=== PATIENT | male | born 1960 | race Caucasian/White ===

== ENCOUNTER 2015-12-02 10:07 | Inpatient (IN) | payer OTHER ==
[~2015-12-02] VITALS: Ht 180.3 cm; Wt 94.0 kg
[2015-12-02] VITALS (17 sets, daily range): BP systolic 70–135; BP diastolic 34–85; PULSE 103–133; RESP 14–24; TEMP 97.4–98.2; O2SAT 90–100
[~2015-12-02 10:07] MED LIST: ALLO300T2 PO; CALC500T PO; CIPR500T2 PO; COLC1TAB7 PO; DOCU250C PO; FLAG500T PO; FURO20 PO; LISI-363 PO; METH10TA PO; MORP60TA20 PO; POTA10IN2 PO; PRED5TAB PO; RANI150 PO; TAB-TAB PO; VITA-13 PO; Z.0.OXYGEN INH
[2015-12-02] MEDS ORDERED: SODIUM CHLOR 0.9% 1000 ML INJ 1,000 ML IV SCH (10:13)
[2015-12-02] MEDS ORDERED: VANCOMYCIN INJ 1,000 MG in SODIUM CHLOR 0.9% 250 ML INJ 250 ML IV ONE (10:15)
[2015-12-02] MEDS ORDERED: cefTRIAXone INJ 1,000 MG in SODIUM CHLORIDE 0.9% INJ 100 ML IV ONE (10:15)
[2015-12-02] MEDS ORDERED: metroNIDAZOLE 500 MG INJ 100 ML IV ONE (10:15)
[2015-12-02] MEDS: SODIUM CHLORIDE 0.9% FLUSH 5 ML FLUSH IVF PRN (10:36)
[2015-12-02] MEDS ORDERED: MORP30SU PO (10:44)
[2015-12-02] MEDS ORDERED: HYDR-2768 PO (10:44)
[2015-12-02] MEDS ORDERED: IBUP800T23 PO (10:44)
[2015-12-02] MEDS ORDERED: PRED5 PO (10:44)
[2015-12-02] MEDS ORDERED: Potassium Citrate PO (10:44)
--- NOTE | 2015-12-02 10:45 | PD ---
HPI Chief Complaint: altered mental status Time Seen by Provider: 10:13 Travel History International Travel<30 days: No Contact w/Intl Traveler<30days: No Traveled to known affect area: No History of Present Illness HPI 55-year-old male came to the emergency room brought by EMS with history of altered mental status. As per EMS the family told them that he has been confused for 2 days but this morning has been the worst. When they arrived patient's GCS was 12. He has history of chronic opiate medications including methadone and morphine that he takes for pain management and hence they gave him Narcan IV which brought the GCS up to 13. The blood glucose was 74. Patient looks lethargic and has been repeating the same words and sentences almost like echolalia. EMS was unable to record his temperature. Patient looks extremely unkempt and poor hygiene. He has open wounds on his right upper and bilateral lower extremities. He has history of hepatitis C. Bedside blood sugar was 76 in the ER. He was tachycardic in 1 teens. Patient was unable to give any meaningful history at this point. His rectal temp in the ER was 97.5. [facility] Past Medical History Narrative Medical List of his past medical history is reviewed from the nursing note. Arthritis: Yes Cancer: No Cardiovascular Problems: Yes Diabetes: No Diminished Hearing: No Endocrine: No Gout: Yes Genitourinary: No Hepatitis: Yes (C) Hiatal Hernia: Yes Hypertension: Yes Immune Disorder: Yes (RA) Musculoskeletal: Yes (OSTEOPENIA, OA, RA) Neurologic: Yes (LEFT LEG NUMBNESS, MIGRAINES) Psychiatric: No Respiratory: Yes (SLEEP APNEA/ O2 AT PM) Immunizations Current: Yes Migraines: Yes Sleep Apnea: Yes Thyroid Disease: No Past Surgical History Abdominal Surgery: Yes (SPLENECTOMY, LEFT ING. HERNIA REP.) AICD: No Body Medical Devices: LEFT HIP HARDWARE Endocrine Surgery: Yes (LYMPH NODES) Joint Replacement: No Neurologic Surgery: Yes (BACK SURGERY) Oral Surgery: Yes (TONSILLECTOMY) Pacemaker: No Tonsillectomy: Yes Other Surgery: Yes Social History Alcohol Use: No Tobacco Use: No Substance Use: No Allergies-Medications (Allergen,Severity, Reaction): Coded Allergies: Compazine (Verified Allergy, Severe, VOMITING, RASH, 08/26/14) SLURRED SPEECH, MIGRAINES Demerol (Verified Allergy, Severe, VOMITING, 08/26/14) Levaquin (Verified Allergy, Severe, 08/26/14) Penicillin (Verified Allergy, Severe, Rash, 08/26/14) Phenergan (Verified Allergy, Severe, VOMITING, 08/26/14) Uncoded Allergies: ANTI-CONVULSIVES (Allergy, Severe, MIGRAINES, SLURRED SPEECH,, 01/23/14) Comments List of his allergies reviewed from the nursing note. Reported Meds & Prescriptions Reported Meds & Active Scripts Active Reported Hctz (Hydrochlorothiazide) 25 Mg Tab 25 Mg PO DAILY Ibuprofen 800 Mg Tab 800 Mg PO BID 14 Days Deltasone 5 mg Tab (Prednisone) 5 Mg Tab 5 Mg PO DIRECTED Titrating Dose [Potassium Citrate] 99 Mg PO DAILY Morphine Sulfate Er (Morphine Sulfate) 30 Mg Tab 30 Mg PO TID 14 Days Lisinopril 20 mg (Lisinopril) 20 Mg Tab 20 Mg PO BID Oxygen (O2) (Miscellaneous Medication) Inha 1 L INH HS Allopurinol 300 Mg Tab 600 Mg PO DAILY Methadone Hcl (Methadone HCl) 10 Mg Tab 10 Mg PO BID Narrative Medication List of his home medications reviewed from the nursing note. Review of Systems Except as stated in HPI: all other systems reviewed are Neg Physical Exam Narrative GENERAL: Lethargic, trying to respond and answer questions but comes out more as repetitive words and sentences like echolalia. SKIN: Cold and Pale. Generalized anasarca. Multiple open wounds in the lower extremity. Right upper extremity is more edematous than the left with a large black, necrotic skin area on the dorsum of the hand and surrounding skin and palmar erythema HEAD: Atraumatic. Normocephalic. EYES: Pupils equal and round. No scleral icterus. No injection or drainage. ENT: No nasal bleeding or discharge. Extremely dry and quantity mucous membrane and lips NECK: Trachea midline. No JVD. CARDIOVASCULAR: Regular rate and rhythm. No murmur appreciated. RESPIRATORY: No accessory muscle use. Clear to auscultation. Breath sounds equal bilaterally. GASTROINTESTINAL: Abdomen soft, non-tender, nondistended. Hepatic and splenic margins not palpable. MUSCULOSKELETAL: No obvious deformities. No clubbing. No cyanosis. No edema. NEUROLOGICAL: GCS of 12, slurred speech. Motor grossly intact. PSYCHIATRIC: Unable to assess Data Data Last Documented VS Vital Signs Date Time Temp Pulse Resp B/P Pulse Ox O2 Delivery O2 Flow Rate FiO2 12/02/15 12:42 100 12/02/15 12:40 96 12/02/15 11:15 106 22 112/63 Nasal Cannula 2 12/02/15 10:10 97.4 Orders Electrocardiogram (12/02/15 10:13) Alcohol (Ethanol) (12/02/15 10:13) Ammonia (12/02/15 10:13) Complete Blood Count With Diff (12/02/15 10:13) Comprehensive Metabolic Panel (12/02/15 10:13) Creatine Kinase (Cpk) (12/02/15 10:13) Drug Screen, Random Urine (12/02/15 10:13) Prothrombin Time / Inr (Pt) (12/02/15 10:13) Act Partial Throm Time (Ptt) (12/02/15 10:13) Salicylates (Aspirin) (12/02/15 10:13) Troponin I (12/02/15 10:13) Tylenol (Acetaminophen) (12/02/15 10:13) Thyroid Stimulating Hormone (12/02/15 10:13) Lactic Acid Sepsis Protocol (12/02/15 10:13) Urinalysis - C+S If Indicated (12/02/15 10:13) Arterial Blood Gas (Abg) (12/02/15 10:13) Blood Culture (12/02/15 10:13) Chest, Single Ap (12/02/15 10:13) Ct Brain W/O Iv Contrast(Rout) (12/02/15 10:13) Blood Glucose (12/02/15 10:13) Ecg Monitoring (12/02/15 10:13) Iv Access Insert/Monitor (12/02/15 10:13) Oximetry (12/02/15 10:13) Sodium Chloride 0.9% Flush (Ns Flush) (12/02/15 10:15) Sodium Chlor 0.9% 1000 Ml Inj (Ns 1000 M (12/02/15 10:13) Vancomycin Inj (Vancomycin Inj) (12/02/15 10:15) Ceftriaxone Inj (Rocephin Inj) (12/02/15 10:15) Metronidazole 500 Mg Inj (Flagyl 500 Mg (12/02/15 10:15) Aztreonam Inj (Azactam Inj) (12/02/15 11:15) Urine Culture (12/02/15 10:30) Lactulose Liq (Lactulose Liq) (12/02/15 12:00) CKMB (12/02/15 10:30) CKMB% (12/02/15 10:30) Calcium Gluconate Inj (Calcium Gluconate (12/02/15 12:30) Propofol 1000 Mg/100 Ml Inj (Diprivan 10 (12/02/15 12:34) Etomidate Inj (Amidate Inj) (12/02/15 12:34) Rocuronium Inj (Zemuron Inj) (12/02/15 12:34) Sodium Chlor 0.9% 1000 Ml Inj (Ns 1000 M (12/02/15 12:30) Rocuronium Inj (Zemuron Inj) (12/02/15 12:30) Etomidate Inj (Amidate Inj) (12/02/15 12:30) Admit Order (Ed Use Only) (12/02/15 12:28) Labs Laboratory Tests Test 12/02/15 12/02/15 10:30 11:50 Urine Color DARK-YELLOW Urine Turbidity CLOUDY Urine pH 5.5 Urine Specific [place] 1.023 Urine Protein 100 mg/dL Urine Glucose (UA) NEG mg/dL Urine Ketones NEG mg/dL Urine Occult Blood SMALL Urine Nitrite NEG Urine Bilirubin NEG Urine Urobilinogen LESS THAN 2.0 MG/DL Urine Leukocyte Esterase TRACE Urine RBC 15 /hpf Urine WBC 8 /hpf Urine Amorphous Sediment MANY Urine Bacteria MOD /hpf Urine Mucus FEW /lpf Microscopic Urinalysis Comment CATH-CULTURE IND Sodium Level 139 MEQ/L Potassium Level 4.7 MEQ/L Chloride Level 105 MEQ/L Carbon Dioxide Level 16.6 MEQ/L Anion Gap 17 MEQ/L Blood Urea Nitrogen 119 MG/DL Creatinine 6.05 MG/DL Estimat Glomerular Filtration 10 ML/MIN Rate Random Glucose 73 MG/DL Lactic Acid Level 1.4 mmol/L Calcium Level 6.7 MG/DL Protein Corrected Calcium 7.5 MG/DL Total Bilirubin 1.4 MG/DL Aspartate Amino Transf 114 U/L (AST/SGOT) Alanine Aminotransferase 63 U/L (ALT/SGPT) Alkaline Phosphatase 268 U/L Ammonia 71 MCMOL/L Total Creatine Kinase 988 U/L Creatine Kinase MB 33.7 NG/ML Creatine Kinase MB % 3.4 % Troponin I 0.07 NG/ML Total Protein 5.4 GM/DL Albumin 1.3 GM/DL Thyroid Stimulating Hormone 0.026 uIU/ML 3rd Gen Salicylates Level 2.5 MG/DL Urine Opiates Screen POS Acetaminophen Level 5.6 MCG/ML Urine Barbiturates Screen NEG Urine Amphetamines Screen NEG Urine Benzodiazepines Screen NEG Urine Cocaine Screen NEG Urine Cannabinoids Screen NEG Ethyl Alcohol Level LESS THAN 3 MG/DL Blood Type B POSITIVE Antibody Screen NEGATIVE Blood Bank Comment White Blood Count 13.6 TH/MM3 Red Blood Count 2.78 MIL/MM3 Hemoglobin 8.9 GM/DL Hematocrit 26.8 % Mean Corpuscular Volume 96.3 FL Mean Corpuscular Hemoglobin 31.9 PG Mean Corpuscular Hemoglobin 33.1 % Concent Red Cell Distribution Width 16.7 % Platelet Count 214 TH/MM3 Mean Platelet Volume 8.6 FL Neutrophils (%) (Auto) 98.0 % Lymphocytes (%) (Auto) 1.4 % Monocytes (%) (Auto) 0.2 % Eosinophils (%) (Auto) 0.3 % Basophils (%) (Auto) 0.1 % Neutrophils # (Auto) 13.3 TH/MM3 Lymphocytes # (Auto) 0.2 TH/MM3 Monocytes # (Auto) 0.0 TH/MM3 Eosinophils # (Auto) 0.0 TH/MM3 Basophils # (Auto) 0.0 TH/MM3 CBC Comment AUTO DIFF Differential Total Cells 100 Counted Neutrophils % (Manual) 53 % Band Neutrophils % 32 % Lymphocytes % 5 % Monocytes % 4 % Neutrophils # (Manual) 12.4 TH/MM3 Metamyelocytes 6 % Nucleated Red Blood Cells 1 /100 WBC Differential Comment FINAL DIFF MANUAL Toxic Vacuolation PRESENT Platelet Estimate NORMAL Platelet Morphology Comment NORMAL Ovalocytes 1+ Acanthocytes 1+ Prothrombin Time 11.7 SEC Prothromb Time International 1.1 RATIO Ratio Activated Partial 35.9 SEC Thromboplast Time MDM Medical Decision Making Medical Screen Exam Complete: Yes Emergency Medical Condition: Yes Medical Record Reviewed: Yes Interpretation(s) 12-lead EKG has some motion artifacts and reviewed by me. Normal sinus rhythm, tachycardia, normal axis, nonspecific ST-T wave changes. Heart rate of 114 bpm. Differential Diagnosis Sepsis, uremia, hepatic encephalopathy, intracranial bleed, CVA, metabolic abnormalities Narrative Course 11:06 AM awaiting for the blood test results and the CAT scan and x-rays to be done and resulted. Patient is getting 1 L of IV fluid bolus wide open through the central line that has been provided by me. He will definitely require admission. I have gone ahead and given him a wide spectrum coverage antibiotic. 12:48 PM Patient's mental status worsened with a GCS of 9-10. I have intubated him to protect his airway. I used Rocuronium due to patient's ARF as per the labs. I notified the sorting and folding supervisor regarding the patient and admission. He has accepted the case. Patient tolerated the procedure well. I have notified his brother and his used been here on multiple one occasion patient's condition and the critical nature of it. Patient was given another liter of IV fluid bolus. His calcium was low and I have ordered 1 g of IV calcium gluconate. Family confirmed that patient does not have pre-existing renal failure or renal insufficiency history that they know of. Critical Care Narrative Aggregate critical care time was 90 minutes. Time to perform other separately billable procedures was not included in the critical care time. My time did not include minutes spent treating any other patients simultaneously or on activities that did not directly contribute to the patient's treatment. The services I provided to this patient were to treat and/or prevent clinically significant deterioration that could result in: Altered mental status, respiratory failure, intubation and ventilator management, sepsis, acute renal failure I provided critical care services requiring my management, as noted below: Chart data review, documentation time, medication orders and management, vital sign assessments/reviewing monitor data, ordering and reviewing lab tests, ordering and interpreting/reviewing x-rays and diagnostic studies, care of the patient and discussion of the patient with the admitting physicians. Procedures Procedure Narrative CENTRAL VENOUS LINE: The site was prepped with Betadine and sterilely draped. It was infiltrated with 1% lidocaine plain. The deep vein was cannulated using normal Seldinger technique. A triple lumen central line was placed in the right subclavian site and secured with simple interrupted suture. The site was sterilely dressed. The patient tolerated the procedure . After the risks and benefits were discussed the following procedure was performed: INTUBATION: The patient was put in optimal position for the procedure. Rapid sequence intubation was initiated by me using 20 milligrams of etomidate IV and 100 milligrams of rocuronium IV. The patient was intubated with a 7.5 cuffed endotracheal tube. Tube placement was confirmed by visualization of the tube and balloon passing through the cords, capnometry and subsequent chest x-ray. Breath sounds were equal and well aerated bilaterally postintubation. No breath sounds over stomach. Patient tolerated procedure well. EKG Prior to Arrival: No Sepsis Criteria SIRS Criteria (2 or more): Heart rate over 90, WBC > 08463, < 4000 or > 10% bands Sepsis Criteria (SIRS+source): Infect source susp/known Severe Sepsis (+one): Organ Dysfunction, Acute Oliguria/Renal Failure Multiple Organ Dysfunction Syn: Evidence -2 organs failing Physician Communication Physician Communication Dr. Mac Diagnosis Primary Impression: Altered mental status Qualified Code: R41.0 - Delirium Additional Impressions: Sepsis Qualified Code: A41.9 - Sepsis, due to unspecified organism Acute renal failure Qualified Code: N17.9 - Acute renal failure, unspecified acute renal failure type Respiratory failure Qualified Code: J96.00 - Acute respiratory failure, unspecified whether with hypoxia or hypercapnia Hyperammonemia UTI (urinary tract infection) Qualified Code: N39.0 - Urinary tract infection with hematuria, site unspecified Admitting Information Admitting Physician Requests: it Rajinder Lopez MD Dec 02, 2015 10:45
[2015-12-02] MEDS ORDERED: AZTREONAM INJ 2,000 MG in SODIUM CHLORIDE 0.9% INJ 100 ML IV ONE (11:15)
--- NOTE | 2015-12-02 11:20 | RADRPT ---
EXAM DATE/TIME: 12/02/2015 10:34 [facility] COMPARISON: No previous studies available for comparison. INDICATIONS : Altered mental status. Shortness of breath. MEDICAL HISTORY : Hypertension. SURGICAL HISTORY : None. ENCOUNTER: Initial ACUITY: 1 day PAIN SCORE: 0/10 LOCATION: Bilateral chest FINDINGS: A single view of the chest demonstrates the heart size to be enlarged. There is a right subclavian li ne in place with the tip overlying the right atrium. The study is taken with poor inspiratory effort. There is some increased density throughout the lungs especially the bases. There are compressive def ormity at the T12 vertebral body. CONCLUSION: Expiratory chest x-ray with likely compressive changes especially at the bases. There is cardiomegaly. Arnaldo Reyes MD on December 02, 2015 at 11:13 Board Certified Radiologist. This report was verified electronically.
--- NOTE | 2015-12-02 11:29 | RADRPT ---
EXAM DATE/TIME: 12/02/2015 11:00 [facility] COMPARISON: No previous studies available for comparison. INDICATIONS : Altered mental status today. RADIATION DOSE: 56.35 CTDIvol (mGy) MEDICAL HISTORY : Hypertension. SURGICAL HISTORY : Tonsillectomy. ENCOUNTER: Initial ACUITY: 1 day PAIN SCALE: 0/10 LOCATION: Bilateral head TECHNIQUE: Multiple contiguous axial images were obtained of the head. Using automated exposure control and adj ustment of the mA and/or kV according to patient size, radiation dose was kept as low as reasonably a chievable to obtain optimal diagnostic quality images. FINDINGS: CEREBRUM: The ventricles are normal for age. No evidence of midline shift, mass lesion, hemorrhage or acute in farction. No extra-axial fluid collections are seen. POSTERIOR FOSSA: The cerebellum and brainstem are intact. The 4th ventricle is midline. The cerebellopontine angle i s unremarkable. EXTRACRANIAL: The visualized portion of the orbits is intact. There is an air-fluid level in the right maxillary si nus. SKULL: The calvaria is intact. No evidence of skull fracture. CONCLUSION: 1. No intracranial abnormality is seen. 2. Air-fluid level in the right maxillary sinus. Arnaldo Reyes MD on December 02, 2015 at 11:22 Board Certified Radiologist. This report was verified electronically.
[2015-12-02 11:33] LABS: BACTERIA, URINE MOD /hpf; BLOOD, URINE SMALL (NEG); GLUCOSE,URINE NEG (NEG); KETONE, URINE NEG (NEG); MUCUS URINE FEW /lpf (OCC); NITRITE,URINE NEG (NEG); PH, URINE 5.5 (5.0-8.5); URINE COLOR DARK-YELLOW (YELLW/STRAW)
[2015-12-02 11:35] LABS: COMMENT (UR) CATH-CULTURE IND; CULTURE IF INDICATED CATH CULTURE IND
[2015-12-02 11:51] LABS: ALT (GPT) 63 U/L (12-78); ANION GAP 17 MEQ/L (5-15); AST (GOT) 114 U/L (15-37); BICARBONATE 16.6 MEQ/L (21.0-32.0); BLOOD UREA NITROGEN 119 MG/DL (7-18); CHLORIDE 105 MEQ/L (98-107); GLOMERULAR FILTRATION RATE 10 ML/MIN (>89); POTASSIUM 4.7 MEQ/L (3.5-5.1); SODIUM (NA) 139 MEQ/L (136-145)
[2015-12-02] MEDS ORDERED: LACTULOSE SYRUP 20 GM/30 ML CUP PO ONE (12:00)
[2015-12-02 12:01] LABS: AUTOMATED NEUTROPHIL # 13.3 TH/MM3 (1.8-7.7); BASOPHIL % 0.1 % (0.0-2.0); EOSINOPHIL % 0.3 % (0.0-4.0); HEMATOCRIT 26.8 % (39.0-51.0); LYMPH % 1.4 % (9.0-44.0); LYMPHOCYTE # 0.2 TH/MM3 (1.0-4.8); MEAN CELL VOLUME 96.3 FL (80.0-100.0); MEAN CORPUSCULAR HEMOGLOBIN 31.9 PG (27.0-34.0); MEAN CORPUSCULAR HGB CONC 33.1 % (32.0-36.0); MONO % 0.2 % (0.0-8.0); PLATELET COUNT 214 TH/MM3 (150-450); RED BLOOD COUNT 2.78 MIL/MM3 (4.50-5.90); RED CELL DISTRIBUTION WIDTH 16.7 % (11.6-17.2); WHITE BLOOD COUNT 13.6 TH/MM3 (4.0-11.0)
[2015-12-02 12:03] LABS: HEMO FLAGS AUTO DIFF
[2015-12-02 12:09] LABS: AMPHETAMINE, URINE NEG (NEG); BARBITURATES, URINE NEG (NEG); COCAINE, URINE NEG (NEG)
[2015-12-02 12:10] LABS: APTT (PATIENT) 35.9 SEC (22.6-28.8); INTERNATIONAL NORMALIZED RATIO 1.1 RATIO; PROTHROMBIN TIME - PATIENT 11.7 SEC (9.8-11.4)
[2015-12-02 12:20] LABS: ACETAMINOPHEN 5.6 MCG/ML (10.0-30.0); ALKALINE PHOSPHATASE 268 U/L (45-117); CALCIUM-PROTEIN CORRECTED 7.5 MG/DL (8.5-10.1); CREATINE KINASE 988 U/L (39-308); TOTAL BILIRUBIN ADULT 1.4 MG/DL (0.2-1.0)
[2015-12-02] MEDS ORDERED: CALCIUM GLUCONATE 10% 1 GM/10 ML VIAL IV PUSH ONE (12:30)
[2015-12-02] MEDS ORDERED: SODIUM CHLOR 0.9% 1000 ML INJ 1,000 ML IV ONE ×5 (12:30→16:15)
[2015-12-02] MEDS ORDERED: ROCURONIUM INJ 100 MG/10 ML VIAL IV ONE (12:30)
[2015-12-02] MEDS ORDERED: ETOMIDATE 20 MG/10 ML VIAL IV PUSH ONE (12:30)
[2015-12-02] MEDS ORDERED: ETOMIDATE 20 MG/10 ML VIAL ONE (12:34)
[2015-12-02] MEDS ORDERED: ROCURONIUM INJ 50 MG/5 ML VIAL ONE ×2 (12:34→12:43)
[2015-12-02] MEDS ORDERED: PROPOFOL 1000 MG/100 ML INJ 100 ML ONE (12:34)
[2015-12-02 12:35] LABS: CKMB 33.7 NG/ML (0.5-3.6)
[2015-12-02 12:56] LABS: BANDS 32 % (0-6); CORRECTED NUCLEATED RBC 1 /100 WBC (0-0); METAMYELOCYTES 6 % (0-1); NEUTROPHIL # MANUAL DIFF 12.4 TH/MM3 (1.8-7.7); POLYS (SEG NEUTROPHILS) 53 % (16-70); WBC DIFF SAMPLE 100
[2015-12-02 12:57] LABS: ACANTHOCYTES 1+ (NORMAL); OVALOCYTES 1+ (NORMAL); PLATELET ESTIMATE SMEAR NORMAL (NORMAL); PLATELET MORPHOLOGY NORMAL (NORMAL); SCAN/DIFF FINAL DIFF MANUAL
[2015-12-02 12:58] LABS: TOXIC VACUOLATION PRESENT (NONE SEEN)
[2015-12-02] MEDS ORDERED: PROPOFOL 1000 MG/100 ML INJ 100 ML IV SCH (13:00)
[2015-12-02 13:31] LABS: BLOOD GAS BASE EXCESS -12.4 mmol/L (-2-2); BLOOD GAS CARBOXYHEMOGLOBIN 0.8 % (0-4); BLOOD GAS HCO3 13 mmol/L (22-26); BLOOD GAS O2 HGB SATURATION 94 % (90-100); BLOOD GAS OXYGEN CONTENT 11.4 Vol % (12.0-20.0); BLOOD GAS PCO2 31 mmHg (38-42); BLOOD GAS PO2 136 mmHG (61-120); BLOOD GAS TOTAL HGB 8.5 G/DL (12.0-16.0); TEMP CORR TO 98.6
[2015-12-02 13:34] LABS: CRITICAL VALUE YES; DRAW SITE RT FEMORAL; FIO2 100 %; NUMBER OF ARTERIAL PUNCTURES 1; OXYGEN DEVICE VENTILATOR; STAT YES; VENT SETTINGS AC/18/550/PEEP5
[2015-12-02] MEDS ORDERED: SODIUM CHLOR 0.9% 1000 ML INJ 700 ML IV ONE (13:43)
[2015-12-02] MEDS ORDERED: CHLORHEXIDINE GLUCONATE 2 % 1 PACK (2 CLOTHS) TOP PRN (13:45)
[2015-12-02] MEDS ORDERED: MISCELLANEOUS NURSING INFORMATION XX SCH (13:45)
[2015-12-02] MEDS ORDERED: VANCOMYCIN INJ 1,000 MG in SODIUM CHLOR 0.9% 250 ML INJ 250 ML IV SCH (13:45)
[2015-12-02] MEDS ORDERED: AZTREONAM INJ 2,000 MG in SODIUM CHLORIDE 0.9% INJ 100 ML IV SCH (13:45)
[2015-12-02] MEDS ORDERED: Vancomycin Consult Pharmacy 1 EA XX SCH (13:45)
[2015-12-02] MEDS ORDERED: NOREPINEPHRINE 4 MG/4 ML AMP ONE (14:00)
[2015-12-02] MEDS ORDERED: Vancomycin Consult Pharmacy XX SCH (14:30)
--- NOTE | 2015-12-02 14:30 | RADRPT ---
EXAM DATE/TIME: 12/02/2015 13:00 [facility] COMPARISON: CHEST SINGLE AP, December 02, 2015, 10:34. INDICATIONS : Central line, ET, OG placement, MEDICAL HISTORY : Hypertension. Altered mental status SURGICAL HISTORY : None. ENCOUNTER: Initial ACUITY: 1 day PAIN SCORE: Non-responsive. LOCATION: Bilateral chest FINDINGS: The ET tube and NG tube are well placed. The heart size is normal. There is a right subclavian in p lace with tip overlying the right atrium. The heart size is upper limits of normal. There is some m ild increased density identified at the bases. There is some interstitial prominence. CONCLUSION: 1. ET tube, NG tube and right subclavian line are well placed. 2. Mild cardiomegaly. 2. Suspected mild atelectasis at the lung bases. 4. Minimal prominence to the interstitium which could represent some pulmonary venous hypertension. Arnaldo Reyes MD on December 02, 2015 at 14:20 Board Certified Radiologist. This report was verified electronically.
[2015-12-02] MEDS ORDERED: ENOXAPARIN SODIUM 30 MG/0.3 ML SYRINGE SQ SCH (15:00)
--- NOTE | 2015-12-02 15:04 | HHI.HP ---
[facility] Service Critical Care Medicine Primary Care Physician Ramone Villa MD Admission Diagnosis AMS, respiratory failure, sepsis, ARF, hyperammonemia Diagnosis: Chief Complaint: AMS Travel History International Travel<30 Days: No Contact w/Intl Traveler <30 Da: No Traveled to Known Affected Are: No History of Present Illness 55-year-old male brought by EMS with altered mental status. He has been confused for 2 days but this morning has been the worst. He has history of chronic opiate medications including methadone and morphine that he takes for pain management and hence they gave him Narcan IV which brought the GCS up to 13. The blood glucose was 74. He has open wounds from his right upper and bilateral lower extremities. He has history of hepatitis C. Last week he was pealing and eating shrimps. Bedside blood sugar was 76 in the ER. He was tachycardic in 1 teens and was intubated in the ED for airway protection. Review of Systems ROS Unable to obtain, patient is sedated and intubated Past Family Social History Allergies: Coded Allergies: Compazine (Verified Allergy, Severe, VOMITING, RASH, 08/26/14) SLURRED SPEECH, MIGRAINES Demerol (Verified Allergy, Severe, VOMITING, 08/26/14) Levaquin (Verified Allergy, Severe, 08/26/14) Penicillin (Verified Allergy, Severe, Rash, 08/26/14) Phenergan (Verified Allergy, Severe, VOMITING, 08/26/14) Uncoded Allergies: ANTI-CONVULSIVES (Allergy, Severe, MIGRAINES, SLURRED SPEECH,, 01/23/14) Past Medical History Hepatitis C virus acquired in 1978 after he donated blood Obstructive sleep apnea Gout Rheumatoid arthritis Hypertension Chronic low back pain Obstructive sleep apnea and wears 1 L oxygen at night Chronic migraines Osteopenia History of peritonitis in 1978 after splenectomy for trauma Past Surgical History 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 Anterior cruciate ligament repair left knee Hip fracture repair Liver biopsy Reported Medications Current Medications Medications (Trade) Dose Ordered Sig/[place] Route PRN Reason Start Time Stop Time Status Last Admin Dose Admin IV Flush 2 ml 2 ml UNSCH PRN IVF FLUSH AFTER USING IV ACCESS 12/02/15 10:15 12/02/15 10:36 Propofol 100 ml @ 0 mls/hr TITRATE IV 12/02/15 13:00 Sodium Bicarbonate 100 meq/Dextrose 1,100 ml @ 125 mls/hr [id number] IV 12/02/15 15:00 Ciprofloxacin/ Dextrose (Cipro 200 Mg Premix) 100 ml @ 100 mls/hr Q24H IV 12/02/15 16:00 Enoxaparin Sodium 30 mg 30 mg Q24H SQ 12/02/15 15:00 Metronidazole (Flagyl 500 Mg Inj) 100 ml @ 100 mls/hr Q8H IV 12/02/15 18:00 Miscellaneous Information 1 [id number] XX 12/02/15 13:45 Chlorhexidine Gluconate (Chlorhexidine 2% Cloth) 3 pack Taper DAILY@04 TOP 12/03/15 04:00 11/28/16 03:59 Chlorhexidine Gluconate 3 pack 3 pack UNSCH PRN TOP HYGIENIC CARE 12/02/15 13:45 Propofol 100 ml @ 0 mls/hr TITRATE IV 12/02/15 13:45 Norepinephrine Bitartrate 250 ml @ 0 mls/hr TITRATE IV 12/02/15 13:45 Aztreonam 1000 mg/ Sodium Chloride 100 ml @ 200 mls/hr Q8H IV 12/02/15 20:00 Pharmacy Profile Note (Vancomycin Consult Pharmacy) ml @ 0 mls/hr UNSCH XX 12/02/15 14:30 Family History Negative for pancreatitis Social History . No history of alcohol tobacco or drug use. Physical Exam Vital Signs Vital Signs Date Time Temp Pulse Resp B/P Pulse Ox O2 Delivery O2 Flow Rate FiO2 12/02/15 14:29 103 22 96/46 100 Ventilator 100 12/02/15 13:45 103 22 70/34 100 Ventilator 100 12/02/15 13:30 106 22 95/48 99 Ventilator 100 12/02/15 13:15 109 18 104/47 100 Ventilator 100 12/02/15 13:00 114 18 106/52 98 Ventilator 100 12/02/15 12:45 133 24 121/56 90 12/02/15 12:42 100 12/02/15 12:40 96 100 12/02/15 11:15 106 22 112/63 94 Nasal Cannula 2 12/02/15 10:45 104 24 104/51 94 Nasal Cannula 2 12/02/15 10:36 94 21 12/02/15 10:10 97.4 110 14 114/56 95 Non-Rebreather 10/16/16 10:10 14 96 Nasal Cannula 2 12/02/15 10:10 14 93 Room Air Physical Exam GENERAL: Sedated, Intubated sick appearing male SKIN: Cold and Pale. Generalized anasarca. Multiple open wounds in the lower extremity. Right upper extremity is edematous than the left with a large necrotic hemorrhagic blister on the dorsum of the hand and surrounding skin and palmar erythema HEAD: Atraumatic. Normocephalic. EYES: Pupils equal and round. No scleral icterus. No injection or drainage. ENT: No nasal bleeding or discharge. Extremely dry and quantity mucous membrane and lips NECK: Trachea midline. No JVD. CARDIOVASCULAR: Regular rate and rhythm. No murmur appreciated. RESPIRATORY: No accessory muscle use. Clear to auscultation. Breath sounds equal bilaterally. GASTROINTESTINAL: Abdomen soft, non-tender, nondistended. Hepatic and splenic margins not palpable. MUSCULOSKELETAL: No obvious deformities. No clubbing. No cyanosis. Laboratory Laboratory Tests Test 12/02/15 12/02/15 12/02/15 10:30 11:50 13:15 Urine Color DARK-YELLOW Urine Turbidity CLOUDY Urine pH 5.5 Urine Specific [place] 1.023 Urine Protein 100 Urine Glucose (UA) NEG Urine Ketones NEG Urine Occult Blood SMALL Urine Nitrite NEG Urine Bilirubin NEG Urine Urobilinogen LESS THAN 2.0 Urine Leukocyte Esterase TRACE Urine RBC 15 Urine WBC 8 Urine Amorphous Sediment MANY Urine Bacteria MOD Urine Mucus FEW Microscopic Urinalysis Comment CATH-CULTURE IND Sodium Level 139 Potassium Level 4.7 Chloride Level 105 Carbon Dioxide Level 16.6 Anion Gap 17 Blood Urea Nitrogen 119 Creatinine 6.05 Estimat Glomerular Filtration 10 Rate Random Glucose 73 Lactic Acid Level 1.4 Calcium Level 6.7 Protein Corrected Calcium 7.5 Total Bilirubin 1.4 Aspartate Amino Transf 114 (AST/SGOT) Alanine Aminotransferase 63 (ALT/SGPT) Alkaline Phosphatase 268 Ammonia 71 Total Creatine Kinase 988 Creatine Kinase MB 33.7 Creatine Kinase MB % 3.4 Troponin I 0.07 Total Protein 5.4 Albumin 1.3 Thyroid Stimulating Hormone 0.026 3rd Gen Salicylates Level 2.5 Urine Opiates Screen POS Acetaminophen Level 5.6 Urine Barbiturates Screen NEG Urine Amphetamines Screen NEG Urine Benzodiazepines Screen NEG Urine Cocaine Screen NEG Urine Cannabinoids Screen NEG Ethyl Alcohol Level LESS THAN 3 Blood Type B POSITIVE Antibody Screen NEGATIVE Blood Bank Comment White Blood Count 13.6 Red Blood Count 2.78 Hemoglobin 8.9 Hematocrit 26.8 Mean Corpuscular Volume 96.3 Mean Corpuscular Hemoglobin 31.9 Mean Corpuscular Hemoglobin 33.1 Concent Red Cell Distribution Width 16.7 Platelet Count 214 Mean Platelet Volume 8.6 Neutrophils (%) (Auto) 98.0 Lymphocytes (%) (Auto) 1.4 Monocytes (%) (Auto) 0.2 Eosinophils (%) (Auto) 0.3 Basophils (%) (Auto) 0.1 Neutrophils # (Auto) 13.3 Lymphocytes # (Auto) 0.2 Monocytes # (Auto) 0.0 Eosinophils # (Auto) 0.0 Basophils # (Auto) 0.0 CBC Comment AUTO DIFF Differential Total Cells 100 Counted Neutrophils % (Manual) 53 Band Neutrophils % 32 Lymphocytes % 5 Monocytes % 4 Neutrophils # (Manual) 12.4 Metamyelocytes 6 Nucleated Red Blood Cells 1 Differential Comment FINAL DIFF MANUAL Toxic Vacuolation PRESENT Platelet Estimate NORMAL Platelet Morphology Comment NORMAL Ovalocytes 1+ Acanthocytes 1+ Prothrombin Time 11.7 Prothromb Time International 1.1 Ratio Activated Partial 35.9 Thromboplast Time Blood Gas Puncture Site RT FEMORAL Blood Gas Patient Temperature 98.6 Blood Gas HCO3 13 Blood Gas Base Excess -12.4 Blood Gas Oxygen Saturation 94 Arterial Blood pH 7.26 Arterial Blood Partial 31 Pressure CO2 Arterial Blood Partial 136 Pressure O2 Arterial Blood Oxygen Content 11.4 Arterial Blood 0.8 Carboxyhemoglobin Arterial Blood Methemoglobin 3.0 Blood Gas Hemoglobin 8.5 Oxygen Delivery Device VENTILATOR Blood Gas Ventilator Setting AC/18/550/PEEP5 Blood Gas Inspired Oxygen 100 Date/Time Procedure Status Source Growth 12/02/15 10:30 Urine Culture Received Urine Clean Catch Pending 12/02/15 10:30 Aerobic Blood Culture Received Blood Peripheral Pending 12/02/15 10:30 Anaerobic Blood Culture Received Blood Peripheral Pending Result Diagram: 12/02/15 1150 12/02/15 1030 Assessment and Plan Problem List: (1) History of splenectomy ICD Code: Z90.81 Status: Acute (2) Altered mental status ICD Code: R41.82 Status: Acute (3) Sepsis ICD Code: A41.9 Status: Acute (4) Respiratory failure ICD Code: J96.90 Status: Acute Assessment and Plan Neuro: - sedated, intubated - follow up ammonia level - CT head negative - AMS due to sepsis? Vibrio? - history of liver disease and recent digestion of seafood - continue neuroceles per ICU protocol - supportive care CV - septic shock - aggressive i.v. fluid administration - vigileo - CL placed by ER - will put an a.line in - Levophed PRN to keep MAP > 65 Respiratory - Acute respiratory failure - intubated for airway protection - AC/PC - ABG/CXR daily - no weaning until hemodynamically stable and neurologically improved ID - Severe sepsis - empiric ATB for severe sepsis - deescalate following cultures - ID consult Renal - metabolic acidosis - DEIRDRE - aggressive i.v. hydration - sodium bicarb gtt - strict I&O - electrolyte replacement per ICU protocol GI - start TF - GI prophylaxis Hem - monitor CBS and H&H Endo - ISS DVT/GI prophylaxis - Lovenox -D/C due DEIRDRE, start subQ heparin, Pepcid Critical Care: The total critical care time was 35 minutes. Time to perform other separately billable procedures was not included in the critical care time. Problem Qualifiers (1) Altered mental status: Qualified Code: R41.0 - Delirium (2) Sepsis: Qualified Code: A41.9 - Sepsis, due to unspecified organism (3) Respiratory failure: Qualified Code: J96.00 - Acute respiratory failure, unspecified whether with hypoxia or hypercapnia Chalino Mac MD Dec 02, 2015 15:04
[2015-12-02] MEDS: RESP: ALBUTEROL 2.5 MG/IPRATROPIUM 0.5 MG NEB (SCH) INH ×2 (15:37→20:00)
[2015-12-02] MEDS ORDERED: CIPROFLOXACIN 200 MG PREMIX 100 ML IV SCH (16:00)
[2015-12-02] MEDS: SODIUM BICARBONATE 8.4% INJ 100 MEQ in DEXTROSE 5% IN WATE 1000ML INJ 1,000 ML IV SCH ×4 (16:15→19:21)
[2015-12-02 16:33] LABS: BLOOD GAS BASE EXCESS -12.9 mmol/L (-2-2); BLOOD GAS CARBOXYHEMOGLOBIN 0.2 % (0-4); BLOOD GAS HCO3 13 mmol/L (22-26); BLOOD GAS METHEMOGLOBIN 1.5 % (0-2); BLOOD GAS O2 HGB SATURATION 91 % (90-100); BLOOD GAS OXYGEN CONTENT 17.8 Vol % (12.0-20.0); BLOOD GAS PCO2 27 mmHg (38-42); BLOOD GAS PO2 75 mmHg (61-120); BLOOD GAS TOTAL HGB 13.9 G/DL (12.0-16.0); TEMP CORR TO 98.6
[2015-12-02 16:34] LABS: CRITICAL VALUE YES; OXYGEN DEVICE VENTILATOR
[2015-12-02 16:35] LABS: DRAW SITE ART LINE; FIO2 65 %; STAT NO; VENT SETTINGS A/C 550/22/5PEEP
[2015-12-02] MEDS ORDERED: SODIUM BICARBONATE 8.4% INJ 50 ML ONE (16:44)
[2015-12-02] MEDS ORDERED: SODIUM BICARBONATE 8.4% INJ 50 MEQ/50 ML SYR IV PUSH ONE ×2 (16:45)
[2015-12-02] MEDS ORDERED: CEFEPIME INJ 2,000 MG in SODIUM CHLORIDE 0.9% INJ 100 ML IV SCH (17:15)
[2015-12-02] MEDS ORDERED: ALBUMIN HUMAN 5% 25 GM/500 ML BOTTLE IV ONE (17:30)
--- NOTE | 2015-12-02 17:50 | PD.ID.CON ---
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 On thursday family unable to wake him up and brought him to the ER He was found to be hypotensive, anuric in ARF, was intubated fin ER for airway protection High dose Levaphed (up to 20 mcg) requiored to maintain his BP which at some point was 70/30s His lactic acid wa wnl Family at [facility] reported pt co discomfort/pain of the R hand, deny any GI, urinary complaints or headache He was co back pain but per family this is his chronic pain issue he was pealing and eating shrimps prior to this but per he pealed and ate any well cooked shrimps Past Family Social History Allergies: Coded Allergies: Compazine (Verified Allergy, Severe, VOMITING, RASH, 08/26/14) SLURRED SPEECH, MIGRAINES Demerol (Verified Allergy, Severe, VOMITING, 08/26/14) Levaquin (Verified Allergy, Severe, 08/26/14) Penicillin (Verified Allergy, Severe, Rash, 08/26/14) Phenergan (Verified Allergy, Severe, VOMITING, 08/26/14) Uncoded Allergies: ANTI-CONVULSIVES (Allergy, Severe, MIGRAINES, SLURRED SPEECH,, 01/23/14) Past Medical History Hepatitis C virus acquired in 1978 after he donated blood Obstructive sleep apnea Gout Rheumatoid arthritis Hypertension Chronic low back pain Obstructive sleep apnea and wears 1 L oxygen at night Chronic migraines Osteopenia History of peritonitis in 1978 after splenectomy for trauma Past Surgical History 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 Social History No Tobacco. No ETOH. No Illicit Drugs. Physical Exam Vital Signs Vital Signs Date Time Temp Pulse Resp B/P Pulse Ox O2 Delivery O2 Flow Rate FiO2 12/02/15 15:26 98 60 12/02/15 14:30 100 96 12/02/15 14:29 103 22 96/46 100 Ventilator 100 12/02/15 13:45 103 22 70/34 100 Ventilator 100 12/02/15 13:30 106 22 95/48 99 Ventilator 100 12/02/15 13:15 109 18 104/47 100 Ventilator 100 12/02/15 13:00 114 18 106/52 98 Ventilator 100 12/02/15 12:45 133 24 121/56 90 12/02/15 12:42 100 12/02/15 12:40 96 100 12/02/15 11:15 106 22 112/63 94 Nasal Cannula 2 12/02/15 10:45 104 24 104/51 94 Nasal Cannula 2 12/02/15 10:36 94 21 12/02/15 10:10 97.4 110 14 114/56 95 Non-Rebreather 12/02/15 10:10 14 96 Nasal Cannula 2 12/02/15 10:10 14 93 Room Air Physical Exam CONSTITUTIONAL/GENERAL: This is an adequately nourished patient, in no apparent distress. SKIN: No jaundice, rashes, multiple small poorly healing lesions. Ecchymoses on upper extremities. Multiple small wounds seen anteriorly on BLE. Skin temperature decreased BLE. Not diaphoretic. HEAD: Atraumatic. Normocephalic. EYES: Pupils equal and round and reactive. Extraocular motions intact. + mild scleral icterus.Pale conjunctivae No injection or drainage. Fundi not examined. ENT: Nose without bleeding or purulent drainage. Oral without visible erythema, exudates, masses, or lesions. NECK: Trachea midline. Supple, nontender. No palpable thyroid enlargement or nodularity. CARDIOVASCULAR: Regular rate and rhythm without murmurs, gallops, or rubs. No JVD. Peripheral pulses symmetric. RESPIRATORY/CHEST: Symmetric, unlabored respirations. Clear to auscultation. Breath sounds equal bilaterally. No wheezes, rales, or rhonchi. GASTROINTESTINAL: Abdomen soft, non-tender, nondistended. No hepato-splenomegaly , or palpable masses. No guarding. Bowel sounds present. GENITOURINARY: Without palpable bladder distension. Sandoval catheter in place with minimal amount of brownish urine MUSCULOSKELETAL: Extremities without clubbing, + 2 cyanosis, + diffuse 1+ edema. No joint tenderness or effusion noted. + mottling no clubbing. LYMPHATICS: No palpable cervical or supraclavicular adenopathy. NEUROLOGICAL: Unresponsive even to sternal rub, though briefly half- opned his eyes Not FC PSYCHIATRIC: unable to assess Laboratory Laboratory Tests Test 12/02/15 12/02/15 12/02/15 12/02/15 10:30 11:50 13:15 16:25 Urine Color DARK-YELLOW Urine Turbidity CLOUDY Urine pH 5.5 Urine Specific [place] 1.023 Urine Protein 100 Urine Glucose (UA) NEG Urine Ketones NEG Urine Occult Blood SMALL Urine Nitrite NEG Urine Bilirubin NEG Urine Urobilinogen LESS THAN 2.0 Urine Leukocyte Esterase TRACE Urine RBC 15 Urine WBC 8 Urine Amorphous Sediment MANY Urine Bacteria MOD Urine Mucus FEW Microscopic Urinalysis Comment CATH-CULTURE IND Sodium Level 139 Potassium Level 4.7 Chloride Level 105 Carbon Dioxide Level 16.6 Anion Gap 17 Blood Urea Nitrogen 119 Creatinine 6.05 Estimat Glomerular Filtration 10 Rate Random Glucose 73 Lactic Acid Level 1.4 Calcium Level 6.7 Protein Corrected Calcium 7.5 Total Bilirubin 1.4 Aspartate Amino Transf 114 (AST/SGOT) Alanine Aminotransferase 63 (ALT/SGPT) Alkaline Phosphatase 268 Ammonia 71 Total Creatine Kinase 988 Creatine Kinase MB 33.7 Creatine Kinase MB % 3.4 Troponin I 0.07 Total Protein 5.4 Albumin 1.3 Thyroid Stimulating Hormone 0.026 3rd Gen Salicylates Level 2.5 Urine Opiates Screen POS Acetaminophen Level 5.6 Urine Barbiturates Screen NEG Urine Amphetamines Screen NEG Urine Benzodiazepines Screen NEG Urine Cocaine Screen NEG Urine Cannabinoids Screen NEG Ethyl Alcohol Level LESS THAN 3 Blood Type B POSITIVE Antibody Screen NEGATIVE Blood Bank Comment White Blood Count 13.6 Red Blood Count 2.78 Hemoglobin 8.9 Hematocrit 26.8 Mean Corpuscular Volume 96.3 Mean Corpuscular Hemoglobin 31.9 Mean Corpuscular Hemoglobin 33.1 Concent Red Cell Distribution Width 16.7 Platelet Count 214 Mean Platelet Volume 8.6 Neutrophils (%) (Auto) 98.0 Lymphocytes (%) (Auto) 1.4 Monocytes (%) (Auto) 0.2 Eosinophils (%) (Auto) 0.3 Basophils (%) (Auto) 0.1 Neutrophils # (Auto) 13.3 Lymphocytes # (Auto) 0.2 Monocytes # (Auto) 0.0 Eosinophils # (Auto) 0.0 Basophils # (Auto) 0.0 CBC Comment AUTO DIFF Differential Total Cells 100 Counted Neutrophils % (Manual) 53 Band Neutrophils % 32 Lymphocytes % 5 Monocytes % 4 Neutrophils # (Manual) 12.4 Metamyelocytes 6 Nucleated Red Blood Cells 1 Differential Comment FINAL DIFF MANUAL Toxic Vacuolation PRESENT Platelet Estimate NORMAL Platelet Morphology Comment NORMAL Ovalocytes 1+ Acanthocytes 1+ Prothrombin Time 11.7 Prothromb Time International 1.1 Ratio Activated Partial 35.9 Thromboplast Time Blood Gas Puncture Site RT FEMORAL ART LINE Blood Gas Patient Temperature 98.6 98.6 Blood Gas HCO3 13 13 Blood Gas Base Excess -12.4 -12.9 Blood Gas Oxygen Saturation 94 91 Arterial Blood pH 7.26 7.28 Arterial Blood Partial 31 27 Pressure CO2 Arterial Blood Partial 136 75 Pressure O2 Arterial Blood Oxygen Content 11.4 17.8 Arterial Blood 0.8 0.2 Carboxyhemoglobin Arterial Blood Methemoglobin 3.0 1.5 Blood Gas Hemoglobin 8.5 13.9 Oxygen Delivery Device VENTILATOR VENTILATOR Blood Gas Ventilator Setting AC/18/550/PEEP5 A/C 550/22/5PEEP Blood Gas Inspired Oxygen 100 65 Date/Time Procedure Status Source Growth 12/02/15 10:30 Urine Culture Received Urine Clean Catch Pending 12/02/15 10:30 Aerobic Blood Culture Received Blood Peripheral Pending 12/02/15 10:30 Anaerobic Blood Culture Received Blood Peripheral Pending Result Diagram: 12/02/15 1150 12/02/15 1030 Imaging Last Impressions Head CT 12/02/15 1013 Signed Impressions: Service Date/Time: Wednesday, December 02, 2015 11:00 - CONCLUSION: 1. No intracranial abnormality is seen. 2. Air-fluid level in the right maxillary sinus. Arnaldo Reyes MD Chest X-Ray 12/02/15 1013 Signed Impressions: Service Date/Time: Wednesday, December 02, 2015 10:34 - CONCLUSION: Expiratory chest x-ray with likely compressive changes especially at the bases. There is cardiomegaly. Arnaldo Reyes MD Assessment and Plan Assessment and Plan Septic shoch with MOSF Source is likely severe SSTI of RUE - abscess with cellulitis vs nec fasc Immunosuppressed Critically ill & unstable PCN allergy, but no probs with Keflex -per mom acute VDRF ARF/ DEIRDRE/ATN 2/2 sepsis - cefepime (adjust per renal fnx) - vanco (adjust per renal fnx) - doxy - clindamycin - cont flagyl for now - dc cipro - STAT surgery consult (both gen sx and hand sx consulted) Discussed Condition With Family at bedside dw RN Dw Shahbaz Garcia Brenner Crossman, Alexandra A. MD Dec 02, 2015 17:50
[2015-12-02] MEDS: DOXYCYCLINE INJ 100 MG in SODIUM CHLORIDE 0.9% INJ 100 ML IV SCH (17:58)
[2015-12-02 18:56] LABS: BLOOD GAS BASE EXCESS -6.7 mmol/L (-2-2); BLOOD GAS CARBOXYHEMOGLOBIN 0.6 % (0-4); BLOOD GAS HCO3 17 mmol/L (22-26); BLOOD GAS METHEMOGLOBIN 1.6 % (0-2); BLOOD GAS O2 HGB SATURATION 95 % (90-100); BLOOD GAS OXYGEN CONTENT 10.5 Vol % (12.0-20.0); BLOOD GAS PCO2 29 mmHg (38-42); BLOOD GAS PO2 98 mmHg (61-120); BLOOD GAS TOTAL HGB 7.8 G/DL (12.0-16.0); CRITICAL VALUE NO; DRAW SITE ART LINE; FIO2 65 %; OXYGEN DEVICE VENTILATOR; STAT NO; TEMP CORR TO 98.6; ULNAR PULSE PRESENT; VENT SETTINGS 550/22/5 PEEP
[2015-12-02] MEDS: NOREPINEPHRINE-DEXTROSE DRIP 250 ML IV SCH (19:11)
[2015-12-02] MEDS: CLINDAMYCIN INJ 900 MG in SODIUM CHLORIDE 0.9% INJ 100 ML IV SCH (19:21)
[2015-12-02] MEDS: metroNIDAZOLE 500 MG INJ 100 ML IV SCH (19:22)
[2015-12-02] MEDS: VASOPRESSIN INJ 40 UNITS in DEXTROSE 5% IN WATER 100ML INJ 98 ML IV SCH ×2 (19:22)
[2015-12-02] MEDS ORDERED: MIDAZOLAM HCL 5 MG/ML VIAL (1 ML) ONE (19:37)
[2015-12-02] MEDS ORDERED: CEFEPIME INJ 1,000 MG in SODIUM CHLORIDE 0.9% INJ 100 ML IV SCH (20:00)
[2015-12-02] MEDS ORDERED: AZTREONAM 1,000 MG/NS 100 ML IV SCH ×2 (20:00)
[2015-12-02 21:13] LABS: APTT (PATIENT) 39.7 SEC (22.6-28.8)
[2015-12-02 21:14] LABS: BICARBONATE 19.1 MEQ/L (21.0-32.0); INDIRECT BILIRUBIN 0.5 MG/DL (0.0-0.8); POTASSIUM 3.6 MEQ/L (3.5-5.1); TOTAL BILIRUBIN ADULT 1.5 MG/DL (0.2-1.0)
[2015-12-02 21:18] LABS: BLOOD GAS BASE EXCESS -9.1 mmol/L (-2-2); BLOOD GAS CARBOXYHEMOGLOBIN 0.4 % (0-4); BLOOD GAS HCO3 15 mmol/L (22-26); BLOOD GAS METHEMOGLOBIN 1.4 % (0-2); BLOOD GAS O2 HGB SATURATION 94 % (90-100); BLOOD GAS OXYGEN CONTENT 13.1 Vol % (12.0-20.0); BLOOD GAS PCO2 26 mmHg (38-42); BLOOD GAS PO2 90 mmHg (61-120); BLOOD GAS TOTAL HGB 9.8 G/DL (12.0-16.0); TEMP CORR TO 98.6
[2015-12-02 21:19] LABS: CRITICAL VALUE YES; DRAW SITE ALINE; FIO2 65 %; OXYGEN DEVICE VENTILATOR; STAT NO; ULNAR PULSE PRESENT; VENT SETTINGS AC22/550/PEEP5
[2015-12-02 22:19] LABS: CALCIUM-PROTEIN CORRECTED 5.3 MG/DL (8.5-10.1)
[2015-12-03] VITALS (18 sets, daily range): BP systolic 87–122; BP diastolic 52–75; PULSE 87–106; RESP 18–22; TEMP 98.5–101.3; O2SAT 96–100
[2015-12-03] MEDS: RESP: ALBUTEROL 2.5 MG/IPRATROPIUM 0.5 MG NEB (SCH) INH ×7 (00:48→23:32)
[2015-12-03 01:21] LABS: BLOOD GAS BASE EXCESS -7.7 mmol/L (-2-2); BLOOD GAS CARBOXYHEMOGLOBIN 0.5 % (0-4); BLOOD GAS HCO3 16 mmol/L (22-26); BLOOD GAS METHEMOGLOBIN 1.6 % (0-2); BLOOD GAS O2 HGB SATURATION 96 % (90-100); BLOOD GAS OXYGEN CONTENT 14.1 Vol % (12.0-20.0); BLOOD GAS PCO2 27 mmHg (38-42); BLOOD GAS PO2 137 mmHg (61-120); BLOOD GAS TOTAL HGB 10.3 G/DL (12.0-16.0); CRITICAL VALUE YES; DRAW SITE ALINE; FIO2 60 %; OXYGEN DEVICE VENTILATOR; STAT NO; TEMP CORR TO 98.6; VENT SETTINGS AC22/550/PEEP5
[2015-12-03] MEDS ORDERED: CALCIUM CHLORIDE INJ 2 GM in SODIUM CHLORIDE 0.9% INJ 100 ML IV SCH (02:00)
[2015-12-03] MEDS: metroNIDAZOLE 500 MG INJ 100 ML IV SCH ×3 (02:07→17:13)
[2015-12-03] MEDS: CHLORHEXIDINE GLUCONATE 2 % 1 PACK (2 CLOTHS) TOP SCH (04:00)
[2015-12-03 04:28] LABS: BLOOD GAS BASE EXCESS -6.4 mmol/L (-2-2); BLOOD GAS CARBOXYHEMOGLOBIN 0.6 % (0-4); BLOOD GAS HCO3 18 mmol/L (22-26); BLOOD GAS METHEMOGLOBIN 1.5 % (0-2); BLOOD GAS O2 HGB SATURATION 96 % (90-100); BLOOD GAS PCO2 29 mmHg (38-42); BLOOD GAS PO2 125 mmHg (61-120); BLOOD GAS TOTAL HGB 9.5 G/DL (12.0-16.0); CRITICAL VALUE NO; FIO2 60 %; OXYGEN DEVICE VENTILATOR; TEMP CORR TO 98.6; VENT SETTINGS AC22/550/5PEEP/60%
[2015-12-03 04:29] LABS: DRAW SITE ART LINE; STAT NO
[2015-12-03] MEDS: DOXYCYCLINE INJ 100 MG in SODIUM CHLORIDE 0.9% INJ 100 ML IV SCH ×2 (04:58→17:11)
[2015-12-03] MEDS ORDERED: oxyCODONE HCL ORAL CONC 20 MG/ML SYRINGE PO SCH (05:00)
[2015-12-03] MEDS ORDERED: HYDROmorphone HCL PF 1 MG/ML VIAL IV PUSH PRN (05:15)
[2015-12-03] MEDS ORDERED: METHADONE 10 MG/ML VIAL IV PUSH ONE (05:15)
[2015-12-03] MEDS: ACETAMINOPHEN 650 MG/20.3 ML UDC PO SCH ×3 (05:33→16:40)
[2015-12-03] MEDS: NOREPINEPHRINE-DEXTROSE DRIP 250 ML IV SCH ×3 (05:34→16:42)
[2015-12-03] MEDS: oxyCODONE HCL ORAL CONC 20 MG/ML SYRINGE PO SCH ×5 (05:34→21:16)
[2015-12-03] MEDS: HYDROmorphone HCL PF 1 MG/ML VIAL IV PUSH PRN ×2 (05:34→06:53)
[2015-12-03] MEDS: CLINDAMYCIN INJ 900 MG in SODIUM CHLORIDE 0.9% INJ 100 ML IV SCH ×2 (05:34→12:11)
[2015-12-03] MEDS: SODIUM BICARBONATE 8.4% INJ 100 MEQ in DEXTROSE 5% IN WATE 1000ML INJ 1,000 ML IV SCH ×4 (05:35→16:41)
[2015-12-03] MEDS: HEPARIN SODIUM - SQ 10,000 UNITS/ML VIAL SQ SCH ×3 (05:35→21:14)
[2015-12-03 08:08] LABS: BLOOD GAS BASE EXCESS -8.7 mmol/L (-2-2); BLOOD GAS CARBOXYHEMOGLOBIN 0.6 % (0-4); BLOOD GAS HCO3 16 mmol/L (22-26); BLOOD GAS METHEMOGLOBIN 1.6 % (0-2); BLOOD GAS O2 HGB SATURATION 96 % (90-100); BLOOD GAS OXYGEN CONTENT 11.3 Vol % (12.0-20.0); BLOOD GAS PCO2 32 mmHg (38-42); BLOOD GAS PO2 134 mmHg (61-120); BLOOD GAS TOTAL HGB 8.2 G/DL (12.0-16.0); TEMP CORR TO 98.6
[2015-12-03 08:09] LABS: CRITICAL VALUE YES; DRAW SITE ART LINE; FIO2 60 %; OXYGEN DEVICE VENTILATOR; STAT YES; VENT SETTINGS AC18/550/5PEEP
[2015-12-03] MEDS ORDERED: SODIUM CHLOR 0.9% 1000 ML INJ 1,000 ML IV ONE (08:15)
[2015-12-03] MEDS ORDERED: SODIUM BICARBONATE 8.4% INJ 50 ML ONE (08:36)
[2015-12-03] MEDS ORDERED: SODIUM BICARBONATE 8.4% INJ 50 MEQ/50 ML SYR IV PUSH ONE ×2 (08:45)
[2015-12-03] MEDS: VASOPRESSIN INJ 40 UNITS in DEXTROSE 5% IN WATER 100ML INJ 98 ML IV SCH ×2 (09:34)
[2015-12-03 11:45] LABS: AUTOMATED NEUTROPHIL # 14.5 TH/MM3 (1.8-7.7); BASOPHIL % 0.1 % (0.0-2.0); EOSINOPHIL # 0.2 TH/MM3 (0-0.4); HEMATOCRIT 26.1 % (39.0-51.0); LYMPH % 2.4 % (9.0-44.0); LYMPHOCYTE # 0.4 TH/MM3 (1.0-4.8); MEAN CELL VOLUME 92.4 FL (80.0-100.0); MEAN CORPUSCULAR HEMOGLOBIN 31.4 PG (27.0-34.0); MONO % 0.9 % (0.0-8.0); NEUT % 95.6 % (16.0-70.0); PLATELET COUNT 115 TH/MM3 (150-450); RED BLOOD COUNT 2.82 MIL/MM3 (4.50-5.90); RED CELL DISTRIBUTION WIDTH 17.4 % (11.6-17.2); WHITE BLOOD COUNT 15.1 TH/MM3 (4.0-11.0)
[2015-12-03 11:47] LABS: HEMO FLAGS AUTO DIFF; INTERNATIONAL NORMALIZED RATIO 1.3 RATIO; PROTHROMBIN TIME - PATIENT 13.4 SEC (9.8-11.4)
[2015-12-03 12:02] LABS: BICARBONATE 22.5 MEQ/L (21.0-32.0); MAGNESIUM 2.2 MG/DL (1.5-2.5)
[2015-12-03 12:04] LABS: CALCIUM-PROTEIN CORRECTED 8.3 MG/DL (8.5-10.1); TOTAL BILIRUBIN ADULT 2.3 MG/DL (0.2-1.0)
[2015-12-03 12:41] LABS: BANDS 30 % (0-6); CORRECTED NUCLEATED RBC 2 /100 WBC (0-0); EOSINOPHILS 1 % (0-4); PLATELET ESTIMATE SMEAR LOW (NORMAL); PLATELET MORPHOLOGY NORMAL (NORMAL); POLYS (SEG NEUTROPHILS) 63 % (16-70); SCAN/DIFF FINAL DIFF MANUAL; WBC DIFF SAMPLE 100
[2015-12-03 12:42] LABS: BURR CELLS 1+ (NORMAL); TOXIC GRANULATION 2+ (NORMAL)
--- NOTE | 2015-12-03 12:42 | HHI.CCPN ---
Objective - Vital Signs Date Time Temp Pulse Resp B/P Pulse Ox O2 Delivery O2 Flow Rate FiO2 12/03/15 12:07 99 55 12/03/15 04:00 98.6 106 22 122/75 12/02/15 14:29 Ventilator 12/02/15 11:15 2 Intake and Output 12/02/15 12/02/15 12/03/15 08:00 16:00 00:00 Intake Total 7019 ml Output Total 150 ml Balance 6869 ml Result Diagram: 12/03/15 1100 12/03/15 1100 Other Results Laboratory Tests Test 12/02/15 12/02/15 12/02/15 12/02/15 13:15 16:25 18:45 21:10 Blood Gas Puncture Site RT FEMORAL ART LINE ART LINE STACI Blood Gas Patient Temperature 98.6 98.6 98.6 98.6 Blood Gas HCO3 13 mmol/L 13 mmol/L 17 mmol/L 15 mmol/L (22-26) (22-26) (22-26) (22-26) Blood Gas Base Excess -12.4 mmol/L -12.9 mmol/L -6.7 mmol/L -9.1 mmol/L (-2-2) (-2-2) (-2-2) (-2-2) Blood Gas Oxygen Saturation 94 % (90-100) 91 % (90-100) 95 % (90-100) 94 % (90- 100) Arterial Blood pH 7.26 7.28 7.39 7.38 (7.380-7.420) (7.380-7.420) (7.380-7.420) (7.380-7.420) Arterial Blood Partial 31 mmHg (38-42) 27 mmHg (38-42) 29 mmHg (38-42) 26 mmHg ( 38-42) Pressure CO2 Arterial Blood Partial 136 mmHG 75 mmHg 98 mmHg 90 mmHg Pressure O2 (61-120) (61-120) (61-120) (61-120) Arterial Blood Oxygen Content 11.4 Vol % 17.8 Vol % 10.5 Vol % 13.1 Vol % (12.0-20.0) (12.0-20.0) (12.0-20.0) (12.0-20.0) Arterial Blood 0.8 % (0-4) 0.2 % (0-4) 0.6 % (0-4) 0.4 % (0-4) Carboxyhemoglobin Arterial Blood Methemoglobin 3.0 % (0-2) 1.5 % (0-2) 1.6 % (0-2) 1.4 % (0-2) Blood Gas Hemoglobin 8.5 G/DL 13.9 G/DL 7.8 G/DL 9.8 G/DL (12.0-16.0) (12.0-16.0) (12.0-16.0) (12.0-16.0) Oxygen Delivery Device VENTILATOR VENTILATOR VENTILATOR VENTILATOR Blood Gas Ventilator Setting AC/18/550/PEEP5 A/C 550/22/5 PEEP AC22/550/PEEP5 550/22/5PEEP Blood Gas Inspired Oxygen 100 % 65 % 65 % 65 % Test 12/03/15 12/03/15 12/03/15 00:15 04:16 07:59 Blood Gas Puncture Site STACI ART LINE ART LINE Blood Gas Patient Temperature 98.6 98.6 98.6 Blood Gas HCO3 16 mmol/L 18 mmol/L 16 mmol/L (22-26) (22-26) (22-26) Blood Gas Base Excess -7.7 mmol/L -6.4 mmol/L -8.7 mmol/L (-2-2) (-2-2) (-2-2) Blood Gas Oxygen Saturation 96 % (90-100) 96 % (90-100) 96 % (90-100) Arterial Blood pH 7.40 7.41 7.33 (7.380-7.420) (7.380-7.420) (7.380-7.420) Arterial Blood Partial 27 mmHg (38-42) 29 mmHg (38-42) 32 mmHg (38-42) Pressure CO2 Arterial Blood Partial 137 mmHg 125 mmHg 134 mmHg Pressure O2 (61-120) (61-120) (61-120) Arterial Blood Oxygen Content 14.1 Vol % 13.0 Vol % 11.3 Vol % (12.0-20.0) (12.0-20.0) (12.0-20.0) Arterial Blood 0.5 % (0-4) 0.6 % (0-4) 0.6 % (0-4) Carboxyhemoglobin Arterial Blood Methemoglobin 1.6 % (0-2) 1.5 % (0-2) 1.6 % (0-2) Blood Gas Hemoglobin 10.3 G/DL 9.5 G/DL 8.2 G/DL (12.0-16.0) (12.0-16.0) (12.0-16.0) Oxygen Delivery Device VENTILATOR VENTILATOR VENTILATOR Blood Gas Ventilator Setting AC22/550/PEEP5 AC22/550/5PEEP/60% AC18/550/5PEEP Blood Gas Inspired Oxygen 60 % 60 % 60 % Objective Remarks GENERAL: Sedated, Intubated sick appearing male SKIN: Cold and Pale. Generalized anasarca. Multiple open wounds in the lower extremity. Right upper extremity is edematous than the left with a large necrotic hemorrhagic blister on the dorsum of the hand and surrounding skin and palmar erythema HEAD: Atraumatic. Normocephalic. EYES: Pupils equal and round. No scleral icterus. No injection or drainage. ENT: No nasal bleeding or discharge. Extremely dry and quantity mucous membrane and lips NECK: Trachea midline. No JVD. CARDIOVASCULAR: Regular rate and rhythm. No murmur appreciated. RESPIRATORY: No accessory muscle use. Clear to auscultation. Breath sounds equal bilaterally. GASTROINTESTINAL: Abdomen soft, non-tender, nondistended. Hepatic and splenic margins not palpable. MUSCULOSKELETAL: No obvious deformities. No clubbing. No cyanosis. A/P Problem List: (1) History of splenectomy ICD Code: Z90.81 Status: Acute (2) Altered mental status ICD Code: R41.82 Status: Acute (3) Sepsis ICD Code: A41.9 Status: Acute (4) Respiratory failure ICD Code: J96.90 Status: Acute Assessment and Plan Neuro: - AMS due to sepsis - staph infection - sedated, intubated - CT head negative - continue neurocheks per ICU protocol - supportive care CV - septic shock - aggressive i.v. fluid administration - vigileo - CL placed by ER - a.line in - Levophed PRN to keep MAP > 65 Respiratory - Acute respiratory failure - intubated for airway protection - AC/PC - ABG/CXR daily - no weaning until hemodynamically stable and neurologically improved ID - Severe sepsis - Necrotizing Fascitis - Debridement 1016 p.m by hand surgery - empiric ATB for severe sepsis - deescalate following cultures - ID consult appreciated Renal - metabolic acidosis - DEIRDRE - aggressive i.v. hydration - sodium bicarb gtt - strict I&O - electrolyte replacement per ICU protocol GI - TF when No OR planned - GI prophylaxis Hem - monitor CBS and H&H Endo - ISS DVT/GI prophylaxis - Lovenox -D/C due DEIRDRE, start subQ heparin, Pepcid Critical Care: The total critical care time was 35 minutes. Time to perform other separately billable procedures was not included in the critical care time. Problem Qualifiers (1) Altered mental status: Qualified Code: R41.0 - Delirium (2) Sepsis: Qualified Code: A41.9 - Sepsis, due to unspecified organism (3) Respiratory failure: Qualified Code: J96.00 - Acute respiratory failure, unspecified whether with hypoxia or hypercapnia Chalino Mac MD Dec 03, 2015 12:42
[2015-12-03] MEDS: ALBUMIN HUMAN 5% 25 GM/500 ML BOTTLE IV SCH (13:14)
--- NOTE | 2015-12-03 13:43 | HHI.IDPN ---
Subjective Subjective Remarks Initially improved last night but now is hypotensive again back on 20 mics of Levaphed Blood clx with GNR 4/4 Hnad and elbow Gstains with GPC in pairs and clusters sp bedside bedridement last night Antibiotics cefepime doxy clinda vanco flagyl Past Medical History RA HCV sp splenectomy Allergies: Coded Allergies: Compazine (Verified Allergy, Severe, VOMITING, RASH, 08/26/14) SLURRED SPEECH, MIGRAINES Demerol (Verified Allergy, Severe, VOMITING, 08/26/14) Levaquin (Verified Allergy, Severe, 08/26/14) Penicillin (Verified Allergy, Severe, Rash, 08/26/14) Phenergan (Verified Allergy, Severe, VOMITING, 08/26/14) Uncoded Allergies: ANTI-CONVULSIVES (Allergy, Severe, MIGRAINES, SLURRED SPEECH,, 01/23/14) Objective . Vital Signs Date Time Temp Pulse Resp B/P Pulse Ox O2 Delivery O2 Flow Rate FiO2 12/03/15 12:07 99 55 12/03/15 08:29 99 60 12/03/15 04:02 100 60 12/03/15 04:00 98.6 106 22 122/75 100 12/03/15 00:48 100 60 12/03/15 00:00 98.9 95 22 108/71 100 12/02/15 20:39 100 65 12/02/15 20:00 97.6 113 22 135/85 100 12/02/15 20:00 97.6 113 22 135/85 100 12/02/15 20:00 114 12/02/15 18:00 109 12/02/15 16:00 98.2 109 18 97/51 12/02/15 15:26 98 60 12/02/15 14:30 100 96 12/02/15 14:29 103 22 96/46 100 Ventilator 100 12/02/15 13:45 103 22 70/34 100 Ventilator 100 12/02/15 13:30 106 22 95/48 99 Ventilator 100 12/02/15 12/02/15 12/03/15 15:00 23:00 07:00 Intake Total 7019 ml 1033 ml Output Total 150 ml 310 ml Balance 6869 ml 723 ml Intake IV Total 6724 ml 1033 ml Packed Cells 295 ml Output Urine Total 150 ml 310 ml . Laboratory Tests Test 12/02/15 12/03/15 11:50 11:00 White Blood Count 13.6 TH/MM3 15.1 TH/MM3 Red Blood Count 2.78 MIL/MM3 2.82 MIL/MM3 Hemoglobin 8.9 GM/DL 8.9 GM/DL Hematocrit 26.8 % 26.1 % Mean Corpuscular Volume 96.3 FL 92.4 FL Mean Corpuscular Hemoglobin 31.9 PG 31.4 PG Mean Corpuscular Hemoglobin 33.1 % 34.0 % Concent Red Cell Distribution Width 16.7 % 17.4 % Platelet Count 214 TH/MM3 115 TH/MM3 Mean Platelet Volume 8.6 FL 9.6 FL Neutrophils (%) (Auto) 98.0 % 95.6 % Lymphocytes (%) (Auto) 1.4 % 2.4 % Monocytes (%) (Auto) 0.2 % 0.9 % Eosinophils (%) (Auto) 0.3 % 1.0 % Basophils (%) (Auto) 0.1 % 0.1 % Neutrophils # (Auto) 13.3 TH/MM3 14.5 TH/MM3 Lymphocytes # (Auto) 0.2 TH/MM3 0.4 TH/MM3 Monocytes # (Auto) 0.0 TH/MM3 0.1 TH/MM3 Eosinophils # (Auto) 0.0 TH/MM3 0.2 TH/MM3 Basophils # (Auto) 0.0 TH/MM3 0.0 TH/MM3 CBC Comment AUTO DIFF AUTO DIFF Differential Total Cells 100 100 Counted Neutrophils % (Manual) 53 % 63 % Band Neutrophils % 32 % 30 % Lymphocytes % 5 % 4 % Monocytes % 4 % 2 % Neutrophils # (Manual) 12.4 TH/MM3 14.0 TH/MM3 Metamyelocytes 6 % Nucleated Red Blood Cells 1 /100 WBC 2 /100 WBC Differential Comment FINAL DIFF FINAL DIFF MANUAL MANUAL Toxic Vacuolation PRESENT Platelet Estimate NORMAL LOW Platelet Morphology Comment NORMAL NORMAL Ovalocytes 1+ Acanthocytes 1+ Eosinophils % 1 % Toxic Granulation 2+ [place] Cells 1+ Laboratory Tests Test 12/02/15 12/02/15 12/03/15 12/03/15 10:30 20:30 04:30 11:00 Sodium Level 139 MEQ/L 143 MEQ/L 142 MEQ/L Potassium Level 4.7 MEQ/L 3.6 MEQ/L 4.0 MEQ/L Chloride Level 105 MEQ/L 108 MEQ/L 105 MEQ/L Carbon Dioxide Level 16.6 MEQ/L 19.1 MEQ/L 22.5 MEQ/L Anion Gap 17 MEQ/L 16 MEQ/L 15 MEQ/L Blood Urea Nitrogen 119 MG/DL 122 MG/DL 116 MG/DL Creatinine 6.05 MG/DL 4.99 MG/DL 4.58 MG/DL Estimat Glomerular Filtration 10 ML/MIN 12 ML/MIN 14 ML/MIN Rate Random Glucose 73 MG/DL 137 MG/DL 257 MG/DL Lactic Acid Level 1.4 mmol/L 2.7 mmol/L Calcium Level 6.7 MG/DL 5.6 MG/DL 6.6 MG/DL Protein Corrected Calcium 7.5 MG/DL 5.3 MG/DL 8.3 MG/DL Total Bilirubin 1.4 MG/DL 1.5 MG/DL 2.3 MG/DL Aspartate Amino Transf 114 U/L 109 U/L 120 U/L (AST/SGOT) Alanine Aminotransferase 63 U/L 48 U/L 48 U/L (ALT/SGPT) Alkaline Phosphatase 268 U/L 225 U/L 227 U/L Ammonia 71 MCMOL/L Total Creatine Kinase 988 U/L Creatine Kinase MB 33.7 NG/ML Creatine Kinase MB % 3.4 % Troponin I 0.07 NG/ML Total Protein 5.4 GM/DL 4.4 GM/DL 4.0 GM/DL Albumin 1.3 GM/DL 1.5 GM/DL 1.2 GM/DL Thyroid Stimulating Hormone 0.026 uIU/ML 3rd Gen Direct Bilirubin 1.0 MG/DL Indirect Bilirubin 0.5 MG/DL Phosphorus Level 6.7 MG/DL Magnesium Level 2.2 MG/DL Microbiology Date/Time Procedure Status Source Growth 12/02/15 10:30 Aerobic Blood Culture - Preliminary Resulted Blood Peripheral Gram Negative Farhat 12/02/15 10:30 Anaerobic Blood Culture - Preliminary Resulted Gram Negative Farhat 12/02/15 10:30 Aerobic Blood Culture - Preliminary Resulted Blood Peripheral Gram Negative [place] 12/02/15 10:30 Anaerobic Blood Culture - Preliminary Resulted Gram Negative Farhat 12/02/15 10:30 Urine Culture - Preliminary Resulted Urine Clean Catch NO GROWTH IN 24 HOURS. 12/02/15 19:18 Gram Stain - Final Resulted Wound Hand 12/02/15 19:18 Wound Culture Resulted Wound Hand Pending 12/02/15 19:55 Gram Stain - Final Resulted Wound Arm 12/02/15 19:55 Wound Culture Resulted Wound Arm Pending Imaging Last Impressions Head CT 12/02/15 1013 Signed Impressions: Service Date/Time: Wednesday, December 02, 2015 11:00 - CONCLUSION: 1. No intracranial abnormality is seen. 2. Air-fluid level in the right maxillary sinus. Arnaldo Reyes MD Chest X-Ray 12/02/15 1013 Signed Impressions: Service Date/Time: Wednesday, December 02, 2015 10:34 - CONCLUSION: Expiratory chest x-ray with likely compressive changes especially at the bases. There is cardiomegaly. Arnaldo Reyes MD Physical Exam CONSTITUTIONAL/GENERAL: This is an adequately nourished patient, in no apparent distress. SKIN: No jaundice, rashes, multiple small poorly healing lesions. Ecchymoses on upper extremities. Multiple small wounds seen anteriorly on BLE. Skin temperature decreased BLE. Not diaphoretic. HEAD: Atraumatic. Normocephalic. EYES: Pupils equal and round and reactive. Extraocular motions intact. + more prominent scleral icterus, chemosis.Pale conjunctivae No injection or drainage. Fundi not examined. ENT: Nose without bleeding or purulent drainage. Oral without visible erythema, exudates, masses, or lesions. NECK: Trachea midline. Supple, nontender. No palpable thyroid enlargement or nodularity. CARDIOVASCULAR: Regular rate and rhythm without murmurs, gallops, or rubs. No JVD. Peripheral pulses symmetric. RESPIRATORY/CHEST: Symmetric, unlabored respirations. Clear to auscultation. Breath sounds equal bilaterally. No wheezes, rales, or rhonchi. GASTROINTESTINAL: Abdomen soft, non-tender, nondistended. No hepato-splenomegaly , or palpable masses. No guarding. Bowel sounds present. incontinent of liquid brown stool GENITOURINARY: Without palpable bladder distension. Sandoval catheter in place with minimal amount of brownish urine MUSCULOSKELETAL: Extremities without clubbing, -no cyanosis, + diffuse 1+ edema. No joint tenderness or effusion noted. + mottling no clubbing. LYMPHATICS: No palpable cervical or supraclavicular adenopathy. NEUROLOGICAL: Unresponsive even to sternal rub, though briefly half- opened his eyes Not FC PSYCHIATRIC: unable to assess Assessment & Plan Remarks Septic shoch with MOSF GNR bacteremia -source ? Severe SSTI of RUE, Gstain sugg of staph - sp b/s I+D Immunosuppressed Critically ill & unstable PCN allergy, but no probs with Keflex -per mom acute VDRF ARF/ DEIRDRE/ATN 2/2 sepsis - cefepime (adjust per renal fnx) - vanco (adjust per renal fnx) - doxy - clindamycin - cont flagyl for now dw Argelia Catalan MD Dec 03, 2015 13:42
--- NOTE | 2015-12-03 15:24 | PD.PLAS.PN ---
Subjective Remarks Patient intubated Vital Signs Date Time Temp Pulse Resp B/P Pulse Ox O2 Delivery O2 Flow Rate FiO2 12/03/15 12:07 99 55 12/03/15 08:29 99 60 12/03/15 04:02 100 60 12/03/15 04:00 98.6 106 22 122/75 100 12/03/15 00:48 100 60 12/03/15 00:00 98.9 95 22 108/71 100 12/02/15 20:39 100 65 12/02/15 20:00 97.6 113 22 135/85 100 12/02/15 20:00 97.6 113 22 135/85 100 12/02/15 20:00 114 12/02/15 18:00 109 12/02/15 16:00 98.2 109 18 97/51 12/02/15 15:26 98 60 I/O 12/02/15 12/02/15 12/02/15 12/03/15 12/03/15 12/03/15 07:00 15:00 23:00 07:00 15:00 23:00 Intake Total 7019 ml 1033 ml Output Total 150 ml 310 ml Balance 6869 ml 723 ml Intake IV Total 6724 ml 1033 ml Packed Cells 295 ml Output Urine Total 150 ml 310 ml Laboratory Tests Test 12/02/15 12/02/15 12/02/15 12/02/15 16:00 16:25 18:45 19:38 Nasal Screen MRSA (PCR) NEGATIVE Blood Gas Puncture Site ART LINE ART LINE Blood Gas Patient Temperature 98.6 98.6 Blood Gas HCO3 13 17 Blood Gas Base Excess -12.9 -6.7 Blood Gas Oxygen Saturation 91 95 Arterial Blood pH 7.28 7.39 Arterial Blood Partial 27 29 Pressure CO2 Arterial Blood Partial 75 98 Pressure O2 Arterial Blood Oxygen Content 17.8 10.5 Arterial Blood 0.2 0.6 Carboxyhemoglobin Arterial Blood Methemoglobin 1.5 1.6 Blood Gas Hemoglobin 13.9 7.8 Oxygen Delivery Device VENTILATOR VENTILATOR Blood Gas Ventilator Setting A/C 550/22/5 PEEP 550/22/5PEEP Blood Gas Inspired Oxygen 65 65 Crossmatch Leukocyte-Reduced Red Blood Cells Blood Bank Comment Test 12/02/15 12/02/15 12/02/15 12/03/15 20:30 20:40 21:10 00:15 Activated Partial 39.7 Thromboplast Time Sodium Level 143 Potassium Level 3.6 Chloride Level 108 Carbon Dioxide Level 19.1 Anion Gap 16 Blood Urea Nitrogen 122 Creatinine 4.99 Estimat Glomerular Filtration 12 Rate Random Glucose 137 Calcium Level 5.6 Protein Corrected Calcium 5.3 Total Bilirubin 1.5 Direct Bilirubin 1.0 Indirect Bilirubin 0.5 Aspartate Amino Transf 109 (AST/SGOT) Alanine Aminotransferase 48 (ALT/SGPT) Alkaline Phosphatase 225 Total Protein 4.4 Albumin 1.5 Blood Type B POSITIVE Blood Gas Puncture Site STACI SMALL Blood Gas Patient Temperature 98.6 98.6 Blood Gas HCO3 15 16 Blood Gas Base Excess -9.1 -7.7 Blood Gas Oxygen Saturation 94 96 Arterial Blood pH 7.38 7.40 Arterial Blood Partial 26 27 Pressure CO2 Arterial Blood Partial 90 137 Pressure O2 Arterial Blood Oxygen Content 13.1 14.1 Arterial Blood 0.4 0.5 Carboxyhemoglobin Arterial Blood Methemoglobin 1.4 1.6 Blood Gas Hemoglobin 9.8 10.3 Oxygen Delivery Device VENTILATOR VENTILATOR Blood Gas Ventilator Setting AC22/550/PEEP5 AC22/550/PEEP5 Blood Gas Inspired Oxygen 65 60 Test 12/03/15 12/03/15 12/03/15 12/03/15 04:16 04:30 07:59 11:00 Blood Gas Puncture Site ART LINE ART LINE Blood Gas Patient Temperature 98.6 98.6 Blood Gas HCO3 18 16 Blood Gas Base Excess -6.4 -8.7 Blood Gas Oxygen Saturation 96 96 Arterial Blood pH 7.41 7.33 Arterial Blood Partial 29 32 Pressure CO2 Arterial Blood Partial 125 134 Pressure O2 Arterial Blood Oxygen Content 13.0 11.3 Arterial Blood 0.6 0.6 Carboxyhemoglobin Arterial Blood Methemoglobin 1.5 1.6 Blood Gas Hemoglobin 9.5 8.2 Oxygen Delivery Device VENTILATOR VENTILATOR Blood Gas Ventilator Setting AC22/550/5PEEP/60% AC18/550/5PEEP Blood Gas Inspired Oxygen 60 60 Lactic Acid Level 2.7 White Blood Count 15.1 Red Blood Count 2.82 Hemoglobin 8.9 Hematocrit 26.1 Mean Corpuscular Volume 92.4 Mean Corpuscular Hemoglobin 31.4 Mean Corpuscular Hemoglobin 34.0 Concent Red Cell Distribution Width 17.4 Platelet Count 115 Mean Platelet Volume 9.6 Neutrophils (%) (Auto) 95.6 Lymphocytes (%) (Auto) 2.4 Monocytes (%) (Auto) 0.9 Eosinophils (%) (Auto) 1.0 Basophils (%) (Auto) 0.1 Neutrophils # (Auto) 14.5 Lymphocytes # (Auto) 0.4 Monocytes # (Auto) 0.1 Eosinophils # (Auto) 0.2 Basophils # (Auto) 0.0 CBC Comment AUTO DIFF Differential Total Cells 100 Counted Neutrophils % (Manual) 63 Band Neutrophils % 30 Lymphocytes % 4 Monocytes % 2 Eosinophils % 1 Neutrophils # (Manual) 14.0 Nucleated Red Blood Cells 2 Differential Comment FINAL DIFF MANUAL Toxic Granulation 2+ Platelet Estimate LOW Platelet Morphology Comment NORMAL [place] Cells 1+ Prothrombin Time 13.4 Prothromb Time International 1.3 Ratio Sodium Level 142 Potassium Level 4.0 Chloride Level 105 Carbon Dioxide Level 22.5 Anion Gap 15 Blood Urea Nitrogen 116 Creatinine 4.58 Estimat Glomerular Filtration 14 Rate Random Glucose 257 Calcium Level 6.6 Protein Corrected Calcium 8.3 Phosphorus Level 6.7 Magnesium Level 2.2 Total Bilirubin 2.3 Aspartate Amino Transf 120 (AST/SGOT) Alanine Aminotransferase 48 (ALT/SGPT) Alkaline Phosphatase 227 Total Protein 4.0 Albumin 1.2 Date/Time Procedure Status Source Growth 12/02/15 19:55 Gram Stain - Final Resulted Wound Arm 12/02/15 19:55 Wound Culture - Preliminary Resulted Staphylococcus Aureus 12/02/15 10:30 Urine Culture - Preliminary Resulted Urine Clean Catch NO GROWTH IN 24 HOURS. 12/02/15 10:30 Aerobic Blood Culture - Preliminary Resulted Blood Peripheral Gram Negative Farhat 12/02/15 10:30 Anaerobic Blood Culture - Preliminary Resulted Gram Negative Farhat Result Diagram: 12/03/15 1100 12/03/15 1100 Exam Findings Fingers of right hand warm and well perfused. No further skin necrosis. Plan Impression: Right upper extremity is stable at the present time. Plan: Wound care Barbara Pedro MD Dec 03, 2015 15:24
--- NOTE | 2015-12-03 16:07 | EKG ---
Date Performed: 12/02/2015 Time Performed: 10:14:24 PTAGE: 55 years EKG: SINUS TACHYCARDIA Baseline artifact Otherwise Since previous tracing, no significant change noted ABNORMAL RHYTHM ECG NO PREVIOUS TRACING DOCTOR: Aurelio Cunningham Interpretating Date/Time 12/03/2015 16:06:21
[2015-12-03] MEDS: CEFEPIME INJ 2,000 MG in SODIUM CHLORIDE 0.9% INJ 100 ML IV SCH (21:16)
[2015-12-04] VITALS (19 sets, daily range): BP systolic 90–156; BP diastolic 50–83; PULSE 86–117; RESP 18–19; TEMP 98.2–98.8; O2SAT 94–99
[2015-12-04] MEDS: ACETAMINOPHEN 650 MG/20.3 ML UDC PO SCH ×5 (00:11→22:27)
[2015-12-04] MEDS: ALBUMIN HUMAN 5% 25 GM/500 ML BOTTLE IV SCH ×2 (00:11→11:43)
[2015-12-04] MEDS: CLINDAMYCIN INJ 900 MG in SODIUM CHLORIDE 0.9% INJ 100 ML IV SCH ×4 (00:12→20:24)
[2015-12-04] MEDS: NOREPINEPHRINE-DEXTROSE DRIP 250 ML IV SCH ×2 (00:14→20:32)
[2015-12-04] MEDS ORDERED: GLUCAGON 1 MG/ML VIAL OTHER PRN (00:30)
[2015-12-04] MEDS ORDERED: DEXTROSE 50% IN WATER 50 ML VIAL(D50) IV PUSH PRN ×2 (00:30→02:15)
[2015-12-04] MEDS ORDERED: INSULIN REGULAR (IV INFUSION) 100 UNITS in SODIUM CHLORIDE 0.9% INJ 99 ML IV SCH (02:15)
[2015-12-04] MEDS ORDERED: MISC INFORMATION XX ONE (02:15)
[2015-12-04] MEDS: oxyCODONE HCL ORAL CONC 20 MG/ML SYRINGE PO SCH ×5 (02:33→20:24)
[2015-12-04] MEDS: metroNIDAZOLE 500 MG INJ 100 ML IV SCH ×3 (02:34→20:23)
[2015-12-04] MEDS: SODIUM BICARBONATE 8.4% INJ 100 MEQ in DEXTROSE 5% IN WATE 1000ML INJ 1,000 ML IV SCH ×6 (02:34→20:23)
[2015-12-04] MEDS: RESP: ALBUTEROL 2.5 MG/IPRATROPIUM 0.5 MG NEB (SCH) INH ×6 (02:46→23:57)
[2015-12-04] MEDS: CHLORHEXIDINE GLUCONATE 2 % 1 PACK (2 CLOTHS) TOP SCH (03:49)
[2015-12-04] MEDS ORDERED: HIGH DOSE INSULIN NOVOLIN REGULAR SUPPLEMENTAL SCALE SQ SCH (04:00)
[2015-12-04 04:29] LABS: AUTOMATED NEUTROPHIL # 12.3 TH/MM3 (1.8-7.7); BASOPHIL % 0.3 % (0.0-2.0); EOSINOPHIL # 0.1 TH/MM3 (0-0.4); HEMATOCRIT 22.3 % (39.0-51.0); LYMPH % 6.2 % (9.0-44.0); LYMPHOCYTE # 0.8 TH/MM3 (1.0-4.8); MEAN CELL VOLUME 93.4 FL (80.0-100.0); MEAN CORPUSCULAR HEMOGLOBIN 31.2 PG (27.0-34.0); MEAN CORPUSCULAR HGB CONC 33.4 % (32.0-36.0); MONO % 0.6 % (0.0-8.0); NEUT % 91.9 % (16.0-70.0); PLATELET COUNT 59 TH/MM3 (150-450); RED BLOOD COUNT 2.38 MIL/MM3 (4.50-5.90); RED CELL DISTRIBUTION WIDTH 17.4 % (11.6-17.2); WHITE BLOOD COUNT 13.4 TH/MM3 (4.0-11.0)
[2015-12-04 04:36] LABS: HEMO FLAGS AUTO DIFF
[2015-12-04 04:38] LABS: BICARBONATE 24.5 MEQ/L (21.0-32.0); CALCIUM-PROTEIN CORRECTED 7.6 MG/DL (8.5-10.1); MAGNESIUM 1.9 MG/DL (1.5-2.5); POTASSIUM 3.3 MEQ/L (3.5-5.1); TOTAL BILIRUBIN ADULT 1.4 MG/DL (0.2-1.0)
[2015-12-04] MEDS: DOXYCYCLINE INJ 100 MG in SODIUM CHLORIDE 0.9% INJ 100 ML IV SCH ×2 (05:13→15:48)
[2015-12-04] MEDS: HEPARIN SODIUM - SQ 10,000 UNITS/ML VIAL SQ SCH ×4 (05:20→20:34)
--- NOTE | 2015-12-04 05:31 | RADRPT ---
EXAM DATE/TIME: 12/04/2015 03:15 [place] COMPARISON: CHEST SINGLE AP, December 02, 2015, 13:00. INDICATIONS : Shortness of breath. MEDICAL HISTORY : Hypertension. SURGICAL HISTORY : None. ENCOUNTER: Subsequent ACUITY: 3 days PAIN SCORE: Non-responsive. LOCATION: Bilateral chest FINDINGS: Lines and tubes are present not significantly changed. Left basilar opacity is present may be due to a combination of consolidation and or pleural effusion. There is mild degree of pulmonary edema sligh tly worse since the prior examination. Mild right lung base atelectasis and/or infiltrate is seen. CONCLUSION: Left basilar opacity is present may be due to a combination of consolidation and or pleural effusion and probable slight worsening of pulmonary edema. Freddy Connor MD on December 04, 2015 at 5:24 Board Certified Radiologist. This report was verified electronically.
[2015-12-04 05:33] LABS: BLOOD GAS BASE EXCESS -2.1 mmol/L (-2-2); BLOOD GAS CARBOXYHEMOGLOBIN 0.6 % (0-4); BLOOD GAS HCO3 22 mmol/L (22-26); BLOOD GAS METHEMOGLOBIN 1.6 % (0-2); BLOOD GAS O2 HGB SATURATION 96 % (90-100); BLOOD GAS OXYGEN CONTENT 9.8 Vol % (12.0-20.0); BLOOD GAS PCO2 35 mmHg (38-42); BLOOD GAS PO2 153 mmHg (61-120); CRITICAL VALUE NO; TEMP CORR TO 98.6
[2015-12-04 05:34] LABS: OXYGEN DEVICE VENTILATOR; VENT SETTINGS A/C18/550/+5peep
[2015-12-04 05:35] LABS: DRAW SITE ART LINE; FIO2 45 %; STAT NO
[2015-12-04 05:43] LABS: OVALOCYTES 2+ (NORMAL); PLATELET ESTIMATE SMEAR LOW (NORMAL); PLATELET MORPHOLOGY NORMAL (NORMAL); SCAN/DIFF AUTO DIFF CONFIRMED
[2015-12-04] MEDS: VASOPRESSIN INJ 40 UNITS in DEXTROSE 5% IN WATER 100ML INJ 98 ML IV SCH ×2 (06:06)
[2015-12-04] MEDS ORDERED: DIATRIZOATE MEGLUM/DIATRIZOATE SOD 9 ML CUP PO ONE (09:00)
[2015-12-04] MEDS ORDERED: VANCOMYCIN INJ 1,250 MG in SODIUM CHLOR 0.9% 250 ML INJ 250 ML IV SCH (11:00)
[2015-12-04] MEDS ORDERED: VANCOMYCIN INJ 1,750 MG in SODIUM CHLORID 0.9% 500 ML INJ 500 ML IV ONE (11:00)
--- NOTE | 2015-12-04 11:23 | HHI.IDPN ---
Subjective Subjective Remarks on 5 mics of Levaphed and vasopressing Blood clx with E.coli 4/4 Hnad and elbow Gstains with MSSA + large volume liquid diarrhea UOP > 3500 Antibiotics cefepime doxy clinda vanco flagyl Past Medical History RA HCV sp splenectomy Allergies: Coded Allergies: Compazine (Verified Allergy, Severe, VOMITING, RASH, 08/26/14) SLURRED SPEECH, MIGRAINES Demerol (Verified Allergy, Severe, VOMITING, 08/26/14) Levaquin (Verified Allergy, Severe, 08/26/14) Penicillin (Verified Allergy, Severe, Rash, 08/26/14) Phenergan (Verified Allergy, Severe, VOMITING, 08/26/14) Uncoded Allergies: ANTI-CONVULSIVES (Allergy, Severe, MIGRAINES, SLURRED SPEECH,, 01/23/14) Objective . Vital Signs Date Time Temp Pulse Resp B/P Pulse Ox O2 Delivery O2 Flow Rate FiO2 12/04/15 06:00 101 12/04/15 05:00 95/51 94/50 12/04/15 04:00 45 12/04/15 04:00 98.3 112 18 98/56 97 95/51 12/04/15 04:00 93 12/04/15 03:51 98 45 12/04/15 02:00 86 12/04/15 01:20 45 12/04/15 01:19 96 45 12/04/15 00:00 50 12/04/15 00:00 90 12/04/15 00:00 98.8 86 18 109/65 98 132/68 12/04/15 00:00 109/65 132/68 12/03/15 22:40 97 50 12/03/15 22:00 88 12/03/15 21:45 97 50 12/03/15 20:04 98 50 12/03/15 20:00 93 12/03/15 20:00 101.3 87 18 101/55 99 114/60 12/03/15 20:00 50 12/03/15 20:00 101/55 114/60 12/03/15 18:00 91/55 12/03/15 18:00 105 12/03/15 16:47 99 50 12/03/15 16:00 99.0 96 18 102/61 96 12/03/15 16:00 96 12/03/15 14:00 100 12/03/15 12:07 99 55 12/03/15 12:00 93 12/03/15 12:00 98.6 93 18 87/52 100 12/03/15 12/03/15 12/04/15 15:00 23:00 07:00 Intake Total 4426 ml 970 ml 1786 ml Output Total 1850 ml 700 ml 1000 ml Balance 2576 ml 270 ml 786 ml Intake Oral 0 ml 0 ml IV Total 4426 ml 970 ml 1586 ml Other 0 ml 200 ml Output Urine Total 1850 ml 700 ml 1000 ml Gastric Drainage Total 0 ml 0 ml # Bowel Movements 1 1 . Laboratory Tests Test 12/02/15 12/03/15 12/04/15 11:50 11:00 03:25 White Blood Count 13.6 TH/MM3 15.1 TH/MM3 13.4 TH/MM3 Red Blood Count 2.78 MIL/MM3 2.82 MIL/MM3 2.38 MIL/MM3 Hemoglobin 8.9 GM/DL 8.9 GM/DL 7.4 GM/DL Hematocrit 26.8 % 26.1 % 22.3 % Mean Corpuscular Volume 96.3 FL 92.4 FL 93.4 FL Mean Corpuscular Hemoglobin 31.9 PG 31.4 PG 31.2 PG Mean Corpuscular Hemoglobin 33.1 % 34.0 % 33.4 % Concent Red Cell Distribution Width 16.7 % 17.4 % 17.4 % Platelet Count 214 TH/MM3 115 TH/MM3 59 TH/MM3 Mean Platelet Volume 8.6 FL 9.6 FL 8.6 FL Neutrophils (%) (Auto) 98.0 % 95.6 % 91.9 % Lymphocytes (%) (Auto) 1.4 % 2.4 % 6.2 % Monocytes (%) (Auto) 0.2 % 0.9 % 0.6 % Eosinophils (%) (Auto) 0.3 % 1.0 % 1.0 % Basophils (%) (Auto) 0.1 % 0.1 % 0.3 % Neutrophils # (Auto) 13.3 TH/MM3 14.5 TH/MM3 12.3 TH/MM3 Lymphocytes # (Auto) 0.2 TH/MM3 0.4 TH/MM3 0.8 TH/MM3 Monocytes # (Auto) 0.0 TH/MM3 0.1 TH/MM3 0.1 TH/MM3 Eosinophils # (Auto) 0.0 TH/MM3 0.2 TH/MM3 0.1 TH/MM3 Basophils # (Auto) 0.0 TH/MM3 0.0 TH/MM3 0.0 TH/MM3 CBC Comment AUTO DIFF AUTO DIFF AUTO DIFF Differential Total Cells 100 100 Counted Neutrophils % (Manual) 53 % 63 % Band Neutrophils % 32 % 30 % Lymphocytes % 5 % 4 % Monocytes % 4 % 2 % Neutrophils # (Manual) 12.4 TH/MM3 14.0 TH/MM3 Metamyelocytes 6 % Nucleated Red Blood Cells 1 /100 WBC 2 /100 WBC Differential Comment FINAL DIFF FINAL DIFF AUTO DIFF MANUAL MANUAL CONFIRMED Toxic Vacuolation PRESENT Platelet Estimate NORMAL LOW LOW Platelet Morphology Comment NORMAL NORMAL NORMAL Ovalocytes 1+ 2+ Acanthocytes 1+ Eosinophils % 1 % Toxic Granulation 2+ [place] Cells 1+ Laboratory Tests Test 12/02/15 12/03/15 12/03/15 12/04/15 20:30 04:30 11:00 03:25 Sodium Level 143 MEQ/L 142 MEQ/L 140 MEQ/L Potassium Level 3.6 MEQ/L 4.0 MEQ/L 3.3 MEQ/L Chloride Level 108 MEQ/L 105 MEQ/L 101 MEQ/L Carbon Dioxide Level 19.1 MEQ/L 22.5 MEQ/L 24.5 MEQ/L Anion Gap 16 MEQ/L 15 MEQ/L 15 MEQ/L Blood Urea Nitrogen 122 MG/DL 116 MG/DL 97 MG/DL Creatinine 4.99 MG/DL 4.58 MG/DL 3.75 MG/DL Estimat Glomerular Filtration 12 ML/MIN 14 ML/MIN 17 ML/MIN Rate Random Glucose 137 MG/DL 257 MG/DL 187 MG/DL Calcium Level 5.6 MG/DL 6.6 MG/DL 6.3 MG/DL Protein Corrected Calcium 5.3 MG/DL 8.3 MG/DL 7.6 MG/DL Total Bilirubin 1.5 MG/DL 2.3 MG/DL 1.4 MG/DL Direct Bilirubin 1.0 MG/DL Indirect Bilirubin 0.5 MG/DL Aspartate Amino Transf 109 U/L 120 U/L 72 U/L (AST/SGOT) Alanine Aminotransferase 48 U/L 48 U/L 37 U/L (ALT/SGPT) Alkaline Phosphatase 225 U/L 227 U/L 198 U/L Total Protein 4.4 GM/DL 4.0 GM/DL 4.4 GM/DL Albumin 1.5 GM/DL 1.2 GM/DL 1.8 GM/DL Lactic Acid Level 2.7 mmol/L Phosphorus Level 6.7 MG/DL 4.4 MG/DL Magnesium Level 2.2 MG/DL 1.9 MG/DL Microbiology Date/Time Procedure Status Source Growth 12/02/15 10:30 Aerobic Blood Culture - Preliminary Resulted Blood Peripheral Escherichia Coli 12/02/15 10:30 Anaerobic Blood Culture - Preliminary Resulted Gram Negative [place] 12/02/15 10:30 Aerobic Blood Culture - Preliminary Resulted Blood Peripheral Gram Negative [place] 12/02/15 10:30 Anaerobic Blood Culture - Preliminary Resulted Gram Negative [place] 12/02/15 10:30 Urine Culture - Final Complete Urine Clean Catch NO GROWTH IN 48 HOURS. 12/02/15 19:18 Gram Stain - Final Complete Wound Hand 12/02/15 19:18 Wound Culture - Final Complete Staphylococcus Aureus 12/02/15 19:55 Gram Stain - Final Complete Wound Arm 12/02/15 19:55 Wound Culture - Final Complete Staphylococcus Aureus Imaging Last Impressions Chest X-Ray 12/04/15 0600 Signed Impressions: Service Date/Time: Friday, December 04, 2015 03:15 - CONCLUSION: Left basilar opacity is present may be due to a combination of consolidation and or pleural effusion and probable slight worsening of pulmonary edema. Freddy Connor MD Head CT 12/02/15 1013 Signed Impressions: Service Date/Time: Wednesday, December 02, 2015 11:00 - CONCLUSION: 1. No intracranial abnormality is seen. 2. Air-fluid level in the right maxillary sinus. Arnaldo Reyes MD Physical Exam CONSTITUTIONAL/GENERAL: This is an adequately nourished patient, in no apparent distress. SKIN: No jaundice, rashes, multiple small poorly healing lesions. Ecchymoses on upper extremities. Multiple small wounds seen anteriorly on BLE. Skin temperature decreased BLE. Not diaphoretic. HEAD: Atraumatic. Normocephalic. EYES: Pupils equal and round and reactive. Extraocular motions intact. + more prominent scleral icterus, chemosis.Pale conjunctivae No injection or drainage. Fundi not examined. ENT: Nose without bleeding or purulent drainage. Oral without visible erythema, exudates, masses, or lesions. NECK: Trachea midline. Supple, nontender. No palpable thyroid enlargement or nodularity. CARDIOVASCULAR: Regular rate and rhythm without murmurs, gallops, or rubs. No JVD. Peripheral pulses symmetric. RESPIRATORY/CHEST: Symmetric, unlabored respirations. Clear to auscultation. Breath sounds equal bilaterally. No wheezes, rales, or rhonchi. GASTROINTESTINAL: Abdomen soft, no reaction to palpation, moderately distended. No hepato-splenomegaly, or palpable masses. No guarding. Bowel sounds present. incontinent of liquid brown stool GENITOURINARY: Without palpable bladder distension. Sandoval catheter in place with minimal amount of brownish urine MUSCULOSKELETAL: Extremities without clubbing, -no cyanosis, + diffuse 1+ edema. No joint tenderness or effusion noted. no mottling no clubbing. LYMPHATICS: No palpable cervical or supraclavicular adenopathy. NEUROLOGICAL: unresponsive PSYCHIATRIC: unable to assess Assessment & Plan Remarks Septic shoch with MOSF GNR bacteremia -source is unclear - suspect GI source Severe SSTI of RUE, MSSA - sp b/s I+D Immunosuppressed Critically ill & unstable, though somewhat better clincially PCN allergy, but no probs with Keflex -per mom acute VDRF ARF/ DEIRDRE/ATN 2/2 sepsis - improving Abx associated diarrhea - cont cefepime (adjust per renal fnx) - dc vanco (adjust per renal fnx) - dc doxy - cont clindamycin - cont flagyl - stool for C.diff - CT A/P Argelia Palumbo Dr, RN, MD Dec 04, 2015 11:23
[2015-12-04 11:38] LABS: C. DIFF EPI 027 PRESUMPTIVE NEGATIVE (NEGATIVE); C. DIFF TOXIN PCR NEGATIVE (NEGATIVE)
[2015-12-04] MEDS: PROPOFOL 1000 MG/100 ML INJ 100 ML IV SCH (16:00)
--- NOTE | 2015-12-04 16:51 | HHI.CCPN ---
Objective - Vital Signs Date Time Temp Pulse Resp B/P Pulse Ox O2 Delivery O2 Flow Rate FiO2 12/04/15 15:50 98 45 12/04/15 14:00 96 12/04/15 13:00 18 12/04/15 12:00 98.2 101/64 110/58 12/02/15 14:29 Ventilator 12/02/15 11:15 2 Intake and Output 12/03/15 12/03/15 12/04/15 08:00 16:00 00:00 Intake Total 1033 ml 4426 ml 970 ml Output Total 310 ml 1850 ml 700 ml Balance 723 ml 2576 ml 270 ml Result Diagram: 12/04/15 0325 12/04/15 0325 Other Results Laboratory Tests Test 12/02/15 12/02/15 12/02/15 12/02/15 13:15 16:25 18:45 21:10 Blood Gas Puncture Site RT FEMORAL ART LINE ART LINE STACI Blood Gas Patient Temperature 98.6 98.6 98.6 98.6 Blood Gas HCO3 13 mmol/L 13 mmol/L 17 mmol/L 15 mmol/L (22-26) (22-26) (22-26) (22-26) Blood Gas Base Excess -12.4 mmol/L -12.9 mmol/L -6.7 mmol/L -9.1 mmol/L (-2-2) (-2-2) (-2-2) (-2-2) Blood Gas Oxygen Saturation 94 % (90-100) 91 % (90-100) 95 % (90-100) 94 % (90- 100) Arterial Blood pH 7.26 7.28 7.39 7.38 (7.380-7.420) (7.380-7.420) (7.380-7.420) (7.380-7.420) Arterial Blood Partial 31 mmHg (38-42) 27 mmHg (38-42) 29 mmHg (38-42) 26 mmHg ( 38-42) Pressure CO2 Arterial Blood Partial 136 mmHG 75 mmHg 98 mmHg 90 mmHg Pressure O2 (61-120) (61-120) (61-120) (61-120) Arterial Blood Oxygen Content 11.4 Vol % 17.8 Vol % 10.5 Vol % 13.1 Vol % (12.0-20.0) (12.0-20.0) (12.0-20.0) (12.0-20.0) Arterial Blood 0.8 % (0-4) 0.2 % (0-4) 0.6 % (0-4) 0.4 % (0-4) Carboxyhemoglobin Arterial Blood Methemoglobin 3.0 % (0-2) 1.5 % (0-2) 1.6 % (0-2) 1.4 % (0-2) Blood Gas Hemoglobin 8.5 G/DL 13.9 G/DL 7.8 G/DL 9.8 G/DL (12.0-16.0) (12.0-16.0) (12.0-16.0) (12.0-16.0) Oxygen Delivery Device VENTILATOR VENTILATOR VENTILATOR VENTILATOR Blood Gas Ventilator Setting AC/18/550/PEEP5 A/C 550/22/5 PEEP AC22/550/PEEP5 550/22/5PEEP Blood Gas Inspired Oxygen 100 % 65 % 65 % 65 % Test 12/03/15 12/03/15 12/03/15 00:15 04:16 07:59 Blood Gas Puncture Site STACI ART LINE ART LINE Blood Gas Patient Temperature 98.6 98.6 98.6 Blood Gas HCO3 16 mmol/L 18 mmol/L 16 mmol/L (22-26) (22-26) (22-26) Blood Gas Base Excess -7.7 mmol/L -6.4 mmol/L -8.7 mmol/L (-2-2) (-2-2) (-2-2) Blood Gas Oxygen Saturation 96 % (90-100) 96 % (90-100) 96 % (90-100) Arterial Blood pH 7.40 7.41 7.33 (7.380-7.420) (7.380-7.420) (7.380-7.420) Arterial Blood Partial 27 mmHg (38-42) 29 mmHg (38-42) 32 mmHg (38-42) Pressure CO2 Arterial Blood Partial 137 mmHg 125 mmHg 134 mmHg Pressure O2 (61-120) (61-120) (61-120) Arterial Blood Oxygen Content 14.1 Vol % 13.0 Vol % 11.3 Vol % (12.0-20.0) (12.0-20.0) (12.0-20.0) Arterial Blood 0.5 % (0-4) 0.6 % (0-4) 0.6 % (0-4) Carboxyhemoglobin Arterial Blood Methemoglobin 1.6 % (0-2) 1.5 % (0-2) 1.6 % (0-2) Blood Gas Hemoglobin 10.3 G/DL 9.5 G/DL 8.2 G/DL (12.0-16.0) (12.0-16.0) (12.0-16.0) Oxygen Delivery Device VENTILATOR VENTILATOR VENTILATOR Blood Gas Ventilator Setting AC22/550/PEEP5 AC22/550/5PEEP/60% AC18/550/5PEEP Blood Gas Inspired Oxygen 60 % 60 % 60 % Objective Remarks GENERAL: Sedated, Intubated sick appearing male SKIN: Cold and Pale. Generalized anasarca. Multiple open wounds in the lower extremity. Right upper extremity is edematous than the left with a large necrotic hemorrhagic blister on the dorsum of the hand and surrounding skin and palmar erythema HEAD: Atraumatic. Normocephalic. EYES: Pupils equal and round. No scleral icterus. No injection or drainage. ENT: No nasal bleeding or discharge. Extremely dry and quantity mucous membrane and lips NECK: Trachea midline. No JVD. CARDIOVASCULAR: Regular rate and rhythm. No murmur appreciated. RESPIRATORY: No accessory muscle use. Clear to auscultation. Breath sounds equal bilaterally. GASTROINTESTINAL: Abdomen soft, non-tender, nondistended. Hepatic and splenic margins not palpable. MUSCULOSKELETAL: No obvious deformities. No clubbing. No cyanosis. 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 fluid administration - vigileo - CL - a.line - Levophed PRN to keep MAP > 65, D/C Vasopressin Respiratory - Acute respiratory failure - intubated for airway protection - AC/PC - ABG/CXR daily - no weaning until hemodynamically stable and neurologically improved ID - Severe sepsis - Necrotizing Fascitis - Staph Aureus - Debridement 12/01 p.m by hand surgery - E Coli - bacteriemia - CT abdomen today - ATB - ID consult appreciated Renal - metabolic acidosis - DEIRDRE - aggressive i.v. hydration - sodium bicarb gtt - strict I&O - electrolyte replacement per ICU protocol GI - TF when No OR planned - GI prophylaxis Hem - monitor CBS and H&H Endo - ISS DVT/GI prophylaxis - Lovenox -D/C due DEIRDRE, start subQ heparin, Pepcid Critical Care: The total critical care time was 35 minutes. Time to perform other separately billable procedures was not included in the critical care time. Problem Qualifiers (1) Altered mental status: Qualified Code: R41.0 - Delirium (2) Sepsis: Qualified Code: A41.9 - Sepsis, due to unspecified organism (3) Respiratory failure: Qualified Code: J96.00 - Acute respiratory failure, unspecified whether with hypoxia or hypercapnia Chalino Mac MD Dec 04, 2015 16:51
--- NOTE | 2015-12-04 17:40 | RADRPT ---
EXAM DATE/TIME: 12/04/2015 16:24 [facility] COMPARISON: CT ABDOMEN & PELVIS W CONTRAST, August 26, 2014, 7:31. INDICATIONS : Abdominal distension. ORAL CONTRAST: Prescribed oral contrast ingested. RADIATION DOSE: 16.35 CTDIvol (mGy) MEDICAL HISTORY : Cardiovascular disease. Hypertension. Hepatitis C. SURGICAL HISTORY : None. ENCOUNTER: Initial ACUITY: 1 day PAIN SCALE: Non-responsive LOCATION: Abdomen/pelvis TECHNIQUE: Volumetric scanning of the abdomen and pelvis was performed. Using automated exposure control and adjustment of the mA and/or kV according to patient size, radiation dose was kept as low as reasonably achievable to obtain optimal diagnostic quality images. FINDINGS: The liver appears grossly normal. There is some high density material within the gallb ladder which may represent sludge or noncalcified stones. The spleen appears small and lobulated. Th e patient may have had a splenic injury and this is a prominent splenule. The pancreas and adrenal glands are normal. Both kidneys demonstrate small nonobstructing stones measuring up to 4 mm. No hyd ronephrosis or hydroureter is seen. The patient has an NG tube in place. There is some mildly distended small bowel seen in the mid and lower abdomen. A definite transition point is not seen. Contrast is seen within the distal small thien wel and the ascending colon. There is a mild amount of ascites seen throughout the peritoneal cavity . The pelvic structures appear grossly intact. The patient does have a Sandoval catheter in place and a rectal tube in place. There are mild bilateral pleural effusions and accompanying areas of atelectasis or consolidation at the posterior lung bases. There are old posterior rib fractures seen bilaterally. The patient does a ppear to have compressive change at the superior aspects of T12, L1, the left side of L3 and the left side of L4. The age of these deformities is not known. The patient has surgical screws through the left proximal femur. There is edema seen in the subcutaneous tissues at the lateral abdomen and pelv is. CONCLUSION: 1. Mildly distended small bowel in the mid and lower abdomen. Contrast is clearly seen extending int o the distal small bowel and ascending colon so a complete obstruction is not seen. A transition poi nt is not seen. This pattern likely represents an ileus versus a partial obstruction. 2. Multiple nonobstructing renal stones. 3. Abnormal appearance of the spleen which appears to represent a splenule. It could be correlated i f the patient has had either primary splenic removal or splenic injury and this is what is either lef t of the spleen or a developing splenule. This is likely of no significance. 4. Mild ascites. 5. Increased density within the gallbladder representing either tumefactive sludge or noncalcified st ones. 6. Mild bilateral pleural effusions with prominent areas of lower lobe atelectasis or consolidation a t the bases bilaterally. 7. Subacute to chronic bilateral rib fractures and multiple compression fractures in the lower thorac ic and lumbar spine as described above. The patient does have a prior CT examination from 08/26/2014. All the compression deformities described above are new when compared to that scan. Arnaldo Reyes MD on December 04, 2015 at 17:10 Board Certified Radiologist. This report was verified electronically.
[2015-12-04] MEDS: CEFEPIME INJ 2,000 MG in SODIUM CHLORIDE 0.9% INJ 100 ML IV SCH (20:24)
--- NOTE | 2015-12-04 22:40 | MP ---
cc: KECIA ROCHA DATE OF SURGERY 12/02/2015 PREOPERATIVE DIAGNOSIS Right upper extremity necrotizing skin infection. POSTOPERATIVE DIAGNOSIS Right upper extremity necrotizing skin infection. PROCEDURE Sharp excisional debridement of right upper extremity skin, subcutaneous tissue and fascia and muscle of the dorsal part of the hand and the forearm up to the elbow, total incision length the 30 cm, total excision of the dorsal part of the hand of necrotizing infection is 8 cm x 8 cm. ANESTHESIA At the bedside Versed and fentanyl ATTENDING SURGEON Yg Rocha MD [employer] Dr. Pedro of hand surgery. ESTIMATED BLOOD LOSS 25 mL COMPLICATIONS None. FINDINGS All necrotizing skin and soft tissue and fascia are removed grossly, debrided back to good bleeding tissue with some infected hemorrhage and hematoma of the dorsum of the hand and extensor compartment. INDICATIONS FOR PROCEDURE The patient is a 55-year-old male with sepsis and right upper extremity necrotizing skin infection, required urgent debridement. PROCEDURE IN DETAIL After informed consent was obtained from the family for the procedure, the patient underwent sedation at the bedside. The patient's right upper extremity was prepped and draped in sterile fashion. Time-out was performed. Dr. Pedro and myself were scrubbed in gowns at the bedside in Intensive Care Unit. We did explore the hand. We did sharply debride all necrotizing skin and soft tissue which revealed some hematoma on extensor compartment the hand and forearm. We extended incision along the ulnar aspect all the way down to the bursa and opened up some purulent material and some almost like infected hematoma. We did debride skin and soft tissue and muscle and fascia back to the good bleeding tissue, although the bleeding was not brisk as the patient was likely on pressors and septic but no frankly necrotic tissue was left behind. The total area of the incision was 8 x 8 cm on the dorsum of the hand and the total incision along the ulnar aspect was approximately 30 cm. We had good hemostasis with the Bovie electrocautery. We then turned our attention to closure. We did pack with Betadine gauze. The wound, completely wrapped it with no Kerlix gauze and elevated the hand on a sling. The patient tolerated procedure well. There were no apparent complications. All counts were correct and myself and Dr. Pedro were present and scrubbed for the entire above procedure. MD GALI Staley/ /8:29 PM /10:26 PM SANDRA
[2015-12-05] VITALS (17 sets, daily range): BP systolic 96–175; BP diastolic 52–88; PULSE 97–137; RESP 18–24; TEMP 98.6–99; O2SAT 96–99
[2015-12-05] MEDS: oxyCODONE HCL ORAL CONC 20 MG/ML SYRINGE PO SCH ×6 (02:29→20:21)
[2015-12-05] MEDS: ALBUMIN HUMAN 5% 25 GM/500 ML BOTTLE IV SCH ×3 (02:30→23:37)
[2015-12-05] MEDS: metroNIDAZOLE 500 MG INJ 100 ML IV SCH ×2 (02:30→09:05)
[2015-12-05] MEDS: CHLORHEXIDINE GLUCONATE 2 % 1 PACK (2 CLOTHS) TOP SCH (04:00)
[2015-12-05] MEDS: RESP: ALBUTEROL 2.5 MG/IPRATROPIUM 0.5 MG NEB (SCH) INH ×4 (04:02→20:31)
[2015-12-05 04:20] LABS: BLOOD GAS BASE EXCESS 4.4 mmol/L (-2-2); BLOOD GAS HCO3 28 mmol/L (22-26); BLOOD GAS METHEMOGLOBIN 0.9 % (0-2); BLOOD GAS O2 HGB SATURATION 95 % (90-100); BLOOD GAS PCO2 38 mmHg (38-42); BLOOD GAS PO2 107 mmHg (61-120); BLOOD GAS TOTAL HGB 7.4 G/DL (12.0-16.0); CRITICAL VALUE NO; OXYGEN DEVICE VENTILATOR; TEMP CORR TO 98.6
[2015-12-05 04:21] LABS: DRAW SITE ALINE; FIO2 45 %; STAT NO; VENT SETTINGS AC/18/550/PEEP5
[2015-12-05] MEDS: SODIUM BICARBONATE 8.4% INJ 100 MEQ in DEXTROSE 5% IN WATE 1000ML INJ 1,000 ML IV SCH ×6 (04:42→22:01)
[2015-12-05] MEDS: DOXYCYCLINE INJ 100 MG in SODIUM CHLORIDE 0.9% INJ 100 ML IV SCH (04:46)
[2015-12-05] MEDS: CLINDAMYCIN INJ 900 MG in SODIUM CHLORIDE 0.9% INJ 100 ML IV SCH ×2 (04:46→11:44)
[2015-12-05] MEDS: HEPARIN SODIUM - SQ 10,000 UNITS/ML VIAL SQ SCH ×3 (04:46→20:22)
[2015-12-05] MEDS: ACETAMINOPHEN 650 MG/20.3 ML UDC PO SCH ×4 (04:46→22:02)
[2015-12-05 04:53] LABS: AUTOMATED NEUTROPHIL # 9.5 TH/MM3 (1.8-7.7); BASOPHIL % 0.2 % (0.0-2.0); EOSINOPHIL # 0.1 TH/MM3 (0-0.4); EOSINOPHIL % 0.5 % (0.0-4.0); HEMATOCRIT 21.7 % (39.0-51.0); LYMPH % 9.6 % (9.0-44.0); MEAN CELL VOLUME 91.6 FL (80.0-100.0); MEAN CORPUSCULAR HEMOGLOBIN 32.7 PG (27.0-34.0); MEAN CORPUSCULAR HGB CONC 35.6 % (32.0-36.0); MONO % 0.9 % (0.0-8.0); NEUT % 88.8 % (16.0-70.0); PLATELET COUNT 33 TH/MM3 (150-450); RED BLOOD COUNT 2.37 MIL/MM3 (4.50-5.90); RED CELL DISTRIBUTION WIDTH 17.1 % (11.6-17.2); WHITE BLOOD COUNT 10.7 TH/MM3 (4.0-11.0)
[2015-12-05 04:59] LABS: HEMO FLAGS AUTO DIFF
--- NOTE | 2015-12-05 05:23 | RADRPT ---
EXAM DATE/TIME: 12/05/2015 03:52 [facility] COMPARISON: CHEST SINGLE AP, December 04, 2015, 3:15. INDICATIONS : Short of Breath MEDICAL HISTORY : Hypertension. SURGICAL HISTORY : None. ENCOUNTER: Subsequent ACUITY: 4 - 6 days PAIN SCORE: Non-responsive. LOCATION: Bilateral chest FINDINGS: Left basilar opacity is present may be due to a combination of consolidation and or pleural effusion. Lines and tubes are present not significantly changed. Mild right lung base atelectasis and/or infil trate is seen. Slight degree of pulmonary edema is also suspected not significantly changed. CONCLUSION: No appreciable change. Freddy Connor MD on December 05, 2015 at 5:17 Board Certified Radiologist. This report was verified electronically.
[2015-12-05 06:23] LABS: ALKALINE PHOSPHATASE 195 U/L (45-117); ALT (GPT) 37 U/L (12-78); ANION GAP 13 MEQ/L (5-15); AST (GOT) 68 U/L (15-37); BICARBONATE 29.3 MEQ/L (21.0-32.0); BLOOD UREA NITROGEN 77 MG/DL (7-18); CHLORIDE 95 MEQ/L (98-107); GLOMERULAR FILTRATION RATE 23 ML/MIN (>89); MAGNESIUM 1.5 MG/DL (1.5-2.5); SODIUM (NA) 137 MEQ/L (136-145); TOTAL BILIRUBIN ADULT 2.5 MG/DL (0.2-1.0)
[2015-12-05 06:27] LABS: POTASSIUM 2.6 MEQ/L (3.5-5.1)
[2015-12-05] MEDS: NOREPINEPHRINE-DEXTROSE DRIP 250 ML IV SCH ×3 (07:28→20:21)
[2015-12-05] MEDS: MAGNESIUM SULFATE 1 GM PREMIX 100 ML IV SCH ×2 (09:04→11:57)
[2015-12-05] MEDS: POTASSIUM CL 40 MEQ/30 ML LIQ UDC NG SCH ×3 (09:04→20:21)
[2015-12-05 09:09] LABS: BANDS 16 % (0-6); CORRECTED NUCLEATED RBC 1 /100 WBC (0-0); EOSINOPHILS 1 % (0-4); NEUTROPHIL # MANUAL DIFF 9.7 TH/MM3 (1.8-7.7); PLATELET ESTIMATE SMEAR LOW (NORMAL); PLATELET MORPHOLOGY NORMAL (NORMAL); POLYS (SEG NEUTROPHILS) 75 % (16-70); SCAN/DIFF FINAL DIFF MANUAL; TARGET CELLS 1+ (NORMAL); WBC DIFF SAMPLE 100
[2015-12-05] MEDS: PROPOFOL 1000 MG/100 ML INJ 100 ML IV SCH (11:44)
[2015-12-05] MEDS: VASOPRESSIN INJ 40 UNITS in DEXTROSE 5% IN WATER 100ML INJ 98 ML IV SCH ×4 (11:44→23:37)
--- NOTE | 2015-12-05 12:00 | HHI.CCPN ---
Subjective Remarks/Hospital Course 55-year-old male brought by EMS with altered mental status. He has been confused for 2 days but this morning has been the worst. He has history of chronic opiate medications including methadone and morphine that he takes for pain management and hence they gave him Narcan IV which brought the GCS up to 13. The blood glucose was 74. He has open wounds from his right upper and bilateral lower extremities. He has history of hepatitis C. Last week he was pealing and eating shrimps. Bedside blood sugar was 76 in the ER. He was tachycardic in 1 teens and was intubated in the ED for airway protection. Admitted to ICU with sepsis due to Staph Aureus hand infection and E. Coli bacteriemia. Objective - Vital Signs Date Time Temp Pulse Resp B/P Pulse Ox O2 Delivery O2 Flow Rate FiO2 12/05/15 10:15 18 12/05/15 06:00 98 12/05/15 04:02 97 45 12/05/15 04:00 98.8 139/73 175/80 12/02/15 14:29 Ventilator 12/02/15 11:15 2 Intake and Output 12/04/15 12/04/15 12/05/15 08:00 16:00 00:00 Intake Total 1786 ml 2932 ml 702 ml Output Total 1000 ml 900 ml 1150 ml Balance 786 ml 2032 ml -448 ml Result Diagram: 12/05/15 0430 12/05/15 0430 Other Results Laboratory Tests Test 12/02/15 12/02/15 12/02/15 12/02/15 13:15 16:25 18:45 21:10 Blood Gas Puncture Site RT FEMORAL ART LINE ART LINE STACI Blood Gas Patient Temperature 98.6 98.6 98.6 98.6 Blood Gas HCO3 13 mmol/L 13 mmol/L 17 mmol/L 15 mmol/L (22-26) (22-26) (22-26) (22-26) Blood Gas Base Excess -12.4 mmol/L -12.9 mmol/L -6.7 mmol/L -9.1 mmol/L (-2-2) (-2-2) (-2-2) (-2-2) Blood Gas Oxygen Saturation 94 % (90-100) 91 % (90-100) 95 % (90-100) 94 % (90- 100) Arterial Blood pH 7.26 7.28 7.39 7.38 (7.380-7.420) (7.380-7.420) (7.380-7.420) (7.380-7.420) Arterial Blood Partial 31 mmHg (38-42) 27 mmHg (38-42) 29 mmHg (38-42) 26 mmHg ( 38-42) Pressure CO2 Arterial Blood Partial 136 mmHG 75 mmHg 98 mmHg 90 mmHg Pressure O2 (61-120) (61-120) (61-120) (61-120) Arterial Blood Oxygen Content 11.4 Vol % 17.8 Vol % 10.5 Vol % 13.1 Vol % (12.0-20.0) (12.0-20.0) (12.0-20.0) (12.0-20.0) Arterial Blood 0.8 % (0-4) 0.2 % (0-4) 0.6 % (0-4) 0.4 % (0-4) Carboxyhemoglobin Arterial Blood Methemoglobin 3.0 % (0-2) 1.5 % (0-2) 1.6 % (0-2) 1.4 % (0-2) Blood Gas Hemoglobin 8.5 G/DL 13.9 G/DL 7.8 G/DL 9.8 G/DL (12.0-16.0) (12.0-16.0) (12.0-16.0) (12.0-16.0) Oxygen Delivery Device VENTILATOR VENTILATOR VENTILATOR VENTILATOR Blood Gas Ventilator Setting AC/18/550/PEEP5 A/C 550/22/5 PEEP AC22/550/PEEP5 550/22/5PEEP Blood Gas Inspired Oxygen 100 % 65 % 65 % 65 % Test 12/03/15 12/03/15 12/03/15 00:15 04:16 07:59 Blood Gas Puncture Site STACI ART LINE ART LINE Blood Gas Patient Temperature 98.6 98.6 98.6 Blood Gas HCO3 16 mmol/L 18 mmol/L 16 mmol/L (22-26) (22-26) (22-26) Blood Gas Base Excess -7.7 mmol/L -6.4 mmol/L -8.7 mmol/L (-2-2) (-2-2) (-2-2) Blood Gas Oxygen Saturation 96 % (90-100) 96 % (90-100) 96 % (90-100) Arterial Blood pH 7.40 7.41 7.33 (7.380-7.420) (7.380-7.420) (7.380-7.420) Arterial Blood Partial 27 mmHg (38-42) 29 mmHg (38-42) 32 mmHg (38-42) Pressure CO2 Arterial Blood Partial 137 mmHg 125 mmHg 134 mmHg Pressure O2 (61-120) (61-120) (61-120) Arterial Blood Oxygen Content 14.1 Vol % 13.0 Vol % 11.3 Vol % (12.0-20.0) (12.0-20.0) (12.0-20.0) Arterial Blood 0.5 % (0-4) 0.6 % (0-4) 0.6 % (0-4) Carboxyhemoglobin Arterial Blood Methemoglobin 1.6 % (0-2) 1.5 % (0-2) 1.6 % (0-2) Blood Gas Hemoglobin 10.3 G/DL 9.5 G/DL 8.2 G/DL (12.0-16.0) (12.0-16.0) (12.0-16.0) Oxygen Delivery Device VENTILATOR VENTILATOR VENTILATOR Blood Gas Ventilator Setting AC22/550/PEEP5 AC22/550/5PEEP/60% AC18/550/5PEEP Blood Gas Inspired Oxygen 60 % 60 % 60 % Objective Remarks GENERAL: Sedated, Intubated sick appearing male SKIN: Cold and Pale. Generalized anasarca. Multiple open wounds in the lower extremity. Right upper extremity is edematous than the left with a large necrotic hemorrhagic blister on the dorsum of the hand and surrounding skin and palmar erythema HEAD: Atraumatic. Normocephalic. EYES: Pupils equal and round. No scleral icterus. No injection or drainage. ENT: No nasal bleeding or discharge. Extremely dry and quantity mucous membrane and lips NECK: Trachea midline. No JVD. CARDIOVASCULAR: Regular rate and rhythm. No murmur appreciated. RESPIRATORY: No accessory muscle use. Clear to auscultation. Breath sounds equal bilaterally. GASTROINTESTINAL: Abdomen soft, non-tender, nondistended. Hepatic and splenic margins not palpable. MUSCULOSKELETAL: No obvious deformities. No clubbing. No cyanosis. 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 fluid resuscitation - vigileo - CL - A.line - Levophed PRN to keep MAP > 65, D/C Vasopressin Respiratory - Acute respiratory failure - intubated for airway protection - AC/PC - ABG/CXR daily - no weaning until hemodynamically stable and neurologically improved ID - Severe sepsis - Necrotizing Fascitis - Staph Aureus - Debridement 12/01 p.m by hand surgery - E Coli - bacteriemia - CT abdomen today - ATB - ID consult appreciated Renal - metabolic acidosis - DEIRDRE - aggressive i.v. hydration - sodium bicarb gtt - strict I&O - electrolyte replacement per ICU protocol GI - TF as tolerated - GI prophylaxis Hem - monitor CBS and H&H Endo - ISS DVT/GI prophylaxis - Lovenox -D/C due DEIRDRE, subQ heparin, Pepcid Critical Care: The total critical care time was 35 minutes. Time to perform other separately billable procedures was not included in the critical care time. Problem Qualifiers (1) Altered mental status: Qualified Code: R41.0 - Delirium (2) Sepsis: Qualified Code: A41.9 - Sepsis, due to unspecified organism (3) Respiratory failure: Qualified Code: J96.00 - Acute respiratory failure, unspecified whether with hypoxia or hypercapnia Chalino Mac MD Dec 05, 2015 12:00
--- NOTE | 2015-12-05 12:24 | HHI.IDPN ---
Subjective Subjective Remarks remians on 7-9 mics of Levaphed andoff vasopressin Blood clx with E.coli 4/4 Hnad and elbow growing MSSA + large volume liquid diarrhea UOP good CT A/P with part SBO vs ileus started on TF tolerating @ 20 cc Antibiotics cefepime doxy clinda vanco flagyl Past Medical History RA HCV sp splenectomy Allergies: Coded Allergies: Compazine (Verified Allergy, Severe, VOMITING, RASH, 08/26/14) SLURRED SPEECH, MIGRAINES Demerol (Verified Allergy, Severe, VOMITING, 08/26/14) Levaquin (Verified Allergy, Severe, 08/26/14) Penicillin (Verified Allergy, Severe, Rash, 08/26/14) Phenergan (Verified Allergy, Severe, VOMITING, 08/26/14) Uncoded Allergies: ANTI-CONVULSIVES (Allergy, Severe, MIGRAINES, SLURRED SPEECH,, 01/23/14) Objective . Vital Signs Date Time Temp Pulse Resp B/P Pulse Ox O2 Delivery O2 Flow Rate FiO2 12/05/15 10:15 18 12/05/15 06:00 98 12/05/15 05:49 19 12/05/15 04:02 97 45 12/05/15 04:00 112 12/05/15 04:00 98.8 112 20 139/73 96 175/80 12/05/15 04:00 112 139/73 143/65 12/05/15 04:00 45 12/05/15 02:00 100 12/05/15 00:00 98.7 121 21 152/88 96 175/80 12/05/15 00:00 121 152/88 175/80 12/05/15 00:00 121 12/05/15 00:00 45 12/04/15 23:58 94 45 12/04/15 22:00 105 12/04/15 20:22 98 45 12/04/15 20:00 106 12/04/15 20:00 98.6 106 19 130/79 98 156/73 12/04/15 20:00 106 130/79 156/73 12/04/15 20:00 45 12/04/15 18:00 94 12/04/15 18:00 95/51 90/53 12/04/15 16:49 97 50 12/04/15 16:00 45 12/04/15 16:00 95/51 139/83 12/04/15 16:00 117 12/04/15 16:00 98.7 117 19 139/83 99 12/04/15 15:50 98 45 12/04/15 14:00 96 12/04/15 12/04/15 12/05/15 15:00 23:00 07:00 Intake Total 2932 ml 702 ml 1903 ml Output Total 900 ml 1150 ml 675 ml Balance 2032 ml -448 ml 1228 ml Intake Oral 0 ml 0 ml IV Total 2932 ml 702 ml 1203 ml Albumin 500 ml Other 200 ml Output Urine Total 900 ml 500 ml 575 ml Stool Total 650 ml 100 ml Gastric Drainage Total 0 ml 0 ml # Bowel Movements 1 . Laboratory Tests Test 12/04/15 12/05/15 03:25 04:30 White Blood Count 13.4 TH/MM3 10.7 TH/MM3 Red Blood Count 2.38 MIL/MM3 2.37 MIL/MM3 Hemoglobin 7.4 GM/DL 7.8 GM/DL Hematocrit 22.3 % 21.7 % Mean Corpuscular Volume 93.4 FL 91.6 FL Mean Corpuscular Hemoglobin 31.2 PG 32.7 PG Mean Corpuscular Hemoglobin 33.4 % 35.6 % Concent Red Cell Distribution Width 17.4 % 17.1 % Platelet Count 59 TH/MM3 33 TH/MM3 Mean Platelet Volume 8.6 FL 9.8 FL Neutrophils (%) (Auto) 91.9 % 88.8 % Lymphocytes (%) (Auto) 6.2 % 9.6 % Monocytes (%) (Auto) 0.6 % 0.9 % Eosinophils (%) (Auto) 1.0 % 0.5 % Basophils (%) (Auto) 0.3 % 0.2 % Neutrophils # (Auto) 12.3 TH/MM3 9.5 TH/MM3 Lymphocytes # (Auto) 0.8 TH/MM3 1.0 TH/MM3 Monocytes # (Auto) 0.1 TH/MM3 0.1 TH/MM3 Eosinophils # (Auto) 0.1 TH/MM3 0.1 TH/MM3 Basophils # (Auto) 0.0 TH/MM3 0.0 TH/MM3 CBC Comment AUTO DIFF AUTO DIFF Differential Comment AUTO DIFF FINAL DIFF CONFIRMED MANUAL Platelet Estimate LOW LOW Platelet Morphology Comment NORMAL NORMAL Ovalocytes 2+ Differential Total Cells 100 Counted Neutrophils % (Manual) 75 % Band Neutrophils % 16 % Lymphocytes % 7 % Monocytes % 1 % Eosinophils % 1 % Neutrophils # (Manual) 9.7 TH/MM3 Nucleated Red Blood Cells 1 /100 WBC Target Cells 1+ Laboratory Tests Test 12/04/15 12/05/15 03:25 04:30 Sodium Level 140 MEQ/L 137 MEQ/L Potassium Level 3.3 MEQ/L 2.6 MEQ/L Chloride Level 101 MEQ/L 95 MEQ/L Carbon Dioxide Level 24.5 MEQ/L 29.3 MEQ/L Anion Gap 15 MEQ/L 13 MEQ/L Blood Urea Nitrogen 97 MG/DL 77 MG/DL Creatinine 3.75 MG/DL 2.86 MG/DL Estimat Glomerular Filtration 17 ML/MIN 23 ML/MIN Rate Random Glucose 187 MG/DL 104 MG/DL Calcium Level 6.3 MG/DL 7.6 MG/DL Protein Corrected Calcium 7.6 MG/DL Phosphorus Level 4.4 MG/DL 3.1 MG/DL Magnesium Level 1.9 MG/DL 1.5 MG/DL Total Bilirubin 1.4 MG/DL 2.5 MG/DL Aspartate Amino Transf 72 U/L 68 U/L (AST/SGOT) Alanine Aminotransferase 37 U/L 37 U/L (ALT/SGPT) Alkaline Phosphatase 198 U/L 195 U/L Total Protein 4.4 GM/DL 4.7 GM/DL Albumin 1.8 GM/DL 2.3 GM/DL Microbiology Date/Time Procedure Status Source Growth 12/02/15 19:18 Gram Stain - Final Complete Wound Hand 12/02/15 19:18 Wound Culture - Final Complete Staphylococcus Aureus 12/02/15 19:55 Gram Stain - Final Complete Wound Arm 12/02/15 19:55 Wound Culture - Final Complete Staphylococcus Aureus Imaging Last Impressions Chest X-Ray 12/05/15 0600 Signed Impressions: Service Date/Time: Saturday, December 05, 2015 03:52 - CONCLUSION: No appreciable change. Freddy Connor MD Abdomen/Pelvis CT 12/04/15 0000 Signed Impressions: Service Date/Time: Friday, December 04, 2015 16:24 - CONCLUSION: 1. Mildly distended small bowel in the mid and lower abdomen. Contrast is clearly seen extending into the distal small bowel and ascending colon so a complete obstruction is not seen. A transition point is not seen. This pattern likely represents an ileus versus a partial obstruction. 2. Multiple nonobstructing renal stones. 3. Abnormal appearance of the spleen which appears to represent a splenule. It could be correlated if the patient has had either primary splenic removal or splenic injury and this is what is either left of the spleen or a developing splenule. This is likely of no significance. 4. Mild ascites. 5. Increased density within the gallbladder representing either tumefactive sludge or noncalcified stones. 6. Mild bilateral pleural effusions with prominent areas of lower lobe atelectasis or consolidation at the bases bilaterally. 7. Subacute to chronic bilateral rib fractures and multiple compression fractures in the lower thoracic and lumbar spine as described above. The patient does have a prior CT examination from 08/26/2014. All the compression deformities described above are new when compared to that scan. Arnaldo Reyes MD Head CT 12/02/15 1013 Signed Impressions: Service Date/Time: Wednesday, December 02, 2015 11:00 - CONCLUSION: 1. No intracranial abnormality is seen. 2. Air-fluid level in the right maxillary sinus. Arnaldo Reyes MD Physical Exam CONSTITUTIONAL/GENERAL: This is an adequately nourished patient, in no apparent distress. SKIN: No jaundice, rashes, multiple small poorly healing lesions. Ecchymoses on upper extremities. Multiple small wounds seen anteriorly on BLE. Skin temperature decreased BLE. Not diaphoretic. HEAD: Atraumatic. Normocephalic. EYES: Pupils equal and round and reactive. Extraocular motions intact. + more prominent scleral icterus, chemosis.Pale conjunctivae No injection or drainage. Fundi not examined. ENT: Nose without bleeding or purulent drainage. Oral without visible erythema, exudates, masses, or lesions. NECK: Trachea midline. Supple, nontender. No palpable thyroid enlargement or nodularity. CARDIOVASCULAR: Regular rate and rhythm without murmurs, gallops, or rubs. No JVD. Peripheral pulses symmetric. RESPIRATORY/CHEST: Symmetric, unlabored respirations. Clear to auscultation. Breath sounds equal bilaterally. No wheezes, rales, or rhonchi. GASTROINTESTINAL: Abdomen soft, no reaction to palpation, moderately to severely distended. No hepato-splenomegaly, or palpable masses. No guarding. Bowel sounds present. incontinent of liquid brown stool GENITOURINARY: Without palpable bladder distension. Sandoval catheter in place with minimal amount of brownish urine MUSCULOSKELETAL: Extremities without clubbing, -no cyanosis, + diffuse 2+ edema. No joint tenderness or effusion noted. no mottling no clubbing. well perfused RUE in sling - diminishing edema and erythema, dressing with serosang staining LYMPHATICS: No palpable cervical or supraclavicular adenopathy. NEUROLOGICAL: heavily sedated, reacts to touch PSYCHIATRIC: unable to assess Assessment & Plan Remarks Septic shoch with MOSF E.coli bacteremia -source is unclear - suspect GI source Severe SSTI of RUE, MSSA - sp b/s I+D Immunosuppressed Critically ill & unstable, though somewhat better clincially PCN allergy, but no probs with Keflex -per mom acute VDRF ARF/ DEIRDRE/ATN 2/2 sepsis - improving Abx associated diarrhea, C.diff negative - change cefepime to CFTX - dc vanco (adjust per renal fnx) - dc doxy - cont clindamycin for now, can be switched to po - dc Argelia Watson Dr, RN, MD Dec 05, 2015 12:24
[2015-12-05] MEDS ORDERED: cefTRIAXone INJ 2,000 MG in SODIUM CHLORIDE 0.9% INJ 100 ML IV SCH (13:00)
[2015-12-05] MEDS: CLINDAMYCIN 150 MG CAP PO SCH ×2 (16:40→23:38)
[2015-12-05 17:24] LABS: HEPARIN AB OD 0.008 O.D. (0.000-0.300); HEPARIN INDUCED PLATELET AB NEGATIVE (NEGATIVE)
[2015-12-05] MEDS: cefTRIAXone INJ 2,000 MG in SODIUM CHLORIDE 0.9% INJ 100 ML IV SCH (18:04)
[2015-12-05] MEDS ORDERED: MIDAZOLAM 100 MG/NS 100 ML DRIP Premix IV SCH (21:45)
[2015-12-05] MEDS ORDERED: DEXTROSE 50% IN WATER 50 ML VIAL(D50) IV PUSH PRN (22:00)
[2015-12-05] MEDS ORDERED: GLUCAGON 1 MG/ML VIAL OTHER PRN (22:00)
[2015-12-05] MEDS: fentaNYL 2,500 MCG/NS 250 ML IV SCH (22:00)
[2015-12-05] MEDS: MEDIUM DOSE INSULIN NOVOLIN REGULAR SUPPLEMENTAL SCALE SQ SCH (22:01)
[2015-12-06] VITALS (23 sets, daily range): BP systolic 83–127; BP diastolic 48–71; PULSE 105–143; RESP 14–21; TEMP 98–99.8; O2SAT 95–100
[2015-12-06] MEDS: oxyCODONE HCL ORAL CONC 20 MG/ML SYRINGE PO SCH ×3 (02:46→07:57)
[2015-12-06] MEDS: POTASSIUM CL 40 MEQ/30 ML LIQ UDC NG SCH (02:46)
[2015-12-06] MEDS: MEDIUM DOSE INSULIN NOVOLIN REGULAR SUPPLEMENTAL SCALE SQ SCH ×6 (02:47→22:00)
[2015-12-06] MEDS: CHLORHEXIDINE GLUCONATE 2 % 1 PACK (2 CLOTHS) TOP SCH (02:47)
[2015-12-06] MEDS: RESP: ALBUTEROL 2.5 MG/IPRATROPIUM 0.5 MG NEB (SCH) INH ×5 (04:10→20:39)
[2015-12-06 04:17] LABS: ALT (GPT) 28 U/L (12-78); ANION GAP 12 MEQ/L (5-15); AST (GOT) 46 U/L (15-37); BLOOD UREA NITROGEN 70 MG/DL (7-18); CHLORIDE 95 MEQ/L (98-107); GLOMERULAR FILTRATION RATE 25 ML/MIN (>89); MAGNESIUM 1.8 MG/DL (1.5-2.5); POTASSIUM 3.1 MEQ/L (3.5-5.1); SODIUM (NA) 135 MEQ/L (136-145)
[2015-12-06 04:19] LABS: ALKALINE PHOSPHATASE 198 U/L (45-117); TOTAL BILIRUBIN ADULT 4.2 MG/DL (0.2-1.0)
[2015-12-06 04:23] LABS: AUTOMATED NEUTROPHIL # 7.1 TH/MM3 (1.8-7.7); BASOPHIL % 0.6 % (0.0-2.0); EOSINOPHIL % 0.5 % (0.0-4.0); HEMATOCRIT 22.9 % (39.0-51.0); LYMPH % 11.6 % (9.0-44.0); LYMPHOCYTE # 0.9 TH/MM3 (1.0-4.8); MEAN CELL VOLUME 93.1 FL (80.0-100.0); MEAN CORPUSCULAR HEMOGLOBIN 31.8 PG (27.0-34.0); MEAN CORPUSCULAR HGB CONC 34.2 % (32.0-36.0); MONO % 0.8 % (0.0-8.0); NEUT % 86.5 % (16.0-70.0); PLATELET COUNT 20 TH/MM3 (150-450); RED BLOOD COUNT 2.46 MIL/MM3 (4.50-5.90); RED CELL DISTRIBUTION WIDTH 16.9 % (11.6-17.2); WHITE BLOOD COUNT 8.2 TH/MM3 (4.0-11.0)
[2015-12-06 04:24] LABS: HEMO FLAGS AUTO DIFF
[2015-12-06] MEDS: ACETAMINOPHEN 650 MG/20.3 ML UDC PO SCH (04:46)
[2015-12-06] MEDS: HEPARIN SODIUM - SQ 10,000 UNITS/ML VIAL SQ SCH (04:47)
[2015-12-06] MEDS: CLINDAMYCIN 150 MG CAP PO SCH ×4 (04:47→23:41)
--- NOTE | 2015-12-06 05:03 | RADRPT ---
EXAM DATE/TIME: 12/06/2015 03:23 [facility] COMPARISON: CHEST SINGLE AP, December 05, 2015, 3:52. INDICATIONS : Shortness of breath, possible pulmonary disease. MEDICAL HISTORY : Hypertension. SURGICAL HISTORY : None. ENCOUNTER: Subsequent ACUITY: 4 - 6 days PAIN SCORE: Non-responsive. LOCATION: Bilateral chest FINDINGS: Bibasilar opacities are present may be due to a combination of consolidation and or pleural effusion. Lines and tubes are present not significantly changed. Perivascular pulmonary edema has not changed. CONCLUSION: No appreciable change. Freddy Connor MD on December 06, 2015 at 5:01 Board Certified Radiologist. This report was verified electronically.
[2015-12-06 05:05] LABS: BLOOD GAS BASE EXCESS -0.1 mmol/L (-2-2); BLOOD GAS HCO3 23 mmol/L (22-26); BLOOD GAS METHEMOGLOBIN 0.9 % (0-2); BLOOD GAS O2 HGB SATURATION 96 % (90-100); BLOOD GAS OXYGEN CONTENT 10.7 Vol % (12.0-20.0); BLOOD GAS PCO2 28 mmHg (38-42); BLOOD GAS PO2 127 mmHg (61-120); BLOOD GAS TOTAL HGB 7.8 G/DL (12.0-16.0); TEMP CORR TO 98.6
[2015-12-06 05:06] LABS: CRITICAL VALUE YES; DRAW SITE ART LINE; FIO2 40 %; OXYGEN DEVICE VENTILATOR; STAT NO; VENT SETTINGS AC 18/550/5PEEP
[2015-12-06 05:10] LABS: PLATELET ESTIMATE SMEAR LOW (NORMAL); PLATELET MORPHOLOGY NORMAL (NORMAL); SCAN/DIFF AUTO DIFF CONFIRMED
[2015-12-06] MEDS: SODIUM BICARBONATE 8.4% INJ 100 MEQ in DEXTROSE 5% IN WATE 1000ML INJ 1,000 ML IV SCH ×2 (06:34)
[2015-12-06] MEDS: NOREPINEPHRINE-DEXTROSE DRIP 250 ML IV SCH (06:34)
--- NOTE | 2015-12-06 09:15 | PD.PLAS.PN ---
Subjective Remarks December 05, 2015 Patient is intubated. Vital Signs Date Time Temp Pulse Resp B/P Pulse Ox O2 Delivery O2 Flow Rate FiO2 12/06/15 07:58 98 40 12/06/15 06:00 124 12/06/15 04:34 98 40 12/06/15 04:11 99 40 12/06/15 04:00 50 12/06/15 04:00 131 114/59 111/67 12/06/15 04:00 131 12/06/15 04:00 99.8 131 21 114/59 99 111/67 12/06/15 03:46 19 12/06/15 02:00 143 12/06/15 01:26 95 40 12/06/15 00:00 130 12/06/15 00:00 130 127/66 119/71 12/06/15 00:00 99.6 130 19 127/66 98 119/71 12/06/15 00:00 40 12/05/15 23:38 19 12/05/15 22:21 96 45 12/05/15 22:19 98 40 12/05/15 22:00 137 12/05/15 20:31 98 40 12/05/15 20:00 127 12/05/15 20:00 127 114/70 114/70 12/05/15 20:00 40 12/05/15 20:00 99.0 127 19 98 114/70 12/05/15 18:00 132 12/05/15 16:33 98 40 12/05/15 16:00 98.8 110 18 112/74 98 120/64 12/05/15 16:00 110 12/05/15 16:00 110 112/74 120/64 12/05/15 16:00 45 12/05/15 14:00 97 12/05/15 12:00 45 12/05/15 12:00 102 96/53 101/52 12/05/15 12:00 97 12/05/15 12:00 99.0 97 18 96/53 99 101/52 12/05/15 10:00 101 I/O 12/05/15 12/05/15 12/05/15 12/06/15 12/06/15 12/06/15 07:00 15:00 23:00 07:00 15:00 23:00 Intake Total 1903 ml 3228 ml 1474 ml 2114 ml Output Total 675 ml 1300 ml 375 ml 625 ml Balance 1228 ml 1928 ml 1099 ml 1489 ml Intake Oral 0 ml 0 ml IV Total 1203 ml 2366 ml 1143 ml 1494 ml Tube Feeding 162 ml 211 ml 60 ml Albumin 500 ml 500 ml 500 ml Tube Irrigant 120 ml 60 ml Other 200 ml 200 ml Output Urine Total 575 ml 900 ml 275 ml 600 ml Stool Total 100 ml 400 ml 100 ml 25 ml Gastric Drainage Total 0 ml 0 ml 0 ml Laboratory Tests Test 12/06/15 12/06/15 03:00 05:00 White Blood Count 8.2 Red Blood Count 2.46 Hemoglobin 7.8 Hematocrit 22.9 Mean Corpuscular Volume 93.1 Mean Corpuscular Hemoglobin 31.8 Mean Corpuscular Hemoglobin 34.2 Concent Red Cell Distribution Width 16.9 Platelet Count 20 Mean Platelet Volume 10.0 Neutrophils (%) (Auto) 86.5 Lymphocytes (%) (Auto) 11.6 Monocytes (%) (Auto) 0.8 Eosinophils (%) (Auto) 0.5 Basophils (%) (Auto) 0.6 Neutrophils # (Auto) 7.1 Lymphocytes # (Auto) 0.9 Monocytes # (Auto) 0.1 Eosinophils # (Auto) 0.0 Basophils # (Auto) 0.0 CBC Comment AUTO DIFF Differential Comment AUTO DIFF CONFIRMED Platelet Estimate LOW Platelet Morphology Comment NORMAL Sodium Level 135 Potassium Level 3.1 Chloride Level 95 Carbon Dioxide Level 28.0 Anion Gap 12 Blood Urea Nitrogen 70 Creatinine 2.67 Estimat Glomerular Filtration 25 Rate Random Glucose 188 Calcium Level 7.7 Phosphorus Level 2.4 Magnesium Level 1.8 Total Bilirubin 4.2 Aspartate Amino Transf 46 (AST/SGOT) Alanine Aminotransferase 28 (ALT/SGPT) Alkaline Phosphatase 198 Total Protein 4.3 Albumin 2.1 Random Vancomycin Level 15.7 Blood Gas Puncture Site ART LINE Blood Gas Patient Temperature 98.6 Blood Gas HCO3 23 Blood Gas Base Excess -0.1 Blood Gas Oxygen Saturation 96 Arterial Blood pH 7.52 Arterial Blood Partial 28 Pressure CO2 Arterial Blood Partial 127 Pressure O2 Arterial Blood Oxygen Content 10.7 Arterial Blood 0.0 Carboxyhemoglobin Arterial Blood Methemoglobin 0.9 Blood Gas Hemoglobin 7.8 Oxygen Delivery Device VENTILATOR Blood Gas Ventilator Setting AC 18/550/5PEEP Blood Gas Inspired Oxygen 40 Date/Time Procedure Status Source Growth 12/02/15 19:55 Gram Stain - Final Complete Wound Arm 12/02/15 19:55 Wound Culture - Final Complete Staphylococcus Aureus 12/02/15 10:30 Urine Culture - Final Complete Urine Clean Catch NO GROWTH IN 48 HOURS. 12/02/15 10:30 Aerobic Blood Culture - Final Complete Blood Peripheral Escherichia Coli 12/02/15 10:30 Anaerobic Blood Culture - Final Complete Escherichia Coli Result Diagram: 12/06/15 0300 12/06/15 0300 Exam Findings Fingers of right hand warm and well perfused. No further skin necrosis. No evidence of healing. Wound is soupy. Wound culture positive for Staph. Plan Impression: Right upper extremity is stable at the present time. Plan: Wound care daily. Barbara Pedro MD Dec 06, 2015 09:15
[2015-12-06] MEDS ORDERED: POTASSIUM CHLOR 40 MEQ PREMIX 100 ML IV ONE (09:30)
[2015-12-06] MEDS ORDERED: BUMETANIDE INJ 1 MG/4 ML VIAL IV PUSH ONE (09:30)
--- NOTE | 2015-12-06 09:37 | HHI.CCPN ---
Subjective Remarks/Hospital Course 55-year-old male brought by EMS with altered mental status. He has been confused for 2 days but this morning has been the worst. He has history of chronic opiate medications including methadone and morphine that he takes for pain management and hence they gave him Narcan IV which brought the GCS up to 13. The blood glucose was 74. He has open wounds from his right upper and bilateral lower extremities. He has history of hepatitis C. Last week he was pealing and eating shrimps. Bedside blood sugar was 76 in the ER. He was tachycardic in 1 teens and was intubated in the ED for airway protection. Admitted to ICU with sepsis due to Staph Aureus hand infection and E. Coli bacteriemia. 12/05 Patient remains sedated with Fentanyl and intubated. On Levophed 3 mics, Vasopressin 0.03 mics and Bicarb drip. T:99.8 TF placed on hold OGT to LIWS last night - gastric drainage 525ml overnight. Objective - Vital Signs Date Time Temp Pulse Resp B/P Pulse Ox O2 Delivery O2 Flow Rate FiO2 12/06/15 07:58 98 40 12/06/15 06:00 124 12/06/15 04:00 114/59 111/67 12/06/15 04:00 99.8 21 12/02/15 14:29 Ventilator 12/02/15 11:15 2 Intake and Output 12/05/15 12/05/15 12/06/15 08:00 16:00 00:00 Intake Total 1903 ml 3228 ml 1474 ml Output Total 675 ml 1300 ml 375 ml Balance 1228 ml 1928 ml 1099 ml Result Diagram: 12/06/15 0300 12/06/15 0300 Other Results Laboratory Tests Test 12/06/15 12/06/15 03:00 05:00 White Blood Count 8.2 TH/MM3 Red Blood Count 2.46 MIL/MM3 Hemoglobin 7.8 GM/DL Hematocrit 22.9 % Mean Corpuscular Volume 93.1 FL Mean Corpuscular Hemoglobin 31.8 PG Mean Corpuscular Hemoglobin 34.2 % Concent Red Cell Distribution Width 16.9 % Platelet Count 20 TH/MM3 Mean Platelet Volume 10.0 FL Neutrophils (%) (Auto) 86.5 % Lymphocytes (%) (Auto) 11.6 % Monocytes (%) (Auto) 0.8 % Eosinophils (%) (Auto) 0.5 % Basophils (%) (Auto) 0.6 % Neutrophils # (Auto) 7.1 TH/MM3 Lymphocytes # (Auto) 0.9 TH/MM3 Monocytes # (Auto) 0.1 TH/MM3 Eosinophils # (Auto) 0.0 TH/MM3 Basophils # (Auto) 0.0 TH/MM3 CBC Comment AUTO DIFF Differential Comment AUTO DIFF CONFIRMED Platelet Estimate LOW Platelet Morphology Comment NORMAL Sodium Level 135 MEQ/L Potassium Level 3.1 MEQ/L Chloride Level 95 MEQ/L Carbon Dioxide Level 28.0 MEQ/L Anion Gap 12 MEQ/L Blood Urea Nitrogen 70 MG/DL Creatinine 2.67 MG/DL Estimat Glomerular Filtration 25 ML/MIN Rate Random Glucose 188 MG/DL Calcium Level 7.7 MG/DL Phosphorus Level 2.4 MG/DL Magnesium Level 1.8 MG/DL Total Bilirubin 4.2 MG/DL Aspartate Amino Transf 46 U/L (AST/SGOT) Alanine Aminotransferase 28 U/L (ALT/SGPT) Alkaline Phosphatase 198 U/L Total Protein 4.3 GM/DL Albumin 2.1 GM/DL Random Vancomycin Level 15.7 COMMENT Blood Gas Puncture Site ART LINE Blood Gas Patient Temperature 98.6 Blood Gas HCO3 23 mmol/L Blood Gas Base Excess -0.1 mmol/L Blood Gas Oxygen Saturation 96 % Arterial Blood pH 7.52 Arterial Blood Partial 28 mmHg Pressure CO2 Arterial Blood Partial 127 mmHg Pressure O2 Arterial Blood Oxygen Content 10.7 Vol % Arterial Blood 0.0 % Carboxyhemoglobin Arterial Blood Methemoglobin 0.9 % Blood Gas Hemoglobin 7.8 G/DL Oxygen Delivery Device VENTILATOR Blood Gas Ventilator Setting AC 18/550/5PEEP Blood Gas Inspired Oxygen 40 % Imaging Last Impressions Chest X-Ray 12/06/15 0600 Signed Impressions: Service Date/Time: November 03:23 - CONCLUSION: No appreciable change. Freddy Connor MD Abdomen/Pelvis CT 12/04/15 0000 Signed Impressions: Service Date/Time: Friday, December 04, 2015 16:24 - CONCLUSION: 1. Mildly distended small bowel in the mid and lower abdomen. Contrast is clearly seen extending into the distal small bowel and ascending colon so a complete obstruction is not seen. A transition point is not seen. This pattern likely represents an ileus versus a partial obstruction. 2. Multiple nonobstructing renal stones. 3. Abnormal appearance of the spleen which appears to represent a splenule. It could be correlated if the patient has had either primary splenic removal or splenic injury and this is what is either left of the spleen or a developing splenule. This is likely of no significance. 4. Mild ascites. 5. Increased density within the gallbladder representing either tumefactive sludge or noncalcified stones. 6. Mild bilateral pleural effusions with prominent areas of lower lobe atelectasis or consolidation at the bases bilaterally. 7. Subacute to chronic bilateral rib fractures and multiple compression fractures in the lower thoracic and lumbar spine as described above. The patient does have a prior CT examination from 08/26/2014. All the compression deformities described above are new when compared to that scan. Arnaldo Reyes MD Head CT 12/02/15 1013 Signed Impressions: Service Date/Time: Wednesday, December 02, 2015 11:00 - CONCLUSION: 1. No intracranial abnormality is seen. 2. Air-fluid level in the right maxillary sinus. Arnaldo Reyes MD Objective Remarks GENERAL: Patient is 55yo critically ill sedated, intubated and on pressors SKIN: Warm and dry. HEAD: Normocephalic. EYES: No scleral icterus. No injection or drainage. NECK: Supple, trachea midline. No JVD or lymphadenopathy. CARDIOVASCULAR:Tachycardic without murmurs, gallops, or rubs. RESPIRATORY: Breath sounds equal bilaterally. No accessory muscle use. GASTROINTESTINAL: soft, non-tender, nondistended. MUSCULOSKELETAL: Generalized anasarca. Multiple open wounds in the lower extremity. RUE in sling - diminishing edema and erythema, dressing with serosang staining BACK: Nontender without obvious deformity. No CVA tenderness. Neuro: Sedated, intubated A/P Problem List: (1) History of splenectomy ICD Code: Z90.81 Status: Acute (2) Altered mental status ICD Code: R41.82 Status: Acute (3) Sepsis ICD Code: A41.9 Status: Acute (4) Respiratory failure ICD Code: J96.90 Status: Acute Assessment and Plan Neuro: - AMS due to sepsis - staph infection + E coli bacteriemia - On Fentanyl infusion for sedation. Daily sedation vacation when appropriate - CT head negative CV - Wean off pressors as tarun ( on Levophed 6 mics, Vasopressin 0.03 mics) keep MAP >65mmHg -Lactic acid 2.7 on 12/02, CVP monitoring Respiratory - Continue with vent support keep sat >92% -Bronchodilators, ICU vent bundle. Decrease RR 14, TV 500 - Start SBT daily as tarun ID - Severe sepsis - Necrotizing Fascitis - Staph Aureus - Debridement 12/01 p.m by hand surgery - E Coli - bacteriemia 12/01 - Continue abx per ID ( On Rocephin and Clindamycin) recheck BC x2 sets Monitor for signs of infections ( Fever, WBC) Renal -DEIRDRE Renal function slowly improving with Cr: 2.67 today from 2.86 UO: 1775ml in 24 hrs, diurese with Bumex 1mg x1, d/c bicarb drip Will give KCL 40meq IV x1 for K 3.1 GI - TF placed on hold OGT to LIWS last night - gastric drainage 525ml overnight. - Check KUB r/o ileus Hem Anemia Thrombocytopenia- likely 2nd sepsis - monitor CBC, transfuse 1u PLT Phereses for PLT 20 -Check INR, PT, PTT and Fibrogen level r/o DIC -Hep PLT ab negative on 12/03 Endo - ISS with accuchecks On Pepcid for GI prophylaxis -d/c Heparin Sq for severe thrombocytopenia Patient remains critically ill in septic shock on multiple pressors, DEIRDRE and mechanical ventilation. Critical Care: The total critical care time was 35 minutes. Time to perform other separately billable procedures was not included in the critical care time. Problem Qualifiers (1) Altered mental status: Qualified Code: R41.0 - Delirium (2) Sepsis: Qualified Code: A41.9 - Sepsis, due to unspecified organism (3) Respiratory failure: Qualified Code: J96.00 - Acute respiratory failure, unspecified whether with hypoxia or hypercapnia Colin Morton MD Dec 06, 2015 09:37 Colin Morton MD Dec 06, 2015 09:37
--- NOTE | 2015-12-06 10:02 | MB ---
cc: ASHLY CARTAGENA M.D. DATE OF CONSULTATION: 12/06/2015 The patient is being seen at the request of Dr. Argelia Becerra. REASON FOR CONSULTATION Swelling and infection of right upper extremity. HISTORY OF PRESENT ILLNESS The patient is a 55-year-old male who was brought in on 12/01 by EMS with altered mental status, apparently had been confused for a couple of days. The patient was admitted and apparently was septic with significant sequela from the sepsis. It was noted that there was swelling of his right upper extremity with an eschar over the entire dorsum of the right hand in several areas of his arm. Consultation is requested regarding evaluation and treatment of this problem. The patient is similarly being seen for the same problem by Dr. Tej Hartmann. REVIEW OF SYSTEMS Unable to obtain. MEDICATION Medications listed on the chart. ALLERGIES COMPAZINE, DEMEROL, LEVAQUIN, PENICILLIN, PHENERGAN. PAST MEDICAL HISTORY Past medical history significant for: 1. Hepatitis C. 2. Obstructive sleep apnea. 3. Gout. 4. Rheumatoid arthritis. 5. Hypertension. 6. Chronic low pain. 7. Migraines. 8. Osteopenia. 9. Peritonitis in 1978 after splenectomy. PAST SURGICAL HISTORY Surgical history significant for: 1. Splenectomy 1978 from trauma. 2. Anterior cruciate ligament repair of his left knee. 3. Hip fracture repair. 4. Liver biopsy. PHYSICAL EXAMINATION GENERAL: The patient is lying in bed. He is sedated, intubated, appearing ill. His skin is cold and pale. HEAD: Atraumatic, normocephalic. EYES: His pupils are equal, round and reactive to light. CARDIAC: His heart is regular. RIGHT UPPER EXTREMITY: Examination of his right upper extremity reveals significant swelling with an eschar over the dorsal aspect of the right hand measuring approximately 6 x 5 cm in greatest dimension. In addition there is several small areas of eschar going up to his elbow. There is swelling in the area of the bursa of his elbow. In addition there is a significant amount of fluctuance beneath the eschar on the dorsal aspect of his right hand. IMPRESSION The patient appears to have an abscess secondary to hematoma of his right hand dorsally. In addition there is swelling along a line on the ulnar aspect of his hand up to his elbow. He may also have an infected bursa. PLAN Dr. Hartmann would like to proceed with incision and drainage and debridement at the bedside. He will be the surgeon and I will assist him in this endeavor. MD BYRON Campos/BEV /9:18 AM /9:49 AM
--- NOTE | 2015-12-06 10:56 | RADRPT ---
EXAM DATE/TIME: 12/06/2015 09:53 [facility] COMPARISON: CT ABDOMEN & PELVIS W/O CONTRAST, December 04, 2015, 16:24. INDICATIONS : Evaluate for ileus. MEDICAL HISTORY : Hypertension. Cardiovascular disease. Hepatitis C. SURGICAL HISTORY : None. ENCOUNTER: Subsequent ACUITY: 4 - 6 days PAIN SCORE: 0/10 LOCATION: Abdomen. FINDINGS: Supine view of the abdomen was performed. Air is seen in a somewhat distended colon. Significant smal l bowel dilatation is not seen. There is an NG tube in place. Contrast is seen in the rectum. Surgica l screws are seen at the left proximal femur. CONCLUSION: Nonspecific KUB. Air is seen within a mildly distended colon but contrast is clearly seen in the rect um. Arnaldo Reyes MD on December 06, 2015 at 10:49 Board Certified Radiologist. This report was verified electronically.
[2015-12-06 11:55] LABS: APTT (PATIENT) 59.5 SEC (22.6-28.8); INTERNATIONAL NORMALIZED RATIO 1.6 RATIO; PROTHROMBIN TIME - PATIENT 16.6 SEC (9.8-11.4)
--- NOTE | 2015-12-06 11:56 | HHI.IDPN ---
Subjective Subjective Remarks ID [id number] for Mr Sarah is a 55 yo CM with asplenia (remote, post splenectomy 22 trauma) and on steroids for gout developed progressive generalized weakness and mental status change since Thursday [employer] PL[employer]ING [employer]IST. He was difficult to arouse and so brought him to the ED at . He was found to be hypotensive, anuric in ARF, was intubated in ER for airway protection High dose Levophed (up to 20 mcg) required to maintain his BP which at some point was 70/30s. Overnight events reviewed. Low grade fevers. Remains on 2 mics of Levophed and on vasopressin 0.03 Blood clx with E.coli 4/4 Hand and elbow growing MSSA, R hand in sling. 2 BMs reported overnight. UOP good No generalized rash Antibiotics ceftriaxone IV Clinda oral. Lines RIJ and other Line sites with no e/o infection Past Medical History RA HCV sp splenectomy Allergies: Coded Allergies: Compazine (Verified Allergy, Severe, VOMITING, RASH, 08/26/14) SLURRED SPEECH, MIGRAINES Demerol (Verified Allergy, Severe, VOMITING, 08/26/14) Levaquin (Verified Allergy, Severe, 08/26/14) Penicillin (Verified Allergy, Severe, Rash, 08/26/14) Phenergan (Verified Allergy, Severe, VOMITING, 08/26/14) Uncoded Allergies: ANTI-CONVULSIVES (Allergy, Severe, MIGRAINES, SLURRED SPEECH,, 01/23/14) Objective . Vital Signs Date Time Temp Pulse Resp B/P Pulse Ox O2 Delivery O2 Flow Rate FiO2 12/06/15 11:35 96 40 12/06/15 09:30 98 40 12/06/15 07:58 98 40 12/06/15 06:00 124 12/06/15 04:34 98 40 12/06/15 04:11 99 40 12/06/15 04:00 50 12/06/15 04:00 131 114/59 111/67 12/06/15 04:00 131 12/06/15 04:00 99.8 131 21 114/59 99 111/67 12/06/15 03:46 19 12/06/15 02:00 143 12/06/15 01:26 95 40 12/06/15 00:00 130 12/06/15 00:00 130 127/66 119/71 12/06/15 00:00 99.6 130 19 127/66 98 119/71 12/06/15 00:00 40 12/05/15 23:38 19 12/05/15 22:21 96 45 12/05/15 22:19 98 40 12/05/15 22:00 137 12/05/15 20:31 98 40 12/05/15 20:00 127 12/05/15 20:00 127 114/70 114/70 12/05/15 20:00 40 12/05/15 20:00 99.0 127 19 98 114/70 12/05/15 18:00 132 12/05/15 16:33 98 40 12/05/15 16:00 98.8 110 18 112/74 98 120/64 12/05/15 16:00 110 12/05/15 16:00 110 112/74 120/64 12/05/15 16:00 45 12/05/15 14:00 97 12/05/15 12:00 45 12/05/15 12:00 102 96/53 101/52 12/05/15 12:00 97 12/05/15 12:00 99.0 97 18 96/53 99 101/52 12/05/15 12/05/15 12/06/15 15:00 23:00 07:00 Intake Total 3228 ml 1474 ml 2114 ml Output Total 1300 ml 375 ml 625 ml Balance 1928 ml 1099 ml 1489 ml Intake Oral 0 ml IV Total 2366 ml 1143 ml 1494 ml Tube Feeding 162 ml 211 ml 60 ml Albumin 500 ml 500 ml Tube Irrigant 120 ml 60 ml Other 200 ml Output Urine Total 900 ml 275 ml 600 ml Stool Total 400 ml 100 ml 25 ml Gastric Drainage Total 0 ml 0 ml . Laboratory Tests Test 12/05/15 12/06/15 04:30 03:00 White Blood Count 10.7 TH/MM3 8.2 TH/MM3 Red Blood Count 2.37 MIL/MM3 2.46 MIL/MM3 Hemoglobin 7.8 GM/DL 7.8 GM/DL Hematocrit 21.7 % 22.9 % Mean Corpuscular Volume 91.6 FL 93.1 FL Mean Corpuscular Hemoglobin 32.7 PG 31.8 PG Mean Corpuscular Hemoglobin 35.6 % 34.2 % Concent Red Cell Distribution Width 17.1 % 16.9 % Platelet Count 33 TH/MM3 20 TH/MM3 Mean Platelet Volume 9.8 FL 10.0 FL Neutrophils (%) (Auto) 88.8 % 86.5 % Lymphocytes (%) (Auto) 9.6 % 11.6 % Monocytes (%) (Auto) 0.9 % 0.8 % Eosinophils (%) (Auto) 0.5 % 0.5 % Basophils (%) (Auto) 0.2 % 0.6 % Neutrophils # (Auto) 9.5 TH/MM3 7.1 TH/MM3 Lymphocytes # (Auto) 1.0 TH/MM3 0.9 TH/MM3 Monocytes # (Auto) 0.1 TH/MM3 0.1 TH/MM3 Eosinophils # (Auto) 0.1 TH/MM3 0.0 TH/MM3 Basophils # (Auto) 0.0 TH/MM3 0.0 TH/MM3 CBC Comment AUTO DIFF AUTO DIFF Differential Total Cells 100 Counted Neutrophils % (Manual) 75 % Band Neutrophils % 16 % Lymphocytes % 7 % Monocytes % 1 % Eosinophils % 1 % Neutrophils # (Manual) 9.7 TH/MM3 Nucleated Red Blood Cells 1 /100 WBC Differential Comment FINAL DIFF AUTO DIFF MANUAL CONFIRMED Platelet Estimate LOW LOW Platelet Morphology Comment NORMAL NORMAL Target Cells 1+ Laboratory Tests Test 12/05/15 12/06/15 04:30 03:00 Sodium Level 137 MEQ/L 135 MEQ/L Potassium Level 2.6 MEQ/L 3.1 MEQ/L Chloride Level 95 MEQ/L 95 MEQ/L Carbon Dioxide Level 29.3 MEQ/L 28.0 MEQ/L Anion Gap 13 MEQ/L 12 MEQ/L Blood Urea Nitrogen 77 MG/DL 70 MG/DL Creatinine 2.86 MG/DL 2.67 MG/DL Estimat Glomerular Filtration 23 ML/MIN 25 ML/MIN Rate Random Glucose 104 MG/DL 188 MG/DL Calcium Level 7.6 MG/DL 7.7 MG/DL Phosphorus Level 3.1 MG/DL 2.4 MG/DL Magnesium Level 1.5 MG/DL 1.8 MG/DL Total Bilirubin 2.5 MG/DL 4.2 MG/DL Aspartate Amino Transf 68 U/L 46 U/L (AST/SGOT) Alanine Aminotransferase 37 U/L 28 U/L (ALT/SGPT) Alkaline Phosphatase 195 U/L 198 U/L Total Protein 4.7 GM/DL 4.3 GM/DL Albumin 2.3 GM/DL 2.1 GM/DL Microbiology Date/Time Procedure Status Source Growth 12/06/15 10:34 Aerobic Blood Culture Received Blood Peripheral Pending 12/06/15 10:34 Anaerobic Blood Culture Received Blood Peripheral Pending 12/06/15 10:48 Aerobic Blood Culture Received Blood Peripheral Pending 12/06/15 10:48 Anaerobic Blood Culture Received Blood Peripheral Pending Imaging Last Impressions Chest X-Ray 12/05/15 0600 Signed Impressions: Service Date/Time: Saturday, December 05, 2015 03:52 - CONCLUSION: No appreciable change. Freddy Connor MD Abdomen/Pelvis CT 12/04/15 0000 Signed Impressions: Service Date/Time: Friday, December 04, 2015 16:24 - CONCLUSION: 1. Mildly distended small bowel in the mid and lower abdomen. Contrast is clearly seen extending into the distal small bowel and ascending colon so a complete obstruction is not seen. A transition point is not seen. This pattern likely represents an ileus versus a partial obstruction. 2. Multiple nonobstructing renal stones. 3. Abnormal appearance of the spleen which appears to represent a splenule. It could be correlated if the patient has had either primary splenic removal or splenic injury and this is what is either left of the spleen or a developing splenule. This is likely of no significance. 4. Mild ascites. 5. Increased density within the gallbladder representing either tumefactive sludge or noncalcified stones. 6. Mild bilateral pleural effusions with prominent areas of lower lobe atelectasis or consolidation at the bases bilaterally. 7. Subacute to chronic bilateral rib fractures and multiple compression fractures in the lower thoracic and lumbar spine as described above. The patient does have a prior CT examination from 08/26/2014. All the compression deformities described above are new when compared to that scan. Arnaldo Reyes MD Head CT 12/02/15 1013 Signed Impressions: Service Date/Time: Wednesday, December 02, 2015 11:00 - CONCLUSION: 1. No intracranial abnormality is seen. 2. Air-fluid level in the right maxillary sinus. Arnaldo Reyes MD Physical Exam CONSTITUTIONAL/GENERAL: This is an adequately nourished patient, in no apparent distress. SKIN: No jaundice, rashes, multiple small poorly healing lesions. Ecchymoses on upper extremities. Multiple small wounds seen anteriorly on BLE. Skin temperature decreased BLE. Not diaphoretic. HEAD: Atraumatic. Normocephalic. EYES: Pupils equal and round and reactive. Extraocular motions intact. + more prominent scleral icterus, chemosis.Pale conjunctivae No injection or drainage. Fundi not examined. ENT: Nose without bleeding or purulent drainage. Oral without visible erythema, exudates, masses, or lesions. NECK: Trachea midline. Supple, nontender. No palpable thyroid enlargement or nodularity. CARDIOVASCULAR: HS audible. No murmur appreciated. RESPIRATORY/CHEST: Symmetric, unlabored respirations. Clear to auscultation. Breath sounds equal bilaterally. No wheezes, rales, or rhonchi. GASTROINTESTINAL: Abdomen soft, no reaction to palpation, moderately to severely distended. GENITOURINARY: Sandoval catheter in place with minimal amount of brownish urine MUSCULOSKELETAL: Extremities without clubbing, -no cyanosis, + diffuse 2+ edema. No joint tenderness or effusion noted. no mottling no clubbing. well perfused RUE in sling - diminishing edema and erythema, dressing with serosang staining LYMPHATICS: No palpable cervical or supraclavicular adenopathy. NEUROLOGICAL: heavily sedated, reacts to touch PSYCHIATRIC: unable to assess Assessment & Plan Remarks Septic shock with MODS E.coli bacteremia -source is unclear - suspect GI source Severe SSTI of RUE, MSSA - sp b/s I+D Immunosuppressed Critically ill & unstable, though somewhat better clincially PCN allergy, but no probs with Keflex -per mom acute VDRF ARF/ DEIRDRE/ATN 2/2 sepsis - improving Abx associated diarrhea, C.diff negative Continue Clinda oral Continue Ceftriaxone IV. Follow cultures Follow clinically. dw RN No family in room. to resume care in am. Barbara Clark MD Dec 06, 2015 11:56
[2015-12-06] MEDS: LACTULOSE SYRUP 20 GM/30 ML CUP PO SCH ×2 (13:20→20:09)
--- NOTE | 2015-12-06 13:30 | PD.PLAS.PN ---
Subjective Remarks Patient is intubated. Objective Vital Signs Date Time Temp Pulse Resp B/P Pulse Ox O2 Delivery O2 Flow Rate FiO2 12/06/15 11:35 96 40 12/06/15 09:30 98 40 12/06/15 07:58 98 40 12/06/15 06:00 124 12/06/15 04:34 98 40 12/06/15 04:11 99 40 12/06/15 04:00 50 12/06/15 04:00 131 114/59 111/67 12/06/15 04:00 131 12/06/15 04:00 99.8 131 21 114/59 99 111/67 12/06/15 03:46 19 12/06/15 02:00 143 12/06/15 01:26 95 40 12/06/15 00:00 130 12/06/15 00:00 130 127/66 119/71 12/06/15 00:00 99.6 130 19 127/66 98 119/71 12/06/15 00:00 40 12/05/15 23:38 19 12/05/15 22:21 96 45 12/05/15 22:19 98 40 12/05/15 22:00 137 12/05/15 20:31 98 40 12/05/15 20:00 127 12/05/15 20:00 127 114/70 114/70 12/05/15 20:00 40 12/05/15 20:00 99.0 127 19 98 114/70 12/05/15 18:00 132 12/05/15 16:33 98 40 12/05/15 16:00 98.8 110 18 112/74 98 120/64 12/05/15 16:00 110 12/05/15 16:00 110 112/74 120/64 12/05/15 16:00 45 12/05/15 14:00 97 I/O 12/05/15 12/05/15 12/05/15 12/06/15 12/06/15 12/06/15 07:00 15:00 23:00 07:00 15:00 23:00 Intake Total 1903 ml 3228 ml 1474 ml 2114 ml Output Total 675 ml 1300 ml 375 ml 625 ml Balance 1228 ml 1928 ml 1099 ml 1489 ml Intake Oral 0 ml 0 ml IV Total 1203 ml 2366 ml 1143 ml 1494 ml Tube Feeding 162 ml 211 ml 60 ml Albumin 500 ml 500 ml 500 ml Tube Irrigant 120 ml 60 ml Other 200 ml 200 ml Output Urine Total 575 ml 900 ml 275 ml 600 ml Stool Total 100 ml 400 ml 100 ml 25 ml Gastric Drainage Total 0 ml 0 ml 0 ml Laboratory Tests Test 12/06/15 12/06/15 12/06/15 12/06/15 03:00 05:00 09:35 10:34 White Blood Count 8.2 Red Blood Count 2.46 Hemoglobin 7.8 Hematocrit 22.9 Mean Corpuscular Volume 93.1 Mean Corpuscular Hemoglobin 31.8 Mean Corpuscular Hemoglobin 34.2 Concent Red Cell Distribution Width 16.9 Platelet Count 20 Mean Platelet Volume 10.0 Neutrophils (%) (Auto) 86.5 Lymphocytes (%) (Auto) 11.6 Monocytes (%) (Auto) 0.8 Eosinophils (%) (Auto) 0.5 Basophils (%) (Auto) 0.6 Neutrophils # (Auto) 7.1 Lymphocytes # (Auto) 0.9 Monocytes # (Auto) 0.1 Eosinophils # (Auto) 0.0 Basophils # (Auto) 0.0 CBC Comment AUTO DIFF Differential Comment AUTO DIFF CONFIRMED Platelet Estimate LOW Platelet Morphology Comment NORMAL Sodium Level 135 Potassium Level 3.1 Chloride Level 95 Carbon Dioxide Level 28.0 Anion Gap 12 Blood Urea Nitrogen 70 Creatinine 2.67 Estimat Glomerular Filtration 25 Rate Random Glucose 188 Calcium Level 7.7 Phosphorus Level 2.4 Magnesium Level 1.8 Total Bilirubin 4.2 Aspartate Amino Transf 46 (AST/SGOT) Alanine Aminotransferase 28 (ALT/SGPT) Alkaline Phosphatase 198 Total Protein 4.3 Albumin 2.1 Random Vancomycin Level 15.7 Blood Gas Puncture Site ART LINE Blood Gas Patient Temperature 98.6 Blood Gas HCO3 23 Blood Gas Base Excess -0.1 Blood Gas Oxygen Saturation 96 Arterial Blood pH 7.52 Arterial Blood Partial 28 Pressure CO2 Arterial Blood Partial 127 Pressure O2 Arterial Blood Oxygen Content 10.7 Arterial Blood 0.0 Carboxyhemoglobin Arterial Blood Methemoglobin 0.9 Blood Gas Hemoglobin 7.8 Oxygen Delivery Device VENTILATOR Blood Gas Ventilator Setting AC 18/550/5PEEP Blood Gas Inspired Oxygen 40 Blood Bank Comment Prothrombin Time 16.6 Prothromb Time International 1.6 Ratio Activated Partial 59.5 Thromboplast Time Fibrinogen 319 Date/Time Procedure Status Source Growth 12/06/15 10:48 Aerobic Blood Culture Received Blood Peripheral Pending 12/06/15 10:48 Anaerobic Blood Culture Received Blood Peripheral Pending 12/02/15 19:55 Gram Stain - Final Complete Wound Arm 12/02/15 19:55 Wound Culture - Final Complete Staphylococcus Aureus 12/02/15 10:30 Urine Culture - Final Complete Urine Clean Catch NO GROWTH IN 48 HOURS. 12/02/15 10:30 Aerobic Blood Culture - Final Complete Blood Peripheral Escherichia Coli 12/02/15 10:30 Anaerobic Blood Culture - Final Complete Escherichia Coli Result Diagram: 12/06/15 0300 12/06/15 0300 Exam Findings Dressing in place and arm elevated as requested. There is no evidence of healing at this time. Wound is soupy. No notable odor. Fingers are warm and well perfused. Assessment and Plan Diagnosis: (1) Open wound of right upper extremity with complication Assessment and Plan The wound is irrigated with 1L of saline and redressed with betadine soaked telfa, ABD pads, and kerlix and is elevated. Daily dressing changes will be ordered. Discussed with SOURAV. Nelly Park Dec 06, 2015 13:30
[2015-12-06 14:10] LABS: AUTOMATED NEUTROPHIL # 5.9 TH/MM3 (1.8-7.7); BASOPHIL % 0.6 % (0.0-2.0); EOSINOPHIL % 0.3 % (0.0-4.0); HEMATOCRIT 21.6 % (39.0-51.0); LYMPH % 12.2 % (9.0-44.0); LYMPHOCYTE # 0.8 TH/MM3 (1.0-4.8); MEAN CELL VOLUME 92.5 FL (80.0-100.0); MEAN CORPUSCULAR HEMOGLOBIN 31.7 PG (27.0-34.0); MEAN CORPUSCULAR HGB CONC 34.3 % (32.0-36.0); MONO % 0.8 % (0.0-8.0); NEUT % 86.1 % (16.0-70.0); PLATELET COUNT 46 TH/MM3 (150-450); RED BLOOD COUNT 2.34 MIL/MM3 (4.50-5.90); WHITE BLOOD COUNT 6.9 TH/MM3 (4.0-11.0)
[2015-12-06 14:12] LABS: HEMO FLAGS AUTO DIFF
[2015-12-06] MEDS: MORPHINE SULFATE 4 MG/ML INJ IV PUSH PRN (14:41)
[2015-12-06 15:03] LABS: PLATELET ESTIMATE SMEAR LOW (NORMAL); PLATELET MORPHOLOGY NORMAL (NORMAL); SCAN/DIFF AUTO DIFF CONFIRMED
[2015-12-06] MEDS: cefTRIAXone INJ 2,000 MG in SODIUM CHLORIDE 0.9% INJ 100 ML IV SCH (17:12)
[2015-12-06] MEDS: CHLORHEXIDINE 0.12% (ORAL KIT) 15 ML CUP MT SCH (20:09)
[2015-12-06] MEDS: fentaNYL 2,500 MCG/NS 250 ML IV SCH (23:41)
[2015-12-07] VITALS (18 sets, daily range): BP systolic 84–117; BP diastolic 49–65; PULSE 105–122; RESP 12–19; TEMP 97.5–99; O2SAT 97–100
[2015-12-07] MEDS: MEDIUM DOSE INSULIN NOVOLIN REGULAR SUPPLEMENTAL SCALE SQ SCH ×6 (02:00→22:00)
[2015-12-07] MEDS: CHLORHEXIDINE GLUCONATE 2 % 1 PACK (2 CLOTHS) TOP SCH (02:32)
[2015-12-07] MEDS: RESP: ALBUTEROL 2.5 MG/IPRATROPIUM 0.5 MG NEB (SCH) INH ×4 (03:25→22:03)
[2015-12-07 03:35] LABS: AUTOMATED NEUTROPHIL # 6.2 TH/MM3 (1.8-7.7); BASOPHIL # 0.1 TH/MM3 (0-0.2); BASOPHIL % 1.1 % (0.0-2.0); EOSINOPHIL % 0.6 % (0.0-4.0); HEMATOCRIT 21.3 % (39.0-51.0); LYMPH % 14.5 % (9.0-44.0); LYMPHOCYTE # 1.1 TH/MM3 (1.0-4.8); MEAN CELL VOLUME 92.4 FL (80.0-100.0); MEAN CORPUSCULAR HEMOGLOBIN 32.3 PG (27.0-34.0); MONO % 1.5 % (0.0-8.0); NEUT % 82.3 % (16.0-70.0); PLATELET COUNT 36 TH/MM3 (150-450); RED BLOOD COUNT 2.31 MIL/MM3 (4.50-5.90); WHITE BLOOD COUNT 7.5 TH/MM3 (4.0-11.0)
[2015-12-07 03:36] LABS: HEMO FLAGS AUTO DIFF
[2015-12-07 03:58] LABS: ALKALINE PHOSPHATASE 194 U/L (45-117); ALT (GPT) 30 U/L (12-78); ANION GAP 6 MEQ/L (5-15); AST (GOT) 51 U/L (15-37); BLOOD UREA NITROGEN 60 MG/DL (7-18); CHLORIDE 95 MEQ/L (98-107); GLOMERULAR FILTRATION RATE 33 ML/MIN (>89); POTASSIUM 3.1 MEQ/L (3.5-5.1); SODIUM (NA) 136 MEQ/L (136-145); TOTAL BILIRUBIN ADULT 4.5 MG/DL (0.2-1.0)
[2015-12-07 04:07] LABS: BANDS 11 % (0-6); CORRECTED NUCLEATED RBC 1 /100 WBC (0-0); METAMYELOCYTES 1 % (0-1); NEUTROPHIL # MANUAL DIFF 6.8 TH/MM3 (1.8-7.7); POLYS (SEG NEUTROPHILS) 78 % (16-70); SCAN/DIFF FINAL DIFF MANUAL; WBC DIFF SAMPLE 100
[2015-12-07 04:08] LABS: PLATELET ESTIMATE SMEAR LOW (NORMAL); PLATELET MORPHOLOGY NORMAL (NORMAL)
[2015-12-07 04:10] LABS: ACANTHOCYTES OCC (NORMAL); TARGET CELLS 1+ (NORMAL)
[2015-12-07] MEDS: CLINDAMYCIN 150 MG CAP PO SCH ×4 (05:43→22:33)
[2015-12-07] MEDS ORDERED: POTASSIUM CHLOR 40 MEQ PREMIX 100 ML IV ONE (08:00)
[2015-12-07] MEDS: LACTULOSE SYRUP 20 GM/30 ML CUP PO SCH ×2 (08:02→22:33)
[2015-12-07] MEDS: CHLORHEXIDINE 0.12% (ORAL KIT) 15 ML CUP MT SCH ×2 (08:02→22:34)
[2015-12-07] MEDS: VASOPRESSIN INJ 40 UNITS in DEXTROSE 5% IN WATER 100ML INJ 98 ML IV SCH ×2 (08:02)
--- NOTE | 2015-12-07 08:12 | HHI.CCPN ---
Subjective Remarks/Hospital Course 55-year-old male brought by EMS with altered mental status. He has been confused for 2 days but this morning has been the worst. He has history of chronic opiate medications including methadone and morphine that he takes for pain management and hence they gave him Narcan IV which brought the GCS up to 13. The blood glucose was 74. He has open wounds from his right upper and bilateral lower extremities. He has history of hepatitis C. Last week he was pealing and eating shrimps. Bedside blood sugar was 76 in the ER. He was tachycardic in 1 teens and was intubated in the ED for airway protection. Admitted to ICU with sepsis due to Staph Aureus hand infection and E. Coli bacteriemia. 12/05 Patient remains sedated with Fentanyl and intubated. On Levophed 3 mics, Vasopressin 0.03 mics and Bicarb drip. T:99.8 TF placed on hold OGT to LIWS last night - gastric drainage 525ml overnight. 12/06 Patient is sedated with Fentanyl and intubated, On Levophed 3 mics, off vasopressin. Gastric output 400ml in 24 hrs. KUB abdomen yesterday mildly distended colon otherwise non specific KUB. Objective - Vital Signs Date Time Temp Pulse Resp B/P Pulse Ox O2 Delivery O2 Flow Rate FiO2 12/07/15 06:00 105 12/07/15 04:38 100 40 12/07/15 04:00 98.0 14 84/49 98/58 12/06/15 20:39 Ventilator Intake and Output 12/06/15 12/06/15 12/07/15 08:00 16:00 00:00 Intake Total 2114 ml 831 ml 390 ml Output Total 625 ml 1100 ml 1050 ml Balance 1489 ml -269 ml -660 ml Result Diagram: 12/07/15 0330 12/07/15 0330 Other Results Laboratory Tests Test 12/06/15 12/06/15 12/06/15 12/07/15 09:35 10:34 13:40 03:30 Blood Bank Comment Prothrombin Time 16.6 SEC Prothromb Time International 1.6 RATIO Ratio Activated Partial 59.5 SEC Thromboplast Time Fibrinogen 319 mg/dL White Blood Count 6.9 TH/MM3 7.5 TH/MM3 Red Blood Count 2.34 MIL/MM3 2.31 MIL/MM3 Hemoglobin 7.4 GM/DL 7.5 GM/DL Hematocrit 21.6 % 21.3 % Mean Corpuscular Volume 92.5 FL 92.4 FL Mean Corpuscular Hemoglobin 31.7 PG 32.3 PG Mean Corpuscular Hemoglobin 34.3 % 35.0 % Concent Red Cell Distribution Width 17.0 % 17.0 % Platelet Count 46 TH/MM3 36 TH/MM3 Mean Platelet Volume 8.9 FL 9.4 FL Neutrophils (%) (Auto) 86.1 % 82.3 % Lymphocytes (%) (Auto) 12.2 % 14.5 % Monocytes (%) (Auto) 0.8 % 1.5 % Eosinophils (%) (Auto) 0.3 % 0.6 % Basophils (%) (Auto) 0.6 % 1.1 % Neutrophils # (Auto) 5.9 TH/MM3 6.2 TH/MM3 Lymphocytes # (Auto) 0.8 TH/MM3 1.1 TH/MM3 Monocytes # (Auto) 0.1 TH/MM3 0.1 TH/MM3 Eosinophils # (Auto) 0.0 TH/MM3 0.0 TH/MM3 Basophils # (Auto) 0.0 TH/MM3 0.1 TH/MM3 CBC Comment AUTO DIFF AUTO DIFF Differential Comment AUTO DIFF FINAL DIFF CONFIRMED MANUAL Platelet Estimate LOW LOW Platelet Morphology Comment NORMAL NORMAL Differential Total Cells 100 Counted Neutrophils % (Manual) 78 % Band Neutrophils % 11 % Lymphocytes % 9 % Monocytes % 1 % Neutrophils # (Manual) 6.8 TH/MM3 Metamyelocytes 1 % Nucleated Red Blood Cells 1 /100 WBC Target Cells 1+ Acanthocytes OCC Sodium Level 136 MEQ/L Potassium Level 3.1 MEQ/L Chloride Level 95 MEQ/L Carbon Dioxide Level 35.0 MEQ/L Anion Gap 6 MEQ/L Blood Urea Nitrogen 60 MG/DL Creatinine 2.09 MG/DL Estimat Glomerular Filtration 33 ML/MIN Rate Random Glucose 81 MG/DL Calcium Level 8.2 MG/DL Total Bilirubin 4.5 MG/DL Aspartate Amino Transf 51 U/L (AST/SGOT) Alanine Aminotransferase 30 U/L (ALT/SGPT) Alkaline Phosphatase 194 U/L Total Protein 4.8 GM/DL Albumin 1.7 GM/DL Imaging Last Impressions Chest X-Ray 12/06/15 0600 Signed Impressions: Service Date/Time: November 03:23 - CONCLUSION: No appreciable change. Freddy Connor MD Abdomen X-Ray 12/06/15 0000 Signed Impressions: Service Date/Time: November 09:53 - CONCLUSION: Nonspecific KUB. Air is seen within a mildly distended colon but contrast is clearly seen in the rectum. Arnaldo Reyes MD Abdomen/Pelvis CT 12/04/15 0000 Signed Impressions: Service Date/Time: Friday, December 04, 2015 16:24 - CONCLUSION: 1. Mildly distended small bowel in the mid and lower abdomen. Contrast is clearly seen extending into the distal small bowel and ascending colon so a complete obstruction is not seen. A transition point is not seen. This pattern likely represents an ileus versus a partial obstruction. 2. Multiple nonobstructing renal stones. 3. Abnormal appearance of the spleen which appears to represent a splenule. It could be correlated if the patient has had either primary splenic removal or splenic injury and this is what is either left of the spleen or a developing splenule. This is likely of no significance. 4. Mild ascites. 5. Increased density within the gallbladder representing either tumefactive sludge or noncalcified stones. 6. Mild bilateral pleural effusions with prominent areas of lower lobe atelectasis or consolidation at the bases bilaterally. 7. Subacute to chronic bilateral rib fractures and multiple compression fractures in the lower thoracic and lumbar spine as described above. The patient does have a prior CT examination from 08/26/2014. All the compression deformities described above are new when compared to that scan. Arnaldo Reyes MD Head CT 12/02/15 1013 Signed Impressions: Service Date/Time: Wednesday, December 02, 2015 11:00 - CONCLUSION: 1. No intracranial abnormality is seen. 2. Air-fluid level in the right maxillary sinus. Arnaldo Reyes MD Objective Remarks GENERAL: Patient is 55yo critically ill sedated, intubated and on pressors SKIN: Warm and dry. HEAD: Normocephalic. EYES: No scleral icterus. No injection or drainage. NECK: Supple, trachea midline. No JVD or lymphadenopathy. CARDIOVASCULAR:Tachycardic without murmurs, gallops, or rubs. RESPIRATORY: Breath sounds equal bilaterally. No accessory muscle use. GASTROINTESTINAL: soft, non-tender, nondistended. MUSCULOSKELETAL: Generalized anasarca. Multiple open wounds in the lower extremity. RUE in sling - diminishing edema and erythema, dressing with serosang staining BACK: Nontender without obvious deformity. No CVA tenderness. Neuro: Sedated, intubated A/P Problem List: (1) History of splenectomy ICD Code: Z90.81 Status: Acute (2) Altered mental status ICD Code: R41.82 Status: Acute (3) Sepsis ICD Code: A41.9 Status: Acute (4) Respiratory failure ICD Code: J96.90 Status: Acute Assessment and Plan Neuro: - AMS due to sepsis - staph infection + E coli bacteriemia - On Fentanyl infusion for sedation. Daily sedation vacation when appropriate - CT head negative CV - Wean off Levophed keep MAP>65mmHg -Lactic acid 2.7 on 12/02, CVP monitoring Respiratory - Continue with vent support keep sat >92% -Bronchodilators, ICU vent bundle. - SBT daily as tarun ID - Severe sepsis - Necrotizing Fascitis - Staph Aureus - Debridement 12/01 p.m by hand surgery - E Coli - bacteriemia 12/01 - Continue abx per ID ( On Rocephin and Clindamycin) follow up on BC from 12/05 Monitor for signs of infections ( Fever, WBC) Renal -DEIRDRE Renal function improving with Cr: 2.0 today from 2.6 UO: 2250 ml in 24 hrs, diurese with Bumex 1mg x1, Will give KCL 40meq IV x1 for K 3.1 GI - Restart TF- glucerna with goal rate 55ml/hr Hem Anemia Thrombocytopenia- likely 2nd sepsis - monitor CBC, s/p transfusion 1u PLT Phereses PLT 36 today -INR .6, Fibrinogen 316 12/02 -Hep PLT ab negative on 12/03 Endo - ISS with accuchecks On Pepcid for GI prophylaxis -SCD Patient remains critically ill in septic shock on pressor, DEIRDRE and mechanical ventilation. Critical Care: The total critical care time was 35 minutes. Time to perform other separately billable procedures was not included in the critical care time. Problem Qualifiers (1) Altered mental status: Qualified Code: R41.0 - Delirium (2) Sepsis: Qualified Code: A41.9 - Sepsis, due to unspecified organism (3) Respiratory failure: Qualified Code: J96.00 - Acute respiratory failure, unspecified whether with hypoxia or hypercapnia Colin Morton MD Dec 07, 2015 08:12
[2015-12-07 08:57] LABS: MAGNESIUM 1.8 MG/DL (1.5-2.5)
[2015-12-07] MEDS ORDERED: BUMETANIDE INJ 1 MG/4 ML VIAL IV PUSH ONE (09:00)
[2015-12-07] MEDS ORDERED: PHARMACY ORDERED LAB XX ONE (10:45)
[2015-12-07] MEDS: cefTRIAXone INJ 2,000 MG in SODIUM CHLORIDE 0.9% INJ 100 ML IV SCH (15:09)
[2015-12-07] MEDS: MORPHINE SULFATE 4 MG/ML INJ IV PUSH PRN (15:09)
--- NOTE | 2015-12-07 20:02 | HHI.IDPN ---
Subjective Subjective Remarks Late entry - pt was seen around 12 noon today Remains on low dose of levaphed tolerating CPP worsening edema and fluid retention afebrile Antibiotics ceftriaxone IV Clinda oral. Lines RIJ and other Line sites with no e/o infection Past Medical History RA HCV sp splenectomy Allergies: Coded Allergies: Compazine (Verified Allergy, Severe, VOMITING, RASH, 08/26/14) SLURRED SPEECH, MIGRAINES Demerol (Verified Allergy, Severe, VOMITING, 08/26/14) Levaquin (Verified Allergy, Severe, 08/26/14) Penicillin (Verified Allergy, Severe, Rash, 08/26/14) Phenergan (Verified Allergy, Severe, VOMITING, 08/26/14) Uncoded Allergies: ANTI-CONVULSIVES (Allergy, Severe, MIGRAINES, SLURRED SPEECH,, 01/23/14) Objective . Vital Signs Date Time Temp Pulse Resp B/P Pulse Ox O2 Delivery O2 Flow Rate FiO2 12/07/15 17:36 100 35 12/07/15 16:00 35 12/07/15 16:00 122 12/07/15 16:00 98.8 122 15 117/65 100 12/07/15 16:00 12/07/15 14:00 115 12/07/15 13:58 100 35 12/07/15 12:00 112 12/07/15 12:00 98.6 112 12 91/53 100 103/61 12/07/15 12:00 35 12/07/15 12:00 12/07/15 10:15 35 12/07/15 10:10 35 12/07/15 10:00 110 12/07/15 08:18 100 40 12/07/15 08:00 12/07/15 08:00 40 12/07/15 08:00 109 12/07/15 08:00 98.2 109 14 103/59 100 12/07/15 06:00 105 12/07/15 04:38 100 40 12/07/15 04:00 40 12/07/15 04:00 98.0 107 14 84/49 100 98/58 12/07/15 04:00 108 12/07/15 04:00 12/07/15 02:00 107 12/07/15 01:05 100 40 12/07/15 00:00 108 12/07/15 00:00 40 12/07/15 00:00 12/07/15 00:00 97.5 108 14 88/52 100 110/63 12/06/15 22:05 100 40 12/06/15 22:00 106 12/06/15 20:55 100 40 12/06/15 20:39 100 Ventilator 12/06/15 20:15 100 40 12/06/15 20:00 40 12/06/15 20:00 106 12/06/15 20:00 98.0 105 14 83/48 100 113/64 12/06/15 20:00 12/06/15 12/06/15 12/07/15 14:59 22:59 06:59 Intake Total 831 ml 390 ml 250 ml Output Total 1100 ml 1050 ml 500 ml Balance -269 ml -660 ml -250 ml IV Total 460 ml 390 ml 250 ml Tube Feeding 0 ml Platelets 191 ml Other 180 ml Output Urine Total 1000 ml 750 ml 500 ml Gastric Drainage Total 100 ml 300 ml . Laboratory Tests Test 12/06/15 12/06/15 12/07/15 03:00 13:40 03:30 White Blood Count 8.2 TH/MM3 6.9 TH/MM3 7.5 TH/MM3 Red Blood Count 2.46 MIL/MM3 2.34 MIL/MM3 2.31 MIL/MM3 Hemoglobin 7.8 GM/DL 7.4 GM/DL 7.5 GM/DL Hematocrit 22.9 % 21.6 % 21.3 % Mean Corpuscular Volume 93.1 FL 92.5 FL 92.4 FL Mean Corpuscular Hemoglobin 31.8 PG 31.7 PG 32.3 PG Mean Corpuscular Hemoglobin 34.2 % 34.3 % 35.0 % Concent Red Cell Distribution Width 16.9 % 17.0 % 17.0 % Platelet Count 20 TH/MM3 46 TH/MM3 36 TH/MM3 Mean Platelet Volume 10.0 FL 8.9 FL 9.4 FL Neutrophils (%) (Auto) 86.5 % 86.1 % 82.3 % Lymphocytes (%) (Auto) 11.6 % 12.2 % 14.5 % Monocytes (%) (Auto) 0.8 % 0.8 % 1.5 % Eosinophils (%) (Auto) 0.5 % 0.3 % 0.6 % Basophils (%) (Auto) 0.6 % 0.6 % 1.1 % Neutrophils # (Auto) 7.1 TH/MM3 5.9 TH/MM3 6.2 TH/MM3 Lymphocytes # (Auto) 0.9 TH/MM3 0.8 TH/MM3 1.1 TH/MM3 Monocytes # (Auto) 0.1 TH/MM3 0.1 TH/MM3 0.1 TH/MM3 Eosinophils # (Auto) 0.0 TH/MM3 0.0 TH/MM3 0.0 TH/MM3 Basophils # (Auto) 0.0 TH/MM3 0.0 TH/MM3 0.1 TH/MM3 CBC Comment AUTO DIFF AUTO DIFF AUTO DIFF Differential Comment AUTO DIFF AUTO DIFF FINAL DIFF CONFIRMED CONFIRMED MANUAL Platelet Estimate LOW LOW LOW Platelet Morphology Comment NORMAL NORMAL NORMAL Differential Total Cells 100 Counted Neutrophils % (Manual) 78 % Band Neutrophils % 11 % Lymphocytes % 9 % Monocytes % 1 % Neutrophils # (Manual) 6.8 TH/MM3 Metamyelocytes 1 % Nucleated Red Blood Cells 1 /100 WBC Target Cells 1+ Acanthocytes OCC Laboratory Tests Test 12/06/15 12/07/15 03:00 03:30 Sodium Level 135 MEQ/L 136 MEQ/L Potassium Level 3.1 MEQ/L 3.1 MEQ/L Chloride Level 95 MEQ/L 95 MEQ/L Carbon Dioxide Level 28.0 MEQ/L 35.0 MEQ/L Anion Gap 12 MEQ/L 6 MEQ/L Blood Urea Nitrogen 70 MG/DL 60 MG/DL Creatinine 2.67 MG/DL 2.09 MG/DL Estimat Glomerular Filtration 25 ML/MIN 33 ML/MIN Rate Random Glucose 188 MG/DL 81 MG/DL Calcium Level 7.7 MG/DL 8.2 MG/DL Phosphorus Level 2.4 MG/DL 2.9 MG/DL Magnesium Level 1.8 MG/DL 1.8 MG/DL Total Bilirubin 4.2 MG/DL 4.5 MG/DL Aspartate Amino Transf 46 U/L 51 U/L (AST/SGOT) Alanine Aminotransferase 28 U/L 30 U/L (ALT/SGPT) Alkaline Phosphatase 198 U/L 194 U/L Total Protein 4.3 GM/DL 4.8 GM/DL Albumin 2.1 GM/DL 1.7 GM/DL Microbiology Date/Time Procedure Status Source Growth 12/06/15 10:34 Aerobic Blood Culture - Preliminary Resulted Blood Peripheral NO GROWTH IN 1 DAY 12/06/15 10:34 Anaerobic Blood Culture - Preliminary Resulted Blood Peripheral NO GROWTH IN 1 DAY 12/06/15 10:48 Aerobic Blood Culture - Preliminary Resulted Blood Peripheral NO GROWTH IN 1 DAY 12/06/15 10:48 Anaerobic Blood Culture - Preliminary Resulted Blood Peripheral NO GROWTH IN 1 DAY Imaging Last Impressions Chest X-Ray 12/06/15 0600 Signed Impressions: Service Date/Time: November 03:23 - CONCLUSION: No appreciable change. Freddy Connor MD Abdomen X-Ray 12/06/15 0000 Signed Impressions: Service Date/Time: November 09:53 - CONCLUSION: Nonspecific KUB. Air is seen within a mildly distended colon but contrast is clearly seen in the rectum. Arnaldo Reyes MD Abdomen/Pelvis CT 12/04/15 0000 Signed Impressions: Service Date/Time: Friday, December 04, 2015 16:24 - CONCLUSION: 1. Mildly distended small bowel in the mid and lower abdomen. Contrast is clearly seen extending into the distal small bowel and ascending colon so a complete obstruction is not seen. A transition point is not seen. This pattern likely represents an ileus versus a partial obstruction. 2. Multiple nonobstructing renal stones. 3. Abnormal appearance of the spleen which appears to represent a splenule. It could be correlated if the patient has had either primary splenic removal or splenic injury and this is what is either left of the spleen or a developing splenule. This is likely of no significance. 4. Mild ascites. 5. Increased density within the gallbladder representing either tumefactive sludge or noncalcified stones. 6. Mild bilateral pleural effusions with prominent areas of lower lobe atelectasis or consolidation at the bases bilaterally. 7. Subacute to chronic bilateral rib fractures and multiple compression fractures in the lower thoracic and lumbar spine as described above. The patient does have a prior CT examination from 08/26/2014. All the compression deformities described above are new when compared to that scan. Arnaldo Reyes MD Head CT 12/02/15 1013 Signed Impressions: Service Date/Time: Wednesday, December 02, 2015 11:00 - CONCLUSION: 1. No intracranial abnormality is seen. 2. Air-fluid level in the right maxillary sinus. Arnaldo Reyes MD Physical Exam CONSTITUTIONAL/GENERAL: This is an adequately nourished patient, in no apparent distress. SKIN: No jaundice, rashes, multiple small poorly healing lesions. Ecchymoses on upper extremities. Multiple small wounds seen anteriorly on BLE. Skin temperature decreased BLE. Not diaphoretic. HEAD: Atraumatic. Normocephalic. EYES: Pupils equal and round and reactive. Extraocular motions intact. + prominent scleral icterus, chemosis.Pale conjunctivae No injection or drainage. Fundi not examined. ENT: Nose without bleeding or purulent drainage. Oral without visible erythema, exudates, masses, or lesions. NECK: Trachea midline. Supple, nontender. No palpable thyroid enlargement or nodularity. CARDIOVASCULAR: HS audible. No murmur appreciated. RESPIRATORY/CHEST: Symmetric, unlabored respirations. Clear to auscultation. Breath sounds equal bilaterally. No wheezes, rales, or rhonchi. GASTROINTESTINAL: Abdomen soft, no reaction to palpation, moderately to severely distended. GENITOURINARY: Sandoval catheter in place with minimal amount of brownish urine MUSCULOSKELETAL: Extremities without clubbing, -no cyanosis, + diffuse massive 4 + edema. No joint tenderness or effusion noted. no mottling no clubbing. well perfused BUE in sling - diminishing edema and erythema, dressing with serosang staining NEUROLOGICAL: heavily sedated, reacts to touch PSYCHIATRIC: unable to assess Assessment & Plan Remarks Septic shock with MODS - persistent bandemia E.coli bacteremia -source is unclear - suspect GI source - repeat BC is negative Severe SSTI of RUE, MSSA - sp b/s I+D Immunosuppressed Critically ill & unstable, though somewhat better clincially PCN allergy, but no probs with Keflex -per mom acute VDRF ARF/ DEIRDRE/ATN 2/2 sepsis - improving Abx associated diarrhea, C.diff negative Worsening fluid retention Continue Clinda oral Continue Ceftriaxone IV. Follow cultures Follow clinically. Argelia Kwon RN, MD Dec 07, 2015 20:01
[2015-12-08] VITALS (19 sets, daily range): BP systolic 91–119; BP diastolic 50–67; PULSE 117–126; RESP 16–21; TEMP 97.4–99.3; O2SAT 92–100
[2015-12-08] MEDS: MORPHINE SULFATE 4 MG/ML INJ IV PUSH PRN ×4 (01:07→23:35)
[2015-12-08] MEDS: MEDIUM DOSE INSULIN NOVOLIN REGULAR SUPPLEMENTAL SCALE SQ SCH ×5 (02:00→20:50)
[2015-12-08] MEDS: RESP: ALBUTEROL 2.5 MG/IPRATROPIUM 0.5 MG NEB (SCH) INH ×3 (03:23→21:06)
[2015-12-08] MEDS: CHLORHEXIDINE GLUCONATE 2 % 1 PACK (2 CLOTHS) TOP SCH (04:00)
[2015-12-08] MEDS: VASOPRESSIN INJ 40 UNITS in DEXTROSE 5% IN WATER 100ML INJ 98 ML IV SCH ×4 (05:44→21:39)
[2015-12-08] MEDS: CLINDAMYCIN 150 MG CAP PO SCH ×2 (06:59→13:02)
--- NOTE | 2015-12-08 07:32 | HHI.CCPN ---
Subjective Remarks/Hospital Course 55-year-old male brought by EMS with altered mental status. He has been confused for 2 days but this morning has been the worst. He has history of chronic opiate medications including methadone and morphine that he takes for pain management and hence they gave him Narcan IV which brought the GCS up to 13. The blood glucose was 74. He has open wounds from his right upper and bilateral lower extremities. He has history of hepatitis C. Last week he was pealing and eating shrimps. Bedside blood sugar was 76 in the ER. He was tachycardic in 1 teens and was intubated in the ED for airway protection. Admitted to ICU with sepsis due to Staph Aureus hand infection and E. Coli bacteriemia. 12/05 Patient remains sedated with Fentanyl and intubated. On Levophed 3 mics, Vasopressin 0.03 mics and Bicarb drip. T:99.8 TF placed on hold OGT to LIWS last night - gastric drainage 525ml overnight. 12/06 Patient is sedated with Fentanyl and intubated, On Levophed 3 mics, off vasopressin. Gastric output 400ml in 24 hrs. KUB abdomen yesterday mildly distended colon otherwise non specific KUB. 12/07 Patient is off sedation remains intubated tolerated CPAP for most day yesterday. Afebrile. on no drips, tolerating tube feeds. Objective - Vital Signs Date Time Temp Pulse Resp B/P Pulse Ox O2 Delivery O2 Flow Rate FiO2 12/08/15 06:48 98.5 124 19 99/54 92 103/59 12/08/15 04:00 35 12/06/15 20:39 Ventilator Intake and Output 12/07/15 12/07/15 12/08/15 08:00 16:00 00:00 Intake Total 250 ml 577 ml 269 ml Output Total 500 ml 900 ml 450 ml Balance -250 ml -323 ml -181 ml Result Diagram: 12/07/15 0330 12/07/15 0330 Imaging Last Impressions Chest X-Ray 12/06/15 0600 Signed Impressions: Service Date/Time: November 03:23 - CONCLUSION: No appreciable change. Freddy Connor MD Abdomen X-Ray 12/06/15 0000 Signed Impressions: Service Date/Time: November 09:53 - CONCLUSION: Nonspecific KUB. Air is seen within a mildly distended colon but contrast is clearly seen in the rectum. Arnaldo Reyes MD Abdomen/Pelvis CT 12/04/15 0000 Signed Impressions: Service Date/Time: Friday, December 04, 2015 16:24 - CONCLUSION: 1. Mildly distended small bowel in the mid and lower abdomen. Contrast is clearly seen extending into the distal small bowel and ascending colon so a complete obstruction is not seen. A transition point is not seen. This pattern likely represents an ileus versus a partial obstruction. 2. Multiple nonobstructing renal stones. 3. Abnormal appearance of the spleen which appears to represent a splenule. It could be correlated if the patient has had either primary splenic removal or splenic injury and this is what is either left of the spleen or a developing splenule. This is likely of no significance. 4. Mild ascites. 5. Increased density within the gallbladder representing either tumefactive sludge or noncalcified stones. 6. Mild bilateral pleural effusions with prominent areas of lower lobe atelectasis or consolidation at the bases bilaterally. 7. Subacute to chronic bilateral rib fractures and multiple compression fractures in the lower thoracic and lumbar spine as described above. The patient does have a prior CT examination from 08/26/2014. All the compression deformities described above are new when compared to that scan. Arnaldo Reyes MD Head CT 12/02/15 1013 Signed Impressions: Service Date/Time: Wednesday, December 02, 2015 11:00 - CONCLUSION: 1. No intracranial abnormality is seen. 2. Air-fluid level in the right maxillary sinus. Arnaldo Reyes MD Objective Remarks GENERAL: Patient is 55yo critically ill intubated. SKIN: Warm and dry. HEAD: Normocephalic. EYES: No scleral icterus. No injection or drainage. NECK: Supple, trachea midline. No JVD or lymphadenopathy. Orally intubated CARDIOVASCULAR:Tachycardic without murmurs, gallops, or rubs. RESPIRATORY: Breath sounds equal bilaterally. No accessory muscle use. GASTROINTESTINAL: soft, non-tender, nondistended. MUSCULOSKELETAL: Generalized anasarca. Multiple open wounds in the lower extremity. RUE in sling - diminishing edema and erythema BACK: Nontender without obvious deformity. No CVA tenderness. Neuro: intubated A/P Problem List: (1) History of splenectomy ICD Code: Z90.81 Status: Acute (2) Altered mental status ICD Code: R41.82 Status: Acute (3) Sepsis ICD Code: A41.9 Status: Acute (4) Respiratory failure ICD Code: J96.90 Status: Acute Assessment and Plan Neuro: - AMS due to sepsis - staph infection + E coli bacteriemia - Off sedation, monitor neuro status and avoid sedatives - 12/01 CT head negative CV - Off Levophed -Monitor HR and BP l keep MAP>65mmHg -Lactic acid 2.7 on 12/02, CVP monitoring Respiratory - Continue with vent support keep sat >92% -Bronchodilators, ICU vent bundle. - SBT daily as tarun ID - Severe sepsis - Necrotizing Fascitis - Staph Aureus - Debridement 12/01 p.m by hand surgery - E Coli - bacteriemia 12/01 - Continue abx per ID ( On Rocephin and Clindamycin) switch Rocephin to Vanco follow up on BC from 12/05...> 2/4 GPC Monitor for signs of infections ( Fever, WBC) Renal -DEIRDRE Monitor renal function, I/O', avoid nephrotoxins. Follow up on CMP today UO: 1450ml in 24 hrs, GI - Continue TF- Glucerna @ 55ml/hr Hem Anemia Thrombocytopenia- likely 2nd sepsis - monitor CBC, s/p transfusion 1u PLT Phereses on 12/05 -INR 1.6, Fibrinogen 319 12/05 -Hep PLT ab negative on 12/03 Endo - ISS with accuchecks On Pepcid for GI prophylaxis -SCD for DVT prophylaxis- not on chemical AC 2nd thrombocytopenia Patient remains critically ill iwith sepsis, DEIRDRE and mechanical ventilation. Lines: Right subclavian CVP placed 12/01 Critical Care: The total critical care time was 30 minutes. Time to perform other separately billable procedures was not included in the critical care time. Problem Qualifiers (1) Altered mental status: Qualified Code: R41.0 - Delirium (2) Sepsis: Qualified Code: A41.9 - Sepsis, due to unspecified organism (3) Respiratory failure: Qualified Code: J96.00 - Acute respiratory failure, unspecified whether with hypoxia or hypercapnia Colin Morton MD Dec 08, 2015 07:32
[2015-12-08 08:42] LABS: AUTOMATED NEUTROPHIL # 8.7 TH/MM3 (1.8-7.7); BASOPHIL % 0.4 % (0.0-2.0); EOSINOPHIL % 0.3 % (0.0-4.0); HEMATOCRIT 21.3 % (39.0-51.0); LYMPH % 11.1 % (9.0-44.0); LYMPHOCYTE # 1.1 TH/MM3 (1.0-4.8); MEAN CELL VOLUME 93.9 FL (80.0-100.0); MEAN CORPUSCULAR HEMOGLOBIN 31.7 PG (27.0-34.0); MEAN CORPUSCULAR HGB CONC 33.8 % (32.0-36.0); MONO % 0.8 % (0.0-8.0); NEUT % 87.4 % (16.0-70.0); PLATELET COUNT 54 TH/MM3 (150-450); RED BLOOD COUNT 2.26 MIL/MM3 (4.50-5.90); RED CELL DISTRIBUTION WIDTH 16.7 % (11.6-17.2)
[2015-12-08 08:56] LABS: ALKALINE PHOSPHATASE 333 U/L (45-117); ALT (GPT) 26 U/L (12-78); ANION GAP 8 MEQ/L (5-15); AST (GOT) 62 U/L (15-37); BICARBONATE 35.4 MEQ/L (21.0-32.0); BLOOD UREA NITROGEN 63 MG/DL (7-18); CHLORIDE 93 MEQ/L (98-107); GLOMERULAR FILTRATION RATE 37 ML/MIN (>89); POTASSIUM 3.4 MEQ/L (3.5-5.1); SODIUM (NA) 136 MEQ/L (136-145); TOTAL BILIRUBIN ADULT 3.4 MG/DL (0.2-1.0)
[2015-12-08 09:05] LABS: HEMO FLAGS AUTO DIFF
[2015-12-08] MEDS ORDERED: POTASSIUM CHLORIDE INJ 20 MEQ in SODIUM CHLORIDE 0.9% INJ 100 ML IV-CENTRAL ONE (09:15)
[2015-12-08 09:38] LABS: BANDS 11 % (0-6); BASOPHILS 1 % (0-2); CORRECTED NUCLEATED RBC 1 /100 WBC (0-0); EOSINOPHILS 1 % (0-4); MYELOCYTES 1 % (0-0); NEUTROPHIL # MANUAL DIFF 8.9 TH/MM3 (1.8-7.7); PLATELET ESTIMATE SMEAR LOW (NORMAL); POLYS (SEG NEUTROPHILS) 77 % (16-70); SCAN/DIFF FINAL DIFF MANUAL; WBC DIFF SAMPLE 100
[2015-12-08] MEDS: LACTULOSE SYRUP 20 GM/30 ML CUP PO SCH ×2 (09:38→20:52)
[2015-12-08] MEDS: CHLORHEXIDINE 0.12% (ORAL KIT) 15 ML CUP MT SCH ×2 (09:38→20:00)
[2015-12-08 09:39] LABS: PLATELET MORPHOLOGY ENLARGED (NORMAL); TARGET CELLS 2+ (NORMAL)
[2015-12-08] MEDS ORDERED: POTASSIUM CHLOR 20 MEQ PREMIX 100 ML IV ONE (10:02)
[2015-12-08] MEDS ORDERED: PHENYLEPH/NS 1000 MCG/10 ML SYR IV ONE (12:45)
[2015-12-08] MEDS ORDERED: Vancomycin Consult Pharmacy 1 EA OTHER SCH (12:45)
[2015-12-08] MEDS ORDERED: VANCOMYCIN INJ 1,000 MG in SODIUM CHLOR 0.9% 250 ML INJ 250 ML IV SCH (12:45)
[2015-12-08] MEDS ORDERED: NORMOSOL R INJ 1,000 ML IV ONE (12:45)
[2015-12-08] MEDS ORDERED: SODIUM CHLOR 0.9% 250 ML INJ 250 ML IV ONE (12:45)
[2015-12-08 13:43] LABS: BLOOD GAS BASE EXCESS 6.3 mmol/L (-2-2); BLOOD GAS HCO3 30 mmol/L (22-26); BLOOD GAS METHEMOGLOBIN 0.8 % (0-2); BLOOD GAS O2 HGB SATURATION 95 % (90-100); BLOOD GAS OXYGEN CONTENT 11.8 Vol % (12.0-20.0); BLOOD GAS PCO2 37 mmHg (38-42); BLOOD GAS PO2 106 mmHg (61-120); BLOOD GAS TOTAL HGB 8.7 G/DL (12.0-16.0); CRITICAL VALUE YES; OXYGEN DEVICE VENT; TEMP CORR TO 98.6
[2015-12-08 13:44] LABS: DRAW SITE ALINE; FIO2 100 %; STAT NO
--- NOTE | 2015-12-08 13:46 | RADRPT ---
EXAM DATE/TIME: 12/08/2015 12:44 [facility] COMPARISON: CHEST SINGLE AP, December 06, 2015, 3:23. INDICATIONS : Desaturation. MEDICAL HISTORY : Hypertension. SURGICAL HISTORY : None. ENCOUNTER: Subsequent ACUITY: 1 week PAIN SCORE: Non-responsive. LOCATION: Bilateral chest FINDINGS: The lung volumes are diminished. Endotracheal tube tip at the inferior margin of the clavicles. There is consolidation in the left greater than right lung base again seen. NG tube courses beneath the di aphragm, right Subclavian line tip overlies the SVC. CONCLUSION: No significant change has occurred. Arcadio Dickerson MD on December 08, 2015 at 13:44 Board Certified Radiologist. This report was verified electronically.
[2015-12-08] MEDS: ceFAZolin 2 GM PREMIX 50 ML IV SCH ×2 (14:49→23:35)
--- NOTE | 2015-12-08 15:18 | HHI.IDPN ---
Subjective Subjective Remarks Very unstable from resp status today Requires 100 % of FiO2 + fever, primarily low grade Blood clx are growing MSSA no secreions Antibiotics vanco Lines RIJ and other Line sites with no e/o infection Past Medical History RA HCV sp splenectomy Allergies: Coded Allergies: Compazine (Verified Allergy, Severe, VOMITING, RASH, 08/26/14) SLURRED SPEECH, MIGRAINES Demerol (Verified Allergy, Severe, VOMITING, 08/26/14) Levaquin (Verified Allergy, Severe, 08/26/14) Penicillin (Verified Allergy, Severe, Rash, 08/26/14) Phenergan (Verified Allergy, Severe, VOMITING, 08/26/14) Uncoded Allergies: ANTI-CONVULSIVES (Allergy, Severe, MIGRAINES, SLURRED SPEECH,, 01/23/14) Objective . Vital Signs Date Time Temp Pulse Resp B/P Pulse Ox O2 Delivery O2 Flow Rate FiO2 12/08/15 14:41 19 12/08/15 14:34 100 12/08/15 14:00 100 12/08/15 14:00 126 12/08/15 12:00 120 12/08/15 12:00 50 12/08/15 12:00 99.2 120 17 93/52 100 105/60 12/08/15 12:00 120 93/52 105/60 12/08/15 11:20 96 100 12/08/15 10:00 120 12/08/15 08:55 94 40 12/08/15 08:00 99.3 120 19 93/54 97 99/58 12/08/15 08:00 50 12/08/15 08:00 120 12/08/15 08:00 120 93/54 99/58 12/08/15 07:48 99 50 12/08/15 06:48 98.5 124 19 99/54 92 103/59 12/08/15 06:00 122 12/08/15 04:00 119 12/08/15 04:00 12/08/15 04:00 35 12/08/15 03:48 100 35 12/08/15 02:00 125 12/08/15 00:45 100 35 12/08/15 00:00 98.7 121 21 91/50 100 101/62 12/08/15 00:00 12/08/15 00:00 35 12/08/15 00:00 121 12/07/15 22:03 100 35 12/07/15 22:00 122 12/07/15 20:03 97 35 12/07/15 20:00 35 12/07/15 20:00 12/07/15 20:00 99.0 121 19 95/54 99 107/62 12/07/15 20:00 121 12/07/15 17:36 100 35 12/07/15 16:00 35 12/07/15 16:00 122 12/07/15 16:00 98.8 122 15 117/65 100 12/07/15 16:00 12/07/15 12/07/15 12/08/15 15:00 23:00 07:00 Intake Total 577 ml 269 ml 311 ml Output Total 900 ml 450 ml 300 ml Balance -323 ml -181 ml 11 ml IV Total 314 ml Tube Feeding 103 ml 149 ml 311 ml Other 160 ml 120 ml Output Urine Total 700 ml 450 ml 300 ml Gastric Drainage Total 200 ml . Laboratory Tests Test 12/07/15 12/08/15 03:30 06:30 White Blood Count 7.5 TH/MM3 10.0 TH/MM3 Red Blood Count 2.31 MIL/MM3 2.26 MIL/MM3 Hemoglobin 7.5 GM/DL 7.2 GM/DL Hematocrit 21.3 % 21.3 % Mean Corpuscular Volume 92.4 FL 93.9 FL Mean Corpuscular Hemoglobin 32.3 PG 31.7 PG Mean Corpuscular Hemoglobin 35.0 % 33.8 % Concent Red Cell Distribution Width 17.0 % 16.7 % Platelet Count 36 TH/MM3 54 TH/MM3 Mean Platelet Volume 9.4 FL 11.6 FL Neutrophils (%) (Auto) 82.3 % 87.4 % Lymphocytes (%) (Auto) 14.5 % 11.1 % Monocytes (%) (Auto) 1.5 % 0.8 % Eosinophils (%) (Auto) 0.6 % 0.3 % Basophils (%) (Auto) 1.1 % 0.4 % Neutrophils # (Auto) 6.2 TH/MM3 8.7 TH/MM3 Lymphocytes # (Auto) 1.1 TH/MM3 1.1 TH/MM3 Monocytes # (Auto) 0.1 TH/MM3 0.1 TH/MM3 Eosinophils # (Auto) 0.0 TH/MM3 0.0 TH/MM3 Basophils # (Auto) 0.1 TH/MM3 0.0 TH/MM3 CBC Comment AUTO DIFF AUTO DIFF Differential Total Cells 100 100 Counted Neutrophils % (Manual) 78 % 77 % Band Neutrophils % 11 % 11 % Lymphocytes % 9 % 7 % Monocytes % 1 % 2 % Neutrophils # (Manual) 6.8 TH/MM3 8.9 TH/MM3 Metamyelocytes 1 % Nucleated Red Blood Cells 1 /100 WBC 1 /100 WBC Differential Comment FINAL DIFF FINAL DIFF MANUAL MANUAL Platelet Estimate LOW LOW Platelet Morphology Comment NORMAL ENLARGED Target Cells 1+ 2+ Acanthocytes OCC Eosinophils % 1 % Basophils % 1 % Myelocytes 1 % Laboratory Tests Test 12/07/15 12/08/15 03:30 06:30 Sodium Level 136 MEQ/L 136 MEQ/L Potassium Level 3.1 MEQ/L 3.4 MEQ/L Chloride Level 95 MEQ/L 93 MEQ/L Carbon Dioxide Level 35.0 MEQ/L 35.4 MEQ/L Anion Gap 6 MEQ/L 8 MEQ/L Blood Urea Nitrogen 60 MG/DL 63 MG/DL Creatinine 2.09 MG/DL 1.93 MG/DL Estimat Glomerular Filtration 33 ML/MIN 37 ML/MIN Rate Random Glucose 81 MG/DL 136 MG/DL Calcium Level 8.2 MG/DL 7.7 MG/DL Phosphorus Level 2.9 MG/DL Magnesium Level 1.8 MG/DL 2.0 MG/DL Total Bilirubin 4.5 MG/DL 3.4 MG/DL Aspartate Amino Transf 51 U/L 62 U/L (AST/SGOT) Alanine Aminotransferase 30 U/L 26 U/L (ALT/SGPT) Alkaline Phosphatase 194 U/L 333 U/L Total Protein 4.8 GM/DL 5.2 GM/DL Albumin 1.7 GM/DL 1.5 GM/DL Microbiology Date/Time Procedure Status Source Growth 12/06/15 10:34 Aerobic Blood Culture - Preliminary Resulted Blood Peripheral Staphylococcus Aureus 12/06/15 10:34 Anaerobic Blood Culture - Preliminary Resulted Blood Peripheral NO GROWTH IN 2 DAYS 12/06/15 10:48 Aerobic Blood Culture - Preliminary Resulted Blood Peripheral Gram Positive Cocci 12/06/15 10:48 Anaerobic Blood Culture - Preliminary Resulted Blood Peripheral NO GROWTH IN 2 DAYS 12/08/15 09:44 Aerobic Blood Culture Received Blood Peripheral Pending 12/08/15 09:44 Anaerobic Blood Culture Received Blood Peripheral Pending 12/08/15 09:44 Aerobic Blood Culture Received Blood Peripheral Pending 12/08/15 09:44 Anaerobic Blood Culture Received Blood Peripheral Pending Imaging Last Impressions Chest X-Ray 12/08/15 0000 Signed Impressions: Service Date/Time: Tuesday, December 08, 2015 12:44 - CONCLUSION: No significant change has occurred. Arcadio Dickerson MD Abdomen X-Ray 12/06/15 0000 Signed Impressions: Service Date/Time: November 09:53 - CONCLUSION: Nonspecific KUB. Air is seen within a mildly distended colon but contrast is clearly seen in the rectum. Arnaldo Reyes MD Abdomen/Pelvis CT 12/04/15 0000 Signed Impressions: Service Date/Time: Friday, December 04, 2015 16:24 - CONCLUSION: 1. Mildly distended small bowel in the mid and lower abdomen. Contrast is clearly seen extending into the distal small bowel and ascending colon so a complete obstruction is not seen. A transition point is not seen. This pattern likely represents an ileus versus a partial obstruction. 2. Multiple nonobstructing renal stones. 3. Abnormal appearance of the spleen which appears to represent a splenule. It could be correlated if the patient has had either primary splenic removal or splenic injury and this is what is either left of the spleen or a developing splenule. This is likely of no significance. 4. Mild ascites. 5. Increased density within the gallbladder representing either tumefactive sludge or noncalcified stones. 6. Mild bilateral pleural effusions with prominent areas of lower lobe atelectasis or consolidation at the bases bilaterally. 7. Subacute to chronic bilateral rib fractures and multiple compression fractures in the lower thoracic and lumbar spine as described above. The patient does have a prior CT examination from 08/26/2014. All the compression deformities described above are new when compared to that scan. Arnaldo Reyes MD Head CT 12/02/15 1013 Signed Impressions: Service Date/Time: Wednesday, December 02, 2015 11:00 - CONCLUSION: 1. No intracranial abnormality is seen. 2. Air-fluid level in the right maxillary sinus. Arnaldo Reyes MD Physical Exam CONSTITUTIONAL/GENERAL: This is an adequately nourished patient, in no apparent distress. SKIN: + jaundice, rashes, multiple small poorly healing lesions. Ecchymoses on upper extremities. Multiple small wounds seen anteriorly on BLE. Skin temperature decreased BLE. Not diaphoretic. HEAD: Atraumatic. Normocephalic. EYES: Pupils equal and round and reactive. Extraocular motions intact. + prominent scleral icterus, chemosis.Pale conjunctivae No injection or drainage. Fundi not examined. ENT: Nose without bleeding or purulent drainage. Oral without visible erythema, exudates, masses, or lesions. NECK: Trachea midline. Supple, nontender. No palpable thyroid enlargement or nodularity. CARDIOVASCULAR: HS audible. No murmur appreciated. RESPIRATORY/CHEST: Symmetric, unlabored respirations. Extensive rhonchi on auscultation. Breath sounds equal bilaterally. GASTROINTESTINAL: Abdomen soft, no reaction to palpation, moderately to severely distended. GENITOURINARY: Sandoval catheter in place with minimal amount of brownish urine MUSCULOSKELETAL: Extremities without clubbing, -no cyanosis, Improved edema 2-3 +. No joint tenderness or effusion noted. no mottling no clubbing. well perfused BUE in sling - diminishing edema and erythema, dressing with serosang staining RUE was examined during dressing change: multiple new necrotic areas, heavy purulent drainage exposed bones tissues are necrotic no odor NEUROLOGICAL: heavily sedated, unresponsive PSYCHIATRIC: unable to assess Assessment & Plan Remarks Septic shock with MODS - persistent bandemia E.coli bacteremia -source is unclear - suspect GI source - repeat BC is negative Severe SSTI of RUE, MSSA - sp b/s I+D Immunosuppressed Critically ill & unstable, though somewhat better clincially PCN allergy, but no probs with Keflex -per mom acute VDRF ARF/ DEIRDRE/ATN 2/2 sepsis - improving Abx associated diarrhea, C.diff negative Worsening fluid retention MSSA bacteremia change Clinda oral to IV dc Ceftriaxone IV. dc vancomycin start cefazoline start azactam Follow repeat cultures Follow clinically. 2 D echo kwame RN Scott Paz,Argelia Ronquillo MD Dec 08, 2015 15:18
[2015-12-08] MEDS: AZTREONAM INJ 2,000 MG in SODIUM CHLORIDE 0.9% INJ 100 ML IV SCH (17:12)
[2015-12-08] MEDS ORDERED: VANCOMYCIN HCL 1000 MG VIAL ONE (17:27)
[2015-12-08] MEDS ORDERED: GENTAMICIN SULFATE 80 MG/2 ML VIAL ONE (17:27)
[2015-12-08] MEDS ORDERED: MIDAZOLAM HCL 2 MG/2 ML VIAL ONE (19:35)
[2015-12-08] MEDS: CLINDAMYCIN INJ 900 MG in SODIUM CHLORIDE 0.9% INJ 100 ML IV SCH (20:52)
[2015-12-09] VITALS (19 sets, daily range): BP systolic 88–122; BP diastolic 51–73; PULSE 113–126; RESP 15–21; TEMP 97.8–98.5; O2SAT 95–100
[2015-12-09] MEDS: AZTREONAM INJ 2,000 MG in SODIUM CHLORIDE 0.9% INJ 100 ML IV SCH ×3 (00:12→15:37)
[2015-12-09] MEDS: MEDIUM DOSE INSULIN NOVOLIN REGULAR SUPPLEMENTAL SCALE SQ SCH ×6 (02:41→22:00)
[2015-12-09 03:05] LABS: AUTOMATED NEUTROPHIL # 7.1 TH/MM3 (1.8-7.7); BASOPHIL # 0.1 TH/MM3 (0-0.2); EOSINOPHIL % 0.3 % (0.0-4.0); LYMPH % 12.8 % (9.0-44.0); LYMPHOCYTE # 1.1 TH/MM3 (1.0-4.8); MEAN CORPUSCULAR HEMOGLOBIN 30.8 PG (27.0-34.0); NEUT % 82.9 % (16.0-70.0); PLATELET COUNT 43 TH/MM3 (150-450); RED CELL DISTRIBUTION WIDTH 19.3 % (11.6-17.2); WHITE BLOOD COUNT 8.6 TH/MM3 (4.0-11.0)
[2015-12-09 03:07] LABS: HEMO FLAGS AUTO DIFF
[2015-12-09 03:10] LABS: INTERNATIONAL NORMALIZED RATIO 1.3 RATIO; PROTHROMBIN TIME - PATIENT 13.4 SEC (9.8-11.4)
[2015-12-09 03:16] LABS: ALT (GPT) 22 U/L (12-78); ANION GAP 9 MEQ/L (5-15); AST (GOT) 57 U/L (15-37); BICARBONATE 29.6 MEQ/L (21.0-32.0); BLOOD UREA NITROGEN 65 MG/DL (7-18); CHLORIDE 100 MEQ/L (98-107); GLOMERULAR FILTRATION RATE 34 ML/MIN (>89); POTASSIUM 3.9 MEQ/L (3.5-5.1); SODIUM (NA) 139 MEQ/L (136-145)
[2015-12-09 03:18] LABS: ALKALINE PHOSPHATASE 351 U/L (45-117); TOTAL BILIRUBIN ADULT 2.8 MG/DL (0.2-1.0)
[2015-12-09] MEDS: RESP: ALBUTEROL 2.5 MG/IPRATROPIUM 0.5 MG NEB (SCH) INH ×2 (03:20→09:08)
[2015-12-09] MEDS: CHLORHEXIDINE GLUCONATE 2 % 1 PACK (2 CLOTHS) TOP SCH (03:43)
[2015-12-09 03:48] LABS: BANDS 13 % (0-6); CORRECTED NUCLEATED RBC 1 /100 WBC (0-0); EOSINOPHILS 1 % (0-4); METAMYELOCYTES 1 % (0-1); MYELOCYTES 1 % (0-0); NEUTROPHIL # MANUAL DIFF 6.5 TH/MM3 (1.8-7.7); PLATELET ESTIMATE SMEAR LOW (NORMAL); PLATELET MORPHOLOGY ENLARGED (NORMAL); POLYS (SEG NEUTROPHILS) 60 % (16-70); SCAN/DIFF FINAL DIFF MANUAL; TARGET CELLS 1+ (NORMAL); WBC DIFF SAMPLE 100
[2015-12-09 03:49] LABS: KERATOCYTES OCC (NORMAL)
[2015-12-09] MEDS: NOREPINEPHRINE-DEXTROSE DRIP 250 ML IV SCH ×2 (04:31→08:07)
[2015-12-09] MEDS: CLINDAMYCIN INJ 900 MG in SODIUM CHLORIDE 0.9% INJ 100 ML IV SCH ×3 (04:32→20:05)
[2015-12-09] MEDS: ceFAZolin 2 GM PREMIX 50 ML IV SCH ×3 (06:11→23:07)
--- NOTE | 2015-12-09 07:32 | HHI.CCPN ---
Subjective Remarks/Hospital Course 55-year-old male brought by EMS with altered mental status. He has been confused for 2 days but this morning has been the worst. He has history of chronic opiate medications including methadone and morphine that he takes for pain management and hence they gave him Narcan IV which brought the GCS up to 13. The blood glucose was 74. He has open wounds from his right upper and bilateral lower extremities. He has history of hepatitis C. Last week he was pealing and eating shrimps. Bedside blood sugar was 76 in the ER. He was tachycardic in 1 teens and was intubated in the ED for airway protection. Admitted to ICU with sepsis due to Staph Aureus hand infection and E. Coli bacteriemia. 12/05 Patient remains sedated with Fentanyl and intubated. On Levophed 3 mics, Vasopressin 0.03 mics and Bicarb drip. T:99.8 TF placed on hold OGT to LIWS last night - gastric drainage 525ml overnight. 12/06 Patient is sedated with Fentanyl and intubated, On Levophed 3 mics, off vasopressin. Gastric output 400ml in 24 hrs. KUB abdomen yesterday mildly distended colon otherwise non specific KUB. 12/07 Patient is off sedation remains intubated tolerated CPAP for most day yesterday. Afebrile. on no drips, tolerating tube feeds. 12/08 Patient went to OR yesterday for debridement and irrigation of right forearm and wound VAC placement. Given 2U PRBC and 2u PLT yesterday and currently receiving 1of 2 u additional PRBC. Hgb 7.7, PLT 43 this morning. Patient also started on pressors now on Levophed 10 mics. Vasopressin 0.04 mics. On no sedation. Objective - Vital Signs Date Time Temp Pulse Resp B/P Pulse Ox O2 Delivery O2 Flow Rate FiO2 12/09/15 04:15 100 50 12/09/15 00:00 118 12/09/15 00:00 93/65 104/62 12/09/15 00:00 98.3 17 12/06/15 20:39 Ventilator Intake and Output 12/08/15 12/08/15 12/09/15 08:00 16:00 00:00 Intake Total 311 ml 1009 ml 1127 ml Output Total 300 ml 480 ml 450 ml Balance 11 ml 529 ml 677 ml Result Diagram: 12/09/15 0250 12/09/15 0250 Other Results Laboratory Tests Test 12/08/15 12/08/15 12/09/15 12/09/15 13:30 17:10 02:50 03:28 Blood Gas Puncture Site STACI Blood Gas Patient Temperature 98.6 Blood Gas HCO3 30 mmol/L Blood Gas Base Excess 6.3 mmol/L Blood Gas Oxygen Saturation 95 % Arterial Blood pH 7.51 Arterial Blood Partial 37 mmHg Pressure CO2 Arterial Blood Partial 106 mmHg Pressure O2 Arterial Blood Oxygen Content 11.8 Vol % Arterial Blood 0.0 % Carboxyhemoglobin Arterial Blood Methemoglobin 0.8 % Blood Gas Hemoglobin 8.7 G/DL Oxygen Delivery Device VENT Blood Gas Ventilator Setting AC/14/500/8/100 Blood Gas Inspired Oxygen 100 % Blood Type B POSITIVE Antibody Screen NEGATIVE Crossmatch Leukocyte-Reduced Leukocyte-Reduced Red Blood Red Blood Cells Cells Blood Bank Comment White Blood Count 8.6 TH/MM3 Red Blood Count 2.50 MIL/MM3 Hemoglobin 7.7 GM/DL Hematocrit 22.0 % Mean Corpuscular Volume 88.0 FL Mean Corpuscular Hemoglobin 30.8 PG Mean Corpuscular Hemoglobin 35.0 % Concent Red Cell Distribution Width 19.3 % Platelet Count 43 TH/MM3 Mean Platelet Volume 11.6 FL Neutrophils (%) (Auto) 82.9 % Lymphocytes (%) (Auto) 12.8 % Monocytes (%) (Auto) 3.0 % Eosinophils (%) (Auto) 0.3 % Basophils (%) (Auto) 1.0 % Neutrophils # (Auto) 7.1 TH/MM3 Lymphocytes # (Auto) 1.1 TH/MM3 Monocytes # (Auto) 0.3 TH/MM3 Eosinophils # (Auto) 0.0 TH/MM3 Basophils # (Auto) 0.1 TH/MM3 CBC Comment AUTO DIFF Differential Total Cells 100 Counted Neutrophils % (Manual) 60 % Band Neutrophils % 13 % Lymphocytes % 21 % Monocytes % 3 % Eosinophils % 1 % Neutrophils # (Manual) 6.5 TH/MM3 Metamyelocytes 1 % Myelocytes 1 % Nucleated Red Blood Cells 1 /100 WBC Differential Comment FINAL DIFF MANUAL Platelet Estimate LOW Platelet Morphology Comment ENLARGED Target Cells 1+ Keratocytes OCC Prothrombin Time 13.4 SEC Prothromb Time International 1.3 RATIO Ratio Sodium Level 139 MEQ/L Potassium Level 3.9 MEQ/L Chloride Level 100 MEQ/L Carbon Dioxide Level 29.6 MEQ/L Anion Gap 9 MEQ/L Blood Urea Nitrogen 65 MG/DL Creatinine 2.07 MG/DL Estimat Glomerular Filtration 34 ML/MIN Rate Random Glucose 196 MG/DL Calcium Level 7.5 MG/DL Total Bilirubin 2.8 MG/DL Aspartate Amino Transf 57 U/L (AST/SGOT) Alanine Aminotransferase 22 U/L (ALT/SGPT) Alkaline Phosphatase 351 U/L Total Protein 4.6 GM/DL Albumin 1.2 GM/DL Test 12/09/15 03:33 Blood Type B POSITIVE Crossmatch Leukocyte-Reduced Red Blood Cells Blood Bank Comment Imaging Last Impressions Chest X-Ray 12/08/15 0000 Signed Impressions: Service Date/Time: Tuesday, December 08, 2015 12:44 - CONCLUSION: No significant change has occurred. Arcadio Dickerson MD Abdomen X-Ray 12/06/15 0000 Signed Impressions: Service Date/Time: November 09:53 - CONCLUSION: Nonspecific KUB. Air is seen within a mildly distended colon but contrast is clearly seen in the rectum. Arnaldo Reyes MD Abdomen/Pelvis CT 12/04/15 0000 Signed Impressions: Service Date/Time: Friday, December 04, 2015 16:24 - CONCLUSION: 1. Mildly distended small bowel in the mid and lower abdomen. Contrast is clearly seen extending into the distal small bowel and ascending colon so a complete obstruction is not seen. A transition point is not seen. This pattern likely represents an ileus versus a partial obstruction. 2. Multiple nonobstructing renal stones. 3. Abnormal appearance of the spleen which appears to represent a splenule. It could be correlated if the patient has had either primary splenic removal or splenic injury and this is what is either left of the spleen or a developing splenule. This is likely of no significance. 4. Mild ascites. 5. Increased density within the gallbladder representing either tumefactive sludge or noncalcified stones. 6. Mild bilateral pleural effusions with prominent areas of lower lobe atelectasis or consolidation at the bases bilaterally. 7. Subacute to chronic bilateral rib fractures and multiple compression fractures in the lower thoracic and lumbar spine as described above. The patient does have a prior CT examination from 08/26/2014. All the compression deformities described above are new when compared to that scan. Arnaldo Reyes MD Head CT 12/02/15 1013 Signed Impressions: Service Date/Time: Wednesday, December 02, 2015 11:00 - CONCLUSION: 1. No intracranial abnormality is seen. 2. Air-fluid level in the right maxillary sinus. Arnaldo Reyes MD Objective Remarks GENERAL: Patient is 55yo critically ill intubated. SKIN: Warm and dry. HEAD: Normocephalic. EYES: No scleral icterus. No injection or drainage. NECK: Supple, trachea midline. No JVD or lymphadenopathy. Orally intubated CARDIOVASCULAR:Tachycardic without murmurs, gallops, or rubs. RESPIRATORY: Breath sounds equal bilaterally. No accessory muscle use. GASTROINTESTINAL: soft, non-tender, nondistended. MUSCULOSKELETAL: Generalized anasarca. Multiple open wounds in the lower extremity. RUE - s/p debridement and irrigation with wound VAC placement 12/07 BACK: Nontender without obvious deformity. No CVA tenderness. Neuro: intubated A/P Problem List: (1) History of splenectomy ICD Code: Z90.81 Status: Acute (2) Altered mental status ICD Code: R41.82 Status: Acute (3) Sepsis ICD Code: A41.9 Status: Acute (4) Respiratory failure ICD Code: J96.90 Status: Acute Assessment and Plan Neuro: - AMS due to sepsis - staph infection + E coli bacteriemia - Off sedation, monitor neuro status and avoid sedatives - 12/01 CT head negative, check Ammonia level CV - Wean off pressors ( on Levophed 10 mics, Vasopressin 0.04 mics) Monitor HR and BP l keep MAP>65mmHg -Lactic acid 2.7 on 12/02, CVP monitoring Respiratory -Continue with vent support keep sat >92%- on ACV with RR 12, TV 500, PEEP: 10, FIO2 50%. Decrease FIO2 40% -Bronchodilators, ICU vent bundle. ID - Severe sepsis - Necrotizing Fascitis - Staph Aureus - Debridement 12/01 p.m by hand surgery - E Coli - bacteriemia 12/01 - Continue abx per ID ( IV Clinda, Azactam, Ancef) follow up on BC from 12/05...> 2/4 GPC, Staph Aureus Monitor for signs of infections ( Fever, WBC) Wound care eval Renal -DEIRDRE Monitor renal function, I/O', avoid nephrotoxins. Cr: 2.07 from 1.93, UO: 855 ml in 24 hrs, Diurese with Bumex 1mg x1 GI - Continue TF- Glucerna @ 55ml/hr -d/c lactulose Hem Anemia Thrombocytopenia- likely 2nd sepsis - monitor CBC, s/p transfusion 1u PLT Phereses on 12/05 - s/p transfusion 2u PRBC, 2u PLT 12/07, receiving 2u PRBC -INR 1.3 today -Hep PLT ab negative on 12/03 Endo - ISS with accuchecks On Pepcid for GI prophylaxis -SCD for DVT prophylaxis- not on chemical AC 2nd thrombocytopenia Patient remains critically ill iwith sepsis, DEIRDRE and mechanical ventilation. Lines: Right subclavian CVP placed 12/01 Critical Care: The total critical care time was 30 minutes. Time to perform other separately billable procedures was not included in the critical care time. Problem Qualifiers (1) Altered mental status: Qualified Code: R41.0 - Delirium (2) Sepsis: Qualified Code: A41.9 - Sepsis, due to unspecified organism (3) Respiratory failure: Qualified Code: J96.00 - Acute respiratory failure, unspecified whether with hypoxia or hypercapnia Colin Morton MD Dec 09, 2015 07:32
[2015-12-09] MEDS ORDERED: BUMETANIDE INJ 1 MG/4 ML VIAL IV PUSH ONE (08:00)
[2015-12-09] MEDS: LACTULOSE SYRUP 20 GM/30 ML CUP PO SCH (08:06)
[2015-12-09] MEDS: CHLORHEXIDINE 0.12% (ORAL KIT) 15 ML CUP MT SCH ×2 (08:06→20:05)
[2015-12-09] MEDS: VASOPRESSIN INJ 40 UNITS in DEXTROSE 5% IN WATER 100ML INJ 98 ML IV SCH ×2 (08:09)
--- NOTE | 2015-12-09 10:02 | ECHLIM ---
Study Study Date:12/09/2015 STUDY CONCLUSIONS SUMMARY - Left ventricle: The cavity size was normal. Wall thickness was normal. Systolic function was vigorous. The estimated ejection fraction was in the range of 65% to 70%. Wall motion was normal; there were no regional wall motion abnormalities. Doppler parameters are consistent with abnormal left ventricular relaxation (grade 1 diastolic dysfunction). - Aortic valve: Valve area: 3.24cm^2(VTI). Valve area: 3.46cm^2 (Vmax). If LV function is below 40, please consider prescribing an ACEI or ARB or document rationale for non-use. PROCEDURE DATA STUDY STATUS: Elective. Procedure: Transthoracic echocardiography. Image quality was suboptimal. Scanning was performed from the parasternal, apical, and subcostal acoustic windows. Study completion: The patient tolerated the procedure well. Transthoracic echocardiography. M-mode, complete 2D, complete spectral Doppler, and color Doppler. Height: Height: 65in. Weight: Weight: 215.6lb. Body mass index: BMI: 35.9kg/m^2. Body surface area: BSA: 2.04m^2. Patient status: Inpatient. CARDIAC ANATOMY LEFT VENTRICLE: The cavity size was normal. Wall thickness was normal. Systolic function was vigorous. The estimated ejection fraction was in the range of 65% to 70%. Wall motion was normal; there were no regional wall motion abnormalities. Doppler parameters are consistent with abnormal left ventricular relaxation (grade 1 diastolic dysfunction). AORTIC VALVE: Poorly visualized. Mildly thickened leaflets. Doppler: Transvalvular velocity was within the normal range. There was no stenosis. No regurgitation. Valve area: 3.24cm^2(VTI). Indexed valve area: 1.59cm^2/m^2 (VTI). Valve area: 3.46cm^2 (Vmax). Indexed valve area: 1.7cm^2/m^2 (Vmax). Mean gradient: 3mm Hg (S). AORTA: Aortic root: The aortic root was normal in size. MITRAL VALVE: Poorly visualized. Structurally normal valve. Doppler: Transvalvular velocity was within the normal range. There was no evidence for stenosis. Trace regurgitation. LEFT ATRIUM: The atrium was normal in size. RIGHT VENTRICLE: The cavity size was normal. PULMONIC VALVE: Poorly visualized. Doppler: Transvalvular velocity was within the normal range. There was no evidence for stenosis. No regurgitation. TRICUSPID VALVE: Poorly visualized. Structurally normal valve. Doppler: Transvalvular velocity was within the normal range. No regurgitation. PULMONARY ARTERY: The main pulmonary artery was normal-sized. RIGHT ATRIUM: Poorly visualized. PERICARDIUM: There was no pericardial effusion. Patient weight: 215.6lb _Ejection fraction:_ 65-75% _Fractional shortening:_ 32% up to 5Kg 5-11.5Kg 11.6-22.9Kg 23-45Kg 45-57Kg Aortic Root 7-13 <17 13-22 17-27 17-27 LA diam 6-13 <23 24-38 33-47 37-40 RVID 10-17 7-15 7-15 7-18 8-17 LVIDd 12-22 <32 24-38 33-47 37-40 LVPW 2-4 3-6 5-7 6-8 7-8 IVS 2-4 3-6 5-7 6-8 7-8 BASIC MEASUREMENTS ADULT NORMAL Left ventricle LV internal dimension, ED, chordal *39.4 mm 43-52 level, PLAX LV internal dimension, ES, chordal 24.9 mm 23-38 level, PLAX Fractional shortening, chordal level, 37 % >29 PLAX LV posterior wall thickness, ED 12.6 mm IVS/LVPW ratio, ED 1.02 <1.3 Ventricular septum Septal thickness, ED 12.8 mm Aortic valve Leaflet separation 19 mm 15-26 Aorta Root diameter, ED 36 mm Left atrium Anterior-posterior dimension 18 mm Anterior-posterior dimension index 0.88 cm/m^2 <2.2 BASIC MEASUREMENTS ADULT NORMAL Aortic valve Leaflet separation 19 mm 15-26 DOPPLER MEASUREMENTS ADULT NORMAL Aortic valve Peak velocity, S 128 cm/s Mean velocity, S 80.5 cm/s VTI, S 17.1 cm Mean gradient, S 3 mm Hg Valve area, VTI 3.24 cm^2 Valve area index, VTI 1.59 cm^2/m^2 Valve area, Vmax 3.46 cm^2 Valve area index, Vmax 1.7 cm^2/m^2 Mitral valve Peak E-wave velocity 54.3 cm/s Peak A-wave velocity 75.5 cm/s Peak E/A ratio 0.7 Tricuspid valve Regurgitant peak velocity 244 cm/s Maximal regurgitant velocity 244 cm/s Pulmonic valve Peak velocity, S 73.5 cm/s LEGEND: Mean values are shown as u=mean value. Asterisk (*) yousif values outside specified normal range. Prepared and signed by Reddy Ahuja [id number]
--- NOTE | 2015-12-09 10:55 | HHI.IDPN ---
Subjective Subjective Remarks ID COVERAGE Notes reviewed D/W RN Sedated on the vent FiO2 down to 0.4 Making urine, creatinine slowly rising Temps ok Last (+) BC 12/05 with MSSA Repeat wound C/S pending Antibiotics Ancef Clindamycin Azactam Lines RIJ and other Line sites with no e/o infection Past Medical History RA HCV sp splenectomy Allergies: Coded Allergies: Compazine (Verified Allergy, Severe, VOMITING, RASH, 08/26/14) SLURRED SPEECH, MIGRAINES Demerol (Verified Allergy, Severe, VOMITING, 08/26/14) Levaquin (Verified Allergy, Severe, 08/26/14) Penicillin (Verified Allergy, Severe, Rash, 08/26/14) Phenergan (Verified Allergy, Severe, VOMITING, 08/26/14) Uncoded Allergies: ANTI-CONVULSIVES (Allergy, Severe, MIGRAINES, SLURRED SPEECH,, 01/23/14) Objective . Vital Signs Date Time Temp Pulse Resp B/P Pulse Ox O2 Delivery O2 Flow Rate FiO2 12/09/15 10:00 120 12/09/15 09:06 40 12/09/15 09:02 100 40 12/09/15 08:00 115 12/09/15 08:00 98.5 113 17 104/70 100 122/73 12/09/15 08:00 113 104/70 122/73 12/09/15 08:00 50 12/09/15 06:00 116 12/09/15 04:15 100 50 12/09/15 04:00 98.4 119 16 91/60 100 88/54 12/09/15 04:00 119 12/09/15 04:00 70 12/09/15 04:00 119 91/60 88/54 12/09/15 02:00 118 12/09/15 01:15 95 60 12/09/15 00:00 118 12/09/15 00:00 118 93/65 104/62 12/09/15 00:00 98.3 118 17 93/56 99 104/62 12/09/15 00:00 70 12/08/15 22:15 100 60 12/08/15 22:00 117 12/08/15 20:00 125 12/08/15 20:00 124 91/62 97/56 12/08/15 20:00 70 12/08/15 20:00 97.4 124 20 91/62 99 97/56 12/08/15 19:30 99 70 12/08/15 16:00 122 12/08/15 16:00 98.9 122 16 100/57 100 119/67 12/08/15 16:00 70 12/08/15 16:00 122 100/57 119/67 12/08/15 14:41 19 12/08/15 14:34 100 12/08/15 14:00 100 12/08/15 14:00 126 12/08/15 12:00 120 12/08/15 12:00 50 12/08/15 12:00 99.2 120 17 93/52 100 105/60 12/08/15 12:00 120 93/52 105/60 12/08/15 11:20 96 100 12/08/15 12/08/15 12/09/15 15:00 23:00 07:00 Intake Total 1009 ml 1127 ml 1596 ml Output Total 480 ml 450 ml 425 ml Balance 529 ml 677 ml 1171 ml IV Total 393 ml 407 ml 686 ml Tube Feeding 436 ml 90 ml 310 ml Packed Cells 580 ml Platelets 500 ml Tube Irrigant 180 ml Other 50 ml 100 ml Output Urine Total 380 ml 275 ml 200 ml Stool Total 100 ml 50 ml 0 ml Gastric Drainage Total 0 ml Drainage Total 125 ml 225 ml . Laboratory Tests Test 12/08/15 12/09/15 06:30 02:50 White Blood Count 10.0 TH/MM3 8.6 TH/MM3 Red Blood Count 2.26 MIL/MM3 2.50 MIL/MM3 Hemoglobin 7.2 GM/DL 7.7 GM/DL Hematocrit 21.3 % 22.0 % Mean Corpuscular Volume 93.9 FL 88.0 FL Mean Corpuscular Hemoglobin 31.7 PG 30.8 PG Mean Corpuscular Hemoglobin 33.8 % 35.0 % Concent Red Cell Distribution Width 16.7 % 19.3 % Platelet Count 54 TH/MM3 43 TH/MM3 Mean Platelet Volume 11.6 FL 11.6 FL Neutrophils (%) (Auto) 87.4 % 82.9 % Lymphocytes (%) (Auto) 11.1 % 12.8 % Monocytes (%) (Auto) 0.8 % 3.0 % Eosinophils (%) (Auto) 0.3 % 0.3 % Basophils (%) (Auto) 0.4 % 1.0 % Neutrophils # (Auto) 8.7 TH/MM3 7.1 TH/MM3 Lymphocytes # (Auto) 1.1 TH/MM3 1.1 TH/MM3 Monocytes # (Auto) 0.1 TH/MM3 0.3 TH/MM3 Eosinophils # (Auto) 0.0 TH/MM3 0.0 TH/MM3 Basophils # (Auto) 0.0 TH/MM3 0.1 TH/MM3 CBC Comment AUTO DIFF AUTO DIFF Differential Total Cells 100 100 Counted Neutrophils % (Manual) 77 % 60 % Band Neutrophils % 11 % 13 % Lymphocytes % 7 % 21 % Monocytes % 2 % 3 % Eosinophils % 1 % 1 % Basophils % 1 % Neutrophils # (Manual) 8.9 TH/MM3 6.5 TH/MM3 Myelocytes 1 % 1 % Nucleated Red Blood Cells 1 /100 WBC 1 /100 WBC Differential Comment FINAL DIFF FINAL DIFF MANUAL MANUAL Platelet Estimate LOW LOW Platelet Morphology Comment ENLARGED ENLARGED Target Cells 2+ 1+ Metamyelocytes 1 % Keratocytes OCC Laboratory Tests Test 12/08/15 12/09/15 12/09/15 06:30 02:50 08:41 Sodium Level 136 MEQ/L 139 MEQ/L Potassium Level 3.4 MEQ/L 3.9 MEQ/L Chloride Level 93 MEQ/L 100 MEQ/L Carbon Dioxide Level 35.4 MEQ/L 29.6 MEQ/L Anion Gap 8 MEQ/L 9 MEQ/L Blood Urea Nitrogen 63 MG/DL 65 MG/DL Creatinine 1.93 MG/DL 2.07 MG/DL Estimat Glomerular Filtration 37 ML/MIN 34 ML/MIN Rate Random Glucose 136 MG/DL 196 MG/DL Calcium Level 7.7 MG/DL 7.5 MG/DL Magnesium Level 2.0 MG/DL Total Bilirubin 3.4 MG/DL 2.8 MG/DL Aspartate Amino Transf 62 U/L 57 U/L (AST/SGOT) Alanine Aminotransferase 26 U/L 22 U/L (ALT/SGPT) Alkaline Phosphatase 333 U/L 351 U/L Total Protein 5.2 GM/DL 4.6 GM/DL Albumin 1.5 GM/DL 1.2 GM/DL Ammonia LESS THAN 10 MCMOL/L Microbiology Date/Time Procedure Status Source Growth 12/08/15 09:44 Aerobic Blood Culture Received Blood Peripheral Pending 12/08/15 09:44 Anaerobic Blood Culture Received Blood Peripheral Pending 12/08/15 09:44 Aerobic Blood Culture Received Blood Peripheral Pending 12/08/15 09:44 Anaerobic Blood Culture Received Blood Peripheral Pending 12/08/15 16:45 Gram Stain - Final Resulted Wound Arm 12/08/15 16:45 Wound Culture Resulted Wound Arm Pending 12/08/15 17:45 Gram Stain - Final Resulted Wound Elbow 12/08/15 17:45 Wound Culture Resulted Wound Elbow Pending 12/08/15 17:45 Acid Fast Stain Received Wound Elbow Pending 12/08/15 17:45 Mycobacterial Culture Received Wound Elbow Pending 12/08/15 17:45 Fungal Smear Received Wound Elbow Pending 12/08/15 17:45 Fungal Culture Received Wound Elbow Pending Imaging Last Impressions Chest X-Ray 12/08/15 0000 Signed Impressions: Service Date/Time: Tuesday, December 08, 2015 12:44 - CONCLUSION: No significant change has occurred. Arcadio Dickerson MD Abdomen X-Ray 12/06/15 0000 Signed Impressions: Service Date/Time: November 09:53 - CONCLUSION: Nonspecific KUB. Air is seen within a mildly distended colon but contrast is clearly seen in the rectum. Arnaldo Reyes MD Abdomen/Pelvis CT 12/04/15 0000 Signed Impressions: Service Date/Time: Friday, December 04, 2015 16:24 - CONCLUSION: 1. Mildly distended small bowel in the mid and lower abdomen. Contrast is clearly seen extending into the distal small bowel and ascending colon so a complete obstruction is not seen. A transition point is not seen. This pattern likely represents an ileus versus a partial obstruction. 2. Multiple nonobstructing renal stones. 3. Abnormal appearance of the spleen which appears to represent a splenule. It could be correlated if the patient has had either primary splenic removal or splenic injury and this is what is either left of the spleen or a developing splenule. This is likely of no significance. 4. Mild ascites. 5. Increased density within the gallbladder representing either tumefactive sludge or noncalcified stones. 6. Mild bilateral pleural effusions with prominent areas of lower lobe atelectasis or consolidation at the bases bilaterally. 7. Subacute to chronic bilateral rib fractures and multiple compression fractures in the lower thoracic and lumbar spine as described above. The patient does have a prior CT examination from 08/26/2014. All the compression deformities described above are new when compared to that scan. Arnaldo Reyes MD Head CT 12/02/15 1013 Signed Impressions: Service Date/Time: Wednesday, December 02, 2015 11:00 - CONCLUSION: 1. No intracranial abnormality is seen. 2. Air-fluid level in the right maxillary sinus. Arnaldo Reyes MD Physical Exam GENERAL: Sedated male, on the vent, NAD SKIN: + jaundice. Multiple wounds noted HEENT: Has scleral edema and icterus, ET in mouth. NO nasal drainage NECK: Trachea midline. Supple, nontender. CARDIOVASCULAR: ?systolic murmur in base of heart RESPIRATORY/CHEST: Extensive rhonchi on auscultation. Breath sounds equal bilaterally. GASTROINTESTINAL: Abdomen moderately to severely distended. No reaction to palpation GENITOURINARY: Sandoval catheter in place with clear, scrotum is very edematous. MUSCULOSKELETAL: Extremities no cyanosis, edema improving. Has wound on L eg with slough, and smaller one on his R leg with slough. Has wound vac in his RUE. NEUROLOGICAL: heavily sedated, unresponsive PSYCHIATRIC: unable to assess LINES: NO evidence of infection Assessment & Plan Remarks Septic shock with MODS E.coli bacteremia -source is unclear - suspect GI source - repeat BC is negative Severe SSTI of RUE, MSSA - S/P I and D Immunosuppressed PCN allergy, but no probs with Keflex -per mom Respiratory failure ARF/ DEIRDRE/ATN 2/2 sepsis - improving Abx associated diarrhea, C.diff negative Worsening fluid retention PLAN: Continue Clinda Continue Ancef Continue Azactam Follow new C/S Monitor progress Wound care to leg wounds D/W Delilah Tomlin MD Dec 09, 2015 10:55
[2015-12-09] MEDS: COLLAGENASE OINT 30 GM TUBE TOP SCH (11:00)
[2015-12-09] MEDS: MORPHINE SULFATE 4 MG/ML INJ IV PUSH PRN ×2 (11:30→20:05)
[2015-12-09 12:55] LABS: HEMATOCRIT 27.9 % (39.0-51.0); REVIEW FLAG FINAL
[2015-12-09] MEDS: RESP: ALBUTEROL 2.5 MG/IPRATROPIUM 0.5 MG NEB (PRN) NEB ×2 (16:40→20:47)
[2015-12-09 21:01] LABS: MEAN CORPUSCULAR HGB CONC 36.1 % (32.0-36.0)
[2015-12-10] VITALS (21 sets, daily range): BP systolic 95–119; BP diastolic 43–83; PULSE 118–133; RESP 16–19; TEMP 97.7–98.8; O2SAT 94–100
[2015-12-10] MEDS: MEDIUM DOSE INSULIN NOVOLIN REGULAR SUPPLEMENTAL SCALE SQ SCH ×6 (01:10→21:45)
[2015-12-10] MEDS: AZTREONAM INJ 2,000 MG in SODIUM CHLORIDE 0.9% INJ 100 ML IV SCH ×3 (01:11→18:23)
[2015-12-10] MEDS: MORPHINE SULFATE 4 MG/ML INJ IV PUSH PRN (01:26)
[2015-12-10] MEDS: CHLORHEXIDINE GLUCONATE 2 % 1 PACK (2 CLOTHS) TOP SCH (02:35)
[2015-12-10] MEDS: RESP: ALBUTEROL 2.5 MG/IPRATROPIUM 0.5 MG NEB (PRN) NEB (03:21)
[2015-12-10 05:11] LABS: BICARBONATE 33.3 MEQ/L (21.0-32.0); POTASSIUM 3.1 MEQ/L (3.5-5.1)
[2015-12-10 05:23] LABS: AUTOMATED NEUTROPHIL # 5.5 TH/MM3 (1.8-7.7); BASOPHIL # 0.1 TH/MM3 (0-0.2); BASOPHIL % 1.3 % (0.0-2.0); EOSINOPHIL % 0.5 % (0.0-4.0); HEMATOCRIT 25.2 % (39.0-51.0); LYMPH % 16.9 % (9.0-44.0); LYMPHOCYTE # 1.2 TH/MM3 (1.0-4.8); MEAN CELL VOLUME 86.6 FL (80.0-100.0); MEAN CORPUSCULAR HEMOGLOBIN 31.3 PG (27.0-34.0); MONO % 4.4 % (0.0-8.0); NEUT % 76.9 % (16.0-70.0); PLATELET COUNT 115 TH/MM3 (150-450); RED BLOOD COUNT 2.91 MIL/MM3 (4.50-5.90); RED CELL DISTRIBUTION WIDTH 16.5 % (11.6-17.2); WHITE BLOOD COUNT 7.1 TH/MM3 (4.0-11.0)
[2015-12-10 05:27] LABS: HEMO FLAGS AUTO DIFF
[2015-12-10] MEDS: ceFAZolin 2 GM PREMIX 50 ML IV SCH ×3 (05:45→23:31)
[2015-12-10] MEDS: CLINDAMYCIN INJ 900 MG in SODIUM CHLORIDE 0.9% INJ 100 ML IV SCH ×3 (05:45→19:36)
[2015-12-10 06:48] LABS: BANDS 10 % (0-6); BASOPHILS 2 % (0-2); CORRECTED NUCLEATED RBC 2 /100 WBC (0-0); EOSINOPHILS 2 % (0-4); NEUTROPHIL # MANUAL DIFF 5.6 TH/MM3 (1.8-7.7); POLYS (SEG NEUTROPHILS) 69 % (16-70); WBC DIFF SAMPLE 100
[2015-12-10 06:49] LABS: PLATELET ESTIMATE SMEAR LOW (NORMAL); PLATELET MORPHOLOGY NORMAL (NORMAL); SCAN/DIFF FINAL DIFF MANUAL
[2015-12-10] MEDS ORDERED: POTASSIUM CHLOR 40 MEQ PREMIX 100 ML IV ONE (07:30)
--- NOTE | 2015-12-10 07:33 | HHI.CCPN ---
Subjective Remarks/Hospital Course 55-year-old male brought by EMS with altered mental status. He has been confused for 2 days but this morning has been the worst. He has history of chronic opiate medications including methadone and morphine that he takes for pain management and hence they gave him Narcan IV which brought the GCS up to 13. The blood glucose was 74. He has open wounds from his right upper and bilateral lower extremities. He has history of hepatitis C. Last week he was pealing and eating shrimps. Bedside blood sugar was 76 in the ER. He was tachycardic in 1 teens and was intubated in the ED for airway protection. Admitted to ICU with sepsis due to Staph Aureus hand infection and E. Coli bacteriemia. 12/05 Patient remains sedated with Fentanyl and intubated. On Levophed 3 mics, Vasopressin 0.03 mics and Bicarb drip. T:99.8 TF placed on hold OGT to LIWS last night - gastric drainage 525ml overnight. 12/06 Patient is sedated with Fentanyl and intubated, On Levophed 3 mics, off vasopressin. Gastric output 400ml in 24 hrs. KUB abdomen yesterday mildly distended colon otherwise non specific KUB. 12/07 Patient is off sedation remains intubated tolerated CPAP for most day yesterday. Afebrile. on no drips, tolerating tube feeds. 12/08 Patient went to OR yesterday for debridement and irrigation of right forearm and wound VAC placement. Given 2U PRBC and 2u PLT yesterday and currently receiving 1of 2 u additional PRBC. Hgb 7.7, PLT 43 this morning. Patient also started on pressors now on Levophed 10 mics. Vasopressin 0.04 mics. On no sedation. 12/09 Patient remains intubated off pressors, Afebrile. Tolerating tube feeds. Afebrile. Objective - Vital Signs Date Time Temp Pulse Resp B/P Pulse Ox O2 Delivery O2 Flow Rate FiO2 12/10/15 06:00 120 12/10/15 04:15 100 40 12/10/15 04:00 98.3 17 98/59 109/55 12/06/15 20:39 Ventilator Intake and Output 12/09/15 12/09/15 12/10/15 08:00 16:00 00:00 Intake Total 1596 ml 1751 ml 1040 ml Output Total 425 ml 1020 ml 550 ml Balance 1171 ml 731 ml 490 ml Result Diagram: 12/10/15 0400 12/10/15 0400 Other Results Laboratory Tests Test 12/09/15 12/09/15 12/10/15 08:41 12:18 04:00 Ammonia LESS THAN 10 MCMOL/L Hemoglobin 9.9 GM/DL 9.1 GM/DL Hematocrit 27.9 % 25.2 % White Blood Count 7.1 TH/MM3 Red Blood Count 2.91 MIL/MM3 Mean Corpuscular Volume 86.6 FL Mean Corpuscular Hemoglobin 31.3 PG Mean Corpuscular Hemoglobin 36.1 % Concent Red Cell Distribution Width 16.5 % Platelet Count 115 TH/MM3 Mean Platelet Volume 9.7 FL Neutrophils (%) (Auto) 76.9 % Lymphocytes (%) (Auto) 16.9 % Monocytes (%) (Auto) 4.4 % Eosinophils (%) (Auto) 0.5 % Basophils (%) (Auto) 1.3 % Neutrophils # (Auto) 5.5 TH/MM3 Lymphocytes # (Auto) 1.2 TH/MM3 Monocytes # (Auto) 0.3 TH/MM3 Eosinophils # (Auto) 0.0 TH/MM3 Basophils # (Auto) 0.1 TH/MM3 CBC Comment AUTO DIFF Differential Total Cells 100 Counted Neutrophils % (Manual) 69 % Band Neutrophils % 10 % Lymphocytes % 13 % Monocytes % 4 % Eosinophils % 2 % Basophils % 2 % Neutrophils # (Manual) 5.6 TH/MM3 Nucleated Red Blood Cells 2 /100 WBC Differential Comment FINAL DIFF MANUAL Platelet Estimate LOW Platelet Morphology Comment NORMAL Basophilic Stippling FAINT Sodium Level 141 MEQ/L Potassium Level 3.1 MEQ/L Chloride Level 99 MEQ/L Carbon Dioxide Level 33.3 MEQ/L Anion Gap 9 MEQ/L Blood Urea Nitrogen 69 MG/DL Creatinine 1.87 MG/DL Estimat Glomerular Filtration 38 ML/MIN Rate Random Glucose 133 MG/DL Calcium Level 7.5 MG/DL Phosphorus Level 3.5 MG/DL Magnesium Level 2.0 MG/DL Imaging Last Impressions Chest X-Ray 12/08/15 0000 Signed Impressions: Service Date/Time: Tuesday, December 08, 2015 12:44 - CONCLUSION: No significant change has occurred. Arcadio Dickerson MD Abdomen X-Ray 12/06/15 0000 Signed Impressions: Service Date/Time: November 09:53 - CONCLUSION: Nonspecific KUB. Air is seen within a mildly distended colon but contrast is clearly seen in the rectum. Arnaldo Reyes MD Abdomen/Pelvis CT 12/04/15 0000 Signed Impressions: Service Date/Time: Friday, December 04, 2015 16:24 - CONCLUSION: 1. Mildly distended small bowel in the mid and lower abdomen. Contrast is clearly seen extending into the distal small bowel and ascending colon so a complete obstruction is not seen. A transition point is not seen. This pattern likely represents an ileus versus a partial obstruction. 2. Multiple nonobstructing renal stones. 3. Abnormal appearance of the spleen which appears to represent a splenule. It could be correlated if the patient has had either primary splenic removal or splenic injury and this is what is either left of the spleen or a developing splenule. This is likely of no significance. 4. Mild ascites. 5. Increased density within the gallbladder representing either tumefactive sludge or noncalcified stones. 6. Mild bilateral pleural effusions with prominent areas of lower lobe atelectasis or consolidation at the bases bilaterally. 7. Subacute to chronic bilateral rib fractures and multiple compression fractures in the lower thoracic and lumbar spine as described above. The patient does have a prior CT examination from 08/26/2014. All the compression deformities described above are new when compared to that scan. Arnaldo Reyes MD Head CT 12/02/15 1013 Signed Impressions: Service Date/Time: Wednesday, December 02, 2015 11:00 - CONCLUSION: 1. No intracranial abnormality is seen. 2. Air-fluid level in the right maxillary sinus. Arnaldo Reyes MD Objective Remarks GENERAL: Patient is 55yo critically ill intubated. SKIN: Warm and dry. HEAD: Normocephalic. EYES: No scleral icterus. No injection or drainage. NECK: Supple, trachea midline. No JVD or lymphadenopathy. Orally intubated CARDIOVASCULAR:Tachycardic without murmurs, gallops, or rubs. RESPIRATORY: Breath sounds equal bilaterally. No accessory muscle use. GASTROINTESTINAL: soft, non-tender, nondistended. MUSCULOSKELETAL: Generalized anasarca. Multiple open wounds in the lower extremity. RUE - s/p debridement and irrigation with wound VAC placement 12/07 BACK: Nontender without obvious deformity. No CVA tenderness. Neuro: intubated A/P Problem List: (1) History of splenectomy ICD Code: Z90.81 Status: Acute (2) Altered mental status ICD Code: R41.82 Status: Acute (3) Sepsis ICD Code: A41.9 Status: Acute (4) Respiratory failure ICD Code: J96.90 Status: Acute Assessment and Plan Neuro: - AMS due to sepsis - staph infection + E coli bacteriemia - Off sedation, monitor neuro status and avoid sedatives - 12/01 CT head negative, Ammonia level <10 on 12/08 CV - Off pressors Monitor HR and BP l keep MAP>65mmHg -Lactic acid 2.7 on 12/02, CVP monitoring Echo 12/07 EF 65-70%, grade I diastolic dysfunction Respiratory -Continue with vent support keep sat >92%- on ACV with RR 12, TV 500, PEEP: 10, FIO2 40% -Bronchodilators, ICU vent bundle. SBT daily as tarun. Check ABG ID - Severe sepsis - Necrotizing Fascitis - Staph Aureus - Debridement 12/01 p.m by hand surgery - E Coli - bacteriemia 12/01 - Wound cx 12/07 Staph Aureus Continue abx per ID ( IV Clinda, Azactam, Ancef) follow up on BC from 12/05...> 2/4 GPC, Staph Aureus Monitor for signs of infections ( Fever, WBC) C-diff PCR negative on 12/03 Wound care eval for multiple wound ulcers Renal -DEIRDRE Monitor renal function, I/O', avoid nephrotoxins. Renal function improving with Cr: 1.87 from 2.07 Will give KCL 40meq IV x1 for K 3.1 GI - Continue TF- Glucerna @ 55ml/hr Hem Anemia Thrombocytopenia- likely 2nd sepsis ( improving) - monitor CBC, s/p transfusion 1u PLT Phereses on 12/05 - s/p transfusion 2u PRBC, 2u PLT 12/07, receiving 2u PRBC -INR 1.3 12/08 -Hep PLT ab negative on 12/03 Endo - ISS with accuchecks On Pepcid for GI prophylaxis -SCD for DVT prophylaxis- not on chemical AC 2nd thrombocytopenia Patient remains critically ill with sepsis, DEIRDRE and mechanical ventilation. Lines: Right subclavian CVP placed 12/01 Critical Care: The total critical care time was 30 minutes. Time to perform other separately billable procedures was not included in the critical care time. Problem Qualifiers (1) Altered mental status: Qualified Code: R41.0 - Delirium (2) Sepsis: Qualified Code: A41.9 - Sepsis, due to unspecified organism (3) Respiratory failure: Qualified Code: J96.00 - Acute respiratory failure, unspecified whether with hypoxia or hypercapnia Colin Morton MD Dec 10, 2015 07:33
[2015-12-10] MEDS: CHLORHEXIDINE 0.12% (ORAL KIT) 15 ML CUP MT SCH ×2 (08:00→19:36)
[2015-12-10] MEDS: RESP: ALBUTEROL 2.5 MG/IPRATROPIUM 0.5 MG NEB (SCH) NEB ×3 (08:37→19:19)
[2015-12-10] MEDS: COLLAGENASE OINT 30 GM TUBE TOP SCH (09:00)
[2015-12-10 11:16] LABS: BLOOD GAS BASE EXCESS 5.9 mmol/L (-2-2); BLOOD GAS CARBOXYHEMOGLOBIN 1.6 % (0-4); BLOOD GAS HCO3 30 mmol/L (22-26); BLOOD GAS METHEMOGLOBIN 1.2 % (0-2); BLOOD GAS O2 HGB SATURATION 94 % (90-100); BLOOD GAS OXYGEN CONTENT 11.7 Vol % (12.0-20.0); BLOOD GAS PCO2 40 mmHg (38-42); BLOOD GAS PO2 81 mmHg (61-120); BLOOD GAS TOTAL HGB 8.8 G/DL (12.0-16.0); CRITICAL VALUE NO; OXYGEN DEVICE VENTILATOR; TEMP CORR TO 98.6
[2015-12-10 11:17] LABS: DRAW SITE ART LINE; FIO2 35 %; NUMBER OF ARTERIAL PUNCTURES 0; VENT SETTINGS CPAP+5/+15
[2015-12-10 11:18] LABS: STAT NO
--- NOTE | 2015-12-10 13:35 | HHI.IDPN ---
Subjective Subjective Remarks events noted Pt was taken to OR mergently for debridement Large amount of pus under pressure was encounted Pt now has VAC in place off pressors Clinically more stable On vent FiO2 down Antibiotics Ancef Clindamycin Azactam Lines RIJ and other Line sites with no e/o infection Past Medical History RA HCV sp splenectomy Allergies: Coded Allergies: Compazine (Verified Allergy, Severe, VOMITING, RASH, 08/26/14) SLURRED SPEECH, MIGRAINES Demerol (Verified Allergy, Severe, VOMITING, 08/26/14) Levaquin (Verified Allergy, Severe, 08/26/14) Penicillin (Verified Allergy, Severe, Rash, 08/26/14) Phenergan (Verified Allergy, Severe, VOMITING, 08/26/14) Uncoded Allergies: ANTI-CONVULSIVES (Allergy, Severe, MIGRAINES, SLURRED SPEECH,, 01/23/14) Objective . Vital Signs Date Time Temp Pulse Resp B/P Pulse Ox O2 Delivery O2 Flow Rate FiO2 12/10/15 12:25 100 35 12/10/15 12:08 98.3 132 17 98/59 100 119/83 12/10/15 12:07 132 12/10/15 12:05 60 12/10/15 10:00 131 12/10/15 08:25 100 35 12/10/15 06:00 120 12/10/15 04:15 100 40 12/10/15 04:00 98.3 121 17 98/59 100 109/55 12/10/15 04:00 121 12/10/15 04:00 40 12/10/15 02:00 124 12/10/15 01:15 100 40 12/10/15 00:00 118 12/10/15 00:00 118 97/60 104/55 12/10/15 00:00 40 12/10/15 00:00 97.7 118 16 97/60 100 104/55 12/09/15 22:05 100 40 12/09/15 22:00 119 12/09/15 20:00 40 12/09/15 20:00 122 12/09/15 20:00 97.9 122 16 93/52 100 96/51 12/09/15 20:00 122 93/52 96/51 12/09/15 19:50 100 40 12/09/15 18:00 123 12/09/15 16:37 98 40 10/23/16 16:00 40 12/09/15 16:00 117 106/66 119/62 12/09/15 16:00 98.2 117 15 106/66 98 119/62 12/09/15 16:00 117 12/09/15 14:00 120 12/09/15 12/09/15 12/10/15 15:00 23:00 07:00 Intake Total 1751 ml 1040 ml 828 ml Output Total 1020 ml 550 ml 650 ml Balance 731 ml 490 ml 178 ml IV Total 573 ml 512 ml 317 ml Tube Feeding 383 ml 428 ml 411 ml Packed Cells 675 ml Tube Irrigant 120 ml Other 100 ml 100 ml Output Urine Total 575 ml 400 ml 450 ml Stool Total 420 ml 100 ml 200 ml Drainage Total 25 ml 50 ml 0 ml . Laboratory Tests Test 12/09/15 12/09/15 12/10/15 02:50 12:18 04:00 White Blood Count 8.6 TH/MM3 7.1 TH/MM3 Red Blood Count 2.50 MIL/MM3 2.91 MIL/MM3 Hemoglobin 7.7 GM/DL 9.9 GM/DL 9.1 GM/DL Hematocrit 22.0 % 27.9 % 25.2 % Mean Corpuscular Volume 88.0 FL 86.6 FL Mean Corpuscular Hemoglobin 30.8 PG 31.3 PG Mean Corpuscular Hemoglobin 35.0 % 36.1 % Concent Red Cell Distribution Width 19.3 % 16.5 % Platelet Count 43 TH/MM3 115 TH/MM3 Mean Platelet Volume 11.6 FL 9.7 FL Neutrophils (%) (Auto) 82.9 % 76.9 % Lymphocytes (%) (Auto) 12.8 % 16.9 % Monocytes (%) (Auto) 3.0 % 4.4 % Eosinophils (%) (Auto) 0.3 % 0.5 % Basophils (%) (Auto) 1.0 % 1.3 % Neutrophils # (Auto) 7.1 TH/MM3 5.5 TH/MM3 Lymphocytes # (Auto) 1.1 TH/MM3 1.2 TH/MM3 Monocytes # (Auto) 0.3 TH/MM3 0.3 TH/MM3 Eosinophils # (Auto) 0.0 TH/MM3 0.0 TH/MM3 Basophils # (Auto) 0.1 TH/MM3 0.1 TH/MM3 CBC Comment AUTO DIFF AUTO DIFF Differential Total Cells 100 100 Counted Neutrophils % (Manual) 60 % 69 % Band Neutrophils % 13 % 10 % Lymphocytes % 21 % 13 % Monocytes % 3 % 4 % Eosinophils % 1 % 2 % Neutrophils # (Manual) 6.5 TH/MM3 5.6 TH/MM3 Metamyelocytes 1 % Myelocytes 1 % Nucleated Red Blood Cells 1 /100 WBC 2 /100 WBC Differential Comment FINAL DIFF FINAL DIFF MANUAL MANUAL Platelet Estimate LOW LOW Platelet Morphology Comment ENLARGED NORMAL Target Cells 1+ Keratocytes OCC Basophils % 2 % Basophilic Stippling FAINT Laboratory Tests Test 12/09/15 12/09/15 12/10/15 02:50 08:41 04:00 Sodium Level 139 MEQ/L 141 MEQ/L Potassium Level 3.9 MEQ/L 3.1 MEQ/L Chloride Level 100 MEQ/L 99 MEQ/L Carbon Dioxide Level 29.6 MEQ/L 33.3 MEQ/L Anion Gap 9 MEQ/L 9 MEQ/L Blood Urea Nitrogen 65 MG/DL 69 MG/DL Creatinine 2.07 MG/DL 1.87 MG/DL Estimat Glomerular Filtration 34 ML/MIN 38 ML/MIN Rate Random Glucose 196 MG/DL 133 MG/DL Calcium Level 7.5 MG/DL 7.5 MG/DL Total Bilirubin 2.8 MG/DL Aspartate Amino Transf 57 U/L (AST/SGOT) Alanine Aminotransferase 22 U/L (ALT/SGPT) Alkaline Phosphatase 351 U/L Total Protein 4.6 GM/DL Albumin 1.2 GM/DL Ammonia LESS THAN 10 MCMOL/L Phosphorus Level 3.5 MG/DL Magnesium Level 2.0 MG/DL Microbiology Date/Time Procedure Status Source Growth 12/08/15 09:44 Aerobic Blood Culture - Preliminary Resulted Blood Peripheral NO GROWTH IN 2 DAYS 12/08/15 09:44 Anaerobic Blood Culture - Preliminary Resulted Blood Peripheral NO GROWTH IN 2 DAYS 12/08/15 09:44 Aerobic Blood Culture - Preliminary Resulted Blood Peripheral NO GROWTH IN 2 DAYS 12/08/15 09:44 Anaerobic Blood Culture - Preliminary Resulted Blood Peripheral NO GROWTH IN 2 DAYS 12/08/15 16:45 Gram Stain - Final Complete Wound Arm 12/08/15 16:45 Wound Culture - Final Complete Staphylococcus Aureus 12/08/15 17:45 Gram Stain - Final Complete Wound Elbow 12/08/15 17:45 Wound Culture - Final Complete Staphylococcus Aureus 12/08/15 17:45 Acid Fast Stain Received Wound Elbow Pending 12/08/15 17:45 Mycobacterial Culture Received Wound Elbow Pending 12/08/15 17:45 Fungal Smear Received Wound Elbow Pending 12/08/15 17:45 Fungal Culture Received Wound Elbow Pending Imaging Last Impressions Chest X-Ray 12/08/15 0000 Signed Impressions: Service Date/Time: Tuesday, December 08, 2015 12:44 - CONCLUSION: No significant change has occurred. Arcadio Dickerson MD Abdomen X-Ray 12/06/15 0000 Signed Impressions: Service Date/Time: November 09:53 - CONCLUSION: Nonspecific KUB. Air is seen within a mildly distended colon but contrast is clearly seen in the rectum. Arnaldo Reyes MD Abdomen/Pelvis CT 12/04/15 0000 Signed Impressions: Service Date/Time: Friday, December 04, 2015 16:24 - CONCLUSION: 1. Mildly distended small bowel in the mid and lower abdomen. Contrast is clearly seen extending into the distal small bowel and ascending colon so a complete obstruction is not seen. A transition point is not seen. This pattern likely represents an ileus versus a partial obstruction. 2. Multiple nonobstructing renal stones. 3. Abnormal appearance of the spleen which appears to represent a splenule. It could be correlated if the patient has had either primary splenic removal or splenic injury and this is what is either left of the spleen or a developing splenule. This is likely of no significance. 4. Mild ascites. 5. Increased density within the gallbladder representing either tumefactive sludge or noncalcified stones. 6. Mild bilateral pleural effusions with prominent areas of lower lobe atelectasis or consolidation at the bases bilaterally. 7. Subacute to chronic bilateral rib fractures and multiple compression fractures in the lower thoracic and lumbar spine as described above. The patient does have a prior CT examination from 08/26/2014. All the compression deformities described above are new when compared to that scan. Arnaldo Reyes MD Head CT 12/02/15 1013 Signed Impressions: Service Date/Time: Wednesday, December 02, 2015 11:00 - CONCLUSION: 1. No intracranial abnormality is seen. 2. Air-fluid level in the right maxillary sinus. Arnaldo Reyes MD Physical Exam GENERAL: Sedated male, on the vent, NAD SKIN: + jaundice. Multiple wounds noted HEENT: Has scleral edema and icterus, ET in mouth. NO nasal drainage NECK: Trachea midline. Supple, nontender. CARDIOVASCULAR: ?systolic murmur in base of heart RESPIRATORY/CHEST: Extensive rhonchi on auscultation. Breath sounds equal bilaterally. GASTROINTESTINAL: Abdomen moderately to severely distended. No reaction to palpation GENITOURINARY: Sandoval catheter in place with clear, scrotum is very edematous. MUSCULOSKELETAL: Extremities no cyanosis, edema 2-3+. Has wound on L eg with slough, and smaller one on his R leg with slough. Has wound vac in his RUE with serosanf d/c compartments appear soft Hand edematous but appears to be well perfused Able to move fingers Diffuse soft pitting edema cw anasarca NEUROLOGICAL: awake ; makes eye contact and follows commands PSYCHIATRIC: unable to assess LINES: NO evidence of infection Assessment & Plan Remarks Septic shock with MODS - source is RUE severe nec fasc 2/2 MSSA Severe SSTI of RUE, MSSA - S/P I and D x 3 E.coli bacteremia -source is unclear - suspect GI source - repeat BC is negative Immunosuppressed PCN allergy, but no probs with Keflex -per mom Respiratory failure ARF/ DEIRDRE/ATN 2/2 sepsis - improving Abx associated diarrhea, C.diff negative Worsening fluid retention Critical hypoalbumenemia PLAN: Continue Clinda Continue Ancef Continue Azactam Follow new C/S Monitor progress Wound care to leg wounds needs improvemnt of his protein nourishement status D/W Yennifer Stapleton,Argelia Ronquillo MD Dec 10, 2015 13:35
--- NOTE | 2015-12-10 14:40 | PD.PLAS.PN ---
Subjective Remarks The patient is intubated Vital Signs Date Time Temp Pulse Resp B/P Pulse Ox O2 Delivery O2 Flow Rate FiO2 12/10/15 12:25 100 35 12/10/15 12:08 98.3 132 17 98/59 100 119/83 12/10/15 12:07 132 12/10/15 12:05 60 12/10/15 10:00 131 12/10/15 08:25 100 35 12/10/15 06:00 120 12/10/15 04:15 100 40 12/10/15 04:00 98.3 121 17 98/59 100 109/55 12/10/15 04:00 121 12/10/15 04:00 40 12/10/15 02:00 124 12/10/15 01:15 100 40 12/10/15 00:00 118 12/10/15 00:00 118 97/60 104/55 12/10/15 00:00 40 12/10/15 00:00 97.7 118 16 97/60 100 104/55 12/09/15 22:05 100 40 12/09/15 22:00 119 12/09/15 20:00 40 12/09/15 20:00 122 12/09/15 20:00 97.9 122 16 93/52 100 96/51 12/09/15 20:00 122 93/52 96/51 12/09/15 19:50 100 40 12/09/15 18:00 123 12/09/15 16:37 98 40 12/09/15 16:00 40 12/09/15 16:00 117 106/66 119/62 12/09/15 16:00 98.2 117 15 106/66 98 119/62 12/09/15 16:00 117 I/O 12/09/15 12/09/15 12/09/15 12/10/15 12/10/15 12/10/15 07:00 15:00 23:00 07:00 15:00 23:00 Intake Total 1596 ml 1751 ml 1040 ml 828 ml Output Total 425 ml 1020 ml 550 ml 650 ml Balance 1171 ml 731 ml 490 ml 178 ml IV Total 686 ml 573 ml 512 ml 317 ml Tube Feeding 310 ml 383 ml 428 ml 411 ml Packed Cells 675 ml Platelets 500 ml Tube Irrigant 120 ml Other 100 ml 100 ml 100 ml Output Urine Total 200 ml 575 ml 400 ml 450 ml Stool Total 0 ml 420 ml 100 ml 200 ml Drainage Total 225 ml 25 ml 50 ml 0 ml Laboratory Tests Test 12/10/15 12/10/15 04:00 11:08 White Blood Count 7.1 Red Blood Count 2.91 Hemoglobin 9.1 Hematocrit 25.2 Mean Corpuscular Volume 86.6 Mean Corpuscular Hemoglobin 31.3 Mean Corpuscular Hemoglobin 36.1 Concent Red Cell Distribution Width 16.5 Platelet Count 115 Mean Platelet Volume 9.7 Neutrophils (%) (Auto) 76.9 Lymphocytes (%) (Auto) 16.9 Monocytes (%) (Auto) 4.4 Eosinophils (%) (Auto) 0.5 Basophils (%) (Auto) 1.3 Neutrophils # (Auto) 5.5 Lymphocytes # (Auto) 1.2 Monocytes # (Auto) 0.3 Eosinophils # (Auto) 0.0 Basophils # (Auto) 0.1 CBC Comment AUTO DIFF Differential Total Cells 100 Counted Neutrophils % (Manual) 69 Band Neutrophils % 10 Lymphocytes % 13 Monocytes % 4 Eosinophils % 2 Basophils % 2 Neutrophils # (Manual) 5.6 Nucleated Red Blood Cells 2 Differential Comment FINAL DIFF MANUAL Platelet Estimate LOW Platelet Morphology Comment NORMAL Basophilic Stippling FAINT Sodium Level 141 Potassium Level 3.1 Chloride Level 99 Carbon Dioxide Level 33.3 Anion Gap 9 Blood Urea Nitrogen 69 Creatinine 1.87 Estimat Glomerular Filtration 38 Rate Random Glucose 133 Calcium Level 7.5 Phosphorus Level 3.5 Magnesium Level 2.0 Blood Gas Puncture Site ART LINE Blood Gas Patient Temperature 98.6 Blood Gas HCO3 30 Blood Gas Base Excess 5.9 Blood Gas Oxygen Saturation 94 Arterial Blood pH 7.48 Arterial Blood Partial 40 Pressure CO2 Arterial Blood Partial 81 Pressure O2 Arterial Blood Oxygen Content 11.7 Arterial Blood 1.6 Carboxyhemoglobin Arterial Blood Methemoglobin 1.2 Blood Gas Hemoglobin 8.8 Oxygen Delivery Device VENTILATOR Blood Gas Ventilator Setting CPAP+5/+15 Blood Gas Inspired Oxygen 35 Date/Time Procedure Status Source Growth 12/08/15 17:45 Gram Stain - Final Complete Wound Elbow 12/08/15 17:45 Wound Culture - Final Complete Staphylococcus Aureus 12/08/15 17:45 Fungal Smear Received Wound Elbow Pending 12/08/15 17:45 Fungal Culture Received Wound Elbow Pending 12/08/15 17:45 Acid Fast Stain Received Wound Elbow Pending 12/08/15 17:45 Mycobacterial Culture Received Wound Elbow Pending 12/08/15 09:44 Aerobic Blood Culture - Preliminary Resulted Blood Peripheral NO GROWTH IN 2 DAYS 12/08/15 09:44 Anaerobic Blood Culture - Preliminary Resulted Blood Peripheral NO GROWTH IN 2 DAYS 12/06/15 10:48 Aerobic Blood Culture - Final Resulted Blood Peripheral Staphylococcus Aureus 12/06/15 10:48 Anaerobic Blood Culture - Preliminary Resulted Blood Peripheral NO GROWTH IN 4 DAYS Result Diagram: 12/10/15 0400 12/10/15 0400 Exam Findings Fingers of right hand warm and well perfused. The wound vac is in place. Plan Impression: Right upper extremity is stable at the present time. He has improved over the weekend after the debridement and application of the wound vac by Dr. Chavez. Plan: Wound care. Barbara Pedro MD Dec 10, 2015 14:40
[2015-12-10] MEDS: fentaNYL 2,500 MCG/NS 250 ML IV SCH (21:41)
[2015-12-10] MEDS: VASOPRESSIN INJ 40 UNITS in DEXTROSE 5% IN WATER 100ML INJ 98 ML IV SCH ×2 (23:54)
[2015-12-11] VITALS (17 sets, daily range): BP systolic 93–109; BP diastolic 45–60; PULSE 118–132; RESP 16–25; TEMP 98.4–99.4; O2SAT 92–100
[2015-12-11] MEDS: AZTREONAM INJ 2,000 MG in SODIUM CHLORIDE 0.9% INJ 100 ML IV SCH ×4 (00:13→22:30)
[2015-12-11] MEDS: RESP: ALBUTEROL 2.5 MG/IPRATROPIUM 0.5 MG NEB (SCH) NEB ×4 (00:41→21:07)
[2015-12-11] MEDS: CHLORHEXIDINE GLUCONATE 2 % 1 PACK (2 CLOTHS) TOP SCH ×2 (02:31→20:51)
[2015-12-11] MEDS: MEDIUM DOSE INSULIN NOVOLIN REGULAR SUPPLEMENTAL SCALE SQ SCH ×6 (02:31→22:20)
[2015-12-11 04:34] LABS: AUTOMATED NEUTROPHIL # 4.4 TH/MM3 (1.8-7.7); BASOPHIL # 0.1 TH/MM3 (0-0.2); BASOPHIL % 1.3 % (0.0-2.0); EOSINOPHIL # 0.1 TH/MM3 (0-0.4); EOSINOPHIL % 1.2 % (0.0-4.0); HEMATOCRIT 24.2 % (39.0-51.0); LYMPH % 22.5 % (9.0-44.0); LYMPHOCYTE # 1.5 TH/MM3 (1.0-4.8); MEAN CELL VOLUME 88.2 FL (80.0-100.0); MEAN CORPUSCULAR HEMOGLOBIN 30.8 PG (27.0-34.0); MEAN CORPUSCULAR HGB CONC 34.9 % (32.0-36.0); PLATELET COUNT 114 TH/MM3 (150-450); RED BLOOD COUNT 2.74 MIL/MM3 (4.50-5.90); RED CELL DISTRIBUTION WIDTH 16.3 % (11.6-17.2); WHITE BLOOD COUNT 6.5 TH/MM3 (4.0-11.0)
[2015-12-11 04:36] LABS: HEMO FLAGS AUTO DIFF
[2015-12-11 05:04] LABS: BICARBONATE 33.2 MEQ/L (21.0-32.0); POTASSIUM 3.2 MEQ/L (3.5-5.1)
[2015-12-11] MEDS: CLINDAMYCIN INJ 900 MG in SODIUM CHLORIDE 0.9% INJ 100 ML IV SCH ×3 (05:19→22:45)
[2015-12-11] MEDS: ceFAZolin 2 GM PREMIX 50 ML IV SCH ×3 (06:51→22:20)
[2015-12-11 07:03] LABS: BANDS 12 % (0-6); CORRECTED NUCLEATED RBC 4 /100 WBC (0-0); EOSINOPHILS 3 % (0-4); NEUTROPHIL # MANUAL DIFF 4.4 TH/MM3 (1.8-7.7); PLATELET ESTIMATE SMEAR LOW (NORMAL); PLATELET MORPHOLOGY NORMAL (NORMAL); POLYS (SEG NEUTROPHILS) 55 % (16-70); SCAN/DIFF FINAL DIFF MANUAL; WBC DIFF SAMPLE 100
[2015-12-11] MEDS: COLLAGENASE OINT 30 GM TUBE TOP SCH (09:00)
[2015-12-11] MEDS ORDERED: POTASSIUM CHLOR 20 MEQ PREMIX 100 ML IV PRN ×2 (09:15)
[2015-12-11] MEDS ORDERED: SODIUM PHOSPHATE INJ 30 MMOL in SODIUM CHLOR 0.9% 250 ML INJ 240 ML IV PRN (09:15)
[2015-12-11] MEDS ORDERED: POTASSIUM PHOSPHATE MONOBASIC 500 MG TAB PO PRN (09:15)
[2015-12-11] MEDS ORDERED: POTASSIUM PHOSPHATE INJ 30 MMOL in SODIUM CHLOR 0.9% 250 ML INJ 250 ML IV PRN (09:15)
[2015-12-11] MEDS ORDERED: POTASSIUM PHOSPHATE MONOBASIC 500 MG TAB PO/TUBE PRN (09:15)
[2015-12-11] MEDS ORDERED: MAGNESIUM SULFATE INJ 4 GM in SODIUM CHLORIDE 0.9% INJ 92 ML IV PRN (09:15)
[2015-12-11] MEDS ORDERED: POTASSIUM CL 40 MEQ/30 ML LIQ UDC PO/TUBE PRN ×2 (09:15)
[2015-12-11] MEDS ORDERED: MAGNESIUM OXIDE 400 MG TAB PO PRN (09:15)
[2015-12-11] MEDS ORDERED: POTASSIUM CHLOR 40 MEQ PREMIX 100 ML IV PRN (09:15)
--- NOTE | 2015-12-11 09:23 | HHI.CCPN ---
Subjective Remarks/Hospital Course 55-year-old male brought by EMS with altered mental status. He has been confused for 2 days but this morning has been the worst. He has history of chronic opiate medications including methadone and morphine that he takes for pain management and hence they gave him Narcan IV which brought the GCS up to 13. The blood glucose was 74. He has open wounds from his right upper and bilateral lower extremities. He has history of hepatitis C. Last week he was pealing and eating shrimps. Bedside blood sugar was 76 in the ER. He was tachycardic in 1 teens and was intubated in the ED for airway protection. Admitted to ICU with sepsis due to Staph Aureus hand infection and E. Coli bacteriemia. 12/05 Patient remains sedated with Fentanyl and intubated. On Levophed 3 mics, Vasopressin 0.03 mics and Bicarb drip. T:99.8 TF placed on hold OGT to LIWS last night - gastric drainage 525ml overnight. 12/06 Patient is sedated with Fentanyl and intubated, On Levophed 3 mics, off vasopressin. Gastric output 400ml in 24 hrs. KUB abdomen yesterday mildly distended colon otherwise non specific KUB. 12/07 Patient is off sedation remains intubated tolerated CPAP for most day yesterday. Afebrile. on no drips, tolerating tube feeds. 12/08 Patient went to OR yesterday for debridement and irrigation of right forearm and wound VAC placement. Given 2U PRBC and 2u PLT yesterday and currently receiving 1of 2 u additional PRBC. Hgb 7.7, PLT 43 this morning. Patient also started on pressors now on Levophed 10 mics. Vasopressin 0.04 mics. On no sedation. 12/09 Patient remains intubated off pressors, Afebrile. Tolerating tube feeds. Afebrile. 12/10 Patient is sedated with Fentanyl and intubated. Awake and follows commands off sedation. Afebrile. Objective - Vital Signs Date Time Temp Pulse Resp B/P Pulse Ox O2 Delivery O2 Flow Rate FiO2 12/11/15 08:21 100 Ventilator 35 12/11/15 06:00 126 12/11/15 04:00 99.4 20 93/54 104/53 Intake and Output 12/10/15 12/10/15 12/10/15 07:59 15:59 23:59 Intake Total 828 ml 425 ml 1532 ml Output Total 650 ml 535 ml 550 ml Balance 178 ml -110 ml 982 ml Result Diagram: 12/11/151 12/11/15420 Other Results Laboratory Tests Test 12/10/15 12/11/15 11:08 04:21 Blood Gas Puncture Site ART LINE Blood Gas Patient Temperature 98.6 Blood Gas HCO3 30 mmol/L Blood Gas Base Excess 5.9 mmol/L Blood Gas Oxygen Saturation 94 % Arterial Blood pH 7.48 Arterial Blood Partial 40 mmHg Pressure CO2 Arterial Blood Partial 81 mmHg Pressure O2 Arterial Blood Oxygen Content 11.7 Vol % Arterial Blood 1.6 % Carboxyhemoglobin Arterial Blood Methemoglobin 1.2 % Blood Gas Hemoglobin 8.8 G/DL Oxygen Delivery Device VENTILATOR Blood Gas Ventilator Setting CPAP+5/+15 Blood Gas Inspired Oxygen 35 % White Blood Count 6.5 TH/MM3 Red Blood Count 2.74 MIL/MM3 Hemoglobin 8.4 GM/DL Hematocrit 24.2 % Mean Corpuscular Volume 88.2 FL Mean Corpuscular Hemoglobin 30.8 PG Mean Corpuscular Hemoglobin 34.9 % Concent Red Cell Distribution Width 16.3 % Platelet Count 114 TH/MM3 Mean Platelet Volume 9.6 FL Neutrophils (%) (Auto) 68.0 % Lymphocytes (%) (Auto) 22.5 % Monocytes (%) (Auto) 7.0 % Eosinophils (%) (Auto) 1.2 % Basophils (%) (Auto) 1.3 % Neutrophils # (Auto) 4.4 TH/MM3 Lymphocytes # (Auto) 1.5 TH/MM3 Monocytes # (Auto) 0.5 TH/MM3 Eosinophils # (Auto) 0.1 TH/MM3 Basophils # (Auto) 0.1 TH/MM3 CBC Comment AUTO DIFF Differential Total Cells 100 Counted Neutrophils % (Manual) 55 % Band Neutrophils % 12 % Lymphocytes % 25 % Monocytes % 5 % Eosinophils % 3 % Neutrophils # (Manual) 4.4 TH/MM3 Nucleated Red Blood Cells 4 /100 WBC Differential Comment FINAL DIFF MANUAL Platelet Estimate LOW Platelet Morphology Comment NORMAL Sodium Level 145 MEQ/L Potassium Level 3.2 MEQ/L Chloride Level 104 MEQ/L Carbon Dioxide Level 33.2 MEQ/L Anion Gap 8 MEQ/L Blood Urea Nitrogen 69 MG/DL Creatinine 1.62 MG/DL Estimat Glomerular Filtration 45 ML/MIN Rate Random Glucose 141 MG/DL Calcium Level 7.7 MG/DL Imaging Last Impressions Chest X-Ray 12/08/15 0000 Signed Impressions: Service Date/Time: Tuesday, December 08, 2015 12:44 - CONCLUSION: No significant change has occurred. Arcadio Dickerson MD Abdomen X-Ray 12/06/15 0000 Signed Impressions: Service Date/Time: November 09:53 - CONCLUSION: Nonspecific KUB. Air is seen within a mildly distended colon but contrast is clearly seen in the rectum. Arnaldo Reyes MD Abdomen/Pelvis CT 12/04/15 0000 Signed Impressions: Service Date/Time: Friday, December 04, 2015 16:24 - CONCLUSION: 1. Mildly distended small bowel in the mid and lower abdomen. Contrast is clearly seen extending into the distal small bowel and ascending colon so a complete obstruction is not seen. A transition point is not seen. This pattern likely represents an ileus versus a partial obstruction. 2. Multiple nonobstructing renal stones. 3. Abnormal appearance of the spleen which appears to represent a splenule. It could be correlated if the patient has had either primary splenic removal or splenic injury and this is what is either left of the spleen or a developing splenule. This is likely of no significance. 4. Mild ascites. 5. Increased density within the gallbladder representing either tumefactive sludge or noncalcified stones. 6. Mild bilateral pleural effusions with prominent areas of lower lobe atelectasis or consolidation at the bases bilaterally. 7. Subacute to chronic bilateral rib fractures and multiple compression fractures in the lower thoracic and lumbar spine as described above. The patient does have a prior CT examination from 08/26/2014. All the compression deformities described above are new when compared to that scan. Arnaldo Reyes MD Head CT 12/02/15 1013 Signed Impressions: Service Date/Time: Wednesday, December 02, 2015 11:00 - CONCLUSION: 1. No intracranial abnormality is seen. 2. Air-fluid level in the right maxillary sinus. Arnaldo Reyes MD Objective Remarks GENERAL: Patient is 55yo critically ill intubated. SKIN: Warm and dry. HEAD: Normocephalic. EYES: No scleral icterus. No injection or drainage. NECK: Supple, trachea midline. No JVD or lymphadenopathy. Orally intubated CARDIOVASCULAR:Tachycardic without murmurs, gallops, or rubs. RESPIRATORY: Breath sounds equal bilaterally. No accessory muscle use. GASTROINTESTINAL: soft, non-tender, nondistended. MUSCULOSKELETAL: Generalized anasarca. Multiple open wounds in the lower extremity. RUE - s/p debridement and irrigation with wound VAC placement 12/07 BACK: Nontender without obvious deformity. No CVA tenderness. Neuro: intubated A/P Problem List: (1) History of splenectomy ICD Code: Z90.81 Status: Acute (2) Altered mental status ICD Code: R41.82 Status: Acute (3) Sepsis ICD Code: A41.9 Status: Acute (4) Respiratory failure ICD Code: J96.90 Status: Acute Assessment and Plan Neuro: - AMS due to sepsis - staph infection + E coli bacteriemia - On Fentanyl infusion for sedation,, monitor neuro status - 12/01 CT head negative, Ammonia level <10 on 12/08 CV - Off pressors Monitor HR and BP l keep MAP>65mmHg -Lactic acid 2.7 on 12/02, CVP monitoring Echo 12/07 EF 65-70%, grade I diastolic dysfunction Respiratory -Continue with vent support keep sat >92%- on ACV with RR 12, TV 500, PEEP: 10, FIO2 40% -Bronchodilators, ICU vent bundle. SBT daily as tarun. ID - Severe sepsis - Necrotizing Fascitis - Staph Aureus -s/p debridement and application of the wound vac by Dr. Chavez on 12/09 - Debridement 12/01 p.m by hand surgery - E Coli - bacteriemia 12/01 - Wound cx 12/07 Staph Aureus Continue abx per ID ( IV Clinda, Azactam, Ancef) follow up on BC from 12/05...> 2/4 GPC, Staph Aureus Monitor for signs of infections ( Fever, WBC) C-diff PCR negative on 12/03 Wound care on case for multiple wound ulcers Renal -DEIRDRE Monitor renal function, I/O', electrolytes replacement per protocol Renal function improving with Cr: 1.62 from 1.87 Will need K replacement today GI - Continue TF- Glucerna @ 55ml/hr Hem Anemia Thrombocytopenia- likely 2nd sepsis ( improving) - monitor CBC, s/p transfusion 1u PLT Phereses on 12/05 - s/p transfusion 2u PRBC, 2u PLT 12/07 -INR 1.3 12/08 -Hep PLT ab negative on 12/03 Endo - ISS with accuchecks On Pepcid for GI prophylaxis -SCD for DVT prophylaxis- not on chemical AC 2nd thrombocytopenia Lines: Right subclavian CVP placed 12/01 Critical Care: The total critical care time was 30 minutes. Time to perform other separately billable procedures was not included in the critical care time. Problem Qualifiers (1) Altered mental status: Qualified Code: R41.0 - Delirium (2) Sepsis: Qualified Code: A41.9 - Sepsis, due to unspecified organism (3) Respiratory failure: Qualified Code: J96.00 - Acute respiratory failure, unspecified whether with hypoxia or hypercapnia Colin Morton MD Dec 11, 2015 09:23
--- NOTE | 2015-12-11 14:38 | HHI.IDPN ---
Subjective Subjective Remarks clinically stable Tolerated 8 hrs of CPAP yday afebrile off pressors Antibiotics Ancef Clindamycin Azactam Lines RIJ and other Line sites with no e/o infection Past Medical History RA HCV sp splenectomy Allergies: Coded Allergies: Compazine (Verified Allergy, Severe, VOMITING, RASH, 08/26/14) SLURRED SPEECH, MIGRAINES Demerol (Verified Allergy, Severe, VOMITING, 08/26/14) Levaquin (Verified Allergy, Severe, 08/26/14) Penicillin (Verified Allergy, Severe, Rash, 08/26/14) Phenergan (Verified Allergy, Severe, VOMITING, 08/26/14) Uncoded Allergies: ANTI-CONVULSIVES (Allergy, Severe, MIGRAINES, SLURRED SPEECH,, 01/23/14) Objective . Vital Signs Date Time Temp Pulse Resp B/P Pulse Ox O2 Delivery O2 Flow Rate FiO2 12/11/15 13:39 93 35 12/11/15 10:20 122 12/11/15 08:21 100 Ventilator 35 12/11/15 08:21 100 35 12/11/15 06:00 126 12/11/15 04:05 98 35 12/11/15 04:00 99.4 124 20 93/54 98 104/53 12/11/15 04:00 40 12/11/15 04:00 124 12/11/15 02:00 121 12/11/15 00:41 96 35 12/11/15 00:00 118 12/11/15 00:00 40 12/11/15 00:00 99.2 118 16 101/60 99 109/57 12/10/15 22:18 98 35 12/10/15 22:00 123 12/10/15 20:00 40 12/10/15 20:00 123 12/10/15 20:00 98.7 123 18 99/58 94 104/55 12/10/15 19:18 94 35 12/10/15 18:00 124 12/10/15 16:30 98.5 121 19 106/53 98 96/45 12/10/15 16:10 60 12/10/15 16:08 133 12/10/15 14:53 97 35 12/10/15 12/10/15 12/11/15 15:00 23:00 07:00 Intake Total 425 ml 1532 ml 717 ml Output Total 535 ml 550 ml 650 ml Balance -110 ml 982 ml 67 ml IV Total 300 ml 621 ml 283 ml Tube Feeding 75 ml 861 ml 384 ml Other 50 ml 50 ml 50 ml Output Urine Total 425 ml 400 ml 500 ml Stool Total 100 ml 100 ml 100 ml Drainage Total 10 ml 50 ml 50 ml . Laboratory Tests Test 12/10/15 12/11/15 04:00 04:21 White Blood Count 7.1 TH/MM3 6.5 TH/MM3 Red Blood Count 2.91 MIL/MM3 2.74 MIL/MM3 Hemoglobin 9.1 GM/DL 8.4 GM/DL Hematocrit 25.2 % 24.2 % Mean Corpuscular Volume 86.6 FL 88.2 FL Mean Corpuscular Hemoglobin 31.3 PG 30.8 PG Mean Corpuscular Hemoglobin 36.1 % 34.9 % Concent Red Cell Distribution Width 16.5 % 16.3 % Platelet Count 115 TH/MM3 114 TH/MM3 Mean Platelet Volume 9.7 FL 9.6 FL Neutrophils (%) (Auto) 76.9 % 68.0 % Lymphocytes (%) (Auto) 16.9 % 22.5 % Monocytes (%) (Auto) 4.4 % 7.0 % Eosinophils (%) (Auto) 0.5 % 1.2 % Basophils (%) (Auto) 1.3 % 1.3 % Neutrophils # (Auto) 5.5 TH/MM3 4.4 TH/MM3 Lymphocytes # (Auto) 1.2 TH/MM3 1.5 TH/MM3 Monocytes # (Auto) 0.3 TH/MM3 0.5 TH/MM3 Eosinophils # (Auto) 0.0 TH/MM3 0.1 TH/MM3 Basophils # (Auto) 0.1 TH/MM3 0.1 TH/MM3 CBC Comment AUTO DIFF AUTO DIFF Differential Total Cells 100 100 Counted Neutrophils % (Manual) 69 % 55 % Band Neutrophils % 10 % 12 % Lymphocytes % 13 % 25 % Monocytes % 4 % 5 % Eosinophils % 2 % 3 % Basophils % 2 % Neutrophils # (Manual) 5.6 TH/MM3 4.4 TH/MM3 Nucleated Red Blood Cells 2 /100 WBC 4 /100 WBC Differential Comment FINAL DIFF FINAL DIFF MANUAL MANUAL Platelet Estimate LOW LOW Platelet Morphology Comment NORMAL NORMAL Basophilic Stippling FAINT Laboratory Tests Test 12/10/15 12/11/15 04:00 04:21 Sodium Level 141 MEQ/L 145 MEQ/L Potassium Level 3.1 MEQ/L 3.2 MEQ/L Chloride Level 99 MEQ/L 104 MEQ/L Carbon Dioxide Level 33.3 MEQ/L 33.2 MEQ/L Anion Gap 9 MEQ/L 8 MEQ/L Blood Urea Nitrogen 69 MG/DL 69 MG/DL Creatinine 1.87 MG/DL 1.62 MG/DL Estimat Glomerular Filtration 38 ML/MIN 45 ML/MIN Rate Random Glucose 133 MG/DL 141 MG/DL Calcium Level 7.5 MG/DL 7.7 MG/DL Phosphorus Level 3.5 MG/DL 3.6 MG/DL Magnesium Level 2.0 MG/DL Microbiology Date/Time Procedure Status Source Growth 12/08/15 16:45 Gram Stain - Final Complete Wound Arm 12/08/15 16:45 Wound Culture - Final Complete Staphylococcus Aureus 12/08/15 17:45 Gram Stain - Final Complete Wound Elbow 12/08/15 17:45 Wound Culture - Final Complete Staphylococcus Aureus 12/08/15 17:45 Acid Fast Stain - Final Resulted Wound Elbow NO ACID FAST BACILLI SEEN 12/08/15 17:45 Mycobacterial Culture Resulted Wound Elbow Pending 12/08/15 17:45 Fungal Smear - Final Resulted Wound Elbow NO FUNGAL ELEMENTS SEEN. 12/08/15 17:45 Fungal Culture Resulted Wound Elbow Pending Imaging Last Impressions Chest X-Ray 12/08/15 0000 Signed Impressions: Service Date/Time: Tuesday, December 08, 2015 12:44 - CONCLUSION: No significant change has occurred. Arcadio Dickerson MD Abdomen X-Ray 12/06/15 0000 Signed Impressions: Service Date/Time: November 09:53 - CONCLUSION: Nonspecific KUB. Air is seen within a mildly distended colon but contrast is clearly seen in the rectum. Arnaldo Reyes MD Abdomen/Pelvis CT 12/04/15 0000 Signed Impressions: Service Date/Time: Friday, December 04, 2015 16:24 - CONCLUSION: 1. Mildly distended small bowel in the mid and lower abdomen. Contrast is clearly seen extending into the distal small bowel and ascending colon so a complete obstruction is not seen. A transition point is not seen. This pattern likely represents an ileus versus a partial obstruction. 2. Multiple nonobstructing renal stones. 3. Abnormal appearance of the spleen which appears to represent a splenule. It could be correlated if the patient has had either primary splenic removal or splenic injury and this is what is either left of the spleen or a developing splenule. This is likely of no significance. 4. Mild ascites. 5. Increased density within the gallbladder representing either tumefactive sludge or noncalcified stones. 6. Mild bilateral pleural effusions with prominent areas of lower lobe atelectasis or consolidation at the bases bilaterally. 7. Subacute to chronic bilateral rib fractures and multiple compression fractures in the lower thoracic and lumbar spine as described above. The patient does have a prior CT examination from 08/26/2014. All the compression deformities described above are new when compared to that scan. Arnaldo Reyes MD Head CT 12/02/15 1013 Signed Impressions: Service Date/Time: Wednesday, December 02, 2015 11:00 - CONCLUSION: 1. No intracranial abnormality is seen. 2. Air-fluid level in the right maxillary sinus. Arnaldo Reyes MD Physical Exam GENERAL: Sedated male, on the vent, NAD SKIN: + jaundice. Multiple wounds noted HEENT: Has scleral edema and icterus, ET in mouth. NO nasal drainage NECK: Trachea midline. Supple, nontender. CARDIOVASCULAR: ?systolic murmur in base of heart RESPIRATORY/CHEST: + some rhonchi on auscultation. Breath sounds equal bilaterally. GASTROINTESTINAL: Abdomen moderately distended, soft. No reaction to palpation GENITOURINARY: Sandoval catheter in place with clear, scrotum is very edematous. MUSCULOSKELETAL: Extremities no cyanosis, edema 2-3+. Has wound on L eg with slough, and smaller one on his R leg with slough. Has wound vac in his RUE with serosanfg d/c compartments appear soft Hand edematous but appears to be well perfused Able to move fingers Diffuse soft pitting edema cw anasarca NEUROLOGICAL: awake ; makes eye contact and follows commands LINES: NO evidence of infection Assessment & Plan Remarks Septic shock with MODS - source is RUE severe nec fasc 2/2 MSSA MSSA bacteremia - 2/2 severe SSTI of RUE, MSSA - repet blood clx remain negative at 3 days Severe SSTI of RUE, MSSA - S/P I and D x 3 - limb threatening infx E.coli bacteremia -source is unclear - suspect GI source - repeat BC is negative Immunosuppressed PCN allergy, but no probs with Keflex -per mom Respiratory failure ARF/ DEIRDRE/ATN 2/2 sepsis - improving Abx associated diarrhea, C.diff negative Worsening fluid retention Critical hypoalbumenemia PLAN: Continue Clinda Continue Ancef Continue Azactam thru 12/14 (2 weeks) Follow blood clx untill final Monitor progress needs improvemnt of his protein nourishement status in order to heal D/W RN dw family at b/s Argelia Becerra MD Dec 11, 2015 14:38
--- NOTE | 2015-12-11 16:46 | PD.PLAS.PN ---
Subjective Remarks Patient intubated. Responds to questions non-verbally. Objective Vital Signs Date Time Temp Pulse Resp B/P Pulse Ox O2 Delivery O2 Flow Rate FiO2 12/11/15 13:39 93 35 12/11/15 10:20 122 12/11/15 08:21 100 Ventilator 35 12/11/15 08:21 100 35 12/11/15 06:00 126 12/11/15 04:05 98 35 12/11/15 04:00 99.4 124 20 93/54 98 104/53 12/11/15 04:00 40 12/11/15 04:00 124 12/11/15 02:00 121 12/11/15 00:41 96 35 12/11/15 00:00 118 12/11/15 00:00 40 12/11/15 00:00 99.2 118 16 101/60 99 109/57 12/10/15 22:18 98 35 12/10/15 22:00 123 12/10/15 20:00 40 12/10/15 20:00 123 12/10/15 20:00 98.7 123 18 99/58 94 104/55 12/10/15 19:18 94 35 12/10/15 18:00 124 I/O 12/10/15 12/10/15 12/10/15 12/11/15 12/11/15 12/11/15 07:00 15:00 23:00 07:00 15:00 23:00 Intake Total 828 ml 425 ml 1532 ml 717 ml Output Total 650 ml 535 ml 550 ml 650 ml Balance 178 ml -110 ml 982 ml 67 ml IV Total 317 ml 300 ml 621 ml 283 ml Tube Feeding 411 ml 75 ml 861 ml 384 ml Other 100 ml 50 ml 50 ml 50 ml Output Urine Total 450 ml 425 ml 400 ml 500 ml Stool Total 200 ml 100 ml 100 ml 100 ml Drainage Total 0 ml 10 ml 50 ml 50 ml Laboratory Tests Test 12/11/15 04:21 White Blood Count 6.5 Red Blood Count 2.74 Hemoglobin 8.4 Hematocrit 24.2 Mean Corpuscular Volume 88.2 Mean Corpuscular Hemoglobin 30.8 Mean Corpuscular Hemoglobin 34.9 Concent Red Cell Distribution Width 16.3 Platelet Count 114 Mean Platelet Volume 9.6 Neutrophils (%) (Auto) 68.0 Lymphocytes (%) (Auto) 22.5 Monocytes (%) (Auto) 7.0 Eosinophils (%) (Auto) 1.2 Basophils (%) (Auto) 1.3 Neutrophils # (Auto) 4.4 Lymphocytes # (Auto) 1.5 Monocytes # (Auto) 0.5 Eosinophils # (Auto) 0.1 Basophils # (Auto) 0.1 CBC Comment AUTO DIFF Differential Total Cells 100 Counted Neutrophils % (Manual) 55 Band Neutrophils % 12 Lymphocytes % 25 Monocytes % 5 Eosinophils % 3 Neutrophils # (Manual) 4.4 Nucleated Red Blood Cells 4 Differential Comment FINAL DIFF MANUAL Platelet Estimate LOW Platelet Morphology Comment NORMAL Sodium Level 145 Potassium Level 3.2 Chloride Level 104 Carbon Dioxide Level 33.2 Anion Gap 8 Blood Urea Nitrogen 69 Creatinine 1.62 Estimat Glomerular Filtration 45 Rate Random Glucose 141 Calcium Level 7.7 Phosphorus Level 3.6 Date/Time Procedure Status Source Growth 12/08/15 17:45 Gram Stain - Final Complete Wound Elbow 12/08/15 17:45 Wound Culture - Final Complete Staphylococcus Aureus 12/08/15 17:45 Fungal Smear - Final Resulted Wound Elbow NO FUNGAL ELEMENTS SEEN. 12/08/15 17:45 Fungal Culture Resulted Wound Elbow Pending 12/08/15 17:45 Acid Fast Stain - Final Resulted Wound Elbow NO ACID FAST BACILLI SEEN 12/08/15 17:45 Mycobacterial Culture Resulted Wound Elbow Pending 12/08/15 09:44 Aerobic Blood Culture - Preliminary Resulted Blood Peripheral NO GROWTH IN 3 DAYS 12/08/15 09:44 Anaerobic Blood Culture - Preliminary Resulted Blood Peripheral NO GROWTH IN 3 DAYS Result Diagram: 12/11/15 0421 12/11/15 0421 Exam Findings Distal portion of the dressing is removed for exam. Wound is clean without evidence of infection. Necrotic areas noted to the dorsal PIP joints of the middle and ring finger. No surrounding cellulitis. Assessment and Plan Diagnosis: (1) Open wound of right upper extremity with complication Assessment and Plan The necrotic tissue of the dorsal middle and ring fingers is cleansed with povidone iodine and debrided with scissors and forceps. The open distal area of the dorsal hand wound is cleansed with povidone iodine and gauze. The wound vac will be reapplied to the distal hand by the nursing staff. Discharge Planning The exam, history, and the medical decision-making described in the above note were completed with the assistance of the mid-level provider. I reviewed and agree with the findings presented. I attest that I had a [id number] encounter with the patient on the same day, and personally performed and documented my assessment and findings in the medical record. Barbara Pedro M.D. [place] Dec 11, 2015 16:46
[2015-12-11] MEDS: POTASSIUM CHLOR 40 MEQ PREMIX 100 ML IV PRN (17:09)
[2015-12-11] MEDS: CHLORHEXIDINE 0.12% (ORAL KIT) 15 ML CUP MT SCH ×2 (17:12→22:43)
[2015-12-11] MEDS: fentaNYL 2,500 MCG/NS 250 ML IV SCH (18:01)
[2015-12-11] MEDS: MORPHINE SULFATE 4 MG/ML INJ IV PUSH PRN (22:54)
[2015-12-12] VITALS (17 sets, daily range): BP systolic 83–136; BP diastolic 50–65; PULSE 123–132; RESP 20–28; TEMP 98.5–101.5; O2SAT 92–100
[2015-12-12] MEDS: VASOPRESSIN INJ 40 UNITS in DEXTROSE 5% IN WATER 100ML INJ 98 ML IV SCH ×4 (00:10→22:24)
[2015-12-12] MEDS: MEDIUM DOSE INSULIN NOVOLIN REGULAR SUPPLEMENTAL SCALE SQ SCH ×6 (02:14→22:00)
[2015-12-12] MEDS: RESP: ALBUTEROL 2.5 MG/IPRATROPIUM 0.5 MG NEB (SCH) NEB ×4 (04:13→22:52)
[2015-12-12] MEDS: CLINDAMYCIN INJ 900 MG in SODIUM CHLORIDE 0.9% INJ 100 ML IV SCH ×3 (04:16→20:48)
[2015-12-12] MEDS ORDERED: AMIODARONE HCL 150 MG/3 ML VIAL ONE (04:46)
[2015-12-12] MEDS ORDERED: METOPROLOL TARTRATE 5 MG/5 ML VIAL ONE (04:48)
[2015-12-12] MEDS ORDERED: METOPROLOL TARTRATE 5 MG/5 ML VIAL IV PUSH ONE (05:15)
[2015-12-12 05:32] LABS: AUTOMATED NEUTROPHIL # 5.1 TH/MM3 (1.8-7.7); BASOPHIL # 0.1 TH/MM3 (0-0.2); BASOPHIL % 1.6 % (0.0-2.0); EOSINOPHIL # 0.1 TH/MM3 (0-0.4); EOSINOPHIL % 1.3 % (0.0-4.0); HEMATOCRIT 23.7 % (39.0-51.0); LYMPH % 27.1 % (9.0-44.0); LYMPHOCYTE # 2.2 TH/MM3 (1.0-4.8); MEAN CELL VOLUME 90.7 FL (80.0-100.0); MEAN CORPUSCULAR HEMOGLOBIN 30.7 PG (27.0-34.0); MEAN CORPUSCULAR HGB CONC 33.9 % (32.0-36.0); MONO % 8.4 % (0.0-8.0); NEUT % 61.6 % (16.0-70.0); PLATELET COUNT 141 TH/MM3 (150-450); RED BLOOD COUNT 2.61 MIL/MM3 (4.50-5.90); RED CELL DISTRIBUTION WIDTH 16.5 % (11.6-17.2); WHITE BLOOD COUNT 8.3 TH/MM3 (4.0-11.0)
[2015-12-12 05:35] LABS: HEMO FLAGS AUTO DIFF
[2015-12-12 05:54] LABS: BICARBONATE 33.5 MEQ/L (21.0-32.0); MAGNESIUM 2.1 MG/DL (1.5-2.5); POTASSIUM 3.5 MEQ/L (3.5-5.1)
[2015-12-12] MEDS: ceFAZolin 2 GM PREMIX 50 ML IV SCH ×3 (06:22→23:47)
--- NOTE | 2015-12-12 07:16 | MP ---
cc: ROLAN CHAVEZ III, M.D. DATE OF SURGERY 12/08/2015 PROCEDURE 1. Right hand, forearm and elbow bursa incision and debridement. 2. Vacuum assisted closure dressing placement. SURGEON Rolan Chavez MD PROCEDURE The patient was brought to the operating room and placed supine on the operating table. After the correct site and side of surgery were verified by members of each team in the room multiple times including the patient and myself and after adequate time-out had been performed and general anesthesia had been achieved, the right upper extremity was prepped and draped in the traditional sterile surgical fashion. Additional cultures of the purulent drainage from the elbow bursa were obtained and passed off the field. The wound was examined and found to have 50%-75% necrosis of all aspects of the wound. Subcutaneous tissue underneath the volar/ulnar flap was fully engulfed with purulence. All necrotic skin, peritenon and muscle mostly in the hand was sharply debrided. Dorsally and volarly, the skin was sharply debrided back to bleeding viable tissue which resulted in approximately 40 square centimeters of skin being excised. To further aggressive debridement was then done again to open up any remaining pockets of purulence none of which were identified. The elbow bursa, which was draining both purulence and what looks to be crystalline material consistent with gout was opened within the incision dorsally as well. There was no necrotic tissue or grossly infected tissue once it was cleaned up. Just as well with the remaining viable skin flaps and after the subcutaneous debridement, there was no evidence of any grossly infected tissue remaining. The pulse lavage with three liters of antibiotic irrigation was then used in the usual fashion. Hemostasis was present. The hand and arm were thoroughly cleansed and dried and using a Vac assisted closure, a sponge was placed on the entire wound and underneath the volar flap and then dressed securely and connected to 125 mmHg suction on an intermittent setting. Capillary refill was two seconds or better in all fingers and the fingertips were warm and pink. The patient was then transported back to the intensive care unit. MD RADHA Sarkar III/REY /7:40 PM /7:02 AM SANDRA
[2015-12-12 07:32] LABS: BANDS 24 % (0-6); BASOPHILS 4 % (0-2); CORRECTED NUCLEATED RBC 6 /100 WBC (0-0); EOSINOPHILS 1 % (0-4); METAMYELOCYTES 4 % (0-1); NEUTROPHIL # MANUAL DIFF 6.4 TH/MM3 (1.8-7.7); PLASMA CELLS 1 % (0-0); POLYS (SEG NEUTROPHILS) 49 % (16-70); TARGET CELLS 1+ (NORMAL); WBC DIFF SAMPLE 100
[2015-12-12 07:33] LABS: PLATELET ESTIMATE SMEAR NORMAL (NORMAL); PLATELET MORPHOLOGY NORMAL (NORMAL); SCAN/DIFF FINAL DIFF MANUAL
[2015-12-12] MEDS: COLLAGENASE OINT 30 GM TUBE TOP SCH (07:41)
[2015-12-12] MEDS: CHLORHEXIDINE 0.12% (ORAL KIT) 15 ML CUP MT SCH ×2 (07:41→20:00)
[2015-12-12] MEDS: AZTREONAM INJ 2,000 MG in SODIUM CHLORIDE 0.9% INJ 100 ML IV SCH ×3 (07:41→23:49)
--- NOTE | 2015-12-12 08:37 | HHI.CCPN ---
Subjective Remarks/Hospital Course 55-year-old male brought by EMS with altered mental status. He has been confused for 2 days but this morning has been the worst. He has history of chronic opiate medications including methadone and morphine that he takes for pain management and hence they gave him Narcan IV which brought the GCS up to 13. The blood glucose was 74. He has open wounds from his right upper and bilateral lower extremities. He has history of hepatitis C. Last week he was pealing and eating shrimps. Bedside blood sugar was 76 in the ER. He was tachycardic in 1 teens and was intubated in the ED for airway protection. Admitted to ICU with sepsis due to Staph Aureus hand infection and E. Coli bacteriemia. 12/05 Patient remains sedated with Fentanyl and intubated. On Levophed 3 mics, Vasopressin 0.03 mics and Bicarb drip. T:99.8 TF placed on hold OGT to LIWS last night - gastric drainage 525ml overnight. 12/06 Patient is sedated with Fentanyl and intubated, On Levophed 3 mics, off vasopressin. Gastric output 400ml in 24 hrs. KUB abdomen yesterday mildly distended colon otherwise non specific KUB. 12/07 Patient is off sedation remains intubated tolerated CPAP for most day yesterday. Afebrile. on no drips, tolerating tube feeds. 12/08 Patient went to OR yesterday for debridement and irrigation of right forearm and wound VAC placement. Given 2U PRBC and 2u PLT yesterday and currently receiving 1of 2 u additional PRBC. Hgb 7.7, PLT 43 this morning. Patient also started on pressors now on Levophed 10 mics. Vasopressin 0.04 mics. On no sedation. 12/09 Patient remains intubated off pressors, Afebrile. Tolerating tube feeds. Afebrile. 12/10 Patient is sedated with Fentanyl and intubated. Awake and follows commands off sedation. Afebrile. 12/11 Patient had ?SVT overnight given Lopressor 2.5mg IV x1, Remains intubated and sedated with Fentanyl. Afebrile. Tolerating TF. Objective - Vital Signs Date Time Temp Pulse Resp B/P Pulse Ox O2 Delivery O2 Flow Rate FiO2 12/12/15 07:45 97 40 12/12/15 06:00 125 12/12/15 04:00 98.7 24 109/63 Arterial Line 12/11/15 08:21 Ventilator Intake and Output 12/11/15 12/11/15 12/12/15 08:00 16:00 00:00 Intake Total 717 ml 820 ml 993 ml Output Total 650 ml 640 ml 1200 ml Balance 67 ml 180 ml -207 ml Result Diagram: 12/12/15 0508 12/12/15 0508 Other Results Laboratory Tests Test 12/12/15 05:08 White Blood Count 8.3 TH/MM3 Red Blood Count 2.61 MIL/MM3 Hemoglobin 8.0 GM/DL Hematocrit 23.7 % Mean Corpuscular Volume 90.7 FL Mean Corpuscular Hemoglobin 30.7 PG Mean Corpuscular Hemoglobin 33.9 % Concent Red Cell Distribution Width 16.5 % Platelet Count 141 TH/MM3 Mean Platelet Volume 10.5 FL Neutrophils (%) (Auto) 61.6 % Lymphocytes (%) (Auto) 27.1 % Monocytes (%) (Auto) 8.4 % Eosinophils (%) (Auto) 1.3 % Basophils (%) (Auto) 1.6 % Neutrophils # (Auto) 5.1 TH/MM3 Lymphocytes # (Auto) 2.2 TH/MM3 Monocytes # (Auto) 0.7 TH/MM3 Eosinophils # (Auto) 0.1 TH/MM3 Basophils # (Auto) 0.1 TH/MM3 CBC Comment AUTO DIFF Differential Total Cells 100 Counted Neutrophils % (Manual) 49 % Band Neutrophils % 24 % Lymphocytes % 13 % Monocytes % 4 % Eosinophils % 1 % Basophils % 4 % Neutrophils # (Manual) 6.4 TH/MM3 Metamyelocytes 4 % Nucleated Red Blood Cells 6 /100 WBC Differential Comment FINAL DIFF MANUAL Plasma Cells 1 % Platelet Estimate NORMAL Platelet Morphology Comment NORMAL Polychromasia 2.0 % Target Cells 1+ Sodium Level 148 MEQ/L Potassium Level 3.5 MEQ/L Chloride Level 109 MEQ/L Carbon Dioxide Level 33.5 MEQ/L Anion Gap 6 MEQ/L Blood Urea Nitrogen 66 MG/DL Creatinine 1.34 MG/DL Estimat Glomerular Filtration 56 ML/MIN Rate Random Glucose 102 MG/DL Calcium Level 7.8 MG/DL Phosphorus Level 3.4 MG/DL Magnesium Level 2.1 MG/DL Imaging Last Impressions Chest X-Ray 12/08/15 0000 Signed Impressions: Service Date/Time: Tuesday, December 08, 2015 12:44 - CONCLUSION: No significant change has occurred. Arcadio Dickerson MD Abdomen X-Ray 12/06/15 0000 Signed Impressions: Service Date/Time: November 09:53 - CONCLUSION: Nonspecific KUB. Air is seen within a mildly distended colon but contrast is clearly seen in the rectum. Arnaldo Reyes MD Abdomen/Pelvis CT 12/04/15 0000 Signed Impressions: Service Date/Time: Friday, December 04, 2015 16:24 - CONCLUSION: 1. Mildly distended small bowel in the mid and lower abdomen. Contrast is clearly seen extending into the distal small bowel and ascending colon so a complete obstruction is not seen. A transition point is not seen. This pattern likely represents an ileus versus a partial obstruction. 2. Multiple nonobstructing renal stones. 3. Abnormal appearance of the spleen which appears to represent a splenule. It could be correlated if the patient has had either primary splenic removal or splenic injury and this is what is either left of the spleen or a developing splenule. This is likely of no significance. 4. Mild ascites. 5. Increased density within the gallbladder representing either tumefactive sludge or noncalcified stones. 6. Mild bilateral pleural effusions with prominent areas of lower lobe atelectasis or consolidation at the bases bilaterally. 7. Subacute to chronic bilateral rib fractures and multiple compression fractures in the lower thoracic and lumbar spine as described above. The patient does have a prior CT examination from 08/26/2014. All the compression deformities described above are new when compared to that scan. Arnaldo Reyes MD Head CT 12/02/15 1013 Signed Impressions: Service Date/Time: Wednesday, December 02, 2015 11:00 - CONCLUSION: 1. No intracranial abnormality is seen. 2. Air-fluid level in the right maxillary sinus. Arnaldo Reyes MD Objective Remarks GENERAL: Patient is 55yo critically ill intubated. SKIN: Warm and dry. HEAD: Normocephalic. EYES: No scleral icterus. No injection or drainage. NECK: Supple, trachea midline. No JVD or lymphadenopathy. Orally intubated CARDIOVASCULAR:Tachycardic without murmurs, gallops, or rubs. RESPIRATORY: Breath sounds equal bilaterally. No accessory muscle use. GASTROINTESTINAL: soft, non-tender, nondistended. MUSCULOSKELETAL: Generalized anasarca. Multiple open wounds in the lower extremity. RUE - s/p debridement and irrigation with wound VAC placement 12/07 BACK: Nontender without obvious deformity. No CVA tenderness. Neuro: intubated A/P Problem List: (1) History of splenectomy ICD Code: Z90.81 Status: Acute (2) Altered mental status ICD Code: R41.82 Status: Acute (3) Sepsis ICD Code: A41.9 Status: Acute (4) Respiratory failure ICD Code: J96.90 Status: Acute Assessment and Plan Neuro: - AMS due to sepsis - staph infection + E coli bacteriemia - On Fentanyl infusion for sedation,, monitor neuro status - 12/01 CT head negative, Ammonia level <10 on 12/08 CV Monitor HR and BP l keep MAP>65mmHg -Lactic acid 2.7 on 12/02, CVP monitoring Echo 12/07 EF 65-70%, grade I diastolic dysfunction Respiratory -Continue with vent support keep sat >92%- on ACV with RR 12, TV 500, PEEP: 5, FIO2 40% -Bronchodilators, ICU vent bundle. SBT daily as tarun. ID - Severe sepsis - Necrotizing Fascitis - Staph Aureus -s/p debridement and application of the wound vac by Dr. Chavez on 12/09 - Debridement 12/01 p.m by hand surgery - E Coli - bacteriemia 12/01 - Wound cx 12/07 Staph Aureus Continue abx per ID ( IV Clinda, Azactam, Ancef) follow up on BC from 12/05...> 2/4 GPC, Staph Aureus Monitor for signs of infections ( Fever, WBC) C-diff PCR negative on 12/03 Wound care on case for multiple wound ulcers Renal -DEIRDRE Monitor renal function, I/O', electrolytes replacement per protocol Renal function improving with Cr 1.34 today from1.62 GI - Continue TF- Glucerna @ 55ml/hr Hem Anemia Thrombocytopenia- likely 2nd sepsis ( improving) - monitor CBC, s/p transfusion 1u PLT Phereses on 12/05 - s/p transfusion 2u PRBC, 2u PLT 12/07 -INR 1.3 12/08 -Hep PLT ab negative on 12/03 Endo - ISS with accuchecks On Pepcid for GI prophylaxis -SCD for DVT prophylaxis- not on chemical AC 2nd thrombocytopenia Lines: Right subclavian CVP placed 12/01 Critical Care: The total critical care time was 30 minutes. Time to perform other separately billable procedures was not included in the critical care time. Problem Qualifiers (1) Altered mental status: Qualified Code: R41.0 - Delirium (2) Sepsis: Qualified Code: A41.9 - Sepsis, due to unspecified organism (3) Respiratory failure: Qualified Code: J96.00 - Acute respiratory failure, unspecified whether with hypoxia or hypercapnia Colin Morton MD Dec 12, 2015 08:37
[2015-12-12] MEDS: POVIDONE IODINE 10% OINT 30 GM TUBE TOPICAL SCH (16:16)
--- NOTE | 2015-12-12 18:16 | HHI.IDPN ---
Subjective Subjective Remarks clinically stable remains on vent afebrile off pressors severe bandemia Antibiotics Ancef Clindamycin Azactam Lines RIJ and other Line sites with no e/o infection Past Medical History RA HCV sp splenectomy Allergies: Coded Allergies: Compazine (Verified Allergy, Severe, VOMITING, RASH, 08/26/14) SLURRED SPEECH, MIGRAINES Demerol (Verified Allergy, Severe, VOMITING, 08/26/14) Levaquin (Verified Allergy, Severe, 08/26/14) Penicillin (Verified Allergy, Severe, Rash, 08/26/14) Phenergan (Verified Allergy, Severe, VOMITING, 08/26/14) Uncoded Allergies: ANTI-CONVULSIVES (Allergy, Severe, MIGRAINES, SLURRED SPEECH,, 01/23/14) Objective . Vital Signs Date Time Temp Pulse Resp B/P Pulse Ox O2 Delivery O2 Flow Rate FiO2 12/12/15 18:00 127 12/12/15 16:38 94 40 12/12/15 16:15 40 12/12/15 16:00 99.0 127 24 83/52 95 12/12/15 16:00 127 12/12/15 14:00 123 12/12/15 12:00 126 12/12/15 12:00 99.0 126 20 87/65 96 12/12/15 12:00 40 12/12/15 11:34 40 12/12/15 11:13 94 40 12/12/15 10:00 124 12/12/15 09:30 40 12/12/15 08:00 99.3 126 22 136/65 92 12/12/15 08:00 126 12/12/15 07:45 97 40 12/12/15 07:40 40 12/12/15 06:00 125 12/12/15 04:14 96 40 12/12/15 04:00 40 12/12/15 04:00 98.7 132 24 109/63 94 Arterial Line 12/12/15 04:00 132 12/12/15 02:00 129 12/12/15 01:15 96 40 12/12/15 00:00 98.5 127 25 99/58 97 99/50 12/12/15 00:00 40 12/12/15 00:00 127 12/11/15 22:59 24 12/11/15 22:25 96 40 12/11/15 22:00 129 12/11/15 21:04 99 40 12/11/15 20:00 128 12/11/15 20:00 98.4 128 25 104/59 97 95/45 12/11/15 20:00 50 12/11/15 18:20 125 12/11/15 12/11/15 12/12/15 15:00 23:00 07:00 Intake Total 820 ml 993 ml 625 ml Output Total 640 ml 1200 ml 700 ml Balance 180 ml -207 ml -75 ml IV Total 445 ml 81 ml 325 ml Tube Feeding 275 ml 912 ml 300 ml Other 100 ml Output Urine Total 540 ml 850 ml 550 ml Stool Total 100 ml 200 ml 100 ml Drainage Total 150 ml 50 ml . Laboratory Tests Test 12/11/15 12/12/15 04:21 05:08 White Blood Count 6.5 TH/MM3 8.3 TH/MM3 Red Blood Count 2.74 MIL/MM3 2.61 MIL/MM3 Hemoglobin 8.4 GM/DL 8.0 GM/DL Hematocrit 24.2 % 23.7 % Mean Corpuscular Volume 88.2 FL 90.7 FL Mean Corpuscular Hemoglobin 30.8 PG 30.7 PG Mean Corpuscular Hemoglobin 34.9 % 33.9 % Concent Red Cell Distribution Width 16.3 % 16.5 % Platelet Count 114 TH/MM3 141 TH/MM3 Mean Platelet Volume 9.6 FL 10.5 FL Neutrophils (%) (Auto) 68.0 % 61.6 % Lymphocytes (%) (Auto) 22.5 % 27.1 % Monocytes (%) (Auto) 7.0 % 8.4 % Eosinophils (%) (Auto) 1.2 % 1.3 % Basophils (%) (Auto) 1.3 % 1.6 % Neutrophils # (Auto) 4.4 TH/MM3 5.1 TH/MM3 Lymphocytes # (Auto) 1.5 TH/MM3 2.2 TH/MM3 Monocytes # (Auto) 0.5 TH/MM3 0.7 TH/MM3 Eosinophils # (Auto) 0.1 TH/MM3 0.1 TH/MM3 Basophils # (Auto) 0.1 TH/MM3 0.1 TH/MM3 CBC Comment AUTO DIFF AUTO DIFF Differential Total Cells 100 100 Counted Neutrophils % (Manual) 55 % 49 % Band Neutrophils % 12 % 24 % Lymphocytes % 25 % 13 % Monocytes % 5 % 4 % Eosinophils % 3 % 1 % Neutrophils # (Manual) 4.4 TH/MM3 6.4 TH/MM3 Nucleated Red Blood Cells 4 /100 WBC 6 /100 WBC Differential Comment FINAL DIFF FINAL DIFF MANUAL MANUAL Platelet Estimate LOW NORMAL Platelet Morphology Comment NORMAL NORMAL Basophils % 4 % Metamyelocytes 4 % Plasma Cells 1 % Polychromasia 2.0 % Target Cells 1+ Laboratory Tests Test 12/11/15 12/12/15 04:21 05:08 Sodium Level 145 MEQ/L 148 MEQ/L Potassium Level 3.2 MEQ/L 3.5 MEQ/L Chloride Level 104 MEQ/L 109 MEQ/L Carbon Dioxide Level 33.2 MEQ/L 33.5 MEQ/L Anion Gap 8 MEQ/L 6 MEQ/L Blood Urea Nitrogen 69 MG/DL 66 MG/DL Creatinine 1.62 MG/DL 1.34 MG/DL Estimat Glomerular Filtration 45 ML/MIN 56 ML/MIN Rate Random Glucose 141 MG/DL 102 MG/DL Calcium Level 7.7 MG/DL 7.8 MG/DL Phosphorus Level 3.6 MG/DL 3.4 MG/DL Magnesium Level 2.1 MG/DL Imaging Last Impressions Chest X-Ray 12/08/15 0000 Signed Impressions: Service Date/Time: Tuesday, December 08, 2015 12:44 - CONCLUSION: No significant change has occurred. Arcadio Dickerson MD Abdomen X-Ray 12/06/15 0000 Signed Impressions: Service Date/Time: November 09:53 - CONCLUSION: Nonspecific KUB. Air is seen within a mildly distended colon but contrast is clearly seen in the rectum. Arnaldo Reyes MD Abdomen/Pelvis CT 12/04/15 0000 Signed Impressions: Service Date/Time: Friday, December 04, 2015 16:24 - CONCLUSION: 1. Mildly distended small bowel in the mid and lower abdomen. Contrast is clearly seen extending into the distal small bowel and ascending colon so a complete obstruction is not seen. A transition point is not seen. This pattern likely represents an ileus versus a partial obstruction. 2. Multiple nonobstructing renal stones. 3. Abnormal appearance of the spleen which appears to represent a splenule. It could be correlated if the patient has had either primary splenic removal or splenic injury and this is what is either left of the spleen or a developing splenule. This is likely of no significance. 4. Mild ascites. 5. Increased density within the gallbladder representing either tumefactive sludge or noncalcified stones. 6. Mild bilateral pleural effusions with prominent areas of lower lobe atelectasis or consolidation at the bases bilaterally. 7. Subacute to chronic bilateral rib fractures and multiple compression fractures in the lower thoracic and lumbar spine as described above. The patient does have a prior CT examination from 08/26/2014. All the compression deformities described above are new when compared to that scan. Arnaldo Reyes MD Head CT 12/02/15 1013 Signed Impressions: Service Date/Time: Wednesday, December 02, 2015 11:00 - CONCLUSION: 1. No intracranial abnormality is seen. 2. Air-fluid level in the right maxillary sinus. Arnaldo Reyes MD Physical Exam GENERAL: on the vent, NAD SKIN: + jaundice. Multiple wounds noted HEENT: Has scleral edema and icterus, ET in mouth. NO nasal drainage NECK: Trachea midline. Supple, nontender. CARDIOVASCULAR: systolic murmur in base of heart RESPIRATORY/CHEST: + some rhonchi on auscultation. Breath sounds equal bilaterally. GASTROINTESTINAL: Abdomen moderately distended, soft. No reaction to palpation GENITOURINARY: Sandoval catheter in place with clear, scrotum is very edematous. MUSCULOSKELETAL: Extremities no cyanosis, edema 3+. Has wound on L eg with slough, and smaller one on his R leg with slough. Has wound vac in his RUE with serosang d/c compartments appear soft Hand edematous but appears to be well perfused Diffuse soft pitting edema cw anasarca NEUROLOGICAL: awake ; makes eye contact and follows commands LINES: NO evidence of infection Assessment & Plan Remarks Septic shock with MODS - source is RUE severe nec fasc 2/2 MSSA MSSA bacteremia - 2/2 severe SSTI of RUE, MSSA - repet blood clx remain negative at 3 days Severe SSTI of RUE, MSSA - S/P I and D x 3 - limb threatening infx E.coli bacteremia -source is unclear - suspect GI source - repeat BC is negative Immunosuppressed PCN allergy, but no probs with Keflex -per mom Respiratory failure ARF/ DEIRDRE/ATN 2/2 sepsis - improving Abx associated diarrhea, C.diff negative Worsening fluid retention Critical hypoalbumenemia PLAN: Continue Clinda Continue Ancef Continue Azactam thru 12/14 (2 weeks) Follow blood clx untill final Monitor progress needs improvemnt of his protein nourishement status in order to heal D/W RN d/w Argelia Doll MD Dec 12, 2015 18:16
[2015-12-12] MEDS: HYDROmorphone HCL PF 1 MG/ML VIAL IV PUSH PRN ×2 (20:16→23:48)
[2015-12-12] MEDS ORDERED: ACETAMINOPHEN 500 MG CPLT PO PRN (21:00)
--- NOTE | 2015-12-12 22:45 | EKG ---
Date Performed: 12/12/2015 Time Performed: 04:51:28 PTAGE: 55 years EKG: Sinus Tachycardia Left bundle branch block Lateral infarct - age undetermined Anteroseptal T wave changes may be due to myocardial ischemia Abnormal ECG PREVIOUS TRACING : 12/02/2015 10.14 Since previous tracing, no significant change noted DOCTOR: Victoriano Alexander Interpretating Date/Time 12/12/2015 22:44:02
[2015-12-13] VITALS (17 sets, daily range): BP systolic 84–103; BP diastolic 52–58; PULSE 117–127; RESP 18–25; TEMP 99.2–100; O2SAT 93–100
[2015-12-13] MEDS: MEDIUM DOSE INSULIN NOVOLIN REGULAR SUPPLEMENTAL SCALE SQ SCH ×6 (02:00→21:54)
[2015-12-13] MEDS: RESP: ALBUTEROL 2.5 MG/IPRATROPIUM 0.5 MG NEB (SCH) NEB ×5 (03:07→21:02)
[2015-12-13 03:26] LABS: BLOOD, URINE MOD (NEG); GLUCOSE,URINE NEG (NEG); GRANULAR CAST, URINE 110 /lpf; HYALINE CAST, URINE 7 /lpf (RARE); KETONE, URINE NEG (NEG); MUCUS URINE FEW /lpf (OCC); NITRITE,URINE NEG (NEG); PH, URINE 5.5 (5.0-8.5)
[2015-12-13 03:27] LABS: URINE COLOR DARK-BROWN (YELLW/STRAW)
[2015-12-13 03:30] LABS: COMMENT (UR) CATH-CULTURE IND; CULTURE IF INDICATED CATH CULTURE IND
[2015-12-13] MEDS: CHLORHEXIDINE GLUCONATE 2 % 1 PACK (2 CLOTHS) TOP SCH (04:00)
[2015-12-13 04:36] LABS: BICARBONATE 30.4 MEQ/L (21.0-32.0); POTASSIUM 3.6 MEQ/L (3.5-5.1)
[2015-12-13 04:55] LABS: AUTOMATED NEUTROPHIL # 7.8 TH/MM3 (1.8-7.7); BASOPHIL # 0.1 TH/MM3 (0-0.2); EOSINOPHIL # 0.1 TH/MM3 (0-0.4); EOSINOPHIL % 1.3 % (0.0-4.0); HEMATOCRIT 24.2 % (39.0-51.0); HEMO FLAGS AUTO DIFF; LYMPH % 20.8 % (9.0-44.0); LYMPHOCYTE # 2.3 TH/MM3 (1.0-4.8); MEAN CELL VOLUME 94.5 FL (80.0-100.0); MEAN CORPUSCULAR HEMOGLOBIN 30.6 PG (27.0-34.0); MEAN CORPUSCULAR HGB CONC 32.4 % (32.0-36.0); MONO % 7.1 % (0.0-8.0); NEUT % 69.8 % (16.0-70.0); PLATELET COUNT 136 TH/MM3 (150-450); RED BLOOD COUNT 2.57 MIL/MM3 (4.50-5.90); RED CELL DISTRIBUTION WIDTH 17.7 % (11.6-17.2); WHITE BLOOD COUNT 11.1 TH/MM3 (4.0-11.0)
[2015-12-13] MEDS: CLINDAMYCIN INJ 900 MG in SODIUM CHLORIDE 0.9% INJ 100 ML IV SCH ×3 (05:11→22:33)
[2015-12-13] MEDS: HYDROmorphone HCL PF 1 MG/ML VIAL IV PUSH PRN ×5 (05:11→22:34)
[2015-12-13] MEDS: ceFAZolin 2 GM PREMIX 50 ML IV SCH ×3 (05:51→23:18)
[2015-12-13] MEDS: MORPHINE SULFATE 4 MG/ML INJ IV PUSH PRN (05:52)
[2015-12-13] MEDS: fentaNYL 2,500 MCG/NS 250 ML IV SCH ×2 (06:29→20:17)
--- NOTE | 2015-12-13 08:29 | HHI.CCPN ---
Subjective Remarks/Hospital Course 55-year-old male brought by EMS with altered mental status. He has been confused for 2 days but this morning has been the worst. He has history of chronic opiate medications including methadone and morphine that he takes for pain management and hence they gave him Narcan IV which brought the GCS up to 13. The blood glucose was 74. He has open wounds from his right upper and bilateral lower extremities. He has history of hepatitis C. Last week he was pealing and eating shrimps. Bedside blood sugar was 76 in the ER. He was tachycardic in 1 teens and was intubated in the ED for airway protection. Admitted to ICU with sepsis due to Staph Aureus hand infection and E. Coli bacteriemia. 12/05 Patient remains sedated with Fentanyl and intubated. On Levophed 3 mics, Vasopressin 0.03 mics and Bicarb drip. T:99.8 TF placed on hold OGT to LIWS last night - gastric drainage 525ml overnight. 12/06 Patient is sedated with Fentanyl and intubated, On Levophed 3 mics, off vasopressin. Gastric output 400ml in 24 hrs. KUB abdomen yesterday mildly distended colon otherwise non specific KUB. 12/07 Patient is off sedation remains intubated tolerated CPAP for most day yesterday. Afebrile. on no drips, tolerating tube feeds. 12/08 Patient went to OR yesterday for debridement and irrigation of right forearm and wound VAC placement. Given 2U PRBC and 2u PLT yesterday and currently receiving 1of 2 u additional PRBC. Hgb 7.7, PLT 43 this morning. Patient also started on pressors now on Levophed 10 mics. Vasopressin 0.04 mics. On no sedation. 12/09 Patient remains intubated off pressors, Afebrile. Tolerating tube feeds. Afebrile. 12/10 Patient is sedated with Fentanyl and intubated. Awake and follows commands off sedation. Afebrile. 12/11 Patient had ?SVT overnight given Lopressor 2.5mg IV x1, Remains intubated and sedated with Fentanyl. Afebrile. Tolerating TF. 12/12 Patient spoked fever last night with T: 101.5, sedated with Fentanyl and intubated. Objective - Vital Signs Date Time Temp Pulse Resp B/P Pulse Ox O2 Delivery O2 Flow Rate FiO2 12/13/15 07:22 99 40 12/13/15 04:00 99.2 126 23 103/57 12/11/15 08:21 Ventilator Intake and Output 12/12/15 12/12/15 12/13/15 08:00 16:00 00:00 Intake Total 625 ml 1772 ml 372 ml Output Total 700 ml 875 ml 500 ml Balance -75 ml 897 ml -128 ml Result Diagram: 12/13/15 0330 12/13/15 0330 Other Results Laboratory Tests Test 12/13/15 12/13/15 02:00 03:30 Urine Color DARK-BROWN Urine Turbidity CLOUDY Urine pH 5.5 Urine Specific [place] 1.023 Urine Protein 30 mg/dL Urine Glucose (UA) NEG mg/dL Urine Ketones NEG mg/dL Urine Occult Blood MOD Urine Nitrite NEG Urine Bilirubin SMALL Urine Urobilinogen LESS THAN 2.0 MG/DL Urine Leukocyte Esterase NEG Urine RBC 17 /hpf Urine WBC 22 /hpf Urine WBC Clumps OCC Urine Amorphous Sediment RARE Urine Hyaline Casts 7 /lpf Urine Granular Casts 110 /lpf Urine Mucus FEW /lpf Microscopic Urinalysis Comment CATH-CULTURE IND White Blood Count 11.1 TH/MM3 Red Blood Count 2.57 MIL/MM3 Hemoglobin 7.9 GM/DL Hematocrit 24.2 % Mean Corpuscular Volume 94.5 FL Mean Corpuscular Hemoglobin 30.6 PG Mean Corpuscular Hemoglobin 32.4 % Concent Red Cell Distribution Width 17.7 % Platelet Count 136 TH/MM3 Mean Platelet Volume 10.3 FL Neutrophils (%) (Auto) 69.8 % Lymphocytes (%) (Auto) 20.8 % Monocytes (%) (Auto) 7.1 % Eosinophils (%) (Auto) 1.3 % Basophils (%) (Auto) 1.0 % Neutrophils # (Auto) 7.8 TH/MM3 Lymphocytes # (Auto) 2.3 TH/MM3 Monocytes # (Auto) 0.8 TH/MM3 Eosinophils # (Auto) 0.1 TH/MM3 Basophils # (Auto) 0.1 TH/MM3 CBC Comment AUTO DIFF Sodium Level 151 MEQ/L Potassium Level 3.6 MEQ/L Chloride Level 113 MEQ/L Carbon Dioxide Level 30.4 MEQ/L Anion Gap 8 MEQ/L Blood Urea Nitrogen 66 MG/DL Creatinine 1.24 MG/DL Estimat Glomerular Filtration 61 ML/MIN Rate Random Glucose 118 MG/DL Calcium Level 8.3 MG/DL Imaging Last Impressions Chest X-Ray 12/08/15 0000 Signed Impressions: Service Date/Time: Tuesday, December 08, 2015 12:44 - CONCLUSION: No significant change has occurred. Arcadio Dickerson MD Abdomen X-Ray 12/06/15 0000 Signed Impressions: Service Date/Time: November 09:53 - CONCLUSION: Nonspecific KUB. Air is seen within a mildly distended colon but contrast is clearly seen in the rectum. Arnaldo Reyes MD Abdomen/Pelvis CT 12/04/15 0000 Signed Impressions: Service Date/Time: Friday, December 04, 2015 16:24 - CONCLUSION: 1. Mildly distended small bowel in the mid and lower abdomen. Contrast is clearly seen extending into the distal small bowel and ascending colon so a complete obstruction is not seen. A transition point is not seen. This pattern likely represents an ileus versus a partial obstruction. 2. Multiple nonobstructing renal stones. 3. Abnormal appearance of the spleen which appears to represent a splenule. It could be correlated if the patient has had either primary splenic removal or splenic injury and this is what is either left of the spleen or a developing splenule. This is likely of no significance. 4. Mild ascites. 5. Increased density within the gallbladder representing either tumefactive sludge or noncalcified stones. 6. Mild bilateral pleural effusions with prominent areas of lower lobe atelectasis or consolidation at the bases bilaterally. 7. Subacute to chronic bilateral rib fractures and multiple compression fractures in the lower thoracic and lumbar spine as described above. The patient does have a prior CT examination from 08/26/2014. All the compression deformities described above are new when compared to that scan. Arnaldo Reyes MD Head CT 12/02/15 1013 Signed Impressions: Service Date/Time: Wednesday, December 02, 2015 11:00 - CONCLUSION: 1. No intracranial abnormality is seen. 2. Air-fluid level in the right maxillary sinus. Arnaldo Reyes MD Objective Remarks GENERAL: Patient is 55yo critically ill intubated. SKIN: Warm and dry. HEAD: Normocephalic. EYES: No scleral icterus. No injection or drainage. NECK: Supple, trachea midline. No JVD or lymphadenopathy. Orally intubated CARDIOVASCULAR:Tachycardic without murmurs, gallops, or rubs. RESPIRATORY: Breath sounds equal bilaterally. No accessory muscle use. GASTROINTESTINAL: soft, non-tender, nondistended. MUSCULOSKELETAL: Generalized anasarca. Multiple open wounds in the lower extremity. RUE - s/p debridement and irrigation with wound VAC placement 12/07 BACK: Nontender without obvious deformity. No CVA tenderness. Neuro: intubated A/P Problem List: (1) History of splenectomy ICD Code: Z90.81 Status: Acute (2) Altered mental status ICD Code: R41.82 Status: Acute (3) Sepsis ICD Code: A41.9 Status: Acute (4) Respiratory failure ICD Code: J96.90 Status: Acute Assessment and Plan Neuro: - AMS due to sepsis - staph infection + E coli bacteriemia - On Fentanyl infusion for sedation,, monitor neuro status - 12/01 CT head negative, Ammonia level <10 on 12/08 CV Monitor HR and BP l keep MAP>65mmHg -Lactic acid 2.7 on 12/02, CVP monitoring Echo 12/07 EF 65-70%, grade I diastolic dysfunction Respiratory -Continue with vent support keep sat >92%- -Bronchodilators, ICU vent bundle. SBT daily as tarun. Check CXR ID - Severe sepsis - Necrotizing Fascitis - Staph Aureus -s/p debridement and application of the wound vac by Dr. Chavez on 12/09 - Debridement 12/01 p.m by hand surgery - E Coli - bacteriemia 12/01 - Wound cx 12/07 Staph Aureus Continue abx per ID ( IV Clinda, Azactam, Ancef) follow up on BC from 12/05...> 2/4 GPC, Staph Aureus Monitor for signs of infections ( Fever, WBC) Check BC x2 sets, follow up on sputum and urine cx C-diff PCR negative on 12/03 Wound care on case for multiple wound ulcers Renal -DEIRDRE Monitor renal function, I/O', electrolytes replacement per protocol Renal function improving with Cr 1.[address] on Free H20 250 ml Q8, monitor sodium level. GI - Continue TF- Glucerna @ 60ml/hr Hem Anemia Thrombocytopenia- likely 2nd sepsis ( improving) - monitor CBC, s/p transfusion 1u PLT Phereses on 12/05 - s/p transfusion 2u PRBC, 2u PLT 12/07 -INR 1.3 12/08 -Hep PLT ab negative on 12/03 Endo - ISS with accuchecks On Pepcid for GI prophylaxis -SCD for DVT prophylaxis- not on chemical AC 2nd thrombocytopenia ( resolving) Lines: Right subclavian CVP placed 12/01 Critical Care: The total critical care time was 30 minutes. Time to perform other separately billable procedures was not included in the critical care time. Problem Qualifiers (1) Altered mental status: Qualified Code: R41.0 - Delirium (2) Sepsis: Qualified Code: A41.9 - Sepsis, due to unspecified organism (3) Respiratory failure: Qualified Code: J96.00 - Acute respiratory failure, unspecified whether with hypoxia or hypercapnia Colin Morton MD Dec 13, 2015 08:29
[2015-12-13] MEDS: FREE WATER G-TUBE SCH ×3 (08:30→22:00)
[2015-12-13] MEDS: POVIDONE IODINE 10% OINT 30 GM TUBE TOPICAL SCH (09:00)
--- NOTE | 2015-12-13 09:08 | RADRPT ---
EXAM DATE/TIME: 12/13/2015 08:32 [facility] COMPARISON: CHEST SINGLE AP, December 08, 2015, 12:44. INDICATIONS : Short of breath MEDICAL HISTORY : Hypertension. SURGICAL HISTORY : None. ENCOUNTER: Subsequent ACUITY: 1 week PAIN SCORE: Non-responsive. LOCATION: Bilateral chest FINDINGS: Endotracheal tube tip is in satisfactory position. Right central line in right atrium. There is bilat eral mostly basilar airspace disease and small effusions. No pneumothorax. CONCLUSION: 1. Basilar airspace disease and small effusions, slightly increased from December 07. Endotracheal tub e and right central line in satisfactory position. NG tip in the stomach. Nomi Falcon MD on December 13, 2015 at 9:03 Board Certified Radiologist. This report was verified electronically.
[2015-12-13] MEDS: AZTREONAM INJ 2,000 MG in SODIUM CHLORIDE 0.9% INJ 100 ML IV SCH ×2 (10:32→14:41)
[2015-12-13] MEDS: CHLORHEXIDINE 0.12% (ORAL KIT) 15 ML CUP MT SCH ×2 (10:33→20:00)
[2015-12-13 10:39] LABS: BANDS 13 % (0-6); BASOPHILS 2 % (0-2); CORRECTED NUCLEATED RBC 9 /100 WBC (0-0); EOSINOPHILS 1 % (0-4); MYELOCYTES 3 % (0-0); NEUTROPHIL # MANUAL DIFF 6.1 TH/MM3 (1.8-7.7); PLASMA CELLS 4 % (0-0); PLATELET ESTIMATE SMEAR LOW (NORMAL); PLATELET MORPHOLOGY ENLARGED (NORMAL); POLYS (SEG NEUTROPHILS) 39 % (16-70); SCAN/DIFF FINAL DIFF MANUAL; WBC DIFF SAMPLE 100
[2015-12-13] MEDS ORDERED: BUMETANIDE INJ 1 MG/4 ML VIAL IV PUSH ONE (11:00)
--- NOTE | 2015-12-13 12:57 | PD.PLAS.PN ---
Subjective Remarks Patient remains intubated. He is alert and answers questions nonverbally. Objective Vital Signs Date Time Temp Pulse Resp B/P Pulse Ox O2 Delivery O2 Flow Rate FiO2 12/13/15 12:00 99.3 121 25 90/53 99 12/13/15 12:00 121 12/13/15 12:00 40 12/13/15 11:00 40 12/13/15 10:13 100 40 12/13/15 10:00 123 12/13/15 09:30 40 12/13/15 09:16 40 12/13/15 08:45 40 12/13/15 08:00 99.4 122 24 92/53 97 12/13/15 08:00 40 12/13/15 08:00 122 12/13/15 07:22 99 40 12/13/15 04:25 96 40 12/13/15 04:00 99.2 126 23 103/57 96 12/13/15 04:00 40 12/13/15 01:30 94 40 12/13/15 00:00 40 12/13/15 00:00 99.3 117 18 84/52 96 12/12/15 22:50 100 40 12/12/15 20:00 101.5 128 28 96/56 97 12/12/15 20:00 124 12/12/15 20:00 40 12/12/15 18:00 127 12/12/15 16:38 94 40 12/12/15 16:15 40 12/12/15 16:00 99.0 127 24 83/52 95 12/12/15 16:00 127 12/12/15 14:00 123 I/O 12/12/15 12/12/15 12/12/15 12/13/15 12/13/15 12/13/15 06:59 14:59 22:59 06:59 14:59 22:59 Intake Total 625 ml 1772 ml 372 ml 628 ml Output Total 700 ml 875 ml 500 ml 550 ml Balance -75 ml 897 ml -128 ml 78 ml IV Total 325 ml 800 ml 224 ml 303 ml Tube Feeding 300 ml 672 ml 148 ml 325 ml Other 300 ml Output Urine Total 550 ml 800 ml 500 ml 350 ml Stool Total 100 ml 50 ml 0 ml 200 ml Drainage Total 50 ml 25 ml Laboratory Tests Test 12/13/15 12/13/15 02:00 03:30 Urine Color DARK-BROWN Urine Turbidity CLOUDY Urine pH 5.5 Urine Specific [place] 1.023 Urine Protein 30 Urine Glucose (UA) NEG Urine Ketones NEG Urine Occult Blood MOD Urine Nitrite NEG Urine Bilirubin SMALL Urine Urobilinogen LESS THAN 2.0 Urine Leukocyte Esterase NEG Urine RBC 17 Urine WBC 22 Urine WBC Clumps OCC Urine Amorphous Sediment RARE Urine Hyaline Casts 7 Urine Granular Casts 110 Urine Mucus FEW Microscopic Urinalysis Comment CATH-CULTURE IND White Blood Count 11.1 Red Blood Count 2.57 Hemoglobin 7.9 Hematocrit 24.2 Mean Corpuscular Volume 94.5 Mean Corpuscular Hemoglobin 30.6 Mean Corpuscular Hemoglobin 32.4 Concent Red Cell Distribution Width 17.7 Platelet Count 136 Mean Platelet Volume 10.3 Neutrophils (%) (Auto) 69.8 Lymphocytes (%) (Auto) 20.8 Monocytes (%) (Auto) 7.1 Eosinophils (%) (Auto) 1.3 Basophils (%) (Auto) 1.0 Neutrophils # (Auto) 7.8 Lymphocytes # (Auto) 2.3 Monocytes # (Auto) 0.8 Eosinophils # (Auto) 0.1 Basophils # (Auto) 0.1 CBC Comment AUTO DIFF Differential Total Cells 100 Counted Neutrophils % (Manual) 39 Band Neutrophils % 13 Lymphocytes % 30 Monocytes % 8 Eosinophils % 1 Basophils % 2 Neutrophils # (Manual) 6.1 Myelocytes 3 Nucleated Red Blood Cells 9 Differential Comment FINAL DIFF MANUAL Plasma Cells 4 Platelet Estimate LOW Platelet Morphology Comment ENLARGED Sodium Level 151 Potassium Level 3.6 Chloride Level 113 Carbon Dioxide Level 30.4 Anion Gap 8 Blood Urea Nitrogen 66 Creatinine 1.24 Estimat Glomerular Filtration 61 Rate Random Glucose 118 Calcium Level 8.3 Date/Time Procedure Status Source Growth 12/13/15 09:40 Aerobic Blood Culture Received Blood Peripheral Pending 12/13/15 09:40 Anaerobic Blood Culture Received Blood Peripheral Pending 12/13/15 02:00 Urine Culture Received Urine Catheterized Urine Pending 12/13/15 02:00 Gram Stain - Final Resulted Sputum Endotracheal 12/13/15 02:00 Sputum Culture Resulted Sputum Endotracheal Pending 12/08/15 17:45 Fungal Smear - Final Resulted Wound Elbow NO FUNGAL ELEMENTS SEEN. 12/08/15 17:45 Fungal Culture Resulted Wound Elbow Pending 12/08/15 17:45 Acid Fast Stain - Final Resulted Wound Elbow NO ACID FAST BACILLI SEEN 12/08/15 17:45 Mycobacterial Culture Resulted Wound Elbow Pending Result Diagram: 12/13/15 0330 12/13/15 033 Exam Findings Wound vac is in place to right upper extremity. It is not removed for exam. Swelling of left hand and forearm is improved. Assessment and Plan Diagnosis: (1) Open wound of right upper extremity with complication Assessment and Plan The wound vac and dressings are left in place. We will return tomorrow during the vac change for reevaluation. Discussed with RN. Discharge Planning The exam, history, and the medical decision-making described in the above note were completed with the assistance of the mid-level provider. I reviewed and agree with the findings presented. I attest that I had a [id number] encounter with the patient on the same day, and personally performed and documented my assessment and findings in the medical record. Barbara Pedro M.D. [place] Dec 13, 2015 12:57
[2015-12-13] MEDS: VASOPRESSIN INJ 40 UNITS in DEXTROSE 5% IN WATER 100ML INJ 98 ML IV SCH ×2 (20:38)
[2015-12-14] VITALS (23 sets, daily range): BP systolic 81–112; BP diastolic 52–56; PULSE 119–125; RESP 19–23; TEMP 98.5–99.5; O2SAT 82–100
[2015-12-14] MEDS: AZTREONAM INJ 2,000 MG in SODIUM CHLORIDE 0.9% INJ 100 ML IV SCH ×3 (00:14→16:44)
[2015-12-14] MEDS: MORPHINE SULFATE 4 MG/ML INJ IV PUSH PRN (01:41)
[2015-12-14] MEDS: MEDIUM DOSE INSULIN NOVOLIN REGULAR SUPPLEMENTAL SCALE SQ SCH ×5 (02:00→22:00)
[2015-12-14] MEDS: RESP: ALBUTEROL 2.5 MG/IPRATROPIUM 0.5 MG NEB (SCH) NEB ×4 (03:42→19:28)
[2015-12-14] MEDS: CHLORHEXIDINE GLUCONATE 2 % 1 PACK (2 CLOTHS) TOP SCH (03:51)
[2015-12-14] MEDS: HYDROmorphone HCL PF 1 MG/ML VIAL IV PUSH PRN ×3 (03:52→21:28)
[2015-12-14] MEDS: CLINDAMYCIN INJ 900 MG in SODIUM CHLORIDE 0.9% INJ 100 ML IV SCH ×3 (05:05→21:27)
--- NOTE | 2015-12-14 05:22 | RADRPT ---
EXAM DATE/TIME: 12/14/2015 05:02 [facility] COMPARISON: CHEST SINGLE AP, December 13, 2015, 8:32. INDICATIONS : Evaluate lungs after respiratory failure and dropping Sats. MEDICAL HISTORY : Hypertension. SURGICAL HISTORY : None. ENCOUNTER: Subsequent ACUITY: 1 week PAIN SCORE: Non-responsive. LOCATION: Bilateral chest FINDINGS: A single view of the chest demonstrates worsening left basilar density. Bilateral airspace disease. T racheostomy tube, nasogastric and right subclavian central line are stable in position. The cardiomed iastinal contours are unremarkable. Osseous structures are intact. CONCLUSION: Worsening left basilar density with bilateral airspace disease. Wojciech Lockhart MD on December 14, 2015 at 5:20 Board Certified Radiologist. This report was verified electronically.
[2015-12-14 05:49] LABS: AUTOMATED NEUTROPHIL # 9.6 TH/MM3 (1.8-7.7); BASOPHIL # 0.2 TH/MM3 (0-0.2); BASOPHIL % 1.7 % (0.0-2.0); EOSINOPHIL # 0.1 TH/MM3 (0-0.4); HEMATOCRIT 23.7 % (39.0-51.0); LYMPH % 20.5 % (9.0-44.0); LYMPHOCYTE # 2.9 TH/MM3 (1.0-4.8); MEAN CELL VOLUME 94.8 FL (80.0-100.0); MEAN CORPUSCULAR HEMOGLOBIN 30.8 PG (27.0-34.0); MEAN CORPUSCULAR HGB CONC 32.5 % (32.0-36.0); MONO % 9.5 % (0.0-8.0); NEUT % 67.3 % (16.0-70.0); PLATELET COUNT 158 TH/MM3 (150-450); RED BLOOD COUNT 2.49 MIL/MM3 (4.50-5.90); RED CELL DISTRIBUTION WIDTH 18.1 % (11.6-17.2); WHITE BLOOD COUNT 14.3 TH/MM3 (4.0-11.0)
[2015-12-14 05:51] LABS: HEMO FLAGS AUTO DIFF
[2015-12-14 05:55] LABS: BLOOD GAS BASE EXCESS 4.9 mmol/L (-2-2); BLOOD GAS CARBOXYHEMOGLOBIN 1.5 % (0-4); BLOOD GAS HCO3 29 mmol/L (22-26); BLOOD GAS METHEMOGLOBIN 1.3 % (0-2); BLOOD GAS O2 HGB SATURATION 42 % (90-100); BLOOD GAS OXYGEN CONTENT 4.5 Vol % (12.0-20.0); BLOOD GAS PCO2 41 mmHg (38-42); BLOOD GAS PO2 26 mmHg (61-120); BLOOD GAS TOTAL HGB 7.5 G/DL (12.0-16.0); TEMP CORR TO 98.6
[2015-12-14 05:56] LABS: CRITICAL VALUE YES; OXYGEN DEVICE VENTILATOR
[2015-12-14 05:57] LABS: DRAW SITE RT BRACHIAL; FIO2 100 %; NUMBER OF ARTERIAL PUNCTURES 2; STAT YES; VENT SETTINGS AC450/14/+12
[2015-12-14] MEDS: FREE WATER G-TUBE SCH ×4 (06:00→23:10)
[2015-12-14 06:12] LABS: BICARBONATE 30.6 MEQ/L (21.0-32.0); POTASSIUM 3.5 MEQ/L (3.5-5.1)
[2015-12-14] MEDS: ceFAZolin 2 GM PREMIX 50 ML IV SCH ×3 (06:40→23:09)
--- NOTE | 2015-12-14 06:51 | RADRPT ---
EXAM DATE/TIME: 12/14/2015 06:12 [facility] COMPARISON: CHEST SINGLE AP, December 14, 2015, 5:02. INDICATIONS : Decreased oxygen sats today. RADIATION DOSE: 14.28 CTDIvol (mGy) MEDICAL HISTORY : Cardiovascular disease. Hypertension. Hernia, hiatal. SURGICAL HISTORY : None. ENCOUNTER: Initial ACUITY: 1 day PAIN SCALE: 0/10 LOCATION: chest TECHNIQUE: Volumetric scanning of the chest was performed. Using automated exposure control and adjustment of t he mA and/or kV according to patient size, radiation dose was kept as low as reasonably achievable to obtain optimal diagnostic quality images. FINDINGS: LUNGS: There is bibasilar consolidation. Patchy densities are seen within the right middle lobe and left upp er lobe. There is consolidation within the upper lobes posteriorly greater on the left. PLEURAE: There is no pleural thickening or pleural effusion on the left. Small right pleural effusion. MEDIASTINUM: The heart and great vessels demonstrate no acute abnormality. There is no mediastinal or hilar lymph adenopathy. Heart enlarged. AXILLAE: Within normal limits. No lymphadenopathy. MUSCULOSKELETAL: Old bilateral rib fractures. MISCELLANEOUS: Ascites in the upper abdomen. Endotracheal tube and nasogastric tube appear to be in good position. R ight subclavian central line with tip in the right atrium. CONCLUSION: 1. Cardiomegaly with bilateral consolidation, likely CHF. Pneumonia cannot be excluded. 2. Small right pleural effusion. Wojciech Lockhart MD on December 14, 2015 at 6:44 Board Certified Radiologist. This report was verified electronically.
[2015-12-14 08:09] LABS: BANDS 24 % (0-6); CORRECTED NUCLEATED RBC 8 /100 WBC (0-0); MYELOCYTES 3 % (0-0); NEUTROPHIL # MANUAL DIFF 10.3 TH/MM3 (1.8-7.7); POLYS (SEG NEUTROPHILS) 45 % (16-70); WBC DIFF SAMPLE 100
[2015-12-14 08:10] LABS: PLATELET ESTIMATE SMEAR NORMAL (NORMAL); PLATELET MORPHOLOGY NORMAL (NORMAL); POLYCHROMASIA 3.2 % (0.0-1.9); SCAN/DIFF FINAL DIFF MANUAL; TOXIC GRANULATION 2+ (NORMAL)
[2015-12-14] MEDS: CHLORHEXIDINE 0.12% (ORAL KIT) 15 ML CUP MT SCH ×2 (08:56→20:43)
--- NOTE | 2015-12-14 08:57 | HHI.CCPN ---
Subjective Remarks/Hospital Course 55-year-old male brought by EMS with altered mental status. He has been confused for 2 days but this morning has been the worst. He has history of chronic opiate medications including methadone and morphine that he takes for pain management and hence they gave him Narcan IV which brought the GCS up to 13. The blood glucose was 74. He has open wounds from his right upper and bilateral lower extremities. He has history of hepatitis C. Last week he was pealing and eating shrimps. Bedside blood sugar was 76 in the ER. He was tachycardic in 1 teens and was intubated in the ED for airway protection. Admitted to ICU with sepsis due to Staph Aureus hand infection and E. Coli bacteriemia. 12/05 Patient remains sedated with Fentanyl and intubated. On Levophed 3 mics, Vasopressin 0.03 mics and Bicarb drip. T:99.8 TF placed on hold OGT to LIWS last night - gastric drainage 525ml overnight. 12/06 Patient is sedated with Fentanyl and intubated, On Levophed 3 mics, off vasopressin. Gastric output 400ml in 24 hrs. KUB abdomen yesterday mildly distended colon otherwise non specific KUB. 12/07 Patient is off sedation remains intubated tolerated CPAP for most day yesterday. Afebrile. on no drips, tolerating tube feeds. 12/08 Patient went to OR yesterday for debridement and irrigation of right forearm and wound VAC placement. Given 2U PRBC and 2u PLT yesterday and currently receiving 1of 2 u additional PRBC. Hgb 7.7, PLT 43 this morning. Patient also started on pressors now on Levophed 10 mics. Vasopressin 0.04 mics. On no sedation. 12/09 Patient remains intubated off pressors, Afebrile. Tolerating tube feeds. Afebrile. 12/10 Patient is sedated with Fentanyl and intubated. Awake and follows commands off sedation. Afebrile. 12/11 Patient had ?SVT overnight given Lopressor 2.5mg IV x1, Remains intubated and sedated with Fentanyl. Afebrile. Tolerating TF. 12/12 Patient spoked fever last night with T: 101.5, sedated with Fentanyl and intubated. 12/13 Patient had an episode of desaturation overnight required increase FIO2/ PEE now on ACV with RR 14, TV 550, PEEP: 12, FIO2 60% with sats 100% CT chest performed overnight showed b/l consolidation and small pleural effusion. Had T: 100.0 last night. Objective - Vital Signs Date Time Temp Pulse Resp B/P Pulse Ox O2 Delivery O2 Flow Rate FiO2 12/14/15 07:18 97 60 12/14/15 06:00 125 12/14/15 04:00 99.4 23 92/54 12/11/15 08:21 Ventilator Intake and Output 12/13/15 12/13/15 12/14/15 08:00 16:00 00:00 Intake Total 628 ml 1457 ml 877 ml Output Total 550 ml 850 ml 600 ml Balance 78 ml 607 ml 277 ml Result Diagram: 12/14/15 0520 12/14/15 0520 Other Results Laboratory Tests Test 12/14/15 12/14/15 05:20 05:49 White Blood Count 14.3 TH/MM3 Red Blood Count 2.49 MIL/MM3 Hemoglobin 7.7 GM/DL Hematocrit 23.7 % Mean Corpuscular Volume 94.8 FL Mean Corpuscular Hemoglobin 30.8 PG Mean Corpuscular Hemoglobin 32.5 % Concent Red Cell Distribution Width 18.1 % Platelet Count 158 TH/MM3 Mean Platelet Volume 10.5 FL Neutrophils (%) (Auto) 67.3 % Lymphocytes (%) (Auto) 20.5 % Monocytes (%) (Auto) 9.5 % Eosinophils (%) (Auto) 1.0 % Basophils (%) (Auto) 1.7 % Neutrophils # (Auto) 9.6 TH/MM3 Lymphocytes # (Auto) 2.9 TH/MM3 Monocytes # (Auto) 1.4 TH/MM3 Eosinophils # (Auto) 0.1 TH/MM3 Basophils # (Auto) 0.2 TH/MM3 CBC Comment AUTO DIFF Differential Total Cells 100 Counted Neutrophils % (Manual) 45 % Band Neutrophils % 24 % Lymphocytes % 18 % Monocytes % 10 % Neutrophils # (Manual) 10.3 TH/MM3 Myelocytes 3 % Nucleated Red Blood Cells 8 /100 WBC Differential Comment FINAL DIFF MANUAL Toxic Granulation 2+ Platelet Estimate NORMAL Platelet Morphology Comment NORMAL Polychromasia 3.2 % Sodium Level 150 MEQ/L Potassium Level 3.5 MEQ/L Chloride Level 114 MEQ/L Carbon Dioxide Level 30.6 MEQ/L Anion Gap 5 MEQ/L Blood Urea Nitrogen 63 MG/DL Creatinine 1.41 MG/DL Estimat Glomerular Filtration 53 ML/MIN Rate Random Glucose 147 MG/DL Calcium Level 8.0 MG/DL Blood Gas Puncture Site RT BRACHIAL Blood Gas Patient Temperature 98.6 Blood Gas HCO3 29 mmol/L Blood Gas Base Excess 4.9 mmol/L Blood Gas Oxygen Saturation 42 % Arterial Blood pH 7.46 Arterial Blood Partial 41 mmHg Pressure CO2 Arterial Blood Partial 26 mmHg Pressure O2 Arterial Blood Oxygen Content 4.5 Vol % Arterial Blood 1.5 % Carboxyhemoglobin Arterial Blood Methemoglobin 1.3 % Blood Gas Hemoglobin 7.5 G/DL Oxygen Delivery Device VENTILATOR Blood Gas Ventilator Setting AC450/14/+12 Blood Gas Inspired Oxygen 100 % Imaging Last Impressions Chest X-Ray 12/14/15 0000 Signed Impressions: Service Date/Time: Monday, December 14, 2015 05:02 - CONCLUSION: Worsening left basilar density with bilateral airspace disease. Wojciech Lockhart MD Chest CT 12/14/15 0000 Signed Impressions: Service Date/Time: Monday, December 14, 2015 06:12 - CONCLUSION: 1. Cardiomegaly with bilateral consolidation, likely CHF. Pneumonia cannot be excluded. 2. Small right pleural effusion. Wojciech Lockhart MD Abdomen X-Ray 12/06/15 0000 Signed Impressions: Service Date/Time: November 09:53 - CONCLUSION: Nonspecific KUB. Air is seen within a mildly distended colon but contrast is clearly seen in the rectum. Arnaldo Reyes MD Abdomen/Pelvis CT 12/04/15 0000 Signed Impressions: Service Date/Time: Friday, December 04, 2015 16:24 - CONCLUSION: 1. Mildly distended small bowel in the mid and lower abdomen. Contrast is clearly seen extending into the distal small bowel and ascending colon so a complete obstruction is not seen. A transition point is not seen. This pattern likely represents an ileus versus a partial obstruction. 2. Multiple nonobstructing renal stones. 3. Abnormal appearance of the spleen which appears to represent a splenule. It could be correlated if the patient has had either primary splenic removal or splenic injury and this is what is either left of the spleen or a developing splenule. This is likely of no significance. 4. Mild ascites. 5. Increased density within the gallbladder representing either tumefactive sludge or noncalcified stones. 6. Mild bilateral pleural effusions with prominent areas of lower lobe atelectasis or consolidation at the bases bilaterally. 7. Subacute to chronic bilateral rib fractures and multiple compression fractures in the lower thoracic and lumbar spine as described above. The patient does have a prior CT examination from 08/26/2014. All the compression deformities described above are new when compared to that scan. Arnaldo Reyes MD Head CT 12/02/15 1013 Signed Impressions: Service Date/Time: Wednesday, December 02, 2015 11:00 - CONCLUSION: 1. No intracranial abnormality is seen. 2. Air-fluid level in the right maxillary sinus. Arnaldo Reyes MD Objective Remarks GENERAL: Patient is 55yo critically ill intubated. SKIN: Warm and dry. HEAD: Normocephalic. EYES: No scleral icterus. No injection or drainage. NECK: Supple, trachea midline. No JVD or lymphadenopathy. Orally intubated CARDIOVASCULAR:Tachycardic without murmurs, gallops, or rubs. RESPIRATORY: Breath sounds equal bilaterally. No accessory muscle use. GASTROINTESTINAL: soft, non-tender, nondistended. MUSCULOSKELETAL: Generalized anasarca. Multiple open wounds in the lower extremity. RUE - s/p debridement and irrigation with wound VAC placement 12/07 BACK: Nontender without obvious deformity. No CVA tenderness. Neuro: intubated A/P Problem List: (1) History of splenectomy ICD Code: Z90.81 Status: Acute (2) Altered mental status ICD Code: R41.82 Status: Acute (3) Sepsis ICD Code: A41.9 Status: Acute (4) Respiratory failure ICD Code: J96.90 Status: Acute Assessment and Plan Neuro: - AMS due to sepsis - staph infection + E coli bacteriemia - On Fentanyl infusion for sedation,, monitor neuro status -Place on Oxycodone 5mg Q8 PRN pain - 12/01 CT head negative, Ammonia level <10 on 12/08 CV Monitor HR and BP l keep MAP>65mmHg -Lactic acid 2.7 on 12/02, CVP monitoring Echo 12/07 EF 65-70%, grade I diastolic dysfunction Respiratory -Continue with vent support keep sat >92%- -Bronchodilators, ICU vent bundle. SBT daily as tarun. - CT chest today b/l consolidation with small right pleural effusion If no improvements in weaning trials over the next 48 hrs patient will likely end up need trach early next week. Discussed with daughter. ID - Severe sepsis - Necrotizing Fascitis - Staph Aureus -s/p debridement and application of the wound vac by Dr. Chavez on 12/09 - Debridement 12/01 p.m by hand surgery - E Coli - bacteriemia 12/01 - Wound cx 12/07 Staph Aureus Continue abx per ID ( IV Clinda, Azactam, Ancef) follow up on BC from 12/05...> 2/4 GPC, Staph Aureus Monitor for signs of infections ( Fever, WBC) Pancultured on 12/12 -NGTD C-diff PCR negative on 12/03 Wound care on case for multiple wound ulcers Seen by Dr. Pedro yesterday for possible wound VAC and dressing change today Renal -DEIRDRE Monitor renal function, I/O', electrolytes replacement per protocol Renal function improving with Cr 1.41 Change Free H20 250 ml Q6, monitor sodium level. Diurese with Bumex 1mg x1 ( fluid overload) GI - Continue TF- Glucerna @ 60ml/hr Hem Anemia Thrombocytopenia- likely 2nd sepsis ( improving) - monitor CBC, s/p transfusion 1u PLT Phereses on 12/05 - s/p transfusion 2u PRBC, 2u PLT 12/07 -INR 1.3 12/08 -Hep PLT ab negative on 12/03 Endo - ISS with accuchecks On Pepcid for GI prophylaxis -SCD for DVT prophylaxis- not on chemical AC 2nd thrombocytopenia ( resolving) Lines: d/c old central line, new Left IJ CVP placed today Spoke to patient's daughter today and updated her on patient's condition Critical Care: The total critical care time was 30 minutes. Time to perform other separately billable procedures was not included in the critical care time. Problem Qualifiers (1) Altered mental status: Qualified Code: R41.0 - Delirium (2) Sepsis: Qualified Code: A41.9 - Sepsis, due to unspecified organism (3) Respiratory failure: Qualified Code: J96.00 - Acute respiratory failure, unspecified whether with hypoxia or hypercapnia Colin Morton MD Dec 14, 2015 08:57
[2015-12-14] MEDS ORDERED: BUMETANIDE INJ 1 MG/4 ML VIAL IV PUSH ONE (09:00)
--- NOTE | 2015-12-14 10:18 | HHI.IDPN ---
Subjective Subjective Remarks clinically worse remains on vent, FiO2 went up to 70% no secretions Minimal UOP afebrile off pressors severe bandemia Quite hypotensive worsening bandemia and leukocytosis Antibiotics Ancef Clindamycin Azactam Lines RIJ and other Line sites with no e/o infection Past Medical History RA HCV sp splenectomy Allergies: Coded Allergies: Compazine (Verified Allergy, Severe, VOMITING, RASH, 08/26/14) SLURRED SPEECH, MIGRAINES Demerol (Verified Allergy, Severe, VOMITING, 08/26/14) Levaquin (Verified Allergy, Severe, 08/26/14) Penicillin (Verified Allergy, Severe, Rash, 08/26/14) Phenergan (Verified Allergy, Severe, VOMITING, 08/26/14) Uncoded Allergies: ANTI-CONVULSIVES (Allergy, Severe, MIGRAINES, SLURRED SPEECH,, 01/23/14) Objective . Vital Signs Date Time Temp Pulse Resp B/P Pulse Ox O2 Delivery O2 Flow Rate FiO2 12/14/15 08:00 123 12/14/15 08:00 60 12/14/15 08:00 98.9 123 22 81/53 97 12/14/15 07:18 97 60 12/14/15 06:13 100 100 12/14/15 06:00 125 12/14/15 05:49 99 100 12/14/15 04:59 84 100 12/14/15 04:00 121 12/14/15 04:00 40 12/14/15 04:00 99.4 121 23 92/54 96 12/14/15 03:42 99 40 12/14/15 02:00 121 12/14/15 00:24 98 40 12/14/15 00:00 99.5 119 19 85/55 100 12/14/15 00:00 40 12/14/15 00:00 119 12/13/15 22:00 125 12/13/15 20:06 98 40 12/13/15 20:00 45 12/13/15 20:00 100.0 127 24 101/58 99 12/13/15 20:00 127 12/13/15 18:00 125 12/13/15 16:16 93 40 12/13/15 16:00 99.6 123 23 92/52 93 12/13/15 16:00 123 12/13/15 16:00 40 12/13/15 14:00 120 12/13/15 13:30 24 12/13/15 12:59 100 50 12/13/15 12:00 99.3 121 25 90/53 99 12/13/15 12:00 121 12/13/15 12:00 40 12/13/15 11:00 40 12/13/15 10:13 100 40 12/13/15 10:00 123 12/13/15 12/13/15 12/14/15 15:00 23:00 07:00 Intake Total 1457 ml 877 ml 862 ml Output Total 850 ml 600 ml 550 ml Balance 607 ml 277 ml 312 ml IV Total 521 ml 403 ml 491 ml Tube Feeding 386 ml 474 ml 371 ml Other 550 ml Output Urine Total 650 ml 450 ml 250 ml Stool Total 100 ml 50 ml 200 ml Drainage Total 100 ml 100 ml 100 ml . Laboratory Tests Test 12/13/15 12/14/15 03:30 05:20 White Blood Count 11.1 TH/MM3 14.3 TH/MM3 Red Blood Count 2.57 MIL/MM3 2.49 MIL/MM3 Hemoglobin 7.9 GM/DL 7.7 GM/DL Hematocrit 24.2 % 23.7 % Mean Corpuscular Volume 94.5 FL 94.8 FL Mean Corpuscular Hemoglobin 30.6 PG 30.8 PG Mean Corpuscular Hemoglobin 32.4 % 32.5 % Concent Red Cell Distribution Width 17.7 % 18.1 % Platelet Count 136 TH/MM3 158 TH/MM3 Mean Platelet Volume 10.3 FL 10.5 FL Neutrophils (%) (Auto) 69.8 % 67.3 % Lymphocytes (%) (Auto) 20.8 % 20.5 % Monocytes (%) (Auto) 7.1 % 9.5 % Eosinophils (%) (Auto) 1.3 % 1.0 % Basophils (%) (Auto) 1.0 % 1.7 % Neutrophils # (Auto) 7.8 TH/MM3 9.6 TH/MM3 Lymphocytes # (Auto) 2.3 TH/MM3 2.9 TH/MM3 Monocytes # (Auto) 0.8 TH/MM3 1.4 TH/MM3 Eosinophils # (Auto) 0.1 TH/MM3 0.1 TH/MM3 Basophils # (Auto) 0.1 TH/MM3 0.2 TH/MM3 CBC Comment AUTO DIFF AUTO DIFF Differential Total Cells 100 100 Counted Neutrophils % (Manual) 39 % 45 % Band Neutrophils % 13 % 24 % Lymphocytes % 30 % 18 % Monocytes % 8 % 10 % Eosinophils % 1 % Basophils % 2 % Neutrophils # (Manual) 6.1 TH/MM3 10.3 TH/MM3 Myelocytes 3 % 3 % Nucleated Red Blood Cells 9 /100 WBC 8 /100 WBC Differential Comment FINAL DIFF FINAL DIFF MANUAL MANUAL Plasma Cells 4 % Platelet Estimate LOW NORMAL Platelet Morphology Comment ENLARGED NORMAL Toxic Granulation 2+ Polychromasia 3.2 % Laboratory Tests Test 12/13/15 12/14/15 03:30 05:20 Sodium Level 151 MEQ/L 150 MEQ/L Potassium Level 3.6 MEQ/L 3.5 MEQ/L Chloride Level 113 MEQ/L 114 MEQ/L Carbon Dioxide Level 30.4 MEQ/L 30.6 MEQ/L Anion Gap 8 MEQ/L 5 MEQ/L Blood Urea Nitrogen 66 MG/DL 63 MG/DL Creatinine 1.24 MG/DL 1.41 MG/DL Estimat Glomerular Filtration 61 ML/MIN 53 ML/MIN Rate Random Glucose 118 MG/DL 147 MG/DL Calcium Level 8.3 MG/DL 8.0 MG/DL Microbiology Date/Time Procedure Status Source Growth 12/13/15 02:00 Gram Stain - Final Resulted Sputum Endotracheal 12/13/15 02:00 Sputum Culture Resulted Sputum Endotracheal Pending 12/13/15 02:00 Urine Culture Received Urine Catheterized Urine Pending 12/13/15 06:00 Aerobic Blood Culture Received Blood Peripheral Pending 12/13/15 06:00 Anaerobic Blood Culture Received Blood Peripheral Pending 12/13/15 09:24 Aerobic Blood Culture Received Blood Peripheral Pending 12/13/15 09:24 Anaerobic Blood Culture Received Blood Peripheral Pending 12/13/15 09:40 Aerobic Blood Culture Received Blood Peripheral Pending 12/13/15 09:40 Anaerobic Blood Culture Received Blood Peripheral Pending Imaging Last Impressions Chest X-Ray 12/14/15 0000 Signed Impressions: Service Date/Time: Monday, December 14, 2015 05:02 - CONCLUSION: Worsening left basilar density with bilateral airspace disease. Wojciech Lockhart MD Chest CT 12/14/15 0000 Signed Impressions: Service Date/Time: Monday, December 14, 2015 06:12 - CONCLUSION: 1. Cardiomegaly with bilateral consolidation, likely CHF. Pneumonia cannot be excluded. 2. Small right pleural effusion. Wojciech Lockhart MD Abdomen X-Ray 12/06/15 0000 Signed Impressions: Service Date/Time: November 09:53 - CONCLUSION: Nonspecific KUB. Air is seen within a mildly distended colon but contrast is clearly seen in the rectum. Arnaldo Reyes MD Abdomen/Pelvis CT 12/04/15 0000 Signed Impressions: Service Date/Time: Friday, December 04, 2015 16:24 - CONCLUSION: 1. Mildly distended small bowel in the mid and lower abdomen. Contrast is clearly seen extending into the distal small bowel and ascending colon so a complete obstruction is not seen. A transition point is not seen. This pattern likely represents an ileus versus a partial obstruction. 2. Multiple nonobstructing renal stones. 3. Abnormal appearance of the spleen which appears to represent a splenule. It could be correlated if the patient has had either primary splenic removal or splenic injury and this is what is either left of the spleen or a developing splenule. This is likely of no significance. 4. Mild ascites. 5. Increased density within the gallbladder representing either tumefactive sludge or noncalcified stones. 6. Mild bilateral pleural effusions with prominent areas of lower lobe atelectasis or consolidation at the bases bilaterally. 7. Subacute to chronic bilateral rib fractures and multiple compression fractures in the lower thoracic and lumbar spine as described above. The patient does have a prior CT examination from 08/26/2014. All the compression deformities described above are new when compared to that scan. Arnaldo Reyes MD Head CT 12/02/15 1013 Signed Impressions: Service Date/Time: Wednesday, December 02, 2015 11:00 - CONCLUSION: 1. No intracranial abnormality is seen. 2. Air-fluid level in the right maxillary sinus. Arnaldo Reyes MD Physical Exam GENERAL: on the vent, NAD SKIN: + jaundice. Multiple wounds noted HEENT: Has scleral edema and icterus, ET in mouth. NO nasal drainage NECK: Trachea midline. Supple, nontender. CARDIOVASCULAR: systolic murmur in base of heart RESPIRATORY/CHEST: + some rhonchi on auscultation. Breath sounds equal bilaterally. GASTROINTESTINAL: Abdomen moderately distended, soft. No reaction to palpation GENITOURINARY: Sandoval catheter in place with clear, scrotum is very edematous. MUSCULOSKELETAL: Extremities no cyanosis, edema 3+. Has wound on L eg with slough, and smaller one on his R leg with slough. Has wound vac in his RUE with serosang d/c compartments appear soft Hand edematous but appears to be well perfused Diffuse soft pitting edema cw anasarca LUE with edema and stable area of necrotic skin on forearm NEUROLOGICAL: lethargic LINES: NO evidence of infection Assessment & Plan Remarks Septic shock with MODS - source is RUE severe nec fasc 2/2 MSSA MSSA bacteremia - 2/2 severe SSTI of RUE, MSSA - repet blood clx remain negative at 3 days Severe SSTI of RUE, MSSA - S/P I and D x 3 - limb threatening infx E.coli bacteremia -source is unclear - suspect GI source - repeat BC is negative Pt is worse hemodynamically - hypotensive, hypoxic Fluid overload B/l pu,lmonary conslidations, nbut sputum looks unremarkable not sugg of PNA Immunosuppressed PCN allergy, but no probs with Keflex -per mom Respiratory failure ARF/ DEIRDRE/ATN 2/2 sepsis - improving Abx associated diarrhea, C.diff negative Worsening fluid retention Critical hypoalbumenemia PLAN: Continue Clinda Continue Ancef Continue Azactam thru 12/14 (2 weeks) Follow blood clx untill final Monitor progress needs improvemnt of his protein nourishement status in order to heal Hand surgery to re-examine the arm today D/W RN d/w Argelia Bashir MD Dec 14, 2015 10:18
--- NOTE | 2015-12-14 12:09 | RADRPT ---
EXAM DATE/TIME: 12/14/2015 11:34 [facility] COMPARISON: CHEST SINGLE AP, December 14, 2015, 5:02. INDICATIONS : PICC placement. Evaluate for pneumothorax. MEDICAL HISTORY : Cardiovascular disease. Hypertension. SURGICAL HISTORY : None. ENCOUNTER: Subsequent ACUITY: 2 days PAIN SCORE: 0/10 LOCATION: chest FINDINGS: The cardiac silhouette is enlarged in transverse diameter. Support lines and tubes are in satisfactor y position. There is left lower lobe atelectasis versus pneumonia. A left sided internal jugular vein catheter is in place without pneumothorax with its tip in the superior vena cava. A right sided subc lavian right vein catheter is in place without pneumothorax with its tip in the superior vena cava. T here is no evidence of pneumothorax. The lungs are hypoinflated. CONCLUSION: 1. Cardiomegaly Left lower lobe atelectasis versus pneumonia. 2. Uncomplicated line placement. No evidence of pneumothorax. Ramone Hall MD on December 14, 2015 at 12:06 Board Certified Radiologist. This report was verified electronically.
--- NOTE | 2015-12-14 12:42 | PD.PROCEDR ---
Central Line Procedure REASON FOR PROCEDURE Central venous access PROCEDURE PERFORMED Central line placement: Left IJ CVP CONSENT Informed consent for procedure was obtained . The risks and benefits of the procedure were discussed to include but limited to bleeding, clot formation, infection, and even . ANESTHESIA Local injection of 1% Lidocaine DESCRIPTION OF THE PROCEDURE The patient was placed in supine, mild Trendelenburg position. The area was exposed and cleansed with ChloraPrep, times two. Large sterile drape was used to cover the patient, with the site exposed, under sterile conditions including cap, face mask, sterile gown, and sterile gloves. On single attempt, the introducer needle was inserted with negative pressure in syringe and venous flash was obtained. The guide wire was then advanced without any restriction and the needle was removed. The dilator was used without any complications. Using Seldinger technique the catheter was advanced over the guide wire to a depth of 20 centimeters. The guide wire was removed. All ports were aspirated with dark venous blood return and flushed easily with sterile saline. All ports were capped. Antibiotic disc was placed around central line at puncture site. The central line was secured to the skin with two interrupted 2.0 silk sutures. The area was bandaged with sterile see-through central line bandage. RADIOLOGICAL DATA US guided to localize left IJ vein, CXR ordered to verify line placement COMPLICATIONS: No apparent complications ESTIMATED BLOOD LOSS: Less than 1 cc. Colin Morton MD Dec 14, 2015 12:42
[2015-12-14] MEDS: POVIDONE IODINE 10% OINT 30 GM TUBE TOPICAL SCH (15:22)
[2015-12-14] MEDS: fentaNYL 2,500 MCG/NS 250 ML IV SCH (15:46)
--- NOTE | 2015-12-14 16:08 | PD.PLAS.PN ---
Subjective Remarks Patient is lying comfortably. He remains intubated. Objective Vital Signs Date Time Temp Pulse Resp B/P Pulse Ox O2 Delivery O2 Flow Rate FiO2 12/14/15 15:51 82 60 12/14/15 12:49 97 40 12/14/15 10:18 60 12/14/15 10:12 70 12/14/15 10:10 100 12/14/15 10:00 120 12/14/15 09:56 96 45 12/14/15 08:00 123 12/14/15 08:00 60 12/14/15 08:00 98.9 123 22 81/53 97 12/14/15 07:18 97 60 12/14/15 06:13 100 100 12/14/15 06:00 125 12/14/15 05:49 99 100 12/14/15 04:59 84 100 12/14/15 04:00 121 12/14/15 04:00 40 12/14/15 04:00 99.4 121 23 92/54 96 12/14/15 03:42 99 40 12/14/15 02:00 121 12/14/15 00:24 98 40 12/14/15 00:00 99.5 119 19 85/55 100 12/14/15 00:00 40 12/14/15 00:00 119 12/13/15 22:00 125 12/13/15 20:06 98 40 12/13/15 20:00 45 12/13/15 20:00 100.0 127 24 101/58 99 12/13/15 20:00 127 12/13/15 18:00 125 12/13/15 16:16 93 40 I/O 12/13/15 12/13/15 12/13/15 12/14/15 12/14/15 12/14/15 07:00 15:00 23:00 07:00 15:00 23:00 Intake Total 628 ml 1457 ml 877 ml 862 ml Output Total 550 ml 850 ml 600 ml 550 ml Balance 78 ml 607 ml 277 ml 312 ml IV Total 303 ml 521 ml 403 ml 491 ml Tube Feeding 325 ml 386 ml 474 ml 371 ml Other 550 ml Output Urine Total 350 ml 650 ml 450 ml 250 ml Stool Total 200 ml 100 ml 50 ml 200 ml Drainage Total 100 ml 100 ml 100 ml Laboratory Tests Test 12/14/15 12/14/15 05:20 05:49 White Blood Count 14.3 Red Blood Count 2.49 Hemoglobin 7.7 Hematocrit 23.7 Mean Corpuscular Volume 94.8 Mean Corpuscular Hemoglobin 30.8 Mean Corpuscular Hemoglobin 32.5 Concent Red Cell Distribution Width 18.1 Platelet Count 158 Mean Platelet Volume 10.5 Neutrophils (%) (Auto) 67.3 Lymphocytes (%) (Auto) 20.5 Monocytes (%) (Auto) 9.5 Eosinophils (%) (Auto) 1.0 Basophils (%) (Auto) 1.7 Neutrophils # (Auto) 9.6 Lymphocytes # (Auto) 2.9 Monocytes # (Auto) 1.4 Eosinophils # (Auto) 0.1 Basophils # (Auto) 0.2 CBC Comment AUTO DIFF Differential Total Cells 100 Counted Neutrophils % (Manual) 45 Band Neutrophils % 24 Lymphocytes % 18 Monocytes % 10 Neutrophils # (Manual) 10.3 Myelocytes 3 Nucleated Red Blood Cells 8 Differential Comment FINAL DIFF MANUAL Toxic Granulation 2+ Platelet Estimate NORMAL Platelet Morphology Comment NORMAL Polychromasia 3.2 Sodium Level 150 Potassium Level 3.5 Chloride Level 114 Carbon Dioxide Level 30.6 Anion Gap 5 Blood Urea Nitrogen 63 Creatinine 1.41 Estimat Glomerular Filtration 53 Rate Random Glucose 147 Calcium Level 8.0 Blood Gas Puncture Site RT BRACHIAL Blood Gas Patient Temperature 98.6 Blood Gas HCO3 29 Blood Gas Base Excess 4.9 Blood Gas Oxygen Saturation 42 Arterial Blood pH 7.46 Arterial Blood Partial 41 Pressure CO2 Arterial Blood Partial 26 Pressure O2 Arterial Blood Oxygen Content 4.5 Arterial Blood 1.5 Carboxyhemoglobin Arterial Blood Methemoglobin 1.3 Blood Gas Hemoglobin 7.5 Oxygen Delivery Device VENTILATOR Blood Gas Ventilator Setting AC450/14/+12 Blood Gas Inspired Oxygen 100 Date/Time Procedure Status Source Growth 12/13/15 09:40 Aerobic Blood Culture - Preliminary Resulted Blood Peripheral NO GROWTH IN 1 DAY 12/13/15 09:40 Anaerobic Blood Culture - Preliminary Resulted Blood Peripheral NO GROWTH IN 1 DAY 12/13/15 06:00 Aerobic Blood Culture Received Blood Peripheral Pending 12/13/15 06:00 Anaerobic Blood Culture Received Blood Peripheral Pending 12/13/15 02:00 Urine Culture - Preliminary Resulted Urine Catheterized Urine NO GROWTH IN 24 HOURS. 12/13/15 02:00 Gram Stain - Final Resulted Sputum Endotracheal 12/13/15 02:00 Sputum Culture - Preliminary Resulted Sputum Endotracheal HEAVY GROWTH NORMAL RESPIRATORY DORI... Result Diagram: 12/14/1551912/14/15519 Exam Findings Wound vac is in place to right upper extremity. Wound vac is removed for exam. Wound is clean and beginning to heal. There is no significant odor. Periwound skin is macerated without evidence of infection. Patient has multiple excoriations over the extremities and back. No evidence of infection. Assessment and Plan Diagnosis: (1) Open wound of right upper extremity with complication Assessment and Plan Wound vac to be reapplied by wound care nurse. Excoriations of the back and extremities to be dressed with povidone iodine ointment and nonstick dressing. RN and wound care nurse present for evaluation. Discharge Planning The exam, history, and the medical decision-making described in the above note were completed with the assistance of the mid-level provider. I reviewed and agree with the findings presented. I attest that I had a [id number] encounter with the patient on the same day, and personally performed and documented my assessment and findings in the medical record. Barbara Pedro M.D. [place] Dec 14, 2015 16:08
[2015-12-14] MEDS ORDERED: SODIUM CHLORID 0.9% 500 ML INJ 500 ML IV ONE (17:30)
[2015-12-14] MEDS: VASOPRESSIN INJ 40 UNITS in DEXTROSE 5% IN WATER 100ML INJ 98 ML IV SCH ×2 (19:00)
[2015-12-15] VITALS (20 sets, daily range): BP systolic 83–101; BP diastolic 45–61; PULSE 114–127; RESP 20–29; TEMP 99–100.2; O2SAT 94–100
[2015-12-15] MEDS: AZTREONAM INJ 2,000 MG in SODIUM CHLORIDE 0.9% INJ 100 ML IV SCH ×3 (00:34→15:43)
[2015-12-15] MEDS: MEDIUM DOSE INSULIN NOVOLIN REGULAR SUPPLEMENTAL SCALE SQ SCH ×6 (02:00→22:28)
[2015-12-15] MEDS: RESP: ALBUTEROL 2.5 MG/IPRATROPIUM 0.5 MG NEB (SCH) NEB ×4 (03:10→19:13)
[2015-12-15] MEDS: CHLORHEXIDINE GLUCONATE 2 % 1 PACK (2 CLOTHS) TOP SCH (04:00)
[2015-12-15] MEDS: NOREPINEPHRINE-DEXTROSE DRIP 250 ML IV SCH ×3 (04:29→12:39)
[2015-12-15] MEDS: CLINDAMYCIN INJ 900 MG in SODIUM CHLORIDE 0.9% INJ 100 ML IV SCH ×3 (05:00→20:50)
[2015-12-15 05:08] LABS: BASOPHIL # 0.2 TH/MM3 (0-0.2); BASOPHIL % 1.5 % (0.0-2.0); EOSINOPHIL # 0.3 TH/MM3 (0-0.4); EOSINOPHIL % 1.7 % (0.0-4.0); HEMATOCRIT 21.1 % (39.0-51.0); LYMPH % 18.1 % (9.0-44.0); LYMPHOCYTE # 2.9 TH/MM3 (1.0-4.8); MEAN CELL VOLUME 95.7 FL (80.0-100.0); MEAN CORPUSCULAR HEMOGLOBIN 31.6 PG (27.0-34.0); MONO % 10.6 % (0.0-8.0); NEUT % 68.1 % (16.0-70.0); PLATELET COUNT 134 TH/MM3 (150-450); RED BLOOD COUNT 2.21 MIL/MM3 (4.50-5.90); RED CELL DISTRIBUTION WIDTH 18.8 % (11.6-17.2); WHITE BLOOD COUNT 16.2 TH/MM3 (4.0-11.0)
[2015-12-15 05:15] LABS: HEMO FLAGS AUTO DIFF
[2015-12-15 05:55] LABS: BICARBONATE 29.1 MEQ/L (21.0-32.0); MAGNESIUM 2.2 MG/DL (1.5-2.5); POTASSIUM 3.5 MEQ/L (3.5-5.1)
[2015-12-15] MEDS: FREE WATER G-TUBE SCH ×3 (06:00→17:27)
[2015-12-15] MEDS: fentaNYL 2,500 MCG/NS 250 ML IV SCH (06:20)
[2015-12-15] MEDS: ceFAZolin 2 GM PREMIX 50 ML IV SCH ×2 (06:20→15:43)
[2015-12-15 07:38] LABS: BANDS 21 % (0-6); CORRECTED NUCLEATED RBC 21 /100 WBC (0-0); METAMYELOCYTES 6 % (0-1); MYELOCYTES 4 % (0-0); NEUTROPHIL # MANUAL DIFF 13.1 TH/MM3 (1.8-7.7); POLYS (SEG NEUTROPHILS) 49 % (16-70); PROMYELOCYTES 1 % (0-0); WBC DIFF SAMPLE 100
[2015-12-15 07:40] LABS: PLATELET ESTIMATE SMEAR LOW (NORMAL); PLATELET MORPHOLOGY ENLARGED (NORMAL); SCAN/DIFF FINAL DIFF MANUAL
[2015-12-15] MEDS: CHLORHEXIDINE 0.12% (ORAL KIT) 15 ML CUP MT SCH ×2 (08:00→20:49)
[2015-12-15] MEDS: POVIDONE IODINE 10% OINT 30 GM TUBE TOPICAL SCH (09:00)
--- NOTE | 2015-12-15 16:29 | HHI.CCPN ---
Subjective Remarks/Hospital Course 55-year-old male brought by EMS with altered mental status. He has been confused for 2 days but this morning has been the worst. He has history of chronic opiate medications including methadone and morphine that he takes for pain management and hence they gave him Narcan IV which brought the GCS up to 13. The blood glucose was 74. He has open wounds from his right upper and bilateral lower extremities. He has history of hepatitis C. Last week he was pealing and eating shrimps. Bedside blood sugar was 76 in the ER. He was tachycardic in 1 teens and was intubated in the ED for airway protection. Admitted to ICU with sepsis due to Staph Aureus hand infection and E. Coli bacteriemia. 12/05 Patient remains sedated with Fentanyl and intubated. On Levophed 3 mics, Vasopressin 0.03 mics and Bicarb drip. T:99.8 TF placed on hold OGT to LIWS last night - gastric drainage 525ml overnight. 12/06 Patient is sedated with Fentanyl and intubated, On Levophed 3 mics, off vasopressin. Gastric output 400ml in 24 hrs. KUB abdomen yesterday mildly distended colon otherwise non specific KUB. 12/07 Patient is off sedation remains intubated tolerated CPAP for most day yesterday. Afebrile. on no drips, tolerating tube feeds. 12/08 Patient went to OR yesterday for debridement and irrigation of right forearm and wound VAC placement. Given 2U PRBC and 2u PLT yesterday and currently receiving 1of 2 u additional PRBC. Hgb 7.7, PLT 43 this morning. Patient also started on pressors now on Levophed 10 mics. Vasopressin 0.04 mics. On no sedation. 12/09 Patient remains intubated off pressors, Afebrile. Tolerating tube feeds. Afebrile. 12/10 Patient is sedated with Fentanyl and intubated. Awake and follows commands off sedation. Afebrile. 12/11 Patient had ?SVT overnight given Lopressor 2.5mg IV x1, Remains intubated and sedated with Fentanyl. Afebrile. Tolerating TF. 12/12 Patient spoked fever last night with T: 101.5, sedated with Fentanyl and intubated. 12/13 Patient had an episode of desaturation overnight required increase FIO2/ PEE now on ACV with RR 14, TV 550, PEEP: 12, FIO2 60% with sats 100% CT chest performed overnight showed b/l consolidation and small pleural effusion. Had T: 100.0 last night. Subjective: 12/14 Tolerating PS 15/CPAP 10 FiO2 40% with rSBI 38, weaning. . Awake and alert , following commands. Hypotensive overnight and levophed restarted up to 12 mcg/ min. Nurse has been weaning throughout the day. Suspected adrenal insufficiency as he was on prednisone as outpatient for gout and has not been on stress dose steroids. Objective - Vital Signs Date Time Temp Pulse Resp B/P Pulse Ox O2 Delivery O2 Flow Rate FiO2 12/15/15 16:00 99.2 123 21 91/61 96 12/15/15 15:24 40 12/11/15 08:21 Ventilator Intake and Output 12/14/15 12/14/15 12/15/15 08:00 16:00 00:00 Intake Total 862 ml 1375 ml 1510 ml Output Total 550 ml 200 ml 475 ml Balance 312 ml 1175 ml 1035 ml Result Diagram: 12/15/15 0442 12/15/15 0442 Other Results Laboratory Tests Test 12/14/15 12/14/15 05:20 05:49 White Blood Count 14.3 TH/MM3 Red Blood Count 2.49 MIL/MM3 Hemoglobin 7.7 GM/DL Hematocrit 23.7 % Mean Corpuscular Volume 94.8 FL Mean Corpuscular Hemoglobin 30.8 PG Mean Corpuscular Hemoglobin 32.5 % Concent Red Cell Distribution Width 18.1 % Platelet Count 158 TH/MM3 Mean Platelet Volume 10.5 FL Neutrophils (%) (Auto) 67.3 % Lymphocytes (%) (Auto) 20.5 % Monocytes (%) (Auto) 9.5 % Eosinophils (%) (Auto) 1.0 % Basophils (%) (Auto) 1.7 % Neutrophils # (Auto) 9.6 TH/MM3 Lymphocytes # (Auto) 2.9 TH/MM3 Monocytes # (Auto) 1.4 TH/MM3 Eosinophils # (Auto) 0.1 TH/MM3 Basophils # (Auto) 0.2 TH/MM3 CBC Comment AUTO DIFF Differential Total Cells 100 Counted Neutrophils % (Manual) 45 % Band Neutrophils % 24 % Lymphocytes % 18 % Monocytes % 10 % Neutrophils # (Manual) 10.3 TH/MM3 Myelocytes 3 % Nucleated Red Blood Cells 8 /100 WBC Differential Comment FINAL DIFF MANUAL Toxic Granulation 2+ Platelet Estimate NORMAL Platelet Morphology Comment NORMAL Polychromasia 3.2 % Sodium Level 150 MEQ/L Potassium Level 3.5 MEQ/L Chloride Level 114 MEQ/L Carbon Dioxide Level 30.6 MEQ/L Anion Gap 5 MEQ/L Blood Urea Nitrogen 63 MG/DL Creatinine 1.41 MG/DL Estimat Glomerular Filtration 53 ML/MIN Rate Random Glucose 147 MG/DL Calcium Level 8.0 MG/DL Blood Gas Puncture Site RT BRACHIAL Blood Gas Patient Temperature 98.6 Blood Gas HCO3 29 mmol/L Blood Gas Base Excess 4.9 mmol/L Blood Gas Oxygen Saturation 42 % Arterial Blood pH 7.46 Arterial Blood Partial 41 mmHg Pressure CO2 Arterial Blood Partial 26 mmHg Pressure O2 Arterial Blood Oxygen Content 4.5 Vol % Arterial Blood 1.5 % Carboxyhemoglobin Arterial Blood Methemoglobin 1.3 % Blood Gas Hemoglobin 7.5 G/DL Oxygen Delivery Device VENTILATOR Blood Gas Ventilator Setting AC450/14/+12 Blood Gas Inspired Oxygen 100 % Imaging Last Impressions Chest X-Ray 12/14/15 0000 Signed Impressions: Service Date/Time: Monday, December 14, 2015 05:02 - CONCLUSION: Worsening left basilar density with bilateral airspace disease. Wojciech Lockhart MD Chest CT 12/14/15 0000 Signed Impressions: Service Date/Time: Monday, December 14, 2015 06:12 - CONCLUSION: 1. Cardiomegaly with bilateral consolidation, likely CHF. Pneumonia cannot be excluded. 2. Small right pleural effusion. Wojciech Lockhart MD Abdomen X-Ray 12/06/15 0000 Signed Impressions: Service Date/Time: November 09:53 - CONCLUSION: Nonspecific KUB. Air is seen within a mildly distended colon but contrast is clearly seen in the rectum. Arnaldo Reyes MD Abdomen/Pelvis CT 12/04/15 0000 Signed Impressions: Service Date/Time: Friday, December 04, 2015 16:24 - CONCLUSION: 1. Mildly distended small bowel in the mid and lower abdomen. Contrast is clearly seen extending into the distal small bowel and ascending colon so a complete obstruction is not seen. A transition point is not seen. This pattern likely represents an ileus versus a partial obstruction. 2. Multiple nonobstructing renal stones. 3. Abnormal appearance of the spleen which appears to represent a splenule. It could be correlated if the patient has had either primary splenic removal or splenic injury and this is what is either left of the spleen or a developing splenule. This is likely of no significance. 4. Mild ascites. 5. Increased density within the gallbladder representing either tumefactive sludge or noncalcified stones. 6. Mild bilateral pleural effusions with prominent areas of lower lobe atelectasis or consolidation at the bases bilaterally. 7. Subacute to chronic bilateral rib fractures and multiple compression fractures in the lower thoracic and lumbar spine as described above. The patient does have a prior CT examination from 08/26/2014. All the compression deformities described above are new when compared to that scan. Arnaldo Reyes MD Head CT 12/02/15 1013 Signed Impressions: Service Date/Time: Wednesday, December 02, 2015 11:00 - CONCLUSION: 1. No intracranial abnormality is seen. 2. Air-fluid level in the right maxillary sinus. Arnaldo Reyes MD Objective Remarks Drips: Fentanyl 50 g/hr Levophed 7 mcg/min GENERAL: Patient is 55yo critically ill intubated, awake and following commands. SKIN: Warm and dry. HEAD: Normocephalic. EYES: No scleral icterus. No injection or drainage. NECK: Supple, trachea midline. No JVD or lymphadenopathy. Orally intubated CARDIOVASCULAR:Tachycardic without murmurs, gallops, or rubs. RESPIRATORY: Breath sounds equal bilaterally. No accessory muscle use. Tolerating CPAP 15/10 with RSBI in 40s. GASTROINTESTINAL: soft, non-tender, nondistended. MUSCULOSKELETAL: Generalized anasarca. Multiple open wounds in the lower extremity. RUE - with wound vac in place. L upper extremity dressing in place. NEURO: Awake and alert, nods and shakes head to questions. Moves fingers bilaterally to command. 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 -On Oxycodone 5mg Q8 PRN pain - 12/01 CT head negative, Ammonia level <10 on 12/08 CV Septic shock -Off vasopressin. On Levophed 7 mcg/min. ?adrenal insufficiency as he previously had been on outpatient prednisone. -Give decadron 4 mg IV. Check cortisol level. Echo 12/07 EF 65-70%, grade I diastolic dysfunction Respiratory -Continue with vent support keep sat >92%- -Bronchodilators, ICU vent bundle. SBT daily as tarun. Wean PEEP to 8 - CT chest 12/13 b/l consolidation with small right pleural effusion Dr. Rodas discussed with daughter, If no improvements in weaning trials over the next 48 hrs patient will likely end up need trach early next week. Patient currently appears to be weaning, will continue weaning efforts. ID - Severe sepsis - Necrotizing Fascitis - MSSA on wound culture 12/07. -Ecoli bacteremia 12/01 -MSSA bacteremia 12/05. Cleared on f/u blood culture 12/07, 12/12. - Debridement 12/01 p.m at bedside by Dr Pedro and Dr. Hartmann -R hand, forearm and olecrenon bursa I and D and Wound vac 12/07 Dr Chavez. Continue abx per ID ( IV Clinda, Azactam, Ancef) Pancultures 12/12 negative. Repeat panculture if fever or clinical change. Noted increasing stool output 600. Will recheck C diff. Renal -DEIRDRE Hypernatremia Monitor renal function, I/O', electrolytes replacement per protocol Cr 1.73 On Free H20 250 ml Q6, sodium level downtrended. Received Bumex 12/13, will hold off on diuresis as he is back on pressors. GI - Continue TF- Glucerna @ goal arate 60ml/hr per nutrition recs. Hem Anemia Thrombocytopenia- likely 2nd sepsis ( improving) - monitor CBC, s/p transfusion 1u PLT Phereses on 12/05 - s/p transfusion 2u PRBC, 2u PLT 12/07 -INR 1.3 12/08 -Hep PLT ab negative on 12/03 -Transfuse 1 unit PRBC due to Hgb 7 Endo - Medium dose ISS with accuchecks q4, getting 9 units coverage. Glucose 199, adding decadron, tolerating tube feeds so will add Detemir 5 subcut qhs. On Pepcid for GI prophylaxis -SCD for DVT prophylaxis- not on chemical AC 2nd thrombocytopenia however now resolving and patient is at risk so plan to resume soon if hgb remains stable. Lines:L IJ CVL placed 12/13 #2. Critical Care: CCT 32 minutes exclusive of separately billable procedures Problem Qualifiers (1) Altered mental status: Qualified Code: R41.0 - Delirium (2) Sepsis: Qualified Code: A41.9 - Sepsis, due to unspecified organism (3) Respiratory failure: Qualified Code: J96.00 - Acute respiratory failure, unspecified whether with hypoxia or hypercapnia Isabela Gonzalez MD Dec 15, 2015 16:29 Isabela Gonzalez MD Dec 15, 2015 16:29
[2015-12-15] MEDS ORDERED: DEXAMETHASONE SOD PHOS 4 MG/ML VIAL IV PUSH ONE (17:00)
[2015-12-15] MEDS ORDERED: SODIUM CHLOR 0.9% 250 ML INJ 250 ML IV ONE (17:30)
[2015-12-15 19:00] LABS: TRANSFERRIN IRON PROFILE 79 MG/DL (200-360)
[2015-12-15] MEDS: MORPHINE SULFATE 4 MG/ML INJ IV PUSH PRN (20:49)
[2015-12-15] MEDS: SODIUM CHLORIDE 0.9% FLUSH 5 ML FLUSH IVF PRN (20:49)
[2015-12-15] MEDS: INSULIN DETEMIR 100 UNITS/ML VIAL SQ SCH (20:50)
[2015-12-15 21:11] LABS: C. DIFF EPI 027 PRESUMPTIVE NEGATIVE (NEGATIVE); C. DIFF TOXIN PCR NEGATIVE (NEGATIVE)
[2015-12-16] VITALS (25 sets, daily range): BP systolic 92–129; BP diastolic 51–85; PULSE 98–123; RESP 13–34; TEMP 95.4–99.7; O2SAT 93–100
[2015-12-16] MEDS: ceFAZolin 2 GM PREMIX 50 ML IV SCH ×3 (00:20→15:36)
[2015-12-16] MEDS: MEDIUM DOSE INSULIN NOVOLIN REGULAR SUPPLEMENTAL SCALE SQ SCH ×3 (01:52→11:16)
[2015-12-16] MEDS: RESP: ALBUTEROL 2.5 MG/IPRATROPIUM 0.5 MG NEB (SCH) NEB ×4 (02:20→19:11)
[2015-12-16] MEDS: CHLORHEXIDINE GLUCONATE 2 % 1 PACK (2 CLOTHS) TOP SCH (04:00)
[2015-12-16] MEDS: MORPHINE SULFATE 4 MG/ML INJ IV PUSH PRN (04:17)
[2015-12-16 04:50] LABS: AUTOMATED NEUTROPHIL # 11.4 TH/MM3 (1.8-7.7); BASOPHIL # 0.1 TH/MM3 (0-0.2); BASOPHIL % 0.9 % (0.0-2.0); HEMO FLAGS AUTO DIFF; LYMPH % 10.9 % (9.0-44.0); LYMPHOCYTE # 1.5 TH/MM3 (1.0-4.8); MEAN CELL VOLUME 92.2 FL (80.0-100.0); MEAN CORPUSCULAR HEMOGLOBIN 30.2 PG (27.0-34.0); MEAN CORPUSCULAR HGB CONC 32.8 % (32.0-36.0); MONO % 5.9 % (0.0-8.0); NEUT % 82.3 % (16.0-70.0); PLATELET COUNT 111 TH/MM3 (150-450); RED BLOOD COUNT 2.18 MIL/MM3 (4.50-5.90); RED CELL DISTRIBUTION WIDTH 17.4 % (11.6-17.2); WHITE BLOOD COUNT 13.9 TH/MM3 (4.0-11.0)
[2015-12-16 04:54] LABS: HEMATOCRIT 20.1 % (39.0-51.0)
[2015-12-16 05:13] LABS: MAGNESIUM 2.1 MG/DL (1.5-2.5); POTASSIUM 3.9 MEQ/L (3.5-5.1)
[2015-12-16] MEDS: FREE WATER G-TUBE SCH ×3 (06:00→12:00)
[2015-12-16] MEDS: CLINDAMYCIN INJ 900 MG in SODIUM CHLORIDE 0.9% INJ 100 ML IV SCH ×3 (06:20→22:11)
[2015-12-16] MEDS: fentaNYL 2,500 MCG/NS 250 ML IV SCH (06:35)
[2015-12-16 07:20] LABS: BANDS 10 % (0-6); BASOPHILS 1 % (0-2); CORRECTED NUCLEATED RBC 13 /100 WBC (0-0); METAMYELOCYTES 4 % (0-1); MYELOCYTES 1 % (0-0); NEUTROPHIL # MANUAL DIFF 11.8 TH/MM3 (1.8-7.7); PLATELET ESTIMATE SMEAR LOW (NORMAL); PLATELET MORPHOLOGY ENLARGED (NORMAL); POLYS (SEG NEUTROPHILS) 70 % (16-70); WBC DIFF SAMPLE 100
[2015-12-16 07:21] LABS: SCAN/DIFF FINAL DIFF MANUAL
[2015-12-16] MEDS ORDERED: ALLO300T2 PO (07:25)
[2015-12-16] MEDS ORDERED: HYDR25TA5 PO (07:27)
[2015-12-16] MEDS ORDERED: LISI-515 PO (07:28)
[2015-12-16] MEDS ORDERED: IBUP800T23 PO (07:28)
[2015-12-16] MEDS ORDERED: METH10TA PO (07:29)
[2015-12-16] MEDS ORDERED: MSIR30 PO (07:34)
[2015-12-16] MEDS ORDERED: PRED5TAB PO (07:35)
[2015-12-16] MEDS: POVIDONE IODINE 10% OINT 30 GM TUBE TOPICAL SCH (09:00)
[2015-12-16 10:49] LABS: AUTOMATED NEUTROPHIL # 12.8 TH/MM3 (1.8-7.7); BASOPHIL # 0.1 TH/MM3 (0-0.2); BASOPHIL % 0.8 % (0.0-2.0); HEMATOCRIT 25.1 % (39.0-51.0); LYMPH % 12.2 % (9.0-44.0); MEAN CELL VOLUME 89.7 FL (80.0-100.0); MEAN CORPUSCULAR HEMOGLOBIN 29.5 PG (27.0-34.0); MEAN CORPUSCULAR HGB CONC 32.9 % (32.0-36.0); MONO % 9.2 % (0.0-8.0); NEUT % 77.8 % (16.0-70.0); PLATELET COUNT 123 TH/MM3 (150-450); RED BLOOD COUNT 2.79 MIL/MM3 (4.50-5.90); RED CELL DISTRIBUTION WIDTH 17.9 % (11.6-17.2); WHITE BLOOD COUNT 16.4 TH/MM3 (4.0-11.0)
[2015-12-16 10:50] LABS: HEMO FLAGS AUTO DIFF
[2015-12-16] MEDS: CHLORHEXIDINE 0.12% (ORAL KIT) 15 ML CUP MT SCH ×2 (11:02→20:00)
[2015-12-16 11:51] LABS: BANDS 18 % (0-6); BASOPHILS 1 % (0-2); CORRECTED NUCLEATED RBC 4 /100 WBC (0-0); METAMYELOCYTES 1 % (0-1); MYELOCYTES 2 % (0-0); NEUTROPHIL # MANUAL DIFF 12.8 TH/MM3 (1.8-7.7); PLATELET ESTIMATE SMEAR LOW (NORMAL); PLATELET MORPHOLOGY NORMAL (NORMAL); POLYS (SEG NEUTROPHILS) 57 % (16-70); SCAN/DIFF FINAL DIFF MANUAL; WBC DIFF SAMPLE 100
--- NOTE | 2015-12-16 12:14 | HHI.CCPN ---
Subjective Remarks/Hospital Course 55-year-old male brought by EMS with altered mental status. He has been confused for 2 days but this morning has been the worst. He has history of chronic opiate medications including methadone and morphine that he takes for pain management and hence they gave him Narcan IV which brought the GCS up to 13. The blood glucose was 74. He has open wounds from his right upper and bilateral lower extremities. He has history of hepatitis C. Last week he was pealing and eating shrimps. Bedside blood sugar was 76 in the ER. He was tachycardic in 1 teens and was intubated in the ED for airway protection. Admitted to ICU with sepsis due to Staph Aureus hand infection and E. Coli bacteriemia. 12/05 Patient remains sedated with Fentanyl and intubated. On Levophed 3 mics, Vasopressin 0.03 mics and Bicarb drip. T:99.8 TF placed on hold OGT to LIWS last night - gastric drainage 525ml overnight. 12/06 Patient is sedated with Fentanyl and intubated, On Levophed 3 mics, off vasopressin. Gastric output 400ml in 24 hrs. KUB abdomen yesterday mildly distended colon otherwise non specific KUB. 12/07 Patient is off sedation remains intubated tolerated CPAP for most day yesterday. Afebrile. on no drips, tolerating tube feeds. 12/08 Patient went to OR yesterday for debridement and irrigation of right forearm and wound VAC placement. Given 2U PRBC and 2u PLT yesterday and currently receiving 1of 2 u additional PRBC. Hgb 7.7, PLT 43 this morning. Patient also started on pressors now on Levophed 10 mics. Vasopressin 0.04 mics. On no sedation. 12/09 Patient remains intubated off pressors, Afebrile. Tolerating tube feeds. Afebrile. 12/10 Patient is sedated with Fentanyl and intubated. Awake and follows commands off sedation. Afebrile. 12/11 Patient had ?SVT overnight given Lopressor 2.5mg IV x1, Remains intubated and sedated with Fentanyl. Afebrile. Tolerating TF. 12/12 Patient spoked fever last night with T: 101.5, sedated with Fentanyl and intubated. 12/13 Patient had an episode of desaturation overnight required increase FIO2/ PEE now on ACV with RR 14, TV 550, PEEP: 12, FIO2 60% with sats 100% CT chest performed overnight showed b/l consolidation and small pleural effusion. Had T: 100.0 last night. 12/14 Tolerating PS 15/CPAP 10 FiO2 40% with rSBI 38, weaning. . Awake and alert , following commands. Hypotensive overnight and levophed restarted up to 12 mcg/ min. Nurse has been weaning throughout the day. Suspected adrenal insufficiency as he was on prednisone as outpatient for gout and has not been on stress dose steroids. Given decadron. Subjective: 12/15 Transfused 1 unit PRBC for Hgb 7.0 yesterday, 1 unit PRBC for Hgb 6.6 today and now Hgb 8.3. Does not clinically have e/o active GI bleeding and wound vac output nonbloody. Stool 1500 output, C diff negative. No abdominal pain. Remains Awake and alert, remained on CPAP 10/5 last night and is now tolerating CPAP 5/5. Objective - Vital Signs Date Time Temp Pulse Resp B/P Pulse Ox O2 Delivery O2 Flow Rate FiO2 12/16/15 11:36 98 40 12/16/15 08:00 98.2 99 16 109/62 Intake and Output 12/15/15 12/15/15 12/16/15 08:00 16:00 00:00 Intake Total 1321 ml 1225 ml 1281 ml Output Total 650 ml 1175 ml 560.0 ml Balance 671 ml 50 ml 721.0 ml Result Diagram: 12/16/15 1020 12/16/15 0400 Other Results Laboratory Tests Test 12/14/15 12/14/15 05:20 05:49 White Blood Count 14.3 TH/MM3 Red Blood Count 2.49 MIL/MM3 Hemoglobin 7.7 GM/DL Hematocrit 23.7 % Mean Corpuscular Volume 94.8 FL Mean Corpuscular Hemoglobin 30.8 PG Mean Corpuscular Hemoglobin 32.5 % Concent Red Cell Distribution Width 18.1 % Platelet Count 158 TH/MM3 Mean Platelet Volume 10.5 FL Neutrophils (%) (Auto) 67.3 % Lymphocytes (%) (Auto) 20.5 % Monocytes (%) (Auto) 9.5 % Eosinophils (%) (Auto) 1.0 % Basophils (%) (Auto) 1.7 % Neutrophils # (Auto) 9.6 TH/MM3 Lymphocytes # (Auto) 2.9 TH/MM3 Monocytes # (Auto) 1.4 TH/MM3 Eosinophils # (Auto) 0.1 TH/MM3 Basophils # (Auto) 0.2 TH/MM3 CBC Comment AUTO DIFF Differential Total Cells 100 Counted Neutrophils % (Manual) 45 % Band Neutrophils % 24 % Lymphocytes % 18 % Monocytes % 10 % Neutrophils # (Manual) 10.3 TH/MM3 Myelocytes 3 % Nucleated Red Blood Cells 8 /100 WBC Differential Comment FINAL DIFF MANUAL Toxic Granulation 2+ Platelet Estimate NORMAL Platelet Morphology Comment NORMAL Polychromasia 3.2 % Sodium Level 150 MEQ/L Potassium Level 3.5 MEQ/L Chloride Level 114 MEQ/L Carbon Dioxide Level 30.6 MEQ/L Anion Gap 5 MEQ/L Blood Urea Nitrogen 63 MG/DL Creatinine 1.41 MG/DL Estimat Glomerular Filtration 53 ML/MIN Rate Random Glucose 147 MG/DL Calcium Level 8.0 MG/DL Blood Gas Puncture Site RT BRACHIAL Blood Gas Patient Temperature 98.6 Blood Gas HCO3 29 mmol/L Blood Gas Base Excess 4.9 mmol/L Blood Gas Oxygen Saturation 42 % Arterial Blood pH 7.46 Arterial Blood Partial 41 mmHg Pressure CO2 Arterial Blood Partial 26 mmHg Pressure O2 Arterial Blood Oxygen Content 4.5 Vol % Arterial Blood 1.5 % Carboxyhemoglobin Arterial Blood Methemoglobin 1.3 % Blood Gas Hemoglobin 7.5 G/DL Oxygen Delivery Device VENTILATOR Blood Gas Ventilator Setting AC450/14/+12 Blood Gas Inspired Oxygen 100 % Imaging Last Impressions Chest X-Ray 12/14/15 0000 Signed Impressions: Service Date/Time: Monday, December 14, 2015 05:02 - CONCLUSION: Worsening left basilar density with bilateral airspace disease. Wojciech Lockhart MD Chest CT 12/14/15 0000 Signed Impressions: Service Date/Time: Monday, December 14, 2015 06:12 - CONCLUSION: 1. Cardiomegaly with bilateral consolidation, likely CHF. Pneumonia cannot be excluded. 2. Small right pleural effusion. Wojciech Lockhart MD Abdomen X-Ray 12/06/15 0000 Signed Impressions: Service Date/Time: November 09:53 - CONCLUSION: Nonspecific KUB. Air is seen within a mildly distended colon but contrast is clearly seen in the rectum. Arnaldo Reyes MD Abdomen/Pelvis CT 12/04/15 0000 Signed Impressions: Service Date/Time: Friday, December 04, 2015 16:24 - CONCLUSION: 1. Mildly distended small bowel in the mid and lower abdomen. Contrast is clearly seen extending into the distal small bowel and ascending colon so a complete obstruction is not seen. A transition point is not seen. This pattern likely represents an ileus versus a partial obstruction. 2. Multiple nonobstructing renal stones. 3. Abnormal appearance of the spleen which appears to represent a splenule. It could be correlated if the patient has had either primary splenic removal or splenic injury and this is what is either left of the spleen or a developing splenule. This is likely of no significance. 4. Mild ascites. 5. Increased density within the gallbladder representing either tumefactive sludge or noncalcified stones. 6. Mild bilateral pleural effusions with prominent areas of lower lobe atelectasis or consolidation at the bases bilaterally. 7. Subacute to chronic bilateral rib fractures and multiple compression fractures in the lower thoracic and lumbar spine as described above. The patient does have a prior CT examination from 08/26/2014. All the compression deformities described above are new when compared to that scan. Arnaldo Reyes MD Head CT 12/02/15 1013 Signed Impressions: Service Date/Time: Wednesday, December 02, 2015 11:00 - CONCLUSION: 1. No intracranial abnormality is seen. 2. Air-fluid level in the right maxillary sinus. Arnaldo Reyes MD Objective Remarks Drips: Fentanyl 150 g/hr Levophed 2 mcg/min GENERAL: Patient is critically ill male who is intubated, awake and following commands. SKIN: Warm and dry. HEAD: Normocephalic. EYES: No scleral icterus. No injection or drainage. NECK: Supple, trachea midline. No JVD or lymphadenopathy. Orally intubated CARDIOVASCULAR:Tachycardic, regular without murmurs, gallops, or rubs. RESPIRATORY: Breath sounds equal bilaterally. No accessory muscle use. Tolerating CPAP 5/5 with RSBI 70s. GASTROINTESTINAL: soft, non-tender, nondistended. MUSCULOSKELETAL: Generalized anasarca. Multiple open wounds in the lower extremity. RUE - with wound vac in place. L upper extremity dressing in place. NEURO: Awake and alert, nods and shakes head to questions. Moves fingers bilaterally to command. 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 -Has been off home dose of methadone (taking for chronic migraines and pain clinic had been weaning off per family). -Methadone has been on hold due to renal function. Starting fentanyl patch 50 mcg/hr but initiating Dilaudid 0.5-2 mg IV q2 hour depending on pain scale and will titrate dose up if needed. -Ultimately could transition to methadone rather than fentanyl patch when renal function and clinical condition stable as he does have outpatient methadone followup. -Checked LFTs have normalized, consider adding scheduled acetaminophen for analgesic synergy with narcotics (clarify with family results of liver biopsy) - 12/01 CT head negative, Ammonia level <10 on 12/08 CV Septic shock resolved -Off vasopressin. Now off levophed. Cortisol level was 14 so did not continue further gluco/mineralcorticoids in the setting of hypernatremia and absence of other findings. Received decadron 12/14 due to concern given prior hx of [facility] outpatient prednisone use. Will monitor clinically and consider addition of hydrocortisone if there is clinical change. (Not previously on stress dose steroids for sepsis) Echo 12/07 EF 65-70%, grade I diastolic dysfunction Respiratory Acute respiratory failure Acute healthcare associated pneumonia NIGEL on home CPAP -Tolerating CPAP. Extubating. Discussed with family that if patient requires reintubation, will likely require trach and procedure d/w them. Patient and family agreeable if needed. - CT chest 12/13 b/l consolidation with small right pleural effusion -Nocturnal Bipap 15/5 and prn. On Bipap and patient appears comfortable 15/5 45% , but will not delay reintubation if increasing O2 requirements or failing to improve. ID - Severe sepsis - Necrotizing Fascitis - MSSA on wound culture 12/07. -Ecoli bacteremia 12/01 -MSSA bacteremia 12/05. Cleared on f/u blood culture 12/07, 12/12. - Debridement 12/01 p.m at bedside by Dr Pedro and Dr. Hartmann -R hand, forearm and olecrenon bursa I and D and Wound vac 12/07 Dr Chavez. Continue abx per ID ( IV Clinda, Azactam, Ancef) Pancultures 12/12 negative. Repeat panculture if fever or clinical change. Noted increasing stool output ?abx associated. C diff negative. Abdomen exam completely benign; otherwise tolerating tube feeds. Renal -DEIRDRE Hypernatremia Cr plateaued around 1.73. Hypernatremic despite free water flushes and now extubating and discontinuing free water flushes for now. Starting on D5W 42/hr to address free water deficit. GI - Has been tolerating TF- Glucerna @ goal rate 60ml/hr per nutrition recs. Speech to evaluate swallow. Place NGT for tube feeds if not able to swallow. Hem Anemia Thrombocytopenia- likely 2nd sepsis ( improving) - monitor CBC, s/p transfusion 1u PLT Phereses on 12/05 - s/p transfusion 2u PRBC, 2u PLT 12/07 -Hep PLT ab negative on 12/03 -Transfuse 1 unit PRBC 12/14 and 1 unit 12/15. Repeat Hgb 8.3 from 6.6 after one unit so may have been issue with collection? Patient does not have e/o GI bleeding and wound vac output nonbloody so will continue to monitor. Anemia of chronic disease with low sat, start ferrous sulfate 325 bid. Endo - Medium dose ISS with accuchecks q6. Detemir 5 subcut qhs. On D5. Tube feeds off. On Pepcid for GI prophylaxis -SCD for DVT prophylaxis- not on chemical AC 2nd thrombocytopenia however now resolving and patient is at risk so plan to resume soon if hgb remains stable. Lines:L IJ CVL placed 12/13 #3. Patient adn daughter updated at bedside and questions answered. Reassessed multiple times post-extubation. CCT 60 minutes exclusive of separately billable procedures Problem Qualifiers (1) Altered mental status: Qualified Code: R41.0 - Delirium (2) Sepsis: Qualified Code: A41.9 - Sepsis, due to unspecified organism (3) Respiratory failure: Qualified Code: J96.00 - Acute respiratory failure, unspecified whether with hypoxia or hypercapnia Isabela Gonzalez MD Dec 16, 2015 12:14
[2015-12-16] MEDS ORDERED: fentaNYL 50 MCG/HR PATCH TD SCH (14:00)
[2015-12-16] MEDS ORDERED: GLUCAGON 1 MG/ML VIAL OTHER PRN ×2 (14:00→22:45)
[2015-12-16] MEDS ORDERED: HYDROmorphone HCL PF 1 MG/ML VIAL IV PUSH PRN (14:00)
[2015-12-16] MEDS ORDERED: DEXTROSE 50% IN WATER 50 ML VIAL(D50) IV PUSH PRN ×2 (14:00→22:45)
[2015-12-16] MEDS: DEXTROSE 5% IN WATE 1000ML INJ 1,000 ML IV SCH (14:38)
[2015-12-16] MEDS: HYDROmorphone HCL PF 1 MG/ML VIAL IV PUSH PRN (15:15)
[2015-12-16] MEDS: INSULIN ASPART SUPPLEMENTAL SCALE SQ SCH ×3 (16:00→20:00)
[2015-12-16] MEDS ORDERED: INSULIN ASPART SUPPLEMENTAL SCALE SQ SCH (16:00)
[2015-12-16 17:20] LABS: INDIRECT BILIRUBIN 0.2 MG/DL (0.0-0.8); TOTAL BILIRUBIN ADULT 0.7 MG/DL (0.2-1.0)
[2015-12-16 18:20] LABS: BACTERIA, URINE RARE /hpf; BLOOD, URINE MOD (NEG); COMMENT (UR) CULTURE INDICATED; CULTURE IF INDICATED CULTURE INDICATED; GLUCOSE,URINE NEG (NEG); GRANULAR CAST, URINE 23 /lpf; KETONE, URINE NEG (NEG); MUCUS URINE FEW /lpf (OCC); NITRITE,URINE NEG (NEG); PH, URINE 5.5 (5.0-8.5); SQUAMOUS EPITHELIAL CELL URINE <1 /hpf (0-5)
[2015-12-16 18:21] LABS: URINE COLOR DARK-BROWN (YELLW/STRAW)
[2015-12-16] MEDS ORDERED: FUROSEMIDE 40 MG/4 ML VIAL IV PUSH ONE (19:15)
[2015-12-16] MEDS: HYDROmorphone HCL PF 2 MG/ML VIAL IV PUSH PRN ×2 (19:43→22:10)
[2015-12-16] MEDS: SODIUM CHLORIDE 0.9% FLUSH 5 ML FLUSH IVF PRN (19:44)
[2015-12-16] MEDS: INSULIN DETEMIR 100 UNITS/ML VIAL SQ SCH (22:19)
[2015-12-16] MEDS ORDERED: ACETAMINOPHEN 650 MG/20.3 ML UDC TUBE PRN (22:30)
[2015-12-16] MEDS ORDERED: ACETAMINOPHEN 650 MG/20.3 ML UDC TUBE SCH (23:00)
[2015-12-17] VITALS (18 sets, daily range): BP systolic 89–119; BP diastolic 51–70; PULSE 97–137; RESP 15–48; TEMP 98–99.9; O2SAT 92–100
[2015-12-17] MEDS: ceFAZolin 2 GM PREMIX 50 ML IV SCH ×4 (00:08→23:23)
[2015-12-17] MEDS: HYDROmorphone HCL PF 2 MG/ML VIAL IV PUSH PRN ×8 (02:00→23:23)
[2015-12-17] MEDS: RESP: ALBUTEROL 2.5 MG/IPRATROPIUM 0.5 MG NEB (SCH) NEB ×4 (02:19→20:40)
[2015-12-17] MEDS: CHLORHEXIDINE GLUCONATE 2 % 1 PACK (2 CLOTHS) TOP SCH (04:00)
[2015-12-17] MEDS: CLINDAMYCIN INJ 900 MG in SODIUM CHLORIDE 0.9% INJ 100 ML IV SCH ×2 (04:31→13:11)
[2015-12-17 04:52] LABS: AUTOMATED NEUTROPHIL # 12.1 TH/MM3 (1.8-7.7); BASOPHIL # 0.1 TH/MM3 (0-0.2); BASOPHIL % 0.6 % (0.0-2.0); EOSINOPHIL % 0.1 % (0.0-4.0); HEMATOCRIT 23.8 % (39.0-51.0); LYMPH % 16.8 % (9.0-44.0); LYMPHOCYTE # 2.8 TH/MM3 (1.0-4.8); MEAN CELL VOLUME 89.8 FL (80.0-100.0); MEAN CORPUSCULAR HEMOGLOBIN 29.9 PG (27.0-34.0); MEAN CORPUSCULAR HGB CONC 33.3 % (32.0-36.0); MONO % 10.5 % (0.0-8.0); PLATELET COUNT 118 TH/MM3 (150-450); RED BLOOD COUNT 2.64 MIL/MM3 (4.50-5.90); WHITE BLOOD COUNT 16.9 TH/MM3 (4.0-11.0)
[2015-12-17 04:58] LABS: HEMO FLAGS AUTO DIFF
[2015-12-17] MEDS: INSULIN ASPART SUPPLEMENTAL SCALE SQ SCH ×4 (05:00→23:00)
[2015-12-17 05:16] LABS: BICARBONATE 27.1 MEQ/L (21.0-32.0); MAGNESIUM 2.1 MG/DL (1.5-2.5); POTASSIUM 3.6 MEQ/L (3.5-5.1)
--- NOTE | 2015-12-17 05:42 | RADRPT ---
EXAM DATE/TIME: 12/17/2015 03:25 [facility] COMPARISON: CHEST SINGLE AP, December 14, 2015, 11:34. INDICATIONS : Shortness of breath, possible pulmonary disease. MEDICAL HISTORY : Cardiovascular disease. Hypertension. SURGICAL HISTORY : None. ENCOUNTER: Subsequent ACUITY: 4 - 6 days PAIN SCORE: 0/10 LOCATION: Bilateral chest FINDINGS: Interval extubation and removal of right subclavian line. Left central line tip remains projected ov er the proximal superior vena cava. There is persistent consolidation in the left mid and lower lung with complete loss of delineation of the left hemidiaphragm and several air bronchograms. Volume lo ss in the right lower lung with indistinctness of the bronchopulmonary markings is similar to prior. CONCLUSION: Persistent left lower lobe consolidation. Osmar Alegria MD on December 17, 2015 at 5:38 Board Certified Radiologist. This report was verified electronically.
[2015-12-17 06:57] LABS: BANDS 18 % (0-6); CORRECTED NUCLEATED RBC 8 /100 WBC (0-0); METAMYELOCYTES 3 % (0-1); MYELOCYTES 1 % (0-0); NEUTROPHIL # MANUAL DIFF 12.8 TH/MM3 (1.8-7.7); PLASMA CELLS 1 % (0-0); PLATELET ESTIMATE SMEAR LOW (NORMAL); PLATELET MORPHOLOGY NORMAL (NORMAL); POLYS (SEG NEUTROPHILS) 54 % (16-70); SCAN/DIFF FINAL DIFF MANUAL; WBC DIFF SAMPLE 100
[2015-12-17] MEDS: CHLORHEXIDINE 0.12% (ORAL KIT) 15 ML CUP MT SCH ×2 (08:00→20:00)
[2015-12-17] MEDS: FERROUS SULFATE 325 MG (65 MG ELEMENTAL IRON) TAB PO SCH ×2 (08:33→21:00)
[2015-12-17] MEDS: POVIDONE IODINE 10% OINT 30 GM TUBE TOPICAL SCH (08:33)
--- NOTE | 2015-12-17 10:29 | HHI.CCPN ---
Subjective Remarks/Hospital Course 55-year-old male brought by EMS with altered mental status. He has been confused for 2 days but this morning has been the worst. He has history of chronic opiate medications including methadone and morphine that he takes for pain management and hence they gave him Narcan IV which brought the GCS up to 13. The blood glucose was 74. He has open wounds from his right upper and bilateral lower extremities. He has history of hepatitis C. Last week he was pealing and eating shrimps. Bedside blood sugar was 76 in the ER. He was tachycardic in 1 teens and was intubated in the ED for airway protection. Admitted to ICU with sepsis due to Staph Aureus hand infection and E. Coli bacteriemia. 12/05 Patient remains sedated with Fentanyl and intubated. On Levophed 3 mics, Vasopressin 0.03 mics and Bicarb drip. T:99.8 TF placed on hold OGT to LIWS last night - gastric drainage 525ml overnight. 12/06 Patient is sedated with Fentanyl and intubated, On Levophed 3 mics, off vasopressin. Gastric output 400ml in 24 hrs. KUB abdomen yesterday mildly distended colon otherwise non specific KUB. 12/07 Patient is off sedation remains intubated tolerated CPAP for most day yesterday. Afebrile. on no drips, tolerating tube feeds. 12/08 Patient went to OR yesterday for debridement and irrigation of right forearm and wound VAC placement. Given 2U PRBC and 2u PLT yesterday and currently receiving 1of 2 u additional PRBC. Hgb 7.7, PLT 43 this morning. Patient also started on pressors now on Levophed 10 mics. Vasopressin 0.04 mics. On no sedation. 12/09 Patient remains intubated off pressors, Afebrile. Tolerating tube feeds. Afebrile. 12/10 Patient is sedated with Fentanyl and intubated. Awake and follows commands off sedation. Afebrile. 12/11 Patient had ?SVT overnight given Lopressor 2.5mg IV x1, Remains intubated and sedated with Fentanyl. Afebrile. Tolerating TF. 12/12 Patient spoked fever last night with T: 101.5, sedated with Fentanyl and intubated. 12/13 Patient had an episode of desaturation overnight required increase FIO2/ PEE now on ACV with RR 14, TV 550, PEEP: 12, FIO2 60% with sats 100% CT chest performed overnight showed b/l consolidation and small pleural effusion. Had T: 100.0 last night. 12/14 Tolerating PS 15/CPAP 10 FiO2 40% with rSBI 38, weaning. . Awake and alert , following commands. Hypotensive overnight and levophed restarted up to 12 mcg/ min. Nurse has been weaning throughout the day. Suspected adrenal insufficiency as he was on prednisone as outpatient for gout and has not been on stress dose steroids. Given decadron. Subjective: 12/15 Transfused 1 unit PRBC for Hgb 7.0 yesterday, 1 unit PRBC for Hgb 6.6 today and now Hgb 8.3. Does not clinically have e/o active GI bleeding and wound vac output nonbloody. Stool 1500 output, C diff negative. No abdominal pain. Remains Awake and alert, remained on CPAP 10/5 last night and is now tolerating CPAP 5/5. 12/17: Extubated yesterday tolerating well. Breathing comfortably. Able to follow commands. UO 1.8 L in 24 hours. Na slightly increased to 153. Objective - Vital Signs Date Time Temp Pulse Resp B/P Pulse Ox O2 Delivery O2 Flow Rate FiO2 12/17/15 09:47 99 Nasal Cannula 4.00 12/17/15 09:35 17 12/17/15 08:00 109 117/69 12/17/15 08:00 98.1 12/17/15 04:27 30 Intake and Output 12/16/15 12/16/15 12/17/15 08:00 16:00 00:00 Intake Total 1465 ml 1140 ml 477 ml Output Total 1560 ml 1375 ml 960 ml Balance -95 ml -235 ml -483 ml Result Diagram: 12/17/15 0325 12/17/15 0325 Other Results Laboratory Tests Test 12/14/15 12/14/15 05:20 05:49 White Blood Count 14.3 TH/MM3 Red Blood Count 2.49 MIL/MM3 Hemoglobin 7.7 GM/DL Hematocrit 23.7 % Mean Corpuscular Volume 94.8 FL Mean Corpuscular Hemoglobin 30.8 PG Mean Corpuscular Hemoglobin 32.5 % Concent Red Cell Distribution Width 18.1 % Platelet Count 158 TH/MM3 Mean Platelet Volume 10.5 FL Neutrophils (%) (Auto) 67.3 % Lymphocytes (%) (Auto) 20.5 % Monocytes (%) (Auto) 9.5 % Eosinophils (%) (Auto) 1.0 % Basophils (%) (Auto) 1.7 % Neutrophils # (Auto) 9.6 TH/MM3 Lymphocytes # (Auto) 2.9 TH/MM3 Monocytes # (Auto) 1.4 TH/MM3 Eosinophils # (Auto) 0.1 TH/MM3 Basophils # (Auto) 0.2 TH/MM3 CBC Comment AUTO DIFF Differential Total Cells 100 Counted Neutrophils % (Manual) 45 % Band Neutrophils % 24 % Lymphocytes % 18 % Monocytes % 10 % Neutrophils # (Manual) 10.3 TH/MM3 Myelocytes 3 % Nucleated Red Blood Cells 8 /100 WBC Differential Comment FINAL DIFF MANUAL Toxic Granulation 2+ Platelet Estimate NORMAL Platelet Morphology Comment NORMAL Polychromasia 3.2 % Sodium Level 150 MEQ/L Potassium Level 3.5 MEQ/L Chloride Level 114 MEQ/L Carbon Dioxide Level 30.6 MEQ/L Anion Gap 5 MEQ/L Blood Urea Nitrogen 63 MG/DL Creatinine 1.41 MG/DL Estimat Glomerular Filtration 53 ML/MIN Rate Random Glucose 147 MG/DL Calcium Level 8.0 MG/DL Blood Gas Puncture Site RT BRACHIAL Blood Gas Patient Temperature 98.6 Blood Gas HCO3 29 mmol/L Blood Gas Base Excess 4.9 mmol/L Blood Gas Oxygen Saturation 42 % Arterial Blood pH 7.46 Arterial Blood Partial 41 mmHg Pressure CO2 Arterial Blood Partial 26 mmHg Pressure O2 Arterial Blood Oxygen Content 4.5 Vol % Arterial Blood 1.5 % Carboxyhemoglobin Arterial Blood Methemoglobin 1.3 % Blood Gas Hemoglobin 7.5 G/DL Oxygen Delivery Device VENTILATOR Blood Gas Ventilator Setting AC450/14/+12 Blood Gas Inspired Oxygen 100 % Imaging Last Impressions Chest X-Ray 12/14/15 0000 Signed Impressions: Service Date/Time: Monday, December 14, 2015 05:02 - CONCLUSION: Worsening left basilar density with bilateral airspace disease. Wojciech Lockhart MD Chest CT 12/14/15 0000 Signed Impressions: Service Date/Time: Monday, December 14, 2015 06:12 - CONCLUSION: 1. Cardiomegaly with bilateral consolidation, likely CHF. Pneumonia cannot be excluded. 2. Small right pleural effusion. Wojciech Lockhart MD Abdomen X-Ray 12/06/15 0000 Signed Impressions: Service Date/Time: November 09:53 - CONCLUSION: Nonspecific KUB. Air is seen within a mildly distended colon but contrast is clearly seen in the rectum. Arnaldo Reyes MD Abdomen/Pelvis CT 12/04/15 0000 Signed Impressions: Service Date/Time: Friday, December 04, 2015 16:24 - CONCLUSION: 1. Mildly distended small bowel in the mid and lower abdomen. Contrast is clearly seen extending into the distal small bowel and ascending colon so a complete obstruction is not seen. A transition point is not seen. This pattern likely represents an ileus versus a partial obstruction. 2. Multiple nonobstructing renal stones. 3. Abnormal appearance of the spleen which appears to represent a splenule. It could be correlated if the patient has had either primary splenic removal or splenic injury and this is what is either left of the spleen or a developing splenule. This is likely of no significance. 4. Mild ascites. 5. Increased density within the gallbladder representing either tumefactive sludge or noncalcified stones. 6. Mild bilateral pleural effusions with prominent areas of lower lobe atelectasis or consolidation at the bases bilaterally. 7. Subacute to chronic bilateral rib fractures and multiple compression fractures in the lower thoracic and lumbar spine as described above. The patient does have a prior CT examination from 08/26/2014. All the compression deformities described above are new when compared to that scan. Arnaldo Reyes MD Head CT 12/02/15 1013 Signed Impressions: Service Date/Time: Wednesday, December 02, 2015 11:00 - CONCLUSION: 1. No intracranial abnormality is seen. 2. Air-fluid level in the right maxillary sinus. Arnaldo Reyes MD Objective Remarks Drips: GENERAL: Patient is awake and following commands. SKIN: Warm and dry. HEAD: Normocephalic. EYES: No scleral icterus. No injection or drainage. NECK: Supple, trachea midline. No JVD or lymphadenopathy. CARDIOVASCULAR:Tachycardic, regular without murmurs, gallops, or rubs. RESPIRATORY: Breath sounds equal bilaterally. No accessory muscle use. GASTROINTESTINAL: soft, non-tender, nondistended. MUSCULOSKELETAL: Generalized anasarca. Multiple open wounds in the lower extremity. RUE - with wound vac in place. L upper extremity dressing in place. NEURO: Awake and alert, nods and shakes head to questions. 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 -Methadone has been on hold due to renal function. -Started on fentanyl patch 50 mcg/hr, Dilaudid 0.5-2 mg IV q2 hour for breakthrough pain -Ultimately could transition to methadone rather than fentanyl patch when renal function and clinical condition stable as he does have outpatient methadone followup. - 12/01 CT head negative, Ammonia level <10 on 12/08 CV Septic shock resolved -Off all pressors. Cortisol level was 14 so did not continue further gluco/ mineralcorticoids in the setting of hypernatremia and absence of other findings. -Received Decadron 12/14 due to concern given prior hx of assisted outpatient prednisone use. -Monitor clinically and consider addition of hydrocortisone if there is clinical change. (Not previously on stress dose steroids for sepsis) -Echo 12/07 EF 65-70%, grade I diastolic dysfunction Respiratory Acute respiratory failure-extubated 12/16/15 Acute healthcare associated pneumonia NIGEL on home CPAP -Tolerating CPAP. Extubating. Discussed with family that if patient requires reintubation, will likely require trach and procedure d/w them. Patient and family agreeable if needed. -CT chest 12/13 b/l consolidation with small right pleural effusion -Nocturnal Bipap /5 and prn. O ID - Severe sepsis - Necrotizing Fascitis - MSSA on wound culture 12/07. - Ecoli bacteremia 12/01 - MSSA bacteremia 12/05. Cleared on f/u blood culture 12/07, 12/12. - Debridement 12/01 p.m at bedside by Dr Pedro and Dr. Hartmnan - R hand, forearm and olecrenon bursa I and D and Wound vac 12/07 Dr Chavez. - Continue abx per ID ( IV Clinda, Azactam, Ancef) Pancultures 12/12 negative. Repeat panculture if fever or clinical change. Noted increasing stool output ?abx associated. C diff negative. Renal -DEIRDRE Hypernatremia Cr plateaued around 1.73, today 1.5. Hypernatremic -on D5W 42/hr to address free water deficit. increase to 75 GI - Speech to evaluate swallow. Place NGT for tube feeds if not able to swallow. Hem Anemia Thrombocytopenia- likely 2nd sepsis ( improving) -monitor CBC, s/p transfusion 1u PLT Phereses on 12/05 -s/p transfusion 2u PRBC, 2u PLT 12/07 -Hep PLT ab negative on 12/03 -Transfuse 1 unit PRBC 12/14 and 1 unit 12/15. -Patient does not have e/o GI bleeding and wound vac output nonbloody so will continue to monitor. -Anemia of chronic disease with low sat, start ferrous sulfate 325 bid. Endo - Medium dose ISS with accuchecks q6. Detemir 5 subcut qhs. On D5. Tube feeds off. On Pepcid for GI prophylaxis -SCD for DVT prophylaxis- not on chemical AC 2nd thrombocytopenia however now resolving and patient is at risk so plan to resume today (Lovenox 30 mg sq qd Lines:L IJ CVL placed 12/13 #4. Patient and daughter updated at bedside and questions answered by Dr. Gonzalez. Level 3 Problem Qualifiers (1) Respiratory failure: Qualified Code: J96.00 - Acute respiratory failure, unspecified whether with hypoxia or hypercapnia (2) Altered mental status: Qualified Code: R41.0 - Delirium (3) Sepsis: Qualified Code: A41.9 - Sepsis, due to unspecified organism Audra Mcintosh MD Dec 17, 2015 10:29
[2015-12-17] MEDS ORDERED: ENOXAPARIN SODIUM 30 MG/0.3 ML SYRINGE SQ SCH (11:00)
[2015-12-17] MEDS: DEXTROSE 5% IN WATE 1000ML INJ 1,000 ML IV SCH (12:05)
[2015-12-17] MEDS ORDERED: METOPROLOL TARTRATE 5 MG/5 ML VIAL ONE (13:04)
[2015-12-17] MEDS ORDERED: METOPROLOL TARTRATE 5 MG/5 ML VIAL IV PUSH ONE (13:15)
--- NOTE | 2015-12-17 17:02 | PD.PLAS.PN ---
Subjective Remarks Patient resting in bed. Vital Signs Date Time Temp Pulse Resp B/P Pulse Ox O2 Delivery O2 Flow Rate FiO2 12/17/15 14:35 20 12/17/15 14:00 129 102/56 12/17/15 14:00 129 12/17/15 12:00 137 12/17/15 12:00 98.0 137 19 113/65 99 12/17/15 12:00 137 113/65 12/17/15 10:00 122 12/17/15 10:00 122 116/65 12/17/15 09:47 99 Nasal Cannula 4.00 12/17/15 08:00 109 117/69 12/17/15 08:00 109 12/17/15 08:00 98.1 109 17 117/69 98 12/17/15 07:00 99 Nasal Cannula 4.00 12/17/15 06:38 98 Nasal Cannula 4.00 12/17/15 06:00 95 Nasal Cannula 4.00 12/17/15 06:00 112 12/17/15 05:00 98 Nasal Cannula 4.00 12/17/15 04:27 100 30 12/17/15 04:00 98.0 97 15 115/69 99 12/17/15 04:00 97 12/17/15 02:00 100 12/17/15 01:00 100 Bi-Pap 30 12/17/15 01:00 100 30 12/17/15 00:00 100 12/17/15 00:00 98.1 100 20 119/70 99 12/16/15 22:18 100 35 12/16/15 22:00 105 12/16/15 20:00 93 Bi-Pap 40 12/16/15 20:00 97.6 111 32 125/75 93 12/16/15 20:00 111 12/16/15 19:09 96 40 12/16/15 18:00 99 I/O 12/16/15 12/16/15 12/16/15 12/17/15 12/17/15 12/17/15 07:00 15:00 23:00 07:00 15:00 23:00 Intake Total 1465 ml 1140 ml 477 ml 490 ml 590 ml Output Total 1560 ml 1375 ml 960 ml 620 ml 815 ml Balance -95 ml -235 ml -483 ml -130 ml -225 ml Intake Oral 0 ml IV Total 412 ml 550 ml 477 ml 490 ml 590 ml Tube Feeding 428 ml 350 ml Packed Cells 125 ml 240 ml Other 500 ml Output Urine Total 600 ml 525 ml 800 ml 500 ml 600 ml Stool Total 860 ml 800 ml 160 ml 120 ml 200 ml Tube Feeding Residual Discard 0 ml Drainage Total 100 ml 50 ml 15 ml Laboratory Tests Test 12/16/15 12/17/15 17:45 03:25 Urine Color DARK-BROWN Urine Turbidity CLOUDY Urine pH 5.5 Urine Specific [place] 1.021 Urine Protein 30 Urine Glucose (UA) NEG Urine Ketones NEG Urine Occult Blood MOD Urine Nitrite NEG Urine Bilirubin SMALL Urine Urobilinogen LESS THAN 2.0 Urine Leukocyte Esterase NEG Urine RBC 4 Urine WBC 32 Urine Squamous Epithelial <1 Cells Urine Bacteria RARE Urine Granular Casts 23 Urine Mucus FEW Microscopic Urinalysis Comment CULTURE INDICATED White Blood Count 16.9 Red Blood Count 2.64 Hemoglobin 7.9 Hematocrit 23.8 Mean Corpuscular Volume 89.8 Mean Corpuscular Hemoglobin 29.9 Mean Corpuscular Hemoglobin 33.3 Concent Red Cell Distribution Width 18.0 Platelet Count 118 Mean Platelet Volume 10.5 Neutrophils (%) (Auto) 72.0 Lymphocytes (%) (Auto) 16.8 Monocytes (%) (Auto) 10.5 Eosinophils (%) (Auto) 0.1 Basophils (%) (Auto) 0.6 Neutrophils # (Auto) 12.1 Lymphocytes # (Auto) 2.8 Monocytes # (Auto) 1.8 Eosinophils # (Auto) 0.0 Basophils # (Auto) 0.1 CBC Comment AUTO DIFF Differential Total Cells 100 Counted Neutrophils % (Manual) 54 Band Neutrophils % 18 Lymphocytes % 8 Monocytes % 15 Neutrophils # (Manual) 12.8 Metamyelocytes 3 Myelocytes 1 Nucleated Red Blood Cells 8 Differential Comment FINAL DIFF MANUAL Atypical Lymphocytes Plasma Cells 1 Platelet Estimate LOW Platelet Morphology Comment NORMAL Sodium Level 153 Potassium Level 3.6 Chloride Level 117 Carbon Dioxide Level 27.1 Anion Gap 9 Blood Urea Nitrogen 86 Creatinine 1.52 Estimat Glomerular Filtration 48 Rate Random Glucose 89 Calcium Level 8.4 Phosphorus Level 5.6 Magnesium Level 2.1 Date/Time Procedure Status Source Growth 12/16/15 22:46 Aerobic Blood Culture - Preliminary Resulted Blood Peripheral NO GROWTH IN 1 DAY 12/16/15 22:46 Anaerobic Blood Culture - Final Resulted Blood Peripheral QNS - SEE AEROBE REPORT 12/16/15 17:45 Urine Culture - Preliminary Resulted Urine Clean Catch NO GROWTH IN 24 HOURS. 12/13/15 06:00 Aerobic Blood Culture Received Blood Peripheral Pending 12/13/15 06:00 Anaerobic Blood Culture Received Blood Peripheral Pending 12/13/15 02:00 Urine Culture - Final Complete Urine Catheterized Urine NO GROWTH IN 48 HOURS. 12/13/15 02:00 Gram Stain - Final Complete Sputum Endotracheal 12/13/15 02:00 Sputum Culture - Final Complete Sputum Endotracheal HEAVY GROWTH NORMAL RESPIRATORY DORI Result Diagram: 12/17/15 0325 12/17/15 0325 Exam Findings Fingers of right hand warm and well perfused. The wound vac is in place. Plan Impression: Patient is receiving wound care. Plan: The patient is informed that we will take him to the OR tomorrow to apply Integra to help his wounds heal. We will also debride leg wounds and check the left arm. He nodded agreement. Barbara Pedro MD Dec 17, 2015 17:02
--- NOTE | 2015-12-17 19:50 | HHI.IDPN ---
Subjective Subjective Remarks delayed entry pt was seen around 9 am today doing well extubated fully awake and alert cont to have intermittent low grade fevers Antibiotics Ancef Clindamycin Lines RIJ and other Line sites with no e/o infection Past Medical History RA HCV sp splenectomy Allergies: Coded Allergies: Compazine (Verified Allergy, Severe, VOMITING, RASH, 08/26/14) SLURRED SPEECH, MIGRAINES Demerol (Verified Allergy, Severe, VOMITING, 08/26/14) Levaquin (Verified Allergy, Severe, 08/26/14) Penicillin (Verified Allergy, Severe, Rash, 08/26/14) Phenergan (Verified Allergy, Severe, VOMITING, 08/26/14) Uncoded Allergies: ANTI-CONVULSIVES (Allergy, Severe, MIGRAINES, SLURRED SPEECH,, 01/23/14) Objective . Vital Signs Date Time Temp Pulse Resp B/P Pulse Ox O2 Delivery O2 Flow Rate FiO2 12/17/15 18:00 127 12/17/15 18:00 127 89/53 12/17/15 17:25 24 12/17/15 16:00 99.9 130 48 103/58 95 12/17/15 16:00 130 12/17/15 16:00 130 103/58 12/17/15 14:00 129 102/56 12/17/15 14:00 129 12/17/15 12:00 137 12/17/15 12:00 98.0 137 19 113/65 99 12/17/15 12:00 137 113/65 12/17/15 10:00 122 12/17/15 10:00 122 116/65 12/17/15 09:47 99 Nasal Cannula 4.00 12/17/15 08:00 109 117/69 12/17/15 08:00 109 12/17/15 08:00 98.1 109 17 117/69 98 12/17/15 07:00 99 Nasal Cannula 4.00 12/17/15 06:38 98 Nasal Cannula 4.00 12/17/15 06:00 95 Nasal Cannula 4.00 12/17/15 06:00 112 12/17/15 05:00 98 Nasal Cannula 4.00 12/17/15 04:27 100 30 12/17/15 04:00 98.0 97 15 115/69 99 12/17/15 04:00 97 12/17/15 02:00 100 12/17/15 01:00 100 Bi-Pap 30 12/17/15 01:00 100 30 12/17/15 00:00 100 12/17/15 00:00 98.1 100 20 119/70 99 12/16/15 22:18 100 35 12/16/15 22:00 105 12/16/15 20:00 93 Bi-Pap 40 12/16/15 20:00 97.6 111 32 125/75 93 12/16/15 20:00 111 12/16/15 12/16/15 12/17/15 14:59 22:59 06:59 Intake Total 1140 ml 477 ml 490 ml Output Total 1375 ml 960 ml 620 ml Balance -235 ml -483 ml -130 ml Intake Oral 0 ml IV Total 550 ml 477 ml 490 ml Tube Feeding 350 ml Packed Cells 240 ml Output Urine Total 525 ml 800 ml 500 ml Stool Total 800 ml 160 ml 120 ml Drainage Total 50 ml . Laboratory Tests Test 12/16/15 12/16/15 12/17/15 04:00 10:20 03:25 White Blood Count 13.9 TH/MM3 16.4 TH/MM3 16.9 TH/MM3 Red Blood Count 2.18 MIL/MM3 2.79 MIL/MM3 2.64 MIL/MM3 Hemoglobin 6.6 GM/DL 8.3 GM/DL 7.9 GM/DL Hematocrit 20.1 % 25.1 % 23.8 % Mean Corpuscular Volume 92.2 FL 89.7 FL 89.8 FL Mean Corpuscular Hemoglobin 30.2 PG 29.5 PG 29.9 PG Mean Corpuscular Hemoglobin 32.8 % 32.9 % 33.3 % Concent Red Cell Distribution Width 17.4 % 17.9 % 18.0 % Platelet Count 111 TH/MM3 123 TH/MM3 118 TH/MM3 Mean Platelet Volume 10.8 FL 11.0 FL 10.5 FL Neutrophils (%) (Auto) 82.3 % 77.8 % 72.0 % Lymphocytes (%) (Auto) 10.9 % 12.2 % 16.8 % Monocytes (%) (Auto) 5.9 % 9.2 % 10.5 % Eosinophils (%) (Auto) 0.0 % 0.0 % 0.1 % Basophils (%) (Auto) 0.9 % 0.8 % 0.6 % Neutrophils # (Auto) 11.4 TH/MM3 12.8 TH/MM3 12.1 TH/MM3 Lymphocytes # (Auto) 1.5 TH/MM3 2.0 TH/MM3 2.8 TH/MM3 Monocytes # (Auto) 0.8 TH/MM3 1.5 TH/MM3 1.8 TH/MM3 Eosinophils # (Auto) 0.0 TH/MM3 0.0 TH/MM3 0.0 TH/MM3 Basophils # (Auto) 0.1 TH/MM3 0.1 TH/MM3 0.1 TH/MM3 CBC Comment AUTO DIFF AUTO DIFF AUTO DIFF Differential Total Cells 100 100 100 Counted Neutrophils % (Manual) 70 % 57 % 54 % Band Neutrophils % 10 % 18 % 18 % Lymphocytes % 6 % 8 % 8 % Monocytes % 8 % 13 % 15 % Basophils % 1 % 1 % Neutrophils # (Manual) 11.8 TH/MM3 12.8 TH/MM3 12.8 TH/MM3 Metamyelocytes 4 % 1 % 3 % Myelocytes 1 % 2 % 1 % Nucleated Red Blood Cells 13 /100 WBC 4 /100 WBC 8 /100 WBC Differential Comment FINAL DIFF FINAL DIFF FINAL DIFF MANUAL MANUAL MANUAL Platelet Estimate LOW LOW LOW Platelet Morphology Comment ENLARGED NORMAL NORMAL Atypical Lymphocytes % Plasma Cells 1 % Laboratory Tests Test 12/16/15 12/17/15 04:00 03:25 Sodium Level 151 MEQ/L 153 MEQ/L Potassium Level 3.9 MEQ/L 3.6 MEQ/L Chloride Level 117 MEQ/L 117 MEQ/L Carbon Dioxide Level 27.0 MEQ/L 27.1 MEQ/L Anion Gap 7 MEQ/L 9 MEQ/L Blood Urea Nitrogen 79 MG/DL 86 MG/DL Creatinine 1.71 MG/DL 1.52 MG/DL Estimat Glomerular Filtration 42 ML/MIN 48 ML/MIN Rate Random Glucose 198 MG/DL 89 MG/DL Calcium Level 8.0 MG/DL 8.4 MG/DL Phosphorus Level 5.3 MG/DL 5.6 MG/DL Magnesium Level 2.1 MG/DL 2.1 MG/DL Total Bilirubin 0.7 MG/DL Direct Bilirubin 0.5 MG/DL Indirect Bilirubin 0.2 MG/DL Aspartate Amino Transf 37 U/L (AST/SGOT) Alanine Aminotransferase 13 U/L (ALT/SGPT) Alkaline Phosphatase 221 U/L Total Protein 5.3 GM/DL Albumin 0.9 GM/DL Microbiology Date/Time Procedure Status Source Growth 12/16/15 17:45 Urine Culture - Preliminary Resulted Urine Clean Catch NO GROWTH IN 24 HOURS. 12/16/15 17:51 Aerobic Blood Culture - Preliminary Resulted Blood Peripheral NO GROWTH IN 1 DAY 12/16/15 17:51 Anaerobic Blood Culture - Preliminary Resulted Blood Peripheral NO GROWTH IN 1 DAY 12/16/15 22:46 Aerobic Blood Culture - Preliminary Resulted Blood Peripheral NO GROWTH IN 1 DAY 12/16/15 22:46 Anaerobic Blood Culture - Final Resulted Blood Peripheral QNS - SEE AEROBE REPORT Imaging Last Impressions Chest X-Ray 12/17/15 0600 Signed Impressions: Service Date/Time: Thursday, December 17, 2015 03:25 - CONCLUSION: Persistent left lower lobe consolidation. Osmar Alegria MD Chest CT 12/14/15 0000 Signed Impressions: Service Date/Time: Monday, December 14, 2015 06:12 - CONCLUSION: 1. Cardiomegaly with bilateral consolidation, likely CHF. Pneumonia cannot be excluded. 2. Small right pleural effusion. Wojciech Lockhart MD Abdomen X-Ray 12/06/15 0000 Signed Impressions: Service Date/Time: November 09:53 - CONCLUSION: Nonspecific KUB. Air is seen within a mildly distended colon but contrast is clearly seen in the rectum. Arnaldo Reyes MD Abdomen/Pelvis CT 12/04/15 0000 Signed Impressions: Service Date/Time: Friday, December 04, 2015 16:24 - CONCLUSION: 1. Mildly distended small bowel in the mid and lower abdomen. Contrast is clearly seen extending into the distal small bowel and ascending colon so a complete obstruction is not seen. A transition point is not seen. This pattern likely represents an ileus versus a partial obstruction. 2. Multiple nonobstructing renal stones. 3. Abnormal appearance of the spleen which appears to represent a splenule. It could be correlated if the patient has had either primary splenic removal or splenic injury and this is what is either left of the spleen or a developing splenule. This is likely of no significance. 4. Mild ascites. 5. Increased density within the gallbladder representing either tumefactive sludge or noncalcified stones. 6. Mild bilateral pleural effusions with prominent areas of lower lobe atelectasis or consolidation at the bases bilaterally. 7. Subacute to chronic bilateral rib fractures and multiple compression fractures in the lower thoracic and lumbar spine as described above. The patient does have a prior CT examination from 08/26/2014. All the compression deformities described above are new when compared to that scan. Arnaldo Reyes MD Head CT 12/02/15 1013 Signed Impressions: Service Date/Time: Wednesday, December 02, 2015 11:00 - CONCLUSION: 1. No intracranial abnormality is seen. 2. Air-fluid level in the right maxillary sinus. Arnaldo Reyes MD Physical Exam GENERAL: NAD SKIN: no jaundice. Multiple wounds noted HEENT: Has scleral edema;no icterus, ET in mouth. NO nasal drainage NECK: Trachea midline. Supple, nontender. CARDIOVASCULAR: systolic murmur in base of heart RESPIRATORY/CHEST: + some rhonchi on auscultation. Breath sounds equal bilaterally. GASTROINTESTINAL: Abdomen moderately distended, soft. No reaction to palpation GENITOURINARY: Sandoval catheter in place with clear, scrotum is very edematous. MUSCULOSKELETAL: Extremities no cyanosis, edema 3+. Persistent wounds seen on LUE and BLE Has wound vac in his RUE with serosang d/c compartments appear soft Hand appears to be well perfused Diffuse soft pitting edema cw anasarca involving all extremeties LUE with edema and stable area of necrotic skin on forearm NEUROLOGICAL: awake alert non focal LINES: NO evidence of infection Assessment & Plan Remarks Septic shock with MODS : shock resolved - source is RUE severe nec fasc 2/2 MSSA MSSA bacteremia - 2/2 severe SSTI of RUE, MSSA - repet blood clx negative - S/P I and D x 3 -improved - skin grafting planned for tomnorrow E.coli bacteremia -source is unclear - suspect GI source - repeat BC is negative Pt is worse hemodynamically - hypotensive, hypoxic Fluid overload B/l pu,lmonary conslidations, nbut sputum looks unremarkable not sugg of PNA Immunosuppressed PCN allergy, but no probs with Keflex -per mom Respiratory failure - resolved ARF/ DEIRDRE/ATN 2/2 sepsis - improving Abx associated diarrhea, C.diff negative Worsening fluid retention Critical hypoalbumenemia PLAN: dc Clinda Continue Ancef Follow repeat blood clx untill final Monitor progress needs improvemnt of his protein nourishement status in order to heal Hand surgery D/W RN Argelia Becerra MD Dec 17, 2015 19:49
[2015-12-17] MEDS: INSULIN DETEMIR 100 UNITS/ML VIAL SQ SCH (20:37)
[2015-12-17] MEDS: SODIUM CHLORIDE 0.9% FLUSH 5 ML FLUSH IVF PRN (20:38)
[2015-12-18] VITALS (17 sets, daily range): BP systolic 88–125; BP diastolic 51–80; PULSE 117–127; RESP 27–46; TEMP 97.7–99.3; O2SAT 92–100
[2015-12-18] MEDS: DEXTROSE 5% IN WATE 1000ML INJ 1,000 ML IV SCH ×2 (01:25→15:20)
[2015-12-18] MEDS: SODIUM CHLORIDE 0.9% FLUSH 5 ML FLUSH IVF PRN (02:09)
[2015-12-18] MEDS: HYDROmorphone HCL PF 2 MG/ML VIAL IV PUSH PRN ×7 (02:09→21:15)
[2015-12-18] MEDS: RESP: ALBUTEROL 2.5 MG/IPRATROPIUM 0.5 MG NEB (SCH) NEB ×4 (03:14→20:31)
[2015-12-18] MEDS: CHLORHEXIDINE GLUCONATE 2 % 1 PACK (2 CLOTHS) TOP SCH (04:00)
[2015-12-18] MEDS: INSULIN ASPART SUPPLEMENTAL SCALE SQ SCH ×4 (05:00→23:00)
[2015-12-18 05:37] LABS: AUTOMATED NEUTROPHIL # 20.7 TH/MM3 (1.8-7.7); BASOPHIL # 0.3 TH/MM3 (0-0.2); EOSINOPHIL # 0.1 TH/MM3 (0-0.4); EOSINOPHIL % 0.4 % (0.0-4.0); LYMPH % 14.7 % (9.0-44.0); LYMPHOCYTE # 4.1 TH/MM3 (1.0-4.8); MEAN CELL VOLUME 91.6 FL (80.0-100.0); MEAN CORPUSCULAR HEMOGLOBIN 29.3 PG (27.0-34.0); MONO % 10.6 % (0.0-8.0); NEUT % 73.3 % (16.0-70.0); PLATELET COUNT 131 TH/MM3 (150-450); RED BLOOD COUNT 1.78 MIL/MM3 (4.50-5.90); RED CELL DISTRIBUTION WIDTH 17.3 % (11.6-17.2); WHITE BLOOD COUNT 28.2 TH/MM3 (4.0-11.0)
[2015-12-18 05:41] LABS: HEMO FLAGS AUTO DIFF
[2015-12-18 05:44] LABS: HEMATOCRIT 16.3 % (39.0-51.0)
[2015-12-18] MEDS: ceFAZolin 2 GM PREMIX 50 ML IV SCH (06:07)
[2015-12-18 06:08] LABS: ALKALINE PHOSPHATASE 214 U/L (45-117); ALT (GPT) LESS THAN 6 U/L (12-78); ANION GAP 9 MEQ/L (5-15); AST (GOT) 56 U/L (15-37); BICARBONATE 25.7 MEQ/L (21.0-32.0); BLOOD UREA NITROGEN 104 MG/DL (7-18); CHLORIDE 118 MEQ/L (98-107); GLOMERULAR FILTRATION RATE 46 ML/MIN (>89); MAGNESIUM 1.9 MG/DL (1.5-2.5); POTASSIUM 3.6 MEQ/L (3.5-5.1); SODIUM (NA) 153 MEQ/L (136-145); TOTAL BILIRUBIN ADULT 0.7 MG/DL (0.2-1.0)
[2015-12-18 07:04] LABS: BANDS 13 % (0-6); CORRECTED NUCLEATED RBC 14 /100 WBC (0-0); MYELOCYTES 3 % (0-0); NEUTROPHIL # MANUAL DIFF 23.7 TH/MM3 (1.8-7.7); POLYS (SEG NEUTROPHILS) 68 % (16-70); WBC DIFF SAMPLE 100
[2015-12-18 07:05] LABS: PLATELET ESTIMATE SMEAR LOW (NORMAL); PLATELET MORPHOLOGY NORMAL (NORMAL); SCAN/DIFF FINAL DIFF MANUAL
[2015-12-18] MEDS: FERROUS SULFATE 325 MG (65 MG ELEMENTAL IRON) TAB PO SCH (07:38)
[2015-12-18] MEDS: CHLORHEXIDINE 0.12% (ORAL KIT) 15 ML CUP MT SCH ×2 (07:38→20:00)
--- NOTE | 2015-12-18 08:44 | HHI.CCPN ---
Subjective Remarks/Hospital Course 55-year-old male brought by EMS with altered mental status. He has been confused for 2 days but this morning has been the worst. He has history of chronic opiate medications including methadone and morphine that he takes for pain management and hence they gave him Narcan IV which brought the GCS up to 13. The blood glucose was 74. He has open wounds from his right upper and bilateral lower extremities. He has history of hepatitis C. Last week he was pealing and eating shrimps. Bedside blood sugar was 76 in the ER. He was tachycardic in 1 teens and was intubated in the ED for airway protection. Admitted to ICU with sepsis due to Staph Aureus hand infection and E. Coli bacteriemia. 12/05 Patient remains sedated with Fentanyl and intubated. On Levophed 3 mics, Vasopressin 0.03 mics and Bicarb drip. T:99.8 TF placed on hold OGT to LIWS last night - gastric drainage 525ml overnight. 12/06 Patient is sedated with Fentanyl and intubated, On Levophed 3 mics, off vasopressin. Gastric output 400ml in 24 hrs. KUB abdomen yesterday mildly distended colon otherwise non specific KUB. 12/07 Patient is off sedation remains intubated tolerated CPAP for most day yesterday. Afebrile. on no drips, tolerating tube feeds. 12/08 Patient went to OR yesterday for debridement and irrigation of right forearm and wound VAC placement. Given 2U PRBC and 2u PLT yesterday and currently receiving 1of 2 u additional PRBC. Hgb 7.7, PLT 43 this morning. Patient also started on pressors now on Levophed 10 mics. Vasopressin 0.04 mics. On no sedation. 12/09 Patient remains intubated off pressors, Afebrile. Tolerating tube feeds. Afebrile. 12/10 Patient is sedated with Fentanyl and intubated. Awake and follows commands off sedation. Afebrile. 12/11 Patient had ?SVT overnight given Lopressor 2.5mg IV x1, Remains intubated and sedated with Fentanyl. Afebrile. Tolerating TF. 12/12 Patient spoked fever last night with T: 101.5, sedated with Fentanyl and intubated. 12/13 Patient had an episode of desaturation overnight required increase FIO2/ PEE now on ACV with RR 14, TV 550, PEEP: 12, FIO2 60% with sats 100% CT chest performed overnight showed b/l consolidation and small pleural effusion. Had T: 100.0 last night. 12/14 Tolerating PS 15/CPAP 10 FiO2 40% with rSBI 38, weaning. . Awake and alert , following commands. Hypotensive overnight and levophed restarted up to 12 mcg/ min. Nurse has been weaning throughout the day. Suspected adrenal insufficiency as he was on prednisone as outpatient for gout and has not been on stress dose steroids. Given decadron. 12/15 Transfused 1 unit PRBC for Hgb 7.0 yesterday, 1 unit PRBC for Hgb 6.6 today and now Hgb 8.3. Does not clinically have e/o active GI bleeding and wound vac output nonbloody. Stool 1500 output, C diff negative. No abdominal pain. Remains Awake and alert, remained on CPAP 10/5 last night and is now tolerating CPAP 5/5. 12/17: Extubated yesterday tolerating well. Breathing comfortably. Able to follow commands. UO 1.8 L in 24 hours. Na slightly increased to 153. Subjective: 12/18: Significantly worse this AM. WBC up to 28 from 16. Hgb 5.2 from 7.9. tachycardic. pale this AM. states he feels tired. Continues on BiPAP. Plan for debridement of his arms today. LIJ CVL does not have any signs of overt infection. Objective - Vital Signs Date Time Temp Pulse Resp B/P Pulse Ox O2 Delivery O2 Flow Rate FiO2 12/18/15 06:00 123 12/18/15 06:00 104/57 12/18/15 04:00 99.2 42 96 12/18/15 03:56 30 12/17/15 21:00 Bi-Pap 12/17/15 19:00 4.00 Intake and Output 12/17/15 12/17/15 12/18/15 08:00 16:00 00:00 Intake Total 490 ml 590 ml 488 ml Output Total 620 ml 815 ml 350 ml Balance -130 ml -225 ml 138 ml Result Diagram: 12/18/15 0510 12/18/15 0510 Other Results Laboratory Tests Test 12/14/15 12/14/15 05:20 05:49 White Blood Count 14.3 TH/MM3 Red Blood Count 2.49 MIL/MM3 Hemoglobin 7.7 GM/DL Hematocrit 23.7 % Mean Corpuscular Volume 94.8 FL Mean Corpuscular Hemoglobin 30.8 PG Mean Corpuscular Hemoglobin 32.5 % Concent Red Cell Distribution Width 18.1 % Platelet Count 158 TH/MM3 Mean Platelet Volume 10.5 FL Neutrophils (%) (Auto) 67.3 % Lymphocytes (%) (Auto) 20.5 % Monocytes (%) (Auto) 9.5 % Eosinophils (%) (Auto) 1.0 % Basophils (%) (Auto) 1.7 % Neutrophils # (Auto) 9.6 TH/MM3 Lymphocytes # (Auto) 2.9 TH/MM3 Monocytes # (Auto) 1.4 TH/MM3 Eosinophils # (Auto) 0.1 TH/MM3 Basophils # (Auto) 0.2 TH/MM3 CBC Comment AUTO DIFF Differential Total Cells 100 Counted Neutrophils % (Manual) 45 % Band Neutrophils % 24 % Lymphocytes % 18 % Monocytes % 10 % Neutrophils # (Manual) 10.3 TH/MM3 Myelocytes 3 % Nucleated Red Blood Cells 8 /100 WBC Differential Comment FINAL DIFF MANUAL Toxic Granulation 2+ Platelet Estimate NORMAL Platelet Morphology Comment NORMAL Polychromasia 3.2 % Sodium Level 150 MEQ/L Potassium Level 3.5 MEQ/L Chloride Level 114 MEQ/L Carbon Dioxide Level 30.6 MEQ/L Anion Gap 5 MEQ/L Blood Urea Nitrogen 63 MG/DL Creatinine 1.41 MG/DL Estimat Glomerular Filtration 53 ML/MIN Rate Random Glucose 147 MG/DL Calcium Level 8.0 MG/DL Blood Gas Puncture Site RT BRACHIAL Blood Gas Patient Temperature 98.6 Blood Gas HCO3 29 mmol/L Blood Gas Base Excess 4.9 mmol/L Blood Gas Oxygen Saturation 42 % Arterial Blood pH 7.46 Arterial Blood Partial 41 mmHg Pressure CO2 Arterial Blood Partial 26 mmHg Pressure O2 Arterial Blood Oxygen Content 4.5 Vol % Arterial Blood 1.5 % Carboxyhemoglobin Arterial Blood Methemoglobin 1.3 % Blood Gas Hemoglobin 7.5 G/DL Oxygen Delivery Device VENTILATOR Blood Gas Ventilator Setting AC450/14/+12 Blood Gas Inspired Oxygen 100 % Imaging Last Impressions Chest X-Ray 12/17/15 0600 Signed Impressions: Service Date/Time: Thursday, December 17, 2015 03:25 - CONCLUSION: Persistent left lower lobe consolidation. Osmar Alegria MD Chest CT 12/14/15 0000 Signed Impressions: Service Date/Time: Monday, December 14, 2015 06:12 - CONCLUSION: 1. Cardiomegaly with bilateral consolidation, likely CHF. Pneumonia cannot be excluded. 2. Small right pleural effusion. Wojciech Lockhart MD Abdomen X-Ray 12/06/15 0000 Signed Impressions: Service Date/Time: November 09:53 - CONCLUSION: Nonspecific KUB. Air is seen within a mildly distended colon but contrast is clearly seen in the rectum. Arnaldo Reyes MD Abdomen/Pelvis CT 12/04/15 0000 Signed Impressions: Service Date/Time: Friday, December 04, 2015 16:24 - CONCLUSION: 1. Mildly distended small bowel in the mid and lower abdomen. Contrast is clearly seen extending into the distal small bowel and ascending colon so a complete obstruction is not seen. A transition point is not seen. This pattern likely represents an ileus versus a partial obstruction. 2. Multiple nonobstructing renal stones. 3. Abnormal appearance of the spleen which appears to represent a splenule. It could be correlated if the patient has had either primary splenic removal or splenic injury and this is what is either left of the spleen or a developing splenule. This is likely of no significance. 4. Mild ascites. 5. Increased density within the gallbladder representing either tumefactive sludge or noncalcified stones. 6. Mild bilateral pleural effusions with prominent areas of lower lobe atelectasis or consolidation at the bases bilaterally. 7. Subacute to chronic bilateral rib fractures and multiple compression fractures in the lower thoracic and lumbar spine as described above. The patient does have a prior CT examination from 08/26/2014. All the compression deformities described above are new when compared to that scan. Arnaldo Reyes MD Head CT 12/02/15 1013 Signed Impressions: Service Date/Time: Wednesday, December 02, 2015 11:00 - CONCLUSION: 1. No intracranial abnormality is seen. 2. Air-fluid level in the right maxillary sinus. Arnaldo Reyes MD Objective Remarks GENERAL: Patient is awake and following commands. HEENT: pupils equally round and reactive. mucous membranes are dry and pale. NECK: trachea midline. No JVD. RESPIRATORY: Breath sounds equal bilaterally. No accessory muscle use. BiPAP in place. CARDIOVASCULAR:Tachycardic, regular without murmurs GASTROINTESTINAL: soft, non-tender, nondistended. no guarding. Rectal tube in place with melanic appearing stool. MUSCULOSKELETAL: Generalized anasarca. Multiple open wounds in the lower extremity. RUE - with wound vac in place. L upper extremity dressing in place. NEURO: Awake and alert, nods and shakes head to questions. Moves all 4 extremities to command A/P Assessment and Plan Assessment: This is a 52-year-old male initially admitted with septic shock secondary to necrotizing soft tissue infection of the right upper extremity, now with persistent sepsis, persistent multiple wound infections, resolving respiratory failure. I am very concerned about him today. I'm concerned that he has either worsening of his soft tissue infection or new infection somewhere. We'll pursue pancultures and we will swap out his left IJ central line for a new central line even though this is only 4 days old site appears clean. His other multiorgan system failure persists with severe hypernatremia, acute kidney injury which is slowly resolving persists, his slightly altered mental status though better still persists. His persistent anemia which continues to be problem, I do think at this point may be a lower GI bleed given his new malonic stools today. He remains very critically ill at this time, and I 'm concerned that he is getting worse today as compared to prior days where he was slightly better. Neuro: Acute encephalopathy secondary to sepsis (improved) Acute pain secondary to multiple soft tissue infections Chronic pain -- start tylenol 1gm IV q8h scheduled for pain -- holding oxycodone since he failed his swallow study -- fentanyl patch 50mcg/hr. Will increase this to 75mcg/hr patch on 12/18 when patch is to be replaced. -- remains off home methadone given renal function -- dilaudid 0.5-2mg iv q4h prn for breakthrough pain. Respiratory Acute respiratory failure-extubated 12/16/15 Acute healthcare associated pneumonia NIGEL on home CPAP --Extubated 12/15 --continues on BiPAP 15/ 30%. --CT chest 12/13 b/l consolidation with small right pleural effusion CV Septic shock resolved Sinus Tachycardia --Off all pressors. --Cortisol level was 14 on 12/14 --Echo 12/07 EF 65-70%, grade I diastolic dysfunction --new sinus tachycardia likely 2/2 anemia and possibly new sepsis/infection. Renal: -DEIRDRE Hypernatremia --Cr plateaued around 1.73, today 1.5. --Hypernatremic -on D5W 75/hr, Na stable. continue today. --continue Sandoval catheter. FEN/GI Acute protein calorie malnutrition- severe Hypokalemia Possible GI bleed -- per Speech: failed swallow study. NPO. -- when comes back from OR will place DHT and start TF. -- Nutrition consult for TF recs. -- ICU electrolyte protocol -- Daily BMP -- IV PPI BID Heme: Acute Anemia- likely multifactorial 2/2 iron deficiency and ?acute blood loss Thrombocytopenia- likely 2nd sepsis ( improving) --monitor CBC --Hep PLT ab negative on 12/03 -- 2 units prbc today for hgb 5. recheck CBC after. -- new melena today, concern for GI Bleed. -Anemia of chronic disease with low sat, ferrous sulfate 325 bid (currently on hold given no enteral access and failed swallow study. will restart when we have enteral access) ID - Severe sepsis - Necrotizing Fascitis - MSSA on wound culture 12/07. - Ecoli bacteremia 12/01 - MSSA bacteremia 12/05. Cleared on f/u blood culture 12/07, 12/12. Leukocytosis -- Debridement 12/01 p.m at bedside by Dr Pedro and Dr. Hartmann -- R hand, forearm and olecrenon bursa I and D and Wound vac 12/07 Dr Chavez. -- Abx de-escalated to Ancef yesterday per ID. -- new leukocytosis is concerning. Will horn culture the patient. We will re- broaden abx. I will talk with ID about which abx they would prefer. He may be a good candidate for Vanc/Meropenem. -- Pancultures 12/12 negative. -- Pancultures 12/17 pending. Endocrine: Hyperglycemia of Critical Illness Diabetes -- Medium dose SSI with accuchecks q6 -- Detemir 5 subcut qhs. -- On D5. Tube feeds off. -- glucose well-controlled over last 24h. Prophylaxis: GI Prophylaxis: -- d/c pepcid. -- start Protonix 40mg IV BID in the setting of probable GI Bleed. DVT Prophylaxis: -- SCDs -- d/c Lovenox in the setting of possible GI bleed. will re-evaluate tomorrow. Lines: --L IJ CVL placed 12/13 #5. We will plan to remove this and place new CVL today in the setting of leukocytosis. -- Lori Dispo: -- remain in the [facility]. I am concerned that he is clinically declining today given the anemia and leukocytosis. His MODS remains and he continues to be critically ill, today moreso than yesterday. This patient remains critically ill with one or more organ systems which are or may become a threat to life. I have spent in excess of 52 minutes discontinuously in the care and management of this patient. This time is exclusive of procedures, and includes, but is not limited to, evaluation of the patient, review of the medical record, discussions with family, consultants, nursing staff, or respiratory therapy, and documentation in the medical record. Jeyson Fernández MD Dec 18, 2015 08:44
[2015-12-18] MEDS ORDERED: Vancomycin Consult Pharmacy 1 EA OTHER SCH (08:45)
[2015-12-18] MEDS ORDERED: VANCOMYCIN INJ 1,250 MG in SODIUM CHLOR 0.9% 250 ML INJ 250 ML IV ONE (08:45)
[2015-12-18] MEDS: POVIDONE IODINE 10% OINT 30 GM TUBE TOPICAL SCH (08:52)
[2015-12-18] MEDS: PANTOPRAZOLE SODIUM 40 MG VIAL IV PUSH SCH ×2 (09:29→21:13)
[2015-12-18] MEDS: ACETAMINOPHEN 1000 MG/100 ML VIAL IV SCH ×2 (09:30→17:03)
--- NOTE | 2015-12-18 10:33 | PD.PLAS.PN ---
Subjective Remarks Patient is lying comfortably. Labs this morning indicate elevated WBC and reduced HCT. Objective Vital Signs Date Time Temp Pulse Resp B/P Pulse Ox O2 Delivery O2 Flow Rate FiO2 12/18/15 10:27 30 12/18/15 09:22 38 12/18/15 06:00 123 12/18/15 06:00 122 104/57 12/18/15 04:00 125 12/18/15 04:00 99.2 125 42 108/65 96 12/18/15 04:00 122 108/65 12/18/15 03:56 100 30 12/18/15 02:00 122 12/18/15 02:00 122 107/80 12/18/15 00:47 100 30 12/18/15 00:00 98.8 124 35 91/61 92 12/18/15 00:00 124 91/61 12/18/15 00:00 124 12/17/15 22:53 98 30 12/17/15 22:00 124 12/17/15 22:00 122 113/51 12/17/15 21:00 100 Bi-Pap 30 12/17/15 20:46 92 30 12/17/15 20:00 99.0 132 16 95/52 92 12/17/15 20:00 132 12/17/15 20:00 132 95/52 12/17/15 19:00 92 Nasal Cannula 4.00 12/17/15 18:00 127 12/17/15 18:00 127 89/53 12/17/15 16:00 99.9 130 48 103/58 95 12/17/15 16:00 130 12/17/15 16:00 130 103/58 12/17/15 14:00 129 102/56 12/17/15 14:00 129 12/17/15 12:00 137 12/17/15 12:00 98.0 137 19 113/65 99 12/17/15 12:00 137 113/65 I/O 12/17/15 12/17/15 12/17/15 12/18/15 12/18/15 12/18/15 07:00 15:00 23:00 07:00 15:00 23:00 Intake Total 490 ml 590 ml 488 ml 669 ml Output Total 620 ml 815 ml 350 ml 650 ml Balance -130 ml -225 ml 138 ml 19 ml IV Total 490 ml 590 ml 488 ml 669 ml Output Urine Total 500 ml 600 ml 200 ml 550 ml Stool Total 120 ml 200 ml 150 ml 100 ml Drainage Total 15 ml Laboratory Tests Test 12/18/15 12/18/15 05:10 07:30 White Blood Count 28.2 Red Blood Count 1.78 Hemoglobin 5.2 Hematocrit 16.3 Mean Corpuscular Volume 91.6 Mean Corpuscular Hemoglobin 29.3 Mean Corpuscular Hemoglobin 32.0 Concent Red Cell Distribution Width 17.3 Platelet Count 131 Mean Platelet Volume 11.0 Neutrophils (%) (Auto) 73.3 Lymphocytes (%) (Auto) 14.7 Monocytes (%) (Auto) 10.6 Eosinophils (%) (Auto) 0.4 Basophils (%) (Auto) 1.0 Neutrophils # (Auto) 20.7 Lymphocytes # (Auto) 4.1 Monocytes # (Auto) 3.0 Eosinophils # (Auto) 0.1 Basophils # (Auto) 0.3 CBC Comment AUTO DIFF Differential Total Cells 100 Counted Neutrophils % (Manual) 68 Band Neutrophils % 13 Lymphocytes % 2 Monocytes % 14 Neutrophils # (Manual) 23.7 Myelocytes 3 Nucleated Red Blood Cells 14 Differential Comment FINAL DIFF MANUAL Platelet Estimate LOW Platelet Morphology Comment NORMAL Polychromasia 2.0 Sodium Level 153 Potassium Level 3.6 Chloride Level 118 Carbon Dioxide Level 25.7 Anion Gap 9 Blood Urea Nitrogen 104 Creatinine 1.58 Estimat Glomerular Filtration 46 Rate Random Glucose 121 Calcium Level 7.8 Magnesium Level 1.9 Total Bilirubin 0.7 Aspartate Amino Transf 56 (AST/SGOT) Alanine Aminotransferase LESS THAN 6 (ALT/SGPT) Alkaline Phosphatase 214 Total Protein 4.9 Albumin 1.0 Blood Type B POSITIVE Antibody Screen NEGATIVE Crossmatch Leukocyte-Reduced Red Blood Cells Blood Bank Comment Date/Time Procedure Status Source Growth 12/16/15 22:46 Aerobic Blood Culture - Preliminary Resulted Blood Peripheral NO GROWTH IN 1 DAY 12/16/15 22:46 Anaerobic Blood Culture - Final Resulted Blood Peripheral QNS - SEE AEROBE REPORT 12/16/15 17:45 Urine Culture - Final Complete Urine Clean Catch NO GROWTH IN 48 HOURS. Result Diagram: 12/18/15 0510 12/18/15 0510 Exam Findings Wound vac is in place to right upper extremity. Wound vac is removed for exam. Wound is clean and beginning to heal. There is no significant odor. There is no cellulitis, fluctuance, or purulent drainage. Left arm wound with dry eschar , no cellulitis, fluctuance, or drainage. Patient has multiple excoriations over the extremities and back. No evidence of infection. Assessment and Plan Diagnosis: (1) Open wound of right upper extremity with complication Assessment and Plan Wound vac to be reapplied by wound care nurse. Excoriations of the back and extremities to be dressed with povidone iodine ointment and nonstick dressing. RN and ID physician present for evaluation. After discussion with Dr. Pedro, the decision is made to postpone surgery for debridement and application of integra until the patient stabilizes. Nelly Park Dec 18, 2015 10:33
--- NOTE | 2015-12-18 10:54 | PD.CONS ---
HPI History of Present Illness This is a 55 year old male patient who was brought to the ER for altered mental status and RUE infection. According to the EMR, he has a hx of chronic opiate use with methadone and morphine. He was given Narcan in the ER and his GCS came up to 13. He was admitted to the unit for acute respiratory failure, severe sepsis/septic shock, and acute kidney injury. ID is following for severe necrotizing fascitis secondary to MSSA with MSSA bacteremia. He also has E. Coli bacteremia and although the source is unknown, GI etiology is suspected. He is being treated with Ancef by ID recommendations. The patient had a wound vac and plastics is following. The plan is for debridement with application of integra once his condition stabilizes. During this hospitalization, he has had persistent anemia/thrombocytopenia requiring blood transfusions. He has also had intermittent melena GI has been consulted for further evaluation of his anemia, melanotic stool. The patient last had a colonoscopy by Dr. Knott (02/13/14)----> 5mm x 1 pedunculated polyp in proximal ascending colon, 4 mm x 4 sessile polyp in sigmoid colon. I do not have the pathology for this, but the reports that he was told that he was good for 10 years. The patient has a hx of chronic hepatitis C. He was treated for about a year with Interferon and Ribavirin about 6-7 years ago. His reports that he was undetectable during treatment, but did not have a sustained virological response. He has never been told that he has liver cirrhosis. He did have a liver biopsy (04/14/08)----> chronic hepatitis C with mild periportal inflammation grade 2 and mild fibrous portal expansion stage 1. He does not drink ETOH. The patient and his reports that up until a few days prior to this hospitalization, his appetite was good and he was eating well. His reports that he does have significant reflux and takes antacids on a daily basis. He does not have a hx of PUD. He is not having any significant abdominal pain. He has a flexiseal and he has dark brown in his tube and bag, but is leaking black tarry stool from around the flexiseal. ( Lisa Monroy) PFSH Past Medical History Chronic hepatitis C Gout HTN CKD RA Sleep apnea GERD Colon polyps Past Surgical History Back surgery Colonoscopy Hip surgery Left knee surgery Splenectomy Tonsillectomy (Lisa Monroy) Coded Allergies: Compazine (Verified Allergy, Severe, VOMITING, RASH, 08/26/14) SLURRED SPEECH, MIGRAINES Demerol (Verified Allergy, Severe, VOMITING, 08/26/14) Levaquin (Verified Allergy, Severe, 08/26/14) Penicillin (Verified Allergy, Severe, Rash, 08/26/14) Phenergan (Verified Allergy, Severe, VOMITING, 08/26/14) Uncoded Allergies: ANTI-CONVULSIVES (Allergy, Severe, MIGRAINES, SLURRED SPEECH,, 01/23/14) Medications Allergies Coded Allergies Type Severity Reaction Last Updated Verified Compazine Allergy Severe VOMITING, RASH 08/26/14 Yes Demerol Allergy Severe VOMITING 08/26/14 Yes Levaquin Allergy Severe 08/26/14 Yes Penicillin Allergy Severe Rash 08/26/14 Yes Phenergan Allergy Severe VOMITING 08/26/14 Yes Uncoded Allergies Type Severity Reaction Last Updated Verified ANTI-CONVULSIVES Allergy Severe MIGRAINES, SLURRED SPEECH, 01/23/14 Active Scripts Medications Dose Route/Sig Days Date Category Prednisone 5 Mg Tab 5 Mg PO DAILY 12/16/15 Reported Morphine IR (Morphine Sulfate) 30 Mg Tab 30 Mg PO TID PRN 12/16/15 Reported Methadone (Methadone HCl) 10 Mg Tab 10 Mg PO BID 12/16/15 Reported Lisinopril 20 Mg Tab 20 Mg PO BID 12/16/15 Reported Ibuprofen 800 Mg Tab 800 Mg PO BID 12/16/15 Reported Hydrochlorothiazide 25 Mg Tab 25 Mg PO DAILY 12/16/15 Reported Allopurinol 300 Mg Tab 600 Mg PO DAILY 12/16/15 Reported [Potassium Citrate] 99 Mg PO DAILY 12/02/15 Reported Family History Father from unknown cancer Social History Quit smoking in 2000. 1-2 ETOH a week (Lisa Monroy) Review of Systems Constitutional: DENIES: Weight loss Gastrointestinal: COMPLAINS OF: Bloody stools, Diarrhea, Heartburn, DENIES: Abdominal pain, Black stools, Constipation, Nausea, Vomiting, Swelling of Abdomen, Hematemesis Hematologic/lymphatic: COMPLAINS OF: Bruising Neurologic: DENIES: Headache Psychiatric: COMPLAINS OF: Confusion ROS skin wounds (Lisa Monroy) GI Exam Vitals I&O Vital Signs Date Time Temp Pulse Resp B/P Pulse Ox O2 Delivery O2 Flow Rate FiO2 12/18/15 10:27 30 12/18/15 09:22 38 12/18/15 07:00 100 Bi-Pap 30 12/18/15 06:00 123 12/18/15 06:00 122 104/57 12/18/15 04:00 125 12/18/15 04:00 99.2 125 42 108/65 96 12/18/15 04:00 122 108/65 12/18/15 03:56 100 30 12/18/15 02:00 122 12/18/15 02:00 122 107/80 12/18/15 00:47 100 30 12/18/15 00:00 98.8 124 35 91/61 92 12/18/15 00:00 124 91/61 12/18/15 00:00 124 12/17/15 22:53 98 30 12/17/15 22:00 124 12/17/15 22:00 122 113/51 12/17/15 21:00 100 Bi-Pap 30 12/17/15 20:46 92 30 12/17/15 20:00 99.0 132 16 95/52 92 12/17/15 20:00 132 12/17/15 20:00 132 95/52 12/17/15 19:00 92 Nasal Cannula 4.00 12/17/15 18:00 127 12/17/15 18:00 127 89/53 12/17/15 16:00 99.9 130 48 103/58 95 12/17/15 16:00 130 12/17/15 16:00 130 103/58 12/17/15 14:00 129 102/56 12/17/15 14:00 129 12/17/15 12:00 137 12/17/15 12:00 98.0 137 19 113/65 99 12/17/15 12:00 137 113/65 I/O 12/17/15 12/17/15 12/17/15 12/18/15 12/18/15 12/18/15 07:00 15:00 23:00 07:00 15:00 23:00 Intake Total 490 ml 590 ml 488 ml 669 ml Output Total 620 ml 815 ml 350 ml 650 ml Balance -130 ml -225 ml 138 ml 19 ml IV Total 490 ml 590 ml 488 ml 669 ml Output Urine Total 500 ml 600 ml 200 ml 550 ml Stool Total 120 ml 200 ml 150 ml 100 ml Drainage Total 15 ml Imaging Last Impressions Chest X-Ray 12/17/15 0600 Signed Impressions: Service Date/Time: Thursday, December 17, 2015 03:25 - CONCLUSION: Persistent left lower lobe consolidation. Osmar Alegria MD Chest CT 12/14/15 0000 Signed Impressions: Service Date/Time: Monday, December 14, 2015 06:12 - CONCLUSION: 1. Cardiomegaly with bilateral consolidation, likely CHF. Pneumonia cannot be excluded. 2. Small right pleural effusion. Wojciech Lockhart MD Abdomen X-Ray 12/06/15 0000 Signed Impressions: Service Date/Time: November 09:53 - CONCLUSION: Nonspecific KUB. Air is seen within a mildly distended colon but contrast is clearly seen in the rectum. Arnaldo Reyes MD Abdomen/Pelvis CT 12/04/15 0000 Signed Impressions: Service Date/Time: Friday, December 04, 2015 16:24 - CONCLUSION: 1. Mildly distended small bowel in the mid and lower abdomen. Contrast is clearly seen extending into the distal small bowel and ascending colon so a complete obstruction is not seen. A transition point is not seen. This pattern likely represents an ileus versus a partial obstruction. 2. Multiple nonobstructing renal stones. 3. Abnormal appearance of the spleen which appears to represent a splenule. It could be correlated if the patient has had either primary splenic removal or splenic injury and this is what is either left of the spleen or a developing splenule. This is likely of no significance. 4. Mild ascites. 5. Increased density within the gallbladder representing either tumefactive sludge or noncalcified stones. 6. Mild bilateral pleural effusions with prominent areas of lower lobe atelectasis or consolidation at the bases bilaterally. 7. Subacute to chronic bilateral rib fractures and multiple compression fractures in the lower thoracic and lumbar spine as described above. The patient does have a prior CT examination from 08/26/2014. All the compression deformities described above are new when compared to that scan. Arnaldo Reyes MD Head CT 12/02/15 1013 Signed Impressions: Service Date/Time: Wednesday, December 02, 2015 11:00 - CONCLUSION: 1. No intracranial abnormality is seen. 2. Air-fluid level in the right maxillary sinus. Arnaldo Reyes MD Laboratory Test 12/18/15 12/18/15 05:10 07:30 White Blood Count 28.2 TH/MM3 Red Blood Count 1.78 MIL/MM3 Hemoglobin 5.2 GM/DL Hematocrit 16.3 % Mean Corpuscular Volume 91.6 FL Mean Corpuscular Hemoglobin 29.3 PG Mean Corpuscular Hemoglobin 32.0 % Concent Red Cell Distribution Width 17.3 % Platelet Count 131 TH/MM3 Mean Platelet Volume 11.0 FL Neutrophils (%) (Auto) 73.3 % Lymphocytes (%) (Auto) 14.7 % Monocytes (%) (Auto) 10.6 % Eosinophils (%) (Auto) 0.4 % Basophils (%) (Auto) 1.0 % Neutrophils # (Auto) 20.7 TH/MM3 Lymphocytes # (Auto) 4.1 TH/MM3 Monocytes # (Auto) 3.0 TH/MM3 Eosinophils # (Auto) 0.1 TH/MM3 Basophils # (Auto) 0.3 TH/MM3 CBC Comment AUTO DIFF Differential Total Cells 100 Counted Neutrophils % (Manual) 68 % Band Neutrophils % 13 % Lymphocytes % 2 % Monocytes % 14 % Neutrophils # (Manual) 23.7 TH/MM3 Myelocytes 3 % Nucleated Red Blood Cells 14 /100 WBC Differential Comment FINAL DIFF MANUAL Platelet Estimate LOW Platelet Morphology Comment NORMAL Polychromasia 2.0 % Sodium Level 153 MEQ/L Potassium Level 3.6 MEQ/L Chloride Level 118 MEQ/L Carbon Dioxide Level 25.7 MEQ/L Anion Gap 9 MEQ/L Blood Urea Nitrogen 104 MG/DL Creatinine 1.58 MG/DL Estimat Glomerular Filtration 46 ML/MIN Rate Random Glucose 121 MG/DL Calcium Level 7.8 MG/DL Magnesium Level 1.9 MG/DL Total Bilirubin 0.7 MG/DL Aspartate Amino Transf 56 U/L (AST/SGOT) Alanine Aminotransferase LESS THAN 6 U/L (ALT/SGPT) Alkaline Phosphatase 214 U/L Total Protein 4.9 GM/DL Albumin 1.0 GM/DL Blood Type B POSITIVE Antibody Screen NEGATIVE Crossmatch Leukocyte-Reduced Red Blood Cells Blood Bank Comment Date/Time Procedure Status Source Growth 12/16/15 22:46 Aerobic Blood Culture - Preliminary Resulted Blood Peripheral NO GROWTH IN 1 DAY 12/16/15 22:46 Anaerobic Blood Culture - Final Resulted Blood Peripheral QNS - SEE AEROBE REPORT 12/16/15 17:45 Urine Culture - Final Complete Urine Clean Catch NO GROWTH IN 48 HOURS. Physical Examination HEENT: Normocephalic; atraumatic; no jaundice. CHEST: Resp. shallow, tachypneic, diminished CARDIAC: ST ABDOMEN: Soft, nondistended, nontender; no hepatosplenomegaly; bowel sounds are present in all four quadrants. EXTREMITIES: Generalized edema. SKIN: Drsg to RUE, LUE, BLE. POWDERER: No focal deficits; Lethargic and oriented to self an place (MonroyLisa Barryshana RUIZ) Assessment and Plan Plan ASSESSMENT: - GIB, likely upper with melanotic stools. Pt reports he has frequent reflux and takes antacids on daily basis at home. Never had PUD. Pt requiring frequent transfusions- S/P 8 units PRBC. 5.2/16.3. Protonix. Not stable for endoscopic evaluation at this time. - Anemia, requiring frequent transfusions. S/P 8 units PRBC. 5.2/16.3. Protonix. Not stable for endoscopic evaluation at this time. Colonoscopy by Dr. Knott (02/13/14)----> 5mm x 1 pedunculated polyp in proximal ascending colon, 4 mm x 4 sessile polyp in sigmoid colon. I do not have the pathology for this, but the reports that he was told that he was good for 10 years. - GERD, requiring daily antacids at home. PPI. - Severe sepsis with worsening leukocytosis. Pt has severe sepsis secondary to necrotizing fascitis secondary to MSSA with MSSA bacteremia. Although he also has E. Coli bacteremia and although the source is unknown, GI etiology is suspected by ID. He is currently on Ancef. He has diarrhea, although what is in the bag is dark greenish brown, but does have some melena leaking from around the tube. ID concerned about possible ischemic colitis. Unable to have contrasted CT scan at this time. Pt is tachypneic, tachycardic, not stable for any endoscopic evaluation at this time. Rpt. CDiff negative. Of note, he does not have any significant abdominal tenderness or red blood in his stool. - RUE infection/wound. S/P Wound Vac, this is off and the plan is for debridement with application of integra once his condition stabilizes per plastics. - Resp. Insuff. Per CCM - DEIRDRE/Electrolyte abnormalities. Creat 1.58. - Chronic hepatitis C. S/P tx with Interferon/Ribavirin 6-7 years ago. reports that he was undetectable during treatment, but did not have a sustained virological response. He has never been told that he has liver cirrhosis. Liver biopsy (04/14/08)----> chronic hepatitis C with mild periportal inflammation grade 2 and mild fibrous portal expansion stage 1. He does not drink ETOH. PLAN: - Place NGT - Once NGT placed, start Glucerna 1.5 at 30cc/hr and increase as tolerated to goal of 60mls/hr as tolerated - Cont. PPI - Monitor HH - Transfuse as necessary - Cont. Abx per ID - Plan will be for egd/colonoscopy for evaluation of anemia, melena, e. coli bacteremia, and worsening leukocytosis, r/o pseudomembranes and ischemic colitis, once clinically stable. If patient becomes intubated, we can plan for endoscopies at that time - Supportive care - Further recommendations to follow based on results of above - Pt seen and examined by Dr. Sanchez and myself and this note is written on his behalf (Lisa Monroy) Physician Comments Patient seen and examined Agree with above Continue with current supportive care Monitor labs Doubt ischemic colitis but we will obtain CT of the abdomen to further evaluate as colonoscopy is not feasible at this point mainly due to respiratory compromise (Con Sanchez MD) Lisa Monroy Dec 18, 2015 10:54 Con Sanchez MD Dec 18, 2015 22:08
[2015-12-18] MEDS: VANCOMYCIN 1,500 MG/NS 500 ML IV SCH ×2 (11:00)
--- NOTE | 2015-12-18 11:34 | HHI.IDPN ---
Subjective Subjective Remarks pt is not doing well today He is bleeding per rectum with quite dark stool His Hb dropped to 5.2 from 8.3 2 days ago WBC jumped to 28 K from 16 K yday, but he remains AF R IJ placed 5 days ago I saw pt during his dressing change, but his RUE dressigs were already changed Per RN RUE wound was clean with no purulence or necrotic tissue and full thickness skin loss His LUE has 2 dry eschars but no erythema or fluctuance or purulence Antibiotics Ancef Lines RIJ and other Line sites with no e/o infection Past Medical History RA HCV sp splenectomy Allergies: Coded Allergies: Compazine (Verified Allergy, Severe, VOMITING, RASH, 08/26/14) SLURRED SPEECH, MIGRAINES Demerol (Verified Allergy, Severe, VOMITING, 08/26/14) Levaquin (Verified Allergy, Severe, 08/26/14) Penicillin (Verified Allergy, Severe, Rash, 08/26/14) Phenergan (Verified Allergy, Severe, VOMITING, 08/26/14) Uncoded Allergies: ANTI-CONVULSIVES (Allergy, Severe, MIGRAINES, SLURRED SPEECH,, 01/23/14) Objective . Vital Signs Date Time Temp Pulse Resp B/P Pulse Ox O2 Delivery O2 Flow Rate FiO2 12/18/15 10:27 30 12/18/15 10:00 123 12/18/15 10:00 123 88/52 12/18/15 09:22 38 12/18/15 08:00 127 12/18/15 08:00 127 97/60 12/18/15 08:00 98.8 127 46 97/60 100 12/18/15 07:00 100 Bi-Pap 30 12/18/15 06:00 123 12/18/15 06:00 122 104/57 12/18/15 04:00 125 12/18/15 04:00 99.2 125 42 108/65 96 12/18/15 04:00 122 108/65 12/18/15 03:56 100 30 12/18/15 02:00 122 12/18/15 02:00 122 107/80 12/18/15 00:47 100 30 12/18/15 00:00 98.8 124 35 91/61 92 12/18/15 00:00 124 91/61 12/18/15 00:00 124 12/17/15 22:53 98 30 12/17/15 22:00 124 12/17/15 22:00 122 113/51 12/17/15 21:00 100 Bi-Pap 30 12/17/15 20:46 92 30 12/17/15 20:00 99.0 132 16 95/52 92 12/17/15 20:00 132 12/17/15 20:00 132 95/52 12/17/15 19:00 92 Nasal Cannula 4.00 12/17/15 18:00 127 12/17/15 18:00 127 89/53 12/17/15 16:00 99.9 130 48 103/58 95 12/17/15 16:00 130 12/17/15 16:00 130 103/58 12/17/15 14:00 129 102/56 12/17/15 14:00 129 12/17/15 12:00 137 12/17/15 12:00 98.0 137 19 113/65 99 12/17/15 12:00 137 113/65 12/17/15 12/17/15 12/18/15 15:00 23:00 07:00 Intake Total 590 ml 488 ml 669 ml Output Total 815 ml 350 ml 650 ml Balance -225 ml 138 ml 19 ml IV Total 590 ml 488 ml 669 ml Output Urine Total 600 ml 200 ml 550 ml Stool Total 200 ml 150 ml 100 ml Drainage Total 15 ml . Laboratory Tests Test 12/17/15 12/18/15 03:25 05:10 White Blood Count 16.9 TH/MM3 28.2 TH/MM3 Red Blood Count 2.64 MIL/MM3 1.78 MIL/MM3 Hemoglobin 7.9 GM/DL 5.2 GM/DL Hematocrit 23.8 % 16.3 % Mean Corpuscular Volume 89.8 FL 91.6 FL Mean Corpuscular Hemoglobin 29.9 PG 29.3 PG Mean Corpuscular Hemoglobin 33.3 % 32.0 % Concent Red Cell Distribution Width 18.0 % 17.3 % Platelet Count 118 TH/MM3 131 TH/MM3 Mean Platelet Volume 10.5 FL 11.0 FL Neutrophils (%) (Auto) 72.0 % 73.3 % Lymphocytes (%) (Auto) 16.8 % 14.7 % Monocytes (%) (Auto) 10.5 % 10.6 % Eosinophils (%) (Auto) 0.1 % 0.4 % Basophils (%) (Auto) 0.6 % 1.0 % Neutrophils # (Auto) 12.1 TH/MM3 20.7 TH/MM3 Lymphocytes # (Auto) 2.8 TH/MM3 4.1 TH/MM3 Monocytes # (Auto) 1.8 TH/MM3 3.0 TH/MM3 Eosinophils # (Auto) 0.0 TH/MM3 0.1 TH/MM3 Basophils # (Auto) 0.1 TH/MM3 0.3 TH/MM3 CBC Comment AUTO DIFF AUTO DIFF Differential Total Cells 100 100 Counted Neutrophils % (Manual) 54 % 68 % Band Neutrophils % 18 % 13 % Lymphocytes % 8 % 2 % Monocytes % 15 % 14 % Neutrophils # (Manual) 12.8 TH/MM3 23.7 TH/MM3 Metamyelocytes 3 % Myelocytes 1 % 3 % Nucleated Red Blood Cells 8 /100 WBC 14 /100 WBC Differential Comment FINAL DIFF FINAL DIFF MANUAL MANUAL Atypical Lymphocytes % Plasma Cells 1 % Platelet Estimate LOW LOW Platelet Morphology Comment NORMAL NORMAL Polychromasia 2.0 % Laboratory Tests Test 12/17/15 12/18/15 03:25 05:10 Sodium Level 153 MEQ/L 153 MEQ/L Potassium Level 3.6 MEQ/L 3.6 MEQ/L Chloride Level 117 MEQ/L 118 MEQ/L Carbon Dioxide Level 27.1 MEQ/L 25.7 MEQ/L Anion Gap 9 MEQ/L 9 MEQ/L Blood Urea Nitrogen 86 MG/DL 104 MG/DL Creatinine 1.52 MG/DL 1.58 MG/DL Estimat Glomerular Filtration 48 ML/MIN 46 ML/MIN Rate Random Glucose 89 MG/DL 121 MG/DL Calcium Level 8.4 MG/DL 7.8 MG/DL Phosphorus Level 5.6 MG/DL Magnesium Level 2.1 MG/DL 1.9 MG/DL Total Bilirubin 0.7 MG/DL Aspartate Amino Transf 56 U/L (AST/SGOT) Alanine Aminotransferase LESS THAN 6 U/L (ALT/SGPT) Alkaline Phosphatase 214 U/L Total Protein 4.9 GM/DL Albumin 1.0 GM/DL Microbiology Date/Time Procedure Status Source Growth 12/16/15 17:45 Urine Culture - Final Complete Urine Clean Catch NO GROWTH IN 48 HOURS. 12/16/15 17:51 Aerobic Blood Culture - Preliminary Resulted Blood Peripheral NO GROWTH IN 2 DAYS 12/16/15 17:51 Anaerobic Blood Culture - Preliminary Resulted Blood Peripheral NO GROWTH IN 2 DAYS 12/16/15 22:46 Aerobic Blood Culture - Preliminary Resulted Blood Peripheral NO GROWTH IN 2 DAYS 12/16/15 22:46 Anaerobic Blood Culture - Final Resulted Blood Peripheral QNS - SEE AEROBE REPORT Imaging Last Impressions Chest X-Ray 12/17/15 0600 Signed Impressions: Service Date/Time: Thursday, December 17, 2015 03:25 - CONCLUSION: Persistent left lower lobe consolidation. Osmar Alegria MD Chest CT 12/14/15 0000 Signed Impressions: Service Date/Time: Monday, December 14, 2015 06:12 - CONCLUSION: 1. Cardiomegaly with bilateral consolidation, likely CHF. Pneumonia cannot be excluded. 2. Small right pleural effusion. Wojciech Lockhart MD Abdomen X-Ray 12/06/15 0000 Signed Impressions: Service Date/Time: November 09:53 - CONCLUSION: Nonspecific KUB. Air is seen within a mildly distended colon but contrast is clearly seen in the rectum. Arnaldo Reyes MD Abdomen/Pelvis CT 12/04/15 0000 Signed Impressions: Service Date/Time: Friday, December 04, 2015 16:24 - CONCLUSION: 1. Mildly distended small bowel in the mid and lower abdomen. Contrast is clearly seen extending into the distal small bowel and ascending colon so a complete obstruction is not seen. A transition point is not seen. This pattern likely represents an ileus versus a partial obstruction. 2. Multiple nonobstructing renal stones. 3. Abnormal appearance of the spleen which appears to represent a splenule. It could be correlated if the patient has had either primary splenic removal or splenic injury and this is what is either left of the spleen or a developing splenule. This is likely of no significance. 4. Mild ascites. 5. Increased density within the gallbladder representing either tumefactive sludge or noncalcified stones. 6. Mild bilateral pleural effusions with prominent areas of lower lobe atelectasis or consolidation at the bases bilaterally. 7. Subacute to chronic bilateral rib fractures and multiple compression fractures in the lower thoracic and lumbar spine as described above. The patient does have a prior CT examination from 08/26/2014. All the compression deformities described above are new when compared to that scan. Arnaldo Reyes MD Head CT 12/02/15 1013 Signed Impressions: Service Date/Time: Wednesday, December 02, 2015 11:00 - CONCLUSION: 1. No intracranial abnormality is seen. 2. Air-fluid level in the right maxillary sinus. Arnaldo Reyes MD Physical Exam GENERAL: Mild - moderate resp distress, receiving breathing tx SKIN: no jaundice. Multiple wounds noted on BLE: L post thigh: partial thickness skin loss, no nectoric 100% pink pale granulations BLE lower wounds also with minimal white necrotic tissue no purulence or fluctuance no erythema HEENT: no icterus, NO nasal drainage NECK: Trachea midline. Supple, nontender. CARDIOVASCULAR: systolic murmur in base of heart RESPIRATORY/CHEST: +diffuse bl rhonchi on auscultation. Breath sounds equal bilaterally. GASTROINTESTINAL: Abdomen moderately distended, soft. Not tender to palpation GENITOURINARY: Sandoval catheter in place with clear, scrotum is mildly edematous. MUSCULOSKELETAL: Extremities no cyanosis, edema 2+. 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 source: suspect GI (bleeding, diarrhea): isch colitis vs C.diff - other infx could include not limited: UTI, PNA, CLABSI - receiving PRBCs PLAN: Continue Ancef repeat C.diff consult GI - colonoscopy if feasible Non contrasted CT BC UA, C+S chk BNP chk Lactic acid dc cefazolin start cefepime , vanco, flagyl, micafunging P w/u D/W RN dw Argelia Kelly MD Dec 18, 2015 11:34
[2015-12-18] MEDS ORDERED: Vancomycin Consult Pharmacy 1 EA IV SCH (11:45)
[2015-12-18] MEDS: metroNIDAZOLE 500 MG INJ 100 ML IV SCH ×2 (12:10→21:13)
[2015-12-18 12:16] LABS: BACTERIA, URINE FEW /hpf; BLOOD, URINE SMALL (NEG); COMMENT (UR) CULT NOT INDICATED; CULTURE IF INDICATED CULT NOT INDICATED; GLUCOSE,URINE NEG (NEG); GRANULAR CAST, URINE 11 /lpf; KETONE, URINE NEG (NEG); NITRITE,URINE NEG (NEG); SQUAMOUS EPITHELIAL CELL URINE 2 /hpf (0-5)
[2015-12-18 12:34] LABS: URINE COLOR DARK-BROWN (YELLW/STRAW)
[2015-12-18] MEDS: MICAFUNGIN INJ 150 MG in SODIUM CHLORIDE 0.9% INJ 100 ML IV SCH (13:22)
[2015-12-18] MEDS: CEFEPIME INJ 2,000 MG in SODIUM CHLORIDE 0.9% INJ 100 ML IV SCH ×2 (13:22→21:13)
[2015-12-18 15:40] LABS: C. DIFF EPI 027 PRESUMPTIVE NEGATIVE (NEGATIVE); C. DIFF TOXIN PCR NEGATIVE (NEGATIVE)
[2015-12-18 16:00] LABS: HEMATOCRIT 23.4 % (39.0-51.0)
[2015-12-18 16:07] LABS: REVIEW FLAG FINAL
--- NOTE | 2015-12-18 17:36 | RADRPT ---
EXAM DATE/TIME: 12/18/2015 16:05 [facility] COMPARISON: No previous studies available for comparison. INDICATIONS : NG tube placement. MEDICAL HISTORY : Cardiovascular disease. Hypertension. Hernia, hiatal. SURGICAL HISTORY : None. ENCOUNTER: Subsequent ACUITY: 3 days PAIN SCORE: Non-responsive. LOCATION: Abdomen, upper quadrant. FINDINGS: Dobbhoff feeding tube tip is at the level of the gastric antrum. The tube is partly coiled in the sto mach. Nonobstructive bowel gas pattern. Nondistended stomach. CONCLUSION: Feeding tube tip is at the gastric antrum. Arnaldo Elias MD on December 18, 2015 at 17:34 Board Certified Radiologist. This report was verified electronically.
[2015-12-18] MEDS: INSULIN DETEMIR 100 UNITS/ML VIAL SQ SCH (21:14)
[2015-12-18 23:26] LABS: REVIEW FLAG FINAL
[2015-12-18 23:28] LABS: HEMATOCRIT 18.6 % (39.0-51.0)
[2015-12-19] VITALS (13 sets, daily range): BP systolic 85–153; BP diastolic 52–72; PULSE 110–125; RESP 22–43; TEMP 97.7–98.1; O2SAT 93–100
[2015-12-19] MEDS: ACETAMINOPHEN 1000 MG/100 ML VIAL IV SCH ×2 (00:11→08:34)
[2015-12-19] MEDS: HYDROmorphone HCL PF 2 MG/ML VIAL IV PUSH PRN ×5 (00:21→14:04)
[2015-12-19] MEDS: SODIUM CHLORIDE 0.9% FLUSH 5 ML FLUSH IVF PRN ×2 (00:21→02:32)
[2015-12-19] MEDS: RESP: ALBUTEROL 2.5 MG/IPRATROPIUM 0.5 MG NEB (SCH) NEB ×4 (03:45→23:31)
[2015-12-19] MEDS: CHLORHEXIDINE GLUCONATE 2 % 1 PACK (2 CLOTHS) TOP SCH (04:00)
[2015-12-19] MEDS: DEXTROSE 5% IN WATE 1000ML INJ 1,000 ML IV SCH (04:05)
[2015-12-19] MEDS: metroNIDAZOLE 500 MG INJ 100 ML IV SCH ×3 (04:59→22:55)
[2015-12-19] MEDS: CEFEPIME INJ 2,000 MG in SODIUM CHLORIDE 0.9% INJ 100 ML IV SCH ×2 (04:59→13:54)
[2015-12-19] MEDS: INSULIN ASPART SUPPLEMENTAL SCALE SQ SCH ×4 (05:00→23:00)
[2015-12-19 05:34] LABS: HEMATOCRIT 21.7 % (39.0-51.0); MEAN CELL VOLUME 83.8 FL (80.0-100.0); MEAN CORPUSCULAR HEMOGLOBIN 28.2 PG (27.0-34.0); MEAN CORPUSCULAR HGB CONC 33.6 % (32.0-36.0); PLATELET COUNT 113 TH/MM3 (150-450); RED BLOOD COUNT 2.58 MIL/MM3 (4.50-5.90); RED CELL DISTRIBUTION WIDTH 16.4 % (11.6-17.2); WHITE BLOOD COUNT 30.1 TH/MM3 (4.0-11.0)
[2015-12-19 05:36] LABS: REVIEW FLAG FINAL
[2015-12-19 05:58] LABS: BICARBONATE 22.2 MEQ/L (21.0-32.0); POTASSIUM 3.7 MEQ/L (3.5-5.1)
[2015-12-19] MEDS: CHLORHEXIDINE 0.12% (ORAL KIT) 15 ML CUP MT SCH (08:00)
[2015-12-19] MEDS ORDERED: SODIUM CHLOR 0.9% 250 ML INJ 250 ML IV ONE ×3 (08:00→22:15)
[2015-12-19] MEDS ORDERED: DIATRIZOATE MEGLUM/DIATRIZOATE SOD 9 ML CUP PO ONE ×2 (08:15→08:30)
--- NOTE | 2015-12-19 08:16 | HHI.CCPN ---
Subjective Remarks/Hospital Course 55-year-old male brought by EMS with altered mental status. He has been confused for 2 days but this morning has been the worst. He has history of chronic opiate medications including methadone and morphine that he takes for pain management and hence they gave him Narcan IV which brought the GCS up to 13. The blood glucose was 74. He has open wounds from his right upper and bilateral lower extremities. He has history of hepatitis C. Last week he was pealing and eating shrimps. Bedside blood sugar was 76 in the ER. He was tachycardic in 1 teens and was intubated in the ED for airway protection. Admitted to ICU with sepsis due to Staph Aureus hand infection and E. Coli bacteriemia. 12/05 Patient remains sedated with Fentanyl and intubated. On Levophed 3 mics, Vasopressin 0.03 mics and Bicarb drip. T:99.8 TF placed on hold OGT to LIWS last night - gastric drainage 525ml overnight. 12/06 Patient is sedated with Fentanyl and intubated, On Levophed 3 mics, off vasopressin. Gastric output 400ml in 24 hrs. KUB abdomen yesterday mildly distended colon otherwise non specific KUB. 12/07 Patient is off sedation remains intubated tolerated CPAP for most day yesterday. Afebrile. on no drips, tolerating tube feeds. 12/08 Patient went to OR yesterday for debridement and irrigation of right forearm and wound VAC placement. Given 2U PRBC and 2u PLT yesterday and currently receiving 1of 2 u additional PRBC. Hgb 7.7, PLT 43 this morning. Patient also started on pressors now on Levophed 10 mics. Vasopressin 0.04 mics. On no sedation. 12/09 Patient remains intubated off pressors, Afebrile. Tolerating tube feeds. Afebrile. 12/10 Patient is sedated with Fentanyl and intubated. Awake and follows commands off sedation. Afebrile. 12/11 Patient had ?SVT overnight given Lopressor 2.5mg IV x1, Remains intubated and sedated with Fentanyl. Afebrile. Tolerating TF. 12/12 Patient spoked fever last night with T: 101.5, sedated with Fentanyl and intubated. 12/13 Patient had an episode of desaturation overnight required increase FIO2/ PEE now on ACV with RR 14, TV 550, PEEP: 12, FIO2 60% with sats 100% CT chest performed overnight showed b/l consolidation and small pleural effusion. Had T: 100.0 last night. 12/14 Tolerating PS 15/CPAP 10 FiO2 40% with rSBI 38, weaning. . Awake and alert , following commands. Hypotensive overnight and levophed restarted up to 12 mcg/ min. Nurse has been weaning throughout the day. Suspected adrenal insufficiency as he was on prednisone as outpatient for gout and has not been on stress dose steroids. Given decadron. 12/15 Transfused 1 unit PRBC for Hgb 7.0 yesterday, 1 unit PRBC for Hgb 6.6 today and now Hgb 8.3. Does not clinically have e/o active GI bleeding and wound vac output nonbloody. Stool 1500 output, C diff negative. No abdominal pain. Remains Awake and alert, remained on CPAP 10/5 last night and is now tolerating CPAP 5/5. 12/16: Extubated yesterday tolerating well. Breathing comfortably. Able to follow commands. UO 1.8 L in 24 hours. Na slightly increased to 153. 12/17: Significantly worse this AM. WBC up to 28 from 16. Hgb 5.2 from 7.9. tachycardic. pale this AM. states he feels tired. Continues on BiPAP. Plan for debridement of his arms today. LIJ CVL does not have any signs of overt infection. Subjective: 12/18: Blood cell count continues to rise today to 30 from 28. Required 1 unit of blood for hemoglobin of 6.6 which improved to 7.7 this morning. However, patient remains tachycardic in the 120s and significantly pale. CT abdomen and pelvis ordered and pending. Tachypneic with respiratory rate in the 30s. Only small amount of dark tarry stool yesterday with approximately 300 cc of stool output. C. difficile toxin negative 3. After discussion with infectious disease, restart vancomycin, cefepime, Flagyl, micafungin. Rey cultures are pending. Per discussion with GI, will not scope as endoscopy is high risk given his tenuous respiratory status this point. Slightly worse hypernatremia as well as worsening acute kidney injury this morning. Objective - Vital Signs Date Time Temp Pulse Resp B/P Pulse Ox O2 Delivery O2 Flow Rate FiO2 12/19/15 07:18 94 Nasal Cannula 2.00 12/19/15 06:00 123 12/19/15 06:00 153/72 12/19/15 04:00 98.1 30 12/19/15 03:45 30 Intake and Output 12/18/15 12/18/15 12/19/15 08:00 16:00 00:00 Intake Total 669 ml 1837 ml 969 ml Output Total 650 ml 650 ml 450 ml Balance 19 ml 1187 ml 519 ml Result Diagram: 12/19/15 0507 12/19/15 0507 Other Results Laboratory Tests Test 12/14/15 12/14/15 05:20 05:49 White Blood Count 14.3 TH/MM3 Red Blood Count 2.49 MIL/MM3 Hemoglobin 7.7 GM/DL Hematocrit 23.7 % Mean Corpuscular Volume 94.8 FL Mean Corpuscular Hemoglobin 30.8 PG Mean Corpuscular Hemoglobin 32.5 % Concent Red Cell Distribution Width 18.1 % Platelet Count 158 TH/MM3 Mean Platelet Volume 10.5 FL Neutrophils (%) (Auto) 67.3 % Lymphocytes (%) (Auto) 20.5 % Monocytes (%) (Auto) 9.5 % Eosinophils (%) (Auto) 1.0 % Basophils (%) (Auto) 1.7 % Neutrophils # (Auto) 9.6 TH/MM3 Lymphocytes # (Auto) 2.9 TH/MM3 Monocytes # (Auto) 1.4 TH/MM3 Eosinophils # (Auto) 0.1 TH/MM3 Basophils # (Auto) 0.2 TH/MM3 CBC Comment AUTO DIFF Differential Total Cells 100 Counted Neutrophils % (Manual) 45 % Band Neutrophils % 24 % Lymphocytes % 18 % Monocytes % 10 % Neutrophils # (Manual) 10.3 TH/MM3 Myelocytes 3 % Nucleated Red Blood Cells 8 /100 WBC Differential Comment FINAL DIFF MANUAL Toxic Granulation 2+ Platelet Estimate NORMAL Platelet Morphology Comment NORMAL Polychromasia 3.2 % Sodium Level 150 MEQ/L Potassium Level 3.5 MEQ/L Chloride Level 114 MEQ/L Carbon Dioxide Level 30.6 MEQ/L Anion Gap 5 MEQ/L Blood Urea Nitrogen 63 MG/DL Creatinine 1.41 MG/DL Estimat Glomerular Filtration 53 ML/MIN Rate Random Glucose 147 MG/DL Calcium Level 8.0 MG/DL Blood Gas Puncture Site RT BRACHIAL Blood Gas Patient Temperature 98.6 Blood Gas HCO3 29 mmol/L Blood Gas Base Excess 4.9 mmol/L Blood Gas Oxygen Saturation 42 % Arterial Blood pH 7.46 Arterial Blood Partial 41 mmHg Pressure CO2 Arterial Blood Partial 26 mmHg Pressure O2 Arterial Blood Oxygen Content 4.5 Vol % Arterial Blood 1.5 % Carboxyhemoglobin Arterial Blood Methemoglobin 1.3 % Blood Gas Hemoglobin 7.5 G/DL Oxygen Delivery Device VENTILATOR Blood Gas Ventilator Setting AC450/14/+12 Blood Gas Inspired Oxygen 100 % Imaging Last Impressions Chest X-Ray 12/17/15 0600 Signed Impressions: Service Date/Time: Thursday, December 17, 2015 03:25 - CONCLUSION: Persistent left lower lobe consolidation. Osmar Alegria MD Chest CT 12/14/15 0000 Signed Impressions: Service Date/Time: Monday, December 14, 2015 06:12 - CONCLUSION: 1. Cardiomegaly with bilateral consolidation, likely CHF. Pneumonia cannot be excluded. 2. Small right pleural effusion. Wojciech Lockhart MD Abdomen X-Ray 12/06/15 0000 Signed Impressions: Service Date/Time: November 09:53 - CONCLUSION: Nonspecific KUB. Air is seen within a mildly distended colon but contrast is clearly seen in the rectum. Arnaldo Reyes MD Abdomen/Pelvis CT 12/04/15 0000 Signed Impressions: Service Date/Time: Friday, December 04, 2015 16:24 - CONCLUSION: 1. Mildly distended small bowel in the mid and lower abdomen. Contrast is clearly seen extending into the distal small bowel and ascending colon so a complete obstruction is not seen. A transition point is not seen. This pattern likely represents an ileus versus a partial obstruction. 2. Multiple nonobstructing renal stones. 3. Abnormal appearance of the spleen which appears to represent a splenule. It could be correlated if the patient has had either primary splenic removal or splenic injury and this is what is either left of the spleen or a developing splenule. This is likely of no significance. 4. Mild ascites. 5. Increased density within the gallbladder representing either tumefactive sludge or noncalcified stones. 6. Mild bilateral pleural effusions with prominent areas of lower lobe atelectasis or consolidation at the bases bilaterally. 7. Subacute to chronic bilateral rib fractures and multiple compression fractures in the lower thoracic and lumbar spine as described above. The patient does have a prior CT examination from 08/26/2014. All the compression deformities described above are new when compared to that scan. Arnaldo Reyes MD Head CT 12/02/15 1013 Signed Impressions: Service Date/Time: Wednesday, December 02, 2015 11:00 - CONCLUSION: 1. No intracranial abnormality is seen. 2. Air-fluid level in the right maxillary sinus. Arnaldo Reyes MD Objective Remarks GENERAL: Patient is awake and following commands. HEENT: pupils equally round and reactive. mucous membranes are dry and pale. NECK: trachea midline. No JVD. RESPIRATORY: Breath sounds equal bilaterally. Tachypneic with mild accessory muscle use.. Currently on nasal cannula. CARDIOVASCULAR:Tachycardic, regular without murmurs GASTROINTESTINAL: soft, non-tender, nondistended. no guarding. Rectal tube in place with melanic appearing stool. MUSCULOSKELETAL: Generalized anasarca. Multiple open wounds in the lower extremity. RUE - with wound vac in place. L upper extremity dressing in place. NEURO: Awake and alert, nods and shakes head to questions. 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 Continually very concerned about the patient. It appears that we do not have source control of a persistent or new infection. I also think his tachycardia is likely secondary to anemia. I will give him 1 more unit of packed red blood cells today for intravascular hypovolemia with symptomatic anemia. He also has a worsening free water deficit and hypernatremia. In addition all this, however, the patient remains with gross anasarca and mild respiratory distress, however unable to diurese the patient given his acute GI bleed and likely active infection with probable early sepsis. Overall, his clinical status has worsened, and I am very concerned that his critical illness is not improving but declining. Neuro: Acute encephalopathy secondary to sepsis (improved) Acute pain secondary to multiple soft tissue infections Chronic pain -- start tylenol 1gm IV q8h scheduled for pain -- Restart oxycodone 20 mg every 4 hours when necessary -- fentanyl patch 75mcg/hr. -- remains off home methadone given renal function -- dilaudid 0.5-2mg iv q4h prn for breakthrough pain. Respiratory Acute respiratory failure-extubated 12/16/15 Acute healthcare associated pneumonia NIGEL on home CPAP --Extubated 12/15 --continues on BiPAP 15/5 30% intermittent as needed --CT chest 12/13 b/l consolidation with small right pleural effusion CV Sepsis Sinus Tachycardia --Off all pressors. --Cortisol level was 14 on 12/14 --Echo 12/07 EF 65-70%, grade I diastolic dysfunction --new sinus tachycardia likely 2/2 anemia and possibly new sepsis/infection. Renal: -DEIRDRE Hypernatremia --Cr malissa today to 1.7 --Hypernatremic -on D5W 75/hr, Na up trended slightly. Continued today. add Free water flushes 250 every 8 --continue Sandoval catheter. FEN/GI Acute protein calorie malnutrition- severe Hypokalemia Possible GI bleed Total body volume overload Intravascular hypovolemia -- per Speech: failed swallow study. NPO. --Dobbhoff tube in place --Glucerna 1.5 at 60 mL/hr -- ICU electrolyte protocol -- Daily BMP -- IV PPI BID Heme: Acute Anemia secondary to acute blood loss Thrombocytopenia- likely 2nd sepsis ( improving) --monitor CBC --Hep PLT ab negative on 12/03 --Second unit of blood ordered for today. --Likely GI source of bleed -Anemia of chronic disease with low sat, ferrous sulfate 325 bid Send stat coags Hemolysis could be a cause of his anemia, although very much less likely. We will send haptoglobin and LDH. ID - Severe sepsis - Necrotizing Fascitis - MSSA on wound culture 12/07. - Ecoli bacteremia 12/01 - MSSA bacteremia 12/05. Cleared on f/u blood culture 12/07, 12/12. Leukocytosis -- Debridement 12/01 p.m at bedside by Dr Pedro and Dr. Hartmann -- R hand, forearm and olecrenon bursa I and D and Wound vac 12/07 Dr Chavez. -- Abx de-escalated to Ancef yesterday per ID. Vancomycin, cefepime, Flagyl, micafungin started 12/17. -- Pancultures 12/12 negative. --12/17 blood cultures: Pending 12/17 central line culture: Pending 12/17 urine cultures: Pending 12/17 sputum cultures: Pending C. difficile toxin 12/17: Negative (3rd negative toxin screen) Endocrine: Hyperglycemia of Critical Illness Diabetes -- Medium dose SSI with accuchecks q6 -- Increase Detemir 10 subcut qhs. -- On D5 with tube feeds Prophylaxis: GI Prophylaxis: -- Protonix 40mg IV BID in the setting of probable GI Bleed. DVT Prophylaxis: -- SCDs --Continue to hold pharmacologic DVT prophylaxis in the setting of GI bleed. Lines: --L IJ CVL placed 12/13 #6. The patient has significantly poor IV access given his multiple wounds. After discussion with the infectious disease team, we are keeping this line in place because the site looks good and does not appear to be infected. We do have cultures that were drawn from the line pending. If these cultures turn positive, or he has signs of bacteremia, we will place this line. -- Sandoval Dispo: -- remain in the [facility] [place], [place]. I continue to be very concerned about the patient given his worsening multiorgan system dysfunction. He remains critically ill. We will closely monitor him today. I'm concerned that if he continues to worsen, he may require reintubation. This patient remains critically ill with one or more organ systems which are or may become a threat to life. I have spent in excess of 49 minutes discontinuously in the care and management of this patient. This time is exclusive of procedures, and includes, but is not limited to, evaluation of the patient, review of the medical record, discussions with family, consultants, nursing staff, or respiratory therapy, and documentation in the medical record. Problem Qualifiers (1) Respiratory failure: Qualified Code: J96.00 - Acute respiratory failure, unspecified whether with hypoxia or hypercapnia (2) Altered mental status: Qualified Code: R41.0 - Delirium (3) Sepsis: Qualified Code: A41.9 - Sepsis, due to unspecified organism Jeyson Fernández MD Dec 19, 2015 08:16
[2015-12-19] MEDS: PANTOPRAZOLE SODIUM 40 MG VIAL IV PUSH SCH (08:34)
[2015-12-19] MEDS: POVIDONE IODINE 10% OINT 30 GM TUBE TOPICAL SCH (08:35)
[2015-12-19 08:47] LABS: APTT (PATIENT) 39.4 SEC (24.3-30.1); HEMATOCRIT 22.4 % (39.0-51.0); INTERNATIONAL NORMALIZED RATIO 1.9 RATIO; MEAN CELL VOLUME 84.2 FL (80.0-100.0); MEAN CORPUSCULAR HEMOGLOBIN 27.6 PG (27.0-34.0); MEAN CORPUSCULAR HGB CONC 32.8 % (32.0-36.0); PLATELET COUNT 123 TH/MM3 (150-450); RED BLOOD COUNT 2.66 MIL/MM3 (4.50-5.90); RED CELL DISTRIBUTION WIDTH 16.9 % (11.6-17.2); WHITE BLOOD COUNT 33.4 TH/MM3 (4.0-11.0)
[2015-12-19 08:55] LABS: HEMO FLAGS AUTO DIFF
[2015-12-19] MEDS ORDERED: oxyCODONE HCL ORAL CONC 20 MG/ML SYRINGE PO PRN (09:00)
[2015-12-19 09:43] LABS: BANDS 8 % (0-6); BLASTS 1 % (0-0); CORRECTED NUCLEATED RBC 16 /100 WBC (0-0); METAMYELOCYTES 3 % (0-1); MYELOCYTES 3 % (0-0); NEUTROPHIL # MANUAL DIFF 27.1 TH/MM3 (1.8-7.7); POLYS (SEG NEUTROPHILS) 67 % (16-70); SCAN/DIFF FINAL DIFF MANUAL; WBC DIFF SAMPLE 100
[2015-12-19 09:44] LABS: PLATELET ESTIMATE SMEAR LOW (NORMAL); PLATELET MORPHOLOGY ENLARGED (NORMAL)
[2015-12-19] MEDS: VANCOMYCIN 1,500 MG/NS 500 ML IV SCH ×2 (10:37)
[2015-12-19] MEDS ORDERED: LACTATED RINGER'S 1000 ML INJ 1,000 ML IV ONE ×2 (10:58→22:15)
[2015-12-19] MEDS ORDERED: SODIUM BICARBONATE 8.4% INJ 50 MEQ/50 ML SYR IV ONE (10:58)
[2015-12-19] MEDS ORDERED: ONDANSETRON HCL 4 MG/2 ML VIAL IV PUSH ONE (10:58)
[2015-12-19] MEDS ORDERED: ePHEDrine/NS 50 MG/5 ML SYR IV ONE (10:58)
[2015-12-19] MEDS ORDERED: PHENYLEPH/NS 1000 MCG/10 ML SYR IV ONE (10:58)
[2015-12-19] MEDS ORDERED: SODIUM CHLOR 0.9% 1000 ML INJ 1,000 ML IV ONE (10:58)
[2015-12-19] MEDS ORDERED: IODIXANOL 320 MG/ML 10 ML VIAL (for Rad CT) IV ONE (11:06)
--- NOTE | 2015-12-19 11:56 | RADRPT ---
EXAM DATE/TIME: 12/19/2015 10:57 [facility] COMPARISON: CT ABDOMEN & PELVIS W CONTRAST, August 26, 2014, 7:31. INDICATIONS : Abdominal pain, evaluate for ischemic colitis IV CONTRAST: 93 cc Visipaque (iodixanol) IV ORAL CONTRAST: Prescribed oral contrast ingested. RADIATION DOSE: 20.25 CTDIvol (mGy) MEDICAL HISTORY : Hypertension. Hepatitis C. SURGICAL HISTORY : None. ENCOUNTER: Initial ACUITY: 1 day PAIN SCALE: 5/10 LOCATION: Diffuse abdomen TECHNIQUE: Volumetric scanning of the abdomen and pelvis was performed. Using automated exposure control and ad justment of the mA and/or kV according to patient size, radiation dose was kept as low as reasonably achievable to obtain optimal diagnostic quality images. FINDINGS: Breathing motion artifact degrades the exam. LOWER LUNGS: Small bilateral pleural effusions and bibasilar consolidation. A small pericardial effusion. LIVER: Homogeneous density without lesion. There is no dilation of the biliary tree. No calcified gallston es. SPLEEN: The spleen is somewhat small and lobulated suggesting prior trauma or perhaps prior splenectomy with residual splenules. The appearance is stable. PANCREAS: Within normal limits. KIDNEYS: Normal in size and shape. There is no mass or hydronephrosis. Small bilateral renal calculi. The la rgest measures 3 mm on the left. Small cortical renal cysts on the right. ADRENAL GLANDS: Within normal limits. VASCULAR: Mild scattered calcified atherosclerotic plaque. No large plaques seen associated with the celiac or SMA origins. The visualized portions of the celiac and SMA are patent. BOWEL/MESENTERY: There is diffuse wall thickening involving the entire colon. It is most pronounced at the splenic fle xure. Moderate volume pneumoperitoneum is observed. Ascitic fluid is noted throughout the abdomen. Th ere is mild dilatation of several loops of small bowel within the left abdomen. A weighted feeding tu be tip is seen within the second portion of the duodenum. A rectal tube is noted. ABDOMINAL WALL: Within normal limits. RETROPERITONEUM: There is no lymphadenopathy. BLADDER: No wall thickening or mass. REPRODUCTIVE: Within normal limits. INGUINAL: There is no lymphadenopathy or hernia. MUSCULOSKELETAL: Multiple subacute bilateral rib fractures noted. Femoral neck screws are seen on the left. Degenerati ve changes are noted within the spine. CONCLUSION: 1. Adjacent volume pneumoperitoneum is observed consistent with perforation of a hollow viscus. This is presumably colonic in origin due to the diffuse inflammatory process involving the colon. I do not clearly identify the source of the pneumoperitoneum however. There is mild dilatation of the small b owel likely an ileus in nature. A significant volume of ascitic fluid is noted. 2. Bibasilar atelectasis and bilateral pleural effusions. 3. Small pericardial effusion. 4. Small bilateral nonobstructing renal calculi. 5. I spoke with Dr. Sanchez concerning the findings. Osmar Chavez Jr., MD on December 19, 2015 at 11:41 Board Certified Radiologist. This report was verified electronically.
[2015-12-19] MEDS ORDERED: PROPOFOL 200 MG/20 ML AMP IV ONE (12:00)
--- NOTE | 2015-12-19 12:24 | HHI.GIFU ---
Subjective Remarks Resting in bed. Pt appears more comfortable than yesterday- still tachypneic, but improved from yesterday. Mild abdominal tenderness, but no significant tenderness/pain noted. Flexiseal with dark greenish brown/slightly melanotic liquid stool. (Lisa Monroy) Objective Vitals I&O Vital Signs Date Time Temp Pulse Resp B/P Pulse Ox O2 Delivery O2 Flow Rate FiO2 12/19/15 07:18 94 Nasal Cannula 2.00 12/19/15 06:00 123 12/19/15 06:00 123 153/72 12/19/15 04:00 98.1 114 30 112/63 100 12/19/15 04:00 116 12/19/15 04:00 116 112/63 12/19/15 03:45 100 30 12/19/15 02:28 98.1 110 22 99/60 100 12/19/15 02:00 115 94/61 12/19/15 02:00 112 12/19/15 00:00 124 97/56 12/19/15 00:00 124 12/19/15 00:00 97.7 124 43 97/56 100 12/18/15 22:48 100 30 12/18/15 22:00 124 12/18/15 22:00 124 94/51 12/18/15 20:31 96 Nasal Cannula 2.00 12/18/15 20:00 117 106/64 12/18/15 20:00 97.7 117 27 106/64 99 12/18/15 20:00 117 12/18/15 19:00 98 Nasal Cannula 3.00 12/18/15 18:20 42 12/18/15 18:00 120 12/18/15 18:00 120 90/55 12/18/15 17:33 42 12/18/15 16:00 99.3 124 42 112/77 100 12/18/15 16:00 124 12/18/15 16:00 124 112/77 12/18/15 15:23 99 Nasal Cannula 2.00 12/18/15 14:00 119 12/18/15 14:00 119 116/76 I/O 12/18/15 12/18/15 12/18/15 12/19/15 12/19/15 12/19/15 07:00 15:00 23:00 07:00 15:00 23:00 Intake Total 669 ml 1837 ml 969 ml 1598 ml Output Total 650 ml 650 ml 450 ml 600 ml Balance 19 ml 1187 ml 519 ml 998 ml IV Total 669 ml 1151 ml 969 ml 1098 ml Packed Cells 686 ml 500 ml Output Urine Total 550 ml 500 ml 350 ml 400 ml Stool Total 100 ml 150 ml 100 ml 200 ml # Bowel Movements 2 Laboratory Laboratory Tests Test 12/18/15 12/18/15 12/19/15 12/19/15 15:00 22:42 01:09 05:07 Hemoglobin 7.7 6.2 7.3 Hematocrit 23.4 18.6 21.7 Blood Type B POSITIVE Crossmatch Leukocyte-Reduced Red Blood Cells Blood Bank Comment White Blood Count 30.1 Red Blood Count 2.58 Mean Corpuscular Volume 83.8 Mean Corpuscular Hemoglobin 28.2 Mean Corpuscular Hemoglobin 33.6 Concent Red Cell Distribution Width 16.4 Platelet Count 113 Mean Platelet Volume 10.6 Haptoglobin 112 Sodium Level 152 Potassium Level 3.7 Chloride Level 119 Carbon Dioxide Level 22.2 Anion Gap 11 Blood Urea Nitrogen 108 Creatinine 1.72 Estimat Glomerular Filtration 42 Rate Random Glucose 172 Calcium Level 7.6 Lactate Dehydrogenase 369 Test 12/19/15 12/19/15 08:07 08:32 Blood Type B POSITIVE Crossmatch Leukocyte-Reduced Red Blood Cells Blood Bank Comment White Blood Count 33.4 Red Blood Count 2.66 Hemoglobin 7.3 Hematocrit 22.4 Mean Corpuscular Volume 84.2 Mean Corpuscular Hemoglobin 27.6 Mean Corpuscular Hemoglobin 32.8 Concent Red Cell Distribution Width 16.9 Platelet Count 123 Mean Platelet Volume 10.4 Neutrophils (%) (Auto) Lymphocytes (%) (Auto) Monocytes (%) (Auto) Eosinophils (%) (Auto) Basophils (%) (Auto) Neutrophils # (Auto) Lymphocytes # (Auto) Monocytes # (Auto) Eosinophils # (Auto) Basophils # (Auto) CBC Comment AUTO DIFF Differential Total Cells 100 Counted Neutrophils % (Manual) 67 Band Neutrophils % 8 Lymphocytes % 14 Monocytes % 4 Neutrophils # (Manual) 27.1 Metamyelocytes 3 Myelocytes 3 Nucleated Red Blood Cells 16 Differential Comment FINAL DIFF MANUAL Blastocytes 1 Platelet Estimate LOW Platelet Morphology Comment ENLARGED Basophilic Stippling FAINT Prothrombin Time 22.0 Prothromb Time International 1.9 Ratio Activated Partial 39.4 Thromboplast Time Date/Time Procedure Status Source Growth 12/18/15 21:52 Aerobic Blood Culture - Preliminary Resulted Blood Peripheral NO GROWTH IN 1 DAY 12/18/15 21:52 Anaerobic Blood Culture - Final Resulted Blood Peripheral QNS - SEE AEROBE REPORT 12/16/15 17:45 Urine Culture - Final Complete Urine Clean Catch NO GROWTH IN 48 HOURS. Imaging Last Impressions Abdomen X-Ray 12/18/15 0000 Signed Impressions: Service Date/Time: Friday, December 18, 2015 16:05 - CONCLUSION: Feeding tube tip is at the gastric antrum. Arnaldo Elias MD Chest X-Ray 12/17/15 0600 Signed Impressions: Service Date/Time: Thursday, December 17, 2015 03:25 - CONCLUSION: Persistent left lower lobe consolidation. Osmar Alegria MD Chest CT 12/14/15 0000 Signed Impressions: Service Date/Time: Monday, December 14, 2015 06:12 - CONCLUSION: 1. Cardiomegaly with bilateral consolidation, likely CHF. Pneumonia cannot be excluded. 2. Small right pleural effusion. Wojciech Lockhart MD Abdomen/Pelvis CT 12/04/15 0000 Signed Impressions: Service Date/Time: Friday, December 04, 2015 16:24 - CONCLUSION: 1. Mildly distended small bowel in the mid and lower abdomen. Contrast is clearly seen extending into the distal small bowel and ascending colon so a complete obstruction is not seen. A transition point is not seen. This pattern likely represents an ileus versus a partial obstruction. 2. Multiple nonobstructing renal stones. 3. Abnormal appearance of the spleen which appears to represent a splenule. It could be correlated if the patient has had either primary splenic removal or splenic injury and this is what is either left of the spleen or a developing splenule. This is likely of no significance. 4. Mild ascites. 5. Increased density within the gallbladder representing either tumefactive sludge or noncalcified stones. 6. Mild bilateral pleural effusions with prominent areas of lower lobe atelectasis or consolidation at the bases bilaterally. 7. Subacute to chronic bilateral rib fractures and multiple compression fractures in the lower thoracic and lumbar spine as described above. The patient does have a prior CT examination from 08/26/2014. All the compression deformities described above are new when compared to that scan. Arnaldo Reyes MD Head CT 12/02/15 1013 Signed Impressions: Service Date/Time: Wednesday, December 02, 2015 11:00 - CONCLUSION: 1. No intracranial abnormality is seen. 2. Air-fluid level in the right maxillary sinus. Arnaldo Reyes MD Physical Exam HEENT: Normocephalic; atraumatic; no jaundice. CHEST: Resp. shallow, tachypneic, diminished CARDIAC: ST ABDOMEN: Soft, nondistended, nontender; no hepatosplenomegaly; bowel sounds are present in all four quadrants. EXTREMITIES: Generalized edema. SKIN: Drsg to RUE, LUE, BLE. CORRECTIVE THERAPY AIDE TEACHER: No focal deficits; Lethargic and oriented to self an place (Lisa Monroy) Assessment and Plan Plan ASSESSMENT: - Abnormal imaging with free air on CT scan. Contrasted CT abdomen and pelvis ( 12/19/15)---> adjacent volume pneumonperitoneum is observed consistent with perforation of a hollow viscus. This is presumably colonic in origin due to the diffuse inflammatory process involving the colon. I do not clearly identify the source of the pneumoperitoneum however. There is mild dilatation of the small bowel likely an ileus in nature. A significant volume of ascitic fluid is noted. Bibasilar atelectasis and bilateral pleural effusions, small pericardia effusion, small bilateral nonobstructing renal calculi. Pt made NPO. Stat GS consult, Dr. Fernández called and spoke to Dr. Miller. Gastric vs. Colonic origin. - Colitis on CT. Multiple abx. CDiff negative. ? Ischemic - GIB, likely upper with melanotic stools. Pt reports he has frequent reflux and takes antacids on daily basis at home. Never had PUD. Pt requiring frequent transfusions- S/P 11 units PRBC. HH 7.3/22.4. Protonix. Not stable for endoscopic evaluation at this time. - Anemia, requiring frequent transfusions. S/P 11units PRBC. HH 7.3/22.4. Will change to Protonix gtt. Colonoscopy by Dr. Knott (02/13/14)----> 5mm x 1 pedunculated polyp in proximal ascending colon, 4 mm x 4 sessile polyp in sigmoid colon. I do not have the pathology for this, but the reports that he was told that he was good for 10 years. - GERD, requiring daily antacids at home. PPI. - Severe sepsis with worsening leukocytosis. Pt has severe sepsis secondary to necrotizing fascitis secondary to MSSA with MSSA bacteremia. Although he also has E. Coli bacteremia and although the source is unknown, GI etiology is suspected by ID. He is currently on Ancef. He has diarrhea, although what is in the bag is dark greenish brown, but does have some melena leaking from around the tube. ID concerned about possible ischemic colitis. CT as above, with pneumoperitoneum. GS notified. Rpt. CDiff negative. - RUE infection/wound. S/P Wound Vac, this is off and the plan is for debridement with application of integra once his condition stabilizes per plastics. - Resp. Insuff. Per [facility]/Electrolyte abnormalities. Creat 1.72 - Chronic hepatitis C. S/P tx with Interferon/Ribavirin 6-7 years ago. reports that he was undetectable during treatment, but did not have a sustained virological response. He has never been told that he has liver cirrhosis. Liver biopsy (04/14/08)----> chronic hepatitis C with mild periportal inflammation grade 2 and mild fibrous portal expansion stage 1. He does not drink ETOH. PLAN: - NPO - Stat GS consult- Dr. Fernández called and spoke to Dr. Miller - Change protonix to protonix gtt - Monitor HH - Transfuse as necessary - Cont. Abx per ID - Supportive care - Further recommendations to follow based on results of above - Pt seen and examined by Dr. Sanchez and myself and this note is written on his behalf (Lisa Monroy) Physician Comments Patient seen and examined Agree with above Continue with current supportive care Monitor labs Plans as per the surgical service (Con Sanchez MD) Lisa Monroy Dec 19, 2015 12:24 Con Sanchez MD Dec 19, 2015 18:32
[2015-12-19] MEDS ORDERED: PHYTONADIONE 10 MG/ML VIAL SQ ONE (13:30)
[2015-12-19] MEDS ORDERED: THROMBIN (TOPICAL) 5,000 UNIT VIAL ONE (13:45)
[2015-12-19] MEDS ORDERED: HEPARIN SODIUM - SQ 10,000 UNITS/ML VIAL ONE (13:45)
[2015-12-19] MEDS ORDERED: BUPIVACAINE/EPINEPHRINE 0.5% 50 ML VIAL ONE (13:45)
[2015-12-19] MEDS ORDERED: GELFOAM SIZE 100 ONE (13:46)
[2015-12-19] MEDS ORDERED: HEPARIN SODIUM - IV 10,000 UNITS/10 ML VIAL ONE (13:46)
[2015-12-19] MEDS ORDERED: ceFAZolin INJ 1,000 MG VIAL ONE (13:46)
[2015-12-19] MEDS: MICAFUNGIN INJ 150 MG in SODIUM CHLORIDE 0.9% INJ 100 ML IV SCH (13:50)
[2015-12-19] MEDS: PANTOPRAZOLE INJ 80 MG in SODIUM CHLORIDE 0.9% INJ 100 ML IV SCH (13:50)
[2015-12-19] MEDS ORDERED: fentaNYL 75 MCG/HR PATCH TD SCH (14:00)
[2015-12-19] MEDS ORDERED: REMOVE OLD FENTANYL PATCH TD SCH (14:00)
--- NOTE | 2015-12-19 15:10 | HHI.PR ---
Addendum to Inpatient Note Additional Information CT findings noted viscus perf : ? C.diff vs ischemic TO OR for emergent sx DW Argelia Briceno MD Dec 19, 2015 15:10
[2015-12-19] MEDS ORDERED: KETAMINE HCL 500 MG/5 ML VIAL ONE (15:13)
[2015-12-19] MEDS ORDERED: NOREPINEPHRINE 4 MG/4 ML AMP ONE ×2 (15:47→18:07)
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
[2015-12-19] MEDS ORDERED: fentaNYL CITRATE 250 MCG/5 ML AMP ONE (18:13)
[2015-12-19 18:37] LABS: BLOOD GAS CARBOXYHEMOGLOBIN 1.8 % (0-4); BLOOD GAS HCO3 19 mmol/L (22-26); BLOOD GAS METHEMOGLOBIN 1.3 % (0-2); BLOOD GAS O2 HGB SATURATION 94 % (90-100); BLOOD GAS OXYGEN CONTENT 10.6 Vol % (12.0-20.0); BLOOD GAS PCO2 37 mmHg (38-42); BLOOD GAS PO2 89 mmHg (61-120); BLOOD GAS TOTAL HGB 7.9 G/DL (12.0-16.0); CRITICAL VALUE NO; DRAW SITE ART LINE; FIO2 50 %; OXYGEN DEVICE VENTILATOR; STAT NO; TEMP CORR TO 98.6; VENT SETTINGS 750/12/PEEP 5/
[2015-12-19] MEDS ORDERED: fentaNYL DRIP 250 ML ONE (18:40)
[2015-12-19] MEDS ORDERED: TERBUTALINE INJ 1 MG/ML AMP SQ PRN (18:45)
[2015-12-19 19:13] LABS: HEMATOCRIT 24.2 % (39.0-51.0); MEAN CELL VOLUME 86.3 FL (80.0-100.0); MEAN CORPUSCULAR HEMOGLOBIN 28.6 PG (27.0-34.0); MEAN CORPUSCULAR HGB CONC 33.1 % (32.0-36.0); PLATELET COUNT 116 TH/MM3 (150-450); RED BLOOD COUNT 2.81 MIL/MM3 (4.50-5.90); RED CELL DISTRIBUTION WIDTH 16.7 % (11.6-17.2); WHITE BLOOD COUNT 42.4 TH/MM3 (4.0-11.0)
--- NOTE | 2015-12-19 19:14 | RADRPT ---
EXAM DATE/TIME: 12/19/2015 18:37 [facility] COMPARISON: CHEST SINGLE AP, December 17, 2015, 3:25. INDICATIONS : ET tube placement. MEDICAL HISTORY : Hypertension. Hepatitis C. SURGICAL HISTORY : None. ENCOUNTER: Initial ACUITY: 1 day PAIN SCORE: Non-responsive. LOCATION: chest FINDINGS: Bilateral lower lobe consolidation and decreased lung compliance with basilar atelectasis. Left jugul ar line tip overlies the SVC. Endotracheal tube tip terminates 1 cm above the gregoria. NG tube courses beneath the diaphragm. CONCLUSION: Endotracheal tube tip terminates 1 cm above the gregoria, with decreased lung volumes noted bilaterally . Arcadio Dickerson MD on December 19, 2015 at 19:11 Board Certified Radiologist. This report was verified electronically.
[2015-12-19 19:17] LABS: HEMO FLAGS AUTO DIFF
[2015-12-19] MEDS: NOREPINEPHRINE-DEXTROSE DRIP 250 ML IV SCH (19:46)
[2015-12-19] MEDS: fentaNYL DRIP 250 ML IV SCH (19:46)
[2015-12-19 20:02] LABS: BANDS 12 % (0-6); CORRECTED NUCLEATED RBC 18 /100 WBC (0-0); KERATOCYTES 1+ (NORMAL); METAMYELOCYTES 4 % (0-1); MYELOCYTES 3 % (0-0); NEUTROPHIL # MANUAL DIFF 36.5 TH/MM3 (1.8-7.7); OVALOCYTES 1+ (NORMAL); POLYS (SEG NEUTROPHILS) 66 % (16-70); PROMYELOCYTES 1 % (0-0); WBC DIFF SAMPLE 100
[2015-12-19 20:03] LABS: PLATELET ESTIMATE SMEAR LOW (NORMAL); PLATELET MORPHOLOGY NORMAL (NORMAL); SCAN/DIFF FINAL DIFF MANUAL
[2015-12-19 20:20] LABS: BICARBONATE 22.9 MEQ/L (21.0-32.0); POTASSIUM 3.5 MEQ/L (3.5-5.1)
[2015-12-19 20:34] LABS: CALCIUM-PROTEIN CORRECTED 9.3 MG/DL (8.5-10.1)
[2015-12-19] MEDS ORDERED: INSULIN DETEMIR 100 UNITS/ML VIAL SQ SCH (21:00)
[2015-12-19] MEDS ORDERED: DEXT 5%-NACL 0.45% 1000 ML INJ 1,000 ML IV SCH (21:15)
[2015-12-19 22:04] LABS: BLOOD GAS BASE EXCESS -8.7 mmol/L (-2-2); BLOOD GAS CARBOXYHEMOGLOBIN 1.6 % (0-4); BLOOD GAS HCO3 18 mmol/L (22-26); BLOOD GAS METHEMOGLOBIN 0.9 % (0-2); BLOOD GAS O2 HGB SATURATION 93 % (90-100); BLOOD GAS OXYGEN CONTENT 10.9 Vol % (12.0-20.0); BLOOD GAS PCO2 52 mmHg (38-42); BLOOD GAS PO2 86 mmHg (61-120); BLOOD GAS TOTAL HGB 8.3 G/DL (12.0-16.0); TEMP CORR TO 98.6
[2015-12-19 22:05] LABS: CRITICAL VALUE YES; OXYGEN DEVICE VENT
[2015-12-19 22:06] LABS: DRAW SITE ART LINE; FIO2 40 %; STAT YES; VENT SETTINGS VAC12/500/PEEP5
[2015-12-19] MEDS ORDERED: LACTATED RINGER'S 1000 ML INJ 1,000 ML ONE ×2 (22:06)
[2015-12-19] MEDS: LACTATED RINGER'S 1000 ML INJ 1,000 ML IV SCH (22:07)
[2015-12-19] MEDS ORDERED: ALBUMIN HUMAN 5% 12.5 GM/250 ML BOTTLE IV ONE (22:24)
[2015-12-19] MEDS ORDERED: VASOPRESSIN INJ 20 UNITS/ML VIAL ONE (22:43)
[2015-12-19] MEDS: VASOPRESSIN INJ 40 UNITS in DEXTROSE 5% IN WATER 100ML INJ 98 ML IV SCH ×2 (22:46)
[2015-12-19] MEDS: HYDROCORTISONE SOD SUCCINATE 100 MG VIAL IV PUSH SCH (23:44)
[2015-12-19 23:57] LABS: BLOOD GAS BASE EXCESS -6.9 mmol/L (-2-2); BLOOD GAS HCO3 18 mmol/L (22-26); BLOOD GAS METHEMOGLOBIN 1.2 % (0-2); BLOOD GAS O2 HGB SATURATION 90 % (90-100); BLOOD GAS OXYGEN CONTENT 8.8 Vol % (12.0-20.0); BLOOD GAS PCO2 35 mmHg (38-42); BLOOD GAS PO2 66 mmHg (61-120); BLOOD GAS TOTAL HGB 6.8 G/DL (12.0-16.0); TEMP CORR TO 98.6
[2015-12-19 23:58] LABS: CRITICAL VALUE YES; DRAW SITE ART LINE; FIO2 40 %; OXYGEN DEVICE VENTILATOR; STAT NO; VENT SETTINGS AC 24/500/5PEEP
[2015-12-20] VITALS (20 sets, daily range): BP systolic 93–117; BP diastolic 54–66; PULSE 90–128; RESP 24–31; TEMP 97.9–99.1; O2SAT 93–99
[2015-12-20] MEDS: PANTOPRAZOLE INJ 80 MG in SODIUM CHLORIDE 0.9% INJ 100 ML IV SCH ×2 (00:45→12:47)
[2015-12-20] MEDS: CHLORHEXIDINE 0.12% (ORAL KIT) 15 ML CUP MT SCH ×3 (01:00→19:38)
[2015-12-20] MEDS: ACETAMINOPHEN 1000 MG/100 ML VIAL IV SCH ×3 (01:00→16:25)
[2015-12-20] MEDS ORDERED: ALBUMIN HUMAN 5% 12.5 GM/250 ML BOTTLE IV ONE (01:12)
[2015-12-20] MEDS: NOREPINEPHRINE-DEXTROSE DRIP 250 ML IV SCH ×2 (01:48→06:57)
[2015-12-20] MEDS: LACTATED RINGER'S 1000 ML INJ 1,000 ML IV SCH ×4 (02:40→18:50)
[2015-12-20] MEDS: RESP: ALBUTEROL 2.5 MG/IPRATROPIUM 0.5 MG NEB (SCH) NEB ×4 (02:57→20:58)
[2015-12-20] MEDS: HYDROCORTISONE SOD SUCCINATE 100 MG VIAL IV PUSH SCH ×4 (03:58→21:18)
[2015-12-20] MEDS: metroNIDAZOLE 500 MG INJ 100 ML IV SCH ×3 (03:58→19:37)
[2015-12-20] MEDS: CHLORHEXIDINE GLUCONATE 2 % 1 PACK (2 CLOTHS) TOP SCH (04:00)
[2015-12-20] MEDS: CEFEPIME INJ 2,000 MG in SODIUM CHLORIDE 0.9% INJ 100 ML IV SCH ×3 (04:44→21:18)
[2015-12-20 04:45] LABS: AUTOMATED NEUTROPHIL # 38.8 TH/MM3 (1.8-7.7); BASOPHIL # 0.2 TH/MM3 (0-0.2); BASOPHIL % 0.5 % (0.0-2.0); LYMPH % 4.1 % (9.0-44.0); LYMPHOCYTE # 1.8 TH/MM3 (1.0-4.8); MEAN CELL VOLUME 85.9 FL (80.0-100.0); MEAN CORPUSCULAR HEMOGLOBIN 28.9 PG (27.0-34.0); MEAN CORPUSCULAR HGB CONC 33.6 % (32.0-36.0); MONO % 5.7 % (0.0-8.0); NEUT % 89.7 % (16.0-70.0); PLATELET COUNT 105 TH/MM3 (150-450); RED BLOOD COUNT 2.91 MIL/MM3 (4.50-5.90); RED CELL DISTRIBUTION WIDTH 16.6 % (11.6-17.2); WHITE BLOOD COUNT 43.2 TH/MM3 (4.0-11.0)
[2015-12-20 04:46] LABS: HEMO FLAGS AUTO DIFF
[2015-12-20 04:51] LABS: BICARBONATE 23.2 MEQ/L (21.0-32.0); MAGNESIUM 1.6 MG/DL (1.5-2.5)
[2015-12-20] MEDS: INSULIN ASPART SUPPLEMENTAL SCALE SQ SCH ×2 (05:00→11:10)
[2015-12-20 05:47] LABS: BLOOD GAS BASE EXCESS -6.6 mmol/L (-2-2); BLOOD GAS CARBOXYHEMOGLOBIN 1.9 % (0-4); BLOOD GAS HCO3 18 mmol/L (22-26); BLOOD GAS METHEMOGLOBIN 0.8 % (0-2); BLOOD GAS O2 HGB SATURATION 90 % (90-100); BLOOD GAS OXYGEN CONTENT 10.5 Vol % (12.0-20.0); BLOOD GAS PCO2 31 mmHg (38-42); BLOOD GAS PO2 62 mmHg (61-120); BLOOD GAS TOTAL HGB 8.3 G/DL (12.0-16.0); CRITICAL VALUE NO; FIO2 45 %; OXYGEN DEVICE VENTILATOR; TEMP CORR TO 98.6; VENT SETTINGS VAC24/500/PEEP5
[2015-12-20 05:48] LABS: DRAW SITE ART LINE; STAT NO
[2015-12-20] MEDS ORDERED: MAGNESIUM SULFATE 1 GM PREMIX 100 ML ONE (05:57)
[2015-12-20] MEDS: fentaNYL DRIP 250 ML IV SCH ×2 (06:57→17:36)
[2015-12-20 07:44] LABS: BANDS 20 % (0-6); CORRECTED NUCLEATED RBC 28 /100 WBC (0-0); METAMYELOCYTES 5 % (0-1); MYELOCYTES 1 % (0-0); NEUTROPHIL # MANUAL DIFF 40.6 TH/MM3 (1.8-7.7); POLYS (SEG NEUTROPHILS) 67 % (16-70); PROMYELOCYTES 1 % (0-0); WBC DIFF SAMPLE 100
[2015-12-20 07:45] LABS: BURR CELLS 1+ (NORMAL); PLATELET ESTIMATE SMEAR LOW (NORMAL); PLATELET MORPHOLOGY ENLARGED (NORMAL)
[2015-12-20 07:46] LABS: SCAN/DIFF FINAL DIFF MANUAL
[2015-12-20] MEDS: POVIDONE IODINE 10% OINT 30 GM TUBE TOPICAL SCH (09:37)
--- NOTE | 2015-12-20 09:49 | HHI.CCPN ---
Subjective Remarks/Hospital Course 55-year-old male brought by EMS with altered mental status. He has been confused for 2 days but this morning has been the worst. He has history of chronic opiate medications including methadone and morphine that he takes for pain management and hence they gave him Narcan IV which brought the GCS up to 13. The blood glucose was 74. He has open wounds from his right upper and bilateral lower extremities. He has history of hepatitis C. Last week he was pealing and eating shrimps. Bedside blood sugar was 76 in the ER. He was tachycardic in 1 teens and was intubated in the ED for airway protection. Admitted to ICU with sepsis due to Staph Aureus hand infection and E. Coli bacteriemia. 12/05 Patient remains sedated with Fentanyl and intubated. On Levophed 3 mics, Vasopressin 0.03 mics and Bicarb drip. T:99.8 TF placed on hold OGT to LIWS last night - gastric drainage 525ml overnight. 12/06 Patient is sedated with Fentanyl and intubated, On Levophed 3 mics, off vasopressin. Gastric output 400ml in 24 hrs. KUB abdomen yesterday mildly distended colon otherwise non specific KUB. 12/07 Patient is off sedation remains intubated tolerated CPAP for most day yesterday. Afebrile. on no drips, tolerating tube feeds. 12/08 Patient went to OR yesterday for debridement and irrigation of right forearm and wound VAC placement. Given 2U PRBC and 2u PLT yesterday and currently receiving 1of 2 u additional PRBC. Hgb 7.7, PLT 43 this morning. Patient also started on pressors now on Levophed 10 mics. Vasopressin 0.04 mics. On no sedation. 12/09 Patient remains intubated off pressors, Afebrile. Tolerating tube feeds. Afebrile. 12/10 Patient is sedated with Fentanyl and intubated. Awake and follows commands off sedation. Afebrile. 12/11 Patient had ?SVT overnight given Lopressor 2.5mg IV x1, Remains intubated and sedated with Fentanyl. Afebrile. Tolerating TF. 12/12 Patient spoked fever last night with T: 101.5, sedated with Fentanyl and intubated. 12/13 Patient had an episode of desaturation overnight required increase FIO2/ PEE now on ACV with RR 14, TV 550, PEEP: 12, FIO2 60% with sats 100% CT chest performed overnight showed b/l consolidation and small pleural effusion. Had T: 100.0 last night. 12/14 Tolerating PS 15/CPAP 10 FiO2 40% with rSBI 38, weaning. . Awake and alert , following commands. Hypotensive overnight and levophed restarted up to 12 mcg/ min. Nurse has been weaning throughout the day. Suspected adrenal insufficiency as he was on prednisone as outpatient for gout and has not been on stress dose steroids. Given decadron. 12/15 Transfused 1 unit PRBC for Hgb 7.0 yesterday, 1 unit PRBC for Hgb 6.6 today and now Hgb 8.3. Does not clinically have e/o active GI bleeding and wound vac output nonbloody. Stool 1500 output, C diff negative. No abdominal pain. Remains Awake and alert, remained on CPAP 10/5 last night and is now tolerating CPAP 5/5. 12/16: Extubated yesterday tolerating well. Breathing comfortably. Able to follow commands. UO 1.8 L in 24 hours. Na slightly increased to 153. 12/17: Significantly worse this AM. WBC up to 28 from 16. Hgb 5.2 from 7.9. tachycardic. pale this AM. states he feels tired. Continues on BiPAP. Plan for debridement of his arms today. LIJ CVL does not have any signs of overt infection. 12/18: Blood cell count continues to rise today to 30 from 28. Required 1 unit of blood for hemoglobin of 6.6 which improved to 7.7 this morning. However, patient remains tachycardic in the 120s and significantly pale. CT abdomen and pelvis ordered and pending. Tachypneic with respiratory rate in the 30s. Only small amount of dark tarry stool yesterday with approximately 300 cc of stool output. C. difficile toxin negative 3. After discussion with infectious disease, restart vancomycin, cefepime, Flagyl, micafungin. Rey cultures are pending. Per discussion with GI, will not scope as endoscopy is high risk given his tenuous respiratory status this point. Slightly worse hypernatremia as well as worsening acute kidney injury this morning. Subjective: 12/19: POD 1 s/p ex-lap, washout for perforated ascending colon with extended right hemicolectomy, primary ileocolic anastamosis, open abdomen, septic shock, acute hypoxic and hypercarbic respiratory failure. Significantly critically ill overnight: required 6L ivf resuscitation, 1 unit prbc, norepinephrine, vasopressin, stress dose hydrocortisone. This morning, remains on high-dose vasopressors. still has large volume ivf requirement. Significant SIRS response. Vent requirements increasing with all this volume resuscitation, PEEP up to 10. He remains critically ill, and although I do believe we have surgical source control, I anticipate he will continue to clinically decline before he starts to make improvements. Objective Vital Signs Date Time Temp Pulse Resp B/P Pulse Ox O2 Delivery O2 Flow Rate FiO2 12/20/15 06:00 128 12/20/15 06:00 116/66 12/20/15 04:00 94 45 12/20/15 04:00 99.1 24 12/19/15 22:00 Mechanical Ventilator Nasal Cannula 12/19/15 07:18 2.00 Intake and Output 12/19/15 12/19/15 12/20/15 08:00 16:00 00:00 Intake Total 1598 ml 2015 ml 3830 ml Output Total 600 ml 450 ml 1185 ml Balance 998 ml 1565 ml 2645 ml Result Diagram: 12/20/15 0420 12/20/15 0420 Other Results Laboratory Tests Test 12/19/15 12/19/15 12/19/15 12/20/15 18:30 21:44 23:00 05:32 Blood Gas Puncture Site ART LINE ART LINE ART LINE ART LINE Blood Gas Patient Temperature 98.6 98.6 98.6 98.6 Blood Gas HCO3 19 mmol/L 18 mmol/L 18 mmol/L 18 mmol/L (22-26) (22-26) (22-26) (22-26) Blood Gas Base Excess -6.0 mmol/L -8.7 mmol/L -6.9 mmol/L -6.6 mmol/L (-2-2) (-2-2) (-2-2) (-2-2) Blood Gas Oxygen Saturation 94 % (90-100) 93 % (90-100) 90 % (90-100) 90 % (90- 100) Arterial Blood pH 7.33 7.17 7.34 7.38 (7.380-7.420) (7.380-7.420) (7.380-7.420) (7.380-7.420) Arterial Blood Partial 37 mmHg (38-42) 52 mmHg (38-42) 35 mmHg (38-42) 31 mmHg ( 38-42) Pressure CO2 Arterial Blood Partial 89 mmHg 86 mmHg 66 mmHg 62 mmHg Pressure O2 (61-120) (61-120) (61-120) (61-120) Arterial Blood Oxygen Content 10.6 Vol % 10.9 Vol % 8.8 Vol % 10.5 Vol % (12.0-20.0) (12.0-20.0) (12.0-20.0) (12.0-20.0) Arterial Blood 1.8 % (0-4) 1.6 % (0-4) 2.0 % (0-4) 1.9 % (0-4) Carboxyhemoglobin Arterial Blood Methemoglobin 1.3 % (0-2) 0.9 % (0-2) 1.2 % (0-2) 0.8 % (0-2) Blood Gas Hemoglobin 7.9 G/DL 8.3 G/DL 6.8 G/DL 8.3 G/DL (12.0-16.0) (12.0-16.0) (12.0-16.0) (12.0-16.0) Oxygen Delivery Device VENTILATOR VENT VENTILATOR VENTILATOR Blood Gas Ventilator Setting 750/12/PEEP 5/ VAC12/500/PEEP5 AC VAC24/500/PEEP5 24/500/5PEEP Blood Gas Inspired Oxygen 50 % 40 % 40 % 45 % Imaging Last Impressions Chest X-Ray 12/17/15 0600 Signed Impressions: Service Date/Time: Thursday, December 17, 2015 03:25 - CONCLUSION: Persistent left lower lobe consolidation. Osmar Alegria MD Chest CT 12/14/15 0000 Signed Impressions: Service Date/Time: Monday, December 14, 2015 06:12 - CONCLUSION: 1. Cardiomegaly with bilateral consolidation, likely CHF. Pneumonia cannot be excluded. 2. Small right pleural effusion. Wojciech Lockhart MD Abdomen X-Ray 12/06/15 0000 Signed Impressions: Service Date/Time: November 09:53 - CONCLUSION: Nonspecific KUB. Air is seen within a mildly distended colon but contrast is clearly seen in the rectum. Arnaldo Reyes MD Abdomen/Pelvis CT 12/04/15 0000 Signed Impressions: Service Date/Time: Friday, December 04, 2015 16:24 - CONCLUSION: 1. Mildly distended small bowel in the mid and lower abdomen. Contrast is clearly seen extending into the distal small bowel and ascending colon so a complete obstruction is not seen. A transition point is not seen. This pattern likely represents an ileus versus a partial obstruction. 2. Multiple nonobstructing renal stones. 3. Abnormal appearance of the spleen which appears to represent a splenule. It could be correlated if the patient has had either primary splenic removal or splenic injury and this is what is either left of the spleen or a developing splenule. This is likely of no significance. 4. Mild ascites. 5. Increased density within the gallbladder representing either tumefactive sludge or noncalcified stones. 6. Mild bilateral pleural effusions with prominent areas of lower lobe atelectasis or consolidation at the bases bilaterally. 7. Subacute to chronic bilateral rib fractures and multiple compression fractures in the lower thoracic and lumbar spine as described above. The patient does have a prior CT examination from 08/26/2014. All the compression deformities described above are new when compared to that scan. Arnaldo Reyes MD Head CT 12/02/15 1013 Signed Impressions: Service Date/Time: Wednesday, December 02, 2015 11:00 - CONCLUSION: 1. No intracranial abnormality is seen. 2. Air-fluid level in the right maxillary sinus. Arnaldo Reyes MD Objective Remarks GENERAL: middle-aged male, lying in bed, intubated, sedated, in distress. critically ill. HEENT: anisocoric pupils L 6mm, R 5mm, reactive. mucous membranes are dry. NECK: trachea midline. obese neck. difficult to assess JVD. left IJ triple lumen catheter in place, site is clean and dry without signs of erythema or drainage. RESPIRATORY: Intubated, ACV 550, rate 24 (overbreathing with rate in the 30s), PEEP 10, fio2 45%. Breath sounds equal bilaterally. coarse rales b/l. CARDIOVASCULAR:Tachycardic, regular without murmurs. GASTROINTESTINAL: Abdomen is left open with midline wound vac in place draining serosanguinous output. Rectal tube in place with melanic appearing stool. MUSCULOSKELETAL: Generalized anasarca. Multiple open wounds in the lower extremity. RUE - with wound vac in place. L upper extremity dressing in place. NEURO: RASS -2. intermittently follows commands. 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 He remains in septic shock on multiple high-dose vasopressors. He is critically ill, and given his already prolonged ICU course and recent acute respiratory failure, his overall prognosis is poor. His chronic steroid use and DM along with his nutritional deficiency make him very high risk for poor wound healing. His prognosis at this point is guarded at best. Neuro: Acute encephalopathy secondary to sepsis Acute pain secondary to multiple soft tissue infections Acute post-surgical pain Chronic pain -- continue tylenol 1gm IV q8h scheduled for pain -- holding oral opiates. -- fentanyl patch 75mcg/hr. -- remains off home methadone given renal function -- dilaudid 0.5-2mg iv q4h prn for breakthrough pain. -- fentanyl infusion for goal RASS -2. Respiratory Acute respiratory failure-extubated 12/16/15, reintubated for surgery 12/18 Acute hypoxic and hypercarbic respiratory failure Acute healthcare associated pneumonia- resolved NIGEL on home CPAP --Extubated 12/15, reintubated for emergent ex-lap 12/18 --ACV 550/24/10/45%. -- Vent bundle -- Head of bed at 30 degrees -- Nebs q6h and q2h prn. -- does not meet SBT criteria today 2/2 hemodynamic instability. --CT chest 12/13 b/l consolidation with small right pleural effusion --I am certainly concerned that his fio2 requirements are increasing, likely 2/ 2 volume resuscitation during this sepsis episode. However, at present, his hemodynamics are too unstable and his SIRS response is requiring adequate fluid resuscitation. CV Septic Shock --Norepinephrine, Vasopressin for map goal > 65 mmHg --Cortisol level was 14 on 12/14 -- stress dose steroids, hydrocortisone 50 q6h. --Echo 12/07 EF 65-70%, grade I diastolic dysfunction -- continue to trend CVP. Renal: -DEIRDRE Hypernatremia --Cr downtrending to 1.5. Initially severely oliguric post-operatively, but now improved with 50-70cc/hr uop. -- discontinued D5W in the setting of acute distributive shock -- continue Sandoval. -- likely he will continue to have ongoing renal insufficiency. He may need renal replacement at some point during this acute illness, but at present, he does not need this. FEN/GI Acute protein calorie malnutrition- severe Hypokalemia perforated right colon with colitis Total body volume overload Intravascular hypovolemia Distributive Shock Anion Gap metabolic acidosis Open abdomen s/p ex-lap, extended right hemicolectomy with primary ileocolic anastamosis, washout, open abdomen (12/18) -- Strict NPO -- (TF recs per Nutrition Glucerna 1.5 at 60cc/hr) -- GI consulted for assistance in prior GI bleeding. -- I discussed with GI and we both agree that the patient's severe nutritional status would warrant TPN. Likely he will remain critically ill for a number of days, and given his abdominal sepsis, will likely have prolonged ileus as well, and given his high risk of poor wound healing, he needs aggressive nutritional supplementation. Will start TPN today. Ordinarily, I would like a new, clean central access for TPN; however, given how difficult iv access is in this patient, we do not have a lot of options. His left IJ TLC has negative blood cultures drawn from the CVL x 48h, so I think it is safe to say this line is not infected, so we will use this line for TPN. -- ICU electrolyte protocol -- Daily BMP -- IV PPI BID --stop protonix drip -- per surgery, likely go back to OR on Thursday for washout and evaluation for possible closure. Heme: Acute Anemia secondary to acute blood loss Thrombocytopenia- likely 2nd sepsis ( improving) --monitor CBC --Hep PLT ab negative on 12/03 -- d/c ferrous sulfate. -- goal Hgb > 7. does not meet transfusion triggers this AM. ID - Septic Shock - Necrotizing Fascitis - MSSA on wound culture 12/07. - Ecoli bacteremia 12/01 - MSSA bacteremia 12/05. Cleared on f/u blood culture 12/07, 12/12. Leukocytosis Sepsis of Intra-abdominal origin. -- Debridement 12/01 p.m at bedside by Dr Pedro and Dr. Hartmann -- R hand, forearm and olecrenon bursa I and D and Wound vac 12/07 Dr Chavez. Vancomycin, cefepime, Flagyl, micafungin started 12/17. --12/17 blood cultures: NGTD 12/17 central line culture: NGTD 12/17 urine cultures: NGTD 12/17 sputum cultures: NGTD C. difficile toxin 12/17: Negative (3rd negative toxin screen) -- ID consulted (Dr. Becerra) Endocrine: Hyperglycemia of Critical Illness Diabetes Presumed acute adrenal insufficiency -- Medium dose SSI with accuchecks q6 -- Detemir 10 subcut qhs. -- continue hydrocortisone 50mg iv q6h. Prophylaxis: GI Prophylaxis: -- Protonix 40mg IV BID. DVT Prophylaxis: -- SCDs --Continue to hold pharmacologic DVT prophylaxis in the setting of acute hemorrhage. Lines: --L IJ CVL placed 12/13. The patient has significantly poor IV access given his multiple wounds. After discussion with the infectious disease team, we are keeping this line in place because the site looks good and does not appear to be infected. We do have cultures that were drawn from the line pending. If these cultures turn positive, or he has signs of bacteremia, we will replace this line. -- Sandoval -- left axillary arterial line 12/18. Dispo: -- remain in the [facility]. He is severely critically ill. This patient remains critically ill with one or more organ systems which are or may become a threat to life. I have spent in excess of 76 minutes discontinuously in the care and management of this patient. This time is exclusive of procedures, and includes, but is not limited to, evaluation of the patient, review of the medical record, discussions with family, consultants, nursing staff, or respiratory therapy, and documentation in the medical record. Problem Qualifiers (1) Respiratory failure: Qualified Code: J96.00 - Acute respiratory failure, unspecified whether with hypoxia or hypercapnia (2) Altered mental status: Qualified Code: R41.0 - Delirium (3) Sepsis: Qualified Code: A41.9 - Sepsis, due to unspecified organism Jeyson Fernández MD Dec 20, 2015 09:49
--- NOTE | 2015-12-20 10:05 | HHI.PR ---
Subjective Subjective Notes DAILY PROGRESS NOTE FOR SURGICAL ATTENDING, DR. NOMI MILLER Intubated/Sedated Objective Vitals/I&O Vital Signs Date Time Temp Pulse Resp B/P Pulse Ox O2 Delivery O2 Flow Rate FiO2 12/20/15 09:45 95 45 12/20/15 06:00 128 12/20/15 06:00 116/66 12/20/15 04:00 99.1 24 12/19/15 22:00 Mechanical Ventilator Nasal Cannula 12/19/15 07:18 2.00 Labs Laboratory Tests Test 12/19/15 12/19/15 12/19/15 12/19/15 13:27 18:30 19:08 21:44 Blood Bank Comment Blood Gas Puncture Site ART LINE ART LINE Blood Gas Patient Temperature 98.6 98.6 Blood Gas HCO3 19 18 Blood Gas Base Excess -6.0 -8.7 Blood Gas Oxygen Saturation 94 93 Arterial Blood pH 7.33 7.17 Arterial Blood Partial 37 52 Pressure CO2 Arterial Blood Partial 89 86 Pressure O2 Arterial Blood Oxygen Content 10.6 10.9 Arterial Blood 1.8 1.6 Carboxyhemoglobin Arterial Blood Methemoglobin 1.3 0.9 Blood Gas Hemoglobin 7.9 8.3 Oxygen Delivery Device VENTILATOR VENT Blood Gas Ventilator Setting 750/12/PEEP 5/ VAC12/500/PEEP5 Blood Gas Inspired Oxygen 50 40 White Blood Count 42.4 Red Blood Count 2.81 Hemoglobin 8.0 Hematocrit 24.2 Mean Corpuscular Volume 86.3 Mean Corpuscular Hemoglobin 28.6 Mean Corpuscular Hemoglobin 33.1 Concent Red Cell Distribution Width 16.7 Platelet Count 116 Mean Platelet Volume 10.3 Neutrophils (%) (Auto) Lymphocytes (%) (Auto) Monocytes (%) (Auto) Eosinophils (%) (Auto) Basophils (%) (Auto) Neutrophils # (Auto) Lymphocytes # (Auto) Monocytes # (Auto) Eosinophils # (Auto) Basophils # (Auto) CBC Comment AUTO DIFF Differential Total Cells 100 Counted Neutrophils % (Manual) 66 Band Neutrophils % 12 Lymphocytes % 7 Monocytes % 7 Neutrophils # (Manual) 36.5 Metamyelocytes 4 Myelocytes 3 Promyelocytes 1 Nucleated Red Blood Cells 18 Differential Comment FINAL DIFF MANUAL Platelet Estimate LOW Platelet Morphology Comment NORMAL Ovalocytes 1+ Keratocytes 1+ Sodium Level 149 Potassium Level 3.5 Chloride Level 119 Carbon Dioxide Level 22.9 Anion Gap 7 Blood Urea Nitrogen 105 Creatinine 1.59 Estimat Glomerular Filtration 46 Rate Random Glucose 129 Calcium Level 7.4 Protein Corrected Calcium 9.3 Total Protein 3.9 Test 12/19/15 12/19/15 12/19/15 12/20/15 23:00 23:08 23:25 04:20 Blood Gas Puncture Site ART LINE Blood Gas Patient Temperature 98.6 Blood Gas HCO3 18 Blood Gas Base Excess -6.9 Blood Gas Oxygen Saturation 90 Arterial Blood pH 7.34 Arterial Blood Partial 35 Pressure CO2 Arterial Blood Partial 66 Pressure O2 Arterial Blood Oxygen Content 8.8 Arterial Blood 2.0 Carboxyhemoglobin Arterial Blood Methemoglobin 1.2 Blood Gas Hemoglobin 6.8 Oxygen Delivery Device VENTILATOR Blood Gas Ventilator Setting AC 24/500/5PEEP Blood Gas Inspired Oxygen 40 Blood Type B POSITIVE Crossmatch Leukocyte-Reduced Red Blood Cells Blood Bank Comment Lactic Acid Level 1.6 1.5 White Blood Count 43.2 Red Blood Count 2.91 Hemoglobin 8.4 Hematocrit 25.0 Mean Corpuscular Volume 85.9 Mean Corpuscular Hemoglobin 28.9 Mean Corpuscular Hemoglobin 33.6 Concent Red Cell Distribution Width 16.6 Platelet Count 105 Mean Platelet Volume 11.3 Neutrophils (%) (Auto) 89.7 Lymphocytes (%) (Auto) 4.1 Monocytes (%) (Auto) 5.7 Eosinophils (%) (Auto) 0.0 Basophils (%) (Auto) 0.5 Neutrophils # (Auto) 38.8 Lymphocytes # (Auto) 1.8 Monocytes # (Auto) 2.5 Eosinophils # (Auto) 0.0 Basophils # (Auto) 0.2 CBC Comment AUTO DIFF Differential Total Cells 100 Counted Neutrophils % (Manual) 67 Band Neutrophils % 20 Lymphocytes % 2 Monocytes % 4 Neutrophils # (Manual) 40.6 Metamyelocytes 5 Myelocytes 1 Promyelocytes 1 Nucleated Red Blood Cells 28 Differential Comment FINAL DIFF MANUAL Platelet Estimate LOW Platelet Morphology Comment ENLARGED Polychromasia 2.0 Marilee Cells 1+ Sodium Level 148 Potassium Level 4.0 Chloride Level 117 Carbon Dioxide Level 23.2 Anion Gap 8 Blood Urea Nitrogen 97 Creatinine 1.57 Estimat Glomerular Filtration 46 Rate Random Glucose 145 Calcium Level 7.4 Protein Corrected Calcium 9.0 Phosphorus Level 5.1 Magnesium Level 1.6 Total Protein 4.4 Test 12/20/15 05:32 Blood Gas Puncture Site ART LINE Blood Gas Patient Temperature 98.6 Blood Gas HCO3 18 Blood Gas Base Excess -6.6 Blood Gas Oxygen Saturation 90 Arterial Blood pH 7.38 Arterial Blood Partial 31 Pressure CO2 Arterial Blood Partial 62 Pressure O2 Arterial Blood Oxygen Content 10.5 Arterial Blood 1.9 Carboxyhemoglobin Arterial Blood Methemoglobin 0.8 Blood Gas Hemoglobin 8.3 Oxygen Delivery Device VENTILATOR Blood Gas Ventilator Setting VAC24/500/PEEP5 Blood Gas Inspired Oxygen 45 Date/Time Procedure Status Source Growth 12/18/15 21:52 Aerobic Blood Culture - Preliminary Resulted Blood Peripheral NO GROWTH IN 1 DAY 12/18/15 21:52 Anaerobic Blood Culture - Final Resulted Blood Peripheral QNS - SEE AEROBE REPORT 12/16/15 17:45 Urine Culture - Final Complete Urine Clean Catch NO GROWTH IN 48 HOURS. Cardiovascular: Regular Lungs: Clear Abdomen: Other (large Wound Vac in place ) Narrative Exam RIGHT arm with wound vac on Several abrasions with non adherent dressing in place A/P Assessment and Plan 55 year old male POD1 ex lap; resection of RIGHT colon and omentum -Plan for OR tomorrow -Obtain consents -NPO -Pressor support Attending Statement NOTE FOR SURGICAL ATTENDING, DR. NOMI MILLER Patient seen in the ICU Patient discussed with Dr. Shoemaker GI Plan reexploration Thursday with feeding tube ileostomy questionable closure The exam, history, and the medical decision-making described in the above note were completed with the assistance of the mid-level provider. I reviewed and agree with the findings presented. I attest that I had a [id number] encounter with the patient on the same day, and personally performed and documented my assessment and findings in the medical record. This patient was seen and evaluated with the resident director,( if the note is signed by the resident director) under my direct supervision. I agree with above assessment and plan. The following services were provided during this hospital visit: Chart data review, vital sign assessments/reviewing monitor data Review of consultations notes if present. Medication orders/review and/or management Ordering and/or reviewing lab tests Ordering and/or interpreting/reviewing x-rays and/or diagnostic studies Care of the patient and discussion of the patient with the care team Documentation time To help prompt me to consider important information that might be impacting today's encounter and assessment, information from prior notes written by myself or my colleagues may have been "brought forward/copy and pasted" into today's note. Lurdes Felix Dec 20, 2015 10:04 Nomi Miller MD Dec 20, 2015 16:25
[2015-12-20] MEDS ORDERED: PHARMACY ORDERED LAB XX ONE (10:45)
[2015-12-20 10:59] LABS: BLOOD GAS BASE EXCESS -5.2 mmol/L (-2-2); BLOOD GAS CARBOXYHEMOGLOBIN 1.5 % (0-4); BLOOD GAS HCO3 19 mmol/L (22-26); BLOOD GAS METHEMOGLOBIN 0.9 % (0-2); BLOOD GAS O2 HGB SATURATION 92 % (90-100); BLOOD GAS OXYGEN CONTENT 10.1 Vol % (12.0-20.0); BLOOD GAS PCO2 33 mmHg (38-42); BLOOD GAS PO2 71 mmHg (61-120); BLOOD GAS TOTAL HGB 7.7 G/DL (12.0-16.0); CRITICAL VALUE NO; TEMP CORR TO 98.6
[2015-12-20 11:00] LABS: FIO2 45 %; OXYGEN DEVICE VENTILATOR; STAT NO; VENT SETTINGS AC/24/500/+10
[2015-12-20] MEDS: VANCOMYCIN 1,500 MG/NS 500 ML IV SCH ×2 (11:10)
[2015-12-20] MEDS: KETAMINE INJ 500 MG in SODIUM CHLORID 0.9% 500 ML INJ 500 ML IV SCH ×2 (11:15→20:32)
[2015-12-20 11:31] LABS: HEMATOCRIT 22.5 % (39.0-51.0); MEAN CELL VOLUME 86.4 FL (80.0-100.0); MEAN CORPUSCULAR HEMOGLOBIN 28.7 PG (27.0-34.0); MEAN CORPUSCULAR HGB CONC 33.2 % (32.0-36.0); PLATELET COUNT 105 TH/MM3 (150-450); RED BLOOD COUNT 2.61 MIL/MM3 (4.50-5.90); RED CELL DISTRIBUTION WIDTH 16.6 % (11.6-17.2); WHITE BLOOD COUNT 42.6 TH/MM3 (4.0-11.0)
[2015-12-20 11:33] LABS: HEMO FLAGS AUTO DIFF
[2015-12-20 12:10] LABS: BICARBONATE 20.6 MEQ/L (21.0-32.0); MAGNESIUM 2.1 MG/DL (1.5-2.5); POTASSIUM 4.1 MEQ/L (3.5-5.1)
[2015-12-20 12:23] LABS: CALCIUM-PROTEIN CORRECTED 9.1 MG/DL (8.5-10.1)
[2015-12-20 12:48] LABS: BANDS 20 % (0-6); CORRECTED NUCLEATED RBC 34 /100 WBC (0-0); METAMYELOCYTES 7 % (0-1); MYELOCYTES 3 % (0-0); NEUTROPHIL # MANUAL DIFF 35.4 TH/MM3 (1.8-7.7); POLYS (SEG NEUTROPHILS) 53 % (16-70); WBC DIFF SAMPLE 100
[2015-12-20 12:49] LABS: PLATELET ESTIMATE SMEAR LOW (NORMAL); PLATELET MORPHOLOGY NORMAL (NORMAL); POLYCHROMASIA 3.5 % (0.0-1.9); SCAN/DIFF FINAL DIFF MANUAL
[2015-12-20 12:50] LABS: ACANTHOCYTES 1+ (NORMAL); TOXIC GRANULATION 1+ (NORMAL)
[2015-12-20] MEDS: VASOPRESSIN INJ 40 UNITS in DEXTROSE 5% IN WATER 100ML INJ 98 ML IV SCH ×2 (13:27)
[2015-12-20] MEDS: MICAFUNGIN INJ 150 MG in SODIUM CHLORIDE 0.9% INJ 100 ML IV SCH (13:52)
--- NOTE | 2015-12-20 14:23 | HHI.IDPN ---
Subjective Subjective Remarks events noted pt cont to deteriorate and CT A/P was done yday and showed viscus perforation Pt was taken to emergent resection His abd remains opened His pressors are weaned down good UOP Antibiotics cefepime , vanco, flagyl, micafungin Lines RIJ and other Line sites with no e/o infection Past Medical History RA HCV sp splenectomy Allergies: Coded Allergies: Compazine (Verified Allergy, Severe, VOMITING, RASH, 08/26/14) SLURRED SPEECH, MIGRAINES Demerol (Verified Allergy, Severe, VOMITING, 08/26/14) Levaquin (Verified Allergy, Severe, 08/26/14) Penicillin (Verified Allergy, Severe, Rash, 08/26/14) Phenergan (Verified Allergy, Severe, VOMITING, 08/26/14) Uncoded Allergies: ANTI-CONVULSIVES (Allergy, Severe, MIGRAINES, SLURRED SPEECH,, 01/23/14) Objective . Vital Signs Date Time Temp Pulse Resp B/P Pulse Ox O2 Delivery O2 Flow Rate FiO2 12/20/15 12:49 97 45 12/20/15 12:00 103 12/20/15 10:00 116 12/20/15 09:45 95 45 12/20/15 08:00 126 12/20/15 06:00 128 12/20/15 06:00 116/66 12/20/15 04:00 117/64 Automatic Cuff 12/20/15 04:00 125 12/20/15 04:00 94 45 12/20/15 04:00 99.1 125 24 117/64 93 Automatic Cuff 12/20/15 02:00 115/63 12/20/15 02:00 125 12/20/15 01:00 96 40 12/20/15 00:00 97.9 120 24 96 109/58 12/20/15 00:00 120 12/20/15 00:00 109/58 12/19/15 22:00 114 12/19/15 22:00 Mechanical Ventilator 40 Nasal Cannula 12/19/15 22:00 97.7 114 24 99 85/52 12/19/15 22:00 100 40 12/19/15 22:00 87/52 12/19/15 20:43 100 40 12/19/15 20:30 110 12 98/50 99 Mechanical Ventilator 40 12/19/15 20:15 100 100 12/19/15 20:04 111 12 121/63 99 Mechanical Ventilator 40 12/19/15 19:30 109 12 135/72 99 Mechanical Ventilator 40 111/62 12/19/15 19:15 96.1 109 12 110/55 99 Mechanical Ventilator 40 12/19/15 19:00 108 12 134/76 99 Mechanical Ventilator 40 113/75 12/19/15 18:45 107 12 153/85 99 Mechanical Ventilator 40 116/61 12/19/15 18:40 40 12/19/15 18:30 110 12 125/84 99 Mechanical Ventilator 40 12/19/15 18:15 109 12 139/71 99 Mechanical Ventilator 60 12/19/15 18:04 93 12 113/72 99 Mechanical Ventilator 60 12/19/15 18:04 60 12/19/15 18:00 98 50 12/19/15 12/19/15 12/20/15 15:00 23:00 07:00 Intake Total 2015 ml 3830 ml 2977 ml Output Total 450 ml 1185 ml 880 ml Balance 1565 ml 2645 ml 2097 ml IV Total 1095 ml 3580 ml 2477 ml Tube Feeding 150 ml Albumin 250 ml 250 ml Packed Cells 250 ml 250 ml Tube Irrigant 40 ml Other 480 ml Output Urine Total 150 ml 125 ml 405 ml Stool Total 300 ml 300 ml 50 ml Drainage Total 660 ml 425 ml Estimated Blood Loss 100 ml . Laboratory Tests Test 12/18/15 12/18/15 12/19/15 12/19/15 15:00 22:42 05:07 08:32 Hemoglobin 7.7 GM/DL 6.2 GM/DL 7.3 GM/DL 7.3 GM/DL Hematocrit 23.4 % 18.6 % 21.7 % 22.4 % White Blood Count 30.1 TH/MM3 33.4 TH/MM3 Red Blood Count 2.58 MIL/MM3 2.66 MIL/MM3 Mean Corpuscular Volume 83.8 FL 84.2 FL Mean Corpuscular Hemoglobin 28.2 PG 27.6 PG Mean Corpuscular Hemoglobin 33.6 % 32.8 % Concent Red Cell Distribution Width 16.4 % 16.9 % Platelet Count 113 TH/MM3 123 TH/MM3 Mean Platelet Volume 10.6 FL 10.4 FL Haptoglobin 112 MG/DL Neutrophils (%) (Auto) % Lymphocytes (%) (Auto) % Monocytes (%) (Auto) % Eosinophils (%) (Auto) % Basophils (%) (Auto) % Neutrophils # (Auto) TH/MM3 Lymphocytes # (Auto) TH/MM3 Monocytes # (Auto) TH/MM3 Eosinophils # (Auto) TH/MM3 Basophils # (Auto) TH/MM3 CBC Comment AUTO DIFF Differential Total Cells 100 Counted Neutrophils % (Manual) 67 % Band Neutrophils % 8 % Lymphocytes % 14 % Monocytes % 4 % Neutrophils # (Manual) 27.1 TH/MM3 Metamyelocytes 3 % Myelocytes 3 % Nucleated Red Blood Cells 16 /100 WBC Differential Comment FINAL DIFF MANUAL Blastocytes 1 % Platelet Estimate LOW Platelet Morphology Comment ENLARGED Basophilic Stippling FAINT Test 12/19/15 12/20/15 12/20/15 19:08 04:20 10:50 White Blood Count 42.4 TH/MM3 43.2 TH/MM3 42.6 TH/MM3 Red Blood Count 2.81 MIL/MM3 2.91 MIL/MM3 2.61 MIL/MM3 Hemoglobin 8.0 GM/DL 8.4 GM/DL 7.5 GM/DL Hematocrit 24.2 % 25.0 % 22.5 % Mean Corpuscular Volume 86.3 FL 85.9 FL 86.4 FL Mean Corpuscular Hemoglobin 28.6 PG 28.9 PG 28.7 PG Mean Corpuscular Hemoglobin 33.1 % 33.6 % 33.2 % Concent Red Cell Distribution Width 16.7 % 16.6 % 16.6 % Platelet Count 116 TH/MM3 105 TH/MM3 105 TH/MM3 Mean Platelet Volume 10.3 FL 11.3 FL 11.1 FL Neutrophils (%) (Auto) % 89.7 % % Lymphocytes (%) (Auto) % 4.1 % % Monocytes (%) (Auto) % 5.7 % % Eosinophils (%) (Auto) % 0.0 % % Basophils (%) (Auto) % 0.5 % % Neutrophils # (Auto) TH/MM3 38.8 TH/MM3 TH/MM3 Lymphocytes # (Auto) TH/MM3 1.8 TH/MM3 TH/MM3 Monocytes # (Auto) TH/MM3 2.5 TH/MM3 TH/MM3 Eosinophils # (Auto) TH/MM3 0.0 TH/MM3 TH/MM3 Basophils # (Auto) TH/MM3 0.2 TH/MM3 TH/MM3 CBC Comment AUTO DIFF AUTO DIFF AUTO DIFF Differential Total Cells 100 100 100 Counted Neutrophils % (Manual) 66 % 67 % 53 % Band Neutrophils % 12 % 20 % 20 % Lymphocytes % 7 % 2 % 9 % Monocytes % 7 % 4 % 8 % Neutrophils # (Manual) 36.5 TH/MM3 40.6 TH/MM3 35.4 TH/MM3 Metamyelocytes 4 % 5 % 7 % Myelocytes 3 % 1 % 3 % Promyelocytes 1 % 1 % Nucleated Red Blood Cells 18 /100 WBC 28 /100 WBC 34 /100 WBC Differential Comment FINAL DIFF FINAL DIFF FINAL DIFF MANUAL MANUAL MANUAL Platelet Estimate LOW LOW LOW Platelet Morphology Comment NORMAL ENLARGED NORMAL Ovalocytes 1+ Keratocytes 1+ Polychromasia 2.0 % 3.5 % Gary Cells 1+ Toxic Granulation 1+ Basophilic Stippling FAINT Acanthocytes 1+ Laboratory Tests Test 12/19/15 12/19/15 12/19/15 12/20/15 05:07 19:08 23:25 04:20 Sodium Level 152 MEQ/L 149 MEQ/L 148 MEQ/L Potassium Level 3.7 MEQ/L 3.5 MEQ/L 4.0 MEQ/L Chloride Level 119 MEQ/L 119 MEQ/L 117 MEQ/L Carbon Dioxide Level 22.2 MEQ/L 22.9 MEQ/L 23.2 MEQ/L Anion Gap 11 MEQ/L 7 MEQ/L 8 MEQ/L Blood Urea Nitrogen 108 MG/DL 105 MG/DL 97 MG/DL Creatinine 1.72 MG/DL 1.59 MG/DL 1.57 MG/DL Estimat Glomerular Filtration 42 ML/MIN 46 ML/MIN 46 ML/MIN Rate Random Glucose 172 MG/DL 129 MG/DL 145 MG/DL Calcium Level 7.6 MG/DL 7.4 MG/DL 7.4 MG/DL Lactate Dehydrogenase 369 U/L Protein Corrected Calcium 9.3 MG/DL 9.0 MG/DL Total Protein 3.9 GM/DL 4.4 GM/DL Lactic Acid Level 1.6 mmol/L 1.5 mmol/L Phosphorus Level 5.1 MG/DL Magnesium Level 1.6 MG/DL Test 12/20/15 10:50 Sodium Level 147 MEQ/L Potassium Level 4.1 MEQ/L Chloride Level 116 MEQ/L Carbon Dioxide Level 20.6 MEQ/L Anion Gap 10 MEQ/L Blood Urea Nitrogen 94 MG/DL Creatinine 1.57 MG/DL Estimat Glomerular Filtration 46 ML/MIN Rate Random Glucose 172 MG/DL Calcium Level 7.3 MG/DL Protein Corrected Calcium 9.1 MG/DL Magnesium Level 2.1 MG/DL Total Protein 4.1 GM/DL Microbiology Date/Time Procedure Status Source Growth 12/18/15 11:46 Aerobic Blood Culture - Preliminary Resulted Blood Line NO GROWTH IN 2 DAYS 12/18/15 11:46 Anaerobic Blood Culture - Preliminary Resulted Blood Line NO GROWTH IN 2 DAYS 12/18/15 21:39 Aerobic Blood Culture - Preliminary Resulted Blood Peripheral NO GROWTH IN 2 DAYS 12/18/15 21:39 Anaerobic Blood Culture - Preliminary Resulted Blood Peripheral NO GROWTH IN 2 DAYS 12/18/15 21:52 Aerobic Blood Culture - Preliminary Resulted Blood Peripheral NO GROWTH IN 2 DAYS 12/18/15 21:52 Anaerobic Blood Culture - Final Resulted Blood Peripheral QNS - SEE AEROBE REPORT Imaging Last Impressions Chest X-Ray 12/19/15 0000 Signed Impressions: Service Date/Time: Saturday, December 19, 2015 18:37 - CONCLUSION: Endotracheal tube tip terminates 1 cm above the gregoria, with decreased lung volumes noted bilaterally. Arcadio Dickerson MD Abdomen/Pelvis CT 12/19/15 0000 Signed Impressions: Service Date/Time: Saturday, December 19, 2015 10:57 - CONCLUSION: 1. Adjacent volume pneumoperitoneum is observed consistent with perforation of a hollow viscus. This is presumably colonic in origin due to the diffuse inflammatory process involving the colon. I do not clearly identify the source of the pneumoperitoneum however. There is mild dilatation of the small bowel likely an ileus in nature. A significant volume of ascitic fluid is noted. 2. Bibasilar atelectasis and bilateral pleural effusions. 3. Small pericardial effusion. 4. Small bilateral nonobstructing renal calculi. 5. I spoke with Dr. Sanchez concerning the findings. Osmar Chavez Jr., MD Abdomen X-Ray 12/18/15 0000 Signed Impressions: Service Date/Time: Friday, December 18, 2015 16:05 - CONCLUSION: Feeding tube tip is at the gastric antrum. Arnaldo Elias MD Chest CT 12/14/15 0000 Signed Impressions: Service Date/Time: Monday, December 14, 2015 06:12 - CONCLUSION: 1. Cardiomegaly with bilateral consolidation, likely CHF. Pneumonia cannot be excluded. 2. Small right pleural effusion. Wojciech Lockhart MD Head CT 12/02/15 1013 Signed Impressions: Service Date/Time: Wednesday, December 02, 2015 11:00 - CONCLUSION: 1. No intracranial abnormality is seen. 2. Air-fluid level in the right maxillary sinus. Arnaldo Reyes MD Physical Exam GENERAL: Mild - moderate resp distress, receiving breathing tx SKIN: + mild jaundice. Anasarca HEENT: no icterus, NO nasal drainage NECK: Trachea midline. Supple, nontender. CARDIOVASCULAR: systolic murmur in base of heart RESPIRATORY/CHEST: + scattered rhonchi on auscultation. Breath sounds equal bilaterally. GASTROINTESTINAL: Abdomen open with VAC in place x 2 and serosang dc GENITOURINARY: Sandoval catheter in place with clear light yellow urine scrotum is mildly edematous. MUSCULOSKELETAL: Extremities no cyanosis, Edema significant 3+ NEUROLOGICAL: sedated LINES: NO evidence of infection Assessment & Plan Remarks RUE severe nec fasc 2/2 MSSA - skin grafting is planned, but cancelled today 2/2 new problems ( leukocytosis, bleeding) - S/P I and D x 3 - RUE infx clinically resolved MSSA bacteremia 2/2 RUE infx - resoleved Septic shock with MODS - resolved E.coli bacteremia -source is unclear - suspect GI source - repeat BC is negative Immunosuppressed PCN allergy, but no probs with Keflex -per mom Respiratory failure - resolved ARF/ DEIRDRE/ATN 2/2 sepsis -stable Abx associated diarrhea, C.diff negative New issue : severe leukocytosis with WBC of 28 K ? source: suspect GI (bleeding, diarrhea): isch colitis vs C.diff - other infx could include not limited: UTI, PNA, CLABSI - receiving PRBCs PLAN: Continue cefepime ,flagyl, micafunging dc vanco, fu P clx fu path D/W RN dw Argelia Kelly MD Dec 20, 2015 14:23
[2015-12-20] MEDS ORDERED: SODIUM CHLOR 0.9% 250 ML INJ 250 ML IV ONE (14:45)
[2015-12-20] MEDS ORDERED: DEXTROSE 50% IN WATER 50 ML VIAL(D50) IV PUSH PRN (16:45)
[2015-12-20] MEDS: INSULIN NovoLIN REGULAR SUPPLEMENTAL SCALE SQ SCH (20:00)
[2015-12-20] MEDS ORDERED: CLINIMIX E 5/25 2000 mL- >42 mls/hr IV-CENTRAL SCH ×3 (20:00)
[2015-12-21] VITALS (21 sets, daily range): BP systolic 82–120; BP diastolic 50–77; PULSE 74–112; RESP 0–24; TEMP 94.5–98; O2SAT 95–100
[2015-12-21] MEDS: PANTOPRAZOLE INJ 80 MG in SODIUM CHLORIDE 0.9% INJ 100 ML IV SCH (00:15)
[2015-12-21] MEDS: ACETAMINOPHEN 1000 MG/100 ML VIAL IV SCH ×3 (00:42→18:51)
[2015-12-21] MEDS: NOREPINEPHRINE-DEXTROSE DRIP 250 ML IV SCH ×2 (00:46→18:51)
[2015-12-21] MEDS: fentaNYL DRIP 250 ML IV SCH ×2 (00:46→08:35)
[2015-12-21] MEDS: RESP: ALBUTEROL 2.5 MG/IPRATROPIUM 0.5 MG NEB (SCH) NEB ×3 (03:17→16:00)
[2015-12-21] MEDS: HYDROCORTISONE SOD SUCCINATE 100 MG VIAL IV PUSH SCH ×4 (03:38→20:44)
[2015-12-21] MEDS: metroNIDAZOLE 500 MG INJ 100 ML IV SCH ×3 (03:39→20:03)
[2015-12-21] MEDS: CHLORHEXIDINE GLUCONATE 2 % 1 PACK (2 CLOTHS) TOP SCH (03:45)
[2015-12-21] MEDS: INSULIN NovoLIN REGULAR SUPPLEMENTAL SCALE SQ SCH ×4 (04:00→11:35)
[2015-12-21] MEDS: CEFEPIME INJ 2,000 MG in SODIUM CHLORIDE 0.9% INJ 100 ML IV SCH ×3 (04:09→20:44)
[2015-12-21 04:45] LABS: HEMATOCRIT 21.6 % (39.0-51.0); MEAN CELL VOLUME 88.6 FL (80.0-100.0); MEAN CORPUSCULAR HEMOGLOBIN 29.1 PG (27.0-34.0); MEAN CORPUSCULAR HGB CONC 32.8 % (32.0-36.0); PLATELET COUNT 95 TH/MM3 (150-450); RED BLOOD COUNT 2.43 MIL/MM3 (4.50-5.90); RED CELL DISTRIBUTION WIDTH 16.3 % (11.6-17.2); WHITE BLOOD COUNT 34.7 TH/MM3 (4.0-11.0)
[2015-12-21 04:55] LABS: INTERNATIONAL NORMALIZED RATIO 1.2 RATIO; PROTHROMBIN TIME - PATIENT 13.4 SEC (9.8-11.6)
[2015-12-21 05:01] LABS: BICARBONATE 20.2 MEQ/L (21.0-32.0); MAGNESIUM 1.9 MG/DL (1.5-2.5); POTASSIUM 3.8 MEQ/L (3.5-5.1)
[2015-12-21 05:10] LABS: REVIEW FLAG FINAL
[2015-12-21 05:17] LABS: CALCIUM-PROTEIN CORRECTED 8.9 MG/DL (8.5-10.1)
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
[2015-12-21] MEDS ORDERED: FUROSEMIDE INJ 100 MG in SODIUM CHLORIDE 0.9% INJ 90 ML IV SCH ×2 (07:30→15:00)
[2015-12-21] MEDS ORDERED: FUROSEMIDE 40 MG/4 ML VIAL IV PUSH ONE (08:00)
[2015-12-21] MEDS ORDERED: REMOVE OLD PATCH TD SCH (08:30)
[2015-12-21] MEDS: PANTOPRAZOLE SODIUM 40 MG VIAL IV PUSH SCH ×2 (08:33→18:49)
[2015-12-21] MEDS: CHLORHEXIDINE 0.12% (ORAL KIT) 15 ML CUP MT SCH ×2 (08:36→20:04)
[2015-12-21] MEDS: POVIDONE IODINE 10% OINT 30 GM TUBE TOPICAL SCH (08:36)
[2015-12-21] MEDS ORDERED: PROPOFOL 200 MG/20 ML AMP IV ONE (10:00)
[2015-12-21] MEDS ORDERED: PHENYLEPH/NS 1000 MCG/10 ML SYR IV ONE (10:00)
[2015-12-21] MEDS ORDERED: LACTATED RINGER'S 1000 ML INJ 2,000 ML IV ONE (10:00)
[2015-12-21] MEDS ORDERED: BUPIVACAINE/EPINEPHRINE 0.25% PF 30 ML VIAL ONE (10:04)
[2015-12-21] MEDS ORDERED: PHARMACY ORDERED LAB XX ONE (10:45)
--- NOTE | 2015-12-21 11:09 | HHI.PR ---
Addendum to Inpatient Note Addendum Reason: Additional Documentation Additional Information Talked to Dr Chavez (pathologist) colon necrotic, extenting to margins Most likely C.diff dw Argelia Mendoza MD Dec 21, 2015 11:09
--- NOTE | 2015-12-21 12:26 | HHI.CCPN ---
Subjective Remarks/Hospital Course 55-year-old male brought by EMS with altered mental status. He has been confused for 2 days but this morning has been the worst. He has history of chronic opiate medications including methadone and morphine that he takes for pain management and hence they gave him Narcan IV which brought the GCS up to 13. The blood glucose was 74. He has open wounds from his right upper and bilateral lower extremities. He has history of hepatitis C. Last week he was pealing and eating shrimps. Bedside blood sugar was 76 in the ER. He was tachycardic in 1 teens and was intubated in the ED for airway protection. Admitted to ICU with sepsis due to Staph Aureus hand infection and E. Coli bacteriemia. 12/05 Patient remains sedated with Fentanyl and intubated. On Levophed 3 mics, Vasopressin 0.03 mics and Bicarb drip. T:99.8 TF placed on hold OGT to LIWS last night - gastric drainage 525ml overnight. 12/06 Patient is sedated with Fentanyl and intubated, On Levophed 3 mics, off vasopressin. Gastric output 400ml in 24 hrs. KUB abdomen yesterday mildly distended colon otherwise non specific KUB. 12/07 Patient is off sedation remains intubated tolerated CPAP for most day yesterday. Afebrile. on no drips, tolerating tube feeds. 12/08 Patient went to OR yesterday for debridement and irrigation of right forearm and wound VAC placement. Given 2U PRBC and 2u PLT yesterday and currently receiving 1of 2 u additional PRBC. Hgb 7.7, PLT 43 this morning. Patient also started on pressors now on Levophed 10 mics. Vasopressin 0.04 mics. On no sedation. 12/09 Patient remains intubated off pressors, Afebrile. Tolerating tube feeds. Afebrile. 12/10 Patient is sedated with Fentanyl and intubated. Awake and follows commands off sedation. Afebrile. 12/11 Patient had ?SVT overnight given Lopressor 2.5mg IV x1, Remains intubated and sedated with Fentanyl. Afebrile. Tolerating TF. 12/12 Patient spoked fever last night with T: 101.5, sedated with Fentanyl and intubated. 12/13 Patient had an episode of desaturation overnight required increase FIO2/ PEE now on ACV with RR 14, TV 550, PEEP: 12, FIO2 60% with sats 100% CT chest performed overnight showed b/l consolidation and small pleural effusion. Had T: 100.0 last night. 12/14 Tolerating PS 15/CPAP 10 FiO2 40% with rSBI 38, weaning. . Awake and alert , following commands. Hypotensive overnight and levophed restarted up to 12 mcg/ min. Nurse has been weaning throughout the day. Suspected adrenal insufficiency as he was on prednisone as outpatient for gout and has not been on stress dose steroids. Given decadron. 12/15 Transfused 1 unit PRBC for Hgb 7.0 yesterday, 1 unit PRBC for Hgb 6.6 today and now Hgb 8.3. Does not clinically have e/o active GI bleeding and wound vac output nonbloody. Stool 1500 output, C diff negative. No abdominal pain. Remains Awake and alert, remained on CPAP 10/5 last night and is now tolerating CPAP 5/5. 12/16: Extubated yesterday tolerating well. Breathing comfortably. Able to follow commands. UO 1.8 L in 24 hours. Na slightly increased to 153. 12/17: Significantly worse this AM. WBC up to 28 from 16. Hgb 5.2 from 7.9. tachycardic. pale this AM. states he feels tired. Continues on BiPAP. Plan for debridement of his arms today. LIJ CVL does not have any signs of overt infection. 12/18: Blood cell count continues to rise today to 30 from 28. Required 1 unit of blood for hemoglobin of 6.6 which improved to 7.7 this morning. However, patient remains tachycardic in the 120s and significantly pale. CT abdomen and pelvis ordered and pending. Tachypneic with respiratory rate in the 30s. Only small amount of dark tarry stool yesterday with approximately 300 cc of stool output. C. difficile toxin negative 3. After discussion with infectious disease, restart vancomycin, cefepime, Flagyl, micafungin. Rey cultures are pending. Per discussion with GI, will not scope as endoscopy is high risk given his tenuous respiratory status this point. Slightly worse hypernatremia as well as worsening acute kidney injury this morning. 12/19: POD 1 s/p ex-lap, washout for perforated ascending colon with extended right hemicolectomy, primary ileocolic anastamosis, open abdomen, septic shock, acute hypoxic and hypercarbic respiratory failure. Significantly critically ill overnight: required 6L ivf resuscitation, 1 unit prbc, norepinephrine, vasopressin, stress dose hydrocortisone. This morning, remains on high-dose vasopressors. still has large volume ivf requirement. Significant SIRS response. Vent requirements increasing with all this volume resuscitation, PEEP up to 10. He remains critically ill, and although I do believe we have surgical source control, I anticipate he will continue to clinically decline before he starts to make improvements. Subjective: 12/20: Off pressors. follows commands on sedation holiday. +11L over last 3 days during acute illness, +22L since admission. We are going to have to get some of this volume back before we are able to close him given his severe anasarca. Objective Vital Signs Date Time Temp Pulse Resp B/P Pulse Ox O2 Delivery O2 Flow Rate FiO2 12/21/15 12:00 89 12/21/15 12:00 97.5 24 120/77 99 12/21/15 12:00 40 12/19/15 22:00 Mechanical Ventilator Nasal Cannula 12/19/15 07:18 2.00 Intake and Output 12/20/15 12/20/15 12/21/15 08:00 16:00 00:00 Intake Total 2977 ml 2906 ml 2643 ml Output Total 880 ml 1125 ml 570 ml Balance 2097 ml 1781 ml 2073 ml Result Diagram: 12/21/15 0430 12/21/15 0430 Imaging Last Impressions Chest X-Ray 12/17/15 0600 Signed Impressions: Service Date/Time: Thursday, December 17, 2015 03:25 - CONCLUSION: Persistent left lower lobe consolidation. Osmar Alegria MD Chest CT 12/14/15 0000 Signed Impressions: Service Date/Time: Monday, December 14, 2015 06:12 - CONCLUSION: 1. Cardiomegaly with bilateral consolidation, likely CHF. Pneumonia cannot be excluded. 2. Small right pleural effusion. Wojciech Lockhart MD Abdomen X-Ray 12/06/15 0000 Signed Impressions: Service Date/Time: November 09:53 - CONCLUSION: Nonspecific KUB. Air is seen within a mildly distended colon but contrast is clearly seen in the rectum. Arnaldo Reyes MD Abdomen/Pelvis CT 12/04/15 0000 Signed Impressions: Service Date/Time: Friday, December 04, 2015 16:24 - CONCLUSION: 1. Mildly distended small bowel in the mid and lower abdomen. Contrast is clearly seen extending into the distal small bowel and ascending colon so a complete obstruction is not seen. A transition point is not seen. This pattern likely represents an ileus versus a partial obstruction. 2. Multiple nonobstructing renal stones. 3. Abnormal appearance of the spleen which appears to represent a splenule. It could be correlated if the patient has had either primary splenic removal or splenic injury and this is what is either left of the spleen or a developing splenule. This is likely of no significance. 4. Mild ascites. 5. Increased density within the gallbladder representing either tumefactive sludge or noncalcified stones. 6. Mild bilateral pleural effusions with prominent areas of lower lobe atelectasis or consolidation at the bases bilaterally. 7. Subacute to chronic bilateral rib fractures and multiple compression fractures in the lower thoracic and lumbar spine as described above. The patient does have a prior CT examination from 08/26/2014. All the compression deformities described above are new when compared to that scan. Arnaldo Reyes MD Head CT 12/02/15 1013 Signed Impressions: Service Date/Time: Wednesday, December 02, 2015 11:00 - CONCLUSION: 1. No intracranial abnormality is seen. 2. Air-fluid level in the right maxillary sinus. Arnaldo Reyes MD Objective Remarks GENERAL: middle-aged male, lying in bed, intubated, sedated, in distress. critically ill. HEENT: anisocoric pupils L 6mm, R 5mm, reactive. mucous membranes moist. NECK: trachea midline. obese neck. difficult to assess JVD. left IJ triple lumen catheter in place, site is clean and dry without signs of erythema or drainage. RESPIRATORY: Intubated. Breath sounds equal bilaterally. coarse rales b/l. CARDIOVASCULAR:Tachycardic, regular without murmurs. GASTROINTESTINAL: Abdomen is left open with midline wound vac in place draining serosanguinous output, much more serous today. Rectal tube in place with melanic appearing stool. MUSCULOSKELETAL: Generalized anasarca-worse today than yesterday. Multiple open wounds in the lower extremity. RUE - with wound vac in place. L upper extremity dressing in place. NEURO: RASS -2. intermittently follows commands. 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 He has made improvements in his shock state. He is now severely volume overloaded given the large volume resuscitation he required for his shock. He also continues to have an DEIRDRE. Despite this, we are going to have to attempt forced diuresis to optimize his volume status, as this is ultimately keeping him from abdominal closure and progressing his care. Certainly, he is at risk of requiring acute hemodialysis. We will monitor him closely and carefully. His prognosis remains guarded at best. Neuro: Acute encephalopathy secondary to sepsis Acute pain secondary to multiple soft tissue infections Acute post-surgical pain Chronic pain -- continue tylenol 1gm IV q8h scheduled for pain -- holding oral opiates. -- remains off home methadone given renal function -- dilaudid 0.5-2mg iv q4h prn for breakthrough pain. -- fentanyl infusion for goal RASS -2. -- continue ketamine infusion 0.5mg/kg/hr for another 24h. Respiratory Acute respiratory failure-extubated 12/16/15, reintubated for surgery 12/18 Acute hypoxic and hypercarbic respiratory failure Acute healthcare associated pneumonia- resolved NIGEL on home CPAP --Extubated 12/15, reintubated for emergent ex-lap 12/18 --ACV 550/24/10/45%. -- Vent bundle -- Head of bed at 30 degrees -- Nebs q6h and q2h prn. -- does not meet SBT criteria today 2/2 acute volume overload, hypoxia, and going to the OR this afternoon. --CT chest 12/13 b/l consolidation with small right pleural effusion CV Septic Shock- resolving. --Norepinephrine for map goal > 65 mmHg --Cortisol level was 14 on 12/14 -- stress dose steroids, hydrocortisone 50 q6h, we will begin weaning this once his abdominal incision is closed. --Echo 12/07 EF 65-70%, grade I diastolic dysfunction -- continue to trend CVP. Renal: -DEIRDRE Hypernatremia- improving. Acute intravascular and total body volume overload --Cr uptrended to 1.68 (from 1.5). likely this may be evidence of contrast nephropathy with superimposed septic DEIRDRE -- continue Sandoval. -- likely he will continue to have ongoing renal insufficiency. He may need renal replacement at some point during this acute illness, but at present, he does not need this. -- will start lasix drip at 10mg/hr for goal diuresis. We need to start with at least 1-2L/day net negative. To accomplish this, we need a uop of at least 300cc/hr given his intake in abx and TPN. FEN/GI Acute protein calorie malnutrition- severe Hypokalemia perforated right colon with colitis Total body volume overload Intravascular hypervolemia Distributive Shock- resolving Anion Gap metabolic acidosis- resolving Open abdomen s/p ex-lap, extended right hemicolectomy with primary ileocolic anastamosis, washout, open abdomen (12/18) -- Strict NPO -- (TF recs per Nutrition Glucerna 1.5 at 60cc/hr) -- GI consulted for assistance in prior GI bleeding. -- continue TPN. Will decrease volume of TPN to 40cc/hr. -- ICU electrolyte protocol -- Daily BMP -- IV PPI BID -- per surgery, going back to OR today. Heme: Acute Anemia secondary to acute blood loss Thrombocytopenia- likely 2nd sepsis ( improving) --monitor CBC --Hep PLT ab negative on 12/03 -- d/c ferrous sulfate. -- goal Hgb > 7. -- 1 unit prbc today. ID - Septic Shock- resolving - Necrotizing Fascitis - MSSA on wound culture 12/07. - Ecoli bacteremia 12/01 - MSSA bacteremia 12/05. Cleared on f/u blood culture 12/07, 12/12. Leukocytosis Sepsis of Intra-abdominal origin. -- Debridement 12/01 p.m at bedside by Dr Pedro and Dr. Hartmann -- R hand, forearm and olecrenon bursa I and D and Wound vac 12/07 Dr Chavez. Vancomycin, cefepime, Flagyl, micafungin started 12/17. --12/17 blood cultures: NGTD 12/17 central line culture: NGTD 12/17 urine cultures: NGTD 12/17 sputum cultures: NGTD C. difficile toxin 12/17: Negative (3rd negative toxin screen) -- ID consulted (Dr. Becerra) Endocrine: Hyperglycemia of Critical Illness Diabetes Presumed acute adrenal insufficiency -- yesterday we increased his SSI to q4h, high dose. This has not adequately controlled his blood glucose, as they are still in the 200-300s. -- we will transition to insulin drip today. -- increase insulin in TPN. -- continue hydrocortisone 50mg iv q6h. we will consider tapering this once his abdomen is closed. Prophylaxis: GI Prophylaxis: -- Protonix 40mg IV BID. DVT Prophylaxis: -- SCDs --Continue to hold pharmacologic DVT prophylaxis in the setting of acute hemorrhage. Lines: --L IJ CVL placed 12/13. The patient has significantly poor IV access given his multiple wounds. After discussion with the infectious disease team, we are keeping this line in place because the site looks good and does not appear to be infected. We do have cultures that were drawn from the line pending. If these cultures turn positive, or he has signs of bacteremia, we will replace this line. -- Sandoval -- left axillary arterial line 12/18. Dispo: -- remain in the [facility]. He is severely critically ill. This patient remains critically ill with one or more organ systems which are or may become a threat to life. I have spent in excess of 55 minutes discontinuously in the care and management of this patient. This time is exclusive of procedures, and includes, but is not limited to, evaluation of the patient, review of the medical record, discussions with family, consultants, nursing staff, or respiratory therapy, and documentation in the medical record. Problem Qualifiers (1) Respiratory failure: Qualified Code: J96.00 - Acute respiratory failure, unspecified whether with hypoxia or hypercapnia (2) Altered mental status: Qualified Code: R41.0 - Delirium (3) Sepsis: Qualified Code: A41.9 - Sepsis, due to unspecified organism Jeyson Fernández MD Dec 21, 2015 12:25 Qualified Code: A41.9 - Sepsis, due to unspecified organism Jeyson Fernández MD Dec 21, 2015 12:25
[2015-12-21] MEDS ORDERED: DEXTROSE 50% IN WATER 50 ML VIAL(D50) IV PUSH PRN (12:30)
[2015-12-21] MEDS ORDERED: MISC INFORMATION XX ONE (12:30)
[2015-12-21] MEDS: INSULIN REGULAR (IV INFUSION) 100 UNITS in SODIUM CHLORIDE 0.9% INJ 99 ML IV SCH (14:13)
[2015-12-21] MEDS: KETAMINE INJ 500 MG in SODIUM CHLORID 0.9% 500 ML INJ 500 ML IV SCH (14:14)
[2015-12-21] MEDS: MICAFUNGIN INJ 150 MG in SODIUM CHLORIDE 0.9% INJ 100 ML IV SCH (14:27)
[2015-12-21] MEDS ORDERED: THROMBIN (TOPICAL) 5,000 UNIT VIAL ONE (14:29)
[2015-12-21] MEDS ORDERED: GELFOAM SIZE 100 ONE (14:30)
[2015-12-21] MEDS ORDERED: ARTIFICIAL TEARS OPTH OINT 3.5 APPLIC/3.5 GM TUBO ONE (16:22)
[2015-12-21 16:31] LABS: BLOOD GAS BASE EXCESS -9.2 mmol/L (-2-2); BLOOD GAS HCO3 17 mmol/L (22-26); BLOOD GAS METHEMOGLOBIN 1.2 % (0-2); BLOOD GAS O2 HGB SATURATION 97 % (90-100); BLOOD GAS PCO2 39 mmHg (38-42); BLOOD GAS PO2 221 mmHg (61-120); BLOOD GAS TOTAL HGB 9.2 G/DL (12.0-16.0); TEMP CORR TO 98.6
[2015-12-21 16:38] LABS: CRITICAL VALUE YES; FIO2 60 %; OXYGEN DEVICE OR; VENT SETTINGS OR
[2015-12-21 16:39] LABS: STAT YES
[2015-12-21] MEDS ORDERED: fentaNYL CITRATE 250 MCG/5 ML AMP ONE (18:41)
[2015-12-21] MEDS: VASOPRESSIN INJ 40 UNITS in DEXTROSE 5% IN WATER 100ML INJ 98 ML IV SCH ×2 (19:00)
[2015-12-21] MEDS ORDERED: LACTATED RINGER'S 1000 ML INJ 1,000 ML IV ONE (19:30)
[2015-12-21 19:38] LABS: BLOOD GAS BASE EXCESS -11.2 mmol/L (-2-2); BLOOD GAS CARBOXYHEMOGLOBIN 1.8 % (0-4); BLOOD GAS HCO3 15 mmol/L (22-26); BLOOD GAS METHEMOGLOBIN 1.1 % (0-2); BLOOD GAS O2 HGB SATURATION 96 % (90-100); BLOOD GAS OXYGEN CONTENT 9.8 Vol % (12.0-20.0); BLOOD GAS PCO2 37 mmHg (38-42); BLOOD GAS PO2 137 mmHg (61-120); BLOOD GAS TOTAL HGB 7.1 G/DL (12.0-16.0); TEMP CORR TO 98.6
[2015-12-21 19:39] LABS: CRITICAL VALUE YES; DRAW SITE ART LINE; FIO2 45 %; OXYGEN DEVICE VENTILATOR; STAT YES; ULNAR PULSE PRESENT; VENT SETTINGS AC/24/500/PEEP10
[2015-12-21] MEDS: LACTATED RINGER'S 1000 ML INJ 1,000 ML IV SCH (20:00)
[2015-12-21] MEDS: SODIUM ACETATE IV-CENTRAL SCH ×9 (20:03)
[2015-12-21] MEDS: POTASSIUM CHLORIDE IV-CENTRAL SCH ×9 (20:03)
[2015-12-21] MEDS: [UNRECOGNIZED DRUG - OTHER] IV-CENTRAL SCH ×9 (20:03)
[2015-12-21 20:06] LABS: HEMATOCRIT 21.8 % (39.0-51.0); MEAN CELL VOLUME 89.5 FL (80.0-100.0); MEAN CORPUSCULAR HEMOGLOBIN 29.9 PG (27.0-34.0); MEAN CORPUSCULAR HGB CONC 33.4 % (32.0-36.0); PLATELET COUNT 69 TH/MM3 (150-450); RED BLOOD COUNT 2.44 MIL/MM3 (4.50-5.90); RED CELL DISTRIBUTION WIDTH 16.7 % (11.6-17.2); WHITE BLOOD COUNT 36.4 TH/MM3 (4.0-11.0)
[2015-12-21 20:10] LABS: REVIEW FLAG FINAL
[2015-12-21 20:26] LABS: BICARBONATE 20.4 MEQ/L (21.0-32.0); POTASSIUM 3.1 MEQ/L (3.5-5.1)
[2015-12-21] MEDS ORDERED: CALCIUM CHLORIDE 10% SOLN 1 GRAM/10 ML SYR ONE ×2 (20:29→20:32)
[2015-12-21 20:34] LABS: APTT (PATIENT) 52.3 SEC (24.3-30.1); INTERNATIONAL NORMALIZED RATIO 1.5 RATIO; PROTHROMBIN TIME - PATIENT 16.3 SEC (9.8-11.6)
[2015-12-21 20:38] LABS: CALCIUM-PROTEIN CORRECTED 9.7 MG/DL (8.5-10.1)
[2015-12-21] MEDS ORDERED: CALCIUM CHLORIDE 10% SOLN 1 GRAM/10 ML SYR IV ONE (21:30)
--- NOTE | 2015-12-21 22:47 | HHI.IDPN ---
Subjective Subjective Remarks Delayed entry Pt was seen earlier today dw with Dr Chavez (pathologist) - appears to be C.diff necrosis present at margins remians on pressors (weaned) on vent afebrile Antibiotics cefepime , vanco, flagyl, micafungin Lines RIJ and other Line sites with no e/o infection Past Medical History RA HCV sp splenectomy Allergies: Coded Allergies: Compazine (Verified Allergy, Severe, VOMITING, RASH, 08/26/14) SLURRED SPEECH, MIGRAINES Demerol (Verified Allergy, Severe, VOMITING, 08/26/14) Levaquin (Verified Allergy, Severe, 08/26/14) Penicillin (Verified Allergy, Severe, Rash, 08/26/14) Phenergan (Verified Allergy, Severe, VOMITING, 08/26/14) Uncoded Allergies: ANTI-CONVULSIVES (Allergy, Severe, MIGRAINES, SLURRED SPEECH,, 01/23/14) Objective . Vital Signs Date Time Temp Pulse Resp B/P Pulse Ox O2 Delivery O2 Flow Rate FiO2 12/21/15 21:36 100 45 12/21/15 15:30 100 100 12/21/15 14:00 83 12/21/15 14:00 107/71 12/21/15 12:00 89 12/21/15 12:00 97.5 89 24 120/77 99 12/21/15 12:00 120/77 12/21/15 12:00 40 12/21/15 11:52 99 45 12/21/15 10:30 97.6 91 0 119/74 95 12/21/15 10:30 97.6 91 0 119/74 95 12/21/15 10:00 89 12/21/15 10:00 119/75 12/21/15 08:48 100 45 12/21/15 08:00 84 12/21/15 08:00 104/62 12/21/15 08:00 40 12/21/15 08:00 97.7 84 24 104/62 100 12/21/15 06:00 87 12/21/15 04:00 97.8 82 24 104/60 99 12/21/15 04:00 82 12/21/15 04:00 45 12/21/15 03:20 99 45 12/21/15 02:00 74 12/21/15 01:31 99 45 12/21/15 00:00 86 12/21/15 00:00 45 12/21/15 00:00 98.0 86 24 98/56 98 12/20/15 22:56 96 45 12/20/15 12/20/15 12/21/15 15:00 23:00 07:00 Intake Total 2906 ml 2643 ml 2134 ml Output Total 1125 ml 570 ml 1050 ml Balance 1781 ml 2073 ml 1084 ml IV Total 2906 ml 2199 ml 1518 ml TPN/PPN 194 ml 616 ml Packed Cells 250 ml Output Urine Total 425 ml 370 ml 500 ml Stool Total 200 ml Drainage Total 500 ml 200 ml 550 ml . Laboratory Tests Test 12/20/15 12/20/15 12/21/15 12/21/15 04:20 10:50 04:30 19:45 White Blood Count 43.2 TH/MM3 42.6 TH/MM3 34.7 TH/MM3 36.4 TH/MM3 Red Blood Count 2.91 MIL/MM3 2.61 MIL/MM3 2.43 MIL/MM3 2.44 MIL/MM3 Hemoglobin 8.4 GM/DL 7.5 GM/DL 7.1 GM/DL 7.3 GM/DL Hematocrit 25.0 % 22.5 % 21.6 % 21.8 % Mean Corpuscular Volume 85.9 FL 86.4 FL 88.6 FL 89.5 FL Mean Corpuscular Hemoglobin 28.9 PG 28.7 PG 29.1 PG 29.9 PG Mean Corpuscular Hemoglobin 33.6 % 33.2 % 32.8 % 33.4 % Concent Red Cell Distribution Width 16.6 % 16.6 % 16.3 % 16.7 % Platelet Count 105 TH/MM3 105 TH/MM3 95 TH/MM3 69 TH/MM3 Mean Platelet Volume 11.3 FL 11.1 FL 11.2 FL 10.7 FL Neutrophils (%) (Auto) 89.7 % % Lymphocytes (%) (Auto) 4.1 % % Monocytes (%) (Auto) 5.7 % % Eosinophils (%) (Auto) 0.0 % % Basophils (%) (Auto) 0.5 % % Neutrophils # (Auto) 38.8 TH/MM3 TH/MM3 Lymphocytes # (Auto) 1.8 TH/MM3 TH/MM3 Monocytes # (Auto) 2.5 TH/MM3 TH/MM3 Eosinophils # (Auto) 0.0 TH/MM3 TH/MM3 Basophils # (Auto) 0.2 TH/MM3 TH/MM3 CBC Comment AUTO DIFF AUTO DIFF Differential Total Cells 100 100 Counted Neutrophils % (Manual) 67 % 53 % Band Neutrophils % 20 % 20 % Lymphocytes % 2 % 9 % Monocytes % 4 % 8 % Neutrophils # (Manual) 40.6 TH/MM3 35.4 TH/MM3 Metamyelocytes 5 % 7 % Myelocytes 1 % 3 % Promyelocytes 1 % Nucleated Red Blood Cells 28 /100 WBC 34 /100 WBC Differential Comment FINAL DIFF FINAL DIFF MANUAL MANUAL Platelet Estimate LOW LOW Platelet Morphology Comment ENLARGED NORMAL Polychromasia 2.0 % 3.5 % Keyser Cells 1+ Toxic Granulation 1+ Basophilic Stippling FAINT Acanthocytes 1+ Laboratory Tests Test 12/19/15 12/20/15 12/20/15 12/21/15 23:25 04:20 10:50 04:30 Lactic Acid Level 1.6 mmol/L 1.5 mmol/L Sodium Level 148 MEQ/L 147 MEQ/L 146 MEQ/L Potassium Level 4.0 MEQ/L 4.1 MEQ/L 3.8 MEQ/L Chloride Level 117 MEQ/L 116 MEQ/L 117 MEQ/L Carbon Dioxide Level 23.2 MEQ/L 20.6 MEQ/L 20.2 MEQ/L Anion Gap 8 MEQ/L 10 MEQ/L 9 MEQ/L Blood Urea Nitrogen 97 MG/DL 94 MG/DL 89 MG/DL Creatinine 1.57 MG/DL 1.57 MG/DL 1.68 MG/DL Estimat Glomerular Filtration 46 ML/MIN 46 ML/MIN 43 ML/MIN Rate Random Glucose 145 MG/DL 172 MG/DL 271 MG/DL Calcium Level 7.4 MG/DL 7.3 MG/DL 7.2 MG/DL Protein Corrected Calcium 9.0 MG/DL 9.1 MG/DL 8.9 MG/DL Phosphorus Level 5.1 MG/DL 4.6 MG/DL Magnesium Level 1.6 MG/DL 2.1 MG/DL 1.9 MG/DL Total Protein 4.4 GM/DL 4.1 GM/DL 4.1 GM/DL Test 12/21/15 19:45 Sodium Level 147 MEQ/L Potassium Level 3.1 MEQ/L Chloride Level 118 MEQ/L Carbon Dioxide Level 20.4 MEQ/L Anion Gap 9 MEQ/L Blood Urea Nitrogen 81 MG/DL Creatinine 1.39 MG/DL Estimat Glomerular Filtration 53 ML/MIN Rate Random Glucose 210 MG/DL Calcium Level 6.8 MG/DL Protein Corrected Calcium 9.7 MG/DL Total Protein 2.4 GM/DL Microbiology Date/Time Procedure Status Source Growth 12/21/15 15:07 Gram Stain Received Sputum Endotracheal Pending 12/21/15 15:07 Sputum Culture Received Sputum Endotracheal Pending Imaging Last Impressions Chest X-Ray 12/19/15 0000 Signed Impressions: Service Date/Time: Saturday, December 19, 2015 18:37 - CONCLUSION: Endotracheal tube tip terminates 1 cm above the gregoria, with decreased lung volumes noted bilaterally. Arcadio Dickerson MD Abdomen/Pelvis CT 12/19/15 0000 Signed Impressions: Service Date/Time: Saturday, December 19, 2015 10:57 - CONCLUSION: 1. Adjacent volume pneumoperitoneum is observed consistent with perforation of a hollow viscus. This is presumably colonic in origin due to the diffuse inflammatory process involving the colon. I do not clearly identify the source of the pneumoperitoneum however. There is mild dilatation of the small bowel likely an ileus in nature. A significant volume of ascitic fluid is noted. 2. Bibasilar atelectasis and bilateral pleural effusions. 3. Small pericardial effusion. 4. Small bilateral nonobstructing renal calculi. 5. I spoke with Dr. Sanchez concerning the findings. Osmar Chavez Jr., MD Abdomen X-Ray 12/18/15 0000 Signed Impressions: Service Date/Time: Friday, December 18, 2015 16:05 - CONCLUSION: Feeding tube tip is at the gastric antrum. Arnaldo Elias MD Chest CT 12/14/15 0000 Signed Impressions: Service Date/Time: Monday, December 14, 2015 06:12 - CONCLUSION: 1. Cardiomegaly with bilateral consolidation, likely CHF. Pneumonia cannot be excluded. 2. Small right pleural effusion. Wojciech Lockhart MD Head CT 12/02/15 1013 Signed Impressions: Service Date/Time: Wednesday, December 02, 2015 11:00 - CONCLUSION: 1. No intracranial abnormality is seen. 2. Air-fluid level in the right maxillary sinus. Arnaldo Reyes MD Physical Exam GENERAL: On vent , sedated appears toxic SKIN: + mild jaundice. Anasarca HEENT: no icterus, NO nasal drainage orally intubated NECK: Trachea midline. Supple, nontender. CARDIOVASCULAR: systolic murmur in base of heart RESPIRATORY/CHEST: + rhonchi on auscultation. Breath sounds equal bilaterally. GASTROINTESTINAL: Abdomen open with VAC in place x 2 and serosang dc GENITOURINARY: Sandoval catheter in place with clear light yellow urine scrotum is mildly edematous. MUSCULOSKELETAL: Extremities no cyanosis, Edema significant 3+ NEUROLOGICAL: sedated LINES: NO evidence of infection Assessment & Plan Remarks RUE severe nec fasc 2/2 MSSA - skin grafting was planned, but cancelled - S/P I and D x 3 - RUE infx clinically resolved MSSA bacteremia 2/2 RUE infx - resoleved Septic shock with MODS - resolved E.coli bacteremia on presentation -source is liekly gut Immunosuppressed PCN allergy, but no probs with Keflex -per mom Respiratory failure - resolved ARF/ DEIRDRE/ATN 2/2 sepsis -stable Bowel necrosis - suspected C.diff per path vs ischemic later developpement noted; unstable in OR PLAN: Continue cefepime ,flagyl, micafunging restart vanco, fu P clx fu path D/W RN dw Clementina Fernández and Argelia Mendez MD Dec 21, 2015 22:47
[2015-12-21] MEDS: POTASSIUM CHLOR 40 MEQ PREMIX 100 ML IV PRN (23:48)
[2015-12-21] MEDS: ALBUMIN HUMAN 5% 25 GM/500 ML BOTTLE IV PRN ×2 (23:58→23:59)
[2015-12-22] VITALS (27 sets, daily range): BP systolic 89–140; BP diastolic 54–87; PULSE 84–117; RESP 20–24; TEMP 92.5–98.4; O2SAT 99–100
[2015-12-22] MEDS: LACTATED RINGER'S 1000 ML INJ 1,000 ML IV SCH ×5 (01:11→20:04)
[2015-12-22] MEDS: ACETAMINOPHEN 1000 MG/100 ML VIAL IV SCH ×3 (01:21→17:55)
[2015-12-22 01:35] LABS: MEAN CELL VOLUME 84.6 FL (80.0-100.0); MEAN CORPUSCULAR HGB CONC 33.1 % (32.0-36.0); PLATELET COUNT 33 TH/MM3 (150-450); RED BLOOD COUNT 1.75 MIL/MM3 (4.50-5.90); RED CELL DISTRIBUTION WIDTH 17.6 % (11.6-17.2); WHITE BLOOD COUNT 28.1 TH/MM3 (4.0-11.0)
[2015-12-22 01:36] LABS: REVIEW FLAG FINAL
[2015-12-22 01:38] LABS: APTT (PATIENT) 58.8 SEC (24.3-30.1); INTERNATIONAL NORMALIZED RATIO 1.5 RATIO; PROTHROMBIN TIME - PATIENT 16.7 SEC (9.8-11.6)
[2015-12-22 01:39] LABS: HEMATOCRIT 14.8 % (39.0-51.0)
[2015-12-22] MEDS ORDERED: CALCIUM CHLORIDE INJ 2 GM in SODIUM CHLORIDE 0.9% INJ 100 ML IV ONE (02:00)
[2015-12-22 02:37] LABS: BLOOD GAS BASE EXCESS -10.7 mmol/L (-2-2); BLOOD GAS CARBOXYHEMOGLOBIN 2.4 % (0-4); BLOOD GAS HCO3 14 mmol/L (22-26); BLOOD GAS O2 HGB SATURATION 96 % (90-100); BLOOD GAS OXYGEN CONTENT 6.9 Vol % (12.0-20.0); BLOOD GAS PCO2 30 mmHg (38-42); BLOOD GAS PO2 162 mmHg (61-120); BLOOD GAS TOTAL HGB 4.8 G/DL (12.0-16.0); CRITICAL VALUE YES; OXYGEN DEVICE VENTILATOR; TEMP CORR TO 98.6
[2015-12-22 02:38] LABS: DRAW SITE ART LINE; FIO2 40 %; STAT YES; VENT SETTINGS A
[2015-12-22] MEDS ORDERED: SODIUM BICARBONATE 8.4% INJ 50 MEQ/50 ML SYR IV STA (02:43)
[2015-12-22] MEDS: NOREPINEPHRINE-DEXTROSE DRIP 250 ML IV SCH ×2 (02:59→12:40)
[2015-12-22 03:01] LABS: AMYLASE 35 U/L (25-115); ANION GAP 11 MEQ/L (5-15); AST (GOT) 10 U/L (15-37); BICARBONATE 18.8 MEQ/L (21.0-32.0); BLOOD UREA NITROGEN 75 MG/DL (7-18); CHLORIDE 121 MEQ/L (98-107); POTASSIUM 4.4 MEQ/L (3.5-5.1); SODIUM (NA) 151 MEQ/L (136-145)
[2015-12-22] MEDS: HYDROCORTISONE SOD SUCCINATE 100 MG VIAL IV PUSH SCH ×4 (03:01→21:03)
[2015-12-22] MEDS: metroNIDAZOLE 500 MG INJ 100 ML IV SCH ×3 (03:01→20:03)
[2015-12-22] MEDS: CHLORHEXIDINE GLUCONATE 2 % 1 PACK (2 CLOTHS) TOP SCH (03:01)
[2015-12-22 03:04] LABS: ALKALINE PHOSPHATASE 34 U/L (45-117); ALT (GPT) LESS THAN 6 U/L (12-78); GLOMERULAR FILTRATION RATE 58 ML/MIN (>89); INDIRECT BILIRUBIN 0.3 MG/DL (0.0-0.8); TOTAL BILIRUBIN ADULT 0.6 MG/DL (0.2-1.0)
[2015-12-22] MEDS: RESP: ALBUTEROL 2.5 MG/IPRATROPIUM 0.5 MG NEB (SCH) NEB (04:34)
[2015-12-22] MEDS: CEFEPIME INJ 2,000 MG in SODIUM CHLORIDE 0.9% INJ 100 ML IV SCH ×3 (05:07→20:04)
[2015-12-22] MEDS: PANTOPRAZOLE SODIUM 40 MG VIAL IV PUSH SCH ×2 (05:08→17:56)
[2015-12-22 05:35] LABS: HEMATOCRIT 24.9 % (39.0-51.0); MEAN CELL VOLUME 82.8 FL (80.0-100.0); MEAN CORPUSCULAR HEMOGLOBIN 28.3 PG (27.0-34.0); MEAN CORPUSCULAR HGB CONC 34.2 % (32.0-36.0); PLATELET COUNT 47 TH/MM3 (150-450); WHITE BLOOD COUNT 26.6 TH/MM3 (4.0-11.0)
[2015-12-22] MEDS ORDERED: PHARMACY ORDERED LAB XX ONE (06:00)
[2015-12-22 06:01] LABS: REVIEW FLAG FINAL
[2015-12-22] MEDS: KETAMINE INJ 500 MG in SODIUM CHLORID 0.9% 500 ML INJ 500 ML IV SCH ×2 (06:26→13:07)
[2015-12-22 06:46] LABS: AUTOMATED NEUTROPHIL # 13.9 TH/MM3 (1.8-7.7); BASOPHIL # 0.1 TH/MM3 (0-0.2); BASOPHIL % 0.5 % (0.0-2.0); LYMPH % 9.7 % (9.0-44.0); LYMPHOCYTE # 1.7 TH/MM3 (1.0-4.8); MEAN CELL VOLUME 82.1 FL (80.0-100.0); MEAN CORPUSCULAR HEMOGLOBIN 28.1 PG (27.0-34.0); MEAN CORPUSCULAR HGB CONC 34.3 % (32.0-36.0); MONO % 8.3 % (0.0-8.0); NEUT % 81.5 % (16.0-70.0); PLATELET COUNT 38 TH/MM3 (150-450); RED BLOOD COUNT 2.15 MIL/MM3 (4.50-5.90); RED CELL DISTRIBUTION WIDTH 16.2 % (11.6-17.2); WHITE BLOOD COUNT 17.1 TH/MM3 (4.0-11.0)
[2015-12-22 06:50] LABS: HEMO FLAGS AUTO DIFF
[2015-12-22 06:52] LABS: HEMATOCRIT 17.6 % (39.0-51.0)
[2015-12-22 06:57] LABS: APTT (PATIENT) 31.2 SEC (24.3-30.1); INTERNATIONAL NORMALIZED RATIO 1.1 RATIO; PROTHROMBIN TIME - PATIENT 12.7 SEC (9.8-11.6)
[2015-12-22 07:19] LABS: ALKALINE PHOSPHATASE 42 U/L (45-117); ALT (GPT) 10 U/L (12-78); ANION GAP 10 MEQ/L (5-15); AST (GOT) 13 U/L (15-37); BICARBONATE 21.4 MEQ/L (21.0-32.0); BLOOD UREA NITROGEN 69 MG/DL (7-18); CHLORIDE 119 MEQ/L (98-107); GLOMERULAR FILTRATION RATE 57 ML/MIN (>89); POTASSIUM 3.7 MEQ/L (3.5-5.1); SODIUM (NA) 150 MEQ/L (136-145); TOTAL BILIRUBIN ADULT 0.7 MG/DL (0.2-1.0)
[2015-12-22 07:25] LABS: BLOOD GAS BASE EXCESS -4.6 mmol/L (-2-2); BLOOD GAS CARBOXYHEMOGLOBIN 1.5 % (0-4); BLOOD GAS HCO3 19 mmol/L (22-26); BLOOD GAS METHEMOGLOBIN 0.7 % (0-2); BLOOD GAS O2 HGB SATURATION 97 % (90-100); BLOOD GAS OXYGEN CONTENT 8.8 Vol % (12.0-20.0); BLOOD GAS PCO2 27 mmHg (38-42); BLOOD GAS PO2 147 mmHg (61-120); BLOOD GAS TOTAL HGB 6.2 G/DL (12.0-16.0); TEMP CORR TO 98.6
[2015-12-22 07:27] LABS: CRITICAL VALUE YES; DRAW SITE ART LINE; FIO2 40 %; OXYGEN DEVICE VENTILATOR; STAT YES; VENT SETTINGS A/C 24/500/PEEP10
[2015-12-22 07:30] LABS: ACANTHOCYTES 1+ (NORMAL); BANDS 7 % (0-6); CORRECTED NUCLEATED RBC 24 /100 WBC (0-0); METAMYELOCYTES 3 % (0-1); MYELOCYTES 10 % (0-0); NEUTROPHIL # MANUAL DIFF 14.7 TH/MM3 (1.8-7.7); OVALOCYTES 1+ (NORMAL); POLYS (SEG NEUTROPHILS) 64 % (16-70); PROMYELOCYTES 2 % (0-0); WBC DIFF SAMPLE 100
[2015-12-22 07:31] LABS: PLATELET ESTIMATE SMEAR LOW (NORMAL); PLATELET MORPHOLOGY NORMAL (NORMAL); SCAN/DIFF FINAL DIFF MANUAL
[2015-12-22] MEDS: CHLORHEXIDINE 0.12% (ORAL KIT) 15 ML CUP MT SCH ×2 (08:00→20:03)
[2015-12-22] MEDS ORDERED: CALCIUM CHLORIDE 10% SOLN 1 GRAM/10 ML SYR IV ONE (08:15)
[2015-12-22] MEDS: POVIDONE IODINE 10% OINT 30 GM TUBE TOPICAL SCH (08:29)
[2015-12-22 08:48] LABS: BLOOD GAS BASE EXCESS -4.3 mmol/L (-2-2); BLOOD GAS CARBOXYHEMOGLOBIN 2.2 % (0-4); BLOOD GAS HCO3 19 mmol/L (22-26); BLOOD GAS METHEMOGLOBIN 0.9 % (0-2); BLOOD GAS O2 HGB SATURATION 97 % (90-100); BLOOD GAS PCO2 25 mmHg (38-42); BLOOD GAS PO2 187 mmHg (61-120); CRITICAL VALUE NO; FIO2 40 %; OXYGEN DEVICE VENTILATOR; TEMP CORR TO 98.6; VENT SETTINGS A/C 20/500/10PEEP
[2015-12-22 08:49] LABS: DRAW SITE ART LINE; STAT YES
[2015-12-22 09:00] LABS: APTT (PATIENT) 30.3 SEC (24.3-30.1); INTERNATIONAL NORMALIZED RATIO 1.2 RATIO
[2015-12-22] MEDS: RESP: ALBUTEROL 2.5 MG/IPRATROPIUM 0.5 MG NEB (PRN) NEB (09:28)
--- NOTE | 2015-12-22 09:54 | HHI.CCPN ---
Subjective Remarks/Hospital Course 55-year-old male brought by EMS with altered mental status. He has been confused for 2 days but this morning has been the worst. He has history of chronic opiate medications including methadone and morphine that he takes for pain management and hence they gave him Narcan IV which brought the GCS up to 13. The blood glucose was 74. He has open wounds from his right upper and bilateral lower extremities. He has history of hepatitis C. Last week he was pealing and eating shrimps. Bedside blood sugar was 76 in the ER. He was tachycardic in 1 teens and was intubated in the ED for airway protection. Admitted to ICU with sepsis due to Staph Aureus hand infection and E. Coli bacteriemia. 12/05 Patient remains sedated with Fentanyl and intubated. On Levophed 3 mics, Vasopressin 0.03 mics and Bicarb drip. T:99.8 TF placed on hold OGT to LIWS last night - gastric drainage 525ml overnight. 12/06 Patient is sedated with Fentanyl and intubated, On Levophed 3 mics, off vasopressin. Gastric output 400ml in 24 hrs. KUB abdomen yesterday mildly distended colon otherwise non specific KUB. 12/07 Patient is off sedation remains intubated tolerated CPAP for most day yesterday. Afebrile. on no drips, tolerating tube feeds. 12/08 Patient went to OR yesterday for debridement and irrigation of right forearm and wound VAC placement. Given 2U PRBC and 2u PLT yesterday and currently receiving 1of 2 u additional PRBC. Hgb 7.7, PLT 43 this morning. Patient also started on pressors now on Levophed 10 mics. Vasopressin 0.04 mics. On no sedation. 12/09 Patient remains intubated off pressors, Afebrile. Tolerating tube feeds. Afebrile. 12/10 Patient is sedated with Fentanyl and intubated. Awake and follows commands off sedation. Afebrile. 12/11 Patient had ?SVT overnight given Lopressor 2.5mg IV x1, Remains intubated and sedated with Fentanyl. Afebrile. Tolerating TF. 12/12 Patient spoked fever last night with T: 101.5, sedated with Fentanyl and intubated. 12/13 Patient had an episode of desaturation overnight required increase FIO2/ PEE now on ACV with RR 14, TV 550, PEEP: 12, FIO2 60% with sats 100% CT chest performed overnight showed b/l consolidation and small pleural effusion. Had T: 100.0 last night. 12/14 Tolerating PS 15/CPAP 10 FiO2 40% with rSBI 38, weaning. . Awake and alert , following commands. Hypotensive overnight and levophed restarted up to 12 mcg/ min. Nurse has been weaning throughout the day. Suspected adrenal insufficiency as he was on prednisone as outpatient for gout and has not been on stress dose steroids. Given decadron. 12/15 Transfused 1 unit PRBC for Hgb 7.0 yesterday, 1 unit PRBC for Hgb 6.6 today and now Hgb 8.3. Does not clinically have e/o active GI bleeding and wound vac output nonbloody. Stool 1500 output, C diff negative. No abdominal pain. Remains Awake and alert, remained on CPAP 10/5 last night and is now tolerating CPAP 5/5. 12/16: Extubated yesterday tolerating well. Breathing comfortably. Able to follow commands. UO 1.8 L in 24 hours. Na slightly increased to 153. 12/17: Significantly worse this AM. WBC up to 28 from 16. Hgb 5.2 from 7.9. tachycardic. pale this AM. states he feels tired. Continues on BiPAP. Plan for debridement of his arms today. LIJ CVL does not have any signs of overt infection. 12/18: Blood cell count continues to rise today to 30 from 28. Required 1 unit of blood for hemoglobin of 6.6 which improved to 7.7 this morning. However, patient remains tachycardic in the 120s and significantly pale. CT abdomen and pelvis ordered and pending. Tachypneic with respiratory rate in the 30s. Only small amount of dark tarry stool yesterday with approximately 300 cc of stool output. C. difficile toxin negative 3. After discussion with infectious disease, restart vancomycin, cefepime, Flagyl, micafungin. Rey cultures are pending. Per discussion with GI, will not scope as endoscopy is high risk given his tenuous respiratory status this point. Slightly worse hypernatremia as well as worsening acute kidney injury this morning. 12/19: POD 1 s/p ex-lap, washout for perforated ascending colon with extended right hemicolectomy, primary ileocolic anastamosis, open abdomen, septic shock, acute hypoxic and hypercarbic respiratory failure. Significantly critically ill overnight: required 6L ivf resuscitation, 1 unit prbc, norepinephrine, vasopressin, stress dose hydrocortisone. This morning, remains on high-dose vasopressors. still has large volume ivf requirement. Significant SIRS response. Vent requirements increasing with all this volume resuscitation, PEEP up to 10. He remains critically ill, and although I do believe we have surgical source control, I anticipate he will continue to clinically decline before he starts to make improvements. 12/20: Off pressors. follows commands on sedation holiday. +11L over last 3 days during acute illness, +22L since admission. We are going to have to get some of this volume back before we are able to close him given his severe anasarca. Subjective: 12/21: Taken back to the OR yesterday afternoon for washout and completion colectomy. Postoperatively was significantly under resuscitated as well as had ongoing active oozing. Patient was coagulopathy. The patient was in distributive and hemorrhagic shock. The patient was given multiple units of blood products overnight. Patient was thrombocytopenic, hypofibrinogenemic, coagulopathic. Given significant volume of blood product resuscitation: 24h blood products: 13 prbc 8 ffp 2 plt 1 10-pack cryo This morning continues to have significant amount of bright red output out of his BEV and wound VAC, approximately 500 cc an hour out of his wound VAC, and approximately 75 an mils every 10 minutes out of a BEV. I discussed with surgery and we will correct his Coreg colopathy and plan to go back to the OR for exploration early this afternoon. Objective Vital Signs Date Time Temp Pulse Resp B/P Pulse Ox O2 Delivery O2 Flow Rate FiO2 12/22/15 09:22 100 40 12/22/15 08:00 107/67 12/22/15 08:00 97.5 111 20 12/19/15 22:00 Mechanical Ventilator Nasal Cannula 12/19/15 07:18 2.00 Intake and Output 12/21/15 12/21/15 12/22/15 08:00 16:00 00:00 Intake Total 2134 ml 2064 ml 3988 ml Output Total 1050 ml 1900 ml 2850 ml Balance 1084 ml 164 ml 1138 ml Result Diagram: 12/22/15 0630 12/22/15 0630 Other Results Laboratory Tests Test 12/21/15 12/21/15 12/22/15 12/22/15 16:15 19:28 02:18 07:05 Blood Gas Puncture Site DRAWN IN OR ART LINE ART LINE ART LINE Blood Gas Patient Temperature 98.6 98.6 98.6 98.6 Blood Gas HCO3 17 mmol/L 15 mmol/L 14 mmol/L 19 mmol/L (22-26) (22-26) (22-26) (22-26) Blood Gas Base Excess -9.2 mmol/L -11.2 mmol/L -10.7 mmol/L -4.6 mmol/L (-2-2) (-2-2) (-2-2) (-2-2) Blood Gas Oxygen Saturation 97 % (90-100) 96 % (90-100) 96 % (90-100) 97 % (90- 100) Arterial Blood pH 7.25 7.23 7.30 7.46 (7.380-7.420) (7.380-7.420) (7.380-7.420) (7.380-7.420) Arterial Blood Partial 39 mmHg (38-42) 37 mmHg (38-42) 30 mmHg (38-42) 27 mmHg ( 38-42) Pressure CO2 Arterial Blood Partial 221 mmHg 137 mmHg 162 mmHg 147 mmHg Pressure O2 (61-120) (61-120) (61-120) (61-120) Arterial Blood Oxygen Content 13.0 Vol % 9.8 Vol % 6.9 Vol % 8.8 Vol % (12.0-20.0) (12.0-20.0) (12.0-20.0) (12.0-20.0) Arterial Blood 1.0 % (0-4) 1.8 % (0-4) 2.4 % (0-4) 1.5 % (0-4) Carboxyhemoglobin Arterial Blood Methemoglobin 1.2 % (0-2) 1.1 % (0-2) 1.0 % (0-2) 0.7 % (0-2) Blood Gas Hemoglobin 9.2 G/DL 7.1 G/DL 4.8 G/DL 6.2 G/DL (12.0-16.0) (12.0-16.0) (12.0-16.0) (12.0-16.0) Oxygen Delivery Device OR VENTILATOR VENTILATOR VENTILATOR Blood Gas Ventilator Setting OR AC/24/500/PEEP10 A A/C 24/500/PEEP10 Blood Gas Inspired Oxygen 60 % 45 % 40 % 40 % Test 12/22/15 08:31 Blood Gas Puncture Site ART LINE Blood Gas Patient Temperature 98.6 Blood Gas HCO3 19 mmol/L (22-26) Blood Gas Base Excess -4.3 mmol/L (-2-2) Blood Gas Oxygen Saturation 97 % (90-100) Arterial Blood pH 7.49 (7.380-7.420) Arterial Blood Partial 25 mmHg (38-42) Pressure CO2 Arterial Blood Partial 187 mmHg Pressure O2 (61-120) Arterial Blood Oxygen Content 10.0 Vol % (12.0-20.0) Arterial Blood 2.2 % (0-4) Carboxyhemoglobin Arterial Blood Methemoglobin 0.9 % (0-2) Blood Gas Hemoglobin 7.0 G/DL (12.0-16.0) Oxygen Delivery Device VENTILATOR Blood Gas Ventilator Setting A/C 20/500/10PEEP Blood Gas Inspired Oxygen 40 % Imaging Last Impressions Chest X-Ray 12/17/15 0600 Signed Impressions: Service Date/Time: Thursday, December 17, 2015 03:25 - CONCLUSION: Persistent left lower lobe consolidation. Osmar Alegria MD Chest CT 12/14/15 0000 Signed Impressions: Service Date/Time: Monday, December 14, 2015 06:12 - CONCLUSION: 1. Cardiomegaly with bilateral consolidation, likely CHF. Pneumonia cannot be excluded. 2. Small right pleural effusion. Wojciech Lockhart MD Abdomen X-Ray 12/06/15 0000 Signed Impressions: Service Date/Time: November 09:53 - CONCLUSION: Nonspecific KUB. Air is seen within a mildly distended colon but contrast is clearly seen in the rectum. Arnaldo Reyes MD Abdomen/Pelvis CT 12/04/15 0000 Signed Impressions: Service Date/Time: Friday, December 04, 2015 16:24 - CONCLUSION: 1. Mildly distended small bowel in the mid and lower abdomen. Contrast is clearly seen extending into the distal small bowel and ascending colon so a complete obstruction is not seen. A transition point is not seen. This pattern likely represents an ileus versus a partial obstruction. 2. Multiple nonobstructing renal stones. 3. Abnormal appearance of the spleen which appears to represent a splenule. It could be correlated if the patient has had either primary splenic removal or splenic injury and this is what is either left of the spleen or a developing splenule. This is likely of no significance. 4. Mild ascites. 5. Increased density within the gallbladder representing either tumefactive sludge or noncalcified stones. 6. Mild bilateral pleural effusions with prominent areas of lower lobe atelectasis or consolidation at the bases bilaterally. 7. Subacute to chronic bilateral rib fractures and multiple compression fractures in the lower thoracic and lumbar spine as described above. The patient does have a prior CT examination from 08/26/2014. All the compression deformities described above are new when compared to that scan. Arnaldo Reyes MD Head CT 12/02/15 1013 Signed Impressions: Service Date/Time: Wednesday, December 02, 2015 11:00 - CONCLUSION: 1. No intracranial abnormality is seen. 2. Air-fluid level in the right maxillary sinus. Arnaldo Reyes MD Objective Remarks GENERAL: middle-aged male, lying in bed, intubated, sedated, in distress. critically ill. HEENT: anisocoric pupils L 6mm, R 5mm, reactive. mucous membranes moist. NECK: trachea midline. obese neck. difficult to assess JVD. left IJ triple lumen catheter in place, site is clean and dry without signs of erythema or drainage. RESPIRATORY: Intubated. Breath sounds equal bilaterally. coarse rales b/l. CARDIOVASCULAR:Tachycardic, regular without murmurs. GASTROINTESTINAL: Abdomen is left open with midline wound vac in place draining sanguinous output. BEV drain in left upper quadrant with sanguinous output. Rectal tube in place with melanic appearing stool. MUSCULOSKELETAL: Generalized anasarca-worse today than yesterday. Multiple open wounds in the lower extremity. RUE - with wound vac in place. L upper extremity dressing in place. NEURO: RASS - 3. Not following commands today. 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 He has made improvements in his shock state. He is now severely volume overloaded given the large volume resuscitation he required for his shock. He also continues to have an DEIRDRE. Again, we are back in probably a combination of hypovolemic and septic shock. I think her biggest problem is that we saw ongoing losses from abdominal hemorrhage. It is unclear to me whether or not this is just oozing from coagulopathy, or surgical bleeding. I do think it is reasonable to correct his coagulopathy, and if we are still bleeding from the abdomen then go back at that point for exploration. His prognosis remains guarded at best. I have updated the family. Neuro: Acute encephalopathy secondary to sepsis Acute pain secondary to multiple soft tissue infections Acute post-surgical pain Chronic pain -- continue tylenol 1gm IV q8h scheduled for pain -- holding oral opiates. -- remains off home methadone given renal function -- dilaudid 0.5-2mg iv q4h prn for breakthrough pain. -- fentanyl infusion for goal RASS -2. -- continue ketamine infusion 0.5mg/kg/hr for another 24h. Respiratory Acute respiratory failure-extubated 12/16/15, reintubated for surgery 12/18 Acute hypoxic and hypercarbic respiratory failure Acute healthcare associated pneumonia- resolved NIGEL on home CPAP --Extubated 12/15, reintubated for emergent ex-lap 12/18 --ACV 550/18/10/45%. -- Vent bundle -- Head of bed at 30 degrees -- Nebs q6h and q2h prn. -- does not meet SBT criteria today 2/2 acute shock --CT chest 12/13 b/l consolidation with small right pleural effusion CV Septic Shock- resolving. Hemorrhagic shock --Norepinephrine for map goal > 65 mmHg --Cortisol level was 14 on 12/14 -- stress dose steroids, hydrocortisone 50 q6h, we will begin weaning this once his abdominal incision is closed. --Echo 12/07 EF 65-70%, grade I diastolic dysfunction -- continue to trend CVP. Renal: -DEIRDRE Hypernatremia- improving. Acute intravascular and total body volume overload --Cr stable today . He will continue to have acute kidney injury throughout this acute shock state -- continue Sandoval. -- likely he will continue to have ongoing renal insufficiency. He may need renal replacement at some point during this acute illness, but at present, he does not need this. Hold off on forced diuresis. We are actively giving him blood products FEN/GI Acute protein calorie malnutrition- severe Hypokalemia perforated right colon with colitis Total body volume overload Intravascular hypervolemia Distributive Shock Anion Gap metabolic acidosis Open abdomen s/p ex-lap, extended right hemicolectomy with primary ileocolic anastamosis, washout, open abdomen (12/18) -- Strict NPO -- (TF recs per Nutrition Glucerna 1.5 at 60cc/hr) -- GI consulted for assistance in prior GI bleeding: Now signed off -- continue TPN -- ICU electrolyte protocol -- Daily BMP -- IV PPI BID -- per surgery, going back to OR today. Heme: Acute Anemia secondary to acute blood loss Thrombocytopenia Hypofibrinogenemia secondary to consumption and acute blood loss Coagulopathy secondary to consumption and acute blood loss --monitor CBC --Hep PLT ab negative on 12/03 -- d/c ferrous sulfate. -- Transfusion Triggers: Hgb < 7 INR > 2 Fibrinogen < 150 Plt < 100K with active bleeding. ID - Septic Shock - Necrotizing Fascitis - MSSA on wound culture 12/07. - Ecoli bacteremia 12/01 - MSSA bacteremia 12/05. Cleared on f/u blood culture 12/07, 12/12. Leukocytosis Sepsis of Intra-abdominal origin. C. difficile toxic megacolon -- Debridement 12/01 p.m at bedside by Dr Pedro and Dr. Hartmann -- R hand, forearm and olecrenon bursa I and D and Wound vac 12/07 Dr Chavez. Vancomycin, cefepime, Flagyl, micafungin started 12/17. --12/17 blood cultures: NGTD 12/17 central line culture: NGTD 12/17 urine cultures: NGTD 12/17 sputum cultures: NGTD C. difficile toxin 12/17: Negative (3rd negative toxin screen) -- ID consulted (Dr. Becerra) Endocrine: Hyperglycemia of Critical Illness Diabetes Presumed acute adrenal insufficiency Continue insulin drip with every hour Accu-Cheks --Insulin in TPN 30 units per day -- continue hydrocortisone 50mg iv q6h. we will consider tapering this once his abdomen is closed. Prophylaxis: GI Prophylaxis: -- Protonix 40mg IV BID. DVT Prophylaxis: -- SCDs --Continue to hold pharmacologic DVT prophylaxis in the setting of acute hemorrhage. Lines: --L IJ CVL placed 12/13. The patient has significantly poor IV access given his multiple wounds. After discussion with the infectious disease team, we are keeping this line in place because the site looks good and does not appear to be infected. We do have cultures that were drawn from the line pending. If these cultures turn positive, or he has signs of bacteremia, we will replace this line. -- Sandoval -- left axillary arterial line 12/18. Dispo: -- remain in the [facility]. He is severely critically ill. This patient remains critically ill with one or more organ systems which are or may become a threat to life. I have spent in excess of 81 minutes discontinuously in the care and management of this patient. This time is exclusive of procedures, and includes, but is not limited to, evaluation of the patient, review of the medical record, discussions with family, consultants, nursing staff, or respiratory therapy, and documentation in the medical record. Problem Qualifiers (1) Respiratory failure: Qualified Code: J96.00 - Acute respiratory failure, unspecified whether with hypoxia or hypercapnia (2) Altered mental status: Qualified Code: R41.0 - Delirium (3) Sepsis: Qualified Code: A41.9 - Sepsis, due to unspecified organism Jeyson Fernández MD Dec 22, 2015 09:54
[2015-12-22 10:14] LABS: AUTOMATED NEUTROPHIL # 13.9 TH/MM3 (1.8-7.7); BASOPHIL # 0.1 TH/MM3 (0-0.2); BASOPHIL % 0.7 % (0.0-2.0); HEMATOCRIT 18.3 % (39.0-51.0); LYMPH % 11.6 % (9.0-44.0); LYMPHOCYTE # 2.1 TH/MM3 (1.0-4.8); MEAN CELL VOLUME 86.1 FL (80.0-100.0); MEAN CORPUSCULAR HEMOGLOBIN 29.4 PG (27.0-34.0); MEAN CORPUSCULAR HGB CONC 34.2 % (32.0-36.0); MONO % 11.1 % (0.0-8.0); NEUT % 76.6 % (16.0-70.0); PLATELET COUNT 141 TH/MM3 (150-450); RED BLOOD COUNT 2.13 MIL/MM3 (4.50-5.90); RED CELL DISTRIBUTION WIDTH 14.7 % (11.6-17.2); WHITE BLOOD COUNT 18.1 TH/MM3 (4.0-11.0)
[2015-12-22 10:19] LABS: HEMO FLAGS AUTO DIFF
[2015-12-22 11:11] LABS: BANDS 9 % (0-6); CORRECTED NUCLEATED RBC 52 /100 WBC (0-0); METAMYELOCYTES 2 % (0-1); MYELOCYTES 1 % (0-0); NEUTROPHIL # MANUAL DIFF 13.8 TH/MM3 (1.8-7.7); PLATELET ESTIMATE SMEAR NORMAL (NORMAL); PLATELET MORPHOLOGY NORMAL (NORMAL); POLYS (SEG NEUTROPHILS) 64 % (16-70); SCAN/DIFF FINAL DIFF MANUAL; WBC DIFF SAMPLE 100
[2015-12-22 11:46] LABS: BLOOD GAS BASE EXCESS -4.6 mmol/L (-2-2); BLOOD GAS CARBOXYHEMOGLOBIN 1.9 % (0-4); BLOOD GAS HCO3 18 mmol/L (22-26); BLOOD GAS METHEMOGLOBIN 0.8 % (0-2); BLOOD GAS O2 HGB SATURATION 96 % (90-100); BLOOD GAS OXYGEN CONTENT 11.7 Vol % (12.0-20.0); BLOOD GAS PCO2 26 mmHg (38-42); BLOOD GAS PO2 103 mmHg (61-120); BLOOD GAS TOTAL HGB 8.6 G/DL (12.0-16.0); CRITICAL VALUE NO; OXYGEN DEVICE VENTILATOR; TEMP CORR TO 98.6
[2015-12-22 11:47] LABS: DRAW SITE ART LINE; FIO2 40 %; STAT YES; VENT SETTINGS /10PEEP
[2015-12-22] MEDS ORDERED: NORMOSOL R INJ 1,000 ML IV ONE (12:00)
[2015-12-22] MEDS: MICAFUNGIN INJ 150 MG in SODIUM CHLORIDE 0.9% INJ 100 ML IV SCH (12:41)
--- NOTE | 2015-12-22 14:40 | HHI.IDPN ---
Subjective Subjective Remarks 55 y/o male admitted with lethargy and right hand pain. 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 BCX on admission with E.coli. Blood and wound cultures subsequently in initial phase of illness with MSSA. Patient was followed by hand surgery and underwent debridement eventually. Clinically as reported to me by was doing well. Patient was extubated and deteriorated day after with abdominal tenderness and distention. Patient had a CT Abd/pelvis which revealed pneumoperitoneum with ascites. Patient underwent colonic resection. Overnight had deterioration concern for ongoing intra-abdominal bleed. As d/w SVR and other hemodynamic parameters s/o volume loss and not worsening sepsis. Intra op path was reported tentatively as s/o ? cdiff with necrosis of margins noted. Wound vac intra abdominal area restarted. UO marginal. on vent Periods of hypothermia. Antibiotics cefepime IV, IV flagyl, micafungin IV Lines RIJ and other Line sites with no e/o infection Past Medical History RA HCV sp splenectomy Allergies: Coded Allergies: Compazine (Verified Allergy, Severe, VOMITING, RASH, 08/26/14) SLURRED SPEECH, MIGRAINES Demerol (Verified Allergy, Severe, VOMITING, 08/26/14) Levaquin (Verified Allergy, Severe, 08/26/14) Penicillin (Verified Allergy, Severe, Rash, 08/26/14) Phenergan (Verified Allergy, Severe, VOMITING, 08/26/14) Uncoded Allergies: ANTI-CONVULSIVES (Allergy, Severe, MIGRAINES, SLURRED SPEECH,, 01/23/14) Objective . Vital Signs Date Time Temp Pulse Resp B/P Pulse Ox O2 Delivery O2 Flow Rate FiO2 12/22/15 14:00 89/58 12/22/15 14:00 108 12/22/15 12:00 98.4 106 20 97/64 99 12/22/15 12:00 40 12/22/15 12:00 97/64 12/22/15 12:00 106 12/22/15 11:32 99 40 12/22/15 10:00 96/58 12/22/15 10:00 110 12/22/15 09:22 100 40 12/22/15 08:00 107/67 12/22/15 08:00 40 12/22/15 08:00 97.5 111 20 107/67 100 11/5/16 08:00 111 12/22/15 06:00 90/56 12/22/15 06:00 105 12/22/15 05:20 96.4 100 24 128/86 100 12/22/15 05:04 95.7 100 24 127/78 100 12/22/15 04:45 95.7 100 24 130/87 100 12/22/15 04:34 100 40 12/22/15 04:15 95.7 100 24 140/82 100 12/22/15 04:00 45 12/22/15 04:00 95 12/22/15 04:00 140/73 12/22/15 04:00 95.7 96 24 138/80 100 12/22/15 03:50 95.7 100 24 138/80 100 12/22/15 03:05 95.0 100 24 106/68 100 12/22/15 03:05 95.0 100 24 106/68 100 12/22/15 03:03 95.0 100 24 106/68 100 12/22/15 02:50 100 40 12/22/15 02:35 95.0 100 24 104/62 100 12/22/15 02:18 95.7 108 24 100/54 100 12/22/15 02:00 100/67 12/22/15 02:00 88 12/22/15 01:21 100 40 12/22/15 00:00 45 12/22/15 00:00 92.5 84 24 97/65 100 12/22/15 00:00 97/65 12/22/15 00:00 84 12/21/15 22:00 96/66 12/21/15 22:00 92 12/21/15 21:36 100 45 12/21/15 21:30 97.5 100 24 98/66 100 12/21/15 20:10 97.5 112 24 102/66 100 12/21/15 20:00 45 12/21/15 20:00 102/66 12/21/15 20:00 94.5 112 24 102/66 100 12/21/15 20:00 112 12/21/15 20:00 97.5 112 24 102/66 100 12/21/15 19:30 97.5 112 24 82/50 100 12/21/15 15:30 100 100 12/21/15 12/21/15 12/22/15 15:00 23:00 07:00 Intake Total 2064 ml 3988 ml 5816 ml Output Total 1900 ml 2850 ml 2850 ml Balance 164 ml 1138 ml 2966 ml IV Total 1128 ml 1877 ml 2353 ml TPN/PPN 621 ml 548 ml 266 ml Albumin 500 ml 500 ml Packed Cells 315 ml 500 ml 1000 ml FFP 563 ml 1267 ml Platelets 207 ml Cryoprecipitate 223 ml Output Urine Total 900 ml 900 ml 350 ml Stool Total 0 ml 0 ml 0 ml Drainage Total 1000 ml 1950 ml 2500 ml . Laboratory Tests Test 12/21/15 12/21/15 12/22/15 12/22/15 04:30 19:45 01:00 04:55 White Blood Count 34.7 TH/MM3 36.4 TH/MM3 28.1 TH/MM3 26.6 TH/MM3 Red Blood Count 2.43 MIL/MM3 2.44 MIL/MM3 1.75 MIL/MM3 3.00 MIL/MM3 Hemoglobin 7.1 GM/DL 7.3 GM/DL 4.9 GM/DL 8.5 GM/DL Hematocrit 21.6 % 21.8 % 14.8 % 24.9 % Mean Corpuscular Volume 88.6 FL 89.5 FL 84.6 FL 82.8 FL Mean Corpuscular Hemoglobin 29.1 PG 29.9 PG 28.0 PG 28.3 PG Mean Corpuscular Hemoglobin 32.8 % 33.4 % 33.1 % 34.2 % Concent Red Cell Distribution Width 16.3 % 16.7 % 17.6 % 16.0 % Platelet Count 95 TH/MM3 69 TH/MM3 33 TH/MM3 47 TH/MM3 Mean Platelet Volume 11.2 FL 10.7 FL 9.8 FL 8.0 FL Test 12/22/15 12/22/15 06:30 09:20 White Blood Count 17.1 TH/MM3 18.1 TH/MM3 Red Blood Count 2.15 MIL/MM3 2.13 MIL/MM3 Hemoglobin 6.1 GM/DL 6.3 GM/DL Hematocrit 17.6 % 18.3 % Mean Corpuscular Volume 82.1 FL 86.1 FL Mean Corpuscular Hemoglobin 28.1 PG 29.4 PG Mean Corpuscular Hemoglobin 34.3 % 34.2 % Concent Red Cell Distribution Width 16.2 % 14.7 % Platelet Count 38 TH/MM3 141 TH/MM3 Mean Platelet Volume 8.3 FL 8.3 FL Neutrophils (%) (Auto) 81.5 % 76.6 % Lymphocytes (%) (Auto) 9.7 % 11.6 % Monocytes (%) (Auto) 8.3 % 11.1 % Eosinophils (%) (Auto) 0.0 % 0.0 % Basophils (%) (Auto) 0.5 % 0.7 % Neutrophils # (Auto) 13.9 TH/MM3 13.9 TH/MM3 Lymphocytes # (Auto) 1.7 TH/MM3 2.1 TH/MM3 Monocytes # (Auto) 1.4 TH/MM3 2.0 TH/MM3 Eosinophils # (Auto) 0.0 TH/MM3 0.0 TH/MM3 Basophils # (Auto) 0.1 TH/MM3 0.1 TH/MM3 CBC Comment AUTO DIFF AUTO DIFF Differential Total Cells 100 100 Counted Neutrophils % (Manual) 64 % 64 % Band Neutrophils % 7 % 9 % Lymphocytes % 7 % 18 % Monocytes % 7 % 6 % Neutrophils # (Manual) 14.7 TH/MM3 13.8 TH/MM3 Metamyelocytes 3 % 2 % Myelocytes 10 % 1 % Promyelocytes 2 % Nucleated Red Blood Cells 24 /100 WBC 52 /100 WBC Differential Comment FINAL DIFF FINAL DIFF MANUAL MANUAL Platelet Estimate LOW NORMAL Platelet Morphology Comment NORMAL NORMAL Ovalocytes 1+ Acanthocytes 1+ Laboratory Tests Test 12/21/15 12/21/15 12/21/15 12/22/15 04:30 19:45 21:38 02:25 Sodium Level 146 MEQ/L 147 MEQ/L 151 MEQ/L Potassium Level 3.8 MEQ/L 3.1 MEQ/L 2.9 MEQ/L 4.4 MEQ/L Chloride Level 117 MEQ/L 118 MEQ/L 121 MEQ/L Carbon Dioxide Level 20.2 MEQ/L 20.4 MEQ/L 18.8 MEQ/L Anion Gap 9 MEQ/L 9 MEQ/L 11 MEQ/L Blood Urea Nitrogen 89 MG/DL 81 MG/DL 75 MG/DL Creatinine 1.68 MG/DL 1.39 MG/DL 1.30 MG/DL Estimat Glomerular Filtration 43 ML/MIN 53 ML/MIN 58 ML/MIN Rate Random Glucose 271 MG/DL 210 MG/DL 121 MG/DL Calcium Level 7.2 MG/DL 6.8 MG/DL 7.5 MG/DL Protein Corrected Calcium 8.9 MG/DL 9.7 MG/DL Phosphorus Level 4.6 MG/DL Magnesium Level 1.9 MG/DL Total Protein 4.1 GM/DL 2.4 GM/DL 2.8 GM/DL Total Bilirubin 0.6 MG/DL Direct Bilirubin 0.3 MG/DL Indirect Bilirubin 0.3 MG/DL Aspartate Amino Transf 10 U/L (AST/SGOT) Alanine Aminotransferase LESS THAN 6 U/L (ALT/SGPT) Alkaline Phosphatase 34 U/L Albumin 1.7 GM/DL Amylase Level 35 U/L Lipase 303 U/L Test 12/22/15 06:30 Sodium Level 150 MEQ/L Potassium Level 3.7 MEQ/L Chloride Level 119 MEQ/L Carbon Dioxide Level 21.4 MEQ/L Anion Gap 10 MEQ/L Blood Urea Nitrogen 69 MG/DL Creatinine 1.31 MG/DL Estimat Glomerular Filtration 57 ML/MIN Rate Random Glucose 103 MG/DL Calcium Level 9.3 MG/DL Total Bilirubin 0.7 MG/DL Aspartate Amino Transf 13 U/L (AST/SGOT) Alanine Aminotransferase 10 U/L (ALT/SGPT) Alkaline Phosphatase 42 U/L Total Protein 3.6 GM/DL Albumin 1.9 GM/DL Microbiology Date/Time Procedure Status Source Growth 12/21/15 15:07 Gram Stain - Final Resulted Sputum Endotracheal 12/21/15 15:07 Sputum Culture - Preliminary Resulted Sputum Endotracheal NO GROWTH IN 24 HOURS. Imaging Last Impressions Chest X-Ray 12/19/15 0000 Signed Impressions: Service Date/Time: Saturday, December 19, 2015 18:37 - CONCLUSION: Endotracheal tube tip terminates 1 cm above the gregoria, with decreased lung volumes noted bilaterally. Arcadio Dickerson MD Abdomen/Pelvis CT 12/19/15 0000 Signed Impressions: Service Date/Time: Saturday, December 19, 2015 10:57 - CONCLUSION: 1. Adjacent volume pneumoperitoneum is observed consistent with perforation of a hollow viscus. This is presumably colonic in origin due to the diffuse inflammatory process involving the colon. I do not clearly identify the source of the pneumoperitoneum however. There is mild dilatation of the small bowel likely an ileus in nature. A significant volume of ascitic fluid is noted. 2. Bibasilar atelectasis and bilateral pleural effusions. 3. Small pericardial effusion. 4. Small bilateral nonobstructing renal calculi. 5. I spoke with Dr. Sanchez concerning the findings. Osmar Chavez Jr., MD Abdomen X-Ray 12/18/15 0000 Signed Impressions: Service Date/Time: Friday, December 18, 2015 16:05 - CONCLUSION: Feeding tube tip is at the gastric antrum. Arnaldo Elias MD Chest CT 12/14/15 0000 Signed Impressions: Service Date/Time: Monday, December 14, 2015 06:12 - CONCLUSION: 1. Cardiomegaly with bilateral consolidation, likely CHF. Pneumonia cannot be excluded. 2. Small right pleural effusion. Wojciech Lockhart MD Head CT 12/02/15 1013 Signed Impressions: Service Date/Time: Wednesday, December 02, 2015 11:00 - CONCLUSION: 1. No intracranial abnormality is seen. 2. Air-fluid level in the right maxillary sinus. Arnaldo Reyes MD Physical Exam GENERAL: On vent , sedated appears toxic SKIN: + mild jaundice. Anasarca HEENT: no icterus, NO nasal drainage orally intubated NECK: Trachea midline. Supple, nontender. CARDIOVASCULAR: systolic murmur in base of heart RESPIRATORY/CHEST: + rhonchi on auscultation. Breath sounds equal bilaterally. GASTROINTESTINAL: Abdomen open with VAC in place x 2 and serosang dc GENITOURINARY: Sandoval catheter in place with clear light yellow urine scrotum is mildly edematous. MUSCULOSKELETAL: Extremities no cyanosis, Edema significant 3+ NEUROLOGICAL: sedated LINES: NO evidence of infection Assessment & Plan Remarks Sepsis related to Cdiff and Intra abdominal peritonitis. Cdiff Colitis per intra op path. Bowel perforation related Abdominal peritonitis. Of note patient has been on steroids prior to and since 12/19/15 which is risk factor for perforation. RUE severe nec fasc 2/2 MSSA - skin grafting was planned, but cancelled - S/P I and D x 3 - RUE infx clinically resolved MSSA bacteremia 2/2 RUE infx - resolved per d/w . E.coli bacteremia on presentation -source is likely gut Immunosuppressed on steroids, s/p splenectomy. PCN allergy, but no probs with Keflex per report. ARF/ DEIRDRE/ATN 2/2 sepsis -stable Bowel necrosis - suspected C.diff per path vs ischemic PLAN: Continue IV cefepime,flagyl IV, micafungin IV would recommend at least 7-10 day course to cover intra abdominal leak related peritonitis mine since this was in hospital perforation concern for health care related organisms. Continue Flagyl for now. Depending on intra op findings from today decision about flagyl duration to be made. fu path Noted Cdiff PCR is negative. ? Zinc preparation in perianal care could cause false negative test. Path s/o Cdiff Colitis. D/W RN kwame RN and Dr.A Fernández: patient going to OR today. Jamia.w since hemodynamics not currently suggestive of sepsis but more hypotension from bleed related will continue same regimen. If overnight any clinical change please consider escalating antibiotics to Meropenem IV, Vanco IV and continue Flagyl IV and Micafungin IV. Patient is critically ill. Time spent in excess of 60 mins discontinuously, derika BENJAMIN, , , chart review, critical thinking and decision making. Barbara Clark MD Dec 22, 2015 14:40
[2015-12-22] MEDS ORDERED: BUPIVACAINE/EPINEPHRINE 0.5% PF 30 ML VIAL ONE (14:44)
[2015-12-22] MEDS ORDERED: THROMBIN (TOPICAL) 5,000 UNIT VIAL ONE (14:44)
[2015-12-22] MEDS ORDERED: GELFOAM SIZE 100 ONE (14:45)
[2015-12-22] MEDS ORDERED: HEPARIN SODIUM - IV 10,000 UNITS/10 ML VIAL ONE (14:45)
[2015-12-22 15:59] LABS: BLOOD GAS BASE EXCESS -6.1 mmol/L (-2-2); BLOOD GAS CARBOXYHEMOGLOBIN 1.3 % (0-4); BLOOD GAS HCO3 19 mmol/L (22-26); BLOOD GAS METHEMOGLOBIN 1.8 % (0-2); BLOOD GAS O2 HGB SATURATION 96 % (90-100); BLOOD GAS OXYGEN CONTENT 12.1 Vol % (12.0-20.0); BLOOD GAS PCO2 37 mmHg (38-42); BLOOD GAS PO2 127 mmHg (61-120); BLOOD GAS TOTAL HGB 8.8 G/DL (12.0-16.0); CRITICAL VALUE NO; OXYGEN DEVICE O.R. ABG; STAT YES; TEMP CORR TO 98.6
[2015-12-22] MEDS: VASOPRESSIN INJ 40 UNITS in DEXTROSE 5% IN WATER 100ML INJ 98 ML IV SCH ×2 (16:46)
[2015-12-22 18:03] LABS: BLOOD GAS BASE EXCESS -6.2 mmol/L (-2-2); BLOOD GAS CARBOXYHEMOGLOBIN 1.5 % (0-4); BLOOD GAS HCO3 18 mmol/L (22-26); BLOOD GAS O2 HGB SATURATION 93 % (90-100); BLOOD GAS OXYGEN CONTENT 13.1 Vol % (12.0-20.0); BLOOD GAS PCO2 34 mmHg (38-42); BLOOD GAS PO2 79 mmHg (61-120); BLOOD GAS TOTAL HGB 9.9 G/DL (12.0-16.0); CRITICAL VALUE NO; OXYGEN DEVICE VENTILATOR; TEMP CORR TO 98.6
[2015-12-22 18:04] LABS: DRAW SITE ART LINE; FIO2 40 %; ULNAR PULSE Y; VENT SETTINGS AC/VT500/R20/PEEP10
[2015-12-22 18:05] LABS: STAT NO
[2015-12-22 18:06] LABS: AUTOMATED NEUTROPHIL # 25.5 TH/MM3 (1.8-7.7); BASOPHIL # 0.1 TH/MM3 (0-0.2); BASOPHIL % 0.3 % (0.0-2.0); HEMATOCRIT 29.8 % (39.0-51.0); LYMPH % 6.4 % (9.0-44.0); LYMPHOCYTE # 1.9 TH/MM3 (1.0-4.8); MEAN CELL VOLUME 86.4 FL (80.0-100.0); MEAN CORPUSCULAR HEMOGLOBIN 29.7 PG (27.0-34.0); MEAN CORPUSCULAR HGB CONC 34.4 % (32.0-36.0); MONO % 7.4 % (0.0-8.0); NEUT % 85.9 % (16.0-70.0); PLATELET COUNT 117 TH/MM3 (150-450); RED BLOOD COUNT 3.45 MIL/MM3 (4.50-5.90); RED CELL DISTRIBUTION WIDTH 14.8 % (11.6-17.2); WHITE BLOOD COUNT 29.7 TH/MM3 (4.0-11.0)
[2015-12-22 18:07] LABS: HEMO FLAGS AUTO DIFF
[2015-12-22 18:25] LABS: APTT (PATIENT) 33.9 SEC (24.3-30.1); INTERNATIONAL NORMALIZED RATIO 1.2 RATIO; PROTHROMBIN TIME - PATIENT 13.2 SEC (9.8-11.6)
[2015-12-22 18:28] LABS: BICARBONATE 23.8 MEQ/L (21.0-32.0); POTASSIUM 3.6 MEQ/L (3.5-5.1)
[2015-12-22] MEDS: MAGNESIUM SULFAT 1 GM PREMIX 100 ML x2 bags IV SCH ×2 (20:00→21:00)
[2015-12-22] MEDS: POTASSIUM CHLORIDE IV-CENTRAL SCH ×9 (20:00)
[2015-12-22] MEDS: SODIUM ACETATE IV-CENTRAL SCH ×9 (20:00)
[2015-12-22] MEDS: [UNRECOGNIZED DRUG - OTHER] IV-CENTRAL SCH ×9 (20:00)
[2015-12-22] MEDS: MAGNESIUM SULFATE INJ 2 GM in SODIUM CHLORIDE 0.9% INJ 96 ML IV PRN (20:04)
[2015-12-22 22:01] LABS: BANDS 1 % (0-6); CORRECTED NUCLEATED RBC 11 /100 WBC (0-0); METAMYELOCYTES 6 % (0-1); MYELOCYTES 4 % (0-0); NEUTROPHIL # MANUAL DIFF 23.5 TH/MM3 (1.8-7.7); POLYS (SEG NEUTROPHILS) 68 % (16-70); WBC DIFF SAMPLE 100
[2015-12-22 22:02] LABS: CRENATED RBCS 1+ (NORMAL); KERATOCYTES 1+ (NORMAL); OVALOCYTES 1+ (NORMAL)
[2015-12-22 22:03] LABS: PLATELET ESTIMATE SMEAR LOW (NORMAL); PLATELET MORPHOLOGY NORMAL (NORMAL); SCAN/DIFF FINAL DIFF MANUAL
[2015-12-23] VITALS (20 sets, daily range): BP systolic 86–132; BP diastolic 55–98; PULSE 92–115; RESP 20; TEMP 97.2–98.6; O2SAT 96–100
[2015-12-23] MEDS: ACETAMINOPHEN 1000 MG/100 ML VIAL IV SCH ×3 (01:04→17:18)
[2015-12-23] MEDS: ALBUMIN HUMAN 5% 25 GM/500 ML BOTTLE IV PRN (01:05)
[2015-12-23] MEDS: LACTATED RINGER'S 1000 ML INJ 1,000 ML IV SCH ×2 (02:00→06:19)
[2015-12-23] MEDS: metroNIDAZOLE 500 MG INJ 100 ML IV SCH ×3 (03:00→21:19)
[2015-12-23] MEDS: HYDROCORTISONE SOD SUCCINATE 100 MG VIAL IV PUSH SCH ×4 (03:00→21:35)
[2015-12-23] MEDS: CHLORHEXIDINE GLUCONATE 2 % 1 PACK (2 CLOTHS) TOP SCH (03:01)
[2015-12-23] MEDS: INSULIN REGULAR (IV INFUSION) 100 UNITS in SODIUM CHLORIDE 0.9% INJ 99 ML IV SCH (03:02)
[2015-12-23 04:13] LABS: HEMATOCRIT 21.8 % (39.0-51.0); MEAN CELL VOLUME 87.3 FL (80.0-100.0); MEAN CORPUSCULAR HEMOGLOBIN 29.4 PG (27.0-34.0); MEAN CORPUSCULAR HGB CONC 33.7 % (32.0-36.0); PLATELET COUNT 95 TH/MM3 (150-450); RED CELL DISTRIBUTION WIDTH 15.2 % (11.6-17.2); WHITE BLOOD COUNT 31.6 TH/MM3 (4.0-11.0)
[2015-12-23 04:14] LABS: REVIEW FLAG FINAL
[2015-12-23 04:25] LABS: BICARBONATE 21.6 MEQ/L (21.0-32.0); POTASSIUM 3.5 MEQ/L (3.5-5.1)
[2015-12-23] MEDS: CEFEPIME INJ 2,000 MG in SODIUM CHLORIDE 0.9% INJ 100 ML IV SCH ×3 (05:00→23:03)
[2015-12-23] MEDS: PANTOPRAZOLE SODIUM 40 MG VIAL IV PUSH SCH ×2 (06:00→17:18)
[2015-12-23] MEDS ORDERED: METHADONE 10 MG/ML VIAL IV PUSH ONE (07:45)
[2015-12-23] MEDS ORDERED: FUROSEMIDE 40 MG/4 ML VIAL IVP ONE (07:45)
[2015-12-23] MEDS: fentaNYL DRIP 250 ML IV SCH (07:56)
[2015-12-23] MEDS: FUROSEMIDE INJ 100 MG in SODIUM CHLORIDE 0.9% INJ 90 ML IV SCH ×4 (08:38→23:03)
[2015-12-23] MEDS: CHLORHEXIDINE 0.12% (ORAL KIT) 15 ML CUP MT SCH ×2 (08:40→21:34)
[2015-12-23] MEDS: POVIDONE IODINE 10% OINT 30 GM TUBE TOPICAL SCH (08:48)
--- NOTE | 2015-12-23 11:37 | HHI.PR ---
Subjective Subjective Notes Much more stable since going to OR yesterday. Off pressors. Objective Vitals/I&O Vital Signs Date Time Temp Pulse Resp B/P Pulse Ox O2 Delivery O2 Flow Rate FiO2 12/23/15 10:00 100 12/23/15 10:00 104/63 12/23/15 08:00 98.6 20 96 12/23/15 08:00 40 12/19/15 22:00 Mechanical Ventilator Nasal Cannula 12/19/15 07:18 2.00 Labs Laboratory Tests Test 12/22/15 12/22/15 12/22/15 12/22/15 12:10 15:50 17:40 17:45 Blood Bank Comment Blood Gas Puncture Site ART LINE Blood Gas Patient Temperature 98.6 98.6 Blood Gas HCO3 19 18 Blood Gas Base Excess -6.1 -6.2 Blood Gas Oxygen Saturation 96 93 Arterial Blood pH 7.32 7.35 Arterial Blood Partial 37 34 Pressure CO2 Arterial Blood Partial 127 79 Pressure O2 Arterial Blood Oxygen Content 12.1 13.1 Arterial Blood 1.3 1.5 Carboxyhemoglobin Arterial Blood Methemoglobin 1.8 1.0 Blood Gas Hemoglobin 8.8 9.9 Oxygen Delivery Device O.R. ABG VENTILATOR White Blood Count 29.7 Red Blood Count 3.45 Hemoglobin 10.3 Hematocrit 29.8 Mean Corpuscular Volume 86.4 Mean Corpuscular Hemoglobin 29.7 Mean Corpuscular Hemoglobin 34.4 Concent Red Cell Distribution Width 14.8 Platelet Count 117 Mean Platelet Volume 8.9 Neutrophils (%) (Auto) 85.9 Lymphocytes (%) (Auto) 6.4 Monocytes (%) (Auto) 7.4 Eosinophils (%) (Auto) 0.0 Basophils (%) (Auto) 0.3 Neutrophils # (Auto) 25.5 Lymphocytes # (Auto) 1.9 Monocytes # (Auto) 2.2 Eosinophils # (Auto) 0.0 Basophils # (Auto) 0.1 CBC Comment AUTO DIFF Differential Total Cells 100 Counted Neutrophils % (Manual) 68 Band Neutrophils % 1 Lymphocytes % 19 Monocytes % 2 Neutrophils # (Manual) 23.5 Metamyelocytes 6 Myelocytes 4 Nucleated Red Blood Cells 11 Differential Comment FINAL DIFF MANUAL Platelet Estimate LOW Platelet Morphology Comment NORMAL Ovalocytes 1+ Crenated Cell 1+ Keratocytes 1+ Prothrombin Time 13.2 Prothromb Time International 1.2 Ratio Activated Partial 33.9 Thromboplast Time Fibrinogen 202 Sodium Level 146 Potassium Level 3.6 Chloride Level 115 Carbon Dioxide Level 23.8 Anion Gap 7 Blood Urea Nitrogen 67 Creatinine 1.41 Estimat Glomerular Filtration 53 Rate Random Glucose 170 Lactic Acid Level 3.0 Calcium Level 7.7 Blood Gas Ventilator Setting [id number]/[id number]/[id number] Blood Gas Inspired Oxygen 40 Test 12/23/15 03:30 White Blood Count 31.6 Red Blood Count 2.50 Hemoglobin 7.4 Hematocrit 21.8 Mean Corpuscular Volume 87.3 Mean Corpuscular Hemoglobin 29.4 Mean Corpuscular Hemoglobin 33.7 Concent Red Cell Distribution Width 15.2 Platelet Count 95 Mean Platelet Volume 9.9 Sodium Level 149 Potassium Level 3.5 Chloride Level 118 Carbon Dioxide Level 21.6 Anion Gap 9 Blood Urea Nitrogen 66 Creatinine 1.31 Estimat Glomerular Filtration 57 Rate Random Glucose 114 Calcium Level 8.0 Magnesium Level 1.9 Date/Time Procedure Status Source Growth 12/21/15 15:07 Gram Stain - Final Complete Sputum Endotracheal 12/21/15 15:07 Sputum Culture - Final Complete Sputum Endotracheal LIGHT GROWTH NORMAL RESPIRATORY DORI 12/18/15 21:52 Aerobic Blood Culture - Final Complete Blood Peripheral NO GROWTH IN 5 DAYS 12/18/15 21:52 Anaerobic Blood Culture - Final Complete Blood Peripheral QNS - SEE AEROBE REPORT Cardiovascular: Regular Lungs: Upper airway course sound (L>>R) Abdomen: Other (Quiet) Narrative Exam VAC dressing in place; serosanguinous drainage from line. BEV with minimal serosanguinous drainage; no further bloody drainage. A/P Assessment and Plan POD #1/3 for colon resection and takeback, now stable. Urine output down, but Cr only 1.3 Expect probable renal dysfunction worsening. CO 7.5, SVV 6 Plan: Lasix drip to diurese Transfuse as necessary (Hb 7.4 now) Owen Soto MD Dec 23, 2015 11:37
[2015-12-23] MEDS: VASOPRESSIN INJ 40 UNITS in DEXTROSE 5% IN WATER 100ML INJ 98 ML IV SCH ×2 (14:08)
[2015-12-23 14:47] LABS: HEMATOCRIT 21.8 % (39.0-51.0)
[2015-12-23 14:52] LABS: REVIEW FLAG FINAL
[2015-12-23 15:09] LABS: BICARBONATE 24.7 MEQ/L (21.0-32.0)
[2015-12-23] MEDS: MICAFUNGIN INJ 150 MG in SODIUM CHLORIDE 0.9% INJ 100 ML IV SCH (15:14)
[2015-12-23] MEDS ORDERED: ALTEPLASE RECOMBINANT 2 MG VIAL IV FLUSH ONE (16:00)
[2015-12-23 16:07] LABS: POTASSIUM 3.6 MEQ/L (3.5-5.1)
[2015-12-23] MEDS ORDERED: CHLOROTHIAZIDE SOD 500 MG VIAL IV ONE (17:00)
[2015-12-23] MEDS ORDERED: ALTEPLASE RECOMBINANT 2 MG VIAL IVF ONE (18:00)
--- NOTE | 2015-12-23 18:35 | HHI.IDPN ---
Subjective Subjective Remarks ID [id number] for 55 y/o male admitted with lethargy and right hand pain. 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 BCX on admission with E.coli. Blood and wound cultures subsequently in initial phase of illness with MSSA. Patient was followed by hand surgery and underwent debridement eventually. Clinically as reported to me by was doing well. Patient was extubated and deteriorated day after with abdominal tenderness and distention. Patient had a CT Abd/pelvis which revealed pneumoperitoneum with ascites. Patient underwent colonic resection. Overnight taken back to OR bleeder controlled. Further Ischemic bowel noted. UO marginal. on vent Periods of hypothermia. 1 episode of HR of 30 fixed by Magnesium replacement. No diarrhea No rash Antibiotics cefepime IV, IV flagyl, micafungin IV Lines RIJ and other Line sites with no e/o infection Past Medical History RA HCV sp splenectomy Allergies: Coded Allergies: Compazine (Verified Allergy, Severe, VOMITING, RASH, 08/26/14) SLURRED SPEECH, MIGRAINES Demerol (Verified Allergy, Severe, VOMITING, 08/26/14) Levaquin (Verified Allergy, Severe, 08/26/14) Penicillin (Verified Allergy, Severe, Rash, 08/26/14) Phenergan (Verified Allergy, Severe, VOMITING, 08/26/14) Uncoded Allergies: ANTI-CONVULSIVES (Allergy, Severe, MIGRAINES, SLURRED SPEECH,, 01/23/14) Objective . Vital Signs Date Time Temp Pulse Resp B/P Pulse Ox O2 Delivery O2 Flow Rate FiO2 12/23/15 18:00 94 12/23/15 18:00 129/77 12/23/15 17:48 20 12/23/15 16:00 40 12/23/15 16:00 98.6 94 20 126/76 100 12/23/15 16:00 104/63 12/23/15 16:00 94 12/23/15 15:31 100 40 12/23/15 15:00 104/63 12/23/15 15:00 103 12/23/15 12:06 100 40 12/23/15 12:00 40 12/23/15 12:00 104/63 12/23/15 12:00 100 12/23/15 12:00 98.2 100 20 115/71 100 12/23/15 10:00 100 12/23/15 10:00 104/63 12/23/15 08:00 104/63 12/23/15 08:00 98.6 115 20 116/98 96 12/23/15 08:00 40 12/23/15 08:00 115 12/23/15 07:25 96 40 12/23/15 06:00 104/63 12/23/15 06:00 100 12/23/15 04:00 96 12/23/15 04:00 102/60 12/23/15 04:00 98.2 96 20 102/60 98 12/23/15 04:00 40 12/23/15 03:54 97 40 12/23/15 02:00 110 12/23/15 02:00 86/56 12/23/15 00:07 98 40 12/23/15 00:00 97.2 110 20 92/59 98 12/23/15 00:00 92/59 12/23/15 00:00 110 12/23/15 00:00 40 12/22/15 22:00 105/67 12/22/15 22:00 117 12/22/15 20:23 100 40 12/22/15 20:00 110 12/22/15 20:00 40 12/22/15 20:00 89/58 12/22/15 20:00 96.4 105 20 98/65 100 12/22/15 12/22/15 12/23/15 15:00 23:00 07:00 Intake Total 4678 ml 2842 ml 3361 ml Output Total 3275 ml 1300 ml 1400 ml Balance 1403 ml 1542 ml 1961 ml IV Total 2506 ml 2489 ml 3008 ml TPN/PPN 353 ml 353 ml 353 ml Packed Cells 1000 ml FFP 364 ml Platelets 455 ml Output Urine Total 300 ml 200 ml 300 ml Stool Total 0 ml 0 ml 0 ml Gastric Drainage Total 400 ml 200 ml 0 ml Drainage Total 2575 ml 900 ml 1100 ml . Laboratory Tests Test 12/21/15 12/22/15 12/22/15 12/22/15 19:45 01:00 04:55 06:30 White Blood Count 36.4 TH/MM3 28.1 TH/MM3 26.6 TH/MM3 17.1 TH/MM3 Red Blood Count 2.44 MIL/MM3 1.75 MIL/MM3 3.00 MIL/MM3 2.15 MIL/MM3 Hemoglobin 7.3 GM/DL 4.9 GM/DL 8.5 GM/DL 6.1 GM/DL Hematocrit 21.8 % 14.8 % 24.9 % 17.6 % Mean Corpuscular Volume 89.5 FL 84.6 FL 82.8 FL 82.1 FL Mean Corpuscular Hemoglobin 29.9 PG 28.0 PG 28.3 PG 28.1 PG Mean Corpuscular Hemoglobin 33.4 % 33.1 % 34.2 % 34.3 % Concent Red Cell Distribution Width 16.7 % 17.6 % 16.0 % 16.2 % Platelet Count 69 TH/MM3 33 TH/MM3 47 TH/MM3 38 TH/MM3 Mean Platelet Volume 10.7 FL 9.8 FL 8.0 FL 8.3 FL Neutrophils (%) (Auto) 81.5 % Lymphocytes (%) (Auto) 9.7 % Monocytes (%) (Auto) 8.3 % Eosinophils (%) (Auto) 0.0 % Basophils (%) (Auto) 0.5 % Neutrophils # (Auto) 13.9 TH/MM3 Lymphocytes # (Auto) 1.7 TH/MM3 Monocytes # (Auto) 1.4 TH/MM3 Eosinophils # (Auto) 0.0 TH/MM3 Basophils # (Auto) 0.1 TH/MM3 CBC Comment AUTO DIFF Differential Total Cells 100 Counted Neutrophils % (Manual) 64 % Band Neutrophils % 7 % Lymphocytes % 7 % Monocytes % 7 % Neutrophils # (Manual) 14.7 TH/MM3 Metamyelocytes 3 % Myelocytes 10 % Promyelocytes 2 % Nucleated Red Blood Cells 24 /100 WBC Differential Comment FINAL DIFF MANUAL Platelet Estimate LOW Platelet Morphology Comment NORMAL Ovalocytes 1+ Acanthocytes 1+ Test 12/22/15 12/22/15 12/23/15 12/23/15 09:20 17:40 03:30 14:00 White Blood Count 18.1 TH/MM3 29.7 TH/MM3 31.6 TH/MM3 Red Blood Count 2.13 MIL/MM3 3.45 MIL/MM3 2.50 MIL/MM3 Hemoglobin 6.3 GM/DL 10.3 GM/DL 7.4 GM/DL 7.4 GM/DL Hematocrit 18.3 % 29.8 % 21.8 % 21.8 % Mean Corpuscular Volume 86.1 FL 86.4 FL 87.3 FL Mean Corpuscular Hemoglobin 29.4 PG 29.7 PG 29.4 PG Mean Corpuscular Hemoglobin 34.2 % 34.4 % 33.7 % Concent Red Cell Distribution Width 14.7 % 14.8 % 15.2 % Platelet Count 141 TH/MM3 117 TH/MM3 95 TH/MM3 Mean Platelet Volume 8.3 FL 8.9 FL 9.9 FL Neutrophils (%) (Auto) 76.6 % 85.9 % Lymphocytes (%) (Auto) 11.6 % 6.4 % Monocytes (%) (Auto) 11.1 % 7.4 % Eosinophils (%) (Auto) 0.0 % 0.0 % Basophils (%) (Auto) 0.7 % 0.3 % Neutrophils # (Auto) 13.9 TH/MM3 25.5 TH/MM3 Lymphocytes # (Auto) 2.1 TH/MM3 1.9 TH/MM3 Monocytes # (Auto) 2.0 TH/MM3 2.2 TH/MM3 Eosinophils # (Auto) 0.0 TH/MM3 0.0 TH/MM3 Basophils # (Auto) 0.1 TH/MM3 0.1 TH/MM3 CBC Comment AUTO DIFF AUTO DIFF Differential Total Cells 100 100 Counted Neutrophils % (Manual) 64 % 68 % Band Neutrophils % 9 % 1 % Lymphocytes % 18 % 19 % Monocytes % 6 % 2 % Neutrophils # (Manual) 13.8 TH/MM3 23.5 TH/MM3 Metamyelocytes 2 % 6 % Myelocytes 1 % 4 % Nucleated Red Blood Cells 52 /100 WBC 11 /100 WBC Differential Comment FINAL DIFF FINAL DIFF MANUAL MANUAL Platelet Estimate NORMAL LOW Platelet Morphology Comment NORMAL NORMAL Ovalocytes 1+ Crenated Cell 1+ Keratocytes 1+ Laboratory Tests Test 12/21/15 12/21/15 12/22/15 12/22/15 19:45 21:38 02:25 06:30 Sodium Level 147 MEQ/L 151 MEQ/L 150 MEQ/L Potassium Level 3.1 MEQ/L 2.9 MEQ/L 4.4 MEQ/L 3.7 MEQ/L Chloride Level 118 MEQ/L 121 MEQ/L 119 MEQ/L Carbon Dioxide Level 20.4 MEQ/L 18.8 MEQ/L 21.4 MEQ/L Anion Gap 9 MEQ/L 11 MEQ/L 10 MEQ/L Blood Urea Nitrogen 81 MG/DL 75 MG/DL 69 MG/DL Creatinine 1.39 MG/DL 1.30 MG/DL 1.31 MG/DL Estimat Glomerular Filtration 53 ML/MIN 58 ML/MIN 57 ML/MIN Rate Random Glucose 210 MG/DL 121 MG/DL 103 MG/DL Calcium Level 6.8 MG/DL 7.5 MG/DL 9.3 MG/DL Protein Corrected Calcium 9.7 MG/DL Total Protein 2.4 GM/DL 2.8 GM/DL 3.6 GM/DL Total Bilirubin 0.6 MG/DL 0.7 MG/DL Direct Bilirubin 0.3 MG/DL Indirect Bilirubin 0.3 MG/DL Aspartate Amino Transf 10 U/L 13 U/L (AST/SGOT) Alanine Aminotransferase LESS THAN 6 U/L 10 U/L (ALT/SGPT) Alkaline Phosphatase 34 U/L 42 U/L Albumin 1.7 GM/DL 1.9 GM/DL Amylase Level 35 U/L Lipase 303 U/L Test 12/22/15 12/23/15 12/23/15 17:40 03:30 14:00 Sodium Level 146 MEQ/L 149 MEQ/L 148 MEQ/L Potassium Level 3.6 MEQ/L 3.5 MEQ/L 3.6 MEQ/L Chloride Level 115 MEQ/L 118 MEQ/L 113 MEQ/L Carbon Dioxide Level 23.8 MEQ/L 21.6 MEQ/L 24.7 MEQ/L Anion Gap 7 MEQ/L 9 MEQ/L 10 MEQ/L Blood Urea Nitrogen 67 MG/DL 66 MG/DL 66 MG/DL Creatinine 1.41 MG/DL 1.31 MG/DL 1.46 MG/DL Estimat Glomerular Filtration 53 ML/MIN 57 ML/MIN 51 ML/MIN Rate Random Glucose 170 MG/DL 114 MG/DL 138 MG/DL Lactic Acid Level 3.0 mmol/L Calcium Level 7.7 MG/DL 8.0 MG/DL 7.5 MG/DL Magnesium Level 1.9 MG/DL 2.0 MG/DL Microbiology Date/Time Procedure Status Source Growth 12/21/15 15:07 Gram Stain - Final Complete Sputum Endotracheal 12/21/15 15:07 Sputum Culture - Final Complete Sputum Endotracheal LIGHT GROWTH NORMAL RESPIRATORY DORI Imaging Last Impressions Chest X-Ray 12/19/15 0000 Signed Impressions: Service Date/Time: Saturday, December 19, 2015 18:37 - CONCLUSION: Endotracheal tube tip terminates 1 cm above the gregoria, with decreased lung volumes noted bilaterally. Arcadio Dickerson MD Abdomen/Pelvis CT 12/19/15 0000 Signed Impressions: Service Date/Time: Saturday, December 19, 2015 10:57 - CONCLUSION: 1. Adjacent volume pneumoperitoneum is observed consistent with perforation of a hollow viscus. This is presumably colonic in origin due to the diffuse inflammatory process involving the colon. I do not clearly identify the source of the pneumoperitoneum however. There is mild dilatation of the small bowel likely an ileus in nature. A significant volume of ascitic fluid is noted. 2. Bibasilar atelectasis and bilateral pleural effusions. 3. Small pericardial effusion. 4. Small bilateral nonobstructing renal calculi. 5. I spoke with Dr. Sanchez concerning the findings. Osmar Chavez Jr., MD Abdomen X-Ray 12/18/15 0000 Signed Impressions: Service Date/Time: Friday, December 18, 2015 16:05 - CONCLUSION: Feeding tube tip is at the gastric antrum. Arnaldo Elias MD Chest CT 12/14/15 0000 Signed Impressions: Service Date/Time: Monday, December 14, 2015 06:12 - CONCLUSION: 1. Cardiomegaly with bilateral consolidation, likely CHF. Pneumonia cannot be excluded. 2. Small right pleural effusion. Wojciech Lockhart MD Head CT 12/02/15 1013 Signed Impressions: Service Date/Time: Wednesday, December 02, 2015 11:00 - CONCLUSION: 1. No intracranial abnormality is seen. 2. Air-fluid level in the right maxillary sinus. Arnaldo Reyes MD Physical Exam GENERAL: On vent , sedated appears toxic SKIN: + mild jaundice. Anasarca HEENT: no icterus, NO nasal drainage orally intubated NECK: Trachea midline. Supple, nontender. CARDIOVASCULAR: systolic murmur in base of heart RESPIRATORY/CHEST: + rhonchi on auscultation. Breath sounds equal bilaterally. GASTROINTESTINAL: Abdomen open with VAC in place x 2 and serosang dc GENITOURINARY: Sandoval catheter in place with clear light yellow urine scrotum is mildly edematous. MUSCULOSKELETAL: Extremities no cyanosis, Edema significant 3+ NEUROLOGICAL: sedated LINES: NO evidence of infection Assessment & Plan Remarks Sepsis related to Cdiff and Intra abdominal peritonitis. Cdiff Colitis per intra op path. Bowel perforation related Abdominal peritonitis. Of note patient has been on steroids prior to and since 12/19/15 which is risk factor for perforation. RUE severe nec fasc 2/2 MSSA - skin grafting was planned, but cancelled - S/P I and D x 3 - RUE infx clinically resolved MSSA bacteremia 2/2 RUE infx - resolved per d/w . E.coli bacteremia on presentation -source is likely gut Immunosuppressed on steroids, s/p splenectomy. PCN allergy, but no probs with Keflex per report. ARF/ DEIRDRE/ATN 2/2 sepsis -stable Bowel necrosis - suspected C.diff per path vs ischemic PLAN: Continue IV cefepime,flagyl IV, micafungin IV would recommend at least 7-10 day course to cover intra abdominal leak related peritonitis mine since this was in hospital perforation concern for health care related organisms. Continue Flagyl for now. Depending on intra op findings from today decision about flagyl duration to be made. fu path Noted Cdiff PCR is negative. ? Zinc preparation in perianal care could cause false negative test. Path s/o Cdiff Colitis. D/W RN kwame RN and Dr.A Fernández: continue same regimen. WBC elevation likely stress related. Observe on current regimen. D.w since hemodynamics not currently suggestive of sepsis but more hypotension from bleed related will continue same regimen. If overnight any clinical change please consider escalating antibiotics to Meropenem IV, Vanco IV and continue Flagyl IV and Micafungin IV. Patient is critically ill. to resume care in . Barbara Clark MD Dec 23, 2015 18:35
--- NOTE | 2015-12-23 20:17 | HHI.CCPN ---
Subjective Remarks/Hospital Course 55-year-old male brought by EMS with altered mental status. He has been confused for 2 days but this morning has been the worst. He has history of chronic opiate medications including methadone and morphine that he takes for pain management and hence they gave him Narcan IV which brought the GCS up to 13. The blood glucose was 74. He has open wounds from his right upper and bilateral lower extremities. He has history of hepatitis C. Last week he was pealing and eating shrimps. Bedside blood sugar was 76 in the ER. He was tachycardic in 1 teens and was intubated in the ED for airway protection. Admitted to ICU with sepsis due to Staph Aureus hand infection and E. Coli bacteriemia. 12/05 Patient remains sedated with Fentanyl and intubated. On Levophed 3 mics, Vasopressin 0.03 mics and Bicarb drip. T:99.8 TF placed on hold OGT to LIWS last night - gastric drainage 525ml overnight. 12/06 Patient is sedated with Fentanyl and intubated, On Levophed 3 mics, off vasopressin. Gastric output 400ml in 24 hrs. KUB abdomen yesterday mildly distended colon otherwise non specific KUB. 12/07 Patient is off sedation remains intubated tolerated CPAP for most day yesterday. Afebrile. on no drips, tolerating tube feeds. 12/08 Patient went to OR yesterday for debridement and irrigation of right forearm and wound VAC placement. Given 2U PRBC and 2u PLT yesterday and currently receiving 1of 2 u additional PRBC. Hgb 7.7, PLT 43 this morning. Patient also started on pressors now on Levophed 10 mics. Vasopressin 0.04 mics. On no sedation. 12/09 Patient remains intubated off pressors, Afebrile. Tolerating tube feeds. Afebrile. 12/10 Patient is sedated with Fentanyl and intubated. Awake and follows commands off sedation. Afebrile. 12/11 Patient had ?SVT overnight given Lopressor 2.5mg IV x1, Remains intubated and sedated with Fentanyl. Afebrile. Tolerating TF. 12/12 Patient spoked fever last night with T: 101.5, sedated with Fentanyl and intubated. 12/13 Patient had an episode of desaturation overnight required increase FIO2/ PEE now on ACV with RR 14, TV 550, PEEP: 12, FIO2 60% with sats 100% CT chest performed overnight showed b/l consolidation and small pleural effusion. Had T: 100.0 last night. 12/14 Tolerating PS 15/CPAP 10 FiO2 40% with rSBI 38, weaning. . Awake and alert , following commands. Hypotensive overnight and levophed restarted up to 12 mcg/ min. Nurse has been weaning throughout the day. Suspected adrenal insufficiency as he was on prednisone as outpatient for gout and has not been on stress dose steroids. Given decadron. 12/15 Transfused 1 unit PRBC for Hgb 7.0 yesterday, 1 unit PRBC for Hgb 6.6 today and now Hgb 8.3. Does not clinically have e/o active GI bleeding and wound vac output nonbloody. Stool 1500 output, C diff negative. No abdominal pain. Remains Awake and alert, remained on CPAP 10/5 last night and is now tolerating CPAP 5/5. 12/16: Extubated yesterday tolerating well. Breathing comfortably. Able to follow commands. UO 1.8 L in 24 hours. Na slightly increased to 153. 12/17: Significantly worse this AM. WBC up to 28 from 16. Hgb 5.2 from 7.9. tachycardic. pale this AM. states he feels tired. Continues on BiPAP. Plan for debridement of his arms today. LIJ CVL does not have any signs of overt infection. 12/18: Blood cell count continues to rise today to 30 from 28. Required 1 unit of blood for hemoglobin of 6.6 which improved to 7.7 this morning. However, patient remains tachycardic in the 120s and significantly pale. CT abdomen and pelvis ordered and pending. Tachypneic with respiratory rate in the 30s. Only small amount of dark tarry stool yesterday with approximately 300 cc of stool output. C. difficile toxin negative 3. After discussion with infectious disease, restart vancomycin, cefepime, Flagyl, micafungin. Rey cultures are pending. Per discussion with GI, will not scope as endoscopy is high risk given his tenuous respiratory status this point. Slightly worse hypernatremia as well as worsening acute kidney injury this morning. 12/19: POD 1 s/p ex-lap, washout for perforated ascending colon with extended right hemicolectomy, primary ileocolic anastamosis, open abdomen, septic shock, acute hypoxic and hypercarbic respiratory failure. Significantly critically ill overnight: required 6L ivf resuscitation, 1 unit prbc, norepinephrine, vasopressin, stress dose hydrocortisone. This morning, remains on high-dose vasopressors. still has large volume ivf requirement. Significant SIRS response. Vent requirements increasing with all this volume resuscitation, PEEP up to 10. He remains critically ill, and although I do believe we have surgical source control, I anticipate he will continue to clinically decline before he starts to make improvements. 12/20: Off pressors. follows commands on sedation holiday. +11L over last 3 days during acute illness, +22L since admission. We are going to have to get some of this volume back before we are able to close him given his severe anasarca. 12/21: Taken back to the OR yesterday afternoon for washout and completion colectomy. Postoperatively was significantly under resuscitated as well as had ongoing active oozing. Patient was coagulopathy. The patient was in distributive and hemorrhagic shock. The patient was given multiple units of blood products overnight. Patient was thrombocytopenic, hypofibrinogenemic, coagulopathic. Given significant volume of blood product resuscitation: 24h blood products: 13 prbc 8 ffp 2 plt 1 10-pack cryo This morning continues to have significant amount of bright red output out of his BEV and wound VAC, approximately 500 cc an hour out of his wound VAC, and approximately 75 an mils every 10 minutes out of a BEV. I discussed with surgery and we will correct his Coreg colopathy and plan to go back to the OR for exploration early this afternoon. Subjective: 12/22: Clinically starting to improve hemodynamically. off vasopressors. Net+ 26L. CVP rising to 14. UOP adequate. Hgb 7 this AM. Objective Vital Signs Date Time Temp Pulse Resp B/P Pulse Ox O2 Delivery O2 Flow Rate FiO2 12/23/15 19:35 99 40 12/23/15 18:00 94 12/23/15 18:00 129/77 12/23/15 17:48 20 12/23/15 16:00 98.6 12/19/15 22:00 Mechanical Ventilator Nasal Cannula 12/19/15 07:18 2.00 Intake and Output 11/07/0112/22/15 12/23/15 08:00 16:00 00:00 Intake Total 5816 ml 4678 ml 2842 ml Output Total 2850 ml 3275 ml 1300 ml Balance 2966 ml 1403 ml 1542 ml Result Diagram: 12/23/15 1400 12/23/15 1400 Other Results Microbiology Date/Time Procedure Status Source Growth 12/21/15 15:07 Gram Stain - Final Complete Sputum Endotracheal 12/21/15 15:07 Sputum Culture - Final Complete Sputum Endotracheal LIGHT GROWTH NORMAL RESPIRATORY [facility] Imaging Last Impressions Chest X-Ray 12/17/15 0600 Signed Impressions: Service Date/Time: Thursday, December 17, 2015 03:25 - CONCLUSION: Persistent left lower lobe consolidation. Osmar Alegria MD Chest CT 12/14/15 0000 Signed Impressions: Service Date/Time: Monday, December 14, 2015 06:12 - CONCLUSION: 1. Cardiomegaly with bilateral consolidation, likely CHF. Pneumonia cannot be excluded. 2. Small right pleural effusion. Wojciech Lockhart MD Abdomen X-Ray 12/06/15 0000 Signed Impressions: Service Date/Time: November 09:53 - CONCLUSION: Nonspecific KUB. Air is seen within a mildly distended colon but contrast is clearly seen in the rectum. Arnaldo Reyes MD Abdomen/Pelvis CT 12/04/15 0000 Signed Impressions: Service Date/Time: Friday, December 04, 2015 16:24 - CONCLUSION: 1. Mildly distended small bowel in the mid and lower abdomen. Contrast is clearly seen extending into the distal small bowel and ascending colon so a complete obstruction is not seen. A transition point is not seen. This pattern likely represents an ileus versus a partial obstruction. 2. Multiple nonobstructing renal stones. 3. Abnormal appearance of the spleen which appears to represent a splenule. It could be correlated if the patient has had either primary splenic removal or splenic injury and this is what is either left of the spleen or a developing splenule. This is likely of no significance. 4. Mild ascites. 5. Increased density within the gallbladder representing either tumefactive sludge or noncalcified stones. 6. Mild bilateral pleural effusions with prominent areas of lower lobe atelectasis or consolidation at the bases bilaterally. 7. Subacute to chronic bilateral rib fractures and multiple compression fractures in the lower thoracic and lumbar spine as described above. The patient does have a prior CT examination from 08/26/2014. All the compression deformities described above are new when compared to that scan. Arnaldo Reyes MD Head CT 12/02/15 1013 Signed Impressions: Service Date/Time: Wednesday, December 02, 2015 11:00 - CONCLUSION: 1. No intracranial abnormality is seen. 2. Air-fluid level in the right maxillary sinus. Arnaldo Reyes MD Objective Remarks GENERAL: middle-aged male, lying in bed, intubated, sedated, in distress. critically ill. HEENT: anisocoric pupils L 6mm, R 5mm, reactive. mucous membranes moist. NECK: trachea midline. obese neck. difficult to assess JVD. left IJ triple lumen catheter in place, site is clean and dry without signs of erythema or drainage. RESPIRATORY: Intubated. Breath sounds equal bilaterally. coarse rales b/l. CARDIOVASCULAR:Tachycardic, regular without murmurs. GASTROINTESTINAL: Abdomen is left open with midline wound vac in place draining sanguinous output. BEV drain in left upper quadrant with sanguinous output. Rectal tube in place with melanic appearing stool. MUSCULOSKELETAL: Generalized anasarca-worse today than yesterday. Multiple open wounds in the lower extremity. RUE - with wound vac in place. L upper extremity dressing in place. NEURO: RASS - 3. Not following commands today. 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 He has made improvements in his shock state. He is now severely volume overloaded given the large volume resuscitation he required for his shock. He also continues to have an DEIRDRE. We've made slight improvements in hemodynamics. However we are still grossly anasarca and volume overloaded. We need to start diuresing the patient with forced diuresis. This will be difficult given his ongoing acute kidney injury and the fact that I think that his renal function may be worsening and not improving. I have had numerous daily talks with his family about the fact that we may end up having to utilize renal replacement therapy in order to optimize his volume status and his abdomen closed and progress his care. I do not think we are at that point today. He still remains severely critically ill Neuro: Acute encephalopathy secondary to sepsis Acute pain secondary to multiple soft tissue infections Acute post-surgical pain Chronic pain -- continue tylenol 1gm IV q8h scheduled for pain -- holding oral opiates. -- remains off home methadone given renal function I will bolus him with methadone 30mg iv x 1 as a loading dose to help with his acute on chronic pain. Certainly, given his varying renal clearance, scheduled methadone is not a good idea at this time, but a single loading dose of 0.3mg/kg should be effective in pain control. -- dilaudid 0.5-2mg iv q4h prn for breakthrough pain. -- fentanyl infusion for goal RASS -2. -- d/c ketamine drip. He should likely get the analgesic benefits of this infusion for another 72h given renal function and total volume of distribution of ketamine. Respiratory Acute respiratory failure-extubated 12/16/15, reintubated for surgery 12/18 Acute hypoxic and hypercarbic respiratory failure Acute healthcare associated pneumonia- resolved NIGEL on home CPAP --Extubated 12/15, reintubated for emergent ex-lap 12/18 --ACV 550/18/10/45%. -- Vent bundle -- Head of bed at 30 degrees -- Nebs q6h and q2h prn. -- does not meet SBT criteria today 2/2 acute volume overload and open abdomen. --CT chest 12/13 b/l consolidation with small right pleural effusion CV Septic Shock- resolving. Hemorrhagic shock- resolved. --Norepinephrine for map goal > 65 mmHg --Cortisol level was 14 on 12/14 -- stress dose steroids, hydrocortisone 50 q6h, we will begin weaning this once his abdominal incision is closed. --Echo 12/07 EF 65-70%, grade I diastolic dysfunction -- continue to trend CVP. Renal: -DEIRDRE Hypernatremia- improving. Acute intravascular and total body volume overload --Cr stable today . He will continue to have acute kidney injury throughout this acute shock state -- continue Sandoval. -- likely he will continue to have ongoing renal insufficiency. He may need renal replacement at some point during this acute illness, but at present, he does not need this. Will begin forced diuresis today with lasix 40mg iv x 1 and then lasix infusion at 20mg/hr. may require intermittent iv diuril. goal -2L today if he will tolerate it. We will use norephinephrine up to 5mcg/min to assist in forced diuresis. FEN/GI Acute protein calorie malnutrition- severe Hypokalemia perforated right colon with colitis Total body volume overload Intravascular hypervolemia Distributive Shock Anion Gap metabolic acidosis Open abdomen s/p ex-lap, extended right hemicolectomy with primary ileocolic anastamosis, washout, open abdomen (12/18) -- Strict NPO -- (TF recs per Nutrition Glucerna 1.5 at 60cc/hr) -- GI consulted for assistance in prior GI bleeding: Now signed off -- continue TPN -- ICU electrolyte protocol -- Daily BMP -- IV PPI BID -- per surgery, going back to OR Thursday at 10:30am Heme: Acute Anemia secondary to acute blood loss Thrombocytopenia Hypofibrinogenemia secondary to consumption and acute blood loss Coagulopathy secondary to consumption and acute blood loss --monitor CBC --Hep PLT ab negative on 12/03 -- d/c ferrous sulfate. -- Transfusion Triggers: Hgb < 7 INR > 2 Fibrinogen < 150 Plt < 100K with active bleeding. ID - Septic Shock - Necrotizing Fascitis - MSSA on wound culture 12/07. - Ecoli bacteremia 12/01 - MSSA bacteremia 12/05. Cleared on f/u blood culture 12/07, 12/12. Leukocytosis Sepsis of Intra-abdominal origin. C. difficile toxic megacolon -- Debridement 12/01 p.m at bedside by Dr Pedro and Dr. Hartmann -- R hand, forearm and olecrenon bursa I and D and Wound vac 12/07 Dr Chavez. Vancomycin, cefepime, Flagyl, micafungin started 12/17. --12/17 blood cultures: NGTD 12/17 central line culture: NGTD 12/17 urine cultures: NGTD 12/17 sputum cultures: NGTD C. difficile toxin 12/17: Negative (3rd negative toxin screen) -- ID consulted (Dr. Becerra) Endocrine: Hyperglycemia of Critical Illness Diabetes Presumed acute adrenal insufficiency Continue insulin drip with every hour Accu-Cheks -- continue hydrocortisone 50mg iv q6h. we will consider tapering this once his abdomen is closed. Prophylaxis: GI Prophylaxis: -- Protonix 40mg IV BID. DVT Prophylaxis: -- SCDs --Continue to hold pharmacologic DVT prophylaxis in the setting of acute hemorrhage. Lines: --L IJ CVL placed 12/13. The patient has significantly poor IV access given his multiple wounds. After discussion with the infectious disease team, we are keeping this line in place because the site looks good and does not appear to be infected. We do have cultures that were drawn from the line that are NGTD. If these cultures turn positive, or he has signs of bacteremia, we will replace this line. -- Sandoval -- left axillary arterial line 12/18. Dispo: -- remain in the [facility]. He is severely critically ill. This patient remains critically ill with one or more organ systems which are or may become a threat to life. I have spent in excess of 62 minutes discontinuously in the care and management of this patient. This time is exclusive of procedures, and includes, but is not limited to, evaluation of the patient, review of the medical record, discussions with family, consultants, nursing staff, or respiratory therapy, and documentation in the medical record. Problem Qualifiers (1) Respiratory failure: Qualified Code: J96.00 - Acute respiratory failure, unspecified whether with hypoxia or hypercapnia (2) Altered mental status: Qualified Code: R41.0 - Delirium (3) Sepsis: Qualified Code: A41.9 - Sepsis, due to unspecified organism Jeyson Fernández MD Dec 23, 2015 20:17
[2015-12-23] MEDS ORDERED: FUROSEMIDE 20 MG/2 ML VIAL IV PUSH ONE (20:45)
[2015-12-23] MEDS: FAT EMULSION 20% INJ 250 ML (Twice weekly over 8 hours) IV-CENTRAL SCH (21:20)
[2015-12-23] MEDS: [UNRECOGNIZED DRUG - OTHER] IV-CENTRAL SCH ×9 (21:20)
[2015-12-23] MEDS: SODIUM ACETATE IV-CENTRAL SCH ×9 (21:20)
[2015-12-23] MEDS: POTASSIUM CHLORIDE IV-CENTRAL SCH ×9 (21:20)
[2015-12-24] VITALS (16 sets, daily range): BP systolic 116–163; BP diastolic 84–101; PULSE 84–108; RESP 20–22; TEMP 97.5–98.8; O2SAT 97–100
[2015-12-24 01:31] LABS: BICARBONATE 22.7 MEQ/L (21.0-32.0); POTASSIUM 3.3 MEQ/L (3.5-5.1)
[2015-12-24] MEDS: ACETAMINOPHEN 1000 MG/100 ML VIAL IV SCH ×3 (01:58→17:12)
[2015-12-24] MEDS: FUROSEMIDE INJ 100 MG in SODIUM CHLORIDE 0.9% INJ 90 ML IV SCH ×2 (02:05→02:06)
[2015-12-24] MEDS: CHLORHEXIDINE GLUCONATE 2 % 1 PACK (2 CLOTHS) TOP SCH (04:00)
[2015-12-24] MEDS: PANTOPRAZOLE SODIUM 40 MG VIAL IV PUSH SCH ×2 (04:35→17:12)
[2015-12-24] MEDS: metroNIDAZOLE 500 MG INJ 100 ML IV SCH ×3 (04:36→21:55)
[2015-12-24] MEDS: HYDROCORTISONE SOD SUCCINATE 100 MG VIAL IV PUSH SCH ×4 (04:36→21:57)
[2015-12-24] MEDS: CEFEPIME INJ 2,000 MG in SODIUM CHLORIDE 0.9% INJ 100 ML IV SCH ×3 (04:38→21:56)
[2015-12-24] MEDS: fentaNYL DRIP 250 ML IV SCH ×2 (04:39→17:13)
[2015-12-24 07:25] LABS: MEAN CELL VOLUME 88.5 FL (80.0-100.0); MEAN CORPUSCULAR HEMOGLOBIN 31.4 PG (27.0-34.0); MEAN CORPUSCULAR HGB CONC 35.5 % (32.0-36.0); PLATELET COUNT 118 TH/MM3 (150-450); RED BLOOD COUNT 2.34 MIL/MM3 (4.50-5.90); RED CELL DISTRIBUTION WIDTH 15.5 % (11.6-17.2); WHITE BLOOD COUNT 32.9 TH/MM3 (4.0-11.0)
[2015-12-24 07:26] LABS: REVIEW FLAG FINAL
[2015-12-24 07:28] LABS: HEMATOCRIT 20.7 % (39.0-51.0)
[2015-12-24 07:47] LABS: BICARBONATE 23.7 MEQ/L (21.0-32.0); MAGNESIUM 2.1 MG/DL (1.5-2.5); POTASSIUM 3.3 MEQ/L (3.5-5.1)
[2015-12-24 08:15] LABS: CALCIUM-PROTEIN CORRECTED 8.8 MG/DL (8.5-10.1)
[2015-12-24] MEDS: POVIDONE IODINE 10% OINT 30 GM TUBE TOPICAL SCH (08:30)
[2015-12-24] MEDS: CHLORHEXIDINE 0.12% (ORAL KIT) 15 ML CUP MT SCH ×2 (08:30→21:57)
[2015-12-24] MEDS ORDERED: MIDAZOLAM HCL 2 MG/2 ML VIAL ONE (10:43)
[2015-12-24] MEDS ORDERED: LACTATED RINGER'S 1000 ML INJ 1,000 ML IV ONE (10:53)
[2015-12-24] MEDS ORDERED: PHENYLEPH/NS 1000 MCG/10 ML SYR IV ONE (10:53)
--- NOTE | 2015-12-24 13:06 | HHI.IDPN ---
Subjective Subjective Remarks events noted Pt was taken to OR Fri but developped bleeding and became ustable He is doing well now He is sp transfusion He is of presors remains on vent 40% FiO2, PEEP [address] Gutiérrez: pt is sp subtotal colectomy with sutures over prox stump He has some liquid stool thru rectal tue, but it slowed down per RN Antibiotics cefepime IV, IV flagyl, micafungin IV Lines RIJ and other Line sites with no e/o infection Past Medical History RA HCV sp splenectomy Allergies: Coded Allergies: Compazine (Verified Allergy, Severe, VOMITING, RASH, 08/26/14) SLURRED SPEECH, MIGRAINES Demerol (Verified Allergy, Severe, VOMITING, 08/26/14) Levaquin (Verified Allergy, Severe, 08/26/14) Penicillin (Verified Allergy, Severe, Rash, 08/26/14) Phenergan (Verified Allergy, Severe, VOMITING, 08/26/14) Uncoded Allergies: ANTI-CONVULSIVES (Allergy, Severe, MIGRAINES, SLURRED SPEECH,, 01/23/14) Objective . Vital Signs Date Time Temp Pulse Resp B/P Pulse Ox O2 Delivery O2 Flow Rate FiO2 12/24/15 10:00 98 137/89 12/24/15 10:00 98 12/24/15 08:00 98 133/86 12/24/15 08:00 99 12/24/15 08:00 40 12/24/15 08:00 98.1 100 21 141/89 100 12/24/15 07:00 100 12/24/15 06:00 98 132/84 12/24/15 06:00 92 12/24/15 04:00 40 12/24/15 04:00 97.5 108 20 140/86 100 12/24/15 04:00 108 140/86 12/24/15 04:00 84 12/24/15 02:00 98 133/90 12/24/15 02:00 84 12/24/15 00:00 98.6 89 20 139/86 100 12/24/15 00:00 40 12/24/15 00:00 98 139/86 12/24/15 00:00 84 12/23/15 23:40 100 40 12/23/15 22:28 100 40 12/23/15 22:00 92 12/23/15 22:00 98 132/84 12/23/15 20:00 98 12/23/15 20:00 40 12/23/15 20:00 98 132/80 12/23/15 20:00 98.6 98 20 132/80 100 12/23/15 19:35 99 40 12/23/15 18:00 94 12/23/15 18:00 129/77 12/23/15 17:48 20 12/23/15 16:00 40 12/23/15 16:00 98.6 94 20 126/76 100 12/23/15 16:00 104/63 12/23/15 16:00 94 12/23/15 15:31 100 40 12/23/15 15:00 104/63 12/23/15 15:00 103 12/23/15 12/23/15 12/24/15 15:00 23:00 07:00 Intake Total 976 ml 1249 ml 1469 ml Output Total 1860 ml 1730 ml 2060 ml Balance -884 ml -481 ml -591 ml IV Total 632 ml 995 ml 920 ml TPN/PPN 344 ml 254 ml 340 ml Lipid 209 ml Output Urine Total 610 ml 1000 ml 1300 ml Stool Total 0 ml 0 ml Gastric Drainage Total 0 ml 50 ml 0 ml Drainage Total 1250 ml 680 ml 760 ml . Laboratory Tests Test 12/22/15 12/23/15 12/23/15 12/24/15 17:40 03:30 14:00 06:20 White Blood Count 29.7 TH/MM3 31.6 TH/MM3 32.9 TH/MM3 Red Blood Count 3.45 MIL/MM3 2.50 MIL/MM3 2.34 MIL/MM3 Hemoglobin 10.3 GM/DL 7.4 GM/DL 7.4 GM/DL 7.4 GM/DL Hematocrit 29.8 % 21.8 % 21.8 % 20.7 % Mean Corpuscular Volume 86.4 FL 87.3 FL 88.5 FL Mean Corpuscular Hemoglobin 29.7 PG 29.4 PG 31.4 PG Mean Corpuscular Hemoglobin 34.4 % 33.7 % 35.5 % Concent Red Cell Distribution Width 14.8 % 15.2 % 15.5 % Platelet Count 117 TH/MM3 95 TH/MM3 118 TH/MM3 Mean Platelet Volume 8.9 FL 9.9 FL 10.4 FL Neutrophils (%) (Auto) 85.9 % Lymphocytes (%) (Auto) 6.4 % Monocytes (%) (Auto) 7.4 % Eosinophils (%) (Auto) 0.0 % Basophils (%) (Auto) 0.3 % Neutrophils # (Auto) 25.5 TH/MM3 Lymphocytes # (Auto) 1.9 TH/MM3 Monocytes # (Auto) 2.2 TH/MM3 Eosinophils # (Auto) 0.0 TH/MM3 Basophils # (Auto) 0.1 TH/MM3 CBC Comment AUTO DIFF Differential Total Cells 100 Counted Neutrophils % (Manual) 68 % Band Neutrophils % 1 % Lymphocytes % 19 % Monocytes % 2 % Neutrophils # (Manual) 23.5 TH/MM3 Metamyelocytes 6 % Myelocytes 4 % Nucleated Red Blood Cells 11 /100 WBC Differential Comment FINAL DIFF MANUAL Platelet Estimate LOW Platelet Morphology Comment NORMAL Ovalocytes 1+ Crenated Cell 1+ Keratocytes 1+ Laboratory Tests Test 12/22/15 12/23/15 12/23/15 12/24/15 17:40 03:30 14:00 01:00 Sodium Level 146 MEQ/L 149 MEQ/L 148 MEQ/L 149 MEQ/L Potassium Level 3.6 MEQ/L 3.5 MEQ/L 3.6 MEQ/L 3.3 MEQ/L Chloride Level 115 MEQ/L 118 MEQ/L 113 MEQ/L 116 MEQ/L Carbon Dioxide Level 23.8 MEQ/L 21.6 MEQ/L 24.7 MEQ/L 22.7 MEQ/L Anion Gap 7 MEQ/L 9 MEQ/L 10 MEQ/L 10 MEQ/L Blood Urea Nitrogen 67 MG/DL 66 MG/DL 66 MG/DL 66 MG/DL Creatinine 1.41 MG/DL 1.31 MG/DL 1.46 MG/DL 1.49 MG/DL Estimat Glomerular Filtration 53 ML/MIN 57 ML/MIN 51 ML/MIN 49 ML/MIN Rate Random Glucose 170 MG/DL 114 MG/DL 138 MG/DL 197 MG/DL Lactic Acid Level 3.0 mmol/L Calcium Level 7.7 MG/DL 8.0 MG/DL 7.5 MG/DL 7.6 MG/DL Magnesium Level 1.9 MG/DL 2.0 MG/DL 2.0 MG/DL Test 12/24/15 06:20 Sodium Level 148 MEQ/L Potassium Level 3.3 MEQ/L Chloride Level 114 MEQ/L Carbon Dioxide Level 23.7 MEQ/L Anion Gap 10 MEQ/L Blood Urea Nitrogen 74 MG/DL Creatinine 1.61 MG/DL Estimat Glomerular Filtration 45 ML/MIN Rate Random Glucose 120 MG/DL Calcium Level 7.0 MG/DL Protein Corrected Calcium 8.8 MG/DL Magnesium Level 2.1 MG/DL Total Protein 4.0 GM/DL Microbiology Date/Time Procedure Status Source Growth 12/21/15 15:07 Gram Stain - Final Complete Sputum Endotracheal 12/21/15 15:07 Sputum Culture - Final Complete Sputum Endotracheal LIGHT GROWTH NORMAL RESPIRATORY [facility] Imaging Last Impressions Chest X-Ray 12/19/15 0000 Signed Impressions: Service Date/Time: Saturday, December 19, 2015 18:37 - CONCLUSION: Endotracheal tube tip terminates 1 cm above the gregoria, with decreased lung volumes noted bilaterally. Arcadio Dickerson MD Abdomen/Pelvis CT 12/19/15 0000 Signed Impressions: Service Date/Time: Saturday, December 19, 2015 10:57 - CONCLUSION: 1. Adjacent volume pneumoperitoneum is observed consistent with perforation of a hollow viscus. This is presumably colonic in origin due to the diffuse inflammatory process involving the colon. I do not clearly identify the source of the pneumoperitoneum however. There is mild dilatation of the small bowel likely an ileus in nature. A significant volume of ascitic fluid is noted. 2. Bibasilar atelectasis and bilateral pleural effusions. 3. Small pericardial effusion. 4. Small bilateral nonobstructing renal calculi. 5. I spoke with Dr. Sanchez concerning the findings. Osmar Chavez Jr., MD Abdomen X-Ray 12/18/15 0000 Signed Impressions: Service Date/Time: Friday, December 18, 2015 16:05 - CONCLUSION: Feeding tube tip is at the gastric antrum. Arnaldo Elias MD Chest CT 12/14/15 0000 Signed Impressions: Service Date/Time: Monday, December 14, 2015 06:12 - CONCLUSION: 1. Cardiomegaly with bilateral consolidation, likely CHF. Pneumonia cannot be excluded. 2. Small right pleural effusion. Wojciech Lockhart MD Head CT 12/02/15 1013 Signed Impressions: Service Date/Time: Wednesday, December 02, 2015 11:00 - CONCLUSION: 1. No intracranial abnormality is seen. 2. Air-fluid level in the right maxillary sinus. Arnaldo Reyes MD Physical Exam GENERAL: On vent , sedated appears toxic SKIN: + mild jaundice. Anasarca HEENT: no icterus, NO nasal drainage orally intubated NECK: Trachea midline. Supple, nontender. CARDIOVASCULAR: systolic murmur in base of heart RESPIRATORY/CHEST: + diffuse rhonchi on auscultation. Breath sounds equal bilaterally. GASTROINTESTINAL: Abdomen open with VAC in place and serosang dc black stool in rectal bag GENITOURINARY: Sandoval catheter in place with clear light yellow urine scrotum is mildly edematous. UOP is excellent 150cc/hr MUSCULOSKELETAL: Extremities no cyanosis, Edema significant 3+ NEUROLOGICAL: sedated, but makes eye contact when sedation is weaned down LINES: NO evidence of infection Assessment & Plan Remarks Sepsis related to Cdiff and Intra abdominal peritonitis. - sp subtotal colectomy Cdiff Colitis Noted Cdiff PCR is negative3/3 ? Zinc preparation in perianal care could cause false negative test. Path c/o Cdiff Colitis. Bowel perforation related Abdominal peritonitis. Of note patient has been on steroids prior to and since 12/19/15 which is risk factor for perforation. RUE severe nec fasc 2/2 MSSA - skin grafting was planned, but cancelled - S/P I and D x 3 - RUE infx clinically resolved MSSA bacteremia 2/2 RUE infx - resolved per d/w . E.coli bacteremia on presentation -source is likely gut Immunosuppressed on steroids, s/p splenectomy. PCN allergy, but no probs with Keflex per report. ARF/ DEIRDRE/ATN 2/2 sepsis -stable More stable hemodynamically today Patient is critically ill. Sp bleeding PLAN: Continue IV cefepime,flagyl IV, micafungin IV would recommend at least 7-10 day course to cover intra abdominal leak related peritonitis mine since this was in hospital perforation concern for health care related organisms. Continue Flagyl PO/intacolonic tx for C.diff is conraindicated (pt has sutured dital ileum and prox retained rectum P ileostomy): Albert Gutiérrez D/W RN Argelia Weber Dr, MD Dec 24, 2015 13:06
[2015-12-24] MEDS: VASOPRESSIN INJ 40 UNITS in DEXTROSE 5% IN WATER 100ML INJ 98 ML IV SCH ×2 (13:14)
[2015-12-24] MEDS: MICAFUNGIN INJ 150 MG in SODIUM CHLORIDE 0.9% INJ 100 ML IV SCH (14:00)
[2015-12-24] MEDS ORDERED: MIDAZOLAM HCL 5 MG/ML VIAL (1 ML) ONE (14:25)
--- NOTE | 2015-12-24 15:02 | HHI.CCPN ---
Subjective Remarks/Hospital Course 55-year-old male brought by EMS with altered mental status. He has been confused for 2 days but this morning has been the worst. He has history of chronic opiate medications including methadone and morphine that he takes for pain management and hence they gave him Narcan IV which brought the GCS up to 13. The blood glucose was 74. He has open wounds from his right upper and bilateral lower extremities. He has history of hepatitis C. Last week he was pealing and eating shrimps. Bedside blood sugar was 76 in the ER. He was tachycardic in 1 teens and was intubated in the ED for airway protection. Admitted to ICU with sepsis due to Staph Aureus hand infection and E. Coli bacteriemia. 12/05 Patient remains sedated with Fentanyl and intubated. On Levophed 3 mics, Vasopressin 0.03 mics and Bicarb drip. T:99.8 TF placed on hold OGT to LIWS last night - gastric drainage 525ml overnight. 12/06 Patient is sedated with Fentanyl and intubated, On Levophed 3 mics, off vasopressin. Gastric output 400ml in 24 hrs. KUB abdomen yesterday mildly distended colon otherwise non specific KUB. 12/07 Patient is off sedation remains intubated tolerated CPAP for most day yesterday. Afebrile. on no drips, tolerating tube feeds. 12/08 Patient went to OR yesterday for debridement and irrigation of right forearm and wound VAC placement. Given 2U PRBC and 2u PLT yesterday and currently receiving 1of 2 u additional PRBC. Hgb 7.7, PLT 43 this morning. Patient also started on pressors now on Levophed 10 mics. Vasopressin 0.04 mics. On no sedation. 12/09 Patient remains intubated off pressors, Afebrile. Tolerating tube feeds. Afebrile. 12/10 Patient is sedated with Fentanyl and intubated. Awake and follows commands off sedation. Afebrile. 12/11 Patient had ?SVT overnight given Lopressor 2.5mg IV x1, Remains intubated and sedated with Fentanyl. Afebrile. Tolerating TF. 12/12 Patient spoked fever last night with T: 101.5, sedated with Fentanyl and intubated. 12/13 Patient had an episode of desaturation overnight required increase FIO2/ PEE now on ACV with RR 14, TV 550, PEEP: 12, FIO2 60% with sats 100% CT chest performed overnight showed b/l consolidation and small pleural effusion. Had T: 100.0 last night. 12/14 Tolerating PS 15/CPAP 10 FiO2 40% with rSBI 38, weaning. . Awake and alert , following commands. Hypotensive overnight and levophed restarted up to 12 mcg/ min. Nurse has been weaning throughout the day. Suspected adrenal insufficiency as he was on prednisone as outpatient for gout and has not been on stress dose steroids. Given decadron. 12/15 Transfused 1 unit PRBC for Hgb 7.0 yesterday, 1 unit PRBC for Hgb 6.6 today and now Hgb 8.3. Does not clinically have e/o active GI bleeding and wound vac output nonbloody. Stool 1500 output, C diff negative. No abdominal pain. Remains Awake and alert, remained on CPAP 10/5 last night and is now tolerating CPAP 5/5. 12/16: Extubated yesterday tolerating well. Breathing comfortably. Able to follow commands. UO 1.8 L in 24 hours. Na slightly increased to 153. 12/17: Significantly worse this AM. WBC up to 28 from 16. Hgb 5.2 from 7.9. tachycardic. pale this AM. states he feels tired. Continues on BiPAP. Plan for debridement of his arms today. LIJ CVL does not have any signs of overt infection. 12/18: Blood cell count continues to rise today to 30 from 28. Required 1 unit of blood for hemoglobin of 6.6 which improved to 7.7 this morning. However, patient remains tachycardic in the 120s and significantly pale. CT abdomen and pelvis ordered and pending. Tachypneic with respiratory rate in the 30s. Only small amount of dark tarry stool yesterday with approximately 300 cc of stool output. C. difficile toxin negative 3. After discussion with infectious disease, restart vancomycin, cefepime, Flagyl, micafungin. Rey cultures are pending. Per discussion with GI, will not scope as endoscopy is high risk given his tenuous respiratory status this point. Slightly worse hypernatremia as well as worsening acute kidney injury this morning. 12/19: POD 1 s/p ex-lap, washout for perforated ascending colon with extended right hemicolectomy, primary ileocolic anastamosis, open abdomen, septic shock, acute hypoxic and hypercarbic respiratory failure. Significantly critically ill overnight: required 6L ivf resuscitation, 1 unit prbc, norepinephrine, vasopressin, stress dose hydrocortisone. This morning, remains on high-dose vasopressors. still has large volume ivf requirement. Significant SIRS response. Vent requirements increasing with all this volume resuscitation, PEEP up to 10. He remains critically ill, and although I do believe we have surgical source control, I anticipate he will continue to clinically decline before he starts to make improvements. 12/20: Off pressors. follows commands on sedation holiday. +11L over last 3 days during acute illness, +22L since admission. We are going to have to get some of this volume back before we are able to close him given his severe anasarca. 12/21: Taken back to the OR yesterday afternoon for washout and completion colectomy. Postoperatively was significantly under resuscitated as well as had ongoing active oozing. Patient was coagulopathy. The patient was in distributive and hemorrhagic shock. The patient was given multiple units of blood products overnight. Patient was thrombocytopenic, hypofibrinogenemic, coagulopathic. Given significant volume of blood product resuscitation: 24h blood products: 13 prbc 8 ffp 2 plt 1 10-pack cryo This morning continues to have significant amount of bright red output out of his BEV and wound VAC, approximately 500 cc an hour out of his wound VAC, and approximately 75 an mils every 10 minutes out of a BEV. I discussed with surgery and we will correct his coagulopathy and plan to go back to the OR for exploration early this afternoon. 12/22: Clinically starting to improve hemodynamically. off vasopressors. Net+ 26L. CVP rising to 14. UOP adequate. Hgb 7 this AM. 12/23 Seen postop. Hypertensive, BP improved with additional pain medicine. Remains net positive but urine output excellent 3L in 24 hours. Remains on Lasix gtt. went to OR today status post wound VAC change and partial closure Objective Vital Signs Date Time Temp Pulse Resp B/P Pulse Ox O2 Delivery O2 Flow Rate FiO2 12/24/15 14:00 98 137/89 12/24/15 14:00 98.1 22 100 12/24/15 14:00 40 Intake and Output 12/23/15 12/23/15 12/24/15 08:00 16:00 00:00 Intake Total 3361 ml 976 ml 1249 ml Output Total 1400 ml 1860 ml 1730 ml Balance 1961 ml -884 ml -481 ml Result Diagram: 12/24/15 0620 12/24/15 0620 Other Results Microbiology Date/Time Procedure Status Source Growth 12/21/15 15:07 Gram Stain - Final Complete Sputum Endotracheal 12/21/15 15:07 Sputum Culture - Final Complete Sputum Endotracheal LIGHT GROWTH NORMAL RESPIRATORY [facility] Imaging Last Impressions Chest X-Ray 12/17/15 0600 Signed Impressions: Service Date/Time: Thursday, December 17, 2015 03:25 - CONCLUSION: Persistent left lower lobe consolidation. Osmar Alegria MD Chest CT 12/14/15 0000 Signed Impressions: Service Date/Time: Monday, December 14, 2015 06:12 - CONCLUSION: 1. Cardiomegaly with bilateral consolidation, likely CHF. Pneumonia cannot be excluded. 2. Small right pleural effusion. Wojciech Lockhart MD Abdomen X-Ray 12/06/15 0000 Signed Impressions: Service Date/Time: November 09:53 - CONCLUSION: Nonspecific KUB. Air is seen within a mildly distended colon but contrast is clearly seen in the rectum. Arnaldo Reyes MD Abdomen/Pelvis CT 12/04/15 0000 Signed Impressions: Service Date/Time: Friday, December 04, 2015 16:24 - CONCLUSION: 1. Mildly distended small bowel in the mid and lower abdomen. Contrast is clearly seen extending into the distal small bowel and ascending colon so a complete obstruction is not seen. A transition point is not seen. This pattern likely represents an ileus versus a partial obstruction. 2. Multiple nonobstructing renal stones. 3. Abnormal appearance of the spleen which appears to represent a splenule. It could be correlated if the patient has had either primary splenic removal or splenic injury and this is what is either left of the spleen or a developing splenule. This is likely of no significance. 4. Mild ascites. 5. Increased density within the gallbladder representing either tumefactive sludge or noncalcified stones. 6. Mild bilateral pleural effusions with prominent areas of lower lobe atelectasis or consolidation at the bases bilaterally. 7. Subacute to chronic bilateral rib fractures and multiple compression fractures in the lower thoracic and lumbar spine as described above. The patient does have a prior CT examination from 08/26/2014. All the compression deformities described above are new when compared to that scan. Arnaldo Ryees MD Head CT 12/02/15 1013 Signed Impressions: Service Date/Time: Wednesday, December 02, 2015 11:00 - CONCLUSION: 1. No intracranial abnormality is seen. 2. Air-fluid level in the right maxillary sinus. Arnaldo Reyes MD Objective Remarks GENERAL: middle-aged male, lying in bed, intubated, sedated. critically ill. HEENT: anisocoric pupils L 6mm, R 5mm, reactive. mucous membranes moist. NECK: trachea midline. obese neck. difficult to assess JVD. left IJ triple lumen catheter in place, site is clean and dry without signs of erythema or drainage. RESPIRATORY: Intubated. Breath sounds equal bilaterally. coarse rales b/l. CARDIOVASCULAR:Tachycardic, regular without murmurs. GASTROINTESTINAL: Abdomen is left open with midline wound vac in place draining sanguinous output. BEV drain in left upper quadrant with sanguinous output. Rectal tube in place with melanic appearing stool. MUSCULOSKELETAL: Generalized anasarca. Multiple open wounds in the lower extremity. RUE - with wound vac in place. L upper extremity dressing in place. NEURO: RASS - 3. Not following commands today. 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 He has made improvements in his shock state. He is now severely volume overloaded given the large volume resuscitation he required for his shock. He also continues to have an DEIRDRE. We've made slight improvements in hemodynamics. However we are still grossly anasarca and volume overloaded. We need to start diuresing the patient with forced diuresis. This will be difficult given his ongoing acute kidney injury and the fact that I think that his renal function may be worsening and not improving. I have had numerous daily talks with his family about the fact that we may end up having to utilize renal replacement therapy in order to optimize his volume status and his abdomen closed and progress his care. I do not think we are at that point today. He still remains severely critically ill Neuro: Acute encephalopathy secondary to sepsis Acute pain secondary to multiple soft tissue infections Acute post-surgical pain Chronic pain -- continue tylenol 1gm IV q8h scheduled for pain. Check CMP in am -- holding oral opiates. -- remains off home methadone given renal function 12/23/15 methadone 30mg iv x 1 as a loading dose to help with acute on chronic pain. Certainly, given his varying renal clearance, scheduled methadone is not a good idea at this time, but a single loading dose of 0.3mg/ kg should be effective in pain control. -- dilaudid 0.5-2mg iv q4h prn for breakthrough pain. -- fentanyl infusion for goal RASS -2. -- d/cd ketamine drip 12/22. He should likely get the analgesic benefits of this infusion for another 72h given renal function and total volume of distribution of ketamine. Respiratory Acute respiratory failure-extubated 12/16/15, reintubated for surgery 12/18 Acute hypoxic and hypercarbic respiratory failure Acute healthcare associated pneumonia- resolved NIGEL on home CPAP --Extubated 12/15, reintubated for emergent ex-lap 12/18. ACV 550/18/10/45%. --Vent bundle --Head of bed at 30 degrees --Nebs q6h and q2h prn. --Does not meet SBT criteria today 2/2 acute volume overload and open abdomen. --CT chest 12/13 b/l consolidation with small right pleural effusion CV Septic Shock- resolving. Hemorrhagic shock- resolved. --Norepinephrine for map goal > 65 mmHg --Cortisol level was 14 on 12/14 -- stress dose steroids, hydrocortisone 50 q6h, change to 50 q12 starting today 12/24/15 --Echo 12/07 EF 65-70%, grade I diastolic dysfunction --continue to trend CVP. Renal: -DEIRDRE Hypernatremia- improving. Acute intravascular and total body volume overload --Cr stable today . continue Sandoval. -- likely he will continue to have ongoing renal insufficiency. He may need renal replacement at some point during this acute illness, but at present, he does not need this. Started on lasix 40mg iv x 1 and then lasix infusion at 20mg/hr. I will change to Bumex gtt 1 mg per hours --Norephinephrin to assist in forced diuresis. FEN/GI Acute protein calorie malnutrition- severe Hypokalemia perforated right colon with colitis Total body volume overload Intravascular hypervolemia Distributive Shock Anion Gap metabolic acidosis Open abdomen s/p ex-lap, extended right hemicolectomy with primary ileocolic anastamosis, washout, open abdomen (12/18) -- Strict NPO -- (TF recs per Nutrition Glucerna 1.5 at 60cc/hr) -- GI consulted for assistance in prior GI bleeding: Now signed off -- continue TPN -- ICU electrolyte protocol -- Daily BMP -- IV PPI BID -- s/p OR today with wound VAC change and partial closure Heme: Acute Anemia secondary to acute blood loss Thrombocytopenia Hypofibrinogenemia secondary to consumption and acute blood loss Coagulopathy secondary to consumption and acute blood loss --monitor CBC --Hep PLT ab negative on 12/03 -- d/c ferrous sulfate. -- Transfusion Triggers: Hgb < 7 INR > 2 Fibrinogen < 150 Plt < 100K with active bleeding. ID - Septic Shock - Necrotizing Fascitis - MSSA on wound culture 12/07. - Ecoli bacteremia 12/01 - MSSA bacteremia 12/05. Cleared on f/u blood culture 12/07, 12/12. Leukocytosis Sepsis of Intra-abdominal origin. C. difficile toxic megacolon -- Debridement 12/01 p.m at bedside by Dr Pedro and Dr. Hartmann -- R hand, forearm and olecrenon bursa I and D and Wound vac 12/07 Dr Chavez. Vancomycin, cefepime, Flagyl, micafungin started 12/17. --12/17 blood cultures: NGTD 12/17 central line culture: NGTD 12/17 urine cultures: NGTD 12/17 sputum cultures: NGTD C. difficile toxin 12/17: Negative (3rd negative toxin screen) -- ID Dr. Becerra Endocrine: Hyperglycemia of Critical Illness Diabetes Presumed acute adrenal insufficiency Continue insulin drip with every hour Accu-Cheks -- continue hydrocortisone 50mg iv q6h. we will consider tapering this once his abdomen is closed. Prophylaxis: GI Prophylaxis: -- Protonix 40mg IV BID. DVT Prophylaxis: -- SCDs --Continue to hold pharmacologic DVT prophylaxis in the setting of acute hemorrhage. Lines: --L IJ CVL placed 12/13. The patient has significantly poor IV access given his multiple wounds. After discussion with the infectious disease team, we are keeping this line in place because the site looks good and does not appear to be infected. We do have cultures that were drawn from the line that are NGTD. If these cultures turn positive, or he has signs of bacteremia, we will replace this line. -- Sandoval -- left axillary arterial line 12/18. Dispo: -- remain in the [facility]. He is severely critically ill. This patient remains critically ill with one or more organ systems which are or may become a threat to life. I have spent in excess of 42 minutes discontinuously in the care and management of this patient. This time is exclusive of procedures, and includes, but is not limited to, evaluation of the patient, review of the medical record, discussions with family, consultants, nursing staff, or respiratory therapy, and documentation in the medical record. Problem Qualifiers (1) Respiratory failure: Qualified Code: J96.00 - Acute respiratory failure, unspecified whether with hypoxia or hypercapnia (2) Altered mental status: Qualified Code: R41.0 - Delirium (3) Sepsis: Qualified Code: A41.9 - Sepsis, due to unspecified organism Audra Mcintosh MD Dec 24, 2015 15:02 (3) Sepsis: Qualified Code: A41.9 - Sepsis, due to unspecified organism Audra Mcintosh MD Dec 24, 2015 15:02
[2015-12-24] MEDS: BUMETANIDE INJ 100 ML IV SCH (16:24)
[2015-12-24] MEDS: POTASSIUM CHLORIDE IV-CENTRAL SCH ×9 (21:58)
[2015-12-24] MEDS: [UNRECOGNIZED DRUG - OTHER] IV-CENTRAL SCH ×9 (21:58)
[2015-12-24] MEDS: SODIUM ACETATE IV-CENTRAL SCH ×9 (21:58)
[2015-12-25] VITALS (16 sets, daily range): BP systolic 84–130; BP diastolic 56–88; PULSE 92–120; RESP 20; TEMP 97.5–99; O2SAT 99–100
[2015-12-25] MEDS: ACETAMINOPHEN 1000 MG/100 ML VIAL IV SCH ×2 (01:00→09:10)
[2015-12-25] MEDS: metroNIDAZOLE 500 MG INJ 100 ML IV SCH ×3 (04:00→20:37)
[2015-12-25] MEDS: HYDROCORTISONE SOD SUCCINATE 100 MG VIAL IV PUSH SCH ×3 (04:00→21:13)
[2015-12-25] MEDS: CHLORHEXIDINE GLUCONATE 2 % 1 PACK (2 CLOTHS) TOP SCH (04:00)
[2015-12-25] MEDS: CEFEPIME INJ 2,000 MG in SODIUM CHLORIDE 0.9% INJ 100 ML IV SCH ×2 (05:00→18:19)
--- NOTE | 2015-12-25 05:05 | RADRPT ---
EXAM DATE/TIME: 12/25/2015 04:18 [place] COMPARISON: CHEST SINGLE AP, December 19, 2015, 18:37. INDICATIONS : Respiratory distress. MEDICAL HISTORY : Hypertension. Hepatitis C. SURGICAL HISTORY : None. ENCOUNTER: Subsequent ACUITY: 4 - 6 days PAIN SCORE: Non-responsive. LOCATION: Bilateral chest FINDINGS: Endotracheal tube again noted. Left jugular line tip not well visualized. NG tube tip at the esophago gastric junction and should be advanced. There is hazy opacity of the left lung new from prior. A pre sumed surgical drain overlies the left upper quadrant. Right medial basilar consolidation. Overall im proved aeration on the right. CONCLUSION: Recent hazy opacity on the left may reflect a layering pleural effusion and consolidation. Improved a eration on the right. Arcadio Dickerson MD on December 25, 2015 at 5:02 Board Certified Radiologist. This report was verified electronically.
[2015-12-25 05:17] LABS: AUTOMATED NEUTROPHIL # 28.7 TH/MM3 (1.8-7.7); BASOPHIL # 0.1 TH/MM3 (0-0.2); BASOPHIL % 0.3 % (0.0-2.0); HEMATOCRIT 26.4 % (39.0-51.0); LYMPH % 5.8 % (9.0-44.0); MEAN CELL VOLUME 87.7 FL (80.0-100.0); NEUT % 83.9 % (16.0-70.0); PLATELET COUNT 112 TH/MM3 (150-450); RED BLOOD COUNT 3.01 MIL/MM3 (4.50-5.90); RED CELL DISTRIBUTION WIDTH 16.5 % (11.6-17.2); WHITE BLOOD COUNT 34.3 TH/MM3 (4.0-11.0)
[2015-12-25 05:45] LABS: HEMO FLAGS AUTO DIFF
[2015-12-25 05:46] LABS: ALKALINE PHOSPHATASE 156 U/L (45-117); ALT (GPT) 8 U/L (12-78); ANION GAP 10 MEQ/L (5-15); AST (GOT) 23 U/L (15-37); BICARBONATE 23.2 MEQ/L (21.0-32.0); BLOOD UREA NITROGEN 76 MG/DL (7-18); CHLORIDE 119 MEQ/L (98-107); GLOMERULAR FILTRATION RATE 44 ML/MIN (>89); SODIUM (NA) 152 MEQ/L (136-145); TOTAL BILIRUBIN ADULT 0.6 MG/DL (0.2-1.0)
[2015-12-25 05:48] LABS: POTASSIUM 2.8 MEQ/L (3.5-5.1)
[2015-12-25] MEDS: PANTOPRAZOLE SODIUM 40 MG VIAL IV PUSH SCH ×2 (06:00→17:37)
[2015-12-25] MEDS: CHLORHEXIDINE 0.12% (ORAL KIT) 15 ML CUP MT SCH ×2 (08:00→20:37)
[2015-12-25 08:58] LABS: BANDS 5 % (0-6); CORRECTED NUCLEATED RBC 9 /100 WBC (0-0); MYELOCYTES 2 % (0-0); NEUTROPHIL # MANUAL DIFF 30.2 TH/MM3 (1.8-7.7); POLYS (SEG NEUTROPHILS) 79 % (16-70); PROMYELOCYTES 2 % (0-0); WBC DIFF SAMPLE 100
[2015-12-25 08:59] LABS: PLATELET ESTIMATE SMEAR LOW (NORMAL); PLATELET MORPHOLOGY NORMAL (NORMAL); SCAN/DIFF FINAL DIFF MANUAL
[2015-12-25 09:00] LABS: POLYCHROMASIA 2.4 % (0.0-1.9)
[2015-12-25] MEDS: SODIUM CHLORIDE 0.9% FLUSH 5 ML FLUSH IVF PRN (09:11)
--- NOTE | 2015-12-25 10:35 | HHI.PR ---
Subjective Subjective Notes DAILY PROGRESS NOTE FOR SURGICAL ATTENDING, DR. NOMI MILLER Intubated/Sedated Objective Vitals/I&O Vital Signs Date Time Temp Pulse Resp B/P Pulse Ox O2 Delivery O2 Flow Rate FiO2 12/25/15 08:16 100 40 12/25/15 08:00 97.5 100 20 112/78 Labs Laboratory Tests Test 12/25/15 04:45 White Blood Count 34.3 Red Blood Count 3.01 Hemoglobin 8.7 Hematocrit 26.4 Mean Corpuscular Volume 87.7 Mean Corpuscular Hemoglobin 29.0 Mean Corpuscular Hemoglobin 33.0 Concent Red Cell Distribution Width 16.5 Platelet Count 112 Mean Platelet Volume 11.1 Neutrophils (%) (Auto) 83.9 Lymphocytes (%) (Auto) 5.8 Monocytes (%) (Auto) 10.0 Eosinophils (%) (Auto) 0.0 Basophils (%) (Auto) 0.3 Neutrophils # (Auto) 28.7 Lymphocytes # (Auto) 2.0 Monocytes # (Auto) 3.4 Eosinophils # (Auto) 0.0 Basophils # (Auto) 0.1 CBC Comment AUTO DIFF Differential Total Cells 100 Counted Neutrophils % (Manual) 79 Band Neutrophils % 5 Lymphocytes % 3 Monocytes % 9 Neutrophils # (Manual) 30.2 Myelocytes 2 Promyelocytes 2 Nucleated Red Blood Cells 9 Differential Comment FINAL DIFF MANUAL Platelet Estimate LOW Platelet Morphology Comment NORMAL Polychromasia 2.4 Basophilic Stippling FAINT Sodium Level 152 Potassium Level 2.8 Chloride Level 119 Carbon Dioxide Level 23.2 Anion Gap 10 Blood Urea Nitrogen 76 Creatinine 1.65 Estimat Glomerular Filtration 44 Rate Random Glucose 138 Calcium Level 7.6 Magnesium Level 2.0 Total Bilirubin 0.6 Aspartate Amino Transf 23 (AST/SGOT) Alanine Aminotransferase 8 (ALT/SGPT) Alkaline Phosphatase 156 Total Protein 3.9 Albumin 1.2 Date/Time Procedure Status Source Growth 12/21/15 15:07 Gram Stain - Final Complete Sputum Endotracheal 12/21/15 15:07 Sputum Culture - Final Complete Sputum Endotracheal LIGHT GROWTH NORMAL RESPIRATORY [facility] Cardiovascular: Regular Lungs: Clear Abdomen: Other (wound vac in place (midline) with good seal; G/J tubes in place ; BEV with SS drainage ) Narrative Exam RIGHT arm with wound vac on Several abrasions with non adherent dressing in place A/P Problem List: (1) Dependent on ventilator (2) Open wound of abdomen (3) Ileostomy in place (4) Jejunostomy tube present (5) S/P total colectomy (6) Acute colitis (7) Gastrostomy tube in place Assessment and Plan 55 year old male s/p ex lap; s/p colectomy; G/J tube placement and would vac change -Plan to change Wound Vac at bedside weds -Likely needs tracheostomy placement which I spoke with family about and they are agreeable -RIGHT arm wound vac per Dr. Pedro -NPO -PT/OT -TPN Attending Statement NOTE FOR SURGICAL ATTENDING, DR. NOMI MILLER I agree with above assessment and plan. The exam, history, and the medical decision-making described in the above note were completed with the assistance of the mid-level provider. I reviewed and agree with the findings presented. I attest that I had a [id number] encounter with the patient on the same day, and personally performed and documented my assessment and findings in the medical record. Patient seen in the intensive care unit on ventilator Discussed with Dr. Mcintosh rn emergency room DC rectal bag Start tube feeding Patient is ventilator dependent and will plan tracheostomy on at 1:30 The following services were provided during this hospital visit: Chart data review, vital sign assessments/reviewing monitor data Review of consultations notes if present. Medication orders/review and/or management Ordering and/or reviewing lab tests Ordering and/or interpreting/reviewing x-rays and/or diagnostic studies Care of the patient and discussion of the patient with the care team Documentation time To help prompt me to consider important information that might be impacting today's encounter and assessment, information from prior notes written by myself or my colleagues may have been "brought forward/copy and pasted" into today's note. Problem Qualifiers (1) Open wound of abdomen: Qualified Code: S31.109D - Open wound of abdomen, subsequent encounter Lurdes Felix Dec 25, 2015 10:35 Nomi Miller MD Dec 25, 2015 11:41
[2015-12-25] MEDS: BUMETANIDE INJ 100 ML IV SCH (12:32)
--- NOTE | 2015-12-25 12:49 | HHI.CCPN ---
Subjective Remarks/Hospital Course 55-year-old male brought by EMS with altered mental status. He has been confused for 2 days but this morning has been the worst. He has history of chronic opiate medications including methadone and morphine that he takes for pain management and hence they gave him Narcan IV which brought the GCS up to 13. The blood glucose was 74. He has open wounds from his right upper and bilateral lower extremities. He has history of hepatitis C. Last week he was pealing and eating shrimps. Bedside blood sugar was 76 in the ER. He was tachycardic in 1 teens and was intubated in the ED for airway protection. Admitted to ICU with sepsis due to Staph Aureus hand infection and E. Coli bacteriemia. 12/05 Patient remains sedated with Fentanyl and intubated. On Levophed 3 mics, Vasopressin 0.03 mics and Bicarb drip. T:99.8 TF placed on hold OGT to LIWS last night - gastric drainage 525ml overnight. 12/06 Patient is sedated with Fentanyl and intubated, On Levophed 3 mics, off vasopressin. Gastric output 400ml in 24 hrs. KUB abdomen yesterday mildly distended colon otherwise non specific KUB. 12/07 Patient is off sedation remains intubated tolerated CPAP for most day yesterday. Afebrile. on no drips, tolerating tube feeds. 12/08 Patient went to OR yesterday for debridement and irrigation of right forearm and wound VAC placement. Given 2U PRBC and 2u PLT yesterday and currently receiving 1of 2 u additional PRBC. Hgb 7.7, PLT 43 this morning. Patient also started on pressors now on Levophed 10 mics. Vasopressin 0.04 mics. On no sedation. 12/09 Patient remains intubated off pressors, Afebrile. Tolerating tube feeds. Afebrile. 12/10 Patient is sedated with Fentanyl and intubated. Awake and follows commands off sedation. Afebrile. 12/11 Patient had ?SVT overnight given Lopressor 2.5mg IV x1, Remains intubated and sedated with Fentanyl. Afebrile. Tolerating TF. 12/12 Patient spoked fever last night with T: 101.5, sedated with Fentanyl and intubated. 12/13 Patient had an episode of desaturation overnight required increase FIO2/ PEE now on ACV with RR 14, TV 550, PEEP: 12, FIO2 60% with sats 100% CT chest performed overnight showed b/l consolidation and small pleural effusion. Had T: 100.0 last night. 12/14 Tolerating PS 15/CPAP 10 FiO2 40% with rSBI 38, weaning. . Awake and alert , following commands. Hypotensive overnight and levophed restarted up to 12 mcg/ min. Nurse has been weaning throughout the day. Suspected adrenal insufficiency as he was on prednisone as outpatient for gout and has not been on stress dose steroids. Given decadron. 12/15 Transfused 1 unit PRBC for Hgb 7.0 yesterday, 1 unit PRBC for Hgb 6.6 today and now Hgb 8.3. Does not clinically have e/o active GI bleeding and wound vac output nonbloody. Stool 1500 output, C diff negative. No abdominal pain. Remains Awake and alert, remained on CPAP 10/5 last night and is now tolerating CPAP 5/5. 12/16: Extubated yesterday tolerating well. Breathing comfortably. Able to follow commands. UO 1.8 L in 24 hours. Na slightly increased to 153. 12/17: Significantly worse this AM. WBC up to 28 from 16. Hgb 5.2 from 7.9. tachycardic. pale this AM. states he feels tired. Continues on BiPAP. Plan for debridement of his arms today. LIJ CVL does not have any signs of overt infection. 12/18: Blood cell count continues to rise today to 30 from 28. Required 1 unit of blood for hemoglobin of 6.6 which improved to 7.7 this morning. However, patient remains tachycardic in the 120s and significantly pale. CT abdomen and pelvis ordered and pending. Tachypneic with respiratory rate in the 30s. Only small amount of dark tarry stool yesterday with approximately 300 cc of stool output. C. difficile toxin negative 3. After discussion with infectious disease, restart vancomycin, cefepime, Flagyl, micafungin. Rey cultures are pending. Per discussion with GI, will not scope as endoscopy is high risk given his tenuous respiratory status this point. Slightly worse hypernatremia as well as worsening acute kidney injury this morning. 12/19: POD 1 s/p ex-lap, washout for perforated ascending colon with extended right hemicolectomy, primary ileocolic anastamosis, open abdomen, septic shock, acute hypoxic and hypercarbic respiratory failure. Significantly critically ill overnight: required 6L ivf resuscitation, 1 unit prbc, norepinephrine, vasopressin, stress dose hydrocortisone. This morning, remains on high-dose vasopressors. still has large volume ivf requirement. Significant SIRS response. Vent requirements increasing with all this volume resuscitation, PEEP up to 10. He remains critically ill, and although I do believe we have surgical source control, I anticipate he will continue to clinically decline before he starts to make improvements. 12/20: Off pressors. follows commands on sedation holiday. +11L over last 3 days during acute illness, +22L since admission. We are going to have to get some of this volume back before we are able to close him given his severe anasarca. 12/21: Taken back to the OR yesterday afternoon for washout and completion colectomy. Postoperatively was significantly under resuscitated as well as had ongoing active oozing. Patient was coagulopathy. The patient was in distributive and hemorrhagic shock. The patient was given multiple units of blood products overnight. Patient was thrombocytopenic, hypofibrinogenemic, coagulopathic. Given significant volume of blood product resuscitation: 24h blood products: 13 prbc 8 ffp 2 plt 1 10-pack cryo This morning continues to have significant amount of bright red output out of his BEV and wound VAC, approximately 500 cc an hour out of his wound VAC, and approximately 75 an mils every 10 minutes out of a BEV. I discussed with surgery and we will correct his coagulopathy and plan to go back to the OR for exploration early this afternoon. 12/22: Clinically starting to improve hemodynamically. off vasopressors. Net+ 26L. CVP rising to 14. UOP adequate. Hgb 7 this AM. 12/23 Seen postop. Hypertensive, BP improved with additional pain medicine. Remains net positive but urine output excellent 3L in 24 hours. Remains on Lasix gtt. went to OR today status post wound VAC change and partial closure 12/24: Fascia was closed yesterday. Wound Vac in place. Remains sedated. -2L negative balance, but with increasing BUN/creat. Discontinue Bumex infusion, start scheduled Bumex 2 mg IV every 12 with IV albumin. Objective Vital Signs Date Time Temp Pulse Resp B/P Pulse Ox O2 Delivery O2 Flow Rate FiO2 12/25/15 11:54 99 40 12/25/15 08:00 97.5 100 20 112/78 Intake and Output 12/24/15 12/24/15 12/25/15 08:00 16:00 00:00 Intake Total 1469 ml 1231 ml 838 ml Output Total 2060 ml 2275 ml 1120 ml Balance -591 ml -1044 ml -282 ml Result Diagram: 12/25/155 12/25/15 0445 Imaging Last Impressions Chest X-Ray 12/17/15 0600 Signed Impressions: Service Date/Time: Thursday, December 17, 2015 03:25 - CONCLUSION: Persistent left lower lobe consolidation. Osmar Alegria MD Chest CT 12/14/15 0000 Signed Impressions: Service Date/Time: Monday, December 14, 2015 06:12 - CONCLUSION: 1. Cardiomegaly with bilateral consolidation, likely CHF. Pneumonia cannot be excluded. 2. Small right pleural effusion. Wojciech Lockhart MD Abdomen X-Ray 12/06/15 0000 Signed Impressions: Service Date/Time: November 09:53 - CONCLUSION: Nonspecific KUB. Air is seen within a mildly distended colon but contrast is clearly seen in the rectum. Arnaldo Reyes MD Abdomen/Pelvis CT 12/04/15 0000 Signed Impressions: Service Date/Time: Friday, December 04, 2015 16:24 - CONCLUSION: 1. Mildly distended small bowel in the mid and lower abdomen. Contrast is clearly seen extending into the distal small bowel and ascending colon so a complete obstruction is not seen. A transition point is not seen. This pattern likely represents an ileus versus a partial obstruction. 2. Multiple nonobstructing renal stones. 3. Abnormal appearance of the spleen which appears to represent a splenule. It could be correlated if the patient has had either primary splenic removal or splenic injury and this is what is either left of the spleen or a developing splenule. This is likely of no significance. 4. Mild ascites. 5. Increased density within the gallbladder representing either tumefactive sludge or noncalcified stones. 6. Mild bilateral pleural effusions with prominent areas of lower lobe atelectasis or consolidation at the bases bilaterally. 7. Subacute to chronic bilateral rib fractures and multiple compression fractures in the lower thoracic and lumbar spine as described above. The patient does have a prior CT examination from 08/26/2014. All the compression deformities described above are new when compared to that scan. Arnaldo Reyes MD Head CT 12/02/15 1013 Signed Impressions: Service Date/Time: Wednesday, December 02, 2015 11:00 - CONCLUSION: 1. No intracranial abnormality is seen. 2. Air-fluid level in the right maxillary sinus. Arnaldo Reyes MD Objective Remarks GENERAL: middle-aged male, lying in bed, intubated, sedated. critically ill. HEENT: anisocoric pupils L 6mm, R 5mm, reactive. mucous membranes moist. NECK: trachea midline. obese neck. difficult to assess JVD. left IJ triple lumen catheter in place, site is clean and dry without signs of erythema or drainage. RESPIRATORY: Intubated. Breath sounds equal bilaterally. coarse rales b/l. CARDIOVASCULAR:Tachycardic, regular without murmurs. GASTROINTESTINAL: Abdomen fascia is closed midline wound vac in place draining sanguinous output. BEV drain in left upper quadrant with sanguinous output. MUSCULOSKELETAL: Generalized anasarca. Multiple open wounds in the lower extremity. RUE - with wound vac in place. L upper extremity dressing in place. NEURO: RASS - 3. 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 He has made improvements in his shock state. He is now severely volume overloaded given the large volume resuscitation he required for his shock. He also continues to have an DEIRDRE. We've made slight improvements in hemodynamics. However we are still grossly anasarca and volume overloaded. We need to start diuresing the patient with forced diuresis. This will be difficult given his ongoing acute kidney injury and the fact that I think that his renal function may be worsening and not improving. I have had numerous daily talks with his family about the fact that we may end up having to utilize renal replacement therapy in order to optimize his volume status and his abdomen closed and progress his care. I do not think we are at that point today. He still remains severely critically ill Neuro: Acute encephalopathy secondary to sepsis Acute pain secondary to multiple soft tissue infections Acute post-surgical pain Chronic pain -- Change to PRN Tylenol 1gm IV q8h scheduled for pain. CMP in am -- Dilaudid 0.5-2mg iv q4h prn for breakthrough pain. -- fentanyl infusion for goal RASS -2. -- d/cd ketamine drip 12/22. -- holding oral opiates. -- remains off home methadone given renal function 12/23/15 methadone 30mg iv x 1 as a loading dose to help with acute on chronic pain. Certainly, given his varying renal clearance, scheduled methadone is not a good idea at this time, but a single loading dose of 0.3mg/ kg should be effective in pain control. Respiratory Acute respiratory failure-extubated 12/16/15, reintubated for surgery 12/18 Acute hypoxic and hypercarbic respiratory failure Acute healthcare associated pneumonia- resolved NIGEL on home CPAP --Extubated 12/15, reintubated for emergent ex-lap 12/18. ACV 550/18/10/45%. --Vent bundle --Head of bed at 30 degrees --Nebs q6h and q2h prn. --Start SBT today. But with his critical illness and ongoing surgical procedures (abdomen completed but will need OR for hand) --CT chest 12/13 b/l consolidation with small right pleural effusion CV Septic Shock- resolved Hemorrhagic shock- resolved. Volume overload --Norepinephrine for map goal > 65 mmHg. now weaned off --Cortisol level was 14 on 12/14 --Stress dose steroids, hydrocortisone 50 q6h, change to 50 q12 starting today 12/25/15 --Echo 12/07 EF 65-70%, grade I diastolic dysfunction --continue to trend CVP. Renal: DEIRDRE Hypernatremia- improving. Acute intravascular and total body volume overload --Cr slightly increasing discontinue Bumex infusion and start Bumex 2 mg IV every 12 hours with IV albumin -- He may need renal replacement at some point during this acute illness, but at present, he does not need this. Lasix infusion discontinued 12/24/15. Bumex infusion discontinued 12/25/15 FEN/GI Acute protein calorie malnutrition- severe Hypokalemia perforated right colon with colitis Total body volume overload Intravascular hypervolemia Distributive Shock Anion Gap metabolic acidosis Open abdomen s/p ex-lap, extended right hemicolectomy with primary ileocolic anastamosis, washout, open abdomen (12/18) -- Start trickle feeds per surgery, continue TPN. (TF recs per Nutrition Glucerna 1.5 at 60cc/hr) -- GI consulted for assistance in prior GI bleeding: Now signed off -- ICU electrolyte protocol -- Daily BMP -- IV PPI BID -- s/p OR today with wound VAC change and fascial closure. Heme: Acute Anemia secondary to acute blood loss Thrombocytopenia Hypofibrinogenemia secondary to consumption and acute blood loss Coagulopathy secondary to consumption and acute blood loss --monitor CBC --Hep PLT ab negative on 12/03 -- d/c ferrous sulfate. -- Transfusion Triggers: Hgb < 7 INR > 2 Fibrinogen < 150 Plt < 100K with active bleeding. ID - Septic Shock - Necrotizing Fascitis - MSSA on wound culture 12/07. - Ecoli bacteremia 12/01 - MSSA bacteremia 12/05. Cleared on f/u blood culture 12/07, 12/12. --Leukocytosis --Sepsis of Intra-abdominal origin. --C. difficile toxic megacolon -- Debridement 12/01 p.m at bedside by Dr Pedro and Dr. Hartmann -- R hand, forearm and olecrenon bursa I and D and Wound vac 12/07 Dr Chavez. -- Continue IV cefepime,flagyl IV, micafungin. PO/intacolonic treatment for C.diff is conraindicated as the patient has sutured dital ileum and prox retained rectum P ileostomy --12/17 blood cultures: NGTD 12/17 central line culture: NGTD 12/17 urine cultures: NGTD 12/17 sputum cultures: NGTD C. difficile toxin 12/17: Negative (3rd negative toxin screen) -- ID Dr. Becerra Endocrine: Hyperglycemia of Critical Illness Diabetes Presumed acute adrenal insufficiency DC insulin drip with.Add 20 U instulin to TPN and Moderate SSI. every 3 Accu- Cheks -- continue hydrocortisone 50mg iv q12h. we will consider tapering this once his abdomen is closed. Prophylaxis: GI Prophylaxis: -- Protonix 40mg IV BID. DVT Prophylaxis: -- SCDs --Receiving Lovenox 30 mg subcutaneous daily Lines: --L IJ CVL placed 12/13. The patient has significantly poor IV access given his multiple wounds. After discussion with the infectious disease team, we are keeping this line in place because the site looks good and does not appear to be infected. We do have cultures that were drawn from the line that are NGTD. If these cultures turn positive, or he has signs of bacteremia, we will replace this line. -- Sandoval -- left axillary arterial line 12/18. Dispo: -- remain in the [facility]. He is severely critically ill. This patient remains critically ill with one or more organ systems which are or may become a threat to life. I have spent in excess of 40 minutes discontinuously in the care and management of this patient. This time is exclusive of procedures, and includes, but is not limited to, evaluation of the patient, review of the medical record, discussions with family, consultants, nursing staff, or respiratory therapy, and documentation in the medical record. Problem Qualifiers (1) Respiratory failure: Qualified Code: J96.00 - Acute respiratory failure, unspecified whether with hypoxia or hypercapnia (2) Altered mental status: Qualified Code: R41.0 - Delirium (3) Sepsis: Qualified Code: A41.9 - Sepsis, due to unspecified organism Audra Mcintosh MD Dec 25, 2015 12:49 Audra Mcintosh MD Dec 25, 2015 12:49
[2015-12-25] MEDS: ALBUMIN HUMAN 25% 25 GM/100 ML BAGP IV SCH (13:00)
[2015-12-25] MEDS ORDERED: DEXTROSE 50% IN WATER 50 ML VIAL(D50) IV PRN (13:00)
[2015-12-25] MEDS ORDERED: GLUCAGON 1 MG/ML VIAL OTHER PRN (13:00)
[2015-12-25] MEDS: MICAFUNGIN INJ 150 MG in SODIUM CHLORIDE 0.9% INJ 100 ML IV SCH (14:00)
[2015-12-25] MEDS ORDERED: ENOXAPARIN SODIUM 30 MG/0.3 ML SYRINGE SQ SCH (14:00)
[2015-12-25] MEDS ORDERED: BUMETANIDE INJ 1 MG/4 ML VIAL IV PUSH SCH (18:00)
--- NOTE | 2015-12-25 18:54 | MP ---
cc: NOMI MILLER M.D. DATE OF SURGERY: 12/21/2015. PREOPERATIVE DIAGNOSIS: Open abdomen with sepsis from previous right colon resection for ischemia. POSTOPERATIVE DIAGNOSIS: Further ischemia of the transverse, splenic flexure and descending colon. OPERATIVE PROCEDURE PERFORMED: 1. Exploratory laparotomy. 2. Removal of VAC dressing. 3. Subtotal colectomy. 4. Removal of accessory spleen. 5. Takedown of splenic flexure. 6. Placement of drain in the pancreas along the tail. SURGEON: Nomi Miller MD. MEDICAL RECORD CLERK: SARA Loya. The ELECTRICIAN SOUND was present from beginning to the end of the case assisting in all portions of the procedure. It was necessary to have this individual in the room to assist in the above surgical procedure. The surgical procedure was assisted by the ELECTRICIAN SOUND. The ELECTRICIAN SOUND presence was necessary throughout the case for appropriate retraction, dissection, visualization, and resection of the important anatomical structures during the surgical procedure. The ELECTRICIAN SOUND was assisting throughout the entirety of the operation. The skill set of the ELECTRICIAN SOUND is medically and surgically necessary to safely complete the surgical procedure. During the surgical case, the operating room plastic surgery technician was working instrument table and passing instruments to the attending surgeon and ELECTRICIAN SOUND. The ELECTRICIAN SOUND was directly assisting the operating surgeon and involved in the technical aspects of the surgical case. ANESTHESIA: General. INDICATIONS FOR THE PROCEDURE: This is an unfortunate 55-year-old gentleman who a couple days ago had undergone exploratory laparotomy for free air . It was found that his right colon was ischemic and had perforated. Subsequent to that, the pathology report read, "this colon looks like it most likely represents pseudomembranous colitis from C. Difficile". Plans were made for a planned second-look operation to evaluate his small bowel and the remainder of his colon. I had discussion with the family about further surgery, further colon resection. Initially we were going to place a feeding tube at this setting but because of his clinical status, this could not be done. DESCRIPTION OF THE PROCEDURE IN DETAIL: The patient was taken to the operating room and placed in the supine position. We placed him under anesthesia. He had previously been intubated. The VAC device was removed. The abdomen was prepped with Betadine. Time out was done. Examined the distal ileum and appeared pink and peristaltic. We replaced the Dobbhoff tube with an OG tube to decompress the stomach. The transverse colon was ischemic and green. He had the previous splenectomy. He had numerous accessory spleens along the splenic flexure which was taken down with some difficulty because of the amount of adhesions and the fact that the colon was very ischemic and indurated and adherent to the surrounding structures. It somewhat fell apart and was taken out in three different pieces; I imagine because of this infection and because of the steroid use. The white line of Toldt was taken down as far down as we could get and the contour was used to staple off the distal sigmoid. We were then able to dissect all the way up to the splenic flexure and remove portions of the colon piecemeal. We dissected up where the colon was stuck along the old splenic flexure in the tail of the spleen. Unfortunately the tail of the spleen appeared to possibly be inflamed from the process and the dissection. Once all the colon was removed, we then irrigated copiously. There was some bleeding up around the tail of the pancreas, and for this reason, a drain was placed in the pancreas along the body and the tail and brought out through a separate stab wound incision in the left upper quadrant. We then reassured that the OG-tube was in the stomach. We did milk some of the contents of the small bowel back into the stomach. I then replaced the terminal ileum in the midline in hopes that next week we could possibly bring up the ileostomy. He had received 2 units of blood and because of his clinical condition and the swelling, we placed the VAC device with the blue limbs into the retroperitoneum and placed it back up to the suction device after irrigating copiously. The patient remained in condition and returned to the intensive care unit. MD MEREDITH Ferguson/BIANCA /6:11 PM /7:43 PM SANDRA
[2015-12-25] MEDS: INSULIN ASPART SUPPLEMENTAL SCALE SQ SCH ×2 (20:00→23:17)
[2015-12-25] MEDS ORDERED: LACTATED RINGER'S 1000 ML INJ 500 ML IV ONE (20:30)
[2015-12-25] MEDS: POTASSIUM CHLORIDE IV-CENTRAL SCH ×10 (20:36)
[2015-12-25] MEDS: SODIUM ACETATE IV-CENTRAL SCH ×10 (20:36)
[2015-12-25] MEDS: [UNRECOGNIZED DRUG - OTHER] IV-CENTRAL SCH ×10 (20:36)
--- NOTE | 2015-12-25 21:08 | MP ---
cc: WILIAM MILLER M.D. DATE OF SURGERY 12/22/15 PREOPERATIVE DIAGNOSIS Postop bleeding. POSTOPERATIVE DIAGNOSIS Postop bleeding from short gastric, generalized coagulopathy, oozing from the omentum, oozing around the splenic vein, oozing from undersurface of diaphragm. PROCEDURE exploratory lap abd wash out oversew splenic vein stop bleeding from short gastrics reaplication of vac replacement of pancreatic drain ANESTHESIA General SURGEON Dr. Kenny Miller INDICATIONS This is an unfortunate 55 old gentleman who underwent a subtotal colectomy for what appears to be C. Diff and ischemic necrotic bowel. He had developed severe anemia and oozing from the VAC dressing and the BEV. Once his coagulopathy was corrected by Dr. Chavez, the maintenance parts technician, plans were made for exploration. PROCEDURE IN DETAIL The patient taken to the operating room. His VAC device is removed. Time-out is done. We systematically packed the abdomen in four quadrants. There is fair amount of clot on the surface of the abdomen. Down in the pelvis, there is no active bleeding, just oozing from where the subtotal colectomy was done. This is stopped with electrocautery device. No bleeding in the right lower quadrant or left upper quadrant. The clot is removed from this area. In the left upper quadrant after exploration, it appeared that short gastric vein was oozing and this was tied off with a silk suture. The undersurface of the diaphragm just had a generalized ooze which was stopped with electrocautery device. Around his remnant of the splenic vein from his previous splenectomy many years ago was oozing as well as the tip of the pancreas where a drain had been placed. The splenic vein was dissected out and ligated with two big hemoclips. We then placed a combination of Sahil with snow and Tisseel into the bed where there was a slight ooze and pressure was held for about 5 minutes and, after this was done, it is quite hemostatic. Drain was on the pancreas. After the pancreas was cleaned, it was placed near the tip of the pancreas for drainage of the pancreas. The NG tube was then repositioned into the stomach. We then placed the VAC device in typical fashion as we will return him to the operating room on Thursday to attempt to bring up an ileostomy and possibly close a portion of his abdomen depending on his clinical condition. Findings were discussed with Dr. Chavez, the maintenance parts technician. The patient remained in critical condition and will be returning to the ICU. He did receive 1 unit of blood during the procedure. MD MEREDITH Ferguson/ /4:42 PM /10:00 PM MTDJamia
[2015-12-25] MEDS: NOREPINEPHRINE-DEXTROSE DRIP 250 ML IV SCH (22:39)
[2015-12-26] VITALS (20 sets, daily range): BP systolic 89–131; BP diastolic 54–94; PULSE 97–122; RESP 20–22; TEMP 97.3–99; O2SAT 99–100
[2015-12-26] MEDS: ALBUMIN HUMAN 25% 25 GM/100 ML BAGP IV SCH ×2 (00:24→12:47)
[2015-12-26] MEDS: INSULIN ASPART SUPPLEMENTAL SCALE SQ SCH ×3 (02:43→08:02)
[2015-12-26] MEDS: metroNIDAZOLE 500 MG INJ 100 ML IV SCH ×3 (03:26→19:48)
[2015-12-26] MEDS: CHLORHEXIDINE GLUCONATE 2 % 1 PACK (2 CLOTHS) TOP SCH (03:26)
[2015-12-26] MEDS: NOREPINEPHRINE-DEXTROSE DRIP 250 ML IV SCH ×3 (04:08→17:18)
[2015-12-26] MEDS: CEFEPIME INJ 2,000 MG in SODIUM CHLORIDE 0.9% INJ 100 ML IV SCH ×2 (05:10→17:18)
[2015-12-26] MEDS: PANTOPRAZOLE SODIUM 40 MG VIAL IV PUSH SCH (05:10)
[2015-12-26 05:36] LABS: AUTOMATED NEUTROPHIL # 22.3 TH/MM3 (1.8-7.7); BASOPHIL # 0.1 TH/MM3 (0-0.2); BASOPHIL % 0.2 % (0.0-2.0); LYMPH % 11.5 % (9.0-44.0); LYMPHOCYTE # 3.4 TH/MM3 (1.0-4.8); MEAN CELL VOLUME 91.7 FL (80.0-100.0); MEAN CORPUSCULAR HEMOGLOBIN 28.5 PG (27.0-34.0); MEAN CORPUSCULAR HGB CONC 31.1 % (32.0-36.0); MONO % 13.3 % (0.0-8.0); PLATELET COUNT 116 TH/MM3 (150-450); RED BLOOD COUNT 1.51 MIL/MM3 (4.50-5.90); RED CELL DISTRIBUTION WIDTH 16.9 % (11.6-17.2); WHITE BLOOD COUNT 29.7 TH/MM3 (4.0-11.0)
[2015-12-26 05:41] LABS: HEMO FLAGS AUTO DIFF
[2015-12-26 05:43] LABS: HEMATOCRIT 13.9 % (39.0-51.0)
[2015-12-26 06:00] LABS: ALKALINE PHOSPHATASE 135 U/L (45-117); ALT (GPT) 8 U/L (12-78); ANION GAP 13 MEQ/L (5-15); AST (GOT) 19 U/L (15-37); BICARBONATE 20.2 MEQ/L (21.0-32.0); BLOOD UREA NITROGEN 90 MG/DL (7-18); CHLORIDE 119 MEQ/L (98-107); GLOMERULAR FILTRATION RATE 38 ML/MIN (>89); POTASSIUM 3.8 MEQ/L (3.5-5.1); SODIUM (NA) 152 MEQ/L (136-145); TOTAL BILIRUBIN ADULT 0.6 MG/DL (0.2-1.0)
[2015-12-26 06:16] LABS: BASOPHIL # 0.1 TH/MM3 (0-0.2); BASOPHIL % 0.2 % (0.0-2.0); LYMPHOCYTE # 3.6 TH/MM3 (1.0-4.8); MEAN CORPUSCULAR HEMOGLOBIN 28.9 PG (27.0-34.0); MEAN CORPUSCULAR HGB CONC 31.4 % (32.0-36.0); MONO % 14.3 % (0.0-8.0); NEUT % 73.5 % (16.0-70.0); PLATELET COUNT 112 TH/MM3 (150-450); RED BLOOD COUNT 1.42 MIL/MM3 (4.50-5.90); RED CELL DISTRIBUTION WIDTH 16.9 % (11.6-17.2)
[2015-12-26 06:20] LABS: HEMO FLAGS AUTO DIFF
[2015-12-26 06:58] LABS: BANDS 4 % (0-6); CORRECTED NUCLEATED RBC 3 /100 WBC (0-0); METAMYELOCYTES 2 % (0-1); MYELOCYTES 2 % (0-0); NEUTROPHIL # MANUAL DIFF 22.8 TH/MM3 (1.8-7.7); POLYS (SEG NEUTROPHILS) 68 % (16-70); WBC DIFF SAMPLE 100
[2015-12-26 06:59] LABS: PLATELET ESTIMATE SMEAR LOW (NORMAL); PLATELET MORPHOLOGY NORMAL (NORMAL); POLYCHROMASIA 3.3 % (0.0-1.9); SCAN/DIFF FINAL DIFF MANUAL
[2015-12-26 07:20] LABS: CORRECTED NUCLEATED RBC 7 /100 WBC (0-0); MYELOCYTES 4 % (0-0); NEUTROPHIL # MANUAL DIFF 23.2 TH/MM3 (1.8-7.7); POLYS (SEG NEUTROPHILS) 74 % (16-70); WBC DIFF SAMPLE 100
[2015-12-26 07:21] LABS: PLATELET ESTIMATE SMEAR LOW (NORMAL); PLATELET MORPHOLOGY NORMAL (NORMAL); POLYCHROMASIA 3.7 % (0.0-1.9); SCAN/DIFF FINAL DIFF MANUAL
[2015-12-26 07:22] LABS: OVALOCYTES 1+ (NORMAL)
[2015-12-26] MEDS: CHLORHEXIDINE 0.12% (ORAL KIT) 15 ML CUP MT SCH ×2 (07:53→19:50)
[2015-12-26 08:02] LABS: APTT (PATIENT) 30.6 SEC (24.3-30.1); INTERNATIONAL NORMALIZED RATIO 1.3 RATIO; PROTHROMBIN TIME - PATIENT 14.2 SEC (9.8-11.6)
[2015-12-26] MEDS: fentaNYL DRIP 250 ML IV SCH ×2 (08:02→23:05)
[2015-12-26] MEDS: MIDAZOLAM 100 MG/NS 100 ML DRIP Premix IV SCH (08:03)
[2015-12-26] MEDS ORDERED: DEXTROSE 50% IN WATER 50 ML VIAL(D50) IV PUSH PRN (08:15)
[2015-12-26] MEDS ORDERED: MISC INFORMATION XX ONE (08:15)
[2015-12-26] MEDS: INSULIN REGULAR (IV INFUSION) 100 UNITS in SODIUM CHLORIDE 0.9% INJ 99 ML IV SCH (09:06)
[2015-12-26] MEDS: PANTOPRAZOLE INJ 80 MG in SODIUM CHLORIDE 0.9% INJ 100 ML IV SCH ×2 (09:06→19:48)
--- NOTE | 2015-12-26 09:30 | HHI.GIFU ---
Subjective Remarks Resting in bed. Pt with severe anemia despite transfusions. Nurse reports red blood from G tube. Pt sedated on vent. (Lisa Monroy) Objective Vitals I&O Vital Signs Date Time Temp Pulse Resp B/P Pulse Ox O2 Delivery O2 Flow Rate FiO2 12/26/15 08:00 40 12/26/15 08:00 100 12/26/15 07:54 100 40 12/26/15 06:00 116 12/26/15 04:00 98.8 120 20 100/60 100 12/26/15 04:00 120 12/26/15 04:00 40 12/26/15 04:00 100 40 12/26/15 02:00 116 12/26/15 01:00 100 40 12/26/15 00:00 40 12/26/15 00:00 121 12/26/15 00:00 99.0 122 20 89/56 100 12/25/15 22:00 116 12/25/15 20:00 40 12/25/15 20:00 119 12/25/15 20:00 99.0 120 20 96/60 100 12/25/15 19:47 100 40 12/25/15 18:00 112 12/25/15 16:00 98.6 108 20 84/56 99 12/25/15 16:00 40 12/25/15 16:00 108 12/25/15 14:00 98 12/25/15 12:00 98 12/25/15 12:00 97.9 104 20 96/64 99 12/25/15 12:00 40 12/25/15 11:54 99 40 12/25/15 10:00 98 I/O 12/25/15 12/25/15 12/25/15 12/26/15 12/26/15 12/26/15 07:00 15:00 23:00 07:00 15:00 23:00 Intake Total 956 ml 1111 ml 2223 ml 1806 ml Output Total 1770 ml 1885 ml 1125 ml 1165 ml Balance -814 ml -774 ml 1098 ml 641 ml IV Total 640 ml 681 ml 1701 ml 1378 ml Tube Feeding 240 ml 113 ml TPN/PPN 316 ml 330 ml 282 ml 315 ml Albumin 100 ml Output Urine Total 1200 ml 1100 ml 650 ml 450 ml Stool Total 0 ml 0 ml 25 ml 15 ml Gastric Drainage Total 200 ml 250 ml 25 ml 75 ml Drainage Total 370 ml 535 ml 425 ml 625 ml Laboratory Laboratory Tests Test 12/25/15 12/26/15 12/26/15 12/26/15 14:35 04:45 05:52 06:00 Potassium Level 3.3 3.8 White Blood Count 29.7 30.0 Red Blood Count 1.51 1.42 Hemoglobin 4.3 4.1 Hematocrit 13.9 13.0 Mean Corpuscular Volume 91.7 92.0 Mean Corpuscular Hemoglobin 28.5 28.9 Mean Corpuscular Hemoglobin 31.1 31.4 Concent Red Cell Distribution Width 16.9 16.9 Platelet Count 116 112 Mean Platelet Volume 11.6 11.6 Neutrophils (%) (Auto) 75.0 73.5 Lymphocytes (%) (Auto) 11.5 12.0 Monocytes (%) (Auto) 13.3 14.3 Eosinophils (%) (Auto) 0.0 0.0 Basophils (%) (Auto) 0.2 0.2 Neutrophils # (Auto) 22.3 22.0 Lymphocytes # (Auto) 3.4 3.6 Monocytes # (Auto) 3.9 4.3 Eosinophils # (Auto) 0.0 0.0 Basophils # (Auto) 0.1 0.1 CBC Comment AUTO DIFF AUTO DIFF Differential Total Cells 100 100 Counted Neutrophils % (Manual) 74 68 Lymphocytes % 10 14 Monocytes % 12 10 Neutrophils # (Manual) 23.2 22.8 Myelocytes 4 2 Nucleated Red Blood Cells 7 3 Differential Comment FINAL DIFF FINAL DIFF MANUAL MANUAL Platelet Estimate LOW LOW Platelet Morphology Comment NORMAL NORMAL Polychromasia 3.7 3.3 Basophilic Stippling MOD MOD Ovalocytes 1+ Sodium Level 152 Chloride Level 119 Carbon Dioxide Level 20.2 Anion Gap 13 Blood Urea Nitrogen 90 Creatinine 1.87 Estimat Glomerular Filtration 38 Rate Random Glucose 294 Calcium Level 7.6 Total Bilirubin 0.6 Aspartate Amino Transf 19 (AST/SGOT) Alanine Aminotransferase 8 (ALT/SGPT) Alkaline Phosphatase 135 Total Protein 3.6 Albumin 1.8 Band Neutrophils % 4 Metamyelocytes 2 Blood Type B POSITIVE Antibody Screen NEGATIVE Crossmatch Leukocyte-Reduced Red Blood Cells Blood Bank Comment Test 12/26/15 12/26/15 06:38 07:38 Crossmatch Leukocyte-Reduced Red Blood Cells Blood Bank Comment Prothrombin Time 14.2 Prothromb Time International 1.3 Ratio Activated Partial 30.6 Thromboplast Time Fibrinogen 203 Date/Time Procedure Status Source Growth 12/21/15 15:07 Gram Stain - Final Complete Sputum Endotracheal 12/21/15 15:07 Sputum Culture - Final Complete Sputum Endotracheal LIGHT GROWTH NORMAL RESPIRATORY DORI Imaging Last Impressions Chest X-Ray 12/25/15 0600 Signed Impressions: Service Date/Time: Friday, December 25, 2015 04:18 - CONCLUSION: Recent hazy opacity on the left may reflect a layering pleural effusion and consolidation. Improved aeration on the right. Arcadio Dickerson MD Abdomen/Pelvis CT 12/19/15 0000 Signed Impressions: Service Date/Time: Saturday, December 19, 2015 10:57 - CONCLUSION: 1. Adjacent volume pneumoperitoneum is observed consistent with perforation of a hollow viscus. This is presumably colonic in origin due to the diffuse inflammatory process involving the colon. I do not clearly identify the source of the pneumoperitoneum however. There is mild dilatation of the small bowel likely an ileus in nature. A significant volume of ascitic fluid is noted. 2. Bibasilar atelectasis and bilateral pleural effusions. 3. Small pericardial effusion. 4. Small bilateral nonobstructing renal calculi. 5. I spoke with Dr. Sanchez concerning the findings. Osmar Chavez Jr., MD Abdomen X-Ray 12/18/15 0000 Signed Impressions: Service Date/Time: Friday, December 18, 2015 16:05 - CONCLUSION: Feeding tube tip is at the gastric antrum. Arnaldo Elias MD Chest CT 12/14/15 0000 Signed Impressions: Service Date/Time: Monday, December 14, 2015 06:12 - CONCLUSION: 1. Cardiomegaly with bilateral consolidation, likely CHF. Pneumonia cannot be excluded. 2. Small right pleural effusion. Wojciech Lockhart MD Head CT 12/02/15 1013 Signed Impressions: Service Date/Time: Wednesday, December 02, 2015 11:00 - CONCLUSION: 1. No intracranial abnormality is seen. 2. Air-fluid level in the right maxillary sinus. Arnaldo Reyes MD Physical Exam HEENT: Normocephalic; atraumatic; no jaundice. CHEST: Resp. shallow, diminished. OETT to vent CARDIAC: ST ABDOMEN: Soft, nondistended. G tube with red blood/clots aspirated from stomach. J tube with TF. Midline incision line with wound vac, RLQ ileostomy with black liquid stool EXTREMITIES: Generalized edema. SKIN: Drsg to RUE, LUE, BLE. [employer]: Sedated on vent. (Lisa Monroy) Assessment and Plan Plan ASSESSMENT: - Upper GI bleed. Pt with significant anemia despite transfusions. G tube aspirated with moderate amount of red blood and clots in return. TF turned off at 830. Protonix Gtt started. Getting PRBC. Will check serial H/H and transfuse as necessary, make NPO and plan for EGD today. - Severe anemia. 4./13.0. 3 additional units today, total of 29 units of PRBC , 9 units FFP, 3 units Plt, 2 units pooled plt, 1 unit cryo. - Perforated right colon sec. to colitis, s/p ex-lap, extended right hemicolectomy with primary ileocolic anastomosis, washout, open abdomen (12/18) per surgery. Path suspicious for Ischemic vs. CDifficilie. S/P Exp. lap with subtotal colectomy (12/20). TPN, trickle feeds via J tube- made npo at 830 for scope this afternoon. - GERD, requiring daily antacids at home. PPI. - Severe sepsis with worsening leukocytosis. Cefepime, Micafungin, flagyl - RUE infection/wound. Per plastics/ID - Resp. Failure. Per CCM - DEIRDRE/Electrolyte abnormalities. Creat 1.87 - Chronic hepatitis C. S/P tx with Interferon/Ribavirin 6-7 years ago. reports that he was undetectable during treatment, but did not have a sustained virological response. He has never been told that he has liver cirrhosis. Liver biopsy (04/14/08)----> chronic hepatitis C with mild periportal inflammation grade 2 and mild fibrous portal expansion stage 1. He does not drink ETOH. PLAN: - Plan for egd today - Obtain consents - NPO - Protonix Gtt - Peg to LIWS - Agree with transfusion - HH q6h x 4 - Transfuse as necessary - Abx per ID - GS following - CCM following - ID following - Supportive care - Further recommendations to follow based on results of above - Pt seen and examined by Dr. Altamirano and myself and this note is written on his behalf (Lisa Monroy) Physician Comments Patient was seen and examined, agree with above note and note. EGD today ( Sherrie Altamirano MD) Lisa Monroy Dec 26, 2015 09:30 Sherrie Altamirano MD Dec 26, 2015 11:23
[2015-12-26] MEDS: VASOPRESSIN INJ 40 UNITS in DEXTROSE 5% IN WATER 100ML INJ 98 ML IV SCH ×2 (09:42)
[2015-12-26] MEDS: HYDROCORTISONE SOD SUCCINATE 100 MG VIAL IV PUSH SCH ×2 (10:21→22:26)
[2015-12-26] MEDS: POVIDONE IODINE 10% OINT 30 GM TUBE TOPICAL SCH (11:05)
--- NOTE | 2015-12-26 12:22 | HHI.CCPN ---
Subjective Remarks/Hospital Course 55-year-old male brought by EMS with altered mental status. He has been confused for 2 days but this morning has been the worst. He has history of chronic opiate medications including methadone and morphine that he takes for pain management and hence they gave him Narcan IV which brought the GCS up to 13. The blood glucose was 74. He has open wounds from his right upper and bilateral lower extremities. He has history of hepatitis C. Last week he was pealing and eating shrimps. Bedside blood sugar was 76 in the ER. He was tachycardic in 1 teens and was intubated in the ED for airway protection. Admitted to ICU with sepsis due to Staph Aureus hand infection and E. Coli bacteriemia. 12/05 Patient remains sedated with Fentanyl and intubated. On Levophed 3 mics, Vasopressin 0.03 mics and Bicarb drip. T:99.8 TF placed on hold OGT to LIWS last night - gastric drainage 525ml overnight. 12/06 Patient is sedated with Fentanyl and intubated, On Levophed 3 mics, off vasopressin. Gastric output 400ml in 24 hrs. KUB abdomen yesterday mildly distended colon otherwise non specific KUB. 12/07 Patient is off sedation remains intubated tolerated CPAP for most day yesterday. Afebrile. on no drips, tolerating tube feeds. 12/08 Patient went to OR yesterday for debridement and irrigation of right forearm and wound VAC placement. Given 2U PRBC and 2u PLT yesterday and currently receiving 1of 2 u additional PRBC. Hgb 7.7, PLT 43 this morning. Patient also started on pressors now on Levophed 10 mics. Vasopressin 0.04 mics. On no sedation. 12/09 Patient remains intubated off pressors, Afebrile. Tolerating tube feeds. Afebrile. 12/10 Patient is sedated with Fentanyl and intubated. Awake and follows commands off sedation. Afebrile. 12/11 Patient had ?SVT overnight given Lopressor 2.5mg IV x1, Remains intubated and sedated with Fentanyl. Afebrile. Tolerating TF. 12/12 Patient spoked fever last night with T: 101.5, sedated with Fentanyl and intubated. 12/13 Patient had an episode of desaturation overnight required increase FIO2/ PEE now on ACV with RR 14, TV 550, PEEP: 12, FIO2 60% with sats 100% CT chest performed overnight showed b/l consolidation and small pleural effusion. Had T: 100.0 last night. 12/14 Tolerating PS 15/CPAP 10 FiO2 40% with rSBI 38, weaning. . Awake and alert , following commands. Hypotensive overnight and levophed restarted up to 12 mcg/ min. Nurse has been weaning throughout the day. Suspected adrenal insufficiency as he was on prednisone as outpatient for gout and has not been on stress dose steroids. Given decadron. 12/15 Transfused 1 unit PRBC for Hgb 7.0 yesterday, 1 unit PRBC for Hgb 6.6 today and now Hgb 8.3. Does not clinically have e/o active GI bleeding and wound vac output nonbloody. Stool 1500 output, C diff negative. No abdominal pain. Remains Awake and alert, remained on CPAP 10/5 last night and is now tolerating CPAP 5/5. 12/16: Extubated yesterday tolerating well. Breathing comfortably. Able to follow commands. UO 1.8 L in 24 hours. Na slightly increased to 153. 12/17: Significantly worse this AM. WBC up to 28 from 16. Hgb 5.2 from 7.9. tachycardic. pale this AM. states he feels tired. Continues on BiPAP. Plan for debridement of his arms today. LIJ CVL does not have any signs of overt infection. 12/18: Blood cell count continues to rise today to 30 from 28. Required 1 unit of blood for hemoglobin of 6.6 which improved to 7.7 this morning. However, patient remains tachycardic in the 120s and significantly pale. CT abdomen and pelvis ordered and pending. Tachypneic with respiratory rate in the 30s. Only small amount of dark tarry stool yesterday with approximately 300 cc of stool output. C. difficile toxin negative 3. After discussion with infectious disease, restart vancomycin, cefepime, Flagyl, micafungin. Rey cultures are pending. Per discussion with GI, will not scope as endoscopy is high risk given his tenuous respiratory status this point. Slightly worse hypernatremia as well as worsening acute kidney injury this morning. 12/19: POD 1 s/p ex-lap, washout for perforated ascending colon with extended right hemicolectomy, primary ileocolic anastamosis, open abdomen, septic shock, acute hypoxic and hypercarbic respiratory failure. Significantly critically ill overnight: required 6L ivf resuscitation, 1 unit prbc, norepinephrine, vasopressin, stress dose hydrocortisone. This morning, remains on high-dose vasopressors. still has large volume ivf requirement. Significant SIRS response. Vent requirements increasing with all this volume resuscitation, PEEP up to 10. He remains critically ill, and although I do believe we have surgical source control, I anticipate he will continue to clinically decline before he starts to make improvements. 12/20: Off pressors. follows commands on sedation holiday. +11L over last 3 days during acute illness, +22L since admission. We are going to have to get some of this volume back before we are able to close him given his severe anasarca. 12/21: Taken back to the OR yesterday afternoon for washout and completion colectomy. Postoperatively was significantly under resuscitated as well as had ongoing active oozing. Patient was coagulopathy. The patient was in distributive and hemorrhagic shock. The patient was given multiple units of blood products overnight. Patient was thrombocytopenic, hypofibrinogenemic, coagulopathic. Given significant volume of blood product resuscitation: 24h blood products: 13 prbc 8 ffp 2 plt 1 10-pack cryo This morning continues to have significant amount of bright red output out of his BEV and wound VAC, approximately 500 cc an hour out of his wound VAC, and approximately 75 an mils every 10 minutes out of a BEV. I discussed with surgery and we will correct his coagulopathy and plan to go back to the OR for exploration early this afternoon. 12/22: Clinically starting to improve hemodynamically. off vasopressors. Net+ 26L. CVP rising to 14. UOP adequate. Hgb 7 this AM. 12/23 Seen postop. Hypertensive, BP improved with additional pain medicine. Remains net positive but urine output excellent 3L in 24 hours. Remains on Lasix gtt. went to OR today status post wound VAC change and partial closure 12/24: Fascia was closed yesterday. Wound Vac in place. Remains sedated. -2L negative balance, but with increasing BUN/creat. Discontinue Bumex infusion, start scheduled Bumex 2 mg IV every 12 with IV albumin. 12/25: Overnight became hypotensive requiring Levophed to be restarted. Hemoglobin dropped to 4.1. Noted to have bloody drainage from G-tube and dorsal ileostomy with black stool output Objective Vital Signs Date Time Temp Pulse Resp B/P Pulse Ox O2 Delivery O2 Flow Rate FiO2 12/26/15 10:00 97 12/26/15 09:12 97.3 21 102/94 100 12/26/15 08:00 40 Intake and Output 12/25/15 12/25/15 12/26/15 08:00 16:00 00:00 Intake Total 956 ml 1111 ml 2223 ml Output Total 1770 ml 1885 ml 1125 ml Balance -814 ml -774 ml 1098 ml Result Diagram: 12/26/15 0552 12/26/15 0445 Imaging Last Impressions Chest X-Ray 12/17/15 0600 Signed Impressions: Service Date/Time: Thursday, December 17, 2015 03:25 - CONCLUSION: Persistent left lower lobe consolidation. Osmar Alegria MD Chest CT 12/14/15 0000 Signed Impressions: Service Date/Time: Monday, December 14, 2015 06:12 - CONCLUSION: 1. Cardiomegaly with bilateral consolidation, likely CHF. Pneumonia cannot be excluded. 2. Small right pleural effusion. Wojciech Lockhart MD Abdomen X-Ray 12/06/15 0000 Signed Impressions: Service Date/Time: November 09:53 - CONCLUSION: Nonspecific KUB. Air is seen within a mildly distended colon but contrast is clearly seen in the rectum. Arnaldo Reyes MD Abdomen/Pelvis CT 12/04/15 0000 Signed Impressions: Service Date/Time: Friday, December 04, 2015 16:24 - CONCLUSION: 1. Mildly distended small bowel in the mid and lower abdomen. Contrast is clearly seen extending into the distal small bowel and ascending colon so a complete obstruction is not seen. A transition point is not seen. This pattern likely represents an ileus versus a partial obstruction. 2. Multiple nonobstructing renal stones. 3. Abnormal appearance of the spleen which appears to represent a splenule. It could be correlated if the patient has had either primary splenic removal or splenic injury and this is what is either left of the spleen or a developing splenule. This is likely of no significance. 4. Mild ascites. 5. Increased density within the gallbladder representing either tumefactive sludge or noncalcified stones. 6. Mild bilateral pleural effusions with prominent areas of lower lobe atelectasis or consolidation at the bases bilaterally. 7. Subacute to chronic bilateral rib fractures and multiple compression fractures in the lower thoracic and lumbar spine as described above. The patient does have a prior CT examination from 08/26/2014. All the compression deformities described above are new when compared to that scan. Arnaldo Reyes MD Head CT 12/02/15 1013 Signed Impressions: Service Date/Time: Wednesday, December 02, 2015 11:00 - CONCLUSION: 1. No intracranial abnormality is seen. 2. Air-fluid level in the right maxillary sinus. Arnaldo Reyes MD Objective Remarks GENERAL: middle-aged male, lying in bed, intubated, sedated. critically ill. HEENT: anisocoric pupils L 6mm, R 5mm, reactive. mucous membranes moist. NECK: trachea midline. obese neck. difficult to assess JVD. left IJ triple lumen catheter in place, site is clean and dry without signs of erythema or drainage. RESPIRATORY: Intubated. Breath sounds equal bilaterally. coarse rales b/l. CARDIOVASCULAR:Tachycardic, regular without murmurs. GASTROINTESTINAL: Abdomen fascia is closed midline wound vac in place. BEV drain in left upper quadrant with sanguinous output. bloody drainage from G- tube and dorsal ileostomy with black stool output MUSCULOSKELETAL: Generalized anasarca. Multiple open wounds in the lower extremity. RUE - with wound vac in place. L upper extremity dressing in place. NEURO: RASS - 3. Not following commands. 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 He has made improvements in his shock state. He is now severely volume overloaded given the large volume resuscitation he required for his shock. He also continues to have an DEIRDRE. We've made slight improvements in hemodynamics. However we are still grossly anasarca and volume overloaded. We need to start diuresing the patient with forced diuresis. This will be difficult given his ongoing acute kidney injury and the fact that I think that his renal function may be worsening and not improving. I have had numerous daily talks with his family about the fact that we may end up having to utilize renal replacement therapy in order to optimize his volume status and his abdomen closed and progress his care. I do not think we are at that point today. He still remains severely critically ill Neuro: Acute encephalopathy secondary to sepsis Acute pain secondary to multiple soft tissue infections Acute post-surgical pain Chronic pain -- PRN Tylenol 1gm IV q8h scheduled for pain. -- Dilaudid 0.5-2mg iv q4h prn for breakthrough pain. -- fentanyl infusion for goal RASS -2. -- d/cd ketamine drip 12/22. -- holding oral opiates. -- remains off home methadone given renal function 12/23/15 methadone 30mg iv x 1 as a loading dose to help with acute on chronic pain. Respiratory Acute respiratory failure-extubated 12/16/15, reintubated for surgery 12/18 Acute hypoxic and hypercarbic respiratory failure Acute healthcare associated pneumonia- resolved NIGEL on home CPAP --Extubated 12/15, reintubated for emergent ex-lap 12/18. ACV 550/18/10/45%. --Vent bundle --Head of bed at 30 degrees --Nebs q6h and q2h prn. --Hold of spontaneous breathing trials due to acute GI bleed, hemodynamically instability --Plan for tracheostomy tomorrow 12/27/15-now put on hold due to acute GI bleed --CT chest 12/13 b/l consolidation with small right pleural effusion CV Hemorrhagic shock Septic Shock- resolved Volume overload --Norepinephrine for map goal > 65 mmHg. --Cortisol level was 14 on 12/14 --Stress dose steroids, hydrocortisone reduced to 50 12 starting 12/25/15 --Echo 12/07 EF 65-70%, grade I diastolic dysfunction --continue to trend CVP. Renal: DEIRDRE Hypernatremia- Acute intravascular and total body volume overload --BUN/Cr s90/1.87. Holding Bumex 2 mg IV every 12 hours with IV albumin --Patient may need CRRT Lasix infusion discontinued 12/24/15. Bumex infusion discontinued 12/25/15 FEN/GI Acute GIB, hemorrhagic shock Perforated right colon with colitis Acute protein calorie malnutrition- severe Hypokalemia Total body volume overload Intravascular hypervolemia Distributive Shock Anion Gap metabolic acidosis Open abdomen s/p ex-lap, extended right hemicolectomy with primary ileocolic anastamosis, washout, open abdomen (12/18) -- Protonix infusion. Gastroenterology reconsulted. Plan for endoscopy today --Status post transfusion of 3 units of PRBC. Check H&H every 8 hours. Continue Lovenox --Keep nothing by mouth due to GI bleed, continue TPN. (TF recs per Nutrition Glucerna 1.5 at 60cc/hr) -- ICU electrolyte protocol -- Daily BMP -- s/p OR with wound VAC change and fascial closure. Heme: Acute Anemia secondary to acute blood loss Thrombocytopenia Hypofibrinogenemia secondary to consumption and acute blood loss Coagulopathy secondary to consumption and acute blood loss --monitor CBC, monitor H&H every 8 hours --Hep PLT ab negative on 12/03 -- d/c ferrous sulfate. -- Receiving 3 units of PRBC today ID - Septic Shock - Necrotizing Fascitis - MSSA on wound culture 12/07. - Ecoli bacteremia 12/01 - MSSA bacteremia 12/05. Cleared on f/u blood culture 12/07, 12/12. --Leukocytosis --Sepsis of Intra-abdominal origin. --C. difficile toxic megacolon -- Debridement 12/01 p.m at bedside by Dr Pedro and Dr. Hartmann -- R hand, forearm and olecrenon bursa I and D and Wound vac 12/07 Dr Chavez. -- Continue IV cefepime,flagyl IV, micafungin. PO/intracolonic treatment for C.diff is conraindicated as the patient has sutured dital ileum and prox retained rectum P ileostomy --12/17 blood cultures: NGTD 12/17 central line culture: NGTD 12/17 urine cultures: NGTD 12/17 sputum cultures: NGTD C. difficile toxin 12/17: Negative (3rd negative toxin screen) -- ID Dr. Becerra Endocrine: Hyperglycemia of Critical Illness Diabetes Presumed acute adrenal insufficiency Insulin drip algorithm 1. 20 U instulin to TPN and Moderate SSI. every 3 Accu- Cheks -- continue hydrocortisone 50mg iv q12h. wean to DC in 3 days Prophylaxis: GI Prophylaxis: -- Protonix 40mg IV infusion DVT Prophylaxis: -- SCDs --Receiving Lovenox 30 mg subcutaneous daily-discontinued due to acute GI bleed Lines: --L IJ CVL placed 12/13. The patient has significantly poor IV access given his multiple wounds. Does not appear to be infected. --We do have cultures that were drawn from the line that are NGTD. If these cultures turn positive, or he has signs of bacteremia, we will replace this line. -- Sandoval -- left axillary arterial line 12/18. Dispo: -- remain in the [facility]. He is severely critically ill. This patient remains critically ill with one or more organ systems which are or may become a threat to life. I have spent in excess of 60 minutes discontinuously in the care and management of this patient. This time is exclusive of procedures, and includes, but is not limited to, evaluation of the patient, review of the medical record, discussions with family, consultants, nursing staff, or respiratory therapy, and documentation in the medical record. Problem Qualifiers (1) Respiratory failure: Qualified Code: J96.00 - Acute respiratory failure, unspecified whether with hypoxia or hypercapnia (2) Altered mental status: Qualified Code: R41.0 - Delirium (3) Sepsis: Qualified Code: A41.9 - Sepsis, due to unspecified organism Audra Mcintosh MD Dec 26, 2015 12:22
[2015-12-26] MEDS: SODIUM CHLOR 0.45% 1000 ML INJ 1,000 ML IV SCH (12:47)
[2015-12-26] MEDS: MICAFUNGIN INJ 150 MG in SODIUM CHLORIDE 0.9% INJ 100 ML IV SCH (13:29)
[2015-12-26 13:49] LABS: HEMATOCRIT 27.1 % (39.0-51.0)
[2015-12-26 13:53] LABS: REVIEW FLAG FINAL
[2015-12-26] MEDS ORDERED: EPINEPHrine HCL (1:10,000) 1 MG/10 ML SYRINGE OTHER ONE (13:59)
[2015-12-26] MEDS ORDERED: PROPOFOL 200 MG/20 ML AMP IV PUSH ONE (14:10)
--- NOTE | 2015-12-26 14:27 | MP ---
cc: NOMI MILLER M.D. DATE OF SURGERY: 12/24/2015 PREOPERATIVE DIAGNOSIS Open abdomen, status post subtotal colectomy for ischemia secondary to apparent C. difficile. POSTOPERATIVE DIAGNOSIS Open abdomen, status post subtotal colectomy for ischemia secondary to apparent C. difficile. PROCEDURE 1. Removal of VAC dressing device. 2. Abdominal washout. 3. Placement of drain in the pancreas. 4. Placement drain in the pelvis. 5. Gastrostomy. 6. Feeding jejunostomy. 7. Closure of abdomen with application of VAC device in the subcutaneous tissue. ANESTHESIA General. SURGEON Dr. Paul Barrientos. Lurdes RUIZ The HOME DESIGNER was present from beginning to the end of the case assisting in all portions of the procedure. It was necessary to have this individual in the room to assist in the above surgical procedure. The surgical procedure was assisted by the HOME DESIGNER. The HOME DESIGNER presence was necessary throughout the case for appropriate retraction, dissection, visualization, and resection of the important anatomical structures during the surgical procedure. The HOME DESIGNER was assisting throughout the entirety of the operation. The skill set of the HOME DESIGNER is medically and surgically necessary to safely complete the surgical procedure. During the surgical case, the operating room rn surgical was working instrument table and passing instruments to the attending surgeon and HOME DESIGNER. The HOME DESIGNER was directly assisting the operating surgeon and involved in the technical aspects of the surgical case. 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 He was on antibiotics and subsequently developed and free air. It was found that he had a necrotic colon. This is his fourth trip to the operating room for debridement. Plans were made for definitive therapy and closure of the abdomen because of his hemodynamic stability and improvement. DETAILS OF PROCEDURE The patient was taken to the operating room and placed in the supine position. After general anesthesia his VAC device is removed. He is prepped with prepping solution and draped out. The abdomen is then explored. A few days ago we had taken him to the operating room for bleeding. There was no evidence of any active bleeding, no old clots. He just had some serosanguineous fluid. This is evacuated out. We then wash him out with 2 liters of saline. We then create a gastrostomy tube by bringing a 24 JUICE gastrostomy tube in the left upper quadrant to the body of the stomach and suture this in with a pursestring suture. This is secured to the anterior abdominal wall with a silk suture as well and brought up at 4 cm on the JUICE gastrostomy tube and secured to the skin with a nylon suture. We then create a feeding jejunostomy about 15 cm distal to the ligament of Treitz by placing an 18 [place] red rubber tube with the end cut off and some side ports placed. This is Witzel'd into place with a silk suture and a pursestring. This is brought up to the anterior abdominal wall and secured with a silk suture as well, and brought out through a separate stab incision in the left mid quadrant. We then place a BEV in the left lower quadrant down the pelvis where he has some purulent material and inflammation. The BEV at the pancreas is visualized and this is left in place as well. We then irrigate copiously. It is noted the small bowel looks quite viable and is peristalsing. We then bring up the ileostomy to the right lower quadrant by making a defect in the fascia in the right lower quadrant and the ileostomy is brought up and matured with 3-0 Vicryl sutures. The fascia is then closed with a #2 nylon in a running fashion x2. The skin is then covered with the VAC dressing and appliance applied to continuous suction. The ileostomy appliance is applied. The ileostomy appears pink. The patient returns to the intensive care unit in critical but stable condition. Nomi Miller MD JTIFFANI/ANTONY /8:52 PM /2:13 PM SANDRA
--- NOTE | 2015-12-26 15:46 | HHI.PR ---
Subjective Subjective Notes DAILY PROGRESS NOTE FOR SURGICAL ATTENDING, DR. NOMI MILLER Called by SOURAV recio AM due to bleeding from J tube and black stool in ileostomy Patient is intubated/sedated Objective Vitals/I&O Vital Signs Date Time Temp Pulse Resp B/P Pulse Ox O2 Delivery O2 Flow Rate FiO2 12/26/15 14:00 98 12/26/15 12:00 98.2 20 100 130/75 12/26/15 12:00 40 Labs Laboratory Tests Test 12/26/15 12/26/15 12/26/15 12/26/15 04:45 05:52 06:00 06:38 White Blood Count 29.7 30.0 Red Blood Count 1.51 1.42 Hemoglobin 4.3 4.1 Hematocrit 13.9 13.0 Mean Corpuscular Volume 91.7 92.0 Mean Corpuscular Hemoglobin 28.5 28.9 Mean Corpuscular Hemoglobin 31.1 31.4 Concent Red Cell Distribution Width 16.9 16.9 Platelet Count 116 112 Mean Platelet Volume 11.6 11.6 Neutrophils (%) (Auto) 75.0 73.5 Lymphocytes (%) (Auto) 11.5 12.0 Monocytes (%) (Auto) 13.3 14.3 Eosinophils (%) (Auto) 0.0 0.0 Basophils (%) (Auto) 0.2 0.2 Neutrophils # (Auto) 22.3 22.0 Lymphocytes # (Auto) 3.4 3.6 Monocytes # (Auto) 3.9 4.3 Eosinophils # (Auto) 0.0 0.0 Basophils # (Auto) 0.1 0.1 CBC Comment AUTO DIFF AUTO DIFF Differential Total Cells 100 100 Counted Neutrophils % (Manual) 74 68 Lymphocytes % 10 14 Monocytes % 12 10 Neutrophils # (Manual) 23.2 22.8 Myelocytes 4 2 Nucleated Red Blood Cells 7 3 Differential Comment FINAL DIFF FINAL DIFF MANUAL MANUAL Platelet Estimate LOW LOW Platelet Morphology Comment NORMAL NORMAL Polychromasia 3.7 3.3 Basophilic Stippling MOD MOD Ovalocytes 1+ Sodium Level 152 Potassium Level 3.8 Chloride Level 119 Carbon Dioxide Level 20.2 Anion Gap 13 Blood Urea Nitrogen 90 Creatinine 1.87 Estimat Glomerular Filtration 38 Rate Random Glucose 294 Calcium Level 7.6 Total Bilirubin 0.6 Aspartate Amino Transf 19 (AST/SGOT) Alanine Aminotransferase 8 (ALT/SGPT) Alkaline Phosphatase 135 Total Protein 3.6 Albumin 1.8 Band Neutrophils % 4 Metamyelocytes 2 Blood Type B POSITIVE Antibody Screen NEGATIVE Crossmatch Leukocyte-Reduced Leukocyte-Reduced Red Blood Red Blood Cells Cells Blood Bank Comment Test 12/26/15 12/26/15 07:38 13:35 Prothrombin Time 14.2 Prothromb Time International 1.3 Ratio Activated Partial 30.6 Thromboplast Time Fibrinogen 203 Hemoglobin 8.9 Hematocrit 27.1 Cardiovascular: Regular Lungs: Clear Abdomen: Other (would vac in place with good seal; J tube clampled; G tube to gravity; black tarry stool in ileotstomy ) Narrative Exam RIGHT arm with wound vac on Several abrasions with non adherent dressing in place A/P Problem List: (1) Dependent on ventilator (2) Open wound of abdomen (3) Ileostomy in place (4) Jejunostomy tube present (5) S/P total colectomy (6) Acute colitis (7) Gastrostomy tube in place Assessment and Plan 55 year old male s/p ex lap; s/p colectomy; G/J tube placement and would vac change -EGD today shows gastric ulcer -Plan to change Wound Vac at bedside -Plan trach at bedside tomorrow at 1330 -RIGHT arm wound vac per Dr. Pedro -NPO -PT/OT -TPN Attending Statement NOTE FOR SURGICAL ATTENDING, DR. NOMI MILLER I agree with above assessment and plan. The exam, history, and the medical decision-making described in the above note were completed with the assistance of the mid-level provider. I reviewed and agree with the findings presented. I attest that I had a [id number] encounter with the patient on the same day, and personally performed and documented my assessment and findings in the medical record. Asst. Dr. Fajardo do EGD showing gastric ulcer he stopped it Discussed with Dr. Mcintosh about tracheostomy tomorrow The following services were provided during this hospital visit: Chart data review, vital sign assessments/reviewing monitor data Review of consultations notes if present. Medication orders/review and/or management Ordering and/or reviewing lab tests Ordering and/or interpreting/reviewing x-rays and/or diagnostic studies Care of the patient and discussion of the patient with the care team Documentation time To help prompt me to consider important information that might be impacting today's encounter and assessment, information from prior notes written by myself or my colleagues may have been "brought forward/copy and pasted" into today's note. Problem Qualifiers (1) Open wound of abdomen: Qualified Code: S31.109D - Open wound of abdomen, subsequent encounter Lurdes Felix Dec 26, 2015 15:46 Nomi Miller MD Dec 26, 2015 16:32
[2015-12-26] MEDS ORDERED: MISC INFORMATION OTHER ONE (16:00)
[2015-12-26] MEDS: [UNRECOGNIZED DRUG - OTHER] IV-CENTRAL SCH ×10 (19:49)
[2015-12-26] MEDS: FAT EMULSION 20% INJ 250 ML (Twice weekly over 8 hours) IV-CENTRAL SCH (19:49)
[2015-12-26] MEDS: SODIUM ACETATE IV-CENTRAL SCH ×10 (19:49)
[2015-12-26] MEDS: POTASSIUM CHLORIDE IV-CENTRAL SCH ×10 (19:49)
[2015-12-26 20:47] LABS: HEMATOCRIT 24.1 % (39.0-51.0); MEAN CORPUSCULAR HEMOGLOBIN 29.1 PG (27.0-34.0); MEAN CORPUSCULAR HGB CONC 33.5 % (32.0-36.0); PLATELET COUNT 118 TH/MM3 (150-450); RED BLOOD COUNT 2.77 MIL/MM3 (4.50-5.90); RED CELL DISTRIBUTION WIDTH 15.7 % (11.6-17.2); WHITE BLOOD COUNT 37.8 TH/MM3 (4.0-11.0)
[2015-12-26 20:54] LABS: HEMO FLAGS AUTO DIFF
[2015-12-26 21:01] LABS: INTERNATIONAL NORMALIZED RATIO 1.2 RATIO; PROTHROMBIN TIME - PATIENT 13.4 SEC (9.8-11.6)
[2015-12-26 21:41] LABS: BANDS 3 % (0-6); CORRECTED NUCLEATED RBC 15 /100 WBC (0-0); METAMYELOCYTES 2 % (0-1); MYELOCYTES 3 % (0-0); POLYS (SEG NEUTROPHILS) 74 % (16-70); WBC DIFF SAMPLE 100
[2015-12-26 21:42] LABS: ACANTHOCYTES OCC (NORMAL); PLATELET ESTIMATE SMEAR LOW (NORMAL); PLATELET MORPHOLOGY NORMAL (NORMAL); SCAN/DIFF FINAL DIFF MANUAL
--- NOTE | 2015-12-26 22:13 | HHI.IDPN ---
Subjective Subjective Remarks ID delayed entry - I saw pt today right after his EGD pt is bleeding from gastric ulcer sp ileostomy Hypotensive, on pressors Hb 4.1 remians on vent Antibiotics cefepime IV, IV flagyl, micafungin IV Lines RIJ and other Line sites with no e/o infection Past Medical History RA HCV sp splenectomy Allergies: Coded Allergies: Compazine (Verified Allergy, Severe, VOMITING, RASH, 08/26/14) SLURRED SPEECH, MIGRAINES Demerol (Verified Allergy, Severe, VOMITING, 08/26/14) Levaquin (Verified Allergy, Severe, 08/26/14) Penicillin (Verified Allergy, Severe, Rash, 08/26/14) Phenergan (Verified Allergy, Severe, VOMITING, 08/26/14) Uncoded Allergies: ANTI-CONVULSIVES (Allergy, Severe, MIGRAINES, SLURRED SPEECH,, 01/23/14) Objective . Vital Signs Date Time Temp Pulse Resp B/P Pulse Ox O2 Delivery O2 Flow Rate FiO2 12/26/15 20:00 40 12/26/15 20:00 98.1 105 20 131/69 100 12/26/15 20:00 110 12/26/15 19:18 100 40 12/26/15 18:00 111 12/26/15 16:00 110 12/26/15 16:00 40 12/26/15 16:00 97.5 110 20 120/82 100 12/26/15 15:42 100 40 12/26/15 14:00 98 12/26/15 12:00 98.2 104 20 100 130/75 12/26/15 12:00 111 12/26/15 12:00 40 12/26/15 10:00 97 12/26/15 09:12 97.3 102 21 102/94 100 12/26/15 08:26 97.3 112 20 108/70 100 12/26/15 08:00 40 12/26/15 08:00 97.3 112 20 94/58 100 12/26/15 08:00 100 12/26/15 07:54 100 40 12/26/15 07:40 97.3 114 22 94/54 100 12/26/15 06:00 116 12/26/15 04:00 98.8 120 20 100/60 100 12/26/15 04:00 120 12/26/15 04:00 40 12/26/15 04:00 100 40 12/26/15 02:00 116 12/26/15 01:00 100 40 12/26/15 00:00 40 12/26/15 00:00 121 12/26/15 00:00 99.0 122 20 89/56 100 12/25/15 12/25/15 12/26/15 15:00 23:00 07:00 Intake Total 1111 ml 2223 ml 1806 ml Output Total 1885 ml 1125 ml 1165 ml Balance -774 ml 1098 ml 641 ml IV Total 681 ml 1701 ml 1378 ml Tube Feeding 240 ml 113 ml TPN/PPN 330 ml 282 ml 315 ml Albumin 100 ml Output Urine Total 1100 ml 650 ml 450 ml Stool Total 0 ml 25 ml 15 ml Gastric Drainage Total 250 ml 25 ml 75 ml Drainage Total 535 ml 425 ml 625 ml . Laboratory Tests Test 12/25/15 12/26/15 12/26/15 12/26/15 04:45 04:45 05:52 13:35 White Blood Count 34.3 TH/MM3 29.7 TH/MM3 30.0 TH/MM3 Red Blood Count 3.01 MIL/MM3 1.51 MIL/MM3 1.42 MIL/MM3 Hemoglobin 8.7 GM/DL 4.3 GM/DL 4.1 GM/DL 8.9 GM/DL Hematocrit 26.4 % 13.9 % 13.0 % 27.1 % Mean Corpuscular Volume 87.7 FL 91.7 FL 92.0 FL Mean Corpuscular Hemoglobin 29.0 PG 28.5 PG 28.9 PG Mean Corpuscular Hemoglobin 33.0 % 31.1 % 31.4 % Concent Red Cell Distribution Width 16.5 % 16.9 % 16.9 % Platelet Count 112 TH/MM3 116 TH/MM3 112 TH/MM3 Mean Platelet Volume 11.1 FL 11.6 FL 11.6 FL Neutrophils (%) (Auto) 83.9 % 75.0 % 73.5 % Lymphocytes (%) (Auto) 5.8 % 11.5 % 12.0 % Monocytes (%) (Auto) 10.0 % 13.3 % 14.3 % Eosinophils (%) (Auto) 0.0 % 0.0 % 0.0 % Basophils (%) (Auto) 0.3 % 0.2 % 0.2 % Neutrophils # (Auto) 28.7 TH/MM3 22.3 TH/MM3 22.0 TH/MM3 Lymphocytes # (Auto) 2.0 TH/MM3 3.4 TH/MM3 3.6 TH/MM3 Monocytes # (Auto) 3.4 TH/MM3 3.9 TH/MM3 4.3 TH/MM3 Eosinophils # (Auto) 0.0 TH/MM3 0.0 TH/MM3 0.0 TH/MM3 Basophils # (Auto) 0.1 TH/MM3 0.1 TH/MM3 0.1 TH/MM3 CBC Comment AUTO DIFF AUTO DIFF AUTO DIFF Differential Total Cells 100 100 100 Counted Neutrophils % (Manual) 79 % 74 % 68 % Band Neutrophils % 5 % 4 % Lymphocytes % 3 % 10 % 14 % Monocytes % 9 % 12 % 10 % Neutrophils # (Manual) 30.2 TH/MM3 23.2 TH/MM3 22.8 TH/MM3 Myelocytes 2 % 4 % 2 % Promyelocytes 2 % Nucleated Red Blood Cells 9 /100 WBC 7 /100 WBC 3 /100 WBC Differential Comment FINAL DIFF FINAL DIFF FINAL DIFF MANUAL MANUAL MANUAL Platelet Estimate LOW LOW LOW Platelet Morphology Comment NORMAL NORMAL NORMAL Polychromasia 2.4 % 3.7 % 3.3 % Basophilic Stippling FAINT MOD MOD Ovalocytes 1+ Metamyelocytes 2 % Test 12/26/15 20:20 White Blood Count 37.8 TH/MM3 Red Blood Count 2.77 MIL/MM3 Hemoglobin 8.1 GM/DL Hematocrit 24.1 % Mean Corpuscular Volume 87.0 FL Mean Corpuscular Hemoglobin 29.1 PG Mean Corpuscular Hemoglobin 33.5 % Concent Red Cell Distribution Width 15.7 % Platelet Count 118 TH/MM3 Mean Platelet Volume 11.8 FL Neutrophils (%) (Auto) % Lymphocytes (%) (Auto) % Monocytes (%) (Auto) % Eosinophils (%) (Auto) % Basophils (%) (Auto) % Neutrophils # (Auto) TH/MM3 Lymphocytes # (Auto) TH/MM3 Monocytes # (Auto) TH/MM3 Eosinophils # (Auto) TH/MM3 Basophils # (Auto) TH/MM3 CBC Comment AUTO DIFF Differential Total Cells 100 Counted Neutrophils % (Manual) 74 % Band Neutrophils % 3 % Lymphocytes % 9 % Monocytes % 9 % Neutrophils # (Manual) 31.0 TH/MM3 Metamyelocytes 2 % Myelocytes 3 % Nucleated Red Blood Cells 15 /100 WBC Differential Comment FINAL DIFF MANUAL Platelet Estimate LOW Platelet Morphology Comment NORMAL Acanthocytes OCC Laboratory Tests Test 12/25/15 12/25/15 12/26/15 04:45 14:35 04:45 Sodium Level 152 MEQ/L 152 MEQ/L Potassium Level 2.8 MEQ/L 3.3 MEQ/L 3.8 MEQ/L Chloride Level 119 MEQ/L 119 MEQ/L Carbon Dioxide Level 23.2 MEQ/L 20.2 MEQ/L Anion Gap 10 MEQ/L 13 MEQ/L Blood Urea Nitrogen 76 MG/DL 90 MG/DL Creatinine 1.65 MG/DL 1.87 MG/DL Estimat Glomerular Filtration 44 ML/MIN 38 ML/MIN Rate Random Glucose 138 MG/DL 294 MG/DL Calcium Level 7.6 MG/DL 7.6 MG/DL Magnesium Level 2.0 MG/DL Total Bilirubin 0.6 MG/DL 0.6 MG/DL Aspartate Amino Transf 23 U/L 19 U/L (AST/SGOT) Alanine Aminotransferase 8 U/L 8 U/L (ALT/SGPT) Alkaline Phosphatase 156 U/L 135 U/L Total Protein 3.9 GM/DL 3.6 GM/DL Albumin 1.2 GM/DL 1.8 GM/DL Imaging Last Impressions Chest X-Ray 12/25/15 0600 Signed Impressions: Service Date/Time: Friday, December 25, 2015 04:18 - CONCLUSION: Recent hazy opacity on the left may reflect a layering pleural effusion and consolidation. Improved aeration on the right. Arcadio Dickerson MD Abdomen/Pelvis CT 12/19/15 0000 Signed Impressions: Service Date/Time: Saturday, December 19, 2015 10:57 - CONCLUSION: 1. Adjacent volume pneumoperitoneum is observed consistent with perforation of a hollow viscus. This is presumably colonic in origin due to the diffuse inflammatory process involving the colon. I do not clearly identify the source of the pneumoperitoneum however. There is mild dilatation of the small bowel likely an ileus in nature. A significant volume of ascitic fluid is noted. 2. Bibasilar atelectasis and bilateral pleural effusions. 3. Small pericardial effusion. 4. Small bilateral nonobstructing renal calculi. 5. I spoke with Dr. Sanchez concerning the findings. Osmar Chavez Jr., MD Abdomen X-Ray 12/18/15 0000 Signed Impressions: Service Date/Time: Friday, December 18, 2015 16:05 - CONCLUSION: Feeding tube tip is at the gastric antrum. Arnaldo Elias MD Chest CT 12/14/15 0000 Signed Impressions: Service Date/Time: Monday, December 14, 2015 06:12 - CONCLUSION: 1. Cardiomegaly with bilateral consolidation, likely CHF. Pneumonia cannot be excluded. 2. Small right pleural effusion. Wojciech Lockhart MD Head CT 12/02/15 1013 Signed Impressions: Service Date/Time: Wednesday, December 02, 2015 11:00 - CONCLUSION: 1. No intracranial abnormality is seen. 2. Air-fluid level in the right maxillary sinus. Arnaldo Reyes MD Physical Exam GENERAL: On vent , SKIN: + mild jaundice. Anasarca HEENT: no icterus, NO nasal drainage orally intubated NECK: Trachea midline. Supple, nontender. CARDIOVASCULAR: systolic murmur in base of heart RESPIRATORY/CHEST: +scatteresd rhonchi on auscultation. Breath sounds equal bilaterally. GASTROINTESTINAL: Abdomen with VAC in place serosang dc and stoma in place with black very liquid stool GENITOURINARY: Sandoval catheter in place with clear light yellow urine scrotum is mildly edematous. UOP is excellent 150cc/hr MUSCULOSKELETAL: Extremities no cyanosis, Edema less prominent 2+ NEUROLOGICAL: sedated, post procedeure LINES: NO evidence of infection Assessment & Plan Remarks Sepsis related to Cdiff and Intra abdominal peritonitis. - sp subtotal colectomy and ileostomy Cdiff Colitis Noted Cdiff PCR is negative3/3 ? Zinc preparation in perianal care could cause false negative test. Path c/o Cdiff Colitis. - repeat path favouring ischemia Bowel perforation related Abdominal peritonitis. Of note patient has been on steroids prior to and since 12/19/15 which is risk factor for perforation. RUE severe nec fasc 2/2 MSSA - skin grafting was planned, but cancelled - S/P I and D x 3 - RUE infx clinically resolved MSSA bacteremia 2/2 RUE infx - resolved per d/w . E.coli bacteremia on presentation -source is likely gut Immunosuppressed on steroids, s/p splenectomy. PCN allergy, but no probs with Keflex per report. ARF/ DEIRDRE/ATN 2/2 sepsis -stable More stable hemodynamically today Patient is critically ill. Sp upper GI bleeding Severe leukocytsis, leukemoid reaction - reactive? PLAN: Continue IV cefepime,flagyl IV, micafungin IV fu clinically D/W Argelia Taylor Dr, MD Dec 26, 2015 22:13
[2015-12-27] VITALS (18 sets, daily range): BP systolic 107–137; BP diastolic 72–86; PULSE 98–112; RESP 20; TEMP 96.1–97.3; O2SAT 95–100
[2015-12-27] MEDS: ALBUMIN HUMAN 25% 25 GM/100 ML BAGP IV SCH (01:11)
[2015-12-27 01:33] LABS: HEMATOCRIT 24.5 % (39.0-51.0)
[2015-12-27 01:36] LABS: REVIEW FLAG FINAL
[2015-12-27] MEDS: PANTOPRAZOLE INJ 80 MG in SODIUM CHLORIDE 0.9% INJ 100 ML IV SCH ×2 (04:00→16:07)
[2015-12-27] MEDS: metroNIDAZOLE 500 MG INJ 100 ML IV SCH ×3 (04:04→19:32)
[2015-12-27] MEDS: CHLORHEXIDINE GLUCONATE 2 % 1 PACK (2 CLOTHS) TOP SCH (04:05)
[2015-12-27] MEDS: NOREPINEPHRINE-DEXTROSE DRIP 250 ML IV SCH (05:23)
[2015-12-27] MEDS: CEFEPIME INJ 2,000 MG in SODIUM CHLORIDE 0.9% INJ 100 ML IV SCH ×2 (06:00→17:59)
[2015-12-27] MEDS: VASOPRESSIN INJ 40 UNITS in DEXTROSE 5% IN WATER 100ML INJ 98 ML IV SCH ×2 (07:56)
[2015-12-27] MEDS: CHLORHEXIDINE 0.12% (ORAL KIT) 15 ML CUP MT SCH ×2 (08:00→19:32)
[2015-12-27 08:39] LABS: REVIEW FLAG FINAL
[2015-12-27 08:44] LABS: HEMATOCRIT 19.8 % (39.0-51.0)
--- NOTE | 2015-12-27 08:47 | MR ---
cc: MARY LOU MOON DATE 12/26/2015 DATE OF [address] Mac PROCEDURE Upper gastrointestinal endoscopy with bleeding controlled by injection of epinephrine and cauterization INDICATION This is a 55-year-old male who has ischemic bowel. The patient started actively bleeding from the PEG tube site with severe drop in his hemoglobin. PROCEDURE After informing the patient and family about the procedure and complication, the patient was placed on his left lateral decubitus, adequate sedation was achieved by propofol. The scope was placed in the mouth, advanced under video guidance to the second portion of the duodenum. The scope drawn back to the stomach. Retroflexion was performed. There were large clots filling the stomach. I tried to flush as much as possible and I examined the PEG tube site. There was active bleeding from a small ulcerations next two the PEG tube. This was cauterized and injected with lidocaine. Next to that area about 1-2 cm, there was a large deep ulcer which was actively bleeding. This was also injected with lidocaine and cauterized. There was a significant part of the stomach that was grayish in color, possible ischemia and Dr. Miller was there from surgery during the procedure and informed about that. The patient also has significant esophagitis. RECOMMENDATIONS 1. Avoid anticoagulation if possible. 2. Continue PPI. 3. Packed RBC as needed. 4. If continues to bleed, the patient needs interventional radiology to try to control and any more bleeding. MD SONJA Armstrong/REY /2:18 PM /8:35 AM
--- NOTE | 2015-12-27 11:25 | HHI.CCPN ---
Subjective Remarks/Hospital Course 55-year-old male brought by EMS with altered mental status. He has been confused for 2 days but this morning has been the worst. He has history of chronic opiate medications including methadone and morphine that he takes for pain management and hence they gave him Narcan IV which brought the GCS up to 13. The blood glucose was 74. He has open wounds from his right upper and bilateral lower extremities. He has history of hepatitis C. Last week he was pealing and eating shrimps. Bedside blood sugar was 76 in the ER. He was tachycardic in 1 teens and was intubated in the ED for airway protection. Admitted to ICU with sepsis due to Staph Aureus hand infection and E. Coli bacteriemia. 12/05 Patient remains sedated with Fentanyl and intubated. On Levophed 3 mics, Vasopressin 0.03 mics and Bicarb drip. T:99.8 TF placed on hold OGT to LIWS last night - gastric drainage 525ml overnight. 12/06 Patient is sedated with Fentanyl and intubated, On Levophed 3 mics, off vasopressin. Gastric output 400ml in 24 hrs. KUB abdomen yesterday mildly distended colon otherwise non specific KUB. 12/07 Patient is off sedation remains intubated tolerated CPAP for most day yesterday. Afebrile. on no drips, tolerating tube feeds. 12/08 Patient went to OR yesterday for debridement and irrigation of right forearm and wound VAC placement. Given 2U PRBC and 2u PLT yesterday and currently receiving 1of 2 u additional PRBC. Hgb 7.7, PLT 43 this morning. Patient also started on pressors now on Levophed 10 mics. Vasopressin 0.04 mics. On no sedation. 12/09 Patient remains intubated off pressors, Afebrile. Tolerating tube feeds. Afebrile. 12/10 Patient is sedated with Fentanyl and intubated. Awake and follows commands off sedation. Afebrile. 12/11 Patient had ?SVT overnight given Lopressor 2.5mg IV x1, Remains intubated and sedated with Fentanyl. Afebrile. Tolerating TF. 12/12 Patient spoked fever last night with T: 101.5, sedated with Fentanyl and intubated. 12/13 Patient had an episode of desaturation overnight required increase FIO2/ PEE now on ACV with RR 14, TV 550, PEEP: 12, FIO2 60% with sats 100% CT chest performed overnight showed b/l consolidation and small pleural effusion. Had T: 100.0 last night. 12/14 Tolerating PS 15/CPAP 10 FiO2 40% with rSBI 38, weaning. . Awake and alert , following commands. Hypotensive overnight and levophed restarted up to 12 mcg/ min. Nurse has been weaning throughout the day. Suspected adrenal insufficiency as he was on prednisone as outpatient for gout and has not been on stress dose steroids. Given decadron. 12/15 Transfused 1 unit PRBC for Hgb 7.0 yesterday, 1 unit PRBC for Hgb 6.6 today and now Hgb 8.3. Does not clinically have e/o active GI bleeding and wound vac output nonbloody. Stool 1500 output, C diff negative. No abdominal pain. Remains Awake and alert, remained on CPAP 10/5 last night and is now tolerating CPAP 5/5. 12/16: Extubated yesterday tolerating well. Breathing comfortably. Able to follow commands. UO 1.8 L in 24 hours. Na slightly increased to 153. 12/17: Significantly worse this AM. WBC up to 28 from 16. Hgb 5.2 from 7.9. tachycardic. pale this AM. states he feels tired. Continues on BiPAP. Plan for debridement of his arms today. LIJ CVL does not have any signs of overt infection. 12/18: Blood cell count continues to rise today to 30 from 28. Required 1 unit of blood for hemoglobin of 6.6 which improved to 7.7 this morning. However, patient remains tachycardic in the 120s and significantly pale. CT abdomen and pelvis ordered and pending. Tachypneic with respiratory rate in the 30s. Only small amount of dark tarry stool yesterday with approximately 300 cc of stool output. C. difficile toxin negative 3. After discussion with infectious disease, restart vancomycin, cefepime, Flagyl, micafungin. Rey cultures are pending. Per discussion with GI, will not scope as endoscopy is high risk given his tenuous respiratory status this point. Slightly worse hypernatremia as well as worsening acute kidney injury this morning. 12/19: POD 1 s/p ex-lap, washout for perforated ascending colon with extended right hemicolectomy, primary ileocolic anastamosis, open abdomen, septic shock, acute hypoxic and hypercarbic respiratory failure. Significantly critically ill overnight: required 6L ivf resuscitation, 1 unit prbc, norepinephrine, vasopressin, stress dose hydrocortisone. This morning, remains on high-dose vasopressors. still has large volume ivf requirement. Significant SIRS response. Vent requirements increasing with all this volume resuscitation, PEEP up to 10. He remains critically ill, and although I do believe we have surgical source control, I anticipate he will continue to clinically decline before he starts to make improvements. 12/20: Off pressors. follows commands on sedation holiday. +11L over last 3 days during acute illness, +22L since admission. We are going to have to get some of this volume back before we are able to close him given his severe anasarca. 12/21: Taken back to the OR yesterday afternoon for washout and completion colectomy. Postoperatively was significantly under resuscitated as well as had ongoing active oozing. Patient was coagulopathy. The patient was in distributive and hemorrhagic shock. The patient was given multiple units of blood products overnight. Patient was thrombocytopenic, hypofibrinogenemic, coagulopathic. Given significant volume of blood product resuscitation: 24h blood products: 13 prbc 8 ffp 2 plt 1 10-pack cryo This morning continues to have significant amount of bright red output out of his BEV and wound VAC, approximately 500 cc an hour out of his wound VAC, and approximately 75 an mils every 10 minutes out of a BEV. I discussed with surgery and we will correct his coagulopathy and plan to go back to the OR for exploration early this afternoon. 12/22: Clinically starting to improve hemodynamically. off vasopressors. Net+ 26L. CVP rising to 14. UOP adequate. Hgb 7 this AM. 12/23 Seen postop. Hypertensive, BP improved with additional pain medicine. Remains net positive but urine output excellent 3L in 24 hours. Remains on Lasix gtt. went to OR today status post wound VAC change and partial closure 12/24: Fascia was closed yesterday. Wound Vac in place. Remains sedated. -2L negative balance, but with increasing BUN/creat. Discontinue Bumex infusion, start scheduled Bumex 2 mg IV every 12 with IV albumin. 12/25: Overnight became hypotensive requiring Levophed to be restarted. Hemoglobin dropped to 4.1. Noted to have bloody drainage from G-tube and dorsal ileostomy with black stool output 12/26: s/p EGD yesterday-2 gastric ulcers bleeding, stomach a significant part had decreased discoloration indicating probable ischemia. s/p epi injection and cauterization. Continues to have coffee ground G tube output, black tarry Ileostomy output. Hemoglobin down to 6.4 getting 2 units of PRBC. GI recent recommending intervention radiology consult Objective Vital Signs Date Time Temp Pulse Resp B/P Pulse Ox O2 Delivery O2 Flow Rate FiO2 12/27/15 09:11 100 40 12/27/15 06:00 102 12/27/15 04:00 96.8 20 137/83 Intake and Output 12/26/15 12/26/15 12/27/15 08:00 16:00 00:00 Intake Total 1806 ml 2981 ml 1522 ml Output Total 1165 ml 1400 ml 1670 ml Balance 641 ml 1581 ml -148 ml Result Diagram: 12/27/15 0815 12/26/15 0445 Imaging Last Impressions Chest X-Ray 12/17/15 0600 Signed Impressions: Service Date/Time: Thursday, December 17, 2015 03:25 - CONCLUSION: Persistent left lower lobe consolidation. Osmar Alegria MD Chest CT 12/14/15 0000 Signed Impressions: Service Date/Time: Monday, December 14, 2015 06:12 - CONCLUSION: 1. Cardiomegaly with bilateral consolidation, likely CHF. Pneumonia cannot be excluded. 2. Small right pleural effusion. Wojciech Lockhart MD Abdomen X-Ray 12/06/15 0000 Signed Impressions: Service Date/Time: November 09:53 - CONCLUSION: Nonspecific KUB. Air is seen within a mildly distended colon but contrast is clearly seen in the rectum. Arnaldo Reyes MD Abdomen/Pelvis CT 12/04/15 0000 Signed Impressions: Service Date/Time: Friday, December 04, 2015 16:24 - CONCLUSION: 1. Mildly distended small bowel in the mid and lower abdomen. Contrast is clearly seen extending into the distal small bowel and ascending colon so a complete obstruction is not seen. A transition point is not seen. This pattern likely represents an ileus versus a partial obstruction. 2. Multiple nonobstructing renal stones. 3. Abnormal appearance of the spleen which appears to represent a splenule. It could be correlated if the patient has had either primary splenic removal or splenic injury and this is what is either left of the spleen or a developing splenule. This is likely of no significance. 4. Mild ascites. 5. Increased density within the gallbladder representing either tumefactive sludge or noncalcified stones. 6. Mild bilateral pleural effusions with prominent areas of lower lobe atelectasis or consolidation at the bases bilaterally. 7. Subacute to chronic bilateral rib fractures and multiple compression fractures in the lower thoracic and lumbar spine as described above. The patient does have a prior CT examination from 08/26/2014. All the compression deformities described above are new when compared to that scan. Arnaldo Reyes MD Head CT 12/02/15 1013 Signed Impressions: Service Date/Time: Wednesday, December 02, 2015 11:00 - CONCLUSION: 1. No intracranial abnormality is seen. 2. Air-fluid level in the right maxillary sinus. Arnaldo Reyes MD Objective Remarks GENERAL: middle-aged male, lying in bed, intubated, sedated. critically ill. HEENT: anisocoric pupils L 6mm, R 5mm, reactive. mucous membranes moist. NECK: trachea midline. obese neck. difficult to assess JVD. left IJ triple lumen catheter in place, site is clean and dry without signs of erythema or drainage. RESPIRATORY: Intubated. Breath sounds equal bilaterally. coarse rales b/l. CARDIOVASCULAR: Tachycardic, regular without murmurs. GASTROINTESTINAL: Abdomen fascia is closed midline wound vac in place. BEV drain in left upper quadrant with sanguinous output. bloody drainage from G- tube and dorsal ileostomy with black tarry output MUSCULOSKELETAL: Generalized anasarca. Multiple open wounds in the lower extremity. RUE - with wound vac in place. L upper extremity dressing in place. NEURO: RASS - 3. Not following commands. Opens eye intermittently. 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 He has made improvements in his shock state. He is now severely volume overloaded given the large volume resuscitation he required for his shock. He also continues to have an DEIRDRE. We've made slight improvements in hemodynamics. However we are still grossly anasarca and volume overloaded. We need to start diuresing the patient with forced diuresis. This will be difficult given his ongoing acute kidney injury and the fact that I think that his renal function may be worsening and not improving. I have had numerous daily talks with his family about the fact that we may end up having to utilize renal replacement therapy in order to optimize his volume status and his abdomen closed and progress his care. I do not think we are at that point today. He still remains severely critically ill Neuro: Acute encephalopathy secondary to sepsis Acute pain secondary to multiple soft tissue infections Acute post-surgical pain Chronic pain -- Versed, fentanyl infusion for goal RASS -2. -- PRN Tylenol 1gm IV q8h for pain. Dilaudid 0.5-2mg iv q4h prn for breakthrough pain. -- d/cd ketamine drip 12/22. -- holding oral opiates. remains off home methadone given renal function 12/23/15 methadone 30mg iv x 1 as a loading dose to help with acute on chronic pain. Respiratory Acute respiratory failure-extubated 12/16/15, reintubated for surgery 12/18 Acute hypoxic and hypercarbic respiratory failure Acute healthcare associated pneumonia- resolved NIGEL on home CPAP --Extubated 12/15, reintubated for emergent ex-lap 12/18. ACV 550/18/10/45%. --Vent bundle. Head of bed at 30 degrees. Nebs q6h and q2h prn. --Hold of spontaneous breathing trials due to acute GI bleed, hemodynamically instability --Hold off tracheostomy due to acute GI bleed --CT chest 12/13 b/l consolidation with small right pleural effusion CV Hemorrhagic shock Septic Shock- resolved Volume overload --Norepinephrine for map goal > 65 mmHg. --Cortisol level was 14 on 12/14 --Stress dose steroids, hydrocortisone reduced to 50 q12 starting 12/25/15 --Echo 12/07 EF 65-70%, grade I diastolic dysfunction --continue to trend CVP. Renal: DEIRDRE Hypernatremia- Acute intravascular and total body volume overload --BUN/Cr s90/1.87. Holding Bumex 2 mg IV every 12 hours. Continue IV albumin. UO 1.5 l in 24 hours --Patient may need CRRT Lasix infusion discontinued 12/24/15. Bumex infusion discontinued 12/25/15 FEN/GI Acute GIB, hemorrhagic shock Perforated right colon with colitis s/p ex-lap, extended right hemicolectomy with primary ileocolic anastamosis, washout, open abdomen (12/18) Acute protein calorie malnutrition- severe Hypokalemia Total body volume overload Intravascular hypervolemia -- Protonix infusion. EGD 12/26/15 showed 2 large gastric ulcers with active bleeding status post epinephrine infusion and cauterization -- Patient continued to bleed today hemoglobin 6.4. Consulted IR and discussed with Dr. Yury Mckinney. Plan for angiography today 12/27/15 -- Status post transfusion of 2 units of PRBC. H&H every 8 hours. CBC INR and fibrinogen levels pending -- Keep nothing by mouth due to GI bleed, continue TPN. (TF recs per Nutrition Glucerna 1.5 at 60cc/hr) -- ICU electrolyte protocol -- Daily CMP -- OR on 12/24 with Removal of VAC, washout, pancreatic drain and pelvic drain placement, gastrostomy, feeding jejunostomy and closure of abdomen with application of VAC device in the subcutaneous tissue. Heme: Acute Anemia secondary to acute blood loss Thrombocytopenia Hypofibrinogenemia secondary to consumption and acute blood loss Coagulopathy secondary to consumption and acute blood loss --monitor CBC, monitor H&H every 8 hours. 2U PRBC today --Hep PLT ab negative on 12/03 --Platelets FFP fibrinogen as needed ID Severe sepsis Necrotizing Fascitis - MSSA on wound culture 12/07. Ecoli bacteremia 12/01 MSSA bacteremia 12/05. Cleared on f/u blood culture 12/07, 12/12. Leukocytosis Sepsis of Intra-abdominal origin. C. difficile toxic megacolon --Debridement 12/01 p.m at bedside by Dr Pedro and Dr. Hartmann --R hand, forearm and olecranon bursa I and D and Wound vac 12/07 Dr Chavez. --Continue IV cefepime,flagyl IV, micafungin. PO/intracolonic treatment for C.diff is contraindicated per --12/17 blood cultures: NGTD 12/17 central line culture: NGTD 12/17 urine cultures: NGTD 12/17 sputum cultures: NGTD C. difficile toxin 12/17: Negative (3rd negative toxin screen) --ID Dr. Becerra Endocrine: Hyperglycemia of Critical Illness Diabetes Presumed acute adrenal insufficiency Insulin drip algorithm 1. 20 U instulin to TPN and Moderate SSI. every 3 Accu- Cheks --continue hydrocortisone 50mg iv q12h. wean to DC Prophylaxis: GI Prophylaxis: -- Protonix IV infusion DVT Prophylaxis: -- SCDs --Receiving Lovenox 30 mg subcutaneous daily-discontinued due to acute GI bleed Lines: --L IJ CVL placed 12/13. The patient has significantly poor IV access given his multiple wounds. Does not appear to be infected. --We do have cultures that were drawn from the line that are NGTD. If these cultures turn positive, or he has signs of bacteremia, we will replace this line. -- Sandoval -- left axillary arterial line 12/18. Dispo: -- remain in the [facility]. He is severely critically ill. This patient remains critically ill with one or more organ systems which are or may become a threat to life. I have spent in excess of 55 minutes discontinuously in the care and management of this patient. This time is exclusive of procedures, and includes, but is not limited to, evaluation of the patient, review of the medical record, discussions with family, consultants, nursing staff, or respiratory therapy, and documentation in the medical record. Problem Qualifiers (1) Respiratory failure: Qualified Code: J96.00 - Acute respiratory failure, unspecified whether with hypoxia or hypercapnia (2) Altered mental status: Qualified Code: R41.0 - Delirium (3) Sepsis: Qualified Code: A41.9 - Sepsis, due to unspecified organism Audra Mcintosh MD Dec 27, 2015 11:25 Audra Mcintosh MD Dec 27, 2015 11:25
[2015-12-27] MEDS: HYDROCORTISONE SOD SUCCINATE 100 MG VIAL IV PUSH SCH ×2 (13:18→22:12)
[2015-12-27] MEDS: POVIDONE IODINE 10% OINT 30 GM TUBE TOPICAL SCH ×2 (13:18→13:21)
[2015-12-27] MEDS: SODIUM CHLOR 0.45% 1000 ML INJ 1,000 ML IV SCH (13:18)
[2015-12-27] MEDS: MICAFUNGIN INJ 150 MG in SODIUM CHLORIDE 0.9% INJ 100 ML IV SCH (13:19)
--- NOTE | 2015-12-27 14:09 | HHI.GIFU ---
Subjective Remarks Sedated on vent. Going down at 2pm for IR angiogram/embolization. Continues to have dark black liquid gastric secretions from G tube. Objective Vitals I&O Vital Signs Date Time Temp Pulse Resp B/P Pulse Ox O2 Delivery O2 Flow Rate FiO2 12/27/15 12:25 100 40 12/27/15 12:00 40 12/27/15 10:00 98 12/27/15 09:11 100 40 12/27/15 08:00 104 12/27/15 08:00 40 12/27/15 08:00 96.6 104 20 107/72 100 12/27/15 06:00 102 12/27/15 04:00 40 12/27/15 04:00 100 40 12/27/15 04:00 96.8 98 20 137/83 100 12/27/15 04:00 98 12/27/15 02:00 99 12/27/15 01:07 98 40 12/27/15 00:00 112 12/27/15 00:00 97.3 112 20 119/75 95 12/27/15 00:00 40 12/26/15 22:08 99 40 12/26/15 22:00 110 12/26/15 20:00 40 12/26/15 20:00 98.1 105 20 131/69 100 12/26/15 20:00 110 12/26/15 19:18 100 40 12/26/15 18:00 111 12/26/15 16:00 110 12/26/15 16:00 40 12/26/15 16:00 97.5 110 20 120/82 100 12/26/15 15:42 100 40 12/26/15 14:00 98 I/O 12/26/15 12/26/15 12/26/15 12/27/15 12/27/15 12/27/15 07:00 15:00 23:00 07:00 15:00 23:00 Intake Total 1806 ml 2981 ml 1522 ml 1372 ml Output Total 1165 ml 1400 ml 1670 ml 1270 ml Balance 641 ml 1581 ml -148 ml 102 ml IV Total 1378 ml 1221 ml 1522 ml 931 ml Tube Feeding 113 ml 43 ml TPN/PPN 315 ml 367 ml 276 ml Lipid 165 ml Albumin 100 ml Packed Cells 750 ml Other 500 ml Output Urine Total 450 ml 400 ml 575 ml 475 ml Stool Total 15 ml 100 ml 150 ml 100 ml Gastric Drainage Total 75 ml 100 ml 200 ml Drainage Total 625 ml 800 ml 745 ml 695 ml Laboratory Laboratory Tests Test 12/26/15 12/27/15 12/27/15 12/27/15 20:20 01:20 08:15 09:36 White Blood Count 37.8 Red Blood Count 2.77 Hemoglobin 8.1 8.9 6.4 Hematocrit 24.1 24.5 19.8 Mean Corpuscular Volume 87.0 Mean Corpuscular Hemoglobin 29.1 Mean Corpuscular Hemoglobin 33.5 Concent Red Cell Distribution Width 15.7 Platelet Count 118 Mean Platelet Volume 11.8 Neutrophils (%) (Auto) Lymphocytes (%) (Auto) Monocytes (%) (Auto) Eosinophils (%) (Auto) Basophils (%) (Auto) Neutrophils # (Auto) Lymphocytes # (Auto) Monocytes # (Auto) Eosinophils # (Auto) Basophils # (Auto) CBC Comment AUTO DIFF Differential Total Cells 100 Counted Neutrophils % (Manual) 74 Band Neutrophils % 3 Lymphocytes % 9 Monocytes % 9 Neutrophils # (Manual) 31.0 Metamyelocytes 2 Myelocytes 3 Nucleated Red Blood Cells 15 Differential Comment FINAL DIFF MANUAL Platelet Estimate LOW Platelet Morphology Comment NORMAL Acanthocytes OCC Prothrombin Time 13.4 Prothromb Time International 1.2 Ratio Fibrinogen 206 Blood Type B POSITIVE Crossmatch Leukocyte-Reduced Red Blood Cells Blood Bank Comment Imaging Last Impressions Chest X-Ray 12/25/15 0600 Signed Impressions: Service Date/Time: Friday, December 25, 2015 04:18 - CONCLUSION: Recent hazy opacity on the left may reflect a layering pleural effusion and consolidation. Improved aeration on the right. Arcadio Dickerson MD Abdomen/Pelvis CT 12/19/15 0000 Signed Impressions: Service Date/Time: Saturday, December 19, 2015 10:57 - CONCLUSION: 1. Adjacent volume pneumoperitoneum is observed consistent with perforation of a hollow viscus. This is presumably colonic in origin due to the diffuse inflammatory process involving the colon. I do not clearly identify the source of the pneumoperitoneum however. There is mild dilatation of the small bowel likely an ileus in nature. A significant volume of ascitic fluid is noted. 2. Bibasilar atelectasis and bilateral pleural effusions. 3. Small pericardial effusion. 4. Small bilateral nonobstructing renal calculi. 5. I spoke with Dr. Sanchez concerning the findings. Osmar Chavez Jr., MD Abdomen X-Ray 12/18/15 0000 Signed Impressions: Service Date/Time: Friday, December 18, 2015 16:05 - CONCLUSION: Feeding tube tip is at the gastric antrum. Arnaldo Elias MD Chest CT 12/14/15 0000 Signed Impressions: Service Date/Time: Monday, December 14, 2015 06:12 - CONCLUSION: 1. Cardiomegaly with bilateral consolidation, likely CHF. Pneumonia cannot be excluded. 2. Small right pleural effusion. Wojciech Lockhart MD Head CT 12/02/15 1013 Signed Impressions: Service Date/Time: Wednesday, December 02, 2015 11:00 - CONCLUSION: 1. No intracranial abnormality is seen. 2. Air-fluid level in the right maxillary sinus. Arnaldo Reyes MD Physical Exam HEENT: Normocephalic; atraumatic; no jaundice. CHEST: Resp. shallow, diminished. OETT to vent CARDIAC: ST ABDOMEN: Soft, nondistended. G tube with black gastric secretions. J tube with TF. Midline incision line with wound vac, RLQ ileostomy with black liquid stool EXTREMITIES: Generalized edema. RUE wound vac SKIN: Drsg to RUE, LUE, BLE. BREAD PANNER: Sedated on vent. Assessment and Plan Plan ASSESSMENT: - Upper GI bleed. Pt with significant anemia despite transfusions. S/P EGD ()-----> Large clots filling the stomach. There was active bleeding from small ulcerations next to the PEG tube that was cauterized and injected with lidocaine. Next to that area, about 1-2 cm, there was a large deep ulcer which was actively bleeding, injected with lidocaine and cauterized. SIgnificant amount of the stomach was grayish in color, possible ischemia, significant esophagitis. Continues to have bleeding, although he now has black liquid coming from the PEG and not red blood. He is going down for angiogram and embolization at 2pm in IR today. Pantoprazole Gtt. - Gastric ulcers, bleeding. S/P injection/cautery yesterday, still with black gastric secretions. HH 6.4/19.8 - Severe anemia. 6.4/19.8. S/P of 34 units of PRBC, 9 units FFP, 3 units Plt, 2 units pooled plt, 1 unit cryo. - Perforated right colon sec. to colitis, s/p ex-lap, extended right hemicolectomy with primary ileocolic anastomosis, washout, open abdomen (12/18) per surgery. Path suspicious for Ischemic vs. CDifficilie. S/P Exp. lap with subtotal colectomy (12/20). TPN, trickle feeds via J tube- made npo at 830 for scope this afternoon. - GERD, requiring daily antacids at home. PPI. - Severe sepsis with worsening leukocytosis. Cefepime, Micafungin, flagyl - RUE infection/wound. Per plastics/ID - Resp. Failure. Per CCM - DEIRDRE/Electrolyte abnormalities. Creat 1.87 - Chronic hepatitis C. S/P tx with Interferon/Ribavirin 6-7 years ago. reports that he was undetectable during treatment, but did not have a sustained virological response. He has never been told that he has liver cirrhosis. Liver biopsy (04/14/08)----> chronic hepatitis C with mild periportal inflammation grade 2 and mild fibrous portal expansion stage 1. He does not drink ETOH. PLAN: - NPO - PEG to LIWS - IR consulted for angiogram/embolization- going down at 2pm. - Protonix Gtt - Agree with transfusion - HH q6h x 4 - Transfuse as necessary - Abx per ID - GS following - CCM following - ID following - Supportive care - Further recommendations to follow based on results of above - Pt seen and examined by Dr. Altamirano and myself and this note is written on his behalf Lisa Monroy Dec 27, 2015 14:09
--- NOTE | 2015-12-27 14:20 | PD.CONS ---
HPI Service Urology Consult Requested By Reason for Consult Abnormal findings to scrotum and meatus Primary Care Physician Ramone Villa MD Diagnosis: History of Present Illness 55 year-old gentleman with sepsis, necrotizing fasciitis involving the upper extremities and ischemic colon. Patient is status post upper extremity debridement and and subtotal colectomy and presently being managed in the ICU where he is sedated, intubated and on a mechanical ventilator. Patient developed anasarca and was noted to have changes involving the scrotum and penile meatus. A urology consult was placed regarding these findings.. Review of Systems ROS Limitations: Intubated Past Family Social History Past Medical History Hepatitis C Obstructive sleep apnea Gout Rheumatoid arthritis Hypertension Migraine headaches Past Surgical History Status post splenectomy for trauma Status post left knee surgery Status post hip surgery Reported Medications Refer to EMR Allergies: Coded Allergies: Compazine (Verified Allergy, Severe, VOMITING, RASH, 08/26/14) SLURRED SPEECH, MIGRAINES Demerol (Verified Allergy, Severe, VOMITING, 08/26/14) Levaquin (Verified Allergy, Severe, 08/26/14) Penicillin (Verified Allergy, Severe, Rash, 08/26/14) Phenergan (Verified Allergy, Severe, VOMITING, 08/26/14) Uncoded Allergies: ANTI-CONVULSIVES (Allergy, Severe, MIGRAINES, SLURRED SPEECH,, 01/23/14) Active Ordered Medications Refer to EMR Family History Reviewed and noncontributory Social History No history tobacco, alcohol or I V drug abuse Physical Exam Vital Signs Vital Signs Date Time Temp Pulse Resp B/P Pulse Ox O2 Delivery O2 Flow Rate FiO2 12/27/15 12:25 100 40 12/27/15 12:00 40 12/27/15 10:00 98 12/27/15 09:11 100 40 12/27/15 08:00 104 12/27/15 08:00 40 12/27/15 08:00 96.6 104 20 107/72 100 12/27/15 06:00 102 12/27/15 04:00 40 12/27/15 04:00 100 40 12/27/15 04:00 96.8 98 20 137/83 100 12/27/15 04:00 98 12/27/15 02:00 99 12/27/15 01:07 98 40 12/27/15 00:00 112 12/27/15 00:00 97.3 112 20 119/75 95 12/27/15 00:00 40 12/26/15 22:08 99 40 12/26/15 22:00 110 12/26/15 20:00 40 12/26/15 20:00 98.1 105 20 131/69 100 12/26/15 20:00 110 12/26/15 19:18 100 40 12/26/15 18:00 111 12/26/15 16:00 110 12/26/15 16:00 40 12/26/15 16:00 97.5 110 20 120/82 100 12/26/15 15:42 100 40 Physical Exam Markedly edema of the penis and scrotum Difficult to palpate the testes due to the scrotal edema Small area of pressure necrosis involving the meatus related to the indwelling Sandoval No evidence of necrotizing fasciitis involving the genitalia Laboratory Laboratory Tests Test 12/26/15 12/27/15 12/27/15 12/27/15 20:20 01:20 08:15 09:36 White Blood Count 37.8 Red Blood Count 2.77 Hemoglobin 8.1 8.9 6.4 Hematocrit 24.1 24.5 19.8 Mean Corpuscular Volume 87.0 Mean Corpuscular Hemoglobin 29.1 Mean Corpuscular Hemoglobin 33.5 Concent Red Cell Distribution Width 15.7 Platelet Count 118 Mean Platelet Volume 11.8 Neutrophils (%) (Auto) Lymphocytes (%) (Auto) Monocytes (%) (Auto) Eosinophils (%) (Auto) Basophils (%) (Auto) Neutrophils # (Auto) Lymphocytes # (Auto) Monocytes # (Auto) Eosinophils # (Auto) Basophils # (Auto) CBC Comment AUTO DIFF Differential Total Cells 100 Counted Neutrophils % (Manual) 74 Band Neutrophils % 3 Lymphocytes % 9 Monocytes % 9 Neutrophils # (Manual) 31.0 Metamyelocytes 2 Myelocytes 3 Nucleated Red Blood Cells 15 Differential Comment FINAL DIFF MANUAL Platelet Estimate LOW Platelet Morphology Comment NORMAL Acanthocytes OCC Prothrombin Time 13.4 Prothromb Time International 1.2 Ratio Fibrinogen 206 Blood Type B POSITIVE Crossmatch Leukocyte-Reduced Red Blood Cells Blood Bank Comment Result Diagram: 12/27/15 0815 12/26/15 0445 Assessment and Plan Assessment and Plan Urologic impression: #1 penile scrotal edema related to a generalized process #2 small area of pressure necrosis involving the penile meatus related to the indwelling Sandoval #3 no evidence of Teja's gangrene involving the genitalia Recommendations: #1 no acute intervention indicated. #2 Will be available as needed. Solomon Olivares MD Dec 27, 2015 14:20
--- NOTE | 2015-12-27 15:29 | PD.RAD ---
Post Procedure Progress Note Pre Procedure Diagnosis: (1) GI bleed requiring more than 4 units of blood in 24 hours, ICU, or surgery Post Procedure Diagnosis: (1) GI bleed requiring more than 4 units of blood in 24 hours, ICU, or surgery Procedure Date: Dec 27, 2015 Supervising Radiologist: Robert Mckinney Estimated blood loss: 3cc Anesthesia: Local Plan of Activity Patient to Unit: Critical Care Patient Condition: Critical Additional Comments: angio completed with selective injection of the celiac origin, left gastric, gastroepiploic and SMA. No active GI bleed identified See PACS Report for procedural detail/treatment Robert Mckinney MD Dec 27, 2015 15:29
--- NOTE | 2015-12-27 15:34 | HHI.PR ---
Subjective Subjective Notes DAILY PROGRESS NOTE FOR SURGICAL ATTENDING, DR. NOMI MILLER Intubated/Sedated Objective Vitals/I&O Vital Signs Date Time Temp Pulse Resp B/P Pulse Ox O2 Delivery O2 Flow Rate FiO2 12/27/15 12:25 100 40 12/27/15 10:00 98 12/27/15 08:00 96.6 20 107/72 Labs Laboratory Tests Test 12/26/15 12/27/15 12/27/15 12/27/15 20:20 01:20 08:15 09:36 White Blood Count 37.8 Red Blood Count 2.77 Hemoglobin 8.1 8.9 6.4 Hematocrit 24.1 24.5 19.8 Mean Corpuscular Volume 87.0 Mean Corpuscular Hemoglobin 29.1 Mean Corpuscular Hemoglobin 33.5 Concent Red Cell Distribution Width 15.7 Platelet Count 118 Mean Platelet Volume 11.8 Neutrophils (%) (Auto) Lymphocytes (%) (Auto) Monocytes (%) (Auto) Eosinophils (%) (Auto) Basophils (%) (Auto) Neutrophils # (Auto) Lymphocytes # (Auto) Monocytes # (Auto) Eosinophils # (Auto) Basophils # (Auto) CBC Comment AUTO DIFF Differential Total Cells 100 Counted Neutrophils % (Manual) 74 Band Neutrophils % 3 Lymphocytes % 9 Monocytes % 9 Neutrophils # (Manual) 31.0 Metamyelocytes 2 Myelocytes 3 Nucleated Red Blood Cells 15 Differential Comment FINAL DIFF MANUAL Platelet Estimate LOW Platelet Morphology Comment NORMAL Acanthocytes OCC Prothrombin Time 13.4 Prothromb Time International 1.2 Ratio Fibrinogen 206 Blood Type B POSITIVE Crossmatch Leukocyte-Reduced Red Blood Cells Blood Bank Comment Radiology Last Impressions Chest X-Ray 12/28/15 0000 Signed Impressions: Service Date/Time: Monday, December 28, 2015 14:23 - CONCLUSION: Large left pleural effusion and left lung base consolidation. Freddy Connor MD Abdomen/Pelvis CT 12/19/15 0000 Signed Impressions: Service Date/Time: Saturday, December 19, 2015 10:57 - CONCLUSION: 1. Adjacent volume pneumoperitoneum is observed consistent with perforation of a hollow viscus. This is presumably colonic in origin due to the diffuse inflammatory process involving the colon. I do not clearly identify the source of the pneumoperitoneum however. There is mild dilatation of the small bowel likely an ileus in nature. A significant volume of ascitic fluid is noted. 2. Bibasilar atelectasis and bilateral pleural effusions. 3. Small pericardial effusion. 4. Small bilateral nonobstructing renal calculi. 5. I spoke with Dr. Sanchez concerning the findings. Osmar Chavez Jr., MD Abdomen X-Ray 12/18/15 0000 Signed Impressions: Service Date/Time: Friday, December 18, 2015 16:05 - CONCLUSION: Feeding tube tip is at the gastric antrum. Arnaldo Elias MD Chest CT 12/14/15 0000 Signed Impressions: Service Date/Time: Monday, December 14, 2015 06:12 - CONCLUSION: 1. Cardiomegaly with bilateral consolidation, likely CHF. Pneumonia cannot be excluded. 2. Small right pleural effusion. Wojciech Lockhart MD Head CT 12/02/15 1013 Signed Impressions: Service Date/Time: Wednesday, December 02, 2015 11:00 - CONCLUSION: 1. No intracranial abnormality is seen. 2. Air-fluid level in the right maxillary sinus. Arnaldo Reyes MD Cardiovascular: Regular Lungs: Clear Abdomen: Other (Wound vac in place; G/J tubes in place; BEV x 2 with SS drainage ; Ileostomy with dark stool ) Narrative Exam RIGHT arm with wound vac on Several abrasions with non adherent dressing in place A/P Problem List: (1) Dependent on ventilator (2) Open wound of abdomen (3) Ileostomy in place (4) Jejunostomy tube present (5) S/P total colectomy (6) Acute colitis (7) Gastrostomy tube in place Assessment and Plan 55 year old male s/p ex lap; s/p colectomy; G/J tube placement and would vac change -EGD shows gastric ulcer No bleeding by invasive radiology - -RIGHT arm wound vac per Dr. Mayela KEVIN Attending Statement NOTE FOR SURGICAL ATTENDING, DR. NOMI MILLER I agree with above assessment and plan. The exam, history, and the medical decision-making described in the above note were completed with the assistance of the mid-level provider. I reviewed and agree with the findings presented. I attest that I had a [id number] encounter with the patient on the same day, and personally performed and documented my assessment and findings in the medical record. Conference with Dr. Harrison critical care Reviewed Dr. renate Harper Md Review with family is critical condition Trach plan today Restart tube feeds The following services were provided during this hospital visit: Chart data review, vital sign assessments/reviewing monitor data Review of consultations notes if present. Medication orders/review and/or management Ordering and/or reviewing lab tests Ordering and/or interpreting/reviewing x-rays and/or diagnostic studies Care of the patient and discussion of the patient with the care team Documentation time To help prompt me to consider important information that might be impacting today's encounter and assessment, information from prior notes written by myself or my colleagues may have been "brought forward/copy and pasted" into today's note. Problem Qualifiers (1) Open wound of abdomen: Qualified Code: S31.109D - Open wound of abdomen, subsequent encounter Lurdes Felix Dec 27, 2015 15:34 Nomi Miller MD Dec 28, 2015 15:51
[2015-12-27] MEDS: MIDAZOLAM 100 MG/NS 100 ML DRIP Premix IV SCH (16:07)
[2015-12-27] MEDS ORDERED: IODIXANOL 320 MG/ML 50 ML VIAL (for RAD SPEC) I-ARTERIAL ONE (16:24)
[2015-12-27 16:44] LABS: HEMATOCRIT 28.7 % (39.0-51.0); MEAN CELL VOLUME 85.6 FL (80.0-100.0); MEAN CORPUSCULAR HEMOGLOBIN 28.5 PG (27.0-34.0); MEAN CORPUSCULAR HGB CONC 33.2 % (32.0-36.0); PLATELET COUNT 115 TH/MM3 (150-450); RED BLOOD COUNT 3.36 MIL/MM3 (4.50-5.90); RED CELL DISTRIBUTION WIDTH 17.1 % (11.6-17.2)
[2015-12-27 16:47] LABS: HEMO FLAGS AUTO DIFF
[2015-12-27 16:58] LABS: INTERNATIONAL NORMALIZED RATIO 1.2 RATIO; PROTHROMBIN TIME - PATIENT 12.8 SEC (9.8-11.6)
[2015-12-27 17:17] LABS: ALKALINE PHOSPHATASE 128 U/L (45-117); ALT (GPT) 12 U/L (12-78); ANION GAP 10 MEQ/L (5-15); AST (GOT) 37 U/L (15-37); BICARBONATE 22.9 MEQ/L (21.0-32.0); BLOOD UREA NITROGEN 99 MG/DL (7-18); CHLORIDE 118 MEQ/L (98-107); GLOMERULAR FILTRATION RATE 45 ML/MIN (>89); POTASSIUM 3.9 MEQ/L (3.5-5.1); SODIUM (NA) 151 MEQ/L (136-145); TOTAL BILIRUBIN ADULT 0.9 MG/DL (0.2-1.0)
[2015-12-27 17:44] LABS: BANDS 7 % (0-6); CORRECTED NUCLEATED RBC 6 /100 WBC (0-0); METAMYELOCYTES 2 % (0-1); MYELOCYTES 7 % (0-0); NEUTROPHIL # MANUAL DIFF 36.6 TH/MM3 (1.8-7.7); POLYS (SEG NEUTROPHILS) 69 % (16-70); WBC DIFF SAMPLE 100
[2015-12-27 17:45] LABS: ACANTHOCYTES 1+ (NORMAL); PLATELET ESTIMATE SMEAR LOW (NORMAL); PLATELET MORPHOLOGY NORMAL (NORMAL); POLYCHROMASIA 3.3 % (0.0-1.9); SCAN/DIFF FINAL DIFF MANUAL
[2015-12-27] MEDS: fentaNYL DRIP 250 ML IV SCH (18:00)
[2015-12-27] MEDS: POTASSIUM CHLORIDE IV-CENTRAL SCH ×10 (19:31)
[2015-12-27] MEDS: SODIUM ACETATE IV-CENTRAL SCH ×10 (19:31)
[2015-12-27] MEDS: [UNRECOGNIZED DRUG - OTHER] IV-CENTRAL SCH ×10 (19:31)
[2015-12-27 20:22] LABS: HEMATOCRIT 28.5 % (39.0-51.0)
[2015-12-27 20:25] LABS: REVIEW FLAG FINAL
[2015-12-28] VITALS (19 sets, daily range): BP systolic 107–144; BP diastolic 67–93; PULSE 92–116; RESP 20–22; TEMP 96.6–98.6; O2SAT 96–100
[2015-12-28 01:43] LABS: HEMATOCRIT 27.4 % (39.0-51.0)
[2015-12-28 01:44] LABS: REVIEW FLAG FINAL
[2015-12-28] MEDS: PANTOPRAZOLE INJ 80 MG in SODIUM CHLORIDE 0.9% INJ 100 ML IV SCH ×3 (02:31→23:01)
[2015-12-28] MEDS: CHLORHEXIDINE GLUCONATE 2 % 1 PACK (2 CLOTHS) TOP SCH (04:00)
[2015-12-28] MEDS: metroNIDAZOLE 500 MG INJ 100 ML IV SCH ×3 (04:37→22:01)
[2015-12-28] MEDS: CEFEPIME INJ 2,000 MG in SODIUM CHLORIDE 0.9% INJ 100 ML IV SCH ×2 (05:43→18:24)
[2015-12-28] MEDS: VASOPRESSIN INJ 40 UNITS in DEXTROSE 5% IN WATER 100ML INJ 98 ML IV SCH ×2 (06:10)
[2015-12-28] MEDS: fentaNYL DRIP 250 ML IV SCH (07:23)
[2015-12-28] MEDS: HYDROCORTISONE SOD SUCCINATE 100 MG VIAL IV PUSH SCH ×2 (08:49→22:02)
[2015-12-28] MEDS: POVIDONE IODINE 10% OINT 30 GM TUBE TOPICAL SCH (08:49)
[2015-12-28] MEDS: CHLORHEXIDINE 0.12% (ORAL KIT) 15 ML CUP MT SCH ×2 (08:49→22:03)
[2015-12-28 09:11] LABS: HEMATOCRIT 28.4 % (39.0-51.0)
[2015-12-28 09:21] LABS: REVIEW FLAG FINAL
[2015-12-28 10:03] LABS: DRAW SITE ART LINE
--- NOTE | 2015-12-28 10:11 | HHI.GIFU ---
Subjective Remarks Resting in bed. Went down for angiogram but source of bleeding was not identified. Nurse reports black drainage from G tube. (Lisa Monroy) Objective Vitals I&O Vital Signs Date Time Temp Pulse Resp B/P Pulse Ox O2 Delivery O2 Flow Rate FiO2 12/28/15 09:00 100 40 12/28/15 06:00 96 12/28/15 04:07 97 40 12/28/15 04:00 105 12/28/15 04:00 40 12/28/15 04:00 97.5 105 20 131/85 100 12/28/15 02:00 107 12/28/15 00:50 96 40 12/28/15 00:00 98.1 105 20 113/73 100 12/28/15 00:00 40 12/28/15 00:00 103 12/27/15 22:00 105 12/27/15 20:54 98 40 12/27/15 20:00 102 12/27/15 20:00 96.8 102 20 130/82 100 12/27/15 20:00 40 12/27/15 18:00 108 12/27/15 16:36 98 40 12/27/15 16:00 40 12/27/15 16:00 96.4 106 20 131/86 100 12/27/15 14:15 100 12/27/15 14:00 106 12/27/15 12:25 100 40 12/27/15 12:00 105 12/27/15 12:00 40 12/27/15 12:00 96.1 106 20 131/86 100 I/O 12/27/15 12/27/15 12/27/15 12/28/15 12/28/15 12/28/15 07:00 15:00 23:00 07:00 15:00 23:00 Intake Total 1372 ml 1446 ml 1648 ml 1035 ml Output Total 1270 ml 910 ml 1475 ml 1250 ml Balance 102 ml 536 ml 173 ml -215 ml IV Total 931 ml 618 ml 1322 ml 750 ml TPN/PPN 276 ml 328 ml 326 ml 285 ml Lipid 165 ml Packed Cells 500 ml Output Urine Total 475 ml 400 ml 475 ml 450 ml Stool Total 100 ml 100 ml 150 ml 50 ml Gastric Drainage Total 50 ml 100 ml 100 ml Drainage Total 695 ml 360 ml 750 ml 650 ml Laboratory Laboratory Tests Test 12/27/15 12/27/15 12/28/15 12/28/15 16:20 20:00 01:30 09:00 White Blood Count 43.0 Red Blood Count 3.36 Hemoglobin 9.6 9.3 9.0 9.1 Hematocrit 28.7 28.5 27.4 28.4 Mean Corpuscular Volume 85.6 Mean Corpuscular Hemoglobin 28.5 Mean Corpuscular Hemoglobin 33.2 Concent Red Cell Distribution Width 17.1 Platelet Count 115 Mean Platelet Volume 10.7 Neutrophils (%) (Auto) Lymphocytes (%) (Auto) Monocytes (%) (Auto) Eosinophils (%) (Auto) Basophils (%) (Auto) Neutrophils # (Auto) Lymphocytes # (Auto) Monocytes # (Auto) Eosinophils # (Auto) Basophils # (Auto) CBC Comment AUTO DIFF Differential Total Cells 100 Counted Neutrophils % (Manual) 69 Band Neutrophils % 7 Lymphocytes % 7 Monocytes % 8 Neutrophils # (Manual) 36.6 Metamyelocytes 2 Myelocytes 7 Nucleated Red Blood Cells 6 Differential Comment FINAL DIFF MANUAL Platelet Estimate LOW Platelet Morphology Comment NORMAL Polychromasia 3.3 Acanthocytes 1+ Prothrombin Time 12.8 Prothromb Time International 1.2 Ratio Fibrinogen 270 Sodium Level 151 Potassium Level 3.9 Chloride Level 118 Carbon Dioxide Level 22.9 Anion Gap 10 Blood Urea Nitrogen 99 Creatinine 1.62 Estimat Glomerular Filtration 45 Rate Random Glucose 150 Calcium Level 7.9 Total Bilirubin 0.9 Aspartate Amino Transf 37 (AST/SGOT) Alanine Aminotransferase 12 (ALT/SGPT) Alkaline Phosphatase 128 Total Protein 4.1 Albumin 2.0 Imaging Last Impressions Chest X-Ray 12/25/15 0600 Signed Impressions: Service Date/Time: Friday, December 25, 2015 04:18 - CONCLUSION: Recent hazy opacity on the left may reflect a layering pleural effusion and consolidation. Improved aeration on the right. Arcadio Dickerson MD Abdomen/Pelvis CT 12/19/15 0000 Signed Impressions: Service Date/Time: Saturday, December 19, 2015 10:57 - CONCLUSION: 1. Adjacent volume pneumoperitoneum is observed consistent with perforation of a hollow viscus. This is presumably colonic in origin due to the diffuse inflammatory process involving the colon. I do not clearly identify the source of the pneumoperitoneum however. There is mild dilatation of the small bowel likely an ileus in nature. A significant volume of ascitic fluid is noted. 2. Bibasilar atelectasis and bilateral pleural effusions. 3. Small pericardial effusion. 4. Small bilateral nonobstructing renal calculi. 5. I spoke with Dr. Sanchez concerning the findings. Osmar Chavez Jr., MD Abdomen X-Ray 12/18/15 0000 Signed Impressions: Service Date/Time: Friday, December 18, 2015 16:05 - CONCLUSION: Feeding tube tip is at the gastric antrum. Arnaldo Elias MD Chest CT 12/14/15 0000 Signed Impressions: Service Date/Time: Monday, December 14, 2015 06:12 - CONCLUSION: 1. Cardiomegaly with bilateral consolidation, likely CHF. Pneumonia cannot be excluded. 2. Small right pleural effusion. Wojciech Lockhart MD Head CT 12/02/15 1013 Signed Impressions: Service Date/Time: Wednesday, December 02, 2015 11:00 - CONCLUSION: 1. No intracranial abnormality is seen. 2. Air-fluid level in the right maxillary sinus. Arnaldo Reyes MD Physical Exam HEENT: Normocephalic; atraumatic; no jaundice. CHEST: Resp. shallow, diminished. OETT to vent CARDIAC: ST ABDOMEN: Soft, nondistended. G tube with black gastric secretions. J tube with TF. Midline incision line with wound vac, RLQ ileostomy with black liquid stool EXTREMITIES: Generalized edema. RUE wound vac SKIN: Drsg to RUE, LUE, BLE. 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 (Lisa MonroyP) Assessment and Plan Plan ASSESSMENT: - Upper GI bleed. Pt with significant anemia despite transfusions. S/P EGD ()-----> Large clots filling the stomach. There was active bleeding from small ulcerations next to the PEG tube that was cauterized and injected with lidocaine. Next to that area, about 1-2 cm, there was a large deep ulcer which was actively bleeding, injected with lidocaine and cauterized. SIgnificant amount of the stomach was grayish in color, possible ischemia, significant esophagitis. Went for angiogram with selective injection of the celiac origin, left gastric, gastroepiploic and SMA- No active GI bleed identified (12/27/15). Pt now with black gastric drainage from G tube, but HH is remaining stable. .03/15.4. Pantoprazole gtt. TPN. NPO. - Gastric ulcers, bleeding. S/P injection/cautery yesterday, still with black gastric secretions. .03/15.4. - Severe anemia. 6.4/19.8. S/P of 34 units of PRBC, 9 units FFP, 3 units Plt, 2 units pooled plt, 1 unit cryo. - Perforated right colon sec. to colitis, s/p ex-lap, extended right hemicolectomy with primary ileocolic anastomosis, washout, open abdomen (12/18) per surgery. Path suspicious for Ischemic vs. CDifficilie. S/P Exp. lap with subtotal colectomy (12/20). TPN, trickle feeds via J tube- made npo at 830 for scope this afternoon. - GERD, requiring daily antacids at home. PPI. - Severe sepsis with worsening leukocytosis. Cefepime, Micafungin, flagyl - RUE infection/wound. Per plastics/ID - Resp. Failure. Per CCM - DEIRDRE/Electrolyte abnormalities. Creat 1.87 - Chronic hepatitis C. S/P tx with Interferon/Ribavirin 6-7 years ago. reports that he was undetectable during treatment, but did not have a sustained virological response. He has never been told that he has liver cirrhosis. Liver biopsy (04/14/08)----> chronic hepatitis C with mild periportal inflammation grade 2 and mild fibrous portal expansion stage 1. He does not drink ETOH. PLAN: - NPO - PEG to LIWS - Cont. Protonix Gtt - Monitor H/H - Transfuse as necessary - Abx per ID - GS following - CCM following - ID following - Supportive care - Notify GI of active bleeding. - Further recommendations to follow based on results of above - Pt seen and examined by Dr. Altamirano and myself and this note is written on his behalf (Lisa Monroy) Physician Comments patient was seen and examined agree with above note and plan. we will sign off, please call us for any GI related issue (Sherrie Altamirano MD) Lisa Monroy Dec 28, 2015 10:11 Sherrie Altamirano MD Dec 28, 2015 18:13
[2015-12-28] MEDS ORDERED: VECURONIUM BROMIDE 10 MG VIAL IV PUSH ONE (11:30)
--- NOTE | 2015-12-28 11:30 | HHI.CCPN ---
Subjective Remarks/Hospital Course 55-year-old male brought by EMS with altered mental status. He has been confused for 2 days but this morning has been the worst. He has history of chronic opiate medications including methadone and morphine that he takes for pain management and hence they gave him Narcan IV which brought the GCS up to 13. The blood glucose was 74. He has open wounds from his right upper and bilateral lower extremities. He has history of hepatitis C. Last week he was pealing and eating shrimps. Bedside blood sugar was 76 in the ER. He was tachycardic in 1 teens and was intubated in the ED for airway protection. Admitted to ICU with sepsis due to Staph Aureus hand infection and E. Coli bacteriemia. 12/05 Patient remains sedated with Fentanyl and intubated. On Levophed 3 mics, Vasopressin 0.03 mics and Bicarb drip. T:99.8 TF placed on hold OGT to LIWS last night - gastric drainage 525ml overnight. 12/06 Patient is sedated with Fentanyl and intubated, On Levophed 3 mics, off vasopressin. Gastric output 400ml in 24 hrs. KUB abdomen yesterday mildly distended colon otherwise non specific KUB. 12/07 Patient is off sedation remains intubated tolerated CPAP for most day yesterday. Afebrile. on no drips, tolerating tube feeds. 12/08 Patient went to OR yesterday for debridement and irrigation of right forearm and wound VAC placement. Given 2U PRBC and 2u PLT yesterday and currently receiving 1of 2 u additional PRBC. Hgb 7.7, PLT 43 this morning. Patient also started on pressors now on Levophed 10 mics. Vasopressin 0.04 mics. On no sedation. 12/09 Patient remains intubated off pressors, Afebrile. Tolerating tube feeds. Afebrile. 12/10 Patient is sedated with Fentanyl and intubated. Awake and follows commands off sedation. Afebrile. 12/11 Patient had ?SVT overnight given Lopressor 2.5mg IV x1, Remains intubated and sedated with Fentanyl. Afebrile. Tolerating TF. 12/12 Patient spoked fever last night with T: 101.5, sedated with Fentanyl and intubated. 12/13 Patient had an episode of desaturation overnight required increase FIO2/ PEE now on ACV with RR 14, TV 550, PEEP: 12, FIO2 60% with sats 100% CT chest performed overnight showed b/l consolidation and small pleural effusion. Had T: 100.0 last night. 12/14 Tolerating PS 15/CPAP 10 FiO2 40% with rSBI 38, weaning. . Awake and alert , following commands. Hypotensive overnight and levophed restarted up to 12 mcg/ min. Nurse has been weaning throughout the day. Suspected adrenal insufficiency as he was on prednisone as outpatient for gout and has not been on stress dose steroids. Given decadron. 12/15 Transfused 1 unit PRBC for Hgb 7.0 yesterday, 1 unit PRBC for Hgb 6.6 today and now Hgb 8.3. Does not clinically have e/o active GI bleeding and wound vac output nonbloody. Stool 1500 output, C diff negative. No abdominal pain. Remains Awake and alert, remained on CPAP 10/5 last night and is now tolerating CPAP 5/5. 12/16: Extubated yesterday tolerating well. Breathing comfortably. Able to follow commands. UO 1.8 L in 24 hours. Na slightly increased to 153. 12/17: Significantly worse this AM. WBC up to 28 from 16. Hgb 5.2 from 7.9. tachycardic. pale this AM. states he feels tired. Continues on BiPAP. Plan for debridement of his arms today. LIJ CVL does not have any signs of overt infection. 12/18: Blood cell count continues to rise today to 30 from 28. Required 1 unit of blood for hemoglobin of 6.6 which improved to 7.7 this morning. However, patient remains tachycardic in the 120s and significantly pale. CT abdomen and pelvis ordered and pending. Tachypneic with respiratory rate in the 30s. Only small amount of dark tarry stool yesterday with approximately 300 cc of stool output. C. difficile toxin negative 3. After discussion with infectious disease, restart vancomycin, cefepime, Flagyl, micafungin. Rey cultures are pending. Per discussion with GI, will not scope as endoscopy is high risk given his tenuous respiratory status this point. Slightly worse hypernatremia as well as worsening acute kidney injury this morning. 12/19: POD 1 s/p ex-lap, washout for perforated ascending colon with extended right hemicolectomy, primary ileocolic anastamosis, open abdomen, septic shock, acute hypoxic and hypercarbic respiratory failure. Significantly critically ill overnight: required 6L ivf resuscitation, 1 unit prbc, norepinephrine, vasopressin, stress dose hydrocortisone. This morning, remains on high-dose vasopressors. still has large volume ivf requirement. Significant SIRS response. Vent requirements increasing with all this volume resuscitation, PEEP up to 10. He remains critically ill, and although I do believe we have surgical source control, I anticipate he will continue to clinically decline before he starts to make improvements. 12/20: Off pressors. follows commands on sedation holiday. +11L over last 3 days during acute illness, +22L since admission. We are going to have to get some of this volume back before we are able to close him given his severe anasarca. 12/21: Taken back to the OR yesterday afternoon for washout and completion colectomy. Postoperatively was significantly under resuscitated as well as had ongoing active oozing. Patient was coagulopathy. The patient was in distributive and hemorrhagic shock. The patient was given multiple units of blood products overnight. Patient was thrombocytopenic, hypofibrinogenemic, coagulopathic. Given significant volume of blood product resuscitation: 24h blood products: 13 prbc 8 ffp 2 plt 1 10-pack cryo This morning continues to have significant amount of bright red output out of his BEV and wound VAC, approximately 500 cc an hour out of his wound VAC, and approximately 75 an mils every 10 minutes out of a BEV. I discussed with surgery and we will correct his coagulopathy and plan to go back to the OR for exploration early this afternoon. 12/22: Clinically starting to improve hemodynamically. off vasopressors. Net+ 26L. CVP rising to 14. UOP adequate. Hgb 7 this AM. 12/23 Seen postop. Hypertensive, BP improved with additional pain medicine. Remains net positive but urine output excellent 3L in 24 hours. Remains on Lasix gtt. went to OR today status post wound VAC change and partial closure 12/24: Fascia was closed yesterday. Wound Vac in place. Remains sedated. -2L negative balance, but with increasing BUN/creat. Discontinue Bumex infusion, start scheduled Bumex 2 mg IV every 12 with IV albumin. 12/25: Overnight became hypotensive requiring Levophed to be restarted. Hemoglobin dropped to 4.1. Noted to have bloody drainage from G-tube and dorsal ileostomy with black stool output 12/26: s/p EGD yesterday-2 gastric ulcers bleeding, stomach a significant part had decreased discoloration indicating probable ischemia. s/p epi injection and cauterization. Continues to have coffee ground G tube output, black tarry Ileostomy output. Hemoglobin down to 6.4 getting 2 units of PRBC. GI recent recommending intervention radiology consult. 12/27: For trach today. Meds ordered. Hgb decline consistent with recent transfusions and senescent cells. Objective Vital Signs Date Time Temp Pulse Resp B/P Pulse Ox O2 Delivery O2 Flow Rate FiO2 12/28/15 10:00 92 12/28/15 09:00 100 40 12/28/15 08:00 96.6 20 139/85 Intake and Output 12/27/15 12/27/15 12/28/15 08:00 16:00 00:00 Intake Total 1372 ml 1446 ml 1648 ml Output Total 1270 ml 910 ml 1475 ml Balance 102 ml 536 ml 173 ml Result Diagram: 12/28/15 0900 12/27/15 1620 Imaging Last Impressions Chest X-Ray 12/17/15 0600 Signed Impressions: Service Date/Time: Thursday, December 17, 2015 03:25 - CONCLUSION: Persistent left lower lobe consolidation. Osmar Alegria MD Chest CT 12/14/15 0000 Signed Impressions: Service Date/Time: Monday, December 14, 2015 06:12 - CONCLUSION: 1. Cardiomegaly with bilateral consolidation, likely CHF. Pneumonia cannot be excluded. 2. Small right pleural effusion. Wojciech Lockhart MD Abdomen X-Ray 12/06/15 0000 Signed Impressions: Service Date/Time: November 09:53 - CONCLUSION: Nonspecific KUB. Air is seen within a mildly distended colon but contrast is clearly seen in the rectum. Arnaldo Reyes MD Abdomen/Pelvis CT 12/04/15 0000 Signed Impressions: Service Date/Time: Friday, December 04, 2015 16:24 - CONCLUSION: 1. Mildly distended small bowel in the mid and lower abdomen. Contrast is clearly seen extending into the distal small bowel and ascending colon so a complete obstruction is not seen. A transition point is not seen. This pattern likely represents an ileus versus a partial obstruction. 2. Multiple nonobstructing renal stones. 3. Abnormal appearance of the spleen which appears to represent a splenule. It could be correlated if the patient has had either primary splenic removal or splenic injury and this is what is either left of the spleen or a developing splenule. This is likely of no significance. 4. Mild ascites. 5. Increased density within the gallbladder representing either tumefactive sludge or noncalcified stones. 6. Mild bilateral pleural effusions with prominent areas of lower lobe atelectasis or consolidation at the bases bilaterally. 7. Subacute to chronic bilateral rib fractures and multiple compression fractures in the lower thoracic and lumbar spine as described above. The patient does have a prior CT examination from 08/26/2014. All the compression deformities described above are new when compared to that scan. Arnaldo Reyes MD Head CT 12/02/15 1013 Signed Impressions: Service Date/Time: Wednesday, December 02, 2015 11:00 - CONCLUSION: 1. No intracranial abnormality is seen. 2. Air-fluid level in the right maxillary sinus. Arnaldo Reyes MD Objective Remarks GENERAL: middle-aged male, lying in bed, intubated, sedated. remains critically ill. HEENT: anisocoric pupils L 6mm, R 5mm, reactive. mucous membranes moist. NECK: trachea midline. obese neck. difficult to assess JVD. left IJ triple lumen catheter in place, site clean, dry RESPIRATORY: Intubated. Breath sounds equal bilaterally. coarse crackles b/l. CARDIOVASCULAR: Tachycardic, regular rhythm without murmurs, rubs. No JVD. GASTROINTESTINAL: Abdomen fascia is closed midline wound vac in place. BEV drain in left upper quadrant with sanguinous output. bloody drainage from G-tube , dorsal ileostomy with black tarry output MUSCULOSKELETAL: Generalized anasarca. Multiple open wounds in the lower extremity. RUE - with wound vac in place. L upper extremity dressing in place. NEURO: RASS - 3. Not following commands. Opens eye intermittently. Remains on Versed and fentanyl. 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 He has made improvements in his shock state. He is now severely volume overloaded given the large volume resuscitation he required for his shock. He also continues to have an DEIRDRE. We've made slight improvements in hemodynamics. However we are still grossly anasarca and volume overloaded. We need to start diuresing the patient with forced diuresis. This will be difficult given his ongoing acute kidney injury and the fact that I think that his renal function may be worsening and not improving. I have had numerous daily talks with his family about the fact that we may end up having to utilize renal replacement therapy in order to optimize his volume status and his abdomen closed and progress his care. I do not think we are at that point today. He still remains severely critically ill Neuro: Acute encephalopathy secondary to sepsis Acute pain secondary to multiple soft tissue infections Acute post-surgical pain Chronic pain -- Versed, fentanyl infusion for goal RASS -2. -- PRN Tylenol 1gm IV q8h for pain. Dilaudid 0.5-2mg iv q4h prn for breakthrough pain. -- d/cd ketamine drip 12/22. -- holding oral opiates. remains off home methadone given renal function 12/23/15 methadone 30mg iv x 1 as a loading dose to help with acute on chronic pain. --Start to taper versed Respiratory Acute respiratory failure-extubated 12/16/15, reintubated for surgery 12/18 Acute hypoxic and hypercarbic respiratory failure Acute healthcare associated pneumonia- resolved NIGEL on home CPAP --Extubated 12/15, reintubated for emergent ex-lap 12/18. ACV 550/18/10/45%. --Vent bundle. Head of bed at 30 degrees. Nebs q6h and q2h prn. --Hold of spontaneous breathing trials due to acute GI bleed, hemodynamically instability --Hold off tracheostomy due to acute GI bleed --CT chest 12/13 b/l consolidation with small right pleural effusion CV Hemorrhagic shock Septic Shock- resolved Volume overload --Norepinephrine for map goal > 65 mmHg. --Cortisol level was 14 on 12/14 --Stress dose steroids, hydrocortisone reduced to 50 q12 starting 12/25/15 --Echo 12/07 EF 65-70%, grade I diastolic dysfunction --continue to trend CVP. Renal: DEIRDRE Hypernatremia- Acute intravascular and total body volume overload --BUN/Cr s90/1.87. Holding Bumex 2 mg IV every 12 hours. Continue IV albumin. UO 1.5 l in 24 hours --Patient may need CRRT Lasix infusion discontinued 12/24/15. Bumex infusion discontinued 12/25/15 -- [id number] azotemia persists while attempting to mobilize excess edema fluid. FEN/GI Acute GIB, hemorrhagic shock Perforated right colon with colitis s/p ex-lap, extended right hemicolectomy with primary ileocolic anastamosis, washout, open abdomen (12/18) Acute protein calorie malnutrition- severe Hypokalemia Total body volume overload Intravascular hypervolemia -- Protonix infusion. EGD 12/26/15 showed 2 large gastric ulcers with active bleeding status post epinephrine infusion and cauterization -- Patient continued to bleed today hemoglobin 6.4. Consulted IR and discussed with Dr. Yury Mckinney. Plan for angiography today 12/27/15 -- Status post transfusion of 2 units of PRBC. H&H every 8 hours. CBC INR and fibrinogen levels pending -- Keep nothing by mouth due to GI bleed, continue TPN. (TF recs per Nutrition Glucerna 1.5 at 60cc/hr) -- ICU electrolyte protocol -- Daily CMP -- OR on 12/24 with Removal of VAC, washout, pancreatic drain and pelvic drain placement, gastrostomy, feeding jejunostomy and closure of abdomen with application of VAC device in the subcutaneous tissue. --TFs via jejunostomy Heme: Acute Anemia secondary to acute blood loss Thrombocytopenia Hypofibrinogenemia secondary to consumption and acute blood loss Coagulopathy secondary to consumption and acute blood loss --monitor CBC, monitor H&H every 8 hours. 2U PRBC today --Hep PLT ab negative on 12/03 --Platelets FFP fibrinogen as needed --Trend Hgb ID Severe sepsis Necrotizing Fascitis - MSSA on wound culture 12/07. Ecoli bacteremia 12/01 MSSA bacteremia 12/05. Cleared on f/u blood culture 12/07, 12/12. Leukocytosis Sepsis of Intra-abdominal origin. C. difficile toxic megacolon --Debridement 12/01 p.m at bedside by Dr Pedro and Dr. Hartmann --R hand, forearm and olecranon bursa I and D and Wound vac 12/07 Dr Chavez. --Continue IV cefepime,flagyl IV, micafungin. PO/intracolonic treatment for C.diff is contraindicated per --12/17 blood cultures: NGTD 12/17 central line culture: NGTD 12/17 urine cultures: NGTD 12/17 sputum cultures: NGTD C. difficile toxin 12/17: Negative (3rd negative toxin screen) --ID Dr. Becerra Endocrine: Hyperglycemia of Critical Illness Diabetes Presumed acute adrenal insufficiency Insulin drip algorithm 1. 20 U instulin to TPN and Moderate SSI. every 3 Accu- Cheks --continue hydrocortisone 50mg iv q12h. wean to DC Prophylaxis: GI Prophylaxis: -- Protonix IV infusion DVT Prophylaxis: -- SCDs --Receiving Lovenox 30 mg subcutaneous daily-discontinued due to acute GI bleed Lines: --L IJ CVL placed 12/13. The patient has significantly poor IV access given his multiple wounds. Does not appear to be infected. --We do have cultures that were drawn from the line that are NGTD. If these cultures turn positive, or he has signs of bacteremia, we will replace this line. -- Sandoval -- left axillary arterial line 12/18. Dispo: -- remain in the [facility] and severely critically ill. This patient remains critically ill with dysfunction of several organ systems which are or may become a threat to life Critical care 38 mins Problem Qualifiers (1) Respiratory failure: Qualified Code: J96.00 - Acute respiratory failure, unspecified whether with hypoxia or hypercapnia (2) Altered mental status: Qualified Code: R41.0 - Delirium (3) Sepsis: Qualified Code: A41.9 - Sepsis, due to unspecified organism David Nick MD Dec 28, 2015 11:30
--- NOTE | 2015-12-28 12:13 | HHI.PR ---
Subjective Subjective Notes Daughter at bedside Asking if trach will be done today Patient is intubated/sedated Objective Vitals/I&O Vital Signs Date Time Temp Pulse Resp B/P Pulse Ox O2 Delivery O2 Flow Rate FiO2 12/28/15 11:45 98 40 12/28/15 10:00 92 12/28/15 08:00 96.6 20 139/85 Labs Laboratory Tests Test 12/27/15 12/27/15 12/28/15 12/28/15 16:20 20:00 01:30 09:00 White Blood Count 43.0 Red Blood Count 3.36 Hemoglobin 9.6 9.3 9.0 9.1 Hematocrit 28.7 28.5 27.4 28.4 Mean Corpuscular Volume 85.6 Mean Corpuscular Hemoglobin 28.5 Mean Corpuscular Hemoglobin 33.2 Concent Red Cell Distribution Width 17.1 Platelet Count 115 Mean Platelet Volume 10.7 Neutrophils (%) (Auto) Lymphocytes (%) (Auto) Monocytes (%) (Auto) Eosinophils (%) (Auto) Basophils (%) (Auto) Neutrophils # (Auto) Lymphocytes # (Auto) Monocytes # (Auto) Eosinophils # (Auto) Basophils # (Auto) CBC Comment AUTO DIFF Differential Total Cells 100 Counted Neutrophils % (Manual) 69 Band Neutrophils % 7 Lymphocytes % 7 Monocytes % 8 Neutrophils # (Manual) 36.6 Metamyelocytes 2 Myelocytes 7 Nucleated Red Blood Cells 6 Differential Comment FINAL DIFF MANUAL Platelet Estimate LOW Platelet Morphology Comment NORMAL Polychromasia 3.3 Acanthocytes 1+ Prothrombin Time 12.8 Prothromb Time International 1.2 Ratio Fibrinogen 270 Sodium Level 151 Potassium Level 3.9 Chloride Level 118 Carbon Dioxide Level 22.9 Anion Gap 10 Blood Urea Nitrogen 99 Creatinine 1.62 Estimat Glomerular Filtration 45 Rate Random Glucose 150 Calcium Level 7.9 Total Bilirubin 0.9 Aspartate Amino Transf 37 (AST/SGOT) Alanine Aminotransferase 12 (ALT/SGPT) Alkaline Phosphatase 128 Total Protein 4.1 Albumin 2.0 Cardiovascular: Regular Lungs: Clear Abdomen: Other (G/J tubes; midline incision with wound vac; ileostomy with dark stool ) Narrative Exam RIGHT arm with wound vac on Several abrasions with non adherent dressing in place A/P Problem List: (1) Dependent on ventilator (2) Open wound of abdomen (3) Ileostomy in place (4) Jejunostomy tube present (5) S/P total colectomy (6) Acute colitis (7) Gastrostomy tube in place Assessment and Plan 55 year old male s/p ex lap; s/p colectomy; G/J tube placement and would vac change -Plan for trach today at 1300 -Start trickle feed -IR yesterday saw now active bleeding -Hmg 9.0---stable today -EGD today shows gastric ulcer -RIGHT arm wound vac per Dr. Pedro -NPO -TPN -Discussed with daughter at bedside Attending Statement NOTE FOR SURGICAL ATTENDING, DR. WILIAM MILLER I agree with above assessment and plan. The exam, history, and the medical decision-making described in the above note were completed with the assistance of the mid-level provider. I reviewed and agree with the findings presented. I attest that I had a [id number] encounter with the patient on the same day, and personally performed and documented my assessment and findings in the medical record. Plan trach today Discussed with family The following services were provided during this hospital visit: Chart data review, vital sign assessments/reviewing monitor data Review of consultations notes if present. Medication orders/review and/or management Ordering and/or reviewing lab tests Ordering and/or interpreting/reviewing x-rays and/or diagnostic studies Care of the patient and discussion of the patient with the care team Documentation time To help prompt me to consider important information that might be impacting today's encounter and assessment, information from prior notes written by myself or my colleagues may have been "brought forward/copy and pasted" into today's note. Problem Qualifiers (1) Open wound of abdomen: Qualified Code: S31.109D - Open wound of abdomen, subsequent encounter Lurdes Felix Dec 28, 2015 12:13 Wiliam Miller MD Dec 28, 2015 15:56
[2015-12-28 13:24] LABS: BICARBONATE 22.8 MEQ/L (21.0-32.0); POTASSIUM 4.3 MEQ/L (3.5-5.1)
[2015-12-28 13:25] LABS: HEMATOCRIT 25.5 % (39.0-51.0)
[2015-12-28 13:26] LABS: REVIEW FLAG FINAL
--- NOTE | 2015-12-28 14:58 | RADRPT ---
EXAM DATE/TIME: 12/28/2015 14:23 [facility] COMPARISON: CHEST SINGLE AP, December 25, 2015, 4:18. INDICATIONS : Post tracheostomy placement. MEDICAL HISTORY : Hypertension. Hepatitis C. Hiatal hernia. Sleep apnea. SURGICAL HISTORY : Tonsillectomy. Back surgery. ENCOUNTER: Subsequent ACUITY: 1 month PAIN SCORE: Non-responsive. LOCATION: chest FINDINGS: Left IJ line is present with tip overlapping the expected region of the SVC. Tracheostomy tube is pre sent in satisfactory position. Large left pleural effusion is present with left lung base consolidati on and/or compressive collapse. The rest of the examination has not significantly changed. CONCLUSION: Large left pleural effusion and left lung base consolidation. Freddy Connor MD on December 28, 2015 at 14:55 Board Certified Radiologist. This report was verified electronically.
--- NOTE | 2015-12-28 15:09 | PD.PROCEDR ---
Procedure Note Procedure DX: Chronic Respiratory Failure (J96.11) OP: Therapeutic Flexible Bronchoscopy Procedure: On mechanical ventilation, rate 20. All ICU monitoring in place. Vecuronium 10 mg and fentanyl 100 mcs iv. Through elbow in ventilator circuit proximal to ET tube the bronchoscope was delivered to the main gregoria. Segments were inspected and large amounts of red tinged sputum were suction from the basilar bronchi. The bronchi were minimally inflamed, not friable. The gregoria was sharp. The main trachea was inspected during removal of the ET tube while placement of the percutaneous tracheostomy was performed. The main trachea was normal. Upon conversion to ventilation through the new trach tube normal volumes were returned and the upper bronchoscopy was repeated through the new trach, confirming good trach position. CXR confirmed good position and no atelectasis nor consolidation. David Nick MD Dec 28, 2015 15:09
[2015-12-28] MEDS: MICAFUNGIN INJ 150 MG in SODIUM CHLORIDE 0.9% INJ 100 ML IV SCH (15:18)
--- NOTE | 2015-12-28 15:58 | RADRPT ---
EXAM DATE/TIME: 12/27/2015 13:41 [place] COMPARISON: ANGIOGRAM, GASTRIC, December 27, 2015, 0:00. INDICATIONS : Patient with two bleeding gastric ulcers in need of angiogram. MEDICAL HISTORY : Hepatitis C virus acquired in 1978 after he donated blood Obstructive sleep apnea Gout Rheumatoid arthritis Hypertension Chronic low back pain Obstructive sleep apnea and wears 1 L oxygen at night Chronic migraines Osteopenia History of peritonitis in 1978 after splenectomy for trauma Necrotizing soft tissue infection, now with perforated ascending colon, extended right hemicolectomy with primary ileocolic anastomosis with gross contamination of the abdomen. 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 FLUORO TIME: 8.9 minutes ACCESS SITE: Right Femoral artery CONTRAST: 1.) 50 cc Visipaque (iodixanol) DEVICE(S): 1.) Right common femoral artery 6FR Angio-Seal PROCEDURE : 1. Ultrasound-guided puncture of the access site. 2. Angiography of the access site prior to closure device. 3. Conscious sedation with continuous EKG and Oximetry monitoring. 4. Percutaneous closure of the access site. 5. Angiography of the celiac axis 6. Angiography of the left gastric artery 7. Gastroepiploic artery 8. Superior mesenteric artery The risks, benefits and alternatives to the procedure were explained to the patient's via teleph one. Verbal, witnessed consent was obtained. The site was prepped in sterile fashion. Full sterile technique was used, including cap, mask, sterile gloves and gown and a large sterile sheet. Hand hyg iene and 2% chlorhexidine and/or betadine/alcohol prep was utilized per protocol for cutaneous antise psis. The skin and subcutaneous tissues were infiltrated with local anesthetic solution. With ultrasound and fluoroscopic guidance the selected artery was punctured and a vascular sheath was placed. Angiography of the common femoral artery was performed for evaluation prior to percutaneous closure device placement. A 0.035 angle Glidewire and 4 Slovak hook catheter were advanced into the abdominal aorta. The celiac axis was selected. Selective angiography of the celiac artery was preformed. The left gastric artery was identified. A 0.035 angled Glidewire and single endhole glide catheter were manipulated out the left gastric artery. Subselective injection of the left gastric was performed. The catheter was removed from the left gastric artery. The hepatic artery was selected. The catheter was advanced down into the gastroduodenal. Selective injection of the gastroduodenal with evaluation of the gastroepiploic circulation was performed. The catheter was removed from the celiac and the superior mesenteric artery was selected. Injection o f the superior mesenteric artery was performed. Results: The celiac and SMA are widely patent. The left gastric and gastroepiploic are widely patent. No activ e GI bleed was identified. Hemostasis was obtained with the prescribed medicated closure device. Conscious sedation was perform ed with the prescribed dosages and duration as above. EKG and oximetry remained stable throughout th e procedure. The patient was sent to post anesthesia recovery in stable condition. CONCLUSION: 1. No active GI bleed identified. Robert Mckinney MD on December 28, 2015 at 15:51 Board Certified Radiologist. This report was verified electronically.
--- NOTE | 2015-12-28 16:42 | HHI.IDPN ---
Subjective Subjective Remarks Better Stopped bleeding sp trach Pt was hypothermic earlier and required bear hugger off pressors on TPN on vent Antibiotics cefepime IV, IV flagyl, micafungin IV Lines RIJ and other Line sites with no e/o infection Past Medical History RA HCV sp splenectomy Allergies: Coded Allergies: Compazine (Verified Allergy, Severe, VOMITING, RASH, 08/26/14) SLURRED SPEECH, MIGRAINES Demerol (Verified Allergy, Severe, VOMITING, 08/26/14) Levaquin (Verified Allergy, Severe, 08/26/14) Penicillin (Verified Allergy, Severe, Rash, 08/26/14) Phenergan (Verified Allergy, Severe, VOMITING, 08/26/14) Uncoded Allergies: ANTI-CONVULSIVES (Allergy, Severe, MIGRAINES, SLURRED SPEECH,, 01/23/14) Objective . Vital Signs Date Time Temp Pulse Resp B/P Pulse Ox O2 Delivery O2 Flow Rate FiO2 12/28/15 14:00 110 12/28/15 13:45 100 100 12/28/15 12:00 98.6 101 20 107/67 98 12/28/15 12:00 101 12/28/15 12:00 40 12/28/15 11:45 98 40 12/28/15 10:00 92 12/28/15 09:00 100 40 12/28/15 08:00 94 12/28/15 08:00 96.6 94 20 139/85 100 12/28/15 08:00 40 12/28/15 06:00 96 12/28/15 04:07 97 40 12/28/15 04:00 105 12/28/15 04:00 40 12/28/15 04:00 97.5 105 20 131/85 100 12/28/15 02:00 107 12/28/15 00:50 96 40 12/28/15 00:00 98.1 105 20 113/73 100 12/28/15 00:00 40 12/28/15 00:00 103 12/27/15 22:00 105 12/27/15 20:54 98 40 12/27/15 20:00 102 12/27/15 20:00 96.8 102 20 130/82 100 12/27/15 20:00 40 12/27/15 18:00 108 12/27/15 16:36 98 40 12/27/15 12/27/15 12/28/15 15:00 23:00 07:00 Intake Total 1446 ml 1648 ml 1035 ml Output Total 910 ml 1475 ml 1250 ml Balance 536 ml 173 ml -215 ml IV Total 618 ml 1322 ml 750 ml TPN/PPN 328 ml 326 ml 285 ml Packed Cells 500 ml Output Urine Total 400 ml 475 ml 450 ml Stool Total 100 ml 150 ml 50 ml Gastric Drainage Total 50 ml 100 ml 100 ml Drainage Total 360 ml 750 ml 650 ml . Laboratory Tests Test 12/26/15 12/27/15 12/27/15 12/27/15 20:20 01:20 08:15 16:20 White Blood Count 37.8 TH/MM3 43.0 TH/MM3 Red Blood Count 2.77 MIL/MM3 3.36 MIL/MM3 Hemoglobin 8.1 GM/DL 8.9 GM/DL 6.4 GM/DL 9.6 GM/DL Hematocrit 24.1 % 24.5 % 19.8 % 28.7 % Mean Corpuscular Volume 87.0 FL 85.6 FL Mean Corpuscular Hemoglobin 29.1 PG 28.5 PG Mean Corpuscular Hemoglobin 33.5 % 33.2 % Concent Red Cell Distribution Width 15.7 % 17.1 % Platelet Count 118 TH/MM3 115 TH/MM3 Mean Platelet Volume 11.8 FL 10.7 FL Neutrophils (%) (Auto) % % Lymphocytes (%) (Auto) % % Monocytes (%) (Auto) % % Eosinophils (%) (Auto) % % Basophils (%) (Auto) % % Neutrophils # (Auto) TH/MM3 TH/MM3 Lymphocytes # (Auto) TH/MM3 TH/MM3 Monocytes # (Auto) TH/MM3 TH/MM3 Eosinophils # (Auto) TH/MM3 TH/MM3 Basophils # (Auto) TH/MM3 TH/MM3 CBC Comment AUTO DIFF AUTO DIFF Differential Total Cells 100 100 Counted Neutrophils % (Manual) 74 % 69 % Band Neutrophils % 3 % 7 % Lymphocytes % 9 % 7 % Monocytes % 9 % 8 % Neutrophils # (Manual) 31.0 TH/MM3 36.6 TH/MM3 Metamyelocytes 2 % 2 % Myelocytes 3 % 7 % Nucleated Red Blood Cells 15 /100 WBC 6 /100 WBC Differential Comment FINAL DIFF FINAL DIFF MANUAL MANUAL Platelet Estimate LOW LOW Platelet Morphology Comment NORMAL NORMAL Acanthocytes OCC 1+ Polychromasia 3.3 % Test 12/27/15 12/28/15 12/28/15 12/28/15 20:00 01:30 09:00 13:16 Hemoglobin 9.3 GM/DL 9.0 GM/DL 9.1 GM/DL 8.4 GM/DL Hematocrit 28.5 % 27.4 % 28.4 % 25.5 % Laboratory Tests Test 12/27/15 12/28/15 16:20 10:56 Sodium Level 151 MEQ/L 148 MEQ/L Potassium Level 3.9 MEQ/L 4.3 MEQ/L Chloride Level 118 MEQ/L 117 MEQ/L Carbon Dioxide Level 22.9 MEQ/L 22.8 MEQ/L Anion Gap 10 MEQ/L 8 MEQ/L Blood Urea Nitrogen 99 MG/DL 109 MG/DL Creatinine 1.62 MG/DL 1.60 MG/DL Estimat Glomerular Filtration 45 ML/MIN 45 ML/MIN Rate Random Glucose 150 MG/DL 135 MG/DL Calcium Level 7.9 MG/DL 7.7 MG/DL Total Bilirubin 0.9 MG/DL Aspartate Amino Transf 37 U/L (AST/SGOT) Alanine Aminotransferase 12 U/L (ALT/SGPT) Alkaline Phosphatase 128 U/L Total Protein 4.1 GM/DL Albumin 2.0 GM/DL Imaging Last Impressions Chest X-Ray 12/28/15 0000 Signed Impressions: Service Date/Time: Monday, December 28, 2015 14:23 - CONCLUSION: Large left pleural effusion and left lung base consolidation. Freddy Connor MD Abdomen/Pelvis CT 12/19/15 0000 Signed Impressions: Service Date/Time: Saturday, December 19, 2015 10:57 - CONCLUSION: 1. Adjacent volume pneumoperitoneum is observed consistent with perforation of a hollow viscus. This is presumably colonic in origin due to the diffuse inflammatory process involving the colon. I do not clearly identify the source of the pneumoperitoneum however. There is mild dilatation of the small bowel likely an ileus in nature. A significant volume of ascitic fluid is noted. 2. Bibasilar atelectasis and bilateral pleural effusions. 3. Small pericardial effusion. 4. Small bilateral nonobstructing renal calculi. 5. I spoke with Dr. Sanchez concerning the findings. Osmar Chavez Jr., MD Abdomen X-Ray 12/18/15 0000 Signed Impressions: Service Date/Time: Friday, December 18, 2015 16:05 - CONCLUSION: Feeding tube tip is at the gastric antrum. Arnaldo Elias MD Chest CT 12/14/15 0000 Signed Impressions: Service Date/Time: Monday, December 14, 2015 06:12 - CONCLUSION: 1. Cardiomegaly with bilateral consolidation, likely CHF. Pneumonia cannot be excluded. 2. Small right pleural effusion. Wojciech Lockhart MD Head CT 12/02/15 1013 Signed Impressions: Service Date/Time: Wednesday, December 02, 2015 11:00 - CONCLUSION: 1. No intracranial abnormality is seen. 2. Air-fluid level in the right maxillary sinus. Arnaldo Reyes MD Physical Exam GENERAL: On vent , SKIN: + mild jaundice. Anasarca HEENT: no icterus, NO nasal drainage orally intubated NECK: Trachea midline. Supple, nontender. CARDIOVASCULAR: systolic murmur in base of heart RESPIRATORY/CHEST: +scatteresd rhonchi on auscultation. Breath sounds equal bilaterally. GASTROINTESTINAL: Abdomen with VAC in place serosang dc and stoma in place with black very liquid stool GENITOURINARY: Sandoval catheter in place with clear light yellow urine scrotum is mildly edematous. Necrotic based ulcer at the base of penis shaft MUSCULOSKELETAL: Extremities no cyanosis, Edema less prominent 2+ NEUROLOGICAL: sedated, post procedeure LINES: NO evidence of infection Assessment & Plan Remarks Sepsis related to Cdiff and Intra abdominal peritonitis. - sp subtotal colectomy and ileostomy Cdiff Colitis Noted Cdiff PCR is negative3/3 ? Zinc preparation in perianal care could cause false negative test. Path c/o Cdiff Colitis. - repeat path favouring ischemia Bowel perforation related Abdominal peritonitis. Of note patient has been on steroids prior to and since 12/19/15 which is risk factor for perforation. RUE severe nec fasc 2/2 MSSA - skin grafting was planned, but cancelled - S/P I and D x 3 - RUE infx clinically resolved MSSA bacteremia 2/2 RUE infx - resolved per d/w . E.coli bacteremia on presentation -source is likely gut Immunosuppressed on steroids, s/p splenectomy. PCN allergy, but no probs with Keflex per report. ARF/ DEIRDRE/ATN 2/2 sepsis -stable More stable hemodynamically today Patient is critically ill. Sp upper GI bleeding - 2/2 bleeding gastric ulcer: stopped Severe leukocytsis, leukemoid reaction - reactive? Hypothermia, leukocytosis ? new sepsis - several risk factors including bowel perf and TPN PLAN: Continue IV cefepime,flagyl IV, micafungin IV chk blood clx Argelia Becerra MD Dec 28, 2015 16:42
[2015-12-28 21:17] LABS: HEMATOCRIT 28.3 % (39.0-51.0)
[2015-12-28 21:22] LABS: REVIEW FLAG FINAL
[2015-12-28] MEDS: [UNRECOGNIZED DRUG - OTHER] IV-CENTRAL SCH ×10 (22:02)
[2015-12-28] MEDS: POTASSIUM CHLORIDE IV-CENTRAL SCH ×10 (22:02)
[2015-12-28] MEDS: SODIUM ACETATE IV-CENTRAL SCH ×10 (22:02)
[2015-12-29] VITALS (19 sets, daily range): BP systolic 131–158; BP diastolic 81–96; PULSE 104–121; RESP 18–31; TEMP 97.2–99; O2SAT 93–100
[2015-12-29] MEDS: fentaNYL DRIP 250 ML IV SCH ×2 (02:57→05:22)
[2015-12-29] MEDS: metroNIDAZOLE 500 MG INJ 100 ML IV SCH ×3 (02:57→22:07)
[2015-12-29] MEDS: MIDAZOLAM 100 MG/NS 100 ML DRIP Premix IV SCH (02:57)
[2015-12-29] MEDS: INSULIN REGULAR (IV INFUSION) 100 UNITS in SODIUM CHLORIDE 0.9% INJ 99 ML IV SCH (03:43)
[2015-12-29] MEDS: CHLORHEXIDINE GLUCONATE 2 % 1 PACK (2 CLOTHS) TOP SCH (04:00)
[2015-12-29] MEDS: VASOPRESSIN INJ 40 UNITS in DEXTROSE 5% IN WATER 100ML INJ 98 ML IV SCH ×2 (04:24)
[2015-12-29] MEDS: CEFEPIME INJ 2,000 MG in SODIUM CHLORIDE 0.9% INJ 100 ML IV SCH ×2 (06:09→17:46)
[2015-12-29] MEDS: CHLORHEXIDINE 0.12% (ORAL KIT) 15 ML CUP MT SCH ×2 (08:00→22:07)
[2015-12-29] MEDS: POVIDONE IODINE 10% OINT 30 GM TUBE TOPICAL SCH (09:00)
--- NOTE | 2015-12-29 09:12 | HHI.CCPN ---
Subjective Remarks/Hospital Course 55-year-old male brought by EMS with altered mental status. He has been confused for 2 days but this morning has been the worst. He has history of chronic opiate medications including methadone and morphine that he takes for pain management and hence they gave him Narcan IV which brought the GCS up to 13. The blood glucose was 74. He has open wounds from his right upper and bilateral lower extremities. He has history of hepatitis C. Last week he was pealing and eating shrimps. Bedside blood sugar was 76 in the ER. He was tachycardic in 1 teens and was intubated in the ED for airway protection. Admitted to ICU with sepsis due to Staph Aureus hand infection and E. Coli bacteriemia. 12/05 Patient remains sedated with Fentanyl and intubated. On Levophed 3 mics, Vasopressin 0.03 mics and Bicarb drip. T:99.8 TF placed on hold OGT to LIWS last night - gastric drainage 525ml overnight. 12/06 Patient is sedated with Fentanyl and intubated, On Levophed 3 mics, off vasopressin. Gastric output 400ml in 24 hrs. KUB abdomen yesterday mildly distended colon otherwise non specific KUB. 12/07 Patient is off sedation remains intubated tolerated CPAP for most day yesterday. Afebrile. on no drips, tolerating tube feeds. 12/08 Patient went to OR yesterday for debridement and irrigation of right forearm and wound VAC placement. Given 2U PRBC and 2u PLT yesterday and currently receiving 1of 2 u additional PRBC. Hgb 7.7, PLT 43 this morning. Patient also started on pressors now on Levophed 10 mics. Vasopressin 0.04 mics. On no sedation. 12/09 Patient remains intubated off pressors, Afebrile. Tolerating tube feeds. Afebrile. 12/10 Patient is sedated with Fentanyl and intubated. Awake and follows commands off sedation. Afebrile. 12/11 Patient had ?SVT overnight given Lopressor 2.5mg IV x1, Remains intubated and sedated with Fentanyl. Afebrile. Tolerating TF. 12/12 Patient spoked fever last night with T: 101.5, sedated with Fentanyl and intubated. 12/13 Patient had an episode of desaturation overnight required increase FIO2/ PEE now on ACV with RR 14, TV 550, PEEP: 12, FIO2 60% with sats 100% CT chest performed overnight showed b/l consolidation and small pleural effusion. Had T: 100.0 last night. 12/14 Tolerating PS 15/CPAP 10 FiO2 40% with rSBI 38, weaning. . Awake and alert , following commands. Hypotensive overnight and levophed restarted up to 12 mcg/ min. Nurse has been weaning throughout the day. Suspected adrenal insufficiency as he was on prednisone as outpatient for gout and has not been on stress dose steroids. Given decadron. 12/15 Transfused 1 unit PRBC for Hgb 7.0 yesterday, 1 unit PRBC for Hgb 6.6 today and now Hgb 8.3. Does not clinically have e/o active GI bleeding and wound vac output nonbloody. Stool 1500 output, C diff negative. No abdominal pain. Remains Awake and alert, remained on CPAP 10/5 last night and is now tolerating CPAP 5/5. 12/16: Extubated yesterday tolerating well. Breathing comfortably. Able to follow commands. UO 1.8 L in 24 hours. Na slightly increased to 153. 12/17: Significantly worse this AM. WBC up to 28 from 16. Hgb 5.2 from 7.9. tachycardic. pale this AM. states he feels tired. Continues on BiPAP. Plan for debridement of his arms today. LIJ CVL does not have any signs of overt infection. 12/18: Blood cell count continues to rise today to 30 from 28. Required 1 unit of blood for hemoglobin of 6.6 which improved to 7.7 this morning. However, patient remains tachycardic in the 120s and significantly pale. CT abdomen and pelvis ordered and pending. Tachypneic with respiratory rate in the 30s. Only small amount of dark tarry stool yesterday with approximately 300 cc of stool output. C. difficile toxin negative 3. After discussion with infectious disease, restart vancomycin, cefepime, Flagyl, micafungin. Rey cultures are pending. Per discussion with GI, will not scope as endoscopy is high risk given his tenuous respiratory status this point. Slightly worse hypernatremia as well as worsening acute kidney injury this morning. 12/19: POD 1 s/p ex-lap, washout for perforated ascending colon with extended right hemicolectomy, primary ileocolic anastamosis, open abdomen, septic shock, acute hypoxic and hypercarbic respiratory failure. Significantly critically ill overnight: required 6L ivf resuscitation, 1 unit prbc, norepinephrine, vasopressin, stress dose hydrocortisone. This morning, remains on high-dose vasopressors. still has large volume ivf requirement. Significant SIRS response. Vent requirements increasing with all this volume resuscitation, PEEP up to 10. He remains critically ill, and although I do believe we have surgical source control, I anticipate he will continue to clinically decline before he starts to make improvements. 12/20: Off pressors. follows commands on sedation holiday. +11L over last 3 days during acute illness, +22L since admission. We are going to have to get some of this volume back before we are able to close him given his severe anasarca. 12/21: Taken back to the OR yesterday afternoon for washout and completion colectomy. Postoperatively was significantly under resuscitated as well as had ongoing active oozing. Patient was coagulopathy. The patient was in distributive and hemorrhagic shock. The patient was given multiple units of blood products overnight. Patient was thrombocytopenic, hypofibrinogenemic, coagulopathic. Given significant volume of blood product resuscitation: 24h blood products: 13 prbc 8 ffp 2 plt 1 10-pack cryo This morning continues to have significant amount of bright red output out of his BEV and wound VAC, approximately 500 cc an hour out of his wound VAC, and approximately 75 an mils every 10 minutes out of a BEV. I discussed with surgery and we will correct his coagulopathy and plan to go back to the OR for exploration early this afternoon. 12/22: Clinically starting to improve hemodynamically. off vasopressors. Net+ 26L. CVP rising to 14. UOP adequate. Hgb 7 this AM. 12/23 Seen postop. Hypertensive, BP improved with additional pain medicine. Remains net positive but urine output excellent 3L in 24 hours. Remains on Lasix gtt. went to OR today status post wound VAC change and partial closure 12/24: Fascia was closed yesterday. Wound Vac in place. Remains sedated. -2L negative balance, but with increasing BUN/creat. Discontinue Bumex infusion, start scheduled Bumex 2 mg IV every 12 with IV albumin. 12/25: Overnight became hypotensive requiring Levophed to be restarted. Hemoglobin dropped to 4.1. Noted to have bloody drainage from G-tube and dorsal ileostomy with black stool output 12/26: s/p EGD yesterday-2 gastric ulcers bleeding, stomach a significant part had decreased discoloration indicating probable ischemia. s/p epi injection and cauterization. Continues to have coffee ground G tube output, black tarry Ileostomy output. Hemoglobin down to 6.4 getting 2 units of PRBC. GI recent recommending intervention radiology consult. 12/27: For trach today. Meds ordered. Hgb decline consistent with recent transfusions and senescent cells. 12/28: Trach clean, dry. Start SBTs. Check prealbumin. Continue TPN. Objective Vital Signs Date Time Temp Pulse Resp B/P Pulse Ox O2 Delivery O2 Flow Rate FiO2 12/29/15 07:30 100 40 12/29/15 06:00 105 12/29/15 04:00 99.0 22 131/93 Intake and Output 12/28/15 12/28/15 12/29/15 08:00 16:00 00:00 Intake Total 1035 ml 1228 ml 1435 ml Output Total 1250 ml 1075 ml 940 ml Balance -215 ml 153 ml 495 ml Result Diagram: 12/28/15199912/28/15 1056 Imaging Last Impressions Chest X-Ray 12/17/15 0600 Signed Impressions: Service Date/Time: Thursday, December 17, 2015 03:25 - CONCLUSION: Persistent left lower lobe consolidation. Osmar Alegria MD Chest CT 12/14/15 0000 Signed Impressions: Service Date/Time: Monday, December 14, 2015 06:12 - CONCLUSION: 1. Cardiomegaly with bilateral consolidation, likely CHF. Pneumonia cannot be excluded. 2. Small right pleural effusion. Wojciech Lockhart MD Abdomen X-Ray 12/06/15 0000 Signed Impressions: Service Date/Time: November 09:53 - CONCLUSION: Nonspecific KUB. Air is seen within a mildly distended colon but contrast is clearly seen in the rectum. Arnaldo Reyes MD Abdomen/Pelvis CT 12/04/15 0000 Signed Impressions: Service Date/Time: Friday, December 04, 2015 16:24 - CONCLUSION: 1. Mildly distended small bowel in the mid and lower abdomen. Contrast is clearly seen extending into the distal small bowel and ascending colon so a complete obstruction is not seen. A transition point is not seen. This pattern likely represents an ileus versus a partial obstruction. 2. Multiple nonobstructing renal stones. 3. Abnormal appearance of the spleen which appears to represent a splenule. It could be correlated if the patient has had either primary splenic removal or splenic injury and this is what is either left of the spleen or a developing splenule. This is likely of no significance. 4. Mild ascites. 5. Increased density within the gallbladder representing either tumefactive sludge or noncalcified stones. 6. Mild bilateral pleural effusions with prominent areas of lower lobe atelectasis or consolidation at the bases bilaterally. 7. Subacute to chronic bilateral rib fractures and multiple compression fractures in the lower thoracic and lumbar spine as described above. The patient does have a prior CT examination from 08/26/2014. All the compression deformities described above are new when compared to that scan. Arnaldo Reyes MD Head CT 12/02/15 1013 Signed Impressions: Service Date/Time: Wednesday, December 02, 2015 11:00 - CONCLUSION: 1. No intracranial abnormality is seen. 2. Air-fluid level in the right maxillary sinus. Arnaldo Reyes MD Objective Remarks GENERAL: middle-aged male, lying in bed, intubated, sedated. remains critically ill. HEENT: anisocoric pupils L 6mm, R 5mm, reactive. mucous membranes moist. NECK: trachea midline. obese neck. difficult to assess JVD. left IJ triple lumen catheter in place, site clean, dry RESPIRATORY: Intubated. Breath sounds equal bilaterally. coarse crackles b/l. CARDIOVASCULAR: Tachycardic, regular rhythm without murmurs, rubs. No JVD. GASTROINTESTINAL: Abdomen fascia is closed midline wound vac in place. BEV drain in left upper quadrant with sanguinous output. bloody drainage from G-tube , dorsal ileostomy with black tarry output MUSCULOSKELETAL: Generalized anasarca. Multiple open wounds in the lower extremity. RUE - with wound vac in place. L upper extremity dressing in place. NEURO: RASS - 3. Not following commands. Opens eye intermittently. Remains on Versed and fentanyl. 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 He has made improvements in his shock state. He is now severely volume overloaded given the large volume resuscitation he required for his shock. He also continues to have an DEIRDRE. We've made slight improvements in hemodynamics. However we are still grossly anasarca and volume overloaded. We need to start diuresing the patient with forced diuresis. This will be difficult given his ongoing acute kidney injury and the fact that I think that his renal function may be worsening and not improving. I have had numerous daily talks with his family about the fact that we may end up having to utilize renal replacement therapy in order to optimize his volume status and his abdomen closed and progress his care. I do not think we are at that point today. He still remains severely critically ill Neuro: Acute encephalopathy secondary to sepsis Acute pain secondary to multiple soft tissue infections Acute post-surgical pain Chronic pain -- Versed, fentanyl infusion for goal RASS -2. -- PRN Tylenol 1gm IV q8h for pain. Dilaudid 0.5-2mg iv q4h prn for breakthrough pain. -- d/cd ketamine drip 12/22. -- holding oral opiates. remains off home methadone given renal function 12/23/15 methadone 30mg iv x 1 as a loading dose to help with acute on chronic pain. --Start to taper versed Respiratory Acute respiratory failure-extubated 12/16/15, reintubated for surgery 12/18 Acute hypoxic and hypercarbic respiratory failure Acute healthcare associated pneumonia- resolved NIGEL on home CPAP --Extubated 12/15, reintubated for emergent ex-lap 12/18. ACV 550/18/10/45%. --Vent bundle. Head of bed at 30 degrees. Nebs q6h and q2h prn. --Hold of spontaneous breathing trials due to acute GI bleed, hemodynamically instability --Hold off tracheostomy due to acute GI bleed --CT chest 12/13 b/l consolidation with small right pleural effusion --SBTs 01/23 CV Hemorrhagic shock Septic Shock- resolved Volume overload --Norepinephrine for map goal > 65 mmHg. --Cortisol level was 14 on 12/14 --Stress dose steroids, hydrocortisone reduced to 50 q12 starting 12/25/15 --Echo 12/07 EF 65-70%, grade I diastolic dysfunction --continue to trend CVP. Renal: DEIRDRE Hypernatremia- Acute intravascular and total body volume overload --BUN/Cr s90/1.87. Holding Bumex 2 mg IV every 12 hours. Continue IV albumin. UO 1.5 l in 24 hours --Patient may need CRRT Lasix infusion discontinued 12/24/15. Bumex infusion discontinued 12/25/15 -- [id number] azotemia persists while attempting to mobilize excess edema fluid. FEN/GI Acute GIB, hemorrhagic shock Perforated right colon with colitis s/p ex-lap, extended right hemicolectomy with primary ileocolic anastamosis, washout, open abdomen (12/18) Acute protein calorie malnutrition- severe Hypokalemia Total body volume overload Intravascular hypervolemia -- Protonix infusion. EGD 12/26/15 showed 2 large gastric ulcers with active bleeding status post epinephrine infusion and cauterization -- Patient continued to bleed today hemoglobin 6.4. Consulted IR and discussed with Dr. Yury Mckinney. Plan for angiography today 12/27/15 -- Status post transfusion of 2 units of PRBC. H&H every 8 hours. CBC INR and fibrinogen levels pending -- Keep nothing by mouth due to GI bleed, continue TPN. (TF recs per Nutrition Glucerna 1.5 at 60cc/hr) -- ICU electrolyte protocol -- Daily CMP -- OR on 12/24 with Removal of VAC, washout, pancreatic drain and pelvic drain placement, gastrostomy, feeding jejunostomy and closure of abdomen with application of VAC device in the subcutaneous tissue. --TFs via jejunostomy trickle, cont TPN until tolerated. Heme: Acute Anemia secondary to acute blood loss Thrombocytopenia Hypofibrinogenemia secondary to consumption and acute blood loss Coagulopathy secondary to consumption and acute blood loss --monitor CBC, monitor H&H every 8 hours. 2U PRBC today --Hep PLT ab negative on 12/03 --Platelets FFP fibrinogen as needed --Trend Hgb ID Severe sepsis Necrotizing Fascitis - MSSA on wound culture 12/07. Ecoli bacteremia 12/01 MSSA bacteremia 12/05. Cleared on f/u blood culture 12/07, 12/12. Leukocytosis Sepsis of Intra-abdominal origin. C. difficile toxic megacolon --Debridement 12/01 p.m at bedside by Dr Pedro and Dr. Hartmann --R hand, forearm and olecranon bursa I and D and Wound vac 12/07 Dr Chavez. --Continue IV cefepime,flagyl IV, micafungin. PO/intracolonic treatment for C.diff is contraindicated per --12/17 blood cultures: NGTD 12/17 central line culture: NGTD 12/17 urine cultures: NGTD 12/17 sputum cultures: NGTD C. difficile toxin 12/17: Negative (3rd negative toxin screen) --ID Dr. Becerra Endocrine: Hyperglycemia of Critical Illness Diabetes Presumed acute adrenal insufficiency Insulin drip algorithm 1. 20 U instulin to TPN and Moderate SSI. every 3 Accu- Cheks --continue hydrocortisone 50mg iv q12h. wean to DC Prophylaxis: GI Prophylaxis: -- Protonix IV infusion DVT Prophylaxis: -- SCDs --Receiving Lovenox 30 mg subcutaneous daily-discontinued due to acute GI bleed Lines: --L IJ CVL placed 12/13. The patient has significantly poor IV access given his multiple wounds. Does not appear to be infected. --We do have cultures that were drawn from the line that are NGTD. If these cultures turn positive, or he has signs of bacteremia, we will replace this line. -- Sandoval -- left axillary arterial line 12/18. --Replace CVL. Dispo: -- remains in the [facility] and severely critically ill, ventilator weaning failure, ongoing sepsis. This patient remains critically ill with dysfunction of several organ systems which are or may become a threat to life Critical care 34 mins Problem Qualifiers (1) Respiratory failure: Qualified Code: J96.00 - Acute respiratory failure, unspecified whether with hypoxia or hypercapnia (2) Altered mental status: Qualified Code: R41.0 - Delirium (3) Sepsis: Qualified Code: A41.9 - Sepsis, due to unspecified organism David Nick MD Dec 29, 2015 09:12
[2015-12-29] MEDS: PANTOPRAZOLE INJ 80 MG in SODIUM CHLORIDE 0.9% INJ 100 ML IV SCH ×2 (09:14→18:00)
[2015-12-29] MEDS: HYDROCORTISONE SOD SUCCINATE 100 MG VIAL IV PUSH SCH ×2 (09:15→22:07)
[2015-12-29 11:04] LABS: BICARBONATE 21.8 MEQ/L (21.0-32.0); POTASSIUM 4.1 MEQ/L (3.5-5.1)
[2015-12-29] MEDS: MICAFUNGIN INJ 150 MG in SODIUM CHLORIDE 0.9% INJ 100 ML IV SCH (13:15)
--- NOTE | 2015-12-29 14:20 | HHI.PR ---
Subjective Subjective Notes sedated on vent, no issues per RN, has been stable Objective Vitals/I&O Vital Signs Date Time Temp Pulse Resp B/P Pulse Ox O2 Delivery O2 Flow Rate FiO2 12/29/15 14:00 108 12/29/15 12:00 40 12/29/15 12:00 97.5 18 154/94 98 Labs Laboratory Tests Test 12/28/15 12/29/15 20:00 10:25 Hemoglobin 9.4 Hematocrit 28.3 Sodium Level 151 Potassium Level 4.1 Chloride Level 121 Carbon Dioxide Level 21.8 Anion Gap 8 Blood Urea Nitrogen 110 Creatinine 1.51 Estimat Glomerular Filtration 49 Rate Random Glucose 115 Calcium Level 7.7 Date/Time Procedure Status Source Growth 12/28/15 18:16 Aerobic Blood Culture - Preliminary Resulted Blood Peripheral NO GROWTH IN 1 DAY 12/28/15 18:16 Anaerobic Blood Culture - Final Resulted Blood Peripheral QNS - SEE AEROBE REPORT Radiology Last Impressions Chest X-Ray 12/28/15 0000 Signed Impressions: Service Date/Time: Monday, December 28, 2015 14:23 - CONCLUSION: Large left pleural effusion and left lung base consolidation. Freddy Connor MD Abdomen/Pelvis CT 12/19/15 0000 Signed Impressions: Service Date/Time: Saturday, December 19, 2015 10:57 - CONCLUSION: 1. Adjacent volume pneumoperitoneum is observed consistent with perforation of a hollow viscus. This is presumably colonic in origin due to the diffuse inflammatory process involving the colon. I do not clearly identify the source of the pneumoperitoneum however. There is mild dilatation of the small bowel likely an ileus in nature. A significant volume of ascitic fluid is noted. 2. Bibasilar atelectasis and bilateral pleural effusions. 3. Small pericardial effusion. 4. Small bilateral nonobstructing renal calculi. 5. I spoke with Dr. Sanchez concerning the findings. Osmar Chavez Jr., MD Abdomen X-Ray 12/18/15 0000 Signed Impressions: Service Date/Time: Friday, December 18, 2015 16:05 - CONCLUSION: Feeding tube tip is at the gastric antrum. Arnaldo Elias MD Chest CT 12/14/15 0000 Signed Impressions: Service Date/Time: Monday, December 14, 2015 06:12 - CONCLUSION: 1. Cardiomegaly with bilateral consolidation, likely CHF. Pneumonia cannot be excluded. 2. Small right pleural effusion. Wojciech Lockhart MD Head CT 12/02/15 1013 Signed Impressions: Service Date/Time: Wednesday, December 02, 2015 11:00 - CONCLUSION: 1. No intracranial abnormality is seen. 2. Air-fluid level in the right maxillary sinus. Arnaldo Reyes MD Abdomen: Post-op tenderness Narrative Exam Nurse from last night concerned about penile lesion, seen with Dr. Duran. appears to be pressure ulcer and not nec fasc. serous drainage noted around mark sites Wound Wound : Wound Location: Abdomen Dressing: VAC A/P Problem List: (1) Dependent on ventilator (2) Open wound of abdomen (3) Ileostomy in place (4) Jejunostomy tube present (5) S/P total colectomy (6) Acute colitis (7) Gastrostomy tube in place Assessment and Plan s/p exp lap colectomy stable, no signs further bleeding ostomy working well penile lesion likely pressure ulcer. increase TF to 20 Problem Qualifiers (1) Open wound of abdomen: Qualified Code: S31.109D - Open wound of abdomen, subsequent encounter Justice Oswald MD Dec 29, 2015 14:19
--- NOTE | 2015-12-29 15:10 | HHI.PR ---
Subjective Remarks Called to bedside to examine possible necrotic area at base of penis. Patient currently sedated. Objective Vital Signs Vital Signs Date Time Temp Pulse Resp B/P Pulse Ox O2 Delivery O2 Flow Rate FiO2 12/29/15 14:00 108 12/29/15 12:00 114 12/29/15 12:00 40 12/29/15 12:00 97.5 114 18 154/94 98 12/29/15 10:50 99 40 12/29/15 10:00 114 12/29/15 08:00 104 12/29/15 08:00 40 12/29/15 08:00 97.2 104 20 132/88 100 12/29/15 08:00 40 12/29/15 07:30 100 40 12/29/15 06:00 105 12/29/15 04:06 95 40 12/29/15 04:00 40 12/29/15 04:00 99.0 110 22 131/93 95 12/29/15 04:00 110 12/29/15 02:00 120 12/29/15 01:00 93 40 12/29/15 00:00 113 12/29/15 00:00 98.4 113 24 144/81 94 12/29/15 00:00 40 12/28/15 22:00 116 12/28/15 20:20 100 40 12/28/15 20:00 97.5 108 22 130/84 99 12/28/15 20:00 108 12/28/15 20:00 40 12/28/15 18:00 110 12/28/15 16:24 98 40 12/28/15 16:00 40 12/28/15 16:00 97.9 104 20 144/93 100 12/28/15 16:00 104 I/O 12/28/15 12/28/15 12/28/15 12/29/15 12/29/15 12/29/15 07:00 15:00 23:00 07:00 15:00 23:00 Intake Total 1035 ml 1228 ml 1435 ml 1098 ml 1305 ml Output Total 1250 ml 1075 ml 940 ml 1295 ml 1190 ml Balance -215 ml 153 ml 495 ml -197 ml 115 ml IV Total 750 ml 909 ml 1056 ml 741 ml 1172 ml Tube Feeding 44 ml 60 ml 73 ml TPN/PPN 285 ml 319 ml 335 ml 297 ml Other 60 ml Output Urine Total 450 ml 450 ml 450 ml 450 ml 625 ml Stool Total 50 ml 25 ml 100 ml 100 ml 25 ml Gastric Drainage Total 100 ml 25 ml 20 ml 125 ml 225 ml Drainage Total 650 ml 575 ml 370 ml 620 ml 315 ml Result Diagram: 12/28/15199912/29/15 1025 Objective Remarks NAD. abd soft, wound vac midline 2 x 2 cm pressure ulcer base of penis, no necrosis or eschar noted. Assessment and Plan Assessment and Plan 1. Pressure Ulcer - Likely from positioning of matos catheter being pulled cephalad, causing skin breakdown. Recommend repositioning matos catheter. No urological intervention required at this time. Discussed with Nurse. Carlos Enrique Duran MD Dec 29, 2015 15:10
[2015-12-29 15:34] LABS: HEMATOCRIT 28.9 % (39.0-51.0)
[2015-12-29 15:41] LABS: REVIEW FLAG FINAL
[2015-12-29] MEDS: SODIUM ACETATE IV-CENTRAL SCH ×10 (22:07)
[2015-12-29] MEDS: POTASSIUM CHLORIDE IV-CENTRAL SCH ×10 (22:07)
[2015-12-29] MEDS: [UNRECOGNIZED DRUG - OTHER] IV-CENTRAL SCH ×10 (22:07)
--- NOTE | 2015-12-29 22:56 | MP ---
cc: WILIAM MILLER DATE OF SURGERY 12/28/15 PREOPERATIVE DIAGNOSIS Ventilator dependence and needs tracheostomy tube. POSTOPERATIVE DIAGNOSIS Ventilator dependence and needs tracheostomy tube. PROCEDURE Percutaneous tracheostomy tube with bronchoscopic surveillance by Dr. Nick. ANESTHESIA Heavy sedation SURGEON Dr. Kenny Miller INDICATIONS This is a 55-year-old gentleman who is critically ill with necrotizing fasciitis and C diff colitis requiring a colectomy. He is ventilator dependent. Plans were made for above after discussion with family. PROCEDURE IN DETAIL He is in the ICU. He is sedated. He is on the ventilator. We prepped the neck with a CT scan with the prep kit contained with the blue rhino kit. Dr. Nick, the paint sprayer sandblaster, used the bronchoscope to identify the trachea. We inject the skin, subcutaneous tissue and get into two fingerbreadths above the sternal notch. The Angiocath was placed without difficulty. Guidewire was advanced and the punch dilator then is used over the guidewire and the blue rhino is then used to make a tract. A Shiley tracheostomy tube is then placed over the guidewire under videoscopic surveillance and confirmed in the trachea, secured to the skin with a nylon suture. After insufflating balloon, he is placed on the ventilator with excellent CO2 and oxygen waveform. After placed discussion with the family was done. Wiliam Miller MD [id number]/ /2:36 PM /10:41 PM
[2015-12-30] VITALS (17 sets, daily range): BP systolic 133–163; BP diastolic 82–100; PULSE 101–128; RESP 19–29; TEMP 97.7–99.3; O2SAT 93–100
[2015-12-30] MEDS: PANTOPRAZOLE INJ 80 MG in SODIUM CHLORIDE 0.9% INJ 100 ML IV SCH ×3 (02:00→13:28)
[2015-12-30] MEDS: VASOPRESSIN INJ 40 UNITS in DEXTROSE 5% IN WATER 100ML INJ 98 ML IV SCH ×2 (02:38)
[2015-12-30] MEDS: metroNIDAZOLE 500 MG INJ 100 ML IV SCH ×3 (03:27→20:29)
[2015-12-30] MEDS: CHLORHEXIDINE GLUCONATE 2 % 1 PACK (2 CLOTHS) TOP SCH (03:28)
[2015-12-30] MEDS: fentaNYL DRIP 250 ML IV SCH ×2 (03:29→18:43)
[2015-12-30 04:19] LABS: AUTOMATED NEUTROPHIL # 31.1 TH/MM3 (1.8-7.7); BASOPHIL % 0.1 % (0.0-2.0); HEMATOCRIT 26.2 % (39.0-51.0); LYMPH % 2.7 % (9.0-44.0); MEAN CORPUSCULAR HEMOGLOBIN 28.2 PG (27.0-34.0); MEAN CORPUSCULAR HGB CONC 31.7 % (32.0-36.0); MONO % 10.9 % (0.0-8.0); NEUT % 86.3 % (16.0-70.0); PLATELET COUNT 205 TH/MM3 (150-450); RED BLOOD COUNT 2.95 MIL/MM3 (4.50-5.90); RED CELL DISTRIBUTION WIDTH 17.7 % (11.6-17.2); WHITE BLOOD COUNT 36.1 TH/MM3 (4.0-11.0)
[2015-12-30 04:22] LABS: HEMO FLAGS AUTO DIFF
[2015-12-30 04:43] LABS: BICARBONATE 21.1 MEQ/L (21.0-32.0); POTASSIUM 3.7 MEQ/L (3.5-5.1)
[2015-12-30] MEDS: INSULIN REGULAR (IV INFUSION) 100 UNITS in SODIUM CHLORIDE 0.9% INJ 99 ML IV SCH (05:30)
[2015-12-30] MEDS: CEFEPIME INJ 2,000 MG in SODIUM CHLORIDE 0.9% INJ 100 ML IV SCH ×2 (05:30→17:49)
[2015-12-30 05:57] LABS: BANDS 2 % (0-6); CORRECTED NUCLEATED RBC 1 /100 WBC (0-0); METAMYELOCYTES 3 % (0-1); MYELOCYTES 2 % (0-0); NEUTROPHIL # MANUAL DIFF 31.8 TH/MM3 (1.8-7.7); POLYS (SEG NEUTROPHILS) 81 % (16-70); WBC DIFF SAMPLE 100
[2015-12-30 06:01] LABS: KERATOCYTES OCC (NORMAL); PLATELET ESTIMATE SMEAR NORMAL (NORMAL); PLATELET MORPHOLOGY NORMAL (NORMAL); SCAN/DIFF FINAL DIFF MANUAL
[2015-12-30] MEDS: CHLORHEXIDINE 0.12% (ORAL KIT) 15 ML CUP MT SCH ×2 (08:00→20:30)
[2015-12-30] MEDS: POVIDONE IODINE 10% OINT 30 GM TUBE TOPICAL SCH (08:47)
[2015-12-30] MEDS: HYDROCORTISONE SOD SUCCINATE 100 MG VIAL IV PUSH SCH ×2 (08:56→22:48)
[2015-12-30] MEDS: MICAFUNGIN INJ 150 MG in SODIUM CHLORIDE 0.9% INJ 100 ML IV SCH (13:27)
--- NOTE | 2015-12-30 13:32 | HHI.PR ---
Subjective Subjective Notes DAILY PROGRESS NOTE FOR SURGICAL ATTENDING, DR. NOMI MILLER Patient on ventilator with trach Tolerating tube feeds Family at bedside Objective Vitals/I&O Vital Signs Date Time Temp Pulse Resp B/P Pulse Ox O2 Delivery O2 Flow Rate FiO2 12/30/15 13:08 98 40 12/30/15 12:00 98.8 109 19 135/82 Labs Laboratory Tests Test 12/30/15 04:00 White Blood Count 36.1 Red Blood Count 2.95 Hemoglobin 8.3 Hematocrit 26.2 Mean Corpuscular Volume 89.0 Mean Corpuscular Hemoglobin 28.2 Mean Corpuscular Hemoglobin 31.7 Concent Red Cell Distribution Width 17.7 Platelet Count 205 Mean Platelet Volume 10.3 Neutrophils (%) (Auto) 86.3 Lymphocytes (%) (Auto) 2.7 Monocytes (%) (Auto) 10.9 Eosinophils (%) (Auto) 0.0 Basophils (%) (Auto) 0.1 Neutrophils # (Auto) 31.1 Lymphocytes # (Auto) 1.0 Monocytes # (Auto) 3.9 Eosinophils # (Auto) 0.0 Basophils # (Auto) 0.0 CBC Comment AUTO DIFF Differential Total Cells 100 Counted Neutrophils % (Manual) 81 Band Neutrophils % 2 Lymphocytes % 6 Monocytes % 6 Neutrophils # (Manual) 31.8 Metamyelocytes 3 Myelocytes 2 Nucleated Red Blood Cells 1 Differential Comment FINAL DIFF MANUAL Platelet Estimate NORMAL Platelet Morphology Comment NORMAL Keratocytes OCC Sodium Level 154 Potassium Level 3.7 Chloride Level 122 Carbon Dioxide Level 21.1 Anion Gap 11 Blood Urea Nitrogen 100 Creatinine 1.43 Estimat Glomerular Filtration 52 Rate Random Glucose 143 Calcium Level 7.8 Prealbumin 20 Date/Time Procedure Status Source Growth 12/28/15 18:16 Aerobic Blood Culture - Preliminary Resulted Blood Peripheral NO GROWTH IN 2 DAYS 12/28/15 18:16 Anaerobic Blood Culture - Final Resulted Blood Peripheral QNS - SEE AEROBE REPORT Radiology Last Impressions Chest X-Ray 12/28/15 0000 Signed Impressions: Service Date/Time: Monday, December 28, 2015 14:23 - CONCLUSION: Large left pleural effusion and left lung base consolidation. Freddy Connor MD Abdomen/Pelvis CT 12/19/15 0000 Signed Impressions: Service Date/Time: Saturday, December 19, 2015 10:57 - CONCLUSION: 1. Adjacent volume pneumoperitoneum is observed consistent with perforation of a hollow viscus. This is presumably colonic in origin due to the diffuse inflammatory process involving the colon. I do not clearly identify the source of the pneumoperitoneum however. There is mild dilatation of the small bowel likely an ileus in nature. A significant volume of ascitic fluid is noted. 2. Bibasilar atelectasis and bilateral pleural effusions. 3. Small pericardial effusion. 4. Small bilateral nonobstructing renal calculi. 5. I spoke with Dr. Sanchez concerning the findings. Osmar Chavez Jr., MD Abdomen X-Ray 12/18/15 0000 Signed Impressions: Service Date/Time: Friday, December 18, 2015 16:05 - CONCLUSION: Feeding tube tip is at the gastric antrum. Arnaldo Elias MD Chest CT 12/14/15 0000 Signed Impressions: Service Date/Time: Monday, December 14, 2015 06:12 - CONCLUSION: 1. Cardiomegaly with bilateral consolidation, likely CHF. Pneumonia cannot be excluded. 2. Small right pleural effusion. Wojciech Lockhart MD Head CT 12/02/15 1013 Signed Impressions: Service Date/Time: Wednesday, December 02, 2015 11:00 - CONCLUSION: 1. No intracranial abnormality is seen. 2. Air-fluid level in the right maxillary sinus. Arnaldo Reyes MD Cardiovascular: Regular Abdomen: Post-op tenderness Extremities: SCD's on Narrative Exam VAC in place Tolerating tube feeds G-tube no blood BEV with serous fluid Wound Wound : Wound Location: Abdomen Dressing: VAC (abdomen extremities ) A/P Problem List: (1) Dependent on ventilator (2) Open wound of abdomen (3) Ileostomy in place (4) Jejunostomy tube present (5) S/P total colectomy (6) Acute colitis (7) Gastrostomy tube in place Assessment and Plan 55 year old male s/p ex lap; s/p colectomy; G/J tube placement and would vac change Has tracheostomy in place Tolerating tube feeds -EGD shows gastric ulcer no more bleeding now No bleeding by invasive radiology - - arm wound vac per Dr. Pedro -TPN wean as increasing tube feeds Problem Qualifiers (1) Open wound of abdomen: Qualified Code: S31.109D - Open wound of abdomen, subsequent encounter Nomi Miller MD Dec 30, 2015 13:32
--- NOTE | 2015-12-30 15:13 | HHI.CCPN ---
Subjective Remarks/Hospital Course 55-year-old male brought by EMS with altered mental status. He has been confused for 2 days but this morning has been the worst. He has history of chronic opiate medications including methadone and morphine that he takes for pain management and hence they gave him Narcan IV which brought the GCS up to 13. The blood glucose was 74. He has open wounds from his right upper and bilateral lower extremities. He has history of hepatitis C. Last week he was pealing and eating shrimps. Bedside blood sugar was 76 in the ER. He was tachycardic in 1 teens and was intubated in the ED for airway protection. Admitted to ICU with sepsis due to Staph Aureus hand infection and E. Coli bacteriemia. 12/05 Patient remains sedated with Fentanyl and intubated. On Levophed 3 mics, Vasopressin 0.03 mics and Bicarb drip. T:99.8 TF placed on hold OGT to LIWS last night - gastric drainage 525ml overnight. 12/06 Patient is sedated with Fentanyl and intubated, On Levophed 3 mics, off vasopressin. Gastric output 400ml in 24 hrs. KUB abdomen yesterday mildly distended colon otherwise non specific KUB. 12/07 Patient is off sedation remains intubated tolerated CPAP for most day yesterday. Afebrile. on no drips, tolerating tube feeds. 12/08 Patient went to OR yesterday for debridement and irrigation of right forearm and wound VAC placement. Given 2U PRBC and 2u PLT yesterday and currently receiving 1of 2 u additional PRBC. Hgb 7.7, PLT 43 this morning. Patient also started on pressors now on Levophed 10 mics. Vasopressin 0.04 mics. On no sedation. 12/09 Patient remains intubated off pressors, Afebrile. Tolerating tube feeds. Afebrile. 12/10 Patient is sedated with Fentanyl and intubated. Awake and follows commands off sedation. Afebrile. 12/11 Patient had ?SVT overnight given Lopressor 2.5mg IV x1, Remains intubated and sedated with Fentanyl. Afebrile. Tolerating TF. 12/12 Patient spoked fever last night with T: 101.5, sedated with Fentanyl and intubated. 12/13 Patient had an episode of desaturation overnight required increase FIO2/ PEE now on ACV with RR 14, TV 550, PEEP: 12, FIO2 60% with sats 100% CT chest performed overnight showed b/l consolidation and small pleural effusion. Had T: 100.0 last night. 12/14 Tolerating PS 15/CPAP 10 FiO2 40% with rSBI 38, weaning. . Awake and alert , following commands. Hypotensive overnight and levophed restarted up to 12 mcg/ min. Nurse has been weaning throughout the day. Suspected adrenal insufficiency as he was on prednisone as outpatient for gout and has not been on stress dose steroids. Given decadron. 12/15 Transfused 1 unit PRBC for Hgb 7.0 yesterday, 1 unit PRBC for Hgb 6.6 today and now Hgb 8.3. Does not clinically have e/o active GI bleeding and wound vac output nonbloody. Stool 1500 output, C diff negative. No abdominal pain. Remains Awake and alert, remained on CPAP 10/5 last night and is now tolerating CPAP 5/5. 12/16: Extubated yesterday tolerating well. Breathing comfortably. Able to follow commands. UO 1.8 L in 24 hours. Na slightly increased to 153. 12/17: Significantly worse this AM. WBC up to 28 from 16. Hgb 5.2 from 7.9. tachycardic. pale this AM. states he feels tired. Continues on BiPAP. Plan for debridement of his arms today. LIJ CVL does not have any signs of overt infection. 12/18: Blood cell count continues to rise today to 30 from 28. Required 1 unit of blood for hemoglobin of 6.6 which improved to 7.7 this morning. However, patient remains tachycardic in the 120s and significantly pale. CT abdomen and pelvis ordered and pending. Tachypneic with respiratory rate in the 30s. Only small amount of dark tarry stool yesterday with approximately 300 cc of stool output. C. difficile toxin negative 3. After discussion with infectious disease, restart vancomycin, cefepime, Flagyl, micafungin. Rey cultures are pending. Per discussion with GI, will not scope as endoscopy is high risk given his tenuous respiratory status this point. Slightly worse hypernatremia as well as worsening acute kidney injury this morning. 12/19: POD 1 s/p ex-lap, washout for perforated ascending colon with extended right hemicolectomy, primary ileocolic anastamosis, open abdomen, septic shock, acute hypoxic and hypercarbic respiratory failure. Significantly critically ill overnight: required 6L ivf resuscitation, 1 unit prbc, norepinephrine, vasopressin, stress dose hydrocortisone. This morning, remains on high-dose vasopressors. still has large volume ivf requirement. Significant SIRS response. Vent requirements increasing with all this volume resuscitation, PEEP up to 10. He remains critically ill, and although I do believe we have surgical source control, I anticipate he will continue to clinically decline before he starts to make improvements. 12/20: Off pressors. follows commands on sedation holiday. +11L over last 3 days during acute illness, +22L since admission. We are going to have to get some of this volume back before we are able to close him given his severe anasarca. 12/21: Taken back to the OR yesterday afternoon for washout and completion colectomy. Postoperatively was significantly under resuscitated as well as had ongoing active oozing. Patient was coagulopathy. The patient was in distributive and hemorrhagic shock. The patient was given multiple units of blood products overnight. Patient was thrombocytopenic, hypofibrinogenemic, coagulopathic. Given significant volume of blood product resuscitation: 24h blood products: 13 prbc 8 ffp 2 plt 1 10-pack cryo This morning continues to have significant amount of bright red output out of his BEV and wound VAC, approximately 500 cc an hour out of his wound VAC, and approximately 75 an mils every 10 minutes out of a BEV. I discussed with surgery and we will correct his coagulopathy and plan to go back to the OR for exploration early this afternoon. 12/22: Clinically starting to improve hemodynamically. off vasopressors. Net+ 26L. CVP rising to 14. UOP adequate. Hgb 7 this AM. 12/23 Seen postop. Hypertensive, BP improved with additional pain medicine. Remains net positive but urine output excellent 3L in 24 hours. Remains on Lasix gtt. went to OR today status post wound VAC change and partial closure 12/24: Fascia was closed yesterday. Wound Vac in place. Remains sedated. -2L negative balance, but with increasing BUN/creat. Discontinue Bumex infusion, start scheduled Bumex 2 mg IV every 12 with IV albumin. 12/25: Overnight became hypotensive requiring Levophed to be restarted. Hemoglobin dropped to 4.1. Noted to have bloody drainage from G-tube and dorsal ileostomy with black stool output 12/26: s/p EGD yesterday-2 gastric ulcers bleeding, stomach a significant part had decreased discoloration indicating probable ischemia. s/p epi injection and cauterization. Continues to have coffee ground G tube output, black tarry Ileostomy output. Hemoglobin down to 6.4 getting 2 units of PRBC. GI recent recommending intervention radiology consult. 12/27: For trach today. Meds ordered. Hgb decline consistent with recent transfusions and senescent cells. 12/28: Trach clean, dry. Start SBTs. Check prealbumin. Continue TPN. 12/29: Looks in direction of voice. I have not seen more purposeful reactions. Line > 12 days old, replace today. Prealbumin 20 - good response to TPN. Objective Vital Signs Date Time Temp Pulse Resp B/P Pulse Ox O2 Delivery O2 Flow Rate FiO2 12/30/15 15:02 93 50 12/30/15 12:00 98.8 109 19 135/82 Intake and Output 12/29/15 12/29/15 12/29/15 07:59 15:59 23:59 Intake Total 1098 ml 1305 ml 1393 ml Output Total 1295 ml 1190 ml 1440 ml Balance -197 ml 115 ml -47 ml Result Diagram: 12/30/15 0400 12/30/15 0400 Imaging Last Impressions Chest X-Ray 12/17/15 0600 Signed Impressions: Service Date/Time: Thursday, December 17, 2015 03:25 - CONCLUSION: Persistent left lower lobe consolidation. Osmar Alegria MD Chest CT 12/14/15 0000 Signed Impressions: Service Date/Time: Monday, December 14, 2015 06:12 - CONCLUSION: 1. Cardiomegaly with bilateral consolidation, likely CHF. Pneumonia cannot be excluded. 2. Small right pleural effusion. Wojciech Lockhart MD Abdomen X-Ray 12/06/15 0000 Signed Impressions: Service Date/Time: November 09:53 - CONCLUSION: Nonspecific KUB. Air is seen within a mildly distended colon but contrast is clearly seen in the rectum. Arnaldo Reyes MD Abdomen/Pelvis CT 12/04/15 0000 Signed Impressions: Service Date/Time: Friday, December 04, 2015 16:24 - CONCLUSION: 1. Mildly distended small bowel in the mid and lower abdomen. Contrast is clearly seen extending into the distal small bowel and ascending colon so a complete obstruction is not seen. A transition point is not seen. This pattern likely represents an ileus versus a partial obstruction. 2. Multiple nonobstructing renal stones. 3. Abnormal appearance of the spleen which appears to represent a splenule. It could be correlated if the patient has had either primary splenic removal or splenic injury and this is what is either left of the spleen or a developing splenule. This is likely of no significance. 4. Mild ascites. 5. Increased density within the gallbladder representing either tumefactive sludge or noncalcified stones. 6. Mild bilateral pleural effusions with prominent areas of lower lobe atelectasis or consolidation at the bases bilaterally. 7. Subacute to chronic bilateral rib fractures and multiple compression fractures in the lower thoracic and lumbar spine as described above. The patient does have a prior CT examination from 08/26/2014. All the compression deformities described above are new when compared to that scan. Arnaldo Reyes MD Head CT 12/02/15 1013 Signed Impressions: Service Date/Time: Wednesday, December 02, 2015 11:00 - CONCLUSION: 1. No intracranial abnormality is seen. 2. Air-fluid level in the right maxillary sinus. Arnaldo Reyes MD Objective Remarks GENERAL: Middle-aged male, lying in bed, intubated. remains critically ill. HEENT: anisocoric pupils L 6mm, R 5mm, reactive. mucous membranes moist. NECK: trach in place. obese neck. difficult to assess JVD. left IJ triple lumen catheter in place, site clean, dry -> removed RESPIRATORY: Breath sounds equal bilaterally. coarse crackles b/l. Normal excursions on SBT. CARDIOVASCULAR: Tachycardic, regular rhythm without murmurs, rubs. No JVD. GASTROINTESTINAL: Abdomen fascia is closed midline wound vac in place. BEV drain in left upper quadrant with sanguinous output. bloody drainage from G-tube , MUSCULOSKELETAL: Generalized anasarca. Multiple open wounds in the lower extremity. RUE - with wound vac in place. L upper extremity dressing in place. NEURO: RASS - 3. Not following commands. Opens eye intermittently. Remains on fentanyl. 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 He has made improvements in his shock state. He is now severely volume overloaded given the large volume resuscitation he required for his shock. He also continues to have an DEIRDRE. We've made slight improvements in hemodynamics. However we are still grossly anasarca and volume overloaded. We need to start diuresing the patient with forced diuresis. This will be difficult given his ongoing acute kidney injury and the fact that I think that his renal function may be worsening and not improving. I have had numerous daily talks with his family about the fact that we may end up having to utilize renal replacement therapy. Neuro: Acute encephalopathy secondary to sepsis Acute pain secondary to multiple soft tissue infections Acute post-surgical pain Chronic pain -- Versed, fentanyl infusion for goal RASS -2. -- PRN Tylenol 1gm IV q8h for pain. Dilaudid 0.5-2mg iv q4h prn for breakthrough pain. -- d/cd ketamine drip 12/22. -- holding oral opiates. remains off home methadone given renal function 12/23/15 methadone 30mg iv x 1 as a loading dose to help with acute on chronic pain. --Start to taper versed Respiratory Acute respiratory failure-extubated 12/16/15, reintubated for surgery 12/18 Acute hypoxic and hypercarbic respiratory failure Acute healthcare associated pneumonia- resolved NIGEL on home CPAP --Extubated 12/15, reintubated for emergent ex-lap 12/18. ACV 550/18/10/45%. --Vent bundle. Head of bed at 30 degrees. Nebs q6h and q2h prn. --Hold of spontaneous breathing trials due to acute GI bleed, hemodynamically instability --Hold off tracheostomy due to acute GI bleed --CT chest 12/13 b/l consolidation with small right pleural effusion --SBTs 01/23 CV Hemorrhagic shock Septic Shock- resolved Volume overload --Norepinephrine for map goal > 65 mmHg. --Cortisol level was 14 on 12/14 --Stress dose steroids, hydrocortisone reduced to 50 q12 starting 12/25/15 --Echo 12/07 EF 65-70%, grade I diastolic dysfunction Renal: DEIRDRE Hypernatremia- Acute intravascular and total body volume overload --BUN/Cr s90/1.87. Holding Bumex 2 mg IV every 12 hours. Continue IV albumin. UO 1.5 l in 24 hours --Patient may need CRRT Lasix infusion discontinued 12/24/15. Bumex infusion discontinued 12/25/15 -- prerenal azotemia persists while attempting to mobilize excess edema fluid. FEN/GI Acute GIB, hemorrhagic shock Perforated right colon with colitis s/p ex-lap, extended right hemicolectomy with primary ileocolic anastamosis, washout, open abdomen (12/18) Acute protein calorie malnutrition- severe Hypokalemia Total body volume overload Intravascular hypervolemia -- Protonix infusion. EGD 12/26/15 showed 2 large gastric ulcers with active bleeding status post epinephrine infusion and cauterization -- Patient continued to bleed today hemoglobin 6.4. Consulted IR and discussed with Dr. Yury Mckinney. Plan for angiography today 12/27/15 -- Status post transfusion of 2 units of PRBC. H&H every 8 hours. CBC INR and fibrinogen levels pending -- Keep nothing by mouth due to GI bleed, continue TPN. (TF recs per Nutrition Glucerna 1.5 at 60cc/hr) -- ICU electrolyte protocol -- Daily CMP -- OR on 12/24 with Removal of VAC, washout, pancreatic drain and pelvic drain placement, gastrostomy, feeding jejunostomy and closure of abdomen with application of VAC device in the subcutaneous tissue. --TFs via jejunostomy trickle, cont TPN until better tolerated. Heme: Acute Anemia secondary to acute blood loss Thrombocytopenia Hypofibrinogenemia secondary to consumption and acute blood loss Coagulopathy secondary to consumption and acute blood loss --monitor CBC, monitor H&H every 8 hours. 2U PRBC today --Hep PLT ab negative on 12/03 --Platelets FFP fibrinogen as needed --Trend Hgb ID Severe sepsis Necrotizing Fascitis - MSSA on wound culture 12/07. Ecoli bacteremia 12/01 MSSA bacteremia 12/05. Cleared on f/u blood culture 12/07, 12/12. Leukocytosis Sepsis of Intra-abdominal origin. C. difficile toxic megacolon --Debridement 12/01 p.m at bedside by Dr Pedro and Dr. Hartmann --R hand, forearm and olecranon bursa I and D and Wound vac 12/07 Dr Chavez. --Continue IV cefepime,flagyl IV, micafungin. PO/intracolonic treatment for C.diff is contraindicated per --12/17 blood cultures: NGTD 12/17 central line culture: NGTD 12/17 urine cultures: NGTD 12/17 sputum cultures: NGTD C. difficile toxin 12/17: Negative (3rd negative toxin screen) --ID Dr. Becerra Endocrine: Hyperglycemia of Critical Illness Diabetes Presumed acute adrenal insufficiency Insulin drip algorithm 1. 20 U instulin to TPN and Moderate SSI. every 3 Accu- Cheks --continue hydrocortisone 50mg iv q12h. wean to DC Prophylaxis: GI Prophylaxis: -- Protonix IV infusion DVT Prophylaxis: -- SCDs --Receiving Lovenox 30 mg subcutaneous daily-discontinued due to acute GI bleed Lines: --L IJ CVL placed 12/13. The patient has significantly poor IV access given his multiple wounds. Does not appear to be infected. --We do have cultures that were drawn from the line that are NGTD. If these cultures turn positive, or he has signs of bacteremia, we will replace this line. -- Sandoval -- left axillary arterial line 12/18. -- Left SCV CVL 12/29 Dispo: -- He remains in the [facility] and severely critically ill, ventilator weaning failure , ongoing sepsis. Critical Care 42 mins aside from procedures Problem Qualifiers (1) Respiratory failure: Qualified Code: J96.00 - Acute respiratory failure, unspecified whether with hypoxia or hypercapnia (2) Altered mental status: Qualified Code: R41.0 - Delirium (3) Sepsis: Qualified Code: A41.9 - Sepsis, due to unspecified organism David Nick MD Dec 30, 2015 15:13
--- NOTE | 2015-12-30 15:14 | PD.PROCEDR ---
Procedure Note Procedure DX: Severe Sepsis (A41.9) OP: Insertion Right Subclavian Central Venous Line (10616) Procedure: Left chest prepped and draped. Left subclavian vein cannulated with thin walled needle and wire easily advanced. Catheter passed over wire to 18 cm. Lumens aspirated and flushed. Dressing applied. CXR ordered , will review. David Nick MD Dec 30, 2015 15:14
[2015-12-30] MEDS ORDERED: GLUCAGON 1 MG/ML VIAL OTHER PRN (15:30)
[2015-12-30] MEDS: INSULIN ASPART SUPPLEMENTAL SCALE SQ SCH ×2 (15:30→18:00)
[2015-12-30] MEDS ORDERED: DEXTROSE 50% IN WATER 50 ML VIAL(D50) IV PUSH PRN (15:30)
--- NOTE | 2015-12-30 15:48 | RADRPT ---
EXAM DATE/TIME: 12/30/2015 15:31 [facility] COMPARISON: CT ABDOMEN & PELVIS W CONTRAST, December 19, 2015, 10:57. CHEST SINGLE AP, December 28, 2015, 14:23. INDICATIONS : Right sided CVL placement. MEDICAL HISTORY : Hypertension. Hepatitis C. Hiatal hernia. SURGICAL HISTORY : Tonsillectomy. ENCOUNTER: Subsequent ACUITY: 1 month PAIN SCORE: Non-responsive. LOCATION: Right chest FINDINGS: There is placement of a right subclavian venous catheter terminating at the right atrial level with n o evidence of pneumothorax. Tracheostomy remains in place as well as left jugular venous catheter. Hy poattenuation is appreciated with clear right lung field and stable opacity in left mid and basilar l marleny field most likely representing in part effusion and/or parenchymal process. CONCLUSION: Place a right subclavian venous catheter terminating at the right atrial level. No pneumothorax. Othe rwise stable chest.. Jared Medina MD on December 30, 2015 at 15:45 Board Certified Radiologist. This report was verified electronically.
[2015-12-30 15:54] LABS: BLOOD GAS VENOUS BASE EXCESS -3.5 mmol/L (-2-2); BLOOD GAS VENOUS HCO3 21 mmol/L (22-26); BLOOD GAS VENOUS O2 CONTENT 8.9 Vol % (9.0-17.0); BLOOD GAS VENOUS O2 HGB SAT 72 % (70-76); BLOOD GAS VENOUS PCO2 37 mmHg (44-48); BLOOD GAS VENOUS PO2 41 mmHg (35-40); BLOOD GAS VENOUS pH 7.37 (7.360-7.400); CRITICAL VALUE NO; DRAW SITE CENTRAL LINE; FIO2 50 %; OXYGEN DEVICE VENTILATOR; STAT NO; TEMP CORR TO 98.6
[2015-12-30] MEDS: HYDROmorphone HCL PF 1 MG/ML VIAL IV PUSH PRN (18:52)
[2015-12-30] MEDS: [UNRECOGNIZED DRUG - OTHER] IV-CENTRAL SCH ×10 (20:29)
[2015-12-30] MEDS: POTASSIUM CHLORIDE IV-CENTRAL SCH ×10 (20:29)
[2015-12-30] MEDS: SODIUM ACETATE IV-CENTRAL SCH ×10 (20:29)
[2015-12-30] MEDS: INSULIN DETEMIR 100 UNITS/ML VIAL SQ SCH (20:30)
[2015-12-30] MEDS: FAT EMULSION 20% INJ 250 ML (Twice weekly over 8 hours) IV-CENTRAL SCH (20:33)
[2015-12-31] VITALS (19 sets, daily range): BP systolic 140–154; BP diastolic 90–100; PULSE 112–129; RESP 21–29; TEMP 99.1–99.7; O2SAT 96–100
[2015-12-31] MEDS: fentaNYL DRIP 250 ML IV SCH (00:22)
[2015-12-31] MEDS: HYDROmorphone HCL PF 1 MG/ML VIAL IV PUSH PRN ×2 (00:22→06:41)
[2015-12-31] MEDS: INSULIN ASPART SUPPLEMENTAL SCALE SQ SCH ×5 (00:32→23:59)
[2015-12-31] MEDS: VASOPRESSIN INJ 40 UNITS in DEXTROSE 5% IN WATER 100ML INJ 98 ML IV SCH ×4 (00:52→22:59)
[2015-12-31] MEDS: CHLORHEXIDINE GLUCONATE 2 % 1 PACK (2 CLOTHS) TOP SCH (02:05)
[2015-12-31] MEDS: metroNIDAZOLE 500 MG INJ 100 ML IV SCH ×3 (04:00→19:56)
[2015-12-31 05:11] LABS: AUTOMATED NEUTROPHIL # 37.2 TH/MM3 (1.8-7.7); BASOPHIL # 0.1 TH/MM3 (0-0.2); BASOPHIL % 0.3 % (0.0-2.0); HEMATOCRIT 29.4 % (39.0-51.0); LYMPH % 2.4 % (9.0-44.0); MEAN CELL VOLUME 91.8 FL (80.0-100.0); MEAN CORPUSCULAR HEMOGLOBIN 29.2 PG (27.0-34.0); MEAN CORPUSCULAR HGB CONC 31.8 % (32.0-36.0); NEUT % 87.3 % (16.0-70.0); PLATELET COUNT 267 TH/MM3 (150-450); RED BLOOD COUNT 3.21 MIL/MM3 (4.50-5.90); RED CELL DISTRIBUTION WIDTH 18.8 % (11.6-17.2); WHITE BLOOD COUNT 42.6 TH/MM3 (4.0-11.0)
[2015-12-31 05:15] LABS: HEMO FLAGS AUTO DIFF
[2015-12-31 05:57] LABS: BICARBONATE 19.3 MEQ/L (21.0-32.0); POTASSIUM 4.1 MEQ/L (3.5-5.1)
[2015-12-31] MEDS: CEFEPIME INJ 2,000 MG in SODIUM CHLORIDE 0.9% INJ 100 ML IV SCH ×2 (06:23→17:24)
[2015-12-31 06:51] LABS: BANDS 4 % (0-6); METAMYELOCYTES 1 % (0-1); NEUTROPHIL # MANUAL DIFF 37.9 TH/MM3 (1.8-7.7); PLATELET ESTIMATE SMEAR NORMAL (NORMAL); POLYS (SEG NEUTROPHILS) 84 % (16-70); SCAN/DIFF FINAL DIFF MANUAL; WBC DIFF SAMPLE 100
[2015-12-31 06:52] LABS: PLATELET MORPHOLOGY ENLARGED (NORMAL)
[2015-12-31] MEDS: CHLORHEXIDINE 0.12% (ORAL KIT) 15 ML CUP MT SCH ×2 (08:00→19:57)
[2015-12-31] MEDS: INSULIN DETEMIR 100 UNITS/ML VIAL SQ SCH ×2 (09:00→22:18)
[2015-12-31] MEDS: POVIDONE IODINE 10% OINT 30 GM TUBE TOPICAL SCH (09:00)
--- NOTE | 2015-12-31 09:21 | HHI.CCPN ---
Subjective Remarks/Hospital Course 55-year-old male brought by EMS with altered mental status. He has been confused for 2 days but this morning has been the worst. He has history of chronic opiate medications including methadone and morphine that he takes for pain management and hence they gave him Narcan IV which brought the GCS up to 13. The blood glucose was 74. He has open wounds from his right upper and bilateral lower extremities. He has history of hepatitis C. Last week he was pealing and eating shrimps. Bedside blood sugar was 76 in the ER. He was tachycardic in 1 teens and was intubated in the ED for airway protection. Admitted to ICU with sepsis due to Staph Aureus hand infection and E. Coli bacteriemia. 12/05 Patient remains sedated with Fentanyl and intubated. On Levophed 3 mics, Vasopressin 0.03 mics and Bicarb drip. T:99.8 TF placed on hold OGT to LIWS last night - gastric drainage 525ml overnight. 12/06 Patient is sedated with Fentanyl and intubated, On Levophed 3 mics, off vasopressin. Gastric output 400ml in 24 hrs. KUB abdomen yesterday mildly distended colon otherwise non specific KUB. 12/07 Patient is off sedation remains intubated tolerated CPAP for most day yesterday. Afebrile. on no drips, tolerating tube feeds. 12/08 Patient went to OR yesterday for debridement and irrigation of right forearm and wound VAC placement. Given 2U PRBC and 2u PLT yesterday and currently receiving 1of 2 u additional PRBC. Hgb 7.7, PLT 43 this morning. Patient also started on pressors now on Levophed 10 mics. Vasopressin 0.04 mics. On no sedation. 12/09 Patient remains intubated off pressors, Afebrile. Tolerating tube feeds. Afebrile. 12/10 Patient is sedated with Fentanyl and intubated. Awake and follows commands off sedation. Afebrile. 12/11 Patient had ?SVT overnight given Lopressor 2.5mg IV x1, Remains intubated and sedated with Fentanyl. Afebrile. Tolerating TF. 12/12 Patient spoked fever last night with T: 101.5, sedated with Fentanyl and intubated. 12/13 Patient had an episode of desaturation overnight required increase FIO2/ PEE now on ACV with RR 14, TV 550, PEEP: 12, FIO2 60% with sats 100% CT chest performed overnight showed b/l consolidation and small pleural effusion. Had T: 100.0 last night. 12/14 Tolerating PS 15/CPAP 10 FiO2 40% with rSBI 38, weaning. . Awake and alert , following commands. Hypotensive overnight and levophed restarted up to 12 mcg/ min. Nurse has been weaning throughout the day. Suspected adrenal insufficiency as he was on prednisone as outpatient for gout and has not been on stress dose steroids. Given decadron. 12/15 Transfused 1 unit PRBC for Hgb 7.0 yesterday, 1 unit PRBC for Hgb 6.6 today and now Hgb 8.3. Does not clinically have e/o active GI bleeding and wound vac output nonbloody. Stool 1500 output, C diff negative. No abdominal pain. Remains Awake and alert, remained on CPAP 10/5 last night and is now tolerating CPAP 5/5. 12/16: Extubated yesterday tolerating well. Breathing comfortably. Able to follow commands. UO 1.8 L in 24 hours. Na slightly increased to 153. 12/17: Significantly worse this AM. WBC up to 28 from 16. Hgb 5.2 from 7.9. tachycardic. pale this AM. states he feels tired. Continues on BiPAP. Plan for debridement of his arms today. LIJ CVL does not have any signs of overt infection. 12/18: Blood cell count continues to rise today to 30 from 28. Required 1 unit of blood for hemoglobin of 6.6 which improved to 7.7 this morning. However, patient remains tachycardic in the 120s and significantly pale. CT abdomen and pelvis ordered and pending. Tachypneic with respiratory rate in the 30s. Only small amount of dark tarry stool yesterday with approximately 300 cc of stool output. C. difficile toxin negative 3. After discussion with infectious disease, restart vancomycin, cefepime, Flagyl, micafungin. Rey cultures are pending. Per discussion with GI, will not scope as endoscopy is high risk given his tenuous respiratory status this point. Slightly worse hypernatremia as well as worsening acute kidney injury this morning. 12/19: POD 1 s/p ex-lap, washout for perforated ascending colon with extended right hemicolectomy, primary ileocolic anastamosis, open abdomen, septic shock, acute hypoxic and hypercarbic respiratory failure. Significantly critically ill overnight: required 6L ivf resuscitation, 1 unit prbc, norepinephrine, vasopressin, stress dose hydrocortisone. This morning, remains on high-dose vasopressors. still has large volume ivf requirement. Significant SIRS response. Vent requirements increasing with all this volume resuscitation, PEEP up to 10. He remains critically ill, and although I do believe we have surgical source control, I anticipate he will continue to clinically decline before he starts to make improvements. 12/20: Off pressors. follows commands on sedation holiday. +11L over last 3 days during acute illness, +22L since admission. We are going to have to get some of this volume back before we are able to close him given his severe anasarca. 12/21: Taken back to the OR yesterday afternoon for washout and completion colectomy. Postoperatively was significantly under resuscitated as well as had ongoing active oozing. Patient was coagulopathy. The patient was in distributive and hemorrhagic shock. The patient was given multiple units of blood products overnight. Patient was thrombocytopenic, hypofibrinogenemic, coagulopathic. Given significant volume of blood product resuscitation: 24h blood products: 13 prbc 8 ffp 2 plt 1 10-pack cryo This morning continues to have significant amount of bright red output out of his BEV and wound VAC, approximately 500 cc an hour out of his wound VAC, and approximately 75 an mils every 10 minutes out of a BEV. I discussed with surgery and we will correct his coagulopathy and plan to go back to the OR for exploration early this afternoon. 12/22: Clinically starting to improve hemodynamically. off vasopressors. Net+ 26L. CVP rising to 14. UOP adequate. Hgb 7 this AM. 12/23 Seen postop. Hypertensive, BP improved with additional pain medicine. Remains net positive but urine output excellent 3L in 24 hours. Remains on Lasix gtt. went to OR today status post wound VAC change and partial closure 12/24: Fascia was closed yesterday. Wound Vac in place. Remains sedated. -2L negative balance, but with increasing BUN/creat. Discontinue Bumex infusion, start scheduled Bumex 2 mg IV every 12 with IV albumin. 12/25: Overnight became hypotensive requiring Levophed to be restarted. Hemoglobin dropped to 4.1. Noted to have bloody drainage from G-tube and dorsal ileostomy with black stool output 12/26: s/p EGD yesterday-2 gastric ulcers bleeding, stomach a significant part had decreased discoloration indicating probable ischemia. s/p epi injection and cauterization. Continues to have coffee ground G tube output, black tarry Ileostomy output. Hemoglobin down to 6.4 getting 2 units of PRBC. GI recent recommending intervention radiology consult. 12/27: For trach today. Meds ordered. Hgb decline consistent with recent transfusions and senescent cells. 12/28: Trach clean, dry. Start SBTs. Check prealbumin. Continue TPN. 12/29: Looks in direction of voice. I have not seen more purposeful reactions. Line > 12 days old, replace today. Prealbumin 20 - good response to TPN. 12/30: Remains vented, encephalopathic, puss like drainage from left hand, WBC increased Objective Vital Signs Date Time Temp Pulse Resp B/P Pulse Ox O2 Delivery O2 Flow Rate FiO2 12/31/15 07:11 22 12/31/15 06:00 122 12/31/15 04:20 98 40 12/31/15 04:00 99.7 154/100 Intake and Output 12/30/15 12/30/15 12/31/15 08:00 16:00 00:00 Intake Total 992 ml 1576 ml 1393 ml Output Total 980 ml 2085 ml 1320 ml Balance 12 ml -509 ml 73 ml Result Diagram: 12/31/15 0450 12/31/15 0450 Other Results Laboratory Tests Test 12/30/15 15:42 Blood Gas Puncture Site CENTRAL LINE Blood Gas Patient Temperature 98.6 Venous Blood pH 7.37 (7.360-7.400) Venous Blood Partial Pressure 37 mmHg (44-48) CO2 Venous Blood Partial Pressure 41 mmHg (35-40) O2 Venous Blood HCO3 21 mmol/L (22-26) Venous Blood Oxygen Saturation 72 % (70-76) Venous Blood Oxygen Content 8.9 Vol % (9.0-17.0) Venous Blood Base Excess -3.5 mmol/L (-2-2) Oxygen Delivery Device VENTILATOR Blood Gas Ventilator Setting CPAP 15/5/50% Blood Gas Inspired Oxygen 50 % Imaging Last Impressions Chest X-Ray 12/17/15 0600 Signed Impressions: Service Date/Time: Thursday, December 17, 2015 03:25 - CONCLUSION: Persistent left lower lobe consolidation. Osmar Alegria MD Chest CT 12/14/15 0000 Signed Impressions: Service Date/Time: Monday, December 14, 2015 06:12 - CONCLUSION: 1. Cardiomegaly with bilateral consolidation, likely CHF. Pneumonia cannot be excluded. 2. Small right pleural effusion. Wojciech Lockhart MD Abdomen X-Ray 12/06/15 0000 Signed Impressions: Service Date/Time: November 09:53 - CONCLUSION: Nonspecific KUB. Air is seen within a mildly distended colon but contrast is clearly seen in the rectum. Arnaldo Reyes MD Abdomen/Pelvis CT 12/04/15 0000 Signed Impressions: Service Date/Time: Friday, December 04, 2015 16:24 - CONCLUSION: 1. Mildly distended small bowel in the mid and lower abdomen. Contrast is clearly seen extending into the distal small bowel and ascending colon so a complete obstruction is not seen. A transition point is not seen. This pattern likely represents an ileus versus a partial obstruction. 2. Multiple nonobstructing renal stones. 3. Abnormal appearance of the spleen which appears to represent a splenule. It could be correlated if the patient has had either primary splenic removal or splenic injury and this is what is either left of the spleen or a developing splenule. This is likely of no significance. 4. Mild ascites. 5. Increased density within the gallbladder representing either tumefactive sludge or noncalcified stones. 6. Mild bilateral pleural effusions with prominent areas of lower lobe atelectasis or consolidation at the bases bilaterally. 7. Subacute to chronic bilateral rib fractures and multiple compression fractures in the lower thoracic and lumbar spine as described above. The patient does have a prior CT examination from 08/26/2014. All the compression deformities described above are new when compared to that scan. Arnaldo Reyes MD Head CT 12/02/15 1013 Signed Impressions: Service Date/Time: Wednesday, December 02, 2015 11:00 - CONCLUSION: 1. No intracranial abnormality is seen. 2. Air-fluid level in the right maxillary sinus. Arnaldo Reyes MD Objective Remarks GENERAL: Middle-aged male, lying in bed, intubated. remains critically ill. HEENT: anisocoric pupils L 6mm, R 5mm, reactive. mucous membranes moist. NECK: trach in place. obese neck. difficult to assess JVD. left IJ triple lumen catheter in place, site clean, dry -> removed RESPIRATORY: Breath sounds equal bilaterally. coarse crackles b/l. Normal excursions on SBT. CARDIOVASCULAR: Tachycardic, regular rhythm without murmurs, rubs. No JVD. GASTROINTESTINAL: Abdomen fascia is closed midline wound vac in place. BEV drain in left upper quadrant with sanguinous output. bloody drainage from G-tube , MUSCULOSKELETAL: Generalized anasarca. Multiple open wounds in the lower extremity. RUE - with wound vac in place. L upper extremity dressing in place. NEURO: RASS - 3. Not following commands. Opens eye intermittently. Remains on fentanyl. 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 He has made improvements in his shock state. He is now severely volume overloaded given the large volume resuscitation he required for his shock. He also continues to have an DEIRDRE. We've made slight improvements in hemodynamics. However we are still grossly anasarca and volume overloaded. We need to start diuresing the patient with forced diuresis. This will be difficult given his ongoing acute kidney injury and the fact that I think that his renal function may be worsening and not improving. I have had numerous daily talks with his family about the fact that we may end up having to utilize renal replacement therapy. Neuro: Acute encephalopathy secondary to sepsis Acute pain secondary to multiple soft tissue infections Acute post-surgical pain Chronic pain -- Versed, fentanyl to wean as tolerated -- PRN Tylenol 1gm IV q8h for pain. Dilaudid 0.5-2mg iv q4h prn for breakthrough pain. -- ketamine drip d/cd 12/22. -- holding oral opiates. remains off home methadone given renal function 12/23/15 methadone 30mg iv x 1 as a loading dose to help with acute on chronic pain. --continue to taper off versed Respiratory Acute respiratory failure-extubated 12/16/15, reintubated for surgery 12/18 Acute hypoxic and hypercarbic respiratory failure Acute healthcare associated pneumonia- resolved NIGEL on home CPAP --Extubated 12/15, reintubated for emergent ex-lap 12/18. ACV 550/18/10/45%. --Vent bundle. Head of bed at 30 degrees. Nebs q6h and q2h prn. --Hold of spontaneous breathing trials due to acute GI bleed, hemodynamically instability CV Hemorrhagic shock Septic Shock- resolved Volume overload --Norepinephrine off - keep map > 65 mmHg. --Cortisol level was 14 on 12/14 --Stress dose steroids, hydrocortisone reduced to 50 q12 starting 12/25/15 - will continue to bal off --Echo 12/07 EF 65-70%, grade I diastolic dysfunction Renal: DEIRDRE Hypernatremia- Acute intravascular and total body volume overload --BUN/Cr s90/1.87. Holding Bumex 2 mg IV every 12 hours. Continue IV albumin. UO 1.5 l in 24 hours --Patient may need CRRT Lasix infusion discontinued 12/24/15. Bumex infusion discontinued 12/25/15 -- prerenal azotemia persists while attempting to mobilize excess edema fluid. - start free H2O via Gutt for hypernatremia FEN/GI Acute GIB, hemorrhagic shock Perforated right colon with colitis s/p ex-lap, extended right hemicolectomy with primary ileocolic anastamosis, washout, open abdomen (12/18) Acute protein calorie malnutrition- severe Hypokalemia Total body volume overload Intravascular hypervolemia -- Protonix infusion. - EGD 12/26/15 showed 2 large gastric ulcers with active bleeding status post epinephrine infusion and cauterization - will change protonix to i.v. BID -- ICU electrolyte protocol -- Daily CMP -- OR on 12/24 with Removal of VAC, washout, pancreatic drain and pelvic drain placement, gastrostomy, feeding jejunostomy and closure of abdomen with application of VAC device in the subcutaneous tissue. --TFs via jejunostomy trickle, cont TPN until better tolerated. Heme: Acute Anemia secondary to acute blood loss Thrombocytopenia Hypofibrinogenemia secondary to consumption and acute blood loss Coagulopathy secondary to consumption and acute blood loss --monitor CBC, monitor H&H every 8 hours. 2U PRBC today --Hep PLT ab negative on 12/03 --Platelets FFP fibrinogen as needed --Trend Hgb ID Severe sepsis Necrotizing Fascitis - MSSA on wound culture 12/07. Ecoli bacteremia 12/01 MSSA bacteremia 12/05. Cleared on f/u blood culture 12/07, 12/12. Leukocytosis Sepsis of Intra-abdominal origin. C. difficile toxic megacolon --Debridement 12/01 p.m at bedside by Dr Pedro and Dr. Hartmann --R hand, forearm and olecranon bursa I and D and Wound vac 12/07 Dr Chavez. --Continue IV cefepime,flagyl IV, micafungin. PO/intracolonic treatment for C.diff is contraindicated per --12/17 blood cultures: NGTD 12/17 central line culture: NGTD 12/17 urine cultures: NGTD 12/17 sputum cultures: NGTD C. difficile toxin 12/17: Negative (3rd negative toxin screen) --ID Dr. Becerra Endocrine: Hyperglycemia of Critical Illness Diabetes Presumed acute adrenal insufficiency Insulin drip algorithm 1. 20 U instulin to TPN and Moderate SSI. every 3 Accu- Cheks --continue hydrocortisone 50mg iv q12h. wean to DC Prophylaxis: GI Prophylaxis: -- Protonix IV infusion DVT Prophylaxis: -- SCDs --Receiving Lovenox 30 mg subcutaneous daily-discontinued due to acute GI bleed Lines: -- Sandoval -- left axillary arterial line 12/18. -- Left SCV CVL 12/29 Dispo: -- He remains in the [facility] and severely critically ill, ventilator weaning failure , ongoing sepsis. Critical Care: The total critical care time was 40 minutes. Time to perform other separately billable procedures was not included in the critical care time. Problem Qualifiers (1) Respiratory failure: Qualified Code: J96.00 - Acute respiratory failure, unspecified whether with hypoxia or hypercapnia (2) Altered mental status: Qualified Code: R41.0 - Delirium (3) Sepsis: Qualified Code: A41.9 - Sepsis, due to unspecified organism Chalino Mac MD Dec 31, 2015 09:21
[2015-12-31] MEDS: HYDROCORTISONE SOD SUCCINATE 100 MG VIAL IV PUSH SCH ×2 (10:00→22:17)
[2015-12-31] MEDS: PANTOPRAZOLE INJ 80 MG in SODIUM CHLORIDE 0.9% INJ 100 ML IV SCH ×2 (11:32→22:18)
[2015-12-31] MEDS: MICAFUNGIN INJ 150 MG in SODIUM CHLORIDE 0.9% INJ 100 ML IV SCH (13:17)
--- NOTE | 2015-12-31 13:59 | HHI.IDPN ---
Subjective Subjective Remarks remians on vent + low grade fever < 100 tolertes tube feedings not bleeding any more He has leukocytosis over 42K today Antibiotics cefepime IV, IV flagyl, micafungin IV Lines RIJ and other Line sites with no e/o infection Past Medical History RA HCV sp splenectomy Allergies: Coded Allergies: Compazine (Verified Allergy, Severe, VOMITING, RASH, 08/26/14) SLURRED SPEECH, MIGRAINES Demerol (Verified Allergy, Severe, VOMITING, 08/26/14) Levaquin (Verified Allergy, Severe, 08/26/14) Penicillin (Verified Allergy, Severe, Rash, 08/26/14) Phenergan (Verified Allergy, Severe, VOMITING, 08/26/14) Uncoded Allergies: ANTI-CONVULSIVES (Allergy, Severe, MIGRAINES, SLURRED SPEECH,, 01/23/14) Objective . Vital Signs Date Time Temp Pulse Resp B/P Pulse Ox O2 Delivery O2 Flow Rate FiO2 12/31/15 11:56 98 50 12/31/15 10:00 126 12/31/15 08:57 98 50 12/31/15 08:00 99.3 126 25 140/90 97 12/31/15 08:00 129 12/31/15 08:00 50 12/31/15 07:11 22 12/31/15 06:00 122 12/31/15 04:20 98 40 12/31/15 04:00 122 12/31/15 04:00 50 12/31/15 04:00 99.7 122 23 154/100 99 12/31/15 02:00 126 12/31/15 00:21 97 50 12/31/15 00:00 99.7 124 28 146/92 96 Automatic Cuff 12/31/15 00:00 50 12/31/15 00:00 124 12/30/15 22:00 128 12/30/15 21:23 98 50 12/30/15 20:00 120 12/30/15 20:00 99.3 120 28 154/98 97 12/30/15 20:00 50 12/30/15 18:40 99 50 12/30/15 18:00 120 12/30/15 16:00 98.6 118 19 152/98 97 12/30/15 16:00 118 12/30/15 16:00 50 12/30/15 15:02 93 50 12/30/15 14:00 112 12/30/15 12/30/15 12/31/15 14:59 22:59 06:59 Intake Total 1576 ml 1393 ml 1592 ml Output Total 2085 ml 1320 ml 1115 ml Balance -509 ml 73 ml 477 ml IV Total 1335 ml 814 ml 740 ml Tube Feeding 181 ml 207 ml 277 ml TPN/PPN 300 ml 307 ml Lipid 42 ml 208 ml Tube Irrigant 30 ml 60 ml Other 60 ml Output Urine Total 725 ml 625 ml 600 ml Stool Total 225 ml 175 ml 100 ml Gastric Drainage Total 250 ml 200 ml 150 ml Drainage Total 885 ml 320 ml 265 ml . Laboratory Tests Test 12/30/15 12/31/15 04:00 04:50 White Blood Count 36.1 TH/MM3 42.6 TH/MM3 Red Blood Count 2.95 MIL/MM3 3.21 MIL/MM3 Hemoglobin 8.3 GM/DL 9.4 GM/DL Hematocrit 26.2 % 29.4 % Mean Corpuscular Volume 89.0 FL 91.8 FL Mean Corpuscular Hemoglobin 28.2 PG 29.2 PG Mean Corpuscular Hemoglobin 31.7 % 31.8 % Concent Red Cell Distribution Width 17.7 % 18.8 % Platelet Count 205 TH/MM3 267 TH/MM3 Mean Platelet Volume 10.3 FL 9.8 FL Neutrophils (%) (Auto) 86.3 % 87.3 % Lymphocytes (%) (Auto) 2.7 % 2.4 % Monocytes (%) (Auto) 10.9 % 10.0 % Eosinophils (%) (Auto) 0.0 % 0.0 % Basophils (%) (Auto) 0.1 % 0.3 % Neutrophils # (Auto) 31.1 TH/MM3 37.2 TH/MM3 Lymphocytes # (Auto) 1.0 TH/MM3 1.0 TH/MM3 Monocytes # (Auto) 3.9 TH/MM3 4.3 TH/MM3 Eosinophils # (Auto) 0.0 TH/MM3 0.0 TH/MM3 Basophils # (Auto) 0.0 TH/MM3 0.1 TH/MM3 CBC Comment AUTO DIFF AUTO DIFF Differential Total Cells 100 100 Counted Neutrophils % (Manual) 81 % 84 % Band Neutrophils % 2 % 4 % Lymphocytes % 6 % 2 % Monocytes % 6 % 9 % Neutrophils # (Manual) 31.8 TH/MM3 37.9 TH/MM3 Metamyelocytes 3 % 1 % Myelocytes 2 % Nucleated Red Blood Cells 1 /100 WBC Differential Comment FINAL DIFF FINAL DIFF MANUAL MANUAL Platelet Estimate NORMAL NORMAL Platelet Morphology Comment NORMAL ENLARGED Keratocytes OCC Laboratory Tests Test 12/30/15 12/31/15 04:00 04:50 Sodium Level 154 MEQ/L 156 MEQ/L Potassium Level 3.7 MEQ/L 4.1 MEQ/L Chloride Level 122 MEQ/L 127 MEQ/L Carbon Dioxide Level 21.1 MEQ/L 19.3 MEQ/L Anion Gap 11 MEQ/L 10 MEQ/L Blood Urea Nitrogen 100 MG/DL 87 MG/DL Creatinine 1.43 MG/DL 1.40 MG/DL Estimat Glomerular Filtration 52 ML/MIN 53 ML/MIN Rate Random Glucose 143 MG/DL 244 MG/DL Calcium Level 7.8 MG/DL 8.4 MG/DL Prealbumin 20 MG/DL 29 MG/DL Microbiology Date/Time Procedure Status Source Growth 12/28/15 18:08 Aerobic Blood Culture - Preliminary Resulted Blood Peripheral NO GROWTH IN 3 DAYS 12/28/15 18:08 Anaerobic Blood Culture - Final Resulted Blood Peripheral QNS - SEE AEROBE REPORT 12/28/15 18:16 Aerobic Blood Culture - Preliminary Resulted Blood Peripheral NO GROWTH IN 3 DAYS 12/28/15 18:16 Anaerobic Blood Culture - Final Resulted Blood Peripheral QNS - SEE AEROBE REPORT Imaging Last Impressions Chest X-Ray 12/30/15 0000 Signed Impressions: Service Date/Time: Wednesday, December 30, 2015 15:31 - CONCLUSION: Place a right subclavian venous catheter terminating at the right atrial level. No pneumothorax. Otherwise stable chest.. Jared Medina MD Celiac/Hepatic Arteriogram 12/27/15 0000 Signed Impressions: Service Date/Time: December 13:41 - CONCLUSION: 1. No active GI bleed identified. Robert Mckinney MD Abdomen/Pelvis CT 12/19/15 0000 Signed Impressions: Service Date/Time: Saturday, December 19, 2015 10:57 - CONCLUSION: 1. Adjacent volume pneumoperitoneum is observed consistent with perforation of a hollow viscus. This is presumably colonic in origin due to the diffuse inflammatory process involving the colon. I do not clearly identify the source of the pneumoperitoneum however. There is mild dilatation of the small bowel likely an ileus in nature. A significant volume of ascitic fluid is noted. 2. Bibasilar atelectasis and bilateral pleural effusions. 3. Small pericardial effusion. 4. Small bilateral nonobstructing renal calculi. 5. I spoke with Dr. Sanchez concerning the findings. Osmar Chavez Jr., MD Abdomen X-Ray 12/18/15 0000 Signed Impressions: Service Date/Time: Friday, December 18, 2015 16:05 - CONCLUSION: Feeding tube tip is at the gastric antrum. Arnaldo Elias MD Chest CT 12/14/15 0000 Signed Impressions: Service Date/Time: Monday, December 14, 2015 06:12 - CONCLUSION: 1. Cardiomegaly with bilateral consolidation, likely CHF. Pneumonia cannot be excluded. 2. Small right pleural effusion. Wojciech Lockhart MD Head CT 12/02/15 1013 Signed Impressions: Service Date/Time: Wednesday, December 02, 2015 11:00 - CONCLUSION: 1. No intracranial abnormality is seen. 2. Air-fluid level in the right maxillary sinus. Arnaldo Reyes MD Physical Exam GENERAL: On vent , SKIN: + mild jaundice. Anasarca Necrotic based wounds on L forearm unstagable but probably full thickness -no e/ o infx however, not fluctuant HEENT: + mild icterus, NO nasal drainage orally intubated NECK: Trachea midline. Supple, nontender. CARDIOVASCULAR: systolic murmur in base of heart RESPIRATORY/CHEST: few rhonchi on auscultation. Breath sounds equal bilaterally. GASTROINTESTINAL: Abdomen with VAC in place serosang dc and stoma in place with dark brown soft stool GENITOURINARY: Sandoval catheter in place with clear light yellow urine scrotum is mildly edematous. Necrotic based ulcer at the base of penis shaft MUSCULOSKELETAL: Extremities no cyanosis, Edema l2-3+ NEUROLOGICAL: awake but not interactive; not making eye contact, not following commands LINES: NO evidence of infection Assessment & Plan Remarks Sepsis related to Cdiff and Intra abdominal peritonitis. - sp subtotal colectomy and ileostomy SP colon perfocation and intraperitoneal gross contamination ? Cdiff Colitis Noted Cdiff PCR is negative3/3 ? Zinc preparation in perianal care could cause false negative test. Path c/o Cdiff Colitis. - repeat path favouring ischemia RUE severe nec fasc 2/2 MSSA - skin grafting was planned, but cancelled - S/P I and D x 3 - clinically resolved MSSA bacteremia 2/2 RUE infx - resolved E.coli bacteremia on presentation -source is likely gut Immunosuppressed on steroids, s/p splenectomy. PCN allergy, but no probs with Keflex per report. ARF/ DEIRDRE/ATN 2/2 sepsis -stable Patient is critically ill. Sp upper GI bleeding - 2/2 bleeding gastric ulcer: stopped Worsening leukocytsis, leukemoid reaction ? more bowel ischemia Hypothermia, leukocytosis ? new sepsis - several risk factors including bowel perf and TPN Critically ill and unstable PLAN: Continue IV cefepime,flagyl IV, micafungin IV rechk BC - recheck UA, C+S - rechk CT A/P chk lactic acid dw Dr Bubba puente RN @ b/s Argelia Becerra MD Dec 31, 2015 13:59
[2015-12-31] MEDS: HYDROmorphone HCL PF 2 MG/ML VIAL IV PUSH PRN ×3 (14:07→20:47)
[2015-12-31] MEDS ORDERED: DIATRIZOATE MEGLUM/DIATRIZOATE SOD 9 ML CUP PO ONE (14:30)
--- NOTE | 2015-12-31 21:28 | RADRPT ---
EXAM DATE/TIME: 12/31/2015 21:09 [facility] COMPARISON: CT ABDOMEN & PELVIS W/O CONTRAST, December 04, 2015, 16:24. INDICATIONS : Evaluate for abscess. ORAL CONTRAST: Prescribed oral contrast ingested. RADIATION DOSE: 21.27 CTDIvol (mGy) MEDICAL HISTORY : Hepatitis C. Hernia, hiatal. L INGUINAL HERNIA REPAIR SURGICAL HISTORY : Splenectomy. ENCOUNTER: Initial ACUITY: 1 day PAIN SCALE: Non-responsive LOCATION: Bilateral abdomen TECHNIQUE: Volumetric scanning of the abdomen and pelvis was performed. Using automated exposure control and ad justment of the mA and/or kV according to patient size, radiation dose was kept as low as reasonably achievable to obtain optimal diagnostic quality images. FINDINGS: LOWER LUNGS: Bilateral pleural effusions and bibasilar areas of consolidation are noted. These are small. The left is larger than the right. The consolidation on the right is slightly improved relative to the prior study. LIVER: Homogeneous density without lesion. There is no dilation of the biliary tree. No calcified gallston es. SPLEEN: The spleen is surgically absent. A surgical drain is seen within the left upper quadrant. No fluid se en surrounding the drain. There is a soft tissue structure felt to relate to an enlarged splenule wit hin the left upper quadrant. This measures 5 cm. This is unchanged from the prior study. PANCREAS: Within normal limits. KIDNEYS: Small bilateral nonobstructing renal stones are again seen. These measure 1-3 mm in size. No hydronep hrosis or hydroureter. A cyst is seen involving the right lower pole. ADRENAL GLANDS: Within normal limits. VASCULAR: There is no aortic aneurysm. BOWEL/MESENTERY: A gastrostomy tube as well as a direct jejunostomy tube are noted. A catheter seen low within the pel vis likely relating to peritoneal dialysis catheter. An ileostomy is seen involving the right lower q uadrant. A small caliber rectal tube is noted. This patient has undergone near complete colectomy. No free air. Some stranding of the mesentery adjacent to loops of jejunum within the left lateral abdom en. No abscess. No obstruction. No free air. ABDOMINAL WALL: Within normal limits. RETROPERITONEUM: There is no lymphadenopathy. BLADDER: No wall thickening or mass. REPRODUCTIVE: Within normal limits. INGUINAL: There is no lymphadenopathy or hernia. MUSCULOSKELETAL: Multiple old rib fractures bilaterally. Femoral neck screws on the left. CONCLUSION: 1. There is stranding of the mesentery particularly adjacent to several loops of jejunum within the l eft abdomen. There is no abscess, obstruction, or perforation. 2. Near complete colectomy with right lower quadrant ileostomy. 3. Bilateral nonobstructing renal calculi. 4. Bilateral pleural effusions and bibasilar infiltrates. Osmar Chavez Jr., MD on December 31, 2015 at 21:21 Board Certified Radiologist. This report was verified electronically.
[2015-12-31] MEDS: [UNRECOGNIZED DRUG - OTHER] IV-CENTRAL SCH ×10 (22:17)
[2015-12-31] MEDS: SODIUM ACETATE IV-CENTRAL SCH ×10 (22:17)
[2015-12-31] MEDS: POTASSIUM CHLORIDE IV-CENTRAL SCH ×10 (22:17)
[2016-01-01] VITALS (16 sets, daily range): BP systolic 132–166; BP diastolic 82–106; PULSE 104–125; RESP 20–31; TEMP 99–99.7; O2SAT 87–100
[2016-01-01] MEDS: HYDROmorphone HCL PF 2 MG/ML VIAL IV PUSH PRN ×4 (00:48→20:13)
[2016-01-01] MEDS: fentaNYL DRIP 250 ML IV SCH ×3 (00:54→21:57)
[2016-01-01] MEDS: CHLORHEXIDINE GLUCONATE 2 % 1 PACK (2 CLOTHS) TOP SCH (01:19)
[2016-01-01] MEDS: metroNIDAZOLE 500 MG INJ 100 ML IV SCH ×3 (05:22→20:13)
[2016-01-01 05:38] LABS: HEMATOCRIT 25.2 % (39.0-51.0); MEAN CELL VOLUME 91.9 FL (80.0-100.0); MEAN CORPUSCULAR HEMOGLOBIN 29.3 PG (27.0-34.0); MEAN CORPUSCULAR HGB CONC 31.8 % (32.0-36.0); PLATELET COUNT 234 TH/MM3 (150-450); RED BLOOD COUNT 2.74 MIL/MM3 (4.50-5.90); RED CELL DISTRIBUTION WIDTH 19.7 % (11.6-17.2); WHITE BLOOD COUNT 41.2 TH/MM3 (4.0-11.0)
[2016-01-01 05:41] LABS: HEMO FLAGS AUTO DIFF
[2016-01-01] MEDS: INSULIN ASPART SUPPLEMENTAL SCALE SQ SCH ×2 (06:00→18:00)
[2016-01-01 06:03] LABS: ALKALINE PHOSPHATASE 155 U/L (45-117); ALT (GPT) 18 U/L (12-78); ANION GAP 7 MEQ/L (5-15); AST (GOT) 31 U/L (15-37); BICARBONATE 21.7 MEQ/L (21.0-32.0); BLOOD UREA NITROGEN 76 MG/DL (7-18); CHLORIDE 127 MEQ/L (98-107); GLOMERULAR FILTRATION RATE 63 ML/MIN (>89); MAGNESIUM 2.3 MG/DL (1.5-2.5); TOTAL BILIRUBIN ADULT 0.9 MG/DL (0.2-1.0)
[2016-01-01 06:06] LABS: BLOOD GAS BASE EXCESS -6.1 mmol/L (-2-2); BLOOD GAS CARBOXYHEMOGLOBIN 1.5 % (0-4); BLOOD GAS HCO3 19 mmol/L (22-26); BLOOD GAS METHEMOGLOBIN 0.8 % (0-2); BLOOD GAS O2 HGB SATURATION 97 % (90-100); BLOOD GAS OXYGEN CONTENT 10.8 Vol % (12.0-20.0); BLOOD GAS PCO2 34 mmHg (38-42); BLOOD GAS PO2 165 mmHg (61-120); BLOOD GAS TOTAL HGB 7.6 G/DL (12.0-16.0); TEMP CORR TO 98.6
[2016-01-01 06:07] LABS: CRITICAL VALUE NO; DRAW SITE ART LINE; FIO2 50 %; OXYGEN DEVICE VENTILATOR; STAT NO; VENT SETTINGS AC 20/500/5PEEP
[2016-01-01 06:20] LABS: SODIUM (NA) 156 MEQ/L (136-145)
--- NOTE | 2016-01-01 06:35 | RADRPT ---
EXAM DATE/TIME: 01/01/2016 05:18 [facility] COMPARISON: CHEST SINGLE AP, December 30, 2015, 15:31. INDICATIONS : Respiratory distress. MEDICAL HISTORY : Hypertension. Hepatitis C. Hiatal hernia. SURGICAL HISTORY : None. ENCOUNTER: Subsequent ACUITY: 1 month PAIN SCORE: Non-responsive. LOCATION: Bilateral chest FINDINGS: Tracheostomy in satisfactory position. Right central line tip in right atrium. Bilateral airspace dis ease and pleural effusion, left greater than right. Previous left central line removed. CONCLUSION: 1. Tracheostomy and right central line in satisfactory position. Stable left greater than right airsp vasile disease and pleural effusion since December 29. Nomi Falcon MD on January 01, 2016 at 6:33 Board Certified Radiologist. This report was verified electronically.
[2016-01-01] MEDS: CEFEPIME INJ 2,000 MG in SODIUM CHLORIDE 0.9% INJ 100 ML IV SCH (06:37)
[2016-01-01] MEDS: PANTOPRAZOLE INJ 80 MG in SODIUM CHLORIDE 0.9% INJ 100 ML IV SCH (06:41)
[2016-01-01] MEDS: CHLORHEXIDINE 0.12% (ORAL KIT) 15 ML CUP MT SCH ×2 (08:00→20:13)
[2016-01-01 08:10] LABS: BANDS 2 % (0-6); METAMYELOCYTES 1 % (0-1); MYELOCYTES 1 % (0-0); NEUTROPHIL # MANUAL DIFF 37.1 TH/MM3 (1.8-7.7); POLYS (SEG NEUTROPHILS) 86 % (16-70); WBC DIFF SAMPLE 100
[2016-01-01 08:11] LABS: KERATOCYTES OCC (NORMAL); PLATELET ESTIMATE SMEAR NORMAL (NORMAL); PLATELET MORPHOLOGY NORMAL (NORMAL); SCAN/DIFF FINAL DIFF MANUAL
--- NOTE | 2016-01-01 08:17 | HHI.CCPN ---
Subjective Remarks/Hospital Course 55-year-old male brought by EMS with altered mental status. He has been confused for 2 days but this morning has been the worst. He has history of chronic opiate medications including methadone and morphine that he takes for pain management and hence they gave him Narcan IV which brought the GCS up to 13. The blood glucose was 74. He has open wounds from his right upper and bilateral lower extremities. He has history of hepatitis C. Last week he was pealing and eating shrimps. Bedside blood sugar was 76 in the ER. He was tachycardic in 1 teens and was intubated in the ED for airway protection. Admitted to ICU with sepsis due to Staph Aureus hand infection and E. Coli bacteriemia. 12/05 Patient remains sedated with Fentanyl and intubated. On Levophed 3 mics, Vasopressin 0.03 mics and Bicarb drip. T:99.8 TF placed on hold OGT to LIWS last night - gastric drainage 525ml overnight. 12/06 Patient is sedated with Fentanyl and intubated, On Levophed 3 mics, off vasopressin. Gastric output 400ml in 24 hrs. KUB abdomen yesterday mildly distended colon otherwise non specific KUB. 12/07 Patient is off sedation remains intubated tolerated CPAP for most day yesterday. Afebrile. on no drips, tolerating tube feeds. 12/08 Patient went to OR yesterday for debridement and irrigation of right forearm and wound VAC placement. Given 2U PRBC and 2u PLT yesterday and currently receiving 1of 2 u additional PRBC. Hgb 7.7, PLT 43 this morning. Patient also started on pressors now on Levophed 10 mics. Vasopressin 0.04 mics. On no sedation. 12/09 Patient remains intubated off pressors, Afebrile. Tolerating tube feeds. Afebrile. 12/10 Patient is sedated with Fentanyl and intubated. Awake and follows commands off sedation. Afebrile. 12/11 Patient had ?SVT overnight given Lopressor 2.5mg IV x1, Remains intubated and sedated with Fentanyl. Afebrile. Tolerating TF. 12/12 Patient spoked fever last night with T: 101.5, sedated with Fentanyl and intubated. 12/13 Patient had an episode of desaturation overnight required increase FIO2/ PEE now on ACV with RR 14, TV 550, PEEP: 12, FIO2 60% with sats 100% CT chest performed overnight showed b/l consolidation and small pleural effusion. Had T: 100.0 last night. 12/14 Tolerating PS 15/CPAP 10 FiO2 40% with rSBI 38, weaning. . Awake and alert , following commands. Hypotensive overnight and levophed restarted up to 12 mcg/ min. Nurse has been weaning throughout the day. Suspected adrenal insufficiency as he was on prednisone as outpatient for gout and has not been on stress dose steroids. Given decadron. 12/15 Transfused 1 unit PRBC for Hgb 7.0 yesterday, 1 unit PRBC for Hgb 6.6 today and now Hgb 8.3. Does not clinically have e/o active GI bleeding and wound vac output nonbloody. Stool 1500 output, C diff negative. No abdominal pain. Remains Awake and alert, remained on CPAP 10/5 last night and is now tolerating CPAP 5/5. 12/16: Extubated yesterday tolerating well. Breathing comfortably. Able to follow commands. UO 1.8 L in 24 hours. Na slightly increased to 153. 12/17: Significantly worse this AM. WBC up to 28 from 16. Hgb 5.2 from 7.9. tachycardic. pale this AM. states he feels tired. Continues on BiPAP. Plan for debridement of his arms today. LIJ CVL does not have any signs of overt infection. 12/18: Blood cell count continues to rise today to 30 from 28. Required 1 unit of blood for hemoglobin of 6.6 which improved to 7.7 this morning. However, patient remains tachycardic in the 120s and significantly pale. CT abdomen and pelvis ordered and pending. Tachypneic with respiratory rate in the 30s. Only small amount of dark tarry stool yesterday with approximately 300 cc of stool output. C. difficile toxin negative 3. After discussion with infectious disease, restart vancomycin, cefepime, Flagyl, micafungin. Rey cultures are pending. Per discussion with GI, will not scope as endoscopy is high risk given his tenuous respiratory status this point. Slightly worse hypernatremia as well as worsening acute kidney injury this morning. 12/19: POD 1 s/p ex-lap, washout for perforated ascending colon with extended right hemicolectomy, primary ileocolic anastamosis, open abdomen, septic shock, acute hypoxic and hypercarbic respiratory failure. Significantly critically ill overnight: required 6L ivf resuscitation, 1 unit prbc, norepinephrine, vasopressin, stress dose hydrocortisone. This morning, remains on high-dose vasopressors. still has large volume ivf requirement. Significant SIRS response. Vent requirements increasing with all this volume resuscitation, PEEP up to 10. He remains critically ill, and although I do believe we have surgical source control, I anticipate he will continue to clinically decline before he starts to make improvements. 12/20: Off pressors. follows commands on sedation holiday. +11L over last 3 days during acute illness, +22L since admission. We are going to have to get some of this volume back before we are able to close him given his severe anasarca. 12/21: Taken back to the OR yesterday afternoon for washout and completion colectomy. Postoperatively was significantly under resuscitated as well as had ongoing active oozing. Patient was coagulopathy. The patient was in distributive and hemorrhagic shock. The patient was given multiple units of blood products overnight. Patient was thrombocytopenic, hypofibrinogenemic, coagulopathic. Given significant volume of blood product resuscitation: 24h blood products: 13 prbc 8 ffp 2 plt 1 10-pack cryo This morning continues to have significant amount of bright red output out of his BEV and wound VAC, approximately 500 cc an hour out of his wound VAC, and approximately 75 an mils every 10 minutes out of a BEV. I discussed with surgery and we will correct his coagulopathy and plan to go back to the OR for exploration early this afternoon. 12/22: Clinically starting to improve hemodynamically. off vasopressors. Net+ 26L. CVP rising to 14. UOP adequate. Hgb 7 this AM. 12/23 Seen postop. Hypertensive, BP improved with additional pain medicine. Remains net positive but urine output excellent 3L in 24 hours. Remains on Lasix gtt. went to OR today status post wound VAC change and partial closure 12/24: Fascia was closed yesterday. Wound Vac in place. Remains sedated. -2L negative balance, but with increasing BUN/creat. Discontinue Bumex infusion, start scheduled Bumex 2 mg IV every 12 with IV albumin. 12/25: Overnight became hypotensive requiring Levophed to be restarted. Hemoglobin dropped to 4.1. Noted to have bloody drainage from G-tube and dorsal ileostomy with black stool output 12/26: s/p EGD yesterday-2 gastric ulcers bleeding, stomach a significant part had decreased discoloration indicating probable ischemia. s/p epi injection and cauterization. Continues to have coffee ground G tube output, black tarry Ileostomy output. Hemoglobin down to 6.4 getting 2 units of PRBC. GI recent recommending intervention radiology consult. 12/27: For trach today. Meds ordered. Hgb decline consistent with recent transfusions and senescent cells. 12/28: Trach clean, dry. Start SBTs. Check prealbumin. Continue TPN. 12/29: Looks in direction of voice. I have not seen more purposeful reactions. Line > 12 days old, replace today. Prealbumin 20 - good response to TPN. 12/30: Remains vented, encephalopathic, puss like drainage from left hand, WBC increased Objective Vital Signs Date Time Temp Pulse Resp B/P Pulse Ox O2 Delivery O2 Flow Rate FiO2 01/01/16 04:08 99 50 01/01/16 04:00 99.0 104 21 132/82 Intake and Output 12/31/15 12/31/15 01/01/16 08:00 16:00 00:00 Intake Total 1592 ml 1864 ml 1665 ml Output Total 1115 ml 1710 ml 1115 ml Balance 477 ml 154 ml 550 ml Result Diagram: 01/01/16 0525 01/01/16 0525 Other Results Laboratory Tests Test 01/01/16 05:32 Blood Gas Puncture Site ART LINE Blood Gas Patient Temperature 98.6 Blood Gas HCO3 19 mmol/L (22-26) Blood Gas Base Excess -6.1 mmol/L (-2-2) Blood Gas Oxygen Saturation 97 % (90-100) Arterial Blood pH 7.35 (7.380-7.420) Arterial Blood Partial 34 mmHg (38-42) Pressure CO2 Arterial Blood Partial 165 mmHg Pressure O2 (61-120) Arterial Blood Oxygen Content 10.8 Vol % (12.0-20.0) Arterial Blood 1.5 % (0-4) Carboxyhemoglobin Arterial Blood Methemoglobin 0.8 % (0-2) Blood Gas Hemoglobin 7.6 G/DL (12.0-16.0) Oxygen Delivery Device VENTILATOR Blood Gas Ventilator Setting AC 20/500/5PEEP Blood Gas Inspired Oxygen 50 % Imaging Last Impressions Chest X-Ray 12/17/15 0600 Signed Impressions: Service Date/Time: Thursday, December 17, 2015 03:25 - CONCLUSION: Persistent left lower lobe consolidation. Osmar Alegria MD Chest CT 12/14/15 0000 Signed Impressions: Service Date/Time: Monday, December 14, 2015 06:12 - CONCLUSION: 1. Cardiomegaly with bilateral consolidation, likely CHF. Pneumonia cannot be excluded. 2. Small right pleural effusion. Wojciech Lockhart MD Abdomen X-Ray 12/06/15 0000 Signed Impressions: Service Date/Time: November 09:53 - CONCLUSION: Nonspecific KUB. Air is seen within a mildly distended colon but contrast is clearly seen in the rectum. Arnaldo Reyes MD Abdomen/Pelvis CT 12/04/15 0000 Signed Impressions: Service Date/Time: Friday, December 04, 2015 16:24 - CONCLUSION: 1. Mildly distended small bowel in the mid and lower abdomen. Contrast is clearly seen extending into the distal small bowel and ascending colon so a complete obstruction is not seen. A transition point is not seen. This pattern likely represents an ileus versus a partial obstruction. 2. Multiple nonobstructing renal stones. 3. Abnormal appearance of the spleen which appears to represent a splenule. It could be correlated if the patient has had either primary splenic removal or splenic injury and this is what is either left of the spleen or a developing splenule. This is likely of no significance. 4. Mild ascites. 5. Increased density within the gallbladder representing either tumefactive sludge or noncalcified stones. 6. Mild bilateral pleural effusions with prominent areas of lower lobe atelectasis or consolidation at the bases bilaterally. 7. Subacute to chronic bilateral rib fractures and multiple compression fractures in the lower thoracic and lumbar spine as described above. The patient does have a prior CT examination from 08/26/2014. All the compression deformities described above are new when compared to that scan. Arnaldo Reyes MD Head CT 12/02/15 1013 Signed Impressions: Service Date/Time: Wednesday, December 02, 2015 11:00 - CONCLUSION: 1. No intracranial abnormality is seen. 2. Air-fluid level in the right maxillary sinus. Arnaldo Reyes MD Objective Remarks GENERAL: Middle-aged male, lying in bed, intubated. remains critically ill. HEENT: anisocoric pupils L 6mm, R 5mm, reactive. mucous membranes moist. NECK: trach in place. obese neck. difficult to assess JVD. left IJ triple lumen catheter in place, site clean, dry -> removed RESPIRATORY: Breath sounds equal bilaterally. coarse crackles b/l. Normal excursions on SBT. CARDIOVASCULAR: Tachycardic, regular rhythm without murmurs, rubs. No JVD. GASTROINTESTINAL: Abdomen fascia is closed midline wound vac in place. BEV drain in left upper quadrant with sanguinous output. bloody drainage from G-tube , MUSCULOSKELETAL: Generalized anasarca. Multiple open wounds in the lower extremity. RUE - with wound vac in place. L upper extremity dressing in place. NEURO: RASS - 3. Not following commands. Opens eye intermittently. Remains on fentanyl. 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 He has made improvements in his shock state. He is now severely volume overloaded given the large volume resuscitation he required for his shock. He also continues to have an DEIRDRE. We've made slight improvements in hemodynamics. However we are still grossly anasarca and volume overloaded. We need to start diuresing the patient with forced diuresis. This will be difficult given his ongoing acute kidney injury and the fact that I think that his renal function may be worsening and not improving. I have had numerous daily talks with his family about the fact that we may end up having to utilize renal replacement therapy. Neuro: Acute encephalopathy secondary to sepsis Acute pain secondary to multiple soft tissue infections Acute post-surgical pain Chronic pain - Versed off, fentanyl to wean as tolerated - PRN Tylenol 1gm IV q8h for pain. Dilaudid 0.5-2mg iv q4h prn for breakthrough pain. - ketamine drip d/cd 12/22. - holding oral opiates. remains off home methadone given renal function Respiratory Acute respiratory failure-extubated 12/16/15, reintubated for surgery 12/18 Acute hypoxic and hypercarbic respiratory failure Acute healthcare associated pneumonia- resolved NIGEL on home CPAP - Extubated 12/15 - reintubated for emergent ex-lap 12/18. - Tracheostomy 12/27 - Vent bundle. Head of bed at 30 degrees. Nebs q6h and q2h prn. - Resume spontaneous breathing trials daily CV Hemorrhagic shock Septic Shock- resolved Volume overload - Norepinephrine off - keep map > 65 mmHg. - Cortisol level 14 on 12/14 - D/C Stress dose steroids - Prednisone 10mg daily - Echo 12/07 EF 65-70%, grade I diastolic dysfunction Renal: DEIRDRE Hypernatremia Acute intravascular and total body volume overload - Bumex 2 mg IV every 12 hours on hold - Patient may need CRRT - Lasix infusion discontinued 12/24/15. Bumex infusion discontinued 12/25/15 - Prerenal azotemia persists while attempting to mobilize excess edema fluid. - increase free H2O via Gutt for hypernatremia FEN/GI Acute GIB, hemorrhagic shock Perforated right colon with colitis s/p ex-lap, extended right hemicolectomy with primary ileocolic anastamosis, washout, open abdomen (12/18) Acute protein calorie malnutrition- severe Hypokalemia Total body volume overload Intravascular hypervolemia - D/C Protonix infusion - PPI i.v. BID - EGD 12/26/15 showed 2 large gastric ulcers with active bleeding status post epinephrine infusion and cauterization - ICU electrolyte protocol - Daily CMP - OR on 12/24 with Removal of VAC, washout, pancreatic drain and pelvic drain placement, gastrostomy, feeding jejunostomy and closure of abdomen with application of VAC device in the subcutaneous tissue. - TFs via jejunostomy at goal - Wean off TPN - OK by surgeon Heme: Acute Anemia secondary to acute blood loss Thrombocytopenia Hypofibrinogenemia secondary to consumption and acute blood loss Coagulopathy secondary to consumption and acute blood loss --monitor CBC, monitor H&H every 8 hours. --Hep PLT ab negative on 12/03 --Platelets FFP fibrinogen as needed --Trend Hgb - Ferrous Sulfate TID ID Severe sepsis Necrotizing Fascitis - MSSA on wound culture 12/07. Ecoli bacteremia 12/01 MSSA bacteremia 12/05. Cleared on f/u blood culture 12/07, 12/12. Leukocytosis Sepsis of Intra-abdominal origin. C. difficile toxic megacolon --Debridement 12/01 p.m at bedside by Dr Pedro and Dr. Hartmann --R hand, forearm and olecranon bursa I and D and Wound vac 12/07 Dr Chavez. --Continue IV cefepime,flagyl IV, micafungin. PO/intracolonic treatment for C.diff is contraindicated per --12/17 blood cultures: NGTD 12/17 central line culture: NGTD 12/17 urine cultures: NGTD 12/17 sputum cultures: NGTD C. difficile toxin 12/17: Negative (3rd negative toxin screen) --ID Dr. Becerra Endocrine: Hyperglycemia of Critical Illness Diabetes - off Insulin drip - Moderate SSI - Levemir BID - every 3 Accu-Cheks - D/C hydrocortisone - Prednisone p.o. Prophylaxis: GI Prophylaxis: -- Protonix IV BID DVT Prophylaxis: - SCDs - Lovenox discontinued due to acute GI bleed Lines: -- Sandoval -- left axillary arterial line 12/18. -- Left SCV CVL 12/29 Dispo: -- He remains in the [facility] and severely critically ill, ventilator weaning failure , ongoing sepsis. Critical Care: The total critical care time was 41 minutes. Time to perform other separately billable procedures was not included in the critical care time. Problem Qualifiers (1) Respiratory failure: Qualified Code: J96.00 - Acute respiratory failure, unspecified whether with hypoxia or hypercapnia (2) Altered mental status: Qualified Code: R41.0 - Delirium (3) Sepsis: Qualified Code: A41.9 - Sepsis, due to unspecified organism Chailno Mac MD Jan 01, 2016 08:17
[2016-01-01] MEDS: INSULIN DETEMIR 100 UNITS/ML VIAL SQ SCH ×2 (08:49→20:50)
[2016-01-01] MEDS: PANTOPRAZOLE SODIUM 40 MG VIAL IV PUSH SCH ×2 (08:49→21:57)
[2016-01-01] MEDS: POVIDONE IODINE 10% OINT 30 GM TUBE TOPICAL SCH (09:00)
[2016-01-01] MEDS: predniSONE 5 MG/5 ML CUP PO SCH (09:00)
[2016-01-01] MEDS: MICAFUNGIN INJ 150 MG in SODIUM CHLORIDE 0.9% INJ 100 ML IV SCH (14:00)
--- NOTE | 2016-01-01 15:51 | HHI.PR ---
Subjective Subjective Notes DAILY PROGRESS NOTE FOR SURGICAL ATTENDING, DR. NOMI MILLER On MV via trach Eyes open; moving all extremities Objective Vitals/I&O Vital Signs Date Time Temp Pulse Resp B/P Pulse Ox O2 Delivery O2 Flow Rate FiO2 01/01/16 11:21 98 50 01/01/16 04:00 99.0 104 21 132/82 Labs Laboratory Tests Test 01/01/16 01/01/16 05:25 05:32 White Blood Count 41.2 Red Blood Count 2.74 Hemoglobin 8.0 Hematocrit 25.2 Mean Corpuscular Volume 91.9 Mean Corpuscular Hemoglobin 29.3 Mean Corpuscular Hemoglobin 31.8 Concent Red Cell Distribution Width 19.7 Platelet Count 234 Mean Platelet Volume 10.1 Neutrophils (%) (Auto) Lymphocytes (%) (Auto) Monocytes (%) (Auto) Eosinophils (%) (Auto) Basophils (%) (Auto) Neutrophils # (Auto) Lymphocytes # (Auto) Monocytes # (Auto) Eosinophils # (Auto) Basophils # (Auto) CBC Comment AUTO DIFF Differential Total Cells 100 Counted Neutrophils % (Manual) 86 Band Neutrophils % 2 Lymphocytes % 2 Monocytes % 8 Neutrophils # (Manual) 37.1 Metamyelocytes 1 Myelocytes 1 Differential Comment FINAL DIFF MANUAL Platelet Estimate NORMAL Platelet Morphology Comment NORMAL Keratocytes OCC Sodium Level 156 Potassium Level 4.0 Chloride Level 127 Carbon Dioxide Level 21.7 Anion Gap 7 Blood Urea Nitrogen 76 Creatinine 1.21 Estimat Glomerular Filtration 63 Rate Random Glucose 121 Calcium Level 7.8 Phosphorus Level 2.7 Magnesium Level 2.3 Total Bilirubin 0.9 Aspartate Amino Transf 31 (AST/SGOT) Alanine Aminotransferase 18 (ALT/SGPT) Alkaline Phosphatase 155 Total Protein 4.3 Albumin 1.2 Blood Gas Puncture Site ART LINE Blood Gas Patient Temperature 98.6 Blood Gas HCO3 19 Blood Gas Base Excess -6.1 Blood Gas Oxygen Saturation 97 Arterial Blood pH 7.35 Arterial Blood Partial 34 Pressure CO2 Arterial Blood Partial 165 Pressure O2 Arterial Blood Oxygen Content 10.8 Arterial Blood 1.5 Carboxyhemoglobin Arterial Blood Methemoglobin 0.8 Blood Gas Hemoglobin 7.6 Oxygen Delivery Device VENTILATOR Blood Gas Ventilator Setting AC 20/500/5PEEP Blood Gas Inspired Oxygen 50 Date/Time Procedure Status Source Growth 12/28/15 18:16 Aerobic Blood Culture - Preliminary Resulted Blood Peripheral NO GROWTH IN 4 DAYS 12/28/15 18:16 Anaerobic Blood Culture - Final Resulted Blood Peripheral QNS - SEE AEROBE REPORT Radiology Last Impressions Chest X-Ray 12/28/15 0000 Signed Impressions: Service Date/Time: Monday, December 28, 2015 14:23 - CONCLUSION: Large left pleural effusion and left lung base consolidation. Freddy Connor MD Abdomen/Pelvis CT 12/19/15 0000 Signed Impressions: Service Date/Time: Saturday, December 19, 2015 10:57 - CONCLUSION: 1. Adjacent volume pneumoperitoneum is observed consistent with perforation of a hollow viscus. This is presumably colonic in origin due to the diffuse inflammatory process involving the colon. I do not clearly identify the source of the pneumoperitoneum however. There is mild dilatation of the small bowel likely an ileus in nature. A significant volume of ascitic fluid is noted. 2. Bibasilar atelectasis and bilateral pleural effusions. 3. Small pericardial effusion. 4. Small bilateral nonobstructing renal calculi. 5. I spoke with Dr. Sanchez concerning the findings. Osmar Chavez Jr., MD Abdomen X-Ray 12/18/15 0000 Signed Impressions: Service Date/Time: Friday, December 18, 2015 16:05 - CONCLUSION: Feeding tube tip is at the gastric antrum. Arnaldo Elias MD Chest CT 12/14/15 0000 Signed Impressions: Service Date/Time: Monday, December 14, 2015 06:12 - CONCLUSION: 1. Cardiomegaly with bilateral consolidation, likely CHF. Pneumonia cannot be excluded. 2. Small right pleural effusion. Wojciech Lockhart MD Head CT 12/02/15 1013 Signed Impressions: Service Date/Time: Wednesday, December 02, 2015 11:00 - CONCLUSION: 1. No intracranial abnormality is seen. 2. Air-fluid level in the right maxillary sinus. Arnaldo Reyes MD Cardiovascular: Regular Lungs: Clear Abdomen: Other (G/J tubes----TF through J tube; midline incision with wound vac ----good seal; ileostomy with stool ) Narrative Exam RIGHT arm with wound vac on Several abrasions with non adherent dressing in place A/P Problem List: (1) Dependent on ventilator (2) Open wound of abdomen (3) Ileostomy in place (4) Jejunostomy tube present (5) S/P total colectomy (6) Acute colitis (7) Gastrostomy tube in place Assessment and Plan 55 year old male s/p ex lap; s/p colectomy; G/J tube placement and would vac change -Advance TF as tolerated and wean TPN -Hmg stable -CT a/p noted -Plan for midline abdomen wound vac change MWF at bedside -RIGHT arm wound vac per Dr. Pedro Attending Statement DAILY PROGRESS NOTE FOR SURGICAL ATTENDING, DR. NOMI MILLER NOTE FOR SURGICAL ATTENDING, DR. NOMI MILLER I agree with above assessment and plan. The following services were provided during this hospital visit: Chart data review, vital sign assessments/reviewing monitor data Review of consultations notes if present. Medication orders/review and/or management Ordering and/or reviewing lab tests Ordering and/or interpreting/reviewing x-rays and/or diagnostic studies Care of the patient and discussion of the patient with the care team Documentation time To help prompt me to consider important information that might be impacting today's encounter and assessment, information from prior notes written by myself or my colleagues may have been "brought forward/copy and pasted" into today's note. Problem Qualifiers (1) Open wound of abdomen: Qualified Code: S31.109D - Open wound of abdomen, subsequent encounter Lurdes Felix Jan 01, 2016 15:51 Nomi Miller MD Jan 01, 2016 18:13
[2016-01-01] MEDS: RESP: ALBUTEROL 2.5 MG/IPRATROPIUM 0.5 MG NEB (PRN) NEB (19:48)
[2016-01-01] MEDS: POTASSIUM CHLORIDE IV-CENTRAL SCH ×10 (20:00)
[2016-01-01] MEDS: SODIUM ACETATE IV-CENTRAL SCH ×10 (20:00)
[2016-01-01] MEDS: [UNRECOGNIZED DRUG - OTHER] IV-CENTRAL SCH ×10 (20:00)
[2016-01-01] MEDS: VASOPRESSIN INJ 40 UNITS in DEXTROSE 5% IN WATER 100ML INJ 98 ML IV SCH ×2 (20:50)
[2016-01-02] VITALS (16 sets, daily range): BP systolic 120–161; BP diastolic 76–99; PULSE 100–118; RESP 18–25; TEMP 99.3–100; O2SAT 97–100
[2016-01-02] MEDS: CHLORHEXIDINE GLUCONATE 2 % 1 PACK (2 CLOTHS) TOP SCH (00:42)
[2016-01-02] MEDS: HYDROmorphone HCL PF 2 MG/ML VIAL IV PUSH PRN ×3 (02:18→17:52)
[2016-01-02 05:03] LABS: AUTOMATED NEUTROPHIL # 33.2 TH/MM3 (1.8-7.7); BASOPHIL # 0.1 TH/MM3 (0-0.2); BASOPHIL % 0.4 % (0.0-2.0); EOSINOPHIL % 0.1 % (0.0-4.0); HEMATOCRIT 27.4 % (39.0-51.0); LYMPH % 4.6 % (9.0-44.0); LYMPHOCYTE # 1.8 TH/MM3 (1.0-4.8); MEAN CELL VOLUME 91.8 FL (80.0-100.0); MEAN CORPUSCULAR HEMOGLOBIN 28.7 PG (27.0-34.0); MEAN CORPUSCULAR HGB CONC 31.2 % (32.0-36.0); MONO % 10.2 % (0.0-8.0); NEUT % 84.7 % (16.0-70.0); PLATELET COUNT 283 TH/MM3 (150-450); RED BLOOD COUNT 2.99 MIL/MM3 (4.50-5.90); RED CELL DISTRIBUTION WIDTH 19.7 % (11.6-17.2); WHITE BLOOD COUNT 39.2 TH/MM3 (4.0-11.0)
[2016-01-02 05:03] LABS: BLOOD GAS BASE EXCESS -7.8 mmol/L (-2-2); BLOOD GAS CARBOXYHEMOGLOBIN 1.2 % (0-4); BLOOD GAS HCO3 17 mmol/L (22-26); BLOOD GAS METHEMOGLOBIN 0.9 % (0-2); BLOOD GAS O2 HGB SATURATION 96 % (90-100); BLOOD GAS OXYGEN CONTENT 15.8 Vol % (12.0-20.0); BLOOD GAS PCO2 31 mmHg (38-42); BLOOD GAS PO2 117 mmHg (61-120); BLOOD GAS TOTAL HGB 11.5 G/DL (12.0-16.0); CRITICAL VALUE NO; FIO2 50 %; OXYGEN DEVICE VENTILATOR; TEMP CORR TO 98.6; VENT SETTINGS AC/20/500/PEEP5
[2016-01-02 05:04] LABS: DRAW SITE ART LINE; STAT NO
[2016-01-02 05:05] LABS: HEMO FLAGS AUTO DIFF
[2016-01-02] MEDS: metroNIDAZOLE 500 MG INJ 100 ML IV SCH ×3 (05:08→21:17)
[2016-01-02 05:37] LABS: ALKALINE PHOSPHATASE 192 U/L (45-117); ALT (GPT) 21 U/L (12-78); ANION GAP 7 MEQ/L (5-15); AST (GOT) 35 U/L (15-37); BLOOD UREA NITROGEN 70 MG/DL (7-18); CHLORIDE 125 MEQ/L (98-107); GLOMERULAR FILTRATION RATE 62 ML/MIN (>89); MAGNESIUM 2.3 MG/DL (1.5-2.5); POTASSIUM 3.7 MEQ/L (3.5-5.1); SODIUM (NA) 153 MEQ/L (136-145)
[2016-01-02] MEDS: INSULIN ASPART SUPPLEMENTAL SCALE SQ SCH ×4 (05:51→18:00)
[2016-01-02] MEDS: CEFEPIME INJ 2,000 MG in SODIUM CHLORIDE 0.9% INJ 100 ML IV SCH ×2 (06:20→18:21)
[2016-01-02] MEDS: ACETAMINOPHEN 1000 MG/100 ML VIAL IV PRN (06:26)
[2016-01-02] MEDS: fentaNYL DRIP 250 ML IV SCH ×2 (06:54→15:57)
[2016-01-02] MEDS: CHLORHEXIDINE 0.12% (ORAL KIT) 15 ML CUP MT SCH ×2 (08:31→21:18)
[2016-01-02] MEDS: PANTOPRAZOLE SODIUM 40 MG VIAL IV PUSH SCH ×2 (08:31→21:20)
[2016-01-02] MEDS: INSULIN DETEMIR 100 UNITS/ML VIAL SQ SCH (08:31)
[2016-01-02] MEDS: predniSONE 5 MG/5 ML CUP PO SCH (08:32)
[2016-01-02] MEDS: POVIDONE IODINE 10% OINT 30 GM TUBE TOPICAL SCH (08:33)
[2016-01-02 08:56] LABS: BANDS 4 % (0-6); CORRECTED NUCLEATED RBC 1 /100 WBC (0-0); NEUTROPHIL # MANUAL DIFF 34.9 TH/MM3 (1.8-7.7); PLATELET ESTIMATE SMEAR NORMAL (NORMAL); PLATELET MORPHOLOGY NORMAL (NORMAL); POLYS (SEG NEUTROPHILS) 85 % (16-70); SCAN/DIFF FINAL DIFF MANUAL; WBC DIFF SAMPLE 100
[2016-01-02 08:57] LABS: BURR CELLS 1+ (NORMAL)
[2016-01-02] MEDS: METOPROLOL TARTRATE 5 MG/5 ML VIAL IV PUSH SCH ×3 (11:45→21:17)
--- NOTE | 2016-01-02 11:56 | HHI.CCPN ---
Subjective Remarks/Hospital Course 55-year-old male brought by EMS with altered mental status. He has been confused for 2 days but this morning has been the worst. He has history of chronic opiate medications including methadone and morphine that he takes for pain management and hence they gave him Narcan IV which brought the GCS up to 13. The blood glucose was 74. He has open wounds from his right upper and bilateral lower extremities. He has history of hepatitis C. Last week he was pealing and eating shrimps. Bedside blood sugar was 76 in the ER. He was tachycardic in 1 teens and was intubated in the ED for airway protection. Admitted to ICU with sepsis due to Staph Aureus hand infection and E. Coli bacteriemia. 12/05 Patient remains sedated with Fentanyl and intubated. On Levophed 3 mics, Vasopressin 0.03 mics and Bicarb drip. T:99.8 TF placed on hold OGT to LIWS last night - gastric drainage 525ml overnight. 12/06 Patient is sedated with Fentanyl and intubated, On Levophed 3 mics, off vasopressin. Gastric output 400ml in 24 hrs. KUB abdomen yesterday mildly distended colon otherwise non specific KUB. 12/07 Patient is off sedation remains intubated tolerated CPAP for most day yesterday. Afebrile. on no drips, tolerating tube feeds. 12/08 Patient went to OR yesterday for debridement and irrigation of right forearm and wound VAC placement. Given 2U PRBC and 2u PLT yesterday and currently receiving 1of 2 u additional PRBC. Hgb 7.7, PLT 43 this morning. Patient also started on pressors now on Levophed 10 mics. Vasopressin 0.04 mics. On no sedation. 12/09 Patient remains intubated off pressors, Afebrile. Tolerating tube feeds. Afebrile. 12/10 Patient is sedated with Fentanyl and intubated. Awake and follows commands off sedation. Afebrile. 12/11 Patient had ?SVT overnight given Lopressor 2.5mg IV x1, Remains intubated and sedated with Fentanyl. Afebrile. Tolerating TF. 12/12 Patient spoked fever last night with T: 101.5, sedated with Fentanyl and intubated. 12/13 Patient had an episode of desaturation overnight required increase FIO2/ PEE now on ACV with RR 14, TV 550, PEEP: 12, FIO2 60% with sats 100% CT chest performed overnight showed b/l consolidation and small pleural effusion. Had T: 100.0 last night. 12/14 Tolerating PS 15/CPAP 10 FiO2 40% with rSBI 38, weaning. . Awake and alert , following commands. Hypotensive overnight and levophed restarted up to 12 mcg/ min. Nurse has been weaning throughout the day. Suspected adrenal insufficiency as he was on prednisone as outpatient for gout and has not been on stress dose steroids. Given decadron. 12/15 Transfused 1 unit PRBC for Hgb 7.0 yesterday, 1 unit PRBC for Hgb 6.6 today and now Hgb 8.3. Does not clinically have e/o active GI bleeding and wound vac output nonbloody. Stool 1500 output, C diff negative. No abdominal pain. Remains Awake and alert, remained on CPAP 10/5 last night and is now tolerating CPAP 5/5. 12/16: Extubated yesterday tolerating well. Breathing comfortably. Able to follow commands. UO 1.8 L in 24 hours. Na slightly increased to 153. 12/17: Significantly worse this AM. WBC up to 28 from 16. Hgb 5.2 from 7.9. tachycardic. pale this AM. states he feels tired. Continues on BiPAP. Plan for debridement of his arms today. LIJ CVL does not have any signs of overt infection. 12/18: Blood cell count continues to rise today to 30 from 28. Required 1 unit of blood for hemoglobin of 6.6 which improved to 7.7 this morning. However, patient remains tachycardic in the 120s and significantly pale. CT abdomen and pelvis ordered and pending. Tachypneic with respiratory rate in the 30s. Only small amount of dark tarry stool yesterday with approximately 300 cc of stool output. C. difficile toxin negative 3. After discussion with infectious disease, restart vancomycin, cefepime, Flagyl, micafungin. Rey cultures are pending. Per discussion with GI, will not scope as endoscopy is high risk given his tenuous respiratory status this point. Slightly worse hypernatremia as well as worsening acute kidney injury this morning. 12/19: POD 1 s/p ex-lap, washout for perforated ascending colon with extended right hemicolectomy, primary ileocolic anastamosis, open abdomen, septic shock, acute hypoxic and hypercarbic respiratory failure. Significantly critically ill overnight: required 6L ivf resuscitation, 1 unit prbc, norepinephrine, vasopressin, stress dose hydrocortisone. This morning, remains on high-dose vasopressors. still has large volume ivf requirement. Significant SIRS response. Vent requirements increasing with all this volume resuscitation, PEEP up to 10. He remains critically ill, and although I do believe we have surgical source control, I anticipate he will continue to clinically decline before he starts to make improvements. 12/20: Off pressors. follows commands on sedation holiday. +11L over last 3 days during acute illness, +22L since admission. We are going to have to get some of this volume back before we are able to close him given his severe anasarca. 12/21: Taken back to the OR yesterday afternoon for washout and completion colectomy. Postoperatively was significantly under resuscitated as well as had ongoing active oozing. Patient was coagulopathy. The patient was in distributive and hemorrhagic shock. The patient was given multiple units of blood products overnight. Patient was thrombocytopenic, hypofibrinogenemic, coagulopathic. Given significant volume of blood product resuscitation: 24h blood products: 13 prbc 8 ffp 2 plt 1 10-pack cryo This morning continues to have significant amount of bright red output out of his BEV and wound VAC, approximately 500 cc an hour out of his wound VAC, and approximately 75 an mils every 10 minutes out of a BEV. I discussed with surgery and we will correct his coagulopathy and plan to go back to the OR for exploration early this afternoon. 12/22: Clinically starting to improve hemodynamically. off vasopressors. Net+ 26L. CVP rising to 14. UOP adequate. Hgb 7 this AM. 12/23 Seen postop. Hypertensive, BP improved with additional pain medicine. Remains net positive but urine output excellent 3L in 24 hours. Remains on Lasix gtt. went to OR today status post wound VAC change and partial closure 12/24: Fascia was closed yesterday. Wound Vac in place. Remains sedated. -2L negative balance, but with increasing BUN/creat. Discontinue Bumex infusion, start scheduled Bumex 2 mg IV every 12 with IV albumin. 12/25: Overnight became hypotensive requiring Levophed to be restarted. Hemoglobin dropped to 4.1. Noted to have bloody drainage from G-tube and dorsal ileostomy with black stool output 12/26: s/p EGD yesterday-2 gastric ulcers bleeding, stomach a significant part had decreased discoloration indicating probable ischemia. s/p epi injection and cauterization. Continues to have coffee ground G tube output, black tarry Ileostomy output. Hemoglobin down to 6.4 getting 2 units of PRBC. GI recent recommending intervention radiology consult. 12/27: For trach today. Meds ordered. Hgb decline consistent with recent transfusions and senescent cells. 12/28: Trach clean, dry. Start SBTs. Check prealbumin. Continue TPN. 12/29: Looks in direction of voice. I have not seen more purposeful reactions. Line > 12 days old, replace today. Prealbumin 20 - good response to TPN. 12/30: Remains vented, encephalopathic, puss like drainage from left hand, WBC increased 01/01: no significant changes. continues to remain critically ill with minimal improvements over the last week. abdomen closed. still total body volume overloaded. Objective Vital Signs Date Time Temp Pulse Resp B/P Pulse Ox O2 Delivery O2 Flow Rate FiO2 01/02/16 08:09 100 40 01/02/16 04:00 99.3 112 21 122/76 Intake and Output 01/01/16 01/01/16 01/02/16 08:00 16:00 00:00 Intake Total 1853 ml 2135 ml 1576 ml Output Total 1490 ml 2255 ml 1495 ml Balance 363 ml -120 ml 81 ml Result Diagram: 01/02/16 0455 01/02/16 0455 Other Results Laboratory Tests Test 01/02/16 04:53 Blood Gas Puncture Site ART LINE Blood Gas Patient Temperature 98.6 Blood Gas HCO3 17 mmol/L (22-26) Blood Gas Base Excess -7.8 mmol/L (-2-2) Blood Gas Oxygen Saturation 96 % (90-100) Arterial Blood pH 7.35 (7.380-7.420) Arterial Blood Partial 31 mmHg (38-42) Pressure CO2 Arterial Blood Partial 117 mmHg Pressure O2 (61-120) Arterial Blood Oxygen Content 15.8 Vol % (12.0-20.0) Arterial Blood 1.2 % (0-4) Carboxyhemoglobin Arterial Blood Methemoglobin 0.9 % (0-2) Blood Gas Hemoglobin 11.5 G/DL (12.0-16.0) Oxygen Delivery Device VENTILATOR Blood Gas Ventilator Setting AC/20/500/PEEP5 Blood Gas Inspired Oxygen 50 % Imaging Last Impressions Chest X-Ray 12/17/15 0600 Signed Impressions: Service Date/Time: Thursday, December 17, 2015 03:25 - CONCLUSION: Persistent left lower lobe consolidation. Osmar Alegria MD Chest CT 12/14/15 0000 Signed Impressions: Service Date/Time: Monday, December 14, 2015 06:12 - CONCLUSION: 1. Cardiomegaly with bilateral consolidation, likely CHF. Pneumonia cannot be excluded. 2. Small right pleural effusion. Wojciech Lockhart MD Abdomen X-Ray 12/06/15 0000 Signed Impressions: Service Date/Time: November 09:53 - CONCLUSION: Nonspecific KUB. Air is seen within a mildly distended colon but contrast is clearly seen in the rectum. Arnaldo Reyes MD Abdomen/Pelvis CT 12/04/15 0000 Signed Impressions: Service Date/Time: Friday, December 04, 2015 16:24 - CONCLUSION: 1. Mildly distended small bowel in the mid and lower abdomen. Contrast is clearly seen extending into the distal small bowel and ascending colon so a complete obstruction is not seen. A transition point is not seen. This pattern likely represents an ileus versus a partial obstruction. 2. Multiple nonobstructing renal stones. 3. Abnormal appearance of the spleen which appears to represent a splenule. It could be correlated if the patient has had either primary splenic removal or splenic injury and this is what is either left of the spleen or a developing splenule. This is likely of no significance. 4. Mild ascites. 5. Increased density within the gallbladder representing either tumefactive sludge or noncalcified stones. 6. Mild bilateral pleural effusions with prominent areas of lower lobe atelectasis or consolidation at the bases bilaterally. 7. Subacute to chronic bilateral rib fractures and multiple compression fractures in the lower thoracic and lumbar spine as described above. The patient does have a prior CT examination from 08/26/2014. All the compression deformities described above are new when compared to that scan. Arnaldo Reyes MD Head CT 12/02/15 1013 Signed Impressions: Service Date/Time: Wednesday, December 02, 2015 11:00 - CONCLUSION: 1. No intracranial abnormality is seen. 2. Air-fluid level in the right maxillary sinus. Arnaldo Reyes MD Objective Remarks GENERAL: Middle-aged male, lying in bed, intubated. remains critically ill. HEENT: anisocoric pupils L 6mm, R 5mm, reactive. mucous membranes moist. NECK: trach in place. obese neck. difficult to assess JVD. right IJ triple lumen catheter in place, site clean RESPIRATORY: Breath sounds equal bilaterally. coarse crackles b/l. CARDIOVASCULAR: Tachycardic, regular rhythm without murmurs, rubs. No JVD. GASTROINTESTINAL: Abdomen fascia is closed midline wound vac in place. BEV drain in left upper quadrant with sanguinous output. bloody drainage from G-tube , MUSCULOSKELETAL: Generalized anasarca. Multiple open wounds in the lower extremity. RUE - with wound vac in place. L upper extremity dressing in place. NEURO: RASS - 3. Not following commands. Opens eye intermittently. Remains on fentanyl. 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 He has made improvements in his shock state. He is now severely volume overloaded given the large volume resuscitation he required for his shock. He also continues to have an DEIRDRE. We've made slight improvements in hemodynamics. However we are still grossly anasarca and volume overloaded. Neuro: Acute encephalopathy secondary to sepsis Acute pain secondary to multiple soft tissue infections Acute post-surgical pain Chronic pain - Versed off, fentanyl to wean as tolerated - PRN Tylenol 1gm IV q8h for pain. Dilaudid 2mg iv q4h prn for breakthrough pain. - ketamine drip d/cd 12/22. - restart oxycodone 20mg per tube q4h scheduled to help wean off fentanyl infusion. Respiratory Acute respiratory failure-extubated 12/16/15, reintubated for surgery 12/18 Acute hypoxic and hypercarbic respiratory failure Acute healthcare associated pneumonia- resolved NIGEL on home CPAP - Extubated 12/15 - reintubated for emergent ex-lap 12/18. - Tracheostomy 12/27 - Vent bundle. Head of bed at 30 degrees. Nebs q6h and q2h prn. - daily spontaneous breathing trials. slow progress. CV Hemorrhagic shock Septic Shock- resolved Volume overload - Norepinephrine off - keep map > 65 mmHg. - Cortisol level 14 on 12/14 - Prednisone 10mg daily - Echo 12/07 EF 65-70%, grade I diastolic dysfunction Renal: DEIRDRE Hypernatremia Acute intravascular and total body volume overload - Bumex 2 mg IV every 12 hours on hold - Patient may need CRRT - Lasix infusion discontinued 12/24/15. Bumex infusion discontinued 12/25/15 - Prerenal azotemia persists while attempting to mobilize excess edema fluid. - increase free H2O via Gutt for hypernatremia FEN/GI Acute GIB, hemorrhagic shock Perforated right colon with colitis s/p ex-lap, extended right hemicolectomy with primary ileocolic anastamosis, washout, open abdomen (12/18) Acute protein calorie malnutrition- severe Hypokalemia Total body volume overload Intravascular hypervolemia - PPI i.v. BID - EGD 12/26/15 showed 2 large gastric ulcers with active bleeding status post epinephrine infusion and cauterization - ICU electrolyte protocol - Daily CMP - OR on 12/24 with Removal of VAC, washout, pancreatic drain and pelvic drain placement, gastrostomy, feeding jejunostomy and closure of abdomen with application of VAC device in the subcutaneous tissue. - TFs via jejunostomy at goal - continue TPN today and plan to wean off tomorrow. (he has not had a full 24h of TF at goal, and given his poor nutrition, I want to make sure he fully tolerates TF before we remove his parenteral nutrition) Heme: Acute Anemia secondary to acute blood loss Thrombocytopenia Hypofibrinogenemia secondary to consumption and acute blood loss Coagulopathy secondary to consumption and acute blood loss --monitor CBC, qday H/H. --Hep PLT ab negative on 12/03 --Platelets FFP fibrinogen as needed --Trend Hgb - Ferrous Sulfate TID ID Severe sepsis Necrotizing Fascitis - MSSA on wound culture 12/07. Ecoli bacteremia 12/01 MSSA bacteremia 12/05. Cleared on f/u blood culture 12/07, 12/12. Leukocytosis Sepsis of Intra-abdominal origin. C. difficile toxic megacolon --Debridement 12/01 p.m at bedside by Dr Pedro and Dr. Hartmann --R hand, forearm and olecranon bursa I and D and Wound vac 12/07 Dr Chavez. --Continue IV cefepime,flagyl IV, micafungin. PO/intracolonic treatment for C.diff is contraindicated per --12/17 blood cultures: NGTD 12/17 central line culture: NGTD 12/17 urine cultures: NGTD 12/17 sputum cultures: NGTD C. difficile toxin 12/17: Negative (3rd negative toxin screen) --ID Dr. Becerra -- new lesion on penis may be skin breakdown. will have urology eval. Endocrine: Hyperglycemia of Critical Illness Diabetes - off Insulin drip - Moderate SSI - Levemir BID - Prednisone p.o. Prophylaxis: GI Prophylaxis: -- Protonix IV BID DVT Prophylaxis: - SCDs - Lovenox discontinued due to acute GI bleed Lines: -- Sandoval -- left axillary arterial line 12/18. -- left SCV CVL 12/29 Dispo: -- He remains in the [facility] and severely critically ill, ventilator weaning failure , ongoing sepsis. Critical Care: The total critical care time was 39 minutes. Time to perform other separately billable procedures was not included in the critical care time. Problem Qualifiers (1) Respiratory failure: Qualified Code: J96.00 - Acute respiratory failure, unspecified whether with hypoxia or hypercapnia (2) Altered mental status: Qualified Code: R41.0 - Delirium (3) Sepsis: Qualified Code: A41.9 - Sepsis, due to unspecified organism Jeyson Fernández MD Jan 02, 2016 11:56 Jeyson Fernández MD Jan 02, 2016 11:56
--- NOTE | 2016-01-02 13:15 | PD.PLAS.PN ---
Subjective Remarks Patient lying comfortably. Objective Vital Signs Date Time Temp Pulse Resp B/P Pulse Ox O2 Delivery O2 Flow Rate FiO2 01/02/16 08:09 100 40 01/02/16 08:09 50 01/02/16 08:00 50 01/02/16 04:00 99.3 112 21 122/76 99 01/02/16 04:00 50 01/02/16 03:36 99 50 01/02/16 00:56 98 50 01/02/16 00:00 99.7 116 22 120/80 97 01/02/16 00:00 50 01/01/16 20:00 99.7 124 24 166/106 95 01/01/16 20:00 50 01/01/16 19:51 98 50 01/01/16 18:00 125 01/01/16 16:00 99.3 112 23 132/88 98 01/01/16 16:00 122 01/01/16 16:00 50 01/01/16 15:52 98 50 01/01/16 14:00 118 I/O 01/01/16 01/01/16 01/01/16 01/02/16 01/02/16 01/02/16 07:00 15:00 23:00 07:00 15:00 23:00 Intake Total 1853 ml 2135 ml 1576 ml 1383 ml Output Total 1490 ml 2255 ml 1495 ml 1520 ml Balance 363 ml -120 ml 81 ml -137 ml IV Total 798 ml 1064 ml 695 ml 443 ml Tube Feeding 337 ml 320 ml 204 ml 340 ml TPN/PPN 318 ml 351 ml 77 ml Other 400 ml 400 ml 600 ml 600 ml Output Urine Total 600 ml 800 ml 500 ml 500 ml Stool Total 275 ml 150 ml 250 ml 150 ml Gastric Drainage Total 225 ml 800 ml 300 ml 400 ml Drainage Total 390 ml 505 ml 445 ml 470 ml Laboratory Tests Test 01/02/16 01/02/16 04:53 04:55 Blood Gas Puncture Site ART LINE Blood Gas Patient Temperature 98.6 Blood Gas HCO3 17 Blood Gas Base Excess -7.8 Blood Gas Oxygen Saturation 96 Arterial Blood pH 7.35 Arterial Blood Partial 31 Pressure CO2 Arterial Blood Partial 117 Pressure O2 Arterial Blood Oxygen Content 15.8 Arterial Blood 1.2 Carboxyhemoglobin Arterial Blood Methemoglobin 0.9 Blood Gas Hemoglobin 11.5 Oxygen Delivery Device VENTILATOR Blood Gas Ventilator Setting AC/20/500/PEEP5 Blood Gas Inspired Oxygen 50 White Blood Count 39.2 Red Blood Count 2.99 Hemoglobin 8.6 Hematocrit 27.4 Mean Corpuscular Volume 91.8 Mean Corpuscular Hemoglobin 28.7 Mean Corpuscular Hemoglobin 31.2 Concent Red Cell Distribution Width 19.7 Platelet Count 283 Mean Platelet Volume 9.7 Neutrophils (%) (Auto) 84.7 Lymphocytes (%) (Auto) 4.6 Monocytes (%) (Auto) 10.2 Eosinophils (%) (Auto) 0.1 Basophils (%) (Auto) 0.4 Neutrophils # (Auto) 33.2 Lymphocytes # (Auto) 1.8 Monocytes # (Auto) 4.0 Eosinophils # (Auto) 0.0 Basophils # (Auto) 0.1 CBC Comment AUTO DIFF Differential Total Cells 100 Counted Neutrophils % (Manual) 85 Band Neutrophils % 4 Lymphocytes % 5 Monocytes % 6 Neutrophils # (Manual) 34.9 Nucleated Red Blood Cells 1 Differential Comment FINAL DIFF MANUAL Platelet Estimate NORMAL Platelet Morphology Comment NORMAL Marilee Cells 1+ Sodium Level 153 Potassium Level 3.7 Chloride Level 125 Carbon Dioxide Level 21.0 Anion Gap 7 Blood Urea Nitrogen 70 Creatinine 1.23 Estimat Glomerular Filtration 62 Rate Random Glucose 104 Calcium Level 7.9 Phosphorus Level 2.6 Magnesium Level 2.3 Total Bilirubin 1.0 Aspartate Amino Transf 35 (AST/SGOT) Alanine Aminotransferase 21 (ALT/SGPT) Alkaline Phosphatase 192 Total Protein 4.8 Albumin 1.3 Date/Time Procedure Status Source Growth 12/28/15 18:16 Aerobic Blood Culture - Final Complete Blood Peripheral NO GROWTH IN 5 DAYS 12/28/15 18:16 Anaerobic Blood Culture - Final Complete Blood Peripheral QNS - SEE AEROBE REPORT Result Diagram: 01/02/16 0455 01/02/16 0455 Exam Findings Wound vac is in place to right upper extremity. Wound vac is not removed for exam. On exam of the left upper extremity, eschar present to the dorsal wrist/ forearm. There is maceration to the eschar. No surrounding cellulitis, no purulent drainage. Dressing is removed from the left leg. Wounds are dressed with povidone iodine and telfa. Wound beds are covered with slough. No surrounding erythema, no purulent drainage. No evidence of infection. Assessment and Plan Diagnosis: (1) Open wound of right upper extremity with complication Assessment and Plan WOCN will continue to follow patient for vac changes to right upper extremity. Continue to dress left arm and well as lower extremity and back wounds with povidone iodine ointment/telfa as ordered. Spoke to RN. The exam, history, and the medical decision-making described in the above note were completed with the assistance of the mid-level provider. I reviewed and agree with the findings presented. I attest that I had a [id number] encounter with the patient on the same day, and personally performed and documented my assessment and findings in the medical record. Barbara Pedro M.D. [place] Jan 02, 2016 13:15
[2016-01-02] MEDS: MICAFUNGIN INJ 150 MG in SODIUM CHLORIDE 0.9% INJ 100 ML IV SCH (13:23)
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
[2016-01-02] MEDS: FAT EMULSION 20% INJ 250 ML (Twice weekly over 8 hours) IV-CENTRAL SCH (20:00)
[2016-01-02] MEDS: POTASSIUM CHLORIDE IV-CENTRAL SCH ×10 (20:00)
[2016-01-02] MEDS: SODIUM ACETATE IV-CENTRAL SCH ×10 (20:00)
[2016-01-02] MEDS: [UNRECOGNIZED DRUG - OTHER] IV-CENTRAL SCH ×10 (20:00)
--- NOTE | 2016-01-02 22:39 | HHI.IDPN ---
Subjective Subjective Remarks remians on vent + low grade fever WBC slightly downward tolerates TF mote interactive Antibiotics cefepime IV, IV flagyl, micafungin IV Lines RIJ and other Line sites with no e/o infection Past Medical History RA HCV sp splenectomy Allergies: Coded Allergies: Compazine (Verified Allergy, Severe, VOMITING, RASH, 08/26/14) SLURRED SPEECH, MIGRAINES Demerol (Verified Allergy, Severe, VOMITING, 08/26/14) Levaquin (Verified Allergy, Severe, 08/26/14) Penicillin (Verified Allergy, Severe, Rash, 08/26/14) Phenergan (Verified Allergy, Severe, VOMITING, 08/26/14) Uncoded Allergies: ANTI-CONVULSIVES (Allergy, Severe, MIGRAINES, SLURRED SPEECH,, 01/23/14) Objective . Vital Signs Date Time Temp Pulse Resp B/P Pulse Ox O2 Delivery O2 Flow Rate FiO2 01/02/16 19:32 98 40 01/02/16 18:00 104 01/02/16 17:00 98 40 01/02/16 16:00 40 01/02/16 16:00 99.9 108 20 159/96 99 01/02/16 16:00 108 01/02/16 14:00 100 01/02/16 13:00 98 40 01/02/16 12:00 118 01/02/16 12:00 99.7 118 18 144/90 99 01/02/16 12:00 40 01/02/16 10:00 117 01/02/16 08:09 100 40 01/02/16 08:09 50 01/02/16 08:00 116 01/02/16 08:00 50 01/02/16 08:00 99.3 117 22 144/88 100 01/02/16 04:00 99.3 112 21 122/76 99 01/02/16 04:00 50 01/02/16 03:36 99 50 01/02/16 00:56 98 50 01/02/16 00:00 99.7 116 22 120/80 97 01/02/16 00:00 50 01/01/16 01/01/16 01/02/16 14:59 22:59 06:59 Intake Total 2135 ml 1576 ml 1383 ml Output Total 2255 ml 1495 ml 1520 ml Balance -120 ml 81 ml -137 ml IV Total 1064 ml 695 ml 443 ml Tube Feeding 320 ml 204 ml 340 ml TPN/PPN 351 ml 77 ml Other 400 ml 600 ml 600 ml Output Urine Total 800 ml 500 ml 500 ml Stool Total 150 ml 250 ml 150 ml Gastric Drainage Total 800 ml 300 ml 400 ml Drainage Total 505 ml 445 ml 470 ml . Laboratory Tests Test 01/01/16 01/02/16 05:25 04:55 White Blood Count 41.2 TH/MM3 39.2 TH/MM3 Red Blood Count 2.74 MIL/MM3 2.99 MIL/MM3 Hemoglobin 8.0 GM/DL 8.6 GM/DL Hematocrit 25.2 % 27.4 % Mean Corpuscular Volume 91.9 FL 91.8 FL Mean Corpuscular Hemoglobin 29.3 PG 28.7 PG Mean Corpuscular Hemoglobin 31.8 % 31.2 % Concent Red Cell Distribution Width 19.7 % 19.7 % Platelet Count 234 TH/MM3 283 TH/MM3 Mean Platelet Volume 10.1 FL 9.7 FL Neutrophils (%) (Auto) % 84.7 % Lymphocytes (%) (Auto) % 4.6 % Monocytes (%) (Auto) % 10.2 % Eosinophils (%) (Auto) % 0.1 % Basophils (%) (Auto) % 0.4 % Neutrophils # (Auto) TH/MM3 33.2 TH/MM3 Lymphocytes # (Auto) TH/MM3 1.8 TH/MM3 Monocytes # (Auto) TH/MM3 4.0 TH/MM3 Eosinophils # (Auto) TH/MM3 0.0 TH/MM3 Basophils # (Auto) TH/MM3 0.1 TH/MM3 CBC Comment AUTO DIFF AUTO DIFF Differential Total Cells 100 100 Counted Neutrophils % (Manual) 86 % 85 % Band Neutrophils % 2 % 4 % Lymphocytes % 2 % 5 % Monocytes % 8 % 6 % Neutrophils # (Manual) 37.1 TH/MM3 34.9 TH/MM3 Metamyelocytes 1 % Myelocytes 1 % Differential Comment FINAL DIFF FINAL DIFF MANUAL MANUAL Platelet Estimate NORMAL NORMAL Platelet Morphology Comment NORMAL NORMAL Keratocytes OCC Nucleated Red Blood Cells 1 /100 WBC Marilee Cells 1+ Laboratory Tests Test 01/01/16 01/02/16 05:25 04:55 Sodium Level 156 MEQ/L 153 MEQ/L Potassium Level 4.0 MEQ/L 3.7 MEQ/L Chloride Level 127 MEQ/L 125 MEQ/L Carbon Dioxide Level 21.7 MEQ/L 21.0 MEQ/L Anion Gap 7 MEQ/L 7 MEQ/L Blood Urea Nitrogen 76 MG/DL 70 MG/DL Creatinine 1.21 MG/DL 1.23 MG/DL Estimat Glomerular Filtration 63 ML/MIN 62 ML/MIN Rate Random Glucose 121 MG/DL 104 MG/DL Calcium Level 7.8 MG/DL 7.9 MG/DL Phosphorus Level 2.7 MG/DL 2.6 MG/DL Magnesium Level 2.3 MG/DL 2.3 MG/DL Total Bilirubin 0.9 MG/DL 1.0 MG/DL Aspartate Amino Transf 31 U/L 35 U/L (AST/SGOT) Alanine Aminotransferase 18 U/L 21 U/L (ALT/SGPT) Alkaline Phosphatase 155 U/L 192 U/L Total Protein 4.3 GM/DL 4.8 GM/DL Albumin 1.2 GM/DL 1.3 GM/DL Imaging Last Impressions Chest X-Ray 01/01/16 0600 Signed Impressions: Service Date/Time: Friday, January 01, 2016 05:18 - CONCLUSION: 1. Tracheostomy and right central line in satisfactory position. Stable left greater than right airspace disease and pleural effusion since December 29. Nomi Falcon MD Abdomen/Pelvis CT 12/31/15 0000 Signed Impressions: Service Date/Time: Thursday, December 31, 2015 21:09 - CONCLUSION: 1. There is stranding of the mesentery particularly adjacent to several loops of jejunum within the left abdomen. There is no abscess, obstruction, or perforation. 2. Near complete colectomy with right lower quadrant ileostomy. 3. Bilateral nonobstructing renal calculi. 4. Bilateral pleural effusions and bibasilar infiltrates. Osmar Chavez Jr., MD Celiac/Hepatic Arteriogram 12/27/15 0000 Signed Impressions: Service Date/Time: December 13:41 - CONCLUSION: 1. No active GI bleed identified. Robert Mckinney MD Abdomen X-Ray 12/18/15 0000 Signed Impressions: Service Date/Time: Friday, December 18, 2015 16:05 - CONCLUSION: Feeding tube tip is at the gastric antrum. Arnaldo Elias MD Chest CT 12/14/15 0000 Signed Impressions: Service Date/Time: Monday, December 14, 2015 06:12 - CONCLUSION: 1. Cardiomegaly with bilateral consolidation, likely CHF. Pneumonia cannot be excluded. 2. Small right pleural effusion. Wojciech Lockhart MD Head CT 12/02/15 1013 Signed Impressions: Service Date/Time: Wednesday, December 02, 2015 11:00 - CONCLUSION: 1. No intracranial abnormality is seen. 2. Air-fluid level in the right maxillary sinus. Arnaldo Reyes MD Physical Exam GENERAL: On vent , SKIN: + mild jaundice. Anasarca Necrotic based wounds on L forearm unstagable but probably full thickness -no e/ o infx however, not fluctuant HEENT: + mild icterus, NO nasal drainage orally intubated NECK: Trachea midline. Supple, nontender. CARDIOVASCULAR: systolic murmur in base of heart RESPIRATORY/CHEST: few rhonchi on auscultation. Breath sounds equal bilaterally. GASTROINTESTINAL: Abdomen with VAC in place serosang dc and stoma in place with dark brown soft stool GENITOURINARY: Sandoval catheter in place with clear light yellow urine scrotum is mildly edematous. Necrotic based ulcer at the base of penis shaft MUSCULOSKELETAL: Extremities no cyanosis, Edema l2-3+ NEUROLOGICAL: awake but not interactive; not making eye contact, not following commands LINES: NO evidence of infection Assessment & Plan Remarks Sepsis related to Cdiff and Intra abdominal peritonitis. - sp subtotal colectomy and ileostomy SP colon perfocation and intraperitoneal gross contamination ? Cdiff Colitis Noted Cdiff PCR is negative3/3 ? Zinc preparation in perianal care could cause false negative test. Path c/o Cdiff Colitis. - repeat path favouring ischemia RUE severe nec fasc 2/2 MSSA - skin grafting was planned, but cancelled - S/P I and D x 3 - clinically resolved MSSA bacteremia 2/2 RUE infx - resolved E.coli bacteremia on presentation -source is likely gut Immunosuppressed on steroids, s/p splenectomy. PCN allergy, but no probs with Keflex per report. ARF/ DEIRDRE/ATN 2/2 sepsis -stable Patient is critically ill. Sp upper GI bleeding - resolved Leukemoid reaction - improving PLAN: Continue IV cefepime,flagyl IV, micafungin IV fu P clx untill finel fu CBC fu clinically kwame fuentes @ b/s kwame Chavez (radiology): CT findings can be just post-op dw Dr Fernández ([facility]) Argelia Becerra MD Jan 02, 2016 22:39
[2016-01-03] VITALS (18 sets, daily range): BP systolic 125–161; BP diastolic 80–100; PULSE 82–120; RESP 20–28; TEMP 98.2–100.9; O2SAT 95–100
[2016-01-03] MEDS: METOPROLOL TARTRATE 5 MG/5 ML VIAL IV PUSH SCH ×6 (00:26→20:01)
[2016-01-03] MEDS: HYDROmorphone HCL PF 2 MG/ML VIAL IV PUSH PRN ×2 (00:27→08:18)
[2016-01-03] MEDS: ACETAMINOPHEN 1000 MG/100 ML VIAL IV PRN (01:35)
[2016-01-03] MEDS: metroNIDAZOLE 500 MG INJ 100 ML IV SCH ×3 (03:58→20:01)
[2016-01-03] MEDS: CHLORHEXIDINE GLUCONATE 2 % 1 PACK (2 CLOTHS) TOP SCH (03:59)
[2016-01-03 04:11] LABS: MEAN CELL VOLUME 92.2 FL (80.0-100.0); MEAN CORPUSCULAR HEMOGLOBIN 28.5 PG (27.0-34.0); MEAN CORPUSCULAR HGB CONC 30.9 % (32.0-36.0); PLATELET COUNT 298 TH/MM3 (150-450); RED BLOOD COUNT 3.04 MIL/MM3 (4.50-5.90); RED CELL DISTRIBUTION WIDTH 20.3 % (11.6-17.2); WHITE BLOOD COUNT 36.8 TH/MM3 (4.0-11.0)
[2016-01-03 04:14] LABS: REVIEW FLAG FINAL
[2016-01-03 04:42] LABS: POTASSIUM 3.7 MEQ/L (3.5-5.1)
[2016-01-03] MEDS: INSULIN ASPART SUPPLEMENTAL SCALE SQ SCH ×4 (06:00→17:41)
[2016-01-03] MEDS: CEFEPIME INJ 2,000 MG in SODIUM CHLORIDE 0.9% INJ 100 ML IV SCH ×2 (06:45→17:40)
[2016-01-03] MEDS: predniSONE 5 MG/5 ML CUP PO SCH (08:16)
[2016-01-03] MEDS: PANTOPRAZOLE SODIUM 40 MG VIAL IV PUSH SCH ×2 (08:16→20:01)
[2016-01-03] MEDS: CHLORHEXIDINE 0.12% (ORAL KIT) 15 ML CUP MT SCH ×2 (08:17→20:01)
[2016-01-03] MEDS: POVIDONE IODINE 10% OINT 30 GM TUBE TOPICAL SCH (08:17)
--- NOTE | 2016-01-03 11:13 | HHI.CCPN ---
Subjective Remarks/Hospital Course 55-year-old male brought by EMS with altered mental status. He has been confused for 2 days but this morning has been the worst. He has history of chronic opiate medications including methadone and morphine that he takes for pain management and hence they gave him Narcan IV which brought the GCS up to 13. The blood glucose was 74. He has open wounds from his right upper and bilateral lower extremities. He has history of hepatitis C. Last week he was pealing and eating shrimps. Bedside blood sugar was 76 in the ER. He was tachycardic in 1 teens and was intubated in the ED for airway protection. Admitted to ICU with sepsis due to Staph Aureus hand infection and E. Coli bacteriemia. 12/05 Patient remains sedated with Fentanyl and intubated. On Levophed 3 mics, Vasopressin 0.03 mics and Bicarb drip. T:99.8 TF placed on hold OGT to LIWS last night - gastric drainage 525ml overnight. 12/06 Patient is sedated with Fentanyl and intubated, On Levophed 3 mics, off vasopressin. Gastric output 400ml in 24 hrs. KUB abdomen yesterday mildly distended colon otherwise non specific KUB. 12/07 Patient is off sedation remains intubated tolerated CPAP for most day yesterday. Afebrile. on no drips, tolerating tube feeds. 12/08 Patient went to OR yesterday for debridement and irrigation of right forearm and wound VAC placement. Given 2U PRBC and 2u PLT yesterday and currently receiving 1of 2 u additional PRBC. Hgb 7.7, PLT 43 this morning. Patient also started on pressors now on Levophed 10 mics. Vasopressin 0.04 mics. On no sedation. 12/09 Patient remains intubated off pressors, Afebrile. Tolerating tube feeds. Afebrile. 12/10 Patient is sedated with Fentanyl and intubated. Awake and follows commands off sedation. Afebrile. 12/11 Patient had ?SVT overnight given Lopressor 2.5mg IV x1, Remains intubated and sedated with Fentanyl. Afebrile. Tolerating TF. 12/12 Patient spoked fever last night with T: 101.5, sedated with Fentanyl and intubated. 12/13 Patient had an episode of desaturation overnight required increase FIO2/ PEE now on ACV with RR 14, TV 550, PEEP: 12, FIO2 60% with sats 100% CT chest performed overnight showed b/l consolidation and small pleural effusion. Had T: 100.0 last night. 12/14 Tolerating PS 15/CPAP 10 FiO2 40% with rSBI 38, weaning. . Awake and alert , following commands. Hypotensive overnight and levophed restarted up to 12 mcg/ min. Nurse has been weaning throughout the day. Suspected adrenal insufficiency as he was on prednisone as outpatient for gout and has not been on stress dose steroids. Given decadron. 12/15 Transfused 1 unit PRBC for Hgb 7.0 yesterday, 1 unit PRBC for Hgb 6.6 today and now Hgb 8.3. Does not clinically have e/o active GI bleeding and wound vac output nonbloody. Stool 1500 output, C diff negative. No abdominal pain. Remains Awake and alert, remained on CPAP 10/5 last night and is now tolerating CPAP 5/5. 12/16: Extubated yesterday tolerating well. Breathing comfortably. Able to follow commands. UO 1.8 L in 24 hours. Na slightly increased to 153. 12/17: Significantly worse this AM. WBC up to 28 from 16. Hgb 5.2 from 7.9. tachycardic. pale this AM. states he feels tired. Continues on BiPAP. Plan for debridement of his arms today. LIJ CVL does not have any signs of overt infection. 12/18: Blood cell count continues to rise today to 30 from 28. Required 1 unit of blood for hemoglobin of 6.6 which improved to 7.7 this morning. However, patient remains tachycardic in the 120s and significantly pale. CT abdomen and pelvis ordered and pending. Tachypneic with respiratory rate in the 30s. Only small amount of dark tarry stool yesterday with approximately 300 cc of stool output. C. difficile toxin negative 3. After discussion with infectious disease, restart vancomycin, cefepime, Flagyl, micafungin. Rey cultures are pending. Per discussion with GI, will not scope as endoscopy is high risk given his tenuous respiratory status this point. Slightly worse hypernatremia as well as worsening acute kidney injury this morning. 12/19: POD 1 s/p ex-lap, washout for perforated ascending colon with extended right hemicolectomy, primary ileocolic anastamosis, open abdomen, septic shock, acute hypoxic and hypercarbic respiratory failure. Significantly critically ill overnight: required 6L ivf resuscitation, 1 unit prbc, norepinephrine, vasopressin, stress dose hydrocortisone. This morning, remains on high-dose vasopressors. still has large volume ivf requirement. Significant SIRS response. Vent requirements increasing with all this volume resuscitation, PEEP up to 10. He remains critically ill, and although I do believe we have surgical source control, I anticipate he will continue to clinically decline before he starts to make improvements. 12/20: Off pressors. follows commands on sedation holiday. +11L over last 3 days during acute illness, +22L since admission. We are going to have to get some of this volume back before we are able to close him given his severe anasarca. 12/21: Taken back to the OR yesterday afternoon for washout and completion colectomy. Postoperatively was significantly under resuscitated as well as had ongoing active oozing. Patient was coagulopathy. The patient was in distributive and hemorrhagic shock. The patient was given multiple units of blood products overnight. Patient was thrombocytopenic, hypofibrinogenemic, coagulopathic. Given significant volume of blood product resuscitation: 24h blood products: 13 prbc 8 ffp 2 plt 1 10-pack cryo This morning continues to have significant amount of bright red output out of his BEV and wound VAC, approximately 500 cc an hour out of his wound VAC, and approximately 75 an mils every 10 minutes out of a BEV. I discussed with surgery and we will correct his coagulopathy and plan to go back to the OR for exploration early this afternoon. 12/22: Clinically starting to improve hemodynamically. off vasopressors. Net+ 26L. CVP rising to 14. UOP adequate. Hgb 7 this AM. 12/23 Seen postop. Hypertensive, BP improved with additional pain medicine. Remains net positive but urine output excellent 3L in 24 hours. Remains on Lasix gtt. went to OR today status post wound VAC change and partial closure 12/24: Fascia was closed yesterday. Wound Vac in place. Remains sedated. -2L negative balance, but with increasing BUN/creat. Discontinue Bumex infusion, start scheduled Bumex 2 mg IV every 12 with IV albumin. 12/25: Overnight became hypotensive requiring Levophed to be restarted. Hemoglobin dropped to 4.1. Noted to have bloody drainage from G-tube and dorsal ileostomy with black stool output 12/26: s/p EGD yesterday-2 gastric ulcers bleeding, stomach a significant part had decreased discoloration indicating probable ischemia. s/p epi injection and cauterization. Continues to have coffee ground G tube output, black tarry Ileostomy output. Hemoglobin down to 6.4 getting 2 units of PRBC. GI recent recommending intervention radiology consult. 12/27: For trach today. Meds ordered. Hgb decline consistent with recent transfusions and senescent cells. 12/28: Trach clean, dry. Start SBTs. Check prealbumin. Continue TPN. 12/29: Looks in direction of voice. I have not seen more purposeful reactions. Line > 12 days old, replace today. Prealbumin 20 - good response to TPN. 12/30: Remains vented, encephalopathic, puss like drainage from left hand, WBC increased 01/01: no significant changes. continues to remain critically ill with minimal improvements over the last week. abdomen closed. still total body volume overloaded. 01/02: more awake today than yesterday. continues to be critically ill with minimal improvements overall. need to look towards placement. -900 yesterday. Objective Vital Signs Date Time Temp Pulse Resp B/P Pulse Ox O2 Delivery O2 Flow Rate FiO2 01/03/16 08:58 40 01/03/16 08:44 100 Ventilator 01/03/16 06:00 110 01/03/16 04:00 100.6 20 131/83 Intake and Output 01/02/16 01/02/16 01/02/16 07:59 15:59 23:59 Intake Total 1383 ml 1686 ml 1113 ml Output Total 1520 ml 1505 ml 1885 ml Balance -137 ml 181 ml -772 ml Result Diagram: 01/03/16 0350 01/03/16 0350 Imaging Last Impressions Chest X-Ray 12/17/15 0600 Signed Impressions: Service Date/Time: Thursday, December 17, 2015 03:25 - CONCLUSION: Persistent left lower lobe consolidation. Osmar Alegria MD Chest CT 12/14/15 0000 Signed Impressions: Service Date/Time: Monday, December 14, 2015 06:12 - CONCLUSION: 1. Cardiomegaly with bilateral consolidation, likely CHF. Pneumonia cannot be excluded. 2. Small right pleural effusion. Wojciech Lockhart MD Abdomen X-Ray 12/06/15 0000 Signed Impressions: Service Date/Time: November 09:53 - CONCLUSION: Nonspecific KUB. Air is seen within a mildly distended colon but contrast is clearly seen in the rectum. Arnaldo Reyes MD Abdomen/Pelvis CT 12/04/15 0000 Signed Impressions: Service Date/Time: Friday, December 04, 2015 16:24 - CONCLUSION: 1. Mildly distended small bowel in the mid and lower abdomen. Contrast is clearly seen extending into the distal small bowel and ascending colon so a complete obstruction is not seen. A transition point is not seen. This pattern likely represents an ileus versus a partial obstruction. 2. Multiple nonobstructing renal stones. 3. Abnormal appearance of the spleen which appears to represent a splenule. It could be correlated if the patient has had either primary splenic removal or splenic injury and this is what is either left of the spleen or a developing splenule. This is likely of no significance. 4. Mild ascites. 5. Increased density within the gallbladder representing either tumefactive sludge or noncalcified stones. 6. Mild bilateral pleural effusions with prominent areas of lower lobe atelectasis or consolidation at the bases bilaterally. 7. Subacute to chronic bilateral rib fractures and multiple compression fractures in the lower thoracic and lumbar spine as described above. The patient does have a prior CT examination from 08/26/2014. All the compression deformities described above are new when compared to that scan. Arnaldo Reyes MD Head CT 12/02/15 1013 Signed Impressions: Service Date/Time: Wednesday, December 02, 2015 11:00 - CONCLUSION: 1. No intracranial abnormality is seen. 2. Air-fluid level in the right maxillary sinus. Arnaldo Reyes MD Objective Remarks GENERAL: Middle-aged male, lying in bed, trached. remains critically ill. HEENT: anisocoric pupils L 6mm, R 5mm, reactive. mucous membranes moist. NECK: trach in place. obese neck. difficult to assess JVD. right IJ triple lumen catheter in place, site clean RESPIRATORY: Breath sounds equal bilaterally. coarse crackles b/l. CARDIOVASCULAR: Tachycardic, regular rhythm without murmurs, rubs. No JVD. GASTROINTESTINAL: Abdomen fascia is closed midline wound vac in place. BEV drain in left upper quadrant with sanguinous output. bloody drainage from G-tube , MUSCULOSKELETAL: Generalized anasarca. Multiple open wounds in the lower extremity. RUE - with wound vac in place. L upper extremity dressing in place. NEURO: RASS - 3. Not following commands. Opens eye intermittently. Remains on fentanyl. 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 He has made improvements in his shock state. He is now severely volume overloaded given the large volume resuscitation he required for his shock. He also continues to have an DEIRDRE. We've made slight improvements in hemodynamics. However we are still grossly anasarca and volume overloaded. Neuro: Acute encephalopathy secondary to sepsis Acute pain secondary to multiple soft tissue infections Acute post-surgical pain Chronic pain - Versed off, fentanyl to wean as tolerated - start fentanyl patch 75mcg/h q3d for long acting pain control. - d/c iv tylenol. - schedule liquid tylenol 650mg per tube q6h. - Dilaudid 2mg iv q4h prn for breakthrough pain. - ketamine drip d/cd 12/22. - oxycodone 20mg per tube q4h scheduled to help wean off fentanyl infusion. Respiratory Acute respiratory failure-extubated 12/16/15, reintubated for surgery 12/18 Acute hypoxic and hypercarbic respiratory failure Acute healthcare associated pneumonia- resolved NIGEL on home CPAP - Extubated 12/15 - reintubated for emergent ex-lap 12/18. - Tracheostomy 12/27 - Vent bundle. Head of bed at 30 degrees. Nebs q6h and q2h prn. - daily spontaneous breathing trials. slow progress. today 15/5/40%. will attempt to wean to 10/5/40%. CV Hemorrhagic shock- resolved Septic Shock- resolved Volume overload - keep map > 65 mmHg. - Cortisol level 14 on 12/14 - Prednisone 10mg daily, will begin slow taper. - Echo 12/07 EF 65-70%, grade I diastolic dysfunction Renal: DEIRDRE Hypernatremia Acute intravascular and total body volume overload - give single dose of bumex and concentrated albumin x 1 today. goal -500 to 1L negative. - Prerenal azotemia persists while attempting to mobilize excess edema fluid. - increase free H2O via Gutt to 400 q4h. FEN/GI Acute GIB, hemorrhagic shock Perforated right colon with colitis s/p ex-lap, extended right hemicolectomy with primary ileocolic anastamosis, washout, open abdomen (12/18) Acute protein calorie malnutrition- severe Hypokalemia Total body volume overload Intravascular hypervolemia - PPI i.v. BID - EGD 12/26/15 showed 2 large gastric ulcers with active bleeding status post epinephrine infusion and cauterization - ICU electrolyte protocol - Daily CMP - OR on 12/24 with Removal of VAC, washout, pancreatic drain and pelvic drain placement, gastrostomy, feeding jejunostomy and closure of abdomen with application of VAC device in the subcutaneous tissue. - TFs via jejunostomy at goal - off TPN 01/01. - on full TF at goal. Heme: Acute Anemia secondary to acute blood loss Thrombocytopenia Hypofibrinogenemia secondary to consumption and acute blood loss Coagulopathy secondary to consumption and acute blood loss --monitor CBC, qday H/H. --Hep PLT ab negative on 12/03 --Platelets FFP fibrinogen as needed --Trend Hgb - Ferrous Sulfate TID - does not meet transfusion triggers at this time. ID Severe sepsis Necrotizing Fascitis - MSSA on wound culture 12/07. Ecoli bacteremia 12/01 MSSA bacteremia 12/05. Cleared on f/u blood culture 12/07, 12/12. Leukocytosis Sepsis of Intra-abdominal origin. C. difficile toxic megacolon --Debridement 12/01 p.m at bedside by Dr Pedro and Dr. Hartmann --R hand, forearm and olecranon bursa I and D and Wound vac 12/07 Dr Chavez. --Continue IV cefepime,flagyl IV, micafungin. PO/intracolonic treatment for C.diff is contraindicated per --12/17 blood cultures: NGTD 12/17 central line culture: NGTD 12/17 urine cultures: NGTD 12/17 sputum cultures: NGTD C. difficile toxin 12/17: Negative (3rd negative toxin screen) --ID Dr. Becerra -- new lesion on penis may be skin breakdown. will have urology eval. Endocrine: Hyperglycemia of Critical Illness Diabetes - off Insulin drip - Moderate SSI - Levemir BID on hold. - Prednisone 10mg po daily. will start slow taper: 7.5mg daily x 7 days, then 5mg daily x 7 days, then off. Prophylaxis: GI Prophylaxis: -- Protonix IV BID DVT Prophylaxis: - SCDs - Lovenox discontinued due to acute GI bleed. will talk with Dr. Miller about possible restarting DVT prophylaxis. Lines: -- Sandoval -- left axillary arterial line 12/18- we will attempt to obtain NIBP values and if they correlate, we will remove art line. given 4 extremities with significant wounds, may not be able to get accurate NIBP readings. -- right SCV CVL 12/29 Dispo: -- He remains in the ISC and severely critically ill, ventilator weaning failure , ongoing sepsis. Critical Care: The total critical care time was 41 minutes. Time to perform other separately billable procedures was not included in the critical care time. Problem Qualifiers (1) Respiratory failure: Qualified Code: J96.00 - Acute respiratory failure, unspecified whether with hypoxia or hypercapnia (2) Altered mental status: Qualified Code: R41.0 - Delirium (3) Sepsis: Qualified Code: A41.9 - Sepsis, due to unspecified organism Jeyson Fernández MD Jan 03, 2016 11:13
[2016-01-03] MEDS ORDERED: BUMETANIDE INJ 1 MG/4 ML VIAL IV PUSH ONE ×2 (11:30)
[2016-01-03] MEDS ORDERED: ALBUMIN HUMAN 25% 25 GM/100 ML BAGP IV ONE (11:30)
[2016-01-03] MEDS: FREE WATER G-TUBE SCH ×3 (12:00→20:01)
--- NOTE | 2016-01-03 12:55 | HHI.PR ---
Subjective Remarks Extubated Lying quietly in bed and does not appear to be in any distress Nonverbal Objective Vital Signs Vital Signs Date Time Temp Pulse Resp B/P Pulse Ox O2 Delivery O2 Flow Rate FiO2 01/03/16 11:58 95 40 01/03/16 08:58 40 01/03/16 08:44 100 Ventilator 40 01/03/16 08:44 100 40 01/03/16 06:00 110 01/03/16 04:01 98 40 01/03/16 04:00 100.6 97 20 131/83 98 01/03/16 04:00 40 01/03/16 04:00 97 01/03/16 02:00 110 01/03/16 01:08 100 40 01/03/16 00:00 40 01/03/16 00:00 103 01/03/16 00:00 100.9 103 24 152/96 96 01/02/16 22:00 105 01/02/16 20:00 40 01/02/16 20:00 116 01/02/16 20:00 100.0 109 25 161/99 98 01/02/16 19:32 98 40 01/02/16 18:00 104 01/02/16 17:00 98 40 01/02/16 16:00 40 01/02/16 16:00 99.9 108 20 159/96 99 01/02/16 16:00 108 01/02/16 14:00 100 01/02/16 13:00 98 40 I/O 01/02/16 01/02/16 01/02/16 01/03/16 01/03/16 01/03/16 06:59 14:59 22:59 06:59 14:59 22:59 Intake Total 1383 ml 1686 ml 1113 ml 844 ml Output Total 1520 ml 1505 ml 1885 ml 1245 ml Balance -137 ml 181 ml -772 ml -401 ml IV Total 443 ml 655 ml 557 ml 289 ml Tube Feeding 340 ml 431 ml 256 ml 255 ml Other 600 ml 600 ml 300 ml 300 ml Output Urine Total 500 ml 675 ml 900 ml 375 ml Stool Total 150 ml 275 ml 125 ml 160 ml Gastric Drainage Total 400 ml 325 ml 300 ml 400 ml Drainage Total 470 ml 230 ml 560 ml 310 ml Result Diagram: 01/03/16 0350 01/03/16 0350 Objective Remarks Small area skin breakdown to penile shaft related to recent marked edema of the genitalia. The degree of edema involving the genitalia has considerably diminished. Assessment and Plan Assessment and Plan Urologic impression: #1 improved edema involving the genitalia #2 small area of skin breakdown involving penile shaft related to recent edema Recommendation: Neosporin ointment applied twice a day to affected area of penis until resolved Solomon Olivares MD Jan 03, 2016 12:55
[2016-01-03] MEDS: fentaNYL DRIP 250 ML IV SCH (13:04)
[2016-01-03] MEDS: MICAFUNGIN INJ 150 MG in SODIUM CHLORIDE 0.9% INJ 100 ML IV SCH (13:05)
[2016-01-03] MEDS: ACETAMINOPHEN 650 MG/20.3 ML UDC PO SCH ×2 (13:18→17:40)
[2016-01-03] MEDS: fentaNYL 75 MCG/HR PATCH TD SCH (13:18)
[2016-01-03] MEDS: oxyCODONE HCL ORAL CONC 20 MG/ML SYRINGE PO SCH ×3 (13:18→20:02)
--- NOTE | 2016-01-03 16:46 | HHI.PR ---
Subjective Subjective Notes DAILY PROGRESS NOTE FOR SURGICAL ATTENDING, DR. NOMI MILLER Getting ready to get to stretcher chair Nods yes and no to questions Objective Vitals/I&O Vital Signs Date Time Temp Pulse Resp B/P Pulse Ox O2 Delivery O2 Flow Rate FiO2 01/03/16 16:16 100 40 01/03/16 14:00 85 01/03/16 12:00 100.0 22 128/85 01/03/16 08:44 Ventilator Labs Laboratory Tests Test 01/03/16 03:50 White Blood Count 36.8 Red Blood Count 3.04 Hemoglobin 8.7 Hematocrit 28.0 Mean Corpuscular Volume 92.2 Mean Corpuscular Hemoglobin 28.5 Mean Corpuscular Hemoglobin 30.9 Concent Red Cell Distribution Width 20.3 Platelet Count 298 Mean Platelet Volume 10.0 Sodium Level 154 Potassium Level 3.7 Chloride Level 126 Carbon Dioxide Level 20.0 Anion Gap 8 Blood Urea Nitrogen 66 Creatinine 1.27 Estimat Glomerular Filtration 59 Rate Random Glucose 143 Calcium Level 8.0 Radiology Last Impressions Chest X-Ray 12/28/15 0000 Signed Impressions: Service Date/Time: Monday, December 28, 2015 14:23 - CONCLUSION: Large left pleural effusion and left lung base consolidation. Freddy Connor MD Abdomen/Pelvis CT 12/19/15 0000 Signed Impressions: Service Date/Time: Saturday, December 19, 2015 10:57 - CONCLUSION: 1. Adjacent volume pneumoperitoneum is observed consistent with perforation of a hollow viscus. This is presumably colonic in origin due to the diffuse inflammatory process involving the colon. I do not clearly identify the source of the pneumoperitoneum however. There is mild dilatation of the small bowel likely an ileus in nature. A significant volume of ascitic fluid is noted. 2. Bibasilar atelectasis and bilateral pleural effusions. 3. Small pericardial effusion. 4. Small bilateral nonobstructing renal calculi. 5. I spoke with Dr. Sanchez concerning the findings. Osmar Chavez Jr., MD Abdomen X-Ray 12/18/15 0000 Signed Impressions: Service Date/Time: Friday, December 18, 2015 16:05 - CONCLUSION: Feeding tube tip is at the gastric antrum. Arnaldo Elias MD Chest CT 12/14/15 0000 Signed Impressions: Service Date/Time: Monday, December 14, 2015 06:12 - CONCLUSION: 1. Cardiomegaly with bilateral consolidation, likely CHF. Pneumonia cannot be excluded. 2. Small right pleural effusion. Wojciech Lockhart MD Head CT 12/02/15 1013 Signed Impressions: Service Date/Time: Wednesday, December 02, 2015 11:00 - CONCLUSION: 1. No intracranial abnormality is seen. 2. Air-fluid level in the right maxillary sinus. Arnaldo Reyes MD Cardiovascular: Regular Lungs: Clear Abdomen: Other (wound vac in midline incision; BEV with serous drainage; J tube with TF ) Narrative Exam RIGHT arm with wound vac on Several abrasions with non adherent dressing in place A/P Problem List: (1) Dependent on ventilator (2) Open wound of abdomen (3) Ileostomy in place (4) Jejunostomy tube present (5) S/P total colectomy (6) Acute colitis (7) Gastrostomy tube in place Assessment and Plan 55 year old male s/p ex lap; s/p colectomy; G/J tube placement and would vac change -Tolerating TF -Off TPN -Hmg stable -Cntinue midline abdomen wound vac change MWF at bedside -RIGHT arm wound vac per Dr. Pedro NOTE FOR SURGICAL ATTENDING, DR. NOMI MLILER I agree with above assessment and plan. The exam, history, and the medical decision-making described in the above note were completed with the assistance of the mid-level provider. I reviewed and agree with the findings presented. The following services were provided during this hospital visit: Chart data review, vital sign assessments/reviewing monitor data Review of consultations notes if present. Medication orders/review and/or management Ordering and/or reviewing lab tests Ordering and/or interpreting/reviewing x-rays and/or diagnostic studies Care of the patient and discussion of the patient with the care team Documentation time To help prompt me to consider important information that might be impacting today's encounter and assessment, information from prior notes written by myself or my colleagues may have been "brought forward/copy and pasted" into today's note. Problem Qualifiers (1) Open wound of abdomen: Qualified Code: S31.109D - Open wound of abdomen, subsequent encounter Lurdes Felix Jan 03, 2016 16:46 Nomi Miller MD Jan 04, 2016 08:42
[2016-01-03] MEDS: NEOMYCIN/POLYMYXIN/BACITRACIN OINT 15 GM TUBE TOPICAL SCH (20:02)
--- NOTE | 2016-01-03 20:28 | HHI.IDPN ---
Subjective Subjective Remarks Delasyed entry - pt was seen earleir today remians on vent + low grade fever, up nto 100.9 WBC slightly downward tolerates TF mote interactive Antibiotics cefepime IV, IV flagyl, micafungin IV Lines RIJ and other Line sites with no e/o infection Past Medical History RA HCV sp splenectomy Allergies: Coded Allergies: Compazine (Verified Allergy, Severe, VOMITING, RASH, 08/26/14) SLURRED SPEECH, MIGRAINES Demerol (Verified Allergy, Severe, VOMITING, 08/26/14) Levaquin (Verified Allergy, Severe, 08/26/14) Penicillin (Verified Allergy, Severe, Rash, 08/26/14) Phenergan (Verified Allergy, Severe, VOMITING, 08/26/14) Uncoded Allergies: ANTI-CONVULSIVES (Allergy, Severe, MIGRAINES, SLURRED SPEECH,, 01/23/14) Objective . Vital Signs Date Time Temp Pulse Resp B/P Pulse Ox O2 Delivery O2 Flow Rate FiO2 01/03/16 18:00 94 01/03/16 16:16 100 40 01/03/16 16:00 40 01/03/16 16:00 100 01/03/16 16:00 99.0 100 26 125/80 100 01/03/16 14:00 85 01/03/16 12:00 100.0 110 22 128/85 95 01/03/16 12:00 110 01/03/16 12:00 40 01/03/16 11:58 95 40 01/03/16 10:00 100 01/03/16 08:58 40 01/03/16 08:44 100 Ventilator 40 01/03/16 08:44 100 40 01/03/16 08:00 50 01/03/16 08:00 120 01/03/16 08:00 99.7 120 23 161/100 100 01/03/16 06:00 110 01/03/16 04:01 98 40 01/03/16 04:00 100.6 97 20 131/83 98 01/03/16 04:00 40 01/03/16 04:00 97 01/03/16 02:00 110 01/03/16 01:08 100 40 01/03/16 00:00 40 01/03/16 00:00 103 01/03/16 00:00 100.9 103 24 152/96 96 01/02/16 22:00 105 01/02/16 01/02/16 01/03/16 15:00 23:00 07:00 Intake Total 1686 ml 1113 ml 844 ml Output Total 1505 ml 1885 ml 1245 ml Balance 181 ml -772 ml -401 ml IV Total 655 ml 557 ml 289 ml Tube Feeding 431 ml 256 ml 255 ml Other 600 ml 300 ml 300 ml Output Urine Total 675 ml 900 ml 375 ml Stool Total 275 ml 125 ml 160 ml Gastric Drainage Total 325 ml 300 ml 400 ml Drainage Total 230 ml 560 ml 310 ml . Laboratory Tests Test 01/02/16 01/03/16 04:55 03:50 White Blood Count 39.2 TH/MM3 36.8 TH/MM3 Red Blood Count 2.99 MIL/MM3 3.04 MIL/MM3 Hemoglobin 8.6 GM/DL 8.7 GM/DL Hematocrit 27.4 % 28.0 % Mean Corpuscular Volume 91.8 FL 92.2 FL Mean Corpuscular Hemoglobin 28.7 PG 28.5 PG Mean Corpuscular Hemoglobin 31.2 % 30.9 % Concent Red Cell Distribution Width 19.7 % 20.3 % Platelet Count 283 TH/MM3 298 TH/MM3 Mean Platelet Volume 9.7 FL 10.0 FL Neutrophils (%) (Auto) 84.7 % Lymphocytes (%) (Auto) 4.6 % Monocytes (%) (Auto) 10.2 % Eosinophils (%) (Auto) 0.1 % Basophils (%) (Auto) 0.4 % Neutrophils # (Auto) 33.2 TH/MM3 Lymphocytes # (Auto) 1.8 TH/MM3 Monocytes # (Auto) 4.0 TH/MM3 Eosinophils # (Auto) 0.0 TH/MM3 Basophils # (Auto) 0.1 TH/MM3 CBC Comment AUTO DIFF Differential Total Cells 100 Counted Neutrophils % (Manual) 85 % Band Neutrophils % 4 % Lymphocytes % 5 % Monocytes % 6 % Neutrophils # (Manual) 34.9 TH/MM3 Nucleated Red Blood Cells 1 /100 WBC Differential Comment FINAL DIFF MANUAL Platelet Estimate NORMAL Platelet Morphology Comment NORMAL [place] Cells 1+ Laboratory Tests Test 01/02/16 01/03/16 04:55 03:50 Sodium Level 153 MEQ/L 154 MEQ/L Potassium Level 3.7 MEQ/L 3.7 MEQ/L Chloride Level 125 MEQ/L 126 MEQ/L Carbon Dioxide Level 21.0 MEQ/L 20.0 MEQ/L Anion Gap 7 MEQ/L 8 MEQ/L Blood Urea Nitrogen 70 MG/DL 66 MG/DL Creatinine 1.23 MG/DL 1.27 MG/DL Estimat Glomerular Filtration 62 ML/MIN 59 ML/MIN Rate Random Glucose 104 MG/DL 143 MG/DL Calcium Level 7.9 MG/DL 8.0 MG/DL Phosphorus Level 2.6 MG/DL Magnesium Level 2.3 MG/DL Total Bilirubin 1.0 MG/DL Aspartate Amino Transf 35 U/L (AST/SGOT) Alanine Aminotransferase 21 U/L (ALT/SGPT) Alkaline Phosphatase 192 U/L Total Protein 4.8 GM/DL Albumin 1.3 GM/DL Imaging Last Impressions Chest X-Ray 01/01/16 0600 Signed Impressions: Service Date/Time: Friday, January 01, 2016 05:18 - CONCLUSION: 1. Tracheostomy and right central line in satisfactory position. Stable left greater than right airspace disease and pleural effusion since December 29. Nomi Falcon MD Abdomen/Pelvis CT 12/31/15 0000 Signed Impressions: Service Date/Time: Thursday, December 31, 2015 21:09 - CONCLUSION: 1. There is stranding of the mesentery particularly adjacent to several loops of jejunum within the left abdomen. There is no abscess, obstruction, or perforation. 2. Near complete colectomy with right lower quadrant ileostomy. 3. Bilateral nonobstructing renal calculi. 4. Bilateral pleural effusions and bibasilar infiltrates. Osmar Chavez Jr., MD Celiac/Hepatic Arteriogram 12/27/15 0000 Signed Impressions: Service Date/Time: December 13:41 - CONCLUSION: 1. No active GI bleed identified. Robert Mckinney MD Abdomen X-Ray 12/18/15 0000 Signed Impressions: Service Date/Time: Friday, December 18, 2015 16:05 - CONCLUSION: Feeding tube tip is at the gastric antrum. Arnaldo Elias MD Chest CT 12/14/15 0000 Signed Impressions: Service Date/Time: Monday, December 14, 2015 06:12 - CONCLUSION: 1. Cardiomegaly with bilateral consolidation, likely CHF. Pneumonia cannot be excluded. 2. Small right pleural effusion. Wojciech Lockhart MD Head CT 12/02/15 1013 Signed Impressions: Service Date/Time: Wednesday, December 02, 2015 11:00 - CONCLUSION: 1. No intracranial abnormality is seen. 2. Air-fluid level in the right maxillary sinus. Arnaldo Reyes MD Physical Exam GENERAL: On vent , SKIN: + minimal jaundice. Anasarca Necrotic based wounds on L forearm unstagable but probably full thickness -no e/ o infx however, not fluctuant HEENT: + mild icterus, NO nasal drainage orally intubated NECK: Trachea midline. Supple, nontender. CARDIOVASCULAR: systolic murmur in base of heart RESPIRATORY/CHEST: scattered rhonchi on auscultation. Breath sounds equal bilaterally. GASTROINTESTINAL: Abdomen with VAC in place serosang dc and stoma in place with dark brown soft stool BEV in place with purulent drainage GENITOURINARY: Sandoval catheter in place with clear light yellow urine scrotum is mildly edematous. Necrotic based ulcer at the base of penis shaft and glans MUSCULOSKELETAL: Extremities no cyanosis, Edema l2-3+ soft puitting with poorly healing wounds NEUROLOGICAL: awake but -interactive; making eye contact, following commands; communicating LINES: NO evidence of infection Assessment & Plan Remarks Sepsis related to Cdiff and Intra abdominal peritonitis. - sp subtotal colectomy and ileostomy SP colon perfocation and intraperitoneal gross contamination ? Cdiff Colitis Noted Cdiff PCR is negative3/3 ? Zinc preparation in perianal care could cause false negative test. Path c/o Cdiff Colitis. - repeat path favouring ischemia RUE severe nec fasc 2/2 MSSA - skin grafting was planned, but cancelled - S/P I and D x 3 - clinically resolved MSSA bacteremia 2/2 RUE infx - resolved E.coli bacteremia on presentation -source is likely gut Immunosuppressed on steroids, s/p splenectomy. PCN allergy, but no probs with Keflex per report. ARF/ DEIRDRE/ATN 2/2 sepsis -stable Patient is stable and clinically improving Sp upper GI bleeding - resolved Leukemoid reaction and fever - improving PLAN: Continue IV cefepime,flagyl IV, micafungin IV anticipate to cont abx wjhile fever, leukocuytosis persist fu CBC fu clinically will repeat CT A/P if worse clinically and/or new fevers and worsening WBC dw Dr Fernández ([facility]) Argelia Becerra MD Jan 03, 2016 20:28
[2016-01-04] VITALS (18 sets, daily range): BP systolic 108–138; BP diastolic 7–94; PULSE 84–99; RESP 10–30; TEMP 98.6–99.3; O2SAT 97–100
[2016-01-04] MEDS: FREE WATER G-TUBE SCH ×7 (00:27→23:54)
[2016-01-04] MEDS: METOPROLOL TARTRATE 5 MG/5 ML VIAL IV PUSH SCH ×7 (00:27→23:54)
[2016-01-04] MEDS: ACETAMINOPHEN 650 MG/20.3 ML UDC PO SCH ×5 (00:27→23:53)
[2016-01-04] MEDS: oxyCODONE HCL ORAL CONC 20 MG/ML SYRINGE PO SCH ×6 (00:28→21:23)
[2016-01-04] MEDS: CHLORHEXIDINE GLUCONATE 2 % 1 PACK (2 CLOTHS) TOP SCH (03:08)
[2016-01-04] MEDS: metroNIDAZOLE 500 MG INJ 100 ML IV SCH ×3 (04:17→21:21)
[2016-01-04] MEDS: HYDROmorphone HCL PF 2 MG/ML VIAL IV PUSH PRN ×3 (04:19→17:58)
[2016-01-04] MEDS: fentaNYL DRIP 250 ML IV SCH ×2 (04:19→17:57)
[2016-01-04 05:40] LABS: HEMATOCRIT 24.9 % (39.0-51.0); MEAN CELL VOLUME 92.9 FL (80.0-100.0); MEAN CORPUSCULAR HEMOGLOBIN 29.4 PG (27.0-34.0); MEAN CORPUSCULAR HGB CONC 31.6 % (32.0-36.0); PLATELET COUNT 277 TH/MM3 (150-450); RED BLOOD COUNT 2.68 MIL/MM3 (4.50-5.90); RED CELL DISTRIBUTION WIDTH 19.6 % (11.6-17.2); WHITE BLOOD COUNT 30.7 TH/MM3 (4.0-11.0)
[2016-01-04 05:46] LABS: REVIEW FLAG FINAL
[2016-01-04] MEDS: CEFEPIME INJ 2,000 MG in SODIUM CHLORIDE 0.9% INJ 100 ML IV SCH ×2 (05:47→17:53)
[2016-01-04] MEDS: INSULIN ASPART SUPPLEMENTAL SCALE SQ SCH ×5 (06:00→23:54)
[2016-01-04 06:12] LABS: BICARBONATE 20.1 MEQ/L (21.0-32.0); POTASSIUM 3.5 MEQ/L (3.5-5.1)
[2016-01-04] MEDS: CHLORHEXIDINE 0.12% (ORAL KIT) 15 ML CUP MT SCH ×2 (08:00→21:21)
[2016-01-04] MEDS: predniSONE 5 MG/5 ML CUP PO SCH (08:49)
[2016-01-04] MEDS: PANTOPRAZOLE SODIUM 40 MG VIAL IV PUSH SCH ×2 (08:49→21:22)
[2016-01-04] MEDS: POVIDONE IODINE 10% OINT 30 GM TUBE TOPICAL SCH (08:51)
[2016-01-04] MEDS: NEOMYCIN/POLYMYXIN/BACITRACIN OINT 15 GM TUBE TOPICAL SCH ×2 (08:51→21:23)
--- NOTE | 2016-01-04 13:54 | RADRPT ---
EXAM DATE/TIME: 01/04/2016 12:33 [place] COMPARISON: CHEST SINGLE AP, January 01, 2016, 5:18. INDICATIONS: Respiratory Failure MEDICAL HISTORY: Hypertension. Hepatitis C. Hiatal hernia. Sleep apnea. SURGICAL HISTORY: Tonsillectomy. Back surgery ENCOUNTER: Subsequent ACUITY: 1 week PAIN SCORE: 0/10 LOCATION: Bilateral chest FINDINGS: Trach tube, central venous catheter is in good position. Right lung is clear. Persistent consolidat ion and pleural effusion is present on the left. CONCLUSION: Stable chest, consolidation and small pleural effusion on the left. Raudel Mckinney MD FACR on January 04, 2016 at 13:46 Board Certified Radiologist. This report was verified electronically.
[2016-01-04] MEDS: MICAFUNGIN INJ 150 MG in SODIUM CHLORIDE 0.9% INJ 100 ML IV SCH (14:01)
--- NOTE | 2016-01-04 19:26 | HHI.CCPN ---
Subjective Remarks/Hospital Course 55-year-old male brought by EMS with altered mental status. He has been confused for 2 days but this morning has been the worst. He has history of chronic opiate medications including methadone and morphine that he takes for pain management and hence they gave him Narcan IV which brought the GCS up to 13. The blood glucose was 74. He has open wounds from his right upper and bilateral lower extremities. He has history of hepatitis C. Last week he was pealing and eating shrimps. Bedside blood sugar was 76 in the ER. He was tachycardic in 1 teens and was intubated in the ED for airway protection. Admitted to ICU with sepsis due to Staph Aureus hand infection and E. Coli bacteriemia. 12/05 Patient remains sedated with Fentanyl and intubated. On Levophed 3 mics, Vasopressin 0.03 mics and Bicarb drip. T:99.8 TF placed on hold OGT to LIWS last night - gastric drainage 525ml overnight. 12/06 Patient is sedated with Fentanyl and intubated, On Levophed 3 mics, off vasopressin. Gastric output 400ml in 24 hrs. KUB abdomen yesterday mildly distended colon otherwise non specific KUB. 12/07 Patient is off sedation remains intubated tolerated CPAP for most day yesterday. Afebrile. on no drips, tolerating tube feeds. 12/08 Patient went to OR yesterday for debridement and irrigation of right forearm and wound VAC placement. Given 2U PRBC and 2u PLT yesterday and currently receiving 1of 2 u additional PRBC. Hgb 7.7, PLT 43 this morning. Patient also started on pressors now on Levophed 10 mics. Vasopressin 0.04 mics. On no sedation. 12/09 Patient remains intubated off pressors, Afebrile. Tolerating tube feeds. Afebrile. 12/10 Patient is sedated with Fentanyl and intubated. Awake and follows commands off sedation. Afebrile. 12/11 Patient had ?SVT overnight given Lopressor 2.5mg IV x1, Remains intubated and sedated with Fentanyl. Afebrile. Tolerating TF. 12/12 Patient spoked fever last night with T: 101.5, sedated with Fentanyl and intubated. 12/13 Patient had an episode of desaturation overnight required increase FIO2/ PEE now on ACV with RR 14, TV 550, PEEP: 12, FIO2 60% with sats 100% CT chest performed overnight showed b/l consolidation and small pleural effusion. Had T: 100.0 last night. 12/14 Tolerating PS 15/CPAP 10 FiO2 40% with rSBI 38, weaning. . Awake and alert , following commands. Hypotensive overnight and levophed restarted up to 12 mcg/ min. Nurse has been weaning throughout the day. Suspected adrenal insufficiency as he was on prednisone as outpatient for gout and has not been on stress dose steroids. Given decadron. 12/15 Transfused 1 unit PRBC for Hgb 7.0 yesterday, 1 unit PRBC for Hgb 6.6 today and now Hgb 8.3. Does not clinically have e/o active GI bleeding and wound vac output nonbloody. Stool 1500 output, C diff negative. No abdominal pain. Remains Awake and alert, remained on CPAP 10/5 last night and is now tolerating CPAP 5/5. 12/16: Extubated yesterday tolerating well. Breathing comfortably. Able to follow commands. UO 1.8 L in 24 hours. Na slightly increased to 153. 12/17: Significantly worse this AM. WBC up to 28 from 16. Hgb 5.2 from 7.9. tachycardic. pale this AM. states he feels tired. Continues on BiPAP. Plan for debridement of his arms today. LIJ CVL does not have any signs of overt infection. 12/18: Blood cell count continues to rise today to 30 from 28. Required 1 unit of blood for hemoglobin of 6.6 which improved to 7.7 this morning. However, patient remains tachycardic in the 120s and significantly pale. CT abdomen and pelvis ordered and pending. Tachypneic with respiratory rate in the 30s. Only small amount of dark tarry stool yesterday with approximately 300 cc of stool output. C. difficile toxin negative 3. After discussion with infectious disease, restart vancomycin, cefepime, Flagyl, micafungin. Rey cultures are pending. Per discussion with GI, will not scope as endoscopy is high risk given his tenuous respiratory status this point. Slightly worse hypernatremia as well as worsening acute kidney injury this morning. 12/19: POD 1 s/p ex-lap, washout for perforated ascending colon with extended right hemicolectomy, primary ileocolic anastamosis, open abdomen, septic shock, acute hypoxic and hypercarbic respiratory failure. Significantly critically ill overnight: required 6L ivf resuscitation, 1 unit prbc, norepinephrine, vasopressin, stress dose hydrocortisone. This morning, remains on high-dose vasopressors. still has large volume ivf requirement. Significant SIRS response. Vent requirements increasing with all this volume resuscitation, PEEP up to 10. He remains critically ill, and although I do believe we have surgical source control, I anticipate he will continue to clinically decline before he starts to make improvements. 12/20: Off pressors. follows commands on sedation holiday. +11L over last 3 days during acute illness, +22L since admission. We are going to have to get some of this volume back before we are able to close him given his severe anasarca. 12/21: Taken back to the OR yesterday afternoon for washout and completion colectomy. Postoperatively was significantly under resuscitated as well as had ongoing active oozing. Patient was coagulopathy. The patient was in distributive and hemorrhagic shock. The patient was given multiple units of blood products overnight. Patient was thrombocytopenic, hypofibrinogenemic, coagulopathic. Given significant volume of blood product resuscitation: 24h blood products: 13 prbc 8 ffp 2 plt 1 10-pack cryo This morning continues to have significant amount of bright red output out of his BEV and wound VAC, approximately 500 cc an hour out of his wound VAC, and approximately 75 an mils every 10 minutes out of a BEV. I discussed with surgery and we will correct his coagulopathy and plan to go back to the OR for exploration early this afternoon. 12/22: Clinically starting to improve hemodynamically. off vasopressors. Net+ 26L. CVP rising to 14. UOP adequate. Hgb 7 this AM. 12/23 Seen postop. Hypertensive, BP improved with additional pain medicine. Remains net positive but urine output excellent 3L in 24 hours. Remains on Lasix gtt. went to OR today status post wound VAC change and partial closure 12/24: Fascia was closed yesterday. Wound Vac in place. Remains sedated. -2L negative balance, but with increasing BUN/creat. Discontinue Bumex infusion, start scheduled Bumex 2 mg IV every 12 with IV albumin. 12/25: Overnight became hypotensive requiring Levophed to be restarted. Hemoglobin dropped to 4.1. Noted to have bloody drainage from G-tube and dorsal ileostomy with black stool output 12/26: s/p EGD yesterday-2 gastric ulcers bleeding, stomach a significant part had decreased discoloration indicating probable ischemia. s/p epi injection and cauterization. Continues to have coffee ground G tube output, black tarry Ileostomy output. Hemoglobin down to 6.4 getting 2 units of PRBC. GI recent recommending intervention radiology consult. 12/27: For trach today. Meds ordered. Hgb decline consistent with recent transfusions and senescent cells. 12/28: Trach clean, dry. Start SBTs. Check prealbumin. Continue TPN. 12/29: Looks in direction of voice. I have not seen more purposeful reactions. Line > 12 days old, replace today. Prealbumin 20 - good response to TPN. 12/30: Remains vented, encephalopathic, puss like drainage from left hand, WBC increased 01/01: no significant changes. continues to remain critically ill with minimal improvements over the last week. abdomen closed. still total body volume overloaded. 01/02: more awake today than yesterday. continues to be critically ill with minimal improvements overall. need to look towards placement. -900 yesterday. 01/03: up in chair yesterday. tolerated short run of SBT 15/5/40%. net euvolemic. wbc downtrending. Objective Vital Signs Date Time Temp Pulse Resp B/P Pulse Ox O2 Delivery O2 Flow Rate FiO2 01/04/16 16:33 100 35 01/04/16 16:00 98.6 98 20 135/90 01/03/16 08:44 Ventilator Intake and Output 01/03/16 01/03/16 01/04/16 08:00 16:00 00:00 Intake Total 844 ml 1690 ml 1688 ml Output Total 1245 ml 1755 ml 2740 ml Balance -401 ml -65 ml -1052 ml Result Diagram: 01/04/16 0505 01/04/16 0505 Imaging Last Impressions Chest X-Ray 12/17/15 0600 Signed Impressions: Service Date/Time: Thursday, December 17, 2015 03:25 - CONCLUSION: Persistent left lower lobe consolidation. Osmar Alegria MD Chest CT 12/14/15 0000 Signed Impressions: Service Date/Time: Monday, December 14, 2015 06:12 - CONCLUSION: 1. Cardiomegaly with bilateral consolidation, likely CHF. Pneumonia cannot be excluded. 2. Small right pleural effusion. Wojciech Lockhart MD Abdomen X-Ray 12/06/15 0000 Signed Impressions: Service Date/Time: November 09:53 - CONCLUSION: Nonspecific KUB. Air is seen within a mildly distended colon but contrast is clearly seen in the rectum. Arnaldo Reyes MD Abdomen/Pelvis CT 12/04/15 0000 Signed Impressions: Service Date/Time: Friday, December 04, 2015 16:24 - CONCLUSION: 1. Mildly distended small bowel in the mid and lower abdomen. Contrast is clearly seen extending into the distal small bowel and ascending colon so a complete obstruction is not seen. A transition point is not seen. This pattern likely represents an ileus versus a partial obstruction. 2. Multiple nonobstructing renal stones. 3. Abnormal appearance of the spleen which appears to represent a splenule. It could be correlated if the patient has had either primary splenic removal or splenic injury and this is what is either left of the spleen or a developing splenule. This is likely of no significance. 4. Mild ascites. 5. Increased density within the gallbladder representing either tumefactive sludge or noncalcified stones. 6. Mild bilateral pleural effusions with prominent areas of lower lobe atelectasis or consolidation at the bases bilaterally. 7. Subacute to chronic bilateral rib fractures and multiple compression fractures in the lower thoracic and lumbar spine as described above. The patient does have a prior CT examination from 08/26/2014. All the compression deformities described above are new when compared to that scan. Arnaldo Reyes MD Head CT 12/02/15 1013 Signed Impressions: Service Date/Time: Wednesday, December 02, 2015 11:00 - CONCLUSION: 1. No intracranial abnormality is seen. 2. Air-fluid level in the right maxillary sinus. Arnaldo Reyes MD Objective Remarks GENERAL: Middle-aged male, lying in bed, trached. remains critically ill. HEENT: anisocoric pupils L 6mm, R 5mm, reactive. mucous membranes moist. NECK: trach in place. obese neck. difficult to assess JVD. right IJ triple lumen catheter in place, site clean RESPIRATORY: Breath sounds equal bilaterally. coarse crackles b/l. CARDIOVASCULAR: Tachycardic, regular rhythm without murmurs, rubs. No JVD. GASTROINTESTINAL: Abdomen fascia is closed midline wound vac in place. BEV drain in left upper quadrant with sanguinous output. bloody drainage from G-tube , MUSCULOSKELETAL: Generalized anasarca. Multiple open wounds in the lower extremity. RUE - with wound vac in place. L upper extremity dressing in place. NEURO: RASS - 2. intermittently following commands. Remains on fentanyl. 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 He has made improvements in his shock state. He is now severely volume overloaded given the large volume resuscitation he required for his shock. He also continues to have an DEIRDRE. We've made slight improvements in hemodynamics. However we are still grossly anasarca and volume overloaded. Neuro: Acute encephalopathy secondary to sepsis Acute pain secondary to multiple soft tissue infections Acute post-surgical pain Chronic pain - Versed off, fentanyl to wean as tolerated - fentanyl patch 75mcg/h q3d for long acting pain control. - liquid tylenol 650mg per tube q6h. - Dilaudid 2mg iv q4h prn for breakthrough pain. - ketamine drip d/cd 12/22. - oxycodone 20mg per tube q4h scheduled to help wean off fentanyl infusion. Respiratory Acute respiratory failure-extubated 12/16/15, reintubated for surgery 12/18 Acute hypoxic and hypercarbic respiratory failure Acute healthcare associated pneumonia- resolved NIGEL on home CPAP - Extubated 12/15 - reintubated for emergent ex-lap 12/18. - Tracheostomy 12/27 - Vent bundle. Head of bed at 30 degrees. Nebs q6h and q2h prn. - daily spontaneous breathing trials. slow progress. today 15//40%. CV Hemorrhagic shock- resolved Septic Shock- resolved Volume overload - keep map > 65 mmHg. - Cortisol level 14 on 12/14 - Prednisone 10mg daily, will begin slow taper. - Echo 12/07 EF 65-70%, grade I diastolic dysfunction Renal: DEIRDRE Hypernatremia Acute intravascular and total body volume overload - cr slightly uptrended with dose of bumex/albumin yesterday. will hold on further diuresis. - Prerenal azotemia persists while attempting to mobilize excess edema fluid. - free H2O via Gutt to 400 q4h. FEN/GI Acute GIB, hemorrhagic shock Perforated right colon with colitis s/p ex-lap, extended right hemicolectomy with primary ileocolic anastamosis, washout, open abdomen (12/18) Acute protein calorie malnutrition- severe Hypokalemia Total body volume overload Intravascular hypervolemia - PPI i.v. BID - EGD 12/26/15 showed 2 large gastric ulcers with active bleeding status post epinephrine infusion and cauterization - ICU electrolyte protocol - Daily CMP - OR on 12/24 with Removal of VAC, washout, pancreatic drain and pelvic drain placement, gastrostomy, feeding jejunostomy and closure of abdomen with application of VAC device in the subcutaneous tissue. - TFs via jejunostomy at goal - off TPN 01/01. - on full TF at goal. Heme: Acute Anemia secondary to acute blood loss Thrombocytopenia Hypofibrinogenemia secondary to consumption and acute blood loss Coagulopathy secondary to consumption and acute blood loss --monitor CBC, qday H/H. --Hep PLT ab negative on 12/03 --Platelets FFP fibrinogen as needed --Trend Hgb - Ferrous Sulfate TID - does not meet transfusion triggers at this time. ID Severe sepsis Necrotizing Fascitis - MSSA on wound culture 12/07. Ecoli bacteremia 12/01 MSSA bacteremia 12/05. Cleared on f/u blood culture 12/07, 12/12. Leukocytosis Sepsis of Intra-abdominal origin. C. difficile toxic megacolon --Debridement 12/01 p.m at bedside by Dr Pedro and Dr. Hartmann --R hand, forearm and olecranon bursa I and D and Wound vac 12/07 Dr Chavez. --Continue IV cefepime,flagyl IV, micafungin. PO/intracolonic treatment for C.diff is contraindicated per --12/17 blood cultures: NGTD 12/17 central line culture: NGTD 12/17 urine cultures: NGTD 12/17 sputum cultures: NGTD C. difficile toxin 12/17: Negative (3rd negative toxin screen) --ID Dr. Becerra Endocrine: Hyperglycemia of Critical Illness Diabetes - off Insulin drip - Moderate SSI - Levemir BID on hold. - Prednisone 10mg po daily. slow taper: 7.5mg daily x 7 days, then 5mg daily x 7 days, then off. Prophylaxis: GI Prophylaxis: -- Protonix IV BID DVT Prophylaxis: - SCDs - Lovenox discontinued due to acute GI bleed. will talk with Dr. Miller about possible restarting DVT prophylaxis. Lines: -- Sandoval -- left axillary arterial line 12/18- NIBP readings inaccurate given 4 extremity wounds. will keep art line as our only way of addressing blood pressure measurements. -- right SCV CVL 12/29 Dispo: -- He remains in the [facility] and severely critically ill, ventilator weaning failure , ongoing sepsis. Critical Care: The total critical care time was30 minutes. Time to perform other separately billable procedures was not included in the critical care time. Problem Qualifiers (1) Respiratory failure: Qualified Code: J96.00 - Acute respiratory failure, unspecified whether with hypoxia or hypercapnia (2) Altered mental status: Qualified Code: R41.0 - Delirium (3) Sepsis: Qualified Code: A41.9 - Sepsis, due to unspecified organism Jeyson Fernández MD Jan 04, 2016 19:26 Qualified Code: A41.9 - Sepsis, due to unspecified organism Jeyson Fernández MD Jan 04, 2016 19:26
--- NOTE | 2016-01-04 22:59 | HHI.IDPN ---
Subjective Subjective Remarks Delayed entry - pt was seen earleir today in am remians on vent no fever, WBC decrased to 30K tolerates TF Antibiotics cefepime IV, IV flagyl, micafungin IV Lines RIJ and other Line sites with no e/o infection Past Medical History RA HCV sp splenectomy Allergies: Coded Allergies: Compazine (Verified Allergy, Severe, VOMITING, RASH, 08/26/14) SLURRED SPEECH, MIGRAINES Demerol (Verified Allergy, Severe, VOMITING, 08/26/14) Levaquin (Verified Allergy, Severe, 08/26/14) Penicillin (Verified Allergy, Severe, Rash, 08/26/14) Phenergan (Verified Allergy, Severe, VOMITING, 08/26/14) Uncoded Allergies: ANTI-CONVULSIVES (Allergy, Severe, MIGRAINES, SLURRED SPEECH,, 01/23/14) Objective . Vital Signs Date Time Temp Pulse Resp B/P Pulse Ox O2 Delivery O2 Flow Rate FiO2 01/04/16 21:59 100 35 01/04/16 20:18 98 35 01/04/16 18:00 96 01/04/16 16:33 100 35 01/04/16 16:00 35 01/04/16 16:00 98.6 98 20 135/90 99 01/04/16 16:00 98 01/04/16 14:00 87 01/04/16 12:07 100 35 01/04/16 12:00 99.0 86 17 134/78 100 01/04/16 12:00 35 01/04/16 12:00 86 01/04/16 10:00 84 01/04/16 09:06 35 01/04/16 09:06 97 35 01/04/16 08:00 35 01/04/16 08:00 99.3 98 30 138/82 98 01/04/16 08:00 94 01/04/16 06:00 87 01/04/16 04:00 40 01/04/16 04:00 99.3 94 22 108/94 100 01/04/16 04:00 100 35 01/04/16 04:00 94 01/04/16 02:00 85 01/04/16 01:00 100 35 01/04/16 00:50 35 01/04/16 00:00 99 01/04/16 00:00 40 01/04/16 00:00 98.6 99 28 122/7 100 01/03/16 01/03/16 01/04/16 15:00 23:00 07:00 Intake Total 1690 ml 1688 ml 1290 ml Output Total 1755 ml 2740 ml 1180 ml Balance -65 ml -1052 ml 110 ml IV Total 436 ml 444 ml 109 ml Tube Feeding 454 ml 444 ml 381 ml Albumin 100 ml Other 700 ml 800 ml 800 ml Output Urine Total 800 ml 1525 ml 525 ml Stool Total 225 ml 350 ml 375 ml Gastric Drainage Total 525 ml 550 ml 200 ml Drainage Total 205 ml 315 ml 80 ml . Laboratory Tests Test 01/03/16 01/04/16 03:50 05:05 White Blood Count 36.8 TH/MM3 30.7 TH/MM3 Red Blood Count 3.04 MIL/MM3 2.68 MIL/MM3 Hemoglobin 8.7 GM/DL 7.9 GM/DL Hematocrit 28.0 % 24.9 % Mean Corpuscular Volume 92.2 FL 92.9 FL Mean Corpuscular Hemoglobin 28.5 PG 29.4 PG Mean Corpuscular Hemoglobin 30.9 % 31.6 % Concent Red Cell Distribution Width 20.3 % 19.6 % Platelet Count 298 TH/MM3 277 TH/MM3 Mean Platelet Volume 10.0 FL 10.1 FL Laboratory Tests Test 01/03/16 01/04/16 03:50 05:05 Sodium Level 154 MEQ/L 153 MEQ/L Potassium Level 3.7 MEQ/L 3.5 MEQ/L Chloride Level 126 MEQ/L 125 MEQ/L Carbon Dioxide Level 20.0 MEQ/L 20.1 MEQ/L Anion Gap 8 MEQ/L 8 MEQ/L Blood Urea Nitrogen 66 MG/DL 60 MG/DL Creatinine 1.27 MG/DL 1.36 MG/DL Estimat Glomerular Filtration 59 ML/MIN 55 ML/MIN Rate Random Glucose 143 MG/DL 138 MG/DL Calcium Level 8.0 MG/DL 7.9 MG/DL Imaging Last Impressions Chest X-Ray 01/04/16 1200 Signed Impressions: Service Date/Time: Monday, January 04, 2016 12:33 - CONCLUSION: Stable chest , consolidation and small pleural effusion on the left. Raudel Mckinney MD FACR Abdomen/Pelvis CT 12/31/15 0000 Signed Impressions: Service Date/Time: Thursday, December 31, 2015 21:09 - CONCLUSION: 1. There is stranding of the mesentery particularly adjacent to several loops of jejunum within the left abdomen. There is no abscess, obstruction, or perforation. 2. Near complete colectomy with right lower quadrant ileostomy. 3. Bilateral nonobstructing renal calculi. 4. Bilateral pleural effusions and bibasilar infiltrates. Osmar Chavez Jr., MD Celiac/Hepatic Arteriogram 12/27/15 0000 Signed Impressions: Service Date/Time: December 13:41 - CONCLUSION: 1. No active GI bleed identified. Robert Mckinney MD Abdomen X-Ray 12/18/15 0000 Signed Impressions: Service Date/Time: Friday, December 18, 2015 16:05 - CONCLUSION: Feeding tube tip is at the gastric antrum. Arnaldo Elias MD Chest CT 12/14/15 0000 Signed Impressions: Service Date/Time: Monday, December 14, 2015 06:12 - CONCLUSION: 1. Cardiomegaly with bilateral consolidation, likely CHF. Pneumonia cannot be excluded. 2. Small right pleural effusion. Wojciech Lockhart MD Head CT 12/02/15 1013 Signed Impressions: Service Date/Time: Wednesday, December 02, 2015 11:00 - CONCLUSION: 1. No intracranial abnormality is seen. 2. Air-fluid level in the right maxillary sinus. rAnaldo Reyes MD Physical Exam GENERAL: On vent , SKIN: + minimal jaundice. Anasarca Necrotic based wounds on L forearm unstagable but probably full thickness -no e/ o infx however, not fluctuant look dryer No e/o infx HEENT: no icterus, NECK: Trach in place CARDIOVASCULAR: systolic murmur in base of heart RESPIRATORY/CHEST: scattered rhonchi on auscultation. Breath sounds equal bilaterally. GASTROINTESTINAL: Abdomen with VAC in place serosang dc and stoma in place with dark brown soft stool BEV in place with serous drainage GENITOURINARY: Sandoval catheter in place with clear light yellow urine scrotum is mildly edematous. Necrotic based ulcer at the base of penis shaft and glans MUSCULOSKELETAL: Extremities no cyanosis, Edema 2-3+ soft puitting with poorly healing wounds NEUROLOGICAL: awake and -interactive; making eye contact, following commands ; LINES: NO evidence of infection Assessment & Plan Remarks Sepsis related to Cdiff and Intra abdominal peritonitis. - sp subtotal colectomy and ileostomy SP colon perfocation and intraperitoneal gross contamination ? Cdiff Colitis Noted Cdiff PCR is negative3/3 ? Zinc preparation in perianal care could cause false negative test. Path c/o Cdiff Colitis. - repeat path favouring ischemia RUE severe nec fasc 2/2 MSSA - skin grafting was planned, but cancelled - S/P I and D x 3 - clinically resolved MSSA bacteremia 2/2 RUE infx - resolved E.coli bacteremia on presentation -source is likely gut Immunosuppressed on steroids, s/p splenectomy. PCN allergy, but no probs with Keflex per report. ARF/ DEIRDRE/ATN 2/2 sepsis -stable Patient is stable and clinically improving Sp upper GI bleeding - resolved Leukemoid reaction and fever - improving PLAN: Continue IV cefepime,flagyl IV, micafungin IV anticipate to cont abx wjhile fever, leukocuytosis persist fu CBC fu clinically dw Argelia Carreno MD Jan 04, 2016 22:59
[2016-01-05] VITALS (18 sets, daily range): BP systolic 106–152; BP diastolic 61–86; PULSE 65–118; RESP 17–26; TEMP 98.8–102.3; O2SAT 98–100
[2016-01-05] MEDS: oxyCODONE HCL ORAL CONC 20 MG/ML SYRINGE PO SCH ×6 (01:05→20:55)
[2016-01-05] MEDS: METOPROLOL TARTRATE 5 MG/5 ML VIAL IV PUSH SCH ×5 (03:38→20:55)
[2016-01-05] MEDS: metroNIDAZOLE 500 MG INJ 100 ML IV SCH ×3 (03:38→20:56)
[2016-01-05] MEDS: FREE WATER G-TUBE SCH ×5 (03:38→20:00)
[2016-01-05] MEDS: CHLORHEXIDINE GLUCONATE 2 % 1 PACK (2 CLOTHS) TOP SCH (03:38)
[2016-01-05] MEDS: HYDROmorphone HCL PF 2 MG/ML VIAL IV PUSH PRN ×3 (03:39→20:55)
[2016-01-05 04:41] LABS: HEMATOCRIT 25.4 % (39.0-51.0); MEAN CELL VOLUME 92.6 FL (80.0-100.0); MEAN CORPUSCULAR HEMOGLOBIN 28.7 PG (27.0-34.0); PLATELET COUNT 291 TH/MM3 (150-450); RED BLOOD COUNT 2.74 MIL/MM3 (4.50-5.90); RED CELL DISTRIBUTION WIDTH 20.5 % (11.6-17.2); WHITE BLOOD COUNT 33.9 TH/MM3 (4.0-11.0)
[2016-01-05 04:45] LABS: REVIEW FLAG FINAL
[2016-01-05] MEDS: INSULIN ASPART SUPPLEMENTAL SCALE SQ SCH ×3 (04:45→18:00)
[2016-01-05] MEDS: ACETAMINOPHEN 650 MG/20.3 ML UDC PO SCH ×3 (04:45→18:18)
[2016-01-05] MEDS: CEFEPIME INJ 2,000 MG in SODIUM CHLORIDE 0.9% INJ 100 ML IV SCH ×2 (04:45→18:19)
[2016-01-05] MEDS: SODIUM CHLORIDE 0.9% FLUSH 5 ML FLUSH IVF PRN ×2 (07:53→20:56)
[2016-01-05] MEDS: predniSONE 5 MG/5 ML CUP PO SCH (07:53)
[2016-01-05] MEDS: PANTOPRAZOLE SODIUM 40 MG VIAL IV PUSH SCH ×2 (07:56→20:55)
[2016-01-05] MEDS: NEOMYCIN/POLYMYXIN/BACITRACIN OINT 15 GM TUBE TOPICAL SCH ×2 (07:57→20:57)
[2016-01-05] MEDS: POVIDONE IODINE 10% OINT 30 GM TUBE TOPICAL SCH (07:57)
[2016-01-05] MEDS: CHLORHEXIDINE 0.12% (ORAL KIT) 15 ML CUP MT SCH ×2 (07:57→20:00)
[2016-01-05] MEDS: fentaNYL DRIP 250 ML IV SCH ×2 (08:52→21:03)
--- NOTE | 2016-01-05 10:07 | HHI.CCPN ---
Subjective Remarks/Hospital Course 55-year-old male brought by EMS with altered mental status. He has been confused for 2 days but this morning has been the worst. He has history of chronic opiate medications including methadone and morphine that he takes for pain management and hence they gave him Narcan IV which brought the GCS up to 13. The blood glucose was 74. He has open wounds from his right upper and bilateral lower extremities. He has history of hepatitis C. Last week he was pealing and eating shrimps. Bedside blood sugar was 76 in the ER. He was tachycardic in 1 teens and was intubated in the ED for airway protection. Admitted to ICU with sepsis due to Staph Aureus hand infection and E. Coli bacteriemia. 12/05 Patient remains sedated with Fentanyl and intubated. On Levophed 3 mics, Vasopressin 0.03 mics and Bicarb drip. T:99.8 TF placed on hold OGT to LIWS last night - gastric drainage 525ml overnight. 12/06 Patient is sedated with Fentanyl and intubated, On Levophed 3 mics, off vasopressin. Gastric output 400ml in 24 hrs. KUB abdomen yesterday mildly distended colon otherwise non specific KUB. 12/07 Patient is off sedation remains intubated tolerated CPAP for most day yesterday. Afebrile. on no drips, tolerating tube feeds. 12/08 Patient went to OR yesterday for debridement and irrigation of right forearm and wound VAC placement. Given 2U PRBC and 2u PLT yesterday and currently receiving 1of 2 u additional PRBC. Hgb 7.7, PLT 43 this morning. Patient also started on pressors now on Levophed 10 mics. Vasopressin 0.04 mics. On no sedation. 12/09 Patient remains intubated off pressors, Afebrile. Tolerating tube feeds. Afebrile. 12/10 Patient is sedated with Fentanyl and intubated. Awake and follows commands off sedation. Afebrile. 12/11 Patient had ?SVT overnight given Lopressor 2.5mg IV x1, Remains intubated and sedated with Fentanyl. Afebrile. Tolerating TF. 12/12 Patient spoked fever last night with T: 101.5, sedated with Fentanyl and intubated. 12/13 Patient had an episode of desaturation overnight required increase FIO2/ PEE now on ACV with RR 14, TV 550, PEEP: 12, FIO2 60% with sats 100% CT chest performed overnight showed b/l consolidation and small pleural effusion. Had T: 100.0 last night. 12/14 Tolerating PS 15/CPAP 10 FiO2 40% with rSBI 38, weaning. . Awake and alert , following commands. Hypotensive overnight and levophed restarted up to 12 mcg/ min. Nurse has been weaning throughout the day. Suspected adrenal insufficiency as he was on prednisone as outpatient for gout and has not been on stress dose steroids. Given decadron. 12/15 Transfused 1 unit PRBC for Hgb 7.0 yesterday, 1 unit PRBC for Hgb 6.6 today and now Hgb 8.3. Does not clinically have e/o active GI bleeding and wound vac output nonbloody. Stool 1500 output, C diff negative. No abdominal pain. Remains Awake and alert, remained on CPAP 10/5 last night and is now tolerating CPAP 5/5. 12/16: Extubated yesterday tolerating well. Breathing comfortably. Able to follow commands. UO 1.8 L in 24 hours. Na slightly increased to 153. 12/17: Significantly worse this AM. WBC up to 28 from 16. Hgb 5.2 from 7.9. tachycardic. pale this AM. states he feels tired. Continues on BiPAP. Plan for debridement of his arms today. LIJ CVL does not have any signs of overt infection. 12/18: Blood cell count continues to rise today to 30 from 28. Required 1 unit of blood for hemoglobin of 6.6 which improved to 7.7 this morning. However, patient remains tachycardic in the 120s and significantly pale. CT abdomen and pelvis ordered and pending. Tachypneic with respiratory rate in the 30s. Only small amount of dark tarry stool yesterday with approximately 300 cc of stool output. C. difficile toxin negative 3. After discussion with infectious disease, restart vancomycin, cefepime, Flagyl, micafungin. Horn cultures are pending. Per discussion with GI, will not scope as endoscopy is high risk given his tenuous respiratory status this point. Slightly worse hypernatremia as well as worsening acute kidney injury this morning. 12/19: POD 1 s/p ex-lap, washout for perforated ascending colon with extended right hemicolectomy, primary ileocolic anastamosis, open abdomen, septic shock, acute hypoxic and hypercarbic respiratory failure. Significantly critically ill overnight: required 6L ivf resuscitation, 1 unit prbc, norepinephrine, vasopressin, stress dose hydrocortisone. This morning, remains on high-dose vasopressors. still has large volume ivf requirement. Significant SIRS response. Vent requirements increasing with all this volume resuscitation, PEEP up to 10. He remains critically ill, and although I do believe we have surgical source control, I anticipate he will continue to clinically decline before he starts to make improvements. 12/20: Off pressors. follows commands on sedation holiday. +11L over last 3 days during acute illness, +22L since admission. We are going to have to get some of this volume back before we are able to close him given his severe anasarca. 12/21: Taken back to the OR yesterday afternoon for washout and completion colectomy. Postoperatively was significantly under resuscitated as well as had ongoing active oozing. Patient was coagulopathy. The patient was in distributive and hemorrhagic shock. The patient was given multiple units of blood products overnight. Patient was thrombocytopenic, hypofibrinogenemic, coagulopathic. Given significant volume of blood product resuscitation: 24h blood products: 13 prbc 8 ffp 2 plt 1 10-pack cryo This morning continues to have significant amount of bright red output out of his BEV and wound VAC, approximately 500 cc an hour out of his wound VAC, and approximately 75 an mils every 10 minutes out of a BEV. I discussed with surgery and we will correct his coagulopathy and plan to go back to the OR for exploration early this afternoon. 12/22: Clinically starting to improve hemodynamically. off vasopressors. Net+ 26L. CVP rising to 14. UOP adequate. Hgb 7 this AM. 12/23 Seen postop. Hypertensive, BP improved with additional pain medicine. Remains net positive but urine output excellent 3L in 24 hours. Remains on Lasix gtt. went to OR today status post wound VAC change and partial closure 12/24: Fascia was closed yesterday. Wound Vac in place. Remains sedated. -2L negative balance, but with increasing BUN/creat. Discontinue Bumex infusion, start scheduled Bumex 2 mg IV every 12 with IV albumin. 12/25: Overnight became hypotensive requiring Levophed to be restarted. Hemoglobin dropped to 4.1. Noted to have bloody drainage from G-tube and dorsal ileostomy with black stool output 12/26: s/p EGD yesterday-2 gastric ulcers bleeding, stomach a significant part had decreased discoloration indicating probable ischemia. s/p epi injection and cauterization. Continues to have coffee ground G tube output, black tarry Ileostomy output. Hemoglobin down to 6.4 getting 2 units of PRBC. GI recent recommending intervention radiology consult. 12/27: For trach today. Meds ordered. Hgb decline consistent with recent transfusions and senescent cells. 12/28: Trach clean, dry. Start SBTs. Check prealbumin. Continue TPN. 12/29: Looks in direction of voice. I have not seen more purposeful reactions. Line > 12 days old, replace today. Prealbumin 20 - good response to TPN. 12/30: Remains vented, encephalopathic, puss like drainage from left hand, WBC increased 01/01: no significant changes. continues to remain critically ill with minimal improvements over the last week. abdomen closed. still total body volume overloaded. 01/02: more awake today than yesterday. continues to be critically ill with minimal improvements overall. need to look towards placement. -900 yesterday. 01/03: up in chair yesterday. tolerated short run of SBT 15/5/40%. net euvolemic. wbc downtrending. 01/04: wbc slightly uptrended 33 from 30, more acidotic on BMP (14 from 20). Also spiking fevers to 102.3 despite tylenol. continues on broad spectrum abx. yesterday's cxr had what may be a new LLL infiltrate. today, though, he is following commands and more awake and alert. Objective Vital Signs Date Time Temp Pulse Resp B/P Pulse Ox O2 Delivery O2 Flow Rate FiO2 01/05/16 07:36 98 35 01/05/16 06:00 108 01/05/16 04:00 99.3 26 115/61 01/03/16 08:44 Ventilator Intake and Output 01/04/16 01/04/16 01/05/16 08:00 16:00 00:00 Intake Total 1290 ml 1659 ml 1339 ml Output Total 1180 ml 1650 ml 1705 ml Balance 110 ml 9 ml -366 ml Result Diagram: 01/05/16 0335 01/05/16 0335 Imaging Last Impressions Chest X-Ray 12/17/15 0600 Signed Impressions: Service Date/Time: Thursday, December 17, 2015 03:25 - CONCLUSION: Persistent left lower lobe consolidation. Osmar Alegria MD Chest CT 12/14/15 0000 Signed Impressions: Service Date/Time: Monday, December 14, 2015 06:12 - CONCLUSION: 1. Cardiomegaly with bilateral consolidation, likely CHF. Pneumonia cannot be excluded. 2. Small right pleural effusion. Wojciech Lockhart MD Abdomen X-Ray 12/06/15 0000 Signed Impressions: Service Date/Time: November 09:53 - CONCLUSION: Nonspecific KUB. Air is seen within a mildly distended colon but contrast is clearly seen in the rectum. Arnaldo Reyes MD Abdomen/Pelvis CT 12/04/15 0000 Signed Impressions: Service Date/Time: Friday, December 04, 2015 16:24 - CONCLUSION: 1. Mildly distended small bowel in the mid and lower abdomen. Contrast is clearly seen extending into the distal small bowel and ascending colon so a complete obstruction is not seen. A transition point is not seen. This pattern likely represents an ileus versus a partial obstruction. 2. Multiple nonobstructing renal stones. 3. Abnormal appearance of the spleen which appears to represent a splenule. It could be correlated if the patient has had either primary splenic removal or splenic injury and this is what is either left of the spleen or a developing splenule. This is likely of no significance. 4. Mild ascites. 5. Increased density within the gallbladder representing either tumefactive sludge or noncalcified stones. 6. Mild bilateral pleural effusions with prominent areas of lower lobe atelectasis or consolidation at the bases bilaterally. 7. Subacute to chronic bilateral rib fractures and multiple compression fractures in the lower thoracic and lumbar spine as described above. The patient does have a prior CT examination from 08/26/2014. All the compression deformities described above are new when compared to that scan. Arnaldo Reyes MD Head CT 12/02/15 1013 Signed Impressions: Service Date/Time: Wednesday, December 02, 2015 11:00 - CONCLUSION: 1. No intracranial abnormality is seen. 2. Air-fluid level in the right maxillary sinus. Arnaldo Reyes MD Objective Remarks GENERAL: Middle-aged male, lying in bed, trached. remains critically ill. HEENT: NCAT. mucous membranes moist. NECK: trach in place. obese neck. difficult to assess JVD. right SC triple lumen catheter in place, site clean RESPIRATORY: Breath sounds equal bilaterally. coarse crackles b/l. CARDIOVASCULAR: Tachycardic, regular rhythm without murmurs, rubs. GASTROINTESTINAL: Abdomen fascia is closed midline wound vac in place. nontender, nondistended. no guarding. MUSCULOSKELETAL: Generalized anasarca. Multiple open wounds in the lower extremity. RUE - with wound vac in place. L upper extremity dressing in place. NEURO: RASS - 1. briskly follows commands this morning. Remains on fentanyl. 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 He has made improvements in his shock state. He is now severely volume overloaded given the large volume resuscitation he required for his shock. He also continues to have an DEIRDRE. We've made slight improvements in hemodynamics. However we are still grossly anasarca and volume overloaded. This morning he clinically is unchanged , but his objective data suggests he is worsening again, with uptrending wbc, febrile, and more acidotic. I discussed with ID and we will repeat CT chest/abd /pelvis without contrast to search for source. I will also perform diagnostic bronch, and re-culture patient. I will ask ID about re-broadening his abx. I am very concerned at this point that despite broad spectrum abx, he may have a new source of infection. He remains critically ill at this time. Neuro: Acute encephalopathy secondary to sepsis Acute pain secondary to multiple soft tissue infections Acute post-surgical pain Chronic pain - Versed off, fentanyl to wean as tolerated - fentanyl patch 75mcg/h q3d for long acting pain control. - liquid tylenol 650mg per tube q6h. - Dilaudid 2mg iv q4h prn for breakthrough pain. - ketamine drip d/cd 12/22. - oxycodone 20mg per tube q4h scheduled to help wean off fentanyl infusion. Respiratory Acute respiratory failure-extubated 12/16/15, reintubated for surgery 12/18 Acute hypoxic and hypercarbic respiratory failure Acute healthcare associated pneumonia- resolved NIGEL on home CPAP - Extubated 12/15 - reintubated for emergent ex-lap 12/18. - Tracheostomy 12/27 - Vent bundle. Head of bed at 30 degrees. Nebs q6h and q2h prn. - daily spontaneous breathing trials. slow progress. today 15//40%, unable to wean more today due to tachypnea. CV Hemorrhagic shock- resolved Septic Shock- resolved Volume overload - keep map > 65 mmHg. - Cortisol level 14 on 12/14 - Prednisone 10mg daily, will begin slow taper. - Echo 12/07 EF 65-70%, grade I diastolic dysfunction Renal: DEIRDRE Hypernatremia Acute intravascular and total body volume overload - unable to aggressively diurese given tenuous renal function. - Prerenal azotemia persists while attempting to mobilize excess edema fluid. - free H2O via Gut to 400 q4h. FEN/GI Acute GIB, hemorrhagic shock Perforated right colon with colitis s/p ex-lap, extended right hemicolectomy with primary ileocolic anastamosis, washout, open abdomen (12/18) Acute protein calorie malnutrition- severe Hypokalemia Total body volume overload Intravascular hypervolemia - PPI i.v. BID - EGD 12/26/15 showed 2 large gastric ulcers with active bleeding status post epinephrine infusion and cauterization - ICU electrolyte protocol - Daily CMP - OR on 12/24 with Removal of VAC, washout, pancreatic drain and pelvic drain placement, gastrostomy, feeding jejunostomy and closure of abdomen with application of VAC device in the subcutaneous tissue. - TFs via jejunostomy at goal - off TPN 01/01. - on full TF at goal. Heme: Acute Anemia secondary to acute blood loss Thrombocytopenia Hypofibrinogenemia secondary to consumption and acute blood loss Coagulopathy secondary to consumption and acute blood loss --monitor CBC, qday H/H. --Hep PLT ab negative on 12/03 --Platelets FFP fibrinogen as needed --Trend Hgb - Ferrous Sulfate TID - does not meet transfusion triggers at this time. ID Severe sepsis Necrotizing Fascitis - MSSA on wound culture 12/07. Ecoli bacteremia 12/01 MSSA bacteremia 12/05. Cleared on f/u blood culture 12/07, 12/12. Leukocytosis Sepsis of Intra-abdominal origin. C. difficile toxic megacolon --Debridement 12/01 p.m at bedside by Dr Pedro and Dr. Hartmann --R hand, forearm and olecranon bursa I and D and Wound vac 12/07 Dr Chavez. -- IV cefepime,flagyl IV, micafungin. PO/intracolonic treatment for C.diff is contraindicated per --12/17 blood cultures: NGTD 12/17 central line culture: NGTD 12/17 urine cultures: NGTD 12/17 sputum cultures: NGTD C. difficile toxin 12/17: Negative (3rd negative toxin screen) 01/04: horn culture, bronch with BAL, CT chest/abd/pelvis without contrast. consider changing abx. --ID Dr. Becerra Endocrine: Hyperglycemia of Critical Illness Diabetes - off Insulin drip - Moderate SSI - Levemir BID on hold. - Prednisone 10mg po daily. slow taper: 7.5mg daily x 7 days, then 5mg daily x 7 days, then off. Prophylaxis: GI Prophylaxis: -- Protonix IV BID DVT Prophylaxis: - SCDs - Lovenox discontinued due to acute GI bleed. will talk with Dr. Miller about possible restarting DVT prophylaxis. Lines: -- Sandoval -- left axillary arterial line 12/18: we will change art line as it has been in for > 2 weeks. -- right SCV CVL 12/29: we will change central line in the setting of fever and elevated wbc. Dispo: -- He remains in the [facility] and severely critically ill, ventilator weaning failure , ongoing sepsis. Critical Care: The total critical care time was 51 minutes. Time to perform other separately billable procedures was not included in the critical care time. Problem Qualifiers (1) Respiratory failure: Qualified Code: J96.00 - Acute respiratory failure, unspecified whether with hypoxia or hypercapnia (2) Altered mental status: Qualified Code: R41.0 - Delirium (3) Sepsis: Qualified Code: A41.9 - Sepsis, due to unspecified organism Jeyson Fernández MD Jan 05, 2016 10:07
[2016-01-05] MEDS ORDERED: fentaNYL CITRATE 250 MCG/5 ML AMP IV PUSH ONE (13:00)
[2016-01-05] MEDS ORDERED: TERBUTALINE INJ 1 MG/ML AMP SQ PRN (13:00)
[2016-01-05] MEDS ORDERED: PROPOFOL 1000 MG/100 ML INJ 100 ML IV SCH (13:00)
[2016-01-05] MEDS ORDERED: NOREPINEPHRINE-DEXTROSE DRIP 250 ML IV SCH (13:00)
[2016-01-05] MEDS ORDERED: CISATRACURIUM BESYLATE 200 MG/20 ML VIAL IV ONE (13:00)
[2016-01-05] MEDS ORDERED: CISATRACURIUM BESYLATE 20 MG/10 ML VIAL IV ONE ×2 (13:30)
[2016-01-05] MEDS: MICAFUNGIN INJ 150 MG in SODIUM CHLORIDE 0.9% INJ 100 ML IV SCH (14:00)
--- NOTE | 2016-01-05 15:11 | PD.PROCEDR ---
Procedure Note Procedure Procedure: Arterial Line Placement Right axillary arterial line Diagnosis: Multiorgan system dysfunction Indications: Need for invasive hemodynamic monitoring Consent: Written consent was obtained Description of the Procedure: The right axilla was prepped and draped sterilely. 1% lidocaine was used for local anesthesia. The pulse was located and a needle was advanced into the artery. A 20 gauge, 12 cm catheter was advanced into the artery using a modified Seldinger technique. The catheter was sutured to the skin and a sterile dressing was applied. The catheter was connected to a pressure transducer and an arterial waveform was noted. Ultrasound Guidance: Ultrasound was used to visualize the vascular anatomy of the right axilla. The vascular anatomy was normal. Under direct ultrasound guidance, the needle was advanced into the axillary artery, taking care to avoid the brachial plexus. There were no immediate complications noted. There was minimal EBL. I personally performed the procedure. Jeyson Fernández MD Jan 05, 2016 15:11
--- NOTE | 2016-01-05 15:13 | PD.PROCEDR ---
Procedure Note Procedure Central Line Procedure Note Right IJ 7 [place]uran triple-lumen catheter Diagnosis: Multiorgan system dysfunction Indications: Need for central pressure monitoring Consent: Written consent was obtained Anesthesia: 1% lidocaine locally, propofol, fentanyl Description of the Procedure: The patient was placed in the supine, mild- Trendelenburg position. The area was prepped and draped sterilely. A 19g needle was inserted under negative pressure aspiration and dark venous blood was obtained. A guidewire was inserted easily without resistance. A small incision was made using a #11 blade. Using a modified Seldinger technique, the dilator and 7 [place]uran, 20 cm catheter were advanced over the guidewire without resistance. All ports were aspirated and flushed, and had brisk blood return. The line was secured at 18 cm at the skin using 2-0 silk interrupted sutures. A Biopatch and Transparent sterile dressing were applied. There were no immediate complications noted. There was minimal EBL. The patient tolerated the procedure well. Ultrasound Guidance: Ultrasound guidance was used to identify the vascular anatomy of the right anterior neck, and right internal jugular vein. The vascular anatomy was normal. The vessel was cannulated under direct, real-time ultrasound visualization. After placement of the guidewire, confirmation of the guidewire in the lumen of the vessel was made using ultrasound visualization , before dilation of the tract. A Chest x-ray has been ordered. I personally performed the procedure. Jeyson Fernández MD Jan 05, 2016 15:13
--- NOTE | 2016-01-05 15:15 | PD.PROCEDR ---
Procedure Note Procedure Procedure: Diagnostic Fiberoptic Bronchoscopy Diagnosis: Sepsis, suspected pulmonary source, failure of deep tracheal aspirate to produce organism Indications: Suspected pulmonary source of infection, failure of treatment deep tracheal aspirate to produce meaningful clinical information. Consent: Written consent was obtained Anesthesia: Propofol, fentanyl, cisatracurium Description of the Procedure: The patient was sedated and mechanically ventilated. The patient was placed on 100% FIO2 and a volume control mode of ventilation. The fiberoptic bronchoscopy was inserted via 8.0 cuffed Shiley tracheostomy. The trachea, right and left mainstem bronchi, and sub-segmental bronchi were evaluated. The endobronchial anatomy was normal. Findings: The right mainstem and subsegmental bronchi on the right were clear of secretions. In the left lower lobe that was copious amounts of purulent secretions coming from the left lower lobe, a very small amount from the left lingular subsegmental bronchi. These were suctioned aggressively. BAL samples: Left lower lobe and left upper lobe BALs were sent. The patient tolerated the procedure well with no hemodynamic instability or hypoxia. There were no immediate complications noted. At the conclusion of the procedure, the patient was placed back on their pre-procedure ventilatory settings. There was minimal EBL. A chest x-ray has been ordered. I personally performed the procedure. Jeyson Fernández MD Jan 05, 2016 15:15
--- NOTE | 2016-01-05 15:36 | RADRPT ---
EXAM DATE/TIME: 01/05/2016 15:06 [facility] COMPARISON: CHEST SINGLE AP, January 04, 2016, 12:33. INDICATIONS : Central line placement. MEDICAL HISTORY : None. SURGICAL HISTORY : None. ENCOUNTER: Initial ACUITY: 1 day PAIN SCORE: Non-responsive. LOCATION: Bilateral chest FINDINGS: New right-sided central line is in place. A central line appears to be in good position. No pneumotho rax. Tracheostomy tube remains in place. There continues to be a patchy infiltrate in the left lower lung. Right lung is grossly clear. The heart size is stable. CONCLUSION: Right central line placement. No pneumothorax. Alfredo Maldonado MD on January 05, 2016 at 15:33 Board Certified Radiologist. This report was verified electronically.
--- NOTE | 2016-01-05 15:54 | HHI.PR ---
Subjective Subjective Notes Patient was febrile this AM Underwent bronchoscopy and cultures sent. Objective Vitals/I&O Vital Signs Date Time Temp Pulse Resp B/P Pulse Ox O2 Delivery O2 Flow Rate FiO2 01/05/16 15:45 100 35 01/05/16 10:00 104 01/05/16 08:00 99.8 22 132/86 01/03/16 08:44 Ventilator Labs Laboratory Tests Test 01/05/16 03:35 White Blood Count 33.9 Red Blood Count 2.74 Hemoglobin 7.9 Hematocrit 25.4 Mean Corpuscular Volume 92.6 Mean Corpuscular Hemoglobin 28.7 Mean Corpuscular Hemoglobin 31.0 Concent Red Cell Distribution Width 20.5 Platelet Count 291 Mean Platelet Volume 10.2 Sodium Level 150 Potassium Level 4.0 Chloride Level 123 Carbon Dioxide Level 15.0 Anion Gap 12 Blood Urea Nitrogen 55 Creatinine 1.31 Estimat Glomerular Filtration 57 Rate Random Glucose 130 Calcium Level 7.9 Date/Time Procedure Status Source Growth 01/05/16 14:50 Aerobic Blood Culture Received Blood Peripheral Pending 01/05/16 14:50 Anaerobic Blood Culture Received Blood Peripheral Pending Radiology Last Impressions Chest X-Ray 12/28/15 0000 Signed Impressions: Service Date/Time: Monday, December 28, 2015 14:23 - CONCLUSION: Large left pleural effusion and left lung base consolidation. Freddy Connor MD Abdomen/Pelvis CT 12/19/15 0000 Signed Impressions: Service Date/Time: Saturday, December 19, 2015 10:57 - CONCLUSION: 1. Adjacent volume pneumoperitoneum is observed consistent with perforation of a hollow viscus. This is presumably colonic in origin due to the diffuse inflammatory process involving the colon. I do not clearly identify the source of the pneumoperitoneum however. There is mild dilatation of the small bowel likely an ileus in nature. A significant volume of ascitic fluid is noted. 2. Bibasilar atelectasis and bilateral pleural effusions. 3. Small pericardial effusion. 4. Small bilateral nonobstructing renal calculi. 5. I spoke with Dr. Sanchez concerning the findings. Osmar Chavez Jr., MD Abdomen X-Ray 12/18/15 0000 Signed Impressions: Service Date/Time: Friday, December 18, 2015 16:05 - CONCLUSION: Feeding tube tip is at the gastric antrum. Arnaldo Elias MD Chest CT 12/14/15 0000 Signed Impressions: Service Date/Time: Monday, December 14, 2015 06:12 - CONCLUSION: 1. Cardiomegaly with bilateral consolidation, likely CHF. Pneumonia cannot be excluded. 2. Small right pleural effusion. Wojciech Lockhart MD Head CT 12/02/15 1013 Signed Impressions: Service Date/Time: Wednesday, December 02, 2015 11:00 - CONCLUSION: 1. No intracranial abnormality is seen. 2. Air-fluid level in the right maxillary sinus. Arnaldo Reyes MD Lungs: Clear Abdomen: Non-distended Narrative Exam VAC dressing in place; serosanguinous drainage from line. BEV with minimal boyd drainage; no further bloody drainage. A/P Problem List: (1) Dependent on ventilator (2) Open wound of abdomen (3) Ileostomy in place (4) Jejunostomy tube present (5) S/P total colectomy (6) Acute colitis (7) Gastrostomy tube in place Assessment and Plan POD #3/5 for colon resection and takeback, now stable. WBC's remain elevated Plan: Per critical care and plastics. Problem Qualifiers (1) Open wound of abdomen: Qualified Code: S31.109D - Open wound of abdomen, subsequent encounter Owen Soto MD Jan 05, 2016 15:54
[2016-01-05] MEDS ORDERED: Vancomycin Consult Pharmacy 1 EA OTHER SCH (16:15)
--- NOTE | 2016-01-05 16:28 | HHI.IDPN ---
Subjective Subjective Remarks ID COVERAGE Notes reviewed Has been treated for RUE infection, has had debridement and chan s wound vac in place. During this hospiatlization developed surgical abdomen and require exp lap, subtotal colectomy, and reop for control of bleeding. Path report of colon suggestive of PMC. Has been vent dependent and under went trach 12/27 Has had persistent leukocytosis, decreased to 30K but has increased again to 33K Has had intermittent temps On levophed CXR now with some new infiltrates Sedated on the vent Has multiple tubes in the abdomen Antibiotics cefepime IV, IV flagyl, micafungin IV Lines RIJ TLC RSC TLC Past Medical History RA HCV sp splenectomy Allergies: Coded Allergies: Compazine (Verified Allergy, Severe, VOMITING, RASH, 08/26/14) SLURRED SPEECH, MIGRAINES Demerol (Verified Allergy, Severe, VOMITING, 08/26/14) Levaquin (Verified Allergy, Severe, 08/26/14) Penicillin (Verified Allergy, Severe, Rash, 08/26/14) Phenergan (Verified Allergy, Severe, VOMITING, 08/26/14) Uncoded Allergies: ANTI-CONVULSIVES (Allergy, Severe, MIGRAINES, SLURRED SPEECH,, 01/23/14) Objective . Vital Signs Date Time Temp Pulse Resp B/P Pulse Ox O2 Delivery O2 Flow Rate FiO2 01/05/16 15:45 100 35 01/05/16 13:20 99 100 01/05/16 11:23 100 35 01/05/16 10:00 104 01/05/16 08:00 118 01/05/16 08:00 99.8 118 22 132/86 99 01/05/16 08:00 35 01/05/16 07:36 98 35 01/05/16 07:35 35 01/05/16 06:00 108 01/05/16 04:00 99 35 01/05/16 04:00 90 01/05/16 04:00 35 01/05/16 04:00 99.3 90 26 115/61 100 01/05/16 02:00 97 01/05/16 00:49 100 35 01/05/16 00:00 87 01/05/16 00:00 35 01/05/16 00:00 99.0 85 20 128/73 100 01/04/16 22:00 84 01/04/16 21:59 100 35 01/04/16 20:18 98 35 01/04/16 20:00 99.0 88 10 108/64 98 01/04/16 20:00 35 01/04/16 20:00 88 01/04/16 18:00 96 01/04/16 16:33 100 35 01/04/16 01/04/16 01/05/16 14:59 22:59 06:59 Intake Total 1659 ml 1339 ml 1075 ml Output Total 1650 ml 1705 ml 1160 ml Balance 9 ml -366 ml -85 ml IV Total 378 ml 479 ml 271 ml Tube Feeding 481 ml 460 ml 379 ml Other 800 ml 400 ml 425 ml Output Urine Total 575 ml 650 ml 450 ml Stool Total 325 ml 275 ml 300 ml Gastric Drainage Total 500 ml 550 ml 400 ml Drainage Total 250 ml 230 ml 10 ml . Laboratory Tests Test 01/04/16 01/05/16 05:05 03:35 White Blood Count 30.7 TH/MM3 33.9 TH/MM3 Red Blood Count 2.68 MIL/MM3 2.74 MIL/MM3 Hemoglobin 7.9 GM/DL 7.9 GM/DL Hematocrit 24.9 % 25.4 % Mean Corpuscular Volume 92.9 FL 92.6 FL Mean Corpuscular Hemoglobin 29.4 PG 28.7 PG Mean Corpuscular Hemoglobin 31.6 % 31.0 % Concent Red Cell Distribution Width 19.6 % 20.5 % Platelet Count 277 TH/MM3 291 TH/MM3 Mean Platelet Volume 10.1 FL 10.2 FL Laboratory Tests Test 01/04/16 01/05/16 05:05 03:35 Sodium Level 153 MEQ/L 150 MEQ/L Potassium Level 3.5 MEQ/L 4.0 MEQ/L Chloride Level 125 MEQ/L 123 MEQ/L Carbon Dioxide Level 20.1 MEQ/L 15.0 MEQ/L Anion Gap 8 MEQ/L 12 MEQ/L Blood Urea Nitrogen 60 MG/DL 55 MG/DL Creatinine 1.36 MG/DL 1.31 MG/DL Estimat Glomerular Filtration 55 ML/MIN 57 ML/MIN Rate Random Glucose 138 MG/DL 130 MG/DL Calcium Level 7.9 MG/DL 7.9 MG/DL Microbiology Date/Time Procedure Status Source Growth 01/05/16 12:58 Aerobic Blood Culture Received Blood Peripheral Pending 01/05/16 12:58 Anaerobic Blood Culture Received Blood Peripheral Pending 01/05/16 14:50 Aerobic Blood Culture Received Blood Peripheral Pending 01/05/16 14:50 Anaerobic Blood Culture Received Blood Peripheral Pending 01/05/16 14:50 Aerobic Blood Culture Received Blood Peripheral Pending 01/05/16 14:50 Anaerobic Blood Culture Received Blood Peripheral Pending Imaging Last Impressions Chest X-Ray 01/04/16 1200 Signed Impressions: Service Date/Time: Monday, January 04, 2016 12:33 - CONCLUSION: Stable chest , consolidation and small pleural effusion on the left. Raudel Mckinney MD FACR Abdomen/Pelvis CT 12/31/15 0000 Signed Impressions: Service Date/Time: Thursday, December 31, 2015 21:09 - CONCLUSION: 1. There is stranding of the mesentery particularly adjacent to several loops of jejunum within the left abdomen. There is no abscess, obstruction, or perforation. 2. Near complete colectomy with right lower quadrant ileostomy. 3. Bilateral nonobstructing renal calculi. 4. Bilateral pleural effusions and bibasilar infiltrates. Osmar Chavez Jr., MD Celiac/Hepatic Arteriogram 12/27/15 0000 Signed Impressions: Service Date/Time: December 13:41 - CONCLUSION: 1. No active GI bleed identified. Robert Mckinney MD Abdomen X-Ray 12/18/15 0000 Signed Impressions: Service Date/Time: Friday, December 18, 2015 16:05 - CONCLUSION: Feeding tube tip is at the gastric antrum. Arnaldo Elisa MD Chest CT 12/14/15 0000 Signed Impressions: Service Date/Time: Monday, December 14, 2015 06:12 - CONCLUSION: 1. Cardiomegaly with bilateral consolidation, likely CHF. Pneumonia cannot be excluded. 2. Small right pleural effusion. Wojciech Lockhart MD Head CT 12/02/15 1013 Signed Impressions: Service Date/Time: Wednesday, December 02, 2015 11:00 - CONCLUSION: 1. No intracranial abnormality is seen. 2. Air-fluid level in the right maxillary sinus. Arnaldo Reyes MD Physical Exam GENERAL: On vent , SKIN: + minimal jaundice. Anasarca HEENT: no icterus, nno nasal discharge NECK: Trach in place CARDIOVASCULAR: systolic murmur in base of heart RESPIRATORY/CHEST: scattered rhonchi on auscultation. Breath sounds equal bilaterally. GASTROINTESTINAL: Abdomen with VAC in place serosang dc and stoma in place with dark brown soft stool BEV in place with serous drainage GENITOURINARY: Sandoval catheter in place with clear light yellow urine scrotum is mildly edematous. Necrotic based ulcer at the base of penis shaft and glans MUSCULOSKELETAL: Extremities no cyanosis, edema 2-3+ pitting with poorly healing wounds NEUROLOGICAL: sedated LINES: NO evidence of infection Assessment & Plan Remarks Sepsis related to Cdiff and Intra abdominal peritonitis. - sp subtotal colectomy and ileostomy SP colon perfocation and intraperitoneal gross contamination ? Cdiff Colitis Noted Cdiff PCR is negative3/3 ? Zinc preparation in perianal care could cause false negative test. Path c/o Cdiff Colitis. - repeat path favouring ischemia RUE severe nec fasc due to MSSA - skin grafting was planned, but cancelled - S/P I and D x 3 - clinically resolved MSSA bacteremia 2/2 RUE infx - resolved E.coli bacteremia on presentation -source is likely gut Immunosuppressed on steroids, s/p splenectomy. PCN allergy, but no probs with Keflex per report. ARF/ DEIRDRE/ATN 2/2 sepsis -stable Patient is stable and clinically improving Sp upper GI bleeding - resolved Persistent and worsening leukocytosis - has new infiltrate, ?new PNA INtermittent fevers Shock, on levophed PLAN: Continue IV cefepime,flagyl IV, micafungin IV Repeat C/S Add Vancomycin Follow CBC Monitor temps Monitor progress Delilah Miranda MD Jan 05, 2016 16:28
[2016-01-05] MEDS ORDERED: VANCOMYCIN INJ 1,000 MG in SODIUM CHLOR 0.9% 250 ML INJ 250 ML IV ONE (17:00)
[2016-01-05 18:48] LABS: BACTERIA, URINE OCC /hpf; BLOOD, URINE SMALL (NEG); GLUCOSE,URINE NEG (NEG); GRANULAR CAST, URINE 4 /lpf; HYALINE CAST, URINE 2 /lpf (RARE); KETONE, URINE NEG (NEG); MUCUS URINE FEW /lpf (OCC); NITRITE,URINE NEG (NEG); PH, URINE 5.5 (5.0-8.5); SQUAMOUS EPITHELIAL CELL URINE 2 /hpf (0-5); URINE COLOR YELLOW (YELLW/STRAW)
[2016-01-05 18:49] LABS: COMMENT (UR) CATH-CULT NOT IND; CULTURE IF INDICATED CATH CULTURE NOT IND
[2016-01-05] MEDS ORDERED: EPINEPHrine HCL (1:10,000) 1 MG/10 ML SYRINGE ONE (22:44)
[2016-01-05] MEDS ORDERED: ATROPINE SULFATE 1 MG/10 ML SYRINGE ONE (22:44)
[2016-01-05] MEDS ORDERED: LIDOCAINE HCL 2% 100 MG/5 ML SYRINGE ONE (22:44)
[2016-01-06] VITALS (22 sets, daily range): BP systolic 88–126; BP diastolic 57–80; PULSE 90–130; RESP 16–46; TEMP 98.2–99.5; O2SAT 99–100
[2016-01-06] MEDS: VASOPRESSIN INJ 40 UNITS in DEXTROSE 5% IN WATER 100ML INJ 98 ML IV SCH ×2 (00:15)
--- NOTE | 2016-01-06 00:16 | RADRPT ---
EXAM DATE/TIME: 01/05/2016 23:15 [facility] COMPARISON: CT THORAX W/O CONTRAST, December 14, 2015, 6:12. INDICATIONS : Short of breath. RADIATION DOSE: 18.28 CTDIvol (mGy) ; Combined studies - Thorax/Abdomen/Pelvis MEDICAL HISTORY : Hypertension. Hernia, hiatal. Hepatitis C. Osteopenia. SURGICAL HISTORY : Splenectomy. Inguinal hernia repair. ENCOUNTER: Initial ACUITY: 1 day PAIN SCALE: Non-responsive LOCATION: Bilateral chest TECHNIQUE: Volumetric scanning of the chest was performed. Using automated exposure control and adjustment of t he mA and/or kV according to patient size, radiation dose was kept as low as reasonably achievable to obtain optimal diagnostic quality images. FINDINGS: LUNGS: Consolidation of the left lower lobe with air bronchograms and some patchy infiltrates in the posteri or left upper lung is similar appearance to December 06, 2015. Previously noted right lower lung infi ltrates with consolidation are smaller. PLEURAE: Bilateral pleural effusions are larger prior examination measuring up to 2.9 cm on the left side and 1.7 cm on the right. MEDIASTINUM: The heart and great vessels demonstrate no acute abnormality. There is no mediastinal or hilar lymph adenopathy. AXILLAE: Within normal limits. No lymphadenopathy. MUSCULOSKELETAL: Multiple bilateral partially healed rib fractures posteriorly. MISCELLANEOUS: Endotracheal tube tube above the gregoria. Right internal Jugular catheter tip in the mid superior jay a cava. CONCLUSION: 1. Persistent left lower lobar consolidation. Improved consolidative infiltrates in the right lower lung. 2. Interval increase size bilateral pleural effusions, left greater than right. Osmar Alegria MD on January 05, 2016 at 23:48 Board Certified Radiologist. This report was verified electronically.
--- NOTE | 2016-01-06 00:22 | RADRPT ---
EXAM DATE/TIME: 01/05/2016 23:15 [facility] COMPARISON: CT ABDOMEN & PELVIS W/O CONTRAST, December 31, 2015, 21:09. INDICATIONS : Diffuse abdominal pain. ORAL CONTRAST: No oral contrast ingested. RADIATION DOSE: 18.28 CTDIvol (mGy) ; Combined studies - Thorax/Abdomen/Pelvis MEDICAL HISTORY : Hypertension. Hepatitis C. Hernia, hiatal.Osteopenia. SURGICAL HISTORY : Splenectomy. Inguinal hernia repair. ENCOUNTER: Initial ACUITY: 1 day PAIN SCALE: Non-responsive LOCATION: Bilateral abdomen. TECHNIQUE: Volumetric scanning of the abdomen and pelvis was performed. Using automated exposure control and ad justment of the mA and/or kV according to patient size, radiation dose was kept as low as reasonably achievable to obtain optimal diagnostic quality images. FINDINGS: Gastrostomy, and jejunal tube and CAPD catheter in low pelvis similar in appearance to prior exam. T here is a focal fluid collection posterior to the stomach which is similar in configuration and appea caleb. There is also some focal fluid density along the left margin of the anterior pararenal space, similar in appearance to prior. There is no focal fluid about the percutaneous drainage catheter le ft upper quadrant. Splenectomy. Residual splenic tissue adjacent to the tail of pancreas stable in size at 4.7 cm. Non obstructing bilateral renal stones stable. No evidence of hydronephrosis. Cortical cyst mid pole ri ght kidney measuring 2.2 cm stable. There is a wispy appearance to the mesentery in the upper midabdomen, similar in appearance to prior exam. There is no free fluid seen in the pelvis. Loops of small bowel are normal. Ileostomy right lower quadrant. Sandoval catheter is present within the nondistended urinary bladder. The ureters are remarkable. Induration of the subcutaneous soft tissues about the left and right hips is similar to prior. Stable multiple healed rib fractures. Persistent left lower lobe consolidation and improved infiltra nancy in the right lower lung. Left femoral screws. CONCLUSION: Overall, the appearance of the CT abdomen/pelvis is very similar to prior examination on 12/31/15. T he mesenteric stranding and focal areas of fluid density in the upper abdomen are similar in appearan ce and size. Osmar Alegria MD on January 06, 2016 at 0:14 Board Certified Radiologist. This report was verified electronically.
[2016-01-06] MEDS: METOPROLOL TARTRATE 5 MG/5 ML VIAL IV PUSH SCH ×6 (02:35→20:00)
[2016-01-06] MEDS: oxyCODONE HCL ORAL CONC 20 MG/ML SYRINGE PO SCH ×6 (02:35→21:00)
[2016-01-06] MEDS: metroNIDAZOLE 500 MG INJ 100 ML IV SCH ×3 (02:36→20:00)
[2016-01-06] MEDS: ACETAMINOPHEN 650 MG/20.3 ML UDC PO SCH ×5 (02:39→23:15)
[2016-01-06] MEDS: FREE WATER G-TUBE SCH ×6 (03:37→20:00)
[2016-01-06] MEDS: CHLORHEXIDINE GLUCONATE 2 % 1 PACK (2 CLOTHS) TOP SCH (03:38)
[2016-01-06] MEDS: CEFEPIME INJ 2,000 MG in SODIUM CHLORIDE 0.9% INJ 100 ML IV SCH ×2 (05:09→17:19)
[2016-01-06] MEDS: INSULIN ASPART SUPPLEMENTAL SCALE SQ SCH ×4 (06:00→18:00)
[2016-01-06 06:43] LABS: BICARBONATE 15.7 MEQ/L (21.0-32.0); POTASSIUM 3.9 MEQ/L (3.5-5.1)
[2016-01-06 07:41] LABS: HEMATOCRIT 22.3 % (39.0-51.0); MEAN CELL VOLUME 92.7 FL (80.0-100.0); MEAN CORPUSCULAR HGB CONC 31.3 % (32.0-36.0); PLATELET COUNT 259 TH/MM3 (150-450); RED CELL DISTRIBUTION WIDTH 19.7 % (11.6-17.2); REVIEW FLAG FINAL; WHITE BLOOD COUNT 27.8 TH/MM3 (4.0-11.0)
[2016-01-06] MEDS: CHLORHEXIDINE 0.12% (ORAL KIT) 15 ML CUP MT SCH ×2 (08:00→22:41)
[2016-01-06] MEDS ORDERED: VANCOMYCIN INJ 850 MG in SODIUM CHLOR 0.9% 250 ML INJ 250 ML IV SCH (08:00)
[2016-01-06] MEDS: PANTOPRAZOLE SODIUM 40 MG VIAL IV PUSH SCH (08:32)
[2016-01-06] MEDS: predniSONE 5 MG/5 ML CUP PO SCH (08:33)
[2016-01-06] MEDS: POVIDONE IODINE 10% OINT 30 GM TUBE TOPICAL SCH (08:46)
--- NOTE | 2016-01-06 08:46 | HHI.CCPN ---
Subjective Remarks/Hospital Course 55-year-old male brought by EMS with altered mental status. He has been confused for 2 days but this morning has been the worst. He has history of chronic opiate medications including methadone and morphine that he takes for pain management and hence they gave him Narcan IV which brought the GCS up to 13. The blood glucose was 74. He has open wounds from his right upper and bilateral lower extremities. He has history of hepatitis C. Last week he was pealing and eating shrimps. Bedside blood sugar was 76 in the ER. He was tachycardic in 1 teens and was intubated in the ED for airway protection. Admitted to ICU with sepsis due to Staph Aureus hand infection and E. Coli bacteriemia. 12/05 Patient remains sedated with Fentanyl and intubated. On Levophed 3 mics, Vasopressin 0.03 mics and Bicarb drip. T:99.8 TF placed on hold OGT to LIWS last night - gastric drainage 525ml overnight. 12/06 Patient is sedated with Fentanyl and intubated, On Levophed 3 mics, off vasopressin. Gastric output 400ml in 24 hrs. KUB abdomen yesterday mildly distended colon otherwise non specific KUB. 12/07 Patient is off sedation remains intubated tolerated CPAP for most day yesterday. Afebrile. on no drips, tolerating tube feeds. 12/08 Patient went to OR yesterday for debridement and irrigation of right forearm and wound VAC placement. Given 2U PRBC and 2u PLT yesterday and currently receiving 1of 2 u additional PRBC. Hgb 7.7, PLT 43 this morning. Patient also started on pressors now on Levophed 10 mics. Vasopressin 0.04 mics. On no sedation. 12/09 Patient remains intubated off pressors, Afebrile. Tolerating tube feeds. Afebrile. 12/10 Patient is sedated with Fentanyl and intubated. Awake and follows commands off sedation. Afebrile. 12/11 Patient had ?SVT overnight given Lopressor 2.5mg IV x1, Remains intubated and sedated with Fentanyl. Afebrile. Tolerating TF. 12/12 Patient spoked fever last night with T: 101.5, sedated with Fentanyl and intubated. 12/13 Patient had an episode of desaturation overnight required increase FIO2/ PEE now on ACV with RR 14, TV 550, PEEP: 12, FIO2 60% with sats 100% CT chest performed overnight showed b/l consolidation and small pleural effusion. Had T: 100.0 last night. 12/14 Tolerating PS 15/CPAP 10 FiO2 40% with rSBI 38, weaning. . Awake and alert , following commands. Hypotensive overnight and levophed restarted up to 12 mcg/ min. Nurse has been weaning throughout the day. Suspected adrenal insufficiency as he was on prednisone as outpatient for gout and has not been on stress dose steroids. Given decadron. 12/15 Transfused 1 unit PRBC for Hgb 7.0 yesterday, 1 unit PRBC for Hgb 6.6 today and now Hgb 8.3. Does not clinically have e/o active GI bleeding and wound vac output nonbloody. Stool 1500 output, C diff negative. No abdominal pain. Remains Awake and alert, remained on CPAP 10/5 last night and is now tolerating CPAP 5/5. 12/16: Extubated yesterday tolerating well. Breathing comfortably. Able to follow commands. UO 1.8 L in 24 hours. Na slightly increased to 153. 12/17: Significantly worse this AM. WBC up to 28 from 16. Hgb 5.2 from 7.9. tachycardic. pale this AM. states he feels tired. Continues on BiPAP. Plan for debridement of his arms today. LIJ CVL does not have any signs of overt infection. 12/18: Blood cell count continues to rise today to 30 from 28. Required 1 unit of blood for hemoglobin of 6.6 which improved to 7.7 this morning. However, patient remains tachycardic in the 120s and significantly pale. CT abdomen and pelvis ordered and pending. Tachypneic with respiratory rate in the 30s. Only small amount of dark tarry stool yesterday with approximately 300 cc of stool output. C. difficile toxin negative 3. After discussion with infectious disease, restart vancomycin, cefepime, Flagyl, micafungin. Horn cultures are pending. Per discussion with GI, will not scope as endoscopy is high risk given his tenuous respiratory status this point. Slightly worse hypernatremia as well as worsening acute kidney injury this morning. 12/19: POD 1 s/p ex-lap, washout for perforated ascending colon with extended right hemicolectomy, primary ileocolic anastamosis, open abdomen, septic shock, acute hypoxic and hypercarbic respiratory failure. Significantly critically ill overnight: required 6L ivf resuscitation, 1 unit prbc, norepinephrine, vasopressin, stress dose hydrocortisone. This morning, remains on high-dose vasopressors. still has large volume ivf requirement. Significant SIRS response. Vent requirements increasing with all this volume resuscitation, PEEP up to 10. He remains critically ill, and although I do believe we have surgical source control, I anticipate he will continue to clinically decline before he starts to make improvements. 12/20: Off pressors. follows commands on sedation holiday. +11L over last 3 days during acute illness, +22L since admission. We are going to have to get some of this volume back before we are able to close him given his severe anasarca. 12/21: Taken back to the OR yesterday afternoon for washout and completion colectomy. Postoperatively was significantly under resuscitated as well as had ongoing active oozing. Patient was coagulopathy. The patient was in distributive and hemorrhagic shock. The patient was given multiple units of blood products overnight. Patient was thrombocytopenic, hypofibrinogenemic, coagulopathic. Given significant volume of blood product resuscitation: 24h blood products: 13 prbc 8 ffp 2 plt 1 10-pack cryo This morning continues to have significant amount of bright red output out of his BEV and wound VAC, approximately 500 cc an hour out of his wound VAC, and approximately 75 an mils every 10 minutes out of a BEV. I discussed with surgery and we will correct his coagulopathy and plan to go back to the OR for exploration early this afternoon. 12/22: Clinically starting to improve hemodynamically. off vasopressors. Net+ 26L. CVP rising to 14. UOP adequate. Hgb 7 this AM. 12/23 Seen postop. Hypertensive, BP improved with additional pain medicine. Remains net positive but urine output excellent 3L in 24 hours. Remains on Lasix gtt. went to OR today status post wound VAC change and partial closure 12/24: Fascia was closed yesterday. Wound Vac in place. Remains sedated. -2L negative balance, but with increasing BUN/creat. Discontinue Bumex infusion, start scheduled Bumex 2 mg IV every 12 with IV albumin. 12/25: Overnight became hypotensive requiring Levophed to be restarted. Hemoglobin dropped to 4.1. Noted to have bloody drainage from G-tube and dorsal ileostomy with black stool output 12/26: s/p EGD yesterday-2 gastric ulcers bleeding, stomach a significant part had decreased discoloration indicating probable ischemia. s/p epi injection and cauterization. Continues to have coffee ground G tube output, black tarry Ileostomy output. Hemoglobin down to 6.4 getting 2 units of PRBC. GI recent recommending intervention radiology consult. 12/27: For trach today. Meds ordered. Hgb decline consistent with recent transfusions and senescent cells. 12/28: Trach clean, dry. Start SBTs. Check prealbumin. Continue TPN. 12/29: Looks in direction of voice. I have not seen more purposeful reactions. Line > 12 days old, replace today. Prealbumin 20 - good response to TPN. 12/30: Remains vented, encephalopathic, puss like drainage from left hand, WBC increased 01/01: no significant changes. continues to remain critically ill with minimal improvements over the last week. abdomen closed. still total body volume overloaded. 01/02: more awake today than yesterday. continues to be critically ill with minimal improvements overall. need to look towards placement. -900 yesterday. 01/03: up in chair yesterday. tolerated short run of SBT 15/5/40%. net euvolemic. wbc downtrending. 01/04: wbc slightly uptrended 33 from 30, more acidotic on BMP (14 from 20). Also spiking fevers to 102.3 despite tylenol. continues on broad spectrum abx. yesterday's cxr had what may be a new LLL infiltrate. today, though, he is following commands and more awake and alert. 01/05: LLL pna clinically and based on bronch. CT c/a/p done last night without any significant intra-abdominal change. small left pleural effusion which appears simple in nature, and LLL consolidation. ID broadened abx. today , wbc downtrending. culture data pending. Hgb 7 this AM. Objective Vital Signs Date Time Temp Pulse Resp B/P Pulse Ox O2 Delivery O2 Flow Rate FiO2 01/06/16 07:52 100 35 01/06/16 06:08 15 01/06/16 06:00 95 01/06/16 04:00 98.7 116/57 01/03/16 08:44 Ventilator Intake and Output 01/05/16 01/05/16 01/06/16 08:00 16:00 00:00 Intake Total 1075 ml 935 ml 1168 ml Output Total 1160 ml 1345 ml 680 ml Balance -85 ml -410 ml 488 ml Result Diagram: 01/06/16 0510 01/06/16 0510 Imaging Last Impressions Chest X-Ray 12/17/15 0600 Signed Impressions: Service Date/Time: Thursday, December 17, 2015 03:25 - CONCLUSION: Persistent left lower lobe consolidation. Osmar Alegria MD Chest CT 12/14/15 0000 Signed Impressions: Service Date/Time: Monday, December 14, 2015 06:12 - CONCLUSION: 1. Cardiomegaly with bilateral consolidation, likely CHF. Pneumonia cannot be excluded. 2. Small right pleural effusion. Wojciech Lockhart MD Abdomen X-Ray 12/06/15 0000 Signed Impressions: Service Date/Time: November 09:53 - CONCLUSION: Nonspecific KUB. Air is seen within a mildly distended colon but contrast is clearly seen in the rectum. Arnaldo Reyes MD Abdomen/Pelvis CT 12/04/15 0000 Signed Impressions: Service Date/Time: Friday, December 04, 2015 16:24 - CONCLUSION: 1. Mildly distended small bowel in the mid and lower abdomen. Contrast is clearly seen extending into the distal small bowel and ascending colon so a complete obstruction is not seen. A transition point is not seen. This pattern likely represents an ileus versus a partial obstruction. 2. Multiple nonobstructing renal stones. 3. Abnormal appearance of the spleen which appears to represent a splenule. It could be correlated if the patient has had either primary splenic removal or splenic injury and this is what is either left of the spleen or a developing splenule. This is likely of no significance. 4. Mild ascites. 5. Increased density within the gallbladder representing either tumefactive sludge or noncalcified stones. 6. Mild bilateral pleural effusions with prominent areas of lower lobe atelectasis or consolidation at the bases bilaterally. 7. Subacute to chronic bilateral rib fractures and multiple compression fractures in the lower thoracic and lumbar spine as described above. The patient does have a prior CT examination from 08/26/2014. All the compression deformities described above are new when compared to that scan. Arnaldo Reyes MD Head CT 12/02/15 1013 Signed Impressions: Service Date/Time: Wednesday, December 02, 2015 11:00 - CONCLUSION: 1. No intracranial abnormality is seen. 2. Air-fluid level in the right maxillary sinus. Arnaldo Reyes MD Objective Remarks GENERAL: Middle-aged male, lying in bed, trached. remains critically ill. HEENT: NCAT. mucous membranes moist. NECK: trach in place. obese neck. difficult to assess JVD. right IJ triple lumen catheter in place, site clean RESPIRATORY: Breath sounds equal bilaterally. coarse crackles b/l. CARDIOVASCULAR: Tachycardic, regular rhythm without murmurs, rubs. GASTROINTESTINAL: Abdomen fascia is closed midline wound vac in place. nontender, nondistended. no guarding. MUSCULOSKELETAL: Generalized anasarca. Multiple open wounds in the lower extremity. RUE - with wound vac in place. L upper extremity dressing in place. NEURO: RASS - 2. CAM+. briskly follows commands this morning. Remains on fentanyl. 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 He has made improvements in his shock state. He is now severely volume overloaded given the large volume resuscitation he required for his shock. He also continues to have an DEIRDRE. We've made slight improvements in hemodynamics. However we are still grossly anasarca and volume overloaded. Now with new LLL VAP. Neuro: Acute encephalopathy secondary to sepsis Acute pain secondary to multiple soft tissue infections Acute post-surgical pain Chronic pain - Versed off, fentanyl to wean as tolerated. We are down to 50mcg/hr today, we will try to wean this off today and use his intermittent prn's. - fentanyl patch 75mcg/h q3d for long acting pain control. - liquid tylenol 650mg per tube q6h. - Dilaudid 2mg iv q4h prn for breakthrough pain. - ketamine drip d/cd 12/22. - oxycodone 20mg per tube q4h scheduled to help wean off fentanyl infusion. -- he is a little more somnolent today. we will start with aggressive day/night orientation and sleep hygiene. he may need some background atypical antipsychotic to help if this is early delirium. Respiratory Acute respiratory failure-extubated 12/16/15, reintubated for surgery 12/18 Acute hypoxic and hypercarbic respiratory failure Acute healthcare associated pneumonia- resolved NIGEL on home CPAP - Extubated 12/15 - reintubated for emergent ex-lap 12/18. - Tracheostomy 12/27 - Vent bundle. Head of bed at 30 degrees. Nebs q6h and q2h prn. - daily spontaneous breathing trials. slow progress. today 30/06/40%, will again try to wean pressure support. - will get OOB to stretcher chair today. CV Hemorrhagic shock- resolved Septic Shock- resolved Volume overload - keep map > 65 mmHg. - Cortisol level 14 on 12/14 - Prednisone 10mg daily, will begin slow taper. - Echo 12/07 EF 65-70%, grade I diastolic dysfunction Renal: DEIRDRE Hypernatremia Acute intravascular and total body volume overload - unable to aggressively diurese given tenuous renal function. - Prerenal azotemia persists while attempting to mobilize excess edema fluid. - free H2O via Gut 400 q4h, slowly improving. FEN/GI Acute GIB, hemorrhagic shock Perforated right colon with colitis s/p ex-lap, extended right hemicolectomy with primary ileocolic anastamosis, washout, open abdomen (12/18) Acute protein calorie malnutrition- severe Hypokalemia Total body volume overload Intravascular hypervolemia - PPI i.v. BID - EGD 12/26/15 showed 2 large gastric ulcers with active bleeding status post epinephrine infusion and cauterization - ICU electrolyte protocol - Daily CMP - OR on 12/24 with Removal of VAC, washout, pancreatic drain and pelvic drain placement, gastrostomy, feeding jejunostomy and closure of abdomen with application of VAC device in the subcutaneous tissue. - TFs via jejunostomy at goal - off TPN 01/01. - on full TF at goal. Heme: Acute Anemia secondary to acute blood loss Thrombocytopenia Hypofibrinogenemia secondary to consumption and acute blood loss Coagulopathy secondary to consumption and acute blood loss --monitor CBC, qday H/H. --Hep PLT ab negative on 12/03 --Platelets FFP fibrinogen as needed --Trend Hgb - Ferrous Sulfate TID - Hgb 7 today, will give 1 unit prbc with bumex 2mg iv x 1. ID Severe sepsis Necrotizing Fascitis - MSSA on wound culture 12/07. Ecoli bacteremia 12/01 MSSA bacteremia 12/05. Cleared on f/u blood culture 12/07, 12/12. Leukocytosis Sepsis of Intra-abdominal origin. C. difficile toxic megacolon --Debridement 12/01 p.m at bedside by Dr Pedro and Dr. Hartmann --R hand, forearm and olecranon bursa I and D and Wound vac 12/07 Dr Chavez. -- IV cefepime,flagyl IV, micafungin. PO/intracolonic treatment for C.diff is contraindicated per --12/17 blood cultures: NGTD 12/17 central line culture: NGTD 12/17 urine cultures: NGTD 12/17 sputum cultures: NGTD C. difficile toxin 12/17: Negative (3rd negative toxin screen) 01/04: horn culture, bronch with BAL, 01/04: CT chest/abd/pelvis without contrast: LLL consolidation, otherwise unchanged. 01/04: clinically LLL VAP. --ID Dr. Becerra Endocrine: Hyperglycemia of Critical Illness Diabetes - off Insulin drip - Moderate SSI - Levemir BID on hold. - Prednisone 10mg po daily. slow taper: 7.5mg daily x 7 days, then 5mg daily x 7 days, then off. Prophylaxis: GI Prophylaxis: -- Protonix IV BID DVT Prophylaxis: - SCDs - will slowly start SQH, 5000 q12h. Lines: -- Sandoval -- right axillary arterial line 01/04 -- right IJ TLC 01/04 Dispo: -- He remains in the [facility] and severely critically ill, ventilator weaning failure , ongoing sepsis. Critical Care: The total critical care time was 40 minutes. Time to perform other separately billable procedures was not included in the critical care time. Problem Qualifiers (1) Respiratory failure: Qualified Code: J96.00 - Acute respiratory failure, unspecified whether with hypoxia or hypercapnia (2) Altered mental status: Qualified Code: R41.0 - Delirium (3) Sepsis: Qualified Code: A41.9 - Sepsis, due to unspecified organism Jeyson Fernández MD Jan 06, 2016 08:46
[2016-01-06] MEDS: NEOMYCIN/POLYMYXIN/BACITRACIN OINT 15 GM TUBE TOPICAL SCH ×2 (08:47→21:00)
[2016-01-06] MEDS ORDERED: BUMETANIDE INJ 1 MG/4 ML VIAL IV PUSH ONE (09:00)
[2016-01-06] MEDS ORDERED: SODIUM CHLOR 0.9% 250 ML INJ 250 ML IV ONE (09:00)
[2016-01-06] MEDS ORDERED: HEPARIN SODIUM - SQ 10,000 UNITS/ML VIAL SQ SCH (10:00)
[2016-01-06] MEDS: HYDROmorphone HCL PF 2 MG/ML VIAL IV PUSH PRN ×3 (11:25→17:46)
[2016-01-06] MEDS: REMOVE OLD PATCH TD SCH (11:31)
[2016-01-06] MEDS: fentaNYL 75 MCG/HR PATCH TD SCH (11:31)
--- NOTE | 2016-01-06 13:26 | HHI.IDPN ---
Subjective Subjective Remarks ID COVERAGE Notes reviewed D/W RN Temps better BP ok Up in cradiac chair Lamberto bronch Has new central line and Johanna WBC down to 27K Has been treated for RUE infection, has had debridement and chan s wound vac in place. During this hospiatlization developed surgical abdomen and require exp lap, subtotal colectomy, and reop for control of bleeding. Path report of colon suggestive of PMC. Has been vent dependent and under went trach 12/27 Has multiple tubes in the abdomen Antibiotics cefepime IV, IV flagyl micafungin IV IV Vancomycin Lines RSC TLC Past Medical History RA HCV sp splenectomy Allergies: Coded Allergies: Compazine (Verified Allergy, Severe, VOMITING, RASH, 08/26/14) SLURRED SPEECH, MIGRAINES Demerol (Verified Allergy, Severe, VOMITING, 08/26/14) Levaquin (Verified Allergy, Severe, 08/26/14) Penicillin (Verified Allergy, Severe, Rash, 08/26/14) Phenergan (Verified Allergy, Severe, VOMITING, 08/26/14) Uncoded Allergies: ANTI-CONVULSIVES (Allergy, Severe, MIGRAINES, SLURRED SPEECH,, 01/23/14) Objective . Vital Signs Date Time Temp Pulse Resp B/P Pulse Ox O2 Delivery O2 Flow Rate FiO2 01/06/16 12:00 35 01/06/16 11:36 100 35 01/06/16 08:00 35 01/06/16 07:52 100 35 01/06/16 06:08 15 01/06/16 06:08 15 01/06/16 06:00 95 01/06/16 04:38 100 35 01/06/16 04:00 35 01/06/16 04:00 90 01/06/16 04:00 98.7 90 24 116/57 100 01/06/16 02:00 104 01/06/16 02:00 104 01/06/16 00:54 100 35 01/06/16 00:00 35 01/06/16 00:00 94 01/06/16 00:00 98.7 94 20 116/57 100 01/05/16 22:00 89 01/05/16 21:55 20 01/05/16 20:23 100 35 01/05/16 20:00 35 01/05/16 20:00 106 01/05/16 20:00 98.8 65 17 136/69 100 01/05/16 18:00 01/05/16 18:00 95 01/05/16 16:00 76 01/05/16 16:00 99.5 76 22 152/86 100 01/05/16 15:45 100 35 01/05/16 14:00 92 01/05/16 14:00 01/05/16 01/05/16 01/06/16 15:00 23:00 07:00 Intake Total 935 ml 1168 ml 1134 ml Output Total 1345 ml 680 ml 1020 ml Balance -410 ml 488 ml 114 ml IV Total 478 ml 588 ml 343 ml Tube Feeding 337 ml 220 ml 591 ml Other 120 ml 360 ml 200 ml Output Urine Total 600 ml 400 ml 400 ml Stool Total 300 ml 100 ml 200 ml Gastric Drainage Total 300 ml 150 ml Drainage Total 145 ml 180 ml 270 ml . Laboratory Tests Test 01/05/16 01/06/16 03:35 05:10 White Blood Count 33.9 TH/MM3 27.8 TH/MM3 Red Blood Count 2.74 MIL/MM3 2.40 MIL/MM3 Hemoglobin 7.9 GM/DL 7.0 GM/DL Hematocrit 25.4 % 22.3 % Mean Corpuscular Volume 92.6 FL 92.7 FL Mean Corpuscular Hemoglobin 28.7 PG 29.0 PG Mean Corpuscular Hemoglobin 31.0 % 31.3 % Concent Red Cell Distribution Width 20.5 % 19.7 % Platelet Count 291 TH/MM3 259 TH/MM3 Mean Platelet Volume 10.2 FL 10.1 FL Laboratory Tests Test 01/05/16 01/06/16 03:35 05:10 Sodium Level 150 MEQ/L 147 MEQ/L Potassium Level 4.0 MEQ/L 3.9 MEQ/L Chloride Level 123 MEQ/L 121 MEQ/L Carbon Dioxide Level 15.0 MEQ/L 15.7 MEQ/L Anion Gap 12 MEQ/L 10 MEQ/L Blood Urea Nitrogen 55 MG/DL 54 MG/DL Creatinine 1.31 MG/DL 1.45 MG/DL Estimat Glomerular Filtration 57 ML/MIN 51 ML/MIN Rate Random Glucose 130 MG/DL 123 MG/DL Calcium Level 7.9 MG/DL 7.8 MG/DL Microbiology Date/Time Procedure Status Source Growth 01/05/16 12:58 Aerobic Blood Culture Received Blood Peripheral Pending 01/05/16 12:58 Anaerobic Blood Culture Received Blood Peripheral Pending 01/05/16 14:00 Gram Stain - Final Resulted Bronchial Washings Left Upper Lobe 01/05/16 14:00 Bronchial Culture Resulted Bronchial Washings Left Upper Lobe Pending 01/05/16 14:00 Fungal Smear - Final Resulted Bronchial Washings Left Lower Lobe NO FUNGAL ELEMENTS SEEN. 01/05/16 14:00 Fungal Culture Resulted Bronchial Washings Left Lower Lobe Pending 01/05/16 14:50 Aerobic Blood Culture - Preliminary Resulted Blood Peripheral NO GROWTH IN 1 DAY 01/05/16 14:50 Anaerobic Blood Culture - Preliminary Resulted Blood Peripheral NO GROWTH IN 1 DAY 01/05/16 14:50 Aerobic Blood Culture - Preliminary Resulted Blood Peripheral NO GROWTH IN 1 DAY 01/05/16 14:50 Anaerobic Blood Culture - Preliminary Resulted Blood Peripheral NO GROWTH IN 1 DAY Imaging Last Impressions Chest X-Ray 01/04/16 1200 Signed Impressions: Service Date/Time: Monday, January 04, 2016 12:33 - CONCLUSION: Stable chest , consolidation and small pleural effusion on the left. Raudel Mckinney MD FACR Abdomen/Pelvis CT 12/31/15 0000 Signed Impressions: Service Date/Time: Thursday, December 31, 2015 21:09 - CONCLUSION: 1. There is stranding of the mesentery particularly adjacent to several loops of jejunum within the left abdomen. There is no abscess, obstruction, or perforation. 2. Near complete colectomy with right lower quadrant ileostomy. 3. Bilateral nonobstructing renal calculi. 4. Bilateral pleural effusions and bibasilar infiltrates. Osmar Chavez Jr., MD Celiac/Hepatic Arteriogram 12/27/15 0000 Signed Impressions: Service Date/Time: December 13:41 - CONCLUSION: 1. No active GI bleed identified. Robert Mckinney MD Abdomen X-Ray 12/18/15 0000 Signed Impressions: Service Date/Time: Friday, December 18, 2015 16:05 - CONCLUSION: Feeding tube tip is at the gastric antrum. Arnaldo Elias MD Chest CT 12/14/15 0000 Signed Impressions: Service Date/Time: Monday, December 14, 2015 06:12 - CONCLUSION: 1. Cardiomegaly with bilateral consolidation, likely CHF. Pneumonia cannot be excluded. 2. Small right pleural effusion. Wojciech F. Tocci, MD Head CT 12/02/15 1013 Signed Impressions: Service Date/Time: Wednesday, December 02, 2015 11:00 - CONCLUSION: 1. No intracranial abnormality is seen. 2. Air-fluid level in the right maxillary sinus. Arnaldo Reyes MD Physical Exam GENERAL: On vent , up in cardiac chair. Awake and following commands SKIN: + minimal jaundice. Anasarca HEENT: no icterus, nno nasal discharge NECK: Trach in place CARDIOVASCULAR: systolic murmur in base of heart RESPIRATORY/CHEST: scattered rhonchi on auscultation. Breath sounds equal bilaterally. GASTROINTESTINAL: Abdomen with VAC in place serosang dc and stoma in place with dark brown soft stool BEV in place with serous drainage GENITOURINARY: Sandoval catheter in place with clear light yellow urine with sediment MUSCULOSKELETAL: Extremities no cyanosis, edema 2-3+ pitting with poorly healing wounds NEUROLOGICAL: awake, and following commands LINES: NO evidence of infection Assessment & Plan Remarks Sepsis related to Cdiff and Intra abdominal peritonitis. - sp subtotal colectomy and ileostomy SP colon perfocation and intraperitoneal gross contamination ? Cdiff Colitis Noted Cdiff PCR is negative3/3 ? Zinc preparation in perianal care could cause false negative test. Path c/o Cdiff Colitis. - repeat path favouring ischemia RUE severe nec fasc due to MSSA - skin grafting was planned, but cancelled - S/P I and D x 3 - clinically resolved MSSA bacteremia 2/2 RUE infx - resolved E.coli bacteremia on presentation -source is likely gut Immunosuppressed on steroids, s/p splenectomy. PCN allergy, but no probs with Keflex per report. ARF/ DEIRDRE/ATN 2/2 sepsis -stable Patient is stable and clinically improving Sp upper GI bleeding - resolved Persistent and worsening leukocytosis - has new infiltrate, ?new PNA INtermittent fevers Shock, on levophed PLAN: Continue IV cefepime,flagyl IV, micafungin IV Repeat C/S Continue Vancomycin Follow CBC Monitor temps Monitor progress D/W Delilah Tomlin MD Jan 06, 2016 13:26
[2016-01-06] MEDS: MICAFUNGIN INJ 150 MG in SODIUM CHLORIDE 0.9% INJ 100 ML IV SCH (14:54)
[2016-01-06] MEDS ORDERED: SODIUM CHLOR 0.9% 1000 ML INJ 1,000 ML IV ONE ×2 (19:15→23:45)
[2016-01-06 19:31] LABS: AUTOMATED NEUTROPHIL # 24.3 TH/MM3 (1.8-7.7); BASOPHIL # 0.1 TH/MM3 (0-0.2); BASOPHIL % 0.4 % (0.0-2.0); EOSINOPHIL # 0.1 TH/MM3 (0-0.4); EOSINOPHIL % 0.2 % (0.0-4.0); HEMO FLAGS DIFF FINAL; LYMPH % 6.1 % (9.0-44.0); LYMPHOCYTE # 1.7 TH/MM3 (1.0-4.8); MEAN CELL VOLUME 90.7 FL (80.0-100.0); MEAN CORPUSCULAR HEMOGLOBIN 28.4 PG (27.0-34.0); MEAN CORPUSCULAR HGB CONC 31.3 % (32.0-36.0); MONO % 7.1 % (0.0-8.0); NEUT % 86.2 % (16.0-70.0); PLATELET COUNT 250 TH/MM3 (150-450); RED BLOOD COUNT 2.53 MIL/MM3 (4.50-5.90); RED CELL DISTRIBUTION WIDTH 19.3 % (11.6-17.2); WHITE BLOOD COUNT 28.1 TH/MM3 (4.0-11.0)
[2016-01-06] MEDS ORDERED: TERBUTALINE INJ 1 MG/ML AMP SQ PRN ×2 (19:45→23:45)
[2016-01-06] MEDS ORDERED: FUROSEMIDE 20 MG/2 ML VIAL IV PUSH SCH (20:00)
--- NOTE | 2016-01-06 20:10 | HHI.PR ---
Subjective Subjective Notes CT last night a/p reviewed and unchanged, s/p bronch for PNA, plastics to eval left arm today Objective Vitals/I&O Vital Signs Date Time Temp Pulse Resp B/P Pulse Ox O2 Delivery O2 Flow Rate FiO2 01/06/16 19:37 99 50 01/06/16 18:00 91 01/06/16 16:00 99.0 16 116/72 01/03/16 08:44 Ventilator Labs Laboratory Tests Test 01/06/16 01/06/16 01/06/16 01/06/16 05:10 10:55 19:06 19:47 White Blood Count 27.8 28.1 Red Blood Count 2.40 2.53 Hemoglobin 7.0 7.2 Hematocrit 22.3 23.0 Mean Corpuscular Volume 92.7 90.7 Mean Corpuscular Hemoglobin 29.0 28.4 Mean Corpuscular Hemoglobin 31.3 31.3 Concent Red Cell Distribution Width 19.7 19.3 Platelet Count 259 250 Mean Platelet Volume 10.1 10.0 Sodium Level 147 Potassium Level 3.9 Chloride Level 121 Carbon Dioxide Level 15.7 Anion Gap 10 Blood Urea Nitrogen 54 Creatinine 1.45 Estimat Glomerular Filtration 51 Rate Random Glucose 123 Calcium Level 7.8 Blood Type B POSITIVE Antibody Screen NEGATIVE Crossmatch Leukocyte-Reduced Leukocyte-Reduced Red Blood Red Blood Cells Cells Blood Bank Comment Neutrophils (%) (Auto) 86.2 Lymphocytes (%) (Auto) 6.1 Monocytes (%) (Auto) 7.1 Eosinophils (%) (Auto) 0.2 Basophils (%) (Auto) 0.4 Neutrophils # (Auto) 24.3 Lymphocytes # (Auto) 1.7 Monocytes # (Auto) 2.0 Eosinophils # (Auto) 0.1 Basophils # (Auto) 0.1 CBC Comment DIFF FINAL Differential Comment Date/Time Procedure Status Source Growth 01/05/16 14:50 Aerobic Blood Culture - Preliminary Resulted Blood Peripheral NO GROWTH IN 1 DAY 01/05/16 14:50 Anaerobic Blood Culture - Preliminary Resulted Blood Peripheral NO GROWTH IN 1 DAY 01/05/16 14:00 Gram Stain - Final Resulted Bronchial Washings Left Upper Lobe 01/05/16 14:00 Bronchial Culture Resulted Bronchial Washings Left Upper Lobe Pending 01/05/16 14:00 Fungal Smear - Final Resulted Bronchial Washings Left Lower Lobe NO FUNGAL ELEMENTS SEEN. 01/05/16 14:00 Fungal Culture Resulted Bronchial Washings Left Lower Lobe Pending 01/05/16 12:58 Aerobic Blood Culture Received Blood Peripheral Pending 01/05/16 12:58 Anaerobic Blood Culture Received Blood Peripheral Pending Radiology Last Impressions Chest X-Ray 12/28/15 0000 Signed Impressions: Service Date/Time: Monday, December 28, 2015 14:23 - CONCLUSION: Large left pleural effusion and left lung base consolidation. Freddy Connor MD Abdomen/Pelvis CT 12/19/15 0000 Signed Impressions: Service Date/Time: Saturday, December 19, 2015 10:57 - CONCLUSION: 1. Adjacent volume pneumoperitoneum is observed consistent with perforation of a hollow viscus. This is presumably colonic in origin due to the diffuse inflammatory process involving the colon. I do not clearly identify the source of the pneumoperitoneum however. There is mild dilatation of the small bowel likely an ileus in nature. A significant volume of ascitic fluid is noted. 2. Bibasilar atelectasis and bilateral pleural effusions. 3. Small pericardial effusion. 4. Small bilateral nonobstructing renal calculi. 5. I spoke with Dr. Sanchez concerning the findings. Osmar Chavez Jr., MD Abdomen X-Ray 12/18/15 0000 Signed Impressions: Service Date/Time: Friday, December 18, 2015 16:05 - CONCLUSION: Feeding tube tip is at the gastric antrum. Arnaldo Elias MD Chest CT 12/14/15 0000 Signed Impressions: Service Date/Time: Monday, December 14, 2015 06:12 - CONCLUSION: 1. Cardiomegaly with bilateral consolidation, likely CHF. Pneumonia cannot be excluded. 2. Small right pleural effusion. Wojciech Lockhart MD Head CT 12/02/15 1013 Signed Impressions: Service Date/Time: Wednesday, December 02, 2015 11:00 - CONCLUSION: 1. No intracranial abnormality is seen. 2. Air-fluid level in the right maxillary sinus. Arnaldo Reyes MD Cardiovascular: Regular Lungs: Upper airway course sound Abdomen: Non-distended, Other (ostomy with stool in bag) Extremities: Other (vac and dressings to ext) A/P Problem List: (1) Dependent on ventilator (2) Open wound of abdomen (3) Ileostomy in place (4) Jejunostomy tube present (5) S/P total colectomy (6) Acute colitis (7) Gastrostomy tube in place Assessment and Plan POD #4/6 for colon resection and takeback, now stable. WBC's remain elevated Plan: ISC management await plastics. trend labs abx for pna Problem Qualifiers (1) Open wound of abdomen: Qualified Code: S31.109D - Open wound of abdomen, subsequent encounter Bebo Verdin MD Jan 06, 2016 20:10
[2016-01-06 20:59] LABS: BLOOD GAS BASE EXCESS -16.6 mmol/L (-2-2); BLOOD GAS CARBOXYHEMOGLOBIN 1.2 % (0-4); BLOOD GAS HCO3 9 mmol/L (22-26); BLOOD GAS METHEMOGLOBIN 0.7 % (0-2); BLOOD GAS O2 HGB SATURATION 96 % (90-100); BLOOD GAS OXYGEN CONTENT 11.8 Vol % (12.0-20.0); BLOOD GAS PCO2 22 mmHg (38-42); BLOOD GAS PO2 103 mmHg (61-120); BLOOD GAS TOTAL HGB 8.6 G/DL (12.0-16.0); TEMP CORR TO 98.6
[2016-01-06 21:00] LABS: CRITICAL VALUE YES; FIO2 50 %; OXYGEN DEVICE VENTILATOR; VENT SETTINGS AC/20/500/PEEP5
[2016-01-06] MEDS: VANCOMYCIN INJ 1,250 MG in SODIUM CHLOR 0.9% 250 ML INJ 250 ML IV SCH (21:00)
[2016-01-06 21:01] LABS: DRAW SITE ALINE; STAT YES
--- NOTE | 2016-01-06 21:09 | RADRPT ---
EXAM DATE/TIME: 01/06/2016 19:46 [facility] COMPARISON: CHEST SINGLE AP, January 05, 2016, 15:06. INDICATIONS : Shortness of breath, possible pulmonary disease. MEDICAL HISTORY : Hypertension. Hepatitis C. Hiatal hernia SURGICAL HISTORY : Splenectomy. Inguinal hernia repair. ENCOUNTER: Subsequent ACUITY: 2 months PAIN SCORE: Non-responsive. LOCATION: Bilateral chest FINDINGS: Tracheostomy in satisfactory position. Right central line in superior vena cava. Mild bibasal airspac e disease. No pneumothorax or significant effusion. CONCLUSION: 1. Basilar airspace disease improved from January 04. Tracheostomy and right central line in satisfa ctory position. Nomi Falcon MD on January 06, 2016 at 21:06 Board Certified Radiologist. This report was verified electronically.
[2016-01-06] MEDS ORDERED: PANTOPRAZOLE INJ 80 MG in SODIUM CHLORIDE 0.9% INJ 35 ML IV ONE (21:15)
[2016-01-06] MEDS ORDERED: SODIUM BICARBONATE 8.4% INJ 50 ML ONE (21:28)
[2016-01-06] MEDS ORDERED: SODIUM BICARBONATE 8.4% INJ 50 MEQ/50 ML SYR IV PUSH ONE ×2 (21:30→23:45)
[2016-01-06 21:39] LABS: BICARBONATE 11.6 MEQ/L (21.0-32.0); POTASSIUM 3.9 MEQ/L (3.5-5.1)
[2016-01-06 22:07] LABS: APTT (PATIENT) 36.6 SEC (24.3-30.1); INTERNATIONAL NORMALIZED RATIO 1.3 RATIO; PROTHROMBIN TIME - PATIENT 14.4 SEC (9.8-11.6)
[2016-01-06] MEDS: SODIUM BICARBONATE 8.4% INJ 150 MEQ in WATER STERILE FOR INJ 850 ML IV SCH (22:20)
[2016-01-06] MEDS: PANTOPRAZOLE INJ 80 MG in SODIUM CHLORIDE 0.9% INJ 100 ML IV SCH (22:24)
[2016-01-06] MEDS: PHENYLEPHRINE INJ 40 MG in DEXTROSE 5% IN WATE 500 ML INJ 496 ML IV SCH ×2 (22:25)
[2016-01-06] MEDS ORDERED: PHYTONADIONE INJ 10 MG in SODIUM CHLORIDE 0.9% INJ 50 ML IV ONE (22:30)
--- NOTE | 2016-01-06 22:34 | RADRPT ---
EXAM DATE/TIME: 01/06/2016 22:07 [facility] COMPARISON: CT ABDOMEN & PELVIS W/O CONTRAST, January 05, 2016, 23:15. INDICATIONS : Follow up abdominal pain; patient's condition is declining. ORAL CONTRAST: No oral contrast ingested. RADIATION DOSE: 18.40 CTDIvol (mGy) MEDICAL HISTORY : Hypertension. Hernia, hiatal. Hepatitis C.Osteopenia SURGICAL HISTORY : Inguinal hernia repair. Splenectomy. ENCOUNTER: Subsequent ACUITY: 1 week PAIN SCALE: Non-responsive LOCATION: abdomen TECHNIQUE: Volumetric scanning of the abdomen and pelvis was performed. Using automated exposure control and ad justment of the mA and/or kV according to patient size, radiation dose was kept as low as reasonably achievable to obtain optimal diagnostic quality images. FINDINGS: Comparison is January 04. Bilateral effusions remain, left greater than right with basilar atelectas is and healing bilateral lower rib fractures. Within the left upper quadrant marked abnormality has developed in the gastric region. There are conc entric areas of increased and decreased density with multiple locules of air. Gastrostomy remains pre sent. I suspect there has been extensive hemorrhage into the gastric wall with probable gastric pneum atosis. This could be related to devascularization of the stomach. A drain remains in the left upper quadrant. Residual splenule noted with previous splenectomy. Nonobstructing bilateral renal calcifica tions and small cysts are stable. No calcified gallstones. No acute findings in the liver. Feeding je junostomy tube again noted. There is also a drain still present in the pelvis. There is diffuse anasa rca. Previous screw fixation proximal left femur. Small amount complex free fluid in the pelvis. Ther e is a right lower quadrant ostomy. CONCLUSION: 1. Over the last day there is development of a large mass in the left upper quadrant measuring up to 18 x 13 cm which appears to be associated with the stomach. The mass is characterized by somewhat con centric areas of decreased and increased attenuation with multiple locules of air. Primary differenti al diagnosis is hemorrhage into the gastric wall with gastric pneumatosis and possibly gastric ischem ia. Gastrostomy is again noted anteriorly. 2. Remainder the exam is relatively stable with drainage tube left upper quadrant, splenectomy, bilat eral effusions, feeding jejunostomy and drain within the pelvis. There is also diffuse anasarca and n onobstructing renal calculi. Nomi Falcon MD on January 06, 2016 at 22:22 Board Certified Radiologist. This report was verified electronically.
[2016-01-06] MEDS ORDERED: ALTEPLASE RECOMBINANT 2 MG VIAL IV ONE ×3 (23:30)
[2016-01-06] MEDS ORDERED: NOREPINEPHRINE-DEXTROSE DRIP 250 ML IV SCH (23:45)
[2016-01-07] VITALS (16 sets, daily range): BP systolic 86–154; BP diastolic 56–96; PULSE 72–114; RESP 24–26; TEMP 93.9–99; O2SAT 97–100
[2016-01-07] MEDS ORDERED: BUPIVACAINE/EPINEPHRINE 0.5% PF 30 ML VIAL ONE (00:31)
[2016-01-07] MEDS ORDERED: GELFOAM SIZE 100 ONE (00:31)
[2016-01-07] MEDS ORDERED: THROMBIN (TOPICAL) 5,000 UNIT VIAL ONE (00:31)
[2016-01-07] MEDS ORDERED: HEPARIN SODIUM - IV 10,000 UNITS/10 ML VIAL ONE (00:31)
[2016-01-07] MEDS: oxyCODONE HCL ORAL CONC 20 MG/ML SYRINGE PO SCH ×6 (01:00→20:18)
[2016-01-07] MEDS ORDERED: EPINEPHrine HCL (1:10,000) 1 MG/10 ML SYRINGE ONE (01:18)
[2016-01-07] MEDS ORDERED: ATROPINE SULFATE 1 MG/10 ML SYRINGE ONE (01:18)
[2016-01-07] MEDS ORDERED: LIDOCAINE HCL 2% 100 MG/5 ML SYRINGE ONE (01:19)
[2016-01-07 02:14] LABS: HEMATOCRIT 21.5 % (39.0-51.0); REVIEW FLAG FINAL
[2016-01-07 03:03] LABS: BLOOD GAS BASE EXCESS -9.2 mmol/L (-2-2); BLOOD GAS CARBOXYHEMOGLOBIN 1.4 % (0-4); BLOOD GAS HCO3 16 mmol/L (22-26); BLOOD GAS METHEMOGLOBIN 1.1 % (0-2); BLOOD GAS O2 HGB SATURATION 97 % (90-100); BLOOD GAS OXYGEN CONTENT 11.7 Vol % (12.0-20.0); BLOOD GAS PCO2 34 mmHg (38-42); BLOOD GAS PO2 216 mmHg (61-120); BLOOD GAS TOTAL HGB 8.2 G/DL (12.0-16.0); CRITICAL VALUE YES; FIO2 50 %; STAT YES; TEMP CORR TO 98.6
--- NOTE | 2016-01-07 03:18 | HHI.PR ---
Immediate Post Op Note Procedure Date: Jan 07, 2016 Pre Op Diagnosis: GI bleed, hemorrhagic shock Post Op Diagnosis: bleeding gastric ulcer Surgeon: Bebo Verdin MD Loan Documents Closer(s): see or sheet Procedure: ex lap, MAKENZIE, Gastrotomy ligation of gastric ulcer, VAC Findings: Bleeding ulcer anterior gastric wall Complications: none Specimen(s) removed: none Anesthesia: General Drains: Other (vac) IVF (100) Patient to: ISC Patient Condition: Critical Bebo Verdin MD Jan 07, 2016 03:18
[2016-01-07] MEDS: FREE WATER G-TUBE SCH ×6 (03:58→20:18)
[2016-01-07] MEDS: CHLORHEXIDINE GLUCONATE 2 % 1 PACK (2 CLOTHS) TOP SCH (03:59)
[2016-01-07] MEDS: METOPROLOL TARTRATE 5 MG/5 ML VIAL IV PUSH SCH ×6 (03:59→20:00)
[2016-01-07 04:08] LABS: BLOOD GAS BASE EXCESS -8.7 mmol/L (-2-2); BLOOD GAS CARBOXYHEMOGLOBIN 1.8 % (0-4); BLOOD GAS HCO3 16 mmol/L (22-26); BLOOD GAS METHEMOGLOBIN 1.2 % (0-2); BLOOD GAS O2 HGB SATURATION 96 % (90-100); BLOOD GAS OXYGEN CONTENT 8.9 Vol % (12.0-20.0); BLOOD GAS PCO2 30 mmHg (38-42); BLOOD GAS PO2 130 mmHg (61-120); BLOOD GAS TOTAL HGB 6.4 G/DL (12.0-16.0); TEMP CORR TO 98.6
[2016-01-07 04:09] LABS: CRITICAL VALUE YES; DRAW SITE ALINE; FIO2 70 %; OXYGEN DEVICE VENTILATOR; STAT YES; VENT SETTINGS AC/24/500/PEEP5
[2016-01-07] MEDS: SODIUM BICARBONATE 8.4% INJ 150 MEQ in WATER STERILE FOR INJ 850 ML IV SCH ×3 (04:10→18:35)
[2016-01-07 04:26] LABS: MEAN CELL VOLUME 87.4 FL (80.0-100.0); MEAN CORPUSCULAR HEMOGLOBIN 29.4 PG (27.0-34.0); MEAN CORPUSCULAR HGB CONC 33.7 % (32.0-36.0); PLATELET COUNT 54 TH/MM3 (150-450); WHITE BLOOD COUNT 27.7 TH/MM3 (4.0-11.0)
[2016-01-07] MEDS ORDERED: SODIUM CHLOR 0.9% 1000 ML INJ 1,000 ML IV ONE (04:30)
[2016-01-07 04:33] LABS: REVIEW FLAG FINAL
[2016-01-07 04:35] LABS: HEMATOCRIT 19.2 % (39.0-51.0)
--- NOTE | 2016-01-07 05:10 | RADRPT ---
EXAM DATE/TIME: 01/07/2016 04:23 [facility] COMPARISON: CHEST SINGLE AP, January 06, 2016, 19:46. INDICATIONS : Pt having shortness of breath. MEDICAL HISTORY : Hypertension. Hepatitis C. Hiatal hernia. SURGICAL HISTORY : Splenectomy. Inguinal hernia repair. ENCOUNTER: Subsequent ACUITY: 2 months PAIN SCORE: Non-responsive. LOCATION: Bilateral chest FINDINGS: The tracheostomy tube, NG tube and right internal jugular central line are well placed. The heart siz e is normal. There is increased density at the left mid and lower lung. The right lung is clear. CONCLUSION: Worsening consolidation or atelectasis at the left mid and lower lung. Some degree of left effusion m ay also be contributing to this. Arnaldo Reyes MD on January 07, 2016 at 5:07 Board Certified Radiologist. This report was verified electronically.
[2016-01-07 05:13] LABS: BICARBONATE 19.6 MEQ/L (21.0-32.0)
[2016-01-07] MEDS: ACETAMINOPHEN 650 MG/20.3 ML UDC PO SCH ×4 (05:15→23:15)
[2016-01-07 05:40] LABS: CALCIUM-PROTEIN CORRECTED 8.1 MG/DL (8.5-10.1)
[2016-01-07] MEDS: INSULIN ASPART SUPPLEMENTAL SCALE SQ SCH ×4 (06:00→18:00)
[2016-01-07 06:55] LABS: INTERNATIONAL NORMALIZED RATIO 1.4 RATIO; PROTHROMBIN TIME - PATIENT 15.3 SEC (9.8-11.6)
[2016-01-07 07:03] LABS: HEMATOCRIT 33.7 % (39.0-51.0); MEAN CELL VOLUME 84.7 FL (80.0-100.0); MEAN CORPUSCULAR HEMOGLOBIN 28.3 PG (27.0-34.0); MEAN CORPUSCULAR HGB CONC 33.4 % (32.0-36.0); PLATELET COUNT 57 TH/MM3 (150-450); RED BLOOD COUNT 3.98 MIL/MM3 (4.50-5.90); RED CELL DISTRIBUTION WIDTH 14.5 % (11.6-17.2); WHITE BLOOD COUNT 38.8 TH/MM3 (4.0-11.0)
[2016-01-07] MEDS: fentaNYL DRIP 250 ML IV SCH ×2 (07:06→20:19)
[2016-01-07 07:08] LABS: REVIEW FLAG FINAL
[2016-01-07] MEDS ORDERED: CALCIUM CHLORIDE INJ 1 GM in DEXTROSE 5% IN WATER 100ML INJ 100 ML IV ONE ×2 (07:15)
[2016-01-07] MEDS ORDERED: PHARMACY ORDERED LAB XX ONE (07:45)
[2016-01-07] MEDS: CHLORHEXIDINE 0.12% (ORAL KIT) 15 ML CUP MT SCH ×2 (08:00→20:18)
[2016-01-07] MEDS: CEFEPIME INJ 2,000 MG in SODIUM CHLORIDE 0.9% INJ 100 ML IV SCH ×2 (09:12→18:46)
[2016-01-07] MEDS: PANTOPRAZOLE INJ 80 MG in SODIUM CHLORIDE 0.9% INJ 100 ML IV SCH ×2 (09:12→18:46)
[2016-01-07] MEDS ORDERED: fentaNYL CITRATE 250 MCG/5 ML AMP ONE (09:28)
[2016-01-07] MEDS: predniSONE 5 MG/5 ML CUP PO SCH (11:43)
[2016-01-07] MEDS: metroNIDAZOLE 500 MG INJ 100 ML IV SCH ×2 (11:43→20:18)
[2016-01-07] MEDS: PHENYLEPHRINE INJ 40 MG in DEXTROSE 5% IN WATE 500 ML INJ 496 ML IV SCH ×2 (11:43)
[2016-01-07] MEDS: NEOMYCIN/POLYMYXIN/BACITRACIN OINT 15 GM TUBE TOPICAL SCH ×2 (11:44→20:19)
[2016-01-07] MEDS: POVIDONE IODINE 10% OINT 30 GM TUBE TOPICAL SCH (11:44)
[2016-01-07] MEDS: MIDAZOLAM 100 MG/ML INJ 100 ML IV SCH (11:46)
[2016-01-07] MEDS ORDERED: LACTATED RINGER'S 1000 ML INJ 1,000 ML IV ONE (12:00)
--- NOTE | 2016-01-07 12:45 | EKG ---
Date Performed: 01/06/2016 Time Performed: 20:02:56 PTAGE: 55 years EKG: Sinus tachycardia Compared to PREVIOUS TRACING , there has been improvement in the lateral T wave changes and worsening of the sinus tachycardia. Normal ECG except for rate PREVIOUS TRACIN12/12/2015 04.51 DOCTOR: Clau Patten Interpretating Date/Time 01/07/2016 12:43:57
[2016-01-07 13:47] LABS: HEMATOCRIT 33.1 % (39.0-51.0); MEAN CELL VOLUME 85.5 FL (80.0-100.0); MEAN CORPUSCULAR HEMOGLOBIN 28.9 PG (27.0-34.0); MEAN CORPUSCULAR HGB CONC 33.8 % (32.0-36.0); PLATELET COUNT 60 TH/MM3 (150-450); RED BLOOD COUNT 3.87 MIL/MM3 (4.50-5.90); RED CELL DISTRIBUTION WIDTH 14.7 % (11.6-17.2); WHITE BLOOD COUNT 30.4 TH/MM3 (4.0-11.0)
[2016-01-07 13:49] LABS: REVIEW FLAG FINAL
[2016-01-07] MEDS: VANCOMYCIN INJ 1,250 MG in SODIUM CHLOR 0.9% 250 ML INJ 250 ML IV SCH (13:53)
[2016-01-07] MEDS: MICAFUNGIN INJ 150 MG in SODIUM CHLORIDE 0.9% INJ 100 ML IV SCH (13:53)
[2016-01-07 13:57] LABS: APTT (PATIENT) 33.2 SEC (24.3-30.1); INTERNATIONAL NORMALIZED RATIO 1.3 RATIO; PROTHROMBIN TIME - PATIENT 14.3 SEC (9.8-11.6)
[2016-01-07 14:27] LABS: BICARBONATE 21.6 MEQ/L (21.0-32.0); POTASSIUM 3.1 MEQ/L (3.5-5.1); TOTAL BILIRUBIN ADULT 2.9 MG/DL (0.2-1.0)
--- NOTE | 2016-01-07 14:28 | HHI.CCPN ---
Subjective Remarks/Hospital Course 55-year-old male brought by EMS with altered mental status. He has been confused for 2 days but this morning has been the worst. He has history of chronic opiate medications including methadone and morphine that he takes for pain management and hence they gave him Narcan IV which brought the GCS up to 13. The blood glucose was 74. He has open wounds from his right upper and bilateral lower extremities. He has history of hepatitis C. Last week he was pealing and eating shrimps. Bedside blood sugar was 76 in the ER. He was tachycardic in 1 teens and was intubated in the ED for airway protection. Admitted to ICU with sepsis due to Staph Aureus hand infection and E. Coli bacteriemia. 12/05 Patient remains sedated with Fentanyl and intubated. On Levophed 3 mics, Vasopressin 0.03 mics and Bicarb drip. T:99.8 TF placed on hold OGT to LIWS last night - gastric drainage 525ml overnight. 12/06 Patient is sedated with Fentanyl and intubated, On Levophed 3 mics, off vasopressin. Gastric output 400ml in 24 hrs. KUB abdomen yesterday mildly distended colon otherwise non specific KUB. 12/07 Patient is off sedation remains intubated tolerated CPAP for most day yesterday. Afebrile. on no drips, tolerating tube feeds. 12/08 Patient went to OR yesterday for debridement and irrigation of right forearm and wound VAC placement. Given 2U PRBC and 2u PLT yesterday and currently receiving 1of 2 u additional PRBC. Hgb 7.7, PLT 43 this morning. Patient also started on pressors now on Levophed 10 mics. Vasopressin 0.04 mics. On no sedation. 12/09 Patient remains intubated off pressors, Afebrile. Tolerating tube feeds. Afebrile. 12/10 Patient is sedated with Fentanyl and intubated. Awake and follows commands off sedation. Afebrile. 12/11 Patient had ?SVT overnight given Lopressor 2.5mg IV x1, Remains intubated and sedated with Fentanyl. Afebrile. Tolerating TF. 12/12 Patient spoked fever last night with T: 101.5, sedated with Fentanyl and intubated. 12/13 Patient had an episode of desaturation overnight required increase FIO2/ PEE now on ACV with RR 14, TV 550, PEEP: 12, FIO2 60% with sats 100% CT chest performed overnight showed b/l consolidation and small pleural effusion. Had T: 100.0 last night. 12/14 Tolerating PS 15/CPAP 10 FiO2 40% with rSBI 38, weaning. . Awake and alert , following commands. Hypotensive overnight and levophed restarted up to 12 mcg/ min. Nurse has been weaning throughout the day. Suspected adrenal insufficiency as he was on prednisone as outpatient for gout and has not been on stress dose steroids. Given decadron. 12/15 Transfused 1 unit PRBC for Hgb 7.0 yesterday, 1 unit PRBC for Hgb 6.6 today and now Hgb 8.3. Does not clinically have e/o active GI bleeding and wound vac output nonbloody. Stool 1500 output, C diff negative. No abdominal pain. Remains Awake and alert, remained on CPAP 10/5 last night and is now tolerating CPAP 5/5. 12/16: Extubated yesterday tolerating well. Breathing comfortably. Able to follow commands. UO 1.8 L in 24 hours. Na slightly increased to 153. 12/17: Significantly worse this AM. WBC up to 28 from 16. Hgb 5.2 from 7.9. tachycardic. pale this AM. states he feels tired. Continues on BiPAP. Plan for debridement of his arms today. LIJ CVL does not have any signs of overt infection. 12/18: Blood cell count continues to rise today to 30 from 28. Required 1 unit of blood for hemoglobin of 6.6 which improved to 7.7 this morning. However, patient remains tachycardic in the 120s and significantly pale. CT abdomen and pelvis ordered and pending. Tachypneic with respiratory rate in the 30s. Only small amount of dark tarry stool yesterday with approximately 300 cc of stool output. C. difficile toxin negative 3. After discussion with infectious disease, restart vancomycin, cefepime, Flagyl, micafungin. Horn cultures are pending. Per discussion with GI, will not scope as endoscopy is high risk given his tenuous respiratory status this point. Slightly worse hypernatremia as well as worsening acute kidney injury this morning. 12/19: POD 1 s/p ex-lap, washout for perforated ascending colon with extended right hemicolectomy, primary ileocolic anastamosis, open abdomen, septic shock, acute hypoxic and hypercarbic respiratory failure. Significantly critically ill overnight: required 6L ivf resuscitation, 1 unit prbc, norepinephrine, vasopressin, stress dose hydrocortisone. This morning, remains on high-dose vasopressors. still has large volume ivf requirement. Significant SIRS response. Vent requirements increasing with all this volume resuscitation, PEEP up to 10. He remains critically ill, and although I do believe we have surgical source control, I anticipate he will continue to clinically decline before he starts to make improvements. 12/20: Off pressors. follows commands on sedation holiday. +11L over last 3 days during acute illness, +22L since admission. We are going to have to get some of this volume back before we are able to close him given his severe anasarca. 12/21: Taken back to the OR yesterday afternoon for washout and completion colectomy. Postoperatively was significantly under resuscitated as well as had ongoing active oozing. Patient was coagulopathy. The patient was in distributive and hemorrhagic shock. The patient was given multiple units of blood products overnight. Patient was thrombocytopenic, hypofibrinogenemic, coagulopathic. Given significant volume of blood product resuscitation: 24h blood products: 13 prbc 8 ffp 2 plt 1 10-pack cryo This morning continues to have significant amount of bright red output out of his BEV and wound VAC, approximately 500 cc an hour out of his wound VAC, and approximately 75 an mils every 10 minutes out of a BEV. I discussed with surgery and we will correct his coagulopathy and plan to go back to the OR for exploration early this afternoon. 12/22: Clinically starting to improve hemodynamically. off vasopressors. Net+ 26L. CVP rising to 14. UOP adequate. Hgb 7 this AM. 12/23 Seen postop. Hypertensive, BP improved with additional pain medicine. Remains net positive but urine output excellent 3L in 24 hours. Remains on Lasix gtt. went to OR today status post wound VAC change and partial closure 12/24: Fascia was closed yesterday. Wound Vac in place. Remains sedated. -2L negative balance, but with increasing BUN/creat. Discontinue Bumex infusion, start scheduled Bumex 2 mg IV every 12 with IV albumin. 12/25: Overnight became hypotensive requiring Levophed to be restarted. Hemoglobin dropped to 4.1. Noted to have bloody drainage from G-tube and dorsal ileostomy with black stool output 12/26: s/p EGD yesterday-2 gastric ulcers bleeding, stomach a significant part had decreased discoloration indicating probable ischemia. s/p epi injection and cauterization. Continues to have coffee ground G tube output, black tarry Ileostomy output. Hemoglobin down to 6.4 getting 2 units of PRBC. GI recent recommending intervention radiology consult. 12/27: For trach today. Meds ordered. Hgb decline consistent with recent transfusions and senescent cells. 12/28: Trach clean, dry. Start SBTs. Check prealbumin. Continue TPN. 12/29: Looks in direction of voice. I have not seen more purposeful reactions. Line > 12 days old, replace today. Prealbumin 20 - good response to TPN. 12/30: Remains vented, encephalopathic, puss like drainage from left hand, WBC increased 01/01: no significant changes. continues to remain critically ill with minimal improvements over the last week. abdomen closed. still total body volume overloaded. 01/02: more awake today than yesterday. continues to be critically ill with minimal improvements overall. need to look towards placement. -900 yesterday. 01/03: up in chair yesterday. tolerated short run of SBT 15/5/40%. net euvolemic. wbc downtrending. 01/04: wbc slightly uptrended 33 from 30, more acidotic on BMP (14 from 20). Also spiking fevers to 102.3 despite tylenol. continues on broad spectrum abx. yesterday's cxr had what may be a new LLL infiltrate. today, though, he is following commands and more awake and alert. 01/05: LLL pna clinically and based on bronch. CT c/a/p done last night without any significant intra-abdominal change. small left pleural effusion which appears simple in nature, and LLL consolidation. ID broadened abx. today , wbc downtrending. culture data pending. Hgb 7 this AM. 01/06: Underwent exploratory laparotomy last night with findings of bleeding gastric ulcer which was oversewn by Dr. Verdin abdomen left open with wound VAC in place. Received 3 units PRBCs overnight. Remains on Wesley-Synephrine drip this morning for hypotension. Remains sedated, on mechanical ventilation. Objective Vital Signs Date Time Temp Pulse Resp B/P Pulse Ox O2 Delivery O2 Flow Rate FiO2 01/07/16 13:53 24 01/07/16 12:01 100 40 01/07/16 12:00 97 01/07/16 12:00 98.4 106/76 01/03/16 08:44 Ventilator Intake and Output 01/06/16 01/06/16 01/07/16 08:00 16:00 00:00 Intake Total 1134 ml 1124 ml 2820 ml Output Total 1020 ml 1005 ml 2100 ml Balance 114 ml 119 ml 720 ml Result Diagram: 01/07/16 1330 01/07/16 0415 Other Results Laboratory Tests Test 01/06/16 01/06/16 01/06/16 01/06/16 19:06 19:47 20:20 20:40 White Blood Count 28.1 TH/MM3 Red Blood Count 2.53 MIL/MM3 Hemoglobin 7.2 GM/DL Hematocrit 23.0 % Mean Corpuscular Volume 90.7 FL Mean Corpuscular Hemoglobin 28.4 PG Mean Corpuscular Hemoglobin 31.3 % Concent Red Cell Distribution Width 19.3 % Platelet Count 250 TH/MM3 Mean Platelet Volume 10.0 FL Neutrophils (%) (Auto) 86.2 % Lymphocytes (%) (Auto) 6.1 % Monocytes (%) (Auto) 7.1 % Eosinophils (%) (Auto) 0.2 % Basophils (%) (Auto) 0.4 % Neutrophils # (Auto) 24.3 TH/MM3 Lymphocytes # (Auto) 1.7 TH/MM3 Monocytes # (Auto) 2.0 TH/MM3 Eosinophils # (Auto) 0.1 TH/MM3 Basophils # (Auto) 0.1 TH/MM3 CBC Comment DIFF FINAL Differential Comment Crossmatch Leukocyte-Reduced Red Blood Cells Blood Bank Comment Prothrombin Time 14.4 SEC Prothromb Time International 1.3 RATIO Ratio Activated Partial 36.6 SEC Thromboplast Time Fibrinogen 445 mg/dL Sodium Level 144 MEQ/L Potassium Level 3.9 MEQ/L Chloride Level 118 MEQ/L Carbon Dioxide Level 11.6 MEQ/L Anion Gap 14 MEQ/L Blood Urea Nitrogen 57 MG/DL Creatinine 1.57 MG/DL Estimat Glomerular Filtration 46 ML/MIN Rate Random Glucose 176 MG/DL Calcium Level 7.5 MG/DL Phosphorus Level 5.6 MG/DL Magnesium Level 2.0 MG/DL Total Creatine Kinase 23 U/L Troponin I 0.04 NG/ML Test 01/06/16 01/06/16 01/06/16 01/07/16 20:53 21:05 21:42 00:58 Blood Gas Puncture Site STACI Blood Gas Patient Temperature 98.6 Blood Gas HCO3 9 mmol/L Blood Gas Base Excess -16.6 mmol/L Blood Gas Oxygen Saturation 96 % Arterial Blood pH 7.25 Arterial Blood Partial 22 mmHg Pressure CO2 Arterial Blood Partial 103 mmHg Pressure O2 Arterial Blood Oxygen Content 11.8 Vol % Arterial Blood 1.2 % Carboxyhemoglobin Arterial Blood Methemoglobin 0.7 % Blood Gas Hemoglobin 8.6 G/DL Oxygen Delivery Device VENTILATOR Blood Gas Ventilator Setting AC//500/PEEP5 Blood Gas Inspired Oxygen 50 % Lactic Acid Level 3.2 mmol/L Crossmatch Leukocyte-Reduced Leukocyte-Reduced Red Blood Red Blood Cells Cells Blood Bank Comment Blood Type B POSITIVE Test 01/07/16 01/07/16 01/07/16 01/07/16 01:15 02:55 04:03 04:15 Hemoglobin 7.2 GM/DL 6.5 GM/DL Hematocrit 21.5 % 19.2 % Blood Gas Puncture Site STACI Blood Gas Patient Temperature 98.6 98.6 Blood Gas HCO3 16 mmol/L 16 mmol/L Blood Gas Base Excess -9.2 mmol/L -8.7 mmol/L Blood Gas Oxygen Saturation 97 % 96 % Arterial Blood pH 7.30 7.35 Arterial Blood Partial 34 mmHg 30 mmHg Pressure CO2 Arterial Blood Partial 216 mmHg 130 mmHg Pressure O2 Arterial Blood Oxygen Content 11.7 Vol % 8.9 Vol % Arterial Blood 1.4 % 1.8 % Carboxyhemoglobin Arterial Blood Methemoglobin 1.1 % 1.2 % Blood Gas Hemoglobin 8.2 G/DL 6.4 G/DL Blood Gas Inspired Oxygen 50 % 70 % Oxygen Delivery Device VENTILATOR Blood Gas Ventilator Setting AC//500/PEEP5 White Blood Count 27.7 TH/MM3 Red Blood Count 2.20 MIL/MM3 Mean Corpuscular Volume 87.4 FL Mean Corpuscular Hemoglobin 29.4 PG Mean Corpuscular Hemoglobin 33.7 % Concent Red Cell Distribution Width 15.0 % Platelet Count 54 TH/MM3 Mean Platelet Volume 9.8 FL Sodium Level 150 MEQ/L Potassium Level 3.0 MEQ/L Chloride Level 117 MEQ/L Carbon Dioxide Level 19.6 MEQ/L Anion Gap 13 MEQ/L Blood Urea Nitrogen 52 MG/DL Creatinine 1.42 MG/DL Estimat Glomerular Filtration 52 ML/MIN Rate Random Glucose 161 MG/DL Lactic Acid Level 4.5 mmol/L Calcium Level 5.6 MG/DL Protein Corrected Calcium 8.1 MG/DL Troponin I 0.07 NG/ML Total Protein 2.3 GM/DL Thyroid Stimulating Hormone 2.340 uIU/ML 3rd Gen Test 01/07/16 01/07/16 01/07/16 01/07/16 04:16 06:15 06:35 13:30 Blood Type B POSITIVE Crossmatch Leukocyte-Reduced Red Blood Cells Blood Bank Comment Prothrombin Time 15.3 SEC 14.3 SEC Prothromb Time International 1.4 RATIO 1.3 RATIO Ratio Activated Partial 37.0 SEC 33.2 SEC Thromboplast Time Fibrinogen 280 mg/dL White Blood Count 38.8 TH/MM3 30.4 TH/MM3 Red Blood Count 3.98 MIL/MM3 3.87 MIL/MM3 Hemoglobin 11.3 GM/DL 11.2 GM/DL Hematocrit 33.7 % 33.1 % Mean Corpuscular Volume 84.7 FL 85.5 FL Mean Corpuscular Hemoglobin 28.3 PG 28.9 PG Mean Corpuscular Hemoglobin 33.4 % 33.8 % Concent Red Cell Distribution Width 14.5 % 14.7 % Platelet Count 57 TH/MM3 60 TH/MM3 Mean Platelet Volume 10.7 FL 10.7 FL Imaging Last 48 hours Impressions Chest X-Ray 01/07/16 0000 Signed Impressions: Service Date/Time: Thursday, January 07, 2016 04:23 - CONCLUSION: Worsening consolidation or atelectasis at the left mid and lower lung. Some degree of left effusion may also be contributing to this. Arnaldo Reyes MD Chest X-Ray 01/06/16 0000 Signed Impressions: Service Date/Time: Wednesday, January 06, 2016 19:46 - CONCLUSION: 1. Basilar airspace disease improved from January 04. Tracheostomy and right central line in satisfactory position. Nomi Falcon MD Abdomen/Pelvis CT 01/06/16 0000 Signed Impressions: Service Date/Time: Wednesday, January 06, 2016 22:07 - CONCLUSION: 1. Over the last day there is development of a large mass in the left upper quadrant measuring up to 18 x 13 cm which appears to be associated with the stomach. The mass is characterized by somewhat concentric areas of decreased and increased attenuation with multiple locules of air. Primary differential diagnosis is hemorrhage into the gastric wall with gastric pneumatosis and possibly gastric ischemia. Gastrostomy is again noted anteriorly. 2. Remainder the exam is relatively stable with drainage tube left upper quadrant, splenectomy, bilateral effusions, feeding jejunostomy and drain within the pelvis. There is also diffuse anasarca and nonobstructing renal calculi. Nomi Falcon MD Last Impressions Chest X-Ray 12/17/15 0600 Signed Impressions: Service Date/Time: Thursday, December 17, 2015 03:25 - CONCLUSION: Persistent left lower lobe consolidation. Osmar Alegria MD Chest CT 12/14/15 0000 Signed Impressions: Service Date/Time: Monday, December 14, 2015 06:12 - CONCLUSION: 1. Cardiomegaly with bilateral consolidation, likely CHF. Pneumonia cannot be excluded. 2. Small right pleural effusion. Wojciech Lockhart MD Abdomen X-Ray 12/06/15 0000 Signed Impressions: Service Date/Time: November 09:53 - CONCLUSION: Nonspecific KUB. Air is seen within a mildly distended colon but contrast is clearly seen in the rectum. Arnaldo Reyes MD Abdomen/Pelvis CT 12/04/15 0000 Signed Impressions: Service Date/Time: Friday, December 04, 2015 16:24 - CONCLUSION: 1. Mildly distended small bowel in the mid and lower abdomen. Contrast is clearly seen extending into the distal small bowel and ascending colon so a complete obstruction is not seen. A transition point is not seen. This pattern likely represents an ileus versus a partial obstruction. 2. Multiple nonobstructing renal stones. 3. Abnormal appearance of the spleen which appears to represent a splenule. It could be correlated if the patient has had either primary splenic removal or splenic injury and this is what is either left of the spleen or a developing splenule. This is likely of no significance. 4. Mild ascites. 5. Increased density within the gallbladder representing either tumefactive sludge or noncalcified stones. 6. Mild bilateral pleural effusions with prominent areas of lower lobe atelectasis or consolidation at the bases bilaterally. 7. Subacute to chronic bilateral rib fractures and multiple compression fractures in the lower thoracic and lumbar spine as described above. The patient does have a prior CT examination from 08/26/2014. All the compression deformities described above are new when compared to that scan. Arnaldo Reyes MD Head CT 12/02/15 1013 Signed Impressions: Service Date/Time: Wednesday, December 02, 2015 11:00 - CONCLUSION: 1. No intracranial abnormality is seen. 2. Air-fluid level in the right maxillary sinus. Arnaldo Reyes MD Objective Remarks GENERAL: Middle-aged male, lying in bed, trached. remains critically ill. HEENT: NCAT. mucous membranes moist. NECK: trach in place. obese neck. difficult to assess JVD. right IJ triple lumen catheter in place, site clean RESPIRATORY: Breath sounds equal bilaterally. coarse crackles b/l. CARDIOVASCULAR: Tachycardic, regular rhythm without murmurs, rubs. GASTROINTESTINAL: Abdomen fascia is closed midline wound vac in place. nontender, nondistended. no guarding. MUSCULOSKELETAL: Generalized anasarca. Multiple open wounds in the lower extremity. RUE - with wound vac in place. L upper extremity dressing in place. NEURO: RASS - 2. CAM+. briskly follows commands this morning. Remains on fentanyl. 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 for sedation/analgesia. Titrate off Versed today. - fentanyl patch 75mcg/h q3d for long acting pain control. - liquid tylenol 650mg per tube q6h. - Dilaudid 2mg iv q4h prn for breakthrough pain. - ketamine drip d/cd 12/22. - oxycodone 20mg per tube q4h scheduled to help wean off fentanyl infusion. -- he is a little more somnolent today. we will start with aggressive day/night orientation and sleep hygiene. he may need some background atypical antipsychotic to help if this is early delirium. Respiratory Acute respiratory failure-extubated 12/16/15, reintubated for surgery 12/18 Acute hypoxic and hypercarbic respiratory failure Acute healthcare associated pneumonia- resolved NIGEL on home CPAP - Extubated 12/15 - reintubated for emergent ex-lap 12/18. - Tracheostomy 12/27 - Vent bundle. Head of bed at 30 degrees. Nebs q6h and q2h prn. - Daily CPap trials held in view of emergent surgery on 01/05 and now open abdomen. CV Hemorrhagic shock- resolved Septic Shock- resolved Volume overload - keep map > 65 mmHg. - Cortisol level 14 on 12/14 - Prednisone held. will start hydrocortisone 50mg Q8hrly as patient back on Phenylephrine. - Echo 12/07 EF 65-70%, grade I diastolic dysfunction Renal: DEIRDRE Hypernatremia - Continue bicarbonate drip, strict intake output, monitor and replete electrolites, follow BUN/creatinine. - On diuretics to mobilize fluid FEN/GI Acute GIB, hemorrhagic shock Perforated right colon with colitis s/p ex-lap, extended right hemicolectomy with primary ileocolic anastamosis, washout, open abdomen (12/18) s/p Elap 01/05 for bleeding gastric ulcer Acute protein calorie malnutrition- severe Hypokalemia Total body volume overload Intravascular hypervolemia - PPI i.v. BID - EGD 12/26/15 showed 2 large gastric ulcers with active bleeding status post epinephrine infusion and cauterization - ICU electrolyte protocol - Daily CMP - OR on 12/24 with Removal of VAC, washout, pancreatic drain and pelvic drain placement, gastrostomy, feeding jejunostomy and closure of abdomen with application of VAC device in the subcutaneous tissue. - TFs via jejunostomy to be resumed when OK with surgery - off TPN 01/01. - on full TF at goal - held 01/05 for bleeding gastric ulcer s/p Elap. Heme: Acute Anemia secondary to acute blood loss Thrombocytopenia Hypofibrinogenemia secondary to consumption and acute blood loss Coagulopathy secondary to consumption and acute blood loss --monitor CBC, qday H/H. --Hep PLT ab negative on 12/03 --Platelets FFP fibrinogen as needed --Trend Hgb - Ferrous Sulfate TID - transfused 3 units PRBCs 01/05- ID Severe sepsis Necrotizing Fascitis - MSSA on wound culture 12/07. Ecoli bacteremia 12/01 MSSA bacteremia 12/05. Cleared on f/u blood culture 12/07, 12/12. Leukocytosis Sepsis of Intra-abdominal origin. C. difficile toxic megacolon --Debridement 12/01 p.m at bedside by Dr Pedro and Dr. Hartmann --R hand, forearm and olecranon bursa I and D and Wound vac 12/07 Dr Chavez. -- IV cefepime,flagyl IV, micafungin. PO/intracolonic treatment for C.diff is contraindicated per --12/17 blood cultures: NGTD 12/17 central line culture: NGTD 12/17 urine cultures: NGTD 12/17 sputum cultures: NGTD C. difficile toxin 12/17: Negative (3rd negative toxin screen) 01/04: horn culture, bronch with BAL, 01/04: CT chest/abd/pelvis without contrast: LLL consolidation, otherwise unchanged. 01/04: clinically LLL VAP. --ID Dr. Becerra Endocrine: Hyperglycemia of Critical Illness Diabetes - off Insulin drip - Moderate SSI - Levemir BID on hold. - Prednisone 10mg po daily. slow taper started however pt back on pressors after Elap on 01/06 so starting hydrocortisone 50 mg IV every 8 hourly on 01/06 Prophylaxis: GI Prophylaxis: -- Protonix IV BID DVT Prophylaxis: - SCDs Resume subcutaneous heparin when okay with general surgery Lines: -- Sandoval -- right axillary arterial line 01/04 -- right IJ TLC 01/04 Dispo: -- He remains in the ISC and severely critically ill, ventilator weaning failure , ongoing sepsis. Critical Care: The total critical care time was 50 minutes. Time to perform other separately billable procedures was not included in the critical care time. Problem Qualifiers (1) Respiratory failure: Qualified Code: J96.00 - Acute respiratory failure, unspecified whether with hypoxia or hypercapnia (2) Altered mental status: Qualified Code: R41.0 - Delirium (3) Sepsis: Qualified Code: A41.9 - Sepsis, due to unspecified organism Christopher Clark MD Jan 07, 2016 14:28
[2016-01-07] MEDS: HYDROCORTISONE SOD SUCCINATE 100 MG VIAL IV PUSH SCH ×2 (15:50→20:19)
--- NOTE | 2016-01-07 16:28 | HHI.IDPN ---
Subjective Subjective Remarks Event snoted pt deteriorated He developped another GI b;leed from his gastric ulcer and was taken to OR for emergent sx He is hypothermic He is on pressors His WBC is up to 38K Antibiotics cefepime IV, IV flagyl micafungin IV IV Vancomycin Lines RSC TLC Past Medical History RA HCV sp splenectomy Allergies: Coded Allergies: Compazine (Verified Allergy, Severe, VOMITING, RASH, 08/26/14) SLURRED SPEECH, MIGRAINES Demerol (Verified Allergy, Severe, VOMITING, 08/26/14) Levaquin (Verified Allergy, Severe, 08/26/14) Penicillin (Verified Allergy, Severe, Rash, 08/26/14) Phenergan (Verified Allergy, Severe, VOMITING, 08/26/14) Uncoded Allergies: ANTI-CONVULSIVES (Allergy, Severe, MIGRAINES, SLURRED SPEECH,, 01/23/14) Objective . Vital Signs Date Time Temp Pulse Resp B/P Pulse Ox O2 Delivery O2 Flow Rate FiO2 01/07/16 15:32 24 01/07/16 15:32 24 01/07/16 14:00 100 01/07/16 12:01 100 40 01/07/16 12:00 97 01/07/16 12:00 35 01/07/16 12:00 98.4 97 24 106/76 100 01/07/16 10:00 92 01/07/16 08:51 97 50 01/07/16 08:00 35 01/07/16 08:00 93.9 72 24 154/96 100 01/07/16 08:00 72 01/07/16 06:00 80 01/07/16 04:21 100 70 01/07/16 04:00 97.5 93 24 111/69 100 01/07/16 04:00 35 01/07/16 04:00 92 01/07/16 00:00 98.1 114 26 86/56 100 01/07/16 00:00 114 01/07/16 00:00 35 01/06/16 22:00 122 01/06/16 20:00 98.2 130 46 88/58 100 01/06/16 20:00 35 01/06/16 20:00 130 01/06/16 19:37 99 50 01/06/16 18:00 91 01/06/16 16:50 100 35 01/06/16 01/06/16 01/07/16 15:00 23:00 07:00 Intake Total 1124 ml 8122 ml Output Total 1005 ml 2280 ml Balance 119 ml 5842 ml IV Total 691 ml 5872 ml Tube Feeding 233 ml 250 ml Packed Cells 1500 ml FFP 500 ml Other 200 ml Output Urine Total 450 ml 1220 ml Stool Total 100 ml 200 ml Gastric Drainage Total 125 ml 650 ml Drainage Total 330 ml 210 ml . Laboratory Tests Test 01/06/16 01/06/16 01/07/16 01/07/16 05:10 19:06 01:15 04:15 White Blood Count 27.8 TH/MM3 28.1 TH/MM3 27.7 TH/MM3 Red Blood Count 2.40 MIL/MM3 2.53 MIL/MM3 2.20 MIL/MM3 Hemoglobin 7.0 GM/DL 7.2 GM/DL 7.2 GM/DL 6.5 GM/DL Hematocrit 22.3 % 23.0 % 21.5 % 19.2 % Mean Corpuscular Volume 92.7 FL 90.7 FL 87.4 FL Mean Corpuscular Hemoglobin 29.0 PG 28.4 PG 29.4 PG Mean Corpuscular Hemoglobin 31.3 % 31.3 % 33.7 % Concent Red Cell Distribution Width 19.7 % 19.3 % 15.0 % Platelet Count 259 TH/MM3 250 TH/MM3 54 TH/MM3 Mean Platelet Volume 10.1 FL 10.0 FL 9.8 FL Neutrophils (%) (Auto) 86.2 % Lymphocytes (%) (Auto) 6.1 % Monocytes (%) (Auto) 7.1 % Eosinophils (%) (Auto) 0.2 % Basophils (%) (Auto) 0.4 % Neutrophils # (Auto) 24.3 TH/MM3 Lymphocytes # (Auto) 1.7 TH/MM3 Monocytes # (Auto) 2.0 TH/MM3 Eosinophils # (Auto) 0.1 TH/MM3 Basophils # (Auto) 0.1 TH/MM3 CBC Comment DIFF FINAL Differential Comment Test 01/07/16 01/07/16 06:35 13:30 White Blood Count 38.8 TH/MM3 30.4 TH/MM3 Red Blood Count 3.98 MIL/MM3 3.87 MIL/MM3 Hemoglobin 11.3 GM/DL 11.2 GM/DL Hematocrit 33.7 % 33.1 % Mean Corpuscular Volume 84.7 FL 85.5 FL Mean Corpuscular Hemoglobin 28.3 PG 28.9 PG Mean Corpuscular Hemoglobin 33.4 % 33.8 % Concent Red Cell Distribution Width 14.5 % 14.7 % Platelet Count 57 TH/MM3 60 TH/MM3 Mean Platelet Volume 10.7 FL 10.7 FL Laboratory Tests Test 01/06/16 01/06/16 01/06/16 01/07/16 05:10 20:40 21:05 04:15 Sodium Level 147 MEQ/L 144 MEQ/L 150 MEQ/L Potassium Level 3.9 MEQ/L 3.9 MEQ/L 3.0 MEQ/L Chloride Level 121 MEQ/L 118 MEQ/L 117 MEQ/L Carbon Dioxide Level 15.7 MEQ/L 11.6 MEQ/L 19.6 MEQ/L Anion Gap 10 MEQ/L 14 MEQ/L 13 MEQ/L Blood Urea Nitrogen 54 MG/DL 57 MG/DL 52 MG/DL Creatinine 1.45 MG/DL 1.57 MG/DL 1.42 MG/DL Estimat Glomerular Filtration 51 ML/MIN 46 ML/MIN 52 ML/MIN Rate Random Glucose 123 MG/DL 176 MG/DL 161 MG/DL Calcium Level 7.8 MG/DL 7.5 MG/DL 5.6 MG/DL Phosphorus Level 5.6 MG/DL Magnesium Level 2.0 MG/DL Total Creatine Kinase 23 U/L Troponin I 0.04 NG/ML 0.07 NG/ML Lactic Acid Level 3.2 mmol/L 4.5 mmol/L Protein Corrected Calcium 8.1 MG/DL Total Protein 2.3 GM/DL Thyroid Stimulating Hormone 2.340 uIU/ML 3rd Gen Test 01/07/16 13:30 Sodium Level 147 MEQ/L Potassium Level 3.1 MEQ/L Chloride Level 112 MEQ/L Carbon Dioxide Level 21.6 MEQ/L Anion Gap 13 MEQ/L Blood Urea Nitrogen 51 MG/DL Creatinine 1.40 MG/DL Estimat Glomerular Filtration 53 ML/MIN Rate Random Glucose 157 MG/DL Calcium Level 6.8 MG/DL Protein Corrected Calcium 9.0 MG/DL Total Bilirubin 2.9 MG/DL Aspartate Amino Transf 304 U/L (AST/SGOT) Alanine Aminotransferase 106 U/L (ALT/SGPT) Alkaline Phosphatase 65 U/L Total Protein 3.3 GM/DL Albumin 1.1 GM/DL Microbiology Date/Time Procedure Status Source Growth 01/05/16 12:58 Aerobic Blood Culture Received Blood Peripheral Pending 01/05/16 12:58 Anaerobic Blood Culture Received Blood Peripheral Pending 01/05/16 14:00 Gram Stain - Final Resulted Bronchial Washings Left Upper Lobe 01/05/16 14:00 Bronchial Culture - Preliminary Resulted Bronchial Washings Left Upper Lobe LIGHT GROWTH NORMAL RESPIRATORY DORI... 01/05/16 14:00 Fungal Smear - Final Resulted Bronchial Washings Left Lower Lobe NO FUNGAL ELEMENTS SEEN. 01/05/16 14:00 Fungal Culture Resulted Bronchial Washings Left Lower Lobe Pending 01/05/16 14:50 Aerobic Blood Culture - Preliminary Resulted Blood Peripheral NO GROWTH IN 2 DAYS 01/05/16 14:50 Anaerobic Blood Culture - Preliminary Resulted Blood Peripheral NO GROWTH IN 2 DAYS 01/05/16 14:50 Aerobic Blood Culture - Preliminary Resulted Blood Peripheral NO GROWTH IN 2 DAYS 01/05/16 14:50 Anaerobic Blood Culture - Preliminary Resulted Blood Peripheral NO GROWTH IN 2 DAYS Imaging Last Impressions Chest X-Ray 01/07/16 0000 Signed Impressions: Service Date/Time: Thursday, January 07, 2016 04:23 - CONCLUSION: Worsening consolidation or atelectasis at the left mid and lower lung. Some degree of left effusion may also be contributing to this. Arnaldo Reyes MD Abdomen/Pelvis CT 01/06/16 0000 Signed Impressions: Service Date/Time: Wednesday, January 06, 2016 22:07 - CONCLUSION: 1. Over the last day there is development of a large mass in the left upper quadrant measuring up to 18 x 13 cm which appears to be associated with the stomach. The mass is characterized by somewhat concentric areas of decreased and increased attenuation with multiple locules of air. Primary differential diagnosis is hemorrhage into the gastric wall with gastric pneumatosis and possibly gastric ischemia. Gastrostomy is again noted anteriorly. 2. Remainder the exam is relatively stable with drainage tube left upper quadrant, splenectomy, bilateral effusions, feeding jejunostomy and drain within the pelvis. There is also diffuse anasarca and nonobstructing renal calculi. Nomi Falcon MD Chest CT 01/05/16 0000 Signed Impressions: Service Date/Time: Tuesday, January 05, 2016 23:15 - CONCLUSION: 1. Persistent left lower lobar consolidation. Improved consolidative infiltrates in the right lower lung. 2. Interval increase size bilateral pleural effusions , left greater than right. Osmar Alegria MD Celiac/Hepatic Arteriogram 12/27/15 0000 Signed Impressions: Service Date/Time: December 13:41 - CONCLUSION: 1. No active GI bleed identified. Robert Mckinney MD Abdomen X-Ray 12/18/15 0000 Signed Impressions: Service Date/Time: Friday, December 18, 2015 16:05 - CONCLUSION: Feeding tube tip is at the gastric antrum. Arnaldo Elias MD Head CT 12/02/15 1013 Signed Impressions: Service Date/Time: Wednesday, December 02, 2015 11:00 - CONCLUSION: 1. No intracranial abnormality is seen. 2. Air-fluid level in the right maxillary sinus. Arnaldo Reyes MD Physical Exam GENERAL: On vent , sedated intubated, unresponsive SKIN: + minimal jaundice. Anasarca HEENT: no icterus, no nasal discharge NECK: Trach in place CARDIOVASCULAR: systolic murmur in base of heart RESPIRATORY/CHEST: scattered rhonchi on auscultation. Breath sounds equal bilaterally. GASTROINTESTINAL: Abdomen with VAC in place serosang dc and stoma in place with dark brown soft stool JPs in place with serous drainage GENITOURINARY: Sandoval catheter in place with clear light yellow urine with sediment MUSCULOSKELETAL: Extremities no cyanosis, edema 2-3+ pitting with poorly healing wounds NEUROLOGICAL: sedated, unresponsive LINES: NO evidence of infection Assessment & Plan Remarks Sepsis related to Cdiff and Intra abdominal peritonitis. - sp subtotal colectomy and ileostomy SP colon perfocation and intraperitoneal gross contamination ? Cdiff Colitis Noted Cdiff PCR is negative3/3 ? Zinc preparation in perianal care could cause false negative test. Path c/o Cdiff Colitis. - repeat path favouring ischemia RUE severe nec fasc due to MSSA - skin grafting was planned, but cancelled - S/P I and D x 3 - clinically resolved MSSA bacteremia 2/2 RUE infx - resolved E.coli bacteremia on presentation -source is likely gut Immunosuppressed on steroids, s/p splenectomy. PCN allergy, but no probs with Keflex per report. ARF/ DEIRDRE/ATN 2/2 sepsis -stable Patient is stable and clinically improving Sp upper GI bleeding - resolved Persistent and worsening leukocytosis - liekly reactive leukocytosis 2/2 massive gstic bleeding INtermittent fevers Shock, on neosynephrina and vasopressiv PLAN: Continue IV cefepime,flagyl IV, micafungin IV fu repeat C/S Continue Vancomycin Follow CBC Monitor temps Monitor progress D/W Argelia Abdi Dr, MD Jan 07, 2016 16:28
[2016-01-07] MEDS: FUROSEMIDE 20 MG/2 ML VIAL IV PUSH SCH ×2 (17:07→18:00)
[2016-01-07] MEDS: POTASSIUM CHLOR 40 MEQ PREMIX 100 ML IV PRN ×2 (17:10→18:42)
[2016-01-07] MEDS: VASOPRESSIN INJ 40 UNITS in DEXTROSE 5% IN WATER 100ML INJ 98 ML IV SCH ×2 (23:33)
[2016-01-08] VITALS (19 sets, daily range): BP systolic 90–118; BP diastolic 62–80; PULSE 88–114; RESP 24–25; TEMP 96.8–100; O2SAT 93–99
[2016-01-08 01:03] LABS: HEMATOCRIT 32.1 % (39.0-51.0)
[2016-01-08 01:09] LABS: REVIEW FLAG FINAL
[2016-01-08 01:51] LABS: POTASSIUM 4.1 MEQ/L (3.5-5.1); VANCOMYCIN TROUGH 29.9 MCG/ML (5.0-10.0)
[2016-01-08] MEDS: oxyCODONE HCL ORAL CONC 20 MG/ML SYRINGE PO SCH ×6 (03:07→22:56)
[2016-01-08] MEDS: FREE WATER G-TUBE SCH ×2 (03:07)
[2016-01-08] MEDS: CHLORHEXIDINE GLUCONATE 2 % 1 PACK (2 CLOTHS) TOP SCH (04:00)
[2016-01-08] MEDS: METOPROLOL TARTRATE 5 MG/5 ML VIAL IV PUSH SCH ×5 (04:00→16:54)
[2016-01-08] MEDS: PANTOPRAZOLE INJ 80 MG in SODIUM CHLORIDE 0.9% INJ 100 ML IV SCH ×2 (04:11→13:30)
[2016-01-08] MEDS: metroNIDAZOLE 500 MG INJ 100 ML IV SCH ×3 (04:12→22:56)
[2016-01-08 04:41] LABS: HEMATOCRIT 29.9 % (39.0-51.0); MEAN CELL VOLUME 82.2 FL (80.0-100.0); MEAN CORPUSCULAR HEMOGLOBIN 29.5 PG (27.0-34.0); MEAN CORPUSCULAR HGB CONC 35.9 % (32.0-36.0); PLATELET COUNT 76 TH/MM3 (150-450); RED BLOOD COUNT 3.64 MIL/MM3 (4.50-5.90); WHITE BLOOD COUNT 28.9 TH/MM3 (4.0-11.0)
[2016-01-08 04:46] LABS: REVIEW FLAG FINAL
[2016-01-08] MEDS: ACETAMINOPHEN 650 MG/20.3 ML UDC PO SCH ×4 (05:06→22:57)
[2016-01-08 05:24] LABS: BICARBONATE 27.6 MEQ/L (21.0-32.0); POTASSIUM 3.8 MEQ/L (3.5-5.1)
[2016-01-08 05:53] LABS: CALCIUM-PROTEIN CORRECTED 8.5 MG/DL (8.5-10.1)
[2016-01-08] MEDS: INSULIN ASPART SUPPLEMENTAL SCALE SQ SCH ×5 (06:00→19:15)
[2016-01-08] MEDS: HYDROCORTISONE SOD SUCCINATE 100 MG VIAL IV PUSH SCH ×3 (06:16→22:57)
[2016-01-08] MEDS: CEFEPIME INJ 2,000 MG in SODIUM CHLORIDE 0.9% INJ 100 ML IV SCH ×2 (06:16→18:52)
[2016-01-08] MEDS: FUROSEMIDE 20 MG/2 ML VIAL IV PUSH SCH ×2 (08:16→18:53)
[2016-01-08] MEDS: NEOMYCIN/POLYMYXIN/BACITRACIN OINT 15 GM TUBE TOPICAL SCH ×2 (08:21→22:56)
[2016-01-08] MEDS ORDERED: PHARMACY ORDERED LAB XX ONE (08:45)
[2016-01-08] MEDS: POVIDONE IODINE 10% OINT 30 GM TUBE TOPICAL SCH (09:00)
[2016-01-08] MEDS: MICAFUNGIN INJ 150 MG in SODIUM CHLORIDE 0.9% INJ 100 ML IV SCH (14:00)
[2016-01-08] MEDS ORDERED: SUGAMMADEX SODIUM 200 MG/2 ML VIAL IV PUSH ONE ×2 (15:25)
[2016-01-08] MEDS ORDERED: ACETAMINOPHEN 1000 MG/100 ML VIAL IV ONE (15:25)
--- NOTE | 2016-01-08 15:31 | HHI.IDPN ---
Subjective Subjective Remarks hypothermic earlier, on warming blanket, now temps up to 100.0 for OR thia pm not much secretions cont to have bloody output per NG and stoma Antibiotics cefepime IV, IV flagyl micafungin IV IV Vancomycin Lines RSC TLC Past Medical History RA HCV sp splenectomy Allergies: Coded Allergies: Compazine (Verified Allergy, Severe, VOMITING, RASH, 08/26/14) SLURRED SPEECH, MIGRAINES Demerol (Verified Allergy, Severe, VOMITING, 08/26/14) Levaquin (Verified Allergy, Severe, 08/26/14) Penicillin (Verified Allergy, Severe, Rash, 08/26/14) Phenergan (Verified Allergy, Severe, VOMITING, 08/26/14) Uncoded Allergies: ANTI-CONVULSIVES (Allergy, Severe, MIGRAINES, SLURRED SPEECH,, 01/23/14) Objective . Vital Signs Date Time Temp Pulse Resp B/P Pulse Ox O2 Delivery O2 Flow Rate FiO2 01/08/16 12:06 93 60 01/08/16 10:00 88 01/08/16 08:04 96 60 01/08/16 08:00 60 01/08/16 08:00 88 01/08/16 08:00 96.8 88 24 105/74 99 01/08/16 06:00 114 01/08/16 04:55 60 01/08/16 04:00 97.9 108 24 118/80 97 01/08/16 04:00 108 01/08/16 04:00 35 01/08/16 03:44 96 40 01/08/16 02:00 104 01/08/16 00:55 97 40 01/08/16 00:00 104 01/08/16 00:00 97.0 104 24 109/80 98 01/08/16 00:00 35 01/07/16 22:00 102 01/07/16 20:34 99 40 01/07/16 20:00 35 01/07/16 20:00 95.7 100 24 96/72 98 01/07/16 20:00 100 01/07/16 18:00 101 01/07/16 16:24 100 40 01/07/16 16:00 99.0 100 24 108/78 100 01/07/16 16:00 35 01/07/16 16:00 100 01/07/16 15:32 24 01/07/16 15:32 24 01/07/16 01/07/16 01/08/16 14:59 22:59 06:59 Intake Total 3022 ml 3101 ml 1938 ml Output Total 905 ml 922 ml 995 ml Balance 2117 ml 2179 ml 943 ml IV Total 2522 ml 2701 ml 1818 ml Packed Cells 500 ml Tube Irrigant 400 ml 120 ml Output Urine Total 225 ml 525 ml 300 ml Stool Total 150 ml 25 ml 40 ml Gastric Drainage Total 150 ml 100 ml 400 ml Drainage Total 380 ml 272 ml 255 ml . Laboratory Tests Test 01/06/16 01/07/16 01/07/16 01/07/16 19:06 01:15 04:15 06:35 White Blood Count 28.1 TH/MM3 27.7 TH/MM3 38.8 TH/MM3 Red Blood Count 2.53 MIL/MM3 2.20 MIL/MM3 3.98 MIL/MM3 Hemoglobin 7.2 GM/DL 7.2 GM/DL 6.5 GM/DL 11.3 GM/DL Hematocrit 23.0 % 21.5 % 19.2 % 33.7 % Mean Corpuscular Volume 90.7 FL 87.4 FL 84.7 FL Mean Corpuscular Hemoglobin 28.4 PG 29.4 PG 28.3 PG Mean Corpuscular Hemoglobin 31.3 % 33.7 % 33.4 % Concent Red Cell Distribution Width 19.3 % 15.0 % 14.5 % Platelet Count 250 TH/MM3 54 TH/MM3 57 TH/MM3 Mean Platelet Volume 10.0 FL 9.8 FL 10.7 FL Neutrophils (%) (Auto) 86.2 % Lymphocytes (%) (Auto) 6.1 % Monocytes (%) (Auto) 7.1 % Eosinophils (%) (Auto) 0.2 % Basophils (%) (Auto) 0.4 % Neutrophils # (Auto) 24.3 TH/MM3 Lymphocytes # (Auto) 1.7 TH/MM3 Monocytes # (Auto) 2.0 TH/MM3 Eosinophils # (Auto) 0.1 TH/MM3 Basophils # (Auto) 0.1 TH/MM3 CBC Comment DIFF FINAL Differential Comment Test 01/07/16 01/08/16 01/08/16 13:30 00:50 04:30 White Blood Count 30.4 TH/MM3 28.9 TH/MM3 Red Blood Count 3.87 MIL/MM3 3.64 MIL/MM3 Hemoglobin 11.2 GM/DL 11.3 GM/DL 10.8 GM/DL Hematocrit 33.1 % 32.1 % 29.9 % Mean Corpuscular Volume 85.5 FL 82.2 FL Mean Corpuscular Hemoglobin 28.9 PG 29.5 PG Mean Corpuscular Hemoglobin 33.8 % 35.9 % Concent Red Cell Distribution Width 14.7 % 15.0 % Platelet Count 60 TH/MM3 76 TH/MM3 Mean Platelet Volume 10.7 FL 10.3 FL Laboratory Tests Test 01/06/16 01/06/16 01/07/16 01/07/16 20:40 21:05 04:15 13:30 Sodium Level 144 MEQ/L 150 MEQ/L 147 MEQ/L Potassium Level 3.9 MEQ/L 3.0 MEQ/L 3.1 MEQ/L Chloride Level 118 MEQ/L 117 MEQ/L 112 MEQ/L Carbon Dioxide Level 11.6 MEQ/L 19.6 MEQ/L 21.6 MEQ/L Anion Gap 14 MEQ/L 13 MEQ/L 13 MEQ/L Blood Urea Nitrogen 57 MG/DL 52 MG/DL 51 MG/DL Creatinine 1.57 MG/DL 1.42 MG/DL 1.40 MG/DL Estimat Glomerular Filtration 46 ML/MIN 52 ML/MIN 53 ML/MIN Rate Random Glucose 176 MG/DL 161 MG/DL 157 MG/DL Calcium Level 7.5 MG/DL 5.6 MG/DL 6.8 MG/DL Phosphorus Level 5.6 MG/DL Magnesium Level 2.0 MG/DL Total Creatine Kinase 23 U/L Troponin I 0.04 NG/ML 0.07 NG/ML Lactic Acid Level 3.2 mmol/L 4.5 mmol/L Protein Corrected Calcium 8.1 MG/DL 9.0 MG/DL Total Protein 2.3 GM/DL 3.3 GM/DL Thyroid Stimulating Hormone 2.340 uIU/ML 3rd Gen Total Bilirubin 2.9 MG/DL Aspartate Amino Transf 304 U/L (AST/SGOT) Alanine Aminotransferase 106 U/L (ALT/SGPT) Alkaline Phosphatase 65 U/L Albumin 1.1 GM/DL Test 01/08/16 01/08/16 00:50 04:30 Potassium Level 4.1 MEQ/L 3.8 MEQ/L Sodium Level 145 MEQ/L Chloride Level 107 MEQ/L Carbon Dioxide Level 27.6 MEQ/L Anion Gap 10 MEQ/L Blood Urea Nitrogen 49 MG/DL Creatinine 1.31 MG/DL Estimat Glomerular Filtration 57 ML/MIN Rate Random Glucose 97 MG/DL Calcium Level 6.6 MG/DL Protein Corrected Calcium 8.5 MG/DL Total Protein 3.6 GM/DL Imaging Last Impressions Chest X-Ray 01/07/16 0000 Signed Impressions: Service Date/Time: Thursday, January 07, 2016 04:23 - CONCLUSION: Worsening consolidation or atelectasis at the left mid and lower lung. Some degree of left effusion may also be contributing to this. Arnaldo Reyes MD Abdomen/Pelvis CT 01/06/16 0000 Signed Impressions: Service Date/Time: Wednesday, January 06, 2016 22:07 - CONCLUSION: 1. Over the last day there is development of a large mass in the left upper quadrant measuring up to 18 x 13 cm which appears to be associated with the stomach. The mass is characterized by somewhat concentric areas of decreased and increased attenuation with multiple locules of air. Primary differential diagnosis is hemorrhage into the gastric wall with gastric pneumatosis and possibly gastric ischemia. Gastrostomy is again noted anteriorly. 2. Remainder the exam is relatively stable with drainage tube left upper quadrant, splenectomy, bilateral effusions, feeding jejunostomy and drain within the pelvis. There is also diffuse anasarca and nonobstructing renal calculi. Nomi Falcon MD Chest CT 01/05/16 0000 Signed Impressions: Service Date/Time: Tuesday, January 05, 2016 23:15 - CONCLUSION: 1. Persistent left lower lobar consolidation. Improved consolidative infiltrates in the right lower lung. 2. Interval increase size bilateral pleural effusions , left greater than right. Osmar Alegria MD Celiac/Hepatic Arteriogram 12/27/15 0000 Signed Impressions: Service Date/Time: December 13:41 - CONCLUSION: 1. No active GI bleed identified. Robert Mckinney MD Abdomen X-Ray 12/18/15 0000 Signed Impressions: Service Date/Time: Friday, December 18, 2015 16:05 - CONCLUSION: Feeding tube tip is at the gastric antrum. Arnaldo Elias MD Head CT 12/02/15 1013 Signed Impressions: Service Date/Time: Wednesday, December 02, 2015 11:00 - CONCLUSION: 1. No intracranial abnormality is seen. 2. Air-fluid level in the right maxillary sinus. Arnaldo Reyes MD Physical Exam GENERAL: On vent , sedated intubated, unresponsive SKIN: + minimal jaundice. Anasarca HEENT: no icterus, no nasal discharge NECK: Trach in place CARDIOVASCULAR: systolic murmur in base of heart RESPIRATORY/CHEST: scattered rhonchi on auscultation.L side with crackes GASTROINTESTINAL: Abdomen with VAC in place serosang dc and stoma in place with dark brown soft stool JPs in place with serous drainage Stoma with maroon stool GENITOURINARY: Sandoval catheter in place with clear light yellow urine with sediment MUSCULOSKELETAL: Extremities no cyanosis, edema 2-3+ pitting with poorly healing wounds RUE with VAC in place, serosang dc NEUROLOGICAL: sedated, unresponsive LINES: NO evidence of infection Assessment & Plan Remarks Sepsis related to Cdiff and Intra abdominal peritonitis. - sp subtotal colectomy and ileostomy SP colon perfocation and intraperitoneal gross contamination ? Cdiff Colitis Noted Cdiff PCR is negative3/3 ? Zinc preparation in perianal care could cause false negative test. Path c/o Cdiff Colitis. - repeat path favouring ischemia RUE severe nec fasc due to MSSA - skin grafting was planned, but cancelled - S/P I and D x 3 - clinically resolved MSSA bacteremia 2/2 RUE infx - resolved E.coli bacteremia on presentation -source is likely gut Immunosuppressed on steroids, s/p splenectomy. PCN allergy, but no probs with Keflex per report. ARF/ DEIRDRE/ATN 2/2 sepsis -stable Recurretn life threatening upper GI bleeding 2/2 bleeding ulcers Persistent leukocytosis - liekly reactive leukocytosis 2/2 massive gstic bleeding INtermittent fevers Shock, on neosynephrina and vasopressiv PLAN: Continue IV cefepime,flagyl IV, micafungin IV Continue Vancomycin fu WBC would likel to see better WBC before deescalating and stopping abx D/W RN dw family at b/s Argelia Becerra MD Jan 08, 2016 15:31
--- NOTE | 2016-01-08 16:44 | HHI.CCPN ---
Subjective Remarks/Hospital Course 55-year-old male brought by EMS with altered mental status. He has been confused for 2 days but this morning has been the worst. He has history of chronic opiate medications including methadone and morphine that he takes for pain management and hence they gave him Narcan IV which brought the GCS up to 13. The blood glucose was 74. He has open wounds from his right upper and bilateral lower extremities. He has history of hepatitis C. Last week he was pealing and eating shrimps. Bedside blood sugar was 76 in the ER. He was tachycardic in 1 teens and was intubated in the ED for airway protection. Admitted to ICU with sepsis due to Staph Aureus hand infection and E. Coli bacteriemia. 12/05 Patient remains sedated with Fentanyl and intubated. On Levophed 3 mics, Vasopressin 0.03 mics and Bicarb drip. T:99.8 TF placed on hold OGT to LIWS last night - gastric drainage 525ml overnight. 12/06 Patient is sedated with Fentanyl and intubated, On Levophed 3 mics, off vasopressin. Gastric output 400ml in 24 hrs. KUB abdomen yesterday mildly distended colon otherwise non specific KUB. 12/07 Patient is off sedation remains intubated tolerated CPAP for most day yesterday. Afebrile. on no drips, tolerating tube feeds. 12/08 Patient went to OR yesterday for debridement and irrigation of right forearm and wound VAC placement. Given 2U PRBC and 2u PLT yesterday and currently receiving 1of 2 u additional PRBC. Hgb 7.7, PLT 43 this morning. Patient also started on pressors now on Levophed 10 mics. Vasopressin 0.04 mics. On no sedation. 12/09 Patient remains intubated off pressors, Afebrile. Tolerating tube feeds. Afebrile. 12/10 Patient is sedated with Fentanyl and intubated. Awake and follows commands off sedation. Afebrile. 12/11 Patient had ?SVT overnight given Lopressor 2.5mg IV x1, Remains intubated and sedated with Fentanyl. Afebrile. Tolerating TF. 12/12 Patient spoked fever last night with T: 101.5, sedated with Fentanyl and intubated. 12/13 Patient had an episode of desaturation overnight required increase FIO2/ PEE now on ACV with RR 14, TV 550, PEEP: 12, FIO2 60% with sats 100% CT chest performed overnight showed b/l consolidation and small pleural effusion. Had T: 100.0 last night. 12/14 Tolerating PS 15/CPAP 10 FiO2 40% with rSBI 38, weaning. . Awake and alert , following commands. Hypotensive overnight and levophed restarted up to 12 mcg/ min. Nurse has been weaning throughout the day. Suspected adrenal insufficiency as he was on prednisone as outpatient for gout and has not been on stress dose steroids. Given decadron. 12/15 Transfused 1 unit PRBC for Hgb 7.0 yesterday, 1 unit PRBC for Hgb 6.6 today and now Hgb 8.3. Does not clinically have e/o active GI bleeding and wound vac output nonbloody. Stool 1500 output, C diff negative. No abdominal pain. Remains Awake and alert, remained on CPAP 10/5 last night and is now tolerating CPAP 5/5. 12/16: Extubated yesterday tolerating well. Breathing comfortably. Able to follow commands. UO 1.8 L in 24 hours. Na slightly increased to 153. 12/17: Significantly worse this AM. WBC up to 28 from 16. Hgb 5.2 from 7.9. tachycardic. pale this AM. states he feels tired. Continues on BiPAP. Plan for debridement of his arms today. LIJ CVL does not have any signs of overt infection. 12/18: Blood cell count continues to rise today to 30 from 28. Required 1 unit of blood for hemoglobin of 6.6 which improved to 7.7 this morning. However, patient remains tachycardic in the 120s and significantly pale. CT abdomen and pelvis ordered and pending. Tachypneic with respiratory rate in the 30s. Only small amount of dark tarry stool yesterday with approximately 300 cc of stool output. C. difficile toxin negative 3. After discussion with infectious disease, restart vancomycin, cefepime, Flagyl, micafungin. Horn cultures are pending. Per discussion with GI, will not scope as endoscopy is high risk given his tenuous respiratory status this point. Slightly worse hypernatremia as well as worsening acute kidney injury this morning. 12/19: POD 1 s/p ex-lap, washout for perforated ascending colon with extended right hemicolectomy, primary ileocolic anastamosis, open abdomen, septic shock, acute hypoxic and hypercarbic respiratory failure. Significantly critically ill overnight: required 6L ivf resuscitation, 1 unit prbc, norepinephrine, vasopressin, stress dose hydrocortisone. This morning, remains on high-dose vasopressors. still has large volume ivf requirement. Significant SIRS response. Vent requirements increasing with all this volume resuscitation, PEEP up to 10. He remains critically ill, and although I do believe we have surgical source control, I anticipate he will continue to clinically decline before he starts to make improvements. 12/20: Off pressors. follows commands on sedation holiday. +11L over last 3 days during acute illness, +22L since admission. We are going to have to get some of this volume back before we are able to close him given his severe anasarca. 12/21: Taken back to the OR yesterday afternoon for washout and completion colectomy. Postoperatively was significantly under resuscitated as well as had ongoing active oozing. Patient was coagulopathy. The patient was in distributive and hemorrhagic shock. The patient was given multiple units of blood products overnight. Patient was thrombocytopenic, hypofibrinogenemic, coagulopathic. Given significant volume of blood product resuscitation: 24h blood products: 13 prbc 8 ffp 2 plt 1 10-pack cryo This morning continues to have significant amount of bright red output out of his BEV and wound VAC, approximately 500 cc an hour out of his wound VAC, and approximately 75 an mils every 10 minutes out of a BEV. I discussed with surgery and we will correct his coagulopathy and plan to go back to the OR for exploration early this afternoon. 12/22: Clinically starting to improve hemodynamically. off vasopressors. Net+ 26L. CVP rising to 14. UOP adequate. Hgb 7 this AM. 12/23 Seen postop. Hypertensive, BP improved with additional pain medicine. Remains net positive but urine output excellent 3L in 24 hours. Remains on Lasix gtt. went to OR today status post wound VAC change and partial closure 12/24: Fascia was closed yesterday. Wound Vac in place. Remains sedated. -2L negative balance, but with increasing BUN/creat. Discontinue Bumex infusion, start scheduled Bumex 2 mg IV every 12 with IV albumin. 12/25: Overnight became hypotensive requiring Levophed to be restarted. Hemoglobin dropped to 4.1. Noted to have bloody drainage from G-tube and dorsal ileostomy with black stool output 12/26: s/p EGD yesterday-2 gastric ulcers bleeding, stomach a significant part had decreased discoloration indicating probable ischemia. s/p epi injection and cauterization. Continues to have coffee ground G tube output, black tarry Ileostomy output. Hemoglobin down to 6.4 getting 2 units of PRBC. GI recent recommending intervention radiology consult. 12/27: For trach today. Meds ordered. Hgb decline consistent with recent transfusions and senescent cells. 12/28: Trach clean, dry. Start SBTs. Check prealbumin. Continue TPN. 12/29: Looks in direction of voice. I have not seen more purposeful reactions. Line > 12 days old, replace today. Prealbumin 20 - good response to TPN. 12/30: Remains vented, encephalopathic, puss like drainage from left hand, WBC increased 01/01: no significant changes. continues to remain critically ill with minimal improvements over the last week. abdomen closed. still total body volume overloaded. 01/02: more awake today than yesterday. continues to be critically ill with minimal improvements overall. need to look towards placement. -900 yesterday. 01/03: up in chair yesterday. tolerated short run of SBT 15/5/40%. net euvolemic. wbc downtrending. 01/04: wbc slightly uptrended 33 from 30, more acidotic on BMP (14 from 20). Also spiking fevers to 102.3 despite tylenol. continues on broad spectrum abx. yesterday's cxr had what may be a new LLL infiltrate. today, though, he is following commands and more awake and alert. 01/05: LLL pna clinically and based on bronch. CT c/a/p done last night without any significant intra-abdominal change. small left pleural effusion which appears simple in nature, and LLL consolidation. ID broadened abx. today , wbc downtrending. culture data pending. Hgb 7 this AM. 01/06: Underwent exploratory laparotomy last night with findings of bleeding gastric ulcer which was oversewn by Dr. Verdin abdomen left open with wound VAC in place. Received 3 units PRBCs overnight. Remains on Wesley-Synephrine drip this morning for hypotension. Remains sedated, on mechanical ventilation. 01/07: Remains sedated, orally intubated on mechanical ventilation. For abdominal incision site closure today. Significant positive fluid balance over the last 2 days. Off pressors currently. Lasix to mobilize fluid. Objective Vital Signs Date Time Temp Pulse Resp B/P Pulse Ox O2 Delivery O2 Flow Rate FiO2 01/08/16 16:25 96 60 01/08/16 10:00 88 01/08/16 08:00 96.8 24 105/74 Intake and Output 01/07/16 01/07/16 01/08/16 08:00 16:00 00:00 Intake Total 5302 ml 3022 ml 3101 ml Output Total 180 ml 905 ml 922 ml Balance 5122 ml 2117 ml 2179 ml Result Diagram: 01/08/16 0430 01/08/16 0430 Imaging Last 48 hours Impressions Chest X-Ray 01/07/16 0000 Signed Impressions: Service Date/Time: Thursday, January 07, 2016 04:23 - CONCLUSION: Worsening consolidation or atelectasis at the left mid and lower lung. Some degree of left effusion may also be contributing to this. Arnaldo Reyes MD Chest X-Ray 01/06/16 0000 Signed Impressions: Service Date/Time: Wednesday, January 06, 2016 19:46 - CONCLUSION: 1. Basilar airspace disease improved from January 04. Tracheostomy and right central line in satisfactory position. Nomi Falcon MD Abdomen/Pelvis CT 01/06/16 0000 Signed Impressions: Service Date/Time: Wednesday, January 06, 2016 22:07 - CONCLUSION: 1. Over the last day there is development of a large mass in the left upper quadrant measuring up to 18 x 13 cm which appears to be associated with the stomach. The mass is characterized by somewhat concentric areas of decreased and increased attenuation with multiple locules of air. Primary differential diagnosis is hemorrhage into the gastric wall with gastric pneumatosis and possibly gastric ischemia. Gastrostomy is again noted anteriorly. 2. Remainder the exam is relatively stable with drainage tube left upper quadrant, splenectomy, bilateral effusions, feeding jejunostomy and drain within the pelvis. There is also diffuse anasarca and nonobstructing renal calculi. Nomi Falcon MD Last Impressions Chest X-Ray 12/17/15 0600 Signed Impressions: Service Date/Time: Thursday, December 17, 2015 03:25 - CONCLUSION: Persistent left lower lobe consolidation. Osmar Alegria MD Chest CT 12/14/15 0000 Signed Impressions: Service Date/Time: Monday, December 14, 2015 06:12 - CONCLUSION: 1. Cardiomegaly with bilateral consolidation, likely CHF. Pneumonia cannot be excluded. 2. Small right pleural effusion. Wojciech Lockhart MD Abdomen X-Ray 12/06/15 0000 Signed Impressions: Service Date/Time: November 09:53 - CONCLUSION: Nonspecific KUB. Air is seen within a mildly distended colon but contrast is clearly seen in the rectum. Arnaldo Reyes MD Abdomen/Pelvis CT 12/04/15 0000 Signed Impressions: Service Date/Time: Friday, December 04, 2015 16:24 - CONCLUSION: 1. Mildly distended small bowel in the mid and lower abdomen. Contrast is clearly seen extending into the distal small bowel and ascending colon so a complete obstruction is not seen. A transition point is not seen. This pattern likely represents an ileus versus a partial obstruction. 2. Multiple nonobstructing renal stones. 3. Abnormal appearance of the spleen which appears to represent a splenule. It could be correlated if the patient has had either primary splenic removal or splenic injury and this is what is either left of the spleen or a developing splenule. This is likely of no significance. 4. Mild ascites. 5. Increased density within the gallbladder representing either tumefactive sludge or noncalcified stones. 6. Mild bilateral pleural effusions with prominent areas of lower lobe atelectasis or consolidation at the bases bilaterally. 7. Subacute to chronic bilateral rib fractures and multiple compression fractures in the lower thoracic and lumbar spine as described above. The patient does have a prior CT examination from 08/26/2014. All the compression deformities described above are new when compared to that scan. Arnaldo Reyes MD Head CT 12/02/15 1013 Signed Impressions: Service Date/Time: Wednesday, December 02, 2015 11:00 - CONCLUSION: 1. No intracranial abnormality is seen. 2. Air-fluid level in the right maxillary sinus. Arnaldo Reyes MD Objective Remarks GENERAL: Middle-aged male, lying in bed, trached. remains critically ill. HEENT: NCAT. mucous membranes moist. NECK: trach in place. obese neck. difficult to assess JVD. right IJ triple lumen catheter in place, site clean RESPIRATORY: Breath sounds equal bilaterally. coarse crackles b/l. CARDIOVASCULAR: Tachycardic, regular rhythm without murmurs, rubs. GASTROINTESTINAL: Abdomen fascia is closed midline wound vac in place. nontender, nondistended. no guarding. MUSCULOSKELETAL: Generalized anasarca. Multiple open wounds in the lower extremity. RUE - with wound vac in place. L upper extremity dressing in place. 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 for sedation/analgesia. Titrate off Versed as tolerated. - fentanyl patch 75mcg/h q3d for long acting pain control. - liquid tylenol 650mg per tube q6h. - Dilaudid 2mg iv q4h prn for breakthrough pain. - ketamine drip d/cd 12/22. - oxycodone 20mg per tube q4h scheduled to help wean off fentanyl infusion. Respiratory Acute respiratory failure-extubated 12/16/15, reintubated for surgery 12/18 Acute hypoxic and hypercarbic respiratory failure Acute healthcare associated pneumonia- resolved NIGEL on home CPAP - Extubated 12/15 - reintubated for emergent ex-lap 12/18. - Tracheostomy 12/27 - Vent bundle. Head of bed at 30 degrees. Nebs q6h and q2h prn. - Daily CPap trials held in view of emergent surgery on 01/05 and now open abdomen awaiting closure CV Hemorrhagic shock- resolved Septic Shock- resolved Volume overload - keep map > 65 mmHg. - Cortisol level 14 on 12/14 - Prednisone held. Continue hydrocortisone 50mg Q8hrly - Echo 12/07 EF 65-70%, grade I diastolic dysfunction Renal: DEIRDRE Hypernatremia - stopped bicarbonate drip 01/07, strict intake output, monitor and replete electrolites, follow BUN/creatinine. - On diuretics to mobilize fluid. FEN/GI Acute GIB, hemorrhagic shock Perforated right colon with colitis s/p ex-lap, extended right hemicolectomy with primary ileocolic anastamosis, washout, open abdomen (12/18) s/p Elap 01/05 for bleeding gastric ulcer Acute protein calorie malnutrition- severe Hypokalemia Total body volume overload Intravascular hypervolemia - Protonix gtt-switch to BID if OK with GI - EGD 12/26/15 showed 2 large gastric ulcers with active bleeding status post epinephrine infusion and cauterization - ICU electrolyte protocol - Daily CMP - OR on 12/24 with Removal of VAC, washout, pancreatic drain and pelvic drain placement, gastrostomy, feeding jejunostomy and closure of abdomen with application of VAC device in the subcutaneous tissue. - TFs via jejunostomy to be resumed when OK with surgery - off TPN 01/01. - on full TF at goal - held 01/05 for bleeding gastric ulcer s/p Elap. Heme: Acute Anemia secondary to acute blood loss Thrombocytopenia Hypofibrinogenemia secondary to consumption and acute blood loss Coagulopathy secondary to consumption and acute blood loss --monitor CBC, qday H/H. --Hep PLT ab negative on 12/03 --Platelets FFP fibrinogen as needed --Trend Hgb - Ferrous Sulfate TID - transfused 3 units PRBCs 01/05- ID Severe sepsis Necrotizing Fascitis - MSSA on wound culture 12/07. Ecoli bacteremia 12/01 MSSA bacteremia 12/05. Cleared on f/u blood culture 12/07, 12/12. Leukocytosis Sepsis of Intra-abdominal origin. C. difficile toxic megacolon --Debridement 12/01 p.m at bedside by Dr Pedro and Dr. Hartmann --R hand, forearm and olecranon bursa I and D and Wound vac 12/07 Dr Chavez. -- IV cefepime,flagyl IV, micafungin. PO/intracolonic treatment for C.diff is contraindicated per --12/17 blood cultures: NGTD 12/17 central line culture: NGTD 12/17 urine cultures: NGTD 12/17 sputum cultures: NGTD C. difficile toxin 12/17: Negative (3rd negative toxin screen) 01/04: horn culture, bronch with BAL, 01/04: CT chest/abd/pelvis without contrast: LLL consolidation, otherwise unchanged. 01/04: clinically LLL VAP. --ID Dr. Becerra Endocrine: Hyperglycemia of Critical Illness Diabetes - off Insulin drip - Moderate SSI - Levemir BID on hold. - Prednisone 10mg po daily. slow taper started however pt back on pressors after Elap on 01/06 so starting hydrocortisone 50 mg IV every 8 hourly on 01/06 Prophylaxis: GI Prophylaxis: -- Protonix IV BID DVT Prophylaxis: - SCDs Resume subcutaneous heparin when okay with general surgery Lines: -- Sandoval -- right axillary arterial line 01/04 -- right IJ TLC 01/04 Dispo: -- He remains in the [facility] and severely critically ill, ventilator weaning failure , ongoing sepsis. Critical Care: The total critical care time was 45 minutes. Time to perform other separately billable procedures was not included in the critical care time. D/W Dr. Verdin. Problem Qualifiers (1) Respiratory failure: Qualified Code: J96.00 - Acute respiratory failure, unspecified whether with hypoxia or hypercapnia (2) Altered mental status: Qualified Code: R41.0 - Delirium (3) Sepsis: Qualified Code: A41.9 - Sepsis, due to unspecified organism Christopher Clark MD Jan 08, 2016 16:44
[2016-01-08] MEDS: MIDAZOLAM 100 MG/ML INJ 100 ML IV SCH (18:51)
[2016-01-08] MEDS: fentaNYL DRIP 250 ML IV SCH (18:53)
[2016-01-08] MEDS: CHLORHEXIDINE 0.12% (ORAL KIT) 15 ML CUP MT SCH (22:56)
[2016-01-08] MEDS: VASOPRESSIN INJ 40 UNITS in DEXTROSE 5% IN WATER 100ML INJ 98 ML IV SCH ×2 (23:33)
[2016-01-09] VITALS (21 sets, daily range): BP systolic 106–145; BP diastolic 72–93; PULSE 80–105; RESP 10–24; TEMP 95.2–99.2; O2SAT 94–100
[2016-01-09] MEDS: PANTOPRAZOLE INJ 80 MG in SODIUM CHLORIDE 0.9% INJ 100 ML IV SCH (01:01)
[2016-01-09] MEDS: oxyCODONE HCL ORAL CONC 20 MG/ML SYRINGE PO SCH ×4 (01:22→13:00)
[2016-01-09] MEDS: CHLORHEXIDINE GLUCONATE 2 % 1 PACK (2 CLOTHS) TOP SCH (02:40)
[2016-01-09 03:32] LABS: HEMATOCRIT 27.5 % (39.0-51.0); MEAN CELL VOLUME 84.5 FL (80.0-100.0); MEAN CORPUSCULAR HEMOGLOBIN 30.1 PG (27.0-34.0); MEAN CORPUSCULAR HGB CONC 35.6 % (32.0-36.0); PLATELET COUNT 110 TH/MM3 (150-450); RED BLOOD COUNT 3.25 MIL/MM3 (4.50-5.90); RED CELL DISTRIBUTION WIDTH 14.9 % (11.6-17.2); REVIEW FLAG FINAL; WHITE BLOOD COUNT 25.2 TH/MM3 (4.0-11.0)
[2016-01-09 03:41] LABS: BICARBONATE 25.5 MEQ/L (21.0-32.0); POTASSIUM 3.1 MEQ/L (3.5-5.1)
[2016-01-09 03:55] LABS: CALCIUM-PROTEIN CORRECTED 8.5 MG/DL (8.5-10.1)
[2016-01-09] MEDS: metroNIDAZOLE 500 MG INJ 100 ML IV SCH ×3 (04:06→19:57)
[2016-01-09] MEDS: POTASSIUM CHLOR 40 MEQ PREMIX 100 ML IV PRN ×2 (04:34→09:20)
[2016-01-09] MEDS: ACETAMINOPHEN 650 MG/20.3 ML UDC PO SCH ×3 (05:15→23:37)
[2016-01-09] MEDS: INSULIN ASPART SUPPLEMENTAL SCALE SQ SCH ×4 (05:51→23:38)
[2016-01-09] MEDS: METOPROLOL TARTRATE 5 MG/5 ML VIAL IV PUSH SCH ×4 (05:51→23:38)
--- NOTE | 2016-01-09 06:43 | HHI.PR ---
Immediate Post Op Note Procedure Date: Jan 09, 2016 Pre Op Diagnosis: open abdomen Post Op Diagnosis: same Surgeon: Bebo Verdin MD Creative Coordinator(s): see OR sheet Procedure: Planed re-exploration, ex lap, closure of open abdomen Findings: viable intestine, no bleeding Complications: none Specimen(s) removed: none Estimated blood loss: 5 Anesthesia: General Drains: Other (HELENA) IVF (600) Patient to: ISC Patient Condition: Fair Bebo Verdin MD Jan 09, 2016 06:43
[2016-01-09] MEDS: HYDROCORTISONE SOD SUCCINATE 100 MG VIAL IV PUSH SCH ×3 (07:56→20:40)
[2016-01-09] MEDS: CEFEPIME INJ 2,000 MG in SODIUM CHLORIDE 0.9% INJ 100 ML IV SCH (07:56)
[2016-01-09] MEDS: POVIDONE IODINE 10% OINT 30 GM TUBE TOPICAL SCH (07:57)
[2016-01-09] MEDS: NEOMYCIN/POLYMYXIN/BACITRACIN OINT 15 GM TUBE TOPICAL SCH ×2 (07:57→19:59)
[2016-01-09] MEDS: FUROSEMIDE 20 MG/2 ML VIAL IV PUSH SCH (07:57)
[2016-01-09] MEDS: CHLORHEXIDINE 0.12% (ORAL KIT) 15 ML CUP MT SCH ×2 (08:00→19:58)
[2016-01-09 10:21] LABS: BLOOD GAS BASE EXCESS -0.9 mmol/L (-2-2); BLOOD GAS CARBOXYHEMOGLOBIN 0.9 % (0-4); BLOOD GAS HCO3 23 mmol/L (22-26); BLOOD GAS METHEMOGLOBIN 0.9 % (0-2); BLOOD GAS O2 HGB SATURATION 96 % (90-100); BLOOD GAS PCO2 35 mmHg (38-42); BLOOD GAS PO2 100 mmHg (61-120); BLOOD GAS TOTAL HGB 10.3 G/DL (12.0-16.0); CRITICAL VALUE NO; DRAW SITE ALINE; FIO2 40 %; NUMBER OF ARTERIAL PUNCTURES 0; OXYGEN DEVICE VENTILATOR; STAT YES; TEMP CORR TO 98.6; ULNAR PULSE PRESENT; VENT SETTINGS AC/14/500/PEEP5
[2016-01-09] MEDS: fentaNYL 75 MCG/HR PATCH TD SCH (11:53)
[2016-01-09] MEDS: REMOVE OLD PATCH TD SCH (11:53)
[2016-01-09] MEDS ORDERED: VANCOMYCIN INJ 1,250 MG in SODIUM CHLOR 0.9% 250 ML INJ 250 ML IV SCH (14:00)
[2016-01-09] MEDS: MICAFUNGIN INJ 150 MG in SODIUM CHLORIDE 0.9% INJ 100 ML IV SCH (14:27)
--- NOTE | 2016-01-09 16:56 | HHI.CCPN ---
Subjective Remarks/Hospital Course 55-year-old male brought by EMS with altered mental status. He has been confused for 2 days but this morning has been the worst. He has history of chronic opiate medications including methadone and morphine that he takes for pain management and hence they gave him Narcan IV which brought the GCS up to 13. The blood glucose was 74. He has open wounds from his right upper and bilateral lower extremities. He has history of hepatitis C. Last week he was pealing and eating shrimps. Bedside blood sugar was 76 in the ER. He was tachycardic in 1 teens and was intubated in the ED for airway protection. Admitted to ICU with sepsis due to Staph Aureus hand infection and E. Coli bacteriemia. 12/05 Patient remains sedated with Fentanyl and intubated. On Levophed 3 mics, Vasopressin 0.03 mics and Bicarb drip. T:99.8 TF placed on hold OGT to LIWS last night - gastric drainage 525ml overnight. 12/06 Patient is sedated with Fentanyl and intubated, On Levophed 3 mics, off vasopressin. Gastric output 400ml in 24 hrs. KUB abdomen yesterday mildly distended colon otherwise non specific KUB. 12/07 Patient is off sedation remains intubated tolerated CPAP for most day yesterday. Afebrile. on no drips, tolerating tube feeds. 12/08 Patient went to OR yesterday for debridement and irrigation of right forearm and wound VAC placement. Given 2U PRBC and 2u PLT yesterday and currently receiving 1of 2 u additional PRBC. Hgb 7.7, PLT 43 this morning. Patient also started on pressors now on Levophed 10 mics. Vasopressin 0.04 mics. On no sedation. 12/09 Patient remains intubated off pressors, Afebrile. Tolerating tube feeds. Afebrile. 12/10 Patient is sedated with Fentanyl and intubated. Awake and follows commands off sedation. Afebrile. 12/11 Patient had ?SVT overnight given Lopressor 2.5mg IV x1, Remains intubated and sedated with Fentanyl. Afebrile. Tolerating TF. 12/12 Patient spoked fever last night with T: 101.5, sedated with Fentanyl and intubated. 12/13 Patient had an episode of desaturation overnight required increase FIO2/ PEE now on ACV with RR 14, TV 550, PEEP: 12, FIO2 60% with sats 100% CT chest performed overnight showed b/l consolidation and small pleural effusion. Had T: 100.0 last night. 12/14 Tolerating PS 15/CPAP 10 FiO2 40% with rSBI 38, weaning. . Awake and alert , following commands. Hypotensive overnight and levophed restarted up to 12 mcg/ min. Nurse has been weaning throughout the day. Suspected adrenal insufficiency as he was on prednisone as outpatient for gout and has not been on stress dose steroids. Given decadron. 12/15 Transfused 1 unit PRBC for Hgb 7.0 yesterday, 1 unit PRBC for Hgb 6.6 today and now Hgb 8.3. Does not clinically have e/o active GI bleeding and wound vac output nonbloody. Stool 1500 output, C diff negative. No abdominal pain. Remains Awake and alert, remained on CPAP 10/5 last night and is now tolerating CPAP 5/5. 12/16: Extubated yesterday tolerating well. Breathing comfortably. Able to follow commands. UO 1.8 L in 24 hours. Na slightly increased to 153. 12/17: Significantly worse this AM. WBC up to 28 from 16. Hgb 5.2 from 7.9. tachycardic. pale this AM. states he feels tired. Continues on BiPAP. Plan for debridement of his arms today. LIJ CVL does not have any signs of overt infection. 12/18: Blood cell count continues to rise today to 30 from 28. Required 1 unit of blood for hemoglobin of 6.6 which improved to 7.7 this morning. However, patient remains tachycardic in the 120s and significantly pale. CT abdomen and pelvis ordered and pending. Tachypneic with respiratory rate in the 30s. Only small amount of dark tarry stool yesterday with approximately 300 cc of stool output. C. difficile toxin negative 3. After discussion with infectious disease, restart vancomycin, cefepime, Flagyl, micafungin. Horn cultures are pending. Per discussion with GI, will not scope as endoscopy is high risk given his tenuous respiratory status this point. Slightly worse hypernatremia as well as worsening acute kidney injury this morning. 12/19: POD 1 s/p ex-lap, washout for perforated ascending colon with extended right hemicolectomy, primary ileocolic anastamosis, open abdomen, septic shock, acute hypoxic and hypercarbic respiratory failure. Significantly critically ill overnight: required 6L ivf resuscitation, 1 unit prbc, norepinephrine, vasopressin, stress dose hydrocortisone. This morning, remains on high-dose vasopressors. still has large volume ivf requirement. Significant SIRS response. Vent requirements increasing with all this volume resuscitation, PEEP up to 10. He remains critically ill, and although I do believe we have surgical source control, I anticipate he will continue to clinically decline before he starts to make improvements. 12/20: Off pressors. follows commands on sedation holiday. +11L over last 3 days during acute illness, +22L since admission. We are going to have to get some of this volume back before we are able to close him given his severe anasarca. 12/21: Taken back to the OR yesterday afternoon for washout and completion colectomy. Postoperatively was significantly under resuscitated as well as had ongoing active oozing. Patient was coagulopathy. The patient was in distributive and hemorrhagic shock. The patient was given multiple units of blood products overnight. Patient was thrombocytopenic, hypofibrinogenemic, coagulopathic. Given significant volume of blood product resuscitation: 24h blood products: 13 prbc 8 ffp 2 plt 1 10-pack cryo This morning continues to have significant amount of bright red output out of his BEV and wound VAC, approximately 500 cc an hour out of his wound VAC, and approximately 75 an mils every 10 minutes out of a BEV. I discussed with surgery and we will correct his coagulopathy and plan to go back to the OR for exploration early this afternoon. 12/22: Clinically starting to improve hemodynamically. off vasopressors. Net+ 26L. CVP rising to 14. UOP adequate. Hgb 7 this AM. 12/23 Seen postop. Hypertensive, BP improved with additional pain medicine. Remains net positive but urine output excellent 3L in 24 hours. Remains on Lasix gtt. went to OR today status post wound VAC change and partial closure 12/24: Fascia was closed yesterday. Wound Vac in place. Remains sedated. -2L negative balance, but with increasing BUN/creat. Discontinue Bumex infusion, start scheduled Bumex 2 mg IV every 12 with IV albumin. 12/25: Overnight became hypotensive requiring Levophed to be restarted. Hemoglobin dropped to 4.1. Noted to have bloody drainage from G-tube and dorsal ileostomy with black stool output 12/26: s/p EGD yesterday-2 gastric ulcers bleeding, stomach a significant part had decreased discoloration indicating probable ischemia. s/p epi injection and cauterization. Continues to have coffee ground G tube output, black tarry Ileostomy output. Hemoglobin down to 6.4 getting 2 units of PRBC. GI recent recommending intervention radiology consult. 12/27: For trach today. Meds ordered. Hgb decline consistent with recent transfusions and senescent cells. 12/28: Trach clean, dry. Start SBTs. Check prealbumin. Continue TPN. 12/29: Looks in direction of voice. I have not seen more purposeful reactions. Line > 12 days old, replace today. Prealbumin 20 - good response to TPN. 12/30: Remains vented, encephalopathic, puss like drainage from left hand, WBC increased 01/01: no significant changes. continues to remain critically ill with minimal improvements over the last week. abdomen closed. still total body volume overloaded. 01/02: more awake today than yesterday. continues to be critically ill with minimal improvements overall. need to look towards placement. -900 yesterday. 01/03: up in chair yesterday. tolerated short run of SBT 15/5/40%. net euvolemic. wbc downtrending. 01/04: wbc slightly uptrended 33 from 30, more acidotic on BMP (14 from 20). Also spiking fevers to 102.3 despite tylenol. continues on broad spectrum abx. yesterday's cxr had what may be a new LLL infiltrate. today, though, he is following commands and more awake and alert. 01/05: LLL pna clinically and based on bronch. CT c/a/p done last night without any significant intra-abdominal change. small left pleural effusion which appears simple in nature, and LLL consolidation. ID broadened abx. today , wbc downtrending. culture data pending. Hgb 7 this AM. 01/06: Underwent exploratory laparotomy last night with findings of bleeding gastric ulcer which was oversewn by Dr. Verdin abdomen left open with wound VAC in place. Received 3 units PRBCs overnight. Remains on Wesley-Synephrine drip this morning for hypotension. Remains sedated, on mechanical ventilation. 01/07: Remains sedated, on mechanical ventilation. For abdominal incision site closure today. Significant positive fluid balance over the last 2 days. Off pressors currently. Lasix to mobilize fluid. 01/08: Remains sedated, on mechanical ventilation via tracheostomy. Underwent abdominal incision site closure this morning. Remains off pressors. Anasarca noted. Blood cultures from 01/04 growing Nava parapsilosis. Objective Vital Signs Date Time Temp Pulse Resp B/P Pulse Ox O2 Delivery O2 Flow Rate FiO2 01/09/16 16:10 97.3 99 22 145/93 97 01/09/16 15:41 40 Intake and Output 01/08/16 01/08/16 01/09/16 08:00 16:00 00:00 Intake Total 1938 ml 841 ml 422 ml Output Total 995 ml 785 ml 905 ml Balance 943 ml 56 ml -483 ml Result Diagram: 01/09/16 0305 01/09/16 0305 Other Results Laboratory Tests Test 01/09/16 01/09/16 03:05 10:17 White Blood Count 25.2 TH/MM3 Red Blood Count 3.25 MIL/MM3 Hemoglobin 9.8 GM/DL Hematocrit 27.5 % Mean Corpuscular Volume 84.5 FL Mean Corpuscular Hemoglobin 30.1 PG Mean Corpuscular Hemoglobin 35.6 % Concent Red Cell Distribution Width 14.9 % Platelet Count 110 TH/MM3 Mean Platelet Volume 11.1 FL Sodium Level 147 MEQ/L Potassium Level 3.1 MEQ/L Chloride Level 110 MEQ/L Carbon Dioxide Level 25.5 MEQ/L Anion Gap 12 MEQ/L Blood Urea Nitrogen 53 MG/DL Creatinine 1.39 MG/DL Estimat Glomerular Filtration 53 ML/MIN Rate Random Glucose 87 MG/DL Calcium Level 6.7 MG/DL Protein Corrected Calcium 8.5 MG/DL Total Protein 3.8 GM/DL Random Vancomycin Level 22.5 COMMENT Blood Gas Puncture Site STACI Blood Gas Patient Temperature 98.6 Blood Gas HCO3 23 mmol/L Blood Gas Base Excess -0.9 mmol/L Blood Gas Oxygen Saturation 96 % Arterial Blood pH 7.43 Arterial Blood Partial 35 mmHg Pressure CO2 Arterial Blood Partial 100 mmHg Pressure O2 Arterial Blood Oxygen Content 14.0 Vol % Arterial Blood 0.9 % Carboxyhemoglobin Arterial Blood Methemoglobin 0.9 % Blood Gas Hemoglobin 10.3 G/DL Oxygen Delivery Device VENTILATOR Blood Gas Ventilator Setting AC/14/500/PEEP5 Blood Gas Inspired Oxygen 40 % Imaging Last 48 hours Impressions Chest X-Ray 01/07/16 0000 Signed Impressions: Service Date/Time: Thursday, January 07, 2016 04:23 - CONCLUSION: Worsening consolidation or atelectasis at the left mid and lower lung. Some degree of left effusion may also be contributing to this. Arnaldo Reyes MD Chest X-Ray 01/06/16 0000 Signed Impressions: Service Date/Time: Wednesday, January 06, 2016 19:46 - CONCLUSION: 1. Basilar airspace disease improved from January 04. Tracheostomy and right central line in satisfactory position. Nomi Falcon MD Abdomen/Pelvis CT 01/06/16 0000 Signed Impressions: Service Date/Time: Wednesday, January 06, 2016 22:07 - CONCLUSION: 1. Over the last day there is development of a large mass in the left upper quadrant measuring up to 18 x 13 cm which appears to be associated with the stomach. The mass is characterized by somewhat concentric areas of decreased and increased attenuation with multiple locules of air. Primary differential diagnosis is hemorrhage into the gastric wall with gastric pneumatosis and possibly gastric ischemia. Gastrostomy is again noted anteriorly. 2. Remainder the exam is relatively stable with drainage tube left upper quadrant, splenectomy, bilateral effusions, feeding jejunostomy and drain within the pelvis. There is also diffuse anasarca and nonobstructing renal calculi. Nomi Falcon MD Last Impressions Chest X-Ray 12/17/15 0600 Signed Impressions: Service Date/Time: Thursday, December 17, 2015 03:25 - CONCLUSION: Persistent left lower lobe consolidation. Osmar Alegria MD Chest CT 12/14/15 0000 Signed Impressions: Service Date/Time: Monday, December 14, 2015 06:12 - CONCLUSION: 1. Cardiomegaly with bilateral consolidation, likely CHF. Pneumonia cannot be excluded. 2. Small right pleural effusion. Wojciech Lockhart MD Abdomen X-Ray 12/06/15 0000 Signed Impressions: Service Date/Time: November 09:53 - CONCLUSION: Nonspecific KUB. Air is seen within a mildly distended colon but contrast is clearly seen in the rectum. Arnaldo Reyes MD Abdomen/Pelvis CT 12/04/15 0000 Signed Impressions: Service Date/Time: Friday, December 04, 2015 16:24 - CONCLUSION: 1. Mildly distended small bowel in the mid and lower abdomen. Contrast is clearly seen extending into the distal small bowel and ascending colon so a complete obstruction is not seen. A transition point is not seen. This pattern likely represents an ileus versus a partial obstruction. 2. Multiple nonobstructing renal stones. 3. Abnormal appearance of the spleen which appears to represent a splenule. It could be correlated if the patient has had either primary splenic removal or splenic injury and this is what is either left of the spleen or a developing splenule. This is likely of no significance. 4. Mild ascites. 5. Increased density within the gallbladder representing either tumefactive sludge or noncalcified stones. 6. Mild bilateral pleural effusions with prominent areas of lower lobe atelectasis or consolidation at the bases bilaterally. 7. Subacute to chronic bilateral rib fractures and multiple compression fractures in the lower thoracic and lumbar spine as described above. The patient does have a prior CT examination from 08/26/2014. All the compression deformities described above are new when compared to that scan. Arnalod Reyes MD Head CT 12/02/15 1013 Signed Impressions: Service Date/Time: Wednesday, December 02, 2015 11:00 - CONCLUSION: 1. No intracranial abnormality is seen. 2. Air-fluid level in the right maxillary sinus. Arnaldo Reyes MD Objective Remarks GENERAL: Middle-aged male, lying in bed, trached. remains critically ill. HEENT: NCAT. mucous membranes moist. NECK: trach in place. obese neck. difficult to assess JVD. right IJ triple lumen catheter in place, site clean RESPIRATORY: Breath sounds equal bilaterally. coarse crackles b/l. CARDIOVASCULAR: Tachycardic, regular rhythm without murmurs, rubs. GASTROINTESTINAL: Reena dressing over midline incision site. BEV drains in place , J tube in place, nondistended. BS not appreciated. MUSCULOSKELETAL: Generalized anasarca. Multiple open wounds in the lower extremity. RUE - with wound vac in place. L upper extremity dressing in place. 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 for sedation/analgesia. Titrate off as tolerated. - fentanyl patch 75mcg/h q3d for long acting pain control. - liquid tylenol 650mg per tube q6h. - Dilaudid 2mg iv q4h prn for breakthrough pain. - ketamine drip d/cd 12/22. - oxycodone 20mg per tube q4h scheduled to help wean off fentanyl infusion. Respiratory Acute respiratory failure-extubated 12/16/15, reintubated for surgery 12/18 Acute hypoxic and hypercarbic respiratory failure Acute healthcare associated pneumonia- resolved NIGEL on home CPAP - Extubated 12/15 - reintubated for emergent ex-lap 12/18. - Tracheostomy 12/27 - Vent bundle. Head of bed at 30 degrees. Nebs q6h and q2h prn. - Daily CPap trials held in view of emergent surgery on 01/05 and now open abdomen s/p closure on 01/08 CV Hemorrhagic shock- resolved Septic Shock- resolved Volume overload - keep map > 65 mmHg. - Cortisol level 14 on 12/14 - Prednisone held. Continue hydrocortisone 50mg Q8hrly - Echo 12/07 EF 65-70%, grade I diastolic dysfunction Renal: DEIRDRE Hypernatremia - stopped bicarbonate drip 01/07, strict intake output, monitor and replete electrolites, follow BUN/creatinine. - On diuretics to mobilize fluid. FEN/GI Acute GIB, hemorrhagic shock Perforated right colon with colitis s/p ex-lap, extended right hemicolectomy with primary ileocolic anastamosis, washout, open abdomen (12/18) s/p Elap 01/05 for bleeding gastric ulcer Acute protein calorie malnutrition- severe Hypokalemia Total body volume overload Intravascular hypervolemia - Protonix BID - EGD 12/26/15 showed 2 large gastric ulcers with active bleeding status post epinephrine infusion and cauterization - ICU electrolyte protocol - Daily CMP - OR on 12/24 with Removal of VAC, washout, pancreatic drain and pelvic drain placement, gastrostomy, feeding jejunostomy and closure of abdomen with application of VAC device in the subcutaneous tissue. - TFs via jejunostomy to be resumed when OK with surgery - off TPN 01/01. TPN being resumed 01/08 - on full TF at goal - held 01/05 for bleeding gastric ulcer s/p Elap. J tube trophic feeds to be resumed 01/09 Heme: Acute Anemia secondary to acute blood loss Thrombocytopenia Hypofibrinogenemia secondary to consumption and acute blood loss Coagulopathy secondary to consumption and acute blood loss --monitor CBC, qday H/H. --Hep PLT ab negative on 12/03 --Platelets FFP fibrinogen as needed --Trend Hgb - Ferrous Sulfate TID - transfused 3 units PRBCs 01/05- ID Severe sepsis Necrotizing Fascitis - MSSA on wound culture 12/07. Ecoli bacteremia 12/01 MSSA bacteremia 12/05. Cleared on f/u blood culture 12/07, 12/12. Leukocytosis Sepsis of Intra-abdominal origin. C. difficile toxic megacolon --Debridement 12/01 p.m at bedside by Dr Pedro and Dr. Hartmann --R hand, forearm and olecranon bursa I and D and Wound vac 12/07 Dr Chavez. -- IV cefepime,flagyl IV, micafungin per ID. Amphotericin B started by ID on . Discussed with ID on 01/08. Nava and blood probably from an intra- abdominal source. Repeat blood cultures sent 01/08. --12/17 blood cultures: NGTD 12/17 central line culture: NGTD 12/17 urine cultures: NGTD 12/17 sputum cultures: NGTD C. difficile toxin 12/17: Negative (3rd negative toxin screen) -01/04 Blood culture with nava parapsilosis 01/04: horn culture, bronch with BAL, 01/04: CT chest/abd/pelvis without contrast: LLL consolidation, otherwise unchanged. 01/04: clinically LLL VAP. --ID Dr. Becerra Endocrine: Hyperglycemia of Critical Illness Diabetes - off Insulin drip - Moderate SSI - Levemir BID on hold. - Prednisone 10mg po daily. slow taper started however pt back on pressors after Elap on 01/06 so starting hydrocortisone 50 mg IV every 8 hourly on 01/06 Prophylaxis: GI Prophylaxis: -- Protonix IV BID DVT Prophylaxis: - SCDs Resume subcutaneous heparin when okay with general surgery Lines: -- Sandoval -- right axillary arterial line 01/04 -- right IJ TLC 01/04 Dispo: -- He remains in the [facility] and severely critically ill, ventilator weaning failure , ongoing sepsis. Critical Care: The total critical care time was 45 minutes. Time to perform other separately billable procedures was not included in the critical care time. D/W Dr. Verdin. Problem Qualifiers (1) Respiratory failure: Qualified Code: J96.00 - Acute respiratory failure, unspecified whether with hypoxia or hypercapnia (2) Altered mental status: Qualified Code: R41.0 - Delirium (3) Sepsis: Qualified Code: A41.9 - Sepsis, due to unspecified organism Christopher Clark MD Jan 09, 2016 16:56
[2016-01-09] MEDS ORDERED: AMPHOTERICIN B LIPOSOME IV SCH ×2 (17:00)
[2016-01-09] MEDS ORDERED: WATE IV SCH ×2 (17:00)
[2016-01-09] MEDS ORDERED: DEXTROSE 5% IV SCH ×2 (17:00)
--- NOTE | 2016-01-09 18:42 | HHI.IDPN ---
Subjective Subjective Remarks Delayed entry - pt was seen around 1430 today Pt is growing yeast from 01/04 blood clx He is sp surgery off pressors afebrile Antibiotics cefepime IV, IV flagyl micafungin IV IV Vancomycin Lines RSC TLC Past Medical History RA HCV sp splenectomy Allergies: Coded Allergies: Compazine (Verified Allergy, Severe, VOMITING, RASH, 08/26/14) SLURRED SPEECH, MIGRAINES Demerol (Verified Allergy, Severe, VOMITING, 08/26/14) Levaquin (Verified Allergy, Severe, 08/26/14) Penicillin (Verified Allergy, Severe, Rash, 08/26/14) Phenergan (Verified Allergy, Severe, VOMITING, 08/26/14) Uncoded Allergies: ANTI-CONVULSIVES (Allergy, Severe, MIGRAINES, SLURRED SPEECH,, 01/23/14) Objective . Vital Signs Date Time Temp Pulse Resp B/P Pulse Ox O2 Delivery O2 Flow Rate FiO2 01/09/16 16:10 97.3 99 22 145/93 97 01/09/16 16:00 99 01/09/16 15:41 100 40 01/09/16 14:00 80 01/09/16 12:07 97 40 01/09/16 12:02 95 40 01/09/16 12:00 93 01/09/16 12:00 40 01/09/16 12:00 99.2 93 10 115/79 94 01/09/16 10:00 105 01/09/16 08:00 92 01/09/16 08:00 95.2 92 15 117/87 97 01/09/16 08:00 40 01/09/16 07:41 95 40 01/09/16 05:35 100 100 01/09/16 04:45 100 40 01/09/16 04:00 98.1 91 24 124/80 100 01/09/16 04:00 60 01/09/16 04:00 91 01/09/16 02:00 89 01/09/16 01:43 99 40 01/09/16 00:00 97.9 88 24 106/72 96 01/09/16 00:00 88 01/09/16 00:00 60 01/08/16 22:10 98 50 01/08/16 22:00 88 01/08/16 20:13 96 60 01/08/16 20:00 60 01/08/16 20:00 89 01/08/16 20:00 98.6 88 24 114/76 96 01/08/16 01/08/16 01/09/16 15:00 23:00 07:00 Intake Total 841 ml 422 ml 534 ml Output Total 785 ml 905 ml 700 ml Balance 56 ml -483 ml -166 ml IV Total 741 ml 302 ml 414 ml Tube Irrigant 100 ml 120 ml 120 ml Output Urine Total 500 ml 450 ml 275 ml Stool Total 20 ml 50 ml 25 ml Gastric Drainage Total 0 ml 100 ml 100 ml Drainage Total 265 ml 305 ml 300 ml . Laboratory Tests Test 01/08/16 01/08/16 01/09/16 00:50 04:30 03:05 Hemoglobin 11.3 GM/DL 10.8 GM/DL 9.8 GM/DL Hematocrit 32.1 % 29.9 % 27.5 % White Blood Count 28.9 TH/MM3 25.2 TH/MM3 Red Blood Count 3.64 MIL/MM3 3.25 MIL/MM3 Mean Corpuscular Volume 82.2 FL 84.5 FL Mean Corpuscular Hemoglobin 29.5 PG 30.1 PG Mean Corpuscular Hemoglobin 35.9 % 35.6 % Concent Red Cell Distribution Width 15.0 % 14.9 % Platelet Count 76 TH/MM3 110 TH/MM3 Mean Platelet Volume 10.3 FL 11.1 FL Laboratory Tests Test 01/08/16 01/08/16 01/09/16 00:50 04:30 03:05 Potassium Level 4.1 MEQ/L 3.8 MEQ/L 3.1 MEQ/L Sodium Level 145 MEQ/L 147 MEQ/L Chloride Level 107 MEQ/L 110 MEQ/L Carbon Dioxide Level 27.6 MEQ/L 25.5 MEQ/L Anion Gap 10 MEQ/L 12 MEQ/L Blood Urea Nitrogen 49 MG/DL 53 MG/DL Creatinine 1.31 MG/DL 1.39 MG/DL Estimat Glomerular Filtration 57 ML/MIN 53 ML/MIN Rate Random Glucose 97 MG/DL 87 MG/DL Calcium Level 6.6 MG/DL 6.7 MG/DL Protein Corrected Calcium 8.5 MG/DL 8.5 MG/DL Total Protein 3.6 GM/DL 3.8 GM/DL Imaging Last Impressions Chest X-Ray 01/07/16 0000 Signed Impressions: Service Date/Time: Thursday, January 07, 2016 04:23 - CONCLUSION: Worsening consolidation or atelectasis at the left mid and lower lung. Some degree of left effusion may also be contributing to this. Arnaldo Reyes MD Abdomen/Pelvis CT 01/06/16 0000 Signed Impressions: Service Date/Time: Wednesday, January 06, 2016 22:07 - CONCLUSION: 1. Over the last day there is development of a large mass in the left upper quadrant measuring up to 18 x 13 cm which appears to be associated with the stomach. The mass is characterized by somewhat concentric areas of decreased and increased attenuation with multiple locules of air. Primary differential diagnosis is hemorrhage into the gastric wall with gastric pneumatosis and possibly gastric ischemia. Gastrostomy is again noted anteriorly. 2. Remainder the exam is relatively stable with drainage tube left upper quadrant, splenectomy, bilateral effusions, feeding jejunostomy and drain within the pelvis. There is also diffuse anasarca and nonobstructing renal calculi. Nomi Falcon MD Chest CT 01/05/16 0000 Signed Impressions: Service Date/Time: Tuesday, January 05, 2016 23:15 - CONCLUSION: 1. Persistent left lower lobar consolidation. Improved consolidative infiltrates in the right lower lung. 2. Interval increase size bilateral pleural effusions , left greater than right. Osmar Alegria MD Celiac/Hepatic Arteriogram 12/27/15 0000 Signed Impressions: Service Date/Time: December 13:41 - CONCLUSION: 1. No active GI bleed identified. Robert Mckinney MD Abdomen X-Ray 12/18/15 0000 Signed Impressions: Service Date/Time: Friday, December 18, 2015 16:05 - CONCLUSION: Feeding tube tip is at the gastric antrum. Arnaldo Elias MD Head CT 12/02/15 1013 Signed Impressions: Service Date/Time: Wednesday, December 02, 2015 11:00 - CONCLUSION: 1. No intracranial abnormality is seen. 2. Air-fluid level in the right maxillary sinus. Arnaldo Reyes MD Physical Exam GENERAL: On vent , sedated intubated, unresponsive SKIN: + minimal jaundice. Anasarca HEENT: no icterus, no nasal discharge NECK: Trach in place CARDIOVASCULAR: systolic murmur in base of heart RESPIRATORY/CHEST: scattered rhonchi on auscultation.L side with crackes GASTROINTESTINAL: dressing in place JPs in place with serous drainage Stoma with maroon stool GENITOURINARY: Sandoval catheter in place with clear light yellow urine with sediment MUSCULOSKELETAL: Extremities no cyanosis, edema 2-3+ pitting with poorly healing wounds RUE with VAC in place, serosang dc NEUROLOGICAL: sedated, unresponsive LINES: NO evidence of infection Assessment & Plan Remarks Sepsis related to Cdiff and Intra abdominal peritonitis. - sp subtotal colectomy and ileostomy SP colon perfocation and intraperitoneal gross contamination ? Cdiff Colitis Noted Cdiff PCR is negative3/3 ? Zinc preparation in perianal care could cause false negative test. Path c/o Cdiff Colitis. - repeat path favouring ischemia RUE severe nec fasc due to MSSA - skin grafting was planned, but cancelled - S/P I and D x 3 - clinically resolved MSSA bacteremia 2/2 RUE infx - resolved E.coli bacteremia on presentation -source is likely gut Immunosuppressed on steroids, s/p splenectomy. PCN allergy, but no probs with Keflex per report. ARF/ DEIRDRE/ATN 2/2 sepsis -stable Recurretn life threatening upper GI bleeding 2/2 bleeding ulcers Persistent leukocytosis - liekly reactive leukocytosis 2/2 massive gstic bleeding New issue : fungemia despite micafungin ? sourece intraabd vs (less likely) line PLAN: Continue IV cefepime,flagyl IV, dc micafungin IV start liposomal AMB Continue Vancomycin for now fu WBC repeat BC D/W Argelia Johnson MD Jan 09, 2016 18:42
[2016-01-09] MEDS: PANTOPRAZOLE SODIUM 40 MG VIAL IV PUSH SCH (19:57)
[2016-01-09] MEDS: fentaNYL DRIP 250 ML IV SCH (19:58)
[2016-01-09] MEDS: FAT EMULSION 20% INJ 250 ML (Daily over 8 hours) IV-CENTRAL SCH (20:36)
[2016-01-09] MEDS: CLINIMIX 4.25/25 (Cust.Renal Central) 1000 mL- </= 42 mls/hr IV-CENTRAL SCH ×8 (20:40)
[2016-01-09] MEDS: VASOPRESSIN INJ 40 UNITS in DEXTROSE 5% IN WATER 100ML INJ 98 ML IV SCH ×2 (23:33)
[2016-01-10] VITALS (18 sets, daily range): BP systolic 108–133; BP diastolic 74–96; PULSE 84–104; RESP 9–27; TEMP 97.4–98.2; O2SAT 95–100
[2016-01-10] MEDS: oxyCODONE HCL ORAL CONC 20 MG/ML SYRINGE PO SCH ×6 (00:06→20:59)
[2016-01-10] MEDS: CHLORHEXIDINE GLUCONATE 2 % 1 PACK (2 CLOTHS) TOP SCH (04:00)
[2016-01-10] MEDS: metroNIDAZOLE 500 MG INJ 100 ML IV SCH ×3 (04:36→19:50)
[2016-01-10] MEDS: ACETAMINOPHEN 650 MG/20.3 ML UDC PO SCH ×4 (04:36→23:38)
[2016-01-10] MEDS: METOPROLOL TARTRATE 5 MG/5 ML VIAL IV PUSH SCH ×4 (05:48→23:38)
[2016-01-10] MEDS: HYDROCORTISONE SOD SUCCINATE 100 MG VIAL IV PUSH SCH ×3 (05:49→20:59)
[2016-01-10] MEDS: INSULIN ASPART SUPPLEMENTAL SCALE SQ SCH ×4 (05:49→23:39)
[2016-01-10] MEDS: CEFEPIME INJ 2,000 MG in SODIUM CHLORIDE 0.9% INJ 100 ML IV SCH ×2 (06:48→17:23)
[2016-01-10] MEDS: CHLORHEXIDINE 0.12% (ORAL KIT) 15 ML CUP MT SCH ×2 (08:00→19:51)
[2016-01-10] MEDS: POVIDONE IODINE 10% OINT 30 GM TUBE TOPICAL SCH (09:00)
[2016-01-10] MEDS: NEOMYCIN/POLYMYXIN/BACITRACIN OINT 15 GM TUBE TOPICAL SCH ×2 (09:00→19:51)
[2016-01-10] MEDS: FUROSEMIDE 20 MG/2 ML VIAL IV PUSH SCH ×2 (09:08→17:22)
[2016-01-10] MEDS: PANTOPRAZOLE SODIUM 40 MG VIAL IV PUSH SCH ×2 (09:08→19:50)
--- NOTE | 2016-01-10 10:52 | HHI.PR ---
Addendum to Inpatient Note Additional Information Pt grew out C. parapsilosa Will dc AMB start fluconazole ophthalmology consult next week Document clearing Argelia Becerra MD Jan 10, 2016 10:52
--- NOTE | 2016-01-10 11:24 | HHI.CCPN ---
Subjective Remarks/Hospital Course 55-year-old male brought by EMS with altered mental status. He has been confused for 2 days but this morning has been the worst. He has history of chronic opiate medications including methadone and morphine that he takes for pain management and hence they gave him Narcan IV which brought the GCS up to 13. The blood glucose was 74. He has open wounds from his right upper and bilateral lower extremities. He has history of hepatitis C. Last week he was pealing and eating shrimps. Bedside blood sugar was 76 in the ER. He was tachycardic in 1 teens and was intubated in the ED for airway protection. Admitted to ICU with sepsis due to Staph Aureus hand infection and E. Coli bacteriemia. 12/05 Patient remains sedated with Fentanyl and intubated. On Levophed 3 mics, Vasopressin 0.03 mics and Bicarb drip. T:99.8 TF placed on hold OGT to LIWS last night - gastric drainage 525ml overnight. 12/06 Patient is sedated with Fentanyl and intubated, On Levophed 3 mics, off vasopressin. Gastric output 400ml in 24 hrs. KUB abdomen yesterday mildly distended colon otherwise non specific KUB. 12/07 Patient is off sedation remains intubated tolerated CPAP for most day yesterday. Afebrile. on no drips, tolerating tube feeds. 12/08 Patient went to OR yesterday for debridement and irrigation of right forearm and wound VAC placement. Given 2U PRBC and 2u PLT yesterday and currently receiving 1of 2 u additional PRBC. Hgb 7.7, PLT 43 this morning. Patient also started on pressors now on Levophed 10 mics. Vasopressin 0.04 mics. On no sedation. 12/09 Patient remains intubated off pressors, Afebrile. Tolerating tube feeds. Afebrile. 12/10 Patient is sedated with Fentanyl and intubated. Awake and follows commands off sedation. Afebrile. 12/11 Patient had ?SVT overnight given Lopressor 2.5mg IV x1, Remains intubated and sedated with Fentanyl. Afebrile. Tolerating TF. 12/12 Patient spoked fever last night with T: 101.5, sedated with Fentanyl and intubated. 12/13 Patient had an episode of desaturation overnight required increase FIO2/ PEE now on ACV with RR 14, TV 550, PEEP: 12, FIO2 60% with sats 100% CT chest performed overnight showed b/l consolidation and small pleural effusion. Had T: 100.0 last night. 12/14 Tolerating PS 15/CPAP 10 FiO2 40% with rSBI 38, weaning. . Awake and alert , following commands. Hypotensive overnight and levophed restarted up to 12 mcg/ min. Nurse has been weaning throughout the day. Suspected adrenal insufficiency as he was on prednisone as outpatient for gout and has not been on stress dose steroids. Given decadron. 12/15 Transfused 1 unit PRBC for Hgb 7.0 yesterday, 1 unit PRBC for Hgb 6.6 today and now Hgb 8.3. Does not clinically have e/o active GI bleeding and wound vac output nonbloody. Stool 1500 output, C diff negative. No abdominal pain. Remains Awake and alert, remained on CPAP 10/5 last night and is now tolerating CPAP 5/5. 12/16: Extubated yesterday tolerating well. Breathing comfortably. Able to follow commands. UO 1.8 L in 24 hours. Na slightly increased to 153. 12/17: Significantly worse this AM. WBC up to 28 from 16. Hgb 5.2 from 7.9. tachycardic. pale this AM. states he feels tired. Continues on BiPAP. Plan for debridement of his arms today. LIJ CVL does not have any signs of overt infection. 12/18: Blood cell count continues to rise today to 30 from 28. Required 1 unit of blood for hemoglobin of 6.6 which improved to 7.7 this morning. However, patient remains tachycardic in the 120s and significantly pale. CT abdomen and pelvis ordered and pending. Tachypneic with respiratory rate in the 30s. Only small amount of dark tarry stool yesterday with approximately 300 cc of stool output. C. difficile toxin negative 3. After discussion with infectious disease, restart vancomycin, cefepime, Flagyl, micafungin. Horn cultures are pending. Per discussion with GI, will not scope as endoscopy is high risk given his tenuous respiratory status this point. Slightly worse hypernatremia as well as worsening acute kidney injury this morning. 12/19: POD 1 s/p ex-lap, washout for perforated ascending colon with extended right hemicolectomy, primary ileocolic anastamosis, open abdomen, septic shock, acute hypoxic and hypercarbic respiratory failure. Significantly critically ill overnight: required 6L ivf resuscitation, 1 unit prbc, norepinephrine, vasopressin, stress dose hydrocortisone. This morning, remains on high-dose vasopressors. still has large volume ivf requirement. Significant SIRS response. Vent requirements increasing with all this volume resuscitation, PEEP up to 10. He remains critically ill, and although I do believe we have surgical source control, I anticipate he will continue to clinically decline before he starts to make improvements. 12/20: Off pressors. follows commands on sedation holiday. +11L over last 3 days during acute illness, +22L since admission. We are going to have to get some of this volume back before we are able to close him given his severe anasarca. 12/21: Taken back to the OR yesterday afternoon for washout and completion colectomy. Postoperatively was significantly under resuscitated as well as had ongoing active oozing. Patient was coagulopathy. The patient was in distributive and hemorrhagic shock. The patient was given multiple units of blood products overnight. Patient was thrombocytopenic, hypofibrinogenemic, coagulopathic. Given significant volume of blood product resuscitation: 24h blood products: 13 prbc 8 ffp 2 plt 1 10-pack cryo This morning continues to have significant amount of bright red output out of his BEV and wound VAC, approximately 500 cc an hour out of his wound VAC, and approximately 75 an mils every 10 minutes out of a BEV. I discussed with surgery and we will correct his coagulopathy and plan to go back to the OR for exploration early this afternoon. 12/22: Clinically starting to improve hemodynamically. off vasopressors. Net+ 26L. CVP rising to 14. UOP adequate. Hgb 7 this AM. 12/23 Seen postop. Hypertensive, BP improved with additional pain medicine. Remains net positive but urine output excellent 3L in 24 hours. Remains on Lasix gtt. went to OR today status post wound VAC change and partial closure 12/24: Fascia was closed yesterday. Wound Vac in place. Remains sedated. -2L negative balance, but with increasing BUN/creat. Discontinue Bumex infusion, start scheduled Bumex 2 mg IV every 12 with IV albumin. 12/25: Overnight became hypotensive requiring Levophed to be restarted. Hemoglobin dropped to 4.1. Noted to have bloody drainage from G-tube and dorsal ileostomy with black stool output 12/26: s/p EGD yesterday-2 gastric ulcers bleeding, stomach a significant part had decreased discoloration indicating probable ischemia. s/p epi injection and cauterization. Continues to have coffee ground G tube output, black tarry Ileostomy output. Hemoglobin down to 6.4 getting 2 units of PRBC. GI recent recommending intervention radiology consult. 12/27: For trach today. Meds ordered. Hgb decline consistent with recent transfusions and senescent cells. 12/28: Trach clean, dry. Start SBTs. Check prealbumin. Continue TPN. 12/29: Looks in direction of voice. I have not seen more purposeful reactions. Line > 12 days old, replace today. Prealbumin 20 - good response to TPN. 12/30: Remains vented, encephalopathic, puss like drainage from left hand, WBC increased 01/01: no significant changes. continues to remain critically ill with minimal improvements over the last week. abdomen closed. still total body volume overloaded. 01/02: more awake today than yesterday. continues to be critically ill with minimal improvements overall. need to look towards placement. -900 yesterday. 01/03: up in chair yesterday. tolerated short run of SBT 15/5/40%. net euvolemic. wbc downtrending. 01/04: wbc slightly uptrended 33 from 30, more acidotic on BMP (14 from 20). Also spiking fevers to 102.3 despite tylenol. continues on broad spectrum abx. yesterday's cxr had what may be a new LLL infiltrate. today, though, he is following commands and more awake and alert. 01/05: LLL pna clinically and based on bronch. CT c/a/p done last night without any significant intra-abdominal change. small left pleural effusion which appears simple in nature, and LLL consolidation. ID broadened abx. today , wbc downtrending. culture data pending. Hgb 7 this AM. 01/06: Underwent exploratory laparotomy last night with findings of bleeding gastric ulcer which was oversewn by Dr. Verdin abdomen left open with wound VAC in place. Received 3 units PRBCs overnight. Remains on Wesley-Synephrine drip this morning for hypotension. Remains sedated, on mechanical ventilation. 01/07: Remains sedated, on mechanical ventilation. For abdominal incision site closure today. Significant positive fluid balance over the last 2 days. Off pressors currently. Lasix to mobilize fluid. 01/08: Remains sedated, on mechanical ventilation via tracheostomy. Underwent abdominal incision site closure this morning. Remains off pressors. Anasarca noted. Blood cultures from 01/04 growing Nava parapsilosis. 01/09: Drowsy/sedated, arousable, on mechanical ventilation via tracheostomy. TPN started yesterday. To be started on J-tube feeds today per discussion with surgery Objective Vital Signs Date Time Temp Pulse Resp B/P Pulse Ox O2 Delivery O2 Flow Rate FiO2 01/10/16 10:00 94 01/10/16 08:05 99 40 01/10/16 08:00 97.7 15 113/74 Intake and Output 01/09/16 01/09/16 01/09/16 07:59 15:59 23:59 Intake Total 534 ml 488 ml 996 ml Output Total 700 ml 455 ml 590 ml Balance -166 ml 33 ml 406 ml Result Diagram: 01/09/16 0305 01/10/16 0440 Other Results Laboratory Tests Test 01/10/16 04:40 Creatinine 1.64 MG/DL Estimat Glomerular Filtration 44 ML/MIN Rate Imaging Last 48 hours Impressions Chest X-Ray 01/07/16 0000 Signed Impressions: Service Date/Time: Thursday, January 07, 2016 04:23 - CONCLUSION: Worsening consolidation or atelectasis at the left mid and lower lung. Some degree of left effusion may also be contributing to this. Arnaldo Reyes MD Chest X-Ray 01/06/16 0000 Signed Impressions: Service Date/Time: Wednesday, January 06, 2016 19:46 - CONCLUSION: 1. Basilar airspace disease improved from January 04. Tracheostomy and right central line in satisfactory position. Nomi Falcon MD Abdomen/Pelvis CT 01/06/16 0000 Signed Impressions: Service Date/Time: Wednesday, January 06, 2016 22:07 - CONCLUSION: 1. Over the last day there is development of a large mass in the left upper quadrant measuring up to 18 x 13 cm which appears to be associated with the stomach. The mass is characterized by somewhat concentric areas of decreased and increased attenuation with multiple locules of air. Primary differential diagnosis is hemorrhage into the gastric wall with gastric pneumatosis and possibly gastric ischemia. Gastrostomy is again noted anteriorly. 2. Remainder the exam is relatively stable with drainage tube left upper quadrant, splenectomy, bilateral effusions, feeding jejunostomy and drain within the pelvis. There is also diffuse anasarca and nonobstructing renal calculi. Nomi Falcon MD Last Impressions Chest X-Ray 12/17/15 0600 Signed Impressions: Service Date/Time: Thursday, December 17, 2015 03:25 - CONCLUSION: Persistent left lower lobe consolidation. Osmar Alegria MD Chest CT 12/14/15 0000 Signed Impressions: Service Date/Time: Monday, December 14, 2015 06:12 - CONCLUSION: 1. Cardiomegaly with bilateral consolidation, likely CHF. Pneumonia cannot be excluded. 2. Small right pleural effusion. Wojciech Lockhart MD Abdomen X-Ray 12/06/15 0000 Signed Impressions: Service Date/Time: November 09:53 - CONCLUSION: Nonspecific KUB. Air is seen within a mildly distended colon but contrast is clearly seen in the rectum. Arnaldo Reyes MD Abdomen/Pelvis CT 12/04/15 0000 Signed Impressions: Service Date/Time: Friday, December 04, 2015 16:24 - CONCLUSION: 1. Mildly distended small bowel in the mid and lower abdomen. Contrast is clearly seen extending into the distal small bowel and ascending colon so a complete obstruction is not seen. A transition point is not seen. This pattern likely represents an ileus versus a partial obstruction. 2. Multiple nonobstructing renal stones. 3. Abnormal appearance of the spleen which appears to represent a splenule. It could be correlated if the patient has had either primary splenic removal or splenic injury and this is what is either left of the spleen or a developing splenule. This is likely of no significance. 4. Mild ascites. 5. Increased density within the gallbladder representing either tumefactive sludge or noncalcified stones. 6. Mild bilateral pleural effusions with prominent areas of lower lobe atelectasis or consolidation at the bases bilaterally. 7. Subacute to chronic bilateral rib fractures and multiple compression fractures in the lower thoracic and lumbar spine as described above. The patient does have a prior CT examination from 08/26/2014. All the compression deformities described above are new when compared to that scan. Arnaldo Reyes MD Head CT 12/02/15 1013 Signed Impressions: Service Date/Time: Wednesday, December 02, 2015 11:00 - CONCLUSION: 1. No intracranial abnormality is seen. 2. Air-fluid level in the right maxillary sinus. Arnaldo Reyes MD Objective Remarks GENERAL: Middle-aged male, lying in bed, trached. remains critically ill. HEENT: NCAT. mucous membranes moist. NECK: trach in place. obese neck. difficult to assess JVD. right IJ triple lumen catheter in place, site clean RESPIRATORY: Breath sounds equal bilaterally. coarse crackles b/l. CARDIOVASCULAR: Tachycardic, regular rhythm without murmurs, rubs. GASTROINTESTINAL: Reena dressing over midline incision site. BEV drains in place , J tube in place, nondistended. BS not appreciated. MUSCULOSKELETAL: Generalized anasarca. Multiple open wounds in the lower extremity. RUE - with wound vac in place. L upper extremity dressing in place. 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 On fentanyl gtt. for sedation/analgesia. Titrate off as tolerated. - fentanyl patch 75mcg/h q3d for long acting pain control. - liquid tylenol 650mg per tube q6h. - Dilaudid 2mg iv q4h prn for breakthrough pain. - ketamine drip d/cd 12/22. - oxycodone 20mg per tube q4h scheduled to help wean off fentanyl infusion. Respiratory Acute respiratory failure-extubated 12/16/15, reintubated for surgery 12/18 Acute hypoxic and hypercarbic respiratory failure Acute healthcare associated pneumonia- resolved NIGEL on home CPAP - Tracheostomy 12/27 - Vent bundle. Head of bed at 30 degrees. Nebs q6h and q2h prn. - Continue mechanical ventilation, Daily CPap trials CV Hemorrhagic shock- resolved Septic Shock- resolved Volume overload - keep map > 65 mmHg. - Cortisol level 14 on 12/14 - Prednisone held. Decrease hydrocortisone to 50mg [id number] - Echo 12/07 EF 65-70%, grade I diastolic dysfunction Continue lasix Renal: DEIRDRE Hypernatremia - stopped bicarbonate drip 01/07, strict intake output, monitor and replete electrolites, follow BUN/creatinine. - On diuretics to mobilize fluid. FEN/GI Acute GIB, hemorrhagic shock Perforated right colon with colitis s/p ex-lap, extended right hemicolectomy with primary ileocolic anastamosis, washout, open abdomen (12/18) s/p Elap 01/05 for bleeding gastric ulcer Acute protein calorie malnutrition- severe Hypokalemia Total body volume overload Intravascular hypervolemia - Protonix BID - EGD 12/26/15 showed 2 large gastric ulcers with active bleeding status post epinephrine infusion and cauterization - ICU electrolyte protocol - Daily CMP - OR on 12/24 with Removal of VAC, washout, pancreatic drain and pelvic drain placement, gastrostomy, feeding jejunostomy and closure of abdomen with application of VAC device in the subcutaneous tissue. - TFs via jejunostomy to be resumed when OK with surgery - off TPN 01/01. TPN resumed 01/08 @ 42cc/hr with lipids. - on full TF at goal - held 01/05 for bleeding gastric ulcer s/p Elap. J tube trophic feeds to be resumed 01/09 Heme: Acute Anemia secondary to acute blood loss Thrombocytopenia Hypofibrinogenemia secondary to consumption and acute blood loss Coagulopathy secondary to consumption and acute blood loss --monitor CBC, qday H/H. --Hep PLT ab negative on 12/03 --Platelets FFP fibrinogen as needed --Trend Hgb - Ferrous Sulfate TID - transfused 3 units PRBCs 01/05- ID Severe sepsis Necrotizing Fascitis - MSSA on wound culture 12/07. Ecoli bacteremia 12/01 MSSA bacteremia 12/05. Cleared on f/u blood culture 12/07, 12/12. Leukocytosis Sepsis of Intra-abdominal origin. C. difficile toxic megacolon --Debridement 12/01 p.m at bedside by Dr Pedro and Dr. Hartmann --R hand, forearm and olecranon bursa I and D and Wound vac 12/07 Dr Chavez. -- IV cefepime,flagyl IV. Micafungin stopped per ID 01/08. Amphotericin B started by ID on 01/08 and stopped 01/09. Fluconazole started 01/09 per ID. Discussed with ID on 01/08. Nava and blood probably from an intra- abdominal source. Repeat blood cultures sent 01/08. --12/17 blood cultures: NGTD 12/17 central line culture: NGTD 12/17 urine cultures: NGTD 12/17 sputum cultures: NGTD C. difficile toxin 12/17: Negative (3rd negative toxin screen) -01/04 Blood culture with nava parapsilosis 01/04: horn culture, bronch with BAL, 01/04: CT chest/abd/pelvis without contrast: LLL consolidation, otherwise unchanged. 01/04: clinically LLL VAP. --ID Dr. Becerra Endocrine: Hyperglycemia of Critical Illness Diabetes - off Insulin drip - Moderate SSI - Levemir BID on hold. - Prednisone 10mg po daily. slow taper started however pt back on pressors after Elap on 01/06 so starting hydrocortisone 50 mg IV every 8 hourly on 01/06 Prophylaxis: GI Prophylaxis: -- Protonix IV BID DVT Prophylaxis: - SCDs Resume subcutaneous heparin when okay with general surgery Lines: -- Sandoval -- right axillary arterial line 01/04 -- right IJ TLC 01/04 Dispo: -- He remains in the ISC and severely critically ill, ventilator weaning failure , ongoing sepsis. Critical Care: The total critical care time was 45 minutes. Time to perform other separately billable procedures was not included in the critical care time. D/W Dr. Verdin. Problem Qualifiers (1) Respiratory failure: Qualified Code: J96.00 - Acute respiratory failure, unspecified whether with hypoxia or hypercapnia (2) Altered mental status: Qualified Code: R41.0 - Delirium (3) Sepsis: Qualified Code: A41.9 - Sepsis, due to unspecified organism Christopher Clark MD Jan 10, 2016 11:24
[2016-01-10 12:23] LABS: BICARBONATE 21.4 MEQ/L (21.0-32.0); CALCIUM-PROTEIN CORRECTED 8.6 MG/DL (8.5-10.1); POTASSIUM 3.5 MEQ/L (3.5-5.1); TOTAL BILIRUBIN ADULT 1.9 MG/DL (0.2-1.0)
[2016-01-10] MEDS: FLUCONAZOLE 400 MG PREMIX BAG 200 ML IV SCH (13:10)
--- NOTE | 2016-01-10 15:33 | HHI.PR ---
Subjective Subjective Notes off pressors, sedated, on vent via trach Objective Vitals/I&O Vital Signs Date Time Temp Pulse Resp B/P Pulse Ox O2 Delivery O2 Flow Rate FiO2 01/10/16 14:00 88 01/10/16 12:00 97.7 27 121/80 97 01/10/16 12:00 40 Labs Laboratory Tests Test 01/10/16 04:40 Sodium Level 146 Potassium Level 3.5 Chloride Level 110 Carbon Dioxide Level 21.4 Anion Gap 15 Blood Urea Nitrogen 56 Creatinine 1.64 Estimat Glomerular Filtration 44 Rate Random Glucose 153 Calcium Level 6.9 Protein Corrected Calcium 8.6 Total Bilirubin 1.9 Aspartate Amino Transf 94 (AST/SGOT) Alanine Aminotransferase 81 (ALT/SGPT) Alkaline Phosphatase 184 Total Protein 4.0 Albumin 1.1 Date/Time Procedure Status Source Growth 01/10/16 00:00 Aerobic Blood Culture Received Blood Peripheral Pending 01/10/16 00:00 Anaerobic Blood Culture Received Blood Peripheral Pending Radiology Last Impressions Chest X-Ray 12/28/15 0000 Signed Impressions: Service Date/Time: Monday, December 28, 2015 14:23 - CONCLUSION: Large left pleural effusion and left lung base consolidation. Freddy Connor MD Abdomen/Pelvis CT 12/19/15 0000 Signed Impressions: Service Date/Time: Saturday, December 19, 2015 10:57 - CONCLUSION: 1. Adjacent volume pneumoperitoneum is observed consistent with perforation of a hollow viscus. This is presumably colonic in origin due to the diffuse inflammatory process involving the colon. I do not clearly identify the source of the pneumoperitoneum however. There is mild dilatation of the small bowel likely an ileus in nature. A significant volume of ascitic fluid is noted. 2. Bibasilar atelectasis and bilateral pleural effusions. 3. Small pericardial effusion. 4. Small bilateral nonobstructing renal calculi. 5. I spoke with Dr. Sanchez concerning the findings. Osmar Chavez Jr., MD Abdomen X-Ray 12/18/15 0000 Signed Impressions: Service Date/Time: Friday, December 18, 2015 16:05 - CONCLUSION: Feeding tube tip is at the gastric antrum. Arnaldo Elias MD Chest CT 12/14/15 0000 Signed Impressions: Service Date/Time: Monday, December 14, 2015 06:12 - CONCLUSION: 1. Cardiomegaly with bilateral consolidation, likely CHF. Pneumonia cannot be excluded. 2. Small right pleural effusion. Wojciech Lockhart MD Head CT 12/02/15 1013 Signed Impressions: Service Date/Time: Wednesday, December 02, 2015 11:00 - CONCLUSION: 1. No intracranial abnormality is seen. 2. Air-fluid level in the right maxillary sinus. Arnaldo Reyes MD Cardiovascular: Regular Lungs: Upper airway course sound Abdomen: Other (HELENA with poor seal, incision well approximated) A/P Problem List: (1) Dependent on ventilator (2) Open wound of abdomen (3) Ileostomy in place (4) Jejunostomy tube present (5) S/P total colectomy (6) Acute colitis (7) Gastrostomy tube in place Assessment and Plan s/p colon resection and takeback, now stable. developed GI bleeding ulcer s/p ex lap gastrostomy with ulcer ligation POD 3 Abdominal closure POD 1- Stable off pressors WBC's remain elevated Plan: ISC management tpn Started ID for antifungals/abx ok to start trickle j Tube feeds reinforce vac Problem Qualifiers (1) Open wound of abdomen: Qualified Code: S31.109D - Open wound of abdomen, subsequent encounter Bebo Verdin MD Jan 10, 2016 15:33
[2016-01-10] MEDS: FAT EMULSION 20% INJ 250 ML (Daily over 8 hours) IV-CENTRAL SCH (19:50)
[2016-01-10] MEDS: CLINIMIX 4.25/25 (Cust.Renal Central) 1000 mL- </= 42 mls/hr IV-CENTRAL SCH ×8 (19:51)
[2016-01-10] MEDS: VASOPRESSIN INJ 40 UNITS in DEXTROSE 5% IN WATER 100ML INJ 98 ML IV SCH ×2 (23:33)
[2016-01-10] MEDS: fentaNYL DRIP 250 ML IV SCH (23:38)
[2016-01-11] VITALS (16 sets, daily range): BP systolic 130–152; BP diastolic 85–104; PULSE 94–113; RESP 13–24; TEMP 97.2–98.2; O2SAT 92–100
[2016-01-11] MEDS: oxyCODONE HCL ORAL CONC 20 MG/ML SYRINGE PO SCH ×6 (01:00→20:59)
[2016-01-11] MEDS: CHLORHEXIDINE GLUCONATE 2 % 1 PACK (2 CLOTHS) TOP SCH (03:43)
[2016-01-11] MEDS: metroNIDAZOLE 500 MG INJ 100 ML IV SCH ×3 (03:52→21:00)
[2016-01-11] MEDS: ACETAMINOPHEN 650 MG/20.3 ML UDC PO SCH ×4 (03:53→23:32)
[2016-01-11 04:17] LABS: AUTOMATED NEUTROPHIL # 23.5 TH/MM3 (1.8-7.7); BASOPHIL # 0.3 TH/MM3 (0-0.2); BASOPHIL % 1.2 % (0.0-2.0); HEMATOCRIT 28.7 % (39.0-51.0); LYMPHOCYTE # 0.8 TH/MM3 (1.0-4.8); MEAN CORPUSCULAR HEMOGLOBIN 30.2 PG (27.0-34.0); MEAN CORPUSCULAR HGB CONC 34.4 % (32.0-36.0); MONO % 6.3 % (0.0-8.0); NEUT % 89.5 % (16.0-70.0); PLATELET COUNT 170 TH/MM3 (150-450); RED BLOOD COUNT 3.26 MIL/MM3 (4.50-5.90); RED CELL DISTRIBUTION WIDTH 15.1 % (11.6-17.2); WHITE BLOOD COUNT 26.3 TH/MM3 (4.0-11.0)
[2016-01-11 04:20] LABS: HEMO FLAGS AUTO DIFF
[2016-01-11 04:37] LABS: CALCIUM-PROTEIN CORRECTED 8.5 MG/DL (8.5-10.1); MAGNESIUM 1.5 MG/DL (1.5-2.5); TOTAL BILIRUBIN ADULT 1.7 MG/DL (0.2-1.0)
[2016-01-11 04:47] LABS: SCAN/DIFF AUTO DIFF CONFIRMED
[2016-01-11] MEDS: METOPROLOL TARTRATE 5 MG/5 ML VIAL IV PUSH SCH ×4 (05:39→23:32)
[2016-01-11] MEDS: CEFEPIME INJ 2,000 MG in SODIUM CHLORIDE 0.9% INJ 100 ML IV SCH (05:39)
[2016-01-11] MEDS: INSULIN ASPART SUPPLEMENTAL SCALE SQ SCH ×4 (05:39→23:32)
[2016-01-11] MEDS: HYDROCORTISONE SOD SUCCINATE 100 MG VIAL IV PUSH SCH ×3 (05:39→21:00)
[2016-01-11] MEDS: MAGNESIUM SULFATE INJ 2 GM in SODIUM CHLORIDE 0.9% INJ 96 ML IV PRN (05:40)
[2016-01-11] MEDS: CHLORHEXIDINE 0.12% (ORAL KIT) 15 ML CUP MT SCH ×2 (08:00→21:00)
[2016-01-11] MEDS: PANTOPRAZOLE SODIUM 40 MG VIAL IV PUSH SCH ×2 (09:33→21:00)
[2016-01-11] MEDS: FUROSEMIDE 20 MG/2 ML VIAL IV PUSH SCH ×2 (09:33→17:36)
[2016-01-11] MEDS: POVIDONE IODINE 10% OINT 30 GM TUBE TOPICAL SCH (09:35)
[2016-01-11] MEDS: NEOMYCIN/POLYMYXIN/BACITRACIN OINT 15 GM TUBE TOPICAL SCH ×2 (09:35→21:00)
[2016-01-11] MEDS: FLUCONAZOLE 400 MG PREMIX BAG 200 ML IV SCH (13:21)
--- NOTE | 2016-01-11 14:16 | HHI.CCPN ---
Subjective Remarks/Hospital Course 55-year-old male brought by EMS with altered mental status. He has been confused for 2 days but this morning has been the worst. He has history of chronic opiate medications including methadone and morphine that he takes for pain management and hence they gave him Narcan IV which brought the GCS up to 13. The blood glucose was 74. He has open wounds from his right upper and bilateral lower extremities. He has history of hepatitis C. Last week he was pealing and eating shrimps. Bedside blood sugar was 76 in the ER. He was tachycardic in 1 teens and was intubated in the ED for airway protection. Admitted to ICU with sepsis due to Staph Aureus hand infection and E. Coli bacteriemia. 12/05 Patient remains sedated with Fentanyl and intubated. On Levophed 3 mics, Vasopressin 0.03 mics and Bicarb drip. T:99.8 TF placed on hold OGT to LIWS last night - gastric drainage 525ml overnight. 12/06 Patient is sedated with Fentanyl and intubated, On Levophed 3 mics, off vasopressin. Gastric output 400ml in 24 hrs. KUB abdomen yesterday mildly distended colon otherwise non specific KUB. 12/07 Patient is off sedation remains intubated tolerated CPAP for most day yesterday. Afebrile. on no drips, tolerating tube feeds. 12/08 Patient went to OR yesterday for debridement and irrigation of right forearm and wound VAC placement. Given 2U PRBC and 2u PLT yesterday and currently receiving 1of 2 u additional PRBC. Hgb 7.7, PLT 43 this morning. Patient also started on pressors now on Levophed 10 mics. Vasopressin 0.04 mics. On no sedation. 12/09 Patient remains intubated off pressors, Afebrile. Tolerating tube feeds. Afebrile. 12/10 Patient is sedated with Fentanyl and intubated. Awake and follows commands off sedation. Afebrile. 12/11 Patient had ?SVT overnight given Lopressor 2.5mg IV x1, Remains intubated and sedated with Fentanyl. Afebrile. Tolerating TF. 12/12 Patient spoked fever last night with T: 101.5, sedated with Fentanyl and intubated. 12/13 Patient had an episode of desaturation overnight required increase FIO2/ PEE now on ACV with RR 14, TV 550, PEEP: 12, FIO2 60% with sats 100% CT chest performed overnight showed b/l consolidation and small pleural effusion. Had T: 100.0 last night. 12/14 Tolerating PS 15/CPAP 10 FiO2 40% with rSBI 38, weaning. . Awake and alert , following commands. Hypotensive overnight and levophed restarted up to 12 mcg/ min. Nurse has been weaning throughout the day. Suspected adrenal insufficiency as he was on prednisone as outpatient for gout and has not been on stress dose steroids. Given decadron. 12/15 Transfused 1 unit PRBC for Hgb 7.0 yesterday, 1 unit PRBC for Hgb 6.6 today and now Hgb 8.3. Does not clinically have e/o active GI bleeding and wound vac output nonbloody. Stool 1500 output, C diff negative. No abdominal pain. Remains Awake and alert, remained on CPAP 10/5 last night and is now tolerating CPAP 5/5. 12/16: Extubated yesterday tolerating well. Breathing comfortably. Able to follow commands. UO 1.8 L in 24 hours. Na slightly increased to 153. 12/17: Significantly worse this AM. WBC up to 28 from 16. Hgb 5.2 from 7.9. tachycardic. pale this AM. states he feels tired. Continues on BiPAP. Plan for debridement of his arms today. LIJ CVL does not have any signs of overt infection. 12/18: Blood cell count continues to rise today to 30 from 28. Required 1 unit of blood for hemoglobin of 6.6 which improved to 7.7 this morning. However, patient remains tachycardic in the 120s and significantly pale. CT abdomen and pelvis ordered and pending. Tachypneic with respiratory rate in the 30s. Only small amount of dark tarry stool yesterday with approximately 300 cc of stool output. C. difficile toxin negative 3. After discussion with infectious disease, restart vancomycin, cefepime, Flagyl, micafungin. Horn cultures are pending. Per discussion with GI, will not scope as endoscopy is high risk given his tenuous respiratory status this point. Slightly worse hypernatremia as well as worsening acute kidney injury this morning. 12/19: POD 1 s/p ex-lap, washout for perforated ascending colon with extended right hemicolectomy, primary ileocolic anastamosis, open abdomen, septic shock, acute hypoxic and hypercarbic respiratory failure. Significantly critically ill overnight: required 6L ivf resuscitation, 1 unit prbc, norepinephrine, vasopressin, stress dose hydrocortisone. This morning, remains on high-dose vasopressors. still has large volume ivf requirement. Significant SIRS response. Vent requirements increasing with all this volume resuscitation, PEEP up to 10. He remains critically ill, and although I do believe we have surgical source control, I anticipate he will continue to clinically decline before he starts to make improvements. 12/20: Off pressors. follows commands on sedation holiday. +11L over last 3 days during acute illness, +22L since admission. We are going to have to get some of this volume back before we are able to close him given his severe anasarca. 12/21: Taken back to the OR yesterday afternoon for washout and completion colectomy. Postoperatively was significantly under resuscitated as well as had ongoing active oozing. Patient was coagulopathy. The patient was in distributive and hemorrhagic shock. The patient was given multiple units of blood products overnight. Patient was thrombocytopenic, hypofibrinogenemic, coagulopathic. Given significant volume of blood product resuscitation: 24h blood products: 13 prbc 8 ffp 2 plt 1 10-pack cryo This morning continues to have significant amount of bright red output out of his BEV and wound VAC, approximately 500 cc an hour out of his wound VAC, and approximately 75 an mils every 10 minutes out of a BEV. I discussed with surgery and we will correct his coagulopathy and plan to go back to the OR for exploration early this afternoon. 12/22: Clinically starting to improve hemodynamically. off vasopressors. Net+ 26L. CVP rising to 14. UOP adequate. Hgb 7 this AM. 12/23 Seen postop. Hypertensive, BP improved with additional pain medicine. Remains net positive but urine output excellent 3L in 24 hours. Remains on Lasix gtt. went to OR today status post wound VAC change and partial closure 12/24: Fascia was closed yesterday. Wound Vac in place. Remains sedated. -2L negative balance, but with increasing BUN/creat. Discontinue Bumex infusion, start scheduled Bumex 2 mg IV every 12 with IV albumin. 12/25: Overnight became hypotensive requiring Levophed to be restarted. Hemoglobin dropped to 4.1. Noted to have bloody drainage from G-tube and dorsal ileostomy with black stool output 12/26: s/p EGD yesterday-2 gastric ulcers bleeding, stomach a significant part had decreased discoloration indicating probable ischemia. s/p epi injection and cauterization. Continues to have coffee ground G tube output, black tarry Ileostomy output. Hemoglobin down to 6.4 getting 2 units of PRBC. GI recent recommending intervention radiology consult. 12/27: For trach today. Meds ordered. Hgb decline consistent with recent transfusions and senescent cells. 12/28: Trach clean, dry. Start SBTs. Check prealbumin. Continue TPN. 12/29: Looks in direction of voice. I have not seen more purposeful reactions. Line > 12 days old, replace today. Prealbumin 20 - good response to TPN. 12/30: Remains vented, encephalopathic, puss like drainage from left hand, WBC increased 01/01: no significant changes. continues to remain critically ill with minimal improvements over the last week. abdomen closed. still total body volume overloaded. 01/02: more awake today than yesterday. continues to be critically ill with minimal improvements overall. need to look towards placement. -900 yesterday. 01/03: up in chair yesterday. tolerated short run of SBT 15/5/40%. net euvolemic. wbc downtrending. 01/04: wbc slightly uptrended 33 from 30, more acidotic on BMP (14 from 20). Also spiking fevers to 102.3 despite tylenol. continues on broad spectrum abx. yesterday's cxr had what may be a new LLL infiltrate. today, though, he is following commands and more awake and alert. 01/05: LLL pna clinically and based on bronch. CT c/a/p done last night without any significant intra-abdominal change. small left pleural effusion which appears simple in nature, and LLL consolidation. ID broadened abx. today , wbc downtrending. culture data pending. Hgb 7 this AM. 01/06: Underwent exploratory laparotomy last night with findings of bleeding gastric ulcer which was oversewn by Dr. Verdin abdomen left open with wound VAC in place. Received 3 units PRBCs overnight. Remains on Wesley-Synephrine drip this morning for hypotension. Remains sedated, on mechanical ventilation. 01/07: Remains sedated, on mechanical ventilation. For abdominal incision site closure today. Significant positive fluid balance over the last 2 days. Off pressors currently. Lasix to mobilize fluid. 01/08: Remains sedated, on mechanical ventilation via tracheostomy. Underwent abdominal incision site closure this morning. Remains off pressors. Anasarca noted. Blood cultures from 01/04 growing Nava parapsilosis. 01/09: Drowsy/sedated, arousable, on mechanical ventilation via tracheostomy. TPN started yesterday. To be started on J-tube feeds per discussion with surgery 01/10: Sedated, arousable, on mechanical ventilation via tracheostomy. Remains on TPN. J-tube feeds being started today Objective Vital Signs Date Time Temp Pulse Resp B/P Pulse Ox O2 Delivery O2 Flow Rate FiO2 01/11/16 10:52 14 01/11/16 10:00 102 01/11/16 08:00 35 01/11/16 07:25 97 01/11/16 04:00 98.1 152/104 Intake and Output 01/10/16 01/10/16 01/11/16 08:00 16:00 00:00 Intake Total 739 ml 1083 ml 1362 ml Output Total 595 ml 960 ml 870 ml Balance 144 ml 123 ml 492 ml Result Diagram: 01/11/16 0407 01/11/16 0407 Other Results Laboratory Tests Test 01/11/16 04:07 White Blood Count 26.3 TH/MM3 Red Blood Count 3.26 MIL/MM3 Hemoglobin 9.9 GM/DL Hematocrit 28.7 % Mean Corpuscular Volume 88.0 FL Mean Corpuscular Hemoglobin 30.2 PG Mean Corpuscular Hemoglobin 34.4 % Concent Red Cell Distribution Width 15.1 % Platelet Count 170 TH/MM3 Mean Platelet Volume 10.4 FL Neutrophils (%) (Auto) 89.5 % Lymphocytes (%) (Auto) 3.0 % Monocytes (%) (Auto) 6.3 % Eosinophils (%) (Auto) 0.0 % Basophils (%) (Auto) 1.2 % Neutrophils # (Auto) 23.5 TH/MM3 Lymphocytes # (Auto) 0.8 TH/MM3 Monocytes # (Auto) 1.7 TH/MM3 Eosinophils # (Auto) 0.0 TH/MM3 Basophils # (Auto) 0.3 TH/MM3 CBC Comment AUTO DIFF Differential Comment AUTO DIFF CONFIRMED Sodium Level 145 MEQ/L Potassium Level 3.0 MEQ/L Chloride Level 110 MEQ/L Carbon Dioxide Level 22.0 MEQ/L Anion Gap 13 MEQ/L Blood Urea Nitrogen 59 MG/DL Creatinine 1.81 MG/DL Estimat Glomerular Filtration 39 ML/MIN Rate Random Glucose 189 MG/DL Calcium Level 7.0 MG/DL Protein Corrected Calcium 8.5 MG/DL Phosphorus Level 4.7 MG/DL Magnesium Level 1.5 MG/DL Total Bilirubin 1.7 MG/DL Aspartate Amino Transf 54 U/L (AST/SGOT) Alanine Aminotransferase 65 U/L (ALT/SGPT) Alkaline Phosphatase 196 U/L Total Protein 4.3 GM/DL Albumin 1.2 GM/DL Random Vancomycin Level 42.2 COMMENT Imaging Last 48 hours Impressions Chest X-Ray 01/07/16 0000 Signed Impressions: Service Date/Time: Thursday, January 07, 2016 04:23 - CONCLUSION: Worsening consolidation or atelectasis at the left mid and lower lung. Some degree of left effusion may also be contributing to this. Arnaldo Reyes MD Chest X-Ray 01/06/16 0000 Signed Impressions: Service Date/Time: Wednesday, January 06, 2016 19:46 - CONCLUSION: 1. Basilar airspace disease improved from January 04. Tracheostomy and right central line in satisfactory position. Nomi Falcon MD Abdomen/Pelvis CT 01/06/16 0000 Signed Impressions: Service Date/Time: Wednesday, January 06, 2016 22:07 - CONCLUSION: 1. Over the last day there is development of a large mass in the left upper quadrant measuring up to 18 x 13 cm which appears to be associated with the stomach. The mass is characterized by somewhat concentric areas of decreased and increased attenuation with multiple locules of air. Primary differential diagnosis is hemorrhage into the gastric wall with gastric pneumatosis and possibly gastric ischemia. Gastrostomy is again noted anteriorly. 2. Remainder the exam is relatively stable with drainage tube left upper quadrant, splenectomy, bilateral effusions, feeding jejunostomy and drain within the pelvis. There is also diffuse anasarca and nonobstructing renal calculi. Nomi Falcon MD Last Impressions Chest X-Ray 12/17/15 0600 Signed Impressions: Service Date/Time: Thursday, December 17, 2015 03:25 - CONCLUSION: Persistent left lower lobe consolidation. Osmar Alegria MD Chest CT 12/14/15 0000 Signed Impressions: Service Date/Time: Monday, December 14, 2015 06:12 - CONCLUSION: 1. Cardiomegaly with bilateral consolidation, likely CHF. Pneumonia cannot be excluded. 2. Small right pleural effusion. Wojciech Lockhart MD Abdomen X-Ray 12/06/15 0000 Signed Impressions: Service Date/Time: November 09:53 - CONCLUSION: Nonspecific KUB. Air is seen within a mildly distended colon but contrast is clearly seen in the rectum. Arnaldo Reyes MD Abdomen/Pelvis CT 12/04/15 0000 Signed Impressions: Service Date/Time: Friday, December 04, 2015 16:24 - CONCLUSION: 1. Mildly distended small bowel in the mid and lower abdomen. Contrast is clearly seen extending into the distal small bowel and ascending colon so a complete obstruction is not seen. A transition point is not seen. This pattern likely represents an ileus versus a partial obstruction. 2. Multiple nonobstructing renal stones. 3. Abnormal appearance of the spleen which appears to represent a splenule. It could be correlated if the patient has had either primary splenic removal or splenic injury and this is what is either left of the spleen or a developing splenule. This is likely of no significance. 4. Mild ascites. 5. Increased density within the gallbladder representing either tumefactive sludge or noncalcified stones. 6. Mild bilateral pleural effusions with prominent areas of lower lobe atelectasis or consolidation at the bases bilaterally. 7. Subacute to chronic bilateral rib fractures and multiple compression fractures in the lower thoracic and lumbar spine as described above. The patient does have a prior CT examination from 08/26/2014. All the compression deformities described above are new when compared to that scan. Arnaldo Reyes MD Head CT 12/02/15 1013 Signed Impressions: Service Date/Time: Wednesday, December 02, 2015 11:00 - CONCLUSION: 1. No intracranial abnormality is seen. 2. Air-fluid level in the right maxillary sinus. Arnaldo Reyes MD Objective Remarks GENERAL: Middle-aged male, lying in bed, trached. remains critically ill. HEENT: NCAT. mucous membranes moist. NECK: trach in place. obese neck. difficult to assess JVD. right IJ triple lumen catheter in place, site clean RESPIRATORY: Breath sounds equal bilaterally. coarse crackles b/l. CARDIOVASCULAR: Tachycardic, regular rhythm without murmurs, rubs. GASTROINTESTINAL: Reena dressing over midline incision site. BEV drains in place , J tube in place, nondistended. BS not appreciated. MUSCULOSKELETAL: Generalized anasarca. Multiple open wounds in the lower extremity. RUE - with wound vac in place. L upper extremity dressing in place. NEURO: Sedated, opens eyes spontaneously and is easily arousable. 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 On fentanyl gtt. for sedation/analgesia. Titrate off as tolerated. - fentanyl patch 75mcg/h q3d for long acting pain control. - liquid tylenol 650mg per tube q6h. - Dilaudid 2mg iv q4h prn for breakthrough pain. - ketamine drip d/cd 12/22. - oxycodone 20mg per tube q4h scheduled to help wean off fentanyl infusion. Respiratory Acute respiratory failure-extubated 12/16/15, reintubated for surgery 12/18 Acute hypoxic and hypercarbic respiratory failure Acute healthcare associated pneumonia- resolved NIGEL on home CPAP - Tracheostomy 12/27 - Vent bundle. Head of bed at 30 degrees. Nebs q6h and q2h prn. - Continue mechanical ventilation, on C Pap/pressure support since 01/09 CV Hemorrhagic shock- resolved Septic Shock- resolved Volume overload - keep map > 65 mmHg. - Cortisol level 14 on 12/14 - Prednisone held. Decreased hydrocortisone to 50mg [id number] on 01/09. - Echo 12/07 EF 65-70%, grade I diastolic dysfunction Continue lasix Renal: DEIRDRE Hypernatremia - stopped bicarbonate drip 01/07, strict intake output, monitor and replete electrolites, follow BUN/creatinine. - On diuretics to mobilize fluid. - Removed NaCl from TPN in v/o hypernatremia FEN/GI Acute GIB, hemorrhagic shock Perforated right colon with colitis s/p ex-lap, extended right hemicolectomy with primary ileocolic anastamosis, washout, open abdomen (12/18) s/p Elap 01/05 for bleeding gastric ulcer Acute protein calorie malnutrition- severe Hypokalemia Total body volume overload Intravascular hypervolemia - Protonix BID - EGD 12/26/15 showed 2 large gastric ulcers with active bleeding status post epinephrine infusion and cauterization - ICU electrolyte protocol - Daily CMP - OR on 12/24 with Removal of VAC, washout, pancreatic drain and pelvic drain placement, gastrostomy, feeding jejunostomy and closure of abdomen with application of VAC device in the subcutaneous tissue. - TFs via jejunostomy to be resumed when OK with surgery - off TPN 01/01. TPN resumed 01/08 @ 42cc/hr with lipids. - on full TF at goal - held 01/05 for bleeding gastric ulcer s/p Elap. Ordered J tube trophic feeds to be resumed 01/10(d/w surgery on 01/09) Heme: Acute Anemia secondary to acute blood loss Thrombocytopenia Hypofibrinogenemia secondary to consumption and acute blood loss Coagulopathy secondary to consumption and acute blood loss --monitor CBC --Hep PLT ab negative on 12/03 --Platelets FFP fibrinogen as needed - Ferrous Sulfate TID - transfused 3 units PRBCs 01/05- ID Severe sepsis Necrotizing Fascitis - MSSA on wound culture 12/07. Ecoli bacteremia 12/01 MSSA bacteremia 12/05. Cleared on f/u blood culture 12/07, 12/12. Candidemia (blood culture 01/04 with Nava parapsilosis) Sepsis of Intra-abdominal origin. C. difficile toxic megacolon --Debridement 12/01 p.m at bedside by Dr Pedro and Dr. Hartmann --R hand, forearm and olecranon bursa I and D and Wound vac 12/07 Dr Chavez. -- IV cefepime,flagyl IV. Micafungin stopped per ID 01/08. Amphotericin B started by ID on 01/08 and stopped 01/09. Fluconazole started 01/09 per ID. Discussed with ID on 01/08. Nava and blood probably from an intra- abdominal source. Repeat blood cultures sent 01/08. --12/17 blood cultures: NGTD 12/17 central line culture: NGTD 12/17 urine cultures: NGTD 12/17 sputum cultures: NGTD C. difficile toxin 12/17: Negative (3rd negative toxin screen) -01/04 Blood culture with nava parapsilosis 01/04: horn culture, bronch with BAL, 01/04: CT chest/abd/pelvis without contrast: LLL consolidation, otherwise unchanged. 01/04: clinically LLL VAP. --ID Dr. Becerra Endocrine: Hyperglycemia of Critical Illness Diabetes - off Insulin drip - Moderate SSI - Levemir BID on hold. - Prednisone 10mg po daily. slow taper started however pt back on pressors after Elap on 01/06 so starting hydrocortisone 50 mg IV every 8 hourly on 01/06 Prophylaxis: GI Prophylaxis: -- Protonix IV BID DVT Prophylaxis: - SCDs Resume subcutaneous heparin when okay with general surgery Lines: -- Sandoval -- right axillary arterial line 01/04 -- right IJ TLC 01/04 Dispo: -- He remains in the ISC and severely critically ill, ventilator weaning failure , ongoing sepsis. Critical Care: The total critical care time was 45 minutes. Time to perform other separately billable procedures was not included in the critical care time. Problem Qualifiers (1) Respiratory failure: Qualified Code: J96.00 - Acute respiratory failure, unspecified whether with hypoxia or hypercapnia (2) Altered mental status: Qualified Code: R41.0 - Delirium (3) Sepsis: Qualified Code: A41.9 - Sepsis, due to unspecified organism Christopher Clark MD Jan 11, 2016 14:16
--- NOTE | 2016-01-11 17:03 | MP ---
cc: ADONAY VERDIN MD DATE OF SURGERY: 01/07/2016 PREOPERATIVE DIAGNOSIS: 1. GI bleed hemorrhagic shock extremis. 2. Pneumatosis of stomach. POSTOPERATIVE DIAGNOSIS: 1. GI bleed hemorrhagic shock extremis. 2. Pneumatosis of stomach. 3. Bleeding gastric ulcer. OPERATIVE PROCEDURE PERFORMED: 1. Exploratory laparotomy. 2. Lysis of adhesions. 3. Gastrotomy with ligation of gastric ulcer. 4. Negative pressure VAC placement. SURGEON: Dr. Adonay Verdin. PRINT PRODUCER: See OR sheet. ANESTHESIA: GETA. IV FLUIDS: 1000 cc. ESTIMATED BLOOD LOSS: 1500 cc. URINE OUTPUT: 80 cc. FINDINGS: Bright red blood and bleeding from the anterior gastric wall ulcer. COMPLICATIONS: None. SPECIMENS: None. DRAINS: VAC placement. WOUND CLASSIFICATION: Clean contaminated. INDICATIONS FOR THE PROCEDURE: The patient is a 55-year-old male with multiple medical issues and comorbidities who presented initially with altered mental status and confusion. The patient has had a pretty significant hospital surgical course including bilateral upper extremity necrotizing fasciitis, multiple abdominal exploration and washout including colectomy with ileostomy and currently having a subcutaneous VAC placement. He has a J-tube, a G-tube and several Fabrizio-Eller drains. The patient in the past 12 hours was noted to have significant bright red blood coming from the gastrotomy tube. The patient was in extremis with systolic blood pressures in the 70s on high-dose of Wesley-Synephrine and tachycardiac into the 130s. He underwent a CT scan with evaluation showing a very large gastric bleed with clot hematoma approximately 18 cm x 12 cm with concerns for pneumatosis and infarction in the gastric wall. Therefore a decision was made for operative intervention including exploratory laparotomy for evaluation. DESCRIPTION OF THE PROCEDURE IN DETAIL: The patient was taken to the operating room suite and placed in supine position. He was prepped and draped in the usual sterile fashion. The patient already had tracheostomy and general anesthesia. A brief time-out was done stating correct patient, procedure and surgical site. The patient's subcutaneous VAC was removed. The fascia was identified. The sutures approximating the fascia were cut and the abdomen was opened. Upon opening the abdomen, there was minimal serous fluid. There was noted to be a very large distended stomach. The stomach was noted to be viable, however, extremely hard and compressed with clot hematoma. The abdomen was further explored. Adhesions were taken down around the stomach, the proximal liver and the left upper quadrant in order to fully evaluate the stomach. The G tube was in place. The sutures were cut for the G tube and the G tube was deflated and removed. Upon doing so, there were multiple clots mixed with bright red blood coming from the G tube site. The G tube site was then extended both proximal and distal in order to do a complete gastrotomy tube to evacuate significant amounts of clot. Once the clots were all removed, greater than a liter of this was removed. The exploration of the gastric mucosa was done with findings of anterior 0.5 cm gastric ulcer. The gastric ulcer was noted to be actively bleeding. At this time, the ulcer was oversewn with 3-0 Vicryl sutures. At this point, ___ the bleeding was stopped, again the abdomen was thoroughly irrigated. Next the gastrotomy was then closed using a 3-0 Vicryl running suture to the submucosal layer and seromuscular layer. Following this, Lembert sutures were placed with 3-0 silk sutures in an interrupted fashion. Once this was done, hemostasis was achieved and the patient was noted to have any more bleeding. The NG tube was then advanced down near the pylorus. This was placed to suction. Next, once we were satisfied with this, some exploration of the bowel was done with gross appearance to be pretty viable. Given the concerning findings on the CT scan, the fact that the patient was in extremis on a high dose Wesley and hemorrhagic shock, decision was made for temporary abdominal closure with VAC assisted device. The 10/10 drape was placed after holes were punctured around the small bowel and placed in the abdomen. The blue sponges were then placed and Fabrizio-Eller drains were obtained and placed as well. Ioban was then placed to complete the abdominal closure. The Fabrizio-Eller drains were placed to wall suction. All lap and instrument counts were correct at the end of the procedure. The patient was noted to continue in extremis but was improving and was able to de-escalate the doses of Wesley. The VAC had good seal. All lap and instrument counts were correct. The patient did tolerate the procedure and he was again in extremis. He remained on the ventilator and taken to the intensive care unit. MD JULIEN Chávez/BIANCA /12:38 PM /4:49 PM MTDJamia
[2016-01-11] MEDS: POTASSIUM CHLOR 40 MEQ PREMIX 100 ML IV PRN ×2 (17:38→19:19)
--- NOTE | 2016-01-11 19:23 | HHI.IDPN ---
Subjective Subjective Remarks remained stable today tolerated CPAP and now on Tpiece On TPN, but started on trickle feeds off pressors afebrile He grew out C. parapsilosa and AMB was changed to fluconazole Antibiotics cefepime IV, IV flagyl fluconazole Lines RSC TLC Past Medical History RA HCV sp splenectomy Allergies: Coded Allergies: Compazine (Verified Allergy, Severe, VOMITING, RASH, 08/26/14) SLURRED SPEECH, MIGRAINES Demerol (Verified Allergy, Severe, VOMITING, 08/26/14) Levaquin (Verified Allergy, Severe, 08/26/14) Penicillin (Verified Allergy, Severe, Rash, 08/26/14) Phenergan (Verified Allergy, Severe, VOMITING, 08/26/14) Uncoded Allergies: ANTI-CONVULSIVES (Allergy, Severe, MIGRAINES, SLURRED SPEECH,, 01/23/14) Objective . Vital Signs Date Time Temp Pulse Resp B/P Pulse Ox O2 Delivery O2 Flow Rate FiO2 01/11/16 18:00 94 01/11/16 16:00 96 01/11/16 16:00 98.2 103 19 130/89 97 01/11/16 14:55 22 01/11/16 14:55 22 01/11/16 14:00 97 01/11/16 12:00 35 01/11/16 12:00 98.0 108 22 142/103 99 01/11/16 12:00 113 01/11/16 10:00 102 01/11/16 08:00 97.9 96 24 135/85 92 01/11/16 08:00 35 01/11/16 08:00 106 01/11/16 07:25 97 35 01/11/16 06:00 99 01/11/16 04:21 95 35 01/11/16 04:00 35 01/11/16 04:00 111 01/11/16 04:00 98.1 111 21 152/104 97 01/11/16 02:00 102 01/11/16 00:39 97 35 01/11/16 00:00 97.7 104 24 146/96 97 Arterial Line 01/11/16 00:00 104 01/11/16 00:00 35 01/10/16 22:00 100 01/10/16 20:01 100 40 01/10/16 20:00 90 01/10/16 20:00 40 01/10/16 20:00 97.4 90 9 108/74 100 01/10/16 01/10/16 01/11/16 14:59 22:59 06:59 Intake Total 1083 ml 1984 ml Output Total 960 ml 170 ml 1350 ml Balance 123 ml -170 ml 634 ml IV Total 739 ml 956 ml TPN/PPN 344 ml 668 ml Lipid 240 ml Tube Irrigant 120 ml Output Urine Total 400 ml 575 ml Stool Total 100 ml 175 ml Gastric Drainage Total 100 ml 175 ml Drainage Total 360 ml 170 ml 425 ml . Laboratory Tests Test 01/11/16 04:07 White Blood Count 26.3 TH/MM3 Red Blood Count 3.26 MIL/MM3 Hemoglobin 9.9 GM/DL Hematocrit 28.7 % Mean Corpuscular Volume 88.0 FL Mean Corpuscular Hemoglobin 30.2 PG Mean Corpuscular Hemoglobin 34.4 % Concent Red Cell Distribution Width 15.1 % Platelet Count 170 TH/MM3 Mean Platelet Volume 10.4 FL Neutrophils (%) (Auto) 89.5 % Lymphocytes (%) (Auto) 3.0 % Monocytes (%) (Auto) 6.3 % Eosinophils (%) (Auto) 0.0 % Basophils (%) (Auto) 1.2 % Neutrophils # (Auto) 23.5 TH/MM3 Lymphocytes # (Auto) 0.8 TH/MM3 Monocytes # (Auto) 1.7 TH/MM3 Eosinophils # (Auto) 0.0 TH/MM3 Basophils # (Auto) 0.3 TH/MM3 CBC Comment AUTO DIFF Differential Comment AUTO DIFF CONFIRMED Laboratory Tests Test 01/10/16 01/11/16 04:40 04:07 Sodium Level 146 MEQ/L 145 MEQ/L Potassium Level 3.5 MEQ/L 3.0 MEQ/L Chloride Level 110 MEQ/L 110 MEQ/L Carbon Dioxide Level 21.4 MEQ/L 22.0 MEQ/L Anion Gap 15 MEQ/L 13 MEQ/L Blood Urea Nitrogen 56 MG/DL 59 MG/DL Creatinine 1.64 MG/DL 1.81 MG/DL Estimat Glomerular Filtration 44 ML/MIN 39 ML/MIN Rate Random Glucose 153 MG/DL 189 MG/DL Calcium Level 6.9 MG/DL 7.0 MG/DL Protein Corrected Calcium 8.6 MG/DL 8.5 MG/DL Total Bilirubin 1.9 MG/DL 1.7 MG/DL Aspartate Amino Transf 94 U/L 54 U/L (AST/SGOT) Alanine Aminotransferase 81 U/L 65 U/L (ALT/SGPT) Alkaline Phosphatase 184 U/L 196 U/L Total Protein 4.0 GM/DL 4.3 GM/DL Albumin 1.1 GM/DL 1.2 GM/DL Phosphorus Level 4.7 MG/DL Magnesium Level 1.5 MG/DL Microbiology Date/Time Procedure Status Source Growth 01/09/16 23:45 Aerobic Blood Culture - Preliminary Resulted Blood Peripheral NO GROWTH IN 1 DAY 01/09/16 23:45 Anaerobic Blood Culture - Preliminary Resulted Blood Peripheral NO GROWTH IN 1 DAY 01/10/16 00:00 Aerobic Blood Culture - Preliminary Resulted Blood Peripheral NO GROWTH IN 1 DAY 01/10/16 00:00 Anaerobic Blood Culture - Preliminary Resulted Blood Peripheral NO GROWTH IN 1 DAY Imaging Last Impressions Chest X-Ray 01/07/16 0000 Signed Impressions: Service Date/Time: Thursday, January 07, 2016 04:23 - CONCLUSION: Worsening consolidation or atelectasis at the left mid and lower lung. Some degree of left effusion may also be contributing to this. Arnaldo Reyes MD Abdomen/Pelvis CT 01/06/16 0000 Signed Impressions: Service Date/Time: Wednesday, January 06, 2016 22:07 - CONCLUSION: 1. Over the last day there is development of a large mass in the left upper quadrant measuring up to 18 x 13 cm which appears to be associated with the stomach. The mass is characterized by somewhat concentric areas of decreased and increased attenuation with multiple locules of air. Primary differential diagnosis is hemorrhage into the gastric wall with gastric pneumatosis and possibly gastric ischemia. Gastrostomy is again noted anteriorly. 2. Remainder the exam is relatively stable with drainage tube left upper quadrant, splenectomy, bilateral effusions, feeding jejunostomy and drain within the pelvis. There is also diffuse anasarca and nonobstructing renal calculi. Nomi Falcon MD Chest CT 01/05/16 0000 Signed Impressions: Service Date/Time: Tuesday, January 05, 2016 23:15 - CONCLUSION: 1. Persistent left lower lobar consolidation. Improved consolidative infiltrates in the right lower lung. 2. Interval increase size bilateral pleural effusions , left greater than right. Osmar Alegria MD Celiac/Hepatic Arteriogram 12/27/15 0000 Signed Impressions: Service Date/Time: December 13:41 - CONCLUSION: 1. No active GI bleed identified. Robert Mckinney MD Abdomen X-Ray 12/18/15 0000 Signed Impressions: Service Date/Time: Friday, December 18, 2015 16:05 - CONCLUSION: Feeding tube tip is at the gastric antrum. Arnaldo Elias MD Head CT 12/02/15 1013 Signed Impressions: Service Date/Time: Wednesday, December 02, 2015 11:00 - CONCLUSION: 1. No intracranial abnormality is seen. 2. Air-fluid level in the right maxillary sinus. Arnaldo Reyes MD Physical Exam GENERAL: On vent , sedated intubated, unresponsive SKIN: + minimal jaundice. Anasarca HEENT: + mild icterus, no nasal discharge Chemosis + NECK: Trach in place CARDIOVASCULAR: systolic murmur in base of heart RESPIRATORY/CHEST: scattered rhonchi on auscultation.L side with crackes GASTROINTESTINAL: dressing in place JPs in place with serous drainage Stoma with brown stool Inciosion with dressing in place- brown d/c noted on inferior aspect GENITOURINARY: Sandoval catheter in place with clear light yellow urine with sediment MUSCULOSKELETAL: Extremities no cyanosis, edema 3+ pitting with poorly healing wounds RUE with VAC in place, serosang dc NEUROLOGICAL: sedated LINES: NO evidence of infection Assessment & Plan Remarks Sepsis related to Cdiff and Intra abdominal peritonitis. - sp subtotal colectomy and ileostomy SP colon perfocation and intraperitoneal gross contamination ? Cdiff Colitis Noted Cdiff PCR is negative3/3 ? Zinc preparation in perianal care could cause false negative test. Path c/o Cdiff Colitis. - repeat path favouring ischemia RUE severe nec fasc due to MSSA - skin grafting was planned, but cancelled - S/P I and D x 3 - clinically resolved MSSA bacteremia 2/2 RUE infx - resolved E.coli bacteremia on presentation -source is likely gut Immunosuppressed on steroids, s/p splenectomy. PCN allergy, but no probs with Keflex per report. ARF/ DEIRDRE/ATN 2/2 sepsis -stable Recurretn life threatening upper GI bleeding 2/2 bleeding ulcers Persistent leukocytosis - liekly reactive leukocytosis 2/2 massive gstic bleeding C. parapsilosa fungemia ? sourece intraabd vs (less likely) line PLAN: Continue IV cefepime,flagyl IV, cont fluconazole fu repeat blood clx fu WBC D/W RN kwame puente at b/s Argelia Becerra MD Jan 11, 2016 19:23
[2016-01-11] MEDS: CLINIMIX 4.25/25 (Cust.Renal Central) 1000 mL- </= 42 mls/hr IV-CENTRAL SCH ×8 (20:58)
[2016-01-11] MEDS: FAT EMULSION 20% INJ 250 ML (Daily over 8 hours) IV-CENTRAL SCH (21:00)
[2016-01-11] MEDS: VASOPRESSIN INJ 40 UNITS in DEXTROSE 5% IN WATER 100ML INJ 98 ML IV SCH ×2 (22:10)
--- NOTE | 2016-01-11 23:17 | HHI.PR ---
Subjective Subjective Notes Sedated off pressors. Abdominal wound closed with HELENA dressing in place. Objective Vitals/I&O Vital Signs Date Time Temp Pulse Resp B/P Pulse Ox O2 Delivery O2 Flow Rate FiO2 01/11/16 22:00 101 01/11/16 20:00 97.2 13 146/100 100 01/11/16 19:31 T-piece 35 Labs Laboratory Tests Test 01/11/16 04:07 White Blood Count 26.3 Red Blood Count 3.26 Hemoglobin 9.9 Hematocrit 28.7 Mean Corpuscular Volume 88.0 Mean Corpuscular Hemoglobin 30.2 Mean Corpuscular Hemoglobin 34.4 Concent Red Cell Distribution Width 15.1 Platelet Count 170 Mean Platelet Volume 10.4 Neutrophils (%) (Auto) 89.5 Lymphocytes (%) (Auto) 3.0 Monocytes (%) (Auto) 6.3 Eosinophils (%) (Auto) 0.0 Basophils (%) (Auto) 1.2 Neutrophils # (Auto) 23.5 Lymphocytes # (Auto) 0.8 Monocytes # (Auto) 1.7 Eosinophils # (Auto) 0.0 Basophils # (Auto) 0.3 CBC Comment AUTO DIFF Differential Comment AUTO DIFF CONFIRMED Sodium Level 145 Potassium Level 3.0 Chloride Level 110 Carbon Dioxide Level 22.0 Anion Gap 13 Blood Urea Nitrogen 59 Creatinine 1.81 Estimat Glomerular Filtration 39 Rate Random Glucose 189 Calcium Level 7.0 Protein Corrected Calcium 8.5 Phosphorus Level 4.7 Magnesium Level 1.5 Total Bilirubin 1.7 Aspartate Amino Transf 54 (AST/SGOT) Alanine Aminotransferase 65 (ALT/SGPT) Alkaline Phosphatase 196 Total Protein 4.3 Albumin 1.2 Random Vancomycin Level 42.2 Date/Time Procedure Status Source Growth 01/10/16 00:00 Aerobic Blood Culture - Preliminary Resulted Blood Peripheral NO GROWTH IN 1 DAY 01/10/16 00:00 Anaerobic Blood Culture - Preliminary Resulted Blood Peripheral NO GROWTH IN 1 DAY Radiology Last Impressions Chest X-Ray 12/28/15 0000 Signed Impressions: Service Date/Time: Monday, December 28, 2015 14:23 - CONCLUSION: Large left pleural effusion and left lung base consolidation. Freddy Connor MD Abdomen/Pelvis CT 12/19/15 0000 Signed Impressions: Service Date/Time: Saturday, December 19, 2015 10:57 - CONCLUSION: 1. Adjacent volume pneumoperitoneum is observed consistent with perforation of a hollow viscus. This is presumably colonic in origin due to the diffuse inflammatory process involving the colon. I do not clearly identify the source of the pneumoperitoneum however. There is mild dilatation of the small bowel likely an ileus in nature. A significant volume of ascitic fluid is noted. 2. Bibasilar atelectasis and bilateral pleural effusions. 3. Small pericardial effusion. 4. Small bilateral nonobstructing renal calculi. 5. I spoke with Dr. Sanchez concerning the findings. Osmar Chavez Jr., MD Abdomen X-Ray 12/18/15 0000 Signed Impressions: Service Date/Time: Friday, December 18, 2015 16:05 - CONCLUSION: Feeding tube tip is at the gastric antrum. Arnaldo Elias MD Chest CT 12/14/15 0000 Signed Impressions: Service Date/Time: Monday, December 14, 2015 06:12 - CONCLUSION: 1. Cardiomegaly with bilateral consolidation, likely CHF. Pneumonia cannot be excluded. 2. Small right pleural effusion. Wojciech Lockhart MD Head CT 12/02/15 1013 Signed Impressions: Service Date/Time: Wednesday, December 02, 2015 11:00 - CONCLUSION: 1. No intracranial abnormality is seen. 2. Air-fluid level in the right maxillary sinus. Arnaldo Reyes MD Lungs: Clear Abdomen: Non-distended Extremities: Other (Peripheral edema with anasarca) Narrative Exam HELENA dressing changed; wound clean with minimal drainage present. A/P Problem List: (1) Dependent on ventilator (2) Open wound of abdomen (3) Ileostomy in place (4) Jejunostomy tube present (5) S/P total colectomy (6) Acute colitis (7) Gastrostomy tube in place Assessment and Plan PO for colon resection and takeback, now stable. WBC's remain elevated Plan: Per critical care and plastics. HELENA dressing changed today Problem Qualifiers (1) Open wound of abdomen: Qualified Code: S31.109D - Open wound of abdomen, subsequent encounter Owen Soto MD Jan 11, 2016 23:17
[2016-01-12] VITALS (18 sets, daily range): BP systolic 129–159; BP diastolic 61–105; PULSE 100–128; RESP 9–29; TEMP 97.9–98.8; O2SAT 96–99
[2016-01-12] MEDS: HYDROmorphone HCL PF 2 MG/ML VIAL IV PUSH PRN (00:58)
[2016-01-12] MEDS: oxyCODONE HCL ORAL CONC 20 MG/ML SYRINGE PO SCH ×6 (01:00→21:49)
[2016-01-12] MEDS: CHLORHEXIDINE GLUCONATE 2 % 1 PACK (2 CLOTHS) TOP SCH (04:00)
[2016-01-12] MEDS: metroNIDAZOLE 500 MG INJ 100 ML IV SCH ×3 (04:42→21:48)
[2016-01-12] MEDS: ACETAMINOPHEN 650 MG/20.3 ML UDC PO SCH ×4 (04:42→21:48)
[2016-01-12 05:55] LABS: POTASSIUM 3.3 MEQ/L (3.5-5.1)
[2016-01-12] MEDS: METOPROLOL TARTRATE 5 MG/5 ML VIAL IV PUSH SCH ×3 (06:06→21:49)
[2016-01-12] MEDS: CEFEPIME INJ 2,000 MG in SODIUM CHLORIDE 0.9% INJ 100 ML IV SCH (06:06)
[2016-01-12] MEDS: HYDROCORTISONE SOD SUCCINATE 100 MG VIAL IV PUSH SCH ×2 (06:06→21:50)
[2016-01-12] MEDS: INSULIN ASPART SUPPLEMENTAL SCALE SQ SCH ×3 (06:07→18:02)
--- NOTE | 2016-01-12 07:13 | RADRPT ---
EXAM DATE/TIME: 01/12/2016 06:56 [facility] COMPARISON: CHEST SINGLE AP, January 07, 2016, 4:23. INDICATIONS : follow up to Respiratory failure MEDICAL HISTORY : Hypertension. Hepatitis C. Hiatal hernia. SURGICAL HISTORY : Splenectomy. Inguinal hernia repair ENCOUNTER: Subsequent ACUITY: 2 months PAIN SCORE: Non-responsive. LOCATION: Bilateral chest FINDINGS: Single AP view of the chest. Tracheostomy tube, nasogastric tube, right IJ central venous catheter re main in place. Persistent left lower lobe consolidation versus atelectasis and left pleural effusion. Mild patchy opacity in the right mid to lower lung. No evidence of pneumothorax. No significant inte rval change allowing for differences in positioning. CONCLUSION: No significant interval change. Persistent left lower lobe consolidation versus atelectasis and left pleural effusion as well as patchy right lung base opacity Aakash Frederick MD on January 12, 2016 at 7:09 Board Certified Radiologist. This report was verified electronically.
[2016-01-12] MEDS: CHLORHEXIDINE 0.12% (ORAL KIT) 15 ML CUP MT SCH ×2 (09:54→20:00)
[2016-01-12] MEDS: FUROSEMIDE 20 MG/2 ML VIAL IV PUSH SCH ×2 (09:56→18:00)
[2016-01-12] MEDS: POVIDONE IODINE 10% OINT 30 GM TUBE TOPICAL SCH (09:57)
[2016-01-12] MEDS: NEOMYCIN/POLYMYXIN/BACITRACIN OINT 15 GM TUBE TOPICAL SCH ×2 (09:57→21:00)
[2016-01-12] MEDS: PANTOPRAZOLE SODIUM 40 MG VIAL IV PUSH SCH ×2 (10:01→21:49)
[2016-01-12] MEDS: POTASSIUM CHLOR 40 MEQ PREMIX 100 ML IV PRN (10:17)
[2016-01-12 10:45] LABS: BASOPHIL % 0.2 % (0.0-2.0); HEMATOCRIT 29.4 % (39.0-51.0); LYMPHOCYTE # 0.5 TH/MM3 (1.0-4.8); MEAN CORPUSCULAR HEMOGLOBIN 28.4 PG (27.0-34.0); MEAN CORPUSCULAR HGB CONC 32.3 % (32.0-36.0); MONO % 4.8 % (0.0-8.0); PLATELET COUNT 194 TH/MM3 (150-450); RED BLOOD COUNT 3.34 MIL/MM3 (4.50-5.90); RED CELL DISTRIBUTION WIDTH 15.8 % (11.6-17.2); WHITE BLOOD COUNT 25.8 TH/MM3 (4.0-11.0)
[2016-01-12 10:48] LABS: HEMO FLAGS AUTO DIFF
[2016-01-12 11:07] LABS: ALKALINE PHOSPHATASE 223 U/L (45-117); ALT (GPT) 48 U/L (12-78); ANION GAP 11 MEQ/L (5-15); AST (GOT) 35 U/L (15-37); BICARBONATE 21.4 MEQ/L (21.0-32.0); BLOOD UREA NITROGEN 68 MG/DL (7-18); CHLORIDE 111 MEQ/L (98-107); GLOMERULAR FILTRATION RATE 34 ML/MIN (>89); POTASSIUM 3.1 MEQ/L (3.5-5.1); SODIUM (NA) 143 MEQ/L (136-145)
[2016-01-12 11:21] LABS: SCAN/DIFF AUTO DIFF CONFIRMED
--- NOTE | 2016-01-12 11:50 | HHI.CCPN ---
Subjective Remarks/Hospital Course 55-year-old male brought by EMS with altered mental status. He has been confused for 2 days but this morning has been the worst. He has history of chronic opiate medications including methadone and morphine that he takes for pain management and hence they gave him Narcan IV which brought the GCS up to 13. The blood glucose was 74. He has open wounds from his right upper and bilateral lower extremities. He has history of hepatitis C. Last week he was pealing and eating shrimps. Bedside blood sugar was 76 in the ER. He was tachycardic in 1 teens and was intubated in the ED for airway protection. Admitted to ICU with sepsis due to Staph Aureus hand infection and E. Coli bacteriemia. 12/05 Patient remains sedated with Fentanyl and intubated. On Levophed 3 mics, Vasopressin 0.03 mics and Bicarb drip. T:99.8 TF placed on hold OGT to LIWS last night - gastric drainage 525ml overnight. 12/06 Patient is sedated with Fentanyl and intubated, On Levophed 3 mics, off vasopressin. Gastric output 400ml in 24 hrs. KUB abdomen yesterday mildly distended colon otherwise non specific KUB. 12/07 Patient is off sedation remains intubated tolerated CPAP for most day yesterday. Afebrile. on no drips, tolerating tube feeds. 12/08 Patient went to OR yesterday for debridement and irrigation of right forearm and wound VAC placement. Given 2U PRBC and 2u PLT yesterday and currently receiving 1of 2 u additional PRBC. Hgb 7.7, PLT 43 this morning. Patient also started on pressors now on Levophed 10 mics. Vasopressin 0.04 mics. On no sedation. 12/09 Patient remains intubated off pressors, Afebrile. Tolerating tube feeds. Afebrile. 12/10 Patient is sedated with Fentanyl and intubated. Awake and follows commands off sedation. Afebrile. 12/11 Patient had ?SVT overnight given Lopressor 2.5mg IV x1, Remains intubated and sedated with Fentanyl. Afebrile. Tolerating TF. 12/12 Patient spoked fever last night with T: 101.5, sedated with Fentanyl and intubated. 12/13 Patient had an episode of desaturation overnight required increase FIO2/ PEE now on ACV with RR 14, TV 550, PEEP: 12, FIO2 60% with sats 100% CT chest performed overnight showed b/l consolidation and small pleural effusion. Had T: 100.0 last night. 12/14 Tolerating PS 15/CPAP 10 FiO2 40% with rSBI 38, weaning. . Awake and alert , following commands. Hypotensive overnight and levophed restarted up to 12 mcg/ min. Nurse has been weaning throughout the day. Suspected adrenal insufficiency as he was on prednisone as outpatient for gout and has not been on stress dose steroids. Given decadron. 12/15 Transfused 1 unit PRBC for Hgb 7.0 yesterday, 1 unit PRBC for Hgb 6.6 today and now Hgb 8.3. Does not clinically have e/o active GI bleeding and wound vac output nonbloody. Stool 1500 output, C diff negative. No abdominal pain. Remains Awake and alert, remained on CPAP 10/5 last night and is now tolerating CPAP 5/5. 12/16: Extubated yesterday tolerating well. Breathing comfortably. Able to follow commands. UO 1.8 L in 24 hours. Na slightly increased to 153. 12/17: Significantly worse this AM. WBC up to 28 from 16. Hgb 5.2 from 7.9. tachycardic. pale this AM. states he feels tired. Continues on BiPAP. Plan for debridement of his arms today. LIJ CVL does not have any signs of overt infection. 12/18: Blood cell count continues to rise today to 30 from 28. Required 1 unit of blood for hemoglobin of 6.6 which improved to 7.7 this morning. However, patient remains tachycardic in the 120s and significantly pale. CT abdomen and pelvis ordered and pending. Tachypneic with respiratory rate in the 30s. Only small amount of dark tarry stool yesterday with approximately 300 cc of stool output. C. difficile toxin negative 3. After discussion with infectious disease, restart vancomycin, cefepime, Flagyl, micafungin. Horn cultures are pending. Per discussion with GI, will not scope as endoscopy is high risk given his tenuous respiratory status this point. Slightly worse hypernatremia as well as worsening acute kidney injury this morning. 12/19: POD 1 s/p ex-lap, washout for perforated ascending colon with extended right hemicolectomy, primary ileocolic anastamosis, open abdomen, septic shock, acute hypoxic and hypercarbic respiratory failure. Significantly critically ill overnight: required 6L ivf resuscitation, 1 unit prbc, norepinephrine, vasopressin, stress dose hydrocortisone. This morning, remains on high-dose vasopressors. still has large volume ivf requirement. Significant SIRS response. Vent requirements increasing with all this volume resuscitation, PEEP up to 10. He remains critically ill, and although I do believe we have surgical source control, I anticipate he will continue to clinically decline before he starts to make improvements. 12/20: Off pressors. follows commands on sedation holiday. +11L over last 3 days during acute illness, +22L since admission. We are going to have to get some of this volume back before we are able to close him given his severe anasarca. 12/21: Taken back to the OR yesterday afternoon for washout and completion colectomy. Postoperatively was significantly under resuscitated as well as had ongoing active oozing. Patient was coagulopathy. The patient was in distributive and hemorrhagic shock. The patient was given multiple units of blood products overnight. Patient was thrombocytopenic, hypofibrinogenemic, coagulopathic. Given significant volume of blood product resuscitation: 24h blood products: 13 prbc 8 ffp 2 plt 1 10-pack cryo This morning continues to have significant amount of bright red output out of his BEV and wound VAC, approximately 500 cc an hour out of his wound VAC, and approximately 75 an mils every 10 minutes out of a BEV. I discussed with surgery and we will correct his coagulopathy and plan to go back to the OR for exploration early this afternoon. 12/22: Clinically starting to improve hemodynamically. off vasopressors. Net+ 26L. CVP rising to 14. UOP adequate. Hgb 7 this AM. 12/23 Seen postop. Hypertensive, BP improved with additional pain medicine. Remains net positive but urine output excellent 3L in 24 hours. Remains on Lasix gtt. went to OR today status post wound VAC change and partial closure 12/24: Fascia was closed yesterday. Wound Vac in place. Remains sedated. -2L negative balance, but with increasing BUN/creat. Discontinue Bumex infusion, start scheduled Bumex 2 mg IV every 12 with IV albumin. 12/25: Overnight became hypotensive requiring Levophed to be restarted. Hemoglobin dropped to 4.1. Noted to have bloody drainage from G-tube and dorsal ileostomy with black stool output 12/26: s/p EGD yesterday-2 gastric ulcers bleeding, stomach a significant part had decreased discoloration indicating probable ischemia. s/p epi injection and cauterization. Continues to have coffee ground G tube output, black tarry Ileostomy output. Hemoglobin down to 6.4 getting 2 units of PRBC. GI recent recommending intervention radiology consult. 12/27: For trach today. Meds ordered. Hgb decline consistent with recent transfusions and senescent cells. 12/28: Trach clean, dry. Start SBTs. Check prealbumin. Continue TPN. 12/29: Looks in direction of voice. I have not seen more purposeful reactions. Line > 12 days old, replace today. Prealbumin 20 - good response to TPN. 12/30: Remains vented, encephalopathic, puss like drainage from left hand, WBC increased 01/01: no significant changes. continues to remain critically ill with minimal improvements over the last week. abdomen closed. still total body volume overloaded. 01/02: more awake today than yesterday. continues to be critically ill with minimal improvements overall. need to look towards placement. -900 yesterday. 01/03: up in chair yesterday. tolerated short run of SBT 15/5/40%. net euvolemic. wbc downtrending. 01/04: wbc slightly uptrended 33 from 30, more acidotic on BMP (14 from 20). Also spiking fevers to 102.3 despite tylenol. continues on broad spectrum abx. yesterday's cxr had what may be a new LLL infiltrate. today, though, he is following commands and more awake and alert. 01/05: LLL pna clinically and based on bronch. CT c/a/p done last night without any significant intra-abdominal change. small left pleural effusion which appears simple in nature, and LLL consolidation. ID broadened abx. today , wbc downtrending. culture data pending. Hgb 7 this AM. 01/06: Underwent exploratory laparotomy last night with findings of bleeding gastric ulcer which was oversewn by Dr. Verdin abdomen left open with wound VAC in place. Received 3 units PRBCs overnight. Remains on Wesley-Synephrine drip this morning for hypotension. Remains sedated, on mechanical ventilation. 01/07: Remains sedated, on mechanical ventilation. For abdominal incision site closure today. Significant positive fluid balance over the last 2 days. Off pressors currently. Lasix to mobilize fluid. 01/08: Remains sedated, on mechanical ventilation via tracheostomy. Underwent abdominal incision site closure this morning. Remains off pressors. Anasarca noted. Blood cultures from 01/04 growing Nava parapsilosis. 01/09: Drowsy/sedated, arousable, on mechanical ventilation via tracheostomy. TPN started yesterday. To be started on J-tube feeds per discussion with surgery 01/10: Sedated, arousable, on mechanical ventilation via tracheostomy. Remains on TPN. J-tube feeds being started today. 01/11: Was on T piece yesterday and rested on C Pap overnight. On TPN. Advanced J-tube feeds to 20 cc an hour today. Attempt T piece as tolerated. Objective Vital Signs Date Time Temp Pulse Resp B/P Pulse Ox O2 Delivery O2 Flow Rate FiO2 01/12/16 08:00 109 01/12/16 08:00 98.1 20 149/97 98 01/12/16 08:00 50 01/12/16 07:28 Ventilator Intake and Output 01/11/16 01/11/16 01/12/16 08:00 16:00 00:00 Intake Total 622 ml 629 ml 969 ml Output Total 650 ml 645 ml 1150 ml Balance -28 ml -16 ml -181 ml Result Diagram: 01/12/16 1015 01/12/16 1019 Imaging Last 48 hours Impressions Chest X-Ray 01/07/16 0000 Signed Impressions: Service Date/Time: Thursday, January 07, 2016 04:23 - CONCLUSION: Worsening consolidation or atelectasis at the left mid and lower lung. Some degree of left effusion may also be contributing to this. Arnaldo Reyes MD Chest X-Ray 01/06/16 0000 Signed Impressions: Service Date/Time: Wednesday, January 06, 2016 19:46 - CONCLUSION: 1. Basilar airspace disease improved from January 04. Tracheostomy and right central line in satisfactory position. Noim Falcon MD Abdomen/Pelvis CT 01/06/16 0000 Signed Impressions: Service Date/Time: Wednesday, January 06, 2016 22:07 - CONCLUSION: 1. Over the last day there is development of a large mass in the left upper quadrant measuring up to 18 x 13 cm which appears to be associated with the stomach. The mass is characterized by somewhat concentric areas of decreased and increased attenuation with multiple locules of air. Primary differential diagnosis is hemorrhage into the gastric wall with gastric pneumatosis and possibly gastric ischemia. Gastrostomy is again noted anteriorly. 2. Remainder the exam is relatively stable with drainage tube left upper quadrant, splenectomy, bilateral effusions, feeding jejunostomy and drain within the pelvis. There is also diffuse anasarca and nonobstructing renal calculi. Nomi Falcon MD Last Impressions Chest X-Ray 12/17/15 0600 Signed Impressions: Service Date/Time: Thursday, December 17, 2015 03:25 - CONCLUSION: Persistent left lower lobe consolidation. Osmar Alegria MD Chest CT 12/14/15 0000 Signed Impressions: Service Date/Time: Monday, December 14, 2015 06:12 - CONCLUSION: 1. Cardiomegaly with bilateral consolidation, likely CHF. Pneumonia cannot be excluded. 2. Small right pleural effusion. Wojciech Lockhart MD Abdomen X-Ray 12/06/15 0000 Signed Impressions: Service Date/Time: November 09:53 - CONCLUSION: Nonspecific KUB. Air is seen within a mildly distended colon but contrast is clearly seen in the rectum. Arnaldo Reyes MD Abdomen/Pelvis CT 12/04/15 0000 Signed Impressions: Service Date/Time: Friday, December 04, 2015 16:24 - CONCLUSION: 1. Mildly distended small bowel in the mid and lower abdomen. Contrast is clearly seen extending into the distal small bowel and ascending colon so a complete obstruction is not seen. A transition point is not seen. This pattern likely represents an ileus versus a partial obstruction. 2. Multiple nonobstructing renal stones. 3. Abnormal appearance of the spleen which appears to represent a splenule. It could be correlated if the patient has had either primary splenic removal or splenic injury and this is what is either left of the spleen or a developing splenule. This is likely of no significance. 4. Mild ascites. 5. Increased density within the gallbladder representing either tumefactive sludge or noncalcified stones. 6. Mild bilateral pleural effusions with prominent areas of lower lobe atelectasis or consolidation at the bases bilaterally. 7. Subacute to chronic bilateral rib fractures and multiple compression fractures in the lower thoracic and lumbar spine as described above. The patient does have a prior CT examination from 08/26/2014. All the compression deformities described above are new when compared to that scan. Arnaldo Reyes MD Head CT 12/02/15 1013 Signed Impressions: Service Date/Time: Wednesday, December 02, 2015 11:00 - CONCLUSION: 1. No intracranial abnormality is seen. 2. Air-fluid level in the right maxillary sinus. Arnaldo Reyes MD Objective Remarks GENERAL: Middle-aged male, lying in bed, trached. HEENT: NCAT. mucous membranes moist. NECK: trach in place. obese neck. difficult to assess JVD. right IJ triple lumen catheter in place, site clean RESPIRATORY: C Pap/T piece as tolerated Breath sounds equal bilaterally. coarse crackles b/l. CARDIOVASCULAR: Tachycardic, regular rhythm without murmurs, rubs. GASTROINTESTINAL: Reena dressing over midline incision site. BEV drains in place , J tube in place, nondistended. BS not appreciated. MUSCULOSKELETAL: Generalized anasarca. Multiple open wounds in the lower extremity. RUE - with wound vac in place. L upper extremity dressing in place. NEURO: Drowsy, opens eyes spontaneously and is easily arousable. Follows commands. 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 - liquid tylenol 650mg per tube q6h. - Dilaudid 2mg iv q4h prn for breakthrough pain. - ketamine drip d/cd 12/22. - oxycodone 20mg per tube q4h scheduled. Respiratory Acute respiratory failure-extubated 12/16/15, reintubated for surgery 12/18 Acute hypoxic and hypercarbic respiratory failure Acute healthcare associated pneumonia- resolved NIGEL on home CPAP - Tracheostomy 12/27 - Vent bundle. Head of bed at 30 degrees. Nebs q6h and q2h prn. - on C Pap/pressure support since 01/09, T piece trials since 01/10. Will attempt T piece as tolerated. CV Hemorrhagic shock- resolved Septic Shock- resolved Volume overload - keep map > 65 mmHg. - Cortisol level 14 on 12/14 - Prednisone held. Decreased hydrocortisone to 50mg [id number] on 01/10. - Echo 12/07 EF 65-70%, grade I diastolic dysfunction Increase lasix to 40mg IV Q8hrly Renal: DEIRDRE Hypernatremia - stopped bicarbonate drip 01/07, strict intake output, monitor and replete electrolites, follow BUN/creatinine. - On diuretics to mobilize fluid. - Removed NaCl from TPN in v/o hypernatremia FEN/GI Acute GIB, hemorrhagic shock Perforated right colon with colitis s/p ex-lap, extended right hemicolectomy with primary ileocolic anastamosis, washout, open abdomen (12/18) s/p Elap 01/05 for bleeding gastric ulcer Acute protein calorie malnutrition- severe Hypokalemia Total body volume overload Intravascular hypervolemia - Protonix BID - EGD 12/26/15 showed 2 large gastric ulcers with active bleeding status post epinephrine infusion and cauterization - ICU electrolyte protocol - Daily CMP - OR on 12/24 with Removal of VAC, washout, pancreatic drain and pelvic drain placement, gastrostomy, feeding jejunostomy and closure of abdomen with application of VAC device in the subcutaneous tissue. - TFs via jejunostomy to be resumed when OK with surgery - off TPN 01/01. TPN resumed 01/08 @ 42cc/hr with lipids. - on full TF at goal - held 01/05 for bleeding gastric ulcer s/p Elap. Ordered J tube trophic feeds to be resumed 01/10(d/w surgery on 01/09). Increase J tube feeds to 20cc/hr Heme: Acute Anemia secondary to acute blood loss Thrombocytopenia Hypofibrinogenemia secondary to consumption and acute blood loss Coagulopathy secondary to consumption and acute blood loss --monitor CBC --Hep PLT ab negative on 12/03 --Platelets FFP fibrinogen as needed - Ferrous Sulfate TID - transfused 3 units PRBCs 01/05- ID Severe sepsis Necrotizing Fascitis - MSSA on wound culture 12/07. Ecoli bacteremia 12/01 MSSA bacteremia 12/05. Cleared on f/u blood culture 12/07, 12/12. Candidemia (blood culture 01/04 with Nava parapsilosis) Sepsis of Intra-abdominal origin. C. difficile toxic megacolon --Debridement 12/01 p.m at bedside by Dr Pedro and Dr. Hartmann --R hand, forearm and olecranon bursa I and D and Wound vac 12/07 Dr Chavez. -- IV cefepime,flagyl IV. Micafungin stopped per ID 01/08. Amphotericin B started by ID on 01/08 and stopped 01/09. Fluconazole started 01/09 per ID. On IV vanc per ID. Discussed with ID on 01/08. Nava and blood probably from an intra- abdominal source. Repeat blood cultures sent 01/08. --12/17 blood cultures: NGTD 12/17 central line culture: NGTD 12/17 urine cultures: NGTD 12/17 sputum cultures: NGTD C. difficile toxin 12/17: Negative (3rd negative toxin screen) -01/04 Blood culture with nava parapsilosis 01/04: horn culture, bronch with BAL, 01/04: CT chest/abd/pelvis without contrast: LLL consolidation, otherwise unchanged. 01/04: clinically LLL VAP. --ID Dr. Becerra Endocrine: Hyperglycemia of Critical Illness Diabetes - off Insulin drip - Moderate SSI - Levemir BID on hold. - Prednisone 10mg po daily. slow taper started however pt back on pressors after Elap on 01/06 so started hydrocortisone 50 mg IV every 8 hourly on 01/06, decreased to [id number] on 01/11 Prophylaxis: GI Prophylaxis: -- Protonix IV BID DVT Prophylaxis: - SCDs Resume subcutaneous heparin when okay with general surgery Lines: -- Sandoval -- right axillary arterial line 01/04 -- right IJ TLC 01/04 Critical Care: The total critical care time was 35 minutes. Time to perform other separately billable procedures was not included in the critical care time. Problem Qualifiers (1) Respiratory failure: Qualified Code: J96.00 - Acute respiratory failure, unspecified whether with hypoxia or hypercapnia (2) Altered mental status: Qualified Code: R41.0 - Delirium (3) Sepsis: Qualified Code: A41.9 - Sepsis, due to unspecified organism Christopher Clark MD Jan 12, 2016 11:50
[2016-01-12] MEDS: REMOVE OLD PATCH TD SCH (12:00)
[2016-01-12] MEDS: FLUCONAZOLE 400 MG PREMIX BAG 200 ML IV SCH (12:30)
[2016-01-12] MEDS: fentaNYL 75 MCG/HR PATCH TD SCH (12:33)
[2016-01-12] MEDS ORDERED: PHARMACY ORDERED LAB XX ONE (13:45)
--- NOTE | 2016-01-12 14:21 | HHI.PR ---
Subjective Subjective Notes no acute events Objective Vitals/I&O Vital Signs Date Time Temp Pulse Resp B/P Pulse Ox O2 Delivery O2 Flow Rate FiO2 01/12/16 13:33 17 01/12/16 12:57 96 Ventilator 40 01/12/16 12:00 98.1 119 148/105 Labs Laboratory Tests Test 01/12/16 01/12/16 01/12/16 04:50 10:15 10:19 Potassium Level 3.3 3.1 Creatinine 2.03 2.08 Estimat Glomerular Filtration 35 34 Rate Phosphorus Level 3.6 Magnesium Level 2.0 White Blood Count 25.8 Red Blood Count 3.34 Hemoglobin 9.5 Hematocrit 29.4 Mean Corpuscular Volume 88.0 Mean Corpuscular Hemoglobin 28.4 Mean Corpuscular Hemoglobin 32.3 Concent Red Cell Distribution Width 15.8 Platelet Count 194 Mean Platelet Volume 10.1 Neutrophils (%) (Auto) 93.0 Lymphocytes (%) (Auto) 2.0 Monocytes (%) (Auto) 4.8 Eosinophils (%) (Auto) 0.0 Basophils (%) (Auto) 0.2 Neutrophils # (Auto) 24.0 Lymphocytes # (Auto) 0.5 Monocytes # (Auto) 1.2 Eosinophils # (Auto) 0.0 Basophils # (Auto) 0.0 CBC Comment AUTO DIFF Differential Comment AUTO DIFF CONFIRMED Sodium Level 143 Chloride Level 111 Carbon Dioxide Level 21.4 Anion Gap 11 Blood Urea Nitrogen 68 Random Glucose 175 Calcium Level 7.7 Total Bilirubin 2.0 Aspartate Amino Transf 35 (AST/SGOT) Alanine Aminotransferase 48 (ALT/SGPT) Alkaline Phosphatase 223 Total Protein 4.6 Albumin 1.2 Date/Time Procedure Status Source Growth 01/10/16 00:00 Aerobic Blood Culture - Preliminary Resulted Blood Peripheral NO GROWTH IN 2 DAYS 01/10/16 00:00 Anaerobic Blood Culture - Preliminary Resulted Blood Peripheral NO GROWTH IN 2 DAYS Radiology Last Impressions Chest X-Ray 12/28/15 0000 Signed Impressions: Service Date/Time: Monday, December 28, 2015 14:23 - CONCLUSION: Large left pleural effusion and left lung base consolidation. Freddy Connor MD Abdomen/Pelvis CT 12/19/15 0000 Signed Impressions: Service Date/Time: Saturday, December 19, 2015 10:57 - CONCLUSION: 1. Adjacent volume pneumoperitoneum is observed consistent with perforation of a hollow viscus. This is presumably colonic in origin due to the diffuse inflammatory process involving the colon. I do not clearly identify the source of the pneumoperitoneum however. There is mild dilatation of the small bowel likely an ileus in nature. A significant volume of ascitic fluid is noted. 2. Bibasilar atelectasis and bilateral pleural effusions. 3. Small pericardial effusion. 4. Small bilateral nonobstructing renal calculi. 5. I spoke with Dr. Sanchez concerning the findings. Osmar Chavez Jr., MD Abdomen X-Ray 12/18/15 0000 Signed Impressions: Service Date/Time: Friday, December 18, 2015 16:05 - CONCLUSION: Feeding tube tip is at the gastric antrum. Arnaldo Elias MD Chest CT 12/14/15 0000 Signed Impressions: Service Date/Time: Monday, December 14, 2015 06:12 - CONCLUSION: 1. Cardiomegaly with bilateral consolidation, likely CHF. Pneumonia cannot be excluded. 2. Small right pleural effusion. Wojciech Lockhart MD Head CT 12/02/15 1013 Signed Impressions: Service Date/Time: Wednesday, December 02, 2015 11:00 - CONCLUSION: 1. No intracranial abnormality is seen. 2. Air-fluid level in the right maxillary sinus. Arnaldo Reyes MD Abdomen: Non-distended, Post-op tenderness Extremities: Perfused Narrative Exam VAC in place, wound clean, no signs of infection, no bleeding A/P Problem List: (1) Dependent on ventilator (2) Open wound of abdomen (3) Ileostomy in place (4) Jejunostomy tube present (5) S/P total colectomy (6) Acute colitis (7) Gastrostomy tube in place Assessment and Plan ostomy functioning well, abdomen soft, non-render Problem Qualifiers (1) Open wound of abdomen: Qualified Code: S31.109D - Open wound of abdomen, subsequent encounter Tej Hartmann MD Jan 12, 2016 14:21
[2016-01-12] MEDS: FAT EMULSION 20% INJ 250 ML (Daily over 8 hours) IV-CENTRAL SCH (21:00)
[2016-01-12] MEDS: CLINIMIX 4.25/25 (Cust.Renal Central) 1000 mL- </= 42 mls/hr IV-CENTRAL SCH ×8 (21:48)
[2016-01-12] MEDS: VASOPRESSIN INJ 40 UNITS in DEXTROSE 5% IN WATER 100ML INJ 98 ML IV SCH ×2 (23:33)
[2016-01-13] VITALS (15 sets, daily range): BP systolic 129–157; BP diastolic 87–105; PULSE 100–126; RESP 16–31; TEMP 98–98.7; O2SAT 94–98
[2016-01-13] MEDS: oxyCODONE HCL ORAL CONC 20 MG/ML SYRINGE PO SCH ×6 (01:43→20:10)
[2016-01-13] MEDS: CHLORHEXIDINE GLUCONATE 2 % 1 PACK (2 CLOTHS) TOP SCH (04:00)
[2016-01-13] MEDS: METOPROLOL TARTRATE 5 MG/5 ML VIAL IV PUSH SCH ×3 (04:45→20:10)
[2016-01-13] MEDS: CEFEPIME INJ 2,000 MG in SODIUM CHLORIDE 0.9% INJ 100 ML IV SCH (04:47)
[2016-01-13] MEDS: metroNIDAZOLE 500 MG INJ 100 ML IV SCH ×3 (04:47→20:09)
[2016-01-13] MEDS: ACETAMINOPHEN 650 MG/20.3 ML UDC PO SCH ×3 (04:48→17:05)
[2016-01-13 06:09] LABS: AUTOMATED NEUTROPHIL # 28.7 TH/MM3 (1.8-7.7); BASOPHIL % 0.1 % (0.0-2.0); EOSINOPHIL % 0.1 % (0.0-4.0); HEMATOCRIT 30.8 % (39.0-51.0); LYMPH % 2.1 % (9.0-44.0); LYMPHOCYTE # 0.7 TH/MM3 (1.0-4.8); MEAN CELL VOLUME 88.9 FL (80.0-100.0); MEAN CORPUSCULAR HEMOGLOBIN 29.6 PG (27.0-34.0); MEAN CORPUSCULAR HGB CONC 33.3 % (32.0-36.0); MONO % 5.7 % (0.0-8.0); PLATELET COUNT 206 TH/MM3 (150-450); RED BLOOD COUNT 3.47 MIL/MM3 (4.50-5.90); RED CELL DISTRIBUTION WIDTH 15.7 % (11.6-17.2); WHITE BLOOD COUNT 31.2 TH/MM3 (4.0-11.0)
[2016-01-13 06:13] LABS: HEMO FLAGS AUTO DIFF
[2016-01-13 07:25] LABS: BLOOD UREA NITROGEN 69 MG/DL (7-18); GLOMERULAR FILTRATION RATE 32 ML/MIN (>89)
[2016-01-13 07:26] LABS: ALKALINE PHOSPHATASE 224 U/L (45-117); ALT (GPT) 50 U/L (12-78); AST (GOT) 42 U/L (15-37); CHLORIDE 111 MEQ/L (98-107); SODIUM (NA) 143 MEQ/L (136-145); TOTAL BILIRUBIN ADULT 1.9 MG/DL (0.2-1.0)
[2016-01-13 07:27] LABS: ANION GAP 14 MEQ/L (5-15); BICARBONATE 18.5 MEQ/L (21.0-32.0)
[2016-01-13 07:30] LABS: POTASSIUM 2.9 MEQ/L (3.5-5.1)
[2016-01-13 07:36] LABS: BANDS 7 % (0-6); METAMYELOCYTES 1 % (0-1); NEUTROPHIL # MANUAL DIFF 27.1 TH/MM3 (1.8-7.7); PLATELET ESTIMATE SMEAR NORMAL (NORMAL); PLATELET MORPHOLOGY NORMAL (NORMAL); POLYS (SEG NEUTROPHILS) 79 % (16-70); SCAN/DIFF FINAL DIFF MANUAL; WBC DIFF SAMPLE 100
[2016-01-13] MEDS: CHLORHEXIDINE 0.12% (ORAL KIT) 15 ML CUP MT SCH ×2 (08:13→20:00)
[2016-01-13] MEDS: FUROSEMIDE 20 MG/2 ML VIAL IV PUSH SCH ×2 (08:14→17:11)
[2016-01-13] MEDS: PANTOPRAZOLE SODIUM 40 MG VIAL IV PUSH SCH ×2 (08:14→20:09)
[2016-01-13] MEDS: HYDROCORTISONE SOD SUCCINATE 100 MG VIAL IV PUSH SCH (08:15)
[2016-01-13] MEDS: NEOMYCIN/POLYMYXIN/BACITRACIN OINT 15 GM TUBE TOPICAL SCH ×2 (08:17→21:00)
[2016-01-13] MEDS: POVIDONE IODINE 10% OINT 30 GM TUBE TOPICAL SCH (08:17)
[2016-01-13] MEDS: POTASSIUM CHLOR 40 MEQ PREMIX 100 ML IV-CENTRAL SCH ×2 (08:30→11:30)
[2016-01-13] MEDS: INSULIN ASPART SUPPLEMENTAL SCALE SQ SCH ×4 (09:05→18:00)
--- NOTE | 2016-01-13 10:08 | HHI.PR ---
Subjective Subjective Notes no new c/o, dressings in tact, HH stable Objective Vitals/I&O Vital Signs Date Time Temp Pulse Resp B/P Pulse Ox O2 Delivery O2 Flow Rate FiO2 01/13/16 08:00 118 01/13/16 08:00 98.1 17 138/87 97 01/13/16 07:15 T-piece 28 Labs Laboratory Tests Test 01/12/16 01/12/16 01/13/16 10:15 10:19 04:40 White Blood Count 25.8 31.2 Red Blood Count 3.34 3.47 Hemoglobin 9.5 10.3 Hematocrit 29.4 30.8 Mean Corpuscular Volume 88.0 88.9 Mean Corpuscular Hemoglobin 28.4 29.6 Mean Corpuscular Hemoglobin 32.3 33.3 Concent Red Cell Distribution Width 15.8 15.7 Platelet Count 194 206 Mean Platelet Volume 10.1 9.9 Neutrophils (%) (Auto) 93.0 92.0 Lymphocytes (%) (Auto) 2.0 2.1 Monocytes (%) (Auto) 4.8 5.7 Eosinophils (%) (Auto) 0.0 0.1 Basophils (%) (Auto) 0.2 0.1 Neutrophils # (Auto) 24.0 28.7 Lymphocytes # (Auto) 0.5 0.7 Monocytes # (Auto) 1.2 1.8 Eosinophils # (Auto) 0.0 0.0 Basophils # (Auto) 0.0 0.0 CBC Comment AUTO DIFF AUTO DIFF Differential Comment AUTO DIFF FINAL DIFF CONFIRMED MANUAL Sodium Level 143 143 Potassium Level 3.1 2.9 Chloride Level 111 111 Carbon Dioxide Level 21.4 18.5 Anion Gap 11 14 Blood Urea Nitrogen 68 69 Creatinine 2.08 2.14 Estimat Glomerular Filtration 34 32 Rate Random Glucose 175 192 Calcium Level 7.7 7.7 Total Bilirubin 2.0 1.9 Aspartate Amino Transf 35 42 (AST/SGOT) Alanine Aminotransferase 48 50 (ALT/SGPT) Alkaline Phosphatase 223 224 Total Protein 4.6 4.7 Albumin 1.2 1.2 Differential Total Cells 100 Counted Neutrophils % (Manual) 79 Band Neutrophils % 7 Lymphocytes % 7 Monocytes % 6 Neutrophils # (Manual) 27.1 Metamyelocytes 1 Platelet Estimate NORMAL Platelet Morphology Comment NORMAL Red Cell Morphology Comment NORMAL Phosphorus Level 2.7 Magnesium Level 2.0 Random Vancomycin Level 31.0 Date/Time Procedure Status Source Growth 01/10/16 00:00 Aerobic Blood Culture - Preliminary Resulted Blood Peripheral NO GROWTH IN 2 DAYS 01/10/16 00:00 Anaerobic Blood Culture - Preliminary Resulted Blood Peripheral NO GROWTH IN 2 DAYS Radiology Last Impressions Chest X-Ray 12/28/15 0000 Signed Impressions: Service Date/Time: Monday, December 28, 2015 14:23 - CONCLUSION: Large left pleural effusion and left lung base consolidation. Freddy Connor MD Abdomen/Pelvis CT 12/19/15 0000 Signed Impressions: Service Date/Time: Saturday, December 19, 2015 10:57 - CONCLUSION: 1. Adjacent volume pneumoperitoneum is observed consistent with perforation of a hollow viscus. This is presumably colonic in origin due to the diffuse inflammatory process involving the colon. I do not clearly identify the source of the pneumoperitoneum however. There is mild dilatation of the small bowel likely an ileus in nature. A significant volume of ascitic fluid is noted. 2. Bibasilar atelectasis and bilateral pleural effusions. 3. Small pericardial effusion. 4. Small bilateral nonobstructing renal calculi. 5. I spoke with Dr. Sanchez concerning the findings. Osmar Chavez Jr., MD Abdomen X-Ray 12/18/15 0000 Signed Impressions: Service Date/Time: Friday, December 18, 2015 16:05 - CONCLUSION: Feeding tube tip is at the gastric antrum. Arnaldo Elias MD Chest CT 12/14/15 0000 Signed Impressions: Service Date/Time: Monday, December 14, 2015 06:12 - CONCLUSION: 1. Cardiomegaly with bilateral consolidation, likely CHF. Pneumonia cannot be excluded. 2. Small right pleural effusion. Wojciech Lockhart MD Head CT 12/02/15 1013 Signed Impressions: Service Date/Time: Wednesday, December 02, 2015 11:00 - CONCLUSION: 1. No intracranial abnormality is seen. 2. Air-fluid level in the right maxillary sinus. Arnaldo Reyes MD Abdomen: Non-distended, Post-op tenderness Narrative Exam VAC in place, wound clean, no signs of infection, no bleeding A/P Problem List: (1) Dependent on ventilator (2) Open wound of abdomen (3) Ileostomy in place (4) Jejunostomy tube present (5) S/P total colectomy (6) Acute colitis (7) Gastrostomy tube in place Assessment and Plan 55yo male s/p multiple abdominal surgeries ostomy functioning well, abdomen soft, non-render continue dressing changes, care per primary team overall poor prognosis Problem Qualifiers (1) Open wound of abdomen: Qualified Code: S31.109D - Open wound of abdomen, subsequent encounter Tej Hartmann MD Jan 13, 2016 10:08
[2016-01-13] MEDS: FLUCONAZOLE 400 MG PREMIX BAG 200 ML IV SCH (11:29)
--- NOTE | 2016-01-13 14:36 | HHI.CCPN ---
Subjective Remarks/Hospital Course 55-year-old male brought by EMS with altered mental status. He has been confused for 2 days but this morning has been the worst. He has history of chronic opiate medications including methadone and morphine that he takes for pain management and hence they gave him Narcan IV which brought the GCS up to 13. The blood glucose was 74. He has open wounds from his right upper and bilateral lower extremities. He has history of hepatitis C. Last week he was pealing and eating shrimps. Bedside blood sugar was 76 in the ER. He was tachycardic in 1 teens and was intubated in the ED for airway protection. Admitted to ICU with sepsis due to Staph Aureus hand infection and E. Coli bacteriemia. 12/05 Patient remains sedated with Fentanyl and intubated. On Levophed 3 mics, Vasopressin 0.03 mics and Bicarb drip. T:99.8 TF placed on hold OGT to LIWS last night - gastric drainage 525ml overnight. 12/06 Patient is sedated with Fentanyl and intubated, On Levophed 3 mics, off vasopressin. Gastric output 400ml in 24 hrs. KUB abdomen yesterday mildly distended colon otherwise non specific KUB. 12/07 Patient is off sedation remains intubated tolerated CPAP for most day yesterday. Afebrile. on no drips, tolerating tube feeds. 12/08 Patient went to OR yesterday for debridement and irrigation of right forearm and wound VAC placement. Given 2U PRBC and 2u PLT yesterday and currently receiving 1of 2 u additional PRBC. Hgb 7.7, PLT 43 this morning. Patient also started on pressors now on Levophed 10 mics. Vasopressin 0.04 mics. On no sedation. 12/09 Patient remains intubated off pressors, Afebrile. Tolerating tube feeds. Afebrile. 12/10 Patient is sedated with Fentanyl and intubated. Awake and follows commands off sedation. Afebrile. 12/11 Patient had ?SVT overnight given Lopressor 2.5mg IV x1, Remains intubated and sedated with Fentanyl. Afebrile. Tolerating TF. 12/12 Patient spoked fever last night with T: 101.5, sedated with Fentanyl and intubated. 12/13 Patient had an episode of desaturation overnight required increase FIO2/ PEE now on ACV with RR 14, TV 550, PEEP: 12, FIO2 60% with sats 100% CT chest performed overnight showed b/l consolidation and small pleural effusion. Had T: 100.0 last night. 12/14 Tolerating PS 15/CPAP 10 FiO2 40% with rSBI 38, weaning. . Awake and alert , following commands. Hypotensive overnight and levophed restarted up to 12 mcg/ min. Nurse has been weaning throughout the day. Suspected adrenal insufficiency as he was on prednisone as outpatient for gout and has not been on stress dose steroids. Given decadron. 12/15 Transfused 1 unit PRBC for Hgb 7.0 yesterday, 1 unit PRBC for Hgb 6.6 today and now Hgb 8.3. Does not clinically have e/o active GI bleeding and wound vac output nonbloody. Stool 1500 output, C diff negative. No abdominal pain. Remains Awake and alert, remained on CPAP 10/5 last night and is now tolerating CPAP 5/5. 12/16: Extubated yesterday tolerating well. Breathing comfortably. Able to follow commands. UO 1.8 L in 24 hours. Na slightly increased to 153. 12/17: Significantly worse this AM. WBC up to 28 from 16. Hgb 5.2 from 7.9. tachycardic. pale this AM. states he feels tired. Continues on BiPAP. Plan for debridement of his arms today. LIJ CVL does not have any signs of overt infection. 12/18: Blood cell count continues to rise today to 30 from 28. Required 1 unit of blood for hemoglobin of 6.6 which improved to 7.7 this morning. However, patient remains tachycardic in the 120s and significantly pale. CT abdomen and pelvis ordered and pending. Tachypneic with respiratory rate in the 30s. Only small amount of dark tarry stool yesterday with approximately 300 cc of stool output. C. difficile toxin negative 3. After discussion with infectious disease, restart vancomycin, cefepime, Flagyl, micafungin. Horn cultures are pending. Per discussion with GI, will not scope as endoscopy is high risk given his tenuous respiratory status this point. Slightly worse hypernatremia as well as worsening acute kidney injury this morning. 12/19: POD 1 s/p ex-lap, washout for perforated ascending colon with extended right hemicolectomy, primary ileocolic anastamosis, open abdomen, septic shock, acute hypoxic and hypercarbic respiratory failure. Significantly critically ill overnight: required 6L ivf resuscitation, 1 unit prbc, norepinephrine, vasopressin, stress dose hydrocortisone. This morning, remains on high-dose vasopressors. still has large volume ivf requirement. Significant SIRS response. Vent requirements increasing with all this volume resuscitation, PEEP up to 10. He remains critically ill, and although I do believe we have surgical source control, I anticipate he will continue to clinically decline before he starts to make improvements. 12/20: Off pressors. follows commands on sedation holiday. +11L over last 3 days during acute illness, +22L since admission. We are going to have to get some of this volume back before we are able to close him given his severe anasarca. 12/21: Taken back to the OR yesterday afternoon for washout and completion colectomy. Postoperatively was significantly under resuscitated as well as had ongoing active oozing. Patient was coagulopathy. The patient was in distributive and hemorrhagic shock. The patient was given multiple units of blood products overnight. Patient was thrombocytopenic, hypofibrinogenemic, coagulopathic. Given significant volume of blood product resuscitation: 24h blood products: 13 prbc 8 ffp 2 plt 1 10-pack cryo This morning continues to have significant amount of bright red output out of his BEV and wound VAC, approximately 500 cc an hour out of his wound VAC, and approximately 75 an mils every 10 minutes out of a BEV. I discussed with surgery and we will correct his coagulopathy and plan to go back to the OR for exploration early this afternoon. 12/22: Clinically starting to improve hemodynamically. off vasopressors. Net+ 26L. CVP rising to 14. UOP adequate. Hgb 7 this AM. 12/23 Seen postop. Hypertensive, BP improved with additional pain medicine. Remains net positive but urine output excellent 3L in 24 hours. Remains on Lasix gtt. went to OR today status post wound VAC change and partial closure 12/24: Fascia was closed yesterday. Wound Vac in place. Remains sedated. -2L negative balance, but with increasing BUN/creat. Discontinue Bumex infusion, start scheduled Bumex 2 mg IV every 12 with IV albumin. 12/25: Overnight became hypotensive requiring Levophed to be restarted. Hemoglobin dropped to 4.1. Noted to have bloody drainage from G-tube and dorsal ileostomy with black stool output 12/26: s/p EGD yesterday-2 gastric ulcers bleeding, stomach a significant part had decreased discoloration indicating probable ischemia. s/p epi injection and cauterization. Continues to have coffee ground G tube output, black tarry Ileostomy output. Hemoglobin down to 6.4 getting 2 units of PRBC. GI recent recommending intervention radiology consult. 12/27: For trach today. Meds ordered. Hgb decline consistent with recent transfusions and senescent cells. 12/28: Trach clean, dry. Start SBTs. Check prealbumin. Continue TPN. 12/29: Looks in direction of voice. I have not seen more purposeful reactions. Line > 12 days old, replace today. Prealbumin 20 - good response to TPN. 12/30: Remains vented, encephalopathic, puss like drainage from left hand, WBC increased 01/01: no significant changes. continues to remain critically ill with minimal improvements over the last week. abdomen closed. still total body volume overloaded. 01/02: more awake today than yesterday. continues to be critically ill with minimal improvements overall. need to look towards placement. -900 yesterday. 01/03: up in chair yesterday. tolerated short run of SBT 15/5/40%. net euvolemic. wbc downtrending. 01/04: wbc slightly uptrended 33 from 30, more acidotic on BMP (14 from 20). Also spiking fevers to 102.3 despite tylenol. continues on broad spectrum abx. yesterday's cxr had what may be a new LLL infiltrate. today, though, he is following commands and more awake and alert. 01/05: LLL pna clinically and based on bronch. CT c/a/p done last night without any significant intra-abdominal change. small left pleural effusion which appears simple in nature, and LLL consolidation. ID broadened abx. today , wbc downtrending. culture data pending. Hgb 7 this AM. 01/06: Underwent exploratory laparotomy last night with findings of bleeding gastric ulcer which was oversewn by Dr. Verdin abdomen left open with wound VAC in place. Received 3 units PRBCs overnight. Remains on Wesley-Synephrine drip this morning for hypotension. Remains sedated, on mechanical ventilation. 01/07: Remains sedated, on mechanical ventilation. For abdominal incision site closure today. Significant positive fluid balance over the last 2 days. Off pressors currently. Lasix to mobilize fluid. 01/08: Remains sedated, on mechanical ventilation via tracheostomy. Underwent abdominal incision site closure this morning. Remains off pressors. Anasarca noted. Blood cultures from 01/04 growing Nava parapsilosis. 01/09: Drowsy/sedated, arousable, on mechanical ventilation via tracheostomy. TPN started yesterday. To be started on J-tube feeds per discussion with surgery 01/10: Sedated, arousable, on mechanical ventilation via tracheostomy. Remains on TPN. J-tube feeds being started today. 01/11: Was on T piece yesterday and rested on C Pap overnight. On TPN. Advanced J-tube feeds to 20 cc an hour today. Attempt T piece as tolerated. 01/12: Awake, tracks with his eyes. On C Pap overnight. Tolerated T piece during daytime yesterday. Objective Vital Signs Date Time Temp Pulse Resp B/P Pulse Ox O2 Delivery O2 Flow Rate FiO2 01/13/16 12:00 98.0 123 31 157/93 98 01/13/16 07:15 T-piece 28 Intake and Output 01/12/16 01/12/16 01/13/16 08:00 16:00 00:00 Intake Total 1138 ml 970 ml 645 ml Output Total 1000 ml 1200 ml 590 ml Balance 138 ml -230 ml 55 ml Result Diagram: 01/13/16 0440 01/13/16 0440 Imaging Last 48 hours Impressions Chest X-Ray 01/07/16 0000 Signed Impressions: Service Date/Time: Thursday, January 07, 2016 04:23 - CONCLUSION: Worsening consolidation or atelectasis at the left mid and lower lung. Some degree of left effusion may also be contributing to this. Arnaldo Reyes MD Chest X-Ray 01/06/16 0000 Signed Impressions: Service Date/Time: Wednesday, January 06, 2016 19:46 - CONCLUSION: 1. Basilar airspace disease improved from January 04. Tracheostomy and right central line in satisfactory position. Nomi Falcon MD Abdomen/Pelvis CT 01/06/16 0000 Signed Impressions: Service Date/Time: Wednesday, January 06, 2016 22:07 - CONCLUSION: 1. Over the last day there is development of a large mass in the left upper quadrant measuring up to 18 x 13 cm which appears to be associated with the stomach. The mass is characterized by somewhat concentric areas of decreased and increased attenuation with multiple locules of air. Primary differential diagnosis is hemorrhage into the gastric wall with gastric pneumatosis and possibly gastric ischemia. Gastrostomy is again noted anteriorly. 2. Remainder the exam is relatively stable with drainage tube left upper quadrant, splenectomy, bilateral effusions, feeding jejunostomy and drain within the pelvis. There is also diffuse anasarca and nonobstructing renal calculi. Nomi Falcon MD Last Impressions Chest X-Ray 12/17/15 0600 Signed Impressions: Service Date/Time: Thursday, December 17, 2015 03:25 - CONCLUSION: Persistent left lower lobe consolidation. Osmar Alegria MD Chest CT 12/14/15 0000 Signed Impressions: Service Date/Time: Monday, December 14, 2015 06:12 - CONCLUSION: 1. Cardiomegaly with bilateral consolidation, likely CHF. Pneumonia cannot be excluded. 2. Small right pleural effusion. Wojciech Lockhart MD Abdomen X-Ray 12/06/15 0000 Signed Impressions: Service Date/Time: November 09:53 - CONCLUSION: Nonspecific KUB. Air is seen within a mildly distended colon but contrast is clearly seen in the rectum. Arnaldo Reyes MD Abdomen/Pelvis CT 12/04/15 0000 Signed Impressions: Service Date/Time: Friday, December 04, 2015 16:24 - CONCLUSION: 1. Mildly distended small bowel in the mid and lower abdomen. Contrast is clearly seen extending into the distal small bowel and ascending colon so a complete obstruction is not seen. A transition point is not seen. This pattern likely represents an ileus versus a partial obstruction. 2. Multiple nonobstructing renal stones. 3. Abnormal appearance of the spleen which appears to represent a splenule. It could be correlated if the patient has had either primary splenic removal or splenic injury and this is what is either left of the spleen or a developing splenule. This is likely of no significance. 4. Mild ascites. 5. Increased density within the gallbladder representing either tumefactive sludge or noncalcified stones. 6. Mild bilateral pleural effusions with prominent areas of lower lobe atelectasis or consolidation at the bases bilaterally. 7. Subacute to chronic bilateral rib fractures and multiple compression fractures in the lower thoracic and lumbar spine as described above. The patient does have a prior CT examination from 08/26/2014. All the compression deformities described above are new when compared to that scan. Arnaldo Reyes MD Head CT 12/02/15 1013 Signed Impressions: Service Date/Time: Wednesday, December 02, 2015 11:00 - CONCLUSION: 1. No intracranial abnormality is seen. 2. Air-fluid level in the right maxillary sinus. Arnaldo Reyes MD Objective Remarks GENERAL: Middle-aged male, lying in bed, trached. HEENT: NCAT. mucous membranes moist. NECK: trach in place. obese neck. difficult to assess JVD. right IJ triple lumen catheter in place, site clean RESPIRATORY: C Pap/T piece as tolerated Breath sounds equal bilaterally. coarse crackles b/l. CARDIOVASCULAR: Tachycardic, regular rhythm without murmurs, rubs. GASTROINTESTINAL: Reena dressing over midline incision site. BEV drains in place , J tube in place, nondistended. BS not appreciated. MUSCULOSKELETAL: Generalized anasarca. Multiple open wounds in the lower extremity. RUE - with wound vac in place. L upper extremity dressing in place. NEURO: Awake, opens eyes spontaneously. Follows commands. 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 - liquid tylenol 650mg per tube q6h. - Dilaudid 2mg iv q4h prn for breakthrough pain. - oxycodone 20mg per tube q4h scheduled. Respiratory Acute respiratory failure-extubated 12/16/15, reintubated for surgery 12/18 Acute hypoxic and hypercarbic respiratory failure Acute healthcare associated pneumonia- resolved NIGEL on home CPAP - Tracheostomy 12/27 - Vent bundle. Head of bed at 30 degrees. Nebs q6h and q2h prn. - on C Pap/pressure support since 01/09, T piece trials since 01/10. Tolerates T piece all day and rested on C Pap at night. We will attempt T piece as tolerated. CV Hemorrhagic shock- resolved Septic Shock- resolved Volume overload - keep map > 65 mmHg. - Cortisol level 14 on 12/14 - Prednisone held. Decreased hydrocortisone to 50mg [id number] on 01/10. We'll stop hydrocortisone and switch to prednisone 10 mg daily starting 01/13 - Echo 12/07 EF 65-70%, grade I diastolic dysfunction Increased lasix to 40mg IV Q8hrly on 01/11. Renal: DEIRDRE Hypernatremia - stopped bicarbonate drip 01/07, strict intake output, monitor and replete electrolites, follow BUN/creatinine. - On diuretics to mobilize fluid. - Removed NaCl from TPN in v/o hypernatremia FEN/GI Acute GIB, hemorrhagic shock Perforated right colon with colitis s/p ex-lap, extended right hemicolectomy with primary ileocolic anastamosis, washout, open abdomen (12/18) s/p Elap 01/05 for bleeding gastric ulcer Acute protein calorie malnutrition- severe Hypokalemia Total body volume overload Intravascular hypervolemia - Protonix BID - EGD 12/26/15 showed 2 large gastric ulcers with active bleeding status post epinephrine infusion and cauterization - ICU electrolyte protocol - Daily CMP - OR on 12/24 with Removal of VAC, washout, pancreatic drain and pelvic drain placement, gastrostomy, feeding jejunostomy and closure of abdomen with application of VAC device in the subcutaneous tissue. - TFs via jejunostomy to be resumed when OK with surgery - off TPN 01/01. TPN resumed 01/08 @ 42cc/hr with lipids. - on full TF at goal - held 01/05 for bleeding gastric ulcer s/p Elap. Ordered J tube trophic feeds to be resumed 01/10(d/w surgery on 01/09). Tolerating J tube feeds at 20cc/hr, advance if OK with Gen Surgery Heme: Acute Anemia secondary to acute blood loss Thrombocytopenia Hypofibrinogenemia secondary to consumption and acute blood loss Coagulopathy secondary to consumption and acute blood loss --monitor CBC --Hep PLT ab negative on 12/03 - Ferrous Sulfate TID - transfused 3 units PRBCs 01/05- ID Severe sepsis Necrotizing Fascitis - MSSA on wound culture 12/07. Ecoli bacteremia 12/01 MSSA bacteremia 12/05. Cleared on f/u blood culture 12/07, 12/12. Candidemia (blood culture 01/04 with Nava parapsilosis) Sepsis of Intra-abdominal origin. C. difficile toxic megacolon --Debridement 12/01 p.m at bedside by Dr Pedro and Dr. Hartmann --R hand, forearm and olecranon bursa I and D and Wound vac 12/07 Dr Chavez. -- IV cefepime,flagyl IV. Micafungin stopped per ID 01/08. Amphotericin B started by ID on 01/08 and stopped 01/09. Fluconazole started 01/09 per ID. On IV vanc per ID. Discussed with ID on 01/08. Nava and blood probably from an intra- abdominal source. White count up to 30,000, will repeat UA and urine culture if indicated as well as sputum Gram stain and cultures and inform ID --12/17 blood cultures: NGTD 12/17 central line culture: NGTD 12/17 urine cultures: NGTD 12/17 sputum cultures: NGTD C. difficile toxin 12/17: Negative (3rd negative toxin screen) -01/04 Blood culture with nava parapsilosis 01/04: horn culture, bronch with BAL, 01/04: CT chest/abd/pelvis without contrast: LLL consolidation, otherwise unchanged. 01/04: clinically LLL VAP. 01/08 Blood cultures: no growth so far --ID Dr. Becerra Endocrine: Hyperglycemia of Critical Illness Diabetes - off Insulin drip - Moderate SSI - Levemir BID on hold. - Prednisone 10mg po daily. slow taper started however pt back on pressors after Elap on 01/06 so started hydrocortisone 50 mg IV every 8 hourly on 01/06, decreased to [id number] on 01/11 Prophylaxis: GI Prophylaxis: -- Protonix IV BID DVT Prophylaxis: - SCDs Resume subcutaneous heparin when okay with general surgery Lines: -- Sandoval -- right IJ TLC 01/04 Critical Care: The total critical care time was 35 minutes. Time to perform other separately billable procedures was not included in the critical care time. Problem Qualifiers (1) Respiratory failure: Qualified Code: J96.00 - Acute respiratory failure, unspecified whether with hypoxia or hypercapnia (2) Altered mental status: Qualified Code: R41.0 - Delirium (3) Sepsis: Qualified Code: A41.9 - Sepsis, due to unspecified organism Christopher Clark MD Jan 13, 2016 14:36
[2016-01-13 16:12] LABS: BACTERIA, URINE RARE /hpf; BLOOD, URINE SMALL (NEG); GLUCOSE,URINE TRACE mg/dL (NEG); KETONE, URINE NEG (NEG); MUCUS URINE FEW /lpf (OCC); NITRITE,URINE NEG (NEG); PH, URINE 5.5 (5.0-8.5); SQUAMOUS EPITHELIAL CELL URINE 1 /hpf (0-5); URINE COLOR YELLOW (YELLW/STRAW)
[2016-01-13 16:13] LABS: COMMENT (UR) CATH-CULTURE IND; CULTURE IF INDICATED CATH CULTURE IND
--- NOTE | 2016-01-13 16:18 | HHI.IDPN ---
Note Infectious Disease Note ID COVERAGE. Called about patient's rising WBC. Patient in no distress. Alert and awake. Now on T piece On TPN, but started on trickle feeds RN reports a lot of drainage at abdominal incision. Afebrile He grew out C. parapsilosis and AMB was changed to fluconazole Antibiotics cefepime IV, IV Flagyl Fluconazole Lines RSC TLC Past Medical History RA HCV sp splenectomy Allergies: Coded Allergies: Compazine (Verified Allergy, Severe, VOMITING, RASH, 08/26/14) SLURRED SPEECH, MIGRAINES Demerol (Verified Allergy, Severe, VOMITING, 08/26/14) Levaquin (Verified Allergy, Severe, 08/26/14) Penicillin (Verified Allergy, Severe, Rash, 08/26/14) Phenergan (Verified Allergy, Severe, VOMITING, 08/26/14) Uncoded Allergies: ANTI-CONVULSIVES (Allergy, Severe, MIGRAINES, SLURRED SPEECH,, 01/23/14) Objective . Vital Signs Date Time Temp Pulse Resp B/P Pulse Ox O2 Delivery O2 Flow Rate FiO2 01/13/16 12:00 98.0 123 31 157/93 98 01/13/16 10:00 123 01/13/16 09:18 19 01/13/16 08:00 118 01/13/16 08:00 98.1 118 17 138/87 97 01/13/16 07:15 98 T-piece 28 01/13/16 06:00 112 01/13/16 04:00 35 01/13/16 04:00 126 01/13/16 04:00 98.7 126 24 154/105 97 01/13/16 04:00 97 35 01/13/16 02:00 120 01/13/16 01:00 98 35 01/13/16 00:00 35 01/13/16 00:00 115 01/13/16 00:00 98.4 115 19 129/91 98 01/12/16 22:00 108 01/12/16 20:00 98.8 128 23 145/102 96 01/12/16 20:00 128 01/12/16 20:00 35 01/12/16 19:44 96 35 01/12/16 18:00 117 01/12/16 01/12/16 01/13/16 15:00 23:00 07:00 Intake Total 970 ml 645 ml 1084 ml Output Total 1200 ml 590 ml 1282 ml Balance -230 ml 55 ml -198 ml IV Total 426 ml 179 ml 265 ml Tube Feeding 112 ml 122 ml 153 ml TPN/PPN 312 ml 284 ml 360 ml Lipid 246 ml Tube Irrigant 120 ml 60 ml 60 ml Output Urine Total 350 ml 275 ml 450 ml Stool Total 150 ml 120 ml 50 ml Gastric Drainage Total 275 ml 100 ml 200 ml Drainage Total 425 ml 95 ml 582 ml Laboratory Tests Test 01/12/16 01/13/16 10:15 04:40 White Blood Count 25.8 TH/MM3 31.2 TH/MM3 Red Blood Count 3.34 MIL/MM3 3.47 MIL/MM3 Hemoglobin 9.5 GM/DL 10.3 GM/DL Hematocrit 29.4 % 30.8 % Mean Corpuscular Volume 88.0 FL 88.9 FL Mean Corpuscular Hemoglobin 28.4 PG 29.6 PG Mean Corpuscular Hemoglobin 32.3 % 33.3 % Concent Red Cell Distribution Width 15.8 % 15.7 % Platelet Count 194 TH/MM3 206 TH/MM3 Mean Platelet Volume 10.1 FL 9.9 FL Neutrophils (%) (Auto) 93.0 % 92.0 % Lymphocytes (%) (Auto) 2.0 % 2.1 % Monocytes (%) (Auto) 4.8 % 5.7 % Eosinophils (%) (Auto) 0.0 % 0.1 % Basophils (%) (Auto) 0.2 % 0.1 % Neutrophils # (Auto) 24.0 TH/MM3 28.7 TH/MM3 Lymphocytes # (Auto) 0.5 TH/MM3 0.7 TH/MM3 Monocytes # (Auto) 1.2 TH/MM3 1.8 TH/MM3 Eosinophils # (Auto) 0.0 TH/MM3 0.0 TH/MM3 Basophils # (Auto) 0.0 TH/MM3 0.0 TH/MM3 CBC Comment AUTO DIFF AUTO DIFF Differential Comment AUTO DIFF FINAL DIFF CONFIRMED MANUAL Differential Total Cells 100 Counted Neutrophils % (Manual) 79 % Band Neutrophils % 7 % Lymphocytes % 7 % Monocytes % 6 % Neutrophils # (Manual) 27.1 TH/MM3 Metamyelocytes 1 % Platelet Estimate NORMAL Platelet Morphology Comment NORMAL Red Cell Morphology Comment NORMAL Laboratory Tests Test 11/26/16 11/26/16 11/27/16 11/27/16 04:50 10:19 04:40 14:20 Potassium Level 3.3 MEQ/L 3.1 MEQ/L 2.9 MEQ/L 4.3 MEQ/L Creatinine 2.03 MG/DL 2.08 MG/DL 2.14 MG/DL Estimat Glomerular Filtration 35 ML/MIN 34 ML/MIN 32 ML/MIN Rate Phosphorus Level 3.6 MG/DL 2.7 MG/DL Magnesium Level 2.0 MG/DL 2.0 MG/DL Sodium Level 143 MEQ/L 143 MEQ/L Chloride Level 111 MEQ/L 111 MEQ/L Carbon Dioxide Level 21.4 MEQ/L 18.5 MEQ/L Anion Gap 11 MEQ/L 14 MEQ/L Blood Urea Nitrogen 68 MG/DL 69 MG/DL Random Glucose 175 MG/DL 192 MG/DL Calcium Level 7.7 MG/DL 7.7 MG/DL Total Bilirubin 2.0 MG/DL 1.9 MG/DL Aspartate Amino Transf 35 U/L 42 U/L (AST/SGOT) Alanine Aminotransferase 48 U/L 50 U/L (ALT/SGPT) Alkaline Phosphatase 223 U/L 224 U/L Total Protein 4.6 GM/DL 4.7 GM/DL Albumin 1.2 GM/DL 1.2 GM/DL Microbiology Date/Time Procedure Status Source Growth 01/13/16 14:40 Gram Stain Received Sputum Endotracheal Pending 01/13/16 14:40 Sputum Culture Received Sputum Endotracheal Pending Imaging Chest X-Ray 01/12/16 0000 Signed Impressions: Service Date/Time: Tuesday, January 12, 2016 06:56 - CONCLUSION: No significant interval change. Persistent left lower lobe consolidation versus atelectasis and left pleural effusion as well as patchy right lung base opacity Aakash Frederick MD Chest X-Ray 01/07/16 0000 Signed Impressions: Service Date/Time: Thursday, January 07, 2016 04:23 - CONCLUSION: Worsening consolidation or atelectasis at the left mid and lower lung. Some degree of left effusion may also be contributing to this. Arnaldo Reyes MD Abdomen/Pelvis CT 01/06/16 0000 Signed Impressions: Service Date/Time: Wednesday, January 06, 2016 22:07 - CONCLUSION: 1. Over the last day there is development of a large mass in the left upper quadrant measuring up to 18 x 13 cm which appears to be associated with the stomach. The mass is characterized by somewhat concentric areas of decreased and increased attenuation with multiple locules of air. Primary differential diagnosis is hemorrhage into the gastric wall with gastric pneumatosis and possibly gastric ischemia. Gastrostomy is again noted anteriorly. 2. Remainder the exam is relatively stable with drainage tube left upper quadrant, splenectomy, bilateral effusions, feeding jejunostomy and drain within the pelvis. There is also diffuse anasarca and nonobstructing renal calculi. Nomi Falcon MD Chest CT 01/05/16 0000 Signed Impressions: Service Date/Time: Tuesday, January 05, 2016 23:15 - CONCLUSION: 1. Persistent left lower lobar consolidation. Improved consolidative infiltrates in the right lower lung. 2. Interval increase size bilateral pleural effusions , left greater than right. Osmar Alegria MD Celiac/Hepatic Arteriogram 12/27/15 0000 Signed Impressions: Service Date/Time: December 13:41 - CONCLUSION: 1. No active GI bleed identified. Robert Mckinney MD Abdomen X-Ray 12/18/15 0000 Signed Impressions: Service Date/Time: Friday, December 18, 2015 16:05 - CONCLUSION: Feeding tube tip is at the gastric antrum. Arnaldo Elias MD Head CT 12/02/15 1013 Signed Impressions: Service Date/Time: Wednesday, December 02, 2015 11:00 - CONCLUSION: 1. No intracranial abnormality is seen. 2. Air-fluid level in the right maxillary sinus. Arnaldo Reyes MD Physical Exam GENERAL: On T- piece. SKIN: minimal jaundice. Anasarca HEENT: mild icterus, no nasal discharge. Moist oral mucosa. NECK: Trach in place CARDIOVASCULAR: systolic murmur in base of heart RESPIRATORY/CHEST: Slight basilar rhonchi. GASTROINTESTINAL: dressing in place JPs in place with serous drainage Stoma with brown stool Incision with dressing in place- brown d/c noted on inferior aspect GENITOURINARY: Sandoval catheter in place with clear light yellow urine with sediment MUSCULOSKELETAL: Extremities no cyanosis, edema 2+ pitting with poorly healing wounds RUE with VAC in place, serosang dc NEUROLOGICAL: sedated LINES: NO evidence of infection Assessment & Plan Remarks Sepsis related to Cdiff and Intra abdominal peritonitis. - sp subtotal colectomy and ileostomy SP colon perfocation and intraperitoneal gross contamination ? Cdiff Colitis Noted Cdiff PCR is negative3/3 ? Zinc preparation in perianal care could cause false negative test. Path c/o Cdiff Colitis. - repeat path favouring ischemia RUE severe nec fasc due to MSSA - skin grafting was planned, but cancelled - S/P I and D x 3 - clinically resolved MSSA bacteremia 2/2 RUE infx - resolved E.coli bacteremia on presentation -source is likely gut Immunosuppressed on steroids, s/p splenectomy. PCN allergy, but no probs with Keflex per report. ARF/ DEIRDRE/ATN 2/2 sepsis -stable Recurretn life threatening upper GI bleeding 2/2 bleeding ulcers Persistent leukocytosis - liekly reactive leukocytosis 2/2 massive gstic bleeding C. parapsilosa fungemia ? sourece intraabd vs (less likely) line PLAN: Continue IV cefepime,flagyl IV, cont Fluconazole Follow urine culture, sputum culture. Follow WBC. Dr Becerra to follow patient tomorrow, Gustavo Ro MD Jan 13, 2016 16:18
[2016-01-13] MEDS: FAT EMULSION 20% INJ 250 ML (Daily over 8 hours) IV-CENTRAL SCH (20:08)
[2016-01-13] MEDS: CLINIMIX 4.25/25 (Cust.Renal Central) 1000 mL- </= 42 mls/hr IV-CENTRAL SCH ×8 (20:08)
[2016-01-13] MEDS: RESP: ALBUTEROL 2.5 MG/IPRATROPIUM 0.5 MG NEB (PRN) NEB (20:44)
[2016-01-13] MEDS: VASOPRESSIN INJ 40 UNITS in DEXTROSE 5% IN WATER 100ML INJ 98 ML IV SCH ×2 (23:33)
[2016-01-14] VITALS (21 sets, daily range): BP systolic 107–138; BP diastolic 71–88; PULSE 91–122; RESP 14–30; TEMP 98.1–99; O2SAT 96–100
[2016-01-14] MEDS: ACETAMINOPHEN 650 MG/20.3 ML UDC PO SCH ×5 (00:32→23:15)
[2016-01-14] MEDS: oxyCODONE HCL ORAL CONC 20 MG/ML SYRINGE PO SCH ×6 (00:32→21:05)
[2016-01-14] MEDS: RESP: ALBUTEROL 2.5 MG/IPRATROPIUM 0.5 MG NEB (PRN) NEB (01:20)
[2016-01-14] MEDS: metroNIDAZOLE 500 MG INJ 100 ML IV SCH ×3 (03:01→21:05)
[2016-01-14] MEDS: CHLORHEXIDINE GLUCONATE 2 % 1 PACK (2 CLOTHS) TOP SCH (03:02)
[2016-01-14] MEDS: METOPROLOL TARTRATE 5 MG/5 ML VIAL IV PUSH SCH ×3 (04:30→21:05)
[2016-01-14] MEDS: HYDROmorphone HCL PF 2 MG/ML VIAL IV PUSH PRN ×3 (04:30→15:25)
[2016-01-14] MEDS: CEFEPIME INJ 2,000 MG in SODIUM CHLORIDE 0.9% INJ 100 ML IV SCH (04:31)
[2016-01-14 05:11] LABS: AUTOMATED NEUTROPHIL # 22.3 TH/MM3 (1.8-7.7); BASOPHIL # 0.1 TH/MM3 (0-0.2); BASOPHIL % 0.3 % (0.0-2.0); EOSINOPHIL # 0.2 TH/MM3 (0-0.4); EOSINOPHIL % 0.7 % (0.0-4.0); HEMATOCRIT 30.3 % (39.0-51.0); LYMPH % 6.8 % (9.0-44.0); LYMPHOCYTE # 1.8 TH/MM3 (1.0-4.8); MEAN CELL VOLUME 89.7 FL (80.0-100.0); MEAN CORPUSCULAR HEMOGLOBIN 29.3 PG (27.0-34.0); MEAN CORPUSCULAR HGB CONC 32.6 % (32.0-36.0); MONO % 5.4 % (0.0-8.0); NEUT % 86.8 % (16.0-70.0); PLATELET COUNT 193 TH/MM3 (150-450); RED BLOOD COUNT 3.38 MIL/MM3 (4.50-5.90); RED CELL DISTRIBUTION WIDTH 16.2 % (11.6-17.2); WHITE BLOOD COUNT 25.7 TH/MM3 (4.0-11.0)
[2016-01-14 05:13] LABS: HEMO FLAGS AUTO DIFF
[2016-01-14 05:50] LABS: ALKALINE PHOSPHATASE 233 U/L (45-117); ALT (GPT) 40 U/L (12-78); ANION GAP 12 MEQ/L (5-15); AST (GOT) 41 U/L (15-37); BICARBONATE 18.6 MEQ/L (21.0-32.0); BLOOD UREA NITROGEN 70 MG/DL (7-18); CHLORIDE 114 MEQ/L (98-107); GLOMERULAR FILTRATION RATE 31 ML/MIN (>89); POTASSIUM 3.1 MEQ/L (3.5-5.1); SODIUM (NA) 145 MEQ/L (136-145); TOTAL BILIRUBIN ADULT 1.6 MG/DL (0.2-1.0)
[2016-01-14] MEDS: INSULIN ASPART SUPPLEMENTAL SCALE SQ SCH ×4 (06:00→18:40)
[2016-01-14] MEDS: CHLORHEXIDINE 0.12% (ORAL KIT) 15 ML CUP MT SCH ×2 (07:52→23:12)
[2016-01-14] MEDS: POTASSIUM CL 40 MEQ/30 ML LIQ UDC J-TUBE SCH (07:52)
[2016-01-14] MEDS ORDERED: POTASSIUM CHLOR 40 MEQ PREMIX 100 ML IV ONE (08:00)
[2016-01-14 08:01] LABS: BANDS 1 % (0-6); METAMYELOCYTES 2 % (0-1); NEUTROPHIL # MANUAL DIFF 23.9 TH/MM3 (1.8-7.7); POLYS (SEG NEUTROPHILS) 90 % (16-70); WBC DIFF SAMPLE 100
[2016-01-14 08:02] LABS: PLATELET ESTIMATE SMEAR NORMAL (NORMAL); PLATELET MORPHOLOGY NORMAL (NORMAL); SCAN/DIFF FINAL DIFF MANUAL
[2016-01-14] MEDS: PANTOPRAZOLE SODIUM 40 MG VIAL IV PUSH SCH ×2 (09:49→21:05)
[2016-01-14] MEDS: predniSONE 10 MG TAB NG SCH (09:50)
[2016-01-14] MEDS: FUROSEMIDE 20 MG/2 ML VIAL IV PUSH SCH ×2 (09:50→18:41)
[2016-01-14] MEDS: NEOMYCIN/POLYMYXIN/BACITRACIN OINT 15 GM TUBE TOPICAL SCH ×2 (09:51→21:00)
[2016-01-14] MEDS: POVIDONE IODINE 10% OINT 30 GM TUBE TOPICAL SCH (09:51)
--- NOTE | 2016-01-14 10:13 | HHI.CCPN ---
Subjective Remarks/Hospital Course 55-year-old male brought by EMS with altered mental status. He has been confused for 2 days but this morning has been the worst. He has history of chronic opiate medications including methadone and morphine that he takes for pain management and hence they gave him Narcan IV which brought the GCS up to 13. The blood glucose was 74. He has open wounds from his right upper and bilateral lower extremities. He has history of hepatitis C. Last week he was pealing and eating shrimps. Bedside blood sugar was 76 in the ER. He was tachycardic in 1 teens and was intubated in the ED for airway protection. Admitted to ICU with sepsis due to Staph Aureus hand infection and E. Coli bacteriemia. 12/05 Patient remains sedated with Fentanyl and intubated. On Levophed 3 mics, Vasopressin 0.03 mics and Bicarb drip. T:99.8 TF placed on hold OGT to LIWS last night - gastric drainage 525ml overnight. 12/06 Patient is sedated with Fentanyl and intubated, On Levophed 3 mics, off vasopressin. Gastric output 400ml in 24 hrs. KUB abdomen yesterday mildly distended colon otherwise non specific KUB. 12/07 Patient is off sedation remains intubated tolerated CPAP for most day yesterday. Afebrile. on no drips, tolerating tube feeds. 12/08 Patient went to OR yesterday for debridement and irrigation of right forearm and wound VAC placement. Given 2U PRBC and 2u PLT yesterday and currently receiving 1of 2 u additional PRBC. Hgb 7.7, PLT 43 this morning. Patient also started on pressors now on Levophed 10 mics. Vasopressin 0.04 mics. On no sedation. 12/09 Patient remains intubated off pressors, Afebrile. Tolerating tube feeds. Afebrile. 12/10 Patient is sedated with Fentanyl and intubated. Awake and follows commands off sedation. Afebrile. 12/11 Patient had ?SVT overnight given Lopressor 2.5mg IV x1, Remains intubated and sedated with Fentanyl. Afebrile. Tolerating TF. 12/12 Patient spoked fever last night with T: 101.5, sedated with Fentanyl and intubated. 12/13 Patient had an episode of desaturation overnight required increase FIO2/ PEE now on ACV with RR 14, TV 550, PEEP: 12, FIO2 60% with sats 100% CT chest performed overnight showed b/l consolidation and small pleural effusion. Had T: 100.0 last night. 12/14 Tolerating PS 15/CPAP 10 FiO2 40% with rSBI 38, weaning. . Awake and alert , following commands. Hypotensive overnight and levophed restarted up to 12 mcg/ min. Nurse has been weaning throughout the day. Suspected adrenal insufficiency as he was on prednisone as outpatient for gout and has not been on stress dose steroids. Given decadron. 12/15 Transfused 1 unit PRBC for Hgb 7.0 yesterday, 1 unit PRBC for Hgb 6.6 today and now Hgb 8.3. Does not clinically have e/o active GI bleeding and wound vac output nonbloody. Stool 1500 output, C diff negative. No abdominal pain. Remains Awake and alert, remained on CPAP 10/5 last night and is now tolerating CPAP 5/5. 12/16: Extubated yesterday tolerating well. Breathing comfortably. Able to follow commands. UO 1.8 L in 24 hours. Na slightly increased to 153. 12/17: Significantly worse this AM. WBC up to 28 from 16. Hgb 5.2 from 7.9. tachycardic. pale this AM. states he feels tired. Continues on BiPAP. Plan for debridement of his arms today. LIJ CVL does not have any signs of overt infection. 12/18: Blood cell count continues to rise today to 30 from 28. Required 1 unit of blood for hemoglobin of 6.6 which improved to 7.7 this morning. However, patient remains tachycardic in the 120s and significantly pale. CT abdomen and pelvis ordered and pending. Tachypneic with respiratory rate in the 30s. Only small amount of dark tarry stool yesterday with approximately 300 cc of stool output. C. difficile toxin negative 3. After discussion with infectious disease, restart vancomycin, cefepime, Flagyl, micafungin. Horn cultures are pending. Per discussion with GI, will not scope as endoscopy is high risk given his tenuous respiratory status this point. Slightly worse hypernatremia as well as worsening acute kidney injury this morning. 12/19: POD 1 s/p ex-lap, washout for perforated ascending colon with extended right hemicolectomy, primary ileocolic anastamosis, open abdomen, septic shock, acute hypoxic and hypercarbic respiratory failure. Significantly critically ill overnight: required 6L ivf resuscitation, 1 unit prbc, norepinephrine, vasopressin, stress dose hydrocortisone. This morning, remains on high-dose vasopressors. still has large volume ivf requirement. Significant SIRS response. Vent requirements increasing with all this volume resuscitation, PEEP up to 10. He remains critically ill, and although I do believe we have surgical source control, I anticipate he will continue to clinically decline before he starts to make improvements. 12/20: Off pressors. follows commands on sedation holiday. +11L over last 3 days during acute illness, +22L since admission. We are going to have to get some of this volume back before we are able to close him given his severe anasarca. 12/21: Taken back to the OR yesterday afternoon for washout and completion colectomy. Postoperatively was significantly under resuscitated as well as had ongoing active oozing. Patient was coagulopathy. The patient was in distributive and hemorrhagic shock. The patient was given multiple units of blood products overnight. Patient was thrombocytopenic, hypofibrinogenemic, coagulopathic. Given significant volume of blood product resuscitation: 24h blood products: 13 prbc 8 ffp 2 plt 1 10-pack cryo This morning continues to have significant amount of bright red output out of his BEV and wound VAC, approximately 500 cc an hour out of his wound VAC, and approximately 75 an mils every 10 minutes out of a BEV. I discussed with surgery and we will correct his coagulopathy and plan to go back to the OR for exploration early this afternoon. 12/22: Clinically starting to improve hemodynamically. off vasopressors. Net+ 26L. CVP rising to 14. UOP adequate. Hgb 7 this AM. 12/23 Seen postop. Hypertensive, BP improved with additional pain medicine. Remains net positive but urine output excellent 3L in 24 hours. Remains on Lasix gtt. went to OR today status post wound VAC change and partial closure 12/24: Fascia was closed yesterday. Wound Vac in place. Remains sedated. -2L negative balance, but with increasing BUN/creat. Discontinue Bumex infusion, start scheduled Bumex 2 mg IV every 12 with IV albumin. 12/25: Overnight became hypotensive requiring Levophed to be restarted. Hemoglobin dropped to 4.1. Noted to have bloody drainage from G-tube and dorsal ileostomy with black stool output 12/26: s/p EGD yesterday-2 gastric ulcers bleeding, stomach a significant part had decreased discoloration indicating probable ischemia. s/p epi injection and cauterization. Continues to have coffee ground G tube output, black tarry Ileostomy output. Hemoglobin down to 6.4 getting 2 units of PRBC. GI recent recommending intervention radiology consult. 12/27: For trach today. Meds ordered. Hgb decline consistent with recent transfusions and senescent cells. 12/28: Trach clean, dry. Start SBTs. Check prealbumin. Continue TPN. 12/29: Looks in direction of voice. I have not seen more purposeful reactions. Line > 12 days old, replace today. Prealbumin 20 - good response to TPN. 12/30: Remains vented, encephalopathic, puss like drainage from left hand, WBC increased 01/01: no significant changes. continues to remain critically ill with minimal improvements over the last week. abdomen closed. still total body volume overloaded. 01/02: more awake today than yesterday. continues to be critically ill with minimal improvements overall. need to look towards placement. -900 yesterday. 01/03: up in chair yesterday. tolerated short run of SBT 15/5/40%. net euvolemic. wbc downtrending. 01/04: wbc slightly uptrended 33 from 30, more acidotic on BMP (14 from 20). Also spiking fevers to 102.3 despite tylenol. continues on broad spectrum abx. yesterday's cxr had what may be a new LLL infiltrate. today, though, he is following commands and more awake and alert. 01/05: LLL pna clinically and based on bronch. CT c/a/p done last night without any significant intra-abdominal change. small left pleural effusion which appears simple in nature, and LLL consolidation. ID broadened abx. today , wbc downtrending. culture data pending. Hgb 7 this AM. 01/06: Underwent exploratory laparotomy last night with findings of bleeding gastric ulcer which was oversewn by Dr. Verdin abdomen left open with wound VAC in place. Received 3 units PRBCs overnight. Remains on Wesley-Synephrine drip this morning for hypotension. Remains sedated, on mechanical ventilation. 01/07: Remains sedated, on mechanical ventilation. For abdominal incision site closure today. Significant positive fluid balance over the last 2 days. Off pressors currently. Lasix to mobilize fluid. 01/08: Remains sedated, on mechanical ventilation via tracheostomy. Underwent abdominal incision site closure this morning. Remains off pressors. Anasarca noted. Blood cultures from 01/04 growing Nava parapsilosis. 01/09: Drowsy/sedated, arousable, on mechanical ventilation via tracheostomy. TPN started yesterday. To be started on J-tube feeds per discussion with surgery 01/10: Sedated, arousable, on mechanical ventilation via tracheostomy. Remains on TPN. J-tube feeds being started today. 01/11: Was on T piece yesterday and rested on C Pap overnight. On TPN. Advanced J-tube feeds to 20 cc an hour today. Attempt T piece as tolerated. 01/12: Awake, tracks with his eyes. On C Pap overnight. Tolerated T piece during daytime yesterday. 01/13: Awake and alert. Was on T piece all day yesterday and was placed back on C Pap at 1:45 AM this morning. Does not appear to be in any acute distress. Tolerating J-tube feeds at 20 cc per hour. Objective Vital Signs Date Time Temp Pulse Resp B/P Pulse Ox O2 Delivery O2 Flow Rate FiO2 01/14/16 08:00 113 01/14/16 08:00 98.1 15 107/71 99 01/14/16 08:00 35 01/13/16 20:47 T-piece Intake and Output 01/13/16 01/13/16 01/14/16 08:00 16:00 00:00 Intake Total 1084 ml 929 ml 1003 ml Output Total 1282 ml 1640 ml 1060 ml Balance -198 ml -711 ml -57 ml Result Diagram: 01/14/16 0445 01/14/16 0445 Imaging Last 48 hours Impressions Chest X-Ray 01/07/16 0000 Signed Impressions: Service Date/Time: Thursday, January 07, 2016 04:23 - CONCLUSION: Worsening consolidation or atelectasis at the left mid and lower lung. Some degree of left effusion may also be contributing to this. Arnaldo Reyes MD Chest X-Ray 01/06/16 0000 Signed Impressions: Service Date/Time: Wednesday, January 06, 2016 19:46 - CONCLUSION: 1. Basilar airspace disease improved from January 04. Tracheostomy and right central line in satisfactory position. Nomi Falcon MD Abdomen/Pelvis CT 01/06/16 0000 Signed Impressions: Service Date/Time: Wednesday, January 06, 2016 22:07 - CONCLUSION: 1. Over the last day there is development of a large mass in the left upper quadrant measuring up to 18 x 13 cm which appears to be associated with the stomach. The mass is characterized by somewhat concentric areas of decreased and increased attenuation with multiple locules of air. Primary differential diagnosis is hemorrhage into the gastric wall with gastric pneumatosis and possibly gastric ischemia. Gastrostomy is again noted anteriorly. 2. Remainder the exam is relatively stable with drainage tube left upper quadrant, splenectomy, bilateral effusions, feeding jejunostomy and drain within the pelvis. There is also diffuse anasarca and nonobstructing renal calculi. Nomi Falcon MD Last Impressions Chest X-Ray 12/17/15 0600 Signed Impressions: Service Date/Time: Thursday, December 17, 2015 03:25 - CONCLUSION: Persistent left lower lobe consolidation. Osmar Alegria MD Chest CT 12/14/15 0000 Signed Impressions: Service Date/Time: Monday, December 14, 2015 06:12 - CONCLUSION: 1. Cardiomegaly with bilateral consolidation, likely CHF. Pneumonia cannot be excluded. 2. Small right pleural effusion. Wojciech Lockhart MD Abdomen X-Ray 12/06/15 0000 Signed Impressions: Service Date/Time: November 09:53 - CONCLUSION: Nonspecific KUB. Air is seen within a mildly distended colon but contrast is clearly seen in the rectum. Arnaldo Reyes MD Abdomen/Pelvis CT 12/04/15 0000 Signed Impressions: Service Date/Time: Friday, December 04, 2015 16:24 - CONCLUSION: 1. Mildly distended small bowel in the mid and lower abdomen. Contrast is clearly seen extending into the distal small bowel and ascending colon so a complete obstruction is not seen. A transition point is not seen. This pattern likely represents an ileus versus a partial obstruction. 2. Multiple nonobstructing renal stones. 3. Abnormal appearance of the spleen which appears to represent a splenule. It could be correlated if the patient has had either primary splenic removal or splenic injury and this is what is either left of the spleen or a developing splenule. This is likely of no significance. 4. Mild ascites. 5. Increased density within the gallbladder representing either tumefactive sludge or noncalcified stones. 6. Mild bilateral pleural effusions with prominent areas of lower lobe atelectasis or consolidation at the bases bilaterally. 7. Subacute to chronic bilateral rib fractures and multiple compression fractures in the lower thoracic and lumbar spine as described above. The patient does have a prior CT examination from 08/26/2014. All the compression deformities described above are new when compared to that scan. Arnaldo Reyes MD Head CT 12/02/15 1013 Signed Impressions: Service Date/Time: Wednesday, December 02, 2015 11:00 - CONCLUSION: 1. No intracranial abnormality is seen. 2. Air-fluid level in the right maxillary sinus. Arnaldo Reyes MD Objective Remarks GENERAL: Middle-aged male, lying in bed, trached. HEENT: NCAT. mucous membranes moist. NECK: trach in place. obese neck. difficult to assess JVD. right IJ triple lumen catheter in place, site clean RESPIRATORY: C Pap/T piece as tolerated Breath sounds equal bilaterally. scattered rhonchi, no wheezing . CARDIOVASCULAR: S1S2 regular, regular rhythm without murmurs, rubs. GASTROINTESTINAL: Reena dressing over midline incision site. BEV drains in place , J tube in place, nondistended. BS not appreciated. MUSCULOSKELETAL: Generalized anasarca. Multiple open wounds in the lower extremity. RUE - with wound vac in place. L upper extremity dressing in place. NEURO: Awake, opens eyes spontaneously. Follows commands. 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 - liquid tylenol 650mg per tube q6h. - Dilaudid 2mg iv q4h prn for breakthrough pain. - oxycodone 20mg per tube q4h scheduled. Respiratory Acute respiratory failure-extubated 12/16/15, reintubated for surgery 12/18 Acute hypoxic and hypercarbic respiratory failure Acute healthcare associated pneumonia- resolved NIGEL on home CPAP - Tracheostomy 12/27 - Vent bundle. Head of bed at 30 degrees. Nebs q6h and q2h prn. - on C Pap/pressure support since 01/09, T piece trials since 01/10. Tolerates T piece all day and rested on C Pap at night. We will attempt T piece as tolerated. CV Hemorrhagic shock- resolved Septic Shock- resolved Volume overload - keep map > 65 mmHg. - Cortisol level 14 on 12/14 - Prednisone held. Decreased hydrocortisone to 50mg [id number] on 01/10. Stopped hydrocortisone on 01/12 and started prednisone 10 mg daily 01/13 - Echo 12/07 EF 65-70%, grade I diastolic dysfunction Increased lasix to 40mg IV [id number] on 01/11. Renal: DEIRDRE Hypernatremia - Strict intake output, monitor and replete electrolytes, follow BUN/creatinine. - On diuretics to mobilize fluid. - Removed NaCl from TPN in v/o hypernatremia FEN/GI Acute GIB, hemorrhagic shock Perforated right colon with colitis s/p ex-lap, extended right hemicolectomy with primary ileocolic anastamosis, washout, open abdomen (12/18) s/p Elap 01/05 for bleeding gastric ulcer Acute protein calorie malnutrition- severe Hypokalemia Total body volume overload Intravascular hypervolemia - Protonix BID - EGD 12/26/15 showed 2 large gastric ulcers with active bleeding status post epinephrine infusion and cauterization - ICU electrolyte protocol - Daily CMP - OR on 12/24 with Removal of VAC, washout, pancreatic drain and pelvic drain placement, gastrostomy, feeding jejunostomy and closure of abdomen with application of VAC device in the subcutaneous tissue. - TFs via jejunostomy - off TPN 01/01. TPN resumed 01/08 @ 42cc/hr with lipids. - on full TF at goal - held 01/05 for bleeding gastric ulcer s/p Elap. Ordered J tube trophic feeds to be resumed 01/10(d/w surgery on 01/09). Tolerating J tube feeds at 20cc/hr, advance to goal as tolerated. Plan on stopping TPN once tube feeds at goal. Heme: Acute Anemia secondary to acute blood loss Thrombocytopenia Hypofibrinogenemia secondary to consumption and acute blood loss Coagulopathy secondary to consumption and acute blood loss --monitor CBC --Hep PLT ab negative on 12/03 - Ferrous Sulfate TID - transfused 3 units PRBCs 01/05- ID Severe sepsis Necrotizing Fascitis - MSSA on wound culture 12/07. Ecoli bacteremia 12/01 MSSA bacteremia 12/05. Cleared on f/u blood culture 12/07, 12/12. Candidemia (blood culture 01/04 with Nava parapsilosis) Sepsis of Intra-abdominal origin. C. difficile toxic megacolon --Debridement 12/01 p.m at bedside by Dr Pedro and Dr. Hartmann --R hand, forearm and olecranon bursa I and D and Wound vac 12/07 Dr Chavez. -- IV cefepime,flagyl IV. Micafungin stopped per ID 01/08. Amphotericin B started by ID on 01/08 and stopped 01/09. Fluconazole started 01/09 per ID. On IV vanc per ID. Discussed with ID on 01/08. Nava and blood probably from an intra- abdominal source. White count up to 30,000, will repeat UA and urine culture if indicated as well as sputum Gram stain and cultures and inform ID --12/17 blood cultures: NGTD 12/17 central line culture: NGTD 12/17 urine cultures: NGTD 12/17 sputum cultures: NGTD C. difficile toxin 12/17: Negative (3rd negative toxin screen) -01/04 Blood culture with nava parapsilosis 01/04: horn culture, bronch with BAL, 01/04: CT chest/abd/pelvis without contrast: LLL consolidation, otherwise unchanged. 01/04: clinically LLL VAP. 01/08 Blood cultures: no growth so far --ID Dr. Becerra Endocrine: Hyperglycemia of Critical Illness Diabetes - off Insulin drip - Moderate SSI - Levemir BID on hold. - Prednisone 10mg po daily. slow taper started however pt back on pressors after Elap on 01/06 so started hydrocortisone 50 mg IV every 8 hourly on 01/06, decreased to [id number] on 01/11. Stopped Hydrocortisone 01/12 and starting prednisone 10mg daily on 01/13 Prophylaxis: GI Prophylaxis: -- Protonix IV BID DVT Prophylaxis: - SCDs Resume subcutaneous heparin when okay with general surgery Lines: -- Sandoval -- right IJ TLC 01/04 Critical Care: The total critical care time was 35 minutes. Time to perform other separately billable procedures was not included in the critical care time. Problem Qualifiers (1) Respiratory failure: Qualified Code: J96.00 - Acute respiratory failure, unspecified whether with hypoxia or hypercapnia (2) Altered mental status: Qualified Code: R41.0 - Delirium (3) Sepsis: Qualified Code: A41.9 - Sepsis, due to unspecified organism Christopher Clark MD Jan 14, 2016 10:13
[2016-01-14] MEDS: FLUCONAZOLE 400 MG PREMIX BAG 200 ML IV SCH (11:56)
--- NOTE | 2016-01-14 12:17 | HHI.IDPN ---
Subjective Subjective Remarks Pt is doing OK afebrile off pressors tolerating TF @ 20 cc/hr w/o residuals Pt was tolerating T piece all day but then got dyspneic and now is back on vent on the rate Antibiotics cefepime IV, IV flagyl fluconazole Lines RSC TLC Past Medical History RA HCV sp splenectomy Allergies: Coded Allergies: Compazine (Verified Allergy, Severe, VOMITING, RASH, 08/26/14) SLURRED SPEECH, MIGRAINES Demerol (Verified Allergy, Severe, VOMITING, 08/26/14) Levaquin (Verified Allergy, Severe, 08/26/14) Penicillin (Verified Allergy, Severe, Rash, 08/26/14) Phenergan (Verified Allergy, Severe, VOMITING, 08/26/14) Uncoded Allergies: ANTI-CONVULSIVES (Allergy, Severe, MIGRAINES, SLURRED SPEECH,, 01/23/14) Objective . Vital Signs Date Time Temp Pulse Resp B/P Pulse Ox O2 Delivery O2 Flow Rate FiO2 01/14/16 10:48 20 01/14/16 10:48 20 01/14/16 10:11 96 35 01/14/16 10:00 35 01/14/16 10:00 119 01/14/16 09:46 100 35 01/14/16 08:00 113 01/14/16 08:00 98.1 113 15 107/71 99 01/14/16 08:00 35 01/14/16 07:18 100 35 01/14/16 06:00 106 01/14/16 04:01 100 35 01/14/16 04:00 98.1 122 30 122/87 100 01/14/16 04:00 35 01/14/16 04:00 122 01/14/16 02:00 122 01/14/16 01:45 35 01/14/16 01:40 96 35 01/14/16 00:00 119 01/14/16 00:00 98.1 119 22 133/86 96 01/13/16 22:00 114 01/13/16 20:47 94 T-piece 35 01/13/16 20:00 98.3 119 16 146/96 97 01/13/16 20:00 122 01/13/16 18:00 114 01/13/16 17:04 24 01/13/16 16:00 98.5 113 29 144/91 96 01/13/16 16:00 113 01/13/16 14:00 100 01/13/16 01/13/16 01/14/16 15:00 23:00 07:00 Intake Total 929 ml 1003 ml 894 ml Output Total 1640 ml 1060 ml 870 ml Balance -711 ml -57 ml 24 ml IV Total 304 ml 464 ml 189 ml Tube Feeding 159 ml 125 ml 93 ml TPN/PPN 346 ml 318 ml 283 ml Lipid 36 ml 209 ml Tube Irrigant 120 ml 60 ml 120 ml Output Urine Total 700 ml 450 ml 400 ml Stool Total 150 ml 100 ml 50 ml Gastric Drainage Total 300 ml 200 ml 100 ml Drainage Total 490 ml 310 ml 320 ml . Laboratory Tests Test 01/13/16 01/14/16 04:40 04:45 White Blood Count 31.2 TH/MM3 25.7 TH/MM3 Red Blood Count 3.47 MIL/MM3 3.38 MIL/MM3 Hemoglobin 10.3 GM/DL 9.9 GM/DL Hematocrit 30.8 % 30.3 % Mean Corpuscular Volume 88.9 FL 89.7 FL Mean Corpuscular Hemoglobin 29.6 PG 29.3 PG Mean Corpuscular Hemoglobin 33.3 % 32.6 % Concent Red Cell Distribution Width 15.7 % 16.2 % Platelet Count 206 TH/MM3 193 TH/MM3 Mean Platelet Volume 9.9 FL 10.8 FL Neutrophils (%) (Auto) 92.0 % 86.8 % Lymphocytes (%) (Auto) 2.1 % 6.8 % Monocytes (%) (Auto) 5.7 % 5.4 % Eosinophils (%) (Auto) 0.1 % 0.7 % Basophils (%) (Auto) 0.1 % 0.3 % Neutrophils # (Auto) 28.7 TH/MM3 22.3 TH/MM3 Lymphocytes # (Auto) 0.7 TH/MM3 1.8 TH/MM3 Monocytes # (Auto) 1.8 TH/MM3 1.4 TH/MM3 Eosinophils # (Auto) 0.0 TH/MM3 0.2 TH/MM3 Basophils # (Auto) 0.0 TH/MM3 0.1 TH/MM3 CBC Comment AUTO DIFF AUTO DIFF Differential Total Cells 100 100 Counted Neutrophils % (Manual) 79 % 90 % Band Neutrophils % 7 % 1 % Lymphocytes % 7 % 6 % Monocytes % 6 % 1 % Neutrophils # (Manual) 27.1 TH/MM3 23.9 TH/MM3 Metamyelocytes 1 % 2 % Differential Comment FINAL DIFF FINAL DIFF MANUAL MANUAL Platelet Estimate NORMAL NORMAL Platelet Morphology Comment NORMAL NORMAL Red Cell Morphology Comment NORMAL NORMAL Laboratory Tests Test 01/13/16 01/13/16 01/14/16 04:40 14:20 04:45 Sodium Level 143 MEQ/L 145 MEQ/L Potassium Level 2.9 MEQ/L 4.3 MEQ/L 3.1 MEQ/L Chloride Level 111 MEQ/L 114 MEQ/L Carbon Dioxide Level 18.5 MEQ/L 18.6 MEQ/L Anion Gap 14 MEQ/L 12 MEQ/L Blood Urea Nitrogen 69 MG/DL 70 MG/DL Creatinine 2.14 MG/DL 2.20 MG/DL Estimat Glomerular Filtration 32 ML/MIN 31 ML/MIN Rate Random Glucose 192 MG/DL 149 MG/DL Calcium Level 7.7 MG/DL 8.0 MG/DL Phosphorus Level 2.7 MG/DL Magnesium Level 2.0 MG/DL Total Bilirubin 1.9 MG/DL 1.6 MG/DL Aspartate Amino Transf 42 U/L 41 U/L (AST/SGOT) Alanine Aminotransferase 50 U/L 40 U/L (ALT/SGPT) Alkaline Phosphatase 224 U/L 233 U/L Total Protein 4.7 GM/DL 4.6 GM/DL Albumin 1.2 GM/DL 1.1 GM/DL Microbiology Date/Time Procedure Status Source Growth 01/13/16 14:40 Gram Stain - Final Resulted Sputum Endotracheal 01/13/16 14:40 Sputum Culture Resulted Sputum Endotracheal Pending 01/13/16 14:45 Urine Culture Received Urine Catheterized Urine Pending Imaging Last Impressions Chest X-Ray 01/07/16 0000 Signed Impressions: Service Date/Time: Thursday, January 07, 2016 04:23 - CONCLUSION: Worsening consolidation or atelectasis at the left mid and lower lung. Some degree of left effusion may also be contributing to this. Arnaldo Reyes MD Abdomen/Pelvis CT 01/06/16 0000 Signed Impressions: Service Date/Time: Wednesday, January 06, 2016 22:07 - CONCLUSION: 1. Over the last day there is development of a large mass in the left upper quadrant measuring up to 18 x 13 cm which appears to be associated with the stomach. The mass is characterized by somewhat concentric areas of decreased and increased attenuation with multiple locules of air. Primary differential diagnosis is hemorrhage into the gastric wall with gastric pneumatosis and possibly gastric ischemia. Gastrostomy is again noted anteriorly. 2. Remainder the exam is relatively stable with drainage tube left upper quadrant, splenectomy, bilateral effusions, feeding jejunostomy and drain within the pelvis. There is also diffuse anasarca and nonobstructing renal calculi. Nomi Falcon MD Chest CT 01/05/16 0000 Signed Impressions: Service Date/Time: Tuesday, January 05, 2016 23:15 - CONCLUSION: 1. Persistent left lower lobar consolidation. Improved consolidative infiltrates in the right lower lung. 2. Interval increase size bilateral pleural effusions , left greater than right. Osmar Alegria MD Celiac/Hepatic Arteriogram 12/27/15 0000 Signed Impressions: Service Date/Time: December 13:41 - CONCLUSION: 1. No active GI bleed identified. Robert Mckinney MD Abdomen X-Ray 12/18/15 0000 Signed Impressions: Service Date/Time: Friday, December 18, 2015 16:05 - CONCLUSION: Feeding tube tip is at the gastric antrum. Arnaldo Elias MD Head CT 12/02/15 1013 Signed Impressions: Service Date/Time: Wednesday, December 02, 2015 11:00 - CONCLUSION: 1. No intracranial abnormality is seen. 2. Air-fluid level in the right maxillary sinus. Arnaldo Reyes MD Physical Exam GENERAL: On vent , awake alert SKIN: + minimal jaundice. Anasarca HEENT: + mild icterus, no nasal discharge Chemosis + NECK: Trach in place CARDIOVASCULAR: systolic murmur in base of heart RESPIRATORY/CHEST: scattered rhonchi on auscultation.L side with crackes GASTROINTESTINAL: dressing in place JPsx2 in place with quite purulent drainage Stoma with brown stool Incision with dressing in place- serosangious d/c noted on inferior aspect GENITOURINARY: Sandoval catheter in place with clear light yellow urine with sediment MUSCULOSKELETAL: Extremities no cyanosis, edema 3+- 4 + pitting with poorly healing wounds RUE with VAC in place, serosang dc NEUROLOGICAL: awake, makes eye contact but would attempt to speeak Per RN was noding approprieteley earier LINES: NO evidence of infection Assessment & Plan Remarks Sepsis related to Cdiff and Intra abdominal peritonitis. - sp subtotal colectomy and ileostomy SP colon perfocation and intraperitoneal gross contamination ? Cdiff Colitis Noted Cdiff PCR is negative3/3 ? Zinc preparation in perianal care could cause false negative test. Path c/o Cdiff Colitis. - repeat path favouring ischemia RUE severe nec fasc due to MSSA - skin grafting was planned, but cancelled - S/P I and D x 3 - clinically resolved MSSA bacteremia 2/2 RUE infx - resolved E.coli bacteremia on presentation -source is likely gut Immunosuppressed on steroids, s/p splenectomy. PCN allergy, but no probs with Keflex per report. ARF/ DEIRDRE/ATN 2/2 sepsis -stable Recurretn life threatening upper GI bleeding 2/2 bleeding ulcers Persistent leukocytosis - liekly reactive leukocytosis 2/2 massive gstic bleeding C. parapsilosa fungemia ? sourece intraabd vs (less likely) line - repeat BC negative PLAN: Continue IV cefepime,flagyl IV for now - anticipate to dc if WBC cont to decrease cont fluconazole - anticipate 4 weeks ophthalmology cnsult D/W RN dw Argelia Herrera MD Jan 14, 2016 12:17
--- NOTE | 2016-01-14 14:12 | MP ---
cc: ADONAY VERDIN MD DATE OF SURGERY: 01/09/2016 PREOPERATIVE DIAGNOSIS Open abdomen, history of bleeding gastric ulcer. POSTOPERATIVE DIAGNOSIS Open abdomen, history of bleeding gastric ulcer. PROCEDURE PERFORMED Planned reexploration, exploratory laparotomy, closure of open abdomen. SURGEON Dr. Adonay Verdin. [employer]ERK See OR sheet. ANESTHESIA GETA. IV FLUIDS 600 ccs. ESTIMATED BLOOD LOSS 5 ccs. DRAINS HELENA dressing negative pressure device. SPECIMENS None. COMPLICATIONS None. WOUND CLASSIFICATION Contaminated. INDICATION The patient is a 55-year-old male who presented with complicated medical and surgical history. The patient has undergone multiple abdominal explorations and washouts. Recently the patient had closed abdomen but developed a bleeding anterior wall gastric ulcer 48 hours ago for which he went to hemorrhagic shock necessitating aggressive blood products, fluid resuscitation and went to the OR for an exploratory laparotomy, gastrotomy with ligation of gastric ulcer. The patient recovered from this acute episode, was less open with a negative pressure vac placement. He was scheduled for planned reoperation for closure. DETAILS OF PROCEDURE The patient was taken to the operating room and placed in the supine position. He was prepped and draped in usual sterile fashion. The patient was on trache and on the ventilator. Brief time-out done stating correct patient, procedure and surgical site, we were all in agreement with this. Attention directed to the vac, the plastic vac dressing was removed and discarded. Ostomy appliance was also removed. The abdomen was reexplored noted viable healthy bowel and stomach. Incision suture line on the stomach felt to be completely intact with no evidence of necrotic tissue. There was a minimal purulence, mostly serosanguineous fluid though. Next, the abdomen was then closed with #1 looped running PDS x2 was done to the fascia after the abdomen was irrigated with a liter of normal saline. Following this the skin was loosely approximated with nicky. Next, the subcutaneous tissue was irrigated also. A HELENA dressing was then placed and placed to suction with good seal. The patient tolerated the procedure well. The patient remains in fair condition. Lap and instrument counts were correct at the end of the procedure, no complications. The patient was on vent via trache and taken to [facility]. MD JULIEN Chávez/BEV /8:06 AM /1:59 PM
[2016-01-14] MEDS: TROPICAMIDE 1% OPTH SOLN 2 ML BTL EACH EYE SCH ×3 (15:05→15:22)
[2016-01-14] MEDS: FAT EMULSION 20% INJ 250 ML (Daily over 8 hours) IV-CENTRAL SCH (21:04)
[2016-01-14] MEDS: CLINIMIX 4.25/25 (Cust.Renal Central) 1000 mL- </= 42 mls/hr IV-CENTRAL SCH ×8 (21:47)
[2016-01-14] MEDS: VASOPRESSIN INJ 40 UNITS in DEXTROSE 5% IN WATER 100ML INJ 98 ML IV SCH ×2 (23:33)
[2016-01-15] VITALS (17 sets, daily range): BP systolic 110–125; BP diastolic 64–81; PULSE 101–130; RESP 9–30; TEMP 98.4–99.2; O2SAT 95–100
[2016-01-15] MEDS: oxyCODONE HCL ORAL CONC 20 MG/ML SYRINGE PO SCH ×6 (02:38→20:24)
[2016-01-15] MEDS: metroNIDAZOLE 500 MG INJ 100 ML IV SCH ×3 (03:32→20:23)
[2016-01-15] MEDS: CHLORHEXIDINE GLUCONATE 2 % 1 PACK (2 CLOTHS) TOP SCH ×2 (04:00→22:55)
[2016-01-15] MEDS: CEFEPIME INJ 2,000 MG in SODIUM CHLORIDE 0.9% INJ 100 ML IV SCH (05:01)
[2016-01-15] MEDS: METOPROLOL TARTRATE 5 MG/5 ML VIAL IV PUSH SCH ×3 (05:01→20:24)
[2016-01-15] MEDS: ACETAMINOPHEN 650 MG/20.3 ML UDC PO SCH ×4 (05:15→18:00)
--- NOTE | 2016-01-15 05:59 | MB ---
cc: AQUILES VALVERDE M.D. DATE OF CONSULTATION 01/14/2016 REQUESTING PHYSICIAN Jeyson Becerra MD REASON FOR CONSULTATION Rule out fungal endophthalmitis. HISTORY OF PRESENT ILLNESS The patient is a 55-year-old man with a very complicated recent medical history who is currently in the ICU on ventilator with positive fungal blood cultures. Ophthalmology consultation was requested to rule out fungal endogenous endophthalmitis. PHYSICAL EXAMINATION The physical examination is limited to the eyes. Basically, visual acuity could not be checked due to the patient's mental status and mechanical ventilation. The anterior segments are normal. Dilated fundus examination shows a clear vitreous with no retinal or choroidal infiltrate. IMPRESSION No evidence of endogenous endophthalmitis. Aquiles Valverde MD TCG/SSB /5:13 PM /5:53 AM
[2016-01-15 06:27] LABS: AUTOMATED NEUTROPHIL # 17.5 TH/MM3 (1.8-7.7); BASOPHIL # 0.1 TH/MM3 (0-0.2); BASOPHIL % 0.5 % (0.0-2.0); EOSINOPHIL # 0.3 TH/MM3 (0-0.4); EOSINOPHIL % 1.5 % (0.0-4.0); HEMATOCRIT 27.6 % (39.0-51.0); LYMPH % 7.6 % (9.0-44.0); LYMPHOCYTE # 1.6 TH/MM3 (1.0-4.8); MEAN CELL VOLUME 90.1 FL (80.0-100.0); MEAN CORPUSCULAR HEMOGLOBIN 29.4 PG (27.0-34.0); MEAN CORPUSCULAR HGB CONC 32.6 % (32.0-36.0); MONO % 7.3 % (0.0-8.0); NEUT % 83.1 % (16.0-70.0); PLATELET COUNT 182 TH/MM3 (150-450); RED BLOOD COUNT 3.07 MIL/MM3 (4.50-5.90); RED CELL DISTRIBUTION WIDTH 16.6 % (11.6-17.2)
[2016-01-15] MEDS: INSULIN ASPART SUPPLEMENTAL SCALE SQ SCH ×4 (06:30→18:01)
[2016-01-15 06:32] LABS: HEMO FLAGS AUTO DIFF
[2016-01-15 06:56] LABS: ALKALINE PHOSPHATASE 268 U/L (45-117); ALT (GPT) 32 U/L (12-78); ANION GAP 13 MEQ/L (5-15); AST (GOT) 34 U/L (15-37); BICARBONATE 16.7 MEQ/L (21.0-32.0); BLOOD UREA NITROGEN 74 MG/DL (7-18); CHLORIDE 115 MEQ/L (98-107); GLOMERULAR FILTRATION RATE 31 ML/MIN (>89); POTASSIUM 3.6 MEQ/L (3.5-5.1); SODIUM (NA) 145 MEQ/L (136-145); TOTAL BILIRUBIN ADULT 1.3 MG/DL (0.2-1.0)
--- NOTE | 2016-01-15 07:44 | HHI.CCPN ---
Subjective Remarks/Hospital Course 55-year-old male brought by EMS with altered mental status. He has been confused for 2 days but this morning has been the worst. He has history of chronic opiate medications including methadone and morphine that he takes for pain management and hence they gave him Narcan IV which brought the GCS up to 13. The blood glucose was 74. He has open wounds from his right upper and bilateral lower extremities. He has history of hepatitis C. Last week he was pealing and eating shrimps. Bedside blood sugar was 76 in the ER. He was tachycardic in 1 teens and was intubated in the ED for airway protection. Admitted to ICU with sepsis due to Staph Aureus hand infection and E. Coli bacteriemia. 12/05 Patient remains sedated with Fentanyl and intubated. On Levophed 3 mics, Vasopressin 0.03 mics and Bicarb drip. T:99.8 TF placed on hold OGT to LIWS last night - gastric drainage 525ml overnight. 12/06 Patient is sedated with Fentanyl and intubated, On Levophed 3 mics, off vasopressin. Gastric output 400ml in 24 hrs. KUB abdomen yesterday mildly distended colon otherwise non specific KUB. 12/07 Patient is off sedation remains intubated tolerated CPAP for most day yesterday. Afebrile. on no drips, tolerating tube feeds. 12/08 Patient went to OR yesterday for debridement and irrigation of right forearm and wound VAC placement. Given 2U PRBC and 2u PLT yesterday and currently receiving 1of 2 u additional PRBC. Hgb 7.7, PLT 43 this morning. Patient also started on pressors now on Levophed 10 mics. Vasopressin 0.04 mics. On no sedation. 12/09 Patient remains intubated off pressors, Afebrile. Tolerating tube feeds. Afebrile. 12/10 Patient is sedated with Fentanyl and intubated. Awake and follows commands off sedation. Afebrile. 12/11 Patient had ?SVT overnight given Lopressor 2.5mg IV x1, Remains intubated and sedated with Fentanyl. Afebrile. Tolerating TF. 12/12 Patient spoked fever last night with T: 101.5, sedated with Fentanyl and intubated. 12/13 Patient had an episode of desaturation overnight required increase FIO2/ PEE now on ACV with RR 14, TV 550, PEEP: 12, FIO2 60% with sats 100% CT chest performed overnight showed b/l consolidation and small pleural effusion. Had T: 100.0 last night. 12/14 Tolerating PS 15/CPAP 10 FiO2 40% with rSBI 38, weaning. . Awake and alert , following commands. Hypotensive overnight and levophed restarted up to 12 mcg/ min. Nurse has been weaning throughout the day. Suspected adrenal insufficiency as he was on prednisone as outpatient for gout and has not been on stress dose steroids. Given decadron. 12/15 Transfused 1 unit PRBC for Hgb 7.0 yesterday, 1 unit PRBC for Hgb 6.6 today and now Hgb 8.3. Does not clinically have e/o active GI bleeding and wound vac output nonbloody. Stool 1500 output, C diff negative. No abdominal pain. Remains Awake and alert, remained on CPAP 10/5 last night and is now tolerating CPAP 5/5. 12/16: Extubated yesterday tolerating well. Breathing comfortably. Able to follow commands. UO 1.8 L in 24 hours. Na slightly increased to 153. 12/17: Significantly worse this AM. WBC up to 28 from 16. Hgb 5.2 from 7.9. tachycardic. pale this AM. states he feels tired. Continues on BiPAP. Plan for debridement of his arms today. LIJ CVL does not have any signs of overt infection. 12/18: Blood cell count continues to rise today to 30 from 28. Required 1 unit of blood for hemoglobin of 6.6 which improved to 7.7 this morning. However, patient remains tachycardic in the 120s and significantly pale. CT abdomen and pelvis ordered and pending. Tachypneic with respiratory rate in the 30s. Only small amount of dark tarry stool yesterday with approximately 300 cc of stool output. C. difficile toxin negative 3. After discussion with infectious disease, restart vancomycin, cefepime, Flagyl, micafungin. Horn cultures are pending. Per discussion with GI, will not scope as endoscopy is high risk given his tenuous respiratory status this point. Slightly worse hypernatremia as well as worsening acute kidney injury this morning. 12/19: POD 1 s/p ex-lap, washout for perforated ascending colon with extended right hemicolectomy, primary ileocolic anastamosis, open abdomen, septic shock, acute hypoxic and hypercarbic respiratory failure. Significantly critically ill overnight: required 6L ivf resuscitation, 1 unit prbc, norepinephrine, vasopressin, stress dose hydrocortisone. This morning, remains on high-dose vasopressors. still has large volume ivf requirement. Significant SIRS response. Vent requirements increasing with all this volume resuscitation, PEEP up to 10. He remains critically ill, and although I do believe we have surgical source control, I anticipate he will continue to clinically decline before he starts to make improvements. 12/20: Off pressors. follows commands on sedation holiday. +11L over last 3 days during acute illness, +22L since admission. We are going to have to get some of this volume back before we are able to close him given his severe anasarca. 12/21: Taken back to the OR yesterday afternoon for washout and completion colectomy. Postoperatively was significantly under resuscitated as well as had ongoing active oozing. Patient was coagulopathy. The patient was in distributive and hemorrhagic shock. The patient was given multiple units of blood products overnight. Patient was thrombocytopenic, hypofibrinogenemic, coagulopathic. Given significant volume of blood product resuscitation: 24h blood products: 13 prbc 8 ffp 2 plt 1 10-pack cryo This morning continues to have significant amount of bright red output out of his BEV and wound VAC, approximately 500 cc an hour out of his wound VAC, and approximately 75 an mils every 10 minutes out of a BEV. I discussed with surgery and we will correct his coagulopathy and plan to go back to the OR for exploration early this afternoon. 12/22: Clinically starting to improve hemodynamically. off vasopressors. Net+ 26L. CVP rising to 14. UOP adequate. Hgb 7 this AM. 12/23 Seen postop. Hypertensive, BP improved with additional pain medicine. Remains net positive but urine output excellent 3L in 24 hours. Remains on Lasix gtt. went to OR today status post wound VAC change and partial closure 12/24: Fascia was closed yesterday. Wound Vac in place. Remains sedated. -2L negative balance, but with increasing BUN/creat. Discontinue Bumex infusion, start scheduled Bumex 2 mg IV every 12 with IV albumin. 12/25: Overnight became hypotensive requiring Levophed to be restarted. Hemoglobin dropped to 4.1. Noted to have bloody drainage from G-tube and dorsal ileostomy with black stool output 12/26: s/p EGD yesterday-2 gastric ulcers bleeding, stomach a significant part had decreased discoloration indicating probable ischemia. s/p epi injection and cauterization. Continues to have coffee ground G tube output, black tarry Ileostomy output. Hemoglobin down to 6.4 getting 2 units of PRBC. GI recent recommending intervention radiology consult. 12/27: For trach today. Meds ordered. Hgb decline consistent with recent transfusions and senescent cells. 12/28: Trach clean, dry. Start SBTs. Check prealbumin. Continue TPN. 12/29: Looks in direction of voice. I have not seen more purposeful reactions. Line > 12 days old, replace today. Prealbumin 20 - good response to TPN. 12/30: Remains vented, encephalopathic, puss like drainage from left hand, WBC increased 01/01: no significant changes. continues to remain critically ill with minimal improvements over the last week. abdomen closed. still total body volume overloaded. 01/02: more awake today than yesterday. continues to be critically ill with minimal improvements overall. need to look towards placement. -900 yesterday. 01/03: up in chair yesterday. tolerated short run of SBT 15/5/40%. net euvolemic. wbc downtrending. 01/04: wbc slightly uptrended 33 from 30, more acidotic on BMP (14 from 20). Also spiking fevers to 102.3 despite tylenol. continues on broad spectrum abx. yesterday's cxr had what may be a new LLL infiltrate. today, though, he is following commands and more awake and alert. 01/05: LLL pna clinically and based on bronch. CT c/a/p done last night without any significant intra-abdominal change. small left pleural effusion which appears simple in nature, and LLL consolidation. ID broadened abx. today , wbc downtrending. culture data pending. Hgb 7 this AM. 01/06: Underwent exploratory laparotomy last night with findings of bleeding gastric ulcer which was oversewn by Dr. Verdin abdomen left open with wound VAC in place. Received 3 units PRBCs overnight. Remains on Wesley-Synephrine drip this morning for hypotension. Remains sedated, on mechanical ventilation. 01/07: Remains sedated, on mechanical ventilation. For abdominal incision site closure today. Significant positive fluid balance over the last 2 days. Off pressors currently. Lasix to mobilize fluid. 01/08: Remains sedated, on mechanical ventilation via tracheostomy. Underwent abdominal incision site closure this morning. Remains off pressors. Anasarca noted. Blood cultures from 01/04 growing Nava parapsilosis. 01/09: Drowsy/sedated, arousable, on mechanical ventilation via tracheostomy. TPN started yesterday. To be started on J-tube feeds per discussion with surgery 01/10: Sedated, arousable, on mechanical ventilation via tracheostomy. Remains on TPN. J-tube feeds being started today. 01/11: Was on T piece yesterday and rested on C Pap overnight. On TPN. Advanced J-tube feeds to 20 cc an hour today. Attempt T piece as tolerated. 01/12: Awake, tracks with his eyes. On C Pap overnight. Tolerated T piece during daytime yesterday. 01/13: Awake and alert. Was on T piece all day yesterday and was placed back on C Pap at 1:45 AM this morning. Does not appear to be in any acute distress. Tolerating J-tube feeds at 20 cc per hour. 01/14: Drowsy, easily arousable. Was on T piece all day yesterday and rested on C Pap at night. Tolerating J-tube feeds at 40 cc an hour with goal of 60 cc per hour. On TPN which will be discontinued after current bag. BEV drain with cloudy drainage. Objective Vital Signs Date Time Temp Pulse Resp B/P Pulse Ox O2 Delivery O2 Flow Rate FiO2 01/15/16 06:01 15 01/15/16 06:00 106 01/15/16 04:22 100 35 01/15/16 04:00 98.7 118/76 01/13/16 20:47 T-piece Intake and Output 01/14/16 01/14/16 01/14/16 07:59 15:59 23:59 Intake Total 894 ml 1294 ml 1170 ml Output Total 870 ml 1650 ml 1020 ml Balance 24 ml -356 ml 150 ml Result Diagram: 01/15/1661501/15/16615 Imaging Last 48 hours Impressions Chest X-Ray 01/07/16 0000 Signed Impressions: Service Date/Time: Thursday, January 07, 2016 04:23 - CONCLUSION: Worsening consolidation or atelectasis at the left mid and lower lung. Some degree of left effusion may also be contributing to this. Arnaldo Reyes MD Chest X-Ray 01/06/16 0000 Signed Impressions: Service Date/Time: Wednesday, January 06, 2016 19:46 - CONCLUSION: 1. Basilar airspace disease improved from January 04. Tracheostomy and right central line in satisfactory position. Nomi Falcon MD Abdomen/Pelvis CT 01/06/16 0000 Signed Impressions: Service Date/Time: Wednesday, January 06, 2016 22:07 - CONCLUSION: 1. Over the last day there is development of a large mass in the left upper quadrant measuring up to 18 x 13 cm which appears to be associated with the stomach. The mass is characterized by somewhat concentric areas of decreased and increased attenuation with multiple locules of air. Primary differential diagnosis is hemorrhage into the gastric wall with gastric pneumatosis and possibly gastric ischemia. Gastrostomy is again noted anteriorly. 2. Remainder the exam is relatively stable with drainage tube left upper quadrant, splenectomy, bilateral effusions, feeding jejunostomy and drain within the pelvis. There is also diffuse anasarca and nonobstructing renal calculi. Nomi Falcon MD Last Impressions Chest X-Ray 12/17/15 0600 Signed Impressions: Service Date/Time: Thursday, December 17, 2015 03:25 - CONCLUSION: Persistent left lower lobe consolidation. Osmar Alegria MD Chest CT 12/14/15 0000 Signed Impressions: Service Date/Time: Monday, December 14, 2015 06:12 - CONCLUSION: 1. Cardiomegaly with bilateral consolidation, likely CHF. Pneumonia cannot be excluded. 2. Small right pleural effusion. Wojciech Lockhart MD Abdomen X-Ray 12/06/15 0000 Signed Impressions: Service Date/Time: November 09:53 - CONCLUSION: Nonspecific KUB. Air is seen within a mildly distended colon but contrast is clearly seen in the rectum. Arnaldo Reyes MD Abdomen/Pelvis CT 12/04/15 0000 Signed Impressions: Service Date/Time: Friday, December 04, 2015 16:24 - CONCLUSION: 1. Mildly distended small bowel in the mid and lower abdomen. Contrast is clearly seen extending into the distal small bowel and ascending colon so a complete obstruction is not seen. A transition point is not seen. This pattern likely represents an ileus versus a partial obstruction. 2. Multiple nonobstructing renal stones. 3. Abnormal appearance of the spleen which appears to represent a splenule. It could be correlated if the patient has had either primary splenic removal or splenic injury and this is what is either left of the spleen or a developing splenule. This is likely of no significance. 4. Mild ascites. 5. Increased density within the gallbladder representing either tumefactive sludge or noncalcified stones. 6. Mild bilateral pleural effusions with prominent areas of lower lobe atelectasis or consolidation at the bases bilaterally. 7. Subacute to chronic bilateral rib fractures and multiple compression fractures in the lower thoracic and lumbar spine as described above. The patient does have a prior CT examination from 08/26/2014. All the compression deformities described above are new when compared to that scan. Arnaldo Reyes MD Head CT 12/02/15 1013 Signed Impressions: Service Date/Time: Wednesday, December 02, 2015 11:00 - CONCLUSION: 1. No intracranial abnormality is seen. 2. Air-fluid level in the right maxillary sinus. Arnaldo eRyes MD Objective Remarks GENERAL: Middle-aged male, lying in bed, trached. HEENT: NCAT. mucous membranes moist. NECK: trach in place. obese neck. difficult to assess JVD. right IJ triple lumen catheter in place, site clean RESPIRATORY: C Pap/T piece as tolerated Breath sounds equal bilaterally. scattered rhonchi, no wheezing . CARDIOVASCULAR: S1S2 regular, regular rhythm without murmurs, rubs. GASTROINTESTINAL: Reena dressing over midline incision site. BEV drains in place , J tube in place, nondistended. BS not appreciated. MUSCULOSKELETAL: Generalized anasarca. Multiple open wounds in the lower extremity. RUE - with wound vac in place. L upper extremity dressing in place. NEURO: Awake, opens eyes spontaneously. 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 - liquid tylenol 650mg per tube q6h. - Dilaudid 2mg iv q4h prn for breakthrough pain. - oxycodone 20mg per tube q4h scheduled. Respiratory Acute respiratory failure-extubated 12/16/15, reintubated for surgery 12/18 Acute hypoxic and hypercarbic respiratory failure Acute healthcare associated pneumonia- resolved NIGEL on home CPAP - Tracheostomy 12/27 - Vent bundle. Head of bed at 30 degrees. Nebs q6h and q2h prn. - on C Pap/pressure support since 01/09, T piece trials since 01/10. Tolerates T piece all day and rested on C Pap at night. We will attempt T piece as tolerated. CV Hemorrhagic shock- resolved Septic Shock- resolved Volume overload - keep map > 65 mmHg. - Cortisol level 14 on 12/14 - Prednisone held. Decreased hydrocortisone to 50mg O30tate on 01/10. Stopped hydrocortisone on 01/12 and started prednisone 10 mg daily 01/13 - Echo 12/07 EF 65-70%, grade I diastolic dysfunction Increased lasix to 40mg IV [id number] on 01/11. Renal: DEIRDRE Hypernatremia - Strict intake output, monitor and replete electrolytes, follow BUN/creatinine. - On diuretics to mobilize fluid. - Removed NaCl from TPN in v/o hypernatremia. TPN to be discontinued 01/14 FEN/GI Acute GIB, hemorrhagic shock Perforated right colon with colitis s/p ex-lap, extended right hemicolectomy with primary ileocolic anastamosis, washout, open abdomen (12/18) s/p Elap 01/05 for bleeding gastric ulcer Acute protein calorie malnutrition- severe Hypokalemia Total body volume overload Intravascular hypervolemia - Protonix 40mg IV BID - EGD 12/26/15 showed 2 large gastric ulcers with active bleeding status post epinephrine infusion and cauterization - OR on 12/24 with Removal of VAC, washout, pancreatic drain and pelvic drain placement, gastrostomy, feeding jejunostomy and closure of abdomen with application of VAC device in the subcutaneous tissue. - off TPN 01/01. TPN resumed 01/08 @ 42cc/hr with lipids - to be stopped on after current bag. - on full TF at goal - held 01/05 for bleeding gastric ulcer s/p Elap. Ordered J tube trophic feeds to be resumed 01/10(d/w surgery on 01/09). Tolerating J tube feeds at 40cc/hr, advance to goal as tolerated. Plan on stopping TPN once tube feeds at goal on 01/14. Heme: Acute Anemia secondary to acute blood loss Thrombocytopenia Hypofibrinogenemia secondary to consumption and acute blood loss Coagulopathy secondary to consumption and acute blood loss --monitor CBC --Hep PLT ab negative on 12/03 - Ferrous Sulfate TID - transfused 3 units PRBCs 01/05- ID Severe sepsis Necrotizing Fascitis - MSSA on wound culture 12/07. Ecoli bacteremia 12/01 MSSA bacteremia 12/05. Cleared on f/u blood culture 12/07, 12/12. Candidemia (blood culture 01/04 with Nava parapsilosis) Sepsis of Intra-abdominal origin. C. difficile toxic megacolon --Debridement 12/01 p.m at bedside by Dr Pedro and Dr. Hartmann --R hand, forearm and olecranon bursa I and D and Wound vac 12/07 Dr Chavez. -- IV cefepime,flagyl IV. Micafungin stopped per ID 01/08. Amphotericin B started by ID on 01/08 and stopped 01/09. Fluconazole started 01/09 per ID. On IV vanc per ID. Discussed with ID on 01/08. Nava parapsilosis in blood culture from 01/04 most likely from an intra-abdominal source(central line was changed on 01/04). BEV drain with cloudy drainage. Discussed with Dr. Becerra ID on 01/13. Continued intra-abdominal infection on Abx per ID. General surgery following. Last set of blood cultures have been negative. Plan Repeat CT Abd/pelvis if clinically worsening or sepsis worsens. Opthalm consult requested by Dr. Becerra in v/o candidemia to eval for endopthalmitis. --12/17 blood cultures: NGTD 12/17 central line culture: NGTD 12/17 urine cultures: NGTD 12/17 sputum cultures: NGTD C. difficile toxin 12/17: Negative (3rd negative toxin screen) -01/04 Blood culture with nava parapsilosis 01/04: horn culture, bronch with BAL, 01/04: CT chest/abd/pelvis without contrast: LLL consolidation, otherwise unchanged. 01/04: clinically LLL VAP. 01/08 Blood cultures: no growth --ID Dr. Becerra Endocrine: Hyperglycemia of Critical Illness Diabetes - off Insulin drip - Moderate SSI - Levemir BID on hold. - Prednisone 10mg po daily. slow taper started however pt back on pressors after Elap on 01/06 so started hydrocortisone 50 mg IV every 8 hourly on 01/06, decreased to [id number] on 01/11. Stopped Hydrocortisone 01/12 and starting prednisone 10mg daily on 01/13 Prophylaxis: GI Prophylaxis: -- Protonix IV BID DVT Prophylaxis: - SCDs Resume subcutaneous heparin when okay with general surgery Lines: -- Sandoval -- right IJ TLC 01/04 Critical Care: The total critical care time was 35 minutes. Time to perform other separately billable procedures was not included in the critical care time. Problem Qualifiers (1) Respiratory failure: Qualified Code: J96.00 - Acute respiratory failure, unspecified whether with hypoxia or hypercapnia (2) Altered mental status: Qualified Code: R41.0 - Delirium (3) Sepsis: Qualified Code: A41.9 - Sepsis, due to unspecified organism Christopher Clark MD Jan 15, 2016 07:44
[2016-01-15 08:47] LABS: BANDS 3 % (0-6); EOSINOPHILS 1 % (0-4); MYELOCYTES 1 % (0-0); NEUTROPHIL # MANUAL DIFF 17.4 TH/MM3 (1.8-7.7); PLATELET ESTIMATE SMEAR NORMAL (NORMAL); PLATELET MORPHOLOGY NORMAL (NORMAL); POLYS (SEG NEUTROPHILS) 79 % (16-70); SCAN/DIFF FINAL DIFF MANUAL; WBC DIFF SAMPLE 100
[2016-01-15] MEDS: POTASSIUM CL 40 MEQ/30 ML LIQ UDC J-TUBE SCH (09:31)
[2016-01-15] MEDS: FUROSEMIDE 20 MG/2 ML VIAL IV PUSH SCH ×2 (09:31→18:00)
[2016-01-15] MEDS: PANTOPRAZOLE SODIUM 40 MG VIAL IV PUSH SCH ×2 (09:31→20:24)
[2016-01-15] MEDS: predniSONE 10 MG TAB NG SCH (09:31)
[2016-01-15] MEDS: HYDROmorphone HCL PF 2 MG/ML VIAL IV PUSH PRN ×3 (09:33→15:26)
[2016-01-15] MEDS: NEOMYCIN/POLYMYXIN/BACITRACIN OINT 15 GM TUBE TOPICAL SCH ×2 (09:34→22:52)
[2016-01-15] MEDS: POVIDONE IODINE 10% OINT 30 GM TUBE TOPICAL SCH (09:34)
[2016-01-15] MEDS: CHLORHEXIDINE 0.12% (ORAL KIT) 15 ML CUP MT SCH ×2 (09:34→22:52)
[2016-01-15] MEDS: REMOVE OLD PATCH TD SCH (12:00)
[2016-01-15] MEDS: FLUCONAZOLE 400 MG PREMIX BAG 200 ML IV SCH (12:33)
[2016-01-15] MEDS: fentaNYL 75 MCG/HR PATCH TD SCH (12:36)
--- NOTE | 2016-01-15 16:15 | PD.CONS ---
Consult Service Palliative Care Consult Requested By Dr. Clark . Primary Care Physician Ramone Villa MD . Reason for Consultation a. To assist with evaluation and management of symptoms including: pain, AMS , anxiety b. To assist medical decision maker(s) with: better understanding of current medical conditions; weighing benefits/burdens of medical treatment options; making medical treatment decisions. . HPI History of Present Illness Mr. Holcomb is a 55-year-old male who presented to [place] ED on 12/02/15 for evaluation of altered mental status. The patient's family reported the patient had progressively worsening &confusion over a 2 day period. The patient patient has a history of chronic pain which is managed with methadone and morphine. Upon arrival to the ED the patient GCS was 12. Narcan was administered which brought the patient's GCS of 13. The patient was lethargic and speech was repetitive. His appearance was disheveled. The patient had open wounds on his right upper and bilateral lower extremities. He was tachycardic and hypothermic , rectal temperature of 97.5. Blood glucose was 74. The patient was emergently intubated in the ED for airway protection. PMH is significant for Hep C, NIGEL, gout, RA, HTN, chronic pain, and migraines. Additional diagnostic findings in the ED: * Vital signs: Pulse 110, respirations 14, BP 114/56, oxygen saturation 93% on 2 L via nasal cannula, rectal temperature 97.4 * WBC: 13.6, hemoglobin 8.9, hematocrit 26.8, platelets 214, neutrophils 98.0% * Sodium: 139, potassium 4.7, chloride 105, carbon dioxide 16.6, glucose 73, calcium 7.5 * Lactic acid: 1.9 * BUN: 119, creatinine 6.05, GFR 10 * Total bilirubin: 1.4, AST 114, ALT 16, alkaline phosphatase 268 * Ammonia: 71 * Total creatine kinase: 988 * CK-MB: 33.7 * Troponin: 0.07 * Total protein: 5.4, albumin 1.3 * PT: 11.7, INR 1.1, APTT 35.9 * Urinalysis: Showing protein, occult blood, leukocyte esterase, urine RBC, urine WBC, bacteria and mucus. No culture indicated. * EKG: Normal sinus rhythm, tachycardia, normal axis, nonspecific ST-T wave changes. Heart rate of 114 bpm. * Chest x-ray: Mild cardiomegaly, suspected mild atelectasis at the lung bases, minimal prominence to the interstitium which could represent some pulmonary venous hypertension * Head CT: No intracranial abnormality seen, air-fluid level in the right maxillary sinus * Blood cultures: Growing Escherichia coli * Wound culturehand: Going staph aureus * Wound culturearm: Growing staph aureus Patient was admitted to [facility] for further evaluation and medical management of acute respiratory failure, severe sepsis/septic shock and acute kidney injury. The patient remained intubated and sedated on mechanical vent, requiring pressor support. Infectious disease was consulted, following for severe necrotizing fascitis secondary to MSSA with MSSA bacteremia. Patient also has E. Coli bacteremia from unknown source, GI etiology is suspected. Plastic surgery is following s/p wound debridements and wound VAC. Patient having persistent anemia/thrombocytopenia requiring multiple transfusions. 12/18/15: GI was consulted for evaluation of anemia and intermittent melena. Patient requiring frequent transfusions- S/P 8 units PRBC. Recommendations were made for an EGD/colonoscopy when medically stable to rule out pseudomembranes and ischemic colitis 12/19/15: WBC increased from 28 to 30. Required 1 unit of blood for hemoglobin of 6.6 which improved to 7.7 this morning. Taken to the OR for exploratory laparotomy - washout for perforated ascending colon with extended right hemicolectomy. Patient required increase support over night - IVF resuscitation , 1 unit PRBC, norepinephrine, vasopressin, stress dose hydrocortisone. 12/21/15: he patient was taken back to the OR for washout and completion colectomy. Postoperatively was significantly under resuscitated as well as had ongoing active oozing. Patient was coagulopathy. The patient was in distributive and hemorrhagic shock. The patient was given multiple units of blood products overnight. 12/22/15: Patient continues to have significant amount of bright red output from his BEV and wound VAC (approximately 500ml/hr from the wound VAC and 75ml q10 minutes from the BEV). Patient again returned to the OR r/t postop bleeding, however there was no evidence of active bleeding, no old clots. 12/27/15: S/P EGD which showed two bleeding gastric ulcers (which were cauterized), stomach a significant part had decreased discoloration indicating probable ischemia and esophagitis. Patient continues to have coffee ground output from Gtube and black tarry output from ileostomy. Hemoglobin down to 6.4 , transfused with 2 units of PRBC. Patient going to IR for angiogram/ embolization. 12/28/15: Tracheostomy 01/05/16: Bronchoscopy completed, copious amounts of purulent secretions were suctioned from the left lower lobe. Left lower lobe PNA east on bronchoscopy. CT of chest and abdomen/pelvis showed no significant intra-abdominal changes, small left pleural effusion and left lower lobe validation. 01/07/16: Patient underwent exploratory laparotomy with findings of bleeding gastric ulcer which was oversewn by Dr. Verdin. Abdomen was left open with wound VAC in place. Patient received 3 units PRBCs overnight, remains on Wesley- Synephrine drip for hypotension. Patient remains sedated on mechanical ventilation. 01/09/16: Patient underwent abdominal incision site closure this morning. Blood cultures from 01/04 growing Ajcey parapsilosis. Started on TPN. Past Family Social History Coded Allergies: Compazine (Verified Allergy, Severe, VOMITING, RASH, 08/26/14) SLURRED SPEECH, MIGRAINES Demerol (Verified Allergy, Severe, VOMITING, 08/26/14) Levaquin (Verified Allergy, Severe, 08/26/14) Penicillin (Verified Allergy, Severe, Rash, 08/26/14) Phenergan (Verified Allergy, Severe, VOMITING, 08/26/14) Uncoded Allergies: ANTI-CONVULSIVES (Allergy, Severe, MIGRAINES, SLURRED SPEECH,, 01/23/14) Past Medical History Chronic hepatitis C NIGEL Rheumatoid arthritis Chronic low back pain Migraines Gout HTN CKD GERD Colon polyps . Past Surgical History Back surgery Colonoscopy Hip surgery Left knee surgery Splenectomy Tonsillectomy . Current Medications Medications (Trade) Dose Ordered Sig/[place] Route Start Time Stop Time Status Last Admin (NS Flush) 2 ml UNSCH PRN IVF 12/02/15 10:15 01/05/16 20:56 Miscellaneous Information 1 Q361D XX 12/02/15 13:45 (Chlorhexidine 2% Cloth) Taper DAILY@04 TOP 12/03/15 04:00 11/28/16 03:59 01/15/16 04:00 (Chlorhexidine 2% Cloth) 3 pack UNSCH PRN TOP 12/02/15 13:45 (Peridex 0.12% Liq) 15 ml BID@08,20 MT 12/06/15 20:00 01/15/16 09:34 (Betadine 10% Oint) 1 applic DAILY TOPICAL 12/12/15 15:00 01/15/16 09:34 (Dilaudid Pf Inj) 2 mg Q2H PRN IV PUSH 12/16/15 14:00 01/15/16 12:34 Ferrous Sulfate 325 mg 325 mg BID PO 12/17/15 09:00 Hold (Flagyl 500 Mg Inj) 100 ml @ 100 mls/hr Q8H IV 12/18/15 12:00 01/15/16 12:33 (D50w (Vial) Inj) 25 ml UNSCH PRN IV PUSH 12/30/15 15:30 (NovoLOG SUPPLEMENTAL SCALE) 1 Q6HR SQ 12/30/15 15:30 01/15/16 12:34 (Levemir Inj) 15 units Q12HR SQ 12/31/15 21:00 Hold 01/01/16 08:49 (Roxicodone Intensol Liq) 20 mg Q4H PO 01/03/16 13:00 01/15/16 12:36 (Duragesic 75 Mcg Patch.72 Hr) 1 patch Q3D TD 01/03/16 12:00 01/15/16 12:36 Miscellaneous Information 1 Q3D TD 01/06/16 12:00 01/15/16 12:00 (Tylenol 650 Mg/ 20 ml Liq) 650 mg Q6H PO 01/03/16 11:15 01/15/16 12:52 Neomycin/ Polymyxin/ Bacitracin 1 applic 1 applic Q12HR TOPICAL 01/03/16 21:00 01/15/16 09:34 (Vancomycin Consult Pharmacy) 0 ml @ 0 mls/hr UNSCH OTHER 01/05/16 16:15 Heparin Sodium (Porcine) 5000 units 5,000 units Q12HR SQ 01/06/16 10:00 Hold 01/06/16 11:43 Phenylephrine HCl 40 mg/Dextrose 500 ml @ 0 mls/hr TITRATE IV 01/06/16 20:45 01/07/16 11:43 Vasopressin 40 units/Dextrose 100 ml @ 1.5 mls/hr Q24H IV 01/06/16 23:33 01/06/16 00:15 (Levophed-Dextrose Drip) 250 ml @ 0 mls/hr TITRATE IV 01/06/16 23:45 (Brethine Inj) 1 mg UNSCH PRN SQ 01/06/16 23:45 Pantoprazole Sodium 40 mg 40 mg Q12HR IV PUSH 01/09/16 10:00 01/15/16 09:31 Sodium Chloride 5.5 meq/Sodium Acetate 29.5 meq/ Potassium Chloride 20 meq/ Magnesium Chloride 5 meq/ Calcium Chloride 4.5 meq/ Multivitamins 10 ml/Folic Acid 1 mg/Amino Acids/ Dextrose 1,042.1719 ml @ 42 mls/hr Q24H IV-CENTRAL 01/09/16 20:00 01/15/16 18:00 01/14/16 21:47 Fat Emulsion Intravenous 250 ml @ 31.25 mls/ hr Q24H IV-CENTRAL 01/09/16 20:00 01/15/16 18:00 01/14/16 21:04 Fluconazole/ Sodium Chloride 200 ml @ 100 mls/hr Q24H IV 01/10/16 12:00 01/15/16 12:33 (Maxipime Inj/NS Inj) 100 ml @ 200 mls/hr Q24H IV 01/12/16 06:00 01/15/16 05:01 (Lasix Inj) 40 mg BID@09,18 IV PUSH 01/12/16 18:00 01/15/16 09:31 (KCl 40 Meq/30 ml Liq) 40 meq DAILY J-TUBE 01/14/16 09:00 01/15/16 09:31 (Deltasone) 10 mg DAILY NG 01/14/16 09:00 01/15/16 09:31 Miscellaneous Information SPECIFIC LAB TO BE DRAWN:[facility]OM [facility] LEVEL DATE TO... ONCE ONCE XX 01/16/16 06:00 01/16/16 06:01 (Lopressor Inj) 2.5 mg Q8HR IV PUSH 01/15/16 14:00 01/15/16 12:53 Family History Father from unknown cancer Substance Use Tobacco: Alcohol: Prescription med abuse: Illicits: Physical Exam Vital Signs Date Time Temp Pulse Resp B/P Pulse Ox O2 Delivery O2 Flow Rate FiO2 01/15/16 13:16 95 35 01/15/16 12:00 98.4 128 26 121/78 99 01/15/16 12:00 35 01/15/16 12:00 128 11/29/16 10:00 122 01/15/16 09:36 98 35 01/15/16 09:00 98 35 01/15/16 08:00 35 01/15/16 08:00 98.8 120 30 125/81 97 01/15/16 08:00 116 01/15/16 07:28 98 35 01/15/16 06:01 15 01/15/16 06:00 106 01/15/16 04:22 100 35 01/15/16 04:00 98.7 112 11 118/76 100 01/15/16 04:00 112 01/15/16 02:00 109 01/15/16 00:00 104 01/15/16 00:00 35 01/15/16 00:00 98.9 101 9 116/76 100 01/14/16 23:45 100 35 01/14/16 22:00 35 01/14/16 22:00 91 01/14/16 21:29 100 35 01/14/16 20:00 114 01/14/16 20:00 98.7 114 14 115/75 99 01/14/16 18:00 114 01/14/16 16:03 96 35 01/14/16 16:00 103 01/14/16 16:00 35 01/14/16 16:00 99.0 103 24 138/88 99 01/14/16 15:55 14 01/14/16 14:00 112 01/14/16 01/15/16 18:59 06:59 Intake Total 1294 ml 1747 ml Output Total 1650 ml 2030 ml Balance -356 ml -283 ml IV Total 585 ml 916 ml Tube Feeding 196 ml 481 ml TPN/PPN 453 ml 230 ml Tube Irrigant 60 ml 120 ml Output Urine Total 575 ml 950 ml Stool Total 225 ml 320 ml Gastric Drainage Total 200 ml 350 ml Drainage Total 650 ml 410 ml Exam CONSTITUTIONAL/GENERAL: This is an adequately nourished patient, in no apparent distress. TUBES/LINES/DRAINS: SKIN: No jaundice, rashes, or lesions. Ecchymoses on upper extremities. No wounds seen anteriorly. Skin temperature appropriate. Not diaphoretic. HEAD: Atraumatic. Normocephalic. EYES: Pupils equal and round and reactive. Extraocular motions intact. No scleral icterus. No injection or drainage. Fundi not examined. ENT: Hearing grossly normal. Nose without bleeding or purulent drainage. Throat without visible erythema, exudates, masses, or lesions. NECK: Trachea midline. Supple, nontender. No palpable thyroid enlargement or nodularity. CARDIOVASCULAR: Regular rate and rhythm without murmurs, gallops, or rubs. No JVD. Peripheral pulses symmetric. RESPIRATORY/CHEST: Symmetric, unlabored respirations. Clear to auscultation. Breath sounds equal bilaterally. No wheezes, rales, or rhonchi. GASTROINTESTINAL: Abdomen soft, non-tender, nondistended. No hepato-splenomegaly , or palpable masses. No guarding. Bowel sounds present. GENITOURINARY: Without palpable bladder distension. Sandoval catheter in place. MUSCULOSKELETAL: Extremities without clubbing, cyanosis, or edema. No joint tenderness or effusion noted. No calf tenderness. No mottling or clubbing. LYMPHATICS: No palpable cervical or supraclavicular adenopathy. NEUROLOGICAL: Awake and alert. Motor and sensory grossly within normal limits. Follows commands. Cognitively sharp. Moves all extremities. PSYCHIATRIC: No obvious anxiety/depression. no apparent hallucinations or other psychotic thought process. Diagnostic Tests Laboratory Laboratory Tests Test 01/13/16 01/13/16 01/13/16 01/14/16 04:40 14:20 14:45 04:45 White Blood Count 31.2 TH/MM3 25.7 TH/MM3 (4.0-11.0) (4.0-11.0) Red Blood Count 3.47 MIL/MM3 3.38 MIL/MM3 (4.50-5.90) (4.50-5.90) Hemoglobin 10.3 GM/DL 9.9 GM/DL (13.0-17.0) (13.0-17.0) Hematocrit 30.8 % 30.3 % (39.0-51.0) (39.0-51.0) Mean Corpuscular Volume 88.9 FL 89.7 FL (80.0-100.0) (80.0-100.0) Mean Corpuscular Hemoglobin 29.6 PG 29.3 PG (27.0-34.0) (27.0-34.0) Mean Corpuscular Hemoglobin 33.3 % 32.6 % Concent (32.0-36.0) (32.0-36.0) Red Cell Distribution Width 15.7 % 16.2 % (11.6-17.2) (11.6-17.2) Platelet Count 206 TH/MM3 193 TH/MM3 (150-450) (150-450) Mean Platelet Volume 9.9 FL 10.8 FL (7.0-11.0) (7.0-11.0) Neutrophils (%) (Auto) 92.0 % 86.8 % (16.0-70.0) (16.0-70.0) Lymphocytes (%) (Auto) 2.1 % 6.8 % (9.0-44.0) (9.0-44.0) Monocytes (%) (Auto) 5.7 % (0.0-8.0) 5.4 % (0.0-8.0) Eosinophils (%) (Auto) 0.1 % (0.0-4.0) 0.7 % (0.0-4.0) Basophils (%) (Auto) 0.1 % (0.0-2.0) 0.3 % (0.0-2.0) Neutrophils # (Auto) 28.7 TH/MM3 22.3 TH/MM3 (1.8-7.7) (1.8-7.7) Lymphocytes # (Auto) 0.7 TH/MM3 1.8 TH/MM3 (1.0-4.8) (1.0-4.8) Monocytes # (Auto) 1.8 TH/MM3 1.4 TH/MM3 (0-0.9) (0-0.9) Eosinophils # (Auto) 0.0 TH/MM3 0.2 TH/MM3 (0-0.4) (0-0.4) Basophils # (Auto) 0.0 TH/MM3 0.1 TH/MM3 (0-0.2) (0-0.2) CBC Comment AUTO DIFF AUTO DIFF Differential Total Cells 100 100 Counted Neutrophils % (Manual) 79 % (16-70) 90 % (16-70) Band Neutrophils % 7 % (0-6) 1 % (0-6) Lymphocytes % 7 % (9-44) 6 % (9-44) Monocytes % 6 % (0-8) 1 % (0-8) Neutrophils # (Manual) 27.1 TH/MM3 23.9 TH/MM3 (1.8-7.7) (1.8-7.7) Metamyelocytes 1 % (0-1) 2 % (0-1) Differential Comment FINAL DIFF FINAL DIFF MANUAL MANUAL Platelet Estimate NORMAL NORMAL (NORMAL) (NORMAL) Platelet Morphology Comment NORMAL NORMAL (NORMAL) (NORMAL) Red Cell Morphology Comment NORMAL NORMAL (NORMAL) (NORMAL) Sodium Level 143 MEQ/L 145 MEQ/L (136-145) (136-145) Potassium Level 2.9 MEQ/L 4.3 MEQ/L 3.1 MEQ/L (3.5-5.1) (3.5-5.1) (3.5-5.1) Chloride Level 111 MEQ/L 114 MEQ/L (98-107) (98-107) Carbon Dioxide Level 18.5 MEQ/L 18.6 MEQ/L (21.0-32.0) (21.0-32.0) Anion Gap 14 MEQ/L (5-15) 12 MEQ/L (5-15) Blood Urea Nitrogen 69 MG/DL (7-18) 70 MG/DL (7-18) Creatinine 2.14 MG/DL 2.20 MG/DL (0.60-1.30) (0.60-1.30) Estimat Glomerular Filtration 32 ML/MIN (>89) 31 ML/MIN (>89) Rate Random Glucose 192 MG/DL 149 MG/DL (74-106) (74-106) Calcium Level 7.7 MG/DL 8.0 MG/DL (8.5-10.1) (8.5-10.1) Phosphorus Level 2.7 MG/DL (2.5-4.9) Magnesium Level 2.0 MG/DL (1.5-2.5) Total Bilirubin 1.9 MG/DL 1.6 MG/DL (0.2-1.0) (0.2-1.0) Aspartate Amino Transf 42 U/L (15-37) 41 U/L (15-37) (AST/SGOT) Alanine Aminotransferase 50 U/L (12-78) 40 U/L (12-78) (ALT/SGPT) Alkaline Phosphatase 224 U/L 233 U/L (45-117) (45-117) Total Protein 4.7 GM/DL 4.6 GM/DL (6.4-8.2) (6.4-8.2) Albumin 1.2 GM/DL 1.1 GM/DL (3.4-5.0) (3.4-5.0) Random Vancomycin Level 31.0 COMMENT 26.2 COMMENT Urine Color YELLOW (YELLW/STRAW) Urine Turbidity CLOUDY (CLEAR) Urine pH 5.5 (5.0-8.5) Urine Specific [place] 1.013 (1.002-1.035) Urine Protein 30 mg/dL (NEG-TRACE) Urine Glucose (UA) TRACE mg/dL (NEG) Urine Ketones NEG mg/dL (NEG) Urine Occult Blood SMALL (NEG) Urine Nitrite NEG (NEG) Urine Bilirubin NEG (NEG) Urine Urobilinogen LESS THAN 2.0 MG/DL (LESS THAN 2.0) Urine Leukocyte Esterase NEG (NEG) Urine RBC 7 /hpf (0-3) Urine WBC 20 /hpf (0-5) Urine WBC Clumps FEW (NONE) Urine Squamous Epithelial 1 /hpf (0-5) Cells Urine Amorphous Sediment RARE Urine Bacteria RARE /hpf (NONE) Urine Mucus FEW /lpf (OCC) Microscopic Urinalysis Comment CATH-CULTURE IND Test 01/15/16 06:16 White Blood Count 21.0 TH/MM3 (4.0-11.0) Red Blood Count 3.07 MIL/MM3 (4.50-5.90) Hemoglobin 9.0 GM/DL (13.0-17.0) Hematocrit 27.6 % (39.0-51.0) Mean Corpuscular Volume 90.1 FL (80.0-100.0) Mean Corpuscular Hemoglobin 29.4 PG (27.0-34.0) Mean Corpuscular Hemoglobin 32.6 % Concent (32.0-36.0) Red Cell Distribution Width 16.6 % (11.6-17.2) Platelet Count 182 TH/MM3 (150-450) Mean Platelet Volume 10.7 FL (7.0-11.0) Neutrophils (%) (Auto) 83.1 % (16.0-70.0) Lymphocytes (%) (Auto) 7.6 % (9.0-44.0) Monocytes (%) (Auto) 7.3 % (0.0-8.0) Eosinophils (%) (Auto) 1.5 % (0.0-4.0) Basophils (%) (Auto) 0.5 % (0.0-2.0) Neutrophils # (Auto) 17.5 TH/MM3 (1.8-7.7) Lymphocytes # (Auto) 1.6 TH/MM3 (1.0-4.8) Monocytes # (Auto) 1.5 TH/MM3 (0-0.9) Eosinophils # (Auto) 0.3 TH/MM3 (0-0.4) Basophils # (Auto) 0.1 TH/MM3 (0-0.2) CBC Comment AUTO DIFF Differential Total Cells 100 Counted Neutrophils % (Manual) 79 % (16-70) Band Neutrophils % 3 % (0-6) Lymphocytes % 3 % (9-44) Monocytes % 13 % (0-8) Eosinophils % 1 % (0-4) Neutrophils # (Manual) 17.4 TH/MM3 (1.8-7.7) Myelocytes 1 % (0-0) Differential Comment FINAL DIFF MANUAL Platelet Estimate NORMAL (NORMAL) Platelet Morphology Comment NORMAL (NORMAL) Red Cell Morphology Comment NORMAL (NORMAL) Sodium Level 145 MEQ/L (136-145) Potassium Level 3.6 MEQ/L (3.5-5.1) Chloride Level 115 MEQ/L (98-107) Carbon Dioxide Level 16.7 MEQ/L (21.0-32.0) Anion Gap 13 MEQ/L (5-15) Blood Urea Nitrogen 74 MG/DL (7-18) Creatinine 2.21 MG/DL (0.60-1.30) Estimat Glomerular Filtration 31 ML/MIN (>89) Rate Random Glucose 206 MG/DL (74-106) Calcium Level 8.1 MG/DL (8.5-10.1) Phosphorus Level 2.0 MG/DL (2.5-4.9) Magnesium Level 2.0 MG/DL (1.5-2.5) Total Bilirubin 1.3 MG/DL (0.2-1.0) Aspartate Amino Transf 34 U/L (15-37) (AST/SGOT) Alanine Aminotransferase 32 U/L (12-78) (ALT/SGPT) Alkaline Phosphatase 268 U/L (45-117) Total Protein 4.6 GM/DL (6.4-8.2) Albumin 1.0 GM/DL (3.4-5.0) Result Diagram: 01/15/1616 01/15/1616 Microbiology Microbiology Date/Time Procedure Status Source Growth 01/13/16 14:40 Gram Stain - Final Complete Sputum Endotracheal 01/13/16 14:40 Sputum Culture - Final Complete Sputum Endotracheal HEAVY GROWTH NORMAL RESPIRATORY DORI 01/13/16 14:45 Urine Culture - Final Complete Urine Catheterized Urine NO GROWTH IN 48 HOURS. Procedures 12/02/15: Intubated 12/02/15: NG tube placed 12/02/15: Right subclavian central line placed 12/14/15: Left IJ central line placement BEV PEG tube Ileostomy 12/28/15: Tracheostomy 12/30/15: Right subclavian central venous line placed 01/05/16: Right axillary arterial line placement 01/05/16: Right IJ central line placement 01/05/16: Bronchoscopy Patient/Family Conference Issues Discussed: * Palliative care role, purpose, approach * Additional medical, psychosocial, and spiritual history * Patients general health, functional status, and cognitive changes in the months leading up to the current hospitalization * Patient/family understanding of the current medical problems * Patient/family understanding of prognosis * Patients goals of care as best understood from advance directives and/or conversations and/or values * Current medical treatment options and benefits/burdens of those options * Likely scenarios comparing ongoing aggressive care with a transition to comfort measures only * Questions answered to the best of my ability * Palliative care contact information provided Assessment and Plan Pertinent Non-Medical Issues Psychosocial: Spiritual: Legal: Ethical issues impacting care: Important Contacts Clemencia Smith, spouse: [phone] Kezia Starks, daughter: [phone] . . Thank you for the opportunity to participate in the care of Mr. Smith. Leah Pop Jan 15, 2016 15:49
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
[2016-01-15] MEDS: VASOPRESSIN INJ 40 UNITS in DEXTROSE 5% IN WATER 100ML INJ 98 ML IV SCH ×2 (22:54)
[2016-01-16] VITALS (16 sets, daily range): BP systolic 113–170; BP diastolic 75–96; PULSE 66–128; RESP 12–28; TEMP 97.6–99.7; O2SAT 93–100
[2016-01-16] MEDS: ACETAMINOPHEN 650 MG/20.3 ML UDC PO SCH ×4 (00:34→18:23)
[2016-01-16] MEDS: oxyCODONE HCL ORAL CONC 20 MG/ML SYRINGE PO SCH ×6 (00:34→21:55)
--- NOTE | 2016-01-16 03:41 | RADRPT ---
EXAM DATE/TIME: 01/16/2016 03:01 [facility] COMPARISON: CHEST SINGLE AP, January 12, 2016, 6:56. INDICATIONS : Short o breath MEDICAL HISTORY : Respiratory failure SURGICAL HISTORY : ENCOUNTER: Subsequent ACUITY: 4 - 6 days PAIN SCORE: Non-responsive. LOCATION: Bilateral chest FINDINGS: Lines and tubes are present not significantly changed. Large left pleural effusion is present with le ft lung base consolidation and/or compressive collapse. CONCLUSION: No appreciable change. Freddy Connor MD on January 16, 2016 at 3:39 Board Certified Radiologist. This report was verified electronically.
[2016-01-16] MEDS: metroNIDAZOLE 500 MG INJ 100 ML IV SCH ×3 (04:47→20:23)
[2016-01-16 05:31] LABS: AUTOMATED NEUTROPHIL # 15.4 TH/MM3 (1.8-7.7); BASOPHIL % 0.2 % (0.0-2.0); EOSINOPHIL # 0.4 TH/MM3 (0-0.4); EOSINOPHIL % 1.9 % (0.0-4.0); HEMATOCRIT 28.7 % (39.0-51.0); LYMPH % 8.6 % (9.0-44.0); LYMPHOCYTE # 1.7 TH/MM3 (1.0-4.8); MEAN CELL VOLUME 91.6 FL (80.0-100.0); MEAN CORPUSCULAR HEMOGLOBIN 29.4 PG (27.0-34.0); MEAN CORPUSCULAR HGB CONC 32.1 % (32.0-36.0); MONO % 11.2 % (0.0-8.0); NEUT % 78.1 % (16.0-70.0); PLATELET COUNT 181 TH/MM3 (150-450); RED BLOOD COUNT 3.14 MIL/MM3 (4.50-5.90); RED CELL DISTRIBUTION WIDTH 17.6 % (11.6-17.2); WHITE BLOOD COUNT 19.7 TH/MM3 (4.0-11.0)
[2016-01-16 05:49] LABS: ALT (GPT) 29 U/L (12-78); ANION GAP 13 MEQ/L (5-15); AST (GOT) 33 U/L (15-37); BICARBONATE 16.8 MEQ/L (21.0-32.0); BLOOD UREA NITROGEN 82 MG/DL (7-18); CHLORIDE 116 MEQ/L (98-107); GLOMERULAR FILTRATION RATE 30 ML/MIN (>89); POTASSIUM 3.6 MEQ/L (3.5-5.1); SODIUM (NA) 146 MEQ/L (136-145)
[2016-01-16 05:50] LABS: ALKALINE PHOSPHATASE 317 U/L (45-117); TOTAL BILIRUBIN ADULT 1.9 MG/DL (0.2-1.0)
[2016-01-16] MEDS: INSULIN ASPART SUPPLEMENTAL SCALE SQ SCH ×4 (06:00→18:00)
[2016-01-16] MEDS ORDERED: PHARMACY ORDERED LAB XX ONE (06:00)
[2016-01-16 06:06] LABS: HEMO FLAGS AUTO DIFF
[2016-01-16] MEDS: METOPROLOL TARTRATE 5 MG/5 ML VIAL IV PUSH SCH ×3 (06:31→21:55)
[2016-01-16] MEDS: CEFEPIME INJ 2,000 MG in SODIUM CHLORIDE 0.9% INJ 100 ML IV SCH (06:34)
[2016-01-16 08:41] LABS: BANDS 4 % (0-6); EOSINOPHILS 2 % (0-4); METAMYELOCYTES 3 % (0-1); MYELOCYTES 2 % (0-0); NEUTROPHIL # MANUAL DIFF 15.8 TH/MM3 (1.8-7.7); POLYS (SEG NEUTROPHILS) 71 % (16-70); WBC DIFF SAMPLE 100
[2016-01-16 08:42] LABS: PLATELET ESTIMATE SMEAR NORMAL (NORMAL); PLATELET MORPHOLOGY ENLARGED (NORMAL); SCAN/DIFF FINAL DIFF MANUAL
--- NOTE | 2016-01-16 09:00 | HHI.CCPN ---
Subjective Remarks/Hospital Course 55-year-old male brought by EMS with altered mental status. He has been confused for 2 days but this morning has been the worst. He has history of chronic opiate medications including methadone and morphine that he takes for pain management and hence they gave him Narcan IV which brought the GCS up to 13. The blood glucose was 74. He has open wounds from his right upper and bilateral lower extremities. He has history of hepatitis C. Last week he was pealing and eating shrimps. Bedside blood sugar was 76 in the ER. He was tachycardic in 1 teens and was intubated in the ED for airway protection. Admitted to ICU with sepsis due to Staph Aureus hand infection and E. Coli bacteriemia. 12/05 Patient remains sedated with Fentanyl and intubated. On Levophed 3 mics, Vasopressin 0.03 mics and Bicarb drip. T:99.8 TF placed on hold OGT to LIWS last night - gastric drainage 525ml overnight. 12/06 Patient is sedated with Fentanyl and intubated, On Levophed 3 mics, off vasopressin. Gastric output 400ml in 24 hrs. KUB abdomen yesterday mildly distended colon otherwise non specific KUB. 12/07 Patient is off sedation remains intubated tolerated CPAP for most day yesterday. Afebrile. on no drips, tolerating tube feeds. 12/08 Patient went to OR yesterday for debridement and irrigation of right forearm and wound VAC placement. Given 2U PRBC and 2u PLT yesterday and currently receiving 1of 2 u additional PRBC. Hgb 7.7, PLT 43 this morning. Patient also started on pressors now on Levophed 10 mics. Vasopressin 0.04 mics. On no sedation. 12/09 Patient remains intubated off pressors, Afebrile. Tolerating tube feeds. Afebrile. 12/10 Patient is sedated with Fentanyl and intubated. Awake and follows commands off sedation. Afebrile. 12/11 Patient had ?SVT overnight given Lopressor 2.5mg IV x1, Remains intubated and sedated with Fentanyl. Afebrile. Tolerating TF. 12/12 Patient spoked fever last night with T: 101.5, sedated with Fentanyl and intubated. 12/13 Patient had an episode of desaturation overnight required increase FIO2/ PEE now on ACV with RR 14, TV 550, PEEP: 12, FIO2 60% with sats 100% CT chest performed overnight showed b/l consolidation and small pleural effusion. Had T: 100.0 last night. 12/14 Tolerating PS 15/CPAP 10 FiO2 40% with rSBI 38, weaning. . Awake and alert , following commands. Hypotensive overnight and levophed restarted up to 12 mcg/ min. Nurse has been weaning throughout the day. Suspected adrenal insufficiency as he was on prednisone as outpatient for gout and has not been on stress dose steroids. Given decadron. 12/15 Transfused 1 unit PRBC for Hgb 7.0 yesterday, 1 unit PRBC for Hgb 6.6 today and now Hgb 8.3. Does not clinically have e/o active GI bleeding and wound vac output nonbloody. Stool 1500 output, C diff negative. No abdominal pain. Remains Awake and alert, remained on CPAP 10/5 last night and is now tolerating CPAP 5/5. 12/16: Extubated yesterday tolerating well. Breathing comfortably. Able to follow commands. UO 1.8 L in 24 hours. Na slightly increased to 153. 12/17: Significantly worse this AM. WBC up to 28 from 16. Hgb 5.2 from 7.9. tachycardic. pale this AM. states he feels tired. Continues on BiPAP. Plan for debridement of his arms today. LIJ CVL does not have any signs of overt infection. 12/18: Blood cell count continues to rise today to 30 from 28. Required 1 unit of blood for hemoglobin of 6.6 which improved to 7.7 this morning. However, patient remains tachycardic in the 120s and significantly pale. CT abdomen and pelvis ordered and pending. Tachypneic with respiratory rate in the 30s. Only small amount of dark tarry stool yesterday with approximately 300 cc of stool output. C. difficile toxin negative 3. After discussion with infectious disease, restart vancomycin, cefepime, Flagyl, micafungin. Horn cultures are pending. Per discussion with GI, will not scope as endoscopy is high risk given his tenuous respiratory status this point. Slightly worse hypernatremia as well as worsening acute kidney injury this morning. 12/19: POD 1 s/p ex-lap, washout for perforated ascending colon with extended right hemicolectomy, primary ileocolic anastamosis, open abdomen, septic shock, acute hypoxic and hypercarbic respiratory failure. Significantly critically ill overnight: required 6L ivf resuscitation, 1 unit prbc, norepinephrine, vasopressin, stress dose hydrocortisone. This morning, remains on high-dose vasopressors. still has large volume ivf requirement. Significant SIRS response. Vent requirements increasing with all this volume resuscitation, PEEP up to 10. He remains critically ill, and although I do believe we have surgical source control, I anticipate he will continue to clinically decline before he starts to make improvements. 12/20: Off pressors. follows commands on sedation holiday. +11L over last 3 days during acute illness, +22L since admission. We are going to have to get some of this volume back before we are able to close him given his severe anasarca. 12/21: Taken back to the OR yesterday afternoon for washout and completion colectomy. Postoperatively was significantly under resuscitated as well as had ongoing active oozing. Patient was coagulopathy. The patient was in distributive and hemorrhagic shock. The patient was given multiple units of blood products overnight. Patient was thrombocytopenic, hypofibrinogenemic, coagulopathic. Given significant volume of blood product resuscitation: 24h blood products: 13 prbc 8 ffp 2 plt 1 10-pack cryo This morning continues to have significant amount of bright red output out of his BEV and wound VAC, approximately 500 cc an hour out of his wound VAC, and approximately 75 an mils every 10 minutes out of a BEV. I discussed with surgery and we will correct his coagulopathy and plan to go back to the OR for exploration early this afternoon. 12/22: Clinically starting to improve hemodynamically. off vasopressors. Net+ 26L. CVP rising to 14. UOP adequate. Hgb 7 this AM. 12/23 Seen postop. Hypertensive, BP improved with additional pain medicine. Remains net positive but urine output excellent 3L in 24 hours. Remains on Lasix gtt. went to OR today status post wound VAC change and partial closure 12/24: Fascia was closed yesterday. Wound Vac in place. Remains sedated. -2L negative balance, but with increasing BUN/creat. Discontinue Bumex infusion, start scheduled Bumex 2 mg IV every 12 with IV albumin. 12/25: Overnight became hypotensive requiring Levophed to be restarted. Hemoglobin dropped to 4.1. Noted to have bloody drainage from G-tube and dorsal ileostomy with black stool output 12/26: s/p EGD yesterday-2 gastric ulcers bleeding, stomach a significant part had decreased discoloration indicating probable ischemia. s/p epi injection and cauterization. Continues to have coffee ground G tube output, black tarry Ileostomy output. Hemoglobin down to 6.4 getting 2 units of PRBC. GI recent recommending intervention radiology consult. 12/27: For trach today. Meds ordered. Hgb decline consistent with recent transfusions and senescent cells. 12/28: Trach clean, dry. Start SBTs. Check prealbumin. Continue TPN. 12/29: Looks in direction of voice. I have not seen more purposeful reactions. Line > 12 days old, replace today. Prealbumin 20 - good response to TPN. 12/30: Remains vented, encephalopathic, puss like drainage from left hand, WBC increased 01/01: no significant changes. continues to remain critically ill with minimal improvements over the last week. abdomen closed. still total body volume overloaded. 01/02: more awake today than yesterday. continues to be critically ill with minimal improvements overall. need to look towards placement. -900 yesterday. 01/03: up in chair yesterday. tolerated short run of SBT 15/5/40%. net euvolemic. wbc downtrending. 01/04: wbc slightly uptrended 33 from 30, more acidotic on BMP (14 from 20). Also spiking fevers to 102.3 despite tylenol. continues on broad spectrum abx. yesterday's cxr had what may be a new LLL infiltrate. today, though, he is following commands and more awake and alert. 01/05: LLL pna clinically and based on bronch. CT c/a/p done last night without any significant intra-abdominal change. small left pleural effusion which appears simple in nature, and LLL consolidation. ID broadened abx. today , wbc downtrending. culture data pending. Hgb 7 this AM. 01/06: Underwent exploratory laparotomy last night with findings of bleeding gastric ulcer which was oversewn by Dr. Verdin abdomen left open with wound VAC in place. Received 3 units PRBCs overnight. Remains on Wesley-Synephrine drip this morning for hypotension. Remains sedated, on mechanical ventilation. 01/07: Remains sedated, on mechanical ventilation. For abdominal incision site closure today. Significant positive fluid balance over the last 2 days. Off pressors currently. Lasix to mobilize fluid. 01/08: Remains sedated, on mechanical ventilation via tracheostomy. Underwent abdominal incision site closure this morning. Remains off pressors. Anasarca noted. Blood cultures from 01/04 growing Nava parapsilosis. 01/09: Drowsy/sedated, arousable, on mechanical ventilation via tracheostomy. TPN started yesterday. To be started on J-tube feeds per discussion with surgery 01/10: Sedated, arousable, on mechanical ventilation via tracheostomy. Remains on TPN. J-tube feeds being started today. 01/11: Was on T piece yesterday and rested on C Pap overnight. On TPN. Advanced J-tube feeds to 20 cc an hour today. Attempt T piece as tolerated. 01/12: Awake, tracks with his eyes. On C Pap overnight. Tolerated T piece during daytime yesterday. 01/13: Awake and alert. Was on T piece all day yesterday and was placed back on C Pap at 1:45 AM this morning. Does not appear to be in any acute distress. Tolerating J-tube feeds at 20 cc per hour. 01/14: Drowsy, easily arousable. Was on T piece all day yesterday and rested on C Pap at night. Tolerating J-tube feeds at 40 cc an hour with goal of 60 cc per hour. On TPN which will be discontinued after current bag. BEV drain with cloudy drainage. Subjective: 01/15 Was placed back on ACV yesterday around 9 am due to tachypnea and remained on ACV overnight. Now on CPAP 11/20 and tolerating. BEV in lower abdomen had purulent output yesterday but RN states looks better today. Tolerating tube feeds, stool in ostomy. Off TPN. Objective Vital Signs Date Time Temp Pulse Resp B/P Pulse Ox O2 Delivery O2 Flow Rate FiO2 01/16/16 07:31 30 01/16/16 07:31 100 01/16/16 06:00 107 01/16/16 04:00 98.8 28 137/84 01/13/16 20:47 T-piece Intake and Output 01/15/16 01/15/16 01/16/16 08:00 16:00 00:00 Intake Total 577 ml 928 ml 1350 ml Output Total 1010 ml 1080 ml 985 ml Balance -433 ml -152 ml 365 ml Result Diagram: 01/16/16 0500 01/16/16 0500 Other Results Microbiology Date/Time Procedure Status Source Growth 01/13/16 14:40 Gram Stain - Final Complete Sputum Endotracheal 01/13/16 14:40 Sputum Culture - Final Complete Sputum Endotracheal HEAVY GROWTH NORMAL RESPIRATORY DORI 01/13/16 14:45 Urine Culture - Final Complete Urine Catheterized Urine NO GROWTH IN 48 HOURS. Imaging Last 48 hours Impressions Chest X-Ray 01/07/16 0000 Signed Impressions: Service Date/Time: Thursday, January 07, 2016 04:23 - CONCLUSION: Worsening consolidation or atelectasis at the left mid and lower lung. Some degree of left effusion may also be contributing to this. Arnaldo Reyes MD Chest X-Ray 01/06/16 0000 Signed Impressions: Service Date/Time: Wednesday, January 06, 2016 19:46 - CONCLUSION: 1. Basilar airspace disease improved from January 04. Tracheostomy and right central line in satisfactory position. Nomi Falcon MD Abdomen/Pelvis CT 01/06/16 0000 Signed Impressions: Service Date/Time: Wednesday, January 06, 2016 22:07 - CONCLUSION: 1. Over the last day there is development of a large mass in the left upper quadrant measuring up to 18 x 13 cm which appears to be associated with the stomach. The mass is characterized by somewhat concentric areas of decreased and increased attenuation with multiple locules of air. Primary differential diagnosis is hemorrhage into the gastric wall with gastric pneumatosis and possibly gastric ischemia. Gastrostomy is again noted anteriorly. 2. Remainder the exam is relatively stable with drainage tube left upper quadrant, splenectomy, bilateral effusions, feeding jejunostomy and drain within the pelvis. There is also diffuse anasarca and nonobstructing renal calculi. Nomi Falcon MD Last Impressions Chest X-Ray 12/17/15 0600 Signed Impressions: Service Date/Time: Thursday, December 17, 2015 03:25 - CONCLUSION: Persistent left lower lobe consolidation. Osmar Alegria MD Chest CT 12/14/15 0000 Signed Impressions: Service Date/Time: Monday, December 14, 2015 06:12 - CONCLUSION: 1. Cardiomegaly with bilateral consolidation, likely CHF. Pneumonia cannot be excluded. 2. Small right pleural effusion. Wojciech Lockhart MD Abdomen X-Ray 12/06/15 0000 Signed Impressions: Service Date/Time: November 09:53 - CONCLUSION: Nonspecific KUB. Air is seen within a mildly distended colon but contrast is clearly seen in the rectum. Arnaldo Reyes MD Abdomen/Pelvis CT 12/04/15 0000 Signed Impressions: Service Date/Time: Friday, December 04, 2015 16:24 - CONCLUSION: 1. Mildly distended small bowel in the mid and lower abdomen. Contrast is clearly seen extending into the distal small bowel and ascending colon so a complete obstruction is not seen. A transition point is not seen. This pattern likely represents an ileus versus a partial obstruction. 2. Multiple nonobstructing renal stones. 3. Abnormal appearance of the spleen which appears to represent a splenule. It could be correlated if the patient has had either primary splenic removal or splenic injury and this is what is either left of the spleen or a developing splenule. This is likely of no significance. 4. Mild ascites. 5. Increased density within the gallbladder representing either tumefactive sludge or noncalcified stones. 6. Mild bilateral pleural effusions with prominent areas of lower lobe atelectasis or consolidation at the bases bilaterally. 7. Subacute to chronic bilateral rib fractures and multiple compression fractures in the lower thoracic and lumbar spine as described above. The patient does have a prior CT examination from 08/26/2014. All the compression deformities described above are new when compared to that scan. Arnaldo Reyes MD Head CT 12/02/15 1013 Signed Impressions: Service Date/Time: Wednesday, December 02, 2015 11:00 - CONCLUSION: 1. No intracranial abnormality is seen. 2. Air-fluid level in the right maxillary sinus. Arnaldo Reyes MD Objective Remarks Drips: None Jevity 1.5 @ 60 mL per hour GENERAL: Middle-aged male, lying in bed, trached. Eyes open. HEENT: NCAT. mucous membranes moist. NECK: trach in place. obese neck. difficult to assess JVD. right IJ triple lumen catheter in place, site clean RESPIRATORY: CPAP as tolerated. Breath sounds present bilaterally, diminished left base, scattered rhonchi, no wheezing . CARDIOVASCULAR: S1S2 regular, regular rhythm without murmurs, rubs. GASTROINTESTINAL: J tube in place with tube feeds running. L side BEV drain with serous/sedimentary output. R BEV with some serous drainage around it, output is serous with some sediment. Ostomy with soft stool. Hypoactive bowel sounds. MUSCULOSKELETAL: Generalized anasarca, doughy pitting edema 3+ bilateral feet. Multiple open wounds in the lower extremity. RUE - with wound vac in place with serous output. L upper extremity dressing in place; L forearm. NEURO: Awake, opens eyes spontaneously. 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 - fentanyl patch 75mcg/h q3d for long acting pain control. - liquid tylenol 650mg per tube q6h. - Dilaudid 2mg iv q4h prn for breakthrough pain. - oxycodone 20mg per tube q4h scheduled. Respiratory Acute respiratory failure-extubated 12/16/15, reintubated for surgery 12/18 Acute hypoxic and hypercarbic respiratory failure Acute healthcare associated pneumonia- resolved NIGEL on home CPAP - Tracheostomy 12/27 - Vent bundle. Head of bed at 30 degrees. Nebs q6h and q2h prn. - on C Pap/pressure support since 01/09, T piece trials since 01/10. On ACV since 9 am and onward 01/14. Now on CPAP this morning. --CXR 01/15 - L pleural effusion. Will perform bedside u/s and consider thoracentesis. CV Hemorrhagic shock- resolved Septic Shock- resolved Volume overload - keep map > 65 mmHg. - Cortisol level 14 on 12/14 - Prednisone held. Decreased hydrocortisone to 50mg [id number] on 01/10. Stopped hydrocortisone on 01/12 and started prednisone 10 mg daily 01/13 - Echo 12/07 EF 65-70%, grade I diastolic dysfunction -On lasix to 40mg IV bid. Sodium up to 146, will continue lasix as he appears still overloaded but monitor. -Metoprolol 2.5 mg IV every 8 hours Renal: DEIRDRE Hypernatremia Hypophosphatemia - Strict intake output, monitor and replete electrolytes, follow BUN/creatinine. - On diuretics to mobilize fluid. -Kphos 500q6 x 4 doses. Check phos and BMP in am. Mag is normal. -KCL 40 MEQ per tube daily FEN/GI Acute GIB, hemorrhagic shock Perforated right colon with colitis s/p ex-lap, extended right hemicolectomy with primary ileocolic anastamosis, washout, open abdomen (12/18) s/p Elap 01/05 for bleeding gastric ulcer Acute protein calorie malnutrition- severe Hypokalemia Total body volume overload Intravascular hypervolemia - Protonix 40mg IV BID - EGD 12/26/15 showed 2 large gastric ulcers with active bleeding status post epinephrine infusion and cauterization - OR on 12/24 with Removal of VAC, washout, pancreatic drain and pelvic drain placement, gastrostomy, feeding jejunostomy and closure of abdomen with application of VAC device in the subcutaneous tissue. - off TPN 01/01. TPN resumed 01/08 @ 42cc/hr with lipids - to be stopped on after current bag. - on full TF at goal - held 01/05 for bleeding gastric ulcer s/p Elap. Ordered J tube trophic feeds to be resumed 01/10(d/w surgery on 01/09). Tolerating J tube feeds with Jevity 1.5 at 60cc/hr (per nutrition recs). Off TPN as of . . Heme: Acute Anemia secondary to acute blood loss Thrombocytopenia Hypofibrinogenemia secondary to consumption and acute blood loss Coagulopathy secondary to consumption and acute blood loss --monitor CBC --Hep PLT ab negative on 12/03 - Ferrous Sulfate bid - transfused 3 units PRBCs 01/05- ID Severe sepsis Necrotizing Fascitis - MSSA on wound culture 12/07. Ecoli bacteremia 12/01 MSSA bacteremia 12/05. Cleared on f/u blood culture 12/07, 12/12. Candidemia (blood culture 01/04 with Nava parapsilosis) Sepsis of Intra-abdominal origin. C. difficile toxic megacolon --Debridement 12/01 p.m at bedside by Dr Pedro and Dr. Hartmann --R hand, forearm and olecranon bursa I and D and Wound vac 12/07 Dr Chavez. -- ABX per ID: IV cefepime 12/17 #30,flagyl IV 12/17 #30, Fluconazole 01/09#7. Micafungin stopped per ID 01/08. Amphotericin B started by ID on 01/08 and stopped 01/09. Fluconazole started 01/09 per ID. On IV vanc per ID. Nava parapsilosis in blood culture from 01/04 most likely from an intra- abdominal source(central line was changed on 01/04). BEV drain with cloudy drainage. Continued intra-abdominal infection on Abx per ID. General surgery following. Last set of blood cultures have been negative. Plan Repeat CT Abd/pelvis if clinically worsening or sepsis worsens. Opthalm consult requested by Dr. Becerra in v/o candidemia to eval for endopthalmitis. Seen by Dr. Wu 01/13 and no evidence of endogenous endophthalmitis Wound care following for leg wounds. --12/17 blood cultures: NGTD 12/17 central line culture: NGTD 12/17 urine cultures: NGTD 12/17 sputum cultures: NGTD C. difficile toxin 12/17: Negative (3rd negative toxin screen) -01/04 Blood culture with nava parapsilosis 01/04: horn culture, bronch with BAL, 01/04: CT chest/abd/pelvis without contrast: LLL consolidation, otherwise unchanged. 01/04: clinically LLL VAP. 01/08 Blood cultures: no growth 01/09 blood culture peripheral - NGTD 01/12 sputum cutlure - neg 01/12 - urine culture NGTD. --ID Dr. Becerra Endocrine: Hyperglycemia of Critical Illness Diabetes - off Insulin drip - Levemir BID on hold. - On low-dose insulin sliding scale with bedside glucose every 6 hours. Glucose at target. - Prednisone 10mg po daily. slow taper started however pt back on pressors after Elap on 01/06 so started hydrocortisone 50 mg IV every 8 hourly on 01/06, decreased to [id number] on 01/11. Stopped Hydrocortisone 01/12 and starting prednisone 10mg daily on 01/13 Prophylaxis: GI Prophylaxis: -- Protonix IV BID DVT Prophylaxis: - SCDs Resume subcutaneous heparin when okay with general surgery. On Hold since . Lines: -- Sandoval -- right IJ TLC 01/04 #12. Central access no longer needed. Placed peripheral IV and discontinue central venous line. Reconsult PT/OT. Critical Care: The total critical care time was 35 minutes. Time to perform other separately billable procedures was not included in the critical care time. Problem Qualifiers (1) Respiratory failure: Qualified Code: J96.00 - Acute respiratory failure, unspecified whether with hypoxia or hypercapnia (2) Altered mental status: Qualified Code: R41.0 - Delirium (3) Sepsis: Qualified Code: A41.9 - Sepsis, due to unspecified organism Isabela Gonzalez MD Jan 16, 2016 09:00
[2016-01-16] MEDS: FUROSEMIDE 20 MG/2 ML VIAL IV PUSH SCH ×2 (10:02→18:23)
[2016-01-16] MEDS: PANTOPRAZOLE SODIUM 40 MG VIAL IV PUSH SCH ×2 (10:02→21:55)
[2016-01-16] MEDS: POTASSIUM CL 40 MEQ/30 ML LIQ UDC J-TUBE SCH (10:02)
[2016-01-16] MEDS: predniSONE 10 MG TAB NG SCH (10:03)
[2016-01-16] MEDS: POVIDONE IODINE 10% OINT 30 GM TUBE TOPICAL SCH (10:04)
[2016-01-16] MEDS: NEOMYCIN/POLYMYXIN/BACITRACIN OINT 15 GM TUBE TOPICAL SCH ×2 (10:04→21:57)
[2016-01-16] MEDS: CHLORHEXIDINE 0.12% (ORAL KIT) 15 ML CUP MT SCH ×2 (10:05→21:56)
[2016-01-16] MEDS: POTASSIUM PHOSPHATE MONOBASIC 500 MG TAB TUBE SCH ×3 (10:10→21:54)
--- NOTE | 2016-01-16 10:43 | PD.CONS ---
Consult Service Palliative Care Consult Requested By Dr. Clark . Primary Care Physician Ramone Villa MD Reason for Consultation a. To assist with evaluation and management of symptoms including: pain, encephalopathy, malnutrition b. To assist medical decision maker(s) with: better understanding of current medical conditions; weighing benefits/burdens of medical treatment options; making medical treatment decisions. . HPI History of Present Illness Mr. Holcomb is a 55-year-old male who presented to [facility] on 12/02/15 for evaluation of altered mental status. The patient's family reported the patient had progressively worsening &confusion over a 2 day period. The patient patient has a history of chronic pain which is managed with methadone and morphine. Upon arrival to the ED the patient GCS was 12. Narcan was administered which brought the patient's GCS of 13. The patient was lethargic and speech was repetitive. His appearance was disheveled. The patient had open wounds on his right upper and bilateral lower extremities. He was tachycardic and hypothermic , rectal temperature of 97.5. Blood glucose was 74. The patient was emergently intubated in the ED for airway protection. PMH is significant for Hep C, NIGEL, gout, RA, HTN, chronic pain, and migraines. Additional diagnostic findings in the ED: * Vital signs: Pulse 110, respirations 14, BP 114/56, oxygen saturation 93% on 2 L via nasal cannula, rectal temperature 97.4 * WBC: 13.6, hemoglobin 8.9, hematocrit 26.8, platelets 214, neutrophils 98.0% * Sodium: 139, potassium 4.7, chloride 105, carbon dioxide 16.6, glucose 73, calcium 7.5 * Lactic acid: 1.9 * BUN: 119, creatinine 6.05, GFR 10 * Total bilirubin: 1.4, AST 114, ALT 16, alkaline phosphatase 268 * Ammonia: 71 * Total creatine kinase: 988 * CK-MB: 33.7 * Troponin: 0.07 * Total protein: 5.4, albumin 1.3 * PT: 11.7, INR 1.1, APTT 35.9 * Urinalysis: Showing protein, occult blood, leukocyte esterase, urine RBC, urine WBC, bacteria and mucus. No culture indicated. * EKG: Normal sinus rhythm, tachycardia, normal axis, nonspecific ST-T wave changes. Heart rate of 114 bpm. * Chest x-ray: Mild cardiomegaly, suspected mild atelectasis at the lung bases, minimal prominence to the interstitium which could represent some pulmonary venous hypertension * Head CT: No intracranial abnormality seen, air-fluid level in the right maxillary sinus * Blood cultures: Growing Escherichia coli * Wound culturehand: Going staph aureus * Wound culturearm: Growing staph aureus Admitted to ICU with sepsis due to Staph Aureus hand infection and E. Coli bacteriemia. Infectious disease was consulted. Surgery was also consulted to assessed a necrotizing skin infection on the right upper extremity. Wound was debrided on 12/02/15. Patient was again taken to the OR on 12/09/15 for debridement and irrigation of right forearm and wound VAC placement. Patient has had persistent anemia/thrombocytopenia requiring multiple transfusions. Patient remained intubated and sedated on mechanical ventilator, intermittently requiring pressor support. On 12/14/15, the patient had an episode of desaturation overnight requiring increased FiO2/PEEP support. He also developed a fever and some hypotension, the Levophed was restarted and weaned throughout the following day. A CT of the chest showed bilateral consolidation and small pleural effusion. Adrenal insufficiency was suspected, patient was on prednisone at for gout and chan not been on stress dose steroids. Decadron was administered. The patient was extubated on 12/17/15. On 12/18/15 , the GI was consulted for evaluation of anemia and intermittent melena. Patient requiring frequent transfusions- S/P 8 units PRBC. Recommendations were made for an EGD/colonoscopy when medically stable to rule out pseudomembranes and ischemic colitis 12/18/15: Patient tolerating BiPAP. Patient reports increased weak and fatigue. WBC increased from 28 to 30. Plan for debridement of his arms today. Left IJ central line does not have any signs of overt infection. 12/19/15; The patient was significantly worse the following morning . WBC up to 30 from 28. He was transfused with 1 unit of PRBCs for hemoglobin of 6.6 which improved to 7.7 this morning. Patient remained tachycardic and tachypneic status post transfusion. Having small amount of dark tarry stool yesterday, approximately 300ml of stool output. Stool C. difficile negative 3. After collaborating with ID, the patient was restarted on Vancomycin, Cefepime, Flagyl and Micafungin. Rey cultures are pending. CT abdomen/pelvis consistent with perforated viscus, possibly stomach or colon. Patient was taken to the OR for ex -lap, washout for perforated ascending colon with extended right hemicolectomy, primary ileocolic anastomosis. 12/21/15: Patient returned the OR for washout and completion colectomy. Postoperatively had ongoing active oozing. Patient was coagulopathy, in distributive and hemorrhagic shock. Patient was thrombocytopenic, hypofibrinogenemic, coagulopathic. Given significant volume of blood product resuscitation: 12/22/15: The patient continued to have significant amount of bright red output from his BEV and wound VAC, returning to the oR for exploration. 12/27/15: S/P EGD which showed two bleeding gastric ulcers (which were cauterized), stomach a significant part had decreased discoloration indicating probable ischemia and esophagitis. Patient continues to have coffee ground output from Gtube and black tarry output from ileostomy. Hemoglobin down to 6.4 , transfused with 2 units of PRBC. Patient going to IR for angiogram/ embolization. 12/28/15: Tracheostomy 01/05/16: Bronchoscopy completed, copious amounts of purulent secretions were suctioned from the left lower lobe. Left lower lobe PNA east on bronchoscopy. CT of chest and abdomen/pelvis showed no significant intra-abdominal changes, small left pleural effusion and left lower lobe validation. 01/07/16: Patient underwent exploratory laparotomy with findings of bleeding gastric ulcer which was oversewn by Dr. Verdin. Abdomen was left open with wound VAC in place. Patient received 3 units PRBCs overnight, remains on Wesley- Synephrine drip for hypotension. Patient remains sedated on mechanical ventilation. 01/09/16: Patient underwent abdominal incision site closure this morning. Tolerating TPN Blood cultures from 01/04 growing Jacey parapsilosis. 01/16/16: Patient had been tolerating T-piece during the day and CPAP at night for the past 5 days. He became tachypneic yesterday and was placed back on ACV, tolerating CPAP10/5 today. BEV with purulent drainage just today, appearance has improved today. Tolerating tube feedings, off TPN. Afebrile. WBC trending downward at 19.7 today. H&H remains stable, 9.2/28.7. Resent blood, urine and sputum cultures showing no growth today. Palliative Care was consulted to assist with symptom management and to discuss with the patient/family the benefits and burdens of his current illnesses and the options regarding future care. . Function/Cognitive Trajectory Per family, the patient had no health concerns until he received a transfusion in the early 1980s status post [facility]. He was later diagnosed with chronic hepatitis C and received treatment. Over the past 10 years the patient declined , being managed for chronic pain ( on methadone and MS Contin). He was " somewhat disabled" per his . He would have intermittent exacerbations requiring him to rest and occasionally used a cane or walker when ambulating. Otherwise, Mr. Holcomb remained independent for all ADLs and IADLs prior to this hospitaization. . Review of Systems ROS Limitations: Clinical Condition (Patient unable to participate in ROS. Information obtained through review of medical documentation and report from family.), Altered Mental Status Constitutional: COMPLAINS OF: Fatigue, Fever, Pain (chronic pain on methadone and MS Contin), Generalized weakness Ears, nose, mouth, throat: DENIES: Epistaxis Respiratory: COMPLAINS OF: Shortness of breath Cardiovascular: COMPLAINS OF: Lower Extremity Edema Gastrointestinal: COMPLAINS OF: Black stools, Bloody stools Hematologic/Lymphatics: COMPLAINS OF: Bruising, Prolonged bleed w/ proced, History of transfusions Neurologic: COMPLAINS OF: Localized weakness Psychiatric: COMPLAINS OF: Confusion Past Family Social History Coded Allergies: Compazine (Verified Allergy, Severe, VOMITING, RASH, 08/26/14) SLURRED SPEECH, MIGRAINES Demerol (Verified Allergy, Severe, VOMITING, 08/26/14) Levaquin (Verified Allergy, Severe, 08/26/14) Penicillin (Verified Allergy, Severe, Rash, 08/26/14) Phenergan (Verified Allergy, Severe, VOMITING, 08/26/14) Uncoded Allergies: ANTI-CONVULSIVES (Allergy, Severe, MIGRAINES, SLURRED SPEECH,, 01/23/14) Past Medical History Chronic hepatitis C NIGEL Rheumatoid arthritis Chronic low back pain Migraines Gout HTN CKD GERD Colon polyps . Past Surgical History Back surgery Colonoscopy Hip surgery Left knee surgery Splenectomy Tonsillectomy . Reported Medications Hctz (Hydrochlorothiazide) 25 Mg Tab 25 Mg PO DAILY Ibuprofen 800 Mg Tab 800 Mg PO BID 14 Days Deltasone 5 mg Tab (Prednisone) 5 Mg Tab 5 Mg PO DIRECTED Titrating Dose [Potassium Citrate] 99 Mg PO DAILY Morphine Sulfate Er (Morphine Sulfate) 30 Mg Tab 30 Mg PO TID 14 Days Lisinopril 20 mg (Lisinopril) 20 Mg Tab 20 Mg PO BID Oxygen (O2) (Miscellaneous Medication) Inha 1 L INH HS Allopurinol 300 Mg Tab 600 Mg PO DAILY Methadone Hcl (Methadone HCl) 10 Mg Tab 10 Mg PO BID . Current Medications Medications (Trade) Dose Ordered Sig/Hilton Route Start Time Stop Time Status Last Admin (NS Flush) 2 ml UNSCH PRN IVF 12/02/15 10:15 01/05/16 20:56 Miscellaneous Information 1 Q361D XX 12/02/15 13:45 (Chlorhexidine 2% Cloth) Taper DAILY@04 TOP 12/03/15 04:00 11/28/16 03:59 01/15/16 04:00 (Chlorhexidine 2% Cloth) 3 pack UNSCH PRN TOP 12/02/15 13:45 (Peridex 0.12% Liq) 15 ml BID@08,20 MT 12/06/15 20:00 01/16/16 10:05 (Betadine 10% Oint) 1 applic DAILY TOPICAL 12/12/15 15:00 01/16/16 10:04 Hydromorphone HCl 2 mg 2 mg Q2H PRN IV PUSH 12/16/15 14:00 01/15/16 15:26 (Flagyl 500 Mg Inj) 100 ml @ 100 mls/hr Q8H IV 12/18/15 12:00 01/16/16 04:47 (D50w (Vial) Inj) 25 ml UNSCH PRN IV PUSH 12/30/15 15:30 (NovoLOG SUPPLEMENTAL SCALE) 1 Q6HR SQ 12/30/15 15:30 01/16/16 06:00 (Levemir Inj) 15 units Q12HR SQ 12/31/15 21:00 Hold 01/01/16 08:49 (Roxicodone Intensol Liq) 20 mg Q4H PO 01/03/16 13:00 01/16/16 10:03 (Duragesic 75 Mcg Patch.72 Hr) 1 patch Q3D TD 01/03/16 12:00 01/15/16 12:36 Miscellaneous Information 1 Q3D TD 01/06/16 12:00 01/15/16 12:00 (Tylenol 650 Mg/ 20 ml Liq) 650 mg Q6H PO 01/03/16 11:15 01/16/16 10:04 Neomycin/ Polymyxin/ Bacitracin 1 applic 1 applic Q12HR TOPICAL 01/03/16 21:00 01/16/16 10:04 (Vancomycin Consult Pharmacy) 0 ml @ 0 mls/hr UNSCH OTHER 01/05/16 16:15 (Heparin Inj) 5,000 units Q12HR SQ 01/06/16 10:00 Hold 01/06/16 11:43 Pantoprazole Sodium 40 mg 40 mg Q12HR IV PUSH 01/09/16 10:00 01/16/16 10:02 Fluconazole/ Sodium Chloride 200 ml @ 100 mls/hr Q24H IV 01/10/16 12:00 01/15/16 12:33 (Maxipime Inj/NS Inj) 100 ml @ 200 mls/hr Q24H IV 01/12/16 06:00 01/16/16 06:34 (Lasix Inj) 40 mg BID@09,18 IV PUSH 01/12/16 18:00 01/16/16 10:02 (KCl 40 Meq/30 ml Liq) 40 meq DAILY J-TUBE 01/14/16 09:00 01/16/16 10:02 (Deltasone) 10 mg DAILY NG 01/14/16 09:00 01/16/16 10:03 (Lopressor Inj) 2.5 mg Q8HR IV PUSH 01/15/16 14:00 01/16/16 06:31 (K-Phos) 500 mg Q6H TUBE 01/16/16 10:00 01/17/16 04:01 01/16/16 10:10 (Ferrous Sulfate Liq) 300 mg BID TUBE 01/16/16 21:00 . Family History Father from unknown cancer, also had a history of heart disease. Patient's mother is alive and well, no known medical history per the patient's . . . Substance Use Tobacco: Previous smoker Alcohol: None known Prescription med abuse: None known Illicits: None known . Psychosocial History Patient was born in [facility], moving to [place] at a young age. He has 2 siblings who live locally (Feroz and Janeen). 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 The patient met his current (Clemencia Smith) through mutual friends and they have now been for approximately 20 years. The patient has 1 adult daughter (Kezia) from a previous relationship. She is 30 years old. . Spiritual/Cultural Factors No muslim affiliation . Living Will: Never completed Health Care Surrogate: Never completed Durable Power of Bread Icer: Never completed Health Care Surrogate(s): There is no designated health care surrogate. Per [place] statutes, in the absence of written advanced directives healthcare proxy falls to the patient's , Clemencia Smith. . Documented care wishes: None available , Today's verbally stated goals: Given the patient's clinical condition, he is unable to participate in establishing medical treatment goals. . Family/friends goals: Patient's daughter and state the patient would not want to be kept alive on machines. They understand that should the patient survives this hospitalization, he will require placement at a jail facility for rehabilitation upon discharge. They family is hopeful the patient will eventually return home. . Ethical and Legal Issues None known at this time. . Physical Exam Vital Signs Date Time Temp Pulse Resp B/P Pulse Ox O2 Delivery O2 Flow Rate FiO2 01/16/16 07:31 30 01/16/16 07:31 100 30 01/16/16 06:00 107 01/16/16 04:00 98.8 66 28 137/84 93 01/16/16 04:00 128 01/16/16 04:00 30 01/16/16 03:44 95 30 01/16/16 02:00 109 01/16/16 01:34 12 01/16/16 01:34 12 01/16/16 01:00 100 30 01/16/16 00:00 99.2 105 12 113/75 100 01/16/16 00:00 30 01/16/16 00:00 105 01/15/16 22:00 110 01/15/16 20:00 127 01/15/16 20:00 30 01/15/16 20:00 99.2 127 16 125/74 98 01/15/16 19:53 98 30 01/15/16 17:02 97 35 01/15/16 16:00 98.6 130 24 110/64 97 01/15/16 16:00 35 01/15/16 13:16 95 35 01/15/16 12:00 98.4 128 26 121/78 99 01/15/16 12:00 35 01/15/16 12:00 128 . 01/15/16 01/16/16 18:59 06:59 Intake Total 928 ml 2090 ml Output Total 1080 ml 1950 ml Balance -152 ml 140 ml Intake Oral 0 ml IV Total 483 ml 1030 ml Tube Feeding 445 ml 820 ml Other 240 ml Output Urine Total 650 ml 650 ml Stool Total 75 ml 700 ml Gastric Drainage Total 75 ml 400 ml Drainage Total 280 ml 200 ml . Exam CONSTITUTIONAL/GENERAL: This is a critically ill middle-aged male patient , in no apparent distress. TUBES/LINES/DRAINS: PIV 2, central line, BEV 2, ostomy, trach, Sandoval, wound VAC , NGT SKIN: No jaundice, rashes, or lesions. Ecchymoses on upper extremities. Midline abdominal incision, dressing dry and intact. Wound VAC to right upper extremity. Dressings on left upper extremity and bilateral lower extremities c/ d/i. HEAD: Atraumatic. Normocephalic. EYES: Pupils equal, 2mm, sluggish.+ scleral icterus. No injection or drainage. Fundi not examined. ENT: Unable to assess hearing Nose without bleeding or purulent drainage. NECK: Trachea midline. Supple, nontender. No palpable thyroid enlargement or nodularity. CARDIOVASCULAR: Regular rate and rhythm without murmurs, gallops, or rubs. No JVD. RESPIRATORY/CHEST: Tolerating CPAP 10/5. Breath sounds diminished bilaterally, significantly left base. GASTROINTESTINAL: J tube in place, tolerating tube feedings at 60 mL's per hour. BEV drain x2 with serous/sedimentary output. Soft stool from ostomy. Hypoactive bowel sounds. GENITOURINARY: Without palpable bladder distension. Sandoval catheter in place. MUSCULOSKELETAL: Extremities without clubbing or cyanosis. General anasarca. Bilateral lower extremity edema +3. Midline abdominal incision, dressing dry and intact. Wound VAC to right upper extremity. Dressings on left upper extremity and bilateral lower extremities c/d/i. LYMPHATICS: No palpable cervical or supraclavicular adenopathy. NEUROLOGICAL: Opens eyes spontaneously. Not following commands or answering questions. PSYCHIATRIC: Unable to assess due to patient's current clinical condition. . Diagnostic Tests Laboratory Laboratory Tests Test 01/13/16 01/13/16 01/14/16 01/15/16 14:20 14:45 04:45 06:16 Potassium Level 4.3 MEQ/L 3.1 MEQ/L 3.6 MEQ/L (3.5-5.1) (3.5-5.1) (3.5-5.1) Urine Color YELLOW (YELLW/STRAW) Urine Turbidity CLOUDY (CLEAR) Urine pH 5.5 (5.0-8.5) Urine Specific Polo 1.013 (1.002-1.035) Urine Protein 30 mg/dL (NEG-TRACE) Urine Glucose (UA) TRACE mg/dL (NEG) Urine Ketones NEG mg/dL (NEG) Urine Occult Blood SMALL (NEG) Urine Nitrite NEG (NEG) Urine Bilirubin NEG (NEG) Urine Urobilinogen LESS THAN 2.0 MG/DL (LESS THAN 2.0) Urine Leukocyte Esterase NEG (NEG) Urine RBC 7 /hpf (0-3) Urine WBC 20 /hpf (0-5) Urine WBC Clumps FEW (NONE) Urine Squamous Epithelial 1 /hpf (0-5) Cells Urine Amorphous Sediment RARE Urine Bacteria RARE /hpf (NONE) Urine Mucus FEW /lpf (OCC) Microscopic Urinalysis Comment CATH-CULTURE IND White Blood Count 25.7 TH/MM3 21.0 TH/MM3 (4.0-11.0) (4.0-11.0) Red Blood Count 3.38 MIL/MM3 3.07 MIL/MM3 (4.50-5.90) (4.50-5.90) Hemoglobin 9.9 GM/DL 9.0 GM/DL (13.0-17.0) (13.0-17.0) Hematocrit 30.3 % 27.6 % (39.0-51.0) (39.0-51.0) Mean Corpuscular Volume 89.7 FL 90.1 FL (80.0-100.0) (80.0-100.0) Mean Corpuscular Hemoglobin 29.3 PG 29.4 PG (27.0-34.0) (27.0-34.0) Mean Corpuscular Hemoglobin 32.6 % 32.6 % Concent (32.0-36.0) (32.0-36.0) Red Cell Distribution Width 16.2 % 16.6 % (11.6-17.2) (11.6-17.2) Platelet Count 193 TH/MM3 182 TH/MM3 (150-450) (150-450) Mean Platelet Volume 10.8 FL 10.7 FL (7.0-11.0) (7.0-11.0) Neutrophils (%) (Auto) 86.8 % 83.1 % (16.0-70.0) (16.0-70.0) Lymphocytes (%) (Auto) 6.8 % 7.6 % (9.0-44.0) (9.0-44.0) Monocytes (%) (Auto) 5.4 % (0.0-8.0) 7.3 % (0.0-8.0) Eosinophils (%) (Auto) 0.7 % (0.0-4.0) 1.5 % (0.0-4.0) Basophils (%) (Auto) 0.3 % (0.0-2.0) 0.5 % (0.0-2.0) Neutrophils # (Auto) 22.3 TH/MM3 17.5 TH/MM3 (1.8-7.7) (1.8-7.7) Lymphocytes # (Auto) 1.8 TH/MM3 1.6 TH/MM3 (1.0-4.8) (1.0-4.8) Monocytes # (Auto) 1.4 TH/MM3 1.5 TH/MM3 (0-0.9) (0-0.9) Eosinophils # (Auto) 0.2 TH/MM3 0.3 TH/MM3 (0-0.4) (0-0.4) Basophils # (Auto) 0.1 TH/MM3 0.1 TH/MM3 (0-0.2) (0-0.2) CBC Comment AUTO DIFF AUTO DIFF Differential Total Cells 100 100 Counted Neutrophils % (Manual) 90 % (16-70) 79 % (16-70) Band Neutrophils % 1 % (0-6) 3 % (0-6) Lymphocytes % 6 % (9-44) 3 % (9-44) Monocytes % 1 % (0-8) 13 % (0-8) Neutrophils # (Manual) 23.9 TH/MM3 17.4 TH/MM3 (1.8-7.7) (1.8-7.7) Metamyelocytes 2 % (0-1) Differential Comment FINAL DIFF FINAL DIFF MANUAL MANUAL Platelet Estimate NORMAL NORMAL (NORMAL) (NORMAL) Platelet Morphology Comment NORMAL NORMAL (NORMAL) (NORMAL) Red Cell Morphology Comment NORMAL NORMAL (NORMAL) (NORMAL) Sodium Level 145 MEQ/L 145 MEQ/L (136-145) (136-145) Chloride Level 114 MEQ/L 115 MEQ/L (98-107) (98-107) Carbon Dioxide Level 18.6 MEQ/L 16.7 MEQ/L (21.0-32.0) (21.0-32.0) Anion Gap 12 MEQ/L (5-15) 13 MEQ/L (5-15) Blood Urea Nitrogen 70 MG/DL (7-18) 74 MG/DL (7-18) Creatinine 2.20 MG/DL 2.21 MG/DL (0.60-1.30) (0.60-1.30) Estimat Glomerular Filtration 31 ML/MIN (>89) 31 ML/MIN (>89) Rate Random Glucose 149 MG/DL 206 MG/DL (74-106) (74-106) Calcium Level 8.0 MG/DL 8.1 MG/DL (8.5-10.1) (8.5-10.1) Total Bilirubin 1.6 MG/DL 1.3 MG/DL (0.2-1.0) (0.2-1.0) Aspartate Amino Transf 41 U/L (15-37) 34 U/L (15-37) (AST/SGOT) Alanine Aminotransferase 40 U/L (12-78) 32 U/L (12-78) (ALT/SGPT) Alkaline Phosphatase 233 U/L 268 U/L (45-117) (45-117) Total Protein 4.6 GM/DL 4.6 GM/DL (6.4-8.2) (6.4-8.2) Albumin 1.1 GM/DL 1.0 GM/DL (3.4-5.0) (3.4-5.0) Random Vancomycin Level 26.2 COMMENT Eosinophils % 1 % (0-4) Myelocytes 1 % (0-0) Phosphorus Level 2.0 MG/DL (2.5-4.9) Magnesium Level 2.0 MG/DL (1.5-2.5) Test 01/16/16 05:00 White Blood Count 19.7 TH/MM3 (4.0-11.0) Red Blood Count 3.14 MIL/MM3 (4.50-5.90) Hemoglobin 9.2 GM/DL (13.0-17.0) Hematocrit 28.7 % (39.0-51.0) Mean Corpuscular Volume 91.6 FL (80.0-100.0) Mean Corpuscular Hemoglobin 29.4 PG (27.0-34.0) Mean Corpuscular Hemoglobin 32.1 % Concent (32.0-36.0) Red Cell Distribution Width 17.6 % (11.6-17.2) Platelet Count 181 TH/MM3 (150-450) Mean Platelet Volume 11.0 FL (7.0-11.0) Neutrophils (%) (Auto) 78.1 % (16.0-70.0) Lymphocytes (%) (Auto) 8.6 % (9.0-44.0) Monocytes (%) (Auto) 11.2 % (0.0-8.0) Eosinophils (%) (Auto) 1.9 % (0.0-4.0) Basophils (%) (Auto) 0.2 % (0.0-2.0) Neutrophils # (Auto) 15.4 TH/MM3 (1.8-7.7) Lymphocytes # (Auto) 1.7 TH/MM3 (1.0-4.8) Monocytes # (Auto) 2.2 TH/MM3 (0-0.9) Eosinophils # (Auto) 0.4 TH/MM3 (0-0.4) Basophils # (Auto) 0.0 TH/MM3 (0-0.2) CBC Comment AUTO DIFF Differential Total Cells 100 Counted Neutrophils % (Manual) 71 % (16-70) Band Neutrophils % 4 % (0-6) Lymphocytes % 9 % (9-44) Monocytes % 9 % (0-8) Eosinophils % 2 % (0-4) Neutrophils # (Manual) 15.8 TH/MM3 (1.8-7.7) Metamyelocytes 3 % (0-1) Myelocytes 2 % (0-0) Differential Comment FINAL DIFF MANUAL Platelet Estimate NORMAL (NORMAL) Platelet Morphology Comment ENLARGED (NORMAL) Sodium Level 146 MEQ/L (136-145) Potassium Level 3.6 MEQ/L (3.5-5.1) Chloride Level 116 MEQ/L (98-107) Carbon Dioxide Level 16.8 MEQ/L (21.0-32.0) Anion Gap 13 MEQ/L (5-15) Blood Urea Nitrogen 82 MG/DL (7-18) Creatinine 2.27 MG/DL (0.60-1.30) Estimat Glomerular Filtration 30 ML/MIN (>89) Rate Random Glucose 154 MG/DL (74-106) Calcium Level 8.5 MG/DL (8.5-10.1) Phosphorus Level 1.7 MG/DL (2.5-4.9) Magnesium Level 2.0 MG/DL (1.5-2.5) Total Bilirubin 1.9 MG/DL (0.2-1.0) Aspartate Amino Transf 33 U/L (15-37) (AST/SGOT) Alanine Aminotransferase 29 U/L (12-78) (ALT/SGPT) Alkaline Phosphatase 317 U/L (45-117) Total Protein 4.9 GM/DL (6.4-8.2) Albumin 1.1 GM/DL (3.4-5.0) Random Vancomycin Level 20.1 COMMENT . . Result Diagram: 01/16/16 0500 01/16/16 0500 Microbiology Microbiology Date/Time Procedure Status Source Growth 01/13/16 14:40 Gram Stain - Final Complete Sputum Endotracheal 01/13/16 14:40 Sputum Culture - Final Complete Sputum Endotracheal HEAVY GROWTH NORMAL RESPIRATORY DORI 01/13/16 14:45 Urine Culture - Final Complete Urine Catheterized Urine NO GROWTH IN 48 HOURS. . . Imaging Last Impressions Chest X-Ray 01/16/16 0600 Signed Impressions: Service Date/Time: Saturday, January 16, 2016 03:01 - CONCLUSION: No appreciable change. Freddy Connor MD Abdomen/Pelvis CT 01/06/16 0000 Signed Impressions: Service Date/Time: Wednesday, January 06, 2016 22:07 - CONCLUSION: 1. Over the last day there is development of a large mass in the left upper quadrant measuring up to 18 x 13 cm which appears to be associated with the stomach. The mass is characterized by somewhat concentric areas of decreased and increased attenuation with multiple locules of air. Primary differential diagnosis is hemorrhage into the gastric wall with gastric pneumatosis and possibly gastric ischemia. Gastrostomy is again noted anteriorly. 2. Remainder the exam is relatively stable with drainage tube left upper quadrant, splenectomy, bilateral effusions, feeding jejunostomy and drain within the pelvis. There is also diffuse anasarca and nonobstructing renal calculi. Nomi Falcon MD Chest CT 01/05/16 0000 Signed Impressions: Service Date/Time: Tuesday, January 05, 2016 23:15 - CONCLUSION: 1. Persistent left lower lobar consolidation. Improved consolidative infiltrates in the right lower lung. 2. Interval increase size bilateral pleural effusions , left greater than right. Osmar Alegria MD Celiac/Hepatic Arteriogram 12/27/15 0000 Signed Impressions: Service Date/Time: December 13:41 - CONCLUSION: 1. No active GI bleed identified. Robert Mckinney MD Abdomen X-Ray 12/18/15 0000 Signed Impressions: Service Date/Time: Friday, December 18, 2015 16:05 - CONCLUSION: Feeding tube tip is at the gastric antrum. Arnaldo Elias MD Head CT 12/02/15 1013 Signed Impressions: Service Date/Time: Wednesday, December 02, 2015 11:00 - CONCLUSION: 1. No intracranial abnormality is seen. 2. Air-fluid level in the right maxillary sinus. Arnaldo Reyes MD . Procedures 12/02/15: Intubated 12/02/15: NG tube placed 12/02/15: Right subclavian central line placed 12/14/15: Left IJ central line placement BEV PEG tube Ileostomy 12/28/15: Tracheostomy 12/30/15: Right subclavian central venous line placed 01/05/16: Right axillary arterial line placement 01/05/16: Right IJ central line placement 01/05/16: Bronchoscopy . . Patient/Family Conference Present at Family Conference: Met with patient's and daughter (Kaylee) at bedside and privately to discuss the patient's complicated hospital course and current clinical condition. Recent diagnostics were reviewed. Medical treatment goals were clarified, goals remain aggressive. CODE STATUS remains FULL CODE, order placed in computer. . Issues Discussed: * Palliative care role, purpose, approach * Additional medical, psychosocial, and spiritual history * Patients general health, functional status, and cognitive changes in the months leading up to the current hospitalization * Patient/family understanding of the current medical problems * Patient/family understanding of prognosis * Patients goals of care as best understood from advance directives and/or conversations and/or values * Current medical treatment options and benefits/burdens of those options * Likely scenarios comparing ongoing aggressive care with a transition to comfort measures only * Questions answered to the best of my ability * Palliative care contact information provided . 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 Probable causes of plain include multiple surgeries, invasive lines ( central line, PIV), Sandoval, BEV drains, ostomy, NG tube, tracheostomy, immobility , bedbound status etc. Patient receives oxycodone 20mg PO every 4 hours ATC , acetaminophen 650 mg PO q6 hours ATC and Duragesic patch 75 g every 72 hours. Additionally PRN hydromorphone 2mg IV is available every 2 hours, patient is using sparingly (2 doses of hydromorphone were administered in the past 24 hours.) . (2) Malnutrition 0-10 Scale: Unable to quantify (3) Encephalopathy 0-10 Scale: Unable to quantify Comment: Patient remains encephalopathic. Pertinent Non-Medical Issues Psychosocial: Spiritual: Legal: Ethical issues impacting care: Important Contacts Clemencia Smith, spouse: [phone] Kezia Starks, daughter: [phone] . . Code Status: Full Code Plan * FULL CODE * Decision-making: The patient is currently not capacitated to participate in decisions related to medical treatment goals. There is no designated health care surrogate. Per [place] statutes, in the absence of written advanced directives healthcare proxy falls to the patient's .HCP: CLEMENCIA SMITH, * Goals: Patient's daughter and state the patient would not want to be kept alive on machines. They understand that should the patient survives this hospitalization, he will require [facility] a [facility] upon discharge. They family is hopeful the patient will eventually return home. * Symptom managementpain: Patient has a history of chronic pain, takes methadone and MS Contin at home. Probable causes of plain include multiple surgeries, invasive lines (central line, PIV), Sandoval, BEV drains, ostomy, NG tube , tracheostomy, immobility, bedbound status etc. Patient receives oxycodone 20mg PO every 4 hours ATC , acetaminophen 650 mg PO q6 hours ATC and Duragesic patch 75 g every 72 hours. Additionally PRN hydromorphone 2mg IV is available every 2 hours, patient is using sparingly (2 doses of hydromorphone were administered in the past 24 hours.) Palliative care will monitor PRN requirements and make adjustments as indicated. * Symptom managementmalnutrition. Patient currently tolerating tube feedings at 60ml/hour. 01/16/16: Protein 4.9, Albumin 1.1. Bilateral lower extremities with atrophy, muscle wasting. Continue to monitor, no recommendations at this time. * Spoke with Dr. Gonzalez and nurse Zeinab. * Palliative care contact information provided to the patient's and daughter. * Palliative care will continue to follow this patient throughout his hospitalization to establish trust, assist with symptom management and clarification of medical treatment goals. Thank you for the opportunity to participate in the care of Mr. Smith. Attestation To help prompt me to consider important information that might be impacting today's encounter and assessment, information from prior notes written by myself or my colleagues may have been "brought forward" into today's note. My signature on this note, however, is an attestation that I personally performed the exam, history, and/or decision-making noted today, and, unless otherwise indicated, the interactions with patient, family, and staff as well as the review of records all occurred today. I also attest that the listed assessment and stated plan reflect my best clinical judgment today based on the combination of historical information, prior notes, and today's exam/ interactions. When time spent is documented, it refers only to time spent today by the signer, or if indicated, combined time spent today by collaborating physician/nurse practitioner. . Leah Pop Jan 16, 2016 10:43
[2016-01-16] MEDS: FLUCONAZOLE 400 MG PREMIX BAG 200 ML IV SCH (11:56)
[2016-01-16] MEDS: HYDROmorphone HCL PF 2 MG/ML VIAL IV PUSH PRN ×2 (12:15→16:30)
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
[2016-01-16] MEDS: SODIUM CHLORIDE 0.9% FLUSH 5 ML FLUSH IVF PRN ×2 (20:23→21:55)
[2016-01-16] MEDS: FERROUS SULFATE 300 MG /5ML UDC TUBE SCH (21:54)
[2016-01-17] VITALS (19 sets, daily range): BP systolic 118–150; BP diastolic 80–91; PULSE 93–111; RESP 10–21; TEMP 97.7–98.8; O2SAT 95–100
[2016-01-17] MEDS: ACETAMINOPHEN 650 MG/20.3 ML UDC PO SCH ×2 (00:21→04:18)
[2016-01-17] MEDS: oxyCODONE HCL ORAL CONC 20 MG/ML SYRINGE PO SCH ×6 (00:21→22:06)
[2016-01-17] MEDS: CHLORHEXIDINE GLUCONATE 2 % 1 PACK (2 CLOTHS) TOP SCH (03:35)
[2016-01-17] MEDS: POTASSIUM PHOSPHATE MONOBASIC 500 MG TAB TUBE SCH (04:19)
[2016-01-17] MEDS: SODIUM CHLORIDE 0.9% FLUSH 5 ML FLUSH IVF PRN ×2 (04:19→05:18)
[2016-01-17] MEDS: metroNIDAZOLE 500 MG INJ 100 ML IV SCH ×2 (04:19→11:26)
[2016-01-17 04:20] LABS: AUTOMATED NEUTROPHIL # 9.5 TH/MM3 (1.8-7.7); BASOPHIL # 0.1 TH/MM3 (0-0.2); BASOPHIL % 0.5 % (0.0-2.0); EOSINOPHIL # 0.2 TH/MM3 (0-0.4); EOSINOPHIL % 1.9 % (0.0-4.0); LYMPH % 9.4 % (9.0-44.0); LYMPHOCYTE # 1.2 TH/MM3 (1.0-4.8); MEAN CELL VOLUME 93.3 FL (80.0-100.0); MEAN CORPUSCULAR HEMOGLOBIN 29.7 PG (27.0-34.0); MEAN CORPUSCULAR HGB CONC 31.9 % (32.0-36.0); MONO % 13.1 % (0.0-8.0); NEUT % 75.1 % (16.0-70.0); PLATELET COUNT 107 TH/MM3 (150-450); RED BLOOD COUNT 2.21 MIL/MM3 (4.50-5.90); RED CELL DISTRIBUTION WIDTH 18.1 % (11.6-17.2); WHITE BLOOD COUNT 12.6 TH/MM3 (4.0-11.0)
[2016-01-17 04:25] LABS: HEMO FLAGS AUTO DIFF
[2016-01-17 04:29] LABS: HEMATOCRIT 20.6 % (39.0-51.0)
[2016-01-17 04:49] LABS: BICARBONATE 17.4 MEQ/L (21.0-32.0); POTASSIUM 4.2 MEQ/L (3.5-5.1)
[2016-01-17] MEDS: INSULIN ASPART SUPPLEMENTAL SCALE SQ SCH ×4 (05:13→18:00)
[2016-01-17] MEDS: CEFEPIME INJ 2,000 MG in SODIUM CHLORIDE 0.9% INJ 100 ML IV SCH (05:17)
[2016-01-17] MEDS: METOPROLOL TARTRATE 5 MG/5 ML VIAL IV PUSH SCH ×3 (05:18→21:47)
--- NOTE | 2016-01-17 07:27 | HHI.CCPN ---
Subjective Remarks/Hospital Course 55-year-old male brought by EMS with altered mental status. He has been confused for 2 days but this morning has been the worst. He has history of chronic opiate medications including methadone and morphine that he takes for pain management and hence they gave him Narcan IV which brought the GCS up to 13. The blood glucose was 74. He has open wounds from his right upper and bilateral lower extremities. He has history of hepatitis C. Last week he was pealing and eating shrimps. Bedside blood sugar was 76 in the ER. He was tachycardic in 1 teens and was intubated in the ED for airway protection. Admitted to ICU with sepsis due to Staph Aureus hand infection and E. Coli bacteriemia. 12/05 Patient remains sedated with Fentanyl and intubated. On Levophed 3 mics, Vasopressin 0.03 mics and Bicarb drip. T:99.8 TF placed on hold OGT to LIWS last night - gastric drainage 525ml overnight. 12/06 Patient is sedated with Fentanyl and intubated, On Levophed 3 mics, off vasopressin. Gastric output 400ml in 24 hrs. KUB abdomen yesterday mildly distended colon otherwise non specific KUB. 12/07 Patient is off sedation remains intubated tolerated CPAP for most day yesterday. Afebrile. on no drips, tolerating tube feeds. 12/08 Patient went to OR yesterday for debridement and irrigation of right forearm and wound VAC placement. Given 2U PRBC and 2u PLT yesterday and currently receiving 1of 2 u additional PRBC. Hgb 7.7, PLT 43 this morning. Patient also started on pressors now on Levophed 10 mics. Vasopressin 0.04 mics. On no sedation. 12/09 Patient remains intubated off pressors, Afebrile. Tolerating tube feeds. Afebrile. 12/10 Patient is sedated with Fentanyl and intubated. Awake and follows commands off sedation. Afebrile. 12/11 Patient had ?SVT overnight given Lopressor 2.5mg IV x1, Remains intubated and sedated with Fentanyl. Afebrile. Tolerating TF. 12/12 Patient spoked fever last night with T: 101.5, sedated with Fentanyl and intubated. 12/13 Patient had an episode of desaturation overnight required increase FIO2/ PEE now on ACV with RR 14, TV 550, PEEP: 12, FIO2 60% with sats 100% CT chest performed overnight showed b/l consolidation and small pleural effusion. Had T: 100.0 last night. 12/14 Tolerating PS 15/CPAP 10 FiO2 40% with rSBI 38, weaning. . Awake and alert , following commands. Hypotensive overnight and levophed restarted up to 12 mcg/ min. Nurse has been weaning throughout the day. Suspected adrenal insufficiency as he was on prednisone as outpatient for gout and has not been on stress dose steroids. Given decadron. 12/15 Transfused 1 unit PRBC for Hgb 7.0 yesterday, 1 unit PRBC for Hgb 6.6 today and now Hgb 8.3. Does not clinically have e/o active GI bleeding and wound vac output nonbloody. Stool 1500 output, C diff negative. No abdominal pain. Remains Awake and alert, remained on CPAP 10/5 last night and is now tolerating CPAP 5/5. 12/16: Extubated yesterday tolerating well. Breathing comfortably. Able to follow commands. UO 1.8 L in 24 hours. Na slightly increased to 153. 12/17: Significantly worse this AM. WBC up to 28 from 16. Hgb 5.2 from 7.9. tachycardic. pale this AM. states he feels tired. Continues on BiPAP. Plan for debridement of his arms today. LIJ CVL does not have any signs of overt infection. 12/18: Blood cell count continues to rise today to 30 from 28. Required 1 unit of blood for hemoglobin of 6.6 which improved to 7.7 this morning. However, patient remains tachycardic in the 120s and significantly pale. CT abdomen and pelvis ordered and pending. Tachypneic with respiratory rate in the 30s. Only small amount of dark tarry stool yesterday with approximately 300 cc of stool output. C. difficile toxin negative 3. After discussion with infectious disease, restart vancomycin, cefepime, Flagyl, micafungin. Horn cultures are pending. Per discussion with GI, will not scope as endoscopy is high risk given his tenuous respiratory status this point. Slightly worse hypernatremia as well as worsening acute kidney injury this morning. 12/19: POD 1 s/p ex-lap, washout for perforated ascending colon with extended right hemicolectomy, primary ileocolic anastamosis, open abdomen, septic shock, acute hypoxic and hypercarbic respiratory failure. Significantly critically ill overnight: required 6L ivf resuscitation, 1 unit prbc, norepinephrine, vasopressin, stress dose hydrocortisone. This morning, remains on high-dose vasopressors. still has large volume ivf requirement. Significant SIRS response. Vent requirements increasing with all this volume resuscitation, PEEP up to 10. He remains critically ill, and although I do believe we have surgical source control, I anticipate he will continue to clinically decline before he starts to make improvements. 12/20: Off pressors. follows commands on sedation holiday. +11L over last 3 days during acute illness, +22L since admission. We are going to have to get some of this volume back before we are able to close him given his severe anasarca. 12/21: Taken back to the OR yesterday afternoon for washout and completion colectomy. Postoperatively was significantly under resuscitated as well as had ongoing active oozing. Patient was coagulopathy. The patient was in distributive and hemorrhagic shock. The patient was given multiple units of blood products overnight. Patient was thrombocytopenic, hypofibrinogenemic, coagulopathic. Given significant volume of blood product resuscitation: 24h blood products: 13 prbc 8 ffp 2 plt 1 10-pack cryo This morning continues to have significant amount of bright red output out of his BEV and wound VAC, approximately 500 cc an hour out of his wound VAC, and approximately 75 an mils every 10 minutes out of a BEV. I discussed with surgery and we will correct his coagulopathy and plan to go back to the OR for exploration early this afternoon. 12/22: Clinically starting to improve hemodynamically. off vasopressors. Net+ 26L. CVP rising to 14. UOP adequate. Hgb 7 this AM. 12/23 Seen postop. Hypertensive, BP improved with additional pain medicine. Remains net positive but urine output excellent 3L in 24 hours. Remains on Lasix gtt. went to OR today status post wound VAC change and partial closure 12/24: Fascia was closed yesterday. Wound Vac in place. Remains sedated. -2L negative balance, but with increasing BUN/creat. Discontinue Bumex infusion, start scheduled Bumex 2 mg IV every 12 with IV albumin. 12/25: Overnight became hypotensive requiring Levophed to be restarted. Hemoglobin dropped to 4.1. Noted to have bloody drainage from G-tube and dorsal ileostomy with black stool output 12/26: s/p EGD yesterday-2 gastric ulcers bleeding, stomach a significant part had decreased discoloration indicating probable ischemia. s/p epi injection and cauterization. Continues to have coffee ground G tube output, black tarry Ileostomy output. Hemoglobin down to 6.4 getting 2 units of PRBC. GI recent recommending intervention radiology consult. 12/27: For trach today. Meds ordered. Hgb decline consistent with recent transfusions and senescent cells. 12/28: Trach clean, dry. Start SBTs. Check prealbumin. Continue TPN. 12/29: Looks in direction of voice. I have not seen more purposeful reactions. Line > 12 days old, replace today. Prealbumin 20 - good response to TPN. 12/30: Remains vented, encephalopathic, puss like drainage from left hand, WBC increased 01/01: no significant changes. continues to remain critically ill with minimal improvements over the last week. abdomen closed. still total body volume overloaded. 01/02: more awake today than yesterday. continues to be critically ill with minimal improvements overall. need to look towards placement. -900 yesterday. 01/03: up in chair yesterday. tolerated short run of SBT 15/5/40%. net euvolemic. wbc downtrending. 01/04: wbc slightly uptrended 33 from 30, more acidotic on BMP (14 from 20). Also spiking fevers to 102.3 despite tylenol. continues on broad spectrum abx. yesterday's cxr had what may be a new LLL infiltrate. today, though, he is following commands and more awake and alert. 01/05: LLL pna clinically and based on bronch. CT c/a/p done last night without any significant intra-abdominal change. small left pleural effusion which appears simple in nature, and LLL consolidation. ID broadened abx. today , wbc downtrending. culture data pending. Hgb 7 this AM. 01/06: Underwent exploratory laparotomy last night with findings of bleeding gastric ulcer which was oversewn by Dr. Verdin abdomen left open with wound VAC in place. Received 3 units PRBCs overnight. Remains on Wesley-Synephrine drip this morning for hypotension. Remains sedated, on mechanical ventilation. 01/07: Remains sedated, on mechanical ventilation. For abdominal incision site closure today. Significant positive fluid balance over the last 2 days. Off pressors currently. Lasix to mobilize fluid. 01/08: Remains sedated, on mechanical ventilation via tracheostomy. Underwent abdominal incision site closure this morning. Remains off pressors. Anasarca noted. Blood cultures from 01/04 growing Nava parapsilosis. 01/09: Drowsy/sedated, arousable, on mechanical ventilation via tracheostomy. TPN started yesterday. To be started on J-tube feeds per discussion with surgery 01/10: Sedated, arousable, on mechanical ventilation via tracheostomy. Remains on TPN. J-tube feeds being started today. 01/11: Was on T piece yesterday and rested on C Pap overnight. On TPN. Advanced J-tube feeds to 20 cc an hour today. Attempt T piece as tolerated. 01/12: Awake, tracks with his eyes. On C Pap overnight. Tolerated T piece during daytime yesterday. 01/13: Awake and alert. Was on T piece all day yesterday and was placed back on C Pap at 1:45 AM this morning. Does not appear to be in any acute distress. Tolerating J-tube feeds at 20 cc per hour. 01/14: Drowsy, easily arousable. Was on T piece all day yesterday and rested on C Pap at night. Tolerating J-tube feeds at 40 cc an hour with goal of 60 cc per hour. On TPN which will be discontinued after current bag. BEV drain with cloudy drainage. 01/15 Was placed back on ACV yesterday around 9 am due to tachypnea and remained on ACV overnight. Now on CPAP 10/ and tolerating. BEV in lower abdomen had purulent output yesterday but RN states looks better today. Tolerating tube feeds, stool in ostomy. Off TPN. Removing CVL. Subjective: 01/16 Hgb 6.6 on CBC this morning, lab draw, repeat pending. Tachycardia persists but otherwise no hemodynamic change. The NGT output yesterday was bilious, today brown/slight coffee grounds but mostly clear. No blood from BEV' s.Has been tolerating jejunal tube feeds, placed on hold for now. Has been tolerating CPAP 11/20 with RSBI 10s. GI/General surgery updated. Objective Vital Signs Date Time Temp Pulse Resp B/P Pulse Ox O2 Delivery O2 Flow Rate FiO2 01/17/16 06:00 103 01/17/16 04:16 100 30 01/17/16 04:00 97.9 11 118/82 01/13/16 20:47 T-piece Intake and Output 01/16/16 01/16/16 01/17/16 08:00 16:00 00:00 Intake Total 740 ml 980 ml 559 ml Output Total 965 ml 1350 ml 1075 ml Balance -225 ml -370 ml -516 ml Result Diagram: 01/17/16 0343 01/17/16 0342 Imaging Last 48 hours Impressions Chest X-Ray 01/07/16 0000 Signed Impressions: Service Date/Time: Thursday, January 07, 2016 04:23 - CONCLUSION: Worsening consolidation or atelectasis at the left mid and lower lung. Some degree of left effusion may also be contributing to this. Arnaldo Reyes MD Chest X-Ray 01/06/16 0000 Signed Impressions: Service Date/Time: Wednesday, January 06, 2016 19:46 - CONCLUSION: 1. Basilar airspace disease improved from January 04. Tracheostomy and right central line in satisfactory position. Nomi Falcon MD Abdomen/Pelvis CT 01/06/16 0000 Signed Impressions: Service Date/Time: Wednesday, January 06, 2016 22:07 - CONCLUSION: 1. Over the last day there is development of a large mass in the left upper quadrant measuring up to 18 x 13 cm which appears to be associated with the stomach. The mass is characterized by somewhat concentric areas of decreased and increased attenuation with multiple locules of air. Primary differential diagnosis is hemorrhage into the gastric wall with gastric pneumatosis and possibly gastric ischemia. Gastrostomy is again noted anteriorly. 2. Remainder the exam is relatively stable with drainage tube left upper quadrant, splenectomy, bilateral effusions, feeding jejunostomy and drain within the pelvis. There is also diffuse anasarca and nonobstructing renal calculi. Nomi Falcon MD Last Impressions Chest X-Ray 12/17/15 0600 Signed Impressions: Service Date/Time: Thursday, December 17, 2015 03:25 - CONCLUSION: Persistent left lower lobe consolidation. Osmar Alegria MD Chest CT 12/14/15 0000 Signed Impressions: Service Date/Time: Monday, December 14, 2015 06:12 - CONCLUSION: 1. Cardiomegaly with bilateral consolidation, likely CHF. Pneumonia cannot be excluded. 2. Small right pleural effusion. Wojciech Lockhart MD Abdomen X-Ray 12/06/15 0000 Signed Impressions: Service Date/Time: November 09:53 - CONCLUSION: Nonspecific KUB. Air is seen within a mildly distended colon but contrast is clearly seen in the rectum. Arnaldo Reyes MD Abdomen/Pelvis CT 12/04/15 0000 Signed Impressions: Service Date/Time: Friday, December 04, 2015 16:24 - CONCLUSION: 1. Mildly distended small bowel in the mid and lower abdomen. Contrast is clearly seen extending into the distal small bowel and ascending colon so a complete obstruction is not seen. A transition point is not seen. This pattern likely represents an ileus versus a partial obstruction. 2. Multiple nonobstructing renal stones. 3. Abnormal appearance of the spleen which appears to represent a splenule. It could be correlated if the patient has had either primary splenic removal or splenic injury and this is what is either left of the spleen or a developing splenule. This is likely of no significance. 4. Mild ascites. 5. Increased density within the gallbladder representing either tumefactive sludge or noncalcified stones. 6. Mild bilateral pleural effusions with prominent areas of lower lobe atelectasis or consolidation at the bases bilaterally. 7. Subacute to chronic bilateral rib fractures and multiple compression fractures in the lower thoracic and lumbar spine as described above. The patient does have a prior CT examination from 08/26/2014. All the compression deformities described above are new when compared to that scan. Arnaldo Reyes MD Head CT 12/02/15 1013 Signed Impressions: Service Date/Time: Wednesday, December 02, 2015 11:00 - CONCLUSION: 1. No intracranial abnormality is seen. 2. Air-fluid level in the right maxillary sinus. Arnaldo Reyes MD Objective Remarks Drips: None Jevity 1.5 @ 60 mL per hour GENERAL: Middle-aged chronically critically ill-appearing male, lying in bed, trached. HEENT: NCAT. mucous membranes moist. NECK: trach in place. obese neck. difficult to assess JVD. right IJ triple lumen catheter has been removed and dressing is in place c/d/i. RESPIRATORY: CPAP as tolerated, on 11/20 with RSBI 10s. Breath sounds present bilaterally, scattered rhonchi, diminished left base, no wheezing . CARDIOVASCULAR: regular, tachycardic ~104-107. Sinus tach on monitor. No murmurs rubs or gallops. GASTROINTESTINAL: J tube in place with tube feeds running (now placed on hold) L side BEV drain in mid lower abdomen with with more serous appearing output, serous drainage around it. L side BEV with some serous/sedimentary drainage. Ostomy with soft stool, no melena. Hypoactive bowel sounds. MUSCULOSKELETAL: Generalized anasarca, doughy pitting edema 3+ bilateral feet. Multiple open wounds in the lower extremity, without exudate (observed on 01/15 , today have been wrapped in gauze) RUE - with wound vac in place over right arm with mostly serous, very slightly sanginous output. L upper extremity dressing in place; L forearm. NEURO: Awake, opens eyes spontaneously, makes eye contact, nods. Moves bilateral feet to command. 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 - fentanyl patch 75mcg/h q3d for long acting pain control. - Stop schedule liquid tylenol 650mg per tube q6h in view of increasing bilirubin - Dilaudid 2mg iv q4h prn for breakthrough pain. - oxycodone 20mg per tube q4h scheduled. Respiratory Acute respiratory failure-extubated 12/16/15, reintubated for surgery 12/18 Acute hypoxic and hypercarbic respiratory failure Acute healthcare associated pneumonia- resolved NIGEL on home CPAP - Perc Tracheostomy 12/27 (Dr. Miller) - Vent bundle. Head of bed at 30 degrees. Duoneb q6h and prn. - was reportedly on C Pap/pressure support since 01/09, T piece trials since until placed on ACV 9 am on 01/14 and overnight that night. Now back on CPAP this morning 11/20 and appears can be weaned further from respiratory standpoint, but will address anemia first as he may need sedation/EGD. --CXR 01/15 - L pleural effusion. Will perform bedside u/s and consider thoracentesis. CV Hemorrhagic shock- resolved Septic Shock- resolved Volume overload - keep map > 65 mmHg. - Cortisol level 14 on 12/14 - Stopped stress dose hydrocortisone on 01/12 and started prednisone 10 mg daily 01/13. If hemodynamics changing or if returns to OR would need stress dose hydrocortisone again. - Echo 12/07 EF 65-70%, grade I diastolic dysfunction -On Metoprolol 2.5 mg IV every 8 hours FENRenal: DEIRDRE Hypernatremia Hypophosphatemia Anasarca, third spacing. - Strict intake output, monitor and replete electrolytes, follow BUN/creatinine. - Hypernatremia and creatinine worsening on Lasix. Will hold lasix today and hold scheduled KCL 40 meQ tube daily. D5 @ 50 milliliters per hour. -Remains hypophosphatemic despite Kphos 500q6 x 4 doses. Will give Kphos 15 mmol IV today. -BMP/phos labs in a.m. /GI Acute GIB, hemorrhagic shock (resolved, now with recurrent anemia but not shock) Perforated right colon with colitis s/p ex-lap, extended right hemicolectomy with primary ileocolic anastamosis, washout, open abdomen (12/18) s/p Elap 01/05 for bleeding gastric ulcer Acute protein calorie malnutrition- severe - Start protonix drip. - EGD 12/26/15 showed 2 large gastric ulcers with active bleeding status post epinephrine infusion and cauterization - OR on 12/24 with Removal of VAC, washout, pancreatic drain and pelvic drain placement, gastrostomy, feeding jejunostomy and closure of abdomen with application of VAC device in the subcutaneous tissue. -to OR 01/05 with GI bleeding and hemorrhagic shock. Had bleeding gastric ulcer and pneumatosis of stomach. Underwent gastrotomy with ligation of gastric ulcer , lysis of adhesions, wound VAC placement -Prior TPN stopped 01/01. Again on TPN 01/08-01/14. - Has been tolerating J tube feeds with Jevity 1.5 at 60cc/hr (per nutrition recs). Now held in order to evaluate for bleeding. May need to place PICC and resume TPN. -Updated General surgery/GI. Heme: Acute Anemia secondary to acute blood loss Thrombocytopenia Hypofibrinogenemia secondary to consumption and acute blood loss Coagulopathy secondary to consumption and acute blood loss --monitor CBC --Hep PLT ab negative on 12/03 - Ferrous Sulfate bid - transfused 3 units PRBCs 01/05- -Hgb 6.6 from 9.2. Repeat CBC pending. Transfuse prn symptoms or hgb <7. ID Severe sepsis Necrotizing Fascitis - MSSA on wound culture 12/07. Ecoli bacteremia 12/01 MSSA bacteremia 12/05. Cleared on f/u blood culture 12/07, 12/12. Candidemia (blood culture 01/04 with Nava parapsilosis) Sepsis of Intra-abdominal origin. C. difficile toxic megacolon --Debridement 12/01 p.m at bedside by Dr Pedro and Dr. Hartmann --R hand, forearm and olecranon bursa I and D and Wound vac 12/07 Dr Chavez. -- ABX per ID: IV cefepime 12/17 #31,flagyl IV 12/17 #31 Fluconazole 01/09#8, Vancomycin 01/04 #13 (trough 21 on 01/05). Micafungin stopped per ID 01/08. Amphotericin B started by ID on 01/08 and stopped 01/09. Nava parapsilosis in blood culture from 01/04 most likely from an intra- abdominal source(central line was changed on 01/04). BEV drain with cloudy drainage 01/14. Continued intra-abdominal infection on Abx per ID. General surgery following. Last set of blood cultures have been negative. Plan Repeat CT Abd/pelvis if clinically worsening or sepsis worsens. Opthalm consult requested by Dr. Becerra in v/o candidemia to eval for endopthalmitis. Seen by Dr. Wu 01/13 and no evidence of endogenous endophthalmitis Wound care following for leg wounds. --12/17 blood cultures: NGTD 12/17 central line culture: NGTD 12/17 urine cultures: NGTD 12/17 sputum cultures: NGTD C. difficile toxin 12/17: Negative (3rd negative toxin screen) -01/04 Blood culture with nava parapsilosis 01/04: horn culture, bronch with BAL, 01/04: CT chest/abd/pelvis without contrast: LLL consolidation, otherwise unchanged. 01/04: clinically LLL VAP. 01/08 Blood cultures: no growth 01/09 blood culture peripheral - NGTD 01/12 sputum cutlure - neg 01/12 - urine culture NGTD. --ID Dr. Becerra Endocrine: Hyperglycemia of Critical Illness Diabetes - off Insulin drip - Levemir BID on hold. - On low-dose insulin sliding scale with bedside glucose every 6 hours. Glucose at target since off TPN. - Prednisone 10mg po daily. slow taper started however pt back on pressors after Elap on 01/06 so started hydrocortisone 50 mg IV every 8 hourly on 01/06, decreased to [id number] on 01/11. Stopped Hydrocortisone 01/12 and has been on prednisone 10mg daily since 01/13 Prophylaxis: GI Prophylaxis: -- Protonix IV BID DVT Prophylaxis: - SCDs Subcutaneous heparin on hold since 01/05, will keep on hold due to concern for recurrent bleeding. ACCESS: --PIV. May need to place PICC or CVL for TPN. Right IJ TLC 01/04-01/15 #12. Central access no longer needed. Placed peripheral IV and discontinue central venous line. PT/OT. Discussed with gastroenterology. Discussed with general surgery. Critical Care: The total critical care time was 42 minutes. Time to perform other separately billable procedures was not included in the critical care time. Problem Qualifiers (1) Respiratory failure: Qualified Code: J96.00 - Acute respiratory failure, unspecified whether with hypoxia or hypercapnia (2) Altered mental status: Qualified Code: R41.0 - Delirium (3) Sepsis: Qualified Code: A41.9 - Sepsis, due to unspecified organism Isabela Gonzalez MD Jan 17, 2016 07:27
[2016-01-17] MEDS ORDERED: POTASSIUM PHOSPHATE INJ 15 MMOL in SODIUM CHLORIDE 0.9% INJ 150 ML IV ONE (07:45)
[2016-01-17] MEDS: DEXTROSE 5% IN WATE 1000ML INJ 1,000 ML IV SCH ×2 (08:09→18:54)
[2016-01-17] MEDS: PANTOPRAZOLE INJ 80 MG in SODIUM CHLORIDE 0.9% INJ 100 ML IV SCH ×2 (08:09→18:54)
[2016-01-17 08:45] LABS: BANDS 8 % (0-6); EOSINOPHILS 2 % (0-4); METAMYELOCYTES 3 % (0-1); MYELOCYTES 2 % (0-0); NEUTROPHIL # MANUAL DIFF 9.6 TH/MM3 (1.8-7.7); POLYS (SEG NEUTROPHILS) 63 % (16-70); WBC DIFF SAMPLE 100
[2016-01-17 08:47] LABS: PLATELET ESTIMATE SMEAR LOW (NORMAL); PLATELET MORPHOLOGY ENLARGED (NORMAL)
[2016-01-17 08:48] LABS: KERATOCYTES OCC (NORMAL); SCAN/DIFF FINAL DIFF MANUAL
[2016-01-17] MEDS: CHLORHEXIDINE 0.12% (ORAL KIT) 15 ML CUP MT SCH ×2 (08:58→19:55)
[2016-01-17] MEDS: predniSONE 10 MG TAB NG SCH (08:58)
[2016-01-17] MEDS: FERROUS SULFATE 300 MG /5ML UDC TUBE SCH ×2 (08:59→21:47)
[2016-01-17] MEDS: NEOMYCIN/POLYMYXIN/BACITRACIN OINT 15 GM TUBE TOPICAL SCH ×2 (09:00→21:00)
[2016-01-17] MEDS: POVIDONE IODINE 10% OINT 30 GM TUBE TOPICAL SCH (09:00)
[2016-01-17 09:02] LABS: BASOPHIL # 0.1 TH/MM3 (0-0.2); BASOPHIL % 0.8 % (0.0-2.0); EOSINOPHIL # 0.4 TH/MM3 (0-0.4); EOSINOPHIL % 2.3 % (0.0-4.0); HEMATOCRIT 24.9 % (39.0-51.0); LYMPHOCYTE # 1.6 TH/MM3 (1.0-4.8); MEAN CELL VOLUME 90.2 FL (80.0-100.0); MEAN CORPUSCULAR HEMOGLOBIN 29.7 PG (27.0-34.0); MEAN CORPUSCULAR HGB CONC 32.9 % (32.0-36.0); MONO % 13.3 % (0.0-8.0); NEUT % 73.6 % (16.0-70.0); PLATELET COUNT 166 TH/MM3 (150-450); RED BLOOD COUNT 2.76 MIL/MM3 (4.50-5.90); RED CELL DISTRIBUTION WIDTH 17.6 % (11.6-17.2); WHITE BLOOD COUNT 16.3 TH/MM3 (4.0-11.0)
[2016-01-17 09:06] LABS: HEMO FLAGS AUTO DIFF
--- NOTE | 2016-01-17 09:11 | HHI.GIFU ---
Subjective Remarks GI reconsulted for acute drop in Hgb. Spoke with Dr. Gonzalez, NGT yesterday was draining bilious colored material and today has more brownish/coffee ground. No fresh active bleeding. Liquid brown mixed with solid brown stool in bag. When TF was turned off, bilious colored secretions came from J tube. (Lisa Monroy) Objective Vitals I&O Vital Signs Date Time Temp Pulse Resp B/P Pulse Ox O2 Delivery O2 Flow Rate FiO2 01/17/16 08:29 100 30 01/17/16 06:00 103 01/17/16 04:16 100 30 01/17/16 04:00 30 01/17/16 04:00 110 01/17/16 04:00 97.9 110 11 118/82 100 01/17/16 02:00 106 01/17/16 01:46 100 30 01/17/16 00:00 98.8 107 18 130/81 100 01/17/16 00:00 30 01/17/16 00:00 107 01/16/16 22:30 96 30 01/16/16 22:00 104 01/16/16 20:55 99 30 01/16/16 20:00 30 01/16/16 20:00 115 01/16/16 20:00 97.6 115 24 155/93 99 01/16/16 16:32 99 30 01/16/16 16:00 98.1 116 17 163/96 100 01/16/16 16:00 30 01/16/16 12:00 99.7 108 19 170/90 100 01/16/16 12:00 30 01/16/16 11:15 100 30 01/16/16 09:00 30 I/O 01/16/16 01/16/16 01/16/16 01/17/16 01/17/16 01/17/16 07:00 15:00 23:00 07:00 15:00 23:00 Intake Total 740 ml 980 ml 559 ml 594 ml Output Total 965 ml 1000 ml 1425 ml 1260 ml Balance -225 ml -20 ml -866 ml -666 ml Intake Oral 0 ml 0 ml 0 ml IV Total 220 ml 520 ml 100 ml 200 ml Tube Feeding 400 ml 460 ml 459 ml 394 ml Other 120 ml Output Urine Total 300 ml 500 ml 550 ml 550 ml Stool Total 400 ml 450 ml 300 ml 625 ml Gastric Drainage Total 200 ml 310 ml 25 ml Drainage Total 65 ml 50 ml 265 ml 60 ml Laboratory Laboratory Tests Test 01/17/16 01/17/16 03:42 03:43 Sodium Level 151 Potassium Level 4.2 Chloride Level 122 Carbon Dioxide Level 17.4 Anion Gap 12 Blood Urea Nitrogen 92 Creatinine 2.37 Estimat Glomerular Filtration 29 Rate Random Glucose 132 Calcium Level 7.7 Phosphorus Level 2.3 White Blood Count 12.6 Red Blood Count 2.21 Hemoglobin 6.6 Hematocrit 20.6 Mean Corpuscular Volume 93.3 Mean Corpuscular Hemoglobin 29.7 Mean Corpuscular Hemoglobin 31.9 Concent Red Cell Distribution Width 18.1 Platelet Count 107 Mean Platelet Volume 11.4 Neutrophils (%) (Auto) 75.1 Lymphocytes (%) (Auto) 9.4 Monocytes (%) (Auto) 13.1 Eosinophils (%) (Auto) 1.9 Basophils (%) (Auto) 0.5 Neutrophils # (Auto) 9.5 Lymphocytes # (Auto) 1.2 Monocytes # (Auto) 1.7 Eosinophils # (Auto) 0.2 Basophils # (Auto) 0.1 CBC Comment AUTO DIFF Differential Total Cells 100 Counted Neutrophils % (Manual) 63 Band Neutrophils % 8 Lymphocytes % 12 Monocytes % 10 Eosinophils % 2 Neutrophils # (Manual) 9.6 Metamyelocytes 3 Myelocytes 2 Differential Comment FINAL DIFF MANUAL Platelet Estimate LOW Platelet Morphology Comment ENLARGED Keratocytes OCC Date/Time Procedure Status Source Growth 01/13/16 14:45 Urine Culture - Final Complete Urine Catheterized Urine NO GROWTH IN 48 HOURS. 01/13/16 14:40 Gram Stain - Final Complete Sputum Endotracheal 01/13/16 14:40 Sputum Culture - Final Complete Sputum Endotracheal HEAVY GROWTH NORMAL RESPIRATORY DORI Imaging Last Impressions Chest X-Ray 01/16/16 0600 Signed Impressions: Service Date/Time: Saturday, January 16, 2016 03:01 - CONCLUSION: No appreciable change. Freddy Connor MD Abdomen/Pelvis CT 01/06/16 0000 Signed Impressions: Service Date/Time: Wednesday, January 06, 2016 22:07 - CONCLUSION: 1. Over the last day there is development of a large mass in the left upper quadrant measuring up to 18 x 13 cm which appears to be associated with the stomach. The mass is characterized by somewhat concentric areas of decreased and increased attenuation with multiple locules of air. Primary differential diagnosis is hemorrhage into the gastric wall with gastric pneumatosis and possibly gastric ischemia. Gastrostomy is again noted anteriorly. 2. Remainder the exam is relatively stable with drainage tube left upper quadrant, splenectomy, bilateral effusions, feeding jejunostomy and drain within the pelvis. There is also diffuse anasarca and nonobstructing renal calculi. Nomi Falocn MD Chest CT 01/05/16 0000 Signed Impressions: Service Date/Time: Tuesday, January 05, 2016 23:15 - CONCLUSION: 1. Persistent left lower lobar consolidation. Improved consolidative infiltrates in the right lower lung. 2. Interval increase size bilateral pleural effusions , left greater than right. Osmar Alegria MD Celiac/Hepatic Arteriogram 12/27/15 0000 Signed Impressions: Service Date/Time: December 13:41 - CONCLUSION: 1. No active GI bleed identified. Robert Mckinney MD Abdomen X-Ray 12/18/15 0000 Signed Impressions: Service Date/Time: Friday, December 18, 2015 16:05 - CONCLUSION: Feeding tube tip is at the gastric antrum. Arnaldo Elias MD Head CT 12/02/15 1013 Signed Impressions: Service Date/Time: Wednesday, December 02, 2015 11:00 - CONCLUSION: 1. No intracranial abnormality is seen. 2. Air-fluid level in the right maxillary sinus. Arnaldo Reyes MD Physical Exam HEENT: Normocephalic; atraumatic; no jaundice. CHEST: Resp. shallow, diminished. Tracheostomy, course breath sounds CARDIAC: ST- 110's ABDOMEN: Soft, nondistended. J tube - TF was turned off, had some yellowish bilious material from tube. Midline drsg d/i, BEV drain x 2RLQ ileostomy with mixture of brown liquid and brown solid stool. EXTREMITIES: Generalized edema. RUE wound vac SKIN: Drsg to RUE, LUE, BLE.- multiple ecchymotic areas [employer]REDDED [employer] LAYER: Awake, lethargic, generalized weakness (Lisa Monroy) Assessment and Plan Plan ASSESSMENT: - Drop in Hgb. Reconsulted for significant drop in Hgb overnight from 9.2/28.7 to 6.6/20.6. Per CCM, pt had bilious drainage from NGT yesterday and is more diluted coffee ground drainage today. Pt had large bleeding ulcers- had endoscopic treatment (12/26), but started to have significant bleeding causing hemorrhagic shock with gastric pneumatosis and underwent exploratory laparotomy, MAKENZIE, gastrotomy with ligation of gastric ulcer, VAC placement (01/07/16). Clinically, patient appears stable. Repeat labs have been ordered. NPO. Will await repeat labs, if true drop in Hgb, will plan for possible EGD today. - Upper GI bleed/Gastric Ulcers. S/P EGD (12/27/15)-----> Large clots filling the stomach. There was active bleeding from small ulcerations next to the PEG tube that was cauterized and injected with lidocaine. Next to that area, about 1-2 cm, there was a large deep ulcer which was actively bleeding, injected with lidocaine and cauterized. Significant amount of the stomach was grayish in color, possible ischemia, significant esophagitis. Went for angiogram with selective injection of the celiac origin, left gastric, gastroepiploic and SMA- No active GI bleed identified (12/27/15). S/P Exploratory laparotomy, MAKENZIE, gastrotomy with ligation of gastric ulcer, VAC placement (01/07/16). - Severe anemia. 6.6/20.6. Repeat labs ordered - Perforated right colon sec. to colitis, s/p ex-lap, extended right hemicolectomy with primary ileocolic anastomosis, washout, open abdomen (12/18) per surgery. Path suspicious for Ischemic vs. CDifficilie. S/P Exp. lap with subtotal colectomy (12/20). - GERD, requiring daily antacids at home. PPI. - Severe sepsis with worsening leukocytosis - RUE infection/wound. Per plastics/ID - Resp. Failure. S/P TracheostomyPer [facility]/Electrolyte abnormalities. Creat 2.37 - Chronic hepatitis C. S/P tx with Interferon/Ribavirin 6-7 years ago. reports that he was undetectable during treatment, but did not have a sustained virological response. He has never been told that he has liver cirrhosis. Liver biopsy (04/14/08)----> chronic hepatitis C with mild periportal inflammation grade 2 and mild fibrous portal expansion stage 1. He does not drink ETOH. PLAN: - NPO - NGT to LIWS - Cont. Protonix Gtt - Rpt H/H stat - Transfuse as necessary - If remains severely anemic, will plan for possible EGD today - CCM following - Supportive care - Notify GI of active bleeding. - Further recommendations to follow based on results of above - Pt seen and examined by Dr. Sanchez and myself and this note is written on his behalf (Lisa Monroy) Physician Comments Patient seen and examined Agree with above Continue with current supportive care Monitor labs and transfuse as needed Plan for EGD today (Con Sanchez MD) Lisa Monroy Jan 17, 2016 09:11 Con Sanchez MD Jan 17, 2016 15:45
[2016-01-17 09:48] LABS: BANDS 3 % (0-6); EOSINOPHILS 1 % (0-4); METAMYELOCYTES 3 % (0-1); MYELOCYTES 5 % (0-0); NEUTROPHIL # MANUAL DIFF 12.7 TH/MM3 (1.8-7.7); POLYS (SEG NEUTROPHILS) 66 % (16-70); PROMYELOCYTES 1 % (0-0); WBC DIFF SAMPLE 100
[2016-01-17 09:50] LABS: KERATOCYTES OCC (NORMAL)
[2016-01-17 09:51] LABS: PLATELET ESTIMATE SMEAR NORMAL (NORMAL); PLATELET MORPHOLOGY ENLARGED (NORMAL); SCAN/DIFF FINAL DIFF MANUAL
[2016-01-17 09:59] LABS: APTT (PATIENT) 28.8 SEC (24.3-30.1); INTERNATIONAL NORMALIZED RATIO 1.1 RATIO; PROTHROMBIN TIME - PATIENT 12.1 SEC (9.8-11.6)
[2016-01-17] MEDS: FLUCONAZOLE 400 MG PREMIX BAG 200 ML IV SCH (11:26)
--- NOTE | 2016-01-17 14:04 | HHI.PR ---
Subjective Subjective Notes Resting in bed Hmg this AM dropped to 6.6 but repeat draw shows hmg of 8.2 Hemodynamically stable Objective Vitals/I&O Vital Signs Date Time Temp Pulse Resp B/P Pulse Ox O2 Delivery O2 Flow Rate FiO2 01/17/16 12:00 107 01/17/16 12:00 98.3 10 133/89 100 01/17/16 12:00 30 01/13/16 20:47 T-piece Labs Laboratory Tests Test 01/17/16 01/17/16 01/17/16 01/17/16 03:42 03:43 08:40 09:30 Sodium Level 151 Potassium Level 4.2 Chloride Level 122 Carbon Dioxide Level 17.4 Anion Gap 12 Blood Urea Nitrogen 92 Creatinine 2.37 Estimat Glomerular Filtration 29 Rate Random Glucose 132 Calcium Level 7.7 Phosphorus Level 2.3 White Blood Count 12.6 16.3 Red Blood Count 2.21 2.76 Hemoglobin 6.6 8.2 Hematocrit 20.6 24.9 Mean Corpuscular Volume 93.3 90.2 Mean Corpuscular Hemoglobin 29.7 29.7 Mean Corpuscular Hemoglobin 31.9 32.9 Concent Red Cell Distribution Width 18.1 17.6 Platelet Count 107 166 Mean Platelet Volume 11.4 11.1 Neutrophils (%) (Auto) 75.1 73.6 Lymphocytes (%) (Auto) 9.4 10.0 Monocytes (%) (Auto) 13.1 13.3 Eosinophils (%) (Auto) 1.9 2.3 Basophils (%) (Auto) 0.5 0.8 Neutrophils # (Auto) 9.5 12.0 Lymphocytes # (Auto) 1.2 1.6 Monocytes # (Auto) 1.7 2.2 Eosinophils # (Auto) 0.2 0.4 Basophils # (Auto) 0.1 0.1 CBC Comment AUTO DIFF AUTO DIFF Differential Total Cells 100 100 Counted Neutrophils % (Manual) 63 66 Band Neutrophils % 8 3 Lymphocytes % 12 13 Monocytes % 10 8 Eosinophils % 2 1 Neutrophils # (Manual) 9.6 12.7 Metamyelocytes 3 3 Myelocytes 2 5 Differential Comment FINAL DIFF FINAL DIFF MANUAL MANUAL Platelet Estimate LOW NORMAL Platelet Morphology Comment ENLARGED ENLARGED Keratocytes OCC OCC Promyelocytes 1 Blood Type B POSITIVE Antibody Screen NEGATIVE Crossmatch Leukocyte-Reduced Red Blood Cells Blood Bank Comment Prothrombin Time 12.1 Prothromb Time International 1.1 Ratio Activated Partial 28.8 Thromboplast Time Date/Time Procedure Status Source Growth 01/13/16 14:45 Urine Culture - Final Complete Urine Catheterized Urine NO GROWTH IN 48 HOURS. 01/13/16 14:40 Gram Stain - Final Complete Sputum Endotracheal 01/13/16 14:40 Sputum Culture - Final Complete Sputum Endotracheal HEAVY GROWTH NORMAL RESPIRATORY D[facility]I Radiology Last Impressions Chest X-Ray 12/28/15 0000 Signed Impressions: Service Date/Time: Monday, December 28, 2015 14:23 - CONCLUSION: Large left pleural effusion and left lung base consolidation. Freddy Connor MD Abdomen/Pelvis CT 12/19/15 0000 Signed Impressions: Service Date/Time: Saturday, December 19, 2015 10:57 - CONCLUSION: 1. Adjacent volume pneumoperitoneum is observed consistent with perforation of a hollow viscus. This is presumably colonic in origin due to the diffuse inflammatory process involving the colon. I do not clearly identify the source of the pneumoperitoneum however. There is mild dilatation of the small bowel likely an ileus in nature. A significant volume of ascitic fluid is noted. 2. Bibasilar atelectasis and bilateral pleural effusions. 3. Small pericardial effusion. 4. Small bilateral nonobstructing renal calculi. 5. I spoke with Dr. Sanchez concerning the findings. Osmar Chavez Jr., MD Abdomen X-Ray 12/18/15 0000 Signed Impressions: Service Date/Time: Friday, December 18, 2015 16:05 - CONCLUSION: Feeding tube tip is at the gastric antrum. Arnaldo Elias MD Chest CT 12/14/15 0000 Signed Impressions: Service Date/Time: Monday, December 14, 2015 06:12 - CONCLUSION: 1. Cardiomegaly with bilateral consolidation, likely CHF. Pneumonia cannot be excluded. 2. Small right pleural effusion. Wojciech Lockhart MD Head CT 12/02/15 1013 Signed Impressions: Service Date/Time: Wednesday, December 02, 2015 11:00 - CONCLUSION: 1. No intracranial abnormality is seen. 2. Air-fluid level in the right maxillary sinus. Arnaldo Reyes MD Cardiovascular: Regular Lungs: Clear Abdomen: Other (Midline incision; packing placed in superior and inferior portion of incision; ileostomy in place with stool; G tube removed; J tube in place without complications with TF; RIGHT BEV with SS fluid; LEFT BEV with minimal darker drainage ) Narrative Exam RIGHT arm with wound vac on Several abrasions with non adherent dressing in place A/P Problem List: (1) Dependent on ventilator (2) Open wound of abdomen (3) Ileostomy in place (4) Jejunostomy tube present (5) S/P total colectomy (6) Acute colitis (7) Gastrostomy tube in place Assessment and Plan 55 year old male s/p ex lap; s/p colectomy; G/J tube placement and would vac change -GI planning to scope due to drop in Hmg and findings of bright red blood in NGT this AM -NPO -Hmg 8.2 today -[place] dressing BID and PRN to midline incision ----packing to superior and inferior areas of incision -Monitor BEV output and drainage color Attending Statement I have seen the patient concern for anemia of blood loss, today HH 6 recheck hh 8, - no blood in BEV GI to scope today Attestation The exam, history, and the medical decision-making described in the above note were completed with the assistance of the mid-level provider. I reviewed and agree with the findings presented. I attest that I had a [id number] encounter with the patient on the same day, and personally performed and documented my assessment and findings in the medical record. Problem Qualifiers (1) Open wound of abdomen: Qualified Code: S31.109D - Open wound of abdomen, subsequent encounter Lurdes Felix Jan 17, 2016 14:04 Bebo Verdin MD Jan 21, 2016 21:10
[2016-01-17] MEDS ORDERED: PROPOFOL 200 MG/20 ML AMP IV ONE (15:16)
[2016-01-17] MEDS: RESP: ALBUTEROL 2.5 MG/IPRATROPIUM 0.5 MG NEB (SCH) NEB ×2 (15:25→20:06)
--- NOTE | 2016-01-17 15:48 | PD.PROCEDR ---
GI Procedure REFERRING PHYSICIAN Dr. Gonzalez PROCEDURE PERFORMED EGD with biopsy INDICATION FOR PROCEDURE Drop in hemoglobin with evidence of blood from the NG tube PROCEDURE: The procedure, risks and benefits were discussed with Mr. Smith and informed consent was obtained. Anesthesia sedated him with Diprivan. He was placed in the left lateral decubitus position. EGD: The Pentax videoscope was introduced through the oropharynx and advanced to the second portion of the duodenum under direct visualization. Retroflexion was performed in the stomach. FINDINGS: The esophagus this was normal The stomach there was a large clean-based antral ulcer there was a second smaller ulcer in the cardia again clean base no visible vessel and there was a large fold there was edematous and irregular in the gastric body this was biopsied and when I did that I saw some sutures so this is actually the suture line with probably granulomatous growth this was biopsied adjacent to it was also a small ulcer again no visible vessel clean-based as for the rest of the gastric mucosa this appeared to be erythemic in a patchy way The duodenum this was normal ESTIMATED BLOOD LOSS: None SPECIMENS REMOVED: Gastric body COMPLICATIONS: None IMPRESSION: Gastric ulcers Gastritis Thickened gastric fold PLAN: Await biopsy Avoid NG tube Continue with PPI May resume tube feeding May resume anticoagulation as necessary but no NSAIDs Repeat EGD in 2 months Con Sanchez MD Jan 17, 2016 15:48
--- NOTE | 2016-01-17 16:28 | HHI.IDPN ---
Subjective Subjective Remarks Pt is afebrile off pressors TF off Antibiotics cefepime IV, IV flagyl fluconazole Lines RSC TLC Past Medical History RA HCV sp splenectomy Allergies: Coded Allergies: Compazine (Verified Allergy, Severe, VOMITING, RASH, 08/26/14) SLURRED SPEECH, MIGRAINES Demerol (Verified Allergy, Severe, VOMITING, 08/26/14) Levaquin (Verified Allergy, Severe, 08/26/14) Penicillin (Verified Allergy, Severe, Rash, 08/26/14) Phenergan (Verified Allergy, Severe, VOMITING, 08/26/14) Uncoded Allergies: ANTI-CONVULSIVES (Allergy, Severe, MIGRAINES, SLURRED SPEECH,, 01/23/14) Objective . Vital Signs Date Time Temp Pulse Resp B/P Pulse Ox O2 Delivery O2 Flow Rate FiO2 01/17/16 12:00 107 01/17/16 12:00 98.3 107 10 133/89 100 01/17/16 12:00 30 01/17/16 11:47 97 30 01/17/16 10:00 111 01/17/16 08:29 100 30 01/17/16 08:00 30 01/17/16 08:00 98.3 108 14 129/80 100 01/17/16 08:00 108 01/17/16 06:00 103 01/17/16 04:16 100 30 01/17/16 04:00 30 01/17/16 04:00 110 01/17/16 04:00 97.9 110 11 118/82 100 01/17/16 02:00 106 01/17/16 01:46 100 30 01/17/16 00:00 98.8 107 18 130/81 100 01/17/16 00:00 30 01/17/16 00:00 107 01/16/16 22:30 96 30 01/16/16 22:00 104 01/16/16 20:55 99 30 01/16/16 20:00 30 01/16/16 20:00 115 01/16/16 20:00 97.6 115 24 155/93 99 01/16/16 16:32 99 30 01/16/16 01/16/16 01/17/16 15:00 23:00 07:00 Intake Total 980 ml 559 ml 594 ml Output Total 1000 ml 1425 ml 1260 ml Balance -20 ml -866 ml -666 ml Intake Oral 0 ml 0 ml IV Total 520 ml 100 ml 200 ml Tube Feeding 460 ml 459 ml 394 ml Output Urine Total 500 ml 550 ml 550 ml Stool Total 450 ml 300 ml 625 ml Gastric Drainage Total 310 ml 25 ml Drainage Total 50 ml 265 ml 60 ml . Laboratory Tests Test 01/16/16 01/17/16 01/17/16 05:00 03:43 08:40 White Blood Count 19.7 TH/MM3 12.6 TH/MM3 16.3 TH/MM3 Red Blood Count 3.14 MIL/MM3 2.21 MIL/MM3 2.76 MIL/MM3 Hemoglobin 9.2 GM/DL 6.6 GM/DL 8.2 GM/DL Hematocrit 28.7 % 20.6 % 24.9 % Mean Corpuscular Volume 91.6 FL 93.3 FL 90.2 FL Mean Corpuscular Hemoglobin 29.4 PG 29.7 PG 29.7 PG Mean Corpuscular Hemoglobin 32.1 % 31.9 % 32.9 % Concent Red Cell Distribution Width 17.6 % 18.1 % 17.6 % Platelet Count 181 TH/MM3 107 TH/MM3 166 TH/MM3 Mean Platelet Volume 11.0 FL 11.4 FL 11.1 FL Neutrophils (%) (Auto) 78.1 % 75.1 % 73.6 % Lymphocytes (%) (Auto) 8.6 % 9.4 % 10.0 % Monocytes (%) (Auto) 11.2 % 13.1 % 13.3 % Eosinophils (%) (Auto) 1.9 % 1.9 % 2.3 % Basophils (%) (Auto) 0.2 % 0.5 % 0.8 % Neutrophils # (Auto) 15.4 TH/MM3 9.5 TH/MM3 12.0 TH/MM3 Lymphocytes # (Auto) 1.7 TH/MM3 1.2 TH/MM3 1.6 TH/MM3 Monocytes # (Auto) 2.2 TH/MM3 1.7 TH/MM3 2.2 TH/MM3 Eosinophils # (Auto) 0.4 TH/MM3 0.2 TH/MM3 0.4 TH/MM3 Basophils # (Auto) 0.0 TH/MM3 0.1 TH/MM3 0.1 TH/MM3 CBC Comment AUTO DIFF AUTO DIFF AUTO DIFF Differential Total Cells 100 100 100 Counted Neutrophils % (Manual) 71 % 63 % 66 % Band Neutrophils % 4 % 8 % 3 % Lymphocytes % 9 % 12 % 13 % Monocytes % 9 % 10 % 8 % Eosinophils % 2 % 2 % 1 % Neutrophils # (Manual) 15.8 TH/MM3 9.6 TH/MM3 12.7 TH/MM3 Metamyelocytes 3 % 3 % 3 % Myelocytes 2 % 2 % 5 % Differential Comment FINAL DIFF FINAL DIFF FINAL DIFF MANUAL MANUAL MANUAL Platelet Estimate NORMAL LOW NORMAL Platelet Morphology Comment ENLARGED ENLARGED ENLARGED Keratocytes OCC OCC Promyelocytes 1 % Laboratory Tests Test 01/16/16 01/17/16 05:00 03:42 Sodium Level 146 MEQ/L 151 MEQ/L Potassium Level 3.6 MEQ/L 4.2 MEQ/L Chloride Level 116 MEQ/L 122 MEQ/L Carbon Dioxide Level 16.8 MEQ/L 17.4 MEQ/L Anion Gap 13 MEQ/L 12 MEQ/L Blood Urea Nitrogen 82 MG/DL 92 MG/DL Creatinine 2.27 MG/DL 2.37 MG/DL Estimat Glomerular Filtration 30 ML/MIN 29 ML/MIN Rate Random Glucose 154 MG/DL 132 MG/DL Calcium Level 8.5 MG/DL 7.7 MG/DL Phosphorus Level 1.7 MG/DL 2.3 MG/DL Magnesium Level 2.0 MG/DL Total Bilirubin 1.9 MG/DL Aspartate Amino Transf 33 U/L (AST/SGOT) Alanine Aminotransferase 29 U/L (ALT/SGPT) Alkaline Phosphatase 317 U/L Total Protein 4.9 GM/DL Albumin 1.1 GM/DL Imaging Last Impressions Chest X-Ray 01/16/16 0600 Signed Impressions: Service Date/Time: Saturday, January 16, 2016 03:01 - CONCLUSION: No appreciable change. Freddy Connor MD Abdomen/Pelvis CT 01/06/16 0000 Signed Impressions: Service Date/Time: Wednesday, January 06, 2016 22:07 - CONCLUSION: 1. Over the last day there is development of a large mass in the left upper quadrant measuring up to 18 x 13 cm which appears to be associated with the stomach. The mass is characterized by somewhat concentric areas of decreased and increased attenuation with multiple locules of air. Primary differential diagnosis is hemorrhage into the gastric wall with gastric pneumatosis and possibly gastric ischemia. Gastrostomy is again noted anteriorly. 2. Remainder the exam is relatively stable with drainage tube left upper quadrant, splenectomy, bilateral effusions, feeding jejunostomy and drain within the pelvis. There is also diffuse anasarca and nonobstructing renal calculi. Nomi Falcon MD Chest CT 01/05/16 0000 Signed Impressions: Service Date/Time: Tuesday, January 05, 2016 23:15 - CONCLUSION: 1. Persistent left lower lobar consolidation. Improved consolidative infiltrates in the right lower lung. 2. Interval increase size bilateral pleural effusions , left greater than right. Osmar Alegria MD Celiac/Hepatic Arteriogram 12/27/15 0000 Signed Impressions: Service Date/Time: December 13:41 - CONCLUSION: 1. No active GI bleed identified. Robert Mckinney MD Abdomen X-Ray 12/18/15 0000 Signed Impressions: Service Date/Time: Friday, December 18, 2015 16:05 - CONCLUSION: Feeding tube tip is at the gastric antrum. Arnaldo Elias MD Head CT 12/02/15 1013 Signed Impressions: Service Date/Time: Wednesday, December 02, 2015 11:00 - CONCLUSION: 1. No intracranial abnormality is seen. 2. Air-fluid level in the right maxillary sinus. Arnaldo Reyes MD Physical Exam GENERAL: On vent , awake alert SKIN: + minimal jaundice. Anasarca HEENT: + mild icterus, no nasal discharge Chemosis + NECK: Trach in place CARDIOVASCULAR: systolic murmur in base of heart RESPIRATORY/CHEST: scattered rhonchi on auscultation.L side with crackes GASTROINTESTINAL: dressing in place JPsx2 in place with seropurulent drainage Stoma with brown stool Incision with dehiscense and serous drainage GENITOURINARY: Sandoval catheter in place with clear light yellow urine with sediment MUSCULOSKELETAL: Extremities no cyanosis, edema 3+- 4 + pitting with poorly healing wounds RUE with VAC in place, serosang dc NEUROLOGICAL: awake, makes eye contact but would attempt to speeak LINES: NO evidence of infection Assessment & Plan Remarks Sepsis related to Cdiff and Intra abdominal peritonitis. - sp subtotal colectomy and ileostomy SP colon perfocation and intraperitoneal gross contamination - wound is not healing ? Cdiff Colitis Noted Cdiff PCR is negative/3 ? Zinc preparation in perianal care could cause false negative test. Path c/o Cdiff Colitis. - repeat path favouring ischemia RUE severe nec fasc due to MSSA - skin grafting was planned, but cancelled - S/P I and D x 3 - clinically resolved Recurretn life threatening upper GI bleeding 2/2 bleeding ulcers Persistent leukocytosis - liekly reactive leukocytosis 2/2 massive gstic bleeding C. parapsilosa fungemia ? sourece intraabd vs (less likely) line - repeat BC negative - no fungal endophalmitis - Dr Parker help appreciated PLAN: dc all abx except fluconazole - anticipate 4 weeks D/W RN dw family at b/s Dr Jewell at b/s Argelia Becerra MD Jan 17, 2016 16:28
--- NOTE | 2016-01-17 17:06 | HHI.HCPN ---
Reason for visit a. To assist with evaluation and management of symptoms including: pain, encephalopathy, malnutrition b. To assist medical decision maker(s) with: better understanding of current medical conditions; weighing benefits/burdens of medical treatment options; making medical treatment decisions. . Subjective/Interval History Patient seen and assessed in room 1317. Patient's and daughter were also present. Patient is more alert today, answering some questions by blinking once for yes and twice for no. Tolerating CPAP throughout the day. Afebrile. WBC trending upward at 16.2, previously 12.6. Urine culture and sputum culture from 01/13/16 showing no growth to date. Blood cultures- negative. Follow chest x-ray with no significant change, persistent left lower lobe consolidation versus atelectasis and left pleural effusion as well as patchy right lung base opacity. GI was re-consulted for acute drop in Hgb this morning. H&H 6.6/20.6, repeat H& H of 8.2/24.9. Patient had bilious colored drainage from NGT yesterday, drainage had a brownish/coffee ground appearance this morning. Liquid brown stool mixed with solid stool in ostomy bag. Bilious secretions were noted from J tube when the TF was turned off. EGD this afternoon showed gastric ulcers, gastritis, thickened gastric fold- no evidence of active bleeding. Biopsy pending. . Family/friend interactions Spoke with patient's daughter and at bedside. Spent a considerable amount of time discussing the patient current clinical condition and recent lab results. Collaborated with SARA Neil to clarify medical treatment goals. Plan for EGD later today. . Advance Directives Living Will: Never completed Health Care Surrogate: Never completed Durable Power of Lunch Cook: Never completed Advance Directive Specifics Health Care Surrogate(s): There is no designated health care surrogate. Per [place] statutes, in the absence of written advanced directives healthcare proxy falls to the patient's , Gopi Smith. . Documented care wishes: None available , Significant change in goals: Goals remain aggressive. EGD sometime today s/p acute drop in Hgb and brownish/ coffee-ground drainage from NGT. . Objective Vital Signs Date Time Temp Pulse Resp B/P Pulse Ox O2 Delivery O2 Flow Rate FiO2 01/17/16 12:00 107 01/17/16 12:00 98.3 107 10 133/89 100 01/17/16 12:00 30 01/17/16 11:47 97 30 01/17/16 10:00 111 01/17/16 08:29 100 30 01/17/16 08:00 30 01/17/16 08:00 98.3 108 14 129/80 100 01/17/16 08:00 108 01/17/16 06:00 103 01/17/16 04:16 100 30 01/17/16 04:00 30 01/17/16 04:00 110 01/17/16 04:00 97.9 110 11 118/82 100 01/17/16 02:00 106 01/17/16 01:46 100 30 01/17/16 00:00 98.8 107 18 130/81 100 01/17/16 00:00 30 01/17/16 00:00 107 01/16/16 22:30 96 30 01/16/16 22:00 104 01/16/16 20:55 99 30 01/16/16 20:00 30 01/16/16 20:00 115 01/16/16 20:00 97.6 115 24 155/93 99 01/16/16 16:32 99 30 Intake & Output 01/17/16 01/17/16 07:00 19:00 Intake Total 1153 ml 882 ml Output Total 2335 ml 980 ml Balance -1182 ml -98 ml Intake Oral 0 ml IV Total 300 ml 596 ml Tube Feeding 853 ml 166 ml Other 120 ml Output Urine Total 1100 ml 440 ml Stool Total 925 ml 100 ml Gastric Drainage Total 35 ml 125 ml Drainage Total 275 ml 315 ml . Physical Exam CONSTITUTIONAL/GENERAL: This is a critically ill middle-aged male patient, tolerating CPAP TUBES/LINES/DRAINS: PIV 2, central line, BEV 2, ostomy, trach, Sandoval, wound VAC , NGT SKIN: No jaundice, rashes, or lesions. Ecchymoses on upper extremities, multiple skin tears. Wound VAC to right upper extremity. Dressings on left upper extremity and bilateral lower extremities c/d/i. Wounds scabbed on knuckles of right hand. HEAD: Atraumatic. Normocephalic. EYES: No injection or drainage. Fundi not examined. ENT: Hearing sppears normal. Nose without bleeding or purulent drainage. NECK: Trachea midline. CARDIOVASCULAR: Regular rate and rhythm without murmurs, gallops, or rubs. No JVD. RESPIRATORY/CHEST: Tolerating CPAP. Breath sounds diminished bilaterally. GASTROINTESTINAL: BEV drain x2 with serous/sedimentary output. Brown liquid stool mixed with solid in stool bag. TF on hold pending EGD. GENITOURINARY: Without palpable bladder distension. Sandoval catheter in place. MUSCULOSKELETAL: Extremities without clubbing or cyanosis. General anasarca. Bilateral lower extremity edema +3. Wound VAC to right upper extremity. NEUROLOGICAL: Opens eyes spontaneously. Answering questions by blinking once for "yes" and twice for "no". PSYCHIATRIC: Unable to assess due to patient's current clinical condition. . Diagnostic Tests Laboratory Laboratory Tests Test 01/15/16 01/16/16 01/17/16 01/17/16 06:16 05:00 03:42 03:43 White Blood Count 21.0 TH/MM3 19.7 TH/MM3 12.6 TH/MM3 (4.0-11.0) (4.0-11.0) (4.0-11.0) Red Blood Count 3.07 MIL/MM3 3.14 MIL/MM3 2.21 MIL/MM3 (4.50-5.90) (4.50-5.90) (4.50-5.90) Hemoglobin 9.0 GM/DL 9.2 GM/DL 6.6 GM/DL (13.0-17.0) (13.0-17.0) (13.0-17.0) Hematocrit 27.6 % 28.7 % 20.6 % (39.0-51.0) (39.0-51.0) (39.0-51.0) Mean Corpuscular Volume 90.1 FL 91.6 FL 93.3 FL (80.0-100.0) (80.0-100.0) (80.0-100.0) Mean Corpuscular Hemoglobin 29.4 PG 29.4 PG 29.7 PG (27.0-34.0) (27.0-34.0) (27.0-34.0) Mean Corpuscular Hemoglobin 32.6 % 32.1 % 31.9 % Concent (32.0-36.0) (32.0-36.0) (32.0-36.0) Red Cell Distribution Width 16.6 % 17.6 % 18.1 % (11.6-17.2) (11.6-17.2) (11.6-17.2) Platelet Count 182 TH/MM3 181 TH/MM3 107 TH/MM3 (150-450) (150-450) (150-450) Mean Platelet Volume 10.7 FL 11.0 FL 11.4 FL (7.0-11.0) (7.0-11.0) (7.0-11.0) Neutrophils (%) (Auto) 83.1 % 78.1 % 75.1 % (16.0-70.0) (16.0-70.0) (16.0-70.0) Lymphocytes (%) (Auto) 7.6 % 8.6 % 9.4 % (9.0-44.0) (9.0-44.0) (9.0-44.0) Monocytes (%) (Auto) 7.3 % (0.0-8.0) 11.2 % 13.1 % (0.0-8.0) (0.0-8.0) Eosinophils (%) (Auto) 1.5 % (0.0-4.0) 1.9 % (0.0-4.0) 1.9 % (0.0-4.0) Basophils (%) (Auto) 0.5 % (0.0-2.0) 0.2 % (0.0-2.0) 0.5 % (0.0-2.0) Neutrophils # (Auto) 17.5 TH/MM3 15.4 TH/MM3 9.5 TH/MM3 (1.8-7.7) (1.8-7.7) (1.8-7.7) Lymphocytes # (Auto) 1.6 TH/MM3 1.7 TH/MM3 1.2 TH/MM3 (1.0-4.8) (1.0-4.8) (1.0-4.8) Monocytes # (Auto) 1.5 TH/MM3 2.2 TH/MM3 1.7 TH/MM3 (0-0.9) (0-0.9) (0-0.9) Eosinophils # (Auto) 0.3 TH/MM3 0.4 TH/MM3 0.2 TH/MM3 (0-0.4) (0-0.4) (0-0.4) Basophils # (Auto) 0.1 TH/MM3 0.0 TH/MM3 0.1 TH/MM3 (0-0.2) (0-0.2) (0-0.2) CBC Comment AUTO DIFF AUTO DIFF AUTO DIFF Differential Total Cells 100 100 100 Counted Neutrophils % (Manual) 79 % (16-70) 71 % (16-70) 63 % (16-70) Band Neutrophils % 3 % (0-6) 4 % (0-6) 8 % (0-6) Lymphocytes % 3 % (9-44) 9 % (9-44) 12 % (9-44) Monocytes % 13 % (0-8) 9 % (0-8) 10 % (0-8) Eosinophils % 1 % (0-4) 2 % (0-4) 2 % (0-4) Neutrophils # (Manual) 17.4 TH/MM3 15.8 TH/MM3 9.6 TH/MM3 (1.8-7.7) (1.8-7.7) (1.8-7.7) Myelocytes 1 % (0-0) 2 % (0-0) 2 % (0-0) Differential Comment FINAL DIFF FINAL DIFF FINAL DIFF MANUAL MANUAL MANUAL Platelet Estimate NORMAL NORMAL LOW (NORMAL) (NORMAL) (NORMAL) Platelet Morphology Comment NORMAL ENLARGED ENLARGED (NORMAL) (NORMAL) (NORMAL) Red Cell Morphology Comment NORMAL (NORMAL) Sodium Level 145 MEQ/L 146 MEQ/L 151 MEQ/L (136-145) (136-145) (136-145) Potassium Level 3.6 MEQ/L 3.6 MEQ/L 4.2 MEQ/L (3.5-5.1) (3.5-5.1) (3.5-5.1) Chloride Level 115 MEQ/L 116 MEQ/L 122 MEQ/L (98-107) (98-107) (98-107) Carbon Dioxide Level 16.7 MEQ/L 16.8 MEQ/L 17.4 MEQ/L (21.0-32.0) (21.0-32.0) (21.0-32.0) Anion Gap 13 MEQ/L (5-15) 13 MEQ/L (5-15) 12 MEQ/L (5-15) Blood Urea Nitrogen 74 MG/DL (7-18) 82 MG/DL (7-18) 92 MG/DL (7-18) Creatinine 2.21 MG/DL 2.27 MG/DL 2.37 MG/DL (0.60-1.30) (0.60-1.30) (0.60-1.30) Estimat Glomerular Filtration 31 ML/MIN (>89) 30 ML/MIN (>89) 29 ML/MIN (>89) Rate Random Glucose 206 MG/DL 154 MG/DL 132 MG/DL (74-106) (74-106) (74-106) Calcium Level 8.1 MG/DL 8.5 MG/DL 7.7 MG/DL (8.5-10.1) (8.5-10.1) (8.5-10.1) Phosphorus Level 2.0 MG/DL 1.7 MG/DL 2.3 MG/DL (2.5-4.9) (2.5-4.9) (2.5-4.9) Magnesium Level 2.0 MG/DL 2.0 MG/DL (1.5-2.5) (1.5-2.5) Total Bilirubin 1.3 MG/DL 1.9 MG/DL (0.2-1.0) (0.2-1.0) Aspartate Amino Transf 34 U/L (15-37) 33 U/L (15-37) (AST/SGOT) Alanine Aminotransferase 32 U/L (12-78) 29 U/L (12-78) (ALT/SGPT) Alkaline Phosphatase 268 U/L 317 U/L (45-117) (45-117) Total Protein 4.6 GM/DL 4.9 GM/DL (6.4-8.2) (6.4-8.2) Albumin 1.0 GM/DL 1.1 GM/DL (3.4-5.0) (3.4-5.0) Metamyelocytes 3 % (0-1) 3 % (0-1) Random Vancomycin Level 20.1 COMMENT Keratocytes OCC (NORMAL) Test 01/17/16 01/17/16 08:40 09:30 White Blood Count 16.3 TH/MM3 (4.0-11.0) Red Blood Count 2.76 MIL/MM3 (4.50-5.90) Hemoglobin 8.2 GM/DL (13.0-17.0) Hematocrit 24.9 % (39.0-51.0) Mean Corpuscular Volume 90.2 FL (80.0-100.0) Mean Corpuscular Hemoglobin 29.7 PG (27.0-34.0) Mean Corpuscular Hemoglobin 32.9 % Concent (32.0-36.0) Red Cell Distribution Width 17.6 % (11.6-17.2) Platelet Count 166 TH/MM3 (150-450) Mean Platelet Volume 11.1 FL (7.0-11.0) Neutrophils (%) (Auto) 73.6 % (16.0-70.0) Lymphocytes (%) (Auto) 10.0 % (9.0-44.0) Monocytes (%) (Auto) 13.3 % (0.0-8.0) Eosinophils (%) (Auto) 2.3 % (0.0-4.0) Basophils (%) (Auto) 0.8 % (0.0-2.0) Neutrophils # (Auto) 12.0 TH/MM3 (1.8-7.7) Lymphocytes # (Auto) 1.6 TH/MM3 (1.0-4.8) Monocytes # (Auto) 2.2 TH/MM3 (0-0.9) Eosinophils # (Auto) 0.4 TH/MM3 (0-0.4) Basophils # (Auto) 0.1 TH/MM3 (0-0.2) CBC Comment AUTO DIFF Differential Total Cells 100 Counted Neutrophils % (Manual) 66 % (16-70) Band Neutrophils % 3 % (0-6) Lymphocytes % 13 % (9-44) Monocytes % 8 % (0-8) Eosinophils % 1 % (0-4) Neutrophils # (Manual) 12.7 TH/MM3 (1.8-7.7) Metamyelocytes 3 % (0-1) Myelocytes 5 % (0-0) Promyelocytes 1 % (0-0) Differential Comment FINAL DIFF MANUAL Platelet Estimate NORMAL (NORMAL) Platelet Morphology Comment ENLARGED (NORMAL) Keratocytes OCC (NORMAL) Blood Type B POSITIVE Antibody Screen NEGATIVE Crossmatch Leukocyte-Reduced Red Blood Cells Blood Bank Comment Prothrombin Time 12.1 SEC (9.8-11.6) Prothromb Time International 1.1 RATIO Ratio Activated Partial 28.8 SEC Thromboplast Time (24.3-30.1) . Result Diagram: 01/17/16 0840 01/17/16 0342 Imaging Last Impressions Chest X-Ray 01/16/16 0600 Signed Impressions: Service Date/Time: Saturday, January 16, 2016 03:01 - CONCLUSION: No appreciable change. Freddy Connor MD Abdomen/Pelvis CT 01/06/16 0000 Signed Impressions: Service Date/Time: Wednesday, January 06, 2016 22:07 - CONCLUSION: 1. Over the last day there is development of a large mass in the left upper quadrant measuring up to 18 x 13 cm which appears to be associated with the stomach. The mass is characterized by somewhat concentric areas of decreased and increased attenuation with multiple locules of air. Primary differential diagnosis is hemorrhage into the gastric wall with gastric pneumatosis and possibly gastric ischemia. Gastrostomy is again noted anteriorly. 2. Remainder the exam is relatively stable with drainage tube left upper quadrant, splenectomy, bilateral effusions, feeding jejunostomy and drain within the pelvis. There is also diffuse anasarca and nonobstructing renal calculi. Nomi Falcon MD Chest CT 01/05/16 0000 Signed Impressions: Service Date/Time: Tuesday, January 05, 2016 23:15 - CONCLUSION: 1. Persistent left lower lobar consolidation. Improved consolidative infiltrates in the right lower lung. 2. Interval increase size bilateral pleural effusions , left greater than right. Osmar Alegria MD Celiac/Hepatic Arteriogram 12/27/15 0000 Signed Impressions: Service Date/Time: December 13:41 - CONCLUSION: 1. No active GI bleed identified. Robert Mckinney MD Abdomen X-Ray 12/18/15 0000 Signed Impressions: Service Date/Time: Friday, December 18, 2015 16:05 - CONCLUSION: Feeding tube tip is at the gastric antrum. Arnaldo Elias MD Head CT 12/02/15 1013 Signed Impressions: Service Date/Time: Wednesday, December 02, 2015 11:00 - CONCLUSION: 1. No intracranial abnormality is seen. 2. Air-fluid level in the right maxillary sinus. Arnaldo Reyes MD . Procedures 12/02/15: Intubated 12/02/15: NG tube placed 12/02/15: Right subclavian central line placed 12/14/15: Left IJ central line placement BEV PEG tube Ileostomy 12/28/15: Tracheostomy 12/30/15: Right subclavian central venous line placed 01/05/16: Right axillary arterial line placement 01/05/16: Right IJ central line placement 01/05/16: Bronchoscopy 01/17/16: EGD . . . 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 Probable causes of plain include multiple surgeries, invasive lines ( central line, PIV), Sandoval, BEV drains, ostomy, NG tube, tracheostomy, immobility , bedbound status etc. Patient receives oxycodone 20mg PO every 4 hours ATC , acetaminophen 650 mg PO q6 hours ATC and Duragesic patch 75 g every 72 hours. Additionally PRN hydromorphone 2mg IV is available every 2 hours, patient is using sparingly (1 doses of hydromorphone were administered in the past 24 hours.) . (2) Malnutrition 0-10 Scale: Unable to quantify (3) Encephalopathy 0-10 Scale: Unable to quantify Comment: Patient remains encephalopathic. Pertinent Non-Medical Issues Psychosocial: Spiritual: Legal: Ethical issues impacting care: Important Contacts Gopi Smith, spouse: [phone] Kezia Starks, daughter: [phone] . . Code Status: Full Code Plan * FULL CODE * Decision-making: The patient is currently not capacitated to participate in decisions related to medical treatment goals. There is no designated health care surrogate. Per [place] statutes, in the absence of written advanced directives healthcare proxy falls to the patient's . HCP: GOPI SMITH ( ). * Goals: GOALS REMAIN AGGRESSIVE. However, patient's daughter and agree the patient would not want to be kept alive on machines. They do not feel he is at the point where they need to consider stopping care because he has "gotten through so much are ready". * Collaborated with correctional case manager, Isa Dey. If the patient survives this hospitalization, he will require placement at a SNF for rehabilitation. Patient is self pay, medicaid/SSI pending. * Symptom managementpain: Patient has a history of chronic pain, takes methadone and MS Contin at home. Probable causes of plain include multiple surgeries, invasive lines (central line, PIV), Sandoval, BEV drains, ostomy, NG tube , tracheostomy, immobility, bedbound status etc. Patient receives oxycodone 20mg PO every 4 hours ATC , acetaminophen 650 mg PO q6 hours ATC and Duragesic patch 75 g every 72 hours. Additionally PRN hydromorphone 2mg IV is available every 2 hours, patient is using sparingly (1 doses of hydromorphone were administered in the past 24 hours.). Palliative care will monitor PRN requirements and make adjustments as indicated. * Symptom managementmalnutrition. TF on hold pending EGD. 01/16/16: Protein 4.9, Albumin 1.1. Bilateral lower extremities with atrophy, muscle wasting. Continue to monitor, no recommendations at this time. * Spoke with SARA Corrales. GI was re-consulted for acute drop in Hgb this morning. H&H 6.6/20.6, repeat H&H of 8.2/24.9. Patient had bilious colored drainage from NGT yesterday, drainage had a brownish/coffee ground appearance this morning. Liquid brown stool mixed with solid stool in ostomy bag. Bilious secretions were noted from J tube when the TF was turned off. EGD this afternoon showed gastric ulcers, gastritis, thickened gastric fold- no evidence of active bleeding. Biopsy pending. * Palliative care will continue to follow this patient throughout his hospitalization to establish trust, assist with symptom management and clarification of medical treatment goals. Attestation To help prompt me to consider important information that might be impacting today's encounter and assessment, information from prior notes written by myself or my colleagues may have been "brought forward" into today's note. My signature on this note, however, is an attestation that I personally performed the exam, history, and/or decision-making noted today, and, unless otherwise indicated, the interactions with patient, family, and staff as well as the review of records all occurred today. I also attest that the listed assessment and stated plan reflect my best clinical judgment today based on the combination of historical information, prior notes, and today's exam/ interactions. When time spent is documented, it refers only to time spent today by the signer, or if indicated, combined time spent today by collaborating physician/nurse practitioner. . Leah Pop Jan 17, 2016 17:06
[2016-01-17 17:58] LABS: REVIEW FLAG FINAL
[2016-01-17 22:26] LABS: HEMATOCRIT 24.5 % (39.0-51.0); REVIEW FLAG FINAL
[2016-01-18] VITALS (13 sets, daily range): BP systolic 119–139; BP diastolic 71–82; PULSE 95–111; RESP 11–17; TEMP 97.8–98.7; O2SAT 97–100
[2016-01-18] MEDS: oxyCODONE HCL ORAL CONC 20 MG/ML SYRINGE PO SCH ×6 (01:47→20:19)
[2016-01-18] MEDS: CHLORHEXIDINE GLUCONATE 2 % 1 PACK (2 CLOTHS) TOP SCH (01:49)
[2016-01-18] MEDS: RESP: ALBUTEROL 2.5 MG/IPRATROPIUM 0.5 MG NEB (SCH) NEB ×4 (03:29→19:37)
[2016-01-18] MEDS: PANTOPRAZOLE INJ 80 MG in SODIUM CHLORIDE 0.9% INJ 100 ML IV SCH (04:34)
[2016-01-18] MEDS: METOPROLOL TARTRATE 5 MG/5 ML VIAL IV PUSH SCH ×3 (05:50→20:19)
[2016-01-18] MEDS: PANTOPRAZOLE SODIUM 40 MG VIAL IV PUSH SCH ×2 (05:50→18:00)
[2016-01-18] MEDS: INSULIN ASPART SUPPLEMENTAL SCALE SQ SCH ×4 (06:00→18:00)
[2016-01-18] MEDS: CHLORHEXIDINE 0.12% (ORAL KIT) 15 ML CUP MT SCH ×2 (08:00→20:18)
[2016-01-18 08:11] LABS: AUTOMATED NEUTROPHIL # 13.1 TH/MM3 (1.8-7.7); BASOPHIL % 0.2 % (0.0-2.0); EOSINOPHIL # 0.2 TH/MM3 (0-0.4); EOSINOPHIL % 1.3 % (0.0-4.0); HEMATOCRIT 24.9 % (39.0-51.0); LYMPH % 8.9 % (9.0-44.0); LYMPHOCYTE # 1.5 TH/MM3 (1.0-4.8); MEAN CELL VOLUME 92.9 FL (80.0-100.0); MEAN CORPUSCULAR HEMOGLOBIN 29.9 PG (27.0-34.0); MEAN CORPUSCULAR HGB CONC 32.2 % (32.0-36.0); MONO % 14.4 % (0.0-8.0); NEUT % 75.2 % (16.0-70.0); PLATELET COUNT 160 TH/MM3 (150-450); RED BLOOD COUNT 2.68 MIL/MM3 (4.50-5.90); RED CELL DISTRIBUTION WIDTH 18.4 % (11.6-17.2); WHITE BLOOD COUNT 17.4 TH/MM3 (4.0-11.0)
[2016-01-18 08:17] LABS: HEMO FLAGS AUTO DIFF
[2016-01-18 08:48] LABS: ALKALINE PHOSPHATASE 239 U/L (45-117); ALT (GPT) 26 U/L (12-78); ANION GAP 13 MEQ/L (5-15); AST (GOT) 37 U/L (15-37); BICARBONATE 16.6 MEQ/L (21.0-32.0); BLOOD UREA NITROGEN 94 MG/DL (7-18); CHLORIDE 118 MEQ/L (98-107); GLOMERULAR FILTRATION RATE 29 ML/MIN (>89); POTASSIUM 4.6 MEQ/L (3.5-5.1); SODIUM (NA) 148 MEQ/L (136-145); TOTAL BILIRUBIN ADULT 1.9 MG/DL (0.2-1.0)
[2016-01-18] MEDS: FERROUS SULFATE 300 MG /5ML UDC TUBE SCH ×2 (09:00→20:18)
[2016-01-18] MEDS: predniSONE 10 MG TAB NG SCH (09:00)
[2016-01-18] MEDS: POVIDONE IODINE 10% OINT 30 GM TUBE TOPICAL SCH (09:00)
[2016-01-18] MEDS: NEOMYCIN/POLYMYXIN/BACITRACIN OINT 15 GM TUBE TOPICAL SCH ×2 (09:00→20:19)
[2016-01-18 09:09] LABS: BANDS 5 % (0-6); CORRECTED NUCLEATED RBC 1 /100 WBC (0-0); METAMYELOCYTES 4 % (0-1); NEUTROPHIL # MANUAL DIFF 13.2 TH/MM3 (1.8-7.7); POLYS (SEG NEUTROPHILS) 67 % (16-70); WBC DIFF SAMPLE 100
[2016-01-18 09:10] LABS: PLATELET ESTIMATE SMEAR NORMAL (NORMAL); PLATELET MORPHOLOGY NORMAL (NORMAL); SCAN/DIFF FINAL DIFF MANUAL
--- NOTE | 2016-01-18 11:49 | HHI.PR ---
Subjective Subjective Notes Resting in bed Eyes open; follows commands Objective Vitals/I&O Vital Signs Date Time Temp Pulse Resp B/P Pulse Ox O2 Delivery O2 Flow Rate FiO2 01/18/16 09:10 100 30 01/18/16 06:00 111 01/18/16 04:00 97.9 14 119/72 Labs Laboratory Tests Test 01/17/16 01/17/16 01/18/16 16:26 21:53 07:54 Hemoglobin 7.9 7.9 8.0 Hematocrit 24.0 24.5 24.9 White Blood Count 17.4 Red Blood Count 2.68 Mean Corpuscular Volume 92.9 Mean Corpuscular Hemoglobin 29.9 Mean Corpuscular Hemoglobin 32.2 Concent Red Cell Distribution Width 18.4 Platelet Count 160 Mean Platelet Volume 11.3 Neutrophils (%) (Auto) 75.2 Lymphocytes (%) (Auto) 8.9 Monocytes (%) (Auto) 14.4 Eosinophils (%) (Auto) 1.3 Basophils (%) (Auto) 0.2 Neutrophils # (Auto) 13.1 Lymphocytes # (Auto) 1.5 Monocytes # (Auto) 2.5 Eosinophils # (Auto) 0.2 Basophils # (Auto) 0.0 CBC Comment AUTO DIFF Differential Total Cells 100 Counted Neutrophils % (Manual) 67 Band Neutrophils % 5 Lymphocytes % 8 Monocytes % 16 Neutrophils # (Manual) 13.2 Metamyelocytes 4 Nucleated Red Blood Cells 1 Differential Comment FINAL DIFF MANUAL Platelet Estimate NORMAL Platelet Morphology Comment NORMAL Sodium Level 148 Potassium Level 4.6 Chloride Level 118 Carbon Dioxide Level 16.6 Anion Gap 13 Blood Urea Nitrogen 94 Creatinine 2.38 Estimat Glomerular Filtration 29 Rate Random Glucose 91 Calcium Level 8.3 Phosphorus Level 4.9 Total Bilirubin 1.9 Aspartate Amino Transf 37 (AST/SGOT) Alanine Aminotransferase 26 (ALT/SGPT) Alkaline Phosphatase 239 Total Protein 4.6 Albumin 1.1 Date/Time Procedure Status Source Growth 01/13/16 14:45 Urine Culture - Final Complete Urine Catheterized Urine NO GROWTH IN 48 HOURS. 01/13/16 14:40 Gram Stain - Final Complete Sputum Endotracheal 01/13/16 14:40 Sputum Culture - Final Complete Sputum Endotracheal HEAVY GROWTH NORMAL RESPIRATORY [facility] Radiology Last Impressions Chest X-Ray 12/28/15 0000 Signed Impressions: Service Date/Time: Monday, December 28, 2015 14:23 - CONCLUSION: Large left pleural effusion and left lung base consolidation. Freddy Connor MD Abdomen/Pelvis CT 12/19/15 0000 Signed Impressions: Service Date/Time: Saturday, December 19, 2015 10:57 - CONCLUSION: 1. Adjacent volume pneumoperitoneum is observed consistent with perforation of a hollow viscus. This is presumably colonic in origin due to the diffuse inflammatory process involving the colon. I do not clearly identify the source of the pneumoperitoneum however. There is mild dilatation of the small bowel likely an ileus in nature. A significant volume of ascitic fluid is noted. 2. Bibasilar atelectasis and bilateral pleural effusions. 3. Small pericardial effusion. 4. Small bilateral nonobstructing renal calculi. 5. I spoke with Dr. Sanchez concerning the findings. Osmar Chavez Jr., MD Abdomen X-Ray 12/18/15 0000 Signed Impressions: Service Date/Time: Friday, December 18, 2015 16:05 - CONCLUSION: Feeding tube tip is at the gastric antrum. Arnaldo Elias MD Chest CT 12/14/15 0000 Signed Impressions: Service Date/Time: Monday, December 14, 2015 06:12 - CONCLUSION: 1. Cardiomegaly with bilateral consolidation, likely CHF. Pneumonia cannot be excluded. 2. Small right pleural effusion. Wojciech Lockhart MD Head CT 12/02/15 1013 Signed Impressions: Service Date/Time: Wednesday, December 02, 2015 11:00 - CONCLUSION: 1. No intracranial abnormality is seen. 2. Air-fluid level in the right maxillary sinus. Arnaldo Reyes MD Cardiovascular: Regular Lungs: Clear Abdomen: Other Narrative Exam RIGHT arm with wound vac on Abd: Midline incision--- packing removed and replaced to superior and inferior portion of incision; RIGHT BEV with serous drainage; LEFT with darker sedimentary drainage; ileostomy with stool A/P Problem List: (1) Dependent on ventilator (2) Open wound of abdomen (3) Ileostomy in place (4) Jejunostomy tube present (5) S/P total colectomy (6) Acute colitis (7) Gastrostomy tube in place Assessment and Plan 55 year old male s/p ex lap; s/p colectomy; G/J tube placement and would vac change -EGD yesterday ---gastritis and gastric ulcer visulaed -Start trickle feed -Hmg 8 today -Primapore dressing BID and PRN to midline incision ----packing to superior and inferior areas of incision -Monitor BEV output and drainage color Attending Statement I have seen the patient stable hh stable s/p egd with ulcer no bleeding Attestation The exam, history, and the medical decision-making described in the above note were completed with the assistance of the mid-level provider. I reviewed and agree with the findings presented. I attest that I had a [id number] encounter with the patient on the same day, and personally performed and documented my assessment and findings in the medical record. Problem Qualifiers (1) Open wound of abdomen: Qualified Code: S31.109D - Open wound of abdomen, subsequent encounter Lurdes Felix Jan 18, 2016 11:49 Bebo Verdin MD Jan 21, 2016 21:15
[2016-01-18] MEDS: REMOVE OLD PATCH TD SCH (12:00)
[2016-01-18] MEDS: FLUCONAZOLE 400 MG PREMIX BAG 200 ML IV SCH (12:00)
[2016-01-18] MEDS: fentaNYL 75 MCG/HR PATCH TD SCH (12:00)
--- NOTE | 2016-01-18 14:23 | HHI.CCPN ---
Subjective Remarks/Hospital Course 55-year-old male brought by EMS with altered mental status. He has been confused for 2 days but this morning has been the worst. He has history of chronic opiate medications including methadone and morphine that he takes for pain management and hence they gave him Narcan IV which brought the GCS up to 13. The blood glucose was 74. He has open wounds from his right upper and bilateral lower extremities. He has history of hepatitis C. Last week he was pealing and eating shrimps. Bedside blood sugar was 76 in the ER. He was tachycardic in 1 teens and was intubated in the ED for airway protection. Admitted to ICU with sepsis due to Staph Aureus hand infection and E. Coli bacteriemia. 12/05 Patient remains sedated with Fentanyl and intubated. On Levophed 3 mics, Vasopressin 0.03 mics and Bicarb drip. T:99.8 TF placed on hold OGT to LIWS last night - gastric drainage 525ml overnight. 12/06 Patient is sedated with Fentanyl and intubated, On Levophed 3 mics, off vasopressin. Gastric output 400ml in 24 hrs. KUB abdomen yesterday mildly distended colon otherwise non specific KUB. 12/07 Patient is off sedation remains intubated tolerated CPAP for most day yesterday. Afebrile. on no drips, tolerating tube feeds. 12/08 Patient went to OR yesterday for debridement and irrigation of right forearm and wound VAC placement. Given 2U PRBC and 2u PLT yesterday and currently receiving 1of 2 u additional PRBC. Hgb 7.7, PLT 43 this morning. Patient also started on pressors now on Levophed 10 mics. Vasopressin 0.04 mics. On no sedation. 12/09 Patient remains intubated off pressors, Afebrile. Tolerating tube feeds. Afebrile. 12/10 Patient is sedated with Fentanyl and intubated. Awake and follows commands off sedation. Afebrile. 12/11 Patient had ?SVT overnight given Lopressor 2.5mg IV x1, Remains intubated and sedated with Fentanyl. Afebrile. Tolerating TF. 12/12 Patient spoked fever last night with T: 101.5, sedated with Fentanyl and intubated. 12/13 Patient had an episode of desaturation overnight required increase FIO2/ PEE now on ACV with RR 14, TV 550, PEEP: 12, FIO2 60% with sats 100% CT chest performed overnight showed b/l consolidation and small pleural effusion. Had T: 100.0 last night. 12/14 Tolerating PS 15/CPAP 10 FiO2 40% with rSBI 38, weaning. . Awake and alert , following commands. Hypotensive overnight and levophed restarted up to 12 mcg/ min. Nurse has been weaning throughout the day. Suspected adrenal insufficiency as he was on prednisone as outpatient for gout and has not been on stress dose steroids. Given decadron. 12/15 Transfused 1 unit PRBC for Hgb 7.0 yesterday, 1 unit PRBC for Hgb 6.6 today and now Hgb 8.3. Does not clinically have e/o active GI bleeding and wound vac output nonbloody. Stool 1500 output, C diff negative. No abdominal pain. Remains Awake and alert, remained on CPAP 10/5 last night and is now tolerating CPAP 5/5. 12/16: Extubated yesterday tolerating well. Breathing comfortably. Able to follow commands. UO 1.8 L in 24 hours. Na slightly increased to 153. 12/17: Significantly worse this AM. WBC up to 28 from 16. Hgb 5.2 from 7.9. tachycardic. pale this AM. states he feels tired. Continues on BiPAP. Plan for debridement of his arms today. LIJ CVL does not have any signs of overt infection. 12/18: Blood cell count continues to rise today to 30 from 28. Required 1 unit of blood for hemoglobin of 6.6 which improved to 7.7 this morning. However, patient remains tachycardic in the 120s and significantly pale. CT abdomen and pelvis ordered and pending. Tachypneic with respiratory rate in the 30s. Only small amount of dark tarry stool yesterday with approximately 300 cc of stool output. C. difficile toxin negative 3. After discussion with infectious disease, restart vancomycin, cefepime, Flagyl, micafungin. Horn cultures are pending. Per discussion with GI, will not scope as endoscopy is high risk given his tenuous respiratory status this point. Slightly worse hypernatremia as well as worsening acute kidney injury this morning. 12/19: POD 1 s/p ex-lap, washout for perforated ascending colon with extended right hemicolectomy, primary ileocolic anastamosis, open abdomen, septic shock, acute hypoxic and hypercarbic respiratory failure. Significantly critically ill overnight: required 6L ivf resuscitation, 1 unit prbc, norepinephrine, vasopressin, stress dose hydrocortisone. This morning, remains on high-dose vasopressors. still has large volume ivf requirement. Significant SIRS response. Vent requirements increasing with all this volume resuscitation, PEEP up to 10. He remains critically ill, and although I do believe we have surgical source control, I anticipate he will continue to clinically decline before he starts to make improvements. 12/20: Off pressors. follows commands on sedation holiday. +11L over last 3 days during acute illness, +22L since admission. We are going to have to get some of this volume back before we are able to close him given his severe anasarca. 12/21: Taken back to the OR yesterday afternoon for washout and completion colectomy. Postoperatively was significantly under resuscitated as well as had ongoing active oozing. Patient was coagulopathy. The patient was in distributive and hemorrhagic shock. The patient was given multiple units of blood products overnight. Patient was thrombocytopenic, hypofibrinogenemic, coagulopathic. Given significant volume of blood product resuscitation: 24h blood products: 13 prbc 8 ffp 2 plt 1 10-pack cryo This morning continues to have significant amount of bright red output out of his BEV and wound VAC, approximately 500 cc an hour out of his wound VAC, and approximately 75 an mils every 10 minutes out of a BEV. I discussed with surgery and we will correct his coagulopathy and plan to go back to the OR for exploration early this afternoon. 12/22: Clinically starting to improve hemodynamically. off vasopressors. Net+ 26L. CVP rising to 14. UOP adequate. Hgb 7 this AM. 12/23 Seen postop. Hypertensive, BP improved with additional pain medicine. Remains net positive but urine output excellent 3L in 24 hours. Remains on Lasix gtt. went to OR today status post wound VAC change and partial closure 12/24: Fascia was closed yesterday. Wound Vac in place. Remains sedated. -2L negative balance, but with increasing BUN/creat. Discontinue Bumex infusion, start scheduled Bumex 2 mg IV every 12 with IV albumin. 12/25: Overnight became hypotensive requiring Levophed to be restarted. Hemoglobin dropped to 4.1. Noted to have bloody drainage from G-tube and dorsal ileostomy with black stool output 12/26: s/p EGD yesterday-2 gastric ulcers bleeding, stomach a significant part had decreased discoloration indicating probable ischemia. s/p epi injection and cauterization. Continues to have coffee ground G tube output, black tarry Ileostomy output. Hemoglobin down to 6.4 getting 2 units of PRBC. GI recent recommending intervention radiology consult. 12/27: For trach today. Meds ordered. Hgb decline consistent with recent transfusions and senescent cells. 12/28: Trach clean, dry. Start SBTs. Check prealbumin. Continue TPN. 12/29: Looks in direction of voice. I have not seen more purposeful reactions. Line > 12 days old, replace today. Prealbumin 20 - good response to TPN. 12/30: Remains vented, encephalopathic, puss like drainage from left hand, WBC increased 01/01: no significant changes. continues to remain critically ill with minimal improvements over the last week. abdomen closed. still total body volume overloaded. 01/02: more awake today than yesterday. continues to be critically ill with minimal improvements overall. need to look towards placement. -900 yesterday. 01/03: up in chair yesterday. tolerated short run of SBT 15/5/40%. net euvolemic. wbc downtrending. 01/04: wbc slightly uptrended 33 from 30, more acidotic on BMP (14 from 20). Also spiking fevers to 102.3 despite tylenol. continues on broad spectrum abx. yesterday's cxr had what may be a new LLL infiltrate. today, though, he is following commands and more awake and alert. 01/05: LLL pna clinically and based on bronch. CT c/a/p done last night without any significant intra-abdominal change. small left pleural effusion which appears simple in nature, and LLL consolidation. ID broadened abx. today , wbc downtrending. culture data pending. Hgb 7 this AM. 01/06: Underwent exploratory laparotomy last night with findings of bleeding gastric ulcer which was oversewn by Dr. Verdin abdomen left open with wound VAC in place. Received 3 units PRBCs overnight. Remains on Wesley-Synephrine drip this morning for hypotension. Remains sedated, on mechanical ventilation. 01/07: Remains sedated, on mechanical ventilation. For abdominal incision site closure today. Significant positive fluid balance over the last 2 days. Off pressors currently. Lasix to mobilize fluid. 01/08: Remains sedated, on mechanical ventilation via tracheostomy. Underwent abdominal incision site closure this morning. Remains off pressors. Anasarca noted. Blood cultures from 01/04 growing Nava parapsilosis. 01/09: Drowsy/sedated, arousable, on mechanical ventilation via tracheostomy. TPN started yesterday. To be started on J-tube feeds per discussion with surgery 01/10: Sedated, arousable, on mechanical ventilation via tracheostomy. Remains on TPN. J-tube feeds being started today. 01/11: Was on T piece yesterday and rested on C Pap overnight. On TPN. Advanced J-tube feeds to 20 cc an hour today. Attempt T piece as tolerated. 01/12: Awake, tracks with his eyes. On C Pap overnight. Tolerated T piece during daytime yesterday. 01/13: Awake and alert. Was on T piece all day yesterday and was placed back on C Pap at 1:45 AM this morning. Does not appear to be in any acute distress. Tolerating J-tube feeds at 20 cc per hour. 01/14: Drowsy, easily arousable. Was on T piece all day yesterday and rested on C Pap at night. Tolerating J-tube feeds at 40 cc an hour with goal of 60 cc per hour. On TPN which will be discontinued after current bag. BEV drain with cloudy drainage. 01/15 Was placed back on ACV yesterday around 9 am due to tachypnea and remained on ACV overnight. Now on CPAP 10/ and tolerating. BEV in lower abdomen had purulent output yesterday but RN states looks better today. Tolerating tube feeds, stool in ostomy. Off TPN. Removing CVL. Subjective: 01/16 Hgb 6.6 on CBC this morning, lab draw, repeat pending. Tachycardia persists but otherwise no hemodynamic change. The NGT output yesterday was bilious, today brown/slight coffee grounds but mostly clear. No blood from BEV' s.Has been tolerating jejunal tube feeds, placed on hold for now. Has been tolerating CPAP 10 with RSBI 10s. GI/General surgery updated. 01/17 Hemoglobin 8.0. EGD performed yesterday showing gastric ulcers with no active bleeding. Abdominal wound dressing change today. Plan to begin trickle feeds today per general surgery. Objective Vital Signs Date Time Temp Pulse Resp B/P Pulse Ox O2 Delivery O2 Flow Rate FiO2 01/18/16 12:00 97 T-piece 4.00 28 01/18/16 08:00 97.9 108 17 125/71 Intake and Output 01/17/16 01/17/16 01/18/16 08:00 16:00 00:00 Intake Total 594 ml 882 ml 435 ml Output Total 1260 ml 980 ml 435 ml Balance -666 ml -98 ml 0 ml Result Diagram: 01/18/16 0754 01/18/16 0754 Imaging Last 48 hours Impressions Chest X-Ray 01/07/16 0000 Signed Impressions: Service Date/Time: Thursday, January 07, 2016 04:23 - CONCLUSION: Worsening consolidation or atelectasis at the left mid and lower lung. Some degree of left effusion may also be contributing to this. Arnaldo Reyes MD Chest X-Ray 01/06/16 0000 Signed Impressions: Service Date/Time: Wednesday, January 06, 2016 19:46 - CONCLUSION: 1. Basilar airspace disease improved from January 04. Tracheostomy and right central line in satisfactory position. Nomi Falcon MD Abdomen/Pelvis CT 01/06/16 0000 Signed Impressions: Service Date/Time: Wednesday, January 06, 2016 22:07 - CONCLUSION: 1. Over the last day there is development of a large mass in the left upper quadrant measuring up to 18 x 13 cm which appears to be associated with the stomach. The mass is characterized by somewhat concentric areas of decreased and increased attenuation with multiple locules of air. Primary differential diagnosis is hemorrhage into the gastric wall with gastric pneumatosis and possibly gastric ischemia. Gastrostomy is again noted anteriorly. 2. Remainder the exam is relatively stable with drainage tube left upper quadrant, splenectomy, bilateral effusions, feeding jejunostomy and drain within the pelvis. There is also diffuse anasarca and nonobstructing renal calculi. Nomi Falcon MD Last Impressions Chest X-Ray 12/17/15 0600 Signed Impressions: Service Date/Time: Thursday, December 17, 2015 03:25 - CONCLUSION: Persistent left lower lobe consolidation. Osmar Alegria MD Chest CT 12/14/15 0000 Signed Impressions: Service Date/Time: Monday, December 14, 2015 06:12 - CONCLUSION: 1. Cardiomegaly with bilateral consolidation, likely CHF. Pneumonia cannot be excluded. 2. Small right pleural effusion. Wojciech Lockhart MD Abdomen X-Ray 12/06/15 0000 Signed Impressions: Service Date/Time: November 09:53 - CONCLUSION: Nonspecific KUB. Air is seen within a mildly distended colon but contrast is clearly seen in the rectum. Arnaldo Reyes MD Abdomen/Pelvis CT 12/04/15 0000 Signed Impressions: Service Date/Time: Friday, December 04, 2015 16:24 - CONCLUSION: 1. Mildly distended small bowel in the mid and lower abdomen. Contrast is clearly seen extending into the distal small bowel and ascending colon so a complete obstruction is not seen. A transition point is not seen. This pattern likely represents an ileus versus a partial obstruction. 2. Multiple nonobstructing renal stones. 3. Abnormal appearance of the spleen which appears to represent a splenule. It could be correlated if the patient has had either primary splenic removal or splenic injury and this is what is either left of the spleen or a developing splenule. This is likely of no significance. 4. Mild ascites. 5. Increased density within the gallbladder representing either tumefactive sludge or noncalcified stones. 6. Mild bilateral pleural effusions with prominent areas of lower lobe atelectasis or consolidation at the bases bilaterally. 7. Subacute to chronic bilateral rib fractures and multiple compression fractures in the lower thoracic and lumbar spine as described above. The patient does have a prior CT examination from 08/26/2014. All the compression deformities described above are new when compared to that scan. Arnaldo Reyes MD Head CT 12/02/15 1013 Signed Impressions: Service Date/Time: Wednesday, December 02, 2015 11:00 - CONCLUSION: 1. No intracranial abnormality is seen. 2. Air-fluid level in the right maxillary sinus. Arnaldo Reyes MD Objective Remarks Drips: None Jevity 1.5 @ 60 mL per hour GENERAL: Middle-aged chronically critically ill-appearing male, lying in bed, trached. HEENT: NCAT. mucous membranes moist. NECK: trach in place. obese neck. difficult to assess JVD. right IJ triple lumen catheter has been removed and dressing is in place c/d/i. RESPIRATORY: CPAP as tolerated, on 11/20 with RSBI 10s. Breath sounds present bilaterally, scattered rhonchi, diminished left base, no wheezing . CARDIOVASCULAR: regular, tachycardic ~104-107. Sinus tach on monitor. No murmurs rubs or gallops. GASTROINTESTINAL: J tube in place with tube feeds running (now placed on hold) L side BEV drain in mid lower abdomen with with more serous appearing output, serous drainage around it. L side BEV with some serous/sedimentary drainage. Ostomy with soft stool, no melena. Hypoactive bowel sounds. MUSCULOSKELETAL: Generalized anasarca, doughy pitting edema 3+ bilateral feet. Multiple open wounds in the lower extremity, without exudate (observed on 01/15 , today have been wrapped in gauze) RUE - with wound vac in place over right arm with mostly serous, very slightly sanginous output. L upper extremity dressing in place; L forearm. NEURO: Awake, opens eyes spontaneously, makes eye contact, nods. Moves bilateral feet to command. 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 - fentanyl patch 75mcg/h q3d for long acting pain control. - Liquid tylenol 650mg per tube q6h in view of increasing bilirubin discontinued - Dilaudid 2mg iv q4h prn for breakthrough pain. - oxycodone 20mg per tube q4h scheduled. Respiratory Acute respiratory failure-extubated 12/16/15, reintubated for surgery 12/18 Acute hypoxic and hypercarbic respiratory failure Acute healthcare associated pneumonia- resolved NIGEL on home CPAP - Perc Tracheostomy 12/27 (Dr. Miller) - Vent bundle. Head of bed at 30 degrees. Duoneb q6h and prn. - was reportedly on C Pap/pressure support since 01/09, T piece trials since until placed on ACV 9 am on 01/14 and overnight that night. Now back on CPAP this morning 11/20 and appears can be weaned further from respiratory standpoint, but will address anemia first as he may need sedation/EGD. --CXR 01/15 - L pleural effusion. Will perform bedside u/s and consider thoracentesis. CV Hemorrhagic shock- resolved Septic Shock- resolved Volume overload - keep map > 65 mmHg. - Cortisol level 14 on 12/14 - Stopped stress dose hydrocortisone on 01/12 and started prednisone 10 mg daily 01/13. If hemodynamics changing or if returns to OR would need stress dose hydrocortisone again. - Echo 12/07 EF 65-70%, grade I diastolic dysfunction -On Metoprolol 2.5 mg IV every 8 hours FENRenal: DEIRDRE Hypernatremia Hypophosphatemia Anasarca, third spacing. - Strict intake output, monitor and replete electrolytes, follow BUN/creatinine. - Hypernatremia and creatinine worsening on Lasix. Will hold lasix today and hold scheduled KCL 40 meQ tube daily. D5 @ 50 milliliters per hour. -Remains hypophosphatemic despite Kphos 500q6 x 4 doses. Will give Kphos 15 mmol IV today. -BMP/phos labs in a.m. /GI Acute GIB, hemorrhagic shock (resolved, now with recurrent anemia but not shock) Perforated right colon with colitis s/p ex-lap, extended right hemicolectomy with primary ileocolic anastamosis, washout, open abdomen (12/18) s/p Ex lap 01/05 for bleeding gastric ulcer Acute protein calorie malnutrition- severe - Start protonix drip. - EGD 12/26/15 showed 2 large gastric ulcers with active bleeding status post epinephrine infusion and cauterization - OR on 12/24 with Removal of VAC, washout, pancreatic drain and pelvic drain placement, gastrostomy, feeding jejunostomy and closure of abdomen with application of VAC device in the subcutaneous tissue. -to OR 01/05 with GI bleeding and hemorrhagic shock. Had bleeding gastric ulcer and pneumatosis of stomach. Underwent gastrotomy with ligation of gastric ulcer , lysis of adhesions, wound VAC placement -Prior TPN stopped 01/01. Again on TPN 01/08-01/14. - Has been tolerating J tube feeds with Jevity 1.5 at 60cc/hr (per nutrition recs). Now held in order to evaluate for bleeding. May need to place PICC and resume TPN. -Updated General surgery/GI. -Resume trickle feeds Jevity 1.510 cc an hour Heme: Acute Anemia secondary to acute blood loss Thrombocytopenia Hypofibrinogenemia secondary to consumption and acute blood loss Coagulopathy secondary to consumption and acute blood loss --monitor CBC --Hep PLT ab negative on 12/03 - Ferrous Sulfate bid - transfused 3 units PRBCs 01/05- -Hgb 6.6 from 9.2. Repeat CBC pending. Transfuse prn symptoms or hgb <7. ID Severe sepsis Necrotizing Fascitis - MSSA on wound culture 12/07. Ecoli bacteremia 12/01 MSSA bacteremia 12/05. Cleared on f/u blood culture 12/07, 12/12. Candidemia (blood culture 01/04 with Nava parapsilosis) Sepsis of Intra-abdominal origin. C. difficile toxic megacolon --Debridement 12/01 p.m at bedside by Dr Pedro and Dr. Hartmann --R hand, forearm and olecranon bursa I and D and Wound vac 12/07 Dr Chavez. -- ABX per ID: IV cefepime 12/17 #31,flagyl IV 12/17 #31 Fluconazole 01/09#8, Vancomycin 01/04 #13 (trough 21 on 01/05). Micafungin stopped per ID 01/08. Amphotericin B started by ID on 01/08 and stopped 01/09. Nava parapsilosis in blood culture from 01/04 most likely from an intra- abdominal source(central line was changed on 01/04). BEV drain with cloudy drainage 01/14. Continued intra-abdominal infection on Abx per ID. General surgery following. Last set of blood cultures have been negative. Plan Repeat CT Abd/pelvis if clinically worsening or sepsis worsens. Opthalm consult requested by Dr. Becerra in v/o candidemia to eval for endopthalmitis. Seen by Dr. Wu 01/13 and no evidence of endogenous endophthalmitis Wound care following for leg wounds. --12/17 blood cultures: NGTD 12/17 central line culture: NGTD 12/17 urine cultures: NGTD 12/17 sputum cultures: NGTD C. difficile toxin 12/17: Negative (3rd negative toxin screen) -01/04 Blood culture with nava parapsilosis 01/04: horn culture, bronch with BAL, 01/04: CT chest/abd/pelvis without contrast: LLL consolidation, otherwise unchanged. 01/04: clinically LLL VAP. 01/08 Blood cultures: no growth 01/09 blood culture peripheral - NGTD 01/12 sputum cutlure - neg 01/12 - urine culture NGTD. --ID Dr. Becerra Endocrine: Hyperglycemia of Critical Illness Diabetes - off Insulin drip - Levemir BID on hold. - On low-dose insulin sliding scale with bedside glucose every 6 hours. Glucose at target since off TPN. - Prednisone 10mg po daily. slow taper started however pt back on pressors after Elap on 01/06 so started hydrocortisone 50 mg IV every 8 hourly on 01/06, decreased to [id number] on 01/11. Stopped Hydrocortisone 01/12 and has been on prednisone 10mg daily since 01/13 Prophylaxis: GI Prophylaxis: -- Protonix IV BID DVT Prophylaxis: - SCDs Subcutaneous heparin on hold since 01/05, will keep on hold due to concern for recurrent bleeding. ACCESS: --PIV. May need to place PICC or CVL for TPN. Right IJ TLC 01/04-01/15 #12. Central access no longer needed. Placed peripheral IV and discontinue central venous line. PT/OT. Discussed with [employer] SUPERVISOR at bedside This patient remains critically ill with one or more organ systems which are or may become a threat to life. I have spent in excess of 37 minutes discontinuously in the care and management of this patient. This time is exclusive of procedures, and includes, but is not limited to, evaluation of the patient, review of the medical record, discussions with family, consultants, nursing staff, or respiratory therapy, and documentation in the medical record. Physician Fe Poole Problem Qualifiers (1) Respiratory failure: Qualified Code: J96.00 - Acute respiratory failure, unspecified whether with hypoxia or hypercapnia (2) Altered mental status: Qualified Code: R41.0 - Delirium (3) Sepsis: Qualified Code: A41.9 - Sepsis, due to unspecified organism Fe Poole MD Jan 18, 2016 14:23
--- NOTE | 2016-01-18 15:19 | HHI.GIFU ---
Subjective Remarks Resting in bed. No active bleeding. NGT clamped. Ileostomy bag with melena- likely old. (Lisa Monroy) Objective Vitals I&O Vital Signs Date Time Temp Pulse Resp B/P Pulse Ox O2 Delivery O2 Flow Rate FiO2 01/18/16 14:55 100 30 01/18/16 12:00 97 T-piece 4.00 28 01/18/16 09:10 100 30 01/18/16 09:10 30 01/18/16 08:00 97.9 108 17 125/71 100 01/18/16 08:00 30 01/18/16 06:00 111 01/18/16 04:00 111 01/18/16 04:00 97.9 111 14 119/72 100 01/18/16 04:00 100 50 01/18/16 04:00 30 01/18/16 02:00 106 01/18/16 01:00 98 50 01/18/16 00:00 30 01/18/16 00:00 102 01/18/16 00:00 97.9 102 14 134/82 100 01/17/16 22:22 100 50 01/17/16 22:00 93 01/17/16 20:07 100 30 01/17/16 20:00 97.8 98 19 146/80 100 01/17/16 20:00 30 01/17/16 20:00 98 01/17/16 18:00 100 01/17/16 16:46 95 30 01/17/16 16:00 97.7 100 21 150/91 100 01/17/16 16:00 100 01/17/16 16:00 30 01/17/16 15:15 30 I/O 01/17/16 01/17/16 01/17/16 01/18/16 01/18/16 01/18/16 06:59 14:59 22:59 06:59 14:59 22:59 Intake Total 594 ml 882 ml 435 ml 490 ml Output Total 1260 ml 980 ml 435 ml 520 ml Balance -666 ml -98 ml 0 ml -30 ml Intake Oral 0 ml 0 ml IV Total 200 ml 596 ml 375 ml 490 ml Tube Feeding 394 ml 166 ml Other 120 ml 60 ml Output Urine Total 550 ml 440 ml 250 ml 425 ml Stool Total 625 ml 100 ml 50 ml 30 ml Gastric Drainage Total 25 ml 125 ml Drainage Total 60 ml 315 ml 135 ml 65 ml Laboratory Laboratory Tests Test 01/17/16 01/17/16 01/18/16 16:26 21:53 07:54 Hemoglobin 7.9 7.9 8.0 Hematocrit 24.0 24.5 24.9 White Blood Count 17.4 Red Blood Count 2.68 Mean Corpuscular Volume 92.9 Mean Corpuscular Hemoglobin 29.9 Mean Corpuscular Hemoglobin 32.2 Concent Red Cell Distribution Width 18.4 Platelet Count 160 Mean Platelet Volume 11.3 Neutrophils (%) (Auto) 75.2 Lymphocytes (%) (Auto) 8.9 Monocytes (%) (Auto) 14.4 Eosinophils (%) (Auto) 1.3 Basophils (%) (Auto) 0.2 Neutrophils # (Auto) 13.1 Lymphocytes # (Auto) 1.5 Monocytes # (Auto) 2.5 Eosinophils # (Auto) 0.2 Basophils # (Auto) 0.0 CBC Comment AUTO DIFF Differential Total Cells 100 Counted Neutrophils % (Manual) 67 Band Neutrophils % 5 Lymphocytes % 8 Monocytes % 16 Neutrophils # (Manual) 13.2 Metamyelocytes 4 Nucleated Red Blood Cells 1 Differential Comment FINAL DIFF MANUAL Platelet Estimate NORMAL Platelet Morphology Comment NORMAL Sodium Level 148 Potassium Level 4.6 Chloride Level 118 Carbon Dioxide Level 16.6 Anion Gap 13 Blood Urea Nitrogen 94 Creatinine 2.38 Estimat Glomerular Filtration 29 Rate Random Glucose 91 Calcium Level 8.3 Phosphorus Level 4.9 Total Bilirubin 1.9 Aspartate Amino Transf 37 (AST/SGOT) Alanine Aminotransferase 26 (ALT/SGPT) Alkaline Phosphatase 239 Total Protein 4.6 Albumin 1.1 Imaging Last Impressions Chest X-Ray 01/16/16 0600 Signed Impressions: Service Date/Time: Saturday, January 16, 2016 03:01 - CONCLUSION: No appreciable change. Freddy Connor MD Abdomen/Pelvis CT 01/06/16 0000 Signed Impressions: Service Date/Time: Wednesday, January 06, 2016 22:07 - CONCLUSION: 1. Over the last day there is development of a large mass in the left upper quadrant measuring up to 18 x 13 cm which appears to be associated with the stomach. The mass is characterized by somewhat concentric areas of decreased and increased attenuation with multiple locules of air. Primary differential diagnosis is hemorrhage into the gastric wall with gastric pneumatosis and possibly gastric ischemia. Gastrostomy is again noted anteriorly. 2. Remainder the exam is relatively stable with drainage tube left upper quadrant, splenectomy, bilateral effusions, feeding jejunostomy and drain within the pelvis. There is also diffuse anasarca and nonobstructing renal calculi. Nomi Falcon MD Chest CT 01/05/16 0000 Signed Impressions: Service Date/Time: Tuesday, January 05, 2016 23:15 - CONCLUSION: 1. Persistent left lower lobar consolidation. Improved consolidative infiltrates in the right lower lung. 2. Interval increase size bilateral pleural effusions , left greater than right. Osmar Alegria MD Celiac/Hepatic Arteriogram 12/27/15 0000 Signed Impressions: Service Date/Time: December 13:41 - CONCLUSION: 1. No active GI bleed identified. Robert Mckinney MD Abdomen X-Ray 12/18/15 0000 Signed Impressions: Service Date/Time: Friday, December 18, 2015 16:05 - CONCLUSION: Feeding tube tip is at the gastric antrum. Arnaldo Elias MD Head CT 12/02/15 1013 Signed Impressions: Service Date/Time: Wednesday, December 02, 2015 11:00 - CONCLUSION: 1. No intracranial abnormality is seen. 2. Air-fluid level in the right maxillary sinus. Arnaldo Reyes MD Physical Exam HEENT: Normocephalic; atraumatic; no jaundice. CHEST: Resp. shallow, diminished. Tracheostomy, course breath sounds CARDIAC: ST ABDOMEN: Soft, nondistended. J tube clamped. Midline drsg d/i, BEV drain x 2RLQ ileostomy with melena EXTREMITIES: Generalized edema. 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 Reconsulted for significant drop in Hgb overnight from 9.2/28.7 to 6.6/20.6 yesterday. S/P EGD (01/17/16)----> Gastric ulcers,gastritis, thickened gastric fold. Pathology pending. Protonix Gtt. - Upper GI bleed/Gastric Ulcers. S/P EGD (12/27/15)-----> Large clots filling the stomach. There was active bleeding from small ulcerations next to the PEG tube that was cauterized and injected with lidocaine. Next to that area, about 1-2 cm, there was a large deep ulcer which was actively bleeding, injected with lidocaine and cauterized. Significant amount of the stomach was grayish in color, possible ischemia, significant esophagitis. Went for angiogram with selective injection of the celiac origin, left gastric, gastroepiploic and SMA- No active GI bleed identified (12/27/15). S/P Exploratory laparotomy, MAKENZIE, gastrotomy with ligation of gastric ulcer, VAC placement (01/07/16). - Severe anemia. 8.0/24.9. - Perforated right colon sec. to colitis, s/p ex-lap, extended right hemicolectomy with primary ileocolic anastomosis, washout, open abdomen (12/18) per surgery. Path suspicious for Ischemic vs. CDifficilie. S/P Exp. lap with subtotal colectomy (12/20). - GERD, requiring daily antacids at home. PPI. - Severe sepsis with worsening leukocytosis - RUE infection/wound. Per plastics/ID - Resp. Failure. S/P Tracheostomy Per [facility]/Electrolyte abnormalities. Creat 2.38 - Chronic hepatitis C. S/P tx with Interferon/Ribavirin 6-7 years ago. reports that he was undetectable during treatment, but did not have a sustained virological response. He has never been told that he has liver cirrhosis. Liver biopsy (04/14/08)----> chronic hepatitis C with mild periportal inflammation grade 2 and mild fibrous portal expansion stage 1. He does not drink ETOH. PLAN: - Jevity 1.5 at 60cc/hr - Await pathology - Cont. Protonix Gtt - Avoid NG tube - May resume anticoagulation as necessary but no NSAIDs - Repeat EGD in 2 months - Supportive care - Notify GI of active bleeding. - Further recommendations to follow based on results of above - Pt seen and examined by Dr. Sanchez and myself and this note is written on his behalf (Lisa Monroy) Physician Comments Patient seen and examined Agree with above Continue with current supportive care Monitor labs (Con Sanchez MD) Lisa Monroy Jan 18, 2016 15:19 Con Sanchez MD Jan 18, 2016 18:17
--- NOTE | 2016-01-18 22:37 | HHI.IDPN ---
Subjective Subjective Remarks Late entry- pt was seen earlier today around 1530 0Pt is afebrile off pressors more awake TF off Antibiotics fluconazole Lines RSC TLC Past Medical History RA HCV sp splenectomy Allergies: Coded Allergies: Compazine (Verified Allergy, Severe, VOMITING, RASH, 08/26/14) SLURRED SPEECH, MIGRAINES Demerol (Verified Allergy, Severe, VOMITING, 08/26/14) Levaquin (Verified Allergy, Severe, 08/26/14) Penicillin (Verified Allergy, Severe, Rash, 08/26/14) Phenergan (Verified Allergy, Severe, VOMITING, 08/26/14) Uncoded Allergies: ANTI-CONVULSIVES (Allergy, Severe, MIGRAINES, SLURRED SPEECH,, 01/23/14) Objective . Vital Signs Date Time Temp Pulse Resp B/P Pulse Ox O2 Delivery O2 Flow Rate FiO2 01/18/16 20:00 95 01/18/16 20:00 97.8 98 15 139/78 99 01/18/16 20:00 30 01/18/16 19:37 99 30 01/18/16 16:00 30 01/18/16 16:00 98.2 102 11 133/81 98 01/18/16 14:55 100 30 01/18/16 12:00 97 T-piece 4.00 28 01/18/16 12:00 98.7 108 17 125/71 100 01/18/16 09:10 100 30 01/18/16 09:10 30 01/18/16 08:00 97.9 108 17 125/71 100 01/18/16 08:00 30 01/18/16 06:00 111 01/18/16 04:00 111 01/18/16 04:00 97.9 111 14 119/72 100 01/18/16 04:00 100 50 01/18/16 04:00 30 01/18/16 02:00 106 01/18/16 01:00 98 50 01/18/16 00:00 30 01/18/16 00:00 102 01/18/16 00:00 97.9 102 14 134/82 100 01/17/16 22:22 100 50 01/17/16 01/17/16 01/18/16 15:00 23:00 07:00 Intake Total 882 ml 435 ml 490 ml Output Total 980 ml 435 ml 520 ml Balance -98 ml 0 ml -30 ml Intake Oral 0 ml IV Total 596 ml 375 ml 490 ml Tube Feeding 166 ml Other 120 ml 60 ml Output Urine Total 440 ml 250 ml 425 ml Stool Total 100 ml 50 ml 30 ml Gastric Drainage Total 125 ml Drainage Total 315 ml 135 ml 65 ml . Laboratory Tests Test 01/17/16 01/17/16 01/17/16 01/17/16 03:43 08:40 16:26 21:53 White Blood Count 12.6 TH/MM3 16.3 TH/MM3 Red Blood Count 2.21 MIL/MM3 2.76 MIL/MM3 Hemoglobin 6.6 GM/DL 8.2 GM/DL 7.9 GM/DL 7.9 GM/DL Hematocrit 20.6 % 24.9 % 24.0 % 24.5 % Mean Corpuscular Volume 93.3 FL 90.2 FL Mean Corpuscular Hemoglobin 29.7 PG 29.7 PG Mean Corpuscular Hemoglobin 31.9 % 32.9 % Concent Red Cell Distribution Width 18.1 % 17.6 % Platelet Count 107 TH/MM3 166 TH/MM3 Mean Platelet Volume 11.4 FL 11.1 FL Neutrophils (%) (Auto) 75.1 % 73.6 % Lymphocytes (%) (Auto) 9.4 % 10.0 % Monocytes (%) (Auto) 13.1 % 13.3 % Eosinophils (%) (Auto) 1.9 % 2.3 % Basophils (%) (Auto) 0.5 % 0.8 % Neutrophils # (Auto) 9.5 TH/MM3 12.0 TH/MM3 Lymphocytes # (Auto) 1.2 TH/MM3 1.6 TH/MM3 Monocytes # (Auto) 1.7 TH/MM3 2.2 TH/MM3 Eosinophils # (Auto) 0.2 TH/MM3 0.4 TH/MM3 Basophils # (Auto) 0.1 TH/MM3 0.1 TH/MM3 CBC Comment AUTO DIFF AUTO DIFF Differential Total Cells 100 100 Counted Neutrophils % (Manual) 63 % 66 % Band Neutrophils % 8 % 3 % Lymphocytes % 12 % 13 % Monocytes % 10 % 8 % Eosinophils % 2 % 1 % Neutrophils # (Manual) 9.6 TH/MM3 12.7 TH/MM3 Metamyelocytes 3 % 3 % Myelocytes 2 % 5 % Differential Comment FINAL DIFF FINAL DIFF MANUAL MANUAL Platelet Estimate LOW NORMAL Platelet Morphology Comment ENLARGED ENLARGED Keratocytes OCC OCC Promyelocytes 1 % Test 01/18/16 07:54 White Blood Count 17.4 TH/MM3 Red Blood Count 2.68 MIL/MM3 Hemoglobin 8.0 GM/DL Hematocrit 24.9 % Mean Corpuscular Volume 92.9 FL Mean Corpuscular Hemoglobin 29.9 PG Mean Corpuscular Hemoglobin 32.2 % Concent Red Cell Distribution Width 18.4 % Platelet Count 160 TH/MM3 Mean Platelet Volume 11.3 FL Neutrophils (%) (Auto) 75.2 % Lymphocytes (%) (Auto) 8.9 % Monocytes (%) (Auto) 14.4 % Eosinophils (%) (Auto) 1.3 % Basophils (%) (Auto) 0.2 % Neutrophils # (Auto) 13.1 TH/MM3 Lymphocytes # (Auto) 1.5 TH/MM3 Monocytes # (Auto) 2.5 TH/MM3 Eosinophils # (Auto) 0.2 TH/MM3 Basophils # (Auto) 0.0 TH/MM3 CBC Comment AUTO DIFF Differential Total Cells 100 Counted Neutrophils % (Manual) 67 % Band Neutrophils % 5 % Lymphocytes % 8 % Monocytes % 16 % Neutrophils # (Manual) 13.2 TH/MM3 Metamyelocytes 4 % Nucleated Red Blood Cells 1 /100 WBC Differential Comment FINAL DIFF MANUAL Platelet Estimate NORMAL Platelet Morphology Comment NORMAL Laboratory Tests Test 01/17/16 01/18/16 03:42 07:54 Sodium Level 151 MEQ/L 148 MEQ/L Potassium Level 4.2 MEQ/L 4.6 MEQ/L Chloride Level 122 MEQ/L 118 MEQ/L Carbon Dioxide Level 17.4 MEQ/L 16.6 MEQ/L Anion Gap 12 MEQ/L 13 MEQ/L Blood Urea Nitrogen 92 MG/DL 94 MG/DL Creatinine 2.37 MG/DL 2.38 MG/DL Estimat Glomerular Filtration 29 ML/MIN 29 ML/MIN Rate Random Glucose 132 MG/DL 91 MG/DL Calcium Level 7.7 MG/DL 8.3 MG/DL Phosphorus Level 2.3 MG/DL 4.9 MG/DL Total Bilirubin 1.9 MG/DL Aspartate Amino Transf 37 U/L (AST/SGOT) Alanine Aminotransferase 26 U/L (ALT/SGPT) Alkaline Phosphatase 239 U/L Total Protein 4.6 GM/DL Albumin 1.1 GM/DL Imaging Last Impressions Chest X-Ray 01/16/16 0600 Signed Impressions: Service Date/Time: Saturday, January 16, 2016 03:01 - CONCLUSION: No appreciable change. Freddy Connor MD Abdomen/Pelvis CT 01/06/16 0000 Signed Impressions: Service Date/Time: Wednesday, January 06, 2016 22:07 - CONCLUSION: 1. Over the last day there is development of a large mass in the left upper quadrant measuring up to 18 x 13 cm which appears to be associated with the stomach. The mass is characterized by somewhat concentric areas of decreased and increased attenuation with multiple locules of air. Primary differential diagnosis is hemorrhage into the gastric wall with gastric pneumatosis and possibly gastric ischemia. Gastrostomy is again noted anteriorly. 2. Remainder the exam is relatively stable with drainage tube left upper quadrant, splenectomy, bilateral effusions, feeding jejunostomy and drain within the pelvis. There is also diffuse anasarca and nonobstructing renal calculi. Nomi Falcon MD Chest CT 01/05/16 0000 Signed Impressions: Service Date/Time: Tuesday, January 05, 2016 23:15 - CONCLUSION: 1. Persistent left lower lobar consolidation. Improved consolidative infiltrates in the right lower lung. 2. Interval increase size bilateral pleural effusions , left greater than right. Osmar Alegria MD Celiac/Hepatic Arteriogram 12/27/15 0000 Signed Impressions: Service Date/Time: December 13:41 - CONCLUSION: 1. No active GI bleed identified. Robert Mckinney MD Abdomen X-Ray 12/18/15 0000 Signed Impressions: Service Date/Time: Friday, December 18, 2015 16:05 - CONCLUSION: Feeding tube tip is at the gastric antrum. Arnaldo Elias MD Head CT 12/02/15 1013 Signed Impressions: Service Date/Time: Wednesday, December 02, 2015 11:00 - CONCLUSION: 1. No intracranial abnormality is seen. 2. Air-fluid level in the right maxillary sinus. Arnaldo Reyes MD Physical Exam GENERAL: On vent , awake alert SKIN: + minimal jaundice. Anasarca HEENT: + mild icterus, no nasal discharge Chemosis + NECK: Trach in place CARDIOVASCULAR: systolic murmur in base of heart RESPIRATORY/CHEST: scattered rhonchi on auscultation.L side with crackes GASTROINTESTINAL: dressing in place JPsx2 in place with seropurulent drainage Stoma with brown stool Incision with dehiscense and serous drainage GENITOURINARY: Sandoval catheter in place with clear light yellow urine with sediment MUSCULOSKELETAL: Extremities no cyanosis, edema markedly improved on BLE, thighs however 3-4+ pitting edema RUE seen with with VAC off: near complete granulatinon of forearm wound, minimal necrosis of the hand dorsal wound LUE with unstageble 100% necrotic wound, probably full thickness skin loss NEUROLOGICAL: awake, makes eye contact communicates appropiately LINES: NO evidence of infection Assessment & Plan Remarks Sepsis related to Cdiff and Intra abdominal peritonitis. - sp subtotal colectomy and ileostomy SP colon perfocation and intraperitoneal gross contamination - wound is not healing ? Cdiff Colitis Noted Cdiff PCR is negative3/3 ? Zinc preparation in perianal care could cause false negative test. Path c/o Cdiff Colitis. - repeat path favouring ischemia RUE severe nec fasc due to MSSA - skin grafting was planned, but cancelled - S/P I and D x 3 - clinically resolved Recurretn life threatening upper GI bleeding 2/2 bleeding ulcers Persistent leukocytosis -worsening C. parapsilosa fungemia ? sourece intraabd vs (less likely) line - repeat BC negative - no fungal endophalmitis - Dr Parker help appreciated PLAN: cont fluconazole - anticipate 4 weeks monitor WBC D/W Argelia Carreno MD Jan 18, 2016 22:37
[2016-01-19] VITALS (17 sets, daily range): BP systolic 126–169; BP diastolic 68–88; PULSE 100–114; RESP 14–27; TEMP 97.9–98.6; O2SAT 93–100
[2016-01-19] MEDS: DEXTROSE 5% IN WATE 1000ML INJ 1,000 ML IV SCH (00:08)
[2016-01-19] MEDS: oxyCODONE HCL ORAL CONC 20 MG/ML SYRINGE PO SCH ×6 (00:08→20:45)
[2016-01-19] MEDS: CHLORHEXIDINE GLUCONATE 2 % 1 PACK (2 CLOTHS) TOP SCH (02:36)
[2016-01-19] MEDS: RESP: ALBUTEROL 2.5 MG/IPRATROPIUM 0.5 MG NEB (SCH) NEB ×4 (03:11→21:49)
[2016-01-19 04:27] LABS: HEMATOCRIT 22.9 % (39.0-51.0); MEAN CELL VOLUME 92.5 FL (80.0-100.0); MEAN CORPUSCULAR HEMOGLOBIN 29.6 PG (27.0-34.0); PLATELET COUNT 158 TH/MM3 (150-450); RED BLOOD COUNT 2.47 MIL/MM3 (4.50-5.90); RED CELL DISTRIBUTION WIDTH 17.9 % (11.6-17.2); WHITE BLOOD COUNT 16.3 TH/MM3 (4.0-11.0)
[2016-01-19 04:28] LABS: REVIEW FLAG FINAL
[2016-01-19 04:46] LABS: ANION GAP 13 MEQ/L (5-15); AST (GOT) 40 U/L (15-37); BICARBONATE 15.6 MEQ/L (21.0-32.0); BLOOD UREA NITROGEN 90 MG/DL (7-18); CHLORIDE 115 MEQ/L (98-107); GLOMERULAR FILTRATION RATE 30 ML/MIN (>89); POTASSIUM 4.6 MEQ/L (3.5-5.1); SODIUM (NA) 144 MEQ/L (136-145)
[2016-01-19] MEDS: METOPROLOL TARTRATE 5 MG/5 ML VIAL IV PUSH SCH ×3 (04:50→21:01)
[2016-01-19 04:51] LABS: ALKALINE PHOSPHATASE 280 U/L (45-117); ALT (GPT) 28 U/L (12-78); TOTAL BILIRUBIN ADULT 1.8 MG/DL (0.2-1.0)
[2016-01-19] MEDS: PANTOPRAZOLE SODIUM 40 MG VIAL IV PUSH SCH ×2 (04:51→17:43)
[2016-01-19] MEDS: INSULIN ASPART SUPPLEMENTAL SCALE SQ SCH ×4 (06:00→18:00)
[2016-01-19] MEDS: predniSONE 10 MG TAB NG SCH (08:48)
[2016-01-19] MEDS: FERROUS SULFATE 300 MG /5ML UDC TUBE SCH ×2 (08:48→20:45)
[2016-01-19] MEDS: CHLORHEXIDINE 0.12% (ORAL KIT) 15 ML CUP MT SCH ×2 (08:48→20:44)
[2016-01-19] MEDS: NEOMYCIN/POLYMYXIN/BACITRACIN OINT 15 GM TUBE TOPICAL SCH ×2 (08:49→20:45)
[2016-01-19] MEDS: POVIDONE IODINE 10% OINT 30 GM TUBE TOPICAL SCH (08:49)
--- NOTE | 2016-01-19 11:41 | HHI.CCPN ---
Subjective Remarks/Hospital Course 55-year-old male brought by EMS with altered mental status. He has been confused for 2 days but this morning has been the worst. He has history of chronic opiate medications including methadone and morphine that he takes for pain management and hence they gave him Narcan IV which brought the GCS up to 13. The blood glucose was 74. He has open wounds from his right upper and bilateral lower extremities. He has history of hepatitis C. Last week he was pealing and eating shrimps. Bedside blood sugar was 76 in the ER. He was tachycardic in 1 teens and was intubated in the ED for airway protection. Admitted to ICU with sepsis due to Staph Aureus hand infection and E. Coli bacteriemia. 12/05 Patient remains sedated with Fentanyl and intubated. On Levophed 3 mics, Vasopressin 0.03 mics and Bicarb drip. T:99.8 TF placed on hold OGT to LIWS last night - gastric drainage 525ml overnight. 12/06 Patient is sedated with Fentanyl and intubated, On Levophed 3 mics, off vasopressin. Gastric output 400ml in 24 hrs. KUB abdomen yesterday mildly distended colon otherwise non specific KUB. 12/07 Patient is off sedation remains intubated tolerated CPAP for most day yesterday. Afebrile. on no drips, tolerating tube feeds. 12/08 Patient went to OR yesterday for debridement and irrigation of right forearm and wound VAC placement. Given 2U PRBC and 2u PLT yesterday and currently receiving 1of 2 u additional PRBC. Hgb 7.7, PLT 43 this morning. Patient also started on pressors now on Levophed 10 mics. Vasopressin 0.04 mics. On no sedation. 12/09 Patient remains intubated off pressors, Afebrile. Tolerating tube feeds. Afebrile. 12/10 Patient is sedated with Fentanyl and intubated. Awake and follows commands off sedation. Afebrile. 12/11 Patient had ?SVT overnight given Lopressor 2.5mg IV x1, Remains intubated and sedated with Fentanyl. Afebrile. Tolerating TF. 12/12 Patient spoked fever last night with T: 101.5, sedated with Fentanyl and intubated. 12/13 Patient had an episode of desaturation overnight required increase FIO2/ PEE now on ACV with RR 14, TV 550, PEEP: 12, FIO2 60% with sats 100% CT chest performed overnight showed b/l consolidation and small pleural effusion. Had T: 100.0 last night. 12/14 Tolerating PS 15/CPAP 10 FiO2 40% with rSBI 38, weaning. . Awake and alert , following commands. Hypotensive overnight and levophed restarted up to 12 mcg/ min. Nurse has been weaning throughout the day. Suspected adrenal insufficiency as he was on prednisone as outpatient for gout and has not been on stress dose steroids. Given decadron. 12/15 Transfused 1 unit PRBC for Hgb 7.0 yesterday, 1 unit PRBC for Hgb 6.6 today and now Hgb 8.3. Does not clinically have e/o active GI bleeding and wound vac output nonbloody. Stool 1500 output, C diff negative. No abdominal pain. Remains Awake and alert, remained on CPAP 10/5 last night and is now tolerating CPAP 5/5. 12/16: Extubated yesterday tolerating well. Breathing comfortably. Able to follow commands. UO 1.8 L in 24 hours. Na slightly increased to 153. 12/17: Significantly worse this AM. WBC up to 28 from 16. Hgb 5.2 from 7.9. tachycardic. pale this AM. states he feels tired. Continues on BiPAP. Plan for debridement of his arms today. LIJ CVL does not have any signs of overt infection. 12/18: Blood cell count continues to rise today to 30 from 28. Required 1 unit of blood for hemoglobin of 6.6 which improved to 7.7 this morning. However, patient remains tachycardic in the 120s and significantly pale. CT abdomen and pelvis ordered and pending. Tachypneic with respiratory rate in the 30s. Only small amount of dark tarry stool yesterday with approximately 300 cc of stool output. C. difficile toxin negative 3. After discussion with infectious disease, restart vancomycin, cefepime, Flagyl, micafungin. Horn cultures are pending. Per discussion with GI, will not scope as endoscopy is high risk given his tenuous respiratory status this point. Slightly worse hypernatremia as well as worsening acute kidney injury this morning. 12/19: POD 1 s/p ex-lap, washout for perforated ascending colon with extended right hemicolectomy, primary ileocolic anastamosis, open abdomen, septic shock, acute hypoxic and hypercarbic respiratory failure. Significantly critically ill overnight: required 6L ivf resuscitation, 1 unit prbc, norepinephrine, vasopressin, stress dose hydrocortisone. This morning, remains on high-dose vasopressors. still has large volume ivf requirement. Significant SIRS response. Vent requirements increasing with all this volume resuscitation, PEEP up to 10. He remains critically ill, and although I do believe we have surgical source control, I anticipate he will continue to clinically decline before he starts to make improvements. 12/20: Off pressors. follows commands on sedation holiday. +11L over last 3 days during acute illness, +22L since admission. We are going to have to get some of this volume back before we are able to close him given his severe anasarca. 12/21: Taken back to the OR yesterday afternoon for washout and completion colectomy. Postoperatively was significantly under resuscitated as well as had ongoing active oozing. Patient was coagulopathy. The patient was in distributive and hemorrhagic shock. The patient was given multiple units of blood products overnight. Patient was thrombocytopenic, hypofibrinogenemic, coagulopathic. Given significant volume of blood product resuscitation: 24h blood products: 13 prbc 8 ffp 2 plt 1 10-pack cryo This morning continues to have significant amount of bright red output out of his BEV and wound VAC, approximately 500 cc an hour out of his wound VAC, and approximately 75 an mils every 10 minutes out of a BEV. I discussed with surgery and we will correct his coagulopathy and plan to go back to the OR for exploration early this afternoon. 12/22: Clinically starting to improve hemodynamically. off vasopressors. Net+ 26L. CVP rising to 14. UOP adequate. Hgb 7 this AM. 12/23 Seen postop. Hypertensive, BP improved with additional pain medicine. Remains net positive but urine output excellent 3L in 24 hours. Remains on Lasix gtt. went to OR today status post wound VAC change and partial closure 12/24: Fascia was closed yesterday. Wound Vac in place. Remains sedated. -2L negative balance, but with increasing BUN/creat. Discontinue Bumex infusion, start scheduled Bumex 2 mg IV every 12 with IV albumin. 12/25: Overnight became hypotensive requiring Levophed to be restarted. Hemoglobin dropped to 4.1. Noted to have bloody drainage from G-tube and dorsal ileostomy with black stool output 12/26: s/p EGD yesterday-2 gastric ulcers bleeding, stomach a significant part had decreased discoloration indicating probable ischemia. s/p epi injection and cauterization. Continues to have coffee ground G tube output, black tarry Ileostomy output. Hemoglobin down to 6.4 getting 2 units of PRBC. GI recent recommending intervention radiology consult. 12/27: For trach today. Meds ordered. Hgb decline consistent with recent transfusions and senescent cells. 12/28: Trach clean, dry. Start SBTs. Check prealbumin. Continue TPN. 12/29: Looks in direction of voice. I have not seen more purposeful reactions. Line > 12 days old, replace today. Prealbumin 20 - good response to TPN. 12/30: Remains vented, encephalopathic, puss like drainage from left hand, WBC increased 01/01: no significant changes. continues to remain critically ill with minimal improvements over the last week. abdomen closed. still total body volume overloaded. 01/02: more awake today than yesterday. continues to be critically ill with minimal improvements overall. need to look towards placement. -900 yesterday. 01/03: up in chair yesterday. tolerated short run of SBT 15/5/40%. net euvolemic. wbc downtrending. 01/04: wbc slightly uptrended 33 from 30, more acidotic on BMP (14 from 20). Also spiking fevers to 102.3 despite tylenol. continues on broad spectrum abx. yesterday's cxr had what may be a new LLL infiltrate. today, though, he is following commands and more awake and alert. 01/05: LLL pna clinically and based on bronch. CT c/a/p done last night without any significant intra-abdominal change. small left pleural effusion which appears simple in nature, and LLL consolidation. ID broadened abx. today , wbc downtrending. culture data pending. Hgb 7 this AM. 01/06: Underwent exploratory laparotomy last night with findings of bleeding gastric ulcer which was oversewn by Dr. Verdin abdomen left open with wound VAC in place. Received 3 units PRBCs overnight. Remains on Wesley-Synephrine drip this morning for hypotension. Remains sedated, on mechanical ventilation. 01/07: Remains sedated, on mechanical ventilation. For abdominal incision site closure today. Significant positive fluid balance over the last 2 days. Off pressors currently. Lasix to mobilize fluid. 01/08: Remains sedated, on mechanical ventilation via tracheostomy. Underwent abdominal incision site closure this morning. Remains off pressors. Anasarca noted. Blood cultures from 01/04 growing Nava parapsilosis. 01/09: Drowsy/sedated, arousable, on mechanical ventilation via tracheostomy. TPN started yesterday. To be started on J-tube feeds per discussion with surgery 01/10: Sedated, arousable, on mechanical ventilation via tracheostomy. Remains on TPN. J-tube feeds being started today. 01/11: Was on T piece yesterday and rested on C Pap overnight. On TPN. Advanced J-tube feeds to 20 cc an hour today. Attempt T piece as tolerated. 01/12: Awake, tracks with his eyes. On C Pap overnight. Tolerated T piece during daytime yesterday. 01/13: Awake and alert. Was on T piece all day yesterday and was placed back on C Pap at 1:45 AM this morning. Does not appear to be in any acute distress. Tolerating J-tube feeds at 20 cc per hour. 01/14: Drowsy, easily arousable. Was on T piece all day yesterday and rested on C Pap at night. Tolerating J-tube feeds at 40 cc an hour with goal of 60 cc per hour. On TPN which will be discontinued after current bag. BEV drain with cloudy drainage. 01/15 Was placed back on ACV yesterday around 9 am due to tachypnea and remained on ACV overnight. Now on CPAP 11/20 and tolerating. BEV in lower abdomen had purulent output yesterday but RN states looks better today. Tolerating tube feeds, stool in ostomy. Off TPN. Removing CVL. 01/16 Hgb 6.6 on CBC this morning, lab draw, repeat pending. Tachycardia persists but otherwise no hemodynamic change. The NGT output yesterday was bilious, today brown/slight coffee grounds but mostly clear. No blood from BEV' s.Has been tolerating jejunal tube feeds, placed on hold for now. Has been tolerating CPAP 10/5 with RSBI 10s. GI/General surgery updated. 01/17 Hemoglobin 8.0. EGD performed yesterday showing gastric ulcers with no active bleeding. Abdominal wound dressing change today. Plan to begin trickle feeds today per general surgery. Subjective: 01/18 Hgb 7.3. Tolerating trickle feeds that were resumed per general surgery.Tolerated Tpiece 2 hours yesterday. On CPAP 8/5 overnight. Now on Tpiece about 1 hour and doing well. Will continue intermittent Tpiece trials throughout the day with rest on CPAP in between. Watching off abx; cefepime discontinued 01/16. Remains on fluconazole for candidemia. Objective Vital Signs Date Time Temp Pulse Resp B/P Pulse Ox O2 Delivery O2 Flow Rate FiO2 01/19/16 09:33 100 30 01/19/16 06:00 101 01/19/16 04:00 98.2 14 154/84 01/18/16 12:00 T-piece 4.00 Intake and Output 01/18/16 01/18/16 01/18/16 07:59 15:59 23:59 Intake Total 490 ml 416 ml 540 ml Output Total 520 ml 555 ml 440 ml Balance -30 ml -139 ml 100 ml Result Diagram: 01/19/16 0402 01/19/16 0402 Imaging Last 48 hours Impressions Chest X-Ray 01/07/16 0000 Signed Impressions: Service Date/Time: Thursday, January 07, 2016 04:23 - CONCLUSION: Worsening consolidation or atelectasis at the left mid and lower lung. Some degree of left effusion may also be contributing to this. Arnaldo Reyes MD Chest X-Ray 01/06/16 0000 Signed Impressions: Service Date/Time: Wednesday, January 06, 2016 19:46 - CONCLUSION: 1. Basilar airspace disease improved from January 04. Tracheostomy and right central line in satisfactory position. Nomi Falcon MD Abdomen/Pelvis CT 01/06/16 0000 Signed Impressions: Service Date/Time: Wednesday, January 06, 2016 22:07 - CONCLUSION: 1. Over the last day there is development of a large mass in the left upper quadrant measuring up to 18 x 13 cm which appears to be associated with the stomach. The mass is characterized by somewhat concentric areas of decreased and increased attenuation with multiple locules of air. Primary differential diagnosis is hemorrhage into the gastric wall with gastric pneumatosis and possibly gastric ischemia. Gastrostomy is again noted anteriorly. 2. Remainder the exam is relatively stable with drainage tube left upper quadrant, splenectomy, bilateral effusions, feeding jejunostomy and drain within the pelvis. There is also diffuse anasarca and nonobstructing renal calculi. Nomi Falcon MD Last Impressions Chest X-Ray 12/17/15 0600 Signed Impressions: Service Date/Time: Thursday, December 17, 2015 03:25 - CONCLUSION: Persistent left lower lobe consolidation. Osmar Alegria MD Chest CT 12/14/15 0000 Signed Impressions: Service Date/Time: Monday, December 14, 2015 06:12 - CONCLUSION: 1. Cardiomegaly with bilateral consolidation, likely CHF. Pneumonia cannot be excluded. 2. Small right pleural effusion. Wojciech Lockhart MD Abdomen X-Ray 12/06/15 0000 Signed Impressions: Service Date/Time: November 09:53 - CONCLUSION: Nonspecific KUB. Air is seen within a mildly distended colon but contrast is clearly seen in the rectum. Arnaldo Reyes MD Abdomen/Pelvis CT 12/04/15 0000 Signed Impressions: Service Date/Time: Friday, December 04, 2015 16:24 - CONCLUSION: 1. Mildly distended small bowel in the mid and lower abdomen. Contrast is clearly seen extending into the distal small bowel and ascending colon so a complete obstruction is not seen. A transition point is not seen. This pattern likely represents an ileus versus a partial obstruction. 2. Multiple nonobstructing renal stones. 3. Abnormal appearance of the spleen which appears to represent a splenule. It could be correlated if the patient has had either primary splenic removal or splenic injury and this is what is either left of the spleen or a developing splenule. This is likely of no significance. 4. Mild ascites. 5. Increased density within the gallbladder representing either tumefactive sludge or noncalcified stones. 6. Mild bilateral pleural effusions with prominent areas of lower lobe atelectasis or consolidation at the bases bilaterally. 7. Subacute to chronic bilateral rib fractures and multiple compression fractures in the lower thoracic and lumbar spine as described above. The patient does have a prior CT examination from 08/26/2014. All the compression deformities described above are new when compared to that scan. Arnaldo Reyes MD Head CT 12/02/15 1013 Signed Impressions: Service Date/Time: Wednesday, December 02, 2015 11:00 - CONCLUSION: 1. No intracranial abnormality is seen. 2. Air-fluid level in the right maxillary sinus. Arnaldo Reyes MD Objective Remarks Drips: D5W@50 mg/h Jevity 1.5 @ 10 mL per hour GENERAL: Middle-aged chronically critically ill-appearing male, lying in bed, on Tpiece via trach. HEENT: NCAT. mucous membranes moist. NECK: trach in place. obese neck. difficult to assess JVD. RESPIRATORY: On tpiece, . Breath sounds present bilaterally, scattered rhonchi , diminished bibasilar, no wheezing . CARDIOVASCULAR: regular, tachycardic ~101-105. Sinus tach on monitor. No murmurs rubs or gallops. GASTROINTESTINAL: J tube in place with tube feeds running trickle. L side BEV drain in mid lower abdomen with with serous/cloudy draininage. BEV mid lower abdomen with serous drainage. Ostomy with soft black. Hypoactive bowel sounds. MUSCULOSKELETAL: Generalized anasarca, doughy pitting edema 2+ bilateral feet. Multiple open wounds in the lower extremity, without exudate (observed on 01/15 , today have been wrapped in gauze) RUE - with wound vac in place over right arm with mostly serous, very slightly sanginous output. L upper extremity dressing in place; L forearm. NEURO: Awake, opens eyes spontaneously, makes eye contact and blinks yes/no in response to daughters questions. Smiles. Moves bilateral feet to command. 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 - fentanyl patch 75mcg/h q3d for long acting pain control. - Liquid tylenol 650mg per tube q6h discontinued in view of increasing bilirubin - Dilaudid 2mg iv q4h prn for breakthrough pain. - oxycodone 20mg per tube q4h scheduled. Respiratory Acute respiratory failure-extubated 12/16/15, reintubated for surgery 12/18 Acute hypoxic and hypercarbic respiratory failure Acute healthcare associated pneumonia- resolved NIGEL on home CPAP - Perc Tracheostomy 12/27 (Dr. Miller) - Vent bundle. Head of bed at 30 degrees. Duoneb q6h and prn. - was reportedly on C Pap/pressure support since 01/09, T piece trials since until placed on ACV 9 am on 01/14 and overnight that night. Seemed to fatigue and decompensated after prolonged Tpiece as tolerated, now trying Tpiece trials up to 2 hours tid. --CXR 01/15 - L pleural effusion. Will perform bedside u/s and consider thoracentesis. CV Hemorrhagic shock- resolved Septic Shock- resolved Volume overload - keep map > 65 mmHg. - Cortisol level 14 on 12/14 - Stopped stress dose hydrocortisone on 01/12 and started prednisone 10 mg daily 01/13. If hemodynamics changing or if returns to OR would need stress dose hydrocortisone again. - Echo 12/07 EF 65-70%, grade I diastolic dysfunction -On Metoprolol 2.5 mg IV every 8 hours FENRenal: DEIRDRE Hypernatremia Hypophosphatemia Anasarca, third spacing. - Strict intake output, monitor and replete electrolytes, follow BUN/ creatinine. - Hypernatremia improved with D5 @ 50 milliliters per hour. Will d/c. Check Feurea. -Creatinine remains ~2.2. Check urine eos, though now is off cefepime. Off vancomycin. Avoid nephrotoxins. Phos is elevated following aggressive replacement. Will monitor. /GI Acute GIB, hemorrhagic shock (resolved, now with recurrent anemia but not shock) Perforated right colon with colitis s/p ex-lap, extended right hemicolectomy with primary ileocolic anastamosis, washout, open abdomen (12/18) s/p Ex lap 01/05 for bleeding gastric ulcer Acute protein calorie malnutrition- severe Chronic hepatitis C s/p interferon/ribavirin years ago. Liver biopsy 04/14/08 - EGD 12/26/15 showed 2 large gastric ulcers with active bleeding status post epinephrine infusion and cauterization - OR on 12/24 with Removal of VAC, washout, pancreatic drain and pelvic drain placement, gastrostomy, feeding jejunostomy and closure of abdomen with application of VAC device in the subcutaneous tissue. -to OR 01/05 with GI bleeding and hemorrhagic shock. Had bleeding gastric ulcer and pneumatosis of stomach. Underwent gastrotomy with ligation of gastric ulcer , lysis of adhesions, wound VAC placement -01/16 Endoscopy showed - ulcers at antrum and cardia without stigmata of bleeding and no exposed vessel. Granulation tissue at suture line without bleeding. Small ulceration there also without bleeding. Duodenum normal. At low risk for UGI bleeding per GI, okay for anticoagulation from their point of view. Avoid NSAIDS/ASA. NGT removed 01/16, to remain out per GI; Dr. Sanchez. Repeat EGD in 2 months per GI recs. -Prior TPN stopped 01/01. Again on TPN 01/08-01/14. -Protonix 40 g IV q12h -Discussed with Dr. Soto. Increased Jevity 1.5 goal rate at 60 mL per hour per nutrition recommendations. Heme: Acute Anemia secondary to acute blood loss Thrombocytopenia Hypofibrinogenemia secondary to consumption and acute blood loss Coagulopathy secondary to consumption and acute blood loss --monitor CBC --Hep PLT ab negative on 12/03 - Ferrous Sulfate 300 bid - transfused 3 units PRBCs 01/05- -Hgb of 6.6 on 01/16 was a lab error. The hemoglobin was 8.2 on recheck without any transfusion provided. ID Severe sepsis Necrotizing Fascitis - MSSA on wound culture 12/07. Ecoli bacteremia 12/01 MSSA bacteremia 12/05. Cleared on f/u blood culture 12/07, 12/12. Candidemia (blood culture 01/04 with Nava parapsilosis) Sepsis of Intra-abdominal origin. C. difficile toxic megacolon (based on pathology C diff vs ischemia, C diff test negative) --Debridement 12/01 p.m at bedside by Dr Pedro and Dr. Hartmann --R hand, forearm and olecranon bursa I and D and Wound vac 12/07 Dr Chavez. -- ABX per ID: Now on Fluconazole alone 01/09 #10 Previously: cefepime 12/17-01/16,flagyl IV 12/17-01/16 , Vancomycin 01/04-01/16 ( trough 20 on 01/15). Micafungin stopped per ID 01/08. Amphotericin B started by ID on 01/08 and stopped 01/09. Nava parapsilosis in blood culture from 01/04 most likely from an intra- abdominal source(central line was changed on 01/04). Last set of blood cultures have been negative. BEV drain with cloudy drainage 01/14. General surgery aware and following. Plan Repeat CT Abd/pelvis if clinically worsening or sepsis worsens off abx. Seen by Dr. Wu 01/13 and no evidence of endogenous fungal endophthalmitis ID following, Dr. Becerra Wound care following for leg wounds. --12/17 blood cultures: NGTD 12/17 central line culture: NGTD 12/17 urine cultures: NGTD 12/17 sputum cultures: NGTD C. difficile toxin 12/17: Negative (3rd negative toxin screen) -01/04 Blood culture with nava parapsilosis 01/04: horn culture, bronch with BAL, 01/04: CT chest/abd/pelvis without contrast: LLL consolidation, otherwise unchanged. 01/04: clinically LLL VAP. 01/08 Blood cultures: no growth 01/09 blood culture peripheral - NGTD 01/12 sputum cutlure - neg 01/12 - urine culture NGTD. Endocrine: Hyperglycemia of Critical Illness Diabetes - off Insulin drip - Levemir BID on hold. - On low-dose insulin sliding scale with bedside glucose every 6 hours, not requiring coverage. Glucose at target. - Prednisone 10mg po daily since 01/13. Previously was on prednisone as an outpatient. Has been on hydrocortisone intermittently when he has gone to the OR or decompensated. Prophylaxis: GI Prophylaxis: -- Protonix IV BID DVT Prophylaxis: - SCDs Subcutaneous heparin on hold since 01/05. Remained on hold due to concern for bleeding. Patient has melena (which may be old) and ongoing anemia so will hold for now. ACCESS: --PIV. Right IJ TLC 01/04-01/15 #12. PT/OT. OOB. Discussed with ECHOCARDIOGRAPHER at bedside. Daughter updated at bedside and multiple questions answered. This patient remains critically ill with one or more organ systems which are or may become a threat to life. I have spent in excess of 31 minutes discontinuously in the care and management of this patient. This time is exclusive of procedures, and includes, but is not limited to, evaluation of the patient, review of the medical record, discussions with family, consultants, nursing staff, or respiratory therapy, and documentation in the medical record. Problem Qualifiers (1) Respiratory failure: Qualified Code: J96.00 - Acute respiratory failure, unspecified whether with hypoxia or hypercapnia (2) Altered mental status: Qualified Code: R41.0 - Delirium (3) Sepsis: Qualified Code: A41.9 - Sepsis, due to unspecified organism Isabela Gonzalez MD Jan 19, 2016 11:40
[2016-01-19] MEDS: FLUCONAZOLE 400 MG PREMIX BAG 200 ML IV SCH (12:20)
[2016-01-19] MEDS: HYDROmorphone HCL PF 2 MG/ML VIAL IV PUSH PRN ×3 (12:21→20:46)
--- NOTE | 2016-01-19 15:50 | HHI.GIFU ---
Subjective Remarks patient resting in bed accompanied by visitors, TF at 20 ml/hr, no nausea, no vomiting, no abd pain, no obvious bleeding, the ileostomy has dark green stools. hgb stable (Vicente,Silver SARA) Objective Vitals I&O Vital Signs Date Time Temp Pulse Resp B/P Pulse Ox O2 Delivery O2 Flow Rate FiO2 01/19/16 15:34 100 30 01/19/16 14:00 114 01/19/16 12:51 18 01/19/16 12:35 99 30 01/19/16 12:00 98.1 114 27 144/75 93 01/19/16 12:00 114 01/19/16 12:00 30 01/19/16 10:00 106 01/19/16 09:48 20 01/19/16 09:33 100 30 01/19/16 08:00 98.0 104 16 126/68 100 01/19/16 08:00 30 01/19/16 08:00 104 01/19/16 06:00 101 01/19/16 04:00 110 01/19/16 04:00 98.2 110 14 154/84 98 01/19/16 04:00 100 30 01/19/16 04:00 30 01/19/16 02:00 105 01/19/16 01:00 100 30 01/19/16 00:00 107 01/19/16 00:00 97.9 107 19 154/86 100 01/19/16 00:00 30 01/18/16 22:00 100 30 01/18/16 22:00 107 01/18/16 20:00 95 01/18/16 20:00 97.8 98 15 139/78 99 01/18/16 20:00 30 01/18/16 19:37 99 30 01/18/16 16:00 30 01/18/16 16:00 98.2 102 11 133/81 98 I/O 01/18/16 01/18/16 01/18/16 01/19/16 01/19/16 01/19/16 07:00 15:00 23:00 07:00 15:00 23:00 Intake Total 490 ml 416 ml 540 ml 619 ml 678 ml Output Total 520 ml 555 ml 440 ml 335 ml 655 ml Balance -30 ml -139 ml 100 ml 284 ml 23 ml Intake Oral 0 ml 0 ml IV Total 490 ml 416 ml 372 ml 429 ml 576 ml Tube Feeding 0 ml 48 ml 70 ml 82 ml Tube Irrigant 20 ml Other 120 ml 120 ml Output Urine Total 425 ml 400 ml 400 ml 300 ml 500 ml Stool Total 30 ml 0 ml 0 ml 10 ml Drainage Total 65 ml 155 ml 40 ml 35 ml 145 ml Laboratory Laboratory Tests Test 01/19/16 01/19/16 04:02 12:30 White Blood Count 16.3 Red Blood Count 2.47 Hemoglobin 7.3 Hematocrit 22.9 Mean Corpuscular Volume 92.5 Mean Corpuscular Hemoglobin 29.6 Mean Corpuscular Hemoglobin 32.0 Concent Red Cell Distribution Width 17.9 Platelet Count 158 Mean Platelet Volume 10.9 Sodium Level 144 Potassium Level 4.6 Chloride Level 115 Carbon Dioxide Level 15.6 Anion Gap 13 Blood Urea Nitrogen 90 Creatinine 2.27 Estimat Glomerular Filtration 30 Rate Random Glucose 83 Calcium Level 8.2 Phosphorus Level 5.7 Magnesium Level 2.0 Total Bilirubin 1.8 Aspartate Amino Transf 40 (AST/SGOT) Alanine Aminotransferase 28 (ALT/SGPT) Alkaline Phosphatase 280 Total Protein 4.7 Albumin 1.1 Urine Eosinophils NONE SEEN Urine Random Creatinine 18.3 Imaging Last Impressions Chest X-Ray 01/16/16 0600 Signed Impressions: Service Date/Time: Saturday, January 16, 2016 03:01 - CONCLUSION: No appreciable change. Freddy oCnnor MD Abdomen/Pelvis CT 01/06/16 0000 Signed Impressions: Service Date/Time: Wednesday, January 06, 2016 22:07 - CONCLUSION: 1. Over the last day there is development of a large mass in the left upper quadrant measuring up to 18 x 13 cm which appears to be associated with the stomach. The mass is characterized by somewhat concentric areas of decreased and increased attenuation with multiple locules of air. Primary differential diagnosis is hemorrhage into the gastric wall with gastric pneumatosis and possibly gastric ischemia. Gastrostomy is again noted anteriorly. 2. Remainder the exam is relatively stable with drainage tube left upper quadrant, splenectomy, bilateral effusions, feeding jejunostomy and drain within the pelvis. There is also diffuse anasarca and nonobstructing renal calculi. Nomi Falcon MD Chest CT 01/05/16 0000 Signed Impressions: Service Date/Time: Tuesday, January 05, 2016 23:15 - CONCLUSION: 1. Persistent left lower lobar consolidation. Improved consolidative infiltrates in the right lower lung. 2. Interval increase size bilateral pleural effusions , left greater than right. Osmar Alegria MD Celiac/Hepatic Arteriogram 12/27/15 0000 Signed Impressions: Service Date/Time: December 13:41 - CONCLUSION: 1. No active GI bleed identified. Robert Mckinney MD Abdomen X-Ray 12/18/15 0000 Signed Impressions: Service Date/Time: Friday, December 18, 2015 16:05 - CONCLUSION: Feeding tube tip is at the gastric antrum. Arnaldo Elias MD Head CT 12/02/15 1013 Signed Impressions: Service Date/Time: Wednesday, December 02, 2015 11:00 - CONCLUSION: 1. No intracranial abnormality is seen. 2. Air-fluid level in the right maxillary sinus. Arnaldo Reyes MD Physical Exam HEENT: Normocephalic; atraumatic; no jaundice. CHEST: Resp. shallow, diminished. Tracheostomy, course breath sounds CARDIAC: ST ABDOMEN: Soft, nondistended. J tube . Midline drsg d/i, BEV drain x 2RLQ ileostomy with dark green stool EXTREMITIES: Generalized edema. RUE wound vac SKIN: Drsg to RUE, LUE, BLE.- multiple ecchymotic areas MACHINE SHORTHAND REPORTER: Awake, lethargic, generalized weakness (Silver Zhang) Assessment and Plan Plan ASSESSMENT: - Drop in Hgb. Reconsulted for significant drop in Hgb overnight from 9.2/28.7 to 6.6/20.6 yesterday. S/P EGD (01/17/16)----> Gastric ulcers,gastritis, thickened gastric fold. Pathology pending. Protonix Gtt. - Upper GI bleed/Gastric Ulcers. S/P EGD (12/27/15)-----> Large clots filling the stomach. There was active bleeding from small ulcerations next to the PEG tube that was cauterized and injected with lidocaine. Next to that area, about 1-2 cm, there was a large deep ulcer which was actively bleeding, injected with lidocaine and cauterized. Significant amount of the stomach was grayish in color, possible ischemia, significant esophagitis. Went for angiogram with selective injection of the celiac origin, left gastric, gastroepiploic and SMA- No active GI bleed identified (12/27/15). S/P Exploratory laparotomy, MAKENZIE, gastrotomy with ligation of gastric ulcer, VAC placement (01/07/16). - Severe anemia. 8.0/24.9. - Perforated right colon sec. to colitis, s/p ex-lap, extended right hemicolectomy with primary ileocolic anastomosis, washout, open abdomen (12/18) per surgery. Path suspicious for Ischemic vs. CDifficilie. S/P Exp. lap with subtotal colectomy (12/20). - GERD, requiring daily antacids at home. PPI. - Severe sepsis with worsening leukocytosis - RUE infection/wound. Per plastics/ID - Resp. Failure. S/P Tracheostomy Per [facility]/Electrolyte abnormalities. Creat 2.38 - Chronic hepatitis C. S/P tx with Interferon/Ribavirin 6-7 years ago. reports that he was undetectable during treatment, but did not have a sustained virological response. He has never been told that he has liver cirrhosis. Liver biopsy (04/14/08)----> chronic hepatitis C with mild periportal inflammation grade 2 and mild fibrous portal expansion stage 1. He does not drink ETOH. 01/19/16- No obvious bleeding reported, hgb stable, will monitor, tolerating TF okay, this is at 20 ml/hr now. PLAN: - Jevity 1.5 at 60cc/hr - Await pathology - Cont. Protonix Gtt - Avoid NG tube - May resume anticoagulation as necessary but no NSAIDs - Repeat EGD in 2 months - Supportive care - Notify GI of active bleeding. - Further recommendations to follow based on results of above - Pt seen and examined by Dr. Sanchez and myself and this note is written on his behalf (Silver Zhang) Physician Comments Patient seen and examined Agree with above Continue with current supportive care Monitor labs (Con Sacnhez MD) Silver Zhang Jan 19, 2016 15:50 Con Sanchez MD Jan 19, 2016 19:52
--- NOTE | 2016-01-19 20:13 | HHI.PR ---
Subjective Subjective Notes Uneventful night; no bleeding. Tolerating TF at 30 ml/hr Objective Vitals/I&O Vital Signs Date Time Temp Pulse Resp B/P Pulse Ox O2 Delivery O2 Flow Rate FiO2 01/19/16 19:49 100 40 01/19/16 18:34 21 01/19/16 18:00 110 01/19/16 16:00 98.6 138/70 01/18/16 12:00 T-piece 4.00 Labs Laboratory Tests Test 01/19/16 01/19/16 04:02 12:30 White Blood Count 16.3 Red Blood Count 2.47 Hemoglobin 7.3 Hematocrit 22.9 Mean Corpuscular Volume 92.5 Mean Corpuscular Hemoglobin 29.6 Mean Corpuscular Hemoglobin 32.0 Concent Red Cell Distribution Width 17.9 Platelet Count 158 Mean Platelet Volume 10.9 Sodium Level 144 Potassium Level 4.6 Chloride Level 115 Carbon Dioxide Level 15.6 Anion Gap 13 Blood Urea Nitrogen 90 Creatinine 2.27 Estimat Glomerular Filtration 30 Rate Random Glucose 83 Calcium Level 8.2 Phosphorus Level 5.7 Magnesium Level 2.0 Total Bilirubin 1.8 Aspartate Amino Transf 40 (AST/SGOT) Alanine Aminotransferase 28 (ALT/SGPT) Alkaline Phosphatase 280 Total Protein 4.7 Albumin 1.1 Urine Eosinophils NONE SEEN Urine Random Creatinine 18.3 Radiology Last Impressions Chest X-Ray 12/28/15 0000 Signed Impressions: Service Date/Time: Monday, December 28, 2015 14:23 - CONCLUSION: Large left pleural effusion and left lung base consolidation. Freddy Connor MD Abdomen/Pelvis CT 12/19/15 0000 Signed Impressions: Service Date/Time: Saturday, December 19, 2015 10:57 - CONCLUSION: 1. Adjacent volume pneumoperitoneum is observed consistent with perforation of a hollow viscus. This is presumably colonic in origin due to the diffuse inflammatory process involving the colon. I do not clearly identify the source of the pneumoperitoneum however. There is mild dilatation of the small bowel likely an ileus in nature. A significant volume of ascitic fluid is noted. 2. Bibasilar atelectasis and bilateral pleural effusions. 3. Small pericardial effusion. 4. Small bilateral nonobstructing renal calculi. 5. I spoke with Dr. Sanchez concerning the findings. Osmar Chavez Jr., MD Abdomen X-Ray 12/18/15 0000 Signed Impressions: Service Date/Time: Friday, December 18, 2015 16:05 - CONCLUSION: Feeding tube tip is at the gastric antrum. Arnaldo Elias MD Chest CT 12/14/15 0000 Signed Impressions: Service Date/Time: Monday, December 14, 2015 06:12 - CONCLUSION: 1. Cardiomegaly with bilateral consolidation, likely CHF. Pneumonia cannot be excluded. 2. Small right pleural effusion. Wojciech Lockhart MD Head CT 12/02/15 1013 Signed Impressions: Service Date/Time: Wednesday, December 02, 2015 11:00 - CONCLUSION: 1. No intracranial abnormality is seen. 2. Air-fluid level in the right maxillary sinus. Arnaldo Reyes MD Lungs: Clear Abdomen: Non-distended Narrative Exam wound clean with minimal drainage present. Daysi intact A/P Problem List: (1) Dependent on ventilator (2) Open wound of abdomen (3) Ileostomy in place (4) Jejunostomy tube present (5) S/P total colectomy (6) Acute colitis (7) Gastrostomy tube in place Assessment and Plan A/P Problem List: (1) Dependent on ventilator (2) Open wound of abdomen (3) Ileostomy in place (4) Jejunostomy tube present (5) S/P total colectomy (6) Acute colitis (7) Gastrostomy tube in place Assessment and Plan 55 year old male s/p ex lap; s/p colectomy; G/J tube placement and would vac change No further bleeding, although Hb drifting down. Increase TF; goal rate of 60-80ml/hr. Discussed situation with and plans. Problem Qualifiers (1) Open wound of abdomen: Qualified Code: S31.109D - Open wound of abdomen, subsequent encounter Owen Soto MD Jan 19, 2016 20:13
[2016-01-20] VITALS (22 sets, daily range): BP systolic 131–168; BP diastolic 67–84; PULSE 92–123; RESP 12–26; TEMP 97.9–99.2; O2SAT 95–100
[2016-01-20] MEDS: oxyCODONE HCL ORAL CONC 20 MG/ML SYRINGE PO SCH ×6 (01:08→20:11)
[2016-01-20] MEDS: RESP: ALBUTEROL 2.5 MG/IPRATROPIUM 0.5 MG NEB (SCH) NEB ×4 (03:20→21:04)
[2016-01-20] MEDS: CHLORHEXIDINE GLUCONATE 2 % 1 PACK (2 CLOTHS) TOP SCH (04:00)
[2016-01-20 04:58] LABS: BICARBONATE 16.4 MEQ/L (21.0-32.0); POTASSIUM 4.4 MEQ/L (3.5-5.1)
[2016-01-20] MEDS: METOPROLOL TARTRATE 5 MG/5 ML VIAL IV PUSH SCH (05:50)
[2016-01-20] MEDS: PANTOPRAZOLE SODIUM 40 MG VIAL IV PUSH SCH ×2 (05:50→18:28)
[2016-01-20] MEDS: INSULIN ASPART SUPPLEMENTAL SCALE SQ SCH ×4 (05:51→18:00)
[2016-01-20] MEDS: HYDROmorphone HCL PF 2 MG/ML VIAL IV PUSH PRN ×2 (06:45→10:00)
[2016-01-20] MEDS: POVIDONE IODINE 10% OINT 30 GM TUBE TOPICAL SCH (09:00)
[2016-01-20] MEDS: FERROUS SULFATE 300 MG /5ML UDC TUBE SCH ×2 (10:01→20:10)
[2016-01-20] MEDS: predniSONE 10 MG TAB NG SCH (10:02)
[2016-01-20] MEDS: CHLORHEXIDINE 0.12% (ORAL KIT) 15 ML CUP MT SCH ×2 (10:02→20:12)
[2016-01-20 10:41] LABS: MEAN CELL VOLUME 93.9 FL (80.0-100.0); MEAN CORPUSCULAR HEMOGLOBIN 29.1 PG (27.0-34.0); PLATELET COUNT 170 TH/MM3 (150-450); RED BLOOD COUNT 2.45 MIL/MM3 (4.50-5.90); RED CELL DISTRIBUTION WIDTH 18.6 % (11.6-17.2); REVIEW FLAG FINAL; WHITE BLOOD COUNT 19.7 TH/MM3 (4.0-11.0)
--- NOTE | 2016-01-20 11:44 | HHI.PR ---
Subjective Subjective Notes opens eyes, communicates, on minimal vent support. Has pain, but says pain meds effective. Tolerating TF at 50 ml / hr. Objective Vitals/I&O Vital Signs Date Time Temp Pulse Resp B/P Pulse Ox O2 Delivery O2 Flow Rate FiO2 01/20/16 10:28 99 40 01/20/16 08:00 98.1 120 22 168/81 01/18/16 12:00 T-piece 4.00 Labs Laboratory Tests Test 01/19/16 01/20/16 01/20/16 12:30 04:31 10:15 Urine Eosinophils NONE SEEN Urine Random Creatinine 18.3 Sodium Level 143 Potassium Level 4.4 Chloride Level 113 Carbon Dioxide Level 16.4 Anion Gap 14 Blood Urea Nitrogen 91 Creatinine 2.18 Estimat Glomerular Filtration 32 Rate Random Glucose 122 Calcium Level 8.1 Phosphorus Level 5.9 White Blood Count 19.7 Red Blood Count 2.45 Hemoglobin 7.1 Hematocrit 23.0 Mean Corpuscular Volume 93.9 Mean Corpuscular Hemoglobin 29.1 Mean Corpuscular Hemoglobin 31.0 Concent Red Cell Distribution Width 18.6 Platelet Count 170 Mean Platelet Volume 10.7 Radiology Last Impressions Chest X-Ray 12/28/15 0000 Signed Impressions: Service Date/Time: Monday, December 28, 2015 14:23 - CONCLUSION: Large left pleural effusion and left lung base consolidation. Freddy Connor MD Abdomen/Pelvis CT 12/19/15 0000 Signed Impressions: Service Date/Time: Saturday, December 19, 2015 10:57 - CONCLUSION: 1. Adjacent volume pneumoperitoneum is observed consistent with perforation of a hollow viscus. This is presumably colonic in origin due to the diffuse inflammatory process involving the colon. I do not clearly identify the source of the pneumoperitoneum however. There is mild dilatation of the small bowel likely an ileus in nature. A significant volume of ascitic fluid is noted. 2. Bibasilar atelectasis and bilateral pleural effusions. 3. Small pericardial effusion. 4. Small bilateral nonobstructing renal calculi. 5. I spoke with Dr. Sanchez concerning the findings. Osmar Chavez Jr., MD Abdomen X-Ray 12/18/15 0000 Signed Impressions: Service Date/Time: Friday, December 18, 2015 16:05 - CONCLUSION: Feeding tube tip is at the gastric antrum. Arnaldo Elias MD Chest CT 12/14/15 0000 Signed Impressions: Service Date/Time: Monday, December 14, 2015 06:12 - CONCLUSION: 1. Cardiomegaly with bilateral consolidation, likely CHF. Pneumonia cannot be excluded. 2. Small right pleural effusion. Wojciech Lockhart MD Head CT 12/02/15 1013 Signed Impressions: Service Date/Time: Wednesday, December 02, 2015 11:00 - CONCLUSION: 1. No intracranial abnormality is seen. 2. Air-fluid level in the right maxillary sinus. Arnaldo Reyes MD Cardiovascular: Regular Lungs: Clear, Other (trach site with mninimal drainage.) Abdomen: Non-distended, Other (RLQ ostomy with thick brown output. Midline incision with some nicky intact, wound openings, clean and granulating. No erythema.One drain yellow serous, about 80- ml in bulb, the other drain with very small amount of green purulent fluid. ) Extremities: No edema, Perfused, SCD's on, Other (dressings dry and intact around lower legs.) A/P Problem List: (1) Dependent on ventilator (2) Open wound of abdomen (3) Ileostomy in place (4) Jejunostomy tube present (5) S/P total colectomy (6) Acute colitis (7) Gastrostomy tube in place Assessment and Plan Postop surgery for colon and upper Gi bleed. C diff colitis. Overall appears stable from surgical standpoint, tolerating tube feeds well. Continue current support, discussed with patient and daughter at bedside. Problem Qualifiers (1) Open wound of abdomen: Qualified Code: S31.109D - Open wound of abdomen, subsequent encounter Ramone Wise MD Jan 20, 2016 11:44
[2016-01-20] MEDS: FLUCONAZOLE 400 MG PREMIX BAG 200 ML IV SCH (12:39)
[2016-01-20] MEDS: NEOMYCIN/POLYMYXIN/BACITRACIN OINT 15 GM TUBE TOPICAL SCH ×2 (12:40→20:11)
--- NOTE | 2016-01-20 13:39 | HHI.CCPN ---
Subjective Remarks/Hospital Course 55-year-old male brought by EMS with altered mental status. He has been confused for 2 days but this morning has been the worst. He has history of chronic opiate medications including methadone and morphine that he takes for pain management and hence they gave him Narcan IV which brought the GCS up to 13. The blood glucose was 74. He has open wounds from his right upper and bilateral lower extremities. He has history of hepatitis C. Last week he was pealing and eating shrimps. Bedside blood sugar was 76 in the ER. He was tachycardic in 1 teens and was intubated in the ED for airway protection. Admitted to ICU with sepsis due to Staph Aureus hand infection and E. Coli bacteriemia. 12/05 Patient remains sedated with Fentanyl and intubated. On Levophed 3 mics, Vasopressin 0.03 mics and Bicarb drip. T:99.8 TF placed on hold OGT to LIWS last night - gastric drainage 525ml overnight. 12/06 Patient is sedated with Fentanyl and intubated, On Levophed 3 mics, off vasopressin. Gastric output 400ml in 24 hrs. KUB abdomen yesterday mildly distended colon otherwise non specific KUB. 12/07 Patient is off sedation remains intubated tolerated CPAP for most day yesterday. Afebrile. on no drips, tolerating tube feeds. 12/08 Patient went to OR yesterday for debridement and irrigation of right forearm and wound VAC placement. Given 2U PRBC and 2u PLT yesterday and currently receiving 1of 2 u additional PRBC. Hgb 7.7, PLT 43 this morning. Patient also started on pressors now on Levophed 10 mics. Vasopressin 0.04 mics. On no sedation. 12/09 Patient remains intubated off pressors, Afebrile. Tolerating tube feeds. Afebrile. 12/10 Patient is sedated with Fentanyl and intubated. Awake and follows commands off sedation. Afebrile. 12/11 Patient had ?SVT overnight given Lopressor 2.5mg IV x1, Remains intubated and sedated with Fentanyl. Afebrile. Tolerating TF. 12/12 Patient spoked fever last night with T: 101.5, sedated with Fentanyl and intubated. 12/13 Patient had an episode of desaturation overnight required increase FIO2/ PEE now on ACV with RR 14, TV 550, PEEP: 12, FIO2 60% with sats 100% CT chest performed overnight showed b/l consolidation and small pleural effusion. Had T: 100.0 last night. 12/14 Tolerating PS 15/CPAP 10 FiO2 40% with rSBI 38, weaning. . Awake and alert , following commands. Hypotensive overnight and levophed restarted up to 12 mcg/ min. Nurse has been weaning throughout the day. Suspected adrenal insufficiency as he was on prednisone as outpatient for gout and has not been on stress dose steroids. Given decadron. 12/15 Transfused 1 unit PRBC for Hgb 7.0 yesterday, 1 unit PRBC for Hgb 6.6 today and now Hgb 8.3. Does not clinically have e/o active GI bleeding and wound vac output nonbloody. Stool 1500 output, C diff negative. No abdominal pain. Remains Awake and alert, remained on CPAP 10/5 last night and is now tolerating CPAP 5/5. 12/16: Extubated yesterday tolerating well. Breathing comfortably. Able to follow commands. UO 1.8 L in 24 hours. Na slightly increased to 153. 12/17: Significantly worse this AM. WBC up to 28 from 16. Hgb 5.2 from 7.9. tachycardic. pale this AM. states he feels tired. Continues on BiPAP. Plan for debridement of his arms today. LIJ CVL does not have any signs of overt infection. 12/18: Blood cell count continues to rise today to 30 from 28. Required 1 unit of blood for hemoglobin of 6.6 which improved to 7.7 this morning. However, patient remains tachycardic in the 120s and significantly pale. CT abdomen and pelvis ordered and pending. Tachypneic with respiratory rate in the 30s. Only small amount of dark tarry stool yesterday with approximately 300 cc of stool output. C. difficile toxin negative 3. After discussion with infectious disease, restart vancomycin, cefepime, Flagyl, micafungin. Horn cultures are pending. Per discussion with GI, will not scope as endoscopy is high risk given his tenuous respiratory status this point. Slightly worse hypernatremia as well as worsening acute kidney injury this morning. 12/19: POD 1 s/p ex-lap, washout for perforated ascending colon with extended right hemicolectomy, primary ileocolic anastamosis, open abdomen, septic shock, acute hypoxic and hypercarbic respiratory failure. Significantly critically ill overnight: required 6L ivf resuscitation, 1 unit prbc, norepinephrine, vasopressin, stress dose hydrocortisone. This morning, remains on high-dose vasopressors. still has large volume ivf requirement. Significant SIRS response. Vent requirements increasing with all this volume resuscitation, PEEP up to 10. He remains critically ill, and although I do believe we have surgical source control, I anticipate he will continue to clinically decline before he starts to make improvements. 12/20: Off pressors. follows commands on sedation holiday. +11L over last 3 days during acute illness, +22L since admission. We are going to have to get some of this volume back before we are able to close him given his severe anasarca. 12/21: Taken back to the OR yesterday afternoon for washout and completion colectomy. Postoperatively was significantly under resuscitated as well as had ongoing active oozing. Patient was coagulopathy. The patient was in distributive and hemorrhagic shock. The patient was given multiple units of blood products overnight. Patient was thrombocytopenic, hypofibrinogenemic, coagulopathic. Given significant volume of blood product resuscitation: 24h blood products: 13 prbc 8 ffp 2 plt 1 10-pack cryo This morning continues to have significant amount of bright red output out of his BEV and wound VAC, approximately 500 cc an hour out of his wound VAC, and approximately 75 an mils every 10 minutes out of a BEV. I discussed with surgery and we will correct his coagulopathy and plan to go back to the OR for exploration early this afternoon. 12/22: Clinically starting to improve hemodynamically. off vasopressors. Net+ 26L. CVP rising to 14. UOP adequate. Hgb 7 this AM. 12/23 Seen postop. Hypertensive, BP improved with additional pain medicine. Remains net positive but urine output excellent 3L in 24 hours. Remains on Lasix gtt. went to OR today status post wound VAC change and partial closure 12/24: Fascia was closed yesterday. Wound Vac in place. Remains sedated. -2L negative balance, but with increasing BUN/creat. Discontinue Bumex infusion, start scheduled Bumex 2 mg IV every 12 with IV albumin. 12/25: Overnight became hypotensive requiring Levophed to be restarted. Hemoglobin dropped to 4.1. Noted to have bloody drainage from G-tube and dorsal ileostomy with black stool output 12/26: s/p EGD yesterday-2 gastric ulcers bleeding, stomach a significant part had decreased discoloration indicating probable ischemia. s/p epi injection and cauterization. Continues to have coffee ground G tube output, black tarry Ileostomy output. Hemoglobin down to 6.4 getting 2 units of PRBC. GI recent recommending intervention radiology consult. 12/27: For trach today. Meds ordered. Hgb decline consistent with recent transfusions and senescent cells. 12/28: Trach clean, dry. Start SBTs. Check prealbumin. Continue TPN. 12/29: Looks in direction of voice. I have not seen more purposeful reactions. Line > 12 days old, replace today. Prealbumin 20 - good response to TPN. 12/30: Remains vented, encephalopathic, puss like drainage from left hand, WBC increased 01/01: no significant changes. continues to remain critically ill with minimal improvements over the last week. abdomen closed. still total body volume overloaded. 01/02: more awake today than yesterday. continues to be critically ill with minimal improvements overall. need to look towards placement. -900 yesterday. 01/03: up in chair yesterday. tolerated short run of SBT 15/5/40%. net euvolemic. wbc downtrending. 01/04: wbc slightly uptrended 33 from 30, more acidotic on BMP (14 from 20). Also spiking fevers to 102.3 despite tylenol. continues on broad spectrum abx. yesterday's cxr had what may be a new LLL infiltrate. today, though, he is following commands and more awake and alert. 01/05: LLL pna clinically and based on bronch. CT c/a/p done last night without any significant intra-abdominal change. small left pleural effusion which appears simple in nature, and LLL consolidation. ID broadened abx. today , wbc downtrending. culture data pending. Hgb 7 this AM. 01/06: Underwent exploratory laparotomy last night with findings of bleeding gastric ulcer which was oversewn by Dr. Verdin abdomen left open with wound VAC in place. Received 3 units PRBCs overnight. Remains on Wesley-Synephrine drip this morning for hypotension. Remains sedated, on mechanical ventilation. 01/07: Remains sedated, on mechanical ventilation. For abdominal incision site closure today. Significant positive fluid balance over the last 2 days. Off pressors currently. Lasix to mobilize fluid. 01/08: Remains sedated, on mechanical ventilation via tracheostomy. Underwent abdominal incision site closure this morning. Remains off pressors. Anasarca noted. Blood cultures from 01/04 growing Nava parapsilosis. 01/09: Drowsy/sedated, arousable, on mechanical ventilation via tracheostomy. TPN started yesterday. To be started on J-tube feeds per discussion with surgery 01/10: Sedated, arousable, on mechanical ventilation via tracheostomy. Remains on TPN. J-tube feeds being started today. 01/11: Was on T piece yesterday and rested on C Pap overnight. On TPN. Advanced J-tube feeds to 20 cc an hour today. Attempt T piece as tolerated. 01/12: Awake, tracks with his eyes. On C Pap overnight. Tolerated T piece during daytime yesterday. 01/13: Awake and alert. Was on T piece all day yesterday and was placed back on C Pap at 1:45 AM this morning. Does not appear to be in any acute distress. Tolerating J-tube feeds at 20 cc per hour. 01/14: Drowsy, easily arousable. Was on T piece all day yesterday and rested on C Pap at night. Tolerating J-tube feeds at 40 cc an hour with goal of 60 cc per hour. On TPN which will be discontinued after current bag. BEV drain with cloudy drainage. 01/15 Was placed back on ACV yesterday around 9 am due to tachypnea and remained on ACV overnight. Now on CPAP 11/20 and tolerating. BEV in lower abdomen had purulent output yesterday but RN states looks better today. Tolerating tube feeds, stool in ostomy. Off TPN. Removing CVL. 01/16 Hgb 6.6 on CBC this morning, lab draw, repeat pending. Tachycardia persists but otherwise no hemodynamic change. The NGT output yesterday was bilious, today brown/slight coffee grounds but mostly clear. No blood from BEV' s.Has been tolerating jejunal tube feeds, placed on hold for now. Has been tolerating CPAP 10/5 with RSBI 10s. GI/General surgery updated. 01/17 Hemoglobin 8.0. EGD performed yesterday showing gastric ulcers with no active bleeding. Abdominal wound dressing change today. Plan to begin trickle feeds today per general surgery. 01/18 Hgb 7.3. Tolerating trickle feeds that were resumed per general surgery.Tolerated Tpiece 2 hours yesterday. On CPAP 8/5 overnight. Now on Tpiece about 1 hour and doing well. Will continue intermittent Tpiece trials throughout the day with rest on CPAP in between. Watching off abx; cefepime discontinued 01/16. Remains on fluconazole for candidemia. Subjective: 01/19 Trach developed cuff leak overnight. I exchanged Trach at bedside this morning. Tolerated Tpiece 2 hours, now resting on CPAP 8/5. Doing 2 piece trials up to 2 hours as tolerated tid and then plan to start extending duration of Tpiece trials from there. Tolerating tube feeds. Objective Vital Signs Date Time Temp Pulse Resp B/P Pulse Ox O2 Delivery O2 Flow Rate FiO2 01/20/16 12:00 122 01/20/16 12:00 40 01/20/16 12:00 98.4 20 131/67 98 01/20/16 11:52 T-piece 7.00 Intake and Output 01/19/16 01/19/16 01/19/16 07:59 15:59 23:59 Intake Total 619 ml 678 ml 563 ml Output Total 335 ml 655 ml 545 ml Balance 284 ml 23 ml 18 ml Result Diagram: 01/20/16 1015 01/20/16 0431 Imaging Last 48 hours Impressions Chest X-Ray 01/07/16 0000 Signed Impressions: Service Date/Time: Thursday, January 07, 2016 04:23 - CONCLUSION: Worsening consolidation or atelectasis at the left mid and lower lung. Some degree of left effusion may also be contributing to this. Arnaldo Reyes MD Chest X-Ray 01/06/16 0000 Signed Impressions: Service Date/Time: Wednesday, January 06, 2016 19:46 - CONCLUSION: 1. Basilar airspace disease improved from January 04. Tracheostomy and right central line in satisfactory position. oNmi Falcon MD Abdomen/Pelvis CT 01/06/16 0000 Signed Impressions: Service Date/Time: Wednesday, January 06, 2016 22:07 - CONCLUSION: 1. Over the last day there is development of a large mass in the left upper quadrant measuring up to 18 x 13 cm which appears to be associated with the stomach. The mass is characterized by somewhat concentric areas of decreased and increased attenuation with multiple locules of air. Primary differential diagnosis is hemorrhage into the gastric wall with gastric pneumatosis and possibly gastric ischemia. Gastrostomy is again noted anteriorly. 2. Remainder the exam is relatively stable with drainage tube left upper quadrant, splenectomy, bilateral effusions, feeding jejunostomy and drain within the pelvis. There is also diffuse anasarca and nonobstructing renal calculi. Nomi Falcon MD Last Impressions Chest X-Ray 12/17/15 0600 Signed Impressions: Service Date/Time: Thursday, December 17, 2015 03:25 - CONCLUSION: Persistent left lower lobe consolidation. Osmar Alegria MD Chest CT 12/14/15 0000 Signed Impressions: Service Date/Time: Monday, December 14, 2015 06:12 - CONCLUSION: 1. Cardiomegaly with bilateral consolidation, likely CHF. Pneumonia cannot be excluded. 2. Small right pleural effusion. Wojciech Lockhart MD Abdomen X-Ray 12/06/15 0000 Signed Impressions: Service Date/Time: November 09:53 - CONCLUSION: Nonspecific KUB. Air is seen within a mildly distended colon but contrast is clearly seen in the rectum. Arnaldo Reyes MD Abdomen/Pelvis CT 12/04/15 0000 Signed Impressions: Service Date/Time: Friday, December 04, 2015 16:24 - CONCLUSION: 1. Mildly distended small bowel in the mid and lower abdomen. Contrast is clearly seen extending into the distal small bowel and ascending colon so a complete obstruction is not seen. A transition point is not seen. This pattern likely represents an ileus versus a partial obstruction. 2. Multiple nonobstructing renal stones. 3. Abnormal appearance of the spleen which appears to represent a splenule. It could be correlated if the patient has had either primary splenic removal or splenic injury and this is what is either left of the spleen or a developing splenule. This is likely of no significance. 4. Mild ascites. 5. Increased density within the gallbladder representing either tumefactive sludge or noncalcified stones. 6. Mild bilateral pleural effusions with prominent areas of lower lobe atelectasis or consolidation at the bases bilaterally. 7. Subacute to chronic bilateral rib fractures and multiple compression fractures in the lower thoracic and lumbar spine as described above. The patient does have a prior CT examination from 08/26/2014. All the compression deformities described above are new when compared to that scan. Arnaldo Reyes MD Head CT 12/02/15 1013 Signed Impressions: Service Date/Time: Wednesday, December 02, 2015 11:00 - CONCLUSION: 1. No intracranial abnormality is seen. 2. Air-fluid level in the right maxillary sinus. Arnaldo Reyes MD Objective Remarks Jevity 1.5 @ 10 mL per hour GENERAL: Middle-aged chronically critically ill-appearing male, lying in bed, on Tpiece via trach. HEENT: NCAT. mucous membranes moist. NECK: trach in place. obese neck. difficult to assess JVD. RESPIRATORY: On tpiece, . Breath sounds present bilaterally, scattered rhonchi , diminished bibasilar, no wheezing . CARDIOVASCULAR: regular, tachycardic ~110-121. Sinus tach on monitor. No murmurs rubs or gallops. GASTROINTESTINAL: J tube in place with tube feeds running . Gauze dressings in place inferior aspect of midline incision. L side BEV drain in mid lower abdomen with with cloudy drainage. BEV mid lower abdomen with serous drainage. Ostomy with soft melena. Hypoactive bowel sounds. MUSCULOSKELETAL: Generalized anasarca, doughy pitting edema 2+ bilateral feet. Multiple open wounds in the lower extremity, without exudate (observed on 01/15 , today have been wrapped in gauze) RUE - with wound vac in place over right arm with mostly serous, very slightly sanginous output. L upper extremity dressing in place; L forearm. NEURO: Awake, opens eyes spontaneously, makes eye contact and smiles. Moves bilateral feet to command. 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 - fentanyl patch 75mcg/h q3d for long acting pain control. - Liquid tylenol 650mg per tube q6h discontinued in view of increasing bilirubin - Dilaudid 2mg iv q4h prn for breakthrough pain. - oxycodone 20mg per tube q4h scheduled. Respiratory Acute respiratory failure-extubated 12/16/15, reintubated for surgery 12/18 Acute hypoxic and hypercarbic respiratory failure Acute healthcare associated pneumonia- resolved NIGEL on home CPAP - Perc Tracheostomy 12/27 (Dr. Miller). Trach exchanged 8.0 shiley with cuff on 01/19. - Vent bundle. Head of bed at 30 degrees. Duoneb q6h and prn. - Previously seemed to fatigue and decompensated after prolonged Tpiece up to 24 hours as tolerated. Now trying Tpiece trials up to 2 hours tid, and when tolerating, plan to extend duration of Tpiece trials. --CXR 01/15 - L pleural effusion. Bedside u/s shows small/moderate pleural effusion but will hold off on bedside thoracentesis at this time. Continue fluid mobilization with lasix. CV Hemorrhagic shock- resolved Septic Shock- resolved Volume overload - keep map > 65 mmHg. - Cortisol level 14 on 12/14 - Stopped stress dose hydrocortisone on 01/12 and started prednisone 10 mg daily 01/13. If hemodynamics changing or if returns to OR would need stress dose hydrocortisone again. - Echo 12/07 EF 65-70%, grade I diastolic dysfunction -D/c Metoprolol 2.5 mg IV every 8 hours and change to metoprolol 12.5 per tube q8 hours. FENRenal: DEIRDRE Hypernatremia (resolved) Hypophosphatemia Anasarca, third spacing. Severe hypoalbuminemia - Hypernatremia improved Following D5 @ 50 milliliters per hour, now off. Free water flush 100 q6 - Today will give Lasix 40 mg IV following 1 unit PRBC and give additional Lasix 40 mg IV at 0200 accompanied by albumin 25 gram. - Feurea never resulted, will check FEna before lasix. -Creatinine remains ~2.2. Urine eos negative. Off vancomycin. Avoid nephrotoxins. Phos is elevated following aggressive replacement. Will monitor. -Add multivitamin daily. GI Acute GIB, hemorrhagic shock (resolved, now with recurrent anemia but not shock) Perforated right colon with colitis s/p ex-lap, extended right hemicolectomy with primary ileocolic anastamosis, washout, open abdomen (12/18) s/p Ex lap 01/05 for bleeding gastric ulcer Acute protein calorie malnutrition- severe Chronic hepatitis C s/p interferon/ribavirin years ago. Liver biopsy 04/14/08 - EGD 12/26/15 showed 2 large gastric ulcers with active bleeding status post epinephrine infusion and cauterization - OR on 12/24 with Removal of VAC, washout, pancreatic drain and pelvic drain placement, gastrostomy, feeding jejunostomy and closure of abdomen with application of VAC device in the subcutaneous tissue. -to OR 01/05 with GI bleeding and hemorrhagic shock. Had bleeding gastric ulcer and pneumatosis of stomach. Underwent gastrotomy with ligation of gastric ulcer , lysis of adhesions, wound VAC placement -01/16 Endoscopy showed - ulcers at antrum and cardia without stigmata of bleeding and no exposed vessel. Granulation tissue at suture line without bleeding. Small ulceration there also without bleeding. Duodenum normal. At low risk for UGI bleeding per GI, okay for anticoagulation from their point of view. Avoid NSAIDS/ASA. NGT removed 01/16, to remain out per GI; Dr. Sanchez. Repeat EGD in 2 months per GI recs. -Prior TPN stopped 01/01. Again on TPN 01/08-01/14. -Protonix 40 g IV q12h -Discussed with Dr. Soto 01/18. Increased Jevity 1.5 goal rate at 60 mL per hour per nutrition recommendations. Heme: Acute Anemia secondary to acute blood loss Thrombocytopenia Hypofibrinogenemia secondary to consumption and acute blood loss Coagulopathy secondary to consumption and acute blood loss --monitor CBC --Hep PLT ab negative on 12/03 - Ferrous Sulfate 300 bid - transfused 3 units PRBCs 01/05- -Hgb of 6.6 on 01/16 was a lab error. The hemoglobin was 8.2 on recheck without any transfusion provided. -Hgb continues trickle down. Will transfuse 1 unit PRBC today in view of Hgb 7.1 and tachycardia increased to 120s (baseline is 104-110) ID Severe sepsis Necrotizing Fascitis - MSSA on wound culture 12/07. Ecoli bacteremia 12/01 MSSA bacteremia 12/05. Cleared on f/u blood culture 12/07, 12/12. Candidemia (blood culture 01/04 with Nava parapsilosis) Sepsis of Intra-abdominal origin. C. difficile toxic megacolon (based on pathology C diff vs ischemia, C diff test negative) --Debridement 12/01 p.m at bedside by Dr Pedro and Dr. Hartmann --R hand, forearm and olecranon bursa I and D and Wound vac 12/07 Dr Chavez. -- ABX per ID: Now on Fluconazole alone 01/09 #11 Previously: cefepime 12/17-01/16,flagyl IV 12/17-01/16 , Vancomycin 01/04-01/16 ( trough 20 on 01/15). Micafungin stopped per ID 01/08. Amphotericin B started by ID on 01/08 and stopped 01/09. Nava parapsilosis in blood culture from 01/04 most likely from an intra- abdominal source(central line was changed on 01/04). Last set of blood cultures have been negative. BEV drain with cloudy drainage 01/14. General surgery aware and following. Noted WBC up to 19, if continues uptrend or if evidence of recurrent sepsis off abx, will discuss repeat CT abd/pelvis with surgery. Seen by Dr. Wu 01/13 and no evidence of endogenous fungal endophthalmitis ID following, Dr. Becerra Wound care following for leg wounds. --12/17 blood cultures: NGTD 12/17 central line culture: NGTD 12/17 urine cultures: NGTD 12/17 sputum cultures: NGTD C. difficile toxin 12/17: Negative (3rd negative toxin screen) -01/04 Blood culture with nava parapsilosis 01/04: horn culture, bronch with BAL, 01/04: CT chest/abd/pelvis without contrast: LLL consolidation, otherwise unchanged. 01/04: clinically LLL VAP. 01/08 Blood cultures: no growth 01/09 blood culture peripheral - NGTD 01/12 sputum cutlure - neg 01/12 - urine culture NGTD. Endocrine: Hyperglycemia of Critical Illness Diabetes - off Insulin drip - Levemir BID on hold. - On low-dose insulin sliding scale with bedside glucose every 6 hours, not requiring coverage. Glucose at target. - Prednisone 10mg po daily since 01/13. Previously was on prednisone as an outpatient. Has been on hydrocortisone intermittently when he has gone to the OR or decompensated. Prophylaxis: GI Prophylaxis: -- Protonix IV BID DVT Prophylaxis: - SCDs Subcutaneous heparin on hold since 01/05. Remained on hold due to concern for bleeding. Patient has melena (which may be old) and ongoing anemia so will hold for now. ACCESS: --PIV. Patient needs PICC for ongoing meds/labs. Discussed with ID, will place if followup blood cultures negative from 01/19. Right IJ TLC 01/04-01/15 #12. PT/OT. OOB. Discussed with ASSISTANT CORPORATE SECRETARY at bedside. updated at bedside and multiple questions answered. Discussed with RT. This patient remains critically ill with one or more organ systems which are or may become a threat to life. I have spent in excess of 38 minutes discontinuously in the care and management of this patient. This time is exclusive of procedures, and includes, but is not limited to, evaluation of the patient, review of the medical record, discussions with family, consultants, nursing staff, or respiratory therapy, and documentation in the medical record. Problem Qualifiers (1) Respiratory failure: Qualified Code: J96.00 - Acute respiratory failure, unspecified whether with hypoxia or hypercapnia (2) Altered mental status: Qualified Code: R41.0 - Delirium (3) Sepsis: Qualified Code: A41.9 - Sepsis, due to unspecified organism Isabela Gonzalez MD Jan 20, 2016 13:39
[2016-01-20] MEDS ORDERED: SODIUM CHLOR 0.9% 250 ML INJ 250 ML IV ONE (14:30)
[2016-01-20] MEDS ORDERED: FUROSEMIDE 20 MG/2 ML VIAL IV ONE (14:30)
[2016-01-20] MEDS: METOPROLOL TARTRATE 25 MG TAB TUBE SCH ×2 (14:47→20:11)
[2016-01-20] MEDS: FREE WATER G-TUBE SCH (18:28)
--- NOTE | 2016-01-20 21:31 | HHI.GIFU ---
Subjective Remarks In bed appears to be comfortable tolerating tube feeds no evidence of bleeding Objective Vitals I&O Vital Signs Date Time Temp Pulse Resp B/P Pulse Ox O2 Delivery O2 Flow Rate FiO2 01/20/16 20:00 96 01/20/16 20:00 98.4 100 20 156/78 100 01/20/16 19:00 98.5 102 21 154/84 100 01/20/16 18:33 100 40 01/20/16 18:00 101 01/20/16 18:00 99.0 101 19 146/73 100 01/20/16 17:45 99.2 105 24 139/72 100 01/20/16 16:45 100 T-piece 6.00 50 01/20/16 16:00 94 01/20/16 16:00 40 01/20/16 16:00 98.8 101 26 139/72 100 01/20/16 15:45 20 01/20/16 15:24 100 40 01/20/16 14:00 100 40 01/20/16 14:00 120 01/20/16 12:00 122 01/20/16 12:00 40 01/20/16 12:00 98.4 122 20 131/67 98 01/20/16 11:52 99 T-piece 7.00 40 01/20/16 10:30 22 01/20/16 10:28 99 40 01/20/16 10:00 40 01/20/16 10:00 123 01/20/16 08:00 40 01/20/16 08:00 98.1 120 22 168/81 95 01/20/16 08:00 120 01/20/16 07:59 99 40 01/20/16 06:00 112 01/20/16 04:00 97.9 114 19 137/79 100 01/20/16 04:00 40 01/20/16 04:00 114 01/20/16 03:20 100 40 01/20/16 02:00 106 01/20/16 00:07 100 40 01/20/16 00:00 106 01/20/16 00:00 98.2 106 12 138/72 100 01/20/16 00:00 40 01/19/16 22:00 100 I/O 01/19/16 01/19/16 01/19/16 01/20/16 01/20/16 01/20/16 07:00 15:00 23:00 07:00 15:00 23:00 Intake Total 619 ml 678 ml 563 ml 532 ml 742 ml Output Total 335 ml 655 ml 545 ml 545 ml 750 ml Balance 284 ml 23 ml 18 ml -13 ml -8 ml Intake Oral 0 ml 0 ml IV Total 429 ml 576 ml 180 ml 126 ml 352 ml Tube Feeding 70 ml 82 ml 263 ml 286 ml 370 ml Tube Irrigant 20 ml 20 ml Other 120 ml 120 ml 120 ml Output Urine Total 300 ml 500 ml 425 ml 300 ml 550 ml Stool Total 10 ml 150 ml 50 ml Drainage Total 35 ml 145 ml 120 ml 95 ml 150 ml Laboratory Laboratory Tests Test 01/20/16 01/20/16 01/20/16 01/20/16 04:31 10:15 15:37 18:50 Sodium Level 143 Potassium Level 4.4 Chloride Level 113 Carbon Dioxide Level 16.4 Anion Gap 14 Blood Urea Nitrogen 91 Creatinine 2.18 Estimat Glomerular Filtration 32 Rate Random Glucose 122 Calcium Level 8.1 Phosphorus Level 5.9 White Blood Count 19.7 Red Blood Count 2.45 Hemoglobin 7.1 Hematocrit 23.0 Mean Corpuscular Volume 93.9 Mean Corpuscular Hemoglobin 29.1 Mean Corpuscular Hemoglobin 31.0 Concent Red Cell Distribution Width 18.6 Platelet Count 170 Mean Platelet Volume 10.7 Blood Type B POSITIVE Antibody Screen NEGATIVE Crossmatch Leukocyte-Reduced Red Blood Cells Blood Bank Comment Urine Random Creatinine LESS THAN 13.0 Urine Random Sodium 101 Date/Time Procedure Status Source Growth 01/20/16 15:37 Aerobic Blood Culture Received Blood Peripheral Pending 01/20/16 15:37 Anaerobic Blood Culture Received Blood Peripheral Pending Physical Exam HEENT: Normocephalic; atraumatic; no jaundice. CHEST: Resp. shallow, diminished. Tracheostomy, course breath sounds CARDIAC: ST ABDOMEN: Soft, nondistended. J tube . Midline drsg d/i, BEV drain x 2RLQ ileostomy with dark green stool EXTREMITIES: Generalized edema. 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 Reconsulted for significant drop in Hgb overnight from 9.2/28.7 to 6.6/20.6 yesterday. S/P EGD (01/17/16)----> Gastric ulcers,gastritis, thickened gastric fold. Pathology pending. Protonix Gtt. - Upper GI bleed/Gastric Ulcers. S/P EGD (12/27/15)-----> Large clots filling the stomach. There was active bleeding from small ulcerations next to the PEG tube that was cauterized and injected with lidocaine. Next to that area, about 1-2 cm, there was a large deep ulcer which was actively bleeding, injected with lidocaine and cauterized. Significant amount of the stomach was grayish in color, possible ischemia, significant esophagitis. Went for angiogram with selective injection of the celiac origin, left gastric, gastroepiploic and SMA- No active GI bleed identified (12/27/15). S/P Exploratory laparotomy, MAKENZIE, gastrotomy with ligation of gastric ulcer, VAC placement (01/07/16). - Severe anemia. 8.0/24.9. - Perforated right colon sec. to colitis, s/p ex-lap, extended right hemicolectomy with primary ileocolic anastomosis, washout, open abdomen (12/18) per surgery. Path suspicious for Ischemic vs. CDifficilie. S/P Exp. lap with subtotal colectomy (12/20). - GERD, requiring daily antacids at home. PPI. - Severe sepsis with worsening leukocytosis - RUE infection/wound. Per plastics/ID - Resp. Failure. S/P Tracheostomy Per [facility]/Electrolyte abnormalities. Creat 2.38 - Chronic hepatitis C. S/P tx with Interferon/Ribavirin 6-7 years ago. reports that he was undetectable during treatment, but did not have a sustained virological response. He has never been told that he has liver cirrhosis. Liver biopsy (04/14/08)----> chronic hepatitis C with mild periportal inflammation grade 2 and mild fibrous portal expansion stage 1. He does not drink ETOH. 01/19/16- No obvious bleeding reported, hgb stable, will monitor, tolerating TF okay, PLAN: - Jevity 1.5 at 60cc/hr - Await pathology - Cont. Protonix Gtt - Avoid NG tube - May resume anticoagulation as necessary but no NSAIDs - Repeat EGD in 2 months - Supportive care - Notify GI of active bleeding. - Further recommendations to follow based on results of above Condition discussed with at bedside Con Sanchez MD Jan 20, 2016 21:31
[2016-01-21] VITALS (19 sets, daily range): BP systolic 128–148; BP diastolic 68–83; PULSE 100–130; RESP 12–21; TEMP 98.4–99.1; O2SAT 95–100
[2016-01-21] MEDS: FREE WATER G-TUBE SCH ×4 (01:40→17:58)
[2016-01-21] MEDS: HYDROmorphone HCL PF 2 MG/ML VIAL IV PUSH PRN ×4 (01:41→19:37)
[2016-01-21] MEDS: oxyCODONE HCL ORAL CONC 20 MG/ML SYRINGE PO SCH ×6 (01:41→21:55)
[2016-01-21] MEDS ORDERED: FUROSEMIDE 40 MG/4 ML VIAL IV PUSH ONE (02:00)
[2016-01-21] MEDS ORDERED: ALBUMIN HUMAN 25% 25 GM/100 ML BAGP IV ONE (02:00)
[2016-01-21] MEDS: RESP: ALBUTEROL 2.5 MG/IPRATROPIUM 0.5 MG NEB (SCH) NEB ×4 (03:44→19:38)
[2016-01-21] MEDS: CHLORHEXIDINE GLUCONATE 2 % 1 PACK (2 CLOTHS) TOP SCH (04:00)
[2016-01-21 04:34] LABS: AUTOMATED NEUTROPHIL # 14.2 TH/MM3 (1.8-7.7); BASOPHIL # 0.1 TH/MM3 (0-0.2); BASOPHIL % 0.3 % (0.0-2.0); EOSINOPHIL # 0.1 TH/MM3 (0-0.4); EOSINOPHIL % 0.6 % (0.0-4.0); HEMATOCRIT 26.9 % (39.0-51.0); LYMPHOCYTE # 1.8 TH/MM3 (1.0-4.8); MEAN CELL VOLUME 90.5 FL (80.0-100.0); MEAN CORPUSCULAR HEMOGLOBIN 29.2 PG (27.0-34.0); MEAN CORPUSCULAR HGB CONC 32.2 % (32.0-36.0); MONO % 10.6 % (0.0-8.0); NEUT % 78.5 % (16.0-70.0); PLATELET COUNT 153 TH/MM3 (150-450); RED BLOOD COUNT 2.97 MIL/MM3 (4.50-5.90); RED CELL DISTRIBUTION WIDTH 18.2 % (11.6-17.2)
[2016-01-21 04:36] LABS: HEMO FLAGS AUTO DIFF
[2016-01-21 04:39] LABS: BICARBONATE 17.9 MEQ/L (21.0-32.0); POTASSIUM 4.2 MEQ/L (3.5-5.1)
[2016-01-21] MEDS: METOPROLOL TARTRATE 25 MG TAB TUBE SCH ×3 (05:43→21:55)
[2016-01-21] MEDS: PANTOPRAZOLE SODIUM 40 MG VIAL IV PUSH SCH ×2 (05:43→17:59)
[2016-01-21 05:47] LABS: BANDS 10 % (0-6); CORRECTED NUCLEATED RBC 1 /100 WBC (0-0); EOSINOPHILS 2 % (0-4); METAMYELOCYTES 4 % (0-1); PLATELET ESTIMATE SMEAR NORMAL (NORMAL); PLATELET MORPHOLOGY NORMAL (NORMAL); POLYS (SEG NEUTROPHILS) 75 % (16-70); SCAN/DIFF FINAL DIFF MANUAL; WBC DIFF SAMPLE 100
[2016-01-21 05:51] LABS: ACANTHOCYTES OCC (NORMAL); KERATOCYTES OCC (NORMAL)
[2016-01-21 05:52] LABS: TOXIC GRANULATION 1+ (NORMAL)
[2016-01-21] MEDS: INSULIN ASPART SUPPLEMENTAL SCALE SQ SCH ×4 (06:00→17:59)
--- NOTE | 2016-01-21 06:49 | RADRPT ---
EXAM DATE/TIME: 01/21/2016 05:12 [place] COMPARISON: CHEST SINGLE AP, January 16, 2016, 3:01. INDICATIONS : Evaluate lungs after respiratory failure. MEDICAL HISTORY : None. SURGICAL HISTORY : None. ENCOUNTER: Subsequent ACUITY: 1 week PAIN SCORE: Non-responsive. LOCATION: Bilateral chest FINDINGS: A single view of the chest demonstrates cardiomegaly left retrocardiac density. Slight interstitial p rominence. Tracheostomy tube unchanged. The cardiomediastinal contours are unremarkable. Osseous st ructures are intact.CONCLUSION: 1. Cardiomegaly and left retrocardiac/basilar density. 2. Slight interstitial prominence. Wojciech Lockhart MD on January 21, 2016 at 6:47 Board Certified Radiologist. This report was verified electronically.
[2016-01-21] MEDS: MULTIVITAMINS LIQUID 5 ML UDC TUBE SCH (08:39)
[2016-01-21] MEDS: predniSONE 10 MG TAB NG SCH (08:40)
[2016-01-21] MEDS: CHLORHEXIDINE 0.12% (ORAL KIT) 15 ML CUP MT SCH ×2 (08:40→19:36)
[2016-01-21] MEDS: FERROUS SULFATE 300 MG /5ML UDC TUBE SCH ×2 (08:40→19:36)
[2016-01-21] MEDS: POVIDONE IODINE 10% OINT 30 GM TUBE TOPICAL SCH (08:41)
[2016-01-21] MEDS: NEOMYCIN/POLYMYXIN/BACITRACIN OINT 15 GM TUBE TOPICAL SCH ×2 (08:41→19:36)
--- NOTE | 2016-01-21 11:25 | HHI.GIFU ---
Subjective Remarks Resting in bed. No active bleeding. Tolerating TF. Melena in ileostomy bag. (Lisa oMnroy) Objective Vitals I&O Vital Signs Date Time Temp Pulse Resp B/P Pulse Ox O2 Delivery O2 Flow Rate FiO2 01/21/16 10:00 125 01/21/16 08:00 98.9 114 21 140/70 99 01/21/16 08:00 118 01/21/16 08:00 40 01/21/16 07:45 97 T-piece 40 01/21/16 06:00 108 01/21/16 04:30 95 40 01/21/16 04:00 99.1 110 13 148/69 99 01/21/16 04:00 110 01/21/16 04:00 40 01/21/16 02:00 100 01/21/16 01:02 100 40 01/21/16 00:00 100 01/21/16 00:00 98.8 100 17 140/74 100 01/21/16 00:00 40 01/20/16 22:00 92 01/20/16 20:00 40 01/20/16 20:00 96 01/20/16 20:00 98.4 100 20 156/78 100 01/20/16 19:00 98.5 102 21 154/84 100 01/20/16 18:33 100 40 01/20/16 18:00 101 01/20/16 18:00 99.0 101 19 146/73 100 01/20/16 17:45 99.2 105 24 139/72 100 01/20/16 16:45 100 T-piece 6.00 50 01/20/16 16:00 94 01/20/16 16:00 40 01/20/16 16:00 98.8 101 26 139/72 100 01/20/16 15:45 20 01/20/16 15:24 100 40 01/20/16 14:00 100 40 01/20/16 14:00 120 01/20/16 12:00 122 01/20/16 12:00 40 01/20/16 12:00 98.4 122 20 131/67 98 01/20/16 11:52 99 T-piece 7.00 40 I/O 01/20/16 01/20/16 01/20/16 01/21/16 01/21/16 01/21/16 07:00 15:00 23:00 07:00 15:00 23:00 Intake Total 532 ml 742 ml 480 ml 474 ml Output Total 545 ml 750 ml 1520 ml 965 ml Balance -13 ml -8 ml -1040 ml -491 ml Intake Oral 0 ml IV Total 126 ml 352 ml 82 ml 77 ml Tube Feeding 286 ml 370 ml 338 ml 397 ml Tube Irrigant 20 ml Other 120 ml 60 ml Output Urine Total 300 ml 550 ml 1350 ml 850 ml Stool Total 150 ml 50 ml 100 ml 50 ml Drainage Total 95 ml 150 ml 70 ml 65 ml Laboratory Laboratory Tests Test 01/20/16 01/20/16 01/21/16 15:37 18:50 03:30 Blood Type B POSITIVE Antibody Screen NEGATIVE Crossmatch Leukocyte-Reduced Red Blood Cells Blood Bank Comment Urine Random Creatinine LESS THAN 13.0 Urine Random Sodium 101 White Blood Count 18.0 Red Blood Count 2.97 Hemoglobin 8.7 Hematocrit 26.9 Mean Corpuscular Volume 90.5 Mean Corpuscular Hemoglobin 29.2 Mean Corpuscular Hemoglobin 32.2 Concent Red Cell Distribution Width 18.2 Platelet Count 153 Mean Platelet Volume 10.3 Neutrophils (%) (Auto) 78.5 Lymphocytes (%) (Auto) 10.0 Monocytes (%) (Auto) 10.6 Eosinophils (%) (Auto) 0.6 Basophils (%) (Auto) 0.3 Neutrophils # (Auto) 14.2 Lymphocytes # (Auto) 1.8 Monocytes # (Auto) 1.9 Eosinophils # (Auto) 0.1 Basophils # (Auto) 0.1 CBC Comment AUTO DIFF Differential Total Cells 100 Counted Neutrophils % (Manual) 75 Band Neutrophils % 10 Lymphocytes % 2 Monocytes % 7 Eosinophils % 2 Neutrophils # (Manual) 16.0 Metamyelocytes 4 Nucleated Red Blood Cells 1 Differential Comment FINAL DIFF MANUAL Toxic Granulation 1+ Platelet Estimate NORMAL Platelet Morphology Comment NORMAL Acanthocytes OCC Keratocytes OCC Sodium Level 144 Potassium Level 4.2 Chloride Level 112 Carbon Dioxide Level 17.9 Anion Gap 14 Blood Urea Nitrogen 84 Creatinine 1.98 Estimat Glomerular Filtration 36 Rate Random Glucose 104 Calcium Level 7.8 Date/Time Procedure Status Source Growth 01/20/16 15:37 Aerobic Blood Culture - Preliminary Resulted Blood Peripheral NO GROWTH IN 1 DAY 01/20/16 15:37 Anaerobic Blood Culture - Preliminary Resulted Blood Peripheral NO GROWTH IN 1 DAY Imaging Last Impressions Chest X-Ray 01/21/16 0600 Signed Impressions: Service Date/Time: Thursday, January 21, 2016 05:12 - CONCLUSION: 1. Cardiomegaly and left retrocardiac/basilar density. 2. Slight interstitial prominence. Wojciech Lockhart MD Abdomen/Pelvis CT 01/06/16 0000 Signed Impressions: Service Date/Time: Wednesday, January 06, 2016 22:07 - CONCLUSION: 1. Over the last day there is development of a large mass in the left upper quadrant measuring up to 18 x 13 cm which appears to be associated with the stomach. The mass is characterized by somewhat concentric areas of decreased and increased attenuation with multiple locules of air. Primary differential diagnosis is hemorrhage into the gastric wall with gastric pneumatosis and possibly gastric ischemia. Gastrostomy is again noted anteriorly. 2. Remainder the exam is relatively stable with drainage tube left upper quadrant, splenectomy, bilateral effusions, feeding jejunostomy and drain within the pelvis. There is also diffuse anasarca and nonobstructing renal calculi. Nomi Falcon MD Chest CT 01/05/16 0000 Signed Impressions: Service Date/Time: Tuesday, January 05, 2016 23:15 - CONCLUSION: 1. Persistent left lower lobar consolidation. Improved consolidative infiltrates in the right lower lung. 2. Interval increase size bilateral pleural effusions , left greater than right. Osmar Alegria MD Celiac/Hepatic Arteriogram 12/27/15 0000 Signed Impressions: Service Date/Time: December 13:41 - CONCLUSION: 1. No active GI bleed identified. Robert Mckinney MD Abdomen X-Ray 12/18/15 0000 Signed Impressions: Service Date/Time: Friday, December 18, 2015 16:05 - CONCLUSION: Feeding tube tip is at the gastric antrum. Arnaldo Elias MD Head CT 12/02/15 1013 Signed Impressions: Service Date/Time: Wednesday, December 02, 2015 11:00 - CONCLUSION: 1. No intracranial abnormality is seen. 2. Air-fluid level in the right maxillary sinus. Arnaldo Reyes MD Physical Exam HEENT: Normocephalic; atraumatic; no jaundice. CHEST: Resp. shallow, diminished. Tracheostomy, course breath sounds- T Bar CARDIAC: ST ABDOMEN: Soft, nondistended. J tube . Midline drsg d/i, BEV drain x 2RLQ ileostomy with dark brownish green, ? melena stool EXTREMITIES: Generalized edema. 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 Reconsulted for significant drop in Hgb. S/P EGD (01/17/16)---- > Gastric ulcers,gastritis, thickened gastric fold. Pathology pending. Protonix with BID dosing. HH Stable .. - Upper GI bleed/Gastric Ulcers. S/P EGD (12/27/15)-----> Large clots filling the stomach. There was active bleeding from small ulcerations next to the PEG tube that was cauterized and injected with lidocaine. Next to that area, about 1-2 cm, there was a large deep ulcer which was actively bleeding, injected with lidocaine and cauterized. Significant amount of the stomach was grayish in color, possible ischemia, significant esophagitis. Went for angiogram with selective injection of the celiac origin, left gastric, gastroepiploic and SMA- No active GI bleed identified (12/27/15). S/P Exploratory laparotomy, MAKENZIE, gastrotomy with ligation of gastric ulcer, VAC placement (01/07/16). Rpt. EGD (01/17/16)----> Gastric ulcers,gastritis, thickened gastric fold. Pathology pending. - Severe anemia. .9 - Perforated right colon sec. to colitis, s/p ex-lap, extended right hemicolectomy with primary ileocolic anastomosis, washout, open abdomen (12/18) per surgery. Path suspicious for Ischemic vs. CDifficilie. S/P Exp. lap with subtotal colectomy (12/20). - GERD, requiring daily antacids at home. PPI. - Severe sepsis with worsening leukocytosis - RUE infection/wound. Per plastics/ID - Resp. Failure. S/P Tracheostomy Per [facility]/Electrolyte abnormalities. Creat 1.98 - Chronic hepatitis C. S/P tx with Interferon/Ribavirin 6-7 years ago. reports that he was undetectable during treatment, but did not have a sustained virological response. He has never been told that he has liver cirrhosis. Liver biopsy (04/14/08)----> chronic hepatitis C with mild periportal inflammation grade 2 and mild fibrous portal expansion stage 1. He does not drink ETOH. PLAN: - Jevity 1.5 at 60cc/hr - Await pathology - Cont. Protonix with BID dosing - Avoid NG tube - May resume anticoagulation as necessary but no NSAIDs - Repeat EGD in 2 months - Supportive care - Notify GI of active bleeding. - Further recommendations to follow based on results of above - Pt seen and examined by Dr. Sanders and myself and this note is written on his behalf (Lisa Monroy) Physician Comments Seen and examined with Ms. Eliana RUIZ [facility] with melena in illeostomy bag. Discussed with Dr. Poole, CT scan ordered. monitor H/H (Olayinka Sanders MD) Lisa Monroy Jan 21, 2016 11:25 Olayinka Sanders MD Jan 21, 2016 14:59
[2016-01-21] MEDS: FLUCONAZOLE 400 MG PREMIX BAG 200 ML IV SCH (12:01)
[2016-01-21] MEDS: fentaNYL 75 MCG/HR PATCH TD SCH (12:02)
[2016-01-21] MEDS: REMOVE OLD PATCH TD SCH (12:02)
--- NOTE | 2016-01-21 12:50 | HHI.CCPN ---
Subjective Remarks/Hospital Course 55-year-old male brought by EMS with altered mental status. He has been confused for 2 days but this morning has been the worst. He has history of chronic opiate medications including methadone and morphine that he takes for pain management and hence they gave him Narcan IV which brought the GCS up to 13. The blood glucose was 74. He has open wounds from his right upper and bilateral lower extremities. He has history of hepatitis C. Last week he was pealing and eating shrimps. Bedside blood sugar was 76 in the ER. He was tachycardic in 1 teens and was intubated in the ED for airway protection. Admitted to ICU with sepsis due to Staph Aureus hand infection and E. Coli bacteriemia. 12/05 Patient remains sedated with Fentanyl and intubated. On Levophed 3 mics, Vasopressin 0.03 mics and Bicarb drip. T:99.8 TF placed on hold OGT to LIWS last night - gastric drainage 525ml overnight. 12/06 Patient is sedated with Fentanyl and intubated, On Levophed 3 mics, off vasopressin. Gastric output 400ml in 24 hrs. KUB abdomen yesterday mildly distended colon otherwise non specific KUB. 12/07 Patient is off sedation remains intubated tolerated CPAP for most day yesterday. Afebrile. on no drips, tolerating tube feeds. 12/08 Patient went to OR yesterday for debridement and irrigation of right forearm and wound VAC placement. Given 2U PRBC and 2u PLT yesterday and currently receiving 1of 2 u additional PRBC. Hgb 7.7, PLT 43 this morning. Patient also started on pressors now on Levophed 10 mics. Vasopressin 0.04 mics. On no sedation. 12/09 Patient remains intubated off pressors, Afebrile. Tolerating tube feeds. Afebrile. 12/10 Patient is sedated with Fentanyl and intubated. Awake and follows commands off sedation. Afebrile. 12/11 Patient had ?SVT overnight given Lopressor 2.5mg IV x1, Remains intubated and sedated with Fentanyl. Afebrile. Tolerating TF. 12/12 Patient spoked fever last night with T: 101.5, sedated with Fentanyl and intubated. 12/13 Patient had an episode of desaturation overnight required increase FIO2/ PEE now on ACV with RR 14, TV 550, PEEP: 12, FIO2 60% with sats 100% CT chest performed overnight showed b/l consolidation and small pleural effusion. Had T: 100.0 last night. 12/14 Tolerating PS 15/CPAP 10 FiO2 40% with rSBI 38, weaning. . Awake and alert , following commands. Hypotensive overnight and levophed restarted up to 12 mcg/ min. Nurse has been weaning throughout the day. Suspected adrenal insufficiency as he was on prednisone as outpatient for gout and has not been on stress dose steroids. Given decadron. 12/15 Transfused 1 unit PRBC for Hgb 7.0 yesterday, 1 unit PRBC for Hgb 6.6 today and now Hgb 8.3. Does not clinically have e/o active GI bleeding and wound vac output nonbloody. Stool 1500 output, C diff negative. No abdominal pain. Remains Awake and alert, remained on CPAP 10/5 last night and is now tolerating CPAP 5/5. 12/16: Extubated yesterday tolerating well. Breathing comfortably. Able to follow commands. UO 1.8 L in 24 hours. Na slightly increased to 153. 12/17: Significantly worse this AM. WBC up to 28 from 16. Hgb 5.2 from 7.9. tachycardic. pale this AM. states he feels tired. Continues on BiPAP. Plan for debridement of his arms today. LIJ CVL does not have any signs of overt infection. 12/18: Blood cell count continues to rise today to 30 from 28. Required 1 unit of blood for hemoglobin of 6.6 which improved to 7.7 this morning. However, patient remains tachycardic in the 120s and significantly pale. CT abdomen and pelvis ordered and pending. Tachypneic with respiratory rate in the 30s. Only small amount of dark tarry stool yesterday with approximately 300 cc of stool output. C. difficile toxin negative 3. After discussion with infectious disease, restart vancomycin, cefepime, Flagyl, micafungin. Horn cultures are pending. Per discussion with GI, will not scope as endoscopy is high risk given his tenuous respiratory status this point. Slightly worse hypernatremia as well as worsening acute kidney injury this morning. 12/19: POD 1 s/p ex-lap, washout for perforated ascending colon with extended right hemicolectomy, primary ileocolic anastamosis, open abdomen, septic shock, acute hypoxic and hypercarbic respiratory failure. Significantly critically ill overnight: required 6L ivf resuscitation, 1 unit prbc, norepinephrine, vasopressin, stress dose hydrocortisone. This morning, remains on high-dose vasopressors. still has large volume ivf requirement. Significant SIRS response. Vent requirements increasing with all this volume resuscitation, PEEP up to 10. He remains critically ill, and although I do believe we have surgical source control, I anticipate he will continue to clinically decline before he starts to make improvements. 12/20: Off pressors. follows commands on sedation holiday. +11L over last 3 days during acute illness, +22L since admission. We are going to have to get some of this volume back before we are able to close him given his severe anasarca. 12/21: Taken back to the OR yesterday afternoon for washout and completion colectomy. Postoperatively was significantly under resuscitated as well as had ongoing active oozing. Patient was coagulopathy. The patient was in distributive and hemorrhagic shock. The patient was given multiple units of blood products overnight. Patient was thrombocytopenic, hypofibrinogenemic, coagulopathic. Given significant volume of blood product resuscitation: 24h blood products: 13 prbc 8 ffp 2 plt 1 10-pack cryo This morning continues to have significant amount of bright red output out of his BEV and wound VAC, approximately 500 cc an hour out of his wound VAC, and approximately 75 an mils every 10 minutes out of a BEV. I discussed with surgery and we will correct his coagulopathy and plan to go back to the OR for exploration early this afternoon. 12/22: Clinically starting to improve hemodynamically. off vasopressors. Net+ 26L. CVP rising to 14. UOP adequate. Hgb 7 this AM. 12/23 Seen postop. Hypertensive, BP improved with additional pain medicine. Remains net positive but urine output excellent 3L in 24 hours. Remains on Lasix gtt. went to OR today status post wound VAC change and partial closure 12/24: Fascia was closed yesterday. Wound Vac in place. Remains sedated. -2L negative balance, but with increasing BUN/creat. Discontinue Bumex infusion, start scheduled Bumex 2 mg IV every 12 with IV albumin. 12/25: Overnight became hypotensive requiring Levophed to be restarted. Hemoglobin dropped to 4.1. Noted to have bloody drainage from G-tube and dorsal ileostomy with black stool output 12/26: s/p EGD yesterday-2 gastric ulcers bleeding, stomach a significant part had decreased discoloration indicating probable ischemia. s/p epi injection and cauterization. Continues to have coffee ground G tube output, black tarry Ileostomy output. Hemoglobin down to 6.4 getting 2 units of PRBC. GI recent recommending intervention radiology consult. 12/27: For trach today. Meds ordered. Hgb decline consistent with recent transfusions and senescent cells. 12/28: Trach clean, dry. Start SBTs. Check prealbumin. Continue TPN. 12/29: Looks in direction of voice. I have not seen more purposeful reactions. Line > 12 days old, replace today. Prealbumin 20 - good response to TPN. 12/30: Remains vented, encephalopathic, puss like drainage from left hand, WBC increased 01/01: no significant changes. continues to remain critically ill with minimal improvements over the last week. abdomen closed. still total body volume overloaded. 01/02: more awake today than yesterday. continues to be critically ill with minimal improvements overall. need to look towards placement. -900 yesterday. 01/03: up in chair yesterday. tolerated short run of SBT 15/5/40%. net euvolemic. wbc downtrending. 01/04: wbc slightly uptrended 33 from 30, more acidotic on BMP (14 from 20). Also spiking fevers to 102.3 despite tylenol. continues on broad spectrum abx. yesterday's cxr had what may be a new LLL infiltrate. today, though, he is following commands and more awake and alert. 01/05: LLL pna clinically and based on bronch. CT c/a/p done last night without any significant intra-abdominal change. small left pleural effusion which appears simple in nature, and LLL consolidation. ID broadened abx. today , wbc downtrending. culture data pending. Hgb 7 this AM. 01/06: Underwent exploratory laparotomy last night with findings of bleeding gastric ulcer which was oversewn by Dr. Verdin abdomen left open with wound VAC in place. Received 3 units PRBCs overnight. Remains on Wesley-Synephrine drip this morning for hypotension. Remains sedated, on mechanical ventilation. 01/07: Remains sedated, on mechanical ventilation. For abdominal incision site closure today. Significant positive fluid balance over the last 2 days. Off pressors currently. Lasix to mobilize fluid. 01/08: Remains sedated, on mechanical ventilation via tracheostomy. Underwent abdominal incision site closure this morning. Remains off pressors. Anasarca noted. Blood cultures from 01/04 growing Nava parapsilosis. 01/09: Drowsy/sedated, arousable, on mechanical ventilation via tracheostomy. TPN started yesterday. To be started on J-tube feeds per discussion with surgery 01/10: Sedated, arousable, on mechanical ventilation via tracheostomy. Remains on TPN. J-tube feeds being started today. 01/11: Was on T piece yesterday and rested on C Pap overnight. On TPN. Advanced J-tube feeds to 20 cc an hour today. Attempt T piece as tolerated. 01/12: Awake, tracks with his eyes. On C Pap overnight. Tolerated T piece during daytime yesterday. 01/13: Awake and alert. Was on T piece all day yesterday and was placed back on C Pap at 1:45 AM this morning. Does not appear to be in any acute distress. Tolerating J-tube feeds at 20 cc per hour. 01/14: Drowsy, easily arousable. Was on T piece all day yesterday and rested on C Pap at night. Tolerating J-tube feeds at 40 cc an hour with goal of 60 cc per hour. On TPN which will be discontinued after current bag. BEV drain with cloudy drainage. 01/15 Was placed back on ACV yesterday around 9 am due to tachypnea and remained on ACV overnight. Now on CPAP 11/20 and tolerating. BEV in lower abdomen had purulent output yesterday but RN states looks better today. Tolerating tube feeds, stool in ostomy. Off TPN. Removing CVL. 01/16 Hgb 6.6 on CBC this morning, lab draw, repeat pending. Tachycardia persists but otherwise no hemodynamic change. The NGT output yesterday was bilious, today brown/slight coffee grounds but mostly clear. No blood from BEV' s.Has been tolerating jejunal tube feeds, placed on hold for now. Has been tolerating CPAP 10/5 with RSBI 10s. GI/General surgery updated. 01/17 Hemoglobin 8.0. EGD performed yesterday showing gastric ulcers with no active bleeding. Abdominal wound dressing change today. Plan to begin trickle feeds today per general surgery. 01/18 Hgb 7.3. Tolerating trickle feeds that were resumed per general surgery.Tolerated Tpiece 2 hours yesterday. On CPAP 8/5 overnight. Now on Tpiece about 1 hour and doing well. Will continue intermittent Tpiece trials throughout the day with rest on CPAP in between. Watching off abx; cefepime discontinued 01/16. Remains on fluconazole for candidemia. Subjective: 01/19 Trach developed cuff leak overnight. I exchanged Trach at bedside this morning. Tolerated Tpiece 2 hours, now resting on CPAP 8/5. Doing 2 piece trials up to 2 hours as tolerated tid and then plan to start extending duration of Tpiece trials from there. Tolerating tube feeds. 01/20 Tmax 99.2. Continued Protonix twice a day, noted melena continues in ostomy bag. Patient's T piece trials extended to 4 hours today, maximum toleration. Repeat blood cultures 01/19 still pending, WBC count still elevated. Wound care to be consulted for clarification of all specific dressing changes noted new reddened skin breakdown area on sacrum ,and eschar noted several areas left upper extremity all skin margins of wound noted erythematous. coffee brewer Mattie Yost in attendance of dressing change CHALO, noted no change in left upper extremity appearance in the last 30 days per her assessment.Requested Plastic Surgery reassess CHALO and wound care protocol.Patient continues to tolerate tube feeds no residual noted. Objective Vital Signs Date Time Temp Pulse Resp B/P Pulse Ox O2 Delivery O2 Flow Rate FiO2 01/21/16 10:00 125 01/21/16 08:00 98.9 21 140/70 99 01/21/16 08:00 40 01/21/16 07:45 T-piece 01/20/16 16:45 6.00 Intake and Output 01/20/16 01/20/16 01/21/16 08:00 16:00 00:00 Intake Total 532 ml 742 ml 480 ml Output Total 545 ml 750 ml 1520 ml Balance -13 ml -8 ml -1040 ml Result Diagram: 01/21/16 0330 01/21/16 0330 Imaging Last 48 hours Impressions Chest X-Ray 01/07/16 0000 Signed Impressions: Service Date/Time: Thursday, January 07, 2016 04:23 - CONCLUSION: Worsening consolidation or atelectasis at the left mid and lower lung. Some degree of left effusion may also be contributing to this. Arnaldo Reyes MD Chest X-Ray 01/06/16 0000 Signed Impressions: Service Date/Time: Wednesday, January 06, 2016 19:46 - CONCLUSION: 1. Basilar airspace disease improved from January 04. Tracheostomy and right central line in satisfactory position. Nomi Falcon MD Abdomen/Pelvis CT 01/06/16 0000 Signed Impressions: Service Date/Time: Wednesday, January 06, 2016 22:07 - CONCLUSION: 1. Over the last day there is development of a large mass in the left upper quadrant measuring up to 18 x 13 cm which appears to be associated with the stomach. The mass is characterized by somewhat concentric areas of decreased and increased attenuation with multiple locules of air. Primary differential diagnosis is hemorrhage into the gastric wall with gastric pneumatosis and possibly gastric ischemia. Gastrostomy is again noted anteriorly. 2. Remainder the exam is relatively stable with drainage tube left upper quadrant, splenectomy, bilateral effusions, feeding jejunostomy and drain within the pelvis. There is also diffuse anasarca and nonobstructing renal calculi. Nomi Falcon MD Last Impressions Chest X-Ray 12/17/15 0600 Signed Impressions: Service Date/Time: Thursday, December 17, 2015 03:25 - CONCLUSION: Persistent left lower lobe consolidation. Osmar Alegria MD Chest CT 12/14/15 0000 Signed Impressions: Service Date/Time: Monday, December 14, 2015 06:12 - CONCLUSION: 1. Cardiomegaly with bilateral consolidation, likely CHF. Pneumonia cannot be excluded. 2. Small right pleural effusion. Wojciech Lockhart MD Abdomen X-Ray 12/06/15 0000 Signed Impressions: Service Date/Time: November 09:53 - CONCLUSION: Nonspecific KUB. Air is seen within a mildly distended colon but contrast is clearly seen in the rectum. Arnaldo Reyes MD Abdomen/Pelvis CT 12/04/15 0000 Signed Impressions: Service Date/Time: Friday, December 04, 2015 16:24 - CONCLUSION: 1. Mildly distended small bowel in the mid and lower abdomen. Contrast is clearly seen extending into the distal small bowel and ascending colon so a complete obstruction is not seen. A transition point is not seen. This pattern likely represents an ileus versus a partial obstruction. 2. Multiple nonobstructing renal stones. 3. Abnormal appearance of the spleen which appears to represent a splenule. It could be correlated if the patient has had either primary splenic removal or splenic injury and this is what is either left of the spleen or a developing splenule. This is likely of no significance. 4. Mild ascites. 5. Increased density within the gallbladder representing either tumefactive sludge or noncalcified stones. 6. Mild bilateral pleural effusions with prominent areas of lower lobe atelectasis or consolidation at the bases bilaterally. 7. Subacute to chronic bilateral rib fractures and multiple compression fractures in the lower thoracic and lumbar spine as described above. The patient does have a prior CT examination from 08/26/2014. All the compression deformities described above are new when compared to that scan. Arnaldo Reyes MD Head CT 12/02/15 1013 Signed Impressions: Service Date/Time: Wednesday, December 02, 2015 11:00 - CONCLUSION: 1. No intracranial abnormality is seen. 2. Air-fluid level in the right maxillary sinus. Arnaldo Reyes MD Objective Remarks Jevity 1.5 @ 10 mL per hour GENERAL: Middle-aged chronically critically ill-appearing male, lying in bed, on Tpiece via trach. HEENT: NCAT. mucous membranes moist. NECK: trach in place. obese neck. difficult to assess JVD. RESPIRATORY: On tpiece, . Breath sounds present bilaterally, scattered rhonchi , diminished bibasilar, no wheezing . CARDIOVASCULAR: regular, tachycardic ~110-121. Sinus tach on monitor. No murmurs rubs or gallops. GASTROINTESTINAL: J tube in place with tube feeds running . Gauze dressings in place inferior aspect of midline incision. L side BEV drain in mid lower abdomen with with cloudy drainage. BEV mid lower abdomen with serous drainage. Ostomy with soft melena. Hypoactive bowel sounds. MUSCULOSKELETAL: Generalized anasarca, doughy pitting edema 2+ bilateral feet. Multiple open wounds in the lower extremity, without exudate (observed on 01/15 , today have been wrapped in gauze) RUE - with wound vac in place over right arm with mostly serous, very slightly sanginous output. L upper extremity dressing in place; L forearm. NEURO: Awake, opens eyes spontaneously, makes eye contact and smiles. Moves bilateral feet to command. 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 - Liquid tylenol 650mg per tube q6h discontinued 01/15 - Dilaudid 2mg iv q4h prn for breakthrough pain. - oxycodone 20mg per tube q4h scheduled. Respiratory Acute respiratory failure-extubated 12/16/15, reintubated for surgery 12/18 Acute hypoxic and hypercarbic respiratory failure Acute healthcare associated pneumonia- resolved NIGEL on home CPAP - Perc Tracheostomy 12/27 (Dr. Miller). Trach exchanged 8.0 shiley with cuff on 01/19. - Vent bundle. Head of bed at 30 degrees. Duoneb q6h and prn. - Tpiece trials up to 2 hours tid tolerated yesterday, plan to extend duration of Tpiece trials to 4 hours on 4 hrs TID. --CXR 01/15 - L pleural effusion. Bedside u/s shows small/moderate pleural effusion but will hold off on bedside thoracentesis at this time -. Continue fluid mobilization with lasix. I/O (-1539 cc) CV Hemorrhagic shock- resolved Septic Shock- resolved Volume overload - Maintain MAP > 65 mmHg. - Cortisol level 14 on 12/14 - Stopped stress dose hydrocortisone on 01/12 and started prednisone 10 mg daily 01/13. If hemodynamics changing or if returns to OR would need stress dose hydrocortisone again. - Echo 12/07 EF 65-70%, grade I diastolic dysfunction - Metoprolol 12.5 per tube q8 hours. FENRenal: DEIRDRE Hypernatremia (resolved) Hypophosphatemia Anasarca, third spacing. Severe hypoalbuminemia - Hypernatremia improved Following D5 @ 50 milliliters per hour, now off. Free water flush 100 q6 - Today will give Lasix 40 mg IV following 1 unit PRBC and give additional Lasix 40 mg IV at 0200 accompanied by albumin 25 gram. - Feurea never resulted, will check FEna before lasix. -Creatinine remains ~2.2. Urine eos negative. Off vancomycin. Avoid nephrotoxins. Phos is elevated following aggressive replacement. Will monitor. -Multivitamin q/day GI Acute GIB, hemorrhagic shock (resolved, now with recurrent anemia but not shock) Perforated right colon with colitis s/p ex-lap, extended right hemicolectomy with primary ileocolic anastamosis, washout, open abdomen (12/18) s/p Ex lap 01/05 for bleeding gastric ulcer Acute protein calorie malnutrition- severe Chronic hepatitis C s/p interferon/ribavirin years ago. Liver biopsy 04/14/08 Melena - EGD 12/26/15 showed 2 large gastric ulcers with active bleeding status post epinephrine infusion and cauterization - OR on 12/24 with Removal of VAC, washout, pancreatic drain and pelvic drain placement, gastrostomy, feeding jejunostomy and closure of abdomen with application of VAC device in the subcutaneous tissue. -to OR 01/05 with GI bleeding and hemorrhagic shock. Had bleeding gastric ulcer and pneumatosis of stomach. Underwent gastrotomy with ligation of gastric ulcer , lysis of adhesions, wound VAC placement -01/16 Endoscopy showed - ulcers at antrum and cardia without stigmata of bleeding and no exposed vessel. Granulation tissue at suture line without bleeding. Small ulceration there also without bleeding. Duodenum normal. At low risk for UGI bleeding per GI, okay for anticoagulation from their point of view. Avoid NSAIDS/ASA. NGT removed 01/16, to remain out per GI; Dr. Sanchez. Repeat EGD in 2 months ( Mar)per GI recs. -Prior TPN stopped 01/01. Again on TPN 01/08-01/14. -Continue Protonix 40 g IV q12h -Continue Jevity 1.5 goal rate at 60 mL per hour per nutrition/ GI recommendations. Heme: Acute Anemia secondary to acute blood loss Thrombocytopenia Hypofibrinogenemia secondary to consumption and acute blood loss Coagulopathy secondary to consumption and acute blood loss --monitor CBC --Hep PLT ab negative on 12/03 - Ferrous Sulfate 300mg bid - transfused 3 units PRBCs 01/05- -Hgb of 6.6 on 01/16 was a lab error. The hemoglobin was 8.2 on recheck without any transfusion provided. -Hgb continues trickle down. Will transfuse 1 unit PRBC today in view of Hgb 7.1 and tachycardia increased to 120s (baseline is 104-110) ID Severe sepsis Necrotizing Fascitis - MSSA on wound culture 12/07. Ecoli bacteremia 12/01 MSSA bacteremia 12/05. Cleared on f/u blood culture 12/07, 12/12. Candidemia (blood culture 01/04 with Nava parapsilosis) Sepsis of Intra-abdominal origin. C. difficile toxic megacolon (based on pathology C diff vs ischemia, C diff test negative) --Debridement 12/01 p.m at bedside by Dr Pedro and Dr. Hartmann --R hand, forearm and olecranon bursa I and D and Wound vac 12/07 Dr Chavez. -- ABX per ID: Now on Fluconazole alone 01/09 #11 Previously: cefepime 12/17-01/16,flagyl IV 12/17-01/16 , Vancomycin 01/04-01/16 ( trough 20 on 01/15). Micafungin stopped per ID 01/08. Amphotericin B started by ID on 01/08 and stopped 01/09. Nava parapsilosis in blood culture from 01/04 most likely from an intra- abdominal source(central line was changed on 01/04). Last set of blood cultures have been negative. BEV drain with cloudy drainage 01/14, now clear serous. General surgery aware and following. Noted WBC 18 from 19, if continues uptrend or if evidence of recurrent sepsis off abx, will discuss repeat CT abd/pelvis with surgery. Seen by Dr. Wu 01/13 and no evidence of endogenous fungal endophthalmitis ID following, Dr. Becerra Wound care following for leg wounds. -Plastic Surgery requested for reassessment of LUE and skin care protocol for left arm --12/17 blood cultures: NGTD 12/17 central line culture: NGTD 12/17 urine cultures: NGTD 12/17 sputum cultures: NGTD C. difficile toxin 12/17: Negative (3rd negative toxin screen) -01/04 Blood culture with nava parapsilosis 01/04: horn culture, bronch with BAL, 01/04: CT chest/abd/pelvis without contrast: LLL consolidation, otherwise unchanged. 01/04: clinically LLL VAP. 01/08 Blood cultures: no growth 01/09 blood culture peripheral - NGTD 01/12 sputum cutlure - neg 01/12 - urine culture NGTD. Endocrine: Hyperglycemia of Critical Illness Diabetes - off Insulin drip - Levemir BID on hold. - On low-dose insulin sliding scale with bedside glucose every 6 hours, not requiring coverage. Glucose at 104 - Prednisone 10mg po daily since 01/13. Previously was on prednisone as an outpatient. Has been on hydrocortisone intermittently when he has gone to the OR or decompensated. Prophylaxis: GI Prophylaxis: -- Protonix IV BID DVT Prophylaxis: - SCDs Subcutaneous heparin on hold since 01/05. Remained on hold due to concern for bleeding. Patient has melena (which may be old) and ongoing anemia so will continue to hold for now. ACCESS: --PIV. Patient needs PICC for ongoing meds/labs. Discussed with ID, will place if followup blood cultures negative from 01/19, awaiting results. Right IJ TLC 01/04-01/15 #12. PT/OT. OOB. Discussed with [employer] at bedside. This patient remains critically ill with one or more organ systems which are or may become a threat to life. I have spent in excess of 33 minutes discontinuously in the care and management of this patient. This time is exclusive of procedures, and includes, but is not limited to, evaluation of the patient, review of the medical record, discussions with family, consultants, nursing staff, or respiratory therapy, and documentation in the medical record. Physician Fe Poole Problem Qualifiers (1) Respiratory failure: Qualified Code: J96.00 - Acute respiratory failure, unspecified whether with hypoxia or hypercapnia (2) Altered mental status: Qualified Code: R41.0 - Delirium (3) Sepsis: Qualified Code: A41.9 - Sepsis, due to unspecified organism Fe Poole MD Jan 21, 2016 12:49
--- NOTE | 2016-01-21 15:13 | HHI.PR ---
Subjective Subjective Notes Awake Follows commands In good spirits Objective Vitals/I&O Vital Signs Date Time Temp Pulse Resp B/P Pulse Ox O2 Delivery O2 Flow Rate FiO2 01/21/16 12:15 99 40 01/21/16 12:00 130 01/21/16 08:00 98.9 21 140/70 01/21/16 07:45 T-piece 01/20/16 16:45 6.00 Labs Laboratory Tests Test 01/20/16 01/20/16 01/21/16 15:37 18:50 03:30 Blood Type B POSITIVE Antibody Screen NEGATIVE Crossmatch Leukocyte-Reduced Red Blood Cells Blood Bank Comment Urine Random Creatinine LESS THAN 13.0 Urine Random Sodium 101 White Blood Count 18.0 Red Blood Count 2.97 Hemoglobin 8.7 Hematocrit 26.9 Mean Corpuscular Volume 90.5 Mean Corpuscular Hemoglobin 29.2 Mean Corpuscular Hemoglobin 32.2 Concent Red Cell Distribution Width 18.2 Platelet Count 153 Mean Platelet Volume 10.3 Neutrophils (%) (Auto) 78.5 Lymphocytes (%) (Auto) 10.0 Monocytes (%) (Auto) 10.6 Eosinophils (%) (Auto) 0.6 Basophils (%) (Auto) 0.3 Neutrophils # (Auto) 14.2 Lymphocytes # (Auto) 1.8 Monocytes # (Auto) 1.9 Eosinophils # (Auto) 0.1 Basophils # (Auto) 0.1 CBC Comment AUTO DIFF Differential Total Cells 100 Counted Neutrophils % (Manual) 75 Band Neutrophils % 10 Lymphocytes % 2 Monocytes % 7 Eosinophils % 2 Neutrophils # (Manual) 16.0 Metamyelocytes 4 Nucleated Red Blood Cells 1 Differential Comment FINAL DIFF MANUAL Toxic Granulation 1+ Platelet Estimate NORMAL Platelet Morphology Comment NORMAL Acanthocytes OCC Keratocytes OCC Sodium Level 144 Potassium Level 4.2 Chloride Level 112 Carbon Dioxide Level 17.9 Anion Gap 14 Blood Urea Nitrogen 84 Creatinine 1.98 Estimat Glomerular Filtration 36 Rate Random Glucose 104 Calcium Level 7.8 Date/Time Procedure Status Source Growth 01/20/16 15:37 Aerobic Blood Culture - Preliminary Resulted Blood Peripheral NO GROWTH IN 1 DAY 01/20/16 15:37 Anaerobic Blood Culture - Preliminary Resulted Blood Peripheral NO GROWTH IN 1 DAY Radiology Last Impressions Chest X-Ray 12/28/15 0000 Signed Impressions: Service Date/Time: Monday, December 28, 2015 14:23 - CONCLUSION: Large left pleural effusion and left lung base consolidation. Freddy Connor MD Abdomen/Pelvis CT 12/19/15 0000 Signed Impressions: Service Date/Time: Saturday, December 19, 2015 10:57 - CONCLUSION: 1. Adjacent volume pneumoperitoneum is observed consistent with perforation of a hollow viscus. This is presumably colonic in origin due to the diffuse inflammatory process involving the colon. I do not clearly identify the source of the pneumoperitoneum however. There is mild dilatation of the small bowel likely an ileus in nature. A significant volume of ascitic fluid is noted. 2. Bibasilar atelectasis and bilateral pleural effusions. 3. Small pericardial effusion. 4. Small bilateral nonobstructing renal calculi. 5. I spoke with Dr. Sanchez concerning the findings. Osmar Chavez Jr., MD Abdomen X-Ray 12/18/15 0000 Signed Impressions: Service Date/Time: Friday, December 18, 2015 16:05 - CONCLUSION: Feeding tube tip is at the gastric antrum. Arnaldo Elias MD Chest CT 12/14/15 0000 Signed Impressions: Service Date/Time: Monday, December 14, 2015 06:12 - CONCLUSION: 1. Cardiomegaly with bilateral consolidation, likely CHF. Pneumonia cannot be excluded. 2. Small right pleural effusion. Wojciech Lockhart MD Head CT 12/02/15 1013 Signed Impressions: Service Date/Time: Wednesday, December 02, 2015 11:00 - CONCLUSION: 1. No intracranial abnormality is seen. 2. Air-fluid level in the right maxillary sinus. Arnaldo Reyes MD Cardiovascular: Regular Lungs: Clear Abdomen: Other (see below ), Post-op tenderness Extremities: Other (gen edema ) Narrative Exam RIGHT arm with wound vac on Abd: Midline incision--- packing removed and replaced to superior and inferior portion of incision; RIGHT BEV with serous drainage; LEFT with darker sedimentary drainage; ileostomy with stool A/P Problem List: (1) Dependent on ventilator (2) Open wound of abdomen (3) Ileostomy in place (4) Jejunostomy tube present (5) S/P total colectomy (6) Acute colitis (7) Gastrostomy tube in place Assessment and Plan 55 year old male s/p ex lap; s/p colectomy; G/J tube placement and would vac change -Hmg stable -Tolerating TF -Hmg 8.7 today -WBC still elevated -Primapore dressing BID and PRN to midline incision ----packing to superior and inferior areas of incision -Monitor BEV output and drainage color Attending Statement anemia of blood loss continue to observe trend dressing changes to midline, nicky remain in place Attestation The exam, history, and the medical decision-making described in the above note were completed with the assistance of the mid-level provider. I reviewed and agree with the findings presented. I attest that I had a [id number] encounter with the patient on the same day, and personally performed and documented my assessment and findings in the medical record. Problem Qualifiers (1) Open wound of abdomen: Qualified Code: S31.109D - Open wound of abdomen, subsequent encounter Lurdes Felix Jan 21, 2016 15:12 Bebo Verdin MD Jan 28, 2016 21:55
[2016-01-22] VITALS (17 sets, daily range): BP systolic 141–164; BP diastolic 79–92; PULSE 102–120; RESP 12–27; TEMP 98.1–99.2; O2SAT 97–100
[2016-01-22] MEDS: oxyCODONE HCL ORAL CONC 20 MG/ML SYRINGE PO SCH ×7 (01:00→20:50)
[2016-01-22] MEDS: FREE WATER G-TUBE SCH ×4 (01:07→16:49)
[2016-01-22] MEDS: RESP: ALBUTEROL 2.5 MG/IPRATROPIUM 0.5 MG NEB (SCH) NEB ×4 (03:45→19:41)
[2016-01-22] MEDS: CHLORHEXIDINE GLUCONATE 2 % 1 PACK (2 CLOTHS) TOP SCH (04:00)
[2016-01-22] MEDS: HYDROmorphone HCL PF 2 MG/ML VIAL IV PUSH PRN ×2 (04:14→10:46)
[2016-01-22 04:29] LABS: AUTOMATED NEUTROPHIL # 12.5 TH/MM3 (1.8-7.7); BASOPHIL # 0.1 TH/MM3 (0-0.2); BASOPHIL % 0.4 % (0.0-2.0); EOSINOPHIL # 0.2 TH/MM3 (0-0.4); HEMATOCRIT 24.7 % (39.0-51.0); LYMPH % 10.5 % (9.0-44.0); LYMPHOCYTE # 1.7 TH/MM3 (1.0-4.8); MEAN CELL VOLUME 89.9 FL (80.0-100.0); MEAN CORPUSCULAR HEMOGLOBIN 29.4 PG (27.0-34.0); MEAN CORPUSCULAR HGB CONC 32.7 % (32.0-36.0); MONO % 9.7 % (0.0-8.0); NEUT % 78.4 % (16.0-70.0); PLATELET COUNT 144 TH/MM3 (150-450); RED BLOOD COUNT 2.74 MIL/MM3 (4.50-5.90); RED CELL DISTRIBUTION WIDTH 18.2 % (11.6-17.2)
[2016-01-22 04:46] LABS: HEMO FLAGS AUTO DIFF
[2016-01-22 05:08] LABS: BICARBONATE 19.8 MEQ/L (21.0-32.0); MAGNESIUM 1.9 MG/DL (1.5-2.5); POTASSIUM 4.2 MEQ/L (3.5-5.1)
[2016-01-22] MEDS: INSULIN ASPART SUPPLEMENTAL SCALE SQ SCH ×4 (06:00→17:05)
[2016-01-22] MEDS: PANTOPRAZOLE SODIUM 40 MG VIAL IV PUSH SCH ×2 (06:31→16:49)
[2016-01-22] MEDS: METOPROLOL TARTRATE 25 MG TAB TUBE SCH ×3 (06:32→16:48)
[2016-01-22 07:16] LABS: BANDS 2 % (0-6); BASOPHILS 1 % (0-2); METAMYELOCYTES 4 % (0-1); MYELOCYTES 2 % (0-0); NEUTROPHIL # MANUAL DIFF 14.2 TH/MM3 (1.8-7.7); PLATELET ESTIMATE SMEAR LOW (NORMAL); POLYS (SEG NEUTROPHILS) 80 % (16-70); PROMYELOCYTES 1 % (0-0); SCAN/DIFF FINAL DIFF MANUAL; WBC DIFF SAMPLE 100
[2016-01-22 07:17] LABS: PLATELET MORPHOLOGY ENLARGED (NORMAL)
[2016-01-22] MEDS: CHLORHEXIDINE 0.12% (ORAL KIT) 15 ML CUP MT SCH ×2 (08:40→20:50)
[2016-01-22] MEDS: predniSONE 10 MG TAB NG SCH (08:40)
[2016-01-22] MEDS: FERROUS SULFATE 300 MG /5ML UDC TUBE SCH ×2 (08:41→20:49)
[2016-01-22] MEDS: POVIDONE IODINE 10% OINT 30 GM TUBE TOPICAL SCH (08:41)
[2016-01-22] MEDS: NEOMYCIN/POLYMYXIN/BACITRACIN OINT 15 GM TUBE TOPICAL SCH ×2 (08:41→20:50)
[2016-01-22] MEDS: MULTIVITAMINS LIQUID 5 ML UDC TUBE SCH (08:41)
--- NOTE | 2016-01-22 10:17 | HHI.CCPN ---
Subjective Remarks/Hospital Course 55-year-old male brought by EMS with altered mental status. He has been confused for 2 days but this morning has been the worst. He has history of chronic opiate medications including methadone and morphine that he takes for pain management and hence they gave him Narcan IV which brought the GCS up to 13. The blood glucose was 74. He has open wounds from his right upper and bilateral lower extremities. He has history of hepatitis C. Last week he was pealing and eating shrimps. Bedside blood sugar was 76 in the ER. He was tachycardic in 1 teens and was intubated in the ED for airway protection. Admitted to ICU with sepsis due to Staph Aureus hand infection and E. Coli bacteriemia. 12/05 Patient remains sedated with Fentanyl and intubated. On Levophed 3 mics, Vasopressin 0.03 mics and Bicarb drip. T:99.8 TF placed on hold OGT to LIWS last night - gastric drainage 525ml overnight. 12/06 Patient is sedated with Fentanyl and intubated, On Levophed 3 mics, off vasopressin. Gastric output 400ml in 24 hrs. KUB abdomen yesterday mildly distended colon otherwise non specific KUB. 12/07 Patient is off sedation remains intubated tolerated CPAP for most day yesterday. Afebrile. on no drips, tolerating tube feeds. 12/08 Patient went to OR yesterday for debridement and irrigation of right forearm and wound VAC placement. Given 2U PRBC and 2u PLT yesterday and currently receiving 1of 2 u additional PRBC. Hgb 7.7, PLT 43 this morning. Patient also started on pressors now on Levophed 10 mics. Vasopressin 0.04 mics. On no sedation. 12/09 Patient remains intubated off pressors, Afebrile. Tolerating tube feeds. Afebrile. 12/10 Patient is sedated with Fentanyl and intubated. Awake and follows commands off sedation. Afebrile. 12/11 Patient had ?SVT overnight given Lopressor 2.5mg IV x1, Remains intubated and sedated with Fentanyl. Afebrile. Tolerating TF. 12/12 Patient spoked fever last night with T: 101.5, sedated with Fentanyl and intubated. 12/13 Patient had an episode of desaturation overnight required increase FIO2/ PEE now on ACV with RR 14, TV 550, PEEP: 12, FIO2 60% with sats 100% CT chest performed overnight showed b/l consolidation and small pleural effusion. Had T: 100.0 last night. 12/14 Tolerating PS 15/CPAP 10 FiO2 40% with rSBI 38, weaning. . Awake and alert , following commands. Hypotensive overnight and levophed restarted up to 12 mcg/ min. Nurse has been weaning throughout the day. Suspected adrenal insufficiency as he was on prednisone as outpatient for gout and has not been on stress dose steroids. Given decadron. 12/15 Transfused 1 unit PRBC for Hgb 7.0 yesterday, 1 unit PRBC for Hgb 6.6 today and now Hgb 8.3. Does not clinically have e/o active GI bleeding and wound vac output nonbloody. Stool 1500 output, C diff negative. No abdominal pain. Remains Awake and alert, remained on CPAP 10/5 last night and is now tolerating CPAP 5/5. 12/16: Extubated yesterday tolerating well. Breathing comfortably. Able to follow commands. UO 1.8 L in 24 hours. Na slightly increased to 153. 12/17: Significantly worse this AM. WBC up to 28 from 16. Hgb 5.2 from 7.9. tachycardic. pale this AM. states he feels tired. Continues on BiPAP. Plan for debridement of his arms today. LIJ CVL does not have any signs of overt infection. 12/18: Blood cell count continues to rise today to 30 from 28. Required 1 unit of blood for hemoglobin of 6.6 which improved to 7.7 this morning. However, patient remains tachycardic in the 120s and significantly pale. CT abdomen and pelvis ordered and pending. Tachypneic with respiratory rate in the 30s. Only small amount of dark tarry stool yesterday with approximately 300 cc of stool output. C. difficile toxin negative 3. After discussion with infectious disease, restart vancomycin, cefepime, Flagyl, micafungin. Horn cultures are pending. Per discussion with GI, will not scope as endoscopy is high risk given his tenuous respiratory status this point. Slightly worse hypernatremia as well as worsening acute kidney injury this morning. 12/19: POD 1 s/p ex-lap, washout for perforated ascending colon with extended right hemicolectomy, primary ileocolic anastamosis, open abdomen, septic shock, acute hypoxic and hypercarbic respiratory failure. Significantly critically ill overnight: required 6L ivf resuscitation, 1 unit prbc, norepinephrine, vasopressin, stress dose hydrocortisone. This morning, remains on high-dose vasopressors. still has large volume ivf requirement. Significant SIRS response. Vent requirements increasing with all this volume resuscitation, PEEP up to 10. He remains critically ill, and although I do believe we have surgical source control, I anticipate he will continue to clinically decline before he starts to make improvements. 12/20: Off pressors. follows commands on sedation holiday. +11L over last 3 days during acute illness, +22L since admission. We are going to have to get some of this volume back before we are able to close him given his severe anasarca. 12/21: Taken back to the OR yesterday afternoon for washout and completion colectomy. Postoperatively was significantly under resuscitated as well as had ongoing active oozing. Patient was coagulopathy. The patient was in distributive and hemorrhagic shock. The patient was given multiple units of blood products overnight. Patient was thrombocytopenic, hypofibrinogenemic, coagulopathic. Given significant volume of blood product resuscitation: 24h blood products: 13 prbc 8 ffp 2 plt 1 10-pack cryo This morning continues to have significant amount of bright red output out of his BEV and wound VAC, approximately 500 cc an hour out of his wound VAC, and approximately 75 an mils every 10 minutes out of a BEV. I discussed with surgery and we will correct his coagulopathy and plan to go back to the OR for exploration early this afternoon. 12/22: Clinically starting to improve hemodynamically. off vasopressors. Net+ 26L. CVP rising to 14. UOP adequate. Hgb 7 this AM. 12/23 Seen postop. Hypertensive, BP improved with additional pain medicine. Remains net positive but urine output excellent 3L in 24 hours. Remains on Lasix gtt. went to OR today status post wound VAC change and partial closure 12/24: Fascia was closed yesterday. Wound Vac in place. Remains sedated. -2L negative balance, but with increasing BUN/creat. Discontinue Bumex infusion, start scheduled Bumex 2 mg IV every 12 with IV albumin. 12/25: Overnight became hypotensive requiring Levophed to be restarted. Hemoglobin dropped to 4.1. Noted to have bloody drainage from G-tube and dorsal ileostomy with black stool output 12/26: s/p EGD yesterday-2 gastric ulcers bleeding, stomach a significant part had decreased discoloration indicating probable ischemia. s/p epi injection and cauterization. Continues to have coffee ground G tube output, black tarry Ileostomy output. Hemoglobin down to 6.4 getting 2 units of PRBC. GI recent recommending intervention radiology consult. 12/27: For trach today. Meds ordered. Hgb decline consistent with recent transfusions and senescent cells. 12/28: Trach clean, dry. Start SBTs. Check prealbumin. Continue TPN. 12/29: Looks in direction of voice. I have not seen more purposeful reactions. Line > 12 days old, replace today. Prealbumin 20 - good response to TPN. 12/30: Remains vented, encephalopathic, puss like drainage from left hand, WBC increased 01/01: no significant changes. continues to remain critically ill with minimal improvements over the last week. abdomen closed. still total body volume overloaded. 01/02: more awake today than yesterday. continues to be critically ill with minimal improvements overall. need to look towards placement. -900 yesterday. 01/03: up in chair yesterday. tolerated short run of SBT 15/5/40%. net euvolemic. wbc downtrending. 01/04: wbc slightly uptrended 33 from 30, more acidotic on BMP (14 from 20). Also spiking fevers to 102.3 despite tylenol. continues on broad spectrum abx. yesterday's cxr had what may be a new LLL infiltrate. today, though, he is following commands and more awake and alert. 01/05: LLL pna clinically and based on bronch. CT c/a/p done last night without any significant intra-abdominal change. small left pleural effusion which appears simple in nature, and LLL consolidation. ID broadened abx. today , wbc downtrending. culture data pending. Hgb 7 this AM. 01/06: Underwent exploratory laparotomy last night with findings of bleeding gastric ulcer which was oversewn by Dr. Verdin abdomen left open with wound VAC in place. Received 3 units PRBCs overnight. Remains on Wesley-Synephrine drip this morning for hypotension. Remains sedated, on mechanical ventilation. 01/07: Remains sedated, on mechanical ventilation. For abdominal incision site closure today. Significant positive fluid balance over the last 2 days. Off pressors currently. Lasix to mobilize fluid. 01/08: Remains sedated, on mechanical ventilation via tracheostomy. Underwent abdominal incision site closure this morning. Remains off pressors. Anasarca noted. Blood cultures from 01/04 growing Nava parapsilosis. 01/09: Drowsy/sedated, arousable, on mechanical ventilation via tracheostomy. TPN started yesterday. To be started on J-tube feeds per discussion with surgery 01/10: Sedated, arousable, on mechanical ventilation via tracheostomy. Remains on TPN. J-tube feeds being started today. 01/11: Was on T piece yesterday and rested on C Pap overnight. On TPN. Advanced J-tube feeds to 20 cc an hour today. Attempt T piece as tolerated. 01/12: Awake, tracks with his eyes. On C Pap overnight. Tolerated T piece during daytime yesterday. 01/13: Awake and alert. Was on T piece all day yesterday and was placed back on C Pap at 1:45 AM this morning. Does not appear to be in any acute distress. Tolerating J-tube feeds at 20 cc per hour. 01/14: Drowsy, easily arousable. Was on T piece all day yesterday and rested on C Pap at night. Tolerating J-tube feeds at 40 cc an hour with goal of 60 cc per hour. On TPN which will be discontinued after current bag. BEV drain with cloudy drainage. 01/15 Was placed back on ACV yesterday around 9 am due to tachypnea and remained on ACV overnight. Now on CPAP 11/20 and tolerating. BEV in lower abdomen had purulent output yesterday but RN states looks better today. Tolerating tube feeds, stool in ostomy. Off TPN. Removing CVL. 01/16 Hgb 6.6 on CBC this morning, lab draw, repeat pending. Tachycardia persists but otherwise no hemodynamic change. The NGT output yesterday was bilious, today brown/slight coffee grounds but mostly clear. No blood from BEV' s.Has been tolerating jejunal tube feeds, placed on hold for now. Has been tolerating CPAP 10/5 with RSBI 10s. GI/General surgery updated. 01/17 Hemoglobin 8.0. EGD performed yesterday showing gastric ulcers with no active bleeding. Abdominal wound dressing change today. Plan to begin trickle feeds today per general surgery. 01/18 Hgb 7.3. Tolerating trickle feeds that were resumed per general surgery.Tolerated Tpiece 2 hours yesterday. On CPAP 8/5 overnight. Now on Tpiece about 1 hour and doing well. Will continue intermittent Tpiece trials throughout the day with rest on CPAP in between. Watching off abx; cefepime discontinued 01/16. Remains on fluconazole for candidemia. Subjective: 01/19 Trach developed cuff leak overnight. I exchanged Trach at bedside this morning. Tolerated Tpiece 2 hours, now resting on CPAP 8/5. Doing 2 piece trials up to 2 hours as tolerated tid and then plan to start extending duration of Tpiece trials from there. Tolerating tube feeds. 01/20 Tmax 99.2. Continued Protonix twice a day, noted melena continues in ostomy bag. Patient's T piece trials extended to 4 hours today, maximum toleration. Repeat blood cultures 01/19 still pending, WBC count still elevated. Wound care to be consulted for clarification of all specific dressing changes noted new reddened skin breakdown area on sacrum ,and eschar noted several areas left upper extremity all skin margins of wound noted erythematous. rn prior authorization Mattie Yost in attendance of dressing change CHALO, noted no change in left upper extremity appearance in the last 30 days per her assessment.Requested Plastic Surgery reassess LUE and wound care protocol.Patient continues to tolerate tube feeds no residual noted. 01/21 Tmax 99.0. Overnight the patient continued to have episodes of tachycardia , some heart rate 130, appear non-pain related,requiring PRN dosing of antihypertensive meds. Blood cultures returned this morning gram positive cocci. Plan for CT of the abdomen and pelvis 01/22 discussed with and per general surgery.. Discussion of wounds with Dr. Pedro, plastic surgery yesterday, plans for reevaluation by plastic surgery and definitive/ instructions regarding wound care plan for today, of focus left upper extremity. Objective Vital Signs Date Time Temp Pulse Resp B/P Pulse Ox O2 Delivery O2 Flow Rate FiO2 01/22/16 08:00 98.1 104 19 151/89 100 01/22/16 08:00 40 01/22/16 07:37 Ventilator 01/20/16 16:45 6.00 Intake and Output 01/21/16 01/21/16 01/21/16 07:59 15:59 23:59 Intake Total 474 ml 897 ml 576 ml Output Total 965 ml 1415 ml 650 ml Balance -491 ml -518 ml -74 ml Result Diagram: 01/22/16 0353 01/22/16 0353 Imaging Last 48 hours Impressions Chest X-Ray 01/07/16 0000 Signed Impressions: Service Date/Time: Thursday, January 07, 2016 04:23 - CONCLUSION: Worsening consolidation or atelectasis at the left mid and lower lung. Some degree of left effusion may also be contributing to this. Arnaldo Reyes MD Chest X-Ray 01/06/16 0000 Signed Impressions: Service Date/Time: Wednesday, January 06, 2016 19:46 - CONCLUSION: 1. Basilar airspace disease improved from January 04. Tracheostomy and right central line in satisfactory position. Nomi Falcon MD Abdomen/Pelvis CT 01/06/16 0000 Signed Impressions: Service Date/Time: Wednesday, January 06, 2016 22:07 - CONCLUSION: 1. Over the last day there is development of a large mass in the left upper quadrant measuring up to 18 x 13 cm which appears to be associated with the stomach. The mass is characterized by somewhat concentric areas of decreased and increased attenuation with multiple locules of air. Primary differential diagnosis is hemorrhage into the gastric wall with gastric pneumatosis and possibly gastric ischemia. Gastrostomy is again noted anteriorly. 2. Remainder the exam is relatively stable with drainage tube left upper quadrant, splenectomy, bilateral effusions, feeding jejunostomy and drain within the pelvis. There is also diffuse anasarca and nonobstructing renal calculi. Nomi Falcon MD Last Impressions Chest X-Ray 12/17/15 0600 Signed Impressions: Service Date/Time: Thursday, December 17, 2015 03:25 - CONCLUSION: Persistent left lower lobe consolidation. Osmar Alegria MD Chest CT 12/14/15 0000 Signed Impressions: Service Date/Time: Monday, December 14, 2015 06:12 - CONCLUSION: 1. Cardiomegaly with bilateral consolidation, likely CHF. Pneumonia cannot be excluded. 2. Small right pleural effusion. Wojciech Lockhart MD Abdomen X-Ray 12/06/15 0000 Signed Impressions: Service Date/Time: November 09:53 - CONCLUSION: Nonspecific KUB. Air is seen within a mildly distended colon but contrast is clearly seen in the rectum. Arnaldo Reyes MD Abdomen/Pelvis CT 12/04/15 0000 Signed Impressions: Service Date/Time: Friday, December 04, 2015 16:24 - CONCLUSION: 1. Mildly distended small bowel in the mid and lower abdomen. Contrast is clearly seen extending into the distal small bowel and ascending colon so a complete obstruction is not seen. A transition point is not seen. This pattern likely represents an ileus versus a partial obstruction. 2. Multiple nonobstructing renal stones. 3. Abnormal appearance of the spleen which appears to represent a splenule. It could be correlated if the patient has had either primary splenic removal or splenic injury and this is what is either left of the spleen or a developing splenule. This is likely of no significance. 4. Mild ascites. 5. Increased density within the gallbladder representing either tumefactive sludge or noncalcified stones. 6. Mild bilateral pleural effusions with prominent areas of lower lobe atelectasis or consolidation at the bases bilaterally. 7. Subacute to chronic bilateral rib fractures and multiple compression fractures in the lower thoracic and lumbar spine as described above. The patient does have a prior CT examination from 08/26/2014. All the compression deformities described above are new when compared to that scan. Arnaldo Reyes MD Head CT 12/02/15 1013 Signed Impressions: Service Date/Time: Wednesday, December 02, 2015 11:00 - CONCLUSION: 1. No intracranial abnormality is seen. 2. Air-fluid level in the right maxillary sinus. Arnaldo Reyes MD Objective Remarks Jevity 1.5 @ 60 mL per hour GENERAL: Middle-aged chronically critically ill-appearing male, lying in bed, on Tpiece via trach. HEENT: NCAT. mucous membranes moist. NECK: trach in place. obese neck. difficult to assess JVD. RESPIRATORY: On Tpiece, . Breath sounds present bilaterally, scattered rhonchi , diminished bibasilar, no wheezing . CARDIOVASCULAR: regular, tachycardic ~110-130. Sinus tach on monitor. No murmurs rubs or gallops. GASTROINTESTINAL: J tube in place with tube feeds running . Gauze dressings in place inferior aspect of midline incision. L side BEV drain in mid lower abdomen with with cloudy/darker drainage. R BEV mid lower abdomen with serous drainage. Ostomy with soft ,melena noted. Hypoactive bowel sounds. MUSCULOSKELETAL: Generalized anasarca, doughy pitting edema 2+ bilateral feet. Multiple open wounds in the lower extremity, without exudate (observed on 01/15 , today have been wrapped in gauze) RUE - with wound vac in place over right arm with mostly serous, output. L upper extremity gauze dressing in place; L upper extremity NEURO: Awake, opens eyes spontaneously, makes eye contact and smiles. Moves bilateral feet to command. 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 - Tylenol 650mg per tube q6h discontinued 01/15 - Dilaudid 2mg Iv q4h prn for breakthrough pain. - oxycodone 20mg per tube q4h scheduled Respiratory Acute respiratory failure-extubated 12/16/15, reintubated for surgery 12/18 Acute hypoxic and hypercarbic respiratory failure Acute healthcare associated pneumonia- resolved NIGEL on home CPAP - Perc Tracheostomy 12/27 (Dr. Miller). Trach exchanged 8.0 shiley with cuff on 01/19. - Vent bundle. Head of bed at 30 degrees. Duoneb q6h and prn. - Tpiece trials extended duration of Tpiece trials to 4 hours on then return to CPAP 4 hrs,( 4 hrs TID). --CXR 01/15 - L pleural effusion. 01/21 Left basilar density -. Continue fluid mobilization with lasix. CV Hemorrhagic shock- resolved Septic Shock- resolved Volume overload - Maintain MAP > 65 mmHg. - Cortisol level 14 on 12/14 - Stopped stress dose hydrocortisone on 01/12 and started prednisone 10 mg daily 01/13. If hemodynamics changing or if returns to OR would need stress dose hydrocortisone again. - Echo 12/07 EF 65-70%, grade I diastolic dysfunction - Metoprolol 12.5 per tube q8 hours we'll increase frequency to every 6 hours, and very to persistent tachycardia FENRenal: DEIRDRE Hypernatremia (resolved) Hypophosphatemia Anasarca, third spacing. Severe hypoalbuminemia - Hypernatremia improved Following D5 @ 50 milliliters per hour, now off. Free water flush 100 q6 - Today will give Lasix 40 mg IV following 1 unit PRBC and give additional Lasix 40 mg IV at 0200 accompanied by albumin 25 gram. - Feurea never resulted, will check FEna before lasix. -Creatinine improving from 2.2 to 1.76 today. Urine eos negative. Off vancomycin. Avoid nephrotoxins. Phos is elevated following aggressive replacement. Will monitor. -Multivitamin q/day GI Acute GIB, hemorrhagic shock (resolved, now with recurrent anemia but not shock) Perforated right colon with colitis s/p ex-lap, extended right hemicolectomy with primary ileocolic anastamosis, washout, open abdomen (12/18) s/p Ex lap 01/05 for bleeding gastric ulcer Acute protein calorie malnutrition- severe Chronic hepatitis C s/p interferon/ribavirin years ago. Liver biopsy 04/14/08 Melena - EGD 12/26/15 showed 2 large gastric ulcers with active bleeding status post epinephrine infusion and cauterization - OR on 12/24 with Removal of VAC, washout, pancreatic drain and pelvic drain placement, gastrostomy, feeding jejunostomy and closure of abdomen with application of VAC device in the subcutaneous tissue. -to OR 01/05 with GI bleeding and hemorrhagic shock. Had bleeding gastric ulcer and pneumatosis of stomach. Underwent gastrotomy with ligation of gastric ulcer , lysis of adhesions, wound VAC placement -01/16 Endoscopy showed - ulcers at antrum and cardia without stigmata of bleeding and no exposed vessel. Granulation tissue at suture line without bleeding. Small ulceration there also without bleeding. Duodenum normal. At low risk for UGI bleeding per GI, okay for anticoagulation from their point of view. Avoid NSAIDS/ASA. NGT removed 01/16, to remain out per GI; Dr. Sanchez. Repeat EGD in 2 months ( Mar)per GI recs. -Prior TPN stopped 01/01. Again on TPN 01/08-01/14. -Continue Protonix 40 g IV q12h -Continue Jevity 1.5 goal rate at 60 mL per hour per nutrition/ GI recommendations. -CT abdomen pelvis without contrast scheduled 01/22 Heme: Acute Anemia secondary to acute blood loss Thrombocytopenia Hypofibrinogenemia secondary to consumption and acute blood loss Coagulopathy secondary to consumption and acute blood loss --monitor CBC --Hep PLT ab negative on 12/03 - Ferrous Sulfate 300mg bid - transfused 3 units PRBCs 01/05- -Hgb of 6.6 on 01/16 was a lab error. The hemoglobin was 8.2 on recheck without any transfusion provided. -Hgb continues trickle down. Will transfuse 1 unit PRBC today in view of Hgb 7.1 and tachycardia increased to 120s (baseline is 104-110) ID Severe sepsis Necrotizing Fascitis - MSSA on wound culture 12/07. Ecoli bacteremia 12/01 MSSA bacteremia 12/05. Cleared on f/u blood culture 12/07, 12/12. Candidemia (blood culture 01/04 with Nava parapsilosis) Sepsis of Intra-abdominal origin. C. difficile toxic megacolon (based on pathology C diff vs ischemia, C diff test negative) Bacteremia- gram positive cocci 01/21 --Debridement 12/01 p.m at bedside by Dr Pedro and Dr. Hartmann --R hand, forearm and olecranon bursa I and D and Wound vac 12/07 Dr Chavez. -- ABX per ID: Now on Fluconazole alone 01/09 #11 Previously: cefepime 12/17-01/16,flagyl IV 12/17-01/16 , Vancomycin 01/04-01/16 ( trough 20 on 01/15). Micafungin stopped per ID 01/08. Amphotericin B started by ID on 01/08 and stopped 01/09. Nava parapsilosis in blood culture from 01/04 most likely from an intra- abdominal source(central line was changed on 01/04). Last set of blood cultures have been negative. BEV drain with cloudy drainage 01/14, now clear serous. General surgery aware and following. Noted WBC 18 from , if continues uptrend or if evidence of recurrent sepsis off abx, will discuss repeat CT abd/pelvis with surgery. Seen by Dr. Wu 01/13 and no evidence of endogenous fungal endophthalmitis ID following, Dr. Becerra Follow-up blood culture results Wound care following for leg wounds. -Plastic Surgery requested for reassessment of LUE and skin care protocol for left arm 01/20, follow-up recommendations --12/17 blood cultures: NGTD 12/17 central line culture: NGTD 12/17 urine cultures: NGTD 12/17 sputum cultures: NGTD C. difficile toxin 12/17: Negative (3rd negative toxin screen) -01/04 Blood culture with nava parapsilosis 01/04: horn culture, bronch with BAL, 01/04: CT chest/abd/pelvis without contrast: LLL consolidation, otherwise unchanged. 01/04: clinically LLL VAP. 01/08 Blood cultures: no growth 01/09 blood culture peripheral - NGTD 01/12 sputum cutlure - neg 01/12 - urine culture NGTD. Endocrine: Hyperglycemia of Critical Illness Diabetes - off Insulin drip - Levemir BID on hold. - On low-dose insulin sliding scale with bedside glucose every 6 hours, not requiring coverage. Glucose at 104 - Prednisone 10mg po daily since 01/13. Previously was on prednisone as an outpatient. Has been on hydrocortisone intermittently when he has gone to the OR or decompensated. Prophylaxis: GI Prophylaxis: -- Protonix IV BID DVT Prophylaxis: - SCDs Subcutaneous heparin on hold since 01/05. Remained on hold due to concern for bleeding. Patient has melena (which may be old) and ongoing anemia so will continue to hold for now. ACCESS: --PIV. Patient needs PICC for ongoing meds/labs. Discussed with ID, will place if followup blood cultures negative from 01/19, awaiting results. Right IJ TLC 01/04-01/15 #12. PT/OT. OOB. Discussed with SAW REPAIRER at bedside. This patient remains critically ill with one or more organ systems which are or may become a threat to life. I have spent in excess of 37 minutes discontinuously in the care and management of this patient. This time is exclusive of procedures, and includes, but is not limited to, evaluation of the patient, review of the medical record, discussions with family, consultants, nursing staff, or respiratory therapy, and documentation in the medical record. Physician Fe Poole Problem Qualifiers (1) Respiratory failure: Qualified Code: J96.00 - Acute respiratory failure, unspecified whether with hypoxia or hypercapnia (2) Altered mental status: Qualified Code: R41.0 - Delirium (3) Sepsis: Qualified Code: A41.9 - Sepsis, due to unspecified organism Fe Poole MD Jan 22, 2016 10:17
[2016-01-22] MEDS: FLUCONAZOLE 400 MG PREMIX BAG 200 ML IV SCH (10:44)
--- NOTE | 2016-01-22 12:55 | PD.PLAS.PN ---
Subjective Remarks Patient is resting comfortably. Objective Vital Signs Date Time Temp Pulse Resp B/P Pulse Ox O2 Delivery O2 Flow Rate FiO2 01/22/16 12:00 117 01/22/16 10:00 119 01/22/16 08:00 98.1 104 19 151/89 100 01/22/16 08:00 40 01/22/16 08:00 112 01/22/16 07:37 100 Ventilator 01/22/16 07:37 100 40 01/22/16 06:00 120 01/22/16 04:00 40 01/22/16 04:00 98.4 112 25 153/83 99 01/22/16 04:00 112 01/22/16 03:45 99 40 01/22/16 02:00 112 01/22/16 01:00 100 40 01/22/16 00:00 98.7 103 12 155/80 100 01/22/16 00:00 103 01/22/16 00:00 40 01/21/16 22:06 100 40 01/21/16 22:00 105 01/21/16 20:00 118 01/21/16 20:00 40 01/21/16 20:00 98.4 118 13 128/74 100 01/21/16 19:39 100 40 01/21/16 18:00 118 01/21/16 16:00 98.4 112 12 144/83 100 01/21/16 16:00 40 01/21/16 16:00 112 01/21/16 15:59 98 40 01/21/16 14:00 121 I/O 01/21/16 01/21/16 01/21/16 01/22/16 01/22/16 01/22/16 07:00 15:00 23:00 07:00 15:00 23:00 Intake Total 474 ml 897 ml 576 ml 661 ml Output Total 965 ml 1415 ml 650 ml 860 ml Balance -491 ml -518 ml -74 ml -199 ml IV Total 77 ml 280 ml 68 ml 80 ml Tube Feeding 397 ml 397 ml 358 ml 421 ml Tube Irrigant 120 ml Other 100 ml 150 ml 160 ml Output Urine Total 850 ml 1175 ml 600 ml 600 ml Stool Total 50 ml 150 ml 25 ml 150 ml Drainage Total 65 ml 90 ml 25 ml 110 ml Laboratory Tests Test 01/22/16 03:53 White Blood Count 16.0 Red Blood Count 2.74 Hemoglobin 8.1 Hematocrit 24.7 Mean Corpuscular Volume 89.9 Mean Corpuscular Hemoglobin 29.4 Mean Corpuscular Hemoglobin 32.7 Concent Red Cell Distribution Width 18.2 Platelet Count 144 Mean Platelet Volume 9.8 Neutrophils (%) (Auto) 78.4 Lymphocytes (%) (Auto) 10.5 Monocytes (%) (Auto) 9.7 Eosinophils (%) (Auto) 1.0 Basophils (%) (Auto) 0.4 Neutrophils # (Auto) 12.5 Lymphocytes # (Auto) 1.7 Monocytes # (Auto) 1.6 Eosinophils # (Auto) 0.2 Basophils # (Auto) 0.1 CBC Comment AUTO DIFF Differential Total Cells 100 Counted Neutrophils % (Manual) 80 Band Neutrophils % 2 Lymphocytes % 3 Monocytes % 7 Basophils % 1 Neutrophils # (Manual) 14.2 Metamyelocytes 4 Myelocytes 2 Promyelocytes 1 Differential Comment FINAL DIFF MANUAL Platelet Estimate LOW Platelet Morphology Comment ENLARGED Sodium Level 143 Potassium Level 4.2 Chloride Level 111 Carbon Dioxide Level 19.8 Anion Gap 12 Blood Urea Nitrogen 82 Creatinine 1.76 Estimat Glomerular Filtration 41 Rate Random Glucose 130 Calcium Level 7.7 Phosphorus Level 4.8 Magnesium Level 1.9 Date/Time Procedure Status Source Growth 01/20/16 15:37 Aerobic Blood Culture - Preliminary Resulted Blood Peripheral Staph Sp Coagulase Negative 01/20/16 15:37 Anaerobic Blood Culture - Preliminary Resulted Blood Peripheral NO GROWTH IN 2 DAYS Result Diagram: 01/22/16 0353 01/22/16 0353 Exam Findings Wound vac is in place to right upper extremity. Wound vac is not removed for exam. On exam of the left upper extremity, dark eschar is present covering the wound. The edges of the eschar are macerated. Periwound skin is without cellulitis. Assessment and Plan Diagnosis: (1) Open wound of right upper extremity with complication Assessment and Plan For the left arm wound, continue with application of povidone iodine ointment daily. The eschar should be debrided eventually, but it is stable as is, so surgery can wait until the patient is more stable. We will continue to monitor. We did not remove the wound vac from the right arm today. We would like to see the wound at the next wound vac change. Discussed with RN. The exam, history, and the medical decision-making described in the above note were completed with the assistance of the mid-level provider. I reviewed and agree with the findings presented. I attest that I had a [id number] encounter with the patient on the same day, and personally performed and documented my assessment and findings in the medical record. Barbara Pedro M.D. [place] Jan 22, 2016 12:55
[2016-01-22 14:09] LABS: UR UREA/CREAT RATIO 42.14 mg/mg (())
--- NOTE | 2016-01-22 16:51 | HHI.IDPN ---
Subjective Subjective Remarks Doing OK WBC slowly trending down Afebrile tolerating TF remains on vent Antibiotics fluconazole Lines RSC TLC Past Medical History RA HCV sp splenectomy Allergies: Coded Allergies: Compazine (Verified Allergy, Severe, VOMITING, RASH, 08/26/14) SLURRED SPEECH, MIGRAINES Demerol (Verified Allergy, Severe, VOMITING, 08/26/14) Levaquin (Verified Allergy, Severe, 08/26/14) Penicillin (Verified Allergy, Severe, Rash, 08/26/14) Phenergan (Verified Allergy, Severe, VOMITING, 08/26/14) Uncoded Allergies: ANTI-CONVULSIVES (Allergy, Severe, MIGRAINES, SLURRED SPEECH,, 01/23/14) Objective . Vital Signs Date Time Temp Pulse Resp B/P Pulse Ox O2 Delivery O2 Flow Rate FiO2 01/22/16 16:24 99 40 01/22/16 12:00 40 01/22/16 12:00 98.2 118 27 164/87 97 01/22/16 12:00 117 01/22/16 10:00 119 01/22/16 08:00 98.1 104 19 151/89 100 01/22/16 08:00 40 01/22/16 08:00 112 01/22/16 07:37 100 Ventilator 01/22/16 07:37 100 40 01/22/16 06:00 120 01/22/16 04:00 40 01/22/16 04:00 98.4 112 25 153/83 99 01/22/16 04:00 112 01/22/16 03:45 99 40 01/22/16 02:00 112 01/22/16 01:00 100 40 01/22/16 00:00 98.7 103 12 155/80 100 01/22/16 00:00 103 01/22/16 00:00 40 01/21/16 22:06 100 40 01/21/16 22:00 105 01/21/16 20:00 118 01/21/16 20:00 40 01/21/16 20:00 98.4 118 13 128/74 100 01/21/16 19:39 100 40 01/21/16 18:00 118 01/21/16 01/21/16 01/22/16 15:00 23:00 07:00 Intake Total 897 ml 576 ml 661 ml Output Total 1415 ml 650 ml 860 ml Balance -518 ml -74 ml -199 ml IV Total 280 ml 68 ml 80 ml Tube Feeding 397 ml 358 ml 421 ml Tube Irrigant 120 ml Other 100 ml 150 ml 160 ml Output Urine Total 1175 ml 600 ml 600 ml Stool Total 150 ml 25 ml 150 ml Drainage Total 90 ml 25 ml 110 ml . Laboratory Tests Test 01/21/16 01/22/16 03:30 03:53 White Blood Count 18.0 TH/MM3 16.0 TH/MM3 Red Blood Count 2.97 MIL/MM3 2.74 MIL/MM3 Hemoglobin 8.7 GM/DL 8.1 GM/DL Hematocrit 26.9 % 24.7 % Mean Corpuscular Volume 90.5 FL 89.9 FL Mean Corpuscular Hemoglobin 29.2 PG 29.4 PG Mean Corpuscular Hemoglobin 32.2 % 32.7 % Concent Red Cell Distribution Width 18.2 % 18.2 % Platelet Count 153 TH/MM3 144 TH/MM3 Mean Platelet Volume 10.3 FL 9.8 FL Neutrophils (%) (Auto) 78.5 % 78.4 % Lymphocytes (%) (Auto) 10.0 % 10.5 % Monocytes (%) (Auto) 10.6 % 9.7 % Eosinophils (%) (Auto) 0.6 % 1.0 % Basophils (%) (Auto) 0.3 % 0.4 % Neutrophils # (Auto) 14.2 TH/MM3 12.5 TH/MM3 Lymphocytes # (Auto) 1.8 TH/MM3 1.7 TH/MM3 Monocytes # (Auto) 1.9 TH/MM3 1.6 TH/MM3 Eosinophils # (Auto) 0.1 TH/MM3 0.2 TH/MM3 Basophils # (Auto) 0.1 TH/MM3 0.1 TH/MM3 CBC Comment AUTO DIFF AUTO DIFF Differential Total Cells 100 100 Counted Neutrophils % (Manual) 75 % 80 % Band Neutrophils % 10 % 2 % Lymphocytes % 2 % 3 % Monocytes % 7 % 7 % Eosinophils % 2 % Neutrophils # (Manual) 16.0 TH/MM3 14.2 TH/MM3 Metamyelocytes 4 % 4 % Nucleated Red Blood Cells 1 /100 WBC Differential Comment FINAL DIFF FINAL DIFF MANUAL MANUAL Toxic Granulation 1+ Platelet Estimate NORMAL LOW Platelet Morphology Comment NORMAL ENLARGED Acanthocytes OCC Keratocytes OCC Basophils % 1 % Myelocytes 2 % Promyelocytes 1 % Laboratory Tests Test 01/21/16 01/22/16 03:30 03:53 Sodium Level 144 MEQ/L 143 MEQ/L Potassium Level 4.2 MEQ/L 4.2 MEQ/L Chloride Level 112 MEQ/L 111 MEQ/L Carbon Dioxide Level 17.9 MEQ/L 19.8 MEQ/L Anion Gap 14 MEQ/L 12 MEQ/L Blood Urea Nitrogen 84 MG/DL 82 MG/DL Creatinine 1.98 MG/DL 1.76 MG/DL Estimat Glomerular Filtration 36 ML/MIN 41 ML/MIN Rate Random Glucose 104 MG/DL 130 MG/DL Calcium Level 7.8 MG/DL 7.7 MG/DL Phosphorus Level 4.8 MG/DL Magnesium Level 1.9 MG/DL Microbiology Date/Time Procedure Status Source Growth 01/20/16 12:59 Aerobic Blood Culture - Preliminary Resulted Blood Peripheral NO GROWTH IN 2 DAYS 01/20/16 12:59 Anaerobic Blood Culture - Final Resulted Blood Peripheral QNS - SEE AEROBE REPORT 01/20/16 15:37 Aerobic Blood Culture - Preliminary Resulted Blood Peripheral Staph Sp Coagulase Negative 01/20/16 15:37 Anaerobic Blood Culture - Preliminary Resulted Blood Peripheral NO GROWTH IN 2 DAYS Imaging Last Impressions Chest X-Ray 01/16/16 0600 Signed Impressions: Service Date/Time: Saturday, January 16, 2016 03:01 - CONCLUSION: No appreciable change. Freddy Connor MD Abdomen/Pelvis CT 01/06/16 0000 Signed Impressions: Service Date/Time: Wednesday, January 06, 2016 22:07 - CONCLUSION: 1. Over the last day there is development of a large mass in the left upper quadrant measuring up to 18 x 13 cm which appears to be associated with the stomach. The mass is characterized by somewhat concentric areas of decreased and increased attenuation with multiple locules of air. Primary differential diagnosis is hemorrhage into the gastric wall with gastric pneumatosis and possibly gastric ischemia. Gastrostomy is again noted anteriorly. 2. Remainder the exam is relatively stable with drainage tube left upper quadrant, splenectomy, bilateral effusions, feeding jejunostomy and drain within the pelvis. There is also diffuse anasarca and nonobstructing renal calculi. Nomi Falcon MD Chest CT 01/05/16 0000 Signed Impressions: Service Date/Time: Tuesday, January 05, 2016 23:15 - CONCLUSION: 1. Persistent left lower lobar consolidation. Improved consolidative infiltrates in the right lower lung. 2. Interval increase size bilateral pleural effusions , left greater than right. Osmar Alegria MD Celiac/Hepatic Arteriogram 12/27/15 0000 Signed Impressions: Service Date/Time: December 13:41 - CONCLUSION: 1. No active GI bleed identified. Robert Mckinney MD Abdomen X-Ray 12/18/15 0000 Signed Impressions: Service Date/Time: Friday, December 18, 2015 16:05 - CONCLUSION: Feeding tube tip is at the gastric antrum. Arnaldo Elias MD Head CT 12/02/15 1013 Signed Impressions: Service Date/Time: Wednesday, December 02, 2015 11:00 - CONCLUSION: 1. No intracranial abnormality is seen. 2. Air-fluid level in the right maxillary sinus. Arnaldo Reyes MD Physical Exam GENERAL: On vent , awake alert SKIN: + minimal jaundice. Anasarca HEENT: + mild icterus, no nasal discharge Chemosis + NECK: Trach in place CARDIOVASCULAR: systolic murmur in base of heart RESPIRATORY/CHEST: scattered rhonchi on auscultation.L side with crackes GASTROINTESTINAL: dressing in place JPsx2 in place with seropurulent drainage Stoma with brown stool Incision packed min d/c GENITOURINARY: Sandoval catheter in place with clear light yellow urine with sediment MUSCULOSKELETAL: Extremities no cyanosis, edema markedly improved on BLE, improved pitting edema 1-2+ RUE seen with with VAC off: near complete granulatinon of forearm wound, minimal necrosis of the hand dorsal wound LUE with unstageble 100% necrotic wound, probably full thickness skin loss NEUROLOGICAL: fully awake and alert , makes eye contact and follows commands communicates appropiately LINES: NO evidence of infection Assessment & Plan Remarks Sepsis related to Cdiff and Intra abdominal peritonitis. - sp subtotal colectomy and ileostomy SP colon perfocation and intraperitoneal gross contamination - wound is not healing ? Cdiff Colitis Noted Cdiff PCR is negative3/3 ? Zinc preparation in perianal care could cause false negative test. Path c/o Cdiff Colitis. - repeat path favouring ischemia RUE severe nec fasc due to MSSA - skin grafting was planned, but cancelled - S/P I and D x 3 - clinically resolved Recurretn life threatening upper GI bleeding 2/2 bleeding ulcers Persistent leukocytosis -slowly improving C. parapsilosa fungemia ? sourece intraabd vs (less likely) line - repeat BC negative - no fungal endophalmitis - Dr Parker help appreciated New issue: Low grade coag negative staph bacteremia, 1/4 bottles - no central lines - probably contaminant; would not Rx at this point PLAN: cont fluconazole - anticipate 4 weeks - can be switche d to po once pt consistently tolerates po monitor WBC fu recent BC untill final; if both sets + with same strain Coag NS will start vancomycin D/W RN dw Argelia Noonan MD Jan 22, 2016 16:51
--- NOTE | 2016-01-22 17:03 | HHI.GIFU ---
Subjective Remarks Resting in bed. No active bleeding. Tolerating TF. Stool now a dark greenish color. Nurse reports CT is ordered for tomorrow (Lisa Monroy) Objective Vitals I&O Vital Signs Date Time Temp Pulse Resp B/P Pulse Ox O2 Delivery O2 Flow Rate FiO2 01/22/16 16:24 99 40 01/22/16 12:00 40 01/22/16 12:00 98.2 118 27 164/87 97 01/22/16 12:00 117 01/22/16 10:00 119 01/22/16 08:00 98.1 104 19 151/89 100 01/22/16 08:00 40 01/22/16 08:00 112 01/22/16 07:37 100 Ventilator 01/22/16 07:37 100 40 01/22/16 06:00 120 01/22/16 04:00 40 01/22/16 04:00 98.4 112 25 153/83 99 01/22/16 04:00 112 01/22/16 03:45 99 40 01/22/16 02:00 112 01/22/16 01:00 100 40 01/22/16 00:00 98.7 103 12 155/80 100 01/22/16 00:00 103 01/22/16 00:00 40 01/21/16 22:06 100 40 01/21/16 22:00 105 01/21/16 20:00 118 01/21/16 20:00 40 01/21/16 20:00 98.4 118 13 128/74 100 01/21/16 19:39 100 40 01/21/16 18:00 118 I/O 01/21/16 01/21/16 01/21/16 01/22/16 01/22/16 01/22/16 07:00 15:00 23:00 07:00 15:00 23:00 Intake Total 474 ml 897 ml 576 ml 661 ml Output Total 965 ml 1415 ml 650 ml 860 ml Balance -491 ml -518 ml -74 ml -199 ml IV Total 77 ml 280 ml 68 ml 80 ml Tube Feeding 397 ml 397 ml 358 ml 421 ml Tube Irrigant 120 ml Other 100 ml 150 ml 160 ml Output Urine Total 850 ml 1175 ml 600 ml 600 ml Stool Total 50 ml 150 ml 25 ml 150 ml Drainage Total 65 ml 90 ml 25 ml 110 ml Laboratory Laboratory Tests Test 01/22/16 03:53 White Blood Count 16.0 Red Blood Count 2.74 Hemoglobin 8.1 Hematocrit 24.7 Mean Corpuscular Volume 89.9 Mean Corpuscular Hemoglobin 29.4 Mean Corpuscular Hemoglobin 32.7 Concent Red Cell Distribution Width 18.2 Platelet Count 144 Mean Platelet Volume 9.8 Neutrophils (%) (Auto) 78.4 Lymphocytes (%) (Auto) 10.5 Monocytes (%) (Auto) 9.7 Eosinophils (%) (Auto) 1.0 Basophils (%) (Auto) 0.4 Neutrophils # (Auto) 12.5 Lymphocytes # (Auto) 1.7 Monocytes # (Auto) 1.6 Eosinophils # (Auto) 0.2 Basophils # (Auto) 0.1 CBC Comment AUTO DIFF Differential Total Cells 100 Counted Neutrophils % (Manual) 80 Band Neutrophils % 2 Lymphocytes % 3 Monocytes % 7 Basophils % 1 Neutrophils # (Manual) 14.2 Metamyelocytes 4 Myelocytes 2 Promyelocytes 1 Differential Comment FINAL DIFF MANUAL Platelet Estimate LOW Platelet Morphology Comment ENLARGED Sodium Level 143 Potassium Level 4.2 Chloride Level 111 Carbon Dioxide Level 19.8 Anion Gap 12 Blood Urea Nitrogen 82 Creatinine 1.76 Estimat Glomerular Filtration 41 Rate Random Glucose 130 Calcium Level 7.7 Phosphorus Level 4.8 Magnesium Level 1.9 Date/Time Procedure Status Source Growth 01/20/16 15:37 Aerobic Blood Culture - Preliminary Resulted Blood Peripheral Staph Sp Coagulase Negative 01/20/16 15:37 Anaerobic Blood Culture - Preliminary Resulted Blood Peripheral NO GROWTH IN 2 DAYS Imaging Last Impressions Chest X-Ray 01/21/16 0600 Signed Impressions: Service Date/Time: Thursday, January 21, 2016 05:12 - CONCLUSION: 1. Cardiomegaly and left retrocardiac/basilar density. 2. Slight interstitial prominence. Wojciech Lockhart MD Abdomen/Pelvis CT 01/06/16 0000 Signed Impressions: Service Date/Time: Wednesday, January 06, 2016 22:07 - CONCLUSION: 1. Over the last day there is development of a large mass in the left upper quadrant measuring up to 18 x 13 cm which appears to be associated with the stomach. The mass is characterized by somewhat concentric areas of decreased and increased attenuation with multiple locules of air. Primary differential diagnosis is hemorrhage into the gastric wall with gastric pneumatosis and possibly gastric ischemia. Gastrostomy is again noted anteriorly. 2. Remainder the exam is relatively stable with drainage tube left upper quadrant, splenectomy, bilateral effusions, feeding jejunostomy and drain within the pelvis. There is also diffuse anasarca and nonobstructing renal calculi. Nomi Falcon MD Chest CT 01/05/16 0000 Signed Impressions: Service Date/Time: Tuesday, January 05, 2016 23:15 - CONCLUSION: 1. Persistent left lower lobar consolidation. Improved consolidative infiltrates in the right lower lung. 2. Interval increase size bilateral pleural effusions , left greater than right. Osmar Alegria MD Celiac/Hepatic Arteriogram 12/27/15 0000 Signed Impressions: Service Date/Time: December 13:41 - CONCLUSION: 1. No active GI bleed identified. Robert Mckinney MD Abdomen X-Ray 12/18/15 0000 Signed Impressions: Service Date/Time: Friday, December 18, 2015 16:05 - CONCLUSION: Feeding tube tip is at the gastric antrum. Arnaldo Elias MD Head CT 12/02/15 1013 Signed Impressions: Service Date/Time: Wednesday, December 02, 2015 11:00 - CONCLUSION: 1. No intracranial abnormality is seen. 2. Air-fluid level in the right maxillary sinus. Arnaldo Reyes MD Physical Exam HEENT: Normocephalic; atraumatic; no jaundice. CHEST: Resp. shallow, diminished. Tracheostomy, course breath sounds- Cpap CARDIAC: ST ABDOMEN: Soft, nondistended. Midline drsg d/i, BEV drain x 2. Ileostomy with dark greenish stool EXTREMITIES: Generalized edema. RUE wound vac SKIN: Drsg to RUE, LUE, BLE.- multiple ecchymotic areas ENFORCEMENT OFFICER: Awake, lethargic, generalized weakness (Lisa Monroy) Assessment and Plan Plan ASSESSMENT: - Drop in Hgb. Reconsulted for significant drop in Hgb. S/P EGD (01/17/16)---- > Gastric ulcers,gastritis, thickened gastric fold. Pathology Superficially eroded gastric fundic mucosa with a mild acute inflammatory. No helicobacter pylori-like organisms are present. Protonix with BID dosing. HH Stable 8.1/24.7. Pt HH still trending down, but no longer has melena in ileostomy and now does have some bleeding from wound vac. CT Abdomen and pelvis ordered for tomorrow - Upper GI bleed/Gastric Ulcers. S/P EGD (12/27/15)-----> Large clots filling the stomach. There was active bleeding from small ulcerations next to the PEG tube that was cauterized and injected with lidocaine. Next to that area, about 1-2 cm, there was a large deep ulcer which was actively bleeding, injected with lidocaine and cauterized. Significant amount of the stomach was grayish in color, possible ischemia, significant esophagitis. Went for angiogram with selective injection of the celiac origin, left gastric, gastroepiploic and SMA- No active GI bleed identified (12/27/15). S/P Exploratory laparotomy, MAKENZIE, gastrotomy with ligation of gastric ulcer, VAC placement (01/07/16). Rpt. EGD (01/17/16)----> Gastric ulcers,gastritis, thickened gastric fold. Pathology as above. - Severe anemia. 8.03/11.7 - Perforated right colon sec. to colitis, s/p ex-lap, extended right hemicolectomy with primary ileocolic anastomosis, washout, open abdomen (12/18) per surgery. Path suspicious for Ischemic vs. CDifficilie. S/P Exp. lap with subtotal colectomy (12/20). - GERD, requiring daily antacids at home. PPI. - Severe sepsis with worsening leukocytosis - RUE infection/wound. Per plastics/ID - Resp. Failure. S/P Tracheostomy Per [facility]/Electrolyte abnormalities. Creat 1.98 - Chronic hepatitis C. S/P tx with Interferon/Ribavirin 6-7 years ago. reports that he was undetectable during treatment, but did not have a sustained virological response. He has never been told that he has liver cirrhosis. Liver biopsy (04/14/08)----> chronic hepatitis C with mild periportal inflammation grade 2 and mild fibrous portal expansion stage 1. He does not drink ETOH. PLAN: - Jevity 1.5 at 60cc/hr - CT scan abdomen and pelvis without contrast tomorrow - Cont. Protonix with BID dosing - Avoid NG tube - May resume anticoagulation as necessary but no NSAIDs - Monitor HH, Transfuse as necessary - Repeat EGD in 2 months - Supportive care - Notify GI of active bleeding. - Further recommendations to follow based on results of above - Pt seen and examined by Dr. Sanders and myself and this note is written on his behalf (Lisa Monroy) Physician Comments Seen and examined with Ms. Eliana RUIZ, no active bleeding. CT scan tomorrow. GI will sign off, reconsult as needed. Thank you (Olayinka Sanders MD) Lisa Monroy Jan 22, 2016 17:03 Olayinka Sanders MD Jan 22, 2016 17:32
--- NOTE | 2016-01-22 17:20 | HHI.HCPN ---
Attempted to reach patient's , Clemencia Smith, via telephone to discuss recent diagnostic results. Blood cultures from 01/20/16 showing low-grade coag negative staph bacteremia in 1/4 bottles. WBC trending downward, 16.0 today. Infectious disease is following - will monitor WBC and continue to follow blood cultures, will initiate vancomycin if indicated. CT abdomen/pelvis ordered for tomorrow 01/23/16. . Leah Pop Jan 22, 2016 17:20
--- NOTE | 2016-01-22 18:07 | HHI.PR ---
Subjective Subjective Notes Sitting up in bed Able to mouth words at bedside Objective Vitals/I&O Vital Signs Date Time Temp Pulse Resp B/P Pulse Ox O2 Delivery O2 Flow Rate FiO2 01/22/16 16:24 99 40 01/22/16 16:00 116 01/22/16 12:00 98.2 27 164/87 01/22/16 07:37 Ventilator 01/20/16 16:45 6.00 Labs Laboratory Tests Test 01/22/16 03:53 White Blood Count 16.0 Red Blood Count 2.74 Hemoglobin 8.1 Hematocrit 24.7 Mean Corpuscular Volume 89.9 Mean Corpuscular Hemoglobin 29.4 Mean Corpuscular Hemoglobin 32.7 Concent Red Cell Distribution Width 18.2 Platelet Count 144 Mean Platelet Volume 9.8 Neutrophils (%) (Auto) 78.4 Lymphocytes (%) (Auto) 10.5 Monocytes (%) (Auto) 9.7 Eosinophils (%) (Auto) 1.0 Basophils (%) (Auto) 0.4 Neutrophils # (Auto) 12.5 Lymphocytes # (Auto) 1.7 Monocytes # (Auto) 1.6 Eosinophils # (Auto) 0.2 Basophils # (Auto) 0.1 CBC Comment AUTO DIFF Differential Total Cells 100 Counted Neutrophils % (Manual) 80 Band Neutrophils % 2 Lymphocytes % 3 Monocytes % 7 Basophils % 1 Neutrophils # (Manual) 14.2 Metamyelocytes 4 Myelocytes 2 Promyelocytes 1 Differential Comment FINAL DIFF MANUAL Platelet Estimate LOW Platelet Morphology Comment ENLARGED Sodium Level 143 Potassium Level 4.2 Chloride Level 111 Carbon Dioxide Level 19.8 Anion Gap 12 Blood Urea Nitrogen 82 Creatinine 1.76 Estimat Glomerular Filtration 41 Rate Random Glucose 130 Calcium Level 7.7 Phosphorus Level 4.8 Magnesium Level 1.9 Date/Time Procedure Status Source Growth 01/20/16 15:37 Aerobic Blood Culture - Preliminary Resulted Blood Peripheral Staph Sp Coagulase Negative 01/20/16 15:37 Anaerobic Blood Culture - Preliminary Resulted Blood Peripheral NO GROWTH IN 2 DAYS Radiology Last Impressions Chest X-Ray 12/28/15 0000 Signed Impressions: Service Date/Time: Monday, December 28, 2015 14:23 - CONCLUSION: Large left pleural effusion and left lung base consolidation. Freddy Connor MD Abdomen/Pelvis CT 12/19/15 0000 Signed Impressions: Service Date/Time: Saturday, December 19, 2015 10:57 - CONCLUSION: 1. Adjacent volume pneumoperitoneum is observed consistent with perforation of a hollow viscus. This is presumably colonic in origin due to the diffuse inflammatory process involving the colon. I do not clearly identify the source of the pneumoperitoneum however. There is mild dilatation of the small bowel likely an ileus in nature. A significant volume of ascitic fluid is noted. 2. Bibasilar atelectasis and bilateral pleural effusions. 3. Small pericardial effusion. 4. Small bilateral nonobstructing renal calculi. 5. I spoke with Dr. Sanchez concerning the findings. Osmar Chavez Jr., MD Abdomen X-Ray 12/18/15 0000 Signed Impressions: Service Date/Time: Friday, December 18, 2015 16:05 - CONCLUSION: Feeding tube tip is at the gastric antrum. Arnaldo Elias MD Chest CT 12/14/15 0000 Signed Impressions: Service Date/Time: Monday, December 14, 2015 06:12 - CONCLUSION: 1. Cardiomegaly with bilateral consolidation, likely CHF. Pneumonia cannot be excluded. 2. Small right pleural effusion. Wojciech Lockhart MD Head CT 12/02/15 1013 Signed Impressions: Service Date/Time: Wednesday, December 02, 2015 11:00 - CONCLUSION: 1. No intracranial abnormality is seen. 2. Air-fluid level in the right maxillary sinus. Arnaldo Reyes MD Cardiovascular: Regular Lungs: Clear Extremities: Other (gen edema ) Narrative Exam RIGHT arm with wound vac on Abd: Midline incision--- packing removed and replaced to superior and inferior portion of incision; RIGHT BEV with serous drainage; LEFT with darker sedimentary drainage; ileostomy with stool A/P Problem List: (1) Dependent on ventilator (2) Open wound of abdomen (3) Ileostomy in place (4) Jejunostomy tube present (5) S/P total colectomy (6) Acute colitis (7) Gastrostomy tube in place Assessment and Plan 55 year old male s/p ex lap; s/p colectomy; G/J tube placement and would vac change -Hmg stable -Tolerating TF -Hmg stable -WBC still elevated -Primapore dressing BID and PRN to midline incision ----packing to superior and inferior areas of incision -Monitor BEV output and drainage color -Plan for repeat CT Abd/Pel tomorrow to eval BEV drains Attending Statement patient seen at bedside recheck CT a/p r/o fluid collection Attestation The exam, history, and the medical decision-making described in the above note were completed with the assistance of the mid-level provider. I reviewed and agree with the findings presented. I attest that I had a [id number] encounter with the patient on the same day, and personally performed and documented my assessment and findings in the medical record. Problem Qualifiers (1) Open wound of abdomen: Qualified Code: S31.109D - Open wound of abdomen, subsequent encounter Lurdes Felix Jan 22, 2016 18:07 Bebo Verdin MD Jan 28, 2016 22:04
[2016-01-23] VITALS (19 sets, daily range): BP systolic 149–180; BP diastolic 74–90; PULSE 89–160; RESP 16–27; TEMP 97.4–98.6; O2SAT 94–100
[2016-01-23] MEDS: HYDROmorphone HCL PF 2 MG/ML VIAL IV PUSH PRN ×3 (00:47→12:37)
[2016-01-23] MEDS: FREE WATER G-TUBE SCH ×4 (00:47→17:00)
[2016-01-23] MEDS: METOPROLOL TARTRATE 25 MG TAB TUBE SCH ×4 (00:48→20:00)
[2016-01-23] MEDS: oxyCODONE HCL ORAL CONC 20 MG/ML SYRINGE PO SCH ×6 (01:00→21:00)
[2016-01-23] MEDS: RESP: ALBUTEROL 2.5 MG/IPRATROPIUM 0.5 MG NEB (SCH) NEB ×4 (03:54→19:48)
[2016-01-23] MEDS: CHLORHEXIDINE GLUCONATE 2 % 1 PACK (2 CLOTHS) TOP SCH (04:00)
[2016-01-23 04:36] LABS: AUTOMATED NEUTROPHIL # 9.6 TH/MM3 (1.8-7.7); BASOPHIL # 0.1 TH/MM3 (0-0.2); BASOPHIL % 0.6 % (0.0-2.0); EOSINOPHIL # 0.1 TH/MM3 (0-0.4); EOSINOPHIL % 1.2 % (0.0-4.0); HEMATOCRIT 23.8 % (39.0-51.0); LYMPH % 12.3 % (9.0-44.0); LYMPHOCYTE # 1.5 TH/MM3 (1.0-4.8); MEAN CELL VOLUME 91.1 FL (80.0-100.0); MEAN CORPUSCULAR HEMOGLOBIN 29.2 PG (27.0-34.0); MEAN CORPUSCULAR HGB CONC 32.1 % (32.0-36.0); MONO % 9.9 % (0.0-8.0); PLATELET COUNT 134 TH/MM3 (150-450); RED BLOOD COUNT 2.61 MIL/MM3 (4.50-5.90); RED CELL DISTRIBUTION WIDTH 18.8 % (11.6-17.2); WHITE BLOOD COUNT 12.6 TH/MM3 (4.0-11.0)
[2016-01-23 04:42] LABS: HEMO FLAGS AUTO DIFF
[2016-01-23 04:57] LABS: BICARBONATE 23.8 MEQ/L (21.0-32.0); MAGNESIUM 1.8 MG/DL (1.5-2.5); POTASSIUM 4.2 MEQ/L (3.5-5.1)
[2016-01-23] MEDS: INSULIN ASPART SUPPLEMENTAL SCALE SQ SCH ×4 (06:00→17:00)
[2016-01-23] MEDS: PANTOPRAZOLE SODIUM 40 MG VIAL IV PUSH SCH ×2 (06:34→17:00)
[2016-01-23] MEDS: CHLORHEXIDINE 0.12% (ORAL KIT) 15 ML CUP MT SCH ×2 (08:00→20:00)
[2016-01-23] MEDS: predniSONE 10 MG TAB NG SCH (08:30)
[2016-01-23] MEDS: MULTIVITAMINS LIQUID 5 ML UDC TUBE SCH (08:30)
[2016-01-23] MEDS: FERROUS SULFATE 300 MG /5ML UDC TUBE SCH ×2 (08:30→21:00)
[2016-01-23] MEDS: SODIUM CHLORIDE 0.9% FLUSH 5 ML FLUSH IVF PRN (08:32)
[2016-01-23 08:39] LABS: BANDS 10 % (0-6); BASOPHILS 1 % (0-2); EOSINOPHILS 1 % (0-4); METAMYELOCYTES 2 % (0-1); PLATELET ESTIMATE SMEAR LOW (NORMAL); PLATELET MORPHOLOGY NORMAL (NORMAL); POLYS (SEG NEUTROPHILS) 75 % (16-70); SCAN/DIFF FINAL DIFF MANUAL; STOMATOCYTES 1+ (NORMAL); WBC DIFF SAMPLE 100
[2016-01-23] MEDS: NEOMYCIN/POLYMYXIN/BACITRACIN OINT 15 GM TUBE TOPICAL SCH ×2 (09:00→21:00)
[2016-01-23] MEDS: POVIDONE IODINE 10% OINT 30 GM TUBE TOPICAL SCH (09:00)
--- NOTE | 2016-01-23 09:42 | RADRPT ---
EXAM DATE/TIME: 01/23/2016 09:05 This report includes an Addendum and supersedes previous reports for this exam. [facility] COMPARISON: CT ABDOMEN & PELVIS W/O CONTRAST, January 06, 2016, 22:07. INDICATIONS : Dark sludge draining from BEV drain. ORAL CONTRAST: No oral contrast ingested. RADIATION DOSE: 13.85 CTDIvol (mGy) MEDICAL HISTORY : Hepatitis C. Cardiovascular disease Hypertension. SURGICAL HISTORY : Splenectomy. ENCOUNTER: Initial ACUITY: 1 day PAIN SCALE: 2/10 LOCATION: Abdomen. TECHNIQUE: Volumetric scanning of the abdomen and pelvis was performed. Using automated exposure control and ad justment of the mA and/or kV according to patient size, radiation dose was kept as low as reasonably achievable to obtain optimal diagnostic quality images. FINDINGS: Bilateral pleural effusions are again noted slightly larger on the right than the left. There is left lower lobe basilar consolidation. The large "mass in the upper quadrant on the prior study is r esolved. There are is a ostomy in the right lower quadrant and there are 2 tubes within the abdomen o ne in the left abdomen extending into the subdiaphragmatic region and a drain in the left upper quadr ant and the other at a jejunostomy. These are unchanged. 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 There is a stable 5 cm rounded density in the left upper quadrant post erior laterally which may represent residual organized mass sub-diaphragmatic fluid collection. CONCLUSION: Relative to the prior study the marked distention of the stomach is reduced. There is a persistent 5 cm left upper quadrant sub-diaphragmatic fluid collection and drain in the left upper quadrant. 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 Jejunostomy is in place and ostomy is noted in the right lower abdomen. No fr ee fluid or free air is appreciated and there is no evidence of obstruction. Bilateral pleural effusions persists small but slightl y larger on the right with left lower lobe consolidation. Jared Medina MD on January 23, 2016 at 9:32 Board Certified Radiologist. This report was verified electronically. ADDENDUM: I have reviewed the images with respect to her request made for left subdiaphragmatic drainage of a f luid collection. No fluid collection is observed within the left upper quadrant. There is residual sp lenic tissue that measures 5 cm in diameter with Hounsfield units 62. The stomach fundus extends up i nto the subdiaphragmatic location. No subdiaphragmatic fluid collection is observed. Surgical drains are noted. Osmar Chavez Jr., MD on January 24, 2016 at 11:33 Board Certified Radiologist. This report was verified electronically.
[2016-01-23] MEDS ORDERED: hydrALAZINE HCL 20 MG/ML VIAL IV ONE (10:45)
[2016-01-23] MEDS: FLUCONAZOLE 400 MG PREMIX BAG 200 ML IV SCH (11:03)
[2016-01-23] MEDS: SILVER SULFADIAZINE 1% CR 400 GM JAR TOPICAL SCH (12:30)
--- NOTE | 2016-01-23 13:26 | RADRPT ---
EXAM DATE/TIME: 01/23/2016 11:29 [facility] COMPARISON: No previous studies available for comparison. INDICATIONS : Left upper extremity swelling. MEDICAL HISTORY : Hernia, hiatal. Osteoarthritis. Rheumatoid arthritis. Left leg numbness. Migraines. Sleep apnea. Dysp александр. Melena. Osteopenia. Gout. Hepatitis C. SURGICAL HISTORY : Tonsillectomy. Inguinal hernia repair. Splenectomy. Back surgery. Left knee ACL. ORIF left hip. Endo crine surgery, lymph nodes. Blood transfusions. ENCOUNTER: Initial ACUITY: 1 day PAIN SCORE: 0/10 LOCATION: Left arm. FINDINGS: There is spontaneous flow documented in the brachial, basilic, cephalic, axillary, and subclavian vei ns. The vessels are compressible and augmentation response is documented. No filling defects are se en. The flow is phasic with respiration. Direction of flow in the jugular vein is caudal. CONCLUSION: Normal examination. No evidence DVT Jared Medina MD on January 23, 2016 at 13:24 Board Certified Radiologist. This report was verified electronically.
[2016-01-23] MEDS ORDERED: ENOXAPARIN SODIUM 40 MG/0.4 ML SYRINGE SQ SCH (14:45)
--- NOTE | 2016-01-23 14:48 | HHI.CCPN ---
Subjective Remarks/Hospital Course 55-year-old male brought by EMS with altered mental status. He has been confused for 2 days but this morning has been the worst. He has history of chronic opiate medications including methadone and morphine that he takes for pain management and hence they gave him Narcan IV which brought the GCS up to 13. The blood glucose was 74. He has open wounds from his right upper and bilateral lower extremities. He has history of hepatitis C. Last week he was pealing and eating shrimps. Bedside blood sugar was 76 in the ER. He was tachycardic in 1 teens and was intubated in the ED for airway protection. Admitted to ICU with sepsis due to Staph Aureus hand infection and E. Coli bacteriemia. 12/05 Patient remains sedated with Fentanyl and intubated. On Levophed 3 mics, Vasopressin 0.03 mics and Bicarb drip. T:99.8 TF placed on hold OGT to LIWS last night - gastric drainage 525ml overnight. 12/06 Patient is sedated with Fentanyl and intubated, On Levophed 3 mics, off vasopressin. Gastric output 400ml in 24 hrs. KUB abdomen yesterday mildly distended colon otherwise non specific KUB. 12/07 Patient is off sedation remains intubated tolerated CPAP for most day yesterday. Afebrile. on no drips, tolerating tube feeds. 12/08 Patient went to OR yesterday for debridement and irrigation of right forearm and wound VAC placement. Given 2U PRBC and 2u PLT yesterday and currently receiving 1of 2 u additional PRBC. Hgb 7.7, PLT 43 this morning. Patient also started on pressors now on Levophed 10 mics. Vasopressin 0.04 mics. On no sedation. 12/09 Patient remains intubated off pressors, Afebrile. Tolerating tube feeds. Afebrile. 12/10 Patient is sedated with Fentanyl and intubated. Awake and follows commands off sedation. Afebrile. 12/11 Patient had ?SVT overnight given Lopressor 2.5mg IV x1, Remains intubated and sedated with Fentanyl. Afebrile. Tolerating TF. 12/12 Patient spoked fever last night with T: 101.5, sedated with Fentanyl and intubated. 12/13 Patient had an episode of desaturation overnight required increase FIO2/ PEE now on ACV with RR 14, TV 550, PEEP: 12, FIO2 60% with sats 100% CT chest performed overnight showed b/l consolidation and small pleural effusion. Had T: 100.0 last night. 12/14 Tolerating PS 15/CPAP 10 FiO2 40% with rSBI 38, weaning. . Awake and alert , following commands. Hypotensive overnight and levophed restarted up to 12 mcg/ min. Nurse has been weaning throughout the day. Suspected adrenal insufficiency as he was on prednisone as outpatient for gout and has not been on stress dose steroids. Given decadron. 12/15 Transfused 1 unit PRBC for Hgb 7.0 yesterday, 1 unit PRBC for Hgb 6.6 today and now Hgb 8.3. Does not clinically have e/o active GI bleeding and wound vac output nonbloody. Stool 1500 output, C diff negative. No abdominal pain. Remains Awake and alert, remained on CPAP 10/5 last night and is now tolerating CPAP 5/5. 12/16: Extubated yesterday tolerating well. Breathing comfortably. Able to follow commands. UO 1.8 L in 24 hours. Na slightly increased to 153. 12/17: Significantly worse this AM. WBC up to 28 from 16. Hgb 5.2 from 7.9. tachycardic. pale this AM. states he feels tired. Continues on BiPAP. Plan for debridement of his arms today. LIJ CVL does not have any signs of overt infection. 12/18: Blood cell count continues to rise today to 30 from 28. Required 1 unit of blood for hemoglobin of 6.6 which improved to 7.7 this morning. However, patient remains tachycardic in the 120s and significantly pale. CT abdomen and pelvis ordered and pending. Tachypneic with respiratory rate in the 30s. Only small amount of dark tarry stool yesterday with approximately 300 cc of stool output. C. difficile toxin negative 3. After discussion with infectious disease, restart vancomycin, cefepime, Flagyl, micafungin. Horn cultures are pending. Per discussion with GI, will not scope as endoscopy is high risk given his tenuous respiratory status this point. Slightly worse hypernatremia as well as worsening acute kidney injury this morning. 12/19: POD 1 s/p ex-lap, washout for perforated ascending colon with extended right hemicolectomy, primary ileocolic anastamosis, open abdomen, septic shock, acute hypoxic and hypercarbic respiratory failure. Significantly critically ill overnight: required 6L ivf resuscitation, 1 unit prbc, norepinephrine, vasopressin, stress dose hydrocortisone. This morning, remains on high-dose vasopressors. still has large volume ivf requirement. Significant SIRS response. Vent requirements increasing with all this volume resuscitation, PEEP up to 10. He remains critically ill, and although I do believe we have surgical source control, I anticipate he will continue to clinically decline before he starts to make improvements. 12/20: Off pressors. follows commands on sedation holiday. +11L over last 3 days during acute illness, +22L since admission. We are going to have to get some of this volume back before we are able to close him given his severe anasarca. 12/21: Taken back to the OR yesterday afternoon for washout and completion colectomy. Postoperatively was significantly under resuscitated as well as had ongoing active oozing. Patient was coagulopathy. The patient was in distributive and hemorrhagic shock. The patient was given multiple units of blood products overnight. Patient was thrombocytopenic, hypofibrinogenemic, coagulopathic. Given significant volume of blood product resuscitation: 24h blood products: 13 prbc 8 ffp 2 plt 1 10-pack cryo This morning continues to have significant amount of bright red output out of his BEV and wound VAC, approximately 500 cc an hour out of his wound VAC, and approximately 75 an mils every 10 minutes out of a BEV. I discussed with surgery and we will correct his coagulopathy and plan to go back to the OR for exploration early this afternoon. 12/22: Clinically starting to improve hemodynamically. off vasopressors. Net+ 26L. CVP rising to 14. UOP adequate. Hgb 7 this AM. 12/23 Seen postop. Hypertensive, BP improved with additional pain medicine. Remains net positive but urine output excellent 3L in 24 hours. Remains on Lasix gtt. went to OR today status post wound VAC change and partial closure 12/24: Fascia was closed yesterday. Wound Vac in place. Remains sedated. -2L negative balance, but with increasing BUN/creat. Discontinue Bumex infusion, start scheduled Bumex 2 mg IV every 12 with IV albumin. 12/25: Overnight became hypotensive requiring Levophed to be restarted. Hemoglobin dropped to 4.1. Noted to have bloody drainage from G-tube and dorsal ileostomy with black stool output 12/26: s/p EGD yesterday-2 gastric ulcers bleeding, stomach a significant part had decreased discoloration indicating probable ischemia. s/p epi injection and cauterization. Continues to have coffee ground G tube output, black tarry Ileostomy output. Hemoglobin down to 6.4 getting 2 units of PRBC. GI recent recommending intervention radiology consult. 12/27: For trach today. Meds ordered. Hgb decline consistent with recent transfusions and senescent cells. 12/28: Trach clean, dry. Start SBTs. Check prealbumin. Continue TPN. 12/29: Looks in direction of voice. I have not seen more purposeful reactions. Line > 12 days old, replace today. Prealbumin 20 - good response to TPN. 12/30: Remains vented, encephalopathic, puss like drainage from left hand, WBC increased 01/01: no significant changes. continues to remain critically ill with minimal improvements over the last week. abdomen closed. still total body volume overloaded. 01/02: more awake today than yesterday. continues to be critically ill with minimal improvements overall. need to look towards placement. -900 yesterday. 01/03: up in chair yesterday. tolerated short run of SBT 15/5/40%. net euvolemic. wbc downtrending. 01/04: wbc slightly uptrended 33 from 30, more acidotic on BMP (14 from 20). Also spiking fevers to 102.3 despite tylenol. continues on broad spectrum abx. yesterday's cxr had what may be a new LLL infiltrate. today, though, he is following commands and more awake and alert. 01/05: LLL pna clinically and based on bronch. CT c/a/p done last night without any significant intra-abdominal change. small left pleural effusion which appears simple in nature, and LLL consolidation. ID broadened abx. today , wbc downtrending. culture data pending. Hgb 7 this AM. 01/06: Underwent exploratory laparotomy last night with findings of bleeding gastric ulcer which was oversewn by Dr. Verdin abdomen left open with wound VAC in place. Received 3 units PRBCs overnight. Remains on Wesley-Synephrine drip this morning for hypotension. Remains sedated, on mechanical ventilation. 01/07: Remains sedated, on mechanical ventilation. For abdominal incision site closure today. Significant positive fluid balance over the last 2 days. Off pressors currently. Lasix to mobilize fluid. 01/08: Remains sedated, on mechanical ventilation via tracheostomy. Underwent abdominal incision site closure this morning. Remains off pressors. Anasarca noted. Blood cultures from 01/04 growing Nava parapsilosis. 01/09: Drowsy/sedated, arousable, on mechanical ventilation via tracheostomy. TPN started yesterday. To be started on J-tube feeds per discussion with surgery 01/10: Sedated, arousable, on mechanical ventilation via tracheostomy. Remains on TPN. J-tube feeds being started today. 01/11: Was on T piece yesterday and rested on C Pap overnight. On TPN. Advanced J-tube feeds to 20 cc an hour today. Attempt T piece as tolerated. 01/12: Awake, tracks with his eyes. On C Pap overnight. Tolerated T piece during daytime yesterday. 01/13: Awake and alert. Was on T piece all day yesterday and was placed back on C Pap at 1:45 AM this morning. Does not appear to be in any acute distress. Tolerating J-tube feeds at 20 cc per hour. 01/14: Drowsy, easily arousable. Was on T piece all day yesterday and rested on C Pap at night. Tolerating J-tube feeds at 40 cc an hour with goal of 60 cc per hour. On TPN which will be discontinued after current bag. EBV drain with cloudy drainage. 01/15 Was placed back on ACV yesterday around 9 am due to tachypnea and remained on ACV overnight. Now on CPAP 11/20 and tolerating. BEV in lower abdomen had purulent output yesterday but RN states looks better today. Tolerating tube feeds, stool in ostomy. Off TPN. Removing CVL. 01/16 Hgb 6.6 on CBC this morning, lab draw, repeat pending. Tachycardia persists but otherwise no hemodynamic change. The NGT output yesterday was bilious, today brown/slight coffee grounds but mostly clear. No blood from BEV' s.Has been tolerating jejunal tube feeds, placed on hold for now. Has been tolerating CPAP 10/5 with RSBI 10s. GI/General surgery updated. 01/17 Hemoglobin 8.0. EGD performed yesterday showing gastric ulcers with no active bleeding. Abdominal wound dressing change today. Plan to begin trickle feeds today per general surgery. 01/18 Hgb 7.3. Tolerating trickle feeds that were resumed per general surgery.Tolerated Tpiece 2 hours yesterday. On CPAP 8/5 overnight. Now on Tpiece about 1 hour and doing well. Will continue intermittent Tpiece trials throughout the day with rest on CPAP in between. Watching off abx; cefepime discontinued 01/16. Remains on fluconazole for candidemia. Subjective: 01/19 Trach developed cuff leak overnight. I exchanged Trach at bedside this morning. Tolerated Tpiece 2 hours, now resting on CPAP 8/5. Doing 2 piece trials up to 2 hours as tolerated tid and then plan to start extending duration of Tpiece trials from there. Tolerating tube feeds. 01/20 Tmax 99.2. Continued Protonix twice a day, noted melena continues in ostomy bag. Patient's T piece trials extended to 4 hours today, maximum toleration. Repeat blood cultures 01/19 still pending, WBC count still elevated. Wound care to be consulted for clarification of all specific dressing changes noted new reddened skin breakdown area on sacrum ,and eschar noted several areas left upper extremity all skin margins of wound noted erythematous. continuous conveyor screen drier Mattie Yost in attendance of dressing change CHALO, noted no change in left upper extremity appearance in the last 30 days per her assessment.Requested Plastic Surgery reassess LUE and wound care protocol.Patient continues to tolerate tube feeds no residual noted. 01/21 Tmax 99.0. Overnight the patient continued to have episodes of tachycardia , some heart rate 130, appear non-pain related,requiring PRN dosing of antihypertensive meds. Blood cultures returned this morning gram positive cocci. Plan for CT of the abdomen and pelvis 01/22 discussed with and per general surgery.. Discussion of wounds with Dr. Pedro, plastic surgery yesterday, plans for reevaluation by plastic surgery and definitive/ instructions regarding wound care plan for today, of focus left upper extremity. 01/22 Afebrile. Overnight , HR remains in the low 100s-120. Systolic blood pressure remained above 160 early a.m., despite increase in frequency of metoprolol. Plan for increase in dosage of metoprolol. The patient underwent CT of the abdomen and pelvis early this a.m. showing persistent 5 cm left upper quadrant subdiaphragmatic fluid collection. Neurosurgery aware with plans of drainage per IR. Gastroenterology following, noted ostomy output color, melena resolved recommended resumption of anticoagulation prophylactically ,but will hold with plans of IR drainage of fluid collection, per general surgery at this time. Objective Vital Signs Date Time Temp Pulse Resp B/P Pulse Ox O2 Delivery O2 Flow Rate FiO2 01/23/16 13:47 16 01/23/16 12:00 160 01/23/16 12:00 98.6 178/84 100 01/23/16 12:00 40 01/23/16 07:46 T-piece 01/20/16 16:45 6.00 Intake and Output 01/22/16 01/22/16 01/22/16 07:59 15:59 23:59 Intake Total 661 ml 933 ml 525 ml Output Total 860 ml 860 ml 655 ml Balance -199 ml 73 ml -130 ml Result Diagram: 01/23/16 0404 01/23/16 0404 Imaging Last Impressions Abdomen/Pelvis CT 01/23/16 0800 Signed Impressions: Service Date/Time: Saturday, January 23, 2016 09:05 - CONCLUSION: Relative to the prior study the marked distention of the stomach is reduced. There is a persistent 5 cm left upper quadrant sub-diaphragmatic fluid collection and drain in the left upper quadrant. Patient is post splenectomy. Jejunostomy is in place and ostomy is noted in the right lower abdomen. No free fluid or free air is appreciated and there is no evidence of obstruction. Bilateral pleural effusions persists small but slightly larger on the right with left lower lobe consolidation. Jared Medina MD Upper Extremity Ultrasound 01/23/16599 Signed Impressions: Service Date/Time: Saturday, January 23, 2016 11:29 - CONCLUSION: Normal examination. No evidence DVT Jared Medina MD Chest X-Ray 01/21/16599 Signed Impressions: Service Date/Time: Thursday, January 21, 2016 05:12 - CONCLUSION: 1. Cardiomegaly and left retrocardiac/basilar density. 2. Slight interstitial prominence. Wojciech Lockhart MD Chest CT 01/05/16 0000 Signed Impressions: Service Date/Time: Tuesday, January 05, 2016 23:15 - CONCLUSION: 1. Persistent left lower lobar consolidation. Improved consolidative infiltrates in the right lower lung. 2. Interval increase size bilateral pleural effusions , left greater than right. Osmar Alegria MD Celiac/Hepatic Arteriogram 12/27/15 0000 Signed Impressions: Service Date/Time: December 13:41 - CONCLUSION: 1. No active GI bleed identified. Robert Mckinney MD Abdomen X-Ray 12/18/15 0000 Signed Impressions: Service Date/Time: Friday, December 18, 2015 16:05 - CONCLUSION: Feeding tube tip is at the gastric antrum. Arnaldo Elias MD Head CT 12/02/15 1013 Signed Impressions: Service Date/Time: Wednesday, December 02, 2015 11:00 - CONCLUSION: 1. No intracranial abnormality is seen. 2. Air-fluid level in the right maxillary sinus. Arnaldo Reyes MD Last 48 hours Impressions Chest X-Ray 01/07/16 0000 Signed Impressions: Service Date/Time: Thursday, January 07, 2016 04:23 - CONCLUSION: Worsening consolidation or atelectasis at the left mid and lower lung. Some degree of left effusion may also be contributing to this. Arnaldo Reyes MD Chest X-Ray 01/06/16 0000 Signed Impressions: Service Date/Time: Wednesday, January 06, 2016 19:46 - CONCLUSION: 1. Basilar airspace disease improved from January 04. Tracheostomy and right central line in satisfactory position. Nomi Falcon MD Abdomen/Pelvis CT 01/06/16 0000 Signed Impressions: Service Date/Time: Wednesday, January 06, 2016 22:07 - CONCLUSION: 1. Over the last day there is development of a large mass in the left upper quadrant measuring up to 18 x 13 cm which appears to be associated with the stomach. The mass is characterized by somewhat concentric areas of decreased and increased attenuation with multiple locules of air. Primary differential diagnosis is hemorrhage into the gastric wall with gastric pneumatosis and possibly gastric ischemia. Gastrostomy is again noted anteriorly. 2. Remainder the exam is relatively stable with drainage tube left upper quadrant, splenectomy, bilateral effusions, feeding jejunostomy and drain within the pelvis. There is also diffuse anasarca and nonobstructing renal calculi. Nomi Falcon MD Last Impressions Chest X-Ray 12/17/15 0600 Signed Impressions: Service Date/Time: Thursday, December 17, 2015 03:25 - CONCLUSION: Persistent left lower lobe consolidation. Osmar Alegria MD Chest CT 12/14/15 0000 Signed Impressions: Service Date/Time: Monday, December 14, 2015 06:12 - CONCLUSION: 1. Cardiomegaly with bilateral consolidation, likely CHF. Pneumonia cannot be excluded. 2. Small right pleural effusion. Wojciech Lockhart MD Abdomen X-Ray 12/06/15 0000 Signed Impressions: Service Date/Time: November 09:53 - CONCLUSION: Nonspecific KUB. Air is seen within a mildly distended colon but contrast is clearly seen in the rectum. Arnaldo Reyes MD Abdomen/Pelvis CT 12/04/15 0000 Signed Impressions: Service Date/Time: Friday, December 04, 2015 16:24 - CONCLUSION: 1. Mildly distended small bowel in the mid and lower abdomen. Contrast is clearly seen extending into the distal small bowel and ascending colon so a complete obstruction is not seen. A transition point is not seen. This pattern likely represents an ileus versus a partial obstruction. 2. Multiple nonobstructing renal stones. 3. Abnormal appearance of the spleen which appears to represent a splenule. It could be correlated if the patient has had either primary splenic removal or splenic injury and this is what is either left of the spleen or a developing splenule. This is likely of no significance. 4. Mild ascites. 5. Increased density within the gallbladder representing either tumefactive sludge or noncalcified stones. 6. Mild bilateral pleural effusions with prominent areas of lower lobe atelectasis or consolidation at the bases bilaterally. 7. Subacute to chronic bilateral rib fractures and multiple compression fractures in the lower thoracic and lumbar spine as described above. The patient does have a prior CT examination from 08/26/2014. All the compression deformities described above are new when compared to that scan. Arnaldo Reyes MD Head CT 12/02/15 1013 Signed Impressions: Service Date/Time: Wednesday, December 02, 2015 11:00 - CONCLUSION: 1. No intracranial abnormality is seen. 2. Air-fluid level in the right maxillary sinus. Arnaldo Reyes MD Objective Remarks Jevity 1.5 @ 60 mL per hour GENERAL: Middle-aged chronically critically ill-appearing male, lying in bed, on Tpiece via trach. HEENT: NCAT. mucous membranes moist. NECK: trach in place. RESPIRATORY: On Tpiece, . Breath sounds present bilaterally, scattered rhonchi , diminished bibasilar, no wheezing . CARDIOVASCULAR: regular, tachycardic ~110-130. Sinus tach on monitor. No murmurs rubs or gallops. GASTROINTESTINAL: J tube in place with tube feeds running . Gauze dressings in place inferior aspect of midline incision. L side BEV drain in mid lower abdomen with with cloudy/darker drainage. R BEV mid lower abdomen with serous drainage. Ostomy with soft ,melena noted. Normoactive bowel sounds. MUSCULOSKELETAL: Generalized anasarca, doughy pitting edema 2+ bilateral feet. Multiple open wounds in the lower extremity, without exudate (observed on 01/15 , today have been wrapped in gauze) RUE - with wound vac removed right arm with mostly serous, output. L upper extremity gauze dressing in place; L upper extremity NEURO: Awake, opens eyes spontaneously, makes eye contact and smiles. Moves bilateral feet to commands. 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 - Tylenol 650mg per tube q6h discontinued 01/15 - Dilaudid 2mg Iv q4h prn for breakthrough pain. - oxycodone 20mg per tube q4h scheduled Respiratory Acute respiratory failure-extubated 12/16/15, reintubated for surgery 12/18 Acute hypoxic and hypercarbic respiratory failure Acute healthcare associated pneumonia- resolved NIGEL on home CPAP - Perc Tracheostomy 12/27 (Dr. Miller). Trach exchanged 8.0 shiley with cuff on 01/19. - Vent bundle. Head of bed at 30 degrees. Duoneb q6h and prn. - Tpiece trials extended duration of Tpiece trials to 4 hours on then return to CPAP 4 hrs,( 4 hrs TID). Better tolerated today. --CXR 01/15 - L pleural effusion. 01/21 Left basilar density -CT 01/22 small B/L pleural effusions L> R -. Continue fluid mobilization with lasix. CV Hemorrhagic shock- resolved Septic Shock- resolved Volume overload Hypertension Tachycardia - Maintain MAP > 65 mmHg. - Cortisol level 14 on 12/14 - Stopped stress dose hydrocortisone on 01/12 and started prednisone 10 mg daily 01/13. If hemodynamics changing or if returns to OR would need stress dose hydrocortisone again. - Echo 12/07 EF 65-70%, grade I diastolic dysfunction. - Metoprolol 12.5 per tube q8 hours , will increase dose to 25 every 8 hours . FENRenal: DEIRDRE Hypernatremia (resolved) Hypophosphatemia Anasarca, third spacing. Severe hypoalbuminemia - Hypernatremia improved Following D5 @ 50 milliliters per hour, now off. Free water flush 100 q6 - Today will give Lasix 40 mg IV following 1 unit PRBC and give additional Lasix 40 mg IV at 0200 accompanied by albumin 25 gram. - FE urea never resulted, will check FEna before lasix. -Creatinine. Urine eos negative. Off vancomycin. Avoid nephrotoxins. -Monitor BMP -Multivitamin q/day GI Acute GIB, hemorrhagic shock (resolved, now with recurrent anemia but not shock) Perforated right colon with colitis s/p ex-lap, extended right hemicolectomy with primary ileocolic anastamosis, washout, open abdomen (12/18) s/p Ex lap 01/05 for bleeding gastric ulcer Acute protein calorie malnutrition- severe Chronic hepatitis C s/p interferon/ribavirin years ago. Liver biopsy 04/14/08 Melena-resolved 01/22 Severe protein calorie malnutrition - EGD 12/26/15 showed 2 large gastric ulcers with active bleeding status post epinephrine infusion and cauterization - OR on 12/24 with Removal of VAC, washout, pancreatic drain and pelvic drain placement, gastrostomy, feeding jejunostomy and closure of abdomen with application of VAC device in the subcutaneous tissue. -to OR 01/05 with GI bleeding and hemorrhagic shock. Had bleeding gastric ulcer and pneumatosis of stomach. Underwent gastrotomy with ligation of gastric ulcer , lysis of adhesions, wound VAC placement -01/16 Endoscopy showed - ulcers at antrum and cardia without stigmata of bleeding and no exposed vessel. Granulation tissue at suture line without bleeding. Small ulceration there also without bleeding. Duodenum normal. At low risk for UGI bleeding per GI, okay for anticoagulation from their point of view. Avoid NSAIDS/ASA. NGT removed 01/16, to remain out per GI; Dr. Sanchez. Repeat EGD in 2 months ( Mar)per GI recs. -Prior TPN stopped 01/01. Again on TPN 01/08-01/14. -Continue Protonix 40 g IV q12h -Continue Jevity 1.5 goal rate at 60 mL per hour per nutrition/ GI recommendations. -CT abdomen pelvis without contrast revealed persistent 5 cm left upper quadrant subdiaphragmatic fluid collection, per general surgery plan for IR drainage -Albumin 1.1 will begin Beneprotein 1 packet BID followed by flush of 30 cc H2O with each dose. -Follow up with general surgery regarding scheduling IR drainage of fluid collection Heme: Acute Anemia secondary to acute blood loss Thrombocytopenia Hypofibrinogenemia secondary to consumption and acute blood loss Coagulopathy secondary to consumption and acute blood loss --monitor CBC --Hep PLT ab negative on 12/03 - Ferrous Sulfate 300mg bid - transfused 3 units PRBCs 01/05- -Hgb of 6.6 on 01/16 was a lab error. The hemoglobin was 8.2 on recheck without any transfusion provided. -Hgb continues trickle down. Will transfuse 1 unit PRBC today in view of Hgb 7.1 and tachycardia increased to 120s (baseline is 104-110) ID Severe sepsis Necrotizing Fascitis - MSSA on wound culture 12/07. Ecoli bacteremia 12/01 MSSA bacteremia 12/05. Cleared on f/u blood culture 12/07, 12/12. Candidemia (blood culture 01/04 with Nava parapsilosis) Sepsis of Intra-abdominal origin. C. difficile toxic megacolon (based on pathology C diff vs ischemia, C diff test negative) Bacteremia- gram positive cocci 01/21 --Debridement 12/01 p.m at bedside by Dr Pedro and Dr. Hartmann --R hand, forearm and olecranon bursa I and D and Wound vac 12/07 Dr Chavez. -- ABX per ID: Now on Fluconazole alone 01/09 #11 Previously: cefepime 12/17-01/16,flagyl IV 12/17-01/16 , Vancomycin 01/04-01/16 ( trough 20 on 01/15). Micafungin stopped per ID 01/08. Amphotericin B started by ID on 01/08 and stopped 01/09. Nava parapsilosis in blood culture from 01/04 most likely from an intra- abdominal source(central line was changed on 01/04). Last set of blood cultures have been negative. BEV drain with cloudy drainage 01/14, now clear serous. General surgery aware and following. Noted WBC 18 from , if continues uptrend or if evidence of recurrent sepsis off abx, will discuss repeat CT abd/pelvis with surgery. Seen by Dr. Wu 01/13 and no evidence of endogenous fungal endophthalmitis ID following, Dr. Becerra 01/21 blood culture -coagulase-negative staph 01/22 noted oral thrush- will begin Nystatin 5 ml QID Wound care following for leg wounds. -Plastic Surgery requested for reassessment of LUE and skin care protocol for left arm 01/20, follow-up recommendations --12/17 blood cultures: NGTD 12/17 central line culture: NGTD 12/17 urine cultures: NGTD 12/17 sputum cultures: NGTD C. difficile toxin 12/17: Negative (3rd negative toxin screen) -01/04 Blood culture with nava parapsilosis 01/04: horn culture, bronch with BAL, 01/04: CT chest/abd/pelvis without contrast: LLL consolidation, otherwise unchanged. 01/04: clinically LLL VAP. 01/08 Blood cultures: no growth 01/09 blood culture peripheral - NGTD 01/12 sputum cutlure - neg 01/12 - urine culture NGTD. 01/21- Bld culture-Coag negative staph 01/22- Oral Thrush Endocrine: Hyperglycemia of Critical Illness Diabetes - off Insulin drip - Levemir BID on hold. - On low-dose insulin sliding scale with bedside glucose every 6 hours, not requiring coverage. Glucose at 104 - Prednisone 10mg po daily since 01/13. Previously was on prednisone as an outpatient. Has been on hydrocortisone intermittently when he has gone to the OR or decompensated. MSK: -Daily functional maintenance -US LUTomeka 01/22- negative for DVT -Multi-Podis soft boots prevent foot drop Prophylaxis: GI Prophylaxis: -- Protonix IV BID DVT Prophylaxis: - SCDs Subcutaneous heparin on hold since 01/05. Per gastroenterology, okay to resume heparin but will hold for pending IR drainage of abdominal fluid collection. ACCESS: --PIV. Patient needs PICC for ongoing meds/labs. Discussed with ID, will place if followup blood cultures negative from 01/19, awaiting results. Right IJ TLC 01/04-01/15 #12. PT/OT. OOB. Telephoned Ms. Clemencia Smith and updated her with information .Discussed with EXECUTIVE OFFICER at bedside. This patient remains critically ill with one or more organ systems which are or may become a threat to life. I have spent in excess of 44 minutes discontinuously in the care and management of this patient. This time is exclusive of procedures, and includes, but is not limited to, evaluation of the patient, review of the medical record, discussions with family, consultants, nursing staff, or respiratory therapy, and documentation in the medical record. Physician Fe Poole Problem Qualifiers (1) Respiratory failure: Qualified Code: J96.00 - Acute respiratory failure, unspecified whether with hypoxia or hypercapnia (2) Altered mental status: Qualified Code: R41.0 - Delirium (3) Sepsis: Qualified Code: A41.9 - Sepsis, due to unspecified organism Fe Poole MD Jan 23, 2016 14:48
[2016-01-23] MEDS ORDERED: METOPROLOL TARTRATE 5 MG/5 ML VIAL IV PUSH ONE (15:15)
[2016-01-23] MEDS: NYSTATIN SUSP 500,000 U/5 ML CUP SWISH-SPIT SCH ×2 (17:00→21:00)
--- NOTE | 2016-01-23 17:18 | HHI.HCPN ---
Reason for visit a. To assist with evaluation and management of symptoms including: pain, encephalopathy, malnutrition b. To assist medical decision maker(s) with: better understanding of current medical conditions; weighing benefits/burdens of medical treatment options; making medical treatment decisions. . Subjective/Interval History Patient seen and assessed in room 1317. Patient sitting up in bed, mouthing words. Having continued tachycardia and tachypnea. Afebrile. WBC trending downward at 12.6. Follow chest x-ray on 01/21/16 showing cardiomegaly with left retrocardiac/basilar density, slight interstitial prominence. 01/23/16 CT abdomen: Relative to prior study in this marked distention of the stomach is reduced, there is a persistent 5 cm left upper quadrant subdiaphragmatic fluid collection and drain in the left upper quadrant; patient is post splenectomy; jejunostomy is in place and ostomy is noted in the right lower abdomen; no free fluid or free air is appreciated and there is no evidence of obstruction; bilateral pleural effusions persist small but slightly larger on the right with left lower lobe consolidation. Ultrasound of the arm shows no evidence DVT. Family/friend interactions Spoke to patient's daughter via telephone to discuss/explain CT abdomen/pelvis results. Advance Directives Living Will: Never completed Health Care Surrogate: Never completed Durable Power of Zoology Technical Officer: Never completed Advance Directive Specifics Health Care Surrogate(s): There is no designated health care surrogate. Per [place] statutes, in the absence of written advanced directives healthcare proxy falls to the patient's , Gopi Smith. . Documented care wishes: None available , Objective Vital Signs Date Time Temp Pulse Resp B/P Pulse Ox O2 Delivery O2 Flow Rate FiO2 01/23/16 16:00 28 01/23/16 16:00 108 01/23/16 16:00 97.4 108 24 180/90 99 01/23/16 15:48 100 T-piece 40 01/23/16 14:00 104 01/23/16 13:47 16 01/23/16 13:07 14 01/23/16 12:00 160 01/23/16 12:00 98.6 160 23 178/84 100 01/23/16 12:00 40 01/23/16 11:30 40 01/23/16 11:22 100 40 01/23/16 10:00 118 01/23/16 08:45 94 35 01/23/16 08:00 96 01/23/16 08:00 28 01/23/16 08:00 98.2 104 27 167/79 98 01/23/16 07:46 100 T-piece 40 01/23/16 06:00 106 01/23/16 04:00 100 40 01/23/16 04:00 98.4 104 22 150/74 99 01/23/16 04:00 104 01/23/16 04:00 40 01/23/16 02:00 89 01/23/16 01:28 100 40 01/23/16 00:00 40 01/23/16 00:00 100 01/23/16 00:00 98.4 100 22 149/80 100 01/22/16 22:00 104 01/22/16 22:00 100 40 01/22/16 20:00 40 01/22/16 20:00 98.3 104 20 141/79 99 01/22/16 20:00 102 01/22/16 19:41 100 40 01/22/16 18:00 120 Intake & Output 01/23/16 01/23/16 07:00 19:00 Intake Total 1165 ml 918 ml Output Total 1235 ml 700 ml Balance -70 ml 218 ml IV Total 161 ml 333 ml Tube Feeding 684 ml 460 ml Other 320 ml 125 ml Output Urine Total 1000 ml 625 ml Stool Total 70 ml Drainage Total 165 ml 75 ml Physical Exam CONSTITUTIONAL/GENERAL: This is a critically ill middle-aged male patient, tolerating CPAP TUBES/LINES/DRAINS: PIV 2, central line, BEV 2, ostomy, trach, Sandoval, wound VAC , NGT SKIN: Ecchymoses on upper extremities, multiple skin tears.Wounds scabbed on knuckles of right hand. HEAD: Atraumatic. Normocephalic. EYES: No injection or drainage. Fundi not examined. ENT: Hearing appears normal. Nose without bleeding or purulent drainage. NECK: Trachea midline. CARDIOVASCULAR: Regular rate and rhythm without murmurs, gallops, or rubs. No JVD. RESPIRATORY/CHEST: Tachypnea. Breath sounds diminished bilaterally. GASTROINTESTINAL: BEV drain x2 with serous/sedimentary output. Brown liquid stool mixed with solid in stool bag. GENITOURINARY: Without palpable bladder distension. Sandoval catheter in place. MUSCULOSKELETAL: Extremities without clubbing or cyanosis. Atrophy. NEUROLOGICAL: Awake and alert. Mouthing words, attempt to move upper extremities on command. PSYCHIATRIC: Unable to assess due to patient's current clinical condition. . Diagnostic Tests Laboratory Laboratory Tests Test 01/20/16 01/21/16 01/22/16 01/23/16 18:50 03:30 03:53 04:04 Urine Random Creatinine LESS THAN 13.0 MG/DL Urine Random Sodium 101 MEQ/L White Blood Count 18.0 TH/MM3 16.0 TH/MM3 12.6 TH/MM3 (4.0-11.0) (4.0-11.0) (4.0-11.0) Red Blood Count 2.97 MIL/MM3 2.74 MIL/MM3 2.61 MIL/MM3 (4.50-5.90) (4.50-5.90) (4.50-5.90) Hemoglobin 8.7 GM/DL 8.1 GM/DL 7.6 GM/DL (13.0-17.0) (13.0-17.0) (13.0-17.0) Hematocrit 26.9 % 24.7 % 23.8 % (39.0-51.0) (39.0-51.0) (39.0-51.0) Mean Corpuscular Volume 90.5 FL 89.9 FL 91.1 FL (80.0-100.0) (80.0-100.0) (80.0-100.0) Mean Corpuscular Hemoglobin 29.2 PG 29.4 PG 29.2 PG (27.0-34.0) (27.0-34.0) (27.0-34.0) Mean Corpuscular Hemoglobin 32.2 % 32.7 % 32.1 % Concent (32.0-36.0) (32.0-36.0) (32.0-36.0) Red Cell Distribution Width 18.2 % 18.2 % 18.8 % (11.6-17.2) (11.6-17.2) (11.6-17.2) Platelet Count 153 TH/MM3 144 TH/MM3 134 TH/MM3 (150-450) (150-450) (150-450) Mean Platelet Volume 10.3 FL 9.8 FL 9.8 FL (7.0-11.0) (7.0-11.0) (7.0-11.0) Neutrophils (%) (Auto) 78.5 % 78.4 % 76.0 % (16.0-70.0) (16.0-70.0) (16.0-70.0) Lymphocytes (%) (Auto) 10.0 % 10.5 % 12.3 % (9.0-44.0) (9.0-44.0) (9.0-44.0) Monocytes (%) (Auto) 10.6 % 9.7 % (0.0-8.0) 9.9 % (0.0-8.0) (0.0-8.0) Eosinophils (%) (Auto) 0.6 % (0.0-4.0) 1.0 % (0.0-4.0) 1.2 % (0.0-4.0) Basophils (%) (Auto) 0.3 % (0.0-2.0) 0.4 % (0.0-2.0) 0.6 % (0.0-2.0) Neutrophils # (Auto) 14.2 TH/MM3 12.5 TH/MM3 9.6 TH/MM3 (1.8-7.7) (1.8-7.7) (1.8-7.7) Lymphocytes # (Auto) 1.8 TH/MM3 1.7 TH/MM3 1.5 TH/MM3 (1.0-4.8) (1.0-4.8) (1.0-4.8) Monocytes # (Auto) 1.9 TH/MM3 1.6 TH/MM3 1.2 TH/MM3 (0-0.9) (0-0.9) (0-0.9) Eosinophils # (Auto) 0.1 TH/MM3 0.2 TH/MM3 0.1 TH/MM3 (0-0.4) (0-0.4) (0-0.4) Basophils # (Auto) 0.1 TH/MM3 0.1 TH/MM3 0.1 TH/MM3 (0-0.2) (0-0.2) (0-0.2) CBC Comment AUTO DIFF AUTO DIFF AUTO DIFF Differential Total Cells 100 100 100 Counted Neutrophils % (Manual) 75 % (16-70) 80 % (16-70) 75 % (16-70) Band Neutrophils % 10 % (0-6) 2 % (0-6) 10 % (0-6) Lymphocytes % 2 % (9-44) 3 % (9-44) 10 % (9-44) Monocytes % 7 % (0-8) 7 % (0-8) 1 % (0-8) Eosinophils % 2 % (0-4) 1 % (0-4) Neutrophils # (Manual) 16.0 TH/MM3 14.2 TH/MM3 11.0 TH/MM3 (1.8-7.7) (1.8-7.7) (1.8-7.7) Metamyelocytes 4 % (0-1) 4 % (0-1) 2 % (0-1) Nucleated Red Blood Cells 1 /100 WBC (0-0) Differential Comment FINAL DIFF FINAL DIFF FINAL DIFF MANUAL MANUAL MANUAL Toxic Granulation 1+ (NORMAL) Platelet Estimate NORMAL LOW (NORMAL) LOW (NORMAL) (NORMAL) Platelet Morphology Comment NORMAL ENLARGED NORMAL (NORMAL) (NORMAL) (NORMAL) Acanthocytes OCC (NORMAL) Keratocytes OCC (NORMAL) Sodium Level 144 MEQ/L 143 MEQ/L 144 MEQ/L (136-145) (136-145) (136-145) Potassium Level 4.2 MEQ/L 4.2 MEQ/L 4.2 MEQ/L (3.5-5.1) (3.5-5.1) (3.5-5.1) Chloride Level 112 MEQ/L 111 MEQ/L 110 MEQ/L (98-107) (98-107) (98-107) Carbon Dioxide Level 17.9 MEQ/L 19.8 MEQ/L 23.8 MEQ/L (21.0-32.0) (21.0-32.0) (21.0-32.0) Anion Gap 14 MEQ/L (5-15) 12 MEQ/L (5-15) 10 MEQ/L (5-15) Blood Urea Nitrogen 84 MG/DL (7-18) 82 MG/DL (7-18) 77 MG/DL (7-18) Creatinine 1.98 MG/DL 1.76 MG/DL 1.54 MG/DL (0.60-1.30) (0.60-1.30) (0.60-1.30) Estimat Glomerular Filtration 36 ML/MIN (>89) 41 ML/MIN (>89) 47 ML/MIN (>89) Rate Random Glucose 104 MG/DL 130 MG/DL 122 MG/DL (74-106) (74-106) (74-106) Calcium Level 7.8 MG/DL 7.7 MG/DL 7.7 MG/DL (8.5-10.1) (8.5-10.1) (8.5-10.1) Basophils % 1 % (0-2) 1 % (0-2) Myelocytes 2 % (0-0) Promyelocytes 1 % (0-0) Phosphorus Level 4.8 MG/DL 4.3 MG/DL (2.5-4.9) (2.5-4.9) Magnesium Level 1.9 MG/DL 1.8 MG/DL (1.5-2.5) (1.5-2.5) Stomatocytes 1+ (NORMAL) . Result Diagram: 01/23/1640301/23/164 Imaging Last Impressions Abdomen/Pelvis CT 01/23/16 0800 Signed Impressions: Service Date/Time: Saturday, January 23, 2016 09:05 - CONCLUSION: Relative to the prior study the marked distention of the stomach is reduced. There is a persistent 5 cm left upper quadrant sub-diaphragmatic fluid collection and drain in the left upper quadrant. Patient is post splenectomy. Jejunostomy is in place and ostomy is noted in the right lower abdomen. No free fluid or free air is appreciated and there is no evidence of obstruction. Bilateral pleural effusions persists small but slightly larger on the right with left lower lobe consolidation. Jared Medina MD ADDENDUM: I have reviewed the images with respect to her request made for left subdiaphragmatic drainage of a fluid collection. No fluid collection is observed within the left upper quadrant. There is residual splenic tissue that measures 5 cm in diameter with Hounsfield units 62. The stomach fundus extends up into the subdiaphragmatic location. No subdiaphragmatic fluid collection is observed. Surgical drains are noted. Osmar Chavez Jr., MD Upper Extremity Ultrasound 01/23/16 0600 Signed Impressions: Service Date/Time: Saturday, January 23, 2016 11:29 - CONCLUSION: Normal examination. No evidence DVT Jared Medina MD Chest X-Ray 01/21/16 0600 Signed Impressions: Service Date/Time: Thursday, January 21, 2016 05:12 - CONCLUSION: 1. Cardiomegaly and left retrocardiac/basilar density. 2. Slight interstitial prominence. Wojciech Lockhart MD Chest CT 01/05/16 0000 Signed Impressions: Service Date/Time: Tuesday, January 05, 2016 23:15 - CONCLUSION: 1. Persistent left lower lobar consolidation. Improved consolidative infiltrates in the right lower lung. 2. Interval increase size bilateral pleural effusions , left greater than right. Osmar Alegria MD Celiac/Hepatic Arteriogram 12/27/15 0000 Signed Impressions: Service Date/Time: December 13:41 - CONCLUSION: 1. No active GI bleed identified. Robert Mckinney MD Abdomen X-Ray 12/18/15 0000 Signed Impressions: Service Date/Time: Friday, December 18, 2015 16:05 - CONCLUSION: Feeding tube tip is at the gastric antrum. Arnaldo Elias MD Head CT 12/02/15 1013 Signed Impressions: Service Date/Time: Wednesday, December 02, 2015 11:00 - CONCLUSION: 1. No intracranial abnormality is seen. 2. Air-fluid level in the right maxillary sinus. Arnaldo Reyes MD . Procedures 12/02/15: Intubated 12/02/15: NG tube placed 12/02/15: Right subclavian central line placed 12/14/15: Left IJ central line placement BEV PEG tube Ileostomy 12/28/15: Tracheostomy 12/30/15: Right subclavian central venous line placed 01/05/16: Right axillary arterial line placement 01/05/16: Right IJ central line placement 01/05/16: Bronchoscopy 01/17/16: EGD . . . 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 Probable causes of plain include multiple surgeries, invasive lines ( central line, PIV), Sandoval, BEV drains, ostomy, NG tube, tracheostomy, immobility , bedbound status etc. Patient receives oxycodone 20mg PO every 4 hours ATC , acetaminophen 650 mg PO q6 hours ATC and Duragesic patch 75 g every 72 hours. Additionally PRN hydromorphone 2mg IV is available every 2 hours, patient is using sparingly (1 doses of hydromorphone were administered in the past 24 hours.) . (2) Malnutrition 0-10 Scale: Unable to quantify (3) Encephalopathy 0-10 Scale: Unable to quantify Comment: Patient remains encephalopathic. Pertinent Non-Medical Issues Psychosocial:Patient was born in [facility], [place], moving to [place] at a young age. He has 2 siblings who live locally (Feroz and Janeen). He attended [employer] 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 The patient met his current (Gopi Smith) through mutual friends and they have now been for approximately 20 years. The patient has 1 adult daughter (Kezia) from a previous relationship. She is 30 years old. Spiritual:No methodist affiliation Legal: There is no designated health care surrogate. Per [place] statutes, in the absence of written advanced directives healthcare proxy falls to the patient 's , Gopi Smith. Ethical issues impacting care: None at this time. . Important Contacts Gopi Smith, spouse: [phone] Kezia Starks, daughter: [phone] . . Prognosis Patient is a 55 year old male with a long history of chronic illnesses. PMH is significant for Hep C, NIGEL, gout, RA, HTN, chronic pain, and migraines. Patient was admitted on 12/02/15 with sepsis due to Staph Aureus hand infection and E. Coli bacteriemia. Patient has been to the OR multiple times for GI bleed. Patient has had persistent anemia/thrombocytopenia requiring multiple transfusions. S/p tracheotomy, ileostomy, BEV 2, and G- tube, patient remains critically ill with an overall poor prognosis. . Code Status: Full Code Plan * FULL CODE * Decision-making: The patient is currently not capacitated to participate in decisions related to medical treatment goals. There is no designated health care surrogate. Per [place] statutes, in the absence of written advanced directives healthcare proxy falls to the patient's . HCP: GOPI SMITH ( ). * Goals: GOALS REMAIN AGGRESSIVE. However, patient's daughter and agree the patient would not want to be kept alive on machines. They do not feel he is at the point where they need to consider stopping care because he has "gotten through so much are ready". * Patient will require placement at a SNF for rehabilitation upon discharge. Patient is self pay, medicaid/SSI pending. * Symptom managementpain: Patient has a history of chronic pain, takes methadone and MS Contin at home. Probable causes of plain include multiple surgeries, invasive lines (central line, PIV), Sandoval, BEV drains, ostomy, NG tube , tracheostomy, immobility, bedbound status etc. Patient receives oxycodone 20mg PO every 4 hours ATC , acetaminophen 650 mg PO q6 hours ATC and Duragesic patch 75 g every 72 hours. Additionally PRN hydromorphone 2mg IV is available every 2 hours, patient is using sparingly (1 doses of hydromorphone were administered in the past 24 hours.). Palliative care will monitor PRN requirements and make adjustments as indicated. * Symptom managementmalnutrition. 01/24/16: Protein 3.3, Albumin 1.6 Bilateral lower extremities with atrophy, muscle wasting. Continue to monitor, no recommendations at this time. * Spoke to patient's daughter via telephone, discussed recent CT abdomen/pelvis results. * Palliative care will continue to follow this patient throughout his hospitalization to establish trust, assist with symptom management and clarification of medical treatment goals. Attestation To help prompt me to consider important information that might be impacting today's encounter and assessment, information from prior notes written by myself or my colleagues may have been "brought forward" into today's note. My signature on this note, however, is an attestation that I personally performed the exam, history, and/or decision-making noted today, and, unless otherwise indicated, the interactions with patient, family, and staff as well as the review of records all occurred today. I also attest that the listed assessment and stated plan reflect my best clinical judgment today based on the combination of historical information, prior notes, and today's exam/ interactions. When time spent is documented, it refers only to time spent today by the signer, or if indicated, combined time spent today by collaborating physician/nurse practitioner. . . Leah Pop Jan 23, 2016 17:18
--- NOTE | 2016-01-23 17:22 | HHI.PR ---
Subjective Subjective Notes Resting in bed In good spirits Objective Vitals/I&O Vital Signs Date Time Temp Pulse Resp B/P Pulse Ox O2 Delivery O2 Flow Rate FiO2 01/23/16 16:00 28 01/23/16 16:00 108 01/23/16 16:00 97.4 24 180/90 99 01/23/16 15:48 T-piece 01/20/16 16:45 6.00 Labs Laboratory Tests Test 01/23/16 04:04 White Blood Count 12.6 Red Blood Count 2.61 Hemoglobin 7.6 Hematocrit 23.8 Mean Corpuscular Volume 91.1 Mean Corpuscular Hemoglobin 29.2 Mean Corpuscular Hemoglobin 32.1 Concent Red Cell Distribution Width 18.8 Platelet Count 134 Mean Platelet Volume 9.8 Neutrophils (%) (Auto) 76.0 Lymphocytes (%) (Auto) 12.3 Monocytes (%) (Auto) 9.9 Eosinophils (%) (Auto) 1.2 Basophils (%) (Auto) 0.6 Neutrophils # (Auto) 9.6 Lymphocytes # (Auto) 1.5 Monocytes # (Auto) 1.2 Eosinophils # (Auto) 0.1 Basophils # (Auto) 0.1 CBC Comment AUTO DIFF Differential Total Cells 100 Counted Neutrophils % (Manual) 75 Band Neutrophils % 10 Lymphocytes % 10 Monocytes % 1 Eosinophils % 1 Basophils % 1 Neutrophils # (Manual) 11.0 Metamyelocytes 2 Differential Comment FINAL DIFF MANUAL Platelet Estimate LOW Platelet Morphology Comment NORMAL Stomatocytes 1+ Sodium Level 144 Potassium Level 4.2 Chloride Level 110 Carbon Dioxide Level 23.8 Anion Gap 10 Blood Urea Nitrogen 77 Creatinine 1.54 Estimat Glomerular Filtration 47 Rate Random Glucose 122 Calcium Level 7.7 Phosphorus Level 4.3 Magnesium Level 1.8 Date/Time Procedure Status Source Growth 01/20/16 15:37 Aerobic Blood Culture - Preliminary Resulted Blood Peripheral Staph Sp Coagulase Negative 01/20/16 15:37 Anaerobic Blood Culture - Preliminary Resulted Blood Peripheral NO GROWTH IN 3 DAYS Radiology Last Impressions Chest X-Ray 12/28/15 0000 Signed Impressions: Service Date/Time: Monday, December 28, 2015 14:23 - CONCLUSION: Large left pleural effusion and left lung base consolidation. Freddy Connor MD Abdomen/Pelvis CT 12/19/15 0000 Signed Impressions: Service Date/Time: Saturday, December 19, 2015 10:57 - CONCLUSION: 1. Adjacent volume pneumoperitoneum is observed consistent with perforation of a hollow viscus. This is presumably colonic in origin due to the diffuse inflammatory process involving the colon. I do not clearly identify the source of the pneumoperitoneum however. There is mild dilatation of the small bowel likely an ileus in nature. A significant volume of ascitic fluid is noted. 2. Bibasilar atelectasis and bilateral pleural effusions. 3. Small pericardial effusion. 4. Small bilateral nonobstructing renal calculi. 5. I spoke with Dr. Sanchez concerning the findings. Osmar Chavez Jr., MD Abdomen X-Ray 12/18/15 0000 Signed Impressions: Service Date/Time: Friday, December 18, 2015 16:05 - CONCLUSION: Feeding tube tip is at the gastric antrum. Arnaldo Elias MD Chest CT 12/14/15 0000 Signed Impressions: Service Date/Time: Monday, December 14, 2015 06:12 - CONCLUSION: 1. Cardiomegaly with bilateral consolidation, likely CHF. Pneumonia cannot be excluded. 2. Small right pleural effusion. Wojciech Lockhart MD Head CT 12/02/15 1013 Signed Impressions: Service Date/Time: Wednesday, December 02, 2015 11:00 - CONCLUSION: 1. No intracranial abnormality is seen. 2. Air-fluid level in the right maxillary sinus. Arnaldo Reyes MD Cardiovascular: Regular Lungs: Clear Abdomen: Other (see below ), Post-op tenderness Narrative Exam RIGHT arm with wound vac on Abd: Midline incision--- packing removed and replaced to superior and inferior portion of incision; RIGHT BEV with serous drainage; LEFT with darker sedimentary drainage; ileostomy with stool A/P Problem List: (1) Dependent on ventilator (2) Open wound of abdomen (3) Ileostomy in place (4) Jejunostomy tube present (5) S/P total colectomy (6) Acute colitis (7) Gastrostomy tube in place Assessment and Plan 55 year old male s/p ex lap; s/p colectomy; G/J tube placement and would vac change -Hmg stable -Tolerating TF -Hmg stable -WBC trending down -[place] dressing BID and PRN to midline incision ----packing to superior and inferior areas of incision -Monitor BEV output and drainage color -Plan for repeat CT Abd/Pel today to eval BEV drains ---shows fluid collection in LUQ---consult to IR for eval and drain replacement Problem Qualifiers (1) Open wound of abdomen: Qualified Code: S31.109D - Open wound of abdomen, subsequent encounter Lurdes Felix Jan 23, 2016 17:21
[2016-01-23] MEDS: LABETALOL HCL 100 MG/20 ML VIAL IV PRN (18:32)
[2016-01-23 18:41] LABS: BLOOD GAS BASE EXCESS -3.3 mmol/L (-2-2); BLOOD GAS CARBOXYHEMOGLOBIN 1.4 % (0-4); BLOOD GAS HCO3 22 mmol/L (22-26); BLOOD GAS METHEMOGLOBIN 0.6 % (0-2); BLOOD GAS O2 HGB SATURATION 90 % (90-100); BLOOD GAS OXYGEN CONTENT 10.7 Vol % (12.0-20.0); BLOOD GAS PCO2 42 mmHg (38-42); BLOOD GAS PO2 64 mmHg (61-120); BLOOD GAS TOTAL HGB 8.4 G/DL (12.0-16.0); CRITICAL VALUE NO; FIO2 40 %; OXYGEN DEVICE VENTILATOR; TEMP CORR TO 98.6; VENT SETTINGS CPAP/8IPAP/5EPAP
[2016-01-23 18:42] LABS: DRAW SITE LT RADIAL; NUMBER OF ARTERIAL PUNCTURES 1; STAT NO; ULNAR PULSE PRESENT
--- NOTE | 2016-01-23 18:51 | HHI.IDPN ---
Subjective Subjective Remarks delayed entry Pt was seen today around [address] showed persistent 5 cm left upper quadrant sub-diaphragmatic fluid collection and drain in the left upper quadrant and pulmonary consolidations Antibiotics fluconazole Lines RSC TLC Past Medical History RA HCV sp splenectomy Allergies: Coded Allergies: Compazine (Verified Allergy, Severe, VOMITING, RASH, 08/26/14) SLURRED SPEECH, MIGRAINES Demerol (Verified Allergy, Severe, VOMITING, 08/26/14) Levaquin (Verified Allergy, Severe, 08/26/14) Penicillin (Verified Allergy, Severe, Rash, 08/26/14) Phenergan (Verified Allergy, Severe, VOMITING, 08/26/14) Uncoded Allergies: ANTI-CONVULSIVES (Allergy, Severe, MIGRAINES, SLURRED SPEECH,, 01/23/14) Objective . Vital Signs Date Time Temp Pulse Resp B/P Pulse Ox O2 Delivery O2 Flow Rate FiO2 01/23/16 18:00 118 01/23/16 17:46 40 01/23/16 17:42 100 40 01/23/16 16:00 28 01/23/16 16:00 108 01/23/16 16:00 97.4 108 24 180/90 99 01/23/16 15:48 100 T-piece 40 01/23/16 14:00 104 01/23/16 13:47 16 01/23/16 13:07 14 01/23/16 12:00 160 01/23/16 12:00 98.6 160 23 178/84 100 01/23/16 12:00 40 01/23/16 11:30 40 01/23/16 11:22 100 40 01/23/16 10:00 118 01/23/16 08:45 94 35 01/23/16 08:00 96 01/23/16 08:00 28 01/23/16 08:00 98.2 104 27 167/79 98 01/23/16 07:46 100 T-piece 40 01/23/16 06:00 106 01/23/16 04:00 100 40 01/23/16 04:00 98.4 104 22 150/74 99 01/23/16 04:00 104 01/23/16 04:00 40 01/23/16 02:00 89 01/23/16 01:28 100 40 01/23/16 00:00 40 01/23/16 00:00 100 01/23/16 00:00 98.4 100 22 149/80 100 01/22/16 22:00 104 01/22/16 22:00 100 40 01/22/16 20:00 40 01/22/16 20:00 98.3 104 20 141/79 99 01/22/16 20:00 102 01/22/16 19:41 100 40 01/22/16 01/22/16 01/23/16 15:00 23:00 07:00 Intake Total 933 ml 525 ml 640 ml Output Total 860 ml 655 ml 580 ml Balance 73 ml -130 ml 60 ml Intake Oral 0 ml IV Total 261 ml 81 ml 80 ml Tube Feeding 452 ml 324 ml 360 ml Tube Irrigant 120 ml Other 100 ml 120 ml 200 ml Output Urine Total 700 ml 550 ml 450 ml Stool Total 100 ml 30 ml 40 ml Drainage Total 60 ml 75 ml 90 ml . Laboratory Tests Test 01/22/16 01/23/16 03:53 04:04 White Blood Count 16.0 TH/MM3 12.6 TH/MM3 Red Blood Count 2.74 MIL/MM3 2.61 MIL/MM3 Hemoglobin 8.1 GM/DL 7.6 GM/DL Hematocrit 24.7 % 23.8 % Mean Corpuscular Volume 89.9 FL 91.1 FL Mean Corpuscular Hemoglobin 29.4 PG 29.2 PG Mean Corpuscular Hemoglobin 32.7 % 32.1 % Concent Red Cell Distribution Width 18.2 % 18.8 % Platelet Count 144 TH/MM3 134 TH/MM3 Mean Platelet Volume 9.8 FL 9.8 FL Neutrophils (%) (Auto) 78.4 % 76.0 % Lymphocytes (%) (Auto) 10.5 % 12.3 % Monocytes (%) (Auto) 9.7 % 9.9 % Eosinophils (%) (Auto) 1.0 % 1.2 % Basophils (%) (Auto) 0.4 % 0.6 % Neutrophils # (Auto) 12.5 TH/MM3 9.6 TH/MM3 Lymphocytes # (Auto) 1.7 TH/MM3 1.5 TH/MM3 Monocytes # (Auto) 1.6 TH/MM3 1.2 TH/MM3 Eosinophils # (Auto) 0.2 TH/MM3 0.1 TH/MM3 Basophils # (Auto) 0.1 TH/MM3 0.1 TH/MM3 CBC Comment AUTO DIFF AUTO DIFF Differential Total Cells 100 100 Counted Neutrophils % (Manual) 80 % 75 % Band Neutrophils % 2 % 10 % Lymphocytes % 3 % 10 % Monocytes % 7 % 1 % Basophils % 1 % 1 % Neutrophils # (Manual) 14.2 TH/MM3 11.0 TH/MM3 Metamyelocytes 4 % 2 % Myelocytes 2 % Promyelocytes 1 % Differential Comment FINAL DIFF FINAL DIFF MANUAL MANUAL Platelet Estimate LOW LOW Platelet Morphology Comment ENLARGED NORMAL Eosinophils % 1 % Stomatocytes 1+ Laboratory Tests Test 01/22/16 01/23/16 03:53 04:04 Sodium Level 143 MEQ/L 144 MEQ/L Potassium Level 4.2 MEQ/L 4.2 MEQ/L Chloride Level 111 MEQ/L 110 MEQ/L Carbon Dioxide Level 19.8 MEQ/L 23.8 MEQ/L Anion Gap 12 MEQ/L 10 MEQ/L Blood Urea Nitrogen 82 MG/DL 77 MG/DL Creatinine 1.76 MG/DL 1.54 MG/DL Estimat Glomerular Filtration 41 ML/MIN 47 ML/MIN Rate Random Glucose 130 MG/DL 122 MG/DL Calcium Level 7.7 MG/DL 7.7 MG/DL Phosphorus Level 4.8 MG/DL 4.3 MG/DL Magnesium Level 1.9 MG/DL 1.8 MG/DL Imaging [place] Last Impressions Abdomen/Pelvis CT 01/23/16 0800 Signed Impressions: Service Date/Time: Saturday, January 23, 2016 09:05 - CONCLUSION: Relative to the prior study the marked distention of the stomach is reduced. There is a persistent 5 cm left upper quadrant sub-diaphragmatic fluid collection and drain in the left upper quadrant. Patient is post splenectomy. Jejunostomy is in place and ostomy is noted in the right lower abdomen. No free fluid or free air is appreciated and there is no evidence of obstruction. Bilateral pleural effusions persists small but slightly larger on the right with left lower lobe consolidation. Jared Medina MD Upper Extremity Ultrasound 01/23/16 06 Signed Impressions: Service Date/Time: Saturday, January 23, 2016 11:29 - CONCLUSION: Normal examination. No evidence DVT Jared Medina MD Chest X-Ray 01/21/16 06 Signed Impressions: Service Date/Time: Thursday, January 21, 2016 05:12 - CONCLUSION: 1. Cardiomegaly and left retrocardiac/basilar density. 2. Slight interstitial prominence. Wojciech Lockhart MD Chest CT 01/05/16 0000 Signed Impressions: Service Date/Time: Tuesday, January 05, 2016 23:15 - CONCLUSION: 1. Persistent left lower lobar consolidation. Improved consolidative infiltrates in the right lower lung. 2. Interval increase size bilateral pleural effusions , left greater than right. Osmar Alegria MD Celiac/Hepatic Arteriogram 12/27/15 0000 Signed Impressions: Service Date/Time: December 13:41 - CONCLUSION: 1. No active GI bleed identified. Robert Mckinney MD Abdomen X-Ray 12/18/15 0000 Signed Impressions: Service Date/Time: Friday, December 18, 2015 16:05 - CONCLUSION: Feeding tube tip is at the gastric antrum. Arnaldo Elias MD Head CT 12/02/15 1013 Signed Impressions: Service Date/Time: Wednesday, December 02, 2015 11:00 - CONCLUSION: 1. No intracranial abnormality is seen. 2. Air-fluid level in the right maxillary sinus. Arnaldo Reyes MD Physical Exam GENERAL: On vent , awake alert SKIN: + minimal jaundice. Anasarca HEENT: + mild icterus, no nasal discharge Chemosis + NECK: Trach in place CARDIOVASCULAR: systolic murmur in base of heart RESPIRATORY/CHEST: scattered rhonchi on auscultation.L side with crackes GASTROINTESTINAL: dressing in place JPsx2 in place, one with with seropurulent drainage another with clear yellow serous Stoma with brown stool Incision packed moderatre serous d/c GENITOURINARY: Sandoval catheter in place with clear light yellow urine with sediment MUSCULOSKELETAL: Extremities no cyanosis, edema improved on BLE, improved pitting edema 1-2+ RUE with with VAC LUE with dressignin place NEUROLOGICAL: fully awake and alert , makes eye contact and follows commands communicates appropiately LINES: NO evidence of infection Assessment & Plan Remarks Sepsis related to Cdiff and Intra abdominal peritonitis. - sp subtotal colectomy and ileostomy SP colon perfocation and intraperitoneal gross contamination - wound is not healing ? Cdiff Colitis Noted Cdiff PCR is negative3/3 ? Zinc preparation in perianal care could cause false negative test. Path c/o Cdiff Colitis. - repeat path favouring ischemia RUE severe nec fasc due to MSSA - skin grafting was planned, but cancelled - S/P I and D x 3 - clinically resolved Recurretn life threatening upper GI bleeding 2/2 bleeding ulcers Persistent leukocytosis - improving C. parapsilosa fungemia ? sourece intraabd vs (less likely) line - repeat BC negative - no fungal endophalmitis - Dr Parker help appreciated New issue: Low grade coag negative staph bacteremia, 1/4 bottles - no central lines - probably contaminant; would not Rx at this point Persistent intraabdminal fluid collection - to IR for drainage PLAN: cont fluconazole - anticipate 4 weeks - can be switche d to po once pt consistently tolerates po monitor WBC will fu clx on the drained fluid collection D/W RN Argelia [address] Dr, MD Jan 23, 2016 18:51
[2016-01-24] VITALS (19 sets, daily range): BP systolic 129–179; BP diastolic 74–96; PULSE 96–128; RESP 14–34; TEMP 97.4–98.8; O2SAT 93–100
[2016-01-24] MEDS: oxyCODONE HCL ORAL CONC 20 MG/ML SYRINGE PO SCH ×6 (01:00→21:09)
[2016-01-24] MEDS: RESP: ALBUTEROL 2.5 MG/IPRATROPIUM 0.5 MG NEB (SCH) NEB ×4 (01:25→19:56)
[2016-01-24] MEDS: METOPROLOL TARTRATE 25 MG TAB TUBE SCH ×3 (04:00→21:08)
[2016-01-24] MEDS: CHLORHEXIDINE GLUCONATE 2 % 1 PACK (2 CLOTHS) TOP SCH (04:00)
[2016-01-24 04:58] LABS: BICARBONATE 22.5 MEQ/L (21.0-32.0); MAGNESIUM 1.6 MG/DL (1.5-2.5); POTASSIUM 4.8 MEQ/L (3.5-5.1)
[2016-01-24] MEDS: FREE WATER G-TUBE SCH ×3 (05:02→21:08)
[2016-01-24] MEDS: PANTOPRAZOLE SODIUM 40 MG VIAL IV PUSH SCH ×2 (05:02→17:17)
[2016-01-24] MEDS: INSULIN ASPART SUPPLEMENTAL SCALE SQ SCH ×4 (05:02→18:00)
[2016-01-24 05:24] LABS: HEMATOCRIT 26.3 % (39.0-51.0); MEAN CELL VOLUME 90.6 FL (80.0-100.0); MEAN CORPUSCULAR HEMOGLOBIN 29.5 PG (27.0-34.0); MEAN CORPUSCULAR HGB CONC 32.5 % (32.0-36.0); PLATELET COUNT 153 TH/MM3 (150-450); RED CELL DISTRIBUTION WIDTH 18.5 % (11.6-17.2); REVIEW FLAG FINAL; WHITE BLOOD COUNT 11.9 TH/MM3 (4.0-11.0)
--- NOTE | 2016-01-24 09:24 | PD.PLAS.PN ---
Subjective Remarks Date of evaluation: 01/23/16 The patient was lying comfortably. Objective Vital Signs Date Time Temp Pulse Resp B/P Pulse Ox O2 Delivery O2 Flow Rate FiO2 01/24/16 07:41 100 T-piece 4.00 40 01/24/16 06:00 111 01/24/16 04:00 35 01/24/16 04:00 120 01/24/16 04:00 97.7 120 14 148/81 97 01/24/16 03:36 97 35 01/24/16 02:00 108 01/24/16 01:21 100 30 01/24/16 00:00 97.4 102 16 179/79 100 01/24/16 00:00 35 01/24/16 00:00 102 01/23/16 22:00 108 01/23/16 20:00 97.4 108 16 149/79 99 01/23/16 20:00 35 01/23/16 20:00 108 01/23/16 19:36 100 35 01/23/16 18:00 118 01/23/16 17:46 40 01/23/16 17:42 100 40 01/23/16 16:00 28 01/23/16 16:00 108 01/23/16 16:00 97.4 108 24 180/90 99 01/23/16 15:48 100 T-piece 40 01/23/16 14:00 104 01/23/16 13:47 16 01/23/16 13:07 14 01/23/16 12:00 160 01/23/16 12:00 98.6 160 23 178/84 100 01/23/16 12:00 40 01/23/16 11:30 40 01/23/16 11:22 100 40 01/23/16 10:00 118 I/O 01/23/16 01/23/16 01/23/16 01/24/16 01/24/16 01/24/16 06:59 14:59 22:59 06:59 14:59 22:59 Intake Total 640 ml 918 ml 565 ml 247 ml Output Total 580 ml 700 ml 830 ml 720 ml Balance 60 ml 218 ml -265 ml -473 ml IV Total 80 ml 333 ml 82 ml 84 ml Tube Feeding 360 ml 460 ml 483 ml 163 ml Other 200 ml 125 ml Output Urine Total 450 ml 625 ml 600 ml 650 ml Stool Total 40 ml 200 ml 50 ml Drainage Total 90 ml 75 ml 30 ml 20 ml Laboratory Tests Test 01/23/16 01/24/16 01/24/16 18:30 04:00 05:09 Blood Gas Puncture Site LT RADIAL Blood Gas Patient Temperature 98.6 Blood Gas HCO3 22 Blood Gas Base Excess -3.3 Blood Gas Oxygen Saturation 90 Arterial Blood pH 7.33 Arterial Blood Partial 42 Pressure CO2 Arterial Blood Partial 64 Pressure O2 Arterial Blood Oxygen Content 10.7 Arterial Blood 1.4 Carboxyhemoglobin Arterial Blood Methemoglobin 0.6 Blood Gas Hemoglobin 8.4 Oxygen Delivery Device VENTILATOR Blood Gas Ventilator Setting CPAP/8IPAP/5EPAP Blood Gas Inspired Oxygen 40 Sodium Level 145 Potassium Level 4.8 Chloride Level 112 Carbon Dioxide Level 22.5 Anion Gap 11 Blood Urea Nitrogen 67 Creatinine 1.18 Estimat Glomerular Filtration 65 Rate Random Glucose 90 Calcium Level 8.0 Phosphorus Level 3.3 Magnesium Level 1.6 White Blood Count 11.9 Red Blood Count 2.90 Hemoglobin 8.6 Hematocrit 26.3 Mean Corpuscular Volume 90.6 Mean Corpuscular Hemoglobin 29.5 Mean Corpuscular Hemoglobin 32.5 Concent Red Cell Distribution Width 18.5 Platelet Count 153 Mean Platelet Volume 9.6 Date/Time Procedure Status Source Growth 01/20/16 15:37 Aerobic Blood Culture - Preliminary Resulted Blood Peripheral Staph Sp Coagulase Negative 01/20/16 15:37 Anaerobic Blood Culture - Preliminary Resulted Blood Peripheral NO GROWTH IN 3 DAYS Result Diagram: 01/24/16 0509 01/24/16 0400 Exam Findings Wound vac is in place to right upper extremity. Wound vac was removed for evaluation. The wound bed is clean and covered with granulation tissue over the forearm. Tendons remain exposed at the dorsal hand. There is no evidence of infection. Periwound skin is without evidence of cellulitis. Assessment and Plan Diagnosis: (1) Open wound of right upper extremity with complication Assessment and Plan Discontinue wound vac to right arm. Dress right arm wound with silvadene, adaptic, and dry absorptive dressing. This is discussed with wound care nurse as well as the RN. The exam, history, and the medical decision-making described in the above note were completed with the assistance of the mid-level provider. I reviewed and agree with the findings presented. I attest that I had a [id number] encounter with the patient on the same day, and personally performed and documented my assessment and findings in the medical record. Barbara Pedro M.D. [place] Jan 24, 2016 09:23
[2016-01-24] MEDS: SODIUM CHLORIDE 0.9% FLUSH 5 ML FLUSH IVF PRN (09:32)
[2016-01-24] MEDS: NYSTATIN SUSP 500,000 U/5 ML CUP SWISH-SPIT SCH ×4 (09:32→21:07)
[2016-01-24] MEDS: MULTIVITAMINS LIQUID 5 ML UDC TUBE SCH (09:32)
[2016-01-24] MEDS: FERROUS SULFATE 300 MG /5ML UDC TUBE SCH ×2 (09:32→21:07)
[2016-01-24] MEDS: CHLORHEXIDINE 0.12% (ORAL KIT) 15 ML CUP MT SCH ×2 (09:33→21:08)
[2016-01-24] MEDS: POVIDONE IODINE 10% OINT 30 GM TUBE TOPICAL SCH (09:33)
[2016-01-24] MEDS: predniSONE 10 MG TAB NG SCH (09:33)
[2016-01-24] MEDS: NEOMYCIN/POLYMYXIN/BACITRACIN OINT 15 GM TUBE TOPICAL SCH ×2 (09:33→21:09)
[2016-01-24] MEDS: SILVER SULFADIAZINE 1% CR 400 GM JAR TOPICAL SCH (09:34)
[2016-01-24] MEDS: HYDROmorphone HCL PF 2 MG/ML VIAL IV PUSH PRN ×4 (09:58→23:47)
[2016-01-24] MEDS: REMOVE OLD PATCH TD SCH (11:48)
[2016-01-24] MEDS: fentaNYL 75 MCG/HR PATCH TD SCH (11:48)
[2016-01-24] MEDS: FLUCONAZOLE 400 MG PREMIX BAG 200 ML IV SCH (11:49)
--- NOTE | 2016-01-24 13:33 | HHI.CCPN ---
Subjective Remarks/Hospital Course 55-year-old male brought by EMS with altered mental status. He has been confused for 2 days but this morning has been the worst. He has history of chronic opiate medications including methadone and morphine that he takes for pain management and hence they gave him Narcan IV which brought the GCS up to 13. The blood glucose was 74. He has open wounds from his right upper and bilateral lower extremities. He has history of hepatitis C. Last week he was pealing and eating shrimps. Bedside blood sugar was 76 in the ER. He was tachycardic in 1 teens and was intubated in the ED for airway protection. Admitted to ICU with sepsis due to Staph Aureus hand infection and E. Coli bacteriemia. 12/05 Patient remains sedated with Fentanyl and intubated. On Levophed 3 mics, Vasopressin 0.03 mics and Bicarb drip. T:99.8 TF placed on hold OGT to LIWS last night - gastric drainage 525ml overnight. 12/06 Patient is sedated with Fentanyl and intubated, On Levophed 3 mics, off vasopressin. Gastric output 400ml in 24 hrs. KUB abdomen yesterday mildly distended colon otherwise non specific KUB. 12/07 Patient is off sedation remains intubated tolerated CPAP for most day yesterday. Afebrile. on no drips, tolerating tube feeds. 12/08 Patient went to OR yesterday for debridement and irrigation of right forearm and wound VAC placement. Given 2U PRBC and 2u PLT yesterday and currently receiving 1of 2 u additional PRBC. Hgb 7.7, PLT 43 this morning. Patient also started on pressors now on Levophed 10 mics. Vasopressin 0.04 mics. On no sedation. 12/09 Patient remains intubated off pressors, Afebrile. Tolerating tube feeds. Afebrile. 12/10 Patient is sedated with Fentanyl and intubated. Awake and follows commands off sedation. Afebrile. 12/11 Patient had ?SVT overnight given Lopressor 2.5mg IV x1, Remains intubated and sedated with Fentanyl. Afebrile. Tolerating TF. 12/12 Patient spoked fever last night with T: 101.5, sedated with Fentanyl and intubated. 12/13 Patient had an episode of desaturation overnight required increase FIO2/ PEE now on ACV with RR 14, TV 550, PEEP: 12, FIO2 60% with sats 100% CT chest performed overnight showed b/l consolidation and small pleural effusion. Had T: 100.0 last night. 12/14 Tolerating PS 15/CPAP 10 FiO2 40% with rSBI 38, weaning. . Awake and alert , following commands. Hypotensive overnight and levophed restarted up to 12 mcg/ min. Nurse has been weaning throughout the day. Suspected adrenal insufficiency as he was on prednisone as outpatient for gout and has not been on stress dose steroids. Given decadron. 12/15 Transfused 1 unit PRBC for Hgb 7.0 yesterday, 1 unit PRBC for Hgb 6.6 today and now Hgb 8.3. Does not clinically have e/o active GI bleeding and wound vac output nonbloody. Stool 1500 output, C diff negative. No abdominal pain. Remains Awake and alert, remained on CPAP 10/5 last night and is now tolerating CPAP 5/5. 12/16: Extubated yesterday tolerating well. Breathing comfortably. Able to follow commands. UO 1.8 L in 24 hours. Na slightly increased to 153. 12/17: Significantly worse this AM. WBC up to 28 from 16. Hgb 5.2 from 7.9. tachycardic. pale this AM. states he feels tired. Continues on BiPAP. Plan for debridement of his arms today. LIJ CVL does not have any signs of overt infection. 12/18: Blood cell count continues to rise today to 30 from 28. Required 1 unit of blood for hemoglobin of 6.6 which improved to 7.7 this morning. However, patient remains tachycardic in the 120s and significantly pale. CT abdomen and pelvis ordered and pending. Tachypneic with respiratory rate in the 30s. Only small amount of dark tarry stool yesterday with approximately 300 cc of stool output. C. difficile toxin negative 3. After discussion with infectious disease, restart vancomycin, cefepime, Flagyl, micafungin. Horn cultures are pending. Per discussion with GI, will not scope as endoscopy is high risk given his tenuous respiratory status this point. Slightly worse hypernatremia as well as worsening acute kidney injury this morning. 12/19: POD 1 s/p ex-lap, washout for perforated ascending colon with extended right hemicolectomy, primary ileocolic anastamosis, open abdomen, septic shock, acute hypoxic and hypercarbic respiratory failure. Significantly critically ill overnight: required 6L ivf resuscitation, 1 unit prbc, norepinephrine, vasopressin, stress dose hydrocortisone. This morning, remains on high-dose vasopressors. still has large volume ivf requirement. Significant SIRS response. Vent requirements increasing with all this volume resuscitation, PEEP up to 10. He remains critically ill, and although I do believe we have surgical source control, I anticipate he will continue to clinically decline before he starts to make improvements. 12/20: Off pressors. follows commands on sedation holiday. +11L over last 3 days during acute illness, +22L since admission. We are going to have to get some of this volume back before we are able to close him given his severe anasarca. 12/21: Taken back to the OR yesterday afternoon for washout and completion colectomy. Postoperatively was significantly under resuscitated as well as had ongoing active oozing. Patient was coagulopathy. The patient was in distributive and hemorrhagic shock. The patient was given multiple units of blood products overnight. Patient was thrombocytopenic, hypofibrinogenemic, coagulopathic. Given significant volume of blood product resuscitation: 24h blood products: 13 prbc 8 ffp 2 plt 1 10-pack cryo This morning continues to have significant amount of bright red output out of his BEV and wound VAC, approximately 500 cc an hour out of his wound VAC, and approximately 75 an mils every 10 minutes out of a BEV. I discussed with surgery and we will correct his coagulopathy and plan to go back to the OR for exploration early this afternoon. 12/22: Clinically starting to improve hemodynamically. off vasopressors. Net+ 26L. CVP rising to 14. UOP adequate. Hgb 7 this AM. 12/23 Seen postop. Hypertensive, BP improved with additional pain medicine. Remains net positive but urine output excellent 3L in 24 hours. Remains on Lasix gtt. went to OR today status post wound VAC change and partial closure 12/24: Fascia was closed yesterday. Wound Vac in place. Remains sedated. -2L negative balance, but with increasing BUN/creat. Discontinue Bumex infusion, start scheduled Bumex 2 mg IV every 12 with IV albumin. 12/25: Overnight became hypotensive requiring Levophed to be restarted. Hemoglobin dropped to 4.1. Noted to have bloody drainage from G-tube and dorsal ileostomy with black stool output 12/26: s/p EGD yesterday-2 gastric ulcers bleeding, stomach a significant part had decreased discoloration indicating probable ischemia. s/p epi injection and cauterization. Continues to have coffee ground G tube output, black tarry Ileostomy output. Hemoglobin down to 6.4 getting 2 units of PRBC. GI recent recommending intervention radiology consult. 12/27: For trach today. Meds ordered. Hgb decline consistent with recent transfusions and senescent cells. 12/28: Trach clean, dry. Start SBTs. Check prealbumin. Continue TPN. 12/29: Looks in direction of voice. I have not seen more purposeful reactions. Line > 12 days old, replace today. Prealbumin 20 - good response to TPN. 12/30: Remains vented, encephalopathic, puss like drainage from left hand, WBC increased 01/01: no significant changes. continues to remain critically ill with minimal improvements over the last week. abdomen closed. still total body volume overloaded. 01/02: more awake today than yesterday. continues to be critically ill with minimal improvements overall. need to look towards placement. -900 yesterday. 01/03: up in chair yesterday. tolerated short run of SBT 15/5/40%. net euvolemic. wbc downtrending. 01/04: wbc slightly uptrended 33 from 30, more acidotic on BMP (14 from 20). Also spiking fevers to 102.3 despite tylenol. continues on broad spectrum abx. yesterday's cxr had what may be a new LLL infiltrate. today, though, he is following commands and more awake and alert. 01/05: LLL pna clinically and based on bronch. CT c/a/p done last night without any significant intra-abdominal change. small left pleural effusion which appears simple in nature, and LLL consolidation. ID broadened abx. today , wbc downtrending. culture data pending. Hgb 7 this AM. 01/06: Underwent exploratory laparotomy last night with findings of bleeding gastric ulcer which was oversewn by Dr. Verdin abdomen left open with wound VAC in place. Received 3 units PRBCs overnight. Remains on Wesley-Synephrine drip this morning for hypotension. Remains sedated, on mechanical ventilation. 01/07: Remains sedated, on mechanical ventilation. For abdominal incision site closure today. Significant positive fluid balance over the last 2 days. Off pressors currently. Lasix to mobilize fluid. 01/08: Remains sedated, on mechanical ventilation via tracheostomy. Underwent abdominal incision site closure this morning. Remains off pressors. Anasarca noted. Blood cultures from 01/04 growing Nava parapsilosis. 01/09: Drowsy/sedated, arousable, on mechanical ventilation via tracheostomy. TPN started yesterday. To be started on J-tube feeds per discussion with surgery 01/10: Sedated, arousable, on mechanical ventilation via tracheostomy. Remains on TPN. J-tube feeds being started today. 01/11: Was on T piece yesterday and rested on C Pap overnight. On TPN. Advanced J-tube feeds to 20 cc an hour today. Attempt T piece as tolerated. 01/12: Awake, tracks with his eyes. On C Pap overnight. Tolerated T piece during daytime yesterday. 01/13: Awake and alert. Was on T piece all day yesterday and was placed back on C Pap at 1:45 AM this morning. Does not appear to be in any acute distress. Tolerating J-tube feeds at 20 cc per hour. 01/14: Drowsy, easily arousable. Was on T piece all day yesterday and rested on C Pap at night. Tolerating J-tube feeds at 40 cc an hour with goal of 60 cc per hour. On TPN which will be discontinued after current bag. BEV drain with cloudy drainage. 01/15 Was placed back on ACV yesterday around 9 am due to tachypnea and remained on ACV overnight. Now on CPAP 11/20 and tolerating. BEV in lower abdomen had purulent output yesterday but RN states looks better today. Tolerating tube feeds, stool in ostomy. Off TPN. Removing CVL. 01/16 Hgb 6.6 on CBC this morning, lab draw, repeat pending. Tachycardia persists but otherwise no hemodynamic change. The NGT output yesterday was bilious, today brown/slight coffee grounds but mostly clear. No blood from BEV' s.Has been tolerating jejunal tube feeds, placed on hold for now. Has been tolerating CPAP 10/5 with RSBI 10s. GI/General surgery updated. 01/17 Hemoglobin 8.0. EGD performed yesterday showing gastric ulcers with no active bleeding. Abdominal wound dressing change today. Plan to begin trickle feeds today per general surgery. 01/18 Hgb 7.3. Tolerating trickle feeds that were resumed per general surgery.Tolerated Tpiece 2 hours yesterday. On CPAP 8/5 overnight. Now on Tpiece about 1 hour and doing well. Will continue intermittent Tpiece trials throughout the day with rest on CPAP in between. Watching off abx; cefepime discontinued 01/16. Remains on fluconazole for candidemia. Subjective: 01/19 Trach developed cuff leak overnight. I exchanged Trach at bedside this morning. Tolerated Tpiece 2 hours, now resting on CPAP 8/5. Doing 2 piece trials up to 2 hours as tolerated tid and then plan to start extending duration of Tpiece trials from there. Tolerating tube feeds. 01/20 Tmax 99.2. Continued Protonix twice a day, noted melena continues in ostomy bag. Patient's T piece trials extended to 4 hours today, maximum toleration. Repeat blood cultures 01/19 still pending, WBC count still elevated. Wound care to be consulted for clarification of all specific dressing changes noted new reddened skin breakdown area on sacrum ,and eschar noted several areas left upper extremity all skin margins of wound noted erythematous. manager compliance Mattie Yost in attendance of dressing change CHALO, noted no change in left upper extremity appearance in the last 30 days per her assessment.Requested Plastic Surgery reassess LUE and wound care protocol.Patient continues to tolerate tube feeds no residual noted. 01/21 Tmax 99.0. Overnight the patient continued to have episodes of tachycardia , some heart rate 130, appear non-pain related,requiring PRN dosing of antihypertensive meds. Blood cultures returned this morning gram positive cocci. Plan for CT of the abdomen and pelvis 01/22 discussed with and per general surgery.. Discussion of wounds with Dr. Pedro, plastic surgery yesterday, plans for reevaluation by plastic surgery and definitive/ instructions regarding wound care plan for today, of focus left upper extremity. 01/22 Afebrile. Overnight , HR remains in the low 100s-120. Systolic blood pressure remained above 160 early a.m., despite increase in frequency of metoprolol. Plan for increase in dosage of metoprolol. The patient underwent CT of the abdomen and pelvis early this a.m. showing persistent 5 cm left upper quadrant subdiaphragmatic fluid collection. Neurosurgery aware with plans of drainage per IR. Gastroenterology following, noted ostomy output color, melena resolved recommended resumption of anticoagulation prophylactically ,but will hold with plans of IR drainage of fluid collection, per general surgery at this time. 01/23 Tmax 97.7. Overnight no acute issues, one episode of elevated blood pressure, received 1 dose of hydralazine 20 mg IV, with resolution. The patient has remained nothing by mouth for tentative IR drainage of left upper quadrant fluid collection. Imaging studies reevaluated by radiologist, noted no fluid collection is observed in the left upper quadrant. Tentative scheduling of IR drainage canceled. Tube feeds resumed and DVT prophylaxis, heparin resumed. Albumin level 1.1, Beneprotein added to diet twice a day, tolerated, will increase to QID. Objective Vital Signs Date Time Temp Pulse Resp B/P Pulse Ox O2 Delivery O2 Flow Rate FiO2 01/24/16 12:00 35 01/24/16 11:30 100 01/24/16 10:32 25 01/24/16 08:00 115 01/24/16 07:41 T-piece 4.00 01/24/16 04:00 97.7 148/81 Intake and Output 01/23/16 01/23/16 01/23/16 07:59 15:59 23:59 Intake Total 640 ml 918 ml 565 ml Output Total 580 ml 700 ml 830 ml Balance 60 ml 218 ml -265 ml Result Diagram: 01/24/16 0509 01/24/16 0400 Other Results Laboratory Tests Test 01/23/16 18:30 Blood Gas Puncture Site LT RADIAL Blood Gas Patient Temperature 98.6 Blood Gas HCO3 22 mmol/L (22-26) Blood Gas Base Excess -3.3 mmol/L (-2-2) Blood Gas Oxygen Saturation 90 % (90-100) Arterial Blood pH 7.33 (7.380-7.420) Arterial Blood Partial 42 mmHg (38-42) Pressure CO2 Arterial Blood Partial 64 mmHg Pressure O2 (61-120) Arterial Blood Oxygen Content 10.7 Vol % (12.0-20.0) Arterial Blood 1.4 % (0-4) Carboxyhemoglobin Arterial Blood Methemoglobin 0.6 % (0-2) Blood Gas Hemoglobin 8.4 G/DL (12.0-16.0) Oxygen Delivery Device VENTILATOR Blood Gas Ventilator Setting CPAP/8IPAP/5EPAP Blood Gas Inspired Oxygen 40 % Imaging Last Impressions Abdomen/Pelvis CT 01/23/16 0800 Signed Impressions: Service Date/Time: Saturday, January 23, 2016 09:05 - CONCLUSION: Relative to the prior study the marked distention of the stomach is reduced. There is a persistent 5 cm left upper quadrant sub-diaphragmatic fluid collection and drain in the left upper quadrant. Patient is post splenectomy. Jejunostomy is in place and ostomy is noted in the right lower abdomen. No free fluid or free air is appreciated and there is no evidence of obstruction. Bilateral pleural effusions persists small but slightly larger on the right with left lower lobe consolidation. Jared Medina MD ADDENDUM: I have reviewed the images with respect to her request made for left subdiaphragmatic drainage of a fluid collection. No fluid collection is observed within the left upper quadrant. There is residual splenic tissue that measures 5 cm in diameter with Hounsfield units 62. The stomach fundus extends up into the subdiaphragmatic location. No subdiaphragmatic fluid collection is observed. Surgical drains are noted. Osmar Chavez Jr., MD Upper Extremity Ultrasound 01/23/16 0600 Signed Impressions: Service Date/Time: Saturday, January 23, 2016 11:29 - CONCLUSION: Normal examination. No evidence DVT Jared Medina MD Chest X-Ray 01/21/16 0600 Signed Impressions: Service Date/Time: Thursday, January 21, 2016 05:12 - CONCLUSION: 1. Cardiomegaly and left retrocardiac/basilar density. 2. Slight interstitial prominence. Wojciech Lockhart MD Chest CT 01/05/16 0000 Signed Impressions: Service Date/Time: Tuesday, January 05, 2016 23:15 - CONCLUSION: 1. Persistent left lower lobar consolidation. Improved consolidative infiltrates in the right lower lung. 2. Interval increase size bilateral pleural effusions , left greater than right. Osmar Alegria MD Celiac/Hepatic Arteriogram 12/27/15 0000 Signed Impressions: Service Date/Time: December 13:41 - CONCLUSION: 1. No active GI bleed identified. Robert Mckinney MD Abdomen X-Ray 12/18/15 0000 Signed Impressions: Service Date/Time: Friday, December 18, 2015 16:05 - CONCLUSION: Feeding tube tip is at the gastric antrum. Arnaldo Elias MD Head CT 12/02/15 1013 Signed Impressions: Service Date/Time: Wednesday, December 02, 2015 11:00 - CONCLUSION: 1. No intracranial abnormality is seen. 2. Air-fluid level in the right maxillary sinus. Arnaldo Reyes MD Last Impressions Abdomen/Pelvis CT 01/23/16 0800 Signed Impressions: Service Date/Time: Saturday, January 23, 2016 09:05 - CONCLUSION: Relative to the prior study the marked distention of the stomach is reduced. There is a persistent 5 cm left upper quadrant sub-diaphragmatic fluid collection and drain in the left upper quadrant. Patient is post splenectomy. Jejunostomy is in place and ostomy is noted in the right lower abdomen. No free fluid or free air is appreciated and there is no evidence of obstruction. Bilateral pleural effusions persists small but slightly larger on the right with left lower lobe consolidation. Jared Medina MD Upper Extremity Ultrasound 01/23/16 0600 Signed Impressions: Service Date/Time: Saturday, January 23, 2016 11:29 - CONCLUSION: Normal examination. No evidence DVT Jared Medina MD Chest X-Ray 01/21/16 0600 Signed Impressions: Service Date/Time: Thursday, January 21, 2016 05:12 - CONCLUSION: 1. Cardiomegaly and left retrocardiac/basilar density. 2. Slight interstitial prominence. Wojciech Lockhart MD Chest CT 01/05/16 0000 Signed Impressions: Service Date/Time: Tuesday, January 05, 2016 23:15 - CONCLUSION: 1. Persistent left lower lobar consolidation. Improved consolidative infiltrates in the right lower lung. 2. Interval increase size bilateral pleural effusions , left greater than right. Osmar Alegria MD Celiac/Hepatic Arteriogram 12/27/15 0000 Signed Impressions: Service Date/Time: December 13:41 - CONCLUSION: 1. No active GI bleed identified. Robert Mckinney MD Abdomen X-Ray 12/18/15 0000 Signed Impressions: Service Date/Time: Friday, December 18, 2015 16:05 - CONCLUSION: Feeding tube tip is at the gastric antrum. Arnaldo Elias MD Head CT 12/02/15 1013 Signed Impressions: Service Date/Time: Wednesday, December 02, 2015 11:00 - CONCLUSION: 1. No intracranial abnormality is seen. 2. Air-fluid level in the right maxillary sinus. Arnaldo Reyes MD Last 48 hours Impressions Chest X-Ray 01/07/16 0000 Signed Impressions: Service Date/Time: Thursday, January 07, 2016 04:23 - CONCLUSION: Worsening consolidation or atelectasis at the left mid and lower lung. Some degree of left effusion may also be contributing to this. Arnaldo Reyes MD Chest X-Ray 01/06/16 0000 Signed Impressions: Service Date/Time: Wednesday, January 06, 2016 19:46 - CONCLUSION: 1. Basilar airspace disease improved from January 04. Tracheostomy and right central line in satisfactory position. Nomi Falcon MD Abdomen/Pelvis CT 01/06/16 0000 Signed Impressions: Service Date/Time: Wednesday, January 06, 2016 22:07 - CONCLUSION: 1. Over the last day there is development of a large mass in the left upper quadrant measuring up to 18 x 13 cm which appears to be associated with the stomach. The mass is characterized by somewhat concentric areas of decreased and increased attenuation with multiple locules of air. Primary differential diagnosis is hemorrhage into the gastric wall with gastric pneumatosis and possibly gastric ischemia. Gastrostomy is again noted anteriorly. 2. Remainder the exam is relatively stable with drainage tube left upper quadrant, splenectomy, bilateral effusions, feeding jejunostomy and drain within the pelvis. There is also diffuse anasarca and nonobstructing renal calculi. Nomi Falcon MD Last Impressions Chest X-Ray 12/17/15 0600 Signed Impressions: Service Date/Time: Thursday, December 17, 2015 03:25 - CONCLUSION: Persistent left lower lobe consolidation. Osmar Alegria MD Chest CT 12/14/15 0000 Signed Impressions: Service Date/Time: Monday, December 14, 2015 06:12 - CONCLUSION: 1. Cardiomegaly with bilateral consolidation, likely CHF. Pneumonia cannot be excluded. 2. Small right pleural effusion. Wojciech Lockhart MD Abdomen X-Ray 12/06/15 0000 Signed Impressions: Service Date/Time: November 09:53 - CONCLUSION: Nonspecific KUB. Air is seen within a mildly distended colon but contrast is clearly seen in the rectum. Arnaldo Reyes MD Abdomen/Pelvis CT 12/04/15 0000 Signed Impressions: Service Date/Time: Friday, December 04, 2015 16:24 - CONCLUSION: 1. Mildly distended small bowel in the mid and lower abdomen. Contrast is clearly seen extending into the distal small bowel and ascending colon so a complete obstruction is not seen. A transition point is not seen. This pattern likely represents an ileus versus a partial obstruction. 2. Multiple nonobstructing renal stones. 3. Abnormal appearance of the spleen which appears to represent a splenule. It could be correlated if the patient has had either primary splenic removal or splenic injury and this is what is either left of the spleen or a developing splenule. This is likely of no significance. 4. Mild ascites. 5. Increased density within the gallbladder representing either tumefactive sludge or noncalcified stones. 6. Mild bilateral pleural effusions with prominent areas of lower lobe atelectasis or consolidation at the bases bilaterally. 7. Subacute to chronic bilateral rib fractures and multiple compression fractures in the lower thoracic and lumbar spine as described above. The patient does have a prior CT examination from 08/26/2014. All the compression deformities described above are new when compared to that scan. Arnaldo Reyes MD Head CT 12/02/15 1013 Signed Impressions: Service Date/Time: Wednesday, December 02, 2015 11:00 - CONCLUSION: 1. No intracranial abnormality is seen. 2. Air-fluid level in the right maxillary sinus. Arnaldo Reyes MD Objective Remarks Jevity 1.5 @ 60 mL per hour,Beneprotein BID GENERAL: Middle-aged chronically critically ill-appearing male, lying in bed, on Tpiece via trach. HEENT: NCAT. mucous membranes moist. NECK: trach in place. RESPIRATORY: On Tpiece, . Breath sounds present bilaterally clear to auscultation, no wheezing . CARDIOVASCULAR: regular, tachycardic ~95-104. Sinus tach on monitor. No murmurs rubs or gallops. GASTROINTESTINAL: J tube in place with tube feeds running . Gauze dressings in place inferior aspect of midline incision. L side BEV drain in mid lower abdomen with with cloudy/darker drainage. R BEV mid lower abdomen with serous drainage. Ostomy with soft ,melena noted. Normoactive bowel sounds. MUSCULOSKELETAL: Generalized anasarca, pitting edema 2+ bilateral feet. Multiple open wounds in the lower extremity, without exudate NEURO: Awake, opens eyes spontaneously, makes eye contact . Moves bilateral feet to commands. 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 - Tylenol 650mg per tube q6h discontinued 01/15 - Dilaudid 2mg Iv q4h prn for breakthrough pain. - oxycodone 20mg per tube q4h scheduled Respiratory Acute respiratory failure-extubated 12/16/15, reintubated for surgery 12/18 Acute hypoxic and hypercarbic respiratory failure Acute healthcare associated pneumonia- resolved NIGEL on home CPAP -Maintain O2 sat greater than 92%, O2 sat on T piece and CPAP trials 94-97% - Perc Tracheostomy 12/27 (Dr. Miller). Trach exchanged 8.0 shiley with cuff on 01/19. - Vent bundle. Head of bed at 30 degrees. Duoneb q6h and prn. - Continue Tpiece trials duration of Tpiece trials to 4 hours then return to CPAP 4 hr.,( 4 hrs TID) --CXR 01/15 - L pleural effusion. 01/21 Left basilar density -CT 01/22 small B/L pleural effusions L> R -. Continue fluid mobilization with lasix. CV Hemorrhagic shock- resolved Septic Shock- resolved Volume overload Hypertension Tachycardia - Maintain MAP > 65 mmHg. - Cortisol level 14 on 12/14 - Stopped stress dose hydrocortisone on 01/12 and started prednisone 10 mg daily 01/13. If hemodynamics changing or if returns to OR would need stress dose hydrocortisone again. - Echo 12/07 EF 65-70%, grade I diastolic dysfunction. - Metoprolol 25 every 8 hours( begun 01/22) FENRenal: DEIRDRE Hypernatremia (resolved) Hypophosphatemia Anasarca, third spacing. Severe hypoalbuminemia - Hypernatremia resolved . Na 145 Free water flushes, decreased to every 12 hours. We'll continue to monitor -Creatinine. Urine eos negative. Off vancomycin. Avoid nephrotoxins. -Monitor BMP -Multivitamin q/day -Albumin 1.1 GI Acute GIB, hemorrhagic shock (resolved, now with recurrent anemia but not shock) Perforated right colon with colitis s/p ex-lap, extended right hemicolectomy with primary ileocolic anastamosis, washout, open abdomen (12/18) s/p Ex lap 01/05 for bleeding gastric ulcer Acute protein calorie malnutrition- severe Chronic hepatitis C s/p interferon/ribavirin years ago. Liver biopsy 04/14/08 Melena-resolved 01/22 Severe protein calorie malnutrition - EGD 12/26/15 showed 2 large gastric ulcers with active bleeding status post epinephrine infusion and cauterization - OR on 12/24 with Removal of VAC, washout, pancreatic drain and pelvic drain placement, gastrostomy, feeding jejunostomy and closure of abdomen with application of VAC device in the subcutaneous tissue. -to OR 01/05 with GI bleeding and hemorrhagic shock. Had bleeding gastric ulcer and pneumatosis of stomach. Underwent gastrotomy with ligation of gastric ulcer , lysis of adhesions, wound VAC placement -01/16 Endoscopy showed - ulcers at antrum and cardia without stigmata of bleeding and no exposed vessel. Granulation tissue at suture line without bleeding. Small ulceration there also without bleeding. Duodenum normal. At low risk for UGI bleeding per GI, okay for anticoagulation from their point of view. Avoid NSAIDS/ASA. NGT removed 01/16, to remain out per GI; Dr. Sanchez. Repeat EGD in 2 months ( Mar)per GI recs. -Prior TPN stopped 01/01. Again on TPN 01/08-01/14. -Continue Protonix 40 g IV q12h -Continue Jevity 1.5 goal rate at 60 mL per hour per nutrition/ GI recommendations. -CT abdomen pelvis without contrast reevaluated by Radiology 01/23 No noted 5 cm left upper quadrant subdiaphragmatic fluid collection, assessment by IR cancelled -Albumin 1.1 will increase Beneprotein 1 packet QID followed by flush of 30 cc H2O with each dose Heme: Acute Anemia secondary to acute blood loss Thrombocytopenia Hypofibrinogenemia secondary to consumption and acute blood loss Coagulopathy secondary to consumption and acute blood loss --monitor CBC --Hep PLT ab negative on 12/03 - Ferrous Sulfate 300mg bid - transfused 3 units PRBCs 01/05- -Hgb of 6.6 on 01/16 was a lab error. The hemoglobin was 8.2 on recheck without any transfusion provided. -Hgb 8.6 stable ID Severe sepsis Necrotizing Fascitis - MSSA on wound culture 12/07. Ecoli bacteremia 12/01 MSSA bacteremia 12/05. Cleared on f/u blood culture 12/07, 12/12. Candidemia (blood culture 01/04 with Nava parapsilosis) Sepsis of Intra-abdominal origin. C. difficile toxic megacolon (based on pathology C diff vs ischemia, C diff test negative) Bacteremia- gram positive cocci 01/21 --Debridement 12/01 p.m at bedside by Dr Pedro and Dr. Hartmann --R hand, forearm and olecranon bursa I and D and Wound vac 12/07 Dr Chavez. -- ABX per ID: Now on Fluconazole alone 01/09 #11 Previously: cefepime 12/17-01/16,flagyl IV 12/17-01/16 , Vancomycin 01/04-01/16 ( trough 20 on 01/15). Micafungin stopped per ID 01/08. Amphotericin B started by ID on 01/08 and stopped 01/09. Nava parapsilosis in blood culture from 01/04 most likely from an intra- abdominal source(central line was changed on 01/04). Last set of blood cultures have been negative. BEV drain with cloudy drainage 01/14, now clear serous. General surgery aware and following. Noted WBC 18 from 19, if continues uptrend or if evidence of recurrent sepsis off abx, will discuss repeat CT abd/pelvis with surgery. Seen by Dr. Wu 01/13 and no evidence of endogenous fungal endophthalmitis ID following, Dr. Becerra 01/23 blood culture -staph hemolyticus 01/22 noted oral thrush- Nystatin 5 ml QID (swish and spit) Wound care following for wounds- Wound vac discontinued 01/21 -Plastic Surgery requested for reassessment of LUE and skin care protocol for left arm 01/20, following recommendations --12/17 blood cultures: NGTD 12/17 central line culture: NGTD 12/17 urine cultures: NGTD 12/17 sputum cultures: NGTD C. difficile toxin 12/17: Negative (3rd negative toxin screen) -01/04 Blood culture with nava parapsilosis 01/04: horn culture, bronch with BAL, 01/04: CT chest/abd/pelvis without contrast: LLL consolidation, otherwise unchanged. 01/04: clinically LLL VAP. 01/08 Blood cultures: no growth 01/09 blood culture peripheral - NGTD 01/12 sputum cutlure - neg 01/12 - urine culture NGTD. 01/23- Bld culture-Staph hemolyticus 01/22- Oral Thrush Endocrine: Hyperglycemia of Critical Illness Diabetes - off Insulin drip - Levemir BID on hold. - On low-dose insulin sliding scale with bedside glucose every 6 hours, not requiring coverage. Glucose at 90 - Prednisone 10mg po daily since 01/13. Previously was on prednisone as an outpatient. Has been on hydrocortisone intermittently when he has gone to the OR or decompensated. - Tube feeding resumed Jevity 1.5 @ 60cc/hr resumed MSK: -Daily functional maintenance of extremities x 4 -US LUE 01/22- negative for DVT -Multi-Podis soft boots prevent foot drop -PT eval and treat -OOB to recliner chair Prophylaxis: GI Prophylaxis: -- Protonix IV BID DVT Prophylaxis: - SCDs Heparin SQ 5000 u BID to /8 ACCESS: --PIV x 2. Right IJ TLC 01/04-01/15 #12. PT/OT. OOB. Telephoned Ms. Clemencia Smith and updated her with information .Discussed with [employer] TECHNICIAN at bedside. This patient remains critically ill with one or more organ systems which are or may become a threat to life. I have spent in excess of 31 minutes discontinuously in the care and management of this patient. This time is exclusive of procedures, and includes, but is not limited to, evaluation of the patient, review of the medical record, discussions with family, consultants, nursing staff, or respiratory therapy, and documentation in the medical record. Physician Fe Poole Problem Qualifiers (1) Respiratory failure: Qualified Code: J96.00 - Acute respiratory failure, unspecified whether with hypoxia or hypercapnia (2) Altered mental status: Qualified Code: R41.0 - Delirium (3) Sepsis: Qualified Code: A41.9 - Sepsis, due to unspecified organism Fe Poole MD Jan 24, 2016 13:33 Fe Poole MD Jan 24, 2016 13:33
--- NOTE | 2016-01-24 14:40 | HHI.HCPN ---
Reason for visit a. To assist with evaluation and management of symptoms including: pain, encephalopathy, malnutrition, wounds b. To assist medical decision maker(s) with: better understanding of current medical conditions; weighing benefits/burdens of medical treatment options; making medical treatment decisions. . Subjective/Interval History Patient seen and assessed in room 1317. Patient lying in bed, showing no signs of acute distress. Awake and alert. Attempting to mouth words in response to questions. Wound vac to right arm was discontinued, dressing on upper and lower extremities bilaterally c/d/i. Having continued intermittent tachycardia and tachypnea. Patient had one episode of elevated blood pressure overnight which resolved with Hydralazine 20mg x 1. Trach to T- piece. FiO2 35% with oxygen saturations 95% to 100%. Afebrile. WBC 11.9 ( previously 12.6 on 01/23/16), Hgb 11.9 (previously 7.6 on 01/23/16), Hct 26.3, Platelets 153. Follow chest x-ray on 01/21/16 showing cardiomegaly with left retrocardiac/basilar density, slight interstitial prominence. 01/23/16 CT abdomen: Relative to prior study in this marked distention of the stomach is reduced, there is a persistent 5 cm left upper quadrant subdiaphragmatic fluid collection and drain in the left upper quadrant; patient is post splenectomy; jejunostomy is in place and ostomy is noted in the right lower abdomen; no free fluid or free air is appreciated and there is no evidence of obstruction; bilateral pleural effusions persist small but slightly larger on the right with left lower lobe consolidation. Patient was scheduled to go to IR for drainage of left upper quadrant fluid collection, but when imaging was reevaluated by radiologyno fluid collection was noted in the left upper quadrant. DVT prophylaxis and heparin were resumed. Tube feeding resumed, Jevity 1.5 @ 60cc/hr. 01/19/16: Total protein 4.7 and Albumin 1.1. Family/friend interactions Spoke to patient's , Gopi, to notify her the patient would not be going to IR today as planned. Tube feeding were restarted and DVT prophylaxis, heparin resumed. . Advance Directives Living Will: Never completed Health Care Surrogate: Never completed Durable Power of Graphic Arts Technician: Never completed Advance Directive Specifics Health Care Surrogate(s): There is no designated health care surrogate. Per [place] statutes, in the absence of written advanced directives healthcare proxy falls to the patient's , Gopi Smith. . Documented care wishes: None available , Objective Vital Signs Date Time Temp Pulse Resp B/P Pulse Ox O2 Delivery O2 Flow Rate FiO2 01/24/16 12:00 35 01/24/16 11:30 100 35 01/24/16 10:32 25 01/24/16 10:32 25 01/24/16 08:00 115 01/24/16 08:00 40 01/24/16 07:41 100 T-piece 4.00 40 01/24/16 06:00 111 01/24/16 04:00 35 01/24/16 04:00 120 01/24/16 04:00 97.7 120 14 148/81 97 01/24/16 03:36 97 35 01/24/16 02:00 108 01/24/16 01:21 100 30 01/24/16 00:00 97.4 102 16 179/79 100 01/24/16 00:00 35 01/24/16 00:00 102 01/23/16 22:00 108 01/23/16 20:00 97.4 108 16 149/79 99 01/23/16 20:00 35 01/23/16 20:00 108 01/23/16 19:36 100 35 01/23/16 18:00 118 01/23/16 17:46 40 01/23/16 17:42 100 40 01/23/16 16:00 28 01/23/16 16:00 108 01/23/16 16:00 97.4 108 24 180/90 99 01/23/16 15:48 100 T-piece 40 01/23/16 14:00 104 Intake & Output 01/24/16 01/24/16 07:00 19:00 Intake Total 812 ml Output Total 1550 ml Balance -738 ml IV Total 166 ml Tube Feeding 646 ml Output Urine Total 1250 ml Stool Total 250 ml Drainage Total 50 ml . Physical Exam CONSTITUTIONAL/GENERAL: This is a critically ill middle-aged male patient in NAD TUBES/LINES/DRAINS: PIV 2, central line, BEV 2, ostomy, trach, Sandoval, wound VAC , NGT SKIN: Ecchymoses on upper extremities, multiple skin tears.Wounds scabbed on knuckles of right hand. Wound vas right arm discontinued. HEAD: Atraumatic. Normocephalic. EYES: No injection or drainage. Fundi not examined. ENT: Hearing appears normal. Nose without bleeding or purulent drainage. NECK: Trachea midline. CARDIOVASCULAR: Intermittently tachycardic. No murmurs, gallops, or rubs. No JVD. RESPIRATORY/CHEST: Intermittently tachypnea. Breath sounds diminished bilaterally. GASTROINTESTINAL: BEV drain x2 with serous/sedimentary output. Tolerating TF. GENITOURINARY: Without palpable bladder distension. Sandoval catheter in place. MUSCULOSKELETAL: Extremities without clubbing or cyanosis. Atrophy. NEUROLOGICAL: Awake and alert. Mouthing words, attempt to move upper extremities on command. PSYCHIATRIC: No anxiety or agitation observed. . Diagnostic Tests Laboratory Laboratory Tests Test 01/22/16 01/23/16 01/23/16 01/24/16 03:53 04:04 18:30 04:00 White Blood Count 16.0 TH/MM3 12.6 TH/MM3 (4.0-11.0) (4.0-11.0) Red Blood Count 2.74 MIL/MM3 2.61 MIL/MM3 (4.50-5.90) (4.50-5.90) Hemoglobin 8.1 GM/DL 7.6 GM/DL (13.0-17.0) (13.0-17.0) Hematocrit 24.7 % 23.8 % (39.0-51.0) (39.0-51.0) Mean Corpuscular Volume 89.9 FL 91.1 FL (80.0-100.0) (80.0-100.0) Mean Corpuscular Hemoglobin 29.4 PG 29.2 PG (27.0-34.0) (27.0-34.0) Mean Corpuscular Hemoglobin 32.7 % 32.1 % Concent (32.0-36.0) (32.0-36.0) Red Cell Distribution Width 18.2 % 18.8 % (11.6-17.2) (11.6-17.2) Platelet Count 144 TH/MM3 134 TH/MM3 (150-450) (150-450) Mean Platelet Volume 9.8 FL 9.8 FL (7.0-11.0) (7.0-11.0) Neutrophils (%) (Auto) 78.4 % 76.0 % (16.0-70.0) (16.0-70.0) Lymphocytes (%) (Auto) 10.5 % 12.3 % (9.0-44.0) (9.0-44.0) Monocytes (%) (Auto) 9.7 % (0.0-8.0) 9.9 % (0.0-8.0) Eosinophils (%) (Auto) 1.0 % (0.0-4.0) 1.2 % (0.0-4.0) Basophils (%) (Auto) 0.4 % (0.0-2.0) 0.6 % (0.0-2.0) Neutrophils # (Auto) 12.5 TH/MM3 9.6 TH/MM3 (1.8-7.7) (1.8-7.7) Lymphocytes # (Auto) 1.7 TH/MM3 1.5 TH/MM3 (1.0-4.8) (1.0-4.8) Monocytes # (Auto) 1.6 TH/MM3 1.2 TH/MM3 (0-0.9) (0-0.9) Eosinophils # (Auto) 0.2 TH/MM3 0.1 TH/MM3 (0-0.4) (0-0.4) Basophils # (Auto) 0.1 TH/MM3 0.1 TH/MM3 (0-0.2) (0-0.2) CBC Comment AUTO DIFF AUTO DIFF Differential Total Cells 100 100 Counted Neutrophils % (Manual) 80 % (16-70) 75 % (16-70) Band Neutrophils % 2 % (0-6) 10 % (0-6) Lymphocytes % 3 % (9-44) 10 % (9-44) Monocytes % 7 % (0-8) 1 % (0-8) Basophils % 1 % (0-2) 1 % (0-2) Neutrophils # (Manual) 14.2 TH/MM3 11.0 TH/MM3 (1.8-7.7) (1.8-7.7) Metamyelocytes 4 % (0-1) 2 % (0-1) Myelocytes 2 % (0-0) Promyelocytes 1 % (0-0) Differential Comment FINAL DIFF FINAL DIFF MANUAL MANUAL Platelet Estimate LOW (NORMAL) LOW (NORMAL) Platelet Morphology Comment ENLARGED NORMAL (NORMAL) (NORMAL) Sodium Level 143 MEQ/L 144 MEQ/L 145 MEQ/L (136-145) (136-145) (136-145) Potassium Level 4.2 MEQ/L 4.2 MEQ/L 4.8 MEQ/L (3.5-5.1) (3.5-5.1) (3.5-5.1) Chloride Level 111 MEQ/L 110 MEQ/L 112 MEQ/L (98-107) (98-107) (98-107) Carbon Dioxide Level 19.8 MEQ/L 23.8 MEQ/L 22.5 MEQ/L (21.0-32.0) (21.0-32.0) (21.0-32.0) Anion Gap 12 MEQ/L (5-15) 10 MEQ/L (5-15) 11 MEQ/L (5-15) Blood Urea Nitrogen 82 MG/DL (7-18) 77 MG/DL (7-18) 67 MG/DL (7-18) Creatinine 1.76 MG/DL 1.54 MG/DL 1.18 MG/DL (0.60-1.30) (0.60-1.30) (0.60-1.30) Estimat Glomerular Filtration 41 ML/MIN (>89) 47 ML/MIN (>89) 65 ML/MIN (>89) Rate Random Glucose 130 MG/DL 122 MG/DL 90 MG/DL (74-106) (74-106) (74-106) Calcium Level 7.7 MG/DL 7.7 MG/DL 8.0 MG/DL (8.5-10.1) (8.5-10.1) (8.5-10.1) Phosphorus Level 4.8 MG/DL 4.3 MG/DL 3.3 MG/DL (2.5-4.9) (2.5-4.9) (2.5-4.9) Magnesium Level 1.9 MG/DL 1.8 MG/DL 1.6 MG/DL (1.5-2.5) (1.5-2.5) (1.5-2.5) Eosinophils % 1 % (0-4) Stomatocytes 1+ (NORMAL) Blood Gas Puncture Site LT RADIAL Blood Gas Patient Temperature 98.6 Blood Gas HCO3 22 mmol/L (22-26) Blood Gas Base Excess -3.3 mmol/L (-2-2) Blood Gas Oxygen Saturation 90 % (90-100) Arterial Blood pH 7.33 (7.380-7.420) Arterial Blood Partial 42 mmHg (38-42) Pressure CO2 Arterial Blood Partial 64 mmHg Pressure O2 (61-120) Arterial Blood Oxygen Content 10.7 Vol % (12.0-20.0) Arterial Blood 1.4 % (0-4) Carboxyhemoglobin Arterial Blood Methemoglobin 0.6 % (0-2) Blood Gas Hemoglobin 8.4 G/DL (12.0-16.0) Oxygen Delivery Device VENTILATOR Blood Gas Ventilator Setting CPAP/8IPAP/5EPAP Blood Gas Inspired Oxygen 40 % Test 01/24/16 05:09 White Blood Count 11.9 TH/MM3 (4.0-11.0) Red Blood Count 2.90 MIL/MM3 (4.50-5.90) Hemoglobin 8.6 GM/DL (13.0-17.0) Hematocrit 26.3 % (39.0-51.0) Mean Corpuscular Volume 90.6 FL (80.0-100.0) Mean Corpuscular Hemoglobin 29.5 PG (27.0-34.0) Mean Corpuscular Hemoglobin 32.5 % Concent (32.0-36.0) Red Cell Distribution Width 18.5 % (11.6-17.2) Platelet Count 153 TH/MM3 (150-450) Mean Platelet Volume 9.6 FL (7.0-11.0) . Result Diagram: 01/24/16 0509 01/24/16 0400 Imaging Last Impressions Abdomen/Pelvis CT 01/23/16 0800 Signed Impressions: Service Date/Time: Saturday, January 23, 2016 09:05 - CONCLUSION: Relative to the prior study the marked distention of the stomach is reduced. There is a persistent 5 cm left upper quadrant sub-diaphragmatic fluid collection and drain in the left upper quadrant. Patient is post splenectomy. Jejunostomy is in place and ostomy is noted in the right lower abdomen. No free fluid or free air is appreciated and there is no evidence of obstruction. Bilateral pleural effusions persists small but slightly larger on the right with left lower lobe consolidation. Jared Medina MD ADDENDUM: I have reviewed the images with respect to her request made for left subdiaphragmatic drainage of a fluid collection. No fluid collection is observed within the left upper quadrant. There is residual splenic tissue that measures 5 cm in diameter with Hounsfield units 62. The stomach fundus extends up into the subdiaphragmatic location. No subdiaphragmatic fluid collection is observed. Surgical drains are noted. Osmar Chavez Jr., MD Upper Extremity Ultrasound 01/23/16 0600 Signed Impressions: Service Date/Time: Saturday, January 23, 2016 11:29 - CONCLUSION: Normal examination. No evidence DVT Jared Medina MD Chest X-Ray 01/21/16 06 Signed Impressions: Service Date/Time: Thursday, January 21, 2016 05:12 - CONCLUSION: 1. Cardiomegaly and left retrocardiac/basilar density. 2. Slight interstitial prominence. Wojciech Lockhart MD Chest CT 01/05/16 0000 Signed Impressions: Service Date/Time: Tuesday, January 05, 2016 23:15 - CONCLUSION: 1. Persistent left lower lobar consolidation. Improved consolidative infiltrates in the right lower lung. 2. Interval increase size bilateral pleural effusions , left greater than right. Osmar Alegria MD Celiac/Hepatic Arteriogram 12/27/15 0000 Signed Impressions: Service Date/Time: December 13:41 - CONCLUSION: 1. No active GI bleed identified. Robert Mckinney MD Abdomen X-Ray 12/18/15 0000 Signed Impressions: Service Date/Time: Friday, December 18, 2015 16:05 - CONCLUSION: Feeding tube tip is at the gastric antrum. Arnaldo Elias MD Head CT 12/02/15 1013 Signed Impressions: Service Date/Time: Wednesday, December 02, 2015 11:00 - CONCLUSION: 1. No intracranial abnormality is seen. 2. Air-fluid level in the right maxillary sinus. Arnaldo Reyes MD . Procedures 12/02/15: Intubated 12/02/15: NG tube placed 12/02/15: Right subclavian central line placed 12/14/15: Left IJ central line placement BEV PEG tube Ileostomy 12/28/15: Tracheostomy 12/30/15: Right subclavian central venous line placed 01/05/16: Right axillary arterial line placement 01/05/16: Right IJ central line placement 01/05/16: Bronchoscopy 01/17/16: EGD . . . 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 Probable causes of plain include multiple surgeries, invasive lines ( central line, PIV), Sandoval, BEV drains, ostomy, NG tube, tracheostomy, immobility , bedbound status etc. Patient receives oxycodone 20mg PO every 4 hours ATC , acetaminophen 650 mg PO q6 hours ATC and Duragesic patch 75 g every 72 hours. Additionally PRN hydromorphone 2mg IV is available every 2 hours, patient is using sparingly (1 doses of hydromorphone were administered in the past 24 hours.) . (2) Malnutrition 0-10 Scale: Unable to quantify Comment: Tube feeding resumed, Jevity 1.5 @ 60cc/hr. 01/19/16: Total protein 4.7 and Albumin 1.1. (3) Encephalopathy 0-10 Scale: Unable to quantify (4) Wounds, multiple Comment: Wound vac to right arm discontinued 01/24/16. Wound care following. Dressings on upper and lower extremities bilaterally c/d/i. . Pertinent Non-Medical Issues Psychosocial:Patient was born in [facility], moving to [place] at a young age. He has 2 siblings who live locally (Feroz and Janeen). 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 The patient met his current (Gopi Smith) through mutual friends and they have now been for approximately 20 years. The patient has 1 adult daughter (Kezia) from a previous relationship. She is 30 years old. Spiritual:No latter-day affiliation Legal: There is no designated health care surrogate. Per [place] statutes, in the absence of written advanced directives healthcare proxy falls to the patient 's , Gopi Smith. Ethical issues impacting care: None at this time. . Important Contacts Gopi Smith, spouse: [phone] Kezia Starks, daughter: [phone] . . Prognosis Patient is a 55 year old male with a long history of chronic illnesses. PMH is significant for Hep C, NIGEL, gout, RA, HTN, chronic pain, and migraines. Patient was admitted on 12/02/15 with sepsis due to Staph Aureus hand infection and E. Coli bacteriemia. Patient has been to the OR multiple times for GI bleed. Patient has had persistent anemia/thrombocytopenia requiring multiple transfusions. S/p tracheotomy, ileostomy, BEV 2, and G- tube, patient remains critically ill with an overall poor prognosis. . Code Status: Full Code Plan * FULL CODE * Decision-making: The patient is currently not capacitated to participate in decisions related to medical treatment goals. There is no designated health care surrogate. Per [place] statutes, in the absence of written advanced directives healthcare proxy falls to the patient's . HCP: GOPI SMITH ( ). * Goals: GOALS REMAIN AGGRESSIVE. However, patient's daughter and agree the patient would not want to be kept alive on machines. They do not feel he is at the point where they need to consider stopping care because he has "gotten through so much are ready". * Patient will require placement at a SNF for rehabilitation upon discharge. Patient is self pay, medicaid/SSI pending. * Symptom managementpain: Patient has a history of chronic pain, takes methadone and MS Contin at home. Probable causes of plain include multiple surgeries, invasive lines (central line, PIV), Sandoval, BEV drains, ostomy, NG tube , tracheostomy, immobility, bedbound status etc. Patient receives oxycodone 20mg PO every 4 hours ATC , acetaminophen 650 mg PO q6 hours ATC and Duragesic patch 75 g every 72 hours. Additionally PRN hydromorphone 2mg IV is available every 2 hours, patient is using sparingly (1 doses of hydromorphone were administered in the past 24 hours.). Palliative care will monitor PRN requirements and make adjustments as indicated. * Symptom managementmalnutrition: Tube feeding resumed, Jevity 1.5 @ 60cc/hr. 01/19/16: Total protein 4.7 and Albumin 1.1. * Symptom managementwounds: Wound vac to right arm discontinued 01/24/16. Wound care following. Dressings on upper and lower extremities bilaterally c/d/i * Ultrasound left arm: negative for DVT * 01/23/16: CT abdomen: Relative to prior study in this marked distention of the stomach is reduced, there is a persistent 5 cm left upper quadrant subdiaphragmatic fluid collection and drain in the left upper quadrant; patient is post splenectomy; jejunostomy is in place and ostomy is noted in the right lower abdomen; no free fluid or free air is appreciated and there is no evidence of obstruction; bilateral pleural effusions persist small but slightly larger on the right with left lower lobe consolidation. Patient was scheduled to go to IR for drainage of left upper quadrant fluid collection, but when imaging was reevaluated by radiologyno fluid collection was noted in the left upper quadrant. DVT prophylaxis and heparin were resumed. * Palliative care will continue to follow this patient throughout his hospitalization to establish trust, assist with symptom management and clarification of medical treatment goals. . Attestation To help prompt me to consider important information that might be impacting today's encounter and assessment, information from prior notes written by myself or my colleagues may have been "brought forward" into today's note. My signature on this note, however, is an attestation that I personally performed the exam, history, and/or decision-making noted today, and, unless otherwise indicated, the interactions with patient, family, and staff as well as the review of records all occurred today. I also attest that the listed assessment and stated plan reflect my best clinical judgment today based on the combination of historical information, prior notes, and today's exam/ interactions. When time spent is documented, it refers only to time spent today by the signer, or if indicated, combined time spent today by collaborating physician/nurse practitioner. . Leah Pop Jan 24, 2016 14:40
[2016-01-24] MEDS: hydrALAZINE HCL 20 MG/ML VIAL IV PUSH PRN (14:51)
[2016-01-24] MEDS: MAGNESIUM SULFATE 1 GM PREMIX 100 ML IV SCH ×2 (14:53→14:54)
--- NOTE | 2016-01-24 14:56 | HHI.PR ---
Subjective Subjective Notes Up to chair In good spirits Objective Vitals/I&O Vital Signs Date Time Temp Pulse Resp B/P Pulse Ox O2 Delivery O2 Flow Rate FiO2 01/24/16 12:00 35 01/24/16 11:30 100 01/24/16 10:32 25 01/24/16 08:00 115 01/24/16 07:41 T-piece 4.00 01/24/16 04:00 97.7 148/81 Labs Laboratory Tests Test 01/23/16 01/24/16 01/24/16 18:30 04:00 05:09 Blood Gas Puncture Site LT RADIAL Blood Gas Patient Temperature 98.6 Blood Gas HCO3 22 Blood Gas Base Excess -3.3 Blood Gas Oxygen Saturation 90 Arterial Blood pH 7.33 Arterial Blood Partial 42 Pressure CO2 Arterial Blood Partial 64 Pressure O2 Arterial Blood Oxygen Content 10.7 Arterial Blood 1.4 Carboxyhemoglobin Arterial Blood Methemoglobin 0.6 Blood Gas Hemoglobin 8.4 Oxygen Delivery Device VENTILATOR Blood Gas Ventilator Setting CPAP/8IPAP/5EPAP Blood Gas Inspired Oxygen 40 Sodium Level 145 Potassium Level 4.8 Chloride Level 112 Carbon Dioxide Level 22.5 Anion Gap 11 Blood Urea Nitrogen 67 Creatinine 1.18 Estimat Glomerular Filtration 65 Rate Random Glucose 90 Calcium Level 8.0 Phosphorus Level 3.3 Magnesium Level 1.6 White Blood Count 11.9 Red Blood Count 2.90 Hemoglobin 8.6 Hematocrit 26.3 Mean Corpuscular Volume 90.6 Mean Corpuscular Hemoglobin 29.5 Mean Corpuscular Hemoglobin 32.5 Concent Red Cell Distribution Width 18.5 Platelet Count 153 Mean Platelet Volume 9.6 Date/Time Procedure Status Source Growth 01/20/16 15:37 Aerobic Blood Culture - Final Resulted Blood Peripheral Staphylococcus Haemolyticus 01/20/16 15:37 Anaerobic Blood Culture - Preliminary Resulted Blood Peripheral NO GROWTH IN 4 DAYS 01/20/16 12:59 Aerobic Blood Culture - Preliminary Resulted Blood Peripheral NO GROWTH IN 4 DAYS 01/20/16 12:59 Anaerobic Blood Culture - Final Resulted Blood Peripheral QNS - SEE AEROBE REPORT Radiology Last Impressions Chest X-Ray 12/28/15 0000 Signed Impressions: Service Date/Time: Monday, December 28, 2015 14:23 - CONCLUSION: Large left pleural effusion and left lung base consolidation. Freddy Connor MD Abdomen/Pelvis CT 12/19/15 0000 Signed Impressions: Service Date/Time: Saturday, December 19, 2015 10:57 - CONCLUSION: 1. Adjacent volume pneumoperitoneum is observed consistent with perforation of a hollow viscus. This is presumably colonic in origin due to the diffuse inflammatory process involving the colon. I do not clearly identify the source of the pneumoperitoneum however. There is mild dilatation of the small bowel likely an ileus in nature. A significant volume of ascitic fluid is noted. 2. Bibasilar atelectasis and bilateral pleural effusions. 3. Small pericardial effusion. 4. Small bilateral nonobstructing renal calculi. 5. I spoke with Dr. Sanchez concerning the findings. Osmar Chavez Jr., MD Abdomen X-Ray 12/18/15 0000 Signed Impressions: Service Date/Time: Friday, December 18, 2015 16:05 - CONCLUSION: Feeding tube tip is at the gastric antrum. Arnaldo Elias MD Chest CT 12/14/15 0000 Signed Impressions: Service Date/Time: Monday, December 14, 2015 06:12 - CONCLUSION: 1. Cardiomegaly with bilateral consolidation, likely CHF. Pneumonia cannot be excluded. 2. Small right pleural effusion. Wojciech Lockhart MD Head CT 12/02/15 1013 Signed Impressions: Service Date/Time: Wednesday, December 02, 2015 11:00 - CONCLUSION: 1. No intracranial abnormality is seen. 2. Air-fluid level in the right maxillary sinus. Arnaldo Reyes MD Cardiovascular: Regular Lungs: Clear Abdomen: Other (see below), Post-op tenderness Narrative Exam RIGHT arm with wound vac on Abd: Midline incision--- packing removed and replaced to superior and inferior portion of incision; RIGHT BEV with serous drainage; LEFT with darker sedimentary drainage; ileostomy with stool A/P Problem List: (1) Dependent on ventilator (2) Open wound of abdomen (3) Ileostomy in place (4) Jejunostomy tube present (5) S/P total colectomy (6) Acute colitis (7) Gastrostomy tube in place Assessment and Plan 55 year old male s/p ex lap; s/p colectomy; G/J tube placement and would vac change -Hmg stable -Tolerating TF -Hmg stable -WBC continues to trend down -Primapore dressing BID and PRN to midline incision ----packing to superior and inferior areas of incision -Monitor BEV output and drainage color Attending Statement pt seen at bedside, doing better, wound care to abdomen Attestation The exam, history, and the medical decision-making described in the above note were completed with the assistance of the mid-level provider. I reviewed and agree with the findings presented. I attest that I had a [id number] encounter with the patient on the same day, and personally performed and documented my assessment and findings in the medical record. Problem Qualifiers (1) Open wound of abdomen: Qualified Code: S31.109D - Open wound of abdomen, subsequent encounter Lurdes Felix Jan 24, 2016 14:56 Bebo Verdin MD Feb 11, 2016 23:14
[2016-01-24] MEDS: HEPARIN SODIUM - SQ 10,000 UNITS/ML VIAL SQ SCH (21:00)
[2016-01-24] MEDS ORDERED: GELATIN 12 MM/7 MM FOAM ONE ×2 (22:10→22:12)
--- NOTE | 2016-01-24 23:29 | RADRPT ---
EXAM DATE/TIME: 01/24/2016 23:12 [facility] COMPARISON: CHEST SINGLE AP, January 21, 2016, 5:12. INDICATIONS : Evalaute trach and lungs. Bleeding from Tracheostomy site. MEDICAL HISTORY : None. SURGICAL HISTORY : None. ENCOUNTER: Initial ACUITY: 1 day PAIN SCORE: 8/10 LOCATION: Bilateral chest FINDINGS: The cardiac silhouette is enlarged in transverse diameter. A tracheostomy tube is in place in the mid line. There is left lower lobe atelectasis versus pneumonia. There is subsegmental atelectasis in the right base. There is no evidence of pneumothorax. CONCLUSION: 1. Left lower lobe atelectasis versus pneumonia. There has been no significant change when compared t o the prior exam. Tracheostomy tube is in expected position Ramone Hall MD on January 24, 2016 at 23:26 Board Certified Radiologist. This report was verified electronically.
[2016-01-25] VITALS (19 sets, daily range): BP systolic 146–179; BP diastolic 80–99; PULSE 104–122; RESP 18–30; TEMP 98–98.7; O2SAT 95–100
[2016-01-25 00:53] LABS: AUTOMATED NEUTROPHIL # 9.7 TH/MM3 (1.8-7.7); BASOPHIL # 0.1 TH/MM3 (0-0.2); BASOPHIL % 0.4 % (0.0-2.0); EOSINOPHIL % 0.4 % (0.0-4.0); HEMATOCRIT 26.1 % (39.0-51.0); LYMPH % 10.9 % (9.0-44.0); LYMPHOCYTE # 1.4 TH/MM3 (1.0-4.8); MEAN CELL VOLUME 90.7 FL (80.0-100.0); MONO % 11.5 % (0.0-8.0); NEUT % 76.8 % (16.0-70.0); PLATELET COUNT 160 TH/MM3 (150-450); RED BLOOD COUNT 2.88 MIL/MM3 (4.50-5.90); WHITE BLOOD COUNT 12.6 TH/MM3 (4.0-11.0)
[2016-01-25 01:03] LABS: HEMO FLAGS AUTO DIFF
[2016-01-25 01:08] LABS: PROTHROMBIN TIME - PATIENT 10.8 SEC (9.8-11.6)
[2016-01-25 01:36] LABS: PLATELET ESTIMATE SMEAR NORMAL (NORMAL); SCAN/DIFF AUTO DIFF CONFIRMED
[2016-01-25 01:37] LABS: PLATELET MORPHOLOGY ENLARGED (NORMAL)
[2016-01-25] MEDS: oxyCODONE HCL ORAL CONC 20 MG/ML SYRINGE PO SCH ×6 (02:25→20:24)
[2016-01-25] MEDS: RESP: ALBUTEROL 2.5 MG/IPRATROPIUM 0.5 MG NEB (SCH) NEB ×4 (03:14→21:21)
[2016-01-25] MEDS: CHLORHEXIDINE GLUCONATE 2 % 1 PACK (2 CLOTHS) TOP SCH (04:00)
[2016-01-25 05:06] LABS: HEMATOCRIT 24.6 % (39.0-51.0); MEAN CELL VOLUME 91.6 FL (80.0-100.0); MEAN CORPUSCULAR HEMOGLOBIN 29.7 PG (27.0-34.0); MEAN CORPUSCULAR HGB CONC 32.4 % (32.0-36.0); PLATELET COUNT 150 TH/MM3 (150-450); RED BLOOD COUNT 2.68 MIL/MM3 (4.50-5.90); RED CELL DISTRIBUTION WIDTH 18.4 % (11.6-17.2); REVIEW FLAG FINAL; WHITE BLOOD COUNT 12.8 TH/MM3 (4.0-11.0)
[2016-01-25 05:20] LABS: BICARBONATE 25.3 MEQ/L (21.0-32.0); MAGNESIUM 2.1 MG/DL (1.5-2.5); POTASSIUM 4.4 MEQ/L (3.5-5.1)
[2016-01-25] MEDS: INSULIN ASPART SUPPLEMENTAL SCALE SQ SCH ×4 (06:00→18:00)
[2016-01-25] MEDS: PANTOPRAZOLE SODIUM 40 MG VIAL IV PUSH SCH ×2 (06:00→18:29)
[2016-01-25] MEDS: METOPROLOL TARTRATE 25 MG TAB TUBE SCH ×3 (06:31→20:24)
[2016-01-25] MEDS: CHLORHEXIDINE 0.12% (ORAL KIT) 15 ML CUP MT SCH ×2 (08:00→20:00)
[2016-01-25] MEDS: FERROUS SULFATE 300 MG /5ML UDC TUBE SCH ×2 (08:20→20:25)
[2016-01-25] MEDS: NYSTATIN SUSP 500,000 U/5 ML CUP SWISH-SPIT SCH ×4 (08:20→20:23)
[2016-01-25] MEDS: predniSONE 10 MG TAB NG SCH (08:20)
[2016-01-25] MEDS: MULTIVITAMINS LIQUID 5 ML UDC TUBE SCH (08:20)
[2016-01-25] MEDS: HYDROmorphone HCL PF 2 MG/ML VIAL IV PUSH PRN ×5 (08:20→22:32)
[2016-01-25] MEDS: HEPARIN SODIUM - SQ 10,000 UNITS/ML VIAL SQ SCH (08:21)
[2016-01-25] MEDS: FREE WATER G-TUBE SCH ×2 (08:22→20:25)
--- NOTE | 2016-01-25 10:28 | HHI.CCPN ---
Subjective Remarks/Hospital Course 55-year-old male brought by EMS with altered mental status. He has been confused for 2 days but this morning has been the worst. He has history of chronic opiate medications including methadone and morphine that he takes for pain management and hence they gave him Narcan IV which brought the GCS up to 13. The blood glucose was 74. He has open wounds from his right upper and bilateral lower extremities. He has history of hepatitis C. Last week he was pealing and eating shrimps. Bedside blood sugar was 76 in the ER. He was tachycardic in 1 teens and was intubated in the ED for airway protection. Admitted to ICU with sepsis due to Staph Aureus hand infection and E. Coli bacteriemia. 12/05 Patient remains sedated with Fentanyl and intubated. On Levophed 3 mics, Vasopressin 0.03 mics and Bicarb drip. T:99.8 TF placed on hold OGT to LIWS last night - gastric drainage 525ml overnight. 12/06 Patient is sedated with Fentanyl and intubated, On Levophed 3 mics, off vasopressin. Gastric output 400ml in 24 hrs. KUB abdomen yesterday mildly distended colon otherwise non specific KUB. 12/07 Patient is off sedation remains intubated tolerated CPAP for most day yesterday. Afebrile. on no drips, tolerating tube feeds. 12/08 Patient went to OR yesterday for debridement and irrigation of right forearm and wound VAC placement. Given 2U PRBC and 2u PLT yesterday and currently receiving 1of 2 u additional PRBC. Hgb 7.7, PLT 43 this morning. Patient also started on pressors now on Levophed 10 mics. Vasopressin 0.04 mics. On no sedation. 12/09 Patient remains intubated off pressors, Afebrile. Tolerating tube feeds. Afebrile. 12/10 Patient is sedated with Fentanyl and intubated. Awake and follows commands off sedation. Afebrile. 12/11 Patient had ?SVT overnight given Lopressor 2.5mg IV x1, Remains intubated and sedated with Fentanyl. Afebrile. Tolerating TF. 12/12 Patient spoked fever last night with T: 101.5, sedated with Fentanyl and intubated. 12/13 Patient had an episode of desaturation overnight required increase FIO2/ PEE now on ACV with RR 14, TV 550, PEEP: 12, FIO2 60% with sats 100% CT chest performed overnight showed b/l consolidation and small pleural effusion. Had T: 100.0 last night. 12/14 Tolerating PS 15/CPAP 10 FiO2 40% with rSBI 38, weaning. . Awake and alert , following commands. Hypotensive overnight and levophed restarted up to 12 mcg/ min. Nurse has been weaning throughout the day. Suspected adrenal insufficiency as he was on prednisone as outpatient for gout and has not been on stress dose steroids. Given decadron. 12/15 Transfused 1 unit PRBC for Hgb 7.0 yesterday, 1 unit PRBC for Hgb 6.6 today and now Hgb 8.3. Does not clinically have e/o active GI bleeding and wound vac output nonbloody. Stool 1500 output, C diff negative. No abdominal pain. Remains Awake and alert, remained on CPAP 10/5 last night and is now tolerating CPAP 5/5. 12/16: Extubated yesterday tolerating well. Breathing comfortably. Able to follow commands. UO 1.8 L in 24 hours. Na slightly increased to 153. 12/17: Significantly worse this AM. WBC up to 28 from 16. Hgb 5.2 from 7.9. tachycardic. pale this AM. states he feels tired. Continues on BiPAP. Plan for debridement of his arms today. LIJ CVL does not have any signs of overt infection. 12/18: Blood cell count continues to rise today to 30 from 28. Required 1 unit of blood for hemoglobin of 6.6 which improved to 7.7 this morning. However, patient remains tachycardic in the 120s and significantly pale. CT abdomen and pelvis ordered and pending. Tachypneic with respiratory rate in the 30s. Only small amount of dark tarry stool yesterday with approximately 300 cc of stool output. C. difficile toxin negative 3. After discussion with infectious disease, restart vancomycin, cefepime, Flagyl, micafungin. Horn cultures are pending. Per discussion with GI, will not scope as endoscopy is high risk given his tenuous respiratory status this point. Slightly worse hypernatremia as well as worsening acute kidney injury this morning. 12/19: POD 1 s/p ex-lap, washout for perforated ascending colon with extended right hemicolectomy, primary ileocolic anastamosis, open abdomen, septic shock, acute hypoxic and hypercarbic respiratory failure. Significantly critically ill overnight: required 6L ivf resuscitation, 1 unit prbc, norepinephrine, vasopressin, stress dose hydrocortisone. This morning, remains on high-dose vasopressors. still has large volume ivf requirement. Significant SIRS response. Vent requirements increasing with all this volume resuscitation, PEEP up to 10. He remains critically ill, and although I do believe we have surgical source control, I anticipate he will continue to clinically decline before he starts to make improvements. 12/20: Off pressors. follows commands on sedation holiday. +11L over last 3 days during acute illness, +22L since admission. We are going to have to get some of this volume back before we are able to close him given his severe anasarca. 12/21: Taken back to the OR yesterday afternoon for washout and completion colectomy. Postoperatively was significantly under resuscitated as well as had ongoing active oozing. Patient was coagulopathy. The patient was in distributive and hemorrhagic shock. The patient was given multiple units of blood products overnight. Patient was thrombocytopenic, hypofibrinogenemic, coagulopathic. Given significant volume of blood product resuscitation: 24h blood products: 13 prbc 8 ffp 2 plt 1 10-pack cryo This morning continues to have significant amount of bright red output out of his BEV and wound VAC, approximately 500 cc an hour out of his wound VAC, and approximately 75 an mils every 10 minutes out of a BEV. I discussed with surgery and we will correct his coagulopathy and plan to go back to the OR for exploration early this afternoon. 12/22: Clinically starting to improve hemodynamically. off vasopressors. Net+ 26L. CVP rising to 14. UOP adequate. Hgb 7 this AM. 12/23 Seen postop. Hypertensive, BP improved with additional pain medicine. Remains net positive but urine output excellent 3L in 24 hours. Remains on Lasix gtt. went to OR today status post wound VAC change and partial closure 12/24: Fascia was closed yesterday. Wound Vac in place. Remains sedated. -2L negative balance, but with increasing BUN/creat. Discontinue Bumex infusion, start scheduled Bumex 2 mg IV every 12 with IV albumin. 12/25: Overnight became hypotensive requiring Levophed to be restarted. Hemoglobin dropped to 4.1. Noted to have bloody drainage from G-tube and dorsal ileostomy with black stool output 12/26: s/p EGD yesterday-2 gastric ulcers bleeding, stomach a significant part had decreased discoloration indicating probable ischemia. s/p epi injection and cauterization. Continues to have coffee ground G tube output, black tarry Ileostomy output. Hemoglobin down to 6.4 getting 2 units of PRBC. GI recent recommending intervention radiology consult. 12/27: For trach today. Meds ordered. Hgb decline consistent with recent transfusions and senescent cells. 12/28: Trach clean, dry. Start SBTs. Check prealbumin. Continue TPN. 12/29: Looks in direction of voice. I have not seen more purposeful reactions. Line > 12 days old, replace today. Prealbumin 20 - good response to TPN. 12/30: Remains vented, encephalopathic, puss like drainage from left hand, WBC increased 01/01: no significant changes. continues to remain critically ill with minimal improvements over the last week. abdomen closed. still total body volume overloaded. 01/02: more awake today than yesterday. continues to be critically ill with minimal improvements overall. need to look towards placement. -900 yesterday. 01/03: up in chair yesterday. tolerated short run of SBT 15/5/40%. net euvolemic. wbc downtrending. 01/04: wbc slightly uptrended 33 from 30, more acidotic on BMP (14 from 20). Also spiking fevers to 102.3 despite tylenol. continues on broad spectrum abx. yesterday's cxr had what may be a new LLL infiltrate. today, though, he is following commands and more awake and alert. 01/05: LLL pna clinically and based on bronch. CT c/a/p done last night without any significant intra-abdominal change. small left pleural effusion which appears simple in nature, and LLL consolidation. ID broadened abx. today , wbc downtrending. culture data pending. Hgb 7 this AM. 01/06: Underwent exploratory laparotomy last night with findings of bleeding gastric ulcer which was oversewn by Dr. Verdin abdomen left open with wound VAC in place. Received 3 units PRBCs overnight. Remains on Wesley-Synephrine drip this morning for hypotension. Remains sedated, on mechanical ventilation. 01/07: Remains sedated, on mechanical ventilation. For abdominal incision site closure today. Significant positive fluid balance over the last 2 days. Off pressors currently. Lasix to mobilize fluid. 01/08: Remains sedated, on mechanical ventilation via tracheostomy. Underwent abdominal incision site closure this morning. Remains off pressors. Anasarca noted. Blood cultures from 01/04 growing Nava parapsilosis. 01/09: Drowsy/sedated, arousable, on mechanical ventilation via tracheostomy. TPN started yesterday. To be started on J-tube feeds per discussion with surgery 01/10: Sedated, arousable, on mechanical ventilation via tracheostomy. Remains on TPN. J-tube feeds being started today. 01/11: Was on T piece yesterday and rested on C Pap overnight. On TPN. Advanced J-tube feeds to 20 cc an hour today. Attempt T piece as tolerated. 01/12: Awake, tracks with his eyes. On C Pap overnight. Tolerated T piece during daytime yesterday. 01/13: Awake and alert. Was on T piece all day yesterday and was placed back on C Pap at 1:45 AM this morning. Does not appear to be in any acute distress. Tolerating J-tube feeds at 20 cc per hour. 01/14: Drowsy, easily arousable. Was on T piece all day yesterday and rested on C Pap at night. Tolerating J-tube feeds at 40 cc an hour with goal of 60 cc per hour. On TPN which will be discontinued after current bag. BEV drain with cloudy drainage. 01/15 Was placed back on ACV yesterday around 9 am due to tachypnea and remained on ACV overnight. Now on CPAP 11/20 and tolerating. BEV in lower abdomen had purulent output yesterday but RN states looks better today. Tolerating tube feeds, stool in ostomy. Off TPN. Removing CVL. 01/16 Hgb 6.6 on CBC this morning, lab draw, repeat pending. Tachycardia persists but otherwise no hemodynamic change. The NGT output yesterday was bilious, today brown/slight coffee grounds but mostly clear. No blood from BEV' s.Has been tolerating jejunal tube feeds, placed on hold for now. Has been tolerating CPAP 10/5 with RSBI 10s. GI/General surgery updated. 01/17 Hemoglobin 8.0. EGD performed yesterday showing gastric ulcers with no active bleeding. Abdominal wound dressing change today. Plan to begin trickle feeds today per general surgery. 01/18 Hgb 7.3. Tolerating trickle feeds that were resumed per general surgery.Tolerated Tpiece 2 hours yesterday. On CPAP 8/5 overnight. Now on Tpiece about 1 hour and doing well. Will continue intermittent Tpiece trials throughout the day with rest on CPAP in between. Watching off abx; cefepime discontinued 01/16. Remains on fluconazole for candidemia. Subjective: 01/19 Trach developed cuff leak overnight. I exchanged Trach at bedside this morning. Tolerated Tpiece 2 hours, now resting on CPAP 8/5. Doing 2 piece trials up to 2 hours as tolerated tid and then plan to start extending duration of Tpiece trials from there. Tolerating tube feeds. 01/20 Tmax 99.2. Continued Protonix twice a day, noted melena continues in ostomy bag. Patient's T piece trials extended to 4 hours today, maximum toleration. Repeat blood cultures 01/19 still pending, WBC count still elevated. Wound care to be consulted for clarification of all specific dressing changes noted new reddened skin breakdown area on sacrum ,and eschar noted several areas left upper extremity all skin margins of wound noted erythematous. dynamics ax consultant Mattie Yost in attendance of dressing change CHALO, noted no change in left upper extremity appearance in the last 30 days per her assessment.Requested Plastic Surgery reassess LUE and wound care protocol.Patient continues to tolerate tube feeds no residual noted. 01/21 Tmax 99.0. Overnight the patient continued to have episodes of tachycardia , some heart rate 130, appear non-pain related,requiring PRN dosing of antihypertensive meds. Blood cultures returned this morning gram positive cocci. Plan for CT of the abdomen and pelvis 01/22 discussed with and per general surgery.. Discussion of wounds with Dr. Pedro, plastic surgery yesterday, plans for reevaluation by plastic surgery and definitive/ instructions regarding wound care plan for today, of focus left upper extremity. 01/22 Afebrile. Overnight , HR remains in the low 100s-120. Systolic blood pressure remained above 160 early a.m., despite increase in frequency of metoprolol. Plan for increase in dosage of metoprolol. The patient underwent CT of the abdomen and pelvis early this a.m. showing persistent 5 cm left upper quadrant subdiaphragmatic fluid collection. Neurosurgery aware with plans of drainage per IR. Gastroenterology following, noted ostomy output color, melena resolved recommended resumption of anticoagulation prophylactically ,but will hold with plans of IR drainage of fluid collection, per general surgery at this time. 01/23 Tmax 97.7. Overnight no acute issues, one episode of elevated blood pressure, received 1 dose of hydralazine 20 mg IV, with resolution. The patient has remained nothing by mouth for tentative IR drainage of left upper quadrant fluid collection. Imaging studies reevaluated by radiologist, noted no fluid collection is observed in the left upper quadrant. Tentative scheduling of IR drainage canceled. Tube feeds resumed and DVT prophylaxis, heparin resumed. Albumin level 1.1, Beneprotein added to diet twice a day, tolerated, will increase to QID. 01/24 Overnight the patient was noted to have small amount of bleeding around trach site, surgeon was notified and gel foam was applied. Of note the patient' s SQ heparin prophylaxis was resumed and he had received 1 dose at 2100. Heparin DVT prophylaxis was discontinued, chest x-ray was performed, which was was basically unremarkable with the exception of left lower lobe atelectasis. Yesterday the patient was placed out of bed in recliner chair and remained out of bed for 3 hours. Objective Vital Signs Date Time Temp Pulse Resp B/P Pulse Ox O2 Delivery O2 Flow Rate FiO2 01/25/16 07:40 100 T-piece 4.00 40 01/25/16 06:00 112 01/25/16 04:00 98.7 20 147/84 Intake and Output 01/24/16 01/24/16 01/25/16 08:00 16:00 00:00 Intake Total 247 ml 435 ml 831 ml Output Total 720 ml 830 ml 590 ml Balance -473 ml -395 ml 241 ml Result Diagram: 01/25/16 0419 01/25/16 0419 Imaging Last Impressions Chest X-Ray 01/24/16 0000 Signed Impressions: Service Date/Time: January 23:12 - CONCLUSION: 1. Left lower lobe atelectasis versus pneumonia. There has been no significant change when compared to the prior exam. Tracheostomy tube is in expected position Ramone Hall MD Abdomen/Pelvis CT 01/23/16 0800 Signed Impressions: Service Date/Time: Saturday, January 23, 2016 09:05 - CONCLUSION: Relative to the prior study the marked distention of the stomach is reduced. There is a persistent 5 cm left upper quadrant sub-diaphragmatic fluid collection and drain in the left upper quadrant. Patient is post splenectomy. Jejunostomy is in place and ostomy is noted in the right lower abdomen. No free fluid or free air is appreciated and there is no evidence of obstruction. Bilateral pleural effusions persists small but slightly larger on the right with left lower lobe consolidation. Jared Medina MD ADDENDUM: I have reviewed the images with respect to her request made for left subdiaphragmatic drainage of a fluid collection. No fluid collection is observed within the left upper quadrant. There is residual splenic tissue that measures 5 cm in diameter with Hounsfield units 62. The stomach fundus extends up into the subdiaphragmatic location. No subdiaphragmatic fluid collection is observed. Surgical drains are noted. Osmar Chavez Jr., MD Upper Extremity Ultrasound 01/23/16 0600 Signed Impressions: Service Date/Time: Saturday, January 23, 2016 11:29 - CONCLUSION: Normal examination. No evidence DVT Jared Medina MD Chest CT 01/05/16 0000 Signed Impressions: Service Date/Time: Tuesday, January 05, 2016 23:15 - CONCLUSION: 1. Persistent left lower lobar consolidation. Improved consolidative infiltrates in the right lower lung. 2. Interval increase size bilateral pleural effusions , left greater than right. Osmar Alegria MD Celiac/Hepatic Arteriogram 12/27/15 0000 Signed Impressions: Service Date/Time: December 13:41 - CONCLUSION: 1. No active GI bleed identified. Robert Mckinney MD Abdomen X-Ray 12/18/15 0000 Signed Impressions: Service Date/Time: Friday, December 18, 2015 16:05 - CONCLUSION: Feeding tube tip is at the gastric antrum. Arnaldo Elias MD Head CT 12/02/15 1013 Signed Impressions: Service Date/Time: Wednesday, December 02, 2015 11:00 - CONCLUSION: 1. No intracranial abnormality is seen. 2. Air-fluid level in the right maxillary sinus. Arnaldo Reyes MD Last Impressions Abdomen/Pelvis CT 01/23/16 0800 Signed Impressions: Service Date/Time: Saturday, January 23, 2016 09:05 - CONCLUSION: Relative to the prior study the marked distention of the stomach is reduced. There is a persistent 5 cm left upper quadrant sub-diaphragmatic fluid collection and drain in the left upper quadrant. Patient is post splenectomy. Jejunostomy is in place and ostomy is noted in the right lower abdomen. No free fluid or free air is appreciated and there is no evidence of obstruction. Bilateral pleural effusions persists small but slightly larger on the right with left lower lobe consolidation. Jared Medina MD ADDENDUM: I have reviewed the images with respect to her request made for left subdiaphragmatic drainage of a fluid collection. No fluid collection is observed within the left upper quadrant. There is residual splenic tissue that measures 5 cm in diameter with Hounsfield units 62. The stomach fundus extends up into the subdiaphragmatic location. No subdiaphragmatic fluid collection is observed. Surgical drains are noted. Osmar Chvaez Jr., MD Upper Extremity Ultrasound 01/23/16 0600 Signed Impressions: Service Date/Time: Saturday, January 23, 2016 11:29 - CONCLUSION: Normal examination. No evidence DVT Jared Medina MD Chest X-Ray 01/21/16 0600 Signed Impressions: Service Date/Time: Thursday, January 21, 2016 05:12 - CONCLUSION: 1. Cardiomegaly and left retrocardiac/basilar density. 2. Slight interstitial prominence. Wojciech Lockhart MD Chest CT 01/05/16 0000 Signed Impressions: Service Date/Time: Tuesday, January 05, 2016 23:15 - CONCLUSION: 1. Persistent left lower lobar consolidation. Improved consolidative infiltrates in the right lower lung. 2. Interval increase size bilateral pleural effusions , left greater than right. Osmar Alegria MD Celiac/Hepatic Arteriogram 12/27/15 0000 Signed Impressions: Service Date/Time: December 13:41 - CONCLUSION: 1. No active GI bleed identified. Robert Mckinney MD Abdomen X-Ray 12/18/15 0000 Signed Impressions: Service Date/Time: Friday, December 18, 2015 16:05 - CONCLUSION: Feeding tube tip is at the gastric antrum. Arnaldo Elias MD Head CT 12/02/15 1013 Signed Impressions: Service Date/Time: Wednesday, December 02, 2015 11:00 - CONCLUSION: 1. No intracranial abnormality is seen. 2. Air-fluid level in the right maxillary sinus. Arnaldo Reyes MD Last Impressions Abdomen/Pelvis CT 01/23/16 0800 Signed Impressions: Service Date/Time: Saturday, January 23, 2016 09:05 - CONCLUSION: Relative to the prior study the marked distention of the stomach is reduced. There is a persistent 5 cm left upper quadrant sub-diaphragmatic fluid collection and drain in the left upper quadrant. Patient is post splenectomy. Jejunostomy is in place and ostomy is noted in the right lower abdomen. No free fluid or free air is appreciated and there is no evidence of obstruction. Bilateral pleural effusions persists small but slightly larger on the right with left lower lobe consolidation. Jared Medina MD Upper Extremity Ultrasound 01/23/16 0600 Signed Impressions: Service Date/Time: Saturday, January 23, 2016 11:29 - CONCLUSION: Normal examination. No evidence DVT Jared Medina MD Chest X-Ray 01/21/16 0600 Signed Impressions: Service Date/Time: Thursday, January 21, 2016 05:12 - CONCLUSION: 1. Cardiomegaly and left retrocardiac/basilar density. 2. Slight interstitial prominence. Wojciech Lockhart MD Chest CT 01/05/16 0000 Signed Impressions: Service Date/Time: Tuesday, January 05, 2016 23:15 - CONCLUSION: 1. Persistent left lower lobar consolidation. Improved consolidative infiltrates in the right lower lung. 2. Interval increase size bilateral pleural effusions , left greater than right. Osmar Alegria MD Celiac/Hepatic Arteriogram 12/27/15 0000 Signed Impressions: Service Date/Time: December 13:41 - CONCLUSION: 1. No active GI bleed identified. Robert Mckinney MD Abdomen X-Ray 12/18/15 0000 Signed Impressions: Service Date/Time: Friday, December 18, 2015 16:05 - CONCLUSION: Feeding tube tip is at the gastric antrum. Arnaldo Elias MD Head CT 12/02/15 1013 Signed Impressions: Service Date/Time: Wednesday, December 02, 2015 11:00 - CONCLUSION: 1. No intracranial abnormality is seen. 2. Air-fluid level in the right maxillary sinus. Arnaldo Reyes MD Last 48 hours Impressions Chest X-Ray 01/07/16 0000 Signed Impressions: Service Date/Time: Thursday, January 07, 2016 04:23 - CONCLUSION: Worsening consolidation or atelectasis at the left mid and lower lung. Some degree of left effusion may also be contributing to this. Arnaldo Reyes MD Chest X-Ray 01/06/16 0000 Signed Impressions: Service Date/Time: Wednesday, January 06, 2016 19:46 - CONCLUSION: 1. Basilar airspace disease improved from January 04. Tracheostomy and right central line in satisfactory position. Nomi Falcon MD Abdomen/Pelvis CT 01/06/16 0000 Signed Impressions: Service Date/Time: Wednesday, January 06, 2016 22:07 - CONCLUSION: 1. Over the last day there is development of a large mass in the left upper quadrant measuring up to 18 x 13 cm which appears to be associated with the stomach. The mass is characterized by somewhat concentric areas of decreased and increased attenuation with multiple locules of air. Primary differential diagnosis is hemorrhage into the gastric wall with gastric pneumatosis and possibly gastric ischemia. Gastrostomy is again noted anteriorly. 2. Remainder the exam is relatively stable with drainage tube left upper quadrant, splenectomy, bilateral effusions, feeding jejunostomy and drain within the pelvis. There is also diffuse anasarca and nonobstructing renal calculi. Nomi Falcon MD Last Impressions Chest X-Ray 12/17/15 0600 Signed Impressions: Service Date/Time: Thursday, December 17, 2015 03:25 - CONCLUSION: Persistent left lower lobe consolidation. Osmar Alegria MD Chest CT 12/14/15 0000 Signed Impressions: Service Date/Time: Monday, December 14, 2015 06:12 - CONCLUSION: 1. Cardiomegaly with bilateral consolidation, likely CHF. Pneumonia cannot be excluded. 2. Small right pleural effusion. Wojciech Lockhart MD Abdomen X-Ray 12/06/15 0000 Signed Impressions: Service Date/Time: November 09:53 - CONCLUSION: Nonspecific KUB. Air is seen within a mildly distended colon but contrast is clearly seen in the rectum. Arnaldo Reyes MD Abdomen/Pelvis CT 12/04/15 0000 Signed Impressions: Service Date/Time: Friday, December 04, 2015 16:24 - CONCLUSION: 1. Mildly distended small bowel in the mid and lower abdomen. Contrast is clearly seen extending into the distal small bowel and ascending colon so a complete obstruction is not seen. A transition point is not seen. This pattern likely represents an ileus versus a partial obstruction. 2. Multiple nonobstructing renal stones. 3. Abnormal appearance of the spleen which appears to represent a splenule. It could be correlated if the patient has had either primary splenic removal or splenic injury and this is what is either left of the spleen or a developing splenule. This is likely of no significance. 4. Mild ascites. 5. Increased density within the gallbladder representing either tumefactive sludge or noncalcified stones. 6. Mild bilateral pleural effusions with prominent areas of lower lobe atelectasis or consolidation at the bases bilaterally. 7. Subacute to chronic bilateral rib fractures and multiple compression fractures in the lower thoracic and lumbar spine as described above. The patient does have a prior CT examination from 08/26/2014. All the compression deformities described above are new when compared to that scan. Arnaldo Reyes MD Head CT 12/02/15 1013 Signed Impressions: Service Date/Time: Wednesday, December 02, 2015 11:00 - CONCLUSION: 1. No intracranial abnormality is seen. 2. Air-fluid level in the right maxillary sinus. Arnaldo Reyes MD Objective Remarks Jevity 1.5 @ 60 mL per hour, Beneprotein QID GENERAL: Middle-aged chronically critically ill-appearing male, lying in bed, on Tpiece via trach. HEENT: NCAT. mucous membranes moist. NECK: trach in place. RESPIRATORY: On Tpiece, . Breath sounds present bilaterally clear to auscultation, no wheezing . CARDIOVASCULAR: regular, tachycardic ~95-104. Sinus tach on monitor. No murmurs rubs or gallops. GASTROINTESTINAL: J tube in place with tube feeds running . Gauze dressings in place inferior aspect of midline incision. BEV drains x 2 serous drainage. Ostomy with soft brown colored stool. Normoactive bowel sounds. MUSCULOSKELETAL: Generalized anasarca, pitting edema 2+ bilateral feet. Multiple open wounds in the lower extremity, without exudate NEURO: Awake,and responsive. Opens eyes spontaneously, makes eye contact . Moves bilateral feet to commands. 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 - Tylenol 650mg per tube q6h discontinued 01/15 - Dilaudid 2mg Iv q4h prn for breakthrough pain. - oxycodone 20mg per tube q4h scheduled Respiratory Acute respiratory failure-extubated 12/16/15, reintubated for surgery 12/18 Acute hypoxic and hypercarbic respiratory failure Acute healthcare associated pneumonia- resolved NIGEL on home CPAP -Maintain O2 sat greater than 92%, O2 sat on T piece and CPAP trials 94-97% - Perc Tracheostomy 12/27 (Dr. Miller). Trach exchanged 8.0 shiley with cuff on 01/19. - Vent bundle. Head of bed at 30 degrees. Duoneb q6h and prn. - Continue Tpiece trials will extend duration of Tpiece trials to 5 hours then return to CPAP 4 hrs --CXR 01/23 LLL atelectasis, resolution of pleural effusions -CT 01/22 small B/L pleural effusions L> R -. Continue fluid mobilization with lasix on PRN basis CV Hemorrhagic shock- resolved Septic Shock- resolved Volume overload Hypertension Tachycardia - Maintain MAP > 65 mmHg. MAP 95-105 - Cortisol level 14 on 12/14 - Stopped stress dose hydrocortisone on 01/12 and started prednisone 10 mg daily 01/13. If hemodynamics changing or if returns to OR would need stress dose hydrocortisone again. - Echo 12/07 EF 65-70%, grade I diastolic dysfunction. - Metoprolol 25 every 8 hours( begun 01/22) FENRenal: DEIRDRE Hypernatremia (resolved) Hypophosphatemia(resolved) Anasarca, third spacing. Severe hypoalbuminemia - Hypernatremia resolved . Na 145 Free water flushes, decreased to every 12 hours. We'll continue to monitor -Creatinine. Urine eos negative. Off vancomycin. Avoid nephrotoxins. -Monitor BMP- replete electrolytes per ICU protocol -Multivitamin q/day -Albumin 1.1- Beneprotein increased to QID GI Acute GIB, hemorrhagic shock (resolved, now with recurrent anemia but not shock) Perforated right colon with colitis s/p ex-lap, extended right hemicolectomy with primary ileocolic anastamosis, washout, open abdomen (12/18) s/p Ex lap 01/05 for bleeding gastric ulcer Acute protein calorie malnutrition- severe Chronic hepatitis C s/p interferon/ribavirin years ago. Liver biopsy 04/14/08 Melena-resolved 01/22 Severe protein calorie malnutrition - EGD 12/26/15 showed 2 large gastric ulcers with active bleeding status post epinephrine infusion and cauterization - OR on 12/24 with Removal of VAC, washout, pancreatic drain and pelvic drain placement, gastrostomy, feeding jejunostomy and closure of abdomen with application of VAC device in the subcutaneous tissue. -to OR 01/05 with GI bleeding and hemorrhagic shock. Had bleeding gastric ulcer and pneumatosis of stomach. Underwent gastrotomy with ligation of gastric ulcer , lysis of adhesions, wound VAC placement -01/16 Endoscopy showed - ulcers at antrum and cardia without stigmata of bleeding and no exposed vessel. Granulation tissue at suture line without bleeding. Small ulceration there also without bleeding. Duodenum normal. At low risk for UGI bleeding per GI, okay for anticoagulation from their point of view. Avoid NSAIDS/ASA. NGT removed 01/16, to remain out per GI; Dr. Sanchez. Repeat EGD in 2 months ( Mar)per GI recs. -Prior TPN stopped 01/01. Again on TPN 01/08-01/14. -Continue Protonix 40 g IV q12h -Continue Jevity 1.5 goal rate at 60 mL per hour per nutrition/ GI recommendations. -CT abdomen pelvis without contrast reevaluated by Radiology 01/23 No noted 5 cm left upper quadrant subdiaphragmatic fluid collection, assessment by IR cancelled -Albumin 1.1 , Continue Beneprotein 1 packet QID followed by flush of 30 cc H2O with each dose Heme: Acute Anemia secondary to acute blood loss Thrombocytopenia Hypofibrinogenemia secondary to consumption and acute blood loss Coagulopathy secondary to consumption and acute blood loss --monitor CBC --Hep PLT ab negative on 12/03 - Ferrous Sulfate 300mg bid - transfused 3 units PRBCs 01/05- -Hgb of 6.6 on 01/16 was a lab error. The hemoglobin was 8.2 on recheck without any transfusion provided. -Hgb 8.0 stable ID Severe sepsis Necrotizing Fascitis - MSSA on wound culture 12/07. Ecoli bacteremia 12/01 MSSA bacteremia 12/05. Cleared on f/u blood culture 12/07, 12/12. Candidemia (blood culture 01/04 with Nava parapsilosis) Sepsis of Intra-abdominal origin. C. difficile toxic megacolon (based on pathology C diff vs ischemia, C diff test negative) Bacteremia- gram positive cocci 01/21 --Debridement 12/01 p.m at bedside by Dr Pedro and Dr. Hartmann --R hand, forearm and olecranon bursa I and D and Wound vac 12/07 Dr Chavez. -- ABX per ID: Now on Fluconazole alone 01/09 #11 Previously: cefepime 12/17-01/16,flagyl IV 12/17-01/16 , Vancomycin 01/04-01/16 ( trough 20 on 01/15). Micafungin stopped per ID 01/08. Amphotericin B started by ID on 01/08 and stopped 01/09. Nava parapsilosis in blood culture from 01/04 most likely from an intra- abdominal source(central line was changed on 01/04). Last set of blood cultures have been negative. BEV drain with cloudy drainage 01/14, now clear serous. General surgery aware and following. Noted WBC 18 from , if continues uptrend or if evidence of recurrent sepsis off abx, will discuss repeat CT abd/pelvis with surgery. Seen by Dr. Wu 01/13 and no evidence of endogenous fungal endophthalmitis ID following, Dr. Becerra 01/23 blood culture -staph hemolyticus 01/22 noted oral thrush- Nystatin 5 ml QID (swish and spit)(day 2) Wound care following for wounds- Wound vac discontinued 01/21 -Plastic Surgery requested for reassessment of LUE and skin care protocol for left arm 01/20, following recommendations --12/17 blood cultures: NGTD 12/17 central line culture: NGTD 12/17 urine cultures: NGTD 12/17 sputum cultures: NGTD C. difficile toxin 12/17: Negative (3rd negative toxin screen) -01/04 Blood culture with nava parapsilosis 01/04: horn culture, bronch with BAL, 01/04: CT chest/abd/pelvis without contrast: LLL consolidation, otherwise unchanged. 01/04: clinically LLL VAP. 01/08 Blood cultures: no growth 01/09 blood culture peripheral - NGTD 01/12 sputum cutlure - neg 01/12 - urine culture NGTD. 01/23- Bld culture-Staph hemolyticus 01/22- Oral Thrush Endocrine: Hyperglycemia of Critical Illness Diabetes - off Insulin drip - Levemir BID on hold. - On low-dose insulin sliding scale with bedside glucose every 6 hours, not requiring coverage. Glucose at 90 - Prednisone 10mg po daily since 01/13. Previously was on prednisone as an outpatient. Has been on hydrocortisone intermittently when he has gone to the OR or decompensated. - Tube feeding resumed Jevity 1.5 @ 60cc/hr resumed MSK: -Daily functional maintenance of extremities x 4 -US LUE 01/22- negative for DVT -Multi-Podis soft boots prevent foot drop -PT eval and treat -OOB to recliner chair Prophylaxis: GI Prophylaxis: -- Protonix IV BID DVT Prophylaxis: - SCDs Heparin SQ 5000 u discontinued 01/23, after 1 dose . No chemical DVT Prophylaxis , OOB to chair and daily functional maintenance of extremities x 4 ACCESS: --PIV x 2. Right IJ TLC 01/04-01/15 #12. PT/OT. OOB. Discussed with Mrs. 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 This patient remains critically ill with one or more organ systems which are or may become a threat to life. I have spent in excess of 35 minutes discontinuously in the care and management of this patient. This time is exclusive of procedures, and includes, but is not limited to, evaluation of the patient, review of the medical record, discussions with family, consultants, nursing staff, or respiratory therapy, and documentation in the medical record. Physician Fe Poole Problem Qualifiers (1) Respiratory failure: Qualified Code: J96.00 - Acute respiratory failure, unspecified whether with hypoxia or hypercapnia (2) Altered mental status: Qualified Code: R41.0 - Delirium (3) Sepsis: Qualified Code: A41.9 - Sepsis, due to unspecified organism Fe Poole MD Jan 25, 2016 10:28
[2016-01-25] MEDS: FLUCONAZOLE 400 MG PREMIX BAG 200 ML IV SCH (11:56)
--- NOTE | 2016-01-25 16:36 | HHI.PR ---
Subjective Subjective Notes Up to chair In good spirits at bedside Objective Vitals/I&O Vital Signs Date Time Temp Pulse Resp B/P Pulse Ox O2 Delivery O2 Flow Rate FiO2 01/25/16 15:37 99 35 01/25/16 14:00 110 01/25/16 13:00 25 01/25/16 12:00 98.2 167/88 01/25/16 07:40 T-piece 4.00 Labs Laboratory Tests Test 01/25/16 01/25/16 00:09 04:19 White Blood Count 12.6 12.8 Red Blood Count 2.88 2.68 Hemoglobin 8.3 8.0 Hematocrit 26.1 24.6 Mean Corpuscular Volume 90.7 91.6 Mean Corpuscular Hemoglobin 29.0 29.7 Mean Corpuscular Hemoglobin 32.0 32.4 Concent Red Cell Distribution Width 18.0 18.4 Platelet Count 160 150 Mean Platelet Volume 9.6 9.8 Neutrophils (%) (Auto) 76.8 Lymphocytes (%) (Auto) 10.9 Monocytes (%) (Auto) 11.5 Eosinophils (%) (Auto) 0.4 Basophils (%) (Auto) 0.4 Neutrophils # (Auto) 9.7 Lymphocytes # (Auto) 1.4 Monocytes # (Auto) 1.5 Eosinophils # (Auto) 0.0 Basophils # (Auto) 0.1 CBC Comment AUTO DIFF Differential Comment AUTO DIFF CONFIRMED Platelet Estimate NORMAL Platelet Morphology Comment ENLARGED Prothrombin Time 10.8 Prothromb Time International 1.0 Ratio Fibrinogen 532 Sodium Level 146 Potassium Level 4.4 Chloride Level 113 Carbon Dioxide Level 25.3 Anion Gap 8 Blood Urea Nitrogen 60 Creatinine 1.02 Estimat Glomerular Filtration 76 Rate Random Glucose 126 Calcium Level 8.2 Phosphorus Level 3.3 Magnesium Level 2.1 Radiology Last Impressions Chest X-Ray 12/28/15 0000 Signed Impressions: Service Date/Time: Monday, December 28, 2015 14:23 - CONCLUSION: Large left pleural effusion and left lung base consolidation. Freddy Connor MD Abdomen/Pelvis CT 12/19/15 0000 Signed Impressions: Service Date/Time: Saturday, December 19, 2015 10:57 - CONCLUSION: 1. Adjacent volume pneumoperitoneum is observed consistent with perforation of a hollow viscus. This is presumably colonic in origin due to the diffuse inflammatory process involving the colon. I do not clearly identify the source of the pneumoperitoneum however. There is mild dilatation of the small bowel likely an ileus in nature. A significant volume of ascitic fluid is noted. 2. Bibasilar atelectasis and bilateral pleural effusions. 3. Small pericardial effusion. 4. Small bilateral nonobstructing renal calculi. 5. I spoke with Dr. Sanchez concerning the findings. Osmar Chavez Jr., MD Abdomen X-Ray 12/18/15 0000 Signed Impressions: Service Date/Time: Friday, December 18, 2015 16:05 - CONCLUSION: Feeding tube tip is at the gastric antrum. Arnaldo Elias MD Chest CT 12/14/15 0000 Signed Impressions: Service Date/Time: Monday, December 14, 2015 06:12 - CONCLUSION: 1. Cardiomegaly with bilateral consolidation, likely CHF. Pneumonia cannot be excluded. 2. Small right pleural effusion. Wojciech Lockhart MD Head CT 12/02/15 1013 Signed Impressions: Service Date/Time: Wednesday, December 02, 2015 11:00 - CONCLUSION: 1. No intracranial abnormality is seen. 2. Air-fluid level in the right maxillary sinus. Arnaldo Reyes MD Cardiovascular: Regular Lungs: Clear Abdomen: Other (see below ), Post-op tenderness Extremities: Other (gen edema ) Narrative Exam RIGHT arm dressing in place Abd: Midline incision--- packing removed and replaced to superior and inferior portion of incision; RIGHT MARK with serous drainage; LEFT with darker sedimentary drainage; ileostomy with stool trach with minimal bloody drainage A/P Problem List: (1) Dependent on ventilator (2) Open wound of abdomen (3) Ileostomy in place (4) Jejunostomy tube present (5) S/P total colectomy (6) Acute colitis (7) Gastrostomy tube in place Assessment and Plan 55 year old male s/p ex lap; s/p colectomy; G/J tube placement and would vac change -Hmg stable -Tolerating TF -Hmg stable -Continue to closely monitor WBC -Primapore dressing BID and PRN to midline incision ----packing to superior and inferior areas of incision -Monitor MARK output and drainage color - at bedside Attending Statement patient seen at bedside continues to improve d/c mark soon Attestation The exam, history, and the medical decision-making described in the above note were completed with the assistance of the mid-level provider. I reviewed and agree with the findings presented. I attest that I had a [id number] encounter with the patient on the same day, and personally performed and documented my assessment and findings in the medical record. Problem Qualifiers (1) Open wound of abdomen: Qualified Code: S31.109D - Open wound of abdomen, subsequent encounter Lurdes Felix Jan 25, 2016 16:36 Bebo Verdin MD Feb 12, 2016 11:18
[2016-01-25] MEDS: NEOMYCIN/POLYMYXIN/BACITRACIN OINT 15 GM TUBE TOPICAL SCH ×2 (18:29→20:25)
[2016-01-25] MEDS: POVIDONE IODINE 10% OINT 30 GM TUBE TOPICAL SCH (18:29)
[2016-01-25] MEDS: SILVER SULFADIAZINE 1% CR 400 GM JAR TOPICAL SCH (18:29)
[2016-01-25] MEDS: hydrALAZINE HCL 20 MG/ML VIAL IV PUSH PRN (20:24)
[2016-01-25] MEDS: SODIUM CHLORIDE 0.9% FLUSH 5 ML FLUSH IVF PRN (20:25)
[2016-01-26] VITALS (18 sets, daily range): BP systolic 134–164; BP diastolic 63–94; PULSE 100–126; RESP 15–30; TEMP 98–98.9; O2SAT 93–100
[2016-01-26] MEDS: oxyCODONE HCL ORAL CONC 20 MG/ML SYRINGE PO SCH ×7 (01:30→23:51)
[2016-01-26] MEDS: CHLORHEXIDINE GLUCONATE 2 % 1 PACK (2 CLOTHS) TOP SCH (04:00)
[2016-01-26] MEDS: RESP: ALBUTEROL 2.5 MG/IPRATROPIUM 0.5 MG NEB (SCH) NEB ×4 (04:14→19:33)
[2016-01-26 04:15] LABS: HEMATOCRIT 22.3 % (39.0-51.0); MEAN CORPUSCULAR HEMOGLOBIN 29.4 PG (27.0-34.0); MEAN CORPUSCULAR HGB CONC 32.3 % (32.0-36.0); PLATELET COUNT 168 TH/MM3 (150-450); RED BLOOD COUNT 2.45 MIL/MM3 (4.50-5.90); REVIEW FLAG FINAL; WHITE BLOOD COUNT 12.3 TH/MM3 (4.0-11.0)
[2016-01-26 04:26] LABS: APTT (PATIENT) 24.7 SEC (24.3-30.1); PROTHROMBIN TIME - PATIENT 10.7 SEC (9.8-11.6)
[2016-01-26 04:42] LABS: BICARBONATE 25.8 MEQ/L (21.0-32.0); MAGNESIUM 1.9 MG/DL (1.5-2.5); POTASSIUM 4.7 MEQ/L (3.5-5.1)
[2016-01-26] MEDS: PANTOPRAZOLE SODIUM 40 MG VIAL IV PUSH SCH ×2 (05:17→17:39)
[2016-01-26] MEDS: METOPROLOL TARTRATE 25 MG TAB TUBE SCH ×3 (05:18→20:11)
[2016-01-26] MEDS: INSULIN ASPART SUPPLEMENTAL SCALE SQ SCH ×4 (06:00→23:51)
[2016-01-26] MEDS: HYDROmorphone HCL PF 2 MG/ML VIAL IV PUSH PRN ×5 (06:57→20:56)
[2016-01-26] MEDS: FERROUS SULFATE 300 MG /5ML UDC TUBE SCH ×2 (08:00→20:11)
[2016-01-26] MEDS: SILVER SULFADIAZINE 1% CR 400 GM JAR TOPICAL SCH (08:00)
[2016-01-26] MEDS: MULTIVITAMINS LIQUID 5 ML UDC TUBE SCH (08:00)
[2016-01-26] MEDS: NYSTATIN SUSP 500,000 U/5 ML CUP SWISH-SPIT SCH ×4 (08:00→20:11)
[2016-01-26] MEDS: CHLORHEXIDINE 0.12% (ORAL KIT) 15 ML CUP MT SCH ×2 (08:00→20:12)
[2016-01-26] MEDS: predniSONE 10 MG TAB NG SCH (08:01)
[2016-01-26] MEDS: POVIDONE IODINE 10% OINT 30 GM TUBE TOPICAL SCH (08:01)
[2016-01-26] MEDS: NEOMYCIN/POLYMYXIN/BACITRACIN OINT 15 GM TUBE TOPICAL SCH ×2 (08:01→20:12)
[2016-01-26] MEDS: FREE WATER G-TUBE SCH ×2 (08:01→20:12)
--- NOTE | 2016-01-26 10:08 | HHI.PR ---
Subjective Subjective Notes AWAKE, WATCHING TV, NO COMPLAINTS, NO TRACH BLEEDING PER RN Objective Vitals/I&O Vital Signs Date Time Temp Pulse Resp B/P Pulse Ox O2 Delivery O2 Flow Rate FiO2 01/26/16 07:59 100 35 01/26/16 06:00 100 01/26/16 04:00 98.0 15 148/81 01/25/16 07:40 T-piece 4.00 Labs Laboratory Tests Test 01/26/16 03:41 White Blood Count 12.3 Red Blood Count 2.45 Hemoglobin 7.2 Hematocrit 22.3 Mean Corpuscular Volume 91.0 Mean Corpuscular Hemoglobin 29.4 Mean Corpuscular Hemoglobin 32.3 Concent Red Cell Distribution Width 19.0 Platelet Count 168 Mean Platelet Volume 9.5 Prothrombin Time 10.7 Prothromb Time International 1.0 Ratio Activated Partial 24.7 Thromboplast Time Sodium Level 147 Potassium Level 4.7 Chloride Level 113 Carbon Dioxide Level 25.8 Anion Gap 8 Blood Urea Nitrogen 55 Creatinine 0.92 Estimat Glomerular Filtration 86 Rate Random Glucose 117 Calcium Level 8.2 Phosphorus Level 3.2 Magnesium Level 1.9 Radiology Last Impressions Chest X-Ray 12/28/15 0000 Signed Impressions: Service Date/Time: Monday, December 28, 2015 14:23 - CONCLUSION: Large left pleural effusion and left lung base consolidation. Freddy Connor MD Abdomen/Pelvis CT 12/19/15 0000 Signed Impressions: Service Date/Time: Saturday, December 19, 2015 10:57 - CONCLUSION: 1. Adjacent volume pneumoperitoneum is observed consistent with perforation of a hollow viscus. This is presumably colonic in origin due to the diffuse inflammatory process involving the colon. I do not clearly identify the source of the pneumoperitoneum however. There is mild dilatation of the small bowel likely an ileus in nature. A significant volume of ascitic fluid is noted. 2. Bibasilar atelectasis and bilateral pleural effusions. 3. Small pericardial effusion. 4. Small bilateral nonobstructing renal calculi. 5. I spoke with Dr. Sanchez concerning the findings. Osmar Chavez Jr., MD Abdomen X-Ray 12/18/15 0000 Signed Impressions: Service Date/Time: Friday, December 18, 2015 16:05 - CONCLUSION: Feeding tube tip is at the gastric antrum. Arnaldo Elias MD Chest CT 12/14/15 0000 Signed Impressions: Service Date/Time: Monday, December 14, 2015 06:12 - CONCLUSION: 1. Cardiomegaly with bilateral consolidation, likely CHF. Pneumonia cannot be excluded. 2. Small right pleural effusion. Wojciech Lockhart MD Head CT 12/02/15 1013 Signed Impressions: Service Date/Time: Wednesday, December 02, 2015 11:00 - CONCLUSION: 1. No intracranial abnormality is seen. 2. Air-fluid level in the right maxillary sinus. Arnaldo Reyes MD Abdomen: Non-distended Narrative Exam ABDOMEN WOUND CLEAN, WET TO DRY DRESSING CHANGED, ARMS VERY SOUPY WITH EXPOSED TENDONS AND MUSCLES. A/P Problem List: (1) Dependent on ventilator (2) Open wound of abdomen (3) Ileostomy in place (4) Jejunostomy tube present (5) S/P total colectomy (6) Acute colitis (7) Gastrostomy tube in place Assessment and Plan s/p exp lap colectomy stable, no signs further bleeding ostomy working well arms to be addressed by plastic surgery consider removing JPs Problem Qualifiers (1) Open wound of abdomen: Qualified Code: S31.109D - Open wound of abdomen, subsequent encounter Justice Oswald MD Jan 26, 2016 10:08
[2016-01-26] MEDS: FLUCONAZOLE 400 MG PREMIX BAG 200 ML IV SCH (11:05)
[2016-01-26] MEDS: hydrALAZINE HCL 20 MG/ML VIAL IV PUSH PRN (13:59)
--- NOTE | 2016-01-26 15:35 | HHI.CCPN ---
Subjective Remarks/Hospital Course 55-year-old male brought by EMS with altered mental status. He has been confused for 2 days but this morning has been the worst. He has history of chronic opiate medications including methadone and morphine that he takes for pain management and hence they gave him Narcan IV which brought the GCS up to 13. The blood glucose was 74. He has open wounds from his right upper and bilateral lower extremities. He has history of hepatitis C. Last week he was pealing and eating shrimps. Bedside blood sugar was 76 in the ER. He was tachycardic in 1 teens and was intubated in the ED for airway protection. Admitted to ICU with sepsis due to Staph Aureus hand infection and E. Coli bacteriemia. 12/05 Patient remains sedated with Fentanyl and intubated. On Levophed 3 mics, Vasopressin 0.03 mics and Bicarb drip. T:99.8 TF placed on hold OGT to LIWS last night - gastric drainage 525ml overnight. 12/06 Patient is sedated with Fentanyl and intubated, On Levophed 3 mics, off vasopressin. Gastric output 400ml in 24 hrs. KUB abdomen yesterday mildly distended colon otherwise non specific KUB. 12/07 Patient is off sedation remains intubated tolerated CPAP for most day yesterday. Afebrile. on no drips, tolerating tube feeds. 12/08 Patient went to OR yesterday for debridement and irrigation of right forearm and wound VAC placement. Given 2U PRBC and 2u PLT yesterday and currently receiving 1of 2 u additional PRBC. Hgb 7.7, PLT 43 this morning. Patient also started on pressors now on Levophed 10 mics. Vasopressin 0.04 mics. On no sedation. 12/09 Patient remains intubated off pressors, Afebrile. Tolerating tube feeds. Afebrile. 12/10 Patient is sedated with Fentanyl and intubated. Awake and follows commands off sedation. Afebrile. 12/11 Patient had ?SVT overnight given Lopressor 2.5mg IV x1, Remains intubated and sedated with Fentanyl. Afebrile. Tolerating TF. 12/12 Patient spoked fever last night with T: 101.5, sedated with Fentanyl and intubated. 12/13 Patient had an episode of desaturation overnight required increase FIO2/ PEE now on ACV with RR 14, TV 550, PEEP: 12, FIO2 60% with sats 100% CT chest performed overnight showed b/l consolidation and small pleural effusion. Had T: 100.0 last night. 12/14 Tolerating PS 15/CPAP 10 FiO2 40% with rSBI 38, weaning. . Awake and alert , following commands. Hypotensive overnight and levophed restarted up to 12 mcg/ min. Nurse has been weaning throughout the day. Suspected adrenal insufficiency as he was on prednisone as outpatient for gout and has not been on stress dose steroids. Given decadron. 12/15 Transfused 1 unit PRBC for Hgb 7.0 yesterday, 1 unit PRBC for Hgb 6.6 today and now Hgb 8.3. Does not clinically have e/o active GI bleeding and wound vac output nonbloody. Stool 1500 output, C diff negative. No abdominal pain. Remains Awake and alert, remained on CPAP 10/5 last night and is now tolerating CPAP 5/5. 12/16: Extubated yesterday tolerating well. Breathing comfortably. Able to follow commands. UO 1.8 L in 24 hours. Na slightly increased to 153. 12/17: Significantly worse this AM. WBC up to 28 from 16. Hgb 5.2 from 7.9. tachycardic. pale this AM. states he feels tired. Continues on BiPAP. Plan for debridement of his arms today. LIJ CVL does not have any signs of overt infection. 12/18: Blood cell count continues to rise today to 30 from 28. Required 1 unit of blood for hemoglobin of 6.6 which improved to 7.7 this morning. However, patient remains tachycardic in the 120s and significantly pale. CT abdomen and pelvis ordered and pending. Tachypneic with respiratory rate in the 30s. Only small amount of dark tarry stool yesterday with approximately 300 cc of stool output. C. difficile toxin negative 3. After discussion with infectious disease, restart vancomycin, cefepime, Flagyl, micafungin. Horn cultures are pending. Per discussion with GI, will not scope as endoscopy is high risk given his tenuous respiratory status this point. Slightly worse hypernatremia as well as worsening acute kidney injury this morning. 12/19: POD 1 s/p ex-lap, washout for perforated ascending colon with extended right hemicolectomy, primary ileocolic anastamosis, open abdomen, septic shock, acute hypoxic and hypercarbic respiratory failure. Significantly critically ill overnight: required 6L ivf resuscitation, 1 unit prbc, norepinephrine, vasopressin, stress dose hydrocortisone. This morning, remains on high-dose vasopressors. still has large volume ivf requirement. Significant SIRS response. Vent requirements increasing with all this volume resuscitation, PEEP up to 10. He remains critically ill, and although I do believe we have surgical source control, I anticipate he will continue to clinically decline before he starts to make improvements. 12/20: Off pressors. follows commands on sedation holiday. +11L over last 3 days during acute illness, +22L since admission. We are going to have to get some of this volume back before we are able to close him given his severe anasarca. 12/21: Taken back to the OR yesterday afternoon for washout and completion colectomy. Postoperatively was significantly under resuscitated as well as had ongoing active oozing. Patient was coagulopathy. The patient was in distributive and hemorrhagic shock. The patient was given multiple units of blood products overnight. Patient was thrombocytopenic, hypofibrinogenemic, coagulopathic. Given significant volume of blood product resuscitation: 24h blood products: 13 prbc 8 ffp 2 plt 1 10-pack cryo This morning continues to have significant amount of bright red output out of his BEV and wound VAC, approximately 500 cc an hour out of his wound VAC, and approximately 75 an mils every 10 minutes out of a BEV. I discussed with surgery and we will correct his coagulopathy and plan to go back to the OR for exploration early this afternoon. 12/22: Clinically starting to improve hemodynamically. off vasopressors. Net+ 26L. CVP rising to 14. UOP adequate. Hgb 7 this AM. 12/23 Seen postop. Hypertensive, BP improved with additional pain medicine. Remains net positive but urine output excellent 3L in 24 hours. Remains on Lasix gtt. went to OR today status post wound VAC change and partial closure 12/24: Fascia was closed yesterday. Wound Vac in place. Remains sedated. -2L negative balance, but with increasing BUN/creat. Discontinue Bumex infusion, start scheduled Bumex 2 mg IV every 12 with IV albumin. 12/25: Overnight became hypotensive requiring Levophed to be restarted. Hemoglobin dropped to 4.1. Noted to have bloody drainage from G-tube and dorsal ileostomy with black stool output 12/26: s/p EGD yesterday-2 gastric ulcers bleeding, stomach a significant part had decreased discoloration indicating probable ischemia. s/p epi injection and cauterization. Continues to have coffee ground G tube output, black tarry Ileostomy output. Hemoglobin down to 6.4 getting 2 units of PRBC. GI recent recommending intervention radiology consult. 12/27: For trach today. Meds ordered. Hgb decline consistent with recent transfusions and senescent cells. 12/28: Trach clean, dry. Start SBTs. Check prealbumin. Continue TPN. 12/29: Looks in direction of voice. I have not seen more purposeful reactions. Line > 12 days old, replace today. Prealbumin 20 - good response to TPN. 12/30: Remains vented, encephalopathic, puss like drainage from left hand, WBC increased 01/01: no significant changes. continues to remain critically ill with minimal improvements over the last week. abdomen closed. still total body volume overloaded. 01/02: more awake today than yesterday. continues to be critically ill with minimal improvements overall. need to look towards placement. -900 yesterday. 01/03: up in chair yesterday. tolerated short run of SBT 15/5/40%. net euvolemic. wbc downtrending. 01/04: wbc slightly uptrended 33 from 30, more acidotic on BMP (14 from 20). Also spiking fevers to 102.3 despite tylenol. continues on broad spectrum abx. yesterday's cxr had what may be a new LLL infiltrate. today, though, he is following commands and more awake and alert. 01/05: LLL pna clinically and based on bronch. CT c/a/p done last night without any significant intra-abdominal change. small left pleural effusion which appears simple in nature, and LLL consolidation. ID broadened abx. today , wbc downtrending. culture data pending. Hgb 7 this AM. 01/06: Underwent exploratory laparotomy last night with findings of bleeding gastric ulcer which was oversewn by Dr. Verdin abdomen left open with wound VAC in place. Received 3 units PRBCs overnight. Remains on Wesley-Synephrine drip this morning for hypotension. Remains sedated, on mechanical ventilation. 01/07: Remains sedated, on mechanical ventilation. For abdominal incision site closure today. Significant positive fluid balance over the last 2 days. Off pressors currently. Lasix to mobilize fluid. 01/08: Remains sedated, on mechanical ventilation via tracheostomy. Underwent abdominal incision site closure this morning. Remains off pressors. Anasarca noted. Blood cultures from 01/04 growing Nava parapsilosis. 01/09: Drowsy/sedated, arousable, on mechanical ventilation via tracheostomy. TPN started yesterday. To be started on J-tube feeds per discussion with surgery 01/10: Sedated, arousable, on mechanical ventilation via tracheostomy. Remains on TPN. J-tube feeds being started today. 01/11: Was on T piece yesterday and rested on C Pap overnight. On TPN. Advanced J-tube feeds to 20 cc an hour today. Attempt T piece as tolerated. 01/12: Awake, tracks with his eyes. On C Pap overnight. Tolerated T piece during daytime yesterday. 01/13: Awake and alert. Was on T piece all day yesterday and was placed back on C Pap at 1:45 AM this morning. Does not appear to be in any acute distress. Tolerating J-tube feeds at 20 cc per hour. 01/14: Drowsy, easily arousable. Was on T piece all day yesterday and rested on C Pap at night. Tolerating J-tube feeds at 40 cc an hour with goal of 60 cc per hour. On TPN which will be discontinued after current bag. BEV drain with cloudy drainage. 01/15 Was placed back on ACV yesterday around 9 am due to tachypnea and remained on ACV overnight. Now on CPAP 11/20 and tolerating. BEV in lower abdomen had purulent output yesterday but RN states looks better today. Tolerating tube feeds, stool in ostomy. Off TPN. Removing CVL. 01/16 Hgb 6.6 on CBC this morning, lab draw, repeat pending. Tachycardia persists but otherwise no hemodynamic change. The NGT output yesterday was bilious, today brown/slight coffee grounds but mostly clear. No blood from BEV' s.Has been tolerating jejunal tube feeds, placed on hold for now. Has been tolerating CPAP 10/5 with RSBI 10s. GI/General surgery updated. 01/17 Hemoglobin 8.0. EGD performed yesterday showing gastric ulcers with no active bleeding. Abdominal wound dressing change today. Plan to begin trickle feeds today per general surgery. 01/18 Hgb 7.3. Tolerating trickle feeds that were resumed per general surgery.Tolerated Tpiece 2 hours yesterday. On CPAP 8/5 overnight. Now on Tpiece about 1 hour and doing well. Will continue intermittent Tpiece trials throughout the day with rest on CPAP in between. Watching off abx; cefepime discontinued 01/16. Remains on fluconazole for candidemia. Subjective: 01/19 Trach developed cuff leak overnight. I exchanged Trach at bedside this morning. Tolerated Tpiece 2 hours, now resting on CPAP 8/5. Doing 2 piece trials up to 2 hours as tolerated tid and then plan to start extending duration of Tpiece trials from there. Tolerating tube feeds. 01/20 Tmax 99.2. Continued Protonix twice a day, noted melena continues in ostomy bag. Patient's T piece trials extended to 4 hours today, maximum toleration. Repeat blood cultures 01/19 still pending, WBC count still elevated. Wound care to be consulted for clarification of all specific dressing changes noted new reddened skin breakdown area on sacrum ,and eschar noted several areas left upper extremity all skin margins of wound noted erythematous. toll collector Mattie Yost in attendance of dressing change CHALO, noted no change in left upper extremity appearance in the last 30 days per her assessment.Requested Plastic Surgery reassess LUE and wound care protocol.Patient continues to tolerate tube feeds no residual noted. 01/21 Tmax 99.0. Overnight the patient continued to have episodes of tachycardia , some heart rate 130, appear non-pain related,requiring PRN dosing of antihypertensive meds. Blood cultures returned this morning gram positive cocci. Plan for CT of the abdomen and pelvis 01/22 discussed with and per general surgery.. Discussion of wounds with Dr. Pedro, plastic surgery yesterday, plans for reevaluation by plastic surgery and definitive/ instructions regarding wound care plan for today, of focus left upper extremity. 01/22 Afebrile. Overnight , HR remains in the low 100s-120. Systolic blood pressure remained above 160 early a.m., despite increase in frequency of metoprolol. Plan for increase in dosage of metoprolol. The patient underwent CT of the abdomen and pelvis early this a.m. showing persistent 5 cm left upper quadrant subdiaphragmatic fluid collection. Neurosurgery aware with plans of drainage per IR. Gastroenterology following, noted ostomy output color, melena resolved recommended resumption of anticoagulation prophylactically ,but will hold with plans of IR drainage of fluid collection, per general surgery at this time. 01/23 Tmax 97.7. Overnight no acute issues, one episode of elevated blood pressure, received 1 dose of hydralazine 20 mg IV, with resolution. The patient has remained nothing by mouth for tentative IR drainage of left upper quadrant fluid collection. Imaging studies reevaluated by radiologist, noted no fluid collection is observed in the left upper quadrant. Tentative scheduling of IR drainage canceled. Tube feeds resumed and DVT prophylaxis, heparin resumed. Albumin level 1.1, Beneprotein added to diet twice a day, tolerated, will increase to QID. 01/24 Overnight the patient was noted to have small amount of bleeding around trach site, surgeon was notified and gel foam was applied. Of note the patient' s SQ heparin prophylaxis was resumed and he had received 1 dose at 2100. Heparin DVT prophylaxis was discontinued, chest x-ray was performed, which was was basically unremarkable with the exception of left lower lobe atelectasis. Yesterday the patient was placed out of bed in recliner chair and remained out of bed for 3 hours. 01/25 No bleeding noted around trach site overnight. Subcutaneous heparin continues to be on hold. The patient to T piece trial was advanced to 5 hours yesterday, patient was only able to maintain 4.5 hours before tiring out. We' ll continue to attempt Tpiece trials to 5 hours. The patient's Beneprotein has been advanced to 4 times a day. The patient is out of bed to chair 2 hours each day, utilizing PT for functional maintenance of extremities 4 daily. Minimal drainage from BEV . Objective Vital Signs Date Time Temp Pulse Resp B/P Pulse Ox O2 Delivery O2 Flow Rate FiO2 01/26/16 14:54 35 01/26/16 14:33 99 01/26/16 14:00 112 01/26/16 12:00 98.6 17 151/63 01/25/16 07:40 T-piece 4.00 Intake and Output 01/25/16 01/25/16 01/25/16 07:59 15:59 23:59 Intake Total 865 ml 911 ml 810 ml Output Total 490 ml 580 ml 850 ml Balance 375 ml 331 ml -40 ml Result Diagram: 01/26/16 0341 01/26/16 0341 Imaging Last Impressions Chest X-Ray 01/24/16 0000 Signed Impressions: Service Date/Time: January 23:12 - CONCLUSION: 1. Left lower lobe atelectasis versus pneumonia. There has been no significant change when compared to the prior exam. Tracheostomy tube is in expected position Ramone Hall MD Abdomen/Pelvis CT 01/23/16 0800 Signed Impressions: Service Date/Time: Saturday, January 23, 2016 09:05 - CONCLUSION: Relative to the prior study the marked distention of the stomach is reduced. There is a persistent 5 cm left upper quadrant sub-diaphragmatic fluid collection and drain in the left upper quadrant. Patient is post splenectomy. Jejunostomy is in place and ostomy is noted in the right lower abdomen. No free fluid or free air is appreciated and there is no evidence of obstruction. Bilateral pleural effusions persists small but slightly larger on the right with left lower lobe consolidation. Jared Medina MD ADDENDUM: I have reviewed the images with respect to her request made for left subdiaphragmatic drainage of a fluid collection. No fluid collection is observed within the left upper quadrant. There is residual splenic tissue that measures 5 cm in diameter with Hounsfield units 62. The stomach fundus extends up into the subdiaphragmatic location. No subdiaphragmatic fluid collection is observed. Surgical drains are noted. Osmar Chavez Jr., MD Upper Extremity Ultrasound 01/23/16 0600 Signed Impressions: Service Date/Time: Saturday, January 23, 2016 11:29 - CONCLUSION: Normal examination. No evidence DVT Jared Medina MD Chest CT 01/05/16 0000 Signed Impressions: Service Date/Time: Tuesday, January 05, 2016 23:15 - CONCLUSION: 1. Persistent left lower lobar consolidation. Improved consolidative infiltrates in the right lower lung. 2. Interval increase size bilateral pleural effusions , left greater than right. Osmar Alegria MD Celiac/Hepatic Arteriogram 12/27/15 0000 Signed Impressions: Service Date/Time: December 13:41 - CONCLUSION: 1. No active GI bleed identified. Robert Mckinney MD Abdomen X-Ray 12/18/15 0000 Signed Impressions: Service Date/Time: Friday, December 18, 2015 16:05 - CONCLUSION: Feeding tube tip is at the gastric antrum. Arnaldo Elias MD Head CT 12/02/15 1013 Signed Impressions: Service Date/Time: Wednesday, December 02, 2015 11:00 - CONCLUSION: 1. No intracranial abnormality is seen. 2. Air-fluid level in the right maxillary sinus. Arnaldo Reyes MD Last Impressions Abdomen/Pelvis CT 01/23/16 0800 Signed Impressions: Service Date/Time: Saturday, January 23, 2016 09:05 - CONCLUSION: Relative to the prior study the marked distention of the stomach is reduced. There is a persistent 5 cm left upper quadrant sub-diaphragmatic fluid collection and drain in the left upper quadrant. Patient is post splenectomy. Jejunostomy is in place and ostomy is noted in the right lower abdomen. No free fluid or free air is appreciated and there is no evidence of obstruction. Bilateral pleural effusions persists small but slightly larger on the right with left lower lobe consolidation. Jared Medina MD ADDENDUM: I have reviewed the images with respect to her request made for left subdiaphragmatic drainage of a fluid collection. No fluid collection is observed within the left upper quadrant. There is residual splenic tissue that measures 5 cm in diameter with Hounsfield units 62. The stomach fundus extends up into the subdiaphragmatic location. No subdiaphragmatic fluid collection is observed. Surgical drains are noted. Osmar Chavez Jr., MD Upper Extremity Ultrasound 01/23/16 0600 Signed Impressions: Service Date/Time: Saturday, January 23, 2016 11:29 - CONCLUSION: Normal examination. No evidence DVT Jared Medina MD Chest X-Ray 01/21/16 0600 Signed Impressions: Service Date/Time: Thursday, January 21, 2016 05:12 - CONCLUSION: 1. Cardiomegaly and left retrocardiac/basilar density. 2. Slight interstitial prominence. Wojciech Lockhart MD Chest CT 01/05/16 0000 Signed Impressions: Service Date/Time: Tuesday, January 05, 2016 23:15 - CONCLUSION: 1. Persistent left lower lobar consolidation. Improved consolidative infiltrates in the right lower lung. 2. Interval increase size bilateral pleural effusions , left greater than right. Osmar Alegria MD Celiac/Hepatic Arteriogram 12/27/15 0000 Signed Impressions: Service Date/Time: December 13:41 - CONCLUSION: 1. No active GI bleed identified. Robert Mckinney MD Abdomen X-Ray 12/18/15 0000 Signed Impressions: Service Date/Time: Friday, December 18, 2015 16:05 - CONCLUSION: Feeding tube tip is at the gastric antrum. Arnaldo Elias MD Head CT 12/02/15 1013 Signed Impressions: Service Date/Time: Wednesday, December 02, 2015 11:00 - CONCLUSION: 1. No intracranial abnormality is seen. 2. Air-fluid level in the right maxillary sinus. Arnaldo Reyes MD Last Impressions Abdomen/Pelvis CT 01/23/16 0800 Signed Impressions: Service Date/Time: Saturday, January 23, 2016 09:05 - CONCLUSION: Relative to the prior study the marked distention of the stomach is reduced. There is a persistent 5 cm left upper quadrant sub-diaphragmatic fluid collection and drain in the left upper quadrant. Patient is post splenectomy. Jejunostomy is in place and ostomy is noted in the right lower abdomen. No free fluid or free air is appreciated and there is no evidence of obstruction. Bilateral pleural effusions persists small but slightly larger on the right with left lower lobe consolidation. Jared Medina MD Upper Extremity Ultrasound 01/23/16 0600 Signed Impressions: Service Date/Time: Saturday, January 23, 2016 11:29 - CONCLUSION: Normal examination. No evidence DVT Jared Medina MD Chest X-Ray 01/21/16 06 Signed Impressions: Service Date/Time: Thursday, January 21, 2016 05:12 - CONCLUSION: 1. Cardiomegaly and left retrocardiac/basilar density. 2. Slight interstitial prominence. Wojciech Lockhart MD Chest CT 01/05/16 0000 Signed Impressions: Service Date/Time: Tuesday, January 05, 2016 23:15 - CONCLUSION: 1. Persistent left lower lobar consolidation. Improved consolidative infiltrates in the right lower lung. 2. Interval increase size bilateral pleural effusions , left greater than right. Osmar Alegria MD Celiac/Hepatic Arteriogram 12/27/15 0000 Signed Impressions: Service Date/Time: December 13:41 - CONCLUSION: 1. No active GI bleed identified. Robert Mckinney MD Abdomen X-Ray 12/18/15 0000 Signed Impressions: Service Date/Time: Friday, December 18, 2015 16:05 - CONCLUSION: Feeding tube tip is at the gastric antrum. Arnaldo Elias MD Head CT 12/02/15 1013 Signed Impressions: Service Date/Time: Wednesday, December 02, 2015 11:00 - CONCLUSION: 1. No intracranial abnormality is seen. 2. Air-fluid level in the right maxillary sinus. Arnaldo Reyes MD Last 48 hours Impressions Chest X-Ray 01/07/16 0000 Signed Impressions: Service Date/Time: Thursday, January 07, 2016 04:23 - CONCLUSION: Worsening consolidation or atelectasis at the left mid and lower lung. Some degree of left effusion may also be contributing to this. Arnaldo Reyes MD Chest X-Ray 01/06/16 0000 Signed Impressions: Service Date/Time: Wednesday, January 06, 2016 19:46 - CONCLUSION: 1. Basilar airspace disease improved from January 04. Tracheostomy and right central line in satisfactory position. Nomi Falcon MD Abdomen/Pelvis CT 01/06/16 0000 Signed Impressions: Service Date/Time: Wednesday, January 06, 2016 22:07 - CONCLUSION: 1. Over the last day there is development of a large mass in the left upper quadrant measuring up to 18 x 13 cm which appears to be associated with the stomach. The mass is characterized by somewhat concentric areas of decreased and increased attenuation with multiple locules of air. Primary differential diagnosis is hemorrhage into the gastric wall with gastric pneumatosis and possibly gastric ischemia. Gastrostomy is again noted anteriorly. 2. Remainder the exam is relatively stable with drainage tube left upper quadrant, splenectomy, bilateral effusions, feeding jejunostomy and drain within the pelvis. There is also diffuse anasarca and nonobstructing renal calculi. Nomi Falcon MD Last Impressions Chest X-Ray 12/17/15 0600 Signed Impressions: Service Date/Time: Thursday, December 17, 2015 03:25 - CONCLUSION: Persistent left lower lobe consolidation. Osmar Alegria MD Chest CT 12/14/15 0000 Signed Impressions: Service Date/Time: Monday, December 14, 2015 06:12 - CONCLUSION: 1. Cardiomegaly with bilateral consolidation, likely CHF. Pneumonia cannot be excluded. 2. Small right pleural effusion. Wojciech Lockhart MD Abdomen X-Ray 12/06/15 0000 Signed Impressions: Service Date/Time: November 09:53 - CONCLUSION: Nonspecific KUB. Air is seen within a mildly distended colon but contrast is clearly seen in the rectum. Arnaldo Reyes MD Abdomen/Pelvis CT 12/04/15 0000 Signed Impressions: Service Date/Time: Friday, December 04, 2015 16:24 - CONCLUSION: 1. Mildly distended small bowel in the mid and lower abdomen. Contrast is clearly seen extending into the distal small bowel and ascending colon so a complete obstruction is not seen. A transition point is not seen. This pattern likely represents an ileus versus a partial obstruction. 2. Multiple nonobstructing renal stones. 3. Abnormal appearance of the spleen which appears to represent a splenule. It could be correlated if the patient has had either primary splenic removal or splenic injury and this is what is either left of the spleen or a developing splenule. This is likely of no significance. 4. Mild ascites. 5. Increased density within the gallbladder representing either tumefactive sludge or noncalcified stones. 6. Mild bilateral pleural effusions with prominent areas of lower lobe atelectasis or consolidation at the bases bilaterally. 7. Subacute to chronic bilateral rib fractures and multiple compression fractures in the lower thoracic and lumbar spine as described above. The patient does have a prior CT examination from 08/26/2014. All the compression deformities described above are new when compared to that scan. Arnaldo Reyes MD Head CT 12/02/15 1013 Signed Impressions: Service Date/Time: Wednesday, December 02, 2015 11:00 - CONCLUSION: 1. No intracranial abnormality is seen. 2. Air-fluid level in the right maxillary sinus. Arnaldo Reyes MD Objective Remarks Jevity 1.5 @ 60 mL per hour, Beneprotein QID GENERAL: Middle-aged chronically critically ill-appearing male, lying in bed, on Tpiece via trach. HEENT: NCAT. mucous membranes moist. NECK: trach in place. RESPIRATORY: On Tpiece, . Breath sounds present bilaterally clear to auscultation, no wheezing . CARDIOVASCULAR: regular, tachycardic ~95-104. Sinus tach on monitor. No murmurs rubs or gallops. GASTROINTESTINAL: J tube in place with tube feeds running . Gauze dressings in place inferior aspect of midline incision. BEV drains x 2 serous drainage. Ostomy with soft brown colored stool. Normoactive bowel sounds. MUSCULOSKELETAL: Generalized anasarca, pitting edema 2+ bilateral feet. Multiple open wounds in the lower extremity, without exudate NEURO: Awake,and responsive. Opens eyes spontaneously, makes eye contact . Moves bilateral feet to commands. 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 Status: Acute (3) Altered mental status ICD Code: R41.82 Status: Acute (4) Sepsis ICD Code: A41.9 Status: Acute Assessment and Plan Assessment: Neuro: Acute encephalopathy secondary to sepsis Acute pain secondary to multiple soft tissue infections Acute post-surgical pain Chronic pain -Pt alert, responsive, moving extremities on command - GCS 11T - fentanyl patch 75mcg/h q3d for long acting pain control - Tylenol 650mg per tube q6h discontinued 01/15 - Dilaudid 2mg Iv q4h prn for breakthrough pain, VAS 10 continues at 6/10 every 2 hours and requires every 2 hours consider de-escalation,and transitioning to other PO narcotics - oxycodone 20mg per tube q4h scheduled Respiratory Acute respiratory failure-extubated 12/16/15, reintubated for surgery 12/18 Acute hypoxic and hypercarbic respiratory failure Acute healthcare associated pneumonia- resolved NIGEL on home CPAP -Maintain O2 sat greater than 92%, O2 sat on T piece and CPAP trials 94-97% - Perc Tracheostomy 12/27 (Dr. Miller). Trach exchanged 8.0 shiley with cuff on 01/19. - Vent bundle. Head of bed at 30 degrees. Duoneb q6h and prn. - Continue Tpiece trials will extend duration of Tpiece trials to 5 hours then return to CPAP 4 hrs --CXR 01/23 LLL atelectasis, resolution of pleural effusions -CT 01/22 small B/L pleural effusions L> R -. Continue fluid mobilization with lasix on PRN basis CV Hemorrhagic shock- resolved Septic Shock- resolved Volume overload Hypertension Tachycardia - Maintain MAP > 65 mmHg. MAP 95-105 - Cortisol level 14 on 12/14 - Stopped stress dose hydrocortisone on 01/12 and started prednisone 10 mg daily 01/13. If hemodynamics changing or if returns to OR would need stress dose hydrocortisone again. - Echo 12/07 EF 65-70%, grade I diastolic dysfunction. - Metoprolol 25 every 8 hours( begun 01/22), resolution of hypertension FENRenal: DEIRDRE Hypernatremia (resolved) Hypophosphatemia(resolved) Anasarca, third spacing. Severe hypoalbuminemia - Hypernatremia resolved . Na 145 Free water flushes, decreased to every 12 hours. We'll continue to monitor -Creatinine. Urine eos negative. Off vancomycin. Avoid nephrotoxins. -Monitor BMP- replete electrolytes per ICU protocol -Multivitamin q/day -Albumin 1.1- Beneprotein 1 packet increased to QID 01/25. -Obtain albumin, pre-albumin, total protein labs GI Acute GIB, hemorrhagic shock (resolved, now with recurrent anemia but not shock) Perforated right colon with colitis s/p ex-lap, extended right hemicolectomy with primary ileocolic anastamosis, washout, open abdomen (12/18) s/p Ex lap 01/05 for bleeding gastric ulcer Acute protein calorie malnutrition- severe Chronic hepatitis C s/p interferon/ribavirin years ago. Liver biopsy 04/14/08 Melena-resolved 01/22 Severe protein calorie malnutrition - EGD 12/26/15 showed 2 large gastric ulcers with active bleeding status post epinephrine infusion and cauterization - OR on 12/24 with Removal of VAC, washout, pancreatic drain and pelvic drain placement, gastrostomy, feeding jejunostomy and closure of abdomen with application of VAC device in the subcutaneous tissue. -to OR 01/05 with GI bleeding and hemorrhagic shock. Had bleeding gastric ulcer and pneumatosis of stomach. Underwent gastrotomy with ligation of gastric ulcer , lysis of adhesions, wound VAC placement -01/16 Endoscopy showed - ulcers at antrum and cardia without stigmata of bleeding and no exposed vessel. Granulation tissue at suture line without bleeding. Small ulceration there also without bleeding. Duodenum normal. At low risk for UGI bleeding per GI, okay for anticoagulation from their point of view. Avoid NSAIDS/ASA. NGT removed 01/16, to remain out per GI; Dr. Sanchez. Repeat EGD in 2 months ( Mar)per GI recs. -Prior TPN stopped 01/01. Again on TPN 01/08-01/14. -Continue Protonix 40 g IV q12h -Continue Jevity 1.5 goal rate at 60 mL per hour per nutrition/ GI recommendations. -CT abdomen pelvis without contrast reevaluated by Radiology 01/23 No noted 5 cm left upper quadrant subdiaphragmatic fluid collection, assessment by IR cancelled -Albumin 1.1 , Continue Beneprotein 1 packet QID followed by flush of 30 cc H2O with each dose. Obtain Albumin , T.Protein levels and weekly Prealbumin levels.Consider increasing Beneprotein to 2 packets QID Heme: Acute Anemia secondary to acute blood loss Thrombocytopenia Hypofibrinogenemia secondary to consumption and acute blood loss Coagulopathy secondary to consumption and acute blood loss --monitor CBC --Hep PLT ab negative on 12/03 - Ferrous Sulfate 300mg bid - transfused 3 units PRBCs 01/05- -Hgb of 6.6 on 01/16 was a lab error. The hemoglobin was 8.2 on recheck without any transfusion provided. -Hgb 7.2 from 8.0 -downtrending will continue to monitor- no obvious signs of bleeding, no additional IVF's were given ID Severe sepsis Necrotizing Fascitis - MSSA on wound culture 12/07. Ecoli bacteremia 12/01 MSSA bacteremia 12/05. Cleared on f/u blood culture 12/07, 12/12. Candidemia (blood culture 01/04 with Nava parapsilosis) Sepsis of Intra-abdominal origin. C. difficile toxic megacolon (based on pathology C diff vs ischemia, C diff test negative) Bacteremia- gram positive cocci 01/21 --Debridement 12/01 p.m at bedside by Dr Pedro and Dr. Hartmann --R hand, forearm and olecranon bursa I and D and Wound vac 12/07 Dr Chavez. -- ABX per ID: Now on Fluconazole alone 01/09 #11 Previously: cefepime 12/17-01/16,flagyl IV 12/17-01/16 , Vancomycin 01/04-01/16 ( trough 20 on 01/15). Micafungin stopped per ID 01/08. Amphotericin B started by ID on 01/08 and stopped 01/09. Nava parapsilosis in blood culture from 01/04 most likely from an intra- abdominal source(central line was changed on 01/04). Last set of blood cultures have been negative. BEV drain with cloudy drainage 01/14, now clear serous. General surgery aware and following. Noted WBC 18 from , if continues uptrend or if evidence of recurrent sepsis off abx, will discuss repeat CT abd/pelvis with surgery. Seen by Dr. Wu 01/13 and no evidence of endogenous fungal endophthalmitis ID following, Dr. Becerra 01/23 blood culture -staph hemolyticus 01/22 noted oral thrush- Nystatin 5 ml QID (swish and spit)(day 3) Wound care following for wounds- Wound vac discontinued 01/21 -Plastic Surgery requested for reassessment of LUE and skin care protocol for left arm 01/20, following recommendations --12/17 blood cultures: NGTD 12/17 central line culture: NGTD 12/17 urine cultures: NGTD 12/17 sputum cultures: NGTD C. difficile toxin 12/17: Negative (3rd negative toxin screen) -01/04 Blood culture with nava parapsilosis 01/04: horn culture, bronch with BAL, 01/04: CT chest/abd/pelvis without contrast: LLL consolidation, otherwise unchanged. 01/04: clinically LLL VAP. 01/08 Blood cultures: no growth 01/09 blood culture peripheral - NGTD 01/12 sputum cutlure - neg 01/12 - urine culture NGTD. 01/23- Bld culture-Staph hemolyticus 01/22- Oral Thrush Endocrine: Hyperglycemia of Critical Illness Diabetes - off Insulin drip - Levemir BID on hold, not clinically indicated at this time - On low-dose insulin sliding scale with bedside glucose every 6 hours, not requiring coverage. Glucose at 117 - Prednisone 10mg po daily since 01/13. Previously was on prednisone as an outpatient. Has been on hydrocortisone intermittently when he has gone to the OR or decompensated. - Tube feeding resumed Jevity 1.5 @ 60cc/hr @ goal MSK: -Daily functional maintenance of extremities x 4 -US LUE 01/22- negative for DVT -Multi-Podis soft boots prevent foot drop -PT eval and treat -OOB to recliner chair daily , currently tolerating 2 hours Prophylaxis: GI Prophylaxis: -- Protonix IV BID DVT Prophylaxis: - SCDs Heparin SQ 5000 u discontinued 01/23, after 1 dose . No chemical DVT Prophylaxis , OOB to chair and daily functional maintenance of extremities x 4 ACCESS: --PIV x 2. Right IJ TLC 01/04-01/15 #12. PT/OT. OOB. Discuss BLOCK CAPTAIN at bedside. This patient remains critically ill with one or more organ systems which are or may become a threat to life. I have spent in excess of 31 minutes discontinuously in the care and management of this patient. This time is exclusive of procedures, and includes, but is not limited to, evaluation of the patient, review of the medical record, discussions with family, consultants, nursing staff, or respiratory therapy, and documentation in the medical record. Physician Fe Poole Problem Qualifiers (1) Respiratory failure: Qualified Code: J96.00 - Acute respiratory failure, unspecified whether with hypoxia or hypercapnia (2) Altered mental status: Qualified Code: R41.0 - Delirium (3) Sepsis: Qualified Code: A41.9 - Sepsis, due to unspecified organism Fe Poole MD Jan 26, 2016 15:35
[2016-01-26] MEDS: LABETALOL HCL 100 MG/20 ML VIAL IV PRN (17:39)
[2016-01-27] VITALS (17 sets, daily range): BP systolic 137–194; BP diastolic 71–103; PULSE 100–122; RESP 16–36; TEMP 98.4–100.4; O2SAT 95–100
[2016-01-27] MEDS: HYDROmorphone HCL PF 2 MG/ML VIAL IV PUSH PRN ×5 (00:46→21:22)
[2016-01-27] MEDS: METOPROLOL TARTRATE 25 MG TAB TUBE SCH ×3 (02:26→21:21)
[2016-01-27] MEDS: RESP: ALBUTEROL 2.5 MG/IPRATROPIUM 0.5 MG NEB (SCH) NEB ×4 (03:44→21:28)
[2016-01-27] MEDS: CHLORHEXIDINE GLUCONATE 2 % 1 PACK (2 CLOTHS) TOP SCH (04:00)
[2016-01-27] MEDS: PANTOPRAZOLE SODIUM 40 MG VIAL IV PUSH SCH ×2 (04:02→17:11)
[2016-01-27] MEDS: oxyCODONE HCL ORAL CONC 20 MG/ML SYRINGE PO SCH ×5 (04:03→21:21)
[2016-01-27 04:25] LABS: HEMATOCRIT 21.1 % (39.0-51.0); MEAN CELL VOLUME 91.1 FL (80.0-100.0); MEAN CORPUSCULAR HEMOGLOBIN 28.9 PG (27.0-34.0); MEAN CORPUSCULAR HGB CONC 31.7 % (32.0-36.0); PLATELET COUNT 193 TH/MM3 (150-450); RED BLOOD COUNT 2.31 MIL/MM3 (4.50-5.90); RED CELL DISTRIBUTION WIDTH 18.6 % (11.6-17.2); WHITE BLOOD COUNT 18.6 TH/MM3 (4.0-11.0)
[2016-01-27 04:41] LABS: REVIEW FLAG FINAL
[2016-01-27 04:43] LABS: BICARBONATE 27.3 MEQ/L (21.0-32.0); MAGNESIUM 1.7 MG/DL (1.5-2.5); POTASSIUM 4.9 MEQ/L (3.5-5.1)
[2016-01-27] MEDS: INSULIN ASPART SUPPLEMENTAL SCALE SQ SCH ×3 (04:54→17:11)
[2016-01-27] MEDS: MULTIVITAMINS LIQUID 5 ML UDC TUBE SCH (07:26)
[2016-01-27] MEDS: FERROUS SULFATE 300 MG /5ML UDC TUBE SCH ×2 (07:26→21:21)
[2016-01-27] MEDS: NYSTATIN SUSP 500,000 U/5 ML CUP SWISH-SPIT SCH ×4 (07:26→21:22)
[2016-01-27] MEDS: FREE WATER G-TUBE SCH ×2 (07:27→17:00)
[2016-01-27] MEDS: POVIDONE IODINE 10% OINT 30 GM TUBE TOPICAL SCH (07:27)
[2016-01-27] MEDS: predniSONE 10 MG TAB NG SCH (07:27)
[2016-01-27] MEDS: CHLORHEXIDINE 0.12% (ORAL KIT) 15 ML CUP MT SCH ×2 (07:27→21:22)
[2016-01-27] MEDS: NEOMYCIN/POLYMYXIN/BACITRACIN OINT 15 GM TUBE TOPICAL SCH ×2 (07:28→21:22)
[2016-01-27] MEDS: SILVER SULFADIAZINE 1% CR 400 GM JAR TOPICAL SCH (07:28)
[2016-01-27] MEDS: LABETALOL HCL 100 MG/20 ML VIAL IV PRN ×2 (10:00→15:30)
[2016-01-27] MEDS: ACETAMINOPHEN 650 MG/20.3 ML UDC TUBE PRN (11:20)
[2016-01-27] MEDS: FLUCONAZOLE 400 MG PREMIX BAG 200 ML IV SCH (11:21)
[2016-01-27] MEDS: fentaNYL 75 MCG/HR PATCH TD SCH (11:21)
[2016-01-27] MEDS: REMOVE OLD PATCH TD SCH ×3 (11:21→17:00)
--- NOTE | 2016-01-27 12:04 | HHI.CCPN ---
Subjective Remarks/Hospital Course 55-year-old male brought by EMS with altered mental status. He has been confused for 2 days but this morning has been the worst. He has history of chronic opiate medications including methadone and morphine that he takes for pain management and hence they gave him Narcan IV which brought the GCS up to 13. The blood glucose was 74. He has open wounds from his right upper and bilateral lower extremities. He has history of hepatitis C. Last week he was pealing and eating shrimps. Bedside blood sugar was 76 in the ER. He was tachycardic in 1 teens and was intubated in the ED for airway protection. Admitted to ICU with sepsis due to Staph Aureus hand infection and E. Coli bacteriemia. 12/05 Patient remains sedated with Fentanyl and intubated. On Levophed 3 mics, Vasopressin 0.03 mics and Bicarb drip. T:99.8 TF placed on hold OGT to LIWS last night - gastric drainage 525ml overnight. 12/06 Patient is sedated with Fentanyl and intubated, On Levophed 3 mics, off vasopressin. Gastric output 400ml in 24 hrs. KUB abdomen yesterday mildly distended colon otherwise non specific KUB. 12/07 Patient is off sedation remains intubated tolerated CPAP for most day yesterday. Afebrile. on no drips, tolerating tube feeds. 12/08 Patient went to OR yesterday for debridement and irrigation of right forearm and wound VAC placement. Given 2U PRBC and 2u PLT yesterday and currently receiving 1of 2 u additional PRBC. Hgb 7.7, PLT 43 this morning. Patient also started on pressors now on Levophed 10 mics. Vasopressin 0.04 mics. On no sedation. 12/09 Patient remains intubated off pressors, Afebrile. Tolerating tube feeds. Afebrile. 12/10 Patient is sedated with Fentanyl and intubated. Awake and follows commands off sedation. Afebrile. 12/11 Patient had ?SVT overnight given Lopressor 2.5mg IV x1, Remains intubated and sedated with Fentanyl. Afebrile. Tolerating TF. 12/12 Patient spoked fever last night with T: 101.5, sedated with Fentanyl and intubated. 12/13 Patient had an episode of desaturation overnight required increase FIO2/ PEE now on ACV with RR 14, TV 550, PEEP: 12, FIO2 60% with sats 100% CT chest performed overnight showed b/l consolidation and small pleural effusion. Had T: 100.0 last night. 12/14 Tolerating PS 15/CPAP 10 FiO2 40% with rSBI 38, weaning. . Awake and alert , following commands. Hypotensive overnight and levophed restarted up to 12 mcg/ min. Nurse has been weaning throughout the day. Suspected adrenal insufficiency as he was on prednisone as outpatient for gout and has not been on stress dose steroids. Given decadron. 12/15 Transfused 1 unit PRBC for Hgb 7.0 yesterday, 1 unit PRBC for Hgb 6.6 today and now Hgb 8.3. Does not clinically have e/o active GI bleeding and wound vac output nonbloody. Stool 1500 output, C diff negative. No abdominal pain. Remains Awake and alert, remained on CPAP 10/5 last night and is now tolerating CPAP 5/5. 12/16: Extubated yesterday tolerating well. Breathing comfortably. Able to follow commands. UO 1.8 L in 24 hours. Na slightly increased to 153. 12/17: Significantly worse this AM. WBC up to 28 from 16. Hgb 5.2 from 7.9. tachycardic. pale this AM. states he feels tired. Continues on BiPAP. Plan for debridement of his arms today. LIJ CVL does not have any signs of overt infection. 12/18: Blood cell count continues to rise today to 30 from 28. Required 1 unit of blood for hemoglobin of 6.6 which improved to 7.7 this morning. However, patient remains tachycardic in the 120s and significantly pale. CT abdomen and pelvis ordered and pending. Tachypneic with respiratory rate in the 30s. Only small amount of dark tarry stool yesterday with approximately 300 cc of stool output. C. difficile toxin negative 3. After discussion with infectious disease, restart vancomycin, cefepime, Flagyl, micafungin. Horn cultures are pending. Per discussion with GI, will not scope as endoscopy is high risk given his tenuous respiratory status this point. Slightly worse hypernatremia as well as worsening acute kidney injury this morning. 12/19: POD 1 s/p ex-lap, washout for perforated ascending colon with extended right hemicolectomy, primary ileocolic anastamosis, open abdomen, septic shock, acute hypoxic and hypercarbic respiratory failure. Significantly critically ill overnight: required 6L ivf resuscitation, 1 unit prbc, norepinephrine, vasopressin, stress dose hydrocortisone. This morning, remains on high-dose vasopressors. still has large volume ivf requirement. Significant SIRS response. Vent requirements increasing with all this volume resuscitation, PEEP up to 10. He remains critically ill, and although I do believe we have surgical source control, I anticipate he will continue to clinically decline before he starts to make improvements. 12/20: Off pressors. follows commands on sedation holiday. +11L over last 3 days during acute illness, +22L since admission. We are going to have to get some of this volume back before we are able to close him given his severe anasarca. 12/21: Taken back to the OR yesterday afternoon for washout and completion colectomy. Postoperatively was significantly under resuscitated as well as had ongoing active oozing. Patient was coagulopathy. The patient was in distributive and hemorrhagic shock. The patient was given multiple units of blood products overnight. Patient was thrombocytopenic, hypofibrinogenemic, coagulopathic. Given significant volume of blood product resuscitation: 24h blood products: 13 prbc 8 ffp 2 plt 1 10-pack cryo This morning continues to have significant amount of bright red output out of his BVE and wound VAC, approximately 500 cc an hour out of his wound VAC, and approximately 75 an mils every 10 minutes out of a BEV. I discussed with surgery and we will correct his coagulopathy and plan to go back to the OR for exploration early this afternoon. 12/22: Clinically starting to improve hemodynamically. off vasopressors. Net+ 26L. CVP rising to 14. UOP adequate. Hgb 7 this AM. 12/23 Seen postop. Hypertensive, BP improved with additional pain medicine. Remains net positive but urine output excellent 3L in 24 hours. Remains on Lasix gtt. went to OR today status post wound VAC change and partial closure 12/24: Fascia was closed yesterday. Wound Vac in place. Remains sedated. -2L negative balance, but with increasing BUN/creat. Discontinue Bumex infusion, start scheduled Bumex 2 mg IV every 12 with IV albumin. 12/25: Overnight became hypotensive requiring Levophed to be restarted. Hemoglobin dropped to 4.1. Noted to have bloody drainage from G-tube and dorsal ileostomy with black stool output 12/26: s/p EGD yesterday-2 gastric ulcers bleeding, stomach a significant part had decreased discoloration indicating probable ischemia. s/p epi injection and cauterization. Continues to have coffee ground G tube output, black tarry Ileostomy output. Hemoglobin down to 6.4 getting 2 units of PRBC. GI recent recommending intervention radiology consult. 12/27: For trach today. Meds ordered. Hgb decline consistent with recent transfusions and senescent cells. 12/28: Trach clean, dry. Start SBTs. Check prealbumin. Continue TPN. 12/29: Looks in direction of voice. I have not seen more purposeful reactions. Line > 12 days old, replace today. Prealbumin 20 - good response to TPN. 12/30: Remains vented, encephalopathic, puss like drainage from left hand, WBC increased 01/01: no significant changes. continues to remain critically ill with minimal improvements over the last week. abdomen closed. still total body volume overloaded. 01/02: more awake today than yesterday. continues to be critically ill with minimal improvements overall. need to look towards placement. -900 yesterday. 01/03: up in chair yesterday. tolerated short run of SBT 15/5/40%. net euvolemic. wbc downtrending. 01/04: wbc slightly uptrended 33 from 30, more acidotic on BMP (14 from 20). Also spiking fevers to 102.3 despite tylenol. continues on broad spectrum abx. yesterday's cxr had what may be a new LLL infiltrate. today, though, he is following commands and more awake and alert. 01/05: LLL pna clinically and based on bronch. CT c/a/p done last night without any significant intra-abdominal change. small left pleural effusion which appears simple in nature, and LLL consolidation. ID broadened abx. today , wbc downtrending. culture data pending. Hgb 7 this AM. 01/06: Underwent exploratory laparotomy last night with findings of bleeding gastric ulcer which was oversewn by Dr. Verdin abdomen left open with wound VAC in place. Received 3 units PRBCs overnight. Remains on Wesley-Synephrine drip this morning for hypotension. Remains sedated, on mechanical ventilation. 01/07: Remains sedated, on mechanical ventilation. For abdominal incision site closure today. Significant positive fluid balance over the last 2 days. Off pressors currently. Lasix to mobilize fluid. 01/08: Remains sedated, on mechanical ventilation via tracheostomy. Underwent abdominal incision site closure this morning. Remains off pressors. Anasarca noted. Blood cultures from 01/04 growing Nava parapsilosis. 01/09: Drowsy/sedated, arousable, on mechanical ventilation via tracheostomy. TPN started yesterday. To be started on J-tube feeds per discussion with surgery 01/10: Sedated, arousable, on mechanical ventilation via tracheostomy. Remains on TPN. J-tube feeds being started today. 01/11: Was on T piece yesterday and rested on C Pap overnight. On TPN. Advanced J-tube feeds to 20 cc an hour today. Attempt T piece as tolerated. 01/12: Awake, tracks with his eyes. On C Pap overnight. Tolerated T piece during daytime yesterday. 01/13: Awake and alert. Was on T piece all day yesterday and was placed back on C Pap at 1:45 AM this morning. Does not appear to be in any acute distress. Tolerating J-tube feeds at 20 cc per hour. 01/14: Drowsy, easily arousable. Was on T piece all day yesterday and rested on C Pap at night. Tolerating J-tube feeds at 40 cc an hour with goal of 60 cc per hour. On TPN which will be discontinued after current bag. BEV drain with cloudy drainage. 01/15 Was placed back on ACV yesterday around 9 am due to tachypnea and remained on ACV overnight. Now on CPAP 11/20 and tolerating. BEV in lower abdomen had purulent output yesterday but RN states looks better today. Tolerating tube feeds, stool in ostomy. Off TPN. Removing CVL. 01/16 Hgb 6.6 on CBC this morning, lab draw, repeat pending. Tachycardia persists but otherwise no hemodynamic change. The NGT output yesterday was bilious, today brown/slight coffee grounds but mostly clear. No blood from BEV' s.Has been tolerating jejunal tube feeds, placed on hold for now. Has been tolerating CPAP 10/5 with RSBI 10s. GI/General surgery updated. 01/17 Hemoglobin 8.0. EGD performed yesterday showing gastric ulcers with no active bleeding. Abdominal wound dressing change today. Plan to begin trickle feeds today per general surgery. 01/18 Hgb 7.3. Tolerating trickle feeds that were resumed per general surgery.Tolerated Tpiece 2 hours yesterday. On CPAP 8/5 overnight. Now on Tpiece about 1 hour and doing well. Will continue intermittent Tpiece trials throughout the day with rest on CPAP in between. Watching off abx; cefepime discontinued 01/16. Remains on fluconazole for candidemia. 01/19 Trach developed cuff leak overnight. I exchanged Trach at bedside this morning. Tolerated Tpiece 2 hours, now resting on CPAP 8/5. Doing 2 piece trials up to 2 hours as tolerated tid and then plan to start extending duration of Tpiece trials from there. Tolerating tube feeds. 01/20 Tmax 99.2. Continued Protonix twice a day, noted melena continues in ostomy bag. Patient's T piece trials extended to 4 hours today, maximum toleration. Repeat blood cultures 01/19 still pending, WBC count still elevated. Wound care to be consulted for clarification of all specific dressing changes noted new reddened skin breakdown area on sacrum ,and eschar noted several areas left upper extremity all skin margins of wound noted erythematous. telephone station repairer Mattie Yost in attendance of dressing change MELITAE, noted no change in left upper extremity appearance in the last 30 days per her assessment.Requested Plastic Surgery reassess LUE and wound care protocol.Patient continues to tolerate tube feeds no residual noted. 01/21 Tmax 99.0. Overnight the patient continued to have episodes of tachycardia , some heart rate 130, appear non-pain related,requiring PRN dosing of antihypertensive meds. Blood cultures returned this morning gram positive cocci. Plan for CT of the abdomen and pelvis 01/22 discussed with and per general surgery.. Discussion of wounds with Dr. Pedro, plastic surgery yesterday, plans for reevaluation by plastic surgery and definitive/ instructions regarding wound care plan for today, of focus left upper extremity. 01/22 Afebrile. Overnight , HR remains in the low 100s-120. Systolic blood pressure remained above 160 early a.m., despite increase in frequency of metoprolol. Plan for increase in dosage of metoprolol. The patient underwent CT of the abdomen and pelvis early this a.m. showing persistent 5 cm left upper quadrant subdiaphragmatic fluid collection. Surgery aware with plans of drainage per IR. Gastroenterology following, noted ostomy output color, melena resolved recommended resumption of anticoagulation prophylactically ,but will hold with plans of IR drainage of fluid collection, per general surgery at this time. 01/23 Tmax 97.7. Overnight no acute issues, one episode of elevated blood pressure, received 1 dose of hydralazine 20 mg IV, with resolution. The patient has remained nothing by mouth for tentative IR drainage of left upper quadrant fluid collection. Imaging studies reevaluated by radiologist, noted no fluid collection is observed in the left upper quadrant. Tentative scheduling of IR drainage canceled. Tube feeds resumed and DVT prophylaxis, heparin resumed. Albumin level 1.1, Beneprotein added to diet twice a day, tolerated, will increase to QID. 01/24 Overnight the patient was noted to have small amount of bleeding around trach site, surgeon was notified and gel foam was applied. Of note the patient' s SQ heparin prophylaxis was resumed and he had received 1 dose at 2100. Heparin DVT prophylaxis was discontinued, chest x-ray was performed, which was was basically unremarkable with the exception of left lower lobe atelectasis. Yesterday the patient was placed out of bed in recliner chair and remained out of bed for 3 hours. 01/25 No bleeding noted around trach site overnight. Subcutaneous heparin continues to be on hold. The patient to T piece trial was advanced to 5 hours yesterday, patient was only able to maintain 4.5 hours before tiring out. We' ll continue to attempt Tpiece trials to 5 hours. The patient's Beneprotein has been advanced to 4 times a day. The patient is out of bed to chair 2 hours each day, utilizing PT for functional maintenance of extremities 4 daily. Minimal drainage from BEV . Subjective: 01/26 Reportedly was on Tpiece yesterday about 5 hours. Then got out of bed to stretcher chair for a couple of hours and then after went back to bed was tachypneic despite CPAP and was on ACV overnight until about noon today when placed back on CPAP 01/20 which he is currently tolerating well. Transfused 1 unit PRBC this morning for Hgb 6.7 that was symptomatic with heart rate 120s. Now heart rate 101. Tolerating tube feeds. Objective Vital Signs Date Time Temp Pulse Resp B/P Pulse Ox O2 Delivery O2 Flow Rate FiO2 01/27/16 11:49 100 45 01/27/16 10:00 120 01/27/16 08:00 100.4 32 155/79 01/26/16 20:13 Nasal Cannula 3.00 Intake and Output 01/26/16 01/26/16 01/27/16 08:00 16:00 00:00 Intake Total 726 ml 765 ml 414 ml Output Total 610 ml 630 ml 620 ml Balance 116 ml 135 ml -206 ml Result Diagram: 01/27/16 0329 01/27/16 0329 Imaging Last Impressions Chest X-Ray 01/24/16 0000 Signed Impressions: Service Date/Time: January 23:12 - CONCLUSION: 1. Left lower lobe atelectasis versus pneumonia. There has been no significant change when compared to the prior exam. Tracheostomy tube is in expected position Ramone Hall MD Abdomen/Pelvis CT 01/23/16 0800 Signed Impressions: Service Date/Time: Saturday, January 23, 2016 09:05 - CONCLUSION: Relative to the prior study the marked distention of the stomach is reduced. There is a persistent 5 cm left upper quadrant sub-diaphragmatic fluid collection and drain in the left upper quadrant. Patient is post splenectomy. Jejunostomy is in place and ostomy is noted in the right lower abdomen. No free fluid or free air is appreciated and there is no evidence of obstruction. Bilateral pleural effusions persists small but slightly larger on the right with left lower lobe consolidation. Jared Medina MD ADDENDUM: I have reviewed the images with respect to her request made for left subdiaphragmatic drainage of a fluid collection. No fluid collection is observed within the left upper quadrant. There is residual splenic tissue that measures 5 cm in diameter with Hounsfield units 62. The stomach fundus extends up into the subdiaphragmatic location. No subdiaphragmatic fluid collection is observed. Surgical drains are noted. Osmar Chavez Jr., MD Upper Extremity Ultrasound 01/23/16 0600 Signed Impressions: Service Date/Time: Saturday, January 23, 2016 11:29 - CONCLUSION: Normal examination. No evidence DVT Jared Medina MD Chest CT 01/05/16 0000 Signed Impressions: Service Date/Time: Tuesday, January 05, 2016 23:15 - CONCLUSION: 1. Persistent left lower lobar consolidation. Improved consolidative infiltrates in the right lower lung. 2. Interval increase size bilateral pleural effusions , left greater than right. Osmar Alegria MD Celiac/Hepatic Arteriogram 12/27/15 0000 Signed Impressions: Service Date/Time: December 13:41 - CONCLUSION: 1. No active GI bleed identified. Robert Mckinney MD Abdomen X-Ray 12/18/15 0000 Signed Impressions: Service Date/Time: Friday, December 18, 2015 16:05 - CONCLUSION: Feeding tube tip is at the gastric antrum. Arnaldo Elias MD Head CT 12/02/15 1013 Signed Impressions: Service Date/Time: Wednesday, December 02, 2015 11:00 - CONCLUSION: 1. No intracranial abnormality is seen. 2. Air-fluid level in the right maxillary sinus. Arnaldo Reyes MD Last Impressions Abdomen/Pelvis CT 01/23/16 0800 Signed Impressions: Service Date/Time: Saturday, January 23, 2016 09:05 - CONCLUSION: Relative to the prior study the marked distention of the stomach is reduced. There is a persistent 5 cm left upper quadrant sub-diaphragmatic fluid collection and drain in the left upper quadrant. Patient is post splenectomy. Jejunostomy is in place and ostomy is noted in the right lower abdomen. No free fluid or free air is appreciated and there is no evidence of obstruction. Bilateral pleural effusions persists small but slightly larger on the right with left lower lobe consolidation. Jared Medina MD ADDENDUM: I have reviewed the images with respect to her request made for left subdiaphragmatic drainage of a fluid collection. No fluid collection is observed within the left upper quadrant. There is residual splenic tissue that measures 5 cm in diameter with Hounsfield units 62. The stomach fundus extends up into the subdiaphragmatic location. No subdiaphragmatic fluid collection is observed. Surgical drains are noted. Osmar Chavez Jr., MD Upper Extremity Ultrasound 01/23/16 0600 Signed Impressions: Service Date/Time: Saturday, January 23, 2016 11:29 - CONCLUSION: Normal examination. No evidence DVT Jared Medina MD Chest X-Ray 01/21/16 06 Signed Impressions: Service Date/Time: Thursday, January 21, 2016 05:12 - CONCLUSION: 1. Cardiomegaly and left retrocardiac/basilar density. 2. Slight interstitial prominence. Wojciech Lockhart MD Chest CT 01/05/16 0000 Signed Impressions: Service Date/Time: Tuesday, January 05, 2016 23:15 - CONCLUSION: 1. Persistent left lower lobar consolidation. Improved consolidative infiltrates in the right lower lung. 2. Interval increase size bilateral pleural effusions , left greater than right. Osmar Alegria MD Celiac/Hepatic Arteriogram 12/27/15 0000 Signed Impressions: Service Date/Time: December 13:41 - CONCLUSION: 1. No active GI bleed identified. Robert Mckinney MD Abdomen X-Ray 12/18/15 0000 Signed Impressions: Service Date/Time: Friday, December 18, 2015 16:05 - CONCLUSION: Feeding tube tip is at the gastric antrum. Arnaldo Elias MD Head CT 12/02/15 1013 Signed Impressions: Service Date/Time: Wednesday, December 02, 2015 11:00 - CONCLUSION: 1. No intracranial abnormality is seen. 2. Air-fluid level in the right maxillary sinus. Arnaldo Reyes MD Last Impressions Abdomen/Pelvis CT 01/23/16 0800 Signed Impressions: Service Date/Time: Saturday, January 23, 2016 09:05 - CONCLUSION: Relative to the prior study the marked distention of the stomach is reduced. There is a persistent 5 cm left upper quadrant sub-diaphragmatic fluid collection and drain in the left upper quadrant. Patient is post splenectomy. Jejunostomy is in place and ostomy is noted in the right lower abdomen. No free fluid or free air is appreciated and there is no evidence of obstruction. Bilateral pleural effusions persists small but slightly larger on the right with left lower lobe consolidation. Jared Medina MD Upper Extremity Ultrasound 01/23/16 0600 Signed Impressions: Service Date/Time: Saturday, January 23, 2016 11:29 - CONCLUSION: Normal examination. No evidence DVT Jared Medina MD Chest X-Ray 01/21/16 0600 Signed Impressions: Service Date/Time: Thursday, January 21, 2016 05:12 - CONCLUSION: 1. Cardiomegaly and left retrocardiac/basilar density. 2. Slight interstitial prominence. Wojciech Lockhart MD Chest CT 01/05/16 0000 Signed Impressions: Service Date/Time: Tuesday, January 05, 2016 23:15 - CONCLUSION: 1. Persistent left lower lobar consolidation. Improved consolidative infiltrates in the right lower lung. 2. Interval increase size bilateral pleural effusions , left greater than right. Osmar Alegria MD Celiac/Hepatic Arteriogram 12/27/15 0000 Signed Impressions: Service Date/Time: December 13:41 - CONCLUSION: 1. No active GI bleed identified. Robert Mckinney MD Abdomen X-Ray 12/18/15 0000 Signed Impressions: Service Date/Time: Friday, December 18, 2015 16:05 - CONCLUSION: Feeding tube tip is at the gastric antrum. Arnaldo Elias MD Head CT 12/02/15 1013 Signed Impressions: Service Date/Time: Wednesday, December 02, 2015 11:00 - CONCLUSION: 1. No intracranial abnormality is seen. 2. Air-fluid level in the right maxillary sinus. Arnaldo Reyes MD Last 48 hours Impressions Chest X-Ray 01/07/16 0000 Signed Impressions: Service Date/Time: Thursday, January 07, 2016 04:23 - CONCLUSION: Worsening consolidation or atelectasis at the left mid and lower lung. Some degree of left effusion may also be contributing to this. Arnaldo Reyes MD Chest X-Ray 01/06/16 0000 Signed Impressions: Service Date/Time: Wednesday, January 06, 2016 19:46 - CONCLUSION: 1. Basilar airspace disease improved from January 04. Tracheostomy and right central line in satisfactory position. Nomi Falcon MD Abdomen/Pelvis CT 01/06/16 0000 Signed Impressions: Service Date/Time: Wednesday, January 06, 2016 22:07 - CONCLUSION: 1. Over the last day there is development of a large mass in the left upper quadrant measuring up to 18 x 13 cm which appears to be associated with the stomach. The mass is characterized by somewhat concentric areas of decreased and increased attenuation with multiple locules of air. Primary differential diagnosis is hemorrhage into the gastric wall with gastric pneumatosis and possibly gastric ischemia. Gastrostomy is again noted anteriorly. 2. Remainder the exam is relatively stable with drainage tube left upper quadrant, splenectomy, bilateral effusions, feeding jejunostomy and drain within the pelvis. There is also diffuse anasarca and nonobstructing renal calculi. Nomi Falcon MD Last Impressions Chest X-Ray 12/17/15 0600 Signed Impressions: Service Date/Time: Thursday, December 17, 2015 03:25 - CONCLUSION: Persistent left lower lobe consolidation. Osmar Alegria MD Chest CT 12/14/15 0000 Signed Impressions: Service Date/Time: Monday, December 14, 2015 06:12 - CONCLUSION: 1. Cardiomegaly with bilateral consolidation, likely CHF. Pneumonia cannot be excluded. 2. Small right pleural effusion. Wojciech Lockhart MD Abdomen X-Ray 12/06/15 0000 Signed Impressions: Service Date/Time: November 09:53 - CONCLUSION: Nonspecific KUB. Air is seen within a mildly distended colon but contrast is clearly seen in the rectum. Arnaldo Reyes MD Abdomen/Pelvis CT 12/04/15 0000 Signed Impressions: Service Date/Time: Friday, December 04, 2015 16:24 - CONCLUSION: 1. Mildly distended small bowel in the mid and lower abdomen. Contrast is clearly seen extending into the distal small bowel and ascending colon so a complete obstruction is not seen. A transition point is not seen. This pattern likely represents an ileus versus a partial obstruction. 2. Multiple nonobstructing renal stones. 3. Abnormal appearance of the spleen which appears to represent a splenule. It could be correlated if the patient has had either primary splenic removal or splenic injury and this is what is either left of the spleen or a developing splenule. This is likely of no significance. 4. Mild ascites. 5. Increased density within the gallbladder representing either tumefactive sludge or noncalcified stones. 6. Mild bilateral pleural effusions with prominent areas of lower lobe atelectasis or consolidation at the bases bilaterally. 7. Subacute to chronic bilateral rib fractures and multiple compression fractures in the lower thoracic and lumbar spine as described above. The patient does have a prior CT examination from 08/26/2014. All the compression deformities described above are new when compared to that scan. Arnaldo Reyes MD Head CT 12/02/15 1013 Signed Impressions: Service Date/Time: Wednesday, December 02, 2015 11:00 - CONCLUSION: 1. No intracranial abnormality is seen. 2. Air-fluid level in the right maxillary sinus. Arnaldo Reyes MD Objective Remarks Jevity 1.5 @ 60 mL per hour, Beneprotein QID GENERAL: Middle-aged chronically critically ill-appearing male, lying in bed, on CPAP / via trach. HEENT: NCAT. mucous membranes moist. NECK: [address], no active bleeding. RESPIRATORY: Breath sounds present bilaterally, diminished L base, clear without wheezing or rhonchi. CARDIOVASCULAR: regular, tachycardic ~98-104. Sinus tach on monitor. No murmurs rubs or gallops. GASTROINTESTINAL: J tube in place with tube feeds running . Gauze dressings in place inferior aspect of midline incision. BEV drain suprapubic with an ostomy bag around it collecting drainage around BEV, serous. L side BEV slightly cloudy. Ostomy with soft brown colored stool. Normoactive bowel sounds. MUSCULOSKELETAL: Pitting edema 2+ bilateral feet and hands but anasarca is improved c/w a week ago. No significant thigh edema. Multiple open wounds in the lower extremity have been dressed with gauze. NEURO: Awake,and responsive. Opens eyes spontaneously, makes eye contact, nods to questioning and mouths words . Moves bilateral feet to commands. Able to lift Left arm off of bed about 6 inches, has gross motor movement both hands bilaterally 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 Status: Acute (3) Altered mental status ICD Code: R41.82 Status: Acute (4) Sepsis ICD Code: A41.9 Status: Acute Assessment and Plan Assessment: Neuro: Acute encephalopathy secondary to sepsis improved. Acute post-surgical pain Chronic pain ICU acquired weakness. -Pt alert, responsive, moving extremities on command - Increase fentanyl patch 125mcg/h q3d in view of ongoing significant Dilaudid IV requirement. - On oxycodone 20mg per tube q4h scheduled. Scheduled acetaminophen was discontinued 01/15 in view of prior h/o Hep C with hepatic fibrosis. - Dilaudid 2-4mg Iv q2h prn for breakthrough pain Respiratory Acute respiratory failure-extubated 12/16/15, reintubated for surgery 12/18 Acute hypoxic and hypercarbic respiratory failure Acute healthcare associated pneumonia- resolved NIGEL on home CPAP - Perc Tracheostomy 12/27 (Dr. Miller). Trach exchanged 8.0 shiley with cuff on 01/19. - Vent bundle. Head of bed at 30 degrees. Duoneb q6h and prn. - Has been doing progressively extending Tpiece trials, though was back on ACV overnihgt. CXR looks unchanged. On CPAP now. Will get out of bed. Continue efforts at Tpiece trials. -In view of ongoing challenges with weaning, will request CT guided thoracentesis on the left. --CXR 01/23 LLL atelectasis, resolution of pleural effusions -CT 01/22 small B/L pleural effusions L> R -. Continue fluid mobilization with lasix on PRN basis CV Hemorrhagic shock- resolved Septic Shock- resolved Volume overload Hypertension Tachycardia - Maintain MAP > 65 mmHg. - Cortisol level 14 on 12/14 - Stopped stress dose hydrocortisone on 01/12 and started prednisone 10 mg daily 01/13. If hemodynamics changing or if returns to OR would need stress dose hydrocortisone again. - Echo 12/07 EF 65-70%, grade I diastolic dysfunction. - Increase Metoprolol 37.5 every 8 hours. Consider resuming home lisinopril if remains hypertensive and renal function remains normal. FENRenal: DEIRDRE (resolved) Hypernatremia Hypophosphatemia(resolved) Anasarca, third spacing. Severe hypoalbuminemia - Hypernatremia again, mild with FWD of 1.1 L. Free water flushes 200 q8. -Creatinine normalized. Urine eos negative. Off vancomycin. Avoiding nephrotoxins. -Monitor BMP- replete electrolytes per ICU protocol -Multivitamin q/day GI Acute GIB, hemorrhagic shock (resolved, now with recurrent anemia but not shock) Perforated right colon with colitis s/p ex-lap, extended right hemicolectomy with primary ileocolic anastamosis, washout, open abdomen (12/18) s/p Ex lap 01/05 for bleeding gastric ulcer Acute protein calorie malnutrition- severe Chronic hepatitis C s/p interferon/ribavirin years ago. Liver biopsy 04/14/08 Melena-resolved 01/22 Severe protein calorie malnutrition - EGD 12/26/15 showed 2 large gastric ulcers with active bleeding status post epinephrine infusion and cauterization - OR on 12/24 with Removal of VAC, washout, pancreatic drain and pelvic drain placement, gastrostomy, feeding jejunostomy and closure of abdomen with application of VAC device in the subcutaneous tissue. -to OR 01/05 with GI bleeding and hemorrhagic shock. Had bleeding gastric ulcer and pneumatosis of stomach. Underwent gastrotomy with ligation of gastric ulcer , lysis of adhesions, wound VAC placement -01/16 Endoscopy showed - ulcers at antrum and cardia without stigmata of bleeding and no exposed vessel. Granulation tissue at suture line without bleeding. Small ulceration there also without bleeding. Duodenum normal. At low risk for UGI bleeding per GI, okay for anticoagulation from their point of view. Avoid NSAIDS/ASA. NGT removed 01/16, to remain out per GI; Dr. Sanchez. Repeat EGD in 2 months ( Mar)per GI recs. -Prior TPN stopped 01/01. Again on TPN 01/08-01/14. -Continue Protonix 40 g IV q12h -Albumin 1.1- Beneprotein 1 packet increased to QID 01/25. -Prealbumin 14 on 01/26. Will increase Jevity goal rate to 65/hr based on nutritions most recent recommendations. Can repeat prealbumin in a week and if not improving, consider metabolic cart. Heme: Acute Anemia secondary to acute blood loss Thrombocytopenia Hypofibrinogenemia secondary to consumption and acute blood loss Coagulopathy secondary to consumption and acute blood loss --monitor CBC. Hgb is 7-8. Becomes symptomatic (tachycardic) when <7. Transfuse as needed. Had EGD 01/16 in view of anemia but no evidence of bleeding. Melena resolved. No obvious active bleeding. Transfused 1 unit PRBC in am of 01/26. Will f/u hgb. --Hep PLT ab negative on 12/03 - Ferrous Sulfate 300mg bid -Of note, Hgb of 6.6 on 01/16 was a lab error. The hemoglobin was 8.2 on recheck without any transfusion provided. ID Severe sepsis Necrotizing Fascitis - MSSA on wound culture 12/07. Ecoli bacteremia 12/01 MSSA bacteremia 12/05. Cleared on f/u blood culture 12/07, 12/12. Candidemia (blood culture 01/04 with Nava parapsilosis) Sepsis of Intra-abdominal origin. C. difficile toxic megacolon (based on pathology C diff vs ischemia, C diff test negative) Bacteremia- gram positive cocci 01/21 --Debridement 12/01 p.m at bedside by Dr Pedro and Dr. Hartmann --R hand, forearm and olecranon bursa I and D and Wound vac 12/07 Dr Chavez. Nava parapsilosis in blood culture from 01/04 most likely from an intra- abdominal source(central line was changed on 01/04). Subsequent blood cultures have been negative for yeast. Seen by Dr. Wu 01/13 and no evidence of endogenous fungal endophthalmitis -- ABX per ID: Now on Fluconazole alone 01/09 #18 Previously: cefepime 12/17-01/16,flagyl IV 12/17-01/16 , Vancomycin 01/04-01/16 ( trough 20 on 01/15). Micafungin stopped per ID 01/08. Amphotericin B started by ID on 01/08 and stopped 01/09. BEV drain with cloudy drainage. General surgery aware and following. CT abdomen 01/22 - 5 cm sub diaphragmatic fluid collection status post splenectomy. Initially there were plans for IR to drain however interventional radiologist reviewed images and states that there appears to be residual splenic tissue without drainable fluid collection. ID following, Dr. Becerra 01/23 blood culture -staph hemolyticus, felt to be contaminant. 01/22 noted oral thrush- Nystatin 5 ml QID (swish and spit)(day 3) WBC 18 today, temp 100.4. CXR unchanged LLL consolidation. Check sputum culture and followup blood culture and urine. Wound care following for wounds- Wound vac discontinued 01/21 -Plastic Surgery requested for reassessment of LUE and skin care protocol for left arm 01/20, following recommendations --12/17 blood cultures: NGTD 12/17 central line culture: NGTD 12/17 urine cultures: NGTD 12/17 sputum cultures: NGTD C. difficile toxin 12/17: Negative (3rd negative toxin screen) -01/04 Blood culture with nava parapsilosis 01/04: horn culture, bronch with BAL, 01/04: CT chest/abd/pelvis without contrast: LLL consolidation, otherwise unchanged. 01/04: clinically LLL VAP. 01/08 Blood cultures: no growth 01/09 blood culture peripheral - NGTD 01/12 sputum cutlure - neg 01/12 - urine culture NGTD. 01/23- Bld culture-Staph hemolyticus 01/22- Oral Thrush Endocrine: Hyperglycemia of Critical Illness Diabetes - off Insulin drip - Levemir BID on hold, not clinically indicated at this time - On low-dose insulin sliding scale with bedside glucose every 6 hours, not requiring coverage. - Prednisone 10mg po daily since 01/13. Previously was on prednisone as an outpatient. Has been on hydrocortisone intermittently when he has gone to the OR or decompensated. MSK: -Daily functional maintenance of extremities x 4 -US LUE 01/22- negative for DVT -Multi-Podis soft boots prevent foot drop -PT eval and treat -OOB to recliner chair daily , currently tolerating 2 hours Prophylaxis: GI Prophylaxis: -- Protonix IV BID DVT Prophylaxis: - SCDs Heparin SQ 5000 u subcut discontinued 01/23, after 1 dose due to bleeding at trach . No chemical DVT Prophylaxis, OOB to chair and daily functional maintenance of extremities x 4 ACCESS: --PIV x 2. Right IJ TLC 01/04-01/15 #12. PT/OT. OOB to stretcher chair. Discuss EMPLOYEE DEVELOPMENT SPECIALIST at bedside. Level 2 Problem Qualifiers (1) Respiratory failure: Qualified Code: J96.00 - Acute respiratory failure, unspecified whether with hypoxia or hypercapnia (2) Altered mental status: Qualified Code: R41.0 - Delirium (3) Sepsis: Qualified Code: A41.9 - Sepsis, due to unspecified organism Isabela Gonzalez MD Jan 27, 2016 12:04 (3) Sepsis: Qualified Code: A41.9 - Sepsis, due to unspecified organism Isabela Gonzalez MD Jan 27, 2016 12:04 Isabela Gonzalez MD Jan 27, 2016 12:04
--- NOTE | 2016-01-27 15:27 | HHI.PR ---
Subjective Subjective Notes awake alert, feels better today HH down overnight Objective Vitals/I&O Vital Signs Date Time Temp Pulse Resp B/P Pulse Ox O2 Delivery O2 Flow Rate FiO2 01/27/16 15:00 45 01/27/16 14:00 101 01/27/16 12:00 98.5 16 151/71 100 01/26/16 20:13 Nasal Cannula 3.00 Labs Laboratory Tests Test 01/27/16 01/27/16 03:29 05:36 White Blood Count 18.6 Red Blood Count 2.31 Hemoglobin 6.7 Hematocrit 21.1 Mean Corpuscular Volume 91.1 Mean Corpuscular Hemoglobin 28.9 Mean Corpuscular Hemoglobin 31.7 Concent Red Cell Distribution Width 18.6 Platelet Count 193 Mean Platelet Volume 9.6 Sodium Level 147 Potassium Level 4.9 Chloride Level 112 Carbon Dioxide Level 27.3 Anion Gap 8 Blood Urea Nitrogen 52 Creatinine 0.89 Estimat Glomerular Filtration 89 Rate Random Glucose 120 Calcium Level 8.0 Phosphorus Level 2.9 Magnesium Level 1.7 Total Protein 5.0 Albumin 1.4 Prealbumin 14 Blood Type B POSITIVE Antibody Screen NEGATIVE Crossmatch Leukocyte-Reduced Red Blood Cells Blood Bank Comment Radiology Last Impressions Chest X-Ray 12/28/15 0000 Signed Impressions: Service Date/Time: Monday, December 28, 2015 14:23 - CONCLUSION: Large left pleural effusion and left lung base consolidation. Freddy Connor MD Abdomen/Pelvis CT 12/19/15 0000 Signed Impressions: Service Date/Time: Saturday, December 19, 2015 10:57 - CONCLUSION: 1. Adjacent volume pneumoperitoneum is observed consistent with perforation of a hollow viscus. This is presumably colonic in origin due to the diffuse inflammatory process involving the colon. I do not clearly identify the source of the pneumoperitoneum however. There is mild dilatation of the small bowel likely an ileus in nature. A significant volume of ascitic fluid is noted. 2. Bibasilar atelectasis and bilateral pleural effusions. 3. Small pericardial effusion. 4. Small bilateral nonobstructing renal calculi. 5. I spoke with Dr. Sanchez concerning the findings. Osmar Chavez Jr., MD Abdomen X-Ray 12/18/15 0000 Signed Impressions: Service Date/Time: Friday, December 18, 2015 16:05 - CONCLUSION: Feeding tube tip is at the gastric antrum. Arnaldo Elias MD Chest CT 12/14/15 0000 Signed Impressions: Service Date/Time: Monday, December 14, 2015 06:12 - CONCLUSION: 1. Cardiomegaly with bilateral consolidation, likely CHF. Pneumonia cannot be excluded. 2. Small right pleural effusion. Wojciech Lockhart MD Head CT 12/02/15 1013 Signed Impressions: Service Date/Time: Wednesday, December 02, 2015 11:00 - CONCLUSION: 1. No intracranial abnormality is seen. 2. Air-fluid level in the right maxillary sinus. Arnaldo Reyes MD Narrative Exam VAC in place, wound clean, no signs of infection, no bleeding A/P Problem List: (1) Dependent on ventilator (2) Open wound of abdomen (3) Ileostomy in place (4) Jejunostomy tube present (5) S/P total colectomy (6) Acute colitis (7) Gastrostomy tube in place Assessment and Plan 55yo male s/p multiple abdominal surgeries ostomy functioning well clinically no bleeding arms to be addressed by plastic surgery consider removing JPs Problem Qualifiers (1) Open wound of abdomen: Qualified Code: S31.109D - Open wound of abdomen, subsequent encounter Tej Hartmann MD Jan 27, 2016 15:27
[2016-01-27] MEDS: hydrALAZINE HCL 20 MG/ML VIAL IV PUSH PRN (15:48)
--- NOTE | 2016-01-27 16:28 | RADRPT ---
EXAM DATE/TIME: 01/27/2016 15:43 [facility] COMPARISON: CT ABDOMEN & PELVIS W/O CONTRAST, January 23, 2016, 9:05. CHEST SINGLE AP, January 21, 2016, 5:12. CHEST SINGLE AP, January 24, 2016, 23:12. INDICATIONS : Respiratory failure. MEDICAL HISTORY : None. SURGICAL HISTORY : None. ENCOUNTER: Subsequent ACUITY: 1 week PAIN SCORE: 0/10 LOCATION: Bilateral chest FINDINGS: There is persisting consolidation in the left lower lung with loss of delineation entire left hemidia phragm. The consolidation is similar in size to prior exams dating back to 01/21/16. Stable appearan ce the right lung without focal infiltrates. Tracheostomy in place. CONCLUSION: Stable persistent left lower lobe consolidation. Osmar Alegria MD on January 27, 2016 at 16:23 Board Certified Radiologist. This report was verified electronically.
[2016-01-27 16:29] LABS: HEMATOCRIT 22.1 % (39.0-51.0); REVIEW FLAG FINAL
[2016-01-27] MEDS ORDERED: FUROSEMIDE 20 MG/2 ML VIAL IV PUSH ONE (16:45)
[2016-01-27] MEDS ORDERED: SODIUM CHLOR 0.9% 250 ML INJ 250 ML IV ONE (16:45)
[2016-01-27 17:20] LABS: BLOOD, URINE NEG (NEG); COMMENT (UR) CULT NOT INDICATED; CULTURE IF INDICATED CULT NOT INDICATED; GLUCOSE,URINE NEG (NEG); KETONE, URINE NEG (NEG); NITRITE,URINE NEG (NEG); PH, URINE 5.5 (5.0-8.5); URINE COLOR YELLOW (YELLW/STRAW)
[2016-01-27] MEDS: fentaNYL 100 MCG/HR PATCH TD SCH (17:46)
[2016-01-27] MEDS: fentaNYL 25 MCG/HR PATCH TD SCH (17:46)
[2016-01-28] VITALS (14 sets, daily range): BP systolic 133–176; BP diastolic 65–82; PULSE 96–116; RESP 18–32; TEMP 97.7–98.9; O2SAT 94–100
[2016-01-28] MEDS: oxyCODONE HCL ORAL CONC 20 MG/ML SYRINGE PO SCH ×6 (01:32→18:00)
[2016-01-28] MEDS: FREE WATER G-TUBE SCH ×3 (01:32→17:00)
[2016-01-28] MEDS: RESP: ALBUTEROL 2.5 MG/IPRATROPIUM 0.5 MG NEB (SCH) NEB ×4 (03:17→21:06)
[2016-01-28] MEDS: CHLORHEXIDINE GLUCONATE 2 % 1 PACK (2 CLOTHS) TOP SCH (04:00)
[2016-01-28] MEDS: METOPROLOL TARTRATE 25 MG TAB TUBE SCH ×3 (05:02→19:56)
[2016-01-28] MEDS: PANTOPRAZOLE SODIUM 40 MG VIAL IV PUSH SCH ×2 (05:02→17:47)
[2016-01-28] MEDS: INSULIN ASPART SUPPLEMENTAL SCALE SQ SCH ×4 (05:02→17:47)
[2016-01-28] MEDS: HYDROmorphone HCL PF 2 MG/ML VIAL IV PUSH PRN ×2 (05:23→09:17)
[2016-01-28 07:55] LABS: MEAN CELL VOLUME 91.3 FL (80.0-100.0); MEAN CORPUSCULAR HEMOGLOBIN 29.9 PG (27.0-34.0); MEAN CORPUSCULAR HGB CONC 32.8 % (32.0-36.0); PLATELET COUNT 229 TH/MM3 (150-450); RED BLOOD COUNT 2.26 MIL/MM3 (4.50-5.90); RED CELL DISTRIBUTION WIDTH 17.9 % (11.6-17.2); WHITE BLOOD COUNT 14.4 TH/MM3 (4.0-11.0)
[2016-01-28 07:59] LABS: REVIEW FLAG FINAL
[2016-01-28 08:04] LABS: HEMATOCRIT 20.6 % (39.0-51.0)
[2016-01-28 08:12] LABS: BICARBONATE 25.4 MEQ/L (21.0-32.0)
[2016-01-28] MEDS: predniSONE 10 MG TAB NG SCH (09:13)
[2016-01-28] MEDS: CHLORHEXIDINE 0.12% (ORAL KIT) 15 ML CUP MT SCH ×2 (09:13→19:57)
[2016-01-28] MEDS: NYSTATIN SUSP 500,000 U/5 ML CUP SWISH-SPIT SCH ×4 (09:14→20:02)
[2016-01-28] MEDS: POVIDONE IODINE 10% OINT 30 GM TUBE TOPICAL SCH (09:14)
[2016-01-28] MEDS: MULTIVITAMINS LIQUID 5 ML UDC TUBE SCH (09:15)
[2016-01-28] MEDS: SILVER SULFADIAZINE 1% CR 400 GM JAR TOPICAL SCH (09:15)
[2016-01-28] MEDS: FERROUS SULFATE 300 MG /5ML UDC TUBE SCH ×2 (09:15→20:02)
[2016-01-28] MEDS: NEOMYCIN/POLYMYXIN/BACITRACIN OINT 15 GM TUBE TOPICAL SCH ×2 (09:15→20:03)
--- NOTE | 2016-01-28 10:15 | HHI.PR ---
Subjective Subjective Notes Resting in bed watching TV Objective Vitals/I&O Vital Signs Date Time Temp Pulse Resp B/P Pulse Ox O2 Delivery O2 Flow Rate FiO2 01/28/16 08:20 94 45 01/28/16 07:35 T-piece 5.00 01/28/16 04:00 98.0 106 18 157/77 Labs Laboratory Tests Test 01/27/16 01/27/16 01/27/16 01/28/16 16:00 16:40 17:00 07:39 Hemoglobin 7.0 6.8 Hematocrit 22.1 20.6 Blood Type B POSITIVE Crossmatch Leukocyte-Reduced Red Blood Cells Blood Bank Comment Urine Color YELLOW Urine Turbidity HAZY Urine pH 5.5 Urine Specific [place] 1.011 Urine Protein 30 Urine Glucose (UA) NEG Urine Ketones NEG Urine Occult Blood NEG Urine Nitrite NEG Urine Bilirubin NEG Urine Urobilinogen LESS THAN 2.0 Urine Leukocyte Esterase NEG Urine RBC 1 Urine WBC 4 Urine Bacteria Microscopic Urinalysis Comment CULT NOT INDICATED White Blood Count 14.4 Red Blood Count 2.26 Mean Corpuscular Volume 91.3 Mean Corpuscular Hemoglobin 29.9 Mean Corpuscular Hemoglobin 32.8 Concent Red Cell Distribution Width 17.9 Platelet Count 229 Mean Platelet Volume 9.3 Sodium Level 147 Potassium Level 5.0 Chloride Level 112 Carbon Dioxide Level 25.4 Anion Gap 10 Blood Urea Nitrogen 45 Creatinine 0.73 Estimat Glomerular Filtration 112 Rate Random Glucose 120 Calcium Level 8.2 Date/Time Procedure Status Source Growth 01/27/16 16:00 Aerobic Blood Culture Received Blood Peripheral Pending 01/27/16 16:00 Anaerobic Blood Culture Received Blood Peripheral Pending Radiology Last Impressions Chest X-Ray 12/28/15 0000 Signed Impressions: Service Date/Time: Monday, December 28, 2015 14:23 - CONCLUSION: Large left pleural effusion and left lung base consolidation. Freddy Connor MD Abdomen/Pelvis CT 12/19/15 0000 Signed Impressions: Service Date/Time: Saturday, December 19, 2015 10:57 - CONCLUSION: 1. Adjacent volume pneumoperitoneum is observed consistent with perforation of a hollow viscus. This is presumably colonic in origin due to the diffuse inflammatory process involving the colon. I do not clearly identify the source of the pneumoperitoneum however. There is mild dilatation of the small bowel likely an ileus in nature. A significant volume of ascitic fluid is noted. 2. Bibasilar atelectasis and bilateral pleural effusions. 3. Small pericardial effusion. 4. Small bilateral nonobstructing renal calculi. 5. I spoke with Dr. Sanchez concerning the findings. Osmar Chavez Jr., MD Abdomen X-Ray 12/18/15 0000 Signed Impressions: Service Date/Time: Friday, December 18, 2015 16:05 - CONCLUSION: Feeding tube tip is at the gastric antrum. Arnaldo Elias MD Chest CT 12/14/15 0000 Signed Impressions: Service Date/Time: Monday, December 14, 2015 06:12 - CONCLUSION: 1. Cardiomegaly with bilateral consolidation, likely CHF. Pneumonia cannot be excluded. 2. Small right pleural effusion. Wojciech Lockhart MD Head CT 12/02/15 1013 Signed Impressions: Service Date/Time: Wednesday, December 02, 2015 11:00 - CONCLUSION: 1. No intracranial abnormality is seen. 2. Air-fluid level in the right maxillary sinus. Arnaldo Reyes MD Cardiovascular: Regular Lungs: Clear Abdomen: Other (see below ) Narrative Exam RIGHT arm dressing in place Abd: Midline incision--- packing removed and replaced to superior and inferior portion of incision; RIGHT BEV with serous drainage; LEFT with SS drainage; ileostomy with stool A/P Problem List: (1) Dependent on ventilator (2) Open wound of abdomen (3) Ileostomy in place (4) Jejunostomy tube present (5) S/P total colectomy (6) Acute colitis (7) Gastrostomy tube in place Assessment and Plan 55 year old male s/p ex lap; s/p colectomy; G/J tube placement and would vac change -Hmg dropped again ---6.8 but no signs of bleeding -Tolerating TF -Hmg stable -Continue to closely monitor WBC -Primapore dressing BID and PRN to midline incision ----continue packing to superior and inferior areas of incision -Monitor BEV output and drainage color ---Will discuss with Dr. Verdin about removing these -Discussed with SOURAV Brown Attending Statement patient seen at bedside hh dropped no evidence of acute bleed d/c BEV drains Attestation The exam, history, and the medical decision-making described in the above note were completed with the assistance of the mid-level provider. I reviewed and agree with the findings presented. I attest that I had a [id number] encounter with the patient on the same day, and personally performed and documented my assessment and findings in the medical record. Problem Qualifiers (1) Open wound of abdomen: Qualified Code: S31.109D - Open wound of abdomen, subsequent encounter Lurdes Felix Jan 28, 2016 10:14 Bebo Verdin MD Feb 11, 2016 23:19
[2016-01-28] MEDS: FLUCONAZOLE 400 MG PREMIX BAG 200 ML IV SCH (12:17)
--- NOTE | 2016-01-28 14:28 | RADRPT ---
EXAM DATE/TIME: 01/28/2016 12:54 INDICATIONS : Left pleural effusions. DEVICE(S): 1.) 6 Fr [id number] FLUID: Total volume of 200 cc of clear, yellow fluid was removed. Fluid was discarded. MEDICAL HISTORY : Hepatitis C. SURGICAL HISTORY : Splenectomy. ENCOUNTER: Initial ACUITY: 1 day PAIN SCORE: 3/10 LOCATION: Left chest PROCEDURE: 1. CT guided left thoracentesis. The site was prepped in sterile fashion. Full sterile technique was used, including cap, mask, steri le gloves and gown and a large sterile sheet. Hand hygiene and 2% chlorhexidine and/or betadine/alco hol prep was utilized per protocol for cutaneous antisepsis. The skin and subcutaneous tissues were infiltrated with local anesthetic solution. With the patient supine on the CT table, pole peeling machine operator images were obtained through the chest demonstrating t he left sided pleural effusion. Dermatotomy was made and the prescribed catheter was advanced into t he pleural fluid. The pleural fluid as above was removed from the hemithorax. Post procedural scan show reduction in the amount of fluid with no evidence of pneumothorax. The patient tolerated the procedure well and there were no complications. EKG and oximetry remained s table throughout the procedure. The patient was sent to recovery in stable condition. CONCLUSION: Uncomplicated CT-guided thoracentesis. Ramone Hall MD on January 28, 2016 at 14:25 Board Certified Radiologist. This report was verified electronically.
[2016-01-28] MEDS ORDERED: SODIUM CHLOR 0.9% 250 ML INJ 250 ML IV ONE (16:00)
--- NOTE | 2016-01-28 19:54 | HHI.CCPN ---
Subjective Remarks/Hospital Course 55-year-old male brought by EMS with altered mental status. He has been confused for 2 days but this morning has been the worst. He has history of chronic opiate medications including methadone and morphine that he takes for pain management and hence they gave him Narcan IV which brought the GCS up to 13. The blood glucose was 74. He has open wounds from his right upper and bilateral lower extremities. He has history of hepatitis C. Last week he was pealing and eating shrimps. Bedside blood sugar was 76 in the ER. He was tachycardic in 1 teens and was intubated in the ED for airway protection. Admitted to ICU with sepsis due to Staph Aureus hand infection and E. Coli bacteriemia. 12/05 Patient remains sedated with Fentanyl and intubated. On Levophed 3 mics, Vasopressin 0.03 mics and Bicarb drip. T:99.8 TF placed on hold OGT to LIWS last night - gastric drainage 525ml overnight. 12/06 Patient is sedated with Fentanyl and intubated, On Levophed 3 mics, off vasopressin. Gastric output 400ml in 24 hrs. KUB abdomen yesterday mildly distended colon otherwise non specific KUB. 12/07 Patient is off sedation remains intubated tolerated CPAP for most day yesterday. Afebrile. on no drips, tolerating tube feeds. 12/08 Patient went to OR yesterday for debridement and irrigation of right forearm and wound VAC placement. Given 2U PRBC and 2u PLT yesterday and currently receiving 1of 2 u additional PRBC. Hgb 7.7, PLT 43 this morning. Patient also started on pressors now on Levophed 10 mics. Vasopressin 0.04 mics. On no sedation. 12/09 Patient remains intubated off pressors, Afebrile. Tolerating tube feeds. Afebrile. 12/10 Patient is sedated with Fentanyl and intubated. Awake and follows commands off sedation. Afebrile. 12/11 Patient had ?SVT overnight given Lopressor 2.5mg IV x1, Remains intubated and sedated with Fentanyl. Afebrile. Tolerating TF. 12/12 Patient spoked fever last night with T: 101.5, sedated with Fentanyl and intubated. 12/13 Patient had an episode of desaturation overnight required increase FIO2/ PEE now on ACV with RR 14, TV 550, PEEP: 12, FIO2 60% with sats 100% CT chest performed overnight showed b/l consolidation and small pleural effusion. Had T: 100.0 last night. 12/14 Tolerating PS 15/CPAP 10 FiO2 40% with rSBI 38, weaning. . Awake and alert , following commands. Hypotensive overnight and levophed restarted up to 12 mcg/ min. Nurse has been weaning throughout the day. Suspected adrenal insufficiency as he was on prednisone as outpatient for gout and has not been on stress dose steroids. Given decadron. 12/15 Transfused 1 unit PRBC for Hgb 7.0 yesterday, 1 unit PRBC for Hgb 6.6 today and now Hgb 8.3. Does not clinically have e/o active GI bleeding and wound vac output nonbloody. Stool 1500 output, C diff negative. No abdominal pain. Remains Awake and alert, remained on CPAP 10/5 last night and is now tolerating CPAP 5/5. 12/16: Extubated yesterday tolerating well. Breathing comfortably. Able to follow commands. UO 1.8 L in 24 hours. Na slightly increased to 153. 12/17: Significantly worse this AM. WBC up to 28 from 16. Hgb 5.2 from 7.9. tachycardic. pale this AM. states he feels tired. Continues on BiPAP. Plan for debridement of his arms today. LIJ CVL does not have any signs of overt infection. 12/18: Blood cell count continues to rise today to 30 from 28. Required 1 unit of blood for hemoglobin of 6.6 which improved to 7.7 this morning. However, patient remains tachycardic in the 120s and significantly pale. CT abdomen and pelvis ordered and pending. Tachypneic with respiratory rate in the 30s. Only small amount of dark tarry stool yesterday with approximately 300 cc of stool output. C. difficile toxin negative 3. After discussion with infectious disease, restart vancomycin, cefepime, Flagyl, micafungin. Horn cultures are pending. Per discussion with GI, will not scope as endoscopy is high risk given his tenuous respiratory status this point. Slightly worse hypernatremia as well as worsening acute kidney injury this morning. 12/19: POD 1 s/p ex-lap, washout for perforated ascending colon with extended right hemicolectomy, primary ileocolic anastamosis, open abdomen, septic shock, acute hypoxic and hypercarbic respiratory failure. Significantly critically ill overnight: required 6L ivf resuscitation, 1 unit prbc, norepinephrine, vasopressin, stress dose hydrocortisone. This morning, remains on high-dose vasopressors. still has large volume ivf requirement. Significant SIRS response. Vent requirements increasing with all this volume resuscitation, PEEP up to 10. He remains critically ill, and although I do believe we have surgical source control, I anticipate he will continue to clinically decline before he starts to make improvements. 12/20: Off pressors. follows commands on sedation holiday. +11L over last 3 days during acute illness, +22L since admission. We are going to have to get some of this volume back before we are able to close him given his severe anasarca. 12/21: Taken back to the OR yesterday afternoon for washout and completion colectomy. Postoperatively was significantly under resuscitated as well as had ongoing active oozing. Patient was coagulopathy. The patient was in distributive and hemorrhagic shock. The patient was given multiple units of blood products overnight. Patient was thrombocytopenic, hypofibrinogenemic, coagulopathic. Given significant volume of blood product resuscitation: 24h blood products: 13 prbc 8 ffp 2 plt 1 10-pack cryo This morning continues to have significant amount of bright red output out of his BEV and wound VAC, approximately 500 cc an hour out of his wound VAC, and approximately 75 an mils every 10 minutes out of a BEV. I discussed with surgery and we will correct his coagulopathy and plan to go back to the OR for exploration early this afternoon. 12/22: Clinically starting to improve hemodynamically. off vasopressors. Net+ 26L. CVP rising to 14. UOP adequate. Hgb 7 this AM. 12/23 Seen postop. Hypertensive, BP improved with additional pain medicine. Remains net positive but urine output excellent 3L in 24 hours. Remains on Lasix gtt. went to OR today status post wound VAC change and partial closure 12/24: Fascia was closed yesterday. Wound Vac in place. Remains sedated. -2L negative balance, but with increasing BUN/creat. Discontinue Bumex infusion, start scheduled Bumex 2 mg IV every 12 with IV albumin. 12/25: Overnight became hypotensive requiring Levophed to be restarted. Hemoglobin dropped to 4.1. Noted to have bloody drainage from G-tube and dorsal ileostomy with black stool output 12/26: s/p EGD yesterday-2 gastric ulcers bleeding, stomach a significant part had decreased discoloration indicating probable ischemia. s/p epi injection and cauterization. Continues to have coffee ground G tube output, black tarry Ileostomy output. Hemoglobin down to 6.4 getting 2 units of PRBC. GI recent recommending intervention radiology consult. 12/27: For trach today. Meds ordered. Hgb decline consistent with recent transfusions and senescent cells. 12/28: Trach clean, dry. Start SBTs. Check prealbumin. Continue TPN. 12/29: Looks in direction of voice. I have not seen more purposeful reactions. Line > 12 days old, replace today. Prealbumin 20 - good response to TPN. 12/30: Remains vented, encephalopathic, puss like drainage from left hand, WBC increased 01/01: no significant changes. continues to remain critically ill with minimal improvements over the last week. abdomen closed. still total body volume overloaded. 01/02: more awake today than yesterday. continues to be critically ill with minimal improvements overall. need to look towards placement. -900 yesterday. 01/03: up in chair yesterday. tolerated short run of SBT 15/5/40%. net euvolemic. wbc downtrending. 01/04: wbc slightly uptrended 33 from 30, more acidotic on BMP (14 from 20). Also spiking fevers to 102.3 despite tylenol. continues on broad spectrum abx. yesterday's cxr had what may be a new LLL infiltrate. today, though, he is following commands and more awake and alert. 01/05: LLL pna clinically and based on bronch. CT c/a/p done last night without any significant intra-abdominal change. small left pleural effusion which appears simple in nature, and LLL consolidation. ID broadened abx. today , wbc downtrending. culture data pending. Hgb 7 this AM. 01/06: Underwent exploratory laparotomy last night with findings of bleeding gastric ulcer which was oversewn by Dr. Verdin abdomen left open with wound VAC in place. Received 3 units PRBCs overnight. Remains on Wesley-Synephrine drip this morning for hypotension. Remains sedated, on mechanical ventilation. 01/07: Remains sedated, on mechanical ventilation. For abdominal incision site closure today. Significant positive fluid balance over the last 2 days. Off pressors currently. Lasix to mobilize fluid. 01/08: Remains sedated, on mechanical ventilation via tracheostomy. Underwent abdominal incision site closure this morning. Remains off pressors. Anasarca noted. Blood cultures from 01/04 growing Nava parapsilosis. 01/09: Drowsy/sedated, arousable, on mechanical ventilation via tracheostomy. TPN started yesterday. To be started on J-tube feeds per discussion with surgery 01/10: Sedated, arousable, on mechanical ventilation via tracheostomy. Remains on TPN. J-tube feeds being started today. 01/11: Was on T piece yesterday and rested on C Pap overnight. On TPN. Advanced J-tube feeds to 20 cc an hour today. Attempt T piece as tolerated. 01/12: Awake, tracks with his eyes. On C Pap overnight. Tolerated T piece during daytime yesterday. 01/13: Awake and alert. Was on T piece all day yesterday and was placed back on C Pap at 1:45 AM this morning. Does not appear to be in any acute distress. Tolerating J-tube feeds at 20 cc per hour. 01/14: Drowsy, easily arousable. Was on T piece all day yesterday and rested on C Pap at night. Tolerating J-tube feeds at 40 cc an hour with goal of 60 cc per hour. On TPN which will be discontinued after current bag. BEV drain with cloudy drainage. 01/15 Was placed back on ACV yesterday around 9 am due to tachypnea and remained on ACV overnight. Now on CPAP 11/20 and tolerating. BEV in lower abdomen had purulent output yesterday but RN states looks better today. Tolerating tube feeds, stool in ostomy. Off TPN. Removing CVL. 01/16 Hgb 6.6 on CBC this morning, lab draw, repeat pending. Tachycardia persists but otherwise no hemodynamic change. The NGT output yesterday was bilious, today brown/slight coffee grounds but mostly clear. No blood from BEV' s.Has been tolerating jejunal tube feeds, placed on hold for now. Has been tolerating CPAP 10/5 with RSBI 10s. GI/General surgery updated. 01/17 Hemoglobin 8.0. EGD performed yesterday showing gastric ulcers with no active bleeding. Abdominal wound dressing change today. Plan to begin trickle feeds today per general surgery. 01/18 Hgb 7.3. Tolerating trickle feeds that were resumed per general surgery.Tolerated Tpiece 2 hours yesterday. On CPAP 8/5 overnight. Now on Tpiece about 1 hour and doing well. Will continue intermittent Tpiece trials throughout the day with rest on CPAP in between. Watching off abx; cefepime discontinued 01/16. Remains on fluconazole for candidemia. 01/19 Trach developed cuff leak overnight. I exchanged Trach at bedside this morning. Tolerated Tpiece 2 hours, now resting on CPAP 8/5. Doing 2 piece trials up to 2 hours as tolerated tid and then plan to start extending duration of Tpiece trials from there. Tolerating tube feeds. 01/20 Tmax 99.2. Continued Protonix twice a day, noted melena continues in ostomy bag. Patient's T piece trials extended to 4 hours today, maximum toleration. Repeat blood cultures 01/19 still pending, WBC count still elevated. Wound care to be consulted for clarification of all specific dressing changes noted new reddened skin breakdown area on sacrum ,and eschar noted several areas left upper extremity all skin margins of wound noted erythematous. soft crab shedder Mattie Yost in attendance of dressing change MELITAE, noted no change in left upper extremity appearance in the last 30 days per her assessment.Requested Plastic Surgery reassess LUE and wound care protocol.Patient continues to tolerate tube feeds no residual noted. 01/21 Tmax 99.0. Overnight the patient continued to have episodes of tachycardia , some heart rate 130, appear non-pain related,requiring PRN dosing of antihypertensive meds. Blood cultures returned this morning gram positive cocci. Plan for CT of the abdomen and pelvis 01/22 discussed with and per general surgery.. Discussion of wounds with Dr. Pedro, plastic surgery yesterday, plans for reevaluation by plastic surgery and definitive/ instructions regarding wound care plan for today, of focus left upper extremity. 01/22 Afebrile. Overnight , HR remains in the low 100s-120. Systolic blood pressure remained above 160 early a.m., despite increase in frequency of metoprolol. Plan for increase in dosage of metoprolol. The patient underwent CT of the abdomen and pelvis early this a.m. showing persistent 5 cm left upper quadrant subdiaphragmatic fluid collection. Surgery aware with plans of drainage per IR. Gastroenterology following, noted ostomy output color, melena resolved recommended resumption of anticoagulation prophylactically ,but will hold with plans of IR drainage of fluid collection, per general surgery at this time. 01/23 Tmax 97.7. Overnight no acute issues, one episode of elevated blood pressure, received 1 dose of hydralazine 20 mg IV, with resolution. The patient has remained nothing by mouth for tentative IR drainage of left upper quadrant fluid collection. Imaging studies reevaluated by radiologist, noted no fluid collection is observed in the left upper quadrant. Tentative scheduling of IR drainage canceled. Tube feeds resumed and DVT prophylaxis, heparin resumed. Albumin level 1.1, Beneprotein added to diet twice a day, tolerated, will increase to QID. 01/24 Overnight the patient was noted to have small amount of bleeding around trach site, surgeon was notified and gel foam was applied. Of note the patient' s SQ heparin prophylaxis was resumed and he had received 1 dose at 2100. Heparin DVT prophylaxis was discontinued, chest x-ray was performed, which was was basically unremarkable with the exception of left lower lobe atelectasis. Yesterday the patient was placed out of bed in recliner chair and remained out of bed for 3 hours. 01/25 No bleeding noted around trach site overnight. Subcutaneous heparin continues to be on hold. The patient to T piece trial was advanced to 5 hours yesterday, patient was only able to maintain 4.5 hours before tiring out. We' ll continue to attempt Tpiece trials to 5 hours. The patient's Beneprotein has been advanced to 4 times a day. The patient is out of bed to chair 2 hours each day, utilizing PT for functional maintenance of extremities 4 daily. Minimal drainage from BEV . 01/26 Reportedly was on Tpiece yesterday about 5 hours. Then got out of bed to stretcher chair for a couple of hours and then after went back to bed was tachypneic despite CPAP and was on ACV overnight until about noon today when placed back on CPAP 12/5 which he is currently tolerating well. Transfused 1 unit PRBC this morning for Hgb 6.7 that was symptomatic with heart rate 120s. Now heart rate 101. Tolerating tube feeds. Subjective: 01/27: persistently anemic despite transfusions. otherwise subjectively feels much better today. cpap trials. getting 1 unit prbc today. Objective Vital Signs Date Time Temp Pulse Resp B/P Pulse Ox O2 Delivery O2 Flow Rate FiO2 01/28/16 18:00 45 01/28/16 16:00 98.6 114 21 133/65 100 01/28/16 07:35 T-piece 5.00 Intake and Output 01/27/16 01/27/16 01/28/16 08:00 16:00 00:00 Intake Total 686 ml 1236 ml 1058 ml Output Total 615 ml 850 ml 1220 ml Balance 71 ml 386 ml -162 ml Result Diagram: 01/28/16 0739 01/28/16 0739 Imaging Last Impressions Chest X-Ray 01/24/16 0000 Signed Impressions: Service Date/Time: January 23:12 - CONCLUSION: 1. Left lower lobe atelectasis versus pneumonia. There has been no significant change when compared to the prior exam. Tracheostomy tube is in expected position Ramone Hall MD Abdomen/Pelvis CT 01/23/16 0800 Signed Impressions: Service Date/Time: Saturday, January 23, 2016 09:05 - CONCLUSION: Relative to the prior study the marked distention of the stomach is reduced. There is a persistent 5 cm left upper quadrant sub-diaphragmatic fluid collection and drain in the left upper quadrant. Patient is post splenectomy. Jejunostomy is in place and ostomy is noted in the right lower abdomen. No free fluid or free air is appreciated and there is no evidence of obstruction. Bilateral pleural effusions persists small but slightly larger on the right with left lower lobe consolidation. Jared Medina MD ADDENDUM: I have reviewed the images with respect to her request made for left subdiaphragmatic drainage of a fluid collection. No fluid collection is observed within the left upper quadrant. There is residual splenic tissue that measures 5 cm in diameter with Hounsfield units 62. The stomach fundus extends up into the subdiaphragmatic location. No subdiaphragmatic fluid collection is observed. Surgical drains are noted. Osmar Chavez Jr., MD Upper Extremity Ultrasound 01/23/16 0600 Signed Impressions: Service Date/Time: Saturday, January 23, 2016 11:29 - CONCLUSION: Normal examination. No evidence DVT Jared Medina MD Chest CT 01/05/16 0000 Signed Impressions: Service Date/Time: Tuesday, January 05, 2016 23:15 - CONCLUSION: 1. Persistent left lower lobar consolidation. Improved consolidative infiltrates in the right lower lung. 2. Interval increase size bilateral pleural effusions , left greater than right. Osmar Alegria MD Celiac/Hepatic Arteriogram 12/27/15 0000 Signed Impressions: Service Date/Time: December 13:41 - CONCLUSION: 1. No active GI bleed identified. Robert Mckinney MD Abdomen X-Ray 12/18/15 0000 Signed Impressions: Service Date/Time: Friday, December 18, 2015 16:05 - CONCLUSION: Feeding tube tip is at the gastric antrum. Arnaldo Elias MD Head CT 12/02/15 1013 Signed Impressions: Service Date/Time: Wednesday, December 02, 2015 11:00 - CONCLUSION: 1. No intracranial abnormality is seen. 2. Air-fluid level in the right maxillary sinus. Arnaldo Reyes MD Last Impressions Abdomen/Pelvis CT 01/23/16 0800 Signed Impressions: Service Date/Time: Saturday, January 23, 2016 09:05 - CONCLUSION: Relative to the prior study the marked distention of the stomach is reduced. There is a persistent 5 cm left upper quadrant sub-diaphragmatic fluid collection and drain in the left upper quadrant. Patient is post splenectomy. Jejunostomy is in place and ostomy is noted in the right lower abdomen. No free fluid or free air is appreciated and there is no evidence of obstruction. Bilateral pleural effusions persists small but slightly larger on the right with left lower lobe consolidation. Jared Medina MD ADDENDUM: I have reviewed the images with respect to her request made for left subdiaphragmatic drainage of a fluid collection. No fluid collection is observed within the left upper quadrant. There is residual splenic tissue that measures 5 cm in diameter with Hounsfield units 62. The stomach fundus extends up into the subdiaphragmatic location. No subdiaphragmatic fluid collection is observed. Surgical drains are noted. Osmar Chavez Jr., MD Upper Extremity Ultrasound 01/23/16 0600 Signed Impressions: Service Date/Time: Saturday, January 23, 2016 11:29 - CONCLUSION: Normal examination. No evidence DVT Jared Medina MD Chest X-Ray 01/21/16 0600 Signed Impressions: Service Date/Time: Thursday, January 21, 2016 05:12 - CONCLUSION: 1. Cardiomegaly and left retrocardiac/basilar density. 2. Slight interstitial prominence. Wojciech Lockhart MD Chest CT 01/05/16 0000 Signed Impressions: Service Date/Time: Tuesday, January 05, 2016 23:15 - CONCLUSION: 1. Persistent left lower lobar consolidation. Improved consolidative infiltrates in the right lower lung. 2. Interval increase size bilateral pleural effusions , left greater than right. Osmar Alegria MD Celiac/Hepatic Arteriogram 12/27/15 0000 Signed Impressions: Service Date/Time: December 13:41 - CONCLUSION: 1. No active GI bleed identified. Robert Mckinney MD Abdomen X-Ray 12/18/15 0000 Signed Impressions: Service Date/Time: Friday, December 18, 2015 16:05 - CONCLUSION: Feeding tube tip is at the gastric antrum. Arnaldo Elias MD Head CT 12/02/15 1013 Signed Impressions: Service Date/Time: Wednesday, December 02, 2015 11:00 - CONCLUSION: 1. No intracranial abnormality is seen. 2. Air-fluid level in the right maxillary sinus. Arnaldo Reyes MD Last Impressions Abdomen/Pelvis CT 01/23/16 0800 Signed Impressions: Service Date/Time: Saturday, January 23, 2016 09:05 - CONCLUSION: Relative to the prior study the marked distention of the stomach is reduced. There is a persistent 5 cm left upper quadrant sub-diaphragmatic fluid collection and drain in the left upper quadrant. Patient is post splenectomy. Jejunostomy is in place and ostomy is noted in the right lower abdomen. No free fluid or free air is appreciated and there is no evidence of obstruction. Bilateral pleural effusions persists small but slightly larger on the right with left lower lobe consolidation. Jared Medina MD Upper Extremity Ultrasound 01/23/16 0600 Signed Impressions: Service Date/Time: Saturday, January 23, 2016 11:29 - CONCLUSION: Normal examination. No evidence DVT Jared Medina MD Chest X-Ray 01/21/16 0600 Signed Impressions: Service Date/Time: Thursday, January 21, 2016 05:12 - CONCLUSION: 1. Cardiomegaly and left retrocardiac/basilar density. 2. Slight interstitial prominence. Wojciech Lockhart MD Chest CT 01/05/16 0000 Signed Impressions: Service Date/Time: Tuesday, January 05, 2016 23:15 - CONCLUSION: 1. Persistent left lower lobar consolidation. Improved consolidative infiltrates in the right lower lung. 2. Interval increase size bilateral pleural effusions , left greater than right. Osmar Alegria MD Celiac/Hepatic Arteriogram 12/27/15 0000 Signed Impressions: Service Date/Time: December 13:41 - CONCLUSION: 1. No active GI bleed identified. Robert Mckinney MD Abdomen X-Ray 12/18/15 0000 Signed Impressions: Service Date/Time: Friday, December 18, 2015 16:05 - CONCLUSION: Feeding tube tip is at the gastric antrum. Arnaldo Elias MD Head CT 12/02/15 1013 Signed Impressions: Service Date/Time: Wednesday, December 02, 2015 11:00 - CONCLUSION: 1. No intracranial abnormality is seen. 2. Air-fluid level in the right maxillary sinus. Arnaldo Reyes MD Last 48 hours Impressions Chest X-Ray 01/07/16 0000 Signed Impressions: Service Date/Time: Thursday, January 07, 2016 04:23 - CONCLUSION: Worsening consolidation or atelectasis at the left mid and lower lung. Some degree of left effusion may also be contributing to this. Arnaldo Reyes MD Chest X-Ray 01/06/16 0000 Signed Impressions: Service Date/Time: Wednesday, January 06, 2016 19:46 - CONCLUSION: 1. Basilar airspace disease improved from January 04. Tracheostomy and right central line in satisfactory position. Nomi Falcon MD Abdomen/Pelvis CT 01/06/16 0000 Signed Impressions: Service Date/Time: Wednesday, January 06, 2016 22:07 - CONCLUSION: 1. Over the last day there is development of a large mass in the left upper quadrant measuring up to 18 x 13 cm which appears to be associated with the stomach. The mass is characterized by somewhat concentric areas of decreased and increased attenuation with multiple locules of air. Primary differential diagnosis is hemorrhage into the gastric wall with gastric pneumatosis and possibly gastric ischemia. Gastrostomy is again noted anteriorly. 2. Remainder the exam is relatively stable with drainage tube left upper quadrant, splenectomy, bilateral effusions, feeding jejunostomy and drain within the pelvis. There is also diffuse anasarca and nonobstructing renal calculi. Nomi Falcon MD Last Impressions Chest X-Ray 12/17/15 [id number] Signed Impressions: Service Date/Time: Thursday, December 17, 2015 03:25 - CONCLUSION: Persistent left lower lobe consolidation. Osmar Alegria MD Chest CT 12/14/15 0000 Signed Impressions: Service Date/Time: Monday, December 14, 2015 06:12 - CONCLUSION: 1. Cardiomegaly with bilateral consolidation, likely CHF. Pneumonia cannot be excluded. 2. Small right pleural effusion. Wojciech Lockhart MD Abdomen X-Ray 12/06/15 0000 Signed Impressions: Service Date/Time: November 09:53 - CONCLUSION: Nonspecific KUB. Air is seen within a mildly distended colon but contrast is clearly seen in the rectum. Arnaldo Reyes MD Abdomen/Pelvis CT 12/04/15 0000 Signed Impressions: Service Date/Time: Friday, December 04, 2015 16:24 - CONCLUSION: 1. Mildly distended small bowel in the mid and lower abdomen. Contrast is clearly seen extending into the distal small bowel and ascending colon so a complete obstruction is not seen. A transition point is not seen. This pattern likely represents an ileus versus a partial obstruction. 2. Multiple nonobstructing renal stones. 3. Abnormal appearance of the spleen which appears to represent a splenule. It could be correlated if the patient has had either primary splenic removal or splenic injury and this is what is either left of the spleen or a developing splenule. This is likely of no significance. 4. Mild ascites. 5. Increased density within the gallbladder representing either tumefactive sludge or noncalcified stones. 6. Mild bilateral pleural effusions with prominent areas of lower lobe atelectasis or consolidation at the bases bilaterally. 7. Subacute to chronic bilateral rib fractures and multiple compression fractures in the lower thoracic and lumbar spine as described above. The patient does have a prior CT examination from 08/26/2014. All the compression deformities described above are new when compared to that scan. Arnaldo Reyes MD Head CT 12/02/15 1013 Signed Impressions: Service Date/Time: Wednesday, December 02, 2015 11:00 - CONCLUSION: 1. No intracranial abnormality is seen. 2. Air-fluid level in the right maxillary sinus. Arnaldo Reyes MD Objective Remarks Jevity 1.5 @ 60 mL per hour, Beneprotein QID GENERAL: Middle-aged chronically critically ill-appearing male, lying in bed, on CPAP 01/20 via trach. HEENT: NCAT. mucous membranes moist. NECK: [address], no active bleeding. RESPIRATORY: Breath sounds present bilaterally, diminished L base, clear without wheezing or rhonchi. CARDIOVASCULAR: regular, tachycardic. Sinus tach on monitor. No murmurs rubs or gallops. GASTROINTESTINAL: J tube in place with tube feeds running . Gauze dressings in place inferior aspect of midline incision. Ostomy with soft brown colored stool. MUSCULOSKELETAL: Pitting edema 2+ bilateral feet and hands but anasarca is improved c/w a week ago. No significant thigh edema. Multiple open wounds in the lower extremity have been dressed with gauze. NEURO: Awake,and responsive. Opens eyes spontaneously, makes eye contact, nods to questioning and mouths words . Moves bilateral feet to commands. Able to lift Left arm off of bed about 6 inches, has gross motor movement both hands bilaterally 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 Status: Acute (3) Altered mental status ICD Code: R41.82 Status: Acute (4) Sepsis ICD Code: A41.9 Status: Acute Assessment and Plan Assessment: Neuro: Acute encephalopathy secondary to sepsis improved. Acute post-surgical pain Chronic pain ICU acquired weakness. -Pt alert, responsive, moving extremities on command - fentanyl patch 125mcg/h q3d in view of ongoing significant Dilaudid IV requirement. - On oxycodone 20mg per tube q4h scheduled. Scheduled acetaminophen was discontinued 01/15 in view of prior h/o Hep C with hepatic fibrosis. - Dilaudid 2-4mg Iv q2h prn for breakthrough pain Respiratory Acute respiratory failure-extubated 12/16/15, reintubated for surgery 12/18 Acute hypoxic and hypercarbic respiratory failure Acute healthcare associated pneumonia- resolved NIGEL on home CPAP - Perc Tracheostomy 12/27 (Dr. Miller). Trach exchanged 8.0 shiley with cuff on 01/19. - Vent bundle. Head of bed at 30 degrees. Duoneb q6h and prn. - Has been doing progressively extending Tpiece trials, though was back on ACV overnihgt. CXR looks unchanged. On CPAP now. Will get out of bed. Continue efforts at Tpiece trials. -In view of ongoing challenges with weaning, will request CT guided thoracentesis on the left. --CXR 01/23 LLL atelectasis, resolution of pleural effusions -CT 01/22 small B/L pleural effusions L> R -. Continue fluid mobilization with lasix on PRN basis CV Hemorrhagic shock- resolved Septic Shock- resolved Volume overload Hypertension Tachycardia - Maintain MAP > 65 mmHg. - Cortisol level 14 on 12/14 - Stopped stress dose hydrocortisone on 01/12 and started prednisone 10 mg daily 01/13. If hemodynamics changing or if returns to OR would need stress dose hydrocortisone again. - Echo 12/07 EF 65-70%, grade I diastolic dysfunction. - Metoprolol 37.5 every 8 hours. Consider resuming home lisinopril if remains hypertensive and renal function remains normal. FENRenal: DEIRDRE (resolved) Hypernatremia Hypophosphatemia(resolved) Anasarca, third spacing. Severe hypoalbuminemia - Hypernatremia again, mild with FWD of 1.1 L. Free water flushes 200 q8. -Creatinine normalized. Urine eos negative. Off vancomycin. Avoiding nephrotoxins. -Monitor BMP- replete electrolytes per ICU protocol -Multivitamin q/day GI Acute GIB, hemorrhagic shock (resolved, now with recurrent anemia but not shock) Perforated right colon with colitis s/p ex-lap, extended right hemicolectomy with primary ileocolic anastamosis, washout, open abdomen (12/18) s/p Ex lap 01/05 for bleeding gastric ulcer Acute protein calorie malnutrition- severe Chronic hepatitis C s/p interferon/ribavirin years ago. Liver biopsy 04/14/08 Melena-resolved 01/22 Severe protein calorie malnutrition - EGD 12/26/15 showed 2 large gastric ulcers with active bleeding status post epinephrine infusion and cauterization - OR on 12/24 with Removal of VAC, washout, pancreatic drain and pelvic drain placement, gastrostomy, feeding jejunostomy and closure of abdomen with application of VAC device in the subcutaneous tissue. -to OR 01/05 with GI bleeding and hemorrhagic shock. Had bleeding gastric ulcer and pneumatosis of stomach. Underwent gastrotomy with ligation of gastric ulcer , lysis of adhesions, wound VAC placement -01/16 Endoscopy showed - ulcers at antrum and cardia without stigmata of bleeding and no exposed vessel. Granulation tissue at suture line without bleeding. Small ulceration there also without bleeding. Duodenum normal. At low risk for UGI bleeding per GI, okay for anticoagulation from their point of view. Avoid NSAIDS/ASA. NGT removed 01/16, to remain out per GI; Dr. Sanchez. Repeat EGD in 2 months ( Mar)per GI recs. -Prior TPN stopped 01/01. Again on TPN 01/08-01/14. -Continue Protonix 40 g IV q12h -Albumin 1.1- Beneprotein 1 packet increased to QID 01/25. -Prealbumin 14 on 01/26. Will increase Jevity goal rate to 65/hr based on nutritions most recent recommendations. Can repeat prealbumin in a week and if not improving, consider metabolic cart. Heme: Acute Anemia secondary to acute blood loss Thrombocytopenia Hypofibrinogenemia secondary to consumption and acute blood loss Coagulopathy secondary to consumption and acute blood loss --monitor CBC. Hgb is 7-8. Becomes symptomatic (tachycardic) when <7. Transfuse as needed. Had EGD 01/16 in view of anemia but no evidence of bleeding. Melena resolved. No obvious active bleeding. Transfused 1 unit PRBC in am of 01/27. Will f/u hgb. --Hep PLT ab negative on 12/03 - Ferrous Sulfate 300mg bid - send LDH and haptoglobin with peripheral smear to r/o hemolysis. ID Severe sepsis Necrotizing Fascitis - MSSA on wound culture 12/07. Ecoli bacteremia 12/01 MSSA bacteremia 12/05. Cleared on f/u blood culture 12/07, 12/12. Candidemia (blood culture 01/04 with Nava parapsilosis) Sepsis of Intra-abdominal origin. C. difficile toxic megacolon (based on pathology C diff vs ischemia, C diff test negative) Bacteremia- gram positive cocci 01/21 --Debridement 12/01 p.m at bedside by Dr Pedro and Dr. Hartmann --R hand, forearm and olecranon bursa I and D and Wound vac 12/07 Dr Chavez. Nava parapsilosis in blood culture from 01/04 most likely from an intra- abdominal source(central line was changed on 01/04). Subsequent blood cultures have been negative for yeast. Seen by Dr. Wu 01/13 and no evidence of endogenous fungal endophthalmitis -- ABX per ID: Now on Fluconazole alone 01/09 #18 Previously: cefepime 12/17-01/16,flagyl IV 12/17-01/16 , Vancomycin 01/04-01/16 ( trough 20 on 01/15). Micafungin stopped per ID 01/08. Amphotericin B started by ID on 01/08 and stopped 01/09. BEV drain with cloudy drainage. General surgery aware and following. CT abdomen 01/22 - 5 cm sub diaphragmatic fluid collection status post splenectomy. Initially there were plans for IR to drain however interventional radiologist reviewed images and states that there appears to be residual splenic tissue without drainable fluid collection. ID following, Dr. Becerra 01/23 blood culture -staph hemolyticus, felt to be contaminant. 01/22 noted oral thrush- Nystatin 5 ml QID (swish and spit)(day 3) Wound care following for wounds- Wound vac discontinued 01/21 -Plastic Surgery requested for reassessment of LUE and skin care protocol for left arm 01/20, following recommendations --12/17 blood cultures: NGTD 12/17 central line culture: NGTD 12/17 urine cultures: NGTD 12/17 sputum cultures: NGTD C. difficile toxin 12/17: Negative (3rd negative toxin screen) -01/04 Blood culture with nava parapsilosis 01/04: horn culture, bronch with BAL, 01/04: CT chest/abd/pelvis without contrast: LLL consolidation, otherwise unchanged. 01/04: clinically LLL VAP. 01/08 Blood cultures: no growth 01/09 blood culture peripheral - NGTD 01/12 sputum cutlure - neg 01/12 - urine culture NGTD. 01/23- Bld culture-Staph hemolyticus 01/22- Oral Thrush Endocrine: Hyperglycemia of Critical Illness Diabetes - off Insulin drip - Levemir BID on hold, not clinically indicated at this time - On low-dose insulin sliding scale with bedside glucose every 6 hours, not requiring coverage. - Prednisone 10mg po daily since 01/13. Previously was on prednisone as an outpatient. Has been on hydrocortisone intermittently when he has gone to the OR or decompensated. MSK: -Daily functional maintenance of extremities x 4 -US LUE 01/22- negative for DVT -Multi-Podis soft boots prevent foot drop -PT eval and treat -OOB to recliner chair daily , currently tolerating 2 hours Prophylaxis: GI Prophylaxis: -- Protonix IV BID DVT Prophylaxis: - SCDs Heparin SQ 5000 u subcut discontinued 01/23, after 1 dose due to bleeding at trach . No chemical DVT Prophylaxis, OOB to chair and daily functional maintenance of extremities x 4 ACCESS: --PIV x 2. Right IJ TLC 01/04-01/15 #12. PT/OT. OOB to stretcher chair. Discuss [employer] at bedside. Level 2 Problem Qualifiers (1) Respiratory failure: Qualified Code: J96.00 - Acute respiratory failure, unspecified whether with hypoxia or hypercapnia (2) Altered mental status: Qualified Code: R41.0 - Delirium (3) Sepsis: Qualified Code: A41.9 - Sepsis, due to unspecified organism Jeyson Fernández MD Jan 28, 2016 19:54
[2016-01-28] MEDS: SODIUM CHLORIDE 0.9% FLUSH 5 ML FLUSH IVF PRN ×2 (21:05→23:39)
[2016-01-28] MEDS: HYDROmorphone HCL PF 4 MG/ML VIAL IV PUSH PRN ×2 (21:05→23:39)
[2016-01-28 22:40] LABS: AUTOMATED NEUTROPHIL # 9.3 TH/MM3 (1.8-7.7); BASOPHIL # 0.1 TH/MM3 (0-0.2); BASOPHIL % 0.9 % (0.0-2.0); EOSINOPHIL # 0.1 TH/MM3 (0-0.4); EOSINOPHIL % 0.6 % (0.0-4.0); HEMATOCRIT 22.1 % (39.0-51.0); HEMO FLAGS DIFF FINAL; LYMPH % 11.8 % (9.0-44.0); LYMPHOCYTE # 1.5 TH/MM3 (1.0-4.8); MEAN CELL VOLUME 91.2 FL (80.0-100.0); MEAN CORPUSCULAR HEMOGLOBIN 28.9 PG (27.0-34.0); MEAN CORPUSCULAR HGB CONC 31.7 % (32.0-36.0); MONO % 11.4 % (0.0-8.0); NEUT % 75.3 % (16.0-70.0); PLATELET COUNT 267 TH/MM3 (150-450); RED BLOOD COUNT 2.43 MIL/MM3 (4.50-5.90); RED CELL DISTRIBUTION WIDTH 18.4 % (11.6-17.2); WHITE BLOOD COUNT 12.4 TH/MM3 (4.0-11.0)
[2016-01-29] VITALS (19 sets, daily range): BP systolic 121–183; BP diastolic 63–92; PULSE 88–134; RESP 18–27; TEMP 98.3–99.4; O2SAT 97–100
[2016-01-29] MEDS: oxyCODONE HCL ORAL CONC 20 MG/ML SYRINGE PO SCH ×6 (00:42→20:36)
[2016-01-29] MEDS: hydrALAZINE HCL 20 MG/ML VIAL IV PUSH PRN ×2 (00:43→17:36)
[2016-01-29] MEDS: FREE WATER G-TUBE SCH ×3 (01:00→17:00)
[2016-01-29] MEDS: SODIUM CHLORIDE 0.9% FLUSH 5 ML FLUSH IVF PRN ×5 (01:07→20:34)
[2016-01-29] MEDS: LABETALOL HCL 100 MG/20 ML VIAL IV PRN (01:07)
[2016-01-29] MEDS ORDERED: METOPROLOL TARTRATE 5 MG/5 ML VIAL IV PUSH PRN (01:45)
[2016-01-29] MEDS: RESP: ALBUTEROL 2.5 MG/IPRATROPIUM 0.5 MG NEB (SCH) NEB ×4 (03:37→22:39)
[2016-01-29] MEDS: CHLORHEXIDINE GLUCONATE 2 % 1 PACK (2 CLOTHS) TOP SCH (04:00)
[2016-01-29] MEDS: METOPROLOL TARTRATE 25 MG TAB TUBE SCH ×3 (04:14→20:35)
[2016-01-29] MEDS: HYDROmorphone HCL PF 4 MG/ML VIAL IV PUSH PRN ×4 (04:15→20:36)
[2016-01-29 04:30] LABS: HEMATOCRIT 21.7 % (39.0-51.0); MEAN CELL VOLUME 91.2 FL (80.0-100.0); MEAN CORPUSCULAR HEMOGLOBIN 29.5 PG (27.0-34.0); MEAN CORPUSCULAR HGB CONC 32.4 % (32.0-36.0); PLATELET COUNT 281 TH/MM3 (150-450); RED BLOOD COUNT 2.38 MIL/MM3 (4.50-5.90); RED CELL DISTRIBUTION WIDTH 18.3 % (11.6-17.2); REVIEW FLAG FINAL; WHITE BLOOD COUNT 18.3 TH/MM3 (4.0-11.0)
[2016-01-29 04:35] LABS: BICARBONATE 28.2 MEQ/L (21.0-32.0)
[2016-01-29] MEDS: INSULIN ASPART SUPPLEMENTAL SCALE SQ SCH ×4 (06:00→17:46)
[2016-01-29] MEDS: PANTOPRAZOLE SODIUM 40 MG VIAL IV PUSH SCH ×2 (06:24→17:24)
[2016-01-29] MEDS: CHLORHEXIDINE 0.12% (ORAL KIT) 15 ML CUP MT SCH ×2 (08:00→20:36)
[2016-01-29] MEDS: NEOMYCIN/POLYMYXIN/BACITRACIN OINT 15 GM TUBE TOPICAL SCH ×2 (09:00→20:37)
[2016-01-29] MEDS: POVIDONE IODINE 10% OINT 30 GM TUBE TOPICAL SCH (09:00)
[2016-01-29] MEDS: SILVER SULFADIAZINE 1% CR 400 GM JAR TOPICAL SCH (09:00)
[2016-01-29] MEDS: predniSONE 10 MG TAB NG SCH (09:21)
[2016-01-29] MEDS: NYSTATIN SUSP 500,000 U/5 ML CUP SWISH-SPIT SCH ×4 (09:21→20:34)
[2016-01-29] MEDS: MULTIVITAMINS LIQUID 5 ML UDC TUBE SCH (09:23)
[2016-01-29] MEDS: FERROUS SULFATE 300 MG /5ML UDC TUBE SCH ×2 (09:23→20:34)
[2016-01-29] MEDS: FLUCONAZOLE 400 MG PREMIX BAG 200 ML IV SCH (13:04)
--- NOTE | 2016-01-29 13:49 | HHI.CCPN ---
Subjective Remarks/Hospital Course 55-year-old male brought by EMS with altered mental status. He has been confused for 2 days but this morning has been the worst. He has history of chronic opiate medications including methadone and morphine that he takes for pain management and hence they gave him Narcan IV which brought the GCS up to 13. The blood glucose was 74. He has open wounds from his right upper and bilateral lower extremities. He has history of hepatitis C. Last week he was pealing and eating shrimps. Bedside blood sugar was 76 in the ER. He was tachycardic in 1 teens and was intubated in the ED for airway protection. Admitted to ICU with sepsis due to Staph Aureus hand infection and E. Coli bacteriemia. 12/05 Patient remains sedated with Fentanyl and intubated. On Levophed 3 mics, Vasopressin 0.03 mics and Bicarb drip. T:99.8 TF placed on hold OGT to LIWS last night - gastric drainage 525ml overnight. 12/06 Patient is sedated with Fentanyl and intubated, On Levophed 3 mics, off vasopressin. Gastric output 400ml in 24 hrs. KUB abdomen yesterday mildly distended colon otherwise non specific KUB. 12/07 Patient is off sedation remains intubated tolerated CPAP for most day yesterday. Afebrile. on no drips, tolerating tube feeds. 12/08 Patient went to OR yesterday for debridement and irrigation of right forearm and wound VAC placement. Given 2U PRBC and 2u PLT yesterday and currently receiving 1of 2 u additional PRBC. Hgb 7.7, PLT 43 this morning. Patient also started on pressors now on Levophed 10 mics. Vasopressin 0.04 mics. On no sedation. 12/09 Patient remains intubated off pressors, Afebrile. Tolerating tube feeds. Afebrile. 12/10 Patient is sedated with Fentanyl and intubated. Awake and follows commands off sedation. Afebrile. 12/11 Patient had ?SVT overnight given Lopressor 2.5mg IV x1, Remains intubated and sedated with Fentanyl. Afebrile. Tolerating TF. 12/12 Patient spoked fever last night with T: 101.5, sedated with Fentanyl and intubated. 12/13 Patient had an episode of desaturation overnight required increase FIO2/ PEE now on ACV with RR 14, TV 550, PEEP: 12, FIO2 60% with sats 100% CT chest performed overnight showed b/l consolidation and small pleural effusion. Had T: 100.0 last night. 12/14 Tolerating PS 15/CPAP 10 FiO2 40% with rSBI 38, weaning. . Awake and alert , following commands. Hypotensive overnight and levophed restarted up to 12 mcg/ min. Nurse has been weaning throughout the day. Suspected adrenal insufficiency as he was on prednisone as outpatient for gout and has not been on stress dose steroids. Given decadron. 12/15 Transfused 1 unit PRBC for Hgb 7.0 yesterday, 1 unit PRBC for Hgb 6.6 today and now Hgb 8.3. Does not clinically have e/o active GI bleeding and wound vac output nonbloody. Stool 1500 output, C diff negative. No abdominal pain. Remains Awake and alert, remained on CPAP 10/5 last night and is now tolerating CPAP 5/5. 12/16: Extubated yesterday tolerating well. Breathing comfortably. Able to follow commands. UO 1.8 L in 24 hours. Na slightly increased to 153. 12/17: Significantly worse this AM. WBC up to 28 from 16. Hgb 5.2 from 7.9. tachycardic. pale this AM. states he feels tired. Continues on BiPAP. Plan for debridement of his arms today. LIJ CVL does not have any signs of overt infection. 12/18: Blood cell count continues to rise today to 30 from 28. Required 1 unit of blood for hemoglobin of 6.6 which improved to 7.7 this morning. However, patient remains tachycardic in the 120s and significantly pale. CT abdomen and pelvis ordered and pending. Tachypneic with respiratory rate in the 30s. Only small amount of dark tarry stool yesterday with approximately 300 cc of stool output. C. difficile toxin negative 3. After discussion with infectious disease, restart vancomycin, cefepime, Flagyl, micafungin. Horn cultures are pending. Per discussion with GI, will not scope as endoscopy is high risk given his tenuous respiratory status this point. Slightly worse hypernatremia as well as worsening acute kidney injury this morning. 12/19: POD 1 s/p ex-lap, washout for perforated ascending colon with extended right hemicolectomy, primary ileocolic anastamosis, open abdomen, septic shock, acute hypoxic and hypercarbic respiratory failure. Significantly critically ill overnight: required 6L ivf resuscitation, 1 unit prbc, norepinephrine, vasopressin, stress dose hydrocortisone. This morning, remains on high-dose vasopressors. still has large volume ivf requirement. Significant SIRS response. Vent requirements increasing with all this volume resuscitation, PEEP up to 10. He remains critically ill, and although I do believe we have surgical source control, I anticipate he will continue to clinically decline before he starts to make improvements. 12/20: Off pressors. follows commands on sedation holiday. +11L over last 3 days during acute illness, +22L since admission. We are going to have to get some of this volume back before we are able to close him given his severe anasarca. 12/21: Taken back to the OR yesterday afternoon for washout and completion colectomy. Postoperatively was significantly under resuscitated as well as had ongoing active oozing. Patient was coagulopathy. The patient was in distributive and hemorrhagic shock. The patient was given multiple units of blood products overnight. Patient was thrombocytopenic, hypofibrinogenemic, coagulopathic. Given significant volume of blood product resuscitation: 24h blood products: 13 prbc 8 ffp 2 plt 1 10-pack cryo This morning continues to have significant amount of bright red output out of his BEV and wound VAC, approximately 500 cc an hour out of his wound VAC, and approximately 75 an mils every 10 minutes out of a BEV. I discussed with surgery and we will correct his coagulopathy and plan to go back to the OR for exploration early this afternoon. 12/22: Clinically starting to improve hemodynamically. off vasopressors. Net+ 26L. CVP rising to 14. UOP adequate. Hgb 7 this AM. 12/23 Seen postop. Hypertensive, BP improved with additional pain medicine. Remains net positive but urine output excellent 3L in 24 hours. Remains on Lasix gtt. went to OR today status post wound VAC change and partial closure 12/24: Fascia was closed yesterday. Wound Vac in place. Remains sedated. -2L negative balance, but with increasing BUN/creat. Discontinue Bumex infusion, start scheduled Bumex 2 mg IV every 12 with IV albumin. 12/25: Overnight became hypotensive requiring Levophed to be restarted. Hemoglobin dropped to 4.1. Noted to have bloody drainage from G-tube and dorsal ileostomy with black stool output 12/26: s/p EGD yesterday-2 gastric ulcers bleeding, stomach a significant part had decreased discoloration indicating probable ischemia. s/p epi injection and cauterization. Continues to have coffee ground G tube output, black tarry Ileostomy output. Hemoglobin down to 6.4 getting 2 units of PRBC. GI recent recommending intervention radiology consult. 12/27: For trach today. Meds ordered. Hgb decline consistent with recent transfusions and senescent cells. 12/28: Trach clean, dry. Start SBTs. Check prealbumin. Continue TPN. 12/29: Looks in direction of voice. I have not seen more purposeful reactions. Line > 12 days old, replace today. Prealbumin 20 - good response to TPN. 12/30: Remains vented, encephalopathic, puss like drainage from left hand, WBC increased 01/01: no significant changes. continues to remain critically ill with minimal improvements over the last week. abdomen closed. still total body volume overloaded. 01/02: more awake today than yesterday. continues to be critically ill with minimal improvements overall. need to look towards placement. -900 yesterday. 01/03: up in chair yesterday. tolerated short run of SBT 15/5/40%. net euvolemic. wbc downtrending. 01/04: wbc slightly uptrended 33 from 30, more acidotic on BMP (14 from 20). Also spiking fevers to 102.3 despite tylenol. continues on broad spectrum abx. yesterday's cxr had what may be a new LLL infiltrate. today, though, he is following commands and more awake and alert. 01/05: LLL pna clinically and based on bronch. CT c/a/p done last night without any significant intra-abdominal change. small left pleural effusion which appears simple in nature, and LLL consolidation. ID broadened abx. today , wbc downtrending. culture data pending. Hgb 7 this AM. 01/06: Underwent exploratory laparotomy last night with findings of bleeding gastric ulcer which was oversewn by Dr. Verdin abdomen left open with wound VAC in place. Received 3 units PRBCs overnight. Remains on Wesley-Synephrine drip this morning for hypotension. Remains sedated, on mechanical ventilation. 01/07: Remains sedated, on mechanical ventilation. For abdominal incision site closure today. Significant positive fluid balance over the last 2 days. Off pressors currently. Lasix to mobilize fluid. 01/08: Remains sedated, on mechanical ventilation via tracheostomy. Underwent abdominal incision site closure this morning. Remains off pressors. Anasarca noted. Blood cultures from 01/04 growing Nava parapsilosis. 01/09: Drowsy/sedated, arousable, on mechanical ventilation via tracheostomy. TPN started yesterday. To be started on J-tube feeds per discussion with surgery 01/10: Sedated, arousable, on mechanical ventilation via tracheostomy. Remains on TPN. J-tube feeds being started today. 01/11: Was on T piece yesterday and rested on C Pap overnight. On TPN. Advanced J-tube feeds to 20 cc an hour today. Attempt T piece as tolerated. 01/12: Awake, tracks with his eyes. On C Pap overnight. Tolerated T piece during daytime yesterday. 01/13: Awake and alert. Was on T piece all day yesterday and was placed back on C Pap at 1:45 AM this morning. Does not appear to be in any acute distress. Tolerating J-tube feeds at 20 cc per hour. 01/14: Drowsy, easily arousable. Was on T piece all day yesterday and rested on C Pap at night. Tolerating J-tube feeds at 40 cc an hour with goal of 60 cc per hour. On TPN which will be discontinued after current bag. BEV drain with cloudy drainage. 01/15 Was placed back on ACV yesterday around 9 am due to tachypnea and remained on ACV overnight. Now on CPAP 11/20 and tolerating. BEV in lower abdomen had purulent output yesterday but RN states looks better today. Tolerating tube feeds, stool in ostomy. Off TPN. Removing CVL. 01/16 Hgb 6.6 on CBC this morning, lab draw, repeat pending. Tachycardia persists but otherwise no hemodynamic change. The NGT output yesterday was bilious, today brown/slight coffee grounds but mostly clear. No blood from BEV' s.Has been tolerating jejunal tube feeds, placed on hold for now. Has been tolerating CPAP 10/5 with RSBI 10s. GI/General surgery updated. 01/17 Hemoglobin 8.0. EGD performed yesterday showing gastric ulcers with no active bleeding. Abdominal wound dressing change today. Plan to begin trickle feeds today per general surgery. 01/18 Hgb 7.3. Tolerating trickle feeds that were resumed per general surgery.Tolerated Tpiece 2 hours yesterday. On CPAP 8/5 overnight. Now on Tpiece about 1 hour and doing well. Will continue intermittent Tpiece trials throughout the day with rest on CPAP in between. Watching off abx; cefepime discontinued 01/16. Remains on fluconazole for candidemia. 01/19 Trach developed cuff leak overnight. I exchanged Trach at bedside this morning. Tolerated Tpiece 2 hours, now resting on CPAP 8/5. Doing 2 piece trials up to 2 hours as tolerated tid and then plan to start extending duration of Tpiece trials from there. Tolerating tube feeds. 01/20 Tmax 99.2. Continued Protonix twice a day, noted melena continues in ostomy bag. Patient's T piece trials extended to 4 hours today, maximum toleration. Repeat blood cultures 01/19 still pending, WBC count still elevated. Wound care to be consulted for clarification of all specific dressing changes noted new reddened skin breakdown area on sacrum ,and eschar noted several areas left upper extremity all skin margins of wound noted erythematous. miller head assistant wet process Mattie Yost in attendance of dressing change MELITAE, noted no change in left upper extremity appearance in the last 30 days per her assessment.Requested Plastic Surgery reassess LUE and wound care protocol.Patient continues to tolerate tube feeds no residual noted. 01/21 Tmax 99.0. Overnight the patient continued to have episodes of tachycardia , some heart rate 130, appear non-pain related,requiring PRN dosing of antihypertensive meds. Blood cultures returned this morning gram positive cocci. Plan for CT of the abdomen and pelvis 01/22 discussed with and per general surgery.. Discussion of wounds with Dr. Pedro, plastic surgery yesterday, plans for reevaluation by plastic surgery and definitive/ instructions regarding wound care plan for today, of focus left upper extremity. 01/22 Afebrile. Overnight , HR remains in the low 100s-120. Systolic blood pressure remained above 160 early a.m., despite increase in frequency of metoprolol. Plan for increase in dosage of metoprolol. The patient underwent CT of the abdomen and pelvis early this a.m. showing persistent 5 cm left upper quadrant subdiaphragmatic fluid collection. Surgery aware with plans of drainage per IR. Gastroenterology following, noted ostomy output color, melena resolved recommended resumption of anticoagulation prophylactically ,but will hold with plans of IR drainage of fluid collection, per general surgery at this time. 01/23 Tmax 97.7. Overnight no acute issues, one episode of elevated blood pressure, received 1 dose of hydralazine 20 mg IV, with resolution. The patient has remained nothing by mouth for tentative IR drainage of left upper quadrant fluid collection. Imaging studies reevaluated by radiologist, noted no fluid collection is observed in the left upper quadrant. Tentative scheduling of IR drainage canceled. Tube feeds resumed and DVT prophylaxis, heparin resumed. Albumin level 1.1, Beneprotein added to diet twice a day, tolerated, will increase to QID. 01/24 Overnight the patient was noted to have small amount of bleeding around trach site, surgeon was notified and gel foam was applied. Of note the patient' s SQ heparin prophylaxis was resumed and he had received 1 dose at 2100. Heparin DVT prophylaxis was discontinued, chest x-ray was performed, which was was basically unremarkable with the exception of left lower lobe atelectasis. Yesterday the patient was placed out of bed in recliner chair and remained out of bed for 3 hours. 01/25 No bleeding noted around trach site overnight. Subcutaneous heparin continues to be on hold. The patient to T piece trial was advanced to 5 hours yesterday, patient was only able to maintain 4.5 hours before tiring out. We' ll continue to attempt Tpiece trials to 5 hours. The patient's Beneprotein has been advanced to 4 times a day. The patient is out of bed to chair 2 hours each day, utilizing PT for functional maintenance of extremities 4 daily. Minimal drainage from BEV . 01/26 Reportedly was on Tpiece yesterday about 5 hours. Then got out of bed to stretcher chair for a couple of hours and then after went back to bed was tachypneic despite CPAP and was on ACV overnight until about noon today when placed back on CPAP 12/5 which he is currently tolerating well. Transfused 1 unit PRBC this morning for Hgb 6.7 that was symptomatic with heart rate 120s. Now heart rate 101. Tolerating tube feeds. 01/27: persistently anemic despite transfusions. otherwise subjectively feels much better today. cpap trials. getting 1 unit prbc today. Subjective: 01/28: 1 unit prbc yesterday for hgb 6.8, recheck 7 and stable 7 this AM. dressings taken down and upper arms where skin tears are, there is small amount of oozing dark blood. likely the source of his anemia is combination blood loss from chronic oozing like this as well as long-term phlebotomy. Objective Vital Signs Date Time Temp Pulse Resp B/P Pulse Ox O2 Delivery O2 Flow Rate FiO2 01/29/16 11:40 100 50 01/29/16 06:00 108 01/29/16 04:00 99.2 18 143/65 01/28/16 07:35 T-piece 5.00 Intake and Output 01/28/16 01/28/16 01/29/16 08:00 16:00 00:00 Intake Total 769 ml 688 ml 444 ml Output Total 1030 ml 600 ml 765 ml Balance -261 ml 88 ml -321 ml Result Diagram: 01/29/16 0352 01/29/16 0352 Imaging Last Impressions Chest X-Ray 01/24/16 0000 Signed Impressions: Service Date/Time: January 23:12 - CONCLUSION: 1. Left lower lobe atelectasis versus pneumonia. There has been no significant change when compared to the prior exam. Tracheostomy tube is in expected position Ramone Hall MD Abdomen/Pelvis CT 01/23/16 0800 Signed Impressions: Service Date/Time: Saturday, January 23, 2016 09:05 - CONCLUSION: Relative to the prior study the marked distention of the stomach is reduced. There is a persistent 5 cm left upper quadrant sub-diaphragmatic fluid collection and drain in the left upper quadrant. Patient is post splenectomy. Jejunostomy is in place and ostomy is noted in the right lower abdomen. No free fluid or free air is appreciated and there is no evidence of obstruction. Bilateral pleural effusions persists small but slightly larger on the right with left lower lobe consolidation. Jaerd Medina MD ADDENDUM: I have reviewed the images with respect to her request made for left subdiaphragmatic drainage of a fluid collection. No fluid collection is observed within the left upper quadrant. There is residual splenic tissue that measures 5 cm in diameter with Hounsfield units 62. The stomach fundus extends up into the subdiaphragmatic location. No subdiaphragmatic fluid collection is observed. Surgical drains are noted. Osmar Chavez Jr., MD Upper Extremity Ultrasound 01/23/16 0600 Signed Impressions: Service Date/Time: Saturday, January 23, 2016 11:29 - CONCLUSION: Normal examination. No evidence DVT Jared Medina MD Chest CT 01/05/16 0000 Signed Impressions: Service Date/Time: Tuesday, January 05, 2016 23:15 - CONCLUSION: 1. Persistent left lower lobar consolidation. Improved consolidative infiltrates in the right lower lung. 2. Interval increase size bilateral pleural effusions , left greater than right. Osmar Alegria MD Celiac/Hepatic Arteriogram 12/27/15 0000 Signed Impressions: Service Date/Time: December 13:41 - CONCLUSION: 1. No active GI bleed identified. Robert Mckinney MD Abdomen X-Ray 12/18/15 0000 Signed Impressions: Service Date/Time: Friday, December 18, 2015 16:05 - CONCLUSION: Feeding tube tip is at the gastric antrum. Arnaldo Elias MD Head CT 12/02/15 1013 Signed Impressions: Service Date/Time: Wednesday, December 02, 2015 11:00 - CONCLUSION: 1. No intracranial abnormality is seen. 2. Air-fluid level in the right maxillary sinus. Arnaldo Reyes MD Last Impressions Abdomen/Pelvis CT 01/23/16 0800 Signed Impressions: Service Date/Time: Saturday, January 23, 2016 09:05 - CONCLUSION: Relative to the prior study the marked distention of the stomach is reduced. There is a persistent 5 cm left upper quadrant sub-diaphragmatic fluid collection and drain in the left upper quadrant. Patient is post splenectomy. Jejunostomy is in place and ostomy is noted in the right lower abdomen. No free fluid or free air is appreciated and there is no evidence of obstruction. Bilateral pleural effusions persists small but slightly larger on the right with left lower lobe consolidation. Jared Medina MD ADDENDUM: I have reviewed the images with respect to her request made for left subdiaphragmatic drainage of a fluid collection. No fluid collection is observed within the left upper quadrant. There is residual splenic tissue that measures 5 cm in diameter with Hounsfield units 62. The stomach fundus extends up into the subdiaphragmatic location. No subdiaphragmatic fluid collection is observed. Surgical drains are noted. Osmar Chavez Jr., MD Upper Extremity Ultrasound 01/23/16 0600 Signed Impressions: Service Date/Time: Saturday, January 23, 2016 11:29 - CONCLUSION: Normal examination. No evidence DVT Jared Medina MD Chest X-Ray 01/21/16 0600 Signed Impressions: Service Date/Time: Thursday, January 21, 2016 05:12 - CONCLUSION: 1. Cardiomegaly and left retrocardiac/basilar density. 2. Slight interstitial prominence. Wojciech Lockhart MD Chest CT 01/05/16 0000 Signed Impressions: Service Date/Time: Tuesday, January 05, 2016 23:15 - CONCLUSION: 1. Persistent left lower lobar consolidation. Improved consolidative infiltrates in the right lower lung. 2. Interval increase size bilateral pleural effusions , left greater than right. Osmar Alegria MD Celiac/Hepatic Arteriogram 12/27/15 0000 Signed Impressions: Service Date/Time: December 13:41 - CONCLUSION: 1. No active GI bleed identified. Robert Mckinney MD Abdomen X-Ray 12/18/15 0000 Signed Impressions: Service Date/Time: Friday, December 18, 2015 16:05 - CONCLUSION: Feeding tube tip is at the gastric antrum. Arnaldo Elias MD Head CT 12/02/15 1013 Signed Impressions: Service Date/Time: Wednesday, December 02, 2015 11:00 - CONCLUSION: 1. No intracranial abnormality is seen. 2. Air-fluid level in the right maxillary sinus. Arnaldo Reyes MD Last Impressions Abdomen/Pelvis CT 01/23/16 0800 Signed Impressions: Service Date/Time: Saturday, January 23, 2016 09:05 - CONCLUSION: Relative to the prior study the marked distention of the stomach is reduced. There is a persistent 5 cm left upper quadrant sub-diaphragmatic fluid collection and drain in the left upper quadrant. Patient is post splenectomy. Jejunostomy is in place and ostomy is noted in the right lower abdomen. No free fluid or free air is appreciated and there is no evidence of obstruction. Bilateral pleural effusions persists small but slightly larger on the right with left lower lobe consolidation. Jared Medina MD Upper Extremity Ultrasound 01/23/16 0600 Signed Impressions: Service Date/Time: Saturday, January 23, 2016 11:29 - CONCLUSION: Normal examination. No evidence DVT Jared Medina MD Chest X-Ray 01/21/16 0600 Signed Impressions: Service Date/Time: Thursday, January 21, 2016 05:12 - CONCLUSION: 1. Cardiomegaly and left retrocardiac/basilar density. 2. Slight interstitial prominence. Wojciech Lockhart MD Chest CT 01/05/16 0000 Signed Impressions: Service Date/Time: Tuesday, January 05, 2016 23:15 - CONCLUSION: 1. Persistent left lower lobar consolidation. Improved consolidative infiltrates in the right lower lung. 2. Interval increase size bilateral pleural effusions , left greater than right. Osmar Alegria MD Celiac/Hepatic Arteriogram 12/27/15 0000 Signed Impressions: Service Date/Time: December 13:41 - CONCLUSION: 1. No active GI bleed identified. Robert Mckinney MD Abdomen X-Ray 12/18/15 0000 Signed Impressions: Service Date/Time: Friday, December 18, 2015 16:05 - CONCLUSION: Feeding tube tip is at the gastric antrum. Arnaldo Elias MD Head CT 12/02/15 1013 Signed Impressions: Service Date/Time: Wednesday, December 02, 2015 11:00 - CONCLUSION: 1. No intracranial abnormality is seen. 2. Air-fluid level in the right maxillary sinus. Arnaldo Reyes MD Last 48 hours Impressions Chest X-Ray 01/07/16 0000 Signed Impressions: Service Date/Time: Thursday, January 07, 2016 04:23 - CONCLUSION: Worsening consolidation or atelectasis at the left mid and lower lung. Some degree of left effusion may also be contributing to this. Arnaldo Reyes MD Chest X-Ray 01/06/16 0000 Signed Impressions: Service Date/Time: Wednesday, January 06, 2016 19:46 - CONCLUSION: 1. Basilar airspace disease improved from January 04. Tracheostomy and right central line in satisfactory position. Nomi Falcon MD Abdomen/Pelvis CT 01/06/16 0000 Signed Impressions: Service Date/Time: Wednesday, January 06, 2016 22:07 - CONCLUSION: 1. Over the last day there is development of a large mass in the left upper quadrant measuring up to 18 x 13 cm which appears to be associated with the stomach. The mass is characterized by somewhat concentric areas of decreased and increased attenuation with multiple locules of air. Primary differential diagnosis is hemorrhage into the gastric wall with gastric pneumatosis and possibly gastric ischemia. Gastrostomy is again noted anteriorly. 2. Remainder the exam is relatively stable with drainage tube left upper quadrant, splenectomy, bilateral effusions, feeding jejunostomy and drain within the pelvis. There is also diffuse anasarca and nonobstructing renal calculi. Nomi Falcon MD Last Impressions Chest X-Ray 12/17/15 0600 Signed Impressions: Service Date/Time: Thursday, December 17, 2015 03:25 - CONCLUSION: Persistent left lower lobe consolidation. Osmar Alegria MD Chest CT 12/14/15 0000 Signed Impressions: Service Date/Time: Monday, December 14, 2015 06:12 - CONCLUSION: 1. Cardiomegaly with bilateral consolidation, likely CHF. Pneumonia cannot be excluded. 2. Small right pleural effusion. Wojciech Lockhart MD Abdomen X-Ray 12/06/15 0000 Signed Impressions: Service Date/Time: November 09:53 - CONCLUSION: Nonspecific KUB. Air is seen within a mildly distended colon but contrast is clearly seen in the rectum. Arnaldo Reyes MD Abdomen/Pelvis CT 12/04/15 0000 Signed Impressions: Service Date/Time: Friday, December 04, 2015 16:24 - CONCLUSION: 1. Mildly distended small bowel in the mid and lower abdomen. Contrast is clearly seen extending into the distal small bowel and ascending colon so a complete obstruction is not seen. A transition point is not seen. This pattern likely represents an ileus versus a partial obstruction. 2. Multiple nonobstructing renal stones. 3. Abnormal appearance of the spleen which appears to represent a splenule. It could be correlated if the patient has had either primary splenic removal or splenic injury and this is what is either left of the spleen or a developing splenule. This is likely of no significance. 4. Mild ascites. 5. Increased density within the gallbladder representing either tumefactive sludge or noncalcified stones. 6. Mild bilateral pleural effusions with prominent areas of lower lobe atelectasis or consolidation at the bases bilaterally. 7. Subacute to chronic bilateral rib fractures and multiple compression fractures in the lower thoracic and lumbar spine as described above. The patient does have a prior CT examination from 08/26/2014. All the compression deformities described above are new when compared to that scan. Arnaldo Reyes MD Head CT 12/02/15 1013 Signed Impressions: Service Date/Time: Wednesday, December 02, 2015 11:00 - CONCLUSION: 1. No intracranial abnormality is seen. 2. Air-fluid level in the right maxillary sinus. Arnaldo Reyes MD Objective Remarks Jevity 1.5 @ 60 mL per hour, Beneprotein QID GENERAL: Middle-aged chronically critically ill-appearing male, lying in bed, on CPAP 12/5 via trach. HEENT: NCAT. mucous membranes moist. NECK: [address], no active bleeding. RESPIRATORY: Breath sounds present bilaterally, diminished L base, clear without wheezing or rhonchi. CARDIOVASCULAR: regular, tachycardic. Sinus tach on monitor. No murmurs rubs or gallops. GASTROINTESTINAL: J tube in place with tube feeds running . Gauze dressings in place inferior aspect of midline incision. Ostomy with soft brown colored stool. MUSCULOSKELETAL: Pitting edema 2+ bilateral feet and hands but anasarca is improved c/w a week ago. No significant thigh edema. Multiple open wounds in the lower extremity have been dressed with gauze. NEURO: Awake,and responsive. Opens eyes spontaneously, makes eye contact, nods to questioning and mouths words . Moves bilateral feet to commands. Able to lift Left arm off of bed about 6 inches, has gross motor movement both hands bilaterally 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 Status: Acute (3) Altered mental status ICD Code: R41.82 Status: Acute (4) Sepsis ICD Code: A41.9 Status: Acute Assessment and Plan Assessment: Neuro: Acute encephalopathy secondary to sepsis improved. Acute post-surgical pain Chronic pain ICU acquired weakness. -Pt alert, responsive, moving extremities on command - fentanyl patch 125mcg/h q3d in view of ongoing significant Dilaudid IV requirement. - On oxycodone 20mg per tube q4h scheduled. Scheduled acetaminophen was discontinued 01/15 in view of prior h/o Hep C with hepatic fibrosis. - Dilaudid 2-4mg Iv q2h prn for breakthrough pain Respiratory Acute respiratory failure-extubated 12/16/15, reintubated for surgery 12/18 Acute hypoxic and hypercarbic respiratory failure Acute healthcare associated pneumonia- resolved NIGEL on home CPAP - Perc Tracheostomy 12/27 (Dr. Miller). Trach exchanged 8.0 shiley with cuff on 01/19. - Vent bundle. Head of bed at 30 degrees. Duoneb q6h and prn. - Back on ACV from thoracentesis. back to SBTs today. - CT guided thoracentesis 01/27. --CXR 01/23 LLL atelectasis, resolution of pleural effusions -. Continue fluid mobilization with lasix on PRN basis CV Hemorrhagic shock- resolved Septic Shock- resolved Volume overload Hypertension Tachycardia - Maintain MAP > 65 mmHg. - Cortisol level 14 on 12/14 - Stopped stress dose hydrocortisone on 01/12 and started prednisone 10 mg daily 01/13. will wean this to 5mg daily 01/28 for 7 days, then off. he does not need to be on long-term steroids unless he becomes critically ill again. - Echo 12/07 EF 65-70%, grade I diastolic dysfunction. - Metoprolol 37.5 every 8 hours. Consider resuming home lisinopril if remains hypertensive and renal function remains normal. FENRenal: DEIRDRE (resolved) Hypernatremia Hypophosphatemia(resolved) Anasarca, third spacing. Severe hypoalbuminemia - Hypernatremia again, mild with FWD of 1.1 L. Free water flushes 200 q8. -Creatinine normalized. Urine eos negative. Off vancomycin. Avoiding nephrotoxins. -Monitor BMP- replete electrolytes per ICU protocol -Multivitamin q/day GI Acute GIB, hemorrhagic shock (resolved, now with recurrent anemia but not shock) Perforated right colon with colitis s/p ex-lap, extended right hemicolectomy with primary ileocolic anastamosis, washout, open abdomen (12/18) s/p Ex lap 01/05 for bleeding gastric ulcer Acute protein calorie malnutrition- severe Chronic hepatitis C s/p interferon/ribavirin years ago. Liver biopsy 04/14/08 Melena-resolved 01/22 Severe protein calorie malnutrition - EGD 12/26/15 showed 2 large gastric ulcers with active bleeding status post epinephrine infusion and cauterization - OR on 12/24 with Removal of VAC, washout, pancreatic drain and pelvic drain placement, gastrostomy, feeding jejunostomy and closure of abdomen with application of VAC device in the subcutaneous tissue. -to OR 01/05 with GI bleeding and hemorrhagic shock. Had bleeding gastric ulcer and pneumatosis of stomach. Underwent gastrotomy with ligation of gastric ulcer , lysis of adhesions, wound VAC placement -01/16 Endoscopy showed - ulcers at antrum and cardia without stigmata of bleeding and no exposed vessel. Granulation tissue at suture line without bleeding. Small ulceration there also without bleeding. Duodenum normal. At low risk for UGI bleeding per GI, okay for anticoagulation from their point of view. Avoid NSAIDS/ASA. NGT removed 01/16, to remain out per GI; Dr. Sanchez. Repeat EGD in 2 months ( Mar)per GI recs. -Prior TPN stopped 01/01. Again on TPN 01/08-01/14. -Continue Protonix 40 g IV q12h -Albumin 1.1- Beneprotein 1 packet increased to QID 01/25. -Prealbumin 14 on 01/26. Jevity goal rate to 65/hr based on nutritions most recent recommendations. Can repeat prealbumin in a week and if not improving, consider metabolic cart. Heme: Acute Anemia secondary to acute blood loss Thrombocytopenia Hypofibrinogenemia secondary to consumption and acute blood loss Coagulopathy secondary to consumption and acute blood loss --monitor CBC. Hgb is 7-8. Becomes symptomatic (tachycardic) when <7. Transfuse as needed. Had EGD 01/16 in view of anemia but no evidence of bleeding. Melena resolved. No obvious active bleeding. Transfused 1 unit PRBC in am of 01/27. - does not meet transfusion triggers today. --Hep PLT ab negative on 12/03 - Ferrous Sulfate 300mg bid - send LDH and haptoglobin with peripheral smear to r/o hemolysis. ID Severe sepsis Necrotizing Fascitis - MSSA on wound culture 12/07. Ecoli bacteremia 12/01 MSSA bacteremia 12/05. Cleared on f/u blood culture 12/07, 12/12. Candidemia (blood culture 01/04 with Nava parapsilosis) Sepsis of Intra-abdominal origin. C. difficile toxic megacolon (based on pathology C diff vs ischemia, C diff test negative) Bacteremia- gram positive cocci 01/21 --Debridement 12/01 p.m at bedside by Dr Pedro and Dr. Hartmann --R hand, forearm and olecranon bursa I and D and Wound vac 12/07 Dr Chavez. Nava parapsilosis in blood culture from 01/04 most likely from an intra- abdominal source(central line was changed on 01/04). Subsequent blood cultures have been negative for yeast. Seen by Dr. Wu 01/13 and no evidence of endogenous fungal endophthalmitis -- ABX per ID: Now on Fluconazole alone 01/09 Previously: cefepime 12/17-01/16,flagyl IV 12/17-01/16 , Vancomycin 01/04-01/16 ( trough 20 on 01/15). Micafungin stopped per ID 01/08. Amphotericin B started by ID on 01/08 and stopped 01/09. CT abdomen 01/22 - 5 cm sub diaphragmatic fluid collection status post splenectomy. Initially there were plans for IR to drain however interventional radiologist reviewed images and states that there appears to be residual splenic tissue without drainable fluid collection. ID following, Dr. Becerra 01/23 blood culture -staph hemolyticus, felt to be contaminant. 01/22 noted oral thrush- Nystatin 5 ml QID (swish and spit) Wound care following for wounds- Wound vac discontinued 01/21 -Plastic Surgery requested for reassessment of LUE and skin care protocol for left arm 01/20, following recommendations --12/17 blood cultures: NGTD 12/17 central line culture: NGTD 12/17 urine cultures: NGTD 12/17 sputum cultures: NGTD C. difficile toxin 12/17: Negative (3rd negative toxin screen) -01/04 Blood culture with nava parapsilosis 01/04: horn culture, bronch with BAL, 01/04: CT chest/abd/pelvis without contrast: LLL consolidation, otherwise unchanged. 01/04: clinically LLL VAP. 01/08 Blood cultures: no growth 01/09 blood culture peripheral - NGTD 01/12 sputum cutlure - neg 01/12 - urine culture NGTD. 01/23- Bld culture-Staph hemolyticus 01/22- Oral Thrush Endocrine: Hyperglycemia of Critical Illness Diabetes - off Insulin drip - Levemir BID on hold, not clinically indicated at this time - On low-dose insulin sliding scale with bedside glucose every 6 hours, not requiring coverage. - Prednisone 10mg po daily since 01/13, weaned to 5mg po daily today. Previously was on prednisone as an outpatient. Has been on hydrocortisone intermittently when he has gone to the OR or decompensated. MSK: -Daily functional maintenance of extremities x 4 -US LUE 01/22- negative for DVT -Multi-Podis soft boots prevent foot drop -PT eval and treat -OOB to recliner chair daily , currently tolerating 2 hours Prophylaxis: GI Prophylaxis: -- Protonix IV BID DVT Prophylaxis: - SCDs Heparin SQ 5000 u subcut discontinued 01/23, after 1 dose due to bleeding at trach . No chemical DVT Prophylaxis, OOB to chair and daily functional maintenance of extremities x 4 ACCESS: --PIV x 2. PT/OT. OOB to stretcher chair. Discuss RESIDENTIAL SUBCONTRACTOR at bedside. Level 2 Problem Qualifiers (1) Respiratory failure: Qualified Code: J96.00 - Acute respiratory failure, unspecified whether with hypoxia or hypercapnia (2) Altered mental status: Qualified Code: R41.0 - Delirium (3) Sepsis: Qualified Code: A41.9 - Sepsis, due to unspecified organism Jeyson Fernández MD Jan 29, 2016 13:49
--- NOTE | 2016-01-29 15:15 | HHI.PR ---
Subjective Subjective Notes Awake/alert In good spirits Objective Vitals/I&O Vital Signs Date Time Temp Pulse Resp B/P Pulse Ox O2 Delivery O2 Flow Rate FiO2 01/29/16 11:40 100 50 01/29/16 06:00 108 01/29/16 04:00 99.2 18 143/65 01/28/16 07:35 T-piece 5.00 Labs Laboratory Tests Test 01/28/16 01/28/16 01/29/16 15:54 22:14 03:52 Blood Type B POSITIVE Crossmatch Leukocyte-Reduced Red Blood Cells Blood Bank Comment White Blood Count 12.4 18.3 Red Blood Count 2.43 2.38 Hemoglobin 7.0 7.0 Hematocrit 22.1 21.7 Mean Corpuscular Volume 91.2 91.2 Mean Corpuscular Hemoglobin 28.9 29.5 Mean Corpuscular Hemoglobin 31.7 32.4 Concent Red Cell Distribution Width 18.4 18.3 Platelet Count 267 281 Mean Platelet Volume 9.0 9.3 Neutrophils (%) (Auto) 75.3 Lymphocytes (%) (Auto) 11.8 Monocytes (%) (Auto) 11.4 Eosinophils (%) (Auto) 0.6 Basophils (%) (Auto) 0.9 Neutrophils # (Auto) 9.3 Lymphocytes # (Auto) 1.5 Monocytes # (Auto) 1.4 Eosinophils # (Auto) 0.1 Basophils # (Auto) 0.1 CBC Comment DIFF FINAL Differential Comment Blood Smear Pathologist Review Sodium Level 148 Potassium Level 5.0 Chloride Level 113 Carbon Dioxide Level 28.2 Anion Gap 7 Blood Urea Nitrogen 42 Creatinine 0.70 Estimat Glomerular Filtration 118 Rate Random Glucose 127 Calcium Level 8.3 Date/Time Procedure Status Source Growth 01/27/16 16:00 Aerobic Blood Culture - Preliminary Resulted Blood Peripheral NO GROWTH IN 2 DAYS 01/27/16 16:00 Anaerobic Blood Culture - Preliminary Resulted Blood Peripheral NO GROWTH IN 2 DAYS Radiology Last Impressions Chest X-Ray 12/28/15 0000 Signed Impressions: Service Date/Time: Monday, December 28, 2015 14:23 - CONCLUSION: Large left pleural effusion and left lung base consolidation. Freddy Connor MD Abdomen/Pelvis CT 12/19/15 0000 Signed Impressions: Service Date/Time: Saturday, December 19, 2015 10:57 - CONCLUSION: 1. Adjacent volume pneumoperitoneum is observed consistent with perforation of a hollow viscus. This is presumably colonic in origin due to the diffuse inflammatory process involving the colon. I do not clearly identify the source of the pneumoperitoneum however. There is mild dilatation of the small bowel likely an ileus in nature. A significant volume of ascitic fluid is noted. 2. Bibasilar atelectasis and bilateral pleural effusions. 3. Small pericardial effusion. 4. Small bilateral nonobstructing renal calculi. 5. I spoke with Dr. Sanchez concerning the findings. Osmar Chavez Jr., MD Abdomen X-Ray 12/18/15 0000 Signed Impressions: Service Date/Time: Friday, December 18, 2015 16:05 - CONCLUSION: Feeding tube tip is at the gastric antrum. Arnaldo Elias MD Chest CT 12/14/15 0000 Signed Impressions: Service Date/Time: Monday, December 14, 2015 06:12 - CONCLUSION: 1. Cardiomegaly with bilateral consolidation, likely CHF. Pneumonia cannot be excluded. 2. Small right pleural effusion. Wojciech Lockhart MD Head CT 12/02/15 1013 Signed Impressions: Service Date/Time: Wednesday, December 02, 2015 11:00 - CONCLUSION: 1. No intracranial abnormality is seen. 2. Air-fluid level in the right maxillary sinus. Arnaldo Reyes MD Cardiovascular: Regular Lungs: Clear Abdomen: Other (see below ) Narrative Exam RIGHT arm dressing in place Abd: Midline incision--- packing removed and replaced to superior and inferior portion of incision; BEV drain x 2 removed; ileostomy with stool A/P Problem List: (1) Dependent on ventilator (2) Open wound of abdomen (3) Ileostomy in place (4) Jejunostomy tube present (5) S/P total colectomy (6) Acute colitis (7) Gastrostomy tube in place Assessment and Plan 55 year old male s/p ex lap; s/p colectomy; G/J tube placement and would vac change -Hmg 7.0 today with no signs of bleeding -Tolerating TF -Hmg stable -Continue to closely monitor WBC -Primapore dressing BID and PRN to midline incision ----continue packing to superior and inferior areas of incision -BEV drains removed -GS will see peripherally but please call with any questions Attending Statement patient seen at bedside continues to improve continue wound care Problem Qualifiers (1) Open wound of abdomen: Qualified Code: S31.109D - Open wound of abdomen, subsequent encounter Lurdes Felix Jan 29, 2016 15:15 Bebo Verdin MD Feb 12, 2016 11:19
[2016-01-30] VITALS (19 sets, daily range): BP systolic 141–158; BP diastolic 74–88; PULSE 87–118; RESP 16–21; TEMP 98.1–98.7; O2SAT 12–100
[2016-01-30] MEDS: FREE WATER G-TUBE SCH ×3 (00:41→16:22)
[2016-01-30] MEDS: oxyCODONE HCL ORAL CONC 20 MG/ML SYRINGE PO SCH ×6 (00:41→20:00)
[2016-01-30] MEDS: RESP: ALBUTEROL 2.5 MG/IPRATROPIUM 0.5 MG NEB (SCH) NEB ×4 (04:00→19:56)
[2016-01-30] MEDS: CHLORHEXIDINE GLUCONATE 2 % 1 PACK (2 CLOTHS) TOP SCH (04:00)
[2016-01-30 04:29] LABS: MEAN CELL VOLUME 91.7 FL (80.0-100.0); MEAN CORPUSCULAR HEMOGLOBIN 29.1 PG (27.0-34.0); MEAN CORPUSCULAR HGB CONC 31.7 % (32.0-36.0); PLATELET COUNT 299 TH/MM3 (150-450); RED BLOOD COUNT 2.28 MIL/MM3 (4.50-5.90); RED CELL DISTRIBUTION WIDTH 18.3 % (11.6-17.2); WHITE BLOOD COUNT 14.7 TH/MM3 (4.0-11.0)
[2016-01-30 04:35] LABS: REVIEW FLAG FINAL
[2016-01-30 04:40] LABS: HEMATOCRIT 20.9 % (39.0-51.0)
[2016-01-30] MEDS: HYDROmorphone HCL PF 4 MG/ML VIAL IV PUSH PRN ×4 (04:44→22:30)
[2016-01-30] MEDS: METOPROLOL TARTRATE 25 MG TAB TUBE SCH ×3 (04:45→19:58)
[2016-01-30] MEDS: SODIUM CHLORIDE 0.9% FLUSH 5 ML FLUSH IVF PRN ×3 (04:45→22:30)
[2016-01-30 05:01] LABS: BICARBONATE 29.5 MEQ/L (21.0-32.0); POTASSIUM 4.7 MEQ/L (3.5-5.1)
[2016-01-30] MEDS: INSULIN ASPART SUPPLEMENTAL SCALE SQ SCH ×4 (05:59→17:05)
[2016-01-30] MEDS: PANTOPRAZOLE SODIUM 40 MG VIAL IV PUSH SCH ×2 (06:25→18:21)
[2016-01-30] MEDS ORDERED: SODIUM CHLOR 0.9% 250 ML INJ 250 ML IV ONE (07:15)
[2016-01-30] MEDS: CHLORHEXIDINE 0.12% (ORAL KIT) 15 ML CUP MT SCH ×2 (08:00→19:57)
[2016-01-30] MEDS: SILVER SULFADIAZINE 1% CR 400 GM JAR TOPICAL SCH (09:00)
[2016-01-30] MEDS: POVIDONE IODINE 10% OINT 30 GM TUBE TOPICAL SCH (09:00)
[2016-01-30] MEDS: NEOMYCIN/POLYMYXIN/BACITRACIN OINT 15 GM TUBE TOPICAL SCH ×2 (09:00→20:00)
[2016-01-30] MEDS: NYSTATIN SUSP 500,000 U/5 ML CUP SWISH-SPIT SCH ×4 (09:20→20:00)
[2016-01-30] MEDS: predniSONE 5 MG TAB NG SCH (09:20)
[2016-01-30] MEDS: FERROUS SULFATE 300 MG /5ML UDC TUBE SCH ×2 (09:21→20:00)
[2016-01-30] MEDS: MULTIVITAMINS LIQUID 5 ML UDC TUBE SCH (09:21)
[2016-01-30] MEDS ORDERED: FUROSEMIDE 20 MG/2 ML VIAL IV PUSH ONE (11:00)
--- NOTE | 2016-01-30 12:28 | RADRPT ---
EXAM DATE/TIME: 01/30/2016 11:18 [facility] COMPARISON: US ARM LEFT VENOUS DOPPLER, January 23, 2016, 11:29. INDICATIONS : Swelling in left upper extremity. MEDICAL HISTORY : Hernia, hiatal. Osteoarthritis. Rheumatoid arthritis. Left leg numbness. Migraines. Sleep apnea. Dysp александр. Melena. Osteopenia. Gout. Hepatitis C. SURGICAL HISTORY : Tonsillectomy. Inguinal hernia repair. Splenectomy. Back surgery. Left knee ACL. ORIF left hip. Endoc rine surgery, lymph nodes. Blood transfusions. ENCOUNTER: Subsequent ACUITY: 1 week PAIN SCORE: Non-responsive LOCATION: Left arm. FINDINGS: Exam is limited because the patient bandages. There is limited visualization of the distal brachial basalic and cephalic veins as well as forearm veins because of the bandages over the forearm and axil logan region. Thrombus is identified in veins visualized. CONCLUSION: Limited exam without thrombus identified. Raudel Mckinney MD FACR on January 30, 2016 at 12:22 Board Certified Radiologist. This report was verified electronically.
[2016-01-30] MEDS: FLUCONAZOLE 400 MG PREMIX BAG 200 ML IV SCH (14:16)
[2016-01-30] MEDS: TAMSULOSIN HCL 0.4 MG CAP PO SCH (16:22)
[2016-01-30] MEDS: REMOVE OLD PATCH TD SCH ×2 (16:23)
[2016-01-30] MEDS: fentaNYL 25 MCG/HR PATCH TD SCH (16:24)
[2016-01-30] MEDS: fentaNYL 100 MCG/HR PATCH TD SCH (16:24)
--- NOTE | 2016-01-30 18:50 | HHI.IDPN ---
Subjective Subjective Remarks Delayed entry - pt was seen around 930 am today doing good afebrile tolerating TF at goal Low Hb, requires transfusions Tolearating CPAP Antibiotics fluconazole Lines RSC TLC Past Medical History RA HCV sp splenectomy Allergies: Coded Allergies: Compazine (Verified Allergy, Severe, VOMITING, RASH, 08/26/14) SLURRED SPEECH, MIGRAINES Demerol (Verified Allergy, Severe, VOMITING, 08/26/14) Levaquin (Verified Allergy, Severe, 08/26/14) Penicillin (Verified Allergy, Severe, Rash, 08/26/14) Phenergan (Verified Allergy, Severe, VOMITING, 08/26/14) Uncoded Allergies: ANTI-CONVULSIVES (Allergy, Severe, MIGRAINES, SLURRED SPEECH,, 01/23/14) Objective . Vital Signs Date Time Temp Pulse Resp B/P Pulse Ox O2 Delivery O2 Flow Rate FiO2 01/30/16 18:00 116 01/30/16 16:00 98.4 112 21 153/84 100 01/30/16 16:00 112 01/30/16 16:00 50 01/30/16 15:32 100 50 01/30/16 14:00 114 01/30/16 12:00 98.7 117 16 155/79 100 01/30/16 12:00 117 01/30/16 12:00 50 01/30/16 11:40 100 50 01/30/16 10:00 112 01/30/16 08:00 98.4 100 20 158/83 100 01/30/16 08:00 50 01/30/16 08:00 100 01/30/16 07:48 50 01/30/16 07:48 100 50 01/30/16 06:00 90 01/30/16 04:00 104 01/30/16 04:00 50 01/30/16 04:00 98.2 104 16 154/88 12 01/30/16 03:56 99 50 01/30/16 02:00 100 01/30/16 00:00 98 01/30/16 00:00 50 01/30/16 00:00 98.1 98 16 153/86 100 01/29/16 23:00 100 50 01/29/16 22:00 90 01/29/16 20:00 50 01/29/16 20:00 106 01/29/16 20:00 98.6 106 27 146/81 100 01/29/16 19:49 100 50 01/29/16 01/29/16 01/30/16 15:00 23:00 07:00 Intake Total 774 ml 956 ml 712 ml Output Total 600 ml 850 ml 480 ml Balance 174 ml 106 ml 232 ml IV Total 70 ml 20 ml 10 ml Tube Feeding 374 ml 536 ml 402 ml Other 330 ml 400 ml 300 ml Output Urine Total 470 ml 700 ml 350 ml Stool Total 90 ml 150 ml 130 ml Drainage Total 40 ml # Voids 0 . Laboratory Tests Test 01/28/16 01/29/16 01/30/16 22:14 03:52 04:09 White Blood Count 12.4 TH/MM3 18.3 TH/MM3 14.7 TH/MM3 Red Blood Count 2.43 MIL/MM3 2.38 MIL/MM3 2.28 MIL/MM3 Hemoglobin 7.0 GM/DL 7.0 GM/DL 6.6 GM/DL Hematocrit 22.1 % 21.7 % 20.9 % Mean Corpuscular Volume 91.2 FL 91.2 FL 91.7 FL Mean Corpuscular Hemoglobin 28.9 PG 29.5 PG 29.1 PG Mean Corpuscular Hemoglobin 31.7 % 32.4 % 31.7 % Concent Red Cell Distribution Width 18.4 % 18.3 % 18.3 % Platelet Count 267 TH/MM3 281 TH/MM3 299 TH/MM3 Mean Platelet Volume 9.0 FL 9.3 FL 9.2 FL Neutrophils (%) (Auto) 75.3 % Lymphocytes (%) (Auto) 11.8 % Monocytes (%) (Auto) 11.4 % Eosinophils (%) (Auto) 0.6 % Basophils (%) (Auto) 0.9 % Neutrophils # (Auto) 9.3 TH/MM3 Lymphocytes # (Auto) 1.5 TH/MM3 Monocytes # (Auto) 1.4 TH/MM3 Eosinophils # (Auto) 0.1 TH/MM3 Basophils # (Auto) 0.1 TH/MM3 CBC Comment DIFF FINAL Differential Comment Blood Smear Pathologist Review Laboratory Tests Test 01/29/16 01/30/16 03:52 04:09 Sodium Level 148 MEQ/L 148 MEQ/L Potassium Level 5.0 MEQ/L 4.7 MEQ/L Chloride Level 113 MEQ/L 112 MEQ/L Carbon Dioxide Level 28.2 MEQ/L 29.5 MEQ/L Anion Gap 7 MEQ/L 7 MEQ/L Blood Urea Nitrogen 42 MG/DL 40 MG/DL Creatinine 0.70 MG/DL 0.69 MG/DL Estimat Glomerular Filtration 118 ML/MIN 120 ML/MIN Rate Random Glucose 127 MG/DL 127 MG/DL Calcium Level 8.3 MG/DL 8.1 MG/DL Imaging [place] Last Impressions Abdomen/Pelvis CT 01/23/16 0800 Signed Impressions: Service Date/Time: Saturday, January 23, 2016 09:05 - CONCLUSION: Relative to the prior study the marked distention of the stomach is reduced. There is a persistent 5 cm left upper quadrant sub-diaphragmatic fluid collection and drain in the left upper quadrant. Patient is post splenectomy. Jejunostomy is in place and ostomy is noted in the right lower abdomen. No free fluid or free air is appreciated and there is no evidence of obstruction. Bilateral pleural effusions persists small but slightly larger on the right with left lower lobe consolidation. Jared Medina MD Upper Extremity Ultrasound 01/23/16 0600 Signed Impressions: Service Date/Time: Saturday, January 23, 2016 11:29 - CONCLUSION: Normal examination. No evidence DVT Jared Medina MD Chest X-Ray 01/21/16 0600 Signed Impressions: Service Date/Time: Thursday, January 21, 2016 05:12 - CONCLUSION: 1. Cardiomegaly and left retrocardiac/basilar density. 2. Slight interstitial prominence. Wojciech Lockhart MD Chest CT 01/05/16 0000 Signed Impressions: Service Date/Time: Tuesday, January 05, 2016 23:15 - CONCLUSION: 1. Persistent left lower lobar consolidation. Improved consolidative infiltrates in the right lower lung. 2. Interval increase size bilateral pleural effusions , left greater than right. Osmar Alegria MD Celiac/Hepatic Arteriogram 12/27/15 0000 Signed Impressions: Service Date/Time: December 13:41 - CONCLUSION: 1. No active GI bleed identified. Robert Mckinney MD Abdomen X-Ray 12/18/15 0000 Signed Impressions: Service Date/Time: Friday, December 18, 2015 16:05 - CONCLUSION: Feeding tube tip is at the gastric antrum. Arnaldo Elias MD Head CT 12/02/15 1013 Signed Impressions: Service Date/Time: Wednesday, December 02, 2015 11:00 - CONCLUSION: 1. No intracranial abnormality is seen. 2. Air-fluid level in the right maxillary sinus. Arnaldo Reyes MD Physical Exam GENERAL: On vent , awake fully alert SKIN: + minimal jaundice. Most of pt's anasarca has resolved HEENT: + mild icterus, no nasal discharge Chemosis + NECK: Trach in place CARDIOVASCULAR: systolic murmur in base of heart RESPIRATORY/CHEST: scattered rhonchi on auscultation.L side with crackes GASTROINTESTINAL: dressing in place Stoma with brown stool Incision packed no staining on the dressing GENITOURINARY: Sandoval catheter in place with clear light yellow urine with sediment MUSCULOSKELETAL: Extremities no cyanosis, edema improved on BLE, improved pitting edema 1-2+ RUE with with VAC LUE with dressignin place NEUROLOGICAL: fully awake and alert , makes eye contact and follows commands communicates appropiately smiles LINES: NO evidence of infection Assessment & Plan Remarks Sepsis related to Cdiff and Intra abdominal peritonitis. - sp subtotal colectomy and ileostomy SP colon perfocation and intraperitoneal gross contamination - wound is not healing ? Cdiff Colitis Noted Cdiff PCR is negative3/3 ? Zinc preparation in perianal care could cause false negative test. Path c/o Cdiff Colitis. - repeat path favouring ischemia RUE severe nec fasc due to MSSA - skin grafting was planned, but cancelled - S/P I and D x 3 - clinically resolved Recurretn life threatening upper GI bleeding 2/2 bleeding ulcers Persistent leukocytosis - improving C. parapsilosa fungemia ? sourece intraabd vs (less likely) line - repeat BC negative - no fungal endophalmitis - Dr Parker help appreciated Low grade coag negative staph bacteremia, 1/4 bottles - probably contaminant; would not Rx at this point sp thoracocenthesis IR drainage of the intraabd fluid collection was cancelled 2/2 lack of fluid PLAN: cont fluconazole thru 02/04 - change to po monitor WBC will fu clx on the drained fluid collection dw Dr Jolene Becerra,Argelia Ronquillo MD Jan 30, 2016 18:50
[2016-01-31] VITALS (20 sets, daily range): BP systolic 136–175; BP diastolic 71–100; PULSE 98–122; RESP 18–30; TEMP 97.9–98.7; O2SAT 93–100
[2016-01-31] MEDS: FREE WATER G-TUBE SCH ×3 (01:00→17:00)
[2016-01-31] MEDS: oxyCODONE HCL ORAL CONC 20 MG/ML SYRINGE PO SCH ×6 (01:10→20:51)
[2016-01-31] MEDS: RESP: ALBUTEROL 2.5 MG/IPRATROPIUM 0.5 MG NEB (SCH) NEB ×2 (03:44→09:18)
[2016-01-31 04:18] LABS: MEAN CELL VOLUME 91.4 FL (80.0-100.0); MEAN CORPUSCULAR HEMOGLOBIN 29.6 PG (27.0-34.0); MEAN CORPUSCULAR HGB CONC 32.4 % (32.0-36.0); PLATELET COUNT 330 TH/MM3 (150-450); RED BLOOD COUNT 2.52 MIL/MM3 (4.50-5.90); RED CELL DISTRIBUTION WIDTH 17.2 % (11.6-17.2); REVIEW FLAG FINAL; WHITE BLOOD COUNT 12.6 TH/MM3 (4.0-11.0)
[2016-01-31] MEDS: HYDROmorphone HCL PF 4 MG/ML VIAL IV PUSH PRN ×2 (04:25→13:00)
[2016-01-31] MEDS: METOPROLOL TARTRATE 25 MG TAB TUBE SCH ×3 (04:26→20:51)
[2016-01-31] MEDS: SODIUM CHLORIDE 0.9% FLUSH 5 ML FLUSH IVF PRN (04:26)
[2016-01-31] MEDS: CHLORHEXIDINE GLUCONATE 2 % 1 PACK (2 CLOTHS) TOP SCH (04:28)
[2016-01-31 04:41] LABS: BICARBONATE 28.5 MEQ/L (21.0-32.0); POTASSIUM 4.8 MEQ/L (3.5-5.1)
[2016-01-31] MEDS: PANTOPRAZOLE SODIUM 40 MG VIAL IV PUSH SCH ×2 (05:39→18:00)
[2016-01-31] MEDS: INSULIN ASPART SUPPLEMENTAL SCALE SQ SCH ×4 (05:40→18:00)
[2016-01-31] MEDS: CHLORHEXIDINE 0.12% (ORAL KIT) 15 ML CUP MT SCH ×2 (08:00→20:51)
[2016-01-31] MEDS: FLUCONAZOLE 200 MG TAB PO SCH (09:00)
[2016-01-31] MEDS: FERROUS SULFATE 300 MG /5ML UDC TUBE SCH ×2 (09:00→20:48)
[2016-01-31] MEDS: NYSTATIN SUSP 500,000 U/5 ML CUP SWISH-SPIT SCH ×4 (09:00→20:48)
[2016-01-31] MEDS: POVIDONE IODINE 10% OINT 30 GM TUBE TOPICAL SCH (09:00)
[2016-01-31] MEDS: NEOMYCIN/POLYMYXIN/BACITRACIN OINT 15 GM TUBE TOPICAL SCH ×2 (09:00→20:52)
[2016-01-31] MEDS: MULTIVITAMINS LIQUID 5 ML UDC TUBE SCH (09:00)
[2016-01-31] MEDS: predniSONE 5 MG TAB NG SCH (09:00)
[2016-01-31] MEDS: SILVER SULFADIAZINE 1% CR 400 GM JAR TOPICAL SCH (09:00)
[2016-01-31] MEDS: TAMSULOSIN HCL 0.4 MG CAP PO SCH (09:00)
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
[2016-01-31] MEDS: LABETALOL HCL 100 MG/20 ML VIAL IV PRN (13:00)
--- NOTE | 2016-01-31 13:59 | HHI.HCPN ---
Met with patient and at bedside for follow-up palliative care visit. Mr. Smith lying in bed, currently on CPAP trials per , concerned about his o2 stats dropping. Informed RT who came to evaluate. Mr. Smith is alert and nods head appropriately to simple questions. Somewhat able to make his needs known. Denies pain. Reports some shortness of breath, RT in evaluating. No other concerns or questions from patient or family at this time. Normalized feelings and provided emotional support. Confirmed they have palliative care contact information. Palliative care will continue to follow throughout hospitalization. SW will follow as needed for emotional and social support. Ade Chavez, PRINTING ENGINEER Jan 31, 2016 13:59
[2016-02-01] VITALS (25 sets, daily range): BP systolic 114–174; BP diastolic 67–104; PULSE 94–119; RESP 20–27; TEMP 98.7–101.4; O2SAT 93–100
[2016-02-01] MEDS: oxyCODONE HCL ORAL CONC 20 MG/ML SYRINGE PO SCH ×6 (00:08→20:05)
[2016-02-01] MEDS: FREE WATER G-TUBE SCH ×3 (00:09→16:27)
[2016-02-01] MEDS: CHLORHEXIDINE GLUCONATE 2 % 1 PACK (2 CLOTHS) TOP SCH (04:00)
[2016-02-01 04:07] LABS: MEAN CELL VOLUME 93.2 FL (80.0-100.0); MEAN CORPUSCULAR HEMOGLOBIN 29.6 PG (27.0-34.0); MEAN CORPUSCULAR HGB CONC 31.8 % (32.0-36.0); PLATELET COUNT 347 TH/MM3 (150-450); RED BLOOD COUNT 2.46 MIL/MM3 (4.50-5.90); RED CELL DISTRIBUTION WIDTH 17.4 % (11.6-17.2); REVIEW FLAG FINAL; WHITE BLOOD COUNT 11.7 TH/MM3 (4.0-11.0)
[2016-02-01] MEDS: METOPROLOL TARTRATE 25 MG TAB TUBE SCH ×4 (04:26→23:58)
[2016-02-01] MEDS: PANTOPRAZOLE SODIUM 40 MG VIAL IV PUSH SCH ×2 (04:28→16:27)
[2016-02-01 04:32] LABS: POTASSIUM 4.7 MEQ/L (3.5-5.1)
[2016-02-01] MEDS: INSULIN ASPART SUPPLEMENTAL SCALE SQ SCH ×4 (05:10→17:14)
[2016-02-01] MEDS: SILVER SULFADIAZINE 1% CR 400 GM JAR TOPICAL SCH (09:00)
[2016-02-01] MEDS: TAMSULOSIN HCL 0.4 MG CAP PO SCH (09:00)
[2016-02-01] MEDS: POVIDONE IODINE 10% OINT 30 GM TUBE TOPICAL SCH (09:00)
[2016-02-01] MEDS: NEOMYCIN/POLYMYXIN/BACITRACIN OINT 15 GM TUBE TOPICAL SCH ×2 (09:00→20:05)
[2016-02-01] MEDS: predniSONE 5 MG TAB NG SCH (09:00)
[2016-02-01] MEDS: CHLORHEXIDINE 0.12% (ORAL KIT) 15 ML CUP MT SCH ×2 (09:47→20:00)
[2016-02-01] MEDS: FLUCONAZOLE 200 MG TAB PO SCH (09:48)
[2016-02-01] MEDS: MULTIVITAMINS LIQUID 5 ML UDC TUBE SCH (09:49)
[2016-02-01] MEDS: NYSTATIN SUSP 500,000 U/5 ML CUP SWISH-SPIT SCH ×4 (09:49→20:05)
[2016-02-01] MEDS: FERROUS SULFATE 300 MG /5ML UDC TUBE SCH ×2 (09:49→20:05)
[2016-02-01] MEDS: LABETALOL HCL 100 MG/20 ML VIAL IV PRN (10:23)
[2016-02-01] MEDS: HYDROmorphone HCL PF 2 MG/ML VIAL IV PUSH PRN (13:32)
--- NOTE | 2016-02-01 15:41 | HHI.CCPN ---
Subjective Remarks/Hospital Course 55-year-old male brought by EMS with altered mental status. He has been confused for 2 days but this morning has been the worst. He has history of chronic opiate medications including methadone and morphine that he takes for pain management and hence they gave him Narcan IV which brought the GCS up to 13. The blood glucose was 74. He has open wounds from his right upper and bilateral lower extremities. He has history of hepatitis C. Last week he was pealing and eating shrimps. Bedside blood sugar was 76 in the ER. He was tachycardic in 1 teens and was intubated in the ED for airway protection. Admitted to ICU with sepsis due to Staph Aureus hand infection and E. Coli bacteriemia. 12/05 Patient remains sedated with Fentanyl and intubated. On Levophed 3 mics, Vasopressin 0.03 mics and Bicarb drip. T:99.8 TF placed on hold OGT to LIWS last night - gastric drainage 525ml overnight. 12/06 Patient is sedated with Fentanyl and intubated, On Levophed 3 mics, off vasopressin. Gastric output 400ml in 24 hrs. KUB abdomen yesterday mildly distended colon otherwise non specific KUB. 12/07 Patient is off sedation remains intubated tolerated CPAP for most day yesterday. Afebrile. on no drips, tolerating tube feeds. 12/08 Patient went to OR yesterday for debridement and irrigation of right forearm and wound VAC placement. Given 2U PRBC and 2u PLT yesterday and currently receiving 1of 2 u additional PRBC. Hgb 7.7, PLT 43 this morning. Patient also started on pressors now on Levophed 10 mics. Vasopressin 0.04 mics. On no sedation. 12/09 Patient remains intubated off pressors, Afebrile. Tolerating tube feeds. Afebrile. 12/10 Patient is sedated with Fentanyl and intubated. Awake and follows commands off sedation. Afebrile. 12/11 Patient had ?SVT overnight given Lopressor 2.5mg IV x1, Remains intubated and sedated with Fentanyl. Afebrile. Tolerating TF. 12/12 Patient spoked fever last night with T: 101.5, sedated with Fentanyl and intubated. 12/13 Patient had an episode of desaturation overnight required increase FIO2/ PEE now on ACV with RR 14, TV 550, PEEP: 12, FIO2 60% with sats 100% CT chest performed overnight showed b/l consolidation and small pleural effusion. Had T: 100.0 last night. 12/14 Tolerating PS 15/CPAP 10 FiO2 40% with rSBI 38, weaning. . Awake and alert , following commands. Hypotensive overnight and levophed restarted up to 12 mcg/ min. Nurse has been weaning throughout the day. Suspected adrenal insufficiency as he was on prednisone as outpatient for gout and has not been on stress dose steroids. Given decadron. 12/15 Transfused 1 unit PRBC for Hgb 7.0 yesterday, 1 unit PRBC for Hgb 6.6 today and now Hgb 8.3. Does not clinically have e/o active GI bleeding and wound vac output nonbloody. Stool 1500 output, C diff negative. No abdominal pain. Remains Awake and alert, remained on CPAP 10/5 last night and is now tolerating CPAP 5/5. 12/16: Extubated yesterday tolerating well. Breathing comfortably. Able to follow commands. UO 1.8 L in 24 hours. Na slightly increased to 153. 12/17: Significantly worse this AM. WBC up to 28 from 16. Hgb 5.2 from 7.9. tachycardic. pale this AM. states he feels tired. Continues on BiPAP. Plan for debridement of his arms today. LIJ CVL does not have any signs of overt infection. 12/18: Blood cell count continues to rise today to 30 from 28. Required 1 unit of blood for hemoglobin of 6.6 which improved to 7.7 this morning. However, patient remains tachycardic in the 120s and significantly pale. CT abdomen and pelvis ordered and pending. Tachypneic with respiratory rate in the 30s. Only small amount of dark tarry stool yesterday with approximately 300 cc of stool output. C. difficile toxin negative 3. After discussion with infectious disease, restart vancomycin, cefepime, Flagyl, micafungin. Horn cultures are pending. Per discussion with GI, will not scope as endoscopy is high risk given his tenuous respiratory status this point. Slightly worse hypernatremia as well as worsening acute kidney injury this morning. 12/19: POD 1 s/p ex-lap, washout for perforated ascending colon with extended right hemicolectomy, primary ileocolic anastamosis, open abdomen, septic shock, acute hypoxic and hypercarbic respiratory failure. Significantly critically ill overnight: required 6L ivf resuscitation, 1 unit prbc, norepinephrine, vasopressin, stress dose hydrocortisone. This morning, remains on high-dose vasopressors. still has large volume ivf requirement. Significant SIRS response. Vent requirements increasing with all this volume resuscitation, PEEP up to 10. He remains critically ill, and although I do believe we have surgical source control, I anticipate he will continue to clinically decline before he starts to make improvements. 12/20: Off pressors. follows commands on sedation holiday. +11L over last 3 days during acute illness, +22L since admission. We are going to have to get some of this volume back before we are able to close him given his severe anasarca. 12/21: Taken back to the OR yesterday afternoon for washout and completion colectomy. Postoperatively was significantly under resuscitated as well as had ongoing active oozing. Patient was coagulopathy. The patient was in distributive and hemorrhagic shock. The patient was given multiple units of blood products overnight. Patient was thrombocytopenic, hypofibrinogenemic, coagulopathic. Given significant volume of blood product resuscitation: 24h blood products: 13 prbc 8 ffp 2 plt 1 10-pack cryo This morning continues to have significant amount of bright red output out of his BEV and wound VAC, approximately 500 cc an hour out of his wound VAC, and approximately 75 an mils every 10 minutes out of a BEV. I discussed with surgery and we will correct his coagulopathy and plan to go back to the OR for exploration early this afternoon. 12/22: Clinically starting to improve hemodynamically. off vasopressors. Net+ 26L. CVP rising to 14. UOP adequate. Hgb 7 this AM. 12/23 Seen postop. Hypertensive, BP improved with additional pain medicine. Remains net positive but urine output excellent 3L in 24 hours. Remains on Lasix gtt. went to OR today status post wound VAC change and partial closure 12/24: Fascia was closed yesterday. Wound Vac in place. Remains sedated. -2L negative balance, but with increasing BUN/creat. Discontinue Bumex infusion, start scheduled Bumex 2 mg IV every 12 with IV albumin. 12/25: Overnight became hypotensive requiring Levophed to be restarted. Hemoglobin dropped to 4.1. Noted to have bloody drainage from G-tube and dorsal ileostomy with black stool output 12/26: s/p EGD yesterday-2 gastric ulcers bleeding, stomach a significant part had decreased discoloration indicating probable ischemia. s/p epi injection and cauterization. Continues to have coffee ground G tube output, black tarry Ileostomy output. Hemoglobin down to 6.4 getting 2 units of PRBC. GI recent recommending intervention radiology consult. 12/27: For trach today. Meds ordered. Hgb decline consistent with recent transfusions and senescent cells. 12/28: Trach clean, dry. Start SBTs. Check prealbumin. Continue TPN. 12/29: Looks in direction of voice. I have not seen more purposeful reactions. Line > 12 days old, replace today. Prealbumin 20 - good response to TPN. 12/30: Remains vented, encephalopathic, puss like drainage from left hand, WBC increased 01/01: no significant changes. continues to remain critically ill with minimal improvements over the last week. abdomen closed. still total body volume overloaded. 01/02: more awake today than yesterday. continues to be critically ill with minimal improvements overall. need to look towards placement. -900 yesterday. 01/03: up in chair yesterday. tolerated short run of SBT 15/5/40%. net euvolemic. wbc downtrending. 01/04: wbc slightly uptrended 33 from 30, more acidotic on BMP (14 from 20). Also spiking fevers to 102.3 despite tylenol. continues on broad spectrum abx. yesterday's cxr had what may be a new LLL infiltrate. today, though, he is following commands and more awake and alert. 01/05: LLL pna clinically and based on bronch. CT c/a/p done last night without any significant intra-abdominal change. small left pleural effusion which appears simple in nature, and LLL consolidation. ID broadened abx. today , wbc downtrending. culture data pending. Hgb 7 this AM. 01/06: Underwent exploratory laparotomy last night with findings of bleeding gastric ulcer which was oversewn by Dr. Verdin abdomen left open with wound VAC in place. Received 3 units PRBCs overnight. Remains on Wesley-Synephrine drip this morning for hypotension. Remains sedated, on mechanical ventilation. 01/07: Remains sedated, on mechanical ventilation. For abdominal incision site closure today. Significant positive fluid balance over the last 2 days. Off pressors currently. Lasix to mobilize fluid. 01/08: Remains sedated, on mechanical ventilation via tracheostomy. Underwent abdominal incision site closure this morning. Remains off pressors. Anasarca noted. Blood cultures from 01/04 growing Nava parapsilosis. 01/09: Drowsy/sedated, arousable, on mechanical ventilation via tracheostomy. TPN started yesterday. To be started on J-tube feeds per discussion with surgery 01/10: Sedated, arousable, on mechanical ventilation via tracheostomy. Remains on TPN. J-tube feeds being started today. 01/11: Was on T piece yesterday and rested on C Pap overnight. On TPN. Advanced J-tube feeds to 20 cc an hour today. Attempt T piece as tolerated. 01/12: Awake, tracks with his eyes. On C Pap overnight. Tolerated T piece during daytime yesterday. 01/13: Awake and alert. Was on T piece all day yesterday and was placed back on C Pap at 1:45 AM this morning. Does not appear to be in any acute distress. Tolerating J-tube feeds at 20 cc per hour. 01/14: Drowsy, easily arousable. Was on T piece all day yesterday and rested on C Pap at night. Tolerating J-tube feeds at 40 cc an hour with goal of 60 cc per hour. On TPN which will be discontinued after current bag. BEV drain with cloudy drainage. 01/15 Was placed back on ACV yesterday around 9 am due to tachypnea and remained on ACV overnight. Now on CPAP 11/20 and tolerating. BEV in lower abdomen had purulent output yesterday but RN states looks better today. Tolerating tube feeds, stool in ostomy. Off TPN. Removing CVL. 01/16 Hgb 6.6 on CBC this morning, lab draw, repeat pending. Tachycardia persists but otherwise no hemodynamic change. The NGT output yesterday was bilious, today brown/slight coffee grounds but mostly clear. No blood from BEV' s.Has been tolerating jejunal tube feeds, placed on hold for now. Has been tolerating CPAP 10/5 with RSBI 10s. GI/General surgery updated. 01/17 Hemoglobin 8.0. EGD performed yesterday showing gastric ulcers with no active bleeding. Abdominal wound dressing change today. Plan to begin trickle feeds today per general surgery. 01/18 Hgb 7.3. Tolerating trickle feeds that were resumed per general surgery.Tolerated Tpiece 2 hours yesterday. On CPAP 8/5 overnight. Now on Tpiece about 1 hour and doing well. Will continue intermittent Tpiece trials throughout the day with rest on CPAP in between. Watching off abx; cefepime discontinued 01/16. Remains on fluconazole for candidemia. 01/19 Trach developed cuff leak overnight. I exchanged Trach at bedside this morning. Tolerated Tpiece 2 hours, now resting on CPAP 8/5. Doing 2 piece trials up to 2 hours as tolerated tid and then plan to start extending duration of Tpiece trials from there. Tolerating tube feeds. 01/20 Tmax 99.2. Continued Protonix twice a day, noted melena continues in ostomy bag. Patient's T piece trials extended to 4 hours today, maximum toleration. Repeat blood cultures 01/19 still pending, WBC count still elevated. Wound care to be consulted for clarification of all specific dressing changes noted new reddened skin breakdown area on sacrum ,and eschar noted several areas left upper extremity all skin margins of wound noted erythematous. fulfillment mail clerk Mattie Yost in attendance of dressing change MELITAE, noted no change in left upper extremity appearance in the last 30 days per her assessment.Requested Plastic Surgery reassess LUE and wound care protocol.Patient continues to tolerate tube feeds no residual noted. 01/21 Tmax 99.0. Overnight the patient continued to have episodes of tachycardia , some heart rate 130, appear non-pain related,requiring PRN dosing of antihypertensive meds. Blood cultures returned this morning gram positive cocci. Plan for CT of the abdomen and pelvis 01/22 discussed with and per general surgery.. Discussion of wounds with Dr. Pedro, plastic surgery yesterday, plans for reevaluation by plastic surgery and definitive/ instructions regarding wound care plan for today, of focus left upper extremity. 01/22 Afebrile. Overnight , HR remains in the low 100s-120. Systolic blood pressure remained above 160 early a.m., despite increase in frequency of metoprolol. Plan for increase in dosage of metoprolol. The patient underwent CT of the abdomen and pelvis early this a.m. showing persistent 5 cm left upper quadrant subdiaphragmatic fluid collection. Surgery aware with plans of drainage per IR. Gastroenterology following, noted ostomy output color, melena resolved recommended resumption of anticoagulation prophylactically ,but will hold with plans of IR drainage of fluid collection, per general surgery at this time. 01/23 Tmax 97.7. Overnight no acute issues, one episode of elevated blood pressure, received 1 dose of hydralazine 20 mg IV, with resolution. The patient has remained nothing by mouth for tentative IR drainage of left upper quadrant fluid collection. Imaging studies reevaluated by radiologist, noted no fluid collection is observed in the left upper quadrant. Tentative scheduling of IR drainage canceled. Tube feeds resumed and DVT prophylaxis, heparin resumed. Albumin level 1.1, Beneprotein added to diet twice a day, tolerated, will increase to QID. 01/24 Overnight the patient was noted to have small amount of bleeding around trach site, surgeon was notified and gel foam was applied. Of note the patient' s SQ heparin prophylaxis was resumed and he had received 1 dose at 2100. Heparin DVT prophylaxis was discontinued, chest x-ray was performed, which was was basically unremarkable with the exception of left lower lobe atelectasis. Yesterday the patient was placed out of bed in recliner chair and remained out of bed for 3 hours. 01/25 No bleeding noted around trach site overnight. Subcutaneous heparin continues to be on hold. The patient to T piece trial was advanced to 5 hours yesterday, patient was only able to maintain 4.5 hours before tiring out. We' ll continue to attempt Tpiece trials to 5 hours. The patient's Beneprotein has been advanced to 4 times a day. The patient is out of bed to chair 2 hours each day, utilizing PT for functional maintenance of extremities 4 daily. Minimal drainage from BEV . 01/26 Reportedly was on Tpiece yesterday about 5 hours. Then got out of bed to stretcher chair for a couple of hours and then after went back to bed was tachypneic despite CPAP and was on ACV overnight until about noon today when placed back on CPAP 12/5 which he is currently tolerating well. Transfused 1 unit PRBC this morning for Hgb 6.7 that was symptomatic with heart rate 120s. Now heart rate 101. Tolerating tube feeds. 01/27: persistently anemic despite transfusions. otherwise subjectively feels much better today. cpap trials. getting 1 unit prbc today. 01/28: 1 unit prbc yesterday for hgb 6.8, recheck 7 and stable 7 this AM. dressings taken down and upper arms where skin tears are, there is small amount of oozing dark blood. likely the source of his anemia is combination blood loss from chronic oozing like this as well as long-term phlebotomy. 01/29: hgb 6.6 this morning. wounds still oozing blood, no signs of active bleeding. discussed with ID, plan for 4 weeks fluconazole, but will likely change to PO. left arm piv with superficial thrombophlebitis overnight, removed. iv access is very difficult. his left arm this morning is edematous- he is not on anticoagulation. 01/30: hgb improved after 1 unit prbc yesterday. also tolerating SBTs better today. let arm ultrasound negative for DVT. Subjective: 01/31: tolerated CPAP well yesterday. T-piece trials today. Hgb stable. Objective Vital Signs Date Time Temp Pulse Resp B/P Pulse Ox O2 Delivery O2 Flow Rate FiO2 02/01/16 13:45 94 Face Tent 6.00 40 02/01/16 12:00 100.9 117 22 174/104 Intake and Output 01/31/16 01/31/16 01/31/16 07:59 15:59 23:59 Intake Total 568 ml 790 ml Output Total 600 ml 500 ml 800 ml Balance -32 ml 290 ml -800 ml Result Diagram: 02/01/16 0339 02/01/16 0339 Imaging Last Impressions Chest X-Ray 01/24/16 0000 Signed Impressions: Service Date/Time: January 23:12 - CONCLUSION: 1. Left lower lobe atelectasis versus pneumonia. There has been no significant change when compared to the prior exam. Tracheostomy tube is in expected position Ramone Hall MD Abdomen/Pelvis CT 01/23/16 0800 Signed Impressions: Service Date/Time: Saturday, January 23, 2016 09:05 - CONCLUSION: Relative to the prior study the marked distention of the stomach is reduced. There is a persistent 5 cm left upper quadrant sub-diaphragmatic fluid collection and drain in the left upper quadrant. Patient is post splenectomy. Jejunostomy is in place and ostomy is noted in the right lower abdomen. No free fluid or free air is appreciated and there is no evidence of obstruction. Bilateral pleural effusions persists small but slightly larger on the right with left lower lobe consolidation. Jared Medina MD ADDENDUM: I have reviewed the images with respect to her request made for left subdiaphragmatic drainage of a fluid collection. No fluid collection is observed within the left upper quadrant. There is residual splenic tissue that measures 5 cm in diameter with Hounsfield units 62. The stomach fundus extends up into the subdiaphragmatic location. No subdiaphragmatic fluid collection is observed. Surgical drains are noted. Osmar Chavez Jr., MD Upper Extremity Ultrasound 01/23/16 0600 Signed Impressions: Service Date/Time: Saturday, January 23, 2016 11:29 - CONCLUSION: Normal examination. No evidence DVT Jared Medina MD Chest CT 01/05/16 0000 Signed Impressions: Service Date/Time: Tuesday, January 05, 2016 23:15 - CONCLUSION: 1. Persistent left lower lobar consolidation. Improved consolidative infiltrates in the right lower lung. 2. Interval increase size bilateral pleural effusions , left greater than right. Osmar Alegria MD Celiac/Hepatic Arteriogram 12/27/15 0000 Signed Impressions: Service Date/Time: December 13:41 - CONCLUSION: 1. No active GI bleed identified. Robert Mckinney MD Abdomen X-Ray 12/18/15 0000 Signed Impressions: Service Date/Time: Friday, December 18, 2015 16:05 - CONCLUSION: Feeding tube tip is at the gastric antrum. Arnaldo Elias MD Head CT 12/02/15 1013 Signed Impressions: Service Date/Time: Wednesday, December 02, 2015 11:00 - CONCLUSION: 1. No intracranial abnormality is seen. 2. Air-fluid level in the right maxillary sinus. Arnaldo Reyes MD Last Impressions Abdomen/Pelvis CT 01/23/16 0800 Signed Impressions: Service Date/Time: Saturday, January 23, 2016 09:05 - CONCLUSION: Relative to the prior study the marked distention of the stomach is reduced. There is a persistent 5 cm left upper quadrant sub-diaphragmatic fluid collection and drain in the left upper quadrant. Patient is post splenectomy. Jejunostomy is in place and ostomy is noted in the right lower abdomen. No free fluid or free air is appreciated and there is no evidence of obstruction. Bilateral pleural effusions persists small but slightly larger on the right with left lower lobe consolidation. Jared Medina MD ADDENDUM: I have reviewed the images with respect to her request made for left subdiaphragmatic drainage of a fluid collection. No fluid collection is observed within the left upper quadrant. There is residual splenic tissue that measures 5 cm in diameter with Hounsfield units 62. The stomach fundus extends up into the subdiaphragmatic location. No subdiaphragmatic fluid collection is observed. Surgical drains are noted. Osmar Chavez Jr., MD Upper Extremity Ultrasound 01/23/16 0600 Signed Impressions: Service Date/Time: Saturday, January 23, 2016 11:29 - CONCLUSION: Normal examination. No evidence DVT Jared Medina MD Chest X-Ray 01/21/16 0600 Signed Impressions: Service Date/Time: Thursday, January 21, 2016 05:12 - CONCLUSION: 1. Cardiomegaly and left retrocardiac/basilar density. 2. Slight interstitial prominence. Wojciech Lockhart MD Chest CT 01/05/16 0000 Signed Impressions: Service Date/Time: Tuesday, January 05, 2016 23:15 - CONCLUSION: 1. Persistent left lower lobar consolidation. Improved consolidative infiltrates in the right lower lung. 2. Interval increase size bilateral pleural effusions , left greater than right. Osmar Alegria MD Celiac/Hepatic Arteriogram 12/27/15 0000 Signed Impressions: Service Date/Time: December 13:41 - CONCLUSION: 1. No active GI bleed identified. Robert Mckinney MD Abdomen X-Ray 12/18/15 0000 Signed Impressions: Service Date/Time: Friday, December 18, 2015 16:05 - CONCLUSION: Feeding tube tip is at the gastric antrum. Arnaldo Elias MD Head CT 12/02/15 1013 Signed Impressions: Service Date/Time: Wednesday, December 02, 2015 11:00 - CONCLUSION: 1. No intracranial abnormality is seen. 2. Air-fluid level in the right maxillary sinus. Arnaldo Reyes MD Last Impressions Abdomen/Pelvis CT 01/23/16 0800 Signed Impressions: Service Date/Time: Saturday, January 23, 2016 09:05 - CONCLUSION: Relative to the prior study the marked distention of the stomach is reduced. There is a persistent 5 cm left upper quadrant sub-diaphragmatic fluid collection and drain in the left upper quadrant. Patient is post splenectomy. Jejunostomy is in place and ostomy is noted in the right lower abdomen. No free fluid or free air is appreciated and there is no evidence of obstruction. Bilateral pleural effusions persists small but slightly larger on the right with left lower lobe consolidation. Jared Medina MD Upper Extremity Ultrasound 01/23/16 0600 Signed Impressions: Service Date/Time: Saturday, January 23, 2016 11:29 - CONCLUSION: Normal examination. No evidence DVT Jared Medina MD Chest X-Ray 01/21/16 0600 Signed Impressions: Service Date/Time: Thursday, January 21, 2016 05:12 - CONCLUSION: 1. Cardiomegaly and left retrocardiac/basilar density. 2. Slight interstitial prominence. Wojciech Lockhart MD Chest CT 01/05/16 0000 Signed Impressions: Service Date/Time: Tuesday, January 05, 2016 23:15 - CONCLUSION: 1. Persistent left lower lobar consolidation. Improved consolidative infiltrates in the right lower lung. 2. Interval increase size bilateral pleural effusions , left greater than right. Osmar Alegria MD Celiac/Hepatic Arteriogram 12/27/15 0000 Signed Impressions: Service Date/Time: December 13:41 - CONCLUSION: 1. No active GI bleed identified. Robert Mckinney MD Abdomen X-Ray 12/18/15 0000 Signed Impressions: Service Date/Time: Friday, December 18, 2015 16:05 - CONCLUSION: Feeding tube tip is at the gastric antrum. Arnaldo Elias MD Head CT 12/02/15 1013 Signed Impressions: Service Date/Time: Wednesday, December 02, 2015 11:00 - CONCLUSION: 1. No intracranial abnormality is seen. 2. Air-fluid level in the right maxillary sinus. Arnaldo Reyes MD Last 48 hours Impressions Chest X-Ray 01/07/16 0000 Signed Impressions: Service Date/Time: Thursday, January 07, 2016 04:23 - CONCLUSION: Worsening consolidation or atelectasis at the left mid and lower lung. Some degree of left effusion may also be contributing to this. Arnaldo Reyes MD Chest X-Ray 01/06/16 0000 Signed Impressions: Service Date/Time: Wednesday, January 06, 2016 19:46 - CONCLUSION: 1. Basilar airspace disease improved from January 04. Tracheostomy and right central line in satisfactory position. Nomi Falcon MD Abdomen/Pelvis CT 01/06/16 0000 Signed Impressions: Service Date/Time: Wednesday, January 06, 2016 22:07 - CONCLUSION: 1. Over the last day there is development of a large mass in the left upper quadrant measuring up to 18 x 13 cm which appears to be associated with the stomach. The mass is characterized by somewhat concentric areas of decreased and increased attenuation with multiple locules of air. Primary differential diagnosis is hemorrhage into the gastric wall with gastric pneumatosis and possibly gastric ischemia. Gastrostomy is again noted anteriorly. 2. Remainder the exam is relatively stable with drainage tube left upper quadrant, splenectomy, bilateral effusions, feeding jejunostomy and drain within the pelvis. There is also diffuse anasarca and nonobstructing renal calculi. Nomi Flacon MD Last Impressions Chest X-Ray 12/17/15 0600 Signed Impressions: Service Date/Time: Thursday, December 17, 2015 03:25 - CONCLUSION: Persistent left lower lobe consolidation. Osmar Alegria MD Chest CT 12/14/15 0000 Signed Impressions: Service Date/Time: Monday, December 14, 2015 06:12 - CONCLUSION: 1. Cardiomegaly with bilateral consolidation, likely CHF. Pneumonia cannot be excluded. 2. Small right pleural effusion. Wojciech Lockhart MD Abdomen X-Ray 12/06/15 0000 Signed Impressions: Service Date/Time: November 09:53 - CONCLUSION: Nonspecific KUB. Air is seen within a mildly distended colon but contrast is clearly seen in the rectum. Arnaldo Reyes MD Abdomen/Pelvis CT 12/04/15 0000 Signed Impressions: Service Date/Time: Friday, December 04, 2015 16:24 - CONCLUSION: 1. Mildly distended small bowel in the mid and lower abdomen. Contrast is clearly seen extending into the distal small bowel and ascending colon so a complete obstruction is not seen. A transition point is not seen. This pattern likely represents an ileus versus a partial obstruction. 2. Multiple nonobstructing renal stones. 3. Abnormal appearance of the spleen which appears to represent a splenule. It could be correlated if the patient has had either primary splenic removal or splenic injury and this is what is either left of the spleen or a developing splenule. This is likely of no significance. 4. Mild ascites. 5. Increased density within the gallbladder representing either tumefactive sludge or noncalcified stones. 6. Mild bilateral pleural effusions with prominent areas of lower lobe atelectasis or consolidation at the bases bilaterally. 7. Subacute to chronic bilateral rib fractures and multiple compression fractures in the lower thoracic and lumbar spine as described above. The patient does have a prior CT examination from 08/26/2014. All the compression deformities described above are new when compared to that scan. Arnaldo Reyes MD Head CT 12/02/15 1013 Signed Impressions: Service Date/Time: Wednesday, December 02, 2015 11:00 - CONCLUSION: 1. No intracranial abnormality is seen. 2. Air-fluid level in the right maxillary sinus. Arnaldo Reyes MD Objective Remarks Jevity 1.5 @ 60 mL per hour, Beneprotein QID GENERAL: Middle-aged chronically critically ill-appearing male, lying in bed, on CPAP 12/5 via trach. HEENT: NCAT. mucous membranes moist. NECK: [address], no active bleeding. RESPIRATORY: Breath sounds present bilaterally, diminished L base, clear without wheezing or rhonchi. CARDIOVASCULAR: regular, tachycardic. Sinus tach on monitor. No murmurs rubs or gallops. GASTROINTESTINAL: J tube in place with tube feeds running . Gauze dressings in place inferior aspect of midline incision. Ostomy with soft brown colored stool. MUSCULOSKELETAL: Pitting edema 2+ bilateral feet and hands. No significant thigh edema. Multiple open wounds in the lower extremity have been dressed with gauze. NEURO: Awake,and responsive. Opens eyes spontaneously, makes eye contact, nods to questioning and mouths words . Moves bilateral feet to commands. 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 Status: Acute (3) Altered mental status ICD Code: R41.82 Status: Acute (4) Sepsis ICD Code: A41.9 Status: Acute Assessment and Plan Neuro: Acute encephalopathy secondary to sepsis improved. Acute post-surgical pain Chronic pain ICU acquired weakness. -Pt alert, responsive, moving extremities on command - fentanyl patch 125mcg/h q3d in view of ongoing significant Dilaudid IV requirement. - On oxycodone 20mg per tube q4h scheduled. Scheduled acetaminophen was discontinued 01/15 in view of prior h/o Hep C with hepatic fibrosis. - Dilaudid 2-4mg Iv q2h prn for breakthrough pain Respiratory Acute respiratory failure-extubated 12/16/15, reintubated for surgery 12/18 Acute hypoxic and hypercarbic respiratory failure Acute healthcare associated pneumonia- resolved NIGEL on home CPAP - Perc Tracheostomy 12/27 (Dr. Miller). Trach exchanged 8.0 shiley with cuff on 01/19. - Vent bundle. Head of bed at 30 degrees. Duoneb q6h and prn. - t-piece trial today. - CT guided thoracentesis 01/27. --CXR 01/23 LLL atelectasis, resolution of pleural effusions -. Continue fluid mobilization with lasix on PRN basis CV Hemorrhagic shock- resolved Septic Shock- resolved Volume overload Hypertension Tachycardia - Maintain MAP > 65 mmHg. - Cortisol level 14 on 12/14 - Stopped stress dose hydrocortisone on 01/12 and started prednisone 10 mg daily 01/13. down to 5mg daily on 01/28. plan to d/c on 02/04. - Echo 12/07 EF 65-70%, grade I diastolic dysfunction. - increase metop to 75 q6h FENRenal: DEIRDRE (resolved) Hypernatremia Hypophosphatemia(resolved) Anasarca, third spacing. Severe hypoalbuminemia - Hypernatremia again, mild with FWD of 1.1 L. Free water flushes 200 q8. -Creatinine normalized. Urine eos negative. Off vancomycin. Avoiding nephrotoxins. -Monitor BMP- replete electrolytes per ICU protocol -Multivitamin q/day GI Acute GIB, hemorrhagic shock (resolved, now with recurrent anemia but not shock) Perforated right colon with colitis s/p ex-lap, extended right hemicolectomy with primary ileocolic anastamosis, washout, open abdomen (12/18) s/p Ex lap 01/05 for bleeding gastric ulcer Acute protein calorie malnutrition- severe Chronic hepatitis C s/p interferon/ribavirin years ago. Liver biopsy 04/14/08 Melena-resolved 01/22 Severe protein calorie malnutrition - EGD 12/26/15 showed 2 large gastric ulcers with active bleeding status post epinephrine infusion and cauterization - OR on 12/24 with Removal of VAC, washout, pancreatic drain and pelvic drain placement, gastrostomy, feeding jejunostomy and closure of abdomen with application of VAC device in the subcutaneous tissue. -to OR 01/05 with GI bleeding and hemorrhagic shock. Had bleeding gastric ulcer and pneumatosis of stomach. Underwent gastrotomy with ligation of gastric ulcer , lysis of adhesions, wound VAC placement -01/16 Endoscopy showed - ulcers at antrum and cardia without stigmata of bleeding and no exposed vessel. Granulation tissue at suture line without bleeding. Small ulceration there also without bleeding. Duodenum normal. At low risk for UGI bleeding per GI, okay for anticoagulation from their point of view. Avoid NSAIDS/ASA. NGT removed 01/16, to remain out per GI; Dr. Sanchez. Repeat EGD in 2 months ( Mar)per GI recs. -Prior TPN stopped 01/01. Again on TPN 01/08-01/14. -Continue Protonix 40 g IV q12h -Albumin 1.1- Beneprotein 1 packet increased to QID 01/25. -Prealbumin 14 on 01/26. Jevity goal rate to 65/hr based on nutritions most recent recommendations. Can repeat prealbumin in a week and if not improving, consider metabolic cart. Heme: Acute Anemia secondary to acute blood loss Thrombocytopenia Hypofibrinogenemia secondary to consumption and acute blood loss Coagulopathy secondary to consumption and acute blood loss --monitor CBC. Hgb is 7-8. Becomes symptomatic (tachycardic) when <7. Transfuse as needed. Had EGD 01/16 in view of anemia but no evidence of bleeding. Melena resolved. No obvious active bleeding. Transfused 1 unit PRBC in am of 01/27. - does not meet transfusion triggers today. --Hep PLT ab negative on 12/03 - Ferrous Sulfate 300mg bid - LDH and haptoglobin only mildly elevated, likely not active hemolysis. - peripheral smear not consistent with microangiopathic hemolytic process. ID Severe sepsis Necrotizing Fascitis - MSSA on wound culture 12/07. Ecoli bacteremia 12/01 MSSA bacteremia 12/05. Cleared on f/u blood culture 12/07, 12/12. Candidemia (blood culture 01/04 with Nava parapsilosis) Sepsis of Intra-abdominal origin. C. difficile toxic megacolon (based on pathology C diff vs ischemia, C diff test negative) Bacteremia- gram positive cocci 01/21 --Debridement 12/01 p.m at bedside by Dr Pedro and Dr. Hartmann --R hand, forearm and olecranon bursa I and D and Wound vac 12/07 Dr Chavez. Nava parapsilosis in blood culture from 01/04 most likely from an intra- abdominal source(central line was changed on 01/04). Subsequent blood cultures have been negative for yeast. Seen by Dr. Wu 01/13 and no evidence of endogenous fungal endophthalmitis -- ABX per ID: Now on Fluconazole alone 01/09, convert to PO, total 4 week course. Previously: cefepime 12/17-01/16,flagyl IV 12/17-01/16 , Vancomycin 01/04-01/16 ( trough 20 on 01/15). Micafungin stopped per ID 01/08. Amphotericin B started by ID on 01/08 and stopped 01/09. CT abdomen 01/22 - 5 cm sub diaphragmatic fluid collection status post splenectomy. Initially there were plans for IR to drain however interventional radiologist reviewed images and states that there appears to be residual splenic tissue without drainable fluid collection. ID following, Dr. Becerra 01/23 blood culture -staph hemolyticus, felt to be contaminant. 01/22 noted oral thrush- Nystatin 5 ml QID (swish and spit) Wound care following for wounds- Wound vac discontinued 01/21 -Plastic Surgery requested for reassessment of LUE and skin care protocol for left arm 01/20, following recommendations --12/17 blood cultures: NGTD 12/17 central line culture: NGTD 12/17 urine cultures: NGTD 12/17 sputum cultures: NGTD C. difficile toxin 12/17: Negative (3rd negative toxin screen) -01/04 Blood culture with nava parapsilosis 01/04: horn culture, bronch with BAL, 01/04: CT chest/abd/pelvis without contrast: LLL consolidation, otherwise unchanged. 01/04: clinically LLL VAP. 01/08 Blood cultures: no growth 01/09 blood culture peripheral - NGTD 01/12 sputum cutlure - neg 01/12 - urine culture NGTD. 01/23- Bld culture-Staph hemolyticus 01/22- Oral Thrush ID signed off, gave stop date for fluconazole. Endocrine: Hyperglycemia of Critical Illness Diabetes - off Insulin drip - Levemir BID on hold, not clinically indicated at this time - On low-dose insulin sliding scale with bedside glucose every 6 hours, not requiring coverage. - Prednisone 10mg po daily since 01/13, weaned to 5mg po daily. Previously was on prednisone as an outpatient. Has been on hydrocortisone intermittently when he has gone to the OR or decompensated. MSK: -Daily functional maintenance of extremities x 4 -US LUE 01/22- negative for DVT -Multi-Podis soft boots prevent foot drop -PT eval and treat -OOB to recliner chair daily , currently tolerating 2 hours Prophylaxis: GI Prophylaxis: -- Protonix IV BID DVT Prophylaxis: - SCDs Heparin SQ 5000 u subcut discontinued 01/23, after 1 dose due to bleeding at trach . No chemical DVT Prophylaxis, OOB to chair and daily functional maintenance of extremities x 4 ACCESS: --PIV x 2. PT/OT. OOB to stretcher chair. Discuss SENIOR WAREHOUSE CLERK at bedside. Level 2 Problem Qualifiers (1) Respiratory failure: Qualified Code: J96.00 - Acute respiratory failure, unspecified whether with hypoxia or hypercapnia (2) Altered mental status: Qualified Code: R41.0 - Delirium (3) Sepsis: Qualified Code: A41.9 - Sepsis, due to unspecified organism Jeyson Fernández MD Feb 01, 2016 15:41
[2016-02-01] MEDS: ACETAMINOPHEN 650 MG/20.3 ML UDC TUBE PRN (16:26)
[2016-02-01] MEDS: SODIUM CHLORIDE 0.9% FLUSH 5 ML FLUSH IVF PRN (20:06)
[2016-02-02] VITALS (18 sets, daily range): BP systolic 99–182; BP diastolic 55–98; PULSE 83–121; RESP 14–34; TEMP 98.5–100; O2SAT 90–100
[2016-02-02] MEDS: oxyCODONE HCL ORAL CONC 20 MG/ML SYRINGE PO SCH ×6 (01:00→21:16)
[2016-02-02] MEDS: FREE WATER G-TUBE SCH ×3 (01:00→16:30)
[2016-02-02] MEDS: CHLORHEXIDINE GLUCONATE 2 % 1 PACK (2 CLOTHS) TOP SCH (03:20)
[2016-02-02] MEDS: PANTOPRAZOLE SODIUM 40 MG VIAL IV PUSH SCH ×2 (05:04→17:08)
[2016-02-02] MEDS: METOPROLOL TARTRATE 25 MG TAB TUBE SCH ×3 (05:05→17:06)
[2016-02-02 05:27] LABS: HEMATOCRIT 22.1 % (39.0-51.0); MEAN CELL VOLUME 92.8 FL (80.0-100.0); MEAN CORPUSCULAR HGB CONC 32.3 % (32.0-36.0); PLATELET COUNT 354 TH/MM3 (150-450); RED BLOOD COUNT 2.38 MIL/MM3 (4.50-5.90); RED CELL DISTRIBUTION WIDTH 17.3 % (11.6-17.2); REVIEW FLAG FINAL; WHITE BLOOD COUNT 12.1 TH/MM3 (4.0-11.0)
[2016-02-02 05:54] LABS: BICARBONATE 30.5 MEQ/L (21.0-32.0); POTASSIUM 4.8 MEQ/L (3.5-5.1)
[2016-02-02] MEDS: INSULIN ASPART SUPPLEMENTAL SCALE SQ SCH ×4 (06:00→18:00)
[2016-02-02] MEDS: SILVER SULFADIAZINE 1% CR 400 GM JAR TOPICAL SCH (09:00)
[2016-02-02] MEDS: NEOMYCIN/POLYMYXIN/BACITRACIN OINT 15 GM TUBE TOPICAL SCH ×2 (09:00→21:00)
[2016-02-02] MEDS: POVIDONE IODINE 10% OINT 30 GM TUBE TOPICAL SCH (09:00)
[2016-02-02] MEDS: TAMSULOSIN HCL 0.4 MG CAP PO SCH (09:00)
[2016-02-02] MEDS: predniSONE 5 MG TAB NG SCH (09:43)
[2016-02-02] MEDS: FERROUS SULFATE 300 MG /5ML UDC TUBE SCH ×2 (09:43→21:16)
[2016-02-02] MEDS: CHLORHEXIDINE 0.12% (ORAL KIT) 15 ML CUP MT SCH ×2 (09:43→21:17)
[2016-02-02] MEDS: NYSTATIN SUSP 500,000 U/5 ML CUP SWISH-SPIT SCH ×4 (09:43→21:16)
[2016-02-02] MEDS: FLUCONAZOLE 200 MG TAB PO SCH (09:43)
[2016-02-02] MEDS: MULTIVITAMINS LIQUID 5 ML UDC TUBE SCH (09:43)
[2016-02-02] MEDS: HYDROmorphone HCL PF 4 MG/ML VIAL IV PUSH PRN (14:41)
--- NOTE | 2016-02-02 15:03 | HHI.CCPN ---
Subjective Remarks/Hospital Course 55-year-old male brought by EMS with altered mental status. He has been confused for 2 days but this morning has been the worst. He has history of chronic opiate medications including methadone and morphine that he takes for pain management and hence they gave him Narcan IV which brought the GCS up to 13. The blood glucose was 74. He has open wounds from his right upper and bilateral lower extremities. He has history of hepatitis C. Last week he was pealing and eating shrimps. Bedside blood sugar was 76 in the ER. He was tachycardic in 1 teens and was intubated in the ED for airway protection. Admitted to ICU with sepsis due to Staph Aureus hand infection and E. Coli bacteriemia. 12/05 Patient remains sedated with Fentanyl and intubated. On Levophed 3 mics, Vasopressin 0.03 mics and Bicarb drip. T:99.8 TF placed on hold OGT to LIWS last night - gastric drainage 525ml overnight. 12/06 Patient is sedated with Fentanyl and intubated, On Levophed 3 mics, off vasopressin. Gastric output 400ml in 24 hrs. KUB abdomen yesterday mildly distended colon otherwise non specific KUB. 12/07 Patient is off sedation remains intubated tolerated CPAP for most day yesterday. Afebrile. on no drips, tolerating tube feeds. 12/08 Patient went to OR yesterday for debridement and irrigation of right forearm and wound VAC placement. Given 2U PRBC and 2u PLT yesterday and currently receiving 1of 2 u additional PRBC. Hgb 7.7, PLT 43 this morning. Patient also started on pressors now on Levophed 10 mics. Vasopressin 0.04 mics. On no sedation. 12/09 Patient remains intubated off pressors, Afebrile. Tolerating tube feeds. Afebrile. 12/10 Patient is sedated with Fentanyl and intubated. Awake and follows commands off sedation. Afebrile. 12/11 Patient had ?SVT overnight given Lopressor 2.5mg IV x1, Remains intubated and sedated with Fentanyl. Afebrile. Tolerating TF. 12/12 Patient spoked fever last night with T: 101.5, sedated with Fentanyl and intubated. 12/13 Patient had an episode of desaturation overnight required increase FIO2/ PEE now on ACV with RR 14, TV 550, PEEP: 12, FIO2 60% with sats 100% CT chest performed overnight showed b/l consolidation and small pleural effusion. Had T: 100.0 last night. 12/14 Tolerating PS 15/CPAP 10 FiO2 40% with rSBI 38, weaning. . Awake and alert , following commands. Hypotensive overnight and levophed restarted up to 12 mcg/ min. Nurse has been weaning throughout the day. Suspected adrenal insufficiency as he was on prednisone as outpatient for gout and has not been on stress dose steroids. Given decadron. 12/15 Transfused 1 unit PRBC for Hgb 7.0 yesterday, 1 unit PRBC for Hgb 6.6 today and now Hgb 8.3. Does not clinically have e/o active GI bleeding and wound vac output nonbloody. Stool 1500 output, C diff negative. No abdominal pain. Remains Awake and alert, remained on CPAP 10/5 last night and is now tolerating CPAP 5/5. 12/16: Extubated yesterday tolerating well. Breathing comfortably. Able to follow commands. UO 1.8 L in 24 hours. Na slightly increased to 153. 12/17: Significantly worse this AM. WBC up to 28 from 16. Hgb 5.2 from 7.9. tachycardic. pale this AM. states he feels tired. Continues on BiPAP. Plan for debridement of his arms today. LIJ CVL does not have any signs of overt infection. 12/18: Blood cell count continues to rise today to 30 from 28. Required 1 unit of blood for hemoglobin of 6.6 which improved to 7.7 this morning. However, patient remains tachycardic in the 120s and significantly pale. CT abdomen and pelvis ordered and pending. Tachypneic with respiratory rate in the 30s. Only small amount of dark tarry stool yesterday with approximately 300 cc of stool output. C. difficile toxin negative 3. After discussion with infectious disease, restart vancomycin, cefepime, Flagyl, micafungin. Horn cultures are pending. Per discussion with GI, will not scope as endoscopy is high risk given his tenuous respiratory status this point. Slightly worse hypernatremia as well as worsening acute kidney injury this morning. 12/19: POD 1 s/p ex-lap, washout for perforated ascending colon with extended right hemicolectomy, primary ileocolic anastamosis, open abdomen, septic shock, acute hypoxic and hypercarbic respiratory failure. Significantly critically ill overnight: required 6L ivf resuscitation, 1 unit prbc, norepinephrine, vasopressin, stress dose hydrocortisone. This morning, remains on high-dose vasopressors. still has large volume ivf requirement. Significant SIRS response. Vent requirements increasing with all this volume resuscitation, PEEP up to 10. He remains critically ill, and although I do believe we have surgical source control, I anticipate he will continue to clinically decline before he starts to make improvements. 12/20: Off pressors. follows commands on sedation holiday. +11L over last 3 days during acute illness, +22L since admission. We are going to have to get some of this volume back before we are able to close him given his severe anasarca. 12/21: Taken back to the OR yesterday afternoon for washout and completion colectomy. Postoperatively was significantly under resuscitated as well as had ongoing active oozing. Patient was coagulopathy. The patient was in distributive and hemorrhagic shock. The patient was given multiple units of blood products overnight. Patient was thrombocytopenic, hypofibrinogenemic, coagulopathic. Given significant volume of blood product resuscitation: 24h blood products: 13 prbc 8 ffp 2 plt 1 10-pack cryo This morning continues to have significant amount of bright red output out of his BEV and wound VAC, approximately 500 cc an hour out of his wound VAC, and approximately 75 an mils every 10 minutes out of a BEV. I discussed with surgery and we will correct his coagulopathy and plan to go back to the OR for exploration early this afternoon. 12/22: Clinically starting to improve hemodynamically. off vasopressors. Net+ 26L. CVP rising to 14. UOP adequate. Hgb 7 this AM. 12/23 Seen postop. Hypertensive, BP improved with additional pain medicine. Remains net positive but urine output excellent 3L in 24 hours. Remains on Lasix gtt. went to OR today status post wound VAC change and partial closure 12/24: Fascia was closed yesterday. Wound Vac in place. Remains sedated. -2L negative balance, but with increasing BUN/creat. Discontinue Bumex infusion, start scheduled Bumex 2 mg IV every 12 with IV albumin. 12/25: Overnight became hypotensive requiring Levophed to be restarted. Hemoglobin dropped to 4.1. Noted to have bloody drainage from G-tube and dorsal ileostomy with black stool output 12/26: s/p EGD yesterday-2 gastric ulcers bleeding, stomach a significant part had decreased discoloration indicating probable ischemia. s/p epi injection and cauterization. Continues to have coffee ground G tube output, black tarry Ileostomy output. Hemoglobin down to 6.4 getting 2 units of PRBC. GI recent recommending intervention radiology consult. 12/27: For trach today. Meds ordered. Hgb decline consistent with recent transfusions and senescent cells. 12/28: Trach clean, dry. Start SBTs. Check prealbumin. Continue TPN. 12/29: Looks in direction of voice. I have not seen more purposeful reactions. Line > 12 days old, replace today. Prealbumin 20 - good response to TPN. 12/30: Remains vented, encephalopathic, puss like drainage from left hand, WBC increased 01/01: no significant changes. continues to remain critically ill with minimal improvements over the last week. abdomen closed. still total body volume overloaded. 01/02: more awake today than yesterday. continues to be critically ill with minimal improvements overall. need to look towards placement. -900 yesterday. 01/03: up in chair yesterday. tolerated short run of SBT 15/5/40%. net euvolemic. wbc downtrending. 01/04: wbc slightly uptrended 33 from 30, more acidotic on BMP (14 from 20). Also spiking fevers to 102.3 despite tylenol. continues on broad spectrum abx. yesterday's cxr had what may be a new LLL infiltrate. today, though, he is following commands and more awake and alert. 01/05: LLL pna clinically and based on bronch. CT c/a/p done last night without any significant intra-abdominal change. small left pleural effusion which appears simple in nature, and LLL consolidation. ID broadened abx. today , wbc downtrending. culture data pending. Hgb 7 this AM. 01/06: Underwent exploratory laparotomy last night with findings of bleeding gastric ulcer which was oversewn by Dr. Verdin abdomen left open with wound VAC in place. Received 3 units PRBCs overnight. Remains on Wesley-Synephrine drip this morning for hypotension. Remains sedated, on mechanical ventilation. 01/07: Remains sedated, on mechanical ventilation. For abdominal incision site closure today. Significant positive fluid balance over the last 2 days. Off pressors currently. Lasix to mobilize fluid. 01/08: Remains sedated, on mechanical ventilation via tracheostomy. Underwent abdominal incision site closure this morning. Remains off pressors. Anasarca noted. Blood cultures from 01/04 growing Nava parapsilosis. 01/09: Drowsy/sedated, arousable, on mechanical ventilation via tracheostomy. TPN started yesterday. To be started on J-tube feeds per discussion with surgery 01/10: Sedated, arousable, on mechanical ventilation via tracheostomy. Remains on TPN. J-tube feeds being started today. 01/11: Was on T piece yesterday and rested on C Pap overnight. On TPN. Advanced J-tube feeds to 20 cc an hour today. Attempt T piece as tolerated. 01/12: Awake, tracks with his eyes. On C Pap overnight. Tolerated T piece during daytime yesterday. 01/13: Awake and alert. Was on T piece all day yesterday and was placed back on C Pap at 1:45 AM this morning. Does not appear to be in any acute distress. Tolerating J-tube feeds at 20 cc per hour. 01/14: Drowsy, easily arousable. Was on T piece all day yesterday and rested on C Pap at night. Tolerating J-tube feeds at 40 cc an hour with goal of 60 cc per hour. On TPN which will be discontinued after current bag. BEV drain with cloudy drainage. 01/15 Was placed back on ACV yesterday around 9 am due to tachypnea and remained on ACV overnight. Now on CPAP 11/20 and tolerating. BEV in lower abdomen had purulent output yesterday but RN states looks better today. Tolerating tube feeds, stool in ostomy. Off TPN. Removing CVL. 01/16 Hgb 6.6 on CBC this morning, lab draw, repeat pending. Tachycardia persists but otherwise no hemodynamic change. The NGT output yesterday was bilious, today brown/slight coffee grounds but mostly clear. No blood from BEV' s.Has been tolerating jejunal tube feeds, placed on hold for now. Has been tolerating CPAP 10/5 with RSBI 10s. GI/General surgery updated. 01/17 Hemoglobin 8.0. EGD performed yesterday showing gastric ulcers with no active bleeding. Abdominal wound dressing change today. Plan to begin trickle feeds today per general surgery. 01/18 Hgb 7.3. Tolerating trickle feeds that were resumed per general surgery.Tolerated Tpiece 2 hours yesterday. On CPAP 8/5 overnight. Now on Tpiece about 1 hour and doing well. Will continue intermittent Tpiece trials throughout the day with rest on CPAP in between. Watching off abx; cefepime discontinued 01/16. Remains on fluconazole for candidemia. 01/19 Trach developed cuff leak overnight. I exchanged Trach at bedside this morning. Tolerated Tpiece 2 hours, now resting on CPAP 8/5. Doing 2 piece trials up to 2 hours as tolerated tid and then plan to start extending duration of Tpiece trials from there. Tolerating tube feeds. 01/20 Tmax 99.2. Continued Protonix twice a day, noted melena continues in ostomy bag. Patient's T piece trials extended to 4 hours today, maximum toleration. Repeat blood cultures 01/19 still pending, WBC count still elevated. Wound care to be consulted for clarification of all specific dressing changes noted new reddened skin breakdown area on sacrum ,and eschar noted several areas left upper extremity all skin margins of wound noted erythematous. glass blower Mattie Yost in attendance of dressing change MELITAE, noted no change in left upper extremity appearance in the last 30 days per her assessment.Requested Plastic Surgery reassess LUE and wound care protocol.Patient continues to tolerate tube feeds no residual noted. 01/21 Tmax 99.0. Overnight the patient continued to have episodes of tachycardia , some heart rate 130, appear non-pain related,requiring PRN dosing of antihypertensive meds. Blood cultures returned this morning gram positive cocci. Plan for CT of the abdomen and pelvis 01/22 discussed with and per general surgery.. Discussion of wounds with Dr. Pedro, plastic surgery yesterday, plans for reevaluation by plastic surgery and definitive/ instructions regarding wound care plan for today, of focus left upper extremity. 01/22 Afebrile. Overnight , HR remains in the low 100s-120. Systolic blood pressure remained above 160 early a.m., despite increase in frequency of metoprolol. Plan for increase in dosage of metoprolol. The patient underwent CT of the abdomen and pelvis early this a.m. showing persistent 5 cm left upper quadrant subdiaphragmatic fluid collection. Surgery aware with plans of drainage per IR. Gastroenterology following, noted ostomy output color, melena resolved recommended resumption of anticoagulation prophylactically ,but will hold with plans of IR drainage of fluid collection, per general surgery at this time. 01/23 Tmax 97.7. Overnight no acute issues, one episode of elevated blood pressure, received 1 dose of hydralazine 20 mg IV, with resolution. The patient has remained nothing by mouth for tentative IR drainage of left upper quadrant fluid collection. Imaging studies reevaluated by radiologist, noted no fluid collection is observed in the left upper quadrant. Tentative scheduling of IR drainage canceled. Tube feeds resumed and DVT prophylaxis, heparin resumed. Albumin level 1.1, Beneprotein added to diet twice a day, tolerated, will increase to QID. 01/24 Overnight the patient was noted to have small amount of bleeding around trach site, surgeon was notified and gel foam was applied. Of note the patient' s SQ heparin prophylaxis was resumed and he had received 1 dose at 2100. Heparin DVT prophylaxis was discontinued, chest x-ray was performed, which was was basically unremarkable with the exception of left lower lobe atelectasis. Yesterday the patient was placed out of bed in recliner chair and remained out of bed for 3 hours. 01/25 No bleeding noted around trach site overnight. Subcutaneous heparin continues to be on hold. The patient to T piece trial was advanced to 5 hours yesterday, patient was only able to maintain 4.5 hours before tiring out. We' ll continue to attempt Tpiece trials to 5 hours. The patient's Beneprotein has been advanced to 4 times a day. The patient is out of bed to chair 2 hours each day, utilizing PT for functional maintenance of extremities 4 daily. Minimal drainage from BEV . 01/26 Reportedly was on Tpiece yesterday about 5 hours. Then got out of bed to stretcher chair for a couple of hours and then after went back to bed was tachypneic despite CPAP and was on ACV overnight until about noon today when placed back on CPAP 12/5 which he is currently tolerating well. Transfused 1 unit PRBC this morning for Hgb 6.7 that was symptomatic with heart rate 120s. Now heart rate 101. Tolerating tube feeds. 01/27: persistently anemic despite transfusions. otherwise subjectively feels much better today. cpap trials. getting 1 unit prbc today. 01/28: 1 unit prbc yesterday for hgb 6.8, recheck 7 and stable 7 this AM. dressings taken down and upper arms where skin tears are, there is small amount of oozing dark blood. likely the source of his anemia is combination blood loss from chronic oozing like this as well as long-term phlebotomy. 01/29: hgb 6.6 this morning. wounds still oozing blood, no signs of active bleeding. discussed with ID, plan for 4 weeks fluconazole, but will likely change to PO. left arm piv with superficial thrombophlebitis overnight, removed. iv access is very difficult. his left arm this morning is edematous- he is not on anticoagulation. 01/30: hgb improved after 1 unit prbc yesterday. also tolerating SBTs better today. let arm ultrasound negative for DVT. 01/31: tolerated CPAP well yesterday. T-piece trials today. Hgb stable. Subjective: 02/01: Currently tolerating T piece. Hemoglobin is 7.1, I have ordered 1 unit of PRBC. Recheck in a.m. Objective Vital Signs Date Time Temp Pulse Resp B/P Pulse Ox O2 Delivery O2 Flow Rate FiO2 02/02/16 14:06 90 T-piece 40 02/02/16 12:00 101 02/02/16 12:00 98.7 34 182/87 02/01/16 13:45 6.00 Intake and Output 02/01/16 02/01/16 02/02/16 08:00 16:00 00:00 Intake Total 1080 ml 1530 ml 815 ml Output Total 400 ml 675 ml 650 ml Balance 680 ml 855 ml 165 ml Result Diagram: 02/02/16 0426 02/02/16 0341 Imaging Last Impressions Chest X-Ray 01/24/16 0000 Signed Impressions: Service Date/Time: January 23:12 - CONCLUSION: 1. Left lower lobe atelectasis versus pneumonia. There has been no significant change when compared to the prior exam. Tracheostomy tube is in expected position Ramone Hall MD Abdomen/Pelvis CT 01/23/16 0800 Signed Impressions: Service Date/Time: Saturday, January 23, 2016 09:05 - CONCLUSION: Relative to the prior study the marked distention of the stomach is reduced. There is a persistent 5 cm left upper quadrant sub-diaphragmatic fluid collection and drain in the left upper quadrant. Patient is post splenectomy. Jejunostomy is in place and ostomy is noted in the right lower abdomen. No free fluid or free air is appreciated and there is no evidence of obstruction. Bilateral pleural effusions persists small but slightly larger on the right with left lower lobe consolidation. Jared Medina MD ADDENDUM: I have reviewed the images with respect to her request made for left subdiaphragmatic drainage of a fluid collection. No fluid collection is observed within the left upper quadrant. There is residual splenic tissue that measures 5 cm in diameter with Hounsfield units 62. The stomach fundus extends up into the subdiaphragmatic location. No subdiaphragmatic fluid collection is observed. Surgical drains are noted. Osmar Chavez Jr., MD Upper Extremity Ultrasound 01/23/16 0600 Signed Impressions: Service Date/Time: Saturday, January 23, 2016 11:29 - CONCLUSION: Normal examination. No evidence DVT Jared Medina MD Chest CT 01/05/16 0000 Signed Impressions: Service Date/Time: Tuesday, January 05, 2016 23:15 - CONCLUSION: 1. Persistent left lower lobar consolidation. Improved consolidative infiltrates in the right lower lung. 2. Interval increase size bilateral pleural effusions , left greater than right. Osmar Alegria MD Celiac/Hepatic Arteriogram 12/27/15 0000 Signed Impressions: Service Date/Time: December 13:41 - CONCLUSION: 1. No active GI bleed identified. Robert Mckinney MD Abdomen X-Ray 12/18/15 0000 Signed Impressions: Service Date/Time: Friday, December 18, 2015 16:05 - CONCLUSION: Feeding tube tip is at the gastric antrum. Arnaldo Elias MD Head CT 12/02/15 1013 Signed Impressions: Service Date/Time: Wednesday, December 02, 2015 11:00 - CONCLUSION: 1. No intracranial abnormality is seen. 2. Air-fluid level in the right maxillary sinus. Arnaldo Reyes MD Last Impressions Abdomen/Pelvis CT 01/23/16 0800 Signed Impressions: Service Date/Time: Saturday, January 23, 2016 09:05 - CONCLUSION: Relative to the prior study the marked distention of the stomach is reduced. There is a persistent 5 cm left upper quadrant sub-diaphragmatic fluid collection and drain in the left upper quadrant. Patient is post splenectomy. Jejunostomy is in place and ostomy is noted in the right lower abdomen. No free fluid or free air is appreciated and there is no evidence of obstruction. Bilateral pleural effusions persists small but slightly larger on the right with left lower lobe consolidation. Jared Medina MD ADDENDUM: I have reviewed the images with respect to her request made for left subdiaphragmatic drainage of a fluid collection. No fluid collection is observed within the left upper quadrant. There is residual splenic tissue that measures 5 cm in diameter with Hounsfield units 62. The stomach fundus extends up into the subdiaphragmatic location. No subdiaphragmatic fluid collection is observed. Surgical drains are noted. Osmar Chavez Jr., MD Upper Extremity Ultrasound 01/23/16 0600 Signed Impressions: Service Date/Time: Saturday, January 23, 2016 11:29 - CONCLUSION: Normal examination. No evidence DVT Jared Medina MD Chest X-Ray 01/21/16 0600 Signed Impressions: Service Date/Time: Thursday, January 21, 2016 05:12 - CONCLUSION: 1. Cardiomegaly and left retrocardiac/basilar density. 2. Slight interstitial prominence. Wojciech Lockhart MD Chest CT 01/05/16 0000 Signed Impressions: Service Date/Time: Tuesday, January 05, 2016 23:15 - CONCLUSION: 1. Persistent left lower lobar consolidation. Improved consolidative infiltrates in the right lower lung. 2. Interval increase size bilateral pleural effusions , left greater than right. Osmar Alegria MD Celiac/Hepatic Arteriogram 12/27/15 0000 Signed Impressions: Service Date/Time: December 13:41 - CONCLUSION: 1. No active GI bleed identified. Robert Mckinney MD Abdomen X-Ray 12/18/15 0000 Signed Impressions: Service Date/Time: Friday, December 18, 2015 16:05 - CONCLUSION: Feeding tube tip is at the gastric antrum. Arnaldo Elias MD Head CT 12/02/15 1013 Signed Impressions: Service Date/Time: Wednesday, December 02, 2015 11:00 - CONCLUSION: 1. No intracranial abnormality is seen. 2. Air-fluid level in the right maxillary sinus. Arnaldo Reyes MD Last Impressions Abdomen/Pelvis CT 01/23/16 0800 Signed Impressions: Service Date/Time: Saturday, January 23, 2016 09:05 - CONCLUSION: Relative to the prior study the marked distention of the stomach is reduced. There is a persistent 5 cm left upper quadrant sub-diaphragmatic fluid collection and drain in the left upper quadrant. Patient is post splenectomy. Jejunostomy is in place and ostomy is noted in the right lower abdomen. No free fluid or free air is appreciated and there is no evidence of obstruction. Bilateral pleural effusions persists small but slightly larger on the right with left lower lobe consolidation. Jared Medina MD Upper Extremity Ultrasound 01/23/16 0600 Signed Impressions: Service Date/Time: Saturday, January 23, 2016 11:29 - CONCLUSION: Normal examination. No evidence DVT Jared Medina MD Chest X-Ray 01/21/16 0600 Signed Impressions: Service Date/Time: Thursday, January 21, 2016 05:12 - CONCLUSION: 1. Cardiomegaly and left retrocardiac/basilar density. 2. Slight interstitial prominence. Wojciech Lockhart MD Chest CT 01/05/16 0000 Signed Impressions: Service Date/Time: Tuesday, January 05, 2016 23:15 - CONCLUSION: 1. Persistent left lower lobar consolidation. Improved consolidative infiltrates in the right lower lung. 2. Interval increase size bilateral pleural effusions , left greater than right. Osmar Alegria MD Celiac/Hepatic Arteriogram 12/27/15 0000 Signed Impressions: Service Date/Time: December 13:41 - CONCLUSION: 1. No active GI bleed identified. Robert Mckinney MD Abdomen X-Ray 12/18/15 0000 Signed Impressions: Service Date/Time: Friday, December 18, 2015 16:05 - CONCLUSION: Feeding tube tip is at the gastric antrum. Arnaldo Elias MD Head CT 12/02/15 1013 Signed Impressions: Service Date/Time: Wednesday, December 02, 2015 11:00 - CONCLUSION: 1. No intracranial abnormality is seen. 2. Air-fluid level in the right maxillary sinus. Arnaldo Reyes MD Last 48 hours Impressions Chest X-Ray 01/07/16 0000 Signed Impressions: Service Date/Time: Thursday, January 07, 2016 04:23 - CONCLUSION: Worsening consolidation or atelectasis at the left mid and lower lung. Some degree of left effusion may also be contributing to this. Arnaldo Reyes MD Chest X-Ray 01/06/16 0000 Signed Impressions: Service Date/Time: Wednesday, January 06, 2016 19:46 - CONCLUSION: 1. Basilar airspace disease improved from January 04. Tracheostomy and right central line in satisfactory position. Nomi Falcon MD Abdomen/Pelvis CT 01/06/16 0000 Signed Impressions: Service Date/Time: Wednesday, January 06, 2016 22:07 - CONCLUSION: 1. Over the last day there is development of a large mass in the left upper quadrant measuring up to 18 x 13 cm which appears to be associated with the stomach. The mass is characterized by somewhat concentric areas of decreased and increased attenuation with multiple locules of air. Primary differential diagnosis is hemorrhage into the gastric wall with gastric pneumatosis and possibly gastric ischemia. Gastrostomy is again noted anteriorly. 2. Remainder the exam is relatively stable with drainage tube left upper quadrant, splenectomy, bilateral effusions, feeding jejunostomy and drain within the pelvis. There is also diffuse anasarca and nonobstructing renal calculi. Nomi Falcon MD Last Impressions Chest X-Ray 12/17/15 0600 Signed Impressions: Service Date/Time: Thursday, December 17, 2015 03:25 - CONCLUSION: Persistent left lower lobe consolidation. Osmar Alegria MD Chest CT 12/14/15 0000 Signed Impressions: Service Date/Time: Monday, December 14, 2015 06:12 - CONCLUSION: 1. Cardiomegaly with bilateral consolidation, likely CHF. Pneumonia cannot be excluded. 2. Small right pleural effusion. Wojciech Lockhart MD Abdomen X-Ray 12/06/15 0000 Signed Impressions: Service Date/Time: November 09:53 - CONCLUSION: Nonspecific KUB. Air is seen within a mildly distended colon but contrast is clearly seen in the rectum. Arnaldo Reyes MD Abdomen/Pelvis CT 12/04/15 0000 Signed Impressions: Service Date/Time: Friday, December 04, 2015 16:24 - CONCLUSION: 1. Mildly distended small bowel in the mid and lower abdomen. Contrast is clearly seen extending into the distal small bowel and ascending colon so a complete obstruction is not seen. A transition point is not seen. This pattern likely represents an ileus versus a partial obstruction. 2. Multiple nonobstructing renal stones. 3. Abnormal appearance of the spleen which appears to represent a splenule. It could be correlated if the patient has had either primary splenic removal or splenic injury and this is what is either left of the spleen or a developing splenule. This is likely of no significance. 4. Mild ascites. 5. Increased density within the gallbladder representing either tumefactive sludge or noncalcified stones. 6. Mild bilateral pleural effusions with prominent areas of lower lobe atelectasis or consolidation at the bases bilaterally. 7. Subacute to chronic bilateral rib fractures and multiple compression fractures in the lower thoracic and lumbar spine as described above. The patient does have a prior CT examination from 08/26/2014. All the compression deformities described above are new when compared to that scan. Arnaldo Reyes MD Head CT 12/02/15 1013 Signed Impressions: Service Date/Time: Wednesday, December 02, 2015 11:00 - CONCLUSION: 1. No intracranial abnormality is seen. 2. Air-fluid level in the right maxillary sinus. Arnaldo Reyes MD Objective Remarks Jevity 1.5 @ 60 mL per hour, Beneprotein QID GENERAL: Middle-aged chronically critically ill-appearing male, lying in bed, on TP via trach. HEENT: NCAT. mucous membranes moist. NECK: [address], no active bleeding, no evidence of infection. RESPIRATORY: Breath sounds present bilaterally, diminished L base, clear without wheezing or rhonchi. CARDIOVASCULAR: regular, tachycardic. Sinus tach on monitor. No murmurs rubs or gallops. GASTROINTESTINAL: J tube in place with tube feeds running . Gauze dressings in place inferior aspect of midline incision. Ostomy with brown colored stool. MUSCULOSKELETAL: Pitting edema 2+ bilateral feet and hands. No significant thigh edema. Multiple open wounds in the lower extremity with gauze dressing. NEURO: Awake and responsive. Opens eyes spontaneously, makes eye contact, nods to questioning and mouths words . Moves both feet to commands. 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 Status: Acute (3) Altered mental status ICD Code: R41.82 Status: Acute (4) Sepsis ICD Code: A41.9 Status: Acute Assessment and Plan Neuro: Acute encephalopathy secondary to sepsis improved. Acute post-surgical pain Chronic pain ICU acquired weakness. - Pt alert, responsive, moving extremities on command - fentanyl patch 125mcg/h q3d in view of ongoing significant Dilaudid IV requirement. - On oxycodone 20mg per tube q4h scheduled. Scheduled acetaminophen was discontinued 01/15 in view of prior h/o Hep C with hepatic fibrosis. - Dilaudid 2-4mg Iv q2h prn for breakthrough pain Respiratory Acute respiratory failure-extubated 12/16/15, reintubated for surgery 12/18 Acute hypoxic and hypercarbic respiratory failure improving Acute healthcare associated pneumonia- resolved NIGEL on home CPAP - Perc Tracheostomy 12/27 (Dr. Miller). Trach exchanged 8.0 Shiley with cuff on 01/19. - Vent bundle. Head of bed at 30 degrees. DuoNeb q6h and prn. - T-piece daily as tolerated - CT guided thoracentesis 01/27. - CXR 01/23 LLL atelectasis, resolution of pleural effusions - Continue fluid mobilization with lasix on PRN basis CV Hemorrhagic shock- resolved Septic Shock- resolved Volume overload Hypertension Tachycardia - Maintain MAP > 65 mmHg. - Cortisol level 14 on 12/14 - Stopped stress dose hydrocortisone on 01/12 and started prednisone 10 mg daily 01/13. down to 5mg daily on 01/28. plan to d/c on 02/04. - Echo 12/07 EF 65-70%, grade I diastolic dysfunction. - Metoprolol 75 q6h FENRenal: DEIRDRE (resolved) Hypernatremia Hypophosphatemia(resolved) Anasarca, third spacing. Severe hypoalbuminemia -Hypernatremia-continue Free water flushes 200 q8. -Creatinine normalized. Urine eos negative. Off vancomycin. Avoiding nephrotoxins. -Monitor BMP- replete electrolytes per ICU protocol -Multivitamin q/day GI Acute GIB, hemorrhagic shock (resolved, now with recurrent anemia but not shock) Perforated right colon with colitis s/p ex-lap, extended right hemicolectomy with primary ileocolic anastamosis, washout, open abdomen (12/18) s/p Ex lap 01/05 for bleeding gastric ulcer Acute protein calorie malnutrition- severe Chronic hepatitis C s/p interferon/ribavirin years ago. Liver biopsy 04/14/08 Melena-resolved 01/22 Severe protein calorie malnutrition - EGD 12/26/15 showed 2 large gastric ulcers with active bleeding status post epinephrine infusion and cauterization - OR on 12/24 with Removal of VAC, washout, pancreatic drain and pelvic drain placement, gastrostomy, feeding jejunostomy and closure of abdomen with application of VAC device in the subcutaneous tissue. -to OR 01/05 with GI bleeding and hemorrhagic shock. Had bleeding gastric ulcer and pneumatosis of stomach. Underwent gastrotomy with ligation of gastric ulcer , lysis of adhesions, wound VAC placement -01/16 Endoscopy showed - ulcers at antrum and cardia without stigmata of bleeding and no exposed vessel. Granulation tissue at suture line without bleeding. Small ulceration there also without bleeding. Duodenum normal. At low risk for UGI bleeding per GI, okay for anticoagulation from their point of view. Avoid NSAIDS/ASA. NGT removed 01/16, to remain out per GI; Dr. Sanchez. Repeat EGD in 2 months ( Mar)per GI recs. -Prior TPN stopped 01/01. Again on TPN 01/08-01/14. -Continue Protonix 40 g IV q12h -Albumin 1.1- Beneprotein 1 packet increased to QID 01/25. -Prealbumin 14 on 01/26. Jevity goal rate to 65/hr based on nutritions most recent recommendations. Can repeat prealbumin in a week and if not improving, consider metabolic cart. Heme: Acute Anemia secondary to acute blood loss Thrombocytopenia Hypofibrinogenemia secondary to consumption and acute blood loss Coagulopathy secondary to consumption and acute blood loss --monitor CBC. Hgb is 7-8. Today hemoglobin is 7.1, transfuse 1 unit PRBC. Had EGD 01/16 in view of anemia but no evidence of bleeding. Melena resolved. No obvious active bleeding. Transfused 1 unit PRBC in am of 01/27. --Hep PLT ab negative on 12/03 - Ferrous Sulfate 300mg bid - LDH and haptoglobin only mildly elevated, likely not active hemolysis. - peripheral smear not consistent with microangiopathic hemolytic process. ID Severe sepsis Necrotizing Fascitis - MSSA on wound culture 12/07. Ecoli bacteremia 12/01 MSSA bacteremia 12/05. Cleared on f/u blood culture 12/07, 12/12. Candidemia (blood culture 01/04 with Nava parapsilosis) Sepsis of Intra-abdominal origin. C. difficile toxic megacolon (based on pathology C diff vs ischemia, C diff test negative) Bacteremia- gram positive cocci 01/21 --Debridement 12/01 p.m at bedside by Dr Pedro and Dr. Hartmann --R hand, forearm and olecranon bursa I and D and Wound vac 12/07 Dr Chavez. Nava parapsilosis in blood culture from 01/04 most likely from an intra- abdominal source(central line was changed on 01/04). Subsequent blood cultures have been negative for yeast. Seen by Dr. Wu 01/13 and no evidence of endogenous fungal endophthalmitis -- ABX per ID: Now on Fluconazole alone 01/09, convert to PO, total 4 week course. Previously: cefepime 12/17-01/16,flagyl IV 12/17-01/16 , Vancomycin 01/04-01/16 ( trough 20 on 01/15). Micafungin stopped per ID 01/08. Amphotericin B started by ID on 01/08 and stopped 01/09. CT abdomen 01/22 - 5 cm sub diaphragmatic fluid collection status post splenectomy. Initially there were plans for IR to drain however interventional radiologist reviewed images and states that there appears to be residual splenic tissue without drainable fluid collection. ID following, Dr. Becerra 01/23 blood culture -staph hemolyticus, felt to be contaminant. 01/22 noted oral thrush- Nystatin 5 ml QID (swish and spit) Wound care following for wounds- Wound vac discontinued 01/21 -Plastic Surgery requested for reassessment of LUE and skin care protocol for left arm 01/20, following recommendations --12/17 blood cultures: NGTD 12/17 central line culture: NGTD 12/17 urine cultures: NGTD 12/17 sputum cultures: NGTD C. difficile toxin 12/17: Negative (3rd negative toxin screen) -01/04 Blood culture with nava parapsilosis 01/04: horn culture, bronch with BAL, 01/04: CT chest/abd/pelvis without contrast: LLL consolidation, otherwise unchanged. 01/04: clinically LLL VAP. 01/08 Blood cultures: no growth 01/09 blood culture peripheral - NGTD 01/12 sputum cutlure - neg 01/12 - urine culture NGTD. 01/23- Bld culture-Staph hemolyticus 01/22- Oral Thrush ID signed off, gave stop date for fluconazole. Endocrine: Hyperglycemia of Critical Illness Diabetes - off Insulin drip - Levemir BID on hold, not clinically indicated at this time - On low-dose insulin sliding scale with bedside glucose every 6 hours, not requiring coverage. - Prednisone 10mg po daily since 01/13, weaned to 5mg po daily. Previously was on prednisone as an outpatient. Has been on hydrocortisone intermittently when he has gone to the OR or decompensated. MSK: -Daily functional maintenance of extremities x 4 -US LUE 01/22- negative for DVT -Multi-Podis soft boots prevent foot drop -PT eval and treat -OOB to recliner chair daily , currently tolerating 2 hours Prophylaxis: GI Prophylaxis: -- Protonix IV BID DVT Prophylaxis: - SCDs Heparin SQ 5000 u subcut discontinued 01/23, after 1 dose due to bleeding at trach . No chemical DVT Prophylaxis, OOB to chair and daily functional maintenance of extremities x 4 ACCESS: --PIV x 2. PT/OT. OOB to stretcher chair. Discuss [employer] at bedside. Level 2 Problem Qualifiers (1) Respiratory failure: Qualified Code: J96.00 - Acute respiratory failure, unspecified whether with hypoxia or hypercapnia (2) Altered mental status: Qualified Code: R41.0 - Delirium (3) Sepsis: Qualified Code: A41.9 - Sepsis, due to unspecified organism Audra Mcintosh MD Feb 02, 2016 15:03
[2016-02-02] MEDS: LABETALOL HCL 100 MG/20 ML VIAL IV PRN (16:38)
[2016-02-02] MEDS: REMOVE OLD PATCH TD SCH ×2 (17:00)
[2016-02-02] MEDS: fentaNYL 100 MCG/HR PATCH TD SCH (17:07)
[2016-02-02] MEDS: fentaNYL 25 MCG/HR PATCH TD SCH (17:07)
[2016-02-02] MEDS: ACETAMINOPHEN 650 MG/20.3 ML UDC TUBE PRN (17:08)
[2016-02-03] VITALS (17 sets, daily range): BP systolic 124–149; BP diastolic 59–80; PULSE 92–110; RESP 18–24; TEMP 98.9–100.9; O2SAT 93–100
[2016-02-03] MEDS: oxyCODONE HCL ORAL CONC 20 MG/ML SYRINGE PO SCH ×6 (00:49→20:26)
[2016-02-03] MEDS: FREE WATER G-TUBE SCH ×3 (00:49→16:00)
[2016-02-03] MEDS: METOPROLOL TARTRATE 25 MG TAB TUBE SCH ×4 (00:50→18:12)
[2016-02-03] MEDS: CHLORHEXIDINE GLUCONATE 2 % 1 PACK (2 CLOTHS) TOP SCH (04:00)
[2016-02-03 05:03] LABS: AUTOMATED NEUTROPHIL # 7.9 TH/MM3 (1.8-7.7); BASOPHIL # 0.2 TH/MM3 (0-0.2); BASOPHIL % 1.5 % (0.0-2.0); EOSINOPHIL # 0.2 TH/MM3 (0-0.4); EOSINOPHIL % 1.2 % (0.0-4.0); HEMATOCRIT 29.2 % (39.0-51.0); LYMPH % 17.2 % (9.0-44.0); LYMPHOCYTE # 2.3 TH/MM3 (1.0-4.8); MEAN CELL VOLUME 92.9 FL (80.0-100.0); MEAN CORPUSCULAR HEMOGLOBIN 30.1 PG (27.0-34.0); MEAN CORPUSCULAR HGB CONC 32.4 % (32.0-36.0); MONO % 20.7 % (0.0-8.0); NEUT % 59.4 % (16.0-70.0); PLATELET COUNT 398 TH/MM3 (150-450); RED BLOOD COUNT 3.15 MIL/MM3 (4.50-5.90); WHITE BLOOD COUNT 13.3 TH/MM3 (4.0-11.0)
[2016-02-03 05:19] LABS: HEMO FLAGS AUTO DIFF
[2016-02-03 05:23] LABS: BICARBONATE 31.4 MEQ/L (21.0-32.0); POTASSIUM 5.4 MEQ/L (3.5-5.1)
[2016-02-03] MEDS: PANTOPRAZOLE SODIUM 40 MG VIAL IV PUSH SCH ×2 (05:26→16:51)
[2016-02-03] MEDS: INSULIN ASPART SUPPLEMENTAL SCALE SQ SCH ×3 (05:43→10:41)
[2016-02-03] MEDS: CHLORHEXIDINE 0.12% (ORAL KIT) 15 ML CUP MT SCH ×2 (08:00→20:27)
[2016-02-03] MEDS: POVIDONE IODINE 10% OINT 30 GM TUBE TOPICAL SCH (09:00)
[2016-02-03] MEDS: NEOMYCIN/POLYMYXIN/BACITRACIN OINT 15 GM TUBE TOPICAL SCH ×2 (09:00→20:27)
[2016-02-03] MEDS: SILVER SULFADIAZINE 1% CR 400 GM JAR TOPICAL SCH (09:00)
[2016-02-03] MEDS: FLUCONAZOLE 200 MG TAB PO SCH (09:17)
[2016-02-03] MEDS: predniSONE 5 MG TAB NG SCH (09:17)
[2016-02-03] MEDS: TAMSULOSIN HCL 0.4 MG CAP PO SCH (09:18)
[2016-02-03] MEDS: FERROUS SULFATE 300 MG /5ML UDC TUBE SCH ×2 (09:19→20:27)
[2016-02-03] MEDS: NYSTATIN SUSP 500,000 U/5 ML CUP SWISH-SPIT SCH ×4 (09:19→20:26)
[2016-02-03] MEDS: MULTIVITAMINS LIQUID 5 ML UDC TUBE SCH (09:20)
[2016-02-03 09:45] LABS: BANDS 4 % (0-6); METAMYELOCYTES 2 % (0-1); MYELOCYTES 4 % (0-0); NEUTROPHIL # MANUAL DIFF 8.4 TH/MM3 (1.8-7.7); PLATELET ESTIMATE SMEAR NORMAL (NORMAL); PLATELET MORPHOLOGY NORMAL (NORMAL); POLYS (SEG NEUTROPHILS) 53 % (16-70); SCAN/DIFF FINAL DIFF MANUAL; WBC DIFF SAMPLE 100
[2016-02-03] MEDS: HYDROmorphone HCL PF 4 MG/ML VIAL IV PUSH PRN ×3 (10:43→22:00)
--- NOTE | 2016-02-03 12:07 | RADRPT ---
EXAM DATE/TIME: 02/03/2016 10:48 [facility] COMPARISON: CHEST SINGLE AP, January 27, 2016, 15:43. INDICATIONS : Shortness of breath. MEDICAL HISTORY : Hepatitis C. Cardiovascular disease. Hypertension. SURGICAL HISTORY : None. ENCOUNTER: Subsequent ACUITY: 2 weeks PAIN SCORE: 0/10 LOCATION: Bilateral chest FINDINGS: Single AP view of the chest. Tracheostomy tube remains in place. Persistent left lower lobe consolida tion versus atelectasis unchanged. The lungs are otherwise clear. Cardiomediastinal silhouette within normal limits. No evidence of pleural effusion or pneumothorax. CONCLUSION: No change in left lower lobe atelectasis versus consolidation. Aakash Frederick MD on February 03, 2016 at 12:04 Board Certified Radiologist. This report was verified electronically.
[2016-02-03] MEDS ORDERED: INSULIN HUMAN REGULAR 1,000 UNITS/10 ML VIAL IV PUSH ONE (13:15)
[2016-02-03] MEDS ORDERED: DEXTROSE 50% IN WATER 50 ML SYRINGE IV ONE ×2 (13:15→18:45)
--- NOTE | 2016-02-03 13:25 | HHI.CCPN ---
Subjective Remarks/Hospital Course 55-year-old male brought by EMS with altered mental status. He has been confused for 2 days but this morning has been the worst. He has history of chronic opiate medications including methadone and morphine that he takes for pain management and hence they gave him Narcan IV which brought the GCS up to 13. The blood glucose was 74. He has open wounds from his right upper and bilateral lower extremities. He has history of hepatitis C. Last week he was pealing and eating shrimps. Bedside blood sugar was 76 in the ER. He was tachycardic in 1 teens and was intubated in the ED for airway protection. Admitted to ICU with sepsis due to Staph Aureus hand infection and E. Coli bacteriemia. 12/05 Patient remains sedated with Fentanyl and intubated. On Levophed 3 mics, Vasopressin 0.03 mics and Bicarb drip. T:99.8 TF placed on hold OGT to LIWS last night - gastric drainage 525ml overnight. 12/06 Patient is sedated with Fentanyl and intubated, On Levophed 3 mics, off vasopressin. Gastric output 400ml in 24 hrs. KUB abdomen yesterday mildly distended colon otherwise non specific KUB. 12/07 Patient is off sedation remains intubated tolerated CPAP for most day yesterday. Afebrile. on no drips, tolerating tube feeds. 12/08 Patient went to OR yesterday for debridement and irrigation of right forearm and wound VAC placement. Given 2U PRBC and 2u PLT yesterday and currently receiving 1of 2 u additional PRBC. Hgb 7.7, PLT 43 this morning. Patient also started on pressors now on Levophed 10 mics. Vasopressin 0.04 mics. On no sedation. 12/09 Patient remains intubated off pressors, Afebrile. Tolerating tube feeds. Afebrile. 12/10 Patient is sedated with Fentanyl and intubated. Awake and follows commands off sedation. Afebrile. 12/11 Patient had ?SVT overnight given Lopressor 2.5mg IV x1, Remains intubated and sedated with Fentanyl. Afebrile. Tolerating TF. 12/12 Patient spoked fever last night with T: 101.5, sedated with Fentanyl and intubated. 12/13 Patient had an episode of desaturation overnight required increase FIO2/ PEE now on ACV with RR 14, TV 550, PEEP: 12, FIO2 60% with sats 100% CT chest performed overnight showed b/l consolidation and small pleural effusion. Had T: 100.0 last night. 12/14 Tolerating PS 15/CPAP 10 FiO2 40% with rSBI 38, weaning. . Awake and alert , following commands. Hypotensive overnight and levophed restarted up to 12 mcg/ min. Nurse has been weaning throughout the day. Suspected adrenal insufficiency as he was on prednisone as outpatient for gout and has not been on stress dose steroids. Given decadron. 12/15 Transfused 1 unit PRBC for Hgb 7.0 yesterday, 1 unit PRBC for Hgb 6.6 today and now Hgb 8.3. Does not clinically have e/o active GI bleeding and wound vac output nonbloody. Stool 1500 output, C diff negative. No abdominal pain. Remains Awake and alert, remained on CPAP 10/5 last night and is now tolerating CPAP 5/5. 12/16: Extubated yesterday tolerating well. Breathing comfortably. Able to follow commands. UO 1.8 L in 24 hours. Na slightly increased to 153. 12/17: Significantly worse this AM. WBC up to 28 from 16. Hgb 5.2 from 7.9. tachycardic. pale this AM. states he feels tired. Continues on BiPAP. Plan for debridement of his arms today. LIJ CVL does not have any signs of overt infection. 12/18: Blood cell count continues to rise today to 30 from 28. Required 1 unit of blood for hemoglobin of 6.6 which improved to 7.7 this morning. However, patient remains tachycardic in the 120s and significantly pale. CT abdomen and pelvis ordered and pending. Tachypneic with respiratory rate in the 30s. Only small amount of dark tarry stool yesterday with approximately 300 cc of stool output. C. difficile toxin negative 3. After discussion with infectious disease, restart vancomycin, cefepime, Flagyl, micafungin. Horn cultures are pending. Per discussion with GI, will not scope as endoscopy is high risk given his tenuous respiratory status this point. Slightly worse hypernatremia as well as worsening acute kidney injury this morning. 12/19: POD 1 s/p ex-lap, washout for perforated ascending colon with extended right hemicolectomy, primary ileocolic anastamosis, open abdomen, septic shock, acute hypoxic and hypercarbic respiratory failure. Significantly critically ill overnight: required 6L ivf resuscitation, 1 unit prbc, norepinephrine, vasopressin, stress dose hydrocortisone. This morning, remains on high-dose vasopressors. still has large volume ivf requirement. Significant SIRS response. Vent requirements increasing with all this volume resuscitation, PEEP up to 10. He remains critically ill, and although I do believe we have surgical source control, I anticipate he will continue to clinically decline before he starts to make improvements. 12/20: Off pressors. follows commands on sedation holiday. +11L over last 3 days during acute illness, +22L since admission. We are going to have to get some of this volume back before we are able to close him given his severe anasarca. 12/21: Taken back to the OR yesterday afternoon for washout and completion colectomy. Postoperatively was significantly under resuscitated as well as had ongoing active oozing. Patient was coagulopathy. The patient was in distributive and hemorrhagic shock. The patient was given multiple units of blood products overnight. Patient was thrombocytopenic, hypofibrinogenemic, coagulopathic. Given significant volume of blood product resuscitation: 24h blood products: 13 prbc 8 ffp 2 plt 1 10-pack cryo This morning continues to have significant amount of bright red output out of his BEV and wound VAC, approximately 500 cc an hour out of his wound VAC, and approximately 75 an mils every 10 minutes out of a BEV. I discussed with surgery and we will correct his coagulopathy and plan to go back to the OR for exploration early this afternoon. 12/22: Clinically starting to improve hemodynamically. off vasopressors. Net+ 26L. CVP rising to 14. UOP adequate. Hgb 7 this AM. 12/23 Seen postop. Hypertensive, BP improved with additional pain medicine. Remains net positive but urine output excellent 3L in 24 hours. Remains on Lasix gtt. went to OR today status post wound VAC change and partial closure 12/24: Fascia was closed yesterday. Wound Vac in place. Remains sedated. -2L negative balance, but with increasing BUN/creat. Discontinue Bumex infusion, start scheduled Bumex 2 mg IV every 12 with IV albumin. 12/25: Overnight became hypotensive requiring Levophed to be restarted. Hemoglobin dropped to 4.1. Noted to have bloody drainage from G-tube and dorsal ileostomy with black stool output 12/26: s/p EGD yesterday-2 gastric ulcers bleeding, stomach a significant part had decreased discoloration indicating probable ischemia. s/p epi injection and cauterization. Continues to have coffee ground G tube output, black tarry Ileostomy output. Hemoglobin down to 6.4 getting 2 units of PRBC. GI recent recommending intervention radiology consult. 12/27: For trach today. Meds ordered. Hgb decline consistent with recent transfusions and senescent cells. 12/28: Trach clean, dry. Start SBTs. Check prealbumin. Continue TPN. 12/29: Looks in direction of voice. I have not seen more purposeful reactions. Line > 12 days old, replace today. Prealbumin 20 - good response to TPN. 12/30: Remains vented, encephalopathic, puss like drainage from left hand, WBC increased 01/01: no significant changes. continues to remain critically ill with minimal improvements over the last week. abdomen closed. still total body volume overloaded. 01/02: more awake today than yesterday. continues to be critically ill with minimal improvements overall. need to look towards placement. -900 yesterday. 01/03: up in chair yesterday. tolerated short run of SBT 15/5/40%. net euvolemic. wbc downtrending. 01/04: wbc slightly uptrended 33 from 30, more acidotic on BMP (14 from 20). Also spiking fevers to 102.3 despite tylenol. continues on broad spectrum abx. yesterday's cxr had what may be a new LLL infiltrate. today, though, he is following commands and more awake and alert. 01/05: LLL pna clinically and based on bronch. CT c/a/p done last night without any significant intra-abdominal change. small left pleural effusion which appears simple in nature, and LLL consolidation. ID broadened abx. today , wbc downtrending. culture data pending. Hgb 7 this AM. 01/06: Underwent exploratory laparotomy last night with findings of bleeding gastric ulcer which was oversewn by Dr. Verdin abdomen left open with wound VAC in place. Received 3 units PRBCs overnight. Remains on Wesley-Synephrine drip this morning for hypotension. Remains sedated, on mechanical ventilation. 01/07: Remains sedated, on mechanical ventilation. For abdominal incision site closure today. Significant positive fluid balance over the last 2 days. Off pressors currently. Lasix to mobilize fluid. 01/08: Remains sedated, on mechanical ventilation via tracheostomy. Underwent abdominal incision site closure this morning. Remains off pressors. Anasarca noted. Blood cultures from 01/04 growing Nava parapsilosis. 01/09: Drowsy/sedated, arousable, on mechanical ventilation via tracheostomy. TPN started yesterday. To be started on J-tube feeds per discussion with surgery 01/10: Sedated, arousable, on mechanical ventilation via tracheostomy. Remains on TPN. J-tube feeds being started today. 01/11: Was on T piece yesterday and rested on C Pap overnight. On TPN. Advanced J-tube feeds to 20 cc an hour today. Attempt T piece as tolerated. 01/12: Awake, tracks with his eyes. On C Pap overnight. Tolerated T piece during daytime yesterday. 01/13: Awake and alert. Was on T piece all day yesterday and was placed back on C Pap at 1:45 AM this morning. Does not appear to be in any acute distress. Tolerating J-tube feeds at 20 cc per hour. 01/14: Drowsy, easily arousable. Was on T piece all day yesterday and rested on C Pap at night. Tolerating J-tube feeds at 40 cc an hour with goal of 60 cc per hour. On TPN which will be discontinued after current bag. BEV drain with cloudy drainage. 01/15 Was placed back on ACV yesterday around 9 am due to tachypnea and remained on ACV overnight. Now on CPAP 11/20 and tolerating. BEV in lower abdomen had purulent output yesterday but RN states looks better today. Tolerating tube feeds, stool in ostomy. Off TPN. Removing CVL. 01/16 Hgb 6.6 on CBC this morning, lab draw, repeat pending. Tachycardia persists but otherwise no hemodynamic change. The NGT output yesterday was bilious, today brown/slight coffee grounds but mostly clear. No blood from BEV' s.Has been tolerating jejunal tube feeds, placed on hold for now. Has been tolerating CPAP 10/5 with RSBI 10s. GI/General surgery updated. 01/17 Hemoglobin 8.0. EGD performed yesterday showing gastric ulcers with no active bleeding. Abdominal wound dressing change today. Plan to begin trickle feeds today per general surgery. 01/18 Hgb 7.3. Tolerating trickle feeds that were resumed per general surgery.Tolerated Tpiece 2 hours yesterday. On CPAP 8/5 overnight. Now on Tpiece about 1 hour and doing well. Will continue intermittent Tpiece trials throughout the day with rest on CPAP in between. Watching off abx; cefepime discontinued 01/16. Remains on fluconazole for candidemia. 01/19 Trach developed cuff leak overnight. I exchanged Trach at bedside this morning. Tolerated Tpiece 2 hours, now resting on CPAP 8/5. Doing 2 piece trials up to 2 hours as tolerated tid and then plan to start extending duration of Tpiece trials from there. Tolerating tube feeds. 01/20 Tmax 99.2. Continued Protonix twice a day, noted melena continues in ostomy bag. Patient's T piece trials extended to 4 hours today, maximum toleration. Repeat blood cultures 01/19 still pending, WBC count still elevated. Wound care to be consulted for clarification of all specific dressing changes noted new reddened skin breakdown area on sacrum ,and eschar noted several areas left upper extremity all skin margins of wound noted erythematous. institutional commodity analyst Mattie Yost in attendance of dressing change MELITAE, noted no change in left upper extremity appearance in the last 30 days per her assessment.Requested Plastic Surgery reassess LUE and wound care protocol.Patient continues to tolerate tube feeds no residual noted. 01/21 Tmax 99.0. Overnight the patient continued to have episodes of tachycardia , some heart rate 130, appear non-pain related,requiring PRN dosing of antihypertensive meds. Blood cultures returned this morning gram positive cocci. Plan for CT of the abdomen and pelvis 01/22 discussed with and per general surgery.. Discussion of wounds with Dr. Pedro, plastic surgery yesterday, plans for reevaluation by plastic surgery and definitive/ instructions regarding wound care plan for today, of focus left upper extremity. 01/22 Afebrile. Overnight , HR remains in the low 100s-120. Systolic blood pressure remained above 160 early a.m., despite increase in frequency of metoprolol. Plan for increase in dosage of metoprolol. The patient underwent CT of the abdomen and pelvis early this a.m. showing persistent 5 cm left upper quadrant subdiaphragmatic fluid collection. Surgery aware with plans of drainage per IR. Gastroenterology following, noted ostomy output color, melena resolved recommended resumption of anticoagulation prophylactically ,but will hold with plans of IR drainage of fluid collection, per general surgery at this time. 01/23 Tmax 97.7. Overnight no acute issues, one episode of elevated blood pressure, received 1 dose of hydralazine 20 mg IV, with resolution. The patient has remained nothing by mouth for tentative IR drainage of left upper quadrant fluid collection. Imaging studies reevaluated by radiologist, noted no fluid collection is observed in the left upper quadrant. Tentative scheduling of IR drainage canceled. Tube feeds resumed and DVT prophylaxis, heparin resumed. Albumin level 1.1, Beneprotein added to diet twice a day, tolerated, will increase to QID. 01/24 Overnight the patient was noted to have small amount of bleeding around trach site, surgeon was notified and gel foam was applied. Of note the patient' s SQ heparin prophylaxis was resumed and he had received 1 dose at 2100. Heparin DVT prophylaxis was discontinued, chest x-ray was performed, which was was basically unremarkable with the exception of left lower lobe atelectasis. Yesterday the patient was placed out of bed in recliner chair and remained out of bed for 3 hours. 01/25 No bleeding noted around trach site overnight. Subcutaneous heparin continues to be on hold. The patient to T piece trial was advanced to 5 hours yesterday, patient was only able to maintain 4.5 hours before tiring out. We' ll continue to attempt Tpiece trials to 5 hours. The patient's Beneprotein has been advanced to 4 times a day. The patient is out of bed to chair 2 hours each day, utilizing PT for functional maintenance of extremities 4 daily. Minimal drainage from BEV . 01/26 Reportedly was on Tpiece yesterday about 5 hours. Then got out of bed to stretcher chair for a couple of hours and then after went back to bed was tachypneic despite CPAP and was on ACV overnight until about noon today when placed back on CPAP 12/5 which he is currently tolerating well. Transfused 1 unit PRBC this morning for Hgb 6.7 that was symptomatic with heart rate 120s. Now heart rate 101. Tolerating tube feeds. 01/27: persistently anemic despite transfusions. otherwise subjectively feels much better today. cpap trials. getting 1 unit prbc today. 01/28: 1 unit prbc yesterday for hgb 6.8, recheck 7 and stable 7 this AM. dressings taken down and upper arms where skin tears are, there is small amount of oozing dark blood. likely the source of his anemia is combination blood loss from chronic oozing like this as well as long-term phlebotomy. 01/29: hgb 6.6 this morning. wounds still oozing blood, no signs of active bleeding. discussed with ID, plan for 4 weeks fluconazole, but will likely change to PO. left arm piv with superficial thrombophlebitis overnight, removed. iv access is very difficult. his left arm this morning is edematous- he is not on anticoagulation. 01/30: hgb improved after 1 unit prbc yesterday. also tolerating SBTs better today. let arm ultrasound negative for DVT. 01/31: tolerated CPAP well yesterday. T-piece trials today. Hgb stable. Subjective: 02/01: Currently tolerating T piece. Hemoglobin is 7.1, I have ordered 1 unit of PRBC. Recheck in a.m. 02/02: Slightly more tachypneic, currently on pressure support. Low-grade fever 100.9. Slight increase in white count. Pancultured. Start Azactam until cultures are back Objective Vital Signs Date Time Temp Pulse Resp B/P Pulse Ox O2 Delivery O2 Flow Rate FiO2 02/03/16 11:12 96 40 02/03/16 11:01 Ventilator 02/03/16 06:00 92 02/03/16 04:00 99.9 22 136/71 02/01/16 13:45 6.00 Intake and Output 02/02/16 02/02/16 02/02/16 07:59 15:59 23:59 Intake Total 812 ml 862 ml 990 ml Output Total 750 ml 550 ml 650 ml Balance 62 ml 312 ml 340 ml Result Diagram: 02/03/16 0445 12/18/16 0445 Imaging Last Impressions Chest X-Ray 01/24/16 0000 Signed Impressions: Service Date/Time: January 23:12 - CONCLUSION: 1. Left lower lobe atelectasis versus pneumonia. There has been no significant change when compared to the prior exam. Tracheostomy tube is in expected position Ramone Hall MD Abdomen/Pelvis CT 01/23/16 0800 Signed Impressions: Service Date/Time: Saturday, January 23, 2016 09:05 - CONCLUSION: Relative to the prior study the marked distention of the stomach is reduced. There is a persistent 5 cm left upper quadrant sub-diaphragmatic fluid collection and drain in the left upper quadrant. Patient is post splenectomy. Jejunostomy is in place and ostomy is noted in the right lower abdomen. No free fluid or free air is appreciated and there is no evidence of obstruction. Bilateral pleural effusions persists small but slightly larger on the right with left lower lobe consolidation. Jared Medina MD ADDENDUM: I have reviewed the images with respect to her request made for left subdiaphragmatic drainage of a fluid collection. No fluid collection is observed within the left upper quadrant. There is residual splenic tissue that measures 5 cm in diameter with Hounsfield units 62. The stomach fundus extends up into the subdiaphragmatic location. No subdiaphragmatic fluid collection is observed. Surgical drains are noted. Osmar Chavez Jr., MD Upper Extremity Ultrasound 01/23/16 0600 Signed Impressions: Service Date/Time: Saturday, January 23, 2016 11:29 - CONCLUSION: Normal examination. No evidence DVT Jared Medina MD Chest CT 01/05/16 0000 Signed Impressions: Service Date/Time: Tuesday, January 05, 2016 23:15 - CONCLUSION: 1. Persistent left lower lobar consolidation. Improved consolidative infiltrates in the right lower lung. 2. Interval increase size bilateral pleural effusions , left greater than right. Osmar Alegria MD Celiac/Hepatic Arteriogram 12/27/15 0000 Signed Impressions: Service Date/Time: December 13:41 - CONCLUSION: 1. No active GI bleed identified. Robert Mckinney MD Abdomen X-Ray 12/18/15 0000 Signed Impressions: Service Date/Time: Friday, December 18, 2015 16:05 - CONCLUSION: Feeding tube tip is at the gastric antrum. Arnaldo Elias MD Head CT 12/02/15 1013 Signed Impressions: Service Date/Time: Wednesday, December 02, 2015 11:00 - CONCLUSION: 1. No intracranial abnormality is seen. 2. Air-fluid level in the right maxillary sinus. Arnaldo Reyes MD Last Impressions Abdomen/Pelvis CT 01/23/16 0800 Signed Impressions: Service Date/Time: Saturday, January 23, 2016 09:05 - CONCLUSION: Relative to the prior study the marked distention of the stomach is reduced. There is a persistent 5 cm left upper quadrant sub-diaphragmatic fluid collection and drain in the left upper quadrant. Patient is post splenectomy. Jejunostomy is in place and ostomy is noted in the right lower abdomen. No free fluid or free air is appreciated and there is no evidence of obstruction. Bilateral pleural effusions persists small but slightly larger on the right with left lower lobe consolidation. Jared Medina MD ADDENDUM: I have reviewed the images with respect to her request made for left subdiaphragmatic drainage of a fluid collection. No fluid collection is observed within the left upper quadrant. There is residual splenic tissue that measures 5 cm in diameter with Hounsfield units 62. The stomach fundus extends up into the subdiaphragmatic location. No subdiaphragmatic fluid collection is observed. Surgical drains are noted. Osmar Chavez Jr., MD Upper Extremity Ultrasound 01/23/16 0600 Signed Impressions: Service Date/Time: Saturday, January 23, 2016 11:29 - CONCLUSION: Normal examination. No evidence DVT Jared Medina MD Chest X-Ray 01/21/16 0600 Signed Impressions: Service Date/Time: Thursday, January 21, 2016 05:12 - CONCLUSION: 1. Cardiomegaly and left retrocardiac/basilar density. 2. Slight interstitial prominence. Wojciech Lockhart MD Chest CT 01/05/16 0000 Signed Impressions: Service Date/Time: Tuesday, January 05, 2016 23:15 - CONCLUSION: 1. Persistent left lower lobar consolidation. Improved consolidative infiltrates in the right lower lung. 2. Interval increase size bilateral pleural effusions , left greater than right. Osmar Alegria MD Celiac/Hepatic Arteriogram 12/27/15 0000 Signed Impressions: Service Date/Time: December 13:41 - CONCLUSION: 1. No active GI bleed identified. Robert Mckinney MD Abdomen X-Ray 12/18/15 0000 Signed Impressions: Service Date/Time: Friday, December 18, 2015 16:05 - CONCLUSION: Feeding tube tip is at the gastric antrum. Arnaldo Elias MD Head CT 12/02/15 1013 Signed Impressions: Service Date/Time: Wednesday, December 02, 2015 11:00 - CONCLUSION: 1. No intracranial abnormality is seen. 2. Air-fluid level in the right maxillary sinus. Arnaldo Reyes MD Last Impressions Abdomen/Pelvis CT 01/23/16 0800 Signed Impressions: Service Date/Time: Saturday, January 23, 2016 09:05 - CONCLUSION: Relative to the prior study the marked distention of the stomach is reduced. There is a persistent 5 cm left upper quadrant sub-diaphragmatic fluid collection and drain in the left upper quadrant. Patient is post splenectomy. Jejunostomy is in place and ostomy is noted in the right lower abdomen. No free fluid or free air is appreciated and there is no evidence of obstruction. Bilateral pleural effusions persists small but slightly larger on the right with left lower lobe consolidation. Jared Medina MD Upper Extremity Ultrasound 01/23/16 0600 Signed Impressions: Service Date/Time: Saturday, January 23, 2016 11:29 - CONCLUSION: Normal examination. No evidence DVT Jared Medina MD Chest X-Ray 01/21/16 0600 Signed Impressions: Service Date/Time: Thursday, January 21, 2016 05:12 - CONCLUSION: 1. Cardiomegaly and left retrocardiac/basilar density. 2. Slight interstitial prominence. Wojciech Lockhart MD Chest CT 01/05/16 0000 Signed Impressions: Service Date/Time: Tuesday, January 05, 2016 23:15 - CONCLUSION: 1. Persistent left lower lobar consolidation. Improved consolidative infiltrates in the right lower lung. 2. Interval increase size bilateral pleural effusions , left greater than right. Osmar Alegria MD Celiac/Hepatic Arteriogram 12/27/15 0000 Signed Impressions: Service Date/Time: December 13:41 - CONCLUSION: 1. No active GI bleed identified. Robert Mckinney MD Abdomen X-Ray 12/18/15 0000 Signed Impressions: Service Date/Time: Friday, December 18, 2015 16:05 - CONCLUSION: Feeding tube tip is at the gastric antrum. Arnaldo Elias MD Head CT 12/02/15 1013 Signed Impressions: Service Date/Time: Wednesday, December 02, 2015 11:00 - CONCLUSION: 1. No intracranial abnormality is seen. 2. Air-fluid level in the right maxillary sinus. Arnaldo Reyes MD Last 48 hours Impressions Chest X-Ray 01/07/16 0000 Signed Impressions: Service Date/Time: Thursday, January 07, 2016 04:23 - CONCLUSION: Worsening consolidation or atelectasis at the left mid and lower lung. Some degree of left effusion may also be contributing to this. Arnaldo Reyes MD Chest X-Ray 01/06/16 0000 Signed Impressions: Service Date/Time: Wednesday, January 06, 2016 19:46 - CONCLUSION: 1. Basilar airspace disease improved from January 04. Tracheostomy and right central line in satisfactory position. Nomi Falcon MD Abdomen/Pelvis CT 01/06/16 0000 Signed Impressions: Service Date/Time: Wednesday, January 06, 2016 22:07 - CONCLUSION: 1. Over the last day there is development of a large mass in the left upper quadrant measuring up to 18 x 13 cm which appears to be associated with the stomach. The mass is characterized by somewhat concentric areas of decreased and increased attenuation with multiple locules of air. Primary differential diagnosis is hemorrhage into the gastric wall with gastric pneumatosis and possibly gastric ischemia. Gastrostomy is again noted anteriorly. 2. Remainder the exam is relatively stable with drainage tube left upper quadrant, splenectomy, bilateral effusions, feeding jejunostomy and drain within the pelvis. There is also diffuse anasarca and nonobstructing renal calculi. Nomi Falcon MD Last Impressions Chest X-Ray 12/17/15 0600 Signed Impressions: Service Date/Time: Thursday, December 17, 2015 03:25 - CONCLUSION: Persistent left lower lobe consolidation. Osmar Alegria MD Chest CT 12/14/15 0000 Signed Impressions: Service Date/Time: Monday, December 14, 2015 06:12 - CONCLUSION: 1. Cardiomegaly with bilateral consolidation, likely CHF. Pneumonia cannot be excluded. 2. Small right pleural effusion. Wojciech Lockhart MD Abdomen X-Ray 12/06/15 0000 Signed Impressions: Service Date/Time: November 09:53 - CONCLUSION: Nonspecific KUB. Air is seen within a mildly distended colon but contrast is clearly seen in the rectum. Arnaldo Reyes MD Abdomen/Pelvis CT 12/04/15 0000 Signed Impressions: Service Date/Time: Friday, December 04, 2015 16:24 - CONCLUSION: 1. Mildly distended small bowel in the mid and lower abdomen. Contrast is clearly seen extending into the distal small bowel and ascending colon so a complete obstruction is not seen. A transition point is not seen. This pattern likely represents an ileus versus a partial obstruction. 2. Multiple nonobstructing renal stones. 3. Abnormal appearance of the spleen which appears to represent a splenule. It could be correlated if the patient has had either primary splenic removal or splenic injury and this is what is either left of the spleen or a developing splenule. This is likely of no significance. 4. Mild ascites. 5. Increased density within the gallbladder representing either tumefactive sludge or noncalcified stones. 6. Mild bilateral pleural effusions with prominent areas of lower lobe atelectasis or consolidation at the bases bilaterally. 7. Subacute to chronic bilateral rib fractures and multiple compression fractures in the lower thoracic and lumbar spine as described above. The patient does have a prior CT examination from 08/26/2014. All the compression deformities described above are new when compared to that scan. Arnaldo Reyes MD Head CT 12/02/15 1013 Signed Impressions: Service Date/Time: Wednesday, December 02, 2015 11:00 - CONCLUSION: 1. No intracranial abnormality is seen. 2. Air-fluid level in the right maxillary sinus. Arnaldo Reyes MD Objective Remarks Jevity 1.5 @ 60 mL per hour, Beneprotein QID GENERAL: Middle-aged chronically critically ill, lying in bed, on TP via trach. HEENT: NCAT. mucous membranes moist. NECK: [address], no active bleeding, no evidence of infection. RESPIRATORY: Tachypneic on CPAP. Breath sounds present bilaterally, diminished L base, clear without wheezing or rhonchi. CARDIOVASCULAR: Regular, tachycardic. Sinus tach on monitor. No murmurs rubs or gallops. GASTROINTESTINAL: J tube in place with tube feeds running . Gauze dressings in place inferior aspect of midline incision. Ostomy with brown colored stool. MUSCULOSKELETAL: Pitting edema 2+ bilateral feet and hands. No significant thigh edema. Multiple open wounds in the lower extremity with gauze dressing. NEURO: Awake and responsive. Opens eyes spontaneously, makes eye contact, nods to questioning and mouths words . Moves both feet to commands. 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 Status: Acute (3) Altered mental status ICD Code: R41.82 Status: Acute (4) Sepsis ICD Code: A41.9 Status: Acute Assessment and Plan Neuro: Acute encephalopathy secondary to sepsis improved. Acute post-surgical pain, Chronic pain ICU acquired weakness. -- fentanyl patch 125mcg/h q3d in view of ongoing significant Dilaudid IV requirement. - On oxycodone 20mg per tube q4h scheduled. Scheduled acetaminophen was discontinued 01/15 in view of prior h/o Hep C with hepatic fibrosis. - Dilaudid 2-4mg Iv q2h prn for breakthrough pain Respiratory Acute respiratory failure-extubated 12/16/15, reintubated for surgery 12/18 Acute hypoxic and hypercarbic respiratory failure improving Acute healthcare associated pneumonia- resolved NIGEL on home CPAP - Perc Tracheostomy 12/27 (Dr. Miller). Trach exchanged 8.0 Shiley with cuff on 01/19. - Vent bundle. Head of bed at 30 degrees. DuoNeb q6h and prn. - T-piece daily as tolerated - CT guided thoracentesis 01/27. - CXR 01/23 LLL atelectasis, resolution of pleural effusions - Continue fluid mobilization with lasix on PRN basis CV Hemorrhagic shock- resolved Septic Shock- resolved Volume overload Hypertension Tachycardia - Maintain MAP > 65 mmHg. - Cortisol level 14 on 12/14 - Stopped stress dose hydrocortisone on 01/12 and started prednisone 10 mg daily 01/13. down to 5mg daily on 01/28. plan to d/c on 02/04. - Echo 12/07 EF 65-70%, grade I diastolic dysfunction. - Metoprolol 75 q6h FENRenal: DEIRDRE (resolved) Hypernatremia Hypophosphatemia(resolved) Anasarca, third spacing. Severe hypoalbuminemia Hyperkalemia -Hyperkalemia -treat with IV Insulin and dextrose. repeat at 4PM -Hypernatremia-continue Free water flushes 200 q8. -Creatinine normalized. Urine eos negative. Off vancomycin. Avoiding nephrotoxins. -Monitor BMP- replete electrolytes per ICU protocol -Multivitamin q/day GI Acute GIB, hemorrhagic shock (resolved, now with recurrent anemia but not shock) Perforated right colon with colitis s/p ex-lap, extended right hemicolectomy with primary ileocolic anastamosis, washout, open abdomen (12/18) s/p Ex lap 01/05 for bleeding gastric ulcer Acute protein calorie malnutrition- severe Chronic hepatitis C s/p interferon/ribavirin years ago. Liver biopsy 04/14/08 Melena-resolved 01/22 Severe protein calorie malnutrition - EGD 12/26/15 showed 2 large gastric ulcers with active bleeding status post epinephrine infusion and cauterization - OR on 12/24 with Removal of VAC, washout, pancreatic drain and pelvic drain placement, gastrostomy, feeding jejunostomy and closure of abdomen with application of VAC device in the subcutaneous tissue. -To OR 01/05 with GI bleeding and hemorrhagic shock. Had bleeding gastric ulcer and pneumatosis of stomach. Underwent gastrotomy with ligation of gastric ulcer , lysis of adhesions, wound VAC placement -01/16 Endoscopy showed - ulcers at antrum and cardia without stigmata of bleeding and no exposed vessel. Granulation tissue at suture line without bleeding. Small ulceration there also without bleeding. Duodenum normal. -At low risk for UGI bleeding per GI, okay for anticoagulation from their point of view. Avoid NSAIDS/ASA. -NGT removed 01/16, to remain out per GI; Dr. Sanchez. Repeat EGD in 2 months ( Mar)per GI recs. -Prior TPN stopped 01/01. Again on TPN 01/08-01/14. -Continue Protonix 40 g IV q12h -Albumin 1.1- Beneprotein 1 packet increased to QID 01/25. -Prealbumin 14 on 01/26. Jevity goal rate to 65/hr based on nutritions most recent recommendations. Can repeat prealbumin in a week and if not improving, consider metabolic cart. Heme: Acute Anemia secondary to acute blood loss Thrombocytopenia Hypofibrinogenemia secondary to consumption and acute blood loss Coagulopathy secondary to consumption and acute blood loss --monitor CBC. Hgb is 7-8. Today hemoglobin is 7.1, transfuse 1 unit PRBC. Had EGD 01/16 in view of anemia but no evidence of bleeding. Melena resolved. No obvious active bleeding. Transfused 1 unit PRBC in am of 01/27. --Hep PLT ab negative on 12/03 - Ferrous Sulfate 300mg bid - LDH and haptoglobin only mildly elevated, likely not active hemolysis. - peripheral smear not consistent with microangiopathic hemolytic process. ID New fever probable sepsis Necrotizing Fascitis - MSSA on wound culture 12/07. Ecoli bacteremia 12/01 MSSA bacteremia 12/05. Cleared on f/u blood culture 12/07, 12/12. Candidemia (blood culture 01/04 with Nava parapsilosis) Sepsis of Intra-abdominal origin. C. difficile toxic megacolon (based on pathology C diff vs ischemia, C diff test negative) Bacteremia- gram positive cocci 01/21 --Pancultured today 02/03/16, start Azactam 1 g every 8 hours 02/03/16 --Debridement 12/01 p.m at bedside by Dr Pedro and Dr. Hartmann --R hand, forearm and olecranon bursa I and D and Wound vac 12/07 Dr Chavez. Nava parapsilosis in blood culture from 01/04 most likely from an intra- abdominal source(central line was changed on 01/04). Subsequent blood cultures have been negative for yeast. Seen by Dr. Wu 01/13 and no evidence of endogenous fungal endophthalmitis -- ABX per ID: Now on Fluconazole alone 01/09, convert to PO, total 4 week course. Previously: cefepime 12/17-01/16,flagyl IV 12/17-01/16 , Vancomycin 01/04-01/16 ( trough 20 on 01/15). Micafungin stopped per ID 01/08. Amphotericin B started by ID on 01/08 and stopped 01/09. CT abdomen 01/22 - 5 cm sub diaphragmatic fluid collection status post splenectomy. Initially there were plans for IR to drain however interventional radiologist reviewed images and states that there appears to be residual splenic tissue without drainable fluid collection. ID following, Dr. Becerra 01/23 blood culture -staph hemolyticus, felt to be contaminant. 01/22 noted oral thrush- Nystatin 5 ml QID (swish and spit) Wound care following for wounds- Wound vac discontinued 01/21 -Plastic Surgery requested for reassessment of LUE and skin care protocol for left arm 01/20, following recommendations --12/17 blood cultures: NGTD 12/17 central line culture: NGTD 12/17 urine cultures: NGTD 12/17 sputum cultures: NGTD C. difficile toxin 12/17: Negative (3rd negative toxin screen) -01/04 Blood culture with nava parapsilosis 01/04: horn culture, bronch with BAL, 01/04: CT chest/abd/pelvis without contrast: LLL consolidation, otherwise unchanged. 01/04: clinically LLL VAP. 01/08 Blood cultures: no growth 01/09 blood culture peripheral - NGTD 01/12 sputum cutlure - neg 01/12 - urine culture NGTD. 01/23- Bld culture-Staph hemolyticus 01/22- Oral Thrush ID signed off, gave stop date for fluconazole- reconsult if persistent fever Endocrine: Hyperglycemia of Critical Illness Diabetes - off Insulin drip - Levemir BID on hold, not clinically indicated at this time - On low-dose insulin sliding scale with bedside glucose every 6 hours, not requiring coverage -Will DC - Prednisone 10mg po daily since 01/13, weaned to 5mg po daily stop. Previously was on prednisone as an outpatient. Has been on hydrocortisone intermittently when he has gone to the OR or decompensated. MSK: -Daily functional maintenance of extremities x 4 -US LUE 01/22- negative for DVT -Multi-Podis soft boots prevent foot drop -PT eval and treat -OOB to recliner chair daily , currently tolerating 2 hours Prophylaxis: GI Prophylaxis: -- Protonix IV BID DVT Prophylaxis: - SCDs Heparin SQ 5000 u subcut discontinued 01/23, after 1 dose due to bleeding at trach . No chemical DVT Prophylaxis, OOB to chair and daily functional maintenance of extremities x 4 ACCESS: --PIV x 2. PT/OT. OOB to stretcher chair. Discuss [employer] at bedside. Level 3 Problem Qualifiers (1) Respiratory failure: Qualified Code: J96.00 - Acute respiratory failure, unspecified whether with hypoxia or hypercapnia (2) Altered mental status: Qualified Code: R41.0 - Delirium (3) Sepsis: Qualified Code: A41.9 - Sepsis, due to unspecified organism Audra Mcintosh MD Feb 03, 2016 13:24
[2016-02-03] MEDS: SODIUM CHLORIDE 0.9% FLUSH 5 ML FLUSH IVF PRN (13:28)
[2016-02-03] MEDS: AZTREONAM INJ 1,000 MG in SODIUM CHLORIDE 0.9% INJ 100 ML IV SCH ×3 (13:32→23:14)
[2016-02-03] MEDS ORDERED: SODIUM POLYSTYRENE SULFONATE SUSP 15 GM/60 ML CUP TUBE ONE (18:45)
[2016-02-03] MEDS ORDERED: INSULIN HUMAN REGULAR 1,000 UNITS/10 ML VIAL IVP ONE (18:45)
[2016-02-03] MEDS ORDERED: SODIUM BICARBONATE 8.4% INJ 50 MEQ/50 ML SYR IV ONE (18:45)
[2016-02-03] MEDS ORDERED: RESP: ALBUTEROL 2.5 MG/IPRATROPIUM 0.5 MG NEB (SCH) NEB ONE (19:00)
[2016-02-03] MEDS ORDERED: CALCIUM CHLORIDE INJ 2 GM in DEXTROSE 5% IN WATER 100ML INJ 100 ML IV ONE ×2 (19:00)
[2016-02-04] VITALS (19 sets, daily range): BP systolic 137–156; BP diastolic 68–80; PULSE 86–112; RESP 15–28; TEMP 98.8–99.4; O2SAT 92–100
[2016-02-04] MEDS: METOPROLOL TARTRATE 25 MG TAB TUBE SCH ×4 (00:34→18:00)
[2016-02-04] MEDS: oxyCODONE HCL ORAL CONC 20 MG/ML SYRINGE PO SCH ×6 (00:35→20:14)
[2016-02-04] MEDS: FREE WATER G-TUBE SCH ×3 (00:35→16:52)
[2016-02-04] MEDS: CHLORHEXIDINE GLUCONATE 2 % 1 PACK (2 CLOTHS) TOP SCH (01:53)
[2016-02-04 04:56] LABS: HEMATOCRIT 26.3 % (39.0-51.0); MEAN CELL VOLUME 94.1 FL (80.0-100.0); MEAN CORPUSCULAR HEMOGLOBIN 30.7 PG (27.0-34.0); MEAN CORPUSCULAR HGB CONC 32.6 % (32.0-36.0); PLATELET COUNT 391 TH/MM3 (150-450); RED BLOOD COUNT 2.79 MIL/MM3 (4.50-5.90); RED CELL DISTRIBUTION WIDTH 16.7 % (11.6-17.2); REVIEW FLAG FINAL; WHITE BLOOD COUNT 11.8 TH/MM3 (4.0-11.0)
[2016-02-04] MEDS: PANTOPRAZOLE SODIUM 40 MG VIAL IV PUSH SCH ×2 (05:00→18:00)
[2016-02-04] MEDS: AZTREONAM INJ 1,000 MG in SODIUM CHLORIDE 0.9% INJ 100 ML IV SCH ×3 (05:01→21:19)
[2016-02-04 05:15] LABS: BICARBONATE 35.4 MEQ/L (21.0-32.0); POTASSIUM 5.2 MEQ/L (3.5-5.1)
[2016-02-04] MEDS: CHLORHEXIDINE 0.12% (ORAL KIT) 15 ML CUP MT SCH ×2 (08:00→20:13)
[2016-02-04] MEDS: FLUCONAZOLE 200 MG TAB PO SCH (08:40)
[2016-02-04] MEDS: TAMSULOSIN HCL 0.4 MG CAP PO SCH (08:40)
[2016-02-04] MEDS: FERROUS SULFATE 300 MG /5ML UDC TUBE SCH ×2 (08:40→20:14)
[2016-02-04] MEDS: predniSONE 5 MG TAB NG SCH (08:40)
[2016-02-04] MEDS: MULTIVITAMINS LIQUID 5 ML UDC TUBE SCH (08:40)
[2016-02-04] MEDS: NYSTATIN SUSP 500,000 U/5 ML CUP SWISH-SPIT SCH ×4 (08:40→20:14)
[2016-02-04] MEDS: NEOMYCIN/POLYMYXIN/BACITRACIN OINT 15 GM TUBE TOPICAL SCH ×2 (08:43→20:14)
[2016-02-04] MEDS: SILVER SULFADIAZINE 1% CR 400 GM JAR TOPICAL SCH (08:43)
[2016-02-04] MEDS: POVIDONE IODINE 10% OINT 30 GM TUBE TOPICAL SCH (08:43)
--- NOTE | 2016-02-04 13:01 | HHI.CCPN ---
Subjective Remarks/Hospital Course 55-year-old male brought by EMS with altered mental status. He has been confused for 2 days but this morning has been the worst. He has history of chronic opiate medications including methadone and morphine that he takes for pain management and hence they gave him Narcan IV which brought the GCS up to 13. The blood glucose was 74. He has open wounds from his right upper and bilateral lower extremities. He has history of hepatitis C. Last week he was pealing and eating shrimps. Bedside blood sugar was 76 in the ER. He was tachycardic in 1 teens and was intubated in the ED for airway protection. Admitted to ICU with sepsis due to Staph Aureus hand infection and E. Coli bacteriemia. 12/05 Patient remains sedated with Fentanyl and intubated. On Levophed 3 mics, Vasopressin 0.03 mics and Bicarb drip. T:99.8 TF placed on hold OGT to LIWS last night - gastric drainage 525ml overnight. 12/06 Patient is sedated with Fentanyl and intubated, On Levophed 3 mics, off vasopressin. Gastric output 400ml in 24 hrs. KUB abdomen yesterday mildly distended colon otherwise non specific KUB. 12/07 Patient is off sedation remains intubated tolerated CPAP for most day yesterday. Afebrile. on no drips, tolerating tube feeds. 12/08 Patient went to OR yesterday for debridement and irrigation of right forearm and wound VAC placement. Given 2U PRBC and 2u PLT yesterday and currently receiving 1of 2 u additional PRBC. Hgb 7.7, PLT 43 this morning. Patient also started on pressors now on Levophed 10 mics. Vasopressin 0.04 mics. On no sedation. 12/09 Patient remains intubated off pressors, Afebrile. Tolerating tube feeds. Afebrile. 12/10 Patient is sedated with Fentanyl and intubated. Awake and follows commands off sedation. Afebrile. 12/11 Patient had ?SVT overnight given Lopressor 2.5mg IV x1, Remains intubated and sedated with Fentanyl. Afebrile. Tolerating TF. 12/12 Patient spoked fever last night with T: 101.5, sedated with Fentanyl and intubated. 12/13 Patient had an episode of desaturation overnight required increase FIO2/ PEE now on ACV with RR 14, TV 550, PEEP: 12, FIO2 60% with sats 100% CT chest performed overnight showed b/l consolidation and small pleural effusion. Had T: 100.0 last night. 12/14 Tolerating PS 15/CPAP 10 FiO2 40% with rSBI 38, weaning. . Awake and alert , following commands. Hypotensive overnight and levophed restarted up to 12 mcg/ min. Nurse has been weaning throughout the day. Suspected adrenal insufficiency as he was on prednisone as outpatient for gout and has not been on stress dose steroids. Given decadron. 12/15 Transfused 1 unit PRBC for Hgb 7.0 yesterday, 1 unit PRBC for Hgb 6.6 today and now Hgb 8.3. Does not clinically have e/o active GI bleeding and wound vac output nonbloody. Stool 1500 output, C diff negative. No abdominal pain. Remains Awake and alert, remained on CPAP 10/5 last night and is now tolerating CPAP 5/5. 12/16: Extubated yesterday tolerating well. Breathing comfortably. Able to follow commands. UO 1.8 L in 24 hours. Na slightly increased to 153. 12/17: Significantly worse this AM. WBC up to 28 from 16. Hgb 5.2 from 7.9. tachycardic. pale this AM. states he feels tired. Continues on BiPAP. Plan for debridement of his arms today. LIJ CVL does not have any signs of overt infection. 12/18: Blood cell count continues to rise today to 30 from 28. Required 1 unit of blood for hemoglobin of 6.6 which improved to 7.7 this morning. However, patient remains tachycardic in the 120s and significantly pale. CT abdomen and pelvis ordered and pending. Tachypneic with respiratory rate in the 30s. Only small amount of dark tarry stool yesterday with approximately 300 cc of stool output. C. difficile toxin negative 3. After discussion with infectious disease, restart vancomycin, cefepime, Flagyl, micafungin. Horn cultures are pending. Per discussion with GI, will not scope as endoscopy is high risk given his tenuous respiratory status this point. Slightly worse hypernatremia as well as worsening acute kidney injury this morning. 12/19: POD 1 s/p ex-lap, washout for perforated ascending colon with extended right hemicolectomy, primary ileocolic anastamosis, open abdomen, septic shock, acute hypoxic and hypercarbic respiratory failure. Significantly critically ill overnight: required 6L ivf resuscitation, 1 unit prbc, norepinephrine, vasopressin, stress dose hydrocortisone. This morning, remains on high-dose vasopressors. still has large volume ivf requirement. Significant SIRS response. Vent requirements increasing with all this volume resuscitation, PEEP up to 10. He remains critically ill, and although I do believe we have surgical source control, I anticipate he will continue to clinically decline before he starts to make improvements. 12/20: Off pressors. follows commands on sedation holiday. +11L over last 3 days during acute illness, +22L since admission. We are going to have to get some of this volume back before we are able to close him given his severe anasarca. 12/21: Taken back to the OR yesterday afternoon for washout and completion colectomy. Postoperatively was significantly under resuscitated as well as had ongoing active oozing. Patient was coagulopathy. The patient was in distributive and hemorrhagic shock. The patient was given multiple units of blood products overnight. Patient was thrombocytopenic, hypofibrinogenemic, coagulopathic. Given significant volume of blood product resuscitation: 24h blood products: 13 prbc 8 ffp 2 plt 1 10-pack cryo This morning continues to have significant amount of bright red output out of his BEV and wound VAC, approximately 500 cc an hour out of his wound VAC, and approximately 75 an mils every 10 minutes out of a BEV. I discussed with surgery and we will correct his coagulopathy and plan to go back to the OR for exploration early this afternoon. 12/22: Clinically starting to improve hemodynamically. off vasopressors. Net+ 26L. CVP rising to 14. UOP adequate. Hgb 7 this AM. 12/23 Seen postop. Hypertensive, BP improved with additional pain medicine. Remains net positive but urine output excellent 3L in 24 hours. Remains on Lasix gtt. went to OR today status post wound VAC change and partial closure 12/24: Fascia was closed yesterday. Wound Vac in place. Remains sedated. -2L negative balance, but with increasing BUN/creat. Discontinue Bumex infusion, start scheduled Bumex 2 mg IV every 12 with IV albumin. 12/25: Overnight became hypotensive requiring Levophed to be restarted. Hemoglobin dropped to 4.1. Noted to have bloody drainage from G-tube and dorsal ileostomy with black stool output 12/26: s/p EGD yesterday-2 gastric ulcers bleeding, stomach a significant part had decreased discoloration indicating probable ischemia. s/p epi injection and cauterization. Continues to have coffee ground G tube output, black tarry Ileostomy output. Hemoglobin down to 6.4 getting 2 units of PRBC. GI recent recommending intervention radiology consult. 12/27: For trach today. Meds ordered. Hgb decline consistent with recent transfusions and senescent cells. 12/28: Trach clean, dry. Start SBTs. Check prealbumin. Continue TPN. 12/29: Looks in direction of voice. I have not seen more purposeful reactions. Line > 12 days old, replace today. Prealbumin 20 - good response to TPN. 12/30: Remains vented, encephalopathic, puss like drainage from left hand, WBC increased 01/01: no significant changes. continues to remain critically ill with minimal improvements over the last week. abdomen closed. still total body volume overloaded. 01/02: more awake today than yesterday. continues to be critically ill with minimal improvements overall. need to look towards placement. -900 yesterday. 01/03: up in chair yesterday. tolerated short run of SBT 15/5/40%. net euvolemic. wbc downtrending. 01/04: wbc slightly uptrended 33 from 30, more acidotic on BMP (14 from 20). Also spiking fevers to 102.3 despite tylenol. continues on broad spectrum abx. yesterday's cxr had what may be a new LLL infiltrate. today, though, he is following commands and more awake and alert. 01/05: LLL pna clinically and based on bronch. CT c/a/p done last night without any significant intra-abdominal change. small left pleural effusion which appears simple in nature, and LLL consolidation. ID broadened abx. today , wbc downtrending. culture data pending. Hgb 7 this AM. 01/06: Underwent exploratory laparotomy last night with findings of bleeding gastric ulcer which was oversewn by Dr. Verdin abdomen left open with wound VAC in place. Received 3 units PRBCs overnight. Remains on Wesley-Synephrine drip this morning for hypotension. Remains sedated, on mechanical ventilation. 01/07: Remains sedated, on mechanical ventilation. For abdominal incision site closure today. Significant positive fluid balance over the last 2 days. Off pressors currently. Lasix to mobilize fluid. 01/08: Remains sedated, on mechanical ventilation via tracheostomy. Underwent abdominal incision site closure this morning. Remains off pressors. Anasarca noted. Blood cultures from 01/04 growing Nava parapsilosis. 01/09: Drowsy/sedated, arousable, on mechanical ventilation via tracheostomy. TPN started yesterday. To be started on J-tube feeds per discussion with surgery 01/10: Sedated, arousable, on mechanical ventilation via tracheostomy. Remains on TPN. J-tube feeds being started today. 01/11: Was on T piece yesterday and rested on C Pap overnight. On TPN. Advanced J-tube feeds to 20 cc an hour today. Attempt T piece as tolerated. 01/12: Awake, tracks with his eyes. On C Pap overnight. Tolerated T piece during daytime yesterday. 01/13: Awake and alert. Was on T piece all day yesterday and was placed back on C Pap at 1:45 AM this morning. Does not appear to be in any acute distress. Tolerating J-tube feeds at 20 cc per hour. 01/14: Drowsy, easily arousable. Was on T piece all day yesterday and rested on C Pap at night. Tolerating J-tube feeds at 40 cc an hour with goal of 60 cc per hour. On TPN which will be discontinued after current bag. BEV drain with cloudy drainage. 01/15 Was placed back on ACV yesterday around 9 am due to tachypnea and remained on ACV overnight. Now on CPAP 11/20 and tolerating. BEV in lower abdomen had purulent output yesterday but RN states looks better today. Tolerating tube feeds, stool in ostomy. Off TPN. Removing CVL. 01/16 Hgb 6.6 on CBC this morning, lab draw, repeat pending. Tachycardia persists but otherwise no hemodynamic change. The NGT output yesterday was bilious, today brown/slight coffee grounds but mostly clear. No blood from BEV' s.Has been tolerating jejunal tube feeds, placed on hold for now. Has been tolerating CPAP 10/5 with RSBI 10s. GI/General surgery updated. 01/17 Hemoglobin 8.0. EGD performed yesterday showing gastric ulcers with no active bleeding. Abdominal wound dressing change today. Plan to begin trickle feeds today per general surgery. 01/18 Hgb 7.3. Tolerating trickle feeds that were resumed per general surgery.Tolerated Tpiece 2 hours yesterday. On CPAP 8/5 overnight. Now on Tpiece about 1 hour and doing well. Will continue intermittent Tpiece trials throughout the day with rest on CPAP in between. Watching off abx; cefepime discontinued 01/16. Remains on fluconazole for candidemia. 01/19 Trach developed cuff leak overnight. I exchanged Trach at bedside this morning. Tolerated Tpiece 2 hours, now resting on CPAP 8/5. Doing 2 piece trials up to 2 hours as tolerated tid and then plan to start extending duration of Tpiece trials from there. Tolerating tube feeds. 01/20 Tmax 99.2. Continued Protonix twice a day, noted melena continues in ostomy bag. Patient's T piece trials extended to 4 hours today, maximum toleration. Repeat blood cultures 01/19 still pending, WBC count still elevated. Wound care to be consulted for clarification of all specific dressing changes noted new reddened skin breakdown area on sacrum ,and eschar noted several areas left upper extremity all skin margins of wound noted erythematous. compressor repairer Mattie Yost in attendance of dressing change MELITAE, noted no change in left upper extremity appearance in the last 30 days per her assessment.Requested Plastic Surgery reassess LUE and wound care protocol.Patient continues to tolerate tube feeds no residual noted. 01/21 Tmax 99.0. Overnight the patient continued to have episodes of tachycardia , some heart rate 130, appear non-pain related,requiring PRN dosing of antihypertensive meds. Blood cultures returned this morning gram positive cocci. Plan for CT of the abdomen and pelvis 01/22 discussed with and per general surgery.. Discussion of wounds with Dr. Pedro, plastic surgery yesterday, plans for reevaluation by plastic surgery and definitive/ instructions regarding wound care plan for today, of focus left upper extremity. Objective Vital Signs Date Time Temp Pulse Resp B/P Pulse Ox O2 Delivery O2 Flow Rate FiO2 02/04/16 12:00 97 02/04/16 12:00 99.1 28 143/72 93 02/04/16 12:00 40 02/04/16 07:15 Mechanical Ventilator 02/01/16 13:45 6.00 Intake and Output 02/03/16 02/03/16 02/04/16 08:00 16:00 00:00 Intake Total 700 ml 806 ml 930 ml Output Total 450 ml 560 ml 950 ml Balance 250 ml 246 ml -20 ml Result Diagram: 02/04/16 0358 02/04/16 0358 Imaging Last Impressions Chest X-Ray 01/24/16 0000 Signed Impressions: Service Date/Time: January 23:12 - CONCLUSION: 1. Left lower lobe atelectasis versus pneumonia. There has been no significant change when compared to the prior exam. Tracheostomy tube is in expected position Ramone Hall MD Abdomen/Pelvis CT 01/23/16 0800 Signed Impressions: Service Date/Time: Saturday, January 23, 2016 09:05 - CONCLUSION: Relative to the prior study the marked distention of the stomach is reduced. There is a persistent 5 cm left upper quadrant sub-diaphragmatic fluid collection and drain in the left upper quadrant. Patient is post splenectomy. Jejunostomy is in place and ostomy is noted in the right lower abdomen. No free fluid or free air is appreciated and there is no evidence of obstruction. Bilateral pleural effusions persists small but slightly larger on the right with left lower lobe consolidation. Jared Medina MD ADDENDUM: I have reviewed the images with respect to her request made for left subdiaphragmatic drainage of a fluid collection. No fluid collection is observed within the left upper quadrant. There is residual splenic tissue that measures 5 cm in diameter with Hounsfield units 62. The stomach fundus extends up into the subdiaphragmatic location. No subdiaphragmatic fluid collection is observed. Surgical drains are noted. Osmar Chavez Jr., MD Upper Extremity Ultrasound 01/23/16 0600 Signed Impressions: Service Date/Time: Saturday, January 23, 2016 11:29 - CONCLUSION: Normal examination. No evidence DVT Jared Medina MD Chest CT 01/05/16 0000 Signed Impressions: Service Date/Time: Tuesday, January 05, 2016 23:15 - CONCLUSION: 1. Persistent left lower lobar consolidation. Improved consolidative infiltrates in the right lower lung. 2. Interval increase size bilateral pleural effusions , left greater than right. Osmar Alegria MD Celiac/Hepatic Arteriogram 12/27/15 0000 Signed Impressions: Service Date/Time: December 13:41 - CONCLUSION: 1. No active GI bleed identified. Robert Mckinney MD Abdomen X-Ray 12/18/15 0000 Signed Impressions: Service Date/Time: Friday, December 18, 2015 16:05 - CONCLUSION: Feeding tube tip is at the gastric antrum. Arnaldo Elias MD Head CT 12/02/15 1013 Signed Impressions: Service Date/Time: Wednesday, December 02, 2015 11:00 - CONCLUSION: 1. No intracranial abnormality is seen. 2. Air-fluid level in the right maxillary sinus. Arnaldo Reyes MD Last Impressions Abdomen/Pelvis CT 01/23/16 0800 Signed Impressions: Service Date/Time: Saturday, January 23, 2016 09:05 - CONCLUSION: Relative to the prior study the marked distention of the stomach is reduced. There is a persistent 5 cm left upper quadrant sub-diaphragmatic fluid collection and drain in the left upper quadrant. Patient is post splenectomy. Jejunostomy is in place and ostomy is noted in the right lower abdomen. No free fluid or free air is appreciated and there is no evidence of obstruction. Bilateral pleural effusions persists small but slightly larger on the right with left lower lobe consolidation. Jared Medina MD ADDENDUM: I have reviewed the images with respect to her request made for left subdiaphragmatic drainage of a fluid collection. No fluid collection is observed within the left upper quadrant. There is residual splenic tissue that measures 5 cm in diameter with Hounsfield units 62. The stomach fundus extends up into the subdiaphragmatic location. No subdiaphragmatic fluid collection is observed. Surgical drains are noted. Osmar Chavez Jr., MD Upper Extremity Ultrasound 01/23/16 0600 Signed Impressions: Service Date/Time: Saturday, January 23, 2016 11:29 - CONCLUSION: Normal examination. No evidence DVT Jared Medina MD Chest X-Ray 01/21/16 0600 Signed Impressions: Service Date/Time: Thursday, January 21, 2016 05:12 - CONCLUSION: 1. Cardiomegaly and left retrocardiac/basilar density. 2. Slight interstitial prominence. Wojciech Lockhart MD Chest CT 01/05/16 0000 Signed Impressions: Service Date/Time: Tuesday, January 05, 2016 23:15 - CONCLUSION: 1. Persistent left lower lobar consolidation. Improved consolidative infiltrates in the right lower lung. 2. Interval increase size bilateral pleural effusions , left greater than right. Osmar Alegria MD Celiac/Hepatic Arteriogram 12/27/15 0000 Signed Impressions: Service Date/Time: December 13:41 - CONCLUSION: 1. No active GI bleed identified. Robert Mckinney MD Abdomen X-Ray 12/18/15 0000 Signed Impressions: Service Date/Time: Friday, December 18, 2015 16:05 - CONCLUSION: Feeding tube tip is at the gastric antrum. Arnaldo Elias MD Head CT 12/02/15 1013 Signed Impressions: Service Date/Time: Wednesday, December 02, 2015 11:00 - CONCLUSION: 1. No intracranial abnormality is seen. 2. Air-fluid level in the right maxillary sinus. Arnaldo Reyes MD Last Impressions Abdomen/Pelvis CT 01/23/16 0800 Signed Impressions: Service Date/Time: Saturday, January 23, 2016 09:05 - CONCLUSION: Relative to the prior study the marked distention of the stomach is reduced. There is a persistent 5 cm left upper quadrant sub-diaphragmatic fluid collection and drain in the left upper quadrant. Patient is post splenectomy. Jejunostomy is in place and ostomy is noted in the right lower abdomen. No free fluid or free air is appreciated and there is no evidence of obstruction. Bilateral pleural effusions persists small but slightly larger on the right with left lower lobe consolidation. Jared Medina MD Upper Extremity Ultrasound 01/23/16 0600 Signed Impressions: Service Date/Time: Saturday, January 23, 2016 11:29 - CONCLUSION: Normal examination. No evidence DVT Jared Medina MD Chest X-Ray 01/21/16 0600 Signed Impressions: Service Date/Time: Thursday, January 21, 2016 05:12 - CONCLUSION: 1. Cardiomegaly and left retrocardiac/basilar density. 2. Slight interstitial prominence. Wojciech Lockhart MD Chest CT 01/05/16 0000 Signed Impressions: Service Date/Time: Tuesday, January 05, 2016 23:15 - CONCLUSION: 1. Persistent left lower lobar consolidation. Improved consolidative infiltrates in the right lower lung. 2. Interval increase size bilateral pleural effusions , left greater than right. Osmar Alegria MD Celiac/Hepatic Arteriogram 12/27/15 0000 Signed Impressions: Service Date/Time: December 13:41 - CONCLUSION: 1. No active GI bleed identified. Robert Mckinney MD Abdomen X-Ray 12/18/15 0000 Signed Impressions: Service Date/Time: Friday, December 18, 2015 16:05 - CONCLUSION: Feeding tube tip is at the gastric antrum. Arnaldo Elias MD Head CT 12/02/15 1013 Signed Impressions: Service Date/Time: Wednesday, December 02, 2015 11:00 - CONCLUSION: 1. No intracranial abnormality is seen. 2. Air-fluid level in the right maxillary sinus. Arnaldo Reyes MD Last 48 hours Impressions Chest X-Ray 01/07/16 0000 Signed Impressions: Service Date/Time: Thursday, January 07, 2016 04:23 - CONCLUSION: Worsening consolidation or atelectasis at the left mid and lower lung. Some degree of left effusion may also be contributing to this. Arnaldo Reyes MD Chest X-Ray 01/06/16 0000 Signed Impressions: Service Date/Time: Wednesday, January 06, 2016 19:46 - CONCLUSION: 1. Basilar airspace disease improved from January 04. Tracheostomy and right central line in satisfactory position. Nomi Falcon MD Abdomen/Pelvis CT 01/06/16 0000 Signed Impressions: Service Date/Time: Wednesday, January 06, 2016 22:07 - CONCLUSION: 1. Over the last day there is development of a large mass in the left upper quadrant measuring up to 18 x 13 cm which appears to be associated with the stomach. The mass is characterized by somewhat concentric areas of decreased and increased attenuation with multiple locules of air. Primary differential diagnosis is hemorrhage into the gastric wall with gastric pneumatosis and possibly gastric ischemia. Gastrostomy is again noted anteriorly. 2. Remainder the exam is relatively stable with drainage tube left upper quadrant, splenectomy, bilateral effusions, feeding jejunostomy and drain within the pelvis. There is also diffuse anasarca and nonobstructing renal calculi. Nomi Falcon MD Last Impressions Chest X-Ray 12/17/15 0600 Signed Impressions: Service Date/Time: Thursday, December 17, 2015 03:25 - CONCLUSION: Persistent left lower lobe consolidation. Osmar Alegria MD Chest CT 12/14/15 0000 Signed Impressions: Service Date/Time: Monday, December 14, 2015 06:12 - CONCLUSION: 1. Cardiomegaly with bilateral consolidation, likely CHF. Pneumonia cannot be excluded. 2. Small right pleural effusion. Wojciech Lockhart MD Abdomen X-Ray 12/06/15 0000 Signed Impressions: Service Date/Time: November 09:53 - CONCLUSION: Nonspecific KUB. Air is seen within a mildly distended colon but contrast is clearly seen in the rectum. Arnaldo Reyes MD Abdomen/Pelvis CT 12/04/15 0000 Signed Impressions: Service Date/Time: Friday, December 04, 2015 16:24 - CONCLUSION: 1. Mildly distended small bowel in the mid and lower abdomen. Contrast is clearly seen extending into the distal small bowel and ascending colon so a complete obstruction is not seen. A transition point is not seen. This pattern likely represents an ileus versus a partial obstruction. 2. Multiple nonobstructing renal stones. 3. Abnormal appearance of the spleen which appears to represent a splenule. It could be correlated if the patient has had either primary splenic removal or splenic injury and this is what is either left of the spleen or a developing splenule. This is likely of no significance. 4. Mild ascites. 5. Increased density within the gallbladder representing either tumefactive sludge or noncalcified stones. 6. Mild bilateral pleural effusions with prominent areas of lower lobe atelectasis or consolidation at the bases bilaterally. 7. Subacute to chronic bilateral rib fractures and multiple compression fractures in the lower thoracic and lumbar spine as described above. The patient does have a prior CT examination from 08/26/2014. All the compression deformities described above are new when compared to that scan. Arnaldo Reyes MD Head CT 12/02/15 1013 Signed Impressions: Service Date/Time: Wednesday, December 02, 2015 11:00 - CONCLUSION: 1. No intracranial abnormality is seen. 2. Air-fluid level in the right maxillary sinus. Arnaldo Reyes MD Objective Remarks Jevity 1.5 @ 60 mL per hour, Beneprotein QID GENERAL: Middle-aged chronically critically ill, lying in bed, on TP via trach. HEENT: NCAT. mucous membranes moist. NECK: [address], no active bleeding, no evidence of infection. RESPIRATORY: Tachypneic on CPAP. Breath sounds present bilaterally, diminished L base, clear without wheezing or rhonchi. CARDIOVASCULAR: Regular, tachycardic. Sinus tach on monitor. No murmurs rubs or gallops. GASTROINTESTINAL: J tube in place with tube feeds running . Gauze dressings in place inferior aspect of midline incision. Ostomy with brown colored stool. MUSCULOSKELETAL: Pitting edema 2+ bilateral feet and hands. No significant thigh edema. Multiple open wounds in the lower extremity with gauze dressing. NEURO: Awake and responsive. Opens eyes spontaneously, makes eye contact, nods to questioning and mouths words . Moves both feet to commands. 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 Status: Acute (3) Altered mental status ICD Code: R41.82 Status: Acute (4) Sepsis ICD Code: A41.9 Status: Acute Assessment and Plan Neuro: Acute encephalopathy secondary to sepsis improved. Acute post-surgical pain, Chronic pain ICU acquired weakness. - fentanyl patch 125mcg/h q3d in view of ongoing significant Dilaudid IV requirement. - On oxycodone 20mg per tube q4h scheduled. - avoid acetaminophen in view of prior h/o Hep C with hepatic fibrosis. - Dilaudid 2-4mg Iv q2h prn for breakthrough pain Respiratory Acute respiratory failure-extubated 12/16/15, reintubated for surgery 12/18 Acute hypoxic and hypercarbic respiratory failure improving Acute healthcare associated pneumonia- resolved NIGEL on home CPAP - Perc Tracheostomy 12/27 (Dr. Miller). Trach exchanged 8.0 Shiley with cuff on 01/19. - Vent bundle. - continue Head of bed at 30 degrees. - DuoNeb q6h and prn. - T-piece daily as tolerated - doing well today - CT guided thoracentesis 01/27. - CXR 01/23 LLL atelectasis, resolution of pleural effusions - Continue fluid mobilization with lasix on PRN basis CV Hemorrhagic shock- resolved Septic Shock- resolved Volume overload Hypertension - resolved Tachycardia - Maintain MAP > 65 mmHg. - Cortisol level 14 on 12/14 - Stopped stress dose hydrocortisone on 01/12 and started prednisone 10 mg daily 01/13. - tapered down to 5mg daily on 01/28. - plan to d/c tomorrow. - Echo 12/07 EF 65-70%, grade I diastolic dysfunction. - Metoprolol 75 q6h FENRenal: DEIRDRE (resolved) Hypernatremia Hypophosphatemia(resolved) Anasarca, third spacing. Severe hypoalbuminemia Hyperkalemia - Hyperkalemia - borderline today - continue Kayexalate -Hypernatremia-continue Free water flushes 200 q8. -Creatinine normalized. Urine eos negative. Off vancomycin. Avoiding nephrotoxins. -Monitor BMP- replete electrolytes per ICU protocol -Multivitamin q/day GI Acute GIB, hemorrhagic shock (resolved, now with recurrent anemia but not shock) Perforated right colon with colitis s/p ex-lap, extended right hemicolectomy with primary ileocolic anastamosis, washout, open abdomen (12/18) s/p Ex lap 01/05 for bleeding gastric ulcer Acute protein calorie malnutrition- severe Chronic hepatitis C s/p interferon/ribavirin years ago. Liver biopsy 04/14/08 Melena-resolved 01/22 Severe protein calorie malnutrition - EGD 12/26/15 showed 2 large gastric ulcers with active bleeding status post epinephrine infusion and cauterization - OR on 12/24 with Removal of VAC, washout, pancreatic drain and pelvic drain placement, gastrostomy, feeding jejunostomy and closure of abdomen with application of VAC device in the subcutaneous tissue. -To OR 01/05 with GI bleeding and hemorrhagic shock. Had bleeding gastric ulcer and pneumatosis of stomach. Underwent gastrotomy with ligation of gastric ulcer , lysis of adhesions, wound VAC placement -01/16 Endoscopy showed - ulcers at antrum and cardia without stigmata of bleeding and no exposed vessel. Granulation tissue at suture line without bleeding. Small ulceration there also without bleeding. Duodenum normal. -At low risk for UGI bleeding per GI, okay for anticoagulation from their point of view. Avoid NSAIDS/ASA. -NGT removed 01/16, to remain out per GI; Dr. Sanchez. Repeat EGD in 2 months ( Mar)per GI recs. -Prior TPN stopped 01/01. Again on TPN 01/08-01/14. -Continue Protonix 40 g IV q12h -Albumin 1.1- Beneprotein 1 packet increased to QID 01/25. -Prealbumin 14 on 01/26. Jevity goal rate to 65/hr based on nutritions most recent recommendations. Can repeat prealbumin in a week and if not improving, consider metabolic cart. Heme: Acute Anemia secondary to acute blood loss Thrombocytopenia Hypofibrinogenemia secondary to consumption and acute blood loss Coagulopathy secondary to consumption and acute blood loss - Hgb is 8.2 Today - transfused 1 unit PRBC yesterday - Had EGD 01/16 in view of anemia but no evidence of bleeding. - Melena resolved. No obvious active bleeding. --Hep PLT ab negative on 12/03 - Ferrous Sulfate 300mg bid - LDH and haptoglobin only mildly elevated, likely not active hemolysis. - peripheral smear not consistent with microangiopathic hemolytic process. ID New fever probable sepsis Necrotizing Fascitis - MSSA on wound culture 12/07. Ecoli bacteremia 12/01 MSSA bacteremia 12/05. Cleared on f/u blood culture 12/07, 12/12. Candidemia (blood culture 01/04 with Nava parapsilosis) Sepsis of Intra-abdominal origin. C. difficile toxic megacolon (based on pathology C diff vs ischemia, C diff test negative) Bacteremia- gram positive cocci 01/21 --Pancultured today 02/03/16, start Azactam 1 g every 8 hours 02/03/16 --Debridement 12/01 p.m at bedside by Dr Pedro and Dr. Hartmann --R hand, forearm and olecranon bursa I and D and Wound vac 12/07 Dr Chavez. Nava parapsilosis in blood culture from 01/04 most likely from an intra- abdominal source(central line was changed on 01/04). Subsequent blood cultures have been negative for yeast. Seen by Dr. Wu 01/13 and no evidence of endogenous fungal endophthalmitis -- ABX per ID: Now on Fluconazole alone 01/09, convert to PO, total 4 week course. Previously: cefepime 12/17-01/16,flagyl IV 12/17-01/16 , Vancomycin 01/04-01/16 ( trough 20 on 01/15). Micafungin stopped per ID 01/08. Amphotericin B started by ID on 01/08 and stopped 01/09. CT abdomen 01/22 - 5 cm sub diaphragmatic fluid collection status post splenectomy. Initially there were plans for IR to drain however interventional radiologist reviewed images and states that there appears to be residual splenic tissue without drainable fluid collection. ID following, Dr. Becerra 01/23 blood culture -staph hemolyticus, felt to be contaminant. 01/22 noted oral thrush- Nystatin 5 ml QID (swish and spit) Wound care following for wounds- Wound vac discontinued 01/21 -Plastic Surgery requested for reassessment of LUE and skin care protocol for left arm 01/20, following recommendations --12/17 blood cultures: NGTD 12/17 central line culture: NGTD 12/17 urine cultures: NGTD 12/17 sputum cultures: NGTD C. difficile toxin 12/17: Negative (3rd negative toxin screen) -01/04 Blood culture with nava parapsilosis 01/04: horn culture, bronch with BAL, 01/04: CT chest/abd/pelvis without contrast: LLL consolidation, otherwise unchanged. 01/04: clinically LLL VAP. 01/08 Blood cultures: no growth 01/09 blood culture peripheral - NGTD 01/12 sputum cutlure - neg 01/12 - urine culture NGTD. 01/23- Bld culture-Staph hemolyticus 01/22- Oral Thrush ID signed off, gave stop date for fluconazole- reconsult if persistent fever Endocrine: Hyperglycemia of Critical Illness Diabetes - off Insulin drip - Levemir BID on hold, not clinically indicated at this time - On low-dose insulin sliding scale with bedside glucose every 6 hours, not requiring coverage -Will DC - Prednisone 10mg po daily since 01/13, weaned to 5mg po daily stop. Previously was on prednisone as an outpatient. Has been on hydrocortisone intermittently when he has gone to the OR or decompensated. MSK: -Daily functional maintenance of extremities x 4 -US LUE 01/22- negative for DVT -Multi-Podis soft boots prevent foot drop -PT eval and treat -OOB to recliner chair daily , currently tolerating 2 hours Prophylaxis: GI Prophylaxis: -- Protonix IV BID DVT Prophylaxis: - SCDs Heparin SQ 5000 u subcut discontinued 01/23, after 1 dose due to bleeding at trach . No chemical DVT Prophylaxis, OOB to chair and daily functional maintenance of extremities x 4 ACCESS: --PIV x 2. PT/OT. OOB to stretcher chair. Discuss LITERACY CONSULTANT at bedside. Level 3 Problem Qualifiers (1) Respiratory failure: Qualified Code: J96.00 - Acute respiratory failure, unspecified whether with hypoxia or hypercapnia (2) Altered mental status: Qualified Code: R41.0 - Delirium (3) Sepsis: Qualified Code: A41.9 - Sepsis, due to unspecified organism Chalino Mac MD Feb 04, 2016 13:01
--- NOTE | 2016-02-04 14:35 | HHI.HCPN ---
Reason for visit a. To assist with evaluation and management of symptoms including: pain, malnutrition, wounds b. To assist medical decision maker(s) with: better understanding of current medical conditions; weighing benefits/burdens of medical treatment options; making medical treatment decisions. . Subjective/Interval History Patient seen and assessed in room 1317. Also present patient's mother, Clemencia. Patient lying in bed, showing no signs of acute distress. Awake and alert. Smiling. Able to communicate by mouthing words. Tolerating T piece on examination this am. Intermittently tachycardic and tachypneic. Intermittent low grade fever. WBC trending downward at 11.8 ( previously 13.3on 02/03/16). Sputum, blood and urine cultures pending. Patient started on Azactam until cultures are back. Remains persistently anemic despite frequent transfusions. Last transfused on 02/02/16 with 1 unit of PRBC for hemoglobin of 7.1. Hgb today of 8.6. Plastic Surgery consulted for reassessment of LUE and skin care protocol for left arm 01/20. Wound care following for wounds- Wound vac discontinued 01/21. Tolerating Jevity 1.5 @ 65cc/hr via J-tube. 01/27/16: Total protein 5.0 and Albumin 1.4. Ostomy with brown colored stool. Patient has a history of chronic pain. Probable causes of plain include multiple surgeries, invasive lines, Sandoval, ostomy, NG tube, tracheostomy, immobility, wounds, bedbound status etc. On fentanyl patch 125mcg/h q3d and oxycodone 20mg per tube q4h scheduled. Scheduled acetaminophen was discontinued on 01/16/16 given h/o Hep C with hepatic fibrosis. Dilaudid 2-4mg Iv q2h PRN for breakthrough pain, being used sparingly. PRN Dilaudid 24 hour requirements: 4mg dose x 2 = 8mg. Patiently currently reporting pain in his back and BLE rated 6 out 10 and described as aching. Discussed current pain regime, encouraged patient to request PRN medications for breakthrough pain. . Family/friend interactions Spoke briefly to patient's mother at bedside, only providing general information per patient/family request. Message left for patient's on her voicemail. . Advance Directives Living Will: Never completed Health Care Surrogate: Never completed Durable Power of Senior Talent Management Consultant: Never completed Advance Directive Specifics Health Care Surrogate(s): There is no designated health care surrogate. Per [place] statutes, in the absence of written advanced directives healthcare proxy falls to the patient's , Clemencia Smith. . Documented care wishes: None available , Objective Vital Signs Date Time Temp Pulse Resp B/P Pulse Ox O2 Delivery O2 Flow Rate FiO2 02/04/16 12:00 97 02/04/16 12:00 99.1 96 28 143/72 93 02/04/16 12:00 40 02/04/16 10:00 103 02/04/16 08:20 100 40 02/04/16 08:00 40 02/04/16 08:00 92 02/04/16 08:00 99.1 93 19 143/68 99 02/04/16 07:15 95 Mechanical Ventilator 40 02/04/16 06:00 86 02/04/16 04:15 98 40 02/04/16 04:00 40 02/04/16 04:00 90 02/04/16 04:00 99.0 90 15 137/73 98 02/04/16 02:00 88 02/04/16 01:45 100 40 02/04/16 00:00 98.8 110 21 151/74 98 02/04/16 00:00 40 02/04/16 00:00 110 02/03/16 22:20 95 40 02/03/16 22:00 106 02/03/16 20:00 40 02/03/16 20:00 107 02/03/16 20:00 99 40 02/03/16 20:00 98.9 106 24 124/59 99 02/03/16 19:00 100 Mechanical Ventilator 40 02/03/16 18:00 104 02/03/16 16:00 104 02/03/16 16:00 40 02/03/16 16:00 99.0 104 23 146/76 95 02/03/16 14:00 100 Intake & Output 02/04/16 02/04/16 07:00 19:00 Intake Total 1475 ml Output Total 1225 ml Balance 250 ml IV Total 275 ml Tube Feeding 750 ml Other 450 ml Output Urine Total 475 ml Stool Total 750 ml . Physical Exam CONSTITUTIONAL/GENERAL: This is a frail chroncially ill middle-aged male patient on T piece via trach. TUBES/LINES/DRAINS: PIV 1, ostomy, trach, Sandoval, J tube SKIN: Ecchymoses on upper extremities, multiple skin tears. Wounds scabbed on knuckles of right hand. HEAD: Atraumatic. Normocephalic. EYES: No injection or drainage. Fundi not examined. ENT: Hearing appears normal. Nose without bleeding or purulent drainage. NECK: Trachea midline. Trach to T piece. CARDIOVASCULAR: Intermittently tachycardic. No murmurs, gallops, or rubs. No JVD. RESPIRATORY/CHEST: Intermittently tachypnea. Breath sounds diminished, left base. clear No wheezing or rhonchi GASTROINTESTINAL: BEV drains removed. Tolerating TF. Ostomy with brown colored stool. GENITOURINARY: Without palpable bladder distension. Sandoval catheter in place. MUSCULOSKELETAL: Extremities without clubbing or cyanosis. Atrophy. NEUROLOGICAL: Awake and alert. Mouthing words. Smiling PSYCHIATRIC: No anxiety or agitation observed. . Diagnostic Tests Laboratory Laboratory Tests Test 02/02/16 02/02/16 02/02/16 02/03/16 03:41 04:26 16:34 04:45 Sodium Level 148 MEQ/L 148 MEQ/L (136-145) (136-145) Potassium Level 4.8 MEQ/L 5.4 MEQ/L (3.5-5.1) (3.5-5.1) Chloride Level 110 MEQ/L 110 MEQ/L (98-107) (98-107) Carbon Dioxide Level 30.5 MEQ/L 31.4 MEQ/L (21.0-32.0) (21.0-32.0) Anion Gap 8 MEQ/L (5-15) 7 MEQ/L (5-15) Blood Urea Nitrogen 34 MG/DL (7-18) 39 MG/DL (7-18) Creatinine 0.75 MG/DL 0.83 MG/DL (0.60-1.30) (0.60-1.30) Estimat Glomerular Filtration 109 ML/MIN 97 ML/MIN (>89) Rate (>89) Random Glucose 121 MG/DL 124 MG/DL (74-106) (74-106) Calcium Level 8.2 MG/DL 8.3 MG/DL (8.5-10.1) (8.5-10.1) White Blood Count 12.1 TH/MM3 13.3 TH/MM3 (4.0-11.0) (4.0-11.0) Red Blood Count 2.38 MIL/MM3 3.15 MIL/MM3 (4.50-5.90) (4.50-5.90) Hemoglobin 7.1 GM/DL 9.5 GM/DL (13.0-17.0) (13.0-17.0) Hematocrit 22.1 % 29.2 % (39.0-51.0) (39.0-51.0) Mean Corpuscular Volume 92.8 FL 92.9 FL (80.0-100.0) (80.0-100.0) Mean Corpuscular Hemoglobin 30.0 PG 30.1 PG (27.0-34.0) (27.0-34.0) Mean Corpuscular Hemoglobin 32.3 % 32.4 % Concent (32.0-36.0) (32.0-36.0) Red Cell Distribution Width 17.3 % 17.0 % (11.6-17.2) (11.6-17.2) Platelet Count 354 TH/MM3 398 TH/MM3 (150-450) (150-450) Mean Platelet Volume 9.1 FL 9.5 FL (7.0-11.0) (7.0-11.0) Blood Type B POSITIVE Antibody Screen NEGATIVE Crossmatch Leukocyte-Reduced Red Blood Cells Blood Bank Comment Neutrophils (%) (Auto) 59.4 % (16.0-70.0) Lymphocytes (%) (Auto) 17.2 % (9.0-44.0) Monocytes (%) (Auto) 20.7 % (0.0-8.0) Eosinophils (%) (Auto) 1.2 % (0.0-4.0) Basophils (%) (Auto) 1.5 % (0.0-2.0) Neutrophils # (Auto) 7.9 TH/MM3 (1.8-7.7) Lymphocytes # (Auto) 2.3 TH/MM3 (1.0-4.8) Monocytes # (Auto) 2.8 TH/MM3 (0-0.9) Eosinophils # (Auto) 0.2 TH/MM3 (0-0.4) Basophils # (Auto) 0.2 TH/MM3 (0-0.2) CBC Comment AUTO DIFF Differential Total Cells 100 Counted Neutrophils % (Manual) 53 % (16-70) Band Neutrophils % 4 % (0-6) Lymphocytes % 15 % (9-44) Monocytes % 22 % (0-8) Neutrophils # (Manual) 8.4 TH/MM3 (1.8-7.7) Metamyelocytes 2 % (0-1) Myelocytes 4 % (0-0) Differential Comment FINAL DIFF MANUAL Platelet Estimate NORMAL (NORMAL) Platelet Morphology Comment NORMAL (NORMAL) Test 02/03/16 02/03/16 02/04/16 17:09 23:34 03:58 Potassium Level 5.8 MEQ/L 5.2 MEQ/L 5.2 MEQ/L (3.5-5.1) (3.5-5.1) (3.5-5.1) White Blood Count 11.8 TH/MM3 (4.0-11.0) Red Blood Count 2.79 MIL/MM3 (4.50-5.90) Hemoglobin 8.6 GM/DL (13.0-17.0) Hematocrit 26.3 % (39.0-51.0) Mean Corpuscular Volume 94.1 FL (80.0-100.0) Mean Corpuscular Hemoglobin 30.7 PG (27.0-34.0) Mean Corpuscular Hemoglobin 32.6 % Concent (32.0-36.0) Red Cell Distribution Width 16.7 % (11.6-17.2) Platelet Count 391 TH/MM3 (150-450) Mean Platelet Volume 9.4 FL (7.0-11.0) Sodium Level 148 MEQ/L (136-145) Chloride Level 108 MEQ/L (98-107) Carbon Dioxide Level 35.4 MEQ/L (21.0-32.0) Anion Gap 5 MEQ/L (5-15) Blood Urea Nitrogen 37 MG/DL (7-18) Creatinine 0.67 MG/DL (0.60-1.30) Estimat Glomerular Filtration 124 ML/MIN Rate (>89) Random Glucose 116 MG/DL (74-106) Calcium Level 9.6 MG/DL (8.5-10.1) . Result Diagram: 02/04/16 0358 02/04/16 0358 Microbiology Microbiology Date/Time Procedure Status Source Growth 02/03/16 13:45 Urine Culture Received Urine Catheterized Urine Pending 02/03/16 14:37 Aerobic Blood Culture - Preliminary Resulted Blood Peripheral NO GROWTH IN 1 DAY 02/03/16 14:37 Anaerobic Blood Culture - Preliminary Resulted Blood Peripheral NO GROWTH IN 1 DAY 02/03/16 14:42 Aerobic Blood Culture - Preliminary Resulted Blood Peripheral NO GROWTH IN 1 DAY 02/03/16 14:42 Anaerobic Blood Culture - Preliminary Resulted Blood Peripheral NO GROWTH IN 1 DAY 02/03/16 15:40 Gram Stain - Final Resulted Sputum Endotracheal 02/03/16 15:40 Sputum Culture Resulted Sputum Endotracheal Pending . Imaging Last 48 hours Impressions Chest X-Ray 02/03/16 0000 Signed Impressions: Service Date/Time: Wednesday, February 03, 2016 10:48 - CONCLUSION: No change in left lower lobe atelectasis versus consolidation. Aakash Frederick MD . Procedures 12/02/15: Intubated 12/02/15: NG tube placed 12/02/15: Right subclavian central line placed 12/14/15: Left IJ central line placement BEV PEG tube Ileostomy 12/28/15: Tracheostomy 12/30/15: Right subclavian central venous line placed 01/05/16: Right axillary arterial line placement 01/05/16: Right IJ central line placement 01/05/16: Bronchoscopy 01/17/16: EGD . . . 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 Probable causes of plain include multiple surgeries, invasive lines, Sandoval, ostomy, NG tube, tracheostomy , immobility, wounds, bedbound status etc. On fentanyl patch 125mcg/h q3d and oxycodone 20mg per tube q4h scheduled. Scheduled acetaminophen was discontinued on 01/16/16 given h/o Hep C with hepatic fibrosis. Dilaudid 2-4mg Iv q2h PRN for breakthrough pain, being used sparingly. PRN Dilaudid 24 hour requirements: 4mg dose x 2 = 8mg. No further recommendations at this time. . (2) Malnutrition 0-10 Scale: Unable to quantify Comment: Tolerating Jevity 1.5 @ 65cc/hr via J-tube. 01/27/16: Total protein 5.0 and Albumin 1.4. . (3) Wounds, multiple Comment: Dressings c/d/i. Plastic Surgery consulted for reassessment of LUE and skin care protocol for left arm 01/20. Wound care following for wounds- Wound vac discontinued 01/21. . Pertinent Non-Medical Issues Psychosocial:Patient was born in [facility], moving to [place] at a young age. He has 2 siblings who live locally (Feroz and Janeen). 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 The patient met his current (Clemencia Smith) through mutual friends and they have now been for approximately 20 years. The patient has 1 adult daughter (Kezia) from a previous relationship. She is 30 years old. Spiritual:No jain affiliation Legal: There is no designated health care surrogate. Per [place] statutes, in the absence of written advanced directives healthcare proxy falls to the patient 's , Clemencia Smith. Ethical issues impacting care: None at this time. . Important Contacts Clemencia Smith, spouse: [phone] Kezia Starks, daughter: [phone] . . Prognosis Patient is a 55 year old male with a long history of chronic illnesses. PMH is significant for Hep C, NIGEL, gout, RA, HTN, chronic pain, and migraines. Patient was admitted on 12/02/15 with sepsis due to Staph Aureus hand infection and E. Coli bacteriemia. Patient has been to the OR multiple times for GI bleed. Patient has had persistent anemia/thrombocytopenia requiring multiple transfusions. S/p tracheotomy, ileostomy, BEV 2, and G- tube, patient remains critically ill with an overall poor prognosis. . Code Status: Full Code Plan * FULL CODE * Decision-making: The patient is currently not capacitated to participate in decisions related to medical treatment goals. There is no designated health care surrogate. Per [place] statutes, in the absence of written advanced directives healthcare proxy falls to the patient's . HCP: CLEMENCIA SMITH ( ). * Goals: GOALS REMAIN AGGRESSIVE. However, patient's daughter and agree the patient would not want to be kept alive on machines. They do not feel he is at the point where they need to consider stopping care because he has "gotten through so much are ready". * Patient will require placement at a SNF for rehabilitation upon discharge. Patient is self pay.[facility] and [facility] applications were submitted 01/16/16. Discussed with case coordinator, Roberta. * Discussed with patient's nurse. * Symptom managementpain:Patient has a history of chronic pain. Probable causes of plain include multiple surgeries, invasive lines, Sandoval, ostomy, NG tube, tracheostomy, immobility, wounds, bedbound status etc. On fentanyl patch 125mcg/h q3d and oxycodone 20mg per tube q4h scheduled. Scheduled acetaminophen was discontinued on 01/16/16 given h/o Hep C with hepatic fibrosis. Dilaudid 2- 4mg Iv q2h PRN for breakthrough pain, being used sparingly. PRN Dilaudid 24 hour requirements: 4mg dose x 2 = 8mg. Patiently currently reporting pain in his back and BLE rated 6 out 10 and described as aching. Discussed current pain regime, encouraged patient to request PRN medications for breakthrough pain.Palliative care will monitor PRN requirements and make adjustments as indicated. No further recommendations at this time. * Symptom managementmalnutrition: Tolerating Jevity 1.5 @ 65cc/hr via J-tube. 01/27/16: Total protein 5.0 and Albumin 1.4. * Symptom managementwounds: Dressings c/d/i. Plastic Surgery consulted for reassessment of LUE and skin care protocol for left arm 01/20. Wound care following for wounds- Wound vac discontinued 01/21. * Spoke briefly to patient's mother at bedside, only providing general information per patient/family request. Message left for patient's on her voicemail. * Palliative care will continue to follow this patient throughout his hospitalization to establish trust, assist with symptom management and clarification of medical treatment goals. . Attestation To help prompt me to consider important information that might be impacting today's encounter and assessment, information from prior notes written by myself or my colleagues may have been "brought forward" into today's note. My signature on this note, however, is an attestation that I personally performed the exam, history, and/or decision-making noted today, and, unless otherwise indicated, the interactions with patient, family, and staff as well as the review of records all occurred today. I also attest that the listed assessment and stated plan reflect my best clinical judgment today based on the combination of historical information, prior notes, and today's exam/ interactions. When time spent is documented, it refers only to time spent today by the signer, or if indicated, combined time spent today by collaborating physician/nurse practitioner. . Leah Pop Feb 04, 2016 14:35
--- NOTE | 2016-02-04 16:53 | HHI.PR ---
Subjective Subjective Notes Resting in bed Daughter at bedside Objective Vitals/I&O Vital Signs Date Time Temp Pulse Resp B/P Pulse Ox O2 Delivery O2 Flow Rate FiO2 02/04/16 15:42 96 T-piece 50 02/04/16 14:00 93 02/04/16 12:00 99.1 28 143/72 02/01/16 13:45 6.00 Labs Laboratory Tests Test 02/03/16 02/03/16 02/04/16 17:09 23:34 03:58 Potassium Level 5.8 5.2 5.2 White Blood Count 11.8 Red Blood Count 2.79 Hemoglobin 8.6 Hematocrit 26.3 Mean Corpuscular Volume 94.1 Mean Corpuscular Hemoglobin 30.7 Mean Corpuscular Hemoglobin 32.6 Concent Red Cell Distribution Width 16.7 Platelet Count 391 Mean Platelet Volume 9.4 Sodium Level 148 Chloride Level 108 Carbon Dioxide Level 35.4 Anion Gap 5 Blood Urea Nitrogen 37 Creatinine 0.67 Estimat Glomerular Filtration 124 Rate Random Glucose 116 Calcium Level 9.6 Date/Time Procedure Status Source Growth 02/03/16 15:40 Gram Stain - Final Resulted Sputum Endotracheal 02/03/16 15:40 Sputum Culture - Preliminary Resulted Sputum Endotracheal IMMATURE GROWTH - REINCUBATE 02/03/16 14:42 Aerobic Blood Culture - Preliminary Resulted Blood Peripheral NO GROWTH IN 1 DAY 02/03/16 14:42 Anaerobic Blood Culture - Preliminary Resulted Blood Peripheral NO GROWTH IN 1 DAY 02/03/16 13:45 Urine Culture - Preliminary Resulted Urine Catheterized Urine NO GROWTH IN 24 HOURS. Radiology Last Impressions Chest X-Ray 12/28/15 0000 Signed Impressions: Service Date/Time: Monday, December 28, 2015 14:23 - CONCLUSION: Large left pleural effusion and left lung base consolidation. Freddy Connor MD Abdomen/Pelvis CT 12/19/15 0000 Signed Impressions: Service Date/Time: Saturday, December 19, 2015 10:57 - CONCLUSION: 1. Adjacent volume pneumoperitoneum is observed consistent with perforation of a hollow viscus. This is presumably colonic in origin due to the diffuse inflammatory process involving the colon. I do not clearly identify the source of the pneumoperitoneum however. There is mild dilatation of the small bowel likely an ileus in nature. A significant volume of ascitic fluid is noted. 2. Bibasilar atelectasis and bilateral pleural effusions. 3. Small pericardial effusion. 4. Small bilateral nonobstructing renal calculi. 5. I spoke with Dr. Sanchez concerning the findings. Osmar Chavez Jr., MD Abdomen X-Ray 12/18/15 0000 Signed Impressions: Service Date/Time: Friday, December 18, 2015 16:05 - CONCLUSION: Feeding tube tip is at the gastric antrum. Arnaldo Elias MD Chest CT 12/14/15 0000 Signed Impressions: Service Date/Time: Monday, December 14, 2015 06:12 - CONCLUSION: 1. Cardiomegaly with bilateral consolidation, likely CHF. Pneumonia cannot be excluded. 2. Small right pleural effusion. Wojciech Lockhart MD Head CT 12/02/15 1013 Signed Impressions: Service Date/Time: Wednesday, December 02, 2015 11:00 - CONCLUSION: 1. No intracranial abnormality is seen. 2. Air-fluid level in the right maxillary sinus. Arnaldo Reyes MD Cardiovascular: Regular Lungs: Clear Abdomen: Other (see below ) Narrative Exam RIGHT arm dressing in place Abd: Midline incision--- with packing; ileostomy with stool A/P Problem List: (1) Dependent on ventilator (2) Open wound of abdomen (3) Ileostomy in place (4) Jejunostomy tube present (5) S/P total colectomy (6) Acute colitis (7) Gastrostomy tube in place Assessment and Plan 55 year old male s/p ex lap; s/p colectomy; J tube placement and would vac change -Hmg stable -Tolerating TF via J tube -Hmg stable -Continue to closely monitor WBC -Continue Primapore dressing BID and PRN to midline incision ----continue packing to superior and inferior areas of incision -GS will see peripherally but please call with any questions Attending Statement patient seen at bedside continues to improve tolerating tf wound care with dressing changes Attestation The exam, history, and the medical decision-making described in the above note were completed with the assistance of the mid-level provider. I reviewed and agree with the findings presented. I attest that I had a [id number] encounter with the patient on the same day, and personally performed and documented my assessment and findings in the medical record. Problem Qualifiers (1) Open wound of abdomen: Qualified Code: S31.109D - Open wound of abdomen, subsequent encounter Lurdes Felix Feb 04, 2016 16:53 Bebo Verdin MD Feb 12, 2016 11:37
[2016-02-04] MEDS: HYDROmorphone HCL PF 4 MG/ML VIAL IV PUSH PRN (18:06)
--- NOTE | 2016-02-04 22:58 | HHI.IDPN ---
Subjective Subjective Remarks Delayed entry - pt was seen around 1300 today Noted low grade fever over the week end pt was restarted on abx and blood clx were sent pt remains on CPAP and tolerates Tpice trials he is on tube feedings at goal off pressors Antibiotics fluconazole azactam Lines RSC TLC Past Medical History RA HCV sp splenectomy Allergies: Coded Allergies: Compazine (Verified Allergy, Severe, VOMITING, RASH, 08/26/14) SLURRED SPEECH, MIGRAINES Demerol (Verified Allergy, Severe, VOMITING, 08/26/14) Levaquin (Verified Allergy, Severe, 08/26/14) Penicillin (Verified Allergy, Severe, Rash, 08/26/14) Phenergan (Verified Allergy, Severe, VOMITING, 08/26/14) Uncoded Allergies: ANTI-CONVULSIVES (Allergy, Severe, MIGRAINES, SLURRED SPEECH,, 01/23/14) Objective . Vital Signs Date Time Temp Pulse Resp B/P Pulse Ox O2 Delivery O2 Flow Rate FiO2 02/04/16 22:05 95 50 02/04/16 22:00 112 02/04/16 21:14 20 02/04/16 20:32 97 50 02/04/16 20:00 110 02/04/16 20:00 50 02/04/16 20:00 99.4 110 20 156/78 92 02/04/16 19:00 92 Mechanical Ventilator 50 02/04/16 18:00 110 02/04/16 16:00 102 02/04/16 16:00 98.8 102 24 137/80 94 02/04/16 15:42 96 T-piece 50 02/04/16 14:00 93 02/04/16 12:00 97 02/04/16 12:00 99.1 96 28 143/72 93 02/04/16 12:00 40 02/04/16 11:15 94 T-piece 50 02/04/16 10:00 103 02/04/16 08:20 100 40 02/04/16 08:00 40 02/04/16 08:00 92 02/04/16 08:00 99.1 93 19 143/68 99 02/04/16 07:15 95 Mechanical Ventilator 40 02/04/16 06:00 86 02/04/16 04:15 98 40 02/04/16 04:00 40 02/04/16 04:00 90 02/04/16 04:00 99.0 90 15 137/73 98 02/04/16 02:00 88 02/04/16 01:45 100 40 02/04/16 00:00 98.8 110 21 151/74 98 02/04/16 00:00 40 02/04/16 00:00 110 02/03/16 02/03/16 02/04/16 15:00 23:00 07:00 Intake Total 806 ml 930 ml 875 ml Output Total 560 ml 950 ml 275 ml Balance 246 ml -20 ml 600 ml IV Total 250 ml 125 ml Tube Feeding 576 ml 300 ml 450 ml Other 230 ml 380 ml 300 ml Output Urine Total 500 ml 350 ml 125 ml Stool Total 60 ml 600 ml 150 ml . Laboratory Tests Test 02/03/16 02/04/16 04:45 03:58 White Blood Count 13.3 TH/MM3 11.8 TH/MM3 Red Blood Count 3.15 MIL/MM3 2.79 MIL/MM3 Hemoglobin 9.5 GM/DL 8.6 GM/DL Hematocrit 29.2 % 26.3 % Mean Corpuscular Volume 92.9 FL 94.1 FL Mean Corpuscular Hemoglobin 30.1 PG 30.7 PG Mean Corpuscular Hemoglobin 32.4 % 32.6 % Concent Red Cell Distribution Width 17.0 % 16.7 % Platelet Count 398 TH/MM3 391 TH/MM3 Mean Platelet Volume 9.5 FL 9.4 FL Neutrophils (%) (Auto) 59.4 % Lymphocytes (%) (Auto) 17.2 % Monocytes (%) (Auto) 20.7 % Eosinophils (%) (Auto) 1.2 % Basophils (%) (Auto) 1.5 % Neutrophils # (Auto) 7.9 TH/MM3 Lymphocytes # (Auto) 2.3 TH/MM3 Monocytes # (Auto) 2.8 TH/MM3 Eosinophils # (Auto) 0.2 TH/MM3 Basophils # (Auto) 0.2 TH/MM3 CBC Comment AUTO DIFF Differential Total Cells 100 Counted Neutrophils % (Manual) 53 % Band Neutrophils % 4 % Lymphocytes % 15 % Monocytes % 22 % Neutrophils # (Manual) 8.4 TH/MM3 Metamyelocytes 2 % Myelocytes 4 % Differential Comment FINAL DIFF MANUAL Platelet Estimate NORMAL Platelet Morphology Comment NORMAL Laboratory Tests Test 02/03/16 02/03/16 02/03/1616 04:45 17:09 23:34 03:58 Sodium Level 148 MEQ/L 148 MEQ/L Potassium Level 5.4 MEQ/L 5.8 MEQ/L 5.2 MEQ/L 5.2 MEQ/L Chloride Level 110 MEQ/L 108 MEQ/L Carbon Dioxide Level 31.4 MEQ/L 35.4 MEQ/L Anion Gap 7 MEQ/L 5 MEQ/L Blood Urea Nitrogen 39 MG/DL 37 MG/DL Creatinine 0.83 MG/DL 0.67 MG/DL Estimat Glomerular Filtration 97 ML/MIN 124 ML/MIN Rate Random Glucose 124 MG/DL 116 MG/DL Calcium Level 8.3 MG/DL 9.6 MG/DL Microbiology Date/Time Procedure Status Source Growth 02/03/16 13:45 Urine Culture - Preliminary Resulted Urine Catheterized Urine NO GROWTH IN 24 HOURS. 02/03/16 14:37 Aerobic Blood Culture - Preliminary Resulted Blood Peripheral NO GROWTH IN 1 DAY 02/03/16 14:37 Anaerobic Blood Culture - Preliminary Resulted Blood Peripheral NO GROWTH IN 1 DAY 02/03/16 14:42 Aerobic Blood Culture - Preliminary Resulted Blood Peripheral NO GROWTH IN 1 DAY 02/03/16 14:42 Anaerobic Blood Culture - Preliminary Resulted Blood Peripheral NO GROWTH IN 1 DAY 02/03/16 15:40 Gram Stain - Final Resulted Sputum Endotracheal 02/03/16 15:40 Sputum Culture - Preliminary Resulted Sputum Endotracheal IMMATURE GROWTH - REINCUBATE Imaging Last Impressions Chest X-Ray 02/03/16 0000 Signed Impressions: Service Date/Time: Wednesday, February 03, 2016 10:48 - CONCLUSION: No change in left lower lobe atelectasis versus consolidation. Aakash Frederick MD Upper Extremity Ultrasound 01/30/16 0000 Signed Impressions: Service Date/Time: Saturday, January 30, 2016 11:18 - CONCLUSION: Limited exam without thrombus identified. Raudel Mckinney MD FACR Thoracentesis 01/28/16 0000 Signed Impressions: Service Date/Time: Thursday, January 28, 2016 12:54 - CONCLUSION: Uncomplicated CT-guided thoracentesis. Ramone Hall MD Abdomen/Pelvis CT 01/23/16 0800 Signed Impressions: Service Date/Time: Saturday, January 23, 2016 09:05 - CONCLUSION: Relative to the prior study the marked distention of the stomach is reduced. There is a persistent 5 cm left upper quadrant sub-diaphragmatic fluid collection and drain in the left upper quadrant. Patient is post splenectomy. Jejunostomy is in place and ostomy is noted in the right lower abdomen. No free fluid or free air is appreciated and there is no evidence of obstruction. Bilateral pleural effusions persists small but slightly larger on the right with left lower lobe consolidation. Jared Medina MD ADDENDUM: I have reviewed the images with respect to her request made for left subdiaphragmatic drainage of a fluid collection. No fluid collection is observed within the left upper quadrant. There is residual splenic tissue that measures 5 cm in diameter with Hounsfield units 62. The stomach fundus extends up into the subdiaphragmatic location. No subdiaphragmatic fluid collection is observed. Surgical drains are noted. Osmar Chavez Jr., MD Chest CT 01/05/16 0000 Signed Impressions: Service Date/Time: Tuesday, January 05, 2016 23:15 - CONCLUSION: 1. Persistent left lower lobar consolidation. Improved consolidative infiltrates in the right lower lung. 2. Interval increase size bilateral pleural effusions , left greater than right. Osmar Alegria MD Celiac/Hepatic Arteriogram 12/27/15 0000 Signed Impressions: Service Date/Time: December 13:41 - CONCLUSION: 1. No active GI bleed identified. Robert Mckinney MD Abdomen X-Ray 12/18/15 0000 Signed Impressions: Service Date/Time: Friday, December 18, 2015 16:05 - CONCLUSION: Feeding tube tip is at the gastric antrum. Arnaldo Elias MD Head CT 12/02/15 1013 Signed Impressions: Service Date/Time: Wednesday, December 02, 2015 11:00 - CONCLUSION: 1. No intracranial abnormality is seen. 2. Air-fluid level in the right maxillary sinus. Arnaldo Reyes MD Physical Exam GENERAL: On vent , awake fully alert SKIN: no jaundice. Most of pt's anasarca has resolved HEENT: no icterus, no nasal discharge Chemosis + NECK: Trach in place CARDIOVASCULAR: systolic murmur in base of heart RESPIRATORY/CHEST: very few rhonchi on auscultation.L side with crackes GASTROINTESTINAL: dressing in place Stoma with brown stool Incision packed large amoun of seros drainage JPs removed GENITOURINARY: Sandoval catheter in place with clear light yellow urine with sediment MUSCULOSKELETAL: Extremities no cyanosis, trace edema on BLE RUE with with VAC LUE with dressignin place NEUROLOGICAL: fully awake and alert , makes eye contact and follows commands communicates appropiately smiles LINES: NO evidence of infection Assessment & Plan Remarks Sepsis related to Cdiff and Intra abdominal peritonitis. - sp subtotal colectomy and ileostomy SP colon perfocation and intraperitoneal gross contamination - wound is not healing ? Cdiff Colitis Noted Cdiff PCR is negative3/3 ? Zinc preparation in perianal care could cause false negative test. Path c/o Cdiff Colitis. - repeat path favouring ischemia RUE severe nec fasc due to MSSA - skin grafting was planned, but cancelled - S/P I and D x 3 - clinically resolved Recurretn life threatening upper GI bleeding 2/2 bleeding ulcers Persistent leukocytosis - improving C. parapsilosa fungemia ? sourece intraabd vs (less likely) line - repeat BC negative - no fungal endophalmitis - Dr Parker help appreciated Low grade coag negative staph bacteremia, 1/4 bottles - probably contaminant; would not Rx at this point sp thoracocenthesis New fever: resolved PLAN: cont fluconazole thru 02/04 - change to po monitor WBC, temps cont azactam fu P blood and sutum clx Argelia Becerra MD Feb 04, 2016 22:58
[2016-02-05] VITALS (19 sets, daily range): BP systolic 127–144; BP diastolic 67–76; PULSE 89–126; RESP 15–23; TEMP 98.4–99.4; O2SAT 92–100
[2016-02-05] MEDS: FREE WATER G-TUBE SCH ×3 (00:01→17:00)
[2016-02-05] MEDS: oxyCODONE HCL ORAL CONC 20 MG/ML SYRINGE PO SCH ×6 (00:01→20:13)
[2016-02-05] MEDS: CHLORHEXIDINE GLUCONATE 2 % 1 PACK (2 CLOTHS) TOP SCH (03:23)
[2016-02-05 04:26] LABS: AUTOMATED NEUTROPHIL # 6.8 TH/MM3 (1.8-7.7); BASOPHIL # 0.1 TH/MM3 (0-0.2); BASOPHIL % 1.1 % (0.0-2.0); EOSINOPHIL # 0.3 TH/MM3 (0-0.4); EOSINOPHIL % 2.8 % (0.0-4.0); HEMATOCRIT 27.8 % (39.0-51.0); LYMPH % 18.5 % (9.0-44.0); LYMPHOCYTE # 2.1 TH/MM3 (1.0-4.8); MEAN CELL VOLUME 93.4 FL (80.0-100.0); MEAN CORPUSCULAR HEMOGLOBIN 30.5 PG (27.0-34.0); MEAN CORPUSCULAR HGB CONC 32.6 % (32.0-36.0); MONO % 18.5 % (0.0-8.0); NEUT % 59.1 % (16.0-70.0); PLATELET COUNT 429 TH/MM3 (150-450); RED BLOOD COUNT 2.98 MIL/MM3 (4.50-5.90); RED CELL DISTRIBUTION WIDTH 17.3 % (11.6-17.2); WHITE BLOOD COUNT 11.5 TH/MM3 (4.0-11.0)
[2016-02-05 04:31] LABS: HEMO FLAGS AUTO DIFF
[2016-02-05 04:53] LABS: ALT (GPT) 53 U/L (12-78); ANION GAP 6 MEQ/L (5-15); AST (GOT) 64 U/L (15-37); BICARBONATE 31.8 MEQ/L (21.0-32.0); BLOOD UREA NITROGEN 37 MG/DL (7-18); CHLORIDE 109 MEQ/L (98-107); GLOMERULAR FILTRATION RATE 129 ML/MIN (>89); MAGNESIUM 1.8 MG/DL (1.5-2.5); POTASSIUM 5.6 MEQ/L (3.5-5.1); SODIUM (NA) 147 MEQ/L (136-145)
[2016-02-05 04:56] LABS: ALKALINE PHOSPHATASE 704 U/L (45-117); TOTAL BILIRUBIN ADULT 0.5 MG/DL (0.2-1.0)
[2016-02-05] MEDS: AZTREONAM INJ 1,000 MG in SODIUM CHLORIDE 0.9% INJ 100 ML IV SCH ×3 (05:03→21:01)
[2016-02-05] MEDS: PANTOPRAZOLE SODIUM 40 MG VIAL IV PUSH SCH ×2 (05:03→18:53)
[2016-02-05] MEDS: METOPROLOL TARTRATE 25 MG TAB TUBE SCH ×4 (05:03→18:53)
--- NOTE | 2016-02-05 05:13 | RADRPT ---
EXAM DATE/TIME: 02/05/2016 04:11 [facility] COMPARISON: CHEST SINGLE AP, February 03, 2016, 10:48. INDICATIONS : Shortness of breath. MEDICAL HISTORY : Hepatitis C. Cardiovascular disease. Hypertension. SURGICAL HISTORY : None. ENCOUNTER: Subsequent ACUITY: 2 weeks PAIN SCORE: Non-responsive. LOCATION: Bilateral chest FINDINGS: Moderate effusion and consolidation developing left base. Trace consolidation and effusion on the rig ht, similar to before. No pneumothorax. Trach are again noted. CONCLUSION: Worsening/developing effusions and basilar consolidation, currently left worse than right. Arnaldo Elias MD on February 05, 2016 at 5:11 Board Certified Radiologist. This report was verified electronically.
[2016-02-05] MEDS: ONDANSETRON HCL 4 MG/2 ML VIAL IV PUSH PRN (05:44)
[2016-02-05 08:07] LABS: BANDS 6 % (0-6); BLASTS 1 % (0-0); CORRECTED NUCLEATED RBC 1 /100 WBC (0-0); EOSINOPHILS 2 % (0-4); METAMYELOCYTES 3 % (0-1); MYELOCYTES 2 % (0-0); NEUTROPHIL # MANUAL DIFF 7.8 TH/MM3 (1.8-7.7); PLATELET ESTIMATE SMEAR NORMAL (NORMAL); PLATELET MORPHOLOGY NORMAL (NORMAL); POLYS (SEG NEUTROPHILS) 56 % (16-70); PROMYELOCYTES 1 % (0-0); SCAN/DIFF FINAL DIFF MANUAL; WBC DIFF SAMPLE 100
[2016-02-05] MEDS: FERROUS SULFATE 300 MG /5ML UDC TUBE SCH ×2 (08:08→20:13)
[2016-02-05] MEDS: NYSTATIN SUSP 500,000 U/5 ML CUP SWISH-SPIT SCH ×4 (08:08→20:13)
[2016-02-05] MEDS: MULTIVITAMINS LIQUID 5 ML UDC TUBE SCH (08:08)
[2016-02-05] MEDS: predniSONE 5 MG TAB NG SCH (08:09)
[2016-02-05] MEDS: FLUCONAZOLE 200 MG TAB PO SCH (08:09)
[2016-02-05] MEDS: TAMSULOSIN HCL 0.4 MG CAP PO SCH (08:09)
[2016-02-05] MEDS: CHLORHEXIDINE 0.12% (ORAL KIT) 15 ML CUP MT SCH ×2 (08:59→19:57)
[2016-02-05] MEDS: POVIDONE IODINE 10% OINT 30 GM TUBE TOPICAL SCH (09:00)
[2016-02-05] MEDS: SILVER SULFADIAZINE 1% CR 400 GM JAR TOPICAL SCH (09:00)
[2016-02-05] MEDS: NEOMYCIN/POLYMYXIN/BACITRACIN OINT 15 GM TUBE TOPICAL SCH ×2 (09:00→20:13)
[2016-02-05] MEDS ORDERED: SORBITOL 70% SOLN 30 ML CUP PO SCH (13:00)
[2016-02-05] MEDS: SODIUM POLYSTYRENE SULFONATE SUSP 15 GM/60 ML CUP PO SCH (13:28)
--- NOTE | 2016-02-05 13:28 | HHI.CCPN ---
Subjective Remarks/Hospital Course 55-year-old male brought by EMS with altered mental status. He has history of chronic opiate medications including methadone and morphine that he takes for pain management and hence they gave him Narcan IV which brought the GCS up to 13. The blood glucose was 74. He has open wounds from his right upper and bilateral lower extremities. He has history of hepatitis C. Last week he was pealing and eating shrimps. Bedside blood sugar was 76 in the ER. He was tachycardic in 1 teens and was intubated in the ED for airway protection. Admitted to ICU with sepsis due to Staph Aureus hand infection and E. Coli bacteriemia. Hospital course complicated by perforated ascending colon with extended right hemicolectomy, primary ileocolic anastamosis, open abdomen, septic shock, acute hypoxic and hypercarbic respiratory failure 12/19. Taken back to the OR 12/20 afternoon for washout and completion colectomy. 12/25 Hemoglobin dropped to 4.1. Noted to have bloody drainage from G-tube and dorsal ileostomy with black stool output due to 2 gastric ulcers bleeding, stomach a significant part had decreased discoloration indicating probable ischemia. s/p epi injection and cauterization. 12/27Tracheostomy placed. 01/06: Underwent exploratory laparotomy with findings of bleeding gastric ulcer which was oversewn by Dr. Verdin abdomen left open with wound VAC in place. Objective Vital Signs Date Time Temp Pulse Resp B/P Pulse Ox O2 Delivery O2 Flow Rate FiO2 02/05/16 12:44 96 T-piece 50 02/05/16 10:00 100 02/05/16 06:07 20 02/05/16 04:00 99.2 136/71 02/01/16 13:45 6.00 Intake and Output 02/04/16 02/04/16 02/04/16 07:59 15:59 23:59 Intake Total 875 ml 1056 ml 779 ml Output Total 275 ml 1100 ml 500 ml Balance 600 ml -44 ml 279 ml Result Diagram: 02/05/16 0357 02/05/16 0357 Other Results Microbiology Date/Time Procedure Status Source Growth 02/03/16 13:45 Urine Culture - Final Complete Urine Catheterized Urine NO GROWTH IN 48 HOURS. Imaging Last 24 hours Impressions Chest X-Ray 02/05/16 0600 Signed Impressions: Service Date/Time: Friday, February 05, 2016 04:11 - CONCLUSION: Worsening/developing effusions and basilar consolidation, currently left worse than right. Arnaldo Elias MD Objective Remarks GENERAL: Middle-aged chronically critically ill, lying in bed, on TP via trach. HEENT: NCAT. mucous membranes moist. NECK: [address], no active bleeding, no evidence of infection. RESPIRATORY: Tachypneic on CPAP. Breath sounds present bilaterally, diminished L base, clear without wheezing or rhonchi. CARDIOVASCULAR: Regular, tachycardic. Sinus tach on monitor. No murmurs rubs or gallops. GASTROINTESTINAL: J tube in place with tube feeds running . Gauze dressings in place inferior aspect of midline incision. Ostomy with brown colored stool. MUSCULOSKELETAL: Pitting edema 2+ bilateral feet and hands. No significant thigh edema. Multiple open wounds in the lower extremity with gauze dressing. NEURO: Awake and responsive. Opens eyes spontaneously, makes eye contact, nods to questioning and mouths words . Moves both feet to commands. 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 Miller). - Trach exchanged 8.0 Shiley with cuff on 01/19. - Vent bundle. - continue Head of bed at 30 degrees. - DuoNeb q6h and prn. - CPAP trials daily NIGEL - on home CPAP - not an issue while tracheostomy in place - T-piece daily as tolerated - doing well today - CT guided thoracentesis 01/27. - CXR 01/23 LLL atelectasis, resolution of pleural effusions - Continue fluid mobilization with lasix on PRN basis Hyperkalemia - Hyperkalemia - borderline today - continue Kayexalate Hypernatremia - continue Free water flushes 200 q8. - Creatinine normalized. - Urine eos negative. Off vancomycin. - Avoiding nephrotoxins. - Monitor BMP - replete electrolytes per ICU protocol Perforated right colon with ischemic colitis - s/p ex-lap, extended right hemicolectomy with primary ileocolic anastamosis - s/p Ex lap 01/05 for bleeding gastric ulcer Acute protein calorie malnutrition - severe - Albumin 1.1- Beneprotein 1 packet increased to QID 01/25 - Prealbumin 14 on 01/26. Jevity goal rate to 65/hr based on nutritions most recent recommendations. Can repeat prealbumin in a week and if not improving, consider metabolic cart. Chronic hepatitis C - s/p interferon/ribavirin years ago - Liver biopsy 04/14/08 - monitor for liver failure Gastric ulcer disease - EGD 12/26/15 showed 2 large gastric ulcers with active bleeding - status post epinephrine infusion and cauterization - To OR 01/05 with GI bleeding and hemorrhagic shock. - gastrotomy with ligation of gastric ulcer, lysis of adhesions, wound VAC placement - Continue Protonix 40 g IV q12h Acute Anemia - secondary to acute blood loss - Hgb is 9.1 Today - transfused 1 unit PRBC 02/02 - Melena resolved. - No obvious active bleeding. - Ferrous Sulfate 300mg bid Thrombocytopenia - Hep PLT ab negative on 12/03 - due to chronic liver disease - no active bleeding Hyperglycemia of Critical Illness - off Insulin drip - Levemir BID on hold, not clinically indicated at this time - Low-dose insulin sliding scale DC GI Prophylaxis: -- Protonix IV BID DVT Prophylaxis: - SCDs - No chemical DVT Prophylaxis, OOB to chair and daily functional maintenance of extremities x 4 ACCESS: --PIV x 2. PT/OT. OOB to stretcher chair. Discuss ON SITE SERVICES SPECIALIST at bedside. Level 3 Problem Qualifiers (1) Respiratory failure: Qualified Code: J96.00 - Acute respiratory failure, unspecified whether with hypoxia or hypercapnia (2) Altered mental status: Qualified Code: R41.0 - Delirium (3) Sepsis: Qualified Code: A41.9 - Sepsis, due to unspecified organism Chalino Mac MD Feb 05, 2016 13:28 test negative) Bacteremia- gram positive cocci 01/21 --Pancultured today 02/03/16, start Azactam 1 g every 8 hours 02/03/16 --Debridement 12/01 p.m at bedside by Dr Pedro and Dr. Hartmann --R hand, forearm and olecranon bursa I and D and Wound vac 12/07 Dr Chavez. Nava parapsilosis in blood culture from 01/04 most likely from an intra- abdominal source(central line was changed on 01/04). Subsequent blood cultures have been negative for yeast. Seen by Dr. Wu 01/13 and no evidence of endogenous fungal endophthalmitis -- ABX per ID: Now on Fluconazole alone 01/09, convert to PO, total 4 week course. Previously: cefepime 12/17-01/16,flagyl IV 12/17-01/16 , Vancomycin 01/04-01/16 ( trough 20 on 01/15). Micafungin stopped per ID 01/08. Amphotericin B started by ID on 01/08 and stopped 01/09. CT abdomen 01/22 - 5 cm sub diaphragmatic fluid collection status post splenectomy. Initially there were plans for IR to drain however interventional radiologist reviewed images and states that there appears to be residual splenic tissue without drainable fluid collection. ID following, Dr. Becerra 01/23 blood culture -staph hemolyticus, felt to be contaminant. 01/22 noted oral thrush- Nystatin 5 ml QID (swish and spit) Wound care following for wounds- Wound vac discontinued 01/21 -Plastic Surgery requested for reassessment of LUE and skin care protocol for left arm 01/20, following recommendations --12/17 blood cultures: NGTD 12/17 central line culture: NGTD 12/17 urine cultures: NGTD 12/17 sputum cultures: NGTD C. difficile toxin 12/17: Negative (3rd negative toxin screen) -01/04 Blood culture with nava parapsilosis 01/04: horn culture, bronch with BAL, 01/04: CT chest/abd/pelvis without contrast: LLL consolidation, otherwise unchanged. 01/04: clinically LLL VAP. 01/08 Blood cultures: no growth 01/09 blood culture peripheral - NGTD 01/12 sputum cutlure - neg 01/12 - urine culture NGTD. 01/23- Bld culture-Staph hemolyticus 01/22- Oral Thrush ID signed off, gave stop date for fluconazole- reconsult if persistent fever Endocrine: Hyperglycemia of Critical Illness Diabetes - off Insulin drip - Levemir BID on hold, not clinically indicated at this time - On low-dose insulin sliding scale with bedside glucose every 6 hours, not requiring coverage -Will DC - Prednisone 10mg po daily since 01/13, weaned to 5mg po daily stop. Previously was on prednisone as an outpatient. Has been on hydrocortisone intermittently when he has gone to the OR or decompensated. MSK: -Daily functional maintenance of extremities x 4 -US LUE 01/22- negative for DVT -Multi-Podis soft boots prevent foot drop -PT eval and treat -OOB to recliner chair daily , currently tolerating 2 hours Prophylaxis: GI Prophylaxis: -- Protonix IV BID DVT Prophylaxis: - SCDs Heparin SQ 5000 u subcut discontinued 01/23, after 1 dose due to bleeding at trach . No chemical DVT Prophylaxis, OOB to chair and daily functional maintenance of extremities x 4 ACCESS: --PIV x 2. PT/OT. OOB to stretcher chair. Discuss ON SITE SERVICES SPECIALIST at bedside. Level 3 Problem Qualifiers (1) Respiratory failure: Qualified Code: J96.00 - Acute respiratory failure, unspecified whether with hypoxia or hypercapnia (2) Altered mental status: Qualified Code: R41.0 - Delirium (3) Sepsis: Qualified Code: A41.9 - Sepsis, due to unspecified organism Chalino Mac MD Feb 05, 2016 13:28
[2016-02-05] MEDS: REMOVE OLD PATCH TD SCH ×2 (17:00)
[2016-02-05] MEDS: fentaNYL 100 MCG/HR PATCH TD SCH (18:53)
[2016-02-05] MEDS: fentaNYL 25 MCG/HR PATCH TD SCH (18:54)
[2016-02-06] VITALS (19 sets, daily range): BP systolic 102–143; BP diastolic 55–78; PULSE 93–108; RESP 17–22; TEMP 98.5–99.8; O2SAT 92–100
[2016-02-06] MEDS: FREE WATER G-TUBE SCH ×3 (00:21→17:00)
[2016-02-06] MEDS: oxyCODONE HCL ORAL CONC 20 MG/ML SYRINGE PO SCH ×6 (00:21→20:16)
[2016-02-06] MEDS: SODIUM POLYSTYRENE SULFONATE SUSP 15 GM/60 ML CUP PO SCH ×2 (00:21→13:15)
[2016-02-06] MEDS: METOPROLOL TARTRATE 25 MG TAB TUBE SCH ×5 (00:21→23:07)
[2016-02-06] MEDS: CHLORHEXIDINE GLUCONATE 2 % 1 PACK (2 CLOTHS) TOP SCH (03:25)
[2016-02-06] MEDS: PANTOPRAZOLE SODIUM 40 MG VIAL IV PUSH SCH ×2 (05:04→17:39)
[2016-02-06] MEDS: AZTREONAM INJ 1,000 MG in SODIUM CHLORIDE 0.9% INJ 100 ML IV SCH ×2 (05:04→13:16)
[2016-02-06] MEDS: CHLORHEXIDINE 0.12% (ORAL KIT) 15 ML CUP MT SCH ×2 (08:00→19:17)
[2016-02-06] MEDS: MULTIVITAMINS LIQUID 5 ML UDC TUBE SCH (08:37)
[2016-02-06] MEDS: TAMSULOSIN HCL 0.4 MG CAP PO SCH ×2 (08:37→09:00)
[2016-02-06] MEDS: NYSTATIN SUSP 500,000 U/5 ML CUP SWISH-SPIT SCH ×4 (08:37→20:16)
[2016-02-06] MEDS: FERROUS SULFATE 300 MG /5ML UDC TUBE SCH ×2 (08:39→20:16)
[2016-02-06] MEDS: NEOMYCIN/POLYMYXIN/BACITRACIN OINT 15 GM TUBE TOPICAL SCH ×2 (08:43→20:16)
[2016-02-06] MEDS: SILVER SULFADIAZINE 1% CR 400 GM JAR TOPICAL SCH (08:43)
[2016-02-06] MEDS: POVIDONE IODINE 10% OINT 30 GM TUBE TOPICAL SCH ×2 (08:43→09:00)
[2016-02-06] MEDS: HYDROmorphone HCL PF 2 MG/ML VIAL IV PUSH PRN (11:27)
[2016-02-06] MEDS: ACETAMINOPHEN 650 MG/20.3 ML UDC TUBE PRN (14:14)
--- NOTE | 2016-02-06 15:36 | HHI.CCPN ---
Subjective Remarks/Hospital Course 55-year-old male brought by EMS with altered mental status. He has history of chronic opiate medications including methadone and morphine that he takes for pain management and hence they gave him Narcan IV which brought the GCS up to 13. The blood glucose was 74. He has open wounds from his right upper and bilateral lower extremities. He has history of hepatitis C. Last week he was pealing and eating shrimps. Bedside blood sugar was 76 in the ER. He was tachycardic in 1 teens and was intubated in the ED for airway protection. Admitted to ICU with sepsis due to Staph Aureus hand infection and E. Coli bacteriemia. Hospital course complicated by perforated ascending colon with extended right hemicolectomy, primary ileocolic anastamosis, open abdomen, septic shock, acute hypoxic and hypercarbic respiratory failure 12/19. Taken back to the OR 12/20 afternoon for washout and completion colectomy. 12/25 Hemoglobin dropped to 4.1. Noted to have bloody drainage from G-tube and dorsal ileostomy with black stool output due to 2 gastric ulcers bleeding, stomach a significant part had decreased discoloration indicating probable ischemia. s/p epi injection and cauterization. 12/27Tracheostomy placed. 01/06: Underwent exploratory laparotomy with findings of bleeding gastric ulcer which was oversewn by Dr. Verdin abdomen left open with wound VAC in place. Objective Vital Signs Date Time Temp Pulse Resp B/P Pulse Ox O2 Delivery O2 Flow Rate FiO2 02/06/16 14:20 19 02/06/16 14:00 108 02/06/16 12:19 98 50 02/06/16 12:00 99.8 143/78 02/06/16 08:10 T-piece 8.00 Intake and Output 02/05/16 02/05/16 02/06/16 08:00 16:00 00:00 Intake Total 798 ml 947 ml 769 ml Output Total 500 ml 1025 ml 600 ml Balance 298 ml -78 ml 169 ml Result Diagram: 02/05/16 0357 02/05/16 0357 Other Results Microbiology Date/Time Procedure Status Source Growth 02/03/16 15:40 Gram Stain - Final Complete Sputum Endotracheal 02/03/16 15:40 Sputum Culture - Final Complete Sputum Endotracheal Imaging Last 24 hours Impressions Chest X-Ray 02/05/16 0600 Signed Impressions: Service Date/Time: Friday, February 05, 2016 04:11 - CONCLUSION: Worsening/developing effusions and basilar consolidation, currently left worse than right. Arnaldo Elias MD Objective Remarks GENERAL: Middle-aged chronically critically ill, lying in bed, on TP via trach. HEENT: NCAT. mucous membranes moist. NECK: [address], no active bleeding, no evidence of infection. RESPIRATORY: Tachypneic on CPAP. Breath sounds present bilaterally, diminished L base, clear without wheezing or rhonchi. CARDIOVASCULAR: Regular, tachycardic. Sinus tach on monitor. No murmurs rubs or gallops. GASTROINTESTINAL: J tube in place with tube feeds running . Gauze dressings in place inferior aspect of midline incision. Ostomy with brown colored stool. MUSCULOSKELETAL: Pitting edema 2+ bilateral feet and hands. No significant thigh edema. Multiple open wounds in the lower extremity with gauze dressing. NEURO: Awake and responsive. Opens eyes spontaneously, makes eye contact, nods to questioning and mouths words . Moves both feet to commands. 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 Miller). - Trach exchanged 8.0 Shiley with cuff on 01/19. - Vent bundle. - continue Head of bed at 30 degrees. - DuoNeb q6h and prn. - T-piece daily as tolerated - doing well today - CT guided thoracentesis 01/27. - CXR 01/23 LLL atelectasis, resolution of pleural effusions - Continue fluid mobilization with lasix on PRN basis - CPAP trials daily - did not tolerate today more then 30 minutes due to rapid shallow breathing and hypoxemia NIGEL - on home CPAP - not an issue while tracheostomy in place Hyperkalemia - Hyperkalemia - borderline today - continue Kayexalate Hypernatremia - continue Free water flushes 200 q8. - Creatinine normalized. - Urine eos negative. Off vancomycin. - Avoiding nephrotoxins. - Monitor BMP - Continue to replete electrolytes per ICU protocol Perforated right colon with ischemic colitis - s/p ex-lap, extended right hemicolectomy with primary ileocolic anastamosis - s/p Ex lap 01/05 for bleeding gastric ulcer Acute protein calorie malnutrition - severe - Albumin 1.1- Beneprotein 1 packet increased to QID 01/25 - Prealbumin 14 on 01/26. Jevity goal rate to 65/hr based on nutritions most recent recommendations. Can repeat prealbumin in a week and if not improving, consider metabolic cart. Chronic hepatitis C - s/p interferon/ribavirin years ago - Liver biopsy 04/14/08 - monitor for liver failure Gastric ulcer disease - EGD 12/26/15 showed 2 large gastric ulcers with active bleeding - status post epinephrine infusion and cauterization - To OR 01/05 with GI bleeding and hemorrhagic shock. - gastrotomy with ligation of gastric ulcer, lysis of adhesions, wound VAC placement - Continue Protonix 40 g IV q12h Acute Anemia - secondary to acute blood loss - Hgb is 9.1 Today - transfused 1 unit PRBC 02/02 - Melena resolved. - No obvious active bleeding. - Ferrous Sulfate 300mg bid Thrombocytopenia - Hep PLT ab negative on 12/03 - due to chronic liver disease - no active bleeding Hyperglycemia of Critical Illness - off Insulin drip - Levemir BID on hold, not clinically indicated at this time - Low-dose insulin sliding scale DC GI Prophylaxis: -- Protonix IV BID DVT Prophylaxis: - SCDs - No chemical DVT Prophylaxis, OOB to chair and daily functional maintenance of extremities x 4 ACCESS: --PIV x 2. PT/OT. OOB to stretcher chair. Discuss TRAFFIC II MANAGER at bedside. Level 3 Problem Qualifiers (1) Respiratory failure: Qualified Code: J96.00 - Acute respiratory failure, unspecified whether with hypoxia or hypercapnia (2) Altered mental status: Qualified Code: R41.0 - Delirium (3) Sepsis: Qualified Code: A41.9 - Sepsis, due to unspecified organism Chalino Mac MD Feb 06, 2016 15:36
[2016-02-06 16:21] LABS: BICARBONATE 30.3 MEQ/L (21.0-32.0)
[2016-02-06] MEDS ORDERED: FUROSEMIDE 20 MG/2 ML VIAL IV PUSH SCH (18:00)
--- NOTE | 2016-02-06 22:29 | HHI.IDPN ---
Subjective Subjective Remarks Delayed entry - pt was seen around 1400 today Noted low grade fever < 100 did not tolerate Tpiece tolerating tube feeds vss stable Antibiotics fluconazole azactam Lines RSC TLC Past Medical History RA HCV sp splenectomy Allergies: Coded Allergies: Compazine (Verified Allergy, Severe, VOMITING, RASH, 08/26/14) SLURRED SPEECH, MIGRAINES Demerol (Verified Allergy, Severe, VOMITING, 08/26/14) Levaquin (Verified Allergy, Severe, 08/26/14) Penicillin (Verified Allergy, Severe, Rash, 08/26/14) Phenergan (Verified Allergy, Severe, VOMITING, 08/26/14) Uncoded Allergies: ANTI-CONVULSIVES (Allergy, Severe, MIGRAINES, SLURRED SPEECH,, 01/23/14) Objective . Vital Signs Date Time Temp Pulse Resp B/P Pulse Ox O2 Delivery O2 Flow Rate FiO2 02/06/16 21:16 20 02/06/16 20:00 99.3 96 20 127/67 100 02/06/16 20:00 96 02/06/16 20:00 50 02/06/16 19:00 96 Mechanical Ventilator 50 02/06/16 18:00 104 02/06/16 17:12 96 50 02/06/16 16:00 98.5 106 22 102/55 98 02/06/16 16:00 106 02/06/16 16:00 50 02/06/16 15:30 14 02/06/16 14:00 108 02/06/16 12:19 98 50 02/06/16 12:00 98 02/06/16 12:00 99.8 98 20 143/78 100 02/06/16 12:00 60 02/06/16 12:00 18 02/06/16 10:00 108 02/06/16 09:15 60 02/06/16 09:00 50 02/06/16 08:45 92 60 02/06/16 08:10 92 T-piece 8.00 75 02/06/16 08:00 98.8 98 22 118/68 97 02/06/16 08:00 98 02/06/16 07:00 97 Mechanical Ventilator 50 02/06/16 06:00 96 02/06/16 04:18 97 50 02/06/16 04:00 102 02/06/16 04:00 50 02/06/16 04:00 99.3 102 22 143/73 97 02/06/16 02:00 98 02/06/16 00:55 95 50 02/06/16 00:00 93 02/06/16 00:00 99.1 93 17 143/76 97 02/06/16 00:00 50 02/05/16 02/05/16 02/06/16 14:59 22:59 06:59 Intake Total 947 ml 769 ml 963 ml Output Total 1025 ml 600 ml 850 ml Balance -78 ml 169 ml 113 ml IV Total 78 ml 167 ml 211 ml Tube Feeding 469 ml 202 ml 352 ml Other 400 ml 400 ml 400 ml Output Urine Total 525 ml 350 ml 300 ml Stool Total 500 ml 250 ml 550 ml . Laboratory Tests Test 02/05/16 03:57 White Blood Count 11.5 TH/MM3 Red Blood Count 2.98 MIL/MM3 Hemoglobin 9.1 GM/DL Hematocrit 27.8 % Mean Corpuscular Volume 93.4 FL Mean Corpuscular Hemoglobin 30.5 PG Mean Corpuscular Hemoglobin 32.6 % Concent Red Cell Distribution Width 17.3 % Platelet Count 429 TH/MM3 Mean Platelet Volume 9.3 FL Neutrophils (%) (Auto) 59.1 % Lymphocytes (%) (Auto) 18.5 % Monocytes (%) (Auto) 18.5 % Eosinophils (%) (Auto) 2.8 % Basophils (%) (Auto) 1.1 % Neutrophils # (Auto) 6.8 TH/MM3 Lymphocytes # (Auto) 2.1 TH/MM3 Monocytes # (Auto) 2.1 TH/MM3 Eosinophils # (Auto) 0.3 TH/MM3 Basophils # (Auto) 0.1 TH/MM3 CBC Comment AUTO DIFF Differential Total Cells 100 Counted Neutrophils % (Manual) 56 % Band Neutrophils % 6 % Lymphocytes % 15 % Monocytes % 14 % Eosinophils % 2 % Neutrophils # (Manual) 7.8 TH/MM3 Metamyelocytes 3 % Myelocytes 2 % Promyelocytes 1 % Nucleated Red Blood Cells 1 /100 WBC Differential Comment FINAL DIFF MANUAL Blastocytes 1 % Platelet Estimate NORMAL Platelet Morphology Comment NORMAL Laboratory Tests Test 02/05/16 02/06/16 03:57 15:05 Sodium Level 147 MEQ/L 146 MEQ/L Potassium Level 5.6 MEQ/L 5.0 MEQ/L Chloride Level 109 MEQ/L 109 MEQ/L Carbon Dioxide Level 31.8 MEQ/L 30.3 MEQ/L Anion Gap 6 MEQ/L 7 MEQ/L Blood Urea Nitrogen 37 MG/DL 38 MG/DL Creatinine 0.65 MG/DL 0.77 MG/DL Estimat Glomerular Filtration 129 ML/MIN 106 ML/MIN Rate Random Glucose 101 MG/DL 132 MG/DL Calcium Level 8.8 MG/DL 8.2 MG/DL Phosphorus Level 3.3 MG/DL Magnesium Level 1.8 MG/DL Total Bilirubin 0.5 MG/DL Aspartate Amino Transf 64 U/L (AST/SGOT) Alanine Aminotransferase 53 U/L (ALT/SGPT) Alkaline Phosphatase 704 U/L Total Protein 5.4 GM/DL Albumin 1.2 GM/DL Imaging Last Impressions Chest X-Ray 02/05/16 0600 Signed Impressions: Service Date/Time: Friday, February 05, 2016 04:11 - CONCLUSION: Worsening/developing effusions and basilar consolidation, currently left worse than right. Arnaldo Elias MD Upper Extremity Ultrasound 01/30/16 0000 Signed Impressions: Service Date/Time: Saturday, January 30, 2016 11:18 - CONCLUSION: Limited exam without thrombus identified. Raudel Mckinney MD FACR Thoracentesis 01/28/16 0000 Signed Impressions: Service Date/Time: Thursday, January 28, 2016 12:54 - CONCLUSION: Uncomplicated CT-guided thoracentesis. Ramone Hall MD Abdomen/Pelvis CT 01/23/16 0800 Signed Impressions: Service Date/Time: Saturday, January 23, 2016 09:05 - CONCLUSION: Relative to the prior study the marked distention of the stomach is reduced. There is a persistent 5 cm left upper quadrant sub-diaphragmatic fluid collection and drain in the left upper quadrant. Patient is post splenectomy. Jejunostomy is in place and ostomy is noted in the right lower abdomen. No free fluid or free air is appreciated and there is no evidence of obstruction. Bilateral pleural effusions persists small but slightly larger on the right with left lower lobe consolidation. Jared Medina MD ADDENDUM: I have reviewed the images with respect to her request made for left subdiaphragmatic drainage of a fluid collection. No fluid collection is observed within the left upper quadrant. There is residual splenic tissue that measures 5 cm in diameter with Hounsfield units 62. The stomach fundus extends up into the subdiaphragmatic location. No subdiaphragmatic fluid collection is observed. Surgical drains are noted. Osmar Chavez Jr., MD Chest CT 01/05/16 0000 Signed Impressions: Service Date/Time: Tuesday, January 05, 2016 23:15 - CONCLUSION: 1. Persistent left lower lobar consolidation. Improved consolidative infiltrates in the right lower lung. 2. Interval increase size bilateral pleural effusions , left greater than right. Osmar Alegria MD Celiac/Hepatic Arteriogram 12/27/15 0000 Signed Impressions: Service Date/Time: December 13:41 - CONCLUSION: 1. No active GI bleed identified. Robert Mckinney MD Abdomen X-Ray 12/18/15 0000 Signed Impressions: Service Date/Time: Friday, December 18, 2015 16:05 - CONCLUSION: Feeding tube tip is at the gastric antrum. Arnaldo Elias MD Head CT 12/02/15 1013 Signed Impressions: Service Date/Time: Wednesday, December 02, 2015 11:00 - CONCLUSION: 1. No intracranial abnormality is seen. 2. Air-fluid level in the right maxillary sinus. Arnaldo Reyes MD Physical Exam GENERAL: On vent , awake fully alert SKIN: no jaundice. Most of pt's anasarca has resolved HEENT: no icterus, no nasal discharge Chemosis + NECK: Trach in place CARDIOVASCULAR: systolic murmur in base of heart RESPIRATORY/CHEST: few rhonchi on auscultation. GASTROINTESTINAL: dressing in place Stoma with brown stool Incision packed large amoun of seros drainage GENITOURINARY: Sandoval catheter in place with clear light yellow urine with sediment MUSCULOSKELETAL: Extremities no cyanosis, trace edema on BLE RUE with with VAC LUE with dressignin place NEUROLOGICAL: fully awake and alert , makes eye contact and follows commands communicates appropiately smiles LINES: NO evidence of infection Assessment & Plan Remarks Sepsis related to Cdiff and Intra abdominal peritonitis. - sp subtotal colectomy and ileostomy SP colon perfocation and intraperitoneal gross contamination - wound is not healing ? Cdiff Colitis Noted Cdiff PCR is negative3/3 ? Zinc preparation in perianal care could cause false negative test. Path c/o Cdiff Colitis. - repeat path favouring ischemia RUE severe nec fasc due to MSSA - skin grafting was planned, but cancelled - S/P I and D x 3 - clinically resolved Recurretn life threatening upper GI bleeding 2/2 bleeding ulcers Persistent leukocytosis - improving C. parapsilosa fungemia ? sourece intraabd vs (less likely) line - repeat BC negative - no fungal endophalmitis - Dr Parker help appreciated Low grade coag negative staph bacteremia, 1/4 bottles - probably contaminant; would not Rx at this point sp thoracocenthesis New fever: persistent ? knew PNA PLAN: complete fluconazole monitor WBC, temps dc azactam start cefpeime, fu blood clx untill final repeat sputum clx Argelia Becerra MD Feb 06, 2016 22:29
[2016-02-06] MEDS: CEFEPIME INJ 2,000 MG in SODIUM CHLORIDE 0.9% INJ 100 ML IV SCH (23:07)
[2016-02-07] VITALS (19 sets, daily range): BP systolic 105–152; BP diastolic 55–77; PULSE 93–126; RESP 15–31; TEMP 98.7–100.7; O2SAT 93–100
[2016-02-07] MEDS: FREE WATER G-TUBE SCH ×3 (01:23→17:42)
[2016-02-07] MEDS: SODIUM POLYSTYRENE SULFONATE SUSP 15 GM/60 ML CUP PO SCH ×3 (01:24→19:56)
[2016-02-07] MEDS: oxyCODONE HCL ORAL CONC 20 MG/ML SYRINGE PO SCH ×6 (01:24→19:56)
[2016-02-07] MEDS: ONDANSETRON HCL 4 MG/2 ML VIAL IV PUSH PRN ×2 (01:35→20:38)
[2016-02-07] MEDS: ACETAMINOPHEN 650 MG/20.3 ML UDC TUBE PRN ×2 (01:35→17:42)
[2016-02-07] MEDS: CHLORHEXIDINE GLUCONATE 2 % 1 PACK (2 CLOTHS) TOP SCH (03:28)
[2016-02-07 04:18] LABS: AUTOMATED NEUTROPHIL # 10.8 TH/MM3 (1.8-7.7); BASOPHIL # 0.2 TH/MM3 (0-0.2); EOSINOPHIL # 0.4 TH/MM3 (0-0.4); EOSINOPHIL % 2.4 % (0.0-4.0); HEMATOCRIT 24.3 % (39.0-51.0); LYMPHOCYTE # 2.6 TH/MM3 (1.0-4.8); MEAN CELL VOLUME 93.1 FL (80.0-100.0); MEAN CORPUSCULAR HEMOGLOBIN 30.3 PG (27.0-34.0); MEAN CORPUSCULAR HGB CONC 32.5 % (32.0-36.0); MONO % 15.4 % (0.0-8.0); NEUT % 65.2 % (16.0-70.0); PLATELET COUNT 472 TH/MM3 (150-450); RED BLOOD COUNT 2.61 MIL/MM3 (4.50-5.90); RED CELL DISTRIBUTION WIDTH 16.8 % (11.6-17.2); WHITE BLOOD COUNT 16.5 TH/MM3 (4.0-11.0)
[2016-02-07 04:39] LABS: HEMO FLAGS AUTO DIFF
[2016-02-07 04:50] LABS: ALKALINE PHOSPHATASE 609 U/L (45-117); ALT (GPT) 53 U/L (12-78); ANION GAP 6 MEQ/L (5-15); AST (GOT) 68 U/L (15-37); BICARBONATE 30.6 MEQ/L (21.0-32.0); BLOOD UREA NITROGEN 38 MG/DL (7-18); CHLORIDE 110 MEQ/L (98-107); GLOMERULAR FILTRATION RATE 104 ML/MIN (>89); MAGNESIUM 1.8 MG/DL (1.5-2.5); POTASSIUM 4.6 MEQ/L (3.5-5.1); SODIUM (NA) 147 MEQ/L (136-145); TOTAL BILIRUBIN ADULT 0.5 MG/DL (0.2-1.0)
[2016-02-07] MEDS: CEFEPIME INJ 2,000 MG in SODIUM CHLORIDE 0.9% INJ 100 ML IV SCH ×3 (06:01→23:03)
[2016-02-07] MEDS: METOPROLOL TARTRATE 25 MG TAB TUBE SCH ×4 (06:01→23:02)
[2016-02-07] MEDS: PANTOPRAZOLE SODIUM 40 MG VIAL IV PUSH SCH ×2 (06:01→17:42)
[2016-02-07 06:05] LABS: BLOOD GAS BASE EXCESS 4.8 mmol/L (-2-2); BLOOD GAS CARBOXYHEMOGLOBIN 1.1 % (0-4); BLOOD GAS HCO3 30 mmol/L (22-26); BLOOD GAS METHEMOGLOBIN 0.6 % (0-2); BLOOD GAS O2 HGB SATURATION 92 % (90-100); BLOOD GAS OXYGEN CONTENT 17.7 Vol % (12.0-20.0); BLOOD GAS PCO2 49 mmHg (38-42); BLOOD GAS PO2 69 mmHg (61-120); BLOOD GAS TOTAL HGB 13.7 G/DL (12.0-16.0); CRITICAL VALUE NO; OXYGEN DEVICE VENTILATOR; TEMP CORR TO 98.6
[2016-02-07 06:06] LABS: DRAW SITE LT PEDAL; FIO2 50 %; NUMBER OF ARTERIAL PUNCTURES 1; STAT NO
--- NOTE | 2016-02-07 06:35 | RADRPT ---
EXAM DATE/TIME: 02/07/2016 05:47 [facility] COMPARISON: CHEST SINGLE AP, February 05, 2016, 4:11. INDICATIONS : Evaluate for pulmonary disease. MEDICAL HISTORY : Hepatitis C. Cardiovascular disease. Hypertension. SURGICAL HISTORY : None. ENCOUNTER: Subsequent ACUITY: 2 weeks PAIN SCORE: Non-responsive. LOCATION: Bilateral chest FINDINGS: Mild bilateral perihilar infiltrates. Basilar consolidation improving, as are bilateral pleural effus ions, now both very small. No pneumothorax. Heart size stable, upper limits of normal. Trach collar again noted. CONCLUSION: Improving bibasilar consolidation and effusions. Arnaldo Elias MD on February 07, 2016 at 6:32 Board Certified Radiologist. This report was verified electronically.
[2016-02-07 08:43] LABS: BANDS 3 % (0-6); BASOPHILS 1 % (0-2); CORRECTED NUCLEATED RBC 1 /100 WBC (0-0); EOSINOPHILS 2 % (0-4); METAMYELOCYTES 1 % (0-1); MYELOCYTES 1 % (0-0); NEUTROPHIL # MANUAL DIFF 10.9 TH/MM3 (1.8-7.7); PLATELET ESTIMATE SMEAR HIGH (NORMAL); PLATELET MORPHOLOGY NORMAL (NORMAL); POLYS (SEG NEUTROPHILS) 61 % (16-70); SCAN/DIFF FINAL DIFF MANUAL; WBC DIFF SAMPLE 100
--- NOTE | 2016-02-07 08:57 | HHI.CCPN ---
Subjective Remarks/Hospital Course 55-year-old male brought by EMS with altered mental status. He has history of chronic opiate medications including methadone and morphine that he takes for pain management and hence they gave him Narcan IV which brought the GCS up to 13. The blood glucose was 74. He has open wounds from his right upper and bilateral lower extremities. He has history of hepatitis C. Last week he was pealing and eating shrimps. Bedside blood sugar was 76 in the ER. He was tachycardic in 1 teens and was intubated in the ED for airway protection. Admitted to ICU with sepsis due to Staph Aureus hand infection and E. Coli bacteriemia. Hospital course complicated by perforated ascending colon with extended right hemicolectomy, primary ileocolic anastamosis, open abdomen, septic shock, acute hypoxic and hypercarbic respiratory failure 12/19. Taken back to the OR 12/20 afternoon for washout and completion colectomy. 12/25 Hemoglobin dropped to 4.1. Noted to have bloody drainage from G-tube and dorsal ileostomy with black stool output due to 2 gastric ulcers bleeding, stomach a significant part had decreased discoloration indicating probable ischemia. s/p epi injection and cauterization. 12/27Tracheostomy placed. 01/06: Underwent exploratory laparotomy with findings of bleeding gastric ulcer which was oversewn by Dr. Verdin abdomen left open with wound VAC in place. Objective Vital Signs Date Time Temp Pulse Resp B/P Pulse Ox O2 Delivery O2 Flow Rate FiO2 02/07/16 08:28 98 50 02/07/16 06:00 94 02/07/16 05:28 20 02/07/16 04:00 98.7 105/55 02/06/16 19:00 Mechanical Ventilator 02/06/16 08:10 8.00 Intake and Output 02/06/16 02/06/16 02/06/16 07:59 15:59 23:59 Intake Total 963 ml 1075 ml 909 ml Output Total 850 ml 950 ml 900 ml Balance 113 ml 125 ml 9 ml Result Diagram: 02/07/16 0323 02/07/16 0323 Other Results Laboratory Tests Test 02/07/16 05:55 Blood Gas Puncture Site LT PEDAL Blood Gas Patient Temperature 98.6 Blood Gas HCO3 30 mmol/L (22-26) Blood Gas Base Excess 4.8 mmol/L (-2-2) Blood Gas Oxygen Saturation 92 % (90-100) Arterial Blood pH 7.40 (7.380-7.420) Arterial Blood Partial 49 mmHg (38-42) Pressure CO2 Arterial Blood Partial 69 mmHg Pressure O2 (61-120) Arterial Blood Oxygen Content 17.7 Vol % (12.0-20.0) Arterial Blood 1.1 % (0-4) Carboxyhemoglobin Arterial Blood Methemoglobin 0.6 % (0-2) Blood Gas Hemoglobin 13.7 G/DL (12.0-16.0) Oxygen Delivery Device VENTILATOR Blood Gas Ventilator Setting Blood Gas Inspired Oxygen 50 % Imaging Last 24 hours Impressions Chest X-Ray 02/05/16 0600 Signed Impressions: Service Date/Time: Friday, February 05, 2016 04:11 - CONCLUSION: Worsening/developing effusions and basilar consolidation, currently left worse than right. Arnaldo Elias MD Objective Remarks GENERAL: Middle-aged chronically critically ill, lying in bed, on TP via trach. HEENT: NCAT. mucous membranes moist. NECK: [address], no active bleeding, no evidence of infection. RESPIRATORY: Tachypneic on CPAP. Breath sounds present bilaterally, diminished L base, clear without wheezing or rhonchi. CARDIOVASCULAR: Regular, tachycardic. Sinus tach on monitor. No murmurs rubs or gallops. GASTROINTESTINAL: J tube in place with tube feeds running . Gauze dressings in place inferior aspect of midline incision. Ostomy with brown colored stool. MUSCULOSKELETAL: Pitting edema 2+ bilateral feet and hands. No significant thigh edema. Multiple open wounds in the lower extremity with gauze dressing. NEURO: Awake and responsive. Opens eyes spontaneously, makes eye contact, nods to questioning and mouths words . Moves both feet to commands. 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 Miller). - Trach exchanged 8.0 Shiley with cuff on 12/4. - Continue DuoNeb q6h and as needed. - T-piece daily as tolerated - CT guided thoracentesis 01/27. - CXR improved today - Continue fluid mobilization with lasix on PRN basis - CPAP trials daily - doing well today NIGEL - on home CPAP - continue Tracheostomy - not an issue while tracheostomy in place Hyperkalemia - Hyperkalemia - improving with Lasix - D/C Kayexalate Hypernatremia - continue Free water flushes 200 q8. - Creatinine normalized. - Urine eos negative. Off vancomycin. - Avoiding nephrotoxins. - Monitor BMP - Continue to replete electrolytes per ICU protocol Perforated right colon with ischemic colitis - s/p ex-lap, extended right hemicolectomy with primary ileocolic anastamosis - s/p Ex lap 01/05 for bleeding gastric ulcer - management per Acute protein calorie malnutrition - severe - re-check pre - Albumin level - continue Beneprotein 1 packet QID - Prealbumin 14 on 01/26 - Jevity goal rate to 65/hr based on nutritions most recent recommendations. - consider metabolic cart. Chronic hepatitis C - s/p interferon/ribavirin years ago - Liver biopsy 04/14/08 - monitor for liver failure Gastric ulcer disease - EGD 12/26/15 showed 2 large gastric ulcers with active bleeding - status post epinephrine infusion and cauterization - To OR 01/05 with GI bleeding and hemorrhagic shock. - gastrotomy with ligation of gastric ulcer, lysis of adhesions, wound VAC placement - Continue Protonix 40 g IV q12h Acute Anemia - secondary to acute blood loss - Hgb is 8.7 Today - transfused 1 unit PRBC 02/02 - Melena resolved. - No obvious active bleeding. - Ferrous Sulfate 300mg bid Thrombocytopenia - Hep PLT ab negative on 12/03 - due to chronic liver disease - no active bleeding Hyperglycemia of Critical Illness - off Insulin drip - Levemir BID on hold, not clinically indicated at this time - Low-dose insulin sliding scale DC GI Prophylaxis: -- Protonix IV BID DVT Prophylaxis: - SCDs - No chemical DVT Prophylaxis, OOB to chair and daily functional maintenance of extremities x 4 ACCESS: --PIV x 2. PT/OT. OOB to stretcher chair. Discuss VENEER TAPING MACHINE OFFBEARER at bedside. Level 2 Problem Qualifiers (1) Respiratory failure: Qualified Code: J96.00 - Acute respiratory failure, unspecified whether with hypoxia or hypercapnia (2) Altered mental status: Qualified Code: R41.0 - Delirium (3) Sepsis: Qualified Code: A41.9 - Sepsis, due to unspecified organism Chalino Mac MD Feb 07, 2016 08:57
[2016-02-07] MEDS: CHLORHEXIDINE 0.12% (ORAL KIT) 15 ML CUP MT SCH ×2 (09:16→19:56)
[2016-02-07] MEDS: FERROUS SULFATE 300 MG /5ML UDC TUBE SCH ×2 (09:17→19:55)
[2016-02-07] MEDS: TAMSULOSIN HCL 0.4 MG CAP PO SCH (09:17)
[2016-02-07] MEDS: MULTIVITAMINS LIQUID 5 ML UDC TUBE SCH (09:17)
[2016-02-07] MEDS: NYSTATIN SUSP 500,000 U/5 ML CUP SWISH-SPIT SCH ×4 (09:17→19:55)
[2016-02-07] MEDS: FUROSEMIDE 20 MG/2 ML VIAL IV PUSH SCH ×3 (09:17→19:56)
[2016-02-07] MEDS: SILVER SULFADIAZINE 1% CR 400 GM JAR TOPICAL SCH (09:18)
[2016-02-07] MEDS: POVIDONE IODINE 10% OINT 30 GM TUBE TOPICAL SCH (09:18)
[2016-02-07] MEDS: NEOMYCIN/POLYMYXIN/BACITRACIN OINT 15 GM TUBE TOPICAL SCH ×2 (09:18→19:57)
--- NOTE | 2016-02-07 15:04 | HHI.HCPN ---
Reason for visit a. To assist with evaluation and management of symptoms including: pain, malnutrition, wounds b. To assist medical decision maker(s) with: better understanding of current medical conditions; weighing benefits/burdens of medical treatment options; making medical treatment decisions. . Subjective/Interval History Patient seen and assessed in room 1317. Also present patient's daughter (Kezia ) and nurse, Ryann. Patient lying in bed, showing no signs of acute distress. Awake and alert. Smiling. Able to communicate by mouthing words. Patient tolerating CPAP trials this a.m with oxygen saturations in the high 90s. Patient continues to have intermittent low-grade fevers < 100. WBC trending upward today at 16.5. Patient was started Azactam initially. Azactam discontinued and Cefepime was started today Blood cultures remain negative to date, will continue to follow until final. Follow-up chest x-ray this morning shows improving bibasilar consolidation and effusions. Tolerating Jevity 1.5 @ 65cc/hr via J-tube. 02/07/16: Total protein 5.0 and Albumin 1.2. Ostomy with brown colored stool. Patient has a history of chronic pain. Probable causes of plain include multiple surgeries, invasive lines, Sandoval, ostomy, NG tube, tracheostomy, immobility, wounds, bedbound status etc. On fentanyl patch 125mcg/h q3d and oxycodone 20mg per tube q4h scheduled. Scheduled acetaminophen was discontinued on 01/16/16 given h/o Hep C with hepatic fibrosis. Dilaudid 2-4mg Iv q2h PRN for breakthrough pain, being used sparingly. No PRN medications administered for breakthrough pain in the past 24 hours. Patient reports continued, chronic pain that is primarily in his arms and back. He confirms the pain can become severe, but reports it is "okay" at the time of my exam. . Family/friend interactions Met with patient's daughter (Kezia) at patient's bedside. We discussed the patient's current clinical condition, recent diagnostic results and medical treatment plan/goals. The patient and his daughter viewed the patient's most recent chest x-rays, allowing them to ask questions and promote understanding of the terminology used when discussing imaging results. . Advance Directives Living Will: Never completed Health Care Surrogate: Never completed Durable Power of Cushion Filler: Never completed Advance Directive Specifics Health Care Surrogate(s): There is no designated health care surrogate. Per [place] statutes, in the absence of written advanced directives healthcare proxy falls to the patient's , Gopi Smith. . Documented care wishes: None available , Objective Vital Signs Date Time Temp Pulse Resp B/P Pulse Ox O2 Delivery O2 Flow Rate FiO2 02/07/16 13:32 99 45 02/07/16 12:00 50 02/07/16 12:00 115 02/07/16 10:17 28 02/07/16 10:00 108 02/07/16 08:28 98 50 02/07/16 08:28 50 02/07/16 08:00 109 02/07/16 08:00 99.4 96 23 133/75 100 02/07/16 08:00 50 02/07/16 07:00 100 Mechanical Ventilator 50 02/07/16 07:00 107 02/07/16 06:00 94 02/07/16 04:00 100 50 02/07/16 04:00 98.7 93 22 105/55 96 02/07/16 04:00 50 02/07/16 04:00 93 02/07/16 02:24 18 02/07/16 02:00 102 02/07/16 01:18 100 50 02/07/16 00:00 50 02/07/16 00:00 98 02/07/16 00:00 99.5 98 20 130/64 99 02/06/16 22:42 98 50 02/06/16 22:00 107 02/06/16 20:00 99.3 96 20 127/67 100 02/06/16 20:00 96 02/06/16 20:00 50 02/06/16 19:00 96 Mechanical Ventilator 50 02/06/16 18:00 104 02/06/16 17:12 96 50 02/06/16 16:00 98.5 106 22 102/55 98 02/06/16 16:00 106 02/06/16 16:00 50 Intake & Output 02/07/16 02/07/16 07:00 19:00 Intake Total 1844 ml Output Total 1750 ml Balance 94 ml IV Total 139 ml Tube Feeding 905 ml Other 800 ml Output Urine Total 850 ml Stool Total 900 ml . Physical Exam CONSTITUTIONAL/GENERAL: This is a frail chroncially ill middle-aged male patient on T piece via trach. TUBES/LINES/DRAINS: PIV 1, ostomy, trach, Sandoval, J tube SKIN: Ecchymoses on upper extremities, multiple skin tears. HEAD: Atraumatic. Normocephalic. EYES: No injection or drainage. Fundi not examined. ENT: Hearing appears normal. Nose without bleeding or purulent drainage. NECK: Trachea midline. Trach to T piece. CARDIOVASCULAR: Intermittently tachycardic. No murmurs, gallops, or rubs. No JVD. RESPIRATORY/CHEST: Intermittently tachypnea. Tolerating CPAP this morning . Breath sounds diminished, left base. Rhonchi. GASTROINTESTINAL: BEV drains removed. Tolerating TF. Ostomy with brown colored stool. GENITOURINARY: Without palpable bladder distension. Sandoval catheter in place. MUSCULOSKELETAL: Extremities without clubbing or cyanosis. Atrophy. NEUROLOGICAL: Awake and alert. Mouthing words. Smiling PSYCHIATRIC: No anxiety or agitation observed. . Diagnostic Tests Laboratory Laboratory Tests Test 02/05/16 02/06/16 02/07/16 02/07/16 03:57 15:05 03:23 05:55 White Blood Count 11.5 TH/MM3 16.5 TH/MM3 (4.0-11.0) (4.0-11.0) Red Blood Count 2.98 MIL/MM3 2.61 MIL/MM3 (4.50-5.90) (4.50-5.90) Hemoglobin 9.1 GM/DL 7.9 GM/DL (13.0-17.0) (13.0-17.0) Hematocrit 27.8 % 24.3 % (39.0-51.0) (39.0-51.0) Mean Corpuscular Volume 93.4 FL 93.1 FL (80.0-100.0) (80.0-100.0) Mean Corpuscular Hemoglobin 30.5 PG 30.3 PG (27.0-34.0) (27.0-34.0) Mean Corpuscular Hemoglobin 32.6 % 32.5 % Concent (32.0-36.0) (32.0-36.0) Red Cell Distribution Width 17.3 % 16.8 % (11.6-17.2) (11.6-17.2) Platelet Count 429 TH/MM3 472 TH/MM3 (150-450) (150-450) Mean Platelet Volume 9.3 FL 9.3 FL (7.0-11.0) (7.0-11.0) Neutrophils (%) (Auto) 59.1 % 65.2 % (16.0-70.0) (16.0-70.0) Lymphocytes (%) (Auto) 18.5 % 16.0 % (9.0-44.0) (9.0-44.0) Monocytes (%) (Auto) 18.5 % 15.4 % (0.0-8.0) (0.0-8.0) Eosinophils (%) (Auto) 2.8 % (0.0-4.0) 2.4 % (0.0-4.0) Basophils (%) (Auto) 1.1 % (0.0-2.0) 1.0 % (0.0-2.0) Neutrophils # (Auto) 6.8 TH/MM3 10.8 TH/MM3 (1.8-7.7) (1.8-7.7) Lymphocytes # (Auto) 2.1 TH/MM3 2.6 TH/MM3 (1.0-4.8) (1.0-4.8) Monocytes # (Auto) 2.1 TH/MM3 2.5 TH/MM3 (0-0.9) (0-0.9) Eosinophils # (Auto) 0.3 TH/MM3 0.4 TH/MM3 (0-0.4) (0-0.4) Basophils # (Auto) 0.1 TH/MM3 0.2 TH/MM3 (0-0.2) (0-0.2) CBC Comment AUTO DIFF AUTO DIFF Differential Total Cells 100 100 Counted Neutrophils % (Manual) 56 % (16-70) 61 % (16-70) Band Neutrophils % 6 % (0-6) 3 % (0-6) Lymphocytes % 15 % (9-44) 18 % (9-44) Monocytes % 14 % (0-8) 13 % (0-8) Eosinophils % 2 % (0-4) 2 % (0-4) Neutrophils # (Manual) 7.8 TH/MM3 10.9 TH/MM3 (1.8-7.7) (1.8-7.7) Metamyelocytes 3 % (0-1) 1 % (0-1) Myelocytes 2 % (0-0) 1 % (0-0) Promyelocytes 1 % (0-0) Nucleated Red Blood Cells 1 /100 WBC 1 /100 WBC (0-0) (0-0) Differential Comment FINAL DIFF FINAL DIFF MANUAL MANUAL Blastocytes 1 % (0-0) Platelet Estimate NORMAL HIGH (NORMAL) (NORMAL) Platelet Morphology Comment NORMAL NORMAL (NORMAL) (NORMAL) Sodium Level 147 MEQ/L 146 MEQ/L 147 MEQ/L (136-145) (136-145) (136-145) Potassium Level 5.6 MEQ/L 5.0 MEQ/L 4.6 MEQ/L (3.5-5.1) (3.5-5.1) (3.5-5.1) Chloride Level 109 MEQ/L 109 MEQ/L 110 MEQ/L (98-107) (98-107) (98-107) Carbon Dioxide Level 31.8 MEQ/L 30.3 MEQ/L 30.6 MEQ/L (21.0-32.0) (21.0-32.0) (21.0-32.0) Anion Gap 6 MEQ/L (5-15) 7 MEQ/L (5-15) 6 MEQ/L (5-15) Blood Urea Nitrogen 37 MG/DL (7-18) 38 MG/DL (7-18) 38 MG/DL (7-18) Creatinine 0.65 MG/DL 0.77 MG/DL 0.78 MG/DL (0.60-1.30) (0.60-1.30) (0.60-1.30) Estimat Glomerular Filtration 129 ML/MIN 106 ML/MIN 104 ML/MIN Rate (>89) (>89) (>89) Random Glucose 101 MG/DL 132 MG/DL 135 MG/DL (74-106) (74-106) (74-106) Calcium Level 8.8 MG/DL 8.2 MG/DL 8.0 MG/DL (8.5-10.1) (8.5-10.1) (8.5-10.1) Phosphorus Level 3.3 MG/DL 3.5 MG/DL (2.5-4.9) (2.5-4.9) Magnesium Level 1.8 MG/DL 1.8 MG/DL (1.5-2.5) (1.5-2.5) Total Bilirubin 0.5 MG/DL 0.5 MG/DL (0.2-1.0) (0.2-1.0) Aspartate Amino Transf 64 U/L (15-37) 68 U/L (15-37) (AST/SGOT) Alanine Aminotransferase 53 U/L (12-78) 53 U/L (12-78) (ALT/SGPT) Alkaline Phosphatase 704 U/L 609 U/L (45-117) (45-117) Total Protein 5.4 GM/DL 5.0 GM/DL (6.4-8.2) (6.4-8.2) Albumin 1.2 GM/DL 1.2 GM/DL (3.4-5.0) (3.4-5.0) Basophils % 1 % (0-2) Basophilic Stippling FAINT (NORMAL) Blood Gas Puncture Site LT PEDAL Blood Gas Patient Temperature 98.6 Blood Gas HCO3 30 mmol/L (22-26) Blood Gas Base Excess 4.8 mmol/L (-2-2) Blood Gas Oxygen Saturation 92 % (90-100) Arterial Blood pH 7.40 (7.380-7.420) Arterial Blood Partial 49 mmHg (38-42) Pressure CO2 Arterial Blood Partial 69 mmHg Pressure O2 (61-120) Arterial Blood Oxygen Content 17.7 Vol % (12.0-20.0) Arterial Blood 1.1 % (0-4) Carboxyhemoglobin Arterial Blood Methemoglobin 0.6 % (0-2) Blood Gas Hemoglobin 13.7 G/DL (12.0-16.0) Oxygen Delivery Device VENTILATOR Blood Gas Ventilator Setting Blood Gas Inspired Oxygen 50 % . Result Diagram: 02/07/16 0323 02/07/16 0323 Microbiology Microbiology Date/Time Procedure Status Source Growth 02/03/16 15:40 Gram Stain - Final Complete Sputum Endotracheal 02/03/16 15:40 Sputum Culture - Final Complete Sputum Endotracheal 02/03/16 14:42 Aerobic Blood Culture - Preliminary Resulted Blood Peripheral NO GROWTH IN 4 DAYS 02/03/16 14:42 Anaerobic Blood Culture - Preliminary Resulted Blood Peripheral NO GROWTH IN 4 DAYS 02/03/16 13:45 Urine Culture - Final Complete Urine Catheterized Urine NO GROWTH IN 48 HOURS. . Imaging Last 72 hours Impressions Chest X-Ray 02/07/16 0600 Signed Impressions: Service Date/Time: January 05:47 - CONCLUSION: Improving bibasilar consolidation and effusions. Arnaldo Elias MD Chest X-Ray 02/05/16 0600 Signed Impressions: Service Date/Time: Friday, February 05, 2016 04:11 - CONCLUSION: Worsening/developing effusions and basilar consolidation, currently left worse than right. Arnaldo Elias MD . Procedures 12/02/15: Intubated 12/02/15: NG tube placed 12/02/15: Right subclavian central line placed 12/14/15: Left IJ central line placement BEV PEG tube Ileostomy 12/28/15: Tracheostomy 12/30/15: Right subclavian central venous line placed 01/05/16: Right axillary arterial line placement 01/05/16: Right IJ central line placement 01/05/16: Bronchoscopy 01/17/16: EGD . . . 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 Probable causes of plain include multiple surgeries, invasive lines, Sandoval, ostomy, NG tube, tracheostomy , immobility, wounds, bedbound status etc. On fentanyl patch 125mcg/h q3d and oxycodone 20mg per tube q4h scheduled. Scheduled acetaminophen was discontinued on 01/16/16 given h/o Hep C with hepatic fibrosis. Dilaudid 2-4mg Iv q2h PRN for breakthrough pain, sparingly used. (2) Malnutrition 0-10 Scale: Unable to quantify Comment: Tolerating Jevity 1.5 @ 65cc/hr via J-tube. . (3) Wounds, multiple Comment: Dressings c/d/i. Plastic Surgery consulted for reassessment of LUE and skin care protocol for left arm 01/20. Wound care following for wounds- Wound vac discontinued 01/21. . Pertinent Non-Medical Issues Psychosocial:Patient was born in [facility], moving to [place] at a young age. He has 2 siblings who live locally (Feroz and Janeen). 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 The patient met his current (Gopi Smith) through mutual friends and they have now been for approximately 20 years. The patient has 1 adult daughter (Kezia) from a previous relationship. She is 30 years old. Spiritual:No islam affiliation Legal: There is no designated health care surrogate. Per [place] statutes, in the absence of written advanced directives healthcare proxy falls to the patient 's , Gopi Smith. Ethical issues impacting care: None at this time. . Important Contacts Gopi Smith, spouse: [phone] Kezia Starks, daughter: [phone] . . Prognosis Patient is a 55 year old male with a long history of chronic illnesses. PMH is significant for Hep C, NIGEL, gout, RA, HTN, chronic pain, and migraines. Patient was admitted on 12/02/15 with sepsis due to Staph Aureus hand infection and E. Coli bacteriemia. Patient has been to the OR multiple times for GI bleed. Patient has had persistent anemia/thrombocytopenia requiring multiple transfusions. S/p tracheotomy, ileostomy, BEV 2, and G- tube, patient remains critically ill with an overall poor prognosis. . Code Status: Full Code Plan * FULL CODE * Decision-making: The patient is currently not capacitated to participate in decisions related to medical treatment goals. There is no designated health care surrogate. Per [place] statutes, in the absence of written advanced directives healthcare proxy falls to the patient's . HCP: GOPI DIIORIO ( ). * Goals: GOALS REMAIN AGGRESSIVE. However, patient's daughter and agree the patient would not want to be kept alive on machines. They do not feel he is at the point where they need to consider stopping care because he has "gotten through so much are ready". * Patient will require placement at a SNF for rehabilitation upon discharge. Patient is self pay.[employer] and [facility] applications were submitted 01/16/16. * Discussed with patient's nurse. * Symptom managementpain:Patient has a history of chronic pain. Probable causes of plain include multiple surgeries, invasive lines, Sandoval, ostomy, NG tube, tracheostomy, immobility, wounds, bedbound status etc. On fentanyl patch 125mcg/h q3d and oxycodone 20mg per tube q4h scheduled. Scheduled acetaminophen was discontinued on 01/16/16 given h/o Hep C with hepatic fibrosis. Dilaudid 2- 4mg Iv q2h PRN for breakthrough pain, being used sparingly. No PRN medications administered for breakthrough pain in the past 24 hours. Patient reports continued, chronic pain that is primarily in his arms and back. He confirms the pain can become severe, but reports it is "okay" at the time of my exam. * Symptom managementmalnutrition: Tolerating Jevity 1.5 @ 65cc/hr via J-tube. * Symptom managementwounds: Dressings c/d/i. Plastic Surgery consulted for reassessment of LUE and skin care protocol for left arm 01/20. Wound care following for wounds- Wound vac discontinued 01/21. * Discussed the patient's current clinical condition, recent diagnostic results and medical treatment plan/goals with the patient and his daughter. The patient and his daughter viewed the patient's most recent chest x-rays, allowing them to ask questions and promote understanding of the terminology used when discussing imaging results. * Patient continues to have intermittent low-grade fevers < 100. WBC trending upward today at 16.5. Patient was started Azactam initially. Azactam discontinued and Cefepime was started today Blood cultures remain negative to date, will continue to follow until final. Follow-up chest x-ray this morning shows improving bibasilar consolidation and effusions. * Palliative care will continue to follow this patient throughout his hospitalization to establish trust, assist with symptom management and clarification of medical treatment goals. . Leah Pop Feb 07, 2016 15:04
[2016-02-07] MEDS: HYDROmorphone HCL PF 4 MG/ML VIAL IV PUSH PRN (16:20)
[2016-02-07] MEDS: HYDROmorphone HCL PF 2 MG/ML VIAL IV PUSH PRN (20:37)
--- NOTE | 2016-02-07 21:21 | HHI.IDPN ---
Subjective Subjective Remarks Delayed entry - pt was seen around 1500 today cont to have fever up to 101.5 not tolerating Tpiece tolerating tube feeds vss stable scant endotracheal secreiotns Antibiotics cefepime Lines RSC TLC Past Medical History RA HCV sp splenectomy Allergies: Coded Allergies: Compazine (Verified Allergy, Severe, VOMITING, RASH, 08/26/14) SLURRED SPEECH, MIGRAINES Demerol (Verified Allergy, Severe, VOMITING, 08/26/14) Levaquin (Verified Allergy, Severe, 08/26/14) Penicillin (Verified Allergy, Severe, Rash, 08/26/14) Phenergan (Verified Allergy, Severe, VOMITING, 08/26/14) Uncoded Allergies: ANTI-CONVULSIVES (Allergy, Severe, MIGRAINES, SLURRED SPEECH,, 01/23/14) Objective . Vital Signs Date Time Temp Pulse Resp B/P Pulse Ox O2 Delivery O2 Flow Rate FiO2 02/07/16 19:00 95 Mechanical Ventilator 60 Trach Collar 02/07/16 18:42 25 02/07/16 18:42 25 02/07/16 18:00 121 02/07/16 16:50 28 02/07/16 16:09 94 50 02/07/16 16:00 100.7 126 31 152/77 93 02/07/16 16:00 126 02/07/16 16:00 45 02/07/16 14:00 110 02/07/16 13:32 99 45 02/07/16 12:00 50 02/07/16 12:00 115 02/07/16 12:00 100.3 112 24 134/69 100 02/07/16 10:00 108 02/07/16 08:28 98 50 02/07/16 08:28 50 02/07/16 08:00 109 02/07/16 08:00 99.4 96 23 133/75 100 02/07/16 08:00 50 02/07/16 07:00 100 Mechanical Ventilator 50 02/07/16 07:00 107 02/07/16 06:00 94 02/07/16 04:00 100 50 02/07/16 04:00 98.7 93 22 105/55 96 02/07/16 04:00 50 02/07/16 04:00 93 02/07/16 02:00 102 02/07/16 01:18 100 50 02/07/16 00:00 50 02/07/16 00:00 98 02/07/16 00:00 99.5 98 20 130/64 99 02/06/16 22:42 98 50 02/06/16 22:00 107 02/06/16 02/06/16 02/07/16 15:00 23:00 07:00 Intake Total 1075 ml 909 ml 935 ml Output Total 950 ml 900 ml 850 ml Balance 125 ml 9 ml 85 ml IV Total 239 ml 0 ml 139 ml Tube Feeding 576 ml 509 ml 396 ml Other 260 ml 400 ml 400 ml Output Urine Total 425 ml 550 ml 300 ml Stool Total 525 ml 350 ml 550 ml . Laboratory Tests Test 02/07/16 03:23 White Blood Count 16.5 TH/MM3 Red Blood Count 2.61 MIL/MM3 Hemoglobin 7.9 GM/DL Hematocrit 24.3 % Mean Corpuscular Volume 93.1 FL Mean Corpuscular Hemoglobin 30.3 PG Mean Corpuscular Hemoglobin 32.5 % Concent Red Cell Distribution Width 16.8 % Platelet Count 472 TH/MM3 Mean Platelet Volume 9.3 FL Neutrophils (%) (Auto) 65.2 % Lymphocytes (%) (Auto) 16.0 % Monocytes (%) (Auto) 15.4 % Eosinophils (%) (Auto) 2.4 % Basophils (%) (Auto) 1.0 % Neutrophils # (Auto) 10.8 TH/MM3 Lymphocytes # (Auto) 2.6 TH/MM3 Monocytes # (Auto) 2.5 TH/MM3 Eosinophils # (Auto) 0.4 TH/MM3 Basophils # (Auto) 0.2 TH/MM3 CBC Comment AUTO DIFF Differential Total Cells 100 Counted Neutrophils % (Manual) 61 % Band Neutrophils % 3 % Lymphocytes % 18 % Monocytes % 13 % Eosinophils % 2 % Basophils % 1 % Neutrophils # (Manual) 10.9 TH/MM3 Metamyelocytes 1 % Myelocytes 1 % Nucleated Red Blood Cells 1 /100 WBC Differential Comment FINAL DIFF MANUAL Platelet Estimate HIGH Platelet Morphology Comment NORMAL Basophilic Stippling FAINT Laboratory Tests Test 02/06/16 02/07/16 15:05 03:23 Sodium Level 146 MEQ/L 147 MEQ/L Potassium Level 5.0 MEQ/L 4.6 MEQ/L Chloride Level 109 MEQ/L 110 MEQ/L Carbon Dioxide Level 30.3 MEQ/L 30.6 MEQ/L Anion Gap 7 MEQ/L 6 MEQ/L Blood Urea Nitrogen 38 MG/DL 38 MG/DL Creatinine 0.77 MG/DL 0.78 MG/DL Estimat Glomerular Filtration 106 ML/MIN 104 ML/MIN Rate Random Glucose 132 MG/DL 135 MG/DL Calcium Level 8.2 MG/DL 8.0 MG/DL Phosphorus Level 3.5 MG/DL Magnesium Level 1.8 MG/DL Total Bilirubin 0.5 MG/DL Aspartate Amino Transf 68 U/L (AST/SGOT) Alanine Aminotransferase 53 U/L (ALT/SGPT) Alkaline Phosphatase 609 U/L Total Protein 5.0 GM/DL Albumin 1.2 GM/DL Imaging Last Impressions Chest X-Ray 02/07/16 0600 Signed Impressions: Service Date/Time: January 05:47 - CONCLUSION: Improving bibasilar consolidation and effusions. Arnaldo Elias MD Upper Extremity Ultrasound 01/30/16 0000 Signed Impressions: Service Date/Time: Saturday, January 30, 2016 11:18 - CONCLUSION: Limited exam without thrombus identified. Raudel Mckinney MD FACR Thoracentesis 01/28/16 0000 Signed Impressions: Service Date/Time: Thursday, January 28, 2016 12:54 - CONCLUSION: Uncomplicated CT-guided thoracentesis. Ramone Hall MD Abdomen/Pelvis CT 01/23/16 0800 Signed Impressions: Service Date/Time: Saturday, January 23, 2016 09:05 - CONCLUSION: Relative to the prior study the marked distention of the stomach is reduced. There is a persistent 5 cm left upper quadrant sub-diaphragmatic fluid collection and drain in the left upper quadrant. Patient is post splenectomy. Jejunostomy is in place and ostomy is noted in the right lower abdomen. No free fluid or free air is appreciated and there is no evidence of obstruction. Bilateral pleural effusions persists small but slightly larger on the right with left lower lobe consolidation. Jared Medina MD ADDENDUM: I have reviewed the images with respect to her request made for left subdiaphragmatic drainage of a fluid collection. No fluid collection is observed within the left upper quadrant. There is residual splenic tissue that measures 5 cm in diameter with Hounsfield units 62. The stomach fundus extends up into the subdiaphragmatic location. No subdiaphragmatic fluid collection is observed. Surgical drains are noted. Osmar Chavez Jr., MD Chest CT 01/05/16 0000 Signed Impressions: Service Date/Time: Tuesday, January 05, 2016 23:15 - CONCLUSION: 1. Persistent left lower lobar consolidation. Improved consolidative infiltrates in the right lower lung. 2. Interval increase size bilateral pleural effusions , left greater than right. Osmar Alegria MD Celiac/Hepatic Arteriogram 12/27/15 0000 Signed Impressions: Service Date/Time: December 13:41 - CONCLUSION: 1. No active GI bleed identified. Robert Mckinney MD Abdomen X-Ray 12/18/15 0000 Signed Impressions: Service Date/Time: Friday, December 18, 2015 16:05 - CONCLUSION: Feeding tube tip is at the gastric antrum. Arnaldo Elias MD Head CT 12/02/15 1013 Signed Impressions: Service Date/Time: Wednesday, December 02, 2015 11:00 - CONCLUSION: 1. No intracranial abnormality is seen. 2. Air-fluid level in the right maxillary sinus. Arnaldo Reyes MD Physical Exam GENERAL: On vent , awake fully alert SKIN: no jaundice. Most of pt's anasarca has resolved HEENT: no icterus, no nasal discharge NECK: Trach in place CARDIOVASCULAR: systolic murmur in base of heart RESPIRATORY/CHEST: few rhonchi on auscultation. GASTROINTESTINAL: dressing in place Stoma with brown stool Incision packed minimal amount of serous drainage GENITOURINARY: Sandoval catheter in place with clear light yellow urine with sediment MUSCULOSKELETAL: Extremities no cyanosis, + 1 edema on BLE RUE with with VAC LUE with dressignin place NEUROLOGICAL: fully awake and alert , makes eye contact and follows commands communicates appropiately smiles LINES: NO evidence of infection in PIV R foot Assessment & Plan Remarks Sepsis related to Cdiff and Intra abdominal peritonitis. - sp subtotal colectomy and ileostomy SP colon perfocation and intraperitoneal gross contamination Cdiff Colitis. vs ischemia RUE severe nec fasc due to MSSA - clinically resolved infx, poor healing Recurretn life threatening upper GI bleeding 2/2 bleeding ulcers: stopped Persistent leukocytosis - improving C. parapsilosa fungemia ? sourece intraabd vs (less likely) line - repeat BC negative - no fungal endophalmitis - Dr Parker help appreciated Low grade coag negative staph bacteremia, 1/4 bottles - probably contaminant; would not Rx at this point sp thoracocenthesis New fever and leukocytosis: persistent ? knew PNA PLAN: cont cefpeime, repeat blood clx repeat sputum clx If cont to have unexplained fever/worsening .lekocytosis will get CT A/p dw RN dw Argelia Catalan MD Feb 07, 2016 21:21
[2016-02-08] VITALS (19 sets, daily range): BP systolic 113–160; BP diastolic 57–70; PULSE 94–118; RESP 11–30; TEMP 98.4–99.7; O2SAT 92–100
[2016-02-08] MEDS: FREE WATER G-TUBE SCH ×3 (01:00→17:53)
[2016-02-08] MEDS: oxyCODONE HCL ORAL CONC 20 MG/ML SYRINGE PO SCH ×6 (01:54→20:36)
[2016-02-08] MEDS: CHLORHEXIDINE GLUCONATE 2 % 1 PACK (2 CLOTHS) TOP SCH (01:55)
[2016-02-08] MEDS: FUROSEMIDE 20 MG/2 ML VIAL IV PUSH SCH ×4 (01:55→20:35)
[2016-02-08] MEDS: PANTOPRAZOLE SODIUM 40 MG VIAL IV PUSH SCH ×2 (05:12→17:58)
[2016-02-08] MEDS: CEFEPIME INJ 2,000 MG in SODIUM CHLORIDE 0.9% INJ 100 ML IV SCH ×2 (05:12→15:09)
[2016-02-08] MEDS: METOPROLOL TARTRATE 25 MG TAB TUBE SCH ×3 (05:13→17:59)
[2016-02-08 05:27] LABS: AUTOMATED NEUTROPHIL # 16.4 TH/MM3 (1.8-7.7); BASOPHIL # 0.2 TH/MM3 (0-0.2); EOSINOPHIL # 0.3 TH/MM3 (0-0.4); EOSINOPHIL % 1.5 % (0.0-4.0); HEMATOCRIT 24.9 % (39.0-51.0); LYMPHOCYTE # 2.4 TH/MM3 (1.0-4.8); MEAN CELL VOLUME 95.9 FL (80.0-100.0); MEAN CORPUSCULAR HEMOGLOBIN 30.4 PG (27.0-34.0); MEAN CORPUSCULAR HGB CONC 31.7 % (32.0-36.0); NEUT % 73.5 % (16.0-70.0); PLATELET COUNT 517 TH/MM3 (150-450); RED BLOOD COUNT 2.59 MIL/MM3 (4.50-5.90); RED CELL DISTRIBUTION WIDTH 16.5 % (11.6-17.2); WHITE BLOOD COUNT 22.3 TH/MM3 (4.0-11.0)
[2016-02-08 05:35] LABS: HEMO FLAGS AUTO DIFF
[2016-02-08 05:37] LABS: ANION GAP 9 MEQ/L (5-15); AST (GOT) 63 U/L (15-37); BICARBONATE 29.8 MEQ/L (21.0-32.0); BLOOD UREA NITROGEN 44 MG/DL (7-18); CHLORIDE 109 MEQ/L (98-107); GLOMERULAR FILTRATION RATE 88 ML/MIN (>89); MAGNESIUM 1.8 MG/DL (1.5-2.5); POTASSIUM 4.4 MEQ/L (3.5-5.1); SODIUM (NA) 148 MEQ/L (136-145)
[2016-02-08 05:43] LABS: ALKALINE PHOSPHATASE 524 U/L (45-117); ALT (GPT) 52 U/L (12-78); TOTAL BILIRUBIN ADULT 0.6 MG/DL (0.2-1.0)
[2016-02-08 07:37] LABS: BANDS 1 % (0-6); BASOPHILS 1 % (0-2); EOSINOPHILS 1 % (0-4); METAMYELOCYTES 1 % (0-1); MYELOCYTES 3 % (0-0); NEUTROPHIL # MANUAL DIFF 18.3 TH/MM3 (1.8-7.7); PLATELET ESTIMATE SMEAR HIGH (NORMAL); PLATELET MORPHOLOGY NORMAL (NORMAL); POLYS (SEG NEUTROPHILS) 77 % (16-70); SCAN/DIFF FINAL DIFF MANUAL; WBC DIFF SAMPLE 100
[2016-02-08] MEDS: FERROUS SULFATE 300 MG /5ML UDC TUBE SCH ×2 (08:48→20:35)
[2016-02-08] MEDS: TAMSULOSIN HCL 0.4 MG CAP PO SCH (08:49)
[2016-02-08] MEDS: MULTIVITAMINS LIQUID 5 ML UDC TUBE SCH (08:49)
[2016-02-08] MEDS: CHLORHEXIDINE 0.12% (ORAL KIT) 15 ML CUP MT SCH ×2 (08:49→20:00)
[2016-02-08] MEDS: NYSTATIN SUSP 500,000 U/5 ML CUP SWISH-SPIT SCH ×4 (08:49→20:35)
[2016-02-08] MEDS: POVIDONE IODINE 10% OINT 30 GM TUBE TOPICAL SCH (09:09)
[2016-02-08] MEDS: NEOMYCIN/POLYMYXIN/BACITRACIN OINT 15 GM TUBE TOPICAL SCH ×2 (09:09→20:36)
[2016-02-08] MEDS: SILVER SULFADIAZINE 1% CR 400 GM JAR TOPICAL SCH (09:10)
[2016-02-08] MEDS: SODIUM POLYSTYRENE SULFONATE SUSP 15 GM/60 ML CUP PO SCH (12:05)
[2016-02-08] MEDS: HYDROmorphone HCL PF 4 MG/ML VIAL IV PUSH PRN (12:08)
--- NOTE | 2016-02-08 12:55 | HHI.CCPN ---
Subjective Remarks/Hospital Course 55-year-old male brought by EMS with altered mental status. He has history of chronic opiate medications including methadone and morphine that he takes for pain management and hence they gave him Narcan IV which brought the GCS up to 13. The blood glucose was 74. He has open wounds from his right upper and bilateral lower extremities. He has history of hepatitis C. Last week he was pealing and eating shrimps. Bedside blood sugar was 76 in the ER. He was tachycardic in 1 teens and was intubated in the ED for airway protection. Admitted to ICU with sepsis due to Staph Aureus hand infection and E. Coli bacteriemia. Hospital course complicated by perforated ascending colon with extended right hemicolectomy, primary ileocolic anastamosis, open abdomen, septic shock, acute hypoxic and hypercarbic respiratory failure 12/19. Taken back to the OR 12/20 afternoon for washout and completion colectomy. 12/25 Hemoglobin dropped to 4.1. Noted to have bloody drainage from G-tube and dorsal ileostomy with black stool output due to 2 gastric ulcers bleeding, stomach a significant part had decreased discoloration indicating probable ischemia. s/p epi injection and cauterization. 12/27Tracheostomy placed. 01/06: Underwent exploratory laparotomy with findings of bleeding gastric ulcer which was oversewn by Dr. Verdin abdomen left open with wound VAC in place. Objective Vital Signs Date Time Temp Pulse Resp B/P Pulse Ox O2 Delivery O2 Flow Rate FiO2 02/08/16 12: 96 50 02/08/16 10:00 106 02/08/16 09:48 22 02/08/16 08:00 99.0 126/66 02/08/16 07:00 Mechanical Ventilator 8.00 Trach Collar Intake and Output 02/07/16 02/07/16 02/07/16 07:59 15:59 23:59 Intake Total 935 ml 1070 ml 470 ml Output Total 850 ml 1525 ml 700 ml Balance 85 ml -455 ml -230 ml Result Diagram: 02/08/16 0422 02/08/16 0422 Imaging Last 24 hours Impressions Chest X-Ray 02/05/16 0600 Signed Impressions: Service Date/Time: Friday, February 05, 2016 04:11 - CONCLUSION: Worsening/developing effusions and basilar consolidation, currently left worse than right. Arnaldo Elias MD Objective Remarks GENERAL: Middle-aged chronically critically ill, lying in bed, on TP via trach. HEENT: NCAT. mucous membranes moist. NECK: [address], no active bleeding, no evidence of infection. RESPIRATORY: Tachypneic on CPAP. Breath sounds present bilaterally, diminished L base, clear without wheezing or rhonchi. CARDIOVASCULAR: Regular, tachycardic. Sinus tach on monitor. No murmurs rubs or gallops. GASTROINTESTINAL: J tube in place with tube feeds running . Gauze dressings in place inferior aspect of midline incision. Ostomy with brown colored stool. MUSCULOSKELETAL: Pitting edema 2+ bilateral feet and hands. No significant thigh edema. Multiple open wounds in the lower extremity with gauze dressing. NEURO: Awake and responsive. Opens eyes spontaneously, makes eye contact, nods to questioning and mouths words . Moves both feet to commands. 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 Miller). - Trach exchanged 8.0 Shiley with cuff on 01/19. - Continue DuoNeb q6h and as needed. - T-piece daily as tolerated - CT guided thoracentesis 01/27. - CXR improved yesterday - Continue fluid mobilization with lasix - CPAP trials daily - doing well today Leukocytosis - re-culture today - hold ATB - ID appreciated NIGEL - on home CPAP - continue Tracheostomy - not an issue while tracheostomy in place Hyperkalemia - Hyperkalemia - improving with Lasix - today level 4.4 - D/C Kayexalate Hypernatremia - continue Free water flushes 200 q8. - Creatinine normalized. - Urine eos negative. Off vancomycin. - Avoiding nephrotoxins. - Monitor BMP - Continue to replete electrolytes per ICU protocol Perforated right colon with ischemic colitis - s/p ex-lap, extended right hemicolectomy with primary ileocolic anastamosis - s/p Ex lap 01/05 for bleeding gastric ulcer - management per GS Acute protein calorie malnutrition - severe - re-check pre - Albumin level - continue Beneprotein 1 packet QID - Prealbumin 14 on 01/26 - Jevity goal rate to 65/hr based on nutritions most recent recommendations. - consider metabolic cart. Chronic hepatitis C - s/p interferon/ribavirin years ago - Liver biopsy 04/14/08 - monitor for liver failure Gastric ulcer disease - EGD 12/26/15 showed 2 large gastric ulcers with active bleeding - status post epinephrine infusion and cauterization - To OR 01/05 with GI bleeding and hemorrhagic shock. - gastrotomy with ligation of gastric ulcer, lysis of adhesions, wound VAC placement - Continue Protonix 40 g IV q12h Acute Anemia - secondary to acute blood loss - Hgb is 8.7 Today - transfused 1 unit PRBC 02/02 - Melena resolved. - No obvious active bleeding. - Ferrous Sulfate 300mg bid Thrombocytopenia - Hep PLT ab negative on 12/03 - due to chronic liver disease - no active bleeding Hyperglycemia of Critical Illness - off Insulin drip - Levemir BID on hold, not clinically indicated at this time - Low-dose insulin sliding scale DC GI Prophylaxis: -- Protonix IV BID DVT Prophylaxis: - SCDs - No chemical DVT Prophylaxis, OOB to chair and daily functional maintenance of extremities x 4 ACCESS: --PIV x 2. PT/OT. OOB to stretcher chair. Discuss GUN NUMBER at bedside. Level 2 Problem Qualifiers (1) Respiratory failure: Qualified Code: J96.00 - Acute respiratory failure, unspecified whether with hypoxia or hypercapnia (2) Altered mental status: Qualified Code: R41.0 - Delirium (3) Sepsis: Qualified Code: A41.9 - Sepsis, due to unspecified organism Chalino Mac MD Feb 08, 2016 12:55
[2016-02-08] MEDS: REMOVE OLD PATCH TD SCH ×2 (16:43→16:48)
[2016-02-08] MEDS: fentaNYL 100 MCG/HR PATCH TD SCH (16:43)
[2016-02-08] MEDS: fentaNYL 25 MCG/HR PATCH TD SCH (16:49)
[2016-02-08] MEDS: RESP: ALBUTEROL 2.5 MG/IPRATROPIUM 0.5 MG NEB (PRN) NEB (19:35)
[2016-02-09] VITALS (20 sets, daily range): BP systolic 124–146; BP diastolic 63–75; PULSE 11–122; RESP 20–32; TEMP 99.6–100; O2SAT 93–97
[2016-02-09] MEDS: SODIUM POLYSTYRENE SULFONATE SUSP 15 GM/60 ML CUP PO SCH ×2 (00:19→13:00)
[2016-02-09] MEDS: FREE WATER G-TUBE SCH ×3 (00:19→17:00)
[2016-02-09] MEDS: METOPROLOL TARTRATE 25 MG TAB TUBE SCH ×5 (00:19→23:28)
[2016-02-09] MEDS: CEFEPIME INJ 2,000 MG in SODIUM CHLORIDE 0.9% INJ 100 ML IV SCH ×4 (00:19→21:54)
[2016-02-09] MEDS: oxyCODONE HCL ORAL CONC 20 MG/ML SYRINGE PO SCH ×6 (00:20→20:37)
[2016-02-09] MEDS: CHLORHEXIDINE GLUCONATE 2 % 1 PACK (2 CLOTHS) TOP SCH (04:00)
[2016-02-09] MEDS: FUROSEMIDE 20 MG/2 ML VIAL IV PUSH SCH ×4 (04:33→20:37)
[2016-02-09] MEDS: PANTOPRAZOLE SODIUM 40 MG VIAL IV PUSH SCH ×2 (04:33→17:14)
[2016-02-09 04:50] LABS: AUTOMATED NEUTROPHIL # 12.8 TH/MM3 (1.8-7.7); BASOPHIL # 0.2 TH/MM3 (0-0.2); BASOPHIL % 1.1 % (0.0-2.0); EOSINOPHIL # 0.5 TH/MM3 (0-0.4); EOSINOPHIL % 2.6 % (0.0-4.0); HEMATOCRIT 24.1 % (39.0-51.0); LYMPH % 12.3 % (9.0-44.0); LYMPHOCYTE # 2.3 TH/MM3 (1.0-4.8); MEAN CELL VOLUME 92.8 FL (80.0-100.0); MEAN CORPUSCULAR HEMOGLOBIN 30.5 PG (27.0-34.0); MEAN CORPUSCULAR HGB CONC 32.9 % (32.0-36.0); PLATELET COUNT 502 TH/MM3 (150-450); RED CELL DISTRIBUTION WIDTH 16.2 % (11.6-17.2); WHITE BLOOD COUNT 18.6 TH/MM3 (4.0-11.0)
[2016-02-09 04:58] LABS: HEMO FLAGS AUTO DIFF
[2016-02-09 05:08] LABS: ALT (GPT) 60 U/L (12-78); ANION GAP 21 MEQ/L (5-15); AST (GOT) 82 U/L (15-37); BICARBONATE 16.3 MEQ/L (21.0-32.0); BLOOD UREA NITROGEN 46 MG/DL (7-18); CHLORIDE 108 MEQ/L (98-107); GLOMERULAR FILTRATION RATE 104 ML/MIN (>89); MAGNESIUM 1.8 MG/DL (1.5-2.5); POTASSIUM 4.5 MEQ/L (3.5-5.1); SODIUM (NA) 145 MEQ/L (136-145)
[2016-02-09 05:10] LABS: ALKALINE PHOSPHATASE 499 U/L (45-117); TOTAL BILIRUBIN ADULT 0.6 MG/DL (0.2-1.0)
--- NOTE | 2016-02-09 06:27 | RADRPT ---
EXAM DATE/TIME: 02/09/2016 05:12 [facility] COMPARISON: CHEST SINGLE AP, February 07, 2016, 5:47. INDICATIONS : Pneumonia MEDICAL HISTORY : Hepatitis C. Cardiovascular disease. Hypertension SURGICAL HISTORY : None. ENCOUNTER: Subsequent ACUITY: 4 - 6 days PAIN SCORE: Non-responsive. LOCATION: Bilateral chest FINDINGS: Tracheostomy is stable. Consolidation at the left base again obscured the left diaphragm. Patchy mild parenchymal opacities elsewhere. Cardiomediastinal configuration is unchanged. CONCLUSION: Stable chest appearance. Arnaldo Laguerre MD on February 09, 2016 at 6:24 Board Certified Radiologist. This report was verified electronically.
[2016-02-09 07:28] LABS: BANDS 6 % (0-6); BASOPHILS 2 % (0-2); EOSINOPHILS 2 % (0-4); MYELOCYTES 2 % (0-0); POLYS (SEG NEUTROPHILS) 67 % (16-70); WBC DIFF SAMPLE 100
[2016-02-09 07:29] LABS: PLATELET ESTIMATE SMEAR HIGH (NORMAL); PLATELET MORPHOLOGY NORMAL (NORMAL); SCAN/DIFF FINAL DIFF MANUAL
--- NOTE | 2016-02-09 07:45 | HHI.CCPN ---
Subjective Remarks/Hospital Course 55-year-old male brought by EMS with altered mental status. He has history of chronic opiate medications including methadone and morphine that he takes for pain management and hence they gave him Narcan IV which brought the GCS up to 13. The blood glucose was 74. He has open wounds from his right upper and bilateral lower extremities. He has history of hepatitis C. Last week he was pealing and eating shrimps. Bedside blood sugar was 76 in the ER. He was tachycardic in 1 teens and was intubated in the ED for airway protection. Admitted to ICU with sepsis due to Staph Aureus hand infection and E. Coli bacteriemia. Hospital course complicated by perforated ascending colon with extended right hemicolectomy, primary ileocolic anastamosis, open abdomen, septic shock, acute hypoxic and hypercarbic respiratory failure 12/19. Taken back to the OR 12/20 afternoon for washout and completion colectomy. 12/25 Hemoglobin dropped to 4.1. Noted to have bloody drainage from G-tube and dorsal ileostomy with black stool output due to 2 gastric ulcers bleeding, stomach a significant part had decreased discoloration indicating probable ischemia. s/p epi injection and cauterization. 12/27Tracheostomy placed. 01/06: Underwent exploratory laparotomy with findings of bleeding gastric ulcer which was oversewn by Dr. Verdin abdomen left open with wound VAC in place. Objective Vital Signs Date Time Temp Pulse Resp B/P Pulse Ox O2 Delivery O2 Flow Rate FiO2 02/09/16 06:00 100 02/09/16 04:30 96 50 02/09/16 04:00 99.6 23 133/64 02/08/16 19:00 Mechanical Ventilator 02/08/16 07:00 8.00 Intake and Output 02/08/16 02/08/16 02/09/16 08:00 16:00 00:00 Intake Total 805 ml 949 ml 729 ml Output Total 600 ml 700 ml Balance 205 ml 249 ml 729 ml Result Diagram: 02/09/16 0326 02/09/16 0326 Imaging Last 24 hours Impressions Chest X-Ray 02/05/16 0600 Signed Impressions: Service Date/Time: Friday, February 05, 2016 04:11 - CONCLUSION: Worsening/developing effusions and basilar consolidation, currently left worse than right. rAnaldo Elias MD Objective Remarks GENERAL: Middle-aged chronically critically ill, lying in bed, on TP via trach. HEENT: NCAT. mucous membranes moist. NECK: [address], no active bleeding, no evidence of infection. RESPIRATORY: Tachypneic on CPAP. Breath sounds present bilaterally, diminished L base, clear without wheezing or rhonchi. CARDIOVASCULAR: Regular, tachycardic. Sinus tach on monitor. No murmurs rubs or gallops. GASTROINTESTINAL: J tube in place with tube feeds running . Gauze dressings in place inferior aspect of midline incision. Ostomy with brown colored stool. MUSCULOSKELETAL: Pitting edema 2+ bilateral feet and hands. No significant thigh edema. Multiple open wounds in the lower extremity with gauze dressing. NEURO: Awake and responsive. Opens eyes spontaneously, makes eye contact, nods to questioning and mouths words . Moves both feet to commands. 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 Miller). - Trach exchanged 8.0 Shiley with cuff on 01/19. - Continue DuoNeb q6h and as needed. - T-piece daily as tolerated - CT guided thoracentesis 01/27. - CXR stable today - Continue fluid mobilization with lasix - CPAP trials daily - failed yesterday afternoon due to rapid shallow breathing Leukocytosis - re-culture today - hold ATB - ID appreciated - trending down today NIGEL - on home CPAP - continue Tracheostomy - not an issue while tracheostomy in place Hyperkalemia - Hyperkalemia - improving with Lasix - today level 4.5 - D/C Kayexalate Hypernatremia - continue Free water flushes 200 q8. - Creatinine normalized. - Urine eos negative. - Off vancomycin. - Avoiding nephrotoxins. - Monitor BMP - Continue to replete electrolytes per ICU protocol Perforated right colon with ischemic colitis - s/p ex-lap, extended right hemicolectomy with primary ileocolic anastamosis - s/p Ex lap 01/05 for bleeding gastric ulcer - management per GS - no acute issues Acute protein calorie malnutrition - severe - re-check pre - Albumin level - continue Beneprotein 1 packet QID - Prealbumin 14 on 01/26 - Jevity goal rate to 65/hr based on nutritions most recent recommendations. - repeat pre-albumin level a.m. Chronic hepatitis C - s/p interferon/ribavirin years ago - Liver biopsy 04/14/08 - monitor for liver failure Gastric ulcer disease - EGD 12/26/15 showed 2 large gastric ulcers with active bleeding - status post epinephrine infusion and cauterization - To OR 01/05 with GI bleeding and hemorrhagic shock. - gastrotomy with ligation of gastric ulcer, lysis of adhesions, wound VAC placement - Continue Protonix 40 g IV q12h Acute Anemia - secondary to acute blood loss - Hgb is 7.9 Today and stable - last transfused 1 unit PRBC 02/02 - Melena resolved. - No obvious active bleeding. - Ferrous Sulfate 300mg bid Thrombocytopenia - resolved - Hep PLT ab negative on 12/03 - due to chronic liver disease - no active bleeding Hyperglycemia of Critical Illness - off Insulin drip - Levemir BID on hold, not clinically indicated at this time - Low-dose insulin sliding scale DC GI Prophylaxis: -- Protonix IV BID DVT Prophylaxis: - SCDs - No chemical DVT Prophylaxis, OOB to chair and daily functional maintenance of extremities x 4 ACCESS: --PIV x 2. PT/OT. OOB to stretcher chair. Discuss FIELD BROOMER at bedside. Level 2 Problem Qualifiers (1) Respiratory failure: Qualified Code: J96.00 - Acute respiratory failure, unspecified whether with hypoxia or hypercapnia (2) Altered mental status: Qualified Code: R41.0 - Delirium (3) Sepsis: Qualified Code: A41.9 - Sepsis, due to unspecified organism Chalino Mac MD Feb 09, 2016 07:45
[2016-02-09] MEDS: SILVER SULFADIAZINE 1% CR 400 GM JAR TOPICAL SCH (09:00)
[2016-02-09] MEDS: TAMSULOSIN HCL 0.4 MG CAP PO SCH (09:00)
[2016-02-09] MEDS: FERROUS SULFATE 300 MG /5ML UDC TUBE SCH ×2 (09:53→20:38)
[2016-02-09] MEDS: NYSTATIN SUSP 500,000 U/5 ML CUP SWISH-SPIT SCH ×4 (09:53→20:37)
[2016-02-09] MEDS: MULTIVITAMINS LIQUID 5 ML UDC TUBE SCH (09:53)
[2016-02-09] MEDS: SODIUM CHLORIDE 0.9% FLUSH 5 ML FLUSH IVF PRN (09:54)
[2016-02-09] MEDS: NEOMYCIN/POLYMYXIN/BACITRACIN OINT 15 GM TUBE TOPICAL SCH ×2 (09:55→20:38)
[2016-02-09] MEDS: CHLORHEXIDINE 0.12% (ORAL KIT) 15 ML CUP MT SCH ×2 (09:56→20:37)
[2016-02-09] MEDS: POVIDONE IODINE 10% OINT 30 GM TUBE TOPICAL SCH (09:56)
[2016-02-09] MEDS: RESP: ALBUTEROL 2.5 MG/IPRATROPIUM 0.5 MG NEB (PRN) NEB (16:04)
[2016-02-09] MEDS: ACETAMINOPHEN 650 MG/20.3 ML UDC TUBE PRN (20:38)
[2016-02-09] MEDS: HYDROmorphone HCL PF 4 MG/ML VIAL IV PUSH PRN (21:34)
[2016-02-10] VITALS (20 sets, daily range): BP systolic 107–135; BP diastolic 52–68; PULSE 92–124; RESP 9–28; TEMP 98.8–101.2; O2SAT 94–100
[2016-02-10] MEDS: SODIUM POLYSTYRENE SULFONATE SUSP 15 GM/60 ML CUP PO SCH ×2 (00:53→13:43)
[2016-02-10] MEDS: FREE WATER G-TUBE SCH ×3 (00:53→16:36)
[2016-02-10] MEDS: oxyCODONE HCL ORAL CONC 20 MG/ML SYRINGE PO SCH ×7 (00:53→20:03)
[2016-02-10] MEDS: FUROSEMIDE 20 MG/2 ML VIAL IV PUSH SCH ×4 (02:35→20:03)
[2016-02-10] MEDS: CHLORHEXIDINE GLUCONATE 2 % 1 PACK (2 CLOTHS) TOP SCH (03:19)
[2016-02-10] MEDS: HYDROmorphone HCL PF 4 MG/ML VIAL IV PUSH PRN ×3 (03:57→15:11)
[2016-02-10 04:34] LABS: AUTOMATED NEUTROPHIL # 12.2 TH/MM3 (1.8-7.7); BASOPHIL # 0.2 TH/MM3 (0-0.2); EOSINOPHIL # 0.4 TH/MM3 (0-0.4); HEMATOCRIT 23.5 % (39.0-51.0); LYMPHOCYTE # 2.6 TH/MM3 (1.0-4.8); MEAN CELL VOLUME 95.5 FL (80.0-100.0); MEAN CORPUSCULAR HEMOGLOBIN 30.8 PG (27.0-34.0); MEAN CORPUSCULAR HGB CONC 32.3 % (32.0-36.0); MONO % 18.7 % (0.0-8.0); NEUT % 64.3 % (16.0-70.0); PLATELET COUNT 548 TH/MM3 (150-450); RED BLOOD COUNT 2.46 MIL/MM3 (4.50-5.90); RED CELL DISTRIBUTION WIDTH 16.5 % (11.6-17.2)
[2016-02-10 04:39] LABS: HEMO FLAGS AUTO DIFF
[2016-02-10 04:41] LABS: ANION GAP 8 MEQ/L (5-15); AST (GOT) 87 U/L (15-37); BICARBONATE 28.7 MEQ/L (21.0-32.0); BLOOD UREA NITROGEN 49 MG/DL (7-18); CHLORIDE 107 MEQ/L (98-107); GLOMERULAR FILTRATION RATE 104 ML/MIN (>89); MAGNESIUM 1.8 MG/DL (1.5-2.5); POTASSIUM 4.6 MEQ/L (3.5-5.1); SODIUM (NA) 144 MEQ/L (136-145)
[2016-02-10 04:45] LABS: ALKALINE PHOSPHATASE 511 U/L (45-117); ALT (GPT) 65 U/L (12-78); TOTAL BILIRUBIN ADULT 0.6 MG/DL (0.2-1.0)
[2016-02-10] MEDS: METOPROLOL TARTRATE 25 MG TAB TUBE SCH ×4 (05:40→23:25)
[2016-02-10] MEDS: PANTOPRAZOLE SODIUM 40 MG VIAL IV PUSH SCH ×2 (05:41→17:54)
[2016-02-10] MEDS: CEFEPIME INJ 2,000 MG in SODIUM CHLORIDE 0.9% INJ 100 ML IV SCH ×3 (06:11→22:14)
[2016-02-10 06:19] LABS: BANDS 6 % (0-6); EOSINOPHILS 1 % (0-4); MYELOCYTES 1 % (0-0); POLYS (SEG NEUTROPHILS) 56 % (16-70); WBC DIFF SAMPLE 100
[2016-02-10 06:20] LABS: PLATELET ESTIMATE SMEAR HIGH (NORMAL); PLATELET MORPHOLOGY NORMAL (NORMAL); SCAN/DIFF FINAL DIFF MANUAL; STOMATOCYTES 1+ (NORMAL)
[2016-02-10] MEDS: CHLORHEXIDINE 0.12% (ORAL KIT) 15 ML CUP MT SCH ×2 (08:08→20:03)
[2016-02-10] MEDS: TAMSULOSIN HCL 0.4 MG CAP PO SCH (08:09)
[2016-02-10] MEDS: NEOMYCIN/POLYMYXIN/BACITRACIN OINT 15 GM TUBE TOPICAL SCH ×2 (08:11→20:03)
[2016-02-10] MEDS: MULTIVITAMINS LIQUID 5 ML UDC TUBE SCH (08:11)
[2016-02-10] MEDS: SILVER SULFADIAZINE 1% CR 400 GM JAR TOPICAL SCH (08:11)
[2016-02-10] MEDS: POVIDONE IODINE 10% OINT 30 GM TUBE TOPICAL SCH (08:11)
[2016-02-10] MEDS: FERROUS SULFATE 300 MG /5ML UDC TUBE SCH ×2 (08:11→20:03)
[2016-02-10] MEDS: NYSTATIN SUSP 500,000 U/5 ML CUP SWISH-SPIT SCH ×4 (08:11→20:03)
--- NOTE | 2016-02-10 09:50 | HHI.CCPN ---
Subjective Remarks/Hospital Course 55-year-old male brought by EMS with altered mental status. He has history of chronic opiate medications including methadone and morphine that he takes for pain management and hence they gave him Narcan IV which brought the GCS up to 13. The blood glucose was 74. He has open wounds from his right upper and bilateral lower extremities. He has history of hepatitis C. Last week he was pealing and eating shrimps. Bedside blood sugar was 76 in the ER. He was tachycardic in 1 teens and was intubated in the ED for airway protection. Admitted to ICU with sepsis due to Staph Aureus hand infection and E. Coli bacteriemia. Hospital course complicated by perforated ascending colon with extended right hemicolectomy, primary ileocolic anastamosis, open abdomen, septic shock, acute hypoxic and hypercarbic respiratory failure 12/19. Taken back to the OR 12/20 afternoon for washout and completion colectomy. 12/25 Hemoglobin dropped to 4.1. Noted to have bloody drainage from G-tube and dorsal ileostomy with black stool output due to 2 gastric ulcers bleeding, stomach a significant part had decreased discoloration indicating probable ischemia. s/p epi injection and cauterization. 12/27Tracheostomy placed. 01/06: Underwent exploratory laparotomy with findings of bleeding gastric ulcer which was oversewn by Dr. Verdin abdomen left open with wound VAC in place. Now closed. On trach collar occasionally alternation intermittently with a CPAP. Objective Vital Signs Date Time Temp Pulse Resp B/P Pulse Ox O2 Delivery O2 Flow Rate FiO2 02/10/16 07:40 50 02/10/16 07:39 99 02/10/16 06:00 102 02/10/16 04:00 98.9 22 134/65 02/09/16 19:00 Mechanical Ventilator 02/08/16 07:00 8.00 Intake and Output 02/09/16 02/09/16 02/10/16 08:00 16:00 00:00 Intake Total 850 ml 986 ml 766 ml Output Total 950 ml 750 ml 975 ml Balance -100 ml 236 ml -209 ml Result Diagram: 02/10/16 0344 02/10/16 0344 Imaging Last 24 hours Impressions Chest X-Ray 02/05/16 0600 Signed Impressions: Service Date/Time: Friday, February 05, 2016 04:11 - CONCLUSION: Worsening/developing effusions and basilar consolidation, currently left worse than right. Arnaldo Elias MD Objective Remarks GENERAL: Middle-aged chronically critically ill, lying in bed, on TP via trach. HEENT: NCAT. mucous membranes moist. NECK: [address], no active bleeding, no evidence of infection. RESPIRATORY: Tachypneic on CPAP. Breath sounds present bilaterally, diminished L base, clear without wheezing or rhonchi. CARDIOVASCULAR: Regular, tachycardic. Sinus tach on monitor. No murmurs rubs or gallops. GASTROINTESTINAL: J tube in place with tube feeds running . Gauze dressings in place inferior aspect of midline incision. Ostomy with brown colored stool. MUSCULOSKELETAL: Pitting edema 2+ bilateral feet and hands. No significant thigh edema. Multiple open wounds in the lower extremity with gauze dressing. NEURO: Awake and responsive. Opens eyes spontaneously, makes eye contact, nods to questioning and mouths words . Moves both feet to commands. 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 Miller). - Trach exchanged 8.0 Shiley with cuff on 01/19. - Continue DuoNeb q6h and as needed. - T-piece daily as tolerated alternate with a CPAP - Last CT guided thoracentesis 01/27. - CXR stable - Continue fluid mobilization with lasix Leukocytosis - re-cultured 02/07 - hold ATB - ID appreciated - WBC 19 today from 18.6 NIGEL - on home CPAP - continue Tracheostomy - not an issue while tracheostomy in place Hyperkalemia - Hyperkalemia - improving with Lasix - today level 4.6 - Kayexalate D/Melchor Hypernatremia - continue Free water flushes 200 q8. - Creatinine normalized. - Urine eos negative. - Off vancomycin. - Avoiding nephrotoxins. - Monitor BMP - Continue to replete electrolytes per ICU protocol Perforated right colon with ischemic colitis - s/p ex-lap, extended right hemicolectomy with primary ileocolic anastamosis - s/p Ex lap 01/05 for bleeding gastric ulcer - management per GS - no acute issues Acute protein calorie malnutrition - severe - re-check pre - Albumin level - continue Beneprotein 1 packet QID - Prealbumin 14 on 01/26 - Jevity goal rate to 65/hr based on nutritions most recent recommendations. - repeat pre-albumin level 6 today - will increase Beneprotein Chronic hepatitis C - s/p interferon/ribavirin years ago - Liver biopsy 04/14/08 - monitor for liver failure Gastric ulcer disease - EGD 12/26/15 showed 2 large gastric ulcers with active bleeding - status post epinephrine infusion and cauterization - To OR 01/05 with GI bleeding and hemorrhagic shock. - gastrotomy with ligation of gastric ulcer, lysis of adhesions, wound VAC placement - Continue Protonix 40 g IV q12h Acute Anemia - secondary to acute blood loss - Hgb is 7.9 Today and stable - last transfused 1 unit PRBC 02/02 - Melena resolved. - No obvious active bleeding. - Ferrous Sulfate 300mg bid Thrombocytopenia - resolved - Hep PLT ab negative on 12/03 - due to chronic liver disease - no active bleeding Hyperglycemia of Critical Illness - off Insulin drip - Levemir BID on hold, not clinically indicated at this time - Low-dose insulin sliding scale DC GI Prophylaxis: -- Protonix IV BID DVT Prophylaxis: - SCDs - No chemical DVT Prophylaxis, OOB to chair and daily functional maintenance of extremities x 4 ACCESS: --PIV x 2. PT/OT. OOB to stretcher chair. Discuss LENS MOUNTER at bedside. Level 2 Problem Qualifiers (1) Respiratory failure: Qualified Code: J96.00 - Acute respiratory failure, unspecified whether with hypoxia or hypercapnia (2) Altered mental status: Qualified Code: R41.0 - Delirium (3) Sepsis: Qualified Code: A41.9 - Sepsis, due to unspecified organism Chalino Mac MD Feb 10, 2016 09:50
[2016-02-10] MEDS: ACETAMINOPHEN 650 MG/20.3 ML UDC TUBE PRN (16:38)
[2016-02-10] MEDS: ONDANSETRON HCL 4 MG/2 ML VIAL IV PUSH PRN (20:42)
[2016-02-11] VITALS (19 sets, daily range): BP systolic 123–138; BP diastolic 64–89; PULSE 92–114; RESP 11–28; TEMP 98.2–100.9; O2SAT 93–99
[2016-02-11] MEDS: FUROSEMIDE 20 MG/2 ML VIAL IV PUSH SCH ×4 (02:40→20:22)
[2016-02-11] MEDS: HYDROmorphone HCL PF 4 MG/ML VIAL IV PUSH PRN (02:41)
[2016-02-11] MEDS: CHLORHEXIDINE GLUCONATE 2 % 1 PACK (2 CLOTHS) TOP SCH (04:00)
[2016-02-11] MEDS: oxyCODONE HCL ORAL CONC 20 MG/ML SYRINGE PO SCH ×6 (04:15→20:21)
[2016-02-11 05:08] LABS: AUTOMATED NEUTROPHIL # 14.3 TH/MM3 (1.8-7.7); BASOPHIL # 0.2 TH/MM3 (0-0.2); BASOPHIL % 1.2 % (0.0-2.0); EOSINOPHIL # 0.5 TH/MM3 (0-0.4); EOSINOPHIL % 2.6 % (0.0-4.0); HEMATOCRIT 23.8 % (39.0-51.0); LYMPH % 12.1 % (9.0-44.0); LYMPHOCYTE # 2.5 TH/MM3 (1.0-4.8); MEAN CORPUSCULAR HEMOGLOBIN 29.6 PG (27.0-34.0); MEAN CORPUSCULAR HGB CONC 32.5 % (32.0-36.0); MONO % 15.5 % (0.0-8.0); NEUT % 68.6 % (16.0-70.0); PLATELET COUNT 570 TH/MM3 (150-450); RED BLOOD COUNT 2.62 MIL/MM3 (4.50-5.90); RED CELL DISTRIBUTION WIDTH 16.4 % (11.6-17.2); WHITE BLOOD COUNT 20.9 TH/MM3 (4.0-11.0)
[2016-02-11] MEDS: METOPROLOL TARTRATE 25 MG TAB TUBE SCH ×4 (05:09→23:28)
[2016-02-11] MEDS: PANTOPRAZOLE SODIUM 40 MG VIAL IV PUSH SCH ×2 (05:10→17:34)
[2016-02-11 05:11] LABS: HEMO FLAGS AUTO DIFF
[2016-02-11] MEDS: CEFEPIME INJ 2,000 MG in SODIUM CHLORIDE 0.9% INJ 100 ML IV SCH ×3 (06:04→22:32)
--- NOTE | 2016-02-11 06:44 | RADRPT ---
EXAM DATE/TIME: 02/11/2016 05:41 [facility] COMPARISON: CHEST SINGLE AP, February 09, 2016, 5:12. INDICATIONS : Please evaluate after respiratory failure. MEDICAL HISTORY : Hepatitis C. Cardiovascular disease. Hypertension. SURGICAL HISTORY : None. ENCOUNTER: Subsequent ACUITY: 1 week PAIN SCORE: Non-responsive. LOCATION: Bilateral chest FINDINGS: A single AP portable supine view of the chest was obtained. The patient is now rotated to the left. T he tracheostomy tube remains in place with the tip 4 cm above the gregoria. The heart size remains mild ly prominent. There is mild streaky opacity in the right mid and lower lung. There is more consolidat vargas opacity at the left lung base with obscuration of left hemidiaphragm. Left costophrenic angle liza ears slightly blunted. CONCLUSION: Rotated study demonstrating no significant interval change. Owen Arzola MD on February 11, 2016 at 6:42 Board Certified Radiologist. This report was verified electronically.
[2016-02-11 06:54] LABS: BANDS 1 % (0-6); BASOPHILS 1 % (0-2); EOSINOPHILS 2 % (0-4); METAMYELOCYTES 1 % (0-1); NEUTROPHIL # MANUAL DIFF 15.7 TH/MM3 (1.8-7.7); PLATELET ESTIMATE SMEAR HIGH (NORMAL); POLYS (SEG NEUTROPHILS) 73 % (16-70); SCAN/DIFF FINAL DIFF MANUAL; WBC DIFF SAMPLE 100
[2016-02-11 06:55] LABS: PLATELET MORPHOLOGY NORMAL (NORMAL)
[2016-02-11 06:56] LABS: ACANTHOCYTES OCC (NORMAL); KERATOCYTES OCC (NORMAL)
[2016-02-11 07:11] LABS: BLOOD UREA NITROGEN 50 MG/DL (7-18); GLOMERULAR FILTRATION RATE 97 ML/MIN (>89)
[2016-02-11 07:12] LABS: ALKALINE PHOSPHATASE 456 U/L (45-117); ALT (GPT) 56 U/L (12-78); ANION GAP 8 MEQ/L (5-15); AST (GOT) 65 U/L (15-37); CHLORIDE 106 MEQ/L (98-107); MAGNESIUM 1.8 MG/DL (1.5-2.5); SODIUM (NA) 144 MEQ/L (136-145); TOTAL BILIRUBIN ADULT 0.6 MG/DL (0.2-1.0)
[2016-02-11] MEDS: MULTIVITAMINS LIQUID 5 ML UDC TUBE SCH (07:57)
[2016-02-11] MEDS: FERROUS SULFATE 300 MG /5ML UDC TUBE SCH ×2 (07:57→20:22)
[2016-02-11] MEDS: TAMSULOSIN HCL 0.4 MG CAP PO SCH (07:58)
[2016-02-11] MEDS: CHLORHEXIDINE 0.12% (ORAL KIT) 15 ML CUP MT SCH ×2 (08:00→20:21)
[2016-02-11] MEDS: SILVER SULFADIAZINE 1% CR 400 GM JAR TOPICAL SCH (09:00)
[2016-02-11] MEDS: FREE WATER G-TUBE SCH ×3 (09:00→17:00)
[2016-02-11] MEDS: NYSTATIN SUSP 500,000 U/5 ML CUP SWISH-SPIT SCH ×4 (09:00→20:22)
[2016-02-11] MEDS: NEOMYCIN/POLYMYXIN/BACITRACIN OINT 15 GM TUBE TOPICAL SCH ×2 (09:00→20:23)
[2016-02-11] MEDS: POVIDONE IODINE 10% OINT 30 GM TUBE TOPICAL SCH (09:00)
[2016-02-11] MEDS: HYDROmorphone HCL PF 2 MG/ML VIAL IV PUSH PRN ×2 (09:48→15:26)
[2016-02-11] MEDS: SODIUM POLYSTYRENE SULFONATE SUSP 15 GM/60 ML CUP PO SCH ×2 (12:00)
--- NOTE | 2016-02-11 13:36 | HHI.CCPN ---
Subjective Remarks/Hospital Course 55-year-old male brought by EMS with altered mental status. He has history of chronic opiate medications including methadone and morphine that he takes for pain management and hence they gave him Narcan IV which brought the GCS up to 13. The blood glucose was 74. He has open wounds from his right upper and bilateral lower extremities. He has history of hepatitis C. Last week he was pealing and eating shrimps. Bedside blood sugar was 76 in the ER. He was tachycardic in 1 teens and was intubated in the ED for airway protection. Admitted to ICU with sepsis due to Staph Aureus hand infection and E. Coli bacteriemia. Hospital course complicated by perforated ascending colon with extended right hemicolectomy, primary ileocolic anastamosis, open abdomen, septic shock, acute hypoxic and hypercarbic respiratory failure 12/19. Taken back to the OR 12/20 afternoon for washout and completion colectomy. 12/25 Hemoglobin dropped to 4.1. Noted to have bloody drainage from G-tube and dorsal ileostomy with black stool output due to 2 gastric ulcers bleeding, stomach a significant part had decreased discoloration indicating probable ischemia. s/p epi injection and cauterization. 12/27Tracheostomy placed. 01/06: Underwent exploratory laparotomy with findings of bleeding gastric ulcer which was oversewn by Dr. Verdin abdomen left open with wound VAC in place. Now closed. On trach collar occasionally alternation intermittently with a CPAP. 02/10 Tmax 100.0. The patient has been maintain on CPAP 15 over 5/24 hours without difficulty. O2 saturations greater than 92%. Plan for trach collar trials today. Objective Vital Signs Date Time Temp Pulse Resp B/P Pulse Ox O2 Delivery O2 Flow Rate FiO2 02/11/16 12:00 100.0 107 26 137/89 98 02/11/16 12:00 40 02/11/16 07:00 Mechanical Ventilator 02/08/16 07:00 8.00 Intake and Output 02/10/16 02/10/16 02/11/16 08:00 16:00 00:00 Intake Total 502 ml 456 ml 597 ml Output Total 725 ml 850 ml 950 ml Balance -223 ml -394 ml -353 ml Result Diagram: 02/11/16 0432 02/11/16 0432 Imaging Last Impressions Chest X-Ray 02/11/16 0600 Signed Impressions: Service Date/Time: Thursday, February 11, 2016 05:41 - CONCLUSION: Rotated study demonstrating no significant interval change. Owen Arzola MD Upper Extremity Ultrasound 01/30/16 0000 Signed Impressions: Service Date/Time: Saturday, January 30, 2016 11:18 - CONCLUSION: Limited exam without thrombus identified. Raudel Mckinney MD FACR Thoracentesis 01/28/16 0000 Signed Impressions: Service Date/Time: Thursday, January 28, 2016 12:54 - CONCLUSION: Uncomplicated CT-guided thoracentesis. Ramone Hall MD Abdomen/Pelvis CT 01/23/16 0800 Signed Impressions: Service Date/Time: Saturday, January 23, 2016 09:05 - CONCLUSION: Relative to the prior study the marked distention of the stomach is reduced. There is a persistent 5 cm left upper quadrant sub-diaphragmatic fluid collection and drain in the left upper quadrant. Patient is post splenectomy. Jejunostomy is in place and ostomy is noted in the right lower abdomen. No free fluid or free air is appreciated and there is no evidence of obstruction. Bilateral pleural effusions persists small but slightly larger on the right with left lower lobe consolidation. Jared Medina MD ADDENDUM: I have reviewed the images with respect to her request made for left subdiaphragmatic drainage of a fluid collection. No fluid collection is observed within the left upper quadrant. There is residual splenic tissue that measures 5 cm in diameter with Hounsfield units 62. The stomach fundus extends up into the subdiaphragmatic location. No subdiaphragmatic fluid collection is observed. Surgical drains are noted. Osmar Chavez Jr., MD Chest CT 01/05/16 0000 Signed Impressions: Service Date/Time: Tuesday, January 05, 2016 23:15 - CONCLUSION: 1. Persistent left lower lobar consolidation. Improved consolidative infiltrates in the right lower lung. 2. Interval increase size bilateral pleural effusions , left greater than right. Osmar Alegria MD Celiac/Hepatic Arteriogram 12/27/15 0000 Signed Impressions: Service Date/Time: December 13:41 - CONCLUSION: 1. No active GI bleed identified. Robert Mckinney MD Abdomen X-Ray 12/18/15 0000 Signed Impressions: Service Date/Time: Friday, December 18, 2015 16:05 - CONCLUSION: Feeding tube tip is at the gastric antrum. Arnaldo Elias MD Head CT 12/02/15 1013 Signed Impressions: Service Date/Time: Wednesday, December 02, 2015 11:00 - CONCLUSION: 1. No intracranial abnormality is seen. 2. Air-fluid level in the right maxillary sinus. Arnaldo Reyes MD Last 24 hours Impressions Chest X-Ray 02/05/16 0600 Signed Impressions: Service Date/Time: Friday, February 05, 2016 04:11 - CONCLUSION: Worsening/developing effusions and basilar consolidation, currently left worse than right. Arnaldo Elias MD Objective Remarks GENERAL: Middle-aged chronically critically ill, semi-recombinant in recliner chair, mouthing words appropriately HEENT: NCAT. mucous membranes moist. NECK: [address], no active bleeding, no evidence of infection. RESPIRATORY: Normal respiratory rate. Breath sounds present bilaterally, clear without wheezing or rhonchi. CARDIOVASCULAR: Regular, tachycardic. Sinus tach on monitor. No murmurs rubs or gallops. GASTROINTESTINAL: J tube in place with tube feeds running @ 40cc/hr. Gauze dressings in place inferior aspect of midline incision. Ostomy with brown colored stool. MUSCULOSKELETAL: Pitting edema 2+ bilateral feet and hands. No significant thigh edema. Multiple open wounds in the lower extremity with gauze dressing. NEURO: Awake and responsive. Opens eyes spontaneously, makes eye contact, nods to questioning and mouths words . Moves both feet to commands. 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 Miller). - Trach exchanged 8.0 Shiley with cuff on 01/19. - Continue DuoNeb q6h and as needed. - Resume T-piece trial daily , not tolerated for the past 24 hours - Last CT guided thoracentesis 01/27. - CXR - Continue fluid mobilization with lasix Leukocytosis - re-cultured 02/07 - - ID following, Dr. Becerra - WBC 19 today from 18.6 Sputum culture 02/07 Stenotrophonamis Maltophilia Blood Culture 02/07 NGTD NIGEL - on home CPAP - continue Tracheostomy - not an issue while tracheostomy in place Hyperkalemia - Hyperkalemia - improving with Lasix - Resolved - Kayexalate D/Melchor Hypernatremia - continue Free water flushes 200 q8. - Urine eos negative. - Off vancomycin. - Avoiding nephrotoxins. - Monitor BMP - Continue to replete electrolytes per ICU protocol Perforated right colon with ischemic colitis - s/p ex-lap, extended right hemicolectomy with primary ileocolic anastamosis - s/p Ex lap 01/05 for bleeding gastric ulcer - management per GS - no acute issues Acute protein calorie malnutrition - severe - re-check pre - Albumin level - continue Beneprotein 1 packet QID - Prealbumin 14 on 01/26 - Jevity goal rate to 65/hr based on nutritions most recent recommendations. - repeat pre-albumin level 6 today Chronic hepatitis C - s/p interferon/ribavirin years ago - Liver biopsy 04/14/08 - monitor for liver failure AST 65, ALT 56 Gastric ulcer disease - EGD 12/26/15 showed 2 large gastric ulcers with active bleeding - status post epinephrine infusion and cauterization - To OR 01/05 with GI bleeding and hemorrhagic shock. - gastrotomy with ligation of gastric ulcer, lysis of adhesions, wound VAC placement - Continue Protonix 40 g IV q12h Acute Anemia - secondary to acute blood loss - Hgb is 7.7 Today and stable - last transfused 1 unit PRBC 02/02 - Melena resolved. - No obvious active bleeding. - Ferrous Sulfate 300mg bid Thrombocytopenia - resolved - Hep PLT ab negative on 12/03 - due to chronic liver disease - no active bleeding Hyperglycemia of Critical Illness - off Insulin drip - Levemir BID on hold, not clinically indicated at this time - Low-dose insulin sliding scale DC GI Prophylaxis: -- Protonix IV BID DVT Prophylaxis: - SCDs - No chemical DVT Prophylaxis, OOB to chair and daily functional maintenance of extremities x 4 ACCESS: --PIV x 2. PT/OT. OOB to stretcher chair. Discuss EXTENDED DAY TEACHER at bedside. Level 2 Physician Fe Poole Problem Qualifiers (1) Respiratory failure: Qualified Code: J96.00 - Acute respiratory failure, unspecified whether with hypoxia or hypercapnia (2) Altered mental status: Qualified Code: R41.0 - Delirium (3) Sepsis: Qualified Code: A41.9 - Sepsis, due to unspecified organism Fe Poole MD Feb 11, 2016 13:36
[2016-02-11] MEDS: REMOVE OLD PATCH TD SCH ×2 (15:27)
[2016-02-11] MEDS: fentaNYL 100 MCG/HR PATCH TD SCH (15:27)
[2016-02-11] MEDS: fentaNYL 25 MCG/HR PATCH TD SCH (15:27)
[2016-02-11] MEDS: ACETAMINOPHEN 650 MG/20.3 ML UDC TUBE PRN (16:32)
[2016-02-12] VITALS (19 sets, daily range): BP systolic 118–140; BP diastolic 65–88; PULSE 84–132; RESP 20–35; TEMP 98.1–99.2; O2SAT 90–100
[2016-02-12] MEDS: SODIUM POLYSTYRENE SULFONATE SUSP 15 GM/60 ML CUP PO SCH ×2 (00:44→13:00)
[2016-02-12] MEDS: oxyCODONE HCL ORAL CONC 20 MG/ML SYRINGE PO SCH ×6 (00:45→20:44)
[2016-02-12] MEDS: FREE WATER G-TUBE SCH ×3 (01:00→17:00)
[2016-02-12] MEDS: FUROSEMIDE 20 MG/2 ML VIAL IV PUSH SCH ×4 (02:26→20:43)
[2016-02-12] MEDS: CHLORHEXIDINE GLUCONATE 2 % 1 PACK (2 CLOTHS) TOP SCH (04:00)
[2016-02-12 04:16] LABS: AUTOMATED NEUTROPHIL # 15.3 TH/MM3 (1.8-7.7); BASOPHIL # 0.2 TH/MM3 (0-0.2); EOSINOPHIL # 0.7 TH/MM3 (0-0.4); EOSINOPHIL % 3.3 % (0.0-4.0); HEMATOCRIT 23.1 % (39.0-51.0); HEMO FLAGS AUTO DIFF; LYMPH % 12.4 % (9.0-44.0); LYMPHOCYTE # 2.8 TH/MM3 (1.0-4.8); MEAN CELL VOLUME 90.7 FL (80.0-100.0); MEAN CORPUSCULAR HEMOGLOBIN 29.1 PG (27.0-34.0); MEAN CORPUSCULAR HGB CONC 32.1 % (32.0-36.0); MONO % 15.2 % (0.0-8.0); NEUT % 68.1 % (16.0-70.0); PLATELET COUNT 602 TH/MM3 (150-450); RED BLOOD COUNT 2.55 MIL/MM3 (4.50-5.90); RED CELL DISTRIBUTION WIDTH 16.2 % (11.6-17.2); WHITE BLOOD COUNT 22.5 TH/MM3 (4.0-11.0)
[2016-02-12 04:55] LABS: BICARBONATE 25.8 MEQ/L (21.0-32.0); MAGNESIUM 1.9 MG/DL (1.5-2.5); POTASSIUM 3.8 MEQ/L (3.5-5.1)
[2016-02-12 04:59] LABS: BANDS 11 % (0-6); CORRECTED NUCLEATED RBC 1 /100 WBC (0-0); EOSINOPHILS 2 % (0-4); METAMYELOCYTES 3 % (0-1); MYELOCYTES 1 % (0-0); NEUTROPHIL # MANUAL DIFF 17.3 TH/MM3 (1.8-7.7); PLATELET ESTIMATE SMEAR HIGH (NORMAL); PLATELET MORPHOLOGY NORMAL (NORMAL); POLYS (SEG NEUTROPHILS) 62 % (16-70); SCAN/DIFF FINAL DIFF MANUAL; WBC DIFF SAMPLE 100
[2016-02-12] MEDS: METOPROLOL TARTRATE 25 MG TAB TUBE SCH ×4 (05:37→23:20)
[2016-02-12] MEDS: PANTOPRAZOLE SODIUM 40 MG VIAL IV PUSH SCH ×2 (05:37→16:51)
[2016-02-12] MEDS: CEFEPIME INJ 2,000 MG in SODIUM CHLORIDE 0.9% INJ 100 ML IV SCH ×2 (06:05→14:07)
[2016-02-12] MEDS: FERROUS SULFATE 300 MG /5ML UDC TUBE SCH ×2 (07:52→20:44)
[2016-02-12] MEDS: NYSTATIN SUSP 500,000 U/5 ML CUP SWISH-SPIT SCH ×4 (07:52→20:43)
[2016-02-12] MEDS: MULTIVITAMINS LIQUID 5 ML UDC TUBE SCH (07:52)
[2016-02-12] MEDS: TAMSULOSIN HCL 0.4 MG CAP PO SCH (07:53)
[2016-02-12] MEDS: CHLORHEXIDINE 0.12% (ORAL KIT) 15 ML CUP MT SCH ×2 (07:53→21:39)
--- NOTE | 2016-02-12 07:59 | HHI.CCPN ---
Subjective Remarks/Hospital Course 55-year-old male brought by EMS with altered mental status. He has history of chronic opiate medications including methadone and morphine that he takes for pain management and hence they gave him Narcan IV which brought the GCS up to 13. The blood glucose was 74. He has open wounds from his right upper and bilateral lower extremities. He has history of hepatitis C. Last week he was pealing and eating shrimps. Bedside blood sugar was 76 in the ER. He was tachycardic in 1 teens and was intubated in the ED for airway protection. Admitted to ICU with sepsis due to Staph Aureus hand infection and E. Coli bacteriemia. Hospital course complicated by perforated ascending colon with extended right hemicolectomy, primary ileocolic anastamosis, open abdomen, septic shock, acute hypoxic and hypercarbic respiratory failure 12/19. Taken back to the OR 12/20 afternoon for washout and completion colectomy. 12/25 Hemoglobin dropped to 4.1. Noted to have bloody drainage from G-tube and dorsal ileostomy with black stool output due to 2 gastric ulcers bleeding, stomach a significant part had decreased discoloration indicating probable ischemia. s/p epi injection and cauterization. 12/27Tracheostomy placed. 01/06: Underwent exploratory laparotomy with findings of bleeding gastric ulcer which was oversewn by Dr. Verdin abdomen left open with wound VAC in place. Now closed. On trach collar occasionally alternation intermittently with a CPAP. 02/10 Tmax 100.0. The patient has been maintain on CPAP 15 over 5/24 hours without difficulty. O2 saturations greater than 92%. Plan for trach collar trials today. 02/11 Tmax 98.4. The patient was unable to begin trach collar trials yesterday. The patient became tachypnea, RR 50's on CPAP at 4:30 yesterday requiring mechanical ventilation being placed on a rate.Patient has been maintained on mechanical ventilation overnight without any respiratory distress. O2 saturation remains 9798%. No episodes of nausea last night the patient tolerated tube feeds at 50/cc, will advance to goal today. Objective Vital Signs Date Time Temp Pulse Resp B/P Pulse Ox O2 Delivery O2 Flow Rate FiO2 02/12/16 06:00 84 02/12/16 04:13 100 40 02/12/16 04:00 99.0 26 140/86 02/11/16 20:00 Mechanical Ventilator 02/08/16 07:00 8.00 Intake and Output 02/11/16 02/11/16 02/12/16 08:00 16:00 00:00 Intake Total 625 ml 617 ml 771 ml Output Total 750 ml 600 ml 600 ml Balance -125 ml 17 ml 171 ml Result Diagram: 02/12/16 0352 02/12/16 0352 Imaging Last Impressions Chest X-Ray 02/11/16 0600 Signed Impressions: Service Date/Time: Thursday, February 11, 2016 05:41 - CONCLUSION: Rotated study demonstrating no significant interval change. Owen Arzola MD Upper Extremity Ultrasound 01/30/16 0000 Signed Impressions: Service Date/Time: Saturday, January 30, 2016 11:18 - CONCLUSION: Limited exam without thrombus identified. Raudel Mckinney MD FACR Thoracentesis 01/28/16 0000 Signed Impressions: Service Date/Time: Thursday, January 28, 2016 12:54 - CONCLUSION: Uncomplicated CT-guided thoracentesis. Ramone Hall MD Abdomen/Pelvis CT 01/23/16 0800 Signed Impressions: Service Date/Time: Saturday, January 23, 2016 09:05 - CONCLUSION: Relative to the prior study the marked distention of the stomach is reduced. There is a persistent 5 cm left upper quadrant sub-diaphragmatic fluid collection and drain in the left upper quadrant. Patient is post splenectomy. Jejunostomy is in place and ostomy is noted in the right lower abdomen. No free fluid or free air is appreciated and there is no evidence of obstruction. Bilateral pleural effusions persists small but slightly larger on the right with left lower lobe consolidation. Jared Medina MD ADDENDUM: I have reviewed the images with respect to her request made for left subdiaphragmatic drainage of a fluid collection. No fluid collection is observed within the left upper quadrant. There is residual splenic tissue that measures 5 cm in diameter with Hounsfield units 62. The stomach fundus extends up into the subdiaphragmatic location. No subdiaphragmatic fluid collection is observed. Surgical drains are noted. Osmar Chavez Jr., MD Chest CT 01/05/16 0000 Signed Impressions: Service Date/Time: Tuesday, January 05, 2016 23:15 - CONCLUSION: 1. Persistent left lower lobar consolidation. Improved consolidative infiltrates in the right lower lung. 2. Interval increase size bilateral pleural effusions , left greater than right. Osmar Alegria MD Celiac/Hepatic Arteriogram 12/27/15 0000 Signed Impressions: Service Date/Time: December 13:41 - CONCLUSION: 1. No active GI bleed identified. Robert Mckinney MD Abdomen X-Ray 12/18/15 0000 Signed Impressions: Service Date/Time: Friday, December 18, 2015 16:05 - CONCLUSION: Feeding tube tip is at the gastric antrum. Arnaldo Elias MD Head CT 12/02/15 1013 Signed Impressions: Service Date/Time: Wednesday, December 02, 2015 11:00 - CONCLUSION: 1. No intracranial abnormality is seen. 2. Air-fluid level in the right maxillary sinus. Arnaldo Reyes MD Last 24 hours Impressions Chest X-Ray 02/05/16 0600 Signed Impressions: Service Date/Time: Friday, February 05, 2016 04:11 - CONCLUSION: Worsening/developing effusions and basilar consolidation, currently left worse than right. Arnaldo Elias MD Objective Remarks GENERAL: Middle-aged chronically critically ill, semi-recombinant in recliner chair, mouthing words appropriately HEENT: NCAT. mucous membranes moist. NECK: [address], no active bleeding, no evidence of infection. RESPIRATORY: Normal respiratory rate. Breath sounds present bilaterally, clear without wheezing or rhonchi. CARDIOVASCULAR: Regular, tachycardic. Sinus tach on monitor. No murmurs rubs or gallops. GASTROINTESTINAL: J tube in place with tube feeds running @ 50cc/hr. Gauze dressings in place inferior aspect of midline incision. Ostomy with brown colored stool. MUSCULOSKELETAL: Pitting edema 2+ bilateral feet and hands. Gauze dressing bilateral upper extremity Multiple open wounds in the lower extremity with gauze dressing. NEURO: Awake and responsive. Opens eyes spontaneously, makes eye contact, nods to questioning and mouths words . Moves both feet to commands. 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 Miller). - Trach exchanged 8.0 Shiley with cuff on 01/19 - DuoNeb q6h and as needed -Currently on mechanical ventilation settings 40/500/8 - Last CT guided thoracentesis 01/27 - CXR unchanged - Continue fluid mobilization with lasix Leukocytosis - re-cultured 02/07 - - ID following, Dr. Becerra - WBC 19 ->22 today Sputum culture 02/07 Stenotrophonamis Maltophilia Blood Culture 02/07 NGTD Urine Culture 02/02 neg NIGEL - on home CPAP - Tracheostomy - not an issue while tracheostomy in place Hyperkalemia - Hyperkalemia - improving with Lasix - Resolved - Kayexalate discontinued Hypernatremia - continue Free water flushes 200 q 8 hr - Urine eos negative. - Avoiding nephrotoxins. - Monitor BMP - Continue to replete electrolytes per ICU protocol Perforated right colon with ischemic colitis - s/p ex-lap, extended right hemicolectomy with primary ileocolic anastamosis - s/p Ex lap 01/05 for bleeding gastric ulcer - management per GS - no acute issues Acute protein calorie malnutrition - severe - continue Beneprotein 1 packet QID - Prealbumin 14 on 01/26 - Jevity goal rate to 65/hr based on nutritions most recent recommendations, currently at 50cc/hr will advance to goal today - repeat pre-albumin level 6 Chronic hepatitis C - s/p interferon/ribavirin years ago - Liver biopsy 04/14/08 - monitor for liver failure Gastric ulcer disease - EGD 12/26/15 showed 2 large gastric ulcers with active bleeding - status post epinephrine infusion and cauterization - To OR 01/05 with GI bleeding and hemorrhagic shock. - gastrotomy with ligation of gastric ulcer, lysis of adhesions, wound VAC placement - Continue Protonix 40 g IV q12h Acute Anemia - secondary to acute blood loss - Hgb stable - last transfused 1 unit PRBC 02/02 - Melena resolved. - No obvious active bleeding. - Ferrous Sulfate 300mg bid Thrombocytopenia - resolved - Hep PLT ab negative on 12/03 - due to chronic liver disease - no active bleeding Hyperglycemia of Critical Illness - off Insulin drip - Levemir BID on hold, not clinically indicated at this time - Low-dose insulin sliding scale DC Critical illness polyneuropathy -Continue PT, out of bed to chair, functional maintenance of extremities 4 Open wounds,B/L upper extremities multiple stages -Reconsult wound care 02/11 B/L upper extremities -Digits on hand redddened and edematous GI Prophylaxis: -- Protonix IV BID DVT Prophylaxis: - SCDs - No chemical DVT Prophylaxis, OOB to chair and daily functional maintenance of extremities x 4 ACCESS: --PIV x 2. Discuss DESTATICIZER FEEDER at bedside. Level 2 Physician Fe Poole Problem Qualifiers (1) Respiratory failure: Qualified Code: J96.00 - Acute respiratory failure, unspecified whether with hypoxia or hypercapnia (2) Altered mental status: Qualified Code: R41.0 - Delirium (3) Sepsis: Qualified Code: A41.9 - Sepsis, due to unspecified organism Fe Poole MD Feb 12, 2016 07:59
[2016-02-12] MEDS: HYDROmorphone HCL PF 2 MG/ML VIAL IV PUSH PRN ×2 (08:21→11:17)
[2016-02-12] MEDS: SILVER SULFADIAZINE 1% CR 400 GM JAR TOPICAL SCH (09:00)
[2016-02-12] MEDS: POVIDONE IODINE 10% OINT 30 GM TUBE TOPICAL SCH (09:00)
[2016-02-12] MEDS: NEOMYCIN/POLYMYXIN/BACITRACIN OINT 15 GM TUBE TOPICAL SCH ×2 (09:00→21:00)
[2016-02-12] MEDS: ONDANSETRON HCL 4 MG/2 ML VIAL IV PUSH PRN (15:45)
--- NOTE | 2016-02-12 16:20 | PD.PLAS.PN ---
Subjective Remarks Patient is noncommunicative. Vital Signs Date Time Temp Pulse Resp B/P Pulse Ox O2 Delivery O2 Flow Rate FiO2 02/12/16 15:39 94 40 02/12/16 14:00 121 02/12/16 12:00 40 02/12/16 12:00 112 02/12/16 12:00 99.0 112 35 130/71 98 02/12/16 11:16 94 40 02/12/16 10:00 108 02/12/16 08:33 90 40 02/12/16 08:33 40 02/12/16 08:00 99 02/12/16 08:00 98.1 99 32 122/82 93 02/12/16 08:00 40 02/12/16 07:00 93 Mechanical Ventilator 40 02/12/16 06:00 84 02/12/16 04:13 100 40 02/12/16 04:00 40 02/12/16 04:00 105 02/12/16 04:00 99.0 101 26 140/86 96 02/12/16 02:00 90 02/12/16 01:16 96 40 02/12/16 00:00 40 02/12/16 00:00 102 02/11/16 22:20 98 40 02/11/16 22:00 102 02/11/16 20:00 96 Mechanical Ventilator 40 02/11/16 20:00 94 02/11/16 20:00 98.9 94 11 138/74 96 02/11/16 20:00 40 02/11/16 19:51 97 40 02/11/16 18:53 15 02/11/16 18:00 92 02/11/16 16:24 95 40 I/O 02/11/16 02/11/16 02/11/16 02/12/16 02/12/16 02/12/16 07:00 15:00 23:00 07:00 15:00 23:00 Intake Total 625 ml 617 ml 771 ml 704 ml 577 ml Output Total 750 ml 600 ml 600 ml 850 ml 670 ml Balance -125 ml 17 ml 171 ml -146 ml -93 ml IV Total 175 ml 150 ml 315 ml 182 ml 20 ml Tube Feeding 50 ml 267 ml 256 ml 322 ml 357 ml Other 400 ml 200 ml 200 ml 200 ml 200 ml Output Urine Total 525 ml 450 ml 350 ml 600 ml 450 ml Stool Total 225 ml 150 ml 250 ml 250 ml 220 ml Laboratory Tests Test 02/12/16 03:52 White Blood Count 22.5 Red Blood Count 2.55 Hemoglobin 7.4 Hematocrit 23.1 Mean Corpuscular Volume 90.7 Mean Corpuscular Hemoglobin 29.1 Mean Corpuscular Hemoglobin 32.1 Concent Red Cell Distribution Width 16.2 Platelet Count 602 Mean Platelet Volume 9.4 Neutrophils (%) (Auto) 68.1 Lymphocytes (%) (Auto) 12.4 Monocytes (%) (Auto) 15.2 Eosinophils (%) (Auto) 3.3 Basophils (%) (Auto) 1.0 Neutrophils # (Auto) 15.3 Lymphocytes # (Auto) 2.8 Monocytes # (Auto) 3.4 Eosinophils # (Auto) 0.7 Basophils # (Auto) 0.2 CBC Comment AUTO DIFF Differential Total Cells 100 Counted Neutrophils % (Manual) 62 Band Neutrophils % 11 Lymphocytes % 11 Monocytes % 10 Eosinophils % 2 Neutrophils # (Manual) 17.3 Metamyelocytes 3 Myelocytes 1 Nucleated Red Blood Cells 1 Differential Comment FINAL DIFF MANUAL Platelet Estimate HIGH Platelet Morphology Comment NORMAL Sodium Level 145 Potassium Level 3.8 Chloride Level 109 Carbon Dioxide Level 25.8 Anion Gap 10 Blood Urea Nitrogen 53 Creatinine 0.94 Estimat Glomerular Filtration 84 Rate Random Glucose 135 Calcium Level 9.1 Magnesium Level 1.9 Date/Time Procedure Status Source Growth 02/08/16 12:00 Gram Stain - Final Complete Sputum Endotracheal 02/08/16 12:00 Sputum Culture - Final Complete Stenotrophomonas Maltophilia 02/08/16 08:00 Aerobic Blood Culture - Preliminary Resulted Blood Peripheral NO GROWTH IN 4 DAYS 02/08/16 08:00 Anaerobic Blood Culture - Preliminary Resulted Blood Peripheral NO GROWTH IN 4 DAYS Result Diagram: 02/12/16 0352 02/12/16 0352 Exam Findings Examination of the right upper extremity reveals excellent granulation to the forearm. There are some exposed tendons from the wrist distally. In addition there are some PIP joints which have exposed extensor tendons. Some of the tendon material appears to be nonviable. Examination of the left upper extremity reveals eschars without evidence of cellulitis. The eschars appear to be . Plan Impression: The wounds of the left upper extremity appear to be ready for debridement. In addition, the right upper extremity wounds appear to be ready for debridement and application of Integra. Plan: The plan is discussed with the patient's mother as well as the RN. We will take the patient to the operating room later in the week as long as he is stable and cleared by his attending physician. Barbara Pedro MD Feb 12, 2016 16:20
[2016-02-12] MEDS: HYDROmorphone HCL PF 4 MG/ML VIAL IV PUSH PRN (16:52)
--- NOTE | 2016-02-12 19:17 | HHI.IDPN ---
Subjective Subjective Remarks low grade fever not tolerating CPAP Antibiotics cefepime Lines periferal L foot Past Medical History RA HCV sp splenectomy Allergies: Coded Allergies: Compazine (Verified Allergy, Severe, VOMITING, RASH, 08/26/14) SLURRED SPEECH, MIGRAINES Demerol (Verified Allergy, Severe, VOMITING, 08/26/14) Levaquin (Verified Allergy, Severe, 08/26/14) Penicillin (Verified Allergy, Severe, Rash, 08/26/14) Phenergan (Verified Allergy, Severe, VOMITING, 08/26/14) Uncoded Allergies: ANTI-CONVULSIVES (Allergy, Severe, MIGRAINES, SLURRED SPEECH,, 01/23/14) Objective . Vital Signs Date Time Temp Pulse Resp B/P Pulse Ox O2 Delivery O2 Flow Rate FiO2 02/12/16 18:00 112 02/12/16 16:00 132 02/12/16 16:00 40 02/12/16 16:00 98.2 132 33 134/70 98 02/12/16 15:39 94 40 02/12/16 14:00 121 02/12/16 12:00 40 02/12/16 12:00 112 02/12/16 12:00 99.0 112 35 130/71 98 02/12/16 11:16 94 40 02/12/16 10:00 108 02/12/16 08:33 90 40 02/12/16 08:33 40 02/12/16 08:00 99 02/12/16 08:00 98.1 99 32 122/82 93 02/12/16 08:00 40 02/12/16 07:00 93 Mechanical Ventilator 40 02/12/16 06:00 84 02/12/16 04:13 100 40 02/12/16 04:00 40 02/12/16 04:00 105 02/12/16 04:00 99.0 101 26 140/86 96 02/12/16 02:00 90 02/12/16 01:16 96 40 02/12/16 00:00 40 02/12/16 00:00 102 02/11/16 22:20 98 40 02/11/16 22:00 102 02/11/16 20:00 96 Mechanical Ventilator 40 02/11/16 20:00 94 02/11/16 20:00 98.9 94 11 138/74 96 02/11/16 20:00 40 02/11/16 19:51 97 40 02/11/16 02/11/16 02/12/16 15:00 23:00 07:00 Intake Total 617 ml 771 ml 704 ml Output Total 600 ml 600 ml 850 ml Balance 17 ml 171 ml -146 ml IV Total 150 ml 315 ml 182 ml Tube Feeding 267 ml 256 ml 322 ml Other 200 ml 200 ml 200 ml Output Urine Total 450 ml 350 ml 600 ml Stool Total 150 ml 250 ml 250 ml . Laboratory Tests Test 02/11/16 02/12/16 04:32 03:52 White Blood Count 20.9 TH/MM3 22.5 TH/MM3 Red Blood Count 2.62 MIL/MM3 2.55 MIL/MM3 Hemoglobin 7.7 GM/DL 7.4 GM/DL Hematocrit 23.8 % 23.1 % Mean Corpuscular Volume 91.0 FL 90.7 FL Mean Corpuscular Hemoglobin 29.6 PG 29.1 PG Mean Corpuscular Hemoglobin 32.5 % 32.1 % Concent Red Cell Distribution Width 16.4 % 16.2 % Platelet Count 570 TH/MM3 602 TH/MM3 Mean Platelet Volume 9.4 FL 9.4 FL Neutrophils (%) (Auto) 68.6 % 68.1 % Lymphocytes (%) (Auto) 12.1 % 12.4 % Monocytes (%) (Auto) 15.5 % 15.2 % Eosinophils (%) (Auto) 2.6 % 3.3 % Basophils (%) (Auto) 1.2 % 1.0 % Neutrophils # (Auto) 14.3 TH/MM3 15.3 TH/MM3 Lymphocytes # (Auto) 2.5 TH/MM3 2.8 TH/MM3 Monocytes # (Auto) 3.2 TH/MM3 3.4 TH/MM3 Eosinophils # (Auto) 0.5 TH/MM3 0.7 TH/MM3 Basophils # (Auto) 0.2 TH/MM3 0.2 TH/MM3 CBC Comment AUTO DIFF AUTO DIFF Differential Total Cells 100 100 Counted Neutrophils % (Manual) 73 % 62 % Band Neutrophils % 1 % 11 % Lymphocytes % 9 % 11 % Monocytes % 13 % 10 % Eosinophils % 2 % 2 % Basophils % 1 % Neutrophils # (Manual) 15.7 TH/MM3 17.3 TH/MM3 Metamyelocytes 1 % 3 % Differential Comment FINAL DIFF FINAL DIFF MANUAL MANUAL Platelet Estimate HIGH HIGH Platelet Morphology Comment NORMAL NORMAL Acanthocytes OCC Keratocytes OCC Myelocytes 1 % Nucleated Red Blood Cells 1 /100 WBC Laboratory Tests Test 02/11/16 02/11/16 02/12/16 04:32 15:50 03:52 Sodium Level 144 MEQ/L 145 MEQ/L Potassium Level 4.0 MEQ/L 3.8 MEQ/L Chloride Level 106 MEQ/L 109 MEQ/L Carbon Dioxide Level 30.0 MEQ/L 25.8 MEQ/L Anion Gap 8 MEQ/L 10 MEQ/L Blood Urea Nitrogen 50 MG/DL 53 MG/DL Creatinine 0.83 MG/DL 0.94 MG/DL Estimat Glomerular Filtration 97 ML/MIN 84 ML/MIN Rate Random Glucose 97 MG/DL 135 MG/DL Calcium Level 9.0 MG/DL 9.1 MG/DL Phosphorus Level 2.7 MG/DL 3.1 MG/DL Magnesium Level 1.8 MG/DL 1.9 MG/DL Total Bilirubin 0.6 MG/DL Aspartate Amino Transf 65 U/L (AST/SGOT) Alanine Aminotransferase 56 U/L (ALT/SGPT) Alkaline Phosphatase 456 U/L Total Protein 5.6 GM/DL Albumin 1.1 GM/DL Imaging Last Impressions Chest X-Ray 02/11/16 0600 Signed Impressions: Service Date/Time: Thursday, February 11, 2016 05:41 - CONCLUSION: Rotated study demonstrating no significant interval change. Owen Arzola MD Upper Extremity Ultrasound 01/30/16 0000 Signed Impressions: Service Date/Time: Saturday, January 30, 2016 11:18 - CONCLUSION: Limited exam without thrombus identified. Raudel Mckniney MD FACR Thoracentesis 01/28/16 0000 Signed Impressions: Service Date/Time: Thursday, January 28, 2016 12:54 - CONCLUSION: Uncomplicated CT-guided thoracentesis. Ramone Hall MD Abdomen/Pelvis CT 01/23/16 0800 Signed Impressions: Service Date/Time: Saturday, January 23, 2016 09:05 - CONCLUSION: Relative to the prior study the marked distention of the stomach is reduced. There is a persistent 5 cm left upper quadrant sub-diaphragmatic fluid collection and drain in the left upper quadrant. Patient is post splenectomy. Jejunostomy is in place and ostomy is noted in the right lower abdomen. No free fluid or free air is appreciated and there is no evidence of obstruction. Bilateral pleural effusions persists small but slightly larger on the right with left lower lobe consolidation. Jared Medina MD ADDENDUM: I have reviewed the images with respect to her request made for left subdiaphragmatic drainage of a fluid collection. No fluid collection is observed within the left upper quadrant. There is residual splenic tissue that measures 5 cm in diameter with Hounsfield units 62. The stomach fundus extends up into the subdiaphragmatic location. No subdiaphragmatic fluid collection is observed. Surgical drains are noted. Osmar Chavez Jr., MD Chest CT 01/05/16 0000 Signed Impressions: Service Date/Time: Tuesday, January 05, 2016 23:15 - CONCLUSION: 1. Persistent left lower lobar consolidation. Improved consolidative infiltrates in the right lower lung. 2. Interval increase size bilateral pleural effusions , left greater than right. Osmar Alegria MD Celiac/Hepatic Arteriogram 12/27/15 0000 Signed Impressions: Service Date/Time: December 13:41 - CONCLUSION: 1. No active GI bleed identified. Robert Mckinney MD Abdomen X-Ray 12/18/15 0000 Signed Impressions: Service Date/Time: Friday, December 18, 2015 16:05 - CONCLUSION: Feeding tube tip is at the gastric antrum. Arnaldo Elias MD Head CT 12/02/15 1013 Signed Impressions: Service Date/Time: Wednesday, December 02, 2015 11:00 - CONCLUSION: 1. No intracranial abnormality is seen. 2. Air-fluid level in the right maxillary sinus. Arnaldo Reyes MD Physical Exam GENERAL: On vent , awake fully alert SKIN: no jaundice. Most of pt's anasarca has resolved HEENT: no icterus, no nasal discharge NECK: Trach in place CARDIOVASCULAR: systolic murmur in base of heart RESPIRATORY/CHEST: few rhonchi on auscultation. GASTROINTESTINAL: dressing in place Stoma with brown stool soft, thick Incision packed minimal amount of serous drainage GENITOURINARY: Sandoval catheter in place with clear light yellow urine with sediment MUSCULOSKELETAL: Extremities no cyanosis, + 1 edema on BLE RUE with with VAC LUE with dressignin place NEUROLOGICAL: fully awake and alert , makes eye contact and follows commands communicates appropiately smiles LINES: NO evidence of infection in PIV R foot L foot PIV just put in Assessment & Plan Remarks Sepsis related to Cdiff and Intra abdominal peritonitis. - sp subtotal colectomy and ileostomy SP colon perfocation and intraperitoneal gross contamination Cdiff Colitis. vs ischemia RUE severe nec fasc due to MSSA - clinically resolved infx, poor healing Recurretn life threatening upper GI bleeding 2/2 bleeding ulcers: stopped Persistent leukocytosis - improving C. parapsilosa fungemia ? sourece intraabd vs (less likely) line - repeat BC negative - no fungal endophalmitis - Dr Parker help appreciated Low grade coag negative staph bacteremia, 1/4 bottles - probably contaminant; would not Rx at this point sp thoracocenthesis New fever and leukocytosis: persistent ? knew PNA - growing Stenotroph malto PLAN: change cefpeime, to fortaz repeat sputum clx If cont to have unexplained fever/worsening .lekocytosis will get CT A/p dw Argelia Carreno MD Feb 12, 2016 19:17
[2016-02-12] MEDS: cefTAZidime INJ 2,000 MG in SODIUM CHLORIDE 0.9% INJ 100 ML IV SCH (20:43)
[2016-02-13] VITALS (16 sets, daily range): BP systolic 95–168; BP diastolic 55–94; PULSE 81–114; RESP 17–30; TEMP 97.9–98.4; O2SAT 92–100
[2016-02-13] MEDS: oxyCODONE HCL ORAL CONC 20 MG/ML SYRINGE PO SCH ×6 (00:07→20:18)
[2016-02-13] MEDS: FREE WATER G-TUBE SCH ×3 (01:00→17:00)
[2016-02-13] MEDS: FUROSEMIDE 20 MG/2 ML VIAL IV PUSH SCH ×4 (03:13→20:19)
[2016-02-13] MEDS: CHLORHEXIDINE GLUCONATE 2 % 1 PACK (2 CLOTHS) TOP SCH (03:13)
[2016-02-13] MEDS: cefTAZidime INJ 2,000 MG in SODIUM CHLORIDE 0.9% INJ 100 ML IV SCH ×3 (03:13→20:18)
[2016-02-13 05:05] LABS: MEAN CELL VOLUME 91.4 FL (80.0-100.0); MEAN CORPUSCULAR HEMOGLOBIN 28.9 PG (27.0-34.0); MEAN CORPUSCULAR HGB CONC 31.7 % (32.0-36.0); PLATELET COUNT 648 TH/MM3 (150-450); RED BLOOD COUNT 2.63 MIL/MM3 (4.50-5.90); RED CELL DISTRIBUTION WIDTH 16.2 % (11.6-17.2); REVIEW FLAG FINAL; WHITE BLOOD COUNT 19.5 TH/MM3 (4.0-11.0)
[2016-02-13] MEDS: METOPROLOL TARTRATE 25 MG TAB TUBE SCH ×4 (05:10→22:46)
[2016-02-13] MEDS: PANTOPRAZOLE SODIUM 40 MG VIAL IV PUSH SCH ×2 (05:10→17:32)
--- NOTE | 2016-02-13 05:25 | RADRPT ---
EXAM DATE/TIME: 02/13/2016 04:25 [facility] COMPARISON: CHEST SINGLE AP, February 11, 2016, 5:41. INDICATIONS : Respiratory failure MEDICAL HISTORY : Hepatitis C. Cardiovascular disease. Hypertension SURGICAL HISTORY : Tracheostomy ENCOUNTER: Subsequent ACUITY: 4 - 6 days PAIN SCORE: Non-responsive. LOCATION: Bilateral chest FINDINGS: 2 AP semierect views of the chest were obtained again demonstrating a tracheostomy tube in place. Abn ormal opacity remains at the left lung base with obscuration left hemidiaphragm. Right lung remains c lear. The heart size remains mildly enlarged. There are multiple overlying electrocardiogram leads. CONCLUSION: 1. No significant change. Consolidative opacity remains in the left lung base which could represent i nfiltrate and/or effusion. 2. Cardiomegaly is again noted. Owen Arzola MD on February 13, 2016 at 5:23 Board Certified Radiologist. This report was verified electronically.
[2016-02-13 05:28] LABS: ALKALINE PHOSPHATASE 480 U/L (45-117); ALT (GPT) 48 U/L (12-78); ANION GAP 8 MEQ/L (5-15); AST (GOT) 61 U/L (15-37); BICARBONATE 27.6 MEQ/L (21.0-32.0); BLOOD UREA NITROGEN 57 MG/DL (7-18); CHLORIDE 108 MEQ/L (98-107); GLOMERULAR FILTRATION RATE 74 ML/MIN (>89); SODIUM (NA) 144 MEQ/L (136-145); TOTAL BILIRUBIN ADULT 0.6 MG/DL (0.2-1.0)
[2016-02-13] MEDS: FERROUS SULFATE 300 MG /5ML UDC TUBE SCH ×2 (07:33→20:19)
[2016-02-13] MEDS: MULTIVITAMINS LIQUID 5 ML UDC TUBE SCH (07:33)
[2016-02-13] MEDS: TAMSULOSIN HCL 0.4 MG CAP PO SCH (07:34)
[2016-02-13] MEDS: SILVER SULFADIAZINE 1% CR 400 GM JAR TOPICAL SCH (09:00)
[2016-02-13] MEDS: NEOMYCIN/POLYMYXIN/BACITRACIN OINT 15 GM TUBE TOPICAL SCH ×2 (09:00→20:19)
[2016-02-13] MEDS: POVIDONE IODINE 10% OINT 30 GM TUBE TOPICAL SCH (09:00)
--- NOTE | 2016-02-13 11:10 | HHI.PR ---
Subjective Subjective Notes Up to chair Appears "zoned out" Slow to respond Daughter at bedside Objective Vitals/I&O Vital Signs Date Time Temp Pulse Resp B/P Pulse Ox O2 Delivery O2 Flow Rate FiO2 02/13/16 10:00 104 02/13/16 08:26 94 40 02/13/16 08:00 98.0 20 168/94 02/13/16 07:00 Mechanical Ventilator Labs Laboratory Tests Test 02/13/16 04:45 White Blood Count 19.5 Red Blood Count 2.63 Hemoglobin 7.6 Hematocrit 24.0 Mean Corpuscular Volume 91.4 Mean Corpuscular Hemoglobin 28.9 Mean Corpuscular Hemoglobin 31.7 Concent Red Cell Distribution Width 16.2 Platelet Count 648 Mean Platelet Volume 9.4 Sodium Level 144 Potassium Level 4.0 Chloride Level 108 Carbon Dioxide Level 27.6 Anion Gap 8 Blood Urea Nitrogen 57 Creatinine 1.05 Estimat Glomerular Filtration 74 Rate Random Glucose 99 Calcium Level 9.2 Phosphorus Level 3.2 Magnesium Level 2.0 Total Bilirubin 0.6 Aspartate Amino Transf 61 (AST/SGOT) Alanine Aminotransferase 48 (ALT/SGPT) Alkaline Phosphatase 480 Total Protein 5.9 Albumin 1.1 Date/Time Procedure Status Source Growth 02/13/16 02:30 Gram Stain Received Sputum Endotracheal Pending 02/13/16 02:30 Sputum Culture Received Sputum Endotracheal Pending 02/08/16 12:00 Gram Stain - Final Complete Sputum Endotracheal 02/08/16 12:00 Sputum Culture - Final Complete Stenotrophomonas Maltophilia Radiology Last Impressions Chest X-Ray 12/28/15 0000 Signed Impressions: Service Date/Time: Monday, December 28, 2015 14:23 - CONCLUSION: Large left pleural effusion and left lung base consolidation. Freddy Connor MD Abdomen/Pelvis CT 12/19/15 0000 Signed Impressions: Service Date/Time: Saturday, December 19, 2015 10:57 - CONCLUSION: 1. Adjacent volume pneumoperitoneum is observed consistent with perforation of a hollow viscus. This is presumably colonic in origin due to the diffuse inflammatory process involving the colon. I do not clearly identify the source of the pneumoperitoneum however. There is mild dilatation of the small bowel likely an ileus in nature. A significant volume of ascitic fluid is noted. 2. Bibasilar atelectasis and bilateral pleural effusions. 3. Small pericardial effusion. 4. Small bilateral nonobstructing renal calculi. 5. I spoke with Dr. Sanchez concerning the findings. Osmar Chavez Jr., MD Abdomen X-Ray 12/18/15 0000 Signed Impressions: Service Date/Time: Friday, December 18, 2015 16:05 - CONCLUSION: Feeding tube tip is at the gastric antrum. Arnaldo Elias MD Chest CT 12/14/15 0000 Signed Impressions: Service Date/Time: Monday, December 14, 2015 06:12 - CONCLUSION: 1. Cardiomegaly with bilateral consolidation, likely CHF. Pneumonia cannot be excluded. 2. Small right pleural effusion. Wojciech Lockhart MD Head CT 12/02/15 1013 Signed Impressions: Service Date/Time: Wednesday, December 02, 2015 11:00 - CONCLUSION: 1. No intracranial abnormality is seen. 2. Air-fluid level in the right maxillary sinus. Arnaldo Reyes MD Cardiovascular: Regular Lungs: Clear Abdomen: Other (see below ) Extremities: No edema Narrative Exam RIGHT arm dressing in place Abd: Midline incision--- with packing; ileostomy with stool A/P Problem List: (1) Dependent on ventilator (2) Open wound of abdomen (3) Ileostomy in place (4) Jejunostomy tube present (5) S/P total colectomy (6) Acute colitis (7) Gastrostomy tube in place Assessment and Plan 55 year old male s/p ex lap; s/p colectomy; J tube placement and would vac change -Nauseous yesterday; TF restarted today; AAT -Elevated WBC to 22K today; afebrile -Continue Primapore dressing BID and PRN to midline incision ----continue packing to superior and inferior areas of incision -Agree with ammonia, EEG and Head CT -Spoke with Dr. Poole about AMS Attending Statement pt seen at bedside altered ms ct pending labs pending Attestation The exam, history, and the medical decision-making described in the above note were completed with the assistance of the mid-level provider. I reviewed and agree with the findings presented. I attest that I had a [id number] encounter with the patient on the same day, and personally performed and documented my assessment and findings in the medical record. Problem Qualifiers (1) Open wound of abdomen: Qualified Code: S31.109D - Open wound of abdomen, subsequent encounter Lurdes Felix Feb 13, 2016 11:10 Bebo Verdin MD Feb 25, 2016 22:59
[2016-02-13] MEDS: HYDROmorphone HCL PF 2 MG/ML VIAL IV PUSH PRN ×2 (11:30→15:17)
--- NOTE | 2016-02-13 12:48 | RADRPT ---
EXAM DATE/TIME: 02/13/2016 12:12 [facility] COMPARISON: CT BRAIN W/O CONTRAST, December 02, 2015, 11:00. INDICATIONS : Patient becoming more lethargic over the past two days. RADIATION DOSE: 56.35 CTDIvol (mGy) MEDICAL HISTORY : Cardiovascular disease. Hypertension. Hepatitis C. SURGICAL HISTORY : Splenectomy. Tonsillectomy.Ortho ENCOUNTER: Initial ACUITY: 2 days PAIN SCALE: Non-responsive LOCATION: cranial TECHNIQUE: Multiple contiguous axial images were obtained of the head. Using automated exposure control and adj ustment of the mA and/or kV according to patient size, radiation dose was kept as low as reasonably a chievable to obtain optimal diagnostic quality images. FINDINGS: CEREBRUM: The ventricles are normal for age. No evidence of midline shift, mass lesion, hemorrhage or acute in farction. No extra-axial fluid collections are seen. POSTERIOR FOSSA: The cerebellum and brainstem are intact. The 4th ventricle is midline. The cerebellopontine angle i s unremarkable. EXTRACRANIAL: The visualized portion of the orbits is intact. Fluid opacifies the left mastoid air cells. This is a new finding. No bony destruction or expansion. An air-fluid level within the right maxillary sinus i s unchanged. Air-fluid level within the right sphenoid sinus is new. SKULL: The calvaria is intact. No evidence of skull fracture. CONCLUSION: 1. No acute intracranial abnormality. 2. New opacification of the left mastoid air cells. Clinical evaluation for acute left mastoiditis brice ggested. Osmar Chavez Jr., MD on February 13, 2016 at 12:44 Board Certified Radiologist. This report was verified electronically.
[2016-02-13] MEDS: HYDROmorphone HCL PF 4 MG/ML VIAL IV PUSH PRN (13:52)
--- NOTE | 2016-02-13 15:34 | HHI.HCPN ---
Reason for visit a. To assist with evaluation and management of symptoms including: pain, malnutrition, wounds,AMS b. To assist medical decision maker(s) with: better understanding of current medical conditions; weighing benefits/burdens of medical treatment options; making medical treatment decisions. . Subjective/Interval History . Patient seen and assessed in room 1317. Also present patient's daughter (Kezia ) and nurse. Patient is sitting upright in chair. He is awake but appears "out of it". He does not attempt to respond to questions by mouthing words. Spoke with Dr. Poole regarding patient's altered mental status. CT head today showed no acute intracranial abnormalities, new opacification of the left mastoid air cells, clinical evaluation for acute left mastoiditis suggested. Ammonia level at 31. EEG pending. Afebrile. WBC remains elevated at 19.5 by trending downward. Sputum culture on 02/08/16 grew Stenotrophomonas Maltophilia. Blood cultures 02/08/16 negative. Urine culture 02/03/16 negative. Infectious disease following - repeat sputum culture ordered. Antibiotic changed from Cefepime to Fortaz. ID will consider CT abdomen/pelvis if the patient continues to have unexplained fevers/worsening leukocytosis. Follow-up chest x-ray 02/13/16: Showing no significant change, consolidative opacity remains in the left lung base which could represent infiltrate and/or effusion, cardiomegaly is again noted. Dr. Pedro saw and evaluated the patient on 02/12/16. Plan to take the patient to the OR later this week for upper extremity wound debridement if he remains stable and is cleared by his attending physician. Patient has a history of chronic pain. Probable causes of plan include multiple surgeries, invasive lines, Sandoavl, ostomy, NG tube, tracheostomy, immobility, wounds, bedbound status etc. On fentanyl patch 125mcg/h q3d and oxycodone 20mg per tube q4h scheduled. Scheduled acetaminophen was discontinued on 01/16/16 given h/o Hep C with hepatic fibrosis. Dilaudid 2-4mg Iv q2h PRN for breakthrough pain. 24 hour PRN requirement: Dilaudid 4 mg IV 2, Dilaudid 2 mg IV 1, Oxycodone 20 mg PO 6 . Family/friend interactions . Spoke to patient's daughter, Kezia, at patient's bedside. Updated was provided on the patient's clinical condition, reviewed recent diagnostic results and clarified medical treatment goals. Spoke to Dr. Poole prior to meeting with the patient and his daughterplan for CT head, ammonia level, EEG, follow-up sputum culture pending. . Advance Directives Living Will: Never completed Health Care Surrogate: Never completed Durable Power of Manager Behavior: Never completed Advance Directive Specifics Health Care Surrogate(s): There is no designated health care surrogate. Per [place] statutes, in the absence of written advanced directives healthcare proxy falls to the patient's , Gopi Smith. . Documented care wishes: None available , Objective Vital Signs Date Time Temp Pulse Resp B/P Pulse Ox O2 Delivery O2 Flow Rate FiO2 02/13/16 11:45 100 100 02/13/16 10:00 104 02/13/16 08:26 94 40 02/13/16 08:26 40 02/13/16 08:00 98.0 94 20 168/94 100 02/13/16 08:00 40 02/13/16 08:00 94 02/13/16 07:00 100 Mechanical Ventilator 40 02/13/16 06:00 86 02/13/16 05:53 97 40 02/13/16 05:26 15 02/13/16 04:00 40 02/13/16 04:00 97.9 87 19 128/71 98 02/13/16 04:00 86 02/13/16 01:34 98 40 02/13/16 00:00 40 02/13/16 00:00 81 02/13/16 00:00 98.2 87 17 95/55 99 02/12/16 22:00 106 02/12/16 21:58 94 40 02/12/16 20:32 100 40 02/12/16 20:00 40 02/12/16 20:00 122 02/12/16 20:00 99.2 122 28 118/65 99 02/12/16 19:00 99 Mechanical Ventilator 40 02/12/16 18:00 112 02/12/16 16:00 132 02/12/16 16:00 40 02/12/16 16:00 98.2 132 33 134/70 98 02/12/16 15:39 94 40 Intake & Output 02/13/16 02/13/16 07:00 19:00 Intake Total 656 ml Output Total 1050 ml Balance -394 ml IV Total 315 ml Tube Feeding 221 ml Other 120 ml Output Urine Total 950 ml Stool Total 100 ml . Physical Exam CONSTITUTIONAL/GENERAL: This is a frail chroncially ill middle-aged male patient on T piece via trach. TUBES/LINES/DRAINS: PIV 1, ostomy, trach, Sandoval, J tube SKIN: Skin appears thin and fragile. Upper extremities wrapped, dressing clean dry and intact. HEAD: Atraumatic. Normocephalic. EYES: No injection or drainage. No sclerae icterus. ENT: Hearing appears normal. Nose without bleeding or purulent drainage. NECK: Trachea midline. CARDIOVASCULAR: Regular rate and rhythm RESPIRATORY/CHEST: Trach to vent, tolerated CPAP 2 hours this morning. Scattered rhonchi. GASTROINTESTINAL: Ostomy with brown colored stool. GENITOURINARY: Without palpable bladder distension. Sandoval catheter in place. MUSCULOSKELETAL: Extremities without clubbing or cyanosis. Atrophy. NEUROLOGICAL: Less alert today. Appears "out of it". PSYCHIATRIC: No anxiety or agitation observed. Flat affect . Diagnostic Tests Laboratory Laboratory Tests Test 02/11/16 02/11/16 02/12/16 02/13/16 04:32 15:50 03:52 04:45 White Blood Count 20.9 TH/MM3 22.5 TH/MM3 19.5 TH/MM3 (4.0-11.0) (4.0-11.0) (4.0-11.0) Red Blood Count 2.62 MIL/MM3 2.55 MIL/MM3 2.63 MIL/MM3 (4.50-5.90) (4.50-5.90) (4.50-5.90) Hemoglobin 7.7 GM/DL 7.4 GM/DL 7.6 GM/DL (13.0-17.0) (13.0-17.0) (13.0-17.0) Hematocrit 23.8 % 23.1 % 24.0 % (39.0-51.0) (39.0-51.0) (39.0-51.0) Mean Corpuscular Volume 91.0 FL 90.7 FL 91.4 FL (80.0-100.0) (80.0-100.0) (80.0-100.0) Mean Corpuscular Hemoglobin 29.6 PG 29.1 PG 28.9 PG (27.0-34.0) (27.0-34.0) (27.0-34.0) Mean Corpuscular Hemoglobin 32.5 % 32.1 % 31.7 % Concent (32.0-36.0) (32.0-36.0) (32.0-36.0) Red Cell Distribution Width 16.4 % 16.2 % 16.2 % (11.6-17.2) (11.6-17.2) (11.6-17.2) Platelet Count 570 TH/MM3 602 TH/MM3 648 TH/MM3 (150-450) (150-450) (150-450) Mean Platelet Volume 9.4 FL 9.4 FL 9.4 FL (7.0-11.0) (7.0-11.0) (7.0-11.0) Neutrophils (%) (Auto) 68.6 % 68.1 % (16.0-70.0) (16.0-70.0) Lymphocytes (%) (Auto) 12.1 % 12.4 % (9.0-44.0) (9.0-44.0) Monocytes (%) (Auto) 15.5 % 15.2 % (0.0-8.0) (0.0-8.0) Eosinophils (%) (Auto) 2.6 % (0.0-4.0) 3.3 % (0.0-4.0) Basophils (%) (Auto) 1.2 % (0.0-2.0) 1.0 % (0.0-2.0) Neutrophils # (Auto) 14.3 TH/MM3 15.3 TH/MM3 (1.8-7.7) (1.8-7.7) Lymphocytes # (Auto) 2.5 TH/MM3 2.8 TH/MM3 (1.0-4.8) (1.0-4.8) Monocytes # (Auto) 3.2 TH/MM3 3.4 TH/MM3 (0-0.9) (0-0.9) Eosinophils # (Auto) 0.5 TH/MM3 0.7 TH/MM3 (0-0.4) (0-0.4) Basophils # (Auto) 0.2 TH/MM3 0.2 TH/MM3 (0-0.2) (0-0.2) CBC Comment AUTO DIFF AUTO DIFF Differential Total Cells 100 100 Counted Neutrophils % (Manual) 73 % (16-70) 62 % (16-70) Band Neutrophils % 1 % (0-6) 11 % (0-6) Lymphocytes % 9 % (9-44) 11 % (9-44) Monocytes % 13 % (0-8) 10 % (0-8) Eosinophils % 2 % (0-4) 2 % (0-4) Basophils % 1 % (0-2) Neutrophils # (Manual) 15.7 TH/MM3 17.3 TH/MM3 (1.8-7.7) (1.8-7.7) Metamyelocytes 1 % (0-1) 3 % (0-1) Differential Comment FINAL DIFF FINAL DIFF MANUAL MANUAL Platelet Estimate HIGH (NORMAL) HIGH (NORMAL) Platelet Morphology Comment NORMAL NORMAL (NORMAL) (NORMAL) Acanthocytes OCC (NORMAL) Keratocytes OCC (NORMAL) Sodium Level 144 MEQ/L 145 MEQ/L 144 MEQ/L (136-145) (136-145) (136-145) Potassium Level 4.0 MEQ/L 3.8 MEQ/L 4.0 MEQ/L (3.5-5.1) (3.5-5.1) (3.5-5.1) Chloride Level 106 MEQ/L 109 MEQ/L 108 MEQ/L (98-107) (98-107) (98-107) Carbon Dioxide Level 30.0 MEQ/L 25.8 MEQ/L 27.6 MEQ/L (21.0-32.0) (21.0-32.0) (21.0-32.0) Anion Gap 8 MEQ/L (5-15) 10 MEQ/L (5-15) 8 MEQ/L (5-15) Blood Urea Nitrogen 50 MG/DL (7-18) 53 MG/DL (7-18) 57 MG/DL (7-18) Creatinine 0.83 MG/DL 0.94 MG/DL 1.05 MG/DL (0.60-1.30) (0.60-1.30) (0.60-1.30) Estimat Glomerular Filtration 97 ML/MIN (>89) 84 ML/MIN (>89) 74 ML/MIN (>89) Rate Random Glucose 97 MG/DL 135 MG/DL 99 MG/DL (74-106) (74-106) (74-106) Calcium Level 9.0 MG/DL 9.1 MG/DL 9.2 MG/DL (8.5-10.1) (8.5-10.1) (8.5-10.1) Phosphorus Level 2.7 MG/DL 3.1 MG/DL 3.2 MG/DL (2.5-4.9) (2.5-4.9) (2.5-4.9) Magnesium Level 1.8 MG/DL 1.9 MG/DL 2.0 MG/DL (1.5-2.5) (1.5-2.5) (1.5-2.5) Total Bilirubin 0.6 MG/DL 0.6 MG/DL (0.2-1.0) (0.2-1.0) Aspartate Amino Transf 65 U/L (15-37) 61 U/L (15-37) (AST/SGOT) Alanine Aminotransferase 56 U/L (12-78) 48 U/L (12-78) (ALT/SGPT) Alkaline Phosphatase 456 U/L 480 U/L (45-117) (45-117) Total Protein 5.6 GM/DL 5.9 GM/DL (6.4-8.2) (6.4-8.2) Albumin 1.1 GM/DL 1.1 GM/DL (3.4-5.0) (3.4-5.0) Myelocytes 1 % (0-0) Nucleated Red Blood Cells 1 /100 WBC (0-0) Test 02/13/16 12:37 Ammonia 31 MCMOL/L (11-32) . Result Diagram: 02/13/16 0445 02/13/16 0445 Microbiology Microbiology Date/Time Procedure Status Source Growth 02/13/16 02:30 Gram Stain - Final Resulted Sputum Endotracheal 02/13/16 02:30 Sputum Culture Resulted Sputum Endotracheal Pending . Imaging Last 72 hours Impressions Chest X-Ray 02/13/16 0600 Signed Impressions: Service Date/Time: Saturday, February 13, 2016 04:25 - CONCLUSION: 1. No significant change. Consolidative opacity remains in the left lung base which could represent infiltrate and/or effusion. 2. Cardiomegaly is again noted. Owen Arzola MD Head CT 02/13/16 0000 Signed Impressions: Service Date/Time: Saturday, February 13, 2016 12:12 - CONCLUSION: 1. No acute intracranial abnormality. 2. New opacification of the left mastoid air cells. Clinical evaluation for acute left mastoiditis suggested. Osmar Chavez Jr., MD Chest X-Ray 02/11/16 0600 Signed Impressions: Service Date/Time: Thursday, February 11, 2016 05:41 - CONCLUSION: Rotated study demonstrating no significant interval change. Owen Arzola MD . Procedures 12/02/15: Intubated 12/02/15: NG tube placed 12/02/15: Right subclavian central line placed 12/14/15: Left IJ central line placement BEV PEG tube Ileostomy 12/28/15: Tracheostomy 12/30/15: Right subclavian central venous line placed 01/05/16: Right axillary arterial line placement 01/05/16: Right IJ central line placement 01/05/16: Bronchoscopy 01/17/16: EGD . . . 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 Probable causes of plan include multiple surgeries, invasive lines, Sandoval, ostomy, NG tube, tracheostomy , immobility, wounds, bedbound status etc. On fentanyl patch 125mcg/h q3d and oxycodone 20mg per tube q4h scheduled. Scheduled acetaminophen was discontinued on 01/16/16 given h/o Hep C with hepatic fibrosis. Dilaudid 2-4mg Iv q2h PRN for breakthrough pain. 24 hour PRN requirement: Dilaudid 4 mg IV 2, Dilaudid 2 mg IV 1, Oxycodone 20 mg PO 6. . (2) Malnutrition 0-10 Scale: Unable to quantify Comment: Tolerating TF 20cc/ hour status post some nausea yesterday . (3) Wounds, multiple Comment: Dr. Pedro saw and evaluated the patient on 02/12/16. Plan to take the patient to the OR later this week for upper extremity wound debridement if he remains stable and is cleared by his attending physician. . (4) Altered mental status 0-10 Scale: Unable to quantify (He is awake but appears "out of it". He does not attempt to respond to questions by mouthing words. Spoke with Dr. Poole regarding patient's altered mental status. CT head today showed no acute intracranial abnormalities, new opacification of the left mastoid air cells, clinical evaluation for acute left mastoiditis suggested. Ammonia level at 31. EEG pending.) Pertinent Non-Medical Issues Psychosocial:Patient was born in [facility], moving to [place] at a young age. He has 2 siblings who live locally (Feroz and Janeen). 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 The patient met his current (Gopi Smith) through mutual friends and they have now been for approximately 20 years. The patient has 1 adult daughter (Kezia) from a previous relationship. She is 30 years old. Spiritual:No hoahaoism affiliation Legal: There is no designated health care surrogate. Per [place] statutes, in the absence of written advanced directives healthcare proxy falls to the patient 's , Gopi Smith. Ethical issues impacting care: None at this time. . Important Contacts Gopi Smith, spouse: [phone] Kezia Starks, daughter: [phone] . . Prognosis Patient is a 55 year old male with a long history of chronic illnesses. PMH is significant for Hep C, NIGEL, gout, RA, HTN, chronic pain, and migraines. Patient was admitted on 12/02/15 with sepsis due to Staph Aureus hand infection and E. Coli bacteriemia. Patient has been to the OR multiple times for GI bleed. Patient has had persistent anemia/thrombocytopenia requiring multiple transfusions. S/p tracheotomy, ileostomy, BEV 2, and G- tube, patient remains critically ill with an overall poor prognosis. . Code Status: Full Code Plan * FULL CODE * Decision-making: The patient is currently not capacitated to participate in decisions related to medical treatment goals. There is no designated health care surrogate. Per [place] statutes, in the absence of written advanced directives healthcare proxy falls to the patient's . HCP: GOPI CECILE ( ). * Goals: GOALS REMAIN AGGRESSIVE. However, patient's daughter and agree the patient would not want to be kept alive on machines. They do not feel he is at the point where they need to consider stopping care because he has "gotten through so much are ready" They are very frustrated that he mental status has deteriorated in the past 7 days, also concerned for suspected infection. * Patient will require placement at a SNF for rehabilitation upon discharge. Patient is self pay.[employer] and [facility] applications were submitted 01/16/16. * Discussed with patient's nurse, Taylor RUIZ and Dr. Poole. * Symptom managementaltered mental status: Patient is awake but appears "out of it". He does not attempt to respond to questions by mouthing words. Spoke with Dr. Poole regarding patient's altered mental status. CT head today showed no acute intracranial abnormalities, new opacification of the left mastoid air cells, clinical evaluation for acute left mastoiditis suggested. Ammonia level at 31. EEG pending. * Symptom managementpain: Patient has a history of chronic pain. Probable causes of plan include multiple surgeries, invasive lines, Sandoval, ostomy, NG tube, tracheostomy, immobility, wounds, bedbound status etc. On fentanyl patch 125mcg/h q3d and oxycodone 20mg per tube q4h scheduled. Scheduled acetaminophen was discontinued on 01/16/16 given h/o Hep C with hepatic fibrosis. Dilaudid 2- 4mg Iv q2h PRN for breakthrough pain. 24 hour PRN requirement: Dilaudid 4 mg IV 2, Dilaudid 2 mg IV 1, Oxycodone 20 mg PO 6. * Symptom managementmalnutrition: Tolerating Jevity 1.5 @ 20ml/hour status post some nausea yesterday. * Symptom managementwounds: Dr. Pedro saw and evaluated the patient on . Plan to take the patient to the OR later this week for upper extremity wound debridement if he remains stable and is cleared by his attending physician. * Palliative care will continue to follow this patient throughout his hospitalization to establish trust, assist with symptom management and clarification of medical treatment goals. . Attestation To help prompt me to consider important information that might be impacting today's encounter and assessment, information from prior notes written by myself or my colleagues may have been "brought forward" into today's note. My signature on this note, however, is an attestation that I personally performed the exam, history, and/or decision-making noted today, and, unless otherwise indicated, the interactions with patient, family, and staff as well as the review of records all occurred today. I also attest that the listed assessment and stated plan reflect my best clinical judgment today based on the combination of historical information, prior notes, and today's exam/ interactions. When time spent is documented, it refers only to time spent today by the signer, or if indicated, combined time spent today by collaborating physician/nurse practitioner. . Leah Pop Feb 13, 2016 15:34
--- NOTE | 2016-02-13 15:55 | HHI.CCPN ---
Subjective Remarks/Hospital Course 55-year-old male brought by EMS with altered mental status. He has history of chronic opiate medications including methadone and morphine that he takes for pain management and hence they gave him Narcan IV which brought the GCS up to 13. The blood glucose was 74. He has open wounds from his right upper and bilateral lower extremities. He has history of hepatitis C. Last week he was pealing and eating shrimps. Bedside blood sugar was 76 in the ER. He was tachycardic in 1 teens and was intubated in the ED for airway protection. Admitted to ICU with sepsis due to Staph Aureus hand infection and E. Coli bacteriemia. Hospital course complicated by perforated ascending colon with extended right hemicolectomy, primary ileocolic anastamosis, open abdomen, septic shock, acute hypoxic and hypercarbic respiratory failure 12/19. Taken back to the OR 12/20 afternoon for washout and completion colectomy. 12/25 Hemoglobin dropped to 4.1. Noted to have bloody drainage from G-tube and dorsal ileostomy with black stool output due to 2 gastric ulcers bleeding, stomach a significant part had decreased discoloration indicating probable ischemia. s/p epi injection and cauterization. 12/27Tracheostomy placed. 01/06: Underwent exploratory laparotomy with findings of bleeding gastric ulcer which was oversewn by Dr. Verdin abdomen left open with wound VAC in place. Now closed. On trach collar occasionally alternation intermittently with a CPAP. 02/10 Tmax 100.0. The patient has been maintain on CPAP 15 over 5/24 hours without difficulty. O2 saturations greater than 92%. Plan for trach collar trials today. 02/11 Tmax 98.4. The patient was unable to begin trach collar trials yesterday. The patient became tachypnea, RR 50's on CPAP at 4:30 yesterday requiring mechanical ventilation being placed on a rate.Patient has been maintained on mechanical ventilation overnight without any respiratory distress. O2 saturation remains 9798%. No episodes of nausea last night the patient tolerated tube feeds at 50/cc, will advance to goal today. 02/12 Afebrile. This a.m., upon examination, the patient spontaneously had eyes open but was not responding to commands as previously. Noted facial twitching eye twitching specifically the right side of face. The patient was not mouthing any words. Concern for subclinical seizure activity, or elevated ammonia levels. Ammonia level drawn, CT scan obtained EEG pending. Patient also did not tolerate tube feeds overnight. Objective Vital Signs Date Time Temp Pulse Resp B/P Pulse Ox O2 Delivery O2 Flow Rate FiO2 02/13/16 11:45 100 100 02/13/16 10:00 104 02/13/16 08:00 98.0 20 168/94 02/13/16 07:00 Mechanical Ventilator Intake and Output 02/12/16 02/12/16 02/13/16 08:00 16:00 00:00 Intake Total 704 ml 577 ml 303 ml Output Total 850 ml 670 ml 550 ml Balance -146 ml -93 ml -247 ml Result Diagram: 02/13/16 0445 02/13/16 0445 Imaging Last Impressions Chest X-Ray 02/11/16 0600 Signed Impressions: Service Date/Time: Thursday, February 11, 2016 05:41 - CONCLUSION: Rotated study demonstrating no significant interval change. Owen Arzola MD Upper Extremity Ultrasound 01/30/16 0000 Signed Impressions: Service Date/Time: Saturday, January 30, 2016 11:18 - CONCLUSION: Limited exam without thrombus identified. Raudel Mckinney MD FACR Thoracentesis 01/28/16 0000 Signed Impressions: Service Date/Time: Thursday, January 28, 2016 12:54 - CONCLUSION: Uncomplicated CT-guided thoracentesis. Ramone Hall MD Abdomen/Pelvis CT 01/23/16 0800 Signed Impressions: Service Date/Time: Saturday, January 23, 2016 09:05 - CONCLUSION: Relative to the prior study the marked distention of the stomach is reduced. There is a persistent 5 cm left upper quadrant sub-diaphragmatic fluid collection and drain in the left upper quadrant. Patient is post splenectomy. Jejunostomy is in place and ostomy is noted in the right lower abdomen. No free fluid or free air is appreciated and there is no evidence of obstruction. Bilateral pleural effusions persists small but slightly larger on the right with left lower lobe consolidation. Jared Medina MD ADDENDUM: I have reviewed the images with respect to her request made for left subdiaphragmatic drainage of a fluid collection. No fluid collection is observed within the left upper quadrant. There is residual splenic tissue that measures 5 cm in diameter with Hounsfield units 62. The stomach fundus extends up into the subdiaphragmatic location. No subdiaphragmatic fluid collection is observed. Surgical drains are noted. Osmar Chavez Jr., MD Chest CT 01/05/16 0000 Signed Impressions: Service Date/Time: Tuesday, January 05, 2016 23:15 - CONCLUSION: 1. Persistent left lower lobar consolidation. Improved consolidative infiltrates in the right lower lung. 2. Interval increase size bilateral pleural effusions , left greater than right. Osmar Alegria MD Celiac/Hepatic Arteriogram 12/27/15 0000 Signed Impressions: Service Date/Time: December 13:41 - CONCLUSION: 1. No active GI bleed identified. Robert Mckinney MD Abdomen X-Ray 12/18/15 0000 Signed Impressions: Service Date/Time: Friday, December 18, 2015 16:05 - CONCLUSION: Feeding tube tip is at the gastric antrum. Arnaldo Elias MD Head CT 12/02/15 1013 Signed Impressions: Service Date/Time: Wednesday, December 02, 2015 11:00 - CONCLUSION: 1. No intracranial abnormality is seen. 2. Air-fluid level in the right maxillary sinus. Arnaldo Reyes MD Last 24 hours Impressions Chest X-Ray 02/05/16 0600 Signed Impressions: Service Date/Time: Friday, February 05, 2016 04:11 - CONCLUSION: Worsening/developing effusions and basilar consolidation, currently left worse than right. Arnaldo Elias MD Objective Remarks GENERAL: Middle-aged chronically critically ill, semi-recombinant in recliner chair, right side noted facial twitch, not mouthing words/or responding. HEENT: NCAT. mucous membranes moist. NECK: [address], no active bleeding, no evidence of infection. RESPIRATORY: Normal respiratory rate. Breath sounds present bilaterally, clear without wheezing or rhonchi. CARDIOVASCULAR: Regular, tachycardic. Sinus tach on monitor. No murmurs rubs or gallops. GASTROINTESTINAL: J tube in place with tube feeds running @ 50cc/hr. Gauze dressings in place inferior aspect of midline incision. Ostomy with brown colored stool. MUSCULOSKELETAL: Pitting edema 2+ bilateral feet and hands. Gauze dressing bilateral upper extremity Multiple open wounds in the lower extremity with gauze dressing. NEURO: Awake. Not following my commands today., Not communicating by mouthing words today , continued facial twitching noted, right arm shoulder twitch. 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 Miller). - Trach exchanged 8.0 Shiley with cuff on 01/19 - DuoNeb q6h and as needed -Currently on mechanical ventilation settings 10/.40/500/8, tolerated CPAP 3 hours yesterday. We'll continue daily to alternate sevearal hours between CPAP and mechanical ventilation. - Last CT guided thoracentesis 01/27 - CXR unchanged - Continue fluid mobilization with lasix Leukocytosis - re-cultured 02/07 - - ID following, Dr. Becerra - WBC 19 ->22 today Sputum culture 02/07 Stenotrophonamis Maltophilia Blood Culture 02/07 NGTD Urine Culture 02/02 neg NIGEL - on home CPAP - Tracheostomy - not an issue while tracheostomy in place Hyperkalemia - Resolved - Kayexalate D/Melchor Hypernatremia - continue Free water flushes 200 q8. - Urine eos negative. - Avoiding nephrotoxins. - Monitor BMP - Continue to replete electrolytes per ICU protocol Perforated right colon with ischemic colitis - s/p ex-lap, extended right hemicolectomy with primary ileocolic anastamosis - s/p Ex lap 01/05 for bleeding gastric ulcer - management per GS - no acute issues Nausea - Began 02/10 with resolution, now continues last pm - Acute protein calorie malnutrition - severe - continue Beneprotein 1 packet QID - Prealbumin 14 on 01/26 - Jevity goal rate to 65/hr based on nutritions most recent recommendations, currently at 50cc/hr will advance to goal today - repeat pre-albumin level 6 Chronic hepatitis C - s/p interferon/ribavirin years ago - Liver biopsy 04/14/08 - monitor for liver failure Gastric ulcer disease - EGD 12/26/15 showed 2 large gastric ulcers with active bleeding - status post epinephrine infusion and cauterization - To OR 01/05 with GI bleeding and hemorrhagic shock. - gastrotomy with ligation of gastric ulcer, lysis of adhesions, wound VAC placement - Continue Protonix 40 g IV q12h Acute Anemia - secondary to acute blood loss - Hgb is 7.1 Today and stable - last transfused 1 unit PRBC 02/02 - Melena resolved. - No obvious active bleeding. - Ferrous Sulfate 300mg bid Thrombocytopenia - resolved - Hep PLT ab negative on 12/03 - due to chronic liver disease - no active bleeding Hyperglycemia of Critical Illness - off Insulin drip - Levemir BID on hold, not clinically indicated at this time - Low-dose insulin sliding scale DC Critical illness polyneuropathy -Continue PT, out of bed to chair, functional maintenance of extremities 4 Open wounds,B/L upper extremities multiple stages -Reconsult wound care 02/11 B/L upper extremities -Digits on hand redddened and edematous GI Prophylaxis: -- Protonix IV BID DVT Prophylaxis: - SCDs - No chemical DVT Prophylaxis, OOB to chair and daily functional maintenance of extremities x 4 ACCESS: --PIV x 2. Discuss CONSTRUCTION SUPERVISOR at bedside. Level 2 Physician Fe Poole Problem Qualifiers (1) Respiratory failure: Qualified Code: J96.00 - Acute respiratory failure, unspecified whether with hypoxia or hypercapnia (2) Altered mental status: Qualified Code: R41.0 - Delirium (3) Sepsis: Qualified Code: A41.9 - Sepsis, due to unspecified organism Fe Poole MD Feb 13, 2016 15:55
--- NOTE | 2016-02-13 16:41 | MG ---
cc: JD LANG M.D. Sex: M Date: 02/13/2016 DESCRIPTION: An EEG was obtained on this 55-year-old patient with history of mouth twitching, arm and leg involuntary movements, confusion. The patient is described as awake and drowsy. There is a lot of theta and some delta rhythms bilaterally. A tremendous amount of artifact is seen intermittently along with description of mouth movements. There is some left-sided face twitching as well. During the time of the artifactual activity, there is no obvious underlying rhythmic activity before or any obvious significant slowing after the twitching to suggest an ictal event, though this cannot be excluded. In close relationship to one of the chewing events, there appears to be sharp discharges when some readable EEG activity is noted. The discharge may be focal in the left hemisphere. Photic stimulation did not disclose any obvious change. INTERPRETATION Abnormal EEG because of bilateral slowing suggestive of bi-hemisphere abnormality. Some mouth and face twitching is noted on one occasion, despite the significant amount of artifact, there is some possible sharp discharge shortly or in between the twitching motor activity. The discharge could be of epileptiform significance. There was no distinct ictal pattern but the study is limited because of the excessive amount of artifact. Clinical correlation and follow up EEG is recommended. Jd Lang MD [facility]EN /4:23 PM /4:33 PM
[2016-02-13] MEDS: CHLORHEXIDINE 0.12% (ORAL KIT) 15 ML CUP MT SCH (20:19)
[2016-02-14] VITALS (19 sets, daily range): BP systolic 114–131; BP diastolic 66–75; PULSE 84–112; RESP 20–31; TEMP 98.1–98.9; O2SAT 95–100
[2016-02-14] MEDS: FREE WATER G-TUBE SCH ×3 (00:01→17:21)
[2016-02-14] MEDS: oxyCODONE HCL ORAL CONC 20 MG/ML SYRINGE PO SCH ×6 (00:01→20:05)
[2016-02-14] MEDS: FUROSEMIDE 20 MG/2 ML VIAL IV PUSH SCH ×4 (03:54→20:05)
[2016-02-14] MEDS: CHLORHEXIDINE GLUCONATE 2 % 1 PACK (2 CLOTHS) TOP SCH (03:55)
[2016-02-14] MEDS: cefTAZidime INJ 2,000 MG in SODIUM CHLORIDE 0.9% INJ 100 ML IV SCH ×3 (03:55→20:04)
[2016-02-14 04:30] LABS: AUTOMATED NEUTROPHIL # 11.7 TH/MM3 (1.8-7.7); BASOPHIL # 0.2 TH/MM3 (0-0.2); EOSINOPHIL # 0.8 TH/MM3 (0-0.4); EOSINOPHIL % 4.3 % (0.0-4.0); HEMATOCRIT 23.2 % (39.0-51.0); LYMPH % 13.5 % (9.0-44.0); LYMPHOCYTE # 2.5 TH/MM3 (1.0-4.8); MEAN CELL VOLUME 93.4 FL (80.0-100.0); MEAN CORPUSCULAR HEMOGLOBIN 29.8 PG (27.0-34.0); MEAN CORPUSCULAR HGB CONC 31.9 % (32.0-36.0); MONO % 17.4 % (0.0-8.0); NEUT % 63.8 % (16.0-70.0); PLATELET COUNT 637 TH/MM3 (150-450); RED BLOOD COUNT 2.48 MIL/MM3 (4.50-5.90); RED CELL DISTRIBUTION WIDTH 16.9 % (11.6-17.2); WHITE BLOOD COUNT 18.3 TH/MM3 (4.0-11.0)
[2016-02-14 04:37] LABS: HEMO FLAGS AUTO DIFF
[2016-02-14 04:52] LABS: ANION GAP 9 MEQ/L (5-15); AST (GOT) 53 U/L (15-37); BLOOD UREA NITROGEN 61 MG/DL (7-18); CHLORIDE 109 MEQ/L (98-107); GLOMERULAR FILTRATION RATE 65 ML/MIN (>89); MAGNESIUM 2.1 MG/DL (1.5-2.5); POTASSIUM 3.7 MEQ/L (3.5-5.1); SODIUM (NA) 143 MEQ/L (136-145)
[2016-02-14 04:55] LABS: ALKALINE PHOSPHATASE 436 U/L (45-117); ALT (GPT) 42 U/L (12-78); TOTAL BILIRUBIN ADULT 0.4 MG/DL (0.2-1.0)
[2016-02-14] MEDS: PANTOPRAZOLE SODIUM 40 MG VIAL IV PUSH SCH ×2 (05:24→17:22)
[2016-02-14] MEDS: METOPROLOL TARTRATE 25 MG TAB TUBE SCH ×4 (05:24→23:05)
[2016-02-14 05:44] LABS: BLOOD GAS CARBOXYHEMOGLOBIN 1.3 % (0-4); BLOOD GAS HCO3 25 mmol/L (22-26); BLOOD GAS METHEMOGLOBIN 0.7 % (0-2); BLOOD GAS O2 HGB SATURATION 86 % (90-100); BLOOD GAS OXYGEN CONTENT 12.1 Vol % (12.0-20.0); BLOOD GAS PCO2 38 mmHg (38-42); BLOOD GAS PO2 54 mmHg (61-120); BLOOD GAS TOTAL HGB 9.9 G/DL (12.0-16.0); TEMP CORR TO 98.6
[2016-02-14 05:48] LABS: CRITICAL VALUE YES; OXYGEN DEVICE VENTILATOR
[2016-02-14 05:49] LABS: DRAW SITE LT RADIAL; FIO2 40 %; VENT SETTINGS PR/AC 500 RR10 PEEP8
[2016-02-14 05:50] LABS: NUMBER OF ARTERIAL PUNCTURES 1; STAT NO; ULNAR PULSE PRESENT
[2016-02-14 07:40] LABS: BANDS 2 % (0-6); BASOPHILS 1 % (0-2); CORRECTED NUCLEATED RBC 1 /100 WBC (0-0); EOSINOPHILS 4 % (0-4); METAMYELOCYTES 1 % (0-1); MYELOCYTES 3 % (0-0); NEUTROPHIL # MANUAL DIFF 12.6 TH/MM3 (1.8-7.7); POLYS (SEG NEUTROPHILS) 63 % (16-70); WBC DIFF SAMPLE 100
[2016-02-14 07:41] LABS: SCAN/DIFF FINAL DIFF MANUAL
[2016-02-14 07:43] LABS: PLATELET ESTIMATE SMEAR HIGH (NORMAL); PLATELET MORPHOLOGY NORMAL (NORMAL)
[2016-02-14] MEDS: CHLORHEXIDINE 0.12% (ORAL KIT) 15 ML CUP MT SCH ×2 (08:43→21:13)
[2016-02-14] MEDS: TAMSULOSIN HCL 0.4 MG CAP PO SCH (08:43)
[2016-02-14] MEDS: MULTIVITAMINS LIQUID 5 ML UDC TUBE SCH (08:44)
[2016-02-14] MEDS: FERROUS SULFATE 300 MG /5ML UDC TUBE SCH ×2 (08:44→20:05)
[2016-02-14] MEDS: HYDROmorphone HCL PF 4 MG/ML VIAL IV PUSH PRN (08:52)
[2016-02-14] MEDS: SILVER SULFADIAZINE 1% CR 400 GM JAR TOPICAL SCH (10:49)
[2016-02-14] MEDS: POVIDONE IODINE 10% OINT 30 GM TUBE TOPICAL SCH (10:49)
[2016-02-14] MEDS: NEOMYCIN/POLYMYXIN/BACITRACIN OINT 15 GM TUBE TOPICAL SCH ×2 (10:49→20:05)
--- NOTE | 2016-02-14 14:12 | PD.PLAS.PN ---
Subjective Remarks The patient is less communicative today. Vital Signs Date Time Temp Pulse Resp B/P Pulse Ox O2 Delivery O2 Flow Rate FiO2 02/14/16 12:03 100 40 02/14/16 10:00 108 02/14/16 08:00 96 02/14/16 08:00 98.9 100 31 126/69 96 02/14/16 08:00 50 02/14/16 07:51 98 50 02/14/16 07:51 50 02/14/16 07:00 99 Mechanical Ventilator 40 02/14/16 06:15 95 50 02/14/16 06:00 50 02/14/16 06:00 100 02/14/16 04:00 100 02/14/16 04:00 40 02/14/16 04:00 98.3 90 20 118/67 99 02/14/16 03:19 99 40 02/14/16 02:00 100 02/14/16 01:01 22 02/14/16 00:00 100 02/14/16 00:00 98.1 99 22 114/66 96 02/14/16 00:00 40 02/13/16 23:33 95 40 02/13/16 22:00 95 02/13/16 20:00 94 40 02/13/16 20:00 40 02/13/16 20:00 95 02/13/16 20:00 98.4 95 23 129/73 96 02/13/16 19:00 100 Mechanical Ventilator 40 02/13/16 18:00 88 02/13/16 16:00 40 02/13/16 16:00 114 02/13/16 16:00 98.2 114 30 142/81 94 I/O 02/13/16 02/13/16 02/13/16 02/14/16 02/14/16 02/14/16 06:59 14:59 22:59 06:59 14:59 22:59 Intake Total 353 ml 564 ml 381 ml 555 ml Output Total 500 ml 675 ml 450 ml 451 ml Balance -147 ml -111 ml -69 ml 104 ml IV Total 195 ml 110 ml 120 ml 100 ml Tube Feeding 98 ml 254 ml 241 ml 255 ml Other 60 ml 200 ml 20 ml 200 ml Output Urine Total 450 ml 600 ml 350 ml 450 ml Stool Total 50 ml 75 ml 100 ml 1 ml Laboratory Tests Test 02/14/16 02/14/16 03:51 05:34 White Blood Count 18.3 Red Blood Count 2.48 Hemoglobin 7.4 Hematocrit 23.2 Mean Corpuscular Volume 93.4 Mean Corpuscular Hemoglobin 29.8 Mean Corpuscular Hemoglobin 31.9 Concent Red Cell Distribution Width 16.9 Platelet Count 637 Mean Platelet Volume 9.3 Neutrophils (%) (Auto) 63.8 Lymphocytes (%) (Auto) 13.5 Monocytes (%) (Auto) 17.4 Eosinophils (%) (Auto) 4.3 Basophils (%) (Auto) 1.0 Neutrophils # (Auto) 11.7 Lymphocytes # (Auto) 2.5 Monocytes # (Auto) 3.2 Eosinophils # (Auto) 0.8 Basophils # (Auto) 0.2 CBC Comment AUTO DIFF Differential Total Cells 100 Counted Neutrophils % (Manual) 63 Band Neutrophils % 2 Lymphocytes % 7 Monocytes % 19 Eosinophils % 4 Basophils % 1 Neutrophils # (Manual) 12.6 Metamyelocytes 1 Myelocytes 3 Nucleated Red Blood Cells 1 Differential Comment FINAL DIFF MANUAL Platelet Estimate HIGH Platelet Morphology Comment NORMAL Sodium Level 143 Potassium Level 3.7 Chloride Level 109 Carbon Dioxide Level 25.0 Anion Gap 9 Blood Urea Nitrogen 61 Creatinine 1.18 Estimat Glomerular Filtration 65 Rate Random Glucose 112 Calcium Level 9.3 Phosphorus Level 3.6 Magnesium Level 2.1 Total Bilirubin 0.4 Aspartate Amino Transf 53 (AST/SGOT) Alanine Aminotransferase 42 (ALT/SGPT) Alkaline Phosphatase 436 Total Protein 5.4 Albumin 1.0 Blood Gas Puncture Site LT RADIAL Blood Gas Patient Temperature 98.6 Blood Gas HCO3 25 Blood Gas Base Excess 1.0 Blood Gas Oxygen Saturation 86 Arterial Blood pH 7.43 Arterial Blood Partial 38 Pressure CO2 Arterial Blood Partial 54 Pressure O2 Arterial Blood Oxygen Content 12.1 Arterial Blood 1.3 Carboxyhemoglobin Arterial Blood Methemoglobin 0.7 Blood Gas Hemoglobin 9.9 Oxygen Delivery Device VENTILATOR Blood Gas Ventilator Setting NM/AC 500 RR10 PEEP8 Blood Gas Inspired Oxygen 40 Date/Time Procedure Status Source Growth 02/13/16 02:30 Gram Stain - Final Resulted Sputum Endotracheal 02/13/16 02:30 Sputum Culture - Preliminary Resulted Gram Negative Farhat Result Diagram: 02/14/16 0351 02/14/16 0351 Exam Findings The dressings are in place. Plan Impression: The patient is not completely stable. There've been some mental changes over the last 24 hours. Plan: I discussed with the daughter that I would like to postpone the surgery until he is more stable. She is in agreement. Therefore we will postpone the surgery. Barbara Pedro MD Feb 14, 2016 14:12
--- NOTE | 2016-02-14 16:26 | HHI.PR ---
Subjective Subjective Notes Resting in bed Appears to be slightly more interactive today Objective Vitals/I&O Vital Signs Date Time Temp Pulse Resp B/P Pulse Ox O2 Delivery O2 Flow Rate FiO2 02/14/16 14:00 86 02/14/16 12:03 100 40 02/14/16 12:00 98.4 23 123/71 02/14/16 07:00 Mechanical Ventilator Labs Laboratory Tests Test 02/14/16 02/14/16 03:51 05:34 White Blood Count 18.3 Red Blood Count 2.48 Hemoglobin 7.4 Hematocrit 23.2 Mean Corpuscular Volume 93.4 Mean Corpuscular Hemoglobin 29.8 Mean Corpuscular Hemoglobin 31.9 Concent Red Cell Distribution Width 16.9 Platelet Count 637 Mean Platelet Volume 9.3 Neutrophils (%) (Auto) 63.8 Lymphocytes (%) (Auto) 13.5 Monocytes (%) (Auto) 17.4 Eosinophils (%) (Auto) 4.3 Basophils (%) (Auto) 1.0 Neutrophils # (Auto) 11.7 Lymphocytes # (Auto) 2.5 Monocytes # (Auto) 3.2 Eosinophils # (Auto) 0.8 Basophils # (Auto) 0.2 CBC Comment AUTO DIFF Differential Total Cells 100 Counted Neutrophils % (Manual) 63 Band Neutrophils % 2 Lymphocytes % 7 Monocytes % 19 Eosinophils % 4 Basophils % 1 Neutrophils # (Manual) 12.6 Metamyelocytes 1 Myelocytes 3 Nucleated Red Blood Cells 1 Differential Comment FINAL DIFF MANUAL Platelet Estimate HIGH Platelet Morphology Comment NORMAL Sodium Level 143 Potassium Level 3.7 Chloride Level 109 Carbon Dioxide Level 25.0 Anion Gap 9 Blood Urea Nitrogen 61 Creatinine 1.18 Estimat Glomerular Filtration 65 Rate Random Glucose 112 Calcium Level 9.3 Phosphorus Level 3.6 Magnesium Level 2.1 Total Bilirubin 0.4 Aspartate Amino Transf 53 (AST/SGOT) Alanine Aminotransferase 42 (ALT/SGPT) Alkaline Phosphatase 436 Total Protein 5.4 Albumin 1.0 Blood Gas Puncture Site LT RADIAL Blood Gas Patient Temperature 98.6 Blood Gas HCO3 25 Blood Gas Base Excess 1.0 Blood Gas Oxygen Saturation 86 Arterial Blood pH 7.43 Arterial Blood Partial 38 Pressure CO2 Arterial Blood Partial 54 Pressure O2 Arterial Blood Oxygen Content 12.1 Arterial Blood 1.3 Carboxyhemoglobin Arterial Blood Methemoglobin 0.7 Blood Gas Hemoglobin 9.9 Oxygen Delivery Device VENTILATOR Blood Gas Ventilator Setting UT/AC 500 RR10 PEEP8 Blood Gas Inspired Oxygen 40 Date/Time Procedure Status Source Growth 02/13/16 02:30 Gram Stain - Final Resulted Sputum Endotracheal 02/13/16 02:30 Sputum Culture - Preliminary Resulted Gram Negative Farhat Radiology Last Impressions Chest X-Ray 12/28/15 0000 Signed Impressions: Service Date/Time: Monday, December 28, 2015 14:23 - CONCLUSION: Large left pleural effusion and left lung base consolidation. Freddy Connor MD Abdomen/Pelvis CT 12/19/15 0000 Signed Impressions: Service Date/Time: Saturday, December 19, 2015 10:57 - CONCLUSION: 1. Adjacent volume pneumoperitoneum is observed consistent with perforation of a hollow viscus. This is presumably colonic in origin due to the diffuse inflammatory process involving the colon. I do not clearly identify the source of the pneumoperitoneum however. There is mild dilatation of the small bowel likely an ileus in nature. A significant volume of ascitic fluid is noted. 2. Bibasilar atelectasis and bilateral pleural effusions. 3. Small pericardial effusion. 4. Small bilateral nonobstructing renal calculi. 5. I spoke with Dr. Sanchez concerning the findings. Osmar Chavez Jr., MD Abdomen X-Ray 12/18/15 0000 Signed Impressions: Service Date/Time: Friday, December 18, 2015 16:05 - CONCLUSION: Feeding tube tip is at the gastric antrum. Arnaldo Elias MD Chest CT 12/14/15 0000 Signed Impressions: Service Date/Time: Monday, December 14, 2015 06:12 - CONCLUSION: 1. Cardiomegaly with bilateral consolidation, likely CHF. Pneumonia cannot be excluded. 2. Small right pleural effusion. Wojciech Lockhart MD Head CT 12/02/15 1013 Signed Impressions: Service Date/Time: Wednesday, December 02, 2015 11:00 - CONCLUSION: 1. No intracranial abnormality is seen. 2. Air-fluid level in the right maxillary sinus. Arnaldo Reyes MD Cardiovascular: Regular Lungs: Clear Abdomen: Other (see below ) Narrative Exam RIGHT and LEFT arm dressing in place Abd: Midline incision--- with packing; ileostomy with stool A/P Problem List: (1) Dependent on ventilator (2) Open wound of abdomen (3) Ileostomy in place (4) Jejunostomy tube present (5) S/P total colectomy (6) Acute colitis (7) Gastrostomy tube in place Assessment and Plan 55 year old male s/p ex lap; s/p colectomy; J tube placement and would vac change -Advance TF as tolerated -WBC trending down -Agree with continue neurological work up -Continue Primapore dressing BID and PRN to midline incision ----continue packing to superior and inferior areas of incision -Spoke with Dr. Poole about AMS Attending Statement pt seen at bedside \wbc trending down tolerating tf Attestation The exam, history, and the medical decision-making described in the above note were completed with the assistance of the mid-level provider. I reviewed and agree with the findings presented. I attest that I had a [id number] encounter with the patient on the same day, and personally performed and documented my assessment and findings in the medical record. Problem Qualifiers (1) Open wound of abdomen: Qualified Code: S31.109D - Open wound of abdomen, subsequent encounter Lurdes Felix Feb 14, 2016 16:26 Bebo Verdin MD Feb 26, 2016 22:43
[2016-02-14] MEDS: REMOVE OLD PATCH TD SCH ×2 (17:00)
--- NOTE | 2016-02-14 17:03 | HHI.CCPN ---
Subjective Remarks/Hospital Course 55-year-old male brought by EMS with altered mental status. He has history of chronic opiate medications including methadone and morphine that he takes for pain management and hence they gave him Narcan IV which brought the GCS up to 13. The blood glucose was 74. He has open wounds from his right upper and bilateral lower extremities. He has history of hepatitis C. Last week he was pealing and eating shrimps. Bedside blood sugar was 76 in the ER. He was tachycardic in 1 teens and was intubated in the ED for airway protection. Admitted to ICU with sepsis due to Staph Aureus hand infection and E. Coli bacteriemia. Hospital course complicated by perforated ascending colon with extended right hemicolectomy, primary ileocolic anastamosis, open abdomen, septic shock, acute hypoxic and hypercarbic respiratory failure 12/19. Taken back to the OR 12/20 afternoon for washout and completion colectomy. 12/25 Hemoglobin dropped to 4.1. Noted to have bloody drainage from G-tube and dorsal ileostomy with black stool output due to 2 gastric ulcers bleeding, stomach a significant part had decreased discoloration indicating probable ischemia. s/p epi injection and cauterization. 12/27Tracheostomy placed. 01/06: Underwent exploratory laparotomy with findings of bleeding gastric ulcer which was oversewn by Dr. Verdin abdomen left open with wound VAC in place. Now closed. On trach collar occasionally alternation intermittently with a CPAP. 02/10 Tmax 100.0. The patient has been maintain on CPAP 15 over 5/24 hours without difficulty. O2 saturations greater than 92%. Plan for trach collar trials today. 02/11 Tmax 98.4. The patient was unable to begin trach collar trials yesterday. The patient became tachypnea, RR 50's on CPAP at 4:30 yesterday requiring mechanical ventilation being placed on a rate.Patient has been maintained on mechanical ventilation overnight without any respiratory distress. O2 saturation remains 9798%. No episodes of nausea last night the patient tolerated tube feeds at 50/cc, will advance to goal today. 02/12 Afebrile. This a.m., upon examination, the patient spontaneously had eyes open but was not responding to commands as previously. Noted facial twitching eye twitching specifically the right side of face. The patient was not mouthing any words. Concern for subclinical seizure activity, or elevated ammonia levels. Ammonia level drawn, CT scan obtained EEG pending. Patient also did not tolerate tube feeds overnight. 02/13. Patient has tolerated tube feeds for the last 24 hours, noted albumin level decreased slightly from 1.1-1.0. Nutrition reconsulted for possible supplementation aids. Patient underwent EEG yesterday,, inconclusive could be of epileptiform significant, study was limited due to excessive artifact. CT brain revealed possible left mastoiditis, ammonia level not elevated .Upon examination, patient continues to have facial twitching, intermittently. Objective Vital Signs Date Time Temp Pulse Resp B/P Pulse Ox O2 Delivery O2 Flow Rate FiO2 02/14/16 14:00 86 02/14/16 12:03 100 40 02/14/16 12:00 98.4 23 123/71 02/14/16 07:00 Mechanical Ventilator Intake and Output 02/13/16 02/13/16 02/13/16 07:59 15:59 23:59 Intake Total 353 ml 564 ml 381 ml Output Total 500 ml 675 ml 450 ml Balance -147 ml -111 ml -69 ml Result Diagram: 02/14/16 0351 02/14/16 0351 Other Results Laboratory Tests Test 02/14/16 05:34 Blood Gas Puncture Site LT RADIAL Blood Gas Patient Temperature 98.6 Blood Gas HCO3 25 mmol/L (22-26) Blood Gas Base Excess 1.0 mmol/L (-2-2) Blood Gas Oxygen Saturation 86 % (90-100) Arterial Blood pH 7.43 (7.380-7.420) Arterial Blood Partial 38 mmHg (38-42) Pressure CO2 Arterial Blood Partial 54 mmHg Pressure O2 (61-120) Arterial Blood Oxygen Content 12.1 Vol % (12.0-20.0) Arterial Blood 1.3 % (0-4) Carboxyhemoglobin Arterial Blood Methemoglobin 0.7 % (0-2) Blood Gas Hemoglobin 9.9 G/DL (12.0-16.0) Oxygen Delivery Device VENTILATOR Blood Gas Ventilator Setting OR/AC 500 RR10 PEEP8 Blood Gas Inspired Oxygen 40 % Imaging Last Impressions Chest X-Ray 02/11/16 0600 Signed Impressions: Service Date/Time: Thursday, February 11, 2016 05:41 - CONCLUSION: Rotated study demonstrating no significant interval change. Owen Arzola MD Upper Extremity Ultrasound 01/30/16 0000 Signed Impressions: Service Date/Time: Saturday, January 30, 2016 11:18 - CONCLUSION: Limited exam without thrombus identified. Raudel Mckinney MD FACR Thoracentesis 01/28/16 0000 Signed Impressions: Service Date/Time: Thursday, January 28, 2016 12:54 - CONCLUSION: Uncomplicated CT-guided thoracentesis. Ramone Hall MD Abdomen/Pelvis CT 01/23/16 0800 Signed Impressions: Service Date/Time: Saturday, January 23, 2016 09:05 - CONCLUSION: Relative to the prior study the marked distention of the stomach is reduced. There is a persistent 5 cm left upper quadrant sub-diaphragmatic fluid collection and drain in the left upper quadrant. Patient is post splenectomy. Jejunostomy is in place and ostomy is noted in the right lower abdomen. No free fluid or free air is appreciated and there is no evidence of obstruction. Bilateral pleural effusions persists small but slightly larger on the right with left lower lobe consolidation. Jared Medina MD ADDENDUM: I have reviewed the images with respect to her request made for left subdiaphragmatic drainage of a fluid collection. No fluid collection is observed within the left upper quadrant. There is residual splenic tissue that measures 5 cm in diameter with Hounsfield units 62. The stomach fundus extends up into the subdiaphragmatic location. No subdiaphragmatic fluid collection is observed. Surgical drains are noted. Osmar Chavez Jr., MD Chest CT 01/05/16 0000 Signed Impressions: Service Date/Time: Tuesday, January 05, 2016 23:15 - CONCLUSION: 1. Persistent left lower lobar consolidation. Improved consolidative infiltrates in the right lower lung. 2. Interval increase size bilateral pleural effusions , left greater than right. Osmar Alegria MD Celiac/Hepatic Arteriogram 12/27/15 0000 Signed Impressions: Service Date/Time: December 13:41 - CONCLUSION: 1. No active GI bleed identified. Robert Mckinney MD Abdomen X-Ray 12/18/15 0000 Signed Impressions: Service Date/Time: Friday, December 18, 2015 16:05 - CONCLUSION: Feeding tube tip is at the gastric antrum. Arnaldo Elias MD Head CT 12/02/15 1013 Signed Impressions: Service Date/Time: Wednesday, December 02, 2015 11:00 - CONCLUSION: 1. No intracranial abnormality is seen. 2. Air-fluid level in the right maxillary sinus. Arnaldo Reyes MD Last 24 hours Impressions Chest X-Ray 02/05/16 0600 Signed Impressions: Service Date/Time: Friday, February 05, 2016 04:11 - CONCLUSION: Worsening/developing effusions and basilar consolidation, currently left worse than right. Arnaldo Elias MD Objective Remarks GENERAL: Middle-aged chronically critically ill, semi-recombinant in recliner chair, right side noted facial twitch, not mouthing words/or responding. HEENT: NCAT. mucous membranes moist. NECK: [address], no active bleeding, no evidence of infection. RESPIRATORY: Normal respiratory rate. Breath sounds present bilaterally, clear without wheezing or rhonchi. CARDIOVASCULAR: Regular, tachycardic. Sinus tach on monitor. No murmurs rubs or gallops. GASTROINTESTINAL: J tube in place with tube feeds running @ 50cc/hr. Gauze dressings in place inferior aspect of midline incision. Ostomy with brown colored stool. MUSCULOSKELETAL: Pitting edema 2+ bilateral feet and hands. Gauze dressing bilateral upper extremity Multiple open wounds in the lower extremity with gauze dressing. NEURO: Awake. Not following my commands today., Not communicating by mouthing words today , continued facial twitching noted, right arm shoulder twitch. 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 Miller). - Trach exchanged 8.0 Shiley with cuff on 01/19 - DuoNeb q6h and as needed -On CPAP today for 12 hours - Last CT guided thoracentesis 01/27 - CXR 02/11 unchanged - Continue fluid mobilization with lasix Leukocytosis Bandemia - re-cultured 02/07 - Bands 6->1->11->2 today - ID following, Dr. Becerra - WBC 19 ->18 today Sputum Culture 02/12 gram-negative pablo Sputum Culture 02/07 Stenotrophonamis Maltophilia Blood Culture 02/07 NGTD Urine Culture 02/02 neg NIGEL - on home CPAP - Tracheostomy - not an issue while tracheostomy in place Hyperkalemia - Hyperkalemia - improving with Lasix - Resolved - Kayexalate discontinued Hypernatremia - continue Free water flushes 200 q 8 hr - Urine eos negative. - Avoiding nephrotoxins. - Monitor BMP - Continue to replete electrolytes per ICU protocol Perforated right colon with ischemic colitis - s/p ex-lap, extended right hemicolectomy with primary ileocolic anastamosis - s/p Ex lap 01/05 for bleeding gastric ulcer - management per GS - no acute issues Acute protein calorie malnutrition - severe -Nutrition reconsulted, for recommendations regarding supplementation - continue Beneprotein 1 packet QID - Prealbumin 14 on 01/26 - Jevity goal rate to 65/hr based on nutrition most recent recommendations @ goal - repeat pre-albumin level 6 Chronic hepatitis C - s/p interferon/ribavirin years ago - Liver biopsy 04/14/08 - monitor for liver failure -Ammonia level 31 Gastric ulcer disease - EGD 12/26/15 showed 2 large gastric ulcers with active bleeding - status post epinephrine infusion and cauterization - To OR 01/05 with GI bleeding and hemorrhagic shock. - gastrotomy with ligation of gastric ulcer, lysis of adhesions, wound VAC placement - Continue Protonix 40 g IV q12h Acute Anemia - secondary to acute blood loss - Hgb stable 7.4, will transfuse for hemoglobin less than 7 - last transfused 1 unit PRBC 02/02 - Melena resolved. - No obvious active bleeding. - Ferrous Sulfate 300mg bid Thrombocytopenia - resolved - Hep PLT ab negative on 12/03 - due to chronic liver disease - no active bleeding Hyperglycemia of Critical Illness - off Insulin drip - Levemir BID on hold, not clinically indicated at this time - Low-dose insulin sliding scale DC Critical illness polyneuropathy -Continue PT daily, out of bed to chair, functional maintenance of extremities 4 Open wounds,B/L upper extremities multiple stages -Reconsult wound care 02/11 B/L upper extremities -Digits on hand reddened and edematous Facial spasms/twitching -02/12 CT brain normal, possible left mastoiditis, ID aware -Calcium level 9.1, BMP normal -ENT consult -Obtain MRI brain - EEG 02/12-mouth and facial twitching noted. The discharge could be of epileptiform significant, excessive artifact study limited. GI Prophylaxis: -- Protonix IV BID DVT Prophylaxis: - SCDs - No chemical DVT Prophylaxis, OOB to chair and daily functional maintenance of extremities x 4 ACCESS: --PIV x 2. Discuss [employer]MENT[employer]ALL INST[employer]ER at bedside. Level 2 Contacted spouse Clemencia Smith, updated her yesterday and again today, her vital results of EEG and CT. Plan for MRI of the brain, an ENT consult. Patient continues on CPAP for over 12 hours. Physician Fe Poole Problem Qualifiers (1) Respiratory failure: Qualified Code: J96.00 - Acute respiratory failure, unspecified whether with hypoxia or hypercapnia (2) Altered mental status: Qualified Code: R41.0 - Delirium (3) Sepsis: Qualified Code: A41.9 - Sepsis, due to unspecified organism Fe Poole MD Feb 14, 2016 17:03
[2016-02-14] MEDS: fentaNYL 25 MCG/HR PATCH TD SCH (17:23)
[2016-02-14] MEDS: fentaNYL 100 MCG/HR PATCH TD SCH (17:24)
--- NOTE | 2016-02-14 22:23 | HHI.IDPN ---
Subjective Subjective Remarks Delayed entry - pt was seen earlier today arond [address] Poole: pt had nuerological changes yday Now noted much less interactive afebrile CT head cw acute left mastoiditis Antibiotics fortaz Lines periferal L foot Past Medical History RA HCV sp splenectomy Allergies: Coded Allergies: Compazine (Verified Allergy, Severe, VOMITING, RASH, 08/26/14) SLURRED SPEECH, MIGRAINES Demerol (Verified Allergy, Severe, VOMITING, 08/26/14) Levaquin (Verified Allergy, Severe, 08/26/14) Penicillin (Verified Allergy, Severe, Rash, 08/26/14) Phenergan (Verified Allergy, Severe, VOMITING, 08/26/14) Uncoded Allergies: ANTI-CONVULSIVES (Allergy, Severe, MIGRAINES, SLURRED SPEECH,, 01/23/14) Objective . Vital Signs Date Time Temp Pulse Resp B/P Pulse Ox O2 Delivery O2 Flow Rate FiO2 02/14/16 21:05 20 02/14/16 20:00 92 02/14/16 20:00 40 02/14/16 20:00 98.1 92 26 131/70 95 02/14/16 20:00 96 Mechanical Ventilator 40 02/14/16 19:33 97 40 02/14/16 18:00 84 02/14/16 17:30 40 02/14/16 16:55 98 40 02/14/16 16:00 96 02/14/16 16:00 40 02/14/16 16:00 98.4 96 29 123/75 100 02/14/16 14:00 86 02/14/16 12:03 100 40 02/14/16 12:00 98.4 112 23 123/71 100 02/14/16 12:00 112 02/14/16 12:00 50 02/14/16 10:00 108 02/14/16 08:00 96 02/14/16 08:00 98.9 100 31 126/69 96 02/14/16 08:00 50 02/14/16 07:51 98 50 02/14/16 07:51 50 02/14/16 07:00 99 Mechanical Ventilator 40 02/14/16 06:15 95 50 02/14/16 06:00 50 02/14/16 06:00 100 02/14/16 04:00 100 02/14/16 04:00 40 02/14/16 04:00 98.3 90 20 118/67 99 02/14/16 03:19 99 40 02/14/16 02:00 100 02/14/16 00:00 100 02/14/16 00:00 98.1 99 22 114/66 96 02/14/16 00:00 40 02/13/16 23:33 95 40 02/13/16 02/13/16 02/14/16 14:59 22:59 06:59 Intake Total 564 ml 381 ml 555 ml Output Total 675 ml 450 ml 451 ml Balance -111 ml -69 ml 104 ml IV Total 110 ml 120 ml 100 ml Tube Feeding 254 ml 241 ml 255 ml Other 200 ml 20 ml 200 ml Output Urine Total 600 ml 350 ml 450 ml Stool Total 75 ml 100 ml 1 ml . Laboratory Tests Test 02/13/16 02/14/16 04:45 03:51 White Blood Count 19.5 TH/MM3 18.3 TH/MM3 Red Blood Count 2.63 MIL/MM3 2.48 MIL/MM3 Hemoglobin 7.6 GM/DL 7.4 GM/DL Hematocrit 24.0 % 23.2 % Mean Corpuscular Volume 91.4 FL 93.4 FL Mean Corpuscular Hemoglobin 28.9 PG 29.8 PG Mean Corpuscular Hemoglobin 31.7 % 31.9 % Concent Red Cell Distribution Width 16.2 % 16.9 % Platelet Count 648 TH/MM3 637 TH/MM3 Mean Platelet Volume 9.4 FL 9.3 FL Neutrophils (%) (Auto) 63.8 % Lymphocytes (%) (Auto) 13.5 % Monocytes (%) (Auto) 17.4 % Eosinophils (%) (Auto) 4.3 % Basophils (%) (Auto) 1.0 % Neutrophils # (Auto) 11.7 TH/MM3 Lymphocytes # (Auto) 2.5 TH/MM3 Monocytes # (Auto) 3.2 TH/MM3 Eosinophils # (Auto) 0.8 TH/MM3 Basophils # (Auto) 0.2 TH/MM3 CBC Comment AUTO DIFF Differential Total Cells 100 Counted Neutrophils % (Manual) 63 % Band Neutrophils % 2 % Lymphocytes % 7 % Monocytes % 19 % Eosinophils % 4 % Basophils % 1 % Neutrophils # (Manual) 12.6 TH/MM3 Metamyelocytes 1 % Myelocytes 3 % Nucleated Red Blood Cells 1 /100 WBC Differential Comment FINAL DIFF MANUAL Platelet Estimate HIGH Platelet Morphology Comment NORMAL Laboratory Tests Test 02/13/16 02/13/16 02/14/16 04:45 12:37 03:51 Sodium Level 144 MEQ/L 143 MEQ/L Potassium Level 4.0 MEQ/L 3.7 MEQ/L Chloride Level 108 MEQ/L 109 MEQ/L Carbon Dioxide Level 27.6 MEQ/L 25.0 MEQ/L Anion Gap 8 MEQ/L 9 MEQ/L Blood Urea Nitrogen 57 MG/DL 61 MG/DL Creatinine 1.05 MG/DL 1.18 MG/DL Estimat Glomerular Filtration 74 ML/MIN 65 ML/MIN Rate Random Glucose 99 MG/DL 112 MG/DL Calcium Level 9.2 MG/DL 9.3 MG/DL Phosphorus Level 3.2 MG/DL 3.6 MG/DL Magnesium Level 2.0 MG/DL 2.1 MG/DL Total Bilirubin 0.6 MG/DL 0.4 MG/DL Aspartate Amino Transf 61 U/L 53 U/L (AST/SGOT) Alanine Aminotransferase 48 U/L 42 U/L (ALT/SGPT) Alkaline Phosphatase 480 U/L 436 U/L Total Protein 5.9 GM/DL 5.4 GM/DL Albumin 1.1 GM/DL 1.0 GM/DL Ammonia 31 MCMOL/L Microbiology Date/Time Procedure Status Source Growth 02/13/16 02:30 Gram Stain - Final Resulted Sputum Endotracheal 02/13/16 02:30 Sputum Culture - Preliminary Resulted Gram Negative [facility] Imaging Last Impressions Chest X-Ray 02/13/16 0600 Signed Impressions: Service Date/Time: Saturday, February 13, 2016 04:25 - CONCLUSION: 1. No significant change. Consolidative opacity remains in the left lung base which could represent infiltrate and/or effusion. 2. Cardiomegaly is again noted. Owen Arzola MD Head CT 02/13/16 0000 Signed Impressions: Service Date/Time: Saturday, February 13, 2016 12:12 - CONCLUSION: 1. No acute intracranial abnormality. 2. New opacification of the left mastoid air cells. Clinical evaluation for acute left mastoiditis suggested. Osmar Chavez Jr., MD Upper Extremity Ultrasound 01/30/16 0000 Signed Impressions: Service Date/Time: Saturday, January 30, 2016 11:18 - CONCLUSION: Limited exam without thrombus identified. Raudel Mckinney MD FACR Thoracentesis 01/28/16 0000 Signed Impressions: Service Date/Time: Thursday, January 28, 2016 12:54 - CONCLUSION: Uncomplicated CT-guided thoracentesis. Ramone Hall MD Abdomen/Pelvis CT 01/23/16 0800 Signed Impressions: Service Date/Time: Saturday, January 23, 2016 09:05 - CONCLUSION: Relative to the prior study the marked distention of the stomach is reduced. There is a persistent 5 cm left upper quadrant sub-diaphragmatic fluid collection and drain in the left upper quadrant. Patient is post splenectomy. Jejunostomy is in place and ostomy is noted in the right lower abdomen. No free fluid or free air is appreciated and there is no evidence of obstruction. Bilateral pleural effusions persists small but slightly larger on the right with left lower lobe consolidation. Jared Medina MD ADDENDUM: I have reviewed the images with respect to her request made for left subdiaphragmatic drainage of a fluid collection. No fluid collection is observed within the left upper quadrant. There is residual splenic tissue that measures 5 cm in diameter with Hounsfield units 62. The stomach fundus extends up into the subdiaphragmatic location. No subdiaphragmatic fluid collection is observed. Surgical drains are noted. Osmar Chavez Jr., MD Chest CT 01/05/16 0000 Signed Impressions: Service Date/Time: Tuesday, January 05, 2016 23:15 - CONCLUSION: 1. Persistent left lower lobar consolidation. Improved consolidative infiltrates in the right lower lung. 2. Interval increase size bilateral pleural effusions , left greater than right. Osmar Alegria MD Celiac/Hepatic Arteriogram 12/27/15 0000 Signed Impressions: Service Date/Time: December 13:41 - CONCLUSION: 1. No active GI bleed identified. Robert Mckinney MD Abdomen X-Ray 12/18/15 0000 Signed Impressions: Service Date/Time: Friday, December 18, 2015 16:05 - CONCLUSION: Feeding tube tip is at the gastric antrum. Arnaldo Elias MD Physical Exam GENERAL: On vent , awake fully alert SKIN: no jaundice. Most of pt's anasarca has resolved HEENT: no icterus, no nasal discharge NECK: Trach in place CARDIOVASCULAR: systolic murmur in base of heart RESPIRATORY/CHEST: few rhonchi on auscultation. GASTROINTESTINAL: dressing in place Stoma with brown stool soft, thick Incision packed minimal amount of serous drainage GENITOURINARY: Sandoval catheter in place with clear light yellow urine with sediment MUSCULOSKELETAL: Extremities no cyanosis, persistent+ 1 edema on BLE RUE with with VAC LUE with dressignin place NEUROLOGICAL: fully awake and alert , makes eye contact and follows commands less interactive new difficulty his toungue and opening mouth noted Assessment & Plan Remarks Sepsis 2/2 colon perforation and intraperitoneal gross contamination and Intra abdominal peritonitis (Cdiff Colitis. vs ischemia) - sp subtotal colectomy and ileostomy RUE severe nec fasc due to MSSA - clinically resolved infx, poor healing Recurrent life threatening upper GI bleeding 2/2 bleeding ulcers: stopped Persistent leukocytosis - improving C. parapsilosa fungemia : resolved New acute left mastoiditis ? new PNA - growing Stenotroph malto PLAN: cont fortaz repeat sputum clx If cont to have unexplained fever/worsening .lekocytosis will get CT A/p dw Argelia Potts RN, MD Feb 14, 2016 22:22
[2016-02-15] VITALS (18 sets, daily range): BP systolic 117–157; BP diastolic 65–86; PULSE 88–128; RESP 15–25; TEMP 98.1–99.2; O2SAT 91–99
[2016-02-15] MEDS: oxyCODONE HCL ORAL CONC 20 MG/ML SYRINGE PO SCH ×6 (00:40→21:15)
[2016-02-15] MEDS: FREE WATER G-TUBE SCH ×3 (00:41→17:00)
[2016-02-15] MEDS: FUROSEMIDE 20 MG/2 ML VIAL IV PUSH SCH ×4 (02:39→21:14)
[2016-02-15] MEDS: cefTAZidime INJ 2,000 MG in SODIUM CHLORIDE 0.9% INJ 100 ML IV SCH ×3 (03:20→21:13)
[2016-02-15] MEDS: CHLORHEXIDINE GLUCONATE 2 % 1 PACK (2 CLOTHS) TOP SCH (03:21)
[2016-02-15 04:45] LABS: AUTOMATED NEUTROPHIL # 11.3 TH/MM3 (1.8-7.7); BASOPHIL # 0.2 TH/MM3 (0-0.2); BASOPHIL % 1.1 % (0.0-2.0); EOSINOPHIL % 5.4 % (0.0-4.0); HEMATOCRIT 23.9 % (39.0-51.0); LYMPH % 15.2 % (9.0-44.0); LYMPHOCYTE # 2.8 TH/MM3 (1.0-4.8); MEAN CELL VOLUME 92.7 FL (80.0-100.0); MEAN CORPUSCULAR HEMOGLOBIN 28.9 PG (27.0-34.0); MEAN CORPUSCULAR HGB CONC 31.2 % (32.0-36.0); MONO % 16.4 % (0.0-8.0); NEUT % 61.9 % (16.0-70.0); PLATELET COUNT 698 TH/MM3 (150-450); RED BLOOD COUNT 2.58 MIL/MM3 (4.50-5.90); RED CELL DISTRIBUTION WIDTH 16.7 % (11.6-17.2); WHITE BLOOD COUNT 18.3 TH/MM3 (4.0-11.0)
[2016-02-15 04:59] LABS: ANION GAP 11 MEQ/L (5-15); AST (GOT) 47 U/L (15-37); BICARBONATE 25.6 MEQ/L (21.0-32.0); BLOOD UREA NITROGEN 59 MG/DL (7-18); CHLORIDE 107 MEQ/L (98-107); GLOMERULAR FILTRATION RATE 61 ML/MIN (>89); MAGNESIUM 2.2 MG/DL (1.5-2.5); POTASSIUM 3.4 MEQ/L (3.5-5.1); SODIUM (NA) 144 MEQ/L (136-145)
[2016-02-15 05:03] LABS: ALKALINE PHOSPHATASE 450 U/L (45-117); ALT (GPT) 38 U/L (12-78); TOTAL BILIRUBIN ADULT 0.4 MG/DL (0.2-1.0)
[2016-02-15 05:16] LABS: HEMO FLAGS AUTO DIFF
[2016-02-15] MEDS: PANTOPRAZOLE SODIUM 40 MG VIAL IV PUSH SCH ×2 (05:31→17:02)
[2016-02-15] MEDS: METOPROLOL TARTRATE 25 MG TAB TUBE SCH ×3 (05:32→17:02)
[2016-02-15] MEDS: CHLORHEXIDINE 0.12% (ORAL KIT) 15 ML CUP MT SCH ×2 (08:00→21:14)
[2016-02-15] MEDS: NEOMYCIN/POLYMYXIN/BACITRACIN OINT 15 GM TUBE TOPICAL SCH ×2 (09:00→21:15)
[2016-02-15] MEDS: SILVER SULFADIAZINE 1% CR 400 GM JAR TOPICAL SCH (09:00)
[2016-02-15] MEDS: POVIDONE IODINE 10% OINT 30 GM TUBE TOPICAL SCH (09:00)
[2016-02-15] MEDS: TAMSULOSIN HCL 0.4 MG CAP PO SCH (09:00)
[2016-02-15 09:07] LABS: BANDS 1 % (0-6); EOSINOPHILS 2 % (0-4); METAMYELOCYTES 2 % (0-1); MYELOCYTES 3 % (0-0); NEUTROPHIL # MANUAL DIFF 12.8 TH/MM3 (1.8-7.7); POLYS (SEG NEUTROPHILS) 64 % (16-70); WBC DIFF SAMPLE 100
[2016-02-15 09:08] LABS: PLATELET ESTIMATE SMEAR HIGH (NORMAL); PLATELET MORPHOLOGY NORMAL (NORMAL); SCAN/DIFF FINAL DIFF MANUAL
[2016-02-15 09:09] LABS: KERATOCYTES OCC (NORMAL)
[2016-02-15] MEDS: FERROUS SULFATE 300 MG /5ML UDC TUBE SCH ×2 (09:12→21:14)
[2016-02-15] MEDS: MULTIVITAMINS LIQUID 5 ML UDC TUBE SCH (09:12)
[2016-02-15] MEDS: POTASSIUM CHLOR 20 MEQ PREMIX 100 ML IV SCH ×2 (09:20→09:22)
--- NOTE | 2016-02-15 10:11 | HHI.CCPN ---
Subjective Remarks/Hospital Course 55-year-old male brought by EMS with altered mental status. He has history of chronic opiate medications including methadone and morphine that he takes for pain management and hence they gave him Narcan IV which brought the GCS up to 13. The blood glucose was 74. He has open wounds from his right upper and bilateral lower extremities. He has history of hepatitis C. Last week he was pealing and eating shrimps. Bedside blood sugar was 76 in the ER. He was tachycardic in 1 teens and was intubated in the ED for airway protection. Admitted to ICU with sepsis due to Staph Aureus hand infection and E. Coli bacteriemia. Hospital course complicated by perforated ascending colon with extended right hemicolectomy, primary ileocolic anastamosis, open abdomen, septic shock, acute hypoxic and hypercarbic respiratory failure 12/19. Taken back to the OR 12/20 afternoon for washout and completion colectomy. 12/25 Hemoglobin dropped to 4.1. Noted to have bloody drainage from G-tube and dorsal ileostomy with black stool output due to 2 gastric ulcers bleeding, stomach a significant part had decreased discoloration indicating probable ischemia. s/p epi injection and cauterization. 12/27Tracheostomy placed. 01/06: Underwent exploratory laparotomy with findings of bleeding gastric ulcer which was oversewn by Dr. Verdin abdomen left open with wound VAC in place. Now closed. On trach collar occasionally alternation intermittently with a CPAP. 02/10 Tmax 100.0. The patient has been maintain on CPAP 15 over 5/24 hours without difficulty. O2 saturations greater than 92%. Plan for trach collar trials today. 02/11 Tmax 98.4. The patient was unable to begin trach collar trials yesterday. The patient became tachypnea, RR 50's on CPAP at 4:30 yesterday requiring mechanical ventilation being placed on a rate.Patient has been maintained on mechanical ventilation overnight without any respiratory distress. O2 saturation remains 9798%. No episodes of nausea last night the patient tolerated tube feeds at 50/cc, will advance to goal today. 02/12 Afebrile. This a.m., upon examination, the patient spontaneously had eyes open but was not responding to commands as previously. Noted facial twitching eye twitching specifically the right side of face. The patient was not mouthing any words. Concern for subclinical seizure activity, or elevated ammonia levels. Ammonia level drawn, CT scan obtained EEG pending. Patient also did not tolerate tube feeds overnight. 02/13. Patient has tolerated tube feeds for the last 24 hours, noted albumin level decreased slightly from 1.1-1.0. Nutrition reconsulted for possible supplementation aids. Patient underwent EEG yesterday,, inconclusive could be of epileptiform significant, study was limited due to excessive artifact. CT brain revealed possible left mastoiditis, ammonia level not elevated .Upon examination, patient continues to have facial twitching, intermittently. 02/14 Afebrile. The patient continues to tolerate tube feeds currently at 40 cc /hour, no nausea last evening. Continue noted facial twitching by staff, the patient will go undergo MRI studies today. The patient was able to tolerate CPAP trials for 12 hours yesterday, and class placed back on the vent at 6 PM. Objective Vital Signs Date Time Temp Pulse Resp B/P Pulse Ox O2 Delivery O2 Flow Rate FiO2 02/15/16 08:34 40 02/15/16 07:27 95 T-piece 02/15/16 06:00 88 02/15/16 04:00 98.1 23 134/71 Intake and Output 02/14/16 02/14/16 02/15/16 08:00 16:00 00:00 Intake Total 555 ml 537 ml 546 ml Output Total 451 ml 700 ml 450 ml Balance 104 ml -163 ml 96 ml Result Diagram: 02/15/16 0403 02/15/16 0403 Imaging Last Impressions Chest X-Ray 02/11/16 0600 Signed Impressions: Service Date/Time: Thursday, February 11, 2016 05:41 - CONCLUSION: Rotated study demonstrating no significant interval change. Owen Arzola MD Upper Extremity Ultrasound 01/30/16 0000 Signed Impressions: Service Date/Time: Saturday, January 30, 2016 11:18 - CONCLUSION: Limited exam without thrombus identified. Raudel Mckinney MD FACR Thoracentesis 01/28/16 0000 Signed Impressions: Service Date/Time: Thursday, January 28, 2016 12:54 - CONCLUSION: Uncomplicated CT-guided thoracentesis. Ramone Hall MD Abdomen/Pelvis CT 01/23/16 0800 Signed Impressions: Service Date/Time: Saturday, January 23, 2016 09:05 - CONCLUSION: Relative to the prior study the marked distention of the stomach is reduced. There is a persistent 5 cm left upper quadrant sub-diaphragmatic fluid collection and drain in the left upper quadrant. Patient is post splenectomy. Jejunostomy is in place and ostomy is noted in the right lower abdomen. No free fluid or free air is appreciated and there is no evidence of obstruction. Bilateral pleural effusions persists small but slightly larger on the right with left lower lobe consolidation. Jared Medina MD ADDENDUM: I have reviewed the images with respect to her request made for left subdiaphragmatic drainage of a fluid collection. No fluid collection is observed within the left upper quadrant. There is residual splenic tissue that measures 5 cm in diameter with Hounsfield units 62. The stomach fundus extends up into the subdiaphragmatic location. No subdiaphragmatic fluid collection is observed. Surgical drains are noted. Osmar Chavez Jr., MD Chest CT 01/05/16 0000 Signed Impressions: Service Date/Time: Tuesday, January 05, 2016 23:15 - CONCLUSION: 1. Persistent left lower lobar consolidation. Improved consolidative infiltrates in the right lower lung. 2. Interval increase size bilateral pleural effusions , left greater than right. Osmar Alegria MD Celiac/Hepatic Arteriogram 12/27/15 0000 Signed Impressions: Service Date/Time: December 13:41 - CONCLUSION: 1. No active GI bleed identified. Robert Mckinney MD Abdomen X-Ray 12/18/15 0000 Signed Impressions: Service Date/Time: Friday, December 18, 2015 16:05 - CONCLUSION: Feeding tube tip is at the gastric antrum. Arnaldo Elias MD Head CT 12/02/15 1013 Signed Impressions: Service Date/Time: Wednesday, December 02, 2015 11:00 - CONCLUSION: 1. No intracranial abnormality is seen. 2. Air-fluid level in the right maxillary sinus. Arnaldo Reyes MD Last 24 hours Impressions Chest X-Ray 02/05/16 0600 Signed Impressions: Service Date/Time: Friday, February 05, 2016 04:11 - CONCLUSION: Worsening/developing effusions and basilar consolidation, currently left worse than right. Arnaldo Elias MD Objective Remarks GENERAL: Middle-aged chronically critically ill, lying in bed , easily arousable not mouthing words this a.m. HEENT: NCAT. mucous membranes moist. NECK: [address], no active bleeding, no evidence of infection. RESPIRATORY: Normal respiratory rate. Breath sounds present bilaterally, clear without wheezing or rhonchi. CARDIOVASCULAR: Regular, tachycardic. Sinus tach on monitor. No murmurs rubs or gallops. GASTROINTESTINAL: J tube in place with tube feeds running @ 40cc/hr.Ostomy with brown colored stool. MUSCULOSKELETAL: Pitting edema 2+ bilateral feet and hands. Gauze dressing bilateral upper extremity Multiple open wounds in the lower extremity with gauze dressing. NEURO: Awake. Not following my commands today., Not communicating by mouthing words today , continued facial twitching noted, right arm shoulder twitch. 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 Miller). - Trach exchanged 8.0 Shiley with cuff on 01/19 - DuoNeb q6h and as needed -On CPAP today for 12 hours - Last CT guided thoracentesis 01/27 - CXR 02/11 unchanged - Continue fluid mobilization with lasix Leukocytosis Bandemia - re-cultured 02/07 - Bands 6->1->11->2->1 today - ID following, Dr. Becerra - WBC 19 ->18 today Sputum Culture 02/12 gram-negative pbalo Sputum Culture 02/07 Stenotrophonamis Maltophilia Blood Culture 02/07 NGTD Urine Culture 02/02 neg NIGEL - on home CPAP - Tracheostomy - not an issue while tracheostomy in place Hyperkalemia Hypokalemia - Hyperkalemia - improving with Lasix - Resolved - Kayexalate discontinued -Repletion KCL 40 meq IV piggyback today Hypernatremia - continue Free water flushes 200 q 8 hr - Urine eos negative. - Avoiding nephrotoxins. - Monitor BMP - Continue to replete electrolytes per ICU protocol Perforated right colon with ischemic colitis - s/p ex-lap, extended right hemicolectomy with primary ileocolic anastamosis - s/p Ex lap 01/05 for bleeding gastric ulcer - management per GS - no acute issues Acute protein calorie malnutrition - severe -Nutrition reconsulted, for recommendations regarding supplementation - continue Beneprotein 1 packet QID - Prealbumin 14 on 01/26 - Jevity goal rate to 65/hr based on nutrition most recent recommendations @ goal - repeat pre-albumin level 6 Chronic hepatitis C - s/p interferon/ribavirin years ago - Liver biopsy 04/14/08 - monitor for liver failure -Ammonia level 31 Gastric ulcer disease - EGD 12/26/15 showed 2 large gastric ulcers with active bleeding - status post epinephrine infusion and cauterization - To OR 01/05 with GI bleeding and hemorrhagic shock. - gastrotomy with ligation of gastric ulcer, lysis of adhesions, wound VAC placement - Continue Protonix 40 g IV q12h Acute Anemia - secondary to acute blood loss - Hgb stable 7.5, will transfuse for hemoglobin less than 7 - last transfused 1 unit PRBC 02/02 - Melena resolved. - No obvious active bleeding. - Ferrous Sulfate 300mg bid Thrombocytopenia - resolved - Hep PLT ab negative on 12/03 - due to chronic liver disease - no active bleeding Hyperglycemia of Critical Illness - off Insulin drip - Levemir BID on hold, not clinically indicated at this time - Low-dose insulin sliding scale DC Critical illness polyneuropathy -Continue PT daily, out of bed to chair, functional maintenance of extremities 4 Open wounds,B/L upper extremities multiple stages -Reconsult wound care 02/11 B/L upper extremities -Digits on hand reddened and edematous Facial spasms/twitching -02/12 CT brain normal, possible left mastoiditis, ID aware -Calcium level 9.1, BMP normal -ENT consult -F/U MRI brain - EEG 02/12-mouth and facial twitching noted. The discharge could be of epileptiform significant, excessive artifact study limited. GI Prophylaxis: -- Protonix IV BID DVT Prophylaxis: - SCDs - No chemical DVT Prophylaxis, OOB to chair and daily functional maintenance of extremities x 4 ACCESS: --PIV x 2. Discuss BUS PERSON at bedside. Level 2 Contacted spouse Clemencia Smith, updated her yesterday and again today, her vital results of EEG and CT. Plan for MRI of the brain today, an ENT consult. Physician Fe Poole Problem Qualifiers (1) Respiratory failure: Qualified Code: J96.00 - Acute respiratory failure, unspecified whether with hypoxia or hypercapnia (2) Altered mental status: Qualified Code: R41.0 - Delirium (3) Sepsis: Qualified Code: A41.9 - Sepsis, due to unspecified organism Fe Poole MD Feb 15, 2016 10:10
[2016-02-15] MEDS: HYDROmorphone HCL PF 4 MG/ML VIAL IV PUSH PRN (12:00)
[2016-02-15] MEDS ORDERED: GADODIAMIDE PF 287 MG/ML 5 ML VIAL (for RAD MRI) IV ONE (12:57)
--- NOTE | 2016-02-15 13:26 | RADRPT ---
EXAM DATE/TIME: 02/15/2016 12:16 [facility] COMPARISON: CT BRAIN W/O CONTRAST, December 02, 2015, 11:00. CT BRAIN W/O CONTRAST, February 13, 2016, 12:12. INDICATIONS : Altered mental status. Seizures. CONTRAST: 15 cc Omniscan (gadodiamide) IV MEDICAL HISTORY : Rheumatoid arthritis. Hepatitis C. Necrotizing faciatis. SURGICAL HISTORY : Splenectomy. back surgery, hip surgery, iliostomy, j-tube, rt/lt arm I&D ENCOUNTER: Subsequent ACUITY: 3 months PAIN SCORE: 0/10 LOCATION: cranial TECHNIQUE: Multiplanar, multisequence MRI of the brain was performed both prior to and following the administrat ion of paramagnetic contrast. FINDINGS: CEREBRUM: The ventricles are normal for age. No evidence of midline shift, mass lesion, hemorrhage or acute in farction. No extraaxial fluid collections are seen. The pituitary gland and suprasellar cistern are normal in configuration. WHITE MATTER: Minimal periventricular and minimal dispersed demyelinization deep white matter most likely microvasc ular ischemic origin POSTERIOR FOSSA: The cerebellum and brainstem are intact. The 4th ventricle is midline. The cerebellopontine angle is unremarkable. The cerebellar tonsils are normal in position. DIFFUSION IMAGING: No focal areas of restricted diffusion are seen. No evidence of acute infarction. EXTRACRANIAL: The visualized portions of the orbits and paranasal sinuses are unremarkable. There is stable fluid i n the tip of the right mastoid air cells and apparent new fluid in air cells of the left mastoid. POST-CONTRAST: No abnormal areas of parenchymal or dural enhancement. No evidence of blood-brain barrier breakdown. CONCLUSION: Minimal chronic fluid in right mastoid air cells toward the tip. New fluid in air cells of the left m astoid suggesting mastoiditis. Intracranially negative other than some minimal deep white matter and p eriventricular probable microvascular ischemic demyelinization.. Jared Medina MD on February 15, 2016 at 13:21 Board Certified Radiologist. This report was verified electronically.
--- NOTE | 2016-02-15 19:43 | HHI.IDPN ---
Subjective Subjective Remarks Remains with same focal neuro deficit:unablt no longer to mouth words Afebrile Slowly tolerating TF @ 35 Not tolerating CPAP Antibiotics fortaz Lines periferal L foot Past Medical History RA HCV sp splenectomy Allergies: Coded Allergies: Compazine (Verified Allergy, Severe, VOMITING, RASH, 08/26/14) SLURRED SPEECH, MIGRAINES Demerol (Verified Allergy, Severe, VOMITING, 08/26/14) Levaquin (Verified Allergy, Severe, 08/26/14) Penicillin (Verified Allergy, Severe, Rash, 08/26/14) Phenergan (Verified Allergy, Severe, VOMITING, 08/26/14) Uncoded Allergies: ANTI-CONVULSIVES (Allergy, Severe, MIGRAINES, SLURRED SPEECH,, 01/23/14) Objective . Vital Signs Date Time Temp Pulse Resp B/P Pulse Ox O2 Delivery O2 Flow Rate FiO2 02/15/16 19:17 97 40 02/15/16 18:00 92 02/15/16 16:35 96 40 02/15/16 16:00 106 02/15/16 16:00 40 02/15/16 16:00 99.2 106 25 136/71 97 02/15/16 14:00 98 02/15/16 12:00 99.0 128 18 157/86 97 02/15/16 12:00 40 02/15/16 12:00 128 02/15/16 10:12 94 40 02/15/16 10:00 110 02/15/16 08:34 40 02/15/16 08:00 102 02/15/16 08:00 98.3 102 20 144/76 91 02/15/16 08:00 40 02/15/16 07:27 95 T-piece 40 02/15/16 07:00 98 Mechanical Ventilator 50 02/15/16 06:00 88 02/15/16 04:00 98.1 97 23 134/71 97 02/15/16 04:00 97 02/15/16 04:00 40 02/15/16 03:59 99 40 02/15/16 02:00 102 02/15/16 01:20 98 40 02/15/16 00:00 98.3 91 15 117/65 97 02/15/16 00:00 102 02/15/16 00:00 40 02/14/16 23:00 96 40 02/14/16 22:00 102 02/14/16 21:05 20 02/14/16 20:00 92 02/14/16 20:00 40 02/14/16 20:00 98.1 92 26 131/70 95 02/14/16 20:00 96 Mechanical Ventilator 40 02/14/16 02/14/16 02/15/16 15:00 23:00 07:00 Intake Total 537 ml 546 ml 625 ml Output Total 700 ml 450 ml 600 ml Balance -163 ml 96 ml 25 ml IV Total 100 ml 100 ml 100 ml Tube Feeding 237 ml 246 ml 325 ml Other 200 ml 200 ml 200 ml Output Urine Total 600 ml 400 ml 500 ml Stool Total 100 ml 50 ml 100 ml . Laboratory Tests Test 02/14/16 02/15/16 03:51 04:03 White Blood Count 18.3 TH/MM3 18.3 TH/MM3 Red Blood Count 2.48 MIL/MM3 2.58 MIL/MM3 Hemoglobin 7.4 GM/DL 7.5 GM/DL Hematocrit 23.2 % 23.9 % Mean Corpuscular Volume 93.4 FL 92.7 FL Mean Corpuscular Hemoglobin 29.8 PG 28.9 PG Mean Corpuscular Hemoglobin 31.9 % 31.2 % Concent Red Cell Distribution Width 16.9 % 16.7 % Platelet Count 637 TH/MM3 698 TH/MM3 Mean Platelet Volume 9.3 FL 9.0 FL Neutrophils (%) (Auto) 63.8 % 61.9 % Lymphocytes (%) (Auto) 13.5 % 15.2 % Monocytes (%) (Auto) 17.4 % 16.4 % Eosinophils (%) (Auto) 4.3 % 5.4 % Basophils (%) (Auto) 1.0 % 1.1 % Neutrophils # (Auto) 11.7 TH/MM3 11.3 TH/MM3 Lymphocytes # (Auto) 2.5 TH/MM3 2.8 TH/MM3 Monocytes # (Auto) 3.2 TH/MM3 3.0 TH/MM3 Eosinophils # (Auto) 0.8 TH/MM3 1.0 TH/MM3 Basophils # (Auto) 0.2 TH/MM3 0.2 TH/MM3 CBC Comment AUTO DIFF AUTO DIFF Differential Total Cells 100 100 Counted Neutrophils % (Manual) 63 % 64 % Band Neutrophils % 2 % 1 % Lymphocytes % 7 % 16 % Monocytes % 19 % 12 % Eosinophils % 4 % 2 % Basophils % 1 % Neutrophils # (Manual) 12.6 TH/MM3 12.8 TH/MM3 Metamyelocytes 1 % 2 % Myelocytes 3 % 3 % Nucleated Red Blood Cells 1 /100 WBC Differential Comment FINAL DIFF FINAL DIFF MANUAL MANUAL Platelet Estimate HIGH HIGH Platelet Morphology Comment NORMAL NORMAL Keratocytes OCC Laboratory Tests Test 02/14/16 02/15/16 03:51 04:03 Sodium Level 143 MEQ/L 144 MEQ/L Potassium Level 3.7 MEQ/L 3.4 MEQ/L Chloride Level 109 MEQ/L 107 MEQ/L Carbon Dioxide Level 25.0 MEQ/L 25.6 MEQ/L Anion Gap 9 MEQ/L 11 MEQ/L Blood Urea Nitrogen 61 MG/DL 59 MG/DL Creatinine 1.18 MG/DL 1.24 MG/DL Estimat Glomerular Filtration 65 ML/MIN 61 ML/MIN Rate Random Glucose 112 MG/DL 124 MG/DL Calcium Level 9.3 MG/DL 9.6 MG/DL Phosphorus Level 3.6 MG/DL 3.3 MG/DL Magnesium Level 2.1 MG/DL 2.2 MG/DL Total Bilirubin 0.4 MG/DL 0.4 MG/DL Aspartate Amino Transf 53 U/L 47 U/L (AST/SGOT) Alanine Aminotransferase 42 U/L 38 U/L (ALT/SGPT) Alkaline Phosphatase 436 U/L 450 U/L Total Protein 5.4 GM/DL 5.6 GM/DL Albumin 1.0 GM/DL 1.1 GM/DL Ammonia 31 MCMOL/L Microbiology Date/Time Procedure Status Source Growth 02/13/16 02:30 Gram Stain - Final Complete Sputum Endotracheal 02/13/16 02:30 Sputum Culture - Final Complete Stenotrophomonas Maltophilia Imaging Last Impressions Brain MRI 02/15/16 0000 Signed Impressions: Service Date/Time: Monday, February 15, 2016 12:16 - CONCLUSION: Minimal chronic fluid in right mastoid air cells toward the tip. New fluid in air cells of the left mastoid suggesting mastoiditis. Intracranially negative other than some minimal deep white matter and periventricular probable microvascular ischemic demyelinization.. Jared Medina MD Chest X-Ray 02/13/16 0600 Signed Impressions: Service Date/Time: Saturday, February 13, 2016 04:25 - CONCLUSION: 1. No significant change. Consolidative opacity remains in the left lung base which could represent infiltrate and/or effusion. 2. Cardiomegaly is again noted. Owen Arzola MD Head CT 02/13/16 0000 Signed Impressions: Service Date/Time: Saturday, February 13, 2016 12:12 - CONCLUSION: 1. No acute intracranial abnormality. 2. New opacification of the left mastoid air cells. Clinical evaluation for acute left mastoiditis suggested. Osmar Chavez Jr., MD Upper Extremity Ultrasound 01/30/16 0000 Signed Impressions: Service Date/Time: Saturday, January 30, 2016 11:18 - CONCLUSION: Limited exam without thrombus identified. Raudel Mckinney MD FACR Thoracentesis 01/28/16 0000 Signed Impressions: Service Date/Time: Thursday, January 28, 2016 12:54 - CONCLUSION: Uncomplicated CT-guided thoracentesis. Ramone Hall MD Abdomen/Pelvis CT 01/23/16 0800 Signed Impressions: Service Date/Time: Saturday, January 23, 2016 09:05 - CONCLUSION: Relative to the prior study the marked distention of the stomach is reduced. There is a persistent 5 cm left upper quadrant sub-diaphragmatic fluid collection and drain in the left upper quadrant. Patient is post splenectomy. Jejunostomy is in place and ostomy is noted in the right lower abdomen. No free fluid or free air is appreciated and there is no evidence of obstruction. Bilateral pleural effusions persists small but slightly larger on the right with left lower lobe consolidation. Jared Medina MD ADDENDUM: I have reviewed the images with respect to her request made for left subdiaphragmatic drainage of a fluid collection. No fluid collection is observed within the left upper quadrant. There is residual splenic tissue that measures 5 cm in diameter with Hounsfield units 62. The stomach fundus extends up into the subdiaphragmatic location. No subdiaphragmatic fluid collection is observed. Surgical drains are noted. Osmar Chavez Jr., MD Chest CT 01/05/16 0000 Signed Impressions: Service Date/Time: Tuesday, January 05, 2016 23:15 - CONCLUSION: 1. Persistent left lower lobar consolidation. Improved consolidative infiltrates in the right lower lung. 2. Interval increase size bilateral pleural effusions , left greater than right. Osmar Alegria MD Celiac/Hepatic Arteriogram 12/27/15 0000 Signed Impressions: Service Date/Time: December 13:41 - CONCLUSION: 1. No active GI bleed identified. Robert Mckinney MD Abdomen X-Ray 12/18/15 0000 Signed Impressions: Service Date/Time: Friday, December 18, 2015 16:05 - CONCLUSION: Feeding tube tip is at the gastric antrum. Arnaldo Elias MD Physical Exam GENERAL: On vent , awake fully alert SKIN: no jaundice. residual generalysed edema HEENT: no icterus, no nasal discharge NECK: Trach in place CARDIOVASCULAR: systolic murmur in base of heart RESPIRATORY/CHEST: few rhonchi on auscultation. GASTROINTESTINAL: dressing in place Stoma with brown stool soft, thick; looks OK Incision packed minimal amount of serous drainage GENITOURINARY: Sandoval catheter in place with clear light yellow urine with sediment MUSCULOSKELETAL: Extremities no cyanosis, persistent+ 1 edema on BLE RUE with with VAC LUE with dressignin place NEUROLOGICAL: fully awake and alert , makes eye contact and follows commands less interactive Unable to mouth words -new x 2 days Difficulty with sticking toungue out Assessment & Plan Remarks Sepsis 2/2 colon perforation and intraperitoneal gross contamination and Intra abdominal peritonitis (Cdiff Colitis. vs ischemia) - sp subtotal colectomy and ileostomy RUE severe nec fasc due to MSSA - clinically resolved infx, poor healing Recurrent life threatening upper GI bleeding 2/2 bleeding ulcers: stopped Persistent leukocytosis - improving C. parapsilosa fungemia : resolved New acute left mastoiditis ? new PNA - growing Stenotroph malto Sp sz, now aphasic ? postictal - MRI neg for stroke/bleed PLAN: cont fortaz consult neurology fu temps, wbc dw spouse dw RN Argelia Becerra MD Feb 15, 2016 19:43
[2016-02-16] VITALS (18 sets, daily range): BP systolic 103–161; BP diastolic 64–83; PULSE 100–126; RESP 15–30; TEMP 98.6–101; O2SAT 95–99
[2016-02-16] MEDS: FREE WATER G-TUBE SCH ×3 (01:00→17:00)
[2016-02-16] MEDS: METOPROLOL TARTRATE 25 MG TAB TUBE SCH ×4 (01:24→18:34)
[2016-02-16] MEDS: oxyCODONE HCL ORAL CONC 20 MG/ML SYRINGE PO SCH ×5 (01:24→18:35)
[2016-02-16] MEDS: CHLORHEXIDINE GLUCONATE 2 % 1 PACK (2 CLOTHS) TOP SCH (04:00)
[2016-02-16 04:36] LABS: HEMATOCRIT 25.3 % (39.0-51.0); MEAN CELL VOLUME 93.4 FL (80.0-100.0); MEAN CORPUSCULAR HEMOGLOBIN 29.4 PG (27.0-34.0); MEAN CORPUSCULAR HGB CONC 31.5 % (32.0-36.0); PLATELET COUNT 730 TH/MM3 (150-450); RED BLOOD COUNT 2.71 MIL/MM3 (4.50-5.90); RED CELL DISTRIBUTION WIDTH 16.8 % (11.6-17.2); REVIEW FLAG FINAL; WHITE BLOOD COUNT 18.9 TH/MM3 (4.0-11.0)
[2016-02-16 04:54] LABS: BICARBONATE 26.2 MEQ/L (21.0-32.0); MAGNESIUM 2.1 MG/DL (1.5-2.5); POTASSIUM 3.7 MEQ/L (3.5-5.1)
[2016-02-16] MEDS: PANTOPRAZOLE SODIUM 40 MG VIAL IV PUSH SCH ×2 (05:36→18:34)
[2016-02-16] MEDS: FUROSEMIDE 20 MG/2 ML VIAL IV PUSH SCH ×2 (05:36→09:00)
[2016-02-16] MEDS: cefTAZidime INJ 2,000 MG in SODIUM CHLORIDE 0.9% INJ 100 ML IV SCH ×2 (05:37→12:00)
[2016-02-16] MEDS: NEOMYCIN/POLYMYXIN/BACITRACIN OINT 15 GM TUBE TOPICAL SCH (09:00)
[2016-02-16] MEDS: SILVER SULFADIAZINE 1% CR 400 GM JAR TOPICAL SCH (09:00)
[2016-02-16] MEDS: POVIDONE IODINE 10% OINT 30 GM TUBE TOPICAL SCH (09:00)
[2016-02-16] MEDS: FERROUS SULFATE 300 MG /5ML UDC TUBE SCH (09:15)
[2016-02-16] MEDS: MULTIVITAMINS LIQUID 5 ML UDC TUBE SCH (09:16)
[2016-02-16] MEDS: TAMSULOSIN HCL 0.4 MG CAP PO SCH (09:16)
[2016-02-16] MEDS: CHLORHEXIDINE 0.12% (ORAL KIT) 15 ML CUP MT SCH (09:20)
[2016-02-16] MEDS: ACETAMINOPHEN 650 MG/20.3 ML UDC TUBE PRN (12:46)
--- NOTE | 2016-02-16 15:58 | HHI.CCPN ---
Subjective Remarks/Hospital Course 55-year-old male brought by EMS with altered mental status. He has history of chronic opiate medications including methadone and morphine that he takes for pain management and hence they gave him Narcan IV which brought the GCS up to 13. The blood glucose was 74. He has open wounds from his right upper and bilateral lower extremities. He has history of hepatitis C. Last week he was pealing and eating shrimps. Bedside blood sugar was 76 in the ER. He was tachycardic in 1 teens and was intubated in the ED for airway protection. Admitted to ICU with sepsis due to Staph Aureus hand infection and E. Coli bacteriemia. Hospital course complicated by perforated ascending colon with extended right hemicolectomy, primary ileocolic anastamosis, open abdomen, septic shock, acute hypoxic and hypercarbic respiratory failure 12/19. Taken back to the OR 12/20 afternoon for washout and completion colectomy. 12/25 Hemoglobin dropped to 4.1. Noted to have bloody drainage from G-tube and dorsal ileostomy with black stool output due to 2 gastric ulcers bleeding, stomach a significant part had decreased discoloration indicating probable ischemia. s/p epi injection and cauterization. 12/27Tracheostomy placed. 01/06: Underwent exploratory laparotomy with findings of bleeding gastric ulcer which was oversewn by Dr. Verdin abdomen left open with wound VAC in place. Now closed. On trach collar occasionally alternation intermittently with a CPAP. 02/10 Tmax 100.0. The patient has been maintain on CPAP 15 over 5/24 hours without difficulty. O2 saturations greater than 92%. Plan for trach collar trials today. 02/11 Tmax 98.4. The patient was unable to begin trach collar trials yesterday. The patient became tachypnea, RR 50's on CPAP at 4:30 yesterday requiring mechanical ventilation being placed on a rate.Patient has been maintained on mechanical ventilation overnight without any respiratory distress. O2 saturation remains 9798%. No episodes of nausea last night the patient tolerated tube feeds at 50/cc, will advance to goal today. 02/12 Afebrile. This a.m., upon examination, the patient spontaneously had eyes open but was not responding to commands as previously. Noted facial twitching eye twitching specifically the right side of face. The patient was not mouthing any words. Concern for subclinical seizure activity, or elevated ammonia levels. Ammonia level drawn, CT scan obtained EEG pending. Patient also did not tolerate tube feeds overnight. 02/13. Patient has tolerated tube feeds for the last 24 hours, noted albumin level decreased slightly from 1.1-1.0. Nutrition reconsulted for possible supplementation aids. Patient underwent EEG yesterday,, inconclusive could be of epileptiform significant, study was limited due to excessive artifact. CT brain revealed possible left mastoiditis, ammonia level not elevated .Upon examination, patient continues to have facial twitching, intermittently. 02/14 Afebrile. The patient continues to tolerate tube feeds currently at 40 cc /hour, no nausea last evening. Continue noted facial twitching by staff, the patient will go undergo MRI studies today. The patient was able to tolerate CPAP trials for 12 hours yesterday, and class placed back on the vent at 6 PM. 02/15: afebrile. neuro symptoms have resolved. now talking and interactive. smiling. Objective Vital Signs Date Time Temp Pulse Resp B/P Pulse Ox O2 Delivery O2 Flow Rate FiO2 02/16/16 15:44 99 50 02/16/16 12:00 101.0 105 30 161/83 02/16/16 07:00 Mechanical Ventilator Intake and Output 02/15/16 02/15/16 02/15/16 07:59 15:59 23:59 Intake Total 625 ml 719 ml 895 ml Output Total 600 ml 1000 ml 700 ml Balance 25 ml -281 ml 195 ml Result Diagram: 02/16/16 0356 02/16/16 0356 Imaging Last Impressions Chest X-Ray 02/11/16 0600 Signed Impressions: Service Date/Time: Thursday, February 11, 2016 05:41 - CONCLUSION: Rotated study demonstrating no significant interval change. Owen Arzola MD Upper Extremity Ultrasound 01/30/16 0000 Signed Impressions: Service Date/Time: Saturday, January 30, 2016 11:18 - CONCLUSION: Limited exam without thrombus identified. Raudel Mckinney MD FACR Thoracentesis 01/28/16 0000 Signed Impressions: Service Date/Time: Thursday, January 28, 2016 12:54 - CONCLUSION: Uncomplicated CT-guided thoracentesis. Ramone Hall MD Abdomen/Pelvis CT 01/23/16 0800 Signed Impressions: Service Date/Time: Saturday, January 23, 2016 09:05 - CONCLUSION: Relative to the prior study the marked distention of the stomach is reduced. There is a persistent 5 cm left upper quadrant sub-diaphragmatic fluid collection and drain in the left upper quadrant. Patient is post splenectomy. Jejunostomy is in place and ostomy is noted in the right lower abdomen. No free fluid or free air is appreciated and there is no evidence of obstruction. Bilateral pleural effusions persists small but slightly larger on the right with left lower lobe consolidation. Jared Medina MD ADDENDUM: I have reviewed the images with respect to her request made for left subdiaphragmatic drainage of a fluid collection. No fluid collection is observed within the left upper quadrant. There is residual splenic tissue that measures 5 cm in diameter with Hounsfield units 62. The stomach fundus extends up into the subdiaphragmatic location. No subdiaphragmatic fluid collection is observed. Surgical drains are noted. Osmar Chavez Jr., MD Chest CT 01/05/16 0000 Signed Impressions: Service Date/Time: Tuesday, January 05, 2016 23:15 - CONCLUSION: 1. Persistent left lower lobar consolidation. Improved consolidative infiltrates in the right lower lung. 2. Interval increase size bilateral pleural effusions , left greater than right. Osmar Alegria MD Celiac/Hepatic Arteriogram 12/27/15 0000 Signed Impressions: Service Date/Time: December 13:41 - CONCLUSION: 1. No active GI bleed identified. Robert Mckinney MD Abdomen X-Ray 12/18/15 0000 Signed Impressions: Service Date/Time: Friday, December 18, 2015 16:05 - CONCLUSION: Feeding tube tip is at the gastric antrum. Arnaldo Elias MD Head CT 12/02/15 1013 Signed Impressions: Service Date/Time: Wednesday, December 02, 2015 11:00 - CONCLUSION: 1. No intracranial abnormality is seen. 2. Air-fluid level in the right maxillary sinus. Arnaldo Reyes MD Last 24 hours Impressions Chest X-Ray 02/05/16 0600 Signed Impressions: Service Date/Time: Friday, February 05, 2016 04:11 - CONCLUSION: Worsening/developing effusions and basilar consolidation, currently left worse than right. Arnaldo Elias MD Objective Remarks GENERAL: Middle-aged chronically critically ill, lying in bed , awake, alert, interactive, mouthing words. HEENT: NCAT. mucous membranes moist. NECK: [address], no active bleeding, no evidence of infection. RESPIRATORY: Normal respiratory rate. Breath sounds present bilaterally, clear without wheezing or rhonchi. CARDIOVASCULAR: Regular, tachycardic. Sinus tach on monitor. No murmurs rubs or gallops. GASTROINTESTINAL: J tube in place with tube feeds running @ 40cc/hr.Ostomy with brown colored stool. MUSCULOSKELETAL: Pitting edema 2+ bilateral feet and hands. Gauze dressing bilateral upper extremity Multiple open wounds in the lower extremity with gauze dressing. NEURO: Awake. Alert, interactive. RASS 0, CAM -. mouthing words. 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 Miller). - Trach exchanged 8.0 Shiley with cuff on 01/19 - DuoNeb q6h and as needed -On CPAP today for 12 hours - Last CT guided thoracentesis 01/27 - CXR 02/11 unchanged - Continue fluid mobilization with lasix Leukocytosis Bandemia - re-cultured 02/07 - Bands 6->1->11->2->1 today - ID following, Dr. Becerra - WBC 19 ->18 today Sputum Culture 02/12 Stenotrophomonas Maltophilia Sputum Culture 02/07 Stenotrophomonas Maltophilia Blood Culture 02/07 NGTD Urine Culture 02/02 neg NIGEL - on home CPAP - Tracheostomy - not an issue while tracheostomy in place Hyperkalemia Hypokalemia - Hyperkalemia - improving with Lasix - Resolved - Kayexalate discontinued -Repletion KCL 40 meq IV piggyback today Hypernatremia - continue Free water flushes 200 q 8 hr - Urine eos negative. - Avoiding nephrotoxins. - Monitor BMP - Continue to replete electrolytes per ICU protocol Perforated right colon with ischemic colitis - s/p ex-lap, extended right hemicolectomy with primary ileocolic anastamosis - s/p Ex lap 01/05 for bleeding gastric ulcer - management per GS - no acute issues Acute protein calorie malnutrition - severe -Nutrition reconsulted, for recommendations regarding supplementation - continue Beneprotein 1 packet QID - Prealbumin 14 on 01/26 - Jevity goal rate to 65/hr based on nutrition most recent recommendations @ goal - repeat pre-albumin level 6 Chronic hepatitis C - s/p interferon/ribavirin years ago - Liver biopsy 04/14/08 - monitor for liver failure -Ammonia level 31 Gastric ulcer disease - EGD 12/26/15 showed 2 large gastric ulcers with active bleeding - status post epinephrine infusion and cauterization - To OR 01/05 with GI bleeding and hemorrhagic shock. - gastrotomy with ligation of gastric ulcer, lysis of adhesions, wound VAC placement - Continue Protonix 40 g IV q12h Acute Anemia - secondary to acute blood loss - Hgb stable 7.5, will transfuse for hemoglobin less than 7 - last transfused 1 unit PRBC 02/02 - Melena resolved. - No obvious active bleeding. - Ferrous Sulfate 300mg bid Thrombocytopenia - resolved - Hep PLT ab negative on 12/03 - due to chronic liver disease - no active bleeding Hyperglycemia of Critical Illness - off Insulin drip - Levemir BID on hold, not clinically indicated at this time - Low-dose insulin sliding scale DC Critical illness polyneuropathy -Continue PT daily, out of bed to chair, functional maintenance of extremities 4 Open wounds,B/L upper extremities multiple stages -Reconsult wound care 02/11 B/L upper extremities -Digits on hand reddened and edematous Facial spasms/twitching -02/12 CT brain normal, possible left mastoiditis, ID aware -Calcium level 9.1, BMP normal -ENT consult -02/14 MRI brain: no acute disease. - EEG 02/12-mouth and facial twitching noted. The discharge could be of epileptiform significant, excessive artifact study limited. GI Prophylaxis: -- Protonix IV BID DVT Prophylaxis: - SCDs - No chemical DVT Prophylaxis, OOB to chair and daily functional maintenance of extremities x 4 ACCESS: --PIV x 2. Discuss [employer] at bedside. Problem Qualifiers (1) Respiratory failure: Qualified Code: J96.00 - Acute respiratory failure, unspecified whether with hypoxia or hypercapnia (2) Altered mental status: Qualified Code: R41.0 - Delirium (3) Sepsis: Qualified Code: A41.9 - Sepsis, due to unspecified organism Jeyson Fernández MD Feb 16, 2016 15:58
--- NOTE | 2016-02-16 17:18 | HHI.IDPN ---
Subjective Subjective Remarks articulilating again Spiked fever up to 101 remains on vent tolerating TF Antibiotics fortaz Lines periferal L foot Past Medical History RA HCV sp splenectomy Allergies: Coded Allergies: Compazine (Verified Allergy, Severe, VOMITING, RASH, 08/26/14) SLURRED SPEECH, MIGRAINES Demerol (Verified Allergy, Severe, VOMITING, 08/26/14) Levaquin (Verified Allergy, Severe, 08/26/14) Penicillin (Verified Allergy, Severe, Rash, 08/26/14) Phenergan (Verified Allergy, Severe, VOMITING, 08/26/14) Uncoded Allergies: ANTI-CONVULSIVES (Allergy, Severe, MIGRAINES, SLURRED SPEECH,, 01/23/14) Objective . Vital Signs Date Time Temp Pulse Resp B/P Pulse Ox O2 Delivery O2 Flow Rate FiO2 02/16/16 16:00 98.6 111 15 103/64 97 02/16/16 16:00 50 02/16/16 16:00 111 02/16/16 15:44 99 50 02/16/16 14:00 109 02/16/16 12:00 40 02/16/16 12:00 101.0 105 30 161/83 99 02/16/16 12:00 105 02/16/16 11:32 95 40 02/16/16 10:00 111 02/16/16 09:10 40 02/16/16 08:00 100 02/16/16 08:00 40 02/16/16 08:00 99.0 100 21 139/70 98 02/16/16 07:24 99 40 02/16/16 07:00 Mechanical Ventilator 02/16/16 06:00 110 02/16/16 04:00 40 02/16/16 04:00 98.7 102 24 131/69 96 02/16/16 04:00 106 02/16/16 03:31 98 40 02/16/16 02:00 102 02/16/16 00:50 95 40 02/16/16 00:00 40 02/16/16 00:00 99.0 116 20 138/70 96 02/16/16 00:00 116 02/15/16 22:00 112 02/15/16 20:00 99.0 100 20 130/71 97 02/15/16 20:00 100 02/15/16 20:00 40 02/15/16 19:17 97 40 02/15/16 19:00 98 Mechanical Ventilator 50 02/15/16 18:00 92 02/15/16 02/15/16 02/16/16 14:59 22:59 06:59 Intake Total 719 ml 895 ml 803 ml Output Total 1000 ml 700 ml 700 ml Balance -281 ml 195 ml 103 ml IV Total 199 ml 90 ml 90 ml Tube Feeding 320 ml 605 ml 413 ml Other 200 ml 200 ml 300 ml Output Urine Total 950 ml 650 ml 600 ml Stool Total 50 ml 50 ml 100 ml . Laboratory Tests Test 02/15/16 02/16/16 04:03 03:56 White Blood Count 18.3 TH/MM3 18.9 TH/MM3 Red Blood Count 2.58 MIL/MM3 2.71 MIL/MM3 Hemoglobin 7.5 GM/DL 8.0 GM/DL Hematocrit 23.9 % 25.3 % Mean Corpuscular Volume 92.7 FL 93.4 FL Mean Corpuscular Hemoglobin 28.9 PG 29.4 PG Mean Corpuscular Hemoglobin 31.2 % 31.5 % Concent Red Cell Distribution Width 16.7 % 16.8 % Platelet Count 698 TH/MM3 730 TH/MM3 Mean Platelet Volume 9.0 FL 9.0 FL Neutrophils (%) (Auto) 61.9 % Lymphocytes (%) (Auto) 15.2 % Monocytes (%) (Auto) 16.4 % Eosinophils (%) (Auto) 5.4 % Basophils (%) (Auto) 1.1 % Neutrophils # (Auto) 11.3 TH/MM3 Lymphocytes # (Auto) 2.8 TH/MM3 Monocytes # (Auto) 3.0 TH/MM3 Eosinophils # (Auto) 1.0 TH/MM3 Basophils # (Auto) 0.2 TH/MM3 CBC Comment AUTO DIFF Differential Total Cells 100 Counted Neutrophils % (Manual) 64 % Band Neutrophils % 1 % Lymphocytes % 16 % Monocytes % 12 % Eosinophils % 2 % Neutrophils # (Manual) 12.8 TH/MM3 Metamyelocytes 2 % Myelocytes 3 % Differential Comment FINAL DIFF MANUAL Platelet Estimate HIGH Platelet Morphology Comment NORMAL Keratocytes OCC Laboratory Tests Test 02/15/16 02/15/16 02/16/16 04:03 21:20 03:56 Sodium Level 144 MEQ/L 146 MEQ/L Potassium Level 3.4 MEQ/L 3.9 MEQ/L 3.7 MEQ/L Chloride Level 107 MEQ/L 109 MEQ/L Carbon Dioxide Level 25.6 MEQ/L 26.2 MEQ/L Anion Gap 11 MEQ/L 11 MEQ/L Blood Urea Nitrogen 59 MG/DL 53 MG/DL Creatinine 1.24 MG/DL 1.24 MG/DL Estimat Glomerular Filtration 61 ML/MIN 61 ML/MIN Rate Random Glucose 124 MG/DL 129 MG/DL Calcium Level 9.6 MG/DL 9.2 MG/DL Phosphorus Level 3.3 MG/DL 2.7 MG/DL Magnesium Level 2.2 MG/DL 2.1 MG/DL Total Bilirubin 0.4 MG/DL Aspartate Amino Transf 47 U/L (AST/SGOT) Alanine Aminotransferase 38 U/L (ALT/SGPT) Alkaline Phosphatase 450 U/L Ammonia 31 MCMOL/L Total Protein 5.6 GM/DL Albumin 1.1 GM/DL Imaging Last Impressions Brain MRI 02/15/16 0000 Signed Impressions: Service Date/Time: Monday, February 15, 2016 12:16 - CONCLUSION: Minimal chronic fluid in right mastoid air cells toward the tip. New fluid in air cells of the left mastoid suggesting mastoiditis. Intracranially negative other than some minimal deep white matter and periventricular probable microvascular ischemic demyelinization.. Jared Medina MD Chest X-Ray 02/13/16 0600 Signed Impressions: Service Date/Time: Saturday, February 13, 2016 04:25 - CONCLUSION: 1. No significant change. Consolidative opacity remains in the left lung base which could represent infiltrate and/or effusion. 2. Cardiomegaly is again noted. Owen Arzola MD Head CT 02/13/16 0000 Signed Impressions: Service Date/Time: Saturday, February 13, 2016 12:12 - CONCLUSION: 1. No acute intracranial abnormality. 2. New opacification of the left mastoid air cells. Clinical evaluation for acute left mastoiditis suggested. Osmar Chavez Jr., MD Upper Extremity Ultrasound 01/30/16 0000 Signed Impressions: Service Date/Time: Saturday, January 30, 2016 11:18 - CONCLUSION: Limited exam without thrombus identified. Raudel Mckinney MD FACR Thoracentesis 01/28/16 0000 Signed Impressions: Service Date/Time: Thursday, January 28, 2016 12:54 - CONCLUSION: Uncomplicated CT-guided thoracentesis. Ramone Hall MD Abdomen/Pelvis CT 01/23/16 0800 Signed Impressions: Service Date/Time: Saturday, January 23, 2016 09:05 - CONCLUSION: Relative to the prior study the marked distention of the stomach is reduced. There is a persistent 5 cm left upper quadrant sub-diaphragmatic fluid collection and drain in the left upper quadrant. Patient is post splenectomy. Jejunostomy is in place and ostomy is noted in the right lower abdomen. No free fluid or free air is appreciated and there is no evidence of obstruction. Bilateral pleural effusions persists small but slightly larger on the right with left lower lobe consolidation. Jared Medina MD ADDENDUM: I have reviewed the images with respect to her request made for left subdiaphragmatic drainage of a fluid collection. No fluid collection is observed within the left upper quadrant. There is residual splenic tissue that measures 5 cm in diameter with Hounsfield units 62. The stomach fundus extends up into the subdiaphragmatic location. No subdiaphragmatic fluid collection is observed. Surgical drains are noted. Osmar Chavez Jr., MD Chest CT 01/05/16 0000 Signed Impressions: Service Date/Time: Tuesday, January 05, 2016 23:15 - CONCLUSION: 1. Persistent left lower lobar consolidation. Improved consolidative infiltrates in the right lower lung. 2. Interval increase size bilateral pleural effusions , left greater than right. Osmar Alegria MD Celiac/Hepatic Arteriogram 12/27/15 0000 Signed Impressions: Service Date/Time: December 13:41 - CONCLUSION: 1. No active GI bleed identified. Robert Mckinney MD Abdomen X-Ray 12/18/15 0000 Signed Impressions: Service Date/Time: Friday, December 18, 2015 16:05 - CONCLUSION: Feeding tube tip is at the gastric antrum. Arnaldo Elias MD Physical Exam GENERAL: On vent , awake fully alert SKIN: no jaundice. residual generalysed edema HEENT: no icterus, no nasal discharge NECK: Trach in place CARDIOVASCULAR: systolic murmur in base of heart RESPIRATORY/CHEST: scattered rhonchi on auscultation. GASTROINTESTINAL: dressing in place Stoma with brown stool soft, thick; looks OK Incision packed minimal amount of serous drainage GENITOURINARY: Sandoval catheter in place with clear light yellow urine with sediment MUSCULOSKELETAL: Extremities no cyanosis, persistent+ 1 edema on BLE RUE with with VAC LUE with dressignin place NEUROLOGICAL: fully awake and alert , makes eye contact and follows commands fully interactive Able to mouth words Articulated Assessment & Plan Remarks Sepsis 2/2 colon perforation and intraperitoneal gross contamination and Intra abdominal peritonitis (Cdiff Colitis. vs ischemia) - sp subtotal colectomy and ileostomy RUE severe nec fasc due to MSSA - clinically resolved infx, poor healing Recurrent life threatening upper GI bleeding 2/2 bleeding ulcers: stopped Persistent leukocytosis - improving C. parapsilosa fungemia : resolved New acute left mastoiditis ? new PNA - growing Stenotroph malto Sp sz, now aphasic ? postictal - MRI neg for stroke/bleed New fever PLAN: cont fortaz consult neurology rechk BC UA, C+S rechk sputum clx Dw Dr Jolene puente spouse dw RN Argelia Becerra MD Feb 16, 2016 17:18
[2016-02-16 21:45] LABS: BLOOD, URINE TRACE (NEG); COMMENT (UR) CATH-CULTURE IND; CULTURE IF INDICATED CATH CULTURE IND; GLUCOSE,URINE NEG (NEG); KETONE, URINE NEG (NEG); MUCUS URINE FEW /lpf (OCC); NITRITE,URINE NEG (NEG); SQUAMOUS EPITHELIAL CELL URINE 2 /hpf (0-5); URINE COLOR YELLOW (YELLW/STRAW)
--- NOTE | 2016-02-16 23:34 | MB ---
cc: SALUD SHER MD DATE OF CONSULTATION 02/16/16 REASON FOR CONSULTATION Possible seizures HISTORY OF PRESENT ILLNESS The data is obtained from the medical records. A 55-year-old male was brought by EMS for altered mental status. He has history of chronic opiate medication including methadone and morphine for pain management. He has open wounds from his right upper and bilateral lower extremity extremities, history of hepatitis C. The hospital course was complicated by perforated ascending colon with extended right hemicolectomy, primary ileocolic anastomosis, septic shock and acute hypoxia with acute respiratory failure. Hemoglobin dropped to 4.9. On 12/27 tracheostomy was placed. On 01/06 exploratory laparotomy with a bleeding gastric ulcer. On 02/12 facial twitching was noted on the right side of the face. The patient was not mouthing any words. A CT scan of the head was obtained without contrast that revealed no acute intracranial abnormality. An MRI of the brain with and without contrast was intracranially negative other than some evolving white matter paraventricular microvascular ischemic demyelinization PHYSICAL EXAMINATION GENERAL: The patient is lying in bed awake, alert, mouthing some words, tracheostomy in place. HEENT: Atraumatic, normocephalic. Tracheostomy in place. Intact hearing. Intact vision. RESPIRATORY: Normal respiratory rate, breath sounds equal. No wheezes. CARDIOVASCULAR: Regular sinus tachycardia MUSCULOSKELETAL: Bilateral pitting edema of the feet and hands. ___dressing bilateral upper extremities multiple open wounds lower extremities with gauze dressing. NEUROLOGIC: Awake, alert. Unable to assess because of inability to speak or mouth words and interact. Also unable to access for motor function and sensory function because of most both the upper limbs are dressed with gauze that makes motor sensory cerebellar and reflex assessments unacceptable. IMAGING STUDIES - Head CT scan with no acute intracranial abnormality. - Brain MRI with and without contrast was negative examination with some minimal deep white matter and paraventricular probable microvascular ischemic demyelinization. - EEG was abnormal because of bilateral slowing suggestive of bihemispheric abnormality. Mouth and face twitching is noted on one occasion despite the significant amount, some possible sharp discharge shortly or in between the twitching motor activity. The discharge could be of epileptiform significance. There was no distinct ictal pattern. but the study is limited because of excessive amount of artifact. Clinical correlation is recommended. DIAGNOSTIC IMPRESSION 1. Facial twitches that was suspicious for seizure activity. 2. Abnormal? EEG. No clear evidence of ictal activity because of muscle artifact 3. MRI did not show any acute intracranial abnormality. PLAN 1. Neuro checks q. one hourly. 2. Repeat electroencephalogram. 3. I talked to the family who are at the bedside at length about the nature of the symptoms and the investigations that need to be pursued. Thank you for the opportunity to participate in the care of your patient. MD IRWIN Hartley/ /8:53 PM /11:19 PM SANDRA
[2016-02-17] VITALS (19 sets, daily range): BP systolic 98–133; BP diastolic 55–82; PULSE 92–116; RESP 16–25; TEMP 98.2–99; O2SAT 97–100
[2016-02-17] MEDS: oxyCODONE HCL ORAL CONC 20 MG/ML SYRINGE PO SCH ×7 (03:07→19:51)
[2016-02-17] MEDS: FUROSEMIDE 20 MG/2 ML VIAL IV PUSH SCH ×6 (03:08→19:51)
[2016-02-17] MEDS: NEOMYCIN/POLYMYXIN/BACITRACIN OINT 15 GM TUBE TOPICAL SCH ×3 (03:08→21:00)
[2016-02-17] MEDS: cefTAZidime INJ 2,000 MG in SODIUM CHLORIDE 0.9% INJ 100 ML IV SCH ×4 (03:08→19:50)
[2016-02-17] MEDS: CHLORHEXIDINE 0.12% (ORAL KIT) 15 ML CUP MT SCH ×3 (03:08→22:00)
[2016-02-17] MEDS: FERROUS SULFATE 300 MG /5ML UDC TUBE SCH ×3 (03:09→19:51)
[2016-02-17] MEDS: METOPROLOL TARTRATE 25 MG TAB TUBE SCH ×5 (03:10→23:38)
[2016-02-17] MEDS: FREE WATER G-TUBE SCH ×3 (03:10→16:10)
[2016-02-17] MEDS: CHLORHEXIDINE GLUCONATE 2 % 1 PACK (2 CLOTHS) TOP SCH (04:00)
[2016-02-17] MEDS: PANTOPRAZOLE SODIUM 40 MG VIAL IV PUSH SCH ×2 (06:00→18:00)
[2016-02-17] MEDS: MULTIVITAMINS LIQUID 5 ML UDC TUBE SCH (08:25)
[2016-02-17] MEDS: POVIDONE IODINE 10% OINT 30 GM TUBE TOPICAL SCH (08:26)
[2016-02-17] MEDS: SILVER SULFADIAZINE 1% CR 400 GM JAR TOPICAL SCH (08:26)
[2016-02-17] MEDS: TAMSULOSIN HCL 0.4 MG CAP PO SCH (08:27)
[2016-02-17] MEDS: fentaNYL 100 MCG/HR PATCH TD SCH (16:35)
[2016-02-17] MEDS: fentaNYL 25 MCG/HR PATCH TD SCH (16:35)
[2016-02-17] MEDS: REMOVE OLD PATCH TD SCH ×2 (17:00)
--- NOTE | 2016-02-17 18:15 | HHI.CCPN ---
Subjective Remarks/Hospital Course 55-year-old male brought by EMS with altered mental status. He has history of chronic opiate medications including methadone and morphine that he takes for pain management and hence they gave him Narcan IV which brought the GCS up to 13. The blood glucose was 74. He has open wounds from his right upper and bilateral lower extremities. He has history of hepatitis C. Last week he was pealing and eating shrimps. Bedside blood sugar was 76 in the ER. He was tachycardic in 1 teens and was intubated in the ED for airway protection. Admitted to ICU with sepsis due to Staph Aureus hand infection and E. Coli bacteriemia. Hospital course complicated by perforated ascending colon with extended right hemicolectomy, primary ileocolic anastamosis, open abdomen, septic shock, acute hypoxic and hypercarbic respiratory failure 12/19. Taken back to the OR 12/20 afternoon for washout and completion colectomy. 12/25 Hemoglobin dropped to 4.1. Noted to have bloody drainage from G-tube and dorsal ileostomy with black stool output due to 2 gastric ulcers bleeding, stomach a significant part had decreased discoloration indicating probable ischemia. s/p epi injection and cauterization. 12/27Tracheostomy placed. 01/06: Underwent exploratory laparotomy with findings of bleeding gastric ulcer which was oversewn by Dr. Verdin abdomen left open with wound VAC in place. Now closed. On trach collar occasionally alternation intermittently with a CPAP. 02/10 Tmax 100.0. The patient has been maintain on CPAP 15 over 5/24 hours without difficulty. O2 saturations greater than 92%. Plan for trach collar trials today. 02/11 Tmax 98.4. The patient was unable to begin trach collar trials yesterday. The patient became tachypnea, RR 50's on CPAP at 4:30 yesterday requiring mechanical ventilation being placed on a rate.Patient has been maintained on mechanical ventilation overnight without any respiratory distress. O2 saturation remains 9798%. No episodes of nausea last night the patient tolerated tube feeds at 50/cc, will advance to goal today. 02/12 Afebrile. This a.m., upon examination, the patient spontaneously had eyes open but was not responding to commands as previously. Noted facial twitching eye twitching specifically the right side of face. The patient was not mouthing any words. Concern for subclinical seizure activity, or elevated ammonia levels. Ammonia level drawn, CT scan obtained EEG pending. Patient also did not tolerate tube feeds overnight. 02/13. Patient has tolerated tube feeds for the last 24 hours, noted albumin level decreased slightly from 1.1-1.0. Nutrition reconsulted for possible supplementation aids. Patient underwent EEG yesterday,, inconclusive could be of epileptiform significant, study was limited due to excessive artifact. CT brain revealed possible left mastoiditis, ammonia level not elevated .Upon examination, patient continues to have facial twitching, intermittently. 02/14 Afebrile. The patient continues to tolerate tube feeds currently at 40 cc /hour, no nausea last evening. Continue noted facial twitching by staff, the patient will go undergo MRI studies today. The patient was able to tolerate CPAP trials for 12 hours yesterday, and class placed back on the vent at 6 PM. 02/15: afebrile. neuro symptoms have resolved. now talking and interactive. smiling. 02/16: afebrile. mental status back to baseline. tolerating cpap 18/5/40% today. interactive. I had a long conversation with the Sarah family today about the fact that, while we continue to make small progresses in his acute illnesses, we have made huge steps backwards in overall functioning. He is much more malnurished and deconditioned than he was on admission, and he is now starting to get opportunistic type infections. All of these point to an overall decline , and I am concerned that he may not survive to hospital discharge, but succumb to repeat medical complications from his now chronic medical diseases. I expressed that I would continue to remain aggressive as long as he wanted me to , but the family needed to start to think about very realistic goals of care, and if we continued to decline in overall functional status and deconditioning, we may consider if we have an acute decline, transitioning to a more comfort type goals. They expressed understanding of this. Objective Vital Signs Date Time Temp Pulse Resp B/P Pulse Ox O2 Delivery O2 Flow Rate FiO2 02/17/16 16:00 98.3 104 22 120/66 100 02/17/16 16:00 50 02/17/16 07:00 Mechanical Ventilator Intake and Output 02/16/16 02/16/16 02/17/16 08:00 16:00 00:00 Intake Total 803 ml 728 ml 790 ml Output Total 700 ml 700 ml 850 ml Balance 103 ml 28 ml -60 ml Result Diagram: 02/16/16 0356 02/16/16 0356 Imaging Last Impressions Chest X-Ray 02/11/16 0600 Signed Impressions: Service Date/Time: Thursday, February 11, 2016 05:41 - CONCLUSION: Rotated study demonstrating no significant interval change. Owen Arzola MD Upper Extremity Ultrasound 01/30/16 0000 Signed Impressions: Service Date/Time: Saturday, January 30, 2016 11:18 - CONCLUSION: Limited exam without thrombus identified. Raudel Mckinney MD FACR Thoracentesis 01/28/16 0000 Signed Impressions: Service Date/Time: Thursday, January 28, 2016 12:54 - CONCLUSION: Uncomplicated CT-guided thoracentesis. Ramone Hall MD Abdomen/Pelvis CT 01/23/16 0800 Signed Impressions: Service Date/Time: Saturday, January 23, 2016 09:05 - CONCLUSION: Relative to the prior study the marked distention of the stomach is reduced. There is a persistent 5 cm left upper quadrant sub-diaphragmatic fluid collection and drain in the left upper quadrant. Patient is post splenectomy. Jejunostomy is in place and ostomy is noted in the right lower abdomen. No free fluid or free air is appreciated and there is no evidence of obstruction. Bilateral pleural effusions persists small but slightly larger on the right with left lower lobe consolidation. Jared Medina MD ADDENDUM: I have reviewed the images with respect to her request made for left subdiaphragmatic drainage of a fluid collection. No fluid collection is observed within the left upper quadrant. There is residual splenic tissue that measures 5 cm in diameter with Hounsfield units 62. The stomach fundus extends up into the subdiaphragmatic location. No subdiaphragmatic fluid collection is observed. Surgical drains are noted. Osmar Chavez Jr., MD Chest CT 01/05/16 0000 Signed Impressions: Service Date/Time: Tuesday, January 05, 2016 23:15 - CONCLUSION: 1. Persistent left lower lobar consolidation. Improved consolidative infiltrates in the right lower lung. 2. Interval increase size bilateral pleural effusions , left greater than right. Osmar Alegria MD Celiac/Hepatic Arteriogram 12/27/15 0000 Signed Impressions: Service Date/Time: December 13:41 - CONCLUSION: 1. No active GI bleed identified. Robert Mckinney MD Abdomen X-Ray 12/18/15 0000 Signed Impressions: Service Date/Time: Friday, December 18, 2015 16:05 - CONCLUSION: Feeding tube tip is at the gastric antrum. Arnaldo Elias MD Head CT 12/02/15 1013 Signed Impressions: Service Date/Time: Wednesday, December 02, 2015 11:00 - CONCLUSION: 1. No intracranial abnormality is seen. 2. Air-fluid level in the right maxillary sinus. Arnaldo Reyes MD Last 24 hours Impressions Chest X-Ray 02/05/16 0600 Signed Impressions: Service Date/Time: Friday, February 05, 2016 04:11 - CONCLUSION: Worsening/developing effusions and basilar consolidation, currently left worse than right. Arnaldo Elias MD Objective Remarks GENERAL: Middle-aged chronically critically ill, lying in bed , awake, alert, interactive, mouthing words. HEENT: NCAT. mucous membranes moist. NECK: [address], no active bleeding, no evidence of infection. RESPIRATORY: Normal respiratory rate. Breath sounds present bilaterally, clear without wheezing or rhonchi. CARDIOVASCULAR: Regular, tachycardic. Sinus tach on monitor. No murmurs rubs or gallops. GASTROINTESTINAL: J tube in place with tube feeds running @ 40cc/hr.Ostomy with brown colored stool. MUSCULOSKELETAL: Pitting edema 2+ bilateral feet and hands. Gauze dressing bilateral upper extremity Multiple open wounds in the lower extremity with gauze dressing. NEURO: Awake. Alert, interactive. RASS 0, CAM -. mouthing words. 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 Miller). - Trach exchanged 8.0 Shiley with cuff on 01/19 - DuoNeb q6h and as needed - Last CT guided thoracentesis 01/27 - CXR 02/11 unchanged - Continue fluid mobilization with lasix - continue CPAP trials and atc as tolerated. - will try to stand him at some point this week, it will take a lot of ancillary support to do this. Leukocytosis Bandemia - re-cultured 02/07 - Bands 6->1->11->2->1 today - ID following, Dr. Becerra - WBC 19 ->18 today Sputum Culture 02/12 Stenotrophomonas Maltophilia Sputum Culture 02/07 Stenotrophomonas Maltophilia Blood Culture 02/07 NGTD Urine Culture 02/02 neg NIGEL - on home CPAP - Tracheostomy - not an issue while tracheostomy in place Hyperkalemia Hypokalemia - Hyperkalemia - improving with Lasix - Resolved - Kayexalate discontinued Hypernatremia - continue Free water flushes 200 q 8 hr - Urine eos negative. - Avoiding nephrotoxins. - Monitor BMP - Continue to replete electrolytes per ICU protocol Perforated right colon with ischemic colitis - s/p ex-lap, extended right hemicolectomy with primary ileocolic anastamosis - s/p Ex lap 01/05 for bleeding gastric ulcer - management per GS - no acute issues Acute protein calorie malnutrition - severe -Nutrition reconsulted, for recommendations regarding supplementation - continue Beneprotein 1 packet QID - Prealbumin 14 on 01/26 - Jevity goal rate to 65/hr based on nutrition most recent recommendations @ goal - repeat pre-albumin level 6 Chronic hepatitis C - s/p interferon/ribavirin years ago - Liver biopsy 04/14/08 - monitor for liver failure -Ammonia level 31 Gastric ulcer disease - EGD 12/26/15 showed 2 large gastric ulcers with active bleeding - status post epinephrine infusion and cauterization - To OR 01/05 with GI bleeding and hemorrhagic shock. - gastrotomy with ligation of gastric ulcer, lysis of adhesions, wound VAC placement - Continue Protonix 40 g IV q12h Acute Anemia - secondary to acute blood loss - Hgb stable 7.5, will transfuse for hemoglobin less than 7 - last transfused 1 unit PRBC 02/02 - Melena resolved. - No obvious active bleeding. - Ferrous Sulfate 300mg bid Thrombocytopenia - resolved - Hep PLT ab negative on 12/03 - due to chronic liver disease - no active bleeding Hyperglycemia of Critical Illness - off Insulin drip - Levemir BID on hold, not clinically indicated at this time - Low-dose insulin sliding scale DC Critical illness polyneuropathy -Continue PT daily, out of bed to chair, functional maintenance of extremities 4 Open wounds,B/L upper extremities multiple stages -Reconsult wound care 02/11 B/L upper extremities -Digits on hand reddened and edematous Facial spasms/twitching -02/12 CT brain normal, possible left mastoiditis, ID aware -Calcium level 9.1, BMP normal -ENT consult -02/14 MRI brain: no acute disease. - EEG 02/12-mouth and facial twitching noted. The discharge could be of epileptiform significant, excessive artifact study limited. Urinary Retention: -- was not getting Flomax because it cannot be crushed. we will d/c this. -- start terazosin 5mg qhs. -- plan to try matos removal in 2 days (anticipated 02/18) GI Prophylaxis: -- Protonix IV BID DVT Prophylaxis: - SCDs - No chemical DVT Prophylaxis, OOB to chair and daily functional maintenance of extremities x 4 ACCESS: --PIV x 2. Discuss [employer] at bedside. Problem Qualifiers (1) Respiratory failure: Qualified Code: J96.00 - Acute respiratory failure, unspecified whether with hypoxia or hypercapnia (2) Altered mental status: Qualified Code: R41.0 - Delirium (3) Sepsis: Qualified Code: A41.9 - Sepsis, due to unspecified organism Jeyson Fernández MD Feb 17, 2016 18:15
[2016-02-17] MEDS: SODIUM CHLORIDE 0.9% FLUSH 5 ML FLUSH IVF PRN (19:51)
[2016-02-17] MEDS: HYDROmorphone HCL PF 2 MG/ML VIAL IV PUSH PRN (21:58)
[2016-02-17] MEDS: TERAZOSIN HCL 5 MG CAP PO SCH (21:58)
[2016-02-18] VITALS (18 sets, daily range): BP systolic 114–131; BP diastolic 64–80; PULSE 87–107; RESP 15–25; TEMP 98.2–98.7; O2SAT 96–100
[2016-02-18] MEDS: oxyCODONE HCL ORAL CONC 20 MG/ML SYRINGE PO SCH ×6 (00:06→20:11)
[2016-02-18] MEDS: FREE WATER G-TUBE SCH ×3 (00:06→17:22)
[2016-02-18] MEDS: cefTAZidime INJ 2,000 MG in SODIUM CHLORIDE 0.9% INJ 100 ML IV SCH ×3 (02:47→19:31)
[2016-02-18] MEDS: CHLORHEXIDINE GLUCONATE 2 % 1 PACK (2 CLOTHS) TOP SCH (02:47)
[2016-02-18] MEDS: FUROSEMIDE 20 MG/2 ML VIAL IV PUSH SCH ×4 (02:47→20:12)
[2016-02-18] MEDS: METOPROLOL TARTRATE 25 MG TAB TUBE SCH ×4 (04:58→22:56)
[2016-02-18] MEDS: PANTOPRAZOLE SODIUM 40 MG VIAL IV PUSH SCH ×2 (04:58→17:22)
[2016-02-18] MEDS: FERROUS SULFATE 300 MG /5ML UDC TUBE SCH ×2 (08:24→20:11)
[2016-02-18] MEDS: CHLORHEXIDINE 0.12% (ORAL KIT) 15 ML CUP MT SCH ×2 (08:25→19:31)
[2016-02-18] MEDS: POVIDONE IODINE 10% OINT 30 GM TUBE TOPICAL SCH (08:26)
[2016-02-18] MEDS: NEOMYCIN/POLYMYXIN/BACITRACIN OINT 15 GM TUBE TOPICAL SCH ×2 (08:27→20:12)
[2016-02-18] MEDS: SILVER SULFADIAZINE 1% CR 400 GM JAR TOPICAL SCH (08:27)
[2016-02-18] MEDS: MULTIVITAMINS LIQUID 5 ML UDC TUBE SCH (08:27)
--- NOTE | 2016-02-18 09:13 | HHI.CCPN ---
Subjective Remarks/Hospital Course 55-year-old male brought by EMS with altered mental status. He has history of chronic opiate medications including methadone and morphine that he takes for pain management and hence they gave him Narcan IV which brought the GCS up to 13. The blood glucose was 74. He has open wounds from his right upper and bilateral lower extremities. He has history of hepatitis C. Last week he was pealing and eating shrimps. Bedside blood sugar was 76 in the ER. He was tachycardic in 1 teens and was intubated in the ED for airway protection. Admitted to ICU with sepsis due to Staph Aureus hand infection and E. Coli bacteriemia. Hospital course complicated by perforated ascending colon with extended right hemicolectomy, primary ileocolic anastamosis, open abdomen, septic shock, acute hypoxic and hypercarbic respiratory failure 12/19. Taken back to the OR 12/20 afternoon for washout and completion colectomy. 12/25 Hemoglobin dropped to 4.1. Noted to have bloody drainage from G-tube and dorsal ileostomy with black stool output due to 2 gastric ulcers bleeding, stomach a significant part had decreased discoloration indicating probable ischemia. s/p epi injection and cauterization. 12/27Tracheostomy placed. 01/06: Underwent exploratory laparotomy with findings of bleeding gastric ulcer which was oversewn by Dr. Verdin abdomen left open with wound VAC in place. Now closed. On trach collar occasionally alternation intermittently with a CPAP. 02/10 Tmax 100.0. The patient has been maintain on CPAP 15 over 5/24 hours without difficulty. O2 saturations greater than 92%. Plan for trach collar trials today. 02/11 Tmax 98.4. The patient was unable to begin trach collar trials yesterday. The patient became tachypnea, RR 50's on CPAP at 4:30 yesterday requiring mechanical ventilation being placed on a rate.Patient has been maintained on mechanical ventilation overnight without any respiratory distress. O2 saturation remains 9798%. No episodes of nausea last night the patient tolerated tube feeds at 50/cc, will advance to goal today. 02/12 Afebrile. This a.m., upon examination, the patient spontaneously had eyes open but was not responding to commands as previously. Noted facial twitching eye twitching specifically the right side of face. The patient was not mouthing any words. Concern for subclinical seizure activity, or elevated ammonia levels. Ammonia level drawn, CT scan obtained EEG pending. Patient also did not tolerate tube feeds overnight. 02/13. Patient has tolerated tube feeds for the last 24 hours, noted albumin level decreased slightly from 1.1-1.0. Nutrition reconsulted for possible supplementation aids. Patient underwent EEG yesterday,, inconclusive could be of epileptiform significant, study was limited due to excessive artifact. CT brain revealed possible left mastoiditis, ammonia level not elevated .Upon examination, patient continues to have facial twitching, intermittently. 02/14 Afebrile. The patient continues to tolerate tube feeds currently at 40 cc /hour, no nausea last evening. Continue noted facial twitching by staff, the patient will go undergo MRI studies today. The patient was able to tolerate CPAP trials for 12 hours yesterday, and class placed back on the vent at 6 PM. 02/15: afebrile. neuro symptoms have resolved. now talking and interactive. smiling. 02/16: afebrile. mental status back to baseline. tolerating cpap 18/5/40% today. interactive. I had a long conversation with the Sarah family today about the fact that, while we continue to make small progresses in his acute illnesses, we have made huge steps backwards in overall functioning. He is much more malnurished and deconditioned than he was on admission, and he is now starting to get opportunistic type infections. All of these point to an overall decline , and I am concerned that he may not survive to hospital discharge, but succumb to repeat medical complications from his now chronic medical diseases. I expressed that I would continue to remain aggressive as long as he wanted me to , but the family needed to start to think about very realistic goals of care, and if we continued to decline in overall functional status and deconditioning, we may consider if we have an acute decline, transitioning to a more comfort type goals. They expressed understanding of this. 02/17: No acute events overnight. Conversation with family per Dr. Chavez yesterday. Patient was placed on Hytrin yesterday. Patient is alert and responsive, mouthing words. Patient continues to tolerate CPAP. Objective Vital Signs Date Time Temp Pulse Resp B/P Pulse Ox O2 Delivery O2 Flow Rate FiO2 02/18/16 08:00 98 02/18/16 08:00 40 02/18/16 07:23 99 02/18/16 07:00 Mechanical Ventilator 02/18/16 04:00 98.2 18 131/64 Intake and Output 02/17/16 02/17/16 02/18/16 08:00 16:00 00:00 Intake Total 499 ml 904 ml 404 ml Output Total 700 ml 875 ml 550 ml Balance -201 ml 29 ml -146 ml Result Diagram: 02/16/16 0356 02/16/16 0356 Imaging Last Impressions Chest X-Ray 02/11/16 0600 Signed Impressions: Service Date/Time: Thursday, February 11, 2016 05:41 - CONCLUSION: Rotated study demonstrating no significant interval change. Owen Arzola MD Upper Extremity Ultrasound 01/30/16 0000 Signed Impressions: Service Date/Time: Saturday, January 30, 2016 11:18 - CONCLUSION: Limited exam without thrombus identified. Raudel Mckinney MD FACR Thoracentesis 01/28/16 0000 Signed Impressions: Service Date/Time: Thursday, January 28, 2016 12:54 - CONCLUSION: Uncomplicated CT-guided thoracentesis. Ramone Hall MD Abdomen/Pelvis CT 01/23/16 0800 Signed Impressions: Service Date/Time: Saturday, January 23, 2016 09:05 - CONCLUSION: Relative to the prior study the marked distention of the stomach is reduced. There is a persistent 5 cm left upper quadrant sub-diaphragmatic fluid collection and drain in the left upper quadrant. Patient is post splenectomy. Jejunostomy is in place and ostomy is noted in the right lower abdomen. No free fluid or free air is appreciated and there is no evidence of obstruction. Bilateral pleural effusions persists small but slightly larger on the right with left lower lobe consolidation. Jared Medina MD ADDENDUM: I have reviewed the images with respect to her request made for left subdiaphragmatic drainage of a fluid collection. No fluid collection is observed within the left upper quadrant. There is residual splenic tissue that measures 5 cm in diameter with Hounsfield units 62. The stomach fundus extends up into the subdiaphragmatic location. No subdiaphragmatic fluid collection is observed. Surgical drains are noted. Osmar Chavez Jr., MD Chest CT 01/05/16 0000 Signed Impressions: Service Date/Time: Tuesday, January 05, 2016 23:15 - CONCLUSION: 1. Persistent left lower lobar consolidation. Improved consolidative infiltrates in the right lower lung. 2. Interval increase size bilateral pleural effusions , left greater than right. Osmar Alegria MD Celiac/Hepatic Arteriogram 12/27/15 0000 Signed Impressions: Service Date/Time: December 13:41 - CONCLUSION: 1. No active GI bleed identified. Robert Mckinney MD Abdomen X-Ray 12/18/15 0000 Signed Impressions: Service Date/Time: Friday, December 18, 2015 16:05 - CONCLUSION: Feeding tube tip is at the gastric antrum. Arnaldo Elias MD Head CT 12/02/15 1013 Signed Impressions: Service Date/Time: Wednesday, December 02, 2015 11:00 - CONCLUSION: 1. No intracranial abnormality is seen. 2. Air-fluid level in the right maxillary sinus. Arnaldo Reyes MD Last 24 hours Impressions Chest X-Ray 02/05/16 0600 Signed Impressions: Service Date/Time: Friday, February 05, 2016 04:11 - CONCLUSION: Worsening/developing effusions and basilar consolidation, currently left worse than right. Arnaldo Elias MD Objective Remarks GENERAL: Middle-aged chronically critically ill, lying in bed , awake, alert, interactive, mouthing words. HEENT: NCAT. mucous membranes moist. NECK: [address], no active bleeding, no evidence of infection. RESPIRATORY: Normal respiratory rate. Breath sounds present bilaterally, clear without wheezing or rhonchi. CARDIOVASCULAR: Regular, tachycardic. Sinus tach on monitor. No murmurs rubs or gallops. GASTROINTESTINAL: J tube in place with tube feeds running @ 40cc/hr.Ostomy with brown colored stool. MUSCULOSKELETAL: Pitting edema 2+ bilateral feet and hands. Gauze dressing bilateral upper extremity Multiple open wounds in the lower extremity with gauze dressing. NEURO: Awake. Alert, interactive. RASS 0, CAM -. mouthing words. 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 Miller). - Trach exchanged 8.0 Shiley with cuff on 01/19 - DuoNeb q6h and as needed - Last CT guided thoracentesis 01/27 - CXR 02/11 unchanged - Continue fluid mobilization with lasix - continue CPAP trials and trach collar trials as tolerated. - will attempt to stand him at some point this week Leukocytosis Bandemia - re-cultured 02/07 - Bands 6->1->11->2->1 today - ID following, Dr. Becerra - WBC 19 ->18 today Sputum Culture 02/12 Stenotrophomonas Maltophilia Sputum Culture 02/07 Stenotrophomonas Maltophilia Blood Culture 02/07 NGTD Urine Culture 02/02 neg NIGEL - on home CPAP - Tracheostomy - not an issue while tracheostomy in place Hyperkalemia Hypokalemia - Hyperkalemia - improving with Lasix - Resolved - Kayexalate discontinued Hypernatremia - continue Free water flushes 200 q 8 hr - Urine eos negative. - Avoiding nephrotoxins. - Monitor BMP - Continue to replete electrolytes per ICU protocol Perforated right colon with ischemic colitis - s/p ex-lap, extended right hemicolectomy with primary ileocolic anastamosis - s/p Ex lap 01/05 for bleeding gastric ulcer - management per GS - no acute issues Acute protein calorie malnutrition - severe -Nutrition reconsulted, for recommendations regarding supplementation - continue Beneprotein 1 packet QID - Prealbumin 14 on 01/26 - Jevity goal rate to 65/hr based on nutrition most recent recommendations @ goal Chronic hepatitis C - s/p interferon/ribavirin years ago - Liver biopsy 04/14/08 - monitor for liver failure -02/14 Ammonia level 31 Gastric ulcer disease - EGD 12/26/15 showed 2 large gastric ulcers with active bleeding - status post epinephrine infusion and cauterization - To OR 01/05 with GI bleeding and hemorrhagic shock. -S/P gastrotomy with ligation of gastric ulcer, lysis of adhesions - Continue Protonix 40 g IV q12h Acute Anemia - secondary to acute blood loss - Hgb stable 7.5, will transfuse for hemoglobin less than 7 - last transfused 1 unit PRBC 02/02 - No obvious active bleeding. - Ferrous Sulfate 300mg bid Thrombocytopenia - resolved - Hep PLT ab negative on 12/03 - due to chronic liver disease - no active bleeding Hyperglycemia of Critical Illness - off Insulin drip - Levemir BID on hold, not clinically indicated at this time - Low-dose insulin sliding scale DC Critical illness polyneuropathy -Continue PT daily, out of bed to chair, functional maintenance of extremities 4 Open wounds,B/L upper extremities multiple stages -Reconsult wound care 02/11 B/L upper extremities -Digits on hand reddened and edematous Facial spasms/twitching -02/12 CT brain normal, possible left mastoiditis, ID aware -Calcium level 9.1, BMP normal -ENT consult -02/14 MRI brain: no acute disease. - EEG 02/12-mouth and facial twitching noted. The discharge could be of epileptiform significant, excessive artifact study limited. -02/15Resolution of facial twitching Urinary Retention: -- was not getting Flomax because it cannot be crushed. we will d/c this. -- 02/16 terazosin 5mg qhs. -- plan to try matos removal in 2 days (anticipated 02/18) GI Prophylaxis: -- Protonix IV BID DVT Prophylaxis: - SCDs - No chemical DVT Prophylaxis, OOB to chair and daily functional maintenance of extremities x 4 ACCESS: --PIV x 2. Discuss COSTUME DESIGNER at bedside. Level 2 Physician Fe Poole Problem Qualifiers (1) Respiratory failure: Qualified Code: J96.00 - Acute respiratory failure, unspecified whether with hypoxia or hypercapnia (2) Altered mental status: Qualified Code: R41.0 - Delirium (3) Sepsis: Qualified Code: A41.9 - Sepsis, due to unspecified organism Fe Poole MD Feb 18, 2016 09:13 Fe Poole MD Feb 18, 2016 09:13
[2016-02-18] MEDS: HYDROmorphone HCL PF 4 MG/ML VIAL IV PUSH PRN (13:36)
--- NOTE | 2016-02-18 18:52 | MG ---
cc: SHELBIE BROTHERS Lab No: Date: Age: Sex: M Race: ELECTROENCEPHALOGRAM NUMBER [id number] INTRODUCTION Hyperventilation was not performed. Change in mental status. Leg numbness. MEDICATIONS 1. Fentanyl. 2. Oxycodone. DESCRIPTION A lot of muscle artifact is seen which makes interpretation difficult. Diffuse 7 Hz slowing is noted. Some delta slowing is noted also bilaterally. There is a lot of muscle artifact but there may be a phase reversing sharp wave at F3 but also seen at F4, so bifrontally. And a sharp slow complex bifrontally also at epoch 35. Photic stimulation is performed without significant posterior driving. IMPRESSION A poor technical quality EEG. There may be some bifrontal sharps there and sharp slow complex noted. Clinical correlation is needed. Diffuse theta slowing and delta slowing was seen consistent with a moderate diffuse encephalopathy but there may be a slight increased tendency for seizure. MD EDDIE Fortune/LEANDRA /6:36 PM /6:41 PM
[2016-02-18] MEDS: SODIUM CHLORIDE 0.9% FLUSH 5 ML FLUSH IVF PRN (19:33)
[2016-02-18] MEDS: TERAZOSIN HCL 5 MG CAP PO SCH (20:11)
[2016-02-19] VITALS (17 sets, daily range): BP systolic 97–163; BP diastolic 57–83; PULSE 86–128; RESP 17–37; TEMP 98.2–98.6; O2SAT 92–100
[2016-02-19] MEDS: oxyCODONE HCL ORAL CONC 20 MG/ML SYRINGE PO SCH ×6 (00:48→20:32)
[2016-02-19] MEDS: FREE WATER G-TUBE SCH ×3 (00:48→17:00)
[2016-02-19] MEDS: FUROSEMIDE 20 MG/2 ML VIAL IV PUSH SCH ×4 (03:20→20:32)
[2016-02-19] MEDS: cefTAZidime INJ 2,000 MG in SODIUM CHLORIDE 0.9% INJ 100 ML IV SCH ×3 (03:20→20:33)
[2016-02-19] MEDS: HYDROmorphone HCL PF 2 MG/ML VIAL IV PUSH PRN ×2 (03:21→14:13)
[2016-02-19] MEDS: CHLORHEXIDINE GLUCONATE 2 % 1 PACK (2 CLOTHS) TOP SCH (04:00)
[2016-02-19 05:06] LABS: HEMATOCRIT 25.3 % (39.0-51.0); MEAN CELL VOLUME 93.1 FL (80.0-100.0); MEAN CORPUSCULAR HEMOGLOBIN 29.5 PG (27.0-34.0); MEAN CORPUSCULAR HGB CONC 31.7 % (32.0-36.0); PLATELET COUNT 630 TH/MM3 (150-450); RED BLOOD COUNT 2.71 MIL/MM3 (4.50-5.90); RED CELL DISTRIBUTION WIDTH 17.9 % (11.6-17.2); REVIEW FLAG FINAL; WHITE BLOOD COUNT 18.2 TH/MM3 (4.0-11.0)
[2016-02-19] MEDS: METOPROLOL TARTRATE 25 MG TAB TUBE SCH ×4 (05:09→23:38)
[2016-02-19] MEDS: PANTOPRAZOLE SODIUM 40 MG VIAL IV PUSH SCH ×2 (05:10→17:41)
[2016-02-19 05:46] LABS: BICARBONATE 27.5 MEQ/L (21.0-32.0); MAGNESIUM 2.1 MG/DL (1.5-2.5); POTASSIUM 3.7 MEQ/L (3.5-5.1)
[2016-02-19] MEDS: NEOMYCIN/POLYMYXIN/BACITRACIN OINT 15 GM TUBE TOPICAL SCH ×2 (09:00→21:00)
[2016-02-19] MEDS: SILVER SULFADIAZINE 1% CR 400 GM JAR TOPICAL SCH ×2 (09:00→09:38)
[2016-02-19] MEDS: MULTIVITAMINS LIQUID 5 ML UDC TUBE SCH (09:34)
[2016-02-19] MEDS: CHLORHEXIDINE 0.12% (ORAL KIT) 15 ML CUP MT SCH ×2 (09:36→20:32)
[2016-02-19] MEDS: FERROUS SULFATE 300 MG /5ML UDC TUBE SCH ×2 (09:37→20:31)
[2016-02-19] MEDS: POVIDONE IODINE 10% OINT 30 GM TUBE TOPICAL SCH (09:38)
--- NOTE | 2016-02-19 14:07 | HHI.PR ---
Subjective Subjective Notes Up to chair Back so old self No complaints; no pain Objective Vitals/I&O Vital Signs Date Time Temp Pulse Resp B/P Pulse Ox O2 Delivery O2 Flow Rate FiO2 02/19/16 10:30 45 02/19/16 10:00 107 02/19/16 09:47 95 02/19/16 08:00 98.2 18 111/67 02/19/16 07:00 Mechanical Ventilator Labs Laboratory Tests Test 02/19/16 03:44 White Blood Count 18.2 Red Blood Count 2.71 Hemoglobin 8.0 Hematocrit 25.3 Mean Corpuscular Volume 93.1 Mean Corpuscular Hemoglobin 29.5 Mean Corpuscular Hemoglobin 31.7 Concent Red Cell Distribution Width 17.9 Platelet Count 630 Mean Platelet Volume 9.0 Sodium Level 143 Potassium Level 3.7 Chloride Level 106 Carbon Dioxide Level 27.5 Anion Gap 10 Blood Urea Nitrogen 51 Creatinine 1.21 Estimat Glomerular Filtration 63 Rate Random Glucose 122 Calcium Level 9.5 Phosphorus Level 2.7 Magnesium Level 2.1 Date/Time Procedure Status Source Growth 02/16/16 20:50 Gram Stain - Final Complete Sputum Endotracheal 02/16/16 20:50 Sputum Culture - Final Complete Stenotrophomonas Maltophilia 02/16/16 20:35 Urine Culture - Final Complete Urine Catheterized Urine NO GROWTH IN 48 HOURS. 02/16/16 19:26 Aerobic Blood Culture - Preliminary Resulted Blood Peripheral NO GROWTH IN 3 DAYS 02/16/16 19:26 Anaerobic Blood Culture - Preliminary Resulted Blood Peripheral NO GROWTH IN 3 DAYS Radiology Last Impressions Chest X-Ray 12/28/15 0000 Signed Impressions: Service Date/Time: Monday, December 28, 2015 14:23 - CONCLUSION: Large left pleural effusion and left lung base consolidation. Freddy Connor MD Abdomen/Pelvis CT 12/19/15 0000 Signed Impressions: Service Date/Time: Saturday, December 19, 2015 10:57 - CONCLUSION: 1. Adjacent volume pneumoperitoneum is observed consistent with perforation of a hollow viscus. This is presumably colonic in origin due to the diffuse inflammatory process involving the colon. I do not clearly identify the source of the pneumoperitoneum however. There is mild dilatation of the small bowel likely an ileus in nature. A significant volume of ascitic fluid is noted. 2. Bibasilar atelectasis and bilateral pleural effusions. 3. Small pericardial effusion. 4. Small bilateral nonobstructing renal calculi. 5. I spoke with Dr. Sanchez concerning the findings. Osmar Chavez Jr., MD Abdomen X-Ray 12/18/15 0000 Signed Impressions: Service Date/Time: Friday, December 18, 2015 16:05 - CONCLUSION: Feeding tube tip is at the gastric antrum. Arnaldo Elias MD Chest CT 12/14/15 0000 Signed Impressions: Service Date/Time: Monday, December 14, 2015 06:12 - CONCLUSION: 1. Cardiomegaly with bilateral consolidation, likely CHF. Pneumonia cannot be excluded. 2. Small right pleural effusion. Wojciech Lockhart MD Head CT 12/02/15 1013 Signed Impressions: Service Date/Time: Wednesday, December 02, 2015 11:00 - CONCLUSION: 1. No intracranial abnormality is seen. 2. Air-fluid level in the right maxillary sinus. Arnaldo Reyes MD Cardiovascular: Regular Lungs: Clear Abdomen: Other (see below ) Extremities: Other (see below ) Narrative Exam RIGHT and LEFT arm dressing in place Abd: Midline incision--- with packing; ileostomy with stool A/P Problem List: (1) Dependent on ventilator (2) Open wound of abdomen (3) Ileostomy in place (4) Jejunostomy tube present (5) S/P total colectomy (6) Acute colitis (7) Gastrostomy tube in place Assessment and Plan 55 year old male s/p ex lap; s/p colectomy; J tube placement and would vac change -Now tolerating TF -Neuro status appears to back to baseline -Continue Primapore dressing BID and PRN to midline incision ----continue packing to superior and inferior areas of incision -Spoke with Dr. Poole -Will see every few days but please call with questions Attending Statement pt seen at bedside no issues, tolerating tf will follow peripherally Attestation The exam, history, and the medical decision-making described in the above note were completed with the assistance of the mid-level provider. I reviewed and agree with the findings presented. I attest that I had a [id number] encounter with the patient on the same day, and personally performed and documented my assessment and findings in the medical record. Problem Qualifiers (1) Open wound of abdomen: Qualified Code: S31.109D - Open wound of abdomen, subsequent encounter Lurdes Felix Feb 19, 2016 14:07 Bebo Verdin MD Mar 02, 2016 16:07
--- NOTE | 2016-02-19 16:41 | HHI.HCPN ---
Spoke to patient's daughter and via telephone to provide an update on the patient's clinical condition, review recent diagnostic results and discuss current medical treatment goals. 02/19/16: WBC 18.2, hemoglobin 8.0, hematocrit 25.3 Patient's neurological status is back to baseline. Neurology following. Family meeting tentatively scheduled for Thursday02/22/16. Family would like store hand to be present at meeting if possible. . Leah Pop Feb 19, 2016 16:40
--- NOTE | 2016-02-19 17:00 | HHI.CCPN ---
Subjective Remarks/Hospital Course 55-year-old male brought by EMS with altered mental status. He has history of chronic opiate medications including methadone and morphine that he takes for pain management and hence they gave him Narcan IV which brought the GCS up to 13. The blood glucose was 74. He has open wounds from his right upper and bilateral lower extremities. He has history of hepatitis C. Last week he was pealing and eating shrimps. Bedside blood sugar was 76 in the ER. He was tachycardic in 1 teens and was intubated in the ED for airway protection. Admitted to ICU with sepsis due to Staph Aureus hand infection and E. Coli bacteriemia. Hospital course complicated by perforated ascending colon with extended right hemicolectomy, primary ileocolic anastamosis, open abdomen, septic shock, acute hypoxic and hypercarbic respiratory failure 12/19. Taken back to the OR 12/20 afternoon for washout and completion colectomy. 12/25 Hemoglobin dropped to 4.1. Noted to have bloody drainage from G-tube and dorsal ileostomy with black stool output due to 2 gastric ulcers bleeding, stomach a significant part had decreased discoloration indicating probable ischemia. s/p epi injection and cauterization. 12/27Tracheostomy placed. 01/06: Underwent exploratory laparotomy with findings of bleeding gastric ulcer which was oversewn by Dr. Verdin abdomen left open with wound VAC in place. Now closed. On trach collar occasionally alternation intermittently with a CPAP. 02/10 Tmax 100.0. The patient has been maintain on CPAP 15 over 5/24 hours without difficulty. O2 saturations greater than 92%. Plan for trach collar trials today. 02/11 Tmax 98.4. The patient was unable to begin trach collar trials yesterday. The patient became tachypnea, RR 50's on CPAP at 4:30 yesterday requiring mechanical ventilation being placed on a rate.Patient has been maintained on mechanical ventilation overnight without any respiratory distress. O2 saturation remains 9798%. No episodes of nausea last night the patient tolerated tube feeds at 50/cc, will advance to goal today. 02/12 Afebrile. This a.m., upon examination, the patient spontaneously had eyes open but was not responding to commands as previously. Noted facial twitching eye twitching specifically the right side of face. The patient was not mouthing any words. Concern for subclinical seizure activity, or elevated ammonia levels. Ammonia level drawn, CT scan obtained EEG pending. Patient also did not tolerate tube feeds overnight. 02/13. Patient has tolerated tube feeds for the last 24 hours, noted albumin level decreased slightly from 1.1-1.0. Nutrition reconsulted for possible supplementation aids. Patient underwent EEG yesterday,, inconclusive could be of epileptiform significant, study was limited due to excessive artifact. CT brain revealed possible left mastoiditis, ammonia level not elevated .Upon examination, patient continues to have facial twitching, intermittently. 02/14 Afebrile. The patient continues to tolerate tube feeds currently at 40 cc /hour, no nausea last evening. Continue noted facial twitching by staff, the patient will go undergo MRI studies today. The patient was able to tolerate CPAP trials for 12 hours yesterday, and class placed back on the vent at 6 PM. 02/15: afebrile. neuro symptoms have resolved. now talking and interactive. smiling. 02/16: afebrile. mental status back to baseline. tolerating cpap 18/5/40% today. interactive. I had a long conversation with the Sarah family today about the fact that, while we continue to make small progresses in his acute illnesses, we have made huge steps backwards in overall functioning. He is much more malnurished and deconditioned than he was on admission, and he is now starting to get opportunistic type infections. All of these point to an overall decline , and I am concerned that he may not survive to hospital discharge, but succumb to repeat medical complications from his now chronic medical diseases. I expressed that I would continue to remain aggressive as long as he wanted me to , but the family needed to start to think about very realistic goals of care, and if we continued to decline in overall functional status and deconditioning, we may consider if we have an acute decline, transitioning to a more comfort type goals. They expressed understanding of this. 02/17: No acute events overnight. Conversation with family per Dr. Chavez yesterday. Patient was placed on Hytrin yesterday. Patient is alert and responsive, mouthing words. Patient continues to tolerate CPAP. 02/18: Afebrile. The patient tolerated CPAP for 5 hours today. Evaluation on right hand digits remain edematous and reddened, noted Adaptic adherence to tendons. Wound care we consulted regarding clarification of wound care instructions. Objective Vital Signs Date Time Temp Pulse Resp B/P Pulse Ox O2 Delivery O2 Flow Rate FiO2 02/19/16 10:30 45 02/19/16 10:00 107 02/19/16 09:47 95 02/19/16 08:00 98.2 18 111/67 02/19/16 07:00 Mechanical Ventilator Intake and Output 02/18/16 02/18/16 02/18/16 07:59 15:59 23:59 Intake Total 779 ml 645 ml 793 ml Output Total 570 ml 750 ml 650 ml Balance 209 ml -105 ml 143 ml Result Diagram: 02/19/16 0344 02/19/16 0344 Other Results Microbiology Date/Time Procedure Status Source Growth 02/16/16 20:35 Urine Culture - Final Complete Urine Catheterized Urine NO GROWTH IN 48 HOURS. 02/16/16 20:50 Gram Stain - Final Complete Sputum Endotracheal 02/16/16 20:50 Sputum Culture - Final Complete Stenotrophomonas Maltophilia Imaging Last Impressions Chest X-Ray 02/11/16 0600 Signed Impressions: Service Date/Time: Thursday, February 11, 2016 05:41 - CONCLUSION: Rotated study demonstrating no significant interval change. Owen Arzola MD Upper Extremity Ultrasound 01/30/16 0000 Signed Impressions: Service Date/Time: Saturday, January 30, 2016 11:18 - CONCLUSION: Limited exam without thrombus identified. Raudel Mckinney MD FACR Thoracentesis 01/28/16 0000 Signed Impressions: Service Date/Time: Thursday, January 28, 2016 12:54 - CONCLUSION: Uncomplicated CT-guided thoracentesis. Ramone Hall MD Abdomen/Pelvis CT 01/23/16 0800 Signed Impressions: Service Date/Time: Saturday, January 23, 2016 09:05 - CONCLUSION: Relative to the prior study the marked distention of the stomach is reduced. There is a persistent 5 cm left upper quadrant sub-diaphragmatic fluid collection and drain in the left upper quadrant. Patient is post splenectomy. Jejunostomy is in place and ostomy is noted in the right lower abdomen. No free fluid or free air is appreciated and there is no evidence of obstruction. Bilateral pleural effusions persists small but slightly larger on the right with left lower lobe consolidation. Jared Medina MD ADDENDUM: I have reviewed the images with respect to her request made for left subdiaphragmatic drainage of a fluid collection. No fluid collection is observed within the left upper quadrant. There is residual splenic tissue that measures 5 cm in diameter with Hounsfield units 62. The stomach fundus extends up into the subdiaphragmatic location. No subdiaphragmatic fluid collection is observed. Surgical drains are noted. Osmar Chavez Jr., MD Chest CT 01/05/16 0000 Signed Impressions: Service Date/Time: Tuesday, January 05, 2016 23:15 - CONCLUSION: 1. Persistent left lower lobar consolidation. Improved consolidative infiltrates in the right lower lung. 2. Interval increase size bilateral pleural effusions , left greater than right. Osmar Alegria MD Celiac/Hepatic Arteriogram 12/27/15 0000 Signed Impressions: Service Date/Time: December 13:41 - CONCLUSION: 1. No active GI bleed identified. Robert Mckinney MD Abdomen X-Ray 12/18/15 0000 Signed Impressions: Service Date/Time: Friday, December 18, 2015 16:05 - CONCLUSION: Feeding tube tip is at the gastric antrum. Arnaldo Elias MD Head CT 12/02/15 1013 Signed Impressions: Service Date/Time: Wednesday, December 02, 2015 11:00 - CONCLUSION: 1. No intracranial abnormality is seen. 2. Air-fluid level in the right maxillary sinus. Arnaldo Reyes MD Last 24 hours Impressions Chest X-Ray 02/05/16 0600 Signed Impressions: Service Date/Time: Friday, February 05, 2016 04:11 - CONCLUSION: Worsening/developing effusions and basilar consolidation, currently left worse than right. Arnaldo Elias MD Objective Remarks GENERAL: Middle-aged chronically critically ill, lying in bed , awake, alert, interactive, mouthing words. HEENT: NCAT. mucous membranes moist. NECK: [address], no active bleeding, no evidence of infection. RESPIRATORY: Normal respiratory rate. Breath sounds present bilaterally, clear without wheezing or rhonchi. CARDIOVASCULAR: Regular, tachycardic. Sinus tach on monitor. No murmurs rubs or gallops. GASTROINTESTINAL: J tube in place with tube feeds running @ 40cc/hr.Ostomy with brown colored stool. MUSCULOSKELETAL: Pitting edema 2+ bilateral feet and hands. Gauze dressing bilateral upper extremity Multiple open wounds in the lower extremity with gauze dressing. NEURO: Awake. Alert, interactive. RASS 0, CAM -. mouthing words. 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 Miller). - Trach exchanged 8.0 Shiley with cuff on 01/19 - DuoNeb q6h and as needed - Last CT guided thoracentesis 01/27 - CXR 02/11 unchanged - Continue fluid mobilization with lasix - continue CPAP trials and trach collar trials as tolerated -Follow-up ABG in a.m. Leukocytosis Bandemia-resolved - re-cultured 02/07 - Bands 6->1->11->2->1 (02/16) - ID following, Dr. Becerra - WBC 18->18 today Sputum Culture 02/12 Stenotrophomonas Maltophilia Sputum Culture 02/07 Stenotrophomonas Maltophilia Blood Culture 02/07 NGTD Urine Culture 02/02 neg NIGEL - on home CPAP - Tracheostomy - not an issue while tracheostomy in place Hyperkalemia-resolved Hypokalemia-resolved - Patient is on Lasix daily, close monitoring of BMP - Replete electrolytes per ICU protocol - Kayexalate discontinued Hypernatremia-resolved - continue Free water flushes 200 q 8 hr - Avoiding nephrotoxins. - Monitor BMP Perforated right colon with ischemic colitis - s/p ex-lap, extended right hemicolectomy with primary ileocolic anastamosis - s/p Ex lap 01/05 for bleeding gastric ulcer - management per general surgery - Open abdominal wound-2 small open areas of incision with continued packing, Primapore dressing twice a day to abdomen per general surgery. Granulation tissue Acute protein calorie malnutrition - severe -Nutrition reconsulted, for recommendations regarding supplementation - Beneprotein - Prealbumin 14 on 01/26 - Jevity goal rate to 65/hr based on nutrition most recent recommendations @ goal, the patient is tolerating 50 cc/hour we'll increase to 55, no episodes of nausea Chronic hepatitis C - s/p interferon/ribavirin years ago - Liver biopsy 04/14/08 - monitor for liver failure -02/14 Ammonia level 31 -Alert oriented responsive Gastric ulcer disease - EGD 12/26/15 showed 2 large gastric ulcers with active bleeding - status post epinephrine infusion and cauterization - To OR 01/05 with GI bleeding and hemorrhagic shock. -S/P gastrotomy with ligation of gastric ulcer, lysis of adhesions - Continue Protonix 40 g IV q12h Acute Anemia - secondary to acute blood loss - Hgb stable 8, will transfuse for hemoglobin less than 7 - last transfused 1 unit PRBC 02/02 - No obvious active bleeding. - Ferrous Sulfate 300mg bid Thrombocytopenia-resolved - Monitor CBC - Hep PLT ab negative on 12/03 - due to chronic liver disease Hyperglycemia of Critical Illness - Monitor blood glucose per ICU protocol - Levemir BID on hold, not clinically indicated at this time - Low-dose insulin sliding scale DC Critical illness polyneuropathy -Continue PT daily, out of bed to chair, functional maintenance of extremities 4 -- will try to stand him at some point this week, it will take a lot of ancillary support to do this Open wounds,B/L upper extremities multiple stages -Reconsult wound care 02/11 B/L upper extremities -Digits on hand reddened and edematous Facial spasms/twitching -02/12 CT brain normal, possible left mastoiditis, ID aware -Calcium level 9.1, BMP normal -ENT consult -02/14 MRI brain: no acute disease. - EEG 02/12-mouth and facial twitching noted. The discharge could be of epileptiform significant, excessive artifact study limited. -02/15 Resolution of facial twitching -EEG 02/17 moderate diffuse encephalopathy possibly may be slight increased tendency for seizure. Noted bifrontal sharps and slow sharp complex noted -Neurology reconsulted for follow-up Urinary Retention: -- 02/16 Terazosin 5mg qhs. -- plan to try matos removal in 2 days (anticipated 02/19) GI Prophylaxis: -- Protonix IV BID DVT Prophylaxis: - SCDs - No chemical DVT Prophylaxis, OOB to chair and daily functional maintenance of extremities x 4 ACCESS: --PIV x 2. Discuss [employer] at bedside. Level 2 Physician Fe Poole Problem Qualifiers (1) Respiratory failure: Qualified Code: J96.00 - Acute respiratory failure, unspecified whether with hypoxia or hypercapnia (2) Altered mental status: Qualified Code: R41.0 - Delirium (3) Sepsis: Qualified Code: A41.9 - Sepsis, due to unspecified organism Fe Poole MD Feb 19, 2016 17:00
[2016-02-19] MEDS: TERAZOSIN HCL 5 MG CAP PO SCH (20:32)
[2016-02-20] VITALS (18 sets, daily range): BP systolic 112–135; BP diastolic 63–81; PULSE 91–116; RESP 18–34; TEMP 98.1–98.7; O2SAT 94–100
[2016-02-20] MEDS: oxyCODONE HCL ORAL CONC 20 MG/ML SYRINGE PO SCH ×7 (00:26→23:47)
[2016-02-20] MEDS: FREE WATER G-TUBE SCH ×3 (00:26→16:30)
[2016-02-20] MEDS: FUROSEMIDE 20 MG/2 ML VIAL IV PUSH SCH ×4 (03:43→19:43)
[2016-02-20] MEDS: cefTAZidime INJ 2,000 MG in SODIUM CHLORIDE 0.9% INJ 100 ML IV SCH ×3 (03:43→19:41)
[2016-02-20] MEDS: CHLORHEXIDINE GLUCONATE 2 % 1 PACK (2 CLOTHS) TOP SCH (03:43)
[2016-02-20 04:43] LABS: AUTOMATED NEUTROPHIL # 11.2 TH/MM3 (1.8-7.7); BASOPHIL # 0.2 TH/MM3 (0-0.2); BASOPHIL % 1.3 % (0.0-2.0); EOSINOPHIL # 1.9 TH/MM3 (0-0.4); HEMATOCRIT 24.6 % (39.0-51.0); LYMPH % 17.2 % (9.0-44.0); LYMPHOCYTE # 3.3 TH/MM3 (1.0-4.8); MEAN CELL VOLUME 92.1 FL (80.0-100.0); MEAN CORPUSCULAR HEMOGLOBIN 29.2 PG (27.0-34.0); MEAN CORPUSCULAR HGB CONC 31.8 % (32.0-36.0); NEUT % 58.5 % (16.0-70.0); PLATELET COUNT 601 TH/MM3 (150-450); RED BLOOD COUNT 2.67 MIL/MM3 (4.50-5.90); RED CELL DISTRIBUTION WIDTH 18.3 % (11.6-17.2); WHITE BLOOD COUNT 19.2 TH/MM3 (4.0-11.0)
[2016-02-20 04:45] LABS: HEMO FLAGS AUTO DIFF
[2016-02-20 04:50] LABS: BICARBONATE 25.7 MEQ/L (21.0-32.0); MAGNESIUM 2.1 MG/DL (1.5-2.5); POTASSIUM 3.9 MEQ/L (3.5-5.1)
[2016-02-20] MEDS: METOPROLOL TARTRATE 25 MG TAB TUBE SCH ×4 (05:22→23:47)
[2016-02-20] MEDS: PANTOPRAZOLE SODIUM 40 MG VIAL IV PUSH SCH ×2 (05:22→16:29)
[2016-02-20 05:55] LABS: SCAN/DIFF AUTO DIFF CONFIRMED
[2016-02-20 05:56] LABS: PLATELET ESTIMATE SMEAR HIGH (NORMAL); PLATELET MORPHOLOGY NORMAL (NORMAL)
[2016-02-20] MEDS: CHLORHEXIDINE 0.12% (ORAL KIT) 15 ML CUP MT SCH ×2 (08:00→19:41)
[2016-02-20] MEDS: FERROUS SULFATE 300 MG /5ML UDC TUBE SCH ×2 (08:45→19:42)
[2016-02-20] MEDS: MULTIVITAMINS LIQUID 5 ML UDC TUBE SCH (08:45)
[2016-02-20] MEDS: NEOMYCIN/POLYMYXIN/BACITRACIN OINT 15 GM TUBE TOPICAL SCH ×2 (08:46→21:00)
[2016-02-20] MEDS: POVIDONE IODINE 10% OINT 30 GM TUBE TOPICAL SCH (08:46)
[2016-02-20] MEDS: SILVER SULFADIAZINE 1% CR 400 GM JAR TOPICAL SCH (08:46)
[2016-02-20] MEDS: HYDROmorphone HCL PF 4 MG/ML VIAL IV PUSH PRN (14:20)
--- NOTE | 2016-02-20 14:28 | HHI.CCPN ---
Subjective Remarks/Hospital Course 55-year-old male brought by EMS with altered mental status. He has history of chronic opiate medications including methadone and morphine that he takes for pain management and hence they gave him Narcan IV which brought the GCS up to 13. The blood glucose was 74. He has open wounds from his right upper and bilateral lower extremities. He has history of hepatitis C. Last week he was pealing and eating shrimps. Bedside blood sugar was 76 in the ER. He was tachycardic in 1 teens and was intubated in the ED for airway protection. Admitted to ICU with sepsis due to Staph Aureus hand infection and E. Coli bacteriemia. Hospital course complicated by perforated ascending colon with extended right hemicolectomy, primary ileocolic anastamosis, open abdomen, septic shock, acute hypoxic and hypercarbic respiratory failure 12/19. Taken back to the OR 12/20 afternoon for washout and completion colectomy. 12/25 Hemoglobin dropped to 4.1. Noted to have bloody drainage from G-tube and dorsal ileostomy with black stool output due to 2 gastric ulcers bleeding, stomach a significant part had decreased discoloration indicating probable ischemia. s/p epi injection and cauterization. 12/27Tracheostomy placed. 01/06: Underwent exploratory laparotomy with findings of bleeding gastric ulcer which was oversewn by Dr. Verdin abdomen left open with wound VAC in place. Now closed. On trach collar occasionally alternation intermittently with a CPAP. 02/10 Tmax 100.0. The patient has been maintain on CPAP 15 over 5/24 hours without difficulty. O2 saturations greater than 92%. Plan for trach collar trials today. 02/11 Tmax 98.4. The patient was unable to begin trach collar trials yesterday. The patient became tachypnea, RR 50's on CPAP at 4:30 yesterday requiring mechanical ventilation being placed on a rate.Patient has been maintained on mechanical ventilation overnight without any respiratory distress. O2 saturation remains 9798%. No episodes of nausea last night the patient tolerated tube feeds at 50/cc, will advance to goal today. 02/12 Afebrile. This a.m., upon examination, the patient spontaneously had eyes open but was not responding to commands as previously. Noted facial twitching eye twitching specifically the right side of face. The patient was not mouthing any words. Concern for subclinical seizure activity, or elevated ammonia levels. Ammonia level drawn, CT scan obtained EEG pending. Patient also did not tolerate tube feeds overnight. 02/13. Patient has tolerated tube feeds for the last 24 hours, noted albumin level decreased slightly from 1.1-1.0. Nutrition reconsulted for possible supplementation aids. Patient underwent EEG yesterday,, inconclusive could be of epileptiform significant, study was limited due to excessive artifact. CT brain revealed possible left mastoiditis, ammonia level not elevated .Upon examination, patient continues to have facial twitching, intermittently. 02/14 Afebrile. The patient continues to tolerate tube feeds currently at 40 cc /hour, no nausea last evening. Continue noted facial twitching by staff, the patient will go undergo MRI studies today. The patient was able to tolerate CPAP trials for 12 hours yesterday, and class placed back on the vent at 6 PM. 02/15: afebrile. neuro symptoms have resolved. now talking and interactive. smiling. 02/16: afebrile. mental status back to baseline. tolerating cpap 18/5/40% today. interactive. I had a long conversation with the Sarah family today about the fact that, while we continue to make small progresses in his acute illnesses, we have made huge steps backwards in overall functioning. He is much more malnurished and deconditioned than he was on admission, and he is now starting to get opportunistic type infections. All of these point to an overall decline , and I am concerned that he may not survive to hospital discharge, but succumb to repeat medical complications from his now chronic medical diseases. I expressed that I would continue to remain aggressive as long as he wanted me to , but the family needed to start to think about very realistic goals of care, and if we continued to decline in overall functional status and deconditioning, we may consider if we have an acute decline, transitioning to a more comfort type goals. They expressed understanding of this. 02/17: No acute events overnight. Conversation with family per Dr. Chavez yesterday. Patient was placed on Hytrin yesterday. Patient is alert and responsive, mouthing words. Patient continues to tolerate CPAP. 02/18: Afebrile. The patient tolerated CPAP for 5 hours today. Evaluation on right hand digits remain edematous and reddened, noted Adaptic adherence to tendons. Wound care we consulted regarding clarification of wound care instructions. 02/19: The patient tolerated trach collar trials for approximately 30 minutes yesterday. The patient continues on CPAP trials today. Neurology was consulted regarding repeat EEG showing several spikes possible epileptiform activity. Wound care was reconsulted regarding edematous reddened digits right hand and left forearm. Objective Vital Signs Date Time Temp Pulse Resp B/P Pulse Ox O2 Delivery O2 Flow Rate FiO2 02/20/16 11:16 95 40 02/20/16 10:00 105 02/20/16 08:00 98.6 24 116/80 02/20/16 07:00 Mechanical Ventilator Intake and Output 02/19/16 02/19/16 02/20/16 08:00 16:00 00:00 Intake Total 689 ml 910 ml 791 ml Output Total 700 ml 700 ml 670 ml Balance -11 ml 210 ml 121 ml Result Diagram: 02/20/16 0319 02/20/16 0319 Imaging Last Impressions Chest X-Ray 02/11/16 0600 Signed Impressions: Service Date/Time: Thursday, February 11, 2016 05:41 - CONCLUSION: Rotated study demonstrating no significant interval change. Owen Arzola MD Upper Extremity Ultrasound 01/30/16 0000 Signed Impressions: Service Date/Time: Saturday, January 30, 2016 11:18 - CONCLUSION: Limited exam without thrombus identified. Raudel Mckinney MD FACR Thoracentesis 01/28/16 0000 Signed Impressions: Service Date/Time: Thursday, January 28, 2016 12:54 - CONCLUSION: Uncomplicated CT-guided thoracentesis. Ramone Hall MD Abdomen/Pelvis CT 01/23/16 0800 Signed Impressions: Service Date/Time: Saturday, January 23, 2016 09:05 - CONCLUSION: Relative to the prior study the marked distention of the stomach is reduced. There is a persistent 5 cm left upper quadrant sub-diaphragmatic fluid collection and drain in the left upper quadrant. Patient is post splenectomy. Jejunostomy is in place and ostomy is noted in the right lower abdomen. No free fluid or free air is appreciated and there is no evidence of obstruction. Bilateral pleural effusions persists small but slightly larger on the right with left lower lobe consolidation. Jared Medina MD ADDENDUM: I have reviewed the images with respect to her request made for left subdiaphragmatic drainage of a fluid collection. No fluid collection is observed within the left upper quadrant. There is residual splenic tissue that measures 5 cm in diameter with Hounsfield units 62. The stomach fundus extends up into the subdiaphragmatic location. No subdiaphragmatic fluid collection is observed. Surgical drains are noted. Osmar Chavez Jr., MD Chest CT 01/05/16 0000 Signed Impressions: Service Date/Time: Tuesday, January 05, 2016 23:15 - CONCLUSION: 1. Persistent left lower lobar consolidation. Improved consolidative infiltrates in the right lower lung. 2. Interval increase size bilateral pleural effusions , left greater than right. Osmar Alegria MD Celiac/Hepatic Arteriogram 12/27/15 0000 Signed Impressions: Service Date/Time: December 13:41 - CONCLUSION: 1. No active GI bleed identified. Robert Mckinney MD Abdomen X-Ray 12/18/15 0000 Signed Impressions: Service Date/Time: Friday, December 18, 2015 16:05 - CONCLUSION: Feeding tube tip is at the gastric antrum. Arnaldo Elias MD Head CT 12/02/15 1013 Signed Impressions: Service Date/Time: Wednesday, December 02, 2015 11:00 - CONCLUSION: 1. No intracranial abnormality is seen. 2. Air-fluid level in the right maxillary sinus. Arnaldo Reyes MD Last 24 hours Impressions Chest X-Ray 02/05/16 0600 Signed Impressions: Service Date/Time: Friday, February 05, 2016 04:11 - CONCLUSION: Worsening/developing effusions and basilar consolidation, currently left worse than right. Arnaldo Elias MD Objective Remarks GENERAL: Middle-aged chronically critically ill, lying in bed , awake, alert, interactive. HEENT: NCAT. mucous membranes moist. NECK: [address], no active bleeding, no evidence of infection. RESPIRATORY: Normal respiratory rate. Breath sounds present bilaterally, clear without wheezing or rhonchi. CARDIOVASCULAR: Regular, tachycardic. HR 110's. No murmurs rubs or gallops. GASTROINTESTINAL: J tube in place with tube feeds running @ 40cc/hr.Ostomy with brown colored stool approx 100cc MUSCULOSKELETAL: Pitting edema 2+ bilateral feet and hands. Gauze dressing bilateral upper extremity. Multiple open wounds in the lower extremity with gauze dressing. NEURO: Awake. Alert, interactive. RASS 0, CAM -. mouthing words. 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 Miller). - Trach exchanged 8.0 Shiley with cuff on 01/19 - DuoNeb q6h and as needed - Last CT guided thoracentesis 01/27 - CXR 02/11 unchanged - Continue fluid mobilization with lasix - continue CPAP trials and trach collar trials as tolerated Leukocytosis Bandemia-resolved - re-cultured 02/07 - Bands 6->1->11->2->1 (02/16) - ID following, Dr. Becerra - WBC 18->18 today Sputum Culture 02/12 Stenotrophomonas Maltophilia Sputum Culture 02/07 Stenotrophomonas Maltophilia Blood Culture 02/07 NGTD Urine Culture 02/02 neg NIGEL - on home CPAP - Tracheostomy Hyperkalemia-resolved Hypokalemia-resolved - Patient is on Lasix daily, close monitoring of BMP - Replete electrolytes per ICU protocol - Kayexalate discontinued Hypernatremia-resolved - continue Free water flushes 200 q 8 hr - Avoiding nephrotoxins. - Monitor BMP Perforated right colon with ischemic colitis - s/p ex-lap, extended right hemicolectomy with primary ileocolic anastamosis - s/p Ex lap 01/05 for bleeding gastric ulcer - management per general surgery - Open abdominal wound-2 small open areas of incision with continued packing, Primapore dressing twice a day to abdomen per general surgery. Granulation tissue Acute protein calorie malnutrition - severe -Nutrition reconsulted, for recommendations regarding supplementation - Beneprotein - Prealbumin 14 on 01/26 - Jevity goal rate to 65/hr based on nutrition most recent recommendations @ goal, the patient is tolerating 55cc/hr, no episodes of nausea Chronic hepatitis C - s/p interferon/ribavirin years ago - Liver biopsy 04/14/08 - monitor for liver failure -02/14 Ammonia level 31 -Alert oriented responsive Gastric ulcer disease - EGD 12/26/15 showed 2 large gastric ulcers with active bleeding - status post epinephrine infusion and cauterization - To OR 01/05 with GI bleeding and hemorrhagic shock. -S/P gastrotomy with ligation of gastric ulcer, lysis of adhesions - Continue Protonix 40 g IV q12h Acute Anemia - secondary to acute blood loss - Hgb stable 8, will transfuse for hemoglobin less than 7 - last transfused 1 unit PRBC 02/02 - No obvious active bleeding. - Ferrous Sulfate 300mg bid Thrombocytopenia-resolved - Monitor CBC - Hep PLT ab negative on 12/03 - due to chronic liver disease Hyperglycemia of Critical Illness - Monitor blood glucose per ICU protocol - Levemir BID on hold, not clinically indicated at this time - Low-dose insulin sliding scale DC Critical illness polyneuropathy -Continue PT daily, out of bed to chair, functional maintenance of extremities 4 -- will try to stand him at some point this week, it will take a lot of ancillary support to do this Open wounds,B/L upper extremities multiple stages -Reconsult wound care 02/11 B/L upper extremities -Digits on hand reddened and edematous-wound care consulted, Plastic reconsulted Facial spasms/twitching -02/12 CT brain normal, possible left mastoiditis, ID aware -Calcium level 9.1, BMP normal -ENT -to be followed up on outpatient basis -02/14 MRI brain: no acute disease. - EEG 02/12-mouth and facial twitching noted. The discharge could be of epileptiform significant, excessive artifact study limited. -02/15 Resolution of facial twitching -EEG 1/ moderate diffuse encephalopathy possibly may be slight increased tendency for seizure. Noted bifrontal sharps and slow sharp complex noted -Neurology reconsulted for follow-up Urinary Retention: -- 02/16 Terazosin 5mg qhs. -- plan to try matos removal in 2 days (anticipated 02/19) GI Prophylaxis: -- Protonix IV BID DVT Prophylaxis: - SCDs - No chemical DVT Prophylaxis, OOB to chair and daily functional maintenance of extremities x 4 ACCESS: --PIV x 2. Discuss [employer] at bedside. Level 2 Physician Fe Poole Problem Qualifiers (1) Respiratory failure: Qualified Code: J96.00 - Acute respiratory failure, unspecified whether with hypoxia or hypercapnia (2) Altered mental status: Qualified Code: R41.0 - Delirium (3) Sepsis: Qualified Code: A41.9 - Sepsis, due to unspecified organism Fe Poole MD Feb 20, 2016 14:28
[2016-02-20] MEDS: fentaNYL 100 MCG/HR PATCH TD SCH (16:28)
[2016-02-20] MEDS: REMOVE OLD PATCH TD SCH ×2 (16:28→16:29)
[2016-02-20] MEDS: fentaNYL 25 MCG/HR PATCH TD SCH (16:29)
[2016-02-20] MEDS: TERAZOSIN HCL 5 MG CAP PO SCH (19:42)
[2016-02-20] MEDS ORDERED: levETIRAcetam 500 MG TAB PO SCH (21:00)
--- NOTE | 2016-02-20 21:01 | HHI.PR ---
Review/Management Plan DIAGNOSTIC IMPRESSION 1. Witnessed facial twitches that was suspicious for seizure activity. 2. Abnormal EEG recordings, no clear evidence of ictal activity because of muscle artifact, however there is a reported risk of seizure activity 3. MRI did not show any acute intracranial abnormality. PLAN - Given evidence of a tendency of seizure activity on the EEG recording, start Keppra 500mg bid - Seizure precautions - DVT prophylaxis Diagnosis/Plan: Subjective Subjective Comments No acute events reported Neurology reconsulted for an abnormal EEG No reported seizure activity Active Medications Current Medications Medications (Trade) Dose Ordered Sig/[place] Route Start Time Stop Time Status Last Admin (NS Flush) 2 ml UNSCH PRN IVF 12/02/15 10:15 02/18/16 19:33 Miscellaneous Information 1 Q361D XX 12/02/15 13:45 (Chlorhexidine 2% Cloth) 3 pack Taper DAILY@04 TOP 12/03/15 04:00 11/28/16 03:59 02/20/16 03:43 (Chlorhexidine 2% Cloth) 3 pack UNSCH PRN TOP 12/02/15 13:45 (Peridex 0.12% Liq) 15 ml BID@08,20 MT 12/06/15 20:00 02/20/16 19:41 (Betadine 10% Oint) 1 applic DAILY TOPICAL 12/12/15 15:00 02/20/16 08:46 (Dilaudid Pf Inj) 2 mg Q2H PRN IV PUSH 12/16/15 14:00 02/19/16 14:13 (Roxicodone Intensol Liq) 20 mg Q4H PO 01/03/16 13:00 02/20/16 19:43 (Neosporin Oint) 1 applic Q12HR TOPICAL 01/03/16 21:00 02/20/16 08:46 (Ferrous Sulfate Liq) 300 mg BID TUBE 01/16/16 21:00 02/20/16 19:42 (Protonix Inj) 40 mg Q12H IV PUSH 01/18/16 06:00 02/20/16 16:29 (Theragran Liq) 5 ml DAILY TUBE 01/21/16 09:00 02/20/16 08:45 (Silvadene 1% Cream (400 Gm)) 1 applic DAILY TOPICAL 01/23/16 12:30 02/20/16 08:46 (Trandate Inj) 20 mg Q2H PRN IV 01/23/16 18:30 02/02/16 16:38 (Apresoline Inj) 20 mg Q4H PRN IV PUSH 01/24/16 02:15 01/29/16 17:36 (Tylenol 650 Mg/ 20 ml Liq) 650 mg Q6H PRN TUBE 01/27/16 08:30 02/16/16 12:46 (Free Water) 200 ml Q8H G-TUBE 01/27/16 17:00 02/20/16 16:30 (Duragesic 100 Mcg Patch.72 Hr) 1 patch Q3D TD 01/27/16 17:00 02/20/16 16:28 (Duragesic 25 Mcg Patch.72 Hr) 1 patch Q3D TD 01/27/16 17:00 02/20/16 16:29 Miscellaneous Information 1 Q3D TD 01/27/16 17:00 02/20/16 16:29 Miscellaneous Information 1 Q3D TD 01/27/16 17:00 02/20/16 16:28 (Dilaudid Pf Inj) 4 mg Q2H PRN IV PUSH 01/27/16 17:00 02/20/16 14:20 (Lopressor Inj) 5 mg Q6H PRN IV PUSH 01/29/16 01:45 01/29/16 01:51 (Lopressor) 75 mg Q6H TUBE 02/01/16 12:00 02/20/16 16:30 (Zofran Inj) 4 mg Q8H PRN IV PUSH 02/04/16 16:00 02/12/16 15:45 Furosemide 10 mg 10 mg Q6H IV PUSH 02/07/16 09:00 02/20/16 19:43 (Fortaz Inj/NS Inj) 100 ml @ 200 mls/hr Q8H IV 02/16/16 20:00 02/20/16 19:41 (Hytrin) 5 mg HS PO 02/17/16 21:00 02/20/16 19:42 Allergies Allergies Coded Allergies Compazine (Verified Allergy, Severe, VOMITING, RASH, 08/26/14) Demerol (Verified Allergy, Severe, VOMITING, 08/26/14) Levaquin (Verified Allergy, Severe, 08/26/14) Penicillin (Verified Allergy, Severe, Rash, 08/26/14) Phenergan (Verified Allergy, Severe, VOMITING, 08/26/14) Uncoded Allergies ANTI-CONVULSIVES ( Allergy, Severe, MIGRAINES, SLURRED SPEECH,, 01/23/14) Exam I&O / VS 02/19/16 02/19/16 02/20/16 15:00 23:00 07:00 Intake Total 910 ml 791 ml 649 ml Output Total 700 ml 670 ml 580 ml Balance 210 ml 121 ml 69 ml IV Total 100 ml 100 ml 100 ml Tube Feeding 590 ml 431 ml 429 ml Other 220 ml 260 ml 120 ml Output Urine Total 525 ml 600 ml 500 ml Stool Total 175 ml 70 ml 80 ml Vital Signs Date Time Temp Pulse Resp B/P Pulse Ox O2 Delivery O2 Flow Rate FiO2 02/20/16 20:00 100 Mechanical Ventilator 45 02/20/16 18:00 95 02/20/16 16:00 103 02/20/16 16:00 98.3 103 24 121/63 100 02/20/16 16:00 45 02/20/16 15:24 100 40 02/20/16 14:00 100 02/20/16 12:00 45 02/20/16 12:00 100 02/20/16 12:00 98.7 116 34 135/81 94 02/20/16 11:16 95 40 02/20/16 10:00 105 02/20/16 09:00 98 40 02/20/16 08:00 98.6 94 24 116/80 97 02/20/16 08:00 45 02/20/16 08:00 91 02/20/16 07:38 98 40 02/20/16 07:00 100 Mechanical Ventilator 45 02/20/16 06:00 105 02/20/16 05:25 96 40 02/20/16 04:00 101 02/20/16 04:00 45 02/20/16 04:00 98.3 101 18 112/68 96 02/20/16 02:00 102 02/20/16 01:40 98 40 02/20/16 00:00 98.6 114 20 112/71 96 02/20/16 00:00 45 02/20/16 00:00 114 02/19/16 22:00 109 02/19/16 21:32 97 45 Objective Micro and Labs Laboratory Tests Test 02/20/16 03:19 White Blood Count 19.2 Red Blood Count 2.67 Hemoglobin 7.8 Hematocrit 24.6 Mean Corpuscular Volume 92.1 Mean Corpuscular Hemoglobin 29.2 Mean Corpuscular Hemoglobin 31.8 Concent Red Cell Distribution Width 18.3 Platelet Count 601 Mean Platelet Volume 8.9 Neutrophils (%) (Auto) 58.5 Lymphocytes (%) (Auto) 17.2 Monocytes (%) (Auto) 13.0 Eosinophils (%) (Auto) 10.0 Basophils (%) (Auto) 1.3 Neutrophils # (Auto) 11.2 Lymphocytes # (Auto) 3.3 Monocytes # (Auto) 2.5 Eosinophils # (Auto) 1.9 Basophils # (Auto) 0.2 CBC Comment AUTO DIFF Differential Comment AUTO DIFF CONFIRMED Platelet Estimate HIGH Platelet Morphology Comment NORMAL Sodium Level 144 Potassium Level 3.9 Chloride Level 108 Carbon Dioxide Level 25.7 Anion Gap 10 Blood Urea Nitrogen 58 Creatinine 1.34 Estimat Glomerular Filtration 56 Rate Random Glucose 122 Calcium Level 9.5 Phosphorus Level 2.6 Magnesium Level 2.1 Date/Time Procedure Status Source Growth 02/16/16 20:50 Gram Stain - Final Complete Sputum Endotracheal 02/16/16 20:50 Sputum Culture - Final Complete Stenotrophomonas Maltophilia 02/16/16 20:35 Urine Culture - Final Complete Urine Catheterized Urine NO GROWTH IN 48 HOURS. 02/16/16 19:26 Aerobic Blood Culture - Preliminary Resulted Blood Peripheral NO GROWTH IN 4 DAYS 02/16/16 19:26 Anaerobic Blood Culture - Preliminary Resulted Blood Peripheral NO GROWTH IN 4 DAYS Diagnostic Tests - EEG 02/13/2016 Abnormal because of bilateral slowing suggestive of bihemispheric abnormality. Mouth and face twitching is noted on one occasion despite the significant amount, some possible sharp discharge shortly or in between the twitching motor activity. The discharge could be of epileptiform significance. There was no distinct ictal pattern. but the study is limited because of excessive amount of artifact. Clinical correlation is recommended. -EEG 02/18/2016 A poor technical quality EEG. There may be some bifrontal sharps there and sharp slow complex noted. Clinical correlation is needed. Diffuse theta slowing and delta slowing was seen consistent with a moderate diffuse encephalopathy but there may be a slight increased tendency for seizure. Esteban Silva MD Feb 20, 2016 21:00
[2016-02-21] VITALS (18 sets, daily range): BP systolic 97–130; BP diastolic 56–96; PULSE 95–113; RESP 12–34; TEMP 97.9–98.6; O2SAT 93–100
[2016-02-21] MEDS: FREE WATER G-TUBE SCH ×3 (01:00→15:21)
[2016-02-21] MEDS: FUROSEMIDE 20 MG/2 ML VIAL IV PUSH SCH ×4 (03:05→19:55)
[2016-02-21] MEDS: cefTAZidime INJ 2,000 MG in SODIUM CHLORIDE 0.9% INJ 100 ML IV SCH ×3 (03:06→18:59)
[2016-02-21] MEDS: CHLORHEXIDINE GLUCONATE 2 % 1 PACK (2 CLOTHS) TOP SCH (04:00)
[2016-02-21] MEDS: METOPROLOL TARTRATE 25 MG TAB TUBE SCH ×4 (05:14→23:57)
[2016-02-21] MEDS: oxyCODONE HCL ORAL CONC 20 MG/ML SYRINGE PO SCH ×6 (05:15→23:58)
[2016-02-21] MEDS: PANTOPRAZOLE SODIUM 40 MG VIAL IV PUSH SCH ×2 (05:15→16:57)
[2016-02-21] MEDS: CHLORHEXIDINE 0.12% (ORAL KIT) 15 ML CUP MT SCH ×2 (08:00→19:54)
[2016-02-21] MEDS: HYDROmorphone HCL PF 2 MG/ML VIAL IV PUSH PRN (08:50)
[2016-02-21] MEDS: FERROUS SULFATE 300 MG /5ML UDC TUBE SCH ×2 (08:50→19:57)
[2016-02-21] MEDS: MULTIVITAMINS LIQUID 5 ML UDC TUBE SCH (08:50)
[2016-02-21] MEDS: POVIDONE IODINE 10% OINT 30 GM TUBE TOPICAL SCH (08:51)
[2016-02-21] MEDS: SILVER SULFADIAZINE 1% CR 400 GM JAR TOPICAL SCH (08:51)
[2016-02-21] MEDS: NEOMYCIN/POLYMYXIN/BACITRACIN OINT 15 GM TUBE TOPICAL SCH ×2 (08:51→19:57)
--- NOTE | 2016-02-21 13:59 | PD.PLAS.PN ---
Subjective Remarks 02/20/16 Patient awake and alert. Vital Signs Date Time Temp Pulse Resp B/P Pulse Ox O2 Delivery O2 Flow Rate FiO2 02/21/16 13:49 100 Mechanical Ventilator 40 02/21/16 13:49 40 02/21/16 12:00 98.3 107 34 130/87 94 02/21/16 12:00 107 02/21/16 11:00 93 Trach Collar 50 02/21/16 10:56 93 T-piece 5.00 50 02/21/16 10:00 103 02/21/16 08:00 97.9 96 15 105/62 97 02/21/16 08:00 45 02/21/16 08:00 97 02/21/16 07:26 100 40 02/21/16 07:00 98 Mechanical Ventilator 45 02/21/16 06:15 15 02/21/16 06:00 95 02/21/16 04:22 100 40 02/21/16 04:00 102 02/21/16 04:00 45 02/21/16 04:00 98.0 103 22 101/63 96 02/21/16 02:00 102 02/21/16 01:40 100 40 02/21/16 00:00 98.1 98 20 117/96 98 02/21/16 00:00 45 02/21/16 00:00 106 02/20/16 22:00 40 02/20/16 22:00 97 40 02/20/16 22:00 99 02/20/16 20:00 95 40 02/20/16 20:00 100 Mechanical Ventilator 45 02/20/16 20:00 98.1 98 20 126/66 98 02/20/16 20:00 45 02/20/16 20:00 98 02/20/16 18:00 95 02/20/16 16:00 103 02/20/16 16:00 98.3 103 24 121/63 100 02/20/16 16:00 45 02/20/16 15:24 100 40 02/20/16 14:00 100 I/O 02/20/16 02/20/16 02/20/16 02/21/16 02/21/16 02/21/16 07:00 15:00 23:00 07:00 15:00 23:00 Intake Total 649 ml 840 ml 785 ml 705 ml Output Total 580 ml 700 ml 850 ml 700 ml Balance 69 ml 140 ml -65 ml 5 ml IV Total 100 ml 100 ml 100 ml 100 ml Tube Feeding 429 ml 420 ml 425 ml 485 ml Other 120 ml 320 ml 260 ml 120 ml Output Urine Total 500 ml 650 ml 700 ml 700 ml Stool Total 80 ml 50 ml 150 ml Date/Time Procedure Status Source Growth 02/16/16 20:50 Gram Stain - Final Complete Sputum Endotracheal 02/16/16 20:50 Sputum Culture - Final Complete Stenotrophomonas Maltophilia 02/16/16 20:35 Urine Culture - Final Complete Urine Catheterized Urine NO GROWTH IN 48 HOURS. 02/16/16 19:26 Aerobic Blood Culture - Final Complete Blood Peripheral NO GROWTH IN 5 DAYS 02/16/16 19:26 Anaerobic Blood Culture - Final Complete Blood Peripheral NO GROWTH IN 5 DAYS Result Diagram: 02/20/1631802/20/16318 Exam Findings Some redness to the fingers of the right hand, middle and ring. Plan Impression: The patient appears to be ready and stable for debridement. Plan: We will proceed with the debridement and application of the Integra tomorrow in the OR. Barbara Pedro MD Feb 21, 2016 13:59
[2016-02-21] MEDS: levETIRAcetam 500 MG/5 ML UDC PO SCH ×2 (15:21→19:55)
--- NOTE | 2016-02-21 17:18 | HHI.HCPN ---
Reason for visit a. To assist with evaluation and management of symptoms including: pain, malnutrition, wounds, AMS b. To assist medical decision maker(s) with: better understanding of current medical conditions; weighing benefits/burdens of medical treatment options; making medical treatment decisions. . (Leah Pop) Subjective/Interval History . Patient seen and assessed in room 1317. Patient is sitting upright in chair. Mental status has returned to baseline. Patient smiling and attempting to mouth answers to questions. Patient started on Keppra 500 mg 2 times daily, given evidence of tendency for seizure activity on EEG recording. Neurology continues to follow Dr. Pedro saw and evaluated the patient on 02/12/16. Plan to take the patient to the OR for debridement was postponed secondary to patient's altered mental status and concerns for seizure activity. Dr. Pedro assess the patient again today 02/21/16 and plan to proceed with debridement and application of Integra tomorrow in the OR. Patient has a history of chronic pain. Probable causes of plan include multiple surgeries, invasive lines, Sandoval, ostomy, NG tube, tracheostomy, immobility, wounds, bedbound status etc. On fentanyl patch 125mcg/h q3d and oxycodone 20mg per tube q4h scheduled. Scheduled acetaminophen was discontinued on 01/16/16 given h/o Hep C with hepatic fibrosis. Dilaudid 2-4mg Iv q2h PRN for breakthrough pain. 24 hour PRN requirement: Dilaudid 2 mg 1, Oxycodone 20 mg PO 1. . (Leah Pop) Advance Directives Living Will: Never completed Health Care Surrogate: Never completed Durable Power of Muskrat Trapper: Never completed (Leah Pop) Advance Directive Specifics Health Care Surrogate(s): There is no designated health care surrogate. Per [place] statutes, in the absence of written advanced directives healthcare proxy falls to the patient's , Gopi Smith. . Documented care wishes: None available , (Leah Pop) Objective Vital Signs Date Time Temp Pulse Resp B/P Pulse Ox O2 Delivery O2 Flow Rate FiO2 02/21/16 16:00 113 02/21/16 16:00 98.5 113 19 123/72 98 02/21/16 16:00 40 02/21/16 15:48 98 40 02/21/16 14:00 113 02/21/16 13:49 100 Mechanical Ventilator 40 02/21/16 13:49 40 02/21/16 12:00 98.3 107 34 130/87 94 02/21/16 12:00 107 02/21/16 11:00 93 Trach Collar 50 02/21/16 10:56 93 T-piece 5.00 50 02/21/16 10:00 103 02/21/16 08:00 97.9 96 15 105/62 97 02/21/16 08:00 45 02/21/16 08:00 97 02/21/16 07:26 100 40 02/21/16 07:00 98 Mechanical Ventilator 45 02/21/16 06:15 15 02/21/16 06:00 95 02/21/16 04:22 100 40 02/21/16 04:00 102 02/21/16 04:00 45 02/21/16 04:00 98.0 103 22 101/63 96 02/21/16 02:00 102 02/21/16 01:40 100 40 02/21/16 00:00 98.1 98 20 117/96 98 02/21/16 00:00 45 02/21/16 00:00 106 02/20/16 22:00 40 02/20/16 22:00 97 40 02/20/16 22:00 99 02/20/16 20:00 95 40 02/20/16 20:00 100 Mechanical Ventilator 45 02/20/16 20:00 98.1 98 20 126/66 98 02/20/16 20:00 45 02/20/16 20:00 98 02/20/16 18:00 95 Intake & Output 02/21/16 02/21/16 07:00 19:00 Intake Total 1490 ml 952 ml Output Total 1550 ml 625 ml Balance -60 ml 327 ml IV Total 200 ml 100 ml Tube Feeding 910 ml 472 ml Other 380 ml 380 ml Output Urine Total 1400 ml 550 ml Stool Total 150 ml 75 ml . Physical Exam CONSTITUTIONAL/GENERAL: This is a frail chroncially ill middle-aged male patient on T piece via trach. TUBES/LINES/DRAINS: PIV 1, ostomy, trach, Sandoval, J tube SKIN: Skin appears thin and fragile. Bilateral upper and lower wrapped, dressing clean dry and intact. HEAD: Atraumatic. Normocephalic. EYES: No injection or drainage. No sclerae icterus. ENT: Hearing appears normal. Nose without bleeding or purulent drainage. NECK: Trachea midline. CARDIOVASCULAR: Regular rate and rhythm RESPIRATORY/CHEST: Trach to vent. Breath sounds diminished bilaterally. GASTROINTESTINAL: Ostomy with brown colored stool. GENITOURINARY: Without palpable bladder distension. Sandoval catheter in place. MUSCULOSKELETAL: Extremities without clubbing or cyanosis. Atrophy. NEUROLOGICAL: Smiling, attempting to respond to questions by mouthing words. Remains encephalopathic. PSYCHIATRIC: No anxiety or agitation observed. . (Leah Pop) Diagnostic Tests Laboratory Laboratory Tests Test 02/19/16 02/20/16 03:44 03:19 White Blood Count 18.2 TH/MM3 19.2 TH/MM3 (4.0-11.0) (4.0-11.0) Red Blood Count 2.71 MIL/MM3 2.67 MIL/MM3 (4.50-5.90) (4.50-5.90) Hemoglobin 8.0 GM/DL 7.8 GM/DL (13.0-17.0) (13.0-17.0) Hematocrit 25.3 % 24.6 % (39.0-51.0) (39.0-51.0) Mean Corpuscular Volume 93.1 FL 92.1 FL (80.0-100.0) (80.0-100.0) Mean Corpuscular Hemoglobin 29.5 PG 29.2 PG (27.0-34.0) (27.0-34.0) Mean Corpuscular Hemoglobin 31.7 % 31.8 % Concent (32.0-36.0) (32.0-36.0) Red Cell Distribution Width 17.9 % 18.3 % (11.6-17.2) (11.6-17.2) Platelet Count 630 TH/MM3 601 TH/MM3 (150-450) (150-450) Mean Platelet Volume 9.0 FL 8.9 FL (7.0-11.0) (7.0-11.0) Sodium Level 143 MEQ/L 144 MEQ/L (136-145) (136-145) Potassium Level 3.7 MEQ/L 3.9 MEQ/L (3.5-5.1) (3.5-5.1) Chloride Level 106 MEQ/L 108 MEQ/L (98-107) (98-107) Carbon Dioxide Level 27.5 MEQ/L 25.7 MEQ/L (21.0-32.0) (21.0-32.0) Anion Gap 10 MEQ/L (5-15) 10 MEQ/L (5-15) Blood Urea Nitrogen 51 MG/DL (7-18) 58 MG/DL (7-18) Creatinine 1.21 MG/DL 1.34 MG/DL (0.60-1.30) (0.60-1.30) Estimat Glomerular Filtration 63 ML/MIN (>89) 56 ML/MIN (>89) Rate Random Glucose 122 MG/DL 122 MG/DL (74-106) (74-106) Calcium Level 9.5 MG/DL 9.5 MG/DL (8.5-10.1) (8.5-10.1) Phosphorus Level 2.7 MG/DL 2.6 MG/DL (2.5-4.9) (2.5-4.9) Magnesium Level 2.1 MG/DL 2.1 MG/DL (1.5-2.5) (1.5-2.5) Neutrophils (%) (Auto) 58.5 % (16.0-70.0) Lymphocytes (%) (Auto) 17.2 % (9.0-44.0) Monocytes (%) (Auto) 13.0 % (0.0-8.0) Eosinophils (%) (Auto) 10.0 % (0.0-4.0) Basophils (%) (Auto) 1.3 % (0.0-2.0) Neutrophils # (Auto) 11.2 TH/MM3 (1.8-7.7) Lymphocytes # (Auto) 3.3 TH/MM3 (1.0-4.8) Monocytes # (Auto) 2.5 TH/MM3 (0-0.9) Eosinophils # (Auto) 1.9 TH/MM3 (0-0.4) Basophils # (Auto) 0.2 TH/MM3 (0-0.2) CBC Comment AUTO DIFF Differential Comment AUTO DIFF CONFIRMED Platelet Estimate HIGH (NORMAL) Platelet Morphology Comment NORMAL (NORMAL) . (Leah Pop) Result Diagram: 02/20/1631802/20/16318 Procedures 12/02/15: Intubated 12/02/15: NG tube placed 12/02/15: Right subclavian central line placed 12/14/15: Left IJ central line placement BEV PEG tube Ileostomy 12/28/15: Tracheostomy 12/30/15: Right subclavian central venous line placed 01/05/16: Right axillary arterial line placement 01/05/16: Right IJ central line placement 01/05/16: Bronchoscopy 01/17/16: EGD . . . 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 Probable causes of plan include multiple surgeries, invasive lines, Sandoval, ostomy, NG tube, tracheostomy , immobility, wounds, bedbound status etc. On fentanyl patch 125mcg/h q3d. PRN oxycodone and Dilaudid available. . (2) Malnutrition 0-10 Scale: Unable to quantify Comment: Tolerating TF 20cc/ hour status post some nausea yesterday . (3) Wounds, multiple Comment: Dr. Pedro saw and evaluated the patient on 02/12/16. Plan to take the patient to the OR later this week for upper extremity wound debridement if he remains stable and is cleared by his attending physician. . (4) Altered mental status 0-10 Scale: Unable to quantify (He is awake but appears "out of it". He does not attempt to respond to questions by mouthing words. Spoke with Dr. Poole regarding patient's altered mental status. CT head today showed no acute intracranial abnormalities, new opacification of the left mastoid air cells, clinical evaluation for acute left mastoiditis suggested. Ammonia level at 31. EEG pending.) Pertinent Non-Medical Issues Psychosocial:Patient was born in [facility], moving to [place] at a young age. He has 2 siblings who live locally (Feroz and Janeen). 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 The patient met his current (Gopi Smith) through mutual friends and they have now been for approximately 20 years. The patient has 1 adult daughter (Kezia) from a previous relationship. She is 30 years old. Spiritual:No alevism affiliation Legal: There is no designated health care surrogate. Per [place] statutes, in the absence of written advanced directives healthcare proxy falls to the patient 's , Gopi Smith. Ethical issues impacting care: None at this time. . Important Contacts Gopi Smith, spouse: [phone] Kezia Starks, daughter: [phone] . . Prognosis Patient is a 55 year old male with a long history of chronic illnesses. PMH is significant for Hep C, NIGEL, gout, RA, HTN, chronic pain, and migraines. Patient was admitted on 12/02/15 with sepsis due to Staph Aureus hand infection and E. Coli bacteriemia. Patient has been to the OR multiple times for GI bleed. Patient has had persistent anemia/thrombocytopenia requiring multiple transfusions. S/p tracheotomy, ileostomy, BEV 2, and G- tube, patient remains critically ill with an overall poor prognosis. . Code Status: Full Code Plan * FULL CODE * Decision-making: The patient is currently not capacitated to participate in decisions related to medical treatment goals. There is no designated health care surrogate. Per [place] statutes, in the absence of written advanced directives healthcare proxy falls to the patient's . HCP: GOPI SMITH ( ). * Goals: GOALS REMAIN AGGRESSIVE. However, patient's daughter and agree the patient would not want to be kept alive on machines. They do not feel he is at the point where they need to consider stopping care because he has "gotten through so much are ready" * Discussed with patient's nurse and Dr. Yanes. * Symptom managementpain: Patient has a history of chronic pain. Probable causes of plan include multiple surgeries, invasive lines, Sandoval, ostomy, NG tube, tracheostomy, immobility, wounds, bedbound status etc. On fentanyl patch 125mcg/h q3d. PRN Dilaudid and oxycodone available, being sparingly used. * Symptom managementwounds: Plan to take the patient to the OR tomorrow for debridement of wounds. * Family meeting tomorrow 02/22/16 at 10:30 AM. * Palliative care will continue to follow this patient throughout his hospitalization to establish trust, assist with symptom management and clarification of medical treatment goals. . (Leah Pop) Attestation To help prompt me to consider important information that might be impacting today's encounter and assessment, information from prior notes written by myself or my colleagues may have been "brought forward" into today's note. My signature on this note, however, is an attestation that I personally performed the exam, history, and/or decision-making noted today, and, unless otherwise indicated, the interactions with patient, family, and staff as well as the review of records all occurred today. I also attest that the listed assessment and stated plan reflect my best clinical judgment today based on the combination of historical information, prior notes, and today's exam/ interactions. When time spent is documented, it refers only to time spent today by the signer, or if indicated, combined time spent today by collaborating physician/nurse practitioner. . (Leah Pop) Collaborating MD Comments Chart reviewed. Case discussed with palliative care SLAB CONDITIONER SUPERVISOR. Above SLAB CONDITIONER SUPERVISOR note reviewed and I concur. . (Nikolas Guzmán MD) Leah Pop Feb 21, 2016 17:18 Nikolas Guzmán MD Apr 05, 2016 14:35
[2016-02-21] MEDS: TERAZOSIN HCL 5 MG CAP PO SCH (19:55)
--- NOTE | 2016-02-21 20:30 | HHI.CCPN ---
Subjective Remarks/Hospital Course 55-year-old male brought by EMS with altered mental status. He has history of chronic opiate medications including methadone and morphine that he takes for pain management and hence they gave him Narcan IV which brought the GCS up to 13. The blood glucose was 74. He has open wounds from his right upper and bilateral lower extremities. He has history of hepatitis C. Last week he was pealing and eating shrimps. Bedside blood sugar was 76 in the ER. He was tachycardic in 1 teens and was intubated in the ED for airway protection. Admitted to ICU with sepsis due to Staph Aureus hand infection and E. Coli bacteriemia. Hospital course complicated by perforated ascending colon with extended right hemicolectomy, primary ileocolic anastamosis, open abdomen, septic shock, acute hypoxic and hypercarbic respiratory failure 12/19. Taken back to the OR 12/20 afternoon for washout and completion colectomy. 12/25 Hemoglobin dropped to 4.1. Noted to have bloody drainage from G-tube and dorsal ileostomy with black stool output due to 2 gastric ulcers bleeding, stomach a significant part had decreased discoloration indicating probable ischemia. s/p epi injection and cauterization. 12/27Tracheostomy placed. 01/06: Underwent exploratory laparotomy with findings of bleeding gastric ulcer which was oversewn by Dr. Verdin abdomen left open with wound VAC in place. Now closed. On trach collar occasionally alternation intermittently with a CPAP. 02/10 Tmax 100.0. The patient has been maintain on CPAP 15 over 5/24 hours without difficulty. O2 saturations greater than 92%. Plan for trach collar trials today. 02/11 Tmax 98.4. The patient was unable to begin trach collar trials yesterday. The patient became tachypnea, RR 50's on CPAP at 4:30 yesterday requiring mechanical ventilation being placed on a rate.Patient has been maintained on mechanical ventilation overnight without any respiratory distress. O2 saturation remains 9798%. No episodes of nausea last night the patient tolerated tube feeds at 50/cc, will advance to goal today. 02/12 Afebrile. This a.m., upon examination, the patient spontaneously had eyes open but was not responding to commands as previously. Noted facial twitching eye twitching specifically the right side of face. The patient was not mouthing any words. Concern for subclinical seizure activity, or elevated ammonia levels. Ammonia level drawn, CT scan obtained EEG pending. Patient also did not tolerate tube feeds overnight. 02/13. Patient has tolerated tube feeds for the last 24 hours, noted albumin level decreased slightly from 1.1-1.0. Nutrition reconsulted for possible supplementation aids. Patient underwent EEG yesterday,, inconclusive could be of epileptiform significant, study was limited due to excessive artifact. CT brain revealed possible left mastoiditis, ammonia level not elevated .Upon examination, patient continues to have facial twitching, intermittently. 02/14 Afebrile. The patient continues to tolerate tube feeds currently at 40 cc /hour, no nausea last evening. Continue noted facial twitching by staff, the patient will go undergo MRI studies today. The patient was able to tolerate CPAP trials for 12 hours yesterday, and class placed back on the vent at 6 PM. 02/15: afebrile. neuro symptoms have resolved. now talking and interactive. smiling. 02/16: afebrile. mental status back to baseline. tolerating cpap 18/5/40% today. interactive. I had a long conversation with the Sarah family today about the fact that, while we continue to make small progresses in his acute illnesses, we have made huge steps backwards in overall functioning. He is much more malnurished and deconditioned than he was on admission, and he is now starting to get opportunistic type infections. All of these point to an overall decline , and I am concerned that he may not survive to hospital discharge, but succumb to repeat medical complications from his now chronic medical diseases. I expressed that I would continue to remain aggressive as long as he wanted me to , but the family needed to start to think about very realistic goals of care, and if we continued to decline in overall functional status and deconditioning, we may consider if we have an acute decline, transitioning to a more comfort type goals. They expressed understanding of this. 02/17: No acute events overnight. Conversation with family per Dr. Chavez yesterday. Patient was placed on Hytrin yesterday. Patient is alert and responsive, mouthing words. Patient continues to tolerate CPAP. 02/18: Afebrile. The patient tolerated CPAP for 5 hours today. Evaluation on right hand digits remain edematous and reddened, noted Adaptic adherence to tendons. Wound care we consulted regarding clarification of wound care instructions. 02/19: The patient tolerated trach collar trials for approximately 30 minutes yesterday. The patient continues on CPAP trials today. Neurology was consulted regarding repeat EEG showing several spikes possible epileptiform activity. Wound care was reconsulted regarding edematous reddened digits right hand and left forearm. 02/20: still with CPAP trials. per plastics, plan for debridement of hand tomorrow in OR. Neuro started Keppra 500mg q12h. otherwise, no acute changes. Objective Vital Signs Date Time Temp Pulse Resp B/P Pulse Ox O2 Delivery O2 Flow Rate FiO2 02/21/16 19:53 100 40 02/21/16 18:00 96 02/21/16 16:00 98.5 19 123/72 02/21/16 13:49 Mechanical Ventilator 02/21/16 10:56 5.00 Intake and Output 02/20/16 02/20/16 02/21/16 08:00 16:00 00:00 Intake Total 649 ml 840 ml 785 ml Output Total 580 ml 700 ml 850 ml Balance 69 ml 140 ml -65 ml Result Diagram: 02/20/169 02/20/169 Imaging Last Impressions Chest X-Ray 02/11/16 0600 Signed Impressions: Service Date/Time: Thursday, February 11, 2016 05:41 - CONCLUSION: Rotated study demonstrating no significant interval change. Owen Arzola MD Upper Extremity Ultrasound 01/30/16 0000 Signed Impressions: Service Date/Time: Saturday, January 30, 2016 11:18 - CONCLUSION: Limited exam without thrombus identified. Raudel Mckinney MD FACR Thoracentesis 01/28/16 0000 Signed Impressions: Service Date/Time: Thursday, January 28, 2016 12:54 - CONCLUSION: Uncomplicated CT-guided thoracentesis. Ramone Hall MD Abdomen/Pelvis CT 01/23/16 0800 Signed Impressions: Service Date/Time: Saturday, January 23, 2016 09:05 - CONCLUSION: Relative to the prior study the marked distention of the stomach is reduced. There is a persistent 5 cm left upper quadrant sub-diaphragmatic fluid collection and drain in the left upper quadrant. Patient is post splenectomy. Jejunostomy is in place and ostomy is noted in the right lower abdomen. No free fluid or free air is appreciated and there is no evidence of obstruction. Bilateral pleural effusions persists small but slightly larger on the right with left lower lobe consolidation. Jared Medina MD ADDENDUM: I have reviewed the images with respect to her request made for left subdiaphragmatic drainage of a fluid collection. No fluid collection is observed within the left upper quadrant. There is residual splenic tissue that measures 5 cm in diameter with Hounsfield units 62. The stomach fundus extends up into the subdiaphragmatic location. No subdiaphragmatic fluid collection is observed. Surgical drains are noted. Osmar Chavez Jr., MD Chest CT 01/05/16 0000 Signed Impressions: Service Date/Time: Tuesday, January 05, 2016 23:15 - CONCLUSION: 1. Persistent left lower lobar consolidation. Improved consolidative infiltrates in the right lower lung. 2. Interval increase size bilateral pleural effusions , left greater than right. Osmar Alegria MD Celiac/Hepatic Arteriogram 12/27/15 0000 Signed Impressions: Service Date/Time: December 13:41 - CONCLUSION: 1. No active GI bleed identified. Robert Mckinney MD Abdomen X-Ray 12/18/15 0000 Signed Impressions: Service Date/Time: Friday, December 18, 2015 16:05 - CONCLUSION: Feeding tube tip is at the gastric antrum. Arnaldo Elias MD Head CT 12/02/15 1013 Signed Impressions: Service Date/Time: Wednesday, December 02, 2015 11:00 - CONCLUSION: 1. No intracranial abnormality is seen. 2. Air-fluid level in the right maxillary sinus. Arnaldo Reyes MD Last 24 hours Impressions Chest X-Ray 02/05/16 0600 Signed Impressions: Service Date/Time: Friday, February 05, 2016 04:11 - CONCLUSION: Worsening/developing effusions and basilar consolidation, currently left worse than right. Arnaldo Elias MD Objective Remarks GENERAL: Middle-aged chronically critically ill, lying in bed , awake, alert, interactive. HEENT: NCAT. mucous membranes moist. NECK: [address], no active bleeding, no evidence of infection. RESPIRATORY: Normal respiratory rate. Breath sounds present bilaterally, clear without wheezing or rhonchi. CARDIOVASCULAR: Regular, tachycardic. HR 110's. No murmurs rubs or gallops. GASTROINTESTINAL: J tube in place with tube feeds running @ 40cc/hr.Ostomy with brown colored stool approx 100cc MUSCULOSKELETAL: Pitting edema 2+ bilateral feet and hands. Gauze dressing bilateral upper extremity. Multiple open wounds in the lower extremity with gauze dressing. NEURO: Awake. Alert, interactive. RASS 0, CAM -. mouthing words. 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 Miller). - Trach exchanged 8.0 Shiley with cuff on 01/19 - DuoNeb q6h and as needed - Last CT guided thoracentesis 01/27 - CXR 02/11 unchanged - Continue fluid mobilization with lasix - continue CPAP trials and trach collar trials as tolerated Leukocytosis Bandemia-resolved - re-cultured 02/07 - Bands 6->1->11->2->1 (02/16) - ID following, Dr. Becerra - WBC 18->18 today Sputum Culture 02/12 Stenotrophomonas Maltophilia Sputum Culture 02/07 Stenotrophomonas Maltophilia Blood Culture 02/07 NGTD Urine Culture 02/02 neg NIGEL - on home CPAP - Tracheostomy Hyperkalemia-resolved Hypokalemia-resolved - Patient is on Lasix daily, close monitoring of BMP - Replete electrolytes per ICU protocol - Kayexalate discontinued Hypernatremia-resolved - continue Free water flushes 200 q 8 hr - Avoiding nephrotoxins. - Monitor BMP Perforated right colon with ischemic colitis - s/p ex-lap, extended right hemicolectomy with primary ileocolic anastamosis - s/p Ex lap 01/05 for bleeding gastric ulcer - management per general surgery - Open abdominal wound-2 small open areas of incision with continued packing, Primapore dressing twice a day to abdomen per general surgery. Granulation tissue Acute protein calorie malnutrition - severe -Nutrition reconsulted, for recommendations regarding supplementation - Beneprotein - Prealbumin 14 on 01/26 - Jevity goal rate to 65/hr based on nutrition most recent recommendations @ goal, the patient is tolerating 55cc/hr, no episodes of nausea Chronic hepatitis C - s/p interferon/ribavirin years ago - Liver biopsy 04/14/08 - monitor for liver failure -02/14 Ammonia level 31 -Alert oriented responsive Gastric ulcer disease - EGD 12/26/15 showed 2 large gastric ulcers with active bleeding - status post epinephrine infusion and cauterization - To OR 01/05 with GI bleeding and hemorrhagic shock. -S/P gastrotomy with ligation of gastric ulcer, lysis of adhesions - Continue Protonix 40 g IV q12h Acute Anemia - secondary to acute blood loss - Hgb stable, will transfuse for hemoglobin less than 7 - last transfused 1 unit PRBC 02/02 - No obvious active bleeding. - Ferrous Sulfate 300mg bid Thrombocytopenia-resolved - Monitor CBC - Hep PLT ab negative on 12/03 - due to chronic liver disease Hyperglycemia of Critical Illness - Monitor blood glucose per ICU protocol - Levemir BID on hold, not clinically indicated at this time - Low-dose insulin sliding scale DC Critical illness polyneuropathy -Continue PT daily, out of bed to chair, functional maintenance of extremities 4 -- will try to stand him at some point this week, it will take a lot of ancillary support to do this Open wounds,B/L upper extremities multiple stages -Reconsult wound care 02/11 B/L upper extremities -Digits on hand reddened and edematous-wound care consulted, Plastic reconsulted: plan for OR tomorrow. Facial spasms/twitching -02/12 CT brain normal, possible left mastoiditis, ID aware -Calcium level 9.1, BMP normal -ENT -to be followed up on outpatient basis -02/14 MRI brain: no acute disease. - EEG 02/12-mouth and facial twitching noted. The discharge could be of epileptiform significant, excessive artifact study limited. -02/15 Resolution of facial twitching -EEG 02/17 moderate diffuse encephalopathy possibly may be slight increased tendency for seizure. Noted bifrontal sharps and slow sharp complex noted -Neurology reconsulted for follow-up - per neurology, started Keppra 500mg q12h. Urinary Retention: -- 02/16 Terazosin 5mg qhs. GI Prophylaxis: -- Protonix IV BID DVT Prophylaxis: - SCDs - No chemical DVT Prophylaxis, OOB to chair and daily functional maintenance of extremities x 4 ACCESS: --PIV x 2. Discuss HAND WEAVER at bedside. Level 2 Problem Qualifiers (1) Respiratory failure: Qualified Code: J96.00 - Acute respiratory failure, unspecified whether with hypoxia or hypercapnia (2) Altered mental status: Qualified Code: R41.0 - Delirium (3) Sepsis: Qualified Code: A41.9 - Sepsis, due to unspecified organism Jeyson Fernández MD Feb 21, 2016 20:30
[2016-02-22] VITALS (18 sets, daily range): BP systolic 93–114; BP diastolic 57–78; PULSE 67–113; RESP 16–23; TEMP 97.6–98.6; O2SAT 93–100
[2016-02-22] MEDS: FREE WATER G-TUBE SCH ×3 (00:02→16:12)
[2016-02-22] MEDS: FUROSEMIDE 20 MG/2 ML VIAL IV PUSH SCH ×4 (02:55→20:13)
[2016-02-22] MEDS: cefTAZidime INJ 2,000 MG in SODIUM CHLORIDE 0.9% INJ 100 ML IV SCH ×3 (02:55→21:17)
[2016-02-22] MEDS: CHLORHEXIDINE GLUCONATE 2 % 1 PACK (2 CLOTHS) TOP SCH (04:00)
[2016-02-22] MEDS: PANTOPRAZOLE SODIUM 40 MG VIAL IV PUSH SCH ×2 (05:13→16:11)
[2016-02-22] MEDS: METOPROLOL TARTRATE 25 MG TAB TUBE SCH ×4 (05:13→23:51)
[2016-02-22] MEDS: oxyCODONE HCL ORAL CONC 20 MG/ML SYRINGE PO SCH ×5 (05:13→20:14)
[2016-02-22] MEDS: FERROUS SULFATE 300 MG /5ML UDC TUBE SCH ×2 (07:59→20:13)
[2016-02-22] MEDS: POVIDONE IODINE 10% OINT 30 GM TUBE TOPICAL SCH (08:00)
[2016-02-22] MEDS: MULTIVITAMINS LIQUID 5 ML UDC TUBE SCH (08:00)
[2016-02-22] MEDS: NEOMYCIN/POLYMYXIN/BACITRACIN OINT 15 GM TUBE TOPICAL SCH ×2 (08:00→21:00)
[2016-02-22] MEDS: levETIRAcetam 500 MG/5 ML UDC PO SCH ×2 (08:00→20:13)
[2016-02-22] MEDS: CHLORHEXIDINE 0.12% (ORAL KIT) 15 ML CUP MT SCH ×2 (08:00→20:15)
[2016-02-22] MEDS: SILVER SULFADIAZINE 1% CR 400 GM JAR TOPICAL SCH (08:00)
[2016-02-22] MEDS ORDERED: PROPOFOL 200 MG/20 ML AMP IV ONE (12:00)
[2016-02-22] MEDS ORDERED: PHENYLEPH/NS 1000 MCG/10 ML SYR IV ONE (12:00)
[2016-02-22] MEDS ORDERED: LACTATED RINGER'S 1000 ML INJ 1,000 ML IV ONE (12:00)
[2016-02-22] MEDS ORDERED: ONDANSETRON HCL 4 MG/2 ML VIAL IV PUSH ONE (12:00)
--- NOTE | 2016-02-22 13:04 | HHI.PR ---
Immediate Post Op Note Procedure Date: Feb 22, 2016 Pre Op Diagnosis: (1) Wounds, multiple 1. Open wound of dorsal right hand, wrist, forearm with exposed tendon. 2. Open wounds of dorsal right middle and ring finger PIP joints with exposed tendon. 3. Open wounds of the left forearm. Post Op Diagnosis: Surgeon: Barbara Pedro MD Software Business Analyst(s): Todd Park PA-C Procedure: 1. Excisional debridement of open wound of right upper extremity with debridement of second, third, fourth, and fifth extensor tendons (20cm X 7cm). 2. Excisional debridement of open wound of the right middle finger PIP joint dorsally with debridement of extensor tendon (1cm x 1cm and 1cm X 1cm). 3. Excisional debridement of open wounds of the left forearm (8cm X 6cm and 7cm X 5cm). Complications: N/A Specimen(s) removed: N/A Anesthesia: General Drains: None Tourniquet time (min at mmHg) N/A Patient to: PACU Patient Condition: Good Nelly Park Feb 22, 2016 13:03
[2016-02-22] MEDS ORDERED: fentaNYL CITRATE 250 MCG/5 ML AMP ONE (13:20)
--- NOTE | 2016-02-22 16:57 | HHI.HCPN ---
Reason for visit a. To assist with evaluation and management of symptoms including: pain, malnutrition, wounds, AMS b. To assist medical decision maker(s) with: better understanding of current medical conditions; weighing benefits/burdens of medical treatment options; making medical treatment decisions. . (Leha Pop) Subjective/Interval History Patient seen and assessed in room 1317. Patient smiling and attempting to mouth answers to questions, remains encephalopathic. Also present patient's daughter, and Dr. Fernández. We had a lengthy about long-term goals, and concerns that the patient may not improved. The patient's daughter and agreed that if the patient declines to the point of requiring cardiopulmonary resuscitation for cardiac arrest, he would not want to live in that deconditioned state, even if he has ROSC. Patient's code status was changed to NO CODE-DNR per family request. Patient started on Keppra 500 mg 2 times daily, given evidence of tendency for seizure activity on EEG recording. Neurology continues to follow Dr. Pedro saw and evaluated the patient on 02/12/16. Patient taken to the OR today for debridement of wounds and application of Integra this morning Patient has a history of chronic pain. Probable causes of plan include multiple surgeries, invasive lines, Sandoval, ostomy, NG tube, tracheostomy, immobility, wounds, bedbound status etc. On fentanyl patch 125mcg/h q3d. PRN oxycodone and Dilaudid available. . Family/friend interactions Family meeting with his , daughter, palliative care and Dr. Fernández to clarify medical treatment goals. . (Leah Pop) Advance Directives Living Will: Never completed Health Care Surrogate: Never completed Durable Power of Hand Surgeon: Never completed (Leah Pop) Advance Directive Specifics Health Care Surrogate(s): There is no designated health care surrogate. Per [place] statutes, in the absence of written advanced directives healthcare proxy falls to the patient's , Gopi Smith. . Documented care wishes: None available , (Leah Pop) Objective Vital Signs Date Time Temp Pulse Resp B/P Pulse Ox O2 Delivery O2 Flow Rate FiO2 02/22/16 16:00 40 02/22/16 16:00 97.8 103 18 111/64 95 02/22/16 16:00 103 02/22/16 14:00 99 02/22/16 13:24 93 40 02/22/16 13:00 97.6 95 23 109/78 93 02/22/16 13:00 40 02/22/16 13:00 95 02/22/16 11:00 100 100 02/22/16 10:00 67 02/22/16 08:07 98 40 02/22/16 08:00 90 02/22/16 08:00 98.2 82 18 114/61 99 02/22/16 08:00 40 02/22/16 07:00 98 Mechanical Ventilator 40 02/22/16 06:00 90 02/22/16 06:00 40 02/22/16 06:00 98.2 81 16 93/57 98 02/22/16 04:11 98 40 02/22/16 02:00 105 02/22/16 01:10 96 40 02/22/16 00:00 98.6 102 17 100/68 97 02/22/16 00:00 40 02/22/16 00:00 103 02/21/16 22:00 103 02/21/16 20:56 15 02/21/16 20:00 98 Mechanical Ventilator 40 02/21/16 20:00 98.6 100 12 97/56 99 02/21/16 20:00 100 02/21/16 20:00 40 02/21/16 19:53 100 40 02/21/16 18:00 96 Intake & Output 02/22/16 02/22/16 07:00 19:00 Intake Total 878 ml 347 ml Output Total 1270 ml 575 ml Balance -392 ml -228 ml IV Total 200 ml 100 ml Tube Feeding 358 ml 127 ml Other 320 ml 120 ml Output Urine Total 1050 ml 500 ml Stool Total 220 ml 75 ml . Physical Exam CONSTITUTIONAL/GENERAL: This is a frail chroncially ill middle-aged male patient on T piece via trach. TUBES/LINES/DRAINS: PIV 1, ostomy, trach, Sandoval, J tube SKIN: Skin appears thin and fragile. Bilateral upper and lower wrapped, dressing clean dry and intact. HEAD: Atraumatic. Normocephalic. EYES: No injection or drainage. No sclerae icterus. ENT: Hearing appears normal. Nose without bleeding or purulent drainage. Non- blanchable redness of her left earlobe. NECK: Trachea midline. CARDIOVASCULAR: Regular rate and rhythm RESPIRATORY/CHEST: Continue CPAP trails daily. Breath sounds diminished bilaterally. GASTROINTESTINAL: Ostomy with brown colored stool. GENITOURINARY: Without palpable bladder distension. Sandoval catheter in place. MUSCULOSKELETAL: Extremities without clubbing or cyanosis. Atrophy. NEUROLOGICAL: Smiling, attempting to respond to questions by mouthing words. Remains encephalopathic. PSYCHIATRIC: No anxiety or agitation observed. . (Leah Pop) Diagnostic Tests Laboratory Laboratory Tests Test 02/20/16 03:19 White Blood Count 19.2 TH/MM3 (4.0-11.0) Red Blood Count 2.67 MIL/MM3 (4.50-5.90) Hemoglobin 7.8 GM/DL (13.0-17.0) Hematocrit 24.6 % (39.0-51.0) Mean Corpuscular Volume 92.1 FL (80.0-100.0) Mean Corpuscular Hemoglobin 29.2 PG (27.0-34.0) Mean Corpuscular Hemoglobin 31.8 % Concent (32.0-36.0) Red Cell Distribution Width 18.3 % (11.6-17.2) Platelet Count 601 TH/MM3 (150-450) Mean Platelet Volume 8.9 FL (7.0-11.0) Neutrophils (%) (Auto) 58.5 % (16.0-70.0) Lymphocytes (%) (Auto) 17.2 % (9.0-44.0) Monocytes (%) (Auto) 13.0 % (0.0-8.0) Eosinophils (%) (Auto) 10.0 % (0.0-4.0) Basophils (%) (Auto) 1.3 % (0.0-2.0) Neutrophils # (Auto) 11.2 TH/MM3 (1.8-7.7) Lymphocytes # (Auto) 3.3 TH/MM3 (1.0-4.8) Monocytes # (Auto) 2.5 TH/MM3 (0-0.9) Eosinophils # (Auto) 1.9 TH/MM3 (0-0.4) Basophils # (Auto) 0.2 TH/MM3 (0-0.2) CBC Comment AUTO DIFF Differential Comment AUTO DIFF CONFIRMED Platelet Estimate HIGH (NORMAL) Platelet Morphology Comment NORMAL (NORMAL) Sodium Level 144 MEQ/L (136-145) Potassium Level 3.9 MEQ/L (3.5-5.1) Chloride Level 108 MEQ/L (98-107) Carbon Dioxide Level 25.7 MEQ/L (21.0-32.0) Anion Gap 10 MEQ/L (5-15) Blood Urea Nitrogen 58 MG/DL (7-18) Creatinine 1.34 MG/DL (0.60-1.30) Estimat Glomerular Filtration 56 ML/MIN (>89) Rate Random Glucose 122 MG/DL (74-106) Calcium Level 9.5 MG/DL (8.5-10.1) Phosphorus Level 2.6 MG/DL (2.5-4.9) Magnesium Level 2.1 MG/DL (1.5-2.5) . (Leah Pop) Result Diagram: 02/20/169 02/20/169 Imaging Last 72 hours Impressions Renal Ultrasound 02/24/16 0000 Signed Impressions: Service Date/Time: Wednesday, February 24, 2016 19:13 - CONCLUSION: 1. Multiple calcified nonobstructing left renal calculi. The patient's known right renal calculi are not well visualized sonographically. 2. Simple cyst within the lower pole of the right kidney measuring 2.4 cm in size. 3. No hydronephrosis or solid renal mass. 4. Poor visualization of the urinary bladder due to non distension. 5. Probable sludge ball within the gallbladder measuring 4.6 x 4.0 x 2.8 cm. Foster Ferreira MD . Procedures 12/02/15: Intubated 12/02/15: NG tube placed 12/02/15: Right subclavian central line placed 12/14/15: Left IJ central line placement BEV PEG tube Ileostomy 12/28/15: Tracheostomy 12/30/15: Right subclavian central venous line placed 01/05/16: Right axillary arterial line placement 01/05/16: Right IJ central line placement 01/05/16: Bronchoscopy 01/17/16: EGD . . . 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 Probable causes of plan include multiple surgeries, invasive lines, Sandoval, ostomy, NG tube, tracheostomy , immobility, wounds, bedbound status etc. On fentanyl patch 125mcg/h q3d. PRN oxycodone and Dilaudid available. . (2) Malnutrition 0-10 Scale: Unable to quantify Comment: . (3) Wounds, multiple Comment: To OR 01/21/17 for wound debridement and application of Integra. . (4) Altered mental status 0-10 Scale: Unable to quantify (He is awake but appears "out of it". He does not attempt to respond to questions by mouthing words. Spoke with Dr. Poole regarding patient's altered mental status. CT head today showed no acute intracranial abnormalities, new opacification of the left mastoid air cells, clinical evaluation for acute left mastoiditis suggested. Ammonia level at 31. EEG pending.) Comment: Patient started on Keppra 500 mg 2 times daily, given evidence of tendency for seizure activity on EEG recording. Neurology continues to follow Pertinent Non-Medical Issues Psychosocial:Patient was born in [facility], moving to [place] at a young age. He has 2 siblings who live locally (Feroz and Janeen). 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 The patient met his current (Gopi Smith) through mutual friends and they have now been for approximately 20 years. The patient has 1 adult daughter (Kezia) from a previous relationship. She is 30 years old. Spiritual:No holiness affiliation Legal: There is no designated health care surrogate. Per [place] statutes, in the absence of written advanced directives healthcare proxy falls to the patient 's , Gopi Smith. Ethical issues impacting care: None at this time. . Important Contacts Gopi Smith, spouse: [phone] Kezia Starks, daughter: [phone] . . Prognosis Patient is a 55 year old male with a long history of chronic illnesses. PMH is significant for Hep C, NIGEL, gout, RA, HTN, chronic pain, and migraines. Patient was admitted on 12/02/15 with sepsis due to Staph Aureus hand infection and E. Coli bacteriemia. Patient has been to the OR multiple times for GI bleed. Patient has had persistent anemia/thrombocytopenia requiring multiple transfusions. S/p tracheotomy, ileostomy, BEV 2, and G- tube, patient remains critically ill with an overall poor prognosis. . Code Status: No Code Plan * NO CODE * Decision-making: The patient is currently not capacitated to participate in decisions related to medical treatment goals. There is no designated health care surrogate. Per [place] statutes, in the absence of written advanced directives healthcare proxy falls to the patient's . HCP: GOPI SMITH ( ). * Goals: GOALS REMAIN AGGRESSIVE. However, patient's daughter and agree the patient would not want to be kept alive on machines. They do not feel he is at the point where they need to consider stopping care because he has "gotten through so much are ready" * Met with patient's , daughter and Dr. Fernández. * Symptom managementpain: Patient has a history of chronic pain. Probable causes of plan include multiple surgeries, invasive lines, Sandoval, ostomy, NG tube, tracheostomy, immobility, wounds, bedbound status etc. On fentanyl patch 125mcg/h q3d. PRN Dilaudid and oxycodone available, being sparingly used. * Symptom managementwounds: To OR 01/21/17 for wound debridement and application of Integra. * Palliative care will continue to follow this patient throughout his hospitalization to establish trust, assist with symptom management and clarification of medical treatment goals. . (Leah Pop) Attestation To help prompt me to consider important information that might be impacting today's encounter and assessment, information from prior notes written by myself or my colleagues may have been "brought forward" into today's note. My signature on this note, however, is an attestation that I personally performed the exam, history, and/or decision-making noted today, and, unless otherwise indicated, the interactions with patient, family, and staff as well as the review of records all occurred today. I also attest that the listed assessment and stated plan reflect my best clinical judgment today based on the combination of historical information, prior notes, and today's exam/ interactions. When time spent is documented, it refers only to time spent today by the signer, or if indicated, combined time spent today by collaborating physician/nurse practitioner. . (Leah Pop) Collaborating MD Comments Chart reviewed. Case discussed with palliative care JOURNEYMAN PAINTER. Above JOURNEYMAN PAINTER note reviewed and I concur. . (Nikolas Guzmán MD) Leah Pop Feb 22, 2016 16:57 Nikolas Guzmán MD Apr 05, 2016 14:50
--- NOTE | 2016-02-22 19:19 | HHI.CCPN ---
Subjective Remarks/Hospital Course 55-year-old male brought by EMS with altered mental status. He has history of chronic opiate medications including methadone and morphine that he takes for pain management and hence they gave him Narcan IV which brought the GCS up to 13. The blood glucose was 74. He has open wounds from his right upper and bilateral lower extremities. He has history of hepatitis C. Last week he was pealing and eating shrimps. Bedside blood sugar was 76 in the ER. He was tachycardic in 1 teens and was intubated in the ED for airway protection. Admitted to ICU with sepsis due to Staph Aureus hand infection and E. Coli bacteriemia. Hospital course complicated by perforated ascending colon with extended right hemicolectomy, primary ileocolic anastamosis, open abdomen, septic shock, acute hypoxic and hypercarbic respiratory failure 12/19. Taken back to the OR 12/20 afternoon for washout and completion colectomy. 12/25 Hemoglobin dropped to 4.1. Noted to have bloody drainage from G-tube and dorsal ileostomy with black stool output due to 2 gastric ulcers bleeding, stomach a significant part had decreased discoloration indicating probable ischemia. s/p epi injection and cauterization. 12/27Tracheostomy placed. 01/06: Underwent exploratory laparotomy with findings of bleeding gastric ulcer which was oversewn by Dr. Verdin abdomen left open with wound VAC in place. Now closed. On trach collar occasionally alternation intermittently with a CPAP. 02/10 Tmax 100.0. The patient has been maintain on CPAP 15 over 5/24 hours without difficulty. O2 saturations greater than 92%. Plan for trach collar trials today. 02/11 Tmax 98.4. The patient was unable to begin trach collar trials yesterday. The patient became tachypnea, RR 50's on CPAP at 4:30 yesterday requiring mechanical ventilation being placed on a rate.Patient has been maintained on mechanical ventilation overnight without any respiratory distress. O2 saturation remains 9798%. No episodes of nausea last night the patient tolerated tube feeds at 50/cc, will advance to goal today. 02/12 Afebrile. This a.m., upon examination, the patient spontaneously had eyes open but was not responding to commands as previously. Noted facial twitching eye twitching specifically the right side of face. The patient was not mouthing any words. Concern for subclinical seizure activity, or elevated ammonia levels. Ammonia level drawn, CT scan obtained EEG pending. Patient also did not tolerate tube feeds overnight. 02/13. Patient has tolerated tube feeds for the last 24 hours, noted albumin level decreased slightly from 1.1-1.0. Nutrition reconsulted for possible supplementation aids. Patient underwent EEG yesterday,, inconclusive could be of epileptiform significant, study was limited due to excessive artifact. CT brain revealed possible left mastoiditis, ammonia level not elevated .Upon examination, patient continues to have facial twitching, intermittently. 02/14 Afebrile. The patient continues to tolerate tube feeds currently at 40 cc /hour, no nausea last evening. Continue noted facial twitching by staff, the patient will go undergo MRI studies today. The patient was able to tolerate CPAP trials for 12 hours yesterday, and class placed back on the vent at 6 PM. 02/15: afebrile. neuro symptoms have resolved. now talking and interactive. smiling. 02/16: afebrile. mental status back to baseline. tolerating cpap 18/5/40% today. interactive. I had a long conversation with the Sarah family today about the fact that, while we continue to make small progresses in his acute illnesses, we have made huge steps backwards in overall functioning. He is much more malnurished and deconditioned than he was on admission, and he is now starting to get opportunistic type infections. All of these point to an overall decline , and I am concerned that he may not survive to hospital discharge, but succumb to repeat medical complications from his now chronic medical diseases. I expressed that I would continue to remain aggressive as long as he wanted me to , but the family needed to start to think about very realistic goals of care, and if we continued to decline in overall functional status and deconditioning, we may consider if we have an acute decline, transitioning to a more comfort type goals. They expressed understanding of this. 02/17: No acute events overnight. Conversation with family per Dr. Chavez yesterday. Patient was placed on Hytrin yesterday. Patient is alert and responsive, mouthing words. Patient continues to tolerate CPAP. 02/18: Afebrile. The patient tolerated CPAP for 5 hours today. Evaluation on right hand digits remain edematous and reddened, noted Adaptic adherence to tendons. Wound care we consulted regarding clarification of wound care instructions. 02/19: The patient tolerated trach collar trials for approximately 30 minutes yesterday. The patient continues on CPAP trials today. Neurology was consulted regarding repeat EEG showing several spikes possible epileptiform activity. Wound care was reconsulted regarding edematous reddened digits right hand and left forearm. 02/20: still with CPAP trials. per plastics, plan for debridement of hand tomorrow in OR. Neuro started Keppra 500mg q12h. otherwise, no acute changes. 02/21: no clinical changes. does have an area of non-blanchable redness over left ear lobe. this is not painful for him. it is the side of his head that he prefers to lay on when resting. We are placing bacitracin on it and keeping pressure off of this area. I had a long family meeting with the [facility] family and palliative care. We talked about long-term goals, and some possibilities if he does not improve, but continues to have a very indolent downward decline. Both his stepdaughter and have agreed that if he were to decline to the point of needing CPR for cardiac arrest, he would not want to live in that deconditioned state, even if we were able to regain circulation. Thus, I have made the patient DNR. Otherwise, plan for OR today for hand debridement. Objective Vital Signs Date Time Temp Pulse Resp B/P Pulse Ox O2 Delivery O2 Flow Rate FiO2 02/22/16 18:00 88 02/22/16 17:06 98 40 02/22/16 16:00 97.8 18 111/64 02/22/16 07:00 Mechanical Ventilator 02/21/16 10:56 5.00 Intake and Output 02/21/16 02/21/16 02/22/16 08:00 16:00 00:00 Intake Total 705 ml 952 ml 718 ml Output Total 700 ml 625 ml 650 ml Balance 5 ml 327 ml 68 ml Result Diagram: 02/20/169 02/20/16318 Imaging Last Impressions Chest X-Ray 02/11/16 0600 Signed Impressions: Service Date/Time: Thursday, February 11, 2016 05:41 - CONCLUSION: Rotated study demonstrating no significant interval change. Owen Arzola MD Upper Extremity Ultrasound 01/30/16 0000 Signed Impressions: Service Date/Time: Saturday, January 30, 2016 11:18 - CONCLUSION: Limited exam without thrombus identified. Raudel Mckinney MD FACR Thoracentesis 01/28/16 0000 Signed Impressions: Service Date/Time: Thursday, January 28, 2016 12:54 - CONCLUSION: Uncomplicated CT-guided thoracentesis. Ramone Hall MD Abdomen/Pelvis CT 01/23/16 0800 Signed Impressions: Service Date/Time: Saturday, January 23, 2016 09:05 - CONCLUSION: Relative to the prior study the marked distention of the stomach is reduced. There is a persistent 5 cm left upper quadrant sub-diaphragmatic fluid collection and drain in the left upper quadrant. Patient is post splenectomy. Jejunostomy is in place and ostomy is noted in the right lower abdomen. No free fluid or free air is appreciated and there is no evidence of obstruction. Bilateral pleural effusions persists small but slightly larger on the right with left lower lobe consolidation. Jared Medina MD ADDENDUM: I have reviewed the images with respect to her request made for left subdiaphragmatic drainage of a fluid collection. No fluid collection is observed within the left upper quadrant. There is residual splenic tissue that measures 5 cm in diameter with Hounsfield units 62. The stomach fundus extends up into the subdiaphragmatic location. No subdiaphragmatic fluid collection is observed. Surgical drains are noted. Osmar Chavez Jr., MD Chest CT 01/05/16 0000 Signed Impressions: Service Date/Time: Tuesday, January 05, 2016 23:15 - CONCLUSION: 1. Persistent left lower lobar consolidation. Improved consolidative infiltrates in the right lower lung. 2. Interval increase size bilateral pleural effusions , left greater than right. Osmar Alegria MD Celiac/Hepatic Arteriogram 12/27/15 0000 Signed Impressions: Service Date/Time: December 13:41 - CONCLUSION: 1. No active GI bleed identified. Robert Mckinney MD Abdomen X-Ray 12/18/15 0000 Signed Impressions: Service Date/Time: Friday, December 18, 2015 16:05 - CONCLUSION: Feeding tube tip is at the gastric antrum. Arnaldo Elias MD Head CT 12/02/15 1013 Signed Impressions: Service Date/Time: Wednesday, December 02, 2015 11:00 - CONCLUSION: 1. No intracranial abnormality is seen. 2. Air-fluid level in the right maxillary sinus. Arnaldo Reyes MD Last 24 hours Impressions Chest X-Ray 02/05/16 0600 Signed Impressions: Service Date/Time: Friday, February 05, 2016 04:11 - CONCLUSION: Worsening/developing effusions and basilar consolidation, currently left worse than right. Arnaldo Elias MD Objective Remarks GENERAL: Middle-aged chronically critically ill, lying in bed , awake, alert, interactive. HEENT: NCAT. mucous membranes moist. NECK: [address], no active bleeding, no evidence of infection. RESPIRATORY: Normal respiratory rate. Breath sounds present bilaterally, clear without wheezing or rhonchi. CARDIOVASCULAR: Regular, tachycardic. HR 110's. No murmurs rubs or gallops. GASTROINTESTINAL: J tube in place with tube feeds running @ 40cc/hr.Ostomy with brown colored stool approx 100cc MUSCULOSKELETAL: Pitting edema 2+ bilateral feet and hands. Gauze dressing bilateral upper extremity. Multiple open wounds in the lower extremity with gauze dressing. NEURO: Awake. Alert, interactive. RASS 0, CAM -. mouthing words. 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 Miller). - Trach exchanged 8.0 Shiley with cuff on 01/19 - DuoNeb q6h and as needed - Last CT guided thoracentesis 01/27 - CXR 02/11 unchanged - Continue fluid mobilization with lasix - continue CPAP trials and trach collar trials as tolerated Leukocytosis Bandemia-resolved - re-cultured 02/07 - Bands 6->1->11->2->1 (02/16) - ID following, Dr. Becerra - WBC 18->18 today Sputum Culture 02/12 Stenotrophomonas Maltophilia Sputum Culture 02/07 Stenotrophomonas Maltophilia Blood Culture 02/07 NGTD Urine Culture 02/02 neg NIGEL - on home CPAP - Tracheostomy Hyperkalemia-resolved Hypokalemia-resolved - Patient is on Lasix daily, close monitoring of BMP - Replete electrolytes per ICU protocol - Kayexalate discontinued Hypernatremia-resolved - continue Free water flushes 200 q 8 hr - Avoiding nephrotoxins. - Monitor BMP Perforated right colon with ischemic colitis - s/p ex-lap, extended right hemicolectomy with primary ileocolic anastamosis - s/p Ex lap 01/05 for bleeding gastric ulcer - management per general surgery - Open abdominal wound-2 small open areas of incision with continued packing, Primapore dressing twice a day to abdomen per general surgery. Granulation tissue Acute protein calorie malnutrition - severe -Nutrition reconsulted, for recommendations regarding supplementation - Beneprotein - Prealbumin 14 on 01/26 - Jevity goal rate to 65/hr based on nutrition most recent recommendations @ goal, the patient is tolerating 55cc/hr, no episodes of nausea Chronic hepatitis C - s/p interferon/ribavirin years ago - Liver biopsy 04/14/08 - monitor for liver failure -02/14 Ammonia level 31 -Alert oriented responsive Gastric ulcer disease - EGD 12/26/15 showed 2 large gastric ulcers with active bleeding - status post epinephrine infusion and cauterization - To OR 01/05 with GI bleeding and hemorrhagic shock. -S/P gastrotomy with ligation of gastric ulcer, lysis of adhesions - Continue Protonix 40 g IV q12h Acute Anemia - secondary to acute blood loss - Hgb stable, will transfuse for hemoglobin less than 7 - last transfused 1 unit PRBC 02/02 - No obvious active bleeding. - Ferrous Sulfate 300mg bid Thrombocytopenia-resolved - Monitor CBC - Hep PLT ab negative on 12/03 - due to chronic liver disease Hyperglycemia of Critical Illness - Monitor blood glucose per ICU protocol - Levemir BID on hold, not clinically indicated at this time - Low-dose insulin sliding scale DC Critical illness polyneuropathy -Continue PT daily, out of bed to chair, functional maintenance of extremities 4 -- will try to stand him at some point this week, it will take a lot of ancillary support to do this Open wounds,B/L upper extremities multiple stages -Reconsult wound care 02/11 B/L upper extremities -Digits on hand reddened and edematous-wound care consulted, Plastic reconsulted: plan for OR today. Facial spasms/twitching -02/12 CT brain normal, possible left mastoiditis, ID aware -Calcium level 9.1, BMP normal -ENT -to be followed up on outpatient basis -02/14 MRI brain: no acute disease. - EEG 02/12-mouth and facial twitching noted. The discharge could be of epileptiform significant, excessive artifact study limited. -02/15 Resolution of facial twitching -EEG / moderate diffuse encephalopathy possibly may be slight increased tendency for seizure. Noted bifrontal sharps and slow sharp complex noted -Neurology reconsulted for follow-up - per neurology, Keppra 500mg q12h. Urinary Retention: -- 02/16 Terazosin 5mg qhs. GI Prophylaxis: -- Protonix IV BID DVT Prophylaxis: - SCDs - No chemical DVT Prophylaxis, OOB to chair and daily functional maintenance of extremities x 4 ACCESS: --PIV x 2. Discuss ULTRASOUND TECHNICIAN at bedside. Level 2 Patient is now a DNR per his wishes as expressed by his family. Problem Qualifiers (1) Respiratory failure: Qualified Code: J96.00 - Acute respiratory failure, unspecified whether with hypoxia or hypercapnia (2) Altered mental status: Qualified Code: R41.0 - Delirium (3) Sepsis: Qualified Code: A41.9 - Sepsis, due to unspecified organism Jeyson Fernández MD Feb 22, 2016 19:19
[2016-02-22] MEDS: TERAZOSIN HCL 5 MG CAP PO SCH (20:13)
[2016-02-23] VITALS (19 sets, daily range): BP systolic 101–138; BP diastolic 61–97; PULSE 99–110; RESP 13–55; TEMP 97.9–99.2; O2SAT 95–100
[2016-02-23] MEDS: FREE WATER G-TUBE SCH ×4 (00:30→21:00)
[2016-02-23] MEDS: oxyCODONE HCL ORAL CONC 20 MG/ML SYRINGE PO SCH ×7 (00:30→20:20)
[2016-02-23] MEDS: CHLORHEXIDINE GLUCONATE 2 % 1 PACK (2 CLOTHS) TOP SCH (04:00)
[2016-02-23] MEDS: cefTAZidime INJ 2,000 MG in SODIUM CHLORIDE 0.9% INJ 100 ML IV SCH ×2 (04:12→12:01)
[2016-02-23] MEDS: FUROSEMIDE 20 MG/2 ML VIAL IV PUSH SCH ×3 (04:13→16:11)
[2016-02-23 04:27] LABS: HEMATOCRIT 24.1 % (39.0-51.0); MEAN CELL VOLUME 93.5 FL (80.0-100.0); MEAN CORPUSCULAR HEMOGLOBIN 30.2 PG (27.0-34.0); MEAN CORPUSCULAR HGB CONC 32.3 % (32.0-36.0); PLATELET COUNT 484 TH/MM3 (150-450); RED BLOOD COUNT 2.58 MIL/MM3 (4.50-5.90); RED CELL DISTRIBUTION WIDTH 20.8 % (11.6-17.2); REVIEW FLAG FINAL; WHITE BLOOD COUNT 17.7 TH/MM3 (4.0-11.0)
[2016-02-23 04:52] LABS: BICARBONATE 28.6 MEQ/L (21.0-32.0); POTASSIUM 4.1 MEQ/L (3.5-5.1)
[2016-02-23] MEDS: METOPROLOL TARTRATE 25 MG TAB TUBE SCH ×3 (05:19→17:51)
[2016-02-23] MEDS: PANTOPRAZOLE SODIUM 40 MG VIAL IV PUSH SCH ×2 (05:20→17:51)
[2016-02-23] MEDS: CHLORHEXIDINE 0.12% (ORAL KIT) 15 ML CUP MT SCH ×2 (08:00→20:19)
[2016-02-23] MEDS: FERROUS SULFATE 300 MG /5ML UDC TUBE SCH ×2 (08:40→20:20)
[2016-02-23] MEDS: SILVER SULFADIAZINE 1% CR 400 GM JAR TOPICAL SCH (08:41)
[2016-02-23] MEDS: MULTIVITAMINS LIQUID 5 ML UDC TUBE SCH (08:41)
[2016-02-23] MEDS: NEOMYCIN/POLYMYXIN/BACITRACIN OINT 15 GM TUBE TOPICAL SCH ×2 (08:41→20:20)
[2016-02-23] MEDS: levETIRAcetam 500 MG/5 ML UDC PO SCH ×2 (08:41→20:20)
[2016-02-23] MEDS: POVIDONE IODINE 10% OINT 30 GM TUBE TOPICAL SCH (08:41)
[2016-02-23] MEDS: HYDROmorphone HCL PF 2 MG/ML VIAL IV PUSH PRN (14:57)
[2016-02-23] MEDS: REMOVE OLD PATCH TD SCH ×2 (17:00)
--- NOTE | 2016-02-23 17:12 | HHI.CCPN ---
Subjective Remarks/Hospital Course 55-year-old male brought by EMS with altered mental status. He has history of chronic opiate medications including methadone and morphine that he takes for pain management and hence they gave him Narcan IV which brought the GCS up to 13. The blood glucose was 74. He has open wounds from his right upper and bilateral lower extremities. He has history of hepatitis C. Last week he was pealing and eating shrimps. Bedside blood sugar was 76 in the ER. He was tachycardic in 1 teens and was intubated in the ED for airway protection. Admitted to ICU with sepsis due to Staph Aureus hand infection and E. Coli bacteriemia. Hospital course complicated by perforated ascending colon with extended right hemicolectomy, primary ileocolic anastamosis, open abdomen, septic shock, acute hypoxic and hypercarbic respiratory failure 12/19. Taken back to the OR 12/20 afternoon for washout and completion colectomy. 12/25 Hemoglobin dropped to 4.1. Noted to have bloody drainage from G-tube and dorsal ileostomy with black stool output due to 2 gastric ulcers bleeding, stomach a significant part had decreased discoloration indicating probable ischemia. s/p epi injection and cauterization. 12/27Tracheostomy placed. 01/06: Underwent exploratory laparotomy with findings of bleeding gastric ulcer which was oversewn by Dr. Verdin abdomen left open with wound VAC in place. Now closed. On trach collar occasionally alternation intermittently with a CPAP. 02/10 Tmax 100.0. The patient has been maintain on CPAP 15 over 5/24 hours without difficulty. O2 saturations greater than 92%. Plan for trach collar trials today. 02/11 Tmax 98.4. The patient was unable to begin trach collar trials yesterday. The patient became tachypnea, RR 50's on CPAP at 4:30 yesterday requiring mechanical ventilation being placed on a rate.Patient has been maintained on mechanical ventilation overnight without any respiratory distress. O2 saturation remains 9798%. No episodes of nausea last night the patient tolerated tube feeds at 50/cc, will advance to goal today. 02/12 Afebrile. This a.m., upon examination, the patient spontaneously had eyes open but was not responding to commands as previously. Noted facial twitching eye twitching specifically the right side of face. The patient was not mouthing any words. Concern for subclinical seizure activity, or elevated ammonia levels. Ammonia level drawn, CT scan obtained EEG pending. Patient also did not tolerate tube feeds overnight. 02/13. Patient has tolerated tube feeds for the last 24 hours, noted albumin level decreased slightly from 1.1-1.0. Nutrition reconsulted for possible supplementation aids. Patient underwent EEG yesterday,, inconclusive could be of epileptiform significant, study was limited due to excessive artifact. CT brain revealed possible left mastoiditis, ammonia level not elevated .Upon examination, patient continues to have facial twitching, intermittently. 02/14 Afebrile. The patient continues to tolerate tube feeds currently at 40 cc /hour, no nausea last evening. Continue noted facial twitching by staff, the patient will go undergo MRI studies today. The patient was able to tolerate CPAP trials for 12 hours yesterday, and class placed back on the vent at 6 PM. 02/15: afebrile. neuro symptoms have resolved. now talking and interactive. smiling. 02/16: afebrile. mental status back to baseline. tolerating cpap 18/5/40% today. interactive. I had a long conversation with the Sraah family today about the fact that, while we continue to make small progresses in his acute illnesses, we have made huge steps backwards in overall functioning. He is much more malnurished and deconditioned than he was on admission, and he is now starting to get opportunistic type infections. All of these point to an overall decline , and I am concerned that he may not survive to hospital discharge, but succumb to repeat medical complications from his now chronic medical diseases. I expressed that I would continue to remain aggressive as long as he wanted me to , but the family needed to start to think about very realistic goals of care, and if we continued to decline in overall functional status and deconditioning, we may consider if we have an acute decline, transitioning to a more comfort type goals. They expressed understanding of this. 02/17: No acute events overnight. Conversation with family per Dr. Chavez yesterday. Patient was placed on Hytrin yesterday. Patient is alert and responsive, mouthing words. Patient continues to tolerate CPAP. 02/18: Afebrile. The patient tolerated CPAP for 5 hours today. Evaluation on right hand digits remain edematous and reddened, noted Adaptic adherence to tendons. Wound care we consulted regarding clarification of wound care instructions. 02/19: The patient tolerated trach collar trials for approximately 30 minutes yesterday. The patient continues on CPAP trials today. Neurology was consulted regarding repeat EEG showing several spikes possible epileptiform activity. Wound care was reconsulted regarding edematous reddened digits right hand and left forearm. 02/20: still with CPAP trials. per plastics, plan for debridement of hand tomorrow in OR. Neuro started Keppra 500mg q12h. otherwise, no acute changes. 02/21: no clinical changes. does have an area of non-blanchable redness over left ear lobe. this is not painful for him. it is the side of his head that he prefers to lay on when resting. We are placing bacitracin on it and keeping pressure off of this area. I had a long family meeting with the [facility] family and palliative care. We talked about long-term goals, and some possibilities if he does not improve, but continues to have a very indolent downward decline. Both his stepdaughter and have agreed that if he were to decline to the point of needing CPR for cardiac arrest, he would not want to live in that deconditioned state, even if we were able to regain circulation. Thus, I have made the patient DNR. Otherwise, plan for OR today for hand debridement. 02/22: debridement of wounds yesterday. still doing well on CPAP, but fails t- piece for tachycardia and tachypnea. Cr bumped from 1.3 to 1.9. clinically he appears slightly dehydrated, even though he has such poor nutritional status that he remains anasarcic. Objective Vital Signs Date Time Temp Pulse Resp B/P Pulse Ox O2 Delivery O2 Flow Rate FiO2 02/23/16 16:55 50 02/23/16 16:00 110 02/23/16 16:00 97.9 20 138/94 100 02/23/16 07:00 Mechanical Ventilator 02/21/16 10:56 5.00 Intake and Output 02/22/16 02/22/16 02/23/16 08:00 16:00 00:00 Intake Total 160 ml 347 ml 717 ml Output Total 620 ml 575 ml 400 ml Balance -460 ml -228 ml 317 ml Result Diagram: 02/23/16 0332 02/23/16 0332 Imaging Last Impressions Chest X-Ray 12/26/16 0600 Signed Impressions: Service Date/Time: Thursday, February 11, 2016 05:41 - CONCLUSION: Rotated study demonstrating no significant interval change. Owen Arzola MD Upper Extremity Ultrasound 01/30/16 0000 Signed Impressions: Service Date/Time: Saturday, January 30, 2016 11:18 - CONCLUSION: Limited exam without thrombus identified. Raudel Mckinney MD FACR Thoracentesis 01/28/16 0000 Signed Impressions: Service Date/Time: Thursday, January 28, 2016 12:54 - CONCLUSION: Uncomplicated CT-guided thoracentesis. Ramone Hall MD Abdomen/Pelvis CT 01/23/16 0800 Signed Impressions: Service Date/Time: Saturday, January 23, 2016 09:05 - CONCLUSION: Relative to the prior study the marked distention of the stomach is reduced. There is a persistent 5 cm left upper quadrant sub-diaphragmatic fluid collection and drain in the left upper quadrant. Patient is post splenectomy. Jejunostomy is in place and ostomy is noted in the right lower abdomen. No free fluid or free air is appreciated and there is no evidence of obstruction. Bilateral pleural effusions persists small but slightly larger on the right with left lower lobe consolidation. Jared Medina MD ADDENDUM: I have reviewed the images with respect to her request made for left subdiaphragmatic drainage of a fluid collection. No fluid collection is observed within the left upper quadrant. There is residual splenic tissue that measures 5 cm in diameter with Hounsfield units 62. The stomach fundus extends up into the subdiaphragmatic location. No subdiaphragmatic fluid collection is observed. Surgical drains are noted. Osmar Chavez Jr., MD Chest CT 01/05/16 0000 Signed Impressions: Service Date/Time: Tuesday, January 05, 2016 23:15 - CONCLUSION: 1. Persistent left lower lobar consolidation. Improved consolidative infiltrates in the right lower lung. 2. Interval increase size bilateral pleural effusions , left greater than right. Osmar Alegria MD Celiac/Hepatic Arteriogram 12/27/15 0000 Signed Impressions: Service Date/Time: December 13:41 - CONCLUSION: 1. No active GI bleed identified. Robert Mckinney MD Abdomen X-Ray 12/18/15 0000 Signed Impressions: Service Date/Time: Friday, December 18, 2015 16:05 - CONCLUSION: Feeding tube tip is at the gastric antrum. Arnaldo Elias MD Head CT 12/02/15 1013 Signed Impressions: Service Date/Time: Wednesday, December 02, 2015 11:00 - CONCLUSION: 1. No intracranial abnormality is seen. 2. Air-fluid level in the right maxillary sinus. Arnaldo Reyes MD Last 24 hours Impressions Chest X-Ray 02/05/16 0600 Signed Impressions: Service Date/Time: Friday, February 05, 2016 04:11 - CONCLUSION: Worsening/developing effusions and basilar consolidation, currently left worse than right. Arnaldo Elias MD Objective Remarks GENERAL: Middle-aged chronically critically ill, lying in bed , awake, alert, interactive. HEENT: NCAT. mucous membranes moist. NECK: [address], no active bleeding, no evidence of infection. RESPIRATORY: Normal respiratory rate. Breath sounds present bilaterally, clear without wheezing or rhonchi. CARDIOVASCULAR: Regular, tachycardic. HR 110's. No murmurs rubs or gallops. GASTROINTESTINAL: J tube in place with tube feeds running @ 40cc/hr.Ostomy with brown colored stool approx 100cc MUSCULOSKELETAL: Pitting edema 2+ bilateral feet and hands. Gauze dressing bilateral upper extremity. Multiple open wounds in the lower extremity with gauze dressing. NEURO: Awake. Alert, interactive. RASS 0, CAM -. mouthing words. 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 Miller). - Trach exchanged 8.0 Shiley with cuff on 01/19 - DuoNeb q6h and as needed - Last CT guided thoracentesis 01/27 - CXR 02/11 unchanged - Continue fluid mobilization with lasix - continue CPAP trials and trach collar trials as tolerated. will add IPPB therapy to help recruitment. Leukocytosis Bandemia-resolved - re-cultured 02/07 - Bands 6->1->11->2->1 (02/16) - ID following, Dr. Becerra - WBC 18->18 today Sputum Culture 02/12 Stenotrophomonas Maltophilia Sputum Culture 02/07 Stenotrophomonas Maltophilia Blood Culture 02/07 NGTD Urine Culture 02/02 neg NIGEL - on home CPAP - Tracheostomy Hyperkalemia-resolved Hypokalemia-resolved - hold Lasix today. 1L LR over 7 hours. increase free water to 300cc q6h. recheck BMP - Replete electrolytes per ICU protocol - Kayexalate discontinued Hypernatremia-resolved - continue Free water flushes 200 q 8 hr - Avoiding nephrotoxins. - Monitor BMP Perforated right colon with ischemic colitis - s/p ex-lap, extended right hemicolectomy with primary ileocolic anastamosis - s/p Ex lap 01/05 for bleeding gastric ulcer - management per general surgery - Open abdominal wound-2 small open areas of incision with continued packing, Primapore dressing twice a day to abdomen per general surgery. Granulation tissue Acute protein calorie malnutrition - severe -Nutrition reconsulted, for recommendations regarding supplementation - Beneprotein - Prealbumin 14 on 01/26 - Jevity goal rate to 65/hr based on nutrition most recent recommendations @ goal, the patient is tolerating 55cc/hr, no episodes of nausea Chronic hepatitis C - s/p interferon/ribavirin years ago - Liver biopsy 04/14/08 - monitor for liver failure -02/14 Ammonia level 31 -Alert oriented responsive Gastric ulcer disease - EGD 12/26/15 showed 2 large gastric ulcers with active bleeding - status post epinephrine infusion and cauterization - To OR 01/05 with GI bleeding and hemorrhagic shock. -S/P gastrotomy with ligation of gastric ulcer, lysis of adhesions - Continue Protonix 40 g IV q12h Acute Anemia - secondary to acute blood loss - Hgb stable, will transfuse for hemoglobin less than 7 - last transfused 1 unit PRBC 02/02 - No obvious active bleeding. - Ferrous Sulfate 300mg bid Thrombocytopenia-resolved - Monitor CBC - Hep PLT ab negative on 12/03 - due to chronic liver disease Hyperglycemia of Critical Illness - Monitor blood glucose per ICU protocol - Levemir BID on hold, not clinically indicated at this time - Low-dose insulin sliding scale DC Critical illness polyneuropathy -Continue PT daily, out of bed to chair, functional maintenance of extremities 4 -- will try to stand him at some point this week, it will take a lot of ancillary support to do this Open wounds,B/L upper extremities multiple stages -Reconsult wound care 02/11 B/L upper extremities -Digits on hand reddened and edematous-wound care consulted, Plastic reconsulted: debridement 02/21. Facial spasms/twitching -02/12 CT brain normal, possible left mastoiditis, ID aware -Calcium level 9.1, BMP normal -ENT -to be followed up on outpatient basis -02/14 MRI brain: no acute disease. - EEG 02/12-mouth and facial twitching noted. The discharge could be of epileptiform significant, excessive artifact study limited. -02/15 Resolution of facial twitching -EEG 02/17 moderate diffuse encephalopathy possibly may be slight increased tendency for seizure. Noted bifrontal sharps and slow sharp complex noted -Neurology reconsulted for follow-up - per neurology, Keppra 500mg q12h. Urinary Retention: -- 02/16 Terazosin 5mg qhs. GI Prophylaxis: -- Protonix IV BID DVT Prophylaxis: - SCDs - No chemical DVT Prophylaxis, OOB to chair and daily functional maintenance of extremities x 4 ACCESS: --PIV x 2. Discuss FILTER TANK TENDER at bedside. Level 2 Patient is now a DNR per his wishes as expressed by his family. Problem Qualifiers (1) Respiratory failure: Qualified Code: J96.00 - Acute respiratory failure, unspecified whether with hypoxia or hypercapnia (2) Altered mental status: Qualified Code: R41.0 - Delirium (3) Sepsis: Qualified Code: A41.9 - Sepsis, due to unspecified organism Jeyson Fernández MD Feb 23, 2016 17:12
[2016-02-23] MEDS ORDERED: LACTATED RINGER'S 1000 ML INJ 1,000 ML IV ONE (17:15)
[2016-02-23] MEDS: fentaNYL 100 MCG/HR PATCH TD SCH (17:51)
[2016-02-23] MEDS: fentaNYL 25 MCG/HR PATCH TD SCH (17:51)
[2016-02-23] MEDS: SODIUM CHLORIDE 0.9% FLUSH 5 ML FLUSH IVF PRN (20:20)
[2016-02-23] MEDS: TERAZOSIN HCL 5 MG CAP PO SCH (20:20)
--- NOTE | 2016-02-23 22:31 | MP ---
cc: ASHLY CARTAGENA M.D. DATE OF SURGERY 02/22/2016 PREOPERATIVE DIAGNOSIS 1. Open wound of the dorsum of right hand and wrist and forearm with exposed tendon. 2. Open wound of right middle and ring finger PIP joints distally with exposed tendon. 3. Open wounds of left forearm. POSTOPERATIVE DIAGNOSIS 1. Open wound of the dorsum of right hand and wrist and forearm with exposed tendon. 2. Open wound of right middle and ring finger PIP joints distally with exposed tendon. 3. Open wounds of left forearm. PROCEDURE 1. Excisional debridement of open wound of right upper extremity with debridement of second, third, fourth and fifth extensor tendons, 20 cm x 7 cm. 2. Excisional debridement of open wound of the right middle finger PIP joint dorsally with debridement of the extensor tendons 1 cm x 1 cm each. 3. Excisional debridement of open wounds of the left forearm, 8 cm x 6 cm and 7 cm x 5 cm. ANESTHESIA General. SURGEON Ashly Cartagena MD CURRICULUM COORDINATOR Todd Park PA-C INDICATIONS A 55-year-old male hospitalized since early November with necrosis of wounds. Initially, he was on pressors. He had necrosis, not only of his upper extremities, but he also had some problems with internal organs. The patient has been stabilized and the wounds are healing but there was significant amount of necrotic material on the right hand. This was the extensor tendons which were involved in the initial insult to his right upper extremity from the disease process. In addition, the patient had wounds of his left forearm which left him with eschars. Findings at the completion of the procedure, all the necrotic material had been removed down to good healthy, well-perfused tissue. OPERATIVE TIME Approximately 1 hour. PROCEDURE The patient was seen preoperatively where the sites and side were identified. The patient was taken to the operating room, placed in the supine position. His identity was checked against the arm band and the consent form. Site and side confirmed, time-out called prior to beginning the procedure. Both upper extremities were prepped with Hibiclens and draped in the usual sterile fashion. Attention was first turned to the right upper extremity where using a versa jet the necrotic material of the extensor tendons of his right hand were removed. This brought the tissue down to a health base which apparently had granulated in. The extensor tendon to the fifth finger though did appear to be adequately perfused. Bleeding was halted with bipolar cautery. Attention then turned to the PIP joints of the third and fourth fingers. The versa jet was used to debride down to the living tissue which apparently was the joint, the extensor tendons were completely gone. Once this was completed the areas were copiously irrigated with saline, covered with Adaptic and Mepilex AG, 4x4s, ABD pads and bias hand wrap. Attention was then turned to the left upper extremity where the wounds were sharply debrided and excised and discarded. The versa jet was then used to debride the base down to healthy tissue. The subcutaneous tissue appeared to be completely necrotic but the base did appear to be adequately perfused. Once we cut down to good bleeding tissue the area was copiously irrigated with saline. Small vessels were cauterized with bipolar cautery. It was dressed with Adaptic, Mepilex AG, 4x4s and bias hand wrap. The patient was then taken from the operating room back to the Intensive Care Unit for postoperative care. MD BYRON Campos/RACHEL /1:09 PM /10:09 PM MTDJamia
[2016-02-24] VITALS (18 sets, daily range): BP systolic 109; BP diastolic 64; PULSE 92–108; RESP 20; TEMP 98.7; O2SAT 91–100
[2016-02-24] MEDS: METOPROLOL TARTRATE 25 MG TAB TUBE SCH ×4 (00:37→17:06)
[2016-02-24] MEDS: cefTAZidime INJ 2,000 MG in SODIUM CHLORIDE 0.9% INJ 100 ML IV SCH ×2 (00:37→11:17)
[2016-02-24] MEDS: oxyCODONE HCL ORAL CONC 20 MG/ML SYRINGE PO SCH ×6 (00:37→20:00)
[2016-02-24] MEDS: FREE WATER G-TUBE SCH ×4 (03:00→20:01)
[2016-02-24] MEDS: CHLORHEXIDINE GLUCONATE 2 % 1 PACK (2 CLOTHS) TOP SCH (04:00)
[2016-02-24 04:48] LABS: BICARBONATE 29.9 MEQ/L (21.0-32.0); POTASSIUM 4.4 MEQ/L (3.5-5.1)
[2016-02-24] MEDS: HYDROmorphone HCL PF 2 MG/ML VIAL IV PUSH PRN ×2 (05:44→15:50)
[2016-02-24] MEDS: PANTOPRAZOLE SODIUM 40 MG VIAL IV PUSH SCH ×2 (05:45→17:06)
[2016-02-24] MEDS: CHLORHEXIDINE 0.12% (ORAL KIT) 15 ML CUP MT SCH ×2 (08:00→19:59)
[2016-02-24] MEDS: SILVER SULFADIAZINE 1% CR 400 GM JAR TOPICAL SCH (09:00)
[2016-02-24] MEDS: POVIDONE IODINE 10% OINT 30 GM TUBE TOPICAL SCH (09:00)
[2016-02-24] MEDS: MULTIVITAMINS LIQUID 5 ML UDC TUBE SCH ×2 (09:00→12:55)
[2016-02-24] MEDS: NEOMYCIN/POLYMYXIN/BACITRACIN OINT 15 GM TUBE TOPICAL SCH ×2 (09:00→20:01)
[2016-02-24] MEDS: levETIRAcetam 500 MG/5 ML UDC PO SCH ×2 (09:14→20:00)
[2016-02-24] MEDS: FERROUS SULFATE 300 MG /5ML UDC TUBE SCH ×2 (09:14→20:00)
[2016-02-24] MEDS ORDERED: LACTATED RINGER'S 1000 ML INJ 1,000 ML IV SCH (10:00)
[2016-02-24 17:17] LABS: BACTERIA, URINE RARE /hpf; BLOOD, URINE SMALL (NEG); CALCIUM OXALATE CRYSTALS,URINE RARE /hpf; GLUCOSE,URINE NEG (NEG); HYALINE CAST, URINE 1 /lpf (RARE); KETONE, URINE NEG (NEG); MUCUS URINE FEW /lpf (OCC); NITRITE,URINE NEG (NEG); SQUAMOUS EPITHELIAL CELL URINE 2 /hpf (0-5); URINE COLOR YELLOW (YELLW/STRAW)
[2016-02-24 17:18] LABS: COMMENT2 (UR) CATH
[2016-02-24 17:30] LABS: BICARBONATE 26.8 MEQ/L (21.0-32.0); POTASSIUM 4.8 MEQ/L (3.5-5.1)
[2016-02-24] MEDS: TERAZOSIN HCL 5 MG CAP PO SCH (20:00)
--- NOTE | 2016-02-24 21:34 | RADRPT ---
EXAM DATE/TIME: 02/24/2016 19:13 [facility] COMPARISON: CT ABDOMEN & PELVIS W/O CONTRAST, January 23, 2016, 9:05. INDICATIONS : Abnormal labs. MEDICAL HISTORY : Hypertension. Hernia, hiatal. Arthritis. Gout. Sleep apnea. Melena. Osteopenia. C-Diff. SURGICAL HISTORY : Tonsillectomy. Splenectomy. Inguinal hernia repair. Back surgery. ENCOUNTER: Initial ACUITY: 1 day PAIN SCORE: Nonresponsive. LOCATION: Bilateral flank MEASUREMENTS: RIGHT KIDNEY: 10.6 x 6.3 x 5.5 cm LEFT KIDNEY: 12.4 x 6.1 x 7.2 cm FINDINGS: There are multiple echogenic foci within the left kidney consistent with the patient's known nonobstr ucting left renal calculi. The known right renal calculi are not well visualized sonographically. T here is a simple cyst within the lower pole of the right kidney measuring 2.2 x 2.4 x 2.2 cm. There is no hydronephrosis on either side. A Sandoval catheter is noted within the nondistended urinary bladd er which limits evaluation of the urinary bladder. There is evidence of a probable sludge ball withi n the gallbladder lumen. This measures 4.6 x 4.0 x 2.8 cm. CONCLUSION: 1. Multiple calcified nonobstructing left renal calculi. The patient's known right renal calculi ar e not well visualized sonographically. 2. Simple cyst within the lower pole of the right kidney measuring 2.4 cm in size. 3. No hydronephrosis or solid renal mass. 4. Poor visualization of the urinary bladder due to non distension. 5. Probable sludge ball within the gallbladder measuring 4.6 x 4.0 x 2.8 cm. Foster Ferreira MD on February 24, 2016 at 21:24 Board Certified Radiologist. This report was verified electronically.
--- NOTE | 2016-02-24 23:00 | HHI.CCPN ---
Subjective Remarks/Hospital Course 55-year-old male brought by EMS with altered mental status. He has history of chronic opiate medications including methadone and morphine that he takes for pain management and hence they gave him Narcan IV which brought the GCS up to 13. The blood glucose was 74. He has open wounds from his right upper and bilateral lower extremities. He has history of hepatitis C. Last week he was pealing and eating shrimps. Bedside blood sugar was 76 in the ER. He was tachycardic in 1 teens and was intubated in the ED for airway protection. Admitted to ICU with sepsis due to Staph Aureus hand infection and E. Coli bacteriemia. Hospital course complicated by perforated ascending colon with extended right hemicolectomy, primary ileocolic anastamosis, open abdomen, septic shock, acute hypoxic and hypercarbic respiratory failure 12/19. Taken back to the OR 12/20 afternoon for washout and completion colectomy. 12/25 Hemoglobin dropped to 4.1. Noted to have bloody drainage from G-tube and dorsal ileostomy with black stool output due to 2 gastric ulcers bleeding, stomach a significant part had decreased discoloration indicating probable ischemia. s/p epi injection and cauterization. 12/27Tracheostomy placed. 01/06: Underwent exploratory laparotomy with findings of bleeding gastric ulcer which was oversewn by Dr. Verdin abdomen left open with wound VAC in place. Now closed. On trach collar occasionally alternation intermittently with a CPAP. 02/10 Tmax 100.0. The patient has been maintain on CPAP 15 over 5/24 hours without difficulty. O2 saturations greater than 92%. Plan for trach collar trials today. 02/11 Tmax 98.4. The patient was unable to begin trach collar trials yesterday. The patient became tachypnea, RR 50's on CPAP at 4:30 yesterday requiring mechanical ventilation being placed on a rate.Patient has been maintained on mechanical ventilation overnight without any respiratory distress. O2 saturation remains 9798%. No episodes of nausea last night the patient tolerated tube feeds at 50/cc, will advance to goal today. 02/12 Afebrile. This a.m., upon examination, the patient spontaneously had eyes open but was not responding to commands as previously. Noted facial twitching eye twitching specifically the right side of face. The patient was not mouthing any words. Concern for subclinical seizure activity, or elevated ammonia levels. Ammonia level drawn, CT scan obtained EEG pending. Patient also did not tolerate tube feeds overnight. 02/13. Patient has tolerated tube feeds for the last 24 hours, noted albumin level decreased slightly from 1.1-1.0. Nutrition reconsulted for possible supplementation aids. Patient underwent EEG yesterday,, inconclusive could be of epileptiform significant, study was limited due to excessive artifact. CT brain revealed possible left mastoiditis, ammonia level not elevated .Upon examination, patient continues to have facial twitching, intermittently. 02/14 Afebrile. The patient continues to tolerate tube feeds currently at 40 cc /hour, no nausea last evening. Continue noted facial twitching by staff, the patient will go undergo MRI studies today. The patient was able to tolerate CPAP trials for 12 hours yesterday, and class placed back on the vent at 6 PM. 02/15: afebrile. neuro symptoms have resolved. now talking and interactive. smiling. 02/16: afebrile. mental status back to baseline. tolerating cpap 18/5/40% today. interactive. I had a long conversation with the Sarah family today about the fact that, while we continue to make small progresses in his acute illnesses, we have made huge steps backwards in overall functioning. He is much more malnurished and deconditioned than he was on admission, and he is now starting to get opportunistic type infections. All of these point to an overall decline , and I am concerned that he may not survive to hospital discharge, but succumb to repeat medical complications from his now chronic medical diseases. I expressed that I would continue to remain aggressive as long as he wanted me to , but the family needed to start to think about very realistic goals of care, and if we continued to decline in overall functional status and deconditioning, we may consider if we have an acute decline, transitioning to a more comfort type goals. They expressed understanding of this. 02/17: No acute events overnight. Conversation with family per Dr. Chavez yesterday. Patient was placed on Hytrin yesterday. Patient is alert and responsive, mouthing words. Patient continues to tolerate CPAP. 02/18: Afebrile. The patient tolerated CPAP for 5 hours today. Evaluation on right hand digits remain edematous and reddened, noted Adaptic adherence to tendons. Wound care we consulted regarding clarification of wound care instructions. 02/19: The patient tolerated trach collar trials for approximately 30 minutes yesterday. The patient continues on CPAP trials today. Neurology was consulted regarding repeat EEG showing several spikes possible epileptiform activity. Wound care was reconsulted regarding edematous reddened digits right hand and left forearm. 02/20: still with CPAP trials. per plastics, plan for debridement of hand tomorrow in OR. Neuro started Keppra 500mg q12h. otherwise, no acute changes. 02/21: no clinical changes. does have an area of non-blanchable redness over left ear lobe. this is not painful for him. it is the side of his head that he prefers to lay on when resting. We are placing bacitracin on it and keeping pressure off of this area. I had a long family meeting with the [facility] family and palliative care. We talked about long-term goals, and some possibilities if he does not improve, but continues to have a very indolent downward decline. Both his stepdaughter and have agreed that if he were to decline to the point of needing CPR for cardiac arrest, he would not want to live in that deconditioned state, even if we were able to regain circulation. Thus, I have made the patient DNR. Otherwise, plan for OR today for hand debridement. 02/22: debridement of wounds yesterday. still doing well on CPAP, but fails t- piece for tachycardia and tachypnea. Cr bumped from 1.3 to 1.9. clinically he appears slightly dehydrated, even though he has such poor nutritional status that he remains anasarcic. 02/23: no changes clinically. OOB to chair. tolerated SBT all night last night, but tired out today and required rate on vent given fatigue. Cr continues to rise despite gentle hydration. 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 Objective Vital Signs Date Time Temp Pulse Resp B/P Pulse Ox O2 Delivery O2 Flow Rate FiO2 02/24/16 22:37 100 50 02/24/16 22:00 104 02/24/16 20:00 Mechanical Ventilator 02/24/16 00:00 98.7 20 109/64 02/21/16 10:56 5.00 Intake and Output 02/23/16 02/23/16 02/24/16 08:00 16:00 00:00 Intake Total 666 ml 800 ml 1314 ml Output Total 350 ml 550 ml 270 ml Balance 316 ml 250 ml 1044 ml Result Diagram: 02/23/16 0332 02/24/16 1701 Imaging Last Impressions Chest X-Ray 02/11/16 0600 Signed Impressions: Service Date/Time: Thursday, February 11, 2016 05:41 - CONCLUSION: Rotated study demonstrating no significant interval change. Owen Arzola MD Upper Extremity Ultrasound 01/30/16 0000 Signed Impressions: Service Date/Time: Saturday, January 30, 2016 11:18 - CONCLUSION: Limited exam without thrombus identified. Raudel Mckinney MD FACR Thoracentesis 01/28/16 0000 Signed Impressions: Service Date/Time: Thursday, January 28, 2016 12:54 - CONCLUSION: Uncomplicated CT-guided thoracentesis. Ramone Hall MD Abdomen/Pelvis CT 01/23/16 0800 Signed Impressions: Service Date/Time: Saturday, January 23, 2016 09:05 - CONCLUSION: Relative to the prior study the marked distention of the stomach is reduced. There is a persistent 5 cm left upper quadrant sub-diaphragmatic fluid collection and drain in the left upper quadrant. Patient is post splenectomy. Jejunostomy is in place and ostomy is noted in the right lower abdomen. No free fluid or free air is appreciated and there is no evidence of obstruction. Bilateral pleural effusions persists small but slightly larger on the right with left lower lobe consolidation. Jared Medina MD ADDENDUM: I have reviewed the images with respect to her request made for left subdiaphragmatic drainage of a fluid collection. No fluid collection is observed within the left upper quadrant. There is residual splenic tissue that measures 5 cm in diameter with Hounsfield units 62. The stomach fundus extends up into the subdiaphragmatic location. No subdiaphragmatic fluid collection is observed. Surgical drains are noted. Osmar Chavez Jr., MD Chest CT 01/05/16 0000 Signed Impressions: Service Date/Time: Tuesday, January 05, 2016 23:15 - CONCLUSION: 1. Persistent left lower lobar consolidation. Improved consolidative infiltrates in the right lower lung. 2. Interval increase size bilateral pleural effusions , left greater than right. Osmar Alegria MD Celiac/Hepatic Arteriogram 12/27/15 0000 Signed Impressions: Service Date/Time: December 13:41 - CONCLUSION: 1. No active GI bleed identified. Robert Mckinney MD Abdomen X-Ray 12/18/15 0000 Signed Impressions: Service Date/Time: Friday, December 18, 2015 16:05 - CONCLUSION: Feeding tube tip is at the gastric antrum. Arnaldo Elias MD Head CT 12/02/15 1013 Signed Impressions: Service Date/Time: Wednesday, December 02, 2015 11:00 - CONCLUSION: 1. No intracranial abnormality is seen. 2. Air-fluid level in the right maxillary sinus. Arnaldo Reyes MD Last 24 hours Impressions Chest X-Ray 02/05/16 0600 Signed Impressions: Service Date/Time: Friday, February 05, 2016 04:11 - CONCLUSION: Worsening/developing effusions and basilar consolidation, currently left worse than right. Arnaldo Elias MD Objective Remarks GENERAL: Middle-aged chronically critically ill, lying in bed , awake, alert, interactive. HEENT: NCAT. mucous membranes moist. NECK: [address], no active bleeding, no evidence of infection. RESPIRATORY: Normal respiratory rate. Breath sounds present bilaterally, clear without wheezing or rhonchi. CARDIOVASCULAR: Regular, tachycardic. HR 110's. No murmurs rubs or gallops. GASTROINTESTINAL: J tube in place with tube feeds running @ 40cc/hr.Ostomy with brown colored stool approx 100cc MUSCULOSKELETAL: Pitting edema 2+ bilateral feet and hands. Gauze dressing bilateral upper extremity. Multiple open wounds in the lower extremity with gauze dressing. NEURO: Awake. Alert, interactive. RASS 0, CAM -. mouthing words. 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 Miller). - Trach exchanged 8.0 Shiley with cuff on 01/19 - DuoNeb q6h and as needed - Last CT guided thoracentesis 01/27 - CXR 02/11 unchanged - holding lasix. - continue CPAP trials and trach collar trials as tolerated. continue IPPB therapy to help recruitment. Leukocytosis Bandemia-resolved - re-cultured 02/07 - Bands 6->1->11->2->1 (02/16) - ID following, Dr. Becerra - WBC 18->18 today Sputum Culture 02/12 Stenotrophomonas Maltophilia Sputum Culture 02/07 Stenotrophomonas Maltophilia Blood Culture 02/07 NGTD Urine Culture 02/02 neg NIGEL - on home CPAP - Tracheostomy Hyperkalemia-resolved Hypokalemia-resolved - hold Lasix today. continue free water to 300cc q6h. AM BMP. I am concerned about this acute kidney injury. we will not give additional fluids at this time , as the patient appears more clinically euvolemic. I will re-assess in the AM. - Replete electrolytes per ICU protocol - Kayexalate discontinued Hypernatremia-resolved - continue Free water flushes 300 q 6 hr - Avoiding nephrotoxins. - Monitor BMP Perforated right colon with ischemic colitis - s/p ex-lap, extended right hemicolectomy with primary ileocolic anastamosis - s/p Ex lap 01/05 for bleeding gastric ulcer - management per general surgery - Open abdominal wound-2 small open areas of incision with continued packing, Primapore dressing twice a day to abdomen per general surgery. Granulation tissue Acute protein calorie malnutrition - severe -Nutrition reconsulted, for recommendations regarding supplementation - Beneprotein - Prealbumin 14 on 01/26 - Jevity goal rate to 65/hr based on nutrition most recent recommendations @ goal, the patient is tolerating 55cc/hr, no episodes of nausea Chronic hepatitis C - s/p interferon/ribavirin years ago - Liver biopsy 04/14/08 - monitor for liver failure -02/14 Ammonia level 31 -Alert oriented responsive Gastric ulcer disease - EGD 12/26/15 showed 2 large gastric ulcers with active bleeding - status post epinephrine infusion and cauterization - To OR 01/05 with GI bleeding and hemorrhagic shock. -S/P gastrotomy with ligation of gastric ulcer, lysis of adhesions - Continue Protonix 40 g IV q12h Acute Anemia - secondary to acute blood loss - Hgb stable, will transfuse for hemoglobin less than 7 - last transfused 1 unit PRBC 02/02 - No obvious active bleeding. - Ferrous Sulfate 300mg bid Thrombocytopenia-resolved - Monitor CBC - Hep PLT ab negative on 12/03 - due to chronic liver disease Hyperglycemia of Critical Illness - Monitor blood glucose per ICU protocol - Levemir BID on hold, not clinically indicated at this time - Low-dose insulin sliding scale DC Critical illness polyneuropathy -Continue PT daily, out of bed to chair, functional maintenance of extremities 4 -- will try to stand him at some point this week, it will take a lot of ancillary support to do this Open wounds,B/L upper extremities multiple stages -Reconsult wound care 02/11 B/L upper extremities -Digits on hand reddened and edematous-wound care consulted, Plastic reconsulted: debridement 02/21. Facial spasms/twitching -02/12 CT brain normal, possible left mastoiditis, ID aware -Calcium level 9.1, BMP normal -ENT -to be followed up on outpatient basis -02/14 MRI brain: no acute disease. - EEG 02/12-mouth and facial twitching noted. The discharge could be of epileptiform significant, excessive artifact study limited. -02/15 Resolution of facial twitching -EEG 02/17 moderate diffuse encephalopathy possibly may be slight increased tendency for seizure. Noted bifrontal sharps and slow sharp complex noted -Neurology reconsulted for follow-up - per neurology, Keppra 500mg q12h. Urinary Retention: -- 02/16 Terazosin 5mg qhs. GI Prophylaxis: -- Protonix IV BID DVT Prophylaxis: - SCDs - No chemical DVT Prophylaxis, OOB to chair and daily functional maintenance of extremities x 4 ACCESS: --PIV x 2. Discuss [employer] at bedside. Level 2 Patient is now a DNR per his wishes as expressed by his family. Problem Qualifiers (1) Respiratory failure: Qualified Code: J96.00 - Acute respiratory failure, unspecified whether with hypoxia or hypercapnia (2) Altered mental status: Qualified Code: R41.0 - Delirium (3) Sepsis: Qualified Code: A41.9 - Sepsis, due to unspecified organism Jeyson Fernández MD Feb 24, 2016 23:00
[2016-02-25] VITALS (19 sets, daily range): BP systolic 104–148; BP diastolic 59–96; PULSE 86–108; RESP 10–19; TEMP 97.6–98.7; O2SAT 94–99
[2016-02-25] MEDS: cefTAZidime INJ 2,000 MG in SODIUM CHLORIDE 0.9% INJ 100 ML IV SCH ×2 (00:06→14:01)
[2016-02-25] MEDS: oxyCODONE HCL ORAL CONC 20 MG/ML SYRINGE PO SCH ×6 (00:06→20:21)
[2016-02-25] MEDS: METOPROLOL TARTRATE 25 MG TAB TUBE SCH ×4 (00:06→17:15)
[2016-02-25] MEDS: RESP: ALBUTEROL 2.5 MG/IPRATROPIUM 0.5 MG NEB (PRN) NEB (03:46)
[2016-02-25] MEDS: CHLORHEXIDINE GLUCONATE 2 % 1 PACK (2 CLOTHS) TOP SCH (04:00)
[2016-02-25 04:43] LABS: BICARBONATE 27.4 MEQ/L (21.0-32.0); POTASSIUM 5.1 MEQ/L (3.5-5.1)
[2016-02-25] MEDS: PANTOPRAZOLE SODIUM 40 MG VIAL IV PUSH SCH ×2 (05:46→17:15)
[2016-02-25] MEDS: FREE WATER G-TUBE SCH ×4 (05:48→20:21)
[2016-02-25] MEDS: FERROUS SULFATE 300 MG /5ML UDC TUBE SCH ×2 (08:37→20:21)
[2016-02-25] MEDS: levETIRAcetam 500 MG/5 ML UDC PO SCH ×2 (08:37→20:21)
[2016-02-25] MEDS: MULTIVITAMINS LIQUID 5 ML UDC TUBE SCH (08:37)
[2016-02-25] MEDS: SILVER SULFADIAZINE 1% CR 400 GM JAR TOPICAL SCH (08:38)
[2016-02-25] MEDS: NEOMYCIN/POLYMYXIN/BACITRACIN OINT 15 GM TUBE TOPICAL SCH ×2 (08:38→20:21)
[2016-02-25] MEDS: POVIDONE IODINE 10% OINT 30 GM TUBE TOPICAL SCH (08:38)
[2016-02-25] MEDS: CHLORHEXIDINE 0.12% (ORAL KIT) 15 ML CUP MT SCH ×2 (08:38→20:21)
--- NOTE | 2016-02-25 09:36 | HHI.CCPN ---
Subjective Remarks/Hospital Course 55-year-old male brought by EMS with altered mental status. He has history of chronic opiate medications including methadone and morphine that he takes for pain management and hence they gave him Narcan IV which brought the GCS up to 13. The blood glucose was 74. He has open wounds from his right upper and bilateral lower extremities. He has history of hepatitis C. Last week he was pealing and eating shrimps. Bedside blood sugar was 76 in the ER. He was tachycardic in 1 teens and was intubated in the ED for airway protection. Admitted to ICU with sepsis due to Staph Aureus hand infection and E. Coli bacteriemia. Hospital course complicated by perforated ascending colon with extended right hemicolectomy, primary ileocolic anastamosis, open abdomen, septic shock, acute hypoxic and hypercarbic respiratory failure 12/19. Taken back to the OR 12/20 afternoon for washout and completion colectomy. 12/25 Hemoglobin dropped to 4.1. Noted to have bloody drainage from G-tube and dorsal ileostomy with black stool output due to 2 gastric ulcers bleeding, stomach a significant part had decreased discoloration indicating probable ischemia. s/p epi injection and cauterization. 12/27Tracheostomy placed. 01/06: Underwent exploratory laparotomy with findings of bleeding gastric ulcer which was oversewn by Dr. Verdin abdomen left open with wound VAC in place. Now closed. On trach collar occasionally alternation intermittently with a CPAP. 02/10 Tmax 100.0. The patient has been maintain on CPAP 15 over 5/24 hours without difficulty. O2 saturations greater than 92%. Plan for trach collar trials today. 02/11 Tmax 98.4. The patient was unable to begin trach collar trials yesterday. The patient became tachypnea, RR 50's on CPAP at 4:30 yesterday requiring mechanical ventilation being placed on a rate.Patient has been maintained on mechanical ventilation overnight without any respiratory distress. O2 saturation remains 9798%. No episodes of nausea last night the patient tolerated tube feeds at 50/cc, will advance to goal today. 02/12 Afebrile. This a.m., upon examination, the patient spontaneously had eyes open but was not responding to commands as previously. Noted facial twitching eye twitching specifically the right side of face. The patient was not mouthing any words. Concern for subclinical seizure activity, or elevated ammonia levels. Ammonia level drawn, CT scan obtained EEG pending. Patient also did not tolerate tube feeds overnight. 02/13. Patient has tolerated tube feeds for the last 24 hours, noted albumin level decreased slightly from 1.1-1.0. Nutrition reconsulted for possible supplementation aids. Patient underwent EEG yesterday,, inconclusive could be of epileptiform significant, study was limited due to excessive artifact. CT brain revealed possible left mastoiditis, ammonia level not elevated .Upon examination, patient continues to have facial twitching, intermittently. 02/14 Afebrile. The patient continues to tolerate tube feeds currently at 40 cc /hour, no nausea last evening. Continue noted facial twitching by staff, the patient will go undergo MRI studies today. The patient was able to tolerate CPAP trials for 12 hours yesterday, and class placed back on the vent at 6 PM. 02/15: afebrile. neuro symptoms have resolved. now talking and interactive. smiling. 02/16: afebrile. mental status back to baseline. tolerating cpap 18/5/40% today. interactive. I had a long conversation with the Sarah family today about the fact that, while we continue to make small progresses in his acute illnesses, we have made huge steps backwards in overall functioning. He is much more malnurished and deconditioned than he was on admission, and he is now starting to get opportunistic type infections. All of these point to an overall decline , and I am concerned that he may not survive to hospital discharge, but succumb to repeat medical complications from his now chronic medical diseases. I expressed that I would continue to remain aggressive as long as he wanted me to , but the family needed to start to think about very realistic goals of care, and if we continued to decline in overall functional status and deconditioning, we may consider if we have an acute decline, transitioning to a more comfort type goals. They expressed understanding of this. 02/17: No acute events overnight. Conversation with family per Dr. Chavez yesterday. Patient was placed on Hytrin yesterday. Patient is alert and responsive, mouthing words. Patient continues to tolerate CPAP. 02/18: Afebrile. The patient tolerated CPAP for 5 hours today. Evaluation on right hand digits remain edematous and reddened, noted Adaptic adherence to tendons. Wound care we consulted regarding clarification of wound care instructions. 02/19: The patient tolerated trach collar trials for approximately 30 minutes yesterday. The patient continues on CPAP trials today. Neurology was consulted regarding repeat EEG showing several spikes possible epileptiform activity. Wound care was reconsulted regarding edematous reddened digits right hand and left forearm. 02/20: still with CPAP trials. per plastics, plan for debridement of hand tomorrow in OR. Neuro started Keppra 500mg q12h. otherwise, no acute changes. 02/21: no clinical changes. does have an area of non-blanchable redness over left ear lobe. this is not painful for him. it is the side of his head that he prefers to lay on when resting. We are placing bacitracin on it and keeping pressure off of this area. I had a long family meeting with the [facility] family and palliative care. We talked about long-term goals, and some possibilities if he does not improve, but continues to have a very indolent downward decline. Both his stepdaughter and have agreed that if he were to decline to the point of needing CPR for cardiac arrest, he would not want to live in that deconditioned state, even if we were able to regain circulation. Thus, I have made the patient DNR. Otherwise, plan for OR today for hand debridement. 02/22: debridement of wounds yesterday. still doing well on CPAP, but fails t- piece for tachycardia and tachypnea. Cr bumped from 1.3 to 1.9. clinically he appears slightly dehydrated, even though he has such poor nutritional status that he remains anasarcic. 02/23: no changes clinically. OOB to chair. tolerated SBT all night last night, but tired out today and required rate on vent given fatigue. Cr continues to rise despite gentle hydration. 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 02/24: The patient failed trach collar trials yesterday. CPAP initiated this morning. Patient's urine output unchanged, with a liter of LR bolus yesterday. Creatinine slightly increased today. Objective Vital Signs Date Time Temp Pulse Resp B/P Pulse Ox O2 Delivery O2 Flow Rate FiO2 02/25/16 07:16 99 40 02/25/16 06:00 94 02/25/16 04:00 97.7 16 108/63 02/24/16 20:00 Mechanical Ventilator 02/21/16 10:56 5.00 Intake and Output 02/24/16 02/24/16 02/25/16 08:00 16:00 00:00 Intake Total 1349 ml 1446 ml 1083 ml Output Total 330 ml 350 ml 300 ml Balance 1019 ml 1096 ml 783 ml Result Diagram: 02/23/16 0332 02/25/16 0342 Imaging Last Impressions Chest X-Ray 02/11/16 0600 Signed Impressions: Service Date/Time: Thursday, February 11, 2016 05:41 - CONCLUSION: Rotated study demonstrating no significant interval change. Owen Arzola MD Upper Extremity Ultrasound 01/30/16 0000 Signed Impressions: Service Date/Time: Saturday, January 30, 2016 11:18 - CONCLUSION: Limited exam without thrombus identified. Raudel Mckinney MD FACR Thoracentesis 01/28/16 0000 Signed Impressions: Service Date/Time: Thursday, January 28, 2016 12:54 - CONCLUSION: Uncomplicated CT-guided thoracentesis. Ramone Hall MD Abdomen/Pelvis CT 01/23/16 0800 Signed Impressions: Service Date/Time: Saturday, January 23, 2016 09:05 - CONCLUSION: Relative to the prior study the marked distention of the stomach is reduced. There is a persistent 5 cm left upper quadrant sub-diaphragmatic fluid collection and drain in the left upper quadrant. Patient is post splenectomy. Jejunostomy is in place and ostomy is noted in the right lower abdomen. No free fluid or free air is appreciated and there is no evidence of obstruction. Bilateral pleural effusions persists small but slightly larger on the right with left lower lobe consolidation. Jared Medina MD ADDENDUM: I have reviewed the images with respect to her request made for left subdiaphragmatic drainage of a fluid collection. No fluid collection is observed within the left upper quadrant. There is residual splenic tissue that measures 5 cm in diameter with Hounsfield units 62. The stomach fundus extends up into the subdiaphragmatic location. No subdiaphragmatic fluid collection is observed. Surgical drains are noted. Osmar Chavez Jr., MD Chest CT 01/05/16 0000 Signed Impressions: Service Date/Time: Tuesday, January 05, 2016 23:15 - CONCLUSION: 1. Persistent left lower lobar consolidation. Improved consolidative infiltrates in the right lower lung. 2. Interval increase size bilateral pleural effusions , left greater than right. Osmar Alegria MD Celiac/Hepatic Arteriogram 12/27/15 0000 Signed Impressions: Service Date/Time: December 13:41 - CONCLUSION: 1. No active GI bleed identified. Robert Mckinney MD Abdomen X-Ray 12/18/15 0000 Signed Impressions: Service Date/Time: Friday, December 18, 2015 16:05 - CONCLUSION: Feeding tube tip is at the gastric antrum. Arnaldo Elias MD Head CT 12/02/15 1013 Signed Impressions: Service Date/Time: Wednesday, December 02, 2015 11:00 - CONCLUSION: 1. No intracranial abnormality is seen. 2. Air-fluid level in the right maxillary sinus. Arnaldo Reyes MD Last 24 hours Impressions Chest X-Ray 02/05/16 0600 Signed Impressions: Service Date/Time: Friday, February 05, 2016 04:11 - CONCLUSION: Worsening/developing effusions and basilar consolidation, currently left worse than right. Arnaldo Elias MD Objective Remarks GENERAL: Middle-aged chronically critically ill, lying in bed , awake, alert, interactive. HEENT: NCAT. mucous membranes moist. NECK: [address], no active bleeding, no evidence of infection. RESPIRATORY: Normal respiratory rate. Breath sounds present bilaterally, clear without wheezing or rhonchi. CARDIOVASCULAR: Regular, tachycardic. HR 110's. No murmurs rubs or gallops. GASTROINTESTINAL: J tube in place with tube feeds running @ 40cc/hr.Ostomy with brown colored stool approx 100cc MUSCULOSKELETAL: Pitting edema 2+ bilateral feet and hands. Gauze dressing bilateral upper extremity. Multiple open wounds in the lower extremity with gauze dressing. NEURO: Awake. Alert, interactive. RASS 0, CAM -. mouthing words. 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 Miller). - Trach exchanged 8.0 Shiley with cuff on 01/19 - DuoNeb q6h and as needed - Last CT guided thoracentesis 01/27 - CXR 02/11 unchanged - Lasix on hold since 02/23 - continue CPAP trials and trach collar trials as tolerated. continue IPPB therapy to help recruitment Leukocytosis Bandemia-resolved - re-cultured 02/07 - Bands 6->1->11->2->1 (02/16) - ID following, Dr. Becerra - WBC 18->18 today Sputum Culture 02/12 Stenotrophomonas Maltophilia Sputum Culture 02/07 Stenotrophomonas Maltophilia Blood Culture 02/07 NGTD Urine Culture 02/02 neg NIGEL - on home CPAP - Tracheostomy Hyperkalemia-resolved Hypokalemia-resolved - hold Lasix today. continue free water flushes to 300cc q6h. UOP slightly improved overnight. - Replete electrolytes per ICU protocol - Kayexalate discontinued Hypernatremia-resolved - continue Free water flushes 300 q 6 hr - Avoiding nephrotoxins. - Monitor BMP Perforated right colon with ischemic colitis - s/p ex-lap, extended right hemicolectomy with primary ileocolic anastamosis - s/p Ex lap 01/05 for bleeding gastric ulcer - management per general surgery - Open abdominal wound-2 small open areas of incision with continued packing, Primapore dressing BID to abdomen per general surgery. Granulation tissue Acute protein calorie malnutrition - severe -Nutrition reconsulted, for recommendations regarding supplementation - Beneprotein - Prealbumin 14 on 01/26 - Jevity goal rate to 65/hr @ goal Chronic hepatitis C - s/p interferon/ribavirin years ago - Liver biopsy 04/14/08 - monitor for liver failure -02/14 Ammonia level 31 -Alert oriented responsive Gastric ulcer disease - EGD 12/26/15 showed 2 large gastric ulcers with active bleeding - status post epinephrine infusion and cauterization - To OR 01/05 with GI bleeding and hemorrhagic shock. -S/P gastrotomy with ligation of gastric ulcer, lysis of adhesions - Continue Protonix 40 g IV q12h Acute Anemia - secondary to acute blood loss - Hgb stable, will transfuse for hemoglobin less than 7 - last transfused 1 unit PRBC 02/02 - No obvious active bleeding. - Ferrous Sulfate 300mg bid Thrombocytopenia-resolved - Monitor CBC - Hep PLT ab negative on 12/03 - due to chronic liver disease Hyperglycemia of Critical Illness - Monitor blood glucose per ICU protocol - Levemir BID on hold, not clinically indicated at this time - Low-dose insulin sliding scale DC Critical illness polyneuropathy -Continue PT daily, out of bed to chair, -functional maintenance of extremities 4 Open wounds,B/L upper extremities multiple stages -Reconsult wound care 02/11 B/L upper extremities -Digits on hand reddened and edematous-wound care consulted, Plastic reconsulted: debridement 02/21. Facial spasms/twitching -02/12 CT brain normal, possible left mastoiditis -Calcium level 9.1, BMP normal -Per ENT - mastoiditis to be followed up on outpatient basis -02/14 MRI brain: no acute disease. - EEG 02/12-mouth and facial twitching noted. The discharge could be of epileptiform significant, excessive artifact study limited. -02/15 Resolution of facial twitching -EEG 02/17 moderate diffuse encephalopathy possibly may be slight increased tendency for seizure. Noted bifrontal sharps and slow sharp complex noted -Neurology reconsulted for follow-up - per neurology, Keppra 500mg q12h. Urinary Retention: -- 02/16 Terazosin 5mg qhs. GI Prophylaxis: -- Protonix IV BID DVT Prophylaxis: - SCDs - No chemical DVT Prophylaxis, OOB to chair and daily functional maintenance of extremities x 4 ACCESS: --PIV x 2. Discuss [employer] at bedside. Level 2 Patient is now a DNR per his wishes as expressed by his family. Physician Fe Poole Problem Qualifiers (1) Respiratory failure: Qualified Code: J96.00 - Acute respiratory failure, unspecified whether with hypoxia or hypercapnia (2) Altered mental status: Qualified Code: R41.0 - Delirium (3) Sepsis: Qualified Code: A41.9 - Sepsis, due to unspecified organism Fe Poole MD Feb 25, 2016 09:36
--- NOTE | 2016-02-25 12:18 | HHI.HCPN ---
Reason for visit a. To assist with evaluation and management of symptoms including: pain, malnutrition, wounds, AMS b. To assist medical decision maker(s) with: better understanding of current medical conditions; weighing benefits/burdens of medical treatment options; making medical treatment decisions. . Subjective/Interval History Patient seen and assessed in room 1317. Mother, Gopi, also present. Patient appears "out of it" today. He does not attempt to respond to questions, not smiling. 02/25/16: BUN 74, creatinine 2.36, GFR 29. Patient started on Keppra 500 mg 2 times daily, given evidence of tendency for seizure activity on EEG recording. The patient continues to have facial spasms and twitching per family. Neurology continues to follow Patient taken to the OR for debridement on 02/22/16. Dressings on bilateral upper extremities remain clean, dry and intact. Per Plastic Surgery (ADDIE Crum) follow up exam today, wounds are healing well without drainage, odor or any other indications of infection. No significant change in edema noted. Patient has a history of chronic pain. Probable causes of plan include multiple surgeries, invasive lines, Sandoval, ostomy, NG tube, tracheostomy, immobility, wounds, bedbound status etc. On fentanyl patch 125mcg/h q3d. PRN oxycodone and Dilaudid available. . Family/friend interactions Spoke to patient's daughter, Kezia, via telephone as agreed during our last family meeting. Update provided on patient's recent labs and imaging. Questions answered the best my ability. . Advance Directives Living Will: Never completed Health Care Surrogate: Never completed Durable Power of Instructional Material Director: Never completed Advance Directive Specifics Health Care Surrogate(s): There is no designated health care surrogate. Per [place] statutes, in the absence of written advanced directives healthcare proxy falls to the patient's , Gopi Smith. . Documented care wishes: None available , Objective Vital Signs Date Time Temp Pulse Resp B/P Pulse Ox O2 Delivery O2 Flow Rate FiO2 02/25/16 10:24 99 40 02/25/16 08:00 40 02/25/16 07:16 99 40 02/25/16 07:16 40 02/25/16 07:00 94 Mechanical Ventilator 40 02/25/16 06:00 94 02/25/16 04:00 92 02/25/16 04:00 97.7 92 16 108/63 99 02/25/16 04:00 50 02/25/16 03:41 99 50 02/25/16 00:56 99 40 02/25/16 00:00 104 02/25/16 00:00 50 02/24/16 22:37 100 50 02/24/16 22:00 104 02/24/16 20:00 104 02/24/16 20:00 98 Mechanical Ventilator 50 02/24/16 20:00 50 02/24/16 19:59 100 50 02/24/16 16:37 98 50 02/24/16 16:00 45 02/24/16 14:46 91 50 02/24/16 12:39 98 45 Intake & Output 02/25/16 02/25/16 07:00 19:00 Intake Total 1744 ml Output Total 700 ml Balance 1044 ml IV Total 457 ml Tube Feeding 687 ml Other 600 ml Output Urine Total 450 ml Stool Total 250 ml . Physical Exam CONSTITUTIONAL/GENERAL: This is a frail chroncially ill middle-aged male patient on vent. TUBES/LINES/DRAINS: PIV 1, ostomy, trach, Sandoval, J tube SKIN: Skin appears thin and fragile. Bilateral upper and lower wrapped, dressing clean dry and intact. HEAD: Atraumatic. Normocephalic. EYES: No injection or drainage. No sclerae icterus. ENT: Hearing appears normal. Nose without bleeding or purulent drainage. Non- blanchable redness of her left earlobe. NECK: Trachea midline. CARDIOVASCULAR: Regular rate and rhythm RESPIRATORY/CHEST: Continue CPAP trails daily. Breath sounds diminished bilaterally. GASTROINTESTINAL: Ostomy with brown colored stool. GENITOURINARY: Without palpable bladder distension. Sandoval catheter in place. MUSCULOSKELETAL: Extremities without clubbing or cyanosis. Atrophy. NEUROLOGICAL: Remains encephalopathic. Not attempting to respond to questions , not smiling. PSYCHIATRIC: No anxiety or agitation observed. . . Diagnostic Tests Laboratory Laboratory Tests Test 02/23/16 02/24/16 02/24/16 02/24/16 03:32 03:59 16:50 17:01 White Blood Count 17.7 TH/MM3 (4.0-11.0) Red Blood Count 2.58 MIL/MM3 (4.50-5.90) Hemoglobin 7.8 GM/DL (13.0-17.0) Hematocrit 24.1 % (39.0-51.0) Mean Corpuscular Volume 93.5 FL (80.0-100.0) Mean Corpuscular Hemoglobin 30.2 PG (27.0-34.0) Mean Corpuscular Hemoglobin 32.3 % Concent (32.0-36.0) Red Cell Distribution Width 20.8 % (11.6-17.2) Platelet Count 484 TH/MM3 (150-450) Mean Platelet Volume 8.9 FL (7.0-11.0) Sodium Level 142 MEQ/L 141 MEQ/L 136 MEQ/L (136-145) (136-145) (136-145) Potassium Level 4.1 MEQ/L 4.4 MEQ/L 4.8 MEQ/L (3.5-5.1) (3.5-5.1) (3.5-5.1) Chloride Level 105 MEQ/L 102 MEQ/L 100 MEQ/L (98-107) (98-107) (98-107) Carbon Dioxide Level 28.6 MEQ/L 29.9 MEQ/L 26.8 MEQ/L (21.0-32.0) (21.0-32.0) (21.0-32.0) Anion Gap 8 MEQ/L (5-15) 9 MEQ/L (5-15) 9 MEQ/L (5-15) Blood Urea Nitrogen 67 MG/DL (7-18) 69 MG/DL (7-18) 74 MG/DL (7-18) Creatinine 1.91 MG/DL 2.07 MG/DL 2.20 MG/DL (0.60-1.30) (0.60-1.30) (0.60-1.30) Estimat Glomerular Filtration 37 ML/MIN (>89) 34 ML/MIN (>89) 31 ML/MIN (>89) Rate Random Glucose 146 MG/DL 140 MG/DL 152 MG/DL (74-106) (74-106) (74-106) Calcium Level 10.1 MG/DL 9.3 MG/DL 9.2 MG/DL (8.5-10.1) (8.5-10.1) (8.5-10.1) Urine Color YELLOW (YELLW/STRAW) Urine Turbidity HAZY (CLEAR) Urine pH 8.0 (5.0-8.5) Urine Specific [place] 1.013 (1.002-1.035) Urine Protein 100 mg/dL (NEG-TRACE) Urine Glucose (UA) NEG mg/dL (NEG) Urine Ketones NEG mg/dL (NEG) Urine Occult Blood SMALL (NEG) Urine Nitrite NEG (NEG) Urine Bilirubin NEG (NEG) Urine Urobilinogen LESS THAN 2.0 MG/DL (LESS THAN 2.0) Urine Leukocyte Esterase SMALL (NEG) Urine RBC 4 /hpf (0-3) Urine WBC 19 /hpf (0-5) Urine Squamous Epithelial 2 /hpf (0-5) Cells Urine Calcium Oxalate Crystals RARE /hpf (NONE) Urine Bacteria RARE /hpf (NONE) Urine Hyaline Casts 1 /lpf (RARE) Urine Mucus FEW /lpf (OCC) Microscopic Urinalysis Comment Urine Eosinophils NONE SEEN /HPF (NONE SEEN) Urine Random Creatinine 15.9 MG/DL Urine Random Sodium 29 MEQ/L Test 02/25/16 03:42 Sodium Level 136 MEQ/L (136-145) Potassium Level 5.1 MEQ/L (3.5-5.1) Chloride Level 100 MEQ/L (98-107) Carbon Dioxide Level 27.4 MEQ/L (21.0-32.0) Anion Gap 9 MEQ/L (5-15) Blood Urea Nitrogen 74 MG/DL (7-18) Creatinine 2.36 MG/DL (0.60-1.30) Estimat Glomerular Filtration 29 ML/MIN (>89) Rate Random Glucose 104 MG/DL (74-106) Calcium Level 9.5 MG/DL (8.5-10.1) . Result Diagram: 02/23/16 0332 02/25/16 0342 Imaging Last 72 hours Impressions Renal Ultrasound 02/24/16 0000 Signed Impressions: Service Date/Time: Wednesday, February 24, 2016 19:13 - CONCLUSION: 1. Multiple calcified nonobstructing left renal calculi. The patient's known right renal calculi are not well visualized sonographically. 2. Simple cyst within the lower pole of the right kidney measuring 2.4 cm in size. 3. No hydronephrosis or solid renal mass. 4. Poor visualization of the urinary bladder due to non distension. 5. Probable sludge ball within the gallbladder measuring 4.6 x 4.0 x 2.8 cm. Foster Ferreira MD . Procedures 12/02/15: Intubated 12/02/15: NG tube placed 12/02/15: Right subclavian central line placed 12/14/15: Left IJ central line placement BEV PEG tube Ileostomy 12/28/15: Tracheostomy 12/30/15: Right subclavian central venous line placed 01/05/16: Right axillary arterial line placement 01/05/16: Right IJ central line placement 01/05/16: Bronchoscopy 01/17/16: EGD . . . 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 Probable causes of plan include multiple surgeries, invasive lines, Sandoval, ostomy, NG tube, tracheostomy , immobility, wounds, bedbound status etc. On fentanyl patch 125mcg/h q3d. PRN oxycodone and Dilaudid available. . (2) Malnutrition 0-10 Scale: Unable to quantify Comment: . (3) Wounds, multiple Comment: Patient taken to the OR today for debridement on 02/22/16. Dressings on bilateral upper extremities remain clean, dry and intact. Per Plastic Surgery (ADDIE Crum) follow up exam today, wounds are healing well without drainage, odor or any other indications of infection. No significant change in edema noted. . (4) Altered mental status 0-10 Scale: Unable to quantify (He is awake but appears "out of it". He does not attempt to respond to questions by mouthing words. Spoke with Dr. Poole regarding patient's altered mental status. CT head today showed no acute intracranial abnormalities, new opacification of the left mastoid air cells, clinical evaluation for acute left mastoiditis suggested. Ammonia level at 31. EEG pending.) Comment: Patient started on Keppra 500 mg 2 times daily, given evidence of tendency for seizure activity on EEG recording. Neurology continues to follow Pertinent Non-Medical Issues Psychosocial:Patient was born in [facility], moving to [place] at a young age. He has 2 siblings who live locally (Feroz and Janeen). 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 The patient met his current (Gopi Smith) through mutual friends and they have now been for approximately 20 years. The patient has 1 adult daughter (Kezia) from a previous relationship. She is 30 years old. Spiritual:No restorationism affiliation Legal: There is no designated health care surrogate. Per [place] statutes, in the absence of written advanced directives healthcare proxy falls to the patient 's , Gopi Smith. Ethical issues impacting care: None at this time. . Important Contacts Gopi Smith, spouse: [phone] Kezia Starks, daughter: [phone] . . Prognosis Patient is a 55 year old male with a long history of chronic illnesses. PMH is significant for Hep C, NIGEL, gout, RA, HTN, chronic pain, and migraines. Patient was admitted on 12/02/15 with sepsis due to Staph Aureus hand infection and E. Coli bacteriemia. Patient has been to the OR multiple times for GI bleed. Patient has had persistent anemia/thrombocytopenia requiring multiple transfusions. S/p tracheotomy, ileostomy, BEV 2, and G- tube, patient remains critically ill with an overall poor prognosis. . Code Status: No Code Plan * NO CODE * Decision-making: The patient is currently not capacitated to participate in decisions related to medical treatment goals. There is no designated health care surrogate. Per [place] statutes, in the absence of written advanced directives healthcare proxy falls to the patient's . HCP: GOPI SMITH ( ). * Goals: GOALS REMAIN AGGRESSIVE. However, patient's daughter and agree the patient would not want to be kept alive on machines. They do not feel he is at the point where they need to consider stopping care because he has "gotten through so much are ready" * Spoke to patient's daughter, Kezia, via telephone as agreed during our last family meeting. Update provided on patient's recent labs and imaging. * Symptom managementpain: Patient has a history of chronic pain. Probable causes of plan include multiple surgeries, invasive lines, Sandoval, ostomy, NG tube, tracheostomy, immobility, wounds, bedbound status etc. On fentanyl patch 125mcg/h q3d. PRN Dilaudid and oxycodone available, being sparingly used. * Symptom managementwounds: To OR 01/21/17 for wound debridement. Dressings on bilateral upper extremities remain clean, dry and intact. Per Plastic Surgery ( ADDIE Crum) follow up exam today, wounds are healing well without drainage, odor or any other indications of infection. No significant change in edema noted. * Palliative care will continue to follow this patient throughout his hospitalization to establish trust, assist with symptom management and clarification of medical treatment goals. . Leah Pop Feb 25, 2016 12:18
--- NOTE | 2016-02-25 15:48 | PD.PLAS.PN ---
Subjective Remarks Patient lying comfortably. Objective Vital Signs Date Time Temp Pulse Resp B/P Pulse Ox O2 Delivery O2 Flow Rate FiO2 02/25/16 15:17 50 02/25/16 15:17 94 50 02/25/16 13:10 96 40 02/25/16 12:00 50 02/25/16 10:24 99 40 02/25/16 08:00 40 02/25/16 07:16 99 40 02/25/16 07:16 40 02/25/16 07:00 94 Mechanical Ventilator 40 02/25/16 06:00 94 02/25/16 04:00 92 02/25/16 04:00 97.7 92 16 108/63 99 02/25/16 04:00 50 02/25/16 03:41 99 50 02/25/16 00:56 99 40 02/25/16 00:00 104 02/25/16 00:00 50 02/24/16 22:37 100 50 02/24/16 22:00 104 02/24/16 20:00 104 02/24/16 20:00 98 Mechanical Ventilator 50 02/24/16 20:00 50 02/24/16 19:59 100 50 02/24/16 16:37 98 50 02/24/16 16:00 45 I/O 02/24/16 02/24/16 02/24/16 02/25/16 02/25/16 02/25/16 07:00 15:00 23:00 07:00 15:00 23:00 Intake Total 1349 ml 1446 ml 1083 ml 661 ml 837 ml Output Total 330 ml 350 ml 300 ml 400 ml 410 ml Balance 1019 ml 1096 ml 783 ml 261 ml 427 ml IV Total 636 ml 726 ml 338 ml 119 ml 45 ml Tube Feeding 413 ml 520 ml 445 ml 242 ml 492 ml Other 300 ml 200 ml 300 ml 300 ml 300 ml Output Urine Total 200 ml 150 ml 200 ml 250 ml 230 ml Stool Total 130 ml 200 ml 100 ml 150 ml 180 ml Laboratory Tests Test 02/24/16 02/24/16 02/25/16 16:50 17:01 03:42 Urine Color YELLOW Urine Turbidity HAZY Urine pH 8.0 Urine Specific [place] 1.013 Urine Protein 100 Urine Glucose (UA) NEG Urine Ketones NEG Urine Occult Blood SMALL Urine Nitrite NEG Urine Bilirubin NEG Urine Urobilinogen LESS THAN 2.0 Urine Leukocyte Esterase SMALL Urine RBC 4 Urine WBC 19 Urine Squamous Epithelial 2 Cells Urine Calcium Oxalate Crystals RARE Urine Bacteria RARE Urine Hyaline Casts 1 Urine Mucus FEW Microscopic Urinalysis Comment Urine Eosinophils NONE SEEN Urine Random Creatinine 15.9 Urine Random Sodium 29 Sodium Level 136 136 Potassium Level 4.8 5.1 Chloride Level 100 100 Carbon Dioxide Level 26.8 27.4 Anion Gap 9 9 Blood Urea Nitrogen 74 74 Creatinine 2.20 2.36 Estimat Glomerular Filtration 31 29 Rate Random Glucose 152 104 Calcium Level 9.2 9.5 Result Diagram: 02/23/16 0332 02/25/16 0342 Exam Findings Dressings in place to bilateral upper extremity. On removal, there is only dry kerlix applied to the left upper extremity without nonstick dressing or silvadene. Right side is dressed as ordered. Wounds are healing well. There is no cellulitis, drainage, odor or other indication of infection. No significant change in edema. Assessment and Plan Diagnosis: (1) Open wound of right upper extremity with complication Assessment and Plan Wounds are redressed with Silvadene, Adaptic, telga, ABD and dorcas. This is done with the RN. Continue with daily dressing changes. Nelly Park Feb 25, 2016 15:48
[2016-02-25] MEDS: TERAZOSIN HCL 5 MG CAP PO SCH (20:20)
[2016-02-26] VITALS (12 sets, daily range): BP systolic 98–120; BP diastolic 55–68; PULSE 84–120; RESP 21–26; TEMP 97.4–97.7; O2SAT 92–99
[2016-02-26] MEDS: METOPROLOL TARTRATE 25 MG TAB TUBE SCH ×4 (00:31→18:00)
[2016-02-26] MEDS: oxyCODONE HCL ORAL CONC 20 MG/ML SYRINGE PO SCH ×5 (00:31→20:43)
[2016-02-26] MEDS: cefTAZidime INJ 2,000 MG in SODIUM CHLORIDE 0.9% INJ 100 ML IV SCH ×2 (00:32→11:39)
[2016-02-26] MEDS: FREE WATER G-TUBE SCH ×4 (03:00→20:10)
[2016-02-26] MEDS: CHLORHEXIDINE GLUCONATE 2 % 1 PACK (2 CLOTHS) TOP SCH (04:00)
[2016-02-26 04:59] LABS: BICARBONATE 25.9 MEQ/L (21.0-32.0); INDIRECT BILIRUBIN 0.1 MG/DL (0.0-0.8); TOTAL BILIRUBIN ADULT 0.3 MG/DL (0.2-1.0)
[2016-02-26] MEDS: PANTOPRAZOLE SODIUM 40 MG VIAL IV PUSH SCH ×2 (05:14→16:44)
[2016-02-26] MEDS: POVIDONE IODINE 10% OINT 30 GM TUBE TOPICAL SCH (09:00)
[2016-02-26] MEDS: SILVER SULFADIAZINE 1% CR 400 GM JAR TOPICAL SCH (09:00)
[2016-02-26] MEDS: NEOMYCIN/POLYMYXIN/BACITRACIN OINT 15 GM TUBE TOPICAL SCH ×2 (09:00→20:10)
[2016-02-26] MEDS: MULTIVITAMINS LIQUID 5 ML UDC TUBE SCH (09:37)
[2016-02-26] MEDS: FERROUS SULFATE 300 MG /5ML UDC TUBE SCH ×2 (09:37→20:06)
[2016-02-26] MEDS: levETIRAcetam 500 MG/5 ML UDC PO SCH ×2 (09:38→20:06)
[2016-02-26] MEDS: CHLORHEXIDINE 0.12% (ORAL KIT) 15 ML CUP MT SCH ×2 (09:39→20:07)
[2016-02-26] MEDS: HYDROmorphone HCL PF 2 MG/ML VIAL IV PUSH PRN (10:30)
[2016-02-26 12:51] LABS: UR UREA/CREAT RATIO 45.78 mg/mg (())
[2016-02-26] MEDS: fentaNYL 25 MCG/HR PATCH TD SCH (16:42)
[2016-02-26] MEDS: fentaNYL 100 MCG/HR PATCH TD SCH (16:43)
[2016-02-26] MEDS: REMOVE OLD PATCH TD SCH ×2 (17:00)
--- NOTE | 2016-02-26 18:50 | HHI.CCPN ---
Subjective Remarks/Hospital Course 55-year-old male brought by EMS with altered mental status. He has history of chronic opiate medications including methadone and morphine that he takes for pain management and hence they gave him Narcan IV which brought the GCS up to 13. The blood glucose was 74. He has open wounds from his right upper and bilateral lower extremities. He has history of hepatitis C. Last week he was pealing and eating shrimps. Bedside blood sugar was 76 in the ER. He was tachycardic in 1 teens and was intubated in the ED for airway protection. Admitted to ICU with sepsis due to Staph Aureus hand infection and E. Coli bacteriemia. Hospital course complicated by perforated ascending colon with extended right hemicolectomy, primary ileocolic anastamosis, open abdomen, septic shock, acute hypoxic and hypercarbic respiratory failure 12/19. Taken back to the OR 12/20 afternoon for washout and completion colectomy. 12/25 Hemoglobin dropped to 4.1. Noted to have bloody drainage from G-tube and dorsal ileostomy with black stool output due to 2 gastric ulcers bleeding, stomach a significant part had decreased discoloration indicating probable ischemia. s/p epi injection and cauterization. 12/27Tracheostomy placed. 01/06: Underwent exploratory laparotomy with findings of bleeding gastric ulcer which was oversewn by Dr. Verdin abdomen left open with wound VAC in place. Now closed. On trach collar occasionally alternation intermittently with a CPAP. 02/10 Tmax 100.0. The patient has been maintain on CPAP 15 over 5/24 hours without difficulty. O2 saturations greater than 92%. Plan for trach collar trials today. 02/11 Tmax 98.4. The patient was unable to begin trach collar trials yesterday. The patient became tachypnea, RR 50's on CPAP at 4:30 yesterday requiring mechanical ventilation being placed on a rate.Patient has been maintained on mechanical ventilation overnight without any respiratory distress. O2 saturation remains 9798%. No episodes of nausea last night the patient tolerated tube feeds at 50/cc, will advance to goal today. 02/12 Afebrile. This a.m., upon examination, the patient spontaneously had eyes open but was not responding to commands as previously. Noted facial twitching eye twitching specifically the right side of face. The patient was not mouthing any words. Concern for subclinical seizure activity, or elevated ammonia levels. Ammonia level drawn, CT scan obtained EEG pending. Patient also did not tolerate tube feeds overnight. 02/13. Patient has tolerated tube feeds for the last 24 hours, noted albumin level decreased slightly from 1.1-1.0. Nutrition reconsulted for possible supplementation aids. Patient underwent EEG yesterday,, inconclusive could be of epileptiform significant, study was limited due to excessive artifact. CT brain revealed possible left mastoiditis, ammonia level not elevated .Upon examination, patient continues to have facial twitching, intermittently. 02/14 Afebrile. The patient continues to tolerate tube feeds currently at 40 cc /hour, no nausea last evening. Continue noted facial twitching by staff, the patient will go undergo MRI studies today. The patient was able to tolerate CPAP trials for 12 hours yesterday, and class placed back on the vent at 6 PM. 02/15: afebrile. neuro symptoms have resolved. now talking and interactive. smiling. 02/16: afebrile. mental status back to baseline. tolerating cpap 18/5/40% today. interactive. I had a long conversation with the Sarah family today about the fact that, while we continue to make small progresses in his acute illnesses, we have made huge steps backwards in overall functioning. He is much more malnurished and deconditioned than he was on admission, and he is now starting to get opportunistic type infections. All of these point to an overall decline , and I am concerned that he may not survive to hospital discharge, but succumb to repeat medical complications from his now chronic medical diseases. I expressed that I would continue to remain aggressive as long as he wanted me to , but the family needed to start to think about very realistic goals of care, and if we continued to decline in overall functional status and deconditioning, we may consider if we have an acute decline, transitioning to a more comfort type goals. They expressed understanding of this. 02/17: No acute events overnight. Conversation with family per Dr. Chavez yesterday. Patient was placed on Hytrin yesterday. Patient is alert and responsive, mouthing words. Patient continues to tolerate CPAP. 02/18: Afebrile. The patient tolerated CPAP for 5 hours today. Evaluation on right hand digits remain edematous and reddened, noted Adaptic adherence to tendons. Wound care we consulted regarding clarification of wound care instructions. 02/19: The patient tolerated trach collar trials for approximately 30 minutes yesterday. The patient continues on CPAP trials today. Neurology was consulted regarding repeat EEG showing several spikes possible epileptiform activity. Wound care was reconsulted regarding edematous reddened digits right hand and left forearm. 02/20: still with CPAP trials. per plastics, plan for debridement of hand tomorrow in OR. Neuro started Keppra 500mg q12h. otherwise, no acute changes. 02/21: no clinical changes. does have an area of non-blanchable redness over left ear lobe. this is not painful for him. it is the side of his head that he prefers to lay on when resting. We are placing bacitracin on it and keeping pressure off of this area. I had a long family meeting with the [facility] family and palliative care. We talked about long-term goals, and some possibilities if he does not improve, but continues to have a very indolent downward decline. Both his stepdaughter and have agreed that if he were to decline to the point of needing CPR for cardiac arrest, he would not want to live in that deconditioned state, even if we were able to regain circulation. Thus, I have made the patient DNR. Otherwise, plan for OR today for hand debridement. 02/22: debridement of wounds yesterday. still doing well on CPAP, but fails t- piece for tachycardia and tachypnea. Cr bumped from 1.3 to 1.9. clinically he appears slightly dehydrated, even though he has such poor nutritional status that he remains anasarcic. 02/23: no changes clinically. OOB to chair. tolerated SBT all night last night, but tired out today and required rate on vent given fatigue. Cr continues to rise despite gentle hydration. 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 02/24: The patient failed trach collar trials yesterday. CPAP initiated this morning. Patient's urine output unchanged, with a liter of LR bolus yesterday. Creatinine slightly increased today. 02/25: The patient remained out of bed in the chair for approximately 3 hours today. The patient was bolused with 1 L of IV fluid, secondary to low urinary output. The patient failed T piece trials, lasting only 20 minutes. Objective Vital Signs Date Time Temp Pulse Resp B/P Pulse Ox O2 Delivery O2 Flow Rate FiO2 02/26/16 16:00 50 02/26/16 15:12 99 02/26/16 07:00 Mechanical Ventilator 02/26/16 06:00 90 02/26/16 04:00 97.6 26 120/68 Intake and Output 02/25/16 02/25/16 02/26/16 08:00 16:00 00:00 Intake Total 661 ml 837 ml 824 ml Output Total 400 ml 410 ml 415 ml Balance 261 ml 427 ml 409 ml Result Diagram: 02/23/16 0332 02/26/16 0406 Imaging Last Impressions Chest X-Ray 02/11/16 0600 Signed Impressions: Service Date/Time: Thursday, February 11, 2016 05:41 - CONCLUSION: Rotated study demonstrating no significant interval change. Owen Arzola MD Upper Extremity Ultrasound 01/30/16 0000 Signed Impressions: Service Date/Time: Saturday, January 30, 2016 11:18 - CONCLUSION: Limited exam without thrombus identified. Raudel Mckinney MD FACR Thoracentesis 01/28/16 0000 Signed Impressions: Service Date/Time: Thursday, January 28, 2016 12:54 - CONCLUSION: Uncomplicated CT-guided thoracentesis. Ramone Hall MD Abdomen/Pelvis CT 01/23/16 0800 Signed Impressions: Service Date/Time: Saturday, January 23, 2016 09:05 - CONCLUSION: Relative to the prior study the marked distention of the stomach is reduced. There is a persistent 5 cm left upper quadrant sub-diaphragmatic fluid collection and drain in the left upper quadrant. Patient is post splenectomy. Jejunostomy is in place and ostomy is noted in the right lower abdomen. No free fluid or free air is appreciated and there is no evidence of obstruction. Bilateral pleural effusions persists small but slightly larger on the right with left lower lobe consolidation. Jared Medina MD ADDENDUM: I have reviewed the images with respect to her request made for left subdiaphragmatic drainage of a fluid collection. No fluid collection is observed within the left upper quadrant. There is residual splenic tissue that measures 5 cm in diameter with Hounsfield units 62. The stomach fundus extends up into the subdiaphragmatic location. No subdiaphragmatic fluid collection is observed. Surgical drains are noted. Osmar Chavez Jr., MD Chest CT 01/05/16 0000 Signed Impressions: Service Date/Time: Tuesday, January 05, 2016 23:15 - CONCLUSION: 1. Persistent left lower lobar consolidation. Improved consolidative infiltrates in the right lower lung. 2. Interval increase size bilateral pleural effusions , left greater than right. Osmar Alegria MD Celiac/Hepatic Arteriogram 12/27/15 0000 Signed Impressions: Service Date/Time: December 13:41 - CONCLUSION: 1. No active GI bleed identified. Robert Mckinney MD Abdomen X-Ray 12/18/15 0000 Signed Impressions: Service Date/Time: Friday, December 18, 2015 16:05 - CONCLUSION: Feeding tube tip is at the gastric antrum. Arnaldo Elias MD Head CT 12/02/15 1013 Signed Impressions: Service Date/Time: Wednesday, December 02, 2015 11:00 - CONCLUSION: 1. No intracranial abnormality is seen. 2. Air-fluid level in the right maxillary sinus. Arnaldo Reyes MD Last 24 hours Impressions Chest X-Ray 02/05/16 0600 Signed Impressions: Service Date/Time: Friday, February 05, 2016 04:11 - CONCLUSION: Worsening/developing effusions and basilar consolidation, currently left worse than right. Arnaldo Elias MD Objective Remarks GENERAL: Middle-aged chronically critically ill, lying in bed , awake, alert, interactive. HEENT: NCAT. mucous membranes moist. NECK: [address], no active bleeding, no evidence of infection. RESPIRATORY: Normal respiratory rate. Breath sounds present bilaterally, clear without wheezing or rhonchi. CARDIOVASCULAR: Regular, tachycardic. HR 110's. No murmurs rubs or gallops. GASTROINTESTINAL: J tube in place with tube feeds running @ 40cc/hr.Ostomy with brown colored stool approx 100cc MUSCULOSKELETAL: Pitting edema 2+ bilateral feet and hands. Gauze dressing bilateral upper extremity. Multiple open wounds in the lower extremity with gauze dressing. NEURO: Awake. Alert, interactive. RASS 0, CAM -. mouthing words. 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 Miller). - Trach exchanged 8.0 Shiley with cuff on 01/19 - DuoNeb q6h and as needed - Last CT guided thoracentesis 01/27 - CXR 02/11 unchanged - Lasix on hold since 02/23 - continue CPAP trials and trach collar trials as tolerated. continue IPPB therapy to help recruitment Leukocytosis Bandemia-resolved - re-cultured 02/07 - Bands 6->1->11->2->1 (02/16) - ID following, Dr. Becerra - WBC 18->18 today Sputum Culture 02/12 Stenotrophomonas Maltophilia Sputum Culture 02/07 Stenotrophomonas Maltophilia Blood Culture 02/07 NGTD Urine Culture 02/02 neg NIGEL - on home CPAP - Tracheostomy Hyperkalemia-resolved Hypokalemia-resolved - hold Lasix today. continue free water flushes to 300cc q6h. UOP slightly improved overnight. - Replete electrolytes per ICU protocol - Kayexalate discontinued Hypernatremia-resolved - continue Free water flushes 300 q 6 hr - Avoiding nephrotoxins. - Monitor BMP Perforated right colon with ischemic colitis - s/p ex-lap, extended right hemicolectomy with primary ileocolic anastamosis - s/p Ex lap 01/05 for bleeding gastric ulcer - management per general surgery - Open abdominal wound-2 small open areas of incision with continued packing, Primapore dressing BID to abdomen per general surgery. Granulation tissue Acute protein calorie malnutrition - severe -Nutrition reconsulted, for recommendations regarding supplementation - Beneprotein - Prealbumin 14 on 01/26 - Jevity goal rate to 65/hr @ goal Chronic hepatitis C - s/p interferon/ribavirin years ago - Liver biopsy 04/14/08 - monitor for liver failure -02/14 Ammonia level 31 -Alert oriented responsive Gastric ulcer disease - EGD 12/26/15 showed 2 large gastric ulcers with active bleeding - status post epinephrine infusion and cauterization - To OR 01/05 with GI bleeding and hemorrhagic shock. -S/P gastrotomy with ligation of gastric ulcer, lysis of adhesions - Continue Protonix 40 g IV q12h Acute Anemia - secondary to acute blood loss - Hgb stable, will transfuse for hemoglobin less than 7 - last transfused 1 unit PRBC 02/02 - No obvious active bleeding. - Ferrous Sulfate 300mg bid Thrombocytopenia-resolved - Monitor CBC - Hep PLT ab negative on 12/03 - due to chronic liver disease Hyperglycemia of Critical Illness - Monitor blood glucose per ICU protocol - Levemir BID on hold, not clinically indicated at this time - Low-dose insulin sliding scale DC Critical illness polyneuropathy -Continue PT daily, out of bed to chair, -functional maintenance of extremities 4 Open wounds,B/L upper extremities multiple stages -Reconsult wound care 02/11 B/L upper extremities -Digits on hand reddened and edematous-wound care consulted, Plastic reconsulted: debridement 02/21. Facial spasms/twitching -02/12 CT brain normal, possible left mastoiditis -Calcium level 9.1, BMP normal -Per ENT - mastoiditis to be followed up on outpatient basis -02/14 MRI brain: no acute disease. - EEG 02/12-mouth and facial twitching noted. The discharge could be of epileptiform significant, excessive artifact study limited. -02/15 Resolution of facial twitching -EEG 02/17 moderate diffuse encephalopathy possibly may be slight increased tendency for seizure. Noted bifrontal sharps and slow sharp complex noted -Neurology reconsulted for follow-up - per neurology, Keppra 500mg q12h. Urinary Retention: -- 02/16 Terazosin 5mg qhs. GI Prophylaxis: -- Protonix IV BID DVT Prophylaxis: - SCDs - No chemical DVT Prophylaxis, OOB to chair and daily functional maintenance of extremities x 4 ACCESS: --PIV x 2. Discuss [employer] TE[employer]ER at bedside. Level 2 Patient is now a DNR per his wishes as expressed by his family. Physician Fe Poole Problem Qualifiers (1) Respiratory failure: Qualified Code: J96.00 - Acute respiratory failure, unspecified whether with hypoxia or hypercapnia (2) Altered mental status: Qualified Code: R41.0 - Delirium (3) Sepsis: Qualified Code: A41.9 - Sepsis, due to unspecified organism Fe Poole MD Feb 26, 2016 18:49
[2016-02-26] MEDS: SODIUM CHLORIDE 0.9% FLUSH 5 ML FLUSH IVF PRN (20:06)
[2016-02-26] MEDS: TERAZOSIN HCL 5 MG CAP PO SCH (20:10)
[2016-02-26] MEDS: ONDANSETRON HCL 4 MG/2 ML VIAL IV PUSH PRN (21:42)
[2016-02-27] VITALS (18 sets, daily range): BP systolic 99–124; BP diastolic 51–71; PULSE 96–118; RESP 11–24; TEMP 97.6–99.3; O2SAT 92–100
[2016-02-27] MEDS: METOPROLOL TARTRATE 25 MG TAB TUBE SCH ×4 (00:08→16:56)
[2016-02-27] MEDS: cefTAZidime INJ 2,000 MG in SODIUM CHLORIDE 0.9% INJ 100 ML IV SCH ×2 (00:08→17:25)
[2016-02-27] MEDS: oxyCODONE HCL ORAL CONC 20 MG/ML SYRINGE PO SCH ×6 (00:08→20:52)
[2016-02-27] MEDS: FREE WATER G-TUBE SCH ×4 (02:30→20:53)
[2016-02-27] MEDS: CHLORHEXIDINE GLUCONATE 2 % 1 PACK (2 CLOTHS) TOP SCH (04:00)
[2016-02-27 04:46] LABS: BICARBONATE 23.9 MEQ/L (21.0-32.0); POTASSIUM 5.1 MEQ/L (3.5-5.1)
[2016-02-27] MEDS: PANTOPRAZOLE SODIUM 40 MG VIAL IV PUSH SCH ×2 (05:18→16:53)
[2016-02-27] MEDS: levETIRAcetam 500 MG/5 ML UDC PO SCH ×2 (08:08→20:52)
[2016-02-27] MEDS: FERROUS SULFATE 300 MG /5ML UDC TUBE SCH ×2 (08:09→20:52)
[2016-02-27] MEDS: MULTIVITAMINS LIQUID 5 ML UDC TUBE SCH (08:11)
[2016-02-27] MEDS: CHLORHEXIDINE 0.12% (ORAL KIT) 15 ML CUP MT SCH ×2 (08:12→20:21)
[2016-02-27] MEDS: POVIDONE IODINE 10% OINT 30 GM TUBE TOPICAL SCH (09:00)
[2016-02-27] MEDS: NEOMYCIN/POLYMYXIN/BACITRACIN OINT 15 GM TUBE TOPICAL SCH ×2 (09:00→20:53)
[2016-02-27] MEDS: SILVER SULFADIAZINE 1% CR 400 GM JAR TOPICAL SCH (09:00)
[2016-02-27] MEDS: ONDANSETRON HCL 4 MG/2 ML VIAL IV PUSH PRN ×2 (12:40→21:13)
--- NOTE | 2016-02-27 15:20 | HHI.CCPN ---
Subjective Remarks/Hospital Course 55-year-old male brought by EMS with altered mental status. He has history of chronic opiate medications including methadone and morphine that he takes for pain management and hence they gave him Narcan IV which brought the GCS up to 13. The blood glucose was 74. He has open wounds from his right upper and bilateral lower extremities. He has history of hepatitis C. Last week he was pealing and eating shrimps. Bedside blood sugar was 76 in the ER. He was tachycardic in 1 teens and was intubated in the ED for airway protection. Admitted to ICU with sepsis due to Staph Aureus hand infection and E. Coli bacteriemia. Hospital course complicated by perforated ascending colon with extended right hemicolectomy, primary ileocolic anastamosis, open abdomen, septic shock, acute hypoxic and hypercarbic respiratory failure 12/19. Taken back to the OR 12/20 afternoon for washout and completion colectomy. 12/25 Hemoglobin dropped to 4.1. Noted to have bloody drainage from G-tube and dorsal ileostomy with black stool output due to 2 gastric ulcers bleeding, stomach a significant part had decreased discoloration indicating probable ischemia. s/p epi injection and cauterization. 12/27Tracheostomy placed. 01/06: Underwent exploratory laparotomy with findings of bleeding gastric ulcer which was oversewn by Dr. Verdin abdomen left open with wound VAC in place. Now closed. On trach collar occasionally alternation intermittently with a CPAP. 02/10 Tmax 100.0. The patient has been maintain on CPAP 15 over 5/24 hours without difficulty. O2 saturations greater than 92%. Plan for trach collar trials today. 02/11 Tmax 98.4. The patient was unable to begin trach collar trials yesterday. The patient became tachypnea, RR 50's on CPAP at 4:30 yesterday requiring mechanical ventilation being placed on a rate.Patient has been maintained on mechanical ventilation overnight without any respiratory distress. O2 saturation remains 9798%. No episodes of nausea last night the patient tolerated tube feeds at 50/cc, will advance to goal today. 02/12 Afebrile. This a.m., upon examination, the patient spontaneously had eyes open but was not responding to commands as previously. Noted facial twitching eye twitching specifically the right side of face. The patient was not mouthing any words. Concern for subclinical seizure activity, or elevated ammonia levels. Ammonia level drawn, CT scan obtained EEG pending. Patient also did not tolerate tube feeds overnight. 02/13. Patient has tolerated tube feeds for the last 24 hours, noted albumin level decreased slightly from 1.1-1.0. Nutrition reconsulted for possible supplementation aids. Patient underwent EEG yesterday,, inconclusive could be of epileptiform significant, study was limited due to excessive artifact. CT brain revealed possible left mastoiditis, ammonia level not elevated .Upon examination, patient continues to have facial twitching, intermittently. 02/14 Afebrile. The patient continues to tolerate tube feeds currently at 40 cc /hour, no nausea last evening. Continue noted facial twitching by staff, the patient will go undergo MRI studies today. The patient was able to tolerate CPAP trials for 12 hours yesterday, and class placed back on the vent at 6 PM. 02/15: afebrile. neuro symptoms have resolved. now talking and interactive. smiling. 02/16: afebrile. mental status back to baseline. tolerating cpap 18/5/40% today. interactive. I had a long conversation with the Sarah family today about the fact that, while we continue to make small progresses in his acute illnesses, we have made huge steps backwards in overall functioning. He is much more malnurished and deconditioned than he was on admission, and he is now starting to get opportunistic type infections. All of these point to an overall decline , and I am concerned that he may not survive to hospital discharge, but succumb to repeat medical complications from his now chronic medical diseases. I expressed that I would continue to remain aggressive as long as he wanted me to , but the family needed to start to think about very realistic goals of care, and if we continued to decline in overall functional status and deconditioning, we may consider if we have an acute decline, transitioning to a more comfort type goals. They expressed understanding of this. 02/17: No acute events overnight. Conversation with family per Dr. Chavez yesterday. Patient was placed on Hytrin yesterday. Patient is alert and responsive, mouthing words. Patient continues to tolerate CPAP. 02/18: Afebrile. The patient tolerated CPAP for 5 hours today. Evaluation on right hand digits remain edematous and reddened, noted Adaptic adherence to tendons. Wound care we consulted regarding clarification of wound care instructions. 02/19: The patient tolerated trach collar trials for approximately 30 minutes yesterday. The patient continues on CPAP trials today. Neurology was consulted regarding repeat EEG showing several spikes possible epileptiform activity. Wound care was reconsulted regarding edematous reddened digits right hand and left forearm. 02/20: still with CPAP trials. per plastics, plan for debridement of hand tomorrow in OR. Neuro started Keppra 500mg q12h. otherwise, no acute changes. 02/21: no clinical changes. does have an area of non-blanchable redness over left ear lobe. this is not painful for him. it is the side of his head that he prefers to lay on when resting. We are placing bacitracin on it and keeping pressure off of this area. I had a long family meeting with the [facility] family and palliative care. We talked about long-term goals, and some possibilities if he does not improve, but continues to have a very indolent downward decline. Both his stepdaughter and have agreed that if he were to decline to the point of needing CPR for cardiac arrest, he would not want to live in that deconditioned state, even if we were able to regain circulation. Thus, I have made the patient DNR. Otherwise, plan for OR today for hand debridement. 02/22: debridement of wounds yesterday. still doing well on CPAP, but fails t- piece for tachycardia and tachypnea. Cr bumped from 1.3 to 1.9. clinically he appears slightly dehydrated, even though he has such poor nutritional status that he remains anasarcic. 02/23: no changes clinically. OOB to chair. tolerated SBT all night last night, but tired out today and required rate on vent given fatigue. Cr continues to rise despite gentle hydration. 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 02/24: The patient failed trach collar trials yesterday. CPAP initiated this morning. Patient's urine output unchanged, with a liter of LR bolus yesterday. Creatinine slightly increased today. 02/25: The patient remained out of bed in the chair for approximately 3 hours today. The patient was bolused with 1 L of IV fluid, secondary to low urinary output. The patient failed T piece trials, lasting only 20 minutes. 02/26: The patient was bolused with a liter fluid yesterday, increased urine output overnight totaling 650 cc for 12 hours. Creatinine elevated. Renal consult, appreciate recommendations The patient's mentation was noted to be diminished this morning, ammonia level 41. Will begin lactulose. CPAP trials lasted 9 hours yesterday, unable to successfully perform T piece trial. Objective Vital Signs Date Time Temp Pulse Resp B/P Pulse Ox O2 Delivery O2 Flow Rate FiO2 02/27/16 14:00 103 02/27/16 12:00 98.0 18 123/71 92 02/27/16 12:00 60 02/27/16 07:00 Mechanical Ventilator Intake and Output 02/26/16 02/26/16 02/27/16 08:00 16:00 00:00 Intake Total 1141 ml 1972 ml 662 ml Output Total 429 ml 650 ml 445 ml Balance 712 ml 1322 ml 217 ml Result Diagram: 02/23/16 0332 02/27/16 0345 Imaging Last Impressions Chest X-Ray 02/11/16 0600 Signed Impressions: Service Date/Time: Thursday, February 11, 2016 05:41 - CONCLUSION: Rotated study demonstrating no significant interval change. Owen Arzola MD Upper Extremity Ultrasound 01/30/16 0000 Signed Impressions: Service Date/Time: Saturday, January 30, 2016 11:18 - CONCLUSION: Limited exam without thrombus identified. Raudel Mckinney MD FACR Thoracentesis 01/28/16 0000 Signed Impressions: Service Date/Time: Thursday, January 28, 2016 12:54 - CONCLUSION: Uncomplicated CT-guided thoracentesis. Ramone Hall MD Abdomen/Pelvis CT 01/23/16 0800 Signed Impressions: Service Date/Time: Saturday, January 23, 2016 09:05 - CONCLUSION: Relative to the prior study the marked distention of the stomach is reduced. There is a persistent 5 cm left upper quadrant sub-diaphragmatic fluid collection and drain in the left upper quadrant. Patient is post splenectomy. Jejunostomy is in place and ostomy is noted in the right lower abdomen. No free fluid or free air is appreciated and there is no evidence of obstruction. Bilateral pleural effusions persists small but slightly larger on the right with left lower lobe consolidation. Jared Medina MD ADDENDUM: I have reviewed the images with respect to her request made for left subdiaphragmatic drainage of a fluid collection. No fluid collection is observed within the left upper quadrant. There is residual splenic tissue that measures 5 cm in diameter with Hounsfield units 62. The stomach fundus extends up into the subdiaphragmatic location. No subdiaphragmatic fluid collection is observed. Surgical drains are noted. Osmar Chavez Jr., MD Chest CT 01/05/16 0000 Signed Impressions: Service Date/Time: Tuesday, January 05, 2016 23:15 - CONCLUSION: 1. Persistent left lower lobar consolidation. Improved consolidative infiltrates in the right lower lung. 2. Interval increase size bilateral pleural effusions , left greater than right. Osmar Alegria MD Celiac/Hepatic Arteriogram 12/27/15 0000 Signed Impressions: Service Date/Time: December 13:41 - CONCLUSION: 1. No active GI bleed identified. Robert Mckinney MD Abdomen X-Ray 12/18/15 0000 Signed Impressions: Service Date/Time: Friday, December 18, 2015 16:05 - CONCLUSION: Feeding tube tip is at the gastric antrum. Arnaldo Elias MD Head CT 12/02/15 1013 Signed Impressions: Service Date/Time: Wednesday, December 02, 2015 11:00 - CONCLUSION: 1. No intracranial abnormality is seen. 2. Air-fluid level in the right maxillary sinus. Arnaldo Reyes MD Last 24 hours Impressions Chest X-Ray 02/05/16 0600 Signed Impressions: Service Date/Time: Friday, February 05, 2016 04:11 - CONCLUSION: Worsening/developing effusions and basilar consolidation, currently left worse than right. Arnaldo Elias MD Objective Remarks GENERAL: Middle-aged chronically critically ill, lying in bed , awake, alert, interactive. HEENT: NCAT. mucous membranes moist. NECK: [address], no active bleeding, no evidence of infection. RESPIRATORY: Normal respiratory rate. Breath sounds present bilaterally, clear without wheezing or rhonchi. CARDIOVASCULAR: Regular, tachycardic. HR 110's. No murmurs rubs or gallops. GASTROINTESTINAL: J tube in place with tube feeds running @ 40cc/hr.Ostomy with brown colored stool approx 100cc MUSCULOSKELETAL: Pitting edema 2+ bilateral feet and hands. Gauze dressing bilateral upper extremity. Multiple open wounds in the lower extremity with gauze dressing. NEURO: Awake. Alert, interactive. RASS 0, CAM -. mouthing words. 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 Miller). - Trach exchanged 8.0 Shiley with cuff on 01/19 - DuoNeb q6h and as needed - Last CT guided thoracentesis 01/27 - CXR 02/11 unchanged - Lasix on hold since 02/23 - continue CPAP trials and trach collar trials as tolerated. continue IPPB therapy to help recruitment - FIO2 noted increased to .60, CXR in am Leukocytosis Bandemia-resolved - re-cultured 02/07 - Bands 6->1->11->2->1 (02/16) - ID following, Dr. Becerra - WBC 18->18 today Sputum Culture 02/12 Stenotrophomonas Maltophilia Sputum Culture 02/07 Stenotrophomonas Maltophilia Blood Culture 02/07 NGTD Urine Culture 02/02 neg NIGEL - on home CPAP - Tracheostomy Hyperkalemia-resolved Hypokalemia-resolved - hold Lasix today. continue free water flushes to 300cc q6h. UOP slightly improved overnight. - Replete electrolytes per ICU protocol - Kayexalate discontinued Hypernatremia-resolved - continue Free water flushes 300 q 6 hr - Avoiding nephrotoxins. - Monitor BMP -Creatinine 2.5-->2.7 Nephrology consulted, Perforated right colon with ischemic colitis - s/p ex-lap, extended right hemicolectomy with primary ileocolic anastamosis - s/p Ex lap 01/05 for bleeding gastric ulcer - management per general surgery - Open abdominal wound-2 small open areas of incision with continued packing, Primapore dressing BID to abdomen per general surgery. Granulation tissue Acute protein calorie malnutrition - severe -Albumin level 1.1 -Nutrition reconsulted, for recommendations regarding supplementation - Beneprotein discontinued 02/26 - Albumin level diminished, 1.1 - Jevity goal rate to 65/hr @ goal Chronic hepatitis C - s/p interferon/ribavirin years ago - Liver biopsy 04/14/08 - monitor for liver failure -02/14 Ammonia level 31, 02/25- 41,Lactulose TID -Diminished responsiveness, alertness albumin level 1.1, will decrease dosage of narcotics 03/20 increased free fraction of drug may be contributing to decreased alertness - LFT's in am Gastric ulcer disease - EGD 12/26/15 showed 2 large gastric ulcers with active bleeding - status post epinephrine infusion and cauterization - To OR 01/05 with GI bleeding and hemorrhagic shock. -S/P gastrotomy with ligation of gastric ulcer, lysis of adhesions - Continue Protonix 40 g IV q12h Acute Anemia - secondary to acute blood loss - Hgb stable, will transfuse for hemoglobin less than 7 - last transfused 1 unit PRBC 02/02 - No obvious active bleeding. - Ferrous Sulfate 300mg bid Thrombocytopenia-resolved - Monitor CBC - Hep PLT ab negative on 12/03 - due to chronic liver disease Hyperglycemia of Critical Illness - Monitor blood glucose per ICU protocol - Levemir BID on hold, not clinically indicated at this time - Low-dose insulin sliding scale DC Critical illness polyneuropathy -Continue PT daily, out of bed to chair, -functional maintenance of extremities 4 Open wounds,B/L upper extremities multiple stages -Reconsult wound care 02/11 B/L upper extremities -Digits on hand reddened and edematous-wound care consulted, Plastic reconsulted: debridement 02/21. Facial spasms/twitching -02/12 CT brain normal, possible left mastoiditis -Per ENT - mastoiditis to be followed up on outpatient basis -02/14 MRI brain: no acute disease. - EEG 02/12-mouth and facial twitching noted. The discharge could be of epileptiform significant, excessive artifact study limited. -02/15 Resolution of facial twitching -EEG 02/17 moderate diffuse encephalopathy possibly may be slight increased tendency for seizure. Noted bifrontal sharps and slow sharp complex noted -Neurology reconsulted for follow-up - per neurology, Keppra 500mg q12h. Urinary Retention: -- 02/16 Terazosin 5mg qhs. GI Prophylaxis: -- Protonix IV BID DVT Prophylaxis: - SCDs - No chemical DVT Prophylaxis, OOB to chair and daily functional maintenance of extremities x 4 ACCESS: --PIV x 2. Discuss [employer]NIFE CHANGER at bedside. Telephoned Mrs. Holcomb, discussed plan with decreasing narcotic administration, nephrology consult, and patient's current status. All questions answered. Level 2 Patient is now a DNR per his wishes as expressed by his family. Physician Fe Poloe Problem Qualifiers (1) Respiratory failure: Qualified Code: J96.00 - Acute respiratory failure, unspecified whether with hypoxia or hypercapnia (2) Altered mental status: Qualified Code: R41.0 - Delirium (3) Sepsis: Qualified Code: A41.9 - Sepsis, due to unspecified organism Fe Poole MD Feb 27, 2016 15:20
--- NOTE | 2016-02-27 15:59 | HHI.HCPN ---
Reason for visit a. To assist with evaluation and management of symptoms including: pain, malnutrition, wounds, AMS b. To assist medical decision maker(s) with: better understanding of current medical conditions; weighing benefits/burdens of medical treatment options; making medical treatment decisions. . Subjective/Interval History Patient seen and assessed in room 1317. Follow up visit for pain, malnutrition , AMS, wounds and goals. Daughter, Kezia , also present. Patient presents lying in bed,opens eyes only briefly to verbal stimuli. Afebrile. Decreased mentation noted. Ammonia level 41, lactulose ordered. Tolerated CPAP trial yesterday for approximately 9 hours, failed T-piece trail. Remains on vent today. FiO2 60%, rate 10, PEEP 5. Increased urine output overnight. BUN: 88, creatinine 2.70, GFR 25. Nephrology consulted. Given evidence of tendency for seizure activity on EEG recording and continued facial spasms and twitching, started on Keppra 02/21/16. Neurology continues to follow Patient has a history of chronic pain. Probable causes of plan include multiple surgeries, invasive lines, Sandoval, ostomy, NG tube, tracheostomy, immobility, wounds, bedbound status etc. On fentanyl patch 125mcg/h q3d and Oxycodone q 4 hours. Dilaudid and Acetaminophen available PRN for breakthrough pain. . Family/friend interactions Spoke with patient's daughter at patient's bedside this morning to update on patient's clinical condition and again this afternoon via telephone after speaking discussing patient with Dr. Poole. . Advance Directives Living Will: Never completed Health Care Surrogate: Never completed Durable Power of Machine Stitcher: Never completed Advance Directive Specifics Health Care Surrogate(s): There is no designated health care surrogate. Per [place] statutes, in the absence of written advanced directives healthcare proxy falls to the patient's , Gopi Smith. . Documented care wishes: None available , Objective Vital Signs Date Time Temp Pulse Resp B/P Pulse Ox O2 Delivery O2 Flow Rate FiO2 02/27/16 14:00 103 02/27/16 12:00 98.0 112 18 123/71 92 02/27/16 12:00 60 02/27/16 12:00 118 02/27/16 11:51 98 60 02/27/16 10:00 112 02/27/16 08:12 100 60 02/27/16 08:00 98.4 98 18 99/56 96 02/27/16 08:00 98 02/27/16 08:00 60 02/27/16 07:00 94 Mechanical Ventilator 60 02/27/16 06:00 96 02/27/16 04:00 60 02/27/16 04:00 97.6 110 18 103/55 96 02/27/16 04:00 110 02/27/16 03:54 94 60 02/27/16 02:00 116 02/27/16 00:51 95 60 02/27/16 00:00 60 02/27/16 00:00 116 02/27/16 00:00 98.2 116 11 124/64 94 02/26/16 22:00 120 02/26/16 20:33 94 60 02/26/16 20:00 60 02/26/16 20:00 92 Mechanical Ventilator 60 02/26/16 20:00 106 02/26/16 20:00 97.7 106 24 103/56 92 02/26/16 16:00 50 Intake & Output 02/27/16 02/27/16 07:00 19:00 Intake Total 1554 ml 845 ml Output Total 870 ml 500 ml Balance 684 ml 345 ml IV Total 134 ml 60 ml Tube Feeding 470 ml 485 ml Other 950 ml 300 ml Output Urine Total 650 ml 300 ml Stool Total 220 ml 200 ml . Physical Exam CONSTITUTIONAL/GENERAL: This is a frail chroncially ill middle-aged male patient on vent, in no acute distress. TUBES/LINES/DRAINS: PIV 1, ostomy, trach, Sandoval, J tube SKIN: Skin appears thin and fragile. HEAD: Atraumatic. Normocephalic. EYES: No injection or drainage. No sclerae icterus. ENT: Hearing appears normal. Nose without bleeding or purulent drainage. NECK: Trachea midline. CARDIOVASCULAR: Regular rate and rhythm RESPIRATORY/CHEST: Breath coarse breath sounds bilaterally. GASTROINTESTINAL: Ostomy with brown colored stool. GENITOURINARY: Without palpable bladder distension. Sandoval catheter in place. MUSCULOSKELETAL: Extremities without clubbing or cyanosis. Atrophy. Pitting edema +2/+3, bilateral hands and feet. NEUROLOGICAL: Remains encephalopathic, opens eyes only briefly to verbal stimuli. . Diagnostic Tests Laboratory Laboratory Tests Test 02/24/16 02/24/16 02/25/16 02/26/16 16:50 17:01 03:42 04:06 Urine Color YELLOW (YELLW/STRAW) Urine Turbidity HAZY (CLEAR) Urine pH 8.0 (5.0-8.5) Urine Specific [place] 1.013 (1.002-1.035) Urine Protein 100 mg/dL (NEG-TRACE) Urine Glucose (UA) NEG mg/dL (NEG) Urine Ketones NEG mg/dL (NEG) Urine Occult Blood SMALL (NEG) Urine Nitrite NEG (NEG) Urine Bilirubin NEG (NEG) Urine Urobilinogen LESS THAN 2.0 MG/DL (LESS THAN 2.0) Urine Leukocyte Esterase SMALL (NEG) Urine RBC 4 /hpf (0-3) Urine WBC 19 /hpf (0-5) Urine Squamous Epithelial 2 /hpf (0-5) Cells Urine Calcium Oxalate Crystals RARE /hpf (NONE) Urine Bacteria RARE /hpf (NONE) Urine Hyaline Casts 1 /lpf (RARE) Urine Mucus FEW /lpf (OCC) Microscopic Urinalysis Comment Urine Eosinophils NONE SEEN /HPF (NONE SEEN) Urine Random Creatinine 15.9 MG/DL Urine Random Sodium 29 MEQ/L Urine Random Urea 824 mg/dL (()) Urine Random Urea/Creatinine 45.78 mg/mg Ratio (()) Urine Creatinine 18 mg/dL (()) Sodium Level 136 MEQ/L 136 MEQ/L 136 MEQ/L (136-145) (136-145) (136-145) Potassium Level 4.8 MEQ/L 5.1 MEQ/L 5.0 MEQ/L (3.5-5.1) (3.5-5.1) (3.5-5.1) Chloride Level 100 MEQ/L 100 MEQ/L 98 MEQ/L (98-107) (98-107) (98-107) Carbon Dioxide Level 26.8 MEQ/L 27.4 MEQ/L 25.9 MEQ/L (21.0-32.0) (21.0-32.0) (21.0-32.0) Anion Gap 9 MEQ/L (5-15) 9 MEQ/L (5-15) 12 MEQ/L (5-15) Blood Urea Nitrogen 74 MG/DL (7-18) 74 MG/DL (7-18) 78 MG/DL (7-18) Creatinine 2.20 MG/DL 2.36 MG/DL 2.55 MG/DL (0.60-1.30) (0.60-1.30) (0.60-1.30) Estimat Glomerular Filtration 31 ML/MIN (>89) 29 ML/MIN (>89) 27 ML/MIN (>89) Rate Random Glucose 152 MG/DL 104 MG/DL 141 MG/DL (74-106) (74-106) (74-106) Calcium Level 9.2 MG/DL 9.5 MG/DL 8.9 MG/DL (8.5-10.1) (8.5-10.1) (8.5-10.1) Total Bilirubin 0.3 MG/DL (0.2-1.0) Direct Bilirubin 0.2 MG/DL (0.0-0.2) Indirect Bilirubin 0.1 MG/DL (0.0-0.8) Aspartate Amino Transf 44 U/L (15-37) (AST/SGOT) Alanine Aminotransferase 16 U/L (12-78) (ALT/SGPT) Alkaline Phosphatase 362 U/L (45-117) Ammonia 41 MCMOL/L (11-32) Total Protein 5.4 GM/DL (6.4-8.2) Albumin 1.1 GM/DL (3.4-5.0) Test 02/27/16 03:45 Sodium Level 136 MEQ/L (136-145) Potassium Level 5.1 MEQ/L (3.5-5.1) Chloride Level 99 MEQ/L (98-107) Carbon Dioxide Level 23.9 MEQ/L (21.0-32.0) Anion Gap 13 MEQ/L (5-15) Blood Urea Nitrogen 88 MG/DL (7-18) Creatinine 2.70 MG/DL (0.60-1.30) Estimat Glomerular Filtration 25 ML/MIN (>89) Rate Random Glucose 103 MG/DL (74-106) Calcium Level 8.9 MG/DL (8.5-10.1) . Result Diagram: 02/23/16 0332 02/27/16 0345 Procedures 12/02/15: Intubated 12/02/15: NG tube placed 12/02/15: Right subclavian central line placed 12/14/15: Left IJ central line placement BEV PEG tube Ileostomy 12/28/15: Tracheostomy 12/30/15: Right subclavian central venous line placed 01/05/16: Right axillary arterial line placement 01/05/16: Right IJ central line placement 01/05/16: Bronchoscopy 01/17/16: EGD . . . 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 Probable causes of plan include multiple surgeries, invasive lines, Sandoval, ostomy, NG tube, tracheostomy , immobility, wounds, bedbound status etc. On fentanyl patch 125mcg/h q3d. and Oxycodone q4 hours ATC. Dilaudid and Acetaminophen available as needed for breakthrough pain. . (2) Malnutrition 0-10 Scale: Unable to quantify Comment: . (3) Wounds, multiple Comment: Patient taken to the OR for debridement on 02/22/16. Dressings on bilateral upper extremities remain clean, dry and intact. Per Plastic Surgery ( ADD[facility] Crum) follow up exam today, wounds are healing well without drainage, odor or any other indications of infection. No significant change in edema noted. . (4) Altered mental status 0-10 Scale: Unable to quantify (He is awake but appears "out of it". He does not attempt to respond to questions by mouthing words. Spoke with Dr. Poole regarding patient's altered mental status. CT head today showed no acute intracranial abnormalities, new opacification of the left mastoid air cells, clinical evaluation for acute left mastoiditis suggested. Ammonia level at 31. EEG pending.) Comment: Patient started on Keppra 500 mg 2 times daily 02/21/16, given evidence of tendency for seizure activity on EEG recording. 02/26/15: Decreased mentation today. Ammonia level 41- Lactulose ordered. Neurology continues to follow. Pertinent Non-Medical Issues Psychosocial:Patient was born in [facility], moving to [place] at a young age. He has 2 siblings who live locally (Feroz and Janeen). 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 The patient met his current (Gopi Smith) through mutual friends and they have now been for approximately 20 years. The patient has 1 adult daughter (Kezia) from a previous relationship. She is 30 years old. Spiritual:No zoroastrian affiliation Legal: There is no designated health care surrogate. Per [place] statutes, in the absence of written advanced directives healthcare proxy falls to the patient 's , Gopi Smith. Ethical issues impacting care: None at this time. . Important Contacts Gopi Smith, spouse: [phone] Kezia Starks, daughter: [phone] . . Prognosis Patient is a 55 year old male with a long history of chronic illnesses. PMH is significant for Hep C, NIGEL, gout, RA, HTN, chronic pain, and migraines. Patient was admitted on 12/02/15 with sepsis due to Staph Aureus hand infection and E. Coli bacteriemia. Patient has been to the OR multiple times for GI bleed. Patient has had persistent anemia/thrombocytopenia requiring multiple transfusions. S/p tracheotomy, ileostomy, BEV 2, and G- tube, patient remains critically ill with an overall poor prognosis. . Code Status: No Code Plan * NO CODE * Decision-making: The patient is currently not capacitated to participate in decisions related to medical treatment goals. There is no designated health care surrogate. Per [place] statutes, in the absence of written advanced directives healthcare proxy falls to the patient's . HCP: GOPI SMITH ( ). * Goals: GOALS REMAIN AGGRESSIVE. However, patient's daughter and agree the patient would not want to be kept alive on machines. They do not feel he is at the point where they need to consider stopping care because he has "gotten through so much are ready" * Discussed with Dr. Poole * Spoke with patient's daughter at patient's bedside this morning to update on patient's clinical condition and again this afternoon via telephone after speaking discussing patient with Dr. Poole. * Increased urine output overnight. BUN: 88, creatinine 2.70, GFR 25. Nephrology consulted. * Symptom managementpain: Patient has a history of chronic pain. Probable causes of plan include multiple surgeries, invasive lines, Sandoval, ostomy, NG tube, tracheostomy, immobility, wounds, bedbound status etc. On fentanyl patch 125mcg/h q3d. PRN Dilaudid and oxycodone available, being sparingly used. * Symptom managementwounds: To OR 01/21/17 for wound debridement. Dressings on bilateral upper extremities remain clean, dry and intact. * Symptom management- confusion: Patient started on Keppra 500 mg 2 times daily 02/21/16, given evidence of tendency for seizure activity on EEG recording. : Decreased mentation today. Ammonia level 41- Lactulose ordered. Neurology continues to follow. * Palliative care will continue to follow this patient throughout his hospitalization to establish trust, assist with symptom management and clarification of medical treatment goals. . Attestation To help prompt me to consider important information that might be impacting today's encounter and assessment, information from prior notes written by myself or my colleagues may have been "brought forward" into today's note. My signature on this note, however, is an attestation that I personally performed the exam, history, and/or decision-making noted today, and, unless otherwise indicated, the interactions with patient, family, and staff as well as the review of records all occurred today. I also attest that the listed assessment and stated plan reflect my best clinical judgment today based on the combination of historical information, prior notes, and today's exam/ interactions. When time spent is documented, it refers only to time spent today by the signer, or if indicated, combined time spent today by collaborating physician/nurse practitioner. . Leah Pop Feb 27, 2016 15:59
[2016-02-27] MEDS: LACTULOSE SYRUP 20 GM/30 ML CUP PO SCH (16:54)
[2016-02-27] MEDS: SODIUM CHLORIDE 0.9% FLUSH 5 ML FLUSH IVF PRN (16:55)
--- NOTE | 2016-02-27 17:11 | PD.CONS ---
[facility] Service Nephrology Consult Requested By Reason for Consult Elevated creatinine Primary Care Physician Ramone Villa MD History of Present Illness This is a 55 y/o male patient that was admitted December 01. He has been treated for necrotizing fascitis with multiple surgical procedures listed below. Since admission he had a trach and PEG placed. He is still on a ventilator. He has an ileostomy. Creatinine was normal until 02/18, when it was 1.2, which has increased to 2.7. He was started on IVF, but has had no improvement, they since have been discontinued. He is currently on ceftazidime, plastics and palliative care following, he has been made a DNR. We were consulted for management. There has been no exposure to IV contrast, no NSAIDs given. (Rivka Harrison) Review of Systems ROS Limitations: Clinical Condition, Altered Mental Status (Rivka Harrison) Past Family Social History Allergies: Coded Allergies: Compazine (Verified Allergy, Severe, VOMITING, RASH, 08/26/14) SLURRED SPEECH, MIGRAINES Demerol (Verified Allergy, Severe, VOMITING, 08/26/14) Levaquin (Verified Allergy, Severe, 08/26/14) Penicillin (Verified Allergy, Severe, Rash, 08/26/14) Phenergan (Verified Allergy, Severe, VOMITING, 08/26/14) Uncoded Allergies: ANTI-CONVULSIVES (Allergy, Severe, MIGRAINES, SLURRED SPEECH,, 01/23/14) Past Medical History Hepatitis C virus acquired in 1978 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 donated blood Obstructive sleep apnea Gout Rheumatoid arthritis Hypertension Chronic low back pain Obstructive sleep apnea and wears 1 L oxygen at night Chronic migraines Osteopenia History of peritonitis in 1978 after splenectomy for trauma Past Surgical History 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 Anterior cruciate ligament repair left knee Hip fracture repair Liver biopsy During this hospitalization:12/02/15: Intubated 12/02/15: NG tube placed 12/02/15: Right subclavian central line placed 12/14/15: Left IJ central line placement BEV PEG tube Ileostomy 12/28/15: Tracheostomy 12/30/15: Right subclavian central venous line placed 01/05/16: Right axillary arterial line placement 01/05/16: Right IJ central line placement 01/05/16: Bronchoscopy 12/1/16: EGD Reported Medications Hctz (Hydrochlorothiazide) 25 Mg Tab 25 Mg PO DAILY Ibuprofen 800 Mg Tab 800 Mg PO BID 14 Days Deltasone 5 mg Tab (Prednisone) 5 Mg Tab 5 Mg PO DIRECTED Titrating Dose [Potassium Citrate] 99 Mg PO DAILY Morphine Sulfate Er (Morphine Sulfate) 30 Mg Tab 30 Mg PO TID 14 Days Lisinopril 20 mg (Lisinopril) 20 Mg Tab 20 Mg PO BID Oxygen (O2) (Miscellaneous Medication) Inha 1 L INH HS Allopurinol 300 Mg Tab 600 Mg PO DAILY Methadone Hcl (Methadone HCl) 10 Mg Tab 10 Mg PO BID Active Ordered Medications Current Medications Medications (Trade) Dose Ordered Sig/[place]ilton Route Start Time Stop Time Status Last Admin (NS Flush) 2 ml UNSCH PRN IVF 12/02/15 10:15 02/27/16 16:55 Miscellaneous Information 1 Q361D XX 12/02/15 13:45 (Chlorhexidine 2% Cloth) Taper DAILY@04 TOP 12/03/15 04:00 11/28/16 03:59 02/22/16 04:00 (Chlorhexidine 2% Cloth) 3 pack UNSCH PRN TOP 12/02/15 13:45 (Peridex 0.12% Liq) 15 ml BID@08,20 MT 12/06/15 20:00 02/27/16 08:12 (Betadine 10% Oint) 1 applic DAILY TOPICAL 12/12/15 15:00 02/26/16 09:00 (Dilaudid Pf Inj) 2 mg Q2H PRN IV PUSH 12/16/15 14:00 02/26/16 10:30 (Neosporin Oint) 1 applic Q12HR TOPICAL 01/03/16 21:00 02/26/16 20:10 (Ferrous Sulfate Liq) 300 mg BID TUBE 01/16/16 21:00 02/27/16 08:09 (Protonix Inj) 40 mg Q12H IV PUSH 01/18/16 06:00 02/27/16 16:53 (Silvadene 1% Cream (400 Gm)) 1 applic DAILY TOPICAL 01/23/16 12:30 02/26/16 09:00 (Trandate Inj) 20 mg Q2H PRN IV 01/23/16 18:30 02/02/16 16:38 (Apresoline Inj) 20 mg Q4H PRN IV PUSH 01/24/16 02:15 01/29/16 17:36 (Tylenol 650 Mg/ 20 ml Liq) 650 mg Q6H PRN TUBE 01/27/16 08:30 02/16/16 12:46 (Duragesic 100 Mcg Patch.72 Hr) 1 patch Q3D TD 01/27/16 17:00 02/29/16 16:59 02/26/16 16:43 (Duragesic 25 Mcg Patch.72 Hr) 1 patch Q3D TD 01/27/16 17:00 02/29/16 16:59 02/26/16 16:42 Miscellaneous Information 1 Q3D TD 01/27/16 17:00 02/29/16 16:59 02/26/16 17:00 Miscellaneous Information 1 Q3D TD 01/27/16 17:00 02/29/16 16:59 02/26/16 17:00 (Lopressor Inj) 5 mg Q6H PRN IV PUSH 01/29/16 01:45 01/29/16 01:51 (Lopressor) 75 mg Q6H TUBE 02/01/16 12:00 02/27/16 16:56 (Zofran Inj) 4 mg Q8H PRN IV PUSH 02/04/16 16:00 02/27/16 12:40 (Lasix Inj) 10 mg Q6H IV PUSH 02/07/16 09:00 Hold 02/23/16 16:11 (Hytrin) 5 mg HS PO 02/17/16 21:00 02/26/16 20:10 Levetriacetam 500 mg 500 mg Q12HR PO 02/21/16 15:15 02/27/16 08:08 (Fortaz Inj/NS Inj) 100 ml @ 200 mls/hr Q12H IV 02/24/16 00:00 02/27/16 00:08 (Free Water) 300 ml Q6H G-TUBE 02/23/16 21:00 02/27/16 15:00 (Theragran) 1 tab DAILY G-TUBE 02/28/16 09:00 (Lactulose Liq) 30 ml TID PO 02/27/16 18:00 02/27/16 16:54 (Roxicodone Intensol Liq) 5 mg Q4H PO 02/27/16 17:00 02/27/16 16:54 (Duragesic 75 Mcg Patch.72 Hr) 1 patch Q3D TD 02/29/16 17:00 Miscellaneous Information 1 Q3D TD 03/03/16 17:00 Family History No hx of renal disorders Social History , formerly living in private home no smoking hx he is a DNR (Rivka Harrison) Physical Exam Vital Signs Vital Signs Date Time Temp Pulse Resp B/P Pulse Ox O2 Delivery O2 Flow Rate FiO2 02/27/16 14:00 103 02/27/16 12:00 98.0 112 18 123/71 92 02/27/16 12:00 60 02/27/16 12:00 118 02/27/16 11:51 98 60 02/27/16 10:00 112 02/27/16 08:12 100 60 02/27/16 08:00 98.4 98 18 99/56 96 02/27/16 08:00 98 02/27/16 08:00 60 02/27/16 07:00 94 Mechanical Ventilator 60 02/27/16 06:00 96 02/27/16 04:00 60 02/27/16 04:00 97.6 110 18 103/55 96 02/27/16 04:00 110 02/27/16 03:54 94 60 02/27/16 02:00 116 02/27/16 00:51 95 60 02/27/16 00:00 60 02/27/16 00:00 116 02/27/16 00:00 98.2 116 11 124/64 94 02/26/16 22:00 120 02/26/16 20:33 94 60 02/26/16 20:00 60 02/26/16 20:00 92 Mechanical Ventilator 60 02/26/16 20:00 106 02/26/16 20:00 97.7 106 24 103/56 92 Physical Exam Middle aged male, awake but unresponsive he has a trach, is on the ventilator very course lung sounds throughout S1/S2, regular rhythm, tachycardic Abd: multiple surgical wounds, ileostomy right LQ, J tube left quad Ext: lower extremities with dependent edema, multiple scabs upper extremities: right dressing elbow distal; left lower arm dressing in place ; edema present scrotal edema present Laboratory Laboratory Tests Test 02/27/16 03:45 Sodium Level 136 Potassium Level 5.1 Chloride Level 99 Carbon Dioxide Level 23.9 Anion Gap 13 Blood Urea Nitrogen 88 Creatinine 2.70 Estimat Glomerular Filtration 25 Rate Random Glucose 103 Calcium Level 8.9 (Rivka Harrison) Result Diagram: 02/23/16 0332 02/27/16 0345 Imaging Last Impressions Renal Ultrasound 02/24/16 0000 Signed Impressions: Service Date/Time: Wednesday, February 24, 2016 19:13 - CONCLUSION: 1. Multiple calcified nonobstructing left renal calculi. The patient's known right renal calculi are not well visualized sonographically. 2. Simple cyst within the lower pole of the right kidney measuring 2.4 cm in size. 3. No hydronephrosis or solid renal mass. 4. Poor visualization of the urinary bladder due to non distension. 5. Probable sludge ball within the gallbladder measuring 4.6 x 4.0 x 2.8 cm. Foster Ferreira MD Brain MRI 02/15/16 0000 Signed Impressions: Service Date/Time: Monday, February 15, 2016 12:16 - CONCLUSION: Minimal chronic fluid in right mastoid air cells toward the tip. New fluid in air cells of the left mastoid suggesting mastoiditis. Intracranially negative other than some minimal deep white matter and periventricular probable microvascular ischemic demyelinization.. Jared Medina MD Chest X-Ray 02/13/16 0600 Signed Impressions: Service Date/Time: Saturday, February 13, 2016 04:25 - CONCLUSION: 1. No significant change. Consolidative opacity remains in the left lung base which could represent infiltrate and/or effusion. 2. Cardiomegaly is again noted. Owen Arzola MD Head CT 02/13/16 0000 Signed Impressions: Service Date/Time: Saturday, February 13, 2016 12:12 - CONCLUSION: 1. No acute intracranial abnormality. 2. New opacification of the left mastoid air cells. Clinical evaluation for acute left mastoiditis suggested. Osmar Chavez Jr., MD Upper Extremity Ultrasound 01/30/16 0000 Signed Impressions: Service Date/Time: Saturday, January 30, 2016 11:18 - CONCLUSION: Limited exam without thrombus identified. Raudel Mckinney MD FACR Thoracentesis 01/28/16 0000 Signed Impressions: Service Date/Time: Thursday, January 28, 2016 12:54 - CONCLUSION: Uncomplicated CT-guided thoracentesis. Ramone Hall MD Abdomen/Pelvis CT 01/23/16 0800 Signed Impressions: Service Date/Time: Saturday, January 23, 2016 09:05 - CONCLUSION: Relative to the prior study the marked distention of the stomach is reduced. There is a persistent 5 cm left upper quadrant sub-diaphragmatic fluid collection and drain in the left upper quadrant. Patient is post splenectomy. Jejunostomy is in place and ostomy is noted in the right lower abdomen. No free fluid or free air is appreciated and there is no evidence of obstruction. Bilateral pleural effusions persists small but slightly larger on the right with left lower lobe consolidation. Jared Medina MD ADDENDUM: I have reviewed the images with respect to her request made for left subdiaphragmatic drainage of a fluid collection. No fluid collection is observed within the left upper quadrant. There is residual splenic tissue that measures 5 cm in diameter with Hounsfield units 62. The stomach fundus extends up into the subdiaphragmatic location. No subdiaphragmatic fluid collection is observed. Surgical drains are noted. Osmar Chavez Jr., MD Chest CT 01/05/16 0000 Signed Impressions: Service Date/Time: Tuesday, January 05, 2016 23:15 - CONCLUSION: 1. Persistent left lower lobar consolidation. Improved consolidative infiltrates in the right lower lung. 2. Interval increase size bilateral pleural effusions , left greater than right. Osmar Alegria MD Celiac/Hepatic Arteriogram 12/27/15 0000 Signed Impressions: Service Date/Time: December 13:41 - CONCLUSION: 1. No active GI bleed identified. Robert Mckinney MD Abdomen X-Ray 12/18/15 0000 Signed Impressions: Service Date/Time: Friday, December 18, 2015 16:05 - CONCLUSION: Feeding tube tip is at the gastric antrum. Arnaldo Elias MD (Rivka Harrison) Assessment and Plan Problem List: (1) Acute renal failure Plan: in a pt with normal renal function on 02/18 his urine output has been dropping renal US negative, matos in place urine eosinophils negative DEIRDRE may be from sepsis, will obtain urine electrolytes to evaluate FeNa obtain repeat UA for analysis, quantify protein he is edematous, will begin diuresis and monitor effect, bumex 1 mg IV BID CXR to evaluate for fluid overload K 5.1, monitor for now renal panel in am avoid nephrotoxins maintain MAP > 65 mmHg (2) Necrotizing fasciitis Plan: s/p multiple debridement continue would care, pain control he is a DNR, palliative care following (Rivka Harrison) Problem List: (1) Acute renal failure (2) Necrotizing fasciitis (3) Sepsis (4) Respiratory failure (5) Hyperammonemia (6) Encephalopathy Assessment and Plan patient was seen and examined. History and chart reviewed. Discussed with RN. DEIRDRE appears to have developed between 02/18 and 02/19, since then progressive azotemia. Etiology is unclear, but may have allergic interstitial nephritis. Urine eosinophil is neither specific nor sensitive in aiding this diagnosis. It is noted that he does indeed have peripheral eosinophilia. He has been on Ceftazidime for about 2 weeks. Prior to this, he was on Cefepime , and earlier had received Aztreonam. Clinically has some signs of volume overload. Diuresis. Consider stopping all non essential medications and if possible changing antibiotics. Prognosis is guarded to poor. (Jose Jauregui MD) Problem Qualifiers (1) Acute renal failure: Qualified Code: N17.9 - Acute renal failure, unspecified acute renal failure type (2) Sepsis: Qualified Code: A41.9 - Sepsis, due to unspecified organism (3) Respiratory failure: Qualified Code: J96.00 - Acute respiratory failure, unspecified whether with hypoxia or hypercapnia Rivka Harrison Feb 27, 2016 17:11 Jose Jauregui MD Feb 27, 2016 18:38
[2016-02-27] MEDS ORDERED: fentaNYL 25 MCG/HR PATCH TD ONE (18:00)
[2016-02-27] MEDS ORDERED: fentaNYL 100 MCG/HR PATCH TD ONE (18:00)
[2016-02-27] MEDS: BUMETANIDE INJ 1 MG/4 ML VIAL IV PUSH SCH (18:06)
--- NOTE | 2016-02-27 18:16 | RADRPT ---
EXAM DATE/TIME: 02/27/2016 17:49 [place] COMPARISON: CHEST SINGLE AP, February 13, 2016, 4:25. INDICATIONS : Congestion MEDICAL HISTORY : Hypertension. SURGICAL HISTORY : Tracehostomy ENCOUNTER: Subsequent ACUITY: 1 month PAIN SCORE: Non-responsive. LOCATION: Bilateral chest FINDINGS: A single view of the chest demonstrates consolidation left upper lobe and left lower lobe. Probable l eft pleural effusion. Minimal patchy densities right lower lobe. Heart enlarged. Tracheostomy tube un changed. The cardiomediastinal contours are unremarkable. Osseous structures are intact. CONCLUSION: 1. Left upper and left lower lobe consolidation. This could be pneumonia with probable small pleural effusion. 2. Minimal patchy densities right lower lobe. Wojciech Lockhart MD on February 27, 2016 at 18:13 Board Certified Radiologist. This report was verified electronically.
[2016-02-27] MEDS: TERAZOSIN HCL 5 MG CAP PO SCH (20:52)
[2016-02-27 23:14] LABS: CREATININE RANDOM URINE LESS THAN 13 MG/DL (27-300)
[2016-02-27 23:25] LABS: BACTERIA, URINE RARE /hpf; COMMENT (UR) CULTURE INDICATED; CULTURE IF INDICATED CULTURE INDICATED; MUCUS URINE FEW /lpf (OCC); RENAL EPITHELIAL CELLS <1 /hpf; SQUAMOUS EPITHELIAL CELL URINE <1 /hpf (0-5)
[2016-02-27 23:43] LABS: MICROALBUMIN/CREAT RATIO RAND 4800 MG/G CRE (0-30)
[2016-02-28] VITALS (18 sets, daily range): BP systolic 104–135; BP diastolic 53–75; PULSE 86–112; RESP 16–28; TEMP 97.6–98.9; O2SAT 95–100
[2016-02-28] MEDS: oxyCODONE HCL ORAL CONC 20 MG/ML SYRINGE PO SCH ×6 (00:42→20:26)
[2016-02-28] MEDS: cefTAZidime INJ 2,000 MG in SODIUM CHLORIDE 0.9% INJ 100 ML IV SCH ×2 (00:42→10:47)
[2016-02-28] MEDS: METOPROLOL TARTRATE 25 MG TAB TUBE SCH ×4 (00:42→17:59)
[2016-02-28 01:13] LABS: BLOOD, URINE TRACE (NEG); GLUCOSE,URINE NEG (NEG); KETONE, URINE NEG (NEG); NITRITE,URINE NEG (NEG); URINE COLOR YELLOW (YELLW/STRAW)
[2016-02-28] MEDS: CHLORHEXIDINE GLUCONATE 2 % 1 PACK (2 CLOTHS) TOP SCH (03:28)
[2016-02-28] MEDS: FREE WATER G-TUBE SCH ×4 (03:28→19:20)
[2016-02-28 04:29] LABS: INDIRECT BILIRUBIN 0.2 MG/DL (0.0-0.8); TOTAL BILIRUBIN ADULT 0.4 MG/DL (0.2-1.0)
[2016-02-28] MEDS: PANTOPRAZOLE SODIUM 40 MG VIAL IV PUSH SCH ×2 (05:08→17:59)
[2016-02-28] MEDS: CHLORHEXIDINE 0.12% (ORAL KIT) 15 ML CUP MT SCH ×2 (08:00→20:26)
[2016-02-28] MEDS: BUMETANIDE INJ 1 MG/4 ML VIAL IV PUSH SCH ×2 (08:04→17:59)
[2016-02-28] MEDS: LACTULOSE SYRUP 20 GM/30 ML CUP PO SCH ×3 (08:04→17:59)
[2016-02-28] MEDS: levETIRAcetam 500 MG/5 ML UDC PO SCH ×2 (08:04→20:26)
[2016-02-28] MEDS: FERROUS SULFATE 300 MG /5ML UDC TUBE SCH ×2 (08:04→20:26)
[2016-02-28] MEDS: SILVER SULFADIAZINE 1% CR 400 GM JAR TOPICAL SCH (09:00)
[2016-02-28] MEDS: MULTIVITAMIN TAB G-TUBE SCH (09:00)
[2016-02-28] MEDS: POVIDONE IODINE 10% OINT 30 GM TUBE TOPICAL SCH (09:00)
[2016-02-28] MEDS: NEOMYCIN/POLYMYXIN/BACITRACIN OINT 15 GM TUBE TOPICAL SCH ×2 (09:00→20:27)
[2016-02-28 11:07] LABS: BICARBONATE 25.5 MEQ/L (21.0-32.0); POTASSIUM 5.1 MEQ/L (3.5-5.1)
--- NOTE | 2016-02-28 12:15 | HHI.NPPN ---
Subjective Renal Failure: Acute Interval History Renal function is worse. Edema improved with Bumex. Good urine output. ( Rivka Harrison) Review of Systems General General Remarks unable to obtain (Rivka Harrison) Objective Data Data 02/27/16 02/28/16 19:00 07:00 Intake Total 845 ml 1630 ml Output Total 500 ml 1250 ml Balance 345 ml 380 ml IV Total 60 ml 273 ml Tube Feeding 485 ml 757 ml Other 300 ml 600 ml Output Urine Total 300 ml 750 ml Stool Total 200 ml 500 ml # Bowel Movements 1 Vital Signs Date Time Temp Pulse Resp B/P Pulse Ox O2 Delivery O2 Flow Rate FiO2 02/28/16 11:02 100 60 02/28/16 09:37 60 02/28/16 08:00 60 02/28/16 08:00 94 02/28/16 08:00 97.7 94 19 104/53 100 02/28/16 07:58 100 60 02/28/16 07:00 100 Mechanical Ventilator 60 02/28/16 06:00 94 02/28/16 04:18 95 60 02/28/16 04:00 98.3 100 16 104/53 98 02/28/16 04:00 100 02/28/16 04:00 60 02/28/16 02:00 98 02/28/16 00:44 97 60 02/28/16 00:00 98.9 112 22 110/59 97 02/28/16 00:00 60 02/28/16 00:00 112 02/27/16 22:00 112 02/27/16 20:00 60 02/27/16 20:00 99.3 104 24 108/51 96 02/27/16 20:00 104 02/27/16 19:38 96 60 02/27/16 19:00 96 Mechanical Ventilator 60 02/27/16 18:00 100 02/27/16 16:59 96 60 02/27/16 16:00 60 02/27/16 16:00 108 02/27/16 16:00 98.4 100 18 123/57 93 02/27/16 14:00 103 (Rivka Harrison) -: 02/28/16 1030 Microbiology 02/27/16 Urine Culture, Received Pending Imaging Last 72 hours Impressions Chest X-Ray 02/27/16 1722 Signed Impressions: Service Date/Time: Saturday, February 27, 2016 17:49 - CONCLUSION: 1. Left upper and left lower lobe consolidation. This could be pneumonia with probable small pleural effusion. 2. Minimal patchy densities right lower lobe. Wojciech Lockhart MD Tubes & Lines: [place] Tubes & Lines Comment J tube, (Rivka Harrison B. [employer] OF [employer]OTIONALLY [employer]) Physical Exam General Appearance: No Acute Distress, Comfortable (Rivka Harrison B. [employer]ION[employer]) Throat Throat Exam: Oral Mucosa [place] & Moist (Dexter Harrisonon B. [employer]ION[employer]) Pulmonary Resp Exam: Crackles, Rhonchi, Decreased Bases (Rivka Harrison B. [employer]ION[employer]) Cardiology CV Exam: Regular, Normal Sinus Rhythm (Rivka Harrison B. [employer]ION[employer]) Gastrointestinal/Abdomen GI Exam: Soft, Non-Tender GI Remarks mutiple surgical wounds mid abdomin, ileostomy right abdomen (Rivka Harrison B. [employer]) Musculoskeletal MS Exam: Joints Intact, Atrophy (Rivka Harrison B. [employer]ION[employer]) Integumentary Skin Exam: Warm, Dry (Dexter Harrisonon B. [employer]ION[employer]) Extremeties Extremities Exam: Pedal Pulses Palpable, Moderate Edema (Dexter Harrisonon B. [employer]) Neurologic Neuro Exam: Awake, Unresponsive Neuro Remarks minimal movement, does not follow commands (Dexter Harrisonon B. [employer]ION[employer]) VTE Prophylaxis Device: SCDs (HunterRivka B. [employer]IONALLY [employer]) Assessment/Plan Assessment Summary: DEIRDRE/Acute Renal Failure Problem List: (1) Acute renal failure Plan: Renal function is worse, no hx of impairment unknown etiology of DEIRDRE, may be prerenal from sepsis, AIN, may progress to ATN nearly 5 g proteinuria, will order serum protein electrophoresis and serologies K 5.1, monitor for now he still is edematous, will continue bumex, he has had good response on ceftazidime, consider changing Antibiotic therapy daily renal telemetry monitor output, electrolytes avoid nephrotoxins, minimize medications if able his prognosis is guarded to poor, likely would not do well on dialysis he is a DNR, palliative care following, unsure of goal at this time, will attempt to speak with family (2) Necrotizing fasciitis Plan: ID and plastics following s/p I&D of arms pain control, wound care (3) Respiratory failure Plan: respiratory services appreciated remains on ventilator (4) Sepsis Plan: continue Antibiotic therapy he has pneumonia on CXR (5) Hyperammonemia (6) Encephalopathy (Rivka Harrison) Problem List: (1) Acute renal failure Plan: Renal function is worse, no hx of impairment unknown etiology of DEIRDRE, ATN from sepsis, or allergic interstitial nephritis are likely possibilities. It is noted that he has eosinophilia. nearly 5 g proteinuria, will order serum protein electrophoresis and serologies K 5.1, monitor for now he still is edematous, will continue bumex, he has had good response on ceftazidime, consider changing Antibiotic therapy daily renal telemetry monitor output, electrolytes avoid nephrotoxins, minimize medications if able, change antibiotic if possible. If renal function worsens tomorrow, stop diuretic. his prognosis is guarded to poor, likely would not do well on dialysis he is a DNR, palliative care following, unsure of goal at this time, will attempt to speak with family (2) Necrotizing fasciitis Plan: ID and plastics following s/p I&D of arms pain control, wound care (3) Respiratory failure Plan: respiratory services appreciated remains on ventilator (4) Sepsis Plan: continue Antibiotic therapy he has pneumonia on CXR (5) Hyperammonemia (6) Encephalopathy (Jose Jauregui MD) Problem Qualifiers (1) Acute renal failure: Qualified Code: N17.9 - Acute renal failure, unspecified acute renal failure type (2) Respiratory failure: Qualified Code: J96.00 - Acute respiratory failure, unspecified whether with hypoxia or hypercapnia (3) Sepsis: Qualified Code: A41.9 - Sepsis, due to unspecified organism Rivka Harrison Feb 28, 2016 12:15 Jose Jauregui MD Feb 28, 2016 20:42
[2016-02-28 15:37] LABS: TOTAL PROTEIN SPE 5.3 GM/DL (6.0-7.6)
--- NOTE | 2016-02-28 16:20 | HHI.PR ---
Subjective Subjective Notes Resting in bed SOURAV Braga changing dressings on RIGHT arm and leg Objective Vitals/I&O Vital Signs Date Time Temp Pulse Resp B/P Pulse Ox O2 Delivery O2 Flow Rate FiO2 02/28/16 15:39 100 60 02/28/16 14:00 88 02/28/16 12:00 97.6 17 135/75 02/28/16 07:00 Mechanical Ventilator Labs Laboratory Tests Test 02/27/16 02/28/16 02/28/16 02/28/16 22:30 03:28 10:30 14:12 Urine Random Creatinine LESS THAN 13.0 Urine Random Sodium 35 Urine Microalbumin/Creatinine 4800 Ratio Urine Color YELLOW Urine Turbidity CLEAR Urine pH 8.0 Urine Specific [place] 1.009 Urine Protein 100 Urine Glucose (UA) NEG Urine Ketones NEG Urine Occult Blood TRACE Urine Nitrite NEG Urine Bilirubin NEG Urine Urobilinogen LESS THAN 2.0 Urine Leukocyte Esterase NEG Urine RBC 13 Urine WBC 17 Urine Squamous Epithelial <1 Cells Urine Renal Epithelial Cells <1 Urine Bacteria RARE Urine Mucus FEW Microscopic Urinalysis Comment CULTURE INDICATED Total Bilirubin 0.4 Direct Bilirubin 0.2 Indirect Bilirubin 0.2 Aspartate Amino Transf 35 (AST/SGOT) Alanine Aminotransferase 15 (ALT/SGPT) Alkaline Phosphatase 311 Ammonia 37 Total Protein 5.4 5.3 Albumin 1.1 1.1 Sodium Level 133 Potassium Level 5.1 Chloride Level 99 Carbon Dioxide Level 25.5 Anion Gap 9 Blood Urea Nitrogen 92 Creatinine 3.12 Estimat Glomerular Filtration 21 Rate Random Glucose 159 Calcium Level 8.9 Phosphorus Level 4.6 Complement C3 95 Complement C4 15 Date/Time Procedure Status Source Growth 02/27/16 22:30 Urine Culture - Preliminary Resulted Urine Clean Catch NO GROWTH IN 24 HOURS. Radiology Last Impressions Chest X-Ray 12/28/15 0000 Signed Impressions: Service Date/Time: Monday, December 28, 2015 14:23 - CONCLUSION: Large left pleural effusion and left lung base consolidation. Freddy Connor MD Abdomen/Pelvis CT 12/19/15 0000 Signed Impressions: Service Date/Time: Saturday, December 19, 2015 10:57 - CONCLUSION: 1. Adjacent volume pneumoperitoneum is observed consistent with perforation of a hollow viscus. This is presumably colonic in origin due to the diffuse inflammatory process involving the colon. I do not clearly identify the source of the pneumoperitoneum however. There is mild dilatation of the small bowel likely an ileus in nature. A significant volume of ascitic fluid is noted. 2. Bibasilar atelectasis and bilateral pleural effusions. 3. Small pericardial effusion. 4. Small bilateral nonobstructing renal calculi. 5. I spoke with Dr. Sanchez concerning the findings. Osmar Chavez Jr., MD Abdomen X-Ray 12/18/15 0000 Signed Impressions: Service Date/Time: Friday, December 18, 2015 16:05 - CONCLUSION: Feeding tube tip is at the gastric antrum. Arnaldo Elias MD Chest CT 12/14/15 0000 Signed Impressions: Service Date/Time: Monday, December 14, 2015 06:12 - CONCLUSION: 1. Cardiomegaly with bilateral consolidation, likely CHF. Pneumonia cannot be excluded. 2. Small right pleural effusion. Wojciech Lockhart MD Head CT 12/02/15 1013 Signed Impressions: Service Date/Time: Wednesday, December 02, 2015 11:00 - CONCLUSION: 1. No intracranial abnormality is seen. 2. Air-fluid level in the right maxillary sinus. Arnaldo Reyes MD Cardiovascular: Regular Lungs: Clear Abdomen: Other (see below ) Extremities: Other (generalized edema ) Narrative Exam RIGHT and LEFT arm dressing in place Abd: Midline incision--- with packing (changed); remained nicky removed; ileostomy with stool; J tube with TF A/P Problem List: (1) Dependent on ventilator (2) Open wound of abdomen (3) Ileostomy in place (4) Jejunostomy tube present (5) S/P total colectomy (6) Acute colitis (7) Gastrostomy tube in place Assessment and Plan 55 year old male s/p ex lap; s/p colectomy; J tube placement and would vac change -Tolerating TF -Continue [place] dressing BID and PRN to midline incision ----continue packing to superior and inferior areas of incision -SOURAV Braga at bedside during dressing change -Will see every few days but please call with questions Attending Statement pt seen at bedside nicky d/diana continue dressing changes Attestation The exam, history, and the medical decision-making described in the above note were completed with the assistance of the mid-level provider. I reviewed and agree with the findings presented. I attest that I had a [id number] encounter with the patient on the same day, and personally performed and documented my assessment and findings in the medical record. Problem Qualifiers (1) Open wound of abdomen: Qualified Code: S31.109D - Open wound of abdomen, subsequent encounter Lurdes Felix Feb 28, 2016 16:20 Bebo Verdin MD Mar 02, 2016 20:04
--- NOTE | 2016-02-28 16:50 | HHI.CCPN ---
Subjective Remarks/Hospital Course 55-year-old male brought by EMS with altered mental status. He has history of chronic opiate medications including methadone and morphine that he takes for pain management and hence they gave him Narcan IV which brought the GCS up to 13. The blood glucose was 74. He has open wounds from his right upper and bilateral lower extremities. He has history of hepatitis C. Last week he was pealing and eating shrimps. Bedside blood sugar was 76 in the ER. He was tachycardic in 1 teens and was intubated in the ED for airway protection. Admitted to ICU with sepsis due to Staph Aureus hand infection and E. Coli bacteriemia. Hospital course complicated by perforated ascending colon with extended right hemicolectomy, primary ileocolic anastamosis, open abdomen, septic shock, acute hypoxic and hypercarbic respiratory failure 12/19. Taken back to the OR 12/20 afternoon for washout and completion colectomy. 12/25 Hemoglobin dropped to 4.1. Noted to have bloody drainage from G-tube and dorsal ileostomy with black stool output due to 2 gastric ulcers bleeding, stomach a significant part had decreased discoloration indicating probable ischemia. s/p epi injection and cauterization. 12/27Tracheostomy placed. 01/06: Underwent exploratory laparotomy with findings of bleeding gastric ulcer which was oversewn by Dr. Verdin abdomen left open with wound VAC in place. Now closed. On trach collar occasionally alternation intermittently with a CPAP. 02/10 Tmax 100.0. The patient has been maintain on CPAP 15 over 5/24 hours without difficulty. O2 saturations greater than 92%. Plan for trach collar trials today. 02/11 Tmax 98.4. The patient was unable to begin trach collar trials yesterday. The patient became tachypnea, RR 50's on CPAP at 4:30 yesterday requiring mechanical ventilation being placed on a rate.Patient has been maintained on mechanical ventilation overnight without any respiratory distress. O2 saturation remains 9798%. No episodes of nausea last night the patient tolerated tube feeds at 50/cc, will advance to goal today. 02/12 Afebrile. This a.m., upon examination, the patient spontaneously had eyes open but was not responding to commands as previously. Noted facial twitching eye twitching specifically the right side of face. The patient was not mouthing any words. Concern for subclinical seizure activity, or elevated ammonia levels. Ammonia level drawn, CT scan obtained EEG pending. Patient also did not tolerate tube feeds overnight. 02/13. Patient has tolerated tube feeds for the last 24 hours, noted albumin level decreased slightly from 1.1-1.0. Nutrition reconsulted for possible supplementation aids. Patient underwent EEG yesterday,, inconclusive could be of epileptiform significant, study was limited due to excessive artifact. CT brain revealed possible left mastoiditis, ammonia level not elevated .Upon examination, patient continues to have facial twitching, intermittently. 02/14 Afebrile. The patient continues to tolerate tube feeds currently at 40 cc /hour, no nausea last evening. Continue noted facial twitching by staff, the patient will go undergo MRI studies today. The patient was able to tolerate CPAP trials for 12 hours yesterday, and class placed back on the vent at 6 PM. 02/15: afebrile. neuro symptoms have resolved. now talking and interactive. smiling. 02/16: afebrile. mental status back to baseline. tolerating cpap 18/5/40% today. interactive. I had a long conversation with the Sarah family today about the fact that, while we continue to make small progresses in his acute illnesses, we have made huge steps backwards in overall functioning. He is much more malnurished and deconditioned than he was on admission, and he is now starting to get opportunistic type infections. All of these point to an overall decline , and I am concerned that he may not survive to hospital discharge, but succumb to repeat medical complications from his now chronic medical diseases. I expressed that I would continue to remain aggressive as long as he wanted me to , but the family needed to start to think about very realistic goals of care, and if we continued to decline in overall functional status and deconditioning, we may consider if we have an acute decline, transitioning to a more comfort type goals. They expressed understanding of this. 02/17: No acute events overnight. Conversation with family per Dr. Chavez yesterday. Patient was placed on Hytrin yesterday. Patient is alert and responsive, mouthing words. Patient continues to tolerate CPAP. 02/18: Afebrile. The patient tolerated CPAP for 5 hours today. Evaluation on right hand digits remain edematous and reddened, noted Adaptic adherence to tendons. Wound care we consulted regarding clarification of wound care instructions. 02/19: The patient tolerated trach collar trials for approximately 30 minutes yesterday. The patient continues on CPAP trials today. Neurology was consulted regarding repeat EEG showing several spikes possible epileptiform activity. Wound care was reconsulted regarding edematous reddened digits right hand and left forearm. 02/20: still with CPAP trials. per plastics, plan for debridement of hand tomorrow in OR. Neuro started Keppra 500mg q12h. otherwise, no acute changes. 02/21: no clinical changes. does have an area of non-blanchable redness over left ear lobe. this is not painful for him. it is the side of his head that he prefers to lay on when resting. We are placing bacitracin on it and keeping pressure off of this area. I had a long family meeting with the [facility] family and palliative care. We talked about long-term goals, and some possibilities if he does not improve, but continues to have a very indolent downward decline. Both his stepdaughter and have agreed that if he were to decline to the point of needing CPR for cardiac arrest, he would not want to live in that deconditioned state, even if we were able to regain circulation. Thus, I have made the patient DNR. Otherwise, plan for OR today for hand debridement. 02/22: debridement of wounds yesterday. still doing well on CPAP, but fails t- piece for tachycardia and tachypnea. Cr bumped from 1.3 to 1.9. clinically he appears slightly dehydrated, even though he has such poor nutritional status that he remains anasarcic. 02/23: no changes clinically. OOB to chair. tolerated SBT all night last night, but tired out today and required rate on vent given fatigue. Cr continues to rise despite gentle hydration. 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 02/24: The patient failed trach collar trials yesterday. CPAP initiated this morning. Patient's urine output unchanged, with a liter of LR bolus yesterday. Creatinine slightly increased today. 02/25: The patient remained out of bed in the chair for approximately 3 hours today. The patient was bolused with 1 L of IV fluid, secondary to low urinary output. The patient failed T piece trials, lasting only 20 minutes. 02/26: The patient was bolused with a liter fluid yesterday, increased urine output overnight totaling 650 cc for 12 hours. Creatinine elevated. Renal consult, appreciate recommendations The patient's mentation was noted to be diminished this morning, ammonia level 41. Will begin lactulose. CPAP trials lasted 9 hours yesterday, unable to successfully perform T piece trial. 02/27 worsening renal function. Family debating use of HD if needed` Objective Vital Signs Date Time Temp Pulse Resp B/P Pulse Ox O2 Delivery O2 Flow Rate FiO2 02/28/16 15:39 100 60 02/28/16 14:00 88 02/28/16 12:00 97.6 17 135/75 02/28/16 07:00 Mechanical Ventilator Intake and Output 02/27/16 02/27/16 02/28/16 08:00 16:00 00:00 Intake Total 892 ml 845 ml 701 ml Output Total 425 ml 500 ml 800 ml Balance 467 ml 345 ml -99 ml Result Diagram: 02/28/16 1030 Imaging Last Impressions Chest X-Ray 02/11/16 0600 Signed Impressions: Service Date/Time: Thursday, February 11, 2016 05:41 - CONCLUSION: Rotated study demonstrating no significant interval change. Owen Arzola MD Upper Extremity Ultrasound 01/30/16 0000 Signed Impressions: Service Date/Time: Saturday, January 30, 2016 11:18 - CONCLUSION: Limited exam without thrombus identified. Raudel Mckinney MD FACR Thoracentesis 01/28/16 0000 Signed Impressions: Service Date/Time: Thursday, January 28, 2016 12:54 - CONCLUSION: Uncomplicated CT-guided thoracentesis. Ramone Hall MD Abdomen/Pelvis CT 01/23/16 0800 Signed Impressions: Service Date/Time: Saturday, January 23, 2016 09:05 - CONCLUSION: Relative to the prior study the marked distention of the stomach is reduced. There is a persistent 5 cm left upper quadrant sub-diaphragmatic fluid collection and drain in the left upper quadrant. Patient is post splenectomy. Jejunostomy is in place and ostomy is noted in the right lower abdomen. No free fluid or free air is appreciated and there is no evidence of obstruction. Bilateral pleural effusions persists small but slightly larger on the right with left lower lobe consolidation. Jared Medina MD ADDENDUM: I have reviewed the images with respect to her request made for left subdiaphragmatic drainage of a fluid collection. No fluid collection is observed within the left upper quadrant. There is residual splenic tissue that measures 5 cm in diameter with Hounsfield units 62. The stomach fundus extends up into the subdiaphragmatic location. No subdiaphragmatic fluid collection is observed. Surgical drains are noted. Osmar Chavez Jr., MD Chest CT 01/05/16 0000 Signed Impressions: Service Date/Time: Tuesday, January 05, 2016 23:15 - CONCLUSION: 1. Persistent left lower lobar consolidation. Improved consolidative infiltrates in the right lower lung. 2. Interval increase size bilateral pleural effusions , left greater than right. Osmar Alegria MD Celiac/Hepatic Arteriogram 12/27/15 0000 Signed Impressions: Service Date/Time: December 13:41 - CONCLUSION: 1. No active GI bleed identified. Robert Mckinney MD Abdomen X-Ray 12/18/15 0000 Signed Impressions: Service Date/Time: Friday, December 18, 2015 16:05 - CONCLUSION: Feeding tube tip is at the gastric antrum. Arnaldo Elias MD Head CT 12/02/15 1013 Signed Impressions: Service Date/Time: Wednesday, December 02, 2015 11:00 - CONCLUSION: 1. No intracranial abnormality is seen. 2. Air-fluid level in the right maxillary sinus. Arnaldo Reyes MD Last 24 hours Impressions Chest X-Ray 02/05/16 0600 Signed Impressions: Service Date/Time: Friday, February 05, 2016 04:11 - CONCLUSION: Worsening/developing effusions and basilar consolidation, currently left worse than right. Arnaldo Elias MD Objective Remarks GENERAL: Middle-aged chronically critically ill, lying in bed , awake, alert, interactive. HEENT: NCAT. mucous membranes moist. NECK: [address], no active bleeding, no evidence of infection. RESPIRATORY: Normal respiratory rate. Breath sounds present bilaterally, clear without wheezing or rhonchi. CARDIOVASCULAR: Regular, tachycardic. HR 110's. No murmurs rubs or gallops. GASTROINTESTINAL: J tube in place with tube feeds running @ 40cc/hr.Ostomy with brown colored stool approx 100cc MUSCULOSKELETAL: Pitting edema 2+ bilateral feet and hands. Gauze dressing bilateral upper extremity. Multiple open wounds in the lower extremity with gauze dressing. NEURO: Awake. Alert, interactive. RASS 0, CAM -. mouthing words. 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 Miller). - Trach exchanged 8.0 Shiley with cuff on 01/19 - DuoNeb q6h and as needed - Last CT guided thoracentesis 01/27 - CXR 02/11 unchanged - Lasix on hold since 02/23 - continue CPAP trials and trach collar trials as tolerated. - will continue IPPB therapy to help recruitment - FIO2 noted increased to .60, CXR in am Leukocytosis Bandemia-resolved - re-cultured 02/07 - Bands 6->1->11->2->1 (02/16) - ID following, Dr. Becerra - WBC 18->18 today Sputum Culture 02/12 Stenotrophomonas Maltophilia Sputum Culture 02/07 Stenotrophomonas Maltophilia Blood Culture 02/07 NGTD Urine Culture 02/02 neg - ID input appreciated NIGEL - on home CPAP - not an issue while with Tracheostomy Hyperkalemia - resolved - hold Lasix today. continue free water flushes to 300cc q6h. UOP slightly improved overnight. - Replete electrolytes per ICU protocol - Kayexalate discontinued Hypernatremia-resolved - continue Free water flushes 300 q 6 hr - Avoiding nephrotoxins. - Monitor BMP - Creatinine 2.5-->2.7 -> 3.2 worsening - Nephrology consulted, Perforated right colon with ischemic colitis - s/p ex-lap, extended right hemicolectomy with primary ileocolic anastamosis - s/p Ex lap 01/05 for bleeding gastric ulcer - management per general surgery - Open abdominal wound-2 small open areas of incision with continued packing, Primapore dressing BID to abdomen per general surgery. Granulation tissue Acute protein calorie malnutrition - severe -Albumin level 1.1 -Nutrition reconsulted, for recommendations regarding supplementation - Beneprotein discontinued 02/26 - Albumin level diminished, 1.1 - Jevity goal rate to 65/hr @ goal Chronic hepatitis C - s/p interferon/ribavirin years ago - Liver biopsy 04/14/08 - monitor for liver failure -02/14 Ammonia level 31, 02/25- 41,Lactulose TID -Diminished responsiveness, alertness albumin level 1.1, will decrease dosage of narcotics 03/20 increased free fraction of drug may be contributing to decreased alertness - LFT's in am Gastric ulcer disease - EGD 12/26/15 showed 2 large gastric ulcers with active bleeding - status post epinephrine infusion and cauterization - To OR 01/05 with GI bleeding and hemorrhagic shock. -S/P gastrotomy with ligation of gastric ulcer, lysis of adhesions - Continue Protonix 40 g IV q12h Acute Anemia - secondary to acute blood loss - Hgb stable, will transfuse for hemoglobin less than 7 - last transfused 1 unit PRBC 02/02 - No obvious active bleeding. - Ferrous Sulfate 300mg bid Thrombocytopenia-resolved - Monitor CBC - Hep PLT ab negative on 12/03 - due to chronic liver disease Hyperglycemia of Critical Illness - Monitor blood glucose per ICU protocol - Levemir BID on hold, not clinically indicated at this time - Low-dose insulin sliding scale DC Critical illness polyneuropathy -Continue PT daily, out of bed to chair, -functional maintenance of extremities 4 Open wounds,B/L upper extremities multiple stages -Reconsult wound care 02/11 B/L upper extremities -Digits on hand reddened and edematous-wound care consulted, Plastic reconsulted: debridement 02/21. Facial spasms/twitching -02/12 CT brain normal, possible left mastoiditis -Per ENT - mastoiditis to be followed up on outpatient basis -02/14 MRI brain: no acute disease. - EEG 02/12-mouth and facial twitching noted. The discharge could be of epileptiform significant, excessive artifact study limited. -02/15 Resolution of facial twitching -EEG 02/17 moderate diffuse encephalopathy possibly may be slight increased tendency for seizure. Noted bifrontal sharps and slow sharp complex noted -Neurology reconsulted for follow-up - per neurology, Keppra 500mg q12h. Urinary Retention: - 02/16 Terazosin 5mg qhs. GI Prophylaxis: - Protonix IV BID DVT Prophylaxis: - SCDs - No chemical DVT Prophylaxis, OOB to chair and daily functional maintenance of extremities x 4 ACCESS: --PIV x 2. Discuss BUSINESS [employer] MANAGER at bedside. Telephoned Mrs. Holcomb, discussed plan with decreasing narcotic administration, nephrology consult, and patient's current status. All questions answered. Level 2 Patient is now a DNR per his wishes as expressed by his family. Problem Qualifiers (1) Respiratory failure: Qualified Code: J96.00 - Acute respiratory failure, unspecified whether with hypoxia or hypercapnia (2) Altered mental status: Qualified Code: R41.0 - Delirium (3) Sepsis: Qualified Code: A41.9 - Sepsis, due to unspecified organism Chalino Mac MD Feb 28, 2016 16:50
[2016-02-28] MEDS: TERAZOSIN HCL 5 MG CAP PO SCH (20:26)
--- NOTE | 2016-02-28 22:24 | HHI.IDPN ---
Subjective Subjective Remarks Delayed entry - pt was seen today around 4:30 pm dw RN pt is not doing well overall Less interactive, not trying to mouht words ay more remains on vent on 60% FiO2 afebril Antibiotics fortaz Lines periferal L foot Past Medical History RA HCV sp splenectomy Allergies: Coded Allergies: Compazine (Verified Allergy, Severe, VOMITING, RASH, 08/26/14) SLURRED SPEECH, MIGRAINES Demerol (Verified Allergy, Severe, VOMITING, 08/26/14) Levaquin (Verified Allergy, Severe, 08/26/14) Penicillin (Verified Allergy, Severe, Rash, 08/26/14) Phenergan (Verified Allergy, Severe, VOMITING, 08/26/14) Uncoded Allergies: ANTI-CONVULSIVES (Allergy, Severe, MIGRAINES, SLURRED SPEECH,, 01/23/14) Objective . Vital Signs Date Time Temp Pulse Resp B/P Pulse Ox O2 Delivery O2 Flow Rate FiO2 02/28/16 21:10 100 60 02/28/16 20:00 97.6 88 20 131/70 99 02/28/16 20:00 60 02/28/16 20:00 88 02/28/16 19:00 100 Mechanical Ventilator 60 02/28/16 18:00 96 02/28/16 16:00 98 02/28/16 16:00 60 02/28/16 16:00 97.6 98 28 132/60 100 02/28/16 15:39 100 60 02/28/16 14:00 88 02/28/16 12:00 97.6 86 17 135/75 100 02/28/16 12:00 86 02/28/16 12:00 60 02/28/16 11:02 100 60 02/28/16 10:00 86 02/28/16 09:37 60 02/28/16 08:00 60 02/28/16 08:00 94 02/28/16 08:00 97.7 94 19 104/53 100 02/28/16 07:58 100 60 02/28/16 07:00 100 Mechanical Ventilator 60 02/28/16 06:00 94 02/28/16 04:18 95 60 02/28/16 04:00 98.3 100 16 104/53 98 02/28/16 04:00 100 02/28/16 04:00 60 02/28/16 02:00 98 02/28/16 00:44 97 60 02/28/16 00:00 98.9 112 22 110/59 97 02/28/16 00:00 60 02/28/16 00:00 112 02/27/16 02/27/16 02/28/16 15:00 23:00 07:00 Intake Total 845 ml 701 ml 929 ml Output Total 500 ml 800 ml 450 ml Balance 345 ml -99 ml 479 ml IV Total 60 ml 136 ml 137 ml Tube Feeding 485 ml 265 ml 492 ml Other 300 ml 300 ml 300 ml Output Urine Total 300 ml 400 ml 350 ml Stool Total 200 ml 400 ml 100 ml # Bowel Movements 1 . Laboratory Tests Test 02/27/16 02/28/16 02/28/16 02/28/16 03:45 03:28 10:30 14:12 Sodium Level 136 MEQ/L 133 MEQ/L Potassium Level 5.1 MEQ/L 5.1 MEQ/L Chloride Level 99 MEQ/L 99 MEQ/L Carbon Dioxide Level 23.9 MEQ/L 25.5 MEQ/L Anion Gap 13 MEQ/L 9 MEQ/L Blood Urea Nitrogen 88 MG/DL 92 MG/DL Creatinine 2.70 MG/DL 3.12 MG/DL Estimat Glomerular Filtration 25 ML/MIN 21 ML/MIN Rate Random Glucose 103 MG/DL 159 MG/DL Calcium Level 8.9 MG/DL 8.9 MG/DL Total Bilirubin 0.4 MG/DL Direct Bilirubin 0.2 MG/DL Indirect Bilirubin 0.2 MG/DL Aspartate Amino Transf 35 U/L (AST/SGOT) Alanine Aminotransferase 15 U/L (ALT/SGPT) Alkaline Phosphatase 311 U/L Ammonia 37 MCMOL/L Total Protein 5.4 GM/DL 5.3 GM/DL Albumin 1.1 GM/DL 1.1 GM/DL Phosphorus Level 4.6 MG/DL Microbiology Date/Time Procedure Status Source Growth 02/27/16 22:30 Urine Culture - Preliminary Resulted Urine Clean Catch NO GROWTH IN 24 HOURS. Imaging Last Impressions Chest X-Ray 02/27/16 1722 Signed Impressions: Service Date/Time: Saturday, February 27, 2016 17:49 - CONCLUSION: 1. Left upper and left lower lobe consolidation. This could be pneumonia with probable small pleural effusion. 2. Minimal patchy densities right lower lobe. Wojciech Lockhart MD Renal Ultrasound 02/24/16 0000 Signed Impressions: Service Date/Time: Wednesday, February 24, 2016 19:13 - CONCLUSION: 1. Multiple calcified nonobstructing left renal calculi. The patient's known right renal calculi are not well visualized sonographically. 2. Simple cyst within the lower pole of the right kidney measuring 2.4 cm in size. 3. No hydronephrosis or solid renal mass. 4. Poor visualization of the urinary bladder due to non distension. 5. Probable sludge ball within the gallbladder measuring 4.6 x 4.0 x 2.8 cm. Foster Ferreira MD Brain MRI 02/15/16 0000 Signed Impressions: Service Date/Time: Monday, February 15, 2016 12:16 - CONCLUSION: Minimal chronic fluid in right mastoid air cells toward the tip. New fluid in air cells of the left mastoid suggesting mastoiditis. Intracranially negative other than some minimal deep white matter and periventricular probable microvascular ischemic demyelinization.. Jared Medina MD Head CT 02/13/16 0000 Signed Impressions: Service Date/Time: Saturday, February 13, 2016 12:12 - CONCLUSION: 1. No acute intracranial abnormality. 2. New opacification of the left mastoid air cells. Clinical evaluation for acute left mastoiditis suggested. Osmar Chavez Jr., MD Upper Extremity Ultrasound 01/30/16 0000 Signed Impressions: Service Date/Time: Saturday, January 30, 2016 11:18 - CONCLUSION: Limited exam without thrombus identified. Raudel Mckinney MD FACR Thoracentesis 01/28/16 0000 Signed Impressions: Service Date/Time: Thursday, January 28, 2016 12:54 - CONCLUSION: Uncomplicated CT-guided thoracentesis. Ramone Hall MD Abdomen/Pelvis CT 01/23/16 0800 Signed Impressions: Service Date/Time: Saturday, January 23, 2016 09:05 - CONCLUSION: Relative to the prior study the marked distention of the stomach is reduced. There is a persistent 5 cm left upper quadrant sub-diaphragmatic fluid collection and drain in the left upper quadrant. Patient is post splenectomy. Jejunostomy is in place and ostomy is noted in the right lower abdomen. No free fluid or free air is appreciated and there is no evidence of obstruction. Bilateral pleural effusions persists small but slightly larger on the right with left lower lobe consolidation. Jared Medina MD ADDENDUM: I have reviewed the images with respect to her request made for left subdiaphragmatic drainage of a fluid collection. No fluid collection is observed within the left upper quadrant. There is residual splenic tissue that measures 5 cm in diameter with Hounsfield units 62. The stomach fundus extends up into the subdiaphragmatic location. No subdiaphragmatic fluid collection is observed. Surgical drains are noted. Osmar Chavez Jr., MD Chest CT 01/05/16 0000 Signed Impressions: Service Date/Time: Tuesday, January 05, 2016 23:15 - CONCLUSION: 1. Persistent left lower lobar consolidation. Improved consolidative infiltrates in the right lower lung. 2. Interval increase size bilateral pleural effusions , left greater than right. Osmar Alegria MD Celiac/Hepatic Arteriogram 12/27/15 0000 Signed Impressions: Service Date/Time: December 13:41 - CONCLUSION: 1. No active GI bleed identified. Robert Mckinney MD Abdomen X-Ray 12/18/15 0000 Signed Impressions: Service Date/Time: Friday, December 18, 2015 16:05 - CONCLUSION: Feeding tube tip is at the gastric antrum. Arnaldo Elias MD Physical Exam GENERAL: On vent , awake fully alert SKIN: no jaundice. sinficantly worsened generalysed edema HEENT: no icterus, no nasal discharge NECK: Trach in place CARDIOVASCULAR: systolic murmur in base of heart RESPIRATORY/CHEST: scattered rhonchi on auscultation. GASTROINTESTINAL: dressing in place Stoma with brown stool soft, thick; looks OK Incision with dressing in place GENITOURINARY: Sandoval catheter in place with clear light yellow urine with sediment MUSCULOSKELETAL: Extremities no cyanosis, + 3 edema on BLE BUE with dressing in place NEUROLOGICAL: fully awake and alert , makes eye contact, not follows commands unble to mouth words Assessment & Plan Remarks Sepsis 2/2 colon perforation and intraperitoneal gross contamination and Intra abdominal peritonitis (Cdiff Colitis. vs ischemia) - sp subtotal colectomy and ileostomy RUE severe nec fasc due to MSSA - clinically resolved infx, poor healing Recurrent life threatening upper GI bleeding 2/2 bleeding ulcers: stopped Persistent leukocytosis - improving C. parapsilosa fungemia : resolved New acute left mastoiditis ? new PNA - growing Stenotroph malto Sp sz, now aphasic ? postictal - MRI neg for stroke/bleed New fever PLAN: cont fortaz rechk spiutum clx monitor CBC Dw Argelia Kelly RN, MD Feb 28, 2016 22:24
[2016-02-29] VITALS (17 sets, daily range): BP systolic 99–135; BP diastolic 63–74; PULSE 76–96; RESP 15–18; TEMP 97.5–97.6; O2SAT 97–100
[2016-02-29] MEDS: oxyCODONE HCL ORAL CONC 20 MG/ML SYRINGE PO SCH ×6 (00:39→20:35)
[2016-02-29] MEDS: cefTAZidime INJ 2,000 MG in SODIUM CHLORIDE 0.9% INJ 100 ML IV SCH ×2 (00:39→12:00)
[2016-02-29] MEDS: CHLORHEXIDINE GLUCONATE 2 % 1 PACK (2 CLOTHS) TOP SCH (00:40)
[2016-02-29] MEDS: FREE WATER G-TUBE SCH ×4 (00:40→20:37)
[2016-02-29] MEDS: METOPROLOL TARTRATE 25 MG TAB TUBE SCH ×4 (00:40→17:40)
[2016-02-29] MEDS: ONDANSETRON HCL 4 MG/2 ML VIAL IV PUSH PRN (01:05)
[2016-02-29 04:39] LABS: AUTOMATED NEUTROPHIL # 12.1 TH/MM3 (1.8-7.7); BASOPHIL # 0.1 TH/MM3 (0-0.2); BASOPHIL % 0.7 % (0.0-2.0); EOSINOPHIL # 1.4 TH/MM3 (0-0.4); EOSINOPHIL % 7.4 % (0.0-4.0); LYMPH % 9.3 % (9.0-44.0); LYMPHOCYTE # 1.7 TH/MM3 (1.0-4.8); MEAN CELL VOLUME 95.2 FL (80.0-100.0); MEAN CORPUSCULAR HEMOGLOBIN 30.4 PG (27.0-34.0); MEAN CORPUSCULAR HGB CONC 31.9 % (32.0-36.0); MONO % 16.7 % (0.0-8.0); NEUT % 65.9 % (16.0-70.0); PLATELET COUNT 293 TH/MM3 (150-450); RED BLOOD COUNT 2.31 MIL/MM3 (4.50-5.90); WHITE BLOOD COUNT 18.3 TH/MM3 (4.0-11.0)
[2016-02-29 05:02] LABS: ALKALINE PHOSPHATASE 332 U/L (45-117); ALT (GPT) 14 U/L (12-78); ANION GAP 14 MEQ/L (5-15); AST (GOT) 35 U/L (15-37); BICARBONATE 22.4 MEQ/L (21.0-32.0); BLOOD UREA NITROGEN 94 MG/DL (7-18); CHLORIDE 100 MEQ/L (98-107); GLOMERULAR FILTRATION RATE 20 ML/MIN (>89); MAGNESIUM 2.4 MG/DL (1.5-2.5); POTASSIUM 5.1 MEQ/L (3.5-5.1); SODIUM (NA) 136 MEQ/L (136-145); TOTAL BILIRUBIN ADULT 0.3 MG/DL (0.2-1.0)
[2016-02-29 05:06] LABS: HEMO FLAGS AUTO DIFF
[2016-02-29] MEDS: PANTOPRAZOLE SODIUM 40 MG VIAL IV PUSH SCH ×2 (05:38→17:40)
[2016-02-29 05:57] LABS: BLOOD GAS BASE EXCESS -2.8 mmol/L (-2-2); BLOOD GAS CARBOXYHEMOGLOBIN 1.4 % (0-4); BLOOD GAS HCO3 22 mmol/L (22-26); BLOOD GAS METHEMOGLOBIN 0.7 % (0-2); BLOOD GAS O2 HGB SATURATION 93 % (90-100); BLOOD GAS OXYGEN CONTENT 13.5 Vol % (12.0-20.0); BLOOD GAS PCO2 41 mmHg (38-42); BLOOD GAS PO2 83 mmHg (61-120); BLOOD GAS TOTAL HGB 10.3 G/DL (12.0-16.0); CRITICAL VALUE NO; OXYGEN DEVICE VENTILATOR; TEMP CORR TO 98.6
[2016-02-29 05:58] LABS: DRAW SITE LT BRACHIAL; FIO2 60 %; NUMBER OF ARTERIAL PUNCTURES 1; STAT NO; ULNAR PULSE PRESENT; VENT SETTINGS PRVC/AC
--- NOTE | 2016-02-29 06:24 | RADRPT ---
EXAM DATE/TIME: 02/29/2016 05:32 [facility] COMPARISON: CHEST SINGLE AP, February 27, 2016, 17:49. INDICATIONS : Evaluate after respiratory failure. MEDICAL HISTORY : Hypertension. SURGICAL HISTORY : Tracheostomy ENCOUNTER: Subsequent ACUITY: 2 months PAIN SCORE: Non-responsive. LOCATION: Bilateral chest FINDINGS: The cardiac silhouette is enlarged in transverse diameter. A tracheostomy tube is in place in the mid line. There is complete opacification of left hemithorax. Mucous plugging would be a consideration. T here is subsegmental atelectasis in the right base. CONCLUSION: 1. Complete opacification left hemithorax and volume loss. This is new when compared with the prior e xam. Ramone Hall MD on February 29, 2016 at 6:22 Board Certified Radiologist. This report was verified electronically.
[2016-02-29 07:25] LABS: ACANTHOCYTES OCC (NORMAL); PLATELET ESTIMATE SMEAR NORMAL (NORMAL); PLATELET MORPHOLOGY NORMAL (NORMAL); SCAN/DIFF AUTO DIFF CONFIRMED; TEARDROP RBCS 1+ (NORMAL)
[2016-02-29] MEDS ORDERED: MIDAZOLAM HCL 2 MG/2 ML VIAL IV PUSH ONE (08:30)
[2016-02-29] MEDS: BUMETANIDE INJ 1 MG/4 ML VIAL IV PUSH SCH (08:51)
[2016-02-29] MEDS: SILVER SULFADIAZINE 1% CR 400 GM JAR TOPICAL SCH (09:00)
[2016-02-29] MEDS: NEOMYCIN/POLYMYXIN/BACITRACIN OINT 15 GM TUBE TOPICAL SCH ×2 (09:00→20:37)
[2016-02-29] MEDS: POVIDONE IODINE 10% OINT 30 GM TUBE TOPICAL SCH (09:00)
[2016-02-29] MEDS: FERROUS SULFATE 300 MG /5ML UDC TUBE SCH ×2 (09:47→20:35)
[2016-02-29] MEDS: MULTIVITAMIN TAB G-TUBE SCH (09:47)
[2016-02-29] MEDS: LACTULOSE SYRUP 20 GM/30 ML CUP PO SCH ×3 (09:47→17:40)
[2016-02-29] MEDS: levETIRAcetam 500 MG/5 ML UDC PO SCH (09:47)
--- NOTE | 2016-02-29 10:11 | PD.PROCEDR ---
Procedure Note Procedure DATE OF PROCEDURE: 02/29/16 PREPROCEDURE DIAGNOSIS: Bilateral pulmonary infiltrates. POSTOPERATIVE DIAGNOSES: 1. Diffuse tracheobronchitis. 2. Bilateral atelectasis PROCEDURE PERFORMED: Fiberoptic bronchoscopy with transbronchial washout ATTENDING: Chalino Mac MD POLITICAL DIRECTOR: None. CONSCIOUS SEDATION: 1. Fentanyl 100 mg IV push. 2. versed 2mg IVP x 1 After appropriate consent was obtained from the patient's NOK, all risks and benefits were explained. A bronchofiberscope was inserted into the ETT, advanced to the trachea. Systematic inspection was then carried out of the entire tracheobronchial tree. The bronchoscope was then advanced to the right upper lobe and the bronchoscope was wedged into the apical segment. Bronchoalveolar lavage was then performed at this segment utilizing 60 mL of saline. Bronchoscope was then pulled back at the level of the gregoria and advanced into the right middle lobe. Bronchial washings were obtained from the medial and lateral segments of the right middle lobe. Bronchoscope was then pulled back and then advanced into the right lower lobe. When this was completed , the additional bronchial washings were obtained from right lower lobe and right middle lobe. The area was then inspected for any acute hemorrhage, but none were seen. The bronchoscope was withdrawn. The patient tolerated the procedure well. There were no complications. Chalino Mac MD Feb 29, 2016 10:11
--- NOTE | 2016-02-29 10:18 | HHI.CCPN ---
Subjective Remarks/Hospital Course 55-year-old male brought by EMS with altered mental status. He has history of chronic opiate medications including methadone and morphine that he takes for pain management and hence they gave him Narcan IV which brought the GCS up to 13. The blood glucose was 74. He has open wounds from his right upper and bilateral lower extremities. He has history of hepatitis C. Last week he was pealing and eating shrimps. Bedside blood sugar was 76 in the ER. He was tachycardic in 1 teens and was intubated in the ED for airway protection. Admitted to ICU with sepsis due to Staph Aureus hand infection and E. Coli bacteriemia. Hospital course complicated by perforated ascending colon with extended right hemicolectomy, primary ileocolic anastamosis, open abdomen, septic shock, acute hypoxic and hypercarbic respiratory failure 12/19. Taken back to the OR 12/20 afternoon for washout and completion colectomy. 12/25 Hemoglobin dropped to 4.1. Noted to have bloody drainage from G-tube and dorsal ileostomy with black stool output due to 2 gastric ulcers bleeding, stomach a significant part had decreased discoloration indicating probable ischemia. s/p epi injection and cauterization. 12/27Tracheostomy placed. 01/06: Underwent exploratory laparotomy with findings of bleeding gastric ulcer which was oversewn by Dr. Verdin abdomen left open with wound VAC in place. Now closed. On trach collar occasionally alternation intermittently with a CPAP. 02/10 Tmax 100.0. The patient has been maintain on CPAP 15 over 5/24 hours without difficulty. O2 saturations greater than 92%. Plan for trach collar trials today. 02/11 Tmax 98.4. The patient was unable to begin trach collar trials yesterday. The patient became tachypnea, RR 50's on CPAP at 4:30 yesterday requiring mechanical ventilation being placed on a rate.Patient has been maintained on mechanical ventilation overnight without any respiratory distress. O2 saturation remains 9798%. No episodes of nausea last night the patient tolerated tube feeds at 50/cc, will advance to goal today. 02/12 Afebrile. This a.m., upon examination, the patient spontaneously had eyes open but was not responding to commands as previously. Noted facial twitching eye twitching specifically the right side of face. The patient was not mouthing any words. Concern for subclinical seizure activity, or elevated ammonia levels. Ammonia level drawn, CT scan obtained EEG pending. Patient also did not tolerate tube feeds overnight. 02/13. Patient has tolerated tube feeds for the last 24 hours, noted albumin level decreased slightly from 1.1-1.0. Nutrition reconsulted for possible supplementation aids. Patient underwent EEG yesterday,, inconclusive could be of epileptiform significant, study was limited due to excessive artifact. CT brain revealed possible left mastoiditis, ammonia level not elevated .Upon examination, patient continues to have facial twitching, intermittently. 02/14 Afebrile. The patient continues to tolerate tube feeds currently at 40 cc /hour, no nausea last evening. Continue noted facial twitching by staff, the patient will go undergo MRI studies today. The patient was able to tolerate CPAP trials for 12 hours yesterday, and class placed back on the vent at 6 PM. 02/15: afebrile. neuro symptoms have resolved. now talking and interactive. smiling. 02/16: afebrile. mental status back to baseline. tolerating cpap 18/5/40% today. interactive. I had a long conversation with the Sarah family today about the fact that, while we continue to make small progresses in his acute illnesses, we have made huge steps backwards in overall functioning. He is much more malnurished and deconditioned than he was on admission, and he is now starting to get opportunistic type infections. All of these point to an overall decline , and I am concerned that he may not survive to hospital discharge, but succumb to repeat medical complications from his now chronic medical diseases. I expressed that I would continue to remain aggressive as long as he wanted me to , but the family needed to start to think about very realistic goals of care, and if we continued to decline in overall functional status and deconditioning, we may consider if we have an acute decline, transitioning to a more comfort type goals. They expressed understanding of this. 02/17: No acute events overnight. Conversation with family per Dr. Chavez yesterday. Patient was placed on Hytrin yesterday. Patient is alert and responsive, mouthing words. Patient continues to tolerate CPAP. 02/18: Afebrile. The patient tolerated CPAP for 5 hours today. Evaluation on right hand digits remain edematous and reddened, noted Adaptic adherence to tendons. Wound care we consulted regarding clarification of wound care instructions. 02/19: The patient tolerated trach collar trials for approximately 30 minutes yesterday. The patient continues on CPAP trials today. Neurology was consulted regarding repeat EEG showing several spikes possible epileptiform activity. Wound care was reconsulted regarding edematous reddened digits right hand and left forearm. 02/20: still with CPAP trials. per plastics, plan for debridement of hand tomorrow in OR. Neuro started Keppra 500mg q12h. otherwise, no acute changes. 02/21: no clinical changes. does have an area of non-blanchable redness over left ear lobe. this is not painful for him. it is the side of his head that he prefers to lay on when resting. We are placing bacitracin on it and keeping pressure off of this area. I had a long family meeting with the [facility] family and palliative care. We talked about long-term goals, and some possibilities if he does not improve, but continues to have a very indolent downward decline. Both his stepdaughter and have agreed that if he were to decline to the point of needing CPR for cardiac arrest, he would not want to live in that deconditioned state, even if we were able to regain circulation. Thus, I have made the patient DNR. Otherwise, plan for OR today for hand debridement. 02/22: debridement of wounds yesterday. still doing well on CPAP, but fails t- piece for tachycardia and tachypnea. Cr bumped from 1.3 to 1.9. clinically he appears slightly dehydrated, even though he has such poor nutritional status that he remains anasarcic. 02/23: no changes clinically. OOB to chair. tolerated SBT all night last night, but tired out today and required rate on vent given fatigue. Cr continues to rise despite gentle hydration. 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 02/24: The patient failed trach collar trials yesterday. CPAP initiated this morning. Patient's urine output unchanged, with a liter of LR bolus yesterday. Creatinine slightly increased today. 02/25: The patient remained out of bed in the chair for approximately 3 hours today. The patient was bolused with 1 L of IV fluid, secondary to low urinary output. The patient failed T piece trials, lasting only 20 minutes. 02/26: The patient was bolused with a liter fluid yesterday, increased urine output overnight totaling 650 cc for 12 hours. Creatinine elevated. Renal consult, appreciate recommendations The patient's mentation was noted to be diminished this morning, ammonia level 41. Will begin lactulose. CPAP trials lasted 9 hours yesterday, unable to successfully perform T piece trial. 02/27 worsening renal function. Family debating use of HD if needed` 02/28 complete opacification of l;eft hemothorax, bronchoscopy Objective Vital Signs Date Time Temp Pulse Resp B/P Pulse Ox O2 Delivery O2 Flow Rate FiO2 02/29/16 09:42 100 100 02/29/16 08:00 76 02/29/16 08:00 97.5 18 99/63 02/29/16 07:00 Mechanical Ventilator Intake and Output 02/28/16 02/28/16 02/29/16 08:00 16:00 00:00 Intake Total 929 ml 766 ml 437 ml Output Total 450 ml 850 ml 1275 ml Balance 479 ml -84 ml -838 ml Result Diagram: 02/29/16 0404 02/29/16 0404 Other Results Laboratory Tests Test 02/29/16 05:45 Blood Gas Puncture Site LT BRACHIAL Blood Gas Patient Temperature 98.6 Blood Gas HCO3 22 mmol/L (22-26) Blood Gas Base Excess -2.8 mmol/L (-2-2) Blood Gas Oxygen Saturation 93 % (90-100) Arterial Blood pH 7.35 (7.380-7.420) Arterial Blood Partial 41 mmHg (38-42) Pressure CO2 Arterial Blood Partial 83 mmHg Pressure O2 (61-120) Arterial Blood Oxygen Content 13.5 Vol % (12.0-20.0) Arterial Blood 1.4 % (0-4) Carboxyhemoglobin Arterial Blood Methemoglobin 0.7 % (0-2) Blood Gas Hemoglobin 10.3 G/DL (12.0-16.0) Oxygen Delivery Device VENTILATOR Blood Gas Ventilator Setting PRVC/AC Blood Gas Inspired Oxygen 60 % Imaging Last Impressions Chest X-Ray 02/11/16 0600 Signed Impressions: Service Date/Time: Thursday, February 11, 2016 05:41 - CONCLUSION: Rotated study demonstrating no significant interval change. Owen Arzola MD Upper Extremity Ultrasound 01/30/16 0000 Signed Impressions: Service Date/Time: Saturday, January 30, 2016 11:18 - CONCLUSION: Limited exam without thrombus identified. Raudel Mckinney MD FACR Thoracentesis 01/28/16 0000 Signed Impressions: Service Date/Time: Thursday, January 28, 2016 12:54 - CONCLUSION: Uncomplicated CT-guided thoracentesis. Ramone Hall MD Abdomen/Pelvis CT 01/23/16 0800 Signed Impressions: Service Date/Time: Saturday, January 23, 2016 09:05 - CONCLUSION: Relative to the prior study the marked distention of the stomach is reduced. There is a persistent 5 cm left upper quadrant sub-diaphragmatic fluid collection and drain in the left upper quadrant. Patient is post splenectomy. Jejunostomy is in place and ostomy is noted in the right lower abdomen. No free fluid or free air is appreciated and there is no evidence of obstruction. Bilateral pleural effusions persists small but slightly larger on the right with left lower lobe consolidation. Jared Medina MD ADDENDUM: I have reviewed the images with respect to her request made for left subdiaphragmatic drainage of a fluid collection. No fluid collection is observed within the left upper quadrant. There is residual splenic tissue that measures 5 cm in diameter with Hounsfield units 62. The stomach fundus extends up into the subdiaphragmatic location. No subdiaphragmatic fluid collection is observed. Surgical drains are noted. Osmar Chavez Jr., MD Chest CT 01/05/16 0000 Signed Impressions: Service Date/Time: Tuesday, January 05, 2016 23:15 - CONCLUSION: 1. Persistent left lower lobar consolidation. Improved consolidative infiltrates in the right lower lung. 2. Interval increase size bilateral pleural effusions , left greater than right. Osmar Alegria MD Celiac/Hepatic Arteriogram 12/27/15 0000 Signed Impressions: Service Date/Time: December 13:41 - CONCLUSION: 1. No active GI bleed identified. Robert Mckinney MD Abdomen X-Ray 12/18/15 0000 Signed Impressions: Service Date/Time: Friday, December 18, 2015 16:05 - CONCLUSION: Feeding tube tip is at the gastric antrum. Arnaldo Elias MD Head CT 12/02/15 1013 Signed Impressions: Service Date/Time: Wednesday, December 02, 2015 11:00 - CONCLUSION: 1. No intracranial abnormality is seen. 2. Air-fluid level in the right maxillary sinus. Arnaldo Reyes MD Last 24 hours Impressions Chest X-Ray 02/05/16 0600 Signed Impressions: Service Date/Time: Friday, February 05, 2016 04:11 - CONCLUSION: Worsening/developing effusions and basilar consolidation, currently left worse than right. Arnaldo Elias MD Objective Remarks GENERAL: Middle-aged chronically critically ill, lying in bed , awake, alert, interactive. HEENT: NCAT. mucous membranes moist. NECK: [address], no active bleeding, no evidence of infection. RESPIRATORY: Normal respiratory rate. Breath sounds present bilaterally, clear without wheezing or rhonchi. CARDIOVASCULAR: Regular, tachycardic. HR 110's. No murmurs rubs or gallops. GASTROINTESTINAL: J tube in place with tube feeds running @ 40cc/hr.Ostomy with brown colored stool approx 100cc MUSCULOSKELETAL: Pitting edema 2+ bilateral feet and hands. Gauze dressing bilateral upper extremity. Multiple open wounds in the lower extremity with gauze dressing. NEURO: Awake. Alert, interactive. RASS 0, CAM -. mouthing words. 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 Miller). - Trach exchanged 8.0 Shiley with cuff on 01/19 - DuoNeb q6h and as needed - hold CPAP trials due to complete opacification of the left hemothorax - Bronchoscopy today and increase PEEP - FIO2 noted increased to .60, CXR in am Leukocytosis Bandemia - ID following, Dr. Becerra - WBC 18->18 today Sputum Culture 02/12 Stenotrophomonas Maltophilia Sputum Culture 02/07 Stenotrophomonas Maltophilia Blood Culture 02/07 NGTD Urine Culture 02/02 neg - ID input appreciated NIGEL - on home CPAP - not an issue while with Tracheostomy Hyperkalemia - resolved - worsening renal functions - Nephrology input appreciated - Replete electrolytes per ICU protocol - Kayexalate discontinued Hypernatremia-resolved - continue Free water flushes 300 q 6 hr - Avoiding nephrotoxins. - Monitor BMP - Creatinine 2.5-->2.7 -> 3.2 worsening - Nephrology consulted, Perforated right colon with ischemic colitis - s/p ex-lap, extended right hemicolectomy with primary ileocolic anastamosis - s/p Ex lap 01/05 for bleeding gastric ulcer - management per general surgery - Open abdominal wound-2 small open areas of incision with continued packing, Primapore dressing BID to abdomen per general surgery. Granulation tissue Acute protein calorie malnutrition - severe -Albumin level 1.1 -Nutrition reconsulted, for recommendations regarding supplementation - Beneprotein discontinued 02/26 - Albumin level diminished, 1.1 - Jevity goal rate to 65/hr @ goal Chronic hepatitis C - s/p interferon/ribavirin years ago - Liver biopsy 04/14/08 - monitor for liver failure -02/14 Ammonia level 31, 02/25- 41,Lactulose TID -Diminished responsiveness, alertness albumin level 1.1, will decrease dosage of narcotics 03/20 increased free fraction of drug may be contributing to decreased alertness - LFT's in am Gastric ulcer disease - EGD 12/26/15 showed 2 large gastric ulcers with active bleeding - status post epinephrine infusion and cauterization - To OR 01/05 with GI bleeding and hemorrhagic shock. -S/P gastrotomy with ligation of gastric ulcer, lysis of adhesions - Continue Protonix 40 g IV q12h Acute Anemia - secondary to acute blood loss - Hgb stable, will transfuse for hemoglobin less than 7 - last transfused 1 unit PRBC 02/02 - No obvious active bleeding. - Ferrous Sulfate 300mg bid Thrombocytopenia-resolved - Monitor CBC - Hep PLT ab negative on 12/03 - due to chronic liver disease Hyperglycemia of Critical Illness - Monitor blood glucose per ICU protocol - Levemir BID on hold, not clinically indicated at this time - Low-dose insulin sliding scale DC Critical illness polyneuropathy -Continue PT daily, out of bed to chair, -functional maintenance of extremities 4 Open wounds,B/L upper extremities multiple stages -Reconsult wound care 02/11 B/L upper extremities -Digits on hand reddened and edematous-wound care consulted, Plastic reconsulted: debridement 02/21. Facial spasms/twitching -02/12 CT brain normal, possible left mastoiditis -Per ENT - mastoiditis to be followed up on outpatient basis -02/14 MRI brain: no acute disease. - EEG 02/12-mouth and facial twitching noted. The discharge could be of epileptiform significant, excessive artifact study limited. -02/15 Resolution of facial twitching -EEG 02/17 moderate diffuse encephalopathy possibly may be slight increased tendency for seizure. Noted bifrontal sharps and slow sharp complex noted -Neurology reconsulted for follow-up - per neurology, Keppra 500mg q12h. Urinary Retention: - 02/16 Terazosin 5mg qhs. GI Prophylaxis: - Protonix IV BID DVT Prophylaxis: - SCDs - No chemical DVT Prophylaxis, OOB to chair and daily functional maintenance of extremities x 4 ACCESS: --PIV x 2. Discuss TREASURY ACCOUNTANT at bedside. Telephoned Mrs. Holcomb, discussed plan with decreasing narcotic administration, nephrology consult, and patient's current status. All questions answered. Level 2 Patient is now a DNR per his wishes as expressed by his family. Problem Qualifiers (1) Respiratory failure: Qualified Code: J96.00 - Acute respiratory failure, unspecified whether with hypoxia or hypercapnia (2) Altered mental status: Qualified Code: R41.0 - Delirium (3) Sepsis: Qualified Code: A41.9 - Sepsis, due to unspecified organism Chalino Mac MD Feb 29, 2016 10:18
--- NOTE | 2016-02-29 10:40 | RADRPT ---
EXAM DATE/TIME: 02/29/2016 10:12 [facility] COMPARISON: CHEST SINGLE AP, February 29, 2016, 5:32. INDICATIONS : Post bronchoscopy MEDICAL HISTORY : spleenectomy SURGICAL HISTORY : None. ENCOUNTER: Initial ACUITY: 4 - 6 days PAIN SCORE: Non-responsive. LOCATION: Bilateral chest FINDINGS: Tracheostomy is stable in position there is improvement in aeration with significant resolution of le ft upper lobe atelectasis. Some lower lobe consolidative changes persist. There appears to be some ef fusion. Right lung is stable and grossly clear. CONCLUSION: Improved aeration with reexpansion of the left upper lobe. Arnaldo Laguerre MD on February 29, 2016 at 10:37 Board Certified Radiologist. This report was verified electronically.
[2016-02-29] MEDS: CALCIUM ACETATE 667 MG CAP PO SCH ×2 (11:59→17:40)
--- NOTE | 2016-02-29 12:37 | HHI.NPPN ---
Subjective Renal Failure: Acute Interval History Renal function is worse today. Edema persists. Spoke with daughter and mother regarding clarification of aggressive goals. (Rivka Harrison) Review of Systems General General Remarks unable to obtain (Rivka Harrison) Objective Data Data 02/28/16 02/29/16 19:00 07:00 Intake Total 766 ml 1138 ml Output Total 1300 ml 1150 ml Balance -534 ml -12 ml IV Total 140 ml 176 ml Tube Feeding 506 ml 782 ml Tube Irrigant 180 ml Other 120 ml Output Urine Total 400 ml 700 ml Stool Total 900 ml 450 ml Vital Signs Date Time Temp Pulse Resp B/P Pulse Ox O2 Delivery O2 Flow Rate FiO2 02/29/16 10:00 96 02/29/16 09:42 100 100 02/29/16 08:00 60 02/29/16 08:00 76 02/29/16 08:00 97.5 76 18 99/63 97 02/29/16 07:00 100 Mechanical Ventilator 60 02/29/16 06:00 96 02/29/16 04:00 97.6 88 17 121/65 98 02/29/16 04:00 60 02/29/16 04:00 88 02/29/16 02:00 82 02/29/16 01:59 99 60 02/29/16 00:00 60 02/29/16 00:00 97.6 96 16 112/63 99 02/29/16 00:00 96 02/28/16 22:00 96 02/28/16 21:10 100 60 02/28/16 20:00 97.6 88 20 131/70 99 02/28/16 20:00 60 02/28/16 20:00 88 02/28/16 19:00 100 Mechanical Ventilator 60 02/28/16 18:00 96 02/28/16 16:00 98 02/28/16 16:00 60 02/28/16 16:00 97.6 98 28 132/60 100 02/28/16 15:39 100 60 02/28/16 14:00 88 (Rivka Harrison) -: 02/29/16 0404 02/29/16 0404 Microbiology 02/29/16 Gram Stain - Final, Resulted 02/29/16 Sputum Culture, Resulted Pending Imaging Last 72 hours Impressions Chest X-Ray 02/29/16 0600 Signed Impressions: Service Date/Time: Monday, February 29, 2016 05:32 - CONCLUSION: 1. Complete opacification left hemithorax and volume loss. This is new when compared with the prior exam. Ramone Hall MD Chest X-Ray 02/29/16 0000 Signed Impressions: Service Date/Time: Monday, February 29, 2016 10:12 - CONCLUSION: Improved aeration with reexpansion of the left upper lobe. Arnaldo Laguerre MD Chest X-Ray 02/27/16 1722 Signed Impressions: Service Date/Time: Saturday, February 27, 2016 17:49 - CONCLUSION: 1. Left upper and left lower lobe consolidation. This could be pneumonia with probable small pleural effusion. 2. Minimal patchy densities right lower lobe. Wojciech Lockhart MD Tubes & Lines: Sandoval Tubes & Lines Comment J tube, (Rivka Harrison B. STAY CUTTER) Physical Exam General Appearance: No Acute Distress, Comfortable (Rivka Harrison B. STAY CUTTER) Throat Throat Exam: Oral Mucosa [place] & Moist (Rivka Harrison B. STAY CUTTER) Pulmonary Resp Exam: Crackles, Rhonchi, Decreased Bases Resp Remarks trach, vented (Rivka Harrison B. STAY CUTTER) Cardiology CV Exam: Regular, Normal Sinus Rhythm (Rivka Harrison B. STAY CUTTER) Gastrointestinal/Abdomen GI Exam: Soft, Non-Tender GI Remarks mutiple surgical wounds mid abdomin, ileostomy right abdomen (Rivka Harrison B. STAY CUTTER) Musculoskeletal MS Exam: Joints Intact, Atrophy (Rivka Harrison B. STAY CUTTER) Integumentary Skin Exam: Warm, Dry (Rivka Harrison B. STAY CUTTER) Extremeties Extremities Exam: Pedal Pulses Palpable, Moderate Edema Extremeties Remarks hands and lower extremity edema (Rivka Harrison B. STAY CUTTER) Neurologic Neuro Exam: Awake, Unresponsive Neuro Remarks minimal movement, does not follow commands (Rivka Harrison B. STAY CUTTER) VTE Prophylaxis Device: SCDs (Rivka Harrison B. STAY CUTTER) Assessment/Plan Discussed Condition With: Parent, Daughter Assessment Summary: DEIRDRE/Acute Renal Failure Problem List: (1) Acute renal failure Plan: Renal function is worse again today, no previous hx of impairment unknown etiology of DEIRDRE, ATN from sepsis, or allergic interstitial nephritis are likely possibilities. It is noted that he has eosinophilia. nearly 5 g proteinuria, serum protein electrophoresis and serologies in process K acceptable, monitor he was on Bumex, but creatinine increased, therefore it was stopped, off IVF if renal function continues to deteriorate, he may need dialysis, poor prognosis , likely would not do well on dialysis he is a DNR, palliative care following, spoke with family, they are considering forgoing aggressive treatment including dialysis we will monitor his renal function today, follow up with family this afternoon regarding their decision daily renal panel builder output, electrolytes avoid nephrotoxins, minimize medications if able, change antibiotic if possible. (2) Necrotizing fasciitis Plan: ID and plastics following s/p I&D of arms pain control, wound care (3) Respiratory failure Plan: respiratory services appreciated remains on ventilator (4) Sepsis Plan: On ceftazidime, may be placed on fortaz he has pneumonia on CXR (5) Hyperammonemia (6) Encephalopathy (Rivka Harrison) Plan patient was seen and examined. Renal function is progressively worse. Discussed with patient's daughter. No immediate need for dialysis. Discussed poor prognosis with her. Dialysis will prolong his suffering. Consider change his antibiotic to a different class. (Jose Jauregui MD) Problem Qualifiers (1) Acute renal failure: Qualified Code: N17.9 - Acute renal failure, unspecified acute renal failure type (2) Respiratory failure: Qualified Code: J96.00 - Acute respiratory failure, unspecified whether with hypoxia or hypercapnia (3) Sepsis: Qualified Code: A41.9 - Sepsis, due to unspecified organism Rivka Harrison Feb 29, 2016 12:37 Jose Jauregui MD Feb 29, 2016 16:33
[2016-02-29 13:40] LABS: ALBUMIN SPE 2.01 GM/DL (3.50-5.00); ALPHA 1 GLOBULIN 0.42 GM/DL (0.11-0.29); ALPHA 2 GLOBULIN 1.05 GM/DL (0.22-1.00); BETA GLOBULINS (SPE) 0.58 GM/DL (0.53-1.03)
--- NOTE | 2016-02-29 16:38 | HHI.HCPN ---
Reason for visit a. To assist with evaluation and management of symptoms including: pain, malnutrition, wounds, AMS b. To assist medical decision maker(s) with: better understanding of current medical conditions; weighing benefits/burdens of medical treatment options; making medical treatment decisions. . Subjective/Interval History Patient seen and assessed in room 1317. Follow up visit for pain, malnutrition , AMS, wounds and goals. Daughter, Kezia, also present. Patient presents lying in bed,opens eyes only briefly to verbal stimuli. Tracheostomy to mechanical vent. FiO2 60%, PEEP 10, rate 10. Currently being transfused with leukocyte reduced RBC for HH of 7.0/22.0. Kidney functioning worse today. BUN: 94, creatinine 3.21, GFR 20. Microalb/Cr ratio: 4800. If renal functioning continues to decline he may require dialysis - patient with likely not do well on dialysis. Afebrile. WBC increased to 18.3 today 02/29/16 (17.7 yesterday). Sputum culture om 02/16/16 growing Stenotrophomonas Maltophilia, follow-up culture today pending. Urine culture 02/27/16 showing no growth to date. Chest x-ray this morning revealed ossification of the left hemothorax and volume loss. Completed Follow up chest x-ray showed improved aeration with reexpansion of left upper lobe status post bronchoscopy. Remains on Fortaz, infectious disease following. Patient has a history of chronic pain. Probable causes of plan include multiple surgeries, invasive lines, Sandoval, ostomy, NG tube, tracheostomy, immobility, wounds, bedbound status etc. On fentanyl patch 125mcg/h q3d and Oxycodone q 4 hours. Dilaudid and Acetaminophen available PRN for breakthrough pain. . . Family/friend interactions Met with patient's daughter, Kezia, to discuss patient recent decline, including DEIRDRE. Discussed treatment options, patient will likely not tolerate dialysis if renal functioning continue to deteriorate. . Advance Directives Living Will: Never completed Health Care Surrogate: Never completed Durable Power of Executive Vice President Of Sales: Never completed Advance Directive Specifics Health Care Surrogate(s): There is no designated health care surrogate. Per [place] statutes, in the absence of written advanced directives healthcare proxy falls to the patient's , Gopi Smith. . Documented care wishes: None available , Objective Vital Signs Date Time Temp Pulse Resp B/P Pulse Ox O2 Delivery O2 Flow Rate FiO2 02/29/16 14:00 86 02/29/16 12:00 60 02/29/16 12:00 89 02/29/16 12:00 97.5 89 16 123/70 100 02/29/16 10:00 96 02/29/16 09:42 100 100 02/29/16 08:00 60 02/29/16 08:00 76 02/29/16 08:00 97.5 76 18 99/63 97 02/29/16 07:00 100 Mechanical Ventilator 60 02/29/16 06:00 96 02/29/16 04:00 97.6 88 17 121/65 98 02/29/16 04:00 60 02/29/16 04:00 88 02/29/16 02:00 82 02/29/16 01:59 99 60 02/29/16 00:00 60 02/29/16 00:00 97.6 96 16 112/63 99 02/29/16 00:00 96 02/28/16 22:00 96 02/28/16 21:10 100 60 02/28/16 20:00 97.6 88 20 131/70 99 02/28/16 20:00 60 02/28/16 20:00 88 02/28/16 19:00 100 Mechanical Ventilator 60 02/28/16 18:00 96 02/28/16 16:00 98 02/28/16 16:00 60 02/28/16 16:00 97.6 98 28 132/60 100 Intake & Output 02/29/16 02/29/16 07:00 19:00 Intake Total 1138 ml 494 ml Output Total 1150 ml 900 ml Balance -12 ml -406 ml IV Total 176 ml 136 ml Tube Feeding 782 ml 238 ml Tube Irrigant 180 ml 120 ml Output Urine Total 700 ml 300 ml Stool Total 450 ml 600 ml . Physical Exam CONSTITUTIONAL/GENERAL: This is a frail critically ill middle-aged male patient on vent. TUBES/LINES/DRAINS: PIV 1, ostomy, trach, Sandoval, J tube SKIN: Skin appears thin and fragile. Dressing on upper extremities bilaterally. Pale. HEAD: Atraumatic. Normocephalic. EYES: No injection or drainage. No sclerae icterus. ENT: Hearing appears normal. Nose without bleeding or purulent drainage. NECK: Trachea midline. CARDIOVASCULAR: Regular rate and rhythm RESPIRATORY/CHEST: Breath diminished bilaterally. GASTROINTESTINAL: Ostomy with brown colored stool. GENITOURINARY: Without palpable bladder distension. Sandoval catheter in place. MUSCULOSKELETAL: Extremities without clubbing or cyanosis. Pitting edema +2/+3, bilateral hands and feet. NEUROLOGICAL: Remains encephalopathic, opens eyes only briefly to verbal stimuli. . Diagnostic Tests Laboratory Laboratory Tests Test 02/27/16 02/27/16 02/28/16 02/28/16 03:45 22:30 03:28 10:30 Sodium Level 136 MEQ/L 133 MEQ/L (136-145) (136-145) Potassium Level 5.1 MEQ/L 5.1 MEQ/L (3.5-5.1) (3.5-5.1) Chloride Level 99 MEQ/L 99 MEQ/L (98-107) (98-107) Carbon Dioxide Level 23.9 MEQ/L 25.5 MEQ/L (21.0-32.0) (21.0-32.0) Anion Gap 13 MEQ/L (5-15) 9 MEQ/L (5-15) Blood Urea Nitrogen 88 MG/DL (7-18) 92 MG/DL (7-18) Creatinine 2.70 MG/DL 3.12 MG/DL (0.60-1.30) (0.60-1.30) Estimat Glomerular Filtration 25 ML/MIN (>89) 21 ML/MIN (>89) Rate Random Glucose 103 MG/DL 159 MG/DL (74-106) (74-106) Calcium Level 8.9 MG/DL 8.9 MG/DL (8.5-10.1) (8.5-10.1) Urine Random Creatinine LESS THAN 13.0 MG/DL Urine Random Sodium 35 MEQ/L Urine Microalbumin/Creatinine 4800 MG/G CRE Ratio (0-30) Urine Color YELLOW (YELLW/STRAW) Urine Turbidity CLEAR (CLEAR) Urine pH 8.0 (5.0-8.5) Urine Specific [place] 1.009 (1.002-1.035) Urine Protein 100 mg/dL (NEG-TRACE) Urine Glucose (UA) NEG mg/dL (NEG) Urine Ketones NEG mg/dL (NEG) Urine Occult Blood TRACE (NEG) Urine Nitrite NEG (NEG) Urine Bilirubin NEG (NEG) Urine Urobilinogen LESS THAN 2.0 MG/DL (LESS THAN 2.0) Urine Leukocyte Esterase NEG (NEG) Urine RBC 13 /hpf (0-3) Urine WBC 17 /hpf (0-5) Urine Squamous Epithelial <1 /hpf (0-5) Cells Urine Renal Epithelial Cells <1 /hpf (NONE) Urine Bacteria RARE /hpf (NONE) Urine Mucus FEW /lpf (OCC) Microscopic Urinalysis Comment CULTURE INDICATED Total Bilirubin 0.4 MG/DL (0.2-1.0) Direct Bilirubin 0.2 MG/DL (0.0-0.2) Indirect Bilirubin 0.2 MG/DL (0.0-0.8) Aspartate Amino Transf 35 U/L (15-37) (AST/SGOT) Alanine Aminotransferase 15 U/L (12-78) (ALT/SGPT) Alkaline Phosphatase 311 U/L (45-117) Ammonia 37 MCMOL/L (11-32) Total Protein 5.4 GM/DL (6.4-8.2) Albumin 1.1 GM/DL 1.1 GM/DL (3.4-5.0) (3.4-5.0) Phosphorus Level 4.6 MG/DL (2.5-4.9) Test 02/28/16 02/29/16 02/29/16 02/29/16 14:12 04:04 05:45 10:53 Complement C3 95 MG/DL (90-180) Complement C4 15 MG/DL (10-40) Total Protein 5.3 GM/DL 5.7 GM/DL (6.0-7.6) (6.4-8.2) Albumin 2.01 GM/DL 1.1 GM/DL (3.50-5.00) (3.4-5.0) Albumin/Globulin Ratio 0.61 (1.39-2.23) Cpibx-4-Ohygwuicj 0.42 GM/DL (0.11-0.29) Lrswd-6-Fezvdkoju 1.05 GM/DL (0.22-1.00) Beta Globulins 0.58 GM/DL (0.53-1.03) Gamma Globulins 1.24 GM/DL (0.50-1.39) Electrophoresis Pathologist Comment Anti-Nuclear Antibody Screen NEG (NEG) White Blood Count 18.3 TH/MM3 (4.0-11.0) Red Blood Count 2.31 MIL/MM3 (4.50-5.90) Hemoglobin 7.0 GM/DL (13.0-17.0) Hematocrit 22.0 % (39.0-51.0) Mean Corpuscular Volume 95.2 FL (80.0-100.0) Mean Corpuscular Hemoglobin 30.4 PG (27.0-34.0) Mean Corpuscular Hemoglobin 31.9 % Concent (32.0-36.0) Red Cell Distribution Width 23.0 % (11.6-17.2) Platelet Count 293 TH/MM3 (150-450) Mean Platelet Volume 9.1 FL (7.0-11.0) Neutrophils (%) (Auto) 65.9 % (16.0-70.0) Lymphocytes (%) (Auto) 9.3 % (9.0-44.0) Monocytes (%) (Auto) 16.7 % (0.0-8.0) Eosinophils (%) (Auto) 7.4 % (0.0-4.0) Basophils (%) (Auto) 0.7 % (0.0-2.0) Neutrophils # (Auto) 12.1 TH/MM3 (1.8-7.7) Lymphocytes # (Auto) 1.7 TH/MM3 (1.0-4.8) Monocytes # (Auto) 3.1 TH/MM3 (0-0.9) Eosinophils # (Auto) 1.4 TH/MM3 (0-0.4) Basophils # (Auto) 0.1 TH/MM3 (0-0.2) CBC Comment AUTO DIFF Differential Comment AUTO DIFF CONFIRMED Platelet Estimate NORMAL (NORMAL) Platelet Morphology Comment NORMAL (NORMAL) Tear Drop Cells 1+ (NORMAL) Acanthocytes OCC (NORMAL) Sodium Level 136 MEQ/L (136-145) Potassium Level 5.1 MEQ/L (3.5-5.1) Chloride Level 100 MEQ/L (98-107) Carbon Dioxide Level 22.4 MEQ/L (21.0-32.0) Anion Gap 14 MEQ/L (5-15) Blood Urea Nitrogen 94 MG/DL (7-18) Creatinine 3.21 MG/DL (0.60-1.30) Estimat Glomerular Filtration 20 ML/MIN (>89) Rate Random Glucose 141 MG/DL (74-106) Calcium Level 8.8 MG/DL (8.5-10.1) Phosphorus Level 5.3 MG/DL (2.5-4.9) Magnesium Level 2.4 MG/DL (1.5-2.5) Total Bilirubin 0.3 MG/DL (0.2-1.0) Aspartate Amino Transf 35 U/L (15-37) (AST/SGOT) Alanine Aminotransferase 14 U/L (12-78) (ALT/SGPT) Alkaline Phosphatase 332 U/L (45-117) Blood Gas Puncture Site LT BRACHIAL Blood Gas Patient Temperature 98.6 Blood Gas HCO3 22 mmol/L (22-26) Blood Gas Base Excess -2.8 mmol/L (-2-2) Blood Gas Oxygen Saturation 93 % (90-100) Arterial Blood pH 7.35 (7.380-7.420) Arterial Blood Partial 41 mmHg (38-42) Pressure CO2 Arterial Blood Partial 83 mmHg Pressure O2 (61-120) Arterial Blood Oxygen Content 13.5 Vol % (12.0-20.0) Arterial Blood 1.4 % (0-4) Carboxyhemoglobin Arterial Blood Methemoglobin 0.7 % (0-2) Blood Gas Hemoglobin 10.3 G/DL (12.0-16.0) Oxygen Delivery Device VENTILATOR Blood Gas Ventilator Setting PRVC/AC Blood Gas Inspired Oxygen 60 % Blood Type B POSITIVE Antibody Screen NEGATIVE Crossmatch Leukocyte-Reduced Red Blood Cells Blood Bank Comment . Result Diagram: 02/29/16 0404 02/29/16 0404 Microbiology Microbiology Date/Time Procedure Status Source Growth 02/27/16 22:30 Urine Culture - Final Complete Urine Clean Catch NO GROWTH IN 48 HOURS. 02/29/16 01:00 Gram Stain - Final Resulted Sputum Endotracheal 02/29/16 01:00 Sputum Culture Resulted Sputum Endotracheal Pending . Imaging Last 72 hours Impressions Chest X-Ray 02/29/16 0600 Signed Impressions: Service Date/Time: Monday, February 29, 2016 05:32 - CONCLUSION: 1. Complete opacification left hemithorax and volume loss. This is new when compared with the prior exam. Ramone Hall MD Chest X-Ray 02/29/16 0000 Signed Impressions: Service Date/Time: Monday, February 29, 2016 10:12 - CONCLUSION: Improved aeration with reexpansion of the left upper lobe. Arnaldo Laguerre MD Chest X-Ray 02/27/16 1722 Signed Impressions: Service Date/Time: Saturday, February 27, 2016 17:49 - CONCLUSION: 1. Left upper and left lower lobe consolidation. This could be pneumonia with probable small pleural effusion. 2. Minimal patchy densities right lower lobe. Wojciech Lockhart MD . Procedures 12/02/15: Intubated 12/02/15: NG tube placed 12/02/15: Right subclavian central line placed 12/14/15: Left IJ central line placement BEV PEG tube Ileostomy 12/28/15: Tracheostomy 12/30/15: Right subclavian central venous line placed 01/05/16: Right axillary arterial line placement 01/05/16: Right IJ central line placement 01/05/16: Bronchoscopy 01/17/16: EGD 02/22/16:2 OR for wound debridement 02/29/16: Bronchoscopy . . . 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 Probable causes of plan include multiple surgeries, invasive lines, Sandoval, ostomy, NG tube, tracheostomy , immobility, wounds, bedbound status etc. On fentanyl patch 125mcg/h q3d. and Oxycodone q4 hours ATC. Dilaudid and Acetaminophen available as needed for breakthrough pain. . (2) Malnutrition 0-10 Scale: Unable to quantify Comment: . (3) Wounds, multiple Comment: Patient taken to the OR for debridement on 02/22/16. Dressings on bilateral upper extremities remain clean, dry and intact. (4) Altered mental status 0-10 Scale: Unable to quantify (He is awake but appears "out of it". He does not attempt to respond to questions by mouthing words. Spoke with Dr. Poole regarding patient's altered mental status. CT head today showed no acute intracranial abnormalities, new opacification of the left mastoid air cells, clinical evaluation for acute left mastoiditis suggested. Ammonia level at 31. EEG pending.) Comment: Diminished responsiveness. Albumin level 1.1. Plan to dosage of narcotics secondary to increased free fraction of drug may be contributing to decreased alertness. . Pertinent Non-Medical Issues Psychosocial:Patient was born in [facility], moving to [place] at a young age. He has 2 siblings who live locally (Feroz and Janeen). 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 The patient met his current (Gopi Smith) through mutual friends and they have now been for approximately 20 years. The patient has 1 adult daughter (Kezia) from a previous relationship. She is 30 years old. Spiritual:No episcopalian affiliation Legal: There is no designated health care surrogate. Per [place] statutes, in the absence of written advanced directives healthcare proxy falls to the patient 's , Gopi Smith. Ethical issues impacting care: None at this time. . Important Contacts Gopi Smith, spouse: [phone] Kezia Starks, daughter: [phone] . . Prognosis Patient is a 55 year old male with a long history of chronic illnesses. PMH is significant for Hep C, NIGEL, gout, RA, HTN, chronic pain, and migraines. Patient was admitted on 12/02/15 with sepsis due to Staph Aureus hand infection and E. Coli bacteriemia. Patient has been to the OR multiple times for GI bleed. Patient has had persistent anemia/thrombocytopenia requiring multiple transfusions. S/p tracheotomy, ileostomy, BEV 2, and G- tube, patient remains critically ill with an overall poor prognosis. . Code Status: No Code Plan * NO CODE * Decision-making: HCP: GOPI SMITH (). The patient is currently not capacitated to participate in decisions related to medical treatment goals. There is no designated health care surrogate. Per [place] statutes, in the absence of written advanced directives healthcare proxy falls to the patient's . * Goals: GOALS REMAIN AGGRESSIVE up to the point of cardiopulmonary resuscitation. * Discussed with Dr. Mac, Dr. Fernández, Dr. Jauregui, Rivka RUIZ and patient's nurse Maria Luz. * Kezia (daughter) is the designated family spokesperson, however she is not the health care proxy. She indicates that although she does not want to prolong her father's suffering if he will not survive this hospitalization, she would like her family's support. Some family members are coming in to town this weekend, and daughter (Kezia) is requesting a family meeting 03/01/15 with all family members so their questions can be answered. Dr. Mac is aware. * Afebrile. WBC increased to 18.3 today 02/29/16 (17.7 yesterday). Sputum culture om 02/16/16 growing Stenotrophomonas Maltophilia, follow-up culture today pending. Urine culture 02/27/16 showing no growth to date. Remains on Fortaz, infectious disease following. * Chest x-ray this morning revealed ossification of the left hemothorax and volume loss. Completed Follow up chest x-ray showed improved aeration with reexpansion of left upper lobe status post bronchoscopy. * Kidney functioning worse today. BUN: 94, creatinine 3.21, GFR 20. Microalb/ Cr ratio: 4800. Nephrology following. If renal functioning continues to decline he may require dialysis - patient with likely not do well on dialysis. * Symptom managementpain: Patient has a history of chronic pain. Probable causes of plan include multiple surgeries, invasive lines, Sandoval, ostomy, NG tube, tracheostomy, immobility, wounds, bedbound status etc. On fentanyl patch 125mcg/h q3d and Oxycodone q4 hours ATC. PRN Dilaudid and oxycodone available, being sparingly used. * Symptom managementaltered mental status: Diminished responsiveness. Albumin level 1.1. Recommendations to dosage of narcotics secondary to increased free fraction of drug may be contributing to decreased alertness. * FAMILY REQUESTING KEPPRA BE DISCONTINUED, CONCERNED IT MAY BE CONTRIBUTING TO PATIENTS DECREASED MENTATION. * Palliative care will continue to follow this patient throughout his hospitalization to establish trust, assist with symptom management and clarification of medical treatment goals. . Attestation To help prompt me to consider important information that might be impacting today's encounter and assessment, information from prior notes written by myself or my colleagues may have been "brought forward" into today's note. My signature on this note, however, is an attestation that I personally performed the exam, history, and/or decision-making noted today, and, unless otherwise indicated, the interactions with patient, family, and staff as well as the review of records all occurred today. I also attest that the listed assessment and stated plan reflect my best clinical judgment today based on the combination of historical information, prior notes, and today's exam/ interactions. When time spent is documented, it refers only to time spent today by the signer, or if indicated, combined time spent today by collaborating physician/nurse practitioner. . Leah Pop Feb 29, 2016 16:38
[2016-02-29] MEDS ORDERED: fentaNYL 75 MCG/HR PATCH TD SCH (18:00)
[2016-02-29] MEDS ORDERED: REMOVE OLD PATCH TD ONE ×2 (18:00)
[2016-02-29] MEDS: CHLORHEXIDINE 0.12% (ORAL KIT) 15 ML CUP MT SCH (20:00)
[2016-02-29] MEDS: TERAZOSIN HCL 5 MG CAP PO SCH (20:35)
[2016-02-29] MEDS: RESP: ALBUTEROL 2.5 MG/IPRATROPIUM 0.5 MG NEB (PRN) NEB (20:44)
[2016-03-01] VITALS (12 sets, daily range): BP systolic 114–135; BP diastolic 67–74; PULSE 75–89; RESP 15–20; TEMP 96.5–97.8; O2SAT 98–100
[2016-03-01] MEDS: oxyCODONE HCL ORAL CONC 20 MG/ML SYRINGE PO SCH ×3 (01:00→08:00)
[2016-03-01] MEDS: cefTAZidime INJ 2,000 MG in SODIUM CHLORIDE 0.9% INJ 100 ML IV SCH (01:11)
[2016-03-01] MEDS: METOPROLOL TARTRATE 25 MG TAB TUBE SCH ×2 (01:11→05:33)
[2016-03-01] MEDS: FREE WATER G-TUBE SCH ×2 (03:00→08:01)
[2016-03-01] MEDS: CHLORHEXIDINE GLUCONATE 2 % 1 PACK (2 CLOTHS) TOP SCH (04:00)
[2016-03-01 05:05] LABS: AUTOMATED NEUTROPHIL # 13.3 TH/MM3 (1.8-7.7); BASOPHIL # 0.1 TH/MM3 (0-0.2); BASOPHIL % 0.7 % (0.0-2.0); EOSINOPHIL # 1.7 TH/MM3 (0-0.4); EOSINOPHIL % 8.1 % (0.0-4.0); LYMPH % 8.1 % (9.0-44.0); LYMPHOCYTE # 1.7 TH/MM3 (1.0-4.8); MEAN CORPUSCULAR HEMOGLOBIN 30.5 PG (27.0-34.0); MEAN CORPUSCULAR HGB CONC 32.5 % (32.0-36.0); NEUT % 65.1 % (16.0-70.0); PLATELET COUNT 259 TH/MM3 (150-450); WHITE BLOOD COUNT 20.5 TH/MM3 (4.0-11.0)
[2016-03-01 05:06] LABS: HEMO FLAGS AUTO DIFF
[2016-03-01 05:16] LABS: BICARBONATE 21.2 MEQ/L (21.0-32.0); MAGNESIUM 2.5 MG/DL (1.5-2.5)
[2016-03-01 05:18] LABS: POTASSIUM 5.5 MEQ/L (3.5-5.1)
[2016-03-01] MEDS: PANTOPRAZOLE SODIUM 40 MG VIAL IV PUSH SCH (05:33)
[2016-03-01 06:19] LABS: BLOOD GAS BASE EXCESS -4.3 mmol/L (-2-2); BLOOD GAS CARBOXYHEMOGLOBIN 1.5 % (0-4); BLOOD GAS HCO3 21 mmol/L (22-26); BLOOD GAS METHEMOGLOBIN 0.6 % (0-2); BLOOD GAS O2 HGB SATURATION 84 % (90-100); BLOOD GAS OXYGEN CONTENT 11.8 Vol % (12.0-20.0); BLOOD GAS PCO2 41 mmHg (38-42); BLOOD GAS PO2 56 mmHg (61-120); BLOOD GAS TOTAL HGB 9.9 G/DL (12.0-16.0); TEMP CORR TO 98.6
[2016-03-01 06:20] LABS: CRITICAL VALUE YES; OXYGEN DEVICE VENTILATOR
[2016-03-01 06:21] LABS: DRAW SITE LT BRACHIAL; FIO2 40 %; NUMBER OF ARTERIAL PUNCTURES 1; STAT NO; VENT SETTINGS PRVC/AC
--- NOTE | 2016-03-01 06:34 | RADRPT ---
EXAM DATE/TIME: 03/01/2016 05:19 [facility] COMPARISON: CHEST SINGLE AP, February 29, 2016, 10:12. INDICATIONS : Please evaluate after respiratory failure. MEDICAL HISTORY : Hypertension. Hiatal hernia. Arthritis, C-diff, Osteopenia, Gout, Sleep apnea SURGICAL HISTORY : Tonsillectomy. Splenectomy. Inguinal hernia repair. ENCOUNTER: Subsequent ACUITY: One week PAIN SCORE: Non-responsive. LOCATION: Bilateral chest FINDINGS: The cardiac silhouette is enlarged in transverse diameter. A tracheostomy tube is in place in the mid line. There is patchy alveolar disease on the left compatible with edema or pneumonia. There has been no significant change when compared to the prior exam. CONCLUSION: 1. Patchy alveolar disease characteristic of edema or pneumonia. There has been no significant currie e when compared to the prior exam. Ramone Hall MD on March 01, 2016 at 6:32 Board Certified Radiologist. This report was verified electronically.
[2016-03-01] MEDS: FERROUS SULFATE 300 MG /5ML UDC TUBE SCH (08:00)
[2016-03-01] MEDS: CHLORHEXIDINE 0.12% (ORAL KIT) 15 ML CUP MT SCH (08:00)
[2016-03-01] MEDS: LACTULOSE SYRUP 20 GM/30 ML CUP PO SCH (08:00)
[2016-03-01] MEDS: CALCIUM ACETATE 667 MG CAP PO SCH (08:01)
[2016-03-01] MEDS: MULTIVITAMIN TAB G-TUBE SCH (08:01)
[2016-03-01 10:23] LABS: BANDS 8 % (0-6); EOSINOPHILS 2 % (0-4); METAMYELOCYTES 1 % (0-1); NEUTROPHIL # MANUAL DIFF 15.4 TH/MM3 (1.8-7.7); PLATELET ESTIMATE SMEAR NORMAL (NORMAL); PLATELET MORPHOLOGY NORMAL (NORMAL); POLYS (SEG NEUTROPHILS) 66 % (16-70); SCAN/DIFF FINAL DIFF MANUAL; WBC DIFF SAMPLE 100
--- NOTE | 2016-03-01 10:26 | HHI.CCPN ---
Subjective Remarks/Hospital Course 55-year-old male brought by EMS with altered mental status. He has history of chronic opiate medications including methadone and morphine that he takes for pain management and hence they gave him Narcan IV which brought the GCS up to 13. The blood glucose was 74. He has open wounds from his right upper and bilateral lower extremities. He has history of hepatitis C. Last week he was pealing and eating shrimps. Bedside blood sugar was 76 in the ER. He was tachycardic in 1 teens and was intubated in the ED for airway protection. Admitted to ICU with sepsis due to Staph Aureus hand infection and E. Coli bacteriemia. Hospital course complicated by perforated ascending colon with extended right hemicolectomy, primary ileocolic anastamosis, open abdomen, septic shock, acute hypoxic and hypercarbic respiratory failure 12/19. Taken back to the OR 12/20 afternoon for washout and completion colectomy. 12/25 Hemoglobin dropped to 4.1. Noted to have bloody drainage from G-tube and dorsal ileostomy with black stool output due to 2 gastric ulcers bleeding, stomach a significant part had decreased discoloration indicating probable ischemia. s/p epi injection and cauterization. 12/27Tracheostomy placed. 01/06: Underwent exploratory laparotomy with findings of bleeding gastric ulcer which was oversewn by Dr. Verdin abdomen left open with wound VAC in place. Now closed. On trach collar occasionally alternation intermittently with a CPAP. 02/10 Tmax 100.0. The patient has been maintain on CPAP 15 over 5/24 hours without difficulty. O2 saturations greater than 92%. Plan for trach collar trials today. 02/11 Tmax 98.4. The patient was unable to begin trach collar trials yesterday. The patient became tachypnea, RR 50's on CPAP at 4:30 yesterday requiring mechanical ventilation being placed on a rate.Patient has been maintained on mechanical ventilation overnight without any respiratory distress. O2 saturation remains 9798%. No episodes of nausea last night the patient tolerated tube feeds at 50/cc, will advance to goal today. 02/12 Afebrile. This a.m., upon examination, the patient spontaneously had eyes open but was not responding to commands as previously. Noted facial twitching eye twitching specifically the right side of face. The patient was not mouthing any words. Concern for subclinical seizure activity, or elevated ammonia levels. Ammonia level drawn, CT scan obtained EEG pending. Patient also did not tolerate tube feeds overnight. 02/13. Patient has tolerated tube feeds for the last 24 hours, noted albumin level decreased slightly from 1.1-1.0. Nutrition reconsulted for possible supplementation aids. Patient underwent EEG yesterday,, inconclusive could be of epileptiform significant, study was limited due to excessive artifact. CT brain revealed possible left mastoiditis, ammonia level not elevated .Upon examination, patient continues to have facial twitching, intermittently. 02/14 Afebrile. The patient continues to tolerate tube feeds currently at 40 cc /hour, no nausea last evening. Continue noted facial twitching by staff, the patient will go undergo MRI studies today. The patient was able to tolerate CPAP trials for 12 hours yesterday, and class placed back on the vent at 6 PM. 02/15: afebrile. neuro symptoms have resolved. now talking and interactive. smiling. 02/16: afebrile. mental status back to baseline. tolerating cpap 18/5/40% today. interactive. I had a long conversation with the Sraah family today about the fact that, while we continue to make small progresses in his acute illnesses, we have made huge steps backwards in overall functioning. He is much more malnurished and deconditioned than he was on admission, and he is now starting to get opportunistic type infections. All of these point to an overall decline , and I am concerned that he may not survive to hospital discharge, but succumb to repeat medical complications from his now chronic medical diseases. I expressed that I would continue to remain aggressive as long as he wanted me to , but the family needed to start to think about very realistic goals of care, and if we continued to decline in overall functional status and deconditioning, we may consider if we have an acute decline, transitioning to a more comfort type goals. They expressed understanding of this. 02/17: No acute events overnight. Conversation with family per Dr. Chavez yesterday. Patient was placed on Hytrin yesterday. Patient is alert and responsive, mouthing words. Patient continues to tolerate CPAP. 02/18: Afebrile. The patient tolerated CPAP for 5 hours today. Evaluation on right hand digits remain edematous and reddened, noted Adaptic adherence to tendons. Wound care we consulted regarding clarification of wound care instructions. 02/19: The patient tolerated trach collar trials for approximately 30 minutes yesterday. The patient continues on CPAP trials today. Neurology was consulted regarding repeat EEG showing several spikes possible epileptiform activity. Wound care was reconsulted regarding edematous reddened digits right hand and left forearm. 02/20: still with CPAP trials. per plastics, plan for debridement of hand tomorrow in OR. Neuro started Keppra 500mg q12h. otherwise, no acute changes. 02/21: no clinical changes. does have an area of non-blanchable redness over left ear lobe. this is not painful for him. it is the side of his head that he prefers to lay on when resting. We are placing bacitracin on it and keeping pressure off of this area. I had a long family meeting with the [facility] family and palliative care. We talked about long-term goals, and some possibilities if he does not improve, but continues to have a very indolent downward decline. Both his stepdaughter and have agreed that if he were to decline to the point of needing CPR for cardiac arrest, he would not want to live in that deconditioned state, even if we were able to regain circulation. Thus, I have made the patient DNR. Otherwise, plan for OR today for hand debridement. 02/22: debridement of wounds yesterday. still doing well on CPAP, but fails t- piece for tachycardia and tachypnea. Cr bumped from 1.3 to 1.9. clinically he appears slightly dehydrated, even though he has such poor nutritional status that he remains anasarcic. 02/23: no changes clinically. OOB to chair. tolerated SBT all night last night, but tired out today and required rate on vent given fatigue. Cr continues to rise despite gentle hydration. 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 02/24: The patient failed trach collar trials yesterday. CPAP initiated this morning. Patient's urine output unchanged, with a liter of LR bolus yesterday. Creatinine slightly increased today. 02/25: The patient remained out of bed in the chair for approximately 3 hours today. The patient was bolused with 1 L of IV fluid, secondary to low urinary output. The patient failed T piece trials, lasting only 20 minutes. 02/26: The patient was bolused with a liter fluid yesterday, increased urine output overnight totaling 650 cc for 12 hours. Creatinine elevated. Renal consult, appreciate recommendations The patient's mentation was noted to be diminished this morning, ammonia level 41. Will begin lactulose. CPAP trials lasted 9 hours yesterday, unable to successfully perform T piece trial. 02/27 worsening renal function. Family debating use of HD if needed` 02/28 complete opacification of l;eft hemothorax, bronchoscopy 03/01 worsening renal function Objective Vital Signs Date Time Temp Pulse Resp B/P Pulse Ox O2 Delivery O2 Flow Rate FiO2 03/01/16 09:06 100 50 03/01/16 08:00 83 03/01/16 08:00 96.7 16 122/74 03/01/16 07:00 Mechanical Ventilator Intake and Output 02/29/16 02/29/16 03/01/16 08:00 16:00 00:00 Intake Total 701 ml 494 ml 1318 ml Output Total 325 ml 900 ml 650 ml Balance 376 ml -406 ml 668 ml Result Diagram: 03/01/16 0327 03/01/16 0327 Other Results Microbiology Date/Time Procedure Status Source Growth 02/27/16 22:30 Urine Culture - Final Complete Urine Clean Catch NO GROWTH IN 48 HOURS. Laboratory Tests Test 03/01/16 06:09 Blood Gas Puncture Site LT BRACHIAL Blood Gas Patient Temperature 98.6 Blood Gas HCO3 21 mmol/L (22-26) Blood Gas Base Excess -4.3 mmol/L (-2-2) Blood Gas Oxygen Saturation 84 % (90-100) Arterial Blood pH 7.32 (7.380-7.420) Arterial Blood Partial 41 mmHg (38-42) Pressure CO2 Arterial Blood Partial 56 mmHg Pressure O2 (61-120) Arterial Blood Oxygen Content 11.8 Vol % (12.0-20.0) Arterial Blood 1.5 % (0-4) Carboxyhemoglobin Arterial Blood Methemoglobin 0.6 % (0-2) Blood Gas Hemoglobin 9.9 G/DL (12.0-16.0) Oxygen Delivery Device VENTILATOR Blood Gas Ventilator Setting PRVC/AC Blood Gas Inspired Oxygen 40 % Imaging Last Impressions Chest X-Ray 02/11/16 0600 Signed Impressions: Service Date/Time: Thursday, February 11, 2016 05:41 - CONCLUSION: Rotated study demonstrating no significant interval change. Owen Arzola MD Upper Extremity Ultrasound 01/30/16 0000 Signed Impressions: Service Date/Time: Saturday, January 30, 2016 11:18 - CONCLUSION: Limited exam without thrombus identified. Raudel Mckinney MD FACR Thoracentesis 01/28/16 0000 Signed Impressions: Service Date/Time: Thursday, January 28, 2016 12:54 - CONCLUSION: Uncomplicated CT-guided thoracentesis. Ramone Hall MD Abdomen/Pelvis CT 01/23/16 0800 Signed Impressions: Service Date/Time: Saturday, January 23, 2016 09:05 - CONCLUSION: Relative to the prior study the marked distention of the stomach is reduced. There is a persistent 5 cm left upper quadrant sub-diaphragmatic fluid collection and drain in the left upper quadrant. Patient is post splenectomy. Jejunostomy is in place and ostomy is noted in the right lower abdomen. No free fluid or free air is appreciated and there is no evidence of obstruction. Bilateral pleural effusions persists small but slightly larger on the right with left lower lobe consolidation. Jared Medina MD ADDENDUM: I have reviewed the images with respect to her request made for left subdiaphragmatic drainage of a fluid collection. No fluid collection is observed within the left upper quadrant. There is residual splenic tissue that measures 5 cm in diameter with Hounsfield units 62. The stomach fundus extends up into the subdiaphragmatic location. No subdiaphragmatic fluid collection is observed. Surgical drains are noted. Osmar Chavez Jr., MD Chest CT 01/05/16 0000 Signed Impressions: Service Date/Time: Tuesday, January 05, 2016 23:15 - CONCLUSION: 1. Persistent left lower lobar consolidation. Improved consolidative infiltrates in the right lower lung. 2. Interval increase size bilateral pleural effusions , left greater than right. Osmar Alegria MD Celiac/Hepatic Arteriogram 12/27/15 0000 Signed Impressions: Service Date/Time: December 13:41 - CONCLUSION: 1. No active GI bleed identified. Robert Mckinney MD Abdomen X-Ray 12/18/15 0000 Signed Impressions: Service Date/Time: Friday, December 18, 2015 16:05 - CONCLUSION: Feeding tube tip is at the gastric antrum. Arnaldo Elias MD Head CT 12/02/15 1013 Signed Impressions: Service Date/Time: Wednesday, December 02, 2015 11:00 - CONCLUSION: 1. No intracranial abnormality is seen. 2. Air-fluid level in the right maxillary sinus. Arnaldo Reyes MD Last 24 hours Impressions Chest X-Ray 02/05/16 0600 Signed Impressions: Service Date/Time: Friday, February 05, 2016 04:11 - CONCLUSION: Worsening/developing effusions and basilar consolidation, currently left worse than right. Arnaldo Elias MD Objective Remarks GENERAL: Middle-aged chronically critically ill, lying in bed , awake, alert, interactive. HEENT: NCAT. mucous membranes moist. NECK: [address], no active bleeding, no evidence of infection. RESPIRATORY: Normal respiratory rate. Breath sounds present bilaterally, clear without wheezing or rhonchi. CARDIOVASCULAR: Regular, tachycardic. HR 110's. No murmurs rubs or gallops. GASTROINTESTINAL: J tube in place with tube feeds running @ 40cc/hr.Ostomy with brown colored stool approx 100cc MUSCULOSKELETAL: Pitting edema 2+ bilateral feet and hands. Gauze dressing bilateral upper extremity. Multiple open wounds in the lower extremity with gauze dressing. NEURO: Awake. Alert, interactive. RASS 0, CAM -. mouthing words. 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 Miller). - Trach exchanged 8.0 Shiley with cuff on 01/19 - DuoNeb q6h and as needed - hold CPAP trials due to complete opacification of the left hemothorax - Bronchoscopy 02/28 and increase PEEP - FIO2 40%, CXR w/o significant changes Leukocytosis Bandemia - ID following, Dr. Becerra - WBC 18->18 today Sputum Culture 02/12 Stenotrophomonas Maltophilia Sputum Culture 02/07 Stenotrophomonas Maltophilia Blood Culture 12/23 NGTD Urine Culture 02/02 neg - ID input appreciated NIGEL - on home CPAP - not an issue while with Tracheostomy Hyperkalemia - present again - worsening renal functions - Nephrology input appreciated - Replete electrolytes per ICU protocol - Kayexalate x 1 now - i.v. fluid bolus Hypernatremia-resolved - continue Free water flushes 300 q 6 hr - Avoiding nephrotoxins. - Monitor BMP - Creatinine 2.5-->2.7 -> 3.2 - 3.3 worsening - Nephrology consulted, Perforated right colon with ischemic colitis - s/p ex-lap, extended right hemicolectomy with primary ileocolic anastamosis - s/p Ex lap 01/05 for bleeding gastric ulcer - management per general surgery - Open abdominal wound-2 small open areas of incision with continued packing, Primapore dressing BID to abdomen per general surgery. Granulation tissue Acute protein calorie malnutrition - severe -Albumin level 1.1 -Nutrition reconsulted, for recommendations regarding supplementation - Beneprotein discontinued 02/26 - Albumin level diminished, 1.1 - Jevity goal rate to 65/hr @ goal Chronic hepatitis C - s/p interferon/ribavirin years ago - Liver biopsy 04/14/08 - monitor for liver failure -Diminished responsiveness, alertness albumin level 1.1, will decrease dosage of narcotics 03/20 increased free fraction of drug may be contributing to decreased alertness - LFT's stable Gastric ulcer disease - EGD 12/26/15 showed 2 large gastric ulcers with active bleeding - status post epinephrine infusion and cauterization - To OR 01/05 with GI bleeding and hemorrhagic shock. -S/P gastrotomy with ligation of gastric ulcer, lysis of adhesions - Continue Protonix 40 g IV q12h Acute Anemia - secondary to acute blood loss - Hgb stable, will transfuse for hemoglobin less than 7 - last transfused 1 unit PRBC 02/02 - No obvious active bleeding. - Ferrous Sulfate 300mg bid Thrombocytopenia-resolved - Monitor CBC - Hep PLT ab negative on 12/03 - due to chronic liver disease Hyperglycemia of Critical Illness - Monitor blood glucose per ICU protocol - Levemir BID on hold, not clinically indicated at this time - Low-dose insulin sliding scale DC Critical illness polyneuropathy -Continue PT daily, out of bed to chair, -functional maintenance of extremities 4 Open wounds,B/L upper extremities multiple stages -Reconsult wound care 02/11 B/L upper extremities -Digits on hand reddened and edematous-wound care consulted, Plastic reconsulted: debridement 02/21. Facial spasms/twitching -02/12 CT brain normal, possible left mastoiditis -Per ENT - mastoiditis to be followed up on outpatient basis -02/14 MRI brain: no acute disease. - EEG 02/12-mouth and facial twitching noted. The discharge could be of epileptiform significant, excessive artifact study limited. -02/15 Resolution of facial twitching -EEG 02/17 moderate diffuse encephalopathy possibly may be slight increased tendency for seizure. Noted bifrontal sharps and slow sharp complex noted -Neurology reconsulted for follow-up - per neurology, Keppra 500mg q12h. Urinary Retention: - 02/16 Terazosin 5mg qhs. GI Prophylaxis: - Protonix IV BID DVT Prophylaxis: - SCDs - No chemical DVT Prophylaxis, OOB to chair and daily functional maintenance of extremities x 4 ACCESS: --PIV x 2. Discuss FIXED CAPITAL CLERK at bedside. Telephoned Mrs. Holcomb, discussed plan with decreasing narcotic administration, nephrology consult, and patient's current status. All questions answered. Level 2 Patient is now a DNR per his wishes as expressed by his family. Problem Qualifiers (1) Respiratory failure: Qualified Code: J96.00 - Acute respiratory failure, unspecified whether with hypoxia or hypercapnia (2) Altered mental status: Qualified Code: R41.0 - Delirium (3) Sepsis: Qualified Code: A41.9 - Sepsis, due to unspecified organism Chalino Mac MD Mar 01, 2016 10:26
[2016-03-01] MEDS ORDERED: HYDROmorphone HCL PF 4 MG/ML VIAL IV PUSH ONE (13:15)
[2016-03-01] MEDS ORDERED: LORazepam 2 MG/ML VIAL IV ONE ×2 (13:15→15:45)
[2016-03-01] MEDS ORDERED: HYOSCYAMINE 0.5 MG/ML AMP IV ONE (13:15)
--- NOTE | 2016-03-01 13:45 | HHI.PR ---
Subjective Remarks I had a family meeting with the entire extended Sarah family today. I have taken care of Mr. Smith intermittently for the last 3 months. We had a long conversation about his care up to this point, and going forward. He has had a chronic downhill course including severe malnutrition despite aggressive nutrition goals, a number of poorly healing wounds, and most recently, worsening acute kidney injury which appears that it will require imminent renal replacement therapy. I have had multiple prior goals of care discussions with the Sarah's which has focused around finding a point at which Mr. Smith would not want to continue to fight aggressively. Today, the family as a whole agrees that in his current situation, as tired and fatigued chronically as he is , with so many medical problems, that he would not want to undergo renal replacement therapy, even if it were temporary, and this is that "line in the sand" that he would say he did not want further treatment. They have had the advantage of being able to talk with him, while he was lucid, and to talk about what he would and wouldn't want, and they all agree that he would not want dialysis, even short term, as this would finally be a quality of life and a struggle that he would not be acceptable with. We talked about the options of conservative management without RUNNER OUT versus a transition to hospice care versus a palliative withdraw of life supporting measures. I explained that to the best of our knowledge, conservative measures without RUNNER OUT would likely only serve to prolong his life, and likely with more suffering and volume overload, without benefit. I explained that we could consider a transition to hospice on the ventilator to allow him some time to spend with his family, but in his current state with likely uremic encephalopathy, his family feels that he is not meaningfully interactive, and that he would not benefit from prolonging the comfort and dying process. Thus, they have asked and elected to pursue palliative withdraw of life supporting measures. I agree that this is an appropriate plan of care for this gentleman at this venture. Given his declining medical course and poorly healing wounds, together with his other comorbidities and now with severe acute kidney injury, I agree with the transition to comfort measures. Congruent with the Mr. Smith's wishes as expressed by his family and as he has previously discussed with them and myself, we will pursue palliative withdraw of life-support measures. I have ordered pain and sedation medication for him. Given his significant opiate tolerance chronically, I have ordered dilaudid 6mg iv x 1, then 4mg iv q10min to ensure that he has adequate pain control. If Mr. Smith survives the night, we will plan to transition him to a hospice facility in the morning. Jeyson Fernández MD Mar 01, 2016 13:45
[2016-03-01] MEDS ORDERED: HYOSCYAMINE 0.5 MG/ML AMP IV PRN (15:45)
[2016-03-01] MEDS ORDERED: ACETAMINOPHEN 650 MG SUPP PR PRN (15:45)
[2016-03-01] MEDS: HYDROmorphone HCL PF 4 MG/ML VIAL IV PUSH PRN ×14 (17:22→23:41)
[2016-03-01] MEDS: LORazepam 2 MG/ML VIAL IV PRN ×11 (17:44→23:40)
[2016-03-01] MEDS: SODIUM CHLORIDE 0.9% FLUSH 5 ML FLUSH IVF PRN ×7 (19:24→23:41)
[2016-03-02] MEDS: LORazepam 2 MG/ML VIAL IV PRN ×18 (00:11→13:26)
[2016-03-02] MEDS: HYDROmorphone HCL PF 4 MG/ML VIAL IV PUSH PRN ×18 (00:12→13:26)
[2016-03-02] MEDS: SODIUM CHLORIDE 0.9% FLUSH 5 ML FLUSH IVF PRN ×7 (00:12→06:41)
--- NOTE | 2016-03-02 13:16 | HHI.DS ---
Discharge Summary Admission Date Dec 02, 2015 at 12:43 Admitting Diagnosis AMS, respiratory failure, sepsis, ARF, hyperammonemia CBC/BMP: 03/01/16 0327 03/01/16 0327 Significant Findings Laboratory Tests Test 02/28/16 02/29/16 02/29/16 03/01/16 14:12 04:04 05:45 03:27 Total Protein 5.3 GM/DL 5.7 GM/DL (6.0-7.6) (6.4-8.2) Albumin 2.01 GM/DL 1.1 GM/DL 1.1 GM/DL (3.50-5.00) (3.4-5.0) (3.4-5.0) Albumin/Globulin Ratio 0.61 (1.39-2.23) Xamil-0-Oyrqoaigq 0.42 GM/DL (0.11-0.29) Ekalb-8-Xwolqccnm 1.05 GM/DL (0.22-1.00) White Blood Count 18.3 TH/MM3 20.5 TH/MM3 (4.0-11.0) (4.0-11.0) Red Blood Count 2.31 MIL/MM3 3.30 MIL/MM3 (4.50-5.90) (4.50-5.90) Hemoglobin 7.0 GM/DL 10.1 GM/DL (13.0-17.0) (13.0-17.0) Hematocrit 22.0 % 31.0 % (39.0-51.0) (39.0-51.0) Mean Corpuscular Hemoglobin 31.9 % Concent (32.0-36.0) Red Cell Distribution Width 23.0 % 20.0 % (11.6-17.2) (11.6-17.2) Monocytes (%) (Auto) 16.7 % 18.0 % (0.0-8.0) (0.0-8.0) Eosinophils (%) (Auto) 7.4 % (0.0-4.0) 8.1 % (0.0-4.0) Neutrophils # (Auto) 12.1 TH/MM3 13.3 TH/MM3 (1.8-7.7) (1.8-7.7) Monocytes # (Auto) 3.1 TH/MM3 3.7 TH/MM3 (0-0.9) (0-0.9) Eosinophils # (Auto) 1.4 TH/MM3 1.7 TH/MM3 (0-0.4) (0-0.4) Tear Drop Cells 1+ (NORMAL) Blood Urea Nitrogen 94 MG/DL (7-18) 92 MG/DL (7-18) Creatinine 3.21 MG/DL 3.33 MG/DL (0.60-1.30) (0.60-1.30) Estimat Glomerular Filtration 20 ML/MIN (>89) 20 ML/MIN (>89) Rate Random Glucose 141 MG/DL (74-106) Phosphorus Level 5.3 MG/DL 5.9 MG/DL (2.5-4.9) (2.5-4.9) Alkaline Phosphatase 332 U/L (45-117) Blood Gas Base Excess -2.8 mmol/L (-2-2) Arterial Blood pH 7.35 (7.380-7.420) Blood Gas Hemoglobin 10.3 G/DL (12.0-16.0) Lymphocytes (%) (Auto) 8.1 % (9.0-44.0) Band Neutrophils % 8 % (0-6) Lymphocytes % 8 % (9-44) Monocytes % 15 % (0-8) Neutrophils # (Manual) 15.4 TH/MM3 (1.8-7.7) Potassium Level 5.5 MEQ/L (3.5-5.1) Test 03/01/16 06:09 Blood Gas HCO3 21 mmol/L (22-26) Blood Gas Base Excess -4.3 mmol/L (-2-2) Blood Gas Oxygen Saturation 84 % (90-100) Arterial Blood pH 7.32 (7.380-7.420) Arterial Blood Partial 56 mmHg Pressure O2 (61-120) Arterial Blood Oxygen Content 11.8 Vol % (12.0-20.0) Blood Gas Hemoglobin 9.9 G/DL (12.0-16.0) Imaging Last Impressions Chest X-Ray 03/01/16 0600 Signed Impressions: Service Date/Time: Tuesday, March 01, 2016 05:19 - CONCLUSION: 1. Patchy alveolar disease characteristic of edema or pneumonia. There has been no significant change when compared to the prior exam. Ramone Hall MD Renal Ultrasound 02/24/16 0000 Signed Impressions: Service Date/Time: Wednesday, February 24, 2016 19:13 - CONCLUSION: 1. Multiple calcified nonobstructing left renal calculi. The patient's known right renal calculi are not well visualized sonographically. 2. Simple cyst within the lower pole of the right kidney measuring 2.4 cm in size. 3. No hydronephrosis or solid renal mass. 4. Poor visualization of the urinary bladder due to non distension. 5. Probable sludge ball within the gallbladder measuring 4.6 x 4.0 x 2.8 cm. Foster Ferreira MD Brain MRI 02/15/16 0000 Signed Impressions: Service Date/Time: Monday, February 15, 2016 12:16 - CONCLUSION: Minimal chronic fluid in right mastoid air cells toward the tip. New fluid in air cells of the left mastoid suggesting mastoiditis. Intracranially negative other than some minimal deep white matter and periventricular probable microvascular ischemic demyelinization.. Jared Medina MD Head CT 02/13/16 0000 Signed Impressions: Service Date/Time: Saturday, February 13, 2016 12:12 - CONCLUSION: 1. No acute intracranial abnormality. 2. New opacification of the left mastoid air cells. Clinical evaluation for acute left mastoiditis suggested. Osmar Chavez Jr., MD Upper Extremity Ultrasound 01/30/16 0000 Signed Impressions: Service Date/Time: Saturday, January 30, 2016 11:18 - CONCLUSION: Limited exam without thrombus identified. Raudel Mckinney MD FACR Thoracentesis 01/28/16 0000 Signed Impressions: Service Date/Time: Thursday, January 28, 2016 12:54 - CONCLUSION: Uncomplicated CT-guided thoracentesis. Ramone Hall MD Abdomen/Pelvis CT 01/23/16 0800 Signed Impressions: Service Date/Time: Saturday, January 23, 2016 09:05 - CONCLUSION: Relative to the prior study the marked distention of the stomach is reduced. There is a persistent 5 cm left upper quadrant sub-diaphragmatic fluid collection and drain in the left upper quadrant. Patient is post splenectomy. Jejunostomy is in place and ostomy is noted in the right lower abdomen. No free fluid or free air is appreciated and there is no evidence of obstruction. Bilateral pleural effusions persists small but slightly larger on the right with left lower lobe consolidation. Jared Medina MD ADDENDUM: I have reviewed the images with respect to her request made for left subdiaphragmatic drainage of a fluid collection. No fluid collection is observed within the left upper quadrant. There is residual splenic tissue that measures 5 cm in diameter with Hounsfield units 62. The stomach fundus extends up into the subdiaphragmatic location. No subdiaphragmatic fluid collection is observed. Surgical drains are noted. Osmar Chavez Jr., MD Chest CT 01/05/16 0000 Signed Impressions: Service Date/Time: Tuesday, January 05, 2016 23:15 - CONCLUSION: 1. Persistent left lower lobar consolidation. Improved consolidative infiltrates in the right lower lung. 2. Interval increase size bilateral pleural effusions , left greater than right. Osmar Alegria MD Celiac/Hepatic Arteriogram 12/27/15 0000 Signed Impressions: Service Date/Time: December 13:41 - CONCLUSION: 1. No active GI bleed identified. Robert Mckinney MD Abdomen X-Ray 12/18/15 0000 Signed Impressions: Service Date/Time: Friday, December 18, 2015 16:05 - CONCLUSION: Feeding tube tip is at the gastric antrum. Arnaldo Elias MD Hospital Course 55-year-old male brought by EMS with altered mental status. He has history of chronic opiate medications including methadone and morphine that he takes for pain management and hence they gave him Narcan IV which brought the GCS up to 13. The blood glucose was 74. He has open wounds from his right upper and bilateral lower extremities. He has history of hepatitis C. Last week he was pealing and eating shrimps. Bedside blood sugar was 76 in the ER. He was tachycardic in 1 teens and was intubated in the ED for airway protection. Admitted to ICU with sepsis due to Staph Aureus hand infection and E. Coli bacteriemia. Hospital course complicated by perforated ascending colon with extended right hemicolectomy, primary ileocolic anastamosis, open abdomen, septic shock, acute hypoxic and hypercarbic respiratory failure 12/19. Taken back to the OR 12/20 afternoon for washout and completion colectomy. 12/25 Hemoglobin dropped to 4.1. Noted to have bloody drainage from G-tube and dorsal ileostomy with black stool output due to 2 gastric ulcers bleeding, stomach a significant part had decreased discoloration indicating probable ischemia. s/p epi injection and cauterization. 12/27Tracheostomy placed. 01/06: Underwent exploratory laparotomy with findings of bleeding gastric ulcer which was oversewn by Dr. Verdin abdomen left open with wound VAC in place. Now closed. On trach collar occasionally alternation intermittently with a CPAP. 02/10 Tmax 100.0. The patient has been maintain on CPAP 15 over 5/24 hours without difficulty. O2 saturations greater than 92%. Plan for trach collar trials today. 02/11 Tmax 98.4. The patient was unable to begin trach collar trials yesterday. The patient became tachypnea, RR 50's on CPAP at 4:30 yesterday requiring mechanical ventilation being placed on a rate.Patient has been maintained on mechanical ventilation overnight without any respiratory distress. O2 saturation remains 9798%. No episodes of nausea last night the patient tolerated tube feeds at 50/cc, will advance to goal today. 02/12 Afebrile. This a.m., upon examination, the patient spontaneously had eyes open but was not responding to commands as previously. Noted facial twitching eye twitching specifically the right side of face. The patient was not mouthing any words. Concern for subclinical seizure activity, or elevated ammonia levels. Ammonia level drawn, CT scan obtained EEG pending. Patient also did not tolerate tube feeds overnight. 02/13. Patient has tolerated tube feeds for the last 24 hours, noted albumin level decreased slightly from 1.1-1.0. Nutrition reconsulted for possible supplementation aids. Patient underwent EEG yesterday,, inconclusive could be of epileptiform significant, study was limited due to excessive artifact. CT brain revealed possible left mastoiditis, ammonia level not elevated .Upon examination, patient continues to have facial twitching, intermittently. 02/14 Afebrile. The patient continues to tolerate tube feeds currently at 40 cc /hour, no nausea last evening. Continue noted facial twitching by staff, the patient will go undergo MRI studies today. The patient was able to tolerate CPAP trials for 12 hours yesterday, and class placed back on the vent at 6 PM. 02/15: afebrile. neuro symptoms have resolved. now talking and interactive. smiling. 02/16: afebrile. mental status back to baseline. tolerating cpap 18/5/40% today. interactive. I had a long conversation with the Sarah family today about the fact that, while we continue to make small progresses in his acute illnesses, we have made huge steps backwards in overall functioning. He is much more malnurished and deconditioned than he was on admission, and he is now starting to get opportunistic type infections. All of these point to an overall decline , and I am concerned that he may not survive to hospital discharge, but succumb to repeat medical complications from his now chronic medical diseases. I expressed that I would continue to remain aggressive as long as he wanted me to , but the family needed to start to think about very realistic goals of care, and if we continued to decline in overall functional status and deconditioning, we may consider if we have an acute decline, transitioning to a more comfort type goals. They expressed understanding of this. 02/17: No acute events overnight. Conversation with family per Dr. Chavez yesterday. Patient was placed on Hytrin yesterday. Patient is alert and responsive, mouthing words. Patient continues to tolerate CPAP. 02/18: Afebrile. The patient tolerated CPAP for 5 hours today. Evaluation on right hand digits remain edematous and reddened, noted Adaptic adherence to tendons. Wound care we consulted regarding clarification of wound care instructions. 02/19: The patient tolerated trach collar trials for approximately 30 minutes yesterday. The patient continues on CPAP trials today. Neurology was consulted regarding repeat EEG showing several spikes possible epileptiform activity. Wound care was reconsulted regarding edematous reddened digits right hand and left forearm. 02/20: still with CPAP trials. per plastics, plan for debridement of hand tomorrow in OR. Neuro started Keppra 500mg q12h. otherwise, no acute changes. 02/21: no clinical changes. does have an area of non-blanchable redness over left ear lobe. this is not painful for him. it is the side of his head that he prefers to lay on when resting. We are placing bacitracin on it and keeping pressure off of this area. I had a long family meeting with the Sarah family and palliative care. We talked about long-term goals, and some possibilities if he does not improve, but continues to have a very indolent downward decline. Both his stepdaughter and have agreed that if he were to decline to the point of needing CPR for cardiac arrest, he would not want to live in that deconditioned state, even if we were able to regain circulation. Thus, I have made the patient DNR. Otherwise, plan for OR today for hand debridement. 02/22: debridement of wounds yesterday. still doing well on CPAP, but fails t- piece for tachycardia and tachypnea. Cr bumped from 1.3 to 1.9. clinically he appears slightly dehydrated, even though he has such poor nutritional status that he remains anasarcic. 02/23: no changes clinically. OOB to chair. tolerated SBT all night last night, but tired out today and required rate on vent given fatigue. Cr continues to rise despite gentle hydration. 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 02/24: The patient failed trach collar trials yesterday. CPAP initiated this morning. Patient's urine output unchanged, with a liter of LR bolus yesterday. Creatinine slightly increased today. 02/25: The patient remained out of bed in the chair for approximately 3 hours today. The patient was bolused with 1 L of IV fluid, secondary to low urinary output. The patient failed T piece trials, lasting only 20 minutes. 02/26: The patient was bolused with a liter fluid yesterday, increased urine output overnight totaling 650 cc for 12 hours. Creatinine elevated. Renal consult, appreciate recommendations The patient's mentation was noted to be diminished this morning, ammonia level 41. Will begin lactulose. CPAP trials lasted 9 hours yesterday, unable to successfully perform T piece trial. 02/27 worsening renal function. Family debating use of HD if needed` 02/28 complete opacification of l;eft hemothorax, bronchoscopy 03/01 worsening renal function Pt Condition on Discharge: Fair Discharge Disposition: Hospice/ Home Discharge Instructions DIET: Follow Instructions for: As Tolerated, No Restrictions Speech Therapy-Diet Recommenda: Honey Thickened Liquids Activities you can perform: Regular-No Restrictions Chalino Mac MD Mar 02, 2016 13:16
[2016-03-03] MEDS ORDERED: REMOVE OLD DURAGESIC (FENTANYL) PATCH TD SCH (18:00)
[2016-03-04 03:53] LABS: MYELOPEROXIDASE LESS THAN 1.0 AI (<1.0); PROTEINASE-3 LESS THAN 1.0 AI (<1.0)
== END 2016-03-02 13:48 | disposition hospice, inpatient (51) | DRG 3 ==
LOC: NEPA 10:07 → NEDA 12:43 → HIME 14:50 → N03B 12-19 18:23
PROVIDERS: ADMIT Internal Medicine Critical Care Medicine; ATTEND Internal Medicine Critical Care Medicine
PROC: 0KBC0ZZ Excision of Right Hand Muscle, Open Approach (ICD-10-PCS; 2015-12-02)
PROC: 5A1955Z Respiratory Ventilation, Greater than 96 Consecutive Hours (ICD-10-PCS; 2015-12-02)
PROC: 0KB90ZZ Excision of Right Lower Arm and Wrist Muscle, Open Approach (ICD-10-PCS; 2015-12-02)
PROC: 0BH17EZ Insertion of Endotracheal Airway into Trachea, Via Natural or Artificial Opening (ICD-10-PCS; 2015-12-02)
PROC: 02HV33Z Insertion of Infusion Device into Superior Vena Cava, Percutaneous Approach (ICD-10-PCS; 2015-12-02)
PROC: 30233N1 Transfusion of Nonautologous Red Blood Cells into Peripheral Vein, Percutaneous Approach (ICD-10-PCS; 2015-12-02)
PROC: 30233R1 Transfusion of Nonautologous Platelets into Peripheral Vein, Percutaneous Approach (ICD-10-PCS; 2015-12-06)
PROC: 0M930ZZ Drainage of Right Elbow Bursa and Ligament, Open Approach (ICD-10-PCS; 2015-12-08)
PROC: 0HBDXZZ Excision of Right Lower Arm Skin, External Approach (ICD-10-PCS; 2015-12-08)
PROC: 0HDFXZZ Extraction of Right Hand Skin, External Approach (ICD-10-PCS; 2015-12-11)
PROC: 02HV33Z Insertion of Infusion Device into Superior Vena Cava, Percutaneous Approach (ICD-10-PCS; 2015-12-14)
PROC: B544ZZA Ultrasonography of Left Jugular Veins, Guidance (ICD-10-PCS; 2015-12-14)
PROC: 0DTF0ZZ Resection of Right Large Intestine, Open Approach (ICD-10-PCS; 2015-12-19)
PROC: 0DBT0ZZ (ICD-10-PCS; 2015-12-19)
PROC: 30233K1 Transfusion of Nonautologous Frozen Plasma into Peripheral Vein, Percutaneous Approach (ICD-10-PCS; 2015-12-19)
PROC: 0DTG0ZZ Resection of Left Large Intestine, Open Approach (ICD-10-PCS; 2015-12-21)
PROC: 0F9G00Z Drainage of Pancreas with Drainage Device, Open Approach (ICD-10-PCS; 2015-12-21)
PROC: 06L Lower Veins, Occlusion (ICD-10-PCS; 2015-12-22)
PROC: 0W3P0ZZ Control Bleeding in Gastrointestinal Tract, Open Approach (ICD-10-PCS; 2015-12-22)
PROC: 0F9G00Z Drainage of Pancreas with Drainage Device, Open Approach (ICD-10-PCS; 2015-12-22)
PROC: 30233M1 Transfusion of Nonautologous Plasma Cryoprecipitate into Peripheral Vein, Percutaneous Approach (ICD-10-PCS; 2015-12-22)
PROC: 0DH60UZ Insertion of Feeding Device into Stomach, Open Approach (ICD-10-PCS; 2015-12-24)
PROC: 0W9G00Z Drainage of Peritoneal Cavity with Drainage Device, Open Approach (ICD-10-PCS; 2015-12-24)
PROC: 0D1B0Z4 Bypass Ileum to Cutaneous, Open Approach (ICD-10-PCS; 2015-12-24)
PROC: 3E1M38Z Irrigation of Peritoneal Cavity using Irrigating Substance, Percutaneous Approach (ICD-10-PCS; 2015-12-24)
PROC: 0DHA3UZ Insertion of Feeding Device into Jejunum, Percutaneous Approach (ICD-10-PCS; 2015-12-24)
PROC: 0W3P8ZZ Control Bleeding in Gastrointestinal Tract, Via Natural or Artificial Opening Endoscopic (ICD-10-PCS; 2015-12-26)
PROC: 0B113F4 Bypass Trachea to Cutaneous with Tracheostomy Device, Percutaneous Approach (ICD-10-PCS; principal; 2015-12-28)
PROC: 0BJ08ZZ Inspection of Tracheobronchial Tree, Via Natural or Artificial Opening Endoscopic (ICD-10-PCS; 2015-12-28)
PROC: 02HV33Z Insertion of Infusion Device into Superior Vena Cava, Percutaneous Approach (ICD-10-PCS; 2015-12-30)
PROC: 03HY32Z Insertion of Monitoring Device into Upper Artery, Percutaneous Approach (ICD-10-PCS; 2016-01-05)
PROC: 02HV33Z Insertion of Infusion Device into Superior Vena Cava, Percutaneous Approach (ICD-10-PCS; 2016-01-05)
PROC: B548ZZA Ultrasonography of Superior Vena Cava, Guidance (ICD-10-PCS; 2016-01-05)
PROC: 0B9B8ZX Drainage of Left Lower Lobe Bronchus, Via Natural or Artificial Opening Endoscopic, Diagnostic (ICD-10-PCS; 2016-01-05)
PROC: 0B988ZX Drainage of Left Upper Lobe Bronchus, Via Natural or Artificial Opening Endoscopic, Diagnostic (ICD-10-PCS; 2016-01-05)
PROC: 0W3P0ZZ Control Bleeding in Gastrointestinal Tract, Open Approach (ICD-10-PCS; 2016-01-07)
PROC: 0WQF0ZZ Repair Abdominal Wall, Open Approach (ICD-10-PCS; 2016-01-09)
PROC: 0B21XFZ Change Tracheostomy Device in Trachea, External Approach (ICD-10-PCS; 2016-01-20)
PROC: 0W9B3ZZ Drainage of Left Pleural Cavity, Percutaneous Approach (ICD-10-PCS; 2016-01-28)
PROC: 0LB70ZZ Excision of Right Hand Tendon, Open Approach (ICD-10-PCS; 2016-02-22)
PROC: 0JBH0ZZ Excision of Left Lower Arm Subcutaneous Tissue and Fascia, Open Approach (ICD-10-PCS; 2016-02-22)
PROC: 0DB68ZX Excision of Stomach, Via Natural or Artificial Opening Endoscopic, Diagnostic (ICD-10-PCS; 2016-02-29)
PROC: 0B968ZX Drainage of Right Lower Lobe Bronchus, Via Natural or Artificial Opening Endoscopic, Diagnostic (ICD-10-PCS; 2016-02-29)
PROC: 0B948ZX Drainage of Right Upper Lobe Bronchus, Via Natural or Artificial Opening Endoscopic, Diagnostic (ICD-10-PCS; 2016-02-29)
PROC: 0B958ZX Drainage of Right Middle Lobe Bronchus, Via Natural or Artificial Opening Endoscopic, Diagnostic (ICD-10-PCS; 2016-02-29)
DX: A41.01 Sepsis due to Methicillin susceptible Staphylococcus aureus (principal); D65 Disseminated intravascular coagulation [defibrination syndrome]; N17.0 Acute kidney failure with tubular necrosis; K55.042 Diffuse acute infarction of large intestine; R65.21 Severe sepsis with septic shock; R57.1 Hypovolemic shock; K63.1 Perforation of intestine (nontraumatic); J90 Pleural effusion, not elsewhere classified; M72.6 Necrotizing fasciitis; G93.49 Other encephalopathy; J96.02 Acute respiratory failure with hypercapnia; J96.01 Acute respiratory failure with hypoxia; J18.9 Pneumonia, unspecified organism; K25.4 Chronic or unspecified gastric ulcer with hemorrhage; T81.19XA Other postprocedural shock, initial encounter; E43 Unspecified severe protein-calorie malnutrition; E72.20 Disorder of urea cycle metabolism, unspecified; N39.0 Urinary tract infection, site not specified; E87.2 Acidosis; D62 Acute posthemorrhagic anemia; A04.7 Enterocolitis due to Clostridium difficile; K92.2 Gastrointestinal hemorrhage, unspecified; I47.1 Supraventricular tachycardia; E27.3 Drug-induced adrenocortical insufficiency; E87.0 Hyperosmolality and hypernatremia; R18.8 Other ascites; J98.11 Atelectasis; J95.851 Ventilator associated pneumonia; B37.0 Candidal stomatitis; G62.81 Critical illness polyneuropathy; H70.002 Acute mastoiditis without complications, left ear; Z51.5 Encounter for palliative care; B37.7 Candidal sepsis; A41.51 Sepsis due to Escherichia coli [E. coli]; B18.2 Chronic viral hepatitis C; S51.802A Unspecified open wound of left forearm, initial encounter; N18.9 Chronic kidney disease, unspecified; I12.9 Hypertensive chronic kidney disease with stage 1 through stage 4 chronic kidney disease, or unspecified chronic kidney disease; L89.899 Pressure ulcer of other site, unspecified stage; K21.0 Gastro-esophageal reflux disease with esophagitis; R56.9 Unspecified convulsions; G43.709 Chronic migraine without aura, not intractable, without status migrainosus; N50.89 Other specified disorders of the male genital organs; E11.65 Type 2 diabetes mellitus with hyperglycemia; R48.8 Other symbolic dysfunctions; R40.2422 Glasgow coma scale score 9-12, at arrival to emergency department; E11.22 Type 2 diabetes mellitus with diabetic chronic kidney disease; E87.5 Hyperkalemia; E86.0 Dehydration; D63.8 Anemia in other chronic diseases classified elsewhere; D72.1 Eosinophilia; E87.70 Fluid overload, unspecified; M10.9 Gout, unspecified; G89.28 Other chronic postprocedural pain; E83.39 Other disorders of phosphorus metabolism; E87.6 Hypokalemia; M06.9 Rheumatoid arthritis, unspecified; M85.80 Other specified disorders of bone density and structure, unspecified site; G47.33 Obstructive sleep apnea (adult) (pediatric); T38.0X5A Adverse effect of glucocorticoids and synthetic analogues, initial encounter; Y84.8 Other medical procedures as the cause of abnormal reaction of the patient, or of later complication, without mention of misadventure at the time of the procedure; Y84.6 Urinary catheterization as the cause of abnormal reaction of the patient, or of later complication, without mention of misadventure at the time of the procedure; Y95 Nosocomial condition; Y92.239 Unspecified place in hospital as the place of occurrence of the external cause; Z66 Do not resuscitate; Z79.891 Long term (current) use of opiate analgesic; Z86.010 Personal history of colon polyps; Z88.0 Allergy status to penicillin; Z88.1 Allergy status to other antibiotic agents; Z88.5 Allergy status to narcotic agent; Z99.81 Dependence on supplemental oxygen; Z90.81 Acquired absence of spleen
CPT/HCPCS: 10061; 31500; 32555; 36245; 36247; 36248; 36430; 36556; 36600; 51702; 70450; 70553; 71010; 71250; 74000; 74176; 74177; 75726; 75774; 76775; 76937; 80048; 80053; 80069; 80076; 80202; 80301; 80320; 80329; 81001; 82040; 82043; 82140; 82150; 82533; 82550; 82552; 82565; 82570; 82805; 82948; 83010; 83540; 83550; 83605; 83615; 83690; 83735; 83880; 84100; 84132; 84134; 84155; 84165; 84300; 84443; 84484; 84540; 85007; 85014; 85018; 85025; 85027; 85060; 85384; 85610; 85730; 86021; 86022; 86038; 86160; 86403; 86850; 86900; 86901; 86920; 86927; 86965; 87015; 87040; 87070; 87077; 87086; 87102; 87106; 87116; 87147; 87185; 87186; 87205; 87206; 87493; 87641; 88305; 88307; 88309; 88312; 93005; 93308; 93971; 94002; 94003; 94150; 94640; 94664; 94667; 94668; 95819; 96360; 96365; 96366; 96367; 96375; 99292; A7521; A9579; C1729; C1760; C1765; C1769; C1887; C1894; C9113; G0269; G0479; J0131; J0171; J0282; J0289; J0360; J0461; J0610; J0690; J0692; J0696; J0713; J1100; J1170; J1205; J1230; J1450; J1580; J1644; J1650; J1720; J1815; J1817; J1940; J1980; J2060; J2248; J2250; J2270; J2370; J2405; J2997; J3010; J3370; J3430; J3475; J3480; J7030; J7040; J7050; J7060; J7070; J7120; J7512; P9016; P9017; P9031; P9035; P9045; P9047; Q9963; Q9967